=== PATIENT | male | born 1960 | race African-American/Black ===

== ENCOUNTER 2020-06-20 18:05 | Emergency (ER) | payer BC, SELFPAY ==
--- NOTE | ~2020-06-20 | XR_ITS ---
XR chest 1V portable DATE: 06/20/2020 19:05 INDICATION: Syncopal episode for 5 minutes TECHNIQUE: Portable AP chest on 06/20/2020 at 1845 hours COMPARISON: None FINDINGS: Status post sternotomy. Heart size is within normal range. No pulmonary infiltrate or conso lidation, pleural effusion or pulmonary vascular congestion or pneumothorax. IMPRESSION: Status post sternotomy; no active cardiopulmonary disease Reviewed, dictated and finalized at location A.
[2020-06-20 18:07] VITALS: BP 140/64; PULSE 69; RESP 18; TEMP 36.9; O2SAT 97
--- NOTE | 2020-06-20 18:35 | ECG_ITS ---
Measurements Intervals [place] Rate: 73 P: 67 WI: 163 QRS: 53 QRSD: 85 T: -66 QT: 418 QTc: 461 Interpretive Statements SINUS RHYTHM ST-T WAVE ABNORMALITY IN INF/LAT LEADS- CONSIDER ISCHEMIA ABNORMAL ECG Electronically Signed On 06-21-2020 8:18:20 CDT by Alexis Joshi D.O.
[2020-06-20 18:51] LABS: Basophils Percent Auto 0.3 % (0.2-1.2); Eosinophils Absolute Auto 0.1 K/mm3 (0-0.3); Hematocrit 34.3 % (42.0-52.0); Hemoglobin 11.5 g/dL (14.0-18.0); Immature Granulocyte Absolute 0.01 K/mm3 (0.00-0.031); Immature Granulocyte Percent A 0.2 % (0-0.5); Lymphocytes Percent Auto 39.2 % (18.3-44.2); Mean Corpuscular HGB Conc 33.5 g/dl (32-36); Mean Corpuscular Hemoglobin 30.1 pg (26-34); Mean Corpuscular Volume 89.8 fl (80-100); Mean Platelet Volume 9.4 fl (7.4-10.4); Monocytes Absolute Auto 0.6 K/mm3 (0.1-0.6); Monocytes Percent Auto 9.6 % (2.6-8.5); Neutrophils Absolute Auto 2.9 K/mm3 (1.3-6.7); Neutrophils Percent Auto 48.7 % (45.5-73.1); Platelet Count Result 177 k/mm3 (150-375); Red Blood Count 3.82 M/mm3 (4.6-6.20); Red Cell Distribution Width 14.4 % (11.5-14.5); White Blood Count 5.9 K/mm3 (4.5-10.0)
[2020-06-20 19:02] LABS: INR 0.9; Prothrombin Time 12.3 Seconds (11.1-14.7)
[2020-06-20 19:04] LABS: Alanine Aminotransferase 31 U/L (4-50); Albumin Level 4.1 g/dL (3.5-5.1); Alkaline Phosphatase 56 U/L (38-126); Anion Gap 14 mmol/L (8-16); Aspartate Amino Transferase 45 U/L (17-59); Bilirubin,Total 0.4 mg/dL (0.2-1.3); Blood Urea Nitrogen 12 mg/dL (9-20); Carbon Dioxide 22 mmol/L (22-30); Chloride 102 mmol/L (98-107); Estimated CRCL calculation 110 ml/min; Estimated Glomerular Filt Rate > 60; Glucose 92 mg/dL (75-110); Potassium 3.1 mmol/L (3.4-5.0); Sodium 138 mmol/L (137-145)
[2020-06-20 19:05] LABS: D Dimer 0.48 ug/mL (<0.48)
[2020-06-20 19:18] LABS: Troponin I 0.031 ng/mL (0.000-0.034)
--- NOTE | 2020-06-20 20:04 | ED.SYNCOPE ---
HPI - Syncope General Chief Complaint: Syncope Stated Complaint: SYNCOPAL EPISODE Time Seen by Provider: 06/20/20 18:15 Source: patient and family Mode of arrival: EMS Limitations: no limitations History of Present Illness HPI narrative: 59-year-old with a history of hypertension, diabetes was brought in ambulance with complaints of syncopal episode. Patient was sitting in the on the couch passed out for a few minutes. During this time there was no involuntary movement. No bladder or bowel incontinence. Patient denies any chest pain. Denies any palpitation prior to the event. The time he came to the ER he states he is feeling much better. complaint: almost passed out Onset (ago): minute(s) (2 -3) -: minutes(s) Injuries sustained associated with event: none Current symptoms: none Related Data Allergies Allergy/AdvReac Type Severity Reaction Status Date / Time penicillin G Allergy Swelling Verified 06/20/20 18:11 Review of Systems Review of Systems: All systems reviewed & are unremarkable except as noted in HPI and below Constitutional: Constitutional: Reports no additional constitutional complaints ENT: Reports system reviewed and no additional complaints, except as documented Cardiovascular: Cardiovascular: Reports no additional cardiovascular complaints Respiratory: Respiratory: Reports no additional respiratory complaints Gastrointestinal: Gastrointestinal: Reports no additional gastrointestinal complaints Musculoskeletal: Musculoskeletal: Reports no additional musculoskeletal complaints Integumentary/Breasts: Skin/Breast: Reports system reviewed and no additional complaints, except as docu Exam Narrative: Exam Narrative: GENERAL: Well-appearing, well-nourished, and in no acute distress. HEAD: Normocephalic, atraumatic. EYES: PERRLA and EOMI. ENT: Nares clear, no rhinorrhea or epistaxis. Mucous membranes moist. NECK: Supple. CHEST: Clear to auscultation. No respiratory distress. HEART: Regular rate and rhythm. No murmur heard. Normal peripheral pulses. ABDOMEN: Soft, nontender, nondistended, normal active bowel sounds. EXTREMITIES: Normal range of motion. No edema. SKIN: Warm, dry, no rash. NEURO: No focal deficits. Alert and oriented x3. PSYCH: Normal mood and affect. Course Course Emergency Course: With a history of syncopal episode regular do a CBC chemistry EKG and placed on the satellite project site monitor. Vital Signs Vital signs: Vital Signs Temperature 36.9 C 06/20/20 18:07 Pulse Rate 69 06/20/20 18:07 Respiratory Rate 18 06/20/20 18:07 Blood Pressure 140/64 06/20/20 18:07 Pulse Oximetry 97 06/20/20 18:07 Temperature 36.9 C 06/20/20 18:07 Pulse Rate 69 06/20/20 18:07 Respiratory Rate 18 06/20/20 18:07 Blood Pressure 140/64 06/20/20 18:07 Pulse Oximetry 97 06/20/20 18:07 MDM - Syncope Differential Diagnosis Differential diagnosis: Likely syncope due to orthostatic hypotension, vasovagal syncope and pulmonary embolism Lab Data Result diagrams: 06/20/20 18:44 06/20/20 18:44 Labs: Lab Results 06/20/20 06/20/20 06/20/20 Range/Units 18:44 18:44 18:44 WBC 5.9 (4.5-10.0) K/mm3 RBC 3.82 L (4.6-6.20) M/mm3 Hgb 11.5 L (14.0-18.0) g/dL Hct 34.3 L (42.0-52.0) % MCV 89.8 (80-100) fl MCH 30.1 (26-34) pg MCHC 33.5 (32-36) g/dl RDW 14.4 (11.5-14.5) % Plt Count 177 (150-375) k/mm3 MPV 9.4 (7.4-10.4) fl Immature Gran % (Auto) 0.2 (0-0.5) % Neut % (Auto) 48.7 (45.5-73.1) % Lymph % (Auto) 39.2 (18.3-44.2) % [place] % (Auto) 9.6 H (2.6-8.5) % Eos % (Auto) 2.0 (0-4.4) % Baso % (Auto) 0.3 (0.2-1.2) % Lymph # (Auto) 2.30 (0.9-3.2) K/mm3 [place] # (Auto) 0.6 (0.1-0.6) K/mm3 Eos # (Auto) 0.1 (0-0.3) K/mm3 Baso # (Auto) 0.0 (0.0-0.1) K/mm3 Abs Immat Gran (auto) 0.01 (0.00-0.031) K/mm3 Absolute Neuts (auto) 2.9 (1.3-6.7) K/mm3 Absolute Nucle
[2020-06-20 21:03] VITALS: BP 117/67; PULSE 80; RESP 20; O2SAT 99
== END 2020-06-20 21:04 | disposition home or self-care (01) ==
PROVIDERS: Emergency Provider Family Medicine
DX: R55 Syncope and collapse (principal); I10 Essential (primary) hypertension; E11.9 Type 2 diabetes mellitus without complications; R94.31 Abnormal electrocardiogram [ECG] [EKG]
CPT/HCPCS: 36415; 71045; 80053; 84484; 85025; 85380; 85610; 93005; 99284

== ENCOUNTER 2024-09-22 22:23 | Emergency (ER) | payer MEDICARE, SELFPAY ==
--- NOTE | ~2024-09-22 | XR_ITS ---
EXAMINATION: XR chest 1V portable Exam Date/Time: 09/22/2024 22:37 YARD RIGGER HISTORY: syncopal episode Comparison: 06/20/2020. RESULT: Lines, tubes, and devices: Intact sternotomy wires. Mediastinal surgical clips. Lungs and pleura: Subsegmental airspace disease in the left lung base. Cardiomediastinal silhouette: Stable. Calcified node. Other: No acute osseous or upper abdominal finding. IMPRESSION: Subsegmental left basilar atelectasis/consolidation. Aspiration could also be considered in this loca tion. Reviewed, dictated and finalized at location K. RIGGER IMPRESSION: Subsegmental left basilar atelectasis/consolidation. Aspiration could also be c onsidered in this location.
[2024-09-22 22:27] VITALS: BP 117/73; PULSE 77; RESP 15; TEMP 36.6; O2SAT 100
--- NOTE | 2024-09-22 22:29 | ECG_ITS ---
Test Date: 2024-09-22 22:32:58 Measurements Intervals [employer] Rate: 75 P: 30 OH: 145 QRS: 18 QRSD: 97 T: -88 QT: 386 QTc: 431 Interpretive Statements SINUS RHYTHM LOW QRS VOLTAGE IN PRECORDIAL LEADS [QRS DEFLECTION < 1.0 mV IN CHEST LEADS] NONSPECIFIC ST AND T WAVE ABNORMALITY No previous ECG available for comparison Electronically Signed On 09-23-2024 14:53:00 JACKERMAN by Bienvenido Quinonez M.D.
[2024-09-22 23:27] LABS: Basophils Percent Auto 0.3 % (0.2-1.2); Eosinophils Absolute Auto 0.1 K/mm3 (0-0.3); Eosinophils Percent Auto 1.7 % (0-4.4); Hematocrit 37.3 % (42.0-52.0); Hemoglobin 11.7 g/dL (14.0-18.0); Immature Granulocyte Absolute 0.02 K/mm3 (0.00-0.031); Immature Granulocyte Percent A 0.3 % (0-0.5); Lymphocytes Absolute Auto 1.98 K/mm3 (0.9-3.2); Lymphocytes Percent Auto 28.5 % (18.3-44.2); Mean Corpuscular HGB Conc 31.4 g/dl (32-36); Mean Corpuscular Hemoglobin 26.2 pg (26-34); Mean Corpuscular Volume 83.6 fl (80-100); Mean Platelet Volume 9.5 fl (7.4-10.4); Monocytes Absolute Auto 0.5 K/mm3 (0.1-0.6); Monocytes Percent Auto 7.5 % (2.6-8.5); Neutrophils Absolute Auto 4.3 K/mm3 (1.3-6.7); Neutrophils Percent Auto 61.7 % (45.5-73.1); Platelet Count Result 248 k/mm3 (150-375); Red Blood Count 4.46 M/mm3 (4.6-6.20); Red Cell Distribution Width 15.3 % (11.5-14.5); White Blood Count 6.9 K/mm3 (4.5-10.0)
[2024-09-22 23:44] LABS: Alanine Aminotransferase 12 U/L (6-50); Albumin Level 4.1 g/dL (3.5-5.1); Alkaline Phosphatase 70 U/L (38-126); Anion Gap 6 mmol/L (4-12); Aspartate Amino Transferase 27 U/L (17-59); Bilirubin,Total 0.4 mg/dL (0.2-1.3); Blood Urea Nitrogen 23 mg/dL (9-20); Calcium 9.4 mg/dL (8.4-10.2); Carbon Dioxide 28 mmol/L (22-30); Chloride 104 mmol/L (98-107); Estimated CRCL calculation 62 ml/min; Estimated Glomerular Filt Rate > 60; Glucose 135 mg/dL (65-110); Potassium 4.1 mmol/L (3.4-5.0); Sodium 138 mmol/L (137-145)
--- NOTE | 2024-09-22 23:56 | ED_ITS ---
HPI - Syncope General Chief Complaint: Syncope Stated Complaint: SYNCOPE WHILE USING TOILET Time Seen by Provider: 09/22/24 22:41 Source: patient, family ( Sister and daughter) and RN notes reviewed Mode of arrival: EMS ( [facility] Parn[facility]) Limitations: physical limitation History of Present Illness HPI narrative: patient presents after report of an episode of syncope while on the toilet having a large bowel movement. He lost muscle tone and was briefly unresponsive. Family notes that he came back to baseline but then when he sat up again nearly immediately, this occurred again. They note that this had happened once before previous to his stroke. his CVA has left him with deficits. Patient has no complaints. No history of heart failure Though does have a history of open-heart surgery due to coronary artery blockages. Also history of hypertension and diabetes mellitus. Blood glucose 142 mg/dL. Patient denies dizziness, shortness of breath, or chest pain. 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 HEAD: Normocephalic, atraumatic. EYES: patch over 1 eye ENT: Nares clear, no rhinorrhea or epistaxis. NECK: Supple. CHEST: Speaking in full sentences. No respiratory distress. Lungs clear to auscultation bilaterally without wheezes/crackles. HEART: Regular rate and rhythm. . ABDOMEN: Soft, nondistended. EXTREMITIES: Normal range of motion. 1+ bilateral lower extremity edema. SKIN: Warm, dry, no rash. NEURO: unilateral deficits. Alert and oriented though defers much of medication history to family members. PSYCH: Normal mood and affect. Course Vital Signs Vital signs: Vital Signs Temperature 97.8 F 09/22/24 22:27 Pulse Rate 77 09/22/24 22:27 Respiratory Rate 15 09/22/24 22:27 Blood Pressure 117/73 09/22/24 22:27 Pulse Oximetry 100 09/22/24 22:27 Oxygen Delivery Room Air 09/22/24 22:27 Temperature 97.8 F 09/22/24 22:27 Pulse Rate 77 09/23/24 03:30 Respiratory Rate 15 09/23/24 03:30 Blood Pressure 124/70 09/23/24 03:30 Pulse Oximetry 100 09/23/24 03:30 Oxygen Delivery Room Air 09/22/24 22:27 MDM - Syncope MDM Narrative Medical decision making narrative: Patient presents after a syncopal episode while having a large bowel on the toilet. It was noted that he became diaphoretic and briefly lost muscle tone and was unresponsive but then came back to his baseline. He did try a sit-up nearly immediately afterwards and it happened again but has not since recurred. In the emergency department they are afebrile with vital signs within normal limits. discussed with patient and family various causes of syncope and that this likely represents vasovagal syncope of the workup be performed to assess for possible other etiologies. Chest x-ray shows atelectasis. Also consideration of possible aspiration although patient does not currently have white count and has normal vital signs without complaint of chest pain shortness of breath. Theodore Syncope Rule: Congestive heart failure history: 0 Hematocrit <30%: 0 EKG abnormal (changed or any non-sinus rhythm): 0 SOB symptoms: 0 SBP <90mmHg at triage: 0 Considered low risk. ProBNP not elevated enough to suggest acute heart failure. Orthostatics are performed the nurse reports them to me. It is reported that he was a bit unsteady on his feet but not dizzy and at baseline he is unsteady of his on his feet secondary to his known deficits from his stroke. Thus, not newly symptomatic due to orthostatic reasons. Patient stable for discharge at this time. Initial plan was for EMS transportation to be arranged however due to the significant time delay, family did opt to transfer him by private vehicle as they state that if given assistance to get him into the vehicle at the hospital, there are multiple people ready at the home to help with transfer from vehicle into the house. Differential Diagnosis Differential diagnosis: Likely syncope due to orthostatic hypotension, vasovagal syncope, complete atrioventricular block and dehydration Lab Data Attestation: I reviewed the patient's lab results. Lab results narrative: Normocytic anemia, stable from previous 09/22/24 23:22 09/22/24 23:22 Labs: Lab Results 09/22/24 Range/Units 23:22 WBC 6.9 (4.5-10.0) K/mm3 RBC 4.46 L (4.6-6.20) M/mm3 Hgb 11.7 L (14.0-18.0) g/dL Hct 37.3 L (42.0-52.0) % MCV 83.6 (80-100) fl MCH 26.2 (26-34) pg MCHC 31.4 L (32-36) g/dl RDW 15.3 H (11.5-14.5) % Plt Count 248 (150-375) k/mm3 MPV 9.5 (7.4-10.4) fl Immature Gran % (Auto) 0.3 (0-0.5) % Neut % (Auto) 61.7 (45.5-73.1) % Lymph % (Auto) 28.5 (18.3-44.2) % [place] % (Auto) 7.5 (2.6-8.5) % Eos % (Auto) 1.7 (0-4.4) % Baso % (Auto) 0.3 (0.2-1.2) % Lymph # (Auto) 1.98 (0.9-3.2) K/mm3 [place] # (Auto) 0.5 (0.1-0.6) K/mm3 Eos # (Auto) 0.1 (0-0.3) K/mm3 Baso # (Auto) 0.0 (0.0-0.1) K/mm3 Abs Immat Gran (auto) 0.02 (0.00-0.031) K/mm3 Absolute Neuts (auto) 4.3 (1.3-6.7) K/mm3 Absolute Nucleated RBC 0.000 (0.0-0.012) K/mm3 Nucleated RBC % 0.0 (0.0-0.2) % Sodium 138 (137-145) mmol/L Potassium 4.1 (3.4-5.0) mmol/L Chloride 104 (98-107) mmol/L Carbon Dioxide 28 (22-30) mmol/L Anion Gap 6 (4-12) mmol/L BUN 23 H (9-20) mg/dL Creatinine 1.30 (0.7-1.3) mg/dL Estim Creat Clear Calc 62 ml/min Estimated GFR > 60 (59 - ) Glucose 135 H (65-110) mg/dL Calcium 9.4 (8.4-10.2) mg/dL Total Bilirubin 0.4 (0.2-1.3) mg/dL AST 27 (17-59) U/L ALT 12 (6-50) U/L Alkaline Phosphatase 70 (38-126) U/L Troponin I < 0.012 (0.000-0.034) ng/mL NT-Pro-B Natriuret Pep 183 H (19.9-100) pg/mL Total Protein 8.0 (6.3-8.2) g/dL Albumin 4.1 (3.5-5.1) g/dL Imaging Data Radiologist's impression: Subsegmental left basilar atelectasis/consolidation. Aspiration could also be considered in this location. ECG Data EKG #1: Attestation: I personally reviewed and interpreted this ECG as follows: ECG completion date: 09/22/24 ECG completion time: 22:32 Prior ECG tracings: not available for review (No prior for comparison) Interpretation: Normal sinus rhythm at a rate of 75 beats per minute. CA interval 145. QRS 97. QT/QTC 386/414. Good R-wave progression across the precordial leads. T-wave inversions in inferior leads 2, 3, and AVF. Also a T-wave inversion in V6 but not in contiguous lateral precordial leads V5 and none of the other precordial leads V2 -V4. Discharge Plan Discharge Clinical Impression: Syncope, vasovagal, Normocytic anemia Patient Disposition: Home, Self-Care Condition: Stable Instructions: Antibiotic Form, Syncope (DC), Anemia (ED) Additional Instructions: As we discussed, this likely represented vasovagal syncope which can happen when someone bears down to have a bowel movement for example. Follow-up with your primary care physician. If you do not have 1 name of a doctor is listed below. Return to the emergency department any new or worsening symptoms. Continue taking your other medications as prescribed. Patient Language: Danish Prescriptions: No Action albuterol sulfate 2.5 mg /3 mL (0.083 %) Solution For Nebulization 2.5 mg INHALATION Q4H PRN (Reason: Shortness Of Breath Or Wheezing) guaifenesin [Mucus Relief ER] 600 mg Tablet Extended Release 12hr 600 mg PO BID Qty: 60 0RF quetiapine 25 mg Tablet 25 mg PO BID PRN (Reason: unknown) Qty: 30 0RF atorvastatin 40 mg Tablet 40 mg PO HS Qty: 30 0RF buspirone 5 mg Tablet 5 mg PO TID Qty: 30 0RF hydralazine 10 mg Tablet 10 mg PO TID Qty: 90 0RF acetaminophen 325 mg Tablet 650 mg PO Q6H PRN (Reason: unknown) Qty: 90 0RF ipratropium-albuterol 0.5 mg-3 mg(2.5 mg base)/3 mL Solution For Nebulization 3 ml INHALATION Q6H Qty: 100 0RF thiamine HCl (vitamin B1) 100 mg Tablet 100 mg feeding tube DAILY Qty: 30 0RF clopidogrel 75 mg Tablet 75 mg PO DAILY Qty: 30 0RF famotidine 20 mg Tablet 20 mg PO BID Qty: 60 0RF amlodipine 10 mg Tablet 10 mg PO DAILY Qty: 30 0RF insulin regular human 100 unit/mL Solution 15 unit SUBCUT DAILY Qty: 100 0RF aspirin 81 mg Tablet,Chewable 81 mg PO DAILY Qty: 30 0RF folic acid 1 mg Tablet 1 mg PO DAILY Qty: 30 0RF Multiple Vitamin-Minerals Tablet 1 tablet PO DAILY Qty: 30 0RF loratadine 10 mg Tablet 10 mg PO DAILY Qty: 30 0RF sennosides-docusate sodium 8.6-50 mg Capsule 2 tablet PO BID Qty: 60 0RF Follow-up/Referrals: Ramon Mas MD [Physician] - (Family practice) UNKNOWN,DOCTOR [Primary Care Provider] - Time of Disposition: 00:51
[2024-09-23 00:01] VITALS: BP 118/78; PULSE 73; RESP 15; O2SAT 100
[2024-09-23 00:28] LABS: NT Pro B Type Natriuretic Pept 183 pg/mL (19.9-100)
[2024-09-23 00:31] LABS: Troponin I < 0.012 ng/mL (0.000-0.034)
--- NOTE | 2024-09-23 00:35 | PC.NURSE ---
Orthostatic BP readings Supine: HR 72, BP 118/79 Sitting up: HR 77. BP 134/77
[2024-09-23 03:30] VITALS: BP 124/70; PULSE 77; RESP 15; O2SAT 100
== END 2024-09-23 03:30 | disposition home or self-care (01) ==
PROVIDERS: Emergency Provider Student in an Organized Health Care Education/Training Program
DX: R55 Syncope and collapse (principal); D64.9 Anemia, unspecified; I25.10 Atherosclerotic heart disease of native coronary artery without angina pectoris; I10 Essential (primary) hypertension; I65.1 Occlusion and stenosis of basilar artery; I69.391 Dysphagia following cerebral infarction; R13.10 Dysphagia, unspecified; E11.9 Type 2 diabetes mellitus without complications; Z87.891 Personal history of nicotine dependence; Z79.899 Other long term (current) drug therapy; Z79.4 Long term (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; Z79.82 Long term (current) use of aspirin; R94.31 Abnormal electrocardiogram [ECG] [EKG]
CPT/HCPCS: 36415; 71045; 80053; 83880; 84484; 85025; 93005; 99284

== ENCOUNTER 2024-10-04 12:48 | Emergency (ER) | payer MEDICARE, SELFPAY ==
[2024-10-04 12:50] VITALS: BP 129/71; PULSE 72; RESP 16; TEMP 36.9; O2SAT 100
[2024-10-04 13:01] VITALS: O2SAT 100
[2024-10-04 13:53] VITALS: BP 110/77; PULSE 67; RESP 17; O2SAT 100
[2024-10-04] MEDS: MAGNESIUM CITRATE 300 ML BTL PO (13:54)
--- NOTE | 2024-10-04 14:33 | PC.NURSE ---
Pt had a large BM
--- NOTE | 2024-10-04 14:44 | ED_ITS ---
HPI - Recheck/Abnormal Lab/Rx General Chief Complaint: Recheck/Abnormal Lab/Rx Stated Complaint: CONSTIPATION. NO BM SINCE 09/22 Time Seen by Provider: 10/04/24 13:04 History of Present Illness HPI narrative: 63-year-old male presenting from urgent care for concerns of constipation. Marilyn hitchcock has not had a solid bowel movement for approximately 11 days. Patient was otherwise in his normal state of health, lives at home and cared for by his family was present at bedside for collateral formation. Patient is not any a pain states that he is not having any abdominal discomfort or cramping. No nausea or vomiting. He is tolerating p.o. intake and states that he has a good appetite. Family states that he has been eating appropriately but only having occasional smears with a change in without any solid or loose stools. They have tried some senna and MiraLax caps half twice a day without any significant improvement. They went to urgent care today with a underwent an x-ray that showed moderate colonic stool burden but no obstruction or dilated bowel loops. They were sent to the ER for evaluation. Related Data Home Medications ?Medication ?Instructions ?Recorded ?Confirmed ?Last Taken ?Type albuterol sulfate 2.5 mg/3 mL 2.5 mg inhalation Q4H PRN 06/04/24 06/04/24 Unknown History (0.083 %) solution for nebulization Shortness Of Breath Or Wheezing Allergies Allergy/AdvReac Type Severity Reaction Status Date / Time lisinopril Allergy Unknown Verified 10/04/24 12:50 penicillin G Allergy Swelling Verified 10/04/24 12:50 Review of Systems Review of Systems: As reviewed above in HPI [facility] Past Medical History Medical History History of coronary artery disease Diabetes mellitus Hypertension Basilar artery stenosis Balance disorder 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 Impaired communication with impaired cognition Vision disturbance Brainstem stroke Surgical History Surgical History History of open heart surgery Family History Family History Other Controlled diabetes mellitus with hyperglycemia Social History Social History Smoking status: Former smoker Tobacco type: cigars Additional smoking assessment comments: 2 cigars a month Spiritual care concerns: No Exam Narrative: GENERAL: [Well-appearing, well-nourished, and in no acute distress.] HEAD: [Normocephalic, atraumatic.] EYES: Eye patch noted over the left eye ENT: Nares clear, no rhinorrhea or epistaxis. Mucous membranes moist. NECK: Supple. CHEST: [Clear to auscultation. No respiratory distress.] HEART: [Regular rate and rhythm]. No murmur heard. [Normal peripheral pulses.] ABDOMEN: [Soft, nondistended], [nontender], [No rigidity or guarding] EXTREMITIES: Normal range of motion. [No edema.] SKIN: Warm, dry, no rash. NEURO: [No focal deficits]. Alert and oriented [x3.] PSYCH: [Normal mood and affect.] Course Vital Signs Vital signs: Vital Signs Temperature 36.9 C 10/04/24 12:50 Pulse Rate 72 10/04/24 12:50 Respiratory Rate 16 10/04/24 12:50 Blood Pressure 129/71 10/04/24 12:50 Pulse Oximetry 100 10/04/24 12:50 Oxygen Delivery Room Air 10/04/24 12:50 Temperature 36.9 C 10/04/24 12:50 Pulse Rate 67 10/04/24 13:53 Respiratory Rate 17 10/04/24 13:53 Blood Pressure 110/77 10/04/24 13:53 Pulse Oximetry 100 10/04/24 13:53 Oxygen Delivery Room Air 10/04/24 12:50 MDM - Recheck/Abnormal Lab/Rx MDM Narrative Medical decision making narrative: 63-year-old male presenting for any acute constipation. He has no history of significant abdominal surgeries or any injuries. No bowel obstruction history. He has a soft nondistended nontender abdomen. No nausea or vomiting. No diarrhea. No fever chills. No recent injuries or illnesses. Family at bedside states that he has not had a soft bowel movement since 09/22. Patient had some loose smears after trying MiraLax at home. No other medication changes knees not any opiate medications based on his medication list present at bedside. Otherwise is well appearing not any acute distress and has normal vital signs. We have given him a dose of magnesium citrate as well as a enema. Patient had significant relief and had a large bowel movement here after treatments. Patient and family felt comfortable with discharge home with high- fiber diet supplements, magnesium citrate as needed and instructions for follow- up with his PCP as well as return precautions. They verbalized appreciation and understanding and were safe for discharge at this time. Medical Records Attestation: I reviewed the patient's medical records. Discharge Plan Discharge Clinical Impression: Acute constipation Patient Disposition: Home, Self-Care Condition: Stable Instructions: Antibiotic Form, Constipation (DC), High Fiber Diet (ED) Additional Instructions: We will send you home with magnesium citrate as well as instructions on a high- fiber diet. There are lots of fiber supplements in your local pharmacy or grocery store that he can take. There are also high fiber and probiotic food and beverages and supplements that can also help for keeping him regular. Return with any new or worsening concerns at any time otherwise follow-up with your regular doctor. Patient Language: Maori Prescriptions: New magnesium citrate Solution 150 ml PO BID PRN (Reason: constipation) Qty: 296 0RF No Action albuterol sulfate 2.5 mg /3 mL (0.083 %) Solution For Nebulization 2.5 mg INHALATION Q4H PRN (Reason: Shortness Of Breath Or Wheezing) guaifenesin [Mucus Relief ER] 600 mg Tablet Extended Release 12hr 600 mg PO BID Qty: 60 0RF quetiapine 25 mg Tablet 25 mg PO BID PRN (Reason: unknown) Qty: 30 0RF atorvastatin 40 mg Tablet 40 mg PO HS Qty: 30 0RF buspirone 5 mg Tablet 5 mg PO TID Qty: 30 0RF hydralazine 10 mg Tablet 10 mg PO TID Qty: 90 0RF acetaminophen 325 mg Tablet 650 mg PO Q6H PRN (Reason: unknown) Qty: 90 0RF ipratropium-albuterol 0.5 mg-3 mg(2.5 mg base)/3 mL Solution For Nebulization 3 ml INHALATION Q6H Qty: 100 0RF thiamine HCl (vitamin B1) 100 mg Tablet 100 mg feeding tube DAILY Qty: 30 0RF clopidogrel 75 mg Tablet 75 mg PO DAILY Qty: 30 0RF famotidine 20 mg Tablet 20 mg PO BID Qty: 60 0RF amlodipine 10 mg Tablet 10 mg PO DAILY Qty: 30 0RF insulin regular human 100 unit/mL Solution 15 unit SUBCUT DAILY Qty: 100 0RF aspirin 81 mg Tablet,Chewable 81 mg PO DAILY Qty: 30 0RF folic acid 1 mg Tablet 1 mg PO DAILY Qty: 30 0RF Multiple Vitamin-Minerals Tablet 1 tablet PO DAILY Qty: 30 0RF loratadine 10 mg Tablet 10 mg PO DAILY Qty: 30 0RF sennosides-docusate sodium 8.6-50 mg Capsule 2 tablet PO BID Qty: 60 0RF Follow-up/Referrals: PHYSICIAN NOT ON STAFF,NONSTAFF [Primary Care Provider] - Time of Disposition: 14:43
[2024-10-04 14:52] VITALS: BP 140/83; PULSE 70; RESP 20; O2SAT 100
--- OUTSIDE RECORDS SUMMARY | 2024-10-11 19:33 | XMS_ITS | Data Portability ---
Author Organization [employer], Main Office Address [address] [place] [address] Assessment Encounter Date Assessment Date Assessment LastModified by Organization Details LastModified Time 08/26/2024 08/26/2024 Removal of PEG tube today in the office. Instructed to remove occlusive dressing in 72 hours, f/u PRN. [email or web address] Not available 08/27/2024 12:12:08 Plan of Treatment Reminders Order Date Submit Date Provider Last Modified By Organization Details Last Modified Time Details Appointments None record ed. Lab None record ed. Referral None record ed. Procedures None record ed. Surgeries None record ed. Imaging None record ed. Medication Orders None record ed. Patient TargetsNo targets recorded. Patient InstructionsNo instructions recorded. Reason for Referral None Reported. Problems Name Problem SNOMED Code Status Onset Date Resolution Date Notes Provider Name and Address Organization Details Recorded Time Difficulty eating 788911021 Active 024 Isaac varghese MD [address], [place], [address], [employer] 12:12:51 Problem Notes None recorded. Procedures Surgical History Date Name Laterality Status Provider Name and Address Organization Details Recorded Time Blank Procedure Note completed Isaac Ruiz MD [address], [place], [address], [employer] 08/26/2024 17:27:52 other completed Andreia Dobson MA [employer] 08/26/2024 11:53:51 other completed Andreia Dobson MA [employer] 08/25/2024 10:57:07 Imaging Results None recorded. Procedure Notes None recorded. Medical Equipment None Reported. Allergies Allergen ID Allergen Name Allergen Category Reaction Reaction Severity Criticality Documentation Date Start Date Code Code System Note Provider Name and Address Organization Details Recorded Time 30404 lisinopri l medicatio n Not available Not available Not available 08/25/2024 75244 [facility] 10:57:24 29514 Medicinal product containin g penicilli n and acting as antibacte rial agent (product) medicatio n Not available Not available Not available 08/25/2024 83137 05 [facility]ED [facility] 10:57:59 Medications Name Sig Start Date Stop Date Status Note LastModified by Organization Details LastModified Time senna s 8.6-50mg tablets TAKE 2 TABLETS BY MOUTH TWICE DAILY active Not Available Not Available No t Available multivitamin tablet TAKE 1 TABLET BY MOUTH EVERY DAY active Not Available Not Available No t Available quetiapine 25 mg tablet TAKE 1 TABLET BY MOUTH TWICE DAILY NEEDED active Not Available Not Available No t Available atorvastatin 40 mg tablet TAKE ONE TABLET PER TUBE/PEG EVERY NIGHT AT BEDTIME active Not Available Not Available N ot Available buspirone 5 mg tablet TAKE 1 TABLET BY MOUTH TWICE DAILY active Not Available Not Available No t Available hydralazine 10 mg tablet TAKE 1 TABLET BY MOUTH THREE TIMES DAILY active Not Available Not Available Not Available ipratropium 0.5 mg-albuterol 3 mg (2.5 mg base)/3 mL nebulization soln INHALE 3ML VIA NEBULIZER EVERY 6 HOURS active Not Available Not Available No t Available clopidogrel 75 mg tablet TAKE ONE TABLET PER TUBE/PEG ONCE DAILY active Not Available Not Available N ot Available famotidine 20 mg tablet TAKE ONE TABLET PER TUBE/PEG TWICE DAILY active Not Available Not Available Not Available amlodipine 10 mg tablet TAKE ONE TABLET PER TUBE/PEG ONCE DAILY active Not Available Not Available N ot Available folic acid 1 mg tablet TAKE ONE TABLET BY MOUTH PER TUBE/PEG ONCE DAILY active Not Available Not Available N ot Available polyethylene glycol 3350 17 gram/dose oral powder MIX 17 GRAMS WITH 8 OUNCES OF LIQUID AND DRINK ONCE EVERY DAY. HOLD FOR LOOSE STOOLS. active Not Available Not Available No t Available albuterol sulfate HFA 90 mcg/actuatio n aerosol inhaler INHALE 2 PUFFS BY MOUTH EVERY 4 TO 6 HOURS active Not Available Not Available No t Available loratadine 10 mg tablet TAKE ONE TABLET PER TUBE/PEG ONCE DAILY active Not Available Not Available N ot Available Lantus Solostar U-100 Insulin 100 unit/mL (3 mL) subcutaneous pen ADMINISTER 15 UNITS UNDER THE SKIN EVERY NIGHT AT BEDTIME active Not Available Not Available No t Available Vitals Date Recorded Body height Body mass index (BMI) Body weight Provider Name and Address Organization Details Last Updated DateTime 08/26/2024 193.04 cm 32.3 kg/m2 147440.98 g Andreia Dobson MA [employer] 08/26/2024 11:52:41 Social History Question Answer Notes LastModified by Organizat ion Details LastModified Time Tobacco Smoking Status Former Smoker Andreia Dobson MA [facility] [employer] 08/25/2024 10:55:58 What Is Your Level Of Alcohol Consumption? None [place] [address] Information not available 08/25/2024 What Is Your Level Of Caffeine Consumption? None [place] [address] Information not available 08/26/2024 Are You Currently Employed? [place] [address] Information not available 08/26/2024 Do You Use Any Illicit Or Recreational Drugs? No [place] [address] Information not available 08/26/2024 Sex: Unknown Functional Status None recorded. Mental Status None recorded. Family History Relationship Description Onset Age of this Age Resolved Age Notes LastModified by Organization Details LastModified Time Father Diabetes mellitus [facility]37 Not available 2023 10:51:31 Father Myocardial infarction ess37 Not available 08/25 10:52:10 Mother Hypertensive disorder [email or web address] Not available 2023 10:52:28 Mother Family history of malignant neoplasm of ovary ess37 Not available 2023 10:53:11 Sister Diabetes mellitus ess37 Not available 2023 10:53:27 Sister Hypertensive disorder ess37 Not available 2023 10:53:48 Medical History Condition Response DIABETES, TYPE Y CORONARY ARTERY DISEASE (CAD) Y GERD/NAUSEA Y HYPERTENSION Y SLEEP APNEA Y Past Encounters Encounter ID Performer Location Encounter Start Date Encounter Closed Date Diagnosis/Indication Diagnosis SNOMED-CT Code Diagnosis ICD10 Code [id number] Isaac cordova MD [facility] General Surgery [address] [place] [address] 08/26/2024 11:10:15 09/10/2024 11:42:25 Difficulty eating 280173159 R63.30 Health Concerns Section Related Observation LastModified by Organization Detai ls LastModified Time None Recorded Concern Status LastModified by Organization Details LastModified Time None Recorded Advance Directives Directive None Recorded Payers Encounter Date Sequence Insurance Name Policy Number Policy Joe Covered Member ID Joe Member ID Guarantor Name 08/26/2024 1 [place] Yaya Vazquez [id number] Yaya Vazquez Notes Date Note Type Note Provider Name and Address Organization Details Recorded Time 08/26/2024 text/html Patient presents to the office for PEG tube removal. Family states the PEG tube was placed in January with endoscopy at an outside facility. They have brought records from the placement for review. The patient has not needed to use the feeding tube for the past two weeks. He has been recovering fom a stroke and doing well, tolerating oral intake and gaining weight. Care team recommended PEG removal. Family continues to flush twice daily. Isaac Ruiz MD [address] [facility], [place], [address], [facility] [employer] 08/27/2024 12:13:21
--- OUTSIDE RECORDS SUMMARY | 2024-10-11 19:33 | XMS_ITS | Continuity of Care Document ---
Author Organization [employer], [facility] General Surgery Address [address] [place] [address] Assessment Encounter Date Assessment Date Assessment LastModified [...] Address Organization Details Recorded Time Difficulty eating 842681062 Active 024 Isaac varghese MD [address], [address], [place], [address], [employer] 12:12:51 Problem Notes None recorded. Procedures Surgical History Date Name Laterality Status Provider Name and Address Organization Details Recorded Time Blank Procedure Note completed Isaac Ruiz MD [address], [place], [address], [employer] 08/26/2024 17:27:52 4 other completed Andreia Dobson MA [employer] 08/26/2024 11:53:51 other completed Andreia Dobson MA [employer] 08/25/2024 10:57:07 Imaging Results None recorded. Procedure Notes None recorded. Medical Equipment None Reported. Allergies Allergen ID Allergen Name Allergen Category Reaction Reaction Severity Criticality Documentation Date Start Date Code Code System Note Provider Name and Address Organization Details Recorded Time 51126 lisinopri l medicatio n Not available Not available Not available 08/25/2024 83622 [facility]Norm [facility] 10:57:24 98109 Medicinal product containin g penicilli n and acting as antibacte rial agent (product) medicatio n Not available Not available Not available 08/25/2024 36214 05 [facility]ED [facility] 10:57:59 Medications Name Sig Start Date Stop [...] Updated DateTime 08/26/2024 193.04 cm 32.3 kg/m2 595250.98 g Andreia Dobson MA [employer] [facility] [employer] 08/26/2024 11:52:41 Social History Question Answer Notes LastModified by Organizat ion Details LastModified Time Tobacco Smoking Status Former Smoker Andreia Dobson MA [facility] [employer] 08/25/2024 10:55:58 What Is Your Level Of Alcohol Consumption? None [place] [address] Information not available 08/25/2024 What Is Your Level Of Caffeine Consumption? None [place] [address] Information not available 08/26/2024 Are You Currently Employed? No [place] [address] Information not available 08/26/2024 Do You Use Any Illicit Or Recreational Drugs? No [place] [address] Information not available 08/26/2024 Sex: Unknown Functional Status None recorded. Mental Status None recorded. Family History Relationship Description Onset Age of this Age Resolved Age Notes LastModified by Organization Details LastModified Time Father Diabetes mellitus [facility]37 Not available 2023 10:51:31 Father Myocardial infarction [facility]37 Not available 08/25 10:52:10 Mother Hypertensive disorder [email or web address] Not available 2023 10:52:28 Mother Family history of malignant neoplasm of ovary ess37 Not available 2023 10:53:11 Sister Diabetes mellitus ess37 Not available 2023 10:53:27 Sister Hypertensive disorder ess37 Not available 2023 10:53:48 Medical History Condition Response SLEEP APNEA Y GERD/NAUSEA Y CORONARY ARTERY DISEASE (CAD) Y DIABETES, TYPE Y HYPERTENSION Y Past Encounters Encounter ID Performer Location Encounter Start Date Encounter Closed Date Diagnosis/Indication Diagnosis SNOMED-CT Code Diagnosis ICD10 Code [id number] Isaac cordova MD [facility] General Surgery [address] [place] [address] 08/26/2024 11:10:15 09/10/2024 11:42:25 Difficulty eating 170553825 R63.30 Health Concerns Section Related Observation LastModified by Organization Detai ls LastModified Time None Recorded Concern Status LastModified by Organization Details LastModified Time None Recorded Payers Encounter Date Sequence Insurance Name Policy Number Policy Joe Covered Member ID Joe Member ID Guarantor Name 08/26/2024 1 [place] Yaya Vazquez [id number] Yaya Vazquez Notes Date Note Type [...] flush twice daily. Isaac Ruiz MD [address], [place], [address], [place] [employer] 08/27/2024 12:13:21
--- OUTSIDE RECORDS SUMMARY | 2024-10-11 19:40 | XMS_ITS | Patient Health Summary ---
Author Organization [facility] Address [address] [place] [address] Care Team Providers Care Blaster Helper Name Role Phone Sylvain Daniels MD Unavailable [phone] Kiana Cole MD Primary Care Provider Note from [facility],non-owned Affiliates and Associated Physician Practices is amultiple site organization consisting of ambulatory clinics and hospital sitesin [place], [place], [place] and [place]. This disclosure is being madepursuant to the Care Everywhere program and may not contain all information available regarding this patient. Last updated 18.[facility] Allergies * Lisinopril(Angioedema) -High Criticality * Lisinopril(Other,Urticaria) -Medium Criticality * Penicillins(Swelling) * Penicillin V(Rash) -Medium Criticality * Penicillins(Other,Urticaria) -Medium Criticality Medications * Be aware that medications may not be up to date on this document. Alwaysverify current medications with the patient. * albuterol (Proventil;Ventolin) (2.5 MG/3ML) 0.083% nebulizer solution(Started 02/15/2024) Inhale 2.5 (two and one-half) mg by mouth every 4 hours as needed for Shortness of Breath or Wheezing * senna-docusate (Senokot-S) 8.6-50 MG tablet(Started 02/15/2024) 2 (two) tablets by Enteral Tube route 2 times daily * multiple vitamins with minerals tablet(Started 02/16/2024) 1 (one) tablet by Enteral Tube route once daily * acetaminophen (Tylenol) 325 MG tablet(Started 03/12/2024) 2 (two) tablets by Per G Tube route every 6 hours as needed * QUEtiapine (SEROquel) 25 MG tablet(Started 04/11/2024) Insert 1 (one) tablet into appropriate tube 2 times daily as needed * albuterol-ipratropium (Duo-Neb) 0.5-2.5 (3) MG/3ML nebulizer solution(Started 09/17/2024) Inhale 3 mL by mouth every 6 hours Reasons: Asthma 5 refills by 09/17/2025 * amLODIPine (Norvasc) 10 MG tablet(Started 09/17/2024) 1 (one) tablet by Enteral Tube route once daily 3 refills by 09/17/2025 * aspirin (Aspirin) 81 MG chew tablet(Started 09/17/2024) 1 (one) tablet by Enteral Tube route once daily 3 refills by 09/17/2025 * atorvastatin (Lipitor) 40 MG tablet(Started 09/17/2024) 1 (one) tablet by Enteral Tube route at bedtime 3 refills by 09/17/2025 * clopidogrel (plaVIX) 75 MG tablet(Started 09/17/2024) 1 (one) tablet by Enteral Tube route once daily 3 refills by 09/17/2025 * famotidine (Pepcid) 20 MG tablet(Started 09/17/2024) 1 (one) tablet by Enteral Tube route 2 times daily 3 refills by 09/17/2025 * folic acid (Folvite) 1 MG tablet(Started 09/17/2024) 1 (one) tablet by Enteral Tube route once daily 3 refills by 09/17/2025 * busPIRone (Buspar) 5 MG tablet(Started 09/17/2024) 1 (one) tablet by Per G Tube route 3 times daily Taking bid 3 refills by 09/17/2025 * insulin glargine (Lantus/Semglee) 100 units/mL pen(Started 09/17/2024) Inject 11 (eleven) Units subcutaneously at bedtime 3 refills by 09/17/2025 * loratadine (Claritin) 10 MG tablet(Started 09/17/2024) 1 (one) tablet by Per G Tube route once daily 3 refills by 09/17/2025 Ended Medications* aspirin (Aspirin) 81 MG chew tablet(Started 02/16/2024) (Discontinued) 1 (one) tablet by Enteral Tube route once daily * atorvastatin (Lipitor) 40 MG tablet(Started 02/15/2024)(Discontinued) 1 (one) tablet by Enteral Tube route at bedtime * amLODIPine (Norvasc) 10 MG tablet(Started 02/16/2024)(Discontinued) 1 (one) tablet by Enteral Tube route once daily * folic acid (Folvite) 1 MG tablet(Started 02/16/2024)(Discontinued) 1 (one) tablet by Enteral Tube route once daily * clopidogrel (plaVIX) 75 MG tablet(Started 02/16/2024)(Discontinued) 1 (one) tablet by Enteral Tube route once daily * famotidine (Pepcid) 20 MG tablet(Started 02/15/2024)(Discontinued) 1 (one) tablet by Enteral Tube route 2 times daily * albuterol-ipratropium (Duo-Neb) 0.5-2.5 (3) MG/3ML nebulizer solution(Started 02/15/2024)(Discontinued) Inhale 3 mL by mouth every 6 hours Reasons: Asthma * busPIRone (Buspar) 5 MG tablet(Started 03/12/2024)(Discontinued) 1 (one) tablet by Per G Tube route 3 times daily Taking bid * loratadine (Claritin) 10 MG tablet(Started 04/11/2024)(Discontinued) 1 (one) tablet by Per G Tube route once daily * insulin glargine (Lantus/Semglee) 100 units/mL pen(Discontinued) Inject 11 (eleven) Units subcutaneously at bedtime Active Problems Problem Noted Date Diagnosed Date PVC (premature ventricular contraction) 08/12/20 24 H/O: CVA (cerebrovascular accident) 05/26/2024 Seizure-like activity 05/26/2024 Basilar artery stenosis 05/26/2024 Cerebrovascular accident (CVA), unspecified mech anism 05/25/2024 Dysphagia following cerebral infarction 03/19/20 24 Impaired cognition 03/19/2024 Cerebrovascular accident 03/12/2024 Problem with highly complex treatment regime 12/2023 Staphylococcus aureus infection 02/08/2024 Altered mental status, unspe cified altered mental status type 01/23/2024 Hypoxia 01/23/2024 Acute hypoxemic respiratory failure 07/26/2022 Hyperlipidemia 08/05/2020 Nocturia 08/05/2020 Weight gain 08/05/2020 Other chest pain 09/04/2018 S/P CABG x 3 01/24/2018 CAD (coronary artery disease) 01/23/2018 Essential hypertension 01/23/2018 Controlled type 2 diabetes m ellitus without complication, without long-term current use of insulin 09/28/2011 Asthma Resolved Problems Problem Noted Date Diagnosed Date Resolved Date Morbid obesity with BMI of 40.0-44.9, adult 08/05/2020 09/17/2024 Wound of sternal region 02/23/201807/16 Superficial postoperative wound infection 02/23/2018 08/05/2020 Abnormal stress test 11/12/2017 020 Obesity (BMI 30-39.9) 04/24/20122019 Immunizations * COVID PFIZER 12+YR 30MCG/0.3mL(Given 09/17/2023) * Covid Pfizer primary monovalent 12+ yr 0.3mL Purple cap(Given 09/17/2023) * FLU VACCINE TRI IIV3 SPLIT IM (FLUVIRIN)(Given 10/11/2017) * INFLUENZA(Given 06/29/2019, 09/03/2018) * INFLUENZA VACCINE, QUADR. (FLUZONE; FLULAVAL; FLUARIX; AFLURIA QUADRIVALENT; 6MO+), 0.5 ML (IIV4)(Given 09/17/2023, 10/05/2017) * PNEUMOCOCCAL PPSV23(Given 11/05/2018, 02/29/2012) * TD (ADULT), 5 LF TETANUS TOXOID, ADSORBED, PF(Given 10/15/2007) Social History Tobacco Use Types Packs/Day Years Used Date Smoking Tobacco: Former Cigars S tarted: 1997 Smokeless Tobacco: Never Tobacco Cessation:Counseling Given: No Comments:3-4 times / month-2020 says 1x/month Alcohol Use Standard Drinks/Week Comments Not Currently 10 (1 standard drink = 0.6 oz [...] Date Recorded Patient Health Questionnaire-2 Score 0 09/17/2024 [facility] - Occupational Stress [...] place to sleep or slept in a assisted (including now)? No 05/26/2024 Education Answer Date Recorded What is the highest level of school you have completed or the highest degree you have received? Bachelor's degree (e.g., BA, AB, BS) 08/05/2020 Sex and Gender Information Value Date Recorded Sex Assigned at Not on file Gender Identity Not on file Sexual Orientation Not on file Last Filed Vital Signs Vital Sign Reading Time Taken Comments Blood Pressure 124/83 09/17/2024 8:17 AM RESEARCH PROGRAM ASSISTANT Pulse 101 09/17/2024 8:17 AM RESEARCH PROGRAM ASSISTANT Temperature 35.8 ??C (96.5 ??F) 09/17/2024 8:17 AM CS T Respiratory Rate 10 08/29/2024 8:44 AM RESEARCH PROGRAM ASSISTANT Oxygen Saturation 96% 09/17/2024 8:17 AM RESEARCH PROGRAM ASSISTANT Inhaled Oxygen Concentration 21% 02/15/2024 3 :17 PM CDT Weight 120.2 kg (265 lb) 09/17/2024 8:17 AM RESEARCH PROGRAM ASSISTANT Height 193 cm (6' 4 ) 09/17/2024 8:17 AM RESEARCH PROGRAM ASSISTANT Body Mass Index 32.26 09/17/2024 8:17 AM RESEARCH PROGRAM ASSISTANT Procedures * HEMOGLOBIN A1C - POINT OF CARE (AMB) SMGS(Performed 09/17/2024) Performed for Type 2 diabetes mellitus without complication, with long-term current use of insulin (HCC) * EYE EXAM(Performed 08/11/2024) * CARDIAC PROCEDURE ORDER(Performed 07/18/2024) * CARDIAC PROCEDURE ORDER(Performed 07/15/2024) * GLUCOSE - POINT OF CARE(Performed 06/04/2024) * GLUCOSE - POINT OF CARE(Performed 06/04/2024) * PHOSPHORUS BLOOD(Performed 06/04/2024) * MAGNESIUM BLOOD(Performed 06/04/2024) * CBC W/O DIFFERENTIAL(Performed 06/04/2024) * BASIC METABOLIC PANEL (CALCIUM TOTAL)(Performed 06/04/2024) * GLUCOSE - POINT OF CARE(Performed 06/04/2024) * GLUCOSE - POINT OF CARE(Performed 06/03/2024) * GLUCOSE - POINT OF CARE(Performed 06/03/2024) * ECHO COMPLETE W CONTRAST W BUBBLE STUDY(Performed 06/03/2024) Performed for Syncope, unspecified syncope type * FL SWALLOWING FUNCTION STUDY(Performed 06/03/2024) Performed for Cerebrovascular accident (CVA), unspecified mechanism (HCC), Dysphagia, unspecified type * GLUCOSE - POINT OF CARE(Performed 06/03/2024) * GLUCOSE - POINT OF CARE(Performed 06/03/2024) * PHOSPHORUS BLOOD(Performed 06/03/2024) * MAGNESIUM BLOOD(Performed 06/03/2024) * CBC W/O DIFFERENTIAL(Performed 06/03/2024) * BASIC METABOLIC PANEL (CALCIUM TOTAL)(Performed 06/03/2024) * GLUCOSE - POINT OF CARE(Performed 06/02/2024) * GLUCOSE - POINT OF CARE(Performed 06/02/2024) * GLUCOSE - POINT OF CARE(Performed 06/02/2024) * GLUCOSE - POINT OF CARE(Performed 06/02/2024) * PHOSPHORUS BLOOD(Performed 06/02/2024) * MAGNESIUM BLOOD(Performed 06/02/2024) * CBC W/O DIFFERENTIAL(Performed 06/02/2024) * BASIC METABOLIC PANEL (CALCIUM TOTAL)(Performed 06/02/2024) * GLUCOSE - POINT OF CARE(Performed 06/01/2024) * PHOSPHORUS BLOOD(Performed 06/01/2024) * MAGNESIUM BLOOD(Performed 06/01/2024) * CBC W/O DIFFERENTIAL(Performed 06/01/2024) * BASIC METABOLIC PANEL (CALCIUM TOTAL)(Performed 06/01/2024) * GLUCOSE - POINT OF CARE(Performed 05/31/2024) * GLUCOSE - POINT OF CARE(Performed 05/31/2024) * GLUCOSE - POINT OF CARE(Performed 05/31/2024) * GLUCOSE - POINT OF CARE(Performed 05/31/2024) * PHOSPHORUS BLOOD(Performed 05/31/2024) * MAGNESIUM BLOOD(Performed 05/31/2024) * CBC W/O DIFFERENTIAL(Performed 05/31/2024) * BASIC METABOLIC PANEL (CALCIUM TOTAL)(Performed 05/31/2024) * GLUCOSE - POINT OF CARE(Performed 05/30/2024) * GLUCOSE - POINT OF CARE(Performed 05/30/2024) * GLUCOSE - POINT OF CARE(Performed 05/30/2024) * GLUCOSE - POINT OF CARE(Performed 05/30/2024) * TSH REFLEX FREE T4(Performed 05/30/2024) * PHOSPHORUS BLOOD(Performed 05/30/2024) * MAGNESIUM BLOOD(Performed 05/30/2024) * CBC W/O DIFFERENTIAL(Performed 05/30/2024) * BASIC METABOLIC PANEL (CALCIUM TOTAL)(Performed 05/30/2024) * GLUCOSE - POINT OF CARE(Performed 05/30/2024) * GLUCOSE - POINT OF CARE(Performed 05/29/2024) * GLUCOSE - POINT OF CARE(Performed 05/29/2024) * GLUCOSE - POINT OF CARE(Performed 05/29/2024) * EKG 12-LEAD(Performed 05/29/2024) Performed for Syncope, unspecified syncope type * GLUCOSE - POINT OF CARE(Performed 05/29/2024) * CT ANGIO BRAIN NECK STROKE(Performed 05/29/2024) Performed for Cerebrovascular accident (CVA), unspecified mechanism (HCC) * CREATININE - POCT INTERFACED(Performed 05/29/2024) * INR WHOLE BLOOD - POINT OF CARE (IP) STROKE(Performed 05/29/2024) * CT BRAIN STROKE(Performed 05/29/2024) Performed for Cerebrovascular accident (CVA), unspecified mechanism (HCC) * GLUCOSE - POINT OF CARE(Performed 05/29/2024) * PHOSPHORUS BLOOD(Performed 05/29/2024) * MAGNESIUM BLOOD(Performed 05/29/2024) * CBC W/O DIFFERENTIAL(Performed 05/29/2024) * BASIC METABOLIC PANEL (CALCIUM TOTAL)(Performed 05/29/2024) * GLUCOSE - POINT OF CARE(Performed 05/28/2024) * GLUCOSE - POINT OF CARE(Performed 05/28/2024) * GLUCOSE - POINT OF CARE(Performed 05/28/2024) * GLUCOSE - POINT OF CARE(Performed 05/28/2024) * PHOSPHORUS BLOOD(Performed 05/28/2024) * MAGNESIUM BLOOD(Performed 05/28/2024) * CBC W/O DIFFERENTIAL(Performed 05/28/2024) * BASIC METABOLIC PANEL (CALCIUM TOTAL)(Performed 05/28/2024) * GLUCOSE - POINT OF CARE(Performed 05/27/2024) * GLUCOSE - POINT OF CARE(Performed 05/27/2024) * GLUCOSE - POINT OF CARE(Performed 05/27/2024) * GLUCOSE - POINT OF CARE(Performed 05/27/2024) * PHOSPHORUS BLOOD(Performed 05/27/2024) * MAGNESIUM BLOOD(Performed 05/27/2024) * CBC W/O DIFFERENTIAL(Performed 05/27/2024) * BASIC METABOLIC PANEL (CALCIUM TOTAL)(Performed 05/27/2024) * GLUCOSE - POINT OF CARE(Performed 05/26/2024) * CT ANGIO BRAIN AND NECK(Performed 05/26/2024) Performed for Cerebrovascular accident (CVA), unspecified mechanism (HCC) * MRI BRAIN WO CONTRAST(Performed 05/26/2024) Performed for Cerebrovascular accident (CVA), unspecified mechanism (HCC) * GLUCOSE - POINT OF CARE(Performed 05/26/2024) * CBC W AUTO DIFFERENTIAL(Performed 05/26/2024) * PHOSPHORUS BLOOD(Performed 05/26/2024) * MAGNESIUM BLOOD(Performed 05/26/2024) * BASIC METABOLIC PANEL (CALCIUM TOTAL)(Performed 05/26/2024) * HEMOGLOBIN A1C - POINT OF CARE (AMB)(Performed 05/22/2024) Performed for Other specified diabetes mellitus with other specified complication, without long-term current use of insulin (HCC) * GLUCOSE - POINT OF CARE(Performed 05/19/2024) * CT LUMBAR SPINE WO CONTRAST(Performed 05/17/2024) Performed for Fall, initial encounter * CT THORACIC SPINE WO CONTRAST(Performed 05/17/2024) Performed for Fall, initial encounter * CT CERVICAL SPINE WO CONTRAST(Performed 05/17/2024) Performed for Fall, initial encounter * CT HEAD WO CONTRAST(Performed 05/17/2024) Performed for Fall, initial encounter * XR SHOULDER RIGHT 2VW OR MORE(Performed 05/17/2024) Performed for Fall, initial encounter * XR PELVIS 1 OR 2VW(Performed 05/17/2024) Performed for Fall, initial encounter * XR CHEST 1VW PORTABLE(Performed 05/17/2024) Performed for Fall, initial encounter * CK BLOOD(Performed 05/17/2024) * COMPREHENSIVE METABOLIC PANEL(Performed 05/17/2024) * CBC W AUTO DIFFERENTIAL(Performed 05/17/2024) * XR ABDOMEN KUB PORTABLE(Performed 04/28/2024) Performed for Complaint associated with gastric tube (HCC) * XR ABDOMEN KUB(Performed 04/21/2024) Performed for Gastrostomy tube dysfunction (HCC) * SARS-COV-2 (COVID-19) RAPID(Performed 04/10/2024) * BASIC METABOLIC PANEL (CALCIUM TOTAL)(Performed 04/10/2024) * CBC W/O DIFFERENTIAL(Performed 04/10/2024) * XR CHEST 1VW PORTABLE(Performed 04/08/2024) * BASIC METABOLIC PANEL (CALCIUM TOTAL)(Performed 04/07/2024) * CBC W/O DIFFERENTIAL(Performed 04/07/2024) * FL SWALLOWING FUNCTION STUDY(Performed 04/04/2024) * BASIC METABOLIC PANEL (CALCIUM TOTAL)(Performed 04/03/2024) * CBC W/O DIFFERENTIAL(Performed 04/03/2024) * BASIC METABOLIC PANEL (CALCIUM TOTAL)(Performed 03/31/2024) * CBC W/O DIFFERENTIAL(Performed 03/31/2024) * BASIC METABOLIC PANEL (CALCIUM TOTAL)(Performed 03/27/2024) * CBC W/O DIFFERENTIAL(Performed 03/27/2024) * BASIC METABOLIC PANEL (CALCIUM TOTAL)(Performed 03/24/2024) * CBC W/O DIFFERENTIAL(Performed 03/24/2024) * BASIC METABOLIC PANEL (CALCIUM TOTAL)(Performed 03/20/2024) * CBC W/O DIFFERENTIAL(Performed 03/20/2024) * CT HEAD WO CONTRAST(Performed 03/19/2024) * MN EGD FLEX TRANSORAL W PLCMT GTUBE PERC(Performed 03/17/2024) * EGD WITH PEG PLACEMENT(Performed 03/17/2024) * BASIC METABOLIC PANEL (CALCIUM TOTAL)(Performed 03/17/2024) * CBC W/O DIFFERENTIAL(Performed 03/17/2024) * BASIC METABOLIC PANEL (CALCIUM TOTAL)(Performed 03/13/2024) * CBC W/O DIFFERENTIAL(Performed 03/13/2024) * BLOOD GASES ART + COOX PANEL(Performed 03/11/2024) * COMPREHENSIVE METABOLIC PANEL(Performed 03/11/2024) * CBC W/O DIFFERENTIAL(Performed 03/11/2024) * COMPREHENSIVE METABOLIC PANEL(Performed 03/10/2024) * MAGNESIUM BLOOD(Performed 03/09/2024) * COMPREHENSIVE METABOLIC PANEL(Performed 03/09/2024) * CBC W AUTO DIFFERENTIAL(Performed 03/09/2024) * BASIC METABOLIC PANEL (CALCIUM TOTAL)(Performed 03/08/2024) * B-TYPE NATRIURETIC PEPTIDE(Performed 03/08/2024) * CBC W AUTO DIFFERENTIAL(Performed 03/04/2024) * XR ABDOMEN KUB(Performed 03/03/2024) * COMPREHENSIVE METABOLIC PANEL(Performed 03/03/2024) * BLOOD GASES ART + COOX PANEL(Performed 02/27/2024) * XR CHEST 1VW PORTABLE(Performed 02/27/2024) * COMPREHENSIVE METABOLIC PANEL(Performed 02/27/2024) * CBC W/O DIFFERENTIAL(Performed 02/27/2024) * URINE MICROSCOPIC ONLY REFLEX TO CULTURE(Performed 02/26/2024) * URINALYSIS REFLEX MICROSCOPIC REFLEX CULTURE(Performed 02/26/2024) * CULTURE URINE(Performed 02/26/2024) * COMPREHENSIVE METABOLIC PANEL(Performed 02/25/2024) * CBC W AUTO DIFFERENTIAL(Performed 02/25/2024) * XR CHEST 1VW PORTABLE(Performed 02/25/2024) * BLOOD GASES ART + COOX PANEL(Performed 02/24/2024) * CARDIAC RHYTHM STRIP ORDER(Performed 02/18/2024) * XR CHEST 1VW PORTABLE(Performed 02/16/2024) * PREALBUMIN(Performed 02/16/2024) * TSH(Performed 02/16/2024) * COMPREHENSIVE METABOLIC PANEL(Performed 02/16/2024) * CBC W AUTO DIFFERENTIAL(Performed 02/16/2024) * GLUCOSE - POINT OF CARE(Performed 02/15/2024) * GLUCOSE - POINT OF CARE(Performed 02/15/2024) * GLUCOSE - POINT OF CARE(Performed 02/15/2024) * CBC W AUTO DIFFERENTIAL(Performed 02/15/2024) * BASIC METABOLIC PANEL (CALCIUM TOTAL)(Performed 02/15/2024) * PHOSPHORUS BLOOD(Performed 02/15/2024) * MAGNESIUM BLOOD(Performed 02/15/2024) * GLUCOSE - POINT OF CARE(Performed 02/14/2024) * GLUCOSE - POINT OF CARE(Performed 02/14/2024) * RENAL FUNCTION PANEL(Performed 02/14/2024) * GLUCOSE - POINT OF CARE(Performed 02/14/2024) * GLUCOSE - POINT OF CARE(Performed 02/14/2024) * CBC W AUTO DIFFERENTIAL(Performed 02/14/2024) * BASIC METABOLIC PANEL (CALCIUM TOTAL)(Performed 02/14/2024) * PHOSPHORUS BLOOD(Performed 02/14/2024) * MAGNESIUM BLOOD(Performed 02/14/2024) * GLUCOSE - POINT OF CARE(Performed 02/13/2024) * GLUCOSE - POINT OF CARE(Performed 02/13/2024) * GLUCOSE - POINT OF CARE(Performed 02/13/2024) * GLUCOSE - POINT OF CARE(Performed 02/13/2024) * SLIDE SCAN HEMATOLOGY(Performed 02/13/2024) * CBC W AUTO DIFFERENTIAL(Performed 02/13/2024) * BASIC METABOLIC PANEL (CALCIUM TOTAL)(Performed 02/13/2024) * PHOSPHORUS BLOOD(Performed 02/13/2024) * MAGNESIUM BLOOD(Performed 02/13/2024) * GLUCOSE - POINT OF CARE(Performed 02/12/2024) * GLUCOSE - POINT OF CARE(Performed 02/12/2024) * GLUCOSE - POINT OF CARE(Performed 02/12/2024) * CBC W AUTO DIFFERENTIAL(Performed 02/12/2024) * BASIC METABOLIC PANEL (CALCIUM TOTAL)(Performed 02/12/2024) * PHOSPHORUS BLOOD(Performed 02/12/2024) * MAGNESIUM BLOOD(Performed 02/12/2024) * GLUCOSE - POINT OF CARE(Performed 02/12/2024) * GLUCOSE - POINT OF CARE(Performed 02/11/2024) * GLUCOSE - POINT OF CARE(Performed 02/11/2024) * GLUCOSE - POINT OF CARE(Performed 02/11/2024) * CBC W AUTO DIFFERENTIAL(Performed 02/11/2024) * BASIC METABOLIC PANEL (CALCIUM TOTAL)(Performed 02/11/2024) * PHOSPHORUS BLOOD(Performed 02/11/2024) * MAGNESIUM BLOOD(Performed 02/11/2024) * GLUCOSE - POINT OF CARE(Performed 02/11/2024) * GLUCOSE - POINT OF CARE(Performed 02/10/2024) * GLUCOSE - POINT OF CARE(Performed 02/10/2024) * XR CHEST 1VW PORTABLE(Performed 02/10/2024) Performed for Tracheostomy in place (HCC) * XR CHEST 1VW PORTABLE(Performed 02/10/2024) Performed for Hypoxia, Staphylococcus aureus infection * GLUCOSE - POINT OF CARE(Performed 02/10/2024) * CBC W AUTO DIFFERENTIAL(Performed 02/10/2024) * BASIC METABOLIC PANEL (CALCIUM TOTAL)(Performed 02/10/2024) * PHOSPHORUS BLOOD(Performed 02/10/2024) * MAGNESIUM BLOOD(Performed 02/10/2024) * GLUCOSE - POINT OF CARE(Performed 02/10/2024) * GLUCOSE - POINT OF CARE(Performed 02/09/2024) * GLUCOSE - POINT OF CARE(Performed 02/09/2024) * CBC W AUTO DIFFERENTIAL(Performed 02/09/2024) * GLUCOSE - POINT OF CARE(Performed 02/09/2024) * MAGNESIUM BLOOD(Performed 02/09/2024) * BASIC METABOLIC PANEL (CALCIUM TOTAL)(Performed 02/09/2024) * MAGNESIUM BLOOD(Performed 02/09/2024) * PHOSPHORUS BLOOD(Performed 02/09/2024) * GLUCOSE - POINT OF CARE(Performed 02/09/2024) * GLUCOSE - POINT OF CARE(Performed 02/08/2024) * AMMONIA(Performed 02/08/2024) * BASIC METABOLIC PANEL (CALCIUM TOTAL)(Performed 02/08/2024) * MAGNESIUM BLOOD(Performed 02/08/2024) * PHOSPHORUS BLOOD(Performed 02/08/2024) * GLUCOSE - POINT OF CARE(Performed 02/08/2024) * GLUCOSE - POINT OF CARE(Performed 02/08/2024) * HEPATIC FUNCTION PANEL(Performed 02/08/2024) * TSH REFLEX FREE T4(Performed 02/08/2024) * SLIDE SCAN HEMATOLOGY(Performed 02/08/2024) * CBC W AUTO DIFFERENTIAL(Performed 02/08/2024) * BASIC METABOLIC PANEL (CALCIUM TOTAL)(Performed 02/08/2024) * BASIC METABOLIC PANEL (CALCIUM TOTAL)(Performed 02/08/2024) * MAGNESIUM BLOOD(Performed 02/08/2024) * PHOSPHORUS BLOOD(Performed 02/08/2024) * GLUCOSE - POINT OF CARE(Performed 02/08/2024) * GLUCOSE - POINT OF CARE(Performed 02/07/2024) * BASIC METABOLIC PANEL (CALCIUM TOTAL)(Performed 02/07/2024) * MRI BRAIN WO CONTRAST(Performed 02/07/2024) Performed for Altered mental status, unspecified altered mental status type * PHOSPHORUS BLOOD(Performed 02/07/2024) * GLUCOSE - POINT OF CARE(Performed 02/07/2024) * GLUCOSE - POINT OF CARE(Performed 02/07/2024) * SLIDE SCAN HEMATOLOGY(Performed 02/07/2024) * CBC W AUTO DIFFERENTIAL(Performed 02/07/2024) * MAGNESIUM BLOOD(Performed 02/07/2024) * BASIC METABOLIC PANEL (CALCIUM TOTAL)(Performed 02/07/2024) * GLUCOSE - POINT OF CARE(Performed 02/07/2024) * MAGNESIUM BLOOD(Performed 02/07/2024) * PHOSPHORUS BLOOD(Performed 02/07/2024) * GLUCOSE - POINT OF CARE(Performed 02/06/2024) * BASIC METABOLIC PANEL (CALCIUM TOTAL)(Performed 02/06/2024) * URINE MICROSCOPIC ONLY(Performed 02/06/2024) * URINALYSIS REFLEX TO MICROSCOPIC NO CULTURE(Performed 02/06/2024) * GLUCOSE - POINT OF CARE(Performed 02/06/2024) * MRSA DNA PCR(Performed 02/06/2024) * CULTURE SPUTUM+GRAM STAIN(Performed 02/06/2024) * CULTURE BLOOD(Performed 02/06/2024) * MAGNESIUM BLOOD(Performed 02/06/2024) * PHOSPHORUS BLOOD(Performed 02/06/2024) * CULTURE BLOOD(Performed 02/06/2024) * GLUCOSE - POINT OF CARE(Performed 02/06/2024) * SLIDE SCAN HEMATOLOGY(Performed 02/06/2024) * CBC W AUTO DIFFERENTIAL(Performed 02/06/2024) * BASIC METABOLIC PANEL (CALCIUM TOTAL)(Performed 02/06/2024) * MAGNESIUM BLOOD(Performed 02/06/2024) * PHOSPHORUS BLOOD(Performed 02/06/2024) * GLUCOSE - POINT OF CARE(Performed 02/05/2024) * GLUCOSE - POINT OF CARE(Performed 02/05/2024) * GLUCOSE - POINT OF CARE(Performed 02/05/2024) * BASIC METABOLIC PANEL (CALCIUM TOTAL)(Performed 02/05/2024) * GLUCOSE - POINT OF CARE(Performed 02/05/2024) * MAGNESIUM BLOOD(Performed 02/05/2024) * PHOSPHORUS BLOOD(Performed 02/05/2024) * GLUCOSE - POINT OF CARE(Performed 02/05/2024) * XR CHEST 1VW PORTABLE(Performed 02/05/2024) Performed for Tracheostomy in place (HCC) * GLUCOSE - POINT OF CARE(Performed 02/05/2024) * BASIC METABOLIC PANEL (CALCIUM TOTAL)(Performed 02/05/2024) * CBC W AUTO DIFFERENTIAL(Performed 02/05/2024) * MAGNESIUM BLOOD(Performed 02/04/2024) * PHOSPHORUS BLOOD(Performed 02/04/2024) * GLUCOSE - POINT OF CARE(Performed 02/04/2024) * BASIC METABOLIC PANEL (CALCIUM TOTAL)(Performed 02/04/2024) * GLUCOSE - POINT OF CARE(Performed 02/04/2024) * MAGNESIUM BLOOD(Performed 02/04/2024) * PHOSPHORUS BLOOD(Performed 02/04/2024) * GLUCOSE - POINT OF CARE(Performed 02/04/2024) * GLUCOSE - POINT OF CARE(Performed 02/04/2024) * CBC W AUTO DIFFERENTIAL(Performed 02/04/2024) * TRIGLYCERIDES BLOOD(Performed 02/04/2024) * MAGNESIUM BLOOD(Performed 02/03/2024) * PHOSPHORUS BLOOD(Performed 02/03/2024) * BASIC METABOLIC PANEL (CALCIUM TOTAL)(Performed 02/03/2024) * GLUCOSE - POINT OF CARE(Performed 02/03/2024) * GLUCOSE - POINT OF CARE(Performed 02/03/2024) * GLUCOSE - POINT OF CARE(Performed 02/03/2024) * DIFFERENTIAL MANUAL(Performed 02/03/2024) * CBC W AUTO DIFFERENTIAL(Performed 02/03/2024) * MAGNESIUM BLOOD(Performed 02/03/2024) * PHOSPHORUS BLOOD(Performed 02/03/2024) * BASIC METABOLIC PANEL (CALCIUM TOTAL)(Performed 02/03/2024) * GLUCOSE - POINT OF CARE(Performed 02/03/2024) * MAGNESIUM BLOOD(Performed 02/02/2024) * PHOSPHORUS BLOOD(Performed 02/02/2024) * BASIC METABOLIC PANEL (CALCIUM TOTAL)(Performed 02/02/2024) * GLUCOSE - POINT OF CARE(Performed 02/02/2024) * XR CHEST POST PROCEDURE(Performed 02/02/2024) Performed for Altered mental status, unspecified altered mental status type * GLUCOSE - POINT OF CARE(Performed 02/02/2024) * BLOOD GASES ARTERIAL(Performed 02/02/2024) Performed for Hypoxia * XR ABDOMEN KUB(Performed 02/02/2024) Performed for Hypoxia * XR CHEST 1VW PORTABLE(Performed 02/02/2024) Performed for Hypoxia * GLUCOSE - POINT OF CARE(Performed 02/02/2024) * MAGNESIUM BLOOD(Performed 02/02/2024) * PHOSPHORUS BLOOD(Performed 02/02/2024) * BASIC METABOLIC PANEL (CALCIUM TOTAL)(Performed 02/02/2024) * GLUCOSE - POINT OF CARE(Performed 02/02/2024) * GLUCOSE - POINT OF CARE(Performed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 AM [facility] Blood BLOOD SPECIMEN / Unknown Lab Venipuncture / Unknown 06/04/2024 11:30 AM CDT 06/04/2024 11:51 AM CDT Jason Coppola MD LAB - HEMATOLOGY ORD ERABLES [facility] [address] [place] [id number], [facility] [phone] * (ABNORMAL) BASIC METABOLIC PANEL (CALCIUM TOTAL) (06/04/2024 11:30 AM CDT) Only the most recent of54 resultswithin the time period is included. Pathologist [facility] BUN 18 7 - 26 mg/dL 06/04/2024 12:27 PM [facility] Creatinine 0.78 0.71 - 1.16 mg/dL 06/04/2024 12:27 PM [facility] Sodium 135(L) 136 - 145 mmol/L 06/04/2024 12:27 PM [facility] Potassium 4.1 3.5 - 4.5 mmol/L 06/04/2024 12:27 PM [facility] Chloride 102 98 - 107 mmol/L 06/04/2024 12:27 PM [facility] CO2 25 22 - 29 mmol/L 06/04/2024 12:27 PM [facility] Glucose 138(H) 70 - 115 mg/dL 06/04/2024 12:27 PM [facility] Calcium 9.6 8.4 - 10.2 mg/dL 06/04/2024 12:27 PM [facility] Anion Gap 8 6 - 16 06/04/2024 12:27 PM [facility] BUN/Creatinine Ratio 23 7 - 23 06/04/2024 12:27 PM [facility] Osmolality Calculated 284 275 - 295 mOsm/kg 06/04/2024 12:27 PM [facility] eGFR by CKD-EPI >90 >=90 mL/min/1.7 3 m2 06/04/2024 12:27 PM [facility] Blood BLOOD SPECIMEN / Unknown Lab Venipuncture / Unknown 06/04/2024 11:30 AM CDT 06/04/2024 11:51 AM T Jason Coppola MD LAB - CHEMISTRY ORDE DUNG [facility] Organization Address City/State/ZIP Co de Phone Number [facility] [address] [place] [address], [facility] [phone] * PHOSPHORUS BLOOD (06/04/2024 11:30 AM T) Only the most recent of48 resultswithin the time period is included. Phosphorus 4.3 2.8 - 5.1 mg/dL 06/04/2024 12:27 PM [facility] Blood BLOOD SPECIMEN / Unknown Lab Venipuncture / Unknown 06/04/2024 11:30 AM CDT 06/04/2024 11:51 AM CDT Jason Coppola MD LAB - CHEMISTRY CHRISTIAN RAZO [address] [address], [facility] [phone] * MAGNESIUM BLOOD (06/04/2024 11:30 AM CDT) Only the most recent of54 resultswithin the time period is included. Magnesium 1.6 1.6 - 2.6 mg/dL 06/04/2024 12:27 PM CDT [facility] Blood BLOOD SPECIMEN / Unknown Lab Venipuncture / Unknown 06/04/2024 11:30 AM CDT 06/04/2024 11:51 AM CDT Jason Coppola MD LAB - CHEMISTRY CHRISTIAN RAZO Performing Organization Address City/[facility]/ZIP Co de Phone Number [address] [address], [facility] [phone] * ECHO COMPLETE W CONTRAST W BUBBLE STUDY (06/03/2024 3:15 PM CDT) Only the most recent of2 resultswithin the time period is included. LA vol index 0.013 l/m? ? ? [facility] CV FUJI PACS LA vol BP 31.411 ml SSM CV FUJ I PACS Sinus of Valsalva 4.192 cm [facility] CV FUJI PACS Myocardial strain charge 2 unitless [facility] CV FUJI PACS IVSd 2D 1.086 cm SSM CV FUJ I PACS LVIDd 4.721 cm SSM CV FUJ I PACS LVIDs 2.741 cm [facility] CV FUJ I PACS LVOT diam 2.122 cm SSM CV FUJ I PACS LVPWd 1.352 cm SSM CV FUJ I PACS LV biplane EF 66.142 % [facility] CV FUJI PACS LV A2C EF 73.827 % SSM CV FUJ I PACS LV A4C EF 55.987 % SSM CV FUJ I PACS LV EDV A2C 138.48 ml SSM CV FU JI PACS LV EDV A4C 145.005 ml SSM CV FU JI PACS LV ESV A2C 36.244 ml SSM CV FU JI PACS LV ESV A4C 63.821 ml SSM CV FU JI PACS LVOT pk richard 94.742 cm/s SSM CV F UJI PACS LVOT VTI 12.263 cm SSM CV [facility] I PACS RVIDd 3.519 cm SSM CV [facility] I PACS RVOT diam Doppler 1.833 cm [facility] RVOT pk richard 84.812 cm/s SSM CV F UJI PACS RVOT VTI 12.156 cm SSM CV [facility] I PACS LA size 3.649 cm SSM CV [facility] I PACS AV mn grad 4.064 mmHg SSM CV FU JI PACS AV pk richard 148.818 cm/s SSM CV [facility] I PACS AV VTI 19.035 cm SSM CV [facility] I PACS MV A pk richard 68.508 cm/s SSM CV F UJI PACS MV E pk richard 44.33 cm/s SSM CV F UJI PACS MV E' lateral richard 9.638 cm/s [facility] MV mn grad 1.466 mmHg SSM CV FU JI PACS MV VTI 21.081 cm SSM CV [facility] I PACS PV pk richard 96.329 cm/s SSM CV [facility] I PACS PV VTI 12.497 cm SSM CV [facility] I PACS TAPSE 1.413 cm SSM CV [facility] I PACS Ascending aorta 3.385 cm [facility] IVC Diam Expiration 0.57 cm [facility] Anatomical Region Laterality Modality Ultrasound 06/03/2024 1:14 PM CDT Narrative 06/03/2024 4:03 PM CDT Summary ??* Left ventricle is normal in size, with normal systolic function, EF 66%, wall motion is abnormal (see diagram), and diastolic function is consistent with grade I diastolic dysfunction and normal left atrial ??filling pressure. ??* There is mild concentric remodeling of the left ventricle. ??* Right ventricle is normal in size with reduced systolic function. ??* Agitated saline contrast study at rest and with Valsalva is negative for a shunt. ??* No hemodynamically significant valve disease. Patient Info Name: ? Raza ?? George Age: ? 63 years : ? 1960 Gender: ? Male Accession #: ? [id number] Ht: ? 64 in Wt: ? 284 lb BSA: ? 2.49 m2 HR: ? 82 bpm BP: ? 125 / ? 80 mmHg Exam Date: ? 06/03/2024 1:14 PM Patient Status: ? I/P Study Site: ? [facility] Primary Location: ? [facility] Info Technical Quality: ? Adequate Exam Type: ? ECHO COMPLETE W CONTRAST W BUBBLE STUDY Indications ?R55 - Syncope, ??unspecified syncope type Procedure(s) ??* A complete 2D, color Doppler, spectral Doppler and M-Mode transthoracic echocardiogram was performed. Contrast/Agitated Saline Contrast / Saline: ? Definity Amount: ? 0.50 ml Administered By: ? Isabella Pouncil Reaction to Contrast: ? no Contrast / Saline: ? Agitated Saline Amount: ? 20.00 ml Administered By: ? Isabella Pouncil Reaction to Contrast: ? no Staff Referring Physician: ? Perfecto Hatch Ordering Provider: ? Perfecto Hatch Attending Physician: ? Perfecto Hatch Cell Pourer: ? Isabella Pouncil Left Ventricle ??Left ventricular systolic function is normal with an estimated ejection fraction of 66% by biplane method of disks. The left ventricle is normal in size. There is mild concentric remodeling of the left ventricle. Left ventricular segmental wall motion is abnormal. ??See diagram. ??The inferolateral wall is hypokinetic. The left ventricular diastolic function is consistent with grade I diastolic dysfunction and normal left atrial ??filling pressure. Right Ventricle ??The right ventricle is normal in size. Right ventricular systolic function is reduced. Left Atrium ??The left atrium is normal in size with a left atrial volume index of 13 ml/m2 by BP MOD. Right Atrium ??The right atrium is normal in size. Atrial Septum ??Intact interatrial septum visualized by 2D and color Doppler imaging. Agitated saline contrast study at rest and with Valsalva is negative for a shunt. Aortic Valve ??The aortic valve is trileaflet. There is no aortic valve regurgitation. There is no aortic valve stenosis with a peak velocity of 1.5 m/s, mean gradient of 4 mmHg, and aortic valve area of 2.3 cm2. Pulmonic Valve ??The pulmonic valve is not well visualized. There is no pulmonic valve stenosis. There is no pulmonic regurgitation. Mitral Valve ??The mitral valve is normal. There is no mitral valve stenosis. There is no significant mitral valve regurgitation. Tricuspid Valve ??The tricuspid valve is normal. There is no significant tricuspid valve regurgitation. No stenosis. Unable to assess pulmonary pressures due to a lack of tricuspid and pulmonic regurgitation. Inferior Vena Cava ??The inferior vena cava is normal in size (< 2.1 cm). There is > 50% collapse of the IVC upon inspiration with an estimated right atrial pressure of 3 mmHg. Pericardium/Pleural ??There is no pericardial effusion. Aorta ??The aortic root at the sinus of Valsalva is mildly dilated measuring 4.2 cm with an index of 1.7 cm/m2. The ascending aorta is normal in size measuring 3.4 cm with an index of 1.4 cm/m2. Wall Motion Scoring Index: ? 1.12 Measurements Left Ventricular Outflow Tract Name ? Value ?Normal LVOT 2D LVOT Diameter ? 2.1 cm ? LVOT Area ?3.5 cm2 ? LVOT Doppler LVOT Peak Velocity ? 0.9 m/s ? LVOT Peak Gradient ?4 mmHg ? LVOT Mean Velocity ?51.97 cm/s ? LVOT Mean Gradient ?1 mmHg ? LVOT VTI ? 12.3 cm ? LVOT VTI/AV VTI Ratio ?0.6 ? LVOT Stroke Volume ? 43 ml ? LVOT Stroke Volume Index ?17 ml/m2 ? 35-58 LVOT CO ?3.5 l/min ? LVOT CI ? 1.4 l/min/m2 Pulmonic Valve Name ? Value ?Normal PV 2D RVOT Diameter (2D) ?1.8 cm ? 1.7-2.7 RVOT Doppler RVOT Peak Velocity ? 0.8 m/s ? RVOT Peak Gradient ?3 mmHg ? RVOT Mean Gradient ?1 mmHg ? PV Doppler PV Peak Velocity ? 1.0 m/s ? PV Peak Gradient ?4 mmHg ? PV Mean Gradient ?2 mmHg ? PV Area (Cont Eq VTI) ? 2.56 cm2 ? PV Area Index (Cont Eq VTI) ? 1.03 cm2/m2 ? PV Area (Cont Eq Richard) ?2.3 cm2 ? PV Area Index (Cont Eq Richard) ? 0.93 cm2/m2 Mitral Valve Name ? Value ?Normal MV Doppler MV Peak Gradient ?3 mmHg ? MV Mean Gradient ?1 mmHg ? MV DI (VTI) ? 1.72 ? MV PHT ?142 ms ? MV Area (PHT) ? 1.55 cm2 ? 4.00-5.00 MV Area (Cont Eq VTI) ? 2.06 cm2 ? MV Diastolic Function MV E Peak Velocity ? 0.4 m/sec ? MV A Peak Velocity ? 0.7 m/sec ? MV E/A ? 0.6 ? MV Decel Time (PW) ?253 ms ? MV A Wave Duration ?118 ms ? MV Annular TDI MV Septal e' Velocity ? 4 cm/s ? >=8 MV E/e' (Septal) ?10 ? <=8 MV Lateral e' Velocity ? 10 cm/s ?>=10 MV E/e' (Lateral) ?5 ? <=8 MV e' Average ? 7 cm/s ? MV E/e' (Average) ?7 Tricuspid Valve Name ? Value ?Normal Estimated PAP/RSVP RA Pressure ? 3 mmHg ? <=5 TV Annular TDI TV Lateral Keysha s' Velocity ?7 cm/s ? 10-19 Aorta Name ? Value ?Normal Ascending Aorta Sinus of Valsalva Diameter ?4.2 cm ? 2.8-4.0 Sinus of Valsalva Index ?1.7 cm/m2 ? 1.3-2.1 Asc Ao Diameter ? 3.4 cm ? 2.2-3.8 Asc Ao Diameter Index ?1.4 cm/m2 ? 1.1-1.9 Septae/Shunt/Generic Name ? Value ?Normal Qp/Qs Qp/Qs ?0.7 Venous Name ? Value ?Normal IVC/SVC IVC Diameter ?0.6 cm ? <=2.1 Aortic Valve Name ? Value ?Normal AV 2D/MM AV Cusp Sep (MM) ?2.5 cm ? AV Doppler AV Peak Velocity ?1.49 m/s ? AV Peak Gradient ?9 mmHg ? AV Mean Gradient ?4 mmHg ? AV VTI ? 19 cm ? AV Area (Cont Eq VTI) ? 2.28 cm2 ?>=2.00 AV Area (Cont Eq Richard) ? 2.25 cm2 ? AV DI (Richard) ? 0.64 ? AV Regurgitation 2D LVOT Area ? 3.53 cm2 Ventricles Name ? Value ?Normal LV Dimensions 2D/MM IVS Diastolic Thickness (2D) ?1.1 cm ? 0.6-1.0 LVID Diastole (2D) ?4.7 cm ? 4.2-5.8 LVPW Diastolic Thickness (2D) ?1.4 cm ? 0.6-1.0 IVS Systolic Thickness (2D) ? 1.3 cm ? LVID Systole (2D) ? 2.7 cm ? 2.5-4.0 LVPW Systolic Thickness (2D) ?1.7 cm ? LV Mass (2D Cubed) ? 157 g ?88-224 LV Mass Index (2D Cubed) ? 63 g/m2 ?49-115 Relative Wall Thickness (2D) ?0.57 ?<=0.42 LV Fractional Shortening/Ejection Fraction 2D/MM LV Fractional Shortening (2D) ?42 % ? 25-43 LV EF (2D Teicholz) ? 73 % ? 52-72 LV Diastolic Volume (4C MOD) ?145 ml ? LV EF (4C MOD) ?56 % ? LV Diastolic Volume (2C MOD) ?138 ml ? LV EF (2C MOD) ?74 % ? LV Diastolic Volume (BP MOD) ?144 ml ?62-150 LV Diastolic Volume Index (BP MOD) ?58 ml/m2 ? 34-74 LV Systolic Volume (BP MOD) ?49 ml ? 21-61 LV Systolic Volume Index (BP MOD) ?20 ml/m2 ? 11-31 LV EF (BP MOD) ?66 % ? 52-72 LV Diastolic Length (4C) ?8.9 cm ? LV Systolic Length (4C) ? 6.7 cm ? LV Stroke Volume (4C MOD) ?81 ml ? RV Dimensions 2D/MM RVID Diastole (2D) ?3.5 cm ? 2.5-3.5 RVID Systole (2D) ? 2.0 cm ? TAPSE ? 1.4 cm ? >=1.7 Atria Name ? Value ?Normal LA Dimensions LA Dimension (2D) ? 3.6 cm ? 3.0-4.1 LA Dimen Index (2D) ?1.5 cm/m2 ? LA Volume (BP MOD) ? 31 ml ? LA Volume Index (BP MOD) ?13 ml/m2 ? 16-34 Report Signatures Finalized by Lulu ??Timo on 06/03/2024 04:03 PM Procedure Note Lulu Greenwood MD - 06/03/2024 Summary * Left ventricle is normal in size, with normal systolic function, EF66%, wall motion is abnormal (see diagram), and diastolic function isconsistent with grade I diastolic dysfunction and normal left atrial fillingpressure. * There is mild concentric remodeling of the left ventricle. * Right ventricle is normal in size with reduced systolic function. * Agitated saline contrast study at rest and with Valsalva is negativefor a shunt. * No hemodynamically significant valve disease. Patient Info Name: Raza Vazquez Age: 63 years : 1960 Gender: Male Ht: 64 in Wt: 284 lb BSA: 2.49 m2 HR: 82 bpm BP: 125 / 80 mmHg Exam Date: 06/03/2024 1:14 PM Patient Status: I/P Study Site: [facility] Primary Location: [facility] Info Technical Quality: Adequate Exam Type: ECHO COMPLETE W CONTRAST W BUBBLE STUDY Indications R55 - Syncope, unspecified syncope type Procedure(s) * A complete 2D, color Doppler, spectral Doppler and M-Modetransthoracic echocardiogram was performed. Contrast/Agitated Saline Contrast / Saline: Definity Amount: 0.50 ml Administered By: Isabellatete Cisneros Reaction to Contrast: no Contrast / Saline: Agitated Saline Amount: 20.00 ml Administered By: Isabella Pouncil Reaction to Contrast: no Staff Referring Physician: Perfecto Hatch Ordering Provider: Perfecto Hatch Attending Physician: Perfecto Hatch Cell Pourer: Isabella Cisneros Left Ventricle Left ventricular systolic function is normal with an estimatedejection fraction of 66% by biplane method of disks. The left ventricle is normalin size. There is mild concentric remodeling of the left ventricle. Left ventricular segmental wall motion is abnormal. See diagram. The inferolateral wall is hypokinetic. The left ventricular diastolic functionis consistent with grade I diastolic dysfunction and normal left atrialfilling pressure. Right Ventricle The right ventricle is normal in size. Right ventricular systolicfunction is reduced. Left Atrium The left atrium is normal in size with a left atrial volume index of13 ml/m2 by BP MOD. Right Atrium The right atrium is normal in size. Atrial Septum Intact interatrial septum visualized by 2D and color Doppler imaging. Agitated saline contrast study at rest and with Valsalva is negative fora shunt. Aortic Valve The aortic valve is trileaflet. There is no aortic valveregurgitation. There is no aortic valve stenosis with a peak velocity of 1.5 m/s, mean gradient of 4 mmHg, and aortic valve area of 2.3 cm2. Pulmonic Valve The pulmonic valve is not well visualized. There is no pulmonic valve stenosis. There is no pulmonic regurgitation. Mitral Valve The mitral valve is normal. There is no mitral valve stenosis. There isno significant mitral valve regurgitation. Tricuspid Valve The tricuspid valve is normal. There is no significant tricuspid valve regurgitation. No stenosis. Unable to assess pulmonary pressures due to alack of tricuspid and pulmonic regurgitation. Inferior Vena Cava The inferior vena cava is normal in size (< 2.1 cm). There is > 50%collapse of the IVC upon inspiration with an estimated right atrial pressure of 3mmHg. Pericardium/Pleural There is no pericardial effusion. Aorta The aortic root at the sinus of Valsalva is mildly dilated measuring 4.2cm with an index of 1.7 cm/m2. The ascending aorta is normal in sizemeasuring 3.4 cm with an index of 1.4 cm/m2. Wall Motion Scoring Index: 1.12 Measurements Left Ventricular Outflow Tract Name Value Normal LVOT 2D LVOT Diameter 2.1 cm LVOT Area 3.5 cm2 LVOT Doppler LVOT Peak Velocity 0.9 m/s LVOT Peak Gradient 4 mmHg LVOT Mean Velocity 51.97 cm/s LVOT Mean Gradient 1 mmHg LVOT VTI 12.3 cm LVOT VTI/AV VTI Ratio 0.6 LVOT Stroke Volume 43 ml LVOT Stroke Volume Index 17 ml/m2 35-58 LVOT CO 3.5 l/min LVOT CI 1.4 l/min/m2 Pulmonic Valve Name Value Normal PV 2D RVOT Diameter (2D) 1.8 cm 1.7-2.7 RVOT Doppler RVOT Peak Velocity 0.8 m/s RVOT Peak Gradient 3 mmHg RVOT Mean Gradient 1 mmHg PV Doppler PV Peak Velocity 1.0 m/s PV Peak Gradient 4 mmHg PV Mean Gradient 2 mmHg PV Area (Cont Eq VTI) 2.56 cm2 PV Area Index (Cont Eq VTI) 1.03 cm2/m2 PV Area (Cont Eq Richard) 2.3 cm2 PV Area Index (Cont Eq Richard) 0.93 cm2/m2 Mitral Valve Name Value Normal MV Doppler MV Peak Gradient 3 mmHg MV Mean Gradient 1 mmHg MV DI (VTI) 1.72 MV PHT 142 ms MV Area (PHT) 1.55 cm2 4.00-5.00 MV Area (Cont Eq VTI) 2.06 cm2 MV Diastolic Function MV E Peak Velocity 0.4 m/sec MV A Peak Velocity 0.7 m/sec MV E/A 0.6 MV Decel Time (PW) 253 ms MV A Wave Duration 118 ms MV Annular TDI MV Septal e' Velocity 4 cm/s >=8 MV E/e' (Septal) 10 <=8 MV Lateral e' Velocity 10 cm/s >=10 MV E/e' (Lateral) 5 <=8 MV e' Average 7 cm/s MV E/e' (Average) 7 Tricuspid Valve Name Value Normal Estimated PAP/RSVP RA Pressure 3 mmHg <=5 TV Annular TDI TV Lateral Keysha s' Velocity 7 cm/s 10-19 Aorta Name Value Normal Ascending Aorta Sinus of Valsalva Diameter 4.2 cm 2.8-4.0 Sinus of Valsalva Index 1.7 cm/m2 1.3-2.1 Asc Ao Diameter 3.4 cm 2.2-3.8 Asc Ao Diameter Index 1.4 cm/m2 1.1-1.9 Septae/Shunt/Generic Name Value Normal Qp/Qs Qp/Qs 0.7 Venous Name Value Normal IVC/SVC IVC Diameter 0.6 cm <=2.1 Aortic Valve Name Value Normal AV 2D/MM AV Cusp Sep (MM) 2.5 cm AV Doppler AV Peak Velocity 1.49 m/s AV Peak Gradient 9 mmHg AV Mean Gradient 4 mmHg AV VTI 19 cm AV Area (Cont Eq VTI) 2.28 cm2 >=2.00 AV Area (Cont Eq Richard) 2.25 cm2 AV DI (Richard) 0.64 AV Regurgitation 2D LVOT Area 3.53 cm2 Ventricles Name Value Normal LV Dimensions 2D/MM IVS Diastolic Thickness (2D) 1.1 cm 0.6-1.0 LVID Diastole (2D) 4.7 cm 4.2-5.8 LVPW Diastolic Thickness (2D) 1.4 cm 0.6-1.0 IVS Systolic Thickness (2D) 1.3 cm LVID Systole (2D) 2.7 cm 2.5-4.0 LVPW Systolic Thickness (2D) 1.7 cm LV Mass (2D Cubed) 157 g 88-224 LV Mass Index (2D Cubed) 63 g/m2 49-115 Relative Wall Thickness (2D) 0.57 <=0.42 LV Fractional Shortening/Ejection Fraction 2D/MM LV Fractional Shortening (2D) 42 % 25-43 LV EF (2D Teicholz) 73 % 52-72 LV Diastolic Volume (4C MOD) 145 ml LV EF (4C MOD) 56 % LV Diastolic Volume (2C MOD) 138 ml LV EF (2C MOD) 74 % LV Diastolic Volume (BP MOD) 144 ml 62-150 LV Diastolic Volume Index (BP MOD) 58 ml/m2 34-74 LV Systolic Volume (BP MOD) 49 ml 21-61 LV Systolic Volume Index (BP MOD) 20 ml/m2 11-31 LV EF (BP MOD) 66 % 52-72 LV Diastolic Length (4C) 8.9 cm LV Systolic Length (4C) 6.7 cm LV Stroke Volume (4C MOD) 81 ml RV Dimensions 2D/MM RVID Diastole (2D) 3.5 cm 2.5-3.5 RVID Systole (2D) 2.0 cm TAPSE 1.4 cm >=1.7 Atria Name Value Normal LA Dimensions LA Dimension (2D) 3.6 cm 3.0-4.1 LA Dimen Index (2D) 1.5 cm/m2 LA Volume (BP MOD) 31 ml LA Volume Index (BP MOD) 13 ml/m2 16-34 Report Signatures Finalized by Lulu Greenwood on 06/03/2024 04:03 PM Perfecto Hatch [employer] INSPECTOR-[employer]PENTER ASSEMBLER ECHO CUPID * FL SWALLOWING FUNCTION STUDY (06/03/2024 2:00 PM CDT) Only the most recent of2 resultswithin the time period is included. Anatomical Region Laterality Modality Chest Radiographic Love ging 06/03/2024 4:34 PM CDT Impressions 06/03/2024 4:35 PM CDT IMPRESSION: Modified barium swallow fluoroscopy as described. Please see detailed report from speech pathology staff. > Interpreting Provider: Natalie Edmond MD on 06/03/2024 4:35 PM Narrative 06/03/2024 4:35 PM CDT PROCEDURE: ??FL SWALLOWING FUNCTION STUDY DATE/TIME OF EXAM: ??06/03/2024 3:41 PM CLINICAL INFORMATION: None relevant/not provided if blank. Indication: I63.9: Cerebrovascular accident (CVA), unspecified mechanism (HCC) R13.10: Dysphagia, unspecified type Additional History: TECHNIQUE: Modified barium swallow fluoroscopy performed in conjunction with speech pathology staff. The speech pathologist administered varying thickness barium liquids and solids under direct Cine fluoroscopy. FLUOROSCOPY DOSE: ??3.09 mGy Reference air kerma (ka,r). Procedure Note Natalie Edmond MD - 06/03/2024 PROCEDURE: FL SWALLOWING FUNCTION STUDY DATE/TIME OF EXAM: 06/03/2024 3:41 PM CLINICAL INFORMATION: None relevant/not provided if blank. Indication: I63.9: Cerebrovascular accident (CVA), unspecified mechanism (HCC) R13.10: Dysphagia, unspecified type Additional History: TECHNIQUE: Modified barium swallow fluoroscopy performed in conjunction with speech pathology staff. The speech pathologist administered varying thickness barium liquids and solids under direct Cine fluoroscopy. FLUOROSCOPY DOSE: 3.09 mGy Reference air kerma (ka,r). IMPRESSION: Modified barium swallow fluoroscopy as described. Please see detailed report from speech pathology staff. > Interpreting Provider: Natalie Edmond MD on 06/03/2024 4:35 PM Farhat Enamorado MD FLUOROSCOPY ORDERAB LES * TSH REFLEX FREE T4 (05/30/2024 4:32 AM CDT) Only the most recent of3 resultswithin the time period is included. Pathologist [facility] TSH 2.381 0.350 - 4.940 uIU/mL 05/30/2024 11:01 AM CDT [facility] Blood BLOOD SPECIMEN / Unknown Lab Venipuncture / Unknown 05/30/2024 4:32 AM CDT 05/30/2024 5:01 AM CDT Jason Coppola MD LAB - CHEMISTRY CHRISTIAN RAZO [facility] Organization Address City/State/ZIP Co de Phone Number [address] [address], [facility] [phone] * EKG 12-LEAD (05/29/2024 8:41 AM CDT) Only the most recent of8 resultswithin the time period is included. Ventricular Rate 75 BPM [facility] MUSE Atrial Rate 75 BPM [facility] MUSE P-R Interval 132 ms [facility] MUSE QRS Duration ms 92 ms [facility] MUSE Q-T Interval ms 416 ms [facility] MUSE QTC Calculation (Bezet) 464 ms [facility] MUSE Calculated P [place] 45 degrees [facility] MUSE Calculated R [place] 37 degrees [facility] MUSE Calculated T [place] -90 degrees [facility] MUSE Interpretation EKG SINUS RHYTHM WITH PREMATURE VENTRICULAR COMPLEXES ST & T WAVE ABNORMALITY, CONSIDER INFERIOR ISCHEMIA ABNORMAL ECG NO PREVIOUS ECGS AVAILABLE Confirmed by PATI DAVIS, SHELLEY ([id number]) on 06/18/2024 10:09:45 PM [facility] MUSE 05/29/2024 8:41 AM CDT 06/18/2024 10:09 PM CDT Ruslan Garza MD ECG ORDERABLES [facility] MUSE * CT Angio Brain Neck Stroke (05/29/2024 1:28 AM CDT) Only the most recent of2 resultswithin the time period is included. Anatomical Region Laterality Modality Head Computed Tomogra phy 05/29/2024 1:33 AM CDT Impressions 05/29/2024 10:01 AM CDT IMPRESSION: 1.No acute intracranial hemorrhage. 2.No large arterial occlusions or significant stenoses identified in the head or neck. 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 4.Atherosclerotic disease of the extracranial and intracranial arteries as described above. 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 The report is dictated by Nasreen Gomez MD (radiology ct technologist) I, Christy Iverson MD have personally reviewed and interpreted this examination/study. > Interpreting Provider: Christy Iverson MD on 05/29/2024 10:01 AM Narrative 05/29/2024 10:01 AM CDT PROCEDURE: ??CT ANGIO BRAIN NECK STROKE, DATE/TIME OF EXAM: ??05/29/2024 1:30 AM, LOCATION ??[facility] INDICATION: I63.9: Cerebrovascular accident (CVA), unspecified mechanism (HCC) EXAMINATION: 1. Computed tomographic (CT) angiography of the head with contrast 2. CT angiography of the neck with contrast TECHNIQUE: CT of the head was performed without contrast according to standard protocol. Then CT angiography of the head and neck was obtained after the uneventful administration of 75 mL Isovue-370 intravenous contrast. Three dimensional postprocessing was performed by the technologist and sent to the workstation for review. Stenosis measurements are based on NASCET criteria. ??CT dose reduction technique was used, including Automated Exposure Control. COMPARISON: CT brain stroke dated 05/29/2024 FINDINGS: Advanced multilevel degenerative disc and joint disease in the cervical spine. Angiographic findings: Neck: There is atherosclerotic disease of the aortic arch. There is a common origin of the innominate and left common carotid arteries from the aortic arch. There is scattered atherosclerotic calcification of the innominate and subclavian arteries. There is atherosclerotic disease in the right carotid bifurcation and origin of the right internal carotid artery with less than 50 percent focal stenosis. The right common and internal carotid arteries otherwise appear patent. There is atherosclerotic disease in the left carotid bifurcation and origin of the left internal carotid artery with less than 50 percent focal stenosis. The left common and internal carotid arteries otherwise appear patent. The right vertebral artery is slightly dominant compared to the left. Other than mild focal stenosis at their origins due to atherosclerotic disease, the cervical vertebral arteries are patent. Head: There is atherosclerotic disease involving the distal internal carotid arteries with moderate focal stenosis. 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 Previously seen subtle fusiform dilatation of the right supraclinoid internal artery is less prominent on this exam.Other than a hypoplastic right A1 segment, the anterior communicating arteries are patent. The middle cerebral arteries ??are patent. The posterior cerebral arteries are patent. There is atherosclerotic disease involving the distal vertebral arteries with mild focal stenosis of the left side. Redemonstration of severe focal stenosis of the proximal basilar artery without evidence of complete occlusion. Otherwise the basilar artery and posterior cerebral arteries appear patent. There is origin of the left posterior cerebral artery. No additional aneurysms, vascular occlusions, or intracranial stenoses are identified. Procedure Note Christy Iverson MD - 05/29/2024 PROCEDURE: CT ANGIO BRAIN NECK STROKE, DATE/TIME OF EXAM: :30 AM, LOCATION [facility] INDICATION: I63.9: Cerebrovascular accident (CVA), unspecified mechanism (HCC) EXAMINATION: 1. Computed tomographic (CT) angiography of the head with contrast 2. CT angiography of the neck with contrast TECHNIQUE: CT of the head was performed without contrast according to standard protocol. Then CT angiography of the head and neck was obtained after the uneventful administration of 75 mL Isovue-370 intravenous contrast. Three dimensional postprocessing was performed by the technologist and sent to the workstation for review. Stenosismeasurements are based on NASCET criteria. CT dose reduction technique was used, including Automated Exposure Control. COMPARISON: CT brain stroke dated 05/29/2024 FINDINGS: Advanced multilevel degenerative disc and joint disease in the cervical spine. Angiographic findings: Neck: There is atherosclerotic disease of the aortic arch. There is a common origin of the innominate and left common carotid arteries from theaortic arch. There is scattered atherosclerotic calcification of the innominate and subclavian arteries. There is atherosclerotic disease in the right carotid bifurcation and origin of the right internal carotid artery with less than 50 percent focal stenosis. The right common and internalcarotid arteries otherwise appear patent. There is atherosclerotic disease inthe left carotid bifurcation and origin of the left internal carotid artery with less than 50 percent focal stenosis. The left common and internal carotid arteries otherwise appear patent. The right vertebral artery is slightly dominant compared to the left. Other than mild focal stenosisat their origins due to atherosclerotic disease, the cervical vertebral arteries are patent. Head: There is atherosclerotic disease involving the distal internal carotid arteries with moderate focal stenosis. 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 Previously seen subtle fusiform dilatation of the right supraclinoid internal artery is less prominent on this exam.Other than a hypoplastic right A1 segment, the anterior communicating arteries are patent. The middle cerebral arteries are patent. The posterior cerebral arteries are patent. There is atherosclerotic disease involving thedistal vertebral arteries with mild focal stenosis of the left side. Redemonstration of severe focal stenosis of the proximal basilar artery without evidence of complete occlusion. Otherwise the basilar artery and posterior cerebral arteries appear patent. There is origin of the left posterior cerebral artery. No additional aneurysms, vascular occlusions, or intracranial stenoses are identified. IMPRESSION: 1.No acute intracranial hemorrhage. 2.No large arterial occlusions or significant stenoses identified in the head or neck. 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 4.Atherosclerotic disease of the extracranial and intracranial arteriesas described above. 5.Redemonstration of severe stenosis of the proximal basilar arterywithout evidence of complete occlusion. The report is dictated by Nasreen Gomez MD (radiology ct technologist) I, Christy Iverson MD have personally reviewed and interpreted this examination/study. > Interpreting Provider: Christy Iverson MD on 05/29/2024 10:01 AM Madhu Rose MD CT ORDERABLES * CREATININE - POCT INTERFACED (05/29/2024 12:42 AM CDT) Only the most recent of2 resultswithin the time period is included. Creatinine POCT 0.76 0.30 - 1.30 mg/dL 05/29/2024 12:43 AM CDT [facility] Comment:CT range acceptable eGFR >90 >=90 mL/min/1.7 3 m2 05/29/2024 12:43 AM CDT [facility] Blood BLOOD SPECIMEN / Unknown 05/29/2024 12:42 AM CDT 05/29/2024 12:43 AM CDT Jason Coppola MD LAB - POINT OF CARE ORDERABLES [address] [address], [facility] [phone] * INR WHOLE BLOOD - POINT OF CARE (IP) STROKE (05/29/2024 12:41 AM CDT) INR 1.1 0.9 - 1.2 05/29/2024 12:43 AM CDT [facility] Device [id number] 05/29/2024 12:43 AM CDT [facility] Applications Trainer ID [id number] 05/29/2024 12:43 AM CDT [facility] Blood BLOOD SPECIMEN / Unknown 05/29/2024 12:41 AM CDT 05/29/2024 12:43 AM CDT Jason Coppola MD LAB - POINT OF CARE ORDERABLES [address] [address], [place] [phone] * CT Brain Stroke (05/29/2024 12:34 AM CDT) Only the most recent of2 resultswithin the time period is included. Anatomical Region Laterality Modality Head Computed Tomogra phy 05/29/2024 9:39 AM CDT Impressions 05/29/2024 9:43 AM CDT IMPRESSION: 1. No acute intracranial process. A preliminary report was provided to the clinical team by Nehemias Lino M.D of [facility] at 12:36 AM on 05/29/2024. > Interpreting Provider: Christy Iverson MD on 05/29/2024 9:43 AM Narrative 05/29/2024 9:43 AM CDT PROCEDURE: ??CT BRAIN STROKE, DATE/TIME OF EXAM: ??05/29/2024 12:40 AM, LOCATION ??[facility] INDICATION: I63.9: Cerebrovascular accident (CVA), unspecified mechanism (HCC) ADDITIONAL CLINICAL INFORMATION: Ordering Provider Reason For Exam: ??new neurological deficits. Technologist Note: Additional: TECHNIQUE: CT of the head was performed without contrast according to standard protocol. CONTRAST: COMPARISON: 05/26/2024. FINDINGS: No acute intracranial hemorrhage or intra- or extra-axial fluid collections are identified. There is mild cerebral volume loss with associated ex vacuo ventricular dilatation. Redemonstration of chronic lacunar infarcts in the right basal ganglia and left thalamus. The basal cisterns are patent. No mass effect or midline shift is seen. The mcgraw-white matter differentiation is normal. Periventricular white matter hypoattenuation is a nonspecific finding that may be indicative of chronic small vessel ischemic disease. There is atherosclerotic calcification of the carotid siphons. Other than mild paranasal sinus disease, the visualized portions of the orbits, paranasal sinuses, and mastoids appear normal. No acute calvarial fracture is identified. Procedure Note Christy Iverson MD - 05/29/2024 PROCEDURE: CT BRAIN STROKE, DATE/TIME OF EXAM: 05/29/2024 12:40 AM, LOCATION [facility] INDICATION: I63.9: Cerebrovascular accident (CVA), unspecified mechanism (HCC) ADDITIONAL CLINICAL INFORMATION: Ordering Provider Reason For Exam: new neurological deficits. Technologist Note: Additional: TECHNIQUE: CT of the head was performed without contrast according to standard protocol. CONTRAST: COMPARISON: 05/26/2024. FINDINGS: No acute intracranial hemorrhage or intra- or extra-axial fluidcollections are identified. There is mild cerebral volume loss with associated exvacuo ventricular dilatation. Redemonstration of chronic lacunar infarcts inthe right basal ganglia and left thalamus. The basal cisterns are patent. No mass effect or midline shift is seen. The mcgraw-white matterdifferentiation is normal. Periventricular white matter hypoattenuation is a nonspecific finding that may be indicative of chronic small vessel ischemic disease. There is atherosclerotic calcification of the carotid siphons. Other than mild paranasal sinus disease, the visualized portions of the orbits, paranasal sinuses, and mastoids appear normal. No acute calvarial fracture is identified. IMPRESSION: 1. No acute intracranial process. A preliminary report was provided to the clinical team by Nehemias Doll of [facility] at 12:36 AM on 05/29/2024. > Interpreting Provider: Christy Iverson MD on 05/29/2024 9:43 AM Madhu Rose MD CT ORDERABLES * CT Angio Brain And Neck (05/26/2024 5:26 PM CDT) Anatomical Region Laterality Modality Head Computed Tomogra phy 05/26/2024 7:07 PM CDT Impressions 05/27/2024 11:16 AM CDT IMPRESSION: 1.No acute intracranial hemorrhage, midline shift, or significant mass effect. 2.Atherosclerotic disease of the extracranial and intracranial arterial vessels as outlined. 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 Viz.AI was used for large vessel occlusion detection. Report dictated by Bernie Batista MD I, Shanell Morales MD have personally reviewed and interpreted this examination/study. > Interpreting Provider: Shanell Morales MD on 05/27/2024 11:16 AM Narrative 05/27/2024 11:16 AM CDT PROCEDURE: ??CT ANGIO BRAIN AND NECK, DATE/TIME OF EXAM: ??05/26/2024 5:27 PM, LOCATION ??[facility] INDICATION: I63.9: Cerebrovascular accident (CVA), unspecified mechanism (HCC) ADDITIONAL CLINICAL INFORMATION: Ordering Provider Reason For Exam: ??Vert stenosis Technologist Note: ??None Additional: ??None. EXAMINATION: 1. Computed tomographic (CT) angiography of the head without and with contrast 2. CT angiography of the neck with contrast CONTRAST: ??IOPAMIDOL 76 % IV SOLN:100 mL TECHNIQUE: CT of the head was performed without contrast according to standard protocol. Then CT angiography of the head and neck was obtained after the uneventful administration of 75 mL Isovue-370 intravenous contrast. Three dimensional postprocessing was performed by the technologist and sent to the workstation for review. Stenosis measurements are based on NASCET criteria. ??CT dose reduction technique was used, including Automated Exposure Control. COMPARISON: MRI of the brain from 05/26/2024 of the head from 05/17/2024. FINDINGS: Non-angiographic findings: No acute intra- or extra-axial fluid collections are identified. There is mild cerebral volume loss with associated ex vacuo ventricular dilatation. The basilar cisterns are patent. No mass effect or midline shift is seen. There are chronic infarcts in the right basal ganglia and adjacent right merchant radiata. There is a small chronic infarction in the left thalamus. There is a prominent focus of hypoattenuation adjacent to the left internal carotid artery, likely a large perivascular space. Additional patchy foci of hypoattenuation in the bilateral periventricular white matter, perhaps more conspicuous in the subcortical white matter of the right frontal lobe, (series 3, image 23). The mcgraw-white matter differentiation otherwise appears normal. Periventricular white matter hypoattenuation is indicative of chronic small vessel ischemic disease. There is vascular calcification of the carotid siphons. The visualized portions of the orbits appear grossly unremarkable.. There is opacification of a posterior right ethmoid air cell. Frothy secretions in the right sphenoid sinus. There is diffuse opacification of the mastoid air cells bilaterally, perhaps worse on the right side, with increased sclerosis. No acute fracture is identified. The patient is status post median sternotomy for CABG. Straightening of cervical lordosis. Degenerative changes in the cervical spine. Multilevel moderate central canal stenosis due to posterior disc osteophyte complexes most prominent at C5-C6. Angiographic findings: There is atherosclerotic disease of the aortic arch. There is a common origin of the innominate and left common carotid arteries from the aortic arch. There is atherosclerotic calcification of the innominate and subclavian arteries. There is atherosclerotic disease of the right carotid bifurcation and origin of the right internal carotid artery with less than 50 percent focal stenosis by NASCET criteria. The right common and internal carotid arteries otherwise appear normal. There is atherosclerotic disease of the left carotid bifurcation and origin of the left internal carotid artery with less than 50 percent focal stenosis by NASCET criteria. The left common and internal carotid arteries otherwise appear normal. The right vertebral artery is slightly dominant compared to the left. Other than mild focal stenosis at their origins due to atherosclerotic disease, the cervical vertebral arteries appear normal. There is atherosclerotic disease involving the distal internal carotid arteries with moderate multifocal stenoses. 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 Subtle fusiform dilation of the right supraclinoid internal to arteries also noted. 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 Otherwise the anterior and middle cerebral arteries are patent. There is atherosclerotic disease involving the distal vertebral arteries with moderate stenosis on the left side. Moderate to severe stenosis of the proximal basilar artery without evidence of complete occlusion. Otherwise the basilar artery and posterior cerebral arteries appear are patent with origin of the left posterior cerebral are. Otherwise, no additional aneurysms, vascular occlusions, or hemodynamically significant intracranial stenoses are identified. Procedure Note Shanell Morales MD - 05/27/2024 PROCEDURE: CT ANGIO BRAIN AND NECK, DATE/TIME OF EXAM: 05/26/2024 5:27PM, LOCATION [facility] INDICATION: I63.9: Cerebrovascular accident (CVA), unspecified mechanism (HCC) ADDITIONAL CLINICAL INFORMATION: Ordering Provider Reason For Exam: Vert stenosis Technologist Note: None Additional: None. EXAMINATION: 1. Computed tomographic (CT) angiography of the head without and with contrast 2. CT angiography of the neck with contrast CONTRAST: IOPAMIDOL 76 % IV SOLN:100 mL TECHNIQUE: CT of the head was performed without contrast according to standard protocol. Then CT angiography of the head and neck was obtained after the uneventful administration of 75 mL Isovue-370 intravenous contrast. Three dimensional postprocessing was performed by the technologist and sent to the workstation for review. Stenosismeasurements are based on NASCET criteria. CT dose reduction technique was used, including Automated Exposure Control. COMPARISON: MRI of the brain from 05/26/2024 of the head from 05/17/2024. FINDINGS: Non-angiographic findings: No acute intra- or extra-axial fluid collections are identified. Thereis mild cerebral volume loss with associated ex vacuo ventriculardilatation. The basilar cisterns are patent. No mass effect or midline shift isseen. There are chronic infarcts in the right basal ganglia and adjacent right merchant radiata. There is a small chronic infarction in the leftthalamus. There is a prominent focus of hypoattenuation adjacent to the leftinternal carotid artery, likely a large perivascular space. Additional patchyfoci of hypoattenuation in the bilateral periventricular white matter,perhaps more conspicuous in the subcortical white matter of the right frontallobe, (series 3, image 23). The mcgraw-white matter differentiation otherwise appears normal. Periventricular white matter hypoattenuation isindicative of chronic small vessel ischemic disease. There is vascularcalcification of the carotid siphons. The visualized portions of the orbits appear grossly unremarkable.. There is opacification of a posterior rightethmoid air cell. Frothy secretions in the right sphenoid sinus. There isdiffuse opacification of the mastoid air cells bilaterally, perhaps worse on the right side, with increased sclerosis. No acute fracture is identified. The patient is status post median sternotomy for CABG. Straightening of cervical lordosis. Degenerative changes in the cervical spine.Multilevel moderate central canal stenosis due to posterior disc osteophytecomplexes most prominent at C5-C6. Angiographic findings: There is atherosclerotic disease of the aortic arch. There is a common origin of the innominate and left common carotid arteries from theaortic arch. There is atherosclerotic calcification of the innominate and subclavian arteries. There is atherosclerotic disease of the rightcarotid bifurcation and origin of the right internal carotid artery with lessthan 50 percent focal stenosis by NASCET criteria. The right common andinternal carotid arteries otherwise appear normal. There is atheroscleroticdisease of the left carotid bifurcation and origin of the left internal carotid artery with less than 50 percent focal stenosis by NASCET criteria. The left common and internal carotid arteries otherwise appear normal. The right vertebral artery is slightly dominant compared to the left. Other than mild focal stenosis at their origins due to atheroscleroticdisease, the cervical vertebral arteries appear normal. There is atherosclerotic disease involving the distal internal carotid arteries with moderate multifocal stenoses. 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 Subtle fusiform dilation of the right supraclinoid internal to arteries also noted. 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 Otherwise the anterior and middle cerebral arteries are patent. There is atherosclerotic disease involving the distal vertebral arteries with moderate stenosis on the left side. Moderate to severe stenosis of the proximal basilar artery without evidence of complete occlusion.Otherwise the basilar artery and posterior cerebral arteries appear are patentwith origin of the left posterior cerebral are. Otherwise, noadditional aneurysms, vascular occlusions, or hemodynamically significantintracranial stenoses are identified. IMPRESSION: 1.No acute intracranial hemorrhage, midline shift, or significant mass effect. 2.Atherosclerotic disease of the extracranial and intracranial arterial vessels as outlined. 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 Viz.AI was used for large vessel occlusion detection. Report dictated by Bernie Batista MD I, Shamseldeen Y Mahmoud, MD have personally reviewed and interpretedthis examination/study. > Interpreting Provider: Shanell Morales MD on 05/27/2024 11:16 AM Jason Coppola MD CT ORDERABLES * MRI Brain Wo Contrast (05/26/2024 4:40 PM CDT) Only the most recent of3 resultswithin the time period is included. Anatomical Region Laterality Modality Head Magnetic Resonan ce 05/26/2024 4:50 PM CDT Impressions 05/27/2024 9:20 AM CDT IMPRESSION: 1.No acute intracranial abnormality including acute infarct, hemorrhage, or midline shift. Report dictated by Kem Diaz MD, PhD (radiology ct technologist). I, Monika Her MD have personally reviewed and interpreted this examination/study. > Interpreting Provider: Monika Her MD on 05/27/2024 9:20 AM Narrative 05/27/2024 9:20 AM CDT PROCEDURE: ??MRI BRAIN WO CONTRAST, DATE/TIME OF EXAM: ??05/26/2024 4:41 PM, LOCATION ??[facility] INDICATION: I63.9: Cerebrovascular accident (CVA), unspecified mechanism (HCC) ADDITIONAL CLINICAL INFORMATION: Ordering Provider Reason For Exam: ??rule out stroke Technologist Note: Additional: ??None. COMPARISON: No prior study is available for comparison at the time of this dictation. OSH reports from CT head dated 06/03/2024 was reviewed. EXAMINATION: Magnetic resonance imaging (MRI) of the brain without and with contrast TECHNIQUE: MRI of the brain was performed without contrast according to standard protocol. FINDINGS: Evaluation degraded by motion artifact. No evidence of acute or chronic hemorrhage is identified. No evidence of acute cerebral infarction is seen. Moderate cerebral volume loss with associated ex vacuo ventricular dilatation. No mass effect or midline shift is seen. Moderate periventricular and subcortical white matter FLAIR hyperintensities likely represent sequelae of chronic small vessel ischemic disease. Small chronic infarcts are present in the right gangliocapsular region, merchant radiata, left thalamus and left basal ganglia. The corpus callosum appears normal. The sella is partially empty. Possible small chronic infarct also noted in the right cerebellar hemisphere The posterior fossa, brainstem, and craniocervical junction otherwise appear normal. Minimal mucosal thickening of the bilateral maxillary sinuses, opacification of small posterior right ethmoidal air cell. Moderate bilateral mastoid effusions. Otherwise, the visualized portions of the orbits, remaining paranasal sinuses, and mastoids appear normal. Normal flow voids are demonstrated in the carotid arteries and basilar artery. The calvarium appears normal. Mild degenerative changes without significant central canal stenosis in the partially visualized cervical spine.. Procedure Note Monika Her MD - 05/27/2024 PROCEDURE: MRI BRAIN WO CONTRAST, DATE/TIME OF EXAM: 05/26/2024 4:41PM, LOCATION [facility] INDICATION: I63.9: Cerebrovascular accident (CVA), unspecified mechanism (HCC) ADDITIONAL CLINICAL INFORMATION: Ordering Provider Reason For Exam: rule out stroke Technologist Note: Additional: None. COMPARISON: No prior study is available for comparison at the time ofthis dictation. OSH reports from CT head dated 06/03/2024 was reviewed. EXAMINATION: Magnetic resonance imaging (MRI) of the brain without andwith contrast TECHNIQUE: MRI of the brain was performed without contrast according to standard protocol. FINDINGS: Evaluation degraded by motion artifact. No evidence of acute or chronic hemorrhage is identified. No evidence of acute cerebral infarction is seen. Moderate cerebral volume loss with associated ex vacuo ventricular dilatation. No mass effect or midlineshift is seen. Moderate periventricular and subcortical white matter FLAIR hyperintensities likely represent sequelae of chronic small vesselischemic disease. Small chronic infarcts are present in the right gangliocapsular region, merchant radiata, left thalamus and left basal ganglia. The corpus callosum appears normal. The sella is partially empty. Possible small chronic infarct also noted in the right cerebellar hemisphere Theposterior fossa, brainstem, and craniocervical junction otherwise appear normal. Minimal mucosal thickening of the bilateral maxillary sinuses, opacification of small posterior right ethmoidal air cell. Moderate bilateral mastoid effusions. Otherwise, the visualized portions of the orbits, remaining paranasal sinuses, and mastoids appear normal. Normal flow voids are demonstrated in the carotid arteries and basilar artery.The calvarium appears normal. Mild degenerative changes without significant central canal stenosis in the partially visualized cervical spine.. IMPRESSION: 1.No acute intracranial abnormality including acute infarct, hemorrhage,or midline shift. Report dictated by Kem Diaz MD, PhD (radiology ct technologist). I, Monika Her MD have personally reviewed and interpreted this examination/study. > Interpreting Provider: Monika Her MD on 05/27/2024 9:20 AM Jason Coppola MD MR ORDERABLES * (ABNORMAL) CBC W AUTO DIFFERENTIAL (05/26/2024 8:27 AM [facility]) Only the most recent of36 resultswithin the time period is included. WBC 7.7 4.0 - 10.7 x10E9/L 05/26/2024 8:39 AM [facility] RBC Count 3.94(L) 4.30 - 5.80 x10E12/L 05/26/2024 8:39 AM [facility] Hemoglobin 10.6(L) 13.3 - 17.5 g/dL 05/26/2024 8:39 AM [facility] Hematocrit 33.0(L) 38.7 - 51.1 % 05/26/2024 8:39 AM [facility] MCV 83.8 80.0 - 98.0 fL 05/26/2024 8:39 AM [facility] MCH 26.9 26.7 - 33.6 pg 05/26/2024 8:39 AM [facility] MCHC 32.1 31.7 - 36.3 g/dL 05/26/2024 8:39 AM [facility] RDW-CV 14.6 11.3 - 14.8 % 05/26/2024 8:39 AM [facility] Platelet Count 220 150 - 420 x10E9/L 05/26/2024 8:39 AM [facility] MPV 9.8 7.8 - 11.4 fL 05/26/2024 8:39 AM [facility] Neutrophil % 60.9 41.0 - 74.0 % 05/26/2024 8:39 AM [facility] Lymphocyte % 29.5 17.0 - 47.0 % 05/26/2024 8:39 AM [facility] Monocyte % 8.0 3.0 - 11.0 % 05/26/2024 8:39 AM [facility] Eosinophil % 1.2 0.0 - 7.0 % 05/26/2024 8:39 AM [facility] Basophil % 0.3 0.0 - 1.6 % 05/26/2024 8:39 AM [facility] Immature Granulocytes % 0.1 0.0 - 1.0 % 05/26/2024 8:39 AM [facility] Neutrophil Absolute 4.68 1.60 - 7.50 x10E9/L 05/26/2024 8:39 AM [facility] Lymphocyte Absolute 2.26 1.00 - 4.40 x10E9/L 05/26/2024 8:39 AM [facility] Monocyte Absolute 0.61 0.15 - 1.00 x10E9/L 05/26/2024 8:39 AM [facility] Eosinophil Absolute 0.09 0.00 - 0.60 x10E9/L 05/26/2024 8:39 AM [facility] Basophil Absolute 0.02 0.00 - 0.13 x10E9/L 05/26/2024 8:39 AM [facility] Blood BLOOD SPECIMEN / Unknown Venipuncture / Unknown 05/26/2024 8:27 AM CDT 05/26/2024 8:32 AM CDT Jason Coppola MD LAB - HEMATOLOGY ORD ERABLES [facility] [address] [place] [address], [facility] [phone] * HEMOGLOBIN A1C - POINT OF CARE (AMB) (05/22/2024 2:19 PM CDT) Only the most recent of5 resultswithin the time period is included. Hemoglobin A1c POCT 7.1 % Expiration Date 01/23/2026 Lot # [id number] QC Verified Yes Yes Blood BLOOD SPECIMEN / Unknown 05/22/2024 2:19 PM CDT Kiana Cole MD LAB - POINT OF CARE ORDERABLES * CT LUMBAR SPINE NON CONTRAST (05/17/2024 12:57 PM CDT) Anatomical Region Laterality Modality Spine Computed Tomogra phy 05/17/2024 1:15 PM CDT Impressions 05/17/2024 1:23 PM CDT IMPRESSION: No evidence for lumbar spine fracture. Degenerative changes as above > Interpreting Provider: Rony Soliman JR, MD on 05/17/2024 1:23 PM Narrative 05/17/2024 1:23 PM CDT PROCEDURE: ??CT LUMBAR SPINE WO CONTRAST DATE/TIME OF EXAM: ??05/17/2024 12:57 PM CLINICAL INFORMATION: Back pain Indication: W19.XXXA: Unspecified fall, initial encounter COMPARISON: None. TECHNIQUE: CT of the lumbar spine was preformed utilizing standard protocol. ??Sagittal and coronal reformatted images were rendered. ?? CT dose reduction technique was used, including Automated Exposure Control. FINDINGS: There is no lumbar compression fracture or subluxation. There is no osseous destruction. There is degenerative endplate change, mild hypertrophic spurring and mild facet arthropathy present throughout the lumbar region. There is vacuum disc phenomenon at L5-S1. There is no obvious central canal stenosis seen on this noncontrast study. There is no paraspinal mass or fluid collection. Procedure Note Rony Soliman MD - 05/17/2024 PROCEDURE: CT LUMBAR SPINE WO CONTRAST DATE/TIME OF EXAM: 05/17/2024 12:57 PM CLINICAL INFORMATION: Back pain Indication: W19.XXXA: Unspecified fall, initial encounter COMPARISON: None. TECHNIQUE: CT of the lumbar spine was preformed utilizing standard protocol.Sagittal and coronal reformatted images were rendered. CT dose reduction technique was used, including Automated ExposureControl. FINDINGS: There is no lumbar compression fracture or subluxation. There is noosseous destruction. There is degenerative endplate change, mild hypertrophic spurring and mild facet arthropathy present throughout the lumbarregion. There is vacuum disc phenomenon at L5-S1. There is no obvious centralcanal stenosis seen on this noncontrast study. There is no paraspinal mass or fluid collection. IMPRESSION: No evidence for lumbar spine fracture. Degenerative changes as above > Interpreting Provider: Rony Soliman JR, MD on 05/17/2024 1:23 PM Sarah Betancur MD CT ORDERABLES * CT THORACIC SPINE WO CONTRAST (05/17/2024 12:54 PM CDT) Anatomical Region Laterality Modality Spine Computed Tomogra phy 05/17/2024 1:23 PM CDT Impressions 05/17/2024 1:24 PM CDT IMPRESSION: No fracture, subluxation or osseous destruction > Interpreting Provider: Rony Soliman JR, MD on 05/17/2024 1:24 PM Narrative 05/17/2024 1:24 PM CDT EXAM: CT THORACIC SPINE WO CONTRAST INDICATION: W19.XXXA: Unspecified fall, initial encounter, back pain TECHNIQUE: Helically acquired contiguous axial sections through the thoracic spine performed without contrast COMPARISON: none available FINDINGS: There is no compression fracture or subluxation. There is no osseous destruction. There is no central canal or foraminal stenosis seen on this noncontrast study. There is no paraspinal mass. Mild anterior spurring is noted throughout the lower thoracic region. Procedure Note Rony Soliman MD - 05/17/2024 EXAM: CT THORACIC SPINE WO CONTRAST INDICATION: W19.XXXA: Unspecified fall, initial encounter, back pain TECHNIQUE: Helically acquired contiguous axial sections through the thoracic spine performed without contrast COMPARISON: none available FINDINGS: There is no compression fracture or subluxation. There is no osseous destruction. There is no central canal or foraminal stenosis seen onthis noncontrast study. There is no paraspinal mass. Mild anterior spurringis noted throughout the lower thoracic region. IMPRESSION: No fracture, subluxation or osseous destruction > Interpreting Provider: Rony Soliman JR, MD on 05/17/2024 1:24 PM Sarah Betancur MD CT ORDERABLES * CT CERVICAL SPINE WO CONTRAST (05/17/2024 12:54 PM CDT) Anatomical Region Laterality Modality Spine Computed Tomogra phy 05/17/2024 1:13 PM CDT Impressions 05/17/2024 1:14 PM CDT IMPRESSION: No fracture, subluxation or osseous destruction in the cervical spine > Interpreting Provider: Rony Soliman JR, MD on 05/17/2024 1:14 PM Narrative 05/17/2024 1:14 PM CDT EXAM: CT Cervical Spine Without Contrast INDICATION: W19.XXXA: Unspecified fall, initial encounter, neck injury/neck pain COMPARISON: none available TECHNIQUE: Helically acquired contiguous axial sections through the C-spine performed without IV contrast. Thin collimation was used. Sagittal and coronal reconstructions were performed from the original helical data. FINDINGS: There is no compression fracture or subluxation. There is no osseous destruction. There is no prevertebral soft tissue swelling. A posterior neural arch fracture is not identified. There is decreased intervertebral disc space height, degenerative endplate change, hypertrophic spurring and facet arthropathy present throughout the cervical region. Procedure Note Rony Soliman MD - 05/17/2024 EXAM: CT Cervical Spine Without Contrast INDICATION: W19.XXXA: Unspecified fall, initial encounter, neckinjury/neck pain COMPARISON: none available TECHNIQUE: Helically acquired contiguous axial sections through theC-spine performed without IV contrast. Thin collimation was used. Sagittal and coronal reconstructions were performed from the original helical data. FINDINGS: There is no compression fracture or subluxation. There is no osseous destruction. There is no prevertebral soft tissue swelling. A posterior neural arch fracture is not identified. There is decreased intervertebral disc space height, degenerativeendplate change, hypertrophic spurring and facet arthropathy present throughoutthe cervical region. IMPRESSION: No fracture, subluxation or osseous destruction in the cervical spine > Interpreting Provider: Rony Soliman JR, MD on 05/17/2024 1:14 PM Sarah Betancur MD CT ORDERABLES * CT HEAD WO CONTRAST (05/17/2024 12:52 PM CDT) Only the most recent of4 resultswithin the time period is included. Anatomical Region Laterality Modality Head Computed Tomogra phy 05/17/2024 1:13 PM CDT Impressions 05/17/2024 1:14 PM CDT IMPRESSION: No acute intracranial abnormalities Chronic periventricular white matter microvascular ischemic change > Interpreting Provider: Rony Soliman JR, MD on 05/17/2024 1:14 PM Narrative 05/17/2024 1:14 PM CDT EXAM: ??CT scan of the brain without contrast TECHNIQUE: Axial images through the brain without contrast. [employer] software was utilized to analyze for intracranial hemorrhage. One or more of the following CT dose reduction techniques were utilized: - Automated exposure control (AEC) - Adjustment of mA and/or kV according to patient size - Use of iterative reconstruction technique - CT scan done according to ALARA or ALARA/IMAGE GENTLY INDICATION: W19.XXXA: Unspecified fall, initial encounter COMPARISON: None Available FINDINGS: There is no evidence of acute intracranial hemorrhage. There is no mass or midline shift. There is volume loss with prominence of the cortical sulci and ventricles. There are nonspecific areas of low-attenuation in the periventricular/subcortical white matter consistent with chronic microvascular ischemic change. Chronic bilateral basal ganglia lacunar infarcts are redemonstrated and are unchanged. There are no extra-axial fluid collections. The bony calvarium is intact. The paranasal sinuses are well aerated. Procedure Note Rony Soliman MD - 05/17/2024 EXAM: CT scan of the brain without contrast TECHNIQUE: Axial images through the brain without contrast. [employer] AIsoftware was utilized to analyze for intracranial hemorrhage. One or more of the following CT dose reduction techniques were utilized: - Automated exposure control (AEC) - Adjustment of mA and/or kV according to patient size - Use of iterative reconstruction technique - CT scan done according to ALARA or ALARA/IMAGE GENTLY INDICATION: W19.XXXA: Unspecified fall, initial encounter COMPARISON: None Available FINDINGS: There is no evidence of acute intracranial hemorrhage. There is no massor midline shift. There is volume loss with prominence of the corticalsulci and ventricles. There are nonspecific areas of low-attenuation in the periventricular/subcortical white matter consistent with chronic microvascular ischemic change. Chronic bilateral basal ganglia lacunar infarcts are redemonstrated and are unchanged. There are no extra-axial fluid collections. The bony calvarium is intact. The paranasal sinusesare well aerated. IMPRESSION: No acute intracranial abnormalities Chronic periventricular white matter microvascular ischemic change > Interpreting Provider: Rony Soliman JR, MD on 05/17/2024 1:14 PM Sarah Betancur MD CT ORDERABLES * XR Shoulder Right 2Vw or More (05/17/2024 10:47 AM CDT) Only the most recent of2 resultswithin the time period is included. Anatomical Region Laterality Modality Upper Extremity Radiographic Love ging 05/17/2024 10:5 0 AM CDT Impressions 05/17/2024 10:51 AM CDT IMPRESSION: No acute bony abnormality seen involving the right shoulder > Interpreting Provider: Antonella Avila MD on 05/17/2024 10:51 AM Narrative 05/17/2024 10:51 AM CDT PROCEDURE: ??XR SHOULDER RIGHT 2VW OR MORE DATE/TIME OF EXAM: ??05/17/2024 10:48 AM CLINICAL INFORMATION: None relevant/not provided if blank. Indication: W19.XXXA: Unspecified fall, initial encounter Additional History: COMPARISON: None. FINDINGS: 3 views of the right shoulder are submitted. No fracture or dislocation is seen. There is no radiopaque foreign body within the soft tissues. Mild arthropathy is present at the acromioclavicular joint. Procedure Note Antonella Avila MD - 05/17/2024 PROCEDURE: XR SHOULDER RIGHT 2VW OR MORE DATE/TIME OF EXAM: 05/17/2024 10:48 AM CLINICAL INFORMATION: None relevant/not provided if blank. Indication: W19.XXXA: Unspecified fall, initial encounter Additional History: COMPARISON: None. FINDINGS: 3 views of the right shoulder are submitted. No fracture or dislocationis seen. There is no radiopaque foreign body within the soft tissues. Mild arthropathy is present at the acromioclavicular joint. IMPRESSION: No acute bony abnormality seen involving the right shoulder > Interpreting Provider: Antonella Avila MD on 05/17/2024 10:51 AM Sarah Betancur MD DIAGNOSTIC IMAGING O RDERABLES * XR Pelvis 1 or 2Vw (05/17/2024 10:47 AM CDT) Anatomical Region Laterality Modality Pelvis Radiographic Love ging 05/17/2024 10:5 0 AM CDT Narrative 05/17/2024 10:51 AM CDT AP pelvis Indication: Pelvic pain Findings: There is no displaced fracture or dislocation. There is no osseous destruction. There is joint space narrowing and acetabular subchondral sclerosis at bilateral hips. > Interpreting Provider: Rony Soliman JR, MD on 05/17/2024 10:51 AM Procedure Note Rony Soliman MD - 05/17/2024 AP pelvis Indication: Pelvic pain Findings: There is no displaced fracture or dislocation. There is no osseous destruction. There is joint space narrowing and acetabular subchondral sclerosis at bilateral hips. > Interpreting Provider: Rony Soliman JR, MD on 05/17/2024 10:51 AM Sarah Betancur MD DIAGNOSTIC IMAGING O RDERABLES * XR CHEST 1VW PORTABLE (05/17/2024 10:47 AM CDT) Only the most recent of17 resultswithin the time period is included. Anatomical Region Laterality Modality Chest Radiographic Love ging 05/17/2024 10:5 0 AM CDT Impressions 05/17/2024 10:50 AM CDT IMPRESSION: There is no acute-appearing cardiac or pulmonary abnormality > Interpreting Provider: Antonella Avila MD on 05/17/2024 10:50 AM Narrative 05/17/2024 10:50 AM CDT PROCEDURE: ??XR CHEST 1VW PORTABLE, DATE/TIME OF EXAM: ??05/17/2024 10:47 AM, LOCATION ??[facility] INDICATION: W19.XXXA: Unspecified fall, initial encounter ADDITIONAL CLINICAL INFORMATION: Ordering Provider Reason For Exam: Technologist Note: Additional: COMPARISON: April 08, 2024 FINDINGS: Single AP view of the chest shows the lungs to be expanded and clear. Cardiac size is stable. Sternotomy wires are present. No pneumothorax is seen. Pulmonary vasculature does not appear congested. Procedure Note Antonella Avila MD - 05/17/2024 PROCEDURE: XR CHEST 1VW PORTABLE, DATE/TIME OF EXAM: 05/17/2024 10:47AM, LOCATION [facility] INDICATION: W19.XXXA: Unspecified fall, initial encounter ADDITIONAL CLINICAL INFORMATION: Ordering Provider Reason For Exam: Technologist Note: Additional: COMPARISON: April 08, 2024 FINDINGS: Single AP view of the chest shows the lungs to be expanded and clear. Cardiac size is stable. Sternotomy wires are present. No pneumothorax is seen. Pulmonary vasculature does not appear congested. IMPRESSION: There is no acute-appearing cardiac or pulmonary abnormality > Interpreting Provider: Antonella Avila MD on 05/17/2024 10:50 AM Sarah Betancur MD DIAGNOSTIC IMAGING O RDERABLES * (ABNORMAL) COMPREHENSIVE METABOLIC PANEL (05/17/2024 10:24 AM CDT) Only the most recent of21 resultswithin the time period is included. Glucose 127(H) 70 - 105 mg/dL 05/17/2024 10:53 AM CDT [facility] Sodium 141 136 - 145 mmol/L 05/17/2024 10:53 AM CDT [facility] Potassium 4.8 3.5 - 5.1 mmol/L 05/17/2024 10:53 AM CDT [facility] Chloride 106 98 - 107 mmol/L 05/17/2024 10:53 AM CDT [facility] CO2 26 22 - 29 mmol/L 05/17/2024 10:53 AM CDT [facility] Calcium 9.7 8.4 - 10.4 mg/dL 05/17/2024 10:53 AM CDT [facility] Anion Gap 9 6 - 16 mmol/L 05/17/2024 10:53 AM CDT [facility] BUN 18 7 - 26 mg/dL 05/17/2024 10:53 AM CDT [facility] Creatinine 0.88 0.72 - 1.25 mg/dL 05/17/2024 10:53 AM CDT [facility] Alkaline Phosphatase 59 40 - 150 U/L 05/17/2024 10:53 AM CDT [facility] ALT 22 0 - 55 U/L 05/17/2024 10:53 AM CDT [facility] AST 15 5 - 34 U/L 05/17/2024 10:53 AM CDT [facility] Protein Total 8.0 6.4 - 8.3 gm/dL 05/17/2024 10:53 AM CDT [facility] Albumin 3.1(L) 3.4 - 5.0 gm/dL 05/17/2024 10:53 AM CDT [facility] Bilirubin Total 0.3 0.2 - 1.2 mg/dL 05/17/2024 10:53 AM T [facility] eGFR by CKD-EPI >90 >=90 mL/min/1.7 3 m2 05/17/2024 10:53 AM CDT [facility] Blood BLOOD SPECIMEN / Unknown Venipuncture / Unknown 05/17/2024 10:24 AM CDT 05/17/2024 10:28 AM CDT Sarah Betancur MD LAB - CHEMISTRY ORDE [facility] Organization Address City/State/ZIP Co de Phone Number [facility] [address] [place] [address] * CK BLOOD (05/17/2024 10:24 AM CDT) Only the most recent of3 resultswithin the time period is included. CK 125 30 - 200 U/L 05/17/2024 10:53 AM CDT [facility] Blood BLOOD SPECIMEN / Unknown Venipuncture / Unknown 05/17/2024 10:24 AM CDT 05/17/2024 10:28 AM CDT Sarah Betancur MD LAB - CHEMISTRY [facility] Organization Address City/State/ZIP Co de Phone Number [facility] [address] [place] [address] * XR ABDOMEN KUB PORTABLE (04/28/2024 10:56 AM CDT) Anatomical Region Laterality Modality Abdomen Radiographic Love ging 04/28/2024 10:5 2 AM CDT Impressions 04/28/2024 11:10 AM CDT IMPRESSION: Left upper quadrant gastrostomy tube with contrast opacification of the gastric lumen. No evidence of extraluminal contrast. Report dictated by Ted Weber M.D. (radiology ct technologist) 04/28/2024 10:57 AM IAv MD have personally reviewed and interpreted this examination/study. > Interpreting Provider: Av Ariza MD on 04/28/2024 11:10 AM Narrative 04/28/2024 11:10 AM CDT PROCEDURE: ??XR ABDOMEN KUB PORTABLE, DATE/TIME OF EXAM: ??04/28/2024 10:56 AM, LOCATION ??[facility] INDICATION: R68.89: Complaint associated with gastric tube (HCC) Z93.1: Complaint associated with gastric tube (HCC) ADDITIONAL CLINICAL INFORMATION: Ordering Provider Reason For Exam: ??G-tube placement COMPARISON: Abdominal radiograph 04/21/2024 TECHNIQUE: Supine portable frontal radiograph of the abdomen with partial visualization of the pelvis. FINDINGS: Gastrostomy tube overlies the left upper quadrant with tip superimposes the level of the body the stomach. Contrast opacification noted within the gastric lumen. No evidence of definite extraluminal contrast. There are no findings to suggest bowel obstruction or definite pneumatosis on this supine study. Scattered nondistended multiple gas-filled small bowel loops noted in association with gas and fecal debris scattered within the visualized colon. No abnormal calcifications are seen. No bone abnormality is seen. Partially visualized median sternotomy wires. Procedure Note Av Ariza MD - 04/28/2024 PROCEDURE: XR ABDOMEN KUB PORTABLE, DATE/TIME OF EXAM: 04/28/2024 10:56 AM, LOCATION [facility] INDICATION: R68.89: Complaint associated with gastric tube (HCC) Z93.1: Complaint associated with gastric tube (HCC) ADDITIONAL CLINICAL INFORMATION: Ordering Provider Reason For Exam: G-tube placement COMPARISON: Abdominal radiograph 04/21/2024 TECHNIQUE: Supine portable frontal radiograph of the abdomen withpartial visualization of the pelvis. FINDINGS: Gastrostomy tube overlies the left upper quadrant with tip superimposesthe level of the body the stomach. Contrast opacification noted within the gastric lumen. No evidence of definite extraluminal contrast. There are no findings to suggest bowel obstruction or definitepneumatosis on this supine study. Scattered nondistended multiple gas-filled small bowel loops noted in association with gas and fecal debris scatteredwithin the visualized colon. No abnormal calcifications are seen. No bone abnormality is seen. Partially visualized median sternotomywires. IMPRESSION: Left upper quadrant gastrostomy tube with contrast opacification of the gastric lumen. No evidence of extraluminal contrast. Report dictated by Ted Weber M.D. (radiology ct technologist) 04/28/2024 10:57 AM I, Av Ariza MD have personally reviewed and interpreted this examination/study. > Interpreting Provider: Av Ariza MD on 04/28/2024 11:10 AM Jeffrey Rivera MD DIAGNOSTIC IMAGING O RDERABLES * XR ABDOMEN KUB (04/21/2024 9:22 PM CDT) Only the most recent of5 resultswithin the time period is included. 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 FINDINGS/IMPRESSION: The images demonstrate a gastrostomy tube projecting over the left side of the abdomen. Contrast injected through the gastrostomy tube enters the gastric fundus. No extraluminal contrast extravasation is observed. Report dictated by Marc Mei MD (radiology ct technologist). Rafy Jules MD have personally reviewed and interpreted this examination/study. > Interpreting Provider: Rafy Arciniega MD on 04/22/2024 8:33 AM Procedure Note Rafy Arciniega MD - 04/22/2024 PROCEDURE: XR ABDOMEN KUB DATE/TIME OF EXAM: 04/21/2024 9:23 PM Indication: K94.23: Gastrostomy tube dysfunction (HCC) Additional History: COMPARISON: None. FINDINGS/IMPRESSION: The images demonstrate a gastrostomy tube projecting over the left sideof the abdomen. Contrast injected through the gastrostomy tube enters the gastric fundus. No extraluminal contrast extravasation is observed. Report dictated by Marc Mei MD (radiology ct technologist). Rafy Jules MD have personally reviewed and interpreted this examination/study. > Interpreting Provider: Rafy Arciniega MD on 04/22/2024 8:33 AM Frederic Palmer MD DIAGNOSTIC IMAGING O RDERABLES * SARS-COV-2 (COVID-19) RAPID (04/10/2024 1:24 PM CDT) COVID-19 PCR Not detected Not detected 04/10/20 2:48 PM CDT [facility] Other ENTIRE NASOPHARYNX / Unknown Collection / Unknown 04/10/2024 1:24 PM CDT 04/10/2024 2:16 PM CDT Narrative [facility] - 04/10/2024 2:48 PM CDT The Cepheid Xpert Xpress SARS-COV-2 has been authorized by the Food and Drug Administration (FDA) under an Emergency Use Authorization (EUA). This test has been validated in accordance with the FDA's guidance document Policy for Diagnostic Testing in Laboratories Certified to perform High Complexity Testing under CLIA prior to Emergency Use Authorization for Coronavirus Disease-2019 during the Public Health Emergency issued on December 13, 2019. FDA independent review of this validation is pending. This test is only authorized for the duration of the time the declaration that circumstances exist justifying the authorization of emergency use of in vitro diagnostic tests for detection of SARS-COV-2 virus and/or diagnosis of COVID-19 infection under 564(b) (1) of the Act. 21 U.S.C. 360bbb-3 (b) (1), unless the authorization is terminated or revoked sooner. Fact Sheets for this EUA assay are available upon request. Aishwarya Barrera MD LAB - MICROBIOLOGY O АННА [facility] [address] [id number] * EGD WITH PEG PLACEMENT (03/17/2024 1:08 PM CDT) Report Endoscopy POC _ Patient Name: Raza Vazquez ? Procedure Date: 03/17/2024 1:08 PM ? Date of : 1960 ? Admit Type: Inpatient Age: 63 ? Gender: Male Ethnicity: Not or ? Race: Black or Attending MD: Alex Lopez MD, [id number] _ Procedure: ? Upper GI endoscopy Indications: ? Place PEG because patient is unable to eat, Place PEG ? due to dysphagia, Place PEG because patient is unable ? to eat due to stroke (CVA) Providers: ? Alex Lopez MD (Doctor), Leilani Zhao, ZACHARY, ? Beckie Angel RN Medicines: ? Monitored Anesthesia Care Complications: ? No immediate complications. Estimated blood loss: ? Minimal. _ Estimated Blood Loss: ? Estimated blood loss was minimal. Procedure: ? Pre-Anesthesia Assessment: ? - Prior to the procedure, a History and Physical was ? performed, and patient medications and allergies were ? reviewed. The patient's tolerance of previous ? anesthesia was also reviewed. The risks and benefits ? of the procedure and the sedation options and risks ? were discussed with the patient. All questions were ? answered, and informed consent was obtained. Prior ? Anticoagulants: The patient has taken no anticoagulant ? or antiplatelet agents. ASA Grade Assessment: III - A ? patient with severe systemic disease. After reviewing ? the risks and benefits, the patient was deemed in ? satisfactory condition to undergo the procedure. ? After obtaining informed consent, the endoscope was ? passed under direct vision. Throughout the procedure, ? the patient's blood pressure, pulse, and oxygen ? saturations were monitored continuously. The Endoscope ? was introduced through the mouth, and advanced to the ? second part of duodenum. Moderate sedation was ? administered for 15 minutes The upper GI endoscopy was ? accomplished without difficulty. The patient tolerated ? the procedure well. ? Impression: ?- Normal esophagus. ? - Normal stomach. ? - Normal examined duodenum. ? - An externally removable PEG placement was ? successfully completed. ? - No specimens collected. Moderate Sedation: ? Moderate (conscious) sedation was administered by the nurse and ? supervised by the endoscopist. The patient's oxygen saturation, heart ? rate, blood pressure and response to care were monitored. Findings: ? The esophagus was normal. ? The entire examined stomach was normal. The patient was placed in the ? supine position for PEG placement. The stomach was insufflated to appose ? gastric and abdominal tracy. A site was located in the body of the ? stomach with good transillumination and manual external pressure for ? placement. The abdominal wall was marked and prepped in a sterile ? manner. The area was anesthetized with 2 mL of 1% lidocaine. The trocar ? needle was introduced through the abdominal wall and into the stomach ? under direct endoscopic view. A snare was introduced through the ? endoscope and opened in the gastric lumen. The guide wire was passed ? through the trocar and into the open snare. The snare was closed around ? the guide wire. The endoscope and snare were removed, pulling the wire ? out through the mouth. A skin incision was made at the site of needle ? insertion. The externally removable 20 Fr EndoVive Safety gastrostomy ? tube was lubricated. The G-tube was tied to the guide wire and pulled ? through the mouth and into the stomach. The trocar needle was removed, ? and the gastrostomy tube was pulled out from the stomach through the ? skin. The external bumper was attached to the gastrostomy tube, and the ? tube was cut to remove the guide wire. The final position of the ? gastrostomy tube was confirmed by relook endoscopy, and skin marking ? noted to be 4.5 cm at the external bumper. The final tension and ? compression of the abdominal wall by the PEG tube and external bumper ? were checked and revealed that the bumper was moderately tight and ? mildly deforming the skin. The feeding tube was capped, and the tube ? site cleaned and dressed. ? The examined duodenum was normal. _ Recommendation: ?- Patient has a contact number available for ? emergencies. The signs and symptoms of potential ? delayed complications were discussed with the patient. ? Return to normal activities tomorrow. Written ? discharge instructions were provided to the patient. ? - Continue present medications. Can use for meds ? immedieatly ? - NPO. ? - Please follow the post-PEG recommendations ? including: Nutrition consult for formula and volume. ? Procedure Code(s): ? --- Professional --- ? 66476, Esophagogastroduoden oscopy, flexible, transoral; with directed ? placement of percutaneous gastrostomy tube ? --- Technical --- ? 36216, Esophagogastroduoden oscopy, flexible, transoral; with directed ? placement of percutaneous gastrostomy tube Diagnosis Code(s): ? --- Professional --- ? R63.39, Other feeding difficulties ? R13.10, Dysphagia, unspecified ? Z43.1, Encounter for attention to gastrostomy ? --- Technical --- ? R63.39, Other feeding difficulties ? R13.10, Dysphagia, unspecified ? Z43.1, Encounter for attention to gastrostomy CPT copyright 2020 [employer]. All rights reserved. The codes documented in this report are preliminary and upon marketing project specialist review may be revised to meet current compliance requirements. Alex Lopez MD 03/17/2024 1:41:29 PM This report has been signed electronically. Number of Addenda: 0 Note Initiated On: 03/17/2024 1:08 PM [facility] 03/17/2024 1:08 PM CDT Alex Lopez MD GI PROCEDURE ORDERAB LES [facility] * (ABNORMAL) BLOOD GASES ART + COOX PANEL (03/11/2024 4:54 PM CDT) Only the most recent of4 resultswithin the time period is included. pH Arterial 7.43 7.35 - 7.45 pH 03/11/2024 4:57 PM CDT [facility] pCO2 Arterial 45 35 - 45 mmHg 4:57 PM CDT [facility] pO2 Arterial 69(L) 80 - 100 mmHg 03/11/2024 4:57 PM CDT [facility] HCO3 Arterial 29.9(H) 22.0 - 26.0 mmol/L 03/11/2024 4:57 PM CDT [facility] BE Arterial 4.9(H) -2.0 - 2.0 mmol/L 03/11/2024 4:57 PM CDT [facility] Oxyhemoglobin Arterial 92.3 % 03/11/2024 4:57 PM CDT [facility] Dexoyhemoglobin (HHB) % 4.9 % 03/11/2024 4:57 PM CDT [facility] O2 Content Arterial 14.1 Interpret within clinical context ml/dL 03/11/2024 4:57 PM CDT [facility] O2 Saturation Arterial 95 90 - 100 % 03/11/2024 4:57 PM CDT [facility] Methemoglobin <0.8 0.0 - 2.0 % 03/11/2024 4:57 PM CDT [facility] Carboxyhemoglobin 2.3(H) 0.0 - 2.0 % 2023 4:57 PM CDT [facility] Hemoglobin by COOX 10.8(L) 12.0 - 17.6 g/dL 03/11/2024 4:57 PM CDT [facility] Kevin's Test Positive 03/11/2024 4:57 PM CDT [facility] Sample Site Left RA 03/11/2024 4:57 PM CDT [facility] O2 Device Room Air 03/11/2024 4:57 PM CDT [facility] FI O2 21.0 % 03/11/2024 4:57 PM CDT [facility] P/F Ratio 329 03/11/2024 4:57 PM CDT [facility] Blood, arterial ARTERIAL BLOOD SPECIMEN / Unknown 03/11/2024 4:54 PM CDT 03/11/2024 4:54 PM CDT Thea Castaneda MD LAB - BLOOD GASES OR DERABLES Performing Organization Address [facility]/ZIP Co de Phone Number [facility] [address] [phone] * B-TYPE NATRIURETIC PEPTIDE (03/08/2024 1:01 PM CDT) Only the most recent of2 resultswithin the time period is included. BNP 18 <=100 pg/mL 03/08/2024 1:40 PM CDT [facility] Blood BLOOD SPECIMEN / Unknown Venipuncture / Unknown 03/08/2024 1:01 PM CDT 03/08/2024 1:17 PM CDT Thea Castaneda MD LAB - CHEMISTRY ORDE RABLES Performing Organization Address [facility] Co de Phone Number [facility] [address] [place] [address] * (ABNORMAL) URINE MICROSCOPIC ONLY REFLEX TO CULTURE (02/26/2024 10:10 PM CDT) Reflex Status Culture to follow 02/26/2024 10:29 PM CDT [facility] RBC UA 51-100(A) 0 - 5 # /hpf 02/26/2024 10:29 PM CDT [facility] WBC UA >100(A) 0 - 5 # /hpf 02/26/2024 10:29 PM CDT [facility] Bacteria UA 3+(A) None Seen 02/26/2024 10:29 PM CDT [facility] Squamous Epithelial Cells 3-5 0 - 5 /hpf 02/26/2024 10:29 PM CDT [facility] Mucus UA 3+ /LPF 02/26/2024 10:29 PM CDT [facility] Urine URINE SPECIMEN OBTAINED BY CLEAN CATCH PROCEDURE / Unknown 02/26/2024 10:10 PM CDT 02/26/2024 10:18 PM CDT Narrative [facility] - 02/26/2024 10:29 PM CDT Provider Unknown LAB - URINALYSIS ORD ERABLES [facility] [address] [place] [address] * (ABNORMAL) URINALYSIS REFLEX MICROSCOPIC REFLEX CULTURE (02/26/2024 10:10 PM CDT) Color UA Beckie(A) Straw, Yellow 02/26/2024 10:23 PM [facility] Clarity UA Cloudy(A) Clear 02/26/2024 10:23 PM [facility] Glucose UA Negative Negative 02/26/2024 10:23 PM [facility] Bilirubin UA Negative Negative 02/26/2024 10:23 PM [facility] Ketone UA Negative Negative 02/26/2024 10:23 PM [facility] Specific [place] UA 1.019 1.005 - 1.030 02/26/2024 10:23 PM [facility] Blood UA 1+(A) Negative 02/26/2024 10:23 PM [facility] pH UA 6.0 5.0 - 8.0 pH 02/26/2024 10:23 PM [facility] Protein UA 1+(A) Negative 02/26/2024 10:23 PM [facility] Urobilinogen UA 2.0(A) Negative mg/dL 02/26/2024 10:23 PM [facility] Nitrite UA Positive(A) Negative 02/26/2024 10:23 PM [facility] Leukocyte UA 3+(A) Negative 02/26/2024 10:23 PM [facility] Urine Microscopy Urine microscopy to follow 02/26/2024 10:23 PM [facility] Reflex Status Culture to follow 02/26/2024 10:23 PM [facility] Urine URINE SPECIMEN OBTAINED BY CLEAN CATCH PROCEDURE / Unknown 02/26/2024 10:10 PM CDT 02/26/2024 10:18 PM CDT Narrative [facility] - 02/26/2024 10:23 PM CDT Ascorbic Acid can cause false negative urine strip tests for blood, glucose, nitrite, and bilirubin. Provider Unknown LAB - URINALYSIS ORD ERABLES [facility] [address] [place] [address] * (ABNORMAL) CULTURE URINE (02/26/2024 10:10 PM CDT) Only the most recent of3 resultswithin the time period is included. Culture Urine >100,000 CFU/mL Escherichia coli(A) VALERIA 02/28/2024 11:34 AM CDT [facility] Urine URINE SPECIMEN OBTAINED BY CLEAN CATCH PROCEDURE / Unknown 02/26/2024 10:10 PM CDT 02/26/2024 10:18 PM CDT Narrative [facility] - 02/28/2024 11:34 AM CDT Organism Antibiotic Method Susceptibility Escherichia coli Amikacin VALERIA <=2 ug/mL: Susceptible Escherichia coli Ampicillin VALERIA >=32 ug/mL: Resistant Escherichia coli Ampicillin-sulbactam VALERIA 16 ug/mL: Intermediate Escherichia coli Cefazolin VALERIA <=4 ug/mL: See Comment* Escherichia coli Cefazolin-Urine (uncomplicated infections ONLY) VALERIA <=4 ug/mL: Susceptible Escherichia coli Cefepime VALERIA <=1 ug/mL: Susceptible Escherichia coli Ceftriaxone VALERIA <=1 ug/mL: Susceptible Escherichia coli Ciprofloxacin VALERIA <=0.25 ug/mL: Susceptible Escherichia coli Extended-Spectrum Beta-Lactamase VALERIA NEG ug/mL: Neg Escherichia coli Gentamicin VALERIA >=16 ug/mL: Resistant Escherichia coli Meropenem VALERIA <=0.25 ug/mL: Susceptible Escherichia coli Piperacillin-tazobactam VALERIA <=4 ug/mL: Susceptible Escherichia coli Tobramycin VALERIA 8 ug/mL: Resistant Escherichia coli Trimethoprim-sulfame thoxa zole VALERIA >=320 ug/mL: Resistant Comment: *Cefazolin VALERIA of </=4 cannot distinguish between susceptible or intermediate for systemic breakpoints. If further defined interpretation is needed, call Microbiology and a disk diffusion test will be performed. Urine breakpoints for cefazolin should only be used when treating uncomplicated UTIs including men and women without urologic abnormality, kidney stones, stents, nephrostomy tubes, signs/symptoms of systemic illness, or pelvic/perineal pain in men. Cefazolin results can be used to predict susceptibility to oral cephalosporins - cephalexin, cefprozil, cefaclor, cefuroxime, cefdinir, and cefpodoxime. For complicated UTIs, use alternative cefazolin susceptibility result above. Provider Unknown LAB - MICROBIOLOGY O RDERABLES Performing Organization Address City/[facility]/ZIP Co de Phone Number [facility] [address] [place] [address], [facility] [phone] * CARDIAC RHYTHM STRIP ORDER (02/18/2024 7:29 PM CDT) Only the most recent of2 resultswithin the time period is included. Narrative 02/18/2024 7:29 PM CDT Ordered by an unspecified provider. Scanned Document CARDIAC SERVICES ORD ERABLES * PREALBUMIN (02/16/2024 4:50 AM CDT) Prealbumin 21.0 16.0 - 42.0 mg/dL 02/16/2024 5:46 AM CDT [facility] Blood BLOOD SPECIMEN / Unknown 02/16/2024 4:50 AM CDT 02/16/2024 5:21 AM CDT Thea Castaneda MD LAB - CHEMISTRY CHRISTIAN RAZO [facility] [address] [place] [address] * TSH (02/16/2024 4:50 AM CDT) TSH 1.6844 0.35 - 4.94 uIU/mL 02/16/2024 6:09 AM CDT [facility] Blood BLOOD SPECIMEN / Unknown Venipuncture / Unknown 02/16/2024 4:50 AM CDT 02/16/2024 5:21 AM CDT Thea Castaneda MD LAB - CHEMISTRY CHRISTIAN Montes [place] Organization Address City/State/ZIP Co de Phone Number [facility] [address] [place] [address] * (ABNORMAL) RENAL FUNCTION PANEL (02/14/2024 4:10 PM CDT) Only the most recent of4 resultswithin the time period is included. Glucose 253(H) 70 - 105 mg/dL 02/14/2024 4:32 PM CDT [facility] Sodium 135(L) 136 - 145 mmol/L 02/14/2024 4:32 PM CDT [facility] Potassium 4.2 3.5 - 5.1 mmol/L 02/14/2024 4:32 PM CDT [facility] Chloride 104 98 - 107 mmol/L 02/14/2024 4:32 PM CDT [facility] CO2 22 22 - 29 mmol/L 02/14/2024 4:32 PM CDT [facility] Calcium 10.0 8.4 - 10.4 mg/dL 02/14/2024 4:32 PM CDT [facility] Anion Gap 9 6 - 16 mmol/L 02/14/2024 4:32 PM CDT [facility] BUN 38(H) 7 - 26 mg/dL 02/14/2024 4:32 PM CDT [facility] Creatinine 0.95 0.72 - 1.25 mg/dL 02/14/2024 4:32 PM CDT [facility] Albumin 2.6(L) 3.4 - 5.0 gm/dL 02/14/2024 4:32 PM CDT [facility] Phosphorus 5.2(H) 2.3 - 4.7 mg/dL 02/14/2024 4:32 PM CDT [facility] eGFR by CKD-EPI 89(L) >=90 mL/min/1.7 3 m2 02/14/2024 4:32 PM CDT [facility] Blood BLOOD SPECIMEN / Unknown Venipuncture / Unknown 02/14/2024 4:10 PM CDT 02/14/2024 4:15 PM CDT Andrea Zamorano MD LAB - CHEMISTRY ORDAnirudh RAZO Performing Organization Address [facility] Co de Phone Number [facility] [id number] [place] [phone] * SLIDE SCAN HEMATOLOGY (02/13/2024 4:29 AM CDT) Only the most recent of5 resultswithin the time period is included. RBC Morphology NORMAL 02/13/2024 5:32 AM CDT [facility] Platelet Morphology NORMAL 02/13/2024 5:32 AM CDT [facility] Blood BLOOD SPECIMEN / Unknown Venipuncture / Unknown 02/13/2024 4:29 AM CDT 02/13/2024 4:44 AM CDT Chuy Siegel DO LAB - HEMATOLOGY ORD CELIA Performing Organization Address [facility] Co de Phone Number [facility] [address] [place] [phone] * AMMONIA (02/08/2024 11:53 AM CDT) Ammonia 33 18 - 72 umol/L 02/08/2024 12:16 PM CDT [facility] Blood BLOOD SPECIMEN / Unknown Venipuncture / Unknown 02/08/2024 11:53 AM CDT 02/08/2024 12:02 PM CDT Chuy Siegel DO LAB - CHEMISTRY CHRISTIAN RAZO Performing Organization Address [facility] Co de Phone Number [facility] [address] [place] [address] * (ABNORMAL) HEPATIC FUNCTION PANEL (02/08/2024 5:26 AM CDT) Alkaline Phosphatase 193(H) 40 - 150 U/L 02/08/2024 9:54 AM CDT [facility] ALT 73(H) 0 - 55 U/L 02/08/2024 9:54 AM CDT [facility] AST 62(H) 5 - 34 U/L 02/08/2024 9:54 AM CDT [facility] Protein Total 8.0 6.4 - 8.3 gm/dL 02/08/2024 9:54 AM CDT [facility] Albumin 2.1(L) 3.4 - 5.0 gm/dL 02/08/2024 9:54 AM CDT [facility] Bilirubin Total 0.3 0.2 - 1.2 mg/dL 02/08/2024 9:54 AM CDT [facility] Bilirubin Direct 0.163 0.10 - 0.50 mg/dL 02/08/2024 9:54 AM CDT [facility] Blood BLOOD SPECIMEN / Unknown Line Draw / Unknown 02/08/2024 5:26 AM CDT 02/08/2024 5:37 AM CDT Chuy Siegel DO LAB - CHEMISTRY SARAHE DUNG [facility] [address] [place] [address] * (ABNORMAL) URINALYSIS REFLEX TO MICROSCOPIC NO CULTURE (02/06/2024 11:40 AM CDT) Color UA Beckie(A) Straw, Yellow 02/06/2024 1:03 PM CDT [facility] Clarity UA Cloudy(A) Clear 02/06/2024 1:03 PM CDT [facility] Glucose UA Negative Negative 02/06/2024 1:03 PM CDT [facility] Bilirubin UA Negative Negative 02/06/2024 1:03 PM CDT [facility] Ketone UA Negative Negative 02/06/2024 1:03 PM CDT [facility] Specific [place] UA 1.025 1.005 - 1.030 02/06/2024 1:03 PM CDT [facility] Blood UA 3+(A) Negative 02/06/2024 1:03 PM CDT [facility] pH UA 5.0 5.0 - 8.0 pH 02/06/2024 1:03 PM CDT [facility] Protein UA 2+(A) Negative 02/06/2024 1:03 PM CDT [facility] Urobilinogen UA 2.0(A) Negative mg/dL 02/06/2024 1:03 PM CDT [facility] Nitrite UA Negative Negative 02/06/2024 1:03 PM CDT [facility] Leukocyte UA Trace(A) Negative 02/06/2024 1:03 PM CDT [facility] Urine Microscopy Urine microscopy to follow 02/06/2024 1:03 PM CDT [facility] Urine URINE SPECIMEN OBTAINED VIA [employer] URINARY CATHETER / Unknown Collection / Unknown 02/06/2024 11:40 AM CDT 02/06/2024 12:56 PM CDT Narrative [facility] - 02/06/2024 1:03 PM CDT Kel Jacome MD LAB - URINALYSIS ORD ERABLES Performing Organization Address City/[facility]/ZIP Co de Phone Number [facility] [id number] [place] [phone] * (ABNORMAL) URINE MICROSCOPIC ONLY (02/06/2024 11:40 AM CDT) Pathologist [facility] RBC UA >100(A) 0 - 5 # /hpf 02/06/2024 1:30 PM CDT [facility] WBC UA 11-20(A) 0 - 5 # /hpf 02/06/2024 1:30 PM CDT [facility] Hyaline Casts None Seen 0 - 2 /LPF 02/06/2024 1:30 PM CDT [facility] Bacteria UA 2+(A) None Seen 02/06/2024 1:30 PM CDT [facility] Squamous Epithelial Cells 6-10(A) 0 - 5 /hpf 02/06/2024 1:30 PM CDT [facility] Urine URINE SPECIMEN OBTAINED VIA [employer] URINARY CATHETER / Unknown Collection / Unknown 02/06/2024 11:40 AM CDT 02/06/2024 12:56 PM CDT Kel Jacome MD LAB - URINALYSIS ORD ERABLES Performing Organization Address [facility] Co de Phone Number [facility] [address] [place] [phone] * MRSA DNA PCR (02/06/2024 11:33 AM CDT) Only the most recent of2 resultswithin the time period is included. Pathologist [facility] MRSA DNA by PCR Not detected Not detected 02/07/2024 12:39 AM CDT [facility] Microbiology SPECIMEN FROM NASAL FOSSAE / Unknown Collection / Unknown 02/06/2024 11:33 AM CDT 02/06/2024 12:56 PM CDT Narrative [facility] - 02/07/2024 12:39 AM CDT Methicillin-resistant Staphylococcus aureus (MRSA) DNA is not detected (presumed not colonized with MRSA). Kel Jacome MD LAB - MICROBIOLOGY O RDERABLES [facility] [address] [place] [address], [facility] [phone] * (ABNORMAL) CULTURE SPUTUM+GRAM STAIN (02/06/2024 11:33 AM CDT) Only the most recent of2 resultswithin the time period is included. Pathologist [facility] Culture Moderate Staphylococcus aureus(A) VALERIA 02/08/2024 10:43 PM T [facility] Comment:Staphylococcus aureu s methicillin-susceptible (MSSA) detected by penicillin binding protein immunoassay. Culture Rare normal oropharyngeal tae VALERIA 02/08/2024 10:43 PM CDT [facility] Gram Stain <10 per low power field Squamous epithelial cells 02/08/2024 10:43 PM T [facility] Gram Stain >= 25 per low power field Polymorphonuclear cells 02/08/2024 10:43 PM T [facility] Gram Stain Moderate Gram-positive cocci 02/08/2024 10:43 PM T [facility] Microbiology LOWER RESPIRATORY FLUID SPECIMEN / Unknown Collection / Unknown 02/06/2024 11:33 AM CDT 02/06/2024 12:56 PM CDT Narrative Organism Antibiotic Method Susceptibility Staphylococcus aureus Cefazolin VALERIA Susceptible Staphylococcus aureus Clindamycin VALERIA 0.25 ug/mL: Susceptible Staphylococcus aureus Doxycycline VALERIA <=0.5 ug/mL: Susceptible Staphylococcus aureus Inducible Clindamy adriana Resistance VALERIA NEG ug/mL: Neg Staphylococcus aureus Oxacillin VALERIA <=0.25 ug/mL: Susceptible Staphylococcus aureus Trimethoprim-sulfa methox azole VALERIA <=10 ug/mL: Susceptible Staphylococcus aureus Vancomycin VALERIA <=0.5 ug/mL: Susceptible Comment: Staphylococcus sensitivity to oxacillin predicts susceptibility for nafcillin, ampicillin/sulbactam, amoxicillin/clavulanate, piperacillin/tazobactam, all cephalosporins (except ceftazidime, ceftazidime/avibactam, ceftolozane/tazobactam), and all carbapenems. Kel Jacome MD LAB - MICROBIOLOGY O АННА Performing Organization Address [facility] Co de Phone Number [facility] MICROBIOLOGY [address] [place] [address], [facility] [phone] * CULTURE BLOOD (02/06/2024 11:31 AM CDT) Only the most recent of6 resultswithin the time period is included. Pathologist [facility] Culture No growth day 5 VALERIA 02/11/2024 1:01 PM CDT [facility] MICROBIOLOGY Blood PERIPHERAL BLOOD / Unknown Venipuncture / Unknown 02/06/2024 11:31 AM CDT 02/06/2024 11:39 AM CDT Kel Jacome MD LAB - MICROBIOLOGY O АННА Performing Organization Address [facility] de Phone Number [facility] [address] [place] [address], [facility] [phone] * (ABNORMAL) TRIGLYCERIDES BLOOD (02/04/2024 3:28 AM CDT) Pathologist [facility] Triglycerides 190(H) <150 mg/dL 02/04/2024 4:07 AM CDT [facility] Blood BLOOD SPECIMEN / Unknown Line Draw / Unknown 02/04/2024 3:28 AM CDT 02/04/2024 3:48 AM CDT Kel Jacome MD LAB - CHEMISTRY CHRISTIAN RAZO Performing Organization Address [facility] Co de Phone Number [facility] [address] [place] [address] * (ABNORMAL) DIFFERENTIAL MANUAL (02/03/2024 10:01 AM CDT) Only the most recent of2 resultswithin the time period is included. Neutrophil % 56 41 - 74 % 02/03/2024 10:56 AM CDT [facility] Lymphocyte % 28 17 - 47 % 02/03/2024 10:56 AM CDT [facility] Monocyte % 13(H) 3 - 11 % 02/03/2024 10:56 AM CDT [facility] Eosinophil % 3 0 - 7 % 02/03/2024 10:56 AM CDT [facility] Neutrophil Absolute 8.51(H) 1.60 - 7.50 x10E9/L 02/03/2024 10:56 AM CDT [facility] Lymphocyte Absolute 4.26 1.00 - 4.40 x10E9/L 02/03/2024 10:56 AM CDT [facility] Monocyte Absolute 1.98(H) 0.15 - 1.00 x10E9/L 02/03/2024 10:56 AM CDT [facility] Eosinophil Absolute 0.46 0.00 - 0.60 x10E9/L 02/03/2024 10:56 AM CDT [facility] RBC Morphology RED CELL INDICIES CONFIRMED 02/03/2024 10:56 AM CDT [facility] Blood BLOOD SPECIMEN / Unknown Venipuncture / Unknown 02/03/2024 10:01 AM CDT 02/03/2024 10:19 AM CDT Chuy Siegel DO LAB - HEMATOLOGY ORD ERABLES [facility] [address] [place] [address] * XR CHEST POST ETT (02/02/2024 5:23 PM CDT) Only the most recent of2 resultswithin the time period is included. Anatomical Region Laterality Modality Chest Radiographic Love ging 02/02/2024 5:25 PM CDT Narrative 02/02/2024 5:27 PM CDT Portable Chest AP History: Altered mental status.. COMPARISON: Today. FINDINGS: ET tube well-positioned terminating mid upper trachea. Left IJ central venous catheter in place terminating superior cavoatrial junction. Cardiomegaly and median sternotomy. Lungs are clear. No pleural effusion or pneumothorax seen. > Interpreting Provider: Av Blackwood MD on 02/02/2024 5:27 PM Procedure Note Av Blackwood MD - 02/04/2024 Portable Chest AP History: Altered mental status.. COMPARISON: Today. FINDINGS: ET tube well-positioned terminating mid upper trachea. Left IJ central venous catheter in place terminating superior cavoatrialjunction. Cardiomegaly and median sternotomy. Lungs are clear. No pleural effusionor pneumothorax seen. > Interpreting Provider: Av Blackwood MD on 02/02/2024 5:27 PM Kel Jacome MD DIAGNOSTIC IMAGING O RDERABLES * (ABNORMAL) BLOOD GASES ARTERIAL (02/02/2024 4:09 PM CDT) Only the most recent of9 resultswithin the time period is included. pH Arterial 7.55(H) 7.35 - 7.45 pH 02/02/2024 4:37 PM CDT [facility] pO2 Arterial 394(H) 80 - 100 mmHg 02/02/2024 4:37 PM CDT [facility] pCO2 Arterial 32(L) 35 - 45 mmHg 02/02/2024 4:37 PM CDT [facility] HCO3 Arterial 28.0(H) 22.0 - 26.0 mmol/L 02/02/2024 4:37 PM CDT [facility] BE Arterial 5.9(H) -2.0 - 2.0 mmol/L 02/02/2024 4:37 PM CDT [facility] O2 Saturation Arterial 100 90 - 100 % 02/02/2024 4:37 PM CDT [facility] Kevin's Test Yes 02/02/2024 4:37 PM CDT [facility] Sample Site Left RA 02/02/2024 4:37 PM CDT [facility] Mode APVcmv 02/02/2024 4:37 PM CDT [facility] FI O2 100.0 % 02/02/2024 4:37 PM CDT [facility] Mechanical Tidal Volume (mL) 520 02/02/2024 4:37 PM CDT [facility] Mechanical Respiratory Rate (bpm) 18 02/02/2024 4:37 PM CDT [facility] PEEP (cmH2O) 5 02/02/2024 4:37 PM CDT [facility] Blood, arterial ARTERIAL BLOOD SPECIMEN / Unknown 02/02/2024 4:09 PM CDT 02/02/2024 4:09 PM CDT Kel Jacome MD LAB - BLOOD GASES OR DERABLES [facility] [id number] [place] [id number] [phone] * EGD WITH PEG PLACEMENT (01/30/2024 6:35 AM CDT) Report Endoscopy POC _ Patient Name: Raza Vazquez ??Procedure Date: 01/30/2024 6:35 AM ? Date of : 1960 ? Admit Type: Inpatient Age: 63 ? Gender: Male Attending MD: Jeff Ruffin MD, ? _ Procedure: ? Upper GI endoscopy Indications: ? Place PEG because patient is unable to eat Providers: ? Jeff Ruffin MD (Doctor) Referring MD: ?Sylvain Daniels MD (Referring MD) Medicines: ? Monitored Anesthesia Care Complications: ? No immediate complications. _ Estimated Blood Loss: ? Estimated blood loss: none. Procedure: ? After obtaining informed consent, the endoscope was ? passed under direct vision. Throughout the procedure, ? the patient's blood pressure, pulse, and oxygen ? saturations were monitored continuously. The Endoscope ? was introduced through the mouth, and advanced to the ? second part of duodenum. The upper GI endoscopy was ? accomplished without difficulty. The patient tolerated ? the procedure well. ? Findings: ? The esophagus was normal. ? The entire examined stomach was normal. Placement of an externally ? removable PEG with no T-fasteners was successfully completed. The ? external bumper was at the 4.0 cm marking on the tube. Estimated blood ? loss was minimal. ? The examined duodenum was normal. _ ? Impression: ?- Normal esophagus. ? - Normal stomach. ? - Normal examined duodenum. ? - An externally removable PEG placement was ? successfully completed. ? - No specimens collected. Recommendation: ?- Can use PEG for medication right away. ? Can start tube feeds in 2 hours. Aspiration ? precautions. Keep head of bed elevated 30 degrees. ? Check residuals every 6-8 hours and hold tube feed if ? residuals more then 100 ml. ? Watch G tube site for bleeding of drainage. ? Binder over PEG if patient is likely to pull at the g ? tube ? Procedure Code(s): ? --- Professional --- ? 61317, Esophagogastrodu odenoscopy, flexible, transoral; with directed ? placement of percutaneous gastrostomy tube ? --- Technical --- ? 59967, Esophagogastrodu odenoscopy, flexible, transoral; with directed ? placement of percutaneous gastrostomy tube Diagnosis Code(s): ? --- Professional --- ? Z43.1, Encounter for attention to gastrostomy ? R63.39, Other feeding difficulties ? --- Technical --- ? Z43.1, Encounter for attention to gastrostomy ? R63.39, Other feeding difficulties CPT copyright 2020 [employer]. All rights reserved. The codes documented in this report are preliminary and upon marketing project specialist review may be revised to meet current compliance requirements. Dr. Jeff Ruffin MD Jeff Ruffin MD 01/30/2024 3:19:32 PM This report has been signed electronically. Number of Addenda: 0 Note Initiated On: 01/30/2024 6:35 AM [facility] 01/30/2024 6:35 AM CDT Jeff Ruffin MD GI PROCEDURE ORDERAB [place] [address] * (ABNORMAL) BLOOD GASES+LYTES ARTERIAL (01/27/2024 12:33 PM CDT) pH Arterial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 Number [facility] * HEPATITIS C AB W/RFLX TO HCV RNA QN PCR (07/23/2020 6:49 AM CDT) Hepatitis C Antibody NON-REACTI VE NON-REACT ELIDA [facility] Signal to Cut-Off 0.09 <1.00 [facility] Comment: HCV antibody was non-reactive. There is no laboratory evidence of HCV infection. In most cases, no further action is required. However, if recent HCV exposure is suspected, a test for HCV RNA (test code 86565) is suggested. For additional information please refer to http://education.Berrybenka/faq/IDW21h9 (This link is being provided for informational/ educational purposes only.) Test Performed at: [facility] [place], [place] ??[id number] EH PURVIS DO,MPH 07/23/2020 6:49 AM CDT 07/23/2020 6:51 AM CDT Lisy Olmedo MD LAB - TILE HELPER RY ORDERABLES Performing Organization Address [facility] Co de Phone Number [facility] [address] [place] [address] * RPR W REFLEX TO TITER+CONFIRM (07/23/2020 6:49 AM CDT) Pathologist [facility] RPR NON-REACTI VE NON-REACT ELIDA [facility] Comment: REPORT COMMENT: FASTING:YES Test Performed at: [facility] [place], [place] ??[address] EH PURVIS DO,MPH 07/23/2020 6:49 AM CDT 07/23/2020 6:51 AM CDT Lisy Olmedo MD LAB - TILE HELPER RY ORDERABLES Performing Organization Address [facility] Co de Phone Number [facility] [address] [place] [address] * HIV-1 HIV-2 ANTIBODY + HIV P24 AG PANEL (07/23/2020 6:49 AM CDT) Pathologist [facility] HIV Screen 4th Generation w Reflex NON-REACT ELIDA NON-REACT ELIDA [facility] Comment: HIV-1 antigen and HIV-1/HIV-2 antibodies were not detected. There is no laboratory evidence of HIV infection. PLEASE NOTE: This information has been disclosed to you from records whose confidentiality may be protected by state law. ??If your state requires such protection, then the state law prohibits you from making any further disclosure of the information without the specific written consent of the person to whom it pertains, or as otherwise permitted by law. A general authorization for the release of medical or other information is NOT sufficient for this purpose. ?? For additional information please refer to http://education.Berrybenka/faq/SGC279 (This link is being provided for informational/ educational purposes only.) The performance of this assay has not been clinically validated in patients less than 2 years old. Test Performed at: [facility] [id number] [place], [place] ??[address] EH PURVIS DO,MPH 07/23/2020 6:49 AM CDT 07/23/2020 6:51 AM CDT Lisy Olmedo MD LAB - TILE HELPER RY ORDERABLES Performing Organization Address City/State/[facility] Co de Phone Number [facility] [address] [place] [address] * MICROALB/CREAT RATIO URINE RANDOM PANEL (07/23/2020 6:49 AM CDT) Only the most recent of3 resultswithin the time period is included. [facility] Creatinine Urine 270 20 - 320 mg/dL [facility] Microalbumin Urine 6.0 mg/dL [facility] Comment: Reference Range Not established Microalbumin/Creat inine Ratio 22 <30 mcg/mg creat [facility] Comment: The ADA defines abnormalities in albumin excretion as follows: Category ? Result (mcg/mg creatinine) Normal ?<30 Microalbuminuria ? 30-299 Clinical albuminuria ?? > OR = 300 The ADA recommends that at least two of three specimens collected within a 3-6 month period be abnormal before considering a patient to be within a diagnostic category. Test Performed at: [facility] [address] [place], [place] ??[phone] EH PURVIS DO,MPH 07/23/2020 6:49 AM CDT 07/23/2020 6:51 AM CDT Lisy Olmedo MD LAB - URINE C HEMISTRY ORDERABLES Performing Organization Address [facility] de Phone Number [facility] [address] [place] [address] * CHLAMYDIA + GC AMPLIFIED PROBE (07/23/2020 6:49 AM CDT) Chlamydia trachomatis RNA NOT DETECTED NOT DETECTED [facility] RNA NOT DETECTED NOT DETECTED [facility] Please Note [facility] Comment: The analytical performance characteristics of this assay, when used to test SurePath(TM) specimens have been determined by [employer] [facility]. The modifications have not been cleared or approved by the FDA. This assay has been validated pursuant to the CLIA regulations and is used for clinical purposes. For additional information, please refer to https://education.Berrybenka/faq/TMB754 (This link is being provided for information/ educational purposes only.) Test Performed at: [facility] [id number] [place], [place] ??[phone] EH PURVIS DO,MPH 07/23/2020 6:49 AM CDT 07/23/2020 6:51 AM CDT Lisy Olmedo MD LAB - MICROBI OLOGY ORDERABLES Performing Organization Address [facility] de Phone Number [facility] [address] [place] [address] * CARDIAC REHAB (06/14/2020 11:50 AM CDT) Only the most recent of5 resultswithin the time period is included. Narrative 06/14/2020 11:50 AM CDT Ordered by an unspecified provider. Scanned Document SCANNING ONLY * IMAGING RADIOLOGY XRAY RESULTS ORDER (12/24/2019 6:49 AM CDT) Anatomical Region Laterality Modality Other Narrative 12/24/2019 6:49 AM CDT Ordered by an unspecified provider. Scanned Document IMAGING * CT ANGIO AORTIC ROOT (02/11/2019 5:56 PM CDT) Anatomical Region Laterality Modality Chest Computed Tomogra phy 02/11/2019 7:06 PM CDT Impressions 02/12/2019 4:18 PM CDT IMPRESSION: 1. Ectatic ascending aorta with vascular measurements as above. 2. Postoperative appearance from median sternotomy. Dictated by Yeyo Birmingham MD (radiology ct technologist). I, Dr. Lobito VAZQUEZ M.D. have personally reviewed and interpreted this examination/study. This report was electronically signed by Lobito VAZQUEZ M.D. ??on 02/12/2019 4:18 PM . Narrative 02/12/2019 4:18 PM CDT EXAMINATION: Computed tomography (CT) of the chest, abdomen, and pelvis with contrast DATE: 02/11/2019 HISTORY: 58-year-old male with concern for aortic root dilatation TECHNIQUE: CT angiography of the chest, abdomen, and pelvis was performed following the uneventful administration of 100 mL of Isoview 370 intravenous contrast according to an aortic root protocol. COMPARISON: CT chest without contrast dated 12/21/2017 FINDINGS: Vascular: The ascending aorta measures 30.2 cm at the annulus, 4.2 cm at the sinus of Valsalva, 3.7 cm at the sinotubular junction, and 4.1 cm TV x 4.3 cm AP at the level of the main pulmonary artery. The main pulmonary artery measures 3.2 cm TV. These measurements have increased from approximate measurements on prior CT chest noncontrast dated 12/21/2017 with an ascending aortic measurement of 3.8 cm AP by 3.3 cm TV at the level of the main pulmonary artery. The descending thoracic aorta and abdominal aorta are normal in course and caliber. A 2 vessel bovine aortic arch is present. Mild atherosclerotic calcifications are seen in the aorta. The main pulmonary artery is normal in course and caliber. The coronary arteries are atherosclerotic. Chest: The imaged portion of the lungs are clear of focal consolidation, pleural effusion, or pneumothorax. No pleural thickening is seen. No suspicious pulmonary nodules are identified. The trachea is patent. Cardiac size is within normal limits. No pericardial effusion is present. No mediastinal, hilar, or axillary lymphadenopathy is seen. Few calcified subcarinal and left hilar lymph nodes are present. Minimal retrosternal soft tissue stranding represents postoperative changes from sternotomy. The imaged portions of the liver, stomach, spleen, and large bowel are normal without acute abnormality. Bone windows demonstrate no suspicious lytic or blastic lesions. Postoperative changes from a median sternotomy are partially imaged. The imaged sternal wires are well aligned and intact. Procedure Note Niyah Vazquez MD - 02/12/2019 EXAMINATION: Computed tomography (CT) of the chest, abdomen, and pelvis with contrast DATE: 02/11/2019 HISTORY: 58-year-old male with concern for aortic root dilatation TECHNIQUE: CT angiography of the chest, abdomen, and pelvis wasperformed following the uneventful administration of 100 mL of Isoview 370 intravenous contrast according to an aortic root protocol. COMPARISON: CT chest without contrast dated 12/21/2017 FINDINGS: Vascular: The ascending aorta measures 30.2 cm at the annulus, 4.2 cm at the sinus of Valsalva, 3.7 cm at the sinotubular junction, and 4.1 cm TV x 4.3 cmAP at the level of the main pulmonary artery. The main pulmonary artery measures 3.2 cm TV. These measurements have increased from approximate measurements on prior CT chest noncontrast dated 12/21/2017 with an ascending aortic measurement of 3.8 cm AP by 3.3 cm TV at the level ofthe main pulmonary artery. The descending thoracic aorta and abdominal aorta are normal in courseand caliber. A 2 vessel bovine aortic arch is present. Mild atherosclerotic calcifications are seen in the aorta. The main pulmonary artery isnormal in course and caliber. The coronary arteries are atherosclerotic. Chest: The imaged portion of the lungs are clear of focal consolidation,pleural effusion, or pneumothorax. No pleural thickening is seen. No suspicious pulmonary nodules are identified. The trachea is patent. Cardiac size is within normal limits. No pericardial effusion ispresent. No mediastinal, hilar, or axillary lymphadenopathy is seen. Fewcalcified subcarinal and left hilar lymph nodes are present. Minimal retrosternal soft tissue stranding represents postoperative changes from sternotomy. The imaged portions of the liver, stomach, spleen, and large bowel are normal without acute abnormality. Bone windows demonstrate no suspicious lytic or blastic lesions. Postoperative changes from a median sternotomy are partially imaged. The imaged sternal wires are well aligned and intact. IMPRESSION: 1. Ectatic ascending aorta with vascular measurements as above. 2. Postoperative appearance from median sternotomy. Dictated by Yeyo Birmingham MD (radiology ct technologist). I, Dr. Lobito VAZQUEZ M.D. have personally reviewed and interpretedthis examination/study. This report was electronically signed by Lobito VAZQUEZ M.D. on 02/12/2019 4:18 PM . Nehemias Dennis MD CT ORDERABLES * CREATININE BLOOD - POCT (IP) [facility] (02/11/2019 4:58 PM CDT) Creatinine POCT 1.20 0.3 - 1.3 mg/dL [facility] eGFR POCT 60 60 ml/min [facility] Blood BLOOD SPECIMEN / Unknown 02/11/2019 4:58 PM CDT Nehemias Dennis MD LAB - POINT OF CAR E ORDERABLES [facility] [address] [phone] * NM MYOCARD PERFUSION SPECT STRESS AND REST (09/06/2018 12:52 PM RESEARCH PROGRAM ASSISTANT) Anatomical Region Laterality Modality Chest Nuclear Medicine 09/06/2018 1:20 PM RESEARCH PROGRAM ASSISTANT Narrative 09/06/2018 1:22 PM RESEARCH PROGRAM ASSISTANT NM MYOCARDIAL SPECT SCAN Indications for examination: Substernal chest pain. Coronary artery disease, previous bypass. Hypertension. A resting study is carried out with ??10 ??mCi Tc Myoview. Patient is then injected with 0.4 mg lexiscan followed by 30 mCi Tc Myoview. A preliminary stress test report indicates no report currently available. No fixed or reversible perfusion defects are demonstrated. Left ventricular ejection fraction is 49%. There is mild global hypokinesis. Left ventricular chamber is mildly dilated at stress and at rest. CONCLUSION: No focal fixed or reversible perfusion defect. Left ventricular ejection fraction 49% with mild global hypokinesis. Reading Radiologist: Av Hernadez MD on 09/06/2018 at 1:22 PM Procedure Note Av Hernadez MD - 09/06/2018 NM MYOCARDIAL SPECT SCAN Indications for examination: Substernal chest pain. Coronary artery disease, previous bypass. Hypertension. A resting study is carried out with 10 mCi Tc Myoview. Patient is then injected with 0.4 mg lexiscan followed by 30 mCi Tc Myoview. A preliminary stress test report indicates no report currently available. No fixed or reversible perfusion defects are demonstrated. Left ventricular ejection fraction is 49%. There is mild global hypokinesis. Left ventricular chamber is mildly dilated at stress and at rest. CONCLUSION: No focal fixed or reversible perfusion defect. Left ventricular ejection fraction 49% with mild global hypokinesis. Reading Radiologist: Av Hernadez MD on 09/06/2018 at 1:22 PM Silvia Kidd APRN-[facility] ORDERABLES * STRESS TEST LEXISCAN (NUCLEAR) (09/06/2018 11:47 AM RESEARCH PROGRAM ASSISTANT) Stress Test Summary For full formatted report, please see the report link in the order. Acquisition Time: 2018-09-06 ??11:47:08 Total Exercise Time: 00:01:09 Test Indications: CHEST PAIN Medications: Protocol: LEXISCAN ? Max HR: 091 BPM ??56% of ??Pred: 161 BPM Max BP: 175/109 mmHG Max Work Load: 1.0 METS Reason for Termination: Resting ECG: Sinus Rhythm T wave inversion Functional Capacity: HR Response to Exercise: BP Resoonse to Exercise: Chest Pain: No Chest Pain Arrhythmias: No Arrhythmias ST Changes: No Changes From Baseline Overall Impression: Findings to be correlated w/imaging report Diagnosis: Confirmed by PRESTON HEBERT MD ([id number]) on 09/06/2018 12:02:51 PM Attending Physician: Referred By: ? Overread By: PRESTON HEBERT MD [facility] STRESS 09/06/2018 11:4 7 AM RESEARCH PROGRAM ASSISTANT 09/06/2018 12:02 PM RESEARCH PROGRAM ASSISTANT Silvia Kidd APRN-CARPENTER ASSEMBLER CARDIAC SERVICES O RDERABLES DP STRESS * ECHOCARDIOGRAM 2D WITH DOPPLER (09/06/2018 10:15 AM RESEARCH PROGRAM ASSISTANT) 09/06/2018 10:1 5 AM RESEARCH PROGRAM ASSISTANT Narrative [facility] CARDIAC SERVICES - 09/07/2018 9:13 AM RESEARCH PROGRAM ASSISTANT [address] [address] Transthoracic Echocardiogram 2D, M-mode, Doppler, and Color Doppler Patient: RAZA VAZQUEZ MR number: [id number] Height: 75 in Weight: 330 lb BSA: 2.72 m?? Study date: 06-Sep-2018 : 1960 Age: 57 years Gender: Male Race: Black Allergies: LISINOPRIL, PENICILLINS, PENICILLIN V Diagnoses: R07.89 - Other chest pain Reading Physician: ??Jose Jonas MD Referring Physician: ??Jose Jonas MD BORDER MEASURER: ??Mirna Llanos [facility] Cardiology Group: ??[facility] Summary: - ??History: - ??CAD - ??Left ventricle: - ??Systolic function was at the lower limits of normal. Ejection fraction was estimated to be 50 %. - ??There were no regional wall motion abnormalities. - ??Wall thickness was normal. Indications: Evaluate chest pain. History: Prior history: CAD Risk factors: hypertension. Diabetes. Procedure: The study was performed in the [facility]. This was a routine study. The transthoracic approach was used. The study included complete 2D imaging, M-mode, complete spectral Doppler, and color Doppler. Systolic blood pressure was 145 mmHg. Diastolic blood pressure was 106 mmHg. Intravenous contrast (Definity) was administered. Left ventricle: Size was normal. Systolic function was at the lower limits of normal. Ejection fraction was estimated to be 50 %. There were no regional wall motion abnormalities. Wall thickness was normal. Aortic valve: The valve was trileaflet. Leaflets exhibited normal thickness and normal cuspal separation. Doppler: There was no stenosis. There was no regurgitation. Aorta: The root exhibited normal size. Mitral valve: Valve structure was normal. There was normal leaflet separation. Doppler: There was no evidence for stenosis. There was no regurgitation. Left atrium: Size was normal. Right ventricle: The size was normal. Systolic function was normal. Wall thickness was normal. Pulmonic valve: Leaflets exhibited normal thickness, no calcification, and normal cuspal separation. Doppler: There was no regurgitation. Pulmonary artery: The size was normal. Doppler: Systolic pressure was within the normal range. Tricuspid valve: The valve structure was normal. There was normal leaflet separation. Doppler: There was no evidence for tricuspid stenosis. There was no regurgitation. Right atrium: Size was normal. Pericardium: The pericardium was normal in appearance. System measurement tables 2D LVOT Diam: 2.4 cm IVSd: 1.7 cm LVEDV MOD A4C: 170.7 ml LVESV MOD A4C: 79.9 ml LVIDd: 5.1 cm LVIDs: 3.9 cm LVPWd: 1.7 cm CW PV Vmax: 1 m/s AV VTI: 23.5 cm AV Vmax: 1.2 m/s AV maxP.5 mmHg AV meanP.9 mmHg PV maxP mmHg MM LA Diam: 3.8 cm Ao Diam: 4.4 cm PW LVOT Vmax: 1 m/s Lateral E/e': 10.5 Septal E/e': 18.9 ELISSA (VTI): 4.1 cm2 ELISSA Vmax: 4.1 cm2 LVOT VTI: 21.2 cm Lateral e': 0.1 m/s MV A Richard: 0.7 m/s MV Dec [place]: 4.6 m/s2 MV E Richard: 0.9 m/s MV E/A Ratio: 1.4 Septal e': 0 m/s Prepared and signed by Jose Jonas MD Signed 07-Sep-2018 09:12:59 Procedure Note Unknown, Provider, - 09/07/[address] [address] Transthoracic Echocardiogram 2D, M-mode, Doppler, and Color Doppler Patient: RAZA VAZQUEZ MR number: [id number] Height: 75 in Weight: 330 lb BSA: 2.72 m?? Study date: 06-Sep-2018 : 1960 Age: 57 years Gender: Male Race: Black Allergies: LISINOPRIL, PENICILLINS, PENICILLIN V Diagnoses: R07.89 - Other chest pain Reading Physician: Jose Jonas MD Referring Physician: Jose Jonas MD BORDER MEASURER: Mirna Llanos [facility] Cardiology Group: [facility] Summary: - History: - CAD - Left ventricle: - Systolic function was at the lower limits of normal. Ejection fraction was estimated to be 50 %. - There were no regional wall motion abnormalities. - Wall thickness was normal. Indications: Evaluate chest pain. History: Prior history: CAD Risk factors: hypertension. Diabetes. Procedure: The study was performed in the [facility]. This was a routine study. The transthoracic approach was used. The study included complete 2D imaging, M-mode, complete spectral Doppler, and color Doppler. Systolic blood pressure was 145 mmHg. Diastolic blood pressure was 106 mmHg. Intravenous contrast (Definity) was administered. Left ventricle: Size was normal. Systolic function was at the lower limits of normal. Ejection fraction was estimated to be 50 %. There were no regional wall motion abnormalities. Wall thickness was normal. Aortic valve: The valve was trileaflet. Leaflets exhibited normal thickness and normal cuspal separation. Doppler: There was no stenosis. There was no regurgitation. Aorta: The root exhibited normal size. Mitral valve: Valve structure was normal. There was normal leaflet separation. Doppler: There was no evidence for stenosis. There was no regurgitation. Left atrium: Size was normal. Right ventricle: The size was normal. Systolic function was normal. Wall thickness was normal. Pulmonic valve: Leaflets exhibited normal thickness, no calcification, and normal cuspal separation. Doppler: There was no regurgitation. Pulmonary artery: The size was normal. Doppler: Systolic pressure was within the normal range. Tricuspid valve: The valve structure was normal. There was normal leaflet separation. Doppler: There was no evidence for tricuspid stenosis. There was no regurgitation. Right atrium: Size was normal. Pericardium: The pericardium was normal in appearance. System measurement tables 2D LVOT Diam: 2.4 cm IVSd: 1.7 cm LVEDV MOD A4C: 170.7 ml LVESV MOD A4C: 79.9 ml LVIDd: 5.1 cm LVIDs: 3.9 cm LVPWd: 1.7 cm CW PV Vmax: 1 m/s AV VTI: 23.5 cm AV Vmax: 1.2 m/s AV maxP.5 mmHg AV meanP.9 mmHg PV maxP mmHg MM LA Diam: 3.8 cm Ao Diam: 4.4 cm PW LVOT Vmax: 1 m/s Lateral E/e': 10.5 Septal E/e': 18.9 ELISSA (VTI): 4.1 cm2 ELISSA Vmax: 4.1 cm2 LVOT VTI: 21.2 cm Lateral e': 0.1 m/s MV A Richard: 0.7 m/s MV Dec [place]: 4.6 m/s2 MV E Richard: 0.9 m/s MV E/A Ratio: 1.4 Septal e': 0 m/s Prepared and signed by Jose Jonas MD Signed 07-Sep-2018 09:12:59 Sumi Garcia MD ECHO ORDERABLES [facility] CARDIAC SERVICES * CARDIAC STRESS TEST ORDER (04/22/2018 11:50 AM CDT) Narrative 04/22/2018 11:50 AM CDT Ordered by an unspecified provider. Scanned Document CARDIAC SERVICES ORD ERABLES * CARDIAC ECHOCARDIOGRAM COMPLETE ORDER (03/28/2018 3:29 PM CDT) Narrative 03/28/2018 3:29 PM CDT Ordered by an unspecified provider. Scanned Document ECHO ORDERABLES * XR CHEST 1VW (01/29/2018 6:04 AM CDT) Only the most recent of5 resultswithin the time period is included. Anatomical Region Laterality Modality Chest Radiographic Love ging 01/29/2018 11:2 6 AM CDT Impressions 01/29/2018 1:35 PM CDT FINDINGS/IMPRESSION: Median sternotomy wires and mediastinal surgical clips are unchanged. Mild bibasilar opacities representing airspace disease and/or atelectasis have mildly increased, left greater than right. No pleural effusion or pneumothorax is identified. The cardiomediastinal silhouette is borderline large for this AP view. The visible bony thorax is intact. Dictated by Yeyo Birmingham MD (radiology ct technologist). Dr. SAL Jules have personally reviewed and interpreted this examination/study. This report was electronically signed by SAL DOHERTY ??on 01/29/2018 1:35 PM . 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 Mild bibasilar opacities representing airspace disease and/oratelectasis have mildly increased, left greater than right. No pleural effusion or pneumothorax is identified. The cardiomediastinal silhouette isborderline large for this AP view. The visible bony thorax is intact. Dictated by Yeyo Birmingham MD (radiology ct technologist). Dr. SAL Jules have personally reviewed and interpreted this examination/study. This report was electronically signed by SLA DOHERTY on 01/29/2018 1:35 PM . Rosendo Fernandez FRETTED INSTRUMENTS INSPECTOR-CARPENTER ASSEMBLER DIAGNOSTIC I MAGING ORDERABLES * URINALYSIS DIPSTICK AUTO (01/28/2018 9:35 PM CDT) Color UA Yellow Straw, Yellow, Colorless, Light Yellow 01/28/2018 9:50 PM CDT [facility] Clarity UA Clear Clear 01/28/2018 9:50 PM CDT [facility] Specific [place] UA 1.015 1.001 - 1.030 01/28/2018 9:50 PM CDT [facility] pH UA 5.0 5.0 - 8.0 01/28/2018 9:50 PM CDT [facility] Protein UA Negative <=20 mg/dL 01/28/2018 9:50 PM CDT [facility] Glucose UA Negative Negative mg/dL 01/28/2018 9:50 PM CDT [facility] Ketone UA Negative Negative mg/dL 01/28/2018 9:50 PM CDT [facility] Bilirubin UA Negative Negative mg/dL 01/28/2018 9:50 PM CDT [facility] Blood UA Negative Negative 01/28/2018 9:50 PM CDT [facility] Nitrite UA Negative Negative 01/28/2018 9:50 PM CDT [facility] Leukocyte Esterase Negative Negative 01/28/2018 9:50 PM CDT [facility] Urobilinogen UA <2.0 <2.0 mg/dL 8 9:50 PM CDT [facility] Urine URINE SPECIMEN OBTAINED BY CLEAN CATCH PROCEDURE / Unknown Collection / Unknown 01/28/2018 9:35 PM CDT 01/28/2018 9:35 PM CDT Rosendo Fernandez APRN-CARPENTER ASSEMBLER LAB - URINAL YSIS ORDERABLES Performing Organization Address [facility]/ZIP Co de Phone Number [address] [phone] * HEPARIN PLATELET INDUCED ANTIBODY (01/26/2018 9:18 AM CDT) Interpretation Heparin Platelet Antibody Negative Negative 01/26/2018 2:49 PM CDT [facility] Comment: Heparin induced thrombocytopenia (HIT) is unlikely in the presence of a negative HIT antibody test result by CAROLE and low pretest probability for type II HIT (scoring system of [place]). It is suggested to verify positive HIT CAROLE antibody test results by HIT Antibody Serotonin Release Assay. HIT CAROLE Patient OD 0.132 <0.400 OD 01/26/2018 2:49 PM CDT [facility] Blood BLOOD SPECIMEN / Unknown 01/26/2018 9:18 AM CDT 01/26/2018 9:47 AM CDT Ethan Hancock MD LAB - CHEMISTRY [place] [address] [phone] * ECHO FU OR LIMITED (01/25/2018 12:19 PM CDT) Anatomical Region Laterality Modality Color Flow Doppl er 01/25/2018 10:1 9 AM CDT Narrative Procedure Note Lulu Greenwood MD - 01/31/2018 Ethan Hancock MD ECHOCARDIOGRAPHY RAD IANT * (ABNORMAL) CALCIUM IONIZED WHOLE BLOOD (01/25/2018 9:05 AM CDT) Only the most recent of4 resultswithin the time period is included. Ionized Calcium Whole Blood 1.02 mmol/L 01/25/2018 9:09 AM T [facility] Adjusted Ionized Calcium 1.03(L) 1.19 - 1.34 mmol/L 01/25/2018 9:09 AM [facility] pH Whole Blood 7.42 7.35 - 7.45 01/25/2018 9:09 AM T [facility] Blood BLOOD SPECIMEN / Unknown Venipuncture / Unknown 01/25/2018 9:05 AM CDT 01/25/2018 9:07 AM CDT Fabienne Cardona MD LAB - CHEMISTRY [facility] Organization Address City/State/ZIP Co de Phone Number [address] [phone] * PT-INR [facility] (01/25/2018 12:26 AM CDT) Only the most recent of5 resultswithin the time period is included. PT 14.2 12.1 - 14.8 Seconds 01/25/2018 12:56 AM [facility] INR 1.1 See Comment 01/25/2018 12:56 AM [facility] Comment: Suggested therapeutic range for low-intensity coumadin therapy for venous thromboembolism prophylaxis is an INR of 2.0-3.0. ??For high risk patients (Mitral Valve Prosthesis, Atrial Fibrillation, history of TIA/stroke), suggested prophylactic therapeutic range is an INR of 2.5-3.5. Blood BLOOD SPECIMEN / Unknown Venipuncture / Unknown 01/25/2018 12:26 AM CDT 01/25/2018 12:39 AM CDT Fabienne Cadrona MD LAB - COAGULATION OR DERABLES Performing Organization Address [facility]/ZIP Co de Phone Number [address] [phone] * (ABNORMAL) SVO2 FOR RECALIBRATION (01/25/2018 12:26 AM CDT) Only the most recent of2 resultswithin the time period is included. SVO2 for Recalibration 80.6(H) 66.0 - 77.0 % 01/25/2018 12:46 AM CDT [facility] Blood BLOOD SPECIMEN / Unknown Venipuncture / Unknown 01/25/2018 12:26 AM CDT 01/25/2018 12:39 AM CDT Fabienne Cradona MD LAB - CHEMISTRY ORDE RABLES Performing Organization Address [facility] Co de Phone Number [address] [phone] * ECHO AMANDO TRANSESOPHAGEAL (01/24/2018 4:49 PM CDT) Anatomical Region Laterality Modality Color Flow Doppl er 01/24/2018 6:25 AM CDT Narrative Procedure Note Rosalee Ivory MD - 04/24/2018 Ethan Hancock MD ECHOCARDIOGRAPHY RAD IANT * PTT [facility] (01/24/2018 3:40 PM CDT) Only the most recent of3 resultswithin the time period is included. APTT 35.7 23.0 - 38.4 Seconds 01/24/2018 4:17 PM CDT [facility] Comment: Suggested therapeutic range for full dose I.V. heparin therapy for venous thromboembolism is 66.0-91.0 seconds. Blood BLOOD SPECIMEN / Unknown Venipuncture / Unknown 01/24/2018 3:40 PM CDT 01/24/2018 3:53 PM CDT Caryn Zhao PA-C LAB - COAGULATION O АННА [address] [phone] * FIBRINOGEN ACTIVITY (01/24/2018 3:40 PM CDT) Only the most recent of2 resultswithin the time period is included. Fibrinogen [place] 302 200 - 400 mg/dL 01/24/2018 4:16 PM CDT [facility] Blood BLOOD SPECIMEN / Unknown Venipuncture / Unknown 01/24/2018 3:40 PM CDT 01/24/2018 3:53 PM CDT Caryn Zhao PA-C LAB - COAGULATION O АННА Performing Organization Address [facility] Co de Phone Number [address] [phone] * (ABNORMAL) BLOOD GASES ART COMPLETE [facility] (01/24/2018 1:45 PM CDT) Only the most recent of3 resultswithin the time period is included. pH Arterial 7.26(L) 7.35 - 7.45 01/24/2018 1:55 PM CDT [facility] pCO2 Arterial 55(H) 35 - 45 mmHg 01/24/2018 1:55 PM T [facility] pO2 Arterial 315(H) 71 - 95 mmHg 01/24/2018 1:55 PM CDT [facility] HCO3 Arterial 24.2 22.0 - 26.0 mmol/L 01/24/2018 1:55 PM T [facility] TCO2 Arterial 25.9 25.0 - 29.0 mmol/L 01/24/2018 1:55 PM T [facility] Base Excess Arterial -3.1(L) -2.0 - 2.0 mmol/L 01/24/2018 1:55 PM CDT [facility] Hemoglobin Arterial 9.5(L) 13.5 - 17.5 g/dL 01/24/2018 1:55 PM [facility] Oxyhemoglobin Arterial 98.1 95.0 - 100.0 % 01/24/2018 1:55 PM [facility] Carboxyhemoglobin 0.3 0.0 - 3.0 % 01/24/2018 1:55 PM [facility] Methemoglobin 0.2 0.0 - 2.0 % 01/24/2018 1:55 PM [facility] FI O2 Arterial 100.0 % 01/24/2018 1:55 PM [facility] Ionized Calcium Whole Blood 1.06 mmol/L 01/24/2018 1:55 PM [facility] Adjusted Ionized Calcium 0.99(L) 1.19 - 1.34 mmol/L 01/24/2018 1:55 PM [facility] Sodium Whole Blood 135 135 - 145 mmol/L 01/24/2018 1:55 PM [facility] Potassium Whole Blood 5.2 3.5 - 5.5 mmol/L 01/24/2018 1:55 PM [facility] Chloride Whole Blood 102 101 - 111 mmol/L 01/24/2018 1:55 PM [facility] Glucose Whole Blood 138(H) 70 - 110 mg/dL 01/24/2018 1:55 PM [facility] Lactic Acid Whole Blood 1.1 0.5 - 3.4 mmol/L 01/24/2018 1:55 PM [facility] Blood ARTERIAL BLOOD SPECIMEN / Unknown Venipuncture / Unknown 01/24/2018 1:45 PM CDT 01/24/2018 1:53 PM T Fabienne Cardona MD LAB - BLOOD GASES OR DERABLES [address] [phone] * (ABNORMAL) BLOOD GASES JOSEPH (01/24/2018 11:50 AM CDT) pH Mixed Venous 7.31 7.30 - 7.40 01/24/2018 11:58 AM [facility] pCO2 Mixed Venous 50(H) 40 - 46 mmHg 01/24/2018 11:58 AM [facility] pO2 Mixed Venous 45(H) 35 - 42 mmHg 01/24/2018 11:58 AM [facility] HCO3 Mixed Venous 24.7 22.0 - 26.0 mmol/L 01/24/2018 11:58 AM [facility] TCO2 Mixed Venous 26.3 25.0 - 29.0 mmol/L 01/24/2018 11:58 AM [facility] Base Excess Venous -1.7 -2.0 - 2.0 mmol/L 01/24/2018 11:58 AM [facility] Hemoglobin Mixed Venous 9.3(L) 13.5 - 17.5 g/dL 01/24/2018 11:58 AM [facility] Oxyhemoglobin Mixed Venous 75.1 66.0 - 77.0 % 01/24/2018 11:58 AM [facility] Carboxyhemoglobin Venous 0.6 0.0 - 3.0 % 01/24/2018 11:58 AM [facility] Methemoglobin 0.5 0.0 - 2.0 % 01/24/2018 11:58 AM [facility] FI O2 Mixed Venous 75.0 % 2017 11:58 AM [facility] Blood BLOOD SPECIMEN / Unknown Venipuncture / Unknown 01/24/2018 11:50 AM CDT 01/24/2018 11:55 AM CDT Fabienne Cardona MD LAB - BLOOD GASES OR DERABLES Performing Organization Address City/State/[facility] Co de Phone Number [facility] [address] [place] [address] * PREPARE (CROSSMATCH) RBC UNIT(S), 4 Units (01/24/2018 7:31 AM CDT) Only the most recent of2 resultswithin the time period is included. Unit Description LR Red Cells [facility] Unit ABO O [facility] Unit Rh NEG [facility] Product Code RL1 [facility] Unit Number [id number] 4 [facility] Unit Status Selected [facility] Product Number [id number] [facility] Blood Type Barcode 9680 [facility] Unit Description LR Red Cells [facility] Unit ABO O [facility] Unit Rh NEG [facility] Product Code RL1 [facility] Unit Number [id number] 5 [facility] Unit Status Selected [facility] Product Number [id number] [facility] Blood Type Barcode 9500 [facility] Product Code RL1 [facility] Unit Donor # [id number] 4 [facility] Unit Status released [facility] Product Code RL1 [facility] Unit Donor # [id number] 5 [facility] Unit Status released [facility] Blood Bank BLOOD SPECIMEN / Unknown 01/24/2018 7:31 AM CDT 01/24/2018 7:31 AM CDT Fabienne Cardona MD LAB - BLOOD BANK ORD ERABLES Performing Organization Address City/State/[facility] Co de Phone Number [facility] [address] * (ABNORMAL) URINALYSIS W/MICROSCOPIC NO CULTURE (01/11/2018 3:48 PM CDT) Color UA Yellow Straw, Yellow, Colorless, Light Yellow [facility] Clarity UA Clear Clear [facility] Specific [place] UA 1.019 1.001 - 1.030 [facility] pH UA 5.5 5.0 - 8.0 [facility] Protein UA Negative <=20 mg/dL [facility] Glucose UA Negative Negative mg/dL [facility] Ketone UA Negative Negative mg/dL [facility] Bilirubin UA Negative Negative mg/dL [facility] Blood UA Trace(A) Negative [facility] Nitrite UA Negative Negative [facility] Leukocyte Esterase Negative Negative [facility] Urobilinogen UA <2.0 <2.0 mg/dL [facility] RBC UA 2 0 - 8 /HPF [facility] WBC UA <1 0 - 2 /HPF [facility] Bacteria UA Rare Rare, Occasional, None /HPF [facility] Squamous Epithelial Cells UA <1 0 - 1 /HPF [facility] Mucus UA Rare(A) None /LPF [facility] Urine specimen (specimen) URINE SPECIMEN OBTAINED BY CLEAN CATCH PROCEDURE / Unknown 01/11/2018 3:48 PM CDT 01/11/2018 4:12 PM CDT Fabienne Cardona MD LAB - URINALYSIS ORD ERABLES [facility] [address] [phone] * VAS CAROTID DUPLEX BILATERAL (12/21/2017 2:23 PM RESEARCH PROGRAM ASSISTANT) Anatomical Region Laterality Modality Other Fabienne Cardona MD VASCULAR LAB ORDERAB LES * CT CHEST WO CONTRAST (12/21/2017 1:46 PM RESEARCH PROGRAM ASSISTANT) Anatomical Region Laterality Modality Chest Other Impressions 12/21/2017 5:14 PM RESEARCH PROGRAM ASSISTANT IMPRESSION: 1. Mildly dilated/ectatic aortic root measuring 4.1 cm in diameter. No significant atherosclerotic calcifications at the aortic root. 2. Multiple right upper lobe subpleural nodules measuring up to 3 mm. If the patient is high risk, follow-up CT is optional at 12 months. If the patient is low risk, no follow-up is required. Dictated by Yeyo Birmingham M.D. (radiology ct technologist) without I, Dr. Lobito VAZQUEZ M.D. have personally reviewed and interpreted this examination/study. This report was electronically signed by Lobito VAZQUEZ M.D. ??on 12/21/2017 5:14 PM . Narrative 12/21/2017 5:14 PM RESEARCH PROGRAM ASSISTANT EXAMINATION: Computed tomography (CT) of the chest without contrast HISTORY: evaluate plaque in aorta preop for cardiac surgery TECHNIQUE: CT of the chest was performed without contrast according to standard protocol. COMPARISON: No prior study is available for comparison. FINDINGS: Evaluation of visceral and vascular structures is degraded due to lack of intravenous contrast administration. There is a left-sided two-vessel aortic arch. The aortic root is mildly dilated measuring 4.1 cm in diameter. The main pulmonary artery is normal. No significant atherosclerotic calcifications are noted at the aortic root and ascending aorta. Minimal atherosclerotic calcification is seen at the aortic arch. Atherosclerotic calcifications are seen in the coronary arteries. The lungs are clear of focal consolidation. No pleural effusion or focal pleural thickening is identified. There is no evidence of pneumothorax. Calcified hilar lymph nodes and bilateral granulomas are identified. Multiple, approximately 3 mm subpleural pulmonary nodules are noted in the right upper lobe (image 32, 33, 37, series 4). The trachea is patent and midline. The heart size is normal. No pericardial effusion is present. Mildly enlarged, however normal appearing, axillary lymph nodes are identified (series 3 image 33). Multiple subcentimeter mediastinal lymph nodes are identified. No supraclavicular lymphadenopathy is identified. The visible portions of the liver, gallbladder, spleen, pancreas, adrenal glands, kidneys, stomach, and bowel are normal. Bone windows demonstrate no suspicious lytic or blastic lesions. The visible osseous structures are intact. Advanced multilevel degenerative changes are noted in the spine. Procedure Note Niyah Vazquez MD - 01/16/2018 EXAMINATION: Computed tomography (CT) of the chest without contrast HISTORY: evaluate plaque in aorta preop for cardiac surgery TECHNIQUE: CT of the chest was performed without contrast according tostandard protocol. COMPARISON: No prior study is available for comparison. FINDINGS: Evaluation of visceral and vascular structures is degraded due to lack ofintravenous contrast administration. There is a left-sided two-vessel aortic arch. The aortic root is mildlydilated measuring 4.1 cm in diameter. The main pulmonary artery is normal.No significant atherosclerotic calcifications are noted at the aortic rootand ascending aorta. Minimal atherosclerotic calcification is seen at the aortic arch. Atheroscleroticcalcifications are seen in the coronary arteries. The lungs are clear of focal consolidation. No pleural effusion or focalpleural thickening is identified. There is no evidence of pneumothorax.Calcified hilar lymph nodes and bilateral granulomas are identified.Multiple, approximately 3 mm subpleural pulmonary nodules are noted in the right upper lobe (image 32, 33, 37,series 4). The trachea is patent and midline. The heart size is normal. No pericardial effusion is present. Mildlyenlarged, however normal appearing, axillary lymph nodes are identified(series 3 image 33). Multiple subcentimeter mediastinal lymph nodes areidentified. No supraclavicular lymphadenopathy is identified. The visible portions of the liver, gallbladder, spleen, pancreas, adrenalglands, kidneys, stomach, and bowel are normal. Bone windows demonstrate no suspicious lytic or blastic lesions. Thevisible osseous structures are intact. Advanced multilevel degenerativechanges are noted in the spine. IMPRESSION IMPRESSION: 1. Mildly dilated/ectatic aortic root measuring 4.1 cm in diameter. Nosignificant atherosclerotic calcifications at the aortic root. 2. Multiple right upper lobe subpleural nodules measuring up to 3 mm. Ifthe patient is high risk, follow-up CT is optional at 12 months. If thepatient is low risk, no follow-up is required. Dictated by Yeyo Birmingham M.D. (radiology ct technologist) without I, Dr. Lobito VAZQUEZ M.D. have personally reviewed and interpreted thisexamination/study. This report was electronically signed by Lobito VAZQUEZ M.D. on12/21/2017 5:14 PM . Fabienne Cardona MD CT ORDERABLES * XR CHEST 2VW (12/21/2017 1:33 PM RESEARCH PROGRAM ASSISTANT) Anatomical Region Laterality Modality Chest Other Impressions 12/21/2017 3:42 PM RESEARCH PROGRAM ASSISTANT IMPRESSION: No acute pulmonary process. Dictated by Airam Gibson MD (radiology ct technologist). This report was approved ??by Airam Gibson ?? on 12/21/2017 2:46 PM . I, Dr. ARGENTINA MARTIN M.D. have personally reviewed and interpreted this examination/study. This report was electronically signed by ARGENTINA MARTIN M.D. ??on 12/21/2017 3:42 PM . Narrative 12/21/2017 3:42 PM RESEARCH PROGRAM ASSISTANT EXAMINATION: XR CHEST PA AND LATERAL HISTORY: preop evaluation for cardiac surgery COMPARISON: No prior study is available for comparison. FINDINGS: The lungs are clear. There is no focal consolidation, pleural effusion, or pneumothorax. The cardiomediastinal silhouette is normal. No acute osseous injury is identified. Procedure Note Argentina Martin MD - 01/16/2018 EXAMINATION: XR CHEST PA AND LATERAL HISTORY: preop evaluation for cardiac surgery COMPARISON: No prior study is available for comparison. FINDINGS: The lungs are clear. There is no focal consolidation, pleural effusion, orpneumothorax. The cardiomediastinal silhouette is normal. No acute osseousinjury is identified. IMPRESSION IMPRESSION: No acute pulmonary process. Dictated by Airam Gibson MD (radiology ct technologist). This report was approved by Airam Gibson on 12/21/2017 2:46 PM . I, Dr. ARGENTINA MARTIN M.D. have personally reviewed and interpreted thisexamination/study. This report was electronically signed by ARGENTINA MARTIN M.D. on 12/21/20173:42 PM . Fabienne Cardona MD DIAGNOSTIC IMAGING O RDERABLES * CCL CATH LEFT HEART ARTERY VENTRICLE (11/16/2017 11:23 AM RESEARCH PROGRAM ASSISTANT) Anatomical Region Laterality Modality X-Ray Angiograph y Narrative 12/06/2017 9:57 AM RESEARCH PROGRAM ASSISTANT [facility] Cardiac Catheterization Procedure Note Patient: Raza Vazquez Age: 57 y.o. Date of : 1960 Date of Admission: 11/16/17 Procedure Date: 11/16/17 FELLOW / SAXOPHONE ASSEMBLER: Kavon Daley MD ATTENDING PHYSICIAN: Ofelia Johnson MD PREVIOUS STRESS STUDIES WITHIN 6 MONTHS: 11/02/2017 I. ? Type:exercise nuclear II. ?Findings: 1. ??Abnormal exercise test because of ??ST segment depression 2. Blood pressure response was normal. Heart rate response was normal. Exercise tolerance was fair. Myocardial perfusion imaging is abnormal. ??Overall left??ventricular systolic function was abnormal with??regional wall motion abnormalities as described above. The type and distribution of the scintigraphic finding is consistent with ??moderately severe inferior and inferolateral ischemia. No previous study was available for comparison. DIAGNOSTIC APPROPRIATENESS CRITERIA: 17 HISTORY: Mr. Raza Vazquez is a 57 year old male with relevant PMHx type 2 diabetes mellitus (not insulin dependent), hypertension, dyslipidemia, and some- day tobacco user who recently was referred to cardiology clinic for new-onset of chest discomfort. ??The patient underwent exercise nuclear stress test summary above), which was abnormal. ??Pain persisted (although somewhat improved) on 2 antianginal medications. ??Thus, the patient was referred for diagnostic cardiac catheterization and coronary angiography. ACCESS SITE(S): ?? left radial artery PROCEDURAL OVERVIEW: After obtaining informed consent and positioning the patient on the catheterization table, a timeout was performed to confirm the patient? s name, date of , and procedure. ??Sedation was initiated and the patient was prepped and draped using standard sterile technique. ??Lidocaine was used for local anesthesia over the access site, after which the vessel was accessed and a sheath was placed using the modified Seldinger technique. ??Access was uncomplicated. Intra-arterial verapamil and intravenous heparin were administered to minimize risk of radial artery spasm or occlusion. Coronary angiography was performed using FL4 6F and FR4 6F catheters. ??Left heart catheterization was performed using a FR4 6F catheter. At the conclusion of the procedure, hemostasis was achieved using a radial compression device after removal of all catheters, wires, and sheaths. ?? SEDATION: moderate sedation with 50 mcg fentanyl and 1 mg Versed Moderate sedation on this adult patient was ordered by me, administered intravenously in my presence, and monitored by the procedure nurse as an independent trained observer who was present throughout the procedure. The following parameters were monitored: oxygen saturation, heart rate, blood pressure, and response to care. Intra-service sedation start time was 1027 and end time was 1059 during which I was present. Total physician intra-service sedation time was 32 minutes. For details on pre-moderate sedation and post-moderate sedation patient evaluation, please review the evaluation forms in [facility]. For details on monitored clinical parameters during the intra-service sedation time, please review the procedure nurse documentation in [facility]. COMPLICATIONS: none HEMODYNAMIC FINDINGS: ?? AO: 117/70 mmHg LV: 117/5 mmHg ANGIOGRAPHY: ?i. ?Left main: large caliber vessel that is without angiographic evidence of atherosclerotic disease ??ii. ?? LAD: There is a severe 90% stenosis of the proximal segment. ??D1 is without angiographic evidence of atherosclerotic disease. ??The middle segment of the LAD has a mild 20% stenosis. The remainder of the LAD system is without angiographic evidence of atherosclerotic disease. ?iii. ?? LCx: nondominant vessel that gives rise to a high OM1 branch. ??The proximal LCx and OM1 are without angiographic evidence of atherosclerotic disease. The middle segment of the LCx has a moderate 50% stenosis, followed by a severe 80% stenosis, followed by a moderate 40% stenosis. ??There are 3 other OM branches, and the system terminates with a PL branch. ?iv. ?? RCA: dominant vessel. ??The proximal and middle segments have serial mild and moderate stenoses around the first bend ranging in severity of 30-50%. ??Just prior to the second bend, the middle segment has a severe 70% stenosis. The distal segment of the RCA has luminal irregularities of up to 10- 20% prior to terminating as a PDA branch. The PDA branch is without angiographic evidence of atherosclerotic disease. ?? DOMINANCE: Right DIAGNOSTIC INTERPRETATIONS: 1. Severe multivessel coronary artery disease ??-- proximal segment LAD ??-- middle segment LCx ??-- middle segment RCA RECOMMENDATIONS AFTER DIAGNOSTIC CATHETERIZATION: ?? Medical management of chronic CAD. Aspirin 81 mg QDAY indefinitely. Aggressive modification of atherosclerotic risk factors. Cardiac surgery evaluation for CABG. Kavon Daley MD 11/16/2017 I was present for the critical portion of the procedure, and either performed or directly supervised all critical parts of the procedure. Ofelia Johnson MD Procedure Note Ofelia Johnson MD - 03/22/2018 [facility] Cardiac Catheterization Procedure Note Patient: Raza Vazquez Age: 57 y.o. Date of : 1960 Date of Admission: 11/16/17 Procedure Date: 11/16/17 FELLOW / SAXOPHONE ASSEMBLER: Kavon Daley MD ATTENDING PHYSICIAN: Ofelia Johnson MD PREVIOUS STRESS STUDIES WITHIN 6 MONTHS: 11/02/2017 I. Type:exercise nuclear II. Findings: 1. ??Abnormal exercise test because of ??ST segment depression 2. Blood pressure response was normal. Heart rate response was normal.Exercise tolerance was fair. Myocardial perfusion imaging is abnormal. ??Overall left??ventricularsystolic function was abnormal with??regional wall motion abnormalities asdescribed above. The type and distribution of the scintigraphic finding isconsistent with ??moderately severe inferior and inferolateral ischemia. No previous study was available for comparison. DIAGNOSTIC APPROPRIATENESS CRITERIA: 17 HISTORY: Mr. Raza Vazquez is a 57 year old male with relevant PMHxtype 2 diabetes mellitus (not insulin dependent), hypertension,dyslipidemia, and some- day tobacco user who recently was referred tocardiology clinic for new-onset of chest discomfort. The patient underwent exercise nuclear stress test summaryabove), which was abnormal. Pain persisted (although somewhat improved)on 2 antianginal medications. Thus, the patient was referred fordiagnostic cardiac catheterization and coronary angiography. ACCESS SITE(S): left radial artery PROCEDURAL OVERVIEW: After obtaining informed consent and positioning the patient on thecatheterization table, a timeout was performed to confirm the patient? sname, date of , and procedure. Sedation was initiated and thepatient was prepped and draped using standard sterile technique. Lidocaine was used for local anesthesia over theaccess site, after which the vessel was accessed and a sheath was placedusing the modified Seldinger technique. Access was uncomplicated.Intra-arterial verapamil and intravenous heparin were administered to minimize risk of radial artery spasm orocclusion. Coronary angiography was performed using FL4 6F and FR4 6Fcatheters. Left heart catheterization was performed using a FR4 6Fcatheter. At the conclusion of the procedure, hemostasis was achieved using a radial compression device after removal ofall catheters, wires, and sheaths. SEDATION: moderate sedation with 50 mcg fentanyl and 1 mg Versed Moderate sedation on this adult patient was ordered by me, administeredintravenously in my presence, and monitored by the procedure nurse as anindependent trained observer who was present throughout the procedure. Thefollowing parameters were monitored: oxygen saturation, heart rate, blood pressure, and response tocare. Intra-service sedation start time was 1027 and end time was 1059during which I was present. Total physician intra-service sedation timewas 32 minutes. For details on pre-moderate sedation and post-moderate sedation patient evaluation,please review the evaluation forms in [facility]. For details on monitoredclinical parameters during the intra-service sedation time, please reviewthe procedure nurse documentation in [facility]. COMPLICATIONS: none HEMODYNAMIC FINDINGS: AO: 117/70 mmHg LV: 117/5 mmHg ANGIOGRAPHY: i. Left main: large caliber vessel that is without angiographicevidence of atherosclerotic disease ii. LAD: There is a severe 90% stenosis of the proximal segment. D1is without angiographic evidence of atherosclerotic disease. The middlesegment of the LAD has a mild 20% stenosis. The remainder of the LADsystem is without angiographic evidence of atherosclerotic disease. iii. LCx: nondominant vessel that gives rise toa high OM1 branch. The proximal LCx and OM1 are without angiographicevidence of atherosclerotic disease. The middle segment of the LCx has amoderate 50% stenosis, followed by a severe 80% stenosis, followed by a moderate 40% stenosis. There are 3other OM branches, and the system terminates with a PL branch. iv. RCA: dominant vessel. The proximal andmiddle segments have serial mild and moderate stenoses around the firstbend ranging in severity of 30-50%. Just prior to the second bend, themiddle segment has a severe 70% stenosis. The distal segment of the RCA has luminal irregularities of upto 10- 20% prior to terminating as a PDA branch. The PDA branch is withoutangiographic evidence of atherosclerotic disease. DOMINANCE: Right DIAGNOSTIC INTERPRETATIONS: 1. Severe multivessel coronary artery disease -- proximal segment LAD -- middle segment LCx -- middle segment RCA RECOMMENDATIONS AFTER DIAGNOSTIC CATHETERIZATION: Medical management of chronic CAD. Aspirin 81 mg QDAY indefinitely. Aggressive modification of atherosclerotic risk factors. Cardiac surgery evaluation for CABG. Kavon Daley MD 11/16/2017 I was present for the critical portion of the procedure, and eitherperformed or directly supervised all critical parts of the procedure. Ofelia Johnson MD Jeffrey Jo MD CARDIAC DAUB COLOR MIXER RAD IANT * ECHO W DOPPLER AND COLOR FLOW (11/16/2017 12:00 AM RESEARCH PROGRAM ASSISTANT) Anatomical Region Laterality Modality Other 11/16/2017 Jeffrey Jo MD ECHOCARDIOGRAPHY RAD IANT * PROC CARDIOLYTE STRESS TEST (11/06/2017 12:51 PM RESEARCH PROGRAM ASSISTANT) Narrative [facility] RAD[facility]OLOG[facility] - 11/06/2017 12:51 PM RESEARCH PROGRAM ASSISTANT Patient Name: Raza Vazquez ?: 1960 ?CPT Codes: 88575 Study: Exercise Myocardial Perfusion - One Day Protocol Date of Service: 11/02/17 Referring Physician: Shara This report reflects our interpretive findings of the results of the myocardial perfusion imaging and the stress electrocardiogram combined with the patient's age, sex, symptoms, and coronary risk factors. ??The study was performed in order to evaluate chest pain ??in this 57 y.o. male with diabetes mellitus and abnormal EKG. Exercise Stress: The patient performed treadmill exercise for 6 minutes 45 seconds using the Domenic protocol, completing an estimated workload of 8.2 METs and achieving a peak heart rate of 151 BPM or 93% age-predicted maximum heart rate. ??Exercise was terminated due to dyspnea. ??The resting blood pressure was 138/88 and was 162/92 at peak exercise. ??The blood pressure response to exercise was hypertensive. ??The resting ECG revealed normal sinus rhythm. ??The stress ECG revealed [address] depression in leads II,III,AVF and V6 consistent with ischemia. There were no significant arrhythmias. ??The patient experienced dyspnea symptoms during the procedure. Myocardial Perfusion Imaging: SPECT myocardial perfusion imaging was performed at rest 35 minutes following the I.V. injection of 16.1 mCi of Tc99m sestamibi. ??At peak exercise, the patient was injected with 42.4 mCi Tc99m Sestamibi. ??Gated SPECT imaging was performed 30 minutes after stress. The overall quality of the study is good . ??There was no significant signs of attenuation. ?? TID was 1.02 and the lung-heart ratio was 0.30 which is normal. ??SPECT imaging revealed a moderate sized reversible perfusion defect in the inferior and inferolateral segments consistent with ischemia. The global ejection fraction was 47%. ??Regional wall motion analysis showed inferior wall hypokinesis. ?? Conclusion: Myocardial perfusion imaging is abnormal. ??Overall left ventricular systolic function was abnormal with regional wall motion abnormalities as described above. The type and distribution of the scintigraphic finding is consistent with ??moderately severe inferior and inferolateral ischemia. No previous study was available for comparison. Electronically signed by: Rosalee Ivory MD Date of Interpretation: 11/06/17 ? Date of Final Report: 11/06/17 Procedure Note Provider, MD Navarro - 03/22/2018 Patient Name: Raza Vazquez : 1960 CPT Codes: 25001 Study: Exercise Myocardial Perfusion - One Day Protocol Date of Service: 11/02/17 Referring Physician: Shara This report reflects our interpretive findings of the results of themyocardial perfusion imaging and the stress electrocardiogram combinedwith the patient's age, sex, symptoms, and coronary risk factors. Thestudy was performed in order to evaluate chest pain in this 57 y.o. male with diabetes mellitus and abnormalEKG. Exercise Stress: The patient performed treadmill exercise for 6 minutes 45 seconds usingthe Domenic protocol, completing an estimated workload of 8.2 METs andachieving a peak heart rate of 151 BPM or 93% age-predicted maximum heartrate. Exercise was terminated due to dyspnea. The resting blood pressure was 138/88 and was 162/92 at peakexercise. The blood pressure response to exercise was hypertensive. Theresting ECG revealed normal sinus rhythm. The stress ECG revealed 1 [address]depression in leads II,III,AVF and V6 consistent with ischemia. There were no significant arrhythmias. Thepatient experienced dyspnea symptoms during the procedure. Myocardial Perfusion Imaging: SPECT myocardial perfusion imaging was performed at rest 35 minutesfollowing the I.V. injection of 16.1 mCi of Tc99m sestamibi. At peakexercise, the patient was injected with 42.4 mCi Tc99m Sestamibi. GatedSPECT imaging was performed 30 minutes after stress. The overall quality of the study is good . There was no significant signsof attenuation. TID was 1.02 and the lung-heart ratio was 0.30 which isnormal. SPECT imaging revealed a moderate sized reversible perfusiondefect in the inferior and inferolateral segments consistent with ischemia. The global ejectionfraction was 47%. Regional wall motion analysis showed inferior wallhypokinesis. Conclusion: Myocardial perfusion imaging is abnormal. Overall left ventricularsystolic function was abnormal with regional wall motion abnormalities asdescribed above. The type and distribution of the scintigraphic finding isconsistent with moderately severe inferior and inferolateral ischemia. No previous study was available for comparison. Electronically signed by: Rosalee Ivory MD Date of Interpretation: 11/06/17 Date of Final Report: 11/06/17 Lisy Olmedo MD ECG ORDERABLE S [facility] RADIOLOG[facility] * PROC STRESS TEST EXERCISE (11/02/2017 5:23 PM RESEARCH PROGRAM ASSISTANT) Narrative [facility] RADIOLOG[facility] - 11/02/2017 5:23 PM RESEARCH PROGRAM ASSISTANT Patient Name: Raza Vazquez ?Patient : 1960 ?CPT Codes: 68305 ? Study: Exercise Treadmill Electrocardiogram Date of Procedure: 11/02/17 Referring Physician: Shara This report reflects our interpretive findings of the exercise treadmill electrocardiogram combined with the patient's age, sex, symptoms, and coronary risk factors. The study was performed in order to evaluate chest pain in this 57 y.o. male with history of abnormal EKG HTN and DM. Procedure: Exercise Nuclear 1. ??The patient exercised 6 minutes and 45 seconds, reaching stage 3 of the Domenic protocol. ??Peak Heart rate was 151 bpm or 93% of age predicted maximum and peak blood pressure was 162/92 mmHg. ??The estimated workload was 8.2 METs. 2. ??The test was stopped because of dyspnea. Standing rest heart rate was 78bpm and rest blood pressure was 138/88mmHg. 3. ??Chest pain: none ? Interpretation: 1. ??Rest ECG: Sinus with inferior T wave abnormality. 2. ??Exercise ST segment depression: ? Abnormal. ??Exercised induced a maximum of ?? [address] depression in leads 2,3,avF,V6 which started 5 minutes into exercise and resolved 2 minutes into recovery.} 3. ??Exercise ST segment elevation: ? none 4. T wave changes were absent ? Arrhythmias: ?A. ??PVC's and ventricular couplets during recovery. ? Impression: 1. ??Abnormal exercise test because of ??ST segment depression 2. Blood pressure response was normal. Heart rate response was normal. Exercise tolerance was fair. 3. ??This is a high risk study:No Please see nuclear imaging under separate report. Electronically signed by: Abdon Dean MD Date of interpretation and final report: 11/02/2017 Procedure Note Provider, MD Navarro - 03/22/2018 Patient Name: Raza Vazquez Patient :1960 CPT Codes: 32046 Study: Exercise Treadmill Electrocardiogram Date of Procedure: 11/02/17 Referring Physician: Shara This report reflects our interpretive findings of the exercise treadmillelectrocardiogram combined with the patient's age, sex, symptoms, andcoronary risk factors. The study was performed in order to evaluate chestpain in this 57 y.o. male with history of abnormal EKG HTN and DM. Procedure: Exercise Nuclear 1. The patient exercised 6 minutes and 45 seconds, reaching stage 3 ofthe Domenic protocol. Peak Heart rate was 151 bpm or 93% of age predictedmaximum and peak blood pressure was 162/92 mmHg. The estimated workloadwas 8.2 METs. 2. The test was stopped because of dyspnea. Standing rest heart rate [id number] and rest blood pressure was 138/88mmHg. 3. Chest pain: none Interpretation: 1. Rest ECG: Sinus with inferior T wave abnormality. 2. Exercise ST segment depression: Abnormal. Exercised induced a maximum of [address] depression inleads 2,3,avF,V6 which started 5 minutes into exercise and resolved 2minutes into recovery.} 3. Exercise ST segment elevation: none 4. T wave changes were absent Arrhythmias: A. PVC's and ventricular couplets during recovery. Impression: 1. Abnormal exercise test because of ST segment depression 2. Blood pressure response was normal. Heart rate response was normal.Exercise tolerance was fair. 3. This is a high risk study:No Please see nuclear imaging under separate report. Electronically signed by: Abdon Dean MD Date of interpretation and final report: 11/02/2017 Lisy Olmedo MD ECG ORDERABLE S [facility] RAD[facility] * PROSTATE SPECIFIC ANTIGEN SCREEN (09/18/2014 9:18 AM RESEARCH PROGRAM ASSISTANT) PSA Total 1.4 < OR = 4.0 ng/mL [facility] Comment: This test was performed using the Siemens chemiluminescent method. Values obtained from different assay methods cannot be used interchangeably. PSA levels, regardless of value, should not be interpreted as absolute evidence of the presence or absence of disease. Test Performed at: [employer] [place] [address] [facility] [place] ??[phone] EH PURVIS DO,MPH Venous blood specimen (specimen) 09/18/2014 9:18 AM RESEARCH PROGRAM ASSISTANT 09/18/2014 9:19 AM RESEARCH PROGRAM ASSISTANT Lisy Olmedo MD LAB - TILE HELPER RY ORDERABLES [facility]) Care Teams Blaster Helper Relationship Specialty Start Date End Date Kiana Cole MD [address] [place] [address] PCP - General Internal Medicine 09/16/24 Sylvain Daniels MD Family Medicine 02/15/24
--- OUTSIDE RECORDS SUMMARY | 2024-10-11 19:40 | XMS_ITS | Referral Summary ---
Author Organization [facility] Address [address] [address] Care Team Providers Care Bench Machine Operator Name Role Phone Sylvain Daniels MD Unavailable [phone] Kiana Cole MD Primary Care Provider Source Comments [facility],non-owned Affiliates and Associated Physician Practices is amultiple site organization consisting of ambulatory clinics and hospital sitesin [place], [place], [place] and [place]. This disclosure is being madepursuant to the Care Everywhere program and may not contain all information available regarding this patient. Last updated 18.[facility] Encounters Date Type Department Care Team Description 10/02/2024 Nurse Triage [facility] [address], [facility] [place] [address] [place] [address] Kiana Cole MD Forms 10/02/2024 Nurse Triage [facility] [address], [facility] [place] [address] [place] [address] Kiana Cole MD Constipation (/) 09/25/2024 Nurse Triage [facility] [address], [facility] [place] [address] [place] [address] Kiana Cole MD Update; Home Health 09/17/2024 Travel 09/17/2024 8:00 AM BELT GLASS SANDER Office Visit [facility] - Family Medicine [address] [facility] [facility] [address] [place] [phone] Kiana Cole MD Cerebrovascular accident (CVA), unspecified mechanism (HCC) (Primary Dx); Coronary artery disease involving teller heart without angina pectoris, unspecified vessel or lesion type; S/P CABG x 3; Essential hypertension; Type 2 diabetes mellitus without complication, with long-term current use of insulin (HCC); Mild persistent asthma without complication (HCC) 08/29/2024 Travel 08/29/2024 9:00 AM BELT GLASS SANDER Office Visit [facility] - Neurology [address] [facility] [place] [address] Farhat Enamorado MD Cerebrovascular accident (CVA), unspecified mechanism (HCC) (Primary Dx) 08/12/2024 9:40 AM CDT Office Visit [facility] - Cardiology [address] [facility], [facility] [address] [place] [address] Curly Lay MD Coronary artery disease involving teller heart without angina pectoris, unspecified vessel or lesion type (Primary Dx); Hyperlipidemia, unspecified hyperlipidemia type; Cerebrovascular accident (CVA), unspecified mechanism (HCC); PVC (premature ventricular contraction); Essential hypertension 08/11/2024 Travel from Last 3 Months Allergies Active Allergy Reactions Criticality Noted Date Comments Lisinopril Angioedema High 02/22/2018 Lisinopril Other,Urticaria Medium 02/15/2024 Hives Penicillins Swelling 01/24/2018 eyes swelled shut 50 years ago Penicillin V Rash Medium 09/28/2011 Penicillins Other,Urticaria Medium 02/15/2024 Hives Medications * Be aware that medications may not be up to date on this document. Alwaysverify current medications with the patient. Medication Sig Dispensed Refills Start Date End Date Status albuterol (Proventil;Vent elysia) (2.5 MG/3ML) 0.083% nebulizer solution Inhale 2.5 (two and one-half) mg by mouth every 4 hours as needed for Shortness of Breath or Wheezing 02/15/2024 Active senna-docusate (Senokot-S) 8.6-50 MG tablet 2 (two) tablets by Enteral Tube route 2 times daily 02/15/2024 Active Additional Information Patient taking differently:2 tablet Enteral Tube 2 TIMES DAILY,Using PRN, Reported on 08/29/2024 multiple vitamins with minerals tablet 1 (one) tablet by Enteral Tube route once daily 02/16/2024 Active acetaminophen (Tylenol) 325 MG tablet 2 (two) tablets by Per G Tube route every 6 hours as needed 03/12/2024 Active QUEtiapine (SEROquel) 25 MG tablet Insert 1 (one) tablet into appropriate tube 2 times daily as needed 04/11/2024 Active albuterol-iprat ropium (Duo-Neb) 0.5-2.5 (3) MG/3ML nebulizer solutionIndicat ions:Asthma Inhale 3 mL by mouth every 6 hours Reasons: Asthma 200 mL 5 09/17/2024 Active amLODIPine (Norvasc) 10 MG tablet 1 (one) tablet by Enteral Tube route once daily 90 tablet 3 09/17/2024 Active aspirin (Aspirin) 81 MG chew tablet 1 (one) tablet by Enteral Tube route once daily 90 tablet 3 09/17/2024 Active atorvastatin (Lipitor) 40 MG tablet 1 (one) tablet by Enteral Tube route at bedtime 90 tablet 3 09/17/2024 Active clopidogrel (plaVIX) 75 MG tablet 1 (one) tablet by Enteral Tube route once daily 90 tablet 3 09/17/2024 Active famotidine (Pepcid) 20 MG tablet 1 (one) tablet by Enteral Tube route 2 times daily 180 tablet 3 09/17/2024 Active folic acid (Folvite) 1 MG tablet 1 (one) tablet by Enteral Tube route once daily 90 tablet 3 09/17/2024 Active busPIRone (Buspar) 5 MG tablet 1 (one) tablet by Per G Tube route 3 times daily Taking bid 180 tablet 3 09/17/2024 Active insulin glargine (Lantus/Semglee ) 100 units/mL pen Inject 11 (eleven) Units subcutaneously at bedtime 15 mL 3 09/17/2024 Active loratadine (Claritin) 10 MG tablet 1 (one) tablet by Per G Tube route once daily 90 tablet 3 09/17/2024 Active aspirin (Aspirin) 81 MG chew tablet 1 (one) tablet by Enteral Tube route once daily 02/16/2024 4 Discontinue d(Reorder) atorvastatin (Lipitor) 40 MG tablet 1 (one) tablet by Enteral Tube route at bedtime 02/15/2024 4 Discontinue d(Reorder) amLODIPine (Norvasc) 10 MG tablet 1 (one) tablet by Enteral Tube route once daily 02/16/2024 4 Discontinue d(Reorder) folic acid (Folvite) 1 MG tablet 1 (one) tablet by Enteral Tube route once daily 02/16/2024 4 Discontinue d(Reorder) clopidogrel (plaVIX) 75 MG tablet 1 (one) tablet by Enteral Tube route once daily 02/16/2024 4 Discontinue d(Reorder) famotidine (Pepcid) 20 MG tablet 1 (one) tablet by Enteral Tube route 2 times daily 02/15/2024 4 Discontinue d(Reorder) albuterol-iprat ropium (Duo-Neb) 0.5-2.5 (3) MG/3ML nebulizer solutionIndicat ions:Asthma Inhale 3 mL by mouth every 6 hours Reasons: Asthma 02/15/2024 4 Discontinue d(Reorder) busPIRone (Buspar) 5 MG tablet 1 (one) tablet by Per G Tube route 3 times daily Taking bid 03/12/2024 4 Discontinue d(Reorder) loratadine (Claritin) 10 MG tablet 1 (one) tablet by Per G Tube route once daily 04/11/2024 4 Discontinue d(Reorder) insulin glargine (Lantus/Semglee ) 100 units/mL pen Inject 11 (eleven) Units subcutaneously at bedtime 4 Discontinue d(Reorder) Active Problems Problem Noted Date Diagnosed Date PVC (premature ventricular contraction) 08/12/20 Assessment & Plan (08/12/2024 11:02 AM CDT): Nonsustained VT, asx. I offered bB for suppression. Sister concerned about polypharmacy which I echo. Observe. H/O: CVA (cerebrovascular accident) 05/26/2024 Assessment & Plan (08/12/2024 11:01 AM CDT): Secondary prevention with DAPT, statin. Seizure-like activity 05/26/2024 Basilar artery stenosis 05/26/2024 Cerebrovascular accident (CVA), unspecified mech anism 05/25/2024 Dysphagia following cerebral infarction 03/19/20 24 Impaired cognition 03/19/2024 Cerebrovascular accident 03/12/2024 Problem with highly complex treatment regime 12/2023 Staphylococcus aureus infection 02/08/2024 Altered mental status, unspe cified altered mental status type 01/23/2024 Hypoxia 01/23/2024 Acute hypoxemic respiratory failure 07/26/2022 Hyperlipidemia 08/05/2020 Assessment & Plan (08/12/2024 11:00 AM CDT): LDL-C > 100 in 01/2024 when he was not on meds. Now that he's on atorva 40, will continue and recheck lipid profile. Assessment & Plan (03/17/2021 8:56 AM CDT): Component Ref Range & Units 7 mo ago Cholesterol <200 mg/dL 254High HDL Cholesterol > OR = 40 mg/dL 48 Triglycerides <150 mg/dL 179High LDL Calculated mg/dL (calc) 173High Comment: Reference range: <100 ?? Desirable range <100 mg/dL for primary prevention; ?? <70 mg/dL for patients with CHD or diabetic patients with > or = 2 CHD risk factors. ?? LDL-C is now calculated using the Mika-Dania calculation, which is a validated novel method providing better accuracy than the Friedewald equation in the estimation of LDL-C. Mika EATON et al. RAFFI. 2013;310(19): 1392-4288 (http://education.InSupply.DealitLive.com/faq/CTV528) CHOL/HDLC RATIO <5.0 (calc) 5.3High Non HDL Cholesterol <130 mg/dL (calc) 206High Hard to believe patient is taking 80 atorva but we will recheck lipids and add zetia and likely will need PCSK9i if really taking check lp(a) Nocturia 08/05/2020 Weight gain 08/05/2020 Overview (08/05/2020): 40# past 6-8 months-covid Other chest pain 09/04/2018 S/P CABG x 3 01/24/2018 CAD (coronary artery disease) 01/23/2018 Assessment & Plan (08/12/2024 11:01 AM CDT): S/p CABG Minimal exertion, no anginal symptoms in this setting. Continue aspirin, statin, plavix, amlodipine Assessment & Plan (03/17/2021 8:52 AM CDT): without angina needs more aggressive RFM continue aspirin Essential hypertension 01/23/2018 Assessment & Plan (08/12/2024 11:01 AM CDT): Controlled. Continue regimen. Assessment & Plan (03/17/2021 9:03 AM CDT): encouraged him to follow directions of PCP for switch to spironolactone. He is also likely to need additional BP med adjustment with addition of HCTZ encouraged malu bp monitoring as recommended by PCP needs weight loss desperately and referred to hat forming machine operator asked him to stop naproxen Controlled type 2 diabetes m ellitus without complication, without long-term current use of insulin 09/28/2011 Asthma Resolved Problems Problem Noted Date Diagnosed Date Resolved Date Morbid obesity with BMI of 40.0-44.9, adult 08/05/2020 09/17/2024 Wound of sternal region 02/23/201807/16 Superficial postoperative wound infection 02/23/2018 08/05/2020 Overview (02/23/2018): sternum Abnormal stress test 11/12/2017 020 Obesity (BMI 30-39.9) 04/24/20122019 Immunizations Name Administration Dates Next Due COVID PFIZER 12+YR 30MCG/0.3mL 09/17/2023 Covid Pfizer primary monoval ent 12+ yr 0.3mL Purple cap 09/17/2023 FLU VACCINE TRI IIV3 SPLIT IM (FLUVIRIN) 017 INFLUENZA 06/29/2019,09/03/2018 INFLUENZA VACCINE, QUADR. (F LUZONE; FLULAVAL; FLUARIX; AFLURIA QUADRIVALENT; 6MO+), 0.5 ML (IIV4) 09/17/2023,10/05/2017 PNEUMOCOCCAL PPSV23 11/05/2018,02/29/2012 TD (ADULT), 5 LF TETANUS TOXOID, ADSORBED, PF Social History Tobacco Use Types Packs/Day Years Used Date Smoking Tobacco: Former Cigars S tarted: 1997 Smokeless Tobacco: Never Tobacco Cessation:Counseling Given: No Comments:3-4 times / month-2019 says 1x/month Alcohol Use Standard Drinks/Week Comments [...] Recorded Patient Health Questionnaire-2 Score 0 09/17/2024 [facility] - Occupational Stress [...] place to sleep or slept in a chcf (including now)? No 05/26/2024 Education Answer Date [...] Comments Blood Pressure 124/83 09/17/2024 8:17 AM BELT GLASS SANDER Pulse 101 09/17/2024 8:17 AM BELT GLASS SANDER Temperature 35.8 ??C (96.5 ??F) 09/17/2024 8:17 AM CS T Respiratory Rate 10 08/29/2024 8:44 AM BELT GLASS SANDER Oxygen Saturation 96% 09/17/2024 8:17 AM BELT GLASS SANDER Inhaled Oxygen Concentration 21% 02/15/2024 3 :17 PM CDT Weight 120.2 kg (265 lb) 09/17/2024 8:17 AM BELT GLASS SANDER Height 193 cm (6' 4 ) 09/17/2024 8:17 AM BELT GLASS SANDER Body Mass Index 32.26 09/17/2024 8:17 AM BELT GLASS SANDER Functional Status Functional Status Response Date of Assess ment Is person deaf or have serious hearing difficult y? No 05/26/2024 Is person blind or have serious difficulty seein g? No 05/26/2024 Does person have serious dif ficulty walking/climbing stairs? Yes 05/26/2024 Does person have difficulty dressing/bathing? Ye s 05/26/2024 Does person have difficulty doing errands alone? Yes 05/26/2024 Cognitive Status Response Date of Assessm ent Does person have difficulty concentrating/remembering/making decisions? No 05/26/2024 Plan of Treatment Upcoming Encounters Date Type Department Care Team (Late st Contact Info) Description 10/20/2024 8:00 AM BELT GLASS SANDER Office Visit [facility] - Family Medicine [address] [facility] [facility] [address] [place] [phone] Kiana Cole MD [address] [place], [place] [phone] 11/28/2024 9:00 AM BELT GLASS SANDER Office Visit [facility] - Neurology [address] [facility] [place] [address] Aline Finch MD [address] [facility] [place] [address] 02/10/2025 10:00 AM CDT Office Visit [facility] - Cardiology [address] [phone] [place] [phone] Curly Lay MD [phone] [place] [address] Procedures Procedure Name Priority Date/Time Associated Diagnosis Comments HEMOGLOBIN A1C - POINT OF CARE (AMB) [facility] Routine 09/17/2024 9:38 AM BELT GLASS SANDER Type 2 diabetes mellitus without complication, with long-term current use of insulin (HCC) EYE EXAM 08/11/2024 CARDIAC PROCEDURE ORDER 07/18/2024 CARDIAC PROCEDURE ORDER 07/15/2024 BASIC METABOLIC PANEL (CALCIUM TOTAL) Routine 06/04/2024 11:30 AM CDT ENDOSCOPY, COLON, SCREENING Routine 11/12/2020 12:12 PM BELT GLASS SANDER MICROALB/CREAT RATIO URINE RANDOM PANEL 07/23/2020 6:49 AM CDT HEPATITIS C AB W/RFLX TO HCV RNA QN PCR 07/23/2020 6:49 AM CDT HIV-1 HIV-2 ANTIBODY + HIV P24 AG PANEL 07/23/2020 6:49 AM CDT from Last 3 Months or Most Recently Relevant to Health Maintenance Results * (ABNORMAL) HEMOGLOBIN A1C - POINT OF CARE (AMB) [facility] (09/17/2024 9:38 AM BELT GLASS SANDER) Hemoglobin A1c POCT 6.2(A) 4.2 - 5.8 % QC Verified Yes Yes Blood BLOOD SPECIMEN / Unknown 09/17/2024 9:38 AM BELT GLASS SANDER Kiana Cole MD LAB - POINT OF CARE ORDERABLES * EYE EXAM (08/11/2024) Anatomical Region Laterality Modality Other Narrative 08/11/2024 Ordered by an unspecified provider. Scanned Document SCANNING ONLY * CARDIAC PROCEDURE ORDER (07/18/2024) Only the most recent of2 resultswithin the time period is included. 07/18/2024 Narrative 07/18/2024 Ordered by an unspecified provider. Scanned Document CARDIAC SERVICES ORD ERABLES * (ABNORMAL) BASIC METABOLIC PANEL (CALCIUM TOTAL) (06/04/2024 11:30 AM CDT) BUN 18 7 - 26 mg/dL 06/04/2024 12:27 PM CDT [facility] Creatinine 0.78 0.71 - 1.16 mg/dL 06/04/2024 12:27 PM CDT [facility] Sodium 135(L) 136 - 145 mmol/L 06/04/2024 12:27 PM [facility] Potassium 4.1 3.5 - 4.5 mmol/L 06/04/2024 12:27 PM [facility] Chloride 102 98 - 107 mmol/L 06/04/2024 12:27 PM [facility] CO2 25 22 - 29 mmol/L 06/04/2024 12:27 PM [facility] Glucose 138(H) 70 - 115 mg/dL 06/04/2024 12:27 PM [facility] Calcium 9.6 8.4 - 10.2 mg/dL 06/04/2024 12:27 PM [facility] Anion Gap 8 6 - 16 06/04/2024 12:27 PM [facility] BUN/Creatinine Ratio 23 7 - 23 06/04/2024 12:27 PM [facility] Osmolality Calculated 284 275 - 295 mOsm/kg 06/04/2024 12:27 PM [facility] eGFR by CKD-EPI >90 >=90 mL/min/1.7 3 m2 06/04/2024 12:27 PM [facility] Blood BLOOD SPECIMEN / Unknown Lab Venipuncture / Unknown 06/04/2024 11:30 AM CDT 06/04/2024 11:51 AM [facility] Jason Coppola MD LAB - CHEMISTRY [facility] Organization Address City/State/ZIP Co de Phone Number [facility] [address] [place] [address], [facility] [phone] * ENDOSCOPY, COLON, SCREENING (11/12/2020 12:12 PM BELT GLASS SANDER) Report Endoscopy POC Endoscopy Department Report _ Patient Name: Yaya Prietoson ??Procedure Date: 11/12/2020 12:12 PM ? Date [...] colon ?K64.8, Other hemorrhoids CPT copyright 2019 [employer]. All rights reserved. The codes documented in this report are preliminary and upon recreational vehicle repairer review may be revised to meet current compliance requirements. Jodi Vernon MD 11/12/2020 12:57:40 PM Note Initiated On: 11/12/2020 12:12 PM Number of Addenda: 0 ? [facility] ? [address] [place] [address] [facility] 11/12/2020 12:1 2 PM BELT GLASS SANDER Jodi Vernon MD GI PROCEDURE ORDER GISSEL [facility] * HEPATITIS C AB W/RFLX TO HCV RNA QN PCR (07/23/2020 6:49 AM CDT) Hepatitis C Antibody NON-REACTI VE NON-REACT [facility] Signal to Cut-Off 0.09 <1.00 [facility] Comment: HCV antibody was non-reactive. There is no laboratory evidence of HCV infection. In most cases, no further action is required. However, if recent HCV exposure is suspected, a test for HCV RNA (test code 19593) is suggested. For additional information please refer to http://Aspire.CloudTalk/faq/TPG63h2 (This link is being provided for informational/ educational purposes only.) Test Performed at: [facility] [place], [place] ??[phone] EH PURVIS DO,MPH 07/23/2020 6:49 AM CDT 07/23/2020 6:51 AM CDT Lisy Olmedo MD LAB - PRESTO LOG OPERATOR RY ORDERABLES Performing Organization Address City/State/[facility] Co de Phone Number [facility] [address] [place] [address] * HIV-1 HIV-2 ANTIBODY + HIV P24 AG PANEL (07/23/2020 6:49 AM CDT) Pathologist [facility] HIV Screen 4th Generation w Reflex NON-REACT [...] ?? For additional information please refer to http://Aspire.CloudTalk/faq/OAY126 (This link is being provided for informational/ educational purposes only.) The performance of this assay has not been clinically validated in patients less than 2 years old. Test Performed at: [facility] [place], [place] ??[phone] EH PURVIS DO,MPH 07/23/2020 6:49 AM CDT 07/23/2020 6:51 AM CDT Lisy Olmedo MD LAB - PRESTO LOG OPERATOR RY ORDERABLES Performing Organization Address [facility] de Phone Number [facility] [address] [place] [address] * MICROALB/CREAT RATIO URINE RANDOM PANEL (07/23/2020 6:49 AM CDT) Creatinine Urine 270 20 - 320 mg/dL [...] within a diagnostic category. Test Performed at: [facility] [address] ??[phone] EH PURVIS DO,MPH 07/23/2020 6:49 AM CDT 07/23/2020 6:51 AM CDT Lisy Olmedo MD LAB - URINE C HEMISTRY ORDERABLES Performing Organization Address [facility] de Phone Number [facility] [address] [place] [address] from Last 3 Months or Most Recently Relevant to Health Maintenance Advance Directives Documents on File Type Date Recorded Patient Campaign Assistant Expl anation Durable HCPOA 09/17/2024 4:08 PM Durable H CPOA Adv Directive/Living Will/POA 05/17/2024 POA PAPERWORK Adv Directive/Living Will/POA 02/07/2018 9:32 AM * Full Code (Latest Code Status on File) Date Activated Date Inactivated Comments 05/25/2024 9:46 PM 06/04/2024 8:17 PM * Full Code Date Activated Date Inactivated Comments 03/17/2024 3:31 PM 04/11/2024 2:00 PM * Full Code Date Activated Date Inactivated Comments 03/12/2024 11:16 PM 03/17/2024 12:57 PM * Full Code Date Activated Date Inactivated Comments 01/23/2024 5:51 PM 02/15/2024 6:49 PM * Full Code Date Activated Date Inactivated Comments 07/26/2022 6:41 PM 07/28/2022 7:02 PM Healthcare Agents on File Name Relationship Healthcare Agent Relationshi p Communication Jenn (POA) Rafi Sister Power of Swimmer (P OA) Care Teams Bench Machine Operator Relationship Specialty Start Date End Date Kiana Cole MD [address] [place] [address] PCP - General Internal Medicine 09/16/24 Sylvain Daniels MD Family Medicine 02/15/24
--- OUTSIDE RECORDS SUMMARY | 2024-10-11 19:40 | XMS_ITS | Encounter Summary ---
Author Organization [facility] Address [address] [place] [address] Care Team Providers Care Site Safety Coordinator Name Role Phone Sylvain Daniels MD Unavailable [phone] Kiana Cole MD Primary Care Provider Reason for Visit * Reason Onset Date Comments Constipation 10/02/2024 Encounter Details Date Type Department Care Team (Late st Contact Info) Description 10/02/2024 Nurse Triage [facility] - Family Medicine [address] [place] [address], [address] [place] [address] Kiana Cole MD [address] [place] [address] Constipation (/) Social History Tobacco Use Types Packs/Day Years Used Date Smoking Tobacco: Former Cigars S tarted: 1997 Smokeless Tobacco: Never Comments:3-4 times / [...] Recorded Patient Health Questionnaire-2 Score 0 09/17/2024 [facility] Occupat ional Health - Occupational Stress [...] place to sleep or slept in a fci (including now)? No 05/26/2024 Education Answer Date Recorded What is the highest level of school you have completed or the highest degree you have received? Bachelor's degree (e.g., BA, AB, BS) 08/05/2020 Sex and Gender Information Value Date Recorded Sex Assigned at Not on file Gender Identity Not on file Sexual Orientation Not on file documented as of this encounter Functional Status Functional Status Response Date of [...] person have difficulty concentrating/remembering/making decisions? No 05/26/2024 documented as of this encounter Miscellaneous Notes * Telephone Encounter - Austin Adasm RN - 10/02/2024 11:23 AM CST Left detailed message, HIPAA reviewed. LAPPER HAND * Telephone Encounter - Sheryl Marroquin APRN-CNP - 10/02/2024 11:12 AM TOOL LAPPER HAND Miralax typically takes 1-3 days to work. Increase administration to twice a day. It looks like patient has Senokot laxative on medication list. Please restart this as well twice a day. If no bowel movement in the next 2 days with the above treatment patient may need to be seen in UC for imaging of stool burden and further recommendations If patient develops severe onset abdominal pain, nausea, vomiting or inability to tolerate oral intake patient should go to the emergency room Thank you WILLIE Coy 10/02/2024 11:18 AM LAPPER HAND * Telephone Encounter - Austin Adams RN - 10/02/2024 9:40 AM CST Patient's brother in law called stating patient has not had a BM since 09/22, requesting providers recommendations. States he has been giving him a capful of polyethylene glycol 3350 for two days. States this morning he is passing gas big time . Denies nausea, vomiting, and abdominal pain. Herman wants to know if he should continue the current treatment or if provider has any other recommendations. [id number] - [address] [place] [id number] [address] [place] LAPPER HAND documented in this encounter Plan of Treatment Upcoming Encounters Date Type Department Care Team (Late st Contact Info) Description 10/20/2024 8:00 AM TOOL LAPPER HAND Office Visit [facility] - Family Medicine [address] [facility], [facility] [address] [place] [phone] Kiana Cole MD [address] [place] [address] 11/28/2024 9:00 AM TOOL LAPPER HAND Office Visit [facility] - Neurology [address] [facility], [place] [phone] Aline Finch MD [address] [facility] [place] [address] 02/10/2025 10:00 AM CDT Office Visit [facility] - Cardiology [address] [address] Curly Lay MD [address] [address] documented as of this encounter Visit Diagnoses Not on filedocumented in this encounter Care Teams Site Safety Coordinator Relationship Specialty Start Date End Date Kiana Cole MD [address] [place] [address] PCP - General Internal Medicine 09/16/24 Sylvain Daniels MD Family Medicine 02/15/24 documented as of this encounter
--- OUTSIDE RECORDS SUMMARY | 2024-10-11 19:40 | XMS_ITS | Encounter Summary ---
Author Organization [facility] Address [address] [place] [address] Care Team Providers Care Rod Buster Helper Name Role Phone Sylvain Daniels MD Unavailable [phone] Kiana Cole MD Primary Care Provider Reason for Visit * Reason Onset Date Comments Forms 10/02/2024 Encounter Details Date Type Department Care Team (Late st Contact Info) Description 10/02/2024 Nurse Triage [facility] - Family Medicine [address] [place] [address], [address] [place] [address] Kiana Cole MD [address] [place] [address] Forms Social History Tobacco Use Types Packs/Day Years [...] Recorded Patient Health Questionnaire-2 Score 0 09/17/2024 [facility] of Occupat ional Health - Occupational [...] place to sleep or slept in a group home (including now)? No 05/26/2024 Education Answer Date [...] encounter Miscellaneous Notes * Telephone Encounter - Xin Tabares RN - 10/02/2024 2:25 PM CST Herman notified. Appointment scheduled. OSITE BOND WORKER * Telephone Encounter - hSeryl Marroquin APRN-CNP - 10/02/2024 2:16 PM COMPOSITE BOND WORKER Patient would need appointment for paperwork completion and there are no available appointment - not appropriate for same day- Patient will need to wait for Dr Chapman return Thank you WILLIE Coy 10/02/2024 2:17 PM OSITE BOND WORKER * Telephone Encounter - Xin Tabares RN - 10/02/2024 2:08 PM CST Patient's [id number] Herman calling office to inquire if OR SCRUB TECHSavita Saucedo would be able to complete FMLA extension paperwork for his , patient's sister, Jenn Mckee, as Dr. Nicole is out of the office. He states Dr. Nicole has completed paperwork in the past for patient's other sister, Carol Vazquez. FMLA paperwork in chart under Media for Carol. He states both sisters are patient's caretakers. Informed Herman that I would forward a message to Sheryl to inquire if possible, but that an appointment may be needed to complete. He states he believes that Carol did have to present for an appointment for her FMLA paperwork completion as well. He states Jenn is currently out of town, thereforehe is calling on behalf of her. He states she did forward the [place] paperwork to him, therefore he can fax to the office if needed. OSITE BOND WORKER documented in this encounter Plan of Treatment Upcoming Encounters Date Type Department Care Team (Late st Contact Info) Description 10/20/2024 8:00 AM COMPOSITE BOND WORKER Office Visit [facility] - Family Medicine [address] [facility], [facility] 150 [place] [phone] Kiana Cole MD [address] [place], [place] [phone] 11/28/2024 9:00 AM COMPOSITE BOND WORKER Office Visit [facility] - Neurology [address] [facility], [place] [address] Aline Finch MD [address] [facility] [place] [address] 02/10/2025 10:00 AM CDT Office Visit [facility] - Cardiology [address] [facility] [place] [address] Curly Lay MD [address] [place] [address] documented as of this encounter Visit Diagnoses Not on filedocumented in this encounter Care Teams Rod Buster Helper Relationship Specialty Start Date End Date Kiana Cole MD [address] [place], [place] [phone] PCP - General Internal Medicine 09/16/24 Sylvain Daniels MD Family Medicine 02/15/24 documented as of this encounter
--- OUTSIDE RECORDS SUMMARY | 2024-10-11 19:40 | XMS_ITS | Encounter Summary ---
Author Organization [facility] Address [address] [place] [address] Care Team Providers Care Rubber Press Tender Name Role Phone Sylvain Daniels MD Unavailable [phone] Kiana Cole MD Primary Care Provider Reason for Visit * Reason Onset Date Comments Update 09/25/2024 Home Health 09/25/2024 Encounter Details Date Type Department Care Team (Late st Contact Info) Description 09/25/2024 Nurse Triage [facility] - Family Medicine [address] [place] [address], [address] [place] [address] Kiana Cole MD [address] [place] [address] Update; Home Health Social History Tobacco Use Types Packs/Day Years [...] you are drinking? Patient does not drink 4 Q3: How often do you have si x or more drinks on one occasion? Never 05/25/2024 Overall Financial Resource Strain (CARDIA) Answe r Date Recorded How hard is it for you to pa y for the very basics like food, housing, medical care, and heating? Not hard at all 05/26/2024 PHQ-2 Answer Date Recorded Patient Health Questionnaire-2 Score 0 09/17/2024 [facility] Occupat ional Health - [...] place to sleep or slept in a [place] health care facility (including now)? No 05/26/2024 Education Answer Date [...] Miscellaneous Notes * Telephone Encounter - Xin Tabares, RN - 09/25/2024 3:53 PM CST Anya Archer, PT with [facility], calling office to provide update. She states she is wanting to ensure PCP is aware patient presented to [facility] ER on 09/22. Anya states she went out to visit patient for PT today. She states EMS was called by patient's family on 09/22 after patient had a large BM and felt faint afterwards. Anya states patient is now back at home. No concerns reported. FYI only. Attempted to update Care Everywhere. NSED FINAL EXPENSE AGENTS documented in this encounter Plan of Treatment Upcoming Encounters Date Type Department Care Team (Late st Contact Info) Description 10/20/2024 8:00 AM LICENSED FINAL EXPENSE AGENTS Office Visit [facility] - Family Medicine [address] [facility], [place] [address] [place] [address] Kiana Cole MD [address] [place] [address] 11/28/2024 9:00 AM LICENSED FINAL EXPENSE AGENTS Office Visit [facility] - Neurology [address] [facility], [place] [address] Aline Finch MD [address] [facility] [place] [address] 02/10/2025 10:00 AM CDT Office Visit [facility] - Cardiology [address] [facility] [address] [place] [address] Curly Lay MD [address] [facility] [address] [place] [address] documented as of this encounter Visit Diagnoses Not on filedocumented in this encounter Care Teams Rubber Press Tender Relationship Specialty Start Date End Date Kiana Cole MD [address] [place] [address] PCP - General Internal Medicine 09/16/24 Sylvain Daniels MD Family Medicine 02/15/24 documented as of this encounter
--- OUTSIDE RECORDS SUMMARY | 2024-10-11 19:40 | XMS_ITS | Clinical Summary ---
Author Organization [facility] Address [address] [facility] [place] [address] Care Team Providers Care Barometers Calibrator Name Role Phone Sylvain Daniels MD Unavailable [phone] Kiana Cole MD Primary Care Provider Source Comments [facility],non-owned Affiliates and Associated Physician Practices is amultiple site organization consisting of ambulatory clinics and hospital sitesin [place], [place], [place] and [place]. This disclosure is being madepursuant to the Care Everywhere program and may not contain all information available regarding this patient. Last updated 18.[facility] Allergies Active Allergy Reactions Criticality Noted Date [...] LDL-C. Mika EATON et al. RAFFI. 2013;310(19): 7010-9632 (http://education.LockerDome.ensembli/faq/RUW966) CHOL/HDLC RATIO <5.0 (calc) 5.3High Non HDL [...] needs weight loss desperately and referred to science instructor asked him to stop naproxen Controlled type 2 diabetes m ellitus without complication, without long-term current use of insulin 09/28/2011 Asthma Resolved Problems Problem Noted Date Diagnosed Date Resolved Date Morbid obesity with BMI of 40.0-44.9, adult 08/05/2020 09/17/2024 Wound of sternal region 02/23/201807/16 Superficial postoperative wound infection 02/23/2018 08/05/2020 Overview (02/23/2018): sternum Abnormal stress test 11/12/2017 020 Obesity (BMI 30-39.9) 04/24/20122019 Encounters Date Type Department Care Team Description 10/02/2024 Nurse Triage [facility] [address] [facility], [address] [place] [address] Kiana Cole MD Forms 10/02/2024 Nurse Triage [facility] [address] [facility], [address] [place] [phone] Kiana Cole MD Constipation (/) 09/25/2024 Nurse Triage [facility] [address], [address] [place] [address] Kiana oCle MD Update; Home Health 09/17/2024 8:00 AM TEST CONSULTANT Office Visit [facility] Medicine [address] [facility], [facility] [address] [place] [address] Kiana Cole MD Cerebrovascular accident (CVA), unspecified mechanism (HCC) (Primary Dx); Coronary artery disease involving [place] heart without angina pectoris, unspecified vessel or lesion type; S/P CABG x 3; Essential hypertension; Type 2 diabetes mellitus without complication, with long-term current use of insulin (HCC); Mild persistent asthma without complication (HCC) 09/17/2024 Travel 08/29/2024 9:00 AM TEST CONSULTANT Office Visit [facility] - Neurology [address] [facility], [place] [address] Farhat Enamorado MD Cerebrovascular accident (CVA), unspecified mechanism (HCC) (Primary Dx) 08/29/2024 Travel 08/12/2024 9:40 AM CDT Office Visit [facility] - Cardiology [address] [facility], [facility] [address] [place] [address] Curly Lay MD Coronary artery disease involving [place] heart without angina pectoris, unspecified vessel or lesion type (Primary Dx); Hyperlipidemia, unspecified hyperlipidemia type; Cerebrovascular accident (CVA), unspecified mechanism (HCC); PVC (premature ventricular contraction); Essential hypertension 08/11/2024 Travel from Last 3 Months Immunizations Name Administration Dates Next Due COVID PFIZER 12+YR 30MCG/0.3mL 09/17/2023 Covid Pfizer primary monoval ent 12+ yr 0.3mL Purple cap 09/17/2023 FLU VACCINE TRI IIV3 SPLIT IM (FLUVIRIN) 017 INFLUENZA 06/29/2019,09/03/2018 INFLUENZA VACCINE, QUADR. (F LUZONE; FLULAVAL; FLUARIX; AFLURIA QUADRIVALENT; 6MO+), 0.5 ML (IIV4) 09/17/2023,10/05/2017 PNEUMOCOCCAL PPSV23 11/05/2018,02/29/2012 TD (ADULT), 5 LF TETANUS TOXOID, ADSORBED, PF Family History Medical History Relation Name Comments CAD (Coronary Artery Disease) Father <65 Hypertension Father <65 Cancer - Ovarian Mother 60s None Known Sister 1 Diabetes - Type 2 Sister 2 Relation Name Status Comments Father <65 Mother 60s Sister 1 Alive Sister 2 Alive Social History Tobacco Use Types Packs/Day Years [...] Recorded Patient Health Questionnaire-2 Score 0 09/17/2024 [facility] of Occupat ional Health - Occupational Stress [...] place to sleep or slept in a usp (including now)? No 05/26/2024 Education Answer Date [...] Comments Blood Pressure 124/83 09/17/2024 8:17 AM TEST CONSULTANT Pulse 101 09/17/2024 8:17 AM TEST CONSULTANT Temperature 35.8 ??C (96.5 ??F) 09/17/2024 8:17 AM CS T Respiratory Rate 10 08/29/2024 8:44 AM TEST CONSULTANT Oxygen Saturation 96% 09/17/2024 8:17 AM TEST CONSULTANT Inhaled Oxygen Concentration 21% 02/15/2024 3 :17 PM CDT Weight 120.2 kg (265 lb) 09/17/2024 8:17 AM TEST CONSULTANT Height 193 cm (6' 4 ) 09/17/2024 8:17 AM TEST CONSULTANT Body Mass Index 32.26 09/17/2024 8:17 AM TEST CONSULTANT Plan of Treatment Upcoming Encounters Date Type Department Care Team (Late st Contact Info) Description 10/20/2024 8:00 AM TEST CONSULTANT Office Visit [facility] - Family Medicine [address] [facility], [place] [address] [place] [phone] Kiana Cole MD [address] [place], [place] [phone] 11/28/2024 9:00 AM TEST CONSULTANT Office Visit [facility] - Neurology [address] [facility], [place] [address] Aline Finch MD [address] [facility] [place] [address] 02/10/2025 10:00 AM CDT Office Visit [facility] - Cardiology [address] [facility], [facility] [address] [place] [address] Curly Lay MD [address] [facility] [address] [place] [phone] Health Maintenance Due Date Last Done Comments COLOGUARD (AGES 45-75) - COLON CA SCREENING 1960 CT COLONOGRAPHY - COLON CA SCREENING 1960 FIT - COLON CA SCREENING 1960 FLEX SIG - COLON CA SCREENING 1960 MEDICARE AWV ? 12 MONTHS 1960 ZOSTER VACCINE (1 of 2) 2008 DTAP/TDAP/TD VACCINES (2 - Td or Tdap) 10/15/2017 10/15/2007 Respiratory Syncytial Virus (RSV) Vaccine Pt: or over 60 yrs (1 - Risk 60-74 years 1-dose series) 2018 PNEUMOCOCCAL VACCINE 65+ (2 of 2 - PCV) 11/05/2019 11/05/2018, 02/29/2012 DIABETES - URINE PROTEIN SCREENING 07/23/2021 07/23/2020, 01/20/2019, 11/19/2015 AAA SCREENING 2023 COVID-19 VACCINE ( season) 2024 09/17/2023, 09/17/2023, 03/31/2022, Additional history exists INFLUENZA VACCINE (#1) 2024 , 06/29/2019, 09/03/2018, Additional history exists DIABETES-HGB A1C 03/18/2025 09/17/2024, 05/2024, 01/23/2024, Additional history exists DIABETES-SERUM CREATININE 06/04/20252023, 06/03/2024, 06/02/2024, Additional history exists DIABETES-FOOT EXAM WITH MONOFILAMENT 09/17/2025 09/17/2024, 09/17/2023, 05/10/2022, Additional history exists DIABETES RETINOPATHY SCREENING 08/11/2026 08/11/2024 COLON MONITORING 11/12/2030 11/12/2020, 11/12/2020 COLONOSCOPY - COLON CA SCREENING 11/12/2030 11/12/2020, 11/12/2020 Colorectal Cancer Screening 11/12/2030 HEPATITIS C SCREENING Completed 07/23/2020 HIV SCREENING Completed 07/23/2020 DEPRESSION SCREENING Completed 05/22/2024, 10/18/2022, 05/10/2022 HEPATITIS B VACCINE Aged Out No longe r eligible based on patient's age to complete this topic HIB VACCINE Aged Out No longer eligi ble based on patient's age to complete this topic HPV VACCINE Aged Out No longer eligi ble based on patient's age to complete this topic MENINGOCOCCAL VACCINE Aged Out No omar lloyd eligible based on patient's age to complete this topic Procedures Procedure Name Priority Date/Time Associated Diagnosis Comments HEMOGLOBIN A1C - POINT OF CARE (AMB) [facility] Routine 09/17/2024 9:38 AM TEST CONSULTANT Type 2 diabetes mellitus without complication, with long-term current use of insulin (HCC) EYE EXAM 08/11/2024 CARDIAC PROCEDURE ORDER 07/18/2024 CARDIAC PROCEDURE ORDER 07/15/2024 BASIC METABOLIC PANEL (CALCIUM TOTAL) Routine 06/04/2024 11:30 AM CDT ENDOSCOPY, COLON, SCREENING Routine 11/12/2020 12:12 PM TEST CONSULTANT MICROALB/CREAT RATIO URINE RANDOM PANEL 07/23/2020 6:49 AM CDT HEPATITIS C AB W/RFLX TO HCV RNA QN PCR 07/23/2020 6:49 AM CDT HIV-1 HIV-2 ANTIBODY + HIV P24 AG PANEL 07/23/2020 6:49 AM CDT from Last 3 Months or Most Recently Relevant to Health Maintenance Results * (ABNORMAL) HEMOGLOBIN A1C - POINT OF CARE (AMB) [facility] (09/17/2024 9:38 AM TEST CONSULTANT) Pathologist [facility] Hemoglobin A1c POCT 6.2(A) 4.2 - 5.8 % QC Verified Yes Yes Blood BLOOD SPECIMEN / Unknown 09/17/2024 9:38 AM TEST CONSULTANT Kiana Cole MD LAB - POINT OF [...] - 26 mg/dL 06/04/2024 12:27 PM CDT [facility] Creatinine 0.78 0.71 - 1.16 mg/dL 06/04/2024 12:27 PM CDT [facility] Sodium 135(L) 136 - 145 mmol/L 06/04/2024 12:27 PM [facility] Potassium 4.1 3.5 - 4.5 mmol/L 06/04/2024 12:27 PM [facility] Chloride 102 98 - 107 mmol/L 06/04/2024 12:27 PM [facility] CO2 25 22 - 29 mmol/L 06/04/2024 12:27 PM [facility] Glucose 138(H) 70 - 115 mg/dL 06/04/2024 12:27 PM [facility] Calcium 9.6 8.4 - 10.2 mg/dL 06/04/2024 12:27 PM [facility] Anion Gap 8 6 - 16 06/04/2024 12:27 PM [facility] BUN/Creatinine Ratio 23 7 - 23 06/04/2024 12:27 PM [facility] Osmolality Calculated 284 275 - 295 mOsm/kg 06/04/2024 12:27 PM [facility] eGFR by CKD-EPI >90 >=90 mL/min/1.7 3 m2 06/04/2024 12:27 PM [facility] Blood BLOOD SPECIMEN / Unknown Lab Venipuncture / Unknown 06/04/2024 11:30 AM CDT 06/04/2024 11:51 AM [facility] Jason Coppola MD LAB - CHEMISTRY CHRISTIAN RAZO [facility] Organization Address [facility]/State/ZIP Co de Phone Number [facility] [address] [place] [address], [facility] [phone] * ENDOSCOPY, COLON, SCREENING (11/12/2020 12:12 PM TEST CONSULTANT) Report Endoscopy POC Endoscopy Department Report _ [...] in this report are preliminary and upon order caller review may be revised to meet current compliance requirements. Jodi Vernon MD 11/12/2020 12:57:40 PM Note Initiated On: 11/12/2020 12:12 PM Number of Addenda: 0 ? [facility] ? [address] [place], [place] [id number] [place] [address] [employer]OVATION 11/12/2020 12:1 2 PM TEST CONSULTANT Jodi Vernon MD GI PROCEDURE ORDER GISSEL [facility] [employer] * HEPATITIS C AB W/RFLX TO HCV RNA QN PCR (07/23/2020 6:49 AM CDT) Pathologist [facility] Hepatitis C Antibody NON-REACTI VE NON-REACT ELIDA [facility] Signal to Cut-Off 0.09 <1.00 [facility] Comment: HCV antibody was non-reactive. There is no laboratory evidence of HCV infection. In most cases, no further action is required. However, if recent HCV exposure is suspected, a test for HCV RNA (test code 60170) is suggested. For additional information please refer to http://Careerminds Group.Totsy/faq/IRY82h8 (This link is being provided for informational/ educational purposes only.) Test Performed at: [facility] [phone] EH PURVIS DO,MPH 07/23/2020 6:49 AM CDT 07/23/2020 6:51 AM CDT Lisy Olmedo MD LAB - VOCATIONAL GUIDANCE COUNSELOR RY ORDERABLES Performing Organization Address City/State/RUST Co de Phone Number [facility] [address] [place] [address] * HIV-1 HIV-2 ANTIBODY + HIV P24 AG PANEL (07/23/2020 6:49 AM CDT) Pathologist [facility] HIV Screen 4th Generation w Reflex NON-REACT [...] ?? For additional information please refer to http://Careerminds Group.Totsy/faq/IRK019 (This link is being provided for informational/ educational purposes only.) The performance of this assay has not been clinically validated in patients less than 2 years old. Test Performed at: [place] ??[phone] EH PURVIS DO,MPH 07/23/2020 6:49 AM CDT 07/23/2020 6:51 AM CDT Lisy Olmedo MD LAB - VOCATIONAL GUIDANCE COUNSELOR RY ORDERABLES Performing Organization Address [facility] de Phone Number [facility] [address] [place] [address] * MICROALB/CREAT RATIO URINE RANDOM PANEL (07/23/2020 [...] within a diagnostic category. Test Performed at: [facility] [address] [place], [place] ??[phone] EH PURVIS DO,MPH 07/23/2020 6:49 AM CDT 07/23/2020 6:51 AM CDT Lisy Olmedo MD LAB - URINE C HEMISTRY ORDERABLES Performing Organization Address [facility]/[place] Co de Phone Number [facility] [address] [place] [address] from Last 3 Months or Most Recently Relevant to Health Maintenance Advance Directives Documents on File Type Date Recorded Patient Logging Rafter Laborer Expl anation Durable HCPOA 09/17/2024 4:08 PM [...] Communication Jenn (POA) Rafi Sister Power of Audio Technician (P OA) Care Teams Barometers Calibrator Relationship Specialty Start Date End Date Kiana Cole MD [address] [place] [address] PCP - General Internal Medicine 09/16/24 Sylvain Daniels MD Family Medicine 02/15/24
--- OUTSIDE RECORDS SUMMARY | 2024-10-11 19:41 | XMS_ITS | Encounter Summary ---
Author Organization [facility] Address [address] [place] [address] Care Team Providers Care Industrial Robotics Mechanic Name Role Phone None, Physician Primary Care Provider Sylvain Hopper MD Unavailable [phone] Reason for Visit * Reason Onset Date Comments Opened In Error 04/30/2024 Encounter Details Date Type Department Care Team (Late st Contact Info) Description 04/30/2024 Telephone [facility] Medical [facility] - Internal Medicine [address] [place] [address] [place] [address] None, Physician [address] [place] [address] Opened In Error Social History Tobacco Use Types Packs/Day Years Used Date Smoking Tobacco: Former Cigars S tarted: 1997 Smokeless Tobacco: Never Comments:3-4 times / month-2 020 says 1x/month Alcohol Use Standard Drinks/Week Comments Not Currently 10 (1 standard drink = 0.6 oz pu re alcohol) 0-50+ a week AUDIT-C Answer Date Recorded Q1: How often do you have a drink containing alcohol? Patient unable to answer 01/23/2024 Q2: How many drinks containi ng alcohol do you have on a typical day when you are drinking? Patient unable to answer Q3: How often do you have si x or more drinks on one occasion? Patient unable to answer 01/23/2024 Overall Financial Resource Strain (CARDIA) Answe r Date Recorded How hard is it for you to pa y for the very basics like food, housing, medical care, and heating? Not hard at all 01/24/2024 PHQ-2 Answer Date Recorded Patient Health Questionnaire-2 Score 0 09/17/2023 Hunger Vital Sign Answer Date Recorded Within the past 12 months, y ou worried that your food would run out before you got the money to buy more. Never true 01/24/20 24 Within the past 12 months, t he food you bought just didn't last and you didn't have money to get more. Never true 01/24/2024 PRAPARE - Transportation Answer Date Re corded In the past 12 months, has l ack of transportation kept you from medical appointments or from getting medications? No 01/13 In the past 12 months, has l ack of transportation kept you from meetings, work, or from getting things needed for daily living? No 01/24/2024 Housing Stability Vital Sign Answer Eric e Recorded In the last 12 months, was t here a time when you were not able to pay the mortgage or rent on time? No 01/24/2024 Number of Places Lived in the Last Year Not on f ile 01/24/2024 In the last 12 months, was t here a time when you did not have a steady place to sleep or slept in a prison (including now)? No 01/24/2024 Education Answer Date Recorded What is the [...] or have serious hearing difficult y? No 01/24/2024 Is person blind or have serious difficulty seein g? No 01/24/2024 Does person have serious dif ficulty walking/climbing stairs? No 01/24/2024 Does person have difficulty dressing/bathing? No 01/24/2024 Does person have difficulty doing errands alone? Yes 01/24/2024 Cognitive Status Response Date of Assessm ent Does person have difficulty concentrating/remembering/making decisions? No 01/24/2024 documented as of this encounter Plan of Treatment Upcoming Encounters Date Type Department Care Team (Late st Contact Info) Description 10/20/2024 8:00 AM KNIT GOODS PRESS HAND Office Visit [facility] - Family Medicine [address] [place] [phone] Kiana Cole MD [address] [place], [place] [phone] 11/28/2024 9:00 AM KNIT GOODS PRESS HAND Office Visit [facility] - Neurology [address] [place] [phone] Aline Finch MD [address] [facility] [place] [address] 02/10/2025 10:00 AM CDT Office Visit [facility] - Cardiology [address] [facility], [facility] [address] [place] [phone] Curly Lay MD [id number] [place] [address] documented as of this encounter Visit Diagnoses Not on filedocumented in this encounter Care Teams Industrial Robotics Mechanic Relationship Specialty Start Date End Date None, Physician [facility] [place] [address] PCP - General 02/15/24 05/16/24 Sylvain Daniels MD [facility] [place] [address] Family Medicine 02/15/24 documented as of this encounter
--- OUTSIDE RECORDS SUMMARY | 2024-10-11 19:41 | XMS_ITS | Encounter Summary ---
Author Organization [facility] Address [address] [place] [address] Care Team Providers Care Business Account Specialist Name Role Phone Sylvain Daniels MD Unavailable [phone] Sheree Cole MD Primary Care Provider Reason for Visit * Reason Comments Establish Care Encounter Details Date Type Department Care Team (Late st Contact Info) Description 05/22/2024 1:00 PM CDT Office Visit [facility] Medical [facility] - Family Medicine [address] [address] Sheree Cole MD [address] [place], [place] [phone] Encounter to establish care (Primary Dx); Essential hypertension; Coronary artery disease involving [place] heart without angina pectoris, unspecified vessel or lesion type; S/P CABG x 3; Cerebrovascular accident (CVA), unspecified mechanism (HCC); Impaired cognition; Dysphagia following cerebral infarction; Problem with highly complex treatment regime; Other specified diabetes mellitus with other specified complication, without long-term current use of insulin (HCC) Social History Tobacco Use Types Packs/Day Years [...] Date Recorded Patient Health Questionnaire-2 Score 0 05/22/2024 Hunger Vital Sign Answer Date Recorded Within [...] slept in a fpc (including now)? No 01/24/2024 Education Answer Date Recorded What is the highest level of school you have completed or the highest degree you have received? Bachelor's degree (e.g., BA, AB, BS) 08/05/2020 Sex and Gender Information Value Date Recorded Sex Assigned at Not on file Gender Identity Not on file Sexual Orientation Not on file documented as of this encounter Last Filed Vital Signs Vital Sign Reading Time Taken Comments Blood Pressure 125/86 05/22/2024 1:32 PM CDT Pulse 84 05/22/2024 1:32 PM CDT Temperature 36.6 ??C (97.8 ??F) 05/22/2024 1:32 PM CD T Respiratory Rate - - Oxygen Saturation 97% 05/22/2024 1:32 PM CDT Inhaled Oxygen Concentration - - Weight 129.3 kg (285 lb) 05/22/2024 1:32 PM CDT Height 193 cm (6' 4 ) 05/22/2024 1:32 PM CDT Body Mass Index 34.69 05/22/2024 1:32 PM CDT documented in this encounter Functional Status Functional Status Response [...] No 01/24/2024 documented as of this encounter Patient Instructions * Patient Instructions* Jaci Buckner MA - 05/22/2024 7:55 AM CDT It is important for you to feel that you have received the best care possible today. If for any reason you feel your care was not exceptional please let us know. You may do this by calling and requesting to leave a message for me to return your call or you may also receive a satisfaction survey viae-mail or U.S. Mail. I encourage you to respond to this confidential survey as your feedback helps us provide that exceptional care you deserve. It is very important that you compare your medication list from your visit with actual medications you have at home. If there are any discrepancies or you are uncertain what a certain medication is and why you are taking it please let us know as soon as possible. Thank you for choosing us to provide your healthcare needs! JENNIFER Morrison documented in this encounter Progress Notes * Sheree Cole MD - 05/22/2024 3:41 PM CDT Date: 05/22/2024 Pt Name: Yaya Vazquez Jr. : 1960 AGE: [age] year old SEX: male CC: Establish Care History of Present Illness:63 year oldyear old,male presents to the office In a wheelchair brought by his sister who has POA. History obtained from sister as patient is not able to give history due to impaired cognition. Patient was seen in [facility] in [place] by Radha Donovan NP-office visit note from 09/17/2023 reviewed. In January patient had stroke and was admitted to [facility] 01/23/24-02/15/2024, then transferred to [facility] 02/15/2024- 03/12/2024, then patient wasin [facility] and then [facility]11[facility]05[facility]17/20[facility]. On 05/17/2024 patient fell and was in emergency room at [facility](note reviewed). Family did not agree for magaly won to return to [facility], patient was not formally admitted to hospital, family took patientto their home to [place], [place]. For 3 days while at home patient did not receive his medications, via PEG tube patient is receiving Glucerna 75 mL continues feeding with feedings stopped between 11:00 p.m. and 5:00 a.m. Sister states that medication was not ordered by ER physician and when she contacted former PCP they were not helpful . Yesterday patient was visited by Esther Kyle MD at home-primary care physician from [facility] telephone [phone] who established care with patient. Sister states that physician [facility] in [place]-but medication was not picked up yet. Yesterday blood pressure at home 120/84 without amlodipine 10 mg daily and hydralazine 10 mg 3 times a day for last 3 days, in the office today blood pressure 125/86 with heart rate 84, last 3 days glucose at home checked in the morning 145, 156, 145, patient is supposed to be on Humulin N 13 units twice a day and Humalog quick pen based on sliding scale. Hemoglobin A1c 7.1 point of care obtained in the office today. Patient leaning to the right side in the wheelchair, does not answer questions, patient is coughing. Sister states that soft puree foodwas stopped as ER physician was concerned regarding aspiration. Sister states that residential homehealth services from [place] were ordered by physician yesterday and are planning to come to the house tomorrow also occupational therapy physical therapy and speech therapy was ordered by physician for evaluation. I discussed with that current state of health of patient requires prison versus hospitalization to adjust treatment and patient's care coordination. plans to call Dr. Esther Kyle today to coordinate care as well as pharmacy to picker operator medication as well as glucometer(sisterwas using her own glucometer to monitor glucose at home). While living waiting room sister cold EMS. Office personal witnessed patient being taking in the ambulance. Allergies Allergen Reactions Lisinopril Angioedema Lisinopril Other and Urticaria Hives Penicillins Other and Urticaria Hives Pcn [Penicillins] Swelling eyes swelled shut 50 years ago Penicillin V Rash Patient Active Problem List: CAD (coronary artery disease) Essential hypertension S/P CABG x 3 Other chest pain Controlled type 2 diabetes mellitus without complication, without long-term current use of insulin (HCC) Asthma (HCC) Hyperlipidemia Morbid obesity with BMI of 40.0-44.9, adult (HCC) Nocturia Weight gain Acute hypoxemic respiratory failure (HCC) Altered mental status, unspecified altered mental status type Hypoxia Staphylococcus aureus infection Cerebrovascular accident (HCC) Dysphagia following cerebral infarction Impaired cognition Problem with highly complex treatment regime Outpatient Medications Prior to Visit Medication Sig Dispense Refill acetaminophen (Tylenol) 325 MG tablet 2 (two) tablets by Per G Tube route every 6 hours as needed albuterol (Proventil;Ventolin) (2.5 MG/3ML) 0.083% nebulizer solution Inhale 2.5 (two and one-half)mg by mouth every 4 hours as needed for Shortness of Breath or Wheezing albuterol-ipratropium (Duo-Neb) 0.5-2.5 (3) MG/3ML nebulizer solution Inhale 3 mL by mouth every 6 hours Reasons: Asthma amLODIPine (Norvasc) 10 MG tablet 1 (one) tablet by Enteral Tube route once daily aspirin (Aspirin) 81 MG chew tablet 1 (one) tablet by Enteral Tube route once daily atorvastatin (Lipitor) 40 MG tablet 1 (one) tablet by Enteral Tube route at bedtime atropine 1 % ophthalmic solution Dissolve 1 (one) drop under the tongue every 8 hours busPIRone (Buspar) 5 MG tablet 1 (one) tablet by Per G Tube route 3 times daily clopidogrel (plaVIX) 75 MG tablet 1 (one) tablet by Enteral Tube route once daily famotidine (Pepcid) 20 MG tablet 1 (one) tablet by Enteral Tube route 2 times daily folic acid (Folvite) 1 MG tablet 1 (one) tablet by Enteral Tube route once daily heparin 5000 UNIT/ML injection Inject 1 mL subcutaneously 2 times daily hydrALAZINE (Apresoline) 10 MG tablet 1 (one) tablet by Per G Tube route every 8 hours insulin aspart (NovoLOG) pen Inject 0 (zero) Units to 18 (eighteen) Units subcutaneously every 6 hours (Patient not taking: Reported on 05/22/2024) insulin lispro (HumaLOG) 100 UNIT/ML vial Inject 0 (zero) Units to 12 (twelve) Units subcutaneouslyevery 6 hours insulin lispro (HumaLOG;ADMelog) 100 UNIT/ML pen Sliding scale insulin NPH pen Inject 15 (fifteen) Units subcutaneously every 12 hours insulin regular human (HumuLIN R; NovoLIN R) 100 UNIT/ML injection 13 (thirteen) Units once daily loratadine (Claritin) 10 MG tablet 1 (one) tablet by Per G Tube route once daily modafinil (Provigil) 200 MG tablet 1 (one) tablet by Enteral Tube route every morning Multiple Vitamin (Thera) tablet 1 (one) tablet by Per G Tube route once daily multiple vitamins with minerals tablet 1 (one) tablet by Enteral Tube route once daily QUEtiapine (SEROquel) 25 MG tablet Insert 1 (one) tablet into appropriate tube 2 times daily as needed senna-docusate (Senokot-S) 8.6-50 MG tablet 2 (two) tablets by Enteral Tube route 2 times daily sodium chloride 3 % nebulizer solution Inhale 3 mL by mouth every 6 hours (Patient not taking: Reported on 05/22/2024) thiamine (Vitamin B-1) 100 MG tablet 1 (one) tablet by Enteral Tube route once daily No facility-administered medications prior to visit. Past Medical History: Diagnosis Date Anemia 01/2018 Asthma ([facility]) Chest congestion 08/05/2020 Confusional arousals 08/05/2020 Controlled type 2 diabetes mellitus without complication, without long-term current use of insulin ([facility]) 09/28/2011 Coronary artery disease involving [place] heart with angina pectoris ([facility]) 09/04/2018 Cough syncope 2017 Daytime sleepiness 08/05/2020 Essential hypertension 01/23/2018 HTN (hypertension) Hyperlipidemia 08/05/2020 Inadequate sleep hygiene 08/05/2020 Morbid obesity with BMI of 40.0-44.9, adult ([facility]) 08/05/2020 Nocturia 08/05/2020 Obesity (BMI 30-39.9) 04/24/2012 Other chest pain 09/04/2018 S/P CABG x 3 01/24/2018 Snoring 08/05/2020 Stroke ([facility]) Superficial postoperative wound infection 02/23/2018 sternum Type 2 diabetes mellitus with retinopathy without macular edema ([facility]) Wears glasses 08/05/2020 Weight gain 08/05/2020 40# past 6-8 months-covid Wound of sternal region 02/23/2018 Past Surgical History: Procedure Laterality Date ANGIOPLASTY COLONOSCOPY N/A 11/12/2020 N/A; COLONOSCOPY SCREEN Coronary Artery Bypass Graft N/A 01/24/2018 N/A; Coronary artery bypass graft x 3 ENDOSCOPY, UPPER N/A 01/30/2024 N/A; ESOPHAGOGASTRODUODENOSCOPY (EGD) WITH PEG PLACEMENT ENDOSCOPY, UPPER N/A 03/17/2024 N/A; ESOPHAGOGASTRODUODENOSCOPY (EGD) WITH PEG PLACEMENT Tonsillectomy Social History Socioeconomic History Marital status: Legally Spouse name: Not on file Number of children: 1 Years of education: 16 Highest education level: Bachelor's degree (e.g., BA, AB, BS) Occupational History 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 [employer] 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 Comic Reply Tobacco Use Smoking status: Former Types: Cigars Start date: 1997 Smokeless tobacco: Never Tobacco comments: 3-4 times / month-2020 says 1x/month Vaping Use Vaping Use: Never used Substance and Sexual Activity Alcohol use: Not Currently Alcohol/week: 10.0 standard drinks of alcohol Types: 10 Standard drinks or equivalent per week Comment: 0-50+ a week Drug use: Not Currently Types: Marijuana Sexual activity: Not Currently Other Topics Concern Not on file Social History Narrative Merged History Encounter Lives in apartment alone Pets none Hobby watch tv, golf Social Determinants of Health Financial Resource Strain: Low Risk (01/24/2024) Overall Financial Resource Strain (CARDIA) Difficulty of Paying Living Expenses: Not hard at all Food Insecurity: No Food Insecurity (01/24/2024) Hunger Vital Sign Worried About Running Out of Food in the Last Year: Never true Ran Out of Food in the Last Year: Never true Transportation Needs: No Transportation Needs (01/24/2024) PRAPARE - Transportation Lack of Transportation (Medical): No Lack of Transportation (Non-Medical): No Stress: Not on file Housing Stability: Unknown (01/24/2024) Housing Stability Vital Sign Unable to Pay for Housing in the Last Year: No Number of Places Lived in the Last Year: Not on file Unstable Housing in the Last Year: No Family History Problem Relation Name Age of Onset Hypertension Father <65 CAD (Coronary Artery Disease) Father <65 Cancer - Ovarian Mother 60s None Known Sister Diabetes - Type 2 Sister The patient's past medical history, family history, social history, current medications, and allergies were reviewed with the patient. ROS: Pertinent items are noted in HPI. PHYSICAL EXAM: BP 125/86 (BP Location: Left arm, Patient Position: Sitting, BP Cuff Size: Large adult) Pulse 84 Temp 97.8 ??F (36.6 ??C) (Temporal) Ht 1.93 m (6' 4 ) Wt 129.3 kg (285 lb) SpO2 97% BP 125/86 (BP Location: Left arm, Patient Position: Sitting, BP Cuff Size: Large adult) Pulse 84 Temp 97.8 ??F (36.6 ??C) (Temporal) Ht 1.93 m (6' 4 ) Wt 129.3 kg (285 lb) SpO2 97% BMI 34.69 kg/m?? General appearance: Patient alert, leaning to the right side in the wheelchair, transfer belt on his abdomen Heart: regular rhythm, distant S1 and S2, without murmurs Lungs: breath sounds diffusely distant and symmetric; no rales or wheezes Abdomen: Left side PEG tube placed covered with fresh dressing Extremities: no pretibial edema Results : Office Visit on 05/22/24 HEMOGLOBIN A1C - POINT OF CARE (AMB) Result Value Ref Range Hemoglobin A1c POCT 7.1 % Expiration Date 01/23/2026 Lot # [id number] QC Verified Yes Yes ASSESSMENT: ICD-10-CM 1. Encounter to establish care Z00.00 2. Essential hypertension I10 3. Coronary artery disease involving [place] heart without angina pectoris, unspecified vessel or lesion type I25.10 4. S/P CABG x 3 Z95.1 5. Cerebrovascular accident (CVA), unspecified mechanism (HCC) I63.9 6. Impaired cognition R41.89 7. Dysphagia following cerebral infarction I69.391 8. Problem with highly complex treatment regime Z91.199 9. Other specified diabetes mellitus with other specified complication, without long-term current use of insulin (HCC) E13.69 HEMOGLOBIN A1C - POINT OF CARE (AMB) PLAN: Orders Placed This Encounter HEMOGLOBIN A1C - POINT OF CARE (AMB) No follow-ups on file. Patient Instructions It is important for you to feel that you have received the best care possible today. If for any reason you feel your care was not exceptional please let us know. You may do this by calling and requesting to leave a message for me to return your call or you may also receive a satisfaction survey viae-mail or U.S. Mail. I encourage you to respond to this confidential survey as your feedback helps us provide that exceptional care you deserve. It is very important that you compare your medication list from your visit with actual medications you have at home. If there are any discrepancies or you are uncertain what a certain medication is and why you are taking it please let us know as soon as possible. Thank you for choosing us to provide your healthcare needs! JENNIFER Morrison MD Disclaimer: This dictation was created using voice recognition software. I have made every reasonable attempt to avoid errors. Please note that there may be variance in spelling, grammar and syntax because of the voice recognition system and hardware. If there any concerns please contact Sheree Cole M.D.directly * Jaci Buckner MA - 05/22/2024 1:28 PM CDT Images from the original note were not included. BENJI-7 {Vanishing tip- Click here to Update BENJI-7 then refresh note (Ctrl+F11) 05/22/2024 1:27 PM 08/03/2022 3:17 PM BENJI-7 Nervous? 0 Control worrying? 0 Worry too much? 0 Trouble relaxing? 0 Restless? 0 Irritable? 0 Afraid? 0 Total Score (0-5 none; 6-10 mild; 11-15 moderate; 16-21 severe) 0 Difficulty Level Not difficult at all Nervous? 0 Control worrying? 0 Worry too much? 0 Trouble relaxing? 0 Restless? 0 Irritable? 0 Afraid? 0 Total Score (0-4: Minimal; 5-9: Mild; 10-14: Moderate; 15 or greater: Severe) 0 Depression: PHQ-2:Patient Health Questionnaire-2 Score: 0 PHQ-9: documented in this encounter Miscellaneous Notes * Addendum Note - Sheree Cole MD - 05/22/2024 4:19 PM CDTAddended by: SHEREE COLE on: 05/22/2024 04:19 PM Modules accepted: Level of Service documented in this encounter Plan of Treatment Upcoming Encounters Date Type Department Care Team (Late st Contact Info) Description 10/20/2024 8:00 AM MENTAL HEALTH TECHNICIAN Office Visit [facility] - Family Medicine [address] [address] Sheree Cole MD [address] [place], [place] [phone] 11/28/2024 9:00 AM MENTAL HEALTH TECHNICIAN Office Visit [facility] - Neurology [facility] [facility] [place] [address] Aline Finch MD [address] [facility] [place] [address] 02/10/2025 10:00 AM CDT Office Visit [facility] - Cardiology [address] [facility] [place] [phone] Curly Lay MD [address] [facility] [address] [place] [phone] documented as of this encounter Procedures Procedure Name Priority Date/Time Associated Diagnosis Comments HEMOGLOBIN A1C - POINT OF CARE (AMB) Routine 05/22/2024 2:19 PM CDT Other specified diabetes mellitus with other specified complication, without long-term current use of insulin (HCC) documented in this encounter Results * HEMOGLOBIN A1C - POINT OF CARE (AMB) (05/22/2024 2:19 PM CDT) Hemoglobin A1c POCT 7.1 % Expiration Date 01/23/2026 Lot # [id number] QC Verified Yes Yes Blood BLOOD SPECIMEN / Unknown 05/22/2024 2:19 PM CDT Sheree Cole MD LAB - POINT OF CARE ORDERABLES documented in this encounter Visit Diagnoses Diagnosis Encounter to establish care- Primary Reserved for inherently not codable concepts WITHOUT codable children Essential hypertension Coronary artery disease involving [place] heart without angina pectoris, unspecified vessel or lesion type S/P CABG x 3 Postsurgical aortocoronary bypass status Cerebrovascular accident (CVA), unspecified mechanism (HCC) Impaired cognition Unspecified persistent mental disorders due to conditions classified elsewhere Dysphagia following cerebral infarction Dysphagia, late effect of cerebrovascular disease Problem with highly complex treatment regime Other specified diabetes mellitus with other specified complication, without long-term current use of insulin (HCC) documented in this encounter Care Teams Business Account Specialist Relationship Specialty Start Date End Date Sheree Cole MD [address] [place] [address] PCP - General Internal Medicine 05/22/24 08/04/24 Sylvain Daniels MD Family Medicine 02/15/24 documented as of this encounter
--- OUTSIDE RECORDS SUMMARY | 2024-10-11 19:41 | XMS_ITS | Encounter Summary ---
Author Organization [facility] Health Address [address] [place] [address] Care Team Providers Care Car Driver Name Role Phone Sylvain Daniels MD Unavailable [phone] Sylvain Daniels MD Primary Care Provider [phone] Reason for Referral * Home Health Care (Routine) - Authorized Specialty Diagnoses / Procedures Referred By Contmegan t Referred To Contact Home Health Services Diagnoses Fall, initial encounter Cerebrovascular accident (CVA), unspecified mechanism (HCC) Rosario Gibbons MD [address] [place] [address] [facility] [address] [place] [address] Referral ID Status Reason Start Date Expiration Date Visits Requested Visits Authorized [id number] Authorized Specialty Services Required 05/18/2024 05/18/2025 999 999 Reason for Visit * Reason Comments Fall Pt bibems c/o snf wi th unwitnessed fall yesterday,when he ws trying to gett something,has back pain.now.A&O x 3-4.The patient has a history of of stroke,(+) thinners Encounter Details Date Type Department Care Team (Late st Contact Info) Description 05/17/2024 10:17 AM CDT - 05/19/2024 9:11 PM CDT Emergency ER at [address] [id number] Sarah Betancur MD [address] [place] [address] Jean Carlos Pineda MD [address] [facility] [address] Rosario Gibbons MD [address] [place] [address] Aiyana David MD [address] [place], [place] [id number] Tarah Mejia MD [address] [place] [address] [facility] [place] [address] Chanell Bray MD [address] [place] [address] Cony Petit MD [address] [place] [address] Fall, initial encounter; Cerebrovascular accident (CVA), unspecified mechanism (HCC); Impaired ambulation Discharge Disposition: Home or Self Care Social History Tobacco Use Types Packs/Day Years [...] slept in a usp (including now)? No 01/24/2024 Education Answer Date [...] Sign Reading Time Taken Comments Blood Pressure 147/114 05/19/2024 8:01 PM CDT Pulse 70 05/19/2024 1:01 PM CDT Temperature 36.9 ??C (98.4 ??F) 05/18/2024 6 :12 AM CDT Respiratory Rate 21 05/19/2024 1:01 PM CDT Oxygen Saturation 90% 05/19/2024 8:0 1 PM CDT Inhaled Oxygen Concentration - - Weight 102.1 kg (225 lb) 05/19/2024 10: 07 AM CDT Height 182.9 cm (6' 0.01 ) 05/19/2024 1 0:00 AM CDT obtained from chart Body Mass Index 30.51 05/19/2024 10:00 AM CDT documented in this encounter Functional Status [...] No 01/24/2024 documented as of this encounter Discharge Instructions * Discharge Instructions* Cony Petit MD - 05/19/2024 4:37 PM CDT Please take all medications as prescribed and call your primary care doctor tomorrow morning to follow-up and schedule a follow-up appointment as soon as possible. It is very important that you do not take any food or drink by mouth until you have a formal swallow study performed. Unfortunately, we were unable to get this done from the emergency department, so you should discuss this with your primary care doctor tomorrow to have it scheduled as an outpatient. If you develop any new concerning symptoms or severe worsening symptoms, please return to the ER. documented in this encounter Medications at Time of Discharge Medication Sig Dispensed Refills Start Date End Date acetaminophen (Tylenol) 325 MG tablet 2 (two) tablets by Per G Tube route every 6 hours as needed 03/12/2024 albuterol (Proventil;Ventolin) (2.5 MG/3ML) 0.083% nebulizer solution Inhale 2.5 (two and one-half) mg by mouth every 4 hours as needed for Shortness of Breath or Wheezing 02/15/2024 multiple vitamins with minerals tablet 1 (one) tablet by Enteral Tube route once daily 02/16/2024 QUEtiapine (SEROquel) 25 MG tablet Insert 1 (one) tablet into appropriate tube 2 times daily as needed 04/11/2024 senna-docusate (Senokot-S) 8.6-50 MG tablet 2 (two) tablets by Enteral Tube route 2 times daily 02/15/2024 albuterol-ipratropium (Duo-Neb) 0.5-2.5 (3) MG/3ML nebulizer solutionIndications:A sthma Inhale 3 mL by mouth every 6 hours Reasons: Asthma 02/15/2024 09/17/2024 amLODIPine (Norvasc) 10 MG tablet 1 (one) tablet by Enteral Tube route once daily 02/16/2024 09/17/2024 aspirin (Aspirin) 81 MG chew tablet 1 (one) tablet by Enteral Tube route once daily 02/16/2024 09/17/2024 atorvastatin (Lipitor) 40 MG tablet 1 (one) tablet by Enteral Tube route at bedtime 02/15/2024 09/17/2024 atropine 1 % ophthalmic solution Dissolve 1 (one) drop under the tongue every 8 hours 03/12/2024 06/04/2024 busPIRone (Buspar) 5 MG tablet 1 (one) tablet by Per G Tube route 3 times daily Taking bid 03/12/2024 09/17/2024 clopidogrel (plaVIX) 75 MG tablet 1 (one) tablet by Enteral Tube route once daily 02/16/2024 09/17/2024 famotidine (Pepcid) 20 MG tablet 1 (one) tablet by Enteral Tube route 2 times daily 02/15/2024 09/17/2024 folic acid (Folvite) 1 MG tablet 1 (one) tablet by Enteral Tube route once daily 02/16/2024 09/17/2024 heparin 5000 UNIT/ML injection Inject 1 mL subcutaneously 2 times daily 02/15/2024 06/04/2024 hydrALAZINE (Apresoline) 10 MG tablet 1 (one) tablet by Per G Tube route every 8 hours 03/12/2024 024 insulin aspart (NovoLOG) pen Inject 0 (zero) Units to 18 (eighteen) Units subcutaneously every 6 hours 02/15/2024 06/04/2024 insulin lispro (HumaLOG) 100 UNIT/ML vial Inject 0 (zero) Units to 12 (twelve) Units subcutaneously every 6 hours 03/12/2024 08/29/2024 insulin NPH pen Inject 15 (fifteen) Units subcutaneously every 12 hours 02/15/2024 08/29/2024 loratadine (Claritin) 10 MG tablet 1 (one) tablet by Per G Tube route once daily 04/11/2024 09/17/2024 modafinil (Provigil) 200 MG tablet 1 (one) tablet by Enteral Tube route every morning 02/16/2024 06/04/2024 Multiple Vitamin (Thera) tablet 1 (one) tablet by Per G Tube route once daily 03/13/2024 06/04/2024 sodium chloride 3 % nebulizer solution Inhale 3 mL by mouth every 6 hours 02/15/2024 06/04/2024 thiamine (Vitamin B-1) 100 MG tablet 1 (one) tablet by Enteral Tube route once daily 02/16/2024 08/29/2024 documented as of this encounter Progress Notes * Lyric Pond, [place] - 05/19/2024 10:05 AM CDT Initial Nutrition Assessment Brief Synopsis: Patient at Nutrition Risk and evaluation in progress Weight Change: no wt obtained - scale wt ordered. Nutrition Plan: - alter TF to Glucerna 1.2 @ 75ml/hr, FWF 50ml q6hrs (provides 2160kcals, 108g pro, 1352ml free water + 200ml FWF) Recommendations to Physician: - BG management Discharge Needs: None at this time Patient Summary: Consult received for TF formula and rate per RD and TF protocol. Acute medical issues noted. Pt came in from SNF d/t fall. Remains in the ED now pending placement. Pt is NPO with PEG. TF ordered by ED physician - will alter to better meet pt's needs. Otherwise has been tolerating TF per chart review. No N/V issues noted. No wt obtained -- scale wt ordered. Possible 14.8% wt loss from 01/23 to 03/08. Most recent wt from 04/11 indicates some wt regained. [facility] Nutrition Assessment Weight Weight Method 10/18/2022 9:55 AM 142.883 kg (H) MD Office 05/07/2023 1:07 PM 145.151 kg (H) MD Office 09/17/2023 1:24 PM 148.598 kg (H) MD Office 01/23/2024 10:55 AM 136.079 kg Stated 01/23/2024 5:00 PM 136 kg Bed scale 01/24/2024 4:00 AM 142.5 kg (H) Bed scale 03/07/2024 121.3 kg [facility] 04/11/2024 128.6 kg Pulmonary Rehab Assessment: Med/Surg History and Clinical Diagnoses: Pending placement; PMH of anemia, asthma, T2DM, CAD s/p CABG, HTN, HLD, stroke, s/p PEG Height: 182.9 cm (6' 0.01 ) (obtained from chart) BMI: Body mass index is 29.83 kg/m??. Diet order accuracy Current diet order: (none) Current tube feeding order: Vital 1.2 @ 60ml/hr + 1 protein additive, FWF 50ml q6hrs (provides 1728kcals, 108g pro, 1167ml free water + additional 180kcals, 15g pro from additive w/ 200ml FWF) Nutrition recommendation: alter/change nutrition order Food Allergies: No known food allergies P.O.Intake for the past 48 hrs: No data recorded GI Concerns: Other (Comment) (PEG) Chewing/Swallowing: Dysphagia Pain affecting intake: No Estimated Needs: KCAL: (25-30kcal/kg IBW) Protein (g): 97 (1.2g/kg IBW) Fluid (ml): 1 ml/kcal Needs based on: Kcal/kg- (Comment) (IBW 80.9kg) Recommended Access Route: TF Pertinent Nutrition Labs: Recent Labs Component Name 05/17/24 1024 SODIUM 141 NA - POTASSIUM 4.8 CHLORIDE 106 CO2 26 BUN 18 CREATININE 0.88 GLUCOSE 127* CALCIUM 9.7 ALT 22 ALKPHOS 59 AST 15 TBIL 0.3 TPROT 8.0 EGFR >90 EGFRAFR - ALBUMIN 3.1* - = values in this interval not displayed. Pertinent Nutrition Medications: MEDICATIONS FOR CURRENT ENCOUNTER: SCHEDULED MEDICATIONS: lidocaine (Lidoderm) 5 % patch 2 patch, Transdermal, q24h CONTINUOUS MEDICATIONS: PRN MEDICATIONS: Skin/Wound: no concerns noted per chart review Education needed: None Nutrition Care Process (1) Nutrition Diagnostic Statement: Swallowing difficulty related to:: neurological or muscular disorders as evidenced by:: --- (PEG) Nutrition Intervention: Enteral nutrition: Monitoring: TF, weight, labs, medications, I/Os Evaluation: Diagnostic Statement #1 Goals: Nutrition Goal: Enteral/Parenteral Nutrition prescription will be consistent with estimated nutrient needs Nutrition Goal Timeframe: Throughout stay Nutrition Goal Progress: New goal established * Evelyn Gunter RN - 05/19/2024 8:36 AM CDT Home health care referral received. [facility] is not able to complete the referral due to patient living outside of the service area. Message sent to social and human services assistant and bottle caser. Thank you for the referral. Nancy Gunter, MSN, RN building certifier- [facility] [phone]- office [phone] * Bean Dominguez MSW - 05/19/2024 8:36 AM CDT Images from the original note were not included. New Facility Referral Follow-up Level of Care (SNF/Medicaid NH/Rehab/Burlap Worker Care/LTACH): HOME w [facility] Referrals initiated: Continued Care and Services - Admitted Since 05/17/2024 Durable Medical Equipment Service Provider Request Status Selected Services Address Phone Fax Patient Preferred [facility] Selected Durable Medical Equipment [address] [address] [phone] -- [facility] Pending - Request Sent N/A [address] [facility] [address] [phone] -- Home Medical Care Service Provider Request Status Selected Services Address Phone Fax Patient Preferred [facility] Selected Home Health Services [address], [place] [address] [phone] -- [facility] Accepted N/A [address] [facility] [address] [facility] [phone] -- [facility] Pending - Request Sent N/A [address] [facility] [phone] -- [facility] Declined Out of service area N/A [address] [facility] [address] [place], [facility] [address] -- Payer/Plan Subscriber Name Rel Member # Group # MEDICARE - MEDICARE P* BITA SOLORIO* Self [id number] [address] Extended Emergency Contact Information Primary Emergency Contact: Jenn Mckee [facility] Mobile Relation: Sister Secondary Emergency Contact: Christi Solorio Mobile Relation: Daughter If Medicare-3 day qualifying stay verified: No monitoring facility responses Comments/changes: GRABIEL spoke with POA sister Jenn @[phone] who informed GRABIEL that family would like patient to use [facility] . GRABIEL confirmed with ZACHARY Wright @[phone] from [facility] that patient is accepted for [facility]. Per ZACHARY Wright @[phone] they can start the services within 24-48H once patient is discharged from ER. GRABIEL spoke with Lori @[phone] from [facility] regarding DME being delivered today. Lori @[phone] states she will check with her team and will let GRABIEL know if it will happen today. POA sister Jenn @[phone] also asked about private pay rate for SNF rehab. GRABIEL called [facility] ([phone]/ admissions [phone]) to inquire about the private payrate. Unable to reach, left VM asking for call back. GRABIEL called [facility] ([facility] [address] [place] [address], to inquire about the private pay rate. Per admission, $285 for a semi private bed, $50~ $55 for 15 mins. Currently no private pay bed. GRABIEL called [facility], [address] [place] [address], , to inquire about the private pay rate, unable to reach, left VM to admission Qing asking for call back. 12:05 PM GRABIEL spoke with Lori @[phone] from [facility] regarding DME being delivered today. Lori @[phone] is working to coordinate delivery for today. [facility] will start the [facility] services once patient is discharge from ER. 1:06 PM Lori @[phone] from [facility] called to inform SW that all DME will be delivered to patient's home around 1500 today. 4:29 PM ZACHARY Wright @[phone] from [facility] called to inform SW that they need PCP face to face note, and PCP needs to sign off the [facility] order in order for them to start. GRABIEL spoke with ZACHARY Avalos from PCP Sylvain Daniels MD office @[phone] regarding the Face to Face note. Per ZACHARY Avalos, they can do a video visit with the patient and ANAYELIKirill sister Jenn @[phone] on 05/20/24 at 1540. GRABIEL provided [facility], , , and point of contact (ZACHARY Wright @[phone], ZACHARY Bruno @[phone], ZACHARY Romero @[phone]) to ZACHARY Avalos for them to fax all required documents. GRABIEL spoke with JUDY valle Jenn @[phone] who is agreeable to do the video visit with Sylvain Daniels MD office on 05/20/24 at 1540. JUDY Barajas @[phone] states she does not have access to patient's Mychart. GRABIEL provided [facility] Mychart IT support @ , ED [employer] Bean Fitzpatrick [employer] [phone] documented in this encounter Consult Notes * Bean Dominguez MSW - 05/18/2024 9:11 AM CDTAssociated Order(s): IP CONSULT TO CARD TABLE ATTENDANT Images from the original note were not included. New Facility Referrals Date of referral:05/18/24 Admitted from: [facility] Special Needs: Tube feed Patient Goal (short term and care home): increase mobility Level of Care (SNF/Medicaid NH/Rehab/Burlap Worker Care/LTACH): [facility] Spoke with (Phone number, if not patient. Family participation encouraged): JUDY Barajas @[phone] List of facilities provided (patient preference and geographic preference): Yes Referrals initiated: Continued Care and Services - Admitted Since 05/17/2024 Durable Medical Equipment Service Provider Request Status Selected Services Address Phone Fax Patient Preferred [facility] Pending - Request Sent N/A [address] [facility] [address] [phone] -- [facility] Pending - Request Sent N/A [address] [address] [phone] -- Home Medical Care Service Provider Request Status Selected Services Address Phone Fax Patient Preferred [facility] Selected Home Health Services [facility], [facility] [address] -- [facility] Pending - Request Sent N/A [id number] [address] [facility] [address] -- [facility] Pending - Request Sent N/A [address] [facility] [phone] -- [facility] Pending - Request Sent N/A [address] [facility] [address] -- Prior Auth required? Yes/no: no monitoring facility responses Discharge Plan Disposition: Home w [facility] Transportation: Transportation plan will be determined at time of discharge based on needs of the patient ie: mental status, mobility, oxygen needs. Anticipated Discharge Date: 06/07/24 Contacts: Extended Emergency Contact Information Primary Emergency Contact: RafiJenn [facility] Mobile Relation: Sister Secondary Emergency Contact: Christi Solorio Mobile Relation: Daughter Payer/Plan Subscriber Name Rel Member # Group # MEDICARE - MEDICARE P* BITA SOLORIO* Self [id number] [address] Comments: medical staff services coordinator consult received and acknowledged from Dr. Pineda for [facility]. HHC referralssent to requested facilities. DME referrals sent to [facility] and [facility]. 10:28 AM GRABIEL spoke with [facility] @[phone] regarding the C referral. Per the switchboard receptionist Taylor, no one is working admission/referral today. Taylor states the staff will be back on Sunday at 8 AM. GRABIEL called [facility] @[phone], unable to speak to a human, left VM asking for call back. GRABIEL called [facility] @[phone], spoke with switchboard receptionist Sharon, no admission working today, left number for call back. GRABIEL called [facility] @[phone], spoke with switchboard receptionist Madelaine who stated that an intake nurse will call SW back. GRABIEL called [facility] Leonardo@[phone], unable to reach, left VM asking for call back. GRABIEL called [facility]#[phone], unable to reach, left VM asking for call back. 11:43 AM RN Adriana @[phone] from [facility] called to inform GRABIEL that they have accepted this patient for C. They can start the services once DME is delivered. 1:28 PM GRABIEL spoke with JUDY Barajas@[phone] regarding dc plan. JUDY Barajas is aware DME is currentlypending, and patient is accepted to [facility] for HHC. JUDY Barajas wanted to know the private pay for patient to get additional rehab in a SNF. GRABIEL called [facility] ([phone]/ admissions [phone]) to inquire about the private payrate, Admission Kishor is not in office today, left VM asking for call back. GRABIEL called [facility] ([facility] [address] [place] [address], to inquire about the private pay rate, unable to reach, no one is answering phone calls SW called [facility], [address] [place] [address], , to inquire about the private pay rate, unable to reach, left VM to admission Qing asking for call back. GRABIEL called [facility], ex [phone], , Admission Ophelia@[phone] to inquire about the private pay rate. Per Admission Ophelia@[phone], private pay at [facility] is$335 for room &board (Semi private room ), $2/minute for PT/OT SW called [facility], phone# [phone], fax#[phone]. Admission phone [phone] to inquire about the private pay rate, unable to reach, left VM asking for call back. $255 semi, private $355, there will be a co pay, at least week. GRABIEL called [facility], phone [phone], fax:[phone]. Admission [facility] [phone] to inquire about the private pay rate, unable to reach, left VM asking for call back. ED [employer] Bean ZAMORA [phone] * Bean Dominguez MSW - 05/17/2024 3:43 PM CDTAssociated Order(s): IP CONSULT TO CARD TABLE ATTENDANT Social Work Progress Note medical staff services coordinator consult received and acknowledged from Dr. Betancur for discharge needs. Chart reviewed, Patient came from [facility] ([phone]/[id number]) Admission Catrachita @[phone] after a Fall at the [place]. Per chart review, patient was admitted to [facility] from 01/23/2024 - 02/15/2024 (23 days) due to stroke. Patient went to LTAC at [facility] from 02/14 ~03/12. Patient then went to [facility] for AR from 03/12 ~04/11. Per JUDY Barajas @[phone], patient was discharged to [facility] ([phone])Admission Catrachita @[phone] from [facility] as a SNF patient. Per record, GRABIEL [place] at [facility] ED indicated that patient is a LTC resident at the facility. SW called the [place] 3+ times today to verify if patient is a rehab or LTC patient. Unable to get a hold of anyone at the facility other than the switchboard receptionist. JUDY Barajas @[phone] informed SW that family does NOT want patient to return due to poor care at the facility and requested a new SNF. GRABIEL had a lengthy discussion with JUDY Barajas @[phone] regarding the request. GRABIEL informed JUDY Barajas that he will need to determine if patient is a rehab or LTC first. If patientis a SNF rehab, he will need 3 IP stay in order for Medicare to cover the rehab cost. If patient reed LTC, family will need to work with the [place] to find a new facility, and SW can assist sending referrals. JUDY Barajas @[phone] states patient is absolutely NOT going back to the [place]. JUDY Barajas @[phone] is agreeable for SW to send SNF referrals to see if any other facility can accept,if no accepting facilities family is agreeable to take patient home with [facility]. 7:37 PM GRABIEL confirmed with ANAYELIKirill sister Jenn @[phone] that family is agree able for patient to go home with [facility] at [address], [place] [address] Family is open to HHC options. SW to send referrals to [facility] once order is in. [employer] Bean Fitzpatrick [employer] [phone] documented in this encounter ED Notes * Andreia Cook RN - 05/19/2024 8:47 PM CDT Education provided to family on tube feeding and PEG tube. DC paperwork given. [facility] contacted for transportation to home. * Triny Gallagher RN - 05/19/2024 2:51 PM CDT Received call from [facility] states he would require a barium swallow eval which they cannot do today and only maybe tomorrow if he were still here. They recommend outpatient barium swallow eval. Attending notified. * Cony Petit MD - 05/19/2024 2:26 PM CDT Emergency Department Assumed Care Note Patient signed out to me by Dr Bray. Please see their note for details. Briefly, Yaya Solorio Jr. is a 63 year old male is being evaluated for fall, social work concerns. At the time of sign-out, patient has been medically cleared for discharge home with home health. Social work has been working on getting the patient equipment at his home so his family can care for him at home. Equipment should be delivered today and patient should be able to be discharged home today. Patient discharged home in stable condition. ED Course as of 05/19/24 1426 Sat May 17, 2024 1117 CK: 125 [ML] 1117 Glucose(!): 127 [ML] 1117 Sodium: 141 [ML] 1117 Potassium: 4.8 [ML] 1117 Chloride: 106 [ML] 1117 CO2: 26 [ML] 1117 Anion Gap: 9 [ML] 1117 BUN: 18 [ML] 1117 Creatinine: 0.88 [ML] 1117 Alkaline Phosphatase: 59 [ML] 1117 ALT: 22 [ML] 1117 AST: 15 [ML] 1117 XR CHEST 1VW PORTABLE IMPRESSION: There is no acute-appearing cardiac or pulmonary abnormality [ML] 1117 XR Pelvis 1 or 2Vw Findings: There is no displaced fracture or dislocation. There is no osseous destruction. There is joint space narrowing and acetabular subchondral sclerosis at bilateral hips. [ML] 1117 XR Shoulder Right 2Vw or More IMPRESSION: No acute bony abnormality seen involving the right shoulder [ML] 1321 CT HEAD WO CONTRAST IMPRESSION: No acute intracranial abnormalities Chronic periventricular white matter microvascular ischemic change [ML] 1321 CT CERVICAL SPINE WO CONTRAST IMPRESSION: No fracture, subluxation or osseous destruction in the cervical spine [ML] 1326 CT LUMBAR SPINE NON CONTRAST IMPRESSION: No evidence for lumbar spine fracture. Degenerative changes as above [ML] 1327 CT THORACIC SPINE WO CONTRAST IMPRESSION: No fracture, subluxation or osseous destruction [ML] 1553 Patient reassessed and family is at bedside. I reviewed reassuring workup and plan for discharge. They stated that the patient cannot be discharged back to his facility as they fear for his safety there. They state he has not been getting the therapies they were told he would receive. Social work spoke with them and is going to speak with them again about options. I explained to the family that we cannot admit for placement alone and I do not have a medical reason for admission at this time. [ML] 1612 I spoke again with family regarding my inability to medically admit and explained I completelyunderstand their concerns. Social work is working with them at this time. [ML] 1627 Social work remains at bedside speaking with family [ML] 1655 I spoke with social work (Paul) and patient's family will not consent for him to go back to facility. Patient to remain in ED while social work tries to arrange for placement or home health. [ML] 1711 clock maker ordered tube feeds as patient will be boarding in ED through the weekend. [ML] 1911 Patient again reassessed at family's request. He has numerous family members at bedside. They are upset that he cannot be admitted and concerned they will have to pay out of pocket. I explained that I cannot admit for social reasons and that the patient is at his baseline so there is no medical reason to admit him. They asked me about my concern I had mentioned for aspiration. I do think thepatient aspirates, but he has no PNA on CXR and no O2 requirement. I do not feel an admission wouldbenefit him from that standpoint as he had extensive stroke workup and this is likely residual fromhis stroke. [ML] [address] Baugh and confirmed with him that patient cannot be admitted for placement given he has a bed at the facility. [ML] 1934 I spoke with Paul and patient to likely go home tomorrow. He will walk me through orders neededto get home health stuff set up for patient. [ML] 1942 Care transitioned at 2000 to oncoming physician. [ML] ED Course User Index [ML] Sarah Betancur MD Clinical Impressions as of 05/19/24 1426 Fall, initial encounter Cerebrovascular accident (CVA), unspecified mechanism (HCC) Impaired ambulation Patient Vitals for the past 6 hrs: Pulse Resp BP 05/19/24 1402 -- -- 128/75 05/19/24 1301 70 21 122/74 05/19/24 1201 105 20 121/77 05/19/24 1128 82 -- -- 05/19/24 1126 77 23 121/81 05/19/24 1038 82 18 115/79 Labs Reviewed CBC W AUTO DIFFERENTIAL - Abnormal; Notable for the following components: Result Value RBC Count 3.87 (*) Hemoglobin 10.3 (*) Hematocrit 33.3 (*) MCH 26.6 (*) MCHC 30.9 (*) All other components within normal limits COMPREHENSIVE METABOLIC PANEL - Abnormal; Notable for the following components: Glucose 127 (*) Albumin 3.1 (*) All other components within normal limits GLUCOSE - POINT OF CARE - Abnormal; Notable for the following components: Glucose WB/POC 177 (*) All other components within normal limits CK BLOOD - Normal CT LUMBAR SPINE NON CONTRAST Final Result PROCEDURE: CT LUMBAR SPINE WO CONTRAST DATE/TIME OF EXAM: 05/17/2024 12:57 PM CLINICAL INFORMATION: Back pain Indication: W19.XXXA: Unspecified fall, initial encounter COMPARISON: None. TECHNIQUE: CT of the lumbar spine was preformed utilizing standard protocol. Sagittal and coronal reformatted images were rendered. CT [...] Soliman JR, MD on 05/17/2024 1:[address] THORACIC SPINE WO CONTRAST Final Result EXAM: CT THORACIC SPINE WO CONTRAST INDICATION: [...] is noted throughout the lower thoracic region. IMPRESSION: No fracture, subluxation or osseous destruction > Interpreting Provider: Rony Soliman JR, MD on 05/17/2024 1:[address] CERVICAL SPINE WO CONTRAST Final Result EXAM: CT Cervical Spine Without Contrast INDICATION: [...] facet arthropathy present throughout the cervical region. IMPRESSION: No fracture, subluxation or osseous destruction in the cervical spine > Interpreting Provider: Rony Soliman JR, MD on 05/17/2024 1:[address] HEAD WO CONTRAST Final Result EXAM: CT scan of the brain without contrast TECHNIQUE: Axial images through the brain without contrast. Bancha software was utilized to analyze for intracranial [...] intact. The paranasal sinuses are well aerated. IMPRESSION: No acute intracranial abnormalities Chronic periventricular white matter microvascular ischemic change > Interpreting Provider: Rony Soliman JR, MD on 05/17/2024 1:14 PM XR Shoulder Right 2Vw or More Final Result PROCEDURE: XR SHOULDER RIGHT 2VW OR MORE [...] Antonella Avila MD on 05/17/2024 10:51 AM XR Pelvis 1 or 2Vw Final Result AP pelvis Indication: Pelvic pain Findings: There is no displaced fracture or dislocation. There is no osseous destruction. There is joint space narrowing and acetabular subchondral sclerosis at bilateral hips. > Interpreting Provider: Rony Soliman JR, MD on 05/17/2024 10:51 AM XR CHEST 1VW PORTABLE Final Result PROCEDURE: XR CHEST 1VW PORTABLE, DATE/TIME OF EXAM: 05/17/2024 10:47 AM, LOCATION [facility] INDICATION: W19.XXXA: Unspecified fall, initial encounter ADDITIONAL [...] Antonella Avila MD on 05/17/2024 10:50 AM Medications lidocaine (Lidoderm) 5 % patch 2 patch (2 patches Transdermal $ Applied 05/19/24 7881) ketorolac (Toradol) injection 15 mg (15 mg Intravenous $ Given 05/17/24 0948) ICD-10-CM 1. Fall, initial encounter W19.XXXA XR CHEST 1VW PORTABLE XR Pelvis [address] HEAD WO CONTRAST CT CERVICAL SPINE WO CONTRAST CT THORACIC SPINE WO CONTRAST CT LUMBAR SPINE NON CONTRAST XR Shoulder Right 2Vw or More Referral to Home Health Care 2. Cerebrovascular accident (CVA), unspecified mechanism (HCC) I63.9 Referral for Durable Medical Equipment (DME) Referral to Home Health Care 3. Impaired ambulation R26.2 Disposition: ED Disposition ED Disposition Discharge Comment -- Cony Petit MD 05/19/2024 2:26 PM * Triny Gallagher RN - 05/19/2024 2:19 PM CDT Update received from psychosocial rehabilitation counselor. Pt equipment expected to be delivered to home at 1500. Pt family member will be coming in to get education/instruction on tube feeding. Family had also asked about pureed diet, informed them that doctor would need to put in a consult to Speech therapy to have aswallow evaluation performed. * Chanell Bray MD - 05/19/2024 9:03 AM CDT 6:00 a.m. Patient signed out to me by Dr. Mejia pending social work evaluation and disposition. Patient has been waiting for home health set up at home. 11:15 a.m. Patient requires a semi electric hospital bed. The patient has a medical condition which requires frequent changes in body position not feasible with an ordinary bed and/or requires positioning of the body in ways not feasible with an ordinary bed due to decreased mobility, decreased transfers, LE and UE strength. Pillows and wedges have been considered and ruled out. Michelle lift Patient requires Michelle lift for transfers from wheelchair to bed and / or bed to wheelchair and without it the patient would be confined to the bed / wheelchair. Standard Manual Wheelchairs The patient's mobility is limited to unsteady gait. The patient cannot use a cane or walker due to physical deconditioning, frequent falls. The patient requires a manual wheelchair to complete their home activities of daily living including feeding, bathing, dressing and moving from room to room inthe home. Patient also has sufficient upper body strength to self-propel and or has a caregiver to assist. Transport Wheelchairs The patient's mobility is limited to unsteady gait. The patient cannot use a cane or walker due to physical deconditioning, frequent falls. The patient requires a transport wheelchair to complete their home activities of daily living including feeding, bathing, dressing and moving from room to roomin the home. Patient has a caregiver that is available and willing to push them in the wheelchair. 2:00 p.m. Patient is still being evaluated by bottle caser to get all the equipment he needs at home. Sign out to Dr. Marsh. ICD-10-CM 1. Fall, initial encounter W19.XXXA XR CHEST 1VW PORTABLE XR Pelvis [address] HEAD WO CONTRAST CT CERVICAL SPINE WO CONTRAST CT THORACIC SPINE WO CONTRAST CT LUMBAR SPINE NON CONTRAST XR Shoulder Right 2Vw or More Referral to Home Health Care 2. Cerebrovascular accident (CVA), unspecified mechanism (HCC) I63.9 Referral for Durable Medical Equipment (DME) Referral to Home Health Care 3. Impaired ambulation R26.2 * Jean-Claude Reynaga RN - 05/19/2024 7:23 AM CDT Introductions made. Pt resting comfortably on stretcher. No s/s of pain or distress noted. Respirations even and unlabored, chest rise and fall observed. Pt denies all complaints at this time. TF at 60ml. Will continue to monitor. * Andreia Cook RN - 05/19/2024 4:39 AM CDT Pt with incontinent episode, pt had pulled condom catheter off. Skin cleansed, pad changed, new condom catheter applied. Pt resting in bed. * Tarah Mejia MD - 05/19/2024 1:15 AM CDT Care assumed from Dr. David and case discussed. Chart, pertinent results, and recent vitals reviewed. Pending discharge later today when home health set up is complete. 6:00 AM Care endorsed to the oncoming physician. Encounter Diagnoses Name Primary? Fall, initial encounter Cerebrovascular accident (CVA), unspecified mechanism (HCC) ED Disposition ED Disposition Discharge Comment -- * Ashley Langley RN - 05/18/2024 3:55 PM CDT Pt resting queitly in bed..nil complains at this time * Aiyana David MD - 05/18/2024 3:04 PM CDT ASSUMED CARE NOTE: Assumed care of patient. Received sign out from Dr Hernandez. Please see their note for more details. Briefly, Pt here for Fall Pt awaiting bed placement. Plan for dc to new facility 05/19 AM ED Course as of 05/18/24 1504 Sat May 17, 2024 1117 CK: 125 [ML] 1117 Glucose(!): 127 [ML] 1117 Sodium: 141 [ML] 1117 Potassium: 4.8 [ML] 1117 Chloride: 106 [ML] 1117 CO2: 26 [ML] 1117 Anion Gap: 9 [ML] 1117 BUN: 18 [ML] 1117 Creatinine: 0.88 [ML] 1117 Alkaline Phosphatase: 59 [ML] 1117 ALT: 22 [ML] 1117 AST: 15 [ML] 1117 XR CHEST 1VW PORTABLE IMPRESSION: There is no acute-appearing cardiac or pulmonary abnormality [ML] 1117 XR Pelvis 1 or 2Vw Findings: There is no displaced fracture or dislocation. There is no osseous destruction. There is joint space narrowing and acetabular subchondral sclerosis at bilateral hips. [ML] 1117 XR Shoulder Right 2Vw or More IMPRESSION: No acute bony abnormality seen involving the right shoulder [ML] 1321 CT HEAD WO CONTRAST IMPRESSION: No acute intracranial abnormalities Chronic periventricular white matter microvascular ischemic change [ML] 1321 CT CERVICAL SPINE WO CONTRAST IMPRESSION: No fracture, subluxation or osseous destruction in the cervical spine [ML] 1326 CT LUMBAR SPINE NON CONTRAST IMPRESSION: No evidence for lumbar spine fracture. Degenerative changes as above [ML] 1327 CT THORACIC SPINE WO CONTRAST IMPRESSION: No fracture, subluxation or osseous destruction [ML] 1553 Patient reassessed and family is at bedside. I reviewed reassuring workup and plan for discharge. They stated that the patient cannot be discharged back to his facility as they fear for his safety there. They state he has not been getting the therapies they were told he would receive. Social work spoke with them and is going to speak with them again about options. I explained to the family that we cannot admit for placement alone and I do not have a medical reason for admission at this time. [ML] 1612 I spoke again with family regarding my inability to medically admit and explained I completelyunderstand their concerns. Social work is working with them at this time. [ML] 1627 Social work remains at bedside speaking with family [ML] 1655 I spoke with social work (Paul) and patient's family will not consent for him to go back to facility. Patient to remain in ED while social work tries to arrange for placement or home health. [ML] 1711 clock maker ordered tube feeds as patient will be boarding in ED through the weekend. [ML] 1911 Patient again reassessed at family's request. He has numerous family members at bedside. They are upset that he cannot be admitted and concerned they will have to pay out of pocket. I explained that I cannot admit for social reasons and that the patient is at his baseline so there is no medical reason to admit him. They asked me about my concern I had mentioned for aspiration. I do think thepatient aspirates, but he has no PNA on CXR and no O2 requirement. I do not feel an admission wouldbenefit him from that standpoint as he had extensive stroke workup and this is likely residual fromhis stroke. [ML] [address] Baugh and confirmed with him that patient cannot be admitted for placement given he has a bed at the facility. [ML] 1934 I spoke with Paul and patient to likely go home tomorrow. He will walk me through orders neededto get home health stuff set up for patient. [ML] 1942 Care transitioned at 2000 to oncoming physician. [ML] ED Course User Index [ML] Sarah Betancur MD Clinical Impressions as of 05/18/24 1504 Fall, initial encounter Cerebrovascular accident (CVA), unspecified mechanism (HCC) Signout given to Dr Mejia pending placement * Ashley Langley RN - 05/18/2024 7:20 AM CDT Received pt from night rn calm in bed,pt on tube feeding,pt alert and oriented to place and person..nil complains at this time. * Jean Carlos Pineda MD - 05/17/2024 8:02 PM CDT Emergency Department Assumed Care Note Patient signed out to me by Dr Betacnur. Please see their note for details. Briefly, Yaya Solorio Jr. is a 63 year old male is being evaluated for placement - awaiting social work to arrange home health in the morning. I am told this will occur on SundayMay 18. No major events. Patient care signed out to morning physician. Patient Vitals for the past 6 hrs: Pulse Resp BP 05/17/24 1832 -- -- 152/85 05/17/24 1801 76 18 132/90 Labs Reviewed CBC W AUTO DIFFERENTIAL - Abnormal; Notable for the following components: Result Value RBC Count 3.87 (*) Hemoglobin 10.3 (*) Hematocrit 33.3 (*) MCH 26.6 (*) MCHC 30.9 (*) All other components within normal limits COMPREHENSIVE METABOLIC PANEL - Abnormal; Notable for the following components: Glucose 127 (*) Albumin 3.1 (*) All other components within normal limits CK BLOOD - Normal CT LUMBAR SPINE NON CONTRAST Final Result PROCEDURE: CT LUMBAR SPINE WO CONTRAST DATE/TIME OF EXAM: 05/17/2024 12:57 PM CLINICAL INFORMATION: Back pain Indication: W19.XXXA: Unspecified fall, initial encounter COMPARISON: None. TECHNIQUE: CT of the lumbar spine was preformed utilizing standard protocol. Sagittal and coronal reformatted images were rendered. CT [...] Soliman JR, MD on 05/17/2024 1:[address] THORACIC SPINE WO CONTRAST Final Result EXAM: CT THORACIC SPINE WO CONTRAST INDICATION: [...] is noted throughout the lower thoracic region. IMPRESSION: No fracture, subluxation or osseous destruction > Interpreting Provider: Rony Soliman JR, MD on 05/17/2024 1:[address] CERVICAL SPINE WO CONTRAST Final Result EXAM: CT Cervical Spine Without Contrast INDICATION: [...] facet arthropathy present throughout the cervical region. IMPRESSION: No fracture, subluxation or osseous destruction in the cervical spine > Interpreting Provider: Rony Soliman JR, MD on 05/17/2024 1:[address] HEAD WO CONTRAST Final Result EXAM: CT scan of the brain without contrast TECHNIQUE: Axial images through the brain without contrast. Bancha software was utilized to analyze for intracranial [...] intact. The paranasal sinuses are well aerated. IMPRESSION: No acute intracranial abnormalities Chronic periventricular white matter microvascular ischemic change > Interpreting Provider: Rony Soliman JR, MD on 05/17/2024 1:14 PM XR Shoulder Right 2Vw or More Final Result PROCEDURE: XR SHOULDER RIGHT 2VW OR MORE [...] Antonella Avila MD on 05/17/2024 10:51 AM XR Pelvis 1 or 2Vw Final Result AP pelvis Indication: Pelvic pain Findings: There is no displaced fracture or dislocation. There is no osseous destruction. There is joint space narrowing and acetabular subchondral sclerosis at bilateral hips. > Interpreting Provider: Rony Soliman JR, MD on 05/17/2024 10:51 AM XR CHEST 1VW PORTABLE Final Result PROCEDURE: XR CHEST 1VW PORTABLE, DATE/TIME OF EXAM: 05/17/2024 10:47 AM, LOCATION [facility] INDICATION: W19.XXXA: Unspecified fall, initial encounter ADDITIONAL [...] Antonella Avila MD on 05/17/2024 10:50 AM Medications lidocaine (Lidoderm) 5 % patch 2 patch (2 patches Transdermal $ Applied 05/17/24 1456) ketorolac (Toradol) injection 15 mg (15 mg Intravenous $ Given 05/17/24 1441) ICD-10-CM 1. Fall, initial encounter W19.XXXA XR CHEST 1VW PORTABLE XR Pelvis [address] HEAD WO CONTRAST CT CERVICAL SPINE WO CONTRAST CT THORACIC SPINE WO CONTRAST CT LUMBAR SPINE NON CONTRAST XR Shoulder Right 2Vw or More 2. Cerebrovascular accident (CVA), unspecified mechanism (HCC) I63.9 Referral to Home Health Care Referral for Durable Medical Equipment (DME) Disposition: ED Disposition ED Disposition Discharge Comment -- Jean Carlos Pineda MD 05/17/2024 8:05 PM * Domonique Edmonds Graduate Nurse - 05/17/2024 7:40 PM CDT Report received from Rafy SHARMA. All questions answered and care taken over at this time. Family atbedside. Patient resting in bed with even and unlabored respirations. No distress noted on exam. Patient updated on care and express no concerns at this time. Call light is within reach. Plan of careis ongoing. Patient does have a lingering cough, baseline from day shift * Sarah Betancur MD - 05/17/2024 10:22 AM CDT Yaya Solorio . [id number] ER AT [facility] History Chief Complaint Patient presents with Fall Pt bibems c/o snf with unwitnessed fall yesterday,when he ws trying to gett something,has back pain.now.A&O x 3-4.The patient has a history of of stroke,(+) thinners 63 y/o M w asthma, anemia, T2DM, HTN, HLD, CAD s/p 3v CABG, CVA p/w fall from bed while reaching for something yesterday. +Head trauma. No LOC. On plavix. Patient denies neck pain. Reports back pain.Denies new weakness, numbness, or tingling. Denies any NVV, diarrhea. Patient BIBEMS and has had cough since January. He denies any changes. Denies fevers, CP, SOB, edema.Per EMS, patient also mentioned R shoulder pain. Per chart review, 01/23/24-02/15/24 patient was admitted for brainstem strokes. Patient required intubation and ICU admission initially. Patient had multiple brainstem infarcts. He was taken to IVR and found to have basilar artery stenosis and stenting attempted but complicated by dissection of R distal vertebral artery. Past Medical History: Diagnosis Date Anemia 01/2018 Asthma (HCC) Chest congestion 08/05/2020 Confusional arousals 08/05/2020 Controlled type 2 diabetes mellitus without complication, without long-term current use of insulin ([facility]) 09/28/2011 Coronary artery disease involving [place] heart with angina pectoris ([facility]) 09/04/2018 Cough syncope 2018 Daytime sleepiness 08/05/2020 Essential hypertension 01/23/2018 HTN (hypertension) Hyperlipidemia 08/05/2020 Inadequate sleep hygiene 08/05/2020 Morbid obesity with BMI of 40.0-44.9, adult (HCC) 08/05/2020 Nocturia 08/05/2020 Obesity (BMI 30-39.9) 04/24/2012 Other chest pain 09/04/2018 S/P CABG x 3 01/24/2018 Snoring 08/05/2020 Stroke (HCC) Superficial postoperative wound infection 02/23/2018 sternum Type 2 diabetes mellitus with retinopathy without macular edema ([facility]) Wears glasses 08/05/2020 Weight gain 08/05/2020 40# past 6-8 months-covid Wound of sternal region 02/23/2018 Past Surgical History: Procedure Laterality Date ANGIOPLASTY COLONOSCOPY N/A 11/12/2020 N/A; COLONOSCOPY SCREEN Coronary Artery Bypass Graft N/A 01/24/2018 N/A; Coronary artery bypass graft x 3 ENDOSCOPY, UPPER N/A 01/30/2024 N/A; ESOPHAGOGASTRODUODENOSCOPY (EGD) WITH PEG PLACEMENT ENDOSCOPY, UPPER N/A 03/17/2024 N/A; ESOPHAGOGASTRODUODENOSCOPY (EGD) WITH PEG PLACEMENT Tonsillectomy Family History Problem Relation Name Age of Onset Hypertension Father <65 CAD (Coronary Artery Disease) Father <65 Cancer - Ovarian Mother 60s None Known Sister Diabetes - Type 2 Sister Social History Socioeconomic History Marital status: Legally Spouse name: Not on file Number of children: 1 Years of education: 16 Highest education level: Bachelor's degree (e.g., BA, AB, BS) Occupational History 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 HENT: Head: Normocephalic and atraumatic. Right Ear: External ear normal. Left Ear: External ear normal. Nose: Nose normal. Mouth/Throat: Mouth: Mucous membranes are moist. Pharynx: Oropharynx is clear. Eyes: Conjunctiva/sclera: Conjunctivae normal. Cardiovascular: Rate and Rhythm: Normal rate and regular rhythm. Pulses: Normal pulses. Heart sounds: Normal heart sounds. Pulmonary: Effort: Pulmonary effort is normal. No respiratory distress. Breath sounds: Normal breath sounds. Abdominal: General: There is no distension. Palpations: Abdomen is soft. Tenderness: There is no abdominal tenderness. Comments: G tube noted Musculoskeletal: Cervical back: No tenderness. No muscular tenderness. Comments: Tenderness in T and L spine area Skin: General: Skin is warm and dry. Neurological: Mental Status: He is alert. Mental status is at baseline. Comments: Patient awake, alert, oriented to person and place. Able to move all extremities, but diffusely weak. Psychiatric: Mood and Affect: Mood normal. Behavior: Behavior normal. Medications Current Outpatient Medications Medication Sig Dispense Refill albuterol (Proventil;Ventolin) (2.5 MG/3ML) 0.083% nebulizer solution [...] tablet by Enteral Tube route at bedtime clopidogrel (plaVIX) 75 MG tablet 1 (one) tablet by Enteral Tube route once daily famotidine (Pepcid) 20 MG tablet 1 (one) tablet by Enteral Tube route 2 times daily folic acid (Folvite) 1 MG tablet 1 (one) tablet by Enteral Tube route once daily heparin 5000 UNIT/ML injection Inject 1 mL subcutaneously 2 times daily insulin aspart (NovoLOG) pen Inject 0 (zero) Units to 18 (eighteen) Units subcutaneously every 6 hours insulin NPH pen Inject 15 (fifteen) Units subcutaneously every 12 hours modafinil (Provigil) 200 MG tablet 1 (one) tablet by Enteral Tube route every morning multiple vitamins with minerals tablet 1 (one) tablet by Enteral Tube route once daily senna-docusate (Senokot-S) 8.6-50 MG tablet 2 (two) tablets by Enteral Tube route 2 times daily sodium chloride 3 % nebulizer solution Inhale 3 mL by mouth every 6 hours thiamine (Vitamin B-1) 100 MG tablet 1 (one) tablet by Enteral Tube route once daily Procedures Procedures Lab Interpretation Oxygen Saturation Interpretation Hospital Encounter on 05/17/24 CBC W AUTO DIFFERENTIAL Result Value Ref Range WBC 7.4 4.0 - 10.7 x10E9/L RBC Count 3.87 (L) 4.30 - 5.80 x10E12/L Hemoglobin 10.3 (L) 13.3 - 17.5 g/dL Hematocrit 33.3 (L) 38.7 - 51.1 % MCV 86.0 80.0 - 98.0 fL MCH 26.6 (L) 26.7 - 33.6 pg MCHC 30.9 (L) 31.7 - 36.3 g/dL RDW-CV 14.6 11.3 - 14.8 % Platelet Count 268 150 - 420 x10E9/L MPV 9.1 7.8 - 11.4 fL Neutrophil % 53.0 41.0 - 74.0 % Lymphocyte % 38.6 17.0 - 47.0 % Monocyte % 6.5 3.0 - 11.0 % Eosinophil % 1.5 0.0 - 7.0 % Basophil % 0.3 0.0 - 1.6 % Immature Granulocytes % 0.1 0.0 - 1.0 % Neutrophil Absolute 3.91 1.60 - 7.50 x10E9/L Lymphocyte Absolute 2.85 1.00 - 4.40 x10E9/L Monocyte Absolute 0.48 0.15 - 1.00 x10E9/L Eosinophil Absolute 0.11 0.00 - 0.60 x10E9/L Basophil Absolute 0.02 0.00 - 0.13 x10E9/L COMPREHENSIVE METABOLIC PANEL Result Value Ref Range Glucose 127 (H) 70 - 105 mg/dL Sodium 141 136 - 145 mmol/L Potassium 4.8 3.5 - 5.1 mmol/L Chloride 106 98 - 107 mmol/L CO2 26 22 - 29 mmol/L Calcium 9.7 8.4 - 10.4 mg/dL Anion Gap 9 6 - 16 mmol/L BUN 18 7 - 26 mg/dL Creatinine 0.88 0.72 - 1.25 mg/dL Alkaline Phosphatase 59 40 - 150 U/L ALT 22 0 - 55 U/L AST 15 5 - 34 U/L Protein Total 8.0 6.4 - 8.3 gm/dL Albumin 3.1 (L) 3.4 - 5.0 gm/dL Bilirubin Total 0.3 0.2 - 1.2 mg/dL eGFR by CKD-EPI >90 >=90 mL/min/1.73 m2 CK BLOOD Result Value Ref Range CK 125 30 - 200 U/L CT LUMBAR SPINE NON CONTRAST Final Result PROCEDURE: CT LUMBAR SPINE WO CONTRAST DATE/TIME OF EXAM: 05/17/2024 12:57 PM CLINICAL INFORMATION: Back pain Indication: W19.XXXA: Unspecified fall, initial encounter COMPARISON: None. TECHNIQUE: CT of the lumbar spine was preformed utilizing standard protocol. Sagittal and coronal reformatted images were rendered. CT [...] Soliman JR, MD on 05/17/2024 1:[address] THORACIC SPINE WO CONTRAST Final Result EXAM: CT THORACIC SPINE WO CONTRAST INDICATION: [...] is noted throughout the lower thoracic region. IMPRESSION: No fracture, subluxation or osseous destruction > Interpreting Provider: Rony Soliman JR, MD on 05/17/2024 1:[address] CERVICAL SPINE WO CONTRAST Final Result EXAM: CT Cervical Spine Without Contrast INDICATION: [...] facet arthropathy present throughout the cervical region. IMPRESSION: No fracture, subluxation or osseous destruction in the cervical spine > Interpreting Provider: Rony Soliman JR, MD on 05/17/2024 1:[address] HEAD WO CONTRAST Final Result EXAM: CT scan of the brain without contrast TECHNIQUE: Axial images through the brain without contrast. Bancha software was utilized to analyze for intracranial [...] intact. The paranasal sinuses are well aerated. IMPRESSION: No acute intracranial abnormalities Chronic periventricular white matter microvascular ischemic change > Interpreting Provider: Rony Soliman JR, MD on 05/17/2024 1:14 PM XR Shoulder Right 2Vw or More Final Result PROCEDURE: XR SHOULDER RIGHT 2VW OR MORE [...] Antonella Avila MD on 05/17/2024 10:51 AM XR Pelvis 1 or 2Vw Final Result AP pelvis Indication: Pelvic pain Findings: There is no displaced fracture or dislocation. There is no osseous destruction. There is joint space narrowing and acetabular subchondral sclerosis at bilateral hips. > Interpreting Provider: Rony Soliman JR, MD on 05/17/2024 10:51 AM XR CHEST 1VW PORTABLE Final Result PROCEDURE: XR CHEST 1VW PORTABLE, DATE/TIME OF EXAM: 05/17/2024 10:47 AM, LOCATION [facility] INDICATION: W19.XXXA: Unspecified fall, initial encounter ADDITIONAL [...] Antonella Avila MD on 05/17/2024 10:50 AM Progress Notes ED Course ED Course as of 05/17/24 1943 Sat May 17, 2024 1117 CK: 125 [ML] 1117 Glucose(!): 127 [ML] 1117 Sodium: 141 [ML] 1117 Potassium: 4.8 [ML] 1117 Chloride: 106 [ML] 1117 CO2: 26 [ML] 1117 Anion Gap: 9 [ML] 1117 BUN: 18 [ML] 1117 Creatinine: 0.88 [ML] 1117 Alkaline Phosphatase: 59 [ML] 1117 ALT: 22 [ML] 1117 AST: 15 [ML] 1117 XR CHEST 1VW PORTABLE IMPRESSION: There is no acute-appearing cardiac or pulmonary abnormality [ML] 1117 XR Pelvis 1 or 2Vw Findings: There is no displaced fracture or dislocation. There is no osseous destruction. There is joint space narrowing and acetabular subchondral sclerosis at bilateral hips. [ML] 1117 XR Shoulder Right 2Vw or More IMPRESSION: No acute bony abnormality seen involving the right shoulder [ML] 1321 CT HEAD WO CONTRAST IMPRESSION: No acute intracranial abnormalities Chronic periventricular white matter microvascular ischemic change [ML] 1321 CT CERVICAL SPINE WO CONTRAST IMPRESSION: No fracture, subluxation or osseous destruction in the cervical spine [ML] 1326 CT LUMBAR SPINE NON CONTRAST IMPRESSION: No evidence for lumbar spine fracture. Degenerative changes as above [ML] 1327 CT THORACIC SPINE WO CONTRAST IMPRESSION: No fracture, subluxation or osseous destruction [ML] 1553 Patient reassessed and family is at bedside. I reviewed reassuring workup and plan for discharge. They stated that the patient cannot be discharged back to his facility as they fear for his safety there. They state he has not been getting the therapies they were told he would receive. Social work spoke with them and is going to speak with them again about options. I explained to the family that we cannot admit for placement alone and I do not have a medical reason for admission at this time. [ML] 1612 I spoke again with family regarding my inability to medically admit and explained I completelyunderstand their concerns. Social work is working with them at this time. [ML] 1627 Social work remains at bedside speaking with family [ML] 1655 I spoke with social work (Paul) and patient's family will not consent for him to go back to facility. Patient to remain in ED while social work tries to arrange for placement or home health. [ML] 1711 clock maker ordered tube feeds as patient will be boarding in ED through the weekend. [ML] 1911 Patient again reassessed at family's request. He has numerous family members at bedside. They are upset that he cannot be admitted and concerned they will have to pay out of pocket. I explained that I cannot admit for social reasons and that the patient is at his baseline so there is no medical reason to admit him. They asked me about my concern I had mentioned for aspiration. I do think thepatient aspirates, but he has no PNA on CXR and no O2 requirement. I do not feel an admission wouldbenefit him from that standpoint as he had extensive stroke workup and this is likely residual fromhis stroke. [ML] [address] Baugh and confirmed with him that patient cannot be admitted for placement given he has a bed at the facility. [ML] 1934 I spoke with Paul and patient to likely go home tomorrow. He will walk me through orders neededto get home health stuff set up for patient. [ML] 1942 Care transitioned at 2000 to oncoming physician. [ML] ED Course User Index [ML] Sarah Betancur MD Clinical Impressions as of 05/17/241942 Fall, initial encounter Cerebrovascular accident (CVA), unspecified mechanism (HCC) Medical Decision Making 63 y/o M w asthma, anemia, T2DM, HTN, HLD, CAD s/p 3v CABG, CVA p/w fall from bed while reaching for something yesterday. +Head trauma. No LOC. On plavix. Complaining of T & L spine pain with tenderness on exam. Also told EMS he had R shoulder pain. Differential includes fracture, contusion, muscle strain, less likely head bleed, c-spine injury, no evidence of infectious or metabolic process. Plan: Labs, imaging, reassessment, dispo pending workup. Amount and/or Complexity of Data Reviewed Labs: ordered. Decision-making details documented in ED Course. Radiology: ordered. Decision-making details documented in ED Course. Risk Prescription drug management. Orders Placed This Encounter XR CHEST 1VW PORTABLE XR Pelvis [address] HEAD WO CONTRAST CT CERVICAL SPINE WO CONTRAST CT THORACIC SPINE WO CONTRAST CT LUMBAR SPINE NON CONTRAST XR Shoulder Right 2Vw or More CBC W AUTO DIFFERENTIAL COMPREHENSIVE METABOLIC PANEL CK BLOOD Referral to Home Health Care IP CONSULT TO CARD TABLE ATTENDANT IP CONSULT TO NUTRITIONAL SERV IP CONSULT TO NUTRITIONAL SERV ketorolac (Toradol) injection 15 mg lidocaine (Lidoderm) 5 % patch 2 patch DISCONTD: lactated ringers infusion * Shan Boyer RN - 05/17/2024 10:17 AM CDT Bed: 14 Expected date: Expected time: Means of arrival: Comments: 104 documented in this encounter Plan of Treatment Upcoming Encounters Date Type Department Care Team (Late st Contact Info) Description 10/20/2024 8:00 AM HAND SURGEON Office Visit [facility] - Family Medicine [address], [facility] [address] [place] [phone] Kiana Cole MD [address] [place] [address] 11/28/2024 9:00 AM HAND SURGEON Office Visit [facility] - Neurology [address] [address] [place] [address] Aline Finch MD [address] [facility] [place] [address] 02/10/2025 10:00 AM CDT Office Visit [facility] - Cardiology [address] [facility] [place] [address] Curly Lay MD [address] [place] [address] Scheduled Referrals Name Type Priority Associated Diagnoses Orde r Schedule Referral to Home Health Care Outpatient Referral Routine Fall, initial encounter Cerebrovascular accident (CVA), unspecified mechanism (HCC) Ordered: 05/18/2024 documented as of this encounter Procedures Procedure Name Priority Date/Time Associated Diagnosis Comments GLUCOSE - POINT OF CARE Routine 05/19/2024 8:[address] LUMBAR SPINE WO CONTRAST STAT 05/17/2024 12:57 PM CDT Fall, initial encounter CT THORACIC SPINE WO CONTRAST STAT 05/17/2024 12:54 PM CDT Fall, initial encounter CT CERVICAL SPINE WO CONTRAST STAT 05/17/2024 12:54 PM CDT Fall, initial encounter CT HEAD WO CONTRAST STAT 05/17/2024 1 2:52 PM CDT Fall, initial encounter XR SHOULDER RIGHT 2VW OR MORE STAT 05/17/2024 10:47 AM CDT Fall, initial encounter XR PELVIS 1 OR 2VW STAT 05/17/2024 10 :47 AM CDT Fall, initial encounter XR CHEST 1VW PORTABLE STAT 05/17/2024 10:47 AM CDT Fall, initial encounter CBC W AUTO DIFFERENTIAL STAT 05/17/2024 10:24 AM CDT COMPREHENSIVE METABOLIC PANEL STAT 05/17/2024 10:24 AM CDT CK BLOOD STAT 05/17/2024 10:24 AM CDT documented in this encounter Results * (ABNORMAL) GLUCOSE - POINT OF CARE (05/19/2024 8:42 AM CDT) [facility] Glucose WB/POC 177(H) 70 - 106 mg/dL 05/19/2024 8:42 AM CDT [facility] Specimen Type Cap Fingerstick 2023 8:42 AM CDT [facility] Blood BLOOD SPECIMEN / Unknown 05/19/2024 8:42 AM CDT 05/19/2024 8:42 AM CDT Chanell Bray MD LAB - POINT OF CARE ORDERABLES [facility] [address] [place] [address] * CT LUMBAR SPINE NON CONTRAST (05/17/2024 [...] HEAD WO CONTRAST (05/17/2024 12:52 PM CDT) Anatomical Region Laterality Modality Head Computed Tomogra phy 05/17/2024 1:13 PM CDT Impressions 05/17/2024 1:14 PM CDT IMPRESSION: No acute intracranial abnormalities Chronic periventricular white matter microvascular ischemic change > Interpreting Provider: Rony Soliman JR, MD on 05/17/2024 1:14 PM Narrative 05/17/2024 1:14 PM CDT EXAM: ??CT scan of the brain without contrast TECHNIQUE: Axial images through the brain without contrast. Bancha software was utilized to analyze for intracranial [...] Axial images through the brain without contrast. Viz AIsoftware was utilized to analyze for intracranial [...] 2Vw or More (05/17/2024 10:47 AM CDT) Anatomical Region Laterality Modality Upper Extremity Radiographic [...] CHEST 1VW PORTABLE (05/17/2024 10:47 AM CDT) Anatomical Region Laterality Modality Chest Radiographic Love ging 05/17/2024 10:5 0 AM CDT Impressions 05/17/2024 10:50 AM CDT IMPRESSION: There is no acute-appearing cardiac or pulmonary abnormality > Interpreting Provider: Antonella Avila MD on 05/17/2024 10:50 AM Narrative 05/17/2024 10:50 AM CDT PROCEDURE: ??XR CHEST 1VW PORTABLE, DATE/TIME OF EXAM: ??05/17/2024 10:47 AM, LOCATION ??[facility] INDICATION: W19.XXXA: Unspecified fall, initial encounter ADDITIONAL [...] PORTABLE, DATE/TIME OF EXAM: 05/17/2024 10:47AM, LOCATION [facility] INDICATION: W19.XXXA: Unspecified fall, initial encounter ADDITIONAL [...] Betancur MD DIAGNOSTIC IMAGING O RDERABLES * CK BLOOD (05/17/2024 10:24 AM CDT) CK 125 30 - 200 U/L 05/17/2024 10:53 AM CDT [facility] Blood BLOOD SPECIMEN / Unknown Venipuncture / Unknown 05/17/2024 10:24 AM CDT 05/17/2024 10:28 AM CDT Sarah Betancur MD LAB - CHEMISTRY [facility]RISTIAN RAZO [facility] Organization Address City/State/ZIP Co de Phone Number [facility] [address] [place] [address] * (ABNORMAL) COMPREHENSIVE METABOLIC PANEL (05/17/2024 10:24 AM CDT) Glucose 127(H) 70 - 105 mg/dL 05/17/2024 10:53 AM CDT [facility] Sodium 141 136 - 145 mmol/L 05/17[facility]2024 [facility] Potassium 4.8 3.5 - 5.1 mmol/L 05/17/2024 10:53 AM CDT [facility] Chloride 106 98 - 107 mmol/L 05/17/2024 10:53 AM CDT [facility] CO2 26 22 - 29 mmol/L 05/17/2024 10:53 AM CDT [facility] Calcium 9.7 8.4 - 10.4 mg/dL 05/17/2024 10:53 [facility] Anion Gap 9 6 - 16 mmol/L 05/17/2024 10:53 AM CDT [facility] BUN 18 7 - 26 mg/dL 05/17/2024 10:53 AM CDT [facility] Creatinine 0.88 0.72 - 1.25 mg/dL 05/17/2024 10:53 AM CDT [facility] Alkaline Phosphatase 59 40 - 150 U/L 05/17/2024 10:53 AM CDT [facility] ALT 22 0 - 55 U/L 05/17/2024 10:53 AM CDT [facility] AST 15 5 - 34 U/L 05/17/2024 10:53 AM [facility] Protein Total 8.0 6.4 - 8.3 gm/dL 05/17/2024 10:53 AM T [facility] Albumin 3.1(L) 3.4 - 5.0 gm/dL 05/17/2024 10:53 AM CDT [facility] Bilirubin Total 0.3 0.2 - 1.2 mg/dL 05/17/2024 10:53 AM CDT [facility] eGFR by CKD-EPI >90 >=90 mL/min/1.7 3 m2 05/17/2024 10:53 AM CDT [facility] Blood BLOOD SPECIMEN / Unknown Venipuncture / Unknown 05/17/2024 10:24 AM CDT 05/17/2024 10:28 AM CDT Sarah Betancur MD LAB - CHEMISTRY CHRISTIAN RAZO [facility] Organization Address City/State/ZIP Co de Phone Number [facility] [address] [place] [address] * (ABNORMAL) CBC W AUTO DIFFERENTIAL (05/17/2024 10:24 AM CDT) WBC 7.4 4.0 - 10.7 x10E9/L 05/17/2024 10:34 AM CDT [facility] RBC Count 3.87(L) 4.30 - 5.80 x10E12/L 05/17/2024 10:34 AM CDT [facility] Hemoglobin 10.3(L) 13.3 - 17.5 g/dL 05/17/2024 10:34 AM CDT [facility] Hematocrit 33.3(L) 38.7 - 51.1 % 05/17/2024 10:34 AM CDT [facility] MCV 86.0 80.0 - 98.0 fL 05/17/2024 10:34 AM CDT [facility] MCH 26.6(L) 26.7 - 33.6 pg 05/17/2024 10:34 AM CDT [facility] MCHC 30.9(L) 31.7 - 36.3 g/dL 05/17/2024 10:34 AM CDT [facility] RDW-CV 14.6 11.3 - 14.8 % 05/17/2024 10:34 AM CDT [facility] Platelet Count 268 150 - 420 x10E9/L 05/17/2024 10:34 AM CDT [facility] MPV 9.1 7.8 - 11.4 fL 05/17/2024 10:34 AM CDT [facility] Neutrophil % 53.0 41.0 - 74.0 % 05/17/2024 10:34 AM CDT [facility] Lymphocyte % 38.6 17.0 - 47.0 % 05/17/2024 10:34 AM CDT [facility] Monocyte % 6.5 3.0 - 11.0 % 05/17/2024 10:34 AM CDT [facility] Eosinophil % 1.5 0.0 - 7.0 % 05/17/2024 10:34 AM CDT [facility] Basophil % 0.3 0.0 - 1.6 % 05/17/2024 10:34 AM CDT [facility] Immature Granulocytes % 0.1 0.0 - 1.0 % 05/17/2024 10:34 AM CDT [facility] Neutrophil Absolute 3.91 1.60 - 7.50 x10E9/L 05/17/2024 10:34 AM CDT [facility] Lymphocyte Absolute 2.85 1.00 - 4.40 x10E9/L 05/17/2024 10:34 AM CDT [facility] Monocyte Absolute 0.48 0.15 - 1.00 x10E9/L 05/17/2024 10:34 AM CDT [facility] Eosinophil Absolute 0.11 0.00 - 0.60 x10E9/L 05/17/2024 10:34 AM CDT [facility] Basophil Absolute 0.02 0.00 - 0.13 x10E9/L 05/17/2024 10:34 AM CDT [facility] Blood BLOOD SPECIMEN / Unknown Venipuncture / Unknown 05/17/2024 10:24 AM CDT 05/17/2024 10:28 AM CDT Sarah Betancur MD LAB - HEMATOLOGY ORD ERABLES [facility] [address] [place] [address] documented in this encounter Visit Diagnoses Diagnosis Fall, initial encounter Cerebrovascular accident (CVA), unspecified mechanism (HCC) Impaired ambulation documented in this encounter Administered Medications Inactive Administered Medications - up to 3 most recent administrations Medication Order MAR Action Action Date Dose Rate Site ketorolac (Toradol) injection 15 mg 15 mg, Intravenous, NOW, 1 dose, On 05/17/24 at 1330, Patient preference for lesser PRN pain meds may be honored when the patient requests a less strong medication, a lower dose, or a less intrusive route of administration when the lesser drug, dose and route have been ordered for the patient. This patient request must be documented in the MAR. If both oral and IV options are ordered for the same pain severity, give oral first unless patient cannot tolerate oral intake $ Given 05/17/2024 2:49 PM CDT 15 mg lidocaine (Lidoderm) 5 % patch 2 patch 2 patch, Administer over 12 Hours, EVERY 24 HOURS, First dose on 05/17/24 at 1330, Until Discontinued, Apply to back and remove patch after a max of 12 hours of application within a 24 hour period. $ Applied 05/19/2024 11:36 AM CDT 2 patches Back $ Applied 05/17/2024 2:51 PM CDT 2 patches Ba ck documented in this encounter Active and Recently Administered Medications Times are shown in CDT. Scheduled Medication Order 05/17/2024 05/18/2024 05/19/2024 ketorolac (Toradol) injection 15 mg (COMPLETED) 15 mg, Intravenous, NOW, 1 dose, On 05/17/24 at 1330, Patient preference for lesser PRN pain meds may be honored when the patient requests a less strong medication, a lower dose, or a less intrusive route of administration when the lesser drug, dose and route have been ordered for the patient. This patient request must be documented in the MAR. If both oral and IV options are ordered for the same pain severity, give oral first unless patient cannot tolerate oral intake 1449 ($ Given - Provider: Rafy Choudhury RN) lidocaine (Lidoderm) 5 % patch 2 patch 2 patch, Administer over 12 Hours, EVERY 24 HOURS, First dose on 05/17/24 at 1330, Until Discontinued, Apply to back and remove patch after a max of 12 hours of application within a 24 hour period. 1451 ($ Applied - Provider: Rafy Choudhury RN) 0251 (Due: Removed - Provider: Rafy Choudhury RN) 1136 ($ Applied - Provider: Triny Elliott, RN)1523 (Not Administered - Provider: Trniy Gallagher RN - Reason: Other - Comment: unknown, previous shift.)2336 (Due: Removed - Provider: Triny Gallaghre RN) documented in this encounter Care Teams Car Driver Relationship Specialty Start Date End Date Sylvain Daniels MD [address] [place] [address] PCP - General Family Medicine 05/17/24 05/19/24 Sylvain Daniels MD Family Medicine 02/15/24 documented as of this encounter
--- OUTSIDE RECORDS SUMMARY | 2024-10-11 19:41 | XMS_ITS | Encounter Summary ---
Author Organization [facility] Health Address [address] [place] [address] Care Team Providers Care Contact Worker Name Role Phone Sylvain Daniels MD Unavailable [phone] Sylvain Daniels MD Primary Care Provider [phone] Encounter Details Date Type Department Care Team (Latest Contact Info) Description 05/17/2024 Travel Social History Tobacco Use Types Packs/Day Years [...] place to sleep or slept in a [facility] (including now)? No 01/24/2024 Education Answer Date [...] st Contact Info) Description 10/20/2024 8:00 AM ADVERTISING INTERNSHIP Office Visit [facility] - Family Medicine [address] [place] [phone] Kiana Cole MD [address] [place] [address] 11/28/2024 9:00 AM ADVERTISING INTERNSHIP Office Visit [facility] - Neurology [address] [facility] [place] [address] Aline Finch MD [address] [facility] [place] [address] 02/10/2025 10:00 AM CDT Office Visit [facility] - Cardiology [address] [facility] [facility] [address] [place] [address] Curly Lay MD [address] [place] [phone] documented as of this encounter Visit Diagnoses Not on filedocumented in this encounter Care Teams Contact Worker Relationship Specialty Start Date End Date Sylvain Daniels MD [address] [place] [phone] PCP - General Family Medicine 05/17/24 05/19/24 Sylvain Daniels MD Family Medicine 02/15/24 documented as of this encounter
--- OUTSIDE RECORDS SUMMARY | 2024-10-11 19:41 | XMS_ITS | Encounter Summary ---
Author Organization [facility] Address [address] [place] [address] Care Team Providers Care Emergency Response Coordinator Name Role Phone None, Physician Primary Care Provider Sylvain Hopper MD Unavailable [phone] Encounter Details Date Type Department Care Team (Latest Contact Info) Description 03/12/2024 7:10 PM CDT - 04/11/2024 12:49 PM CDT Hospital Encounter [address] [id number] Aishwarya Barrera MD [address] [place] [address] [place] [phone] [facility] Discharge Disposition: Jail Facility Social History Tobacco Use Types Packs/Day Years Used Date Smoking Tobacco: Never Assessed Cigars Started: 1997 Smokeless Tobacco: Never Comments:3-4 [...] place to sleep or slept in a custodial (including now)? No 01/24/2024 Education Answer Date [...] No 01/24/2024 documented as of this encounter Medications at Time of Discharge [...] G Tube route every 8 hours 03/12/2024 insulin aspart (NovoLOG) pen Inject 0 (zero) [...] 02/16/2024 08/29/2024 documented as of this encounter Plan of Treatment Upcoming Encounters Date Type Department Care Team (Late st Contact Info) Description 10/20/2024 8:00 AM GRINDER CHIPPER Office Visit [facility] - Family Medicine [address] [place] [phone] Kiana Cole MD [address] [place] [address] 11/28/2024 9:00 AM GRINDER CHIPPER Office Visit [facility] - Neurology [address] [facility], [place] [phone] Aline Finch MD [address] [facility] [place] [address] 02/10/2025 10:00 AM CDT Office Visit [facility] - Cardiology [address] [facility] [place] [phone] Curly Lay MD [address] [facility] [address] [place] [phone] documented as of this encounter Procedures Procedure Name Priority Date/Time Associated Diagnosis Comments SARS-COV-2 (COVID-19) RAPID Routine 04/10/2024 1:24 PM CDT CBC W/O DIFFERENTIAL Routine 04/10/2024 7:55 AM CDT BASIC METABOLIC PANEL (CALCIUM TOTAL) Routine 04/10/2024 7:55 AM CDT XR CHEST 1VW PORTABLE Routine 04/08/2024 6:20 PM CDT CBC W/O DIFFERENTIAL Routine 04/07/2024 4:22 AM CDT BASIC METABOLIC PANEL (CALCIUM TOTAL) Routine 04/07/2024 4:22 AM CDT FL SWALLOWING FUNCTION STUDY Routine 04/04/2024 1:55 PM CDT CBC W/O DIFFERENTIAL Routine 04/03/2024 6:47 AM CDT BASIC METABOLIC PANEL (CALCIUM TOTAL) Routine 04/03/2024 6:47 AM CDT CBC W/O DIFFERENTIAL Routine 03/31/2024 4:34 AM CDT BASIC METABOLIC PANEL (CALCIUM TOTAL) Routine 03/31/2024 4:34 AM CDT CBC W/O DIFFERENTIAL Routine 03/27/2024 2:43 AM CDT BASIC METABOLIC PANEL (CALCIUM TOTAL) Routine 03/27/2024 2:43 AM CDT CBC W/O DIFFERENTIAL Routine 03/24/2024 3:39 AM CDT BASIC METABOLIC PANEL (CALCIUM TOTAL) Routine 03/24/2024 3:39 AM CDT CBC W/O DIFFERENTIAL Routine 03/20/2024 3:55 AM CDT BASIC METABOLIC PANEL (CALCIUM TOTAL) Routine 03/20/2024 3:[address] HEAD WO CONTRAST STAT 03/19/2024 1 :25 PM CDT CBC W/O DIFFERENTIAL Routine 03/17/2024 3:53 AM CDT BASIC METABOLIC PANEL (CALCIUM TOTAL) Routine 03/17/2024 3:53 AM CDT CBC W/O DIFFERENTIAL Routine 03/13/2024 3:09 AM CDT BASIC METABOLIC PANEL (CALCIUM TOTAL) Routine 03/13/2024 3:09 AM CDT documented in this encounter Results * SARS-COV-2 (COVID-19) RAPID (04/10/2024 1:24 PM CDT) COVID-19 PCR Not detected Not detected 04/10/20 2:48 PM CDT [facility] Other ENTIRE NASOPHARYNX / Unknown Collection / Unknown 04/10/2024 1:24 PM CDT 04/10/2024 2:[address] [facility] - 04/10/2024 2:48 PM CDT The [...] Aishwarya Barrera MD LAB - MICROBIOLOGY O RDERABLES [facility] [address] [place] [address] * (ABNORMAL) BASIC METABOLIC PANEL (CALCIUM TOTAL) (04/10/2024 7:55 AM CDT) Glucose 143(H) 70 - 105 mg/dL 04/10/2024 8:42 AM CDT [facility] Sodium 135(L) 136 - 145 mmol/L 04/10/2024 8:42 AM CDT [facility] Potassium 4.5 3.5 - 5.1 mmol/L 04/10/2024 8:42 AM CDT [facility] Chloride 99 98 - 107 mmol/L 04/10/2024 8:42 AM CDT [facility] CO2 28 22 - 29 mmol/L 04/10/2024 8:42 AM CDT [facility] Calcium 10.2 8.4 - 10.4 mg/dL 04/10/2024 8:42 AM CDT [facility] Anion Gap 8 6 - 16 mmol/L 04/10/2024 8:42 AM CDT [facility] BUN 23 7 - 26 mg/dL 04/10/2024 8:42 AM CDT [facility] Creatinine 1.05 0.72 - 1.25 mg/dL 04/10/2024 8:42 AM CDT [facility] eGFR by CKD-EPI 79(L) >=90 mL/min/1.7 3 m2 04/10/2024 8:42 AM CDT [facility] Blood BLOOD SPECIMEN / Unknown Venipuncture / Unknown 04/10/2024 7:55 AM CDT 04/10/2024 8:16 AM CDT Fly Kearney MD LAB - CHEMISTRY ORD ERABLES Performing Organization Address City/State/[facility] Co de Phone Number [facility] [address] [place], [place] [phone] * (ABNORMAL) CBC W/O DIFFERENTIAL (04/10/2024 7:55 AM CDT) WBC 8.3 4.0 - 10.7 x10E9/L 04/10/2024 8:24 AM CDT [facility] RBC Count 4.17(L) 4.30 - 5.80 x10E12/L 04/10/2024 8:24 AM CDT [facility] Hemoglobin 11.3(L) 13.3 - 17.5 g/dL 04/10/2024 8:[facility] Hematocrit 36.8(L) 38.7 - 51.1 % 04/10/2024 8:24 AM [facility] MCV 88.2 80.0 - 98.0 fL 04/10/2024 8:24 AM CDT [facility] MCH 27.1 26.7 - 33.6 pg 04/10/2024 8:24 AM CDT [facility] MCHC 30.7(L) 31.7 - 36.3 g/dL 04/10/2024 8:24 AM CDT [facility] RDW-CV 14.2 11.3 - 14.8 % 04/10/2024 8:24 AM CDT [facility] Platelet Count 316 150 - 420 x10E9/L 04/10/2024 8:24 AM CDT [facility] MPV 9.3 7.8 - 11.4 fL 04/10/2024 8:24 AM CDT [facility] Blood BLOOD SPECIMEN / Unknown Venipuncture / Unknown 04/10/2024 7:55 AM CDT 04/10/2024 8:16 AM CDT Fly Kearney MD LAB - HEMATOLOGY OR DERABLES Performing Organization Address City/State/[facility] Co de Phone Number [facility] [address] [place] [address] * XR CHEST 1VW PORTABLE (04/08/2024 6:20 PM CDT) Anatomical Region Laterality Modality Chest Radiographic Love ging 04/08/2024 6:38 PM CDT Impressions 04/08/2024 6:39 PM CDT IMPRESSION: No evidence of acute pulmonary disease. > Interpreting Provider: Kel Shah MD on 04/08/2024 6:39 PM Narrative 04/08/2024 6:39 PM CDT PROCEDURE: ??XR CHEST 1VW PORTABLE DATE/TIME OF EXAM: ??04/08/2024 6:34 PM CLINICAL INFORMATION: None relevant/not provided if blank. Indication: coughing Additional History: COMPARISON: 02/27/2024 FINDINGS: ??Median sternotomy wires are well aligned. No confluent consolidation or definite effusion/pneumothorax is seen. The cardiomediastinal silhouette is stable. Procedure Note Kel Shah MD - 04/08/2024 PROCEDURE: XR CHEST 1VW PORTABLE DATE/TIME OF EXAM: 04/08/2024 6:34 PM CLINICAL INFORMATION: None relevant/not provided if blank. Indication: coughing Additional History: COMPARISON: 02/27/2024 FINDINGS: Median sternotomy wires are well aligned. No confluent consolidation or definite effusion/pneumothorax is seen.The cardiomediastinal silhouette is stable. IMPRESSION: No evidence of acute pulmonary disease. > Interpreting Provider: Kel Shah MD on 04/08/2024 6:39 PM Fly Kearney MD DIAGNOSTIC IMAGING ORDERABLES * (ABNORMAL) BASIC METABOLIC PANEL (CALCIUM TOTAL) (04/07/2024 4:22 AM CDT) Pathologist [facility] Glucose 112(H) 70 - 105 mg/dL 04/07/2024 5:32 AM CDT [facility] Sodium 135(L) 136 - 145 mmol/L 04/07/2024 5:32 AM CDT [facility] Potassium 4.0 3.5 - 5.1 mmol/L 04/07/2024 5:32 AM CDT [facility] Chloride 100 98 - 107 mmol/L 04/07/2024 5:32 AM CDT [facility] CO2 26 22 - 29 mmol/L 04/07/2024 5:32 AM CDT [facility] Calcium 9.7 8.4 - 10.4 mg/dL 04/07/2024 5:32 AM CDT [facility] Anion Gap 9 6 - 16 mmol/L 04/07/2024 5:32 AM CDT [facility] BUN 22 7 - 26 mg/dL 04/07/2024 5:32 AM CDT [facility] Creatinine 0.87 0.72 - 1.25 mg/dL 04/07/2024 5:32 AM [facility] eGFR by CKD-EPI >90 >=90 mL/min/1.7 3 m2 04/07/2024 5:32 AM T [facility] Blood BLOOD SPECIMEN / Unknown Venipuncture / Unknown 04/07/2024 4:22 AM CDT 04/07/2024 5:06 AM CDT Fly Kearney MD LAB - CHEMISTRY ORD ERABLES [facility] [address] [place], [place] [phone] * (ABNORMAL) CBC W/O DIFFERENTIAL (04/07/2024 4:22 AM CDT) Pathologist [facility] WBC 7.8 4.0 - 10.7 x10E9/L 04/07/2024 5:19 AM CDT [facility] RBC Count 3.81(L) 4.30 - 5.80 x10E12/L 04/07/2024 5:19 AM CDT [facility] Hemoglobin 10.4(L) 13.3 - 17.5 g/dL 04/07/2024 5:19 AM CDT [facility] Hematocrit 33.9(L) 38.7 - 51.1 % 04/07/2024 5:19 AM CDT [facility] MCV 89.0 80.0 - 98.0 fL 04/07/2024 5:19 AM CDT [facility] MCH 27.3 26.7 - 33.6 pg 04/07/2024 5:19 AM CDT [facility] MCHC 30.7(L) 31.7 - 36.3 g/dL 04/07/2024 5:19 AM CDT [facility] RDW-CV 14.2 11.3 - 14.8 % 04/07/2024 5:19 AM CDT [facility] Platelet Count 297 150 - 420 x10E9/L 04/07/2024 5:19 AM CDT [facility] MPV 9.4 7.8 - 11.4 fL 04/07/2024 5:19 AM CDT [facility] Blood BLOOD SPECIMEN / Unknown Venipuncture / Unknown 04/07/2024 4:22 AM CDT 04/07/2024 5:00 AM CDT Fly Kearney MD LAB - HEMATOLOGY OR DERABLES Performing Organization Address [facility] Co de Phone Number [facility] [address] [place] [address] * [place] SWALLOWING FUNCTION STUDY (04/04/2024 1:55 PM CDT) Anatomical Region Laterality Modality Chest Radiographic Love ging 04/11/2024 12:4 6 PM CDT Impressions 04/11/2024 12:49 PM CDT IMPRESSION: Laryngeal penetration. Please see the dedicated speech pathology report for further details. > Interpreting Provider: Kel Shah MD on 04/11/2024 12:49 PM Narrative 04/11/2024 12:49 PM CDT PROCEDURE: ??FL SWALLOWING FUNCTION STUDY DATE/TIME OF EXAM: ??04/04/2024 2:01 PM CLINICAL INFORMATION: None relevant/not provided if blank. Indication: dysphagia Additional History: COMPARISON: None. FINDINGS: Multiple fluoroscopic images are obtained during modified swallow examination performed by speech pathology. There is recurrent laryngeal penetration. FLUOROSCOPY DOSE: ??12.25 mGy Reference air kerma (ka,r). Procedure Note Kel Shah MD - 04/11/2024 PROCEDURE: FL SWALLOWING FUNCTION STUDY DATE/TIME OF EXAM: 04/04/2024 2:01 PM CLINICAL INFORMATION: None relevant/not provided if blank. Indication: dysphagia Additional History: COMPARISON: None. FINDINGS: Multiple fluoroscopic images are obtained during modified swallow examination performed by speech pathology. There is recurrent laryngeal penetration. FLUOROSCOPY DOSE: 12.25 mGy Reference air kerma (ka,r). IMPRESSION: Laryngeal penetration. Please see the dedicated speech pathology reportfor further details. > Interpreting Provider: Kel Shah MD on 04/11/2024 12:49 PM Aishwarya Barrera MD FLUOROSCOPY ORDERABL ES * (ABNORMAL) BASIC METABOLIC PANEL (CALCIUM TOTAL) (04/03/2024 6:47 AM CDT) Glucose 140(H) 70 - 105 mg/dL 04/03/2024 7:29 AM CDT [facility] Sodium 136 136 - 145 mmol/L 04/03/2024 7:29 AM CDT [facility] Potassium 3.9 3.5 - 5.1 mmol/L 04/03/2024 7:29 AM CDT [facility] Chloride 101 98 - 107 mmol/L 04/03/2024 7:29 AM CDT [facility] CO2 26 22 - 29 mmol/L 04/03/2024 7:29 AM CDT [facility] Calcium 9.5 8.4 - 10.4 mg/dL 04/03/2024 7:29 AM CDT [facility] Anion Gap 9 6 - 16 mmol/L 04/03/2024 7:29 AM CDT [facility] BUN 21 7 - 26 mg/dL 04/03/2024 7:29 AM CDT [facility] Creatinine 0.85 0.72 - 1.25 mg/dL 04/03/2024 7:29 AM CDT [facility] eGFR by CKD-EPI >90 >=90 mL/min/1.7 3 m2 04/03/2024 7:29 AM CDT [facility] Blood BLOOD SPECIMEN / Unknown Lab Venipuncture / Unknown 04/03/2024 6:47 AM CDT 04/03/2024 7:11 AM CDT Fly Kearney MD LAB - CHEMISTRY ORD ERABLES [facility] [address] [place], [place] [id number] * (ABNORMAL) CBC W/O DIFFERENTIAL (04/03/2024 6:47 AM CDT) WBC 6.9 4.0 - 10.7 x10E9/L 04/03/2024 7:23 AM CDT [facility] RBC Count 3.64(L) 4.30 - 5.80 x10E12/L 04/03/2024 7:23 AM CDT [facility] Hemoglobin 9.9(L) 13.3 - 17.5 g/dL 04/03/2024 7:23 AM CDT [facility] Hematocrit 32.3(L) 38.7 - 51.1 % 04/03/2024 7:23 AM CDT [facility] MCV 88.7 80.0 - 98.0 fL 04/03/2024 7:23 AM CDT [facility] MCH 27.2 26.7 - 33.6 pg 04/03/2024 7:23 AM CDT [facility] MCHC 30.7(L) 31.7 - 36.3 g/dL 04/03/2024 7:23 AM CDT [facility] RDW-CV 14.1 11.3 - 14.8 % 04/03/2024 7:23 AM CDT [facility] Platelet Count 271 150 - 420 x10E9/L 04/03/2024 7:23 AM CDT [facility] MPV 9.5 7.8 - 11.4 fL 04/03/2024 7:23 AM CDT [facility] Blood BLOOD SPECIMEN / Unknown Lab Venipuncture / Unknown 04/03/2024 6:47 AM CDT 04/03/2024 7:11 AM CDT Fly Kearney MD LAB - HEMATOLOGY OR DERABLES [facility] [address] [place] [address] * (ABNORMAL) BASIC METABOLIC PANEL (CALCIUM TOTAL) (03/31/2024 4:34 AM CDT) Glucose 124(H) 70 - 105 mg/dL 03/31/2024 6:05 AM CDT [facility] Sodium 137 136 - 145 mmol/L 03/31/2024 6:05 AM CDT [facility] Potassium 4.2 3.5 - 5.1 mmol/L 03/31/2024 6:05 AM T [facility] Chloride 101 98 - 107 mmol/L 03/31/2024 6:05 AM CDT [facility] CO2 27 22 - 29 mmol/L 03/31/2024 6:05 AM T [facility] Calcium 9.8 8.4 - 10.4 mg/dL 03/31/2024 6:05 AM [facility] Anion Gap 9 6 - 16 mmol/L 03/31/2024 6:05 AM T [facility] BUN 23 7 - 26 mg/dL 03/31/2024 6:05 AM T [facility] Creatinine 0.96 0.72 - 1.25 mg/dL 03/31/2024 6:05 AM [facility] eGFR by CKD-EPI 88(L) >=90 mL/min/1.7 3 m2 03/31/2024 6:05 AM T [facility] Blood BLOOD SPECIMEN / Unknown Lab Venipuncture / Unknown 03/31/2024 4:34 AM CDT 03/31/2024 5:37 AM CDT Fly Kearney MD LAB - CHEMISTRY ORD ERABLES [facility] [address] [place] [address] * (ABNORMAL) CBC W/O DIFFERENTIAL (03/31/2024 4:34 AM CDT) WBC 8.9 4.0 - 10.7 x10E9/L 03/31/2024 5:52 AM CDT [facility] RBC Count 3.60(L) 4.30 - 5.80 x10E12/L 03/31/2024 5:52 AM CDT [facility] Hemoglobin 9.9(L) 13.3 - 17.5 g/dL 03/31/2024 5:52 AM CDT [facility] Hematocrit 32.0(L) 38.7 - 51.1 % 03/31/2024 5:52 AM CDT [facility] MCV 88.9 80.0 - 98.0 fL 03/31/2024 5:52 AM CDT [facility] MCH 27.5 26.7 - 33.6 pg 03/31/2024 5:52 AM CDT [facility] MCHC 30.9(L) 31.7 - 36.3 g/dL 03/31/2024 5:52 AM CDT [facility] RDW-CV 14.2 11.3 - 14.8 % 03/31/2024 5:52 AM CDT [facility] Platelet Count 283 150 - 420 x10E9/L 03/31/2024 5:52 AM CDT [facility] MPV 9.8 7.8 - 11.4 fL 03/31/2024 5:52 AM CDT [facility] Blood BLOOD SPECIMEN / Unknown Lab Venipuncture / Unknown 03/31/2024 4:34 AM CDT 03/31/2024 5:37 AM CDT Fly Kearney MD LAB - HEMATOLOGY OR DERABLES [facility] [address] [place], [place] [id number] * (ABNORMAL) BASIC METABOLIC PANEL (CALCIUM TOTAL) (03/27/2024 2:43 AM CDT) [facility] Glucose 115(H) 70 - 105 mg/dL 03/27/2024 4:29 AM CDT [facility] Sodium 136 136 - 145 mmol/L 03/27/2024 4:29 AM CDT [facility] Potassium 4.2 3.5 - 5.1 mmol/L 03/27/2024 4:29 AM CDT [facility] Chloride 99 98 - 107 mmol/L 03/27/2024 4:29 AM CDT [facility] CO2 27 22 - 29 mmol/L 03/27/2024 4:29 AM CDT [facility] Calcium 9.7 8.4 - 10.4 mg/dL 03/27/2024 4:29 AM CDT [facility] Anion Gap 10 6 - 16 mmol/L 03/27/2024 4:29 AM CDT [facility] BUN 21 7 - 26 mg/dL 03/27/2024 4:29 AM CDT [facility] Creatinine 0.86 0.72 - 1.25 mg/dL 03/27/2024 4:29 AM CDT [facility] eGFR by CKD-EPI >90 >=90 mL/min/1.7 3 m2 03/27/2024 4:29 AM CDT [facility] Blood BLOOD SPECIMEN / Unknown Lab Venipuncture / Unknown 03/27/2024 2:43 AM CDT 03/27/2024 3:49 AM CDT Fly Kearney MD LAB - CHEMISTRY ORD ERABLES [facility] [address] [place] [address] * (ABNORMAL) CBC W/O DIFFERENTIAL (03/27/2024 2:43 AM CDT) WBC 8.5 4.0 - 10.7 x10E9/L 03/27/2024 4:04 AM CDT [facility] RBC Count 3.53(L) 4.30 - 5.80 x10E12/L 03/27/2024 4:04 AM CDT [facility] Hemoglobin 9.8(L) 13.3 - 17.5 g/dL 03/27/2024 4:04 AM CDT [facility] Hematocrit 31.5(L) 38.7 - 51.1 % 03/27/2024 4:04 AM CDT [facility] MCV 89.2 80.0 - 98.0 fL 03/27/2024 4:04 AM CDT [facility] MCH 27.8 26.7 - 33.6 pg 03/27/2024 4:04 AM CDT [facility] MCHC 31.1(L) 31.7 - 36.3 g/dL 03/27/2024 4:04 AM CDT [facility] RDW-CV 14.2 11.3 - 14.8 % 03/27/2024 4:04 AM CDT [facility] Platelet Count 252 150 - 420 x10E9/L 03/27/2024 4:04 AM CDT [facility] MPV 10.0 7.8 - 11.4 fL 03/27/2024 4:04 AM CDT [facility] Blood BLOOD SPECIMEN / Unknown Lab Venipuncture / Unknown 03/27/2024 2:43 AM CDT 03/27/2024 3:49 AM CDT Fly Kearney MD LAB - HEMATOLOGY OR DERABLES Performing Organization Address City/State/[facility] Co de Phone Number [facility] [address] [place] [address] * (ABNORMAL) BASIC METABOLIC PANEL (CALCIUM TOTAL) (03/24/2024 3:39 AM CDT) Glucose 137(H) 70 - 105 mg/dL 03/24/2024 5:18 AM CDT [facility] Sodium 136 136 - 145 mmol/L 03/24/2024 5:18 AM CDT [facility] Potassium 4.3 3.5 - 5.1 mmol/L 03/24/2024 5:18 AM CDT [facility] Chloride 99 98 - 107 mmol/L 03/24/2024 5:18 AM CDT [facility] CO2 28 22 - 29 mmol/L 03/24/2024 5:18 AM CDT [facility] Calcium 9.9 8.4 - 10.4 mg/dL 03/24/2024 5:18 AM CDT [facility] Anion Gap 9 6 - 16 mmol/L 03/24/2024 5:18 AM CDT [facility] BUN 20 7 - 26 mg/dL 03/24/2024 5:18 AM CDT [facility] Creatinine 1.00 0.72 - 1.25 mg/dL 03/24/2024 5:[facility] eGFR by CKD-EPI 84(L) >=90 mL/min/1.7 3 m2 03/24/2024 5:18 AM [facility] Blood BLOOD SPECIMEN / Unknown Lab Venipuncture / Unknown 03/24/2024 3:39 AM CDT 03/24/2024 4:44 AM CDT Fly Kearney MD LAB - CHEMISTRY ORD ERABLES [facility] [address] [place] [address] * (ABNORMAL) CBC W/O DIFFERENTIAL (03/24/2024 3:39 AM CDT) WBC 9.3 4.0 - 10.7 x10E9/L 03/24/2024 5:05 AM [facility] RBC Count 3.69(L) 4.30 - 5.80 x10E12/L 03/24/2024 5:05 AM [facility] Hemoglobin 10.2(L) 13.3 - 17.5 g/dL 03/24/2024 5:05 AM [facility] Hematocrit 33.3(L) 38.7 - 51.1 % 03/24/2024 5:05 AM [facility] MCV 90.2 80.0 - 98.0 fL 03/24/2024 5:05 AM [facility] MCH 27.6 26.7 - 33.6 pg 03/24/2024 5:05 AM [facility] MCHC 30.6(L) 31.7 - 36.3 g/dL 03/24/2024 5:05 AM [facility] RDW-CV 14.0 11.3 - 14.8 % 03/24/2024 5:05 AM [facility] Platelet Count 270 150 - 420 x10E9/L 03/24/2024 5:05 AM [facility] MPV 9.5 7.8 - 11.4 fL 03/24/2024 5:05 AM [facility] Blood BLOOD SPECIMEN / Unknown Lab Venipuncture / Unknown 03/24/2024 3:39 AM CDT 03/24/2024 4:46 AM CDT Fly Kearney MD LAB - HEMATOLOGY OR DERABLES Performing Organization Address City/[facility]/ZIP Co de Phone Number [facility] [address] [place], [place] [phone] * (ABNORMAL) BASIC METABOLIC PANEL (CALCIUM TOTAL) (03/20/2024 3:55 AM CDT) [facility] Glucose 152(H) 70 - 105 mg/dL 03/20/2024 5:20 AM CDT [facility] Sodium 138 136 - 145 mmol/L 03/20/2024 5:20 AM CDT [facility] Potassium 3.8 3.5 - 5.1 mmol/L 03/20/2024 5:20 AM CDT [facility] Chloride 101 98 - 107 mmol/L 03/20/2024 5:20 AM CDT [facility] CO2 27 22 - 29 mmol/L 03/20/2024 5:20 AM CDT [facility] Calcium 9.4 8.4 - 10.4 mg/dL 03/20/2024 5:20 AM CDT [facility] Anion Gap 10 6 - 16 mmol/L 03/20/2024 5:20 AM CDT [facility] BUN 26 7 - 26 mg/dL 03/20/2024 5:20 AM CDT [facility] Creatinine 0.95 0.72 - 1.25 mg/dL 03/20/2024 5:20 AM T [facility] eGFR by CKD-EPI 89(L) >=90 mL/min/1.7 3 m2 03/20/2024 5:20 AM CDT [facility] Blood BLOOD SPECIMEN / Unknown Lab Venipuncture / Unknown 03/20/2024 3:55 AM CDT 03/20/2024 4:43 AM CDT Fly Kearney MD LAB - CHEMISTRY ORD ERABLES Performing Organization Address City/[facility]/ZIP Co de Phone Number [facility] [address] [place] [address] * (ABNORMAL) CBC W/O DIFFERENTIAL (03/20/2024 3:55 AM CDT) [facility] WBC 7.4 4.0 - 10.7 x10E9/L 03/20/2024 5:04 AM CDT [facility] RBC Count 3.42(L) 4.30 - 5.80 x10E12/L 03/20/2024 5:04 AM CDT [facility] Hemoglobin 9.4(L) 13.3 - 17.5 g/dL 03/20/2024 5:04 AM CDT [facility] Hematocrit 31.1(L) 38.7 - 51.1 % 03/20/2024 5:04 AM CDT [facility] MCV 90.9 80.0 - 98.0 fL 03/20/2024 5:04 AM CDT [facility] MCH 27.5 26.7 - 33.6 pg 03/20/2024 5:04 AM CDT [facility] MCHC 30.2(L) 31.7 - 36.3 g/dL 03/20/2024 5:04 AM CDT [facility] RDW-CV 14.2 11.3 - 14.8 % 03/20/2024 5:04 AM CDT [facility] Platelet Count 234 150 - 420 x10E9/L 03/20/2024 5:04 AM CDT [facility] MPV 10.0 7.8 - 11.4 fL 03/20/2024 5:04 AM CDT [facility] Blood BLOOD SPECIMEN / Unknown Lab Venipuncture / Unknown 03/20/2024 3:55 AM CDT 03/20/2024 4:43 AM CDT Fly Kearney MD LAB - HEMATOLOGY OR DERABLES Performing Organization Address City/State/[facility] Co de Phone Number [facility] [address] [phone] * CT HEAD WO CONTRAST (03/19/2024 1:25 PM CDT) Anatomical Region Laterality Modality Head Computed Tomogra phy 03/19/2024 1:26 PM CDT Impressions 03/19/2024 1:29 PM CDT IMPRESSION: 1. No acute intracranial hemorrhage, midline shift, or significant mass effect. > Interpreting Provider: Kel Shah MD on 03/19/2024 1:29 PM Narrative 03/19/2024 1:29 PM CDT PROCEDURE: ??CT HEAD WO CONTRAST DATE/TIME OF EXAM: ??03/19/2024 1:25 PM CLINICAL INFORMATION: None relevant/not provided if blank. Indication: altered mental status, known cva Additional History: COMPARISON: None. TECHNIQUE: Noncontrast CT brain was performed utilizing standard protocol. CT dose reduction technique was used, including Automated Exposure Control. FINDINGS: No acute intra- or extra-axial fluid collections are identified. There is mild cerebral volume loss with associated ex vacuo ventricular dilatation. The basilar cisterns are patent. No mass effect or midline shift is seen. The mcgraw-white matter differentiation is normal. Periventricular white matter hypoattenuation as well as multiple lacunar infarcts in the right periventricular white matter and basal ganglia are indicative of chronic small vessel ischemic disease. Other than bilateral mastoid effusions and mild ethmoid sinus disease, the visualized portions of the orbits, paranasal sinuses, and mastoids appear normal. No acute fracture is identified. Procedure Note Kel Shah MD - 03/19/2024 PROCEDURE: CT HEAD WO CONTRAST DATE/TIME OF EXAM: 03/19/2024 1:25 PM CLINICAL INFORMATION: None relevant/not provided if blank. Indication: altered mental status, known cva Additional History: COMPARISON: None. TECHNIQUE: Noncontrast CT brain was performed utilizing standard protocol. CT dose reduction technique was used, including Automated ExposureControl. FINDINGS: No acute intra- or extra-axial fluid collections are identified. Thereis mild cerebral volume loss with associated ex vacuo ventriculardilatation. The basilar cisterns are patent. No mass effect or midline shift isseen. The mcgraw-white matter differentiation is normal. Periventricular white matter hypoattenuation as well as multiple lacunar infarcts in the right periventricular white matter and basal ganglia are indicative of chronic small vessel ischemic disease. Other than bilateral mastoid effusionsand mild ethmoid sinus disease, the visualized portions of the orbits, paranasal sinuses, and mastoids appear normal. No acute fracture is identified. IMPRESSION: 1. No acute intracranial hemorrhage, midline shift, or significant mass effect. > Interpreting Provider: Kel Shah MD on 03/19/2024 1:29 PM Fly Kearney MD CT ORDERABLES * (ABNORMAL) BASIC METABOLIC PANEL (CALCIUM TOTAL) (03/17/2024 3:53 AM CDT) Glucose 127(H) 70 - 105 mg/dL 03/17/2024 5:44 AM CDT [facility] Sodium 138 136 - 145 mmol/L 03/17/2024 5:44 AM CDT [facility] Potassium 3.6 3.5 - 5.1 mmol/L 03/17/2024 5:44 AM CDT [facility] Chloride 103 98 - 107 mmol/L 03/17/2024 5:44 AM CDT [facility] CO2 24 22 - 29 mmol/L 03/17/2024 5:44 AM CDT [facility] Calcium 9.9 8.4 - 10.4 mg/dL 03/17/2024 5:44 AM CDT [facility] Anion Gap 11 6 - 16 mmol/L 03/17/2024 5:44 AM CDT [facility] BUN 19 7 - 26 mg/dL 03/17/2024 5:44 AM CDT [facility] Creatinine 0.90 0.72 - 1.25 mg/dL 03/17/2024 5:44 AM CDT [facility] eGFR by CKD-EPI >90 >=90 mL/min/1.7 3 m2 03/17/2024 5:44 AM CDT [facility] Blood BLOOD SPECIMEN / Unknown Lab Venipuncture / Unknown 03/17/2024 3:53 AM CDT 03/17/2024 5:13 AM CDT Fly Kearney MD LAB - CHEMISTRY ORD ERABLES [facility] [address] [place] [address] * (ABNORMAL) CBC W/O DIFFERENTIAL (03/17/2024 3:53 AM CDT) WBC 8.3 4.0 - 10.7 x10E9/L 03/17/2024 5:47 AM CDT [facility] RBC Count 4.00(L) 4.30 - 5.80 x10E12/L 03/17/2024 5:47 AM CDT [facility] Hemoglobin 11.0(L) 13.3 - 17.5 g/dL 03/17/2024 5:47 AM CDT [facility] Hematocrit 36.1(L) 38.7 - 51.1 % 03/17/2024 5:47 AM CDT [facility] MCV 90.3 80.0 - 98.0 fL 03/17/2024 5:47 AM CDT [facility] MCH 27.5 26.7 - 33.6 pg 03/17/2024 5:47 AM CDT [facility] MCHC 30.5(L) 31.7 - 36.3 g/dL 03/17/2024 5:47 AM CDT [facility] RDW-CV 13.9 11.3 - 14.8 % 03/17/2024 5:47 AM CDT [facility] Platelet Count 263 150 - 420 x10E9/L 03/17/2024 5:47 AM CDT [facility] MPV 9.5 7.8 - 11.4 fL 03/17/2024 5:47 AM CDT [facility] Blood BLOOD SPECIMEN / Unknown Lab Venipuncture / Unknown 03/17/2024 3:53 AM CDT 03/17/2024 5:13 AM CDT Fly Kearney MD LAB - HEMATOLOGY OR DERABLES Performing Organization Address City/State/[facility] Co de Phone Number [facility] [address] [place], [place] [phone] * (ABNORMAL) BASIC METABOLIC PANEL (CALCIUM TOTAL) (03/13/2024 3:09 AM CDT) [facility] Glucose 196(H) 70 - 105 mg/dL 03/13/2024 5:01 AM CDT [facility] Sodium 134(L) 136 - 145 mmol/L 03/13/2024 5:01 AM CDT [facility] Potassium 3.8 3.5 - 5.1 mmol/L 03/13/2024 5:01 AM CDT [facility] Chloride 96(L) 98 - 107 mmol/L 03/13/2024 5:01 AM CDT [facility] CO2 28 22 - 29 mmol/L 03/13/2024 5:01 AM CDT [facility] Calcium 9.8 8.4 - 10.4 mg/dL 03/13/2024 5:01 AM CDT [facility] Anion Gap 10 6 - 16 mmol/L 03/13/2024 5:01 AM CDT [facility] BUN 29(H) 7 - 26 mg/dL 03/13/2024 5:01 AM CDT [facility] Creatinine 1.00 0.72 - 1.25 mg/dL 03/13/2024 5:01 AM [facility] eGFR by CKD-EPI 84(L) >=90 mL/min/1.7 3 m2 03/13/2024 5:01 AM [facility] Blood BLOOD SPECIMEN / Unknown Lab Venipuncture / Unknown 03/13/2024 3:09 AM CDT 03/13/2024 4:29 AM CDT Fly Kearney MD LAB - CHEMISTRY ORD ERABLES [facility] [address] [place] [address] * (ABNORMAL) CBC W/O DIFFERENTIAL (03/13/2024 3:09 AM CDT) [facility] WBC 8.9 4.0 - 10.7 x10E9/L 03/13/2024 4:[facility] RBC Count 3.79(L) 4.30 - 5.80 x10E12/L 03/13/2024 4:40 AM CDT [facility] Hemoglobin 10.6(L) 13.3 - 17.5 g/dL 03/13/2024 4:40 AM CDT [facility] Hematocrit 34.3(L) 38.7 - 51.1 % 03/13/2024 4:40 AM CDT [facility] MCV 90.5 80.0 - 98.0 fL 03/13/2024 4:40 AM CDT [facility] MCH 28.0 26.7 - 33.6 pg 03/13/2024 4:40 AM CDT [facility] MCHC 30.9(L) 31.7 - 36.3 g/dL 03/13/2024 4:40 AM CDT [facility] RDW-CV 14.3 11.3 - 14.8 % 03/13/2024 4:40 AM CDT [facility] Platelet Count 232 150 - 420 x10E9/L 03/13/2024 4:40 AM CDT [facility] MPV 10.0 7.8 - 11.4 fL 03/13/2024 4:40 AM CDT [facility] Blood BLOOD SPECIMEN / Unknown Lab Venipuncture / Unknown 03/13/2024 3:09 AM CDT 03/13/2024 4:29 AM CDT Fly Kearney MD LAB - HEMATOLOGY OR DERABLES Performing Organization Address [facility] de Phone Number [facility] [address] [place] [address] documented in this encounter Visit Diagnoses Not on filedocumented in this encounter Additional Health Concerns Infection Onset Date Last Indicated Resolved Time COVID-19 Under Investigation 04/10/2024 04/10/2024 04/10/2024 2:48 PM CDT documented as of this encounter Care Teams Emergency Response Coordinator Relationship Specialty Start Date End Date None, Physician [address] [place] [address] PCP - General 02/15/24 05/16/24 Sylvain Daniels MD [address] [place] [address] Family Medicine 02/15/24 documented as of this encounter
--- OUTSIDE RECORDS SUMMARY | 2024-10-11 19:41 | XMS_ITS | Encounter Summary ---
Author Organization [facility] Health Address [address] [facility] [place] [address] Care Team Providers Care Bond Broker Name Role Phone None, Physician Primary Care Provider Sylvain Hopper MD Unavailable [phone] Reason for Visit * Reason Comments FEEDING TUBE PROBLEM [facility]IBEMS from [facility] s/p unintentional G-tube removal. Patient denies pain, aox2-3.PMHx dysphagia. Encounter Details Date Type Department Care Team (Late st Contact Info) Description 04/28/2024 8:36 AM CDT - 04/28/2024 12:13 PM T Emergency [facility] EMERGENCY DEPARTMENT [address] [place] [phone] Jeffrey Rivera MD [address] [place] [address] Complaint associated with gastric tube (HCC) (Primary Dx); Left upper quadrant abdominal pain; Encounter for feeding tube placement Discharge Disposition: Nursing Facility:Medicaid Social History Tobacco Use Types Packs/Day Years [...] place to sleep or slept in a alf (including now)? No 01/24/2024 Education Answer Date [...] Sign Reading Time Taken Comments Blood Pressure 135/90 04/28/2024 10:58 AM CDT Pulse 76 04/28/2024 8:43 AM CDT Temperature 36.6 ??C (97.8 ??F) 04/28/2024 8:43 AM CD T Respiratory Rate 16 04/28/2024 8:43 AM CDT Oxygen Saturation 95% 04/28/2024 10:58 AM CDT Inhaled Oxygen Concentration - - Weight 99.8 kg (220 lb) 04/28/2024 8:43 AM CDT Height 182.9 cm (6') 04/28/2024 8:43 AM CDT Body Mass Index 29.84 04/28/2024 8:43 AM CDT documented in this encounter Functional [...] this encounter Discharge Instructions * Discharge Instructions* Leigh Moses DO - 04/28/2024 11:00 AM CDT You presented to [facility] ER following your g-tube dislodgement. We replaced the tube and confirmed placement with x-ray. In the future if your tube comes out, it is important to re-insert it to maintain the tract. If your tube falls out again and you are unable to replace it, please present to the ER as soon as possible for replacement. Please follow up with your primary care provider for further management. documented in this encounter Medications at Time [...] as of this encounter Progress Notes * Rajni Ragsdale LCSW - 04/28/2024 11:19 AM CDT Facility Transfer Note Level of Care: senior living care Facility Name: [facility] RN Call Report to [phone] Transportation [facility] [phone] Certificate of Medical Necessity rationale:completed Date/time of transfer: 04/28/2024 11:21 AM Comments: ems eta is noon Name/Phone number: Rajni Ragsdale LCSW documented in this encounter ED Notes * Kelvin Rincon RN - 04/28/2024 12:06 PM CDT Report given to MMT staff. Patient placed on stretcher. Patient left with respiratory rate regular and nonlabored, NAD. * Kim Childers RN - 04/28/2024 12:02 PM CDT Family (Carol Vazquez) updated by this RN. All questions answered at this time. * Jeffrey Rivera MD - 04/28/2024 9:49 AM CDT ED Attending Note Patient seen in conjunction with Dr. Moses. History: Yaya Vazquez Jr. is a 63 year old male with pmhx including dysphagia, is presenting to the ED BIBEMS c/o dislodged G-tube. The patient is coming from [facility] for unintentional removal of G-tube. Per the chart on 04/21/24 the patient was seen at [facility] for similar presentation. Patient is nonverbal at baseline, unable to get further hx. Past Medical History: Diagnosis Date Anemia 01/2018 Asthma ([facility]) Chest congestion 08/05/2020 Confusional arousals 08/05/2020 Controlled type 2 diabetes mellitus without complication, without long-term current use of insulin ([facility]) 09/28/2011 Coronary artery disease involving [place] heart with angina pectoris ([facility]) 09/04/2018 Cough syncope 2018 Daytime sleepiness 08/05/2020 Essential hypertension 01/23/2018 HTN (hypertension) Hyperlipidemia 08/05/2020 Inadequate sleep hygiene 08/05/2020 Morbid obesity with BMI of 40.0-44.9, adult ([facility]) 08/05/2020 Nocturia 08/05/2020 Obesity (BMI 30-39.9) 04/24/2012 Other chest pain 09/04/2018 S/P CABG x 3 01/24/2018 Snoring 08/05/2020 Stroke ([facility]) Superficial postoperative wound infection 02/23/2018 sternum Type 2 diabetes mellitus with retinopathy without macular edema ([facility]) Wears glasses 08/05/2020 Weight gain 08/05/2020 [...] (e.g., BA, AB, BS) Occupational History 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 Appearance: He is well-developed. HENT: Head: Normocephalic and atraumatic. Eyes: Extraocular Movements: Extraocular movements intact. Conjunctiva/sclera: Conjunctivae normal. Cardiovascular: Rate and Rhythm: Normal rate and regular rhythm. Comments: Pluses are symmetric and intact. Pulmonary: Effort: Pulmonary effort is normal. Breath sounds: Normal breath sounds. Abdominal: General: Bowel sounds are normal. There is no distension. Palpations: Abdomen is soft. Comments: Site of G-tube is LUQ. There is no erythema or ttp around site. Musculoskeletal: General: No deformity. Skin: General: Skin is warm and dry. Neurological: Comments: Patient non verbal at baseline. Medical Decision Makin. The patient is a 63 y.o male presenting for dislodged G-tube. DDX: Dislodge G-tube. Plan: Imaging, and g-tube replacement Results: Labs Reviewed - No data to display XR ABDOMEN KUB PORTABLE Final Result PROCEDURE: XR ABDOMEN KUB PORTABLE, DATE/TIME OF EXAM: 04/28/2024 10:56 AM, LOCATION [facility] INDICATION: R68.89: Complaint associated with gastric tube [...] is seen. Partially visualized median sternotomy wires. IMPRESSION: Left upper quadrant gastrostomy tube with contrast opacification of the gastric lumen. No evidence of extraluminal contrast. Report dictated by Ted Weber M.D. (vice president quality) 04/28/2024 10:57 AM IAv MD have personally reviewed and interpreted this examination/study. > Interpreting Provider: Av Ariza MD on 04/28/2024 11:10 AM ED course: The patient's Oxygen Saturation Monitor was interpreted by me. The reading was 97%. The patient wason RA at the time of the reading. This is interpreted as normal. 9:38 AM: G-tube has been replaced by team. Radiology has be contacted to confirm contrast used for g-tube placement imaging. 10:58 AM: I have reviewed his diagnostic findings and he has had an opportunity to ask me any questions he has about care, diagnosis and discharge plan. Patient is comfortable with the discharge plan. He will follow up as directed and will return to the ER if his condition worsens or he develops other urgent concerns. Consult No Procedure done at this time Yes Ultrasound done at this time Yes Orders Placed This Encounter XR ABDOMEN KUB PORTABLE iopamidol (Isovue 300) 61 % contrast 30 mL Medications iopamidol (Isovue 300) 61 % contrast 30 mL (30 mL Oral $ Given - Contrast 04/28/24 1044) Clinical Impression: 1. Complaint associated with gastric tube (HCC) 2. Left upper quadrant abdominal pain 3. Encounter for feeding tube placement Disposition: Discharge- Facility By signing my name below, I, Pricila Gunter, attest that this documentation has been prepared under the direction and in the presence of Dr. Rivera. Signed: Sunny Lancaster. I, Dr. Rivera, personally performed the services described in this documentation. All medical record entries made by the scribe were at my direction and in my presence. I have reviewed the chart and agree that the record reflects my personal performance and is accurate and complete. * Saima Nielsen Graduate Nurse - 04/28/2024 8:45 AM CDT [facility]. Patient denies pain, aox2-3.PMHx dysphagia. * Moisés Florian RN - 04/28/2024 8:37 AM CDT Bed: C03 Expected date: Expected time: Means of arrival: Comments: Denise 111- 63 M G-tube removal documented in this encounter Plan of Treatment Upcoming Encounters Date Type Department Care Team (Late st Contact Info) Description 10/20/2024 8:00 AM INTERNET SOURCER Office Visit [facility] - Family Medicine [address] [facility] [address] [place] [phone] Kiana Cole MD [address] [place], [place] [phone] 11/28/2024 9:00 AM INTERNET SOURCER Office Visit [facility] - Neurology [address] [facility] [place] [address] Aline Finch MD [address] [facility] [place] [address] 02/10/2025 10:00 AM CDT Office Visit [facility] - Cardiology [address] [address] Curly Lay MD [address] [phone] documented as of this encounter Procedures Procedure Name Priority Date/Time Associated Diagnosis Comments XR ABDOMEN KUB PORTABLE STAT 04/28/2024 10:56 AM CDT Complaint associated with gastric tube (HCC) documented in this encounter Results * XR ABDOMEN KUB PORTABLE (04/28/2024 10:56 AM CDT) Anatomical Region Laterality Modality Abdomen Radiographic Love ging 04/28/2024 10:5 2 AM CDT Impressions 04/28/2024 11:10 AM CDT IMPRESSION: Left upper quadrant gastrostomy tube with contrast opacification of the gastric lumen. No evidence of extraluminal contrast. Report dictated by Ted Weber M.D. (vice president quality) 04/28/2024 10:57 AM IAv MD have personally reviewed and interpreted this examination/study. > Interpreting Provider: Av Ariza MD on 04/28/2024 11:10 AM Narrative 04/28/2024 11:10 AM CDT PROCEDURE: ??XR ABDOMEN KUB PORTABLE, DATE/TIME OF EXAM: ??04/28/2024 10:56 AM, LOCATION ??[facility] INDICATION: R68.89: Complaint associated with gastric tube [...] DATE/TIME OF EXAM: 04/28/2024 10:56 AM, LOCATION [facility] INDICATION: R68.89: Complaint associated with gastric tube [...] contrast. Report dictated by Ted Weber M.D. (vice president quality) 04/28/2024 10:57 AM I, Av Ariza MD have personally reviewed and interpreted this examination/study. > Interpreting Provider: Av Ariza MD on 04/28/2024 11:10 AM Jeffrey Rivera MD DIAGNOSTIC IMAGING O RDERABLES documented in this encounter Visit Diagnoses Diagnosis Complaint associated with gastric tube (HCC)- Primary Left upper quadrant abdominal pain Encounter for feeding tube placement Unspecified conditions influencing health status documented in this encounter Administered Medications Inactive Administered Medications - up to 3 most recent administrations Medication Order MAR Action Action Date Dose Rate Site iopamidol (Isovue 300) 61 % contrast 30 mL 30 mL, Oral, CONTRAST ONCE, Starting on Sun04/28/24 at 0945, Until Sun04/28/24 at 1313, 30 mL of iopamidol 61% (Isovue 300) $ Given - Contrast 04/28/2024 10:44 AM CDT 30 mL G Tube documented in this encounter Active and Recently Administered Medications Times are shown in CDT. Scheduled Medication Order 04/26/2024 04/27/2024 04/28/2024 iopamidol (Isovue 300) 61 % contrast 30 mL 30 mL, Oral, CONTRAST ONCE, Starting on Sun04/28/24 at 0945, Until Sun04/28/24 at 1313, 30 mL of iopamidol 61% (Isovue 300) 1044 ($ Given - Cont rast - Provider: Saima Nielsen, Graduate Nurse) documented in this encounter Care Teams Bond Broker Relationship Specialty Start Date End Date None, Physician [address] [place] [address] PCP - General 02/15/24 05/16/24 Sylvain Daniels MD [address] [place] [address] Family Medicine 02/15/24 documented as of this encounter
--- OUTSIDE RECORDS SUMMARY | 2024-10-11 19:41 | XMS_ITS | Encounter Summary ---
Author Organization [facility] Health Address [address] [facility] [place] [address] Care Team Providers Care Senior Vice President Name Role Phone Sylvain Daniels MD Unavailable [phone] Kiana Cole MD Primary Care Provider Encounter Details Date Type Department Care Team (Latest Contact Info) Description 09/17/2024 Travel Social History Tobacco Use Types Packs/Day [...] Recorded Patient Health Questionnaire-2 Score 0 09/17/2024 [facility] - Occupational [...] No 05/26/2024 documented as of this encounter Plan of Treatment Upcoming Encounters Date Type Department Care Team (Late st Contact Info) Description 10/20/2024 8:00 AM NP Office Visit [facility] Medical Group - Family Medicine [address] [facility] [address] [place] [phone] Kiana Cole MD [address] [place] [address] 11/28/2024 9:00 AM NP Office Visit [facility] - Neurology [address] [facility] [place] [phone] Aline Finch MD [address] [facility] [place] [address] 02/10/2025 10:00 AM CDT Office Visit [facility] - Cardiology [address] [place] [address] [place] [phone] [place] [phone] Curly Lay MD [address] [address] [place] [address] documented as of this encounter Visit Diagnoses Not on filedocumented in this encounter Care Teams Senior Vice President Relationship Specialty Start Date End Date Kiana Cole MD [address] [place], [place] [phone] PCP - General Internal Medicine 09/16/24 Sylvain Daniels MD Family Medicine 02/15/24 documented as of this encounter
--- OUTSIDE RECORDS SUMMARY | 2024-10-11 19:41 | XMS_ITS | Encounter Summary ---
Author Organization [facility] Address [address] [facility] [place] [address] Care Team Providers Care Thread Dresser Name Role Phone None, Physician Primary Care Provider Sylvain Hopper MD Unavailable [phone] Reason for Visit * Auth/Cert (Routine) Specialty Diagnoses / Procedures Referred By Jenna t Referred To Contact Procedures NV EGD FLEX TRANSORAL W PLCMT GTUBE PERC ESOPHAGOGASTRODUODENOSCOPY (EGD) WITH PEG PLACEMENT Referral ID Status Reason Start Date Expiration Date Visits Re quested Visits Authorized [id number] 1 1 Encounter Details Date Type Department Care Team (Latest Contact Info) Description 03/17/2024 12:57 PM CDT - 03/17/2024 2:35 PM CDT Hospital Encounter [facility] - Endoscopy Services [address] [place] [address] Alex Lopez MD [address] [place] [id number] Surgery General Discharge Disposition: Rehab:Inpatient Social History Tobacco Use Types Packs/Day Years Used Date Smoking Tobacco: Never Assessed AUDIT-C Answer Date Recorded Q1: How often [...] place to sleep or slept in a longterm (including now)? No 01/24/2024 Education Answer Date [...] by Enteral Tube route once daily 02/16/2024 senna-docusate (Senokot-S) 8.6-50 MG tablet 2 (two) [...] Units subcutaneously every 12 hours 02/15/2024 08/29/2024 modafinil (Provigil) 200 MG tablet 1 (one) [...] 02/16/2024 08/29/2024 documented as of this encounter H&P Notes * Alex Lopez MD - 03/17/2024 1:10 PM CDT ENDOSCOPY PRE-PROCEDURE MEDICAL HISTORY & PHYSICAL NOTE 03/17/2024 Yayaana laura Prietorhina Cummins. 63 year old male There were no vitals taken for this visit. History: Past Medical History: Diagnosis Date HTN (hypertension) Stroke (HCC) 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) Past Surgical History: Procedure Laterality Date ANGIOPLASTY Allergies Allergen Reactions Lisinopril Other Hives Pcn [Penicillins] Other Hives No medications prior to admission. No current facility-administered medications for this encounter. Physcial Exam: General appearance: alert, cooperative, no distress Heart: regular rhythm, normal S1 and S2, without murmurs, rubs or gallops Lungs: breath sounds normal and symmetric; no rales or wheezes Abdomen: soft without mass, non-tender, with normal bowel sounds Extremities: no clubbing, cyanosis or edema Sedation Plan: Anesthesia administered per Anesthesia Department Indication(s) for Procedure: Dysphagia Procedure Planned: PEG Alex Lopez MD [phone] (office) [phone] (cell) documented in this encounter Plan of Treatment Upcoming Encounters Date Type Department Care Team (Late st Contact Info) Description 10/20/2024 8:00 AM DEAN FOR STUDENT AFFAIRS Office Visit [facility] Group - Family Medicine [address] [facility] [address] [place] [phone] Kiana Cole MD [address] [place], [place] [id number] 11/28/2024 9:00 AM DEAN FOR STUDENT AFFAIRS Office Visit [facility] - Neurology [address] [facility], [place] [phone] Aline Finch MD [address] [facility] [place] [address] 02/10/2025 10:00 AM CDT Office Visit [facility] - Cardiology [address] [place] [phone] Curly Lay MD [address] [place] [address] documented as of this encounter Procedures Procedure Name Priority Date/Time Associated Diagnosis Comments EGD WITH PEG PLACEMENT Routine 03/17/2024 1:08 PM CDT NV EGD FLEX TRANSORAL W PLCMT GTUBE PERC documented in this encounter Results * EGD WITH PEG PLACEMENT (03/17/2024 1:08 PM CDT) Report Endoscopy POC _ Patient Name: Yaya Vazquez ? Procedure Date: 03/17/2024 1:08 PM ? Date of : 1960 ? Admit Type: Inpatient Age: 63 ? Gender: Male Ethnicity: Not or ? Race: Black or Attending MD: Alex Lopez MD, [id number] _ Procedure: ? Upper GI endoscopy Indications: ? Place PEG because patient is unable to eat, Place PEG ? due to dysphagia, Place PEG because patient is unable ? to eat due to stroke (CVA) Providers: ? Alex Lopez MD (Doctor), Leilani Zhao RN, ? Beckie Angel RN Medicines: ? Monitored [...] Procedure Code(s): ? --- Professional --- ? 01657, Esophagogastroduoden oscopy, flexible, transoral; with directed ? placement of percutaneous gastrostomy tube ? --- Technical --- ? 72309, Esophagogastroduoden oscopy, flexible, transoral; with directed ? placement of percutaneous gastrostomy tube Diagnosis Code(s): ? --- Professional --- ? R63.39, Other feeding difficulties ? R13.10, Dysphagia, unspecified ? Z43.1, Encounter for attention to gastrostomy ? --- Technical --- ? R63.39, Other feeding difficulties ? R13.10, Dysphagia, unspecified ? Z43.1, Encounter for attention to gastrostomy CPT copyright 2020 [employer]. All rights reserved. The codes documented in this report are preliminary and upon land classifier review may be revised to meet current compliance requirements. Alex Lopez MD 03/17/2024 1:41:29 PM This report has been signed electronically. Number of Addenda: 0 Note Initiated On: 03/17/2024 1:08 PM [facility] ENDOSCOPY 03/17/2024 1:0 8 PM CDT Alex Lopez MD GI PROCEDURE ORDERAB [facility] ENDOSCOPY documented in this encounter Visit Diagnoses Not on filedocumented in this encounter Care Teams Thread Dresser Relationship Specialty Start Date End Date None, Physician [address] [place] [address] PCP - General 02/15/24 05/16/24 Sylvain Daniels MD [address] [place] [id number] Family Medicine 02/15/24 documented as of this encounter
--- OUTSIDE RECORDS SUMMARY | 2024-10-11 19:41 | XMS_ITS | Encounter Summary ---
Author Organization [facility] Address [address] [facility] [place] [address] Care Team Providers Care Manager Etl Name Role Phone Sylvain Daniels MD Unavailable [phone] Sean Kyle MD Primary Care Provider [phone] Encounter Details Date Type Department Care Team (Latest Contact Info) Description 08/29/2024 Travel Social History Tobacco Use Types Packs/Day [...] Date Recorded Patient Health Questionnaire-2 Score 0 06/04/2024 [facility] [place] of Occupat ional Health - Occupational Stress [...] place to sleep or slept in a nursing home (including now)? No 05/26/2024 Education Answer [...] st Contact Info) Description 10/20/2024 8:00 AM MANAGER Office Visit [facility] Medical Group - Family Medicine [address] [facility], [facility] [address] [place] [phone] Kiana Cole MD [address] [place] [address] 11/28/2024 9:00 AM MANAGER Office Visit [facility]ician Group - Neurology [address] [facility] [place] [phone] Aline Finch MD [address] [facility] [place] [address] 02/10/2025 10:00 AM CDT Office Visit [facility] Group - Cardiology [address] [facility], [facility] [address] [place] [phone] Curly Lay MD [address] [facility] [address] [place] [address] documented as of this encounter Visit Diagnoses Not on filedocumented in this encounter Care Teams Manager Etl Relationship Specialty Start Date End Date Sean Kyle MD [address] [place] [address] PCP - General Internal Medicine 08/05/24 09/15/24 Sylvain Daniels MD Family Medicine 02/15/24 documented as of this encounter
--- OUTSIDE RECORDS SUMMARY | 2024-10-11 19:41 | XMS_ITS | Encounter Summary ---
Author Organization [facility] Address [address] [place] [address] Care Team Providers Care Printing Press Operator Apprentice Name Role Phone Sylvain Daniels MD Unavailable [phone] Kiana Cole MD Primary Care Provider Encounter Details Date Type Department Care Team (Latest Contact Info) Description 06/23/2024 Travel Social History Tobacco Use Types Packs/Day [...] Recorded Patient Health Questionnaire-2 Score 0 06/04/2024 [facility] of Occupat ional Health - Occupational [...] slept in a longterm (including now)? No 05/26/2024 Education Answer Date [...] st Contact Info) Description 10/20/2024 8:00 AM CAR OILER Office Visit [facility] Medical Group - Family Medicine [address] [facility], [facility] [address] [place] [phone] Kiana Cole MD [address] [place] [address] 11/28/2024 9:00 AM CAR OILER Office Visit [facility]ician Group - Neurology [address] [facility], [place] [phone] Aline Finch MD [address] [facility] [place] [address] 02/10/2025 10:00 AM CDT Office Visit [facility]ician Group - Cardiology [address] [facility] [place] [phone] Curly Lay MD [address] [place] [address] documented as of this encounter Visit Diagnoses Not on filedocumented in this encounter Care Teams Printing Press Operator Apprentice Relationship Specialty Start Date End Date Kiana Cole MD [address] [place], [place] [address] PCP - General Internal Medicine 05/22/24 08/04/24 Sylvain Daniels MD Family Medicine 02/15/24 documented as of this encounter
--- OUTSIDE RECORDS SUMMARY | 2024-10-11 19:41 | XMS_ITS | Encounter Summary ---
Author Organization [facility] Address [address] [facility] [place] [address] Care Team Providers Care Senior International Tax Manager Name Role Phone None, Physician Primary Care Provider Sylvain Hopper MD Unavailable [phone] Reason for Visit * Auth/Cert (Routine) Specialty Diagnoses / Procedures Referred By Jenna t Referred To Contact Procedures [place] EGD FLEX TRANSORAL W PLCMT GTUBE PERC ESOPHAGOGASTRODUODENOSCOPY (EGD) WITH PEG PLACEMENT Referral ID Status Reason Start Date Expiration Date Visits Re quested Visits Authorized [id number] 1 1 Encounter Details Date Type Department Care Team (Latest Contact Info) Description 03/17/2024 Surgery [facility] - Endoscopy Services [address] [place] [address] Alex Lopez MD [address] [place] [id number] ESOPHAGOGASTRODUODENOSCOPY (EGD) WITH PEG PLACEMENT Surgery Details Date/Time Status Location OR Service Patient Class Case Class Case Type Trauma Case? 03/17/2024 Posted [facility] ENDO Gastroenterology Subramanian rgery Day Care Elective > 5 days Panel 1 Procedure LRB Anes Op Region Wound Class Comments ESOPHAGOGASTRODUODENOSCOPY ( EGD) WITH PEG PLACEMENT N/A MAC Clean Contaminated Surgeon Surgeon Role Service Panel Alex Lopez MD Primary Gastroenterology 1 documented in this encounter Social History Tobacco Use Types Packs/Day Years [...] place to sleep or slept in a long-term (including now)? No 01/24/2024 Education Answer Date [...] PRE-PROCEDURE MEDICAL HISTORY & PHYSICAL NOTE 03/17/2024 Yaya Vazquez Jr. 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 [place] [address] 02/10/2025 10:00 AM CDT Office Visit [facility] Physician Group - Cardiology [address] [facility] [place] [address] Curly Lay MD [address] [address] documented as of this encounter Procedures Procedure Name Priority Date/Time Associated Diagnosis Comments EGD WITH PEG PLACEMENT Routine 03/17/2024 1:08 PM CDT [place] EGD FLEX TRANSORAL W PLCMT GTUBE PERC documented in this encounter Results * EGD WITH PEG PLACEMENT (03/17/2024 1:08 PM CDT) Report Endoscopy POC _ Patient Name: Yaya Vazquez ? Procedure Date: 03/17/2024 1:08 PM ? Date of : 1960 ? Admit Type: Inpatient Age: 63 ? Gender: Male Ethnicity: Not or ? Race: Black or Attending MD: Alex Lopez MD, [id number] _ Procedure: ? Upper GI endoscopy Indications: [...] Procedure Code(s): ? --- Professional --- ? 34873, Esophagogastroduoden oscopy, flexible, transoral; with directed ? placement of percutaneous gastrostomy tube ? --- Technical --- ? 63390, Esophagogastroduoden oscopy, flexible, transoral; with directed ? placement of percutaneous gastrostomy tube Diagnosis Code(s): ? --- Professional --- ? R63.39, Other feeding difficulties ? R13.10, Dysphagia, unspecified ? Z43.1, Encounter for attention to gastrostomy ? --- Technical --- ? R63.39, Other feeding difficulties ? R13.10, Dysphagia, unspecified ? Z43.1, Encounter for attention to gastrostomy CPT copyright 2020 [employer]. All rights reserved. The codes documented in this report are preliminary and upon director data architecture review may be revised to meet current compliance requirements. Alex Lopez MD 03/17/2024 1:41:29 PM This report has been signed electronically. Number of Addenda: 0 Note Initiated On: 03/17/2024 1:08 PM [facility] ENDOSCOPY 03/17/2024 1:08 PM CDT Alex Lopez MD GI PROCEDURE ORDERAB LES [facility] ENDOSCOPY documented in this encounter Visit Diagnoses Not on filedocumented in this encounter Care Teams Senior International Tax Manager Relationship Specialty Start Date End Date None, Physician [address] [place] [address] PCP - General 02/15/24 05/16/24 Sylvain Daniels MD [address] [place], [place] [address] Family Medicine 02/15/24 documented as of this encounter
--- OUTSIDE RECORDS SUMMARY | 2024-10-11 19:41 | XMS_ITS | Encounter Summary ---
Author Organization [facility] Address [address] [facility] [place] [address] Care Team Providers Care Asset Manager Name Role Phone Sylvain Daniels MD Unavailable [phone] Kiana Cole MD Primary Care Provider Encounter Details Date Type Department Care Team (Latest Contact Info) Description 07/10/2024 Travel Social History Tobacco Use Types Packs/Day [...] Recorded Patient Health Questionnaire-2 Score 0 06/04/2024 [facility] of Occupat ional Health - Occupational Stress [...] st Contact Info) Description 10/20/2024 8:00 AM CORONER/MEDICAL EXAMINER Office Visit [facility] Medical Group - Family Medicine [address] [facility], [facility] [address] [place] [phone] Kiana Cole MD [address] [place] [address] 11/28/2024 9:00 AM CORONER/MEDICAL EXAMINER Office Visit [facility]ician Group - Neurology [address] [facility] [place] [phone] Aline Finch MD [address] [facility] [place] [address] 02/10/2025 10:00 AM CDT Office Visit [facility]ician Group - Cardiology [address] [facility], [address] [place] [address] Curly Lay MD [address] [place] [address] documented as of this encounter Visit Diagnoses Not on filedocumented in this encounter Care Teams Asset Manager Relationship Specialty Start Date End Date Kiana Cole MD [address] [place], [place] [address] PCP - General Internal Medicine 05/22/24 08/04/24 Sylvain Daniels MD Family Medicine 02/15/24 documented as of this encounter
--- OUTSIDE RECORDS SUMMARY | 2024-10-11 19:41 | XMS_ITS | Encounter Summary ---
Author Organization [facility] Health Address [address] [place] [address] Care Team Providers Care Certified [employer] Administrator Name Role Phone Sylvain Daniels MD Unavailable [phone] Kiana Cole MD Primary Care Provider Reason for Referral * Transfer of Care (Routine) - Pending Review Specialty Diagnoses / Procedures Referred By Contmegan t Referred To Contact Procedures Follow up with Primary Care Provider (PCP) Follow up with Primary Care Provider (PCP) Perfecto Hatch APRN-CNP [address] [facility] [place] [address] Referral ID Status Reason Start Date Expiration Date V isits Requested Visits Authorized [id number] Pending Review 05/27/2024 05/27/2025 1 1 * Consultation (Routine) - Pending Review Specialty Diagnoses / Procedures Referred By Jenna saleem Referred To Contact Diagnoses Syncope, unspecified syncope type Perfecto Hatch APRN-CNP [address] [place] [address] Referral ID Status Reason Start Date Expiration Date Visits Requested Visits Authorized [id number] Pending Review Specialty Services Required 06/04/2024 06/04/2025 1 1 Reason for Visit * Auth/Cert (Routine) Specialty Diagnoses / Procedures Referred By Jenna saleem Referred To Contact Diagnoses Stroke Referral ID Status Reason Start Date Expiration Date Visits Re quested Visits Authorized [id number] 1 1 Encounter Details Date Type Department Care Team (Latest Contact Info) Description 05/25/2024 7:28 PM CDT - 06/04/2024 7:17 PM CDT Hospital Encounter [facility] 5N ACUTE [address] [place] [address] Jason Coppola MD [address] [facility] [place] [address] Ruslan Garza MD [address] [facility] INTERNAL MEDICINE [place], [place] [id number] Farhat Enamorado MD [address] [place], [place] [id number] Neurology Discharge Disposition: Rehab:Inpatient Social History Tobacco Use [...] Recorded Patient Health Questionnaire-2 Score 0 06/04/2024 [facility] - Occupational Stress [...] place to sleep or slept in a long term (including now)? No 05/26/2024 Education Answer Date [...] Sign Reading Time Taken Comments Blood Pressure 121/85 06/04/2024 4:44 PM CDT Pulse 81 06/04/2024 4:44 PM CDT Temperature 36.8 ??C (98.3 ??F) 06/04/2024 4:44 PM CD T Respiratory Rate 14 06/04/2024 8:16 AM CDT Oxygen Saturation 99% 06/04/2024 4:44 PM CDT Inhaled Oxygen Concentration - - Weight 128.8 kg (284 lb) 06/03/2024 12:17 PM CDT Height 193 cm (6' 4 ) 06/03/2024 12:17 PM CDT Body Mass Index 34.57 06/03/2024 12:17 PM CDT documented in this encounter Functional [...] No 05/26/2024 documented as of this encounter Discharge Summaries * Iban Martin RN - 06/04/2024 7:16 PM CDT Patient discharged at this time. Discharge packet given toEMS; education provided; all questions answered. IV and tele have been removed. Patient left with all belongings.Patiently safely escorted out of hospital on stretcher by EMS * Perfecto Hatch APRN-CABLE FERRYBOAT OPERATOR - 06/04/2024 3:23 PM CDT Images from the original note were not included. Physician Discharge Summary Patient ID: Yaya Vazquez Jr. [id number] 63 year old 1960 Admit date: 05/25/2024 Discharge date and time: 06/04/2024 Admitting Physician: Jason Coppola MD Discharge Physician: Farhat Enamorado MD Present on Admission: Controlled type 2 diabetes mellitus without complication, without long-term current use of insulin (HCC) Essential hypertension Altered mental status, unspecified altered mental status type Cerebrovascular accident (HCC) Cerebrovascular accident (CVA), unspecified mechanism (HCC) H/O: CVA (cerebrovascular accident) Seizure-like activity (HCC) Basilar artery stenosis Discharge Diagnoses: Syncope Admission Condition: fair Discharged Condition: fair Indication for Admission: syncopal episodes Hospital Course: 63 yom with repeated episodes of syncope lasting around 30 seconds. Was admitted to vascular neurology service where cEEG was negative for electrographic seizure activity/discharges,MRI brain wo contrast negative for acute infarct. Was placed on bordley list pending rehab placement with Cardiology, endovascular/interventional neurology, and general neurology outpatient follow up. On 05/28 in the evening, patient had another syncopal event similar to prior events. Code stroke called, CTH/CTA negative. Patient was transferred back to neuro floor. Cardiac work up completed. TTE repeated and no findings to explain episodes. Patient will DC today to rehab with a 30 day shelter monitor. He is to follow up with cardiology, and neurology. Consults: Cardiology, PT/OT/ST, CM/SW, Dietitian Significant Diagnostic Studies: MRI: No acute intracranial abnormality including acute infarct, hemorrhage, or midline shift. TTE: * Left ventricle is normal in size, with normal systolic function, EF 66%, wall motion is abnormal (see diagram), and diastolic function is consistent with grade I diastolic dysfunction and normal left atrial filling pressure. * There is mild concentric remodeling of the left ventricle. * Right ventricle is normal in size with reduced systolic function. * Agitated saline contrast study at rest and with Valsalva is negative for a shunt. * No hemodynamically significant valve disease. 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 Medications at discharge for secondary stroke prophylaxis: Medication List CHANGE how you take these medications heparin 5000 UNIT/ML injection Inject 1 mL subcutaneously every 8 hours What changed: when to take this CONTINUE taking these medications acetaminophen 325 MG tablet Commonly known as: Tylenol albuterol (2.5 MG/3ML) 0.083% nebulizer solution Commonly known as: Proventil;Ventolin Inhale 2.5 (two and one-half) mg by mouth every 4 hours as needed for Shortness of Breath or Wheezing albuterol-ipratropium 0.5-2.5 (3) MG/3ML nebulizer solution Commonly known as: Duo-Neb Inhale 3 mL by mouth every 6 hours Reasons: Asthma amLODIPine 10 MG tablet Commonly known as: Norvasc 1 (one) tablet by Enteral Tube route once daily aspirin 81 MG chew tablet Commonly known as: Aspirin 1 (one) tablet by Enteral Tube route once daily atorvastatin 40 MG tablet Commonly known as: Lipitor 1 (one) tablet by Enteral Tube route at bedtime busPIRone 5 MG tablet Commonly known as: Buspar clopidogrel 75 MG tablet Commonly known as: plaVIX 1 (one) tablet by Enteral Tube route once daily famotidine 20 MG tablet Commonly known as: Pepcid 1 (one) tablet by Enteral Tube route 2 times daily folic acid 1 MG tablet Commonly known as: Folvite 1 (one) tablet by Enteral Tube route once daily hydrALAZINE 10 MG tablet Commonly known as: Apresoline * insulin lispro 100 UNIT/ML pen Commonly known as: HumaLOG;ADMelog * insulin lispro 100 UNIT/ML vial Commonly known as: HumaLOG insulin NPH pen Inject 15 (fifteen) Units subcutaneously every 12 hours insulin regular human 100 UNIT/ML injection Commonly known as: HumuLIN R; NovoLIN R loratadine 10 MG tablet Commonly known as: Claritin multiple vitamins with minerals tablet 1 (one) tablet by Enteral Tube route once daily QUEtiapine 25 MG tablet Commonly known as: SEROquel senna-docusate 8.6-50 MG tablet Commonly known as: Senokot-S 2 (two) tablets by Enteral Tube route 2 times daily thiamine 100 MG tablet Commonly known as: Vitamin B-1 1 (one) tablet by Enteral Tube route once daily * This list has 2 medication(s) that are the same as other medications prescribed for you. Read thedirections carefully, and ask your doctor or other care provider to review them with you. STOP taking these medications atropine 1 % ophthalmic solution insulin aspart pen Commonly known as: NovoLOG modafinil 200 MG tablet Commonly known as: Provigil sodium chloride 3 % nebulizer solution Thera tablet Where to Get Your Medications Information about where to get these medications is not yet available Ask your nurse or doctor about these medications heparin 5000 UNIT/ML injection Follow-up Information Kiana Cole MD . Specialty: Internal Medicine [facility] [address] Discharge Instructions No neurologic cause was found that would explain patients episodes of loss of consciousness. It is recommended that you follow up with your field marketing manager to have a cardiac workup for syncope. You have been scheduled with Dr. Enamorado for follow up in regards to your hospital stay and your aneurysm. If the time and/or day of this appointment doesn't work for you, or you would like to do a virtual visit (by phone or video), please call [phone] to make changes. Signed: WILLIE Michel 06/04/2024 documented in this encounter Discharge Instructions * Discharge Instructions* Perfecto Hatch APRN-CNP - 05/27/2024 12:32 PM CDT No neurologic cause was found that would explain patients episodes of loss of consciousness. It is recommended that you follow up with your field marketing manager to have a cardiac workup for syncope. You have been scheduled with Dr. Enamorado for follow up in regards to your hospital stay and your aneurysm. If the time and/or day of this appointment doesn't work for you, or you would like to do a virtual visit (by phone or video), please call [phone] to make changes. Patient to wear a shelter monitor for 30 days. Will be sent to home/rehab to be applied documented in this encounter Medications at Time [...] Enteral Tube route at bedtime 02/15/2024 09/17/2024 busPIRone (Buspar) 5 MG tablet 1 (one) [...] 5000 UNIT/ML injection Inject 1 mL subcutaneously every 8 hours 06/04/2024 08/12/2024 hydrALAZINE (Apresoline) 10 MG tablet 1 (one) tablet by Per G Tube route every 8 hours 03/12/2024 024 insulin lispro (HumaLOG) 100 UNIT/ML vial Inject 0 (zero) Units to 12 (twelve) Units subcutaneously every 6 hours 03/12/2024 08/29/2024 insulin lispro (HumaLOG;ADMelog) 100 UNIT/ML pen Sliding scale 08/29/2024 insulin NPH pen Inject 15 (fifteen) Units subcutaneously every 12 hours 02/15/2024 08/29/2024 insulin regular human (HumuLIN R; NovoLIN R) 100 UNIT/ML injection 13 (thirteen) Units once daily 08/29/2024 loratadine (Claritin) 10 MG tablet 1 (one) tablet by Per G Tube route once daily 04/11/2024 09/17/2024 thiamine (Vitamin B-1) 100 MG tablet 1 (one) tablet by Enteral Tube route once daily 02/16/2024 08/29/2024 documented as of this encounter Progress Notes * Iban Martin RN - 06/04/2024 4:03 PM CDT [facility] given to Chayo SHARMA at 1555. * Iban Martin RN - 06/04/2024 2:39 PM CDT Problem: General Goal: LTG - Patient will 06/04/2024 1439 by Iban Martin RN Outcome: Adequate for Discharge 06/04/2024 1439 by Iban Martin RN Outcome: Adequate for Discharge Goal: STG - Patient will 06/04/2024 1439 by Iban Martin RN Outcome: Adequate for Discharge 06/04/2024 1439 by Iban Martin RN Outcome: Adequate for Discharge Goal: STG - Patient will 06/04/2024 1439 by Iban Martin RN Outcome: Adequate for Discharge 06/04/2024 1439 by Iban Martin RN Outcome: Adequate for Discharge Goal: STG - Patient will 06/04/2024 1439 by Iban Martin RN Outcome: Adequate for Discharge 06/04/2024 1439 by Iban Martin RN Outcome: Adequate for Discharge Problem: Balance Goal: LTG - Patient will demonstrate Intervention to enhance balance for safe completion of daily activities 06/04/2024 143 by Iban Martin RN Outcome: Adequate for Discharge 06/04/2024 143 by Iban Maritn RN Outcome: Adequate for Discharge Goal: LTG - Patient will maintain balance 06/04/2024 143 by Iban Martin RN Outcome: Adequate for Discharge 06/04/2024 143 by Iban Martin RN Outcome: Adequate for Discharge Goal: LTG - Patient will maintain balance to allow for safe mobility 06/04/2024 143 by Iban Martin RN Outcome: Adequate for Discharge 06/04/20241438 by Iban Martin RN Outcome: Adequate for Discharge Goal: LTG - Patient will maintain standing and sitting balance to allow for completion of daily activities 06/04/2024 143 by Iban Martin RN Outcome: Adequate for Discharge 06/04/20241438 by Iban Martin RN Outcome: Adequate for Discharge Goal: LTG - Patient will tolerate standing 06/04/2024 143 by Iban Martin RN Outcome: Adequate for Discharge 06/04/20241438 by Iban Martin RN Outcome: Adequate for Discharge Goal: STG - Maintains dynamic standing balance with upper extremity support. 06/04/2024 143 by Iban Martin RN Outcome: Adequate for Discharge 06/04/2024 143 by Iban Martin RN Outcome: Adequate for Discharge Goal: STG - Maintains dynamic standing balance without upper extremity support. 06/04/2024 143 by Iban Martin RN Outcome: Adequate for Discharge 06/04/2024 143 by Iban Martin RN Outcome: Adequate for Discharge Goal: STG - Maintains static standing balance with upper extremity support. 06/04/2024 143 by Iban Martin RN Outcome: Adequate for Discharge 06/04/2024 143 by Iban Martin RN Outcome: Adequate for Discharge Goal: STG - Maintains static standing balance without upper extremity support. 06/04/2024 143 by Iban Martin RN Outcome: Adequate for Discharge 06/04/2024 143 by Iban Martin RN Outcome: Adequate for Discharge Goal: STG - Maintains static sitting balance with upper extremity support. 06/04/2024 143 by Iban Martin RN Outcome: Adequate for Discharge 06/04/20241438 by Iban Martin RN Outcome: Adequate for Discharge Goal: STG - Maintains static sitting balance without upper extremity support. 06/04/2024 143 by Iban Martin RN Outcome: Adequate for Discharge 06/04/20241438 by Iban Martin RN Outcome: Adequate for Discharge Goal: STG - Maintains dynamic sitting balance with upper extremity support. 06/04/2024 143 by Iban Martin RN Outcome: Adequate for Discharge 06/04/20241438 by Iban Martin RN Outcome: Adequate for Discharge Goal: STG - Maintains dynamic sitting balance without upper extremity support. 06/04/2024 143 by Iban Martin RN Outcome: Adequate for Discharge 06/04/20241438 by Iban Martin RN Outcome: Adequate for Discharge Problem: Mobility Goal: LTG - Patient will be able to go up and down a curb/step with the appropriate device 06/04/20241438 by Iban Martin RN Outcome: Adequate for Discharge 06/04/20241438 by Iban Martin RN Outcome: Adequate for Discharge Goal: LTG - Patient will propel wheelchair household/community distances 06/04/20241438 by Iban Martin RN Outcome: Adequate for Discharge 06/04/20241438 by Iban Martin RN Outcome: Adequate for Discharge Goal: LTG - Patient will demonstrate kitchen mobility 06/04/20241438 by Iban Martin RN Outcome: Adequate for Discharge 06/04/20241438 by Iban Martin RN Outcome: Adequate for Discharge Goal: LTG - Patient will recall and demonstrate 3 out of 3 total hip precautions during mobility 06/04/20241438 by Iban Martin RN Outcome: Adequate for Discharge 06/04/20241438 by Iban Martin RN Outcome: Adequate for Discharge Goal: LTG - Patient will ambulate community distance 06/04/2024 143 by Iban Martin RN Outcome: Adequate for Discharge 06/04/2024 143 by Iban Martin RN Outcome: Adequate for Discharge Goal: LTG - Patient will propel wheelchair household distances 06/04/2024 143 by Iban Martin RN Outcome: Adequate for Discharge 06/04/2024 143 by Iban Martin RN Outcome: Adequate for Discharge Goal: LTG - Patient will ambulate household distance 06/04/2024 143 by Iban Martin RN Outcome: Adequate for Discharge 06/04/2024 143 by Iban Martin RN Outcome: Adequate for Discharge Goal: Ped LTG - Child will crawl 50 feet independently. 06/04/2024 143 by Iban Martin RN Outcome: Adequate for Discharge 06/04/20241438 by Iban Martin RN Outcome: Adequate for Discharge Goal: Ped LTG - Patient will ambulate 150 feet independently. 06/04/2024 143 by Iban Martin RN Outcome: Adequate for Discharge 06/04/2024 143 by Iban Martin RN Outcome: Adequate for Discharge Goal: LTG - Patient will navigate 4-6 steps with rails/device 06/04/2024 143 by Iban Martin RN Outcome: Adequate for Discharge 06/04/2024 143 by Iban Martin RN Outcome: Adequate for Discharge Goal: LTG - Patient will demonstrate safe mobility requirements. 06/04/2024 143 by Iban Martin RN Outcome: Adequate for Discharge 06/04/2024 143 by Iban Martin RN Outcome: Adequate for Discharge Goal: LTG - Patient will ascend and descend a flight of stairs 06/04/2024 143 by Iban Martin RN Outcome: Adequate for Discharge 06/04/2024 143 by Iban Martin RN Outcome: Adequate for Discharge Goal: STG - Patient will propel the wheelchair 06/04/2024 143 by Iban Martin RN Outcome: Adequate for Discharge 06/04/2024 143 by Iban Martin, ZACHARY Outcome: Adequate for Discharge Goal: STG - Patient will ambulate 06/04/2024 143 by Iban Martin RN Outcome: Adequate for Discharge 06/04/20241438 by Iban Martin RN Outcome: Adequate for Discharge Goal: STG - Patient will ambulate up and down a curb/step 06/04/20241438 by Iban Martin RN Outcome: Adequate for Discharge 06/04/20241438 by Iban Martin RN Outcome: Adequate for Discharge Goal: STG - Patient will ascend and descend four to six stairs 06/04/20241438 by Iban Martin RN Outcome: Adequate for Discharge 06/04/20241438 by Iban Martin RN Outcome: Adequate for Discharge Goal: STG - Patient will ascend and descend a flight of stairs 06/04/20241438 by Iban Martin RN Outcome: Adequate for Discharge 06/04/20241438 by Iban Martin RN Outcome: Adequate for Discharge Goal: STG - Patient is independent with home exercise program. 06/04/20241438 by Iban Martin RN Outcome: Adequate for Discharge 06/04/20241438 by Iban Martin RN Outcome: Adequate for Discharge Goal: STG - Patient will tolerate ____ repetitions of exercises. 06/04/20241438 by Iban Martin RN Outcome: Adequate for Discharge 06/04/20241438 by Iban Martin RN Outcome: Adequate for Discharge Problem: Safety Goal: LTG - Patient will adhere to hip precautions during ADL's and transfers 06/04/20241438 by Iban Martin RN Outcome: Adequate for Discharge 06/04/20241438 by Iban Martin RN Outcome: Adequate for Discharge Goal: LTG - Patient will demonstrate safety requirements appropriate to situation/environment 06/04/20241438 by Iban Martin RN Outcome: Adequate for Discharge 06/04/20241438 by Iban Martin RN Outcome: Adequate for Discharge Goal: LTG - Patient will utilize safety techniques 06/04/20241438 by Iban Martin RN Outcome: Adequate for Discharge 06/04/20241438 by Iban Martin RN Outcome: Adequate for Discharge Goal: STG - Patient locks brakes on wheelchair 06/04/20241438 by Iban Martin RN Outcome: Adequate for Discharge 06/04/2024 143 by Iban Martin RN Outcome: Adequate for Discharge Goal: STG - Patient uses call light consistently to request assistance with transfers 06/04/20241438 by Iban Martin RN Outcome: Adequate for Discharge 06/04/20241438 by Iban Martin RN Outcome: Adequate for Discharge Goal: STG - Patient uses gait belt during all transfers. 06/04/2024 143 by Iban Martin RN Outcome: Adequate for Discharge 06/04/2024 143 by Iban Martin RN Outcome: Adequate for Discharge Problem: Transfers Goal: LTG - Patient will transfer to car 06/04/20241438 by Iban Martin RN Outcome: Adequate for Discharge 06/04/20241438 by Iban Martin RN Outcome: Adequate for Discharge Goal: LTG - Patient will transfer from one surface to another 06/04/2024 143 by Iban Martin RN Outcome: Adequate for Discharge 06/04/20241438 by Iban Martin RN Outcome: Adequate for Discharge Goal: LTG - Patient will demonstrate safe transfer techniques 06/04/2024 143 by Iban Martin RN Outcome: Adequate for Discharge 06/04/20241438 by Iban Martin RN Outcome: Adequate for Discharge Goal: LTG - Patient will transfer to commode. 06/04/2024 143 by Iban Martin RN Outcome: Adequate for Discharge 06/04/2024 143 by Iban Martin RN Outcome: Adequate for Discharge Goal: LTG - Patient will transfer to tub/shower 06/04/2024 143 by Iban Martin RN Outcome: Adequate for Discharge 06/04/2024 143 by Iban Martin RN Outcome: Adequate for Discharge Goal: LTG - Patient will transfer from wheelchair to toilet 06/04/2024 143 by Iban Martin RN Outcome: Adequate for Discharge 06/04/20241438 by Iban Martin RN Outcome: Adequate for Discharge Goal: STG - Transfer from bed to chair 06/04/2024 143 by Martin, Iban, RN Outcome: Adequate for Discharge 06/04/2024 1439 by Iban Martin RN Outcome: Adequate for Discharge Goal: STG - Patient to transfer to and from sit to supine 06/04/2024 143 by Iban Martin RN Outcome: Adequate for Discharge 06/04/2024 143 by Iban Martin RN Outcome: Adequate for Discharge Goal: STG - Patient will perform bed mobility 06/04/2024 143 by Iban Matrin, ZACHARY Outcome: Adequate for Discharge 06/04/2024 143 by Iban Martin RN Outcome: Adequate for Discharge Goal: STG - Patient will roll 06/04/2024 143 by Iban Martin, ZACHARY Outcome: Adequate for Discharge 06/04/2024 143 by Iban Martin RN Outcome: Adequate for Discharge Goal: STG - Patient will transfer sit to and from stand 06/04/2024 143 by Iban Martin RN Outcome: Adequate for Discharge 06/04/2024 143 by Iban Martin, ZACHARY Outcome: Adequate for Discharge Goal: STG - Patient will perform car transfer 06/04/2024 143 by Iban Martin RN Outcome: Adequate for Discharge 06/04/2024 143 by Iban Martin, ZACHARY Outcome: Adequate for Discharge Goal: STG - Patient will perform toilet transfer 06/04/2024 143 by Iban Martin RN Outcome: Adequate for Discharge 06/04/2024 143 by Iban Martin RN Outcome: Adequate for Discharge Goal: STG - Patient will perform tub/shower transfer 06/04/2024 143 by Iban Martin, ZACHARY Outcome: Adequate for Discharge 06/04/2024 143 by Iban Martin RN Outcome: Adequate for Discharge Goal: STG - Patient will follow hip precautions during transfers 06/04/2024 143 by Iban Martin, ZACHARY Outcome: Adequate for Discharge 06/04/2024 143 by Iban Martin RN Outcome: Adequate for Discharge Goal: Ped STG - Patient will follow precautions during transfers. 06/04/2024 143 by Iban Martin, ZACHARY Outcome: Adequate for Discharge 06/04/2024 143 by Iban Martin, ZACHARY Outcome: Adequate for Discharge Goal: STG - Patient maintains weight bearing status during transfers 06/04/2024 1439 by Iban Martin RN Outcome: Adequate for Discharge 06/04/2024 1439 by Iban Martin RN Outcome: Adequate for Discharge Problem: Communication/Dysarthria Goal: LTG - Patient will 06/04/2024 1439 by Iban Martin RN Outcome: Adequate for Discharge 06/04/2024 1439 by Iban Martin RN Outcome: Adequate for Discharge * Autumn Lafleur MSW - 06/04/2024 1:57 PM CDT Facility Transfer Note Level of Care: Acute Rehab Facility Payor Source: Medicare Facility Name: (include name of person confirming admission): Actual discharge provider: [facility] Made Aware of Special Needs (if applicable): N/A RN Call Report to: [phone] or alternate [phone] Fax D/C Orders to: [phone] Transportation (company and number): [employer] [phone] Certificate of Medical Necessity rationale: Complete Date/time of transfer: 06/04/2024 at 3:30pm Accepting MD and contact #: Ramin Matt Completed and Signed [id number] (if applicable): N/A Physician signed: N/A Family/Other Notified of Transfer (name/phone): /JUDY Barajas [phone] Authorization Skilled Care: N/A Authorization for Transportation: N/A Verified Qualifying Stay(Skilled Only, 3 consecutive days): NOT APPLICABLE Present hospitalization: N/A Past 30 days: N/A Patient discharged to SNF under Medicare SNF 3-day waiver? No Comments: [facility] [facility] #[id number] Name/Phone number: NOAH Jorge [phone] * Maria Fernanda Hay SLP - 06/04/2024 9:15 AM CDT [facility] Physical Medicine and Rehabilitation Swallow Treatment Patient: Yaya Vazquez Jr. Med Record Number: [id number] Date of : 1960 Age: [age] year old PPE: PPE worn by staff: gloves Impressions: Patient's swallow re-assessed this date following reports that pt was coughing with dinner last night. Pt denied dysphagia and consumed trials of rika cracker and water w/o overt s/s aspiration for this assessment. Pt's current RN also states pt has been tolerating intake w/o difficulty today. Pt noted to cough while at rest but did not exhibit any coughing immediately following intake. Would recommend pt continue his current diet. ST will continue to monitor pt's diet tolerance. Recommendations: Diet Liquids Recommendation: Thin/ Thin (0) Diet Solids Recommendation: Regular/Regular (7) Recommended Form of Meds: Feeding Tube (or as tolerated by mouth) Compensatory Swallowing Strategies: 90 Degrees elevation for all oral intake;Periodic supervision with meals;Small bites/sips;Eat/Feed slowly Recommended Tests/Consults: None Discharge Recommendations: Patient will benefit from intense 3 hour per day multidisciplinary inpatient therapies Speech therapy is recommended to improve swallow function. SUBJECTIVE: Patient Goals: None stated Pain Assessment: Pain Location #1 Pain Scale/Observation: Numeric (0-10) Pain Rating Score #1: 0 Sedation Level #1: 1-Awake and alert OBJECTIVE: Level of Consciousness: alert Orientation Level: oriented to person, oriented to place, oriented to time Positioning: Upright in bed Respiratory Status: Room air Swallow Trials: Thin Liquid: Presentation: Straw-Assisted Oral: Within Functional Limits Pharyngeal: (No signs/symptoms of aspiration;) Solid: Presentation: Self-Fed Oral: Within Normal Limits Pharyngeal: Within Functional Limits Assessment: Risk For Aspiration: Mild Primary Diagnostic Impression - Oral: No dysphagia Primary Diagnostic Impression - Pharyngeal: Mild (per recent MBS results) Treatment/Education/Interventions: While performing 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 PRESS PLATE SETTER, Patient instructed in: diet/liquid recommendations and swallowing strategies/aspiration precautions. Pt instructed in the use of small bites and sips and slow rate. Patient demonstrated Good understanding of instructions given. Nurse contacted regarding results of treatment session. INFORMED CONSENT TO TREATMENT: Plan of care including recommended therapy, goals and frequency, discussed with patient who understands and agrees to proceed. Short Term Goals Patient will tolerate recommended food and liquid consistencies without clinical signs of aspiration. Patient will follow recommended swallowing strategies. Care Home Goal (s): Patient to discharge to appropriate next level of inpatient care. Plan: Dysphagia tx for ongoing assessment * Judd Mcnair MSW - 06/04/2024 8:37 AM CDT Social Work Progress Note Discharge Plan Disposition: Rehab Transportation: Ambulance Anticipated Discharge Date: TBD Contacts: Comments: Welfare Administrator contacted Christi with [facility]. Christi requested to be made aware once patient is ready for discharge. SW will continue to follow. Name/Phone number: NOAH Dumont * Radha Batista RN - 06/03/2024 8:14 PM CDT Spoke with Evelyn Carlos MD and informed him that patient is coughing excessively with every bite offood he consumes. Evelyn ordered to not give patient anymore food tonight until Speech can see him tomorrow Patient stable at this time * Radha Batista RN - 06/03/2024 8:10 PM CDT Family member in room feeding patient, patient continuously coughing. This nurse enters room and informs family member to stop feeding patient. Patient coughing lasting over 20 minutes and Is still having episodes of coughing. * Perfecto Hatch APRN-CNP - 06/03/2024 3:16 PM CDT Family Notification Documentation Contact made: 06/03/2024 3:16 PM Person(s) contacted: Sister - [place] Method of communication: Phone Summary of discussion Called sister to update her on swallow evaluation today. He passed for a regular consistency diet and thin liquids. She was very excited that patient is moving in the right direction. Updated her that patient was currently getting his echo and after that his work up would be completed. He has a bedat [facility] for tomorrow per SW. Sister had no further questions at this time. STEW Michel * Judd Mcnair MSW - 06/03/2024 2:54 PM CDT Social Work Progress Note Discharge Plan Disposition: Acute Rehab Transportation: Ambulance Anticipated Discharge Date: 06/04/2024 Contacts: Comments: Welfare Administrator contacted Liaison Christi [phone] with [facility] to obtain an update. Christi made SW aware that patient has been accepted. A bed will be available tomorrow afternoon. Ambulance Transportation will be set for tomorrow. SW will continue to follow. Name/Phone number: NOAH Dumont * Perfecto Hatch APRN-CNP - 06/03/2024 2:22 PM CDT NEUROLOGY PROGRESS NOTE 06/03/2024 at 2:23 PM Admission Date: 05/25/2024 HISTORY: History of Present Illness: 63 yom with repeated episodes of syncope lasting around 30 seconds. Was admitted to vascular neurology service where cEEG was negative for electrographic seizure activity/discharges, MRI brain wo contrast negative for acute infarct. Was placed on bordley list pending rehab placement with Cardiology, endovascular/interventional neurology, and general neurology outpatient follow up. On 05/28 in the evening, patient had another syncopal event similar to prior events. Code stroke called, CTH/CTA negative. Patient was transferred back to neuro floor. 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 CTA (05/29): 1.No acute intracranial hemorrhage. 2.No large arterial occlusions or significant stenoses identified in the head or neck. 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 4.Atherosclerotic disease of the extracranial and intracranial arteries as described above. 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 ASSESSMENT AND PLAN: Patient is a 63 yo male that has repeat episodes of syncope. Each lasting around 30 seconds. Most recent one occurred 05/29. He was transferred to neuro floor from [facility]. - New CTH and CTA show no acute findings - MRI confirm no new stroke (05/26) - EEG negative for seizure - Consulted Cardiology - Cardiology recommended repeat TTE - will be completed today - Continue DAPT and Atorvastatin for secondary stroke prevention - Stat CTP for any change in neurological examination or new episodes of syncope - Head of bed > 30?? - Avoid hypoglycemia, hyponatremia, and hyperthermia - Sodium goals: normal range - BP Goal: less than 160 - Continue diet per ST; PT/OT - 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 PRESS PLATE SETTER passed patient for regular diet with thin liquids. - Will see intake before discontinuing TFs. - Will need follow up in Vascular neurology for moderate to severe stenosis of the proximal basilarartery without evidence of complete occlusion and LICA aneurysm. Case findings discussed with Dr. Enamorado, Stroke attending. Perfecto Hatch APRN-CABLE FERRYBOAT OPERATOR 06/03/2024 2:23 PM * Maria Fernanda Hay, SCARLETT - 06/03/2024 1:40 PM CDT [facility] Modified Barium Swallow Study Patient: Yaya Vazquez Jr. Med Record Number [id number] Date of : 1960 Age: [age] year old PPE: gloves Diagnosis: Patient Active Problem List: CAD (coronary artery disease) Essential hypertension S/P CABG x 3 Other chest pain Controlled type 2 diabetes mellitus without complication, without long-term current use of insulin (HCC) Asthma ([facility]) Hyperlipidemia Morbid obesity with BMI of 40.0-44.9, adult (HCC) Nocturia Weight gain Acute hypoxemic respiratory failure (HCC) Altered mental status, unspecified altered mental status type Hypoxia Staphylococcus aureus infection Cerebrovascular accident (HCC) Dysphagia following cerebral infarction Impaired cognition Problem with highly complex treatment regime Cerebrovascular accident (CVA), unspecified mechanism ([facility]) H/O: CVA (cerebrovascular accident) Seizure-like activity ([facility]) Basilar artery stenosis Past Medical History: Diagnosis Date Anemia 01/2018 Asthma ([facility]) Chest congestion 08/05/2020 Confusional arousals 08/05/2020 Controlled type 2 diabetes mellitus without complication, without long-term current use of insulin ([facility]) 09/28/2011 Coronary artery disease involving teller heart with angina pectoris ([facility]) 09/04/2018 Cough syncope 2018 Daytime sleepiness [...] 6-8 months-covid Wound of sternal region 02/23/2018 Impression: Pt presents with mild oropharyngeal dysphagia characterized by slightly delayed swallowinitiation and flash penetration of thin liquids. Swallow Recommendations: Liquids: Thin (1) Diet: Regular (7) Swallowing guidelines: Sit at 90 degrees Small, controlled amounts at slow rate Meds as tolerated or via PEG Recommended tests/consults: None Discharge Recommendation: TBD pending medical status No further ST needs anticipated at discharge. Objective: MBS completed. Utilized portions of MBSImP protocol. Vocal Quality: WFLs Cognitive/Mental Status: Patient appeared alert and oriented with no cognitive impairments that would interfere with this evaluation. Assessment: Procedure: This procedure was performed in conjunction with radiology using lateral views. The patient was given thin liquids, rika cracker, and pudding. Oral Stage: Lip Closure: interlabial escape Tongue Control During Bolus Hold: cohesive bolus between tongue to palatal seal Bolus Preparation/Mastication: timely and efficient chewing and mashing Bolus Transport/Lingual Motion: brisk tongue motion Oral Residue: trace residue lining oral structures; Location: tongue Initiation of Pharyngeal Swallow: bolus head in pyriforms for thin liquids. Bolus reaches the vallecula for solids and purees. Swallow is delayed approximately 4-5 seconds overall. Pharyngeal Stage: Soft Palate Elevation: no bolus between soft palate/pharygneal wall Laryngeal Elevation: partial superior movement of thyroid cartilage/partial approximation of arytenoids to epiglottic petiole Anterior Hyoid Excursion: partial anterior movement Epiglottic Movement: complete inversion Laryngeal Vestibule Closure: complete Pharyngeal Stripping Wave: present complete Pharyngeal Contraction: patient in bed, unable to complete in A-P Pharyngoesophageal Segment Opening: complete distension and complete duration with no obstruction of flow Tongue Base Retraction: trace column of contrast or air between TB and PW Pharyngeal Residue: trace residue within or on pharyngeal structures; Location: tongue base Esophageal Stage: Esophageal Clearance Upright Position: patient in bed, unable to complete in A-P or able to do esophogeal scan Thin Fluids: Penetration-Aspiration: Flash penetration with straw sips only Amount: Trace Timing: During swallow PAS Score: 2. Material enters the airway, remains above the vocal folds, and is ejected from the airway. Puree: Penetration-Aspiration: None Solid: Penetration-Aspiration: None Swallowing Function: Mild dysphagia Treatment Recommendations: ST to monitor pt's tolerance for recommended diet. Education: Patient and Physician instructed in recommedations and indicated understanding. Informed Consent to Treatment: Plan of care including recommended therapy, goals and frequency, as well as potential risks and benefits of treatment/assessment explained to the patient who understands and agrees to proceed. Goals: Short Term Goal(s): Patient will tolerate recommended food and liquid consistencies without clinical signs of aspiration. Patient will follow recommended swallowing strategies. Care Home Goal(s): Patient to be independent/baseline with functional swallow and be able to safely discharge to priorlevel of care. Speech-Language Pathologist 06/03/2024 * Tarah Tabares RN - 06/03/2024 1:22 PM CDT Stroke Psychosocial Assessment Case Management Screen completed, welcome letter given Met with patient and spouse Lives with: Sister Diagnosis: The primary encounter diagnosis was Cerebrovascular accident (CVA), unspecified mechanism (HCC). Diagnoses of Syncope, unspecified syncope type and Dysphagia, unspecified type were also pertinent to this visit. Contacts/Support: Extended Emergency Contact Information Primary Emergency Contact: Jenn Mckee (POA) [facility] Mobile Relation: Sister Secondary Emergency Contact: Christi Vazquez Mobile Relation: Daughter Insurance: Payer/Plan Subscriber Name Rel Member # Group # MEDICARE - MEDICARE P* BITA VAZQUEZ* Self [id number] [address] Prior level of functioning: Cognition: A&O Mental Health History: None Employment/income status: Retired Retired Alcohol/Drug/Tobacco: None Prior Stroke: 01/2024 Co-morbidities: CAD s/p CABG, obesity, HTN, HLD, DM II, Ischemic stroke Medication Needs: Non Established Resources: Community Resource Contact Information: SW Referral: Yes If patient requires HHC at discharge, he/she requests: Anticipated level of care provider: None Equipment at Home: Michelle Lift;Hospital Bed;Chair lift for stairs;Wheelchair-Standard Current DME Provider: Recommended/Needed DME: PCP: Kiana Cole MD If no PCP, action taken: None Transportation: Coping Strengths: Good Short Term Goals: [place] Care Home Goals: Home Family/Support included in planning:Yes Patient and Family Questions/Concerns: None Discharge Plan: Anticipated level of care at discharge: Unknown Anticipated Discharge Date: Tarah Tabares RN 06/03/2024 * Iban Martin RN - 06/03/2024 11:12 AM CDT Problem: General Goal: LTG - Patient will Outcome: Progressing Goal: STG - Patient will Outcome: Progressing Goal: STG - Patient will Outcome: Progressing Goal: STG - Patient will Outcome: Progressing Problem: Balance Goal: LTG - Patient will demonstrate Intervention to enhance balance for safe completion of daily activities Outcome: Progressing Goal: LTG - Patient will maintain balance Outcome: Progressing Goal: LTG - Patient will maintain balance to allow for safe mobility Outcome: Progressing Goal: LTG - Patient will maintain standing and sitting balance to allow for completion of daily activities Outcome: Progressing Goal: LTG - Patient will tolerate standing Outcome: Progressing Goal: STG - Maintains dynamic standing balance with upper extremity support. Outcome: Progressing Goal: STG - Maintains dynamic standing balance without upper extremity support. Outcome: Progressing Goal: STG - Maintains static standing balance with upper extremity support. Outcome: Progressing Goal: STG - Maintains static standing balance without upper extremity support. Outcome: Progressing Goal: STG - Maintains static sitting balance with upper extremity support. Outcome: Progressing Goal: STG - Maintains static sitting balance without upper extremity support. Outcome: Progressing Goal: STG - Maintains dynamic sitting balance with upper extremity support. Outcome: Progressing Goal: STG - Maintains dynamic sitting balance without upper extremity support. Outcome: Progressing Problem: Mobility Goal: LTG - Patient will be able to go up and down a curb/step with the appropriate device Outcome: Progressing Goal: LTG - Patient will propel wheelchair household/community distances Outcome: Progressing Goal: LTG - Patient will demonstrate kitchen mobility Outcome: Progressing Goal: LTG - Patient will recall and demonstrate 3 out of 3 total hip precautions during mobility Outcome: Progressing Goal: LTG - Patient will ambulate community distance Outcome: Progressing Goal: LTG - Patient will propel wheelchair household distances Outcome: Progressing Goal: LTG - Patient will ambulate household distance Outcome: Progressing Goal: Ped LTG - Child will crawl 50 feet independently. Outcome: Progressing Goal: Ped LTG - Patient will ambulate 150 feet independently. Outcome: Progressing Goal: LTG - Patient will navigate 4-6 steps with rails/device Outcome: Progressing Goal: LTG - Patient will demonstrate safe mobility requirements. Outcome: Progressing Goal: LTG - Patient will ascend and descend a flight of stairs Outcome: Progressing Goal: STG - Patient will propel the wheelchair Outcome: Progressing Goal: STG - Patient will ambulate Outcome: Progressing Goal: STG - Patient will ambulate up and down a curb/step Outcome: Progressing Goal: STG - Patient will ascend and descend four to six stairs Outcome: Progressing Goal: STG - Patient will ascend and descend a flight of stairs Outcome: Progressing Goal: STG - Patient is independent with home exercise program. Outcome: Progressing Goal: STG - Patient will tolerate ____ repetitions of exercises. Outcome: Progressing Problem: Safety Goal: LTG - Patient will adhere to hip precautions during ADL's and transfers Outcome: Progressing Goal: LTG - Patient will demonstrate safety requirements appropriate to situation/environment Outcome: Progressing Goal: LTG - Patient will utilize safety techniques Outcome: Progressing Goal: STG - Patient locks brakes on wheelchair Outcome: Progressing Goal: STG - Patient uses call light consistently to request assistance with transfers Outcome: Progressing Goal: STG - Patient uses gait belt during all transfers. Outcome: Progressing Problem: Transfers Goal: LTG - Patient will transfer to car Outcome: Progressing Goal: LTG - Patient will transfer from one surface to another Outcome: Progressing Goal: LTG - Patient will demonstrate safe transfer techniques Outcome: Progressing Goal: LTG - Patient will transfer to commode. Outcome: Progressing Goal: LTG - Patient will transfer to tub/shower Outcome: Progressing Goal: LTG - Patient will transfer from wheelchair to toilet Outcome: Progressing Goal: STG - Transfer from bed to chair Outcome: Progressing Goal: STG - Patient to transfer to and from sit to supine Outcome: Progressing Goal: STG - Patient will perform bed mobility Outcome: Progressing Goal: STG - Patient will roll Outcome: Progressing Goal: STG - Patient will transfer sit to and from stand Outcome: Progressing Goal: STG - Patient will perform car transfer Outcome: Progressing Goal: STG - Patient will perform toilet transfer Outcome: Progressing Goal: STG - Patient will perform tub/shower transfer Outcome: Progressing Goal: STG - Patient will follow hip precautions during transfers Outcome: Progressing Goal: Ped STG - Patient will follow precautions during transfers. Outcome: Progressing Goal: STG - Patient maintains weight bearing status during transfers Outcome: Progressing Problem: Pain/Discomfort Goal: LTG - Patient will manage pain with the appropriate technique/Intervention Outcome: Progressing Goal: LTG - Patient will demonstrate Intervention for managing pain. Outcome: Progressing Goal: STG - Patient will reduce or eliminate use of analgesics. Outcome: Progressing Goal: STG - Pain is manageable through therapies. Outcome: Progressing Goal: STG - Patient will verbalize an acceptable level of pain Outcome: Progressing Goal: STG - Patient's pain is managed to allow active participation in daily activities Outcome: Progressing Goal: STG - Patient will increase activity level. Outcome: Progressing Goal: STG - Patient verbalizes a reduction in pain level. Outcome: Progressing Goal: Ped - Patient verbalizes/demonstrates a reduction in pain level. Outcome: Progressing Problem: Communication/Dysarthria Goal: LTG - Patient will Outcome: Progressing * Perfecto Hatch APRN-CABLE FERRYBOAT OPERATOR - 06/02/2024 2:39 PM CDT NEUROLOGY PROGRESS NOTE 06/02/2024 at 2:39 PM Admission Date: 05/25/2024 HISTORY: History of Present Illness: 63 yom with repeated episodes of syncope lasting around 30 seconds. Was admitted to vascular neurology service where cEEG was negative for electrographic seizure activity/discharges, MRI brain wo contrast negative for acute infarct. Was placed on bordley list pending rehab placement with Cardiology, endovascular/interventional neurology, and general neurology outpatient follow up. On 05/28 in the evening, patient had another syncopal event similar to prior events. Code stroke called, CTH/CTA negative. Patient was transferred back to neuro floor. 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 CTA (05/29): 1.No acute intracranial hemorrhage. 2.No large arterial occlusions or significant stenoses identified in the head or neck. 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 4.Atherosclerotic disease of the extracranial and intracranial arteries as described above. 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 ASSESSMENT AND PLAN: Patient is a 63 yo male that has repeat episodes of syncope. Each lasting around 30 seconds. Most recent one occurred 05/29. He was transferred to neuro floor from [facility]. - New CTH and CTA show no acute findings - MRI confirm no new stroke (05/26) - EEG negative for seizure - Consulted Cardiology - Cardiology recommended repeat TTE - Continue DAPT and Atorvastatin for secondary stroke prevention - Stat CTP for any change in neurological examination or new episodes of syncope - Head of bed > 30?? - Avoid hypoglycemia, hyponatremia, and hyperthermia - Sodium goals: normal range - BP Goal: less than 160 - Continue puree diet per ST; PT/OT - Will need follow up in Vascular neurology for moderate to severe stenosis of the proximal basilarartery without evidence of complete occlusion and LICA aneurysm. Case findings discussed with Dr. Enamorado, Stroke attending. WILLIE Michel 06/02/2024 2:39 PM * Maria Fernanda Hay SLP - 06/02/2024 2:35 PM CDT [facility] Physical Medicine and Rehabilitation Swallow Treatment Patient: Yaya Vazquez Jr. Med Record Number: [id number] Date of : 1960 Age: [age] year old PPE: PPE worn by staff: gloves Impressions: Patient accepted trials of ice chips, purees and thin liquids w/o overt s/s aspirationfor this assessment. Would recommend pt participate in further instrumental swallow evaluation to determine candidacy for diet advance. Recommendations: Diet Liquids Recommendation: Mildly Thick (2)/ Ivins Thick Diet Solids Recommendation: Pureed (4)/Pureed Dys 1 Recommended Form of Meds: Feeding Tube (or as tolerated by mouth) Compensatory Swallowing Strategies: 90 Degrees elevation for all oral intake;One to one assist withmeals;Small bites/sips;Eat/Feed slowly;Feed patient only when alert Recommended Tests/Consults: Modified Barium Swallow Discharge Recommendations: TBD pending medical status Speech therapy is recommended to improve swallow function. SUBJECTIVE: Patient Goals: None stated Pain Assessment: Pain Location #1 Pain Scale/Observation: Numeric (0-10) Pain Rating Score #1: 0 Sedation Level #1: 1-Awake and alert OBJECTIVE: Level of Consciousness: alert Orientation Level: oriented to person, oriented to place, oriented to time Positioning: Upright in bed Respiratory Status: Room air Swallow Trials: Ice chips: Presentation: Spoon-Assisted Oral: Within Functional Limits Pharyngeal: No signs/symptoms of aspiration; Apparently strong and timely laryngeal elevation Thin Liquid: Presentation: Straw-Assisted Oral: Within Functional Limits Pharyngeal: (No signs/symptoms of aspiration;); Apparently strong and timely laryngeal elevation Puree: Presentation: Spoon-Assisted Oral: Within Functional Limits Pharyngeal: (No signs/symptoms of aspiration;); Apparently strong and timely laryngeal elevation Assessment: Risk For Aspiration: Mild Primary Diagnostic Impression - Oral: Mild Primary Diagnostic Impression - Pharyngeal: Mild (suspected) Treatment/Education/Interventions: While performing 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 PRESS PLATE SETTER, Patient instructed in: goals of treatment and diet/liquid recommendations. Patient demonstrated Good understanding of instructions given. Physician contacted regarding results of treatment session. INFORMED CONSENT TO TREATMENT: Plan of care including recommended therapy, goals and frequency, discussed with patient who understands and agrees to proceed. Short Term Goals Patient will tolerate recommended food and liquid consistencies without clinical signs of aspiration. Patient will follow recommended swallowing strategies. Financial Solutions Advisor Goal (s): Patient to be independent/baseline with functional mobility and self care and be able to safely discharge to prior level of care. Plan: Modified Barium Swallow Study * Tarah Tabares RN - 06/02/2024 2:18 PM CDT CM aware of consult * hTea Negrete RN - 06/02/2024 8:51 AM CDT Problem: General Goal: LTG - Patient will Outcome: Progressing Goal: STG - Patient will Outcome: Progressing Goal: STG - Patient will Outcome: Progressing Goal: STG - Patient will Outcome: Progressing Problem: Balance Goal: LTG - Patient will demonstrate Intervention to enhance balance for safe completion of daily activities Outcome: Progressing Goal: LTG - Patient will maintain balance Outcome: Progressing Goal: LTG - Patient will maintain balance to allow for safe mobility Outcome: Progressing Goal: LTG - Patient will maintain standing and sitting balance to allow for completion of daily activities Outcome: Progressing Goal: LTG - Patient will tolerate standing Outcome: Progressing Goal: STG - Maintains dynamic standing balance with upper extremity support. Outcome: Progressing Goal: STG - Maintains dynamic standing balance without upper extremity support. Outcome: Progressing Goal: STG - Maintains static standing balance with upper extremity support. Outcome: Progressing Goal: STG - Maintains static standing balance without upper extremity support. Outcome: Progressing Goal: STG - Maintains static sitting balance with upper extremity support. Outcome: Progressing Goal: STG - Maintains static sitting balance without upper extremity support. Outcome: Progressing Goal: STG - Maintains dynamic sitting balance with upper extremity support. Outcome: Progressing Goal: STG - Maintains dynamic sitting balance without upper extremity support. Outcome: Progressing Problem: Mobility Goal: LTG - Patient will be able to go up and down a curb/step with the appropriate device Outcome: Progressing Goal: LTG - Patient will propel wheelchair household/community distances Outcome: Progressing Goal: LTG - Patient will demonstrate kitchen mobility Outcome: Progressing Goal: LTG - Patient will recall and demonstrate 3 out of 3 total hip precautions during mobility Outcome: Progressing Goal: LTG - Patient will ambulate community distance Outcome: Progressing Goal: LTG - Patient will propel wheelchair household distances Outcome: Progressing Goal: LTG - Patient will ambulate household distance Outcome: Progressing Goal: Ped LTG - Child will crawl 50 feet independently. Outcome: Progressing Goal: Ped LTG - Patient will ambulate 150 feet independently. Outcome: Progressing Goal: LTG - Patient will navigate 4-6 steps with rails/device Outcome: Progressing Goal: LTG - Patient will demonstrate safe mobility requirements. Outcome: Progressing Goal: LTG - Patient will ascend and descend a flight of stairs Outcome: Progressing Goal: STG - Patient will propel the wheelchair Outcome: Progressing Goal: STG - Patient will ambulate Outcome: Progressing Goal: STG - Patient will ambulate up and down a curb/step Outcome: Progressing Goal: STG - Patient will ascend and descend four to six stairs Outcome: Progressing Goal: STG - Patient will ascend and descend a flight of stairs Outcome: Progressing Goal: STG - Patient is independent with home exercise program. Outcome: Progressing Goal: STG - Patient will tolerate ____ repetitions of exercises. Outcome: Progressing Problem: Safety Goal: LTG - Patient will adhere to hip precautions during ADL's and transfers Outcome: Progressing Goal: LTG - Patient will demonstrate safety requirements appropriate to situation/environment Outcome: Progressing Goal: LTG - Patient will utilize safety techniques Outcome: Progressing Goal: STG - Patient locks brakes on wheelchair Outcome: Progressing Goal: STG - Patient uses call light consistently to request assistance with transfers Outcome: Progressing Goal: STG - Patient uses gait belt during all transfers. Outcome: Progressing Problem: Transfers Goal: LTG - Patient will transfer to car Outcome: Progressing Goal: LTG - Patient will transfer from one surface to another Outcome: Progressing Goal: LTG - Patient will demonstrate safe transfer techniques Outcome: Progressing Goal: LTG - Patient will transfer to commode. Outcome: Progressing Goal: LTG - Patient will transfer to tub/shower Outcome: Progressing Goal: LTG - Patient will transfer from wheelchair to toilet Outcome: Progressing Goal: STG - Transfer from bed to chair Outcome: Progressing Goal: STG - Patient to transfer to and from sit to supine Outcome: Progressing Goal: STG - Patient will perform bed mobility Outcome: Progressing Goal: STG - Patient will roll Outcome: Progressing Goal: STG - Patient will transfer sit to and from stand Outcome: Progressing Goal: STG - Patient will perform car transfer Outcome: Progressing Goal: STG - Patient will perform toilet transfer Outcome: Progressing Goal: STG - Patient will perform tub/shower transfer Outcome: Progressing Goal: STG - Patient will follow hip precautions during transfers Outcome: Progressing Goal: Ped STG - Patient will follow precautions during transfers. Outcome: Progressing Goal: STG - Patient maintains weight bearing status during transfers Outcome: Progressing Problem: Pain/Discomfort Goal: LTG - Patient will manage pain with the appropriate technique/Intervention Outcome: Progressing Goal: LTG - Patient will demonstrate Intervention for managing pain. Outcome: Progressing Goal: STG - Patient will reduce or eliminate use of analgesics. Outcome: Progressing Goal: STG - Pain is manageable through therapies. Outcome: Progressing Goal: STG - Patient will verbalize an acceptable level of pain Outcome: Progressing Goal: STG - Patient's pain is managed to allow active participation in daily activities Outcome: Progressing Goal: STG - Patient will increase activity level. Outcome: Progressing Goal: STG - Patient verbalizes a reduction in pain level. Outcome: Progressing Goal: Ped - Patient verbalizes/demonstrates a reduction in pain level. Outcome: Progressing Problem: Communication/Dysarthria Goal: LTG - Patient will Outcome: Progressing * Tarah Tabares RN - 06/02/2024 8:33 AM CDT CM acknowledges consult. * Aki Espinoza MD - 06/01/2024 11:36 AM CDT NEUROLOGY PROGRESS NOTE 05/31/2024 at 3:10 PM HISTORY: History of Present Illness per chart: 63 yom with repeated episodes of syncope lasting around 30 seconds. Was admitted to vascular neurology service where cEEG was negative for electrographic seizure activity/discharges, MRI brain wo contrast negative for acute infarct. Was placed on [facility] list pending rehab placement with Cardiology, endovascular/interventional neurology, and general neurology outpatient follow up. On 05/28 in the evening, patient had another syncopal event similar to prior events. Code stroke called, CTH/CTA negative. Patient was transferred back to neuro floor. Interval History: No acute events overnight. EEG negative for seizures. 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 CTA (05/29): 1.No acute intracranial hemorrhage. 2.No large arterial occlusions or significant stenoses identified in the head or neck. 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 4.Atherosclerotic disease of the extracranial and intracranial arteries as described above. 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 ASSESSMENT AND PLAN: Patient is a 63 yo male that has repeat episodes of syncope. Each lasting around 30 seconds. Most recent one occurred 05/29. He was transferred to neuro floor from [facility]. - New CTH and CTA show no acute findings - MRI confirm no new stroke (05/26) - EEG negative for seizures. Discontinued - Consulted cardiology - will speak with cardiology about holter monitor - TTE completed on 05/23 - Continue DAPT and Atorvastatin for secondary stroke prevention - Stat CTP for any change in neurological examination or new episodes of syncope - Head of bed > 30?? - Avoid hypoglycemia, hyponatremia, and hyperthermia - Sodium goals: normal range - BP Goal: less than 160 - Continue puree diet per ST; PT/OT - started tube feeds tonight and consult nutrition in the morning - Will need follow up in Vascular neurology for moderate to severe stenosis of the proximal basilarartery without evidence of complete occlusion and LICA aneurysm - scheduled follow up Case findings discussed with Dr. Enamorado, Stroke attending. Aki Espinoza MD 06/01/2024 11:36 AM * Ernie Albert RN - 05/31/2024 10:59 PM CDT Problem: General Goal: LTG - Patient will Outcome: Progressing Goal: STG - Patient will Outcome: Progressing Goal: STG - Patient will Outcome: Progressing Goal: STG - Patient will Outcome: Progressing Problem: Balance Goal: LTG - Patient will demonstrate Intervention to enhance balance for safe completion of daily activities Outcome: Progressing Goal: LTG - Patient will maintain balance Outcome: Progressing Goal: LTG - Patient will maintain balance to allow for safe mobility Outcome: Progressing Goal: LTG - Patient will maintain standing and sitting balance to allow for completion of daily activities Outcome: Progressing Goal: LTG - Patient will tolerate standing Outcome: Progressing Goal: STG - Maintains dynamic standing balance with upper extremity support. Outcome: Progressing Goal: STG - Maintains dynamic standing balance without upper extremity support. Outcome: Progressing Goal: STG - Maintains static standing balance with upper extremity support. Outcome: Progressing Goal: STG - Maintains static standing balance without upper extremity support. Outcome: Progressing Goal: STG - Maintains static sitting balance with upper extremity support. Outcome: Progressing Goal: STG - Maintains static sitting balance without upper extremity support. Outcome: Progressing Goal: STG - Maintains dynamic sitting balance with upper extremity support. Outcome: Progressing Goal: STG - Maintains dynamic sitting balance without upper extremity support. Outcome: Progressing Problem: Mobility Goal: LTG - Patient will be able to go up and down a curb/step with the appropriate device Outcome: Progressing Goal: LTG - Patient will propel wheelchair household/community distances Outcome: Progressing Goal: LTG - Patient will demonstrate kitchen mobility Outcome: Progressing Goal: LTG - Patient will recall and demonstrate 3 out of 3 total hip precautions during mobility Outcome: Progressing Goal: LTG - Patient will ambulate community distance Outcome: Progressing Goal: LTG - Patient will propel wheelchair household distances Outcome: Progressing Goal: LTG - Patient will ambulate household distance Outcome: Progressing Goal: Ped LTG - Child will crawl 50 feet independently. Outcome: Progressing Goal: Ped LTG - Patient will ambulate 150 feet independently. Outcome: Progressing Goal: LTG - Patient will navigate 4-6 steps with rails/device Outcome: Progressing Goal: LTG - Patient will demonstrate safe mobility requirements. Outcome: Progressing Goal: LTG - Patient will ascend and descend a flight of stairs Outcome: Progressing Goal: STG - Patient will propel the wheelchair Outcome: Progressing Goal: STG - Patient will ambulate Outcome: Progressing Goal: STG - Patient will ambulate up and down a curb/step Outcome: Progressing Goal: STG - Patient will ascend and descend four to six stairs Outcome: Progressing Goal: STG - Patient will ascend and descend a flight of stairs Outcome: Progressing Goal: STG - Patient is independent with home exercise program. Outcome: Progressing Goal: STG - Patient will tolerate ____ repetitions of exercises. Outcome: Progressing Problem: Safety Goal: LTG - Patient will adhere to hip precautions during ADL's and transfers Outcome: Progressing Goal: LTG - Patient will demonstrate safety requirements appropriate to situation/environment Outcome: Progressing Goal: LTG - Patient will utilize safety techniques Outcome: Progressing Goal: STG - Patient locks brakes on wheelchair Outcome: Progressing Goal: STG - Patient uses call light consistently to request assistance with transfers Outcome: Progressing Goal: STG - Patient uses gait belt during all transfers. Outcome: Progressing Problem: Transfers Goal: LTG - Patient will transfer to car Outcome: Progressing Goal: LTG - Patient will transfer from one surface to another Outcome: Progressing Goal: LTG - Patient will demonstrate safe transfer techniques Outcome: Progressing Goal: LTG - Patient will transfer to commode. Outcome: Progressing Goal: LTG - Patient will transfer to tub/shower Outcome: Progressing Goal: LTG - Patient will transfer from wheelchair to toilet Outcome: Progressing Goal: STG - Transfer from bed to chair Outcome: Progressing Goal: STG - Patient to transfer to and from sit to supine Outcome: Progressing Goal: STG - Patient will perform bed mobility Outcome: Progressing Goal: STG - Patient will roll Outcome: Progressing Goal: STG - Patient will transfer sit to and from stand Outcome: Progressing Goal: STG - Patient will perform car transfer Outcome: Progressing Goal: STG - Patient will perform toilet transfer Outcome: Progressing Goal: STG - Patient will perform tub/shower transfer Outcome: Progressing Goal: STG - Patient will follow hip precautions during transfers Outcome: Progressing Goal: Ped STG - Patient will follow precautions during transfers. Outcome: Progressing Goal: STG - Patient maintains weight bearing status during transfers Outcome: Progressing Problem: Pain/Discomfort Goal: LTG - Patient will manage pain with the appropriate technique/Intervention Outcome: Progressing Goal: LTG - Patient will demonstrate Intervention for managing pain. Outcome: Progressing Goal: STG - Patient will reduce or eliminate use of analgesics. Outcome: Progressing Goal: STG - Pain is manageable through therapies. Outcome: Progressing Goal: STG - Patient will verbalize an acceptable level of pain Outcome: Progressing Goal: STG - Patient's pain is managed to allow active participation in daily activities Outcome: Progressing Goal: STG - Patient will increase activity level. Outcome: Progressing Goal: STG - Patient verbalizes a reduction in pain level. Outcome: Progressing Goal: Ped - Patient verbalizes/demonstrates a reduction in pain level. Outcome: Progressing Problem: Communication/Dysarthria Goal: LTG - Patient will Outcome: Progressing * Aline Finch MD - 05/31/2024 7:00 AM CDT NEUROLOGY PROGRESS NOTE 05/31/2024 at 3:10 PM HISTORY: History of Present Illness: 63 yom with repeated episodes of syncope lasting around 30 seconds. Was admitted to vascular neurology service where cEEG was negative for electrographic seizure activity/discharges, MRI brain wo contrast negative for acute infarct. Was placed on b[facility]ley list pending rehab placement with Cardiology, endovascular/interventional neurology, and general neurology outpatient follow up. On 05/28 in the evening, patient had another syncopal event similar to prior events. Code stroke called, CTH/CTA negative. Patient was transferred back to neuro floor. Interval History: Spoke to family today, they feel like he is more lethargic since being in the hospital but may be contributed to decreased eating. Patient would like to go back home. 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 CTA (05/29): 1.No acute intracranial hemorrhage. 2.No large arterial occlusions or significant stenoses identified in the head or neck. 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 4.Atherosclerotic disease of the extracranial and intracranial arteries as described above. 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 ASSESSMENT AND PLAN: Patient is a 63 yo male that has repeat episodes of syncope. Each lasting around 30 seconds. Most recent one occurred 05/29. He was transferred to neuro floor from [facility]. - New CTH and CTA show no acute findings - MRI confirm no new stroke (05/26) - EEG negative for seizure - Consulted cardiology - will speak with cardiology about holter monitor - TTE completed on 05/23 - Continue DAPT and Atorvastatin for secondary stroke prevention - Stat CTP for any change in neurological examination or new episodes of syncope - Head of bed > 30?? - Avoid hypoglycemia, hyponatremia, and hyperthermia - Sodium goals: normal range - BP Goal: less than 160 - Continue puree diet per ST; PT/OT - started tube feeds tonight and consult nutrition in the morning - Will need follow up in Vascular neurology for moderate to severe stenosis of the proximal basilarartery without evidence of complete occlusion and LICA aneurysm - scheduled follow up Case findings discussed with Dr. Enamorado, Stroke attending. Aline Finch MD 06/01/2024 3:10 AM Associated attestation - Farhat Enamorado MD - 06/19/2024 7:30 AM CDT NEUROVASCULAR SERVICE ATTESTATION I saw and examined the patient with the Resident. I have verified all details of the Resident's note and agree with the Resident's documentation. Date of Service: 05/31/2024 Farhat Enamorado MD * Mellisa Palmer RN - 05/31/2024 12:06 AM CDT Problem: Neurological Deficit Goal: Neurological status is stable or improving 05/31/2024 0005 by Mellisa Palmer RN Outcome: Progressing 05/31/2024 0005 by Mellisa Palmer RN Outcome: Progressing Problem: Hemodynamic Status/Cardiac Output Goal: Patient has stable vital signs and fluid balance 05/31/2024 0005 by Mellisa Palmer RN Outcome: Progressing 05/31/2024 0005 by Mellisa Palmer RN Outcome: Progressing Problem: Oxygenation/Respiratory Function Goal: Respiratory rate/effort will be within specified limits Outcome: Progressing Problem: Aspiration Precautions Goal: Patient's risk of aspiration is minimized Outcome: Progressing Problem: Fall Risk Goal: Fall risk and fall related injury risk are minimized (interventions related to the fall risk can be found in the flowsheet documentation) Outcome: Progressing * Ana Hu RD/TG - 05/30/2024 3:11 PM CDT Clinical Nutrition Assessment Brief Synopsis: Patient is at Nutrition Risk; Specific criteria can be found in assessment below Nutrition Plan: Current diet order: Cardiac Standard -- RD to modify diet order per stroke protocol (see below) Diet recs per stroke protocol If A1C is <= 5.6%, advance diet to Cardiac If A1C is >= 5.7%, advance diet to Consistent Carb Cardiac Recommendations to Physician: None Comments: Pt scheduled for reassessment. A/Ox3. RN documenting avg PO intake at 92% of meals x 48 hrs -- adequate. No significant GI issues noted in chart recently. Last BM today -- on bowel regimen,per DEC. Labs reviewed; devin ADAMSL. RD to modify diet order to Consistent Carb Cardiac per stroke protocol due to A1C >= 5.7%. Last A1C 6.1% (01/23/24). Will attach Mediterranean diet handout to [facility] as d/c education resource. RD to follow per clinical nutrition guidelines. Assessment: Med/Surg History and Clinical Diagnoses: 63 year old male who has a PMH of CAD s/p CABG, obesity, HTN, HLD, T2DM, ischemic stroke of the left midbrain and left thalamus 01/2024, basilar artery stenosis s/p angioplasty. Height: 193 cm (6' 4 ) Weight: 129 kg (284 lb 6.3 oz) BMI: Body mass index is 34.62 kg/m??. BMI Range: Obese Class 1 IBW/lb (Calculated) Male: 202 , Recent Weights/Methods 03/17/2024 1238 04/28/2024 0843 05/19/2024 1007 05/22/2024 1332 05/26/2024 0939 Weight: 99.8 kg (220 lb) 99.8 kg (220 lb) 102.1 kg (225 lb) 129.3 kg (285 lb) 129 kg (284 lb 6.3 oz) Weight Method : -- -- Stated -- Bed scale Wt Comments: monitoring Diet order accuracy Current diet order: Cardiac Standard Nutrition recommendation: alter/change nutrition order P.O.Intake for the past 48 hrs: % Meal Taken Av.7 % Min: 75 % Max: 100 % Supplement(s) Consumed- Last 48 hours None Food Allergies: No known food allergies GI Concerns: None Chewing/Swallowing: None Pain affecting intake: No Estimated Needs: KCAL: [id number] (25-30 kcal/kg IBW) Protein (g): 92-110g (1.0-1.2 g/kg IBW) Fluid (ml): 1 ml/kcal Needs based on: Kcal/kg- (Comment) (IBW of 91.8kg) Recommended Access Route: TF Laboratory values: Recent Labs Component Name 05/30/24 0432 05/29/24 0042 05/29/24 0004 05/28/24 0446 05/26/24 0827 05/17/24 1024 03/13/24 0309 03/11/24 0400 03/10/24 1309 07/26/22 1653 12/24/19 0923 09/06/18 0318 09/04/18 0956 01/24/18 1542 01/24/18 1345 01/24/18 1247 01/24/18 0953 01/11/18 1548 11/09/17 1521 11/19/15 0923 BUN - 22 19 - 18 - 28* 23 - 11 14 9 - - - - 15 18 14 CREATININE 0.75 - 0.80 0.88 - 0.88 - 0.95 0.92 - 0.97 0.97 0.88 - - - - 0.9 0.95 0.93 NA 137 - 137 136 - - - - - - - - - - - - - 140 138 140 POTASSIUM 3.9 - 3.7 3.8 - 4.8 - 4.3 4.6 - 4.0 3.5 4.1 - - - - 4.1 - - K - - - - - - - - - - - - - - 5.2 6.1* 4.6 - 4.0 4.4 CL 104 - 102 103 - - - - - - - - - - - - - 102 100 106 CO2 - - 24 - 29 28 28 - - - - 27 30 26 GLU - - - - - - - - - - - - - - - - - - 86 105* GLUCOSE 127* - 107 112 - 127* - 167* 160* - 187* 141* 126* - - - - 81 - - CALCIUM 9.6 - 9.3 9.5 - 9.7 - 9.6 10.0 - 8.6 8.5 8.4* - - - - 9.6 9.7 9.2 PROT - - - - - - - - - - - - - - - - - 8.2 - 7.4 ALB - - - - - - - - - - - - - - - - - 3.8 - 4.1 TBILI - - - - - - - - - - - - - - - - - 0.7 - 0.3 ALKPHOS - - - - - 59 - 69 65 - 71 - 76 - - - - 56 - 49 ALT - - - - - 22 - 18 20 - 14 - 18 - - - - 13 - 14 AST - - - - - 15 - 15 16 - 14 - 17 - - - - 14 - 14 ANIONGAP 7 - 12 10 - 9 - 12 13 - - 7* 5* - - - - 15 - - BCR 28* - 28* 22 - - - - - - - - - - - - - 17 NOT APPLICABLE NOT APPLICABLE OSMOLALITY 289 - 288 285 - - - - - - - - - - - - - 290 - - AGRATIO - - - - - - - - - - - - - - - - - 0.9* - 1.2 EGFR >90 >90 >90 >90 - >90 - 89* >90 - 84 >60 >60 - - - - >60 - - EGFRAFR - - - - - - - - - - 97 >60 >60 - - - - - - - - = values in this interval not displayed. Medications: Current Facility-Administered Medications Medication 0.9% NaCl injection 3 mL And 0.9% NaCl injection 1-10 mL acetaminophen (Tylenol) tablet 650 mg albuterol (Proventil;Ventolin) (5 MG/ML) 0.5% nebulizer solution 2.5 mg albuterol-ipratropium (Duo-Neb) nebulizer solution 3 mL amLODIPine (Norvasc) tablet 10 mg aspirin chew tablet 81 mg atorvastatin (Lipitor) tablet 40 mg bisacodyl (Dulcolax) suppository 10 mg busPIRone (Buspar) tablet 5 mg clopidogrel (plaVIX) tablet 75 mg famotidine (Pepcid) tablet 20 mg folic acid (Folvite) tablet 1 mg heparin injection 5,000 Units iopamidol (Isovue 370) 76 % contrast polyethylene glycol 3350 (Miralax) packet 17 g senna-docusate (Senokot-S) tablet 1 tablet sodium phosphate rectal (Fleet Saline) enema 133 mL thiamine (Vitamin B-1) tablet 100 mg Skin/Wound: WDL Education needed: Stroke Nutrition Therapy Education Provided: Handout Provided (attached to MyChart) Nutrition Care Process (1) Nutrition Diagnostic Statement: Inadequate protein-energy intake related to:: decreased ability to consume or tolerate adequate food and/or fluids due to illness;swallowing difficulty as evidenced by:: oral intake less than .. (NPO) Nutrition Diagnostic Statement Progress: Nutrition problem continues Nutrition Intervention: Enteral nutrition: Monitoring: PO intake, BM, labs, meds, weight Evaluation: Nutrition Goal: Total intake will meet estimated nutrient needs Nutrition Goal Timeframe: Throughout stay Nutrition Goal Progress: Progressing toward goal Ana Hu MS, RD/RDN, LD Ascom: [id number] * Carmina Long, OT - 05/30/2024 2:30 PM CDT [facility] Physical Medicine and Rehabilitation Occupational Therapy Initial Re-Evaluation Note Patient: Yaya Vazquez Jr. Med Record Number: [id number] Date of : 1960 Age: [age] year old PPE worn by staff: gloves;mask - procedural PPE worn by patient: gown - patient, clean Re-eval with PT to progress pt towards functional goals Recommendations: Discharge OT Discharge Recommendations: Patient would benefit from therapy in OP Day program In addition to the 1:1 evaluation of the patient, additional eval time was spent completing the chart review prior to the assessment, completing the multidisciplinary plan of care and education plan post evaluation and communicating results of the eval to other treatment team members. Nurse contacted regarding patient status and/or discharge plan. Physician Orders: Evaluation and Treat Activity Level: as tolerated PRECAUTIONS: FALLS SAFETY DIAGNOSIS: Patient Active Problem List: CAD (coronary artery [...] cognition Problem with highly complex treatment regime Cerebrovascular accident (CVA), unspecified mechanism (HCC) H/O: CVA (cerebrovascular accident) Seizure-like activity (HCC) Basilar artery stenosis Past Medical History: Diagnosis Date Anemia 01/2018 Asthma (HCC) Chest congestion 08/05/2020 Confusional arousals 08/05/2020 Controlled type 2 diabetes mellitus without complication, without long-term current use of insulin ([facility]) 09/28/2011 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 Rest BP: 124/84 (96) HR: 78 Sp02 Sp02 99% RA Ex/Gait/Activity Without 02 BP: 124/85 (97) HR: 84 Sp02 Room Air Mental Status/Cognition: Level of Consciousness-Adult: Alert Orientation Level: Oriented to Person;Disoriented to Time;Oriented to Situation;Disoriented to Place Cognition: Follows Commands-Consistent;Processing-delayed;Attention/concentration-decreased Following Commands: Follows one step commands with increased time Problem Solving: Assistance required to identify errors made;Assistance required to implement solutions UE ROM: RUE: Pt noted to have hand shake/tremor like signs with movement of hand, unable to formally test LUE: AROM WFL Strength: RUE: WFL LUE: WFL UE Tone RUE: no abnormal tone noted LUE: no abnormal tone noted Coordination: unable to formally test due to hand tremors UE Proprioception RUE: WFL LUE: WFL UE Sensation RUE: intact LUE: intact Perception: Inattention/Neglect: Cues to attend left visual field Visual Motor Tracking: Able to track stimulus in all quads w/o difficulty Mobility: A gait belt and non-slip socks were used for all out of bed activity this date. Bed Mobility: Supine to Sit: Minimal Assistance;X 2 with HOB in high fowlers position Sit to Supine: Moderate Assistance;X 2 Transfers: Sit to Stand: Moderate Assistance;X 2 Stand to Sit: Moderate Assistance;X 2 Functional Ambulation: Pt attempts to take steps with therapy, max X 2 assist however foot does not clear floor, pt pivotslaterally with attempts. Balance: Balance Scales/Tests Used: Sitting: Static/Dynamic;Standing: Static/Dynamic Sitting - Static: Fair + Sitting - Dynamic: Fair Standing - Static: Poor +;With Both Upper Extremity's Support Standing - Dynamic: Poor;With Both Upper Extremity's Support Activities of Daily Living Feeding: Set-up;Requires Verbal Cues for Safety (to think thicken lemonade from cup) Oral Facial Hygiene: Set-up (for warm wash cloth in bed) Bathing: Activity Does Not Occur Upper Body Dressing: Minimal Assistance (for gown management throughout transfer) Lower Body Dressing: Maximal Assistance (for socks at the bed level) Toileting: Other (Comment) (purewick in place) Splint Issued/Checked: none ACTIVITY TOLERANCE: Activity Tolerance: Tolerates ADLs without rest breaks Modified [place]: Current Modified [place] Score: 5 AM-PAC 6 Clicks Daily Activity Raw Score:: 10 TREATMENT / EDUCATION / INTERVENTIONS: While performing OT, Patient and sister was instructed in:functional mobility training, self-care training, safety awareness/fall precautions , discharge planning Presented to patient who demonstrates Fair understanding of instructions given. INFORMED CONSENT TO TREATMENT: Plan of care including recommended therapy, goals and frequency, discussed with patient who understands and agrees to proceed. ASSESSMENT: Functional performance limited due to: limited activities of daily living, decreased functional mobility, decreased functional balance, decreased cognition , upper extremity functional impairments, decreased endurance and activity tolerance, and decreased coordination. Short Term Goals: Goal Formation With patient Patient will perform upper extremity dressing with minimal assist Patient will perform toileting with minimal assist Patient will perform supine to/from sit with minimal assist Patient will transfer sit to stand with minimal assist and X 2 Patient will perform bed to chair with minimal assist and X 2 Care Home Goal(s): Patient to discharge to appropriate next level of care. Plan: Patient continues to benefit from skilled therapy services. If patient is discharged from the facility, this note serves as a discharge summary if further occupational therapy visits did not occur. Refer to filed flowsheet for further details. Following therapy session, patient left in bed, with bed alarm on , with call light within reach, with family in room, with RNKeira aware, with fall mats in place. * Mary Ellis, PT - 05/30/2024 2:30 PM CDT [facility] Physical Medicine and Rehabilitation Physical Therapy Initial Evaluation Note Patient: Yaya Vazquze Jr. Med Record Number: [id number] Date of : 1960 Age: [age] year old PPE worn by staff: gloves;mask - procedural PPE worn by patient: gown - patient, clean Co Eval with OT due to medical complexity and unknown level of assist required. Re-evaluation indicated due to change in DC recommendation, improved mobility since last session Recommendations: Discharge PT Discharge Recommendations: Patient would benefit from therapy in OP Day program In addition to the 1:1 evaluation of the patient, additional eval time was spent completing the chart review prior to the assessment, completing the multidisciplinary plan of care and education plan post evaluation and communicating results of the eval to other treatment team members. Patient currently using michelle lift, wheelchair, hospital bed and has equipment at home. No equipment needs if d/c home. Nurse, Occupational Therapist , and Welfare Administrator contacted regarding patient status and/or discharge plan. Physician Orders: Evaluation and Treat PRECAUTIONS: Weight Bearing Status: (no WB restrictions) Activity Level: Activity as Tolerated DIAGNOSIS: Patient Active Problem List: CAD (coronary artery [...] type Hypoxia Staphylococcus aureus infection Cerebrovascular accident ([facility]) Dysphagia following cerebral infarction Impaired cognition Problem with highly complex treatment regime Cerebrovascular accident (CVA), unspecified mechanism ([facility]) H/O: CVA (cerebrovascular accident) Seizure-like activity ([facility]) Basilar artery stenosis Past Medical History: Diagnosis Date Anemia 01/2018 Asthma ([facility]) Chest congestion 08/05/2020 Confusional arousals 08/05/2020 Controlled type 2 diabetes mellitus without complication, without long-term current use of insulin ([facility]) 09/28/2011 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 Pt is agreeable to therapy session. demonstrates slowed and soft speech at times. PATIENT GOALS: Patient's Primary Concern: to improve strength, mobility Home Situation: Type of Residence: Private Residence Lives with:: Sister Steps to Enter: 1 Home Structure: Basement;One Story (chair lift to basement) Primary Bedroom: Basement Primary Bathroom: Basement Equipment at Home: Michelle Lift;Hospital Bed;Chair lift for stairs;Wheelchair-Standard Additional Information (PT): Pts sister present and reports PLOF information; she reports after ptsCVA in january 2024, pt DCd to SNF where he recieved PT 1 time over a few week period from what she knows. Pt/family did not believe this was enough therapy so pt DCd to his sisters house with michelle lift, WC, hospital bed, chair lift. She reports family transfers pt to wheelchair daily with use of michelle lift; was supposed to start HHPT but ended up hospitalized. Family concerned that pt did not getthe therapy he needed after insurance days were up at [facility]--was supposed to get more at SNF but doesnot believe he got the therapy he was supposed to there. Was using equipment to ambulate at rehab facility. Prior Level of Functioning: Prior Level of Function Mobility: (michelle lift to wheelchair with family assist) Fallen Within 6 Mos: 1 (at SNF) Have Help at Home?: Yes, there is help at home now Who assists you at home?: Friends/Family How often is assistance provided?: daily assist from family following CVA in january 2024; Activity at Home: (was ambulating with equipment at rehab per sisters report, however has been functionally using WC with michelle lift since DC) Pain Assessment: OBJECTIVE: At start of therapy session, patient found in bed and with bed alarm on. General Appearance: in bed in NAD; sister at bedside LDAs: IV's: Peripheral line, Purewick , and PEG Tube Edema: no edema noted in bilateral lower extremities Vitals: (*Assess the 3 levels of oxygen saturations both for room air and 02 unless rest on room air is 88% or less). Rest BP: 124/84 (96) HR: 78 Sp02 Sp02 99% RA Ex/Gait/Activity Without 02 BP: 124/85 (97) HR: 84 Sp02 Room Air Ex/Gait/Activity With 02 BP: HR: Sp02 L O2 Post Activity BP: 136/87 (101) HR: Sp02 Sp02 Room Air L O2 Observations: Vitals monitored throughout session. Pt without any SOB, dizziness, or signs/symptomsof distress. No episodes of unresponsiveness noted during session. Mental Status/Cognition: Orientation Level: Oriented to Person;Oriented to Place;Disoriented to Time (hospital with choices;not oriented to month or year.) Attention Span: Appears intact Safety Judgement: Decreased awareness of need for safety Awareness of Errors: Decreased awareness of deficits ROM: RLE: AROM WFL LLE: AROM WFL Strength: RLE: hip flexion 3/5, knee extension 3 to 3+/5, DF 3+/5 LLE: hip flexion 3+/5, knee extension 3+/5, DF 3+/5 Tone: Tremors noted to RUE. RLE: no abnormal tone noted LLE: no abnormal tone noted Coordination: RLE: impaired with heel to jacobs and toe taps LLE: delayed with toe taps and impaired with heel to jacobs Sensation: RLE: withdraws to pain LLE: withdraws to pain Perception: Visual Motor Mobility: A gait belt and non-slip socks were used for all out of bed activity this date. Bed Mobility: Rolling: Activity Does Not Occur Supine to Sit: Minimal assist;X2 (with HOB elevated) Sit to Supine: Moderate Assistance;X 2 (with HOB flat) Transfers: Stand to Sit: Moderate Assistance;X 2 Bed to Chair: Activity Does Not Occur (no chair present in room) Type of Transfer: (Is able to laterally scoot to HOB with min A x2 and increased time/multiple scoots) Transfer Device: Gait belt Gait: Weight Bearing Status: (no WB restrictions) Distance Ambulated (ft): (attempt weight shift and taking steps at side of bed; demos difficulty taking steps to L, able to take one step to R with R LE.) Ambulation: Assistive Device: Gait Belt Ambulation: Level of Assistance: Maximum Assistance;X 2 Comments: Pt comes to sitting EOB with increased time; able to initiate B LEs to side of bed and use UEs to assist with scooting hips. Assist needed for steadying at trunk and for centering hips oncesitting. Pt maintains sitting balance EOB x10 mins with close supervision for safety. He stands twice with assist x2 and cues for upright trunk position, hip extension, and knee extension. Pt given cues and assist to shift weight from side to side; demos difficulty advancing LEs and requires assistfrom therapists to take one step to foot of bed with R LE; unable to take step to HOB to L. Pt laterally scoots to HOB with cues for technique and assist before returning to bed (no chair in room, unable to locate recliner chair--RN aware and will look for chair/call for chair). Assist needed for BLEs into bed, trunk. ACTIVITY TOLERANCE: Patient's activity tolerance: fair to fair plus TREATMENT/INTERVENTIONS: evaluation, ROM, strengthening exercises, coordination exercises, bed mobility training, transfer training, gait training, balance activities, monitoring of vitals, and cognitive stimulation Modified [place]: Current Modified [place] Score: 5 AM-PAC 6 Clicks Mobility Raw Score:: 11 EDUCATION: While performing PT, Patient and sister were instructed in:functional mobility training,cognitive retraining, energy conservation, safety awareness/fall precautions , home exercise program, discharge planning, use of call light Presented to patient who demonstrates Fair understanding of instructions given. INFORMED CONSENT TO TREATMENT: Plan of care including recommended therapy, goals and frequency, discussed with patient who understands and agrees to proceed. ASSESSMENT: Patient would benefit from additional Physical Therapy sessions to achieve the following functionalgoals to enhance independence. Short Term Goals: Goal Formation With patient/family Patient will perform bed mobility with moderate assist Patient will transfer sit to/from stand with moderate assist Patient will transfer bed to/from chair with moderate assist Patient will ambulate 5 feet with moderate assist and X 2 Patient will propel wheelchair 50ft with minimal assist. Financial Solutions Advisor Goal(s): Patient to discharge to next level of outpatient care. Equipment Issued: gait belt Plan: Gait training Transfer training Assistive device training Endurance training Bed mobility training Balance training Energy conservation techniques Safety awareness Home exercise program training wheelchair mobility If patient is discharged from the facility, this note serves as a discharge summary if further physical therapy visits did not occur. Refer to filed flowsheet for further details. Following therapy session, patient left in bed, with bed alarm on , with call light within reach, with family in room, with Goldie SHARMA aware, with therapy cues visible on white board, with fall matsin place, all items within reach; RN aware of need for chair/michelle to chair . * Autumn Lafleur MSW - 05/30/2024 2:10 PM CDT Care Coordination Progress Note Anticipated level of care at discharge: Unknown: Anticipated level of care provider: None: : Discharge Plan: [facility] is following patient. Referral also sent to [facility]. Orientation Level: Oriented to Person;Oriented to Place;Oriented to Situation;Disoriented to Time: Family Support (Name and Phone): Extended Emergency Contact Information Primary Emergency Contact: Jenn Mckee (POA) [place] Mobile Relation: Sister Secondary Emergency Contact: Christi Vazquez Mobile Relation: Daughter Transportation at Discharge: : READMISSION RISK SCORE is 27 at 2:10 PM 05/30/2024.: Name: Autumn Lafleur, NOAH [phone] * Perfecto HatchROSE-CABLE FERRYBOAT OPERATOR - 05/30/2024 12:55 PM CDT NEUROLOGY PROGRESS NOTE 05/30/2024 at 12:55 PM HISTORY: History of Present Illness: 63 yom with repeated episodes of syncope lasting around 30 seconds. Was admitted to vascular neurology service where cEEG was negative for electrographic seizure activity/discharges, MRI brain wo contrast negative for acute infarct. Was placed on bordley list pending rehab placement with Cardiology, endovascular/interventional neurology, and general neurology outpatient follow up. On 05/28 in the evening, patient had another syncopal event similar to prior events. Code stroke called, CTH/CTA negative. Patient was transferred back to neuro floor. Interval History: No acute events overnight. Patient states he feels like he is back to his baseline. No further events. 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 CTA (05/29): 1.No acute intracranial hemorrhage. 2.No large arterial occlusions or significant stenoses identified in the head or neck. 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 4.Atherosclerotic disease of the extracranial and intracranial arteries as described above. 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 ASSESSMENT AND PLAN: Patient is a 63 yo male that has repeat episodes of syncope. Each lasting around 30 seconds. Most recent one occurred 05/29. He was transferred to neuro floor from [facility]. - New CTH and CTA show no acute findings - MRI confirm no new stroke (05/26) - EEG negative for seizure - Consulted Cardiology - TTE completed on 05/23 - Continue DAPT and Atorvastatin for secondary stroke prevention - Stat CTP for any change in neurological examination or new episodes of syncope - Head of bed > 30?? - Avoid hypoglycemia, hyponatremia, and hyperthermia - Sodium goals: normal range - BP Goal: less than 160 - Continue puree diet per ST; PT/OT - Will need follow up in Vascular neurology for moderate to severe stenosis of the proximal basilarartery without evidence of complete occlusion and LICA aneurysm. Case findings discussed with Dr. Coppola, Stroke attending. Perfecto Hatch APRN-CABLE FERRYBOAT OPERATOR 05/30/2024 12:55 PM Associated attestation - Jason Coppola MD - 05/30/2024 7:36 PM CDT NEUROVASCULAR SERVICE ATTESTATION The above note was reviewed. The patient was seen and examined. I saw and examined the patient with the resident and/or medical student and/or nurse practitioner. I have verified all details of the note and agree with his/her documentation with additions and modifications if listed below. Please refer to the resident's, medical student's, or nurse practitioner's note for plans of active problems not discussed below. 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 L sided weakness with subsequent return to baseline. He has a Hx of similar episodes unresponsiveness. 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 MRI with no acute infarct. EEG negative. - Continue ASA/Plavix and statin - Cardiology evaluation - Thyroid function testing - Stat CTP for any change in neurological examination or new episodes of syncope - OP Vascular neurology follow-up with Dr. Beltre regarding aneurysm/stenosis - Will need Epilepsy follow-up for further EMU monitoring to capture event if indicated - Dispo pending Date of Service: 05/30/24 Jason Coppola MD Problem List Essential hypertension (POA: Yes) Controlled type 2 diabetes mellitus without complication, without long-term current use of insulin (HCC) (POA: Yes) Altered mental status, unspecified altered mental status type (POA: Yes) Cerebrovascular accident (HCC) (POA: Yes) Cerebrovascular accident (CVA), unspecified mechanism (HCC) (POA: Yes) H/O: CVA (cerebrovascular accident) (POA: Yes) Seizure-like activity (HCC) (POA: Yes) Basilar artery stenosis (POA: Yes) See Resident note for the remaining problem specific plan. * Slim Guerra MD - 05/29/2024 4:07 PM CDT 63 yom with repeated episodes of syncope lasting around 30 seconds. Was admitted to vascular neurology service where cEEG was negative for electrographic seizure activity/discharges, MRI brain wo contrast negative for acute infarct. Was placed on bordley list pending placement with Cardiology, and e ndovascular/interventional neurology, and general neurology outpatient follow up. Overnight, patient had another syncopal event similar to prior events. Code stroke called, CTH/CTA negative. Examined on return to 5N floor. Exam back to baseline. 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 - STAT CTP for any further episodes Discussed with vascular neurology attending Dr. Abdon Guerra MD PGY-4 Neurology resident * Lamar Menendez, RN - 05/29/2024 2:56 PM CDT 1430 pt arrived to floor. Alert to self, stated he was at [facility]. NIH completed. Noother needs anticipated. 1924 end of shift report. Pt in bed sister JUDY Mixon at bedside. She was updated to plan of care today. Pt cooperative and compliant with medication, however refused at times to be repositioned and wedge support use. Explained to pt the benefits of having the wedges pt stated I don't want it, I don't like it . Otherwise uneventful day. * Lisa Hernandez, SCARLETT - 05/29/2024 2:43 PM CDT [facility] Physical Medicine and Rehabilitation Swallow Treatment Patient: Yaya Vazquez Jr. Med Record Number: [id number] Date of : 1960 Age: [age] year old PPE: PPE worn by staff: gloves PPE worn by patient: gown - patient, clean Impressions: Pt was assisted with eating late lunch. Pt tolerated puree consistency with Mildly Thick (2)/Ivins liquids with no overt s/s of aspiration. Increased A-P transit time observed for puree, with occasional lingual residue that cleared with liquid wash. Recommend continued Puree (4)/DYS1 diet with Mildly Thick (2)/Ivins liquids. Recommendations: Diet Liquids Recommendation: Mildly Thick (2)/ Ivins Thick Diet Solids Recommendation: Pureed (4)/Pureed Dys 1 Recommended Form of Meds: Crushed;With puree (or via PEG) Compensatory Swallowing Strategies: 90 Degrees elevation for all oral intake;One to one assist withmeals;Small bites/sips;Eat/Feed slowly;Feed patient only when alert Recommended Tests/Consults: Recommendations: Dysphagia Treatment Discharge Recommendations: Speech therapy is recommended to improve swallow function. SUBJECTIVE: Patient Goals: Pt wanted to eat lunch. Pain Assessment: Pain Location #1 Pain Rating Score #1: (Pt did not report pain) Sedation Level #1: 1-Awake and alert OBJECTIVE: Level of Consciousness: alert Pt answered basic questions and followed directives. Positioning: Upright in bed Respiratory Status: room air Swallow Trials: Ivins Thick Liquid: Presentation: Cup-Self Fed;Cup-Assisted (lidded cup with opening and cup edge) Oral: (mild spillage on right side) Pharyngeal: Decreased Laryngeal Elevation Puree: Presentation: Spoon-Assisted Oral: Increased Anterior to Posterior Transit;Delayed Initiation (mild oral residue cleared with liquid wash) Pharyngeal: Decreased Laryngeal Elevation;Delayed Swallow (no overt s/s of aspiration) Assessment: Risk For Aspiration: Mild Primary Diagnostic Impression - Oral: Mild Primary Diagnostic Impression - Pharyngeal: Mild;Moderate Treatment/Education/Interventions: While performing 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 PRESS PLATE SETTER, Patient was instructed in: diet/liquid recommendations and swallowing strategies/aspiration precautions. Patient demonstrated Good understanding of instructions given. Nurse contacted regarding results of treatment session. Guidelines were posted on Pt's whiteboard and head of bed: yes INFORMED CONSENT TO TREATMENT: Plan of care including recommended therapy, goals and frequency, discussed with patient who understands and agrees to proceed. Short Term Goals Patient will tolerate recommended food and liquid consistencies without clinical signs of aspiration., Patient will follow recommended swallowing strategies. Care Home Goal (s): Patient to be independent/baseline with swallow function and be able to safely discharge to prior level of care. Plan: Speech therapy for dysphagia treatment. * Rachell Luque OT - 05/29/2024 11:20 AM CDT [facility] Department of Physical Medicine & Rehabilitation Progress Note Patient: Yaya Vazquez JrAriel Med Record Number: [id number] Date of : 1960 Age: [age] year old 05/29/24 1119 Missed Visit Missed Visit MD Cancel (Pt being transferred back to main hospital for closer medical monitoring. Hold therapy today per MD.) * Abigail Lagunas, RN - 05/29/2024 8:45 AM CDT SITUATIONAL AWARENESS NOTE PATIENT'S NAME: Yaya Vazquez Jr. BIRTHDATE: 1960 CODE STATUS: Full Code PRIMARY CONCERN FOR SITUATIONAL AWARENESS: Rapid Response within the past 48 hours OBSERVATIONS: Pt resting quietly in bed. Visitors, primary RN, and MD at bedside. EKG being done. Pt was a code stroke overnight for decreased responsiveness. CT head negative. Neurology to provide recommendations and will be worked up by vascular and cardiology as well. VSS. No acute concerns brought forth by pharmacist in charge owner or physician. CALENDER MACHINE OPERATOR HELPER will continue to round and be available for questions or concerns. PLAN: Continue current plan as detailed in daily progress note. OUTCOME: Remains in current room ESCALATION PLAN: If patient begins to clinically deteriorate or there are any significant changes please call a rapid response. Plan discussed with - nursing, hand tube bender, hospitalist, and patient. Everyone is in agreement withthe plan. 7 minutes spent on patient assessment, review of relevant data, and documentation. * Devendra Overton RN - 05/29/2024 2:44 AM CDT Problem: General Goal: LTG - Patient will Outcome: Progressing Goal: STG - Patient will Outcome: Progressing Goal: STG - Patient will Outcome: Progressing Goal: STG - Patient will Outcome: Progressing Problem: Balance Goal: LTG - Patient will demonstrate Intervention to enhance balance for safe completion of daily activities Outcome: Progressing Goal: LTG - Patient will maintain balance Outcome: Progressing Goal: LTG - Patient will maintain balance to allow for safe mobility Outcome: Progressing Goal: LTG - Patient will maintain standing and sitting balance to allow for completion of daily activities Outcome: Progressing Goal: LTG - Patient will tolerate standing Outcome: Progressing Goal: STG - Maintains dynamic standing balance with upper extremity support. Outcome: Progressing Goal: STG - Maintains dynamic standing balance without upper extremity support. Outcome: Progressing Goal: STG - Maintains static standing balance with upper extremity support. Outcome: Progressing Goal: STG - Maintains static standing balance without upper extremity support. Outcome: Progressing Goal: STG - Maintains static sitting balance with upper extremity support. Outcome: Progressing Goal: STG - Maintains static sitting balance without upper extremity support. Outcome: Progressing Goal: STG - Maintains dynamic sitting balance with upper extremity support. Outcome: Progressing Goal: STG - Maintains dynamic sitting balance without upper extremity support. Outcome: Progressing Problem: Mobility Goal: LTG - Patient will be able to go up and down a curb/step with the appropriate device Outcome: Progressing Goal: LTG - Patient will propel wheelchair household/community distances Outcome: Progressing Goal: LTG - Patient will demonstrate kitchen mobility Outcome: Progressing Goal: LTG - Patient will recall and demonstrate 3 out of 3 total hip precautions during mobility Outcome: Progressing Goal: LTG - Patient will ambulate community distance Outcome: Progressing Goal: LTG - Patient will propel wheelchair household distances Outcome: Progressing Goal: LTG - Patient will ambulate household distance Outcome: Progressing Goal: Ped LTG - Child will crawl 50 feet independently. Outcome: Progressing Goal: Ped LTG - Patient will ambulate 150 feet independently. Outcome: Progressing Goal: LTG - Patient will navigate 4-6 steps with rails/device Outcome: Progressing Goal: LTG - Patient will demonstrate safe mobility requirements. Outcome: Progressing Goal: LTG - Patient will ascend and descend a flight of stairs Outcome: Progressing Goal: STG - Patient will propel the wheelchair Outcome: Progressing Goal: STG - Patient will ambulate Outcome: Progressing Goal: STG - Patient will ambulate up and down a curb/step Outcome: Progressing Goal: STG - Patient will ascend and descend four to six stairs Outcome: Progressing Goal: STG - Patient will ascend and descend a flight of stairs Outcome: Progressing Goal: STG - Patient is independent with home exercise program. Outcome: Progressing Goal: STG - Patient will tolerate ____ repetitions of exercises. Outcome: Progressing Problem: Safety Goal: LTG - Patient will adhere to hip precautions during ADL's and transfers Outcome: Progressing Goal: LTG - Patient will demonstrate safety requirements appropriate to situation/environment Outcome: Progressing Goal: LTG - Patient will utilize safety techniques Outcome: Progressing Goal: STG - Patient locks brakes on wheelchair Outcome: Progressing Goal: STG - Patient uses call light consistently to request assistance with transfers Outcome: Progressing Goal: STG - Patient uses gait belt during all transfers. Outcome: Progressing Problem: Transfers Goal: LTG - Patient will transfer to car Outcome: Progressing Goal: LTG - Patient will transfer from one surface to another Outcome: Progressing Goal: LTG - Patient will demonstrate safe transfer techniques Outcome: Progressing Goal: LTG - Patient will transfer to commode. Outcome: Progressing Goal: LTG - Patient will transfer to tub/shower Outcome: Progressing Goal: LTG - Patient will transfer from wheelchair to toilet Outcome: Progressing Goal: STG - Transfer from bed to chair Outcome: Progressing Goal: STG - Patient to transfer to and from sit to supine Outcome: Progressing Goal: STG - Patient will perform bed mobility Outcome: Progressing Goal: STG - Patient will roll Outcome: Progressing Goal: STG - Patient will transfer sit to and from stand Outcome: Progressing Goal: STG - Patient will perform car transfer Outcome: Progressing Goal: STG - Patient will perform toilet transfer Outcome: Progressing Goal: STG - Patient will perform tub/shower transfer Outcome: Progressing Goal: STG - Patient will follow hip precautions during transfers Outcome: Progressing Goal: Ped STG - Patient will follow precautions during transfers. Outcome: Progressing Goal: STG - Patient maintains weight bearing status during transfers Outcome: Progressing Problem: Pain/Discomfort Goal: LTG - Patient will manage pain with the appropriate technique/Intervention Outcome: Progressing Goal: LTG - Patient will demonstrate Intervention for managing pain. Outcome: Progressing Goal: STG - Patient will reduce or eliminate use of analgesics. Outcome: Progressing Goal: STG - Pain is manageable through therapies. Outcome: Progressing Goal: STG - Patient will verbalize an acceptable level of pain Outcome: Progressing Goal: STG - Patient's pain is managed to allow active participation in daily activities Outcome: Progressing Goal: STG - Patient will increase activity level. Outcome: Progressing Goal: STG - Patient verbalizes a reduction in pain level. Outcome: Progressing Goal: Ped - Patient verbalizes/demonstrates a reduction in pain level. Outcome: Progressing Problem: Communication/Dysarthria Goal: LTG - Patient will Outcome: Progressing * Devendra Overton RN - 05/29/2024 2:40 AM CDT Upon arrival to unit patient was transferred into room's hospital bed and was found to be unresponsive. His eyes were open but he would not answer questions or move. Code stroke was called and patient was repeatedly tested and sternal rub generated very faint response. MD's ordered CT scan and patient was brought down with neuro MD and code team. Patient returned to baseline, speaking and answering questions with mildly slurred speech. Once again scored 7 on NIHS and was returned to [facility] to sleep. * Madhu Rose MD - 05/29/2024 1:38 AM CDT Plan Of Care Subj: Transferred to [facility] On arrival to unit, patient unresponsive, 0/5 muscle strength in all extremities, HDS, breathing intact. Not responding to aggressive sternal rub. Code stroke called. On way to imaging patient began to move and returned to baseline. In no distress. Able to answer questions, appears to be Aox3 L eye nonreactive BL facial strength LUE decreased strength Poor coordination Slurs when speaking but is easily understandable Plan: 63 M transferred for episodes of unresponsiveness now s/p MRI, EEG, CTA. No further workup by Neurology inpatient needs op followup with Vascular, epilepsy, cardiology. -continue plan per prior team -Spoke with Stroke resident, would like recommendations from Neurology on if he has another episodeof unresponsiveness when should we assume it is part of his usual disease process and when should we call a code stroke Madhu Rose MD * Elina Lorenzana RN - 05/29/2024 12:33 AM CDT RAPID RESPONSE DOCUMENTATION NOTE PATIENT'S NAME: Yaya Vazquez Jr. BIRTHDATE: 1960 CODE STATUS: Full Code RAPID DATE: 05/29/24 RAPID TIME: 00:08 RAPID LOCATION: [facility] ADMITTING SERVICE: Jason Coppola MD PERSON(S) NOTIFIED: Person(s) Notified: The care team at bedside and Provider - MD Luisito Hayden PRIMARY REASON FOR CALL: Signs of stroke Staff concern OUTCOME: Remains in current room SUMMARY OF RAPID EVENTS: CALENDER MACHINE OPERATOR HELPER called for CODE STROKE. Upon arrival, patient is only responsive to painful stimuli. Per Primary RN, patient was A&Ox4 with some confusion prior to moving to [facility]. BP132/86 HR 81 SPO2 99% RA. Patient transferred to CT with CALENDER MACHINE OPERATOR HELPER and stoke team. Paged - 00:08 LKW - 23:35 1st slice -00:33 Glucose - 121 Loss of IV access prior to CT angio - sonosite required PIV placement delayed Cts 01:15 - CANCEL CODE STROKE PER MD LUISITO HAYDEN CALENDER MACHINE OPERATOR HELPER and primary RN transferred patient back to [facility] 75 minutes spent on patient assessment, review of relevant data, and documentation. * Krystal Padgett RN - 05/28/2024 11:45 PM CDT Problem: General Goal: LTG - Patient will Outcome: Progressing Goal: STG - Patient will Outcome: Progressing Goal: STG - Patient will Outcome: Progressing Goal: STG - Patient will Outcome: Progressing Problem: Balance Goal: LTG - Patient will demonstrate Intervention to enhance balance for safe completion of daily activities Outcome: Progressing Goal: LTG - Patient will maintain balance Outcome: Progressing Goal: LTG - Patient will maintain balance to allow for safe mobility Outcome: Progressing Goal: LTG - Patient will maintain standing and sitting balance to allow for completion of daily activities Outcome: Progressing Goal: LTG - Patient will tolerate standing Outcome: Progressing Goal: STG - Maintains dynamic standing balance with upper extremity support. Outcome: Progressing Goal: STG - Maintains dynamic standing balance without upper extremity support. Outcome: Progressing Goal: STG - Maintains static standing balance with upper extremity support. Outcome: Progressing Goal: STG - Maintains static standing balance without upper extremity support. Outcome: Progressing Goal: STG - Maintains static sitting balance with upper extremity support. Outcome: Progressing Goal: STG - Maintains static sitting balance without upper extremity support. Outcome: Progressing Goal: STG - Maintains dynamic sitting balance with upper extremity support. Outcome: Progressing Goal: STG - Maintains dynamic sitting balance without upper extremity support. Outcome: Progressing Report called to Clark for broadly patient packed up and transferred to [facility] via stretcher. Received called from daughter christi and room 7733 given to daughter who stated she will contact family. Heart station and told of patient moving. * Devendra Overton RN - 05/28/2024 11:29 PM CDT Attempted to receive report at 10PM but there was a dispute so it was delayed until 11:20PM The dispute was regarding the patient's poa requests that he not be transferred to [facility]. Sabrina MATUTE was informed of the conflicting preferences and she authorized the transfer anyway, citing that we do not honor refusals in internal lateral transfers. I received report and was informed that transport has been put in. Awaiting patient arrival. * Benjamin Martell RN - 05/28/2024 10:50 PM CDT Was told in report that family doesn't want pt moved to [facility], spoke with bed workforce planner and house sup, asked nurse to call family, no answer, pt will move to [facility], theres not a note or anything from dayshift with this information, unable to make contact with family. Ingrid SHARMA * Krystal Padgett RN - 05/28/2024 10:44 PM CDT Sister Jenn KIM called to notify of transfer to room 7705 message left with no return call. Daughter Christi also called and message left. * Autumn Lafleur MSW - 05/28/2024 1:46 PM CDT Care Coordination Progress Note Anticipated level of care at discharge: Unknown: Anticipated level of care provider: None: : Discharge Plan: SW spoke to patient's sister at bedside regarding patient's discharge plan. She would like to see if patient can receive some rehab before returning home. [facility]. Referrals sent. Orientation Level: Oriented to Person;Oriented to Place: Family Support (Name and Phone): Extended Emergency Contact Information Primary Emergency Contact: Jenn Mckee (POA) [place] Relation: Sister Secondary Emergency Contact: Christi Vazquez [place] Relation: Daughter Transportation at Discharge: : READMISSION RISK SCORE is 27 at 1:46 PM 05/28/2024.: Name: NOAH Jorge [phone] * Perfecto Hatch APRN-CABLE FERRYBOAT OPERATOR - 05/28/2024 1:17 PM CDT NEUROLOGY PROGRESS NOTE 05/28/2024 at 1:17 PM Admission Date: 05/25/2024 HISTORY: History of Present Illness: After a doctors appointment patient suddenly slumped over and was unresponsive for about 30 seconds. When he came around he was conversant and not confused, SBP was in the 80s. He was taken to [facility] for further workup. There on the morning of he was 05/25 he was not responding, not moving left side, eyes were open. Code stroke was called, CT with no acute changes. Ultimately decided notto proceed with TNK and was transferred to slu for further care *Per family he has been having these syncopal episode for many years. All last around 30 seconds and he returns back to baseline. Not associated with abnormal movements, or post-ictal state. 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 Of note, patient has a history of stroke (admitted 01/22 - 02/14) involving the left midbrain, left thalamus. Interval History: No acute events overnight. Stroke work up completed. 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 CTA: 1.No acute intracranial hemorrhage, midline shift, or significant mass effect. 2.Atherosclerotic disease of the extracranial and intracranial arterial vessels as outlined. 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 EEG: This is an abnormal cEEG due to mild generalized slowing. ASSESSMENT AND PLAN: Patient is a 63 yo male that has repeat episodes of syncope. Each lasting around 30 seconds. Most recent one occurred 05/25 while patient was at a doctors appointment. He was transferred her for further work up from [facility]. - MRI confirm no new stroke - EEG negative for seizure - Will need follow up in Vascular neurology for moderate to severe stenosis of the proximal basilarartery without evidence of complete occlusion and LICA aneurysm. - Follow up with Cardiology outpatient for possible cardiac reasons for syncope. - No further stroke work up - Continue DAPT and Atorvastatin for secondary stroke prevention - Stat CT head for any change in neurological examination - Head of bed > 30?? - Avoid hypoglycemia, hyponatremia, and hyperthermia - Sodium goals: normal range - BP Goal: less than 160 - Continue puree diet per ST; PT/OT Case findings discussed with Dr. Coppola, Stroke attending. Perfecto Hatch APRN-CABLE FERRYBOAT OPERATOR 05/28/2024 1:17 PM Associated attestation - Jason Coppola MD - 05/28/2024 10:09 PM CDT NEUROVASCULAR SERVICE ATTESTATION The above note was reviewed. The patient was seen and examined. I saw and examined the patient with the resident and/or medical student and/or nurse practitioner. I have verified all details of the note and agree with his/her documentation with additions and modifications if listed below. Please refer to the resident's, medical student's, or nurse practitioner's note for plans of active problems not discussed below. 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 L sided weakness with subsequent return to baseline. He has a Hx of similar episodes unresponsiveness. 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 MRI with no acute infarct. EEG negative. - Continue ASA/Plavix and statin - Dispo - PT/OT home health - OP Vascular neurology follow-up regarding aneurysm/stenosis - OP Epilepsy follow-up for further EMU monitoring to capture event if indicated - OP cardiology follow-up Date of Service: 05/28/24 Jason Coppola MD Problem List Essential hypertension (POA: Yes) Controlled type 2 diabetes mellitus without complication, without long-term current use of insulin (HCC) (POA: Yes) Altered mental status, unspecified altered mental status type (POA: Yes) Cerebrovascular accident (HCC) (POA: Yes) Cerebrovascular accident (CVA), unspecified mechanism (HCC) (POA: Yes) H/O: CVA (cerebrovascular accident) (POA: Yes) Seizure-like activity (HCC) (POA: Yes) Basilar artery stenosis (POA: Yes) See Resident note for the remaining problem specific plan. * Mary Novak, Graduate Nurse - 05/28/2024 11:17 AM CDT Problem: Pain/Discomfort Goal: LTG - Patient will manage pain with the appropriate technique/Intervention Outcome: Progressing Goal: LTG - Patient will demonstrate Intervention for managing pain. Outcome: Progressing Goal: STG - Patient will reduce or eliminate use of analgesics. Outcome: Progressing Goal: STG - Pain is manageable through therapies. Outcome: Progressing Goal: STG - Patient will verbalize an acceptable level of pain Outcome: Progressing Goal: STG - Patient's pain is managed to allow active participation in daily activities Outcome: Progressing Goal: STG - Patient will increase activity level. Outcome: Progressing Goal: STG - Patient verbalizes a reduction in pain level. Outcome: Progressing * Richa Das SLP - 05/28/2024 9:26 AM CDT [facility] Department of Physical Medicine & Rehabilitation Progress Note Patient: Yaya Vazquez Jr. Med Record Number: [id number] Date of : 1960 Age: [age] year old 05/28/24 0926 Missed Visit Missed Visit Case management at the bedside speaking with family at time of visit, will attempt to follow up later today if schedule allows. Richa Bourgeois M.S., [facility]-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 PRESS PLATE SETTER Speech Language Pathologist [phone] * Anai Love RN - 05/27/2024 10:34 PM CDT Problem: General Goal: LTG - Patient will Outcome: Progressing Goal: STG - Patient will Outcome: Progressing Goal: STG - Patient will Outcome: Progressing Goal: STG - Patient will Outcome: Progressing Problem: Balance Goal: LTG - Patient will demonstrate Intervention to enhance balance for safe completion of daily activities Outcome: Progressing Goal: LTG - Patient will maintain balance Outcome: Progressing Goal: LTG - Patient will maintain balance to allow for safe mobility Outcome: Progressing Goal: LTG - Patient will maintain standing and sitting balance to allow for completion of daily activities Outcome: Progressing Goal: LTG - Patient will tolerate standing Outcome: Progressing Goal: STG - Maintains dynamic standing balance with upper extremity support. Outcome: Progressing Goal: STG - Maintains dynamic standing balance without upper extremity support. Outcome: Progressing Goal: STG - Maintains static standing balance with upper extremity support. Outcome: Progressing Goal: STG - Maintains static standing balance without upper extremity support. Outcome: Progressing Goal: STG - Maintains static sitting balance with upper extremity support. Outcome: Progressing Goal: STG - Maintains static sitting balance without upper extremity support. Outcome: Progressing Goal: STG - Maintains dynamic sitting balance with upper extremity support. Outcome: Progressing Goal: STG - Maintains dynamic sitting balance without upper extremity support. Outcome: Progressing Problem: Mobility Goal: LTG - Patient will be able to go up and down a curb/step with the appropriate device Outcome: Progressing Goal: LTG - Patient will propel wheelchair household/community distances Outcome: Progressing Goal: LTG - Patient will demonstrate kitchen mobility Outcome: Progressing Goal: LTG - Patient will recall and demonstrate 3 out of 3 total hip precautions during mobility Outcome: Progressing Goal: LTG - Patient will ambulate community distance Outcome: Progressing Goal: LTG - Patient will propel wheelchair household distances Outcome: Progressing Goal: LTG - Patient will ambulate household distance Outcome: Progressing Goal: Ped LTG - Child will crawl 50 feet independently. Outcome: Progressing Goal: Ped LTG - Patient will ambulate 150 feet independently. Outcome: Progressing Goal: LTG - Patient will navigate 4-6 steps with rails/device Outcome: Progressing Goal: LTG - Patient will demonstrate safe mobility requirements. Outcome: Progressing Goal: LTG - Patient will ascend and descend a flight of stairs Outcome: Progressing Goal: STG - Patient will propel the wheelchair Outcome: Progressing Goal: STG - Patient will ambulate Outcome: Progressing Goal: STG - Patient will ambulate up and down a curb/step Outcome: Progressing Goal: STG - Patient will ascend and descend four to six stairs Outcome: Progressing Goal: STG - Patient will ascend and descend a flight of stairs Outcome: Progressing Goal: STG - Patient is independent with home exercise program. Outcome: Progressing Goal: STG - Patient will tolerate ____ repetitions of exercises. Outcome: Progressing Problem: Safety Goal: LTG - Patient will adhere to hip precautions during ADL's and transfers Outcome: Progressing Goal: LTG - Patient will demonstrate safety requirements appropriate to situation/environment Outcome: Progressing Goal: LTG - Patient will utilize safety techniques Outcome: Progressing Goal: STG - Patient locks brakes on wheelchair Outcome: Progressing Goal: STG - Patient uses call light consistently to request assistance with transfers Outcome: Progressing Goal: STG - Patient uses gait belt during all transfers. Outcome: Progressing Problem: Transfers Goal: LTG - Patient will transfer to car Outcome: Progressing Goal: LTG - Patient will transfer from one surface to another Outcome: Progressing Goal: LTG - Patient will demonstrate safe transfer techniques Outcome: Progressing Goal: LTG - Patient will transfer to commode. Outcome: Progressing Goal: LTG - Patient will transfer to tub/shower Outcome: Progressing Goal: LTG - Patient will transfer from wheelchair to toilet Outcome: Progressing Goal: STG - Transfer from bed to chair Outcome: Progressing Goal: STG - Patient to transfer to and from sit to supine Outcome: Progressing Goal: STG - Patient will perform bed mobility Outcome: Progressing Goal: STG - Patient will roll Outcome: Progressing Goal: STG - Patient will transfer sit to and from stand Outcome: Progressing Goal: STG - Patient will perform car transfer Outcome: Progressing Goal: STG - Patient will perform toilet transfer Outcome: Progressing Goal: STG - Patient will perform tub/shower transfer Outcome: Progressing Goal: STG - Patient will follow hip precautions during transfers Outcome: Progressing Goal: Ped STG - Patient will follow precautions during transfers. Outcome: Progressing Goal: STG - Patient maintains weight bearing status during transfers Outcome: Progressing Problem: Pain/Discomfort Goal: LTG - Patient will manage pain with the appropriate technique/Intervention Outcome: Progressing Goal: LTG - Patient will demonstrate Intervention for managing pain. Outcome: Progressing Goal: STG - Patient will reduce or eliminate use of analgesics. Outcome: Progressing Goal: STG - Pain is manageable through therapies. Outcome: Progressing Goal: STG - Patient will verbalize an acceptable level of pain Outcome: Progressing Goal: STG - Patient's pain is managed to allow active participation in daily activities Outcome: Progressing Goal: STG - Patient will increase activity level. Outcome: Progressing Goal: STG - Patient verbalizes a reduction in pain level. Outcome: Progressing Goal: Ped - Patient verbalizes/demonstrates a reduction in pain level. Outcome: Progressing Problem: Communication/Dysarthria Goal: LTG - Patient will Outcome: Progressing * Perfecto Hatch APRN-AZEB - 05/27/2024 12:17 PM CDT NEUROLOGY PROGRESS NOTE 05/27/2024 at 12:17 PM Admission Date: 05/25/2024 HISTORY: History of Present Illness: After a doctors appointment patient suddenly slumped over and was unresponsive for about 30 seconds. When he came around he was conversant and not confused, SBP was in the 80s. He was taken to [facility] for further workup. There on the morning of he was 05/25 he was not responding, not moving left side, eyes were open. Code stroke was called, CT with no acute changes. Ultimately decided notto proceed with TNK and was transferred to slu for further care *Per family he has been having these syncopal episode for many years. All last around 30 seconds and he returns back to baseline. Not associated with abnormal movements, or post-ictal state. 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 Of note, patient has a history of stroke (admitted 01/22 - 02/14) involving the left midbrain, left thalamus. Interval History: No acute events overnight. MRI and EEG completed. 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 CTA: 1.No acute intracranial hemorrhage, midline shift, or significant mass effect. 2.Atherosclerotic disease of the extracranial and intracranial arterial vessels as outlined. 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 EEG: This is an abnormal cEEG due to mild generalized slowing. ASSESSMENT AND PLAN: Patient is a 63 yo male that has repeat episodes of syncope. Each lasting around 30 seconds. Most recent one occurred 05/25 while patient was at a doctors appointment. He was transferred her for further work up from [facility]. - MRI confirm no new stroke - EEG negative for seizure - Will need follow up in Vascular neurology for moderate to severe stenosis of the proximal basilarartery without evidence of complete occlusion. - Follow up with Cardiology outpatient for possible cardiac reasons for syncope. - No further stroke work up - Continue DAPT and Atorvastatin for secondary stroke prevention - Stat CT head for any change in neurological examination - Head of bed > 30?? - Avoid hypoglycemia, hyponatremia, and hyperthermia - Sodium goals: normal range - BP Goal: less than 160 - Continue puree diet per ST; PT/OT Case findings discussed with Dr. Coppola, Stroke attending. Perfecto Hatch APRN-CABLE FERRYBOAT OPERATOR 05/27/2024 12:17 PM Associated attestation - Jason Coppola MD - 05/27/2024 8:20 PM CDT NEUROVASCULAR SERVICE ATTESTATION The above note was reviewed. The patient was seen and examined. I saw and examined the patient with the resident and/or medical student and/or nurse practitioner. I have verified all details of the note and agree with his/her documentation with additions and modifications if listed below. Please refer to the resident's, medical student's, or nurse practitioner's note for plans of active problems not discussed below. 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 L sided weakness with subsequent return to baseline. He has a Hx of similar episodes unresponsiveness. 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 MRI with no acute infarct. EEG negative. - Continue ASA/Plavix and statin - Dispo - PT/OT home health - OP Vascular neurology follow-up regarding aneurysm/stenosis - OP Epilepsy follow-up for further EMU monitoring to capture event if indicated - OP cardiology follow-up Date of Service: 05/27/24 Jason Coppola MD Problem List Essential hypertension (POA: Yes) Controlled type 2 diabetes mellitus without complication, without long-term current use of insulin (HCC) (POA: Yes) Altered mental status, unspecified altered mental status type (POA: Yes) Cerebrovascular accident (HCC) (POA: Yes) Cerebrovascular accident (CVA), unspecified mechanism (HCC) (POA: Yes) H/O: CVA (cerebrovascular accident) (POA: Yes) Seizure-like activity (HCC) (POA: Yes) Basilar artery stenosis (POA: Yes) See Resident note for the remaining problem specific plan. * Richa Das, SCARLETT - 05/27/2024 11:53 AM CDT [facility] Physical Medicine and Rehabilitation Swallow Treatment Patient: Yaya Vazquez Jr. Med Record Number: [id number] Date of : 1960 Age: [age] year old PPE: PPE worn by staff: gloves;mask - procedural PPE worn by patient: gown - patient, clean Impressions: 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 PRESS PLATE SETTER returned to the bedside for repeat assessment given MD request as Pt was more awake/alert. Pt able to report baseline diet of puree with nectar thickened liquids prior to admission and appeared to tolerate trials given no clinical signs of aspiration. Will recommend advancing Pt back to a Pureed (4)/Dys 1 diet with Mildly Thick (2)/Ivins while following aspiration precautions listed below. 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 PRESS PLATE SETTER will continue to follow during inpatient stay for diet tolerance. Recommendations: Diet Liquids Recommendation: Mildly Thick (2)/ Ivins Thick Diet Solids Recommendation: Pureed (4)/Pureed Dys 1 Recommended Form of Meds: Crushed;With puree (or via PEG) Compensatory Swallowing Strategies: 90 Degrees elevation for all oral intake;One to one assist withmeals;Small bites/sips;Eat/Feed slowly Recommended Tests/Consults: Recommendations: Dysphagia Treatment Discharge Recommendations: Home health 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 PRESS PLATE SETTER Speech therapy is recommended to monitor Pt's swallow function. SUBJECTIVE: Patient Goals:None stated Pt denied pain OBJECTIVE: Level of Consciousness: alert Positioning: Upright in bed Respiratory Status: room air Swallow Trials: Ivins Thick Liquid: Presentation: Cup-Self Fed Oral: Within Functional Limits Pharyngeal: Decreased Laryngeal Elevation Puree: Presentation: Spoon-Assisted Oral: Increased Anterior to Posterior Transit Pharyngeal: Decreased Laryngeal Elevation;Delayed Swallow Assessment: Risk For Aspiration: Mild Primary Diagnostic Impression - Oral: Mild Primary Diagnostic Impression - Pharyngeal: Mild Treatment/Education/Interventions: While performing 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 PRESS PLATE SETTER, Patient was instructed in: results of swallow evaluation and diet/liquid recommendations. Patient demonstrated Fair understanding of instructions given. WELT POCKET MACHINE OPERATOR-CAREER INFORMATION SPECIALIST contacted regarding results of treatment session. INFORMED CONSENT TO TREATMENT: Plan of care including recommended therapy, goals and frequency, discussed with patient who understands and agrees to proceed. Short Term Goals Patient will tolerate recommended food and liquid consistencies without clinical signs of aspiration. Care Home Goal (s): Patient to be independent/baseline with functional mobility and self care and be able to safely discharge to prior level of care. Plan: Advance to a Pureed (4)/Dys 1 diet with Mildly Thick (2)/Ivins , 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 PRESS PLATE SETTER will follow during inpatient stay for diet tolerance. Richa Bourgeois M.S., [facility]-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 PRESS PLATE SETTER Speech Language Pathologist [phone] * Richa Das SLP - 05/27/2024 9:20 AM CDT [facility] Physical Medicine and Rehabilitation Bedside Swallow Assessment Patient: Yaya Vazquez JrAriel Med Record Number: [id number] Date of : 1960 Age: [age] year old Patient Active Problem List: CAD (coronary artery [...] cognition Problem with highly complex treatment regime Cerebrovascular accident (CVA), unspecified mechanism ([facility]) H/O: CVA (cerebrovascular accident) Seizure-like activity ([facility]) Basilar artery stenosis Past Medical History: Diagnosis Date Anemia 01/2018 Asthma ([facility]) Chest congestion 08/05/2020 Confusional arousals 08/05/2020 Controlled type 2 diabetes mellitus without complication, without long-term current use of insulin ([facility]) 09/28/2011 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 PPE: PPE worn by staff: gloves;mask - procedural PPE worn by patient: gown - patient, clean Impressions: Pt presents with suspected degree of pharyngeal dysphagia with delayed cough followingtrials of ice chips and puree during today's assessment. Pt also considerably drowsy during visit with need for frequent verbal and tactile cues to stay awake/alert during PO trials. Will recommend Pt remain NPO with TF's via his existing PEG with plan for ongoing assessment. Recommendations: Diet Liquids Recommendation: NPO Diet Solids Recommendation: NPO Recommended Form of Meds: NPO;Feeding Tube Recommended Tests/Consults: Recommendations: NPO;With Alternative Nutrition;Dysphagia Treatment Discharge Recommendations: ongoing home health services Speech therapy is recommended to improve swallow function. SUBJECTIVE: Patient Goals: I've got to go Pain Assessment: Pt observed shaking his head no when asked about pain OBJECTIVE: Level of Consciousness: drowsy Orientation Level: oriented to person and place Positioning: Upright in bed Respiratory Status: room air Oral/Motor: Dentition: Normal Oral Hygiene : Within Functional Limits Labial/Facial: Within Functional Limits Tongue: Within Functional Limits Vocal Quality: Impaired Velopharyngeal Status: Impaired Oral Motor Coordination: Impaired Controls Secretions: Yes Swallow Trials: Ice chips: Presentation: Spoon-Assisted Oral: Impaired Mastication;Increased Anterior to Posterior Transit Pharyngeal: Delayed Swallow;Cough - Delayed Ivins Thick Liquid: Presentation: Cup-Self Fed Oral: Within Functional Limits Pharyngeal: Delayed Swallow;Decreased Laryngeal Elevation Puree: Presentation: Spoon-Assisted Oral: Increased Anterior to Posterior Transit;Delayed Initiation Pharyngeal: Delayed Swallow;Decreased Laryngeal Elevation;Cough - Delayed Assessment: Risk For Aspiration: Moderate Primary Diagnostic Impression - Oral: Mild Primary Diagnostic Impression - Pharyngeal: Mild;Moderate Education/Interventions: While performing 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 PRESS PLATE SETTER, Patient was instructed in: results of swallow evaluation and goals of treatment . Patient demonstrated Poor understanding of instructions given. INFORMED CONSENT TO TREATMENT: Plan of care including recommended therapy, goals and frequency, discussed with patient who understands and agrees to proceed. Short Term Goals Patient will demonstrate an improvement in oropharyngeal swallow function to warrant diet upgrade. Financial Solutions Advisor Goal (s): Patient to be independent/baseline with functional mobility and self care and be able to safely discharge to prior level of care. Plan: Continue NPO status with plan for ongoing 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 PRESS PLATE SETTER assessment Richa Bourgeois M.S., CCC-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 PRESS PLATE SETTER Speech Language Pathologist [phone] * Mervin Markham - 05/27/2024 8:27 AM CDT Stroke Service Daily Progress Note Yaya Vazquez JrAriel Age: [age] year old Date of : 1960 Date of Admission: 05/25/2024 Hospital Day: 2 Subjective Patient is a 63 year old male who presented for an episode of unresponsiveness with L sided weakness, admitted for concern for stroke/TIA at [place] on 05/22 and transferred to [facility] on 05/25. Date last known well: 05/22/24 The NIHSS score was 35 (baseline 8) . 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 Patient was briefly febrile yesterday evening between [id number] however the fever had resolved w/o intervention by later in the evening (Tm - 101.1F) withblood pressures ranging from 100s-140s/70s. The pt states he rested well last night, and he feels as if he is back to his baseline. Pt has no concerns or complaints at this time. Objective Patient Vitals for the past 24 hrs: BP Temp Temp src Pulse Resp SpO2 Height Weight 05/27/24 0405 108/70 99.7 ??F (37.6 ??C) Oral 87 -- 97 % -- -- 05/26/24 2349 109/74 99.8 ??F (37.7 ??C) Oral 49 -- 100 % -- -- 05/26/24 195 121/74 (!) 101.1 ??F (38.4 ??C) Oral 102 -- 91 % -- -- 05/26/24 1722 145/78 (!) 100.7 ??F (38.2 ??C) Oral 83 -- 96 % -- -- 05/26/24 1400 122/71 -- -- 84 19 97 % -- -- 05/26/24 1300 122/75 -- -- 80 12 97 % -- -- 05/26/24 1200 109/72 99.4 ??F (37.4 ??C) Oral 80 26 96 % -- -- 05/26/24 1100 138/86 -- -- 88 25 (!) 89 % -- -- 05/26/24 1000 122/78 -- -- 74 26 99 % -- -- 05/26/24 0939 138/86 98.7 ??F (37.1 ??C) Axillary 77 26 -- 1.93 m (6' 4 ) 129 kg (284 lb 6.3 oz) 05/26/24 0900 138/86 -- -- 77 26 98 % -- -- Intake/Output Summary (Last 24 hours) at 05/27/2024 08 Last data filed at 05/27/2024 0507 Gross per 24 hour Intake 0 ml Output 700 ml Net -700 ml Exam: Cortical Function Mental Status Awake, alert, follows commands Orientation Person, place, time, and situation Language Fluency intact, comprehension intact, repetition intact Visual [place] Intact bilaterally to confrontation Neglect No visual neglect noted, no tactile neglect noted Cranial Nerves II Pupils 4mm on the L and 3mm on the R, the R eye is reactive to light, but not the L eye. Fundoscopic exam not performed. VIII Hearing is intact bilaterally to finger rub. III/IV/ R eye is down and out with weakness of adduction and superior gaze. No diplopia, ptosis, or nystagmus noted. IX/X Palate elevated symmetrically without phonation abnormalities noted. V Facial sensation symmetric to light touch and intact bilaterally. Corneal reflex not examined. XIHead turning and shoulder shrug are intact. VII R UMN facial droop XII Tongue is midline with normal movements and no atrophy noted. Motor Function Movement Intention tremor of the L>R hand Bulk No abnormalities noted Tone No abnormalities noted Proximal Upper Distal Upper Proximal Lower Distal Lower Right 4/5 4/5 4/5 4/5 Left 5/5 5/5 5/5 5/5 Muscle Stretch Reflexes BI TRI BR PAT ACH TOES Right 2 2 2 2 0 Down Left 2 2 2 2 0 Down Sensory Light Touch Intact bilaterally, heavier on the R Noxious Stimuli Symmetric and intact bilaterally Temperature Not tested Pallesthesia Not tested Cerebellar FNF JEANNE HKS Right Moderate intention tremor & dysmetria Deferred Intact Left Mild intention tremor & dysmetria Deferred Intact Gait Deferred Imaging: CTA BRAIN AND NECK Result Date: 05/27/2024 IMPRESSION: 1.No acute intracranial hemorrhage, midline shift, or significant mass effect. 2.Atherosclerotic disease of the extracranial and intracranial arterial vessels as outlined. 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 4.Moderate to severe stenosis of the proximal basilar artery without evidence of complete occlusion MRI BRAIN W/O CONTRAST Result Date: 05/27/2024 IMPRESSION: No acute intracranial abnormality including acute infarct, hemorrhage, or midline shift EEG Result Date: 05/27/2024 IMPRESSION: This is an abnormal cEEG due to mild generalized slowing. CT ANGIO HEAD AND NECK Result Date: 05/25/2024 IMPRESSION: 1. No central large vessel arterial occlusion in the brain. Multifocal arterial stenosis as described below, consider MRI follow-up if clinically indicated. 2. No hemodynamically significant carotid stenosis. Nascet criteria utilized for interpretation. There is evidence of bilateral common and internal carotid atherosclerosis, but no significant stenosis. 3. Atherosclerosis of the internal carotid arteries bilaterally with severe stenosis of the right intracranial internal carotid and moderate stenosis of the left. Supraclinoid portion of the left internal carotid artery demonstrates fusiform dilatation measuring up to 5.2 mm. 4. Moderate stenosis of the inferior aspect of the basilar artery, without evidence of occlusion. 5. A1 segment of the right anterior cerebral artery is absent, the A2 segment is fed through a widely patent anterior communicating artery. 6. Moderate stenosis of the left vertebral artery origin and severe stenosis of the right vertebral artery origin. Referred By: Interpreted By: Aaron Edwards MD, 05/25/2024 11:[address] Head Wo Contrast Result Date: 05/25/2024 IMPRESSION: No acute findings Ordered By: BROOKE HANSON Interpreted By: Jayden Addison MD, 05/25/2024 10:[address] Head Wo Contrast Result Date: 05/23/2024 IMPRESSION: Image quality is degraded by motion artifact, limiting the sensitivity of this exam. Within this limitation, no definite acute intracranial abnormalities identified. Senescent changes of global volume loss noted. Ordered By: DOMINGO REYES Interpreted By: Mark Combs MD, 05/23/2024 7:35 PM ECHO done 05/23 The left ventricular size is normal. Estimated left ventricular ejection fraction is 70%. Mild concentric left ventricular hypertrophy. There is mild hypokinesis of the mid to basal inferolateral wall and the basal inferior wall.. The agitated saline injection showed no clear evidenceof shunting into the left atrium, consistent with no patent foramen ovale. Aortic root is moderately dilated, 4.4cm. Ascending aorta is moderately dilated, 4.4cm. Mild aortic regurgitation. HbA1c Done 05/22 at outside facility was 7.1 WBC New leukocytosis at 13.8 Labs: Reviewed. Assessment Yaya Vazquez Jr. is a 63 year old male presenting for an episode of unresponsiveness likely syncope given lack of evidence for new stroke and sz on CTA, MRI, and EEG . Plan TIA/Stroke Workup; active - Pt is cleared for d/c - F/u with neurology and cardiology outpatient Blood Pressure Goals: Stroke/TIA without tPA < 220/120 Ischemic Pre-tPA <185/110 Ischemic Post-tPA < 180/105 Hemorrhagic/MT < 140/90 (If MT, clarify with vascular fellow) LDAs: PEG and PIV Core Measures tPA administration: no Anti-platlet: Continue ASA 81mg and Plavix 75mg DVT prophylaxis: SCD's Statin: Continue atorvastatin 40mg PT/OT Evaluation: recommended d/c with home health Individual Modifiable Risk Factors Hypertension: yes Hyperlipidemia: yes Diabetes: yes Atrial Fibrillation: no Tobacco: yes Case findings discussed with Dr. Coppola, Stroke Attending/Endovascular Fellow Mervin Markham, MS3 * Anai Love RN - 05/26/2024 11:15 PM CDT Problem: Balance Goal: LTG - Patient will maintain balance to allow for safe mobility Outcome: Progressing Problem: Pain/Discomfort Goal: LTG - Patient will manage pain with the appropriate technique/Intervention Outcome: Progressing * Diana Murphy - 05/26/2024 1:26 PM CDT Images from the original note were not included. [facility] Consult Note Yaya Vazquez Jr. Age: [age] year old Date of : 1960 Date of Admission: 05/25/2024 Hospital Day: 1 Subjective History of Present Illness Yaya Vazquez Jr. 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 Also has hx of CAD s/p CABG, obesity, HTN, HLD, DM II. On 05/22 presented to OSH after an episode of slumping over in his wheelchair and was unresponsive for about 30 seconds. When he came to, he was conversant and not confused and SPB was in the 80s. At OSH on 05/25, he was not responding, not moving left side and code stroke was called. CTHshowed no acute changes. Decided not to proceed with TNK and transferred to [facility] d/t artery stenosishx. He had no acute overnight events. Today (05/26) he is at baseline, spontaneously moving left and right sides. Past Medical history: Past Medical History: Diagnosis Date Anemia 01/2018 Asthma ([facility]) Chest congestion 08/05/2020 Confusional arousals 08/05/2020 Controlled type 2 diabetes mellitus without complication, without long-term current use of insulin ([facility]) 09/28/2011 Coronary artery disease involving teller heart with angina pectoris ([facility]) 09/04/2018 Cough syncope 2018 Daytime sleepiness [...] Wound of sternal region 02/23/2018 Past Surgical history: Past Surgical History: Procedure Laterality Date ANGIOPLASTY COLONOSCOPY N/A 11/12/2020 N/A; COLONOSCOPY SCREEN Coronary Artery Bypass Graft N/A 01/24/2018 N/A; Coronary artery bypass graft x 3 ENDOSCOPY, UPPER N/A 01/30/2024 N/A; ESOPHAGOGASTRODUODENOSCOPY (EGD) WITH PEG PLACEMENT ENDOSCOPY, UPPER N/A 03/17/2024 N/A; ESOPHAGOGASTRODUODENOSCOPY (EGD) WITH PEG PLACEMENT Tonsillectomy Current medications: No current facility-administered medications on file prior to encounter. Current Outpatient Medications on File Prior to Encounter Medication Sig Dispense Refill acetaminophen (Tylenol) 325 [...] tablet by Enteral Tube route once daily Allergy Allergies Allergen Reactions Lisinopril Angioedema Lisinopril Other and Urticaria Hives Penicillins Other and Urticaria Hives Pcn [Penicillins] Swelling eyes swelled shut 50 years ago Penicillin V Rash Family History Family History Problem Relation Name Age of Onset Hypertension Father <65 CAD (Coronary Artery Disease) Father <65 Cancer - Ovarian Mother 60s None Known Sister Diabetes - Type 2 Sister Social History Social History Socioeconomic History Marital status: Legally Number of children: 1 Years of education: 16 Highest education level: Bachelor's degree (e.g., BA, AB, BS) Occupational History 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 [employer] 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 [employer] Tobacco Use Smoking status: Former Types: Cigars Start date: 1997 Smokeless tobacco: Never Tobacco comments: 3-4 times / month-2019 says 1x/month Vaping Use Vaping Use: Never used Substance and Sexual Activity Alcohol use: Not Currently Alcohol/week: 10.0 standard drinks of alcohol Types: 10 Standard drinks or equivalent per week Comment: 0-50+ a week Drug use: Not Currently Types: Marijuana Sexual activity: Not Currently Social History Narrative Merged History Encounter Lives in apartment alone Pets none Hobby watch tv, golf Review of Systems See HPI Objective Temp Min: 98.7 ??F (37.1 ??C) Max: 99.4 ??F (37.4 ??C), Pulse Min: 70 Max: 88, Resp Min: 9 Max: 26,BP Min: 109/72 Max: 150/87 Patient Vitals for the past 24 hrs: Temp Pulse Resp BP 05/26/24 1300 -- 80 12 122/75 05/26/24 1200 99.4 ??F (37.4 ??C) 80 26 109/72 05/26/24 1100 -- 88 25 138/86 05/26/24 1000 -- 74 26 122/78 05/26/24 0939 98.7 ??F (37.1 ??C) 77 26 138/86 05/26/24 0900 -- 77 26 138/86 05/26/24 0800 98.7 ??F (37.1 ??C) 82 10 113/90 05/26/24 0700 -- 73 10 136/83 05/26/24 0600 -- 74 22 138/83 05/26/24 0500 -- 72 12 140/90 05/26/24 0400 98.7 ??F (37.1 ??C) 75 15 138/84 05/26/24 0300 -- 75 18 139/86 05/26/24 0200 -- 79 21 130/95 05/26/24 0100 -- 78 14 144/89 05/26/24 0000 98.7 ??F (37.1 ??C) 70 9 139/90 05/25/24 2300 -- 75 11 138/89 05/25/24 2200 -- 74 20 150/87 05/25/24 2100 -- 70 18 135/90 05/25/24 2000 98.8 ??F (37.1 ??C) 74 24 125/85 05/25/24 1928 98.8 ??F (37.1 ??C) 74 24 125/85 Exam: Mental status: Awake, alert, Follows commands. Oriented x 4 Language: Fluency intact, comprehension intact, repetition intact. Visual norman: Intact bilaterally to confrontation. Neglect: No appreciable visual or tactile neglect noted. CN 3 - 12: right UMN facial palsy Motor: Tone/bulk/Abnormal movements: None. Objective strength: Proximal Upper Distal Upper Proximal Lower Distal Lower Right -4/5 -4/5 -4/5 -4/5 Left 4/5 4/5 4/5 4/5 Sensory LT: intact Cerebellar FNF Right Dysmetria - severe Left Dysmetria - moderate Gait Deferred NIH Total: 10 (05/26/2024 8:00 AM) Assessment Interval: Shift (05/26/2024 8:00 AM) Level of Consciousness: 0 (05/26/2024 8:00 AM) LOC: Questions (Month and Age): 0 (05/26/2024 8:00 AM) LOC: Commands (opens/closes, eyes/fists): 0 (05/26/2024 8:00 AM) Best Gaze: 1 (05/26/2024 8:00 AM) Visual: 0 (05/26/2024 8:00 AM) Facial Palsy: 1 (05/26/2024 8:00 AM) Motor Arm Function - Right: 2 (05/26/2024 8:00 AM) Motor Arm Function - Left: 0 (05/26/2024 8:00 AM) Motor Leg - Right: 2 (05/26/2024 8:00 AM) Motor Leg - Left: 2 (05/26/2024 8:00 AM) Limb Ataxia: 1 (05/26/2024 8:00 AM) Sensory: 0 (05/26/2024 8:00 AM) Best Language: 1 (05/26/2024 8:00 AM) Dysarthria: 0 (05/26/2024 8:00 AM) Extinction and Inattention: 0 (05/26/2024 8:00 AM) CBC: Recent Labs Component Name 05/26/24 0827 05/17/24 1024 04/10/24 0755 WBC 7.7 7.4 8.3 HGB 10.6* 10.3* 11.3* HCT 33.0* 33.3* 36.8* PLTCOUNT 220 268 316 BMP: Recent Labs Component Name 05/26/24 0827 05/17/24 1024 04/10/24 0755 03/22/18 1147 01/29/18 0620 01/28/18 0655 NA 139 - - - 136 136 POTASSIUM 3.8 4.8 4.5 - 3.9 3.3* CL 110* - - - 97* 97* CO2 21* 26 28 - 26 30* BUN 14 18 23 - 12 9 CREATININE 0.67* 0.88 1.05 - 1.0 0.9 EGFR >90 >90 79* - >60 >60 GLUCOSE 101 127* 143* - 170* 144* CALCIUM 8.1* 9.7 10.2 - 9.1 8.7 ANIONGAP 8 9 8 - 17 12 - = values in this interval not displayed. Recent Labs Component Name 05/26/24 0827 03/09/24 0954 02/15/24 0423 02/14/24 1610 PHOS 3.7 - 5.4* 5.2* MAGNESIUM 1.3* 1.6 1.8 - LFTs: Recent Labs Component Name 05/17/24 1024 03/11/24 0400 03/10/24 1309 02/14/24 1610 02/08/24 0526 TPROT 8.0 8.0 8.7* - 8.0 ALBUMIN 3.1* 3.0* 3.2* - 2.1* AST 15 15 16 - 62* ALT 22 18 20 - 73* ALKPHOS 59 69 65 - 193* TBIL 0.3 0.3 0.3 - 0.3 DBIL - - - - 0.163 - = values in this interval not displayed. Coags: Recent Labs Component Name 01/23/24 1045 01/23/24 1039 07/26/22 1653 01/25/18 0026 01/24/18 1540 01/24/18 1345 PT - 13.3 14.1 14.2 14.7 17.4* INR 1.1 1.0 1.1 1.1 1.2 1.4 PTT - 28.3 - - 35.7 >212.0* ENDO: Recent Labs Component Name 02/16/24 0450 TSH 1.6844 Recent Labs Component Name 05/22/24 1419 01/23/24 1039 09/17/23 1330 HGBA1C 7.1 6.1* 6.5 Cardiac: Recent Labs Component Name 05/17/24 1024 01/27/24 0537 01/23/24 1039 07/27/22 0244 07/26/22 1933 07/26/22 1653 CK 125 228* 1,415* - - - TROPONINI - - - <0.010 <0.010 <0.010 ABGs: Recent Labs Component Name 03/11/24 1654 02/27/24 1031 02/24/24 0851 07/26/22 1756 01/25/18 0026 01/24/18 1917 01/24/18 1706 PH 7.43 7.47* 7.51* - 7.42 7.40 7.35 PCO2 45 45 44 - 38 40 44 PO2 69* 82 102* - 82 102* 91 HCO3 - - - - 24.3 24.6 23.5 FIO2 21.0 30.0 28.0 - 36.0 40.0 40.0 - = values in this interval not displayed. UA: Recent Labs Component Name 01/28/18 2135 01/11/18 1548 COLORU Yellow Yellow CLARITYU Clear Clear LABSPEC 1.015 1.019 KETONES Negative Negative BILIRUBINUR Negative Negative BLOODU Negative Trace* NITRITE Negative Negative LEUKOCYTE Negative Negative WBCU - <1 URINEBACT - Rare Microbiology: Culture Date/Time Value Ref Range Status 02/06/2024 11:33 AM Moderate Staphylococcus aureus (Abnormal) Final Comment: Staphylococcus aureus methicillin-susceptible (MSSA) detected by penicillin binding protein immunoassay. 02/06/2024 11:33 AM Rare normal oropharyngeal tae Final XR Chest 1Vw Portable Result Date: 05/25/2024 IMPRESSION: Rotated patient = summation artifact in right apical chest from overlapping structures.No acute cardiopulmonary process. Referred By: Interpreted By: Bon Quinonez MD, 05/25/2024 12:[address] ANGIO HEAD AND NECK Result Date: 05/25/2024 IMPRESSION: 1. No central large vessel arterial occlusion in the brain. Multifocal arterial stenosis as described below, consider MRI follow-up if clinically indicated. 2. No hemodynamically significant carotid stenosis. Nascet criteria utilized for interpretation. There is evidence of bilateral common and internal carotid atherosclerosis, but no significant stenosis. 3. Atherosclerosis of the internal carotid arteries bilaterally with severe stenosis of the right intracranial internal carotid and moderate stenosis of the left. Supraclinoid portion of the left internal carotid artery demonstrates fusiform dilatation measuring up to 5.2 mm. 4. Moderate stenosis of the inferior aspect of the basilar artery, without evidence of occlusion. 5. A1 segment of the right anterior cerebral artery is absent, the A2 segment is fed through a widely patent anterior communicating artery. 6. Moderate stenosis of the left vertebral artery origin and severe stenosis of the right vertebral artery origin. Referred By: Interpreted By: Aaron Edwards MD, 05/25/2024 11:[address] Head Wo Contrast Result Date: 05/25/2024 IMPRESSION: No acute findings Ordered By: BROOKE HANSON Interpreted By: Jayden Addison MD, 05/25/2024 10:[address] Head Wo Contrast Result Date: 05/23/2024 IMPRESSION: Image quality is degraded by motion artifact, limiting the sensitivity of this exam. Within this limitation, no definite acute intracranial abnormalities identified. Senescent changes of global volume loss noted. Ordered By: DOMINGO REYES Interpreted By: Mark Combs MD, 05/23/2024 7:[address] Angio Chest Result Date: 05/22/2024 IMPRESSION: 1. Slightly limited evaluation for pulmonary embolism, but no pulmonary embolism is identified. 2. No acute process. 2. Prominent coronary arterial calcification. Referred By: Interpreted By: Zay Tompkins MD, 05/22/2024 11:14 PM XR Chest 1Vw Portable Result Date: 05/22/2024 =====IMPRESSION:===== No acute or focal infiltrates. Prominent heart size. Postoperative findings. Ordered By: MICHELL FIGUEROA Electronically Signed By: Kodak Govea MD on 45:42 PM Interpreted By: Kodak Govea MD, 05/22/2024 5:41 PM Hospital Problems on Admission: Essential hypertension (POA: Yes) Controlled type 2 diabetes mellitus without complication, without long-term current use of insulin (HCC) (POA: Yes) Cerebrovascular accident (CVA), unspecified mechanism (HCC) (POA: Yes) Assessment Yaya Vazquez Jr. is a 63 year old male presenting for episode of non responsiveness and not moving left side, now back to baseline. CTH with no acute changes. With similar previous episodes described by family and accompanying autonomic dysfunction (low SBP, diaphoresis) at time of unresponsiveness, this episode likely due to vasovagal syncope, brain MRI ordered to evaluate for underlying structural causes not seen on CT vs routine EEG ordered to evaluate for seizure. Plan Neurological Transient left side weakness Plan: - f/u MRI - f/u EEG - Neurological check q4h. - Pupillometer checks q4h. (Make sure appropriate order is in place and NPI is documented by RN). - Aspirin 81 - Statin lipitor 40mg qD - Head of bed > 30?? - Avoid hypoglycemia, hyponatremia, and hyperthermia Analgosedation: tylenol Cardiovascular Pulse Min: 70 Max: 88, BP Min: 109/72 Max: 150/87 HTN - amlodipine CAD - asa + plavix Respiratory No active issues - Aspiration precautions - Elevate head of bed - Maintain oxygen saturation > 92% - Monitor for respiratory distress Renal/Electrolytes Intake/Output Summary (Last 24 hours) at 05/26/2024 1326 Last data filed at 05/26/2024 0400 Gross per 24 hour Intake -- Output 225 ml Net -225 ml No active issues - Monitor intake and output - Replete electrolytes as needed BMP: Recent Labs Component Name 05/26/24 0827 05/17/24 1024 04/10/24 0755 03/22/18 1147 01/29/18 0620 01/28/18 0655 NA 139 - - - 136 136 POTASSIUM 3.8 4.8 4.5 - 3.9 3.3* CL 110* - - - 97* 97* CO2 21* 26 28 - 26 30* BUN 14 18 23 - 12 9 CREATININE 0.67* 0.88 1.05 - 1.0 0.9 EGFR >90 >90 79* - >60 >60 GLUCOSE 101 127* 143* - 170* 144* CALCIUM 8.1* 9.7 10.2 - 9.1 8.7 ANIONGAP 8 9 8 - 17 12 - = values in this interval not displayed. Recent Labs Component Name 05/26/24 0827 03/09/24 0954 02/15/24 0423 02/14/24 1610 PHOS 3.7 - 5.4* 5.2* MAGNESIUM 1.3* 1.6 1.8 - Infectious Disease Temp (24hrs), Av.8 ??F (37.1 ??C), Min:98.7 ??F (37.1 ??C), Max:99.4 ??F (37.4 ??C) No active issues - Monitor for fevers - [place] culture if febrile Recent Labs Component Name 05/26/24 0827 05/17/24 1024 04/10/24 0755 WBC 7.7 7.4 8.3 HGB 10.6* 10.3* 11.3* HCT 33.0* 33.3* 36.8* PLTCOUNT 220 268 316 Gastrointestinal GERD - Famotidine - 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: Pending - Diet: Pending - GI ppx: not indicated - Last BM: GROWTH MEDIA MIXER MUSHROOM - BM regimen: Pending Endocrine Recent Labs Component Name 05/22/24 1419 01/23/24 1039 09/17/23 1330 01/23/19 0000 09/05/18 0342 01/11/18 1548 HGBA1C 7.1 6.1* 6.5 - 6.6* 6.4* EAG - 128 - - 143 137 - = values in this interval not displayed. No active issues - f/u A1C - Accuchecks + SSI Hematology Recent Labs Component Name 05/26/24 0827 WBC 7.7 HGB 10.6* HCT 33.0* PLTCOUNT 220 No active issues DVT ppx: scd Musculoskeletal No active issues Disposition - PT/OT pending Feeds/Fluids: npo, PEG tube Analgesia: tylenol Sedation: none Thromboprophylaxis: scd HOB: 30 Ulcer Ppx: on famotidine Glucose: Accuchecks SBT: n/a BR: senna and miralax Indwelling lines: PIV De-escalation: daily evaluation Diana Murphy Medical Student [facility]. Associated attestation - Natalia Murphy MD - 05/26/2024 8:16 PM CDT For Medical Student Practice Only * Perfecto Hatch APRN-CABLE FERRYBOAT OPERATOR - 05/26/2024 1:12 PM CDT NEUROLOGY PLAN OF CARE 05/26/2024 at 1:12 PM HISTORY: History of Present Illness: After a doctors appointment patient suddenly slumped over and was unresponsive for about 30 seconds. When he came around he was conversant and not confused, SBP was in the 80s. He was taken to [facility] for further workup. There on the morning of he was 05/25 he was not responding, not moving left side, eyes were open. Code stroke was called, [facility] with no acute changes. Ultimately decided notto proceed with TNK and was transferred to u for further care Interval History: Patient states he feels back to his baseline. OBJECTIVE: PHYSICAL EXAM Temp: [98.7 ??F (37.1 ??C)-99.4 ??F (37.4 ??C)] 99.4 ??F (37.4 ??C) Pulse: [70-88] 80 Resp: [9-] 26 BP: (109-150)/(72-95) 109/72 PLAN: - CTA brain and neck pending - MRI pending - cEEG ordered - OK to Transfer to floor - Continue DAPT and Atorvastatin for secondary stroke prevention - Continue Q 4 neurochecks; NIHSS Q daily - Stat CT head for any change in neurological examination - Head of bed > 30?? - Avoid hypoglycemia, hyponatremia, and hyperthermia - Sodium goals: normal range - BP Goal: less than 180 - Continue diet per ST; PT/OT Case findings discussed with Dr. Coppola, Stroke attending. Perfecto Hatch APRN-AZEB 05/26/2024 1:12 PM * Latha Plummer, OT - 05/26/2024 10:51 AM CDT [facility] Physical Medicine and Rehabilitation Occupational Therapy Initial Evaluation Note Patient: Yaya Vazquez Jr. Med Record Number: [id number] Date of : 1960 Age: [age] year old PPE worn by staff: gloves PPE worn by patient: gown - patient, clean;socks - clean co-eval w/ PT Recommendations: Discharge OT Discharge Recommendations: Patient would benefit from ongoing therapy with home health (and ongoing daily assist from family) Recommended Transportation Method: Stretcher/Ambulance In addition to the 1:1 evaluation of the patient, additional eval time was spent completing the chart review prior to the assessment, completing the multidisciplinary plan of care and education plan post evaluation and communicating results of the eval to other treatment team members. Nurse and Physical Therapist contacted regarding patient status and/or discharge plan. Physician Orders: Evaluation and Treat Activity Level: as tolerated PRECAUTIONS: Weight Bearing Status: (no restrictions) Medical/Surgical Precaution: (fall risk) DIAGNOSIS: Patient Active Problem List: CAD (coronary artery disease) Essential hypertension S/P CABG x 3 Other chest pain Controlled type 2 diabetes mellitus without complication, without long-term current use of insulin ([facility]) Asthma ([facility]) Hyperlipidemia Morbid obesity with BMI of 40.0-44.9, adult ([facility]) Nocturia Weight gain Acute hypoxemic respiratory failure ([facility]) Altered mental status, unspecified altered mental status type Hypoxia Staphylococcus aureus infection Cerebrovascular accident ([facility]) Dysphagia following cerebral infarction Impaired cognition Problem with highly complex treatment regime Cerebrovascular accident (CVA), unspecified mechanism ([facility]) Past Medical History: Diagnosis Date Anemia 01/2018 Asthma ([facility]) Chest congestion 08/05/2020 Confusional arousals 08/05/2020 Controlled type 2 diabetes mellitus without complication, without long-term current use of insulin ([facility]) 09/28/2011 Coronary artery disease involving teller heart with angina pectoris ([facility]) 09/04/2018 Cough syncope 2018 Daytime sleepiness [...] 6-8 months-covid Wound of sternal region 02/23/2018 SUBJECTIVE: Subjective: pt agreeable to therapy (family at bedside throughout) PATIENT GOALS: Patient's Primary Concern: return home with family Home Situation: Type of Residence: Private Residence (- moved in w/ family from SNF in early May, family reportsnot receiving therapy following AR) Lives with:: (sister and brother in law) Steps to Enter: 1 Home Structure: Basement;One Story (pt lives in basement w/ chair lift) Primary Bedroom: Basement Primary Bathroom: Basement Equipment at Home: Michelle Lift;Hospital Bed;Chair lift for stairs;Wheelchair-Standard Prior Level of Functioning: Mobility: Wheelchair Bound (michelle lift since AR) Fallen Within 6 Mos: 1 (at SNF) Have Help at Home?: Yes, there is help at home now Who assists you at home?: Friends/Family How often is assistance provided?: daily (s/p CVA 02/05) Activity at Home: W/C Bound Who manages medications?: family Pain Assessment: Pain Location #1 Pain Scale/Observation: Numeric (0-10) Pain Rating Score #1: 0 Sedation Level #1: 1-Awake and alert OBJECTIVE: At start of therapy session, patient found in bed General Appearance: 63 y/o male received in NAD LDA: IV's: Peripheral line, External catheter, Telemetry, and PEG Tube Edema: No edema noted Vitals: (*Assess the 3 levels of oxygen saturations both for room air and 02 unless rest on room air is 88% or less). Rest BP: 135/85 (104) 138/86 (102)- EOB HR: 78 Sp02 Sp02 100% Room Air 1L O2 Ex/Gait/Activity Without 02 BP: 128/116 (119) -Standing HR: Sp02 Room Air Ex/Gait/Activity With 02 BP: HR: Sp02 L O2 Post Activity BP: 111/76 (86) HR: 81 Sp02 Sp02 96% Room Air RA Observations: no s/s dyspnea or dizziness Mental Status/Cognition: Orientation Level: Oriented to Person (place with choices, August 2084 ) Cognition: Follows Commands-Consistent Attention Span: Appears intact Following Commands: Follows one step commands with repetition/cues Safety Judgement: Decreased awareness of need for safety Awareness of Errors: Decreased awareness of deficits Problem Solving: Assistance required to identify errors made;Assistance required to generate solutions;Assistance required to implement solutions UE ROM: RUE: PROM WFL LUE: PROM WFL Strength: RUE: deficits noted LUE: deficits noted UE Tone RUE: intermittent jerky movements at rest LUE: no abnormal tone noted Coordination: deficits noted in rapid alternating movement UE Sensation RUE: not tested LUE: not tested Perception: Inattention/Neglect: Cues to attend to right side of body;Cues to maintain midline in sitting;Cues to maintain midline in standing Initiation: Cues to initiate tasks Mobility: A gait belt and non-slip socks were used for all out of bed activity this date. Bed Mobility: Supine to Sit: Moderate Assistance;X 2;Requires Verbal Cues for Technique with HOB in high fowlers position Transfers: Sit to Stand: Maximum Assistance;X 2 Stand to Sit: Maximum Assistance;X 2 Bed to Chair: Maximum Assistance to Right;X 2;Requires Verbal Cues for Technique;Requires Physical Cues for Technique Type of Transfer: Stand Pivot Transfer Transfer Device: Gait belt (close physical assist of 2) Balance: Balance Scales/Tests Used: Sitting: Static/Dynamic;Standing: Static/Dynamic Sitting - Static: Fair (fluctuating level of assist (SBA-modA) w/ R lean, requiring physica/verbal cuing to achieve/maintain midline sitting) Sitting - Dynamic: Fair -;With Both Upper Extremity's Support Standing - Static: Poor +;With Both Upper Extremity's Support Standing - Dynamic: Poor;With Both Upper Extremity's Support Activities of Daily Living Bathing: Maximal Assistance Upper Body Dressing: Maximal Assistance Lower Body Dressing: Total Assistance Toileting: Total Assistance Splint Issued/Checked: none ACTIVITY TOLERANCE: Activity Tolerance: Tolerates sitting more than 5 minutes (tolerates static standing for duration of BP reading) Modified [place]: Current Modified [place] Score: 5 AM-PAC 6 Clicks Daily Activity Raw Score:: 10 TREATMENT / EDUCATION / INTERVENTIONS: While performing OT, Patient and sister and other:brother in-law was instructed in:functional mobility training, self- care training, cognitive retraining, discharge planning, use of call light Presented to patient who demonstrates Fair understanding of instructions given. INFORMED CONSENT TO TREATMENT: Plan of care including recommended therapy, goals and frequency, discussed with patient who understands and agrees to proceed. ASSESSMENT: Functional performance limited due to: limited activities of daily living, decreased functional mobility, decreased functional balance, decreased cognition , decreased safety awareness, upper extremity functional impairments, decreased endurance and activity tolerance, and decreased coordination. Short Term Goals: Goal Formation With patient/family Patient will increase orientation to person, place, and time Patient will perform grooming in chair and with moderate assist Patient will perform upper extremity dressing with moderate assist Patient will transfer to bedside commode with moderate assist and X 2 Patient will perform supine to/from sit with moderate assist Care Home Goal(s): Patient to be baseline with functional mobility and self-care and should discharge to prior level of care. Plan: Patient continues to benefit from skilled therapy services. If patient is discharged from the facility, this note serves as a discharge summary if further occupational therapy visits did not occur. Refer to filed flowsheet for further details. Following therapy session, patient left in patient bedside chair , with waffle seat cushion in place, with chair alarm on and positioned under patient's buttocks , with call light within reach, with family in room, with RN, Amena aware. * Rachell Parra, PT - 05/26/2024 10:42 AM CDT [facility] Physical Medicine and Rehabilitation Physical Therapy Initial Evaluation Note Patient: Yaya Vazquez Jr. Med Record Number: [id number] Date of : 1960 Age: [age] year old PPE worn by staff: gloves;mask - procedural PPE worn by patient: gown - patient, clean;socks - clean CoEval with OT due to pt unknown tolerance and assist level. Recommendations: Discharge Discharge Equipment Recommendations: None PT Discharge Recommendations: Patient would benefit from ongoing therapy with home health Recommended Transportation Method: Stretcher/Ambulance In addition to the 1:1 evaluation of the patient, additional eval time was spent completing the chart review prior to the assessment, completing the multidisciplinary plan of care and education plan post evaluation and communicating results of the eval to other treatment team members. Patient is not ambulatory at this time. Pt's family reported pt has all required DME at home at this time. Nurse and Occupational Therapist contacted regarding patient status and/or discharge plan. Physician Orders: Evaluation and Treat PRECAUTIONS: Weight Bearing Status: (No WB restrictions noted) Activity Level: Activity as Tolerated DIAGNOSIS: Patient Active Problem List: CAD (coronary artery disease) Essential hypertension S/P CABG x 3 Other chest pain Controlled type 2 diabetes mellitus without complication, without long-term current use of insulin ([facility]) Asthma ([facility]) Hyperlipidemia Morbid obesity with BMI of 40.0-44.9, adult ([facility]) Nocturia Weight gain Acute hypoxemic respiratory failure ([facility]) Altered mental status, unspecified altered mental status type Hypoxia Staphylococcus aureus infection Cerebrovascular accident ([facility]) Dysphagia following cerebral infarction Impaired cognition Problem with highly complex treatment regime Cerebrovascular accident (CVA), unspecified mechanism ([facility]) Past Medical History: Diagnosis Date Anemia 01/2018 Asthma ([facility]) Chest congestion 08/05/2020 Confusional arousals 08/05/2020 Controlled type 2 diabetes mellitus without complication, without long-term current use of insulin ([facility]) 09/28/2011 Coronary artery disease involving teller heart with angina pectoris ([facility]) 09/04/2018 Cough syncope 2018 Daytime sleepiness [...] 6-8 months-covid Wound of sternal region 02/23/2018 SUBJECTIVE: Subjective: Pt agreeable to therapy evaluation. PATIENT GOALS: Patient's Primary Concern: Getting stronger and being able to get around at home Home Situation: Type of Residence: Private Residence (- moved in w/ family from SNF in early May, family reportsnot receiving therapy following AR) Lives with:: (sister and brother in law) Home Structure: Basement;One Story (pt lives in basement w/ chair lift) Primary Bedroom: Basement Primary Bathroom: Basement Equipment at Home: Michelle Lift;Hospital Bed;Chair lift for stairs;Wheelchair-Standard Prior Level of Functioning: Prior Level of Function Mobility: Wheelchair Bound (michelle lift since AR) Fallen Within 6 Mos: 1 (at SNF) Have Help at Home?: Yes, there is help at home now Who assists you at home?: Friends/Family How often is assistance provided?: daily (s/p CVA 02/05) Activity at Home: W/C Bound (has been w/c bound since his stroke in January) Pain Assessment: Pain Location #1 Pain Scale/Observation: Numeric (0-10) Pain Rating Score #1: 0 Sedation Level #1: 1-Awake and alert OBJECTIVE: At start of therapy session, patient found in bed and family bedside . General Appearance: adult male in NAD LDAs: IV's: Peripheral line, External catheter, Telemetry, and PEG Tube Edema: minimal edema noted in right lower extremity and minimal edema noted in left lower extremity Vitals: (*Assess the 3 levels of oxygen saturations both for room air and 02 unless rest on room air is 88% or less). Rest BP: 135/85 (104) 138/86 (102)- EOB HR: 78 Sp02 Sp02 100% Room Air 1L O2 Ex/Gait/Activity Without 02 BP: 128/116 (119) -Standing HR: Sp02 Room Air Ex/Gait/Activity With 02 BP: HR: Sp02 L O2 Post Activity BP: 111/76 (86) HR: 81 Sp02 Sp02 96% Room Air RA Observations: Pt denied dizziness, chest pain, SOB, and nausea during activity or position changes.In NAD throughout evaluation. Mental Status/Cognition: Orientation Level: Oriented to Person (place with choices, August 2084 ) Cognition: Follows Commands-Consistent ROM: RLE: PROM WFL LLE: PROM WFL Strength: RLE:deficits noted LLE: deficits noted Pt able to complete AROM in sitting EOB BLE- pt's functional strength impaired with pt requiring significant assist x 2 to safely complete standing from surface of bed Tone: RLE: no abnormal tone noted LLE: no abnormal tone noted Coordination: RLE: impaired LLE: impaired Grossly intact in sitting position alternating feet taps; pt unable to coordinate alternating stepping in standing Sensation: RLE: not tested LLE: not tested Pt with some difficulty answering abstract questioning & abstract thinking Perception: Inattention/Neglect: Cues to attend to left side of body;Cues to maintain midline in sitting;Cues to maintain midline in standing Visual Motor Tracking: Other (Comment) (Pt maintains his eyes towards Right side of visual field. Leroy not turn head or eyes towards therapist, but acknowledges questions/instructions with therapist on L side of pt.) Mobility: A gait belt and non-slip socks were used for all out of bed activity this date. Bed Mobility: Rolling: Moderate Assistance to Left Supine to Sit: Moderate Assistance;X 2;Requires Verbal Cues for Technique with HOB in semi-fowlers position Sit to Supine: Activity Does Not Occur (Pt in recliner at end of evaluation) Transfers: Sit to Stand: Maximum Assistance;X 2 Stand to Sit: Maximum Assistance;X 2 Bed to Chair: Maximum Assistance to Right;X 2;Requires Verbal Cues for Technique;Requires Physical Cues for Technique (close physical assist of 2) Type of Transfer: Stand Pivot Transfer Transfer Device: Gait belt Gait: Weight Bearing Status: (No WB restrictions noted) Distance Ambulated (ft): (Pt unable to stand with midline orientation and is unable to complete weight shift to advance opposite LE) Balance: Balance Scales/Tests Used: Sitting: Static/Dynamic;Standing: Static/Dynamic Sitting - Static: Fair -;Poor + (fluctuating level of assist (SBA - Mod A) w/ R lean, requiring physica/verbal cuing to achieve/maintain midline sitting) Sitting - Dynamic: Poor +;Fair - Standing - Static: Poor +;With Both Upper Extremity's Support (UE support on therapists' arms) Standing - Dynamic: Poor;With Both Upper Extremity's Support (UE support on therapists' arms) ACTIVITY TOLERANCE: Patient's activity tolerance: fair plus TREATMENT/INTERVENTIONS: evaluation, bed mobility training, transfer training, balance activities, and monitoring of vitals Modified [place]: Current Modified [place] Score: 5 AM-PAC 6 Clicks Mobility Raw Score:: 11 EDUCATION: While performing PT, Patient was instructed in:functional mobility training, safety awareness/fall precautions , home exercise program, stroke education and precautions, use of adaptive equipment, discharge planning, use of call light Presented to patient who demonstrates Fair understanding of instructions given. INFORMED CONSENT TO TREATMENT: Plan of care including recommended therapy, goals and frequency, discussed with patient who understands and agrees to proceed. ASSESSMENT: Patient would benefit from additional Physical Therapy sessions to achieve the following functionalgoals to enhance independence. Short Term Goals: Goal Formation With patient/family Patient will perform bed mobility with minimal assist Patient will transfer sit to/from stand with moderate assist Patient will transfer bed to/from chair with moderate assist Patient will perform home exercise program with minimal assistance from caregiver(s). Financial Solutions Advisor Goal(s): Patient to be baseline with functional mobility and self-care and should discharge to prior level of care. Equipment Issued: gait belt Plan: Transfer training Assistive device training Endurance training Bed mobility training Balance training Energy conservation techniques Safety awareness Home exercise program training wheelchair mobility If patient is discharged from the facility, this note serves as a discharge summary if further physical therapy visits did not occur. Refer to filed flowsheet for further details. Following therapy session, patient left in patient bedside chair , with waffle seat cushion in place, with chair alarm on and positioned under patient's buttocks , with call light within reach, with RNAmena, aware, with therapy cues visible on white board. All lines, monitors, IV's, equipment in place and intact pre and post visit. Patient was in no discomfort and had no additional needs at conclusion of PT eval. * Perfecto Hatch APRN-CNP - 05/26/2024 9:16 AM CDT NIH Stroke Scale Time: 9:16 AM Person Administering Scale: WILLIE Michel Administer stroke scale items in the order listed. Record performance in each category after each subscale exam. Do not go back and change scores. Follow directions provided for each exam technique. Scores should reflect what the patient does, not what the clinician thinks the patient can do. The clinician should record answers while administering the exam and work quickly. Except where indicated, the patient should not be coached (i.e., repeated requests to patient to make a special effort). 1a Level of consciousness: 0=alert; keenly responsive 1b. LOC questions: 0=Performs both tasks correctly 1c. LOC commands: 0=Performs both tasks correctly 2. Best Gaze: 2=forced deviation, or total gaze paresis not overcome by oculocephalic maneuver 3. Visual: 1=Partial hemianopia 4. Facial Palsy: 0=Normal symmetric movement 5a. Motor left arm: 0=No drift, limb holds 90 (or 45) degrees for full 10 seconds 5b. Motor right arm: 1=Drift, limb holds 90 (or 45) degrees but drifts down before full 10 seconds:does not hit bed 6a. motor left le=No drift, limb holds 90 (or 45) degrees for full 10 seconds 6b Motor right le=No drift, limb holds 90 (or 45) degrees for full 10 seconds 7. Limb Ataxia: 0=Absent 8. Sensory: 0=Normal; no sensory loss 9. Best Language: 0=No aphasia, normal 10. Dysarthria: 0=Normal 11. Extinction and Inattention: 0=No abnormality 12. Distal motor function: 0=Normal Total: 4 * Mervin Markham - 05/26/2024 8:29 AM CDT Stroke Service Daily Progress Note Yaya Vazquez Jr. Age: [age] year old Date of : 1960 Date of Admission: 05/25/2024 Hospital Day: 1 Subjective Patient is a 63 year old male who presented for an episode of unresponsiveness with L sided weakness, admitted for concern for stroke/TIA at [place] on 05/22 and transferred to [facility] on 05/25. Date last known well: 05/22/24 The NIHSS score was 35 (baseline 8) . 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 Patient remained afebrile (Tm - 98.8) with blood pressures ranging from 120s-140s/80s-90s. Objective Patient Vitals for the past 24 hrs: BP Temp Temp src Pulse Resp SpO2 05/26/24 0600 138/83 -- -- 74 22 98 % 05/26/24 0500 140/90 -- -- 72 12 97 % 05/26/24 0400 138/84 98.7 ??F (37.1 ??C) Axillary 75 15 96 % 05/26/24 0300 139/86 -- -- 75 18 96 % 05/26/24 0200 130/95 -- -- 79 21 95 % 05/26/24 0100 144/89 -- -- 78 14 100 % 05/26/24 0000 139/90 98.7 ??F (37.1 ??C) Axillary 70 9 98 % 05/25/24 2300 138/89 -- -- 75 11 97 % 05/25/24 2200 150/87 -- -- 74 20 98 % 05/25/24 2100 135/90 -- -- 70 18 99 % 05/25/241999 125/85 98.8 ??F (37.1 ??C) Axillary 74 24 97 % 05/25/24 1928 125/85 98.8 ??F (37.1 ??C) Axillary 74 24 97 % Intake/Output Summary (Last 24 hours) at 05/26/2024 0832 Last data filed at 05/26/2024 0400 Gross per 24 hour Intake -- Output 225 ml Net -225 ml Exam: Cortical Function Mental Status Awake, alert, follows commands Orientation Person, place, time, and situation Language Fluency intact, comprehension intact, repetition intact Visual [place] Intact bilaterally to confrontation Neglect No visual neglect noted, no tactile neglect noted Cranial Nerves II Pupils 4mm on the L and 3mm on the R, the R is more reactive to light than the L. Fundoscopic exam not performed. VIII Hearing is intact bilaterally to finger rub. III/IV/ R eye is down and out with weakness of adduction. No diplopia, ptosis, or nystagmus noted. IX/X Palate elevated symmetrically without phonation abnormalities noted. V Facial sensation symmetric to light touch and intact bilaterally. Corneal reflex not examined. XIHead turning and shoulder shrug are intact. VII R UMN facial droop XII Tongue is midline with normal movements and no atrophy noted. Motor Function Movement Intention tremor of the L>R hand, and head tremor Bulk No abnormalities noted Tone No abnormalities noted Proximal Upper Distal Upper Proximal Lower Distal Lower Right 4/5 4/5 4/5 4/5 Left 5/5 5/5 5/5 5/5 Muscle Stretch Reflexes BI TRI BR PAT ACH TOES Right 2 2 2 2 0 Down Left 2 2 2 2 0 Down Sensory Light Touch Intact bilaterally, heavier on the R Noxious Stimuli Symmetric and intact bilaterally Temperature Not tested Pallesthesia Not tested Cerebellar FNF JEANNE HKS Right Moderate intention tremor Deferred Deferred Left Mild intention tremor Deferred Deferred Gait Deferred Imaging: CT ANGIO HEAD AND NECK Result Date: 05/25/2024 IMPRESSION: 1. No central large vessel arterial occlusion in the brain. Multifocal arterial stenosis as described below, consider MRI follow-up if clinically indicated. 2. No hemodynamically significant carotid stenosis. Nascet criteria utilized for interpretation. There is evidence of bilateral common and internal carotid atherosclerosis, but no significant stenosis. 3. Atherosclerosis of the internal carotid arteries bilaterally with severe stenosis of the right intracranial internal carotid and moderate stenosis of the left. Supraclinoid portion of the left internal carotid artery demonstrates fusiform dilatation measuring up to 5.2 mm. 4. Moderate stenosis of the inferior aspect of the basilar artery, without evidence of occlusion. 5. A1 segment of the right anterior cerebral artery is absent, the A2 segment is fed through a widely patent anterior communicating artery. 6. Moderate stenosis of the left vertebral artery origin and severe stenosis of the right vertebral artery origin. Referred By: Interpreted By: Aaron Edwards MD, 05/25/2024 11:[address] Head Wo Contrast Result Date: 05/25/2024 IMPRESSION: No acute findings Ordered By: BROOKE HANSON Interpreted By: Jayden Addison MD, 05/25/2024 10:[address] Head Wo Contrast Result Date: 05/23/2024 IMPRESSION: Image quality is degraded by motion artifact, limiting the sensitivity of this exam. Within this limitation, no definite acute intracranial abnormalities identified. Senescent changes of global volume loss noted. Ordered By: DOMINGO REYES Interpreted By: Mark Combs MD, 05/23/2024 7:35 PM ECHO done 05/23 The left ventricular size is normal. Estimated left ventricular ejection fraction is 70%. Mild concentric left ventricular hypertrophy. There is mild hypokinesis of the mid to basal inferolateral wall and the basal inferior wall.. The agitated saline injection showed no clear evidenceof shunting into the left atrium, consistent with no patent foramen ovale. Aortic root is moderately dilated, 4.4cm. Ascending aorta is moderately dilated, 4.4cm. Mild aortic regurgitation. HbA1c Done 05/22 at outside facility was 7.1 WBC WNL at 7.7 Labs: Reviewed. Assessment Yaya Vazquez Jr. is a 63 year old male presenting for unresponsiveness with L sided weakness, concerning for TIA/stroke. Plan TIA/Stroke Workup; active - Patient will be admitted to the stroke service - CTH, CTA H/N, MRI Brain w/o, MRI H/N -Will consider cEEG pending MRI and CTA results - HbA1C, Lipid Panel, Cardiac Enzymes - UA and UDS - Tele + neuro checks q4h - NPO until passes swallow Blood Pressure Goals: Stroke/TIA without tPA < 220/120 Ischemic Pre-tPA <185/110 Ischemic Post-tPA < 180/105 Hemorrhagic/MT < 140/90 (If MT, clarify with vascular fellow) LDAs: PEG and PIV in place Core Measures tPA administration: no Anti-platlet: Continue ASA 81mg and Plavix 75mg DVT prophylaxis: SCD's Statin: Continue atorvastatin 40mg PT/OT Evaluation: pending evaluation Individual Modifiable Risk Factors Hypertension: yes Hyperlipidemia: yes Diabetes: yes Atrial Fibrillation: no Tobacco: yes Case findings discussed with Dr. Coppola, Stroke Attending/Endovascular Fellow Mervin Markham, MS3 * Blessing Osullivan MD - 05/26/2024 7:50 AM CDT Images from the original note were not included. [facility] Progress Note Yaya Vazquez Jr. Age: [age] year old Date of : 1960 Date of Admission: 05/25/2024 Hospital Day: 1 Subjective History of Present Illness Yaya Vazquez Jr. 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 Also has hx of CAD s/p CABG, obesity, HTN, HLD, DM II. Today he was in his wheelchair after a doctors appointment when we suddenly slumped over and was unresponsive for about 30 seconds. When he came around he was conversant and not confused, SBP was in the 80s. He was taken to [facility] for further workup. There on the morning of he was 05/25 he was not responding, not moving left side, eyes were open. Code stroke was called, [facility] with no acute changes. Ultimately decided not to proceed with TNK and was transferred to slu for further care. ICU events: 05/26: overnight remained stable. Back to baseline per conversation with his sister. Past Medical history: CAD s/p CABG, obesity, HTN, HLD, DM II, ischemic stroke EXAM: Objective Patient Vitals for the past 8 hrs: BP Temp Temp src Pulse Resp SpO2 05/26/24 0600 138/83 -- -- 74 22 98 % 05/26/24 0500 140/90 -- -- 72 12 97 % 05/26/24 0400 138/84 98.7 ??F (37.1 ??C) Axillary 75 15 96 % 05/26/24 0300 139/86 -- -- 75 18 96 % 05/26/24 0200 130/95 -- -- 79 21 95 % 05/26/24 0100 144/89 -- -- 78 14 100 % 05/26/24 0000 139/90 98.7 ??F (37.1 ??C) Axillary 70 9 98 % Exam: Mental status: Awake, alert, Follows commands. Oriented x 2 Language: dyasarthric, comprehension intact, repetition intact. Visual norman: Intact bilaterally to confrontation. Neglect: No appreciable visual or tactile neglect noted. CN 3 - 12: left eye down and out. Unable to adduct, elevate. Has double vision on all gaze except left gaze. Motor: Tone/bulk/Abnormal movements: coarse tremor of right hand. Objective strength: Proximal Upper Distal Upper Proximal Lower Distal Lower Right 4-/5 4-/5 4-/5 4-/5 Left 4/5 4/5 4/5 4/5 Sensory LT: intact Cerebellar FNF Right Dysmetria-severe, likely due to weakness Left Dysmetria-mod Gait Deferred Imagin/11: at outside hospital : CT Angio brain - IMPRESSION 1. No central large vessel arterial occlusion in the brain. Multifocal arterial stenosis as described below, consider MRI follow-up if clinically indicated. 2. No hemodynamically significant carotid stenosis. Nascet criteria utilized for interpretation. There is evidence of bilateral common and internal carotid atherosclerosis, but no significant stenosis. 3. Atherosclerosis of the internal carotid arteries bilaterally with severe stenosis of the right intracranial internal carotid and moderate stenosis of the left. Supraclinoid portion of the left internal carotid artery demonstrates fusiform dilatation measuring up to 5.2 mm. 4. Moderate stenosis of the inferior aspect of the basilar artery, without evidence of occlusion. 5. A1 segment of the right anterior cerebral artery is absent, the A2 segment is fed through a widely patent anterior communicating artery. 6. Moderate stenosis of the left vertebral artery origin and severe stenosis of the right vertebralartery origin. CT Head- FINDINGS: Images of the head demonstrate no evidence of acute or chronic intracranial hemorrhage. No masses or mass effects are seen. The ventricles and sulci are symmetric and appear normal. There is normal mcgraw-white differentiation throughout. There is no evidence of midline shift. Hospital Problems on Admission: Essential hypertension (POA: Yes) Controlled type 2 diabetes mellitus without complication, without long-term current use of insulin (HCC) (POA: Yes) Cerebrovascular accident (CVA), unspecified mechanism (HCC) (POA: Yes) Assessment Yaya Vazquez Jr. is a 63 year old male presenting for episode of non responsiveness and not moving left side, now back to baseline. CTH with no acute changes. Plan Neurological Questionable transient left side weakness at OSH - Neurological check q4h. - Pupillometer checks q4h. (Make sure appropriate order is in place and NPI is documented by RN). - Aspirin 81 - Statin lipitor 40mg daily - Head of bed > 30?? - Avoid hypoglycemia, hyponatremia, and hyperthermia - Follow stroke recs - CTA and MRI brain MRI negative for acute stroke Recurrent episodes of unresponsiveness: Multiple episodes of unresponsiveness over the last few years, passes out for 30-40 seconds and then regains consciousness. Confirmed with sister the nature of the recent episode on 22 May was similar to all previous episodes. Per sister he is back to baseline now. Plan- continuous EEG Analgosedation: Tylenol Cardiovascular Pulse Min: 70 Max: 79, BP Min: 125/85 Max: 150/87 HTN - continue amlodipine at 10 mg daily CAD - Asa + Plavix Respiratory No active issues - Aspiration precautions - Elevate head of bed - Maintain oxygen saturation > 92% - Monitor for respiratory distress Renal/Electrolytes Intake/Output Summary (Last 24 hours) at 05/26/2024 0750 Last data filed at 05/26/2024 0400 Gross per 24 hour Intake -- Output 225 ml Net -225 ml No active issues - Monitor intake and output - Replete electrolytes as needed Infectious Disease Temp (24hrs), Av.8 ??F (37.1 ??C), Min:98.7 ??F (37.1 ??C), Max:98.8 ??F (37.1 ??C) No active issues - Monitor for fevers - [place] culture if febrile Gastrointestinal GERD - Famotidine 20 mg twice daily - 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: pending - Diet: npo - GI ppx: not indicated - Last BM: GROWTH MEDIA MIXER MUSHROOM - BM regimen: senna + miralax Endocrine No active issues - f/u A1C - Accuchecks + SSI Hematology Recent Labs Component Name 05/17/24 1024 WBC 7.4 HGB 10.3* HCT 33.3* PLTCOUNT 268 No active issues DVT ppx: scd Musculoskeletal No active issues Disposition - PT/OT - recommend home with home health (patient has home equipment set up since his discharge from rehab after he suffered a stroke on 01/2024 Feeds/Fluids: npo Analgesia: tylenol Sedation: none Thromboprophylaxis: heparin HOB: 30 Ulcer Ppx: on famotidine Glucose: Accuchecks SBT: n/a BR: senna and miralax Indwelling lines: PIV De-escalation: daily evaluation Blessing Osullivan MD Neurology resident PGY2 Associated attestation - Natalia Murphy MD - 05/26/2024 8:15 PM CDT I have seen and examined the patient with the resident and I agree with the findings and plan of care as documented by the resident Date of Service: 05/26/2024 Natalia Murphy MD Neurologic Critical Care Attending documented in this encounter H&P Notes * Aline Finch MD - 05/25/2024 9:27 PM CDT STROKE/VASCULAR NEUROLOGY HISTORY AND PHYSICAL Patient: Yaya Vazquez Jr. Date of Admission: 05/25/2024 LOS: 0 Neurological CC: LOC episodes Brief HPI: History obtained from family and chart review. Yaya Vazquez Jr. is a 63 year old man who was transferred from [facility] for a syncopal episode. Patient was in his wheelchair after finishing a doctor's appointment when he slumped overand was unresponsive for about 30 seconds. His eyes were closed and he was not speaking. Per familyhe was immediately sweaty. When he came to he was conversant and not confused. EMS arrived and patient's blood pressure was in the 80s systolic (per family). Patient was admitted to [facility] for further workup on 05/22. Per family, patient has been having these episodes since before his CABG in 2018. Family states that his episodes are always about 30 seconds, not associated with abnormal movements, gaze deviation, or post-ictal state. Episodes are not positional. He has never been diagnosed with abnormal heart rh ythm . Sometimes the episodes are associated with coughing. At [facility] patient had an event which he was lethergic, unresponsive and not moving the left hand. A code stroke was activated, CTH negative for bleed or subacute infarct. CTA no LVO. Tele neurologist recommended TNK, which was discussed with the family however they declined at the time given the risks outlined by the pharmacist and ICU attending. Patient also improved rapidly over the period of assessment. Plan was to start on Keppra 500 mg BID IV, unclear if patient received dose. 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 Patient was found to have severe stenosis of the basilar artery and was taken for balloon angioplasty of the proximal basilar artery 01/22 c/b dissection of right distal VA. Patient was dischargedwith PEG (01/29) and trach (02/04) to [facility] 02/14-03[facility] [facility] from 03/12 - 04/11. Patient was then living in [facility], however family was not happy with the care there andpatient was brought home with hopes of trying home health. 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 ([facility]) 09/04/2018 Cough syncope 2018 Daytime sleepiness [...] Wound of sternal region 02/23/2018 Past Surgical history Past Surgical History: Procedure Laterality Date ANGIOPLASTY COLONOSCOPY N/A 11/12/2020 N/A; COLONOSCOPY SCREEN Coronary Artery Bypass Graft N/A 01/24/2018 N/A; Coronary artery bypass graft x 3 ENDOSCOPY, UPPER N/A 01/30/2024 N/A; ESOPHAGOGASTRODUODENOSCOPY (EGD) WITH PEG PLACEMENT ENDOSCOPY, UPPER N/A 03/17/2024 N/A; ESOPHAGOGASTRODUODENOSCOPY (EGD) WITH PEG PLACEMENT Tonsillectomy Current Medications No current facility-administered medications on file prior to encounter. Current Outpatient Medications on File Prior to Encounter Medication Sig Dispense Refill acetaminophen (Tylenol) 325 [...] tablet by Enteral Tube route once daily Allergy Allergies Allergen Reactions Lisinopril Angioedema Lisinopril Other and Urticaria Hives Penicillins Other and Urticaria Hives Pcn [Penicillins] Swelling eyes swelled shut 50 years ago Penicillin V Rash Family History Family History Problem Relation Name Age of Onset Hypertension Father <65 CAD (Coronary Artery Disease) Father <65 Cancer - Ovarian Mother 60s None Known Sister Diabetes - Type 2 Sister Social History Social History Socioeconomic History Marital status: Legally Number of children: 1 Years of education: 16 Highest education level: Bachelor's degree (e.g., BA, AB, BS) Occupational History 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 Systolic (24hrs), Av , Min:125 , Max:135 Vitals Vitals: 05/25/24199905/25/242099 BP: 125/85 135/90 Pulse: 74 70 Resp: 24 18 SpO2: 97% 99% Intake & Output No intake or output data in the 24 hours ending 05/25/242126 Exam: General: Gen: NAD Head: NCAT Heart: Regular rate and rhythm Lungs: Breathing unlabored on RA Skin: no rashes, ecchymosis, hematoma Extremities: No edema, peripheral pulses intact 1.Mental status: Awake, alert, follows commands, oriented to person, place, time Language fluency, comprehension and repetition intact Attention and visual spatial skills intact without neglect Affect and mood congruent, thought content/process appropriate 2.Cranial nerves: Pupils 4mm L and 3mm R, reactive to light R > L Visual norman intact in all quadrants b/l Inability to adduct L eye on rightward gaze, R eye resting down and out smooth pursuit intact, no nystagmus noted Mild R UMN facial droop Facial sensation intact No apparent hearing loss Palate elevates symmetrically, moderate dysarthria noted Shoulder shrug intact b/l Tongue protrudes midline 3.Motor: Normal range of motion, bulk and tone, no spasticity noted Patient is able to move all limbs antigravity, holds right arm to chest and favors left Makes rhythmic movements with right arm (chronic, since stroke) 6.Sensory: Pinprick intact throughout 5.Reflexes: Muscle stretch reflexes 2+ symmetric throughout, no clonus noted Plantar response mute b/l 6.Coordination: Impaired FNF with intention tremor on R > L Severe dysmetria on FNF with right 7.Gait: Not tested Imaging: XR Chest 1Vw Portable Result Date: 05/25/2024 IMPRESSION: Rotated patient = summation artifact in right apical chest from overlapping structures.No acute cardiopulmonary process. Referred By: Interpreted By: Bon Quinonez MD, 05/25/2024 12:[address] ANGIO HEAD AND NECK Result Date: 05/25/2024 IMPRESSION: 1. No central large vessel arterial occlusion in the brain. Multifocal arterial stenosis as described below, consider MRI follow-up if clinically indicated. 2. No hemodynamically significant carotid stenosis. Nascet criteria utilized for interpretation. There is evidence of bilateral common and internal carotid atherosclerosis, but no significant stenosis. 3. Atherosclerosis of the internal carotid arteries bilaterally with severe stenosis of the right intracranial internal carotid and moderate stenosis of the left. Supraclinoid portion of the left internal carotid artery demonstrates fusiform dilatation measuring up to 5.2 mm. 4. Moderate stenosis of the inferior aspect of the basilar artery, without evidence of occlusion. 5. A1 segment of the right anterior cerebral artery is absent, the A2 segment is fed through a widely patent anterior communicating artery. 6. Moderate stenosis of the left vertebral artery origin and severe stenosis of the right vertebral artery origin. Referred By: Interpreted By: Aaron Edwards MD, 05/25/2024 11:[address] Head Wo Contrast Result Date: 05/25/2024 IMPRESSION: No acute findings Ordered By: BROOKE HANSON Interpreted By: Jayden Addison MD, 05/25/2024 10:[address] Head Wo Contrast Result Date: 05/23/2024 IMPRESSION: Image quality is degraded by motion artifact, limiting the sensitivity of this exam. Within this limitation, no definite acute intracranial abnormalities identified. Senescent changes of global volume loss noted. Ordered By: DOMINGO REYES Interpreted By: Mark Combs MD, 05/23/2024 7:[address] Angio Chest Result Date: 05/22/2024 IMPRESSION: 1. Slightly limited evaluation for pulmonary embolism, but no pulmonary embolism is identified. 2. No acute process. 2. Prominent coronary arterial calcification. Referred By: Interpreted By: Zay Tompkins MD, 05/22/2024 11:14 PM Cardiac: Hospital Encounter encounter on 09/04/18: ECHOCARDIOGRAM 2D WITH DOPPLER ECHOCARDIOGRAM 2D WITH DOPPLER Labs: CBC Recent Labs Component Name 05/17/24 1024 04/10/24 0755 04/07/24 0422 01/11/18 1548 11/09/17 1521 WBC 7.4 8.3 7.8 - 8.0 RBC 3.87* 4.17* 3.81* - 5.14 HGB 10.3* 11.3* 10.4* - 14.1 HCT 33.3* 36.8* 33.9* - 42.9 PLT - - - - 319 - = values in this interval not displayed. CMP Recent Labs Component Name 05/17/24 1024 04/10/24 0755 04/07/24 0422 03/22/18 1147 01/29/18 0620 01/28/18 0655 01/27/18 0654 NA - - - - 136 136 138 POTASSIUM 4.8 4.5 4.0 - 3.9 3.3* 3.4* CL - - - - 97* 97* 100 CO2 26 28 26 - 26 30* 26 BUN 18 23 22 - 12 9 8 CREATININE 0.88 1.05 0.87 - 1.0 0.9 0.9 CALCIUM 9.7 10.2 9.7 - 9.1 8.7 9.1 - = values in this interval not displayed. MAG Recent Labs Component Name 03/09/24 0954 02/15/24 0423 02/14/24 0429 MAGNESIUM 1.6 1.8 1.4* PHOS Recent Labs Component Name 02/15/24 0423 02/14/24 1610 02/14/24 0429 PHOS 5.4* 5.2* 4.7 COAG Recent Labs Component Name 01/23/24 1045 01/23/24 1039 07/26/22 1653 01/25/18 0026 01/24/18 1540 01/24/18 1345 PT - 13.3 14.1 14.2 14.7 17.4* INR 1.1 1.0 1.1 1.1 1.2 1.4 PTT - 28.3 - - 35.7 >212.0* Cardiac Recent Labs Component Name 03/08/24 1301 07/27/22 0244 07/26/22 1933 07/26/22 1653 TROPONINI - <0.010 <0.010 <0.010 BNP 18 - - 90 Recent Labs Component Name 02/04/24 0328 01/24/24 0443 CHOL - 229* HDL - 32* LDLCALC - 161* TRIG 190* 179* Endocrine/DM No results found for: [id number] Recent Labs Component Name 05/22/24 1419 01/23/24 1039 09/17/23 1330 HGBA1C 7.1 6.1* 6.5 Recent Labs Component Name 02/16/24 0450 TSH 1.6844 Hospital Problem List Essential hypertension Controlled type 2 diabetes mellitus without complication, without long-term current use of insulin Cerebrovascular accident (CVA), unspecified mechanism Non-Hospital Problem List CAD (coronary artery disease) S/P CABG x 3 Other chest pain Asthma Hyperlipidemia Morbid obesity with BMI of 40.0-44.9, adult Nocturia Weight gain Acute hypoxemic respiratory failure Altered mental status, unspecified altered mental status type Hypoxia Staphylococcus aureus infection Cerebrovascular accident Dysphagia following cerebral infarction Impaired cognition Problem with highly complex treatment regime Assessment and Plan: 63 yo man with hx of prior CVA from critical basilar artery stenosis s/p angioplasty 01/23/24 who presents with an out of hospital syncopal like episode followed by an in hospital stroke code for 'unresponsiveness'. 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 Patient seems to be back to baseline cognitively. Differentials include possible stroke recrudescence (patient hypotensive after event and has stenosis of posterior circulation), vs cardiac syncope vs vasovagal syncope vs seizure vs less likely orthostatic (sitting during event). Imaging also notable for severe stenosis of the right intracranial ICA and moderate stenosis of the L ICA, moderate stenosis of L VA origin and severe stenosis of the R VA origin. Plan: - continuous cardiac monitoring - recent EKG reviewed from 01/23/2024 which was normal - had ECHO 05/23/2024 LV EF 70% - has never had event monitor per family - can consider cEEG monitoring to capture events to rule out seizures - consider consult to general neurology - start Keppra 500 mg BID if there is a concern for seizures - can consider repeat vessel imaging with CT angio before possible DSA - CTA 05/25/2024 reviewed: Moderate stenosis of the inferior aspect of the basilar artery, without evidence of occlusion. - can consider MRI wo con based on clinical evaluation - CTH 05/25/2024 reviewed without new subacute ischemic events - continue home aspirin and plavix daily - continue atorvastatin 40 mg - continue home amlodipine 10 mg - will need PT/OT/ST and case management involved for placement as family have tried home health but are considering other options, have strong opinions about not wanting patient to return to [facility] Modifiable risk factors: Hypertension: YES Hyperlipidemia: YES Atrial fibrillation: NO Tobacco: YES Diabetes mellitus: YES Access: PIV DVT prophylaxis: SCD's Code: Code Status: Prior Case findings will be discussed with Dr. Coppola, Stroke Attending. Aline Finch MD Neurology Resident Associated attestation - Jason Coppola MD - 05/26/2024 6:20 PM CDT .NEUROVASCULAR SERVICE ATTESTATION The above note was reviewed. The patient was seen and examined. I saw and examined the patient with the resident and/or medical student and/or nurse practitioner. I have verified all details of the note and agree with his/her documentation with additions and modifications if listed below. Please refer to the resident's, medical student's, or nurse practitioner's note for plans of active problems not discussed below. 63 year old man with a Hx of prior stroke 01/2024 S/P balloon angioplasty of the severe stenosis of the proximal basilar artery 01/22 c/b dissection of right distal VA who presented as transfer from [facility] for a brief episode of unresponsiveness followed by post-event confusion, ? Left sidedweakness with subsequent return to baseline. He has a Hx of similar episodes unresponsiveness. - Continue ASA/Plavix and statin - MRI, CTA - EEG pending - Dispo - PT/OT home health Date of Service: 05/26/24 Jason Coppola MD Problem List Essential hypertension (POA: Yes) Controlled type 2 diabetes mellitus without complication, without long-term current use of insulin (HCC) (POA: Yes) Altered mental status, unspecified altered mental status type (POA: Yes) Cerebrovascular accident (HCC) (POA: Yes) Cerebrovascular accident (CVA), unspecified mechanism (HCC) (POA: Yes) H/O: CVA (cerebrovascular accident) (POA: Yes) Seizure-like activity (HCC) (POA: Yes) Basilar artery stenosis (POA: Yes) See Resident note for the remaining problem specific plan. documented in this encounter Procedure Notes * Luis A Vasquez DO - 05/27/2024 8:43 AM CDT [facility] EEG REPORT Patient Name: Yaya Vazquez Jr. EEG#: [id number] Recording Start Time: 22:02 PM 05/26/2024 Epoch Start Time: 22:02 PM 05/26/2024 Epoch Stop Time: 10:07 AM 05/27/2024 Clinical History: Yaya Vazquez Jr. is a 63 year old male with episode of unresponsiveness. This continuous video EEG monitoring is ordered to evaluate for seizures. Current medications Current Facility-Administered Medications Medication 0.9% NaCl injection 3 mL And 0.9% NaCl injection 1-10 mL acetaminophen (Tylenol) tablet 650 mg albuterol (Proventil;Ventolin) (5 MG/ML) 0.5% nebulizer solution 2.5 mg albuterol-ipratropium (Duo-Neb) nebulizer solution 3 mL amLODIPine (Norvasc) tablet 10 mg aspirin chew tablet 81 mg atorvastatin (Lipitor) tablet 40 mg bisacodyl (Dulcolax) suppository 10 mg busPIRone (Buspar) tablet 5 mg clopidogrel (plaVIX) tablet 75 mg famotidine (Pepcid) tablet 20 mg folic acid (Folvite) tablet 1 mg heparin injection 5,000 Units iopamidol (Isovue 370) 76 % contrast polyethylene glycol 3350 (Miralax) packet 17 g senna-docusate (Senokot-S) tablet 1 tablet sodium phosphate rectal (Fleet Saline) enema 133 mL thiamine (Vitamin B-1) tablet 100 mg Description This is a continuous video EEG monitoring is 21-channels; consisting of 20 channels of EEG obtainedfrom electrodes placed on the scalp according to the international 10-20 system, T1 and T2 electrodes, and one channel of EKG monitoring. Background: Epoch Start Time: 22:02 PM 05/26/2024 Epoch Stop Time: 10:07 AM 05/27/2024 The awake background consisted of a posterior dominant rhythm up to 9 Hz and predominantly normal amplitude. Additional admixed low amplitude diffuse delta and theta activities were seen. Stage 1 sleep was identified in the forms of background attenuation, roving eye movements, and vertex waves. Stage 2 sleep was identified in the forms poorly formed spindles. Activation procedures were not performed. EKG was observed throughout the recording. IMPRESSION This is an abnormal cEEG due to mild generalized slowing. CLINICAL CORRELATION: From 05/26-05/27/2024 this finding is consistent with a mild encephalopathy, but is not specific to etiology. No epileptiform abnormalities or electrographic seizures were seen during this epoch. Luis A Vasquez DO * Tee Downey - 05/26/2024 10:30 PM CDTProcedure(s): EEG VIDEO MONITORING Patient is hooked up to MRI wires. documented in this encounter Consult Notes * Rosalba Mccartney - 06/04/2024 11:39 AM CDT [facility] INPATIENT CARDIOLOGY CONSULTATION Patient: Yaya Vazquez Jr. Age: [age] year old Date of : 1960 Date of Admission: 05/25/2024 Date: 06/04/2024 Reason for consult: syncope HISTORY: I saw Mr. Yaya Vazquez Jr. in consultation at [facility] on 06/04/2024 for evaluation of his repeated episodes of syncope lasting around 30 seconds. He is a 63 year old male with a history of HTN, CAD, CABG x3, DM2, smoking (former), dyslipidemia, CVA involving L thalamus, and severe stenosis of the basilar artery that was treated with balloon angioplasty. The patient had a syncopal episode in [facility] for which code stroke was activated on 05/29/24 that had negative CTH/CTA . The patient returned to baseline during workup. Neuro work up for epileptic seizures was also negative. Majority of history obtained from sister Jenn: The patient has had these episodes even before his stroke in January, and while she cannot accurately state the frequency due to him living alone, she would guess about once a month. After his stroke he was moved to a facility and is unsure whether or not he had these episodes there and if they were witnessed. His episode at [facility] was the first one witnessed by medical staff. There is a prodrome of sweating and feeling cold and clammy before he loses consciousness, which the patient endorsed as well. Sister says he is a little cloudy after these episodes. She denies any mention of chest pain and SOB. She also noted that before his stroke she would occasionally note confusion regarding time when she would call her brother on the phone and wonders if he had frequently been having episodes while living alone, or if those were signs leading up to his stroke. He does have sleep apnea, but sister reports that he does not use his CPAP machine. Since his stroke, she says he has days where he is more clear, and bad days where he is not. Per chart review, family history is significant for HTN and CAD in his father, who before he was 65. 06/04: Patient had his echo done yesterday. No acute events overnight other than difficulty swallowing his food last night with coughing following. No complaints this morning. Family member in room said patient will be discharged to [place] rehab. 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 ([facility]) 09/04/2018 Cough syncope 2018 Daytime sleepiness [...] 6-8 months-covid Wound of sternal region 02/23/2018 PAST SURGICAL HISTORY: Past Surgical History: Procedure Laterality Date ANGIOPLASTY COLONOSCOPY N/A 11/12/2020 N/A; COLONOSCOPY SCREEN Coronary Artery Bypass Graft N/A 01/24/2018 N/A; Coronary artery bypass graft x 3 ENDOSCOPY, UPPER N/A 01/30/2024 N/A; ESOPHAGOGASTRODUODENOSCOPY (EGD) WITH PEG PLACEMENT ENDOSCOPY, UPPER N/A 03/17/2024 N/A; ESOPHAGOGASTRODUODENOSCOPY (EGD) WITH PEG PLACEMENT Tonsillectomy FAMILY HISTORY: Family History Problem Relation Name Age of Onset Hypertension Father <65 CAD (Coronary Artery Disease) Father <65 Cancer - Ovarian Mother 60s None Known Sister Diabetes - Type 2 Sister SOCIAL HISTORY: Social History Tobacco Use Smoking status: Former Types: Cigars Start date: 1997 Smokeless tobacco: Never Tobacco comments: 3-4 times / month-2020 says 1x/month Vaping Use Vaping Use: Never used Substance Use Topics Alcohol use: Not Currently Alcohol/week: 10.0 standard drinks of alcohol Types: 10 Standard drinks or equivalent per week Comment: 0-50+ a week Drug use: Not Currently Types: Marijuana ALLERGIES: Allergies Allergen Reactions Lisinopril Angioedema Lisinopril Other and Urticaria Hives Penicillins Other and Urticaria Hives Pcn [Penicillins] Swelling eyes swelled shut 50 years ago Penicillin V Rash HOME MEDICATIONS: Medications Prior to Admission Medication Sig Dispense Refill acetaminophen (Tylenol) 325 [...] tablet by Enteral Tube route once daily CURRENT MEDICATIONS: 0.9% NaCl 3 mL Intracatheter q8h amLODIPine 10 mg Enteral Tube QDAY aspirin 81 mg Enteral Tube QDAY atorvastatin 40 mg Enteral Tube AT BEDTIME busPIRone 5 mg Per G Tube TID clopidogrel 75 mg Enteral Tube QDAY famotidine 20 mg Enteral Tube BID folic acid 1 mg Enteral Tube QDAY heparin 5,000 Units Subcutaneous q8h polyethylene glycol 3350 17 g Oral QDAY senna-docusate 1 tablet Oral QDAY thiamine 100 mg Enteral Tube QDAY VITAL SIGNS: Temp: [97.4 ??F (36.3 ??C)-98.5 ??F (36.9 ??C)] 98.5 ??F (36.9 ??C) Pulse: [77-84] 84 Resp: [14-16] 14 BP: (113-133)/(80-94) 124/84 PHYSICAL EXAM: Gen: Alert, cooperative, no distress Head: Normocephalic, without obvious abnormality, atraumatic Eyes: Conjunctivae/corneas clear, L eye palsy CV: RRR, S1S2, No M/R/G Ext: No clubbing, cyanosis, edema; no skin changes consistent with venous stasis or arterial disease. R arm scar likely from graft vessel acquisition. Pulses: 2+ DP B Skin: Skin color, texture, turgor normal. No rashes or lesions Neuro: fluency decreased, R arm tremor DATA REVIEWED: LABS: CBC: Recent Labs Component Name 06/03/24 0556 06/02/24 0513 06/01/24 0528 01/11/18 1548 11/09/17 1521 WBC 7.8 7.5 7.1 - 8.0 HGB 10.9* 11.4* 10.4* - 14.1 HCT 34.2* 36.4* 33.2* - 42.9 MCV 82.0 84.1 82.8 - 83.5 PLT - - - - 319 - = values in this interval not displayed. Coagulation Panel: Recent Labs Component Name 05/29/24 0041 01/23/24 1045 01/23/24 1039 07/26/22 1653 07/26/22 1653 01/25/18 0026 01/24/18 1540 01/24/18 1345 PT - - 13.3 - 14.1 14.2 14.7 17.4* INR 1.1 1.1 1.0 - 1.1 1.1 1.2 1.4 PTT - - 28.3 - - - 35.7 >212.0* - = values in this interval not displayed. BMP: Recent Labs Component Name 06/03/24 0556 06/02/24 0513 06/01/24 0528 01/11/18 1548 11/09/17 1521 11/19/15 0923 NA 136 138 139 - 138 140 POTASSIUM 4.2 3.8 3.8 - - - CL 103 104 103 - 100 106 CO2 26 27 26 - 30 26 BUN 16 19 18 - 18 14 CREATININE 0.75 0.78 0.78 - 0.95 0.93 GLU - - - - 86 105* CALCIUM 9.6 9.5 9.7 - 9.7 9.2 - = values in this interval not displayed. Recent Labs Component Name 06/03/24 0556 06/02/24 0513 06/01/24 0528 MAGNESIUM 1.5* 1.9 1.5* Recent Labs Component Name 06/03/24 0556 06/02/24 0513 06/01/24 0528 PHOS 4.1 4.3 3.9 Hepatic Panel: Recent Labs Component Name 05/17/24 1024 03/11/24 0400 03/10/24 1309 09/04/18 0956 01/11/18 1548 11/19/15 0923 AST 15 15 16 - 14 14 ALT 22 18 20 - 13 14 ALKPHOS 59 69 65 - 56 49 TBILI - - - - 0.7 0.3 ALB - - - - 3.8 4.1 - = values in this interval not displayed. ABG: Recent Labs Component Name 03/11/24 1654 02/27/24 1031 02/24/24 0851 PH 7.43 7.47* 7.51* PCO2 45 45 44 PO2 69* 82 102* Amylase/Lipase: Invalid input(s): AMYL , LIPA Thyroid Studies: Recent Labs Component Name 05/30/24 0432 TSH 2.381 Cardiac Enzymes: Recent Labs Component Name 07/27/22 0244 07/26/22 1933 07/26/22 1653 TROPONINI <0.010 <0.010 <0.010 Lipid Panel: Recent Labs Component Name 01/24/24 0443 LDLCALC 161* HDL 32* ECG: - ECHO COMPLETE W CONTRAST W BUBBLE STUDY (06/03/24) Summary * Left ventricle is normal in size, with normal systolic function, EF 66%, wall motion is abnormal (see diagram), and diastolic function is consistent with grade I diastolic dysfunction and normal left atrial filling pressure. * There is mild concentric remodeling of the left ventricle. * Right ventricle is normal in size with reduced systolic function. * Agitated saline contrast study at rest and with Valsalva is negative for a shunt. * No hemodynamically significant valve disease. COMPLETE ECHO (05/23/24) The left ventricular size is normal. Estimated left ventricular ejection fraction is 70%. Mild concentric left ventricular hypertrophy. There is mild hypokinesis of the mid to basal inferolateral wall and the basal inferior wall. The agitated saline injection showed no clear evidence of shunting into the left atrium, consistentwith no patent foramen ovale. Aortic root is moderately dilated, 4.4cm. Ascending aorta is moderately dilated, 4.4cm. Mild aortic regurgitation. ECHO COMPLETE W CONTRAST W BUBBLE STUDY (01/2024) Left Ventricle: Left ventricle size is normal. Mildly to moderately increased wall thickness. Normal systolic function. EF 50-55%. Normal wall motion. Diastolic function is indeterminate. Right Ventricle: Right ventricle is not well visualized. Aortic Valve: Mild regurgitation. CARDIAC STRESS TEST: 08/2018 No focal fixed or reversible perfusion defect. Left ventricular ejection fraction 49% with mild global hypokinesis. HEART CATHETERIZATION: 11/16/2017 i. Left main: large caliber vessel that is without angiographic evidence of atherosclerotic disease ii. LAD: There is a severe 90% stenosis of the proximal segment. D1 is without angiographic evidence of atherosclerotic disease. The middle segment of the LAD has a mild 20% stenosis. The remainder of the LAD system is without angiographic evidence of atherosclerotic disease. iii. LCx: nondominant vessel that gives rise to a high OM1 branch. The proximal LCx and OM1 are without angiographic evidence of atherosclerotic disease. The middle segment of the LCx has a moderate 50% stenosis, followed by a severe 80% stenosis, followed by a moderate 40% stenosis. There are 3 other OM branches, and the system terminates with a PL branch. iv. RCA: dominant vessel. The proximal and middle segments have serial mild and moderate stenoses around the first bend ranging in severity of 30-50%. Just prior to the second bend, the middle segment has a severe 70% stenosis. The distal segment of the RCA has luminal irregularities of up to 10-20% prior to terminating as a PDA branch. The PDA branch is without angiographic evidence of atherosclerotic disease. ASSESSMENT & PLAN: Yaya Vazquez is a 63 year old male presenting with repeat syncopal episodes. Neurology work up with negative cEEG makes epileptic seizures unlikely and brain imaging was negative for stroke. Typical findings on echo suggestive of syncope etiology include left atrial myxoma, severe aortic valvular stenosis, hypertrophic cardiomyopathy with significant left ventricular outflow tract obstruction, marked pulmonary arterial hypertension, and certain forms of congenital heart disease such as abnormal aortic origin of a coronary artery and pericardial tamponade (UpToDate). The patient's echo on 05/23 is fairly normal and does not show the kind of findings that would suggest cardiac etiology. Telemetry review shows no evidence of arrhythmia as of now. Review of head CTA shows only <50% stenosis of the carotids, making it unlikely that they are contributing to his syncopal episodes. Repeat echo done yesterday showed normal EF at 66% with an inferolateral wall being hypokinetic. Findings consistent with grade I diastolic dysfunction, but otherwise there is nothing to suggest cardiac cause of his syncope. However, will monitor outpatient with event monitor and f/u outpatient. The nature of his episodes on history are suggestive of vasovagal syncope. Patient is ready for discharge from cardiac standpoint. #Syncope - continue DAPT for secondary stroke prevention - increase atorvastatin to 80mg - continue telemetry while inpatient - discharge with Holter monitor for 4 weeks - f/u with cardiology outpatient - orthostatic vitals Please note, recommendations are not final until attested/co-signed by the attending physician. Cardiology will be signing off. Thank you for your consultation, please do not hesitate to contact us with any questions or concerns. Cardiology High Risk Variables Obesity - Morbid (severe) obesity due to excess calories and Tobacco Use - Nicotine dependence, unspecified, in remission Were these present on admission? Yes Rosalba Mccartney MS3 06/04/2024 11:56 AM Associated attestation - Rosalee Ivory MD - 06/04/2024 12:23 PM CDT Patient seen and examined with Resident and Fellow. Please see note for further details. I confirm history, exam, assessment and plan. In addition I note: Interval history: No acute events overnight Exam: Alert NAD CV: RRR nml S1 S2 no m/r/g Assessment/Plan: Syncope: Agree that his syncope is less likely cardiac in nature. However should have 30 day event monitor and cardiology follow up. His atorvastatin should be increased to 80 mg QD given his LDL 161 06/04/2024 12:19 PM Rosalee Ivory MD * Rosalba Mccartney - 05/30/2024 1:13 PM CDTAssociated Order(s): IP CONSULT TO CARDIOLOGY [facility] INPATIENT CARDIOLOGY CONSULTATION Patient: Yaya Vazquez Jr. Age: [age] year old Date of : 1960 Date of Admission: 05/25/2024 Date: 05/30/2024 Reason for consult: syncope HISTORY: I saw Mr. Yaya Vazquez Jr. in consultation at [facility] on 05/30/2024 for evaluation of his repeated episodes of syncope lasting around 30 seconds. He is a 63 year old male with a history of HTN, CAD, CABG x3, DM2, smoking (former), dyslipidemia, CVA involving L thalamus, and severe stenosis of the basilar artery that was treated with balloon angioplasty. The patient had a syncopal episode in [facility] for which code stroke was activated on 05/29/24 that had negative CTH/CTA . The patient returned to baseline during workup. Neuro work up for epileptic seizures was also negative. Majority of history obtained from sister Jenn: The patient has had these episodes even before his stroke in January, and while she cannot accurately state the frequency due to him living alone, she would guess about once a month. After his stroke he was moved to a facility and is unsure whether or not he had these episodes there and if they were witnessed. His episode at [facility] was the first one witnessed by medical staff. There is a prodrome of sweating and feeling cold and clammy before he loses consciousness, which the patient endorsed as well. Sister says he is a little cloudy after these episodes. She denies any mention of chest pain and SOB. She also noted that before his stroke she would occasionally note confusion regarding time when she would call her brother on the phone and wonders if he had frequently been having episodes while living alone, or if those were signs leading up to his stroke. He does have sleep apnea, but sister reports that he does not use his CPAP machine. Since his stroke, she says he has days where he is more clear, and bad days where he is not. Per chart review, family history is significant for HTN and CAD in his father, who before he was 65. 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 ([facility] [...] 6-8 months-covid Wound of sternal region 02/23/2018 PAST SURGICAL HISTORY: Past Surgical History: Procedure Laterality Date ANGIOPLASTY COLONOSCOPY N/A 11/12/2020 N/A; COLONOSCOPY SCREEN Coronary Artery Bypass Graft N/A 01/24/2018 N/A; Coronary artery bypass graft x 3 ENDOSCOPY, UPPER N/A 01/30/2024 N/A; ESOPHAGOGASTRODUODENOSCOPY (EGD) WITH PEG PLACEMENT ENDOSCOPY, UPPER N/A 03/17/2024 N/A; ESOPHAGOGASTRODUODENOSCOPY (EGD) WITH PEG PLACEMENT Tonsillectomy FAMILY HISTORY: Family History Problem Relation Name Age of Onset Hypertension Father <65 CAD (Coronary Artery Disease) Father <65 Cancer - Ovarian Mother 60s None Known Sister Diabetes - Type 2 Sister SOCIAL HISTORY: Social History Tobacco Use Smoking status: Former Types: Cigars Start date: 1997 Smokeless tobacco: Never Tobacco comments: 3-4 times / month-2020 says 1x/month Vaping Use Vaping Use: Never used Substance Use Topics Alcohol use: Not Currently Alcohol/week: 10.0 standard drinks of alcohol Types: 10 Standard drinks or equivalent per week Comment: 0-50+ a week Drug use: Not Currently Types: Marijuana ALLERGIES: Allergies Allergen Reactions Lisinopril Angioedema Lisinopril Other and Urticaria Hives Penicillins Other and Urticaria Hives Pcn [Penicillins] Swelling eyes swelled shut 50 years ago Penicillin V Rash HOME MEDICATIONS: Medications Prior to Admission Medication Sig Dispense Refill acetaminophen (Tylenol) 325 [...] tablet by Enteral Tube route once daily CURRENT MEDICATIONS: 0.9% NaCl 3 mL Intracatheter q8h amLODIPine 10 mg Enteral Tube QDAY aspirin 81 mg Enteral Tube QDAY atorvastatin 40 mg Enteral Tube AT BEDTIME busPIRone 5 mg Per G Tube TID clopidogrel 75 mg Enteral Tube QDAY famotidine 20 mg Enteral Tube BID folic acid 1 mg Enteral Tube QDAY heparin 5,000 Units Subcutaneous q8h iopamidol Intravenous Contrast - Once polyethylene glycol 3350 17 g Oral QDAY senna-docusate 1 tablet Oral QDAY thiamine 100 mg Enteral Tube QDAY VITAL SIGNS: Temp: [97.7 ??F (36.5 ??C)-98.5 ??F (36.9 ??C)] 97.7 ??F (36.5 ??C) Pulse: [76-78] 76 Resp: [16-17] 16 BP: (112-132)/(69-91) 112/69 PHYSICAL EXAM: Gen: Alert, cooperative, no distress Head: Normocephalic, without obvious abnormality, atraumatic Eyes: Conjunctivae/corneas clear, L eye palsy CV: RRR, S1S2, No M/R/G Ext: No clubbing, cyanosis, edema; no skin changes consistent with venous stasis or arterial disease. R arm scar likely from graft vessel acquisition. Pulses: 2+ DP B Skin: Skin color, texture, turgor normal. No rashes or lesions Neuro: fluency decreased, R arm tremor DATA REVIEWED: LABS: CBC: Recent Labs Component Name 05/30/24 0432 05/29/24 0004 05/28/24 0446 01/11/18 1548 11/09/17 1521 WBC 6.4 6.3 9.5 - 8.0 HGB 10.3* 10.6* 10.3* - 14.1 HCT 33.0* 34.0* 32.3* - 42.9 MCV 84.4 85.0 83.2 - 83.5 PLT - - - - 319 - = values in this interval not displayed. Coagulation Panel: Recent Labs Component Name 05/29/24 0041 01/23/24 1045 01/23/24 1039 07/26/22 1653 07/26/22 1653 01/25/18 0026 01/24/18 1540 01/24/18 1345 PT - - 13.3 - 14.1 14.2 14.7 17.4* INR 1.1 1.1 1.0 - 1.1 1.1 1.2 1.4 PTT - - 28.3 - - - 35.7 >212.0* - = values in this interval not displayed. BMP: Recent Labs Component Name 05/30/24 04305/29/24 0004 05/28/24 0446 01/11/18 1548 11/09/17 1521 11/19/15 0923 NA 137 137 136 - 138 140 POTASSIUM 3.9 3.7 3.8 - - - CL 104 102 103 - 100 106 CO2 26 23 23 - 30 26 BUN 21 22 - 18 14 CREATININE 0.75 0.80 0.88 - 0.95 0.93 GLU - - - - 86 105* CALCIUM 9.6 9.3 9.5 - 9.7 9.2 - = values in this interval not displayed. Recent Labs Component Name 05/30/24 04305/29/24 0004 05/28/24 0446 MAGNESIUM 1.8 1.5* 1.5* Recent Labs Component Name 05/30/2443105/29/24 0004 05/28/24 0446 PHOS 3.6 3.4 3.6 Hepatic Panel: Recent Labs Component Name 05/17/24 1024 03/11/24 0400 03/10/24 1309 09/04/18 0956 01/11/18 1548 11/19/15 0923 AST 15 15 16 - 14 14 ALT 22 18 20 - 13 14 ALKPHOS 59 69 65 - 56 49 TBILI - - - - 0.7 0.3 ALB - - - - 3.8 4.1 - = values in this interval not displayed. ABG: Recent Labs Component Name 03/11/24 1654 02/27/24 1031 02/24/24 0851 PH 7.43 7.47* 7.51* PCO2 45 45 44 PO2 69* 82 102* Amylase/Lipase: Invalid input(s): AMYL , LIPA Thyroid Studies: Recent Labs Component Name 05/30/24 0432 TSH 2.381 Cardiac Enzymes: Recent Labs Component Name 07/27/22 0244 07/26/22 1933 07/26/22 1653 TROPONINI <0.010 <0.010 <0.010 Lipid Panel: Recent Labs Component Name 01/24/24 0443 LDLCALC 161* HDL 32* ECG: COMPLETE ECHO 05/23/24 The left ventricular size is normal. Estimated left ventricular ejection fraction is 70%. Mild concentric left ventricular hypertrophy. There is mild hypokinesis of the mid to basal inferolateral wall and the basal inferior wall. The agitated saline injection showed no clear evidence of shunting into the left atrium, consistentwith no patent foramen ovale. Aortic root is moderately dilated, 4.4cm. Ascending aorta is moderately dilated, 4.4cm. Mild aortic regurgitation. ECHO COMPLETE W CONTRAST W BUBBLE STUDY (01/2024) Left Ventricle: Left ventricle size is normal. Mildly to moderately increased wall thickness. Normal systolic function. EF 50-55%. Normal wall motion. Diastolic function is indeterminate. Right Ventricle: Right ventricle is not well visualized. Aortic Valve: Mild regurgitation. CARDIAC STRESS TEST: 08/2018 No focal fixed or reversible perfusion defect. Left ventricular ejection fraction 49% with mild global hypokinesis. HEART CATHETERIZATION: 11/16/2017 i. Left main: large caliber vessel that is without angiographic evidence of atherosclerotic disease ii. LAD: There is a severe 90% stenosis of the proximal segment. D1 is without angiographic evidence of atherosclerotic disease. The middle segment of the LAD has a mild 20% stenosis. The remainder of the LAD system is without angiographic evidence of atherosclerotic disease. iii. LCx: nondominant vessel that gives rise to a high OM1 branch. The proximal LCx and OM1 are without angiographic evidence of atherosclerotic disease. The middle segment of the LCx has a moderate 50% stenosis, followed by a severe 80% stenosis, followed by a moderate 40% stenosis. There are 3 other OM branches, and the system terminates with a PL branch. iv. RCA: dominant vessel. The proximal and middle segments have serial mild and moderate stenoses around the first bend ranging in severity of 30-50%. Just prior to the second bend, the middle segment has a severe 70% stenosis. The distal segment of the RCA has luminal irregularities of up to 10-20% prior to terminating as a PDA branch. The PDA branch is without angiographic evidence of atherosclerotic disease. ASSESSMENT & PLAN: Yaya Vazquez is a 63 year old male presenting with repeat syncopal episodes. Neurology work up with negative cEEG makes epileptic seizures unlikely and brain imaging was negative for stroke. Typical findings on echo suggestive of syncope etiology include left atrial myxoma, severe aortic valvular stenosis, hypertrophic cardiomyopathy with significant left ventricular outflow tract obstruction, marked pulmonary arterial hypertension, and certain forms of congenital heart disease such as abnormal aortic origin of a coronary artery and pericardial tamponade (UpToDate). The patient's echo on 05/23 is fairly normal and does not show the kind of findings that would suggest cardiac etiology. Telemetry review shows no evidence of arrhythmia as of now. Review of head CTA shows only <50% stenosis of the carotids, making it unlikely that they are contributing to his syncopal episodes. The nature of his episodes on history almost seem suggestive of vasovagal syncope. 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 Thank you for your consultation, please do not hesitate to contact us with any questions or concerns. Cardiology High Risk Variables Obesity - Morbid (severe) obesity due to excess calories and Tobacco Use - Nicotine dependence, unspecified, in remission Were these present on admission? Yes Rosalba Mccartney MS3 05/30/2024 3:36 PM Associated attestation - Curly Krueger MD - 05/31/2024 11:17 AM CDT I have verified the documentation of the medical student including all history, exam, and medical decision-making details. I have personally performed a physical exam and have personally reviewed thedata to support my medical decision-making as outlined in the medical student's note, and I arrive i ndependently at the same conclusion. Consulted for suspicion of cardiac syncope. Patient is unable to give history, hence interview with sister. Multiple episodes of transient LOC . Cannot corroborate with symptoms of palpitations or chest pain. Tele up to this point not indicative. TTE from [facility] with preserved LVEF, inferior hypokinesis. Dilated ascending aorta 4.4 cm. Syncope Suspect this might not be cardiac syncope? History sounds like seizures Would continue telemetry while here, followed by event monitor upon discharge Repeat echo given discrepancy regarding inferior wall motion abnormality DOS 05/30/24. Curly Krueger MD, PhD, [facility] Consumer Safety Officerfood server Interventional Cardiology Division of Cardiology [facility] Pager: [phone] * Luisito Hayden MD - 05/29/2024 12:32 AM CDTAssociated Order(s): IP CONSULT TO VASCULAR NEUROLOGY Images from the original note were not included. [facility] Stroke Consult Note This is NOT a code stroke Yaya Vazquez Jr. Age: [age] year old Date of : 1960 Date of Admission: 05/25/2024 Hospital Day: 4 Subjective Timeline Date LKW 05/28/24 Time LKW 2330 Code Stroke Paged [phone] Arrival at [facility] ED N/A NIHSS Completed 0015 First Imaging Slice 0033 tnk orders placed N/A tnk begun N/A Presenting Blood pressure: 132/95 POC Glucose 121 POC INR N/A History of Present Illness Yaya Vazquez is a 63 year old man with a PMHx of repeat episodes of syncope. Each of these episodes have lasted 30 seconds in the past (most recent on 05/25). Code stroke was called on 05/29/24 at 0008 for an episode of unresponsiveness while his eyes were wide open, not moving extremities, not following commands, non-verbal, w/o urinary/fecal incontinence, w/o tongue biting, w/o . Patientwas in [place] when the code stroke was called. Reported that the patient was sent there, with documented exam of Aox3, R sided deficits (4/5) and R facial droop appreciated. According to day shift nurse, facial droop had subsided earlier in the day. However, still has slurred speech from stroke in01/2024. Patient's current episode of unresponsiveness, post-event confusion, w/ subseq return to baseline have been documented in the past (onset after CABG in 2018). EEG have been negative and Neuroimaging have been negative (most recent MRI on 05/26/24 was negative for acute infarction). CTH: NAICP CTA H/N: No LVO Per Chart Review: Yaya Vazquez Jr. is a 63 year old man who was initially transferred from [facility] fora syncopal episode. Patient was in his wheelchair after finishing a doctor's appointment when he slumped over and was unresponsive for about 30 seconds. His eyes were closed and he was not speaking. Per family he was immediately sweaty. When he came to he was conversant and not confused. EMS arrived and patient's blood pressure was in the 80s systolic (per family). Patient was admitted to [facility] for further workup on 05/22. Per family, patient has been having these episodes since before his CABG in 2018. Family states that his episodes are always about 30 seconds, not associated with abnormal movements, gaze deviation, or post-ictal state. Episodes are not positional. He has never been diagnosed with abnormal heart rh ythm . Sometimes the episodes are associated with coughing. At [facility] patient had an event which he was lethergic, unresponsive and not moving the left hand. A code stroke was activated, CTH negative for bleed or subacute infarct. CTA no LVO. Tele neurologist recommended TNK, which was discussed with the family however they declined at the time given the risks outlined by the pharmacist and ICU attending. Patient also improved rapidly over the period of assessment. Plan was to start on Keppra 500 mg BID IV, unclear if patient received dose. 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 Patient was found to have severe stenosis of the basilar artery and was taken for balloon angioplasty of the proximal basilar artery 01/22 c/b dissection of right distal VA. Patient was dischargedwith PEG (01/29) and trach (02/04) to [facility] 02/14-03/12 and was at [facility] rehab from 03/12 - 04/11. Patient was then living in [facility], however family was not happy with the care there andpatient was brought home with hopes of trying home health. Past Medical history: asthma, anemia chest congestion, confusional arousals, T2DM w/o complication,CAD w/ Angina, Cough syncope, daytime sleepiness, essential HTN, HLD, Inadequate sleep hygiene, Morbid Obesity, Nocturia, CABG x3, snoring, stroke Past Surgical history: Angioplasty, CABG, Colonoscopy/endoscopy Current medications: Allergy Allergies Allergen Reactions Lisinopril Angioedema Lisinopril Other and Urticaria Hives Penicillins Other and Urticaria Hives Pcn [Penicillins] Swelling eyes swelled shut 50 years ago Penicillin V Rash Family History Family History Problem Relation Name Age of Onset Hypertension Father <65 CAD (Coronary Artery Disease) Father <65 Cancer - Ovarian Mother 60s None Known Sister Diabetes - Type 2 Sister Social History Social History Socioeconomic History Marital status: Legally Number of children: 1 Years of education: 16 Highest education level: Bachelor's degree (e.g., BA, AB, BS) Occupational History 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 [employer] 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 [employer] Tobacco Use Smoking status: Former Types: Cigars Start date: 1997 Smokeless tobacco: Never Tobacco comments: 3-4 times / month-2019 says 1x/month Vaping Use Vaping Use: Never used Substance and Sexual Activity Alcohol use: Not Currently Alcohol/week: 10.0 standard drinks of alcohol Types: 10 Standard drinks or equivalent per week Comment: 0-50+ a week Drug use: Not Currently Types: Marijuana Sexual activity: Not Currently Social History Narrative Merged History Encounter Lives in apartment alone Pets none Hobby watch tv, golf Review of Systems 12 point ROS is negative unless otherwise noted in the HPI Objective Patient Vitals for the past 8 hrs: BP Temp Temp src Pulse SpO2 05/29/24 0009 132/95 98.8 ??F (37.1 ??C) -- 81 98 % 05/28/242014 133/81 100 ??F (37.8 ??C) Oral 81 100 % 05/28/24 1701 -- -- -- 76 -- Exam: Mental status: Awake. Not oriented x 0 Language: Non verbal Visual norman: Intact bilaterally Neglect: No appreciable visual or tactile neglect noted. CN 3 - 12: PERRL, Corneals intact b/l , R facial weakness, oculocephalic intact, dysconjugate gaze,cough intact, gag intact, Motor: Tone/bulk/Abnormal movements: None. Objective strength: Patient localizes to pain (in all extremities). Localizes to pain when pressing on nail bed b/l Sensory: PP: Intact throughout Vibration: Deferred Proprioception: Deferred. Cerebellar: Deferred Gait: Deferred Ischemic Stroke Documentation NIHSS Stroke Scale: Interval: Baseline Time: 0020 Person Administering Scale: Luisito Hayden MD 1a Level of consciousness 0 = Alert; keenly responsive. 1b LOC questions 2 = Answers neither question correctly. 1c LOC commands 1 = Performs one task correctly.squeezes fingers 2 Best gaze 0 = Normal. 3 Visual 0 = No visual loss. 4 Facial Palsy 1 = Minor paralysis (flattened nasolabial fold, asymmetry on smiling). 5a Motor Left Arm 3 = No effort against gravity; limb falls. 5b Motor Right Arm 3 = No effort against gravity; limb falls. 6a Motor Left Leg 3 = No effort against gravity; leg falls to bed immediately. 6b Motor Right Leg 3 = No effort against gravity; leg falls to bed immediately. 7 Limb Ataxia 0 = Absent. 8 Sensory 0 = Normal; no sensory loss. 9 Best Language 3 = Mute, global aphasia; no usable speech or auditory comprehension. 10 Dysarthria 2 = Severe dysarthria; patient's speech is so slurred as to be unintelligible in the absence of or out of proportion to any dysphasia, or is mute/anarthric. 11 Extinction/Inattention 0 = No abnormality. Total - 21 TNK - INCLUSION criteria for treatment 0-3 hours from last known well: 1. Age greater than or equal to 18 years old? y 2. Clinical presentation consistent with acute ischemic stroke? n 3. Head CT excludes ICH as primary cause of stroke symptoms? y TNK - EXCLUSION criteria for treatment 0-3 hours from last known well: 1. Current intracranial hemorrhage or subarachnoid hemorrhage? n 2. Active internal bleeding? n 3. Recent (<3 months) intracranial/intra-spinal surgery or serious head trauma? n 4. Presence of intracranial conditions that may increase the risk of bleeding (some neoplasms, AVMs, or aneurysms)? y 5. Bleeding diathesis? n 6. Current severe uncontrolled hypertension? n TNK - Additional EXCLUSION criteria for treatment 3-4.5 hours from last known well: 1. Age greater than 80 years old? n 2. NIHSS greater than 25? n 3. History of stroke and diabetes mellitus? n 4. Oral anticoagulant use regardless of INR? n Tenecteplase Administered? No, Tenecteplase exclusion: Increased Intracranial Risk of Bleeding (Neoplasm/Unsecured Aneurysm/AVM) Large Vessel Occlusion Suspected? No Hospital Problems on Admission: Essential hypertension (POA: Yes) Controlled type 2 diabetes mellitus without complication, without long-term current use of insulin (HCC) (POA: Yes) Altered mental status, unspecified altered mental status type (POA: Yes) Cerebrovascular accident (HCC) (POA: Yes) Cerebrovascular accident (CVA), unspecified mechanism (HCC) (POA: Yes) H/O: CVA (cerebrovascular accident) (POA: Yes) Seizure-like activity (HCC) (POA: Yes) Basilar artery stenosis (POA: Yes) Assessment Patient is a 63 yo male that has repeat episodes of syncope. Each lasting around 30 seconds. Most recent one occurred 05/25 while patient was at a doctors appointment. He was transferred her for further work up from [facility]. A code stroke was called on 05/29/24 for an episode of unresponsive that was documented in the past as well. This episode was first seen by shelbie nurse who received the patient after he was transferred there from [facility]. Patient does not follow full commands, but is able to squeeze fingers. He is also non-verbal during this episode. Patient's transientneurologic process anderson been worked up while he was inpatient with EEG and MRI, which were both negative for seizures and acute ischemic event. Patient is slowly returning to baseline with spontaneous movement of extremities, both with and without noxious stimuli. Plan - MRI on 05/26 confirmed no new stroke - EEG (during this admission) negative for seizure - No further stroke work up Per previous stroke note on 05/28/24: - Will need follow up in Vascular neurology for moderate to severe stenosis of the proximal basilarartery without evidence of complete occlusion and LICA aneurysm. - Follow up with Cardiology outpatient for possible cardiac reasons for syncope. - Continue DAPT and Atorvastatin for secondary stroke prevention - Stat CT head for any change in neurological examination - Head of bed > 30?? - Avoid hypoglycemia, hyponatremia, and hyperthermia - Sodium goals: normal range - BP Goal: less than 160 - Continue puree diet per ST; PT/OT Case findings discussed with Jason Coppola MD Stroke attending/Neurointerventional Fellow. Luisito Hayden MD Neurology Resident. [facility]. Associated attestation - Jason Coppola MD - 06/04/2024 2:33 PM CDT NEUROVASCULAR SERVICE ATTESTATION The above note was reviewed. The patient was seen and examined. I saw and examined the patient with the resident and/or medical student and/or nurse practitioner. I have verified all details of the note and agree with his/her documentation with additions and modifications if listed below. Please refer to the resident's, medical student's, or nurse practitioner's note for plans of active problems not discussed below. Date of Service: 05/29/24 Jason Coppola MD Problem List Essential hypertension (POA: Yes) Controlled type 2 diabetes mellitus without complication, without long-term current use of insulin (HCC) (POA: Yes) Altered mental status, unspecified altered mental status type (POA: Yes) Cerebrovascular accident (HCC) (POA: Yes) Cerebrovascular accident (CVA), unspecified mechanism (HCC) (POA: Yes) H/O: CVA (cerebrovascular accident) (POA: Yes) Seizure-like activity (HCC) (POA: Yes) Basilar artery stenosis (POA: Yes) See Resident note for the remaining problem specific plan. * Tarah Tabares RN - 05/28/2024 1:27 PM CDT CM acknowledges consult. * Brooke Ma RN - 05/28/2024 7:20 AM CDTAssociated Order(s): IP CONSULT TO PHYSICAL MED AND REHAB [facility] Rehab has received a referral from stroke protocol. Patient is currently admitted to . Therapy recommendations are home with . Should patient wish to pursue rehab prior to returning home, please reach out. [facility] Rehab to Sign off at this time. Will continue to monitor for medical stability and participation in therapies. Thank you for the referral! Brooke Ma RN, BSN Clinical Liaison [facility] Secure Epic Chat [phone] * Elma Jean - 05/26/2024 3:56 PM CDTAssociated Order(s): IP CONSULT TO PASTORAL CARE responded to Pastoral Care consult for Mr. Vazquez who was sitting up in a chair with his sister/POKirill Barajas at bedside. His voice was weak but he was able to speak softly; he shared he was doing OK and that this wasn't the first time he had sat up. Mr. Vazquez said, You should havebeen here earlier but wasn't able to clarify what he meant by that. Prevocational/Rehabilitation Counselor offered to pray with him and Jenn for his continued healing and recovery, and did so when he said yes. Prevocational/Rehabilitation Counselor assured him and Jenn of continued prayers. chaplain Jaskaran Ascom [phone] technical services consultant [phone] * Ana Hu RD/TG - 05/26/2024 12:56 PM CDTAssociated Order(s): IP CONSULT TO NUTRITIONAL SERV; IP CONSULT TO NUTRITIONAL SERV Clinical Nutrition Assessment Brief Synopsis: Patient is at Nutrition Risk; Specific criteria can be found in assessment below Nutrition Plan: Current diet order: NPO Tube Feeding Recommendations -- or equivalent: Bolus (only with NGT/OGT/PEG-tube): Jevity 1.5 at 70 ml/hr. Provides 2520 kcal, 107 g protein, 362 g carbohydrate, 1277 ml free water. +200 ml free water flush q 4 hrs, or per MD, if not on additional IV fluids Recommend starting at 20 ml/hr and increase by 10 ml q 4 hrs until tolerating at goal. TF considerations: - If patient cannot swallow/tolerate oral intake, NPO diet order must be placed (even if tube feeding already ordered). - Do not hold unless residuals >500 as recommended by ASPEN. - Signs of intolerance include: diarrhea, abdominal pain or distention. - Head of bed > 30??. Recommendations to Physician: Establish nutrition source -- see recs above Obtain lipid profile and A1C per protocol Comments: RD consulted per stroke protocol and for MST of 2 with unsure weight loss and at-home TF/TPN, per nurse nutrition screen. Per neurology note, pt being worked up for TIA stroke. A/Ox3. Notedpt failed RN bedside swallow eval. Remains on NPO orders. Weight hx reveals weight trending down slowly -- not considered significant per ASPEN. No significant GI issues noted in chart recently. LastBM 05/25. Labs reviewed -- Mg (1.3). Noted pt received bolus IV Mg sulfate this AM, per DEC. No lipid profile appears collected this admission. No A1C appears collected this admission; hx of T2DM noted in chart. Recent A1C = 7.1% (05/22/24). Pt not appropriate for in-person diet education at this time. Recommend establishing source for nutrition; refer to recs above as indicated. RD to follow per clinical nutrition guidelines. Assessment: Med/Surg History and Clinical Diagnoses: 63 year old male who has a PMH of CAD s/p CABG, obesity, HTN, HLD, T2DM, ischemic stroke of the left midbrain and left thalamus 01/2024, basilar artery stenosis s/p angioplasty. Height: 193 cm (6' 4 ) Weight: 129 kg (284 lb 6.3 oz) BMI: Body mass index is 34.62 kg/m??. 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 Diet order accuracy Current diet order: NPO Nutrition recommendation: alter/change nutrition order P.O.Intake for the past 48 hrs: No data recorded Supplement(s) Consumed- Last 48 hours None Food Allergies: No known food allergies GI Concerns: None Chewing/Swallowing: (NPO - failed RN bedside swallow) Pain affecting intake: No Estimated Needs: KCAL: 9646-3222 (25-30 kcal/kg IBW) Protein (g): 92-110g (1.0-1.2 g/kg IBW) Fluid (ml): 1 ml/kcal Needs based on: Kcal/kg- (Comment) (IBW of 91.8kg) Recommended Access Route: TF Laboratory values: Recent Labs Component Name 05/26/24 0827 05/17/24 1024 04/10/24 0755 03/13/24 0309 03/11/24 0400 03/10/24 1309 07/26/22 1653 12/24/19 0923 09/06/18 0318 09/04/18 0956 03/22/18 1147 01/29/18 0620 01/28/18 0655 01/24/18 1542 01/24/18 1345 01/24/18 1247 01/24/18 0953 01/11/18 1548 11/09/17 1521 11/19/15 0923 BUN 14 18 23 - 28* 23 - 11 14 9 - 12 9 - - - - 15 18 14 CREATININE 0.67* 0.88 1.05 - 0.95 0.92 - 0.97 0.97 0.88 - 1.0 0.9 - - - - 0.9 0.95 0.93 NA 139 - - - - - - - - - - 136 136 - - - - 140 138 140 POTASSIUM 3.8 4.8 4.5 - 4.3 4.6 - 4.0 3.5 4.1 - 3.9 3.3* - - - - 4.1 - - K - - - - - - - - - - - - - - 5.2 6.1* 4.6 - 4.0 4.4 CL 110* - - - - - - - - - - 97* 97* - - - - 102 100 106 CO2 21* 26 28 - 24 22 - 29 28 28 - 26 30* - - - - 27 30 26 GLU - - - - - - - - - - - - - - - - - - 86 105* GLUCOSE 101 127* 143* - 167* 160* - 187* 141* 126* - 170* 144* - - - - 81 - - CALCIUM 8.1* 9.7 10.2 - 9.6 10.0 - 8.6 8.5 8.4* - 9.1 8.7 - - - - 9.6 9.7 9.2 PROT - - - - - - - - - - - - - - - - - 8.2 - 7.4 ALB - - - - - - - - - - - - - - - - - 3.8 - 4.1 TBILI - - - - - - - - - - - - - - - - - 0.7 - 0.3 ALKPHOS - 59 - - 69 65 - 71 - 76 - - - - - - - 56 - 49 ALT - 22 - - 18 20 - 14 - 18 - - - - - - - 13 - 14 AST - 15 - - 15 16 - 14 - 17 - - - - - - - 14 - 14 ANIONGAP 8 9 8 - 12 13 - - 7* 5* - 17 12 - - - - 15 - - BCR 21 - - - - - - - - - - 12 10 - - - - 17 NOT APPLICABLE NOT APPLICABLE OSMOLALITY 289 - - - - - - - - - - 286 283 - - - - 290 - - AGRATIO - - - - - - - - - - - - - - - - - 0.9* - 1.2 EGFR >90 >90 79* - 89* >90 - 84 >60 >60 - >60 >60 - - - - >60 - - EGFRAFR - - - - - - - 97 >60 >60 - - - - - - - - - - - = values in this interval not displayed. Medications: Current Facility-Administered Medications Medication 0.9% NaCl injection 3 mL And 0.9% NaCl injection 1-10 mL acetaminophen (Tylenol) tablet 650 mg albuterol (Proventil;Ventolin) (5 MG/ML) 0.5% nebulizer solution 2.5 mg albuterol-ipratropium (Duo-Neb) nebulizer solution 3 mL amLODIPine (Norvasc) tablet 10 mg aspirin chew tablet 81 mg atorvastatin (Lipitor) tablet 40 mg bisacodyl (Dulcolax) suppository 10 mg busPIRone (Buspar) tablet 5 mg clopidogrel (plaVIX) tablet 75 mg famotidine (Pepcid) tablet 20 mg folic acid (Folvite) tablet 1 mg heparin injection 5,000 Units magnesium sulfate 2 g in 50 mL bolus polyethylene glycol 3350 (Miralax) packet 17 g senna-docusate (Senokot-S) tablet 1 tablet sodium phosphate rectal (Fleet Saline) enema 133 mL thiamine (Vitamin B-1) tablet 100 mg Skin/Wound: WDL Education needed: Stroke Nutrition Therapy Education Provided: Not appropriate Nutrition Care Process (1) Nutrition Diagnostic Statement: Inadequate protein-energy intake related to:: decreased ability to consume or tolerate adequate food and/or fluids due to illness;swallowing difficulty as evidenced by:: oral intake less than .. (NPO) Nutrition Diagnostic Statement Progress: New diagnostic statement established Nutrition Intervention: Enteral nutrition: Monitoring: Diet advancement (PO intake vs TF), BM, labs, meds, weight Evaluation: Nutrition Goal: Total intake will meet estimated nutrient needs Nutrition Goal Timeframe: Throughout stay Nutrition Goal Progress: New goal established Ana Hu MS, RD/RDN, LD Ascom: [phone] * Brooke Ma RN - 05/26/2024 8:34 AM CDTAssociated Order(s): IP CONSULT TO PHYSICAL MED AND REHAB [facility] Rehab has received a referral from stroke protocol. Patient is currently admitted on 3N and is pending medical work up. Per chart review, patient has traditional MCR and will not require insurance authorization for postacute care. if appropriate. Will continue to monitor for medical stability and participation in therapies. Thank you for the referral! Brooke Ma RN, BSN Clinical Liaison [facility] Secure Epic Chat [phone] * Crystal Asher MD - 05/25/2024 10:58 PM CDT Images from the original note were not included. [facility] NCC Consult Note Yaya Vazquez Jr. Age: [age] year old Date of : 1960 Date of Admission: 05/25/2024 Hospital Day: 0 Subjective History of Present Illness Yaya Vazquez Jr. 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 Also has hx of CAD s/p CABG, obesity, HTN, HLD, DM II. Today he was in his wheelchair after a doctors appointment when we suddenly slumped over and was unresponsive for about 30 seconds. When he came around he was conversant and not confused, SBP was in the 80s. He was taken to [facility] for further workup. There on the morning of he was 05/25 he was not responding, not moving left side, eyes were open. Code stroke was called, CT with no acute changes. Ultimately decided not to proceed with TNK and was transferred to u for further care Past Medical history: CAD s/p CABG, obesity, HTN, HLD, DM II, ischemic stroke Past Surgical history: Past Surgical History: Procedure Laterality Date ANGIOPLASTY COLONOSCOPY N/A 11/12/2020 N/A; COLONOSCOPY SCREEN Coronary Artery Bypass Graft N/A 01/24/2018 N/A; Coronary artery bypass graft x 3 ENDOSCOPY, UPPER N/A 01/30/2024 N/A; ESOPHAGOGASTRODUODENOSCOPY (EGD) WITH PEG PLACEMENT ENDOSCOPY, UPPER N/A 03/17/2024 N/A; ESOPHAGOGASTRODUODENOSCOPY (EGD) WITH PEG PLACEMENT Tonsillectomy Current Medications acetaminophen (Tylenol) 325 MG tablet 2 (two) [...] (eighteen) Units subcutaneously every 6 hours insulin lispro (HumaLOG) 100 UNIT/ML vial Inject [...] tablet by Enteral Tube route once daily Allergy Allergies Allergen Reactions Lisinopril Angioedema Lisinopril Other and Urticaria Hives Penicillins Other and Urticaria Hives Pcn [Penicillins] Swelling eyes swelled shut 50 years ago Penicillin V Rash Family History Family History Problem Relation Name Age of Onset Hypertension Father <65 CAD (Coronary Artery Disease) Father <65 Cancer - Ovarian Mother 60s None Known Sister Diabetes - Type 2 Sister Social History Social History Socioeconomic History Marital status: Legally Number of children: 1 Years of education: 16 Highest education level: Bachelor's degree (e.g., BA, AB, BS) Occupational History 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 [employer] Occupation: [employer] Tobacco Use Smoking status: Former Types: Cigars Start date: 1997 Smokeless tobacco: Never Tobacco comments: 3-4 times / month-2020 says 1x/month Vaping Use Vaping Use: Never used Substance and Sexual Activity Alcohol use: Not Currently Alcohol/week: 10.0 standard drinks of alcohol Types: 10 Standard drinks or equivalent per week Comment: 0-50+ a week Drug use: Not Currently Types: Marijuana Sexual activity: Not Currently Social History Narrative Merged History Encounter Lives in apartment alone Pets none Hobby watch tv, golf Review of Systems As per HPI Objective Patient Vitals for the past 8 hrs: BP Temp Temp src Pulse Resp SpO2 05/25/24 2100 135/90 -- -- 70 18 99 % 05/25/241999 125/85 98.8 ??F (37.1 ??C) Axillary 74 24 97 % 05/25/24 192 125/85 98.8 ??F (37.1 ??C) Axillary 74 24 97 % Exam: Mental status: Awake, alert, Follows commands. Oriented x 2 Language: dyasarthric, comprehension intact, repetition intact. Visual norman: Intact bilaterally to confrontation. Neglect: No appreciable visual or tactile neglect noted. CN 3 - 12: right UMN facial palsy Motor: Tone/bulk/Abnormal movements: None. Objective strength: Proximal Upper Distal Upper Proximal Lower Distal Lower Right -4/5 -4/5 -4/5 -4/5 Left 4/5 4/5 4/5 4/5 Sensory LT: intact Cerebellar FNF Right Dysmetria-severe Left Dysmetria-mod Gait Deferred Imaging: Hospital Problems on Admission: Cerebrovascular accident (CVA), unspecified mechanism (HCC) (POA: Unknown) Assessment Yaya Vazquez Jr. is a 63 year old male presenting for episode of non responsiveness and not moving left side, now back to baseline. CTH with no acute changes. Plan Neurological Transient left side weakness - Neurological check q1h. - Pupillometer checks q1h. (Make sure appropriate order is in place and NPI is documented by RN). - Aspirin 81 - Statin lipitor 40mg daily - Head of bed > 30?? - Avoid hypoglycemia, hyponatremia, and hyperthermia Analgosedation: tylenol Cardiovascular Pulse Min: 70 Max: 74, BP Min: 125/85 Max: 135/90 HTN - amlodipine CAD - asa + plavix Respiratory No active issues - Aspiration precautions - Elevate head of bed - Maintain oxygen saturation > 92% - Monitor for respiratory distress Renal/Electrolytes No intake or output data in the 24 hours ending 05/25/24 7289 No active issues - Monitor intake and output - Replete electrolytes as needed Infectious Disease Temp (24hrs), Av.8 ??F (37.1 ??C), Min:98.8 ??F (37.1 ??C), Max:98.8 ??F (37.1 ??C) No active issues - Monitor for fevers - [place] culture if febrile Gastrointestinal GERD - Famotidine - 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: pending - Diet: npo - GI ppx: not indicated - Last BM: GROWTH MEDIA MIXER MUSHROOM - BM regimen: senna + miralax Endocrine No active issues - f/u A1C - Accuchecks + SSI Hematology Recent Labs Component Name 05/17/24 1024 WBC 7.4 HGB 10.3* HCT 33.3* PLTCOUNT 268 No active issues DVT ppx: scd Musculoskeletal No active issues Disposition - PT/OT pending Feeds/Fluids: npo Analgesia: tylenol Sedation: none Thromboprophylaxis: scd HOB: 30 Ulcer Ppx: on famotidine Glucose: Accuchecks SBT: n/a BR: senna and miralax Indwelling lines: PIV De-escalation: daily evaluation Crystal Asher MD Neurology Resident. PGY-4 [facility]. documented in this encounter Miscellaneous Notes * Significant Event - Ruslan Garza MD - 05/29/2024 12:27 PM CDT Overnight patient had a presyncopal episode, seen this morning is alert and oriented, family is very concerned, had a discussion with the neuro intervention, requesting to transfer back [facility]. Patient will be transferred. 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 [place] [address] 02/10/2025 10:00 AM CDT Office Visit [facility] - Cardiology [address] [facility], [facility] [address] [place] [address] Curly Krueger MD [address] [phone] Scheduled Referrals Name Type Priority Associated Diagnoses Orde r Schedule Referral to [facility] Outpatient Referral Routine Syncope, unspecified syncope type 1 Occurrences starting 06/04/2024 until 06/02/2025 documented as of this encounter Procedures Procedure Name Priority Date/Time Associated Diagnosis Comments GLUCOSE - POINT OF CARE Routine 06/04/2024 4:42 PM CDT GLUCOSE - POINT OF CARE Routine 06/04/2024 11:55 AM CDT CBC W/O DIFFERENTIAL Routine 06/04/2024 11:30 AM CDT BASIC METABOLIC PANEL (CALCIUM TOTAL) Routine 06/04/2024 11:30 AM CDT PHOSPHORUS BLOOD Routine 06/04/2024 11:3 0 AM CDT MAGNESIUM BLOOD Routine 06/04/2024 11:30 AM CDT GLUCOSE - POINT OF CARE Routine 06/04/2024 8:15 AM CDT GLUCOSE - POINT OF CARE Routine 06/03/2024 8:38 PM CDT GLUCOSE - POINT OF CARE Routine 06/03/2024 4:19 PM CDT ECHO COMPLETE W CONTRAST W BUBBLE STUDY Routine 06/03/2024 3:15 PM CDT Syncope, unspecified syncope type FL SWALLOWING FUNCTION STUDY STAT 06/03/2024 2:00 PM CDT Cerebrovascular accident (CVA), unspecified mechanism (HCC) Dysphagia, unspecified type GLUCOSE - POINT OF CARE Routine 06/03/2024 12:14 PM CDT GLUCOSE - POINT OF CARE Routine 06/03/2024 7:58 AM CDT CBC W/O DIFFERENTIAL Routine 06/03/2024 5:56 AM CDT BASIC METABOLIC PANEL (CALCIUM TOTAL) Routine 06/03/2024 5:56 AM CDT PHOSPHORUS BLOOD Routine 06/03/2024 5:56 AM CDT MAGNESIUM BLOOD Routine 06/03/2024 5:56 AM CDT GLUCOSE - POINT OF CARE Routine 06/02/2024 7:51 PM CDT GLUCOSE - POINT OF CARE Routine 06/02/2024 6:06 PM CDT GLUCOSE - POINT OF CARE Routine 06/02/2024 11:24 AM CDT GLUCOSE - POINT OF CARE Routine 06/02/2024 8:14 AM CDT CBC W/O DIFFERENTIAL Routine 06/02/2024 5:13 AM CDT BASIC METABOLIC PANEL (CALCIUM TOTAL) Routine 06/02/2024 5:13 AM CDT PHOSPHORUS BLOOD Routine 06/02/2024 5:13 AM CDT MAGNESIUM BLOOD Routine 06/02/2024 5:13 AM CDT GLUCOSE - POINT OF CARE Routine 06/01/2024 7:51 PM CDT CBC W/O DIFFERENTIAL Routine 06/01/2024 5:28 AM CDT BASIC METABOLIC PANEL (CALCIUM TOTAL) Routine 06/01/2024 5:28 AM CDT PHOSPHORUS BLOOD Routine 06/01/2024 5:28 AM CDT MAGNESIUM BLOOD Routine 06/01/2024 5:28 AM CDT GLUCOSE - POINT OF CARE Routine 05/31/2024 8:24 PM CDT GLUCOSE - POINT OF CARE Routine 05/31/2024 4:49 PM CDT GLUCOSE - POINT OF CARE Routine 05/31/2024 11:53 AM CDT GLUCOSE - POINT OF CARE Routine 05/31/2024 8:10 AM CDT CBC W/O DIFFERENTIAL Routine 05/31/2024 5:47 AM CDT BASIC METABOLIC PANEL (CALCIUM TOTAL) Routine 05/31/2024 5:47 AM CDT PHOSPHORUS BLOOD Routine 05/31/2024 5:47 AM CDT MAGNESIUM BLOOD Routine 05/31/2024 5:47 AM CDT GLUCOSE - POINT OF CARE Routine 05/30/2024 9:33 PM CDT GLUCOSE - POINT OF CARE Routine 05/30/2024 5:33 PM CDT GLUCOSE - POINT OF CARE Routine 05/30/2024 11:56 AM CDT GLUCOSE - POINT OF CARE Routine 05/30/2024 8:10 AM CDT TSH REFLEX FREE T4 Routine 05/30/2024 4: 32 AM CDT CBC W/O DIFFERENTIAL Routine 05/30/2024 4:32 AM CDT BASIC METABOLIC PANEL (CALCIUM TOTAL) Routine 05/30/2024 4:32 AM CDT PHOSPHORUS BLOOD Routine 05/30/2024 4:32 AM CDT MAGNESIUM BLOOD Routine 05/30/2024 4:32 AM CDT GLUCOSE - POINT OF CARE Routine 05/30/2024 4:24 AM CDT GLUCOSE - POINT OF CARE Routine 05/29/2024 10:57 PM CDT GLUCOSE - POINT OF CARE Routine 05/29/2024 3:05 PM CDT GLUCOSE - POINT OF CARE Routine 05/29/2024 11:19 AM CDT EKG 12-LEAD STAT 05/29/2024 8:41 AM CDT Syncope, unspecified syncope type GLUCOSE - POINT OF CARE Routine 05/29/2024 8:[address] ANGIO BRAIN NECK STROKE STAT 05/29/2024 1:28 AM CDT Cerebrovascular accident (CVA), unspecified mechanism (HCC) CREATININE - POCT INTERFACED Routine 05/29/2024 12:42 AM CDT INR WHOLE BLOOD - POINT OF CARE (IP) STROKE Routine 05/29/2024 12:[address] BRAIN STROKE STAT 05/29/2024 12:34 AM CDT Cerebrovascular accident (CVA), unspecified mechanism (HCC) GLUCOSE - POINT OF CARE Routine 05/29/2024 12:22 AM CDT CBC W/O DIFFERENTIAL Routine 05/29/2024 12:04 AM CDT BASIC METABOLIC PANEL (CALCIUM TOTAL) Routine 05/29/2024 12:04 AM CDT PHOSPHORUS BLOOD Routine 05/29/2024 12:0 4 AM CDT MAGNESIUM BLOOD Routine 05/29/2024 12:04 AM CDT GLUCOSE - POINT OF CARE Routine 05/28/2024 10:09 PM CDT GLUCOSE - POINT OF CARE Routine 05/28/2024 4:42 PM CDT GLUCOSE - POINT OF CARE Routine 05/28/2024 12:02 PM CDT GLUCOSE - POINT OF CARE Routine 05/28/2024 8:05 AM CDT CBC W/O DIFFERENTIAL Routine 05/28/2024 4:46 AM CDT BASIC METABOLIC PANEL (CALCIUM TOTAL) Routine 05/28/2024 4:46 AM CDT PHOSPHORUS BLOOD Routine 05/28/2024 4:46 AM CDT MAGNESIUM BLOOD Routine 05/28/2024 4:46 AM CDT GLUCOSE - POINT OF CARE Routine 05/27/2024 10:41 PM CDT GLUCOSE - POINT OF CARE Routine 05/27/2024 5:18 PM CDT GLUCOSE - POINT OF CARE Routine 05/27/2024 12:21 PM CDT GLUCOSE - POINT OF CARE Routine 05/27/2024 8:31 AM CDT CBC W/O DIFFERENTIAL Routine 05/27/2024 3:23 AM CDT BASIC METABOLIC PANEL (CALCIUM TOTAL) Routine 05/27/2024 3:23 AM CDT PHOSPHORUS BLOOD Routine 05/27/2024 3:23 AM CDT MAGNESIUM BLOOD Routine 05/27/2024 3:23 AM CDT GLUCOSE - POINT OF CARE Routine 05/26/2024 9:[address] ANGIO BRAIN AND NECK STAT 05/26/2024 5:26 PM CDT Cerebrovascular accident (CVA), unspecified mechanism (HCC) MRI BRAIN WO CONTRAST STAT 05/26/2024 4:40 PM CDT Cerebrovascular accident (CVA), unspecified mechanism (HCC) GLUCOSE - POINT OF CARE Routine 05/26/2024 8:27 AM CDT CBC W AUTO DIFFERENTIAL Routine 05/26/2024 8:27 AM CDT BASIC METABOLIC PANEL (CALCIUM TOTAL) Routine 05/26/2024 8:27 AM CDT PHOSPHORUS BLOOD Routine 05/26/2024 8:27 AM CDT MAGNESIUM BLOOD Routine 05/26/2024 8:27 AM CDT documented in this encounter Results * (ABNORMAL) GLUCOSE - POINT OF CARE (06/04/2024 4:42 PM CDT) Glucose WB/POC 120(H) 70 - 115 mg/dL 06/04/2024 7:23 PM CDT [facility] Specimen Type Cap Fingerstick 2023 7:23 PM CDT [facility] Blood BLOOD SPECIMEN / Unknown 06/04/2024 4:42 PM CDT 06/04/2024 7:23 PM CDT Farhat Enamorado MD LAB - POINT OF CARE ORDERABLES Performing Organization Address City/State/[facility] Co de Phone Number [facility] [address] [place] [phone], [facility] [phone] * (ABNORMAL) GLUCOSE - POINT OF CARE (06/04/2024 11:55 AM CDT) Glucose WB/POC 193(H) 70 - 115 mg/dL 06/04/2024 4:36 PM CDT [facility] Specimen Type Cap Fingerstick 2023 4:36 PM CDT [facility] Blood BLOOD SPECIMEN / Unknown 06/04/2024 11:55 AM CDT 06/04/2024 4:36 PM CDT Farhat Enamorado MD LAB - POINT OF CARE ORDERABLES Performing Organization Address City/[facility]/ZIP Co de Phone Number [address] [address], [place] [phone] * PHOSPHORUS BLOOD (06/04/2024 11:30 AM CDT) Phosphorus 4.3 2.8 - 5.1 mg/dL 06/04/2024 12:27 PM CDT [facility] Blood BLOOD SPECIMEN / Unknown Lab Venipuncture / Unknown 06/04/2024 11:30 AM CDT 06/04/2024 11:51 AM CDT Jason Coppola MD LAB - CHEMISTRY CHRISTIAN RAZO Performing Organization Address [facility]/ZIP Co de Phone Number [address] [address], [place] [phone] * MAGNESIUM BLOOD (06/04/2024 11:30 AM CDT) Magnesium 1.6 1.6 - 2.6 mg/dL 06/04/2024 12:27 PM CDT [facility] Blood BLOOD SPECIMEN / Unknown Lab Venipuncture / Unknown 06/04/2024 11:30 AM CDT 06/04/2024 11:51 AM CDT Jason Coppola MD LAB - CHEMISTRY CHRISTIAN RAZO Performing Organization Address City/[facility]/ZIP Co de Phone Number [address] [address], [place] [phone] * (ABNORMAL) CBC W/O DIFFERENTIAL (06/04/2024 11:30 AM CDT) WBC 7.7 4.0 - 10.7 x10E9/L 06/04/2024 11:57 AM CDT [facility] RBC Count 4.14(L) 4.30 - 5.80 x10E12/L 06/04/2024 11:57 AM [facility] Hemoglobin 10.9(L) 13.3 - 17.5 g/dL 06/04/2024 11:57 AM [facility] Hematocrit 34.3(L) 38.7 - 51.1 % 06/04/2024 11:57 AM [facility] MCV 82.9 80.0 - 98.0 fL 06/04/2024 11:57 AM [facility] MCH 26.3(L) 26.7 - 33.6 pg 06/04/2024 11:57 AM [facility] MCHC 31.8 31.7 - 36.3 g/dL 06/04/2024 11:57 AM [facility] RDW-CV 14.8 11.3 - 14.8 % 06/04/2024 11:57 AM [facility] Platelet Count 292 150 - 420 x10E9/L 06/04/2024 11:57 AM [facility] MPV 9.4 7.8 - 11.4 fL 06/04/2024 11:57 AM [facility] Blood BLOOD SPECIMEN / Unknown Lab Venipuncture / Unknown 06/04/2024 11:30 AM CDT 06/04/2024 11:51 AM CDT Jason Coppola MD LAB - HEMATOLOGY ORD ERABLES [address] [address], [facility] [phone] * (ABNORMAL) BASIC METABOLIC PANEL (CALCIUM TOTAL) (06/04/2024 11:30 AM CDT) BUN 18 7 - 26 mg/dL 06/04/2024 12:27 PM [facility] Creatinine 0.78 0.71 - 1.16 mg/dL 06/04/2024 12:27 PM [facility] Sodium 135(L) 136 - 145 mmol/L 06/04/2024 12:27 PM [facility] Potassium 4.1 3.5 - 4.5 mmol/L 06/04/2024 12:27 PM [facility] Chloride 102 98 - 107 mmol/L 06/04/2024 12:27 PM [facility] CO2 25 22 - 29 mmol/L 06/04/2024 12:27 PM [facility] Glucose 138(H) 70 - 115 mg/dL 06/04/2024 12:27 PM [facility] Calcium 9.6 8.4 - 10.2 mg/dL 06/04/2024 12:27 PM [facility] Anion Gap 8 6 - 16 06/04/2024 12:27 PM [facility] BUN/Creatinine Ratio 23 7 - 23 06/04/2024 12:27 PM [facility] Osmolality Calculated 284 275 - 295 mOsm/kg 06/04/2024 12:27 PM [facility] eGFR by CKD-EPI >90 >=90 mL/min/1.7 3 m2 06/04/2024 12:27 PM [facility] Blood BLOOD SPECIMEN / Unknown Lab Venipuncture / Unknown 06/04/2024 11:30 AM CDT 06/04/2024 11:51 AM CDT Jason Coppola MD LAB - CHEMISTRY CHRISTIAN RAZO [address] [address], [facility] [phone] * (ABNORMAL) GLUCOSE - POINT OF CARE (06/04/2024 8:15 AM CDT) Glucose WB/POC 130(H) 70 - 115 mg/dL 06/04/2024 9:31 AM T [facility] Specimen Type Cap Fingerstick 2023 9:31 AM T [facility] Blood BLOOD SPECIMEN / Unknown 06/04/2024 8:15 AM CDT 06/04/2024 9:31 AM CDT Farhat Enamorado MD LAB - POINT OF CARE ORDERABLES [address] [place] [address], [place] [phone] * (ABNORMAL) GLUCOSE - POINT OF CARE (06/03/2024 8:38 PM CDT) Glucose WB/POC 201(H) 70 - 115 mg/dL 06/03/2024 8:46 PM CDT [facility] Specimen Type Cap Fingerstick 2023 8:46 PM CDT [facility] Blood BLOOD SPECIMEN / Unknown 06/03/2024 8:38 PM CDT 06/03/2024 8:46 PM CDT Farhat Enamorado MD LAB - POINT OF CARE ORDERABLES [address] [address], [place] [phone] * (ABNORMAL) GLUCOSE - POINT OF CARE (06/03/2024 4:19 PM CDT) Pathologist [facility] Glucose WB/POC 130(H) 70 - 115 mg/dL 06/03/2024 4:26 PM CDT [facility] Specimen Type Arterial 06/03/2024 4:26 PM CDT [facility] Blood BLOOD SPECIMEN / Unknown 06/03/2024 4:19 PM CDT 06/03/2024 4:26 PM CDT Farhat Enamorado MD LAB - POINT OF CARE ORDERABLES [facility] [address] [place] [address], [place] [phone] * ECHO COMPLETE W CONTRAST W BUBBLE STUDY (06/03/2024 3:15 PM CDT) LA vol index 0.013 l/m? ? ? [facility] CV FUJI PACS LA vol BP 31.411 ml [facility] CV FUJ I PACS Sinus of Valsalva 4.192 cm [facility] CV FUJI PACS Myocardial strain charge 2 unitless [facility] CV FUJI PACS IVSd 2D 1.086 cm [facility] CV [facility]J I PACS LVIDd 4.721 cm [facility] CV [facility] I PACS LVIDs 2.741 cm [facility] CV [facility] I PACS LVOT diam 2.122 cm [facility] CV [facility] I PACS LVPWd 1.352 cm [facility] CV [facility] I PACS LV biplane EF 66.142 % [facility] LV A2C EF 73.827 % [facility] I PACS LV A4C EF 55.987 % [facility] CV [facility] I PACS LV EDV A2C 138.48 ml [facility] CV FU JI PACS LV EDV A4C 145.005 ml [facility] CV FU JI PACS LV ESV A2C 36.244 ml [facility] CV FU JI PACS LV ESV A4C 63.821 ml [facility] CV FU JI PACS LVOT pk richard 94.742 cm/s SSM CV F UJI PACS LVOT VTI 12.263 cm [facility] CV [facility] I PACS RVIDd 3.519 cm [facility] CV [facility] I PACS RVOT diam Doppler 1.833 cm [facility] RVOT pk richard 84.812 cm/s S[facility] CV F U PACS RVOT VTI 12.156 cm [facility] CV [facility] I PACS LA size 3.649 cm S[facility] CV [facility] I PACS AV mn grad 4.064 mmHg SSM CV FU JI PACS AV pk richard 148.818 cm/s S[facility] CV [facility] I PACS AV VTI 19.035 cm [facility] CV [facility] I PACS MV A pk richard 68.508 cm/s SSM CV F UJI PACS MV E pk richard 44.33 cm/s SSM CV F UJI PACS MV E' lateral richard 9.638 cm/s [facility] MV mn grad 1.466 mmHg S[facility] CV FU JI PACS MV VTI 21.081 cm S[facility] CV [facility] I PACS PV pk richard 96.329 cm/s S[facility] CV [facility] I PACS PV VTI 12.497 cm SSM CV [facility] I PACS TAPSE 1.413 cm SSM CV [facility] I PACS Ascending aorta 3.385 cm [facility] Diam Expiration 0.57 cm [facility] Anatomical Region Laterality Modality Ultrasound [...] significant valve disease. Patient Info Name: ? Yaya ?? George Age: ? 63 years : ? 1960 Gender: ? Male Accession #: ? [id number] Ht: ? 64 in Wt: ? 284 lb BSA: ? 2.49 m2 HR: ? 82 bpm BP: ? 125 / ? 80 mmHg Exam Date: ? 06/03/2024 1:14 PM Patient Status: ? I/P Study Site: ? [facility] Primary Location: ? [facility] Info Technical Quality: ? Adequate Exam Type: ? ECHO COMPLETE W CONTRAST W BUBBLE STUDY Indications ?R55 - Syncope, ??unspecified syncope type Procedure(s) ??* A complete 2D, color Doppler, spectral Doppler and M-Mode transthoracic echocardiogram was performed. Contrast/Agitated Saline Contrast / Saline: ? Definity Amount: ? 0.50 ml Administered By: ? Isabella Hendricksncil Reaction to Contrast: ? no Contrast / Saline: ? Agitated Saline Amount: ? 20.00 ml Administered By: ? Isabella Cisneros Reaction to Contrast: ? no Staff Referring Physician: ? Perfecto Hatch Ordering Provider: ? Perfecto Hatch Attending Physician: ? Perfecto Hatch [facility] Technical Officer: ? Isabella Cisneros Left Ventricle ??Left ventricular systolic function is [...] Volume Index (BP MOD) ?13 ml/m2 ? 1634 Report Signatures Finalized by Lulu ??Timo on [...] hemodynamically significant valve disease. Patient Info Name: Yaya Vazquez Age: 63 years : 1960 Gender: Male Ht: 64 in Wt: 284 lb BSA: 2.49 m2 HR: 82 bpm BP: 125 / 80 mmHg Exam Date: 06/03/2024 1:14 PM Patient Status: I/P Study Site: [facility] Primary Location: [facility] Info Technical Quality: Adequate Exam Type: ECHO COMPLETE W CONTRAST W BUBBLE STUDY Indications R55 - Syncope, unspecified syncope type Procedure(s) * A complete 2D, color Doppler, spectral Doppler and M-Modetransthoracic echocardiogram was performed. 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 * FL SWALLOWING FUNCTION STUDY (06/03/2024 2:00 PM CDT) Anatomical Region Laterality Modality Chest [...] Farhat Enamorado MD FLUOROSCOPY ORDERAB LES * (ABNORMAL) GLUCOSE - POINT OF CARE (06/03/2024 12:14 PM CDT) Glucose WB/POC 150(H) 70 - 115 mg/dL 06/03/2024 4:26 PM CDT [facility] Specimen Type Arterial 06/03/2024 4:26 PM CDT [facility] Blood BLOOD SPECIMEN / Unknown 06/03/2024 12:14 PM CDT 06/03/2024 4:26 PM CDT Farhat Enamorado MD LAB - POINT OF CARE ORDERABLES [address] [address], [facility] [phone] * (ABNORMAL) GLUCOSE - POINT OF CARE (06/03/2024 7:58 AM CDT) Glucose WB/POC 140(H) 70 - 115 mg/dL 06/03/2024 8:03 AM CDT [facility] Specimen Type Arterial 06/03/2024 8:03 AM CDT [facility] Blood BLOOD SPECIMEN / Unknown 06/03/2024 7:58 AM CDT 06/03/2024 8:03 AM CDT Farhat Enamorado MD LAB - POINT OF CARE ORDERABLES [facility] [address] [place] [address], [place] [phone] * PHOSPHORUS BLOOD (06/03/2024 5:56 AM CDT) Pathologist [facility] Phosphorus 4.1 2.8 - 5.1 mg/dL 06/03/2024 6:39 AM CDT [facility] Blood BLOOD SPECIMEN / Unknown Lab Venipuncture / Unknown 06/03/2024 5:56 AM CDT 06/03/2024 6:11 AM CDT Jason Coppola MD LAB - CHEMISTRY CHRISTIAN RAZO [address] [address], [place] [phone] * (ABNORMAL) MAGNESIUM BLOOD (06/03/2024 5:56 AM CDT) Pathologist [facility] Magnesium 1.5(L) 1.6 - 2.6 mg/dL 06/03/2024 6:39 AM CDT [facility] Blood BLOOD SPECIMEN / Unknown Lab Venipuncture / Unknown 06/03/2024 5:56 AM CDT 06/03/2024 6:11 AM CDT Jason Coppola MD LAB - CHEMISTRY CHRISTIAN RAZO [address] [address], [place] [phone] * (ABNORMAL) CBC W/O DIFFERENTIAL (06/03/2024 5:56 AM CDT) Pathologist [facility] WBC 7.8 4.0 - 10.7 x10E9/L 06/03/2024 6:19 AM CDT [facility] RBC Count 4.17(L) 4.30 - 5.80 x10E12/L 06/03/2024 6:19 AM CDT [facility] Hemoglobin 10.9(L) 13.3 - 17.5 g/dL 06/03/2024 6:19 AM [facility] Hematocrit 34.2(L) 38.7 - 51.1 % 06/03/2024 6:19 AM [facility] MCV 82.0 80.0 - 98.0 fL 06/03/2024 6:19 AM [facility] MCH 26.1(L) 26.7 - 33.6 pg 06/03/2024 6:19 AM [facility] MCHC 31.9 31.7 - 36.3 g/dL 06/03/2024 6:19 AM [facility] RDW-CV 14.6 11.3 - 14.8 % 06/03/2024 6:19 AM [facility] Platelet Count 286 150 - 420 x10E9/L 06/03/2024 6:19 AM [facility] MPV 9.2 7.8 - 11.4 fL 06/03/2024 6:19 AM [facility] Blood BLOOD SPECIMEN / Unknown Lab Venipuncture / Unknown 06/03/2024 5:56 AM CDT 06/03/2024 6:11 AM CDT Jason Coppola MD LAB - HEMATOLOGY ORD ERABLES [facility] [address] [place] [phone], [facility] [phone] * (ABNORMAL) BASIC METABOLIC PANEL (CALCIUM TOTAL) (06/03/2024 5:56 AM CDT) BUN 16 7 - 26 mg/dL 06/03/2024 6:39 AM [facility] Creatinine 0.75 0.71 - 1.16 mg/dL 06/03/2024 6:39 AM [facility] Sodium 136 136 - 145 mmol/L 06/03/2024 6:39 AM [facility] Potassium 4.2 3.5 - 4.5 mmol/L 06/03/2024 6:39 AM [facility] Chloride 103 98 - 107 mmol/L 06/03/2024 6:39 AM [facility] CO2 26 22 - 29 mmol/L 06/03/2024 6:39 AM [facility] Glucose 132(H) 70 - 115 mg/dL 06/03/2024 6:39 AM [facility] Calcium 9.6 8.4 - 10.2 mg/dL 06/03/2024 6:39 AM [facility] Anion Gap 7 6 - 16 06/03/2024 6:39 AM [facility] BUN/Creatinine Ratio 21 7 - 23 06/03/2024 6:39 AM [facility] Osmolality Calculated 285 275 - 295 mOsm/kg 06/03/2024 6:39 AM [facility] eGFR by CKD-EPI >90 >=90 mL/min/1.7 3 m2 06/03/2024 6:39 AM [facility] Blood BLOOD SPECIMEN / Unknown Lab Venipuncture / Unknown 06/03/2024 5:56 AM CDT 06/03/2024 6:11 AM CDT Jason Coppola MD LAB - CHEMISTRY CHRISTIAN RAZO [address] [address], [place] [phone] * (ABNORMAL) GLUCOSE - POINT OF CARE (06/02/2024 7:51 PM CDT) Glucose WB/POC 210(H) 70 - 115 mg/dL 06/03/2024 7:29 AM T [facility] Specimen Type Cap Fingerstick 2023 7:29 AM T [facility] Blood BLOOD SPECIMEN / Unknown 06/02/2024 7:51 PM CDT 06/03/2024 7:29 AM CDT Farhat Enamorado MD LAB - POINT OF CARE ORDERABLES [address] [address], [place] [phone] * (ABNORMAL) GLUCOSE - POINT OF CARE (06/02/2024 6:06 PM CDT) Glucose WB/POC 150(H) 70 - 115 mg/dL 06/02/2024 6:24 PM CDT [facility] Specimen Type Cap Fingerstick 2023 6:24 PM CDT [facility] Blood BLOOD SPECIMEN / Unknown 06/02/2024 6:06 PM CDT 06/02/2024 6:24 PM CDT Farhat Enamorado MD LAB - POINT OF CARE ORDERABLES Performing Organization Address City/[facility]/ZIP Co de Phone Number [address] [address], [place] [phone] * (ABNORMAL) GLUCOSE - POINT OF CARE (06/02/2024 11:24 AM CDT) Glucose WB/POC 157(H) 70 - 115 mg/dL 06/02/2024 5:27 PM CDT [facility] Specimen Type Cap Fingerstick 2023 5:27 PM CDT [facility] Blood BLOOD SPECIMEN / Unknown 06/02/2024 11:24 AM CDT 06/02/2024 5:27 PM CDT Farhat Enamorado MD LAB - POINT OF CARE ORDERABLES Performing Organization Address [facility]/ZIP Co de Phone Number [address] [address], [place] [phone] * (ABNORMAL) GLUCOSE - POINT OF CARE (06/02/2024 8:14 AM CDT) Glucose WB/POC 135(H) 70 - 115 mg/dL 06/02/2024 8:19 AM CDT [facility] Specimen Type Cap Fingerstick 2023 8:19 AM CDT [facility] Blood BLOOD SPECIMEN / Unknown 06/02/2024 8:14 AM CDT 06/02/2024 8:19 AM CDT Farhat Enamorado MD LAB - POINT OF CARE ORDERABLES [facility] [address] [place] [address], [facility] [phone] * PHOSPHORUS BLOOD (06/02/2024 5:13 AM CDT) Pathologist [facility] Phosphorus 4.3 2.8 - 5.1 mg/dL 06/02/2024 6:03 AM CDT [facility] Blood BLOOD SPECIMEN / Unknown Lab Venipuncture / Unknown 06/02/2024 5:13 AM CDT 06/02/2024 5:35 AM CDT Jason Coppola MD LAB - CHEMISTRY ORDE DUNG Performing Organization Address City/[facility]/ZIP Co de Phone Number [address] [address], [facility] [phone] * MAGNESIUM BLOOD (06/02/2024 5:13 AM CDT) Pathologist [facility] Magnesium 1.9 1.6 - 2.6 mg/dL 06/02/2024 6:03 AM CDT [facility] Blood BLOOD SPECIMEN / Unknown Lab Venipuncture / Unknown 06/02/2024 5:13 AM CDT 06/02/2024 5:35 AM CDT Jason Coppola MD LAB - CHEMISTRY ORDAnirudh RAZO Performing Organization Address City/[facility]/ZIP Co de Phone Number [address] [address], [facility] [phone] * (ABNORMAL) CBC W/O DIFFERENTIAL (06/02/2024 5:13 AM CDT) Pathologist [facility] WBC 7.5 4.0 - 10.7 x10E9/L 06/02/2024 5:43 AM CDT [facility] RBC Count 4.33 4.30 - 5.80 x10E12/L 06/02/2024 5:43 AM CDT [facility] Hemoglobin 11.4(L) 13.3 - 17.5 g/dL 06/02/2024 5:43 AM CDT [facility] Hematocrit 36.4(L) 38.7 - 51.1 % 06/02/2024 5:43 AM [facility] MCV 84.1 80.0 - 98.0 fL 06/02/2024 5:43 AM [facility] MCH 26.3(L) 26.7 - 33.6 pg 06/02/2024 5:43 AM [facility] MCHC 31.3(L) 31.7 - 36.3 g/dL 06/02/2024 5:43 AM [facility] RDW-CV 14.7 11.3 - 14.8 % 06/02/2024 5:43 AM [facility] Platelet Count 286 150 - 420 x10E9/L 06/02/2024 5:43 AM [facility] MPV 9.1 7.8 - 11.4 fL 06/02/2024 5:43 AM [facility] Blood BLOOD SPECIMEN / Unknown Lab Venipuncture / Unknown 06/02/2024 5:13 AM CDT 06/02/2024 5:35 AM CDT Jason Coppola MD LAB - HEMATOLOGY ORD ERABLES [facility] [address] [place] [address], [facility] [phone] * (ABNORMAL) BASIC METABOLIC PANEL (CALCIUM TOTAL) (06/02/2024 5:13 AM CDT) BUN 19 7 - 26 mg/dL 06/02/2024 6:03 AM [facility] Creatinine 0.78 0.71 - 1.16 mg/dL 06/02/2024 6:03 AM [facility] Sodium 138 136 - 145 mmol/L 06/02/2024 6:03 AM [facility] Potassium 3.8 3.5 - 4.5 mmol/L 06/02/2024 6:03 AM [facility] Chloride 104 98 - 107 mmol/L 06/02/2024 6:03 AM [facility] CO2 27 22 - 29 mmol/L 06/02/2024 6:03 AM [facility] Glucose 141(H) 70 - 115 mg/dL 06/02/2024 6:03 AM [facility] Calcium 9.5 8.4 - 10.2 mg/dL 06/02/2024 6:03 AM [facility] Anion Gap 7 6 - 16 06/02/2024 6:03 AM [facility] BUN/Creatinine Ratio 24(H) 7 - 23 06/02/2024 6:03 AM [facility] Osmolality Calculated 291 275 - 295 mOsm/kg 06/02/2024 6:03 AM [facility] eGFR by CKD-EPI >90 >=90 mL/min/1.7 3 m2 06/02/2024 6:03 AM [facility] Blood BLOOD SPECIMEN / Unknown Lab Venipuncture / Unknown 06/02/2024 5:13 AM CDT 06/02/2024 5:35 AM CDT Jason Coppola MD LAB - CHEMISTRY CHRISTIAN RAZO [address] [address], [place] [phone] * (ABNORMAL) GLUCOSE - POINT OF CARE (06/01/2024 7:51 PM CDT) Glucose WB/POC 137(H) 70 - 115 mg/dL 06/01/2024 9:16 PM T [facility] Specimen Type Cap Fingerstick 2023 9:16 PM T [facility] Blood BLOOD SPECIMEN / Unknown 06/01/2024 7:51 PM CDT 06/01/2024 9:16 PM CDT Farhat Enamorado MD LAB - POINT OF CARE ORDERABLES [address] [address], [place] [phone] * PHOSPHORUS BLOOD (06/01/2024 5:28 AM CDT) Phosphorus 3.9 2.8 - 5.1 mg/dL 06/01/2024 7:27 AM CDT [facility] Blood BLOOD SPECIMEN / Unknown Lab Venipuncture / Unknown 06/01/2024 5:28 AM CDT 06/01/2024 6:57 AM CDT Jason Coppola MD LAB - CHEMISTRY CHRISTIAN RAZO Performing Organization Address City/[facility]/ZIP Co de Phone Number [address] [address], [facility] [phone] * (ABNORMAL) MAGNESIUM BLOOD (06/01/2024 5:28 AM CDT) Magnesium 1.5(L) 1.6 - 2.6 mg/dL 06/01/2024 7:27 AM T [facility] Blood BLOOD SPECIMEN / Unknown Lab Venipuncture / Unknown 06/01/2024 5:28 AM CDT 06/01/2024 6:57 AM CDT Jason Coppola MD LAB - CHEMISTRY CHRISTIAN RAZO Performing Organization Address [facility]/ZIP Co de Phone Number [address] [address], [facility] [phone] * (ABNORMAL) CBC W/O DIFFERENTIAL (06/01/2024 5:28 AM CDT) WBC 7.1 4.0 - 10.7 x10E9/L 06/01/2024 7:19 AM [facility] RBC Count 4.01(L) 4.30 - 5.80 x10E12/L 06/01/2024 7:19 AM [facility] Hemoglobin 10.4(L) 13.3 - 17.5 g/dL 06/01/2024 7:19 AM [facility] Hematocrit 33.2(L) 38.7 - 51.1 % 06/01/2024 7:19 AM [facility] MCV 82.8 80.0 - 98.0 fL 06/01/2024 7:19 AM [facility] MCH 25.9(L) 26.7 - 33.6 pg 06/01/2024 7:19 AM [facility] MCHC 31.3(L) 31.7 - 36.3 g/dL 06/01/2024 7:19 AM [facility] RDW-CV 14.5 11.3 - 14.8 % 06/01/2024 7:19 AM [facility] Platelet Count 285 150 - 420 x10E9/L 06/01/2024 7:19 AM [facility] MPV 9.7 7.8 - 11.4 fL 06/01/2024 7:19 AM [facility] Blood BLOOD SPECIMEN / Unknown Lab Venipuncture / Unknown 06/01/2024 5:28 AM CDT 06/01/2024 6:57 AM CDT Jason Coppola MD LAB - HEMATOLOGY ORD ERABLES Performing Organization Address City/State/[facility] Co de Phone Number [facility] [address] [place] [phone] [phone] * BASIC METABOLIC PANEL (CALCIUM TOTAL) (06/01/2024 5:28 AM CDT) BUN 18 7 - 26 mg/dL 06/01/2024 7:27 AM [facility] Creatinine 0.78 0.71 - 1.16 mg/dL 06/01/2024 7:27 AM [facility] Sodium 139 136 - 145 mmol/L 06/01/2024 7:27 AM [facility] Potassium 3.8 3.5 - 4.5 mmol/L 06/01/2024 7:27 AM [facility] Chloride 103 98 - 107 mmol/L 06/01/2024 7:27 AM [facility] CO2 26 22 - 29 mmol/L 06/01/2024 7:27 AM [facility] Glucose 108 70 - 115 mg/dL 06/01/2024 7:27 AM [facility] Calcium 9.7 8.4 - 10.2 mg/dL 06/01/2024 7:27 AM [facility] Anion Gap 10 6 - 16 06/01/2024 7:27 AM CDT [facility] BUN/Creatinine Ratio 23 7 - 23 06/01/2024 7:27 AM CDT [facility] Osmolality Calculated 290 275 - 295 mOsm/kg 06/01/2024 7:27 AM CDT [facility] eGFR by CKD-EPI >90 >=90 mL/min/1.7 3 m2 06/01/2024 7:27 AM CDT [facility] Blood BLOOD SPECIMEN / Unknown Lab Venipuncture / Unknown 06/01/2024 5:28 AM CDT 06/01/2024 6:57 AM CDT Jason Coppola MD LAB - CHEMISTRY ORDE RABLES [facility] [address] [place] [address], [place] [phone] * (ABNORMAL) GLUCOSE - POINT OF CARE (05/31/2024 8:24 PM CDT) Glucose WB/POC 165(H) 70 - 115 mg/dL 06/01/2024 7:18 AM CDT [facility] Specimen Type Cap Fingerstick 2023 7:18 AM CDT [facility] Blood BLOOD SPECIMEN / Unknown 05/31/2024 8:24 PM CDT 06/01/2024 7:18 AM CDT Jason Coppola MD LAB - POINT OF CARE ORDERABLES [facility] [address] [place] [address], [place] [phone] * (ABNORMAL) GLUCOSE - POINT OF CARE (05/31/2024 4:49 PM CDT) Glucose WB/POC 131(H) 70 - 115 mg/dL 05/31/2024 5:34 PM CDT [facility] Specimen Type Cap Fingerstick 2023 5:34 PM CDT [facility] Blood BLOOD SPECIMEN / Unknown 05/31/2024 4:49 PM CDT 05/31/2024 5:34 PM CDT Jason Coppola MD LAB - POINT OF CARE ORDERABLES [address] [address], [place] [phone] * (ABNORMAL) GLUCOSE - POINT OF CARE (05/31/2024 11:53 AM CDT) Glucose WB/POC 144(H) 70 - 115 mg/dL 05/31/2024 12:04 PM CDT [facility] Specimen Type Cap Fingerstick 2023 12:04 PM CDT [facility] Blood BLOOD SPECIMEN / Unknown 05/31/2024 11:53 AM CDT 05/31/2024 12:04 PM CDT Jason Coppola MD LAB - POINT OF CARE ORDERABLES Performing Organization Address City/[facility]/ZIP Co de Phone Number [address] [address], [place] [phone] * GLUCOSE - POINT OF CARE (05/31/2024 8:10 AM CDT) Glucose WB/POC 110 70 - 115 mg/dL 05/31/2024 8:30 AM CDT [facility] Specimen Type Cap Fingerstick 2023 8:30 AM CDT [facility] Blood BLOOD SPECIMEN / Unknown 05/31/2024 8:10 AM CDT 05/31/2024 8:30 AM CDT Jaosn Coppola MD LAB - POINT OF CARE ORDERABLES [address] [address], [place] [phone] * PHOSPHORUS BLOOD (05/31/2024 5:47 AM CDT) Phosphorus 3.7 2.8 - 5.1 mg/dL 05/31/2024 6:46 AM CDT [facility] Blood BLOOD SPECIMEN / Unknown Lab Venipuncture / Unknown 05/31/2024 5:47 AM CDT 05/31/2024 6:17 AM CDT Jason Coppola MD LAB - CHEMISTRY CHRISTIAN RAZO Performing Organization Address City/[facility]/ZIP Co de Phone Number [facility] [address] [place] [phone], [facility] [phone] * MAGNESIUM BLOOD (05/31/2024 5:47 AM CDT) Magnesium 1.6 1.6 - 2.6 mg/dL 05/31/2024 6:46 AM T [facility] Blood BLOOD SPECIMEN / Unknown Lab Venipuncture / Unknown 05/31/2024 5:47 AM CDT 05/31/2024 6:17 AM CDT Jason Coppola MD LAB - CHEMISTRY CHRISTIAN RAZO Performing Organization Address City/[facility]/ZIP Co de Phone Number [address] [address], [facility] [phone] * (ABNORMAL) CBC W/O DIFFERENTIAL (05/31/2024 5:47 AM CDT) WBC 6.5 4.0 - 10.7 x10E9/L 05/31/2024 6:36 AM [facility] RBC Count 3.96(L) 4.30 - 5.80 x10E12/L 05/31/2024 6:36 AM [facility] Hemoglobin 10.4(L) 13.3 - 17.5 g/dL 05/31/2024 6:36 AM [facility] Hematocrit 32.6(L) 38.7 - 51.1 % 05/31/2024 6:36 AM [facility] MCV 82.3 80.0 - 98.0 fL 05/31/2024 6:36 AM [facility] MCH 26.3(L) 26.7 - 33.6 pg 05/31/2024 6:36 AM [facility] MCHC 31.9 31.7 - 36.3 g/dL 05/31/2024 6:36 AM [facility] RDW-CV 14.5 11.3 - 14.8 % 05/31/2024 6:36 AM [facility] Platelet Count 307 150 - 420 x10E9/L 05/31/2024 6:36 AM [facility] MPV 9.4 7.8 - 11.4 fL 05/31/2024 6:36 AM [facility] Blood BLOOD SPECIMEN / Unknown Lab Venipuncture / Unknown 05/31/2024 5:47 AM CDT 05/31/2024 6:17 AM T Jason Coppola MD LAB - HEMATOLOGY ORD ERABLES [facility] [address] [place] [address], [facility] [phone] * (ABNORMAL) BASIC METABOLIC PANEL (CALCIUM TOTAL) (05/31/2024 5:47 AM CDT) BUN 21 7 - 26 mg/dL 05/31/2024 6:46 AM [facility] Creatinine 0.75 0.71 - 1.16 mg/dL 05/31/2024 6:46 AM [facility] Sodium 135(L) 136 - 145 mmol/L 05/31/2024 6:46 AM [facility] Potassium 3.8 3.5 - 4.5 mmol/L 05/31/2024 6:46 AM [facility] Chloride 102 98 - 107 mmol/L 05/31/2024 6:46 AM [facility] CO2 25 22 - 29 mmol/L 05/31/2024 6:46 AM [facility] Glucose 114 70 - 115 mg/dL 05/31/2024 6:46 AM [facility] Calcium 9.8 8.4 - 10.2 mg/dL 05/31/2024 6:46 AM [facility] Anion Gap 8 6 - 16 05/31/2024 6:46 AM [facility] BUN/Creatinine Ratio 28(H) 7 - 23 05/31/2024 6:46 AM CDT [facility] Osmolality Calculated 284 275 - 295 mOsm/kg 05/31/2024 6:46 AM CDT [facility] eGFR by CKD-EPI >90 >=90 mL/min/1.7 3 m2 05/31/2024 6:46 AM CDT [facility] Blood BLOOD SPECIMEN / Unknown Lab Venipuncture / Unknown 05/31/2024 5:47 AM CDT 05/31/2024 6:17 AM CDT Jason Coppola MD LAB - CHEMISTRY ORDE RABMILADY [facility] [address] [place] [address], [place] [phone] * (ABNORMAL) GLUCOSE - POINT OF CARE (05/30/2024 9:33 PM CDT) Glucose WB/POC 121(H) 70 - 115 mg/dL 05/31/2024 6:27 AM CDT [facility] Specimen Type Cap Fingerstick 2023 6:27 AM CDT [facility] Blood BLOOD SPECIMEN / Unknown 05/30/2024 9:33 PM CDT 05/31/2024 6:27 AM CDT Jason Coppola MD LAB - POINT OF CARE ORDERABLES [facility] [address] [place] [address], [place] [phone] * (ABNORMAL) GLUCOSE - POINT OF CARE (05/30/2024 5:33 PM CDT) Glucose WB/POC 127(H) 70 - 115 mg/dL 05/31/2024 6:27 AM CDT [facility] Specimen Type Cap Fingerstick 2023 6:27 AM CDT [facility] Blood BLOOD SPECIMEN / Unknown 05/30/2024 5:33 PM CDT 05/31/2024 6:27 AM CDT Jason Coppola MD LAB - POINT OF CARE ORDERABLES [facility] [address] [place] [address], [place] [phone] * (ABNORMAL) GLUCOSE - POINT OF CARE (05/30/2024 11:56 AM CDT) Glucose WB/POC 163(H) 70 - 115 mg/dL 05/30/2024 12:49 PM CDT [facility] Specimen Type Cap Fingerstick 2023 12:49 PM CDT [facility] Blood BLOOD SPECIMEN / Unknown 05/30/2024 11:56 AM CDT 05/30/2024 12:49 PM CDT Jason Coppola MD LAB - POINT OF CARE ORDERABLES [facility] [address] [place] [address], [place] [phone] * (ABNORMAL) GLUCOSE - POINT OF CARE (05/30/2024 8:10 AM CDT) Glucose WB/POC 123(H) 70 - 115 mg/dL 05/30/2024 8:26 AM CDT [facility] Specimen Type Cap Fingerstick 2023 8:26 AM CDT [facility] Blood BLOOD SPECIMEN / Unknown 05/30/2024 8:10 AM CDT 05/30/2024 8:26 AM CDT Jason Coppola MD LAB - POINT OF CARE ORDERABLES [facility] [address] [place] [address], [place] [phone] * TSH REFLEX FREE T4 (05/30/2024 4:32 AM CDT) TSH 2.381 0.350 - 4.940 uIU/mL 05/30/2024 11:01 AM CDT [facility] Blood BLOOD SPECIMEN / Unknown Lab Venipuncture / Unknown 05/30/2024 4:32 AM CDT 05/30/2024 5:01 AM CDT Jason Coppola MD LAB - CHEMISTRY CHRISTIAN RAZO [address] [address], [place] [phone] * PHOSPHORUS BLOOD (05/30/2024 4:32 AM CDT) Phosphorus 3.6 2.8 - 5.1 mg/dL 05/30/2024 5:32 AM CDT [facility] Blood BLOOD SPECIMEN / Unknown Lab Venipuncture / Unknown 05/30/2024 4:32 AM CDT 05/30/2024 5:01 AM CDT Jason Coppola MD LAB - CHEMISTRY CHRISTIAN RAZO Performing Organization Address City/[facility]/ZIP Co de Phone Number [address] [address], [place] [phone] * MAGNESIUM BLOOD (05/30/2024 4:32 AM CDT) Magnesium 1.8 1.6 - 2.6 mg/dL 05/30/2024 5:32 AM CDT [facility] Blood BLOOD SPECIMEN / Unknown Lab Venipuncture / Unknown 05/30/2024 4:32 AM CDT 05/30/2024 5:01 AM CDT Jason Coppola MD LAB - CHEMISTRY CHRISTIAN RAOZ Performing Organization Address City/[facility]/ZIP Co de Phone Number [address] [address], [facility] [phone] * (ABNORMAL) CBC W/O DIFFERENTIAL (05/30/2024 4:32 AM CDT) WBC 6.4 4.0 - 10.7 x10E9/L 05/30/2024 5:08 AM CDT [facility] RBC Count 3.91(L) 4.30 - 5.80 x10E12/L 05/30/2024 5:08 AM [facility] Hemoglobin 10.3(L) 13.3 - 17.5 g/dL 05/30/2024 5:08 AM [facility] Hematocrit 33.0(L) 38.7 - 51.1 % 05/30/2024 5:08 AM [facility] MCV 84.4 80.0 - 98.0 fL 05/30/2024 5:08 AM [facility] MCH 26.3(L) 26.7 - 33.6 pg 05/30/2024 5:08 AM [facility] MCHC 31.2(L) 31.7 - 36.3 g/dL 05/30/2024 5:08 AM [facility] RDW-CV 14.6 11.3 - 14.8 % 05/30/2024 5:08 AM [facility] Platelet Count 271 150 - 420 x10E9/L 05/30/2024 5:08 AM [facility] MPV 9.6 7.8 - 11.4 fL 05/30/2024 5:08 AM [facility] Blood BLOOD SPECIMEN / Unknown Lab Venipuncture / Unknown 05/30/2024 4:32 AM CDT 05/30/2024 5:01 AM CDT Jason Coppola MD LAB - HEMATOLOGY ORD ERABLES Performing Organization Address [facility]/State/[facility] Co de Phone Number [facility] [address] [place] [phone] [phone] * (ABNORMAL) BASIC METABOLIC PANEL (CALCIUM TOTAL) (05/30/2024 4:32 AM CDT) BUN 21 7 - 26 mg/dL 05/30/2024 5:32 AM [facility] Creatinine 0.75 0.71 - 1.16 mg/dL 05/30/2024 5:32 AM [facility] Sodium 137 136 - 145 mmol/L 05/30/2024 5:32 AM [facility] Potassium 3.9 3.5 - 4.5 mmol/L 05/30/2024 5:32 AM [facility] Chloride 104 98 - 107 mmol/L 05/30/2024 5:32 AM [facility] CO2 26 22 - 29 mmol/L 05/30/2024 5:32 AM [facility] Glucose 127(H) 70 - 115 mg/dL 05/30/2024 5:32 AM [facility] Calcium 9.6 8.4 - 10.2 mg/dL 05/30/2024 5:32 AM [facility] Anion Gap 7 6 - 16 05/30/2024 5:32 AM [facility] BUN/Creatinine Ratio 28(H) 7 - 23 05/30/2024 5:32 AM [facility] Osmolality Calculated 289 275 - 295 mOsm/kg 05/30/2024 5:32 AM [facility] eGFR by CKD-EPI >90 >=90 mL/min/1.7 3 m2 05/30/2024 5:32 AM [facility] Blood BLOOD SPECIMEN / Unknown Lab Venipuncture / Unknown 05/30/2024 4:32 AM CDT 05/30/2024 5:01 AM CDT Jason Coppola MD LAB - CHEMISTRY ORDE DUNG [facility] [address] [place] [address], [facility] [phone] * (ABNORMAL) GLUCOSE - POINT OF CARE (05/30/2024 4:24 AM CDT) Glucose WB/POC 144(H) 70 - 115 mg/dL 05/30/2024 8:17 AM T [facility] Specimen Type Cap Fingerstick 2023 8:17 AM [facility] Blood BLOOD SPECIMEN / Unknown 05/30/2024 4:24 AM CDT 05/30/2024 8:17 AM CDT Jason Coppola MD LAB - POINT OF CARE ORDERABLES [facility] [address] [place] [address], [place] [phone] * (ABNORMAL) GLUCOSE - POINT OF CARE (05/29/2024 10:57 PM CDT) Glucose WB/POC 135(H) 70 - 115 mg/dL 05/30/2024 4:07 AM CDT [facility] Specimen Type Cap Fingerstick 2023 4:07 AM CDT [facility] Blood BLOOD SPECIMEN / Unknown 05/29/2024 10:57 PM CDT 05/30/2024 4:07 AM CDT Jason Coppola MD LAB - POINT OF CARE ORDERABLES [facility] [address] [place] [address], [place] [phone] * (ABNORMAL) GLUCOSE - POINT OF CARE (05/29/2024 3:05 PM CDT) Glucose WB/POC 141(H) 70 - 115 mg/dL 05/29/2024 4:12 PM CDT [facility] Specimen Type Cap Fingerstick 2023 4:12 PM CDT [facility] Blood BLOOD SPECIMEN / Unknown 05/29/2024 3:05 PM CDT 05/29/2024 4:11 PM CDT Ruslan Garza MD LAB - POINT OF CARE ORDERABLES [facility] [address] [place] [address], [place] [phone] * (ABNORMAL) GLUCOSE - POINT OF CARE (05/29/2024 11:19 AM CDT) Glucose WB/POC 178(H) 70 - 115 mg/dL 05/29/2024 11:20 AM CDT [facility] Specimen Type Cap Fingerstick 2023 11:20 AM CDT [facility] Blood BLOOD SPECIMEN / Unknown 05/29/2024 11:19 AM CDT 05/29/2024 11:20 AM CDT Ruslan Garza MD LAB - POINT OF CARE ORDERABLES Performing Organization Address City/[facility]/ZIP Co de Phone Number [facility] [address] [place] [phone], [facility] [phone] * EKG 12-LEAD (05/29/2024 8:41 AM CDT) Ventricular Rate 75 BPM SL MUSE Atrial Rate 75 BPM [facility] MUSE P-R Interval 132 ms [facility] MUSE QRS Duration ms 92 ms [facility] MUSE Q-T Interval ms 416 ms [facility] MUSE QTC Calculation (Bezet) 464 ms [facility] MUSE Calculated P [place] 45 degrees SL MUSE Calculated R [place] 37 degrees SL MUSE Calculated T [place] -90 degrees [facility] MUSE Interpretation EKG SINUS RHYTHM WITH PREMATURE VENTRICULAR COMPLEXES ST & T WAVE ABNORMALITY, CONSIDER INFERIOR ISCHEMIA ABNORMAL ECG NO PREVIOUS ECGS AVAILABLE Confirmed by CURLY KRUEGER MD ([id number]) on 06/18/2024 10:09:45 PM [facility] MUSE 05/29/2024 8:41 AM CDT 06/18/2024 10:09 PM CDT Ruslan Garza MD ECG ORDERABLES Performing Organization Address [facility] de Phone Number [facility] MUSE * GLUCOSE - POINT OF CARE (05/29/2024 8:25 AM CDT) [facility] Glucose WB/POC 111 70 - 115 mg/dL 05/29/2024 8:29 AM CDT [facility] Specimen Type Cap Fingerstick 2023 8:29 AM CDT [facility] Blood BLOOD SPECIMEN / Unknown 05/29/2024 8:25 AM CDT 05/29/2024 8:29 AM CDT Ruslan Garza MD LAB - POINT OF CARE ORDERABLES Performing Organization Address City/[facility]/ZIP Co de Phone Number [address] [address], [facility] [phone] * CT Angio Brain Neck Stroke (05/29/2024 1:28 AM CDT) Anatomical Region Laterality Modality Head Computed [...] report is dictated by Nasreen Gomez MD (resident care aide) I, Christy Iverson MD have personally reviewed and interpreted this examination/study. > Interpreting Provider: Christy Iverson MD on 05/29/2024 10:01 AM Narrative 05/29/2024 10:01 AM CDT PROCEDURE: ??CT ANGIO BRAIN NECK STROKE, DATE/TIME OF EXAM: ??05/29/2024 1:30 AM, LOCATION ??[facility] INDICATION: I63.9: Cerebrovascular accident (CVA), unspecified mechanism [...] DATE/TIME OF EXAM: :30 AM, LOCATION [facility] INDICATION: I63.9: Cerebrovascular accident (CVA), unspecified mechanism [...] report is dictated by Nasreen Gomez MD (resident care aide) I, Christy Iverson MD have personally reviewed and interpreted this examination/study. > Interpreting Provider: Christy Iverson MD on 05/29/2024 10:01 AM Madhu Rose MD CT ORDERABLES * CREATININE - POCT INTERFACED (05/29/2024 12:42 AM CDT) Creatinine POCT 0.76 0.30 - 1.30 mg/dL 05/29/2024 12:43 AM CDT [facility] Comment:CT range acceptable eGFR >90 >=90 mL/min/1.7 3 m2 05/29/2024 12:43 AM CDT [facility] Blood BLOOD SPECIMEN / Unknown 05/29/2024 12:42 AM CDT 05/29/2024 12:43 AM CDT Jason Coppola MD LAB - POINT OF CARE ORDERABLES [facility] [address] [place] [address], [facility] [phone] * INR WHOLE BLOOD - POINT OF CARE (IP) STROKE (05/29/2024 12:41 AM CDT) INR 1.1 0.9 - 1.2 05/29/2024 12:43 AM CDT [facility] Device [id number] 05/29/2024 12:43 AM CDT [facility] [employer] [place] [id number] 05/29/2024 12:43 AM CDT [facility] Blood BLOOD SPECIMEN / Unknown 05/29/2024 12:41 AM CDT 05/29/2024 12:43 AM CDT Jason Coppola MD LAB - POINT OF CARE ORDERABLES [facility] [address] [place] [address], [facility] [phone] * CT Brain Stroke (05/29/2024 12:34 AM CDT) Anatomical Region Laterality Modality Head Computed Tomogra phy 05/29/2024 9:39 AM CDT Impressions 05/29/2024 9:43 AM CDT IMPRESSION: 1. No acute intracranial process. A preliminary report was provided to the clinical team by Nehemias Lino M.D of [facility] at 12:36 AM on 05/29/2024. > Interpreting Provider: Christy Iverson MD on 05/29/2024 9:43 AM Narrative 05/29/2024 9:43 AM CDT PROCEDURE: ??CT BRAIN STROKE, DATE/TIME OF EXAM: ??05/29/2024 12:40 AM, LOCATION ??[facility] INDICATION: I63.9: Cerebrovascular accident (CVA), unspecified mechanism [...] OF EXAM: 05/29/2024 12:40 AM, LOCATION [facility] INDICATION: I63.9: Cerebrovascular accident (CVA), unspecified mechanism [...] the clinical team by Nehemias Doll of [facility] at 12:36 AM on 05/29/2024. > Interpreting Provider: Christy Iverson MD on 05/29/2024 9:43 AM Madhu Rose MD CT ORDERABLES * (ABNORMAL) GLUCOSE - POINT OF CARE (05/29/2024 12:22 AM CDT) Glucose WB/POC 121(H) 70 - 115 mg/dL 05/29/2024 12:24 AM CDT [facility] Specimen Type Cap Fingerstick 2023 12:24 AM CDT [facility] Blood BLOOD SPECIMEN / Unknown 05/29/2024 12:22 AM CDT 05/29/2024 12:23 AM CDT Jason Coppola MD LAB - POINT OF CARE ORDERABLES [address] [address], [facility] [phone] * PHOSPHORUS BLOOD (05/29/2024 12:04 AM CDT) Pathologist [facility] Phosphorus 3.4 2.8 - 5.1 mg/dL 05/29/2024 3:16 AM CDT [facility] Blood BLOOD SPECIMEN / Unknown Lab Venipuncture / Unknown 05/29/2024 12:04 AM CDT 05/29/2024 2:42 AM CDT Jason Coppola MD LAB - CHEMISTRY CHRISTIAN RAZO [address] [address], [facility] [phone] * (ABNORMAL) MAGNESIUM BLOOD (05/29/2024 12:04 AM CDT) Magnesium 1.5(L) 1.6 - 2.6 mg/dL 05/29/2024 3:16 AM [facility] Blood BLOOD SPECIMEN / Unknown Lab Venipuncture / Unknown 05/29/2024 12:04 AM CDT 05/29/2024 2:42 AM CDT Jason Coppola MD LAB - CHEMISTRY CHRISTIAN RAZO [facility] Organization Address City/State/ZIP Co de Phone Number [facility] [address] [place] [address] [phone] * (ABNORMAL) CBC W/O DIFFERENTIAL (05/29/2024 12:04 AM CDT) WBC 6.3 4.0 - 10.7 x10E9/L 05/29/2024 2:47 AM [facility] RBC Count 4.00(L) 4.30 - 5.80 x10E12/L 05/29/2024 2:47 AM [facility] Hemoglobin 10.6(L) 13.3 - 17.5 g/dL 05/29/2024 2:47 AM [facility] Hematocrit 34.0(L) 38.7 - 51.1 % 05/29/2024 2:47 AM [facility] MCV 85.0 80.0 - 98.0 fL 05/29/2024 2:47 AM [facility] MCH 26.5(L) 26.7 - 33.6 pg 05/29/2024 2:47 AM [facility] MCHC 31.2(L) 31.7 - 36.3 g/dL 05/29/2024 2:47 AM [facility] RDW-CV 14.6 11.3 - 14.8 % 05/29/2024 2:47 AM [facility] Platelet Count 264 150 - 420 x10E9/L 05/29/2024 2:47 AM [facility] MPV 10.1 7.8 - 11.4 fL 05/29/2024 2:47 AM [facility] Blood BLOOD SPECIMEN / Unknown Lab Venipuncture / Unknown 05/29/2024 12:04 AM CDT 05/29/2024 2:38 AM CDT Jason Coppola MD LAB - HEMATOLOGY ORD ERABLES [facility] [address] [place] [address], [facility] [phone] * (ABNORMAL) BASIC METABOLIC PANEL (CALCIUM TOTAL) (05/29/2024 12:04 AM CDT) BUN 22 7 - 26 mg/dL 05/29/2024 3:16 AM [facility] Creatinine 0.80 0.71 - 1.16 mg/dL 05/29/2024 3:16 AM [facility] Sodium 137 136 - 145 mmol/L 05/29/2024 3:16 AM [facility] Potassium 3.7 3.5 - 4.5 mmol/L 05/29/2024 3:16 AM [facility] Chloride 102 98 - 107 mmol/L 05/29/2024 3:16 AM [facility] CO2 23 22 - 29 mmol/L 05/29/2024 3:16 AM [facility] Glucose 107 70 - 115 mg/dL 05/29/2024 3:16 AM [facility] Calcium 9.3 8.4 - 10.2 mg/dL 05/29/2024 3:16 AM [facility] Anion Gap 12 6 - 16 05/29/2024 3:16 AM [facility] BUN/Creatinine Ratio 28(H) 7 - 23 05/29/2024 3:16 AM [facility] Osmolality Calculated 288 275 - 295 mOsm/kg 05/29/2024 3:16 AM [facility] eGFR by CKD-EPI >90 >=90 mL/min/1.7 3 m2 05/29/2024 3:16 AM [facility] Blood BLOOD SPECIMEN / Unknown Lab Venipuncture / Unknown 05/29/2024 12:04 AM CDT 05/29/2024 2:42 AM CDT Jason Coppola MD LAB - CHEMISTRY ORDE DUNG [facility] [address] [place] [address], [place] [phone] * (ABNORMAL) GLUCOSE - POINT OF CARE (05/28/2024 10:09 PM CDT) Glucose WB/POC 120(H) 70 - 115 mg/dL 05/28/2024 10:12 PM CDT [facility] Specimen Type Cap Fingerstick 2023 10:12 PM CDT [facility] Blood BLOOD SPECIMEN / Unknown 05/28/2024 10:09 PM CDT 05/28/2024 10:12 PM CDT Jason Coppola MD LAB - POINT OF CARE ORDERABLES [facility] [address] [place] [address], [place] [phone] * (ABNORMAL) GLUCOSE - POINT OF CARE (05/28/2024 4:42 PM CDT) Glucose WB/POC 125(H) 70 - 115 mg/dL 05/28/2024 10:12 PM CDT [facility] Specimen Type Arterial 05/28/2024 10:12 PM CDT [facility] Blood BLOOD SPECIMEN / Unknown 05/28/2024 4:42 PM CDT 05/28/2024 10:12 PM CDT Jason Coppola MD LAB - POINT OF CARE ORDERABLES [facility] [address] [place] [address], [place] [phone] * (ABNORMAL) GLUCOSE - POINT OF CARE (05/28/2024 12:02 PM CDT) Glucose WB/POC 145(H) 70 - 115 mg/dL 05/28/2024 4:35 PM CDT [facility] Specimen Type Arterial 05/28/2024 4:35 PM CDT [facility] Blood BLOOD SPECIMEN / Unknown 05/28/2024 12:02 PM CDT 05/28/2024 4:35 PM CDT Jason Coppola MD LAB - POINT OF CARE ORDERABLES [address] [address], [place] [phone] * GLUCOSE - POINT OF CARE (05/28/2024 8:05 AM CDT) Glucose WB/POC 103 70 - 115 mg/dL 05/28/2024 4:35 PM CDT [facility] Specimen Type Arterial 05/28/2024 4:35 PM CDT [facility] Blood BLOOD SPECIMEN / Unknown 05/28/2024 8:05 AM CDT 05/28/2024 4:35 PM CDT Jason Coppola MD LAB - POINT OF CARE ORDERABLES Performing Organization Address City/[facility]/ZIP Co de Phone Number [address] [address], [place] [phone] * PHOSPHORUS BLOOD (05/28/2024 4:46 AM CDT) Phosphorus 3.6 2.8 - 5.1 mg/dL 05/28/2024 5:34 AM CDT [facility] Blood BLOOD SPECIMEN / Unknown Lab Venipuncture / Unknown 05/28/2024 4:46 AM CDT 05/28/2024 5:07 AM CDT Jason Coppola MD LAB - CHEMISTRY CHRISTIAN RAZO Performing Organization Address City/[facility]/ZIP Co de Phone Number [address] [address], [place] [phone] * (ABNORMAL) MAGNESIUM BLOOD (05/28/2024 4:46 AM CDT) Magnesium 1.5(L) 1.6 - 2.6 mg/dL 05/28/2024 5:34 AM [facility] Blood BLOOD SPECIMEN / Unknown Lab Venipuncture / Unknown 05/28/2024 4:46 AM CDT 05/28/2024 5:07 AM CDT Jason Coppola MD LAB - CHEMISTRY CHRISTIAN RAZO [facility] Organization Address City/State/ZIP Co de Phone Number [facility] [address] [place] [address], [facility] [phone] * (ABNORMAL) CBC W/O DIFFERENTIAL (05/28/2024 4:46 AM CDT) WBC 9.5 4.0 - 10.7 x10E9/L 05/28/2024 5:22 AM [facility] RBC Count 3.88(L) 4.30 - 5.80 x10E12/L 05/28/2024 5:22 AM [facility] Hemoglobin 10.3(L) 13.3 - 17.5 g/dL 05/28/2024 5:22 AM [facility] Hematocrit 32.3(L) 38.7 - 51.1 % 05/28/2024 5:22 AM [facility] MCV 83.2 80.0 - 98.0 fL 05/28/2024 5:22 AM [facility] MCH 26.5(L) 26.7 - 33.6 pg 05/28/2024 5:22 AM [facility] MCHC 31.9 31.7 - 36.3 g/dL 05/28/2024 5:22 AM [facility] RDW-CV 14.7 11.3 - 14.8 % 05/28/2024 5:22 AM [facility] Platelet Count 254 150 - 420 x10E9/L 05/28/2024 5:22 AM [facility] MPV 9.9 7.8 - 11.4 fL 05/28/2024 5:22 AM [facility] Blood BLOOD SPECIMEN / Unknown Lab Venipuncture / Unknown 05/28/2024 4:46 AM CDT 05/28/2024 5:07 AM CDT Jason Coppola MD LAB - HEMATOLOGY ORD ERABLES Performing Organization Address City/[facility]/ZIP Co de Phone Number [address] [address], [facility] [phone] * BASIC METABOLIC PANEL (CALCIUM TOTAL) (05/28/2024 4:46 AM CDT) BUN 19 7 - 26 mg/dL 05/28/2024 5:34 AM [facility] Creatinine 0.88 0.71 - 1.16 mg/dL 05/28/2024 5:34 AM [facility] Sodium 136 136 - 145 mmol/L 05/28/2024 5:34 AM [facility] Potassium 3.8 3.5 - 4.5 mmol/L 05/28/2024 5:34 AM [facility] Chloride 103 98 - 107 mmol/L 05/28/2024 5:34 AM [facility] CO2 23 22 - 29 mmol/L 05/28/2024 5:34 AM [facility] Glucose 112 70 - 115 mg/dL 05/28/2024 5:34 AM [facility] Calcium 9.5 8.4 - 10.2 mg/dL 05/28/2024 5:34 AM [facility] Anion Gap 10 6 - 16 05/28/2024 5:34 AM [facility] BUN/Creatinine Ratio 22 7 - 23 05/28/2024 5:34 AM [facility] Osmolality Calculated 285 275 - 295 mOsm/kg 05/28/2024 5:34 AM [facility] eGFR by CKD-EPI >90 >=90 mL/min/1.7 3 m2 05/28/2024 5:34 AM [facility] Blood BLOOD SPECIMEN / Unknown Lab Venipuncture / Unknown 05/28/2024 4:46 AM CDT 05/28/2024 5:07 AM CDT Jason Coppola MD LAB - CHEMISTRY ORDAnirudh RAZO [facility] [address] [place] [address], [place] [phone] * GLUCOSE - POINT OF CARE (05/27/2024 10:41 PM CDT) Glucose WB/POC 113 70 - 115 mg/dL 05/28/2024 6:17 AM CDT [facility] Specimen Type Cap Fingerstick 2023 6:17 AM CDT [facility] Blood BLOOD SPECIMEN / Unknown 05/27/2024 10:41 PM CDT 05/28/2024 6:17 AM CDT Jason Coppola MD LAB - POINT OF CARE ORDERABLES [address] [address], [place] [phone] * GLUCOSE - POINT OF CARE (05/27/2024 5:18 PM CDT) Glucose WB/POC 92 70 - 115 mg/dL 05/27/2024 9:49 PM CDT [facility] Specimen Type Cap Fingerstick 2023 9:49 PM CDT [facility] Blood BLOOD SPECIMEN / Unknown 05/27/2024 5:18 PM CDT 05/27/2024 9:49 PM CDT Jason Coppola MD LAB - POINT OF CARE ORDERABLES [address] [address], [place] [phone] * (ABNORMAL) GLUCOSE - POINT OF CARE (05/27/2024 12:21 PM CDT) Glucose WB/POC 144(H) 70 - 115 mg/dL 05/27/2024 12:26 PM CDT [facility] Specimen Type Cap Fingerstick 2023 12:26 PM CDT [facility] Blood BLOOD SPECIMEN / Unknown 05/27/2024 12:21 PM CDT 05/27/2024 12:26 PM CDT Jason Coppola MD LAB - POINT OF CARE ORDERABLES [address] [address], [place] [phone] * GLUCOSE - POINT OF CARE (05/27/2024 8:31 AM CDT) Glucose WB/POC 104 70 - 115 mg/dL 05/27/2024 11:26 AM CDT [facility] Specimen Type Cap Fingerstick 2023 11:26 AM CDT [facility] Blood BLOOD SPECIMEN / Unknown 05/27/2024 8:31 AM CDT 05/27/2024 11:26 AM CDT Jason Coppola MD LAB - POINT OF CARE ORDERABLES Performing Organization Address City/[facility]/ZIP Co de Phone Number [address] [address], [place] [phone] * PHOSPHORUS BLOOD (05/27/2024 3:23 AM CDT) Phosphorus 4.2 2.8 - 5.1 mg/dL 05/27/2024 5:14 AM CDT [facility] Blood BLOOD SPECIMEN / Unknown Lab Venipuncture / Unknown 05/27/2024 3:23 AM CDT 05/27/2024 4:21 AM CDT Jason Coppola MD LAB - CHEMISTRY CHRISTIAN RAZO [address] [address], [place] [phone] * MAGNESIUM BLOOD (05/27/2024 3:23 AM CDT) Magnesium 1.7 1.6 - 2.6 mg/dL 05/27/2024 5:14 AM CDT [facility] Blood BLOOD SPECIMEN / Unknown Lab Venipuncture / Unknown 05/27/2024 3:23 AM CDT 05/27/2024 4:21 AM CDT Jason Coppola MD LAB - CHEMISTRY ORDE DUNG [facility] [address] [id number] [phone] * (ABNORMAL) CBC W/O DIFFERENTIAL (05/27/2024 3:23 AM CDT) WBC 13.8(H) 4.0 - 10.7 x10E9/L 05/27/2024 4:29 AM [facility] RBC Count 3.88(L) 4.30 - 5.80 x10E12/L 05/27/2024 4:29 AM [facility] Hemoglobin 10.3(L) 13.3 - 17.5 g/dL 05/27/2024 4:29 AM [facility] Hematocrit 32.3(L) 38.7 - 51.1 % 05/27/2024 4:29 AM [facility] MCV 83.2 80.0 - 98.0 fL 05/27/2024 4:29 AM [facility] MCH 26.5(L) 26.7 - 33.6 pg 05/27/2024 4:29 AM [facility] MCHC 31.9 31.7 - 36.3 g/dL 05/27/2024 4:29 AM [facility] RDW-CV 14.6 11.3 - 14.8 % 05/27/2024 4:29 AM [facility] Platelet Count 251 150 - 420 x10E9/L 05/27/2024 4:29 AM [facility] MPV 9.9 7.8 - 11.4 fL 05/27/2024 4:29 AM [facility] Blood BLOOD SPECIMEN / Unknown Lab Venipuncture / Unknown 05/27/2024 3:23 AM CDT 05/27/2024 4:21 AM CDT Jason Coppola MD LAB - HEMATOLOGY ORD CELIA [facility] [address] [place] [address], [facility] [phone] * (ABNORMAL) BASIC METABOLIC PANEL (CALCIUM TOTAL) (05/27/2024 3:23 AM CDT) BUN 18 7 - 26 mg/dL 05/27/2024 5:15 AM [facility] Creatinine 0.89 0.71 - 1.16 mg/dL 05/27/2024 5:15 AM [facility] Sodium 137 136 - 145 mmol/L 05/27/2024 5:15 AM [facility] Potassium 3.8 3.5 - 4.5 mmol/L 05/27/2024 5:15 AM [facility] Chloride 104 98 - 107 mmol/L 05/27/2024 5:15 AM [facility] CO2 21(L) 22 - 29 mmol/L 05/27/2024 5:15 AM [facility] Glucose 92 70 - 115 mg/dL 05/27/2024 5:15 AM [facility] Calcium 9.8 8.4 - 10.2 mg/dL 05/27/2024 5:15 AM [facility] Anion Gap 12 6 - 16 05/27/2024 5:15 AM [facility] BUN/Creatinine Ratio 20 7 - 23 05/27/2024 5:15 AM [facility] Osmolality Calculated 286 275 - 295 mOsm/kg 05/27/2024 5:15 AM [facility] eGFR by CKD-EPI >90 >=90 mL/min/1.7 3 m2 05/27/2024 5:15 AM [facility] Blood BLOOD SPECIMEN / Unknown Lab Venipuncture / Unknown 05/27/2024 3:23 AM CDT 05/27/2024 4:21 AM T Jason Coppola MD LAB - CHEMISTRY ORDE DUNG [facility] Organization Address City/State/ZIP Co de Phone Number [facility] [address] [place] [address], [facility] [phone] * GLUCOSE - POINT OF CARE (05/26/2024 9:12 PM CDT) Glucose WB/POC 115 70 - 115 mg/dL 05/26/2024 9:52 PM CDT [facility] Specimen Type Cap Fingerstick 2023 9:52 PM CDT [facility] Blood BLOOD SPECIMEN / Unknown 05/26/2024 9:12 PM CDT 05/26/2024 9:52 PM CDT Jason Coppola MD LAB - POINT OF CARE ORDERABLES [facility] [address] [place] [address], [facility] [phone] * CT Angio Brain And Neck (05/26/2024 [...] OF EXAM: ??05/26/2024 5:27 PM, LOCATION ??[facility] INDICATION: I63.9: Cerebrovascular accident (CVA), unspecified mechanism [...] DATE/TIME OF EXAM: 05/26/2024 5:27PM, LOCATION [facility] INDICATION: I63.9: Cerebrovascular accident (CVA), unspecified mechanism [...] Brain Wo Contrast (05/26/2024 4:40 PM CDT) Anatomical Region Laterality Modality Head Magnetic Resonan ce 05/26/2024 4:50 PM CDT Impressions 05/27/2024 9:20 AM CDT IMPRESSION: 1.No acute intracranial abnormality including acute infarct, hemorrhage, or midline shift. Report dictated by Kem Diaz MD, PhD (resident care aide). I, Monika Her MD have personally reviewed and interpreted this examination/study. > Interpreting Provider: Monika Her MD on 05/27/2024 9:20 AM Narrative 05/27/2024 9:20 AM CDT PROCEDURE: ??MRI BRAIN WO CONTRAST, DATE/TIME OF EXAM: ??05/26/2024 4:41 PM, LOCATION ??[facility] INDICATION: I63.9: Cerebrovascular accident (CVA), unspecified mechanism [...] DATE/TIME OF EXAM: 05/26/2024 4:41PM, LOCATION [facility] INDICATION: I63.9: Cerebrovascular accident (CVA), unspecified mechanism [...] Report dictated by Kem Diaz MD, PhD (resident care aide). I, Monika Her MD have personally reviewed and interpreted this examination/study. > Interpreting Provider: Monika Her MD on 05/27/2024 9:20 AM Jason Coppola MD MR ORDERABLES * GLUCOSE - POINT OF CARE (05/26/2024 8:27 AM CDT) [facility] Glucose WB/POC 100 70 - 115 mg/dL 05/26/2024 8:59 AM CDT [facility] Specimen Type Venous 05/26/2024 8:59 AM CDT [facility] Blood BLOOD SPECIMEN / Unknown 05/26/2024 8:27 AM CDT 05/26/2024 8:59 AM CDT Jason Coppola MD LAB - POINT OF CARE ORDERABLES [address] [address], [facility] [phone] * (ABNORMAL) CBC W AUTO DIFFERENTIAL (05/26/2024 8:27 AM CDT) [facility] WBC 7.7 4.0 - 10.7 x10E9/L 05/26/2024 8:39 AM [facility] RBC Count 3.94(L) 4.30 - 5.80 x10E12/L 05/26/2024 8:39 AM [facility] Hemoglobin 10.6(L) 13.3 - 17.5 g/dL 05/26/2024 8:39 AM [facility] Hematocrit 33.0(L) 38.7 - 51.1 % 05/26/2024 8:39 AM [facility] MCV 83.8 80.0 - 98.0 fL 05/26/2024 8:39 AM [facility] MCH 26.9 26.7 - 33.6 pg 05/26/2024 8:39 AM [facility] MCHC 32.1 31.7 - 36.3 g/dL 05/26/2024 8:39 AM [facility] RDW-CV 14.6 11.3 - 14.8 % 05/26/2024 8:39 AM [facility] Platelet Count 220 150 - 420 x10E9/L 05/26/2024 8:39 AM [facility] MPV 9.8 7.8 - 11.4 fL 05/26/2024 8:39 AM [facility] Neutrophil % 60.9 41.0 - 74.0 % 05/26/2024 8:39 AM [facility] Lymphocyte % 29.5 17.0 - 47.0 % 05/26/2024 8:39 AM [facility] Monocyte % 8.0 3.0 - 11.0 % 05/26/2024 8:39 AM [facility] Eosinophil % 1.2 0.0 - 7.0 % 05/26/2024 8:39 AM [facility] Basophil % 0.3 0.0 - 1.6 % 05/26/2024 8:39 AM [facility] Immature Granulocytes % 0.1 0.0 - 1.0 % 05/26/2024 8:39 AM [facility] Neutrophil Absolute 4.68 1.60 - 7.50 x10E9/L 05/26/2024 8:39 AM CDT [facility] Lymphocyte Absolute 2.26 1.00 - 4.40 x10E9/L 05/26/2024 8:39 AM CDT [facility] Monocyte Absolute 0.61 0.15 - 1.00 x10E9/L 05/26/2024 8:39 AM CDT [facility] Eosinophil Absolute 0.09 0.00 - 0.60 x10E9/L 05/26/2024 8:39 AM CDT [facility] Basophil Absolute 0.02 0.00 - 0.13 x10E9/L 05/26/2024 8:39 AM CDT [facility] Blood BLOOD SPECIMEN / Unknown Venipuncture / Unknown 05/26/2024 8:27 AM CDT 05/26/2024 8:32 AM CDT Jason Coppola MD LAB - HEMATOLOGY ORD ERABLES [address] [address], [facility] [phone] * PHOSPHORUS BLOOD (05/26/2024 8:27 AM CDT) Phosphorus 3.7 2.8 - 5.1 mg/dL 05/26/2024 9:02 AM CDT [facility] Blood BLOOD SPECIMEN / Unknown Venipuncture / Unknown 05/26/2024 8:27 AM CDT 05/26/2024 8:32 AM CDT Jason Coppola MD LAB - CHEMISTRY ORDE DUNG [address] [address], [facility] [phone] * (ABNORMAL) MAGNESIUM BLOOD (05/26/2024 8:27 AM CDT) Magnesium 1.3(L) 1.6 - 2.6 mg/dL 05/26/2024 9:02 AM CDT [facility] Blood BLOOD SPECIMEN / Unknown Venipuncture / Unknown 05/26/2024 8:27 AM CDT 05/26/2024 8:32 AM CDT Jason Coppola MD LAB - CHEMISTRY CHRISTIAN RAZO [facility] Organization Address City/State/ZIP Co de Phone Number [facility] [address] [place] [address], [facility] [phone] * (ABNORMAL) BASIC METABOLIC PANEL (CALCIUM TOTAL) (05/26/2024 8:27 AM CDT) BUN 14 7 - 26 mg/dL 05/26/2024 9:02 AM [facility] Creatinine 0.67(L) 0.71 - 1.16 mg/dL 05/26/2024 9:02 AM [facility] Sodium 139 136 - 145 mmol/L 05/26/2024 9:02 AM [facility] Potassium 3.8 3.5 - 4.5 mmol/L 05/26/2024 9:02 AM [facility] Chloride 110(H) 98 - 107 mmol/L 05/26/2024 9:02 AM [facility] CO2 21(L) 22 - 29 mmol/L 05/26/2024 9:02 AM [facility] Glucose 101 70 - 115 mg/dL 05/26/2024 9:02 AM [facility] Calcium 8.1(L) 8.4 - 10.2 mg/dL 05/26/2024 9:02 AM [facility] Anion Gap 8 6 - 16 05/26/2024 9:02 AM [facility] BUN/Creatinine Ratio 21 7 - 23 05/26/2024 9:02 AM [facility] Osmolality Calculated 289 275 - 295 mOsm/kg 05/26/2024 9:02 AM [facility] eGFR by CKD-EPI >90 >=90 mL/min/1.7 3 m2 05/26/2024 9:02 AM [facility] Blood BLOOD SPECIMEN / Unknown Venipuncture / Unknown 05/26/2024 8:27 AM CDT 05/26/2024 8:32 AM CDT Jason Coppola MD LAB - CHEMISTRY CHRISTIAN RAZO [facility] [address] [place] [address], [facility] [phone] documented in this encounter Visit Diagnoses Diagnosis Cerebrovascular accident (CVA), unspecified mechanism (HCC)- Primary Cerebrovascular accident (CVA), unspecified mechanism (HCC) Syncope, unspecified syncope type Dysphagia, unspecified type Controlled type 2 diabetes mellitus without complication, without long-term current use of insulin (HCC) Essential hypertension Altered mental status, unspecified altered mental status type H/O: CVA (cerebrovascular accident) Seizure-like activity (HCC) Other convulsions Basilar artery stenosis Occlusion and stenosis of basilar artery without mention of cerebral infarction documented in this encounter Administered Medications Inactive Administered Medications - up to 3 most recent administrations Medication Order MAR Action Action Date Dose Rate Site 0.9% NaCl injection 1-10 mL 1-10 mL, Intracatheter, PRN, Other, peripheral line flush, Starting on Sun05/25/24 at 214, Until Sun06/04/24 at 2017, Flush peripheral IV catheter with 1-10 mL of normal saline before and after medications and prn to clear blood from the line or to verify patency. 0.9% NaCl injection 10 mL 10 mL, Intracatheter, INTRA-PROCEDURE MULTIPLE, Starting on Sun06/03/24 at 1435, Until Sun06/03/24 at 1834, For Echo Procedure - Per Protocol Agitate saline before administration. $ Given 06/03/2024 3:16 PM CDT 10 mL 0.9% NaCl injection 3 mL 3 mL, Intracatheter, EVERY 8 HOURS, First dose on Sun05/25/24 at 2215, Until Discontinued, Flush peripheral IV catheter with 3 mL of normal saline every 8 hours. $ Given 06/03/2024 8:50 PM CDT 3 mL $ Given 06/03/2024 3:47 PM CDT 3 mL $ Given 06/02/2024 9:07 PM CDT 3 mL acetaminophen (Tylenol) tablet 650 mg 650 mg, Per G Tube, EVERY 6 HOURS PRN, Mild Pain, Starting on Sun05/25/24 at 2147, Until Sun06/04/24 at 2017, Patient preference for lesser PRN pain meds [...] patient cannot tolerate oral intake $ Given 06/03/2024 6:10 PM CDT 650 mg albuterol-ipratropium (Duo-Neb) nebulizer solution 3 mL 3 mL, Inhalation, EVERY 6 HOURS PRN, Shortness of Breath, Wheezing, Starting on Sun05/26/24 at 1130, Until Sun06/04/24 at 2017 amLODIPine (Norvasc) tablet 10 mg 10 mg, Enteral Tube, DAILY, First dose on Sun05/26/24 at 0900, Until Discontinued $ Given 06/04/2024 8:27 AM CDT 10 mg G Tub e $ Given 06/03/2024 9:17 AM CDT 10 mg G Tube $ Given 06/02/2024 8:51 AM CDT 10 mg G Tube aspirin chew tablet 81 mg 81 mg, Enteral Tube, DAILY, First dose on Sun05/26/24 at 0900, Until Discontinued $ Given 06/04/2024 8:27 AM CDT 81 mg G Tub e $ Given 06/03/2024 9:17 AM CDT 81 mg G Tube $ Given 06/02/2024 8:51 AM CDT 81 mg G Tube atorvastatin (Lipitor) tablet 40 mg 40 mg, Enteral Tube, AT BEDTIME, First dose on Sun05/25/24 at 2230, Until Discontinued $ Given 06/03/2024 8:50 PM CDT 40 mg G Tub e $ Given 06/02/2024 9:05 PM CDT 40 mg G Tube $ Given 06/01/2024 8:36 PM CDT 40 mg G Tube barium (Varibar Thin) 40 % liquid SUSR 120 mL 120 mL, Oral, ONCE, 1 dose, On Sun06/03/24 at 1600 $ Given - Contrast 06/03/2024 3:37 PM CDT 120 mL barium (Varibar) 40 % paste PSTE Oral, ONCE, 1 dose, On Sun06/03/24 at 1600 $ Given - Contrast 06/03/2024 3:39 PM CDT 30 mL bisacodyl (Dulcolax) suppository 10 mg 10 mg, Rectal, ONCE PRN, Constipation, if no BM 24 hours after oral bisacodyl, 1 dose, Starting on Sun05/25/24 at 2146, Until Sun06/04/24 at 2017 busPIRone (Buspar) tablet 5 mg 5 mg, Per G Tube, 3 TIMES DAILY, First dose on Sun05/25/24 at 2230, Until Discontinued $ Given 06/04/2024 3:22 PM CDT 5 mg $ Given 06/04/2024 8:27 AM CDT 5 mg $ Given 06/03/2024 8:50 PM CDT 5 mg calcium gluconate 1 g in 50 mL NaCl 0.675% 1 g, at 100 mL/hr, Intravenous, ONCE, 1 dose, On Sun05/26/24 at 1045 $ New Bag/Syringe 05/26/2024 11:29 AM CDT 1 g 100 mL/hr clopidogrel (plaVIX) tablet 75 mg 75 mg, Enteral Tube, DAILY, First dose on Sun05/26/24 at 0900, Until Discontinued $ Given 06/04/2024 8:27 AM CDT 75 mg G Tube $ Given 06/03/2024 9:17 AM CDT 75 mg G Tube $ Given 06/02/2024 8:51 AM CDT 75 mg G Tube famotidine (Pepcid) tablet 20 mg 20 mg, Enteral Tube, 2 TIMES DAILY, First dose on Sun05/25/24 at 2230, Until Discontinued $ Given 06/04/2024 8:27 AM CDT 20 mg G Tube $ Given 06/03/2024 8:51 PM CDT 20 mg G Tube $ Given 06/03/2024 9:17 AM CDT 20 mg G Tube folic acid (Folvite) tablet 1 mg 1 mg, Enteral Tube, DAILY, First dose on Sun05/26/24 at 0900, Until Discontinued $ Given 06/04/2024 8:27 AM CDT 1 mg G Tube $ Given 06/03/2024 9:17 AM CDT 1 mg G Tube $ Given 06/02/2024 8:51 AM CDT 1 mg G Tube heparin injection 5,000 Units 5,000 Units, Subcutaneous, EVERY 8 HOURS, First dose on Sun05/26/24 at 0815, Until Discontinued $ Given 06/04/2024 3:22 PM CDT 5,000 Units Abd Left Lower Quadrant $ Given 06/04/2024 4:43 AM CDT 5,000 Units A bd Left Lower Quadrant $ Given 06/03/2024 8:51 PM CDT 5,000 Units A bd Right Upper Quadrant iopamidol (Isovue 370) 76 % contrast Intravenous, CONTRAST ONCE, Starting on Sun05/26/24 at 1659, Until Sun05/28/24 at 1658 $ Given - Contrast 05/26/2024 4:59 PM CDT 100 mL iopamidol (Isovue 370) 76 % contrast Intravenous, CONTRAST ONCE, Starting on Sun05/29/24 at 0027, Until Sun05/31/24 at 0026 $ Given - Contrast 05/29/2024 12:41 AM CDT 75 mL magnesium sulfate 2 g in 50 mL bolus 2 g, at 25 mL/hr, Administer over 120 Minutes, Intravenous, ONCE, 1 dose, On Sun05/26/24 at 1045, Infuse at 1 gm/hr $ New Bag/Syringe 05/26/2024 12:03 PM CDT 2 g 25 mL/hr magnesium sulfate 4 g in 100 mL bolus 4 g, at 25 mL/hr, Administer over 240 Minutes, Intravenous, ONCE, 1 dose, On Sun05/29/24 at 0830, Infuse at 1 gm/hr $ New Bag/Syringe 05/29/2024 9:57 AM CDT 4 g 25 mL/hr magnesium sulfate 4 g in 100 mL bolus 4 g, at 25 mL/hr, Administer over 240 Minutes, Intravenous, ONCE, 1 dose, On Sun06/01/24 at 0800, Infuse at 1 gm/hr $ New Bag/Syringe 06/01/2024 9:25 AM CDT 4 g 25 mL/hr magnesium sulfate 4 g in 100 mL bolus 4 g, at 25 mL/hr, Administer over 240 Minutes, Intravenous, ONCE, 1 dose, On Sun06/03/24 at 1515, Infuse at 1 gm/hr $ New Bag/Syringe 06/03/2024 4:00 PM CDT 4 g 15 mL/hr perflutren lipid microsphere (Definity) injection 0.5 mL 0.5 mL, Intravenous, INTRA-PROCEDURE MULTIPLE, Starting on Sun06/03/24 at 1435, Until Sun06/03/24 at 1834, For Echo Procedure - Per Protocol Give slowly Shake well before using. $ Given 06/03/2024 3:16 PM CDT 0.5 mL polyethylene glycol 3350 (Miralax) packet 17 g 17 g, Oral, DAILY, First dose (after last modification) on Sun05/26/24 at 0900, Until Discontinued, Administer daily when escalating to bisacodyl or fleet $ Given 06/04/2024 8:27 AM CDT 17 g $ Given 06/03/2024 9:17 AM CDT 17 g $ Given 06/02/2024 8:52 AM CDT 17 g potassium chloride ER (Klor-Con M) tablet 20 mEq 20 mEq, Oral, ONCE, 1 dose, On Sun06/01/24 at 0800, Do not crush or chew. $ Given 06/01/2024 8:59 AM CDT 20 mE q senna-docusate (Senokot-S) tablet 1 tablet 1 tablet, Oral, DAILY, First dose on Sun05/26/24 at 0900, Until Discontinued $ Given 06/04/2024 8:27 AM CDT 1 tablet $ Given 06/03/2024 9:17 AM CDT 1 tablet $ Given 06/02/2024 8:51 AM CDT 1 tablet sodium phosphate rectal (Fleet Saline) enema 133 mL 133 mL (1 enema), Rectal, ONCE PRN, Constipation, if no BM 4 hours after bisacodyl suppository, 1 dose, Starting on Sun05/25/24 at 2146, Until Sun06/04/24 at 2017, Gently insert enema tip pointed towards the navel into the rectum using a slight side to side movement; do not force tip into the rectum. Insertion may be easier if patient bears down as if having a bowel movement. Squeeze bottle until nearly all liquid is gone; bottle does not need to be empty. Have patient remain on left-side position or knee-chest position until urge for bowel movement occurs (~1 to 5 minutes). thiamine (Vitamin B-1) tablet 100 mg 100 mg, Enteral Tube, DAILY, First dose on Sun05/26/24 at 0900, Until Discontinued $ Given 06/04/2024 8:27 AM CDT 100 mg G Tub e $ Given 06/03/2024 9:17 AM CDT 100 mg G Tube $ Given 06/02/2024 8:51 AM CDT 100 mg G Tube documented in this encounter Active and Recently Administered Medications Times are shown in CDT. Scheduled Medication Order 06/02/2024 06/03/2024 06/04/2024 0.9% NaCl injection 10 mL () 10 mL, Intracatheter, INTRA-PROCEDURE MULTIPLE, Starting on Sun06/03/24 at 1435, Until Sun06/03/24 at 1834, For Echo Procedure - Per Protocol Agitate saline before administration. 1516 ($ Given - Provider: Isabella Cisneros [facility]) 0.9% NaCl injection 3 mL(Linked Group 1) 3 mL, Intracatheter, EVERY 8 HOURS, First dose on Sun05/25/24 at 2215, Until Discontinued, Flush peripheral IV catheter with 3 mL of normal saline every 8 hours. 0452 ($ Given - Provider: Radha Batista RN)1342 ($ Given - Provider: Thea Negrete RN)2107 ($ Given - Provider: Rebecca Garcia RN) 0634 (Not Administered - Provider: Radha Batista RN - Reason: Other)1547 ($ Given - Provider: Iban Martin RN)2050 ($ Given - Provider: Radha Batista RN) 0449 (Not Administered - Provider: Radha Batista RN - Reason: Other)1456 (Canceled Entry - Provider: Iban Martin, RN) amLODIPine (Norvasc) tablet 10 mg 10 mg, Enteral Tube, DAILY, First dose on Sun05/26/24 at 0900, Until Discontinued 0851 ($ Given - Provider: Thea Negrete RN) 0917 ($ Given - Provider: Iban Martin, RN) 0827 ($ Given - Provider: Iban Martin, RN) aspirin chew tablet 81 mg 81 mg, Enteral Tube, DAILY, First dose on Sun05/26/24 at 0900, Until Discontinued 0851 ($ Given - Provider: Thea Negrete RN) 0917 ($ Given - Provider: Iban Martin, RN) 0827 ($ Given - Provider: Iban Martin, RN) atorvastatin (Lipitor) tablet 40 mg 40 mg, Enteral Tube, AT BEDTIME, First dose on Sun05/25/24 at 2230, Until Discontinued 210 ($ Given - Provider: Rebecca Garcia RN) 2049 ($ Given - Provider: Radha Batista RN) barium (Varibar Thin) 40 % liquid SUSR 120 mL (COMPLETED) 120 mL, Oral, ONCE, 1 dose, On Sun06/03/24 at 1600 1537 ($ Given - Contrast - Provider: Maureen Worrell RT) barium (Varibar) 40 % paste PSTE (COMPLETED) Oral, ONCE, 1 dose, On Sun06/03/24 at 1600 1539 ($ Given - Contrast - Provider: RT Alex) busPIRone (Buspar) tablet 5 mg 5 mg, Per G Tube, 3 TIMES DAILY, First dose on Sun05/25/24 at 2230, Until Discontinued 0851 ($ Given - Provider: Thea Negrete RN)1342 ($ Given - Provider: Thea Negrete RN)2108 ($ Given - Provider: Rebecca Garcia RN) 0916 ($ Given - Provider: Iban Martin, RN)1546 ($ Given - Provider: Iban Martin, RN)2049 ($ Given - Provider: Radha Batista RN) 0827 ($ Given - Provider: Iban Martin, RN)1522 ($ Given - Provider: Iban Martin, RN) clopidogrel (plaVIX) tablet 75 mg 75 mg, Enteral Tube, DAILY, First dose on Sun05/26/24 at 0900, Until Discontinued 0851 ($ Given - Provider: Thea Negrete RN) 0917 ($ Given - Provider: Iban Martin, RN) 0827 ($ Given - Provider: Iban Martin, RN) famotidine (Pepcid) tablet 20 mg 20 mg, Enteral Tube, 2 TIMES DAILY, First dose on Sun05/25/24 at 2230, Until Discontinued 0851 ($ Given - Provider: Thea Negrete RN)2106 ($ Given - Provider: Rebecca Garcia RN) 0917 ($ Given - Provider: Iban Martin, RN)205 ($ Given - Provider: Radha Batista RN) 0827 ($ Given - Provider: Iban Martin RN) folic acid (Folvite) tablet 1 mg 1 mg, Enteral Tube, DAILY, First dose on Sun05/26/24 at 0900, Until Discontinued 0851 ($ Given - Provider: Thea Negrete RN) 0917 ($ Given - Provider: Iban Martin RN) 0827 ($ Given - Provider: Iban Martin RN) heparin injection 5,000 Units 5,000 Units, Subcutaneous, EVERY 8 HOURS, First dose on Sun05/26/24 at 0815, Until Discontinued 0452 ($ Given - Provider: Radha Batista RN)1342 ($ Given - Provider: Thea Negrete RN)2106 ($ Given - Provider: Rebecca Garcia RN) 0633 ($ Given - Provider: Radha Batista, RN)1546 ($ Given - Provider: Iban Martin, RN)2051 ($ Given - Provider: Radha Batista, RN) 0443 ($ Given - Provider: Radha Batista, RN)1522 ($ Given - Provider: Iban Martin, RN) magnesium sulfate 4 g in 100 mL bolus (COMPLETED) 4 g, at 25 mL/hr, Administer over 240 Minutes, Intravenous, ONCE, 1 dose, On Sun06/03/24 at 1515, Infuse at 1 gm/hr 1600 ($ New Bag/Syringe - Provider: Iban Martin RN)205 (Stopped - Provider: Radha Batista RN) perflutren lipid microsphere (Definity) injection 0.5 mL () 0.5 mL, Intravenous, INTRA-PROCEDURE MULTIPLE, Starting on Sun06/03/24 at 1435, Until Sun06/03/24 at 1834, For Echo Procedure - Per Protocol Give slowly Shake well before using. 1516 ($ Given - Provider: Isabella Cisneros RDCS) polyethylene glycol 3350 (Miralax) packet 17 g 17 g, Oral, DAILY, First dose (after last modification) on Sun05/26/24 at 0900, Until Discontinued, Administer daily when escalating to bisacodyl or fleet 0852 ($ Given - Provider: Thea Negrete RN) 0917 ($ Given - Provider: Iban Martin RN) 0827 ($ Given - Provider: Iban Martin RN) senna-docusate (Senokot-S) tablet 1 tablet 1 tablet, Oral, DAILY, First dose on Sun05/26/24 at 0900, Until Discontinued 0851 ($ Given - Provider: Thea Negrete RN) 09 ($ Given - Provider: Iban Martin, RN) 08 ($ Given - Provider: Iban Martin, RN) thiamine (Vitamin B-1) tablet 100 mg 100 mg, Enteral Tube, DAILY, First dose on Sun05/26/24 at 0900, Until Discontinued 0851 ($ Given - Provider: Thea Negrete RN) 09 ($ Given - Provider: Iban Martin, RN) 08 ($ Given - Provider: Iban Martin RN) PRN Medication Order 06/02/2024 06/03/2024 06/04/2024 0.9% NaCl injection 1-10 mL(Linked Group 1) 1-10 mL, Intracatheter, PRN, Other, peripheral line flush, Starting on Sun05/25/24 at 2143, Until Sun06/04/24 at 2016, Flush peripheral IV catheter with 1-10 mL of normal saline before and after medications and prn to clear blood from the line or to verify patency. acetaminophen (Tylenol) tablet 650 mg 650 mg, Per G Tube, EVERY 6 HOURS PRN, Mild Pain, Starting on Sun05/25/24 at 2147, Until Sun06/04/24 at 2016, Patient preference for lesser PRN pain meds [...] first unless patient cannot tolerate oral intake 1810 ($ Given - Provider: Iban Martin RN) albuterol (Proventil;Ventolin) (5 MG/ML) 0.5% nebulizer solution 2.5 mg 2.5 mg, Inhalation, EVERY 4 HOURS PRN, Shortness of Breath, Wheezing, Starting on Sun05/25/24 at 2148, Until Sun06/04/24 at 2016 albuterol-ipratropium (Duo-Neb) nebulizer solution 3 mL 3 mL, Inhalation, EVERY 6 HOURS PRN, Shortness of Breath, Wheezing, Starting on 05/26/24 at 1130, Until Sun06/04/24 at 2016 bisacodyl (Dulcolax) suppository 10 mg 10 mg, Rectal, ONCE PRN, Constipation, if no BM 24 hours after oral bisacodyl, 1 dose, Starting on Sun05/25/24 at 2146, Until Sun06/04/24 at 2016 sodium phosphate rectal (Fleet Saline) enema 133 mL 133 mL (1 enema), Rectal, ONCE PRN, Constipation, if no BM 4 hours after bisacodyl suppository, 1 dose, Starting on Sun05/25/24 at 2146, Until Sun06/04/24 at 2016, Gently insert enema tip pointed towards the navel into the rectum using a slight side to side movement; do not force tip into the rectum. Insertion may be easier if patient bears down as if having a bowel movement. Squeeze bottle until nearly all liquid is gone; bottle does not need to be empty. Have patient remain on left-side position or knee-chest position until urge for bowel movement occurs (~1 to 5 minutes). Linked Groups Order Group 1: SALINE LOCK, INSERT AND MAINTAIN (CANCELED) Routine, CONTINUOUS, Starting on Sun05/25/24 at 2145, Until Specified, New collection And 0.9% NaCl injection 3 mLJump to med 3 mL, Intracatheter, EVERY 8 HOURS, First dose on Sun05/25/24 at 2215, Until Discontinued, Flush peripheral IV catheter with 3 mL of normal saline every 8 hours. And 0.9% NaCl injection 1-10 mLJump to med 1-10 mL, Intracatheter, PRN, Other, peripheral line flush, Starting on Sun05/25/24 at 2143, Until Sun06/04/24 at 2016, Flush peripheral IV catheter with 1-10 mL of normal saline before and after medications and prn to clear blood from the line or to verify patency. documented in this encounter Care Teams Certified Novell Administrator Relationship Specialty Start Date End Date Kiana Cole MD [address] [place] [id number] PCP - General Internal Medicine 05/22/24 08/04/24 Sylvain Daniels MD Family Medicine 02/15/24 documented as of this encounter
--- OUTSIDE RECORDS SUMMARY | 2024-10-11 19:41 | XMS_ITS | Encounter Summary ---
Author Organization [facility] Health Address [address] [place] [address] Care Team Providers Care Pot Sander Name Role Phone None, Physician Primary Care Provider Sylvain Hopper MD Unavailable [phone] Reason for Visit * Auth/Cert (Routine) Specialty Diagnoses / Procedures Referred By Jenna saleem Referred To Contact Procedures [place] EGD FLEX TRANSORAL W PLCMT GTUBE PERC ESOPHAGOGASTRODUODENOSCOPY (EGD) WITH PEG PLACEMENT Referral ID Status Reason Start Date Expiration Date Visits Re quested Visits Authorized [id number] 1 1 Encounter Details Date Type Department Care Team (Late st Contact Info) Description 03/17/2024 1:11 PM CDT Anesthesia Event [facility] - Endoscopy [facility] [address] [place] [address] Sage Mathur MD [address] [facility] [place] [address] Jada Marie, ELECTRONIC HEALTH RECORDS SPECIALIST-FILM VAULT SUPERVISOR [address] [place] [phone] Anesthesia Record Procedure Summary Procedure Name Responsible Anesthesiologist Anesthesia Start Time Anesthesia Stop Time ESOPHAGOGASTRODUODENOSCOPY ( EGD) WITH PEG PLACEMENT Sage Mathur MD 03/17/24 1311 03/17/24 1336 Events Date Time Event Comment 03/17/2024 1311 An Start 1311 An Start Data 1315 PT Reassessment 1315 Timeout Anesthesia part icipated in timeout at the time documented in the record by nursing. 1334 [employer] Sig This record is electronically signed by the providers listed under staff. 1334 an stop data 1336 An Stop Meds Name Total lidocaine 2% injection (20 mg/ml) 100 mg ceFAZolin 2 g IVPB 2 g propofol (DIPRIVAN) injection 10mg/ml (E NDO USE) 19 mL * Agents Name Exp. N2O O2 * Blood No blood administrations on file. Lines, Drains, and Airways Type Details Placement Removal Enteral - 01/30/24; 1514; Dr. Ruffin; PEG; Abdomen, Midline, Upper; 20; [id number]; Sedated 01/30/24 1514 by Tarah Rodriguez RN Enteral - 03/17/24; 1342; Alex Lopez MD; PEG; Abdomen, Left, Upper; 4.5 cm; 20; [employer]; [id number]; [id number]; Well 03/17/24 1342 by Beckie Angel RN Trach 02/05/24; 0800; grad y; [place]; Cuffed; Water ([place]); 8 MM; 05/25/24; Not present on admission, removal date unknown 02/05/24 0800 by Sejal Bautista [facility] 05/25/24 0000 by Triny Fernández, RN documented in this encounter Social History Tobacco [...] No 01/24/2024 documented as of this encounter Progress Notes * Reading, Jada R, ELECTRONIC HEALTH RECORDS SPECIALIST-FILM VAULT SUPERVISOR - 03/17/2024 1:36 PM CDT ANESTHESIA POSTOP EVALUATION NOTE Procedure: ESOPHAGOGASTRODUODENOSCOPY (EGD) WITH PEG PLACEMENT Yaya Vazquez Jr. is a 63 year old male Patient Vitals for the past 6 hrs: BP Temp Pulse Resp SpO2 03/17/24 1238 (!) 138/100 97.4 ??F (36.3 ??C) 99 18 99 % 03/17/24 1249 148/94 -- -- -- -- Anesthesia Type: MAC * No Diagnosis Codes entered * Mental Status: alert, arousable and sufficiently recovered from acute administration of anesthesia to participate in the evaluation Neuro Status: No numbness, tingling or visual disturbances Respiratory Function: natural Cardiac Function: stable Postop Pain: adequate Postop Hydration: adequate Postop Nausea: none Assessment: no apparent anesthetic complications, patient tolerated procedure well and no evidence of recall Patient Disposition: Release from Anesthesia Care NOTABLE EVENTS: No notable events documented. * Jada Marie APRN-CRNA - 03/17/2024 1:01 PM CDT ANESTHESIA PREOPERATIVE EVALUATION NOTE Procedure: ESOPHAGOGASTRODUODENOSCOPY (EGD) WITH PEG PLACEMENT NPO status: Since Midnight (03/17/2024 12:47 PM) Vitals: Patient Vitals for the past 6 hrs: BP Temp Pulse Resp SpO2 03/17/24 1249 148/94 -- -- -- -- 03/17/24 1238 (!) 138/100 97.4 ??F (36.3 ??C) 99 18 99 % LMP: No LMP for male patient. OB Status: unknown ANESTHESIA PRE-EVALUATION NOTE The patient is a current non-smoker. Physical Exam: No Orientation X3 Mallampati score: LEXI. Teeth: normal Heart: normal - S1 S2 Lungs: clear to ausculation bilaterally Abdomen Exam: obese Review of Systems: History of anesthetic complications: No Sleep Apnea Risk: No Malignant Hyperthermia: No GERD: Yes Poor Exercise Tolerance: Yes Recent Chest Pain: No Shortness of Breath: No AICD/Pacemaker: No Renal Disease: No Diagnostic Tests: Lab(s) reviewed: Yes. ANESTHESIA PLAN ASA Score: 3 NPO Status: No solids since midnight Anesthesia Plan: MAC Planned Induction: intravenous Planned Postop Destination: endo Anesthetic plan was discussed with: patient Anesthetic Plan discussion was: Consented The patient's procedural Anesthetic Plan was discussed with the anesthesiologist. BMI, Height, Weight Tobacco History Estimated body mass index is 29.84 kg/m?? as calculated from the following: Height as of this encounter: 1.829 m (6'). Weight as of this encounter: 99.8 kg (220 lb). Social History Tobacco Use Smoking Status Not on file Smokeless Tobacco Not on file Alcohol History Drug History Social History Substance and Sexual Activity Alcohol Use Not on file Social History Substance and Sexual Activity Drug Use Not on file Outpatient Medications: Inpatient Medications: No outpatient medications have been marked as taking for the 03/12/24 encounter (Hospital Encounter). No current facility-administered medications for this encounter. Allergies: Allergies Allergen Reactions Lisinopril Other Hives Pcn [Penicillins] Other Hives Relevant Problems Problem List: There are no problems to display for this patient. 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 unknown OB History No obstetric history on file. Covid Vaccine: Lab Results: Recent Labs Component Name 03/17/24 0353 WBC 8.3 RBC 4.00* HCT 36.1* HGB 11.0* PLTCOUNT 263 MCV 90.3 MCH 27.5 MCHC 30.5* MPV 9.5 Recent Labs Component Name 02/26/24 2210 BLOODUA 1+* WBCUA >100* NITRITEUA Positive* PROTEINUA 1+* Recent Labs Component Name 03/17/24 0353 SODIUM 138 POTASSIUM 3.6 CALCIUM 9.9 CHLORIDE 103 CO2 24 GLUCOSE 127* BUN 19 CREATININE 0.90 Recent Labs Component Name 03/09/24 0954 MAGNESIUM 1.6 Recent Labs Component Name 03/11/24 1654 PH 7.43 PO2 69* PCO2 45 BE 4.9* Recent Labs Component Name 02/16/24 0450 TSH 1.6844 Recent Labs Component Name 03/08/24 1301 BNP 18 No results found for requested labs within last 120 days. Recent Labs Result Component Current Result Albumin 3.0 (L) (03/11/2024) Alkaline Phosphatase 69 (03/11/2024) ALT 18 (03/11/2024) Anion Gap 11 (03/17/2024) AST 15 (03/11/2024) Bilirubin Total 0.3 (03/11/2024) eGFR by CKD-EPI >90 (03/17/2024) documented in this encounter Miscellaneous Notes * Anesthesia Transfer of Care - Jada Marie APRN-FILM VAULT SUPERVISOR - 03/17/2024 1:34 PM CDT ANESTHESIA TRANSFER OF CARE NOTE Today's Date: 03/17/2024 Date of : 1960 Patient: Yaya Vazquez Jr. Procedure(s): ESOPHAGOGASTRODUODENOSCOPY (EGD) WITH PEG PLACEMENT Surgeon(s): Primary: Alex Lopez MD Preop Diagnosis: * No Diagnosis Codes entered * Pre-op Meds (From admission, onward) Start Stop Status Route Frequency Ordered 03/17/24 1319 ceFAZolin (Ancef) injection -- Sent IV PRN 03/17/24 1333 03/17/24 1315 lidocaine HCl (PF) (Xylocaine MPF) 2 % injection -- Sent IV PRN 03/17/24 1333 03/17/24 1315 propofol (Diprivan) injection -- Sent IV CONTINUOUS PRN 03/17/24 1333 * No Diagnosis Codes entered * . Allergies Allergen Reactions Lisinopril Other Hives Pcn [Penicillins] Other Hives Vitals: Patient Vitals for the past 3 hrs: BP Temp Pulse Resp SpO2 03/17/24 1249 148/94 -- -- -- -- 03/17/24 1238 (!) 138/100 97.4 ??F (36.3 ??C) 99 18 99 % Lines, Drains, and Airways No lines, drains, or airways are recorded for this episode. Intraprocedure I/O Totals Intake propofol (DIPRIVAN) injection 10mg/ml (ENDO USE) 19.00 mL Total Intake 19 mL Patient Transfer Location: Endo Recovery Transport Airway: spontaneous respirations and supplemental O2 Complications: None Handoff Given? Yes Checklist or Protocol - The paula handoff elements that must be included in the transfer of care checklist include: 1. Identification of patient. 2. Identification of responsible practitioner (PACU nurse or advanced practitioner). 3. Discussion of pertinent medical history. 4. Discussion of the surgical/procedure course (procedure, reason for surgery, procedure performed). 5. Intraoperative anesthetic management and issue/concerns. 6. Expectations/Plans for the early post-procedure period. 7. Opportunity for questions and acknowledgement of understanding of report from the receiving PACUteam. MELYSSA Kohler documented in this encounter Plan of Treatment Upcoming Encounters Date Type Department Care Team (Late st Contact Info) Description 10/20/2024 8:00 AM SUPPRESSION CREW LEADER Office Visit [facility] - Family Medicine [address] [facility] [address] [place] [phone] Kiana Cole MD [address] [place] [address] 11/28/2024 9:00 AM SUPPRESSION CREW LEADER Office Visit [facility] - Neurology [address] [facility] [place] [address] Aline Finch MD [address] [facility] [place] [address] 02/10/2025 10:00 AM CDT Office Visit [facility] - Cardiology [address] [place] [address] Curly Lay MD [id number] [place] [address] documented as of this encounter Visit Diagnoses Not on filedocumented in this encounter Administered Medications Inactive Administered Medications - up to 3 most recent administrations Medication Order MAR Action Action Date Dose Rate Site ceFAZolin (Ancef) injection Intravenous, PRN, Starting on Sun03/17/24 at 1319, Until Sun03/17/24 at 1336, Anesthesia Intra-op $ Given 03/17/2024 1:19 PM CDT 2 g lidocaine HCl (PF) (Xylocaine MPF) 2 % injection Intravenous, PRN, Starting on Sun03/17/24 at 1315, Until Sun03/17/24 at 1336, Anesthesia Intra-op $ Given 03/17/2024 1:15 PM CDT 100 mg propofol (Diprivan) injection Intravenous, CONTINUOUS PRN, Starting on Sun03/17/24 at 1315, Until Sun03/17/24 at 1336, Anesthesia Intra-op $ New Bag/Syringe 03/17/2024 1:15 PM CDT documented in this encounter Care Teams Pot Sander Relationship Specialty Start Date End Date None, Physician [address] [place] [address] PCP - General 02/15/24 05/16/24 Sylvain Daniels MD [address] [place] [address] Family Medicine 02/15/24 documented as of this encounter
--- OUTSIDE RECORDS SUMMARY | 2024-10-11 19:41 | XMS_ITS | Encounter Summary ---
Author Organization [facility] Address [address] [place] [address] Care Team Providers Care Cooker Helper Name Role Phone None, Physician Primary Care Provider Sylvain Hopper MD Unavailable [phone] Reason for Visit * Auth/Cert (Routine) Specialty Diagnoses / Procedures Referred By Jenna t Referred To Contact Procedures [place] EGD FLEX TRANSORAL W PLCMT GTUBE PERC ESOPHAGOGASTRODUODENOSCOPY (EGD) WITH PEG PLACEMENT Referral ID Status Reason Start Date Expiration Date Visits Re quested Visits Authorized [id number] 1 1 Encounter Details Date Type Department Care Team (Latest Contact Info) Description 03/17/2024 2:38 PM CDT - 04/11/2024 12:55 PM CDT Hospital Encounter [address] [address] Aishwarya Barrera MD [address] [place] [address] [place] [phone] General Rehabilitation Discharge Disposition: [facility] Facility Social History Tobacco Use Types Packs/Day [...] place to sleep or slept in a senior living (including now)? No 01/24/2024 Education Answer Date [...] st Contact Info) Description 10/20/2024 8:00 AM AIRPORT UTILITY WORKER Office Visit [facility] - Family Medicine [address] [facility], [facility] [address] [place] [phone] Kiana Cole MD [address] [place] [address] 11/28/2024 9:00 AM AIRPORT UTILITY WORKER Office Visit [facility] - Neurology [address] [facility] [place] [address] Aline Finch MD [address] [facility] [place] [address] 02/10/2025 10:00 AM CDT Office Visit [facility] - Cardiology [address] [facility] [place] [phone] Curly Lay MD [address] [address] documented as of this encounter Visit Diagnoses Not on filedocumented in this encounter Additional Health Concerns Infection Onset Date Last Indicated Resolved Time COVID-19 Under Investigation 04/10/2024 04/10/2024 04/10/2024 2:48 PM CDT documented as of this encounter Care Teams Cooker Helper Relationship Specialty Start Date End Date None, Physician [facility] [place] [address] PCP - General 02/15/24 05/16/24 Sylvain Daniels MD [address] [place] [address] Family Medicine 02/15/24 documented as of this encounter
--- OUTSIDE RECORDS SUMMARY | 2024-10-11 19:41 | XMS_ITS | Encounter Summary ---
Author Organization [facility] Health Address [address] [facility] [address] [place] [address] Care Team Providers Care Embosser Apprentice Name Role Phone Sylvain Daniels MD Unavailable [phone] Sean Kyle MD Primary Care Provider [phone] Encounter Details Date Type Department Care Team (Latest Contact Info) Description 08/11/2024 Travel Social History Tobacco Use Types Packs/Day [...] Recorded Patient Health Questionnaire-2 Score 0 06/04/2024 [facility] - Occupational Stress [...] slept in a custodial (including now)? No 05/26/2024 Education Answer Date [...] st Contact Info) Description 10/20/2024 8:00 AM STAVE HEWER Office Visit [facility] - Family Medicine [address] [facility], [facility] [address] [place] [phone] Kiana Cole MD [address] [place] [address] 11/28/2024 9:00 AM STAVE HEWER Office Visit [facility] - Neurology [address] [facility] [place] [phone] Aline Finch MD [address] [facility] [place] [address] 02/10/2025 10:00 AM CDT Office Visit [facility] - Cardiology [address] [facility], [facility] [address] [place] [phone] Curly Lay MD [address] [facility] [address] [place] [address] documented as of this encounter Visit Diagnoses Not on filedocumented in this encounter Care Teams Embosser Apprentice Relationship Specialty Start Date End Date Sean Kyle MD [address] [place] [address] PCP - General Internal Medicine 08/05/24 09/15/24 Sylvain Daniels MD Family Medicine 02/15/24 documented as of this encounter
--- OUTSIDE RECORDS SUMMARY | 2024-10-11 19:41 | XMS_ITS | Encounter Summary ---
Author Organization [facility] Health Address [address] [facility] [place] [address] Care Team Providers Care Histology Teacher Name Role Phone Sylvain Daniels MD Unavailable [phone] Kiana Cole MD Primary Care Provider Sean Kyle MD Primary Care Provider [phone] Kiana Cole MD Primary Care Provider Reason for Visit * Reason Onset Date Comments Future Appointment 06/10/2024 Encounter Details Date Type Department Care Team (Late st Contact Info) Description 06/10/2024 Telephone [facility] - Cardiology [address] [facility], [place] [address] [place] [address] Andrae Norton MD [address] [facility] [place] [address] Future Appointment Social History Tobacco Use Types Packs/Day Years [...] Recorded Patient Health Questionnaire-2 Score 0 06/04/2024 [facility] - Occupational [...] encounter Miscellaneous Notes * Telephone Encounter - Christi Betancur - 06/10/2024 3:10 PM CDT Call out to patient to have him scheduled to come into clinic as a hospital f/u There was no answer at his home phone and a vcmail left I then called his mobile number and spoke with Jenn ROSADO) She stated pt is in a facility and due to be released next week She stated pt has issues with mobility and is wondering if his appt could be done over video I told her I would forward the question to the team and in the mean time she wanted to check her schedule and call me back with her availability She stated she is at work and unable to write a date at this time Nam/number given for follow up Monique * Telephone Encounter - Christi Betancur - 06/10/2024 3:09 PM CDT ----- Message from Andrae Norton MD sent at 06/04/2024 11:24 AM CDT ----- Regarding: Outpatient follow up Good morning, Can we please arrange for outpatient follow up for Mr. Vazquez in 2-3 weeks He will also need an event monitor sent with him. Can someone order the event monitor under my nameand I can sign the cosigned order. Thanks, KIM documented in this encounter Plan of Treatment Upcoming Encounters Date Type Department Care Team (Late st Contact Info) Description 10/20/2024 8:00 AM CHOCOLATE DIPPER Office Visit [facility] - Family Medicine [address] [facility], [facility] [address] [place] [phone] Kiana Cole MD [address] [place] [address] 11/28/2024 9:00 AM CHOCOLATE DIPPER Office Visit [facility] - Neurology [address] [facility] [place] [phone] Aline Finch MD [address] [facility] [place] [address] 02/10/2025 10:00 AM CDT Office Visit [facility] - Cardiology [address] [facility], [address] [phone] Curly Lay MD [address] [address] documented as of this encounter Visit Diagnoses Not on filedocumented in this encounter Care Teams Histology Teacher Relationship Specialty Start Date End Date Kiana Cole MD [address] [place] [address] PCP - General Internal Medicine 05/22/24 08/04/24 Sean Kyle MD [address] [place] [phone] PCP - General Internal Medicine 08/05/24 09/15/24 Kiana Cole MD [address] [place] [address] PCP - General Internal Medicine 09/16/24 Sylvain Daniels MD Family Medicine 02/15/24 documented as of this encounter
--- OUTSIDE RECORDS SUMMARY | 2024-10-11 19:41 | XMS_ITS | Encounter Summary ---
Author Organization [facility] Health Address [address] [facility] [place] [address] Care Team Providers Care Automobile Damage Field Appraiser Name Role Phone Sylvain Daniels MD Unavailable [phone] Sean Kyle MD Primary Care Provider [phone] Kiana Cole MD Primary Care Provider Reason for Referral * Evaluate & Treat (Routine) - Open Specialty Diagnoses / Procedures Referred By Jenna saleem Referred To Contact Occupational Therapy Diagnoses Cerebrovascular accident (CVA), unspecified mechanism (HCC) Farhat Enamorado MD [address] [place] [address] [facility] [address] [place] [address] Referral ID Status Reason Start Date Expiration Date V isits Requested Visits Authorized [id number] Open Specialty Services Required 08/29/2024 08/29/2025 1 1 CENTER TRAINER * Evaluate & Treat (Routine) - Open Specialty Diagnoses / Procedures Referred By Contmegan t Referred To Contact Physical Therapy Diagnoses Cerebrovascular accident (CVA), unspecified mechanism (HCC) Farhat Enamorado MD [address] [place] [address] [facility] [address] [place] [address] Referral ID Status Reason Start Date Expiration Date V isits Requested Visits Authorized [id number] Open Specialty Services Required 08/29/2024 08/29/2025 1 1 CENTER TRAINER * Consultation (Routine) - Open Specialty Diagnoses / Procedures Referred By Contac t Referred To Contact Diagnoses Cerebrovascular accident (CVA), unspecified mechanism (HCC) Farhat Enamorado MD [facility] [place] [address] [place] [address] [address] Referral ID Status Reason Start Date Expiration Date V isits Requested Visits Authorized [id number] Open Specialty Services Required 08/29/2024 08/29/2025 1 1 CENTER TRAINER Encounter Details Date Type Department Care Team (Latest Contact Info) Description 08/29/2024 9:00 AM CALL CENTER TRAINER Office Visit [facility] - Neurology [address] [facility], [place] [address] Farhat Enamorado MD [address] [place] [address] Cerebrovascular accident (CVA), unspecified mechanism (HCC) (Primary Dx) Social History Tobacco Use Types Packs/Day Years Used Date Smoking Tobacco: Former Cigars S tarted: 1998 Smokeless Tobacco: Never Tobacco Cessation:Counseling Given: Not Answered Comments:3-4 times / month-2020 says 1x/month Alcohol [...] Recorded Patient Health Questionnaire-2 Score 0 09/17/2024 [facility]at [facility] - Occupational Stress Questionnaire Answer Date Recorded [...] in a senior living (including now)? No 05/26/2024 Education Answer Date [...] Sign Reading Time Taken Comments Blood Pressure 117/79 08/29/2024 8:44 AM CALL CENTER TRAINER Pulse 71 08/29/2024 8:44 AM CALL CENTER TRAINER Temperature - - Respiratory Rate 10 08/29/2024 8:44 AM CALL CENTER TRAINER Oxygen Saturation - - Inhaled Oxygen Concentration - - Weight - - Height 193 cm (6' 4 ) 08/29/2024 8:44 AM CALL CENTER TRAINER Body Mass Index - - documented in this encounter Functional Status Functional [...] No 05/26/2024 documented as of this encounter Patient Instructions * Patient Instructions* Brian Mathews MD - 08/29/2024 8:47 AM CALL CENTER TRAINER Dear Yaya Vazquez Jr., Today you saw Dr. Enamorado at the [facility]. During today's visit we discussed that you have a severe narrowing in one of the vessels in your brain and also an aneurysm. The plan going forward is: -Please we encourage a healthy life style. -Continue physical therapy. -Continue taking Aspirin and clopidogrel. -We will sent a referral to Dr. Beltre at [facility]. We would highly recommend using My Chart to communicate with us and to have access to your medical records. Instructions on how to sign up for My Chart can be found at: [email or web address]. Select the [facility] and then select [facility]. If you have any questions regarding the plan discussed in clinic today please call Heather Diez [facility] office phone . Sincerely, Brian Mathews MD, Vascular & Interventional Neurology [facility] CENTER TRAINER documented in this encounter Progress Notes * Brian Mathews MD - 08/29/2024 9:57 AM CST Images from the original note were not included. Vascular Neurology Clinic Visit Note Date of Encounter: 08/29/2024 Chief Complaint: Follow up for basilar artery stenosis HPI: 63 yo right handed man stated that has made a significant improvement since he had an infarct on 01/2024. He lives with his sister and is bale to walk with a walker, his PEG tube was removed last month. His double vision has not improved and wears a eye patch all the time. He receives physical and occupation therapy at home. He complains of episodes of urinary incontinence and is frustrated that he can't control his bladder. He is taking aspirin and plavix and has not developed any side effect. Patient and family denies further episodes of unresponsiveness, his last episode was back on 05/2024 while he was admitted at [facility]. Review of Systems: A 10-pt ROS was performed. Pertinent negatives include no speech difficulty, no visual disturbances, no vertigo, no weakness, no sensory disturbance, and no difficulty with gait. All other systems were reviewed and negative. Vascular Neurology History. 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 He underwent angioplasty of basilar artery with improvement to 50% stenosis. - On 05/2024 He was admitted at [facility] for transit of episodes of decrease level of consciousness andunresponsiveness that were considered to be related to hypoperfusion from severe basilar stenosis. Allergies: Allergies Allergen Reactions Lisinopril Angioedema Lisinopril Other and Urticaria Hives Penicillins Other and Urticaria Hives Pcn [Penicillins] Swelling eyes swelled shut 50 years ago Penicillin V Rash Home Medications: Current Outpatient Medications Medication Sig acetaminophen (Tylenol) 325 MG tablet 2 (two) [...] by Enteral Tube route at bedtime busPIRone (Buspar) 5 MG tablet 1 (one) tablet by Per G Tube route 3 times daily Taking bid clopidogrel (plaVIX) 75 MG tablet 1 (one) tablet by Enteral Tube route once daily famotidine (Pepcid) 20 MG tablet 1 (one) tablet by Enteral Tube route 2 times daily folic acid (Folvite) 1 MG tablet 1 (one) tablet by Enteral Tube route once daily insulin glargine (Lantus/Semglee) 100 units/mL pen Inject 11 (eleven) Units subcutaneously at bedtime loratadine (Claritin) 10 MG tablet 1 (one) tablet by Per G Tube route once daily multiple vitamins with minerals tablet 1 (one) tablet by Enteral Tube route once daily QUEtiapine (SEROquel) 25 MG tablet Insert 1 (one) tablet into appropriate tube 2 times daily as needed (Patient not taking: Reported on 08/29/2024) senna-docusate (Senokot-S) 8.6-50 MG tablet 2 (two) tablets by Enteral Tube route 2 times daily (Patient taking differently: 2 (two) tablets by Enteral Tube route 2 times daily Using PRN) No current facility-administered medications for this visit. 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) 09/04/2018 Cough syncope 2018 Daytime sleepiness 08/05/2020 Essential hypertension 01/23/2018 HTN (hypertension) Hyperlipidemia 08/05/2020 Inadequate sleep hygiene 08/05/2020 Morbid obesity with BMI of 40.0-44.9, adult (HCC) 08/05/2020 Nocturia 08/05/2020 Obesity (BMI 30-39.9) 04/24/2012 Other chest pain 09/04/2018 S/P CABG x 3 01/24/2018 Snoring 08/05/2020 Stroke (HCC) Superficial postoperative wound infection 02/23/2018 sternum 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) Wears glasses 08/05/2020 Weight gain 08/05/2020 40# past 6-8 months-covid Wound of sternal region 02/23/2018 Family History: Family History Problem Relation Name Age of Onset Hypertension Father <65 CAD (Coronary Artery Disease) Father <65 Cancer - Ovarian Mother 60s None Known Sister Diabetes - Type 2 Sister Social History: Social History Socioeconomic History Marital status: Legally Spouse name: Not on file Number of children: 1 Years of education: 16 Highest education level: Bachelor's degree (e.g., BA, AB, BS) Occupational History 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 Tobacco Use Smoking status: Former Types: Cigars Start date: 1997 Smokeless tobacco: Never Tobacco comments: 3-4 times / month-2019 says 1x/month Vaping Use Vaping status: Never Used Substance and Sexual Activity Alcohol use: Not [...] of Health Financial Resource Strain: Low Risk (05/26/2024) Overall Financial Resource Strain (CARDIA) Difficulty of Paying Living Expenses: Not hard at all Food Insecurity: No Food Insecurity (05/26/2024) Hunger Vital Sign Worried About Running Out of Food in the Last Year: Never true Ran Out of Food in the Last Year: Never true Transportation Needs: No Transportation Needs (05/26/2024) PRAPARE - Transportation Lack of Transportation (Medical): No Lack of Transportation (Non-Medical): No Stress: No Stress Concern Present (05/26/2024) [place] [facility]ational Health - Occupational Stress Questionnaire Feeling of Stress : Not at all Housing Stability: Low Risk (05/26/2024) Housing Stability Vital Sign Unable to Pay for Housing in the Last Year: No Number of Places Lived in the Last Year: 2 Unstable Housing in the Last Year: No Objective: Vitals: 08/29/24 0844 BP: 117/79 Pulse: 71 Resp: 10 Height: 1.93 m (6' 4 ) Neurological Examination: - Mental status: Patient is alert and oriented to time, place, person - Speech: Moderate dysarthria. - Language:Fluent, with normal comprehension. 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 Horizontal diplopia. - Motor: Arms 4/5. Right thigh 3/5, leg 3/5, foot 2/5. Left thigh 4/5, eg 3/5, foot 2/5. - Coordination: Severe rubral tremor in right arm. - Gait: No evaluated. Vascular neurology objective data. CTA Brain showed sever stenosis of proximal basilar artery. -Coronal CTA brain showing an aneurysm in left supraclinoid left internal carotid artery. Brain MR: Flair sequence showing chronic infarct in midbrain Assessment: Patient has not had further episodes of decrease level of consciousness and responsiveness. I stillhave a high suspicion that his MATILDE could been affected due to transit hypoperfusion in setting of his basilar artery stenosis. We will continue maximal medical therapy for now. They would like to reestablish care with Dr. Beltre who was the neurointernationalist who performed basilar artery angioplasty back on 01/2024. 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 PHASES 2. This can also be addressed during his visit with Dr. Beltre. Plan: - Continue ASA and Plavix. - Continue lipitor. - Continue PT/OT. - We'll send a referral to neurology (Dr. Beltre) Brian Mathews MD, Vascular and Interventional Neurology Fellow CENTER TRAINER Associated attestation - Farhat Enamorado MD - 09/18/2024 8:24 AM CALL CENTER TRAINER I saw and examined the patient with the Fellow. I have verified all details of the Fellow's note and agree with the Fellow's documentation with additions and modifications as listed below. I personally participated in reviewing the chart, review of tests, obtaining and/or reviewing the separately obtained history, performing a medically necessary and appropriate examination and evaluation, counseling and educating the patient/family/caregiver, ordering medications, tests, or procedures, documenting in the patient record, and communicating results to the patient/family/caregiver. I carried out a separate interpretation of all neurovascular studies and discussed them with the patient in front of a screen with the relevant images displayed. The findings are suggestive of a higher than normal risk of cerebrovascular complications and disability. This was outlined in detail to the patient. Farhat Enamorado MD documented in this encounter Plan of Treatment Upcoming Encounters Date Type Department Care Team (Late st Contact Info) Description 10/20/2024 8:00 AM CALL CENTER TRAINER Office Visit [facility] - Family Medicine [address] [facility], [address] [address] Kiana Cole MD [address] [place], [place] [phone] 11/28/2024 9:00 AM CALL CENTER TRAINER Office Visit [facility] - Neurology [address] [facility], [place] [address] Aline Finch MD [address] [facility] [place] [address] 02/10/2025 10:00 AM CDT Office Visit [facility] - Cardiology [address] [facility], [address] [address] Curly Lay MD [address] [phone] Scheduled Referrals Name Type Priority Associated Diagnoses Order Schedule Ref to Neurology - [facility] Outpatient Referral Routine Cerebrovascular accident (CVA), unspecified mechanism (HCC) 1 Occurrences starting 08/29/2024 until 08/29/2025 Ref to Physical Therapy - [facility] PT Outpatient Referral Routine Cerebrovascular accident (CVA), unspecified mechanism (HCC) 1 Occurrences starting 08/29/2024 until 08/29/2025 Ref to Occupational Therapy - [facility] OT Outpatient Referral Routine Cerebrovascular accident (CVA), unspecified mechanism (HCC) 1 Occurrences starting 08/29/2024 until 08/29/2025 documented as of this encounter Visit Diagnoses Diagnosis Cerebrovascular accident (CVA), unspecified mechanism (HCC)- Primary documented in this encounter Care Teams Automobile Damage Field Appraiser Relationship Specialty Start Date End Date Sean Kyle MD [address] [place] [address] PCP - General Internal Medicine 08/05/24 09/15/24 Kiana Cole MD [address] [place] [address] PCP - General Internal Medicine 09/16/24 Sylvain Daniels MD Family Medicine 02/15/24 documented as of this encounter
--- OUTSIDE RECORDS SUMMARY | 2024-10-11 19:41 | XMS_ITS | Encounter Summary ---
Author Organization [facility] Health Address [address] [facility] [place] [address] Care Team Providers Care Gas Torch Brazier Name Role Phone Sylvain Daniels MD Unavailable [phone] Kiana Cole MD Primary Care Provider Reason for Visit * Reason Onset Date Comments Forms 07/10/2024 Order 07/10/2024 Encounter Details Date Type Department Care Team (Late st Contact Info) Description 07/10/2024 Nurse Triage [facility] - Family Medicine [address] [place] [address], [address] [place] [address] Kiana Cole MD [address] [place] [phone] Forms; Order Social History Tobacco Use Types Packs/Day Years [...] Recorded Patient Health Questionnaire-2 Score 0 06/04/2024 [facility] of Occupat ional Health - Occupational [...] slept in a long-term (including now)? No 05/26/2024 Education Answer Date [...] Telephone Encounter - Xin Tabares RN - 07/10/2024 11:28 AM CDT Attempted to call Anitra ramirez/ [employer] back, no answer. Line kept ringing and was attempting totransfer. Per Anitra below, she will be faxing physician order form to PCP office. * Telephone Encounter - Kiana Cole MD - 07/10/2024 11:19 AM CDT Tube feeding: Jevity 1.5 at 70 mL/hour provides 2520 james( 107 g protein, 362 g carbohydrate, 1277 mL free water +200 mL free water flush q.4 hours * Telephone Encounter - Xin Tabares RN - 07/10/2024 10:37 AM CDT Anitra ramirez/ [employer], a [employer], calling office to state that since patient's last ER visit at [facility] on 05/22, case liner within ER reached out to [facility] to supply patient with tube feeding and tube feeding supplies. Care Everywhere updated. Anitra states that the current issue they are having is that the order that was sent to them does not have the total calories patient needs for enteral nutrition on the order. In order to continue billing Medicare, they are needing PCP signature on physician order form. Anitra will be faxing thisphysician order form for PCP to review if able to sign. Fax # verified. -FYI. documented in this encounter Plan of Treatment Upcoming Encounters Date Type Department Care Team (Late st Contact Info) Description 10/20/2024 8:00 AM CHAIR INSPECTOR AND LEVELER Office Visit [facility] - Family Medicine [address] [facility], [facility] [address] [place] [phone] Kiana Cole MD [address] [place], [place] [phone] 11/28/2024 9:00 AM CHAIR INSPECTOR AND LEVELER Office Visit [facility] - Neurology [address] [facility], [place] [address] Aline Finch MD [address] [facility] [place] [address] 02/10/2025 10:00 AM CDT Office Visit [facility] - Cardiology [address] [facility], [address] [phone] Curly Lay MD [address] [address] documented as of this encounter Visit Diagnoses Not on filedocumented in this encounter Care Teams Gas Torch Brazier Relationship Specialty Start Date End Date Kiana Cole MD [address] [place] [address] PCP - General Internal Medicine 05/22/24 08/04/24 Sylvain Daniels MD Family Medicine 02/15/24 documented as of this encounter
--- OUTSIDE RECORDS SUMMARY | 2024-10-11 19:41 | XMS_ITS | Encounter Summary ---
Author Organization [facility] Health Address [address] [place] [address] Care Team Providers Care Properties Supervisor Name Role Phone None, Physician Primary Care Provider Sylvain Hopper MD Unavailable [phone] Reason for Visit * Reason Comments FEEDING TUBE PROBLEM BIBEMS from care fa cility. Pt non-verbal at baseline, granddaughter at bedside. Per family, pt accidentally pulled out his g-tube today. Encounter Details Date Type Department Care Team (Late st Contact Info) Description 04/21/2024 5:50 PM CDT - 04/22/2024 12:03 AM T Emergency [facility] EMERGENCY DEPARTMENT [address] [place] [phone] Frederic Palmer MD [address] [place] [address] [place] [phone] Gastrostomy tube dysfunction (HCC) (Primary Dx) Discharge Disposition: Home or Self Care Social History Tobacco Use Types Packs/Day Years Used Date Smoking Tobacco: Former Cigars S tarted: 1997 Smokeless Tobacco: Never Tobacco Cessation:Counseling Given: Not [...] in a long term (including now)? No 01/24/2024 Education Answer Date [...] Sign Reading Time Taken Comments Blood Pressure 155/98 04/22/2024 12:02 AM CDT Pulse 84 04/22/2024 12:02 AM CDT Temperature 36.6 ??C (97.9 ??F) 04/21/2024 4:49 PM CD T Respiratory Rate 18 04/22/2024 12:02 AM CDT Oxygen Saturation 98% 04/22/2024 12:02 AM CDT Inhaled Oxygen Concentration - - Weight - - Height - - Body Mass Index - - documented in [...] this encounter Discharge Instructions * Discharge Instructions* Luis Angel Osborn DO - 04/21/2024 9:41 PM CDT You were evaluated for a complaint of dislodged G tube. Our surgery team was able to replace the G tube at bedside and confirmed it with imaging. Please return to the ER for any new or worsening concerns. documented in this encounter Medications at Time [...] 02/16/2024 08/29/2024 documented as of this encounter Consult Notes * Karen Fajardo MD - 04/21/2024 8:44 PM CDTAssociated Order(s): IP CONSULT TO GENERAL SURGERY Acute Care Surgery Consult History and Physical Patient Name: Yaya Vazquez Jr. Age/Gender: 63 year old male : 1960 Date: 04/21/2024 Reason for Consult: G- tube dislodgement HPI: Yaya Vazquez Jr. is a 63 year old male with h/o CVA, now G-tube dependent who presentedtoday after G-tube got dislodged. Per report, pt had 20 Mongolian G tube placed 4 weeks ago. It got dislodged today around 5 pm. Patient is unable to answer many questions due to his prior stroke however when family arrived, they clarified that the G tube was placed in January after his stroke. Per records, patient had [facility] and replaced in March at [place]. PMH: See below PSH: See below Medications: see below for complete list. Allergies: Lisinopril, Penicillin SocHx: No current EtOH, tobacco or recreational drug use FMH: Noncontributory Past Medical History: Diagnosis Date Anemia 01/2018 Asthma (HCC) Chest congestion 08/05/2020 Confusional arousals 08/05/2020 Controlled type 2 diabetes mellitus without complication, without long-term current use of insulin ([facility]) 09/28/2011 Coronary artery disease involving [place] heart with angina pectoris ([facility]) 09/04/2018 Cough syncope 2018 Daytime sleepiness 08/05/2020 Essential hypertension 01/23/2018 HTN (hypertension) Hyperlipidemia 08/05/2020 Inadequate sleep hygiene 08/05/2020 Morbid obesity with BMI of 40.0-44.9, adult ([facility]) 08/05/2020 Nocturia 08/05/2020 Obesity (BMI 30-39.9) 04/24/2012 Other chest pain 09/04/2018 S/P CABG x 3 01/24/2018 Snoring 08/05/2020 Stroke ([facility]) Superficial postoperative wound infection 02/23/2018 sternum Type 2 diabetes mellitus with retinopathy without macular edema ([facility]) Wears glasses 08/05/2020 Weight gain 08/05/2020 40# past 6-8 months-covid Wound of sternal region 02/23/2018 Past Surgical History: Procedure Laterality Date ANGIOPLASTY COLONOSCOPY N/A 11/12/2020 N/A; COLONOSCOPY SCREEN Coronary Artery Bypass Graft N/A 01/24/2018 N/A; Coronary artery bypass graft x 3 ENDOSCOPY, UPPER N/A 01/30/2024 N/A; ESOPHAGOGASTRODUODENOSCOPY (EGD) WITH PEG PLACEMENT ENDOSCOPY, UPPER N/A 03/17/2024 N/A; ESOPHAGOGASTRODUODENOSCOPY (EGD) WITH PEG PLACEMENT Tonsillectomy Allergies Allergen Reactions Lisinopril Angioedema Lisinopril Other Hives Pcn [Penicillins] Swelling eyes swelled shut 50 years ago Pcn [Penicillins] Other Hives Penicillin V Rash Outpatient Medications: albuterol (Proventil;Ventolin) (2.5 MG/3ML) 0.083% nebulizer solution albuterol-ipratropium (Duo-Neb) 0.5-2.5 (3) MG/3ML nebulizer solution amLODIPine (Norvasc) 10 MG tablet aspirin (Aspirin) 81 MG chew tablet atorvastatin (Lipitor) 40 MG tablet clopidogrel (plaVIX) 75 MG tablet famotidine (Pepcid) 20 MG tablet folic acid (Folvite) 1 MG tablet heparin 5000 UNIT/ML injection insulin aspart (NovoLOG) pen insulin NPH pen modafinil (Provigil) 200 MG tablet multiple vitamins with minerals tablet senna-docusate (Senokot-S) 8.6-50 MG tablet sodium chloride 3 % nebulizer solution thiamine (Vitamin B-1) 100 MG tablet Inpatient Medications: Current Facility-Administered Medications Medication iopamidol (Isovue 300) 61 % contrast 30 mL sterile water (PF) injection sterile water for injection (preservative free) injection ADS Med Current Outpatient Medications Medication albuterol (Proventil;Ventolin) (2.5 MG/3ML) 0.083% nebulizer solution albuterol-ipratropium (Duo-Neb) 0.5-2.5 (3) MG/3ML nebulizer solution amLODIPine (Norvasc) 10 MG tablet aspirin (Aspirin) 81 MG chew tablet atorvastatin (Lipitor) 40 MG tablet clopidogrel (plaVIX) 75 MG tablet famotidine (Pepcid) 20 MG tablet folic acid (Folvite) 1 MG tablet heparin 5000 UNIT/ML injection insulin aspart (NovoLOG) pen insulin NPH pen modafinil (Provigil) 200 MG tablet multiple vitamins with minerals tablet senna-docusate (Senokot-S) 8.6-50 MG tablet sodium chloride 3 % nebulizer solution thiamine (Vitamin B-1) 100 MG tablet Social History Tobacco Use Smoking status: Former Types: Cigars Start date: 1997 Smokeless tobacco: Never Tobacco comments: 3-4 times / month-2019 says 1x/month Vaping Use Vaping Use: Never used Substance Use Topics Alcohol use: Not Currently Alcohol/week: 10.0 standard drinks of alcohol Types: 10 Standard drinks or equivalent per week Comment: 0-50+ a week Drug use: Not Currently Types: Marijuana Family History Problem Relation Name Age of Onset Hypertension Father <65 CAD (Coronary Artery Disease) Father <65 Cancer - Ovarian Mother 60s None Known Sister Diabetes - Type 2 Sister Problem List/Present on Admission: * No active hospital problems. * REVIEW OF SYSTEMS Patient with altered mental status secondary to prior CVA, unable to assess. PHYSICAL EXAM Vitals: 04/21/24 1649 BP: 145/77 Pulse: 87 Resp: 18 Temp: 97.9 ??F (36.6 ??C) SpO2: 98% Estimated body mass index is 29.84 kg/m?? as calculated from the following: Height as of 03/17/24: 1.829 m (6'). Weight as of 03/17/24: 99.8 kg (220 lb). Gen: NAD HEENT: AT/NC, EOMI, oropharynx clear CV: RRR Pulm: Nonlabored respirations Abd: Soft, NT/ND, abdomen with small wound to left upper quadrant consistent with prior G-tube placement site MSK: WWP, no c/c/e Neuro: Moving all extremities, no focal deficits Psych: Appropriate mood and affect Recent Labs: No new labs today Imaging: KUB A gastrostomy projects over the left upper quadrant. Small volume of contrast has been injected through the gastrostomy, the impression of gastric rugae are seen. No evidence of contrast leak on thislimited single AP view. Assessment and Plan: Yaya Vazquez Jr. is a 63 year old male presenting today after PEG tube was dislodged severalhours ago. He initially had a 20 Mong[place]ian tube, unable to replace with 20 or 18 Fr. - G-tube replaced with 14 Mongolian PEG tube, is at 6 mm at the skin, 7 at the flange. - Site confirmed with C-ray using IvoView. Patient seen with Chief Resident Dr. Shandra Birch. Karol Alfaro MD General Surgery Resident, PGY-1 Acute Care Surgery 04/21/2024 11:28 PM PEG placed 03/17 by GI team at [facility] Discussed with team Post replacement imaging reviewed Agree with assessment at plan as outlined This is a documentation only encounter. documented in this encounter ED Notes * Alyx Alexandra RN - 04/22/2024 12:00 AM CDT [facility] here to [facility]. Report given to ems crew. All questions answered at this time. Discharge instructions reviewed with pt's family members, all concerns addressed at this time. * Alyx Alexandra RN - 04/21/2024 10:52 PM CDT Transportation back to [facility] set up through walker ems. ETA 2300 * Frederic Palmer MD - 04/21/2024 6:19 PM CDT Resident Attestation I have performed an independent history and physical examination and discussed the patient's management with the resident. I confirm the residents findings, assessment and plan of care except where revised on this note. Interval History: Yaya Vazquez Jr. 63 year old male with a past medical history that includes a stroke is presenting to the ED c/o G-tube displacement. Per the patient's family, while a [facility] this morning the staff noticed patient's G-tube got displaced and called EMS. Family statesthe patient recently got the G-tubed place about a month ago after a stroke that was treated at [facility]. Per the family the patient's last feed through the tube was yesterday. The family states the patient has no further complaints or modifying factors. History is obtained from patient's family and is located in my HPI section. I also externally reviewed previous records that I had access to within [facility] and noted relevant statements in my HPI. ROS: Pertinent ROS as per HPI Past Medical History: Diagnosis Date Anemia 01/2018 Asthma ([facility]) Chest congestion 08/05/2020 Confusional arousals 08/05/2020 Controlled type 2 diabetes mellitus without complication, without long-term current use of insulin ([facility]) 09/28/2011 Coronary artery disease involving [place] heart with angina pectoris ([facility]) 09/04/2018 Cough syncope 2018 Daytime sleepiness 08/05/2020 Essential hypertension 01/23/2018 HTN (hypertension) Hyperlipidemia 08/05/2020 Inadequate sleep hygiene 08/05/2020 Morbid obesity with BMI of 40.0-44.9, adult ([facility]) 08/05/2020 Nocturia 08/05/2020 Obesity (BMI 30-39.9) 04/24/2012 Other chest pain 09/04/2018 S/P CABG x 3 01/24/2018 Snoring 08/05/2020 Stroke ([facility]) Superficial postoperative wound infection 02/23/2018 sternum Type 2 diabetes mellitus with retinopathy without macular edema ([facility]) Wears glasses 08/05/2020 Weight gain 08/05/2020 40# [...] (EGD) WITH PEG PLACEMENT Tonsillectomy Social History Tobacco Use Smoking status: Former Types: Cigars Start date: 1997 Smokeless tobacco: Never Tobacco comments: 3-4 times / month-2019 says 1x/month Vaping Use Vaping Use: Never used Substance Use Topics Alcohol use: Not Currently Alcohol/week: 10.0 standard drinks of alcohol Types: 10 Standard drinks or equivalent per week Comment: 0-50+ a week Drug use: Not Currently Types: Marijuana Allergies Allergen Reactions Lisinopril Angioedema Lisinopril Other Hives Pcn [Penicillins] Swelling eyes swelled shut 50 years ago Pcn [Penicillins] Other Hives Penicillin V Rash Current Facility-Administered Medications Medication iopamidol (Isovue 300) 61 % contrast 30 mL sterile water (PF) injection sterile water for injection (preservative free) injection ADS Med Current Outpatient Medications Medication Sig albuterol (Proventil;Ventolin) (2.5 MG/3ML) 0.083% nebulizer solution [...] tablet by Enteral Tube route once daily Exam: Vitals: 04/21/24 1649 BP: 145/77 Pulse: 87 Resp: 18 Temp: 97.9 ??F (36.6 ??C) SpO2: 98% Gen- no acute distress, awake, alert. Cv- Regular rate and rhythm, heart without murmur, normal pulses bilateral radial Resp- lung clear to auscultation bilaterally. Abd- Open G-tube site in LUQ, soft, nontender, normal bowel sounds MDM: DDx: G-tube displacement Plan: Replace G-tube, contact surgery if problems. Labs Reviewed - No data to display Lab interpret: XR ABDOMEN KUB (Results Pending) Rad interpret: By my review Gastrografin in the stomach ED COURSE: 7:40 PM: G-tube replacement attempted by resident. Replacement unsuccessful. 7:58 PM: Surgery consulted 8:21 PM: Surgery at beside 9:21 PM: Surgery has replaced tube with 14 mm tube. Will contact team again with final recommendations. pt counseled on findings and plan Consult: Yes Surgery Clinical Impression: 1. Gastrostomy tube dysfunction (HCC) Conclusion and Disposition: Acute problems: Refer to HPI Exacerbations of chronic problems: Refer to HPI Systemic issues: Refer to HPI Consultations in the ED: Refer to ED course Medication changes: Refer to ED course and disposition tab Follow up: Refer to ED course and disposition tab Disposition: Discharge Please see resident note for further details By signing my name below, I, Pricila Gunter, attest that this documentation has been prepared under the direction and in the presence of Dr. Palmer. Signed: Sunny Lancaster. I, Dr. Palmer, personally performed the services described in this documentation. All medical record entries made by the scribe were at my direction and in my presence. I have reviewed the chart andagree that the record reflects my personal performance and is accurate and complete. Electronically signed: Dr. Palmer Date: 04/21/24 Time: 6:19 PM * Luis Angel Osborn, - 04/21/2024 6:14 PM CDT [facility] EMERGENCY DEPARTMENT Yaya Vazquez Jr. is a 63 year old male being evaluated for a complaint of G tube displacement. Plan for replacement of G tube Pt presentation, course, and plan discussed with attending emergency medicine physician Dr. Palmer G tube unable to be passed at bedside. Given recent placement of the G tube will call surgery consultation who replaced the G tube at bedside with a 14 fr and confirmed by XR imaging. Impression: 1. Gastrostomy tube dysfunction (HCC) Disposition: Discharge * Aline Hairston, CEO & BOARD DIRECTOR-QUALITY CONTROL LAB TECH - 04/21/2024 4:54 PM CDT Medical Screening Exam 04/21/2024 4:54 PM Provider contact with the patient Yaya Vazquez Jr. CC: No chief complaint on file. Chief complaint narrative was entered by triage nurse, not by provider Provider in Triage HPI: Yaya Vazquez Jr. is a 63 year old male H as noted below who presents with accidental pulling out of gtube one hour ago. Pt has 15 cm 20 fr tube with him. Pt is nonverbal, here with granddaughter. Pt lives in care facility Limited Chart History: Past Medical History: Diagnosis Date Anemia 01/2018 Asthma (HCC) Chest congestion 08/05/2020 Confusional arousals 08/05/2020 Controlled type 2 diabetes mellitus without complication, without long-term current use of insulin ([facility]) 09/28/2011 Coronary artery disease involving [place] heart with angina pectoris ([facility]) 09/04/2018 Cough syncope 2017 Daytime sleepiness 08/05/2020 Essential hypertension 01/23/2018 HTN (hypertension) Hyperlipidemia 08/05/2020 Inadequate sleep hygiene 08/05/2020 Morbid obesity with BMI of 40.0-44.9, adult ([facility]) 08/05/2020 Nocturia 08/05/2020 Obesity (BMI 30-39.9) 04/24/2012 Other chest pain 09/04/2018 S/P CABG x 3 01/24/2018 Snoring 08/05/2020 Stroke ([facility]) Superficial postoperative wound infection 02/23/2018 sternum Type 2 diabetes mellitus with retinopathy without macular edema ([facility]) Wears glasses 08/05/2020 Weight gain 08/05/2020 40# past 6-8 months-covid Wound of sternal region 02/23/2018 Past Surgical History: Procedure Laterality Date ANGIOPLASTY COLONOSCOPY N/A 11/12/2020 N/A; COLONOSCOPY SCREEN Coronary Artery Bypass Graft N/A 01/24/2018 N/A; Coronary artery bypass graft x 3 ENDOSCOPY, UPPER N/A 01/30/2024 N/A; ESOPHAGOGASTRODUODENOSCOPY (EGD) WITH PEG PLACEMENT ENDOSCOPY, UPPER N/A 03/17/2024 N/A; ESOPHAGOGASTRODUODENOSCOPY (EGD) WITH PEG PLACEMENT Tonsillectomy No current facility-administered medications for this encounter. Current Outpatient Medications Medication Sig Dispense Refill [...] tablet by Enteral Tube route once daily Allergies Allergen Reactions Lisinopril Angioedema Lisinopril Other Hives Pcn [Penicillins] Swelling eyes swelled shut 50 years ago Pcn [Penicillins] Other Hives Penicillin V Rash PCP: Physician None (Above may be pending completion) Review of Systems: Primary System Noted in HPI. All other systems reviewed and are negative. Vital Signs reviewed in Triage BP 145/77 Pulse 87 Temp 97.9 ??F (36.6 ??C) Resp 18 SpO2 98% Pertinent Physical Findings: Constitutional: vitals as above, WDWN, groomed, nad, nontoxic Head: Head normocephalic, atraumatic Eyes: conjunctiva clear, deviation to left ENT: no rhinorrhea Neck: neck supple, Resp: respirations even and unlabored,masked Abd: obese, Gtube site unremarkable. Soft, nontender. Skin: warm, dry,color normal for ethnicity MSK: in recliner, Neuro: alert, left neglect, nonverbal Complete physical exam is limited due to patient sitting in up right position in chair MDM: I have reviewed all lab and imaging resulted ordered during this visit and available at the time ofthis note. Triage notes and available nursing notes reviewed. Previous medical record reviewed whenavailable. Management options include but not limited to: physical exam, laboratory testing, discussion with other providers. PLAN Diagnostic tests ordered: No orders of the defined types were placed in this encounter. MEDICATIONS FOR CURRENT ENCOUNTER: SCHEDULED MEDICATIONS: No current facility-administered medications for this encounter. CONTINUOUS MEDICATIONS: No current facility-administered medications for this encounter. PRN MEDICATIONS: No current facility-administered medications for this encounter. Clinical Impression: 1.g tube came out. Based on the Medical Screening Exam performed and diagnostic tests at this time, further evaluationis indicated and will be performed. Patient will be transferred to a main ED room when one is available and care will be transferred to ER provider. WILLIE Tobias documented in this encounter Plan of Treatment Upcoming Encounters Date Type Department Care Team (Late st Contact Info) Description 10/20/2024 8:00 AM CAREER DEVELOPMENT DIRECTOR Office Visit [facility] - Family Medicine [address] [facility] [address] [place] [phone] Kiana Cole MD [address] [place] [address] 11/28/2024 9:00 AM CAREER DEVELOPMENT DIRECTOR Office Visit [facility] - Neurology [address] [facility] [place] [phone] Aline Finch MD [address] [facility] [place] [address] 02/10/2025 10:00 AM CDT Office Visit [facility] - Cardiology [address] [facility] [facility] [address] [place] [address] Curly Lay MD [address] [facility] [address] [place] [address] documented as of this encounter Procedures Procedure Name Priority Date/Time Associated Diagnosis Comments XR ABDOMEN KUB STAT 04/21/2024 9:22 PM CDT Gastrostomy tube dysfunction (HCC) documented in this encounter Results * XR ABDOMEN KUB (04/21/2024 9:22 PM CDT) Anatomical Region Laterality Modality Abdomen Radiographic [...] observed. Report dictated by Marc Mei MD (global consumer sector vice president). Rafy Jules MD have personally reviewed and [...] observed. Report dictated by Marc Mei MD (global consumer sector vice president). Rafy Jules MD have personally reviewed and interpreted this examination/study. > Interpreting Provider: Rafy Arciniega MD on 04/22/2024 8:33 AM Frederic Palmer MD DIAGNOSTIC IMAGING O RDERABLES documented in this encounter Visit Diagnoses Diagnosis Gastrostomy tube dysfunction (HCC)- Primary Mechanical complication of gastrostomy documented in this encounter Administered Medications Inactive Administered Medications - up to 3 most recent administrations Medication Order MAR Action Action Date Dose Rate Site iopamidol (Isovue 300) 61 % contrast 30 mL 30 mL, Tube, CONTRAST ONCE, Starting on Sun04/21/24 at 2042, Until Sun04/22/24 at 0103, Call [phone] when at bedside. documented in this encounter Active and Recently Administered Medications Times are shown in CDT. Scheduled Medication Order 04/20/2024 04/21/2024 04/22/2024 iopamidol (Isovue 300) 61 % contrast 30 mL 30 mL, Tube, CONTRAST ONCE, Starting on Sun04/21/24 at 2042, Until Sun04/22/24 at 0103, Call [phone] when at bedside. sterile water (PF) injection Other, NOW, 1 dose, On Sun04/21/24 at 1845, Leave at bedside 1845 (Due) documented in this encounter Care Teams Properties Supervisor Relationship Specialty Start Date End Date None, Physician [address] [place] [address] PCP - General 02/15/24 05/16/24 Sylvain Daniels MD [facility] [place] [address] Family Medicine 02/15/24 documented as of this encounter
--- OUTSIDE RECORDS SUMMARY | 2024-10-11 19:41 | XMS_ITS | Encounter Summary ---
Author Organization [facility] Address [address] [place] [address] Care Team Providers Care Carpentry Specialist Name Role Phone Sylvain Daniels MD Unavailable [phone] Sean Kyle MD Primary Care Provider [phone] Encounter Details Date Type Department Care Team (Late st Contact Info) Description 08/12/2024 9:40 AM CDT Office Visit [facility] - Cardiology [address] [address] Curly Lay MD [id number] [place] [address] Coronary artery disease involving kaguyuk heart without angina pectoris, unspecified vessel or lesion type (Primary Dx); Hyperlipidemia, unspecified hyperlipidemia type; Cerebrovascular accident (CVA), unspecified mechanism (HCC); PVC (premature ventricular contraction); Essential hypertension Social History Tobacco Use Types Packs/Day Years [...] Recorded Patient Health Questionnaire-2 Score 0 06/04/2024 [facility] [place] of Occupat ional Health - Occupational Stress [...] place to sleep or slept in a care home (including now)? No 05/26/2024 Education Answer [...] Sign Reading Time Taken Comments Blood Pressure 120/70 08/12/2024 10:11 AM CDT Pulse 73 08/12/2024 10:11 AM CDT Temperature - - Respiratory Rate - - Oxygen Saturation 98% 08/12/2024 10:11 AM CDT Inhaled Oxygen Concentration - - Weight 120.2 kg (265 lb) 08/12/2024 10:11 AM CDT Height 193 cm (6' 4 ) 08/12/2024 10:11 AM CDT Body Mass Index 32.26 08/12/2024 10:11 AM CDT documented in this encounter Functional [...] this encounter Patient Instructions * Patient Instructions* Curly Lay MD - 08/12/2024 10:45 AM CDT Please obtain blood work at [facility]. I look forward to seeing you back in clinic in 3 months. documented in this encounter Progress Notes * Curly Lay MD - 08/12/2024 10:53 AM CDT [facility] CONSULTATION NOTE Yaya Vazquez Jr. Age: [age] year old Date of : 1960 Date: 08/12/2024 REASON FOR CONSULT: Post hospital follow up REFERRING PROVIDER: Sean Kyle MD CHIEF COMPLAINT: Doing ok DIAGNOSES: -Left thalamus CVA -Basilar artery stenosis, s/p PTCA -HTN -HLD -CAD s/p CABG x 2 2018 -DM -former smoker HISTORY: It was my pleasure to see Mr. Yaya Vazquez . in consultation at [facility]. He is a 63 year old years-old male with a history of above mentioned issues. Accompanied by sister Jenn and brother in law. Presents today for post hospitalization follow up. I saw him in [facility] 05/30/24. Had a syncopal episode for about 30 sec, prompting code stroke. Had returned to baseline during w/u. Thought was it might have been seizures. He lived by himself around that time, hence history difficult to elicit. Was discharged with Holter monitor, which I reviewed. Of 19 days of monitoring, there were 1% VE, 18 nonsustained VT, longest 13 sec. Symptomatically, patient denies chest pain, chest pressure, shortness of breath, dyspnea of exertion, orthopnea, paroxysmal nocturnal dyspnea, lower extremity swelling, palpitations, syncope, presyncopal symptoms. Lives with sister now. Has traveling PCP. Has home therapy. Sits in wheelchair. Can sit up in bed by himself. Walks a few steps with assist. ADL partially require assistance. Has not had the LOC events since discharge. PAST MEDICAL HISTORY: He has a past medical history of Anemia (01/2018), Asthma ([facility]), Chest congestion (08/05/2020), Confusional arousals (08/05/2020), Controlled type 2 diabetes mellitus without complication, without long-term current use of insulin ([facility]) (09/28/2011), Coronary artery disease involving kaguy[place] heart with angina pectoris ([facility]) (09/04/2018), Cough syncope (2017), Daytime sleepiness (08/05/2020), Essential hypertension (01/23/2018), HTN (hypertension), Hyperlipidemia (08/05/2020),Inadequate sleep hygiene (08/05/2020), Morbid obesity with BMI of 40.0-44.9, adult ([facility]) (08/05/2020), Nocturia (08/05/2020), Obesity (BMI 30-39.9) (04/24/2012), Other chest pain (09/04/2018), S/P CABG x 3 (01/24/2018), Snoring (08/05/2020), Stroke ([facility]), Superficial postoperative wound infection (02/23/2018), Type 2 diabetes mellitus with retinopathy without macular edema ([facility]), Wears glasses (08/05/2020), Weight gain (08/05/2020), and Wound of sternal region (02/23/2018). PAST SURGICAL HISTORY: His has a past surgical history that includes tonsillectomy; coronary arterybypass graft (N/A, 01/24/2018); colonoscopy (N/A, 11/12/2020); endoscopy, upper (N/A, 01/30/2024); angioplasty; and endoscopy, upper (N/A, 03/17/2024). FAMILY HISTORY: His family history includes CAD (Coronary Artery Disease) in his father; Cancer - Ovarian in his mother; Diabetes - Type 2 in his sister; Hypertension in his father; None Known in hissister. He He indicated that his mother is . He indicated that his father is . He indicated that both of his sisters are alive. SOCIAL HISTORY: He reports that he has quit smoking. His smoking use included cigars. He started smoking about 26 years ago. He has never used smokeless tobacco. He reports that he does not currentlyuse alcohol after a past usage of about 10.0 standard drinks of alcohol per week. He reports that he does not currently use drugs after having used the following drugs: Marijuana. ALLERGIES: Allergies Allergen Reactions Lisinopril Angioedema Lisinopril Other and Urticaria Hives Penicillins Other and Urticaria Hives Pcn [Penicillins] Swelling eyes swelled shut 50 years ago Penicillin V Rash HOME MEDICATIONS: Current Outpatient Medications Medication Sig Dispense Refill acetaminophen (Tylenol) 325 [...] by Enteral Tube route once daily insulin lispro (HumaLOG) 100 UNIT/ML vial Inject [...] Enteral Tube route 2 times daily thiamine (Vitamin B-1) 100 MG tablet 1 (one) tablet by Enteral Tube route once daily No current facility-administered medications for this visit. REVIEW OF SYSTEMS: All other systems negative except noted in HPI. PHYSICAL EXAM: BP 120/70 Pulse 73 Ht 1.93 m (6' 4 ) Wt 120.2 kg (265 lb) SpO2 98% Estimated body mass index is 32.26 kg/m?? as calculated from the following: Height as of this encounter: 1.93 m (6' 4 ). Weight as of this encounter: 120.2 kg (265 lb). General appearance: Well developed, well nourished. No pain, distress. Chronic ill appearing. HEENT: Normocephalic. Neck: The thyroid is not enlarged and is symmetric, without tenderness, masses or nodules. Chest: Clear to auscultation bilaterally. Heart: regular rate and rhythm. S1, S2. No murmur, clicks, rubs or gallops. There is no jugular venous distension noted. Normal carotid upstrokes without bruits. Abdomen: Soft, non-tender. Normal appearance. Bowel sounds normal. Extremities: No cyanosis, ulcers. No edema. Musculoskeletal: Normal range of motion. Pulses: All pulses 2+ and symmetric. Skin: Skin color, texture, turgor normal. No rashes or lesions. Neuro: Awake, alert, oriented. R hand tremor. DATA REVIEWED: LABS: CBC: Recent Labs Component Name 06/04/24 1130 06/03/24 0556 06/02/24 0513 01/11/18 1548 11/09/17 1521 WBC 7.7 7.8 7.5 - 8.0 HGB 10.9* 10.9* 11.4* - 14.1 HCT 34.3* 34.2* 36.4* - 42.9 MCV 82.9 82.0 84.1 - 83.5 PLT - - - - 319 - = values in this interval not displayed. BMP: Recent Labs Component Name 06/04/24 1130 06/03/24 0556 06/02/24 0513 01/24/18 1542 01/24/18 1345 01/24/18 1247 01/24/18 0953 01/11/18 1548 11/09/17 1521 11/19/15 0923 NA 135* 136 138 - - - - - 138 140 K - - - - 5.2 6.1* 4.6 - 4.0 4.4 CL 102 103 104 - - - - - 100 106 CO2 25 26 27 - - - - - 30 26 BUN 18 16 19 - - - - - 18 14 CREATININE 0.78 0.75 0.78 - - - - - 0.95 0.93 GLU - - - - - - - - 86 105* CALCIUM 9.6 9.6 9.5 - - - - - 9.7 9.2 - = values in this interval not displayed. Lipid Panel: Recent Labs Component Name 01/24/24 0443 LDLCALC 161* HDL 32* ECG: I independently interpreted. 05/29/24. NSR. PVC. NSST. 2-D ECHO: 06/03/24 Summary * Left ventricle is normal in [...] shunt. * No hemodynamically significant valve disease. I personally reviewed EKG, echo from our archives. Impression: Coronary artery disease involving kaguy[place] heart without angina pectoris, unspecified vessel or lesion type (primary encounter diagnosis) Hyperlipidemia, unspecified hyperlipidemia type Cerebrovascular accident (CVA), unspecified mechanism (HCC) PVC (premature ventricular contraction) Essential hypertension Plan: Hyperlipidemia LDL-C > 100 in 01/2024 when he was not on meds. Now that he's on atorva 40, will continue and recheck lipid profile. CAD (coronary artery disease) S/p CABG Minimal exertion, no anginal symptoms in this setting. Continue aspirin, statin, plavix, amlodipine Essential hypertension Controlled. Continue regimen. H/O: CVA (cerebrovascular accident) Secondary prevention with DAPT, statin. PVC (premature ventricular contraction) Nonsustained VT, asx. I offered bB for suppression. Sister concerned about polypharmacy which I echo. Observe. Patient Instructions Please obtain blood work at [facility]. I look forward to seeing you back in clinic in 3 months. DISPOSITION: We plan to see the patient back in clinic in 6 months' time, or sooner if issues arise. Thank you for your consultation and please do not hesitate to contact us with any question or concern. I appreciate the opportunity to participate in the care of your patients and look forward to being of service in the future as well. Curly Lay MD, PhD Tapemansupervisor lens generating Interventional Cardiology Division of Cardiology [facility] Pager: [phone] documented in this encounter Plan of Treatment Upcoming Encounters Date Type Department Care Team (Late st Contact Info) Description 10/20/2024 8:00 AM COOK SUPERVISOR Office Visit [facility] Family Medicine [address], [address] [address] [place] [address] Kiana Cole MD [address] [place] [address] 11/28/2024 9:00 AM COOK SUPERVISOR Office Visit [facility] - Neurology [address] [facility] [place] [address] Aline Finch MD [address] [facility] [place] [address] 02/10/2025 10:00 AM CDT Office Visit [facility] - Cardiology [address] [facility] [facility] [address] [place] [id number] Curly Lay MD [address] [place] [address] Scheduled Orders Name Type Priority Associated Diagnoses Orde r Schedule LIPID PROFILE Lab Routine Hyperlipidemia, unspecified hyperlipidemia type Ordered: 08/12/2024 documented as of this encounter Visit Diagnoses Diagnosis Coronary artery disease involving kaguy[place] heart without angina pectoris, unspecified vessel or lesion type- Primary Hyperlipidemia, unspecified hyperlipidemia type Cerebrovascular accident (CVA), unspecified mechanism (HCC) PVC (premature ventricular contraction) Other premature beats Essential hypertension * Assessment & Plan Note - Curly Lay MD - 08/12/2024 11:02 AM CDT Associated Problem(s): PVC (premature ventricular contraction) Nonsustained VT, asx. I offered bB for suppression. Sister concerned about polypharmacy which I echo. Observe. * Assessment & Plan Note - Curly Lay MD - 08/12/2024 11:01 AM CDT Associated Problem(s): H/O: CVA (cerebrovascular accident) Secondary prevention with DAPT, statin. * Assessment & Plan Note - Curly Lay MD - 08/12/2024 11:01 AM CDT Associated Problem(s): Essential hypertension Controlled. Continue regimen. * Assessment & Plan Note - Curly Lya MD - 08/12/2024 11:01 AM CDT Associated Problem(s): CAD (coronary artery disease) S/p CABG Minimal exertion, no anginal symptoms in this setting. Continue aspirin, statin, plavix, amlodipine * Assessment & Plan Note - Curly Lay MD - 08/12/2024 11:00 AM CDT Associated Problem(s): Hyperlipidemia LDL-C > 100 in 01/2024 when he was not on meds. Now that he's on atorva 40, will continue and recheck lipid profile. documented in this encounter Care Teams Carpentry Specialist Relationship Specialty Start Date End Date Sean Kyle MD [address] [place] [id number] PCP - General Internal Medicine 08/05/24 09/15/24 Sylvain Daniels MD Family Medicine 02/15/24 documented as of this encounter
--- OUTSIDE RECORDS SUMMARY | 2024-10-11 19:41 | XMS_ITS | Encounter Summary ---
Author Organization [facility] Address [address] [facility] [place] [address] Care Team Providers Care Quartz Cutter Name Role Phone Sylvain Daniels MD Unavailable [phone] Kiana Cole MD Primary Care Provider Reason for Referral * Consultation (Routine) - Authorized Specialty Diagnoses / Procedures Referred By Jenna saleem Referred To Contact Diagnoses Type 2 diabetes mellitus without complication, with long-term current use of insulin (HCC) Kiana Cole MD [address] [place] [address] Referral ID Status Reason Start Date Expiration Date Visits Requested Visits Authorized [id number] Authorized Specialty Services Required 09/17/2024 09/17/2025 1 1 HT CONTROL LECTURER Reason for Visit * Reason Comments Follow-up FMLA Encounter Details Date Type Department Care Team (Latest Contact Info) Description 09/17/2024 8:00 AM WEIGHT CONTROL LECTURER Office Visit [facility] - Family Medicine [address] [phone] Kiana Cole MD [address] [place] [address] Cerebrovascular accident (CVA), unspecified mechanism (HCC) (Primary Dx); Coronary artery disease involving [place]uk heart without angina pectoris, unspecified vessel or lesion type; S/P CABG x 3; Essential hypertension; Type 2 diabetes mellitus without complication, with long-term current use of insulin (HCC); Mild persistent asthma without complication (HCC) Social History Tobacco Use Types Packs/Day [...] Recorded Patient Health Questionnaire-2 Score 0 09/17/2024 Kittitian Maxton of Occupat ional Health - Occupational Stress [...] place to sleep or slept in a mcc (including now)? No 05/26/2024 Education Answer Date [...] Comments Blood Pressure 124/83 09/17/2024 8:17 AM WEIGHT CONTROL LECTURER Pulse 101 09/17/2024 8:17 AM WEIGHT CONTROL LECTURER Temperature 35.8 ??C (96.5 ??F) 09/17/2024 8:17 AM CS T Respiratory Rate - - Oxygen Saturation 96% 09/17/2024 8:17 AM WEIGHT CONTROL LECTURER Inhaled Oxygen Concentration - - Weight 120.2 kg (265 lb) 09/17/2024 8:17 AM WEIGHT CONTROL LECTURER Height 193 cm (6' 4 ) 09/17/2024 8:17 AM WEIGHT CONTROL LECTURER Body Mass Index 32.26 09/17/2024 8:17 AM WEIGHT CONTROL LECTURER documented in this encounter Functional Status Functional [...] this encounter Patient Instructions * Patient Instructions* Kiana Cole MD - 09/17/2024 1:26 PM WEIGHT CONTROL LECTURER Continue current medication Schedule an appointment with child care leader Daughter who has power of medical decision declined influenza vaccination and Prevnar 20 today-but plans to reconsider to have it done at the pharmacy Patient will keep appointments with his specialists FMLA papers scanned in media HT CONTROL LECTURER documented in this encounter Progress Notes * Kiana Cole MD - 09/17/2024 1:13 PM CST Date: 09/17/2024 Pt Name: Yaya Vazquez JrAriel : 1960 AGE: [age] year old SEX: male CC: Follow-up (FMLA) History of Present Illness:63 year oldyear old,male presents to the office with 2 sisters(durable power of bankruptcy attorney for sister scanned in media) in a wheelchair transferring care from [facility] physician service to our office. Cerebrovascular accident-01/23/2024-neurology note -[facility] care from 08/29/2024 reviewed, in3 months patient plans to see at [facility] , peg tube was removed and patient tolerates diet, patient needs assistance with transferrin from bed to sitting or standing, patient uses whe elchair and occasionally walker with assistance of 1 person, patient needs help with hygiene, patient uses depends for urinary incontinence, daughter requests FMLA papers for herself to help in patient's care(form filled out and scanned in media), patient on aspirin 81 mg daily and clopidogrel 75 mg daily, no overt bleeding complications. Coronary artery disease status post CABG-patient on aspirin and clopidogrel, atorvastatin 40 mg daily, no chest pains, cardiology note from 08/12/2024 reviewed. Diabetes mellitus type 2-since stroke patient lost large amount of weight and requirements for insulin decreased currently patient on Lantus 11 units q.h.s., hemoglobin A1c 6.2 point of care from today. BMI 32.2 Hypertension-controlled in the office and at home as per daughter, patient compliant with amlodipine 10 mg daily, no dizziness, no pretibial edema, no chest pain, no palpitations Allergies Allergen Reactions Lisinopril Angioedema Lisinopril Other and Urticaria Hives Penicillins Other and Urticaria Hives Pcn [Penicillins] Swelling eyes swelled shut 50 years ago Penicillin V Rash Patient Active Problem List: CAD (coronary artery disease) Essential hypertension S/P CABG x 3 Other chest pain Controlled type 2 diabetes mellitus without complication, without long-term current use of insulin ([facility]) Asthma (HCC) Hyperlipidemia Nocturia Weight gain Acute hypoxemic respiratory failure (HCC) Altered mental status, unspecified altered mental status type Hypoxia Staphylococcus aureus infection Cerebrovascular accident (HCC) Dysphagia following cerebral infarction Impaired cognition Problem with highly complex treatment regime Cerebrovascular accident (CVA), unspecified mechanism ([facility]) H/O: CVA (cerebrovascular accident) Seizure-like activity ([facility]) Basilar artery stenosis PVC (premature ventricular contraction) Outpatient Medications Prior to Visit Medication Sig [...] route 2 times daily Using PRN) No facility-administered medications prior to visit. Past Medical History: Diagnosis Date Anemia 01/2018 Asthma ([facility]) Chest congestion 08/05/2020 Confusional arousals 08/05/2020 Controlled type 2 diabetes mellitus without complication, without long-term current use of insulin ([facility]) 09/28/2011 Coronary artery disease involving [place]uk heart with angina pectoris ([facility]) 09/04/2018 Cough syncope 2018 Daytime sleepiness 08/05/2020 Essential hypertension 01/23/2018 HTN (hypertension) Hyperlipidemia 08/05/2020 Inadequate sleep hygiene 08/05/2020 Morbid obesity with BMI of 40.0-44.9, adult ([facility]) 08/05/2020 Nocturia 08/05/2020 Obesity (BMI 30-39.9) 04/24/2012 Other chest pain 09/04/2018 S/P CABG x 3 01/24/2018 Snoring 08/05/2020 Stroke ([facility]) Superficial postoperative wound infection 02/23/2018 sternum Type 2 diabetes mellitus with retinopathy without macular edema ([facility]) Wears glasses 08/05/2020 Weight gain 08/05/2020 [...] (e.g., BA, AB, BS) Occupational History 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 PHYSICAL EXAM: BP 124/83 (BP Location: Left arm, Patient Position: Sitting, BP Cuff Size: Large adult) Pulse 101 Temp 96.5 ??F (35.8 ??C) (Temporal) Ht 1.93 m (6' 4 ) Wt 120.2 kg (265 lb) SpO2 96% BP 124/83 (BP Location: Left arm, Patient Position: Sitting, BP Cuff Size: Large adult) Pulse 101 Temp 96.5 ??F (35.8 ??C) (Temporal) Ht 1.93 m (6' 4 ) Wt 120.2 kg (265 lb) SpO2 96% BMI 32.26 kg/m?? General appearance: alert, cooperative, no distress, patient in wheelchair Neck: No carotid bruits Heart: regular rhythm, normal S1 and S2, without murmurs, rubs or gallops Lungs: breath sounds normal and symmetric; no rales or wheezes Extremities: no pretibial edema, feet : Dystrophic , elongated nails, no skin ulceration, decreasedmonofilament, +2 pulses on dorsalis pedis Results : Office Visit on 09/17/24 HEMOGLOBIN A1C - POINT OF CARE (AMB) [facility] Result Value Ref Range Hemoglobin A1c POCT 6.2 (Abnormal) 4.2 - 5.8 % QC Verified Yes Yes ASSESSMENT: ICD-10-CM 1. Cerebrovascular accident (CVA), unspecified mechanism ([facility]) I63.9 2. Coronary artery disease involving [place]uk heart without angina pectoris, unspecified vessel or lesion type I25.10 3. S/P CABG x 3 Z95.1 4. Essential hypertension I10 5. Type 2 diabetes mellitus without complication, with long-term current use of insulin ([facility]) E11.9HEMOGLOBIN A1C - POINT OF CARE (AMB) [facility] Z79.4 AMB REFERRAL TO PODIATRY 6. Mild persistent asthma without complication ([facility]) J45.30 PLAN: Orders Placed This Encounter AMB REFERRAL TO PODIATRY HEMOGLOBIN A1C - POINT OF CARE (AMB) [facility] albuterol-ipratropium (Duo-Neb) 0.5-2.5 (3) MG/3ML nebulizer solution amLODIPine (Norvasc) 10 MG tablet aspirin (Aspirin) 81 MG chew tablet atorvastatin (Lipitor) 40 MG tablet clopidogrel (plaVIX) 75 MG tablet famotidine (Pepcid) 20 MG tablet folic acid (Folvite) 1 MG tablet busPIRone (Buspar) 5 MG tablet insulin glargine (Lantus/Semglee) 100 units/mL pen loratadine (Claritin) 10 MG tablet Return in about 3 months (around 12/16/2024), or if symptoms worsen or fail to improve, for Hypertension, diabetes. Patient Instructions Continue current medication Schedule an appointment with child care leader Daughter who has power of medical decision declined influenza vaccination and Prevnar 20 today-but plans to reconsider to have it done at the pharmacy Patient will keep appointments with his specialists FMLA papers scanned in media Kiana Cole MD Disclaimer: This dictation was created using voice recognition software. I have made every reasonable attempt to avoid errors. Please note that there may be variance in spelling, grammar and syntax because of the voice recognition system and hardware. If there any concerns please contact Kiana Cole M.D.directly HT CONTROL LECTURER * Bienvenido Brooks MA - 09/17/2024 8:20 AM CST Images from the original note were not included. BENJI-7 {Vanishing tip- Click here to Update BENJI-7 then refresh note (Ctrl+F11) 09/17/2024 8:20 AM 05/22/2024 1:27 PM BENJI-7 Nervous? 0 0 Control worrying? 0 0 Worry too much? 0 0 Trouble relaxing? 0 0 Restless? 0 0 Irritable? 0 0 Afraid? 0 0 Total Score (0-4: Minimal; 5-9: Mild; 10-14: Moderate; 15 or greater: Severe) 0 0 PHQ 09/17/2024 8:20 AM 06/04/2024 7:15 AM Patient Health Questionnaire Little Interest? Not at all Not at all Feeling Down? Not at all Not at all Score PHQ-2 0 0 HT CONTROL LECTURER documented in this encounter Plan of Treatment Upcoming Encounters Date Type Department Care Team (Late st Contact Info) Description 10/20/2024 8:00 AM WEIGHT CONTROL LECTURER Office Visit [facility] - Family Medicine [address] [place] [address], [place] [address] Kiana Cole MD [address] [place] [id number] 11/28/2024 9:00 AM WEIGHT CONTROL LECTURER Office Visit [facility] - Neurology [address] [facility] [place] [phone] Aline Finch MD [address] [facility] [place] [address] 02/10/2025 10:00 AM CDT Office Visit [facility] - Cardiology [address] [facility] [place] [phone] Curly Lay MD [address] [facility] [address] [place] [address] Scheduled Referrals Name Type Priority Associated Diagnoses Order Schedule AMB REFERRAL TO PODIATRY Outpatient Referral Routine Type 2 diabetes mellitus without complication, with long-term current use of insulin (HCC) 1 Occurrences starting 09/17/2024 until 09/17/2025 documented as of this encounter Procedures Procedure Name Priority Date/Time Associated Diagnosis Comments HEMOGLOBIN A1C - POINT OF CARE (AMB) [facility] Routine 09/17/2024 9:38 AM WEIGHT CONTROL LECTURER Type 2 diabetes mellitus without complication, with long-term current use of insulin ([facility]) documented in this encounter Results * (ABNORMAL) HEMOGLOBIN A1C - POINT OF CARE (AMB) [facility] (09/17/2024 9:38 AM WEIGHT CONTROL LECTURER) Hemoglobin A1c POCT 6.2(A) 4.2 - 5.8 % QC Verified Yes Yes Blood BLOOD SPECIMEN / Unknown 09/17/2024 9:38 AM WEIGHT CONTROL LECTURER Kiana Cole MD LAB - POINT OF CARE ORDERABLES documented in this encounter Visit Diagnoses Diagnosis Cerebrovascular accident (CVA), unspecified mechanism (HCC)- Primary Coronary artery disease involving [place] heart without angina pectoris, unspecified vessel or lesion type S/P CABG x 3 Postsurgical aortocoronary bypass status Essential hypertension Type 2 diabetes mellitus without complication, with long-term current use of insulin (HCC) Mild persistent asthma without complication (HCC) Unspecified asthma documented in this encounter Care Teams Quartz Cutter Relationship Specialty Start Date End Date Kiana Cole MD [address] [place] [address] PCP - General Internal Medicine 09/16/24 Sylvain Daniels MD Family Medicine 02/15/24 documented as of this encounter
--- OUTSIDE RECORDS SUMMARY | 2024-10-11 19:42 | XMS_ITS | Encounter Summary ---
Author Organization [facility] Address [address] [place] [address] Care Team Providers Care Nutrition Coordinator Name Role Phone None, Physician Primary Care Provider Sylvain Hopper MD Unavailable [phone] Encounter Details Date Type Department Care Team (Late st Contact Info) Description 02/15/2024 6:19 PM CDT - 03/12/2024 6:35 PM CDT [facility] [address] [place] [address] Thea Castaneda MD [facility] [place] [address] Internal Medicine Discharge Disposition: Rehab:Inpatient Social History Tobacco Use [...] in a alf (including now)? No 01/24/2024 Sex and Gender Information Value Date Recorded [...] Enteral Tube route every morning 02/16/2024 06/04/2024 sodium chloride 3 % nebulizer solution Inhale 3 mL by mouth every 6 hours 02/15/2024 06/04/2024 thiamine (Vitamin B-1) 100 MG tablet 1 (one) tablet by Enteral Tube route once daily 02/16/2024 08/29/2024 documented as of this encounter Plan of Treatment Upcoming Encounters Date Type Department Care Team (Late st Contact Info) Description 10/20/2024 8:00 AM LOADING DOCK HELPER Office Visit [facility] - Family Medicine [address] [phone] Kiana Cole MD [address] [place], [place] [phone] 11/28/2024 9:00 AM LOADING DOCK HELPER Office Visit [facility] - Neurology [address] [facility], [place] [phone] Aline Finch MD [address] [facility] [place] [address] 02/10/2025 10:00 AM CDT Office Visit [facility] - Cardiology [id number] [place] [address] Curly Lay MD [id number] [place] [address] documented as of this encounter Procedures Procedure Name Priority Date/Time Associated Diagnosis Comments BLOOD GASES ART + COOX PANEL Routine 03/11/2024 4:54 PM CDT BLOOD GASES ART + COOX PANEL Routine 02/27/2024 10:31 AM CDT BLOOD GASES ART + COOX PANEL Routine 02/24/2024 8:51 AM CDT documented in this encounter Results * (ABNORMAL) BLOOD GASES ART + COOX PANEL (03/11/2024 4:54 PM CDT) pH Arterial 7.43 7.35 - 7.45 pH [...] Kevin's Test Positive 03/11/2024 4:57 PM CDT [facility] Sample Site Left RA 03/11/2024 4:57 PM CDT [facility] O2 Device Room Air 03/11/2024 4:57 PM CDT [facility] FI O2 21.0 % 03/11/2024 4:57 PM CDT [facility] P/F Ratio 329 03/11/2024 4:57 PM CDT [facility] Blood, arterial ARTERIAL BLOOD SPECIMEN / Unknown 03/11/2024 4:54 PM CDT 03/11/2024 4:54 PM CDT Thea Castaneda MD LAB - BLOOD GASES OR DERABLES [facility] [address] [employer] [address] [phone] * (ABNORMAL) BLOOD GASES ART + COOX PANEL (02/27/2024 10:31 AM CDT) pH Arterial 7.47(H) 7.35 - 7.45 pH 02/27/2024 10:34 AM CDT [facility]P [facility]ER[facility] pCO2 Arterial 45 35 - 45 mmHg 10:34 AM CDT [facility] RESP THERAPY pO2 Arterial 82 80 - 100 mmHg 02/27/2024 10:34 AM CDT [facility] RESP THERAPY HCO3 Arterial 32.8(H) 22.0 - 26.0 mmol/L 02/27/2024 10:34 AM CDT [facility] BE Arterial 8.2(H) -2.0 - 2.0 mmol/L 02/27/2024 10:34 AM CDT [facility] Oxyhemoglobin Arterial 97.0 % 02/27/2024 10:34 AM CDT [facility] RESP THERAPY Dexoyhemoglobin (HHB) % <1.0 % 02/27/2024 10:34 AM CDT [facility] RESP THERAPY O2 Content Arterial 14.3 Interpret within clinical context ml/dL 02/27/2024 10:34 AM CDT [facility] RESP THERAPY O2 Saturation Arterial 100 90 - 100 % 02/27/2024 10:34 AM CDT [facility] Methemoglobin <0.8 0.0 - 2.0 % 02/27/2024 10:34 AM CDT [facility] Carboxyhemoglobin 2.9(H) 0.0 - 2.0 % 2023 10:34 AM CDT [facility] Hemoglobin by COOX 10.4(L) 12.0 - 17.6 g/dL 02/27/2024 10:34 AM CDT [facility] Kevin's Test Positive 02/27/2024 10:34 AM CDT [facility] Sample Site Left RA 02/27/2024 10:34 AM CDT [facility] O2 Device Tracheal Collar 02/27/2024 10:34 AM CDT [facility] FI O2 30.0 % 02/27/2024 10:34 AM CDT [facility] P/F Ratio 273 02/27/2024 10:34 AM CDT [facility] Blood, arterial ARTERIAL BLOOD SPECIMEN / Unknown 02/27/2024 10:31 AM CDT 02/27/2024 10:31 AM CDT Alex Smalls MD LAB - BLOOD GAS ES ORDERABLES [facility] [address] [facility] [address] [phone] * (ABNORMAL) BLOOD GASES ART + COOX PANEL (02/24/2024 8:51 AM CDT) pH Arterial 7.51(H) 7.35 - 7.45 pH 02/24/2024 8:54 AM CDT [facility] pCO2 Arterial 44 35 - 45 mmHg 8:54 AM CDT [facility] pO2 Arterial 102(H) 80 - 100 mmHg 02/24/2024 8:54 AM CDT [facility] HCO3 Arterial 35.1(H) 22.0 - 26.0 mmol/L 02/24/2024 8:54 AM CDT [facility] BE Arterial 10.9(H) -2.0 - 2.0 mmol/L 02/24/2024 8:54 AM CDT [facility] Oxyhemoglobin Arterial 96.8 % 02/24/2024 8:54 AM CDT [facility] Dexoyhemoglobin (HHB) % <1.0 % 02/24/2024 8:54 AM CDT [facility] O2 Content Arterial 14.3 Interpret within clinical context ml/dL 02/24/2024 8:54 AM CDT [facility] O2 Saturation Arterial 99 90 - 100 % 02/24/2024 8:54 AM CDT [facility] Methemoglobin <0.8 0.0 - 2.0 % 02/24/2024 8:54 AM CDT [facility] Carboxyhemoglobin 1.6 0.0 - 2.0 % 2023 8:54 AM CDT [facility] Hemoglobin by COOX 10.4(L) 12.0 - 17.6 g/dL 02/24/2024 8:54 AM CDT [facility] Kevin's Test Positive 02/24/2024 8:54 AM CDT [facility] Sample Site Left RA 02/24/2024 8:54 AM CDT [facility] O2 Device Tracheal Collar 02/24/2024 8:54 AM CDT [facility] FI O2 28.0 % 02/24/2024 8:54 AM CDT [facility] P/F Ratio 364 02/24/2024 8:54 AM CDT [facility] Blood, arterial ARTERIAL BLOOD SPECIMEN / Unknown 02/24/2024 8:51 AM CDT 02/24/2024 8:51 AM CDT Alex Smalls MD LAB - BLOOD GAS ES ORDERABLES [facility] [address] [facility] [address] [phone] documented in this encounter Visit Diagnoses Not on filedocumented in this encounter Care Teams Nutrition Coordinator Relationship Specialty Start Date End Date None, Physician [address] [place] [address] PCP - General 02/15/24 05/16/24 Sylvain Daniels MD [address] [place] [address] Family Medicine 02/15/24 documented as of this encounter
--- OUTSIDE RECORDS SUMMARY | 2024-10-11 19:42 | XMS_ITS | Encounter Summary ---
Author Organization [facility] Address [address] [place] [address] Care Team Providers Care Medical Records Tech Name Role Phone None, Physician Primary Care Provider Sylvain Hopper MD Unavailable [phone] Encounter Details Date Type Department Care Team (Late st Contact Info) Description 02/15/2024 6:19 PM CDT - 03/12/2024 6:35 PM CDT Hospital Encounter [facility] [address] [place] [address] Thea Castaneda MD [facility] [place] [address] Manager Front Office Care Discharge Disposition: Rehab:Inpatient Social History Tobacco Use [...] place to sleep or slept in a fdc (including now)? 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 [place] [address] 02/10/2025 10:00 AM CDT Office Visit [facility] - Cardiology [id number] [place] [address] Curly Lay MD [id number] [place] [address] documented as of this encounter Procedures Procedure Name Priority Date/Time Associated Diagnosis Comments CBC W/O DIFFERENTIAL Routine 03/11/2024 4:00 AM CDT COMPREHENSIVE METABOLIC PANEL Routine 03/11/2024 4:00 AM CDT COMPREHENSIVE METABOLIC PANEL Routine 03/10/2024 1:09 PM CDT CBC W AUTO DIFFERENTIAL STAT 03/09/2024 9:54 AM CDT COMPREHENSIVE METABOLIC PANEL STAT 03/09/2024 9:54 AM CDT MAGNESIUM BLOOD STAT 03/09/2024 9:54 AM CDT BASIC METABOLIC PANEL (CALCIUM TOTAL) STAT 03/08/2024 1:01 PM CDT B-TYPE NATRIURETIC PEPTIDE STAT 03/08/2024 1:01 PM CDT CBC W AUTO DIFFERENTIAL Routine 03/04/2024 2:35 AM CDT XR ABDOMEN KUB STAT 03/03/2024 5:29 PM CDT COMPREHENSIVE METABOLIC PANEL Routine 03/03/2024 7:21 AM CDT XR CHEST 1VW PORTABLE Routine 02/27/2024 4:55 AM CDT CBC W/O DIFFERENTIAL Routine 02/27/2024 4:35 AM CDT COMPREHENSIVE METABOLIC PANEL Routine 02/27/2024 4:35 AM CDT URINE MICROSCOPIC ONLY REFLEX TO CULTURE Routine 02/26/2024 10:10 PM CDT URINALYSIS REFLEX MICROSCOPIC REFLEX CULTURE Routine 02/26/2024 10:10 PM CDT CULTURE URINE Routine 02/26/2024 10:10 PM CDT COMPREHENSIVE METABOLIC PANEL Routine 02/25/2024 6:36 AM CDT CBC W AUTO DIFFERENTIAL Routine 02/25/2024 3:47 AM CDT XR CHEST 1VW PORTABLE Routine 02/25/2024 1:02 AM CDT XR CHEST 1VW PORTABLE Routine 02/16/2024 2:47 PM CDT CBC W AUTO DIFFERENTIAL Routine 02/16/2024 4:50 AM CDT COMPREHENSIVE METABOLIC PANEL Routine 02/16/2024 4:50 AM CDT PREALBUMIN Routine 02/16/2024 4:50 AM CDT TSH Routine 02/16/2024 4:50 AM CDT documented in this encounter Results * (ABNORMAL) COMPREHENSIVE METABOLIC PANEL (03/11/2024 4:00 AM CDT) Glucose 167(H) 70 - 105 mg/dL 03/11/2024 4:24 AM CDT [facility] Sodium 135(L) 136 - 145 mmol/L 03/11/2024 4:24 AM CDT [facility] Potassium 4.3 3.5 - 5.1 mmol/L 03/11/2024 4:24 AM CDT [facility] Chloride 99 98 - 107 mmol/L 03/11/2024 4:24 AM CDT [facility] CO2 24 22 - 29 mmol/L 03/11/2024 4:24 AM CDT [facility] Calcium 9.6 8.4 - 10.4 mg/dL 03/11/2024 4:24 AM CDT [facility] Anion Gap 12 6 - 16 mmol/L 03/11/2024 4:24 AM CDT [facility] BUN 28(H) 7 - 26 mg/dL 03/11/2024 4:24 AM CDT [facility] Creatinine 0.95 0.72 - 1.25 mg/dL 03/11/2024 4:24 AM CDT [facility] Alkaline Phosphatase 69 40 - 150 U/L 03/11/2024 4:24 AM CDT [facility] ALT 18 0 - 55 U/L 03/11/2024 4:24 AM CDT [facility] AST 15 5 - 34 U/L 03/11/2024 4:24 AM CDT [facility] Protein Total 8.0 6.4 - 8.3 gm/dL 03/11/2024 4:24 AM CDT [facility] Albumin 3.0(L) 3.4 - 5.0 gm/dL 03/11/2024 4:24 AM CDT [facility] Bilirubin Total 0.3 0.2 - 1.2 mg/dL 03/11/2024 4:24 AM CDT [facility] eGFR by CKD-EPI 89(L) >=90 mL/min/1.7 3 m2 03/11/2024 4:24 AM CDT [facility] Blood BLOOD SPECIMEN / Unknown Venipuncture / Unknown 03/11/2024 4:00 AM CDT 03/11/2024 4:08 AM CDT Provider Unknown LAB - CHEMISTRY CHRISTIAN RAZO [facility] Organization Address City/State/ZIP Co de Phone Number [facility] [address] [place], [place] [phone] * (ABNORMAL) CBC W/O DIFFERENTIAL (03/11/2024 4:00 AM CDT) WBC 9.0 4.0 - 10.7 x10E9/L 03/11/2024 4:10 AM CDT [facility] RBC Count 3.64(L) 4.30 - 5.80 x10E12/L 03/11/2024 4:10 AM CDT [facility] Hemoglobin 10.6(L) 13.3 - 17.5 g/dL 03/11/2024 4:10 AM CDT [facility] Hematocrit 32.3(L) 38.7 - 51.1 % 03/11/2024 4:10 AM CDT [facility] MCV 88.7 80.0 - 98.0 fL 03/11/2024 4:10 AM CDT [facility] MCH 29.1 26.7 - 33.6 pg 03/11/2024 4:10 AM [facility] MCHC 32.8 31.7 - 36.3 g/dL 03/11/2024 4:10 AM [facility] RDW-CV 14.3 11.3 - 14.8 % 03/11/2024 4:10 AM [facility] Platelet Count 221 150 - 420 x10E9/L 03/11/2024 4:10 AM [facility] MPV 9.4 7.8 - 11.4 fL 03/11/2024 4:10 AM [facility] Blood BLOOD SPECIMEN / Unknown Venipuncture / Unknown 03/11/2024 4:00 AM CDT 03/11/2024 4:08 AM CDT Provider Unknown LAB - HEMATOLOGY ORD ERABLES [facility] [address] [place] [address] * (ABNORMAL) COMPREHENSIVE METABOLIC PANEL (03/10/2024 1:09 PM CDT) Glucose 160(H) 70 - 105 mg/dL 03/10/2024 1:37 PM [facility] Sodium 135(L) 136 - 145 mmol/L 03/10/2024 1:37 PM [facility] Potassium 4.6 3.5 - 5.1 mmol/L 03/10/2024 1:37 PM [facility] Chloride 100 98 - 107 mmol/L 03/10/2024 1:37 PM [facility] CO2 22 22 - 29 mmol/L 03/10/2024 1:37 PM [facility] Calcium 10.0 8.4 - 10.4 mg/dL 03/10/2024 1:37 PM [facility] Anion Gap 13 6 - 16 mmol/L 03/10/2024 1:37 PM CDT [facility] BUN 23 7 - 26 mg/dL 03/10/2024 1:37 PM CDT [facility] Creatinine 0.92 0.72 - 1.25 mg/dL 03/10/2024 1:37 PM CDT [facility] Alkaline Phosphatase 65 40 - 150 U/L 03/10/2024 1:37 PM CDT [facility] ALT 20 0 - 55 U/L 03/10/2024 1:37 PM CDT [facility] AST 16 5 - 34 U/L 03/10/2024 1:37 PM CDT [facility] Protein Total 8.7(H) 6.4 - 8.3 gm/dL 03/10/2024 1:37 PM CDT [facility] Albumin 3.2(L) 3.4 - 5.0 gm/dL 03/10/2024 1:37 PM CDT [facility] Bilirubin Total 0.3 0.2 - 1.2 mg/dL 03/10/2024 1:37 PM T [facility] eGFR by CKD-EPI >90 >=90 mL/min/1.7 3 m2 03/10/2024 1:37 PM CDT [facility] Blood BLOOD SPECIMEN / Unknown Venipuncture / Unknown 03/10/2024 1:09 PM CDT 03/10/2024 1:18 PM CDT Provider Unknown LAB - CHEMISTRY CHRISTIAN RAZO [facility] [address] [id number] * MAGNESIUM BLOOD (03/09/2024 9:54 AM CDT) Magnesium 1.6 1.6 - 2.6 mg/dL 03/09/2024 1:39 PM CDT [facility] Blood BLOOD SPECIMEN / Unknown Venipuncture / Unknown 03/09/2024 9:54 AM CDT 03/09/2024 1:15 PM CDT Thea Castaneda MD LAB - CHEMISTRY CHRISTIAN RAZO [facility] [address] [place] [address] * (ABNORMAL) COMPREHENSIVE METABOLIC PANEL (03/09/2024 9:54 AM CDT) Glucose 148(H) 70 - 105 mg/dL 03/09/2024 1:34 PM [facility] Sodium 136 136 - 145 mmol/L 03/09/2024 1:34 PM [facility] Potassium 4.0 3.5 - 5.1 mmol/L 03/09/2024 1:34 PM [facility] Chloride 102 98 - 107 mmol/L 03/09/2024 1:34 PM [facility] CO2 26 22 - 29 mmol/L 03/09/2024 1:34 PM [facility] Calcium 9.0 8.4 - 10.4 mg/dL 03/09/2024 1:34 PM [facility] Anion Gap 8 6 - 16 mmol/L 03/09/2024 1:34 PM [facility] BUN 21 7 - 26 mg/dL 03/09/2024 1:34 PM [facility] Creatinine 0.82 0.72 - 1.25 mg/dL 03/09/2024 1:34 PM [facility] Alkaline Phosphatase 65 40 - 150 U/L 03/09/2024 1:34 PM [facility] ALT 17 0 - 55 U/L 03/09/2024 1:34 PM [facility] AST 15 5 - 34 U/L 03/09/2024 1:34 PM [facility] Protein Total 7.7 6.4 - 8.3 gm/dL 03/09/2024 1:34 PM [facility] Albumin 2.9(L) 3.4 - 5.0 gm/dL 03/09/2024 1:34 PM [facility] Bilirubin Total 0.2 0.2 - 1.2 mg/dL 03/09/2024 1:34 PM [facility] eGFR by CKD-EPI >90 >=90 mL/min/1.7 3 m2 03/09/2024 1:34 PM [facility] Blood BLOOD SPECIMEN / Unknown 03/09/2024 9:54 AM CDT 03/09/2024 1:15 PM T Thea Castaneda MD LAB - CHEMISTRY CHRISTIAN RAZO [facility] Organization Address City/State/ZIP Co de Phone Number [facility] [address] [place] [address] * (ABNORMAL) CBC W AUTO DIFFERENTIAL (03/09/2024 9:54 AM CDT) WBC 7.9 4.0 - 10.7 x10E9/L 03/09/2024 1:18 PM CDT [facility] RBC Count 3.52(L) 4.30 - 5.80 x10E12/L 03/09/2024 1:18 PM CDT [facility] Hemoglobin 10.1(L) 13.3 - 17.5 g/dL 03/09/2024 1:18 PM CDT [facility] Hematocrit 30.8(L) 38.7 - 51.1 % 03/09/2024 1:18 PM CDT [facility] MCV 87.5 80.0 - 98.0 fL 03/09/2024 1:18 PM CDT [facility] MCH 28.7 26.7 - 33.6 pg 03/09/2024 1:18 PM CDT [facility] MCHC 32.8 31.7 - 36.3 g/dL 03/09/2024 1:18 PM CDT [facility] RDW-CV 14.3 11.3 - 14.8 % 03/09/2024 1:18 PM CDT [facility] Platelet Count 216 150 - 420 x10E9/L 03/09/2024 1:18 PM CDT [facility] MPV 9.6 7.8 - 11.4 fL 03/09/2024 1:18 PM CDT [facility] Neutrophil % 49.0 41.0 - 74.0 % 03/09/2024 1:18 PM CDT [facility] Lymphocyte % 38.9 17.0 - 47.0 % 03/09/2024 1:18 PM CDT [facility] Monocyte % 9.4 3.0 - 11.0 % 03/09/2024 1:18 PM CDT [facility] Eosinophil % 1.9 0.0 - 7.0 % 03/09/2024 1:18 PM CDT [facility] Basophil % 0.4 0.0 - 1.6 % 03/09/2024 1:18 PM CDT [facility] Immature Granulocytes % 0.4 0.0 - 1.0 % 03/09/2024 1:18 PM CDT [facility] Neutrophil Absolute 3.85 1.60 - 7.50 x10E9/L 03/09/2024 1:18 PM CDT [facility] Lymphocyte Absolute 3.06 1.00 - 4.40 x10E9/L 03/09/2024 1:18 PM CDT [facility] Monocyte Absolute 0.74 0.15 - 1.00 x10E9/L 03/09/2024 1:18 PM CDT [facility] Eosinophil Absolute 0.15 0.00 - 0.60 x10E9/L 03/09/2024 1:18 PM CDT [facility] Basophil Absolute 0.03 0.00 - 0.13 x10E9/L 03/09/2024 1:18 PM T [facility] Blood BLOOD SPECIMEN / Unknown 03/09/2024 9:54 AM CDT 03/09/2024 1:15 PM CDT Thea Castaneda MD LAB - HEMATOLOGY ORD ERABLES [facility] [address] [place] [address] * (ABNORMAL) BASIC METABOLIC PANEL (CALCIUM TOTAL) (03/08/2024 1:01 PM CDT) Glucose 138(H) 70 - 105 mg/dL 03/08/2024 1:35 PM CDT [facility] Sodium 136 136 - 145 mmol/L 03/08/2024 1:35 PM CDT [facility] Potassium 4.3 3.5 - 5.1 mmol/L 03/08/2024 1:35 PM CDT [facility] Chloride 99 98 - 107 mmol/L 03/08/2024 1:35 PM CDT [facility] CO2 28 22 - 29 mmol/L 03/08/2024 1:35 PM CDT [facility] Calcium 9.5 8.4 - 10.4 mg/dL 03/08/2024 1:35 PM CDT [facility] Anion Gap 9 6 - 16 mmol/L 03/08/2024 1:35 PM CDT [facility] BUN 24 7 - 26 mg/dL 03/08/2024 1:35 PM CDT [facility] Creatinine 0.92 0.72 - 1.25 mg/dL 03/08/2024 1:35 PM CDT [facility] eGFR by CKD-EPI >90 >=90 mL/min/1.7 3 m2 03/08/2024 1:35 PM CDT [facility] Blood BLOOD SPECIMEN / Unknown Venipuncture / Unknown 03/08/2024 1:01 PM CDT 03/08/2024 1:17 PM CDT Thea Castaneda MD LAB - CHEMISTRY ORDAnirudh RAZO Performing Organization Address [facility]/ZIP Co de Phone Number [facility] [address] [place] [address] * B-TYPE NATRIURETIC PEPTIDE (03/08/2024 1:01 PM CDT) BNP 18 <=100 pg/mL 03/08/2024 1:40 PM CDT [facility] Blood BLOOD SPECIMEN / Unknown Venipuncture / Unknown 03/08/2024 1:01 PM CDT 03/08/2024 1:17 PM CDT Thea Castaneda MD LAB - CHEMISTRY ORDAnirudh RAZO Performing Organization Address [facility]/ZIP Co de Phone Number [facility] [address] [place] [address] * (ABNORMAL) CBC W AUTO DIFFERENTIAL (03/04/2024 2:35 AM CDT) WBC 8.5 4.0 - 10.7 x10E9/L 03/04/2024 8:47 AM CDT [facility] RBC Count 3.71(L) 4.30 - 5.80 x10E12/L 03/04/2024 8:47 AM CDT [facility] Hemoglobin 10.7(L) 13.3 - 17.5 g/dL 03/04/2024 8:47 AM CDT [facility] Hematocrit 33.6(L) 38.7 - 51.1 % 03/04/2024 8:47 AM CDT [facility] MCV 90.6 80.0 - 98.0 fL 03/04/2024 8:47 AM CDT [facility] MCH 28.8 26.7 - 33.6 pg 03/04/2024 8:47 AM CDT [facility] MCHC 31.8 31.7 - 36.3 g/dL 03/04/2024 8:47 AM [facility] RDW-CV 14.4 11.3 - 14.8 % 03/04/2024 8:47 AM [facility] Platelet Count 214 150 - 420 x10E9/L 03/04/2024 8:47 AM [facility] MPV 10.3 7.8 - 11.4 fL 03/04/2024 8:47 AM [facility] Neutrophil % 47.8 41.0 - 74.0 % 03/04/2024 8:47 AM [facility] Lymphocyte % 37.5 17.0 - 47.0 % 03/04/2024 8:47 AM [facility] Monocyte % 11.4(H) 3.0 - 11.0 % 03/04/2024 8:47 AM [facility] Eosinophil % 2.8 0.0 - 7.0 % 03/04/2024 8:47 AM [facility] Basophil % 0.1 0.0 - 1.6 % 03/04/2024 8:47 AM [facility] Immature Granulocytes % 0.4 0.0 - 1.0 % 03/04/2024 8:47 AM [facility] Neutrophil Absolute 4.08 1.60 - 7.50 x10E9/L 03/04/2024 8:47 AM [facility] Lymphocyte Absolute 3.20 1.00 - 4.40 x10E9/L 03/04/2024 8:47 AM CDT [facility] Monocyte Absolute 0.97 0.15 - 1.00 x10E9/L 03/04/2024 8:47 AM [facility] Eosinophil Absolute 0.24 0.00 - 0.60 x10E9/L 03/04/2024 8:47 AM CDT [facility] Basophil Absolute 0.01 0.00 - 0.13 x10E9/L 03/04/2024 8:47 AM CDT [facility] Blood BLOOD SPECIMEN / Unknown Venipuncture / Unknown 03/04/2024 2:35 AM CDT 03/04/2024 8:35 AM CDT Provider Unknown LAB - HEMATOLOGY ORD ERABLES [facility] [address] [place] [address] * XR ABDOMEN KUB (03/03/2024 5:29 PM CDT) Anatomical Region Laterality Modality Abdomen Radiographic Love ging 03/03/2024 5:31 PM CDT Impressions 03/03/2024 5:32 PM CDT IMPRESSION: No radiographic evidence of acute intra-abdominal process. Intraluminal contrast in the stomach and proximal small bowel confirming appropriate gastrostomy tube placement and without extraluminal extravasation of contrast identified. > Interpreting Provider: Tim Drummond MD on 03/03/2024 5:32 PM Narrative 03/03/2024 5:32 PM CDT PROCEDURE: ??XR ABDOMEN KUB DATE/TIME OF EXAM: ??03/03/2024 5:30 PM CLINICAL INFORMATION: None relevant/not provided if blank. Indication: with gastrografin for G-tube placement verification Additional History: Gastrostomy tube placement COMPARISON: None. FINDINGS: Contrast injected through a gastrostomy tube with intraluminal contrast noted within the stomach and proximal small bowel. No extraluminal contrast identified. Nonspecific bowel gas pattern with no evidence of obstruction. No mass effect or pathologic calcifications. No acute osseous abnormalities. Procedure Note Tim Drummond MD - 03/03/2024 PROCEDURE: XR ABDOMEN KUB DATE/TIME OF EXAM: 03/03/2024 5:30 PM CLINICAL INFORMATION: None relevant/not provided if blank. Indication: with gastrografin for G-tube placement verification Additional History: Gastrostomy tube placement COMPARISON: None. FINDINGS: Contrast injected through a gastrostomy tube with intraluminal contrast noted within the stomach and proximal small bowel. No extraluminalcontrast identified. Nonspecific bowel gas pattern with no evidence of obstruction. No mass effect or pathologic calcifications. No acute osseous abnormalities. IMPRESSION: No radiographic evidence of acute intra-abdominal process. Intraluminal contrast in the stomach and proximal small bowel confirming appropriate gastrostomy tube placement and without extraluminal extravasation of contrast identified. > Interpreting Provider: Tim Drummond MD on 03/03/2024 5:32 PM Provider Unknown DIAGNOSTIC IMAGING O RDERABLES * (ABNORMAL) COMPREHENSIVE METABOLIC PANEL (03/03/2024 7:21 AM T) [facility] Glucose 170(H) 70 - 105 mg/dL 03/03/2024 10:12 AM [facility] Sodium 136 136 - 145 mmol/L 03/03/2024 10:12 AM [facility] Potassium 4.1 3.5 - 5.1 mmol/L 03/03/2024 10:12 AM [facility] Chloride 98 98 - 107 mmol/L 03/03/2024 10:12 AM [facility] CO2 26 22 - 29 mmol/L 03/03/2024 10:12 AM [facility] Calcium 9.7 8.4 - 10.4 mg/dL 03/03/2024 10:12 AM [facility] Anion Gap 12 6 - 16 mmol/L 03/03/2024 10:12 AM [facility] BUN 32(H) 7 - 26 mg/dL 03/03/2024 10:12 AM [facility] Creatinine 0.96 0.72 - 1.25 mg/dL 03/03/2024 10:12 AM [facility] Alkaline Phosphatase 76 40 - 150 U/L 03/03/2024 10:12 AM [facility] ALT 23 0 - 55 U/L 03/03/2024 10:12 AM [facility] AST 16 5 - 34 U/L 03/03/2024 10:12 AM [facility] Protein Total 8.4(H) 6.4 - 8.3 gm/dL 03/03/2024 10:12 AM [facility] Albumin 2.9(L) 3.4 - 5.0 gm/dL 03/03/2024 10:12 AM [facility] Bilirubin Total 0.2 0.2 - 1.2 mg/dL 03/03/2024 10:12 AM CDT [facility] eGFR by CKD-EPI 88(L) >=90 mL/min/1.7 3 m2 03/03/2024 10:12 AM CDT [facility] Blood BLOOD SPECIMEN / Unknown Venipuncture / Unknown 03/03/2024 7:21 AM CDT 03/03/2024 9:48 AM CDT Provider Unknown LAB - CHEMISTRY CHRISTIAN RAZO [facility] [address] [place] [address] * XR CHEST 1VW PORTABLE (02/27/2024 4:55 AM CDT) Anatomical Region Laterality Modality Chest Radiographic Love ging 02/27/2024 8:37 AM CDT Impressions 02/27/2024 8:38 AM CDT IMPRESSION: Nonstandard patient positioning. No definite interval change ?? No active disease. > Interpreting Provider: Hieu Sagastume MD on 02/27/2024 8:38 AM Narrative 02/27/2024 8:38 AM CDT PROCEDURE: ??XR CHEST 1VW PORTABLE DATE/TIME OF EXAM: ??02/27/2024 4:55 AM INDICATION: pcxr in am- resp failure, eval for decannulation COMPARISON: February 24 ADDITIONAL CLINICAL INFORMATION (if provided): Ordering Provider Reason For Exam: Findings: There is a tracheostomy tube in place. The patient is status post median sternotomy. The patient remains rotated to the right limiting detail. The heart is borderline enlarged. The aorta is normal in caliber. The lungs are clear. ??There is no confluent infiltrate or effusion. There is no pneumothorax. There is no mass or adenopathy.. Procedure Note Hieu Sagastume MD - 02/27/2024 PROCEDURE: XR CHEST 1VW PORTABLE DATE/TIME OF EXAM: 02/27/2024 4:55 AM INDICATION: pcxr in am- resp failure, eval for decannulation COMPARISON: May 13 ADDITIONAL CLINICAL INFORMATION (if provided): Ordering Provider Reason For Exam: Findings: There is a tracheostomy tube in place. The patient is status post median sternotomy. The patient remains rotated to the right limiting detail.The heart is borderline enlarged. The aorta is normal in caliber. The lungsare clear. There is no confluent infiltrate or effusion. There is no pneumothorax. There is no mass or adenopathy.. IMPRESSION: Nonstandard patient positioning. No definite interval change No active disease. > Interpreting Provider: Hieu Sagastume MD on 02/27/2024 8:38 AM Tessy Gonzalez Benjamín MANUFACTURING TEST ENGINEER-DRAGLINE ENGINEER DIAGNOSTIC IM AGING ORDERABLES * (ABNORMAL) COMPREHENSIVE METABOLIC PANEL (02/27/2024 4:35 AM CDT) Glucose 156(H) 70 - 105 mg/dL 02/27/2024 5:03 AM CDT [facility] Sodium 140 136 - 145 mmol/L 02/27/2024 5:03 AM CDT [facility] Potassium 4.3 3.5 - 5.1 mmol/L 02/27/2024 5:03 AM CDT [facility] Chloride 100 98 - 107 mmol/L 02/27/2024 5:03 AM [facility] CO2 31(H) 22 - 29 mmol/L 02/27/2024 5:03 AM CDT [facility] Calcium 10.1 8.4 - 10.4 mg/dL 02/27/2024 5:03 AM CDT [facility] Anion Gap 9 6 - 16 mmol/L 02/27/2024 5:03 AM T [facility] BUN 44(H) 7 - 26 mg/dL 02/27/2024 5:03 AM T [facility] Creatinine 1.06 0.72 - 1.25 mg/dL 02/27/2024 5:03 AM [facility] Alkaline Phosphatase 82 40 - 150 U/L 02/27/2024 5:03 AM T [facility] ALT 34 0 - 55 U/L 02/27/2024 5:03 AM CDT [facility] AST 20 5 - 34 U/L 02/27/2024 5:03 AM [facility] Protein Total 8.7(H) 6.4 - 8.3 gm/dL 02/27/2024 5:03 AM CDT [facility] Albumin 2.9(L) 3.4 - 5.0 gm/dL 02/27/2024 5:03 AM CDT [facility] Bilirubin Total 0.3 0.2 - 1.2 mg/dL 02/27/2024 5:03 AM CDT [facility] eGFR by CKD-EPI 78(L) >=90 mL/min/1.7 3 m2 02/27/2024 5:03 AM CDT [facility] Blood BLOOD SPECIMEN / Unknown Venipuncture / Unknown 02/27/2024 4:35 AM CDT 02/27/2024 4:42 AM CDT Provider Unknown LAB - CHEMISTRY CHRISTIAN RAZO [facility] [address] [place] [address] * (ABNORMAL) CBC W/O DIFFERENTIAL (02/27/2024 4:35 AM CDT) WBC 8.7 4.0 - 10.7 x10E9/L 02/27/2024 4:47 [facility] RBC Count 3.45(L) 4.30 - 5.80 x10E12/L 02/27/2024 4:47 [facility] Hemoglobin 9.9(L) 13.3 - 17.5 g/dL 02/27/2024 4:47 AM [facility] Hematocrit 31.8(L) 38.7 - 51.1 % 02/27/2024 4:47 [facility] MCV 92.2 80.0 - 98.0 fL 02/27/2024 4:47 AM CDT [facility] MCH 28.7 26.7 - 33.6 pg 02/27/2024 4:47 AM CDT [facility] MCHC 31.1(L) 31.7 - 36.3 g/dL 02/27/2024 4:47 AM [facility] RDW-CV 14.4 11.3 - 14.8 % 02/27/2024 4:47 AM [facility] Platelet Count 242 150 - 420 x10E9/L 02/27/2024 4:47 AM CDT [facility] MPV 9.4 7.8 - 11.4 fL 02/27/2024 4:47 AM CDT [facility] Blood BLOOD SPECIMEN / Unknown Venipuncture / Unknown 02/27/2024 4:35 AM CDT 02/27/2024 4:42 AM CDT Provider Unknown LAB - HEMATOLOGY ORD ERABLES [facility] [address] [facility] [place] [address] * (ABNORMAL) CULTURE URINE (02/26/2024 10:10 PM CDT) [facility] Culture Urine >100,000 CFU/mL Escherichia coli(A) VALERIA 02/28/2024 11:34 AM CDT [facility] Urine URINE SPECIMEN OBTAINED BY CLEAN CATCH PROCEDURE / Unknown 02/26/2024 10:10 PM CDT 02/26/2024 10:18 PM CDT Narrative [facility] - 02/28/2024 11:34 AM CDT [...] - MICROBIOLOGY O RDERABLES Performing Organization Address City/[facility]/ZIP Co de Phone Number [facility] [address] [place], [place] [id number] [place] [address] * (ABNORMAL) URINE MICROSCOPIC ONLY REFLEX TO CULTURE (02/26/2024 10:10 PM CDT) Reflex Status Culture to follow 02/26/2024 10:29 PM CDT [facility] RBC UA 51-100(A) 0 - 5 # /hpf 02/26/2024 10:29 PM CDT [facility] WBC UA >100(A) 0 - 5 # /hpf 02/26/2024 10:29 PM CDT [facility] Bacteria UA 3+(A) None Seen 02/26/2024 10:29 PM CDT [facility] Squamous Epithelial Cells 3-5 0 - 5 /hpf 02/26/2024 10:29 PM CDT [facility] Mucus UA 3+ /LPF 02/26/2024 10:29 PM CDT [facility] Urine URINE SPECIMEN OBTAINED BY CLEAN CATCH PROCEDURE / Unknown 02/26/2024 10:10 PM CDT 02/26/2024 10:18 PM CDT Narrative [facility] - 02/26/2024 10:29 PM CDT Provider Unknown LAB - URINALYSIS ORD ERABLES Performing Organization Address [facility]/ZIP Co de Phone Number [facility] [address] [place] [address] * (ABNORMAL) URINALYSIS REFLEX MICROSCOPIC REFLEX CULTURE (02/26/2024 10:10 PM CDT) Color UA Beckie(A) Straw, Yellow 02/26/2024 10:23 PM [facility] Clarity UA Cloudy(A) Clear 02/26/2024 10:23 PM [facility] Glucose UA Negative Negative 02/26/2024 10:23 PM [facility] Bilirubin UA Negative Negative 02/26/2024 10:23 PM [facility] Ketone UA Negative Negative 02/26/2024 10:23 PM [facility] Specific [place] UA 1.019 1.005 - 1.030 02/26/2024 10:23 PM [facility] Blood UA 1+(A) Negative 02/26/2024 10:23 PM [facility] pH UA 6.0 5.0 - 8.0 pH 02/26/2024 10:23 PM [facility] Protein UA 1+(A) Negative 02/26/2024 10:23 PM [facility] Urobilinogen UA 2.0(A) Negative mg/dL 02/26/2024 10:23 PM [facility] Nitrite UA Positive(A) Negative 02/26/2024 10:23 PM [facility] Leukocyte UA 3+(A) Negative 02/26/2024 10:23 PM [facility] Urine Microscopy Urine microscopy to follow 02/26/2024 10:23 PM [facility] Reflex Status Culture to follow 02/26/2024 10:23 PM [facility] Urine URINE SPECIMEN OBTAINED BY CLEAN CATCH PROCEDURE / Unknown 02/26/2024 10:10 PM CDT 02/26/2024 10:18 PM CDT Narrative [facility] - 02/26/2024 10:23 PM T Ascorbic Acid can cause false negative urine strip tests for blood, glucose, nitrite, and bilirubin. Provider Unknown LAB - URINALYSIS ORD ERABLES [facility] [address] [place] [id number] * (ABNORMAL) COMPREHENSIVE METABOLIC PANEL (02/25/2024 6:36 AM [facility]) [facility] Glucose 161(H) 70 - 105 mg/dL 02/25/2024 7:26 AM [facility] Sodium 139 136 - 145 mmol/L 02/25/2024 7:26 AM [facility] Potassium 4.2 3.5 - 5.1 mmol/L 02/25/2024 7:26 AM [facility] Chloride 99 98 - 107 mmol/L 02/25/2024 7:26 AM [facility] CO2 30(H) 22 - 29 mmol/L 02/25/2024 7:26 AM [facility] Calcium 10.1 8.4 - 10.4 mg/dL 02/25/2024 7:26 AM [facility] Anion Gap 10 6 - 16 mmol/L 02/25/2024 7:26 AM [facility] BUN 45(H) 7 - 26 mg/dL 02/25/2024 7:26 AM [facility] Creatinine 1.06 0.72 - 1.25 mg/dL 02/25/2024 7:26 AM [facility] Alkaline Phosphatase 89 40 - 150 U/L 02/25/2024 7:26 AM [facility] ALT 48 0 - 55 U/L 02/25/2024 7:26 AM [facility] AST 33 5 - 34 U/L 02/25/2024 7:26 AM [facility] Protein Total 9.0(H) 6.4 - 8.3 gm/dL 02/25/2024 7:26 AM [facility] Albumin 2.9(L) 3.4 - 5.0 gm/dL 02/25/2024 7:26 AM [facility] Bilirubin Total 0.3 0.2 - 1.2 mg/dL 02/25/2024 7:26 AM [facility] eGFR by CKD-EPI 78(L) >=90 mL/min/1.7 3 m2 02/25/2024 7:26 AM [facility] Blood BLOOD SPECIMEN / Unknown Venipuncture / Unknown 02/25/2024 6:36 AM T 02/25/2024 7:08 AM CDT Thea Castaneda MD LAB - CHEMISTRY CHRISTIAN RAZO [facility] Organization Address City/State/ZIP Co de Phone Number [facility] [address] [place] [address] * (ABNORMAL) CBC W AUTO DIFFERENTIAL (02/25/2024 3:47 AM CDT) WBC 8.6 4.0 - 10.7 x10E9/L 02/25/2024 4:36 AM CDT [facility] RBC Count 3.68(L) 4.30 - 5.80 x10E12/L 02/25/2024 4:36 AM CDT [facility] Hemoglobin 10.6(L) 13.3 - 17.5 g/dL 02/25/2024 4:36 AM CDT [facility] Hematocrit 33.0(L) 38.7 - 51.1 % 02/25/2024 4:36 AM CDT [facility] MCV 89.7 80.0 - 98.0 fL 02/25/2024 4:36 AM CDT [facility] MCH 28.8 26.7 - 33.6 pg 02/25/2024 4:36 AM CDT [facility] MCHC 32.1 31.7 - 36.3 g/dL 02/25/2024 4:36 AM CDT [facility] RDW-CV 14.2 11.3 - 14.8 % 02/25/2024 4:36 AM CDT [facility] Platelet Count 270 150 - 420 x10E9/L 02/25/2024 4:36 AM CDT [facility] MPV 9.8 7.8 - 11.4 fL 02/25/2024 4:36 AM CDT [facility] Neutrophil % 48.8 41.0 - 74.0 % 02/25/2024 4:36 AM CDT [facility] Lymphocyte % 37.5 17.0 - 47.0 % 02/25/2024 4:36 AM CDT [facility] Monocyte % 10.3 3.0 - 11.0 % 02/25/2024 4:36 AM CDT [facility] Eosinophil % 2.9 0.0 - 7.0 % 02/25/2024 4:36 AM CDT [facility] Basophil % 0.2 0.0 - 1.6 % 02/25/2024 4:36 AM CDT [facility] Immature Granulocytes % 0.3 0.0 - 1.0 % 02/25/2024 4:36 AM CDT [facility] Neutrophil Absolute 4.20 1.60 - 7.50 x10E9/L 02/25/2024 4:36 AM CDT [facility] Lymphocyte Absolute 3.23 1.00 - 4.40 x10E9/L 02/25/2024 4:36 AM CDT [facility] Monocyte Absolute 0.89 0.15 - 1.00 x10E9/L 02/25/2024 4:36 AM CDT [facility] Eosinophil Absolute 0.25 0.00 - 0.60 x10E9/L 02/25/2024 4:36 AM CDT [facility] Basophil Absolute 0.02 0.00 - 0.13 x10E9/L 02/25/2024 4:36 AM CDT [facility] Blood BLOOD SPECIMEN / Unknown Venipuncture / Unknown 02/25/2024 3:47 AM CDT 02/25/2024 4:24 AM CDT Raymond Aranda MD LAB - HEMATOLOGY ORD ERABLES Performing Organization Address City/State/[facility] Co de Phone Number [facility] [address] [place] [address] * XR CHEST 1VW PORTABLE (02/25/2024 1:02 AM CDT) Anatomical Region Laterality Modality Chest Radiographic Love ging 02/25/2024 10:0 1 AM CDT Impressions 02/25/2024 10:17 AM CDT IMPRESSION: Given the reduced sensitivity of the examination, no active disease. Tracheostomy projects in an appropriate position. > Interpreting Provider: Luis A Fine MD on 02/25/2024 10:17 AM Narrative 02/25/2024 10:17 AM CDT PROCEDURE: ??XR CHEST 1VW PORTABLE CLINICAL INFORMATION (none relevant/not provided if blank): Indication: resp failure Additional History ??Respiratory failure. RELEVANT COMPARISON: 02/16/24 FINDINGS: Monitoring leads obscure part of the patient. Frontal ??technique may decrease exam sensitivity. Patient is rotated resulting in nonstandard imaging views which may reduce exam sensitivity. Tracheostomy projects in an appropriate position. Mild Background pattern of generalized coarse reticular opacities likely reflects chronic lung changes ??. Otherwise, no pneumothorax, pleural effusion or consolidation in the visualized lung(s). Surgical changes of sternotomy and CABG noted. Enlargement of the cardiac silhouette is consistent with cardiomegaly and less likely pericardial effusion. Cardiomediastinal silhouette is stable from prior exam. Osseous degenerative changes noted. PA and lateral chest radiographs offer increased sensitivity if clinically able & indicated. Procedure Note Luis A Fine MD - 02/25/2024 PROCEDURE: XR CHEST 1VW PORTABLE CLINICAL INFORMATION (none relevant/not provided if blank): Indication: resp failure Additional History Respiratory failure. RELEVANT COMPARISON: 02/16/24 FINDINGS: Monitoring leads obscure part of the patient. Frontal technique may decrease exam sensitivity. Patient is rotated resulting in nonstandard imaging views which mayreduce exam sensitivity. Tracheostomy projects in an appropriate position. Mild Background pattern of generalized coarse reticular opacities likely reflects chronic lung changes . Otherwise, no pneumothorax, pleural effusion or consolidation in the visualized lung(s). Surgical changes of sternotomy and CABG noted. Enlargement of the cardiac silhouette is consistent with cardiomegalyand less likely pericardial effusion. Cardiomediastinal silhouette is stable from prior exam. Osseous degenerative changes noted. PA and lateral chest radiographs offer increased sensitivity ifclinically able & indicated. IMPRESSION: Given the reduced sensitivity of the examination, no active disease. Tracheostomy projects in an appropriate position. > Interpreting Provider: Luis A Fine MD on 02/25/2024 10:17 AM Raymond Aranda MD DIAGNOSTIC IMAGING O RDERABLES * XR CHEST 1VW PORTABLE (02/16/2024 2:47 PM CDT) Anatomical Region Laterality Modality Chest Radiographic Love ging 02/16/2024 3:30 PM CDT Impressions 02/16/2024 3:31 PM CDT IMPRESSION: No radiographic evidence of an acute cardiopulmonary process. > Interpreting Provider: Grupo Turner MD on 02/16/2024 3:31 PM Narrative 02/16/2024 3:31 PM CDT PROCEDURE: ??XR CHEST 1VW PORTABLE DATE/TIME OF EXAM: ??02/16/2024 2:47 PM CLINICAL INFORMATION: None relevant/not provided if blank. Indication: respiratory failure Additional History: COMPARISON: None. FINDINGS: Tracheostomy tube is present, around 4.5 cm above the johan. Cardiac silhouette is within normal limits. Lungs appear normally expanded. No consolidation, pneumothorax, or large pleural effusion. Procedure Note Grupo Turner MD - 02/16/2024 PROCEDURE: XR CHEST 1VW PORTABLE DATE/TIME OF EXAM: 02/16/2024 2:47 PM CLINICAL INFORMATION: None relevant/not provided if blank. Indication: respiratory failure Additional History: COMPARISON: None. FINDINGS: Tracheostomy tube is present, around 4.5 cm above the johan. Cardiac silhouette is within normal limits. Lungs appear normally expanded. No consolidation, pneumothorax, or large pleural effusion. IMPRESSION: No radiographic evidence of an acute cardiopulmonary process. > Interpreting Provider: Grupo Turner MD on 02/16/2024 3:31 PM Axel Dunham MD DIAGNOSTIC LOVE GING ORDERABLES * PREALBUMIN (02/16/2024 4:50 AM CDT) Prealbumin 21.0 16.0 - 42.0 mg/dL 02/16/2024 5:46 AM CDT [facility] Blood BLOOD SPECIMEN / Unknown 02/16/2024 4:50 AM CDT 02/16/2024 5:21 AM CDT Thea Castaneda MD LAB - CHEMISTRY CHRISTIAN RAZO [facility] [address] [place] [address] * TSH (02/16/2024 4:50 AM CDT) TSH 1.6844 0.35 - 4.94 uIU/mL 02/16/2024 6:09 AM CDT [facility] Blood BLOOD SPECIMEN / Unknown Venipuncture / Unknown 02/16/2024 4:50 AM CDT 02/16/2024 5:21 AM CDT Thea Castaneda MD LAB - CHEMISTRY CHRISTIAN RAZO [facility] [address] [place] [address] * (ABNORMAL) COMPREHENSIVE METABOLIC PANEL (02/16/2024 4:50 AM CDT) [facility] Glucose 171(H) 70 - 105 mg/dL 02/16/2024 5:47 AM CDT [facility] Sodium 135(L) 136 - 145 mmol/L 02/16/2024 5:47 AM CDT [facility] Potassium 3.8 3.5 - 5.1 mmol/L 02/16/2024 5:47 AM [facility] Chloride 97(L) 98 - 107 mmol/L 02/16/2024 5:47 AM [facility] CO2 26 22 - 29 mmol/L 02/16/2024 5:47 AM CDT [facility] Calcium 9.3 8.4 - 10.4 mg/dL 02/16/2024 5:47 AM [facility] Anion Gap 12 6 - 16 mmol/L 02/16/2024 5:47 AM CDT [facility] BUN 41(H) 7 - 26 mg/dL 02/16/2024 5:47 AM [facility] Creatinine 0.87 0.72 - 1.25 mg/dL 02/16/2024 5:47 AM [facility] Alkaline Phosphatase 105 40 - 150 U/L 02/16/2024 5:47 AM [facility] ALT 43 0 - 55 U/L 02/16/2024 5:47 AM [facility] AST 35(H) 5 - 34 U/L 02/16/2024 5:47 AM [facility] Protein Total 8.2 6.4 - 8.3 gm/dL 02/16/2024 5:47 AM CDT [facility] Albumin 2.5(L) 3.4 - 5.0 gm/dL 02/16/2024 5:47 AM [facility] Bilirubin Total 0.3 0.2 - 1.2 mg/dL 02/16/2024 5:47 AM CDT [facility] eGFR by CKD-EPI >90 >=90 mL/min/1.7 3 m2 02/16/2024 5:47 AM CDT [facility] Blood BLOOD SPECIMEN / Unknown Venipuncture / Unknown 02/16/2024 4:50 AM CDT 02/16/2024 5:21 AM CDT Thea Castaneda MD LAB - CHEMISTRY CHRISTIAN RAZO [facility] [address] [place] [address] * (ABNORMAL) CBC W AUTO DIFFERENTIAL (02/16/2024 4:50 AM CDT) WBC 8.4 4.0 - 10.7 x10E9/L 02/16/2024 5:25 AM [facility] RBC Count 3.39(L) 4.30 - 5.80 x10E12/L 02/16/2024 5:25 AM CDT [facility] Hemoglobin 9.9(L) 13.3 - 17.5 g/dL 02/16/2024 5:25 AM CDT [facility] Hematocrit 29.8(L) 38.7 - 51.1 % 02/16/2024 5:25 AM [facility] MCV 87.9 80.0 - 98.0 fL 02/16/2024 5:25 AM CDT [facility] MCH 29.2 26.7 - 33.6 pg 02/16/2024 5:25 AM CDT [facility] MCHC 33.2 31.7 - 36.3 g/dL 02/16/2024 5:25 AM CDT [facility] RDW-CV 14.5 11.3 - 14.8 % 02/16/2024 5:25 AM CDT [facility] Platelet Count 277 150 - 420 x10E9/L 02/16/2024 5:25 AM CDT [facility] MPV 9.9 7.8 - 11.4 fL 02/16/2024 5:25 AM CDT [facility] Neutrophil % 61.6 41.0 - 74.0 % 02/16/2024 5:25 AM CDT [facility] Lymphocyte % 24.9 17.0 - 47.0 % 02/16/2024 5:25 AM CDT [facility] Monocyte % 9.2 3.0 - 11.0 % 02/16/2024 5:25 AM CDT [facility] Eosinophil % 3.1 0.0 - 7.0 % 02/16/2024 5:25 AM CDT [facility] Basophil % 0.4 0.0 - 1.6 % 02/16/2024 5:25 AM CDT [facility] Immature Granulocytes % 0.8 0.0 - 1.0 % 02/16/2024 5:25 AM CDT [facility] Neutrophil Absolute 5.16 1.60 - 7.50 x10E9/L 02/16/2024 5:25 AM CDT [facility] Lymphocyte Absolute 2.08 1.00 - 4.40 x10E9/L 02/16/2024 5:25 AM CDT [facility] Monocyte Absolute 0.77 0.15 - 1.00 x10E9/L 02/16/2024 5:25 AM CDT [facility] Eosinophil Absolute 0.26 0.00 - 0.60 x10E9/L 02/16/2024 5:25 AM CDT [facility] Basophil Absolute 0.03 0.00 - 0.13 x10E9/L 02/16/2024 5:25 AM CDT [facility] Blood BLOOD SPECIMEN / Unknown Venipuncture / Unknown 02/16/2024 4:50 AM CDT 02/16/2024 5:21 AM CDT Thea Castaneda MD LAB - HEMATOLOGY ORD ERABLES [facility] [address] [place] [address] documented in this encounter Visit Diagnoses Not on filedocumented in this encounter Care Teams Medical Records Tech Relationship Specialty Start Date End Date None, Physician [address] [place] [address] PCP - General 02/15/24 05/16/24 Sylvain Daniels MD [address] [place] [address] Family Medicine 02/15/24 documented as of this encounter
--- OUTSIDE RECORDS SUMMARY | 2024-10-11 19:42 | XMS_ITS | Encounter Summary ---
Author Organization [facility] Address [address] [place] [address] Care Team Providers Care Utility Bill Complaints Investigator Name Role Phone None, Physician Primary Care Provider Sylvain Hopper MD Unavailable [phone] Encounter Details Date Type Department Care Team (Latest Contact Info) Description 03/12/2024 8:14 PM CDT - 03/17/2024 12:25 PM CDT Hospital Encounter [address] [address] Aishwarya Barrera MD [address] [place] [address] [place] [phone] General Rehabilitation Discharge Disposition: Inpatient Hospital Social History Tobacco Use Types Packs/Day Years [...] to sleep or slept in a senior care (including now)? No 01/24/2024 Education Answer Date [...] as of this encounter Consult Notes * Evelyn Newton RD/TG - 03/13/2024 1:18 PM CDTAssociated Order(s): IP CONSULT TO NUTRITIONAL SERV Consult received per tube feeding protocol. Pt at [facility]; tube feeding adjusted to run over 20 hours per day to allow for therapy. For more information, please see my note dated 03/13/2024 Thanks again, Evelyn Newton, ,RD,LD documented in this encounter Plan of Treatment Upcoming Encounters Date Type Department Care Team (Late st Contact Info) Description 10/20/2024 8:00 AM SPINDLE PLUMBER Office Visit [facility] - Family Medicine [address], [address] [phone] Kiana Cole MD [address] [place] [address] 11/28/2024 9:00 AM SPINDLE PLUMBER Office Visit [facility] - Neurology [address] [facility] [place] [address] Aline Finch MD [address] [facility] [place] [address] 02/10/2025 10:00 AM CDT Office Visit [facility] - Cardiology [address] [facility] [address] [place] [phone] Curly Lay MD [address] [facility] [address] [place] [address] documented as of this encounter Procedures Procedure Name Priority Date/Time Associated Diagnosis Comments [place] EGD FLEX TRANSORAL W PLCMT GTUBE PERC 03/17/2024 3:00 PM CDT documented in this encounter Visit Diagnoses Not on filedocumented in this encounter Care Teams Utility Bill Complaints Investigator Relationship Specialty Start Date End Date None, Physician [address] [place] [address] PCP - General 02/15/24 05/16/24 Sylvain Daniels MD [address] [place] [address] Family Medicine 02/15/24 documented as of this encounter
--- OUTSIDE RECORDS SUMMARY | 2024-10-11 19:43 | XMS_ITS | Encounter Summary ---
Author Organization [facility] Address [address] [place] [address] Care Team Providers Care Sand Hauler Name Role Phone Sylvain Daniels MD Primary Care Provider [phone] Encounter Details Date Type Department Care Team (Latest Contact Info) Description 02/06/2024 Travel Social History Tobacco Use Types Packs/Day [...] slept in a [facility] (including now)? No 01/24/2024 Education Answer Date [...] st Contact Info) Description 10/20/2024 8:00 AM PHY THERAPIST Office Visit [facility] - Family Medicine [address] [place] [phone] Kiana Cole MD [address] [place] [address] 11/28/2024 9:00 AM PHY THERAPIST Office Visit [facility] - Neurology [address] [facility], [place] [address] Aline Finch MD [address] [facility] [place] [address] 02/10/2025 10:00 AM CDT Office Visit [facility] - Cardiology [id number] [place] [phone] Curly Lay MD [id number] [place] [address] documented as of this encounter Visit Diagnoses Not on filedocumented in this encounter Care Teams Sand Hauler Relationship Specialty Start Date End Date Sylvain Daniels MD PCP - General Family Medicine 05/10/22 02/14/24 documented as of this encounter
--- OUTSIDE RECORDS SUMMARY | 2024-10-11 19:43 | XMS_ITS | Encounter Summary ---
Author Organization [facility] Address [address] [place] [address] Care Team Providers Care Industrial Training Specialist Name Role Phone Sylvain Daniels MD Primary Care Provider [phone] None, Physician Primary Care Provider Unavailabl e Sylvain Daniels MD Unavailable [phone] Reason for Visit * Reason Comments Altered mental status * Auth/Cert (Routine) Specialty Diagnoses / Procedures Referred By Jenna t Referred To Contact Referral ID Status Reason Start Date Expiration Date Visits Re quested Visits Authorized [id number] 1 1 Encounter Details Date Type Department Care Team (Latest Contact Info) Description 01/23/2024 10:27 AM CDT - 02/15/2024 5:49 PM CDT Hospital Encounter [facility] [address] [address] [place] [address] [place] [address] [place] [address] [place] [address] [place] [address] [place], [place] [address], [place] [address] [place] [address] [place] [address] [place] [id number] Neurology Discharge Disposition: Intermediate Acute Care Social History Tobacco Use Types Packs/Day [...] in a care home (including now)? No 01/24/2024 Education Answer Date [...] Sign Reading Time Taken Comments Blood Pressure 116/75 02/15/2024 2:00 PM CDT Pulse 92 02/15/2024 3:17 PM CDT Temperature 37.3 ??C (99.1 ??F) 02/15/2024 12:00 PM C DT Respiratory Rate 19 02/15/2024 3:17 PM CDT Oxygen Saturation 97% 02/15/2024 3:17 PM CDT Inhaled Oxygen Concentration 21% 02/15/2024 3 :17 PM CDT Weight 128 kg (282 lb 3 oz) 02/15/2024 12:01 AM CDT Height 193 cm (6' 4 ) 01/24/2024 9:28 AM CDT Body Mass Index 34.35 01/24/2024 9:28 AM CDT documented in this encounter Functional [...] 01/24/2024 documented as of this encounter Discharge Summaries * Andrea Zamorano MD - 02/15/2024 10:58 AM CDT Physician Discharge Summary Patient ID: Raza Vazquez [id number] 63 year old 1960 Admit date: 01/23/2024 Discharge date: 02/15/2024 Admitting Physician: Sherie Beltre MD Discharge Physician: Andrea Zamorano MD Admission Diagnoses: No admission diagnoses are documented for this encounter. Discharge Diagnoses: Brainstem strokes, basilar artery stenosis, acute hypoxemic respiratory failure Admission Condition: serious Discharged Condition: fair Hospital Course: Raaz Vazquez is a 63 yom with histdory of CAD s/p CABG, obesity, HTN, HLD, DM II who presented to the ICU after an acute ischemic stroke. 01/22: Presented to ED after being found down. MRI with brainstem infarcts. 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 Transferred to ICU. 01/23: Sedation weaned. Following simple commands?? 01/24: Extubated 01/26: Worsening encephalopathy. cEEG initiated. Started on keppra. 01/27: EEG read normal 01/28: Transferred from ICU level of care to stroke service 01/29: PEG placed by GI 01/30: OOB to chair 02/01: Worsening mental status, not clearing secretions. ICU re-consulted. Intubated. 02/02: cont on vent support 02/03: consent obtained for trach. Cont TF and sedation. 02/04: tracheostomy 02/06: MRI for consistently poor mental status 02/07: started to wake and follow commands this AM. 02/08: cont vent weaning attempts. 02/09: trach exchanged for XLT bivona air 02/10: cont breathing trials. Tolerated ASV 02/11: tolerated SBT at 16/5 while up in combilizer. 02/13: con't PSV trials. Mr. Vazquez initially presented on 01/22 after being found down at home. He was found to have multiple brainstem infarcts. Pt was taken to IVR where he was found to have basilar artery stenosis s/pangioplasty. Stenting was attempted, but aborted after dissection of the right distal vertebral artery. Pt was admitted to the ICU intubated. He was extubated on 01/24, but ultimately required reintubation on 02/01 due to inability to clear secretions. Trach was placed on 02/04; 1st exchange was done on 02/10 for biovona air XLT hyperflex. Pt's hospital course has been complicated by fluctuating mental status. He has CT's and MRI's which have shown evolution of his stroke and EEG's have been negative for seizures. He also was found to have a MSSA pneumonia and completed 7 days of abx for this. Currently pt is able to follow commands and answer yes/no questions. He is doing daily PSV trials. Consults: GI, Neurology Significant Diagnostic Studies: See hospital course Treatments: See hospital course Discharge Exam: GENERAL APPEARANCE: Acutely ill appearing EYE: extraocular eye movements intact HEENT: NCAT, MMM secretions improved. NECK: Supple Trach site CDI RESP: coarse to auscultation bilaterally. Referred vent sounds. CARDIO: Regular rate, rhythm without murmur. GI/AB: soft, nttp, normoactive bowel sounds SKIN: Normal to inspection. Warm, dry, supple, with no changes in moles or sores that will not heal. NEUROMUSC: withdraws to painful stimuli, moving left side purposefully, waking to verbal stimuli, smiling, answering yes/no questions. Moving right arm and more spontaneously. Disposition: LTACH Medications Current Discharge Medication List START taking these medications Instructions Authorizing Provider albuterol (2.5 MG/3ML) 0.083% nebulizer solution Commonly known as: Proventil;Ventolin Inhale 2.5 (two and one-half) mg by mouth every 4 hours as needed for Shortness of Breath or Wheezing Andrea Zamorano MD amLODIPine 10 MG tablet Commonly known as: Norvasc Start taking on: February 16, 2024 1 (one) tablet by Enteral Tube route once daily Andrea Zamorano MD aspirin 81 MG chew tablet Commonly known as: Aspirin Start taking on: February 16, 2024 1 (one) tablet by Enteral Tube route once daily Andrea Zamorano MD clopidogrel 75 MG tablet Commonly known as: plaVIX Start taking on: February 16, 2024 1 (one) tablet by Enteral Tube route once daily Andrea Zamorano MD famotidine 20 MG tablet Commonly known as: Pepcid 1 (one) tablet by Enteral Tube route 2 times daily Andrea Zamorano MD folic acid 1 MG tablet Commonly known as: Folvite Start taking on: February 16, 2024 1 (one) tablet by Enteral Tube route once daily Andrea Zamorano MD heparin 5000 UNIT/ML injection Inject 1 mL subcutaneously 2 times daily Andrea Zamorano MD insulin aspart pen Commonly known as: NovoLOG Inject 0 (zero) Units to 18 (eighteen) Units subcutaneously every 6 hours Andrea Zamorano MD insulin NPH pen Inject 15 (fifteen) Units subcutaneously every 12 hours Andrea Zamorano MD modafinil 200 MG tablet Commonly known as: Provigil Start taking on: February 16, 2024 1 (one) tablet by Enteral Tube route every morning Andrea Zamorano MD multiple vitamins with minerals tablet Start taking on: February 16, 2024 1 (one) tablet by Enteral Tube route once daily Andrea Zamorano MD senna-docusate 8.6-50 MG tablet Commonly known as: Senokot-S 2 (two) tablets by Enteral Tube route 2 times daily Andrea Zamorano MD sodium chloride 3 % nebulizer solution Inhale 3 mL by mouth every 6 hours Andrea Zamorano MD thiamine 100 MG tablet Commonly known as: Vitamin B-1 Start taking on: February 16, 2024 1 (one) tablet by Enteral Tube route once daily Andrea Zamorano MD CONTINUE taking these medications which have CHANGED Instructions Authorizing Provider atorvastatin 40 MG tablet What changed: ?? medication strength ?? how much to take ?? how to take this Commonly known as: Lipitor 1 (one) tablet by Enteral Tube route at bedtime Andrea Zamorano MD STOP taking these medications blood glucose test strip CPAP losartan 50 MG tablet Commonly known as: Cozaar metFORMIN 500 MG tablet Commonly known as: Glucophage One Touch Delica Lancets ONE TOUCH ULTRA MINI w/Device Kit sildenafil 20 MG tablet Commonly known as: Revatio Signed: Andrea Zamorano MD 02/15/2024, 10:58 AM documented in this encounter Medications at Time of Discharge Medication Sig Dispensed Refills Start Date End Date albuterol (Proventil;Ventolin) (2.5 MG/3ML) 0.083% nebulizer solution [...] Enteral Tube route at bedtime 02/15/2024 09/17/2024 clopidogrel (plaVIX) 75 MG tablet 1 [...] mL subcutaneously 2 times daily 02/15/2024 06/04/2024 insulin aspart (NovoLOG) pen Inject 0 (zero) Units to 18 (eighteen) Units subcutaneously every 6 hours 02/15/2024 06/04/2024 insulin NPH pen Inject 15 (fifteen) Units [...] as of this encounter Progress Notes * Christi Torres RCP - 02/15/2024 3:22 PM CDT 02/15/24 1517 Patient Verification Patient Identified: By Identification Arm Band;Verified Name;Verified Birthdate Trach Bivona Placement Date/Time: 02/05/24 0800 Person who placed: robbin Brand: Bivona Airway Device: Cuffed Cuff Type: Water (Bivona) Trach size: 8 MM Trach Status Secured;Open/Patent Current Trach size 8 Trach Site Assessment (S) Cleansed and Dried Trach Dressing Type Gauze Trach Dressing Status (S) Changed;Clean;Dry;Intact Trach Dressing Intervention (S) Changed Trach Inner Cannula Care No inner cannula Cuff pressure 8 cm H2O Document any leak(s) none Airway Emergency Supplies Available Extra Trach (same size);Extra Trach (size smaller);Obturator;Resuscitation Bag w/PEEP valve;Suction Device Verified Trach Handoff Report at bedside Yes- Report at bedside Airway Care/VAE Inline Suction Catheter? Inplace HOB between 30-45 degrees Yes Suctioned? Yes Suction Mode Trach Secretion Consistency Thick;Thin Secretion Color Clear;White Secretions Amount Small Hyperoxygenated prior to suctioning? Yes Mechanical Ventilation Mode VENT MODE APV/CMV $ O2 DEVICE Ventilator $ Medical Gases O2 % (FiO2) 21 % Vitals Pulse 92 SpO2 97 % ETCO2 (mmHg) 33 mmHg $ Continuous ETCO2 Continuous Ventilation Rate SET VENTILATION RATE (bpm) 15 bpm OBSERVED VENTILATION RATE (bpm) 15 bpm Insp Time 1.32 Insp Flow (L/Min) 37.7 l/Min Actual I:E Ratio 1:2 Volumes SET TIDAL VOLUME (mL) 520 ML EXHALED TIDAL VOLUME (ml) 491 ml Observed Minute Ventilation (L/m) 7.9 Liters/Minute Tubing Compensation (ATC) On Ventilator Pressures OBSERVED PEAK INSPIRATORY PRESSURE (cm H2O) 24 cm H2O Mean Airway Pressure (cm H2O) 13 cm H2O PEEP/CPAP 5 cm H20 Sensitivity Flow Trigger 3 Safety & Alarms Airway Emergency Supplies Available Bulb syringe/suction;Resuscitation Bag;Resuscitation Bag with PEEP Valve Humidity Source Active Humidity Humidity Temp (C) 37 Celsius H2O Bag 1/2 Humidifier alarm on and functional Yes Expiratory Filter In place Backup Mode Checked Yes Alarm Volume 10 High Pressure Alarm (cm H2O) 50 cm H2O Low Pressure alarm (cmH2O) 5 High Minute Ventilation 25 Low Minute Ventilation 3 High Tidal Volume 1000 Low Tidal Volume 200 ml High Resp Rate 40 Low Resp Rate 8 Apnea (secs) 20 secs High ETCO2 60 mmHg Low ETCO2 20 mmHg * Elina Chen OT - 02/15/2024 3:17 PM CDT Occupational Therapy Treatment Summary Chart reviewed for diagnosis and medical systems review. Nursing consented for OT. Explained purpose of OT and patient consented to participate in therapy. RECOMMENDATIONS/PLAN: Continue OT OT Discharge Recommendations: (LTACH) Recommended Transportation Method: Stretcher/Ambulance PPE worn by staff: gloves;mask - surgical AM-PAC Daily Activity score for this patient is Daily Activity Raw Score:: 10 Precautions: Falls, ventilator (RT present throughout OT/PT session for vent line mgmt), BUE soft wrist restraints, PEG SUBJECTIVE: Pt awake, able to give thumbs up. Psychosocial: Patient Behaviors: Calm;Cooperative Pt's goal for therapy: Not stated OBJECTIVE: Pain Assessment: Pain Location #1 Pain Scale/Observation: Numeric (0-10) Pain Rating Score #1: 0 Cognition: Orientation Level: Unable to Obtain Cognition: Follows one step commands Functional Mobility: Bed Mobility: Supine to Sit: Maximum Assistance;X 2 Sit to Supine: Total Assistance;X 2 Transfers: Sit to Stand: Maximum Assistance;X 2;Moderate Assistance Stand to Sit: Maximum Assistance;Moderate Assistance;X 2 ADL Tasks: Feeding: Total Assistance Oral Facial Hygiene: Stand By Assist Bathing: Maximal Assistance Upper Body Dressing: Maximal Assistance Lower Body Dressing: Total Assistance Toileting: Total Assistance Activity Tolerance: Activity Tolerance: Requires seated rest breaks Oxygen Therapy: $ O2 DEVICE: Ventilator $ Vital signs: BP supine 139/89 BP supine 135/86 ASSESSMENT: Pt tolerated OT well. 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 Max A x 2 supine>sit EOB. Initiates trying to scratch nose w/ R hand but needs assist under R elbow to achieve. Performed 5 sit>stands w/ travis steady (could stand for ~10 second durations w/ mod A x 2) before sitting back down on travis steady paddles. Needs cues to lift head up. Tends to lean towards R side needing cues for upright posture. Pt returned to supine total A x 2, repositioned at [facility], turned towards L side w/ heel protector boots on. Call light and phone in reach. All lines, monitors, IV's, equipment in place and intact pre and post visit. RN notified of patient's performance/location end of session. Educated patient/family in Role of OT, POC, ADLs/functional mobility, safety/fall precautions Please refer to the Filed Flowsheet OT Treatment for further details. Refer to care plan for goals. If this is the last Occupational Therapy visit, this serves as the discharge summary. SHELLY Antoine/Boris [phone] * Macho Solis - 02/15/2024 3:05 PM CDT Physical Therapy ICU Treatment Chart reviewed for diagnosis and medical systems review. RN consented for PT. Explained purpose of PT and patient consented to participate in therapy. ?? A??63 year old??male??was admitted with PMH of DM, HTN, alcohol abuse??who presented on 01/23/2024 10:27 AM??with chief complaint of unresponsiveness.??He was found down at his home by the recharger person he had scheduled to visit his home today. His last known well was not clear. I spoke with his sister who said they had not seen or spoken to him in the last 24 hrs. ??He??was able to follow some command upon arrival to the hospital but had a hard time moving his lower limbs. MRI brain stat was quickly obtained showing multiple infarcts in the brainstem includingthe left midbrain and left thalamus and right periventricular region. 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 Decision to take to IVR for exploration and potential management. He was intubated in the ER for airway protection.??CTH stable. Family reports L pupil has been larger for 2+months. Extubated 01/24. ?? Reported seizure activity on 01/26, started on Keppra. ??No further seizure since. 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 MRI 02/06 showed new infarcts/progression of old - indicated due to persistent poor mental status?? RECOMMENDATIONS/PLAN: continue acute PT services with progression of EOB/OOB activity as tolerated Progress standing in travis steady as tolerated?? Utilize tape to keep L eye open PT Discharge Recommendations: Patient would benefit from intensive 3-hour multidisciplinary therapy This recommendation is made due to ongoing intensive PT functional needs: patient has the need for more than one skilled therapy service;motivated to participate in therapy;patient demonstrates a significant functional decline and would benefit from skilled therapy intervention to restore function;patient has the ability to progress and demonstrate measurable gains as a result of skilled therapy Recommended Transportation Method: Stretcher/Ambulance PPE worn by staff: gloves AM-PAC Basic mobility score for this patient is Mobility Raw Score:: 8 mRS prior: 0 mRS current: 5 Precautions: Full code,??Fall, SBP 120-180,??Trach, PEG, PIV,??Central line, Beltran, safety, soft wrist restraints, left eye Ptosis SUBJECTIVE:Subjective: Pt consented to therapy services Pain Assessment: Pain Location #1 Pain Scale/Observation: Behaviors Pain Rating Score #1: 0 Sedation Level #1: 1-Awake and alert OBJECTIVE: Cognition: Orientation Level: Unable to Obtain Cognition: Follows one step commands;Processing-delayed;Judgement-decreased Level of Consciousness-Adult: Alert;Eyes Open Spontaneously Participation: Active Participation ROM/Strength: L UE/LE WFL with cueing R UE limited with mod A and significant cueing to reach face R LE weak but able to move hip/knee/ankle against gravity at least 3/5 for mobility tasks this session Balance: Sitting - Static: With Both Upper Extremity's Support;Fair;Fair + Sitting - Dynamic: Fair -;With Both Upper Extremity's Support Bed Mobility: Rolling: Total Assistance Supine to Sit: Maximum Assistance;X 2 Sit to Supine: Total Assistance;X 2 Transfers: Sit to Stand: Maximum Assistance;X 3 (in travis steady) Stand to Sit: Maximum Assistance;X 3 (in travis steady) Chair to Bed: Activity Does Not Occur Bed to Chair: Activity Does Not Occur Transfer Device: Gait belt;Mechanical Stand Mobility: Distance Ambulated (ft): 0 FEET Ambulation: Level of Assistance: Activity Does Not Occur Activity Tolerance: Activity Tolerance: Requires rest breaks Vital signs: BP taken on R UE Vitals monitored throughout session and stable. BP parameters acknowledged and upheld. ASSESSMENT: Pt tolerated session well with stable vitals and denying dizziness, SOB, and other adverse s/s. RT present throughout session to manage vent.?? Pt's mentation stable from previous session. Pt remains with L eye ptosis and limited R side tracking, R side accurate with testing.This sessionutilized tap to hold L eye open, following removal of tape L eye to be partially open. Pt remained accurate with visual testing with both eyes open. Pt tolerated EOB ~10 minutes with ROM/strength/balance activities. Pt able to hold sitting balance for prolonged periods with Mod I using bed rail and UE support. Performed sit <> stand x5 in travis steady with PT behind to keep hips cleared, min Ax2 from other PT/OT.??With hips higher in travis steady seat, pt was able to initiate standing with MOD I using sarasteady with no physical A, required max A to complete stand. Overall, pt remains??pleasant and motivated with therapy despite??significant decline in functionalmobility with impairments of strength, ROM, endurance, safety awareness and activity tolerance. Pt continues to initiate with mobilization. Pt attentive and agreeable with therapy and all tasks asked of him making pt appropriate for rehab. Pt remains with decreased respiratory endurance with vent through a trach. RT ongoing SBT trials, tolerated one hour of airvo this date per RT. ?? Pt responds best to functional verbal cueing. ?? Call light and phone in reach with alarm activated. All lines, monitors, IV's, equipment in place and intact pre and post visit. RN notified of patient's performance/location end of session. Pt educated in PT plan of care, fall precautions, and benefits of OOB activity. Refer to Plan of Care for PT goals. See Filed Flowsheet under Summary for further details. RECOMMENDATIONS/PLAN: Progress as tolerated. If this is the last Physical Therapy visit, this serves as the discharge summary. Davon SPT Ascom [phone] * Chun Alexander PharmD - 02/15/2024 1:17 PM CDT Images from the original note were not included. Clinical Pharmacist Discharge Medication Reconciliation Review Patient's home medication list and inpatient orders were reviewed and compared to the discharge order summary and the AVS placed by the provider. Patients MAR, progress notes, recent labs, micro, vitals, procedural results, etc. reviewed as necessary. READMISSION RISK SCORE is 16 at 1:17 PM 02/15/2024. Readmission risk score > 18 are considered high risk for readmission. ASSESSMENT Medication discrepancies identified or potential areas for Intervention: None PLAN No medication adjustments were made after physician's discharge medication reconciliation. MEDICATION RECONCILIATION REVIEW AVS was updated as necessary. Updated discharge medication list is below in objective section. 02/15/2024 at 1:17 PM @OBJECTIVEBEGIN1@ Current Discharge Medication List START taking these medications Details albuterol (Proventil;Ventolin) (2.5 MG/3ML) 0.083% nebulizer solution Inhale 2.5 (two and one-half)mg by mouth every 4 hours as needed for Shortness of Breath or Wheezing amLODIPine (Norvasc) 10 MG tablet 1 (one) tablet by Enteral Tube route once daily aspirin (Aspirin) 81 MG chew tablet 1 (one) tablet by Enteral Tube route once daily clopidogrel (plaVIX) 75 MG tablet 1 [...] tablet by Enteral Tube route once daily CONTINUE these medications which have CHANGED Details atorvastatin (Lipitor) 40 MG tablet 1 (one) tablet by Enteral Tube route at bedtime STOP taking these medications Blood Glucose Monitoring Suppl (ONE TOUCH ULTRA MINI) W/DEVICE KIT Comments: Reason for Stopping: blood glucose test strip Comments: Reason for Stopping: CPAP Comments: Reason for Stopping: losartan (Cozaar) 50 MG tablet Comments: Reason for Stopping: metFORMIN (Glucophage) 500 MG tablet Comments: Reason for Stopping: metFORMIN (Glucophage) 500 MG tablet Comments: Reason for Stopping: One Touch Delica Lancets Comments: Reason for Stopping: sildenafil (Revatio) 20 MG tablet Comments: Reason for Stopping: * Christi Torres RCP - 02/15/2024 12:53 PM CDT Placed pt on AIRVO trial at 1241. 50L and 40% FIO2. Will continue to monitor. * Christi Torres RCP - 02/15/2024 12:47 PM CDT Patient has advanced airway of size and type 8.0 Bivonna Hyperflex Air cuff. Patient is on oxygen device AIRVO. Patient is receiving 40% FiO2. Patient is receiving 50 LPM. If Patient is receiving heat and humidity via Airvo and is capable of receiving greater than or equal support via trach collar and air entrainment device these settings would be: Airvo Settings 50L 60% 50L 50% 50L 40% 50L 30% 50L 21% 40L 60% 40L 50% 40L 40% 40L 30% 40L 21% Flowmeter setting for air entrainment device with same FiO2 N/A N/A 10L or greater 7L or greater 2Lor greater N/A N/A 10L or greater 5L or greater 2L or greater Airvo Settings 30L 60% 30L 50% 30L 40% 30L 30% 30L 21% 20L 60% 20L 50% 20L 40% 20L 30% 20L 21% Flowmeter setting for air entrainment device with same FiO2 N/A 12L or greater 8L or greater 4L or greater 1L or greater 10L or greater 8L or greater 5L or greater 3L or greater 1L or greater For questions or concerns please contact RT at [phone]. * Christi Torres RCP - 02/15/2024 12:47 PM CDT Spontaneous Breathing Trial Times Ventilator Liberation Times Ventilator Liberation Time ON: 1016 Ventilator Liberation Time OFF: 1241 Initial Settings PSV settin CPAP Settings cm H2O (Initial): 5 Subsequent Settings PSV settin CPAP Settings cm H2O (Subsequent): 5 Results Comments Passed Ventilator Liberation?: Yes Cuff leak test completed?: Not performed Ventilator Liberation Comments: Pt passed SBT and placed on AIRVO at this time for 1 hr per MD. * Sherie Beltre MD - 02/15/2024 11:26 AM CDT INTERVENTIONAL STROKE NEUROLOGY PROGRESS NOTE Hospital Day: 23 A 63 year old male was admitted with PMH of DM, HTN, alcohol abuse who presented on 01/23/2024 10:27AM with chief complaint of unresponsiveness. He was found down at his home by the recharger person he had scheduled to visit his home today. His last known well was not clear. I spoke with his sister who said they had not seen or spoken to him in the last 24 hrs. He was able to follow some command upon arrival to the hospital but had a hard time moving his lower limbs. Suspicion of posterior circulation stroke was entertained. MRI brain stat was quickly obtained showing multiple infarcts in the brainstem including the left midbrain and left thalamus and right periventricular region. 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 Decision to take to IVRfor exploration and potential management. He was intubated in the ER for airway protection. CTH stable. Family reports L pupil has been larger for 2+months. Extubated 01/24. Reported seizure activity on 01/26, started on Keppra. No further seizure since. PEG placed for neurogenic dysphagia, TF restarted. Re- intubated and sedated on 02/01 due to respiratory failure. Trach placed. 02/15/2024: Patient inbed sleeping, will briefly awaken. Currently on SBT and tolerating. Expected toDC to LTAC today. MEDICATIONS FOR CURRENT ENCOUNTER: SCHEDULED MEDICATIONS: 0.9% NaCl injection 3 mL, Intracatheter, q8h albuterol-ipratropium (Duo-Neb) nebulizer solution 3 mL, Inhalation, q6h amLODIPine (Norvasc) tablet 10 mg, Enteral Tube, QDAY aspirin chew tablet 81 mg, Enteral Tube, QDAY atorvastatin (Lipitor) tablet 40 mg, Enteral Tube, AT BEDTIME clopidogrel (plaVIX) tablet 75 mg, Enteral Tube, QDAY famotidine (Pepcid) tablet 20 mg, Enteral Tube, BID folic acid (Folvite) tablet 1 mg, Enteral Tube, QDAY furosemide (Lasix) injection 40 mg, Intravenous, BID heparin injection 5,000 Units, Subcutaneous, BID insulin aspart (NovoLOG) pen 0-18 Units, Subcutaneous, q6h insulin NPH pen 15 Units, Subcutaneous, q12h modafinil (Provigil) tablet 200 mg, Enteral Tube, QAM multiple vitamins with minerals tablet 1 tablet, Enteral Tube, QDAY senna-docusate (Senokot-S) tablet 2 tablet, Enteral Tube, BID sodium chloride 3 % nebulizer solution 3 mL, Inhalation, q6h thiamine (Vitamin B-1) tablet 100 mg, Enteral Tube, QDAY [COMPLETED] furosemide (Lasix) injection 40 mg, Intravenous, BID [COMPLETED] magnesium sulfate 2 g in 50 mL bolus, Intravenous, Once [COMPLETED] metOLazone (Zaroxolyn) tablet 5 mg, Enteral Tube, Once ??? [COMPLETED] metOLazone (Zaroxolyn) tablet 5 mg, Enteral Tube, Once ??? CONTINUOUS MEDICATIONS: PRN MEDICATIONS: Or Or 0.9% NaCl injection 1-10 mL, Intracatheter, PRN acetaminophen (Tylenol) tablet 650 mg, Enteral Tube, q4h PRN albuterol (Proventil;Ventolin) (2.5 MG/3ML) 0.083% nebulizer solution 2.5 mg, Inhalation, q4h PRN dextrose 10 % IV bolus, Intravenous, PRN dextrose 10 % IV bolus, Intravenous, PRN glucagon (Glucagen) injection 1 mg, Subcutaneous, PRN hydrALAZINE (Apresoline) injection 10 mg, Intravenous, q1h PRN ondansetron (Zofran) injection 4 mg, Intravenous, q4h PRN ??? prochlorperazine (Compazine) injection 10 mg, Intravenous, q4h PRN Peripheral IV Anterior;Right Forearm (Active) Placement Date/Time: 02/10/24 0700 Size (Gauge): 18 G Orientation: Anterior;Right Location: ForearmSite Prep: Chlorhexidine Technique: Ultrasound Guidance Insertion attempts (FOR ED ONLY): 1 Number of days: 5 Peripheral IV Anterior;Left;Upper Arm (Active) Placement Date/Time: 02/14/24 1830 Orientation: Anterior;Left;Upper Location: Arm Insertion attempts (FOR ED ONLY): 1 Number of days: 0 Enteral - Percutaneous Endoscopic Gastrostomy Abdomen;Midline;Upper (Active) Placement Date/Time: 01/30/24 1514 Placed by: Dr. Ruffin Type: Percutaneous Endoscopic Gastrostomy Tube Location: Abdomen;Midline;Upper Size (FR): 20 Lot Number: [id number] Procedure Tolerance: Sedated Number of days: 15 Trach Bivona (Active) Placement Date/Time: 02/05/24 0800 Person who placed: robbin Brand: Bivona Airway Device: Cuffed Cuff Type: Water (Bivona) Trach size: 8 MM Number of days: 10 Indwelling Transurethral Urinary Catheter (Active) Placement Date/Time: 02/06/24 2330 Placed by: Melony Peterson Size (FR): 16 Catheter Balloon Size: 10 mL Closed System Maintained This Shift: Yes, Seal Intact Number of attempts: 1 Procedure Tolerance: Well Number of days: 8 BP 125/84 (BP Location: Right arm, Patient Position: Lying) Pulse 80 Temp 99.1 ??F (37.3 ??C) (Oral) Resp 28 Ht 1.93 m (6' 4 ) Wt 128 kg (282 lb 3 oz) SpO2 95% Wt Readings from Last 3 Encounters: 02/15/24 128 kg (282 lb 3 oz) 09/17/23 (!) 148.6 kg (327 lb 9.6 oz) 05/07/23 (!) 145.2 kg (320 lb) Multisystem Examination: Neck: Limited due to Trach Respiratory: No respiratory distress. Cardiovascular: Normal heart rate, Normal rhythm. GI: Soft, No tenderness Integument: Warm, Dry Neurological Examination: The patient is trached, eyes closed. Opens to verbal stimuli. Speech is mouths words. L Pupils 4 non-reactive not responding to threat. Right pupil 3 mm reactive. Motor/Sensory: No involuntary movements were observed. Moving all limbs spontaneously. Coordination: Unable to perform finger to nose. Gait: Not tested due to patient condition. Labs Recent Labs Component Name 02/04/24 0328 01/24/24 0443 07/23/20 0649 01/20/19 1134 CHOL - 229* 254* 258* TRIG 190* 179* 179* 63 HDL - 32* 48 63 LDLCALC - 161* 173* 179* Recent Labs Component Name 02/15/24 0423 02/14/24 1610 02/14/24 0429 02/08/24 1153 02/08/24 0526 01/31/24 1116 01/30/24 0429 01/29/24 0259 SODIUM 140 135* 137 - 141 - 139 140 POTASSIUM 4.2 4.2 4.2 - 3.9 - 4.1 4.1 CHLORIDE 101 104 106 - 104 - 101 100 CO2 24 22 - 24 - 27 BUN 42* 38* 36* - 38* - 17 15 CREATININE 0.90 0.95 0.85 - 0.95 - 0.80 0.74 GLUCOSE 141* 253* 182* - 178* - 146* 135* CALCIUM 9.8 10.0 9.2 - 9.7 - 9.6 9.3 ALBUMIN - 2.6* - - 2.1* - 2.7* 2.7* ALKPHOS - - - - 193* - 81 90 ALT - - - - 73* - 9 10 AST - - - - 62* - 14 14 TBIL - - - - 0.3 - 0.2 0.2 TPROT - - - - 8.0 - 7.8 8.2 EGFR >90 89* >90 - 89* - >90 >90 - = values in this interval not displayed. Evaluation: CT head 01/22: 1. No acute intracranial hemorrhage. 2. Involutional changes with chronic lacunar infarctions and ischemic microangiopathy. 3. Age indeterminate infarction left thalamus and less likely a sequela of trans-synaptic degeneration. MRI brain if there is concern for acute ischemia. CT head 01/23: No acute intracranial hemorrhage. Stable chronic findings. CT angio: Short segment severe, string-like stenosis of the lower basilar artery just above the vertebral confluence. Cerebral Angiogram Impression 01/23/2024: A severe stenosis in the proximal basilar artery, s/p successful balloon angioplasty. Residual stenosis about 50% in lateral view MRI Brain: 1. New 11 x 6 mm acute infarction within the right periatrial white matter/major forceps. 2. There is expected evolution of previously demonstrated acute infarctions within the left thalamus and extending into the midbrain as well as the right frontal merchant radiata as compared with 01/23/2024. 3. Persistent global involutional changes, chronic right basal ganglia lacunar infarction and underlying ischemic microangiopathy. Echo: ??? Left??Ventricle: Left ventricle size is normal. Mildly to moderately increased wall thickness. Normal systolic function. EF 50-55%. Normal wall motion. Diastolic function is indeterminate. ??? Right??Ventricle: Right ventricle is not well visualized. ??? Aortic??Valve: Mild regurgitation. EKG: Results for orders placed or performed during the hospital encounter of 01/23/24 EKG 12-LEAD Result Value Ref Range Ventricular Rate 96 BPM Atrial Rate 96 BPM P-R Interval 146 ms QRS Duration ms 78 ms Q-T Interval ms 360 ms QTC Calculation (Bezet) 454 ms Calculated P [place] 79 degrees Calculated R [place] 76 degrees Calculated T [place] -77 degrees Interpretation EKG Normal sinus rhythm ST & T wave abnormality, consider inferolateral ischemia Abnormal ECG When compared with ECG of 26-JUL-2022 16:28, Premature ventricular complexes are no longer Present Non-specific change in ST segment in Anterior leads Inverted T waves have replaced nonspecific T wave abnormality in Inferior leads T wave amplitude has increased in Anterior leads Confirmed by JUSTICE PURVIS MD ([id number]) on 01/23/2024 2:35:44 PM Tele: Cardiac Rhythm: Sinus Rhythm (02/15/24 1000) LDL: Recent Labs Component Name 01/24/24 0443 07/23/20 0649 01/20/19 1134 LDLCALC 161* 173* 179* HgBA1C: Recent Labs Component Name 01/23/24 1039 09/17/23 1330 10/18/22 1045 HGBA1C 6.1* 6.5 5.9 Initial documented NIHSS Score: NIH Total: 13 (01/23/24 1048) Last Documented NIHSS Score: NIH Total: 15 (02/15/24 0800) Depression Screen Score = Does not meet criteria for screening: Intubation PHQ-2 PHQ-9 Therapy Recommendations: Discharge Discharge Equipment Recommendations: To Be Determined (02/14/24932) OT Discharge Recommendations: Patient would benefit from intensive 3-hour multidisciplinary therapy(02/14/24932) This recommendation is made due to ongoing intensive OT functional needs: ability to actively participate in intensive therapy 3 hours/day, 5 days a week;patient has the need for more than one skilled therapy service;motivated to participate in therapy;not at baseline due to impaired ability to complete ADL's;functional mobility is significantly below baseline;likely to return to the community atdischarge with support system;patient and/or caregiver require specialized training;patient has theability to progress and demonstrate measurable gains as a result of skilled therapy;patient demonstrates a significant functional decline and would benefit from skilled therapy intervention to restore function (02/14/24932) PT Discharge Recommendations: Patient would benefit from intensive 3-hour multidisciplinary therapy(02/14/24925) This recommendation is made due to ongoing intensive PT functional needs: patient has the need for more than one skilled therapy service;motivated to participate in therapy;patient demonstrates a significant functional decline and would benefit from skilled therapy intervention to restore function;patient has the ability to progress and demonstrate measurable gains as a result of skilled therapy (02/14/24925) Recommended Transportation Method: Stretcher/Ambulance (02/14/24932) Modified Mervin Score: Preadmission Modified [place] Score: 0 (01/26/24935) Current Modified [place] Score: 5 (02/14/24925) Procedures: Basilar artery??angioplasty 01/23/2024 PEG 01/30/24 Trach 02/05/2024 IMPRESSION - Acute ischemic stroke: Posterior circulation syndrome - 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 - Statin: Lipitor - VTE prevention with SCDs and Heparin - Allow permissive HTN - Maintain euglycemia, SSI - Off keppra now. Monitor for seizure activity. - PEG for nutrition and medication - PT/OT and speech therapy ongoing. - ICU for medical management. - LTACH today, follow up arranged. - Wean vent as tolerated Travis Bhat, MSN, CORPORATE FINANCIAL ANALYST, MERCHANDISE FLOW MANAGER-C, SCRN, CNRN Interventional Vascular Neurology [facility] [place] ASCOM #[id number] ATTESTATION I have seen and examined the patient with the nurse practitioner. I have re- confirmed the paula elements of the history and performed an examination. I have discussed the patient's care with the nurse practitioner. Pt has been accepted to [facility] and will be transferred today. He remains stable and neurologically improving. We will follow up with him in clinic. 02/15/2024 Sherie Beltre MD Interventional Vascular Neurology [facility] [place] . * Annamarie Bonilla RN - 02/15/2024 10:49 AM CDT Care Coordination Progress Note Contacted the pt's Sister Jenn Mckee Report info.... Dr to MERCHANDISE FLOW MANAGER Ceci Wei: [phone] RN to RN: [phone] Fax d/c orders to: [phone] Anticipated Discharge Date: 02/15/24 Anticipated level of care at discharge: Intermediate Acute Care (LTAC) Anticipated level of care provider: [address], ROOM 104 (room will be available @ 1800 hrs) [place] [address] Transportation at Discharge: Ambulance MMT [phone] reserved. Juke Box Mechanic from [facility] @ 1700 hrs TRIP #[id number] Payer/Plan Subscriber Name Rel Member # Group # [employer] - [facility] [id number] VAZQUEZ* Self [id number] [address] [id number] READMISSION RISK SCORE is 17 at 10:50 AM 02/15/2024. Portions of this note have been copied from the medical record, but edited appropriately to accurately reflect the patient's current clinical state. Annamarie Bonilla RN Case Management - ICU 3N & 3S [facility] Ascom: [phone] O: [id number] * Andrea Zamorano MD - 02/15/2024 10:33 AM CDT ICU Progress Note Subjective: No acute events overnight. PSV on 09/18 this AM. Subjective: Filed Vitals: 02/15/24 0830 02/15/24 0842 02/15/24 0845 02/15/24 0900 BP: 118/88 Pulse: 78 84 84 82 Resp: 20 Temp: TempSrc: SpO2: 97% 100% 99% 95% Weight: Height: Artificial airway None Physical Exam: GENERAL APPEARANCE: Acutely ill appearing EYE: extraocular eye movements intact HEENT: NCAT, MMM secretions improved. NECK: Supple Trach site CDI RESP: coarse to auscultation bilaterally. Referred vent sounds. CARDIO: Regular rate, rhythm without murmur. GI/AB: soft, nttp, normoactive bowel sounds SKIN: Normal to inspection. Warm, dry, supple, with no changes in moles or sores that will not heal. NEUROMUSC: withdraws to painful stimuli, moving left side purposefully, waking to verbal stimuli, smiling, answering yes/no questions. Moving right arm and more spontaneously. Output by Drain (mL) 02/13/24 07 - 02/13/24 1900 02/13/24 190 - 02/14/24 0702/14/24 0701 - 02/14/24 1900 02/14/24 190 - 02/15/24 0700 02/15/24 0701 - 02/15/24 1033 Requested LDAs do not have output data documented. Peripheral IV Anterior;Right Forearm (Active) Placement Date/Time: 02/10/24 07 Size (Gauge): 18 G Orientation: Anterior;Right Location: ForearmSite Prep: Chlorhexidine Technique: Ultrasound Guidance Insertion attempts (FOR ED ONLY): 1 Number of days: 5 Peripheral IV Anterior;Left;Upper Arm (Active) Placement Date/Time: 02/14/24 1830 Orientation: Anterior;Left;Upper Location: Arm Insertion attempts (FOR ED ONLY): 1 Number of days: 0 Enteral - Percutaneous Endoscopic Gastrostomy Abdomen;Midline;Upper (Active) Placement Date/Time: 01/30/24 1514 Placed by: Dr. Ruffin Type: Percutaneous Endoscopic Gastrostomy Tube Location: Abdomen;Midline;Upper Size (FR): 20 Lot Number: [id number] Procedure Tolerance: Sedated Number of days: 15 Trach Bivona (Active) Placement Date/Time: 02/05/24 0800 Person who placed: robbin Brand: Bivona Airway Device: Cuffed Cuff Type: Water (Bivona) Trach size: 8 MM Number of days: 10 Indwelling Transurethral Urinary Catheter (Active) Placement Date/Time: 02/06/240 Placed by: Melony Peterson Size (FR): 16 Catheter Balloon Size: 10 mL Closed System Maintained This Shift: Yes, Seal Intact Number of attempts: 1 Procedure Tolerance: Well Number of days: 8 Laboratory Results Reviewed Radiology Reviewed Assessment: Hospital Day: Raza Vazquez is a 63 yom with histdory of CAD s/p CABG, obesity, HTN, HLD, DM II who presented to the ICU after an acute ischemic stroke. Timeline 01/22: Presented to ED after being found down. MRI with brainstem infarcts. 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 Transferred to ICU. 01/23: Sedation weaned. Following simple commands 01/24: Extubated 01/26: Worsening encephalopathy. cEEG initiated. Started on keppra. 01/27: EEG read normal 01/28: Transferred from ICU level of care to stroke service 01/29: PEG placed by GI 01/30: OOB to chair 02/01: Worsening mental status, not clearing secretions. ICU re-consulted. Intubated. 02/02: cont on vent support 02/03: consent obtained for trach. Cont TF and sedation. 02/04: tracheostomy 02/06: MRI for consistently poor mental status 02/07: started to wake and follow commands this AM. 02/08: cont vent weaning attempts. 02/09: trach exchanged for XLT bivona air 02/10: cont breathing trials. Tolerated ASV 02/11: tolerated SBT at 16/5 while up in combilizer. 02/13: con't PSV trials. Plan: Respiratory: Acute hypoxic respiratory failure due to aspirations and acute ischemic stroke with poor secretion clearance - Lung protective ventilation with goal 6-8 cc/kg IBW - Maintain Drive pressure < 15, SaO2 > 90, HOB > 30 degrees, Plateau pressure < 30 cm H20 - Continue duonebs and hypertonic nebs -- Tracheostomy placed 02/04 - changed to hyperflex -- rest on vent qhs -- daily SAT and SBT trials. Aspiration PNA now with staph aureus on sputum - Completed 5 days of empiric ceftriaxone 01/27 - Sputum gram stain with MSSA; plan for 7 days of abx. 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 - Avoid sedating medications like benzos and antipsychotics, as much as possible. - PT/OT with early mobility as appropriate - No clinical signs of seizure activity. ID: Sepsis with pulmonary source - improving - sputum cx with MSSA - cont ancef - Continue to monitor WBC and fever curve. Renal: BOLA - improving Hyponatremia, hyperphosphatemia, NS as above. - cont trending labs - Strict Is and Os GI/Diet: Malnutrition Diagnosis Severe Protein Calorie malnutrition in context of acute disease or injury was present on admission.Diagnosis is made in consultation with clinical nutrition who have implemented a care plan. - cont TFs - Continue supplements Endo: DM II - Continue SSI Q 6 - NPH 15 u q12hr Heme: DVT ppx - SQ heparin Prognosis: fair Family updates: niece and nephew updated at bedside. Code Status: Full Code Disposition: Case management planning LTAC transfer. Auth pending Critical Care Time: I personally spent 35 minutes providing Critical Care services, time was exclusive to this patient and does not include time spent teaching or in procedures. Andrea Zamorano MD 02/15/24 10:33 AM Critical Care Medicine * Travis Dubose, RD/LDN - 02/15/2024 8:44 AM CDT CLINICAL NUTRITION Pt discussed in rounds today. Pt remains on the vent via trach. TF is at goal and tolerating. +BMs after bowel regimen increased. Labs reviewed. BUN and phos trending up. Will monitor. Current diet order: NPO Current tube feeding order: Vital 1.2 at 75 ml/hr, water flush per MD / 1 protein additive daily (2160 kcal, 135 g pro, 1460 ml free water / 60 kcal, 15 g pro from additive) MEDICATIONS FOR CURRENT ENCOUNTER: ?? SCHEDULED MEDICATIONS: ?? 0.9% NaCl injection 3 mL, Intracatheter, q8h ?? albuterol-ipratropium (Duo-Neb) nebulizer solution 3 mL, Inhalation, q6h ?? amLODIPine (Norvasc) tablet 10 mg, Enteral Tube, QDAY ?? aspirin chew tablet 81 mg, Enteral Tube, QDAY ?? atorvastatin (Lipitor) tablet 40 mg, Enteral Tube, AT BEDTIME ?? clopidogrel (plaVIX) tablet 75 mg, Enteral Tube, QDAY ?? famotidine (Pepcid) tablet 20 mg, Enteral Tube, BID ?? folic acid (Folvite) tablet 1 mg, Enteral Tube, QDAY ?? furosemide (Lasix) injection 40 mg, Intravenous, BID ?? heparin injection 5,000 Units, Subcutaneous, BID ?? insulin aspart (NovoLOG) pen 0-18 Units, Subcutaneous, q6h ?? insulin NPH pen 15 Units, Subcutaneous, q12h ?? magnesium sulfate 2 g in 50 mL bolus, Intravenous, Once ?? metOLazone (Zaroxolyn) tablet 5 mg, Enteral Tube, Once ?? modafinil (Provigil) tablet 200 mg, Enteral Tube, QAM ?? multiple vitamins with minerals tablet 1 tablet, Enteral Tube, QDAY ?? senna-docusate (Senokot-S) tablet 2 tablet, Enteral Tube, BID ?? sodium chloride 3 % nebulizer solution 3 mL, Inhalation, q6h ?? thiamine (Vitamin B-1) tablet 100 mg, Enteral Tube, QDAY ?? [COMPLETED] furosemide (Lasix) injection 40 mg, Intravenous, BID ?? [COMPLETED] metOLazone (Zaroxolyn) tablet 5 mg, Enteral Tube, Once Component Name 02/15/24 0423 02/14/24 1610 02/14/24 0429 02/08/24 0526 01/30/24 042 SODIUM 140 135* 137 141 139 POTASSIUM 4.2 4.2 4.2 3.9 4.1 CHLORIDE 101 104 106 104 101 CO2 24 22 23 24 26 BUN 42* 38* 36* 38* 17 CREATININE 0.90 0.95 0.85 0.95 0.80 GLUCOSE 141* 253* 182* 178* 146* CALCIUM 9.8 10.0 9.2 9.7 9.6 ALBUMIN - 2.6* - 2.1* 2.7* PHOS 5.4* 5.2* 4.7 - 3.7 ANIONGAP 15 9 8 13 12 Blood Sugar Range Past 24 hours: Glucose Bedside (mg/dL) Av.3 mg/dL Min: 152 mg/dL Max: 245 mg/dL Last BM (Date): 02/15/24 Bowel Sounds (All Quadrants): Active (per nursing documentation) Nutrition Issues/Plan: ?? Continue Vital 1.2 at 75 ml/hr, water flush per MD / 1 protein additive daily. ?? Monitor renal labs. Monitor per nutrition guidelines. ASCOM [id number] * Christos Sheikh RCP - 02/15/2024 3:49 AM CDT Patient is mechanically ventilated mode APVCMV RR 15 VT 520 PEEP 5 FIO2 21. 8.0 Bivona hyperflex 9mL. Patient will continue to be ventilated. Will continue to SBT and assess as able. No SBT at this time per MD, letting pt rest after full day of ASV, will attempt airvo trial again after letting pt rest * Sylvia Cronin RN - 02/14/2024 10:20 PM CDT Problem: Fall Risk Goal: Patient will remain free of falls Outcome: Progressing Problem: Skin Integrity Goal: Skin integrity is maintained or improved Outcome: Progressing Problem: Neurological Deficit Goal: Neurological status is stable or improving Outcome: Progressing * Hamlet Patel RN - 02/14/2024 7:21 PM CDT Shift Summary Nursing [facility] 3S ICU Room: 0343/02/14/24 Patient: Raza Vazquez Sex: male Age: [age] year old : 1960 [facility]#: [id number] Height: 193 cm (6' 4 ) Weight: 128.5 kg (283 lb 4.7 oz) Body mass index is 34.48 kg/m??. Code Status: Full Code Admit: 01/23/2024 Hospital Day: Attending: Sherie Beltre MD Unit: [facility] 3S ICU Allergies Allergen Reactions ??? Lisinopril Angioedema ??? Pcn [Penicillins] Swelling eyes swelled shut 50 years ago ??? Penicillin V Rash Safety concerns: Choose Restraint type: Non-Violent Non-Violent Restraint Type Soft Wrist - Left (NV): CONTINUED Soft Wrist - Bilateral (NV): CONTINUED Past Medical/surgical History Past Medical History: Diagnosis Date ??? Anemia 01/2018 ??? Asthma ([facility]) ??? Chest congestion 08/05/2020 ??? Confusional arousals 08/05/2020 ??? Controlled type 2 diabetes mellitus without complication, without long-term current use of insulin ([facility]) 09/28/2011 ??? 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 Cough syncope 2017 ??? Daytime sleepiness 08/05/2020 ??? Essential hypertension 01/23/2018 ??? Hyperlipidemia 08/05/2020 ??? Inadequate sleep hygiene 08/05/2020 ??? Morbid obesity with BMI of 40.0-44.9, adult ([facility]) 08/05/2020 ??? Nocturia 08/05/2020 ??? Obesity (BMI 30-39.9) 04/24/2012 ??? Other chest pain 09/04/2018 ??? S/P CABG x 3 01/24/2018 ??? Snoring 08/05/2020 ??? Superficial postoperative wound infection 02/23/2018 sternum ??? Wears glasses 08/05/2020 ??? Weight gain 08/05/2020 40# past 6-8 months-covid ??? Wound of sternal region 02/23/2018 Past Surgical History: Procedure Laterality Date ??? COLONOSCOPY N/A 11/12/2020 N/A; COLONOSCOPY SCREEN ??? Coronary Artery Bypass Graft N/A 01/24/2018 N/A; Coronary artery bypass graft x 3 ??? ENDOSCOPY, UPPER N/A 01/30/2024 N/A; ESOPHAGOGASTRODUODENOSCOPY (EGD) WITH PEG PLACEMENT ??? Tonsillectomy Vitals Temp: 97.9 ??F (36.6 ??C) Temp Source: Axillary Pulse: 85 Heart Rate Source: Monitor Resp: 17 BP: 166/98 MAP: 120 Arterial Line BP #1: 195/99 Art Line MAP #1: 133 mmHg Patient Vitals for the past 6 hrs: Temp Pulse Resp BP 02/14/24 1915 -- 85 17 -- 02/14/24 1900 -- 90 26 166/98 02/14/24 1815 -- 85 28 -- 02/14/24 1800 -- 83 21 145/97 02/14/24 1745 -- 86 17 -- 02/14/24 1730 -- 88 16 -- 02/14/24 1715 -- 82 17 -- 02/14/24 1700 -- 82 11 115/75 02/14/24 1645 -- 83 25 -- 02/14/24 1630 -- 91 19 -- 02/14/24 1615 -- 86 17 -- 02/14/24 1600 97.9 ??F (36.6 ??C) 83 18 139/89 02/14/24 1545 -- 84 18 -- 02/14/24 1530 -- 79 18 -- 02/14/24 1515 -- 82 17 -- 02/14/24 1507 -- 97 -- -- 02/14/24 1500 -- 82 -- 114/85 02/14/24 1445 -- 85 -- -- 02/14/24 1430 -- 90 17 -- 02/14/24 1400 -- 90 -- (!) 155/106 02/14/24 1345 -- 89 -- -- 02/14/24 1330 -- 84 -- -- Neurological Neurological Level of Consciousness-Adult: Alert;Eyes Open Spontaneously Orientation Level: Unable to Obtain Cognition: Follows one step commands;Judgement-decreased;Safety awareness-decreased Speech: Intubated/trached Vision: Partial hemianopia Pupil Size Right (MM): 2 Pupil Assessment Right: Sluggish;Round Pupil Size Left (MM): 4 Pupil Assessment Left: Nonreactive (fixed) Facial symmetry: Symmetrical RASS: RASS : Drowsy - Not fully alert, but has sustained awakening (eye- opening/eye contact) to voice (10 seconds or greater) to verbal stimulation Last Known Well: Initial documented NIHSS Score: NIH Total: 13 (01/23/24 1048) Last Documented NIHSS Score: NIH Total: 16 (02/14/24 0800) Neuromuscular Neuromuscular Motor Response RUE: Responds to commands;Spontaneous and Purposeful 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 Motor Function RUE: Can Overcome Resistance (Weak) Sensation RUE: Normal;No numbness;No tingling Motor Response LUE: Responds to commands;Spontaneous and Purposeful Left hand machine pack assembler: Weak Motor Function LUE: Moderate Strength Sensation LUE: Normal;No numbness;No tingling Right foot dorsiflexion: Weak Right foot plantar flexion: Weak Motor Response RLE: Responds to commands;Spontaneous and Purposeful Motor Function RLE: Can Overcome Resistance (Weak) Sensation RLE: Normal;No numbness;No tingling Left foot dorsiflexion: Weak Left foot plantar flexion: Weak Motor Response LLE: Responds to commands;Spontaneous and Purposeful Motor Function LLE: Can Overcome Resistance (Weak) Sensation LLE: Normal;No numbness;No tingling Ataxia: Absent Cardiac Cardiac Monitoring Cardiac Rhythm: Sinus Rhythm Ectopy: None Ectopy Frequency: Rare Respiratory SPO2: SpO2: 95 % Monitor: Liters Per Minute: O2 L/M: 2 FIO2: O2 % (FiO2): 21 % Device: $ O2 DEVICE: Ventilator $ O2 % (FiO2): 21 % $ O2 DEVICE: Ventilator $ Incentive Spirometry Volume: # Attempts: Performance: Vent Settings Mechanical Ventilation VENT MODE: APV/CMV SET VENTILATION RATE (bpm): 15 bpm OBSERVED VENTILATION RATE (bpm): 20 bpm SET TIDAL VOLUME (mL): 520 ML EXHALED TIDAL VOLUME (ml): 506 ml Spontaneous Tidal Volume (mL): 499 ML Pressure Support: 12 cm H2O PEEP/CPAP: 5 cm H20 ETCO2 (mmHg): 35 mmHg OBSERVED PEAK INSPIRATORY PRESSURE (cm H2O): 24 cm H2O % MV: 80 % S RR: 15 bpm S VT: 520 ML PEEP/CPAP: 5 cm H20 Mean Airway Pressure (cm H2O): 14 cm H2O O2 %: 21 % ABG: Recent Labs Component Name 02/02/24 1609 07/26/22 1756 01/25/18 0026 PH 7.55* - 7.42 PCO2 32* - 38 PO2 394* - 82 HCO3 - - 24.3 - = values in this interval not displayed. ABG: Recent Labs Component Name 02/02/24 1609 01/27/24 1233 01/23/24 1714 [id number] 28.0* 28.5* 26.6* Gastric Intestinal Orders Placed This Encounter Procedures ??? DIET NPO Except: NO EXCEPTIONS Standing Status: Standing Number of Occurrences: 1 Order Specific Question: Except Answer: NO EXCEPTIONS ??? DIET TUBE FEEDING CONTINUOUS Standing Status: Standing Number of Occurrences: 1 Order Specific Question: Formula Type? Answer: VITAL AF 1.2 (ELEMENTAL) Order Specific Question: Route? Answer: PEG/G TUBE Order Specific Question: Goal Feeding (ml/hr): Answer: 75ML Order Specific Question: Flush Frequency: Answer: Every 6 hours Order Specific Question: Free Water Flush Amount in ml: Answer: 50 Order Specific Question: Protein Additives: Answer: 1 PROTEIN FLUSH/FEEDING TUBE DAILY DIET NPO Except: NO EXCEPTIONS DIET TUBE FEEDING CONTINUOUS Last BM (Date): 02/12/24 Feeding: Feeding: Completely dependent LBM: Last BM (Date): 02/12/24 Bowel Patern: Bowel Sounds: Bowel Sounds (All Quadrants): Active Stool Assessment Bowel Incontinence: No Stool Appearance : Loose Stool Color : Brown Stools (# of stools): 1 Stool Amount: Smear Urinary Urinary Urine Color: Yellow Urine Appearance: Clear Urine Odor: No Odor Urinary Symptoms: Catheter $ Bladder Scan Pre Void Volume: 246 ML [REMOVED] Condom Urinary Catheter 01/26/24 1441-Urine Output (catheter): 300 [REMOVED] External Urinary Device 01/27/24 1000-Urine Output (catheter): 150 [REMOVED] Condom Urinary Catheter 02/01/24 1410-Urine Output (catheter): 175 [REMOVED] Indwelling Transurethral Urinary Catheter-Urine Output (catheter): 100 [REMOVED] Indwelling Transurethral Urinary Catheter-Urine Output (catheter): 150 [REMOVED] Indwelling Transurethral Urinary Catheter-Urine Output (catheter): 85 Indwelling Transurethral Urinary Catheter-Urine Output (catheter): 375 Intake/Output Date 02/13/24 1500 - 02/14/24 0659 02/14/24 0700 - 02/15/24 0659 Shift 1833-5878 6990-2958 24 Hour Total 6809-9242 3189-0222 6374-0929 24 Hour Total INTAKE Tube 192 966 7224 250 250 Enteral 238 822 3313 600 300 900 Shift Total(mL/kg) 700(5.6) 1247(9.7) 2973(23.1) 850(6.6) 300(2.3) 1150(8.9) OUTPUT Urine(mL/kg/hr) 285(0.3) 300(0.3) 1110(0.4) 675(0.7) 450 1125 Shift Total(mL/kg) 285(2.3) 300(2.3) 1110(8.6) 675(5.3) 450(3.5) 1125(8.8) NET 068 253 5471 175 -150 25 Weight (kg) 125 128.5 128.5 128.5 128.5 128.5 128.5 Cumulative Intake/Output Cumulative Intake: 2197 ML Cumulative Output: 1365 ML Net Cumulative I/O: 832 ML Skin Evan Score, Total Score: 15 Skin Condition: Dry Hygiene Hygiene Hygiene: Bathed;Shower Hygiene Level of Assistance: Completely dependent Skin Care / Prevention: Float Heels;Protective Dressing;Specialty Mattress Oral Care: Performed Antimicrobial Skin Treatment: Yes Activity: Mobility Activity: In bed Repositioned: Supine;Semi Villegas's HOB Elevated (in degrees): HOB 45 Level of Assistance: Completely dependent Activity Assistive Device: Repositioning Device Distance Ambulated (ft): 0 FEET Ambulation Response: Tolerated - Well Range of Motion: All Extremities;Active Anti-Embolism Interventions: Off Anti-embolism Mechanical Devices: Sequential compression devices Knee High Lines and Drains Peripheral IV Anterior;Right Forearm (Active) Placement Date/Time: 02/10/24 0700 Size (Gauge): 18 G Orientation: Anterior;Right Location: ForearmSite Prep: Chlorhexidine Technique: Ultrasound Guidance Insertion attempts (FOR ED ONLY): 1 Number of days: 4 Enteral - Percutaneous Endoscopic Gastrostomy Abdomen;Midline;Upper (Active) Placement Date/Time: 01/30/24 1514 Placed by: Dr. Ruffin Type: Percutaneous Endoscopic Gastrostomy Tube Location: Abdomen;Midline;Upper Size (FR): 20 Lot Number: [id number] Procedure Tolerance: Sedated Number of days: 15 Trach Bivona (Active) Placement Date/Time: 02/05/24 0800 Person who placed: robbin Brand: Bivona Airway Device: Cuffed Cuff Type: Water (Bivona) Trach size: 8 MM Number of days: 9 Indwelling Transurethral Urinary Catheter (Active) Placement Date/Time: 02/06/24 2330 Placed by: Melony Peterson Size (FR): 16 Catheter Balloon Size: 10 mL Closed System Maintained This Shift: Yes, Seal Intact Number of attempts: 1 Procedure Tolerance: Well Number of days: 7 Continuous Medications Labs Recent Labs Component Name 02/14/24 1610 02/14/24 0429 02/13/24 0429 02/08/24 1153 02/08/24 0526 01/31/24 1116 01/30/24 0429 01/29/24 0259 SODIUM 135* 137 142 - 141 - 139 140 POTASSIUM 4.2 4.2 4.6 - 3.9 - 4.1 4.1 CHLORIDE 104 106 105 - 104 - 101 100 CO2 - - 27 BUN 38* 36* 32* - 38* - 17 15 CREATININE 0.95 0.85 0.79 - 0.95 - 0.80 0.74 GLUCOSE 253* 182* 156* - 178* - 146* 135* CALCIUM 10.0 9.2 8.7 - 9.7 - 9.6 9.3 ALBUMIN 2.6* - - - 2.1* - 2.7* 2.7* ALKPHOS - - - - 193* - 81 90 ALT - - - - 73* - 9 10 AST - - - - 62* - 14 14 TBIL - - - - 0.3 - 0.2 0.2 TPROT - - - - 8.0 - 7.8 8.2 EGFR 89* >90 >90 - 89* - >90 >90 - = values in this interval not displayed. Narrative Pt alert NIH 16 Follows commands Moves all extremities Up in combo chair x 6 hours Beltran remains for retention No BM Family updated Hamlet Patel RN 02/14/2024 7:22 PM This note is only as accurate as the information entered into [facility]. Be sure to review Orders and MAR for additional information * Christi Torres, PLASTER WHITTLER - 02/14/2024 5:48 PM CDT 02/14/24 1623 Patient Verification Patient Identified: Verified Name;By Identification Arm Band;Verified Birthdate Trach Bivona Placement Date/Time: 02/05/24 0800 Person who placed: robbin Brand: Bivona Airway Device: Cuffed Cuff Type: Water (Bivona) Trach size: 8 MM Trach Status Secured;Open/Patent Current Trach size 8 Trach Site Assessment Cleansed and Dried Trach Dressing Type Gauze Trach Dressing Status Changed;Clean;Dry;Intact Trach Dressing Intervention Changed Trach Inner Cannula Care No inner cannula Trach Ties Assessment Clean, Dry, Intact Cuff inflation volume 9 mL Airway Emergency Supplies Available Extra Trach (same size);Extra Trach (size smaller);Obturator;Resuscitation Bag w/PEEP valve;Suction Device Verified Trach Handoff Report at bedside Yes- Report at bedside Airway Care/VAE Inline Suction Catheter? Inplace HOB between 30-45 degrees Yes Suctioned? No Mechanical Ventilation Mode VENT MODE APV/CMV Medical Gases O2 % (FiO2) 21 % Vitals ETCO2 (mmHg) 35 mmHg Ventilation Rate SET VENTILATION RATE (bpm) 15 bpm OBSERVED VENTILATION RATE (bpm) 20 bpm Insp Time 1.32 Insp Flow (L/Min) 54.2 l/Min Actual I:E Ratio 1:32 Volumes SET TIDAL VOLUME (mL) 520 ML EXHALED TIDAL VOLUME (ml) 506 ml Observed Minute Ventilation (L/m) 10.6 Liters/Minute Tubing Compensation (ATC) On Ventilator Pressures OBSERVED PEAK INSPIRATORY PRESSURE (cm H2O) 24 cm H2O Mean Airway Pressure (cm H2O) 14 cm H2O PEEP/CPAP 5 cm H20 Sensitivity Flow Trigger 3 Safety & Alarms Airway Emergency Supplies Available Bulb syringe/suction;Obturator;Resuscitation Bag;Resuscitation Bag with PEEP Valve Humidity Source Active Humidity Humidity Temp (C) 37 Celsius H2O Bag 3/4 Humidifier alarm on and functional Yes Expiratory Filter In place Backup Mode Checked Yes Alarm Volume 10 High Pressure Alarm (cm H2O) 50 cm H2O Low Pressure alarm (cmH2O) 5 High Minute Ventilation 25 Low Minute Ventilation 3 High Tidal Volume 1000 Low Tidal Volume 200 ml High Resp Rate 40 Low Resp Rate 8 Apnea (secs) 20 secs High ETCO2 60 mmHg Low ETCO2 20 mmHg * Christi Torres RCP - 02/14/2024 3:09 PM CDT Spontaneous Breathing Trial Times Ventilator Liberation Times Ventilator Liberation Time ON: 1413 Ventilator Liberation Time OFF: 1427 Initial Settings PSV settin CPAP Settings cm H2O (Initial): 5 Subsequent Settings PSV settin CPAP Settings cm H2O (Subsequent): 5 Results Comments Passed Ventilator Liberation?: Yes Cuff leak test completed?: Not performed Ventilator Liberation Comments: Pt didnt pass. He was only getting 4ml/kg ibw. Put back in full support. aware. * Annamarie Bonilla RN - 02/14/2024 3:06 PM CDT Care Coordination Progress Note CM notified by Zeina with [facility], the clinical documentation was submitted on Sunday to the incorrect division and they will need to resubmit today 02/13 to [facility]. Escalated to Dr Siegel. Anticipated level of care at discharge: [facility] ([facility]) Anticipated level of care provider: [facility] Anticipated Discharge Date: 02/18/24 Transportation at Discharge: other (TBD) Portions of this note have been copied from the medical record, but edited appropriately to accurately reflect the patient's current clinical state. Annamarie Bonilla RN Case Management - ICU 3[address] & 3[address] [facility] Ascom: [phone] O: [phone] * Macho Solis - 02/14/2024 1:48 PM CDT Physical Therapy ICU Treatment Chart reviewed for diagnosis and medical systems review. RN consented for PT. Explained purpose of PT and patient consented to participate in therapy. A??63 year old??male??was admitted with PMH of DM, HTN, alcohol abuse??who presented on 01/23/2024 10:27 AM??with chief complaint of unresponsiveness.??He was found down at his home by the recharger person he had scheduled to visit his home today. His last known well was not clear. I spoke with his sister who said they had not seen or spoken to him in the last 24 hrs. ??He??was able to follow some command upon arrival to the hospital but had a hard time moving his lower limbs. MRI brain stat was quickly obtained showing multiple infarcts in the brainstem includingthe left midbrain and left thalamus and right periventricular region. 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 Decision to take to IVR for exploration and potential management. He was intubated in the ER for airway protection.??CTH stable. Family reports L pupil has been larger for 2+months. Extubated 01/24. ?? Reported seizure activity on 01/26, started on Keppra. ??No further seizure since. 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 MRI 02/06 showed new infarcts/progression of old - indicated due to persistent poor mental status?? RECOMMENDATIONS/PLAN: continue acute PT services with progression of EOB/OOB activity as tolerated Progress standing in travis steady as tolerated?? PT Discharge Recommendations: Patient would benefit from intensive 3-hour multidisciplinary therapy This recommendation is made due to ongoing intensive PT functional needs: patient has the need for more than one skilled therapy service;motivated to participate in therapy;patient demonstrates a significant functional decline and would benefit from skilled therapy intervention to restore function;patient has the ability to progress and demonstrate measurable gains as a result of skilled therapy Recommended Transportation Method: Stretcher/Ambulance PPE worn by staff: gloves AM-PAC Basic mobility score for this patient is Mobility Raw Score:: 8 mRS prior: 0 mRS current: 5 Precautions: Full code,??Fall, SBP 120-180,??Trach, PEG, PIV,??Central line, Beltran, safety, soft wrist restraints, left eye Ptosis SUBJECTIVE:Subjective: Pt consented to therapy services Pain Assessment: Pain Location #1 Pain Scale/Observation: Behaviors Pain Rating Score #1: 0 Sedation Level #1: 1-Awake and alert OBJECTIVE: Cognition: Orientation Level: Unable to Obtain Cognition: Follows one step commands;Processing-delayed;Judgement-decreased Level of Consciousness-Adult: Alert;Eyes Open Spontaneously Participation: Active Participation ROM/Strength: L UE/LE WFL with cueing R UE limited with mod A and significant cueing to reach face R LE weak but able to move hip/knee/ankle against gravity at least 3/5 for mobility tasks this session Balance: Sitting - Static: Fair;Fair -;With Both Upper Extremity's Support Sitting - Dynamic: Fair -;With Both Upper Extremity's Support Bed Mobility: Rolling: Total Assistance Supine to Sit: Maximum Assistance;X 2 Sit to Supine: Total Assistance;X 2 Transfers: Sit to Stand: X 3;Maximum Assistance (with sarasteady) Stand to Sit: X 3;Maximum Assistance (with sarasteady) Bed to Chair: Total Assistance;X 3;Other (Comment) (x 1 RT managing vent) Type of Transfer: Lateral Transfer Transfer Device: Gait belt;Mechanical Stand;Other (see comment) (turn system) Mobility: Distance Ambulated (ft): 0 FEET Ambulation: Level of Assistance: Activity Does Not Occur Activity Tolerance: Activity Tolerance: Requires rest breaks Vital signs: BP taken on UE Vitals monitored and stable throughout session. SBP parameters 120-180 acknowledged and maintained. ASSESSMENT: Pt tolerated session well with stable vitals and denying dizziness, SOB, and other adverse s/s. RT present throughout session to manage vent. Pt's mentation stable from previous session. Pt remains with L eye ptosis and limited R side tracking, R side accurate with testing. Pt tolerated EOB ~10 minutes with ROM/strenght/balance activities. Pt able to hold sitting balance for prolonged periods with Mod I Using bed rail and UE support. Benefit from physical assist and cueing to lean forward, then was able to maintain balance. Performed sit <> stand x3 in travis steady for with PT behind to keep hips cleared, min Ax2 from other PT/OT. Final sit <> stand was held for 1 minute. Overall, pt remains pleasant and motivated with therapy despite significant decline in functional mobility with impairments of strength, ROM, endurance, safety awareness and activity tolerance. Pt continues to initiate with mobilization. Pt attentive and agreeable with therapy and all tasks asked of him making pt appropriate for rehab. Pt remains with decreased respiratory endurance with vent through a trach. RT ongoing SBT trials. Overall pt responds best to functional verbal cueing. Call light and phone in reach with alarm activated. All lines, monitors, IV's, equipment in place and intact pre and post visit. RN notified of patient's performance/location end of session. Pt educated in PT plan of care, fall precautions, and benefits of OOB activity. Refer to Plan of Care for PT goals. See Filed Flowsheet under Summary for further details. RECOMMENDATIONS/PLAN: Progress as tolerated. If this is the last Physical Therapy visit, this serves as the discharge summary. Davon THOMSA Ascom [phone] * Sherie Beltre MD - 02/14/2024 11:35 AM CDT INTERVENTIONAL STROKE NEUROLOGY PROGRESS NOTE Hospital Day: 22 A 63 year old male was admitted with PMH of DM, HTN, alcohol abuse who presented on 01/23/2024 10:27AM with chief complaint of unresponsiveness. He was found down at his home by the recharger person he had scheduled to visit his home today. His last known well was not clear. I spoke with his sister who said they had not seen or spoken to him in the last 24 hrs. He was able to follow some command upon arrival to the hospital but had a hard time moving his lower limbs. Suspicion of posterior circulation stroke was entertained. MRI brain stat was quickly obtained showing multiple infarcts in the brainstem including the left midbrain and left thalamus and right periventricular region. 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 Decision to take to IVRfor exploration and potential management. He was intubated in the ER for airway protection. CTH stable. Family reports L pupil has been larger for 2+months. Extubated 01/24. Reported seizure activity on 01/26, started on Keppra. No further seizure since. PEG placed for neurogenic dysphagia, TF restarted. Re- intubated and sedated on 02/01 due to respiratory failure. Trach placed. 02/14/2024: Patient in chair, alert and interactive. No reported pain. MEDICATIONS FOR CURRENT ENCOUNTER: SCHEDULED MEDICATIONS: 0.9% NaCl injection 3 mL, Intracatheter, q8h albuterol-ipratropium (Duo-Neb) nebulizer solution 3 mL, Inhalation, q6h amLODIPine (Norvasc) tablet 10 mg, Enteral Tube, QDAY aspirin chew tablet 81 mg, Enteral Tube, QDAY atorvastatin (Lipitor) tablet 40 mg, Enteral Tube, AT BEDTIME clopidogrel (plaVIX) tablet 75 mg, Enteral Tube, QDAY famotidine (Pepcid) tablet 20 mg, Enteral Tube, BID folic acid (Folvite) tablet 1 mg, Enteral Tube, QDAY furosemide (Lasix) injection 40 mg, Intravenous, BID heparin injection 5,000 Units, Subcutaneous, BID insulin aspart (NovoLOG) pen 0-18 Units, Subcutaneous, q6h insulin NPH pen 15 Units, Subcutaneous, q12h modafinil (Provigil) tablet 200 mg, Enteral Tube, QAM multiple vitamins with minerals tablet 1 tablet, Enteral Tube, QDAY senna-docusate (Senokot-S) tablet 2 tablet, Enteral Tube, BID sodium chloride 3 % nebulizer solution 3 mL, Inhalation, q6h thiamine (Vitamin B-1) tablet 100 mg, Enteral Tube, QDAY [COMPLETED] magnesium sulfate 2 g in 50 mL bolus, Intravenous, Once ??? [COMPLETED] metOLazone (Zaroxolyn) tablet 5 mg, Enteral Tube, Once ??? CONTINUOUS MEDICATIONS: PRN MEDICATIONS: Or Or 0.9% NaCl injection 1-10 mL, Intracatheter, PRN acetaminophen (Tylenol) tablet 650 mg, Enteral Tube, q4h PRN albuterol (Proventil;Ventolin) (2.5 MG/3ML) 0.083% nebulizer solution 2.5 mg, Inhalation, q4h PRN dextrose 10 % IV bolus, Intravenous, PRN dextrose 10 % IV bolus, Intravenous, PRN glucagon (Glucagen) injection 1 mg, Subcutaneous, PRN hydrALAZINE (Apresoline) injection 10 mg, Intravenous, q1h PRN ondansetron (Zofran) injection 4 mg, Intravenous, q4h PRN ??? prochlorperazine (Compazine) injection 10 mg, Intravenous, q4h PRN Peripheral IV Anterior;Right Forearm (Active) Placement Date/Time: 02/10/24 0700 Size (Gauge): 18 G Orientation: Anterior;Right Location: ForearmSite Prep: Chlorhexidine Technique: Ultrasound Guidance Insertion attempts (FOR ED ONLY): 1 Number of days: 4 Enteral - Percutaneous Endoscopic Gastrostomy Abdomen;Midline;Upper (Active) Placement Date/Time: 01/30/24 1514 Placed by: Dr. Ruffin Type: Percutaneous Endoscopic Gastrostomy Tube Location: Abdomen;Midline;Upper Size (FR): 20 Lot Number: [id number] Procedure Tolerance: Sedated Number of days: 14 Trach Bivona (Active) Placement Date/Time: 02/05/24 0800 Person who placed: robbin Brand: Bivona Airway Device: Cuffed Cuff Type: Water (Bivona) Trach size: 8 MM Number of days: 9 Indwelling Transurethral Urinary Catheter (Active) Placement Date/Time: 02/06/24 2330 Placed by: Melony Peterson Size (FR): 16 Catheter Balloon Size: 10 mL Closed System Maintained This Shift: Yes, Seal Intact Number of attempts: 1 Procedure Tolerance: Well Number of days: 7 BP 94/66 Pulse 78 Temp 98.2 ??F (36.8 ??C) (Axillary) Resp 17 Ht 1.93 m (6' 4 ) Wt 128.5 kg (283 lb 4.7 oz) SpO2 93% Wt Readings from Last 3 Encounters: 02/14/24 128.5 kg (283 lb 4.7 oz) 09/17/23 (!) 148.6 kg (327 lb 9.6 oz) 05/07/23 (!) 145.2 kg (320 lb) Multisystem Examination: Neck: Limited due to Trach Respiratory: No respiratory distress. Cardiovascular: Normal heart rate, Normal rhythm. GI: Soft, No tenderness Integument: Warm, Dry Neurological Examination: The patient is trached, eyes closed. Opens to verbal stimuli, and following commands. Speech is mouths words. L Pupils 4 non-reactive not responding to threat. Right pupil 3 mm reactive. Motor/Sensory: No involuntary movements were observed. Moving all limbs against gravity. Coordination: Unable to perform finger to nose. Gait: Not tested due to patient condition. Labs Recent Labs Component Name 02/04/24 0328 01/24/24 0443 07/23/20 0649 01/20/19 1134 CHOL - 229* 254* 258* TRIG 190* 179* 179* 63 HDL - 32* 48 63 LDLCALC - 161* 173* 179* Recent Labs Component Name 02/14/24 0429 02/13/24 0429 02/12/24 0458 02/08/24 1153 02/08/24 0526 01/31/24 1116 01/30/24 0429 01/29/24 0259 SODIUM 137 142 140 - 141 - 139 140 POTASSIUM 4.2 4.6 3.9 - 3.9 - 4.1 4.1 CHLORIDE 106 105 112* - 104 - 101 100 CO2 - - 27 BUN 36* 32* 27* - 38* - 17 15 CREATININE 0.85 0.79 0.82 - 0.95 - 0.80 0.74 GLUCOSE 182* 156* 166* - 178* - 146* 135* CALCIUM 9.2 8.7 9.3 - 9.7 - 9.6 9.3 ALBUMIN - - - - 2.1* - 2.7* 2.7* ALKPHOS - - - - 193* - 81 90 ALT - - - - 73* - 9 10 AST - - - - 62* - 14 14 TBIL - - - - 0.3 - 0.2 0.2 TPROT - - - - 8.0 - 7.8 8.2 EGFR >90 >90 >90 - 89* - >90 >90 - = values in this interval not displayed. Evaluation: CT head 01/22: 1. No acute intracranial hemorrhage. 2. Involutional changes with chronic lacunar infarctions and ischemic microangiopathy. 3. Age indeterminate infarction left thalamus and less likely a sequela of trans-synaptic degeneration. MRI brain if there is concern for acute ischemia. CT head 01/23: No acute intracranial hemorrhage. Stable chronic findings. CT angio: Short segment severe, string-like stenosis of the lower basilar artery just above the vertebral confluence. Cerebral Angiogram Impression 01/23/2024: A severe stenosis in the proximal basilar artery, s/p successful balloon angioplasty. Residual stenosis about 50% in lateral view MRI Brain: 1. New 11 x 6 mm acute infarction within the right periatrial white matter/major forceps. 2. There is expected evolution of previously demonstrated acute infarctions within the left thalamus and extending into the midbrain as well as the right frontal merchant radiata as compared with 01/23/2024. 3. Persistent global involutional changes, chronic right basal ganglia lacunar infarction and underlying ischemic microangiopathy. Echo: ??? Left??Ventricle: Left ventricle size is normal. Mildly to moderately increased wall thickness. Normal systolic function. EF 50-55%. Normal wall motion. Diastolic function is indeterminate. ??? Right??Ventricle: Right ventricle is not well visualized. ??? Aortic??Valve: Mild regurgitation. EKG: Results for orders placed or performed during the hospital encounter of 01/23/24 EKG 12-LEAD Result Value Ref Range Ventricular Rate 96 BPM Atrial Rate 96 BPM P-R Interval 146 ms QRS Duration ms 78 ms Q-T Interval ms 360 ms QTC Calculation (Bezet) 454 ms Calculated P [place] 79 degrees Calculated R [place] 76 degrees Calculated T [place] -77 degrees Interpretation EKG Normal sinus rhythm ST & T wave abnormality, consider inferolateral ischemia Abnormal ECG When compared with ECG of 26-JUL-2022 16:28, Premature ventricular complexes are no longer Present Non-specific change in ST segment in Anterior leads Inverted T waves have replaced nonspecific T wave abnormality in Inferior leads T wave amplitude has increased in Anterior leads Confirmed by JUSTICE PURVIS MD ([id number]) on 01/23/2024 2:35:44 PM Tele: Cardiac Rhythm: Sinus Rhythm (02/14/24 1200) LDL: Recent Labs Component Name 01/24/24 0443 07/23/20 0649 01/20/19 1134 LDLCALC 161* 173* 179* HgBA1C: Recent Labs Component Name 01/23/24 1039 09/17/23 1330 10/18/22 1045 HGBA1C 6.1* 6.5 5.9 Initial documented NIHSS Score: NIH Total: 13 (01/23/24 1048) Last Documented NIHSS Score: NIH Total: 16 (02/14/24 0800) Depression Screen Score = Does not meet criteria for screening: Intubation PHQ-2 PHQ-9 Therapy Recommendations: Discharge Discharge Equipment Recommendations: To Be Determined (02/14/24932) OT Discharge Recommendations: Patient would benefit from intensive 3-hour multidisciplinary therapy(02/14/24932) This recommendation is made due to ongoing intensive OT functional needs: ability to actively participate in intensive therapy 3 hours/day, 5 days a week;patient has the need for more than one skilled therapy service;motivated to participate in therapy;not at baseline due to impaired ability to complete ADL's;functional mobility is significantly below baseline;likely to return to the community atdischarge with support system;patient and/or caregiver require specialized training;patient has theability to progress and demonstrate measurable gains as a result of skilled therapy;patient demonstrates a significant functional decline and would benefit from skilled therapy intervention to restore function (02/14/24932) PT Discharge Recommendations: Patient would benefit from intensive 3-hour multidisciplinary therapy(02/14/24925) This recommendation is made due to ongoing intensive PT functional needs: patient has the need for more than one skilled therapy service;motivated to participate in therapy;patient demonstrates a significant functional decline and would benefit from skilled therapy intervention to restore function;patient has the ability to progress and demonstrate measurable gains as a result of skilled therapy (02/14/24925) Recommended Transportation Method: Stretcher/Ambulance (02/14/24932) Modified Mervin Score: Preadmission Modified [place] Score: 0 (01/26/24935) Current Modified [place] Score: 5 (02/14/24925) Procedures: Basilar artery??angioplasty 01/23/2024 PEG 01/30/24 Trach 02/05/2024 IMPRESSION - Acute ischemic stroke: Posterior circulation syndrome - 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 - Statin: Lipitor - VTE prevention with SCDs and Heparin - Allow permissive HTN - Maintain euglycemia, SSI - Off keppra now. Monitor for seizure activity. - PEG for nutrition and medication - PT/OT and speech therapy ongoing. - ICU for medical management. - LTACH placement pending - Wean vent as tolerated Travis Bhat, MSN, CORPORATE FINANCIAL ANALYST, MERCHANDISE FLOW MANAGER-C, SCRN, CNRN Interventional Vascular Neurology [facility] [place] [facility] #[id number] ATTESTATION I have seen and examined the patient with the nurse practitioner. I have re- confirmed the paula elements of the history and performed an examination. I have discussed the patient's care with the nurse practitioner. No new changes. Continues to make progress. Working with PT/OT/SP. Waiting on LTACH 02/14/2024 Sherie Beltre MD Interventional Vascular Neurology [facility] . * Federico Sloane, OT - 02/14/2024 10:31 AM CDT Occupational Therapy Treatment Summary: Chart reviewed for diagnosis and medical systems review. Nursing consented for OT. Explained purpose of OT and patient consented to participate in therapy. RECOMMENDATIONS/PLAN: Continue intensive skilled OT. Discharge Equipment Recommendations: To Be Determined OT Discharge Recommendations: Patient would benefit from intensive 3-hour multidisciplinary therapy This recommendation is made due to ongoing intensive OT functional needs: ability to actively participate in intensive therapy 3 hours/day, 5 days a week;patient has the need for more than one skilled therapy service;motivated to participate in therapy;not at baseline due to impaired ability to complete ADL's;functional mobility is significantly below baseline;likely to return to the community atdischarge with support system;patient and/or caregiver require specialized training;patient has theability to progress and demonstrate measurable gains as a result of skilled therapy;patient demonstrates a significant functional decline and would benefit from skilled therapy intervention to restore function Recommended Transportation Method: Stretcher/Ambulance PPE worn by staff: gloves PPE worn by patient: socks - clean;gown - patient, clean AM-PAC Daily Activity Raw Score:: 10 Precautions: Fall, Tele, Trach on vent, PEG, BUE soft wrist restraint, Beltran SUBJECTIVE: Pt supine in bed upon OT arrival, agreeable to OT tx session. Pt continues to be able to communicate via appropriate head nods yes / no, pt able to repeat words OT said this date. Hospital Day: Raza Vazquez is a 63 yom with histdory of CAD s/p CABG, obesity, HTN, HLD, DM II who presented to the ICU after an acute ischemic stroke. Timeline 01/22: Presented to ED after being found down. MRI with brainstem infarcts. 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 Transferred to ICU. 01/23: Sedation weaned. Following simple commands?? 01/24: Extubated 01/26: Worsening encephalopathy. cEEG initiated. Started on keppra. 01/27: EEG read normal 01/28: Transferred from ICU level of care to stroke service 01/29: PEG placed by GI 01/30: OOB to chair 02/01: Worsening mental status, not clearing secretions. ICU re-consulted. Intubated. 02/02: cont on vent support 02/03: consent obtained for trach. Cont TF and sedation. 02/04: tracheostomy 02/06: MRI for consistently poor mental status 02/07: started to wake and follow commands this AM. 02/08: cont vent weaning attempts. 02/09: trach exchanged for XLT bivona air 02/10: cont breathing trials. Tolerated ASV 02/11: tolerated SBT at 16/5 while up in combilizer. 02/13: con't PSV trials. Psychosocial: Patient Behaviors: Calm;Cooperative Family Behaviors: Calm;Cooperative Pain Assessment: Pain Location #1 Pain Scale/Observation: Behaviors Pain Rating Score #1: 0 OBJECTIVE: Cognition: Orientation Level: Unable to Obtain Cognition: Attention/concentration-decreased;Follows one step commands;Processing-delayed;Judgement-decreased;Safety awareness- decreased;Memory impairment-short term Attention Span: Attends with cues to redirect;Difficulty attending to directions Memory: Decreased recall of recent events;Decreased short term memory Following Commands: Follows one step commands with repetition/cues Safety Judgement: Decreased awareness of need for assistance Awareness of Errors: Assistance required to identify errors made;Assistance required to correct errors made Problem Solving: Assistance required to identify errors made;Assistance required to implement solutions ADLs/Functional Mobility: Bed Mobility: Rolling: Total Assistance Supine to Sit: Maximum Assistance;X 2 Sit to Supine: Total Assistance;X 2 Transfers: Sit to Stand: Maximum Assistance;X 3 Stand to Sit: Maximum Assistance;X 3 Bed to Chair: Total Assistance;X 3 Type of Transfer: Lateral Transfer Mobility; Distance Ambulated (ft): 0 FEET Ambulation: Level of Assistance: Activity Does Not Occur Balance: Sitting - Static: Fair;With Both Upper Extremity's Support Standing - Static: Poor Basic ADL: observation/clinical judgement Feeding: Total Assistance (PEG) Oral Facial Hygiene: Stand By Assist (LUE, MAX A RUE) Bathing: Maximal Assistance Upper Body Dressing: Maximal Assistance Lower Body Dressing: Total Assistance Toileting: Total Assistance ([place]) RUE Assessment: RUE Assessment AROM - Right Upper Extremity: Exceptions PROM - Right Upper Extremity: Within Functional Limits Strength - Right Upper Extremity: Exceptions Tone - Right Upper Extremity: Exceptions General RUE Tone: Hypotonic-Severe Sensation - Right Upper Extremity: Within Normal Limits Military Equipment Specialist Strength - Right Upper Extremity: 10/19 LUE Assessment: LUE Assessment AROM - Left Upper Extremity: Within Functional Limits PROM - Left Upper Extremity: Within Functional Limits Strength - Left Upper Extremity: Within Functional Limits Tone - Left Upper Extremity: Within Functional Limits Sensation - Left Upper Extremity: Within Normal Limits Military Equipment Specialist Strength - Left Upper Extremity: WFL Functional Level of Impairment: Functional Level of Comprehension: Moderate assistance (moderate prompting) pt expends 50-74% effort Functional Level of Expression: Moderate assistance (moderate prompting) pt expends 50-74% effort Functional Level of Social Interaction: Maximal assistance (maximum prompting) pt expends 25-49% effort Functional Level of Memory: Maximal assistance (maximum prompting) pt expends 25-49% effort Functional Level of Problem Solving: Maximal assistance (maximum prompting) pt expends 25-49% effort Activity tolerance/Oxygen Therapy: O2 L/M: 2 O2 % (FiO2): 21 % $ O2 DEVICE: Ventilator $ Modified [place] Score Current Modified [place] Score: 5 ASSESSMENT: Pt tolerates session fairly well this date. Pt does not appear to be in distress throughout, no signs pain, dizziness, SOB, or lightheadedness. RT present throughout to manage ventilator lines. Pt assisted from supine<>sit with MAX A x2, pt able to sit EOB approx. 15 minutes with MIN to SBA for balance. Pt cervical spine favors flexion, requires cues from OT to erect posture. Pt completes BUE / BLE therex from EOB, improvement in pt RUE AROM and strength. Pt able to complete AAROM [id number], serial opp, and high-fives. No signs of subluxation noted this date. Stiffness noted to start in elbow, educated RN and pt on necessity of PROM in RUE / RLE to prevent contractures. Travis steady placed in front of pt, pt able to reach and hold onto bar with appropriate machine pack assembler. Pt completes sit<>stand with MAX A x3, pt completes x3 trials and able to maintain standing approx. 10 seconds each time before requiring sit. Pt required tactile cues at hips, knees, and chest in order to promote midline, erect posture. Pt returned to supine nad straitened from bed>comblizer via lateral transfer assist x3. Pt sat up in chair, promoted WB on R elbow and LUE elevated. Pt able to complete oral facial hygiene with RUE and MAX A, pt able to cross midline from R>L and hand OT wash cloth. Pt noted to track through all quads this date, still poor attention to task howeverimprovement in alertness and participation since previous dates. Overall, pt making good progress towards goals, pt continues to be limited by decreased strength, AROM, motor planning, attention, vision, perception, balance, endurance, and pt would benefit from intensive therapies to maximize independence with ADLs and functional mobility. Please refer to the Filed Flowsheet for further details. Call light and phone in reach with chair alarm activated. All lines, monitors, IV's, equipment in place and intact pre and post visit. RN, Hamlet Patel, notified of patient's performance/location end of session. Educated patient/family in role of OT, goals of OT, benefits of OOB activity, transfers, ADLs, UE exercises, safety If this is the last OT visit, this note serves as the discharge summary. SHELLY Anton/Boris [phone] * Missy Vazquez, NETWORK RELATIONS CONSULTANT - 02/14/2024 9:34 AM CDT Speech Language Pathology: Chart reviewed. Pt requiring full vent support. Will continue to follow from a distance for appropriateness of PMSV and PO trials if/when he is able to wean from vent and tolerate cuff deflation and trach collar. Missy Carranza MS, CCC - NETWORK RELATIONS CONSULTANT 02/14/2024 9:35 AM [phone] * Andrea Zamorano MD - 02/14/2024 8:28 AM CDT ICU Progress Note Subjective: No acute events. Awake in convalizer. Answering questions and following commands. Subjective: Filed Vitals: 02/14/24 0745 02/14/24 0800 02/14/24 0815 02/14/24 0822 BP: (!) 178/102 127/89 Pulse: 78 81 82 Resp: 15 (!) 40 16 Temp: TempSrc: SpO2: 99% 98% 91% Weight: Height: Artificial airway None Physical Exam: GENERAL APPEARANCE: Acutely ill appearing EYE: extraocular eye movements intact HEENT: NCAT, MMM secretions improved. NECK: Supple Trach site CDI RESP: coarse to auscultation bilaterally. Referred vent sounds. CARDIO: Regular rate, rhythm without murmur. GI/AB: soft, nttp, normoactive bowel sounds SKIN: Normal to inspection. Warm, dry, supple, with no changes in moles or sores that will not heal. NEUROMUSC: withdraws to painful stimuli, moving left side purposefully, waking to verbal stimuli, smiling, answering yes/no questions. Moving right arm and more spontaneously. Output by Drain (mL) 02/12/24 0701 - 02/12/24 1900 02/12/24 190 - 02/13/24 0700 02/13/24 0701 - 02/13/24 1900 02/13/24 190 - 02/14/24 0700 02/14/24 0701 - 02/14/24 0828 Requested LDAs do not have output data documented. Peripheral IV Anterior;Right Forearm (Active) Placement Date/Time: 02/10/24 0700 Size (Gauge): 18 G Orientation: Anterior;Right Location: ForearmSite Prep: Chlorhexidine Technique: Ultrasound Guidance Insertion attempts (FOR ED ONLY): 1 Number of days: 4 Peripheral IV Posterior;Right Hand (Active) Placement Date/Time: 02/12/24 0500 Size (Gauge): 20 G Orientation: Posterior;Right Location: Hand Technique: Anatomical Landmarks Number of days: 2 Enteral - Percutaneous Endoscopic Gastrostomy Abdomen;Midline;Upper (Active) Placement Date/Time: 01/30/24 1514 Placed by: Dr. Ruffin Type: Percutaneous Endoscopic Gastrostomy Tube Location: Abdomen;Midline;Upper Size (FR): 20 Lot Number: [id number] Procedure Tolerance: Sedated Number of days: 14 Trach Bivona (Active) Placement Date/Time: 02/05/24 0800 Person who placed: robbin Brand: Bivona Airway Device: Cuffed Cuff Type: Water (Bivona) Trach size: 8 MM Number of days: 9 Indwelling Transurethral Urinary Catheter (Active) Placement Date/Time: 02/06/24 2330 Placed by: Melony Peterson Size (FR): 16 Catheter Balloon Size: 10 mL Closed System Maintained This Shift: Yes, Seal Intact Number of attempts: 1 Procedure Tolerance: Well Number of days: 7 Laboratory Results Reviewed Radiology Reviewed Assessment: Hospital Day: Raza Vazquez is a 63 yom with histdory of CAD s/p CABG, obesity, HTN, HLD, DM II who presented to the ICU after an acute ischemic stroke. Timeline 01/22: Presented to ED after being found down. MRI with brainstem infarcts. 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 Transferred to ICU. 01/23: Sedation weaned. Following simple commands 01/24: Extubated 01/26: Worsening encephalopathy. cEEG initiated. Started on keppra. 01/27: EEG read normal 01/28: Transferred from ICU level of care to stroke service 01/29: PEG placed by GI 01/30: OOB to chair 02/01: Worsening mental status, not clearing secretions. ICU re-consulted. Intubated. 02/02: cont on vent support 02/03: consent obtained for trach. Cont TF and sedation. 02/04: tracheostomy 02/06: MRI for consistently poor mental status 02/07: started to wake and follow commands this AM. 02/08: cont vent weaning attempts. 02/09: trach exchanged for XLT bivona air 02/10: cont breathing trials. Tolerated ASV 02/11: tolerated SBT at 16/5 while up in combilizer. 02/13: con't PSV trials. Plan: Respiratory: Acute hypoxic respiratory failure due to aspirations and acute ischemic stroke with poor secretion clearance - Lung protective ventilation with goal 6-8 cc/kg IBW - Maintain Drive pressure < 15, SaO2 > 90, HOB > 30 degrees, Plateau pressure < 30 cm H20 - Continue duonebs and hypertonic nebs -- Tracheostomy placed 02/04 - changed to hyperflex -- rest on vent qhs -- daily SAT and SBT trials. Aspiration PNA now with staph aureus on sputum - Completed 5 days of empiric ceftriaxone 01/27 - Sputum gram stain with MSSA; plan for 7 days of abx. 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 - Avoid sedating medications like benzos and antipsychotics, as much as possible. - PT/OT with early mobility as appropriate - No clinical signs of seizure activity. ID: Sepsis with pulmonary source - improving - sputum cx with MSSA - cont ancef - Continue to monitor WBC and fever curve. Renal: BOLA - improving Hyponatremia, hyperphosphatemia, NS as above. - cont trending labs - Strict Is and Os GI/Diet: Malnutrition Diagnosis Severe Protein Calorie malnutrition in context of acute disease or injury was present on admission.Diagnosis is made in consultation with clinical nutrition who have implemented a care plan. - cont TFs - Continue supplements Endo: DM II - Continue SSI Q 6 - NPH 15 u q12hr Heme: DVT ppx - SQ heparin Prognosis: fair Family updates: niece and nephew updated at bedside. Code Status: Full Code Disposition: Case management planning LTAC transfer. Auth pending Critical Care Time: I personally spent 40 minutes providing Critical Care services, time was exclusive to this patient and does not include time spent teaching or in procedures. Andrea Zamorano MD 02/14/24 8:28 AM Critical Care Medicine * Hamlet Patel RN - 02/14/2024 7:24 AM CDT Problem: Tobacco Use Goal: Inpatient tobacco-use cessation counseling participation Outcome: Progressing Problem: Fall Risk Goal: Patient will remain free of falls Outcome: Progressing Problem: Neurological Deficit Goal: Neurological status is stable or improving Outcome: Progressing Problem: Pain/Discomfort Goal: Patient exhibits reduced pain/discomfort as evidenced by pain scores Outcome: Progressing Goal: Patient uses pharmacological and non-pharmacological pain management strategies. Outcome: Progressing Goal: Patient verbalizes acceptable level of pain relief and ability to engage in desired activity. Outcome: Progressing Problem: Potential for Urinary Catheter-Associated Infection Goal: Signs and Symptoms of urinary catheter-associated infection are avoided Outcome: Progressing * Andrea Lance RCP - 02/14/2024 4:46 AM CDT Patient is mechanically ventilated mode APV/CMV RR 15 VT 520 PEEP 5 FIO2 28% Trach tube is 8.0 Bivona TTS Patient will continue to be ventilated. Will continue to SBT and assess as able. No SBT at this time per MD, due to patient being placed back on full support because of RR and low tidal volumes on ASV mode. * Rach London RN - 02/13/2024 8:29 PM CDT Problem: Fall Risk Goal: Patient will remain free of falls Outcome: Progressing Note: RAZA VAZQUEZ will have no falls this shift effective by frequent rounding and bed alarm when clinically relevant. Problem: Skin Integrity Goal: Skin integrity is maintained or improved Outcome: Progressing Note: RAZA VAZQUEZ will have no worsening or new skin breakdown this shift effective by turning. Turing necessity will be assessed due to patients functional status and Evan score. * Hamlet Patel RN - 02/13/2024 7:33 PM CDT Shift Summary Nursing [facility] 3S ICU Room: 24 Patient: Raza Vazquez Sex: male Age: [age] year old : 1960 [facility]#: [id number] Height: 193 cm (6' 4 ) Weight: 125 kg (275 lb 9.2 oz) Body mass index is 33.54 kg/m??. Code Status: Full Code Admit: 01/23/2024 Hospital Day: 21 Attending: Sherie Beltre MD Unit: [facility] 3S ICU Allergies Allergen Reactions ??? Lisinopril Angioedema ??? Pcn [Penicillins] Swelling eyes swelled shut 50 years ago ??? Penicillin V Rash Safety concerns: Choose Restraint type: Non-Violent Non-Violent Restraint Type Soft Wrist - Left (NV): CONTINUED Soft Wrist - Bilateral (NV): DISCONTINUED Past Medical/surgical History Past Medical History: Diagnosis Date ??? Anemia 01/2018 ??? Asthma (HCC) ??? Chest congestion 08/05/2020 ??? Confusional arousals 08/05/2020 ??? Controlled type 2 diabetes mellitus without complication, without long-term current use of insulin ([facility]) 09/28/2011 ??? 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 Cough syncope 2017 ??? Daytime sleepiness 08/05/2020 ??? Essential hypertension 01/23/2018 ??? Hyperlipidemia 08/05/2020 ??? Inadequate sleep hygiene 08/05/2020 ??? Morbid obesity with BMI of 40.0-44.9, adult ([facility]) 08/05/2020 ??? Nocturia 08/05/2020 ??? Obesity (BMI 30-39.9) 04/24/2012 ??? Other chest pain 09/04/2018 ??? S/P CABG x 3 01/24/2018 ??? Snoring 08/05/2020 ??? Superficial postoperative wound infection 02/23/2018 sternum ??? Wears glasses 08/05/2020 ??? Weight gain 08/05/2020 40# past 6-8 months-covid ??? Wound of sternal region 02/23/2018 Past Surgical History: Procedure Laterality Date ??? COLONOSCOPY N/A 11/12/2020 N/A; COLONOSCOPY SCREEN ??? Coronary Artery Bypass Graft N/A 01/24/2018 N/A; Coronary artery bypass graft x 3 ??? ENDOSCOPY, UPPER N/A 01/30/2024 N/A; ESOPHAGOGASTRODUODENOSCOPY (EGD) WITH PEG PLACEMENT ??? Tonsillectomy Vitals Temp: 97.8 ??F (36.6 ??C) Temp Source: Axillary Pulse: 86 Heart Rate Source: Monitor Resp: 20 BP: 130/89 MAP: 102 Arterial Line BP #1: 195/99 Art Line MAP #1: 133 mmHg Patient Vitals for the past 6 hrs: Pulse Resp BP 02/13/24 1900 86 20 130/89 02/13/24 1709 96 -- -- 02/13/24 1656 -- 26 -- 02/13/24 1359 83 14 -- Neurological Neurological Level of Consciousness-Adult: Eyes Open Spontaneously;Drowsy Orientation Level: Unable to Obtain Cognition: Follows one step commands;Judgement-decreased;Safety awareness-decreased;Attention/concentration-decreased Speech: Intubated/trached Vision: Partial hemianopia Pupil Size Right (MM): 2 Pupil Assessment Right: Sluggish;Round Pupil Size Left (MM): 4 Pupil Assessment Left: Nonreactive (fixed) Facial symmetry: Symmetrical RASS: RASS : Drowsy - Not fully alert, but has sustained awakening (eye- opening/eye contact) to voice (10 seconds or greater) to verbal stimulation Last Known Well: Initial documented NIHSS Score: NIH Total: 13 (01/23/24 1048) Last Documented NIHSS Score: NIH Total: 16 (02/13/24 0800) Neuromuscular Neuromuscular Motor Response RUE: Responds to commands;Spontaneous and Purposeful 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 Motor Function RUE: Cannot Overcome Resistance Sensation RUE: Unable to Obtain Motor Response LUE: Responds to commands;Spontaneous and Purposeful Left hand machine pack assembler: Weak Motor Function LUE: Can Overcome Resistance (Weak) Sensation LUE: Unable to Obtain Right foot dorsiflexion: Weak Right foot plantar flexion: Weak Motor Response RLE: Responds to commands;Spontaneous and Purposeful Motor Function RLE: Can Overcome Resistance (Weak) Sensation RLE: Unable to Obtain Left foot dorsiflexion: Weak Left foot plantar flexion: Weak Motor Response LLE: Responds to commands;Spontaneous and Purposeful Motor Function LLE: Can Overcome Resistance (Weak) Sensation LLE: Unable To Obtain Ataxia: Absent Cardiac Cardiac Monitoring Cardiac Rhythm: Sinus Rhythm Ectopy: None Ectopy Frequency: Rare Respiratory SPO2: SpO2: 95 % Monitor: Liters Per Minute: O2 L/M: 2 FIO2: O2 % (FiO2): 21 % Device: $ O2 DEVICE: Ventilator $ O2 % (FiO2): 21 % $ O2 DEVICE: Ventilator $ Incentive Spirometry Volume: # Attempts: Performance: Vent Settings Mechanical Ventilation VENT MODE: (S) ASV SET VENTILATION RATE (bpm): 15 bpm OBSERVED VENTILATION RATE (bpm): 18 bpm SET TIDAL VOLUME (mL): 520 ML EXHALED TIDAL VOLUME (ml): 341 ml Spontaneous Tidal Volume (mL): 499 ML Pressure Support: 12 cm H2O PEEP/CPAP: 5 cm H20 ETCO2 (mmHg): 34 mmHg OBSERVED PEAK INSPIRATORY PRESSURE (cm H2O): 24 cm H2O % MV: 100 % PEEP/CPAP: 5 cm H20 Pressure Support: 12 cm H2O Mean Airway Pressure (cm H2O): 11 cm H2O O2 %: 21 % ABG: Recent Labs Component Name 02/02/24 1609 07/26/22 1756 01/25/18 0026 PH 7.55* - 7.42 PCO2 32* - 38 PO2 394* - 82 HCO3 - - 24.3 - = values in this interval not displayed. ABG: Recent Labs Component Name 02/02/24 1609 01/27/24 1233 01/23/24 1714 [id number] 28.0* 28.5* 26.6* Gastric Intestinal Orders Placed This Encounter Procedures ??? DIET NPO Except: NO EXCEPTIONS Standing Status: Standing Number of Occurrences: 1 Order Specific Question: Except Answer: NO EXCEPTIONS ??? DIET TUBE FEEDING CONTINUOUS Standing Status: Standing Number of Occurrences: 1 Order Specific Question: Formula Type? Answer: VITAL AF 1.2 (ELEMENTAL) Order Specific Question: Route? Answer: PEG/G TUBE Order Specific Question: Goal Feeding (ml/hr): Answer: 75ML Order Specific Question: Flush Frequency: Answer: Every 4 hours Order Specific Question: Free Water Flush Amount in ml: Answer: 200 Order Specific Question: Protein Additives: Answer: 1 PROTEIN FLUSH/FEEDING TUBE DAILY DIET NPO Except: NO EXCEPTIONS DIET TUBE FEEDING CONTINUOUS Last BM (Date): 02/12/24 Feeding: Feeding: Completely dependent LBM: Last BM (Date): 02/12/24 Bowel Patern: Bowel Sounds: Bowel Sounds (All Quadrants): Active Stool Assessment Bowel Incontinence: No Stool Appearance : Loose Stool Color : Brown Stools (# of stools): 1 Stool Amount: Smear Urinary Urinary Urine Color: Yellow Urine Appearance: Clear Urine Odor: No Odor Urinary Symptoms: Catheter $ Bladder Scan Pre Void Volume: 246 ML [REMOVED] Condom Urinary Catheter 01/26/24 1441-Urine Output (catheter): 300 [REMOVED] External Urinary Device 01/27/24 1000-Urine Output (catheter): 150 [REMOVED] Condom Urinary Catheter 02/01/24 1410-Urine Output (catheter): 175 [REMOVED] Indwelling Transurethral Urinary Catheter-Urine Output (catheter): 100 [REMOVED] Indwelling Transurethral Urinary Catheter-Urine Output (catheter): 150 [REMOVED] Indwelling Transurethral Urinary Catheter-Urine Output (catheter): 85 Indwelling Transurethral Urinary Catheter-Urine Output (catheter): 50 Intake/Output Date 02/12/24 1500 - 02/13/24 0659 02/13/24 0700 - 02/14/24 0659 Shift 4345-3449 9484-7298 24 Hour Total 9679-0878 1504-2199 4618-3378 24 Hour Total INTAKE I.V.(mL/kg/hr) 241.3(0.2) 241.3(0.1) Tube 200 400 700 400 200 600 Enteral 300 1431 2331 626 300 926 Shift Total(mL/kg) 741.3(5.9) 1831(14.6) 3272.3(26.2) 1026(8.2) 500(4) 1526(12.2) OUTPUT Urine(mL/kg/hr) 385(0.4) 350(0.4) 1760(0.6) 525(0.5) 125 650 Shift Total(mL/kg) 385(3.1) 350(2.8) 1760(14.1) 525(4.2) 125(1) 650(5.2) NET 356.3 1481 1512.3 501 375 876 Weight (kg) 125.5 125 125 125 125 125 125 Cumulative Intake/Output Cumulative Intake: 3157 ML Cumulative Output: 905 ML Net Cumulative I/O: 2252 ML Skin Evan Score, Total Score: 16 Skin Condition: Swollen Hygiene Hygiene Hygiene: Bathed;Araceli care Hygiene Level of Assistance: Completely dependent Skin Care / Prevention: Float Heels;Positioning Device;Protective Dressing Oral Care: Performed Antimicrobial Skin Treatment: Yes Activity: Mobility Activity: In bed Repositioned: Supine;Semi Villegas's HOB Elevated (in degrees): HOB 30 Level of Assistance: Completely dependent Activity Assistive Device: Repositioning Device Distance Ambulated (ft): 0 FEET Ambulation Response: Tolerated - Fair Range of Motion: All Extremities;Active Anti-Embolism Interventions: Off Anti-embolism Mechanical Devices: Sequential compression devices Knee High Lines and Drains Peripheral IV Anterior;Right Forearm (Active) Placement Date/Time: 02/10/24 0700 Size (Gauge): 18 G Orientation: Anterior;Right Location: ForearmSite Prep: Chlorhexidine Technique: Ultrasound Guidance Insertion attempts (FOR ED ONLY): 1 Number of days: 3 Peripheral IV Posterior;Right Hand (Active) Placement Date/Time: 02/12/24 0500 Size (Gauge): 20 G Orientation: Posterior;Right Location: Hand Technique: Anatomical Landmarks Number of days: 1 Enteral - Percutaneous Endoscopic Gastrostomy Abdomen;Midline;Upper (Active) Placement Date/Time: 01/30/24 1514 Placed by: Dr. Ruffin Type: Percutaneous Endoscopic Gastrostomy Tube Location: Abdomen;Midline;Upper Size (FR): 20 Lot Number: [id number] Procedure Tolerance: Sedated Number of days: 14 Trach Bivona (Active) Placement Date/Time: 02/05/24 0800 Person who placed: robbin Brand: Bivona Airway Device: Cuffed Cuff Type: Water (Bivona) Trach size: 8 MM Number of days: 8 Indwelling Transurethral Urinary Catheter (Active) Placement Date/Time: 02/06/24 2330 Placed by: Melony Peterson Size (FR): 16 Catheter Balloon Size: 10 mL Closed System Maintained This Shift: Yes, Seal Intact Number of attempts: 1 Procedure Tolerance: Well Number of days: 6 Continuous Medications Labs Recent Labs Component Name 02/13/24 0429 02/12/24 0458 02/11/24 0402 02/08/24 1153 02/08/24 0526 01/31/24 1116 01/30/24 0429 01/29/24 0259 SODIUM 142 140 141 - 141 - 139 140 POTASSIUM 4.6 3.9 4.4 - 3.9 - 4.1 4.1 CHLORIDE 105 112* 113* - 104 - 101 100 CO2 24 24 23 - 24 - 26 27 BUN 32* 27* 31* - 38* - 17 15 CREATININE 0.79 0.82 0.75 - 0.95 - 0.80 0.74 GLUCOSE 156* 166* 178* - 178* - 146* 135* CALCIUM 8.7 9.3 9.5 - 9.7 - 9.6 9.3 ALBUMIN - - - - 2.1* - 2.7* 2.7* ALKPHOS - - - - 193* - 81 90 ALT - - - - 73* - 9 10 AST - - - - 62* - 14 14 TBIL - - - - 0.3 - 0.2 0.2 TPROT - - - - 8.0 - 7.8 8.2 EGFR >90 >90 >90 - 89* - >90 >90 - = values in this interval not displayed. Narrative Pt alert follows commands NIH 16 Up in combo chair x 6 hours Decreased urine output MD michael Beltran remains restraints remain Family updated Hamlet Patel RN 02/13/2024 7:33 PM This note is only as accurate as the information entered into [employer]!. Be sure to review Orders and MAR for additional information * Sejal Bautista RCP - 02/13/2024 6:29 PM CDT Mr Vazquez continues on mechanical ventilation with settings of Mode ASV 80%, PEEP 5, FiO2 21%. * Macho Solis - 02/13/2024 1:11 PM CDT Physical Therapy ICU Treatment Chart reviewed for diagnosis and medical systems review. RN consented for PT. Explained purpose of PT and patient consented to participate in therapy. A??63 year old??male??was admitted with PMH of DM, HTN, alcohol abuse??who presented on 01/23/2024 10:27 AM??with chief complaint of unresponsiveness.??He was found down at his home by the recharger person he had scheduled to visit his home today. His last known well was not clear. I spoke with his sister who said they had not seen or spoken to him in the last 24 hrs. ??He??was able to follow some command upon arrival to the hospital but had a hard time moving his lower limbs. MRI brain stat was quickly obtained showing multiple infarcts in the brainstem includingthe left midbrain and left thalamus and right periventricular region. 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 Decision to take to IVR for exploration and potential management. He was intubated in the ER for airway protection.??CTH stable. Family reports L pupil has been larger for 2+months. Extubated 01/24. ?? Reported seizure activity on 01/26, started on Keppra. ??No further seizure since. 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 MRI 02/06 showed new infarcts/progression of old - indicated due to persistent poor mental status?? RECOMMENDATIONS/PLAN: continue acute PT services with progression of EOB/OOB activity as tolerated Progress standing in travis steady as tolerated PT Discharge Recommendations: Patient would benefit from intensive 3-hour multidisciplinary therapy This recommendation is made due to ongoing intensive PT functional needs: patient has the need for more than one skilled therapy service;motivated to participate in therapy;patient demonstrates a significant functional decline and would benefit from skilled therapy intervention to restore function;patient has the ability to progress and demonstrate measurable gains as a result of skilled therapy Recommended Transportation Method: Stretcher/Ambulance PPE worn by staff: gloves AM-PAC Basic mobility score for this patient is Mobility Raw Score:: 8 Precautions: Full code,??Fall, SBP 120-180,??Trach, PEG, PIV,??Central line, Beltran, safety, left soft wrist restraint, left eye Ptosis SUBJECTIVE:Subjective: Pt consented to therapy services Pain Assessment: Pain Location #1 Pain Scale/Observation: Behaviors Pain Rating Score #1: 0 Sedation Level #1: 1-Awake and alert OBJECTIVE: Cognition: Orientation Level: Unable to Obtain Cognition: Follows one step commands;Processing-delayed;Judgement-decreased Level of Consciousness-Adult: Alert;Eyes Open Spontaneously Participation: Active Participation ROM/Strength: L UE/LE WFL with cueing R UE limited with mod A and significant cueing to reach face R LE weak but able to move hip/knee/ankle against gravity at least 3/5 for mobility tasks this session Balance: Sitting - Static: Fair +;With Both Upper Extremity's Support Sitting - Dynamic: Fair;With Both Upper Extremity's Support Bed Mobility: Rolling: Total Assistance Supine to Sit: Maximum Assistance;X 2 Sit to Supine: Total Assistance;X 2 Transfers: Sit to Stand: Maximum Assistance;X 3 (in sarasteady) Stand to Sit: Maximum Assistance;X 3 (in sarasteady) Bed to Chair: Total Assistance;X 3;Other (Comment) (x1 RT managing vent) Type of Transfer: Lateral Transfer Transfer Device: Other (see comment) (turn system) Mobility: Distance Ambulated (ft): 0 FEET Ambulation: Level of Assistance: Activity Does Not Occur Activity Tolerance: Activity Tolerance: Requires rest breaks Vital signs: BP taken on UE Notes from Vital Signs: Vitals monitored throughout stable and asymptomatic. BP within parameters. BP taken immediately after standing, negative orthostatic. ASSESSMENT: Pt tolerated session well with stable vitals and denying dizziness, SOB, and other adverse s/s. RT present throughout session to manage vent. Pt's mentation stable from previous session. Pt remains with L eye ptosis and limited R side tracking, R side accurate with testing. Pt tolerated initial sit <> stand x1 in sarasteady with ability to initiate but then requiring physical assist of 3 with RT managing vent. One PT behind to assist bottom, one PT assisting trunk/weight through gait belt, OT assisting LEs. Performed sit <> stand x2 in travis steady for one minute with PT behind to keep hips cleared, min Ax2 from other PT/OT. Pt left up in combolizer in care of RN at end of session for sitting tolerance, L wrist restraint replaced. Overall, pt remains pleasant and motivated with therapy despite significant decline in functional mobility with impairments of strength, ROM, endurance, safety awareness and activity tolerance. Pt continues to initiate with mobilization. Pt attentive and agreeable with therapy and all tasks asked of him. Pt remains with decreased respiratory endurance with vent through a trach. Call light and phone in reach with alarm activated. All lines, monitors, IV's, equipment in place and intact pre and post visit. RN notified of patient's performance/location end of session. Pt educated in PT plan of care, fall precautions, and benefits of OOB activity. Refer to Plan of Care for PT goals. See Filed Flowsheet under Summary for further details. RECOMMENDATIONS/PLAN: Progress as tolerated. If this is the last Physical Therapy visit, this serves as the discharge summary. Davon SPT Ascom [phone] * Leigh Gonzalez, OT - 02/13/2024 12:18 PM CDT Occupational Therapy Treatment Summary: Chart reviewed for diagnosis and medical systems review. Nursing consented for OT. Explained purpose of OT and patient consented to participate in therapy. RECOMMENDATIONS/PLAN: Address pt's hand-eye coordination via functional EOB tasks. Continue to WB through B UE EOB, and complete self care tasks. OT Discharge Recommendations: Patient would benefit from intensive 3-hour multidisciplinary therapy This recommendation is made due to ongoing intensive OT functional needs: ability to actively participate in intensive therapy 3 hours/day, 5 days a week;patient has the need for more than one skilled therapy service;motivated to participate in therapy;not at baseline due to impaired ability to complete ADL's;functional mobility is significantly below baseline;likely to return to the community atdischarge with support system;patient and/or caregiver require specialized training;patient has theability to progress and demonstrate measurable gains as a result of skilled therapy;patient demonstrates a significant functional decline and would benefit from skilled therapy intervention to restore function Recommended Transportation Method: Stretcher/Ambulance PPE worn by staff: gloves PPE worn by patient: gown - patient, clean;socks - clean AM-PAC is Daily Activity Raw Score:: 9 Precautions: Fall Skin PIV x 2 PEG Beltran Vent-trach Aspiration SUBJECTIVE: Pt presented semi-villegas's in bed, agreeable to this date's session. Psychosocial: Patient Behaviors: Calm;Cooperative Patient's Goal for the Day: Not reported, nursing requested pt end therapy in combilizer Pain Assessment: Pain Location #1 Pain Scale/Observation: Behaviors Pain Rating Score #1: 0 Sedation Level #1: 1-Awake and alert OBJECTIVE: Cognition: Orientation Level: Unable to Obtain Cognition: Follows Commands-inconsistent;Processing-delayed;Judgement-decreased;Attention/concentra tion-decreased ADLs/Functional Mobility: Bed Mobility: Supine to Sit: Maximum Assistance;X 2 Sit to Supine: Total Assistance;X 2 Transfers: Sit to Stand: X 3;Maximum Assistance (utilizing Travis Stejaycee) Stand to Sit: X 3;Maximum Assistance Type of Transfer: Lateral Transfer Basic ADL: observation/clinical judgement Feeding: Total Assistance (PEG) Oral Facial Hygiene: Maximal Assistance Bathing: Maximal Assistance Upper Body Dressing: Maximal Assistance Lower Body Dressing: Total Assistance Toileting: Total Assistance RUE Assessment: RUE Assessment AROM - Right Upper Extremity: Exceptions PROM - Right Upper Extremity: Within Functional Limits Strength - Right Upper Extremity: Exceptions Tone - Right Upper Extremity: Exceptions General RUE Tone: Hypotonic-Moderate Sensation - Right Upper Extremity: Within Normal Limits Military Equipment Specialist Strength - Right Upper Extremity: 10/19 LUE Assessment: LUE Assessment AROM - Left Upper Extremity: Exceptions PROM - Left Upper Extremity: Within Functional Limits Strength - Left Upper Extremity: Exceptions Tone - Left Upper Extremity: Within Functional Limits Sensation - Left Upper Extremity: Within Normal Limits Military Equipment Specialist Strength - Left Upper Extremity: 12/17 Functional Level of Impairment: Functional Level of Comprehension: Moderate assistance (moderate prompting) pt expends 50-74% effort Functional Level of Expression: Moderate assistance (moderate prompting) pt expends 50-74% effort Functional Level of Social Interaction: Maximal assistance (maximum prompting) pt expends 25-49% effort Functional Level of Memory: Maximal assistance (maximum prompting) pt expends 25-49% effort Functional Level of Problem Solving: Maximal assistance (maximum prompting) pt expends 25-49% effort Vital signs: BP taken on R UE Before mobility During mobility After mobility BP 141/90 (107) 142/93 (109) 123/84 (97) HR (bpm) 85 90 90 RR (breaths/min) 23 23 18 SpO2 (%) 92 97 93 LPM 2 2 2 O2 source Vent/trach Vent/trach Vent/trach Position Semi-villegas's EOB Seated in combilizer Notes from Vital Signs: Pt remained hemodynamically stable when transferring semi-villegas's to EOB. Activity tolerance/Oxygen Therapy: Activity Tolerance: Requires rest breaks O2 L/M: 2 $ O2 DEVICE: Ventilator $ Modified [place] Score Current Modified [place] Score: 5 ASSESSMENT: Pt consented to complete this date's OT treatment session. OT observed and assessed pt's vitals, ROM and strength of B UE, functional transfers and mobility, LB dressing, bed mobility. Pttolerated this 's session well this date. Pt continues to require MAX to total A x 2-3 people to complete bed mobility and sit <> stand transfers within Travis Stedy. Pt tolerated sitting EOBfor approx 6 minutes, while participating in AROM exercises of B UE and LE as preparatory activity.Pt continues to demonstrate limited ROM, strength, and tone within R UE. Pt able to perform composite flexion within B hands. Pt unable to actively raise R UE to touch mouth/nose, receiving MAX proximal and distal support. Pt demo ability to itch nose with L UE, but presented with difficulty when prompted to touch index finger to therapist's finger (approx 1.5 feet from pt). Pt received MAX A to wash face this date. Pt presented with diaphoresis with mobilization and transfer completion this date. Pt stood 3x within Travis Stedy (approx 1 minute each stand), with MAX A x3 to maintain upright standing posture. Pt demo ability to WB through B UE and LE this date without knee buckling. Pt transferred to supine > combilizer at end of session with total A x3. Pt's vitals remained stable during positional changes this date. Pt presents functional deficits in ADL tasks, mobility, transfers, ac tivity tolerance, endurance, strength, cognition, which prevent them from returning to PLOF. Pt agreeable to continued OT services, and would benefit from continued skilled OT services to increase functional performance and independence to increase quality of life. Please refer to the Filed Flowsheet for further details. Call light and phone in reach with pt seated upright in combilizer. All lines, monitors, IV's, equipment in place and intact pre and post visit. RNHamlet, notified of patient's performance/location end of session. RT present to assist and manage pt's vent/trach. Educated patient/family in OT plan of care, role, functional re-training for tasks, and need for ongoing OT services. If this is the last OT visit, this note serves as the discharge summary. Kerry BRAVO/Boris X [phone] * Sherie Beltre MD - 02/13/2024 11:56 AM CDT INTERVENTIONAL STROKE NEUROLOGY PROGRESS NOTE Hospital Day: 21 A 63 year old male was admitted with PMH of DM, HTN, alcohol abuse who presented on 01/23/2024 10:27AM with chief complaint of unresponsiveness. He was found down at his home by the recharger person he had scheduled to visit his home today. His last known well was not clear. I spoke with his sister who said they had not seen or spoken to him in the last 24 hrs. He was able to follow some command upon arrival to the hospital but had a hard time moving his lower limbs. Suspicion of posterior circulation stroke was entertained. MRI brain stat was quickly obtained showing multiple infarcts in the brainstem including the left midbrain and left thalamus and right periventricular region. 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 Decision to take to IVRfor exploration and potential management. He was intubated in the ER for airway protection. CTH stable. Family reports L pupil has been larger for 2+months. Extubated 01/24. Reported seizure activity on 01/26, started on Keppra. No further seizure since. PEG placed for neurogenic dysphagia, TF restarted. Re- intubated and sedated on 02/01 due to respiratory failure. Trach placed. 02/13/2024: Patient in chair, eyes closed. No reported concerns per nursing. Reported did good on SBTlast night. MEDICATIONS FOR CURRENT ENCOUNTER: SCHEDULED MEDICATIONS: 0.9% NaCl injection 3 mL, Intracatheter, q8h albuterol-ipratropium (Duo-Neb) nebulizer solution 3 mL, Inhalation, q6h amLODIPine (Norvasc) tablet 10 mg, Enteral Tube, QDAY aspirin chew tablet 81 mg, Enteral Tube, QDAY atorvastatin (Lipitor) tablet 40 mg, Enteral Tube, AT BEDTIME atropine 1 % ophthalmic solution 1 drop, Sublingual, q8h clopidogrel (plaVIX) tablet 75 mg, Enteral Tube, QDAY famotidine (Pepcid) tablet 20 mg, Enteral Tube, BID folic acid (Folvite) tablet 1 mg, Enteral Tube, QDAY guaiFENesin (Robitussin) solution 10 mL, Enteral Tube, q6h heparin injection 5,000 Units, Subcutaneous, BID Hydrocod Nikhil-Chlorphe Nikhil ER (Tussionex) suspension 5 mL, Enteral Tube, q12h insulin aspart (NovoLOG) pen 0-18 Units, Subcutaneous, q6h insulin NPH pen 15 Units, Subcutaneous, q12h modafinil (Provigil) tablet 200 mg, Enteral Tube, QAM multiple vitamins with minerals tablet 1 tablet, Enteral Tube, QDAY sodium chloride 3 % nebulizer solution 3 mL, Inhalation, q6h thiamine (Vitamin B-1) tablet 100 mg, Enteral Tube, QDAY [COMPLETED] 0.9% NaCl IV bolus, Intravenous, Once [COMPLETED] ceFAZolin (Ancef) 2 g in 0.9% NaCl IV 50 mL IVPB, Intravenous, q8h [COMPLETED] furosemide (Lasix) injection 20 mg, Intravenous, Once ??? [COMPLETED] magnesium sulfate 2 g in 50 mL bolus, Intravenous, Once ??? CONTINUOUS MEDICATIONS: PRN MEDICATIONS: Or Or 0.9% NaCl injection 1-10 mL, Intracatheter, PRN acetaminophen (Tylenol) tablet 650 mg, Enteral Tube, q4h PRN albuterol (Proventil;Ventolin) (2.5 MG/3ML) 0.083% nebulizer solution 2.5 mg, Inhalation, q4h PRN dextrose 10 % IV bolus, Intravenous, PRN dextrose 10 % IV bolus, Intravenous, PRN glucagon (Glucagen) injection 1 mg, Subcutaneous, PRN hydrALAZINE (Apresoline) injection 10 mg, Intravenous, q1h PRN ondansetron (Zofran) injection 4 mg, Intravenous, q4h PRN ??? prochlorperazine (Compazine) injection 10 mg, Intravenous, q4h PRN Peripheral IV Anterior;Right Forearm (Active) Placement Date/Time: 02/10/24 0700 Size (Gauge): 18 G Orientation: Anterior;Right Location: ForearmSite Prep: Chlorhexidine Technique: Ultrasound Guidance Insertion attempts (FOR ED ONLY): 1 Number of days: 3 Peripheral IV Posterior;Right Hand (Active) Placement Date/Time: 02/12/24 0500 Size (Gauge): 20 G Orientation: Posterior;Right Location: Hand Technique: Anatomical Landmarks Number of days: 1 Enteral - Percutaneous Endoscopic Gastrostomy Abdomen;Midline;Upper (Active) Placement Date/Time: 01/30/24 1514 Placed by: Dr. Ruffin Type: Percutaneous Endoscopic Gastrostomy Tube Location: Abdomen;Midline;Upper Size (FR): 20 Lot Number: [id number] Procedure Tolerance: Sedated Number of days: 13 Trach Bivona (Active) Placement Date/Time: 02/05/24 0800 Person who placed: robbin Brand: Bivona Airway Device: Cuffed Cuff Type: Water (Bivona) Trach size: 8 MM Number of days: 8 Indwelling Transurethral Urinary Catheter (Active) Placement Date/Time: 02/06/24 2330 Placed by: Melony Peterson Size (FR): 16 Catheter Balloon Size: 10 mL Closed System Maintained This Shift: Yes, Seal Intact Number of attempts: 1 Procedure Tolerance: Well Number of days: 6 BP 114/76 Pulse 77 Temp 98.1 ??F (36.7 ??C) (Axillary) Resp 17 Ht 1.93 m (6' 4 ) Wt 125 kg (275 lb 9.2 oz) SpO2 97% Wt Readings from Last 3 Encounters: 02/13/24 125 kg (275 lb 9.2 oz) 09/17/23 (!) 148.6 kg (327 lb 9.6 oz) 05/07/23 (!) 145.2 kg (320 lb) Multisystem Examination: Neck: Limited due to Trach Respiratory: No respiratory distress. Cardiovascular: Normal heart rate, Normal rhythm. GI: Soft, No tenderness Integument: Warm, Dry Neurological Examination: The patient is trached, eyes closed. Opens to verbal stimuli, and following commands. Speech is mouths words. L Pupils 4 non-reactive not responding to threat. Right pupil 3 mm reactive. Motor/Sensory: No involuntary movements were observed. Moving all limbs against gravity. Coordination: Unable to perform finger to nose. Gait: Not tested due to patient condition. Labs Recent Labs Component Name 02/04/24 0328 01/24/24 0443 07/23/20 0649 01/20/19 1134 CHOL - 229* 254* 258* TRIG 190* 179* 179* 63 HDL - 32* 48 63 LDLCALC - 161* 173* 179* Recent Labs Component Name 02/13/24 0429 02/12/24 0458 02/11/24 0402 02/08/24 1153 02/08/24 0526 01/31/24 1116 01/30/24 0429 01/29/24 0259 SODIUM 142 140 141 - 141 - 139 140 POTASSIUM 4.6 3.9 4.4 - 3.9 - 4.1 4.1 CHLORIDE 105 112* 113* - 104 - 101 100 CO2 24 24 23 - 24 - 26 27 BUN 32* 27* 31* - 38* - 17 15 CREATININE 0.79 0.82 0.75 - 0.95 - 0.80 0.74 GLUCOSE 156* 166* 178* - 178* - 146* 135* CALCIUM 8.7 9.3 9.5 - 9.7 - 9.6 9.3 ALBUMIN - - - - 2.1* - 2.7* 2.7* ALKPHOS - - - - 193* - 81 90 ALT - - - - 73* - 9 10 AST - - - - 62* - 14 14 TBIL - - - - 0.3 - 0.2 0.2 TPROT - - - - 8.0 - 7.8 8.2 EGFR >90 >90 >90 - 89* - >90 >90 - = values in this interval not displayed. Evaluation: CT head 01/22: 1. No acute intracranial hemorrhage. 2. Involutional changes with chronic lacunar infarctions and ischemic microangiopathy. 3. Age indeterminate infarction left thalamus and less likely a sequela of trans-synaptic degeneration. MRI brain if there is concern for acute ischemia. CT head 01/23: No acute intracranial hemorrhage. Stable chronic findings. CT angio: Short segment severe, string-like stenosis of the lower basilar artery just above the vertebral confluence. Cerebral Angiogram Impression 01/23/2024: A severe stenosis in the proximal basilar artery, s/p successful balloon angioplasty. Residual stenosis about 50% in lateral view MRI Brain: 1. New 11 x 6 mm acute infarction within the right periatrial white matter/major forceps. 2. There is expected evolution of previously demonstrated acute infarctions within the left thalamus and extending into the midbrain as well as the right frontal merchatn radiata as compared with 01/23/2024. 3. Persistent global involutional changes, chronic right basal ganglia lacunar infarction and underlying ischemic microangiopathy. Echo: ??? Left??Ventricle: Left ventricle size is normal. Mildly to moderately increased wall thickness. Normal systolic function. EF 50-55%. Normal wall motion. Diastolic function is indeterminate. ??? Right??Ventricle: Right ventricle is not well visualized. ??? Aortic??Valve: Mild regurgitation. EKG: Results for orders placed or performed during the hospital encounter of 01/23/24 EKG 12-LEAD Result Value Ref Range Ventricular Rate 96 BPM Atrial Rate 96 BPM P-R Interval 146 ms QRS Duration ms 78 ms Q-T Interval ms 360 ms QTC Calculation (Bezet) 454 ms Calculated P [place] 79 degrees Calculated R [place] 76 degrees Calculated T [place] -77 degrees Interpretation EKG Normal sinus rhythm ST & T wave abnormality, consider inferolateral ischemia Abnormal ECG When compared with ECG of 26-JUL-2022 16:28, Premature ventricular complexes are no longer Present Non-specific change in ST segment in Anterior leads Inverted T waves have replaced nonspecific T wave abnormality in Inferior leads T wave amplitude has increased in Anterior leads Confirmed by JUSTICE PURVIS MD ([id number]) on 01/23/2024 2:35:44 PM Tele: Cardiac Rhythm: Sinus Rhythm (02/13/24 0800) LDL: Recent Labs Component Name 01/24/24 0443 07/23/20 0649 01/20/19 1134 LDLCALC 161* 173* 179* HgBA1C: Recent Labs Component Name 01/23/24 1039 09/17/23 1330 10/18/22 1045 HGBA1C 6.1* 6.5 5.9 Initial documented NIHSS Score: NIH Total: 13 (01/23/24 1048) Last Documented NIHSS Score: NIH Total: 16 (02/13/24 0800) Depression Screen Score = Does not meet criteria for screening: Intubation PHQ-2 PHQ-9 Therapy Recommendations: Discharge Discharge Equipment Recommendations: To Be Determined (02/12/24 1200) OT Discharge Recommendations: Patient would benefit from intensive 3-hour multidisciplinary therapy(02/12/24 1200) This recommendation is made due to ongoing intensive OT functional needs: ability to actively participate in intensive therapy 3 hours/day, 5 days a week;patient has the need for more than one skilled therapy service;motivated to participate in therapy;not at baseline due to impaired ability to complete ADL's;functional mobility is significantly below baseline;likely to return to the community atdischarge with support system;patient and/or caregiver require specialized training;patient has theability to progress and demonstrate measurable gains as a result of skilled therapy;patient demonstrates a significant functional decline and would benefit from skilled therapy intervention to restore function (02/12/24 1200) PT Discharge Recommendations: Patient would benefit from intensive 3-hour multidisciplinary therapy(02/12/24 1152) This recommendation is made due to ongoing intensive PT functional needs: patient has the need for more than one skilled therapy service;motivated to participate in therapy;patient demonstrates a significant functional decline and would benefit from skilled therapy intervention to restore function;patient has the ability to progress and demonstrate measurable gains as a result of skilled therapy (02/12/24 1152) Recommended Transportation Method: Stretcher/Ambulance (02/12/24 1200) Modified [place] Score: Preadmission Modified [place] Score: 0 (01/26/24 0936) Current Modified [place] Score: 5 (02/12/24 115) Procedures: Basilar artery??angioplasty 01/23/2024 PEG 01/30/24 Trach 02/05/2024 IMPRESSION - Acute ischemic stroke: Posterior circulation syndrome - 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 - Statin: Lipitor - VTE prevention with SCDs and Heparin - Allow permissive HTN - Maintain euglycemia, SSI - Off keppra now. Monitor for seizure activity. - PEG for nutrition and medication - PT/OT and speech therapy ongoing. - ICU for medical management. - LTACH placement pending - Wean vent as tolerated Travis Bhat, MSN, CORPORATE FINANCIAL ANALYST, MERCHANDISE FLOW MANAGER-C, SCRN, CNRN Interventional Vascular Neurology [facility] #[id number] ATTESTATION I have seen and examined the patient with the nurse practitioner. I have re- confirmed the paula elements of the history and performed an examination. I have discussed the patient's care with the nurse practitioner. Pt is doing well, he is tolerating sitting up in the chair. He is working with PT/OT. He will need LTACH. Pending authorization 02/13/2024 Sherie Beltre MD Interventional Vascular Neurology [facility] . * Travis Dubose RD/HAFSA - 02/13/2024 10:30 AM CDT CLINICAL NUTRITION Pt discussed in rounds today. Pt remains on the vent via trach. Tolerating TF via PEG per nurse. Free water flushes were increased to 200 ml q4hr yesterday and given fluid bolus d/t decreased UOP. Only smear BM since FMS was removed. Labs reviewed. Current diet order: NPO Current tube feeding order: Vital 1.2 at 75 ml/hr, water flush per MD / 1 protein additive daily (2160 kcal, 135 g pro, 1460 ml free water / 60 kcal, 15 g pro from additive) MEDICATIONS FOR CURRENT ENCOUNTER: ?? SCHEDULED MEDICATIONS: ?? 0.9% NaCl injection 3 mL, Intracatheter, q8h ?? albuterol-ipratropium (Duo-Neb) nebulizer solution 3 mL, Inhalation, q6h ?? amLODIPine (Norvasc) tablet 10 mg, Enteral Tube, QDAY ?? aspirin chew tablet 81 mg, Enteral Tube, QDAY ?? atorvastatin (Lipitor) tablet 40 mg, Enteral Tube, AT BEDTIME ?? atropine 1 % ophthalmic solution 1 drop, Sublingual, q8h ?? clopidogrel (plaVIX) tablet 75 mg, Enteral Tube, QDAY ?? famotidine (Pepcid) tablet 20 mg, Enteral Tube, BID ?? folic acid (Folvite) tablet 1 mg, Enteral Tube, QDAY ?? guaiFENesin (Robitussin) solution 10 mL, Enteral Tube, q6h ?? heparin injection 5,000 Units, Subcutaneous, BID ?? Hydrocod Nikhil-Chlorphe Nikhil ER (Tussionex) suspension 5 mL, Enteral Tube, q12h ?? insulin aspart (NovoLOG) pen 0-18 Units, Subcutaneous, q6h ?? insulin NPH pen 15 Units, Subcutaneous, q12h ?? modafinil (Provigil) tablet 200 mg, Enteral Tube, QAM ?? multiple vitamins with minerals tablet 1 tablet, Enteral Tube, QDAY ?? sodium chloride 3 % nebulizer solution 3 mL, Inhalation, q6h ?? thiamine (Vitamin B-1) tablet 100 mg, Enteral Tube, QDAY ?? [COMPLETED] 0.9% NaCl IV bolus, Intravenous, Once ?? [COMPLETED] ceFAZolin (Ancef) 2 g in 0.9% NaCl IV 50 mL IVPB, Intravenous, q8h ?? [COMPLETED] magnesium sulfate 2 g in 50 mL bolus, Intravenous, Once Component Name 02/13/24 0429 02/12/24 0458 02/11/24 0402 02/08/24 0526 01/30/24 04201/29/24 0259 SODIUM 142 140 141 141 139 140 POTASSIUM 4.6 3.9 4.4 3.9 4.1 4.1 CHLORIDE 105 112* 113* 104 101 100 CO2 24 24 23 24 26 27 BUN 32* 27* 31* 38* 17 15 CREATININE 0.79 0.82 0.75 0.95 0.80 0.74 GLUCOSE 156* 166* 178* 178* 146* 135* CALCIUM 8.7 9.3 9.5 9.7 9.6 9.3 ALBUMIN - - - 2.1* 2.7* 2.7* PHOS 4.4 4.6 4.5 - 3.7 4.1 ANIONGAP 13 4* 5* 13 12 13 Blood Sugar Range Past 24 hours: Glucose Bedside (mg/dL) Av.5 mg/dL Min: 163 mg/dL Max: 239 mg/dL Last BM (Date): 02/12/24 Bowel Sounds (All Quadrants): Active (per nursing documentation) Nutrition Issues/Plan: Continue Vital 1.2 at 75 ml/hr, water flush per MD / 1 protein additive daily. Monitor per nutrition guidelines. ASCOM [id number] * Hamlet Patel RN - 02/13/2024 7:51 AM CDT Problem: Tobacco Use Goal: Inpatient tobacco-use cessation counseling participation 02/13/2024749 by Hamlet Patel, RN Outcome: Progressing 02/12/2024 1906 by Hamlet Patel, RN Outcome: Progressing Problem: Fall Risk Goal: Patient will remain free of falls 02/13/2024749 by Hamlet Patel RN Outcome: Progressing 02/12/20241905 by Hamlet Patel RN Outcome: Progressing Problem: Skin Integrity Goal: Skin integrity is maintained or improved 02/13/2024749 by Hamlet Patel RN Outcome: Progressing 02/12/20241905 by Hamlet Patel RN Outcome: Progressing Problem: Neurological Deficit Goal: Neurological status is stable or improving Outcome: Progressing Problem: Pain/Discomfort Goal: Patient exhibits reduced pain/discomfort as evidenced by pain scores 02/13/2024749 by Hamlet Patel RN Outcome: Progressing 02/12/20241905 by Hamlet Patel RN Outcome: Progressing Goal: Patient uses pharmacological and non-pharmacological pain management strategies. 02/13/2024749 by Hamlet Patel RN Outcome: Progressing 02/12/20241905 by Hamlet Patel RN Outcome: Progressing Goal: Patient verbalizes acceptable level of pain relief and ability to engage in desired activity. 02/13/2024749 by Hamlet Patel RN Outcome: Progressing 02/12/20241905 by Hamlet Patel RN Outcome: Progressing * Chuy Siegel DO - 02/13/2024 7:21 AM CDT ICU Progress Note Subjective: Events: Waking up, moving right side more. Still has persisting cough. Tolerated SBT 15/5 this AM. Symptoms: Patient denies pain and is now able to communicate symptoms with yes/no questions, but does not appear to be in any distress. Subjective: Filed Vitals: 02/13/24 0500 02/13/24 0600 02/13/24 0700 02/13/24 0715 BP: 116/76 (!) 155/103 139/90 Pulse: 81 73 76 80 Resp: 30 20 28 14 Temp: TempSrc: SpO2: 92% 100% 97% 95% Weight: Height: Artificial airway None Physical Exam: GENERAL APPEARANCE: Acutely ill appearing EYE: extraocular eye movements intact HEENT: NCAT, MMM secretions improved. NECK: Supple Trach site CDI RESP: coarse to auscultation bilaterally. Referred vent sounds. CARDIO: Regular rate, rhythm without murmur. GI/AB: soft, nttp, normoactive bowel sounds SKIN: Normal to inspection. Warm, dry, supple, with no changes in moles or sores that will not heal. NEUROMUSC: withdraws to painful stimuli, moving left side purposefully, waking to verbal stimuli, smiling, answering yes/no questions. Moving right arm and more spontaneously. Output by Drain (mL) 02/11/24 0701 - 02/11/24 1900 02/11/24 190 - 02/12/24 0702/12/24 07 - 02/12/24 1900 02/12/24 190 - 02/13/24 0702/13/24 07 - 02/13/24 0721 Requested LDAs do not have output data documented. Peripheral IV Anterior;Right Forearm (Active) Placement Date/Time: 02/10/24 07 Size (Gauge): 18 G Orientation: Anterior;Right Location: ForearmSite Prep: Chlorhexidine Technique: Ultrasound Guidance Insertion attempts (FOR ED ONLY): 1 Number of days: 3 Peripheral IV Posterior;Right Hand (Active) Placement Date/Time: 02/12/24 0500 Size (Gauge): 20 G Orientation: Posterior;Right Location: Hand Technique: Anatomical Landmarks Number of days: 1 Enteral - Percutaneous Endoscopic Gastrostomy Abdomen;Midline;Upper (Active) Placement Date/Time: 01/30/24 1514 Placed by: Dr. Ruffin Type: Percutaneous Endoscopic Gastrostomy Tube Location: Abdomen;Midline;Upper Size (FR): 20 Lot Number: [id number] Procedure Tolerance: Sedated Number of days: 13 Trach Bivona (Active) Placement Date/Time: 02/05/24 0800 Person who placed: robbin Brand: Bivona Airway Device: Cuffed Cuff Type: Water (Bivona) Trach size: 8 MM Number of days: 7 Indwelling Transurethral Urinary Catheter (Active) Placement Date/Time: 02/06/24 2330 Placed by: Melony Peterson Size (FR): 16 Catheter Balloon Size: 10 mL Closed System Maintained This Shift: Yes, Seal Intact Number of attempts: 1 Procedure Tolerance: Well Number of days: 6 Laboratory Results Reviewed Radiology Reviewed Assessment: Hospital Day: 21 Raza Cummins Vazquez is a 63 yom with histdory of CAD s/p CABG, obesity, HTN, HLD, DM II who presented to the ICU after an acute ischemic stroke. Timeline 01/22: Presented to ED after being found down. MRI with brainstem infarcts. 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 Transferred to ICU. 01/23: Sedation weaned. Following simple commands 01/24: Extubated 01/26: Worsening encephalopathy. cEEG initiated. Started on keppra. 01/27: EEG read normal 01/28: Transferred from ICU level of care to stroke service 01/29: PEG placed by GI 01/30: OOB to chair 02/01: Worsening mental status, not clearing secretions. ICU re-consulted. Intubated. 02/02: cont on vent support 02/03: consent obtained for trach. Cont TF and sedation. 02/04: tracheostomy 02/06: MRI for consistently poor mental status 02/07: started to wake and follow commands this AM. 02/08: cont vent weaning attempts. 02/09: trach exchanged for XLT bivona air 02/10: cont breathing trials. Tolerated ASV 02/11: tolerated SBT at / while up in combilizer. Plan: Respiratory: Acute hypoxic respiratory failure due to aspirations and acute ischemic stroke with poor secretion clearance - Lung protective ventilation with goal 6-8 cc/kg IBW - Maintain Drive pressure < 15, SaO2 > 90, HOB > 30 degrees, Plateau pressure < 30 cm H20 - Continue duonebs and hypertonic nebs - atropine drops for oral secretions -- Tracheostomy placed 02/04 - changed to hyperflex -- rest on vent qhs -- cont ASV when not on SBT. - attempt 09/18 this afternoon and continue to trial as tolerated with goal trach collar Aspiration PNA now with staph aureus on sputum - Completed 5 days of empiric ceftriaxone 01/27 - Sputum gram stain with MSSA -- ancef - stopped after full course of treatment Cough - less productive. - tussin and HTS with IPV Cardiovascular: Permissive Hypertension - SBP goal 120-180 - amlodipine 5 mg - can escalate as needed CAD - S/p CABG - On aspirin, atorvastatin and clopidogrel Neuro: Acute Ischemic Stroke - 2/2 proximal basilar artery stenosis - s/p angioplasty, unable to stent, c/b dissection of right distal vertebral artery - Completed aggrastat - Continue aspirin, atorvastatin and clopidogrel - Continue modafinil for alertness Encephalopathy - fevers in the setting of above vs sepsis vs toxic from meds vs hypoactive ICU delirium - improved Delirium prophylaxis: - Encourage normal sleep-wake cycle: lights on during the day, frequent re- orientation, sleep hygiene, minimize sleep interruptions. - Avoid sedating medications like benzos and antipsychotics, as much as possible. - PT/OT with early mobility as appropriate - No clinical signs of seizure activity. ID: Sepsis with pulmonary source - improving - sputum cx with MSSA - cont ancef - Continue to monitor WBC and fever curve. Renal: BOLA - improving Hyponatremia, hyperphosphatemia, NS as above. - cont trending labs - Strict Is and Os GI/Diet: Malnutrition Diagnosis Severe Protein Calorie malnutrition in context of acute disease or injury was present on admission.Diagnosis is made in consultation with clinical nutrition who have implemented a care plan. - cont TFs - Continue supplements Endo: DM II - Continue SSI Q 6 - NPH 15 u q12hr Heme: DVT ppx - SQ heparin Prognosis: fair Family updates: will update Code Status: Full Code Disposition: Case management planning LTAC transfer. Auth pending Critical Care Time: I personally spent 50 minutes providing Critical Care services, time was exclusive to this patient and does not include time spent teaching or in procedures. Chuy Siegel DO 02/13/24 7:21 AM Critical Care Medicine * Lily Osorio, [facility] - 02/13/2024 5:08 AM CDT Patient is mechanically ventilated mode ASV MV 100% PEEP +5 FIO2 21%. Patient will continue to be ventilated. Will continue to SBT and assess as able. Spontaneous Breathing Trial Times Ventilator Liberation Times Ventilator Liberation Time ON: 0347 Ventilator Liberation Time OFF: 0500 Initial Settings PSV settin CPAP Settings cm H2O (Initial): 5 Subsequent Settings PSV settin CPAP Settings cm H2O (Subsequent): 5 Results Comments Passed Ventilator Liberation?: No Cuff leak test completed?: Not performed Ventilator Liberation Comments: (Patient failed SBT, increased RR. Placed back on ASV 100%, +5, 21%) * Ashish Dai RN - 02/12/2024 8:45 PM CDT Problem: Fall Risk Goal: Patient will remain free of falls Outcome: Progressing Note: Patient has been educated on the use of the call light. Bed is in the lowest position and is locked. Call light is within reach. Frequent rounds are made by staff to ensure needs are met. Personal items are within patient reach. Problem: Skin Integrity Goal: Skin integrity is maintained or improved Outcome: Progressing Note: Patient has been turned and repositioned every two hours and as needed. Heels are elevated bilaterally. Skin has been kept dry. Patient is on a pressure redistribution mattress. * Hamlet Patel RN - 02/12/2024 7:07 PM CDT Problem: Tobacco Use Goal: Inpatient tobacco-use cessation counseling participation Outcome: Progressing Problem: Fall Risk Goal: Patient will remain free of falls Outcome: Progressing Problem: Skin Integrity Goal: Skin integrity is maintained or improved Outcome: Progressing Problem: Pain/Discomfort Goal: Patient exhibits reduced pain/discomfort as evidenced by pain scores Outcome: Progressing Goal: Patient uses pharmacological and non-pharmacological pain management strategies. Outcome: Progressing Goal: Patient verbalizes acceptable level of pain relief and ability to engage in desired activity. Outcome: Progressing Problem: General Goal: STG-Patient will Description: Tolerate sitting EOB for approx. 5 minutes w/ SBA to prepare for ADLs Outcome: Progressing Goal: STG-Patient will Description: Complete 1-2 seated ADL tasks w/ min assist Outcome: Progressing Goal: STG-Patient will Description: Perform oral hygiene routine with min assist Outcome: Progressing Problem: Hemodynamic Status/Cardiac Output Goal: Patient has stable vital signs and fluid balance Outcome: Progressing * Hamlet Patel RN - 02/12/2024 7:02 PM CDT Shift Summary Nursing [facility] 3S ICU Room: 02/12/24 Patient: Raza Vazquez Sex: male Age: [age] year old : 1960 [facility]#: [id number] Height: 193 cm (6' 4 ) Weight: 125.5 kg (276 lb 10.8 oz) Body mass index is 33.68 kg/m??. Code Status: Full Code Admit: 01/23/2024 Hospital Day: 20 Attending: Sherie Beltre MD Unit: [facility] 3S ICU Allergies Allergen Reactions ??? Lisinopril Angioedema ??? Pcn [Penicillins] Swelling eyes swelled shut 50 years ago ??? Penicillin V Rash Safety concerns: Choose Restraint type: Non-Violent Non-Violent Restraint Type Soft Wrist - Left (NV): CONTINUED Soft Wrist - Bilateral (NV): DISCONTINUED Past Medical/surgical History Past Medical History: Diagnosis Date ??? Anemia 01/2018 ??? Asthma ([facility]) ??? Chest congestion 08/05/2020 ??? Confusional arousals 08/05/2020 ??? Controlled type 2 diabetes mellitus without complication, without long-term current use of insulin ([facility]) 09/28/2011 ??? 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 Cough syncope 2017 ??? Daytime sleepiness 08/05/2020 ??? Essential hypertension 01/23/2018 ??? Hyperlipidemia 08/05/2020 ??? Inadequate sleep hygiene 08/05/2020 ??? Morbid obesity with BMI of 40.0-44.9, adult ([facility]) 08/05/2020 ??? Nocturia 08/05/2020 ??? Obesity (BMI 30-39.9) 04/24/2012 ??? Other chest pain 09/04/2018 ??? S/P CABG x 3 01/24/2018 ??? Snoring 08/05/2020 ??? Superficial postoperative wound infection 02/23/2018 sternum ??? Wears glasses 08/05/2020 ??? Weight gain 08/05/2020 40# past 6-8 months-covid ??? Wound of sternal region 02/23/2018 Past Surgical History: Procedure Laterality Date ??? COLONOSCOPY N/A 11/12/2020 N/A; COLONOSCOPY SCREEN ??? Coronary Artery Bypass Graft N/A 01/24/2018 N/A; Coronary artery bypass graft x 3 ??? ENDOSCOPY, UPPER N/A 01/30/2024 N/A; ESOPHAGOGASTRODUODENOSCOPY (EGD) WITH PEG PLACEMENT ??? Tonsillectomy Vitals Temp: 98.4 ??F (36.9 ??C) Temp Source: Axillary Pulse: 78 Heart Rate Source: Monitor Resp: 17 BP: 158/99 MAP: 118 Arterial Line BP #1: 195/99 Art Line MAP #1: 133 mmHg Patient Vitals for the past 6 hrs: Temp Pulse Resp BP 02/12/24 1900 -- 78 17 -- 02/12/24 1815 -- 81 18 -- 02/12/24 1800 -- 85 25 158/99 02/12/24 1745 -- 82 18 -- 02/12/24 1730 -- 80 15 -- 02/12/24 1715 -- 77 18 -- 02/12/24 1700 -- 83 13 133/66 02/12/24 1645 -- 88 19 -- 02/12/24 1630 -- 95 19 -- 02/12/24 1615 -- 96 (!) 43 -- 02/12/24 1605 -- 94 24 -- 02/12/24 1600 98.4 ??F (36.9 ??C) 91 (!) 38 -- 02/12/24 1545 -- 93 20 -- 02/12/24 1530 -- 89 18 -- 02/12/24 1515 -- 90 19 -- 02/12/24 1500 -- 85 15 122/95 02/12/24 1445 -- 85 15 -- 02/12/24 1430 -- 83 19 -- 02/12/24 1415 -- 82 24 -- 02/12/24 1400 -- 77 12 124/80 02/12/24 1345 -- 76 16 -- 02/12/24 1330 -- 76 15 -- 02/12/24 1315 -- 81 16 -- Neurological Neurological Level of Consciousness-Adult: Alert;Eyes Open Spontaneously Orientation Level: Unable to Obtain Cognition: Follows one step commands;Judgement-decreased;Safety awareness-decreased;Attention/concentration-decreased Speech: Intubated/trached Vision: Partial hemianopia Pupil Size Right (MM): 2 Pupil Assessment Right: Sluggish;Round Pupil Size Left (MM): 4 Pupil Assessment Left: Nonreactive (fixed) Facial symmetry: Symmetrical RASS: RASS : Alert and Calm Last Known Well: Initial documented NIHSS Score: NIH Total: 13 (01/23/24 1048) Last Documented NIHSS Score: NIH Total: 15 (02/12/24 0745) Neuromuscular Neuromuscular Motor Response RUE: Responds to commands;Spontaneous and Purposeful 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 Motor Function RUE: Cannot Overcome Resistance Sensation RUE: Unable to Obtain Motor Response LUE: Responds to commands;Spontaneous and Purposeful Left hand machine pack assembler: Weak Motor Function LUE: Can Overcome Resistance (Weak) Sensation LUE: Unable to Obtain Right foot dorsiflexion: Weak Right foot plantar flexion: Weak Motor Response RLE: Responds to commands;Spontaneous and Purposeful Motor Function RLE: Can Overcome Resistance (Weak) Sensation RLE: Unable to Obtain Left foot dorsiflexion: Weak Left foot plantar flexion: Weak Motor Response LLE: Responds to commands;Spontaneous and Purposeful Motor Function LLE: Can Overcome Resistance (Weak) Sensation LLE: Unable To Obtain Ataxia: Absent Cardiac Cardiac Monitoring Cardiac Rhythm: Sinus Rhythm Ectopy: None Ectopy Frequency: Rare Respiratory SPO2: SpO2: 94 % Monitor: Liters Per Minute: O2 L/M: 2 FIO2: O2 % (FiO2): 21 % Device: $ O2 DEVICE: Ventilator $ O2 % (FiO2): 21 % $ O2 DEVICE: Ventilator $ Incentive Spirometry Volume: # Attempts: Performance: Vent Settings Mechanical Ventilation VENT MODE: ASV SET VENTILATION RATE (bpm): 15 bpm OBSERVED VENTILATION RATE (bpm): 19 bpm SET TIDAL VOLUME (mL): 520 ML EXHALED TIDAL VOLUME (ml): 579 ml Spontaneous Tidal Volume (mL): 301 ML Pressure Support: 16 cm H2O PEEP/CPAP: 5 cm H20 ETCO2 (mmHg): 35 mmHg OBSERVED PEAK INSPIRATORY PRESSURE (cm H2O): 25 cm H2O % MV: 100 % PEEP/CPAP: 5 cm H20 Pressure Support: 16 cm H2O Mean Airway Pressure (cm H2O): 13 cm H2O O2 %: 21 % ABG: Recent Labs Component Name 02/02/24 1609 07/26/22 1756 01/25/18 0026 PH 7.55* - 7.42 PCO2 32* - 38 PO2 394* - 82 HCO3 - - 24.3 - = values in this interval not displayed. ABG: Recent Labs Component Name 02/02/24 1609 01/27/24 1233 01/23/24 1714 [id number] 28.0* 28.5* 26.6* Gastric Intestinal Orders Placed This Encounter Procedures ??? DIET NPO Except: NO EXCEPTIONS Standing Status: Standing Number of Occurrences: 1 Order Specific Question: Except Answer: NO EXCEPTIONS ??? DIET TUBE FEEDING CONTINUOUS Standing Status: Standing Number of Occurrences: 1 Order Specific Question: Formula Type? Answer: VITAL AF 1.2 (ELEMENTAL) Order Specific Question: Route? Answer: PEG/G TUBE Order Specific Question: Goal Feeding (ml/hr): Answer: 75ML Order Specific Question: Flush Frequency: Answer: Every 4 hours Order Specific Question: Free Water Flush Amount in ml: Answer: 200 Order Specific Question: Protein Additives: Answer: 1 PROTEIN FLUSH/FEEDING TUBE DAILY DIET NPO Except: NO EXCEPTIONS DIET TUBE FEEDING CONTINUOUS Last BM (Date): 02/10/24 (FMS in place) Feeding: Feeding: Completely dependent LBM: Last BM (Date): 02/10/24 (FMS in place) Bowel Patern: Bowel Sounds: Bowel Sounds (All Quadrants): Active Stool Assessment Bowel Incontinence: No Stool Appearance : Loose Stool Color : Brown Stools (# of stools): 1 Stool Amount: Large Urinary Urinary Urine Color: Yellow Urine Appearance: Clear Urine Odor: No Odor Urinary Symptoms: Catheter $ Bladder Scan Pre Void Volume: 246 ML [REMOVED] Condom Urinary Catheter 01/26/24 1441-Urine Output (catheter): 300 [REMOVED] External Urinary Device 01/27/24 1000-Urine Output (catheter): 150 [REMOVED] Condom Urinary Catheter 02/01/24 1410-Urine Output (catheter): 175 [REMOVED] Indwelling Transurethral Urinary Catheter-Urine Output (catheter): 100 [REMOVED] Indwelling Transurethral Urinary Catheter-Urine Output (catheter): 150 [REMOVED] Indwelling Transurethral Urinary Catheter-Urine Output (catheter): 85 Indwelling Transurethral Urinary Catheter-Urine Output (catheter): 175 Intake/Output Date 02/11/24 1500 - 02/12/24 0659 02/12/24 0700 - 02/13/24 0659 Shift 6783-4744 4565-5508 24 Hour Total 6826-3582 2983-5398 5523-5592 24 Hour Total INTAKE I.V.(mL/kg/hr) 49.9(0.1) 149.2(0) Other 50 50 Tube 50 100 250 100 100 Enteral 698 024 0583 600 300 900 Shift Total(mL/kg) 425.9(3.4) 1046(8.3) 2082.2(16.6) 700(5.6) 300(2.4) 1000(8) OUTPUT Urine(mL/kg/hr) 360(0.4) 450(0.4) 1240(0.4) 1025(1) 225 1250 Other 0 0 0 Shift Total(mL/kg) 360(2.9) 450(3.6) 1240(9.9) 1025(8.2) 225(1.8) 1250(10) NET 65.9 596 842.2 -325 75 -250 Weight (kg) 123.8 125.5 125.5 125.5 125.5 125.5 125.5 Cumulative Intake/Output Cumulative Intake: 1996 ML Cumulative Output: 1600 ML Net Cumulative I/O: 396 ML Skin Evan Score, Total Score: 16 Skin Condition: Swollen Hygiene Hygiene Hygiene: Bathed;Araceli care Hygiene Level of Assistance: Completely dependent Skin Care / Prevention: Float Heels Oral Care: Performed Antimicrobial Skin Treatment: Yes Activity: Mobility Activity: In bed Repositioned: Lying Left Side HOB Elevated (in degrees): HOB 30 Level of Assistance: Completely dependent Activity Assistive Device: Repositioning Device Distance Ambulated (ft): 0 FEET Ambulation Response: Tolerated - Fair Range of Motion: All Extremities;Active Anti-Embolism Interventions: On Anti-embolism Mechanical Devices: Sequential compression devices Knee High Lines and Drains Peripheral IV Anterior;Right Forearm (Active) Placement Date/Time: 02/10/24 0700 Size (Gauge): 18 G Orientation: Anterior;Right Location: ForearmSite Prep: Chlorhexidine Technique: Ultrasound Guidance Insertion attempts (FOR ED ONLY): 1 Number of days: 2 Peripheral IV Posterior;Right Hand (Active) Placement Date/Time: 02/12/24 0500 Size (Gauge): 20 G Orientation: Posterior;Right Location: Hand Technique: Anatomical Landmarks Number of days: 0 Enteral - Percutaneous Endoscopic Gastrostomy Abdomen;Midline;Upper (Active) Placement Date/Time: 01/30/24 1514 Placed by: Dr. Ruffin Type: Percutaneous Endoscopic Gastrostomy Tube Location: Abdomen;Midline;Upper Size (FR): 20 Lot Number: [id number] Procedure Tolerance: Sedated Number of days: 13 Trach Bivona (Active) Placement Date/Time: 02/05/24 0800 Person who placed: robbin Brand: Bivona Airway Device: Cuffed Cuff Type: Water (Bivona) Trach size: 8 MM Number of days: 7 Indwelling Transurethral Urinary Catheter (Active) Placement Date/Time: 02/06/24 2330 Placed by: Melony Peterson Size (FR): 16 Catheter Balloon Size: 10 mL Closed System Maintained This Shift: Yes, Seal Intact Number of attempts: 1 Procedure Tolerance: Well Number of days: 5 Continuous Medications Labs Recent Labs Component Name 02/12/24 0458 02/11/24 0402 02/10/24 0324 02/08/24 1153 02/08/24 0526 01/31/24 1116 01/30/24 0429 01/29/24 0259 SODIUM 140 141 143 - 141 - 139 140 POTASSIUM 3.9 4.4 3.6 - 3.9 - 4.1 4.1 CHLORIDE 112* 113* 112* - 104 - 101 100 CO2 - 27 BUN 27* 31* 29* - 38* - 17 15 CREATININE 0.82 0.75 0.83 - 0.95 - 0.80 0.74 GLUCOSE 166* 178* 126* - 178* - 146* 135* CALCIUM 9.3 9.5 9.8 - 9.7 - 9.6 9.3 ALBUMIN - - - - 2.1* - 2.7* 2.7* ALKPHOS - - - - 193* - 81 90 ALT - - - - 73* - 9 10 AST - - - - 62* - 14 14 TBIL - - - - 0.3 - 0.2 0.2 TPROT - - - - 8.0 - 7.8 8.2 EGFR >90 >90 >90 - 89* - >90 >90 - = values in this interval not displayed. Narrative Pt alert follows one step commands Moves all NIH 15 Decreased urine output MD aware 500ml NS bolus given Increased water flush to 200mls q 4 hour Up in combo chair x 6 hours LBM today smear Family updated beltran remains Hamlet Patel RN 02/12/2024 7:02 PM This note is only as accurate as the information entered into [facility]. Be sure to review Orders and MAR for additional information * Bianca Corado RCP - 02/12/2024 4:58 PM CDT Patient is mechanically ventilated mode ASV 100% PEEP +5 FIO2 21%. Pt was able to wean on PSV for roughly 2 hours (18/5+) and then weaned down to 16/5+/21%. Wean stopped due to increased RR. MD notified. Will continue to SBT and assess as able. Pt started on IPV today with Q6 Hypertonic Saline 3%. Continue DuoNeb Q6. * Macho Solis - 02/12/2024 1:36 PM CDT Physical Therapy ICU Treatment Chart reviewed for diagnosis and medical systems review. RN consented for PT. Explained purpose of PT and patient consented to participate in therapy. A??63 year old??male??was admitted with PMH of DM, HTN, alcohol abuse??who presented on 01/23/2024 10:27 AM??with chief complaint of unresponsiveness.??He was found down at his home by the recharger person he had scheduled to visit his home today. His last known well was not clear. I spoke with his sister who said they had not seen or spoken to him in the last 24 hrs. He??was able to follow some command upon arrival to the hospital but had a hard time moving his lower limbs. MRI brain stat was quickly obtained showing multiple infarcts in the brainstem including the left midbrain and left thalamus and right periventricular region. 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 Decision to take to IVR for exploration and potential management. He was intubated in the ER for airway protection.??CTH stable. Family reports L pupil has been larger for 2+months. Extubated 01/24. ?? Reported seizure activity on 01/26, started on Keppra. ??No further seizure since. 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 MRI 02/06 showed new infarcts/progression of old - indicated due to persistent poor mental status ?? RECOMMENDATIONS/PLAN: continue acute PT services with progression of EOB/OOB activity as tolerated Progress standing in travis steady as tolerated PT Discharge Recommendations: Patient would benefit from intensive 3-hour multidisciplinary therapy This recommendation is made due to ongoing intensive PT functional needs: patient has the need for more than one skilled therapy service;motivated to participate in therapy;patient demonstrates a significant functional decline and would benefit from skilled therapy intervention to restore function;patient has the ability to progress and demonstrate measurable gains as a result of skilled therapy Recommended Transportation Method: Stretcher/Ambulance PPE worn by staff: gloves AM-PAC Basic mobility score for this patient is Mobility Raw Score:: 8 mRS prior: 0 mRS current: 0 Precautions: Full code, Fall, SBP 120-180, Trach, PEG, PIV,??Central line, Beltran, safety, left softwrist restraint, left eye Ptosis SUBJECTIVE:Subjective: Pt consented to therapy services Pain Assessment: Pain Location #1 Pain Scale/Observation: Behaviors Pain Rating Score #1: 0 Sedation Level #1: 1-Awake and alert OBJECTIVE: Cognition: Orientation Level: Unable to Obtain Cognition: Follows one step commands;Processing-delayed;Judgement-decreased Level of Consciousness-Adult: Alert;Eyes Open Spontaneously Participation: Active Participation ROM/Strength: RUE WFL for mobility tasks, some assist/cueing necessary to bring to face initially LUE WFL for mobility tasks during session ANTELMO LE WFL for mobility tasks this session Balance: Sitting - Static: Fair +;With One Upper Extremity Support Sitting - Dynamic: Fair +;With One Upper Extremity Support Bed Mobility: Rolling: Total Assistance Supine to Sit: Maximum Assistance;X 2 Sit to Supine: Total Assistance;X 2 Transfers: Sit to Stand: Maximum Assistance;X 3 (in sarasteady) Stand to Sit: Maximum Assistance;X 3 (in sarasteady) Bed to Chair: Total Assistance;X 3;Other (Comment) (to wally with RT managing vent) Type of Transfer: Lateral Transfer Transfer Device: Other (see comment) (turn system) Mobility: Distance Ambulated (ft): 0 FEET Ambulation: Level of Assistance: Activity Does Not Occur Activity Tolerance: Activity Tolerance: Requires rest breaks Vital signs: BP taken on UE Monitored and stable while asymptomatic. BP stable with sitting. ASSESSMENT: Pt tolerated session well with stable vitals and denying dizziness, SOB, and other adverse s/s. RT present throughout session to manage vent/trach. Pt L eye remains with ptosis. R eye tracking, appears in central position compared to yesterday. Pt remains with stable mentation compared to previous session. Pt tolerated ~10 minutes EOB sitting for room prep and activities with PT including ROM, RROM, weightbearing, and balance. Pt able to maintain balance intermittently without assist and with UE support/bedrail. Pt tolerated sit <> stand times to in sarasteady with ability to initiate but then requiring physical assist of 3 with RT managing vent. One PT behind to assist bottom, one PT assisting trunk/weight through gait belt, OT assisting LEs. Pt left up in combolizer in care of OT and RN at end of session for sitting tolerance. Overall, pt remains with significant decline in functional mobility with impairments of strength, ROM, endurance, safety awareness and activity tolerance. Pt remains with decreased respiratory endurance with vent through a trach. Call light and phone in reach with alarm activated. All lines, monitors, IV's, equipment in place and intact pre and post visit. RN notified of patient's performance/location end of session. Pt educated in PT plan of care, fall precautions, and benefits of OOB activity. Refer to Plan of Care for PT goals. See Filed Flowsheet under Summary for further details. RECOMMENDATIONS/PLAN: Progress as tolerated. If this is the last Physical Therapy visit, this serves as the discharge summary. Davon SPT Ascom [phone] * Sloane Caballero, OT - 02/12/2024 12:13 PM CDT Occupational Therapy Treatment Summary: Chart reviewed for diagnosis and medical systems review. Nursing consented for OT. Explained purpose of OT and patient consented to participate in therapy. RECOMMENDATIONS/PLAN: Continue skilled OT. Discharge Equipment Recommendations: To Be Determined OT Discharge Recommendations: Patient would benefit from intensive 3-hour multidisciplinary therapy This recommendation is made due to ongoing intensive OT functional needs: ability to actively participate in intensive therapy 3 hours/day, 5 days a week;patient has the need for more than one skilled therapy service;motivated to participate in therapy;not at baseline due to impaired ability to complete ADL's;functional mobility is significantly below baseline;likely to return to the community atdischarge with support system;patient and/or caregiver require specialized training;patient has theability to progress and demonstrate measurable gains as a result of skilled therapy;patient demonstrates a significant functional decline and would benefit from skilled therapy intervention to restore function Recommended Transportation Method: Stretcher/Ambulance PPE worn by staff: gloves PPE worn by patient: socks - clean;gown - patient, clean AM-PAC Daily Activity Raw Score:: 9 Precautions: Fall, Tele, Trach on vent, PEG, L soft wrist restraint, Beltran SUBJECTIVE: Pt seated EOB with PT upon OT arrival, agreeable to co tx. Pt able to give thumbs up, shake heda yes / o appropriately. Psychosocial: Patient Behaviors: Calm;Cooperative Family Behaviors: Calm;Cooperative Pain Assessment: Pain Location #1 Pain Scale/Observation: Critical Care Pain Observation Tool Pain Rating Score #1: 0 OBJECTIVE: Cognition: Orientation Level: Unable to Obtain Cognition: Attention/concentration-decreased;Follows one step commands;Processing-delayed;Judgement-decreased;Safety awareness- decreased;Memory impairment-chcf;Memory impairment-short term Attention Span: Attends with cues to redirect;Difficulty attending to directions Memory: Decreased recall of recent events;Decreased short term memory Following Commands: Follows one step commands with repetition/cues Safety Judgement: Decreased awareness of need for assistance Awareness of Errors: Assistance required to correct errors made;Assistance required to identify errors made Problem Solving: Assistance required to implement solutions;Assistance required to identify errors made ADLs/Functional Mobility: Bed Mobility: Rolling: Total Assistance Supine to Sit: Activity Does Not Occur (sitting EOB upon OT arrival) Sit to Supine: Total Assistance;X 2 Transfers: Sit to Stand: Maximum Assistance;X 3 Stand to Sit: Maximum Assistance;X 3 Bed to Chair: Total Assistance;X 3 Type of Transfer: Lateral Transfer Mobility; Distance Ambulated (ft): 0 FEET Ambulation: Level of Assistance: Activity Does Not Occur Balance: Sitting - Static: Fair -;Poor + Standing - Static: Poor Basic ADL: observation/clinical judgement Feeding: Total Assistance (PEG) Oral Facial Hygiene: Minimal Assistance (with RUE) Bathing: Maximal Assistance Upper Body Dressing: Maximal Assistance Lower Body Dressing: Total Assistance Toileting: Total Assistance (Beltran) RUE Assessment: RUE Assessment AROM - Right Upper Extremity: Exceptions PROM - Right Upper Extremity: Within Functional Limits Strength - Right Upper Extremity: Exceptions Tone - Right Upper Extremity: Exceptions General RUE Tone: Hypotonic-Severe Sensation - Right Upper Extremity: Within Normal Limits Military Equipment Specialist Strength - Right Upper Extremity: 10/19 LUE Assessment: LUE Assessment AROM - Left Upper Extremity: Within Functional Limits PROM - Left Upper Extremity: Within Functional Limits Strength - Left Upper Extremity: Within Functional Limits Tone - Left Upper Extremity: Within Functional Limits Sensation - Left Upper Extremity: Within Normal Limits Military Equipment Specialist Strength - Left Upper Extremity: WFL Functional Level of Impairment: Functional Level of Comprehension: Moderate assistance (moderate prompting) pt expends 50-74% effort Functional Level of Expression: Moderate assistance (moderate prompting) pt expends 50-74% effort Functional Level of Social Interaction: Moderate assistance (moderate prompting) pt expends 50-74% effort Functional Level of Memory: Maximal assistance (maximum prompting) pt expends 25-49% effort Functional Level of Problem Solving: Maximal assistance (maximum prompting) pt expends 25-49% effort Activity tolerance/Oxygen Therapy: O2 L/M: 2 O2 % (FiO2): 21 % $ O2 DEVICE: Ventilator $ Modified Mervin Score Current Modified Mervin Score: 5 ASSESSMENT: Pt tolerates session well. Pt does not appear to be in any distress throughout. Pt R side remains weak however pt able to lift arm to face AAROM. Pt completes sit<>superintendent generating plant travis steady with MAX A x3, pt able to maintain standing approx. 10 seconds before returning to sit. Pt completes x3 trials of stands with MAX A x3. RT present throughout manage vent. Pt then returned to supine, rolled in bed L<>R with MAX A to adjust pads underneath. Pt transitioned from bed>combolizer via lateral transfer. Pt able to complete facial hygiene with MIN and RUE, pt able to complete hand to face with minimal assist, independently identify forehead, eyes, nose, mouth as well as L/R side of face. Pt left seated in combolizer. Pt would continue to benefit from intensive therapy to maximize independence with ADLs and functional mobility. Please refer to the Filed Flowsheet for further details. Call light and phone in reach with bed alarm activated. All lines, monitors, IV's, equipment in place and intact pre and post visit. RNHamlet, notified of patient's performance/location end of session. Educated patient/family in role of OT, goals of OT, benefits of OOB activity, transfers, ADLs, UE exercises, safety If this is the last OT visit, this note serves as the discharge summary. JOSE E AntonR/Boris [phone] * Sherie Beltre MD - 02/12/2024 12:00 PM CDT INTERVENTIONAL STROKE NEUROLOGY PROGRESS NOTE Hospital Day: 20 A 63 year old male was admitted with PMH of DM, HTN, alcohol abuse who presented on 01/23/2024 10:27AM with chief complaint of unresponsiveness. He was found down at his home by the recharger person he had scheduled to visit his home today. His last known well was not clear. I spoke with his sister who said they had not seen or spoken to him in the last 24 hrs. He was able to follow some command upon arrival to the hospital but had a hard time moving his lower limbs. Suspicion of posterior circulation stroke was entertained. MRI brain stat was quickly obtained showing multiple infarcts in the brainstem including the left midbrain and left thalamus and right periventricular region. 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 Decision to take to IVRfor exploration and potential management. He was intubated in the ER for airway protection. CTH stable. Family reports L pupil has been larger for 2+months. Extubated 01/24. Reported seizure activity on 01/26, started on Keppra. No further seizure since. PEG placed for neurogenic dysphagia, TF restarted. Re- intubated and sedated on 02/01 due to respiratory failure. Trach placed. 02/12/2024: Patient seen laying in bed, awake and interactive. Insurance denied need for LTAC, awaiting appeal. Remains on vent. Sister at bedside, updated on plan of care. MEDICATIONS FOR CURRENT ENCOUNTER: SCHEDULED MEDICATIONS: 0.9% NaCl injection 3 mL, Intracatheter, q8h albuterol-ipratropium (Duo-Neb) nebulizer solution 3 mL, Inhalation, q6h amLODIPine (Norvasc) tablet 10 mg, Enteral Tube, QDAY aspirin chew tablet 81 mg, Enteral Tube, QDAY atorvastatin (Lipitor) tablet 40 mg, Enteral Tube, AT BEDTIME atropine 1 % ophthalmic solution 1 drop, Sublingual, q8h ceFAZolin (Ancef) 2 g in 0.9% NaCl IV 50 mL IVPB, Intravenous, q8h clopidogrel (plaVIX) tablet 75 mg, Enteral Tube, QDAY famotidine (Pepcid) tablet 20 mg, Enteral Tube, BID folic acid (Folvite) tablet 1 mg, Enteral Tube, QDAY guaiFENesin (Robitussin) solution 10 mL, Enteral Tube, q6h heparin injection 5,000 Units, Subcutaneous, BID Hydrocod Nikhil-Chlorphe Nikhil ER (Tussionex) suspension 5 mL, Enteral Tube, q12h insulin aspart (NovoLOG) pen 0-18 Units, Subcutaneous, q6h insulin NPH pen 15 Units, Subcutaneous, q12h magnesium sulfate 2 g in 50 mL bolus, Intravenous, Once modafinil (Provigil) tablet 200 mg, Enteral Tube, QAM multiple vitamins with minerals tablet 1 tablet, Enteral Tube, QDAY sodium chloride 3 % nebulizer solution 3 mL, Inhalation, q6h thiamine (Vitamin B-1) tablet 100 mg, Enteral Tube, QDAY [COMPLETED] amLODIPine (Norvasc) tablet 5 mg, Enteral Tube, Once [COMPLETED] furosemide (Lasix) injection 40 mg, Intravenous, Once [COMPLETED] glycopyrrolate (Robinul) injection 0.1 mg, Intravenous, Once [COMPLETED] magnesium sulfate 2 g in 50 mL bolus, Intravenous, Once ??? [COMPLETED] potassium chloride (Klor-Con) packet 40 mEq, Enteral Tube, Once ??? CONTINUOUS MEDICATIONS: PRN MEDICATIONS: Or Or 0.9% NaCl injection 1-10 mL, Intracatheter, PRN acetaminophen (Tylenol) tablet 650 mg, Enteral Tube, q4h PRN dextrose 10 % IV bolus, Intravenous, PRN dextrose 10 % IV bolus, Intravenous, PRN glucagon (Glucagen) injection 1 mg, Subcutaneous, PRN hydrALAZINE (Apresoline) injection 10 mg, Intravenous, q1h PRN ondansetron (Zofran) injection 4 mg, Intravenous, q4h PRN ??? prochlorperazine (Compazine) injection 10 mg, Intravenous, q4h PRN Peripheral IV Anterior;Right Forearm (Active) Placement Date/Time: 02/10/24 0700 Size (Gauge): 18 G Orientation: Anterior;Right Location: ForearmSite Prep: Chlorhexidine Technique: Ultrasound Guidance Insertion attempts (FOR ED ONLY): 1 Number of days: 2 Peripheral IV Posterior;Right Hand (Active) Placement Date/Time: 02/12/24 0500 Size (Gauge): 20 G Orientation: Posterior;Right Location: Hand Technique: Anatomical Landmarks Number of days: 0 Enteral - Percutaneous Endoscopic Gastrostomy Abdomen;Midline;Upper (Active) Placement Date/Time: 01/30/24 1514 Placed by: Dr. Ruffin Type: Percutaneous Endoscopic Gastrostomy Tube Location: Abdomen;Midline;Upper Size (FR): 20 Lot Number: [id number] Procedure Tolerance: Sedated Number of days: 12 Trach Bivona (Active) Placement Date/Time: 02/05/24 0800 Person who placed: robbin Brand: Bivona Airway Device: Cuffed Cuff Type: Water (Bivona) Trach size: 8 MM Number of days: 7 Indwelling Transurethral Urinary Catheter (Active) Placement Date/Time: 02/06/24 2330 Placed by: Melony Peterson Size (FR): 16 Catheter Balloon Size: 10 mL Closed System Maintained This Shift: Yes, Seal Intact Number of attempts: 1 Procedure Tolerance: Well Number of days: 5 BP 135/83 Pulse 84 Temp 98.4 ??F (36.9 ??C) (Axillary) Resp 31 Ht 1.93 m (6' 4 ) Wt 125.5kg (276 lb 10.8 oz) SpO2 96% Wt Readings from Last 3 Encounters: 02/12/24 125.5 kg (276 lb 10.8 oz) 09/17/23 (!) 148.6 kg (327 lb 9.6 oz) 05/07/23 (!) 145.2 kg (320 lb) Multisystem Examination: Neck: Limited due to Trach Respiratory: No respiratory distress. Cardiovascular: Normal heart rate, Normal rhythm. GI: Soft, No tenderness Integument: Warm, Dry Neurological Examination: The patient is trached, awake, and following commands. Speech is mouths words. L Pupils 4 non-reactive not responding to threat. Right pupil 3 mm reactive. Motor/Sensory: No involuntary movements were observed. Moving all limbs against gravity. Coordination: Unable to perform finger to nose. Gait: Not tested due to patient condition. Labs Recent Labs Component Name 02/04/24 0328 01/24/24 0443 07/23/20 0649 01/20/19 1134 CHOL - 229* 254* 258* TRIG 190* 179* 179* 63 HDL - 32* 48 63 LDLCALC - 161* 173* 179* Recent Labs Component Name 02/12/24 0458 02/11/24 0402 02/10/24 0324 02/08/24 1153 02/08/24 0526 01/31/24 1116 01/30/24 0429 01/29/24 0259 SODIUM 140 141 143 - 141 - 139 140 POTASSIUM 3.9 4.4 3.6 - 3.9 - 4.1 4.1 CHLORIDE 112* 113* 112* - 104 - 101 100 CO2 24 23 - 24 - 26 27 BUN 27* 31* 29* - 38* - 17 15 CREATININE 0.82 0.75 0.83 - 0.95 - 0.80 0.74 GLUCOSE 166* 178* 126* - 178* - 146* 135* CALCIUM 9.3 9.5 9.8 - 9.7 - 9.6 9.3 ALBUMIN - - - - 2.1* - 2.7* 2.7* ALKPHOS - - - - 193* - 81 90 ALT - - - - 73* - 9 10 AST - - - - 62* - 14 14 TBIL - - - - 0.3 - 0.2 0.2 TPROT - - - - 8.0 - 7.8 8.2 EGFR >90 >90 >90 - 89* - >90 >90 - = values in this interval not displayed. Evaluation: CT head 01/22: 1. No acute intracranial hemorrhage. 2. Involutional changes with chronic lacunar infarctions and ischemic microangiopathy. 3. Age indeterminate infarction left thalamus and less likely a sequela of trans-synaptic degeneration. MRI brain if there is concern for acute ischemia. CT head 4/11: No acute intracranial hemorrhage. Stable chronic findings. CT angio: Short segment severe, string-like stenosis of the lower basilar artery just above the vertebral confluence. Cerebral Angiogram Impression 01/23/2024: A severe stenosis in the proximal basilar artery, s/p successful balloon angioplasty. Residual stenosis about 50% in lateral view MRI Brain: 1. New 11 x 6 mm acute infarction within the right periatrial white matter/major forceps. 2. There is expected evolution of previously demonstrated acute infarctions within the left thalamus and extending into the midbrain as well as the right frontal merchant radiata as compared with 01/23/2024. 3. Persistent global involutional changes, chronic right basal ganglia lacunar infarction and underlying ischemic microangiopathy. Echo: ??? Left??Ventricle: Left ventricle size is normal. Mildly to moderately increased wall thickness. Normal systolic function. EF 50-55%. Normal wall motion. Diastolic function is indeterminate. ??? Right??Ventricle: Right ventricle is not well visualized. ??? Aortic??Valve: Mild regurgitation. EKG: Results for orders placed or performed during the hospital encounter of 01/23/24 EKG 12-LEAD Result Value Ref Range Ventricular Rate 96 BPM Atrial Rate 96 BPM P-R Interval 146 ms QRS Duration ms 78 ms Q-T Interval ms 360 ms QTC Calculation (Bezet) 454 ms Calculated P [place] 79 degrees Calculated R [place] 76 degrees Calculated T [place] -77 degrees Interpretation EKG Normal sinus rhythm ST & T wave abnormality, consider inferolateral ischemia Abnormal ECG When compared with ECG of 26-JUL-2022 16:28, Premature ventricular complexes are no longer Present Non-specific change in ST segment in Anterior leads Inverted T waves have replaced nonspecific T wave abnormality in Inferior leads T wave amplitude has increased in Anterior leads Confirmed by JUSTICE PURVIS MD ([id number]) on 01/23/2024 2:35:44 PM Tele: Cardiac Rhythm: Sinus Rhythm (02/12/24 0400) LDL: Recent Labs Component Name 01/24/24 0443 07/23/20 0649 01/20/19 1134 LDLCALC 161* 173* 179* HgBA1C: Recent Labs Component Name 01/23/24 1039 09/17/23 1330 10/18/22 1045 HGBA1C 6.1* 6.5 5.9 Initial documented NIHSS Score: NIH Total: 13 (01/23/24 1048) Last Documented NIHSS Score: NIH Total: 15 (02/12/24 0745) Depression Screen Score = Does not meet criteria for screening: Intubation PHQ-2 PHQ-9 Therapy Recommendations: Discharge Discharge Equipment Recommendations: To Be Determined (01/29/24 1429) OT Discharge Recommendations: Patient would benefit from intensive 3-hour multidisciplinary therapy(02/11/24 1417) This recommendation is made due to ongoing intensive OT functional needs: ability to actively participate in intensive therapy 3 hours/day, 5 days a week;patient has the need for more than one skilled therapy service;motivated to participate in therapy;not at baseline due to impaired ability to complete ADL's;functional mobility is significantly below baseline;likely to return to the community atdischarge with support system;patient and/or caregiver require specialized training;patient has theability to progress and demonstrate measurable gains as a result of skilled therapy;patient demonstrates a significant functional decline and would benefit from skilled therapy intervention to restore function (02/11/24 141) PT Discharge Recommendations: Patient would benefit from intensive 3-hour multidisciplinary therapy(02/11/24 1306) This recommendation is made due to ongoing intensive PT functional needs: patient has the need for more than one skilled therapy service;motivated to participate in therapy;patient demonstrates a significant functional decline and would benefit from skilled therapy intervention to restore function;patient has the ability to progress and demonstrate measurable gains as a result of skilled therapy (02/11/24 1308) Recommended Transportation Method: Stretcher/Ambulance (02/11/24 141) Modified Mervin Score: Preadmission Modified Mervin Score: 0 (01/26/24 0936) Current Modified [place] Score: 5 (02/11/24 1417) Procedures: Basilar artery??angioplasty 01/23/2024 PEG 01/30/24 Trach 02/05/2024 IMPRESSION - Acute ischemic stroke: Posterior circulation syndrome - 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 - Statin: Lipitor - VTE prevention with SCDs and Heparin - Allow permissive HTN - Maintain euglycemia, SSI - Off keppra now. Monitor for seizure activity. - PEG for nutrition and medication - PT/OT and speech therapy ongoing. - ICU for medical management. - LTACH placement pending - Wean vent as tolerated Travis Bhat, MSN, [employer]PORATE FIN[employer]CIAL ANALYST, MERCHANDISE FLOW MANAGER-C, SCRN, CNRN Interventional Vascular Neurology [facility] #[id number] ATTESTATION I have seen and examined the patient with the nurse practitioner. I have re- confirmed the paula elements of the history and performed an examination. I have discussed the patient's care with the nurse practitioner. Sustained improvement. Denied placement to LTAC by insurance. Appeal pending. COntinue to monitor for improvement in ventilation. 02/12/2024 Sherie Beltre MD Interventional Vascular Neurology [facility] . * Annamarie Bonilla RN - 02/12/2024 10:58 AM CDT Care Coordination Progress Note met with Dr Siegel and discussed DC plans, [facility] has submitted for auth. Anticipated level of care at discharge: [facility] ([facility]) Anticipated level of care provider: [facility] Anticipated Discharge Date: 02/15/24 Transportation at Discharge: other (TBD) Portions of this note have been copied from the medical record, but edited appropriately to accurately reflect the patient's current clinical state. Annamarie Bonilla RN Case Management - ICU 3N & 3S [facility] Ascom: [phone] O: [phone] * Chuy Siegel DO - 02/12/2024 9:03 AM CDT ICU Progress Note Subjective: Events: Waking up, moving right side more. More coughing noted overnight Symptoms: Patient denies pain and is now able to communicate symptoms with yes/no questions, but does not appear to be in any distress. Subjective: Filed Vitals: 02/12/24 0745 02/12/24 0800 02/12/24 0815 02/12/24 0830 BP: 122/69 Pulse: 78 83 85 82 Resp: 12 17 13 13 Temp: TempSrc: SpO2: 96% 95% 95% 95% Weight: Height: Artificial airway None Physical Exam: GENERAL APPEARANCE: Acutely ill appearing EYE: extraocular eye movements intact HEENT: NCAT, MMM copious secretions NECK: Supple Trach site CDI RESP: coarse to auscultation bilaterally. Referred vent sounds. CARDIO: Regular rate, rhythm without murmur. GI/AB: soft, nttp, normoactive bowel sounds SKIN: Normal to inspection. Warm, dry, supple, with no changes in moles or sores that will not heal. NEUROMUSC: withdraws to painful stimuli, moving left side purposefully, waking to verbal stimuli, smiling, answering yes/no questions. Moving right arm and more spontaneously. Output by Drain (mL) 02/10/24 0701 - 02/10/24 1900 02/10/24 1901 - 02/11/24 0700 02/11/24 0701 - 02/11/24 1900 02/11/24 1901 - 02/12/24 0700 02/12/24 0701 - 02/12/24 0903 Requested LDAs do not have output data documented. Peripheral IV Anterior;Right Forearm (Active) Placement Date/Time: 02/10/24 07 Size (Gauge): 18 G Orientation: Anterior;Right Location: ForearmSite Prep: Chlorhexidine Technique: Ultrasound Guidance Insertion attempts (FOR ED ONLY): 1 Number of days: 2 Peripheral IV Posterior;Right Hand (Active) Placement Date/Time: 02/12/24 0500 Size (Gauge): 20 G Orientation: Posterior;Right Location: Hand Technique: Anatomical Landmarks Number of days: 0 Enteral - Percutaneous Endoscopic Gastrostomy Abdomen;Midline;Upper (Active) Placement Date/Time: 01/30/24 1514 Placed by: Dr. Ruffin Type: Percutaneous Endoscopic Gastrostomy Tube Location: Abdomen;Midline;Upper Size (FR): 20 Lot Number: [id number] Procedure Tolerance: Sedated Number of days: 12 Trach Bivona (Active) Placement Date/Time: 02/05/24 0800 Person who placed: robbin Brand: Bivona Airway Device: Cuffed Cuff Type: Water (Bivona) Trach size: 8 MM Number of days: 7 Indwelling Transurethral Urinary Catheter (Active) Placement Date/Time: 02/06/24 2330 Placed by: Melony Peterson Size (FR): 16 Catheter Balloon Size: 10 mL Closed System Maintained This Shift: Yes, Seal Intact Number of attempts: 1 Procedure Tolerance: Well Number of days: 5 Laboratory Results Reviewed Radiology Reviewed Assessment: Hospital Day: Raza Vazquez is a 63 yom with histdory of CAD s/p CABG, obesity, HTN, HLD, DM II who presented to the ICU after an acute ischemic stroke. Timeline 01/22: Presented to ED after being found down. MRI with brainstem infarcts. 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 Transferred to ICU. 01/23: Sedation weaned. Following simple commands 01/24: Extubated 01/26: Worsening encephalopathy. cEEG initiated. Started on keppra. 01/27: EEG read normal 01/28: Transferred from ICU level of care to stroke service 01/29: PEG placed by GI 01/30: OOB to chair 02/01: Worsening mental status, not clearing secretions. ICU re-consulted. Intubated. 02/02: cont on vent support 02/03: consent obtained for trach. Cont TF and sedation. 02/04: tracheostomy 02/06: MRI for consistently poor mental status 02/07: started to wake and follow commands this AM. 02/08: cont vent weaning attempts. 02/09: trach exchanged for XLT bivona air 02/10: cont breathing trials. Tolerated ASV Plan: Respiratory: Acute hypoxic respiratory failure due to aspirations and acute ischemic stroke with poor secretion clearance - Lung protective ventilation with goal 6-8 cc/kg IBW - Maintain Drive pressure < 15, SaO2 > 90, HOB > 30 degrees, Plateau pressure < 30 cm H20 - Continue duonebs and hypertonic nebs - atropine drops for oral secretions -- Tracheostomy placed 02/04 - changed to hyperflex -- will wean vent resume SBT with goal trach collar as tolerated. -- rest on vent qhs -- wean ASV to 80% and cont SBT at trial higher drive pressures Aspiration PNA now with staph aureus on sputum - Completed 5 days of empiric ceftriaxone 01/27 - Sputum gram stain with MSSA -- ancef - stop date in place Cough - less productive. 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 - Avoid sedating medications like benzos and antipsychotics, as much as possible. - PT/OT with early mobility as appropriate - No clinical signs of seizure activity. ID: Sepsis with pulmonary source - improving - sputum cx with MSSA - cont ancef - Continue to monitor WBC and fever curve. Renal: BOLA - improving Hyponatremia, hyperphosphatemia, NS as above. - cont trending labs - Strict Is and Os GI/Diet: Malnutrition Diagnosis Severe Protein Calorie malnutrition in context of acute disease or injury was present on admission.Diagnosis is made in consultation with clinical nutrition who have implemented a care plan. - cont TFs - Continue supplements Endo: DM II - Continue SSI Q 6 - NPH 15 u q12hr Heme: DVT ppx - SQ heparin Prognosis: fair Family updates: family present and participated in MDR. All questions answered Code Status: Full Code Disposition: Case management planning LTAC transfer. Auth pending Critical Care Time: I personally spent 50 minutes providing Critical Care services, time was exclusive to this patient and does not include time spent teaching or in procedures. Chuy Siegel DO 02/12/24 9:03 AM Critical Care Medicine * Travis Dubose, RD/LDN - 02/12/2024 8:05 AM CDT Nutrition Re-Assessment Brief Synopsis: Patient at Nutrition Risk and meets criteria for Severe Protein Calorie malnutrition. Criteria from 01/30. Weight Change: Weight Loss: > or equal to 2% x 1 week Energy Intake: < 50% of estimated energy requirement for > 5 days Fat Loss Identified: none Muscle Loss Identified: mild Nutrition Plan: Continue Vital 1.2 at 75 ml/hr, water flush per MD / 1 protein additive daily. Discharge Needs: Nutritional Supplement at Discharge: N/A (tube feeding) Patient Summary: Pt continues to be followed for nutrition support. Pt remains on the vent via trach. TF is at goal and tolerating per nurse. FMS was removed 02/10. Labs reviewed. Nutrition care plan discussed today during multidisciplinary rounds. Assessment: Med/Surg History and Clinical Diagnoses: Multiple brainstem infarcts, acute respiratory failure, hypotension, poorly controlled DM, alcohol use disorder, PEG placed 01/29, trach placed 02/04; Hx: DM2, CAD, CABG 2018, anemia, HLD, obesity Diet order accuracy Current diet order: NPO Nutritional Supplement at Discharge: N/A (tube feeding) Current tube feeding order: Vital 1.2 at 75 ml/hr, water flush per MD / 1 protein additive daily (2160 kcal, 135 g pro, 1460 ml free water / 60 kcal, 15 g pro from additive) Nutrition recommendation: agree with current nutrition order Food Allergies: No known food allergies GI Concerns: None (FMS removed 02/10) Chewing/Swallowing: Other (Comment) (trach) Pain affecting intake: No Admission weight: Weight: 136.1 kg (300 lb) (01/23/24 1055) Weight Method : Stated (01/23/24 1055) Patient Vitals for the past 336 hrs: Weight Weight Method 02/12/24 0000 125.5 kg (276 lb 10.8 oz) Bed scale 02/11/24 0000 123.8 kg (273 lb) Bed scale 02/10/24 0000 123.8 kg (273 lb) Bed scale 02/09/24 0400 -- Bed scale 02/09/24 0000 122.5 kg (270 lb) Bed scale 02/08/24 0400 123 kg (271 lb 2.7 oz) Bed scale 02/07/24 0400 123 kg (271 lb 2.7 oz) Bed scale 02/06/24 0347 125 kg (275 lb 9.2 oz) Bed scale 02/05/24 0400 129.1 kg (284 lb 9.6 oz) Bed scale 02/04/24 0212 128.9 kg (284 lb 3.2 oz) Bed scale 02/03/24 0351 129 kg (284 lb 6.3 oz) Bed scale 02/02/24 0400 129 kg (284 lb 6.3 oz) Bed scale 02/01/24 0400 129 kg (284 lb 6.3 oz) Bed scale 01/31/24 0400 130.5 kg (287 lb 11.2 oz) Bed scale 01/30/24 0300 121.5 kg (267 lb 13.7 oz) Bed scale BMI: Body mass index is 33.68 kg/m??. BMI Range: Obese Class 1 WT Comments: Reviewed Component Name 02/12/24 0458 02/11/24 0402 02/10/24 0324 02/08/24 0526 01/30/24 0429 SODIUM 140 141 143 141 139 NA - - - - - POTASSIUM 3.9 4.4 3.6 3.9 4.1 CHLORIDE 112* 113* 112* 104 101 CL - - - - - CO2 24 26 BUN 27* 31* 29* 38* 17 CREATININE 0.82 0.75 0.83 0.95 0.80 GLUCOSE 166* 178* 126* 178* 146* CALCIUM 9.3 9.5 9.8 9.7 9.6 ALBUMIN - - - 2.1* 2.7* ALB - - - - - PHOS 4.6 4.5 3.7 - 3.7 ANIONGAP 4* 5* 8 13 12 MEDICATIONS FOR CURRENT ENCOUNTER: ?? SCHEDULED MEDICATIONS: ?? 0.9% NaCl injection 3 mL, Intracatheter, q8h ?? albuterol-ipratropium (Duo-Neb) nebulizer solution 3 mL, Inhalation, q6h ?? amLODIPine (Norvasc) tablet 10 mg, Enteral Tube, QDAY ?? aspirin chew tablet 81 mg, Enteral Tube, QDAY ?? atorvastatin (Lipitor) tablet 40 mg, Enteral Tube, AT BEDTIME ?? atropine 1 % ophthalmic solution 1 drop, Sublingual, q8h ?? ceFAZolin (Ancef) 2 g in 0.9% NaCl IV 50 mL IVPB, Intravenous, q8h ?? clopidogrel (plaVIX) tablet 75 mg, Enteral Tube, QDAY ?? famotidine (Pepcid) tablet 20 mg, Enteral Tube, BID ?? folic acid (Folvite) tablet 1 mg, Enteral Tube, QDAY ?? guaiFENesin (Robitussin) solution 10 mL, Enteral Tube, q6h ?? heparin injection 5,000 Units, Subcutaneous, BID ?? Hydrocod Nikhil-Chlorphe Nikhil ER (Tussionex) suspension 5 mL, Enteral Tube, q12h ?? insulin aspart (NovoLOG) pen 0-18 Units, Subcutaneous, q6h ?? insulin NPH pen 15 Units, Subcutaneous, q12h ?? magnesium sulfate 2 g in 50 mL bolus, Intravenous, Once ?? modafinil (Provigil) tablet 200 mg, Enteral Tube, QAM ?? multiple vitamins with minerals tablet 1 tablet, Enteral Tube, QDAY ?? thiamine (Vitamin B-1) tablet 100 mg, Enteral Tube, QDAY ?? [COMPLETED] amLODIPine (Norvasc) tablet 5 mg, Enteral Tube, Once ?? [COMPLETED] furosemide (Lasix) injection 40 mg, Intravenous, Once ?? [COMPLETED] glycopyrrolate (Robinul) injection 0.1 mg, Intravenous, Once ?? [COMPLETED] magnesium sulfate 2 g in 50 mL bolus, Intravenous, Once ?? [COMPLETED] potassium chloride (Klor-Con) packet 40 mEq, Enteral Tube, Once Skin/Wound: Exceptions per nursing assessment (swollen) Estimated Energy Needs: KCAL: 7503-5734 kcal/day (15-18 kcal/kg BW) / 2057 kcal/day ([place]) Protein (g): 138-184 g pro/day (1.5-2.0 g/kg IBW) (vent/obesity) Fluid (ml): Other (comments) (per MD) Needs based on: Kcal/kg- (Comment) (kcal - 125.5 kg 4/30, pro - 91.8 kg IBW) Recommended Access Route: TF Education needed: None Education Provided: Not appropriate Nutrition Care Process (1) Nutrition Diagnostic Statement: Inadequate oral intake related to:: decreased ability to consume or tolerate food and/or fluids due to illness as evidenced by:: --- (NPO) Nutrition Intervention: Enteral nutrition: Monitoring: - Nutrition support. - Weight, labs. Evaluation: Diagnostic Statement #1 Goals: Nutrition Goal: Enteral/Parenteral Nutrition prescription will be consistent with estimated nutrient needs Nutrition Goal Timeframe: Throughout stay Nutrition Goal Progress: Progressing toward goal;Continue with current goal * Travis Dubose RD/HAFSA - 02/12/2024 8:05 AM CDT Problem: Oral Intake: Inadequate oral intake Description: related to:: decreased ability to consume or tolerate food and/or fluids due to illness Goal: Enteral/parenteral nutrition prescription will be consistent with estimated needs Description: Raza Cummins's Nutrition Goal: Enteral/Parenteral Nutrition prescription will be consistent with estimated nutrient needs Nutrition Goal Timeframe: Throughout stay Outcome: Progressing Note: Pt remains on the vent. TF is at goal via PEG. Continue care plan. * Lily Osorio RCP - 02/12/2024 2:22 AM CDT Patient is mechanically ventilated mode ASV MV 80% PEEP +5 FIO2 21%. Patient will continue to be ventilated. Will continue to SBT and assess as able. Spontaneous Breathing Trial Times Ventilator Liberation Times Ventilator Liberation Time ON: 0345 Ventilator Liberation Time OFF: 0424 Initial Settings PSV settin CPAP Settings cm H2O (Initial): 5 Subsequent Settings PSV settin CPAP Settings cm H2O (Subsequent): 5 Results Comments Passed Ventilator Liberation?: No Cuff leak test completed?: Not performed Ventilator Liberation Comments: Patient's RR increased in 40s and low tidal volume in 200s, Patientwas placed back on ASV 80%, +5, 21% * Emelia Yoo RN - 02/11/2024 9:24 PM CDT Problem: Tobacco Use Goal: Inpatient tobacco-use cessation counseling participation Outcome: Progressing Problem: Fall Risk Goal: Patient will remain free of falls Outcome: Progressing Problem: Skin Integrity Goal: Skin integrity is maintained or improved Outcome: Progressing Problem: Neurological Deficit Goal: Neurological status is stable or improving Outcome: Progressing Problem: Oral Intake: Inadequate oral intake Description: related to:: decreased ability to consume or tolerate food and/or fluids due to illness Goal: Enteral/parenteral nutrition prescription will be consistent with estimated needs Description: Raza Francis Nutrition Goal: Enteral/Parenteral Nutrition prescription will be consistent with estimated nutrient needs Nutrition Goal Timeframe: Throughout stay Outcome: Progressing Problem: Ineffective breathing pattern related to obstructive sleep apnea Goal: Maintains optimal sleep pattern, as evidenced by relaxed breathing at normal rate and depth. Outcome: Progressing Goal: Adheres to CPAP (Continuous Positive Airway Pressure) device regimen as prescribed. Outcome: Progressing Problem: Sleep deprivation related to sleep apnea. Goal: Achieves restful, refreshing sleep pattern. Outcome: Progressing Problem: Pain/Discomfort Goal: Patient exhibits reduced pain/discomfort as evidenced by pain scores Outcome: Progressing Goal: Patient uses pharmacological and non-pharmacological pain management strategies. Outcome: Progressing Goal: Patient verbalizes acceptable level of pain relief and ability to engage in desired activity. Outcome: Progressing Problem: Potential for Urinary Catheter-Associated Infection Goal: Signs and Symptoms of urinary catheter-associated infection are avoided Outcome: Progressing Problem: Hemodynamic Status/Cardiac Output Goal: Patient has stable vital signs and fluid balance Outcome: Progressing * Yenni Geronimo, OT - 02/11/2024 2:33 PM CDT OT ICU TREATMENT SUMMARY Chart reviewed for diagnosis and medical systems review. RN consented for OT. Explained purpose of OT and patient consented to participate in therapy. RECOMMENDATIONS/PLAN: OT Discharge Recommendations: Patient would benefit from intensive 3-hour multidisciplinary therapy This recommendation is made due to ongoing intensive OT functional needs: ability to actively participate in intensive therapy 3 hours/day, 5 days a week;patient has the need for more than one skilled therapy service;motivated to participate in therapy;not at baseline due to impaired ability to complete ADL's;functional mobility is significantly below baseline;likely to return to the community atdischarge with support system;patient and/or caregiver require specialized training;patient has theability to progress and demonstrate measurable gains as a result of skilled therapy;patient demonstrates a significant functional decline and would benefit from skilled therapy intervention to restore function Recommended Transportation Method: Stretcher/Ambulance PPE worn by staff: gloves AM-PAC Daily Activity score for this patient is Daily Activity Raw Score:: 7 Precautions: vent via trach; PEG; FMS; NPO; PIV; beltran; fall; skin; L soft wrist trestraint; L eye ptosis SUBJECTIVE Pt able to give thumbs up when asked how he was. He was able to shake his head yes/no appropriately too. He then was able to mouth the word Christi to name the daughter that was present during therapy. Pain Assessment: Pain Location #1 Pain Scale/Observation: Numeric (0-10) Pain Rating Score #1: 0 (shook head no every time OT asked about pain) Sedation Level #1: 1-Awake and alert OBJECTIVE: Cognition: Orientation Level: Oriented to Person;Oriented to Place (shook head yes when asked if his name was Raza and if he was in the hospital) Level of Consciousness-Adult: Alert Cognition: Follows one step commands;Attention/concentration-decreased;Processing-delayed ADLs (Based on observation and clinical judgement): Feeding: Total Assistance (PEG) Oral Facial Hygiene: Stand By Assist (wash face with L hand) Lower Body Dressing: Total Assistance (don socks) Toileting: Total Assistance (beltran and FMS) Transfers: Supine to Sit: Total Assistance;X 2 (+ RT to manage trach) Sit to Supine: Total Assistance;X 2 (+ RT to manage trach) Balance: sitting balance fluctuated from SBA to max assist with L posterior lean Activity Tolerance and Oxygen Requirements: $ O2 DEVICE: Ventilator $ O2 % (FiO2): 21 % Vital signs: BP taken on R UE BP 150/92 (111) 156/97 (116) 157/97 (117) HR (bpm) 85 82 86 RR (breaths/min) SpO2 (%) 97 100 96 LPM Trach via vent Trach via vent Trach via vent O2 source 21% 21% 21% Position HOB 30* HOB 0* HOB 90* Sitting: BP 144/102 (116), O2 96; HR 91 Sitting for 10 min: 153/106 (121); O2 95%; HR 88 Ventilator Settings: Mode P-Support PEEP 5 %FiO2 21 ASSESSMENT: The pt did really well in therapy. He was able to shake head yes/no and give thumbs up to OT to answer questions and his answers were 100% accurate. He was able to wash his face with his L hand with SBA. He also performed LUE AROM shoulder ex's to 90* - 5x and RUE AAROM shoulder ex's to 90* - 5x.PT then came in and a co-treat was performed to assist with getting the pt sitting at the EOB. Respiratory therapy was in the room the entire time also to manage the trach. The pt requiredtotal assist x 2 and (assist form RT managing trach) to sit at the EOB. He was able to sit up for 14 min with balance fluctuating between SBA to max assist when he had L posterior lean. PT worked on LE activities with the pt, while OT worked on hand placement and support with balance. He tolerated sitting up so well, that PT decided to put him in the Combolizer chair. She was laid back down in bed with total assist x 2 and then transferred via lateral move to the Combolizer with total assist x 3 with RT managing trache. He was positioned comfortably in the chair and was left sitting up with his daughter present in room. The pt will require 24/ supervision/assist and continued OT services at discharge. All lines, monitors, IV's, equipment in place and intact pre and post visit. RN, January, notified of patient's performance/location end of session. Pt and family/caregiver educated on bed mobility, transfers, hand placement, grooming, toileting, sitting balance, overall safety, UE exercises. Education Provided: Pt educated in OT plan of care, fall precautions, and benefits of participatingin ADL tasks. See Filed Flowsheet under Summary for details. If this is the last Occupational Therapy visit, this serves as the discharge summary. Yenni BRAVO/Boris ext. [phone] * Macho Solis - 02/11/2024 2:27 PM CDT Physical Therapy ICU Re-Evaluation Orders received. Chart reviewed for diagnosis and medical systems review. RN consented for PT. Explained purpose of PT and patient consented to participate in therapy. A??63 year old??male??was admitted with PMH of DM, HTN, alcohol abuse??who presented on 01/23/2024 10:27 AM??with chief complaint of unresponsiveness.??He was found down at his home by the recharger person he had scheduled to visit his home today. His last known well was not clear. I spoke with his sister who said they had not seen or spoken to him in the last 24 hrs. He??was able to follow some command upon arrival to the hospital but had a hard time moving his lower limbs. MRI brain stat was quickly obtained showing multiple infarcts in the brainstem including the left midbrain and left thalamus and right periventricular region. 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 Decision to take to IVR for exploration and potential management. He was intubated in the ER for airway protection.??CTH stable. Family reports L pupil has been larger for 2+months. Extubated 01/24. Reported seizure activity on 01/26, started on Keppra. ??No further seizure since. -??Acute ischemic stroke: Posterior circulation syndrome -Critical Basilar stenosis/thrombosis s/p successful angioplasty MRI 02/06 showed new infarcts/progression of old - indicated due to persistent poor mental status RECOMMENDATIONS/PLAN: continue acute PT services with progression of EOB/OOB activities as tolerated Combolizer to progress sitting tolerance Plan to trial travis steady for sit <> stand when appropriate Coordinate with RT due to trach on a vent PT Discharge Recommendations: Patient would benefit from intensive 3-hour multidisciplinary therapy This recommendation is made due to ongoing intensive PT functional needs: patient has the need for more than one skilled therapy service;motivated to participate in therapy;patient demonstrates a significant functional decline and would benefit from skilled therapy intervention to restore function;patient has the ability to progress and demonstrate measurable gains as a result of skilled therapy Recommended Transportation Method: Stretcher/Ambulance PPE worn by staff: gloves AM-PAC Basic mobility score for this patient is Mobility Raw Score:: 7 Precautions: Full code, Fall, SBP 120-180, Trach, PEG, PIV, Central line, FMS, Beltran, safety, left soft wrist restraint, left eye Ptosis SUBJECTIVE:Subjective: Pt consented to therapy services PLOF: Type of Residence: Private Residence Lives with:: Alone Home Structure: One Story;Basement Steps to Enter: ( Yes I don't know ) Bathroom : Tub/Shower Combo Equipment at Home: None Mobility: Ambulate-In Community;Ambulate-In Home ;Driving Fallen Within 6 Mos: No Prior Level of Function Mobility: Ambulate-In Community;Ambulate-In Home ;Driving Fallen Within 6 Mos: No Have Help at Home?: No help at home now Who assists you at home?: Friends/Family Oxygen at Home: No Activity at Home: Active;Driving Vision: No impairment Hearing Exceptions: No impairment Who manages medications?: self Have Help at Home?: No help at home now Activity at Home: Active;Driving Who manages medications?: self Pain Assessment: Pain Location #1 Pain Scale/Observation: Behaviors Pain Rating Score #1: 0 Sedation Level #1: 1-Awake and alert OBJECTIVE: Cognition: Orientation Level: Oriented to Person Cognition: Follows one step commands;Processing-delayed Level of Consciousness-Adult: Alert;Eyes Open Spontaneously Participation: Active Participation ROM and Strength: ANTELMO L UE/LE WFL for mobility tasks during session. Antelmo R UE/LE WFL for mobility tasks during session. All extremities able to move and hold against gravity, antelmo machine pack assembler equal WFL. Sensation: Sensation - Right Lower Extremity: Within Normal Limits Sensation - Left Lower Extremity: Within Normal Limits Balance: Sitting - Static: Fair;With Both Upper Extremity's Support Sitting - Dynamic: Fair -;Fair;With One Upper Extremity Support Bed Mobility: Rolling: Total Assistance Supine to Sit: Total Assistance;X 2 Sit to Supine: Total Assistance;X 2 Transfers: Sit to Stand: Activity Does Not Occur Stand to Sit: Activity Does Not Occur Bed to Chair: Total Assistance;X 3;Other (Comment) (to RT wally for vent management) Type of Transfer: Lateral Transfer Mobility: Distance Ambulated (ft): 0 FEET Ambulation: Level of Assistance: Activity Does Not Occur Activity Tolerance: Activity Tolerance: Requires rest breaks Vital signs: BP taken on L UE Vitals monitored throughout and stable. Orthostatics taken and negative, ranging from 157-144 systolic while asymptomatic. Improved from my last session where pt was orthostatic ASSESSMENT: Pt tolerated session well with stable vitals and denying dizziness, SOB, and other adverse s/s. Pt supine in bed with OT at start of session, RT present throughout session to manage vent through trach. Pt with improved mentation and R UE/LE usage compared to my last visit with him on the 31 of January. Pt remains with ptosis of L eye lid, R eye presenting in downward adducted position. Pt seems to prefer downward gaze with antelmo eyes despite stimulation and cues to track, pt appearing to attempt to track. Pt inconsistent/delayed with tracking. Pt able to give correct answers with vision testing given adequate time and head tilt to compensate for tracking, including with L eye with PT assisting eyelid open. Pt attended to all commands with repetition, tactile and verbal cueing. and was able to initiate and hold against gravity with both R extremities. Pt able to tolerate ~10-15 minutes EOB sitting for activity with PT/OT including balance, ROM, strength, trunk flex/ext, face hygiene and weightbearing. Overall, pt remains with functional mobility decline with impairments listed below and increased [id number] with new trach on a vent. Pt billed as re-eval as since the initial evaluation he has had new trach with both new and progressive acute infarcts noted on CT's. Pt remains a good candidate for acute rehab, see recommendations. Pt lateral transferred to [employer] at end of session to work on sitting tolerance, RN notified ofposition and plan to sit up ~3 hours. Call light and phone in reach with alarm activated. All lines, monitors, IV's, equipment in place and intact pre and post visit. RN notified of patient's performance/location end of session. Education Provided: Pt educated in PT plan of care, fall precautions, and benefits of participatingin out of bed activity. Problem list: Decreased strength, decreased AROM, decreased endurance, decreased balance, impaired functional mobility, impaired safety awareness, impaired cardiopulmonary function Functional limitation: Decreased independence with ambulation/transfers; decreased safety with functional mobility. Rationale for therapy: Patient will benefit from PT to address the above issues. Patient will be seen for:strengthening, functional transfers, balance, endurance, exercise. Refer to Plan of Care for PT goals. See Filed Flowsheet PT eval for further details. RECOMMENDATIONS/PLAN: Pt has experienced a significant decline from PLOF and would benefit from PT to maximize functional mobility/transfer independence and safety. PT will continue to follow during the acute stay. Progress as tolerated. If this is the last Physical Therapy visit, this serves as the discharge summary. Davon SPT Ascom [phone] * Annamarie Bonilla, ZACHARY - 02/11/2024 12:40 PM CDT Care Coordination Progress Note CM met with Dr Siegel and discussed POC, ICU LOS and DC plans: asked about readiness for LTAC, per Dr Siegel the pt is ready. CM notified Zeina with [employer] to submit for auth. PC from Diane Mckee (Sister) updated her on the status. Anticipated level of care at discharge: Intermediate Acute Care (LTAC) Anticipated level of care provider: [facility] ODELL SCHULTE Anticipated Discharge Date: 02/12/24 Transportation at Discharge: other (TBD) Portions of this note have been copied from the medical record, but edited appropriately to accurately reflect the patient's current clinical state. Annamarie Bonilla RN Case Management - ICU 3N & 3S [facility] Ascom: [phone] O: [phone] * Sherie Beltre MD - 02/11/2024 11:35 AM CDT INTERVENTIONAL STROKE NEUROLOGY PROGRESS NOTE Hospital Day: 19 A 63 year old male was admitted with PMH of DM, HTN, alcohol abuse who presented on 01/23/2024 10:27AM with chief complaint of unresponsiveness. He was found down at his home by the recharger person he had scheduled to visit his home today. His last known well was not clear. I spoke with his sister who said they had not seen or spoken to him in the last 24 hrs. He was able to follow some command upon arrival to the hospital but had a hard time moving his lower limbs. Suspicion of posterior circulation stroke was entertained. MRI brain stat was quickly obtained showing multiple infarcts in the brainstem including the left midbrain and left thalamus and right periventricular region. 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 Decision to take to IVRfor exploration and potential management. He was intubated in the ER for airway protection. CTH stable. Family reports L pupil has been larger for 2+months. Extubated 01/24. Reported seizure activity on 01/26, started on Keppra. No further seizure since. PEG placed for neurogenic dysphagia, TF restarted. Re- intubated and sedated on 02/01 due to respiratory failure. Trach placed. 02/11/2024: Patient seen laying in bed, he is doing much better. Mouthing words. Still on the vent, failed SBT. Will likely need LTAC placement. Called daughter, updated on plan of care. MEDICATIONS FOR CURRENT ENCOUNTER: SCHEDULED MEDICATIONS: 0.9% NaCl injection 3 mL, Intracatheter, q8h albuterol-ipratropium (Duo-Neb) nebulizer solution 3 mL, Inhalation, q6h amLODIPine (Norvasc) tablet 5 mg, Enteral Tube, Once aspirin chew tablet 81 mg, Enteral Tube, QDAY atorvastatin (Lipitor) tablet 40 mg, Enteral Tube, AT BEDTIME ceFAZolin (Ancef) 2 g in 0.9% NaCl IV 50 mL IVPB, Intravenous, q8h chlorhexidine (Peridex) 0.12 % oral solution 15 mL, Mouth/Throat, BID clopidogrel (plaVIX) tablet 75 mg, Enteral Tube, QDAY famotidine (Pepcid) tablet 20 mg, Enteral Tube, BID folic acid (Folvite) tablet 1 mg, Enteral Tube, QDAY guaiFENesin (Robitussin) solution 10 mL, Enteral Tube, q6h heparin injection 5,000 Units, Subcutaneous, BID insulin aspart (NovoLOG) pen 0-18 Units, Subcutaneous, q6h insulin NPH pen 15 Units, Subcutaneous, q12h magnesium sulfate 2 g in 50 mL bolus, Intravenous, Once modafinil (Provigil) tablet 200 mg, Enteral Tube, QAM multiple vitamins with minerals tablet 1 tablet, Enteral Tube, QDAY thiamine (Vitamin B-1) tablet 100 mg, Enteral Tube, QDAY [COMPLETED] magnesium sulfate 2 g in 50 mL bolus, Intravenous, Once [COMPLETED] potassium chloride (Klor-Con) packet 40 mEq, Enteral Tube, q4h [] fentaNYL (PF) (Sublimaze) injection 25 mcg, Intravenous, Once ??? [START ON 02/12/2024] amLODIPine (Norvasc) tablet 10 mg, Enteral Tube, QDAY ??? CONTINUOUS MEDICATIONS: PRN MEDICATIONS: Or Or 0.9% NaCl injection 1-10 mL, Intracatheter, PRN acetaminophen (Tylenol) tablet 650 mg, Enteral Tube, q4h PRN atropine 1 % ophthalmic solution 2 drop, Sublingual, q6h PRN dextrose 10 % IV bolus, Intravenous, PRN dextrose 10 % IV bolus, Intravenous, PRN glucagon (Glucagen) injection 1 mg, Subcutaneous, PRN hydrALAZINE (Apresoline) injection 10 mg, Intravenous, q1h PRN ondansetron (Zofran) injection 4 mg, Intravenous, q4h PRN ??? prochlorperazine (Compazine) injection 10 mg, Intravenous, q4h PRN Peripheral IV Anterior;Right Forearm (Active) Placement Date/Time: 02/10/24 0700 Size (Gauge): 18 G Orientation: Anterior;Right Location: ForearmSite Prep: Chlorhexidine Technique: Ultrasound Guidance Insertion attempts (FOR ED ONLY): 1 Number of days: 1 Fecal Drainage Device With balloon (Active) Placement Date/Time: 02/06/24 1316 Person who placed: ZACHARY Christine Fecal Incontinence Device: With balloon Number of days: 4 Enteral - Percutaneous Endoscopic Gastrostomy Abdomen;Midline;Upper (Active) Placement Date/Time: 01/30/24 1514 Placed by: Dr. Ruffin Type: Percutaneous Endoscopic Gastrostomy Tube Location: Abdomen;Midline;Upper Size (FR): 20 Lot Number: [id number] Procedure Tolerance: Sedated Number of days: 11 Trach Bivona (Active) Placement Date/Time: 02/05/24 0800 Person who placed: robbin Brand: Bivona Airway Device: Cuffed Cuff Type: Water (Bivona) Trach size: 8 MM Number of days: 6 Indwelling Transurethral Urinary Catheter (Active) Placement Date/Time: 02/06/24 2330 Placed by: Melony Peterson Size (FR): 16 Catheter Balloon Size: 10 mL Closed System Maintained This Shift: Yes, Seal Intact Number of attempts: 1 Procedure Tolerance: Well Number of days: 4 BP (!) 160/101 (BP Location: Right arm, Patient Position: Lying) Pulse 82 Temp 98.7 ??F (37.1 ??C) (Axillary) Resp 30 Ht 1.93 m (6' 4 ) Wt 123.8 kg (273 lb) SpO2 100% Wt Readings from Last 3 Encounters: 02/11/24 123.8 kg (273 lb) 09/17/23 (!) 148.6 kg (327 lb 9.6 oz) 05/07/23 (!) 145.2 kg (320 lb) Multisystem Examination: Neck: Limited due to Trach Respiratory: No respiratory distress. Cardiovascular: Normal heart rate, Normal rhythm. GI: Soft, No tenderness Integument: Warm, Dry Neurological Examination: The patient is trached, awake, and following commands. Speech is mouths words. L Pupils 4 non-reactive not responding to threat. Right pupil 3 mm reactive. Motor/Sensory: No involuntary movements were observed. Moving all limbs against gravity. Coordination: Unable to perform finger to nose. Gait: Not tested due to patient condition. Labs Recent Labs Component Name 02/04/24 0328 01/24/24 0443 07/23/20 0649 01/20/19 1134 CHOL - 229* 254* 258* TRIG 190* 179* 179* 63 HDL - 32* 48 63 LDLCALC - 161* 173* 179* Recent Labs Component Name 02/11/24 0402 02/10/24 0324 02/09/24 0441 02/08/24 1153 02/08/24 0526 01/31/24 1116 01/30/24 0429 01/29/24 0259 SODIUM 141 143 142 - 141 - 139 140 POTASSIUM 4.4 3.6 3.8 - 3.9 - 4.1 4.1 CHLORIDE 113* 112* 110* - 104 - 101 100 CO2 - - 27 BUN 31* 29* 33* - 38* - 17 15 CREATININE 0.75 0.83 0.89 - 0.95 - 0.80 0.74 GLUCOSE 178* 126* 112* - 178* - 146* 135* CALCIUM 9.5 9.8 9.4 - 9.7 - 9.6 9.3 ALBUMIN - - - - 2.1* - 2.7* 2.7* ALKPHOS - - - - 193* - 81 90 ALT - - - - 73* - 9 10 AST - - - - 62* - 14 14 TBIL - - - - 0.3 - 0.2 0.2 TPROT - - - - 8.0 - 7.8 8.2 EGFR >90 >90 >90 - 89* - >90 >90 - = values in this interval not displayed. Evaluation: CT head 01/22: 1. No acute intracranial hemorrhage. 2. Involutional changes with chronic lacunar infarctions and ischemic microangiopathy. 3. Age indeterminate infarction left thalamus and less likely a sequela of trans-synaptic degeneration. MRI brain if there is concern for acute ischemia. CT head 01/23: No acute intracranial hemorrhage. Stable chronic findings. CT angio: Short segment severe, string-like stenosis of the lower basilar artery just above the vertebral confluence. Cerebral Angiogram Impression 01/23/2024: A severe stenosis in the proximal basilar artery, s/p successful balloon angioplasty. Residual stenosis about 50% in lateral view MRI Brain: 1. New 11 x 6 mm acute infarction within the right periatrial white matter/major forceps. 2. There is expected evolution of previously demonstrated acute infarctions within the left thalamus and extending into the midbrain as well as the right frontal merchant radiata as compared with 01/23/2024. 3. Persistent global involutional changes, chronic right basal ganglia lacunar infarction and underlying ischemic microangiopathy. Echo: ??? Left??Ventricle: Left ventricle size is normal. Mildly to moderately increased wall thickness. Normal systolic function. EF 50-55%. Normal wall motion. Diastolic function is indeterminate. ??? Right??Ventricle: Right ventricle is not well visualized. ??? Aortic??Valve: Mild regurgitation. EKG: Results for orders placed or performed during the hospital encounter of 01/23/24 EKG 12-LEAD Result Value Ref Range Ventricular Rate 96 BPM Atrial Rate 96 BPM P-R Interval 146 ms QRS Duration ms 78 ms Q-T Interval ms 360 ms QTC Calculation (Bezet) 454 ms Calculated P [place] 79 degrees Calculated R [place] 76 degrees Calculated T [place] -77 degrees Interpretation EKG Normal sinus rhythm ST & T wave abnormality, consider inferolateral ischemia Abnormal ECG When compared with ECG of 26-JUL-2022 16:28, Premature ventricular complexes are no longer Present Non-specific change in ST segment in Anterior leads Inverted T waves have replaced nonspecific T wave abnormality in Inferior leads T wave amplitude has increased in Anterior leads Confirmed by JUSTICE PURVIS MD ([id number]) on 01/23/2024 2:35:44 PM Tele: Cardiac Rhythm: Sinus Rhythm (02/11/24 1000) LDL: Recent Labs Component Name 01/24/24 0443 07/23/20 0649 01/20/19 1134 LDLCALC 161* 173* 179* HgBA1C: Recent Labs Component Name 01/23/24 1039 09/17/23 1330 10/18/22 1045 HGBA1C 6.1* 6.5 5.9 This patient will benefit from a SGLT-2 or GLP-1, this requires close follow up with PCP or endocrine and lab monitoring. Due to this reason deferred treatment until outpatient follow up. Initial documented NIHSS Score: NIH Total: 13 (01/23/24 1048) Last Documented NIHSS Score: NIH Total: 14 (02/11/24 0800) Depression Screen Score = Does not meet criteria for screening: Intubation PHQ-2 PHQ-9 Therapy Recommendations: Discharge Discharge Equipment Recommendations: To Be Determined (01/29/24 1429) OT Discharge Recommendations: Patient would benefit from intensive 3-hour multidisciplinary therapy(02/10/24 1240) This recommendation is made due to ongoing intensive OT functional needs: ability to actively participate in intensive therapy 3 hours/day, 5 days a week;patient has the need for more than one skilled therapy service;motivated to participate in therapy;not at baseline due to impaired ability to complete ADL's;functional mobility is significantly below baseline;likely to return to the community atdischarge with support system;patient and/or caregiver require specialized training;patient demonstrates a significant functional decline and would benefit from skilled therapy intervention to restore function;patient has the ability to progress and demonstrate measurable gains as a result of skilled therapy (02/10/24 1240) PT Discharge Recommendations: Patient would benefit from intensive 3-hour multidisciplinary therapy(02/10/24 1300) This recommendation is made due to ongoing intensive PT functional needs: motivated to participate in therapy;patient has the need for more than one skilled therapy service;functional mobility is significantly below baseline (02/10/24 1300) Recommended Transportation Method: Stretcher/Ambulance (02/10/24 1300) Modified Mervin Score: Preadmission Modified Mervin Score: 0 (01/26/24 0936) Current Modified [place] Score: 5 (02/01/24 1405) Procedures: Basilar artery??angioplasty 01/23/2024 PEG 01/30/24 Trach 02/05/2024 IMPRESSION - Acute ischemic stroke: Posterior circulation syndrome - 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 - Statin: Lipitor - VTE prevention with SCDs and Heparin - Allow permissive HTN - Maintain euglycemia, SSI - Off keppra now. Monitor for seizure activity. - PEG for nutrition and medication - PT/OT and speech therapy ongoing. - ICU for medical management. - LTACH placement pending if unable to wean vent - Wean vent as tolerated Travis Bhat, MSN, CORPORATE FINANCIAL ANALYST, MERCHANDISE FLOW MANAGER-C, SCRN, CNRN Interventional Vascular Neurology [facility] #[id number] ATTESTATION I have seen and examined the patient with the nurse practitioner. I have re- confirmed the paula elements of the history and performed an examination. I have discussed the patient's care with the nurse practitioner. More awake today and interactive. Still reliant on the ventilator. We will continue to wean vent and possibly discharge to Ltach as appropriate 02/11/2024 Sherie Beltre MD Interventional Vascular Neurology [facility] * Cony Tapia, NETWORK RELATIONS CONSULTANT - 02/11/2024 10:34 AM CDT Speech Pathology: ST following per trach order set Pt remains on vent support and not appropriate for ST/PMSV trials at this time. Will continue to follow as appropriate. CHARI JasmineS, CCC-NETWORK RELATIONS CONSULTANT Ext. [phone] 02/11/2024 * Travis Dubose, GEORGES/LDN - 02/11/2024 10:30 AM CDT CLINICAL NUTRITION Pt discussed in rounds today. Pt remains on the vent via trach. TF is at goal via PEG and tolerating per nurse. FMS output has decreased with nothing out overnight. Plan to remove today per MD. Labs reviewed. Current diet order: NPO Current tube feeding order: Vital 1.2 at 75 ml/hr, water flush per MD / 1 protein additive daily (2160 kcal, 135 g pro, 1460 ml free water / 60 kcal, 15 g pro from additive) MEDICATIONS FOR CURRENT ENCOUNTER: ?? SCHEDULED MEDICATIONS: ?? 0.9% NaCl injection 3 mL, Intracatheter, q8h ?? albuterol-ipratropium (Duo-Neb) nebulizer solution 3 mL, Inhalation, q6h ?? amLODIPine (Norvasc) tablet 5 mg, Enteral Tube, Once ?? aspirin chew tablet 81 mg, Enteral Tube, QDAY ?? atorvastatin (Lipitor) tablet 40 mg, Enteral Tube, AT BEDTIME ?? ceFAZolin (Ancef) 2 g in 0.9% NaCl IV 50 mL IVPB, Intravenous, q8h ?? chlorhexidine (Peridex) 0.12 % oral solution 15 mL, Mouth/Throat, BID ?? clopidogrel (plaVIX) tablet 75 mg, Enteral Tube, QDAY ?? famotidine (Pepcid) tablet 20 mg, Enteral Tube, BID ?? folic acid (Folvite) tablet 1 mg, Enteral Tube, QDAY ?? guaiFENesin (Robitussin) solution 10 mL, Enteral Tube, q6h ?? heparin injection 5,000 Units, Subcutaneous, BID ?? insulin aspart (NovoLOG) pen 0-18 Units, Subcutaneous, q6h ?? insulin NPH pen 15 Units, Subcutaneous, q12h ?? magnesium sulfate 2 g in 50 mL bolus, Intravenous, Once ?? modafinil (Provigil) tablet 200 mg, Enteral Tube, QAM ?? multiple vitamins with minerals tablet 1 tablet, Enteral Tube, QDAY ?? thiamine (Vitamin B-1) tablet 100 mg, Enteral Tube, QDAY ?? [COMPLETED] fentaNYL (PF) (Sublimaze) injection 25 mcg, Intravenous, Once ?? [COMPLETED] magnesium sulfate 2 g in 50 mL bolus, Intravenous, Once ?? [COMPLETED] midazolam (Versed) injection 1 mg, Intravenous, Once ?? [COMPLETED] potassium chloride (Klor-Con) packet 40 mEq, Enteral Tube, q4h ?? [] fentaNYL (PF) (Sublimaze) injection 25 mcg, Intravenous, Once ?? [START ON 02/12/2024] amLODIPine (Norvasc) tablet 10 mg, Enteral Tube, QDAY Component Name 02/11/24 0402 02/10/24 0324 02/09/24 0441 SODIUM 141 143 142 POTASSIUM 4.4 3.6 3.8 CHLORIDE 113* 112* 110* CO2 23 24 BUN 31* 29* 33* CREATININE 0.75 0.83 0.89 GLUCOSE 178* 126* 112* CALCIUM 9.5 9.8 9.4 EGFR >90 >90 >90 EGFRAFR - - - Blood Sugar Range Past 24 hours: Glucose Bedside (mg/dL) Av.3 mg/dL Min: 168 mg/dL Max: 207 mg/dL Last BM (Date): 02/10/24 (FMS in place) Bowel Sounds (All Quadrants): Active (per nursing documentation) Nutrition Issues/Plan: Continue Vital 1.2 at 75 ml/hr, water flush per MD / 1 protein additive daily. Monitor per nutrition guidelines. ASCOM [phone] * Chuy Siegel, - 02/11/2024 8:22 AM CDT ICU Progress Note Subjective: Events: Waking up, moving right side more Symptoms: Patient denies pain and is now able to communicate symptoms with yes/no questions, but does not appear to be in any distress. Subjective: Filed Vitals: 02/11/24 0530 02/11/24 0543 02/11/24 0545 02/11/24 0700 BP: 110/73 108/74 Pulse: 73 74 75 72 Resp: 15 14 12 Temp: TempSrc: SpO2: 97% 97% 97% 97% Weight: Height: Artificial airway None Physical Exam: GENERAL APPEARANCE: Acutely ill appearing EYE: pupils equal and reactive, extraocular eye movements intact HEENT: NCAT, MMM copious secretions NECK: Supple Trach site CDI RESP: coarse to auscultation bilaterally. Referred vent sounds. CARDIO: Regular rate, rhythm without murmur. GI/AB: soft, nttp, normoactive bowel sounds SKIN: Normal to inspection. Warm, dry, supple, with no changes in moles or sores that will not heal. NEUROMUSC: withdraws to painful stimuli, moving left side purposefully, waking to verbal stimuli, smiling, answering yes/no questions appropriately. Moving right arm and leg more spontaneously. Output by Drain (mL) 02/09/24 0701 - 02/09/24 1900 02/09/24 190 - 02/10/24 0702/10/24 0701 - 02/10/24 1900 02/10/24 190 - 02/11/24 0702/11/24 07 - 02/11/24 0822 Requested LDAs do not have output data documented. Peripheral IV Anterior;Right Forearm (Active) Placement Date/Time: 02/10/24 07 Size (Gauge): 18 G Orientation: Anterior;Right Location: ForearmSite Prep: Chlorhexidine Technique: Ultrasound Guidance Insertion attempts (FOR ED ONLY): 1 Number of days: 1 Fecal Drainage Device With balloon (Active) Placement Date/Time: 02/06/24 1316 Person who placed: ZACHARY Christine Fecal Incontinence Device: With balloon Number of days: 4 Enteral - Percutaneous Endoscopic Gastrostomy Abdomen;Midline;Upper (Active) Placement Date/Time: 01/30/24 1514 Placed by: Dr. Ruffin Type: Percutaneous Endoscopic Gastrostomy Tube Location: Abdomen;Midline;Upper Size (FR): 20 Lot Number: [id number] Procedure Tolerance: Sedated Number of days: 11 Trach Bivona (Active) Placement Date/Time: 02/05/24 0800 Person who placed: robbin Brand: Bivona Airway Device: Cuffed Cuff Type: Water (Bivona) Trach size: 8 MM Number of days: 6 Indwelling Transurethral Urinary Catheter (Active) Placement Date/Time: 02/06/24 2330 Placed by: Melony Peterson Size (FR): 16 Catheter Balloon Size: 10 mL Closed System Maintained This Shift: Yes, Seal Intact Number of attempts: 1 Procedure Tolerance: Well Number of days: 4 Laboratory Results Reviewed Radiology Reviewed Assessment: Hospital Day: Raza Vazquez is a 63 yom with histdory of CAD s/p CABG, obesity, HTN, HLD, DM II who presented to the ICU after an acute ischemic stroke. Timeline 01/22: Presented to ED after being found down. MRI with brainstem infarcts. 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 Transferred to ICU. 01/23: Sedation weaned. Following simple commands 01/24: Extubated 01/26: Worsening encephalopathy. cEEG initiated. Started on keppra. 01/27: EEG read normal 01/28: Transferred from ICU level of care to stroke service 01/29: PEG placed by GI 01/30: OOB to chair 02/01: Worsening mental status, not clearing secretions. ICU re-consulted. Intubated. 02/02: cont on vent support 02/03: consent obtained for trach. Cont TF and sedation. 02/04: tracheostomy 02/06: MRI for consistently poor mental status 02/07: started to wake and follow commands this AM. 02/08: cont vent weaning attempts. 02/09: trach exchanged for XLT bivona air Plan: Respiratory: Acute hypoxic respiratory failure due to aspirations and acute ischemic stroke with poor secretion clearance - Lung protective ventilation with goal 6-8 cc/kg IBW - Maintain Drive pressure < 15, SaO2 > 90, HOB > 30 degrees, Plateau pressure < 30 cm H20 - Continue duonebs and hypertonic nebs - atropine drops for oral secretions -- Tracheostomy placed 02/04 -- will wean vent resume SBT with goal trach collar as tolerated. -- trial higher drive pressures -- rest on vent qhs -- wean ASV to 80% and cont SBT Aspiration PNA now with staph aureus on sputum - Completed 5 days of empiric ceftriaxone 01/27 - Sputum gram stain with MSSA -- ancef - stop date in place Cardiovascular: Permissive Hypertension - SBP goal 120-180 - amlodipine 5 mg - can escalate as needed CAD - S/p CABG - On aspirin, atorvastatin and clopidogrel Neuro: Acute Ischemic Stroke - 2/2 proximal basilar artery stenosis - s/p angioplasty, unable to stent, c/b dissection of right distal vertebral artery - Completed aggrastat - Continue aspirin, atorvastatin and clopidogrel - Continue modafinil for alertness Encephalopathy - fevers in the setting of above vs sepsis vs toxic from meds vs hypoactive ICU delirium - improved Delirium prophylaxis: - Encourage normal sleep-wake cycle: lights on during the day, frequent re- orientation, sleep hygiene, minimize sleep interruptions. - Avoid sedating medications like benzos and antipsychotics, as much as possible. - PT/OT with early mobility as appropriate - No clinical signs of seizure activity. ID: Sepsis with pulmonary source - improving - sputum cx with MSSA - cont ancef - Continue to monitor WBC and fever curve. Renal: BOLA - improving Hyponatremia, hyperphosphatemia, NS as above. - cont trending labs - Strict Is and Os GI/Diet: Malnutrition Diagnosis Severe Protein Calorie malnutrition in context of acute disease or injury was present on admission.Diagnosis is made in consultation with clinical nutrition who have implemented a care plan. - cont TFs - Continue supplements Endo: DM II - Continue SSI Q 6 - NPH 15 u q12hr Heme: DVT ppx - SQ heparin Prognosis: fair Family updates: family updated 02/09 Code Status: Full Code Disposition: Case management planning LTAC transfer. Critical Care Time: I personally spent 50 minutes providing Critical Care services, time was exclusive to this patient and does not include time spent teaching or in procedures. Chuy Siegel DO 02/11/24 8:22 AM Critical Care Medicine * Christi Colbert RCP - 02/11/2024 3:51 AM CDT Patient is mechanically ventilated mode ASV MV 100% PEEP 5 FIO2 21%. Patient will continue to be ventilated. Will continue to SBT and assess as able. Spontaneous Breathing Trial Times Ventilator Liberation Times Ventilator Liberation Time ON: 0443 Ventilator Liberation Time OFF: 0435 Initial Settings PSV settin CPAP Settings cm H2O (Initial): 5 Subsequent Settings PSV settin CPAP Settings cm H2O (Subsequent): 5 Results Comments Passed Ventilator Liberation?: No Cuff leak test completed?: Not performed Ventilator Liberation Comments: Pt had high RR notified MD and placed on ASV * Sejal Bautista RCP - 02/10/2024 4:42 PM CDT Mr. Rdz continues on mechanical ventilation with settings of Mode APV/CMV, VT520 , RR 15, PEEP 5 , FiO2 40%. Spontaneous Breathing Trial Times Ventilator Liberation Times Ventilator Liberation Time ON: 1555 Ventilator Liberation Time OFF: 0435 Initial Settings PSV settin CPAP Settings cm H2O (Initial): 5 Subsequent Settings PSV settin CPAP Settings cm H2O (Subsequent): 5 Results Comments Passed Ventilator Liberation?: No Cuff leak test completed?: Not performed Ventilator Liberation Comments: pt failed due to apnea * Janet Crenshaw, PT - 02/10/2024 2:17 PM CDT Physical Therapy ICU Treatment Chart reviewed for diagnosis and medical systems review. RN consented for PT. (January) Explained purpose of PT and patient consented to participate in therapy. RECOMMENDATIONS/PLAN: Continue acute PT and progress as tolerated. PT Discharge Recommendations: Patient would benefit from intensive 3-hour multidisciplinary therapy This recommendation is made due to ongoing intensive PT functional needs: motivated to participate in therapy;patient has the need for more than one skilled therapy service;functional mobility is significantly below baseline Recommended Transportation Method: Stretcher/Ambulance PPE worn by staff: gloves PPE worn by patient: gown - patient, clean AM-PAC Basic mobility score for this patient is Mobility Raw Score:: 8 Precautions: Trach, PEG, PIV, Central line, FMS, Beltran, fall, skin, safety, left soft wrist restraint, left eye Ptosis SUBJECTIVE:* Patient with delayed processing, but consistently using thumbs up or yes nod. Following one step commands left and right. Pain Assessment: Pain Location #1 Pain Rating Score #1: (No pain indicators durings session) OBJECTIVE: Cognition: Cognition: Follows one step commands Level of Consciousness-Adult: Alert Strength: R LE 2 L LE 2+/3- Sensation: B LE SILT Balance: Sitting - Static: Fair;Fair -;With Both Upper Extremity's Support Bed Mobility: Supine to Sit: Total Assistance;X 2 Sit to Supine: Total Assistance;X 2 Transfers: Sit to Stand: Activity Does Not Occur Activity Tolerance: Requires rest breaks Vital signs: Before mobility During mobility After mobility BP 139/94 164/107 HR (bpm) 93 91 RR (breaths/min) 21 26 SpO2 (%) 100 100 LPM O2 source Position Supine Seated EOB Ventilator Settings: Mode APV/CMV P-Support PEEP 5 %FiO2 40 ASSESSMENT: Patient following one step commands 75% or greater today. Patient able to assist with BUE and LE ROM (>on R) x 10 reps. Requires total assist x2 to transfer to EOB. Practiced wt shiftleft, right on UE's Able to self correct to midline3/4 times. Performs assisted knee extension bilat approx 5-7 reps. Seated EOB approx 6 mins with fluctuation SBA to mod assist to assure balance. Patient requiring increased assistance to assure balance after 6 mins. Safely assisted supine with total assist x2. Total assist rolling left, right for placement of fresh pads. Positioned for pressure relief end of session left semi side lying,heel protectors in place. A co-treat/co-eval was performed with Physical/Occupational Therapy to optimize patient performanceand outcomes as patient has limited participation, activity tolerance, and requires assist of a second skilled clinician due to complex mobility needs. The co-treatment benefits the patient by providing quality treatments through interdisciplinary methods. PT provided bed mobility, sitting balance activity tofacilitate improved posture through handling techniques. All lines, monitors, IV's, equipment in place and intact pre and post visit. RN January notified of patient's performance/location end of session. Pt educated in PT plan of care, fall precautions, and benefits of OOB activity. Refer to Plan of Care for PT goals. See Filed Flowsheet under Summary for further details. RECOMMENDATIONS/PLAN: Progress as tolerated. If this is the last Physical Therapy visit, this serves as the discharge summary. ANDREY Gonzales [phone] * Denise Layne, OT - 02/10/2024 2:11 PM CDT Occupational Therapy Treatment Summary: Chart reviewed for diagnosis and medical systems review. Nursing consented for OT. Explained purpose of OT and patient consented to participate in therapy. RECOMMENDATIONS/PLAN: Ongoing OT to increase independence and safety with daily tasks. OT Discharge Recommendations: Patient would benefit from intensive 3-hour multidisciplinary therapy This recommendation is made due to ongoing intensive OT functional needs: ability to actively participate in intensive therapy 3 hours/day, 5 days a week;patient has the need for more than one skilled therapy service;motivated to participate in therapy;not at baseline due to impaired ability to complete ADL's;functional mobility is significantly below baseline;likely to return to the community atdischarge with support system;patient and/or caregiver require specialized training;patient demonstrates a significant functional decline and would benefit from skilled therapy intervention to restore function;patient has the ability to progress and demonstrate measurable gains as a result of skilled therapy Recommended Transportation Method: Stretcher/Ambulance PPE worn by staff: gloves AM-PAC Daily Activity score for this patient is Daily Activity Raw Score:: 7 Precautions: trach, PEG, PIV, FMS, Beltran, fall, skin, safety SUBJECTIVE: Pt able to consistently give thumbs up when asked. He presents with delayed processing but followed commands for therapy. Psychosocial: Patient Behaviors: Calm;Cooperative Family Behaviors: Not Present Patient's Goal for the Day: Get stronger Pain Assessment: Pain Location #1 Pain Rating Score #1: (no indication of pain during session) OBJECTIVE: Cognition: Orientation Level: Oriented to Person;Disoriented to Place;Disoriented to Situation;Disoriented to Time Cognition: Follows one step commands;Processing-delayed;Judgement-appropriate ADLs/Functional Mobility: Bed Mobility: Supine to Sit: Total Assistance;X 2 Sit to Supine: Total Assistance;X 2 Transfers: Sit to Stand: Activity Does Not Occur Balance: Sitting - Static: Fair -;Poor + (SBA at times - Mod A at times as he fatigued.) Sitting - Dynamic: Poor Basic ADL: observation/clinical judgement Feeding: Total Assistance (PEG) Oral Facial Hygiene: Maximal Assistance (pt washed face/hands with assist) Upper Body Dressing: Maximal Assistance;Total Assistance Lower Body Dressing: Total Assistance Toileting: Total Assistance Activity tolerance/Oxygen Therapy: Activity Tolerance: Requires rest breaks $ O2 DEVICE: Ventilator $ Modified [place] Score Current Modified Merv[place] Score: 5 ASSESSMENT: Pt is agreeable to therapy. In bed, he participated in AAROM B UEs and B LEs in preparation for seated tasks. He worked on visually scanning therapy on right and left side of bed. ..A co-treat was performed with Physical Therapy to optimize patient performance and outcomes as patient requires assist of a second skilled clinician due to complex mobility needs. The co-treatment benefitsthe patient by providing quality treatments through interdisciplinary methods. He was assisted to edge of bed sitting - initially needing Mod A for seated balance - but able to progress to 5 minutes SBA seated balance - working on trunk control and self righting to midline. As he fatigued, he needed more posterior support of Mod A for sitting. When asked if he would like to return to bed, he shakes his head no. He is motivated to increase strength and independence. Ultimately, he was assisted back to bed. He was rolled side to side to replace pads and positioned on his left side to offload buttocks. Please refer to the Filed Flowsheet for further details. Call light and phone in reach with left soft wrist restraint reapplied. All lines, monitors, IV's, equipment in place and intact pre and post visit. RN, January, notified of patient's performance/location end of session Educated patient in role/goal of OT. If this is the last OT visit, this note serves as the discharge summary. FUENTES TomasR/Boris Ascom: [phone] * Sejal Bautista RCP - 02/10/2024 11:26 AM CDT Patients trach was change to a 8 XLT hyperflex fixed flange (air). * Sherie Beltre MD - 02/10/2024 9:54 AM CDT INTERVENTIONAL STROKE NEUROLOGY PROGRESS NOTE Hospital Day: 18 A 63 year old male was admitted with PMH of DM, HTN, alcohol abuse who presented on 01/23/2024 10:27AM with chief complaint of unresponsiveness. He was found down at his home by the recharger person he had scheduled to visit his home today. His last known well was not clear. I spoke with his sister who said they had not seen or spoken to him in the last 24 hrs. He was able to follow some command upon arrival to the hospital but had a hard time moving his lower limbs. Suspicion of posterior circulation stroke was entertained. MRI brain stat was quickly obtained showing multiple infarcts in the brainstem including the left midbrain and left thalamus and right periventricular region. 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 Decision to take to IVRfor exploration and potential management. He was intubated in the ER for airway protection. CTH stable. Family reports L pupil has been larger for 2+months. Extubated 01/24. Reported seizure activity on 01/26, started on Keppra. No further seizure since. PEG placed for neurogenic dysphagia, TF restarted. intubated and sedated on 02/01 due to respiratory failure. 02/10/2024: Patient seen laying in bed, he is doing much better. Mouthing words. Still on the vent. Need to wean to airvo. MEDICATIONS FOR CURRENT ENCOUNTER: SCHEDULED MEDICATIONS: 0.9% NaCl injection 3 mL, Intracatheter, q8h albuterol-ipratropium (Duo-Neb) nebulizer solution 3 mL, Inhalation, q6h amLODIPine (Norvasc) tablet 5 mg, Enteral Tube, QDAY aspirin chew tablet 81 mg, Enteral Tube, QDAY atorvastatin (Lipitor) tablet 40 mg, Enteral Tube, AT BEDTIME ceFAZolin (Ancef) 2 g in 0.9% NaCl IV 50 mL IVPB, Intravenous, q8h chlorhexidine (Peridex) 0.12 % oral solution 15 mL, Mouth/Throat, BID clopidogrel (plaVIX) tablet 75 mg, Enteral Tube, QDAY famotidine (Pepcid) tablet 20 mg, Enteral Tube, BID folic acid (Folvite) tablet 1 mg, Enteral Tube, QDAY glycopyrrolate (Robinul) injection 0.1 mg, Intravenous, Once heparin injection 5,000 Units, Subcutaneous, BID insulin aspart (NovoLOG) pen 0-18 Units, Subcutaneous, q6h insulin NPH pen 15 Units, Subcutaneous, q12h magnesium sulfate 2 g in 50 mL bolus, Intravenous, Once modafinil (Provigil) tablet 200 mg, Enteral Tube, QAM multiple vitamins with minerals tablet 1 tablet, Enteral Tube, QDAY potassium chloride (Klor-Con) packet 40 mEq, Enteral Tube, q4h sodium chloride 3 % nebulizer solution 3 mL, Inhalation, q6h ??? thiamine (Vitamin B-1) tablet 100 mg, Enteral Tube, QDAY ??? CONTINUOUS MEDICATIONS: PRN MEDICATIONS: Or Or 0.9% NaCl injection 1-10 mL, Intracatheter, PRN acetaminophen (Tylenol) tablet 650 mg, Enteral Tube, q4h PRN atropine 1 % ophthalmic solution 2 drop, Sublingual, q6h PRN dextrose 10 % IV bolus, Intravenous, PRN dextrose 10 % IV bolus, Intravenous, PRN glucagon (Glucagen) injection 1 mg, Subcutaneous, PRN hydrALAZINE (Apresoline) injection 10 mg, Intravenous, q1h PRN ondansetron (Zofran) injection 4 mg, Intravenous, q4h PRN ??? prochlorperazine (Compazine) injection 10 mg, Intravenous, q4h PRN Peripheral IV Anterior;Right Forearm (Active) Placement Date/Time: 02/10/24 0700 Size (Gauge): 18 G Orientation: Anterior;Right Location: ForearmSite Prep: Chlorhexidine Technique: Ultrasound Guidance Insertion attempts (FOR ED ONLY): 1 Number of days: 0 Fecal Drainage Device With balloon (Active) Placement Date/Time: 02/06/24 1316 Person who placed: ZACHARY Christine Fecal Incontinence Device: With balloon Number of days: 3 Enteral - Percutaneous Endoscopic Gastrostomy Abdomen;Midline;Upper (Active) Placement Date/Time: 01/30/24 1514 Placed by: Dr. Ruffin Type: Percutaneous Endoscopic Gastrostomy Tube Location: Abdomen;Midline;Upper Size (FR): 20 Lot Number: [id number] Procedure Tolerance: Sedated Number of days: 10 Trach Bivona (Active) Placement Date/Time: 02/05/24 0800 Person who placed: robbin Brand: Bivona Airway Device: Cuffed Cuff Type: Water (Bivona) Trach size: 8 MM Number of days: 5 Central Line (Non-Tunneled) Internal Jugular Triple (Active) Placement Date/Time: 02/02/24 1645 Placed by: Dr. Jacome Central Line Checklist utilized: Yes Orientation: Left Location: Internal Jugular Lumens: Triple Number of days: 7 Indwelling Transurethral Urinary Catheter (Active) Placement Date/Time: 02/06/24 2330 Placed by: Melony Peterson Size (FR): 16 Catheter Balloon Size: 10 mL Closed System Maintained This Shift: Yes, Seal Intact Number of attempts: 1 Procedure Tolerance: Well Number of days: 3 BP 128/77 Pulse 72 Temp 98.7 ??F (37.1 ??C) Resp 14 Ht 1.93 m (6' 4 ) Wt 123.8 kg (273 lb) SpO2 97% Wt Readings from Last 3 Encounters: 02/10/24 123.8 kg (273 lb) 09/17/23 (!) 148.6 kg (327 lb 9.6 oz) 05/07/23 (!) 145.2 kg (320 lb) Multisystem Examination: Neck: Limited due to Trach Respiratory: No respiratory distress. Cardiovascular: Normal heart rate, Normal rhythm. GI: Soft, No tenderness Integument: Warm, Dry Pupillometry Initial: NPI Left: 0 (01/23/241699) NPI Right: 4.1 (01/23/241699) Pupil Size Left (MM): 4.9 (01/23/241699) Pupil Size Right (MM): 2.38 (01/23/241699) Current: NPI Left: 0.9 (02/02/24399) NPI Right: 4.5 (02/02/24399) Pupil Size Left (MM): 4.97 (02/02/24399) Pupil Size Right (MM): 2.87 (02/02/24399) Neurological Examination: The patient is trached, awake, Speech is mouths words. L Pupils as above, not responding to threat.Following commands and moves all limbs, more vigorous on the R side. Motor/Sensory: No involuntary movements were observed. Limited due to recent sedation. Coordination: Unable to perform finger to nose. Gait: Not tested due to patient condition. Labs Recent Labs Component Name 02/04/24 0328 01/24/24 0443 07/23/20 0649 01/20/19 1134 CHOL - 229* 254* 258* TRIG 190* 179* 179* 63 HDL - 32* 48 63 LDLCALC - 161* 173* 179* Recent Labs Component Name 02/10/24 0324 02/09/24 0441 02/08/24 1153 02/08/24 0526 01/31/24 1116 01/30/24 0429 01/29/24 0259 SODIUM 143 142 139 141 - 139 140 POTASSIUM 3.6 3.8 3.9 3.9 - 4.1 4.1 CHLORIDE 112* 110* 107 104 - 101 100 CO2 BUN 29* 33* 37* 38* - 17 15 CREATININE 0.83 0.89 0.87 0.95 - 0.80 0.74 GLUCOSE 126* 112* 199* 178* - 146* 135* CALCIUM 9.8 9.4 9.6 9.7 - 9.6 9.3 ALBUMIN - - - 2.1* - 2.7* 2.7* ALKPHOS - - - 193* - 81 90 ALT - - - 73* - 9 10 AST - - - 62* - 14 14 TBIL - - - 0.3 - 0.2 0.2 TPROT - - - 8.0 - 7.8 8.2 EGFR >90 >90 >90 89* - >90 >90 - = values in this interval not displayed. Evaluation: CT head 01/22: 1. No acute intracranial hemorrhage. 2. Involutional changes with chronic lacunar infarctions and ischemic microangiopathy. 3. Age indeterminate infarction left thalamus and less likely a sequela of trans-synaptic degeneration. MRI brain if there is concern for acute ischemia. CT head 01/23: No acute intracranial hemorrhage. Stable chronic findings. CT angio: Short segment severe, string-like stenosis of the lower basilar artery just above the vertebral confluence. Cerebral Angiogram Impression 01/23/2024: A severe stenosis in the proximal basilar artery, s/p successful balloon angioplasty. Residual stenosis about 50% in lateral view MRI Brain: 1. New 11 x 6 mm acute infarction within the right periatrial white matter/major forceps. 2. There is expected evolution of previously demonstrated acute infarctions within the left thalamus and extending into the midbrain as well as the right frontal merchant radiata as compared with 01/23/2024. 3. Persistent global involutional changes, chronic right basal ganglia lacunar infarction and underlying ischemic microangiopathy. Echo: ??? Left??Ventricle: Left ventricle size is normal. Mildly to moderately increased wall thickness. Normal systolic function. EF 50-55%. Normal wall motion. Diastolic function is indeterminate. ??? Right??Ventricle: Right ventricle is not well visualized. ??? Aortic??Valve: Mild regurgitation. EKG: Results for orders placed or performed during the hospital encounter of 01/23/24 EKG 12-LEAD Result Value Ref Range Ventricular Rate 96 BPM Atrial Rate 96 BPM P-R Interval 146 ms QRS Duration ms 78 ms Q-T Interval ms 360 ms QTC Calculation (Bezet) 454 ms Calculated P [place] 79 degrees Calculated R [place] 76 degrees Calculated T [place] -77 degrees Interpretation EKG Normal sinus rhythm ST & T wave abnormality, consider inferolateral ischemia Abnormal ECG When compared with ECG of 12-OCT-2022 16:28, Premature ventricular complexes are no longer Present Non-specific change in ST segment in Anterior leads Inverted T waves have replaced nonspecific T wave abnormality in Inferior leads T wave amplitude has increased in Anterior leads Confirmed by JUSTICE PURVIS MD ([id number]) on 01/23/2024 2:35:44 PM Tele: Cardiac Rhythm: Sinus Rhythm (02/10/24 0600) LDL: Recent Labs Component Name 01/24/24 0443 07/23/20 0649 01/20/19 1134 LDLCALC 161* 173* 179* HgBA1C: Recent Labs Component Name 01/23/24 1039 09/17/23 1330 10/18/22 1045 HGBA1C 6.1* 6.5 5.9 This patient will benefit from a SGLT-2 or GLP-1, this requires close follow up with PCP or endocrine and lab monitoring. Due to this reason deferred treatment until outpatient follow up. Initial documented NIHSS Score: NIH Total: 13 (01/23/24 1048) Last Documented NIHSS Score: NIH Total: 23 (02/09/24 0800) Depression Screen Score = Does not meet criteria for screening: Intubation PHQ-2 PHQ-9 Therapy Recommendations: Discharge Discharge Equipment Recommendations: To Be Determined (01/29/24 1935) OT Discharge Recommendations: Patient would benefit from intensive 3-hour multidisciplinary therapy(02/01/24 1402) This recommendation is made due to ongoing intensive OT functional needs: ability to actively participate in intensive therapy 3 hours/day, 5 days a week;patient has the need for more than one skilled therapy service;motivated to participate in therapy;not at baseline due to impaired ability to complete ADL's;functional mobility is significantly below baseline;likely to return to the community atdischarge with support system;patient and/or caregiver require specialized training;patient demonstrates a significant functional decline and would benefit from skilled therapy intervention to restore function;patient has the ability to progress and demonstrate measurable gains as a result of skilled therapy (02/01/24 1402) PT Discharge Recommendations: Patient would benefit from intensive 3-hour multidisciplinary therapy(02/01/24 1405) This recommendation is made due to ongoing intensive PT functional needs: patient has the ability to progress and demonstrate measurable gains as a result of skilled therapy (02/01/24 1405) Recommended Transportation Method: Stretcher/Ambulance (02/01/24 1405) Modified [place] Score: Preadmission Modified [place] Score: 0 (01/26/24 0936) Current Modified Mervin Score: 5 (02/01/24 1405) Procedures: Basilar artery??angioplasty 01/23/2024 PEG 01/30/24 Trach 02/05/2024 IMPRESSION - Acute ischemic stroke: Posterior circulation syndrome - 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 - Statin: Lipitor - VTE prevention with SCDs and Heparin - Allow permissive HTN - Maintain euglycemia, SSI - Off keppra now. Monitor for seizure activity. - PEG for nutrition and medication - PT/OT and speech therapy ongoing. - ICU for medical management. - LTACH placement pending if unable to wean vent - Wean vent as tolerated. 02/10/2024 Sherie Beltre MD Interventional Vascular Neurology [facility] [place] * Chuy Siegel, - 02/10/2024 8:41 AM CDT ICU Progress Note Subjective: Events: Waking up more. Cont secretions. Symptoms: Patient denies pain and is now able to communicate symptoms with yes/no questions, but does not appear to be in any distress. Subjective: Filed Vitals: 02/10/24 0600 02/10/24 0700 02/10/24 0711 02/10/24 0715 BP: 156/93 117/77 Pulse: 88 78 82 82 Resp: 20 13 10 Temp: TempSrc: SpO2: 98% (!) 86% 97% 96% Weight: Height: Artificial airway None Physical Exam: GENERAL APPEARANCE: Acutely ill appearing EYE: pupils equal and reactive, extraocular eye movements intact HEENT: NCAT, MMM copious secretions NECK: Supple Trach site CDI RESP: coarse to auscultation bilaterally. Referred vent sounds. CARDIO: Regular rate, rhythm without murmur. GI/AB: soft, nttp, normoactive bowel sounds SKIN: Normal to inspection. Warm, dry, supple, with no changes in moles or sores that will not heal. NEUROMUSC: withdraws to painful stimuli, moving left side purposefully, waking to verbal stimuli, answering yes/no questions appropriately. Moving right arm more spontaneously. Output by Drain (mL) 02/08/24 07 - 02/08/24 1900 02/08/24 190 - 02/09/24 0702/09/24 0701 - 02/09/24 1900 02/09/24 190 - 02/10/24 0702/10/24 07 - 02/10/24 0841 Requested LDAs do not have output data documented. Peripheral IV Anterior;Right Forearm (Active) Placement Date/Time: 02/10/24 07 Size (Gauge): 18 G Orientation: Anterior;Right Location: ForearmSite Prep: Chlorhexidine Technique: Ultrasound Guidance Insertion attempts (FOR ED ONLY): 1 Number of days: 0 Fecal Drainage Device With balloon (Active) Placement Date/Time: 02/06/24 1316 Person who placed: ZACHARY Christine Fecal Incontinence Device: With balloon Number of days: 3 Enteral - Percutaneous Endoscopic Gastrostomy Abdomen;Midline;Upper (Active) Placement Date/Time: 01/30/24 1514 Placed by: Dr. Ruffin Type: Percutaneous Endoscopic Gastrostomy Tube Location: Abdomen;Midline;Upper Size (FR): 20 Lot Number: [id number] Procedure Tolerance: Sedated Number of days: 10 Trach Bivona (Active) Placement Date/Time: 02/05/24 0800 Person who placed: robbin Brand: Bivona Airway Device: Cuffed Cuff Type: Water (Bivona) Trach size: 8 MM Number of days: 5 Central Line (Non-Tunneled) Internal Jugular Triple (Active) Placement Date/Time: 02/02/24 1645 Placed by: Dr. Jacome Central Line Checklist utilized: Yes Orientation: Left Location: Internal Jugular Lumens: Triple Number of days: 7 Indwelling Transurethral Urinary Catheter (Active) Placement Date/Time: 02/06/24 2330 Placed by: Melony Peterson Size (FR): 16 Catheter Balloon Size: 10 mL Closed System Maintained This Shift: Yes, Seal Intact Number of attempts: 1 Procedure Tolerance: Well Number of days: 3 Laboratory Results Reviewed Radiology Reviewed Assessment: Hospital Day: Raza Vazquez is a 63 yom with histdory of CAD s/p CABG, obesity, HTN, HLD, DM II who presented to the ICU after an acute ischemic stroke. Timeline 01/22: Presented to ED after being found down. MRI with brainstem infarcts. 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 Transferred to ICU. 01/23: Sedation weaned. Following simple commands 01/24: Extubated 01/26: Worsening encephalopathy. cEEG initiated. Started on keppra. 01/27: EEG read normal 01/28: Transferred from ICU level of care to stroke service 01/29: PEG placed by GI 01/30: OOB to chair 02/01: Worsening mental status, not clearing secretions. ICU re-consulted. Intubated. 02/02: cont on vent support 02/03: consent obtained for trach. Cont TF and sedation. 02/04: tracheostomy 02/06: MRI for consistently poor mental status 02/07: started to wake and follow commands this AM. 02/08: cont vent weaning attempts. Plan: Respiratory: Acute hypoxic respiratory failure due to aspirations and acute ischemic stroke with poor secretion clearance - Lung protective ventilation with goal 6-8 cc/kg IBW - Maintain Drive pressure < 15, SaO2 > 90, HOB > 30 degrees, Plateau pressure < 30 cm H20 - Continue duonebs and hypertonic nebs - atropine drops for oral secretions -- Tracheostomy placed 02/04 -- will wean vent resume SBT with goal trach collar as tolerated. -- trial higher drive pressures -- rest on vent qhs -- plan to exchange trach for bivona hyperflex. Aspiration PNA now with staph aureus on sputum - Completed 5 days of empiric ceftriaxone 01/27 - Sputum gram stain with MSSA -patient's mental status improved -- ancef - stop date in place Cardiovascular: Permissive Hypertension - SBP goal 120-180 - amlodipine 5 mg - can escalate as needed CAD - S/p CABG - On aspirin, atorvastatin and clopidogrel Neuro: Acute Ischemic Stroke - 2/2 proximal basilar artery stenosis - s/p angioplasty, unable to stent, c/b dissection of right distal vertebral artery - Repeat MRI done - Completed aggrastat - Continue aspirin, atorvastatin and clopidogrel - Continue modafinil for alertness Encephalopathy - fevers in the setting of above vs sepsis vs toxic from meds vs hypoactive ICU delirium - improved Delirium prophylaxis: - Encourage normal sleep-wake cycle: lights on during the day, frequent re- orientation, sleep hygiene, minimize sleep interruptions. - Avoid sedating medications like benzos and antipsychotics, as much as possible. - PT/OT with early mobility as appropriate - No clinical signs of seizure activity. ID: Sepsis with pulmonary source - improving - sputum cx with MSSA - cont ancef - Continue to monitor WBC and fever curve. Renal: BOLA - improving Hyponatremia, hyperphosphatemia, NS as above. - cont trending labs - Strict Is and Os GI/Diet: Malnutrition Diagnosis Severe Protein Calorie malnutrition in context of acute disease or injury was present on admission.Diagnosis is made in consultation with clinical nutrition who have implemented a care plan. - cont TFs - Continue supplements Endo: DM II - Continue SSI Q 6 - NPH 15 u q12hr Heme: DVT ppx - SQ heparin Prognosis: fair Family updates: family updated 02/08 Code Status: Full Code Disposition: Case management planning LTAC transfer. Critical Care Time: I personally spent 50 minutes providing Critical Care services, time was exclusive to this patient and does not include time spent teaching or in procedures. Chuy Siegel DO 02/10/24 8:41 AM Critical Care Medicine * Christi Colbert [facility] - 02/10/2024 3:53 AM CDT Patient is mechanically ventilated mode ASV MV 100% PEEP 5 FIO2 21%. Patient will continue to be ventilated. Will continue to SBT and assess as able. Spontaneous Breathing Trial Times Ventilator Liberation Times Ventilator Liberation Time ON: 0355 Ventilator Liberation Time OFF: 0435 Initial Settings PSV settin CPAP Settings cm H2O (Initial): 5 Subsequent Settings PSV settin CPAP Settings cm H2O (Subsequent): 5 Results Comments Passed Ventilator Liberation?: No Cuff leak test completed?: Not performed Ventilator Liberation Comments: pt failed due to high RR and low volumes. aware, * Jodi Mayer RCP - 02/09/2024 5:56 PM CDT Spontaneous Breathing Trial Times Ventilator Liberation Times Ventilator Liberation Time ON: 1425 Ventilator Liberation Time OFF: 1430 Initial Settings PSV settin CPAP Settings cm H2O (Initial): 5 Subsequent Settings PSV settin CPAP Settings cm H2O (Subsequent): 5 Results Comments Passed Ventilator Liberation?: No Cuff leak test completed?: Not performed Ventilator Liberation Comments: Pt failed SBT due to high RR and low Vt. MD notified. Vent Settings are as follows: VENT MODE: ASV % MV: 100 % PEEP/CPAP: 5 cm H20 O2 % (FiO2): 21 % Will continue to monitor. * Sherie Beltre MD - 02/09/2024 11:52 AM CDT INTERVENTIONAL STROKE NEUROLOGY PROGRESS NOTE Hospital Day: 17 A 63 year old male was admitted with PMH of DM, HTN, alcohol abuse who presented on 01/23/2024 10:27AM with chief complaint of unresponsiveness. He was found down at his home by the recharger person he had scheduled to visit his home today. His last known well was not clear. I spoke with his sister who said they had not seen or spoken to him in the last 24 hrs. He was able to follow some command upon arrival to the hospital but had a hard time moving his lower limbs. Suspicion of posterior circulation stroke was entertained. MRI brain stat was quickly obtained showing multiple infarcts in the brainstem including the left midbrain and left thalamus and right periventricular region. 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 Decision to take to IVRfor exploration and potential management. He was intubated in the ER for airway protection. CTH stable. Family reports L pupil has been larger for 2+months. Extubated 01/24. Reported seizure activity on 01/26, started on Keppra. No further seizure since. PEG placed for neurogenic dysphagia, TF restarted. intubated and sedated on 02/01 due to respiratory failure. 02/09/2024: Patient seen laying in bed, he is doing much better. Waking up now and following commands on the R side. He is LTACH ready. MEDICATIONS FOR CURRENT ENCOUNTER: SCHEDULED MEDICATIONS: 0.9% NaCl injection 3 mL, Intracatheter, q8h albuterol-ipratropium (Duo-Neb) nebulizer solution 3 mL, Inhalation, q6h amLODIPine (Norvasc) tablet 5 mg, Enteral Tube, QDAY aspirin chew tablet 81 mg, Enteral Tube, QDAY atorvastatin (Lipitor) tablet 40 mg, Enteral Tube, AT BEDTIME ceFAZolin (Ancef) 2 g in 0.9% NaCl IV 50 mL IVPB, Intravenous, q8h chlorhexidine (Peridex) 0.12 % oral solution 15 mL, Mouth/Throat, BID clopidogrel (plaVIX) tablet 75 mg, Enteral Tube, QDAY famotidine (Pepcid) tablet 20 mg, Enteral Tube, BID folic acid (Folvite) tablet 1 mg, Enteral Tube, QDAY heparin injection 5,000 Units, Subcutaneous, BID insulin aspart (NovoLOG) pen 0-18 Units, Subcutaneous, q6h insulin NPH pen 15 Units, Subcutaneous, q12h modafinil (Provigil) tablet 200 mg, Enteral Tube, QAM multiple vitamins with minerals tablet 1 tablet, Enteral Tube, QDAY sodium chloride 3 % nebulizer solution 3 mL, Inhalation, q6h thiamine (Vitamin B-1) tablet 100 mg, Enteral Tube, QDAY [COMPLETED] magnesium sulfate 2 g in 50 mL bolus, Intravenous, Once ??? [COMPLETED] potassium chloride (Klor-Con) packet 40 mEq, Enteral Tube, Once ??? CONTINUOUS MEDICATIONS: PRN MEDICATIONS: Or Or 0.9% NaCl injection 1-10 mL, Intracatheter, PRN acetaminophen (Tylenol) tablet 650 mg, Enteral Tube, q4h PRN atropine 1 % ophthalmic solution 2 drop, Sublingual, q6h PRN dextrose 10 % IV bolus, Intravenous, PRN dextrose 10 % IV bolus, Intravenous, PRN glucagon (Glucagen) injection 1 mg, Subcutaneous, PRN hydrALAZINE (Apresoline) injection 10 mg, Intravenous, q1h PRN ondansetron (Zofran) injection 4 mg, Intravenous, q4h PRN ??? prochlorperazine (Compazine) injection 10 mg, Intravenous, q4h PRN Fecal Drainage Device With balloon (Active) Placement Date/Time: 02/06/24 1316 Person who placed: ZACHARY Christine Fecal Incontinence Device: With balloon Number of days: 2 Enteral - Percutaneous Endoscopic Gastrostomy Abdomen;Midline;Upper (Active) Placement Date/Time: 01/30/24 1514 Placed by: Dr. Ruffin Type: Percutaneous Endoscopic Gastrostomy Tube Location: Abdomen;Midline;Upper Size (FR): 20 Lot Number: [id number] Procedure Tolerance: Sedated Number of days: 9 Trach Bivona (Active) Placement Date/Time: 02/05/24 0800 Person who placed: robbin Brand: Bivona Airway Device: Cuffed Cuff Type: Water (Bivona) Trach size: 8 MM Number of days: 4 Central Line (Non-Tunneled) Internal Jugular Triple (Active) Placement Date/Time: 02/02/24 1645 Placed by: Dr. Jacome Central Line Checklist utilized: Yes Orientation: Left Location: Internal Jugular Lumens: Triple Number of days: 6 Indwelling Transurethral Urinary Catheter (Active) Placement Date/Time: 02/06/24 2330 Placed by: Melony Peterson Size (FR): 16 Catheter Balloon Size: 10 mL Closed System Maintained This Shift: Yes, Seal Intact Number of attempts: 1 Procedure Tolerance: Well Number of days: 2 BP 141/84 Pulse 93 Temp 98.3 ??F (36.8 ??C) (Axillary) Resp 15 Ht 1.93 m (6' 4 ) Wt 122.5kg (270 lb) SpO2 99% Wt Readings from Last 3 Encounters: 02/09/24 122.5 kg (270 lb) 09/17/23 (!) 148.6 kg (327 lb 9.6 oz) 05/07/23 (!) 145.2 kg (320 lb) Multisystem Examination: Neck: Limited due to Trach Respiratory: No respiratory distress. Cardiovascular: Normal heart rate, Normal rhythm. GI: Soft, No tenderness Integument: Warm, Dry Pupillometry Initial: NPI Left: 0 (01/23/24 1700) NPI Right: 4.1 (01/23/24 1700) Pupil Size Left (MM): 4.9 (01/23/241699) Pupil Size Right (MM): 2.38 (01/23/241699) Current: NPI Left: 0.9 (02/02/24399) NPI Right: 4.5 (02/02/24399) Pupil Size Left (MM): 4.97 (02/02/24399) Pupil Size Right (MM): 2.87 (02/02/24399) Neurological Examination: The patient is trached, off sedation, Drowsy, opens mostly the R eye to sound. Speech is mouths words. L Pupils as above, not responding to threat. Following simple commands and moves all limbs, morevigorous on the R side. Motor/Sensory: No involuntary movements were observed. Limited due to recent sedation. Coordination: Unable to perform finger to nose. Gait: Not tested due to patient condition. Labs Recent Labs Component Name 02/04/24 0328 01/24/24 0443 07/23/20 0649 01/20/19 1134 CHOL - 229* 254* 258* TRIG 190* 179* 179* 63 HDL - 32* 48 63 LDLCALC - 161* 173* 179* Recent Labs Component Name 02/09/24 0441 02/08/24 1153 02/08/24 0526 01/31/24 1116 01/30/24 0429 01/29/24 0259 SODIUM 142 139 141 - 139 140 POTASSIUM 3.8 3.9 3.9 - 4.1 4.1 CHLORIDE 110* 107 104 - 101 100 CO2 24 - 27 BUN 33* 37* 38* - 17 15 CREATININE 0.89 0.87 0.95 - 0.80 0.74 GLUCOSE 112* 199* 178* - 146* 135* CALCIUM 9.4 9.6 9.7 - 9.6 9.3 ALBUMIN - - 2.1* - 2.7* 2.7* ALKPHOS - - 193* - 81 90 ALT - - 73* - 9 10 AST - - 62* - 14 14 TBIL - - 0.3 - 0.2 0.2 TPROT - - 8.0 - 7.8 8.2 EGFR >90 >90 89* - >90 >90 - = values in this interval not displayed. Evaluation: CT head 01/22: 1. No acute intracranial hemorrhage. 2. Involutional changes with chronic lacunar infarctions and ischemic microangiopathy. 3. Age indeterminate infarction left thalamus and less likely a sequela of trans-synaptic degeneration. MRI brain if there is concern for acute ischemia. CT head 01/23: No acute intracranial hemorrhage. Stable chronic findings. CT angio: Short segment severe, string-like stenosis of the lower basilar artery just above the vertebral confluence. Cerebral Angiogram Impression 01/23/2024: A severe stenosis in the proximal basilar artery, s/p successful balloon angioplasty. Residual stenosis about 50% in lateral view MRI Brain: 1. New 11 x 6 mm acute infarction within the right periatrial white matter/major forceps. 2. There is expected evolution of previously demonstrated acute infarctions within the left thalamus and extending into the midbrain as well as the right frontal merchant radiata as compared with 01/23/2024. 3. Persistent global involutional changes, chronic right basal ganglia lacunar infarction and underlying ischemic microangiopathy. Echo: ??? Left??Ventricle: Left ventricle size is normal. Mildly to moderately increased wall thickness. Normal systolic function. EF 50-55%. Normal wall motion. Diastolic function is indeterminate. ??? Right??Ventricle: Right ventricle is not well visualized. ??? Aortic??Valve: Mild regurgitation. EKG: Results for orders placed or performed during the hospital encounter of 01/23/24 EKG 12-LEAD Result Value Ref Range Ventricular Rate 96 BPM Atrial Rate 96 BPM P-R Interval 146 ms QRS Duration ms 78 ms Q-T Interval ms 360 ms QTC Calculation (Bezet) 454 ms Calculated P [place] 79 degrees Calculated R [place] 76 degrees Calculated T [place] -77 degrees Interpretation EKG Normal sinus rhythm ST & T wave abnormality, consider inferolateral ischemia Abnormal ECG When compared with ECG of 26-JUL-2022 16:28, Premature ventricular complexes are no longer Present Non-specific change in ST segment in Anterior leads Inverted T waves have replaced nonspecific T wave abnormality in Inferior leads T wave amplitude has increased in Anterior leads Confirmed by JUSTICE PURVIS MD ([id number]) on 01/23/2024 2:35:44 PM Tele: Cardiac Rhythm: Sinus Rhythm (02/09/24 1000) LDL: Recent Labs Component Name 01/24/24 0443 07/23/20 0649 01/20/19 1134 LDLCALC 161* 173* 179* HgBA1C: Recent Labs Component Name 01/23/24 1039 09/17/23 1330 10/18/22 1045 HGBA1C 6.1* 6.5 5.9 This patient will benefit from a SGLT-2 or GLP-1, this requires close follow up with PCP or endocrine and lab monitoring. Due to this reason deferred treatment until outpatient follow up. Initial documented NIHSS Score: NIH Total: 13 (01/23/24 1048) Last Documented NIHSS Score: NIH Total: 23 (02/09/24 0800) Depression Screen Score = Does not meet criteria for screening: Intubation PHQ-2 PHQ-9 Therapy Recommendations: Discharge Discharge Equipment Recommendations: To Be Determined (01/29/24 1429) OT Discharge Recommendations: Patient would benefit from intensive 3-hour multidisciplinary therapy(02/01/24 140) This recommendation is made due to ongoing intensive OT functional needs: ability to actively participate in intensive therapy 3 hours/day, 5 days a week;patient has the need for more than one skilled therapy service;motivated to participate in therapy;not at baseline due to impaired ability to complete ADL's;functional mobility is significantly below baseline;likely to return to the community atdischarge with support system;patient and/or caregiver require specialized training;patient demonstrates a significant functional decline and would benefit from skilled therapy intervention to restore function;patient has the ability to progress and demonstrate measurable gains as a result of skilled therapy (02/01/24 140) PT Discharge Recommendations: Patient would benefit from intensive 3-hour multidisciplinary therapy(02/01/241404) This recommendation is made due to ongoing intensive PT functional needs: patient has the ability to progress and demonstrate measurable gains as a result of skilled therapy (02/01/24 140) Recommended Transportation Method: Stretcher/Ambulance (02/01/241404) Modified [place] Score: Preadmission Modified [place] Score: 0 (01/26/24 0936) Current Modified [place] Score: 5 (02/01/241404) Procedures: Basilar artery??angioplasty 01/23/2024 PEG 01/30/24 Trach 02/05/2024 IMPRESSION - Acute ischemic stroke: Posterior circulation syndrome - 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 - Statin: Lipitor - VTE prevention with SCDs and Heparin - Allow permissive HTN - Maintain euglycemia, SSI - Off keppra now. Monitor for seizure activity. - Nutrition: NPO, PEG for nutrition and medication - PT/OT and speech therapy ongoing. - MVI, w/ thiamine and folic acid. - ICU for medical management. - LTACH placement pending 02/09/2024 Sherie Beltre MD Interventional Vascular Neurology [facility] [place] * Brennan Minor, RN - 02/09/2024 10:00 AM CDT Problem: Fall Risk Goal: Patient will remain free of falls Outcome: Progressing Problem: Skin Integrity Goal: Skin integrity is maintained or improved Outcome: Progressing Problem: Neurological Deficit Goal: Neurological status is stable or improving Outcome: Progressing Problem: Potential for Urinary Catheter-Associated Infection Goal: Signs and Symptoms of urinary catheter-associated infection are avoided Outcome: Progressing * Chuy Siegel DO - 02/09/2024 7:46 AM CDT ICU Progress Note Subjective: Events: Waking up more. Cont secretions. Symptoms: Patient denies pain and is now able to communicate symptoms with yes/no questions, but does not appear to be in any distress. Subjective: Filed Vitals: 02/09/24 0530 02/09/24 0600 02/09/24 0701 02/09/24 0728 BP: 140/89 123/78 Pulse: 89 90 86 86 Resp: 15 17 15 15 Temp: TempSrc: SpO2: 94% 96% 93% 97% Weight: Height: Artificial airway None Physical Exam: GENERAL APPEARANCE: Acutely ill appearing EYE: pupils equal and reactive, extraocular eye movements intact HEENT: NCAT, MMM copious secretions NECK: Supple Trach site CDI RESP: coarse to auscultation bilaterally. Referred vent sounds. CARDIO: Regular rate, rhythm without murmur. GI/AB: soft, nttp, normoactive bowel sounds SKIN: Normal to inspection. Warm, dry, supple, with no changes in moles or sores that will not heal. NEUROMUSC: withdraws to painful stimuli, moving left side purposefully, waking to verbal stimuli, answering yes/no questions appropriately Output by Drain (mL) 02/07/24 0701 - 02/07/24 1900 02/07/24 190 - 02/08/24 0700 02/08/24 0701 - 02/08/24 1900 02/08/24 190 - 02/09/24 0700 02/09/24 0701 - 02/09/24 0746 Requested LDAs do not have output data documented. Fecal Drainage Device With balloon (Active) Placement Date/Time: 02/06/24 1316 Person who placed: ZACHARY Christine Fecal Incontinence Device: With balloon Number of days: 2 Enteral - Percutaneous Endoscopic Gastrostomy Abdomen;Midline;Upper (Active) Placement Date/Time: 01/30/24 1514 Placed by: Dr. Ruffin Type: Percutaneous Endoscopic Gastrostomy Tube Location: Abdomen;Midline;Upper Size (FR): 20 Lot Number: [id number] Procedure Tolerance: Sedated Number of days: 9 Trach Bivona (Active) Placement Date/Time: 02/05/24 0800 Person who placed: robbin Brand: Bivona Airway Device: Cuffed Cuff Type: Water (Bivona) Trach size: 8 MM Number of days: 3 Central Line (Non-Tunneled) Internal Jugular Triple (Active) Placement Date/Time: 02/02/24 1645 Placed by: Dr. Jacome Central Line Checklist utilized: Yes Orientation: Left Location: Internal Jugular Lumens: Triple Number of days: 6 Indwelling Transurethral Urinary Catheter (Active) Placement Date/Time: 02/06/24 2330 Placed by: Melony Peterson Size (FR): 16 Catheter Balloon Size: 10 mL Closed System Maintained This Shift: Yes, Seal Intact Number of attempts: 1 Procedure Tolerance: Well Number of days: 2 Laboratory Results Reviewed Radiology Reviewed Assessment: Hospital Day: 17 Raza Vazquez is a 63 yom with histdory of CAD s/p CABG, obesity, HTN, HLD, DM II who presented to the ICU after an acute ischemic stroke. Timeline 01/22: Presented to ED after being found down. MRI with brainstem infarcts. 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 Transferred to ICU. 01/23: Sedation weaned. Following simple commands 01/24: Extubated 01/26: Worsening encephalopathy. cEEG initiated. Started on keppra. 01/27: EEG read normal 01/28: Transferred from ICU level of care to stroke service 01/29: PEG placed by GI 01/30: OOB to chair 02/01: Worsening mental status, not clearing secretions. ICU re-consulted. Intubated. 02/02: cont on vent support 02/03: consent obtained for trach. Cont TF and sedation. 02/04: tracheostomy 02/06: MRI for consistently poor mental status 02/07: started to wake and follow commands this AM. Plan: Respiratory: Acute hypoxic respiratory failure due to aspirations and acute ischemic stroke with poor secretion clearance - Lung protective ventilation with goal 6-8 cc/kg IBW - Maintain Drive pressure < 15, SaO2 > 90, HOB > 30 degrees, Plateau pressure < 30 cm H20 - Continue duonebs and hypertonic nebs - atropine drops for oral secretions -- Tracheostomy placed 02/04 -- will wean vent resume SBT with goal trach collar as tolerated. -- trial higher drive pressures -- rest on vent qhs Aspiration PNA now with staph aureus on sputum - Completed 5 days of empiric ceftriaxone 01/27 - Sputum gram stain with MSSA -patient's mental status improved -- ancef - stop date in place Cardiovascular: Permissive Hypertension - SBP goal 120-180 - amlodipine 5 mg - cont to wean and resume BP meds as able CAD - S/p CABG - On aspirin, atorvastatin and clopidogrel Neuro: Acute Ischemic Stroke - 2/2 proximal basilar artery stenosis - s/p angioplasty, unable to stent, c/b dissection of right distal vertebral artery - Repeat MRI done - Completed aggrastat - Continue aspirin, atorvastatin and clopidogrel - Continue modafinil for alertness Encephalopathy - fevers in the setting of above vs sepsis vs toxic from meds vs hypoactive ICU delirium - improved Delirium prophylaxis: - Encourage normal sleep-wake cycle: lights on during the day, frequent re- orientation, sleep hygiene, minimize sleep interruptions. - Avoid sedating medications like benzos and antipsychotics, as much as possible. - PT/OT with early mobility as appropriate Seizures? - d/c levetiracetam - consider EEG if remains encephalopathic - d/w Dr. Beltre - No clinical signs of seizure activity. ID: Sepsis with pulmonary source - improving - sputum cx with MSSA - cont ancef - Continue to monitor WBC and fever curve. Renal: BOLA - improving Hyponatremia, hyperphosphatemia, NS as above. - cont trending labs - Strict Is and Os GI/Diet: Malnutrition Diagnosis Severe Protein Calorie malnutrition in context of acute disease or injury was present on admission.Diagnosis is made in consultation with clinical nutrition who have implemented a care plan. - cont TFs - Continue supplements Endo: DM II - Continue SSI Q 6 - NPH 15 u q12hr Heme: DVT ppx - SQ heparin Prognosis: Guarded Family updates: family updated 02/07 Code Status: Full Code Disposition: Case management planning LTAC transfer. Critical Care Time: I personally spent 50 minutes providing Critical Care services, time was exclusive to this patient and does not include time spent teaching or in procedures. Chuy Siegel DO 02/09/24 7:46 AM Critical Care Medicine * Lily Osorio RCP - 02/09/2024 12:30 AM CDT Patient continues on mechanical ventilation with settings of Mode ASV, MV 100%, PEEP +5, FiO2 21%. Will continue to monitor and wean as able. Spontaneous Breathing Trial Times Ventilator Liberation Times Ventilator Liberation Time ON: 0358 Ventilator Liberation Time OFF: 0430 Initial Settings PSV settin CPAP Settings cm H2O (Initial): 5 Subsequent Settings PSV settin CPAP Settings cm H2O (Subsequent): 5 Results Comments Passed Ventilator Liberation?: No Cuff leak test completed?: Not performed Ventilator Liberation Comments: (Patient failed SBT 02/16 and 05/19 due to increased RR 35-45 and low tidal volume 200-260. Patient was placed back on ASV. MD was informed.) ?? * Emelia Bui RCP - 02/08/2024 4:51 PM CDT Mr Vazquez continues on mechanical ventilation with settings of Mode ASV, MV 100%, PEEP 5, FiO2 21%. Will continue to monitor and wean as able. Spontaneous Breathing Trial Times Ventilator Liberation Times Ventilator Liberation Time ON: 1148 Ventilator Liberation Time OFF: 1227 Initial Settings PSV settin CPAP Settings cm H2O (Initial): 5 Subsequent Settings PSV settin CPAP Settings cm H2O (Subsequent): 5 Results Comments Passed Ventilator Liberation?: No Cuff leak test completed?: Not performed Ventilator Liberation Comments: exercise only * Annamarie Bonilla RN - 02/08/2024 11:30 AM CDT Care Coordination Progress Note CM met with Dr Jacome and discussed POC, ICU LOS and DC plans: HOLD on LTAC, pending MRI brain PC from Diane Mckee (Sister) updated her on the status, waiting for MRI. Anticipated level of care at discharge: Intermediate Acute Care (LTAC) Anticipated level of care provider: [facility] Anticipated Discharge Date: 02/12/24 Transportation at Discharge: other (TBD) Portions of this note have been copied from the medical record, but edited appropriately to accurately reflect the patient's current clinical state. Annamarie Bonilla RN Case Management - ICU [address] [facility] Ascom: [phone] O: [phone] * Sherie Beltre MD - 02/08/2024 9:29 AM CDT INTERVENTIONAL STROKE NEUROLOGY PROGRESS NOTE Hospital Day: 16 A 63 year old male was admitted with PMH of DM, HTN, alcohol abuse who presented on 01/23/2024 10:27AM with chief complaint of unresponsiveness. He was found down at his home by the recharger person he had scheduled to visit his home today. His last known well was not clear. I spoke with his sister who said they had not seen or spoken to him in the last 24 hrs. He was able to follow some command upon arrival to the hospital but had a hard time moving his lower limbs. Suspicion of posterior circulation stroke was entertained. MRI brain stat was quickly obtained showing multiple infarcts in the brainstem including the left midbrain and left thalamus and right periventricular region. 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 Decision to take to IVRfor exploration and potential management. He was intubated in the ER for airway protection. CTH stable. Family reports L pupil has been larger for 2+months. Extubated 01/24. Reported seizure activity on 01/26, started on Keppra. No further seizure since. PEG placed for neurogenic dysphagia, TF restarted. intubated and sedated on 02/01 due to respiratory failure. 02/08/2024: Patient seen laying in bed, trach in place. He remains about the same as yesterday. He is following commands intermittently on the L side. Since extubation, mentation has remained repressed. MRI reviewed. MEDICATIONS FOR CURRENT ENCOUNTER: SCHEDULED MEDICATIONS: 0.9% NaCl injection 3 mL, Intracatheter, q8h albuterol-ipratropium (Duo-Neb) nebulizer solution 3 mL, Inhalation, q6h artificial tears ophthalmic ointment, Each Eye, q8h aspirin chew tablet 81 mg, Enteral Tube, QDAY atorvastatin (Lipitor) tablet 40 mg, Enteral Tube, AT BEDTIME cefepime (Maxipime) 2,000 mg in 0.9% NaCl IV 50 mL IVPB, Intravenous, q8h chlorhexidine (Peridex) 0.12 % oral solution 15 mL, Mouth/Throat, BID clopidogrel (plaVIX) tablet 75 mg, Enteral Tube, QDAY famotidine (Pepcid) tablet 20 mg, Enteral Tube, BID folic acid (Folvite) tablet 1 mg, Enteral Tube, QDAY heparin injection 5,000 Units, Subcutaneous, BID insulin aspart (NovoLOG) pen 0-18 Units, Subcutaneous, q6h insulin NPH pen 15 Units, Subcutaneous, q12h levETIRAcetam (Keppra) tablet 250 mg, Enteral Tube, BID metroNIDAZOLE (Flagyl) tablet 500 mg, Enteral Tube, q8h modafinil (Provigil) tablet 200 mg, Enteral Tube, QAM multiple vitamins with minerals tablet 1 tablet, Enteral Tube, QDAY senna-docusate (Senokot-S) tablet 2 tablet, Enteral Tube, BID sodium chloride 3 % nebulizer solution 3 mL, Inhalation, q6h thiamine (Vitamin B-1) tablet 100 mg, Enteral Tube, QDAY ??? [COMPLETED] alteplase (Cathflo Activase) injection 2 mg, Intravenous, Once CONTINUOUS MEDICATIONS: ??? 0.9% NaCl infusion, Intravenous, Continuous PRN MEDICATIONS: Or Or 0.9% NaCl injection 1-10 mL, Intracatheter, PRN acetaminophen (Tylenol) tablet 650 mg, Enteral Tube, q4h PRN atropine 1 % ophthalmic solution 2 drop, Sublingual, q6h PRN dextrose 10 % IV bolus, Intravenous, PRN dextrose 10 % IV bolus, Intravenous, PRN glucagon (Glucagen) injection 1 mg, Subcutaneous, PRN hydrALAZINE (Apresoline) injection 10 mg, Intravenous, q1h PRN ondansetron (Zofran) injection 4 mg, Intravenous, q4h PRN ??? prochlorperazine (Compazine) injection 10 mg, Intravenous, q4h PRN Peripheral IV Distal;Left;Posterior Forearm (Active) Placement Date/Time: 02/02/24 1132 Size (Gauge): 20 G Orientation: Distal;Left;Posterior Location: Forearm Insertion attempts (FOR ED ONLY): 1 Number of days: 5 Fecal Drainage Device With balloon (Active) Placement Date/Time: 02/06/24 1316 Person who placed: ZACHARY Christine Fecal Incontinence Device: With balloon Number of days: 1 Enteral - Percutaneous Endoscopic Gastrostomy Abdomen;Midline;Upper (Active) Placement Date/Time: 01/30/24 1514 Placed by: Dr. Ruffin Type: Percutaneous Endoscopic Gastrostomy Tube Location: Abdomen;Midline;Upper Size (FR): 20 Lot Number: [id number] Procedure Tolerance: Sedated Number of days: 8 Trach Bivona (Active) Placement Date/Time: 02/05/24 0800 Person who placed: robbin Brand: Bivona Airway Device: Cuffed Cuff Type: Water (Bivona) Trach size: 8 MM Number of days: 3 Central Line (Non-Tunneled) Internal Jugular Triple (Active) Placement Date/Time: 02/02/24 1645 Placed by: Dr. Jacome Central Line Checklist utilized: Yes Orientation: Left Location: Internal Jugular Lumens: Triple Number of days: 5 Indwelling Transurethral Urinary Catheter (Active) Placement Date/Time: 02/06/24 2330 Placed by: Melony Peterson Size (FR): 16 Catheter Balloon Size: 10 mL Closed System Maintained This Shift: Yes, Seal Intact Number of attempts: 1 Procedure Tolerance: Well Number of days: 1 BP 136/90 Pulse 83 Temp 99.1 ??F (37.3 ??C) (Axillary) Resp 16 Ht 1.93 m (6' 4 ) Wt 123 kg (271 lb 2.7 oz) SpO2 95% Wt Readings from Last 3 Encounters: 02/08/24 123 kg (271 lb 2.7 oz) 09/17/23 (!) 148.6 kg (327 lb 9.6 oz) 05/07/23 (!) 145.2 kg (320 lb) Multisystem Examination: Neck: Limited due to Trach Respiratory: No respiratory distress. Cardiovascular: Normal heart rate, Normal rhythm. GI: Soft, No tenderness Integument: Warm, Dry Pupillometry Initial: NPI Left: 0 (01/23/24 1700) NPI Right: 4.1 (01/23/24 1700) Pupil Size Left (MM): 4.9 (01/23/24 1700) Pupil Size Right (MM): 2.38 (01/23/24 1700) Current: NPI Left: 0.9 (02/02/24 0400) NPI Right: 4.5 (02/02/24 0400) Pupil Size Left (MM): 4.97 (02/02/24 0400) Pupil Size Right (MM): 2.87 (02/02/24 0400) Neurological Examination: The patient is trached, off sedation, Drowsy, opens mostly the R eye to sound. Speech is absent. L Pupils as above, not responding to threat. Following intermittent simple commands on the LLE intermittently. Motor/Sensory: No involuntary movements were observed. Limited due to recent sedation. Coordination: Unable to perform finger to nose. Gait: Not tested due to patient condition. Labs Recent Labs Component Name 02/04/24 0328 01/24/24 0443 07/23/20 0649 01/20/19 1134 CHOL - 229* 254* 258* TRIG 190* 179* 179* 63 HDL - 32* 48 63 LDLCALC - 161* 173* 179* Recent Labs Component Name 02/08/24 0526 02/08/24 0011 02/07/24 1534 01/31/24 1116 01/30/24 0429 01/29/24 0259 01/28/24 0341 SODIUM 141 140 137 - 139 140 139 POTASSIUM 3.9 4.1 4.3 - 4.1 4.1 4.0 CHLORIDE 104 103 103 - 101 100 102 CO2 24 - BUN 38* 40* 38* - 17 15 15 CREATININE 0.95 1.12 1.11 - 0.80 0.74 0.75 GLUCOSE 178* 204* 202* - 146* 135* 126* CALCIUM 9.7 8.8 9.5 - 9.6 9.3 9.3 ALBUMIN - - - - 2.7* 2.7* 2.6* ALKPHOS - - - - 81 90 90 ALT - - - - 9 10 12 AST - - - - 14 14 17 TBIL - - - - 0.2 0.2 0.3 TPROT - - - - 7.8 8.2 7.8 EGFR 89* 73* 74* - >90 >90 >90 - = values in this interval not displayed. Evaluation: CT head 01/22: 1. No acute intracranial hemorrhage. 2. Involutional changes with chronic lacunar infarctions and ischemic microangiopathy. 3. Age indeterminate infarction left thalamus and less likely a sequela of trans-synaptic degeneration. MRI brain if there is concern for acute ischemia. CT head 01/23: No acute intracranial hemorrhage. Stable chronic findings. CT angio: Short segment severe, string-like stenosis of the lower basilar artery just above the vertebral confluence. Cerebral Angiogram Impression 01/23/2024: A severe stenosis in the proximal basilar artery, s/p successful balloon angioplasty. Residual stenosis about 50% in lateral view MRI Brain: 1. New 11 x 6 mm acute infarction within the right periatrial white matter/major forceps. 2. There is expected evolution of previously demonstrated acute infarctions within the left thalamus and extending into the midbrain as well as the right frontal merchant radiata as compared with 01/23/2024. 3. Persistent global involutional changes, chronic right basal ganglia lacunar infarction and underlying ischemic microangiopathy. Echo: ??? Left??Ventricle: Left ventricle size is normal. Mildly to moderately increased wall thickness. Normal systolic function. EF 50-55%. Normal wall motion. Diastolic function is indeterminate. ??? Right??Ventricle: Right ventricle is not well visualized. ??? Aortic??Valve: Mild regurgitation. EKG: Results for orders placed or performed during the hospital encounter of 01/23/24 EKG 12-LEAD Result Value Ref Range Ventricular Rate 96 BPM Atrial Rate 96 BPM P-R Interval 146 ms QRS Duration ms 78 ms Q-T Interval ms 360 ms QTC Calculation (Bezet) 454 ms Calculated P [place] 79 degrees Calculated R [place] 76 degrees Calculated T [place] -77 degrees Interpretation EKG Normal sinus rhythm ST & T wave abnormality, consider inferolateral ischemia Abnormal ECG When compared with ECG of 26-JUL-2022 16:28, Premature ventricular complexes are no longer Present Non-specific change in ST segment in Anterior leads Inverted T waves have replaced nonspecific T wave abnormality in Inferior leads T wave amplitude has increased in Anterior leads Confirmed by JUSTICE PURVIS MD ([id number]) on 01/23/2024 2:35:44 PM Tele: Cardiac Rhythm: Sinus Rhythm;Sinus Tachycardia (02/08/24 0400) LDL: Recent Labs Component Name 01/24/24 0443 07/23/20 0649 01/20/19 1134 LDLCALC 161* 173* 179* HgBA1C: Recent Labs Component Name 01/23/24 1039 09/17/23 1330 10/18/22 1045 HGBA1C 6.1* 6.5 5.9 This patient will benefit from a SGLT-2 or GLP-1, this requires close follow up with PCP or endocrine and lab monitoring. Due to this reason deferred treatment until outpatient follow up. Initial documented NIHSS Score: NIH Total: 13 (01/23/24 1048) Last Documented NIHSS Score: NIH Total: 20 (02/07/24 1203) Depression Screen Score = Does not meet criteria for screening: Aphasia PHQ-2 PHQ-9 Therapy Recommendations: Discharge Discharge Equipment Recommendations: To Be Determined (01/29/24 3453) OT Discharge Recommendations: Patient would benefit from intensive 3-hour multidisciplinary therapy(02/01/24 140) This recommendation is made due to ongoing intensive OT functional needs: ability to actively participate in intensive therapy 3 hours/day, 5 days a week;patient has the need for more than one skilled therapy service;motivated to participate in therapy;not at baseline due to impaired ability to complete ADL's;functional mobility is significantly below baseline;likely to return to the community atdischarge with support system;patient and/or caregiver require specialized training;patient demonstrates a significant functional decline and would benefit from skilled therapy intervention to restore function;patient has the ability to progress and demonstrate measurable gains as a result of skilled therapy (02/01/24 140) PT Discharge Recommendations: Patient would benefit from intensive 3-hour multidisciplinary therapy(02/01/241404) This recommendation is made due to ongoing intensive PT functional needs: patient has the ability to progress and demonstrate measurable gains as a result of skilled therapy (02/01/241404) Recommended Transportation Method: Stretcher/Ambulance (02/01/241404) Modified Mervin Score: Preadmission Modified Mervin Score: 0 (01/26/24 0936) Current Modified Mervin Score: 5 (02/01/241404) Procedures: Basilar artery??angioplasty 01/23/2024 PEG 01/30/24 Trach 02/05/2024 IMPRESSION - Acute ischemic stroke: Posterior circulation syndrome - 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 - Statin: Lipitor - VTE prevention with SCDs and Heparin - Allow permissive HTN - Maintain euglycemia, SSI - Keppra stopped, cEEG to start for 24 hours - Nutrition: NPO, PEG for nutrition and medication - PT/OT and speech therapy ongoing. - MVI, w/ thiamine and folic acid. - ICU for medical management. - Imaging reviewed Pricila Harrison, MSN, [employer]PORATE FIN[employer]CIAL ANALYST, AGNP-BC Interventional Vascular Neurology [facility] [place] Office: [phone] [facility] 5411 ATTESTATION I have seen and examined the patient with the nurse practitioner. I have re- confirmed the paula elements of the history and performed an examination. I have discussed the patient's care with the nurse practitioner. Pt has shown intermittent improvement in mentation. He opens eyes to voice and follows simple commands intermittently. MRI brain completed last evening and did not reveal extensive brainstem pathology. Pt is expected to improve with time. We will wean off keppra completely and have patient involve in more vigorous therapy. 02/08/2024 Sherie Beltre MD Interventional Vascular Neurology [facility] [place] * Chuy Siegel DO - 02/08/2024 8:59 AM CDT ICU Progress Note Subjective: Events: Patient continues to have copious secretions, mental status slightly improved this AM Symptoms: Patient unable to communicate symptoms, but does not appear to be in any distress. Continues to respond to painful stimuli. Subjective: Filed Vitals: 02/08/24 0500 02/08/24 0600 02/08/24 0735 02/08/24 0759 BP: 156/90 136/90 Pulse: 97 88 88 83 Resp: 24 17 16 Temp: 99.1 ??F (37.3 ??C) TempSrc: Axillary SpO2: 94% 95% 100% 95% Weight: Height: Artificial airway None Physical Exam: GENERAL APPEARANCE: Acutely ill appearing EYE: pupils equal and reactive, extraocular eye movements intact HEENT: NCAT, MMM copious secretions NECK: Supple Trach site slightly irritated with some secretions RESP: coarse to auscultation bilaterally. Referred vent sounds. CARDIO: Regular rate, rhythm without murmur. GI/AB: soft, nttp, normoactive bowel sounds SKIN: Normal to inspection. Warm, dry, supple, with no changes in moles or sores that will not heal. NEUROMUSC: withdraws to painful stimuli, waking to verbal stimuli, answering yes/no questions appropriately Output by Drain (mL) 02/06/24 0701 - 02/06/24 1900 02/06/24 1901 - 02/07/24 0700 02/07/24 0701 - 02/07/24 1900 02/07/24 1901 - 02/08/24 0700 02/08/24 0701 - 02/08/24 0859 Requested LDAs do not have output data documented. Peripheral IV Distal;Left;Posterior Forearm (Active) Placement Date/Time: 02/02/24 1132 Size (Gauge): 20 G Orientation: Distal;Left;Posterior Location: Forearm Insertion attempts (FOR ED ONLY): 1 Number of days: 5 Fecal Drainage Device With balloon (Active) Placement Date/Time: 02/06/24 1316 Person who placed: ZACHARY Christine Fecal Incontinence Device: With balloon Number of days: 1 Enteral - Percutaneous Endoscopic Gastrostomy Abdomen;Midline;Upper (Active) Placement Date/Time: 01/30/24 1514 Placed by: Dr. Ruffin Type: Percutaneous Endoscopic Gastrostomy Tube Location: Abdomen;Midline;Upper Size (FR): 20 Lot Number: [id number] Procedure Tolerance: Sedated Number of days: 8 Trach Bivona (Active) Placement Date/Time: 02/05/24 0800 Person who placed: robbin Brand: Bivona Airway Device: Cuffed Cuff Type: Water (Bivona) Trach size: 8 MM Number of days: 3 Central Line (Non-Tunneled) Internal Jugular Triple (Active) Placement Date/Time: 02/02/24 1645 Placed by: Dr. Jacome Central Line Checklist utilized: Yes Orientation: Left Location: Internal Jugular Lumens: Triple Number of days: 5 Indwelling Transurethral Urinary Catheter (Active) Placement Date/Time: 02/06/24 2330 Placed by: Melony Peterson Size (FR): 16 Catheter Balloon Size: 10 mL Closed System Maintained This Shift: Yes, Seal Intact Number of attempts: 1 Procedure Tolerance: Well Number of days: 1 Laboratory Results Reviewed Radiology Reviewed Assessment: Hospital Day: 16 Raza Vazquez is a 63 yom with histdory of CAD s/p CABG, obesity, HTN, HLD, DM II who presented to the ICU after an acute ischemic stroke. Timeline 01/22: Presented to ED after being found down. MRI with brainstem infarcts. 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 Transferred to ICU. 01/23: Sedation weaned. Following simple commands 01/24: Extubated 01/26: Worsening encephalopathy. cEEG initiated. Started on keppra. 01/27: EEG read normal 01/28: Transferred from ICU level of care to stroke service 01/29: PEG placed by GI 01/30: OOB to chair 02/01: Worsening mental status, not clearing secretions. ICU re-consulted. Intubated. 02/02: cont on vent support 02/03: consent obtained for trach. Cont TF and sedation. 02/04: tracheostomy 02/06: MRI for consistently poor mental status 02/07: started to wake and follow commands this AM. Plan: Respiratory: Acute hypoxic respiratory failure due to aspirations and acute ischemic stroke with poor secretion clearance - Continue ventilator support - Lung protective ventilation with goal 6-8 cc/kg IBW - Maintain Drive pressure < 15, SaO2 > 90, HOB > 30 degrees, Plateau pressure < 30 cm H20 - Wean PEEP and FiO2 as tolerated - Continue duonebs and hypertonic nebs - atropine drops for oral secretions -- Tracheostomy placed 02/04 -- will wean vent resume SBT with goal trach collar as tolerated. Aspiration PNA now with staph aureus on sputum - Completed 5 days of empiric ceftriaxone 01/27 - Sputum gram stain with MSSA -patient's mental status remains poor, febrile overnight to 102. -- change cefepime to ancef - stop date in place Cardiovascular: Permissive Hypertension - SBP goal 120-180 - resume amlodipine 5 mg - cont to wean and resume BP meds as able CAD - S/p CABG - On aspirin, atorvastatin and clopidogrel Neuro: Acute Ischemic Stroke - 2/2 proximal basilar artery stenosis - s/p angioplasty, unable to stent, c/b dissection of right distal vertebral artery - Repeat MRI done - Completed aggrastat - Continue aspirin, atorvastatin and clopidogrel - Continue modafinil for alertness Encephalopathy - fevers in the setting of above vs sepsis vs toxic from meds vs hypoactive ICU delirium - d/c levetiracetam and cefepime as possible contributor Seizures? - d/c levetiracetam - consider EEG if remains encephalopathic - d/w Dr. Beltre - No clinical signs of seizure activity. Delirium prophylaxis: - Encourage normal sleep-wake cycle: lights on during the day, frequent re- orientation, sleep hygiene, minimize sleep interruptions. - Avoid sedating medications like benzos and antipsychotics, as much as possible. - PT/OT with early mobility as appropriate ID: Sepsis with pulmonary source - Worsening leukocytosis and fevers - sputum cx with MSSA - start ancef and d/c cefepime - Continue to monitor WBC and fever curve. Renal: BOLA - improving Hyponatremia, hyperphosphatemia, NS as above. - cont trending labs - Strict Is and Os GI/Diet: Malnutrition Diagnosis Severe Protein Calorie malnutrition in context of acute disease or injury was present on admission.Diagnosis is made in consultation with clinical nutrition who have implemented a care plan. - resumed TFs - Continue to supplement with thiamine, folic acid and MVI. Endo: DM II - Continue SSI Q 6 - resume NPH 15 u q12hr Heme: DVT ppx - SQ heparin Prognosis: Guarded Family updates: family updated 02/05. Code Status: Full Code Disposition: Case management planning LTAC transfer. Critical Care Time: I personally spent 50 minutes providing Critical Care services, time was exclusive to this patient and does not include time spent teaching or in procedures. Chuy Sieegl DO 02/08/24 8:59 AM Critical Care Medicine * Travis Dubose, RD/LDN - 02/08/2024 8:37 AM CDT Nutrition Re-Assessment Brief Synopsis: Patient at Nutrition Risk and meets criteria for Severe Protein Calorie malnutrition. Criteria from 01/30. Weight Change: Weight Loss: > or equal to 2% x 1 week Energy Intake: < 50% of estimated energy requirement for > 5 days Fat Loss Identified: none Muscle Loss Identified: mild Nutrition Plan: ?? Increase Vital 1.2 to 75 ml/hr, water flush per MD. ?? Reduce protein additives to 1 pkt/day. Provides: 2160 kcal, 135 g pro, 1460 ml free water / 60 kcal, 15 g pro from additive. Recommendations to Physician: If stooling does not improve, suggest adding 1 fiber additive BID (10 kcal, 6 g soluble fiber). Discharge Needs: Nutritional Supplement at Discharge: N/A (tube feeding) Patient Summary: Pt remains on the vent via trach. More alert and following more commands today per nurse. Started on NS IVF. Labs reviewed. TF continues and is tolerating. FMS output 770 ml yesterday, 450 ml since MN. Bowel regimen was reduced yesterday and discontinued today. Will monitor. Suggest start fiber additives if does not improve with discontinuation of bowel regimen. Nutrition care plan discussed today during multidisciplinary rounds. Assessment: Med/Surg History and Clinical Diagnoses: Multiple brainstem infarcts, acute respiratory failure, hypotension, poorly controlled DM, alcohol use disorder, PEG placed 01/29, trach placed 02/04; Hx: DM2, CAD, CABG 2018, anemia, HLD, obesity Diet order accuracy Current diet order: NPO Nutritional Supplement at Discharge: N/A (tube feeding) Current tube feeding order: Vital 1.2 at 60 ml/hr, water flush per MD / 2 protein additives BID (1728 kcal, 108 g pro, 1168 ml free water / 240 kcal, 60 g pro from additives) Nutrition recommendation: alter/change nutrition order Food Allergies: No known food allergies GI Concerns: Diarrhea (FMS placed 02/05) Chewing/Swallowing: Other (Comment) (trach) Pain affecting intake: No Admission weight: Weight: 136.1 kg (300 lb) (01/23/24 1055) Weight Method : Stated (01/23/24 1055) Patient Vitals for the past 336 hrs: Weight Weight Method 02/08/24 0400 123 kg (271 lb 2.7 oz) Bed scale 02/07/24 0400 123 kg (271 lb 2.7 oz) Bed scale 02/06/24 0347 125 kg (275 lb 9.2 oz) Bed scale 02/05/24 0400 129.1 kg (284 lb 9.6 oz) Bed scale 02/04/24 0212 128.9 kg (284 lb 3.2 oz) Bed scale 02/03/24 0351 129 kg (284 lb 6.3 oz) Bed scale 02/02/24 0400 129 kg (284 lb 6.3 oz) Bed scale 02/01/24 0400 129 kg (284 lb 6.3 oz) Bed scale 01/31/24 0400 130.5 kg (287 lb 11.2 oz) Bed scale 01/30/24 0300 121.5 kg (267 lb 13.7 oz) Bed scale 01/29/24 0400 133 kg (293 lb 3.4 oz) Bed scale 01/28/24 0400 135 kg (297 lb 9.9 oz) Bed scale 01/26/24 0430 133 kg (293 lb 3.4 oz) Bed scale BMI: Body mass index is 33.01 kg/m??. BMI Range: Obese Class 1 WT Comments: Reviewed Component Name 02/08/24 0526 02/08/24 0011 02/07/24 1534 SODIUM 141 140 137 POTASSIUM 3.9 4.1 4.3 CHLORIDE 104 103 103 CO2 24 BUN 38* 40* 38* CREATININE 0.95 1.12 1.11 GLUCOSE 178* 204* 202* CALCIUM 9.7 8.8 9.5 EGFR 89* 73* 74* EGFRAFR - - - Patient Vitals for the past 30 hrs: Glucose Bedside (mg/dL) 02/08/24 0636 200 mg/dL 02/08/24 0012 195 mg/dL 02/07/24 0618 248 mg/dL MEDICATIONS FOR CURRENT ENCOUNTER: ?? SCHEDULED MEDICATIONS: ?? 0.9% NaCl injection 3 mL, Intracatheter, q8h ?? albuterol-ipratropium (Duo-Neb) nebulizer solution 3 mL, Inhalation, q6h ?? artificial tears ophthalmic ointment, Each Eye, q8h ?? aspirin chew tablet 81 mg, Enteral Tube, QDAY ?? atorvastatin (Lipitor) tablet 40 mg, Enteral Tube, AT BEDTIME ?? cefepime (Maxipime) 2,000 mg in 0.9% NaCl IV 50 mL IVPB, Intravenous, q8h ?? chlorhexidine (Peridex) 0.12 % oral solution 15 mL, Mouth/Throat, BID ?? clopidogrel (plaVIX) tablet 75 mg, Enteral Tube, QDAY ?? famotidine (Pepcid) tablet 20 mg, Enteral Tube, BID ?? folic acid (Folvite) tablet 1 mg, Enteral Tube, QDAY ?? heparin injection 5,000 Units, Subcutaneous, BID ?? insulin aspart (NovoLOG) pen 0-18 Units, Subcutaneous, q6h ?? insulin NPH pen 15 Units, Subcutaneous, q12h ?? levETIRAcetam (Keppra) tablet 250 mg, Enteral Tube, BID ?? metroNIDAZOLE (Flagyl) tablet 500 mg, Enteral Tube, q8h ?? modafinil (Provigil) tablet 200 mg, Enteral Tube, QAM ?? multiple vitamins with minerals tablet 1 tablet, Enteral Tube, QDAY ?? senna-docusate (Senokot-S) tablet 2 tablet, Enteral Tube, BID ?? sodium chloride 3 % nebulizer solution 3 mL, Inhalation, q6h ?? thiamine (Vitamin B-1) tablet 100 mg, Enteral Tube, QDAY ?? [COMPLETED] alteplase (Cathflo Activase) injection 2 mg, Intravenous, Once Skin/Wound: Exceptions per nursing assessment (swollen) Estimated Energy Needs: KCAL: 8748-6635 kcal/day (15-18 kcal/kg BW) / 2406 kcal/day ([place]) Protein (g): 138-184 g pro/day (1.5-2.0 g/kg IBW) (vent/obesity) Fluid (ml): Other (comments) (per MD) Needs based on: Kcal/kg- (Comment) (kcal - 123 kg BW 02/07, pro - 91.8 kg IBW) Recommended Access Route: TF Education needed: None Education Provided: Not appropriate Nutrition Care Process (1) Nutrition Diagnostic Statement: Inadequate oral intake related to:: decreased ability to consume or tolerate food and/or fluids due to illness as evidenced by:: --- (NPO) Nutrition Intervention: Enteral nutrition: Monitoring: - Nutrition support. - Weight, labs. Evaluation: Diagnostic Statement #1 Goals: Nutrition Goal: Enteral/Parenteral Nutrition prescription will be consistent with estimated nutrient needs Nutrition Goal Timeframe: Throughout stay Nutrition Goal Progress: Progressing toward goal;Continue with current goal * Travis Dubose RD/HAFSA - 02/08/2024 8:37 AM CDT Problem: Oral Intake: Inadequate oral intake Description: related to:: decreased ability to consume or tolerate food and/or fluids due to illness Goal: Enteral/parenteral nutrition prescription will be consistent with estimated needs Description: Raza Francis Nutrition Goal: Enteral/Parenteral Nutrition prescription will be consistent with estimated nutrient needs Nutrition Goal Timeframe: Throughout stay Outcome: Progressing Note: Pt remains on the vent via trach. Tolerating TF. Continue care plan. * Macho Solis - 02/08/2024 8:04 AM CDT PT orders acknowledged. Per OT discussion with MDs this AM during turbo rounds, pt not appropriate to mobilize with therapy this date. Will continue to monitor and see when able. Davon Hernandez [phone] * Sloane Caballero OT - 02/08/2024 7:43 AM CDT Therapy orders acknowledged. Per discussion with MDs this AM during turbo rounds, pt not appropriate to mobilize with therapy this date. Will continue to follow and see when able. SHELLY Anton/Boris [phone] * Christos Sheikh RCP - 02/08/2024 4:39 AM CDT Spontaneous Breathing Trial Times Ventilator Liberation Times Ventilator Liberation Time ON: 0425 Ventilator Liberation Time OFF: 0433 Initial Settings PSV settin CPAP Settings cm H2O (Initial): 5 Subsequent Settings PSV settin CPAP Settings cm H2O (Subsequent): 5 Results Comments Passed Ventilator Liberation?: No Cuff leak test completed?: Not performed Ventilator Liberation Comments: Attempted 5/5 pt did okay at first but then became tachypneic, attempted 8/5 with no change pt was breathing in the 50s. MD made aware, pt placed back in full support * Christos Sheikh RCP - 02/08/2024 3:37 AM CDT Patient is mechanically ventilated mode APVCMV RR 14 VT 520 PEEP 5 FIO2 21. 8.0 Bivona TTS 9mL. Patient will continue to be ventilated. Will continue to SBT and assess as able. * Emelia Bui RCP - 02/07/2024 6:18 PM CDT Mr Vazquez continues on mechanical ventilation with settings of Mode APV/CMV, VT 520, RR 14, PEEP 5, FiO2 21%. Will continue to monitor and wean as able. No sbt per MD * Luz Moser, PT - 02/07/2024 5:01 PM CDT Per MRI result, evolving strokes. PT to continue to hold d/t pt's worsening mental status to participate with Therapy. Will continue to follow. Luz PT, CCI [phone] * Kel Jacome MD - 02/07/2024 4:35 PM CDT ICU Progress Note Subjective: Events: Patient continues to have secretions, mental status remains poor. Patient had MRI 02/06. Symptoms: Patient unable to communicate symptoms, but does not appear to be in any distress. Continues to respond to painful stimuli. Subjective: Filed Vitals: 02/07/24 1400 02/07/24 1415 02/07/24 1541 02/07/24 1547 BP: 115/80 Pulse: 97 99 107 105 Resp: 19 17 17 Temp: 98.9 ??F (37.2 ??C) TempSrc: Axillary SpO2: 94% 94% 94% 93% Weight: Height: Artificial airway None Physical Exam: GENERAL APPEARANCE: Acutely ill appearing intubated EYE: pupils equal and reactive, extraocular eye movements intact HEENT: NCAT, MMM copious oral secretions NECK: Supple RESP: coarse to auscultation bilaterally. Referred vent sounds. CARDIO: Regular rate, rhythm without murmur. GI/AB: soft, nttp, normoactive bowel sounds SKIN: Normal to inspection. Warm, dry, supple, with no changes in moles or sores that will not heal. NEUROMUSC: withdraws to painful stimuli, does not follow commands, limited exam Output by Drain (mL) 02/05/24 0701 - 02/05/24 1900 02/05/24 190 - 02/06/24 0702/06/24 0701 - 02/06/24 1900 02/06/24 190 - 02/07/24 0702/07/24 0701 - 02/07/24 1635 Requested LDAs do not have output data documented. Peripheral IV Distal;Left;Posterior Forearm (Active) Placement Date/Time: 02/02/24 1132 Size (Gauge): 20 G Orientation: Distal;Left;Posterior Location: Forearm Insertion attempts (FOR ED ONLY): 1 Number of days: 5 Fecal Drainage Device With balloon (Active) Placement Date/Time: 02/06/24 1316 Person who placed: ZACHARY Christine Fecal Incontinence Device: With balloon Number of days: 1 Enteral - Percutaneous Endoscopic Gastrostomy Abdomen;Midline;Upper (Active) Placement Date/Time: 01/30/24 1514 Placed by: Dr. Ruffin Type: Percutaneous Endoscopic Gastrostomy Tube Location: Abdomen;Midline;Upper Size (FR): 20 Lot Number: [id number] Procedure Tolerance: Sedated Number of days: 8 Trach Bivona (Active) Placement Date/Time: 02/05/24 0800 Person who placed: robbin Brand: Bivona Airway Device: Cuffed Cuff Type: Water (Bivona) Trach size: 8 MM Number of days: 2 Central Line (Non-Tunneled) Internal Jugular Triple (Active) Placement Date/Time: 02/02/24 1645 Placed by: Dr. Jacome Central Line Checklist utilized: Yes Orientation: Left Location: Internal Jugular Lumens: Triple Number of days: 4 Indwelling Transurethral Urinary Catheter (Active) Placement Date/Time: 02/06/24 2330 Placed by: Melony Peterson Size (FR): 16 Catheter Balloon Size: 10 mL Closed System Maintained This Shift: Yes, Seal Intact Number of attempts: 1 Procedure Tolerance: Well Number of days: 0 Laboratory Results Reviewed Radiology Reviewed Assessment: Hospital Day: 15 Raza Vazquez is a 63 yom with histdory of CAD s/p CABG, obesity, HTN, HLD, DM II who presented to the ICU after an acute ischemic stroke. Timeline 01/22: Presented to ED after being found down. MRI with brainstem infarcts. 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 Transferred to ICU. 01/23: Sedation weaned. Following simple commands 01/24: Extubated 01/26: Worsening encephalopathy. cEEG initiated. Started on keppra. 01/27: EEG read normal 01/28: Transferred from ICU level of care to stroke service 01/29: PEG placed by GI 01/30: OOB to chair 02/01: Worsening mental status, not clearing secretions. ICU re-consulted. Intubated. 02/02: cont on vent support 02/03: consent obtained for trach. Cont TF and sedation. 02/04: tracheostomy 02/06: MRI for consistently poor mental status Plan: Respiratory: Acute hypoxic respiratory failure due to aspirations and acute ischemic stroke with poor secretion clearance - Continue ventilator support - Lung protective ventilation with goal 6-8 cc/kg IBW - Maintain Drive pressure < 15, SaO2 > 90, HOB > 30 degrees, Plateau pressure < 30 cm H20 - Wean PEEP and FiO2 as tolerated - Continue duonebs and hypertonic nebs - atropine drops for oral secretions -- Tracheostomy placed this AM (02/04) -- will wean vent resume SBT with goal trach collar as tolerated. Aspiration PNA - Completed 5 days of empiric ceftriaxone 01/27 - Sputum gram stain with GPCs, MRSA swab negative. -patient's mental status remains poor, febrile overnight to 102. Started cefepime, vancomycin and metronidazole. Cultures requested. MRSA PCR negative, stopped vancomycin. Cardiovascular: Permissive Hypertension - SBP goal 120-180 - d/c losartan and amlodipine given pressor support - start on NE post intubation for hypotension - suspect sedation related vaso plegia. - cont to wean and resume BP meds as able CAD - S/p CABG - On aspirin, atorvastatin and clopidogrel Neuro: Pain/Sedation - started fentanyl gtt in preparation for trach -- weaned off sedation , mental status remains poor. MRI completed without clear etiology for patient's mental status. 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 Starting NS for mild hyponatremia. Delirium prophylaxis: - Encourage normal sleep-wake cycle: lights on during the day, frequent re- orientation, sleep hygiene, minimize sleep interruptions. - Avoid sedating medications like benzos and antipsychotics, as much as possible. - PT/OT with early mobility as appropriate ID: Worsening leukocytosis - Continue to monitor WBC and fever curve. Renal: BOLA - improving Hyponatremia, hyperphosphatemia, NS as above. - cont trending labs - Strict Is and Os GI/Diet: Malnutrition Diagnosis Severe Protein Calorie malnutrition in context of acute disease or injury was present on admission.Diagnosis is made in consultation with clinical nutrition who have implemented a care plan. - resumed TFs - Continue to supplement with thiamine, folic acid and MVI. Endo: DM II - Continue SSI Q 6 - resume NPH 10 u q12hr Heme: DVT ppx - SQ heparin Prognosis: Guarded Family updates: family updated 02/05. Code Status: Full Code Disposition: Case management planning LTAC transfer. Critical Care Time: I personally spent 45 minutes providing Critical Care services, time was exclusive to this patient and does not include time spent teaching or in procedures. Kel Jacome MD 02/07/24 4:35 PM Critical Care Medicine * Sloane Caballero OT - 02/07/2024 3:00 PM CDT Therapy orders acknowledged. Care coordinated with RN who reports pt KASEY in MRI. Will continue to follow and see when able. SHELLY Anton/Boris [phone] * Kecia Orantes RN - 02/07/2024 2:54 PM CDT Problem: Fall Risk Goal: Patient will remain free of falls Outcome: Progressing Note: RAZA VAZQUEZ will have no falls this shift effective by frequent rounding and bed alarm when clinically relevant. Problem: Skin Integrity Goal: Skin integrity is maintained or improved Outcome: Progressing Note: RAZA VAZQUEZ will have no worsening or new skin breakdown this shift effective by turning. Turing necessity will be assessed due to patients functional status and Evan score. Problem: Pain/Discomfort Goal: Patient exhibits reduced pain/discomfort as evidenced by pain scores Outcome: Progressing Note: Raza Vazquez will remain at functional level of pain during this shift by frequently assessing for pain and implementing pharmacological and non-pharmacological interventions. * Annamarie Bonilla RN - 02/07/2024 2:45 PM CDT Care Coordination Progress Note CM met with Dr Jacome, pt is not ready for LTAC at this time. Anticipated level of care at discharge: Intermediate Acute Care (LTAC) Anticipated level of care provider: [facility] Anticipated Discharge Date: 02/12/24 Transportation at Discharge: other (TBD) Portions of this note have been copied from the medical record, but edited appropriately to accurately reflect the patient's current clinical state. Annamarie Bonilla RN Case Management - ICU [address] [facility] Ascom: [phone] O: [id number] * Sherie Beltre MD - 02/07/2024 11:00 AM CDT INTERVENTIONAL STROKE NEUROLOGY PROGRESS NOTE Hospital Day: 15 A 63 year old male was admitted with PMH of DM, HTN, alcohol abuse who presented on 01/23/2024 10:27AM with chief complaint of unresponsiveness. He was found down at his home by the recharger person he had scheduled to visit his home today. His last known well was not clear. I spoke with his sister who said they had not seen or spoken to him in the last 24 hrs. He was able to follow some command upon arrival to the hospital but had a hard time moving his lower limbs. Suspicion of posterior circulation stroke was entertained. MRI brain stat was quickly obtained showing multiple infarcts in the brainstem including the left midbrain and left thalamus and right periventricular region. 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 Decision to take to IVRfor exploration and potential management. He was intubated in the ER for airway protection. CTH stable. Family reports L pupil has been larger for 2+months. Extubated 01/24. Reported seizure activity on 01/26, started on Keppra. No further seizure since. PEG placed for neurogenic dysphagia, TF restarted. intubated and sedated on 02/01 due to respiratory failure. 02/07/2024: pt is remaining obtunded. He remains about the same as yesterday. He is following commands intermittently on the L side. Since extubation, mentation has remained repressed. MEDICATIONS FOR CURRENT ENCOUNTER: SCHEDULED MEDICATIONS: 0.9% NaCl injection 3 mL, Intracatheter, q8h albuterol-ipratropium (Duo-Neb) nebulizer solution 3 mL, Inhalation, q6h artificial tears ophthalmic ointment, Each Eye, q8h aspirin chew tablet 81 mg, Enteral Tube, QDAY atorvastatin (Lipitor) tablet 80 mg, Enteral Tube, AT BEDTIME cefepime (Maxipime) 2,000 mg in 0.9% NaCl IV 50 mL IVPB, Intravenous, q8h chlorhexidine (Peridex) 0.12 % oral solution 15 mL, Mouth/Throat, BID clopidogrel (plaVIX) tablet 75 mg, Enteral Tube, QDAY famotidine (Pepcid) tablet 20 mg, Enteral Tube, BID folic acid (Folvite) tablet 1 mg, Enteral Tube, QDAY heparin injection 5,000 Units, Subcutaneous, BID insulin aspart (NovoLOG) pen 0-18 Units, Subcutaneous, q6h insulin NPH pen 15 Units, Subcutaneous, q12h levETIRAcetam (Keppra) tablet 500 mg, Enteral Tube, BID metroNIDAZOLE (Flagyl) tablet 500 mg, Enteral Tube, q8h modafinil (Provigil) tablet 200 mg, Enteral Tube, QAM multiple vitamins with minerals tablet 1 tablet, Enteral Tube, QDAY senna-docusate (Senokot-S) tablet 2 tablet, Enteral Tube, BID sodium chloride 3 % nebulizer solution 3 mL, Inhalation, q6h thiamine (Vitamin B-1) tablet 100 mg, Enteral Tube, QDAY [COMPLETED] insulin NPH pen 5 Units, Subcutaneous, Once ??? [COMPLETED] vancomycin (Vancocin) 2,500 mg in 550 mL IVPB, Intravenous, Once ??? CONTINUOUS MEDICATIONS: PRN MEDICATIONS: Or Or 0.9% NaCl injection 1-10 mL, Intracatheter, PRN acetaminophen (Tylenol) tablet 650 mg, Enteral Tube, q4h PRN atropine 1 % ophthalmic solution 2 drop, Sublingual, q6h PRN dextrose 10 % IV bolus, Intravenous, PRN dextrose 10 % IV bolus, Intravenous, PRN glucagon (Glucagen) injection 1 mg, Subcutaneous, PRN hydrALAZINE (Apresoline) injection 10 mg, Intravenous, q1h PRN ondansetron (Zofran) injection 4 mg, Intravenous, q4h PRN ??? prochlorperazine (Compazine) injection 10 mg, Intravenous, q4h PRN Peripheral IV Distal;Left;Posterior Forearm (Active) Placement Date/Time: 02/02/24 1132 Size (Gauge): 20 G Orientation: Distal;Left;Posterior Location: Forearm Insertion attempts (FOR ED ONLY): 1 Number of days: 4 Fecal Drainage Device With balloon (Active) Placement Date/Time: 02/06/24 1316 Person who placed: ZACHARY Christine Fecal Incontinence Device: With balloon Number of days: 0 Enteral - Percutaneous Endoscopic Gastrostomy Abdomen;Midline;Upper (Active) Placement Date/Time: 01/30/24 1514 Placed by: Dr. Ruffin Type: Percutaneous Endoscopic Gastrostomy Tube Location: Abdomen;Midline;Upper Size (FR): 20 Lot Number: [id number] Procedure Tolerance: Sedated Number of days: 7 Trach Bivona (Active) Placement Date/Time: 02/05/24 0800 Person who placed: robbin Brand: Bivona Airway Device: Cuffed Cuff Type: Water (Bivona) Trach size: 8 MM Number of days: 2 Central Line (Non-Tunneled) Internal Jugular Triple (Active) Placement Date/Time: 02/02/24 1645 Placed by: Dr. Jacome Central Line Checklist utilized: Yes Orientation: Left Location: Internal Jugular Lumens: Triple Number of days: 4 Indwelling Transurethral Urinary Catheter (Active) Placement Date/Time: 02/06/24 2330 Placed by: Melony Peterson Size (FR): 16 Catheter Balloon Size: 10 mL Closed System Maintained This Shift: Yes, Seal Intact Number of attempts: 1 Procedure Tolerance: Well Number of days: 0 BP 147/94 Pulse 90 Temp 99.3 ??F (37.4 ??C) (Axillary) Resp 17 Ht 1.93 m (6' 4 ) Wt 123 kg (271 lb 2.7 oz) SpO2 100% Wt Readings from Last 3 Encounters: 02/07/24 123 kg (271 lb 2.7 oz) 09/17/23 (!) 148.6 kg (327 lb 9.6 oz) 05/07/23 (!) 145.2 kg (320 lb) Multisystem Examination: Neck: Limited due to Trach Respiratory: No respiratory distress. Cardiovascular: Normal heart rate, Normal rhythm. GI: Soft, No tenderness Integument: Warm, Dry Pupillometry Initial: NPI Left: 0 (01/23/24 1700) NPI Right: 4.1 (01/23/241699) Pupil Size Left (MM): 4.9 (01/23/241699) Pupil Size Right (MM): 2.38 (01/23/241699) Current: NPI Left: 0.9 (02/02/24 0400) NPI Right: 4.5 (02/02/24399) Pupil Size Left (MM): 4.97 (02/02/240) Pupil Size Right (MM): 2.87 (02/02/24 0400) Neurological Examination: The patient is trached, off sedation, Drowsy, opens mostly the R eye to sound. Speech is absent. L Pupils as above, not responding to threat. Following intermittent simple commands on the LLE intermittently. Motor/Sensory: No involuntary movements were observed. Limited due to recent sedation. Coordination: Unable to perform finger to nose. Gait: Not tested due to patient condition. Labs Recent Labs Component Name 02/04/24 0328 01/24/24 0443 07/23/20 0649 01/20/19 1134 CHOL - 229* 254* 258* TRIG 190* 179* 179* 63 HDL - 32* 48 63 LDLCALC - 161* 173* 179* Recent Labs Component Name 02/07/24 0422 02/06/24 1745 02/06/24 0420 01/31/24 1116 01/30/24 0429 01/29/24 0259 01/28/24 0341 SODIUM 135* 136 137 - 139 140 139 POTASSIUM 4.1 4.4 4.8 - 4.1 4.1 4.0 CHLORIDE 105 102 102 - 101 100 102 CO2 23 23 26 - 26 27 26 BUN 37* 36* 34* - 17 15 15 CREATININE 0.96 1.10 1.21 - 0.80 0.74 0.75 GLUCOSE 241* 232* 194* - 146* 135* 126* CALCIUM 9.1 9.7 9.5 - 9.6 9.3 9.3 ALBUMIN - - - - 2.7* 2.7* 2.6* ALKPHOS - - - - 81 90 90 ALT - - - - 9 10 12 AST - - - - 14 14 17 TBIL - - - - 0.2 0.2 0.3 TPROT - - - - 7.8 8.2 7.8 EGFR 88* 74* 66* - >90 >90 >90 - = values in this interval not displayed. Evaluation: CT head 01/22: 1. No acute intracranial hemorrhage. 2. Involutional changes with chronic lacunar infarctions and ischemic microangiopathy. 3. Age indeterminate infarction left thalamus and less likely a sequela of trans-synaptic degeneration. MRI brain if there is concern for acute ischemia. CT head 01/23: No acute intracranial hemorrhage. Stable chronic findings. CT angio: Short segment severe, string-like stenosis of the lower basilar artery just above the vertebral confluence. Cerebral Angiogram Impression 01/23/2024: A severe stenosis in the proximal basilar artery, s/p successful balloon angioplasty. Residual stenosis about 50% in lateral view Echo: ??? Left??Ventricle: Left ventricle size is normal. Mildly to moderately increased wall thickness. Normal systolic function. EF 50-55%. Normal wall motion. Diastolic function is indeterminate. ??? Right??Ventricle: Right ventricle is not well visualized. ??? Aortic??Valve: Mild regurgitation. EKG: Results for orders placed or performed during the hospital encounter of 01/23/24 EKG 12-LEAD Result Value Ref Range Ventricular Rate 96 BPM Atrial Rate 96 BPM P-R Interval 146 ms QRS Duration ms 78 ms Q-T Interval ms 360 ms QTC Calculation (Bezet) 454 ms Calculated P [place] 79 degrees Calculated R [place] 76 degrees Calculated T [place] -77 degrees Interpretation EKG Normal sinus rhythm ST & T wave abnormality, consider inferolateral ischemia Abnormal ECG When compared with ECG of 26-JUL-2022 16:28, Premature ventricular complexes are no longer Present Non-specific change in ST segment in Anterior leads Inverted T waves have replaced nonspecific T wave abnormality in Inferior leads T wave amplitude has increased in Anterior leads Confirmed by JUSTICE PURVIS MD ([id number]) on 01/23/2024 2:35:44 PM Tele: Cardiac Rhythm: Sinus Rhythm;Sinus Tachycardia (02/07/24 0400) LDL: Recent Labs Component Name 01/24/24 0443 07/23/20 0649 01/20/19 1134 LDLCALC 161* 173* 179* HgBA1C: Recent Labs Component Name 01/23/24 1039 09/17/23 1330 10/18/22 1045 HGBA1C 6.1* 6.5 5.9 This patient will benefit from a SGLT-2 or GLP-1, this requires close follow up with PCP or endocrine and lab monitoring. Due to this reason deferred treatment until outpatient follow up. Initial documented NIHSS Score: NIH Total: 13 (01/23/24 1048) Last Documented NIHSS Score: NIH Total: 17 (02/06/241999) Depression Screen Score = Does not meet criteria for screening: Aphasia PHQ-2 PHQ-9 Therapy Recommendations: Discharge Discharge Equipment Recommendations: To Be Determined (01/29/24 6496) OT Discharge Recommendations: Patient would benefit from intensive 3-hour multidisciplinary therapy(02/01/24 140) This recommendation is made due to ongoing intensive OT functional needs: ability to actively participate in intensive therapy 3 hours/day, 5 days a week;patient has the need for more than one skilled therapy service;motivated to participate in therapy;not at baseline due to impaired ability to complete ADL's;functional mobility is significantly below baseline;likely to return to the community atdischarge with support system;patient and/or caregiver require specialized training;patient demonstrates a significant functional decline and would benefit from skilled therapy intervention to restore function;patient has the ability to progress and demonstrate measurable gains as a result of skilled therapy (02/01/24 140) PT Discharge Recommendations: Patient would benefit from intensive 3-hour multidisciplinary therapy(02/01/24 140) This recommendation is made due to ongoing intensive PT functional needs: patient has the ability to progress and demonstrate measurable gains as a result of skilled therapy (02/01/24 140) Recommended Transportation Method: Stretcher/Ambulance (02/01/24 140) Modified [place] Score: Preadmission Modified Mervin Score: 0 (01/26/24 0936) Current Modified [place] Score: 5 (02/01/24 1405) Procedures: Basilar artery??angioplasty 01/23/2024 PEG 01/30/24 Trach 02/05/2024 IMPRESSION - Acute ischemic stroke: Posterior circulation syndrome - 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 - Statin: Lipitor - VTE prevention with SCDs and Heparin - Allow permissive HTN - Maintain euglycemia, SSI - Keppra 500 mg BID - Nutrition: NPO, PEG for nutrition and medication - PT/OT and speech therapy ongoing. - MVI, w/ thiamine and folic acid. - ICU for medical management. Pt has trach in place. He is continuing to remain obtunded and waxing and waning in mentation. We will continue to monitor for improvement. Continue to avoid sedating medications. Decrease the dose of keppra, with caution to seizure threshold. Will obtain repeat neuro imaging: CT head or MRI brain. 02/07/2024 Sherie Beltre MD Interventional Vascular Neurology [facility] [place] * Pricila Harrison, CORPORATE FINANCIAL ANALYST-HAND CLERICAL VERIFIER - 02/07/2024 9:51 AM CDT INTERVENTIONAL STROKE NEUROLOGY PROGRESS NOTE Hospital Day: 15 A 63 year old male was admitted with PMH of DM, HTN, alcohol abuse who presented on 01/23/2024 10:27AM with chief complaint of unresponsiveness. He was found down at his home by the recharger person he had scheduled to visit his home today. His last known well was not clear. I spoke with his sister who said they had not seen or spoken to him in the last 24 hrs. He was able to follow some command upon arrival to the hospital but had a hard time moving his lower limbs. Suspicion of posterior circulation stroke was entertained. MRI brain stat was quickly obtained showing multiple infarcts in the brainstem including the left midbrain and left thalamus and right periventricular region. 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 Decision to take to IVRfor exploration and potential management. He was intubated in the ER for airway protection. CTH stable. Family reports L pupil has been larger for 2+months. Extubated 01/24. Reported seizure activity on 01/26, started on Keppra. No further seizure since. PEG placed for neurogenic dysphagia, TF restarted. intubated and sedated on 02/01 due to respiratory failure. 02/07/2024: Patient seen laying in bed, trach in place, intermittently following commands with repeated stimulation and delay in response. Weaned off all sedation around midnight 02/05, repeat CTH today. MEDICATIONS FOR CURRENT ENCOUNTER: SCHEDULED MEDICATIONS: 0.9% NaCl injection 3 mL, Intracatheter, q8h albuterol-ipratropium (Duo-Neb) nebulizer solution 3 mL, Inhalation, q6h artificial tears ophthalmic ointment, Each Eye, q8h aspirin chew tablet 81 mg, Enteral Tube, QDAY atorvastatin (Lipitor) tablet 40 mg, Enteral Tube, AT BEDTIME cefepime (Maxipime) 2,000 mg in 0.9% NaCl IV 50 mL IVPB, Intravenous, q8h chlorhexidine (Peridex) 0.12 % oral solution 15 mL, Mouth/Throat, BID clopidogrel (plaVIX) tablet 75 mg, Enteral Tube, QDAY famotidine (Pepcid) tablet 20 mg, Enteral Tube, BID folic acid (Folvite) tablet 1 mg, Enteral Tube, QDAY heparin injection 5,000 Units, Subcutaneous, BID insulin aspart (NovoLOG) pen 0-18 Units, Subcutaneous, q6h insulin NPH pen 15 Units, Subcutaneous, q12h levETIRAcetam (Keppra) tablet 250 mg, Enteral Tube, BID metroNIDAZOLE (Flagyl) tablet 500 mg, Enteral Tube, q8h modafinil (Provigil) tablet 200 mg, Enteral Tube, QAM multiple vitamins with minerals tablet 1 tablet, Enteral Tube, QDAY senna-docusate (Senokot-S) tablet 2 tablet, Enteral Tube, BID sodium chloride 3 % nebulizer solution 3 mL, Inhalation, q6h thiamine (Vitamin B-1) tablet 100 mg, Enteral Tube, QDAY [COMPLETED] insulin NPH pen 5 Units, Subcutaneous, Once ??? [COMPLETED] vancomycin (Vancocin) 2,500 mg in 550 mL IVPB, Intravenous, Once ??? CONTINUOUS MEDICATIONS: PRN MEDICATIONS: Or Or 0.9% NaCl injection 1-10 mL, Intracatheter, PRN acetaminophen (Tylenol) tablet 650 mg, Enteral Tube, q4h PRN atropine 1 % ophthalmic solution 2 drop, Sublingual, q6h PRN dextrose 10 % IV bolus, Intravenous, PRN dextrose 10 % IV bolus, Intravenous, PRN glucagon (Glucagen) injection 1 mg, Subcutaneous, PRN hydrALAZINE (Apresoline) injection 10 mg, Intravenous, q1h PRN ondansetron (Zofran) injection 4 mg, Intravenous, q4h PRN ??? prochlorperazine (Compazine) injection 10 mg, Intravenous, q4h PRN Peripheral IV Distal;Left;Posterior Forearm (Active) Placement Date/Time: 02/02/24 1132 Size (Gauge): 20 G Orientation: Distal;Left;Posterior Location: Forearm Insertion attempts (FOR ED ONLY): 1 Number of days: 4 Fecal Drainage Device With balloon (Active) Placement Date/Time: 02/06/24 1316 Person who placed: ZACHARY Christine Fecal Incontinence Device: With balloon Number of days: 0 Enteral - Percutaneous Endoscopic Gastrostomy Abdomen;Midline;Upper (Active) Placement Date/Time: 01/30/24 1514 Placed by: Dr. Ruffin Type: Percutaneous Endoscopic Gastrostomy Tube Location: Abdomen;Midline;Upper Size (FR): 20 Lot Number: [id number] Procedure Tolerance: Sedated Number of days: 7 Trach Bivona (Active) Placement Date/Time: 02/05/24 0800 Person who placed: robbin Brand: Bivona Airway Device: Cuffed Cuff Type: Water (Bivona) Trach size: 8 MM Number of days: 2 Central Line (Non-Tunneled) Internal Jugular Triple (Active) Placement Date/Time: 02/02/24 1645 Placed by: Dr. Jacome Central Line Checklist utilized: Yes Orientation: Left Location: Internal Jugular Lumens: Triple Number of days: 4 Indwelling Transurethral Urinary Catheter (Active) Placement Date/Time: 02/06/24 2330 Placed by: Melony Peterson Size (FR): 16 Catheter Balloon Size: 10 mL Closed System Maintained This Shift: Yes, Seal Intact Number of attempts: 1 Procedure Tolerance: Well Number of days: 0 BP 147/94 Pulse 90 Temp 99.3 ??F (37.4 ??C) (Axillary) Resp 17 Ht 1.93 m (6' 4 ) Wt 123 kg (271 lb 2.7 oz) SpO2 100% Wt Readings from Last 3 Encounters: 02/07/24 123 kg (271 lb 2.7 oz) 09/17/23 (!) 148.6 kg (327 lb 9.6 oz) 05/07/23 (!) 145.2 kg (320 lb) Multisystem Examination: Neck: Limited due to Trach Respiratory: No respiratory distress. Cardiovascular: Normal heart rate, Normal rhythm. GI: Soft, No tenderness Integument: Warm, Dry Pupillometry Initial: NPI Left: 0 (01/23/24 1700) NPI Right: 4.1 (01/23/24 1700) Pupil Size Left (MM): 4.9 (01/23/24 1700) Pupil Size Right (MM): 2.38 (01/23/24 1700) Current: NPI Left: 0.9 (02/02/24 0400) NPI Right: 4.5 (02/02/24 0400) Pupil Size Left (MM): 4.97 (02/02/24 0400) Pupil Size Right (MM): 2.87 (02/02/24 0400) Neurological Examination: The patient is trached, off sedation, drowsy appearing. Speech is absent due to trach. L Pupils as above, R responding to threat. Following simple commands to LUE intermittently. Motor/Sensory: No involuntary movements were observed. Limited due to recent sedation. Coordination: Unable to perform finger to nose. Gait: Not tested due to patient condition. Labs Recent Labs Component Name 02/04/24 0328 01/24/24 0443 07/23/20 0649 01/20/19 1134 CHOL - 229* 254* 258* TRIG 190* 179* 179* 63 HDL - 32* 48 63 LDLCALC - 161* 173* 179* Recent Labs Component Name 02/07/24 0422 02/06/24 1745 02/06/24 0420 01/31/24 1116 01/30/24 0429 01/29/24 0259 01/28/24 0341 SODIUM 135* 136 137 - 139 140 139 POTASSIUM 4.1 4.4 4.8 - 4.1 4.1 4.0 CHLORIDE 105 102 102 - 101 100 102 CO2 23 23 26 - 26 27 26 BUN 37* 36* 34* - 17 15 15 CREATININE 0.96 1.10 1.21 - 0.80 0.74 0.75 GLUCOSE 241* 232* 194* - 146* 135* 126* CALCIUM 9.1 9.7 9.5 - 9.6 9.3 9.3 ALBUMIN - - - - 2.7* 2.7* 2.6* ALKPHOS - - - - 81 90 90 ALT - - - - 9 10 12 AST - - - - 14 14 17 TBIL - - - - 0.2 0.2 0.3 TPROT - - - - 7.8 8.2 7.8 EGFR 88* 74* 66* - >90 >90 >90 - = values in this interval not displayed. Evaluation: CT head 01/22: 1. No acute intracranial hemorrhage. 2. Involutional changes with chronic lacunar infarctions and ischemic microangiopathy. 3. Age indeterminate infarction left thalamus and less likely a sequela of trans-synaptic degeneration. MRI brain if there is concern for acute ischemia. CT head 01/23: No acute intracranial hemorrhage. Stable chronic findings. CT angio: Short segment severe, string-like stenosis of the lower basilar artery just above the vertebral confluence. Cerebral Angiogram Impression 01/23/2024: A severe stenosis in the proximal basilar artery, s/p successful balloon angioplasty. Residual stenosis about 50% in lateral view Echo: ??? Left??Ventricle: Left ventricle size is normal. Mildly to moderately increased wall thickness. Normal systolic function. EF 50-55%. Normal wall motion. Diastolic function is indeterminate. ??? Right??Ventricle: Right ventricle is not well visualized. ??? Aortic??Valve: Mild regurgitation. EKG: Results for orders placed or performed during the hospital encounter of 01/23/24 EKG 12-LEAD Result Value Ref Range Ventricular Rate 96 BPM Atrial Rate 96 BPM P-R Interval 146 ms QRS Duration ms 78 ms Q-T Interval ms 360 ms QTC Calculation (Bezet) 454 ms Calculated P [place] 79 degrees Calculated R [place] 76 degrees Calculated T [place] -77 degrees Interpretation EKG Normal sinus rhythm ST & T wave abnormality, consider inferolateral ischemia Abnormal ECG When compared with ECG of 26-JUL-2022 16:28, Premature ventricular complexes are no longer Present Non-specific change in ST segment in Anterior leads Inverted T waves have replaced nonspecific T wave abnormality in Inferior leads T wave amplitude has increased in Anterior leads Confirmed by JUSTICE PURVIS MD ([id number]) on 01/23/2024 2:35:44 PM Tele: Cardiac Rhythm: Sinus Rhythm;Sinus Tachycardia (02/07/24 0400) LDL: Recent Labs Component Name 01/24/24 0443 07/23/20 0649 01/20/19 1134 LDLCALC 161* 173* 179* HgBA1C: Recent Labs Component Name 01/23/24 1039 09/17/23 1330 10/18/22 1045 HGBA1C 6.1* 6.5 5.9 This patient will benefit from a SGLT-2 or GLP-1, this requires close follow up with PCP or endocrine and lab monitoring. Due to this reason deferred treatment until outpatient follow up. Initial documented NIHSS Score: NIH Total: 13 (01/23/24 1048) Last Documented NIHSS Score: NIH Total: 17 (02/06/241999) Depression Screen Score = Does not meet criteria for screening: Aphasia PHQ-2 PHQ-9 Therapy Recommendations: Discharge Discharge Equipment Recommendations: To Be Determined (01/29/24 1429) OT Discharge Recommendations: Patient would benefit from intensive 3-hour multidisciplinary therapy(02/01/24 1402) This recommendation is made due to ongoing intensive OT functional needs: ability to actively participate in intensive therapy 3 hours/day, 5 days a week;patient has the need for more than one skilled therapy service;motivated to participate in therapy;not at baseline due to impaired ability to complete ADL's;functional mobility is significantly below baseline;likely to return to the community atdischarge with support system;patient and/or caregiver require specialized training;patient demonstrates a significant functional decline and would benefit from skilled therapy intervention to restore function;patient has the ability to progress and demonstrate measurable gains as a result of skilled therapy (02/01/24 1402) PT Discharge Recommendations: Patient would benefit from intensive 3-hour multidisciplinary therapy(02/01/24 1405) This recommendation is made due to ongoing intensive PT functional needs: patient has the ability to progress and demonstrate measurable gains as a result of skilled therapy (02/01/24 1405) Recommended Transportation Method: Stretcher/Ambulance (02/01/24 1408) Modified Merv[place] Score: Preadmission Modified [place] Score: 0 (01/26/24 0936) Current Modified [place] Score: 5 (02/01/24 1405) Procedures: Basilar artery??angioplasty 01/23/2024 PEG 01/30/24 Trach 02/05/2024 IMPRESSION - Acute ischemic stroke: Posterior circulation syndrome - 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 - Statin: Lipitor - VTE prevention with SCDs and Heparin - Allow permissive HTN - Maintain euglycemia, SSI - Keppra 500 mg BID - Nutrition: NPO, PEG for nutrition and medication - PT/OT and speech therapy ongoing. - MVI, w/ thiamine and folic acid. - ICU for medical management. - Repeat CTH today Pricila Harrison, MSN, CORPORATE FINANCIAL ANALYST, AGNP- Interventional Vascular Neurology [facility] [place] Office: [phone] [facility] [id number] * Missy Vazquez NETWORK RELATIONS CONSULTANT - 02/07/2024 9:08 AM CDT Speech Language Pathology: Chart reviewed. Pt continues on mechanical ventilation at this time and is not appropriate for ST/PO. ST will continue to follow and will initiate evaluation as appropriate. Missy Carranza MS, CCC - NETWORK RELATIONS CONSULTANT 02/07/2024 9:09 AM [phone] * Jason Shelby, PharmD - 02/07/2024 8:46 AM CDT [facility] Pharmacy Clinical Services IV-PO Conversion Policy Raza Vazquez is a 63 year old male These criteria have all been met: Patient tolerates other oral or enteral medication's. OR Patient tolerates oral diet or enteral feedings (defined as intake of full liquid diet or better for at least 2 meals without emesis or symptoms of malabsorption) Metronidazole (Flagyl) currently ordered IV will be changed to the oral/enteral formulation. Jason Shelby, Jered 02/07/2024 8:46 AM. * Travis Dubose, RD/LDN - 02/07/2024 8:04 AM CDT CLINICAL NUTRITION Pt discussed in rounds today. Remains on the vent via trach. Levophed is at 0.02 mcg/kg/min. TF is at goal via PEG and tolerating. Increased stooling and FMS was placed yesterday. Output 150 ml 02/05,350 ml since MN. Bowel regimen discussed in rounds. Labs reviewed. Hyponatremic, only has minimal free water flush. Current diet order: NPO Current tube feeding order: Vital 1.2 at 60 ml/hr, water flush per MD / 2 protein additives BID (1728 kcal, 108 g pro, 1168 ml free water / 240 kcal, 60 g pro from additives) MEDICATIONS FOR CURRENT ENCOUNTER: SCHEDULED MEDICATIONS: 0.9% NaCl injection 3 mL, Intracatheter, q8h albuterol-ipratropium (Duo-Neb) nebulizer solution 3 mL, Inhalation, q6h artificial tears ophthalmic ointment, Each Eye, q8h aspirin chew tablet 81 mg, Enteral Tube, QDAY atorvastatin (Lipitor) tablet 80 mg, Enteral Tube, AT BEDTIME cefepime (Maxipime) 2,000 mg in 0.9% NaCl IV 50 mL IVPB, Intravenous, q8h chlorhexidine (Peridex) 0.12 % oral solution 15 mL, Mouth/Throat, BID clopidogrel (plaVIX) tablet 75 mg, Enteral Tube, QDAY famotidine (Pepcid) tablet 20 mg, Enteral Tube, BID folic acid (Folvite) tablet 1 mg, Enteral Tube, QDAY heparin injection 5,000 Units, Subcutaneous, BID insulin aspart (NovoLOG) pen 0-18 Units, Subcutaneous, q6h insulin NPH pen 10 Units, Subcutaneous, q12h levETIRAcetam (Keppra) tablet 500 mg, Enteral Tube, BID metroNIDAZOLE (Flagyl) tablet 500 mg, Enteral Tube, q8h modafinil (Provigil) tablet 200 mg, Enteral Tube, QAM multiple vitamins with minerals tablet 1 tablet, Enteral Tube, QDAY polyethylene glycol 3350 (Miralax) packet 17 g, Enteral Tube, QDAY senna-docusate (Senokot-S) tablet 2 tablet, Enteral Tube, BID sodium chloride 3 % nebulizer solution 3 mL, Inhalation, q6h thiamine (Vitamin B-1) tablet 100 mg, Enteral Tube, QDAY vancomycin (Vancocin) 1,750 mg in 535 mL IVPB, Intravenous, q24h vancomycin (Vancocin) IV dose per pharmacy, Does not apply, DIRECTED [COMPLETED] insulin NPH pen 5 Units, Subcutaneous, Once ?? [COMPLETED] vancomycin (Vancocin) 2,500 mg in 550 mL IVPB, Intravenous, Once Component Name 02/07/24 0422 02/07/24 0036 02/06/24 1745 02/06/24 1113 02/06/24 0420 02/06/24 0000 SODIUM 135* - 136 - 137 - POTASSIUM 4.1 - 4.4 - 4.8 - CHLORIDE 105 - 102 - 102 - CO2 23 - 23 - 26 - BUN 37* - 36* - 34* - CREATININE 0.96 - 1.10 - 1.21 - GLUCOSE 241* - 232* - 194* - CALCIUM 9.1 - 9.7 - 9.5 - PHOS - 3.5 - 3.7 - 3.7 ANIONGAP 7 - 11 - 9 - Blood Sugar Range Past 24 hours: Glucose Bedside (mg/dL) Av.2 mg/dL Min: 173 mg/dL Max: 248 mg/dL Last BM (Date): 02/07/24 Bowel Sounds (All Quadrants): Active (per nursing documentation) Nutrition Issues/Plan: Continue current TF and protein additives. Monitor per nutrition guidelines. [facility] [phone] * Juliet Huertas RCP - 02/07/2024 4:54 AM CDT Mr. Javier continues on mechanical ventilation with settings of Mode APV/CMV: VT 520, RR 14, PEEP5, FiO2 21%. Was unable to wean this shift. Will continue to monitor and wean as tolerable. No SBT this shift per physician. * Melony Ayala RN - 02/07/2024 1:59 AM CDT Problem: Tobacco Use Goal: Inpatient tobacco-use cessation counseling participation Outcome: Progressing Problem: Fall Risk Goal: Patient will remain free of falls Outcome: Progressing Problem: Skin Integrity Goal: Skin integrity is maintained or improved Outcome: Progressing Problem: Neurological Deficit Goal: Neurological status is stable or improving Outcome: Progressing Problem: Oral Intake: Inadequate oral intake Description: related to:: decreased ability to consume or tolerate food and/or fluids due to illness Goal: Enteral/parenteral nutrition prescription will be consistent with estimated needs Description: Raza Cummins's Nutrition Goal: Enteral/Parenteral Nutrition prescription will be consistent with estimated nutrient needs Nutrition Goal Timeframe: Throughout stay Outcome: Progressing Problem: Ineffective breathing pattern related to obstructive sleep apnea Goal: Maintains optimal sleep pattern, as evidenced by relaxed breathing at normal rate and depth. Outcome: Progressing Goal: Adheres to CPAP (Continuous Positive Airway Pressure) device regimen as prescribed. Outcome: Progressing Problem: Sleep deprivation related to sleep apnea. Goal: Achieves restful, refreshing sleep pattern. Outcome: Progressing Problem: Pain/Discomfort Goal: Patient exhibits reduced pain/discomfort as evidenced by pain scores Outcome: Progressing Goal: Patient uses pharmacological and non-pharmacological pain management strategies. Outcome: Progressing Goal: Patient verbalizes acceptable level of pain relief and ability to engage in desired activity. Outcome: Progressing Problem: Potential for Urinary Catheter-Associated Infection Goal: Signs and Symptoms of urinary catheter-associated infection are avoided Outcome: Progressing Problem: General Goal: STG-Patient will Description: Tolerate sitting EOB for approx. 5 minutes w/ SBA to prepare for ADLs Outcome: Progressing Goal: STG-Patient will Description: Complete 1-2 seated ADL tasks w/ min assist Outcome: Progressing Problem: Communication/Dysarthria Goal: STG - Patient will utilize gestures to indicate basic wants/needs Outcome: Progressing Goal: STG - Patient will respond to yes/no questions Outcome: Progressing Problem: Swallowing Goal: LTG - Patient will tolerate the least restrictive diet consistency to allow for safe consumption of daily meals Outcome: Progressing Goal: STG - Patient will participate in instrumental assessment of swallowing as appropriate Outcome: Progressing Problem: Balance Goal: LTG - Patient will maintain balance to allow for safe mobility Description: With stand by assist for transfers, independence with bed mobility Outcome: Progressing Problem: Mobility Goal: LTG - Patient will ambulate household distance Outcome: Progressing Problem: Transfers Goal: LTG - Patient will transfer from one surface to another Description: With standby assist to min A for bed to chair Outcome: Progressing Problem: Hemodynamic Status/Cardiac Output Goal: Patient has stable vital signs and fluid balance Outcome: Progressing * Sejal Bautista RCP - 02/06/2024 5:34 PM CDT Mr Vazquez continues on mechanical ventilation with settings of Mode APV/CMV, PC/VT 520 RR 14, PEEP 5, FiO2 21%. * Kel Jacome MD - 02/06/2024 3:38 PM CDT ICU Progress Note Subjective: Events: Patient continues to have secretions, mental status remains inconsistent Symptoms: Patient unable to communicate symptoms, but does not appear to be in any distress. Subjective: Filed Vitals: 02/06/24 1400 02/06/24 1415 02/06/24 1430 02/06/24 1445 BP: 154/77 150/86 Pulse: 95 94 96 92 Resp: 17 18 17 25 Temp: TempSrc: SpO2: 94% 95% 96% 95% Weight: Height: Artificial airway None Physical Exam: GENERAL APPEARANCE: Acutely ill appearing intubated EYE: pupils equal and reactive, extraocular eye movements intact HEENT: NCAT, MMM copious oral secretions NECK: Supple RESP: coarse to auscultation bilaterally. Referred vent sounds. CARDIO: Regular rate, rhythm without murmur. GI/AB: soft, nttp, normoactive bowel sounds SKIN: Normal to inspection. Warm, dry, supple, with no changes in moles or sores that will not heal. NEUROMUSC: withdraws to painful stimuli, does not follow commands, limited exam Output by Drain (mL) 02/04/24 0701 - 02/04/24 1900 02/04/24 1901 - 02/05/24 0700 02/05/24 0701 - 02/05/24 1900 02/05/24 190 - 02/06/24 0700 02/06/24 0701 - 02/06/24 1542 Requested LDAs do not have output data documented. Peripheral IV Distal;Left;Posterior Forearm (Active) Placement Date/Time: 02/02/24 1132 Size (Gauge): 20 G Orientation: Distal;Left;Posterior Location: Forearm Insertion attempts (FOR ED ONLY): 1 Number of days: 4 Fecal Drainage Device With balloon (Active) Placement Date/Time: 02/06/24 1316 Person who placed: ZACHARY Christine Fecal Incontinence Device: With balloon Number of days: 0 Enteral - Percutaneous Endoscopic Gastrostomy Abdomen;Midline;Upper (Active) Placement Date/Time: 01/30/24 1514 Placed by: Dr. Ruffin Type: Percutaneous Endoscopic Gastrostomy Tube Location: Abdomen;Midline;Upper Size (FR): 20 Lot Number: [id number] Procedure Tolerance: Sedated Number of days: 7 Trach Bivona (Active) Placement Date/Time: 02/05/24 0800 Person who placed: robbin Brand: Bivona Airway Device: Cuffed Cuff Type: Water (Bivona) Trach size: 8 MM Number of days: 1 Central Line (Non-Tunneled) Internal Jugular Triple (Active) Placement Date/Time: 02/02/24 1645 Placed by: Dr. Jacome Central Line Checklist utilized: Yes Orientation: Left Location: Internal Jugular Lumens: Triple Number of days: 3 Indwelling Transurethral Urinary Catheter (Active) Placement Date/Time: 02/03/24 1504 Inserted by ?: No Size (FR): 16 Urinary Catheter Type: Latex Catheter Balloon Size: 10 mL Closed System Maintained This Shift: Yes, Seal Intact Number of attempts: 1 Number of days: 3 Laboratory Results Reviewed Radiology Reviewed Assessment: Hospital Day: 14 Raza Vazquez is a 63 yom with histdory of CAD s/p CABG, obesity, HTN, HLD, DM II who presented to the ICU after an acute ischemic stroke. Timeline 01/22: Presented to ED after being found down. MRI with brainstem infarcts. 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 Transferred to ICU. 01/23: Sedation weaned. Following simple commands 01/24: Extubated 01/26: Worsening encephalopathy. cEEG initiated. Started on keppra. 01/27: EEG read normal 01/28: Transferred from ICU level of care to stroke service 01/29: PEG placed by GI 01/30: OOB to chair 02/01: Worsening mental status, not clearing secretions. ICU re-consulted. Intubated. 02/02: cont on vent support 02/03: consent obtained for trach. Cont TF and sedation. 02/04: tracheostomy Plan: Respiratory: Acute hypoxic respiratory failure due to aspirations and acute ischemic stroke with poor secretion clearance - Continue ventilator support - Lung protective ventilation with goal 6-8 cc/kg IBW - Maintain Drive pressure < 15, SaO2 > 90, HOB > 30 degrees, Plateau pressure < 30 cm H20 - Wean PEEP and FiO2 as tolerated - Continue duonebs and hypertonic nebs - atropine drops for oral secretions -- Tracheostomy placed this AM (02/04) -- will wean vent resume SBT with goal trach collar once sedation off Aspiration PNA - Completed 5 days of empiric ceftriaxone 01/27 - Sputum gram stain with GPCs, MRSA swab negative. -patient's mental status remains poor, febrile overnight to 102. Starting cefepime, vancomycin and metronidazole. Cultures requested. Cardiovascular: Permissive Hypertension - SBP goal 120-180 - d/c losartan and amlodipine given pressor support - start on NE post intubation for hypotension - suspect sedation related vaso plegia. - cont to wean and resume BP meds as able CAD - S/p CABG - On aspirin, atorvastatin and clopidogrel Neuro: Pain/Sedation - started fentanyl gtt in preparation for trach - propofol continued - RASS goal adjust to -5 x 6hr -- wean off sedation 6 hours after trach and start SAT Acute Ischemic Stroke - 2/2 proximal basilar artery stenosis - s/p angioplasty, unable to stent, c/b dissection of right distal vertebral artery - Completed aggrastat - Continue aspirin, atorvastatin and plavix. - Continue provigil for alertness Seizures - Continue levetiracetam Delirium prophylaxis: - Encourage normal sleep-wake cycle: lights on during the day, frequent re- orientation, sleep hygiene, minimize sleep interruptions. - Avoid sedating medications like benzos and antipsychotics, as much as possible. - PT/OT with early mobility as appropriate ID: Worsening leukocytosis - Continue to monitor WBC and fever curve. Renal: BOLA - improving Hyponatremia, hyperphosphatemia - cont trending labs - Strict Is and Os GI/Diet: Malnutrition Diagnosis Severe Protein Calorie malnutrition in context of acute disease or injury was present on admission.Diagnosis is made in consultation with clinical nutrition who have implemented a care plan. - resumed TFs - Continue to supplement with thiamine, folic acid and MVI. Endo: DM II - Continue SSI Q 6 - resume NPH 10 u q12hr Heme: DVT ppx - SQ heparin Prognosis: Guarded Family updates: family updated 02/03. No family present to update at this time. Will update as able. Code Status: Full Code Disposition: Case management planning LTAC transfer. I personally spent 45 minutes providing critical care services, time was exclusive to this patient and dose not include time spent on teaching or in procedures. Kel Jacome MD 02/06/24 3:42 PM Critical Care Medicine * Sloane Caballero OT - 02/06/2024 1:22 PM CDT Therapy orders acknowledged. Care coordinated with RN who reports not appropriate for therapy this date due to poor arousal / inconsistent command following / ability to participate with therapies. Will continue to follow and see when able. SHELLY Anton/L [phone] * Annamarie Bonilla RN - 02/06/2024 11:47 AM CDT Care Coordination Progress Note This [employer] Salesperson received a PC from Diane Mckee (Sister), regarding the next LOC, I discussed LTAC and explained this is a stepping stone, it was not a facility he would live at. CM met with Dr Jacome and discussed the patient's the POC, ICU LOS and anticipated DC needs. Anticipated level of care at discharge: Intermediate Acute Care (LTAC) Anticipated level of care provider: [facility] JOSSY LTRAYMOND-[facility] ODELL SCHULTE Anticipated Discharge Date: 02/12/24 Transportation at Discharge: other (TBD) Portions of this note have been copied from the medical record, but edited appropriately to accurately reflect the patient's current clinical state. Annamarie Bonilla RN Case Management - ICU [address] [facility] Ascom: [phone] O: [id number] * Christos Montgomery, Tip Bander - 02/06/2024 11:03 AM CDT VANCOMYCIN MONITORING Indication: Empiric with Goal Level: 15-20 mcg/ml Vancomycin Administrations from DEC (last 72 hours) None Recent Labs Component Name 02/06/24 0420 02/05/24 1732 02/05/24 0331 02/04/24 1632 02/04/24 0328 CREATININE 1.21 1.27* 1.32* - - BUN 34* 35* 36* - - WBC 14.4* - 14.4* - 16.4* - = values in this interval not displayed. Vancomycin Dosing/Modification History: Date Current Dose / Frequency Level result (mcg/mL) Level Type Level Drawn (date/time) Time from last dose (hrs) # of doses given since last dosing change 02/05 2500 mg LD -- -- -- -- -- 02/05 1750 mg q24h -- -- -- -- -- Previous vanc dosing history?: No Allergies: Lisinopril and Penicillin Vancomycin target level: 15-20 mcg/ml and physician requested a loading dose. CrCl:Estimated Creatinine Clearance: 87.9 mL/min (by C-G formula based on SCr of 1.21 mg/dL). (using Cockcroft-Gault formula) Plan Loading dose: 2500mg (25mg/kg ABW) x 1 Maintenance dose: 1750mg (15mg/kg ABW) interval: every 24 hours (per age/est. GFR). Scheduled every24 hours due to recent BOLA. Plan to obtain an initial vancomycin trough level in 2 days (before the 3rd dose). Plan for next level: Date/time: 02/07 @ 1130 Type: [x]Trough ; [] Random ; [] Peak Ordered?: [x] Yes ; [] No Christos Montgomery, Student Sequencing Machine Operator * Sherie Beltre MD - 02/06/2024 9:49 AM CDT INTERVENTIONAL STROKE NEUROLOGY PROGRESS NOTE Hospital Day: 14 A 63 year old male was admitted with PMH of DM, HTN, alcohol abuse who presented on 01/23/2024 10:27AM with chief complaint of unresponsiveness. He was found down at his home by the recharger person he had scheduled to visit his home today. His last known well was not clear. I spoke with his sister who said they had not seen or spoken to him in the last 24 hrs. He was able to follow some command upon arrival to the hospital but had a hard time moving his lower limbs. Suspicion of posterior circulation stroke was entertained. MRI brain stat was quickly obtained showing multiple infarcts in the brainstem including the left midbrain and left thalamus and right periventricular region. 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 Decision to take to IVRfor exploration and potential management. He was intubated in the ER for airway protection. CTH stable. Family reports L pupil has been larger for 2+months. Extubated 01/24. Reported seizure activity on 01/26, started on Keppra. No further seizure since. PEG placed for neurogenic dysphagia, TF restarted. intubated and sedated on 02/01 due to respiratory failure. 02/06/2024: Patient seen laying in bed, trach in place, intermittently following commands with repeated stimulation and delay in response. Weaned off all sedation around midnight, continue to monitor. MEDICATIONS FOR CURRENT ENCOUNTER: SCHEDULED MEDICATIONS: 0.9% NaCl injection 3 mL, Intracatheter, q8h albuterol-ipratropium (Duo-Neb) nebulizer solution 3 mL, Inhalation, q6h artificial tears ophthalmic ointment, Each Eye, q8h aspirin chew tablet 81 mg, Enteral Tube, QDAY atorvastatin (Lipitor) tablet 80 mg, Enteral Tube, AT BEDTIME cefepime (Maxipime) 2,000 mg in 0.9% NaCl IV 50 mL IVPB, Intravenous, q8h chlorhexidine (Peridex) 0.12 % oral solution 15 mL, Mouth/Throat, BID clopidogrel (plaVIX) tablet 75 mg, Enteral Tube, QDAY famotidine (Pepcid) tablet 20 mg, Enteral Tube, BID folic acid (Folvite) tablet 1 mg, Enteral Tube, QDAY heparin injection 5,000 Units, Subcutaneous, BID insulin aspart (NovoLOG) pen 0-18 Units, Subcutaneous, q6h insulin NPH pen 10 Units, Subcutaneous, q12h insulin NPH pen 5 Units, Subcutaneous, Once levETIRAcetam (Keppra) tablet 500 mg, Enteral Tube, BID metroNIDAZOLE (Flagyl) 500 mg in 100 mL IVPB, Intravenous, q8h modafinil (Provigil) tablet 200 mg, Enteral Tube, QAM multiple vitamins with minerals tablet 1 tablet, Enteral Tube, QDAY polyethylene glycol 3350 (Miralax) packet 17 g, Enteral Tube, QDAY senna-docusate (Senokot-S) tablet 2 tablet, Enteral Tube, BID sodium chloride 3 % nebulizer solution 3 mL, Inhalation, q6h thiamine (Vitamin B-1) tablet 100 mg, Enteral Tube, QDAY vancomycin (Vancocin) 2,500 mg in 550 mL IVPB, Intravenous, Once vancomycin (Vancocin) IV dose per pharmacy, Does not apply, DIRECTED ??? [START ON 02/07/2024] vancomycin (Vancocin) 1,750 mg in 535 mL IVPB, Intravenous, q24h ??? CONTINUOUS MEDICATIONS: PRN MEDICATIONS: Or Or 0.9% NaCl injection 1-10 mL, Intracatheter, PRN acetaminophen (Tylenol) tablet 650 mg, Enteral Tube, q4h PRN atropine 1 % ophthalmic solution 2 drop, Sublingual, q6h PRN dextrose 10 % IV bolus, Intravenous, PRN dextrose 10 % IV bolus, Intravenous, PRN glucagon (Glucagen) injection 1 mg, Subcutaneous, PRN hydrALAZINE (Apresoline) injection 10 mg, Intravenous, q1h PRN ondansetron (Zofran) injection 4 mg, Intravenous, q4h PRN ??? prochlorperazine (Compazine) injection 10 mg, Intravenous, q4h PRN Peripheral IV Distal;Left;Posterior Forearm (Active) Placement Date/Time: 02/02/24 1132 Size (Gauge): 20 G Orientation: Distal;Left;Posterior Location: Forearm Insertion attempts (FOR ED ONLY): 1 Number of days: 3 Enteral - Percutaneous Endoscopic Gastrostomy Abdomen;Midline;Upper (Active) Placement Date/Time: 01/30/24 1514 Placed by: Dr. Ruffin Type: Percutaneous Endoscopic Gastrostomy Tube Location: Abdomen;Midline;Upper Size (FR): 20 Lot Number: [id number] Procedure Tolerance: Sedated Number of days: 6 Trach Bivona (Active) Placement Date/Time: 02/05/24 0800 Person who placed: robbin Brand: Bivona Airway Device: Cuffed Cuff Type: Water (Bivona) Trach size: 8 MM Number of days: 1 Central Line (Non-Tunneled) Internal Jugular Triple (Active) Placement Date/Time: 02/02/24 1645 Placed by: Dr. Jacome Central Line Checklist utilized: Yes Orientation: Left Location: Internal Jugular Lumens: Triple Number of days: 3 Indwelling Transurethral Urinary Catheter (Active) Placement Date/Time: 02/03/24 1504 Inserted by ?: No Size (FR): 16 Urinary Catheter Type: Latex Catheter Balloon Size: 10 mL Closed System Maintained This Shift: Yes, Seal Intact Number of attempts: 1 Number of days: 2 BP 160/95 Pulse 96 Temp 99.9 ??F (37.7 ??C) (Axillary) Resp 19 Ht 1.93 m (6' 4 ) Wt 125 kg (275 lb 9.2 oz) SpO2 95% Wt Readings from Last 3 Encounters: 02/06/24 125 kg (275 lb 9.2 oz) 09/17/23 (!) 148.6 kg (327 lb 9.6 oz) 05/07/23 (!) 145.2 kg (320 lb) Multisystem Examination: Neck: Limited due to Trach Respiratory: No respiratory distress. Cardiovascular: Normal heart rate, Normal rhythm. GI: Soft, No tenderness Integument: Warm, Dry Pupillometry Initial: NPI Left: 0 (01/23/24 1700) NPI Right: 4.1 (01/23/24 170) Pupil Size Left (MM): 4.9 (01/23/24 170) Pupil Size Right (MM): 2.38 (01/23/241699) Current: NPI Left: 0.9 (02/02/24399) NPI Right: 4.5 (02/02/24399) Pupil Size Left (MM): 4.97 (02/02/24399) Pupil Size Right (MM): 2.87 (02/02/24399) Neurological Examination: The patient is trached, off sedation, drowsy appearing. Speech is absent due to trach. L Pupils as above, not responding to threat. Following simple commands to LLE intermittently. Motor/Sensory: No involuntary movements were observed. Limited due to recent sedation. Coordination: Unable to perform finger to nose. Gait: Not tested due to patient condition. Labs Recent Labs Component Name 02/04/24 0328 01/24/24 0443 07/23/20 0649 01/20/19 1134 CHOL - 229* 254* 258* TRIG 190* 179* 179* 63 HDL - 32* 48 63 LDLCALC - 161* 173* 179* Recent Labs Component Name 02/06/24 0420 02/05/24 1732 02/05/24 0331 01/31/24 1116 01/30/24 0429 01/29/24 0259 01/28/24 0341 SODIUM 137 137 136 - 139 140 139 POTASSIUM 4.8 5.0 4.5 - 4.1 4.1 4.0 CHLORIDE 102 101 102 - 101 100 102 CO2 26 22 26 - 26 27 26 BUN 34* 35* 36* - 17 15 15 CREATININE 1.21 1.27* 1.32* - 0.80 0.74 0.75 GLUCOSE 194* 197* 171* - 146* 135* 126* CALCIUM 9.5 9.4 9.4 - 9.6 9.3 9.3 ALBUMIN - - - - 2.7* 2.7* 2.6* ALKPHOS - - - - 81 90 90 ALT - - - - 9 10 12 AST - - - - 14 14 17 TBIL - - - - 0.2 0.2 0.3 TPROT - - - - 7.8 8.2 7.8 EGFR 66* 63* 60* - >90 >90 >90 - = values in this interval not displayed. Evaluation: CT head 01/22: 1. No acute intracranial hemorrhage. 2. Involutional changes with chronic lacunar infarctions and ischemic microangiopathy. 3. Age indeterminate infarction left thalamus and less likely a sequela of trans-synaptic degeneration. MRI brain if there is concern for acute ischemia. CT head 01/23: No acute intracranial hemorrhage. Stable chronic findings. CT angio: Short segment severe, string-like stenosis of the lower basilar artery just above the vertebral confluence. Cerebral Angiogram Impression 01/23/2024: A severe stenosis in the proximal basilar artery, s/p successful balloon angioplasty. Residual stenosis about 50% in lateral view Echo: ??? Left??Ventricle: Left ventricle size is normal. Mildly to moderately increased wall thickness. Normal systolic function. EF 50-55%. Normal wall motion. Diastolic function is indeterminate. ??? Right??Ventricle: Right ventricle is not well visualized. ??? Aortic??Valve: Mild regurgitation. EKG: Results for orders placed or performed during the hospital encounter of 01/23/24 EKG 12-LEAD Result Value Ref Range Ventricular Rate 96 BPM Atrial Rate 96 BPM P-R Interval 146 ms QRS Duration ms 78 ms Q-T Interval ms 360 ms QTC Calculation (Bezet) 454 ms Calculated P [place] 79 degrees Calculated R [place] 76 degrees Calculated T [place] -77 degrees Interpretation EKG Normal sinus rhythm ST & T wave abnormality, consider inferolateral ischemia Abnormal ECG When compared with ECG of 26-JUL-2022 16:28, Premature ventricular complexes are no longer Present Non-specific change in ST segment in Anterior leads Inverted T waves have replaced nonspecific T wave abnormality in Inferior leads T wave amplitude has increased in Anterior leads Confirmed by JUSTICE PURVIS MD ([id number]) on 01/23/2024 2:35:44 PM Tele: Cardiac Rhythm: Sinus Rhythm (02/06/24 0807) LDL: Recent Labs Component Name 01/24/24 0443 07/23/20 0649 01/20/19 1134 LDLCALC 161* 173* 179* HgBA1C: Recent Labs Component Name 01/23/24 1039 09/17/23 1330 10/18/22 1045 HGBA1C 6.1* 6.5 5.9 This patient will benefit from a SGLT-2 or GLP-1, this requires close follow up with PCP or endocrine and lab monitoring. Due to this reason deferred treatment until outpatient follow up. Initial documented NIHSS Score: NIH Total: 13 (01/23/24 1048) Last Documented NIHSS Score: NIH Total: 19 (02/06/24 0807) Depression Screen Score = Does not meet criteria for screening: Aphasia PHQ-2 PHQ-9 Therapy Recommendations: Discharge Discharge Equipment Recommendations: To Be Determined (01/29/24 1421) OT Discharge Recommendations: Patient would benefit from intensive 3-hour multidisciplinary therapy(02/01/24 1402) This recommendation is made due to ongoing intensive OT functional needs: ability to actively participate in intensive therapy 3 hours/day, 5 days a week;patient has the need for more than one skilled therapy service;motivated to participate in therapy;not at baseline due to impaired ability to complete ADL's;functional mobility is significantly below baseline;likely to return to the community atdischarge with support system;patient and/or caregiver require specialized training;patient demonstrates a significant functional decline and would benefit from skilled therapy intervention to restore function;patient has the ability to progress and demonstrate measurable gains as a result of skilled therapy (02/01/24 1402) PT Discharge Recommendations: Patient would benefit from intensive 3-hour multidisciplinary therapy(02/01/24 140) This recommendation is made due to ongoing intensive PT functional needs: patient has the ability to progress and demonstrate measurable gains as a result of skilled therapy (02/01/24 140) Recommended Transportation Method: Stretcher/Ambulance (02/01/24 140) Modified Mervin Score: Preadmission Modified [place] Score: 0 (01/26/24 0936) Current Modified [place] Score: 5 (02/01/24 140) Procedures: Basilar artery??angioplasty 01/23/2024 PEG 01/30/24 Trach 02/05/2024 IMPRESSION - Acute ischemic stroke: Posterior circulation syndrome - 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 - Statin: Lipitor - VTE prevention with SCDs and Heparin - Allow permissive HTN - Maintain euglycemia, SSI - Keppra 500 mg BID - Nutrition: NPO, PEG for nutrition and medication - PT/OT and speech therapy ongoing. - MVI, w/ thiamine and folic acid. - ICU for medical management. Pricila Harrison, MSN, CORPORATE FINANCIAL ANALYST, AGNP- Interventional Vascular Neurology [facility] Office: [phone] ASCOM 5411 ATTESTATION I have seen and examined the patient with the nurse practitioner. I have re- confirmed the paula elements of the history and performed an examination. I have discussed the patient's care with the nurse practitioner. Pt has Trach in place. He is continuing to remain obtunded and waxing and waning in mentation. We will continue to monitor for improvement. Continue to avoid sedating medications. Repeat neuro exam in the AM, if remains obtunded despite more than 72hrs of sedation, will obtain a repeat CT head for follow up 02/06/2024 Sherie Beltre MD Interventional Vascular Neurology [facility] * Travis Dubose, RD/LDN - 02/06/2024 9:18 AM CDT CLINICAL NUTRITION Pt discussed in rounds today. Pt remains on the vent via trach. Propofol is off. Tolerating TF via PEG. Labs reviewed. Phos is now normal, BUN/Cr continue to come down. Will increase TF rate to 60 ml/hr as he is off propofol. Current diet order: NPO Current tube feeding order: Vital 1.2 at 40 ml/hr, water flush per MD / 2 protein additives BID (1152 kcal, 72 g pro, 106 g CHO, 778 ml free water / 240 kcal, 60 g pro from additives) MEDICATIONS FOR CURRENT ENCOUNTER: ?? SCHEDULED MEDICATIONS: ?? 0.9% NaCl injection 3 mL, Intracatheter, q8h ?? albuterol-ipratropium (Duo-Neb) nebulizer solution 3 mL, Inhalation, q6h ?? artificial tears ophthalmic ointment, Each Eye, q8h ?? aspirin chew tablet 81 mg, Enteral Tube, QDAY ?? atorvastatin (Lipitor) tablet 80 mg, Enteral Tube, AT BEDTIME ?? chlorhexidine (Peridex) 0.12 % oral solution 15 mL, Mouth/Throat, BID ?? clopidogrel (plaVIX) tablet 75 mg, Enteral Tube, QDAY ?? famotidine (Pepcid) tablet 20 mg, Enteral Tube, BID ?? folic acid (Folvite) tablet 1 mg, Enteral Tube, QDAY ?? heparin injection 5,000 Units, Subcutaneous, BID ?? insulin aspart (NovoLOG) pen 0-18 Units, Subcutaneous, q6h ?? insulin NPH pen 5 Units, Subcutaneous, q12h ?? levETIRAcetam (Keppra) tablet 500 mg, Enteral Tube, BID ?? modafinil (Provigil) tablet 200 mg, Enteral Tube, QAM ?? multiple vitamins with minerals tablet 1 tablet, Enteral Tube, QDAY ?? polyethylene glycol 3350 (Miralax) packet 17 g, Enteral Tube, QDAY ?? senna-docusate (Senokot-S) tablet 2 tablet, Enteral Tube, BID ?? sodium chloride 3 % nebulizer solution 3 mL, Inhalation, q6h ?? thiamine (Vitamin B-1) tablet 100 mg, Enteral Tube, QDAY Component Name 02/06/24 0420 02/06/24 0000 02/05/24 1732 02/05/24 1105 02/05/24 0331 02/04/24 2336 SODIUM 137 - 137 - 136 - NA - - - - - - POTASSIUM 4.8 - 5.0 - 4.5 - CHLORIDE 102 - 101 - 102 - CL - - - - - - CO2 26 - 22 - 26 - BUN 34* - 35* - 36* - CREATININE 1.21 - 1.27* - 1.32* - GLUCOSE 194* - 197* - 171* - CALCIUM 9.5 - 9.4 - 9.4 - ALBUMIN - - - - - - ALB - - - - - - PHOS - 3.7 - 5.9* - 4.8* ANIONGAP 9 - 14 - 8 - Blood Sugar Range Past 24 hours: Glucose Bedside (mg/dL) Av.3 mg/dL Min: 184 mg/dL Max: 227 mg/dL Last BM (Date): 02/05/24 Bowel Sounds (All Quadrants): Active (per nursing documentation) Nutrition Issues/Plan: ?? Increase Vital 1.2 to 60 ml/hr, water flush per MD. ?? Continue protein additives. Provides: 1728 kcal, 108 g pro, 1168 ml free water / 240 kcal, 60 g pro from additives. Monitor per nutrition guidelines. ASCOM [id number] * Juliet Huertas RCP - 02/06/2024 5:41 AM CDT Mr. Vazquez continues on mechanical ventilation with settings of Mode APV/CMV: VT 520, RR 14, PEEP 5, FiO2 21%. Was unable to wean this shift. Will continue to monitor and wean as tolerable. * Melony Ayala RN - 02/06/2024 1:44 AM CDT Problem: Tobacco Use Goal: Inpatient tobacco-use cessation counseling participation Outcome: Progressing Problem: Fall Risk Goal: Patient will remain free of falls Outcome: Progressing Problem: Skin Integrity Goal: Skin integrity is maintained or improved Outcome: Progressing Problem: Neurological Deficit Goal: Neurological status is stable or improving Outcome: Progressing Problem: Oral Intake: Inadequate oral intake Description: related to:: decreased ability to consume or tolerate food and/or fluids due to illness Goal: Enteral/parenteral nutrition prescription will be consistent with estimated needs Description: Raza Francis Nutrition Goal: Enteral/Parenteral Nutrition prescription will be consistent with estimated nutrient needs Nutrition Goal Timeframe: Throughout stay Outcome: Progressing Problem: Ineffective breathing pattern related to obstructive sleep apnea Goal: Maintains optimal sleep pattern, as evidenced by relaxed breathing at normal rate and depth. Outcome: Progressing Goal: Adheres to CPAP (Continuous Positive Airway Pressure) device regimen as prescribed. Outcome: Progressing Problem: Sleep deprivation related to sleep apnea. Goal: Achieves restful, refreshing sleep pattern. Outcome: Progressing Problem: Pain/Discomfort Goal: Patient exhibits reduced pain/discomfort as evidenced by pain scores Outcome: Progressing Goal: Patient uses pharmacological and non-pharmacological pain management strategies. Outcome: Progressing Goal: Patient verbalizes acceptable level of pain relief and ability to engage in desired activity. Outcome: Progressing Problem: Potential for Urinary Catheter-Associated Infection Goal: Signs and Symptoms of urinary catheter-associated infection are avoided Outcome: Progressing Problem: General Goal: STG-Patient will Description: Tolerate sitting EOB for approx. 5 minutes w/ SBA to prepare for ADLs Outcome: Progressing Goal: STG-Patient will Description: Complete 1-2 seated ADL tasks w/ min assist Outcome: Progressing Problem: Communication/Dysarthria Goal: STG - Patient will utilize gestures to indicate basic wants/needs Outcome: Progressing Goal: STG - Patient will respond to yes/no questions Outcome: Progressing Problem: Swallowing Goal: LTG - Patient will tolerate the least restrictive diet consistency to allow for safe consumption of daily meals Outcome: Progressing Goal: STG - Patient will participate in instrumental assessment of swallowing as appropriate Outcome: Progressing Problem: Balance Goal: LTG - Patient will maintain balance to allow for safe mobility Description: With stand by assist for transfers, independence with bed mobility Outcome: Progressing Problem: Mobility Goal: LTG - Patient will ambulate household distance Outcome: Progressing Problem: Transfers Goal: LTG - Patient will transfer from one surface to another Description: With standby assist to min A for bed to chair Outcome: Progressing Problem: Hemodynamic Status/Cardiac Output Goal: Patient has stable vital signs and fluid balance Outcome: Progressing * Sejal Bautista RCP - 02/05/2024 7:09 PM CDT Bedside bronchoscopy procedure initiated with Respiratory therapist assist. Procedure indicated fortrach. Proper consents signed and accounted for or procedure is emergent. All questions and concerns resolved. No complications during procedure. [place] protocol tracer completed. Will continue toassess. * Paulie Delvalle RN - 02/05/2024 3:32 PM CDT . * Paulie Delvalle RN - 02/05/2024 3:29 PM CDT Problem: Fall Risk Goal: Patient will remain free of falls Outcome: Progressing Note: RAZA VAZQUEZ will have no falls this shift effective by frequent rounding and bed alarm when clinically relevant. Problem: Skin Integrity Goal: Skin integrity is maintained or improved Outcome: Progressing Note: RAZA VAZQUEZ will have no worsening or new skin breakdown this shift effective by turning. Turing necessity will be assessed due to patients functional status and Evan score. Problem: Potential for Urinary Catheter-Associated Infection Goal: Signs and Symptoms of urinary catheter-associated infection are avoided Outcome: Progressing Note: RAZA VAZQUEZ will have no signs of CAUTI this shift effective by beltran care, Stat lock usage, and discontinuation when no longer clinically relevant. Problem: Hemodynamic Status/Cardiac Output Goal: Patient has stable vital signs and fluid balance Outcome: Progressing Note: RAZA VAZQUEZ will have vital signs within ordered parameters this shift * Annamarie Bonilla RN - 02/05/2024 11:47 AM CDT Care Coordination Progress Note ?? 02/04: TRACHE PLACED. Portions of this note have been copied from the medical record, but edited appropriately to accurately reflect the patient's current clinical state. Annamarie Bonilla RN Case Management - ICU 3N & 3S [facility] Ascom: [phone] O: [phone] * Sherie Beltre MD - 02/05/2024 10:48 AM CDT INTERVENTIONAL STROKE NEUROLOGY PROGRESS NOTE Hospital Day: 13 A 63 year old male was admitted with H of DM, HTN, alcohol abuse who presented on 01/23/2024 10:27AM with chief complaint of unresponsiveness. He was found down at his home by the recharger person he had scheduled to visit his home today. His last known well was not clear. I spoke with his sister who said they had not seen or spoken to him in the last 24 hrs. He was able to follow some command upon arrival to the hospital but had a hard time moving his lower limbs. Suspicion of posterior circulation stroke was entertained. MRI brain stat was quickly obtained showing multiple infarcts in the brainstem including the left midbrain and left thalamus and right periventricular region. 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 Decision to take to IVRfor exploration and potential management. He was intubated in the ER for airway protection. CTH stable. Family reports L pupil has been larger for 2+months. Extubated 01/24. Reported seizure activity on 01/26, started on Keppra. No further seizure since. PEG placed for neurogenic dysphagia, TF restarted. intubated and sedated on 02/01 due to respiratory failure. 02/05/2024: Patient seen laying in bed, trach placed this AM and sedated still. Wean Propofol as tolerated. Unable to get exam at this time. MEDICATIONS FOR CURRENT ENCOUNTER: SCHEDULED MEDICATIONS: 0.9% NaCl injection 3 mL, Intracatheter, q8h albuterol-ipratropium (Duo-Neb) nebulizer solution 3 mL, Inhalation, q6h artificial tears ophthalmic ointment, Each Eye, q8h aspirin chew tablet 81 mg, Enteral Tube, QDAY atorvastatin (Lipitor) tablet 80 mg, Enteral Tube, AT BEDTIME chlorhexidine (Peridex) 0.12 % oral solution 15 mL, Mouth/Throat, BID clopidogrel (plaVIX) tablet 75 mg, Enteral Tube, QDAY famotidine (Pepcid) tablet 20 mg, Enteral Tube, BID folic acid (Folvite) tablet 1 mg, Enteral Tube, QDAY heparin injection 5,000 Units, Subcutaneous, BID insulin aspart (NovoLOG) pen 0-18 Units, Subcutaneous, q6h insulin NPH pen 5 Units, Subcutaneous, q12h levETIRAcetam (Keppra) tablet 500 mg, Enteral Tube, BID modafinil (Provigil) tablet 200 mg, Enteral Tube, QAM multiple vitamins with minerals tablet 1 tablet, Enteral Tube, QDAY polyethylene glycol 3350 (Miralax) packet 17 g, Enteral Tube, QDAY senna-docusate (Senokot-S) tablet 2 tablet, Enteral Tube, BID sodium chloride 3 % nebulizer solution 3 mL, Inhalation, q6h thiamine (Vitamin B-1) tablet 100 mg, Enteral Tube, QDAY ??? [COMPLETED] rocuronium (Zemuron) injection 100 mg, Intravenous, Once CONTINUOUS MEDICATIONS: ??? propofol (Diprivan) infusion, Intravenous, Continuous PRN MEDICATIONS: Or Or 0.9% NaCl injection 1-10 mL, Intracatheter, PRN acetaminophen (Tylenol) tablet 650 mg, Enteral Tube, q4h PRN atropine 1 % ophthalmic solution 2 drop, Sublingual, q6h PRN dextrose 10 % IV bolus, Intravenous, PRN dextrose 10 % IV bolus, Intravenous, PRN fentaNYL (Sublimaze) bolus from infusion bag 50 mcg, Intravenous, BOLUS FROM BAG PRN glucagon (Glucagen) injection 1 mg, Subcutaneous, PRN hydrALAZINE (Apresoline) injection 10 mg, Intravenous, q1h PRN ondansetron (Zofran) injection 4 mg, Intravenous, q4h PRN ??? prochlorperazine (Compazine) injection 10 mg, Intravenous, q4h PRN Peripheral IV Distal;Left;Posterior Forearm (Active) Placement Date/Time: 02/02/24 1132 Size (Gauge): 20 G Orientation: Distal;Left;Posterior Location:Forearm Insertion attempts (FOR ED ONLY): 1 Number of days: 3 Peripheral IV Distal;Posterior;Right Forearm (Active) Placement Date/Time: 02/02/24 1525 Size (Gauge): 18 G Orientation: Distal;Posterior;Right Location:Forearm Insertion attempts (FOR ED ONLY): 1 Number of days: 2 Enteral - Percutaneous Endoscopic Gastrostomy Abdomen;Midline;Upper (Active) Placement Date/Time: 01/30/24 1514 Placed by: Dr. Ruffin Type: Percutaneous Endoscopic Gastrostomy Tube Location: Abdomen;Midline;Upper Size (FR): 20 Lot Number: [id number] Procedure Tolerance: Sedated Number of days: 5 Trach Bivona (Active) Placement Date/Time: 02/05/24 0800 Person who placed: robbin Brand: Bivona Airway Device: Cuffed Cuff Type: Water (Bivona) Trach size: 8 MM Number of days: 0 Central Line (Non-Tunneled) Internal Jugular Triple (Active) Placement Date/Time: 02/02/24 1645 Placed by: Dr. Jacome Central Line Checklist utilized: Yes Orientation: Left Location: Internal Jugular Lumens: Triple Number of days: 2 Indwelling Transurethral Urinary Catheter (Active) Placement Date/Time: 02/03/24 1504 Inserted by ?: No Size (FR): 16 Urinary Catheter Type: Latex Catheter Balloon Size: 10 mL Closed System Maintained This Shift: Yes, Seal Intact Number of attempts: 1 Number of days: 1 BP 158/92 Pulse 88 Temp 98.6 ??F (37 ??C) (Oral) Resp 22 Ht 1.93 m (6' 4 ) Wt 129.1 kg (284 lb 9.6 oz) SpO2 94% Wt Readings from Last 3 Encounters: 02/05/24 129.1 kg (284 lb 9.6 oz) 09/17/23 (!) 148.6 kg (327 lb 9.6 oz) 05/07/23 (!) 145.2 kg (320 lb) Multisystem Examination: Neck: Limited due to ET tube. Respiratory: No respiratory distress. Cardiovascular: Normal heart rate, Normal rhythm. GI: Soft, No tenderness Integument: Warm, Dry Pupillometry Initial: NPI Left: 0 (01/23/24 1700) NPI Right: 4.1 (01/23/24 1700) Pupil Size Left (MM): 4.9 (01/23/24 1700) Pupil Size Right (MM): 2.38 (01/23/24 1700) Current: NPI Left: 0.9 (02/02/24 0400) NPI Right: 4.5 (02/02/24 0400) Pupil Size Left (MM): 4.97 (02/02/24 0400) Pupil Size Right (MM): 2.87 (02/02/24 0400) Neurological Examination: (unable to get exam 02/04 d/t recent trach) The patient is intubated and sedated. Speech is absent due to ET tube. L Pupils as above, not responding to threat. Following simple commands to LUE intermittently. Motor/Sensory: No involuntary movements were observed. Limited due to sedation. Coordination: Unable to perform finger to nose. Gait: Not tested due to patient condition. Labs Recent Labs Component Name 02/04/24 0328 01/24/24 0443 07/23/20 0649 01/20/19 1134 CHOL - 229* 254* 258* TRIG 190* 179* 179* 63 HDL - 32* 48 63 LDLCALC - 161* 173* 179* Recent Labs Component Name 02/05/24 0331 02/04/24 1632 02/03/24 2334 01/31/24 1116 01/30/24 0429 01/29/24 0259 01/28/24 0341 SODIUM 136 134* 135* - 139 140 139 POTASSIUM 4.5 4.7 4.4 - 4.1 4.1 4.0 CHLORIDE 102 101 100 - 101 100 102 CO2 26 25 27 - 26 27 26 BUN 36* 33* 40* - 17 15 15 CREATININE 1.32* 1.32* 1.43* - 0.80 0.74 0.75 GLUCOSE 171* 178* 220* - 146* 135* 126* CALCIUM 9.4 9.3 9.3 - 9.6 9.3 9.3 ALBUMIN - - - - 2.7* 2.7* 2.6* ALKPHOS - - - - 81 90 90 ALT - - - - 9 10 12 AST - - - - 14 14 17 TBIL - - - - 0.2 0.2 0.3 TPROT - - - - 7.8 8.2 7.8 EGFR 60* 60* 54* - >90 >90 >90 - = values in this interval not displayed. Evaluation: CT head 01/22: 1. No acute intracranial hemorrhage. 2. Involutional changes with chronic lacunar infarctions and ischemic microangiopathy. 3. Age indeterminate infarction left thalamus and less likely a sequela of trans-synaptic degeneration. MRI brain if there is concern for acute ischemia. CT head 01/23: No acute intracranial hemorrhage. Stable chronic findings. CT angio: Short segment severe, string-like stenosis of the lower basilar artery just above the vertebral confluence. Cerebral Angiogram Impression 01/23/2024: A severe stenosis in the proximal basilar artery, s/p successful balloon angioplasty. Residual stenosis about 50% in lateral view Echo: ??? Left??Ventricle: Left ventricle size is normal. Mildly to moderately increased wall thickness. Normal systolic function. EF 50-55%. Normal wall motion. Diastolic function is indeterminate. ??? Right??Ventricle: Right ventricle is not well visualized. ??? Aortic??Valve: Mild regurgitation. EKG: Results for orders placed or performed during the hospital encounter of 01/23/24 EKG 12-LEAD Result Value Ref Range Ventricular Rate 96 BPM Atrial Rate 96 BPM P-R Interval 146 ms QRS Duration ms 78 ms Q-T Interval ms 360 ms QTC Calculation (Bezet) 454 ms Calculated P [place] 79 degrees Calculated R [place] 76 degrees Calculated T [place] -77 degrees Interpretation EKG Normal sinus rhythm ST & T wave abnormality, consider inferolateral ischemia Abnormal ECG When compared with ECG of 26-JUL-2022 16:28, Premature ventricular complexes are no longer Present Non-specific change in ST segment in Anterior leads Inverted T waves have replaced nonspecific T wave abnormality in Inferior leads T wave amplitude has increased in Anterior leads Confirmed by JUSTICE PURVIS MD ([id number]) on 01/23/2024 2:35:44 PM Tele: Cardiac Rhythm: Sinus Rhythm (02/05/24 1200) LDL: Recent Labs Component Name 01/24/24 0443 07/23/20 0649 01/20/19 1134 LDLCALC 161* 173* 179* HgBA1C: Recent Labs Component Name 01/23/24 1039 09/17/23 1330 10/18/22 1045 HGBA1C 6.1* 6.5 5.9 This patient will benefit from a SGLT-2 or GLP-1, this requires close follow up with PCP or endocrine and lab monitoring. Due to this reason deferred treatment until outpatient follow up. Initial documented NIHSS Score: NIH Total: 13 (01/23/24 1048) Last Documented NIHSS Score: NIH Total: 29 (02/04/241999) Depression Screen Score = Does not meet criteria for screening: Aphasia PHQ-2 PHQ-9 Therapy Recommendations: Discharge Discharge Equipment Recommendations: To Be Determined (01/29/24 1427) OT Discharge Recommendations: Patient would benefit from intensive 3-hour multidisciplinary therapy(02/01/24 1402) This recommendation is made due to ongoing intensive OT functional needs: ability to actively participate in intensive therapy 3 hours/day, 5 days a week;patient has the need for more than one skilled therapy service;motivated to participate in therapy;not at baseline due to impaired ability to complete ADL's;functional mobility is significantly below baseline;likely to return to the community atdischarge with support system;patient and/or caregiver require specialized training;patient demonstrates a significant functional decline and would benefit from skilled therapy intervention to restore function;patient has the ability to progress and demonstrate measurable gains as a result of skilled therapy (02/01/24 1402) PT Discharge Recommendations: Patient would benefit from intensive 3-hour multidisciplinary therapy(02/01/241404) This recommendation is made due to ongoing intensive PT functional needs: patient has the ability to progress and demonstrate measurable gains as a result of skilled therapy (02/01/241404) Recommended Transportation Method: Stretcher/Ambulance (02/01/241404) Modified [place] Score: Preadmission Modified [place] Score: 0 (01/26/24 0936) Current Modified [place] Score: 5 (02/01/241404) Procedures: Basilar artery??angioplasty 01/23/2024 PEG 01/30/24 Trach 02/05/2024 IMPRESSION - Acute ischemic stroke: Posterior circulation syndrome - 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 - Statin: Lipitor - VTE prevention with SCDs and Heparin - Allow permissive HTN - Maintain euglycemia, SSI - Keppra 500 mg BID - Nutrition: NPO, PEG for nutrition and medication - PT/OT and speech therapy ongoing. - MVI, w/ thiamine and folic acid. - ICU for medical management. Trach placed this AM. Pricila Harrison, MSN, CORPORATE FIN[employer]CIAL ANALYST, AGNP- Interventional Vascular Neurology [facility] Office: [phone] ASCOM 9299 ATTESTATION I have seen and examined the patient with the nurse practitioner. I have re- confirmed the paula elements of the history and performed an examination. I have discussed the patient's care with the nurse practitioner. Trached placed. PEG in place. Pt was seen tihis AM just after trach placement so was still sedated and appropriate neurologic exam was not done. He will be weaned off sedation and prepared for placement to LTAC. In the meantime, no changes to current management. 02/05/2024 Sherie Beltre MD Interventional Vascular Neurology [facility] * Sejal Bautista RCP - 02/05/2024 9:06 AM CDT Patient trached at 0800 with 8 Bivona. * Travis Dubose RD/TGN - 02/05/2024 8:09 AM CDT Nutrition Re-Assessment Brief Synopsis: Patient at Nutrition Risk and meets criteria for Severe Protein Calorie malnutrition. Criteria from 01/30. Weight Change: Weight Loss: > or equal to 2% x 1 week Energy Intake: < 50% of estimated energy requirement for > 5 days Fat Loss Identified: none Muscle Loss Identified: mild Nutrition Plan: Resume Vital 1.2 at 40 ml/hr, water flush per MD / 2 protein additives BID. Discharge Needs: Nutritional Supplement at Discharge: N/A (tube feeding) Patient Summary: Pt continues to be followed for nutrition support. Pt had a trach placed this morning. Propofol is at 11.61 ml/hr providing 306 lipid kcal/day. Levophed is off. TF held for trach placement, to resumethis morning per rounds. Labs reviewed. Phos remains elevated but is coming down. Nutrition care plan discussed today during multidisciplinary rounds. Assessment: Med/Surg History and Clinical Diagnoses: Multiple brainstem infarcts, acute respiratory failure, hypotension, poorly controlled DM, alcohol use disorder; Hx: DM2, CAD, CABG 2018, anemia, HLD, obesity Diet order accuracy Current diet order: NPO Nutritional Supplement at Discharge: N/A (tube feeding) Current tube feeding order: Vital 1.2 at 40 ml/hr, water flush per MD / 2 protein additives BID (1152 kcal, 72 g pro, 106 g CHO, 778 ml free water / 240 kcal, 60 g pro from additives) Nutrition recommendation: agree with current nutrition order Food Allergies: No known food allergies P.O.Intake for the past 48 hrs:No data recorded GI Concerns: None ( 02/04) Chewing/Swallowing: Other (Comment) (intubated) Pain affecting intake: No Admission weight: Weight: 136.1 kg (300 lb) (01/23/24 1055) Weight Method : Stated (01/23/24 1055) Patient Vitals for the past 336 hrs: Weight Weight Method 02/05/24 0400 129.1 kg (284 lb 9.6 oz) Bed scale 02/04/24 0212 128.9 kg (284 lb 3.2 oz) Bed scale 02/03/24 0351 129 kg (284 lb 6.3 oz) Bed scale 02/02/24 0400 129 kg (284 lb 6.3 oz) Bed scale 02/01/24 0400 129 kg (284 lb 6.3 oz) Bed scale 01/31/24 0400 130.5 kg (287 lb 11.2 oz) Bed scale 01/30/24 0300 121.5 kg (267 lb 13.7 oz) Bed scale 01/29/24 0400 133 kg (293 lb 3.4 oz) Bed scale 01/28/24 0400 135 kg (297 lb 9.9 oz) Bed scale 01/26/24 0430 133 kg (293 lb 3.4 oz) Bed scale 01/25/24 0243 131 kg (288 lb 12.8 oz) Bed scale 01/24/24 0928 (!) 142.4 kg (314 lb) -- 01/24/24 0400 (!) 142.5 kg (314 lb 2.5 oz) Bed scale 01/23/24 1700 136 kg (299 lb 13.2 oz) Bed scale 01/23/24 1055 136.1 kg (300 lb) Stated BMI: Body mass index is 34.64 kg/m??. BMI Range: Obese Class 1 WT Comments: Reviewed Component Name 02/05/24 0331 02/04/24 2336 02/04/24 1632 02/04/24 1140 02/03/24 2334 01/30/24 0429 01/29/24 0259 01/28/24 0341 SODIUM 136 - 134* - 135* 139 140 139 NA - - - - - - - - POTASSIUM 4.5 - 4.7 - 4.4 4.1 4.1 4.0 CHLORIDE 102 - 101 - 100 101 100 102 CL - - - - - - - - CO2 26 - 25 - 27 26 27 26 BUN 36* - 33* - 40* 17 15 15 CREATININE 1.32* - 1.32* - 1.43* 0.80 0.74 0.75 GLUCOSE 171* - 178* - 220* 146* 135* 126* CALCIUM 9.4 - 9.3 - 9.3 9.6 9.3 9.3 ALBUMIN - - - - - 2.7* 2.7* 2.6* ALB - - - - - - - - PHOS - 4.8* - 5.1* 5.4* 3.7 4.1 4.4 ANIONGAP 8 - 8 - 8 12 13 11 MEDICATIONS FOR CURRENT ENCOUNTER: ?? SCHEDULED MEDICATIONS: ?? 0.9% NaCl injection 3 mL, Intracatheter, q8h ?? albuterol-ipratropium (Duo-Neb) nebulizer solution 3 mL, Inhalation, q6h ?? artificial tears ophthalmic ointment, Each Eye, q8h ?? aspirin chew tablet 81 mg, Enteral Tube, QDAY ?? atorvastatin (Lipitor) tablet 80 mg, Enteral Tube, AT BEDTIME ?? chlorhexidine (Peridex) 0.12 % oral solution 15 mL, Mouth/Throat, BID ?? clopidogrel (plaVIX) tablet 75 mg, Enteral Tube, QDAY ?? famotidine (Pepcid) tablet 20 mg, Enteral Tube, BID ?? folic acid (Folvite) tablet 1 mg, Enteral Tube, QDAY ?? heparin injection 5,000 Units, Subcutaneous, BID ?? insulin aspart (NovoLOG) pen 0-18 Units, Subcutaneous, q6h ?? levETIRAcetam (Keppra) tablet 500 mg, Enteral Tube, BID ?? modafinil (Provigil) tablet 200 mg, Enteral Tube, QAM ?? multiple vitamins with minerals tablet 1 tablet, Enteral Tube, QDAY ?? polyethylene glycol 3350 (Miralax) packet 17 g, Enteral Tube, QDAY ?? senna-docusate (Senokot-S) tablet 2 tablet, Enteral Tube, BID ?? sodium chloride 3 % nebulizer solution 3 mL, Inhalation, q6h ?? thiamine (Vitamin B-1) tablet 100 mg, Enteral Tube, QDAY ?? [COMPLETED] 0.9% NaCl IV bolus, Intravenous, Once ?? [COMPLETED] rocuronium (Zemuron) injection 100 mg, Intravenous, Once ?? CONTINUOUS MEDICATIONS: ?? fentaNYL 2500 mcg/50mL infusion, Intravenous, Continuous ?? propofol (Diprivan) infusion, Intravenous, Continuous Skin/Wound: Exceptions per nursing assessment (swollen) Estimated Energy Needs: KCAL: 5221-2415 kcal/day (11-14 kcal/kg BW) (vent/obesity) Protein (g): 138-184 g pro/day (1.5-2.0 g/kg IBW) (vent/obesity) Fluid (ml): Other (comments) (per MD) Needs based on: Kcal/kg- (Comment) (kcal - 128.9 kg BW 02/03, pro - 91.8 kg IBW) Recommended Access Route: TF Education needed: None Education Provided: Not appropriate Nutrition Care Process (1) Nutrition Diagnostic Statement: Inadequate oral intake related to:: decreased ability to consume or tolerate food and/or fluids due to illness as evidenced by:: --- (NPO) Nutrition Intervention: Enteral nutrition: Monitoring: - Nutrition support. - Weight, labs. Evaluation: Diagnostic Statement #1 Goals: Nutrition Goal: Enteral/Parenteral Nutrition prescription will be consistent with estimated nutrient needs Nutrition Goal Timeframe: Throughout stay Nutrition Goal Progress: Progressing toward goal;Continue with current goal * Travis Dubose RD/HAFSA - 02/05/2024 8:09 AM CDT Problem: Oral Intake: Inadequate oral intake Description: related to:: decreased ability to consume or tolerate food and/or fluids due to illness Goal: Enteral/parenteral nutrition prescription will be consistent with estimated needs Description: Raza Has Nutrition Goal: Enteral/Parenteral Nutrition prescription will be consistent with estimated nutrient needs Nutrition Goal Timeframe: Throughout stay Outcome: Progressing Note: Trach placed this morning. TF resuming via PEG. Continue care plan. * Chuy Siegel DO - 02/05/2024 7:33 AM CDT ICU Progress Note Subjective: Events: Cont copious oral secretions. NPO for trach today Symptoms: Patient unable to communicate symptoms, but does not appear to be in any distress. Subjective: Filed Vitals: 02/05/24 0515 02/05/24 0530 02/05/24 0545 02/05/24 0600 BP: 121/76 123/77 130/79 142/87 Pulse: 88 88 87 82 Resp: 15 16 15 16 Temp: TempSrc: SpO2: 94% 95% 95% 100% Weight: Height: Artificial airway None Physical Exam: GENERAL APPEARANCE: Acutely ill appearing intubated EYE: pupils equal and reactive, extraocular eye movements intact HEENT: NCAT, MMM copious oral secretions NECK: Supple RESP: coarse to auscultation bilaterally. Referred vent sounds. CARDIO: Regular rate, rhythm without murmur. GI/AB: soft, nttp, normoactive bowel sounds SKIN: Normal to inspection. Warm, dry, supple, with no changes in moles or sores that will not heal. NEUROMUSC: follows simple commands, but now sedated Output by Drain (mL) 02/03/24 0701 - 02/03/24 1900 02/03/24 1901 - 02/04/24 0700 02/04/24 0701 - 02/04/24 1900 02/04/24 1901 - 02/05/24 0700 02/05/24 0701 - 02/05/24 0733 Requested LDAs do not have output data documented. Peripheral IV Distal;Left;Posterior Forearm (Active) Placement Date/Time: 02/02/24 1132 Size (Gauge): 20 G Orientation: Distal;Left;Posterior Location: Forearm Insertion attempts (FOR ED ONLY): 1 Number of days: 2 Peripheral IV Distal;Posterior;Right Forearm (Active) Placement Date/Time: 02/02/24 1525 Size (Gauge): 18 G Orientation: Distal;Posterior;Right Location:Forearm Insertion attempts (FOR ED ONLY): 1 Number of days: 2 Enteral - Percutaneous Endoscopic Gastrostomy Abdomen;Midline;Upper (Active) Placement Date/Time: 01/30/24 1514 Placed by: Dr. Ruffin Type: Percutaneous Endoscopic Gastrostomy Tube Location: Abdomen;Midline;Upper Size (FR): 20 Lot Number: [id number] Procedure Tolerance: Sedated Number of days: 5 ETT Endotracheal Tube Cuffed-inflated (Active) Placement Date/Time: 02/02/24 1505 Person who placed: Dr. Jacome Device: Endotracheal Tube Location: Oral Tube Type: Cuffed-inflated Tube size (FR): 8 FR Depth of insertion: 25 CM Measured from: gum Number of insertion attempts: 1 Cuff inflate... Number of days: 2 Central Line (Non-Tunneled) Internal Jugular Triple (Active) Placement Date/Time: 02/02/24 1645 Placed by: Dr. Jacome Central Line Checklist utilized: Yes Orientation: Left Location: Internal Jugular Lumens: Triple Number of days: 2 Indwelling Transurethral Urinary Catheter (Active) Placement Date/Time: 02/03/24 1504 Inserted by ?: No Size (FR): 16 Urinary Catheter Type: Latex Catheter Balloon Size: 10 mL Closed System Maintained This Shift: Yes, Seal Intact Number of attempts: 1 Number of days: 1 Laboratory Results Reviewed Radiology Reviewed Assessment: Hospital Day: 13 Raza Vazquez is a 63 yom with histdory of CAD s/p CABG, obesity, HTN, HLD, DM II who presented to the ICU after an acute ischemic stroke. Timeline 01/22: Presented to ED after being found down. MRI with brainstem infarcts. 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 Transferred to ICU. 01/23: Sedation weaned. Following simple commands 01/24: Extubated 01/26: Worsening encephalopathy. cEEG initiated. Started on keppra. 01/27: EEG read normal 01/28: Transferred from ICU level of care to stroke service 01/29: PEG placed by GI 01/30: OOB to chair 02/01: Worsening mental status, not clearing secretions. ICU re-consulted. Intubated. 02/02: cont on vent support 02/03: consent obtained for trach. Cont TF and sedation. Plan: Respiratory: Acute hypoxic respiratory failure due to aspirations and acute ischemic stroke with poor secretion clearance - Continue ventilator support - Lung protective ventilation with goal 6-8 cc/kg IBW - Maintain Drive pressure < 15, SaO2 > 90, HOB > 30 degrees, Plateau pressure < 30 cm H20 - Wean PEEP and FiO2 as tolerated - Continue duonebs and hypertonic nebs - atropine drops for oral secretions -- Tracheostomy placed this AM (02/04) -- will wean vent resume SBT with goal trach collar once sedation off Aspiration PNA - Completed days of empiric ceftriaxone 01/27 - Sputum gram stain with GPCs, MRSA swab negative. Cardiovascular: Permissive Hypertension - SBP goal 120-180 - d/c losartan and amlodipine given pressor support - start on NE post intubation for hypotension - suspect sedation related vaso plegia. - cont to wean and resume BP meds as able CAD - S/p CABG - On aspirin, atorvastatin and plavix. Neuro: Pain/Sedation - started fentanyl gtt in preparation for trach - propofol continued - RASS goal adjust to -5 x 6hr - PRN versed for trach -- wean off sedation 6 hours after trach and start SAT Acute Ischemic Stroke - 2/2 proximal basilar artery stenosis - s/p angioplasty, unable to stent, c/b dissection of right distal vertebral artery - Completed aggrastat - Continue aspirin, atorvastatin and plavix. - Continue provigil for alertness Seizures - Continue keppra Delirium prophylaxis: - Encourage normal sleep-wake cycle: lights on during the day, frequent re- orientation, sleep hygiene, minimize sleep interruptions. - Avoid sedating medications like benzos and antipsychotics, as much as possible. - PT/OT with early mobility as appropriate ID: Worsening leukocytosis - Continue to monitor WBC and fever curve. Renal: BOLA - improving Hyponatremia, hyperphosphatemia - cont trending labs - Strict Is and Os GI/Diet: Malnutrition Diagnosis Severe Protein Calorie malnutrition in context of acute disease or injury was present on admission.Diagnosis is made in consultation with clinical nutrition who have implemented a care plan. NPO since MN for trach - resume TFs - Continue to supplement with thiamine, folic acid and MVI. Endo: DM II - Continue SSI Q 6 - resume NPH 5 u q12hr Heme: DVT ppx - SQ heparin Prognosis: Guarded Family updates: updated family bedside the evening of 02/03 and his sister was present for MDR. Attempted to call pt daughter, Christi, after trach but no answer. Code Status: Full Code I personally spent 50 minutes providing critical care services, time was exclusive to this patient and dose not include time spent on teaching or in procedures. Chuy Siegel DO 02/05/24 7:33 AM Critical Care Medicine * Sloane Caballero, OT - 02/05/2024 7:20 AM CDT Therapy orders acknowledged. Per discussion with MDs this AM during turbo rounds, pt not appropriate to mobilize with therapy this date as pt will undergo tracheostomy. Will continue to follow and see when able. SHELLY Anton/Boris [phone] * Juliet Huertas RCP - 02/05/2024 5:22 AM CDT Mr. Vazquez continues on mechanical ventilation with settings of Mode APV/CMV: VT 520, RR 14, PEEP 5, FiO2 21%. Was unable to wean this shift. Will continue to monitor and wean as tolerable. No SBT this shift * Jaden Huerta RN - 02/04/2024 10:52 PM CDT Problem: Tobacco Use Goal: Inpatient tobacco-use cessation counseling participation Outcome: Progressing Problem: Fall Risk Goal: Patient will remain free of falls Outcome: Progressing Problem: Skin Integrity Goal: Skin integrity is maintained or improved Outcome: Progressing Problem: Neurological Deficit Goal: Neurological status is stable or improving Outcome: Progressing Problem: Oral Intake: Inadequate oral intake Description: related to:: decreased ability to consume or tolerate food and/or fluids due to illness Goal: Enteral/parenteral nutrition prescription will be consistent with estimated needs Description: Raza Francis Nutrition Goal: Enteral/Parenteral Nutrition prescription will be consistent with estimated nutrient needs Nutrition Goal Timeframe: Throughout stay Outcome: Progressing Problem: Ineffective breathing pattern related to obstructive sleep apnea Goal: Maintains optimal sleep pattern, as evidenced by relaxed breathing at normal rate and depth. Outcome: Progressing Goal: Adheres to CPAP (Continuous Positive Airway Pressure) device regimen as prescribed. Outcome: Progressing Problem: Sleep deprivation related to sleep apnea. Goal: Achieves restful, refreshing sleep pattern. Outcome: Progressing Problem: Pain/Discomfort Goal: Patient exhibits reduced pain/discomfort as evidenced by pain scores Outcome: Progressing Goal: Patient uses pharmacological and non-pharmacological pain management strategies. Outcome: Progressing Goal: Patient verbalizes acceptable level of pain relief and ability to engage in desired activity. Outcome: Progressing Problem: Potential for Urinary Catheter-Associated Infection Goal: Signs and Symptoms of urinary catheter-associated infection are avoided Outcome: Progressing Problem: Hemodynamic Status/Cardiac Output Goal: Patient has stable vital signs and fluid balance Outcome: Progressing * Bianca Emery RN - 02/04/2024 5:04 PM CDT Problem: Fall Risk Goal: Patient will remain free of falls Outcome: Progressing Problem: Skin Integrity Goal: Skin integrity is maintained or improved Outcome: Progressing Problem: Oral Intake: Inadequate oral intake Description: related to:: decreased ability to consume or tolerate food and/or fluids due to illness Goal: Enteral/parenteral nutrition prescription will be consistent with estimated needs Description: Raza Francis Nutrition Goal: Enteral/Parenteral Nutrition prescription will be consistent with estimated nutrient needs Nutrition Goal Timeframe: Throughout stay Outcome: Progressing Problem: Pain/Discomfort Goal: Patient exhibits reduced pain/discomfort as evidenced by pain scores Outcome: Progressing Goal: Patient uses pharmacological and non-pharmacological pain management strategies. Outcome: Progressing Goal: Patient verbalizes acceptable level of pain relief and ability to engage in desired activity. Outcome: Progressing Problem: Potential for Urinary Catheter-Associated Infection Goal: Signs and Symptoms of urinary catheter-associated infection are avoided Outcome: Progressing * Travis Dubose RD/TGN - 02/04/2024 1:47 PM CDT CLINICAL NUTRITION Pt discussed in rounds today. Pt remains intubated. Propofol is at 19.35 ml/hr providing 510 lipid kcal/day. Levophed is off. Tolerating TF. Labs reviewed. Hyperglycemia noted. NPH started per rounds. Renal labs noted, phos trending up but Cr coming down. Adequate UOP per nurse. No signs of refeeding noted. See TF plan below. Current diet order: NPO Current tube feeding order: Osmolite 1.2 at 30 ml/hr, water flush per MD / 1 protein additive daily(864 kcal, 40 g pro, 590 ml free water / 60 kcal, 15 g pro from additive) MEDICATIONS FOR CURRENT ENCOUNTER: SCHEDULED MEDICATIONS: 0.9% NaCl injection 3 mL, Intracatheter, q8h albuterol-ipratropium (Duo-Neb) nebulizer solution 3 mL, Inhalation, q6h artificial tears ophthalmic ointment, Each Eye, q8h aspirin chew tablet 81 mg, Enteral Tube, QDAY atorvastatin (Lipitor) tablet 80 mg, Enteral Tube, AT BEDTIME chlorhexidine (Peridex) 0.12 % oral solution 15 mL, Mouth/Throat, BID clopidogrel (plaVIX) tablet 75 mg, Enteral Tube, QDAY famotidine (Pepcid) tablet 20 mg, Enteral Tube, BID folic acid (Folvite) tablet 1 mg, Enteral Tube, QDAY heparin injection 5,000 Units, Subcutaneous, BID insulin aspart (NovoLOG) pen 0-18 Units, Subcutaneous, q6h insulin NPH pen 5 Units, Subcutaneous, BID levETIRAcetam (Keppra) tablet 500 mg, Enteral Tube, BID modafinil (Provigil) tablet 200 mg, Enteral Tube, QAM multiple vitamins with minerals tablet 1 tablet, Enteral Tube, QDAY polyethylene glycol 3350 (Miralax) packet 17 g, Enteral Tube, QDAY senna-docusate (Senokot-S) tablet 2 tablet, Enteral Tube, BID sodium chloride 3 % nebulizer solution 3 mL, Inhalation, q6h thiamine (Vitamin B-1) tablet 100 mg, Enteral Tube, QDAY ?? [COMPLETED] 0.9% NaCl IV bolus, Intravenous, Once CONTINUOUS MEDICATIONS: ?? propofol (Diprivan) infusion, Intravenous, Continuous PRN MEDICATIONS: Or Or 0.9% NaCl injection 1-10 mL, Intracatheter, PRN acetaminophen (Tylenol) tablet 650 mg, Enteral Tube, q4h PRN atropine 1 % ophthalmic solution 2 drop, Sublingual, q6h PRN dextrose 10 % IV bolus, Intravenous, PRN dextrose 10 % IV bolus, Intravenous, PRN fentaNYL (PF) (Sublimaze) injection 50 mcg, Intravenous, q15 min PRN glucagon (Glucagen) injection 1 mg, Subcutaneous, PRN hydrALAZINE (Apresoline) injection 10 mg, Intravenous, q1h PRN ondansetron (Zofran) injection 4 mg, Intravenous, q4h PRN ?? prochlorperazine (Compazine) injection 10 mg, Intravenous, q4h PRN Component Name 02/04/24 1140 02/03/24 2334 02/03/24 1001 02/02/24 2330 01/30/24 0429 01/29/24 0259 01/28/24 0341 SODIUM - 135* 136 136 139 140 139 NA - - - - - - - POTASSIUM - 4.4 4.4 4.3 4.1 4.1 4.0 CHLORIDE - 100 100 99 101 100 102 CL - - - - - - - CO2 - 27 25 24 26 27 26 BUN - 40* 35* 28* 17 15 15 CREATININE - 1.43* 1.71* 1.75* 0.80 0.74 0.75 GLUCOSE - 220* 228* 195* 146* 135* 126* CALCIUM - 9.3 9.6 9.3 9.6 9.3 9.3 ALBUMIN - - - - 2.7* 2.7* 2.6* ALB - - - - - - - PHOS 5.1* 5.4* 4.6 4.6 3.7 4.1 4.4 ANIONGAP - 8 11 13 12 13 11 Blood Sugar Range Past 24 hours: Glucose Bedside (mg/dL) Av.8 mg/dL Min: 181 mg/dL Max: 215 mg/dL Last BM (Date): 01/28/24 Bowel Sounds (All Quadrants): Active (per nursing documentation) Estimated Needs: KCAL: 2030-5562 kcal/day (11-14 kcal/kg BW) (vent/obesity) Protein (g): 138-184 g pro/day (1.5-2.0 g/kg IBW) (vent/obesity) Fluid (ml): Other (comments) (per MD) Needs based on: Kcal/kg- (Comment) (kcal - 128.9 kg BW 02/03, pro - 91.8 kg IBW) Nutrition Issues/Plan: ?? Change TF to Vital 1.2 at 40 ml/hr, water flush per MD. ?? Increase protein additive to 2 pkts BID. Provides: 1152 kcal, 72 g pro, 106 g CHO, 778 ml free water / 240 kcal, 60 g pro from additives. ?? Total with current propofol: 1902 kcal/day Monitor per nutrition guidelines. ASCOM [phone] * Sherie Beltre MD - 02/04/2024 1:06 PM CDT INTERVENTIONAL STROKE NEUROLOGY PROGRESS NOTE Hospital Day: 12 A 63 year old male was admitted with PMH of DM, HTN, alcohol abuse who presented on 01/23/2024 10:27AM with chief complaint of unresponsiveness. He was found down at his home by the recharger person he had scheduled to visit his home today. His last known well was not clear. I spoke with his sister who said they had not seen or spoken to him in the last 24 hrs. He was able to follow some command upon arrival to the hospital but had a hard time moving his lower limbs. Suspicion of posterior circulation stroke was entertained. MRI brain stat was quickly obtained showing multiple infarcts in the brainstem including the left midbrain and left thalamus and right periventricular region. 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 Decision to take to IVRfor exploration and potential management. He was intubated in the ER for airway protection. CTH stable. Family reports L pupil has been larger for 2+months. Extubated 01/24. Reported seizure activity on 01/26, started on Keppra. No further seizure since. PEG placed for neurogenic dysphagia, TF restarted. intubated and sedated on 02/01 due to respiratory failure. 02/04/2024: Patient seen laying in bed, intubated and sedated. Failed SBT this AM, will have to discuss GOC w/ family. MEDICATIONS FOR CURRENT ENCOUNTER: SCHEDULED MEDICATIONS: 0.9% NaCl injection 3 mL, Intracatheter, q8h albuterol-ipratropium (Duo-Neb) nebulizer solution 3 mL, Inhalation, q6h artificial tears ophthalmic ointment, Each Eye, q8h aspirin chew tablet 81 mg, Enteral Tube, QDAY atorvastatin (Lipitor) tablet 80 mg, Enteral Tube, AT BEDTIME chlorhexidine (Peridex) 0.12 % oral solution 15 mL, Mouth/Throat, BID clopidogrel (plaVIX) tablet 75 mg, Enteral Tube, QDAY famotidine (Pepcid) tablet 20 mg, Enteral Tube, BID folic acid (Folvite) tablet 1 mg, Enteral Tube, QDAY heparin injection 5,000 Units, Subcutaneous, BID insulin aspart (NovoLOG) pen 0-18 Units, Subcutaneous, q6h insulin NPH pen 5 Units, Subcutaneous, BID levETIRAcetam (Keppra) tablet 500 mg, Enteral Tube, BID modafinil (Provigil) tablet 200 mg, Enteral Tube, QAM multiple vitamins with minerals tablet 1 tablet, Enteral Tube, QDAY polyethylene glycol 3350 (Miralax) packet 17 g, Enteral Tube, QDAY senna-docusate (Senokot-S) tablet 2 tablet, Enteral Tube, BID sodium chloride 3 % nebulizer solution 3 mL, Inhalation, q6h thiamine (Vitamin B-1) tablet 100 mg, Enteral Tube, QDAY ??? [COMPLETED] 0.9% NaCl IV bolus, Intravenous, Once CONTINUOUS MEDICATIONS: ??? propofol (Diprivan) infusion, Intravenous, Continuous PRN MEDICATIONS: Or Or 0.9% NaCl injection 1-10 mL, Intracatheter, PRN acetaminophen (Tylenol) tablet 650 mg, Enteral Tube, q4h PRN atropine 1 % ophthalmic solution 2 drop, Sublingual, q6h PRN dextrose 10 % IV bolus, Intravenous, PRN dextrose 10 % IV bolus, Intravenous, PRN fentaNYL (PF) (Sublimaze) injection 50 mcg, Intravenous, q15 min PRN glucagon (Glucagen) injection 1 mg, Subcutaneous, PRN hydrALAZINE (Apresoline) injection 10 mg, Intravenous, q1h PRN ondansetron (Zofran) injection 4 mg, Intravenous, q4h PRN ??? prochlorperazine (Compazine) injection 10 mg, Intravenous, q4h PRN Peripheral IV Distal;Left;Posterior Forearm (Active) Placement Date/Time: 02/02/24 1132 Size (Gauge): 20 G Orientation: Distal;Left;Posterior Location: Forearm Insertion attempts (FOR ED ONLY): 1 Number of days: 2 Peripheral IV Distal;Posterior;Right Forearm (Active) Placement Date/Time: 02/02/24 1525 Size (Gauge): 18 G Orientation: Distal;Posterior;Right Location:Forearm Insertion attempts (FOR ED ONLY): 1 Number of days: 1 Enteral - Percutaneous Endoscopic Gastrostomy Abdomen;Midline;Upper (Active) Placement Date/Time: 01/30/24 1514 Placed by: Dr. Ruffin Type: Percutaneous Endoscopic Gastrostomy Tube Location: Abdomen;Midline;Upper Size (FR): 20 Lot Number: [id number] Procedure Tolerance: Sedated Number of days: 4 ETT Endotracheal Tube Cuffed-inflated (Active) Placement Date/Time: 02/02/24 1505 Person who placed: Dr. Jacome Device: Endotracheal Tube Location: Oral Tube Type: Cuffed-inflated Tube size (FR): 8 FR Depth of insertion: 25 CM Measured from: gum Number of insertion attempts: 1 Cuff inflate... Number of days: 1 Central Line (Non-Tunneled) Internal Jugular Triple (Active) Placement Date/Time: 02/02/24 1645 Placed by: Dr. Jacome Central Line Checklist utilized: Yes Orientation: Left Location: Internal Jugular Lumens: Triple Number of days: 1 Indwelling Transurethral Urinary Catheter (Active) Placement Date/Time: 02/03/24 1504 Inserted by ?: No Size (FR): 16 Urinary Catheter Type: Latex Catheter Balloon Size: 10 mL Closed System Maintained This Shift: Yes, Seal Intact Number of attempts: 1 Number of days: 0 BP 100/54 (BP Location: Right arm, Patient Position: Lying) Pulse 93 Temp 99.2 ??F (37.3 ??C) (Axillary) Resp 19 Ht 1.93 m (6' 4 ) Wt 128.9 kg (284 lb 3.2 oz) SpO2 95% Wt Readings from Last 3 Encounters: 02/04/24 128.9 kg (284 lb 3.2 oz) 09/17/23 (!) 148.6 kg (327 lb 9.6 oz) 05/07/23 (!) 145.2 kg (320 lb) Multisystem Examination: Neck: Limited due to ET tube. Respiratory: No respiratory distress. Cardiovascular: Normal heart rate, Normal rhythm. GI: Soft, No tenderness Integument: Warm, Dry Pupillometry Initial: NPI Left: 0 (01/23/24 1700) NPI Right: 4.1 (01/23/24 1700) Pupil Size Left (MM): 4.9 (01/23/24 1700) Pupil Size Right (MM): 2.38 (01/23/24 1700) Current: NPI Left: 0.9 (02/02/24399) NPI Right: 4.5 (02/02/24399) Pupil Size Left (MM): 4.97 (02/02/24399) Pupil Size Right (MM): 2.87 (02/02/24399) Neurological Examination: The patient is intubated and sedated. Speech is absent due to ET tube. L Pupils as above, not responding to threat. Following simple commands to LUE intermittently. Motor/Sensory: No involuntary movements were observed. Limited due to sedation. Coordination: Unable to perform finger to nose. Gait: Not tested due to patient condition. Labs Recent Labs Component Name 02/04/24 0328 01/24/24 0443 07/23/20 0649 01/20/19 1134 CHOL - 229* 254* 258* TRIG 190* 179* 179* 63 HDL - 32* 48 63 LDLCALC - 161* 173* 179* Recent Labs Component Name 02/03/24 2334 02/03/24 1001 02/02/24 2330 01/31/24 1116 01/30/24 0429 01/29/24 0259 01/28/24 0341 SODIUM 135* 136 136 - 139 140 139 POTASSIUM 4.4 4.4 4.3 - 4.1 4.1 4.0 CHLORIDE 100 100 99 - 101 100 102 CO2 27 25 24 - 26 27 26 BUN 40* 35* 28* - 17 15 15 CREATININE 1.43* 1.71* 1.75* - 0.80 0.74 0.75 GLUCOSE 220* 228* 195* - 146* 135* 126* CALCIUM 9.3 9.6 9.3 - 9.6 9.3 9.3 ALBUMIN - - - - 2.7* 2.7* 2.6* ALKPHOS - - - - 81 90 90 ALT - - - - 9 10 12 AST - - - - 14 14 17 TBIL - - - - 0.2 0.2 0.3 TPROT - - - - 7.8 8.2 7.8 EGFR 54* 44* 43* - >90 >90 >90 - = values in this interval not displayed. Evaluation: CT head 01/22: 1. No acute intracranial hemorrhage. 2. Involutional changes with chronic lacunar infarctions and ischemic microangiopathy. 3. Age indeterminate infarction left thalamus and less likely a sequela of trans-synaptic degeneration. MRI brain if there is concern for acute ischemia. CT head 01/23: No acute intracranial hemorrhage. Stable chronic findings. CT angio: Short segment severe, string-like stenosis of the lower basilar artery just above the vertebral confluence. Cerebral Angiogram Impression 01/23/2024: A severe stenosis in the proximal basilar artery, s/p successful balloon angioplasty. Residual stenosis about 50% in lateral view Echo: ??? Left??Ventricle: Left ventricle size is normal. Mildly to moderately increased wall thickness. Normal systolic function. EF 50-55%. Normal wall motion. Diastolic function is indeterminate. ??? Right??Ventricle: Right ventricle is not well visualized. ??? Aortic??Valve: Mild regurgitation. EKG: Results for orders placed or performed during the hospital encounter of 01/23/24 EKG 12-LEAD Result Value Ref Range Ventricular Rate 96 BPM Atrial Rate 96 BPM P-R Interval 146 ms QRS Duration ms 78 ms Q-T Interval ms 360 ms QTC Calculation (Bezet) 454 ms Calculated P [place] 79 degrees Calculated R [place] 76 degrees Calculated T [place] -77 degrees Interpretation EKG Normal sinus rhythm ST & T wave abnormality, consider inferolateral ischemia Abnormal ECG When compared with ECG of 26-JUL-2022 16:28, Premature ventricular complexes are no longer Present Non-specific change in ST segment in Anterior leads Inverted T waves have replaced nonspecific T wave abnormality in Inferior leads T wave amplitude has increased in Anterior leads Confirmed by UJSTICE PURVIS MD ([id number]) on 01/23/2024 2:35:44 PM Tele: Cardiac Rhythm: Sinus Rhythm (02/04/24 1200) LDL: Recent Labs Component Name 01/24/24 0443 07/23/20 0649 01/20/19 1134 LDLCALC 161* 173* 179* HgBA1C: Recent Labs Component Name 01/23/24 1039 09/17/23 1330 10/18/22 1045 HGBA1C 6.1* 6.5 5.9 This patient will benefit from a SGLT-2 or GLP-1, this requires close follow up with PCP or endocrine and lab monitoring. Due to this reason deferred treatment until outpatient follow up. Initial documented NIHSS Score: NIH Total: 13 (01/23/24 1048) Last Documented NIHSS Score: NIH Total: 26 (02/04/24 0744) Depression Screen Score = Does not meet criteria for screening: Aphasia PHQ-2 PHQ-9 Therapy Recommendations: Discharge Discharge Equipment Recommendations: To Be Determined (01/29/24 1429) OT Discharge Recommendations: Patient would benefit from intensive 3-hour multidisciplinary therapy(02/01/24 1402) This recommendation is made due to ongoing intensive OT functional needs: ability to actively participate in intensive therapy 3 hours/day, 5 days a week;patient has the need for more than one skilled therapy service;motivated to participate in therapy;not at baseline due to impaired ability to complete ADL's;functional mobility is significantly below baseline;likely to return to the community atdischarge with support system;patient and/or caregiver require specialized training;patient demonstrates a significant functional decline and would benefit from skilled therapy intervention to restore function;patient has the ability to progress and demonstrate measurable gains as a result of skilled therapy (02/01/24 1402) PT Discharge Recommendations: Patient would benefit from intensive 3-hour multidisciplinary therapy(02/01/24 1405) This recommendation is made due to ongoing intensive PT functional needs: patient has the ability to progress and demonstrate measurable gains as a result of skilled therapy (02/01/24 1405) Recommended Transportation Method: Stretcher/Ambulance (02/01/24 140) Modified [place] Score: Preadmission Modified [place] Score: 0 (01/26/24 0936) Current Modified [place] Score: 5 (02/01/24 1405) Procedures: Basilar artery??angioplasty 01/23/2024 PEG 01/30/24 IMPRESSION - Acute ischemic stroke: Posterior circulation syndrome - 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 - Statin: Lipitor - VTE prevention with SCDs and Heparin - Allow permissive HTN - Maintain euglycemia, SSI - Keppra 500 mg BID - Nutrition: NPO, PEG for nutrition and medication - PT/OT and speech therapy ongoing. - MVI, w/ thiamine and folic acid. - ICU for medical management. Awaiting trach. Pricila Harrison, MSN, CORPORATE FINANCIAL ANALYST, AGNP- Interventional Vascular Neurology [facility] Office: [phone] [facility] [id number] ATTESTATION I have seen and examined the patient with the nurse practitioner. I have re- confirmed the paula elements of the history and performed an examination. I have discussed the patient's care with the nurse practitioner. Pt has failed SBT unfortunately and will need PEG tube placement if Ok with family. He will then require vigorous rehabilitation/ ICu team to continue to manage medical needs/ 02/04/2024 Sherie Beltre MD Interventional Vascular Neurology [facility] * Elina Chen OT - 02/04/2024 12:24 PM CDT OT attempted this AM, however RN reports pt is intubated, not appropriate for therapy at this time.Will continue to follow. SHELLY Antoine/L [phone] * Chuy Siegel DO - 02/04/2024 11:28 AM CDT ICU Progress Note Subjective: Events: Intubated for poor secretion clearance. Symptoms: Patient unable to communicate symptoms, but does not appear to be in any distress. Subjective: Filed Vitals: 02/04/24 0915 02/04/24 0930 02/04/24 0947 02/04/24 0956 BP: 104/63 114/67 Pulse: 91 94 92 92 Resp: 18 20 18 17 Temp: TempSrc: SpO2: 94% 94% 95% 95% Weight: Height: Artificial airway None Physical Exam: GENERAL APPEARANCE: Acutely ill appearing intubated EYE: pupils equal and reactive, extraocular eye movements intact HEENT: NCAT, MMM copious oral secretions NECK: Supple RESP: coarse to auscultation bilaterally. Referred vent sounds. CARDIO: Regular rate, rhythm without murmur. GI/AB: soft, nttp, normoactive bowel sounds SKIN: Normal to inspection. Warm, dry, supple, with no changes in moles or sores that will not heal. NEUROMUSC: follows simple commands Output by Drain (mL) 02/02/24 0701 - 02/02/24 1900 02/02/24 190 - 02/03/24 0700 02/03/24 0701 - 02/03/24 1900 02/03/24 190 - 02/04/24 0700 02/04/24 0701 - 02/04/24 1128 Requested LDAs do not have output data documented. Peripheral IV Distal;Left;Posterior Forearm (Active) Placement Date/Time: 02/02/24 1132 Size (Gauge): 20 G Orientation: Distal;Left;Posterior Location: Forearm Insertion attempts (FOR ED ONLY): 1 Number of days: 1 Peripheral IV Distal;Posterior;Right Forearm (Active) Placement Date/Time: 02/02/24 1525 Size (Gauge): 18 G Orientation: Distal;Posterior;Right Location:Forearm Insertion attempts (FOR ED ONLY): 1 Number of days: 1 Enteral - Percutaneous Endoscopic Gastrostomy Abdomen;Midline;Upper (Active) Placement Date/Time: 01/30/24 1514 Placed by: Dr. Ruffin Type: Percutaneous Endoscopic Gastrostomy Tube Location: Abdomen;Midline;Upper Size (FR): 20 Lot Number: [id number] Procedure Tolerance: Sedated Number of days: 4 ETT Endotracheal Tube Cuffed-inflated (Active) Placement Date/Time: 02/02/24 1505 Person who placed: Dr. Jacome Device: Endotracheal Tube Location: Oral Tube Type: Cuffed-inflated Tube size (FR): 8 FR Depth of insertion: 25 CM Measured from: gum Number of insertion attempts: 1 Cuff inflate... Number of days: 1 Central Line (Non-Tunneled) Internal Jugular Triple (Active) Placement Date/Time: 02/02/24 1645 Placed by: Dr. Jacome Central Line Checklist utilized: Yes Orientation: Left Location: Internal Jugular Lumens: Triple Number of days: 1 Indwelling Transurethral Urinary Catheter (Active) Placement Date/Time: 02/03/24 1504 Inserted by ?: No Size (FR): 16 Urinary Catheter Type: Latex Catheter Balloon Size: 10 mL Closed System Maintained This Shift: Yes, Seal Intact Number of attempts: 1 Number of days: 0 Laboratory Results Reviewed Radiology Reviewed Assessment: Hospital Day: 12 Raza Vazquez is a 63 yom with histdory of CAD s/p CABG, obesity, HTN, HLD, DM II who presented to the ICU after an acute ischemic stroke. Timeline 01/22: Presented to ED after being found down. MRI with brainstem infarcts. 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 Transferred to ICU. 01/23: Sedation weaned. Following simple commands 01/24: Extubated 01/26: Worsening encephalopathy. cEEG initiated. Started on keppra. 01/27: EEG read normal 01/28: Transferred from ICU level of care to stroke service 01/29: PEG placed by GI 01/30: OOB to chair 02/01: Worsening mental status, not clearing secretions. ICU re-consulted. Intubated. 02/02: cont on vent support Plan: Respiratory: Acute hypoxic respiratory failure due to aspirations and acute ischemic stroke with poor secretion clearance - Continue ventilator support - Lung protective ventilation with goal 6-8 cc/kg IBW - Maintain Drive pressure < 15, SaO2 > 90, HOB > 30 degrees, Plateau pressure < 30 cm H20 - Wean PEEP and FiO2 as tolerated - Continue duonebs and hypertonic nebs - atropine drops for oral secretions - SBT as tolerated will likely need tracheostomy - Dr. Kerr agrees. Will discuss trach with pt daughter. Aspiration PNA - Completed 5 days of empiric ceftriaxone 01/27 - Sputum gram stain with GPCs, MRSA swab negative. Cardiovascular: Permissive Hypertension - SBP goal 120-180 - d/c losartan and amlodipine given pressor support - start on NE post intubation for hypotension - suspect sedation related vaso plegia. - cont to wean and resume BP meds as able CAD - S/p CABG - On aspirin, atorvastatin and plavix. Neuro: Acute Ischemic Stroke - 2/2 proximal basilar artery stenosis - s/p angioplasty, unable to stent, c/b dissection of right distal vertebral artery - Completed aggrastat - Continue aspirin, atorvastatin and plavix. - Continue provigil for alertness Seizures - Continue keppra Delirium prophylaxis: - Encourage normal sleep-wake cycle: lights on during the day, frequent re- orientation, sleep hygiene, minimize sleep interruptions. - Avoid sedating medications like benzos and antipsychotics, as much as possible. - PT/OT with early mobility as appropriate ID: Worsening leukocytosis - Continue to monitor WBC and fever curve. Renal: BOLA - improving Hyponatremia, hyperphosphatemia - cont trending labs - Strict Is and Os GI/Diet: Malnutrition Diagnosis Severe Protein Calorie malnutrition in context of acute disease or injury was present on admission.Diagnosis is made in consultation with clinical nutrition who have implemented a care plan. - Continue TFs - Continue to supplement with thiamine, folic acid and MVI. Endo: DM II - Continue SSI Q 6 - add NPH 5 u q12hr Heme: DVT ppx - SQ heparin Prognosis: Guarded Code Status: Full Code I personally spent 50 minutes providing critical care services, time was exclusive to this patient and dose not include time spent on teaching or in procedures. Chuy Siegel DO 02/04/24 11:28 AM Critical Care Medicine * Joanna Causey SLP - 02/04/2024 8:15 AM CDT Speech Language Pathology Chart reviewed. Noted that pt was intubated on 02/01 d/t worsening mental status and poor secretion management. Pt remains on mechanical ventilation at this time and therefore not appropriate for ST/PO. ST to follow. Joanna Berg MS, CCC-NETWORK RELATIONS CONSULTANT 02/04/2024 8:17 AM [phone] * Chrsitos Sheikh RCP - 02/04/2024 4:24 AM CDT Spontaneous Breathing Trial Times Ventilator Liberation Times Ventilator Liberation Time ON: 412 Ventilator Liberation Time OFF: 0415 Initial Settings PSV settin CPAP Settings cm H2O (Initial): 5 Subsequent Settings PSV settin CPAP Settings cm H2O (Subsequent): 5 Results Comments Passed Ventilator Liberation?: No Cuff leak test completed?: Not performed Ventilator Liberation Comments: Pt immediately began breathing at a rate of 50 he was put back intofull support * Christos Sheikh RCP - 02/04/2024 3:52 AM CDT Patient is mechanically ventilated mode APVCMV RR 14 VT 520 PEEP 5 FIO2 21. ETT tube is 7.5 25 @Teeth. Patient will continue to be ventilated. Will continue to SBT and assess as able. * Jaden Huerta RN - 02/03/2024 8:55 PM CDT Problem: Tobacco Use Goal: Inpatient tobacco-use cessation counseling participation Outcome: Progressing Problem: Fall Risk Goal: Patient will remain free of falls Outcome: Progressing Problem: Skin Integrity Goal: Skin integrity is maintained or improved Outcome: Progressing Problem: Neurological Deficit Goal: Neurological status is stable or improving Outcome: Progressing Problem: Oral Intake: Inadequate oral intake Description: related to:: decreased ability to consume or tolerate food and/or fluids due to illness Goal: Enteral/parenteral nutrition prescription will be consistent with estimated needs Description: Raza Francis Nutrition Goal: Enteral/Parenteral Nutrition prescription will be consistent with estimated nutrient needs Nutrition Goal Timeframe: Throughout stay Outcome: Progressing Problem: Ineffective breathing pattern related to obstructive sleep apnea Goal: Maintains optimal sleep pattern, as evidenced by relaxed breathing at normal rate and depth. Outcome: Progressing Goal: Adheres to CPAP (Continuous Positive Airway Pressure) device regimen as prescribed. Outcome: Progressing Problem: Sleep deprivation related to sleep apnea. Goal: Achieves restful, refreshing sleep pattern. Outcome: Progressing Problem: Pain/Discomfort Goal: Patient exhibits reduced pain/discomfort as evidenced by pain scores Outcome: Progressing Goal: Patient uses pharmacological and non-pharmacological pain management strategies. Outcome: Progressing Goal: Patient verbalizes acceptable level of pain relief and ability to engage in desired activity. Outcome: Progressing Problem: Potential for Urinary Catheter-Associated Infection Goal: Signs and Symptoms of urinary catheter-associated infection are avoided Outcome: Progressing Problem: Hemodynamic Status/Cardiac Output Goal: Patient has stable vital signs and fluid balance Outcome: Progressing * Bianca Emery RN - 02/03/2024 6:50 PM CDT Problem: Fall Risk Goal: Patient will remain free of falls Outcome: Progressing Problem: Skin Integrity Goal: Skin integrity is maintained or improved Outcome: Progressing Problem: Pain/Discomfort Goal: Patient exhibits reduced pain/discomfort as evidenced by pain scores Outcome: Progressing Goal: Patient uses pharmacological and non-pharmacological pain management strategies. Outcome: Progressing Goal: Patient verbalizes acceptable level of pain relief and ability to engage in desired activity. Outcome: Progressing * Donald Chappell RCP - 02/03/2024 5:34 PM CDT Pt was admitted on 01/23/2024 for altered mental status/found down at home near an empty bottle of vodka. Patient was intubated on 02/02/2024 with a 7.5 ETT, secured 25 at the teeth, and is being mechanically ventilated in APV/cmv, with a Vt of 520, rate of 14, PEEP of +5 and 25% FiO2. Secretions are thick, white/yellow, and small in amount. Will continue to monitor and wean as able. * Yessenia Kerr MD - 02/03/2024 11:22 AM CDT INTERVENTIONAL STROKE NEUROLOGY PROGRESS NOTE Hospital Day: 11 A 63 year old male was admitted with PMH of DM, HTN, alcohol abuse who presented on 01/23/2024 10:27AM with chief complaint of unresponsiveness. He was found down at his home by the recharger person he had scheduled to visit his home today. His last known well was not clear. I spoke with his sister who said they had not seen or spoken to him in the last 24 hrs. He was able to follow some command upon arrival to the hospital but had a hard time moving his lower limbs. Suspicion of posterior circulation stroke was entertained. MRI brain stat was quickly obtained showing multiple infarcts in the brainstem including the left midbrain and left thalamus and right periventricular region. 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 Decision to take to IVRfor exploration and potential management. He was intubated in the ER for airway protection. CTH stable. Family reports L pupil has been larger for 2+months. Extubated 01/24. Reported seizure activity on 01/26, started on Keppra. No further seizure since. PEG placed for neurogenic dysphagia, TF restarted. 02/03/2024: Patient intubated and sedated on 02/01 due to respiratory failure. Will need a trach. Called daughter, updated on plan of care. Good to move forward with trach. MEDICATIONS FOR CURRENT ENCOUNTER: SCHEDULED MEDICATIONS: 0.9% NaCl injection 3 mL, Intracatheter, q8h albuterol-ipratropium (Duo-Neb) nebulizer solution 3 mL, Inhalation, q6h amLODIPine (Norvasc) tablet 10 mg, Enteral Tube, QDAY aspirin chew tablet 81 mg, Enteral Tube, QDAY atorvastatin (Lipitor) tablet 80 mg, Enteral Tube, AT BEDTIME clopidogrel (plaVIX) tablet 75 mg, Enteral Tube, QDAY folic acid (Folvite) tablet 1 mg, Enteral Tube, QDAY heparin injection 5,000 Units, Subcutaneous, BID insulin aspart (NovoLOG) pen 0-18 Units, Subcutaneous, q6h levETIRAcetam (Keppra) tablet 500 mg, Enteral Tube, BID losartan (Cozaar) tablet 50 mg, Enteral Tube, AT BEDTIME modafinil (Provigil) tablet 200 mg, Enteral Tube, QAM multiple vitamins with minerals tablet 1 tablet, Enteral Tube, QDAY senna-docusate (Senokot-S) tablet 2 tablet, Enteral Tube, BID sodium chloride 3 % nebulizer solution 3 mL, Inhalation, q6h thiamine (Vitamin B-1) tablet 100 mg, Enteral Tube, QDAY [COMPLETED] bisacodyl (Dulcolax) suppository 10 mg, Rectal, Once [COMPLETED] etomidate (Amidate) injection 20 mg, Intravenous, Once [COMPLETED] magnesium sulfate 4 g in 100 mL bolus, Intravenous, Once ??? [COMPLETED] rocuronium (Zemuron) injection 50 mg, Intravenous, Once CONTINUOUS MEDICATIONS: norepinephrine (Levophed) 8 mg/250 ml D5 infusion premix, Intravenous, Continuous ??? propofol (Diprivan) infusion, Intravenous, Continuous PRN MEDICATIONS: Or Or 0.9% NaCl injection 1-10 mL, Intracatheter, PRN acetaminophen (Tylenol) tablet 650 mg, Enteral Tube, q4h PRN atropine 1 % ophthalmic solution 2 drop, Sublingual, q6h PRN dextrose 10 % IV bolus, Intravenous, PRN dextrose 10 % IV bolus, Intravenous, PRN fentaNYL (PF) (Sublimaze) injection 50 mcg, Intravenous, q15 min PRN glucagon (Glucagen) injection 1 mg, Subcutaneous, PRN hydrALAZINE (Apresoline) injection 10 mg, Intravenous, q1h PRN ondansetron (Zofran) injection 4 mg, Intravenous, q4h PRN ??? prochlorperazine (Compazine) injection 10 mg, Intravenous, q4h PRN Peripheral IV Distal;Left;Posterior Forearm (Active) Placement Date/Time: 02/02/24 1132 Size (Gauge): 20 G Orientation: Distal;Left;Posterior Location: Forearm Insertion attempts (FOR ED ONLY): 1 Number of days: 0 Peripheral IV Distal;Posterior;Right Forearm (Active) Placement Date/Time: 02/02/24 1525 Size (Gauge): 18 G Orientation: Distal;Posterior;Right Location:Forearm Insertion attempts (FOR ED ONLY): 1 Number of days: 0 Enteral - Percutaneous Endoscopic Gastrostomy Abdomen;Midline;Upper (Active) Placement Date/Time: 01/30/24 1514 Placed by: Dr. Ruffin Type: Percutaneous Endoscopic Gastrostomy Tube Location: Abdomen;Midline;Upper Size (FR): 20 Lot Number: [id number] Procedure Tolerance: Sedated Number of days: 3 ETT Endotracheal Tube Cuffed-inflated (Active) Placement Date/Time: 02/02/24 1505 Person who placed: Dr. Jacome Device: Endotracheal Tube Location: Oral Tube Type: Cuffed-inflated Tube size (FR): 7.5 FR Depth of insertion: 25 CM Measured from: gum Number of insertion attempts: 1 Cuff infla... Number of days: 0 Central Line (Non-Tunneled) Internal Jugular Triple (Active) Placement Date/Time: 02/02/24 1645 Placed by: Dr. Jacome Central Line Checklist utilized: Yes Orientation: Left Location: Internal Jugular Lumens: Triple Number of days: 0 Indwelling Transurethral Urinary Catheter (Active) Placement Date/Time: 02/02/24 1552 Inserted by ?: No Size (FR): 16 Catheter Balloon Size: 10 mL Closed System Maintained This Shift: Yes, Seal Intact Number of attempts: 1 Procedure Tolerance: Well Number of days: 0 BP 108/63 Pulse 83 Temp 98.3 ??F (36.8 ??C) (Axillary) Resp 23 Ht 1.93 m (6' 4 ) Wt 129 kg (284 lb 6.3 oz) SpO2 100% Wt Readings from Last 3 Encounters: 02/03/24 129 kg (284 lb 6.3 oz) 09/17/23 (!) 148.6 kg (327 lb 9.6 oz) 05/07/23 (!) 145.2 kg (320 lb) Multisystem Examination: Neck: Limited due to ET tube. Respiratory: No respiratory distress. Cardiovascular: Normal heart rate, Normal rhythm. GI: Soft, No tenderness Integument: Warm, Dry Pupillometry Initial: NPI Left: 0 (01/23/24 1700) NPI Right: 4.1 (01/23/24 1700) Pupil Size Left (MM): 4.9 (01/23/24 1700) Pupil Size Right (MM): 2.38 (01/23/24 1700) Current: NPI Left: 0.9 (02/02/24 0400) NPI Right: 4.5 (02/02/24 0400) Pupil Size Left (MM): 4.97 (02/02/24 0400) Pupil Size Right (MM): 2.87 (02/02/24 0400) Neurological Examination: The patient is intubated and sedated. Speech is absent due to ET tube. L Pupils as above, not responding to threat. Motor/Sensory: No involuntary movements were observed. Limited due to sedation. Coordination: Unable to perform finger to nose. Gait: Not tested due to patient condition. Labs Recent Labs Component Name 01/24/24 0443 07/23/20 0649 01/20/19 1134 CHOL 229* 254* 258* TRIG 179* 179* 63 HDL 32* 48 63 LDLCALC 161* 173* 179* Recent Labs Component Name 02/03/24 1001 02/02/24 2330 02/02/24 1054 01/31/24 1116 01/30/24 0429 01/29/24 0259 01/28/24 0341 SODIUM 136 136 136 - 139 140 139 POTASSIUM 4.4 4.3 4.5 - 4.1 4.1 4.0 CHLORIDE 100 99 101 - 101 100 102 CO2 25 24 27 - 26 27 26 BUN 35* 28* 21 - 17 15 15 CREATININE 1.71* 1.75* 0.82 - 0.80 0.74 0.75 GLUCOSE 228* 195* 218* - 146* 135* 126* CALCIUM 9.6 9.3 9.3 - 9.6 9.3 9.3 ALBUMIN - - - - 2.7* 2.7* 2.6* ALKPHOS - - - - 81 90 90 ALT - - - - 9 10 12 AST - - - - 14 14 17 TBIL - - - - 0.2 0.2 0.3 TPROT - - - - 7.8 8.2 7.8 EGFR 44* 43* >90 - >90 >90 >90 - = values in this interval not displayed. Evaluation: CT head 01/22: 1. No acute intracranial hemorrhage. 2. Involutional changes with chronic lacunar infarctions and ischemic microangiopathy. 3. Age indeterminate infarction left thalamus and less likely a sequela of trans-synaptic degeneration. MRI brain if there is concern for acute ischemia. CT head 01/23: No acute intracranial hemorrhage. Stable chronic findings. CT angio: Short segment severe, string-like stenosis of the lower basilar artery just above the vertebral confluence. Cerebral Angiogram Impression 01/23/2024: A severe stenosis in the proximal basilar artery, s/p successful balloon angioplasty. Residual stenosis about 50% in lateral view Echo: ??? Left??Ventricle: Left ventricle size is normal. Mildly to moderately increased wall thickness. Normal systolic function. EF 50-55%. Normal wall motion. Diastolic function is indeterminate. ??? Right??Ventricle: Right ventricle is not well visualized. ??? Aortic??Valve: Mild regurgitation. EKG: Results for orders placed or performed during the hospital encounter of 01/23/24 EKG 12-LEAD Result Value Ref Range Ventricular Rate 96 BPM Atrial Rate 96 BPM P-R Interval 146 ms QRS Duration ms 78 ms Q-T Interval ms 360 ms QTC Calculation (Bezet) 454 ms Calculated P [place] 79 degrees Calculated R [place] 76 degrees Calculated T [place] -77 degrees Interpretation EKG Normal sinus rhythm ST & T wave abnormality, consider inferolateral ischemia Abnormal ECG When compared with ECG of 26-JUL-2022 16:28, Premature ventricular complexes are no longer Present Non-specific change in ST segment in Anterior leads Inverted T waves have replaced nonspecific T wave abnormality in Inferior leads T wave amplitude has increased in Anterior leads Confirmed by JUSTICE PURVIS MD ([id number]) on 01/23/2024 2:35:44 PM Tele: Cardiac Rhythm: Sinus Arrhythmia (02/03/24 0800) LDL: Recent Labs Component Name 01/24/24 0443 07/23/20 0649 01/20/19 1134 LDLCALC 161* 173* 179* HgBA1C: Recent Labs Component Name 01/23/24 1039 09/17/23 1330 10/18/22 1045 HGBA1C 6.1* 6.5 5.9 This patient will benefit from a SGLT-2 or GLP-1, this requires close follow up with PCP or endocrine and lab monitoring. Due to this reason deferred treatment until outpatient follow up. Initial documented NIHSS Score: NIH Total: 13 (01/23/24 1048) Last Documented NIHSS Score: NIH Total: 29 (02/03/24 0800) Depression Screen Score = Does not meet criteria for screening: Aphasia PHQ-2 PHQ-9 Therapy Recommendations: Discharge Discharge Equipment Recommendations: To Be Determined (01/29/24 1421) OT Discharge Recommendations: Patient would benefit from intensive 3-hour multidisciplinary therapy(02/01/24 140) This recommendation is made due to ongoing intensive OT functional needs: ability to actively participate in intensive therapy 3 hours/day, 5 days a week;patient has the need for more than one skilled therapy service;motivated to participate in therapy;not at baseline due to impaired ability to complete ADL's;functional mobility is significantly below baseline;likely to return to the community atdischarge with support system;patient and/or caregiver require specialized training;patient demonstrates a significant functional decline and would benefit from skilled therapy intervention to restore function;patient has the ability to progress and demonstrate measurable gains as a result of skilled therapy (02/01/24 140) PT Discharge Recommendations: Patient would benefit from intensive 3-hour multidisciplinary therapy(02/01/24 1405) This recommendation is made due to ongoing intensive PT functional needs: patient has the ability to progress and demonstrate measurable gains as a result of skilled therapy (02/01/24 140) Recommended Transportation Method: Stretcher/Ambulance (02/01/24 1407) Modified [place] Score: Preadmission Modified [place] Score: 0 (01/26/24 0936) Current Modified [place] Score: 5 (02/01/24 1405) Procedures: Basilar artery??angioplasty 01/23/2024 PEG 01/30/24 IMPRESSION - Acute ischemic stroke: Posterior circulation syndrome - 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 - Statin: Lipitor - VTE prevention with SCDs and Heparin - Allow permissive HTN - Maintain euglycemia, SSI - Keppra 500 mg BID - Nutrition: NPO, PEG for nutrition and medication - PT/OT and speech therapy ongoing. - MVI, w/ thiamine and folic acid. - ICU for medical management. Awaiting trach. Travis Bhat, MSN, CORPORATE FINANCIAL ANALYST, MERCHANDISE FLOW MANAGER-C, SCRN, CNRN Interventional Vascular Neurology [facility] ASCOM #[id number] ATTESTATION I have seen and examined the patient with the nurse practitioner. I have re- confirmed the paula elements of the history and performed an examination. I have discussed the patient's care with the nurse practitioner. ?? Patient had respiratory failure yesterday and had to be intubated. He is sedated and could not follow commands. He responded to pain in the limbs. He will need tracheotomy. ? Yessenia Kerr MD Interventional Vascular Neurology [facility] Pager- [phone] Nurse Practitioner ([id number]) ?? * Chuy Siegel DO - 02/03/2024 8:19 AM CDT ICU Progress Note Subjective: Events: Intubated for poor secretion clearance. Symptoms: Patient unable to communicate symptoms, but does not appear to be in any distress. Subjective: Filed Vitals: 02/03/24 0615 02/03/24 0621 02/03/24 0630 02/03/24 0645 BP: 120/80 120/80 126/73 130/61 Pulse: 69 76 77 Resp: Temp: TempSrc: SpO2: 100% 100% 100% Weight: Height: Artificial airway None Physical Exam: GENERAL APPEARANCE: Acutely ill appearing intubated EYE: pupils equal and reactive, extraocular eye movements intact HEENT: NCAT, MMM copious oral secretions NECK: Supple RESP: coarse to auscultation bilaterally. Referred vent sounds. CARDIO: Regular rate, rhythm without murmur. GI/AB: soft, nttp, normoactive bowel sounds SKIN: Normal to inspection. Warm, dry, supple, with no changes in moles or sores that will not heal. NEUROMUSC: follows simple commands Output by Drain (mL) 02/01/24 0701 - 02/01/24 1900 02/01/24 190 - 02/02/24 0700 02/02/24 0701 - 02/02/24 1900 02/02/24 190 - 02/03/24 0700 02/03/24 0701 - 02/03/24 0819 Requested LDAs do not have output data documented. Peripheral IV Distal;Left;Posterior Forearm (Active) Placement Date/Time: 02/02/24 1132 Size (Gauge): 20 G Orientation: Distal;Left;Posterior Location: Forearm Insertion attempts (FOR ED ONLY): 1 Number of days: 0 Peripheral IV Distal;Posterior;Right Forearm (Active) Placement Date/Time: 02/02/24 1525 Size (Gauge): 18 G Orientation: Distal;Posterior;Right Location:Forearm Insertion attempts (FOR ED ONLY): 1 Number of days: 0 Enteral - Percutaneous Endoscopic Gastrostomy Abdomen;Midline;Upper (Active) Placement Date/Time: 01/30/24 1514 Placed by: Dr. Ruffin Type: Percutaneous Endoscopic Gastrostomy Tube Location: Abdomen;Midline;Upper Size (FR): 20 Lot Number: [id number] Procedure Tolerance: Sedated Number of days: 3 ETT Endotracheal Tube Cuffed-inflated (Active) Placement Date/Time: 02/02/24 1505 Person who placed: Dr. Jacome Device: Endotracheal Tube Location: Oral Tube Type: Cuffed-inflated Tube size (FR): 7.5 FR Depth of insertion: 25 CM Measured from: gum Number of insertion attempts: 1 Cuff infla... Number of days: 0 Central Line (Non-Tunneled) Internal Jugular Triple (Active) Placement Date/Time: 02/02/24 1645 Placed by: Dr. Jacome Central Line Checklist utilized: Yes Orientation: Left Location: Internal Jugular Lumens: Triple Number of days: 0 Indwelling Transurethral Urinary Catheter (Active) Placement Date/Time: 02/02/24 1552 Inserted by ?: No Size (FR): 16 Catheter Balloon Size: 10 mL Closed System Maintained This Shift: Yes, Seal Intact Number of attempts: 1 Procedure Tolerance: Well Number of days: 0 Laboratory Results Reviewed Radiology Reviewed Assessment: Hospital Day: Raza Vazquez is a 63 yom with histdory of CAD s/p CABG, obesity, HTN, HLD, DM II who presented to the ICU after an acute ischemic stroke. Timeline 01/22: Presented to ED after being found down. MRI with brainstem infarcts. 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 Transferred to ICU. 01/23: Sedation weaned. Following simple commands 01/24: Extubated 01/26: Worsening encephalopathy. cEEG initiated. Started on keppra. 01/27: EEG read normal 01/28: Transferred from ICU level of care to stroke service 01/29: PEG placed by GI 01/30: OOB to chair 02/01: Worsening mental status, not clearing secretions. ICU re-consulted. Intubated. Plan: Respiratory: Acute hypoxic respiratory failure due to aspirations and acute ischemic stroke with poor secretion clearance - Continue ventilator support - Lung protective ventilation with goal 6-8 cc/kg IBW - Maintain Drive pressure < 15, SaO2 > 90, HOB > 30 degrees, Plateau pressure < 30 cm H20 - Wean PEEP and FiO2 as tolerated - SBT as tolerated will likely need tracheostomy - Dr. Kerr agrees. - Continue duonebs and hypertonic nebs - atropine drops for oral secretions Aspiration PNA - Completed 5 days of empiric ceftriaxone 01/27 - Sputum gram stain with GPCs, MRSA swab negative. Cardiovascular: Permissive Hypertension - SBP goal 120-180 - d/c losartan and amlodipine given pressor support - start on NE post intubation for hypotension - suspect sedation related vaso plegia. - cont to wean and resume BP meds as able CAD - S/p CABG - On aspirin, atorvastatin and plavix. Neuro: Acute Ischemic Stroke - 2/2 proximal basilar artery stenosis - s/p angioplasty, unable to stent, c/b dissection of right distal vertebral artery - Completed aggrastat - Continue aspirin, atorvastatin and plavix. - Continue provigil for alertness Seizures - Continue keppra Delirium prophylaxis: - Encourage normal sleep-wake cycle: lights on during the day, frequent re- orientation, sleep hygiene, minimize sleep interruptions. - Avoid sedating medications like benzos and antipsychotics, as much as possible. - PT/OT with early mobility as appropriate ID: Worsening leukocytosis - Continue to monitor WBC and fever curve. Renal: - Strict Is and Os GI/Diet: Malnutrition Diagnosis Severe Protein Calorie malnutrition in context of acute disease or injury was present on admission.Diagnosis is made in consultation with clinical nutrition who have implemented a care plan. - Continue TFs - Continue to supplement with thiamine, folic acid and MVI. Endo: DM II - Continue SSI Q 6 Heme: DVT ppx - SQ heparin Prognosis: Guarded Code Status: Full Code D/W Dr Usha Jules personally spent 50 minutes providing critical care services, time was exclusive to this patient and dose not include time spent on teaching or in procedures. Chuy Siegel DO 02/03/24 8:19 AM Critical Care Medicine * Janet Solano RCP - 02/03/2024 6:06 AM CDT Patient is mechanically ventilated mode RR 14 VT 520 PEEP 5 FIO2 40%. ETT tube is 7.5 25th. Patientwill continue to be ventilated. Will continue to SBT and assess as able. No SBT per MD * Jaden Huerta RN - 02/02/2024 9:05 PM CDT Problem: Tobacco Use Goal: Inpatient tobacco-use cessation counseling participation Outcome: Progressing Problem: Fall Risk Goal: Patient will remain free of falls Outcome: Progressing Problem: Skin Integrity Goal: Skin integrity is maintained or improved Outcome: Progressing Problem: Neurological Deficit Goal: Neurological status is stable or improving Outcome: Progressing Problem: Oral Intake: Inadequate oral intake Description: related to:: decreased ability to consume or tolerate food and/or fluids due to illness Goal: Enteral/parenteral nutrition prescription will be consistent with estimated needs Description: R[facility] Francis Nutrition Goal: Enteral/Parenteral Nutrition prescription will be consistent with estimated nutrient needs Nutrition Goal Timeframe: Throughout stay Outcome: Progressing Problem: Ineffective breathing pattern related to obstructive sleep apnea Goal: Maintains optimal sleep pattern, as evidenced by relaxed breathing at normal rate and depth. Outcome: Progressing Goal: Adheres to CPAP (Continuous Positive Airway Pressure) device regimen as prescribed. Outcome: Progressing Problem: Sleep deprivation related to sleep apnea. Goal: Achieves restful, refreshing sleep pattern. Outcome: Progressing Problem: Pain/Discomfort Goal: Patient exhibits reduced pain/discomfort as evidenced by pain scores Outcome: Progressing Goal: Patient uses pharmacological and non-pharmacological pain management strategies. Outcome: Progressing Goal: Patient verbalizes acceptable level of pain relief and ability to engage in desired activity. Outcome: Progressing Problem: Potential for Urinary Catheter-Associated Infection Goal: Signs and Symptoms of urinary catheter-associated infection are avoided Outcome: Progressing Problem: Hemodynamic Status/Cardiac Output Goal: Patient has stable vital signs and fluid balance Outcome: Progressing * Christi Torres RCP - 02/02/2024 5:11 PM CDT 02/02/24 1505 Patient Verification Patient Identified: By Identification Arm Band;Verified Name;Verified Birthdate ETT Endotracheal Tube Cuffed-inflated Placement Date/Time: 02/02/24 1505 Person who placed: Dr. Jacome Device: Endotracheal Tube Location: Oral Tube Type: Cuffed-inflated Tube size (FR): 7.5 FR Depth of insertion: 25 CM Measured from: gum Number of insertion attempts: 1 Cuff infla... Status Intact;Secured;Patent Current ETT size 7.5 Tube secured at: 25 Insertion Line Measured at: Teeth Device Site Position Center Secured with Securing device Document any leak(s) none Airway Emergency Supplies Available Appropriate Size Mask;Resuscitation Bag w/PEEP Valve;Suction Device Airway Care/VAE Inline Suction Catheter? Inplace HOB between 30-45 degrees Yes Suctioned? No Mechanical Ventilation Vent Time ON 1505 $ Intubation Assist Charge intubation assist charge Mechanical Ventilation Mode $ Vent Charge $ Initial $ O2 DEVICE Ventilator $ Medical Gases O2 % (FiO2) 100 % Vitals Pulse (!) 111 SpO2 98 % ETCO2 (mmHg) 36 mmHg $ Continuous ETCO2 Continuous Ventilation Rate SET VENTILATION RATE (bpm) 18 bpm OBSERVED VENTILATION RATE (bpm) 18 bpm Insp Time 0.83 Insp Flow (L/Min) 60.7 l/Min Actual I:E Ratio 1:3 Volumes SET TIDAL VOLUME (mL) 520 ML EXHALED TIDAL VOLUME (ml) 517 ml Observed Minute Ventilation (L/m) 9.6 Liters/Minute Tubing Compensation (ATC) On Ventilator Pressures OBSERVED PEAK INSPIRATORY PRESSURE (cm H2O) 22 cm H2O PLATEAU PRESSURE (cm H2O) 16 cm H2O Mean Airway Pressure (cm H2O) 8.8 cm H2O PEEP/CPAP 5 cm H20 DRIVING PRESSURE 11 Sensitivity Flow Trigger 5 Safety & Alarms Airway Emergency Supplies Available Bulb syringe/suction;Resuscitation Bag with PEEP Valve;Resuscitation Bag Humidity Source HME HME Filter In place Expiratory Filter In place Backup Mode Checked Yes Alarm Volume 10 High Pressure Alarm (cm H2O) 40 cm H2O Low Pressure alarm (cmH2O) 5 High Minute Ventilation 25 Low Minute Ventilation 4 High Tidal Volume 1000 Low Tidal Volume 200 ml High Resp Rate 40 Low Resp Rate 8 Apnea (secs) 20 secs High ETCO2 60 mmHg Low ETCO2 20 mmHg * Christi Torres RCP - 02/02/2024 3:38 PM CDT ETT placement and verification completed with color change noted. Bilateral breath sounds noted epigastrium auscultation-negative. Visual exam of thoracic movement of respirations noted. 18/520/5/100 at this time. Will continue to monitor and wean. * Elina Chen OT - 02/02/2024 2:08 PM CDT OT attempted this PM, however RN reports pt may need to be re-intubated today. Will hold OT at thistime, will follow. JOSE E AntoineR/L [phone] * Manisha Terry MD - 02/02/2024 12:11 PM CDT ICU Progress Note Subjective: Events: Poor secretions clearance. Transferred back to ICU level of care. Symptoms: Patient unable to communicate symptoms, but does not appear to be in any distress. Subjective: Filed Vitals: 02/02/24 1100 02/02/24 1200 02/02/24 1215 02/02/24 1300 BP: 153/92 146/89 144/89 Pulse: 97 96 96 98 Resp: 29 29 (!) 34 (!) 33 Temp: 97.1 ??F (36.2 ??C) TempSrc: Axillary SpO2: 98% 96% 96% 95% Weight: Height: Artificial airway None Physical Exam: GENERAL APPEARANCE: Acutely ill appearing EYE: pupils equal and reactive, extraocular eye movements intact HEENT: NCAT, MMM NECK: Supple RESP: Clear to auscultation bilaterally. No abnormal respiratory effort or retraction noted. Breathsounds are positive bilaterally. CARDIO: Regular rate, rhythm without murmur. GI/AB: soft, nttp, normoactive bowel sounds SKIN: Normal to inspection. Warm, dry, supple, with no changes in moles or sores that will not heal. NEUROMUSC: follows simple commands Output by Drain (mL) 01/31/24 0701 - 01/31/24 1900 01/31/24 190 - 02/01/24 0700 02/01/24 0701 - 02/01/24 1900 02/01/24 1901 - 02/02/24 0700 02/02/24 0701 - 02/02/24 1313 Requested LDAs do not have output data documented. Peripheral IV Distal;Left;Posterior Forearm (Active) Placement Date/Time: 02/02/24 1132 Size (Gauge): 20 G Orientation: Distal;Left;Posterior Location: Forearm Insertion attempts (FOR ED ONLY): 1 Number of days: 0 Enteral - Percutaneous Endoscopic Gastrostomy Abdomen;Midline;Upper (Active) Placement Date/Time: 01/30/24 1514 Placed by: Dr. Ruffin Type: Percutaneous Endoscopic Gastrostomy Tube Location: Abdomen;Midline;Upper Size (FR): 20 Lot Number: [id number] Procedure Tolerance: Sedated Number of days: 2 Condom Urinary Catheter 02/01/24 141 (Active) Placement Date/Time: 02/01/241409 Size: Medium Procedure Tolerance: Well Number of days: 0 Laboratory Results Reviewed Radiology Reviewed Assessment: Hospital Day: Raza Vazquez is a 63 yom with histdory of CAD s/p CABG, obesity, HTN, HLD, DM II who presented to the ICU after an acute ischemic stroke. Timeline 01/22: Presented to ED after being found down. MRI with brainstem infarcts. 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 Transferred to ICU. 01/23: Sedation weaned. Following simple commands 01/24: Extubated 01/26: Worsening encephalopathy. cEEG initiated. Started on keppra. 01/27: EEG read normal 01/28: Transferred from ICU level of care to stroke service 01/29: PEG placed by GI 01/30: OOB to chair 02/01: Worsening mental status, not clearing secretions. ICU re-consulted. Plan: Respiratory: Hypoxia - 2/2 acute ischemic stroke with poor secretion clearance - Currently on 2 L face mask - Continue NT suctioning - Started on hypertonic nebs - Continue duonebs - Obtain CXR - High risk for re-intubation Aspiration PNA - Completed 5 days of empiric ceftriaxone 01/27 - Sputum gram stain with GPCs, MRSA swab negative. Cardiovascular: Permissive Hypertension - SBP goal 120-180 - Continue losartan and amlodipine CAD - S/p CABG - On aspirin, atorvastatin and plavix. Neuro: Acute Ischemic Stroke - 2/2 proximal basilar artery stenosis - s/p angioplasty, unable to stent, c/b dissection of right distal vertebral artery - Completed aggrastat - Continue aspirin, atorvastatin and plavix. - Continue provigil for alertness Seizures - Continue keppra Delirium prophylaxis: - Encourage normal sleep-wake cycle: lights on during the day, frequent re- orientation, sleep hygiene, minimize sleep interruptions. - Avoid sedating medications like benzos and antipsychotics, as much as possible. - PT/OT with early mobility as appropriate ID: - No S/S of infection at this time - Continue to monitor Renal: - Strict Is and Os GI/Diet: Malnutrition Diagnosis Severe Protein Calorie malnutrition in context of acute disease or injury was present on admission.Diagnosis is made in consultation with clinical nutrition who have implemented a care plan. - Continue TFs - Continue to supplement with thiamine, folic acid and MVI. Endo: DM II - Continue high dose SSI Q 6 Heme: DVT ppx - SQ heparin Prognosis: Guarded Code Status: Full Code D/W Dr Kerr I personally spent 45 minutes providing critical care services, time was exclusive to this patient and dose not include time spent on teaching or in procedures. Manisha Terry MD 02/02/24 1:13 PM Critical Care Medicine * Yessenia Kerr MD - 02/02/2024 11:15 AM CDT INTERVENTIONAL STROKE NEUROLOGY PROGRESS NOTE Hospital Day: 10 A 63 year old male was admitted with PMH of DM, HTN, alcohol abuse who presented on 01/23/2024 10:27AM with chief complaint of unresponsiveness. He was found down at his home by the recharger person he had scheduled to visit his home today. His last known well was not clear. I spoke with his sister who said they had not seen or spoken to him in the last 24 hrs. He was able to follow some command upon arrival to the hospital but had a hard time moving his lower limbs. Suspicion of posterior circulation stroke was entertained. MRI brain stat was quickly obtained showing multiple infarcts in the brainstem including the left midbrain and left thalamus and right periventricular region. 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 Decision to take to IVRfor exploration and potential management. He was intubated in the ER for airway protection. CTH stable. Family reports L pupil has been larger for 2+months. Extubated 01/24. Reported seizure activity on 01/26, started on Keppra. No further seizure since. PEG placed for neurogenic dysphagia, TF restarted. 02/02/2024: Patient in bed awake and following simple commands. Slow to respond. Magnesium low today, replaced. MEDICATIONS FOR CURRENT ENCOUNTER: SCHEDULED MEDICATIONS: 0.9% NaCl injection 3 mL, Intracatheter, q8h albuterol-ipratropium (Duo-Neb) nebulizer solution 3 mL, Inhalation, q6h amLODIPine (Norvasc) tablet 10 mg, Enteral Tube, QDAY aspirin chew tablet 81 mg, Enteral Tube, QDAY atorvastatin (Lipitor) tablet 80 mg, Enteral Tube, AT BEDTIME bisacodyl (Dulcolax) suppository 10 mg, Rectal, Once clopidogrel (plaVIX) tablet 75 mg, Enteral Tube, QDAY folic acid (Folvite) tablet 1 mg, Enteral Tube, QDAY heparin injection 5,000 Units, Subcutaneous, BID insulin aspart (NovoLOG) pen 0-18 Units, Subcutaneous, q6h levETIRAcetam (Keppra) tablet 500 mg, Enteral Tube, BID losartan (Cozaar) tablet 50 mg, Enteral Tube, AT BEDTIME magnesium sulfate 4 g in 100 mL bolus, Intravenous, Once modafinil (Provigil) tablet 200 mg, Enteral Tube, QAM multiple vitamins with minerals tablet 1 tablet, Enteral Tube, QDAY senna-docusate (Senokot-S) tablet 2 tablet, Enteral Tube, BID sodium chloride 3 % nebulizer solution 3 mL, Inhalation, q6h ??? thiamine (Vitamin B-1) tablet 100 mg, Enteral Tube, QDAY CONTINUOUS MEDICATIONS: ??? niCARdipine (Cardene) 50 mg in 0.9% NaCl IV 100 mL infusion, Intravenous, Continuous PRN MEDICATIONS: Or Or 0.9% NaCl injection 1-10 mL, Intracatheter, PRN acetaminophen (Tylenol) tablet 650 mg, Enteral Tube, q4h PRN dextrose 10 % IV bolus, Intravenous, PRN dextrose 10 % IV bolus, Intravenous, PRN glucagon (Glucagen) injection 1 mg, Subcutaneous, PRN hydrALAZINE (Apresoline) injection 10 mg, Intravenous, q1h PRN ondansetron (Zofran) injection 4 mg, Intravenous, q4h PRN ??? prochlorperazine (Compazine) injection 10 mg, Intravenous, q4h PRN Peripheral IV Distal;Left;Posterior Forearm (Active) Placement Date/Time: 02/02/24 1132 Size (Gauge): 20 G Orientation: Distal;Left;Posterior Location: Forearm Insertion attempts (FOR ED ONLY): 1 Number of days: 0 Enteral - Percutaneous Endoscopic Gastrostomy Abdomen;Midline;Upper (Active) Placement Date/Time: 01/30/241513 Placed by: Dr. Ruffin Type: Percutaneous Endoscopic Gastrostomy Tube Location: Abdomen;Midline;Upper Size (FR): 20 Lot Number: [id number] Procedure Tolerance: Sedated Number of days: 2 Condom Urinary Catheter 02/01/241409 (Active) Placement Date/Time: 02/01/241409 Size: Medium Procedure Tolerance: Well Number of days: 0 BP 153/92 (BP Location: Right arm, Patient Position: Lying) Pulse 97 Temp 98.1 ??F (36.7 ??C) (Axillary) Resp 29 Ht 1.93 m (6' 4 ) Wt 129 kg (284 lb 6.3 oz) SpO2 98% Wt Readings from Last 3 Encounters: 02/02/24 129 kg (284 lb 6.3 oz) 09/17/23 (!) 148.6 kg (327 lb 9.6 oz) 05/07/23 (!) 145.2 kg (320 lb) Multisystem Examination: Neck: ROM intact Respiratory: No respiratory distress. Cardiovascular: Normal heart rate, Normal rhythm. GI: Soft, No tenderness Integument: Warm, Dry Pupillometry Initial: NPI Left: 0 (01/23/24 1700) NPI Right: 4.1 (01/23/24 1700) Pupil Size Left (MM): 4.9 (01/23/24 1700) Pupil Size Right (MM): 2.38 (01/23/24 1700) Current: NPI Left: 0.9 (02/02/24 0400) NPI Right: 4.5 (02/02/24 0400) Pupil Size Left (MM): 4.97 (02/02/24 0400) Pupil Size Right (MM): 2.87 (02/02/24 0400) Neurological Examination: The patient is Awake, alert, and cooperative. He follows simple commands. Speech is expressive aphasia, dysarthric and soft. L Pupil is 3 mm R pupil is 3 mm, inconsistent to threat on the right. Oculocephalic movements are present. Hearing intact. Motor: No involuntary movements were observed. Facial movements are asymmetric on the right. Strength is 3/5 in LUE, 0/5 RUE and 1/5 in the L LE and 1/5 in the R LE. Sensory: Facial and peripheral sensation are intact. Coordination: Unable to perform finger to nose. Gait: Not tested due to patient condition. Labs Recent Labs Component Name 01/24/24 0443 07/23/20 0649 01/20/19 1134 CHOL 229* 254* 258* TRIG 179* 179* 63 HDL 32* 48 63 LDLCALC 161* 173* 179* Recent Labs Component Name 02/02/24 1054 02/01/24 2220 02/01/24 1125 01/31/24 1116 01/30/24 0429 01/29/24 0259 01/28/24 0341 SODIUM 136 138 137 - 139 140 139 POTASSIUM 4.5 4.2 4.4 - 4.1 4.1 4.0 CHLORIDE 101 102 100 - 101 100 102 CO2 27 25 25 - 26 27 26 BUN 21 20 21 - 17 15 15 CREATININE 0.82 0.80 0.89 - 0.80 0.74 0.75 GLUCOSE 218* 166* 191* - 146* 135* 126* CALCIUM 9.3 9.8 9.4 - 9.6 9.3 9.3 ALBUMIN - - - - 2.7* 2.7* 2.6* ALKPHOS - - - - 81 90 90 ALT - - - - 9 10 12 AST - - - - 14 14 17 TBIL - - - - 0.2 0.2 0.3 TPROT - - - - 7.8 8.2 7.8 EGFR >90 >90 >90 - >90 >90 >90 - = values in this interval not displayed. Evaluation: CT head 01/22: 1. No acute intracranial hemorrhage. 2. Involutional changes with chronic lacunar infarctions and ischemic microangiopathy. 3. Age indeterminate infarction left thalamus and less likely a sequela of trans-synaptic degeneration. MRI brain if there is concern for acute ischemia. CT head 01/23: No acute intracranial hemorrhage. Stable chronic findings. CT angio: Short segment severe, string-like stenosis of the lower basilar artery just above the vertebral confluence. Cerebral Angiogram Impression 01/23/2024: A severe stenosis in the proximal basilar artery, s/p successful balloon angioplasty. Residual stenosis about 50% in lateral view Echo: ??? Left??Ventricle: Left ventricle size is normal. Mildly to moderately increased wall thickness. Normal systolic function. EF 50-55%. Normal wall motion. Diastolic function is indeterminate. ??? Right??Ventricle: Right ventricle is not well visualized. ??? Aortic??Valve: Mild regurgitation. EKG: Results for orders placed or performed during the hospital encounter of 01/23/24 EKG 12-LEAD Result Value Ref Range Ventricular Rate 96 BPM Atrial Rate 96 BPM P-R Interval 146 ms QRS Duration ms 78 ms Q-T Interval ms 360 ms QTC Calculation (Bezet) 454 ms Calculated P [place] 79 degrees Calculated R [place] 76 degrees Calculated T [place] -77 degrees Interpretation EKG Normal sinus rhythm ST & T wave abnormality, consider inferolateral ischemia Abnormal ECG When compared with ECG of 26-JUL-2022 16:28, Premature ventricular complexes are no longer Present Non-specific change in ST segment in Anterior leads Inverted T waves have replaced nonspecific T wave abnormality in Inferior leads T wave amplitude has increased in Anterior leads Confirmed by JUSTICE PURVIS MD ([id number]) on 01/23/2024 2:35:44 PM Tele: Cardiac Rhythm: Sinus Rhythm (02/02/24 1215) LDL: Recent Labs Component Name 01/24/24 0443 07/23/20 0649 01/20/19 1134 LDLCALC 161* 173* 179* HgBA1C: Recent Labs Component Name 01/23/24 1039 09/17/23 1330 10/18/22 1045 HGBA1C 6.1* 6.5 5.9 This patient will benefit from a SGLT-2 or GLP-1, this requires close follow up with PCP or endocrine and lab monitoring. Due to this reason deferred treatment until outpatient follow up. Initial documented NIHSS Score: NIH Total: 13 (01/23/24 1048) Last Documented NIHSS Score: NIH Total: 15 (02/02/24 0800) Depression Screen Score = Does not meet criteria for screening: Aphasia PHQ-2 PHQ-9 Therapy Recommendations: Discharge Discharge Equipment Recommendations: To Be Determined (01/29/24 9222) OT Discharge Recommendations: Patient would benefit from intensive 3-hour multidisciplinary therapy(02/01/24 3422) This recommendation is made due to ongoing intensive OT functional needs: ability to actively participate in intensive therapy 3 hours/day, 5 days a week;patient has the need for more than one skilled therapy service;motivated to participate in therapy;not at baseline due to impaired ability to complete ADL's;functional mobility is significantly below baseline;likely to return to the community atdischarge with support system;patient and/or caregiver require specialized training;patient demonstrates a significant functional decline and would benefit from skilled therapy intervention to restore function;patient has the ability to progress and demonstrate measurable gains as a result of skilled therapy (02/01/24 1402) PT Discharge Recommendations: Patient would benefit from intensive 3-hour multidisciplinary therapy(02/01/241404) This recommendation is made due to ongoing intensive PT functional needs: patient has the ability to progress and demonstrate measurable gains as a result of skilled therapy (02/01/241404) Recommended Transportation Method: Stretcher/Ambulance (02/01/241404) Modified Mervin Score: Preadmission Modified [place] Score: 0 (01/26/24 0936) Current Modified [place] Score: 5 (02/01/241404) Procedures: Basilar artery??angioplasty 01/23/2024 PEG 01/30/24 IMPRESSION - Acute ischemic stroke: Posterior circulation syndrome - 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 - Statin: Lipitor - VTE prevention with SCDs and Heparin - Allow permissive HTN - Maintain euglycemia, SSI - Keppra 500 mg BID - Nutrition: NPO, PEG for nutrition and medication - PT/OT and speech therapy ongoing. - Replace magnesium - MVI, w/ thiamine and folic acid. Labs every 12 hours. Travis Bhat, MSN, CORPORATE FINANCIAL ANALYST, MERCHANDISE FLOW MANAGER-C, SCRN, CNRN Interventional Vascular Neurology [facility] [place] [facility] #[id number] ?? ATTESTATION I have seen and examined the patient with the nurse practitioner. I have re- confirmed the paula elements of the history and performed an examination. I have discussed the patient's care with the nurse practitioner. Patient seems to be getting less alert. He is requiring more suctions and O2 mask applied overnight. Exam shows lethargic patient, able to wake up and follow commands. He is weak in all limbs, weakeron the right side. I discussed the situation with the ICU team and he might need to be re intubatedand trached. Yessenia Kerr MD Interventional Vascular Neurology [facility] [place] Pager- [phone] Nurse Practitioner (ASCOM [id number]) ? * Christi Torres RCP - 02/02/2024 9:33 AM CDT Noninvasive ventilation order has been verified will continue to assess. Orders as follow CPAP +5 * Rosalee Reynaga RN - 02/02/2024 12:59 AM CDT Problem: Skin Integrity Goal: Skin integrity is maintained or improved Outcome: Progressing Note: RAZA VAZQUEZ will have no worsening or new skin breakdown this shift effective by turning. Turing necessity will be assessed due to patients functional status and Evan score. Problem: Neurological Deficit Goal: Neurological status is stable or improving Outcome: Progressing Problem: Hemodynamic Status/Cardiac Output Goal: Patient has stable vital signs and fluid balance Outcome: Progressing Note: RAZA VAZQUEZ will have vital signs within ordered parameters this shift * Lily Osorio RCP - 02/01/2024 11:54 PM CDT Noninvasive ventilation order has been verified will continue to assess. Orders as follow CPAP +5 Patient was placed on CPAP +5 but patient could not tolerate the mask on his face due to increased coughing. Patient was taken off CPAP. Patient is resting on room air comfortably, SPO2 92-95% at this time. RT will continue to monitor this pt. . * Yessenia Kerr MD - 02/01/2024 9:31 PM CDT INTERVENTIONAL STROKE NEUROLOGY PROGRESS NOTE Hospital Day: 9 A 63 year old male was admitted with PMH of DM, HTN, alcohol abuse who presented on 01/23/2024 10:27AM with chief complaint of unresponsiveness. He was found down at his home by the recharger person he had scheduled to visit his home today. His last known well was not clear. I spoke with his sister who said they had not seen or spoken to him in the last 24 hrs. He was able to follow some command upon arrival to the hospital but had a hard time moving his lower limbs. Suspicion of posterior circulation stroke was entertained. MRI brain stat was quickly obtained showing multiple infarcts in the brainstem including the left midbrain and left thalamus and right periventricular region. 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 Decision to take to IVRfor exploration and potential management. He was intubated in the ER for airway protection. CTH stable. Family reports L pupil has been larger for 2+months. Extubated 01/24. Reported seizure activity on 01/26, started on Keppra. No further seizure since. 02/01/2024: Patient up to chair, awake and interactive. PEG placed, TF restarted. Sister at bedside, updated on plan of care MEDICATIONS FOR CURRENT ENCOUNTER: SCHEDULED MEDICATIONS: 0.9% NaCl injection 3 mL, Intracatheter, q8h albuterol-ipratropium (Duo-Neb) nebulizer solution 3 mL, Inhalation, q6h amLODIPine (Norvasc) tablet 10 mg, Enteral Tube, QDAY aspirin chew tablet 81 mg, Enteral Tube, QDAY atorvastatin (Lipitor) tablet 80 mg, Enteral Tube, AT BEDTIME clopidogrel (plaVIX) tablet 75 mg, Enteral Tube, QDAY folic acid (Folvite) tablet 1 mg, Enteral Tube, QDAY heparin injection 5,000 Units, Subcutaneous, BID insulin aspart (NovoLOG) pen 0-18 Units, Subcutaneous, q6h levETIRAcetam (Keppra) tablet 500 mg, Enteral Tube, BID losartan (Cozaar) tablet 50 mg, Enteral Tube, AT BEDTIME modafinil (Provigil) tablet 200 mg, Enteral Tube, QAM multiple vitamins with minerals tablet 1 tablet, Enteral Tube, QDAY senna-docusate (Senokot-S) tablet 2 tablet, Enteral Tube, BID ??? thiamine (Vitamin B-1) tablet 100 mg, Enteral Tube, QDAY CONTINUOUS MEDICATIONS: ??? niCARdipine (Cardene) 50 mg in 0.9% NaCl IV 100 mL infusion, Intravenous, Continuous PRN MEDICATIONS: Or Or 0.9% NaCl injection 1-10 mL, Intracatheter, PRN acetaminophen (Tylenol) tablet 650 mg, Enteral Tube, q4h PRN dextrose 10 % IV bolus, Intravenous, PRN dextrose 10 % IV bolus, Intravenous, PRN glucagon (Glucagen) injection 1 mg, Subcutaneous, PRN hydrALAZINE (Apresoline) injection 10 mg, Intravenous, q1h PRN ondansetron (Zofran) injection 4 mg, Intravenous, q4h PRN ??? prochlorperazine (Compazine) injection 10 mg, Intravenous, q4h PRN Peripheral IV Left Antecubital (Active) Placement Date/Time: 01/23/24 1055 Size (Gauge): 18 G Orientation: Left Location: Antecubital Site Prep: Chlorhexidine Technique: Anatomical Landmarks Insertion attempts (FOR ED ONLY): 1 Number of days: 9 Peripheral IV Left Antecubital (Active) Placement Date/Time: 01/23/24 1136 Orientation: Left Location: Antecubital Site Prep: ChlorhexidineTechnique: Anatomical Landmarks Insertion attempts (FOR ED ONLY): 1 Number of days: 9 Enteral - Percutaneous Endoscopic Gastrostomy Abdomen;Midline;Upper (Active) Placement Date/Time: 01/30/24 1514 Placed by: Dr. Ruffin Type: Percutaneous Endoscopic Gastrostomy Tube Location: Abdomen;Midline;Upper Size (FR): 20 Lot Number: [id number] Procedure Tolerance: Sedated Number of days: 2 Condom Urinary Catheter 02/01/24 141 (Active) Placement Date/Time: 02/01/24 141 Size: Medium Procedure Tolerance: Well Number of days: 0 BP 136/95 (BP Location: Right arm, Patient Position: Lying) Pulse 99 Temp 99.6 ??F (37.6 ??C) (Axillary) Resp 21 Ht 1.93 m (6' 4 ) Wt 129 kg (284 lb 6.3 oz) SpO2 95% Wt Readings from Last 3 Encounters: 02/01/24 129 kg (284 lb 6.3 oz) 09/17/23 (!) 148.6 kg (327 lb 9.6 oz) 05/07/23 (!) 145.2 kg (320 lb) Multisystem Examination: Neck: ROM intact Respiratory: No respiratory distress. Cardiovascular: Normal heart rate, Normal rhythm. GI: Soft, No tenderness Integument: Warm, Dry Pupillometry Initial: NPI Left: 0 (01/23/241699) NPI Right: 4.1 (01/23/241699) Pupil Size Left (MM): 4.9 (01/23/241699) Pupil Size Right (MM): 2.38 (01/23/241699) Current: NPI Left: 0.7 (02/01/241999) NPI Right: 4.5 (02/01/241999) Pupil Size Left (MM): 4.47 (02/01/241999) Pupil Size Right (MM): 2.51 (02/01/241999) Neurological Examination: The patient is Awake, alert, and cooperative. He follows simple commands. Speech is expressive aphasia, dysarthric and soft. L Pupil is 3 mm R pupil is 3 mm Oculocephalic movements are present. Hearing intact. Motor: No involuntary movements were observed. Facial movements are asymmetric on the right. Strength is 3/5 in LUE, 3/5 RUE and 1/5 in the L LE and 1 in the R LE. Sensory: Facial and peripheral sensation are intact. Coordination: Unable to perform finger to nose. Gait: Not tested due to patient condition. Labs Recent Labs Component Name 01/24/24 0443 07/23/20 0649 01/20/19 1134 CHOL 229* 254* 258* TRIG 179* 179* 63 HDL 32* 48 63 LDLCALC 161* 173* 179* Recent Labs Component Name 02/01/24 1125 01/31/24 2257 01/31/24 1116 01/30/24 0429 01/29/24 0259 01/28/24 0341 SODIUM 137 136 137 139 140 139 POTASSIUM 4.4 4.1 4.4 4.1 4.1 4.0 CHLORIDE 100 101 101 101 100 102 CO2 25 26 23 26 27 26 BUN 21 19 17 17 15 15 CREATININE 0.89 0.87 0.80 0.80 0.74 0.75 GLUCOSE 191* 164* 119* 146* 135* 126* CALCIUM 9.4 9.4 9.6 9.6 9.3 9.3 ALBUMIN - - - 2.7* 2.7* 2.6* ALKPHOS - - - 81 90 90 ALT - - - 9 10 12 AST - - - 14 14 17 TBIL - - - 0.2 0.2 0.3 TPROT - - - 7.8 8.2 7.8 EGFR >90 >90 >90 >90 >90 >90 Evaluation: CT head 01/22: 1. No acute intracranial hemorrhage. 2. Involutional changes with chronic lacunar infarctions and ischemic microangiopathy. 3. Age indeterminate infarction left thalamus and less likely a sequela of trans-synaptic degeneration. MRI brain if there is concern for acute ischemia. CT head 01/23: No acute intracranial hemorrhage. Stable chronic findings. CT angio: Short segment severe, string-like stenosis of the lower basilar artery just above the vertebral confluence. Cerebral Angiogram Impression 01/23/2024: A severe stenosis in the proximal basilar artery, s/p successful balloon angioplasty. Residual stenosis about 50% in lateral view Echo: ??? Left??Ventricle: Left ventricle size is normal. Mildly to moderately increased wall thickness. Normal systolic function. EF 50-55%. Normal wall motion. Diastolic function is indeterminate. ??? Right??Ventricle: Right ventricle is not well visualized. ??? Aortic??Valve: Mild regurgitation. EKG: Results for orders placed or performed during the hospital encounter of 01/23/24 EKG 12-LEAD Result Value Ref Range Ventricular Rate 96 BPM Atrial Rate 96 BPM P-R Interval 146 ms QRS Duration ms 78 ms Q-T Interval ms 360 ms QTC Calculation (Bezet) 454 ms Calculated P [place] 79 degrees Calculated R [place] 76 degrees Calculated T [place] -77 degrees Interpretation EKG Normal sinus rhythm ST & T wave abnormality, consider inferolateral ischemia Abnormal ECG When compared with ECG of 26-JUL-2022 16:28, Premature ventricular complexes are no longer Present Non-specific change in ST segment in Anterior leads Inverted T waves have replaced nonspecific T wave abnormality in Inferior leads T wave amplitude has increased in Anterior leads Confirmed by JUSTICE PURVIS MD ([id number]) on 01/23/2024 2:35:44 PM Tele: Cardiac Rhythm: Sinus Rhythm (02/01/24 1615) LDL: Recent Labs Component Name 01/24/24 0443 07/23/20 0649 01/20/19 1134 LDLCALC 161* 173* 179* HgBA1C: Recent Labs Component Name 01/23/24 1039 09/17/23 1330 10/18/22 1045 HGBA1C 6.1* 6.5 5.9 This patient will benefit from a SGLT-2 or GLP-1, this requires close follow up with PCP or endocrine and lab monitoring. Due to this reason deferred treatment until outpatient follow up. Initial documented NIHSS Score: NIH Total: 13 (01/23/24 1048) Last Documented NIHSS Score: NIH Total: 17 (02/01/24 0800) Depression Screen Score = Does not meet criteria for screening: Cognitive Impairment PHQ-2 PHQ-9 Therapy Recommendations: Discharge Discharge Equipment Recommendations: To Be Determined (01/29/24 4270) OT Discharge Recommendations: Patient would benefit from intensive 3-hour multidisciplinary therapy(02/01/24 140) This recommendation is made due to ongoing intensive OT functional needs: ability to actively participate in intensive therapy 3 hours/day, 5 days a week;patient has the need for more than one skilled therapy service;motivated to participate in therapy;not at baseline due to impaired ability to complete ADL's;functional mobility is significantly below baseline;likely to return to the community atdischarge with support system;patient and/or caregiver require specialized training;patient demonstrates a significant functional decline and would benefit from skilled therapy intervention to restore function;patient has the ability to progress and demonstrate measurable gains as a result of skilled therapy (02/01/24 140) PT Discharge Recommendations: Patient would benefit from intensive 3-hour multidisciplinary therapy(02/01/241404) This recommendation is made due to ongoing intensive PT functional needs: patient has the ability to progress and demonstrate measurable gains as a result of skilled therapy (02/01/241404) Recommended Transportation Method: Stretcher/Ambulance (02/01/241404) Modified [place] Score: Preadmission Modified [place] Score: 0 (01/26/24 0936) Current Modified [place] Score: 5 (04/19/24 1405) Procedures: Basilar artery??angioplasty 01/23/2024 PEG 01/30/24 IMPRESSION - Acute ischemic stroke: Posterior circulation syndrome - 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 - Statin: Lipitor - VTE prevention with SCDs and Heparin - Allow permissive HTN - Maintain euglycemia, SSI - Keppra 500 mg BID - Nutrition: NPO, PEG for nutrition and medication - PT/OT and speech therapy ongoing. - Replace magnesium - MVI, w/ thiamine and folic acid. Labs every 12 hours. Yessenia Kerr MD Interventional Vascular Neurology?? [facility] [place] Pager- [phone] Nurse Practitioner (ASCOM [id number]) ? * Bianca Emery RN - 02/01/2024 5:17 PM CDT Problem: Pain/Discomfort Goal: Patient exhibits reduced pain/discomfort as evidenced by pain scores Outcome: Progressing Goal: Patient uses pharmacological and non-pharmacological pain management strategies. Outcome: Progressing Goal: Patient verbalizes acceptable level of pain relief and ability to engage in desired activity. Outcome: Progressing Problem: Mechanical Ventilation Goal: Patent airway Outcome: Completed Goal: Oral health is maintained or improved Outcome: Completed Goal: ET tube will be managed safely Outcome: Completed Goal: Ability to express needs and understand communication Outcome: Completed Goal: Mobility/activity is maintained at optimum level for patient Outcome: Completed * Luz Moser PT - 02/01/2024 4:10 PM CDT Physical Therapy Treatment PT orders received. Chart reviewed for diagnosis and medical systems review. Nursing consented for PT. Explained purpose of PT and patient consented to participate in therapy. A??63 year old??male??was admitted with PMH of DM, HTN, alcohol abuse??who presented on 01/23/2024 10:27 AM??with chief complaint of unresponsiveness.??He was found down at his home by the recharger person he had scheduled to visit his home today. His last known well was not clear. I spoke with his sister who said they had not seen or spoken to him in the last 24 hrs. He??was able to follow some command upon arrival to the hospital but had a hard time moving his lower limbs. Suspicion of posterior circulation stroke was entertained. MRI brain stat was quickly obtained showing multiple infarcts in the brainstem including the left midbrain and left thalamus and right periventricular region. 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 Decision to taketo IVR for exploration and potential management. He was intubated in the ER for airway protection.??CTH stable. Family reports L pupil has been larger for 2+months. Extubated 01/24. ??Reported seizureactivity on 01/26, started on Keppra. ??No further seizure since. -??Acute ischemic stroke: Posterior circulation syndrome -Critical Basilar stenosis/thrombosis s/p successful angioplasty Precautions: Fall, SBP 120-180, PEG, condom cath RECOMMENDATIONS/PLAN: continue EOB sitting balance, combilizer standing or Travis Flex? Discharge PT Discharge Recommendations: Patient would benefit from intensive 3-hour multidisciplinary therapy This recommendation is made due to ongoing intensive PT functional needs: patient has the ability to progress and demonstrate measurable gains as a result of skilled therapy Recommended Transportation Method: Stretcher/Ambulance PPE worn by staff: gloves AM-PAC Basic mobility score for this patient is Mobility Raw Score:: 6 SUBJECTIVE: drowsy, responds with repeated cues Pt educated in PT plan of care, fall precautions, and benefits of OOB activity. Pain Assessment: Pain Scale/Observation: Faces Pain Rating Score #1: 0 OBJECTIVE: Cognition: Orientation Level: Oriented to Person;Disoriented to Time;Disoriented to Situation;Disoriented to Place Level of Consciousness-Adult: Drowsy;Eyes Open Spontaneously Cognition: Follows Commands-inconsistent;Follows one step commands;Processing-delayed Participation: Active Participation Bed Mobility: Supine to Sit: Total Assistance;X 2 Sit to Supine: Total Assistance;X 2 Transfers: deferred OOB d/t low BP Balance: Poor+ -Fair- static sitting EOB Vision: R pupil not tracking, Ptosis L ROM and Strength: All extremities except weak R UE/LE 1/5 (processing?) Coordination: Unable d/t AMS Exercises: bilat UE/LE WB activities, visual stimulation, ROM, sitting balance Activity Tolerance and O2 Requirements: Room air Vital Signs: Semi villegas SBP 120 After 15 mins sitting EOB SBP 80 (MAP 64) Modified [place] Score: Current Modified Mervin Score: 5 ASSESSMENT: Pt presents more drowsiness today vs yesterday. Still requires increased assistance formobility, but noted some initiation today transferring towards the L side of the bed vs R from lastsession. Pt appears to be attempting to correct posture and balance sitting intermittently able to hold balance when challenged. Tolerated WB activities and noted pt fatigue towards the end of his sitting time for 15 mins and noted drop of SBP 80s with MAP 64 therefore returning pt back to bed with BP recovering. Overall, no change in vision (R pupil still not tracking), R codie UE/LE, impaired processing, limited wakefulness, unstable BP (orthostatic) but responds to therapy and may need rehab placement to address these impairments. Refer to Plan of Care for PT goals. Call light and phone in reach . All lines, monitors, IV's, equipment in place and intact pre and post visit. RN, notified of patient's performance/location end of session. If this is the last PT visit, this note serves as the discharge summary. Luz PT, CCI [phone] * Marlyn Garza, RT(R) - 02/01/2024 3:36 PM CDT Patient c/o on schedule neb tx as ordered . Tolerated well. * Leigh Gonzalez, OT - 02/01/2024 3:30 PM CDT Occupational Therapy Treatment Summary: Chart reviewed for diagnosis and medical systems review. Nursing consented for OT. Explained purpose of OT and patient consented to participate in therapy. RECOMMENDATIONS/PLAN: Continue to progress with EOB and use of combilizer for standing activity. Address pt's inattention to left side. Continue visual assessments. OT Discharge Recommendations: Patient would benefit from intensive 3-hour multidisciplinary therapy This recommendation is made due to ongoing intensive OT functional needs: ability to actively participate in intensive therapy 3 hours/day, 5 days a week;patient has the need for more than one skilled therapy service;motivated to participate in therapy;not at baseline due to impaired ability to complete ADL's;functional mobility is significantly below baseline;likely to return to the community atdischarge with support system;patient and/or caregiver require specialized training;patient demonstrates a significant functional decline and would benefit from skilled therapy intervention to restore function;patient has the ability to progress and demonstrate measurable gains as a result of skilled therapy Recommended Transportation Method: Stretcher/Ambulance PPE worn by staff: gloves PPE worn by patient: gown - patient, clean;socks - clean AM-PAC Daily is Daily Activity Raw Score:: 7 Precautions: Fall Skin PIV x 2 NG Condom catheter SBP 120-180 O2 92%< SUBJECTIVE: Pt presented semi-villegas's in bed this date. Pt demo increased fatigue and drowsiness compared to yesterday's session. Pt unable to verbalize answers to prompts, but was observed to nieves mhm . Psychosocial: Patient Behaviors: Calm;Cooperative Patient's Goal for the Day: Not reported Pain Assessment: Pain Location #1 Pain Scale/Observation: Behaviors Pain Rating Score #1: 0 Sedation Level #1: 1-Awake and alert OBJECTIVE: Cognition: Orientation Level: Oriented to Person;Disoriented to Time;Disoriented to Situation;Disoriented to Place Cognition: Follows Commands-inconsistent;Processing-delayed;Judgement-decreased;Attention/concentra tion-decreased ADLs/Functional Mobility: Bed Mobility: Supine to Sit: Total Assistance;X 2 Sit to Supine: Total Assistance;X 2 Transfers: Sit to Stand: Activity Does Not Occur Stand to Sit: Activity Does Not Occur Type of Transfer: Lateral Transfer Basic ADL: observation/clinical judgement Feeding: Total Assistance (NG) Oral Facial Hygiene: Maximal Assistance Bathing: Total Assistance Upper Body Dressing: Total Assistance Lower Body Dressing: Total Assistance Toileting: Total Assistance RUE Assessment: RUE Assessment AROM - Right Upper Extremity: Exceptions PROM - Right Upper Extremity: Within Functional Limits Strength - Right Upper Extremity: Exceptions Tone - Right Upper Extremity: Exceptions General RUE Tone: Hypotonic-Moderate Sensation - Right Upper Extremity: Within Normal Limits Military Equipment Specialist Strength - Right Upper Extremity: 10/19 LUE Assessment: LUE Assessment AROM - Left Upper Extremity: Exceptions PROM - Left Upper Extremity: Within Functional Limits Strength - Left Upper Extremity: Exceptions Tone - Left Upper Extremity: Within Functional Limits Sensation - Left Upper Extremity: Within Normal Limits Military Equipment Specialist Strength - Left Upper Extremity: 12/17 Functional Level of Impairment: Functional Level of Comprehension: Moderate assistance (moderate prompting) pt expends 50-74% effort Functional Level of Expression: Moderate assistance (moderate prompting) pt expends 50-74% effort Functional Level of Social Interaction: Moderate assistance (moderate prompting) pt expends 50-74% effort Functional Level of Memory: Maximal assistance (maximum prompting) pt expends 25-49% effort Functional Level of Problem Solving: Maximal assistance (maximum prompting) pt expends 25-49% effort Vital signs: BP taken on R UE Before mobility During mobility BP 120/82 (94) 82/55 (64) HR (bpm) 96 102 RR (breaths/min) 22 32 SpO2 (%) 95 92 LPM 0 0 O2 source Room Room Position Semi-villegas's EOB Notes from Vital Signs: Pt unable to report SOB, lightheadedness, or dizziness during this 's session. Activity tolerance/Oxygen Therapy: Activity Tolerance: Requires rest breaks $ O2 DEVICE: Room Air Modified [place] Score Current Modified [place] Score: 5 ASSESSMENT: Pt consented to complete this 's OT treatment session. OT observed and assessed pt's vitals, ROM and strength of B UE, functional transfers and mobility, LB dressing, bed mobility. Ptcontinues to receive total A for bed mobility (2-3 person assist). Pt demo minimal posture control while EOB, noting left vertical deviation. Pt tolerated sitting EOB 10< minutes this date, while participating in B UE and LE weight bearing activities. Via painful stimuli, pt's sensation is intact within B UE and LE this date. Pt demo inability to track visual stimuli, noting some inattention to pt's left side. Pt continues to present with ptosis of L eye. Session ended with pt returning to bed with total A x3. Pt's B SCD's and heel boots donned, ensuring pt's R LE is not resting against FOB. Pt presents functional deficits in ADL tasks, mobility, transfers, activity tolerance, endurance,strength, cognition, which prevent them from returning to PLOF. Pt agreeable to continued OT services, and would benefit from continued skilled OT services to increase functional performance and independence to increase quality of life. Please refer to the Filed Flowsheet for further details. Call light and phone in reach with pt high villegas's (seated) position in bed. All lines, monitors, IV's, equipment in place and intact pre and post visit. RN, MIGDALIA, notified of patient's performance/location end of session. Educated patient/family in OT plan of care, role, functional re-training for tasks, and need for ongoing OT services. If this is the last OT visit, this note serves as the discharge summary. Kerry OTR/L X [phone] * Linda Carson SLP - 02/01/2024 2:50 PM CDT Speech Pathology: Attempted to see pt for follow-up. Pt unable to maintain adequate alertness to participate in therapy session. Will reattempt at a later time/date. Linda Tamez MS [facility] CONSULTANT [phone] * Jeff Ruffin MD - 02/01/2024 1:10 PM CDT GI Progress Note Patient's Name : Raza Vazquez Follow-up PEG placed on January 30, 2024, vertebral CVA Subjective Sitting up in a chair. Remains altered mental status. Tolerating tube feeds via PEG. No residuals or diarrhea reported. Hemoglobin 12 Constitutional: No fatigue, weight loss, malaise and anorexia, Respiratory: NO shortness of breath, dyspnea on exertion and acute cough, Cardiovascular: No palpitations, chest pain, Gastrointestinal: Per HPI Genitourinary: No dysuria, frequency Skin: No rash Objective General appearance: alert, cooperative, no distress Head and neck. No JVD, No enlarged lymph nodes or thyromegaly Lungs: breath sounds normal and symmetric; no rales or wheezes Heart: regular rhythm, normal S1 and S2, without murmurs, gallops or rubs Abdomen: soft without mass, non-tender, with normal bowel sounds G-tube site looks okay Extremities: no clubbing, cyanosis or edema Data BP 140/90 (BP Location: Right arm, Patient Position: Lying) Pulse 97 Temp 98.1 ??F (36.7 ??C) (Axillary) Resp (!) 32 Ht 1.93 m (6' 4 ) Wt 129 kg (284 lb 6.3 oz) SpO2 95% Intake/Output Summary (Last 24 hours) at 02/01/2024 1310 Last data filed at 02/01/2024 1215 Gross per 24 hour Intake 939 ml Output 715 ml Net 224 ml Recent Labs Component Name 01/30/24 0429 01/29/24 0259 01/28/24 0341 WBC 10.0 10.5 8.5 HGB 12.4* 12.6* 11.8* HCT 38.7 40.0 37.2* PLTCOUNT 289 319 293 Recent Labs Component Name 02/01/24 11201/31/247 01/31/24 1116 01/30/24 0429 SODIUM 137 136 137 139 POTASSIUM 4.4 4.1 4.4 4.1 CHLORIDE 100 101 101 101 CO2 25 26 23 26 BUN 21 19 17 17 CREATININE 0.89 0.87 0.80 0.80 GLUCOSE 191* 164* 119* 146* CALCIUM 9.4 9.4 9.6 9.6 ALBUMIN - - - 2.7* ALKPHOS - - - 81 ALT - - - 9 AST - - - 14 TBIL - - - 0.2 TPROT - - - 7.8 EGFR >90 >90 >90 >90 No results for input(s): MAGMGDL in the last 18504 hours. Recent Labs Component Name 02/01/24 1125 01/31/24225601/31/24 1319 PHOS 4.0 4.2 3.8 No results for input(s): AMYLASE in the last 83981 hours. No results for input(s): LIPASE in the last 55341 hours. Recent Labs Component Name 01/23/24 1039 07/26/22 1653 01/25/18 0026 PT 13.3 14.1 14.2 Recent Labs Component Name 01/23/24 1045 01/23/24 1039 07/26/22 1653 INR 1.1 1.0 1.1 Recent Labs Component Name 01/23/24 1039 01/24/18 1540 01/24/18 1345 PTT 28.3 35.7 >212.0* MEDICATIONS FOR CURRENT ENCOUNTER: SCHEDULED MEDICATIONS: 0.9% NaCl injection 3 mL, Intracatheter, q8h albuterol-ipratropium (Duo-Neb) nebulizer solution 3 mL, Inhalation, q6h amLODIPine (Norvasc) tablet 10 mg, Enteral Tube, QDAY aspirin chew tablet 81 mg, Enteral Tube, QDAY atorvastatin (Lipitor) tablet 80 mg, Enteral Tube, AT BEDTIME clopidogrel (plaVIX) tablet 75 mg, Enteral Tube, QDAY folic acid (Folvite) tablet 1 mg, Enteral Tube, QDAY heparin injection 5,000 Units, Subcutaneous, BID insulin aspart (NovoLOG) pen 0-18 Units, Subcutaneous, q6h levETIRAcetam (Keppra) tablet 500 mg, Enteral Tube, BID losartan (Cozaar) tablet 50 mg, Enteral Tube, AT BEDTIME modafinil (Provigil) tablet 200 mg, Enteral Tube, QAM multiple vitamins with minerals tablet 1 tablet, Enteral Tube, QDAY senna-docusate (Senokot-S) tablet 2 tablet, Enteral Tube, BID thiamine (Vitamin B-1) tablet 100 mg, Enteral Tube, QDAY ?? [COMPLETED] magnesium sulfate 2 g in 50 mL bolus, Intravenous, Once CONTINUOUS MEDICATIONS: ?? niCARdipine (Cardene) 50 mg in 0.9% NaCl IV 100 mL infusion, Intravenous, Continuous PRN MEDICATIONS: Or Or 0.9% NaCl injection 1-10 mL, Intracatheter, PRN acetaminophen (Tylenol) tablet 650 mg, Enteral Tube, q4h PRN dextrose 10 % IV bolus, Intravenous, PRN dextrose 10 % IV bolus, Intravenous, PRN glucagon (Glucagen) injection 1 mg, Subcutaneous, PRN hydrALAZINE (Apresoline) injection 10 mg, Intravenous, q1h PRN ondansetron (Zofran) injection 4 mg, Intravenous, q4h PRN ?? 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 Watch for bleeding Keep binder over PEG suppression does not pull it out Probably will need rehab after discharge from the hospital GI will see as needed ?? History of alcohol abuse. Continue thiamine ?? Diabetes, dyslipidemia hypertension Continue Norvasc, Cozaar, atorvastatin ?? Seizures Continue Keppra ?? Hypertension continue amlodipine Over 35 minutes of face to face time and non face to face time was spent in the management and careof this patient. Jeff Ruffin MD [facility] Health Care Office [phone] * Annamarie Bonilla RN - 02/01/2024 9:39 AM CDT Care Coordination Progress Note ?? 01/23/2024 Pt BIBEMS from home, he was found unresponsive by an recharger. Unknown LKW. Pt was found covered in urine with a nearby handle of vodka that was empty.??Pt was hypoxic for ems so was placed on 2L and a nasal airway was placed and the pt's mental status has improved en route. Code stroke was called in the ED, pt intubated and taken to MRi brain stat showing multiple infarcts in the brainstem including the left midbrain and left thalamus and right periventricular region. 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 Decision to take to IVR for exploration and potential management. (Ezepue). IVR procedure showed proximal basilar artery stenosis, angioplasty to 50%. Dissection to right distal vertebral artery.?? 01/22: Admitted to ICU 01/23: following simple commands. 01/24: Extubated 01/27: okay to transfer to [address] [place] [address] 01/29: s/p EGD with PEG placement. Pt remains in ICU room 343 01/31- Received a PC from christi Vazquez, the pt's dgtr requesting Medicaid. I explained the process, I would submit a referral to [employer] [facility] for a screening. This CM sent an email to the [facility] team with this request. Anticipated level of care at discharge: Acute Rehab Facility Anticipated level of care provider: [facility] Anticipated Discharge Date: 02/07/24 Transportation at Discharge: other (TBD) Orientation Level: Disoriented to Situation;Disoriented to Time;Oriented to Person;Oriented to Place Family Support (Name and Phone): Extended Emergency Contact Information Primary Emergency Contact: Christi Vazqeuz Mobile Relation: Daughter Secondary Emergency Contact: Carol Vazquez [facility] Relation: Sister READMISSION RISK SCORE is 17 at 10:44 AM 02/01/2024. Portions of this note have been copied from the medical record, but edited appropriately to accurately reflect the patient's current clinical state. Annamarie Bonilla RN Case Management - ICU 3N & 3S [facility] Ascom: [phone] O: [phone] * Marlyn Garza, RT(R) - 02/01/2024 8:47 AM CDT Noninvasive ventilation order has been verified will continue to assess. Orders as follow ?? CPAP 5 cmH2O * Linda Junior, GEORGES/LDN - 02/01/2024 8:12 AM CDT Nutrition Re-Assessment Brief Synopsis: Patient at Nutrition Risk and meets criteria for Severe Protein Calorie malnutrition. Patient identified at risk for Refeeding Syndrome. Weight Change: Weight Loss: > or equal to 2% x 1 week Energy Intake: < 50% of estimated energy requirement for > 5 days Fat Loss Identified: none Muscle Loss Identified: none-mild Nutrition Plan: ??? Increase Osmolite from 30 ml/hr q6hr till a goal of 60 ml/hr. This will provide 1728 kcals, 80 g PRO, 1180 ml free water at goal. ??? RD to monitor tolerance and advance if stable (increase by 33% of goal every 1-2 days). ??? Scale weights daily. Recommendations to Physician: ?? Monitor Potassium, Magnesium and Phosphorus levels Q12hr for at least 3 days. ?? Vitamin supplementation: - 100 mg thiamine daily for 5-7 days - 1 mg folic acid daily for 5-7 days - MVI daily for 10 days Discharge Needs: none at this time Patient Summary: Pt seen for reassessment. TF restarted of osmolite 30 ml/hr. Vitamin supplements ordered and given yesterday. Mg replaced yesterday. 1.7. Phos 4.2. K 4.1. Messaged MD and MERCHANDISE FLOW MANAGER about increasing TF slowly to 60 ml/hr. No BM since 01/27. NETWORK RELATIONS CONSULTANT recommendations NPO. Assessment: Med/Surg History and Clinical Diagnoses: Multiple brainstem infarcts, acute respiratory failure, hypotension, poorly controlled DM, alcohol use disorder; Hx: DM2, CAD, CABG 2018, anemia, HLD, obesity Diet order accuracy Current diet order: NPO Current tube feeding order: Osmolite @ 30 ml/hr. This provides 864, 40 g pro, 590 ml free water Nutrition recommendation: alter/change nutrition order Food Allergies: No known food allergies P.O.Intake for the past 48 hrs:No data recorded GI Concerns: Constipation (no BM since admission; episodes of vomiting on 01/23) Chewing/Swallowing:Other (Comment) (NPO post extubation) Pain affecting intake: No Admission weight: Weight: 136.1 kg (300 lb) (01/23/24 1055) Weight Method : Stated (01/23/24 1055) Patient Vitals for the past 336 hrs: Weight Weight Method 02/01/24 0400 129 kg (284 lb 6.3 oz) Bed scale 01/31/24 0400 130.5 kg (287 lb 11.2 oz) Bed scale 01/30/24 0300 121.5 kg (267 lb 13.7 oz) Bed scale 01/29/24 0400 133 kg (293 lb 3.4 oz) Bed scale 01/28/24 0400 135 kg (297 lb 9.9 oz) Bed scale 01/26/24 0430 133 kg (293 lb 3.4 oz) Bed scale 01/25/24 0243 131 kg (288 lb 12.8 oz) Bed scale 01/24/24 0928 (!) 142.4 kg (314 lb) -- 01/24/24 0400 (!) 142.5 kg (314 lb 2.5 oz) Bed scale 01/23/24 1700 136 kg (299 lb 13.2 oz) Bed scale 01/23/24 1055 136.1 kg (300 lb) Stated BMI: Body mass index is 34.62 kg/m??. BMI Range: Severely Obese Class 2 WT Comments: reviewed Laboratory values reviewed. Recent Labs Component Name 01/31/24225601/31/24 1116 01/30/24 0429 07/26/22 1653 12/24/19 0923 09/06/18 0318 09/04/18 0956 SODIUM 136 137 139 - 136 135* 135* POTASSIUM 4.1 4.4 4.1 - 4.0 3.5 4.1 CHLORIDE 101 101 101 - 101 100 102 CO2 26 23 26 - 29 28 28 BUN 19 17 17 - 11 14 9 CREATININE 0.87 0.80 0.80 - 0.97 0.97 0.88 GLUCOSE 164* 119* 146* - 187* 141* 126* CALCIUM 9.4 9.6 9.6 - 8.6 8.5 8.4* EGFR >90 >90 >90 - 84 >60 >60 EGFRAFR - - - - 97 >60 >60 - = values in this interval not displayed. Recent Labs Component Name 01/31/24225601/31/24 1319 01/31/24 1116 MAGNESIUM 1.7 1.3* 1.4* Recent Labs Component Name 01/31/24225601/31/24 1319 01/30/24 0429 PHOS 4.2 3.8 3.7 Medications noted. Skin/Wound: Exceptions per nursing assessment (swollen) Estimated Energy Needs: KCAL: 3007-9789 kcal/day (25-30 kcal/kg IBW) Protein (g): 137-165 g pro/day (1.5-1.8 g/kg IBW) Fluid (ml): Other (comments) (per MD) Needs based on: Kcal/kg- (Comment) (91.8 kg IBW) Recommended Access Route: TF Education needed: Stroke Nutrition Therapy Education Provided: Prior to Discharge (if appropriate) Nutrition Care Process (1) Nutrition Diagnostic Statement: Inadequate oral intake related to:: decreased ability to consume or tolerate food and/or fluids due to illness as evidenced by:: --- (NPO) Nutrition Intervention: Enteral nutrition: Monitoring: - Nutrition support - Weight, labs. - Nursing to monitor/document edema and I/O. Evaluation: Diagnostic Statement #1 Goals: Nutrition Goal: Enteral/Parenteral Nutrition prescription will be consistent with estimated nutrient needs Nutrition Goal Timeframe: Throughout stay Nutrition Goal Progress: Progressing toward goal * Irma Kearns RCP - 02/01/2024 12:41 AM CDT Noninvasive ventilation order has been verified will continue to assess. Orders as follow ?? CPAP 5 cmH2O * Rosalee Reynaga RN - 01/31/2024 10:34 PM CDT Problem: Fall Risk Goal: Patient will remain free of falls Outcome: Progressing Flowsheets (Taken 01/31/20242232) Safe Room Set Up Verified: Yes - I attest safe room set up is verified Note: RAZA VAZQUEZ will have no falls this shift effective by frequent rounding and bed alarm when clinically relevant. Problem: Skin Integrity Goal: Skin integrity is maintained or improved Outcome: Progressing Note: RAZA VAZQUEZ will have no worsening or new skin breakdown this shift effective by turning. Turing necessity will be assessed due to patients functional status and Evan score. Problem: Neurological Deficit Goal: Neurological status is stable or improving Outcome: Progressing Problem: Hemodynamic Status/Cardiac Output Goal: Patient has stable vital signs and fluid balance Outcome: Progressing Note: RAZA VAZQUEZ will have vital signs within ordered parameters this shift * Hamlet Patel RN - 01/31/2024 6:54 PM CDT Shift Summary Nursing [facility] 3S ICU Room: 01/31/24 Patient: Raza Vazquez Sex: male Age: [age] year old : 1960 [facility]#: [id number] Height: 193 cm (6' 4 ) Weight: 130.5 kg (287 lb 11.2 oz) Body mass index is 35.02 kg/m??. Code Status: Full Code Admit: 01/23/2024 Hospital Day: 8 Attending: Yessenia Kerr MD Unit: [address] ICU Allergies Allergen Reactions ??? Lisinopril Angioedema ??? Pcn [Penicillins] Swelling eyes swelled shut 50 years ago ??? Penicillin V Rash Safety concerns: Choose Restraint type: Non-Violent Non-Violent Restraint Type Soft Wrist - Bilateral (NV): DISCONTINUED Past Medical/surgical History Past Medical History: Diagnosis Date ??? Anemia 01/2018 ??? Asthma ([facility]) ??? Chest congestion 08/05/2020 ??? Confusional arousals 08/05/2020 ??? Controlled type 2 diabetes mellitus without complication, without long-term current use of insulin ([facility]) 09/28/2011 ??? 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 Cough syncope 2017 ??? Daytime sleepiness 08/05/2020 ??? Essential hypertension 01/23/2018 ??? Hyperlipidemia 08/05/2020 ??? Inadequate sleep hygiene 08/05/2020 ??? Morbid obesity with BMI of 40.0-44.9, adult ([facility]) 08/05/2020 ??? Nocturia 08/05/2020 ??? Obesity (BMI 30-39.9) 04/24/2012 ??? Other chest pain 09/04/2018 ??? S/P CABG x 3 01/24/2018 ??? Snoring 08/05/2020 ??? Superficial postoperative wound infection 02/23/2018 sternum ??? Wears glasses 08/05/2020 ??? Weight gain 08/05/2020 40# past 6-8 months-covid ??? Wound of sternal region 02/23/2018 Past Surgical History: Procedure Laterality Date ??? COLONOSCOPY N/A 11/12/2020 N/A; COLONOSCOPY SCREEN ??? Coronary Artery Bypass Graft N/A 01/24/2018 N/A; Coronary artery bypass graft x 3 ??? ENDOSCOPY, UPPER N/A 01/30/2024 N/A; ESOPHAGOGASTRODUODENOSCOPY (EGD) WITH PEG PLACEMENT ??? Tonsillectomy Vitals Temp: 98.8 ??F (37.1 ??C) Temp Source: Oral Pulse: 97 Heart Rate Source: Monitor Resp: 29 BP: 150/93 MAP: 112 Arterial Line BP #1: 195/99 Art Line MAP #1: 133 mmHg Patient Vitals for the past 6 hrs: Temp Pulse Resp BP 01/31/24 1845 -- 97 29 -- 01/31/24 1830 -- 96 (!) 34 -- 01/31/24 1815 -- 93 27 -- 01/31/24 1800 -- 95 31 150/93 01/31/24 1745 -- 97 28 -- 01/31/24 1730 -- 90 (!) 33 -- 01/31/24 1715 -- 91 (!) 33 -- 01/31/24 1700 -- 92 (!) 37 136/83 01/31/24 1645 -- 94 (!) 37 -- 01/31/24 1630 -- 91 (!) 35 -- 01/31/24 1615 -- 92 (!) 36 -- 01/31/24 1600 98.8 ??F (37.1 ??C) 96 (!) 34 123/80 01/31/24 1545 -- 98 (!) 33 -- 01/31/24 1530 -- 98 (!) 33 -- 01/31/24 1515 -- 100 (!) 33 140/87 01/31/24 1500 -- 100 (!) 38 -- 01/31/24 1450 -- 99 26 -- 01/31/24 1445 -- 99 26 -- 01/31/24 1430 -- 100 24 -- 01/31/24 1415 -- 98 (!) 34 -- 01/31/24 1400 -- 99 (!) 36 144/89 01/31/24 1345 -- 100 30 -- 01/31/24 1330 -- 101 28 -- 01/31/24 1315 -- 96 31 -- 01/31/24 1300 -- 97 (!) 34 132/94 Neurological Neurological Level of Consciousness-Adult: Drowsy;Eyes Open Spontaneously (Simultaneous filing. User may not have seen previous data.) Orientation Level: Oriented to Person;Disoriented to Time;Disoriented to Situation;Disoriented to Place (Simultaneous filing. User may not have seen previous data.) Cognition: Follows Commands-Consistent;Attention/concentration-decreased;Processing-delayed;Judgeme nt-decreased;Safety awareness-decreased (Simultaneous filing. User may not have seen previous data.) Speech: Slurred;Aphasic-expressive Vision: Partial hemianopia Pupil Size Right (MM): 2 Pupil Assessment Right: Brisk;Round Pupil Size Left (MM): 4 Pupil Assessment Left: Brisk;Round Facial symmetry: Right facial drooping RASS: RASS : Drowsy - Not fully alert, but has sustained awakening (eye- opening/eye contact) to voice (10 seconds or greater) to verbal stimulation Last Known Well: Initial documented NIHSS Score: NIH Total: 13 (01/23/24 1048) Last Documented NIHSS Score: NIH Total: 19 (01/31/24 0800) Neuromuscular Neuromuscular Motor Response RUE: Responds to commands Motor Function RUE: Cannot Overcome Resistance Sensation RUE: Normal;No numbness;No tingling Motor Response LUE: Responds to commands Motor Function LUE: Cannot Overcome Resistance Sensation LUE: Normal;No numbness;No tingling Motor Response RLE: Responds to commands Motor Function RLE: Cannot Overcome Resistance Sensation RLE: Normal;No numbness;No tingling Motor Response LLE: Responds to commands Motor Function LLE: Cannot Overcome Resistance Sensation LLE: Normal;No numbness;No tingling Ataxia: Absent Cardiac Cardiac Monitoring Cardiac Rhythm: Sinus Rhythm Ectopy: None Ectopy Frequency: Occasional Respiratory SPO2: SpO2: 95 % Monitor: Liters Per Minute: O2 L/M: 0 FIO2: O2 % (FiO2): 21 % Device: $ O2 DEVICE: Room Air O2 % (FiO2): 21 % $ O2 DEVICE: Room Air Incentive Spirometry Volume: # Attempts: Performance: Gastric Intestinal Orders Placed This Encounter Procedures ??? DIET NPO Except: NO EXCEPTIONS Hold tube feeding after midnight Standing Status: Standing Number of Occurrences: 1 Order Specific Question: Except Answer: NO EXCEPTIONS ??? DIET TUBE FEEDING CONTINUOUS Standing Status: Standing Number of Occurrences: 1 Order Specific Question: Formula Type? Answer: OSMOLITE 1.2 KESHA (STANDARD LOW RESIDUE) Order Specific Question: Route? Answer: PEG/G TUBE Order Specific Question: Goal Feeding (ml/hr): Answer: 30ML Order Specific Question: Flush Frequency: Answer: Every 6 hours Order Specific Question: Free Water Flush Amount in ml: Answer: 50 Order Specific Question: Protein Additives: Answer: 1 PROTEIN FLUSH/FEEDING TUBE DAILY Order Specific Question: Initial Rate (ml/hr): Answer: 30 DIET NPO Except: NO EXCEPTIONS DIET TUBE FEEDING CONTINUOUS Last BM (Date): 01/28/24 Feeding: LBM: Last BM (Date): 01/28/24 Bowel Patern: Bowel Sounds: Bowel Sounds (All Quadrants): Active Stool Assessment Bowel Incontinence: No Stool Appearance : Loose;Mucous Stool Color : Yellow Stools (# of stools): 0 Stool Amount: Medium Urinary Urinary Urine Color: Yellow Urine Appearance: Clear Urine Odor: No Odor Urinary Symptoms: Catheter $ Bladder Scan Pre Void Volume: 246 ML [REMOVED] Condom Urinary Catheter 01/26/24 1441-Urine Output (catheter): 300 [REMOVED] External Urinary Device 01/27/24 1000-Urine Output (catheter): 150 [REMOVED] Indwelling Transurethral Urinary Catheter-Urine Output (catheter): 150 Intake/Output Date 01/30/24 1500 - 01/31/24 0659 01/31/24 0700 - 02/01/24 0659 Shift 3438-1093 6263-1333 24 Hour Total 2802-8591 9959-6932 5088-1586 24 Hour Total INTAKE I.V.(mL/kg/hr) 212(0.2) 212(0.1) Tube 50 50 50 Enteral 90 120 210 Shift Total(mL/kg) 212(1.7) 262(2) 140(1.1) 120(0.9) 260(2) OUTPUT Urine(mL/kg/hr) 200(0.2) 275(0.3) 600(0.2) 155(0.1) 150 305 Shift Total(mL/kg) 200(1.6) 275(2.1) 600(4.6) 155(1.2) 150(1.1) 305(2.3) NET 12 -275 -338 -15 -30 -45 Weight (kg) 121.5 130.5 130.5 130.5 130.5 130.5 130.5 Cumulative Intake/Output Cumulative Intake: 260 ML Cumulative Output: 480 ML Net Cumulative I/O: -220 ML Skin Evan Score, Total Score: 13 Skin Condition: Swollen Hygiene Hygiene Hygiene: Araceli care;Bathed Hygiene Level of Assistance: Completely dependent Skin Care / Prevention: Float Heels Oral Care: Performed Antimicrobial Skin Treatment: Yes Activity: Mobility Activity: In bed Repositioned: Lying Left Side HOB Elevated (in degrees): HOB 30 Level of Assistance: Completely dependent Activity Assistive Device: Repositioning Device Distance Ambulated (ft): 0 FEET Range of Motion: All Extremities;Active;Passive Anti-Embolism Interventions: On Anti-embolism Mechanical Devices: Sequential compression devices Knee High Lines and Drains Peripheral IV Left Antecubital (Active) Placement Date/Time: 01/23/24 1055 Size (Gauge): 18 G Orientation: Left Location: Antecubital SitePrep: Chlorhexidine Technique: Anatomical Landmarks Insertion attempts (FOR ED ONLY): 1 Number of days: 8 Peripheral IV Left Antecubital (Active) Placement Date/Time: 01/23/24 1136 Orientation: Left Location: Antecubital Site Prep: ChlorhexidineTechnique: Anatomical Landmarks Insertion attempts (FOR ED ONLY): 1 Number of days: 8 Enteral - Nasal/Oral Naso-gastric Nostril/Nare;Right (Active) Placement Date/Time: 01/26/24 1430 Type: Naso-gastric Tube Location: Nostril/Nare;Right Name of person who removed: Nel Minor RN Number of days: 5 Enteral - Percutaneous Endoscopic Gastrostomy Abdomen;Midline;Upper (Active) Placement Date/Time: 01/30/24 1514 Placed by: Dr. Ruffin Type: Percutaneous Endoscopic Gastrostomy Tube Location: Abdomen;Midline;Upper Size (FR): 20 Lot Number: [id number] Procedure Tolerance: Sedated Number of days: 1 Condom Urinary Catheter 01/31/24 1410 (Active) Placement Date/Time: 01/31/24 1410 Size: Medium Procedure Tolerance: Well Number of days: 0 Continuous Medications niCARdipine, Last Rate: Stopped (01/27/24 1206) Labs Recent Labs Component Name 01/31/24 1116 01/30/24 0429 01/29/24 0259 01/28/24 0341 SODIUM 137 139 140 139 POTASSIUM 4.4 4.1 4.1 4.0 CHLORIDE 101 101 100 102 CO2 23 26 27 26 BUN 17 17 15 15 CREATININE 0.80 0.80 0.74 0.75 GLUCOSE 119* 146* 135* 126* CALCIUM 9.6 9.6 9.3 9.3 ALBUMIN - 2.7* 2.7* 2.6* ALKPHOS - 81 90 90 ALT - 9 10 12 AST - 14 14 17 TBIL - 0.2 0.2 0.3 TPROT - 7.8 8.2 7.8 EGFR >90 >90 >90 >90 Narrative Pt drowsy RASS -1 Follows one step commands Moves all extrermities NIH 19 Expressive aphasia No BM Condom cath on Up in combo chair x4 hours Family updated Hamlet Patel RN 01/31/2024 6:55 PM This note is only as accurate as the information entered into [employer]ango!. Be sure to review Orders and MAR for additional information * Hamlet Patel RN - 01/31/2024 5:40 PM CDT Problem: Tobacco Use Goal: Inpatient tobacco-use cessation counseling participation Outcome: Progressing Problem: Fall Risk Goal: Patient will remain free of falls Outcome: Progressing Problem: Skin Integrity Goal: Skin integrity is maintained or improved Outcome: Progressing Problem: Neurological Deficit Goal: Neurological status is stable or improving Outcome: Progressing Problem: Pain/Discomfort Goal: Patient exhibits reduced pain/discomfort as evidenced by pain scores Outcome: Progressing Goal: Patient uses pharmacological and non-pharmacological pain management strategies. Outcome: Progressing Goal: Patient verbalizes acceptable level of pain relief and ability to engage in desired activity. Outcome: Progressing Problem: Potential for Urinary Catheter-Associated Infection Goal: Signs and Symptoms of urinary catheter-associated infection are avoided Outcome: Progressing * Jeff Ruffin MD - 01/31/2024 3:42 PM CDT GI Progress Note Patient's Name : Raza Vazquez Follow-up PEG placed on January 30, 2024, vertebral CVA Subjective Sitting up in a chair. Remains altered mental status. Tolerating tube feeds via PEG. No residuals or diarrhea reported. Constitutional: No fatigue, weight loss, malaise and anorexia, Respiratory: NO shortness of breath, dyspnea on exertion and acute cough, Cardiovascular: No palpitations, chest pain, Gastrointestinal: Per HPI Genitourinary: No dysuria, frequency Skin: No rash Objective General appearance: alert, cooperative, no distress Head and neck. No JVD, No enlarged lymph nodes or thyromegaly Lungs: breath sounds normal and symmetric; no rales or wheezes Heart: regular rhythm, normal S1 and S2, without murmurs, gallops or rubs Abdomen: soft without mass, non-tender, with normal bowel sounds G-tube site looks okay Extremities: no clubbing, cyanosis or edema Data BP 144/89 Pulse 99 Temp 98.4 ??F (36.9 ??C) (Oral) Resp 26 Ht 1.93 m (6' 4 ) Wt 130.5 kg (287 lb 11.2 oz) SpO2 95% Intake/Output Summary (Last 24 hours) at 01/31/2024 1542 Last data filed at 01/31/2024 1400 Gross per 24 hour Intake 140 ml Output 600 ml Net -460 ml Recent Labs Component Name 01/30/24 0429 01/29/24 0259 01/28/24 0341 WBC 10.0 10.5 8.5 HGB 12.4* 12.6* 11.8* HCT 38.7 40.0 37.2* PLTCOUNT 289 319 293 Recent Labs Component Name 01/31/24 1116 01/30/24 0429 01/29/24 0259 SODIUM 137 139 140 POTASSIUM 4.4 4.1 4.1 CHLORIDE 101 101 100 CO2 23 26 27 BUN 17 17 15 CREATININE 0.80 0.80 0.74 GLUCOSE 119* 146* 135* CALCIUM 9.6 9.6 9.3 ALBUMIN - 2.7* 2.7* ALKPHOS - 81 90 ALT - 9 10 AST - 14 14 TBIL - 0.2 0.2 TPROT - 7.8 8.2 EGFR >90 >90 >90 No results for input(s): MAGMGDL in the last 96046 hours. Recent Labs Component Name 01/31/24 1319 01/30/24 0429 01/29/24 0259 PHOS 3.8 3.7 4.1 No results for input(s): AMYLASE in the last 64236 hours. No results for input(s): LIPASE in the last 31028 hours. Recent Labs Component Name 01/23/24 1039 07/26/22 1653 01/25/18 0026 PT 13.3 14.1 14.2 Recent Labs Component Name 01/23/24 1045 01/23/24 1039 07/26/22 1653 INR 1.1 1.0 1.1 Recent Labs Component Name 01/23/24 1039 01/24/18 1540 01/24/18 1345 PTT 28.3 35.7 >212.0* MEDICATIONS FOR CURRENT ENCOUNTER: ?? SCHEDULED MEDICATIONS: ?? 0.9% NaCl injection 3 mL, Intracatheter, q8h ?? albuterol-ipratropium (Duo-Neb) nebulizer solution 3 mL, Inhalation, q6h ?? amLODIPine (Norvasc) tablet 10 mg, Enteral Tube, QDAY ?? aspirin chew tablet 81 mg, Enteral Tube, QDAY ?? atorvastatin (Lipitor) tablet 80 mg, Enteral Tube, AT BEDTIME ?? clopidogrel (plaVIX) tablet 75 mg, Enteral Tube, QDAY ?? folic acid (Folvite) tablet 1 mg, Enteral Tube, QDAY ?? heparin injection 5,000 Units, Subcutaneous, BID ?? insulin aspart (NovoLOG) pen 0-18 Units, Subcutaneous, q6h ?? levETIRAcetam (Keppra) tablet 500 mg, Enteral Tube, BID ?? losartan (Cozaar) tablet 50 mg, Enteral Tube, AT BEDTIME ?? magnesium sulfate 2 g in 50 mL bolus, Intravenous, Once ?? modafinil (Provigil) tablet 200 mg, Enteral Tube, QAM ?? multiple vitamins with minerals tablet 1 tablet, Enteral Tube, QDAY ?? senna-docusate (Senokot-S) tablet 2 tablet, Enteral Tube, BID ?? thiamine (Vitamin B-1) tablet 100 mg, Enteral Tube, QDAY ?? [] *Hold/Avoid Medication, Other, 0800 and 1999 ?? [] bisacodyl (Dulcolax) suppository 10 mg, Rectal, QDAY ?? CONTINUOUS MEDICATIONS: ?? niCARdipine (Cardene) 50 mg in 0.9% NaCl IV 100 mL infusion, Intravenous, Continuous ?? PRN MEDICATIONS: ?? Or ?? Or ?? 0.9% NaCl injection 1-10 mL, Intracatheter, PRN ?? acetaminophen (Tylenol) tablet 650 mg, Enteral Tube, q4h PRN ?? dextrose 10 % IV bolus, Intravenous, PRN ?? dextrose 10 % IV bolus, Intravenous, PRN ?? glucagon (Glucagen) injection 1 mg, Subcutaneous, PRN ?? hydrALAZINE (Apresoline) injection 10 mg, Intravenous, q1h PRN ?? ondansetron (Zofran) injection 4 mg, Intravenous, q4h PRN ?? 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 Watch for bleeding Keep binder over PEG suppression does not pull it out Probably will need rehab after discharge from the hospital ?? History of alcohol abuse. Continue thiamine ?? Diabetes, dyslipidemia hypertension Continue Norvasc, Cozaar, atorvastatin ?? Seizures Continue Keppra ?? Over 35 minutes of face to face time and non face to face time was spent in the management and careof this patient. Jeff Ruffin MD [facility] [phone] * Jacqueline Vasquez - 01/31/2024 3:29 PM CDT Speech Pathology: Pt seen this date for dysphagia f/u. Raza Vazquez is a 63 year old male with a PMH of the following: Past Medical History: Diagnosis Date ??? Anemia 01/2018 ??? Asthma (HCC) ??? Chest congestion 08/05/2020 ??? Confusional arousals 08/05/2020 ??? Controlled type 2 diabetes mellitus without complication, without long-term current use of insulin (HCC) 09/28/2011 ??? 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 Cough syncope 2017 ??? Daytime sleepiness 08/05/2020 ??? Essential hypertension 01/23/2018 ??? Hyperlipidemia 08/05/2020 ??? Inadequate sleep hygiene 08/05/2020 ??? Morbid obesity with BMI of 40.0-44.9, adult (HCC) 08/05/2020 ??? Nocturia 08/05/2020 ??? Obesity (BMI 30-39.9) 04/24/2012 ??? Other chest pain 09/04/2018 ??? S/P CABG x 3 01/24/2018 ??? Snoring 08/05/2020 ??? Superficial postoperative wound infection 02/23/2018 sternum ??? Wears glasses 08/05/2020 ??? Weight gain 08/05/2020 40# past 6-8 months-covid ??? Wound of sternal region 02/23/2018 Patient was admitted for unresponsiveness. MRI brain showing multiple infarcts in the brainstem including the left midbrain and left thalamus and right periventricular region. CTA was significant forthrombosis of the basilar artery V short segment stenosis, pt taken to IVR. Intubated 01/22-01/24. Nohx of ST per chart review. NIH: Date: 01/31/2024 NIH Total: 19 S: Pt laying in bed. Very drowsy and having difficulty following commands. Pt did not open eyes during duration of visit, despite max cueing. Pt A&Ox1 with binary choice. Pt s/p PEG placement yesterday. [facility] for minimal to absent oral-motor movement. Oral care completed via LANDON suction kit. Pt with significant secretions, unable to clear with max cues, required deep suctioning. Pt observed with trials of ice chips x1. Oral phase significant for significantly poor lip closureand absent bolus manipulation. Laryngeal elevation restricted to palpation with immediate/prolongedcough response. Cough is congested, suspect that pt is having difficulty managing secretions. Overall, pt appears to present with suspected severe pharyngeal dysphagia and is at high risk for aspiration 2/2 acute brainstem CVA and recent intubation/extubation. Recommend STRICT NPO, it is appropriate for pursue long- term alternative nutrition/hydration. ST to follow. Speech/Language Pt significantly drowsy which limited cognitive linguistic treatment. Pt nodded his head in response to yes/no questions. Did not verbalize this date. Patient/Caregiver goals: Did not state Assessments: Dysphagia ?? Primary Diagnostic Impression - Oral: Moderate Primary Diagnostic Impression - Pharyngeal: Dysphagia;Severe (suspected) Risk For Aspiration: Severe ORELLANA Assessment: MASA Score: 125/200 ?? Dysphagia Severity Level: Severe (less than or equal to 138) / Risk for Aspiration: Severe (lessthan or equal to 140) Risk of aspiration is reduced with the use of diet modification/compensatory strategies. Speech & Integrative Language Orientation: Oriented x 2 Auditory Comprehension: Severe impairments Verbal Expression: Severe impairment Problem Solving/Reasoning: (DNT) Memory: Severe impairment Recommendations for Dysphagia: Diet Solids Recommendation: NPO Diet Liquids Recommendation: NPO 1. Recommended Form of Meds: NPO;Feeding Tube 2. Long-term alternative nutrition/hydration Risk For Aspiration: Severe Strategies Include: Oral Care Guidelines: Adequate oral hygiene is extremely important in preventing respiratory infection/pneumonia 1. Provide THOROUGH oral care AT LEAST EVERY 2 HOURS 2. Items to use: swabs, toothbrushes, tweezers, oral debridement solution, mouth wash, Yankauer suction, LANDON oral suction kit 3. All secretions (dried or moist) should be removed from all oral cavity surfaces including: ? Hard palate and velum ? Teeth/gums ? Tongue ? Lips ? Cheeks/buccal cavities ? Pharynx (using suction) 4. Once secretions have been adequately removed, oral care should be provided every two hours to ensure the pt's oral cavity is clean and that any secretions that may be aspirated are not high in bacteria content Recommendations for Integrative Language Deficits: 1. Continue acute ST 2. INTENSIVE ST at the next level of care. Results discussed with: Results discussed with:: Patient;Nursing Follow Up: Recommendations: NPO;With Alternative Nutrition;Dysphagia Treatment;Cognitive- linguistic Assessment Follow Up: Speech therapy to follow. Please refer to Care Plan. Education provided re: results and recommendations. If this is the last Speech Therapy visit, this serves as the discharge summary. Thank you for this referral. Jacqueline Suh NETWORK RELATIONS CONSULTANT Graduate Clinician [phone] * Leigh Gonzalez OT - 01/31/2024 1:41 PM CDT Occupational Therapy Treatment Summary: Chart reviewed for diagnosis and medical systems review. Nursing consented for OT. Explained purpose of OT and patient consented to participate in therapy. RECOMMENDATIONS/PLAN: Continue to progress with out of bed activity, with use of combilizer for functional participation in tasks and activities. Further assess pt's visual perception. OT Discharge Recommendations: Patient would benefit from intensive 3-hour multidisciplinary therapy This recommendation is made due to ongoing intensive OT functional needs: ability to actively participate in intensive therapy 3 hours/day, 5 days a week;patient has the need for more than one skilled therapy service;motivated to participate in therapy;not at baseline due to impaired ability to complete ADL's;functional mobility is significantly below baseline;likely to return to the community atdischarge with support system;patient and/or caregiver require specialized training;patient demonstrates a significant functional decline and would benefit from skilled therapy intervention to restore function;patient has the ability to progress and demonstrate measurable gains as a result of skilled therapy Recommended Transportation Method: Stretcher/Ambulance PPE worn by staff: gloves PPE worn by patient: gown - patient, clean;socks - clean AM-PAC is Daily Activity Raw Score:: 9 Precautions: Fall Skin PIV x 2 PEG Purewick SBP 120-180 O2 >92% Aspiration SUBJECTIVE: Pt presented semi-villegas's in bed, with sister present. Pt's sister left during session, and pt was agreeable to transfer to combilizer this date. Psychosocial: Patient Behaviors: Calm;Cooperative;Flat Affect Patient's Goal for the Day: Transfer to combilizer Pain Assessment: Pain Location #1 Pain Scale/Observation: Behaviors Pain Rating Score #1: 0 Sedation Level #1: 1-Awake and alert OBJECTIVE: Cognition: Orientation Level: Oriented to Person;Disoriented to Time;Disoriented to Situation;Disoriented to Place Cognition: Follows Commands-inconsistent;Processing-delayed;Judgement-decreased;Attention/concentra tion-decreased Transfers: Sit to Stand: Total Assistance Stand to Sit: Total Assistance Type of Transfer: Lateral Transfer Basic ADL: observation/clinical judgement Feeding: Total Assistance (PEG) Oral Facial Hygiene: Maximal Assistance (semi-villegas's) Bathing: Maximal Assistance Upper Body Dressing: Maximal Assistance Lower Body Dressing: Total Assistance Toileting: Total Assistance (purewick) RUE Assessment: RUE Assessment AROM - Right Upper Extremity: Exceptions PROM - Right Upper Extremity: Within Functional Limits Strength - Right Upper Extremity: Exceptions General RUE Tone: Hypotonic-Moderate Sensation - Right Upper Extremity: Within Normal Limits Military Equipment Specialist Strength - Right Upper Extremity: /5 LUE Assessment: LUE Assessment AROM - Left Upper Extremity: Within Functional Limits PROM - Left Upper Extremity: Within Functional Limits Strength - Left Upper Extremity: Exceptions Tone - Left Upper Extremity: Within Functional Limits Sensation - Left Upper Extremity: Within Normal Limits Military Equipment Specialist Strength - Left Upper Extremity: 5 Functional Level of Impairment: Functional Level of Comprehension: Minimal assistance (minimal prompting) pt expends 75% or more effort Functional Level of Expression: Moderate assistance (moderate prompting) pt expends 50-74% effort Functional Level of Social Interaction: Maximal assistance (maximum prompting) pt expends 25-49% effort Functional Level of Memory: Maximal assistance (maximum prompting) pt expends 25-49% effort Functional Level of Problem Solving: Maximal assistance (maximum prompting) pt expends 25-49% effort Vital signs: BP taken on R UE Before mobility During mobility After mobility BP 186/119 160/113 (128) - standing 45 degrees 135/92 - standing upright at 70 degrees 109/78 - standing upright for 1 minute 157/93 (114) - upright sitting position at end of session HR (bpm) 98 100 99 SpO2 (%) 98 96 91 LPM 0 0 0 O2 source Room Room Room Position Semi-villegas's Standing with combilizer Seated upright in combilizer Notes from Vital Signs: Pt denied SOB, lightheadedness, and dizziness during this date's session. Activity tolerance/Oxygen Therapy: Activity Tolerance: Requires rest breaks $ O2 DEVICE: Room Air Modified Mervin Score Current Modified [place] Score: 5 ASSESSMENT: Pt consented to complete this date's OT treatment session. OT observed and assessed pt's vitals, ROM and strength of B UE, functional transfers, hygiene/grooming, bed mobility. While semi-villegas's, pt participated in AAROM of B UE and LE as preparatory activity [facility] Pt demo decreased strength and tone within R UE > L UE. Pt demo increased ability to follow one-step commands, compared to previous OT session. Pt washed face with proximal and distal support of R UE, noting ataxic movements. Once environmental set up completed, pt received total A x3 forlateral transfer from bed to combilizer. Pt noted to be orthostatic + during positional changes, kenneth erating upright standing for approx 1 minute. Session ended with pt seated upright in combilizer. Pt continues to demonstrate difficulty tracking visual stimuli. Pt presents functional deficits in ADL tasks, mobility, transfers, activity tolerance, endurance, strength, cognition, which prevent themfrom returning to PLOF. Pt agreeable to continued OT services, and would benefit from continued skilled OT services to increase functional performance and independence to increase quality of life. Please refer to the Filed Flowsheet for further details. Call light and phone in reach with pt seated upright in combilizer with sister present. All lines, monitors, IV's, equipment in place and intact pre and post visit. [place], notified of patient's performance/location end of session. Educated patient/family in OT plan of care, role, functional re-training for tasks, and need for ongoing OT services. If this is the last OT visit, this note serves as the discharge summary. Kerry DORANTESR/L X [phone] * Yessenia Kerr MD - 01/31/2024 1:20 PM CDT INTERVENTIONAL STROKE NEUROLOGY PROGRESS NOTE Hospital Day: 8 A 63 year old male was admitted with PMH of DM, HTN, alcohol abuse who presented on 01/23/2024 10:27AM with chief complaint of unresponsiveness. He was found down at his home by the recharger person he had scheduled to visit his home today. His last known well was not clear. I spoke with his sister who said they had not seen or spoken to him in the last 24 hrs. He was able to follow some command upon arrival to the hospital but had a hard time moving his lower limbs. Suspicion of posterior circulation stroke was entertained. MRI brain stat was quickly obtained showing multiple infarcts in the brainstem including the left midbrain and left thalamus and right periventricular region. 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 Decision to take to IVRfor exploration and potential management. He was intubated in the ER for airway protection. CTH stable. Family reports L pupil has been larger for 2+months. Extubated 01/24. Reported seizure activity on 01/26, started on Keppra. No further seizure since. 01/31/2024: Patient up to chair, awake and interactive. PEG placed, TF restarted. At risk for refeeding syndrome so labs will be checked every 12 hours. Sister at bedside, updated on plan of care MEDICATIONS FOR CURRENT ENCOUNTER: SCHEDULED MEDICATIONS: 0.9% NaCl injection 3 mL, Intracatheter, q8h albuterol-ipratropium (Duo-Neb) nebulizer solution 3 mL, Inhalation, q6h amLODIPine (Norvasc) tablet 10 mg, Enteral Tube, QDAY aspirin chew tablet 81 mg, Enteral Tube, QDAY atorvastatin (Lipitor) tablet 80 mg, Enteral Tube, AT BEDTIME clopidogrel (plaVIX) tablet 75 mg, Enteral Tube, QDAY folic acid (Folvite) tablet 1 mg, Enteral Tube, QDAY heparin injection 5,000 Units, Subcutaneous, BID insulin aspart (NovoLOG) pen 0-18 Units, Subcutaneous, q6h levETIRAcetam (Keppra) tablet 500 mg, Enteral Tube, BID losartan (Cozaar) tablet 50 mg, Enteral Tube, AT BEDTIME modafinil (Provigil) tablet 200 mg, Enteral Tube, QAM multiple vitamins with minerals tablet 1 tablet, Enteral Tube, QDAY senna-docusate (Senokot-S) tablet 2 tablet, Enteral Tube, BID thiamine (Vitamin B-1) tablet 100 mg, Enteral Tube, QDAY [] *Hold/Avoid Medication, Other, 0800 and 1999 ??? [] bisacodyl (Dulcolax) suppository 10 mg, Rectal, QDAY CONTINUOUS MEDICATIONS: ??? niCARdipine (Cardene) 50 mg in 0.9% NaCl IV 100 mL infusion, Intravenous, Continuous PRN MEDICATIONS: Or Or 0.9% NaCl injection 1-10 mL, Intracatheter, PRN acetaminophen (Tylenol) tablet 650 mg, Enteral Tube, q4h PRN dextrose 10 % IV bolus, Intravenous, PRN dextrose 10 % IV bolus, Intravenous, PRN glucagon (Glucagen) injection 1 mg, Subcutaneous, PRN hydrALAZINE (Apresoline) injection 10 mg, Intravenous, q1h PRN ondansetron (Zofran) injection 4 mg, Intravenous, q4h PRN ??? prochlorperazine (Compazine) injection 10 mg, Intravenous, q4h PRN Peripheral IV Left Antecubital (Active) Placement Date/Time: 01/23/24 1055 Size (Gauge): 18 G Orientation: Left Location: Antecubital Site Prep: Chlorhexidine Technique: Anatomical Landmarks Insertion attempts (FOR ED ONLY): 1 Number of days: 8 Peripheral IV Left Antecubital (Active) Placement Date/Time: 01/23/24 1136 Orientation: Left Location: Antecubital Site Prep: ChlorhexidineTechnique: Anatomical Landmarks Insertion attempts (FOR ED ONLY): 1 Number of days: 8 Enteral - Nasal/Oral Naso-gastric Nostril/Nare;Right (Active) Placement Date/Time: 01/26/24 1430 Type: Naso-gastric Tube Location: Nostril/Nare;Right Name of person who removed: Nel Minor RN Number of days: 4 Enteral - Percutaneous Endoscopic Gastrostomy Abdomen;Midline;Upper (Active) Placement Date/Time: 01/30/24 1514 Placed by: Dr. Ruffin Type: Percutaneous Endoscopic Gastrostomy Tube Location: Abdomen;Midline;Upper Size (FR): 20 Lot Number: [id number] Procedure Tolerance: Sedated Number of days: 0 External Urinary Device 01/27/24 1000 (Active) Placement Date/Time: 01/27/24 1000 Number of days: 4 BP 168/99 Pulse 86 Temp 98.4 ??F (36.9 ??C) (Oral) Resp 28 Ht 1.93 m (6' 4 ) Wt 130.5 kg (287 lb 11.2 oz) SpO2 94% Wt Readings from Last 3 Encounters: 01/31/24 130.5 kg (287 lb 11.2 oz) 09/17/23 (!) 148.6 kg (327 lb 9.6 oz) 05/07/23 (!) 145.2 kg (320 lb) Multisystem Examination: Neck: ROM intact Respiratory: No respiratory distress. Cardiovascular: Normal heart rate, Normal rhythm. GI: Soft, No tenderness Integument: Warm, Dry Pupillometry Initial: NPI Left: 0 (01/23/24 1700) NPI Right: 4.1 (01/23/24 1700) Pupil Size Left (MM): 4.9 (01/23/24 1700) Pupil Size Right (MM): 2.38 (01/23/24 1700) Current: NPI Left: 3.8 (01/31/24 1200) NPI Right: 4.5 (01/31/24 1200) Pupil Size Left (MM): 2.62 (01/31/24 1200) Pupil Size Right (MM): 2.34 (01/31/24 1200) Neurological Examination: The patient is Awake, alert, and cooperative. He follows simple commands. Speech is expressive aphasia, dysarthric and soft. L Pupil is 3 mm R pupil is 3 mm Oculocephalic movements are present. Hearing intact. Motor: No involuntary movements were observed. Facial movements are asymmetric on the right. Strength is 3/5 in LUE, 3/5 RUE and 1/5 in the L LE and 1 in the R LE. Sensory: Facial and peripheral sensation are intact. Coordination: Unable to perform finger to nose. Gait: Not tested due to patient condition. Labs Recent Labs Component Name 01/24/24 0443 07/23/20 0649 01/20/19 1134 CHOL 229* 254* 258* TRIG 179* 179* 63 HDL 32* 48 63 LDLCALC 161* 173* 179* Recent Labs Component Name 01/31/24 1116 01/30/24 0429 01/29/24 0259 01/28/24 0341 SODIUM 137 139 140 139 POTASSIUM 4.4 4.1 4.1 4.0 CHLORIDE 101 101 100 102 CO2 23 26 27 26 BUN 17 17 15 15 CREATININE 0.80 0.80 0.74 0.75 GLUCOSE 119* 146* 135* 126* CALCIUM 9.6 9.6 9.3 9.3 ALBUMIN - 2.7* 2.7* 2.6* ALKPHOS - 81 90 90 ALT - 9 10 12 AST - 14 14 17 TBIL - 0.2 0.2 0.3 TPROT - 7.8 8.2 7.8 EGFR >90 >90 >90 >90 Evaluation: CT head 01/22: 1. No acute intracranial hemorrhage. 2. Involutional changes with chronic lacunar infarctions and ischemic microangiopathy. 3. Age indeterminate infarction left thalamus and less likely a sequela of trans-synaptic degeneration. MRI brain if there is concern for acute ischemia. CT head 01/23: No acute intracranial hemorrhage. Stable chronic findings. CT angio: Short segment severe, string-like stenosis of the lower basilar artery just above the vertebral confluence. Cerebral Angiogram Impression 01/23/2024: A severe stenosis in the proximal basilar artery, s/p successful balloon angioplasty. Residual stenosis about 50% in lateral view Echo: ??? Left??Ventricle: Left ventricle size is normal. Mildly to moderately increased wall thickness. Normal systolic function. EF 50-55%. Normal wall motion. Diastolic function is indeterminate. ??? Right??Ventricle: Right ventricle is not well visualized. ??? Aortic??Valve: Mild regurgitation. EKG: Results for orders placed or performed during the hospital encounter of 01/23/24 EKG 12-LEAD Result Value Ref Range Ventricular Rate 96 BPM Atrial Rate 96 BPM P-R Interval 146 ms QRS Duration ms 78 ms Q-T Interval ms 360 ms QTC Calculation (Bezet) 454 ms Calculated P [place] 79 degrees Calculated R [place] 76 degrees Calculated T [place] -77 degrees Interpretation EKG Normal sinus rhythm ST & T wave abnormality, consider inferolateral ischemia Abnormal ECG When compared with ECG of 26-JUL-2022 16:28, Premature ventricular complexes are no longer Present Non-specific change in ST segment in Anterior leads Inverted T waves have replaced nonspecific T wave abnormality in Inferior leads T wave amplitude has increased in Anterior leads Confirmed by JUSTICE PURVIS MD ([id number]) on 01/23/2024 2:35:44 PM Tele: Cardiac Rhythm: Sinus Rhythm (01/31/24 1200) LDL: Recent Labs Component Name 01/24/24 0443 07/23/20 0649 01/20/19 1134 LDLCALC 161* 173* 179* HgBA1C: Recent Labs Component Name 01/23/24 1039 09/17/23 1330 10/18/22 1045 HGBA1C 6.1* 6.5 5.9 This patient will benefit from a SGLT-2 or GLP-1, this requires close follow up with PCP or endocrine and lab monitoring. Due to this reason deferred treatment until outpatient follow up. Initial documented NIHSS Score: NIH Total: 13 (01/23/24 1048) Last Documented NIHSS Score: NIH Total: 19 (01/31/24 0800) Depression Screen Score = Does not meet criteria for screening: Cognitive Impairment PHQ-2 PHQ-9 Therapy Recommendations: Discharge Discharge Equipment Recommendations: To Be Determined (01/29/24 1424) OT Discharge Recommendations: Patient would benefit from intensive 3-hour multidisciplinary therapy(01/30/24 1206) This recommendation is made due to ongoing intensive OT functional needs: ability to actively participate in intensive therapy 3 hours/day, 5 days a week;patient has the need for more than one skilled therapy service;motivated to participate in therapy;not at baseline due to impaired ability to complete ADL's;functional mobility is significantly below baseline;likely to return to the community atdischar with support system;patient and/or caregiver require specialized training;patient demonstrates a significant functional decline and would benefit from skilled therapy intervention to restore function;patient has the ability to progress and demonstrate measurable gains as a result of skilled therapy (01/30/24 1206) PT Discharge Recommendations: Patient would benefit from intensive 3-hour multidisciplinary therapy(01/29/24 7555) This recommendation is made due to ongoing intensive PT functional needs: patient has the need for more than one skilled therapy service;patient demonstrates a significant functional decline and would benefit from skilled therapy intervention to restore function;patient has the ability to progress and demonstrate measurable gains as a result of skilled therapy (01/29/24 1424) Recommended Transportation Method: Stretcher/Ambulance (01/30/24 1206) Modified [place] Score: Preadmission Modified [place] Score: 0 (01/26/24 0936) Current Modified [place] Score: 5 (01/31/24 1200) Procedures: Basilar artery??angioplasty 01/23/2024 PEG 01/30/24 IMPRESSION - Acute ischemic stroke: Posterior circulation syndrome - 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 - Statin: Lipitor - VTE prevention with SCDs and Heparin - Allow permissive HTN - Maintain euglycemia, SSI - Keppra 500 mg BID - Nutrition: NPO, PEG for nutrition and medication - PT/OT and speech therapy ongoing. - Replace magnesium - MVI, w/ thiamine and folic acid. Labs every 12 hours. Multidisciplinary rounds have been completed today with the following disciplines: Stroke neurology, Stroke MERCHANDISE FLOW MANAGER, and nursing. Travis Bhat, MSN, CORPORATE FINANCIAL ANALYST, MERCHANDISE FLOW MANAGER-C, SCRN, CNRN Interventional Vascular Neurology [facility] ASCOM #[id number] ATTESTATION I have seen and examined the patient with the nurse practitioner. I have re- confirmed the paula elements of the history and performed an examination. I have discussed the patient's care with the nurse practitioner.? 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 He is lethargic yet able to wake up and follow commands.??He??remained able to move all limbs with weakness on the left limbs. He shows ptosis in the left eyelid and limited eye movements consistent with third nerve palsy. He also demonstrates severe neurogenic dysphagia and dysarthria. Tube nutrition ongoing. A spell??suggestive of seizure??activity; thus, AED started though EEG was normal. ?? PEG placed and he doing much better today. He was sitting in chair and interactive. Placement in rehab should be considered for early next week. ? Yessenia Kerr MD Interventional Vascular Neurology?? [facility] Pager- [phone] Nurse Practitioner (ASCOM [id number]) ? * Annamarie Bonilla RN - 01/31/2024 1:06 PM CDT Care Coordination Progress Note This [employer] Salesperson met with patient and discussed the patient's PLOF, the POC and anticipated DC plan. ?? 01/23/2024 Pt BIBEMS from home, he was found unresponsive by an recharger. Unknown LKW. Pt was found covered in urine with a nearby handle of vodka that was empty.??Pt was hypoxic for ems so was placed on 2L and a nasal airway was placed and the pt's mental status has improved en route. Code stroke was called in the ED, pt intubated and taken to MRi brain stat showing multiple infarcts in the brainstem including the left midbrain and left thalamus and right periventricular region. 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 Decision to take to IVR for exploration and potential management. (Ezepue). IVR procedure showed proximal basilar artery stenosis, angioplasty to 50%. Dissection to right distal vertebral artery.?? 01/22: Admitted to ICU 01/23: following simple commands. 01/24: Extubated 01/26: encephalopathic, concern for seizure -- cEEG, [facility], 01/27: okay to transfer to [address] [place] [address] 01/29: s/p EGD with PEG placement. Pt remains in ICU room 343 Anticipated level of care at discharge: Acute Rehab Facility Anticipated level of care provider: [facility] Anticipated Discharge Date: 01/31/24 Transportation at Discharge: other (TBD) Orientation Level: Oriented to Person;Disoriented to Time;Disoriented to Situation;Disoriented to Place (Simultaneous filing. User may not have seen previous data.) Family Support (Name and Phone): Extended Emergency Contact Information Primary Emergency Contact: Christi Vazquez Mobile Relation: Daughter Secondary Emergency Contact: Carol Vazquez [employer] [facility] Relation: Sister READMISSION RISK SCORE is 16 at 1:06 PM 01/31/2024. Portions of this note have been copied from the medical record, but edited appropriately to accurately reflect the patient's current clinical state. Annamarie Bonilla RN Case Management - ICU 3N & 3S [facility] Ascom: [phone] O: [phone] Stroke Psychosocial Assessment Diagnosis: The primary encounter diagnosis was Encounter for central line placement. Diagnoses of Altered mental status, unspecified altered mental status type, Hypoxia, Basilar artery thrombosis, Acute hypoxemic respiratory failure (HCC), and Nausea and vomiting, unspecified vomiting type were also pertinent to this visit. Contacts/Support: Extended Emergency Contact Information Primary Emergency Contact: Christi Vazquez Mobile Relation: Daughter Secondary Emergency Contact: Vazquez,Carol [facility] Relation: Sister Insurance: Payer/Plan Subscriber Name Rel Member # Group # [employer] - [employer]* Self [id number] [address] [id number] Prior level of functioning: Cognition: Orientation Level: Oriented to Person;Disoriented to Time;Disoriented to Situation;Disoriented to Place Mental Health History: Employment/income status: works at [employer] Alcohol/Drug/Tobacco: Social History Socioeconomic History ??? Marital status: Legally Spouse name: Not on file ??? Number of children: 1 ??? Years of education: 16 ??? Highest education level: Bachelor's degree (e.g., BA, AB, BS) Occupational History ??? 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 Smoking status: Some Days Types: Cigars Start date: 1997 ??? Smokeless tobacco: Never ??? Tobacco comments: 3-4 times / month-2020 says 1x/month Vaping Use ??? Vaping Use: Never used Substance and Sexual Activity ??? Alcohol use: Yes Alcohol/week: 10.0 standard drinks of alcohol Types: 10 Standard drinks or equivalent per week Comment: 0-50+ a week ??? Drug use: Yes Types: Marijuana ??? Sexual activity: Not Currently Other Topics Concern ??? Not on file Social History Narrative Lives in apartment alone Pets none Hobby watch tv, golf Social Determinants of Health Financial Resource Strain: Low Risk (01/24/2024) Overall Financial Resource Strain (CARDIA) ??? Difficulty of Paying Living Expenses: Not hard at all Food Insecurity: No Food Insecurity (01/24/2024) Hunger Vital Sign ??? Worried About Running Out of Food in the Last Year: Never true ??? Ran Out of Food in the Last Year: Never true Transportation Needs: No Transportation Needs (01/24/2024) PRAPARE - Transportation ??? Lack of Transportation (Medical): No ??? Lack of Transportation (Non-Medical): No Stress: Not on file Housing Stability: Unknown (01/24/2024) Housing Stability Vital Sign ??? Unable to Pay for Housing in the Last Year: No ??? Number of Places Lived in the Last Year: Not on file ??? Unstable Housing in the Last Year: No Prior Stroke Co-morbidities Past Medical History: Diagnosis Date ??? Anemia 01/2018 ??? Asthma (HCC) ??? Chest congestion 08/05/2020 ??? Confusional arousals 08/05/2020 ??? Controlled type 2 diabetes mellitus without complication, without long-term current use of insulin ([facility]) 09/28/2011 ??? 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 Cough syncope 2017 ??? Daytime sleepiness 08/05/2020 ??? Essential hypertension 01/23/2018 ??? Hyperlipidemia 08/05/2020 ??? Inadequate sleep hygiene 08/05/2020 ??? Morbid obesity with BMI of 40.0-44.9, adult ([facility]) 08/05/2020 ??? Nocturia 08/05/2020 ??? Obesity (BMI 30-39.9) 04/24/2012 ??? Other chest pain 09/04/2018 ??? S/P CABG x 3 01/24/2018 ??? Snoring 08/05/2020 ??? Superficial postoperative wound infection 02/23/2018 sternum ??? Wears glasses 08/05/2020 ??? Weight gain 08/05/2020 40# past 6-8 months-covid ??? Wound of sternal region 02/23/2018 Medication Needs: TBD Established Resources: SW Referral: No If patient requires HHC at discharge, he/she requests: Anticipated level of care provider: [facility] at [place] IP Equipment at Home: List DME pt. requires but does not have.: None PCP: If no PCP, action taken: Transportation: Transportation at discharge: other (TBD) Coping Strengths: Short Term Goals: Intermediate Goals: Patient and Family Questions/Concerns: * Luz Moser, PT - 01/31/2024 1:01 PM CDT Physical Therapy Treatment PT orders received. Chart reviewed for diagnosis and medical systems review. Nursing consented for PT. Explained purpose of PT and patient consented to participate in therapy. A 63 year old male was admitted with PMH of DM, HTN, alcohol abuse??who presented on 01/23/2024 10:27 AM??with chief complaint of unresponsiveness.??He was found down at his home by the recharger person he had scheduled to visit his home today. His last known well was not clear. I spoke with his sister who said they had not seen or spoken to him in the last 24 hrs. He??was able to follow some command upon arrival to the hospital but had a hard time moving his lower limbs. Suspicion of posterior circulation stroke was entertained. MRI brain stat was quickly obtained showing multiple infarctsin the brainstem including the left midbrain and left thalamus and right periventricular region. 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 Decision to take toIVR for exploration and potential management. He was intubated in the ER for airway protection.??CTH stable. Family reports L pupil has been larger for 2+months. Extubated 01/24. Reported seizure activity on 01/26, started on Keppra. No further seizure since. 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 Continue visual and cognitive exercises on combilizer. Acute Rehab PPE worn by staff: gloves AM-PAC Basic mobility score for this patient is SUBJECTIVE: more awake, attentive to verbal commands Pt educated in PT plan of care, fall precautions, and benefits of OOB activity. Pain Assessment: Pain Scale/Observation: Numeric (0-10) Pain Rating Score #1: 0 OBJECTIVE: Cognition: Orientation Level: Oriented to Person;Disoriented to Time;Disoriented to Situation;Disoriented to Place Bed Mobility: Supine to Sit: Total Assistance Sit to Supine: Total Assistance Transfers: Sit to Stand: Total Assistance Stand to Sit: Total Assistance Bed to Chair: Total Assistance;X 3 Vision: L eye drooping Decreased R eye tracking (very minimal Lateral>Medial) Neglect/Perception: Able to distinguish L and R side thru verbal cues ROM and Strength: Moves all extremities with noted weakness R LE Coordination: Unable d/t AMS Activity Tolerance and O2 Requirements: Room Air Vital Signs: HR and Oximetry stable. BP unstable, was orthostatic with standing from SBP 186 in supine to as lowas SBP 109/78 in standing. Pt tolerated 2 mins standing, asymptomatic. Modified [place] Score: Current Modified [place] Score: 5 ASSESSMENT: Pt appears more alert today eyes open with still ongoing L ptosis. Pt able to follow verbal commands, able to distinguish his R and L sides. Moves all extremities except notably weaker R LE. Pt worked with OT performed ROM activities with PT arrival. Pt was transitioned to Combilizer for standing WB and still presents limitation d/t Orthostatics. Was able to perform visual exercises and reaching, noted slowed processing and very limited R eye tracking (pupil stays at the center) Pt was repositioned to sitting with BP stable. Overall, pt demonstrated improved wakefulness, was able to actively participate with activities, despite still presenting impairment from above observation. He appears to response well with therapy and may benefit with ongoing therapy for endurance, tolerance, strengthening and cognitive activities. Pt still not at baseline and may consider rehab placement. Refer to Plan of Care for PT goals. Call light and phone in reach . All lines, monitors, IV's, equipment in place and intact pre and post visit. RN, notified of patient's performance/location end of session. If this is the last PT visit, this note serves as the discharge summary. Luz PT, CCI [phone] * Linda Junior, RD/TGN - 01/31/2024 11:26 AM CDT Nutrition Follow-Up Brief Synopsis: Patient at Nutrition Risk and meets criteria for Severe Protein Calorie malnutrition. Patient identified at risk for Refeeding Syndrome. Weight Change: Weight Loss: > or equal to 2% x 1 week Energy Intake: < 50% of estimated energy requirement for > 5 days Fat Loss Identified: none Muscle Loss Identified: none-mild Nutrition Plan: ??? Restart osmolite 1.2 @ 30 ml/hr. This provides 864 kcals, 40 g PRO, 590 ml free water ??? Continue Protein additive (60 kcals, 15 g PRO) ??? RD to monitor tolerance and advance if stable (increase by 33% of goal every 1-2 days). ??? Scale weights daily. Recommendations to Physician: ?? Monitor Potassium, Magnesium and Phosphorus levels Q12hr for at least 3 days while nutrition advances. ?? Vitamin supplementation: - 100 mg thiamine daily for 5-7 days - 1 mg folic acid daily for 5-7 days - MVI daily for 10 days Discharge Needs: none at this time Patient Summary: Pt s/p PEG placement yesterday. Per MERCHANDISE FLOW MANAGER ok to restart TF. Due to 1 week of insignificant nutrition since admission Pt is at high risk of refeeding, messaged MD and MERCHANDISE FLOW MANAGER about order vitamin supplements and labs q12hr. Weight lost of -2% weight change in 1 week. NFPE completed showing no fat wasting andno-mild muscle wasting. No new labs today. Current diet order: NPO Current tube feeding order: Osmolite @ 30 ml/hr. This provides 864, 40 g pro, 590 ml free water Recent Labs Component Name 01/30/2442801/29/24 0259 01/28/24 0341 07/26/22 1653 12/24/19 0923 09/06/18 0318 09/04/18 0956 SODIUM 139 140 139 - 136 135* 135* POTASSIUM 4.1 4.1 4.0 - 4.0 3.5 4.1 CHLORIDE 101 100 102 - 101 100 102 CO2 26 27 26 - 29 28 28 BUN 17 15 15 - 11 14 9 CREATININE 0.80 0.74 0.75 - 0.97 0.97 0.88 GLUCOSE 146* 135* 126* - 187* 141* 126* CALCIUM 9.6 9.3 9.3 - 8.6 8.5 8.4* EGFR >90 >90 >90 - 84 >60 >60 EGFRAFR - - - - 97 >60 >60 - = values in this interval not displayed. Recent Labs Component Name 01/30/2442801/29/24 0259 01/28/24 034 MAGNESIUM 1.5* 1.6 1.7 Recent Labs Component Name 01/30/2442801/29/24 0259 01/28/24 034 PHOS 3.7 4.1 4.4 MEDICATIONS FOR CURRENT ENCOUNTER: SCHEDULED MEDICATIONS: 0.9% NaCl injection 3 mL, Intracatheter, q8h albuterol-ipratropium (Duo-Neb) nebulizer solution 3 mL, Inhalation, q6h amLODIPine (Norvasc) tablet 10 mg, Enteral Tube, QDAY aspirin chew tablet 81 mg, Enteral Tube, QDAY atorvastatin (Lipitor) tablet 80 mg, Enteral Tube, AT BEDTIME clopidogrel (plaVIX) tablet 75 mg, Enteral Tube, QDAY heparin injection 5,000 Units, Subcutaneous, BID insulin aspart (NovoLOG) pen 0-18 Units, Subcutaneous, q6h levETIRAcetam (Keppra) tablet 500 mg, Enteral Tube, BID losartan (Cozaar) tablet 50 mg, Enteral Tube, AT BEDTIME modafinil (Provigil) tablet 200 mg, Enteral Tube, QAM senna-docusate (Senokot-S) tablet 2 tablet, Enteral Tube, BID [] *Hold/Avoid Medication, Other, 799 and 1999 ?? [] bisacodyl (Dulcolax) suppository 10 mg, Rectal, QDAY CONTINUOUS MEDICATIONS: ?? niCARdipine (Cardene) 50 mg in 0.9% NaCl IV 100 mL infusion, Intravenous, Continuous Patient Vitals for the past 336 hrs: Weight Weight Method 01/31/24 0400 130.5 kg (287 lb 11.2 oz) Bed scale 01/30/24 0300 121.5 kg (267 lb 13.7 oz) Bed scale 01/29/24 0400 133 kg (293 lb 3.4 oz) Bed scale 01/28/24 0400 135 kg (297 lb 9.9 oz) Bed scale 01/26/24 0430 133 kg (293 lb 3.4 oz) Bed scale 01/25/24 0243 131 kg (288 lb 12.8 oz) Bed scale 01/24/24 0928 (!) 142.4 kg (314 lb) -- 01/24/24 0400 (!) 142.5 kg (314 lb 2.5 oz) Bed scale 01/23/24 1700 136 kg (299 lb 13.2 oz) Bed scale 01/23/24 1055 136.1 kg (300 lb) Stated Monitor per nutrition guidelines. * Gustavo Taveras RCP - 01/31/2024 8:27 AM CDT Noninvasive ventilation order has been verified will continue to assess. ?? Orders as follow ?? CPAP??5 cmH2O * Rosalee Reynaga RN - 01/30/2024 9:59 PM CDT Problem: Hemodynamic Status/Cardiac Output Goal: Patient has stable vital signs and fluid balance 01/30/20242199 by Rosalee Reynaga RN Outcome: Progressing Note: RAZA VAZQUEZ will have vital signs within ordered parameters this shift 01/30/20242158 by Rosalee Reynaga RN Outcome: Progressing Problem: Neurological Deficit Goal: Neurological status is stable or improving Outcome: Progressing Problem: Skin Integrity Goal: Skin integrity is maintained or improved 01/30/20242199 by Rosalee Reynaga RN Outcome: Progressing Note: RAZA VAZQUEZ will have no worsening or new skin breakdown this shift effective by turning. Turing necessity will be assessed due to patients functional status and Evan score. 01/30/20242157 by Rosalee Reynaga RN Outcome: Progressing Problem: Fall Risk Goal: Patient will remain free of falls Outcome: Progressing * Hamlet Patel RN - 01/30/2024 6:57 PM CDT Shift Summary Nursing [facility] 3S ICU Room: 01/30/24 Patient: Raza Vazquez Sex: male Age: [age] year old : 1960 [facility]#: [id number] Height: 193 cm (6' 4 ) Weight: 121.5 kg (267 lb 13.7 oz) Body mass index is 32.6 kg/m??. Code Status: Full Code Admit: 01/23/2024 Hospital Day: 7 Attending: Yessenia Kerr MD Unit: [address] ICU Allergies Allergen Reactions ??? Lisinopril Angioedema ??? Pcn [Penicillins] Swelling eyes swelled shut 50 years ago ??? Penicillin V Rash Safety concerns: Choose Restraint type: Non-Violent Non-Violent Restraint Type Soft Wrist - Bilateral (NV): DISCONTINUED Past Medical/surgical History Past Medical History: Diagnosis Date ??? Anemia 01/2018 ??? Asthma ([facility]) ??? Chest congestion 08/05/2020 ??? Confusional arousals 08/05/2020 ??? Controlled type 2 diabetes mellitus without complication, without long-term current use of insulin ([facility]) 09/28/2011 ??? 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 Cough syncope 2017 ??? Daytime sleepiness 08/05/2020 ??? Essential hypertension 01/23/2018 ??? Hyperlipidemia 08/05/2020 ??? Inadequate sleep hygiene 08/05/2020 ??? Morbid obesity with BMI of 40.0-44.9, adult ([facility]) 08/05/2020 ??? Nocturia 08/05/2020 ??? Obesity (BMI 30-39.9) 04/24/2012 ??? Other chest pain 09/04/2018 ??? S/P CABG x 3 01/24/2018 ??? Snoring 08/05/2020 ??? Superficial postoperative wound infection 02/23/2018 sternum ??? Wears glasses 08/05/2020 ??? Weight gain 08/05/2020 40# past 6-8 months-covid ??? Wound of sternal region 02/23/2018 Past Surgical History: Procedure Laterality Date ??? COLONOSCOPY N/A 11/12/2020 N/A; COLONOSCOPY SCREEN ??? Coronary Artery Bypass Graft N/A 01/24/2018 N/A; Coronary artery bypass graft x 3 ??? ENDOSCOPY, UPPER N/A 01/30/2024 N/A; ESOPHAGOGASTRODUODENOSCOPY (EGD) WITH PEG PLACEMENT ??? Tonsillectomy Vitals Temp: 98.4 ??F (36.9 ??C) Temp Source: Axillary Pulse: 96 Heart Rate Source: Monitor Resp: (!) 32 BP: 147/92 MAP: 110 Arterial Line BP #1: 195/99 Art Line MAP #1: 133 mmHg Patient Vitals for the past 6 hrs: Temp Pulse Resp BP 01/30/24 1845 -- 96 (!) 32 -- 01/30/24 1830 -- 91 31 -- 01/30/24 1815 -- 99 (!) 32 -- 01/30/24 1800 -- 96 30 147/92 01/30/24 1745 -- 93 (!) 33 -- 01/30/24 1730 -- 95 (!) 32 -- 01/30/24 1715 -- 92 27 -- 01/30/24 1700 -- 95 (!) 32 167/98 01/30/24 1645 -- 93 (!) 33 -- 01/30/24 1630 -- 99 (!) 32 -- 01/30/24 1615 -- 96 (!) 32 -- 01/30/24 1603 -- 101 (!) 33 (!) 176/100 01/30/24 1600 98.4 ??F (36.9 ??C) 95 23 (!) 182/102 01/30/24 1558 -- 98 30 -- 01/30/24 1545 -- 100 (!) 33 (!) 175/103 01/30/24 1530 -- 101 31 -- 01/30/24 1517 -- -- -- (!) 230/141 01/30/24 1512 -- -- -- (!) 187/110 01/30/24 1506 -- -- -- 157/97 01/30/24 1501 -- -- -- (!) 142/101 01/30/24 1315 -- 98 30 -- 01/30/24 1300 -- 97 (!) 36 129/77 Neurological Neurological Level of Consciousness-Adult: Drowsy;Eyes Open Spontaneously Orientation Level: Oriented to Person;Disoriented to Time;Disoriented to Situation;Disoriented to Place Cognition: Attention/concentration-decreased;Follows Commands- inconsistent;Follows one step commands ;Processing-delayed;Judgement-decreased;Safety awareness-decreased Speech: Aphasic-expressive;Delayed responses;Whisper Vision: Partial hemianopia Pupil Size Right (MM): 3 Pupil Assessment Right: Brisk;Round Pupil Size Left (MM): 4 Pupil Assessment Left: Nonreactive (fixed) Facial symmetry: Right facial drooping RASS: RASS : Drowsy - Not fully alert, but has sustained awakening (eye- opening/eye contact) to voice (10 seconds or greater) to verbal stimulation Last Known Well: Initial documented NIHSS Score: NIH Total: 13 (01/23/24 1048) Last Documented NIHSS Score: NIH Total: 19 (01/30/24 0800) Neuromuscular Neuromuscular Motor Response RUE: Responds to commands Motor Function RUE: Cannot Overcome Resistance Sensation RUE: Normal;No numbness;No tingling Motor Response LUE: Responds to commands Motor Function LUE: Cannot Overcome Resistance Sensation LUE: Normal;No numbness;No tingling Motor Response RLE: Responds to commands Motor Function RLE: Cannot Overcome [place] Sensation RLE: Normal;No numbness;No tingling Motor Response LLE: Responds to commands Motor Function LLE: Cannot Overcome [place] Sensation LLE: Normal;No numbness;No tingling Ataxia: Absent Cardiac Cardiac Monitoring Cardiac Rhythm: Sinus Rhythm Ectopy: None Ectopy Frequency: Occasional Respiratory SPO2: SpO2: 93 % Monitor: Liters Per Minute: O2 L/M: 0 FIO2: O2 % (FiO2): 30 % Device: $ O2 DEVICE: Room Air O2 % (FiO2): 30 % $ O2 DEVICE: Room Air Incentive Spirometry Volume: # Attempts: Performance: Vent Settings Mechanical Ventilation VENT MODE: CPAP/PSV SET VENTILATION RATE (bpm): 18 bpm OBSERVED VENTILATION RATE (bpm): 23 bpm SET TIDAL VOLUME (mL): 550 ML EXHALED TIDAL VOLUME (ml): 611 ml Spontaneous Tidal Volume (mL): 340 ML Pressure Support: 8 cm H2O PEEP/CPAP: 5 cm H20 ETCO2 (mmHg): 49 mmHg OBSERVED PEAK [employer]SPIRATORY PRESSURE (cm H2O): 14 cm H2O % MV: 100 % O2 %: 30 % ABG: Recent Labs Component Name 01/27/24 1233 07/26/22 1756 01/25/18 0026 PH 7.42 - 7.42 PCO2 44 - 38 PO2 64* - 82 HCO3 - - 24.3 - = values in this interval not displayed. ABG: Recent Labs Component Name 01/27/24 1233 01/23/24 1714 01/23/24 1053 [id number] 28.5* 26.6* 25.9 Gastric Intestinal Orders Placed This Encounter Procedures ??? DIET NPO Except: NO EXCEPTIONS Hold tube feeding after midnight Standing Status: Standing Number of Occurrences: 1 Order Specific Question: Except Answer: NO EXCEPTIONS ??? DIET TUBE FEEDING CONTINUOUS Standing Status: Standing Number of Occurrences: 1 Order Specific Question: Formula Type? Answer: OSMOLITE 1.2 KESHA (STANDARD LOW RESIDUE) Order Specific Question: Route? Answer: INTESTINAL DOBHOFF TUBE Order Specific Question: Goal Feeding (ml/hr): Answer: 90ML Order Specific Question: Flush Frequency: Answer: Every 6 hours Order Specific Question: Free Water Flush Amount in ml: Answer: 50 Order Specific Question: Protein Additives: Answer: 1 PROTEIN FLUSH/FEEDING TUBE DAILY Order Specific Question: Initial Rate (ml/hr): Answer: 20 Order Specific Question: Rate Adjust Amount (ml/hr): Answer: 10 Order Specific Question: Rate Adjust Frequency: Answer: 8qhr DIET TUBE FEEDING CONTINUOUS DIET NPO Except: NO EXCEPTIONS Last BM (Date): 01/28/24 Feeding: LBM: Last BM (Date): 01/28/24 Bowel Patern: Bowel Sounds: Bowel Sounds (All Quadrants): Active Stool Assessment Bowel Incontinence: No Stool Appearance : Loose;Mucous Stool Color : Yellow Stools (# of stools): 0 Stool Amount: Medium Urinary Urinary Urine Color: Beckie Urine Appearance: Concentrated Urine Odor: No Odor Urinary Symptoms: Catheter (male external) [REMOVED] Condom Urinary Catheter 01/26/24 1441-Urine Output (catheter): 300 External Urinary Device 01/27/24 1000-Urine Output (catheter): 100 [REMOVED] Indwelling Transurethral Urinary Catheter-Urine Output (catheter): 150 Intake/Output Date 01/29/24 1500 - 01/30/24 0659 01/30/24 0700 - 01/31/24 0659 Shift 0084-2516 9291-5825 24 Hour Total 7344-6222 0256-9883 6236-3964 24 Hour Total INTAKE I.V.(mL/kg/hr) 212 212 Tube 110 210 50 50 Enteral 246 157 403 Shift Total(mL/kg) 356(2.7) 157(1.3) 613(5) 50(0.4) 212(1.7) 262(2.2) OUTPUT Urine(mL/kg/hr) 400(0.4) 100(0.1) 500(0.2) 125(0.1) 100 225 Shift Total(mL/kg) 400(3) 100(0.8) 500(4.1) 125(1) 100(0.8) 225(1.9) NET -44 57 113 -75 112 37 Weight (kg) 133 121.5 121.5 121.5 121.5 121.5 121.5 Cumulative Intake/Output Cumulative Intake: 262 ML Cumulative Output: 325 ML Net Cumulative I/O: -63 ML Skin Evan Score, Total Score: 13 Skin Condition: Swollen Hygiene Hygiene Hygiene: Bathed;Araceli care Hygiene Level of Assistance: Completely dependent Skin Care / Prevention: Float Heels Oral Care: Performed Antimicrobial Skin Treatment: Yes Activity: Mobility Activity: In bed Repositioned: Supine;Semi Villegas's HOB Elevated (in degrees): HOB 30 Level of Assistance: Completely dependent Activity Assistive Device: Repositioning Device Distance Ambulated (ft): 0 FEET Range of Motion: All Extremities;Active;Passive Anti-Embolism Interventions: On Anti-embolism Mechanical Devices: Sequential compression devices Knee High Lines and Drains Peripheral IV Left Antecubital (Active) Placement Date/Time: 01/23/24 1055 Size (Gauge): 18 G Orientation: Left Location: Antecubital Site Prep: Chlorhexidine Technique: Anatomical Landmarks Insertion attempts (FOR ED ONLY): 1 Number of days: 7 Peripheral IV Left Antecubital (Active) Placement Date/Time: 01/23/24 1136 Orientation: Left Location: Antecubital Site Prep: ChlorhexidineTechnique: Anatomical Landmarks Insertion attempts (FOR ED ONLY): 1 Number of days: 7 Enteral - Nasal/Oral Naso-gastric Nostril/Nare;Right (Active) Placement Date/Time: 01/26/24 1430 Type: Naso-gastric Tube Location: Nostril/Nare;Right Name of person who removed: Nel Minor RN Number of days: 4 Enteral - Percutaneous Endoscopic Gastrostomy Abdomen;Midline;Upper (Active) Placement Date/Time: 01/30/24 1514 Placed by: Dr. Ruffin Type: Percutaneous Endoscopic Gastrostomy Tube Location: Abdomen;Midline;Upper Size (FR): 20 Lot Number: [id number] Procedure Tolerance: Sedated Number of days: 0 External Urinary Device 01/27/24 1000 (Active) Placement Date/Time: 01/27/24 1000 Number of days: 3 Continuous Medications niCARdipine, Last Rate: Stopped (01/27/24 1206) Labs Recent Labs Component Name 01/30/24 0429 01/29/24 0259 01/28/24 0341 SODIUM 139 140 139 POTASSIUM 4.1 4.1 4.0 CHLORIDE 101 100 102 CO2 26 27 26 BUN 17 15 15 CREATININE 0.80 0.74 0.75 GLUCOSE 146* 135* 126* CALCIUM 9.6 9.3 9.3 ALBUMIN 2.7* 2.7* 2.6* ALKPHOS 81 90 90 ALT 9 10 12 AST 14 14 17 TBIL 0.2 0.2 0.3 TPROT 7.8 8.2 7.8 EGFR >90 >90 >90 Narrative Pt RASS -1 NIH 19 Follows commands Expressive aphasia PEG placed today Ok to use for meds 1630 Ok for TF @ 1800 Family updated Hamlet Patel, RN 01/30/2024 6:57 PM This note is only as accurate as the information entered into [facility]. Be sure to review Orders and MAR for additional information * Luz Moser, PT - 01/30/2024 4:41 PM CDT PT was KASEY for PEG placement this afternoon when PT checked with RN. PT to continue to follow. Luz PT, CCI [phone] * Tarah Rodriguez, RN - 01/30/2024 3:17 PM CDT dobbhoff removed. PEG place abdomen. Bumper at 4.5cm. 2x2 and 4x4 dsg secured w/ paper tape. Abdominal binder placed. * Linda Carson SLP - 01/30/2024 2:48 PM CDT Speech Pathology: Attempted to see pt for follow-up. Pt currently KASEY for PEG placement. Will reattempt at a later time/date. Linda Tamez, MS [facility] [phone] * Linda Junior RD/HAFSA - 01/30/2024 1:45 PM CDT CLINICAL NUTRITION Pt follow-up for tube feeding. TF stopped plan for PEG placement today. Pt tolerating osmolite @ 30 ml/hr before NPO. Last BM 01/27. Labs reviewed. Current diet order: NPO Current tube feeding order: Osmolite 1.2 at 20 ml/hr, water flush per MD (576 kcal, 27 g pro, 394 ml free water) Medications: MEDICATIONS FOR CURRENT ENCOUNTER: ?? SCHEDULED MEDICATIONS: ?? *Hold/Avoid Medication, Other, 08 and 1999 ?? 0.9% NaCl injection 3 mL, Intracatheter, q8h ?? albuterol-ipratropium (Duo-Neb) nebulizer solution 3 mL, Inhalation, q6h ?? amLODIPine (Norvasc) tablet 10 mg, Enteral Tube, QDAY ?? aspirin chew tablet 81 mg, Enteral Tube, QDAY ?? atorvastatin (Lipitor) tablet 80 mg, Enteral Tube, AT BEDTIME ?? bisacodyl (Dulcolax) suppository 10 mg, Rectal, QDAY ?? clopidogrel (plaVIX) tablet 75 mg, Oral, QDAY ?? insulin aspart (NovoLOG) pen 0-18 Units, Subcutaneous, q6h ?? levETIRAcetam (Keppra) tablet 500 mg, Enteral Tube, BID ?? losartan (Cozaar) tablet 50 mg, Enteral Tube, AT BEDTIME ?? modafinil (Provigil) tablet 200 mg, Enteral Tube, QAM ?? senna-docusate (Senokot-S) tablet 2 tablet, Enteral Tube, BID ?? [MAR Hold] heparin injection 5,000 Units, Subcutaneous, BID ?? CONTINUOUS MEDICATIONS: ?? niCARdipine (Cardene) 50 mg in 0.9% NaCl IV 100 mL infusion, Intravenous, Continuous Recent Labs Component Name 01/30/24 0429 01/29/24 0259 01/28/24 0341 03/22/18 1147 01/29/18 0620 01/28/18 0655 01/27/18 0654 01/24/18 1542 01/11/18 1548 11/09/17 1521 11/19/15 0923 SODIUM 139 140 139 - - - - - - - - NA - - - - 136 136 138 - 140 - 140 POTASSIUM 4.1 4.1 4.0 - 3.9 3.3* 3.4* - 4.1 - - CHLORIDE 101 100 102 - - - - - - - - CL - - - - 97* 97* 100 - 102 - 106 CO2 26 27 26 - 26 30* 26 - 27 - 26 BUN 17 15 15 - 12 9 8 - 15 - 14 CREATININE 0.80 0.74 0.75 - 1.0 0.9 0.9 - 0.9 - 0.93 GLUCOSE 146* 135* 126* - 170* 144* 129* - 81 - - CALCIUM 9.6 9.3 9.3 - 9.1 8.7 9.1 - 9.6 - 9.2 ALBUMIN 2.7* 2.7* 2.6* - - - - - - - - ALB - - - - - - - - 3.8 - 4.1 PHOS 3.7 4.1 4.4 - 3.0 3.6 3.7 - 3.4 - - ANIONGAP 12 13 11 - 17 12 15 - 15 - - - = values in this interval not displayed. Blood Sugar Range Past 24 hours: Glucose Bedside (mg/dL) Av.3 mg/dL Min: 140 mg/dL Max: 181 mg/dL Last BM (Date): 01/28/24 Bowel Sounds (All Quadrants): Active (per nursing documentation) Plan/Recommendations: Restart TF as able. Monitor per nutrition guidelines. * Denise Layne, OT - 01/30/2024 12:59 PM CDT Occupational Therapy Treatment Summary: Chart reviewed for diagnosis and medical systems review. Nursing consented for OT. Explained purpose of OT and patient consented to participate in therapy. RECOMMENDATIONS/PLAN: Ongoing OT to increase independence and safety with daily tasks. OT Discharge Recommendations: Patient would benefit from intensive 3-hour multidisciplinary therapy This recommendation is made due to ongoing intensive OT functional needs: ability to actively participate in intensive therapy 3 hours/day, 5 days a week;patient has the need for more than one skilled therapy service;motivated to participate in therapy;not at baseline due to impaired ability to complete ADL's;functional mobility is significantly below baseline;likely to return to the community atdischarge with support system;patient and/or caregiver require specialized training;patient demonstrates a significant functional decline and would benefit from skilled therapy intervention to restore function;patient has the ability to progress and demonstrate measurable gains as a result of skilled therapy Recommended Transportation Method: Stretcher/Ambulance PPE worn by staff: gloves AM-PAC Daily Activity score for this patient is Daily Activity Raw Score:: 8 Precautions: NPO, SBP 120-180, O2>92%, fall, skin SUBJECTIVE: What's the weather today? Psychosocial: Patient Behaviors: Calm;Cooperative Family Behaviors: Not Present Patient's Goal for the Day: Unable to state but agrees to adls and B UE ROM/strengthening Pain Assessment: Pain Location #1 Pain Rating Score #1: 0 OBJECTIVE: Cognition: Orientation Level: Oriented to Person;Disoriented to Place;Disoriented to Situation;Disoriented to Time Cognition: Attention/concentration-decreased;Follows Commands- inconsistent;Follows one step commands ;Processing-delayed;Judgement-decreased;Safety awareness-decreased ADLs/Functional Mobility: Balance: Sitting - Static: Poor + (drifts/leans to R with time) Sitting - Dynamic: Poor Basic ADL: observation/clinical judgement Feeding: Total Assistance Oral Facial Hygiene: Maximal Assistance (pt worked with OT while seated upright in bed - using B hands to wash hands, using L UE to wash face, R hand with hand over hand assist to brush teeth with suction toothbrush) Upper Body Dressing: Maximal Assistance;Total Assistance Lower Body Dressing: Total Assistance Toileting: Total Assistance supine Sitting upright Further sitting upright BP 145/94 132/90 141/94 SpO2 (%) 90% 94% 94% O2 source Room air Room air Room air Activity tolerance/Oxygen Therapy: Activity Tolerance: Requires rest breaks $ O2 DEVICE: Room Air Modified [place] Score Current Modified Mervin Score: 5 ASSESSMENT: Pt in bed - appears drowsy but answers OT questions with increased time. BP taken in supine and sitting (see above). Pt assisted to upright sitting in bed. He is able to flex forward and pull trunk away from mattress. As he fatigues, he drifts to the right and needs assist to come back upright to middle. He worked with OT on grooming tasks - incorporating B UE. Noted increased movement today compared to previous session with R UE. Pt is able to grasp OT B hands and push and pull to command with resistance. He completed AAROM B UE shoulder flexion, elbow flexion and extension, and wrist flexion and extension. Pt worked on washing both hands with soapy cloth. He used B UEs for brushing teeth with suction toothbrush - hand over hand assist needed for strength at times. At one point, he asked OT what's the weather like today? He was oriented to self only - denies being in the hospital initially - but agrees later in the session. He worked on visually scanning OT in room right and left side trying to ID numbers with approx 50% accuracy and increased time. Please refer to the Filed Flowsheet for further details. Call light and phone in reach. All lines, monitors, IV's, equipment in place and intact pre and post visit. Educated patient in role/goal of OT. If this is the last OT visit, this note serves as the discharge summary. DANII Tomas/Boris Ascom: [phone] * Annamarie Bonilla RN - 01/30/2024 11:13 AM CDT Care Coordination Progress Note This [employer] Salesperson met with patient and discussed the patient's PLOF, the POC and anticipated DC plan. ?? 01/23/2024 Pt BIBEMS from home, he was found unresponsive by an recharger. Unknown LKW. Pt was found covered in urine with a nearby handle of vodka that was empty.??Pt was hypoxic for ems so was placed on 2L and a nasal airway was placed and the pt's mental status has improved en route. Code stroke was called in the ED, pt intubated and taken to MRi brain stat showing multiple infarcts in the brainstem including the left midbrain and left thalamus and right periventricular region. 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 Decision to take to IVR for exploration and potential management. (Ezepue). IVR procedure showed proximal basilar artery stenosis, angioplasty to 50%. Dissection to right distal vertebral artery.?? 01/22: Admitted to ICU 01/23: following simple commands. 01/24: Extubated 01/26: encephalopathic, concern for seizure -- cEEG, DHT, 01/27: okay to transfer to [address] [place] [address] Anticipated level of care at discharge: Acute Rehab Facility Anticipated level of care provider: [facility] Anticipated Discharge Date: 01/31/24 Transportation at Discharge: other (TBD) Orientation Level: Oriented to Person;Disoriented to Time;Disoriented to Situation;Disoriented to Place Family Support (Name and Phone): Extended Emergency Contact Information Primary Emergency Contact: Christi Vazquez Mobile Relation: Daughter Secondary Emergency Contact: Carol Vazquez [facility] Relation: Sister READMISSION RISK SCORE is 17 at 11:13 AM 01/30/2024. Portions of this note have been copied from the medical record, but edited appropriately to accurately reflect the patient's current clinical state. Annamarie Bonilla RN Case Management - ICU 3[facility] & 3[facility] Ascom: [phone] O: [id number] Stroke Psychosocial Assessment Diagnosis: The primary encounter diagnosis was Encounter for central line placement. Diagnoses of Altered mental status, unspecified altered mental status type, Hypoxia, Basilar artery thrombosis, Acute hypoxemic respiratory failure (HCC), and Nausea and vomiting, unspecified vomiting type were also pertinent to this visit. Contacts/Support: Extended Emergency Contact Information Primary Emergency Contact: Christi Vazquez Mobile Relation: Daughter Secondary Emergency Contact: Carol Vazquez [facility] Relation: Sister Insurance: Payer/Plan Subscriber Name Rel Member # Group # [employer]* BITA VAZQUEZ* Self [id number] [address] [id number] Prior level of functioning: Cognition: Orientation Level: Oriented to Person;Disoriented to Time;Disoriented to Situation;Disoriented to Place Mental Health History: Employment/income status: works at [employer] Alcohol/Drug/Tobacco: Social History Socioeconomic History ??? Marital status: Legally Spouse name: Not on file ??? Number of children: 1 ??? Years of education: 16 ??? Highest education level: Bachelor's degree (e.g., BA, AB, BS) Occupational History ??? 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 Smoking status: Some Days Types: Cigars Start date: 1997 ??? Smokeless tobacco: Never ??? Tobacco comments: 3-4 times / month-2019 says 1x/month Vaping Use ??? Vaping Use: Never used Substance and Sexual Activity ??? Alcohol use: Yes Alcohol/week: 10.0 standard drinks of alcohol Types: 10 Standard drinks or equivalent per week Comment: 0-50+ a week ??? Drug use: Yes Types: Marijuana ??? Sexual activity: Not Currently Other Topics Concern ??? Not on file Social History Narrative Lives in apartment alone Pets none Hobby watch tv, golf Social Determinants of Health Financial Resource Strain: Low Risk (01/24/2024) Overall Financial Resource Strain (CARDIA) ??? Difficulty of Paying Living Expenses: Not hard at all Food Insecurity: No Food Insecurity (01/24/2024) Hunger Vital Sign ??? Worried About Running Out of Food in the Last Year: Never true ??? Ran Out of Food in the Last Year: Never true Transportation Needs: No Transportation Needs (01/24/2024) PRAPARE - Transportation ??? Lack of Transportation (Medical): No ??? Lack of Transportation (Non-Medical): No Stress: Not on file Housing Stability: Unknown (01/24/2024) Housing Stability Vital Sign ??? Unable to Pay for Housing in the Last Year: No ??? Number of Places Lived in the Last Year: Not on file ??? Unstable Housing in the Last Year: No Prior Stroke Co-morbidities Past Medical History: Diagnosis Date ??? Anemia 01/2018 ??? Asthma (HCC) ??? Chest congestion 08/05/2020 ??? Confusional arousals 08/05/2020 ??? Controlled type 2 diabetes mellitus without complication, without long-term current use of insulin (HCC) 09/28/2011 ??? 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 Cough syncope 2017 ??? Daytime sleepiness 08/05/2020 ??? Essential hypertension 01/23/2018 ??? Hyperlipidemia 08/05/2020 ??? Inadequate sleep hygiene 08/05/2020 ??? Morbid obesity with BMI of 40.0-44.9, adult (HCC) 08/05/2020 ??? Nocturia 08/05/2020 ??? Obesity (BMI 30-39.9) 04/24/2012 ??? Other chest pain 09/04/2018 ??? S/P CABG x 3 01/24/2018 ??? Snoring 08/05/2020 ??? Superficial postoperative wound infection 02/23/2018 sternum ??? Wears glasses 08/05/2020 ??? Weight gain 08/05/2020 40# past 6-8 months-covid ??? Wound of sternal region 02/23/2018 Medication Needs: TBD Established Resources: SW Referral: No If patient requires HHC at discharge, he/she requests: Anticipated level of care provider: [facility] IP Equipment at Home: List DME pt. requires but does not have.: None PCP: If no PCP, action taken: Transportation: Transportation at discharge: other (TBD) Coping Strengths: Short Term Goals: Anchor Tacker Goals: Patient and Family Questions/Concerns: * Yessenia Kerr MD - 01/30/2024 10:51 AM CDT INTERVENTIONAL STROKE NEUROLOGY PROGRESS NOTE Hospital Day: 7 A 63 year old male was admitted with PMH of DM, HTN, alcohol abuse who presented on 01/23/2024 10:27AM with chief complaint of unresponsiveness. He was found down at his home by the recharger person he had scheduled to visit his home today. His last known well was not clear. I spoke with his sister who said they had not seen or spoken to him in the last 24 hrs. He was able to follow some command upon arrival to the hospital but had a hard time moving his lower limbs. Suspicion of posterior circulation stroke was entertained. MRI brain stat was quickly obtained showing multiple infarcts in the brainstem including the left midbrain and left thalamus and right periventricular region. 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 Decision to take to IVRfor exploration and potential management. He was intubated in the ER for airway protection. CTH stable. Family reports L pupil has been larger for 2+months. Extubated 01/24. Reported seizure activity on 01/26, started on Keppra. No further seizure since. 01/30/2024: Patient in bed, drowsy. He awaken easily and follow simple commands. PEG today. Plavix needs to be given right after PEG. MEDICATIONS FOR CURRENT ENCOUNTER: SCHEDULED MEDICATIONS: *Hold/Avoid Medication, Other, 0800 and 2000 0.9% NaCl injection 3 mL, Intracatheter, q8h albuterol-ipratropium (Duo-Neb) nebulizer solution 3 mL, Inhalation, q6h amLODIPine (Norvasc) tablet 10 mg, Enteral Tube, QDAY aspirin chew tablet 81 mg, Enteral Tube, QDAY atorvastatin (Lipitor) tablet 80 mg, Enteral Tube, AT BEDTIME bisacodyl (Dulcolax) suppository 10 mg, Rectal, QDAY insulin aspart (NovoLOG) pen 0-18 Units, Subcutaneous, q6h levETIRAcetam (Keppra) tablet 500 mg, Enteral Tube, BID losartan (Cozaar) tablet 50 mg, Enteral Tube, AT BEDTIME modafinil (Provigil) tablet 200 mg, Enteral Tube, QAM senna-docusate (Senokot-S) tablet 2 tablet, Enteral Tube, BID ??? [MAR Hold] heparin injection 5,000 Units, Subcutaneous, BID CONTINUOUS MEDICATIONS: ??? niCARdipine (Cardene) 50 mg in 0.9% NaCl IV 100 mL infusion, Intravenous, Continuous PRN MEDICATIONS: Or Or 0.9% NaCl injection 1-10 mL, Intracatheter, PRN acetaminophen (Tylenol) tablet 650 mg, Enteral Tube, q4h PRN dextrose 10 % IV bolus, Intravenous, PRN dextrose 10 % IV bolus, Intravenous, PRN glucagon (Glucagen) injection 1 mg, Subcutaneous, PRN hydrALAZINE (Apresoline) injection 10 mg, Intravenous, q1h PRN ondansetron (Zofran) injection 4 mg, Intravenous, q4h PRN ??? prochlorperazine (Compazine) injection 10 mg, Intravenous, q4h PRN Peripheral IV Left Antecubital (Active) Placement Date/Time: 01/23/24 1055 Size (Gauge): 18 G Orientation: Left Location: Antecubital Site Prep: Chlorhexidine Technique: Anatomical Landmarks Insertion attempts (FOR ED ONLY): 1 Number of days: 6 Peripheral IV Left Antecubital (Active) Placement Date/Time: 01/23/24 1136 Orientation: Left Location: Antecubital Site Prep: ChlorhexidineTechnique: Anatomical Landmarks Insertion attempts (FOR ED ONLY): 1 Number of days: 6 Enteral - Nasal/Oral Naso-gastric Nostril/Nare;Right (Active) Placement Date/Time: 01/26/24 1430 Type: Naso-gastric Tube Location: Nostril/Nare;Right Name of person who removed: Nel Minor RN Number of days: 3 Puncture Site Femoral (Active) Date/Time: 01/23/24 1344 Placed by: Alexsander Orientation: Right Puncture Site Location: Femoral Puncture Type: Arterial Number of days: 6 External Urinary Device 01/27/24 1000 (Active) Placement Date/Time: 01/27/24 1000 Number of days: 3 BP 165/91 Pulse 97 Temp 98.7 ??F (37.1 ??C) (Axillary) Resp (!) 34 Ht 1.93 m (6' 4 ) Wt 121.5 kg (267 lb 13.7 oz) SpO2 93% Wt Readings from Last 3 Encounters: 01/30/24 121.5 kg (267 lb 13.7 oz) 09/17/23 (!) 148.6 kg (327 lb 9.6 oz) 05/07/23 (!) 145.2 kg (320 lb) Multisystem Examination: Neck: ROM intact Respiratory: No respiratory distress. Cardiovascular: Normal heart rate, Normal rhythm. GI: Soft, No tenderness Integument: Warm, Dry Neurological Examination: The patient is Drowsy, but awakens easily. He follows simple commands. Speech is expressive aphasia, dysarthric and soft. L Pupil is 5 mm R pupil is 3mm Oculocephalic movements are present. Hearing intact. Motor: No involuntary movements were observed. Facial movements are asymmetric on the right. Strength is 3/5 in LUE, 3/5 RUE and 1/5 in the L LE and 1 in the R LE. Sensory: Facial and peripheral sensation are intact. Coordination: Unable to perform finger to nose. Gait: Not tested due to patient condition. Labs Recent Labs Component Name 01/24/24 0443 07/23/20 0649 01/20/19 1134 CHOL 229* 254* 258* TRIG 179* 179* 63 HDL 32* 48 63 LDLCALC 161* 173* 179* Recent Labs Component Name 01/30/24 0429 01/29/24 0259 01/28/24 0341 SODIUM 139 140 139 POTASSIUM 4.1 4.1 4.0 CHLORIDE 101 100 102 CO2 26 27 26 BUN 17 15 15 CREATININE 0.80 0.74 0.75 GLUCOSE 146* 135* 126* CALCIUM 9.6 9.3 9.3 ALBUMIN 2.7* 2.7* 2.6* ALKPHOS 81 90 90 ALT 9 10 12 AST 14 14 17 TBIL 0.2 0.2 0.3 TPROT 7.8 8.2 7.8 EGFR >90 >90 >90 Evaluation: CT head 01/22: 1. No acute intracranial hemorrhage. 2. Involutional changes with chronic lacunar infarctions and ischemic microangiopathy. 3. Age indeterminate infarction left thalamus and less likely a sequela of trans-synaptic degeneration. MRI brain if there is concern for acute ischemia. CT head 01/23: No acute intracranial hemorrhage. Stable chronic findings. CT angio: Short segment severe, string-like stenosis of the lower basilar artery just above the vertebral confluence. Cerebral Angiogram Impression 01/23/2024: A severe stenosis in the proximal basilar artery, s/p successful balloon angioplasty. Residual stenosis about 50% in lateral view Echo: ??? Left??Ventricle: Left ventricle size is normal. Mildly to moderately increased wall thickness. Normal systolic function. EF 50-55%. Normal wall motion. Diastolic function is indeterminate. ??? Right??Ventricle: Right ventricle is not well visualized. ??? Aortic??Valve: Mild regurgitation. EKG: Results for orders placed or performed during the hospital encounter of 01/23/24 EKG 12-LEAD Result Value Ref Range Ventricular Rate 96 BPM Atrial Rate 96 BPM P-R Interval 146 ms QRS Duration ms 78 ms Q-T Interval ms 360 ms QTC Calculation (Bezet) 454 ms Calculated P [place] 79 degrees Calculated R [place] 76 degrees Calculated T [place] -77 degrees Interpretation EKG Normal sinus rhythm ST & T wave abnormality, consider inferolateral ischemia Abnormal ECG When compared with ECG of 26-JUL-2022 16:28, Premature ventricular complexes are no longer Present Non-specific change in ST segment in Anterior leads Inverted T waves have replaced nonspecific T wave abnormality in Inferior leads T wave amplitude has increased in Anterior leads Confirmed by JUSTICE PURVIS MD ([id number]) on 01/23/2024 2:35:44 PM Tele: Cardiac Rhythm: Sinus Rhythm (01/30/24 0800) LDL: Recent Labs Component Name 01/24/24 0443 07/23/20 0649 01/20/19 1134 LDLCALC 161* 173* 179* HgBA1C: Recent Labs Component Name 01/23/24 1039 09/17/23 1330 10/18/22 1045 HGBA1C 6.1* 6.5 5.9 This patient will benefit from a SGLT-2 or GLP-1, this requires close follow up with PCP or endocrine and lab monitoring. Due to this reason deferred treatment until outpatient follow up. Initial documented NIHSS Score: NIH Total: 13 (01/23/24 1048) Last Documented NIHSS Score: NIH Total: 19 (01/30/24 0800) Depression Screen Score = Does not meet criteria for screening: Aphasia PHQ-2 PHQ-9 Therapy Recommendations: Discharge Discharge Equipment Recommendations: To Be Determined (01/29/241428) OT Discharge Recommendations: Patient would benefit from intensive 3-hour multidisciplinary therapy(01/29/241428) This recommendation is made due to ongoing intensive OT functional needs: ability to actively participate in intensive therapy 3 hours/day, 5 days a week;patient has the need for more than one skilled therapy service;motivated to participate in therapy;not at baseline due to impaired ability to complete ADL's;functional mobility is significantly below baseline;likely to return to the community atdischarge with support system;patient and/or caregiver require specialized training;patient demonstrates a significant functional decline and would benefit from skilled therapy intervention to restore function;patient has the ability to progress and demonstrate measurable gains as a result of skilled therapy (01/29/241428) PT Discharge Recommendations: Patient would benefit from intensive 3-hour multidisciplinary therapy(01/29/241427) This recommendation is made due to ongoing intensive PT functional needs: patient has the need for more than one skilled therapy service;patient demonstrates a significant functional decline and would benefit from skilled therapy intervention to restore function;patient has the ability to progress and demonstrate measurable gains as a result of skilled therapy (01/29/241427) Recommended Transportation Method: To be Determined (01/29/241428) Modified [place] Score: Preadmission Modified [place] Score: 0 (01/26/24 0936) Current Modified [place] Score: 5 (01/29/241428) Procedures: Basilar artery??angioplasty 01/23/2024 IMPRESSION - Acute ischemic stroke: Posterior circulation syndrome - Critical Basilar stenosis/thrombosis s/p successful angioplasty - Acute resp failure s/p intubation and mechanical ventilation - Poorly controlled DM - HTN - Alcohol use disorder - Leucocytosis: r/o infectious/stress induced/r/o Asp PNA - 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 - Statin: Lipitor - VTE prevention with SCDs. Hold Heparin for PEG. - Allow permissive HTN - Maintain euglycemia, SSI - Keppra 500 mg BID - Nutrition: NPO - PT/OT and speech therapy ongoing. - PEG today Multidisciplinary rounds have been completed today with the following disciplines: Stroke neurology, Stroke MERCHANDISE FLOW MANAGER, and nursing. Travis Bhat, MSN, CORPORATE FINANCIAL ANALYST, MERCHANDISE FLOW MANAGER-C, SCRN, CNRN Interventional Vascular Neurology [facility] ASCOM #[id number] ATTESTATION I have seen and examined the patient with the nurse practitioner. I have re- confirmed the paula elements of the history and performed an examination. I have discussed the patient's care with the nurse practitioner.? 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 He is lethargic yet able to wake up and follow commands.??He??remained able to move all limbs with weakness on the left limbs. He shows ptosis in the left eyelid and limited eye movements consistent with third nerve palsy. He also demonstrates severe neurogenic dysphagia and dysarthria. Tube nutrition ongoing. A spell suggestive of seizure activity; thus, AED started though EEGwas normal. ?? PEG will be placed today, and we will start the plavix right after procedure is complete. Continue to monitor. ? Yessenia Kerr MD Interventional Vascular Neurology?? [facility] Pager- [phone] Nurse Practitioner (ASCOM [id number]) ? * Gustavo Taveras RCP - 01/30/2024 8:22 AM CDT Noninvasive ventilation order has been verified will continue to assess. Orders as follow ?? CPAP 5 cmH2O * Ny Altamirano RN - 01/29/2024 6:43 PM CDT Problem: Fall Risk Goal: Patient will remain free of falls Outcome: Progressing RAZA VAZQUEZ will have no falls this shift effective by frequent rounding and bed alarm when clinically relevant. Problem: Skin Integrity Goal: Skin integrity is maintained or improved Outcome: Progressing RAZA VAZQUEZ will have no worsening or new skin breakdown this shift effective by turning. Turing necessity will be assessed due to patients functional status and Evan score. * Macho Solis - 01/29/2024 4:22 PM CDT Physical Therapy ICU Treatment Chart reviewed for diagnosis and medical systems review. RN consented for PT. Explained purpose of PT and patient consented to participate in therapy. 63 y/o M pmh DM, HTN, ethoh abuse, CAD s/p CABG (2018) ?? ICU admit 01/22 found down at home, unknown last time known well ?? Imaging showing acute ischemic stroke - areas of infarct in basal artery - L midbrain/thalamus ?? RECOMMENDATIONS/PLAN: continue acute PT services with progression of EOB/OOB activity Advance standing activities in combolizer as tolerated continue cognitive exercise/stimulation Continue visual assessment and monitoring PT Discharge Recommendations: Patient would benefit from intensive 3-hour multidisciplinary therapy This recommendation is made due to ongoing intensive PT functional needs: patient has the need for more than one skilled therapy service;patient demonstrates a significant functional decline and would benefit from skilled therapy intervention to restore function;patient has the ability to progress and demonstrate measurable gains as a result of skilled therapy Recommended Transportation Method: To be Determined PPE worn by staff: gloves AM-PAC Basic mobility score for this patient is Mobility Raw Score:: 6 Precautions: Full code, fall, PIV, Central line, NG, External cath, SBP maintain 120 to 180, SPO2 >92 SUBJECTIVE:Subjective: Pt consented to therapy services Pain Assessment: Pain Location #1 Pain Scale/Observation: Behaviors Pain Rating Score #1: 0 Sedation Level #1: 2-Slightly drowsy, easy to arouse OBJECTIVE: Cognition: Orientation Level: Oriented to Person;Disoriented to Time;Disoriented to Situation;Disoriented to Place Cognition: Follows one step commands;Processing-delayed;Judgement-decreased Level of Consciousness-Adult: Alert;Eyes Open Spontaneously Participation: Active Participation ROM/Strength: Remains grossly limited R > L R UE able to reach to face L UE able to machine pack assembler with diminished strength, close fist Antelmo LE grossly week R > L, moved toes with cueing, some gross LE movement with extensive cueing PROM all extremities WFL Bed Mobility: Rolling: Total Assistance Supine to Sit: Total Assistance;X 2 Sit to Supine: Total Assistance;X 2 Transfers: Sit to Stand: Total Assistance (in combolizer) Stand to Sit: Total Assistance Bed to Chair: Total Assistance;X 3 Type of Transfer: Lateral Transfer Mobility: Distance Ambulated (ft): 0 FEET Ambulation: Level of Assistance: Activity Does Not Occur Activity Tolerance: Activity Tolerance: Requires rest breaks Vital signs: BP taken on L UE Before mobility After mobility BP 148/109 156/100 HR (bpm) 89 104 RR (breaths/min) 28 32 SpO2 (%) 95 95 Notes from Vital Signs: Pt tachycardic in low 100s-110s throughout session but remained stable and asymptomatic. Pt's SBP read in stable 110s in standing, returned to seated position after brief period and SBP returned to within 120- 180 parameter. RR appears improved in standing rating low 20s compared to the 30s in seated/supine in bed. Pt positive orthostatic with systolic drop from 150 to 110, denied dizziness or symptoms. ASSESSMENT: Pt tolerated session well with stable vitals signs and no reported/observed dizziness, SOB, or other adverse s/s. Pt continues to present drowsy but increases alertness throughout session with mobility, appeared most alert in standing in combolizer. Pt has continued difficulty speaking with some yes/no verbalizations, grunting mhm, responsive withshaking yes/no as well. Pt tolerated AROM, PROM, and stretching antelmo LEs in supine with PT assist. Pt tolerated ~ 1 minute of standing in combolizer before pt was placed in a seated position due to BP stable in the 110s (SBP goal per MD is 120-180). Pt performed cognitive exercise in standing including orientation questions and visual exercise with OT. Pt appeared to tolerate standing/weightbearing well. Overall, pt remains drowsy with increased alertness with stimulation and with gross weakness R >L resulting in need for significant assist for all ADLs and the use of specialized equipment for sitting/standing activity. Pt would benefit from IPR following discharge to address ongoing impairments with a likely ability to progress with skilled therapy services. Call light and phone in reach with alarm activated. All lines, monitors, IV's, equipment in place and intact pre and post visit. RN notified of patient's performance/location end of session. Pt educated in PT plan of care, fall precautions, and benefits of OOB activity. Refer to Plan of Care for PT goals. See Filed Flowsheet under Summary for further details. RECOMMENDATIONS/PLAN: Progress as tolerated. If this is the last Physical Therapy visit, this serves as the discharge summary. Davon SPT Ascom [phone] * Linda Carson, NETWORK RELATIONS CONSULTANT - 01/29/2024 4:16 PM CDT Speech Pathology: Pt seen this date for dysphagia f/u. Raza Vazquez is a 63 year old male with a PMH of the following: Past Medical History: Diagnosis Date ??? Anemia 01/2018 ??? Asthma ([facility]) ??? Chest congestion 08/05/2020 ??? Confusional arousals 08/05/2020 ??? Controlled type 2 diabetes mellitus without complication, without long-term current use of insulin ([facility]) 09/28/2011 ??? 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 Cough syncope 2017 ??? Daytime sleepiness 08/05/2020 ??? Essential hypertension 01/23/2018 ??? Hyperlipidemia 08/05/2020 ??? Inadequate sleep hygiene 08/05/2020 ??? Morbid obesity with BMI of 40.0-44.9, adult ([facility]) 08/05/2020 ??? Nocturia 08/05/2020 ??? Obesity (BMI 30-39.9) 04/24/2012 ??? Other chest pain 09/04/2018 ??? S/P CABG x 3 01/24/2018 ??? Snoring 08/05/2020 ??? Superficial postoperative wound infection 02/23/2018 sternum ??? Wears glasses 08/05/2020 ??? Weight gain 08/05/2020 40# past 6-8 months-covid ??? Wound of sternal region 02/23/2018 Patient was admitted for unresponsiveness. MRI brain showing multiple infarcts in the brainstem including the left midbrain and left thalamus and right periventricular region. CTA was significant forthrombosis of the basilar artery V short segment stenosis, pt taken to IVR. Intubated 01/22-01/24. Nohx of ST per chart review. NIH: Date: 01/27/2024 NIH Total: 14 S: Pt upright in combolizer chair. Very drowsy and having difficulty following commands. Dysphagia Oral [facility] exam significant for minimal to absent oral-motor movement this date. Oral care completedvia LANDON suction kit, pt frequently keeping mouth clenched shut when attempting oral care. Pt observed with trials of ice chips x1. Oral phase significant for absent bolus manipulation. Laryngeal elevation restricted to palpation with immediate/prolonged cough response. Cough is congested, suspect that pt is having difficulty managing secretions. Overall, pt appears to present with suspected severe pharyngeal dysphagia and is at high risk for aspiration 2/2 acute brainstem CVA and recent intubation/extubation. Recommend STRICT NPO, it is appropriate for pursue long- term alternative nutrition/hydration. ST to follow. Speech/Language Pt significantly drowsy which limited cognitive linguistic treatment. Pt nodded his head in response to yes/no questions. Did not verbalize this date. Patient/Caregiver goals: Did not state Assessments: Dysphagia ?? Primary Diagnostic Impression - Oral: Moderate Primary Diagnostic Impression - Pharyngeal: Dysphagia;Severe (suspected) Risk For Aspiration: Severe ORELLANA Assessment: MASA Score: 125/200 ?? Dysphagia Severity Level: Severe (less than or equal to 138) / Risk for Aspiration: Severe (lessthan or equal to 140) Risk of aspiration is reduced with the use of diet modification/compensatory strategies. Speech & Integrative Language Orientation: Oriented x 2 Auditory Comprehension: Severe impairments Verbal Expression: Severe impairment Problem Solving/Reasoning: (DNT) Memory: Severe impairment Recommendations for Dysphagia: 1. Diet Solids Recommendation: NPO 2. Diet Liquids Recommendation: NPO 3. Recommended Form of Meds: NPO;Feeding Tube 4. Consider long-term alternative nutrition/hydration Risk For Aspiration: Severe Strategies Include: Oral Care Guidelines: Adequate oral hygiene is extremely important in preventing respiratory infection/pneumonia 1. Provide THOROUGH oral care AT LEAST EVERY 2 HOURS 2. Items to use: swabs, toothbrushes, tweezers, oral debridement solution, mouth wash, Yankauer suction, LANDON oral suction kit 3. All secretions (dried or moist) should be removed from all oral cavity surfaces including: ? Hard palate and velum ? Teeth/gums ? Tongue ? Lips ? Cheeks/buccal cavities ? Pharynx (using suction) 4. Once secretions have been adequately removed, oral care should be provided every two hours to ensure the pt's oral cavity is clean and that any secretions that may be aspirated are not high in bacteria content Recommendations for Integrative Language Deficits: 1. Continue acute ST 2. INTENSIVE ST at the next level of care Results discussed with: Results discussed with:: Patient;Nursing;Caregiver Follow Up: Recommendations: NPO;With Alternative Nutrition;Dysphagia Treatment;Cognitive- linguistic Assessment Follow Up: Speech therapy to follow. Please refer to Care Plan. Education provided re: results and recommendations. If this is the last Speech Therapy visit, this serves as the discharge summary. Thank you for this referral. Linda Tamez MS [facility]-NETWORK RELATIONS CONSULTANT [phone] * Sloane Caballero OT - 01/29/2024 3:50 PM CDT Occupational Therapy Treatment Summary: Chart reviewed for diagnosis and medical systems review. Nursing consented for OT. Explained purpose of OT and patient consented to participate in therapy. RECOMMENDATIONS/PLAN: Continue skilled OT. Discharge Equipment Recommendations: To Be Determined OT Discharge Recommendations: Patient would benefit from intensive 3-hour multidisciplinary therapy This recommendation is made due to ongoing intensive OT functional needs: ability to actively participate in intensive therapy 3 hours/day, 5 days a week;patient has the need for more than one skilled therapy service;motivated to participate in therapy;not at baseline due to impaired ability to complete ADL's;functional mobility is significantly below baseline;likely to return to the community atdischarge with support system;patient and/or caregiver require specialized training;patient demonstrates a significant functional decline and would benefit from skilled therapy intervention to restore function;patient has the ability to progress and demonstrate measurable gains as a result of skilled therapy Recommended Transportation Method: To be Determined PPE worn by staff: gloves PPE worn by patient: socks - clean;gown - patient, clean AM-PAC Daily Activity Raw Score:: 8 Precautions: Fall, Tele, O2, NG, Central Line, PIV x2, Male external purewick, SBP 120-180 SUBJECTIVE: Pt supine in bed upon OT arrival, agreeable to OT tx session. Pt continues to be very drowsy however is still able to actively participate in all activities. Psychosocial: Patient Behaviors: Calm;Cooperative Family Behaviors: Not Present Pain Assessment: Pain Location #1 Pain Scale/Observation: Behaviors;Faces;Numeric (0-10) Pain Rating Score #1: 0 OBJECTIVE: Cognition: Orientation Level: Oriented to Person;Disoriented to Time;Disoriented to Situation;Disoriented to Place Cognition: Attention/concentration-decreased;Follows one step commands;Processing-delayed;Judgement-decreased;Safety awareness- decreased;Memory impairment-short term Attention Span: Attends with cues to redirect;Difficulty attending to directions Memory: Decreased recall of recent events;Decreased short term memory Following Commands: Follows one step commands with repetition/cues Safety Judgement: Decreased awareness of need for safety Awareness of Errors: Assistance required to identify errors made;Assistance required to correct errors made Problem Solving: Assistance required to identify errors made;Assistance required to implement solutions ADLs/Functional Mobility: Bed Mobility: Rolling: Total Assistance Supine to Sit: Total Assistance;X 2 Sit to Supine: Total Assistance;X 2 Transfers: Sit to Stand: Total Assistance (in combolizer) Stand to Sit: Total Assistance Bed to Chair: Total Assistance;X 3 Type of Transfer: Lateral Transfer Mobility; Distance Ambulated (ft): 0 FEET Ambulation: Level of Assistance: Activity Does Not Occur Basic ADL: observation/clinical judgement Feeding: Total Assistance (NPO / NG) Oral Facial Hygiene: Maximal Assistance (with RUE) Bathing: Total Assistance Upper Body Dressing: Total Assistance Lower Body Dressing: Total Assistance Toileting: Total Assistance (Beltran) RUE Assessment: RUE Assessment AROM - Right Upper Extremity: Exceptions PROM - Right Upper Extremity: Within Functional Limits Strength - Right Upper Extremity: Exceptions Tone - Right Upper Extremity: Exceptions General RUE Tone: Hypotonic-Severe Sensation - Right Upper Extremity: Within Normal Limits Military Equipment Specialist Strength - Right Upper Extremity: 10/19 LUE Assessment: LUE Assessment AROM - Left Upper Extremity: Within Functional Limits PROM - Left Upper Extremity: Within Functional Limits Strength - Left Upper Extremity: Within Functional Limits Tone - Left Upper Extremity: Within Functional Limits Sensation - Left Upper Extremity: Within Normal Limits Military Equipment Specialist Strength - Left Upper Extremity: WFL Functional Level of Impairment: Functional Level of Comprehension: Minimal assistance (minimal prompting) pt expends 75% or more effort Functional Level of Expression: Moderate assistance (moderate prompting) pt expends 50-74% effort Functional Level of Social Interaction: Maximal assistance (maximum prompting) pt expends 25-49% effort Functional Level of Memory: Maximal assistance (maximum prompting) pt expends 25-49% effort Functional Level of Problem Solving: Maximal assistance (maximum prompting) pt expends 25-49% effort Activity tolerance/Oxygen Therapy: O2 L/M: 0 $ O2 DEVICE: Room Air Modified Mervin Score Current Modified Mervin Score: 5 ASSESSMENT: Pt tolerates session fairly well. Pt denies any pain, dizziness, SOB, or lightheadedness when asked. Pt completes lateral transfer from bed>chair with total A x3. Pt strapped into chair with finger width in between. Pt transitioned to standing mode stopping every 10d to assess lines and BP. BP remained stable in 150s-160s SBP. Pt placed into full stand to WB through legs while OT standing in front of pt. Pt provided word RAZA Pt able to track with R medially and then to midline however R eye remain shut due to ptosis from CN III palsy. Pt was unable to read the word and tell therapist what it said, but was able to repeat letter. Pt observed to move LUE, LLE WFL and wiggle R toes. Minimal R shoulder elevation seen against gravity. Pt able to tolerate approx. 1 minute standing in combolizer before a drop in SBP from 150s to 110s. Pt returned to seated position with improvement in BP to 140s. Pt left seated in combolizer, pt signals OT for remote at end of session and mouth volume. Overall, pt demos significant decline from baseline level of function where pt wasindep and now pt requires physical assist for all ADLs and functional mobility. Pt limited by decreased AROM, strength, insight, safety awareness, endurance, balance, vision, and pt would benefit from continued skilled OT to maximize independence with ADLs and functional mobility. ?? Please refer to the Filed Flowsheet for further details. Call light and phone in reach. All lines, monitors, IV's, equipment in place and intact pre and post visit. RNNy, notified of patient's performance/location end of session. Educated patient/family in role of OT, goals of OT, benefits of OOB activity, transfers, ADLs, UE exercises, safety If this is the last OT visit, this note serves as the discharge summary. SHELLY Anton/Boris [phone] * Sloane Caballero OT - 01/29/2024 3:50 PM CDT Problem: General Goal: STG(1)-Patient will Description: OTR to assess OOB Outcome: Progressing Goal: STG-Patient will Description: Tolerate sitting EOB for approx. 5 minutes w/ SBA to prepare for ADLs Outcome: Progressing Goal: STG-Patient will Description: Complete 1-2 seated ADL tasks w/ min assist Outcome: Progressing * Yessenia Kerr MD - 01/29/2024 3:09 PM CDT INTERVENTIONAL STROKE NEUROLOGY PROGRESS NOTE Hospital Day: 6 A 63 year old male was admitted with PMH of DM, HTN, alcohol abuse who presented on 01/23/2024 10:27AM with chief complaint of unresponsiveness. He was found down at his home by the recharger person he had scheduled to visit his home today. His last known well was not clear. I spoke with his sister who said they had not seen or spoken to him in the last 24 hrs. He was able to follow some command upon arrival to the hospital but had a hard time moving his lower limbs. Suspicion of posterior circulation stroke was entertained. MRI brain stat was quickly obtained showing multiple infarcts in the brainstem including the left midbrain and left thalamus and right periventricular region. 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 Decision to take to IVRfor exploration and potential management. He was intubated in the ER for airway protection. CTH stable. Family reports L pupil has been larger for 2+months. Extubated 01/24. Reported seizure activity on 01/26, started on Keppra. No further seizure since. 01/29/2024: Patient in bed, drowsy. He awaken easily and follow simple commands. Plan for PEG tomorrow. MEDICATIONS FOR CURRENT ENCOUNTER: SCHEDULED MEDICATIONS: 0.9% NaCl injection 3 mL, Intracatheter, q8h albuterol-ipratropium (Duo-Neb) nebulizer solution 3 mL, Inhalation, q6h amLODIPine (Norvasc) tablet 10 mg, Enteral Tube, QDAY aspirin chew tablet 81 mg, Enteral Tube, QDAY atorvastatin (Lipitor) tablet 80 mg, Enteral Tube, AT BEDTIME bisacodyl (Dulcolax) suppository 10 mg, Rectal, QDAY clopidogrel (plaVIX) tablet 75 mg, Enteral Tube, QDAY heparin injection 5,000 Units, Subcutaneous, BID insulin aspart (NovoLOG) pen 0-18 Units, Subcutaneous, q6h levETIRAcetam (Keppra) tablet 500 mg, Enteral Tube, BID losartan (Cozaar) tablet 50 mg, Enteral Tube, AT BEDTIME modafinil (Provigil) tablet 200 mg, Enteral Tube, QAM ??? senna-docusate (Senokot-S) tablet 2 tablet, Enteral Tube, BID CONTINUOUS MEDICATIONS: ??? niCARdipine (Cardene) 50 mg in 0.9% NaCl IV 100 mL infusion, Intravenous, Continuous PRN MEDICATIONS: Or Or 0.9% NaCl injection 1-10 mL, Intracatheter, PRN acetaminophen (Tylenol) tablet 650 mg, Enteral Tube, q4h PRN dextrose 10 % IV bolus, Intravenous, PRN dextrose 10 % IV bolus, Intravenous, PRN glucagon (Glucagen) injection 1 mg, Subcutaneous, PRN hydrALAZINE (Apresoline) injection 10 mg, Intravenous, q1h PRN ondansetron (Zofran) injection 4 mg, Intravenous, q4h PRN ??? prochlorperazine (Compazine) injection 10 mg, Intravenous, q4h PRN Peripheral IV Left Antecubital (Active) Placement Date/Time: 01/23/24 1055 Size (Gauge): 18 G Orientation: Left Location: Antecubital Site Prep: Chlorhexidine Technique: Anatomical Landmarks Insertion attempts (FOR ED ONLY): 1 Number of days: 6 Peripheral IV Left Antecubital (Active) Placement Date/Time: 01/23/24 1136 Orientation: Left Location: Antecubital Site Prep: ChlorhexidineTechnique: Anatomical Landmarks Insertion attempts (FOR ED ONLY): 1 Number of days: 6 Enteral - Nasal/Oral Naso-gastric Nostril/Nare;Right (Active) Placement Date/Time: 01/26/24 1430 Type: Naso-gastric Tube Location: Nostril/Nare;Right Name of person who removed: Nel Minor RN Number of days: 3 Puncture Site Femoral (Active) Date/Time: 01/23/24 1344 Placed by: Ezepue Orientation: Right Puncture Site Location: Femoral Puncture Type: Arterial Number of days: 6 External Urinary Device 01/27/24 1000 (Active) Placement Date/Time: 01/27/24 1000 Number of days: 2 BP 128/77 Pulse 93 Temp 99.9 ??F (37.7 ??C) Resp 25 Ht 1.93 m (6' 4 ) Wt 133 kg (293 lb 3.4 oz) SpO2 96% Wt Readings from Last 3 Encounters: 01/29/24 133 kg (293 lb 3.4 oz) 09/17/23 (!) 148.6 kg (327 lb 9.6 oz) 05/07/23 (!) 145.2 kg (320 lb) Multisystem Examination: Neck: ROM intact Respiratory: No respiratory distress. Cardiovascular: Normal heart rate, Normal rhythm. GI: Soft, No tenderness Integument: Warm, Dry Neurological Examination: The patient is Drowsy, but awakens easily. He follows simple commands. Speech is dysarthric. L Pupil is 5 mm/fixed, R pupil is 2mm/fixed. Oculocephalic movements are present. Hearing intact. Motor: No involuntary movements were observed. Facial movements are asymmetric on the left . Strength is 4/5 in LUE, 3/5 RUE and 2/5 in the L LE and 2 in the R LE. Sensory: Facial and peripheral sensation are intact. Coordination: Unable to perform finger to nose. Gait: Not tested due to patient condition. Labs Recent Labs Component Name 01/24/24 0443 07/23/20 0649 01/20/19 1134 CHOL 229* 254* 258* TRIG 179* 179* 63 HDL 32* 48 63 LDLCALC 161* 173* 179* Recent Labs Component Name 01/29/24 0259 01/28/24 0341 01/27/24 0537 SODIUM 140 139 138 POTASSIUM 4.1 4.0 3.6 CHLORIDE 100 102 102 CO2 27 26 25 BUN 15 15 12 CREATININE 0.74 0.75 0.76 GLUCOSE 135* 126* 97 CALCIUM 9.3 9.3 9.4 ALBUMIN 2.7* 2.6* 2.5* ALKPHOS 90 90 90 ALT 10 12 16 AST 14 17 23 TBIL 0.2 0.3 0.4 TPROT 8.2 7.8 7.5 EGFR >90 >90 >90 Evaluation: CT head 01/22: 1. No acute intracranial hemorrhage. 2. Involutional changes with chronic lacunar infarctions and ischemic microangiopathy. 3. Age indeterminate infarction left thalamus and less likely a sequela of trans-synaptic degeneration. MRI brain if there is concern for acute ischemia. CT head 01/23: No acute intracranial hemorrhage. Stable chronic findings. CT angio: Short segment severe, string-like stenosis of the lower basilar artery just above the vertebral confluence. Cerebral Angiogram Impression 01/23/2024: A severe stenosis in the proximal basilar artery, s/p successful balloon angioplasty. Residual stenosis about 50% in lateral view Echo: ??? Left??Ventricle: Left ventricle size is normal. Mildly to moderately increased wall thickness. Normal systolic function. EF 50-55%. Normal wall motion. Diastolic function is indeterminate. ??? Right??Ventricle: Right ventricle is not well visualized. ??? Aortic??Valve: Mild regurgitation. EKG: Results for orders placed or performed during the hospital encounter of 01/23/24 EKG 12-LEAD Result Value Ref Range Ventricular Rate 96 BPM Atrial Rate 96 BPM P-R Interval 146 ms QRS Duration ms 78 ms Q-T Interval ms 360 ms QTC Calculation (Bezet) 454 ms Calculated P [place] 79 degrees Calculated R [place] 76 degrees Calculated T [place] -77 degrees Interpretation EKG Normal sinus rhythm ST & T wave abnormality, consider inferolateral ischemia Abnormal ECG When compared with ECG of 12-OCT-2022 16:28, Premature ventricular complexes are no longer Present Non-specific change in ST segment in Anterior leads Inverted T waves have replaced nonspecific T wave abnormality in Inferior leads T wave amplitude has increased in Anterior leads Confirmed by JUSTICE PURVIS MD ([id number]) on 01/23/2024 2:35:44 PM Tele: Cardiac Rhythm: Sinus Rhythm (01/29/24 0800) LDL: Recent Labs Component Name 01/24/24 0443 07/23/20 0649 01/20/19 1134 LDLCALC 161* 173* 179* HgBA1C: Recent Labs Component Name 01/23/24 1039 09/17/23 1330 10/18/22 1045 HGBA1C 6.1* 6.5 5.9 This patient will benefit from a SGLT-2 or GLP-1, this requires close follow up with PCP or endocrine and lab monitoring. Due to this reason deferred treatment until outpatient follow up. Initial documented NIHSS Score: NIH Total: 13 (01/23/24 1048) Last Documented NIHSS Score: NIH Total: 14 (01/29/24 08) Depression Screen Score = Does not meet criteria for screening: Aphasia PHQ-2 PHQ-9 Therapy Recommendations: Discharge Discharge Equipment Recommendations: To Be Determined (01/28/24 104) OT Discharge Recommendations: Patient would benefit from intensive 3-hour multidisciplinary therapy(01/28/24 104) This recommendation is made due to ongoing intensive OT functional needs: ability to actively participate in intensive therapy 3 hours/day, 5 days a week;patient has the need for more than one skilled therapy service;motivated to participate in therapy;not at baseline due to impaired ability to complete ADL's;functional mobility is significantly below baseline;likely to return to the community atdischarge with support system;patient and/or caregiver require specialized training;patient demonstrates a significant functional decline and would benefit from skilled therapy intervention to restore function;patient has the ability to progress and demonstrate measurable gains as a result of skilled therapy (01/28/24 104) PT Discharge Recommendations: Patient would benefit from intensive 3-hour multidisciplinary therapy(01/28/24 1050) This recommendation is made due to ongoing intensive PT functional needs: patient has the need for more than one skilled therapy service;patient demonstrates a significant functional decline and would benefit from skilled therapy intervention to restore function;patient has the ability to progress and demonstrate measurable gains as a result of skilled therapy (01/28/24 1050) Recommended Transportation Method: To be Determined (01/28/24 1050) Modified [place] Score: Preadmission Modified [place] Score: 0 (01/26/24 0936) Current Modified Mervin Score: 5 (01/28/24 1045) Procedures: Basilar artery??angioplasty 01/23/2024 IMPRESSION - Acute ischemic stroke: Posterior circulation syndrome - Critical Basilar stenosis/thrombosis s/p successful angioplasty - Acute resp failure s/p intubation and mechanical ventilation - Poorly controlled DM - HTN - Alcohol use disorder - Leucocytosis: r/o infectious/stress induced/r/o Asp PNA - 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 - Statin: CK elevated, will start statin when CK lower - VTE prevention with SCDs. Hold Heparin for PEG. - Allow permissive HTN - Maintain euglycemia, SSI - Keppra 500 mg BID - Nutrition: NPO, Dobbhoff for nutrition and medication. - PT/OT and speech therapy ongoing. - PEG tomorrow, consult to GI Multidisciplinary rounds have been completed today with the following disciplines: Stroke neurology, Stroke MERCHANDISE FLOW MANAGER, and nursing. Travis Bhat, MSN, CORPORATE FINANCIAL ANALYST, MERCHANDISE FLOW MANAGER-C, SCRN, CNRN Interventional Vascular Neurology [facility] [place] ASCOM #[id number] ATTESTATION I have seen and examined the patient with the nurse practitioner. I have re- confirmed the paula elements of the history and performed an examination. I have discussed the patient's care with the nurse practitioner. ?? 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 He is lethargic yet able to wake up and follow commands. He remained able to move all limbs with weakness on the left limbs. He shows ptosis in the left eyelid and limited eye movements consistent with third nerve palsy. He also demonstrates severe neurogenic dysphagia and dysarthria. Tube nutrition ongoing. A spell suggestive of seizure activity; thus, AED started though EEG was normal. PEG is needed in this setting. He should get it while on Plavix. Given the severe pathology in the basilar artery, we can not afford stopping the plavix at this time. We may hold heparin but not the plavix. ?? Yessenia Kerr MD Interventional Vascular Neurology [facility] [place] Pager- [phone] Nurse Practitioner (ASCOM [id number]) ?? * Vernon Linda M, RD/LDN - 01/29/2024 1:14 PM CDT CLINICAL NUTRITION Pt follow-up for tube feeding. Pt on room air. Post extubation on 01/24. Downgraded this morning. Per MD ok to slowly increase TF. Osmolite infusing at 20 ml/hr. Of note on 01/23 vomited TF at 35 ml/hr. NETWORK RELATIONS CONSULTANT recommends NPO at this time. Labs reviewed. Last BM 01/27 on senna. Current diet order: NPO Current tube feeding order: Osmolite 1.2 at 20 ml/hr, water flush per MD (576 kcal, 27 g pro, 394 ml free water) Medications: MEDICATIONS FOR CURRENT ENCOUNTER: ?? SCHEDULED MEDICATIONS: ?? 0.9% NaCl injection 3 mL, Intracatheter, q8h ?? acetaminophen (Tylenol) tablet 650 mg, Enteral Tube, q4h ?? albuterol-ipratropium (Duo-Neb) nebulizer solution 3 mL, Inhalation, q6h ?? amLODIPine (Norvasc) tablet 10 mg, Enteral Tube, QDAY ?? aspirin chew tablet 81 mg, Enteral Tube, QDAY ?? atorvastatin (Lipitor) tablet 80 mg, Enteral Tube, AT BEDTIME ?? bisacodyl (Dulcolax) suppository 10 mg, Rectal, QDAY ?? clopidogrel (plaVIX) tablet 75 mg, Enteral Tube, QDAY ?? heparin injection 5,000 Units, Subcutaneous, BID ?? insulin aspart (NovoLOG) pen 0-18 Units, Subcutaneous, q6h ?? levETIRAcetam (Keppra) tablet 500 mg, Enteral Tube, BID ?? losartan (Cozaar) tablet 50 mg, Enteral Tube, AT BEDTIME ?? modafinil (Provigil) tablet 200 mg, Enteral Tube, QAM ?? senna-docusate (Senokot-S) tablet 2 tablet, Enteral Tube, BID ?? CONTINUOUS MEDICATIONS: ?? niCARdipine (Cardene) 50 mg in 0.9% NaCl IV 100 mL infusion, Intravenous, Continuous Recent Labs Component Name 01/29/24 0259 01/28/24 0341 01/27/24 0537 03/22/18 1147 01/29/18 0620 01/28/18 0655 01/27/18 0654 01/24/18 1542 01/11/18 1548 11/09/17 1521 11/19/15 0923 SODIUM 140 139 138 - - - - - - - - NA - - - - 136 136 138 - 140 - 140 POTASSIUM 4.1 4.0 3.6 - 3.9 3.3* 3.4* - 4.1 - - CHLORIDE 100 102 102 - - - - - - - - CL - - - - 97* 97* 100 - 102 - 106 CO2 27 26 25 - 26 30* 26 - 27 - 26 BUN 15 15 12 - 12 9 8 - 15 - 14 CREATININE 0.74 0.75 0.76 - 1.0 0.9 0.9 - 0.9 - 0.93 GLUCOSE 135* 126* 97 - 170* 144* 129* - 81 - - CALCIUM 9.3 9.3 9.4 - 9.1 8.7 9.1 - 9.6 - 9.2 ALBUMIN 2.7* 2.6* 2.5* - - - - - - - - ALB - - - - - - - - 3.8 - 4.1 PHOS 4.1 4.4 4.0 - 3.0 3.6 3.7 - 3.4 - - ANIONGAP 13 11 11 - 17 12 15 - 15 - - - = values in this interval not displayed. Blood Sugar Range Past 24 hours: Glucose Bedside (mg/dL) Av.2 mg/dL Min: 124 mg/dL Max: 160 mg/dL Last BM (Date): 01/28/24 Bowel Sounds (All Quadrants): Active (per nursing documentation) Plan/Recommendations: Increase Osmolite 1.2 q8hr till goal rate of 90 ml/hr with 1 protein additive. This will provide 2592 kcals, 119 g PRO, 1771 ml free water. 60 kcals and 15 g PRO from protein additive. Total : 2652 kcals, 134 g PRO Monitor per nutrition guidelines. * Gustavo Taveras RCP - 01/29/2024 8:43 AM CDT Noninvasive ventilation order has been verified will continue to assess. Orders as follow CPAP 5 cmH2O * Kel Jacome MD - 01/29/2024 8:30 AM CDT Outpatient Clerk day rounding note: Patient remains responsive and awake, moves all extremities. D/w Dr. Kerr who agrees to transfer to 7N stepdown status. At this time, the patient is appropriate for transfer from ICU. Please call with questions. Kel Jacome MD 01/29/2024 8:30 AM * Yessenia Kerr MD - 01/28/2024 3:40 PM CDT INTERVENTIONAL STROKE NEUROLOGY PROGRESS NOTE Hospital Day: 5 A 63 year old male was admitted with PMH of DM, HTN, alcohol abuse who presented on 01/23/2024 10:27AM with chief complaint of unresponsiveness. He was found down at his home by the recharger person he had scheduled to visit his home today. His last known well was not clear. I spoke with his sister who said they had not seen or spoken to him in the last 24 hrs. He was able to follow some command upon arrival to the hospital but had a hard time moving his lower limbs. Suspicion of posterior circulation stroke was entertained. MRI brain stat was quickly obtained showing multiple infarcts in the brainstem including the left midbrain and left thalamus and right periventricular region. 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 Decision to take to IVRfor exploration and potential management. He was intubated in the ER for airway protection. CTH stable. Family reports L pupil has been larger for 2+months. Extubated 01/24. 01/28/2024: Patient in bed, awake and interactive. Reported seizure activity on 01/26, started on Keppra. No further seizure since. Indy remains, working with [facility] daughter, updated on plan of care. MEDICATIONS FOR CURRENT ENCOUNTER: SCHEDULED MEDICATIONS: 0.9% NaCl injection 3 mL, Intracatheter, q8h acetaminophen (Tylenol) tablet 650 mg, Enteral Tube, q4h albuterol-ipratropium (Duo-Neb) nebulizer solution 3 mL, Inhalation, q6h amLODIPine (Norvasc) tablet 10 mg, Enteral Tube, QDAY aspirin chew tablet 81 mg, Enteral Tube, QDAY atorvastatin (Lipitor) tablet 80 mg, Enteral Tube, AT BEDTIME bisacodyl (Dulcolax) suppository 10 mg, Rectal, QDAY clopidogrel (plaVIX) tablet 75 mg, Enteral Tube, QDAY heparin injection 5,000 Units, Subcutaneous, BID insulin aspart (NovoLOG) pen 0-18 Units, Subcutaneous, q6h levETIRAcetam (Keppra) tablet 1,000 mg, Enteral Tube, BID losartan (Cozaar) tablet 50 mg, Enteral Tube, AT BEDTIME modafinil (Provigil) tablet 200 mg, Enteral Tube, QAM ??? senna-docusate (Senokot-S) tablet 2 tablet, Enteral Tube, BID CONTINUOUS MEDICATIONS: ??? niCARdipine (Cardene) 50 mg in 0.9% NaCl IV 100 mL infusion, Intravenous, Continuous PRN MEDICATIONS: Or Or 0.9% NaCl injection 1-10 mL, Intracatheter, PRN dextrose 10 % IV bolus, Intravenous, PRN dextrose 10 % IV bolus, Intravenous, PRN glucagon (Glucagen) injection 1 mg, Subcutaneous, PRN hydrALAZINE (Apresoline) injection 10 mg, Intravenous, q1h PRN ondansetron (Zofran) injection 4 mg, Intravenous, q4h PRN ??? prochlorperazine (Compazine) injection 10 mg, Intravenous, q4h PRN Peripheral IV Left Antecubital (Active) Placement Date/Time: 01/23/24 1055 Size (Gauge): 18 G Orientation: Left Location: Antecubital Site Prep: Chlorhexidine Technique: Anatomical Landmarks Insertion attempts (FOR ED ONLY): 1 Number of days: 5 Peripheral IV Left Antecubital (Active) Placement Date/Time: 01/23/24 1136 Orientation: Left Location: Antecubital Site Prep: ChlorhexidineTechnique: Anatomical Landmarks Insertion attempts (FOR ED ONLY): 1 Number of days: 5 Enteral - Nasal/Oral Naso-gastric Nostril/Nare;Right (Active) Placement Date/Time: 01/26/24 1430 Type: Naso-gastric Tube Location: Nostril/Nare;Right Name of person who removed: Nel Minor RN Number of days: 2 Puncture Site Femoral (Active) Date/Time: 01/23/24 1344 Placed by: Alexsander Orientation: Right Puncture Site Location: Femoral Puncture Type: Arterial Number of days: 5 Central Line (Non-Tunneled) Subclavian Triple (Active) Placement Date/Time: 01/23/24 2230 Placed by: Dr Montoya Central Line Checklist utilized: Yes Local Anesthetic Used?: Injectable Orientation: Left Location: Subclavian Lumens: Triple Femoral line indication: Emergency Number of days: 4 External Urinary Device 01/27/24 1000 (Active) Placement Date/Time: 01/27/24 1000 Number of days: 1 BP (!) 189/118 Pulse 95 Temp 98.3 ??F (36.8 ??C) (Oral) Resp (!) 33 Ht 1.93 m (6' 4 ) Wt 135 kg (297 lb 9.9 oz) SpO2 99% Wt Readings from Last 3 Encounters: 01/28/24 135 kg (297 lb 9.9 oz) 09/17/23 (!) 148.6 kg (327 lb 9.6 oz) 05/07/23 (!) 145.2 kg (320 lb) Multisystem Examination: Neck: ROM intact Respiratory: No respiratory distress. Cardiovascular: Normal heart rate, Normal rhythm. GI: Soft, No tenderness Integument: Warm, Dry Neurological Examination: The patient is Awake, alert, and cooperative. He follows simple commands. Speech is dysarthric. L Pupil is 5 mm/fixed, R pupil is 2mm/fixed. Oculocephalic movements are present. Hearing intact. Motor: No involuntary movements were observed. Facial movements are asymmetric on the left . Strength is 4/5 in LUE, 3/5 RUE and 3/5 in the L LE and 2-3/5 in the R LE. Sensory: Facial and peripheral sensation are intact. Coordination: Unable to perform finger to nose. Gait: Not tested due to patient condition. Labs Recent Labs Component Name 01/24/24 0443 07/23/20 0649 01/20/19 1134 CHOL 229* 254* 258* TRIG 179* 179* 63 HDL 32* 48 63 LDLCALC 161* 173* 179* Recent Labs Component Name 01/28/24 0341 01/27/24 0537 01/26/24 0413 SODIUM 139 138 140 POTASSIUM 4.0 3.6 3.6 CHLORIDE 102 102 105 CO2 26 25 27 BUN 15 12 10 CREATININE 0.75 0.76 0.74 GLUCOSE 126* 97 115* CALCIUM 9.3 9.4 8.8 ALBUMIN 2.6* 2.5* 2.4* ALKPHOS 90 90 75 ALT 12 16 10 AST 17 23 21 TBIL 0.3 0.4 0.4 TPROT 7.8 7.5 7.2 EGFR >90 >90 >90 Evaluation: CT head 01/22: 1. No acute intracranial hemorrhage. 2. Involutional changes with chronic lacunar infarctions and ischemic microangiopathy. 3. Age indeterminate infarction left thalamus and less likely a sequela of trans-synaptic degeneration. MRI brain if there is concern for acute ischemia. CT head 01/23: No acute intracranial hemorrhage. Stable chronic findings. CT angio: Short segment severe, string-like stenosis of the lower basilar artery just above the vertebral confluence. Cerebral Angiogram Impression 01/23/2024: A severe stenosis in the proximal basilar artery, s/p successful balloon angioplasty. Residual stenosis about 50% in lateral view Echo: ??? Left??Ventricle: Left ventricle size is normal. Mildly to moderately increased wall thickness. Normal systolic function. EF 50-55%. Normal wall motion. Diastolic function is indeterminate. ??? Right??Ventricle: Right ventricle is not well visualized. ??? Aortic??Valve: Mild regurgitation. EKG: Results for orders placed or performed during the hospital encounter of 01/23/24 EKG 12-LEAD Result Value Ref Range Ventricular Rate 96 BPM Atrial Rate 96 BPM P-R Interval 146 ms QRS Duration ms 78 ms Q-T Interval ms 360 ms QTC Calculation (Bezet) 454 ms Calculated P [place] 79 degrees Calculated R [place] 76 degrees Calculated T [place] -77 degrees Interpretation EKG Normal sinus rhythm ST & T wave abnormality, consider inferolateral ischemia Abnormal ECG When compared with ECG of 26-JUL-2022 16:28, Premature ventricular complexes are no longer Present Non-specific change in ST segment in Anterior leads Inverted T waves have replaced nonspecific T wave abnormality in Inferior leads T wave amplitude has increased in Anterior leads Confirmed by JUSTICE PURVIS MD ([id number]) on 01/23/2024 2:35:44 PM Tele: Cardiac Rhythm: Sinus Rhythm (01/28/24 1200) LDL: Recent Labs Component Name 01/24/24 0443 07/23/20 0649 01/20/19 1134 LDLCALC 161* 173* 179* HgBA1C: Recent Labs Component Name 01/23/24 1039 09/17/23 1330 10/18/22 1045 HGBA1C 6.1* 6.5 5.9 This patient will benefit from a SGLT-2 or GLP-1, this requires close follow up with PCP or endocrine and lab monitoring. Due to this reason deferred treatment until outpatient follow up. Initial documented NIHSS Score: NIH Total: 13 (01/23/24 1048) Last Documented NIHSS Score: NIH Total: 13 (01/28/24 0800) Depression Screen Score = Does not meet criteria for screening: Cognitive Impairment PHQ-2 PHQ-9 Therapy Recommendations: Discharge Discharge Equipment Recommendations: To Be Determined (01/28/24 104) OT Discharge Recommendations: Patient would benefit from intensive 3-hour multidisciplinary therapy(01/28/24 1045) This recommendation is made due to ongoing intensive OT functional needs: ability to actively participate in intensive therapy 3 hours/day, 5 days a week;patient has the need for more than one skilled therapy service;motivated to participate in therapy;not at baseline due to impaired ability to complete ADL's;functional mobility is significantly below baseline;likely to return to the community atdischarge with support system;patient and/or caregiver require specialized training;patient demonstrates a significant functional decline and would benefit from skilled therapy intervention to restore function;patient has the ability to progress and demonstrate measurable gains as a result of skilled therapy (01/28/24 1045) PT Discharge Recommendations: Patient would benefit from intensive 3-hour multidisciplinary therapy(01/28/24 1050) This recommendation is made due to ongoing intensive PT functional needs: patient has the need for more than one skilled therapy service;patient demonstrates a significant functional decline and would benefit from skilled therapy intervention to restore function;patient has the ability to progress and demonstrate measurable gains as a result of skilled therapy (01/28/24 1050) Recommended Transportation Method: To be Determined (01/28/24 1050) Modified [place] Score: Preadmission Modified Mervin Score: 0 (01/26/24 0936) Current Modified [place] Score: 5 (01/26/24935) Procedures: Basilar artery??angioplasty 01/23/2024 IMPRESSION - Acute ischemic stroke: Posterior circulation syndrome - Critical Basilar stenosis/thrombosis s/p successful angioplasty - Acute resp failure s/p intubation and mechanical ventilation - Poorly controlled DM - HTN - Alcohol use disorder - Leucocytosis: r/o infectious/stress induced/r/o Asp PNA - 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 - PT/OT and speech therapy ongoing. - ICU to sign off, okay to transfer to [address] [place] [address]. Multidisciplinary rounds have been completed today with the following disciplines: Stroke neurology, Stroke MERCHANDISE FLOW MANAGER, and nursing. Travis Bhat, MSN, CORPORATE FINANCIAL ANALYST, MERCHANDISE FLOW MANAGER-C, SCRN, CNRN Interventional Vascular Neurology [facility] [place] [facility] #[id number] ATTESTATION I have seen and examined the patient with the nurse practitioner. I have re- confirmed the paula elements of the history and performed an examination. I have discussed the patient's care with the nurse practitioner. 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 He is lethargic yet able to wake up and follow commands. He remained able to move all limbs with weakness on the left limbs. He shows ptosis in the left eyelid and limited eye movements consistent with third nerve palsy. He also demonstrates severe neurogenic dysphagia and dysarthria. Tube nutrition ongoing. A spell occurred yesterday suggested a seizure activity; thus, AED started though EEG was normal. I spoke with the sister at the bedside and indicated the possible need for PEG, she agreed in case he will need it. We will determine by tomorrow. Yessenia Kerr MD Interventional Vascular Neurology [facility] [place] Pager- [phone] Nurse Practitioner ([id number]) * Sloane Caballero OT - 01/28/2024 2:39 PM CDT Problem: General Goal: STG(1)-Patient will Description: OTR to assess OOB Outcome: Progressing Goal: STG-Patient will Description: Tolerate sitting EOB for approx. 5 minutes w/ SBA to prepare for ADLs Outcome: Progressing Goal: STG-Patient will Description: Complete 1-2 seated ADL tasks w/ min assist Outcome: Progressing * Macho Solis - 01/28/2024 2:15 PM CDT Physical Therapy ICU Evaluation Orders received. Chart reviewed for diagnosis and medical systems review. RN consented for PT. Explained purpose of PT and patient consented to participate in therapy. 63 y/o M pmh DM, HTN, ethoh abuse, CAD s/p CABG (2018) ICU admit 01/22 found down at home, unknown last time known well Imaging showing acute ischemic stroke - areas of infarct in basal artery - L midbrain/thalamus RECOMMENDATIONS/PLAN: continue acute PT services with progression of EOB activity and weightbearingto OOB activity as able PT Discharge Recommendations: Patient would benefit from intensive 3-hour multidisciplinary therapy This recommendation is made due to ongoing intensive PT functional needs: patient has the need for more than one skilled therapy service;patient demonstrates a significant functional decline and would benefit from skilled therapy intervention to restore function;patient has the ability to progress and demonstrate measurable gains as a result of skilled therapy Recommended Transportation Method: To be Determined AM-PAC Basic mobility score for this patient is Mobility Raw Score:: 6 Precautions: Full code, fall, PIV, Central line, NG, External cath, SBP maintain 120 to 180, SPO2 >92 SUBJECTIVE: Pt consented to therapy services. PLOF: Type of Residence: Private Residence Lives with:: Alone Home Structure: One Story;Basement Steps to Enter: ( Yes I don't know ) Bathroom : Tub/Shower Combo Equipment at Home: None Mobility: Ambulate-In Community;Ambulate-In Home ;Driving Fallen Within 6 Mos: No Prior Level of Function Mobility: Ambulate-In Community;Ambulate-In Home ;Driving Fallen Within 6 Mos: No Have Help at Home?: No help at home now Who assists you at home?: Friends/Family Oxygen at Home: No Activity at Home: Active;Driving Vision: No impairment Hearing Exceptions: No impairment Who manages medications?: self Have Help at Home?: No help at home now Activity at Home: Active;Driving Who manages medications?: self Pain Assessment: Pain Location #1 Pain Scale/Observation: Numeric (0-10) Pain Rating Score #1: 0 Sedation Level #1: 2-Slightly drowsy, easy to arouse OBJECTIVE: Cognition: Orientation Level: Oriented to Person;Disoriented to Place;Disoriented to Situation;Disoriented to Time Cognition: Follows Commands-Consistent;Processing-delayed Level of Consciousness-Adult: Drowsy;Eyes Open Spontaneously (L eye ptosis) Participation: Active Participation ROM and Strength: AROM - Right Upper Extremity: Exceptions Strength - Right Upper Extremity: Exceptions Military Equipment Specialist Strength - Right Upper Extremity: diminished machine pack assembler strength AROM - Left Upper Extremity: Within Functional Limits Strength - Left Upper Extremity: Within Functional Limits Military Equipment Specialist Strength - Left Upper Extremity: WFL AROM - Right Lower Extremity: Exceptions Strength - Right Lower Extremity: Exceptions AROM - Left Lower Extremity: Within Functional Limits Strength - Left Lower Extremity: Within Functional Limits Sensation: Antelmo LE WFL. R LE grossly weak/limited AROM with L LE WFL. Balance: Sitting - Static: Poor + Sitting - Dynamic: Poor Bed Mobility: Rolling: Total Assistance Supine to Sit: Total Assistance;X 2 Sit to Supine: Total Assistance;X 2 Transfers: Sit to Stand: Activity Does Not Occur Mobility: Distance Ambulated (ft): 0 FEET Ambulation: Level of Assistance: Activity Does Not Occur Activity Tolerance: Activity Tolerance: Requires rest breaks Vital signs: BP taken on L UE Before mobility After mobility BP 153/97 140/88 HR (bpm) 86 92 RR (breaths/min) 23 28 SpO2 (%) 98 98 ASSESSMENT: Pt tolerated session well with stable vital signs and denying dizziness, SOB, and other s/s of adverse events. Pt was soft spoken and hard to understand at times due to drowsiness but attentive with cueing. Pt required frequent stimulation and cueing to remain alert/attentive and L eye presented with severe ptosis, exlcusively used R eye. Pt appeared to have visual neglect of L side, but further assessment needed due to drowsiness and ptosis of L eye. Pt tolerant of ~15 minutes EOB sitting with PT/OT included activities of ROM, RROM/Strength testing, iniating R side weightbearing, vision/coordination assessment, and balance exercise. Pt's R side grossly affected more than L, pt showed some awareness of deficits and problem solving when asked to bring R arm to face, he used the L UE to start to assist without cueing. Even with assist of other arm he still needed OT assist to reach face, could reach face with L UE. Overall, pt presented impairments signficantly below functional mobility baseline impacting abilityto complete ADLs and was unable to tolerate OOB activity per PT assessment and R sided grossly limited. Pt put in combalizer with lateral transfer and left in sitting for ~ 2 hours before nursing andOT placed pt back in bed. Time allowed for set up room and combalizer for transfer. Pt would likely benefit from IPR due to significant functional decline with need for continued medical management and multiple therapy services to address impairments impacting function. Pt motivatedfor therapy with potential to improve further need to assess activity tolerance as pt stabilizes and progresses. Call light and phone in reach with alarm activated. All lines, monitors, IV's, equipment in place and intact pre and post visit. RN notified of patient's performance/location end of session. Education Provided: Pt educated in PT plan of care, fall precautions, and benefits of participatingin out of bed activity. Problem list: Decreased strength, decreased ROM, decreased endurance, decreased balance, impaired functional mobility, decreased coordination, impaired safety awareness, impaired cardiopulmonary function Functional limitation: Decreased independence with ambulation/transfers; decreased safety with functional mobility. Rationale for therapy: Patient will benefit from PT to address the above issues. Patient will be seen for:strengthening, functional transfers, balance, endurance, exercise. Refer to Plan of Care for PT goals. See Filed Flowsheet PT eval for further details. RECOMMENDATIONS/PLAN: Pt has experienced a significant decline from PLOF and would benefit from PT to maximize functional mobility/transfer independence and safety. PT will continue to follow during the acute stay. Progress as tolerated. If this is the last Physical Therapy visit, this serves as the discharge summary. Davon SPT Ascom [phone] * Sloane Caballero, OT - 01/28/2024 1:20 PM CDT Occupational Therapy Initial Re-Evaluation OT orders received per Stroke Protocol. Chart reviewed for diagnosis and medical systems review. Nursing consented for OT. Explained purpose of OT and patient consented to participate in therapy. RECOMMENDATIONS/PLAN: Continue skilled OT. Discharge Equipment Recommendations: To Be Determined OT Discharge Recommendations: Patient would benefit from intensive 3-hour multidisciplinary therapy This recommendation is made due to ongoing intensive OT functional needs: ability to actively participate in intensive therapy 3 hours/day, 5 days a week;patient has the need for more than one skilled therapy service;motivated to participate in therapy;not at baseline due to impaired ability to complete ADL's;functional mobility is significantly below baseline;likely to return to the community atdischarge with support system;patient and/or caregiver require specialized training;patient demonstrates a significant functional decline and would benefit from skilled therapy intervention to restore function;patient has the ability to progress and demonstrate measurable gains as a result of skilled therapy Recommended Transportation Method: Stretcher/Ambulance PPE worn by staff: gloves PPE worn by patient: socks - clean;gown - patient, clean AM-PACDaily Activity Raw Score:: 8 Precautions: Fall, Tele, O2, NG, Central Line, PIV x2, Male external purewick, SBP 120-180 SUBJECTIVE: Pt supine in bed upon OT arrival, agreeable to OT re-eval. 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 Timeline 01/22: Presented to ED after being found down. MRI with brainstem infarcts. 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 Transferred to ICU. 01/23: Sedation weaned. Following simple commands 01/24: Failing PSV 2/2 apnea, extubated 4pm 01/26: encephalopathic, concerning for seizure. Starting on levetiracetam and continuous EEG Psychosocial: Patient Behaviors: Calm;Cooperative (drowsy) Family Behaviors: Not Present Occupational Profile/PLOF: Type of Residence: Private Residence Lives with:: Alone Home Structure: One Story;Basement Steps to Enter: ( yes but i don't know ) Handrails: Indoor Ramp: No Primary Bedroom: First Floor Primary Bathroom: First Floor Bathroom : Tub/Shower Combo Equipment at Home: None Mobility: Ambulate-In Home ;Ambulate-In Community;Independent;Without Assistive Device;Driving Fallen Within 6 Mos: No Have Help at Home?: Yes, there is help at home now How often is assistance provided?: part-time Level of Help Sufficient?: No Oxygen at Home: No Activity at Home: Active;Driving Who manages medications?: Patient Vision: No impairment Hearing Exceptions: No impairment PLOF ADL: Prior to Admission Feeding: Complete [place] Prior to Admission Oral Facial Hygiene: Complete [place] Prior to Admission Bathing: Complete [place] Prior to Admission Upper Body Dressing: Complete [place] Prior to Admission Lower Body Dressing: Complete [place] Prior to Admission Toileting: Complete [place] Prior to Admission Bladder: Independent Prior to Admission Bowel: Independent Prior to Admission Shopping: Independent Prior to Admission Finances: Independent Prior to Admission Driving: Complete [place] Oxygen Therapy: O2 L/M: 3 $ O2 DEVICE: Nasal Cannula $ Pain Assessment: Pain Location #1 Pain Scale/Observation: Numeric (0-10) Pain Rating Score #1: 0 OBJECTIVE: Cognition: Orientation Level: Oriented to Person;Disoriented to Place;Disoriented to Situation;Disoriented to Time Cognition: Attention/concentration-decreased;Processing-delayed;Judgement-decreased;Safety awareness-decreased;Memory impairment-short term;Follows one step commands Attention Span: Difficulty attending to directions;Attends with cues to redirect Memory: Decreased recall of recent events;Decreased short term memory Following Commands: Follows one step commands with repetition/cues Safety Judgement: Decreased awareness of need for assistance Awareness of Errors: Assistance required to identify errors made;Assistance required to correct errors made Problem Solving: Assistance required to identify errors made;Assistance required to implement solutions Functional Level of Impairment: Functional Level of Comprehension: Minimal assistance (minimal prompting) pt expends 75% or more effort Functional Level of Expression: Moderate assistance (moderate prompting) pt expends 50-74% effort Functional Level of Social Interaction: Maximal assistance (maximum prompting) pt expends 25-49% effort Functional Level of Memory: Maximal assistance (maximum prompting) pt expends 25-49% effort Functional Level of Problem Solving: Maximal assistance (maximum prompting) pt expends 25-49% effort Vision: Tracking: Other (Comment);R eye does not track medially;R eye does not track laterally (cannot assss L eye due to ptosis) Saccades: Other (Comment) (unable to test due to ptosis) Convergence: Unable to test secondary due to decreased visual attention (unable to test due to ptosis) Visual Norman: (unable to test due to ptosis) Acuity: (unable to test due to ptosis) Perception: Inattention/Neglect: Cues to attend left visual field;Cues to attend to left side of body;Cues to maintain midline in sitting Initiation: Hand over hand to initiate tasks (R side) Motor Planning: Hand over hand to sequence tasks (R side) Perseveration: Not Present RUE Assessment: RUE Assessment AROM - Right Upper Extremity: Exceptions PROM - Right Upper Extremity: Within Functional Limits Strength - Right Upper Extremity: Exceptions Tone - Right Upper Extremity: Exceptions General RUE Tone: Hypotonic-Severe Sensation - Right Upper Extremity: Within Normal Limits Military Equipment Specialist Strength - Right Upper Extremity: 1/5 LUE Assessment: LUE Assessment AROM - Left Upper Extremity: Within Functional Limits PROM - Left Upper Extremity: Within Functional Limits Strength - Left Upper Extremity: Within Functional Limits Tone - Left Upper Extremity: Within Functional Limits Sensation - Left Upper Extremity: Within Normal Limits Military Equipment Specialist Strength - Left Upper Extremity: Fair Military Equipment Specialist Strength: RUE: Military Equipment Specialist Strength - Right Upper Extremity: 1 LUEGrip Strength - Left Upper Extremity: Fair: Tone: RUETone - Right Upper Extremity: Exceptions: LUE:Tone - Left Upper Extremity: Within Functional Limits Coordination: Rapid Alternating Movements: impaired bilaterally Loktwo-Veme-Obyydp: impaired bilaterally, dysmetria L side Serial Opposition: impaired bilaterally Functional Mobility/Transfers: Balance: Sitting - Static: Poor + Sitting - Dynamic: Poor Transfers: Rolling: Total Assistance Supine to Sit: Total Assistance;X 2 Sit to Supine: Total Assistance;X 2 Bed to Chair: Total Assistance;X 3 Type of Transfer: Lateral Transfer Mobility: Ambulation: Level of Assistance: Activity Does Not Occur Basic ADLs (Based on observation and clinical judgement): Feeding: Total Assistance (NG) Oral Facial Hygiene: Maximal Assistance (R side) Bathing: Total Assistance Upper Body Dressing: Maximal Assistance Lower Body Dressing: Total Assistance Toileting: Total Assistance (Beltran) Activity Tolerance/Oxygen Therapy: O2 L/M: 3 $ O2 DEVICE: Nasal Cannula $ Modified [place] Score Preadmission Modified [place] Score: 0 Current Modified [place] Score: 5 ASSESSMENT: Initial OT evaluation completed including ADL assessment and functional mobility/transfers in addition to strength, sensory & cognitive testing in order to establish goals for D/C. Pt tolerates session fairly well. Pt able to talk with soft voice to PT/OT, hard to understand at times due to drowsiness. Pt denies pain, dizziness, SOB, or lightheadedness when asked. VSS throughout. Pt assisted from supine<>sit with total A x2, pt able to sit EOB approx. 10 minutes with MAX A for balance. Pt able to move both LEs and LUE, minimal machine pack assembler noted in RUE however no AROM seen in shoulder, elbow, or wrist. Pt completes BLE and BUE therex from EOB, pt tolerates well. Pt assistedin WB onto R side with assist from OT/PT, pt able to maintain side sitting on R elbow / forearm forapprox. 15 seconds x3 trials, pt required max a to return to midline sitting however pt able to assist with pulling up to sit. Pt completes facial hygiene with MAX A and RUE with hand over hand assist from OT. Pt required oral suctioning x2 due to gurgly cough, RN and RT aware. Difficult to assess pt vision this date due to poor visual attention, drowsiness, and ptosis of L eye. Pt reports this is not his baseline. Pt noted to have some L visual neglect, required cues to attend to that side of body / stimuli entering room on L side. Pt returned to supine with total A x2, pt assisted from bed?combolizer with assist x3. Pt placed into seated positon with 2in between pt and straps. Pt placed in seated position, VSS. Overall, pt demos significant decline from baseline level of function where pt was indep and now pt requires physical assist for all ADLs and functional mobility. Pt limited by decreased AROM, strength, insight, safety awareness, endurance, balance, vision, and pt would benefit from continued skilled OT to maximize independence with ADLs and functional mobility. Call light and phone in reach with chair alarm activated. All lines, monitors, IV's, equipment in place and intact pre and post visit. Ny SHARMA and Ryley, notified of patient's performance/location end of session. Educated patient/family in role of OT, goals of OT, benefits of OOB activity, transfers, ADLs, UE exercises, safety Functional limitation: ADL function and transfers/mobility Problem list and comorbidities: decreased strength, decreased ROM, sensory changes/deficits, decreased endurance/activity tolerance, decreased balance, decreased coordination, apraxia, aphasia, cognitive impairment Rationale for therapy: Patient will benefit from OT to address the above issues. Patient will be seen for: ADL training, transfers, balance, exercise and endurance. Refer to Plan of Care for OT goals. Please refer to the Filed Flowsheets OT Evaluation for further details. If this is the last Occupational Therapy visit, this serves as the discharge summary. Thank you for this referral SHELLY Anton/Boris [phone] * Jacqueline Vasquez - 01/28/2024 1:03 PM CDT Speech Pathology: Pt seen this date for dysphagia f/u. Raza Vazquez is a 63 year old male with a PMH of the following: Past Medical History: Diagnosis Date ??? Anemia 01/2018 ??? Asthma ([facility]) ??? Chest congestion 08/05/2020 ??? Confusional arousals 08/05/2020 ??? Controlled type 2 diabetes mellitus without complication, without long-term current use of insulin ([facility]) 09/28/2011 ??? 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 Cough syncope 2017 ??? Daytime sleepiness 08/05/2020 ??? Essential hypertension 01/23/2018 ??? Hyperlipidemia 08/05/2020 ??? Inadequate sleep hygiene 08/05/2020 ??? Morbid obesity with BMI of 40.0-44.9, adult ([facility]) 08/05/2020 ??? Nocturia 08/05/2020 ??? Obesity (BMI 30-39.9) 04/24/2012 ??? Other chest pain 09/04/2018 ??? S/P CABG x 3 01/24/2018 ??? Snoring 08/05/2020 ??? Superficial postoperative wound infection 02/23/2018 sternum ??? Wears glasses 08/05/2020 ??? Weight gain 08/05/2020 40# past 6-8 months-covid ??? Wound of sternal region 02/23/2018 Patient was admitted for unresponsiveness. MRI brain showing multiple infarcts in the brainstem including the left midbrain and left thalamus and right periventricular region. CTA was significant forthrombosis of the basilar artery V short segment stenosis, pt taken to IVR. Intubated 01/22-01/24. Nohx of ST per chart review. NIH: Date: 01/27/2024 NIH Total: 13 S: Pt upright in bed upon arrival. Pt drowsy throughout visit but would verbalize when prompted although kept eyes closed. Pt A&Ox2. Dysphagia Oral mech exam significant for mod. oral motor incoordination. Oral care completed via LANDON suctionkit. Pt observed with trials of ice chips x2. Oral phase remarkable for disorganized bolus manipulation, anterior spillage, prolonged A-P transit, and delayed swallow. Laryngeal elevation restricted to palpation with multiple, audible swallows per bolus indicative of incoordination and pharyngeal weakness. Pt demonstrated audible upper airway congestion, wet vocal quality and immediate coughing and throat clearing with all trials. Overall, pt appears to present with suspected severe pharyngeal dysphagia and is at high risk for aspiration 2/2 acute brainstem CVA and recent intubation/extubation. Recommend STRICT NPO with consideration of short term alternative nutrition/hydration. ST to follow. Speech/Language Pt significantly drowsy which limited cognitive linguistic treatment. Pt with reduced breath support for speech so most attempts at speech were unintelligible. Pt would verbalized intermittently whenprompted but mostly single words such as yeah and no. Otherwise, no further communicative attemp ts noted. Pt kept eyes closed and follow commands adequately. ST to follow. Patient/Caregiver goals: Did not state Assessments: Dysphagia ?? Primary Diagnostic Impression - Oral: Moderate Primary Diagnostic Impression - Pharyngeal: Dysphagia;Severe (suspected) Risk For Aspiration: Severe ORELLAAN Assessment: MASA Score: 125/200 ?? Dysphagia Severity Level: Severe (less than or equal to 138) / Risk for Aspiration: Severe (lessthan or equal to 140) Risk of aspiration is reduced with the use of diet modification/compensatory strategies. Speech & Integrative Language Orientation: Oriented x 2 Auditory Comprehension: Severe impairments Verbal Expression: Severe impairment Problem Solving/Reasoning: (DNT) Memory: Severe impairment Recommendations for Dysphagia: Diet Solids Recommendation: NPO Diet Liquids Recommendation: NPO Recommended Form of Meds: NPO;Feeding Tube Risk For Aspiration: Severe Strategies Include: Oral Care Guidelines: Adequate oral hygiene is extremely important in preventing respiratory infection/pneumonia 1. Provide THOROUGH oral care AT LEAST EVERY 2 HOURS 2. Items to use: swabs, toothbrushes, tweezers, oral debridement solution, mouth wash, Yankauer suction, LANDON oral suction kit 3. All secretions (dried or moist) should be removed from all oral cavity surfaces including: ? Hard palate and velum ? Teeth/gums ? Tongue ? Lips ? Cheeks/buccal cavities ? Pharynx (using suction) 4. Once secretions have been adequately removed, oral care should be provided every two hours to ensure the pt's oral cavity is clean and that any secretions that may be aspirated are not high in bacteria content Recommendations for Integrative Language Deficits: 1. Continue acute ST 2. INTENSIVE ST at the next level of care Results discussed with: Results discussed with:: Patient;Nursing;Caregiver Follow Up: Recommendations: NPO;With Alternative Nutrition;Dysphagia Treatment;Cognitive- linguistic Assessment Follow Up: Speech therapy to follow. Please refer to Care Plan. Education provided re: results and recommendations. If this is the last Speech Therapy visit, this serves as the discharge summary. Thank you for this referral. Jacqueline Suh NETWORK RELATIONS CONSULTANT Graduate Clinician 01/28/2024 1:03 PM [phone] * Ryley Lamb RN - 01/28/2024 12:49 PM CDT Problem: Fall Risk Goal: Patient will remain free of falls Outcome: Progressing Mr. Vazquez will remain free of falls, fall precautions in place. Problem: Skin Integrity Goal: Skin integrity is maintained or improved Outcome: Progressing Patient will be turned every 2 hours to prevent skin breakdown. * Travis Dubose RD/HAFSA - 01/28/2024 10:26 AM CDT Nutrition Re-Assessment Brief Synopsis: Patient at Nutrition Risk and evaluation in progress Nutrition Plan: ?? Change TF to Osmolite 1.2 at 20 ml/hr x 16 hrs ([id number]), water flush per MD. Provides: 384 kcal, 18 g pro, 262 ml free water. ?? Follow-up CPAP plan and ability to increase TF. Patient Summary: Consult received per TF protocol. Pt continues to be followed for nutrition support. Pt extubated on 01/24. TF resumed yesterday at 20 ml/hr. Previously received limited TF amount d/t vomiting episodes on 01/23 and TF was held. Plan for pt to go on CPAP today and TF will be held again. Changing to intermittent daytime feedings for potential CPAP at night. Still no BM since admission. Bowel regimen discussed in rounds. Will keep TF at 20 ml/hr today. Monitor respiratory plan. Will need to adjust formula/rate to better meet estimated needs. Pt is at risk for acute malnutrition. Assessment: Med/Surg History and Clinical Diagnoses: Multiple brainstem infarcts, acute respiratory failure, hypotension, poorly controlled DM, alcohol use disorder; Hx: DM2, CAD, CABG 2018, anemia, HLD, obesity Diet order accuracy Current diet order: NPO Current tube feeding order: Osmolite 1.2 at 20 ml/hr, water flush per MD (576 kcal, 27 g pro, 394 ml free water) Nutrition recommendation: alter/change nutrition order Food Allergies: No known food allergies P.O.Intake for the past 48 hrs:No data recorded GI Concerns: Constipation (no BM since admission; episodes of vomiting on 01/23) Chewing/Swallowing:Other (Comment) (NPO post extubation) Pain affecting intake: No Admission weight: Weight: 136.1 kg (300 lb) (01/23/24 1055) Weight Method : Stated (01/23/24 1055) Patient Vitals for the past 336 hrs: Weight Weight Method 01/28/24 0400 135 kg (297 lb 9.9 oz) Bed scale 01/26/24 0430 133 kg (293 lb 3.4 oz) Bed scale 01/25/24 0243 131 kg (288 lb 12.8 oz) Bed scale 01/24/24 0928 (!) 142.4 kg (314 lb) -- 01/24/24 0400 (!) 142.5 kg (314 lb 2.5 oz) Bed scale 01/23/24 1700 136 kg (299 lb 13.2 oz) Bed scale 01/23/24 1055 136.1 kg (300 lb) Stated BMI: Body mass index is 36.23 kg/m??. BMI Range: Severely Obese Class 2 WT Comments: Reviewed. Net IO Since Admission: -1,355.3 mL [01/28/24 1535] Component Name 01/28/24 0341 01/27/24 0537 01/26/24 0413 SODIUM 139 138 140 NA - - - POTASSIUM 4.0 3.6 3.6 CHLORIDE 102 102 105 CL - - - CO2 26 25 27 BUN 15 12 10 CREATININE 0.75 0.76 0.74 GLUCOSE 126* 97 115* CALCIUM 9.3 9.4 8.8 ALBUMIN 2.6* 2.5* 2.4* ALB - - - PHOS 4.4 4.0 4.2 ANIONGAP 11 11 8 MEDICATIONS FOR CURRENT ENCOUNTER: ?? SCHEDULED MEDICATIONS: ?? 0.9% NaCl injection 3 mL, Intracatheter, q8h ?? acetaminophen (Tylenol) tablet 650 mg, Enteral Tube, q4h ?? albuterol-ipratropium (Duo-Neb) nebulizer solution 3 mL, Inhalation, q6h ?? amLODIPine (Norvasc) tablet 10 mg, Enteral Tube, QDAY ?? aspirin chew tablet 81 mg, Enteral Tube, QDAY ?? atorvastatin (Lipitor) tablet 80 mg, Enteral Tube, AT BEDTIME ?? bisacodyl (Dulcolax) suppository 10 mg, Rectal, QDAY ?? clopidogrel (plaVIX) tablet 75 mg, Enteral Tube, QDAY ?? heparin injection 5,000 Units, Subcutaneous, BID ?? insulin aspart (NovoLOG) pen 0-18 Units, Subcutaneous, q6h ?? levETIRAcetam (Keppra) tablet 1,000 mg, Enteral Tube, BID ?? losartan (Cozaar) tablet 50 mg, Enteral Tube, AT BEDTIME ?? modafinil (Provigil) tablet 200 mg, Enteral Tube, QAM ?? senna-docusate (Senokot-S) tablet 2 tablet, Enteral Tube, BID ?? CONTINUOUS MEDICATIONS: ?? niCARdipine (Cardene) 50 mg in 0.9% NaCl IV 100 mL infusion, Intravenous, Continuous Skin/Wound: Exceptions per nursing assessment (swollen) Estimated Energy Needs: KCAL: 8620-8607 kcal/day (25-30 kcal/kg IBW) Protein (g): 137-165 g pro/day (1.5-1.8 g/kg IBW) Fluid (ml): Other (comments) (per MD) Needs based on: Kcal/kg- (Comment) (91.8 kg IBW) Recommended Access Route: TF Education needed: Stroke Nutrition Therapy Education Provided: Prior to Discharge (if appropriate) Nutrition Care Process (1) Nutrition Diagnostic Statement: Inadequate oral intake related to:: decreased ability to consume or tolerate food and/or fluids due to illness as evidenced by:: --- (NPO) Nutrition Intervention: Enteral nutrition: Monitoring: - Nutrition support. - Weight, labs. Evaluation: Diagnostic Statement #1 Goals: Nutrition Goal: Enteral/Parenteral Nutrition prescription will be consistent with estimated nutrient needs Nutrition Goal Timeframe: Throughout stay Nutrition Goal Progress: Unable to meet goal at this time;Continue with current goal * Travis Dubose RD/LDN - 01/28/2024 10:25 AM CDT Problem: Oral Intake: Inadequate oral intake Description: related to:: decreased ability to consume or tolerate food and/or fluids due to illness Goal: Enteral/parenteral nutrition prescription will be consistent with estimated needs Description: Raza Francis Nutrition Goal: Enteral/Parenteral Nutrition prescription will be consistent with estimated nutrient needs Nutrition Goal Timeframe: Throughout stay Outcome: Not Progressing Note: Pt extubated on 01/24. TF resumed 01/26. Continue care plan. * Kel Jacome MD - 01/28/2024 7:41 AM CDT ICU Progress Note Subjective: Overnight events: Tmax 38.4 Symptoms: Patient awake, following commands, interacting with the patient for NIHSS. Subjective: Filed Vitals: 01/28/24 0630 01/28/24 0800 01/28/24 0815 01/28/24 0831 BP: 145/88 154/88 179/97 (!) 182/103 Pulse: 86 86 96 Resp: Temp: 98.3 ??F (36.8 ??C) TempSrc: Oral SpO2: 98% 97% 100% Weight: Height: Artificial airway endotracheal tube Physical Exam: GENERAL APPEARANCE: Acutely ill appearing EYE: sclera anicteric, R pupil 4mm, L pupil 6mm HEENT: NCAT, intubated NECK: Supple RESP: Clear to auscultation bilaterally. No abnormal respiratory effort or retraction noted. Breathsounds are positive bilaterally. CARDIO: Regular rate, rhythm without murmur. : beltran in place GI/AB: soft, nttp, normoactive bowel sounds SKIN: Normal to inspection. Warm, dry, supple, with no changes in moles or sores that will not heal. NEUROMUSC: following commands as before, awake, some R upper ext weakness unchanged from prior exams Output by Drain (mL) 01/26/24 0701 - 01/26/24 1900 01/26/24 1901 - 01/27/24 0700 01/27/24 0701 - 01/27/24 1900 01/27/24 190 - 01/28/24 0700 01/28/24 0701 - 01/28/24 0918 Enteral - Nasal/Oral Naso-gastric Nostril/Nare;Right 0 Peripheral IV Left Antecubital (Active) Placement Date/Time: 01/23/24 1055 Size (Gauge): 18 G Orientation: Left Location: Antecubital Site Prep: Chlorhexidine Technique: Anatomical Landmarks Insertion attempts (FOR ED ONLY): 1 Number of days: 4 Peripheral IV Left Antecubital (Active) Placement Date/Time: 01/23/24 1136 Orientation: Left Location: Antecubital Site Prep: Chlorhexidine Technique: Anatomical Landmarks Insertion attempts (FOR ED ONLY): 1 Number of days: 4 Enteral - Nasal/Oral Naso-gastric Nostril/Nare;Right (Active) Placement Date/Time: 01/26/24 1430 Type: Naso-gastric Tube Location: Nostril/Nare;Right Name of person who removed: Nel Minor RN Number of days: 1 Puncture Site Femoral (Active) Date/Time: 01/23/24 1344 Placed by: Finnepdarryl Orientation: Right Puncture Site Location: Femoral Puncture Type: Arterial Number of days: 4 Central Line (Non-Tunneled) Subclavian Triple (Active) Placement Date/Time: 01/23/24 2230 Placed by: Dr Montoya Central Line Checklist utilized: Yes Local Anesthetic Used?: Injectable Orientation: Left Location: Subclavian Lumens: Triple Femoral line indication: Emergency Number of days: 4 External Urinary Device 01/27/24 1000 (Active) Placement Date/Time: 01/27/24 1000 Number of days: 0 Laboratory Results Reviewed Radiology Reviewed Assessment: Hospital Day: 5 Raza Vazquez is a 63 yom with histdory of CAD s/p CABG, obesity, HTN, HLD, DM II who presented to the ICU after an acute ischemic stroke. Timeline 01/22: Presented to ED after being found down. MRI with brainstem infarcts. 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 Transferred to ICU. 01/23: Sedation weaned. Following simple commands 01/24: Failing PSV 2/2 apnea, extubated 4pm 01/26: encephalopathic, concerning for seizure. Starting on levetiracetam and continuous EEG Plan: Respiratory: Acute Respiratory Failure Resolved, supplemental oxygen as needed, bronchodilators per protocol, and incentive spirometry. Encouraging pulmonary toilet. Aspiration PNA - Continue empiric ceftriaxone - Sputum gram stain with GPCs, MRSA swab negative. - Await sputum and blood culture results. Cardiovascular: Permissive Hypertension - SBP goal 120-180 - off vasopressors. CAD - S/p CABG - On aspirin and clopidogrel - Holding statin 2/2 elevated CK. 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 Holding statin as above Delirium prophylaxis: - Encourage normal sleep-wake cycle: lights on during the day, frequent re- orientation, sleep hygiene, minimize sleep interruptions. - Avoid sedating medications like benzos and antipsychotics, as much as possible. - PT/OT with early mobility as appropriate ?seizure activity EEG unremarkable and levetiracetam ordered. CT head at the time of the encephalopathy unremarkable. ID: Aspiration PNA - As above Fevers, improved - Central vs infectious related - Continue scheduled acetaminophen - antibiotics and infectious treatment as above Renal: - Strict Is and Os GI/Diet: Nutrition - TFs GI ppx - Lansoprazole Endo: DM II - High dose SSI Q 4 Heme: DVT ppx - SQ heparin Prognosis: Guarded Code Status: Full Code I personally spent 45 minutes providing critical care services, time was exclusive to this patient and dose not include time spent on teaching or in procedures. Kel Jacome MD 01/28/24 9:18 AM Critical Care Medicine * Rachell Ortega RN - 01/28/2024 5:37 AM CDT Problem: Fall Risk Goal: Patient will remain free of falls Outcome: Progressing Problem: Skin Integrity Goal: Skin integrity is maintained or improved Outcome: Progressing Problem: Neurological Deficit Goal: Neurological status is stable or improving Outcome: Progressing * Juliet Huertas RCP - 01/28/2024 4:46 AM CDT Raza continues to receive scheduled [id number] treatments and bronchial hygiene using the Volara device. Lungs sound are diminished this shift. Will continue to monitor and wean as tolerable. Patient required NT suctioning x1 this shift. * Sloane Caballero OT - 01/27/2024 3:42 PM CDT Therapy orders acknowledged. Chart reviewed. Attempted to see pt however pt working with [facility] [employer]. Will continue to follow and see when able. SHELLY Anton/Boris [phone] * Joanna Causey SLP - 01/27/2024 3:35 PM CDT Speech Pathology: Pt seen for follow up 2/2 to stroke protocol Raza Vazquez is a 63 year old male with a PMH of the following: Past Medical History: Diagnosis Date ??? Anemia 01/2018 ??? Asthma ([facility]) ??? Chest congestion 08/05/2020 ??? Confusional arousals 08/05/2020 ??? Controlled type 2 diabetes mellitus without complication, without long-term current use of insulin ([facility]) 09/28/2011 ??? 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 Cough syncope 2017 ??? Daytime sleepiness 08/05/2020 ??? Essential hypertension 01/23/2018 ??? Hyperlipidemia 08/05/2020 ??? Inadequate sleep hygiene 08/05/2020 ??? Morbid obesity with BMI of 40.0-44.9, adult ([facility]) 08/05/2020 ??? Nocturia 08/05/2020 ??? Obesity (BMI 30-39.9) 04/24/2012 ??? Other chest pain 09/04/2018 ??? S/P CABG x 3 01/24/2018 ??? Snoring 08/05/2020 ??? Superficial postoperative wound infection 02/23/2018 sternum ??? Wears glasses 08/05/2020 ??? Weight gain 08/05/2020 40# past 6-8 months-covid ??? Wound of sternal region 02/23/2018 Patient was admitted for unresponsiveness. MRI brain showing multiple infarcts in the brainstem including the left midbrain and left thalamus and right periventricular region. CTA was significant forthrombosis of the basilar artery V short segment stenosis, pt taken to IVR. Intubated 01/22-01/24. Nohx of ST per chart review. NIH: Date: 01/27/2024 NIH Total: 16 Subjective: Pt upright in bed upon arrival with family at bedside. Agreeable to ST. RN reports increased drowsiness this date with repeat head CT completed and EEG. Pt very drowsy upon arrival but would verbalize when prompted although kept eyes closed. Dysphagia Oral care completed via SiTune suction kit. Pt observed with trials of ice chips x2. Oral phase remarkable for disorganized bolus manipulation. Laryngeal elevation restricted to palpation with multiple, audible swallows per bolus indicative of incoordination and pharyngeal weakness. Pt demonstrated audible upper airway congestion, wet vocal quality and immediate coughing with all trials. Attempted suction although pt kept lips pursed tightly together refusing suctioning. Overall, pt appears to present with suspected severe pharyngeal dysphagia and is at high risk for aspiration 2/2 acute brainstem CVA and recent intubation/extubation. Recommend STRICT NPO with consideration of short term alternative nutrition/hydration. ST to follow. Speech/Language Pt significantly drowsy which limited cognitive linguistic treatment. Pt would verbalized intermittently when prompted but mostly single words such as yeah and no. Otherwise, no further communicative attempts noted. Pt kept eyes closed and did not follow commands. ST to follow. Patient/Caregiver goals: Did not state Assessments: Dysphagia ?? Primary Diagnostic Impression - Oral: Moderate Primary Diagnostic Impression - Pharyngeal: Dysphagia;Severe (suspected) Risk For Aspiration: Severe ORELLANA Assessment: MASA Score: 125 ?? Dysphagia Severity Level: Severe (less than or equal to 138) / Risk for Aspiration: Severe (lessthan or equal to 140) Risk of aspiration is reduced with the use of diet modification/compensatory strategies. Speech & Integrative Language Orientation: Oriented x 2 Auditory Comprehension: Severe impairments Verbal Expression: Severe impairment Problem Solving/Reasoning: (DNT) Memory: Severe impairment Recommendations for Dysphagia: Diet Solids Recommendation: NPO Diet Liquids Recommendation: NPO Recommended Form of Meds: NPO;Feeding Tube Risk For Aspiration: Severe Strategies Include: Oral Care Guidelines: Adequate oral hygiene is extremely important in preventing respiratory infection/pneumonia 1. Provide THOROUGH oral care AT LEAST EVERY 2 HOURS 2. Items to use: swabs, toothbrushes, tweezers, oral debridement solution, mouth wash, Yankauer suction, LANDON oral suction kit 3. All secretions (dried or moist) should be removed from all oral cavity surfaces including: ? Hard palate and velum ? Teeth/gums ? Tongue ? Lips ? Cheeks/buccal cavities ? Pharynx (using suction) 4. Once secretions have been adequately removed, oral care should be provided every two hours to ensure the pt's oral cavity is clean and that any secretions that may be aspirated are not high in bacteria content Recommendations for Integrative Language Deficits: 1. Continue acute ST INTENSIVE ST at the next level of care Results discussed with: Results discussed with:: Patient;Nursing;Caregiver Follow Up: Recommendations: NPO;With Alternative Nutrition;Dysphagia Treatment;Cognitive- linguistic Assessment Follow Up: Speech therapy to follow. Please refer to Care Plan. PPE: PPE worn by staff: gloves PPE worn by patient: gown - patient, clean If this is the last Speech Therapy visit, this serves as the discharge summary. Thank you for this referral. Joanna Berg MS [facility] 01/27/2024 4:02 PM [phone] * Ny Altamirano RN - 01/27/2024 3:33 PM CDT Problem: Tobacco Use Goal: Inpatient tobacco-use cessation counseling participation Outcome: Progressing Problem: Fall Risk Goal: Patient will remain free of falls Outcome: Progressing RAZA VAZQUEZ will have no falls this shift effective by frequent rounding and bed alarm when clinically relevant. Problem: Skin Integrity Goal: Skin integrity is maintained or improved Outcome: Progressing RAZA VAZQUEZ will have no worsening or new skin breakdown this shift effective by turning. Turing necessity will be assessed due to patients functional status and Evan score. * Sejal Bautista RCP - 01/27/2024 3:00 PM CDT ABG done at 12:33 was a mixed sample * Kel Jacome MD - 01/27/2024 12:40 PM CDT ICU Progress Note Subjective: Overnight events: Tmax 38.4 Symptoms: Patient more encephalopathic 01/26, stat CT head unremarkable. ABG does not show hypercapnia or acidosis. Patient now awake and alert. Subjective: Filed Vitals: 01/27/24 1200 01/27/24 1230 01/27/24 1231 01/27/24 1245 BP: 153/94 (!) 180/98 (!) 180/98 (!) 178/100 Pulse: 79 83 84 79 Resp: 26 15 16 22 Temp: 97.9 ??F (36.6 ??C) TempSrc: SpO2: 98% 99% 96% 98% Weight: Height: Artificial airway endotracheal tube Physical Exam: GENERAL APPEARANCE: Acutely ill appearing EYE: sclera anicteric, R pupil 4mm, L pupil 6mm HEENT: NCAT, intubated NECK: Supple RESP: Clear to auscultation bilaterally. No abnormal respiratory effort or retraction noted. Breathsounds are positive bilaterally. CARDIO: Regular rate, rhythm without murmur. : beltran in place GI/AB: soft, nttp, normoactive bowel sounds SKIN: Normal to inspection. Warm, dry, supple, with no changes in moles or sores that will not heal. NEUROMUSC: briefly minimally responsive, now following commands as before, awake Output by Drain (mL) 01/25/24 0701 - 01/25/24 1900 01/25/24 190 - 01/26/24 0700 01/26/24 0701 - 01/26/24 1900 01/26/24 190 - 01/27/24 0700 01/27/24 0701 - 01/27/24 1259 Requested LDAs do not have output data documented. Peripheral IV Left Antecubital (Active) Placement Date/Time: 01/23/24 1055 Size (Gauge): 18 G Orientation: Left Location: Antecubital Site Prep: Chlorhexidine Technique: Anatomical Landmarks Insertion attempts (FOR ED ONLY): 1 Number of days: 4 Peripheral IV Left Antecubital (Active) Placement Date/Time: 01/23/24 1136 Orientation: Left Location: Antecubital Site Prep: ChlorhexidineTechnique: Anatomical Landmarks Insertion attempts (FOR ED ONLY): 1 Number of days: 4 Enteral - Nasal/Oral Naso-gastric Nostril/Nare;Right (Active) Placement Date/Time: 01/26/24 1430 Type: Naso-gastric Tube Location: Nostril/Nare;Right Name of person who removed: Nel Minor RN Number of days: 0 Puncture Site Femoral (Active) Date/Time: 01/23/24 1344 Placed by: Alexsander Orientation: Right Puncture Site Location: Femoral Puncture Type: Arterial Number of days: 3 Central Line (Non-Tunneled) Subclavian Triple (Active) Placement Date/Time: 01/23/24 2230 Placed by: Dr Montoya Central Line Checklist utilized: Yes Local Anesthetic Used?: Injectable Orientation: Left Location: Subclavian Lumens: Triple Femoral line indication: Emergency Number of days: 3 Laboratory Results Reviewed Radiology Reviewed Assessment: Hospital Day: 4 Raza Vazquez is a 63 yom with histdory of CAD s/p CABG, obesity, HTN, HLD, DM II who presented to the ICU after an acute ischemic stroke. Timeline 01/22: Presented to ED after being found down. MRI with brainstem infarcts. 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 Transferred to ICU. 01/23: Sedation weaned. Following simple commands 01/24: Failing PSV 2/2 apnea, extubated 4pm 01/26: encephalopathic, concerning for seizure. Starting on levetiracetam and continuous EEG Plan: Respiratory: Acute Respiratory Failure Resolved, supplemental oxygen as needed, bronchodilators per protocol, and incentive spirometry. Encouraging pulmonary toilet. Aspiration PNA - Continue empiric ceftriaxone - Sputum gram stain with GPCs, MRSA swab negative. - Await sputum and blood culture results. Cardiovascular: Permissive Hypertension - SBP goal 120-180 - off vasopressors. CAD - S/p CABG - On aspirin and plavix. - Holding statin 2/2 elevated CK. 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 Holding statin as above Delirium prophylaxis: - Encourage normal sleep-wake cycle: lights on during the day, frequent re- orientation, sleep hygiene, minimize sleep interruptions. - Avoid sedating medications like benzos and antipsychotics, as much as possible. - PT/OT with early mobility as appropriate ?seizure activity EEG and levetiracetam ordered. CT head at the time of the encephalopathy unremarkable. ID: Aspiration PNA - As above Fevers, improved - Central vs infectious related - Continue scheduled acetaminophen - antibiotics and infectious treatment as above Renal: - Strict Is and Os GI/Diet: Nutrition - TFs GI ppx - Lansoprazole Endo: DM II - High dose SSI Q 4 Heme: DVT ppx - SQ heparin Prognosis: Guarded Code Status: Full Code I personally spent 45 minutes providing critical care services, time was exclusive to this patient and dose not include time spent on teaching or in procedures. Kel Jacome MD 01/27/24 12:59 PM Critical Care Medicine * Sherie Beltre MD - 01/27/2024 11:53 AM CDT INTERVENTIONAL STROKE NEUROLOGY PROGRESS NOTE Hospital Day: 4 A 63 year old male was admitted with PMH of DM, HTN, alcohol abuse who presented on 01/23/2024 10:27AM with chief complaint of unresponsiveness. He was found down at his home by the recharger person he had scheduled to visit his home today. His last known well was not clear. I spoke with his sister who said they had not seen or spoken to him in the last 24 hrs. He was able to follow some command upon arrival to the hospital but had a hard time moving his lower limbs. Suspicion of posterior circulation stroke was entertained. MRi brain stat was quickly obtained showing multiple infarcts in the brainstem including the left midbrain and left thalamus and right periventricular region. 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 Decision to take to IVRfor exploration and potential management. He was intubated in the ER for airway protection. CTH stable. Family reports L pupil has been larger for 2+months. Extubated 01/24. 01/27/2024: Patient seen laying in bed, extubated and on NC, tolerating at this time. Drowsy, able to follow commands with repeated stimulation. Starting modafinil and CTH to be done. Dobbhoff in place. at the bedside, updated and appreciative. All questions answered. MEDICATIONS FOR CURRENT ENCOUNTER: SCHEDULED MEDICATIONS: 0.9% NaCl injection 3 mL, Intracatheter, q8h acetaminophen (Tylenol) tablet 650 mg, Enteral Tube, q4h albuterol-ipratropium (Duo-Neb) nebulizer solution 3 mL, Inhalation, q6h amLODIPine (Norvasc) tablet 10 mg, Enteral Tube, QDAY aspirin chew tablet 81 mg, Enteral Tube, QDAY cefTRIAXone (Rocephin) 2,000 mg in 0.9% NaCl IV 50 mL IVPB, Intravenous, q24h clopidogrel (plaVIX) tablet 75 mg, Enteral Tube, QDAY heparin injection 5,000 Units, Subcutaneous, BID insulin aspart (NovoLOG) pen 0-18 Units, Subcutaneous, q4h losartan (Cozaar) tablet 50 mg, Enteral Tube, AT BEDTIME magnesium sulfate 4 g in 100 mL bolus, Intravenous, Once modafinil (Provigil) tablet 200 mg, Enteral Tube, QAM senna-docusate (Senokot-S) tablet 2 tablet, Enteral Tube, BID ??? [COMPLETED] potassium chloride (Klor-Con) packet 40 mEq, Enteral Tube, Once CONTINUOUS MEDICATIONS: ??? niCARdipine (Cardene) 50 mg in 0.9% NaCl IV 100 mL infusion, Intravenous, Continuous PRN MEDICATIONS: Or Or 0.9% NaCl injection 1-10 mL, Intracatheter, PRN dextrose 10 % IV bolus, Intravenous, PRN dextrose 10 % IV bolus, Intravenous, PRN glucagon (Glucagen) injection 1 mg, Subcutaneous, PRN hydrALAZINE (Apresoline) injection 10 mg, Intravenous, q1h PRN ondansetron (Zofran) injection 4 mg, Intravenous, q4h PRN ??? prochlorperazine (Compazine) injection 10 mg, Intravenous, q4h PRN Peripheral IV Left Antecubital (Active) Placement Date/Time: 01/23/24 1055 Size (Gauge): 18 G Orientation: Left Location: Antecubital Site Prep: Chlorhexidine Technique: Anatomical Landmarks Insertion attempts (FOR ED ONLY): 1 Number of days: 4 Peripheral IV Left Antecubital (Active) Placement Date/Time: 01/23/24 1136 Orientation: Left Location: Antecubital Site Prep: ChlorhexidineTechnique: Anatomical Landmarks Insertion attempts (FOR ED ONLY): 1 Number of days: 4 Enteral - Nasal/Oral Naso-gastric Nostril/Nare;Right (Active) Placement Date/Time: 01/26/24 1430 Type: Naso-gastric Tube Location: Nostril/Nare;Right Name of person who removed: Nel Minor RN Number of days: 0 Puncture Site Femoral (Active) Date/Time: 01/23/24 1344 Placed by: Alexsander Orientation: Right Puncture Site Location: Femoral Puncture Type: Arterial Number of days: 3 Central Line (Non-Tunneled) Subclavian Triple (Active) Placement Date/Time: 01/23/24 2230 Placed by: Dr Montoya Central Line Checklist utilized: Yes Local Anesthetic Used?: Injectable Orientation: Left Location: Subclavian Lumens: Triple Femoral line indication: Emergency Number of days: 3 BP 140/87 Pulse 75 Temp 97.9 ??F (36.6 ??C) (Axillary) Resp 16 Ht 1.93 m (6' 4 ) Wt 133 kg (293 lb 3.4 oz) SpO2 97% Wt Readings from Last 3 Encounters: 01/26/24 133 kg (293 lb 3.4 oz) 09/17/23 (!) 148.6 kg (327 lb 9.6 oz) 05/07/23 (!) 145.2 kg (320 lb) Multisystem Examination: Neck: ROM intact Respiratory: No respiratory distress. Cardiovascular: Normal heart rate, Normal rhythm. GI: Soft, No tenderness Integument: Warm, Dry Neurological Examination: The patient is Lethargic and responds to verbal stimuli. He follows simple commands. Speech is mumbles. L Pupil is 5 mm/fixed, R pupil is 2mm/fixed. Oculocephalic movements are present. Hearing intact. Positive gag with oral suctioning and positive cough with suction. Motor: No involuntary movements were observed. Facial movements are asymmetric on the left . Strength is 4/5 in both UE, and 3/5 in the L LE and 2-3/5 in the R LE. Sensory: Facial and peripheral sensation are intact. Coordination: Unable to perform finger to nose. Gait: Not tested due to patient condition. Labs Recent Labs Component Name 01/24/24 0443 07/23/20 0649 01/20/19 1134 CHOL 229* 254* 258* TRIG 179* 179* 63 HDL 32* 48 63 LDLCALC 161* 173* 179* Recent Labs Component Name 01/27/24 0537 01/26/24 0413 01/25/24 0304 SODIUM 138 140 141 POTASSIUM 3.6 3.6 3.2* CHLORIDE 102 105 102 CO2 25 27 26 BUN 12 10 12 CREATININE 0.76 0.74 0.78 GLUCOSE 97 115* 181* CALCIUM 9.4 8.8 8.6 ALBUMIN 2.5* 2.4* 2.5* ALKPHOS 90 75 63 ALT 16 10 <6 AST 23 21 13 TBIL 0.4 0.4 0.4 TPROT 7.5 7.2 7.3 EGFR >90 >90 >90 Evaluation: CT head 01/22: 1. No acute intracranial hemorrhage. 2. Involutional changes with chronic lacunar infarctions and ischemic microangiopathy. 3. Age indeterminate infarction left thalamus and less likely a sequela of trans-synaptic degeneration. MRI brain if there is concern for acute ischemia. CT head 01/23: No acute intracranial hemorrhage. Stable chronic findings. CT angio: Short segment severe, string-like stenosis of the lower basilar artery just above the vertebral confluence. Cerebral Angiogram Impression 01/23/2024: A severe stenosis in the proximal basilar artery, s/p successful balloon angioplasty. Residual stenosis about 50% in lateral view Echo: ??? Left??Ventricle: Left ventricle size is normal. Mildly to moderately increased wall thickness. Normal systolic function. EF 50-55%. Normal wall motion. Diastolic function is indeterminate. ??? Right??Ventricle: Right ventricle is not well visualized. ??? Aortic??Valve: Mild regurgitation. EKG: Results for orders placed or performed during the hospital encounter of 01/23/24 EKG 12-LEAD Result Value Ref Range Ventricular Rate 96 BPM Atrial Rate 96 BPM P-R Interval 146 ms QRS Duration ms 78 ms Q-T Interval ms 360 ms QTC Calculation (Bezet) 454 ms Calculated P [place] 79 degrees Calculated R [place] 76 degrees Calculated T [place] -77 degrees Interpretation EKG Normal sinus rhythm ST & T wave abnormality, consider inferolateral ischemia Abnormal ECG When compared with ECG of 26-JUL-2022 16:28, Premature ventricular complexes are no longer Present Non-specific change in ST segment in Anterior leads Inverted T waves have replaced nonspecific T wave abnormality in Inferior leads T wave amplitude has increased in Anterior leads Confirmed by JUSTICE PURVIS MD ([id number]) on 01/23/2024 2:35:44 PM Tele: Cardiac Rhythm: Sinus Rhythm (01/27/24 0800) LDL: Recent Labs Component Name 01/24/24 0443 07/23/20 0649 01/20/19 1134 LDLCALC 161* 173* 179* HgBA1C: Recent Labs Component Name 01/23/24 1039 09/17/23 1330 10/18/22 1045 HGBA1C 6.1* 6.5 5.9 This patient will benefit from a SGLT-2 or GLP-1, this requires close follow up with PCP or endocrine and lab monitoring. Due to this reason deferred treatment until outpatient follow up. Initial documented NIHSS Score: NIH Total: 13 (01/23/24 1048) Last Documented NIHSS Score: NIH Total: 16 (01/27/24 0800) Depression Screen Score = Does not meet criteria for screening: Cognitive Impairment PHQ-2 PHQ-9 Therapy Recommendations: Discharge OT Discharge Recommendations: Patient would benefit from intensive 3-hour multidisciplinary therapy(01/26/24935) This recommendation is made due to ongoing intensive OT functional needs: ability to actively participate in intensive therapy 3 hours/day, 5 days a week;patient has the need for more than one skilled therapy service;motivated to participate in therapy;not at baseline due to impaired ability to complete ADL's;functional mobility is significantly below baseline;likely to return to the community atdischarge with support system;patient and/or caregiver require specialized training;patient demonstrates a significant functional decline and would benefit from skilled therapy intervention to restore function;patient has the ability to progress and demonstrate measurable gains as a result of skilled therapy (01/26/24935) Modified [place] Score: Preadmission Modified [place] Score: 0 (01/26/24935) Current Modified [place] Score: 5 (01/26/24935) Procedures: Basilar artery??angioplasty 01/23/2024 IMPRESSION - Acute ischemic stroke: Posterior circulation syndrome - Critical Basilar stenosis/thrombosis s/p successful angioplasty - Acute resp failure s/p intubation and mechanical ventilation - Poorly controlled DM - HTN - Alcohol use disorder - Leucocytosis: r/o infectious/stress induced/r/o Asp PNA - 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 - ICU for medical management - Continue for Q2 neuro checks - CTH today and start Modafinil Multidisciplinary rounds have been completed today with the following disciplines: Stroke neurology, Stroke MERCHANDISE FLOW MANAGER, Pharmacist, referral management liaison, and nursing. Pricila Harrison, MSN, [employer]ATE [employer]CIAL ANALYST, AGNP-BC Interventional Vascular Neurology [facility] [place] [facility] #[id number] ATTESTATION I have seen and examined the patient with the nurse practitioner. I have re- confirmed the paula elements of the history and performed an examination. I have discussed the patient's care with the nurse practitioner. Pt was sleepier today and difficult to arouse. He was still moving the same limbs and only manages to open eyes after so much stimulation. Stat CT head was obtained but did not show any new concerning findings. After a while he perked up and was back to usual neuorological status. Suspicion for possible seizure led to starting of keppra and EEG ordered. Will continue to monitor in the ICU. 01/27/2024 Sherie Beltre MD Interventional Vascular Neurology [facility] [place] * Miguel Angel Cowart RN - 01/27/2024 7:30 AM CDT Pt bp elevated overnight. Dr Zamorano notified. Started on Cardene gtt. NIH 14. * Saundra Berger SLP - 01/26/2024 2:31 PM CDT Speech Language Pathologist Stroke Protocol Evaluation Speech Pathology: Order received and chart reviewed. NETWORK RELATIONS CONSULTANT Evaluation completed including clinical swallow evaluation, speech/language/cognition evaluations. Please refer to doc flowsheet for full results. Raza Vazquez is a 63 year old male, admitted for unresponsiveness. MRI brain showing multiple infarcts in the brainstem including the left midbrain and left thalamus and right periventricular region. CTA was significant for thrombosis of the basilar artery V short segment stenosis, pt taken to IVR. Intubated 01/22-01/24. No hx of ST per chart review. Past medical history includes: Past Medical History: Diagnosis Date ??? Anemia 01/2018 ??? Asthma (HCC) ??? Chest congestion 08/05/2020 ??? Confusional arousals 08/05/2020 ??? Controlled type 2 diabetes mellitus without complication, without long-term current use of insulin ([facility]) 09/28/2011 ??? 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 Cough syncope 2017 ??? Daytime sleepiness 08/05/2020 ??? Essential hypertension 01/23/2018 ??? Hyperlipidemia 08/05/2020 ??? Inadequate sleep hygiene 08/05/2020 ??? Morbid obesity with BMI of 40.0-44.9, adult (HCC) 08/05/2020 ??? Nocturia 08/05/2020 ??? Obesity (BMI 30-39.9) 04/24/2012 ??? Other chest pain 09/04/2018 ??? S/P CABG x 3 01/24/2018 ??? Snoring 08/05/2020 ??? Superficial postoperative wound infection 02/23/2018 sternum ??? Wears glasses 08/05/2020 ??? Weight gain 08/05/2020 40# past 6-8 months-covid ??? Wound of sternal region 02/23/2018 NIH: Date: 01/26/2024 [facility] Total: 12 Patient/Caregiver goals: Did not state S: Pt resting in bed, drowsy. Pt on 3L O2 via NC. Sister and daughter at the bedside. HOB elevated for PO. Dysphagia Oral [facility] exam revealed L facial asymmetry, lingual weakness and restricted ROM, hoarse vocal quality and weak cough. Noted L eye remained shut. Oral care provided. Pt presented ice chips and thin liquids via tsp. Oral phase significant for disorganized bolus manipulation. Laryngeal elevation restricted to palpation with multiple, audible swallows per bolus indicative of incoordination and pharyngeal weakness. Pt demonstrated audible upper airway congestion following all trials and intermittentcoughing. Overall, pt appears to present with suspected severe pharyngeal dysphagia and is at high risk for aspiration 2/2 acute brainstem CVA and recent intubation/exubation. Recommend STRICT NPO with consideration of short term alternative nutrition/hydration. ST to follow. Speech/Language Orientation: A&Ox2 Receptive Language One-step Commands: 04/20 Yes/No Reliability: 1/4 simple;2 /3 complex Expressive Language: Automatic Speech: 1/2 Repetition: DNT/5 Single Word Naming: DNT/4 Divergent Naming: DNT (~15 typical) Conversation: Severely impaired Integrative Language Skills Problem Solving and Reasoning: DNT Functional Memory: Impaired Assessments: Dysphagia ?? Primary Diagnostic Impression - Oral: Moderate ?? Primary Diagnostic Impression - Pharyngeal: Dysphagia;Severe (suspected) ?? Risk For Aspiration: Severe ORELLANA Assessment: ?? MASA Score: 125 ?? Dysphagia Severity Level: Severe (less than or equal to 138) / Risk for Aspiration: Severe (lessthan or equal to 140) Risk of aspiration is reduced with the use of diet modification/compensatory strategies. Speech & Integrative Language Orientation: Oriented x 2 Auditory Comprehension: Severe impairments Verbal Expression: Severe impairment Problem Solving/Reasoning: (DNT) Memory: Severe impairment Recommendations for Dysphagia: 1. Diet Solids Recommendation: NPO 2. Diet Liquids Recommendation: NPO 3. Recommended Form of Meds: NPO;Feeding Tube Risk For Aspiration: Severe Strategies Include: ??? Frequent oral care ??? STRICT NPO Recommendations for Integrative Language Deficits: 1. Continue acute ST 2. INTENSIVE ST at the next level of care Results discussed with: Results discussed with:: Patient;Nursing;Caregiver Follow Up: Recommendations: NPO;With Alternative Nutrition;Dysphagia Treatment;Cognitive- linguistic Assessment Follow Up: Speech therapy to follow. Please refer to Care Plan. PPE: PPE worn by staff: gloves PPE worn by patient: gown - patient, clean If this is the last Speech Therapy visit, this serves as the discharge summary. Thank you for this referral. Saundra BOWLES, [facility]-NETWORK RELATIONS CONSULTANT [phone] 01/26/2024 2:31 PM * Kel Jacome MD - 01/26/2024 1:33 PM CDT ICU Progress Note Subjective: Overnight events: Tmax 38.4 Symptoms: Patient unable to communicate symptoms, able to follow commands. Subjective: Filed Vitals: 01/26/24 0900 01/26/24 1000 01/26/24 1100 01/26/24 1200 BP: 152/96 (!) 176/112 (!) 172/106 (!) 197/111 Pulse: 96 94 82 76 Resp: Temp: 98.5 ??F (36.9 ??C) TempSrc: Axillary SpO2: 98% 99% 96% 96% Weight: Height: Artificial airway endotracheal tube Physical Exam: GENERAL APPEARANCE: Acutely ill appearing EYE: sclera anicteric HEENT: NCAT, intubated NECK: Supple RESP: Clear to auscultation bilaterally. No abnormal respiratory effort or retraction noted. Breathsounds are positive bilaterally. CARDIO: Regular rate, rhythm without murmur. : beltran in place GI/AB: soft, nttp, normoactive bowel sounds SKIN: Normal to inspection. Warm, dry, supple, with no changes in moles or sores that will not heal. NEUROMUSC: follows simple commands, L>R upper extremities strength and coordination Output by Drain (mL) 01/24/24 0701 - 01/24/24 1900 01/24/24 190 - 01/25/24 0700 01/25/24 0701 - 01/25/24 1900 01/25/24 190 - 01/26/24 0700 01/26/24 0701 - 01/26/24 1339 Patient has no LDAs of requested type attached. Peripheral IV Left Antecubital (Active) Placement Date/Time: 01/23/24 1055 Size (Gauge): 18 G Orientation: Left Location: Antecubital Site Prep: Chlorhexidine Technique: Anatomical Landmarks Insertion attempts (FOR ED ONLY): 1 Number of days: 3 Peripheral IV Left Antecubital (Active) Placement Date/Time: 01/23/24 1136 Orientation: Left Location: Antecubital Site Prep: ChlorhexidineTechnique: Anatomical Landmarks Insertion attempts (FOR ED ONLY): 1 Number of days: 3 Puncture Site Femoral (Active) Date/Time: 01/23/24 1344 Placed by: Alexsander Orientation: Right Puncture Site Location: Femoral Puncture Type: Arterial Number of days: 2 Central Line (Non-Tunneled) Subclavian Triple (Active) Placement Date/Time: 01/23/24 2230 Placed by: Dr Montoya Central Line Checklist utilized: Yes Local Anesthetic Used?: Injectable Orientation: Left Location: Subclavian Lumens: Triple Femoral line indication: Emergency Number of days: 2 Indwelling Transurethral Urinary Catheter (Active) Placement Date/Time: 01/23/24 1137 Placed by: ZACHARY Gunter Size (FR): 18 Urinary Catheter Type: Double-lumen / 2-Way;Temperature probe Catheter Balloon Size: 10 mL Number of attempts: 1 Number of days: 3 Laboratory Results Reviewed Radiology Reviewed Assessment: Hospital Day: 3 Raza Vazquez is a 63 yom with histdory of CAD s/p CABG, obesity, HTN, HLD, DM II who presented to the ICU after an acute ischemic stroke. Timeline 01/22: Presented to ED after being found down. MRI with brainstem infarcts. 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 Transferred to ICU. 01/23: Sedation weaned. Following simple commands 01/24: Failing PSV 2/2 apnea, extubated 4pm Plan: Respiratory: Acute Respiratory Failure Resolved, supplemental oxygen as needed, bronchodilators per protocol, and incentive spirometry. Encouraging pulmonary toilet. Aspiration PNA - Continue empiric ceftriaxone - Sputum gram stain with GPCs, MRSA swab negative. - Await sputum and blood culture results. Cardiovascular: Permissive Hypertension - SBP goal 120-180 - off vasopressors. CAD - S/p CABG - On aspirin and plavix. - Holding statin 2/2 elevated CK. 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 Holding statin as above Delirium prophylaxis: - Encourage normal sleep-wake cycle: lights on during the day, frequent re- orientation, sleep hygiene, minimize sleep interruptions. - Avoid sedating medications like benzos and antipsychotics, as much as possible. - PT/OT with early mobility as appropriate ID: Aspiration PNA - As above Fevers, improved - Central vs infectious related - Continue scheduled acetaminophen - antibiotics and infectious treatment as above Renal: - Strict Is and Os GI/Diet: Nutrition - TFs GI ppx - Lansoprazole Endo: DM II - High dose SSI Q 4 Heme: DVT ppx - SQ heparin Prognosis: Guarded Code Status: Full Code I personally spent 45 minutes providing critical care services, time was exclusive to this patient and dose not include time spent on teaching or in procedures. Kel Jacome MD 01/26/24 1:39 PM Critical Care Medicine * Sherie Beltre MD - 01/26/2024 11:29 AM CDT INTERVENTIONAL STROKE NEUROLOGY PROGRESS NOTE Hospital Day: 3 A 63 year old male was admitted with PMH of DM, HTN, alcohol abuse who presented on 01/23/2024 10:27AM with chief complaint of unresponsiveness. He was found down at his home by the recharger person he had scheduled to visit his home today. His last known well was not clear. I spoke with his sister who said they had not seen or spoken to him in the last 24 hrs. He was able to follow some command upon arrival to the hospital but had a hard time moving his lower limbs. Suspicion of posterior circulation stroke was entertained. MRi brain stat was quickly obtained showing multiple infarcts in the brainstem including the left midbrain and left thalamus and right periventricular region. 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 Decision to take to IVRfor exploration and potential management. He was intubated in the ER for airway protection. CTH stable. Family reports L pupil has been larger for 2+months. Extubated 01/24. 01/26/2024: Patient seen laying in bed, extubated and on NC, tolerating at this time. Airvo at nightdiscussed w/ ICU. Opens eyes to command and following commands at this time. Off Levophed. Family at the bedside, updated and appreciative. All questions answered. MEDICATIONS FOR CURRENT ENCOUNTER: SCHEDULED MEDICATIONS: 0.9% NaCl injection 3 mL, Intracatheter, q8h acetaminophen (Tylenol) tablet 650 mg, Enteral Tube, q4h albuterol-ipratropium (Duo-Neb) nebulizer solution 3 mL, Inhalation, q6h aspirin chew tablet 81 mg, Enteral Tube, QDAY cefTRIAXone (Rocephin) 2,000 mg in 0.9% NaCl IV 50 mL IVPB, Intravenous, q24h clopidogrel (plaVIX) tablet 75 mg, Enteral Tube, QDAY heparin injection 5,000 Units, Subcutaneous, BID insulin aspart (NovoLOG) pen 0-18 Units, Subcutaneous, q4h midodrine (Proamatine) tablet 10 mg, Enteral Tube, q8h senna-docusate (Senokot-S) tablet 2 tablet, Enteral Tube, BID [COMPLETED] magnesium sulfate 2 g in 50 mL bolus, Intravenous, Once [COMPLETED] potassium chloride 40 mEq in 270 mL bolus, Intravenous, Once [COMPLETED] potassium chloride 40 mEq in 270 mL bolus, Intravenous, q4h ??? [] *Hold/Avoid Medication, Other, 0800 and 1999 ??? CONTINUOUS MEDICATIONS: PRN MEDICATIONS: Or Or 0.9% NaCl injection 1-10 mL, Intracatheter, PRN dextrose 10 % IV bolus, Intravenous, PRN dextrose 10 % IV bolus, Intravenous, PRN glucagon (Glucagen) injection 1 mg, Subcutaneous, PRN ondansetron (Zofran) injection 4 mg, Intravenous, q4h PRN ??? prochlorperazine (Compazine) injection 10 mg, Intravenous, q4h PRN Peripheral IV Left Antecubital (Active) Placement Date/Time: 01/23/24 1055 Size (Gauge): 18 G Orientation: Left Location: Antecubital Site Prep: Chlorhexidine Technique: Anatomical Landmarks Insertion attempts (FOR ED ONLY): 1 Number of days: 3 Peripheral IV Left Antecubital (Active) Placement Date/Time: 01/23/24 1136 Orientation: Left Location: Antecubital Site Prep: ChlorhexidineTechnique: Anatomical Landmarks Insertion attempts (FOR ED ONLY): 1 Number of days: 2 Puncture Site Femoral (Active) Date/Time: 01/23/24 1344 Placed by: Alexsander Orientation: Right Puncture Site Location: Femoral Puncture Type: Arterial Number of days: 2 Central Line (Non-Tunneled) Subclavian Triple (Active) Placement Date/Time: 01/23/24 2230 Placed by: Dr Montoya Central Line Checklist utilized: Yes Local Anesthetic Used?: Injectable Orientation: Left Location: Subclavian Lumens: Triple Femoral line indication: Emergency Number of days: 2 Indwelling Transurethral Urinary Catheter (Active) Placement Date/Time: 01/23/24 1137 Placed by: ZACHARY Gunter Size (FR): 18 Urinary Catheter Type: Double-lumen / 2-Way;Temperature probe Catheter Balloon Size: 10 mL Number of attempts: 1 Number of days: 2 BP (!) 176/112 (BP Location: Right arm, Patient Position: Sitting) Pulse 94 Temp 98.8 ??F (37.1??C) (Axillary) Resp 26 Ht 1.93 m (6' 4 ) Wt 133 kg (293 lb 3.4 oz) SpO2 99% Wt Readings from Last 3 Encounters: 01/26/24 133 kg (293 lb 3.4 oz) 09/17/23 (!) 148.6 kg (327 lb 9.6 oz) 05/07/23 (!) 145.2 kg (320 lb) Multisystem Examination: Neck: ROM intact Respiratory: No respiratory distress. Cardiovascular: Normal heart rate, Normal rhythm. GI: Soft, No tenderness Integument: Warm, Dry Neurological Examination: The patient is Drowsy, but awakens easily. He follows simple commands. Speech is speech is absent due to intubation, ET tube in place. L Pupil is 5 mm/fixed, R pupil is 2mm/fixed. Oculocephalic movements are present. Hearing intact. Positive gag with oral suctioning and positive cough with suction. Motor: No involuntary movements were observed. Facial movements are asymmetric on the left . Strength is 4/5 in both UE, and 3/5 in the L LE and 2-3/5 in the R LE. Sensory: Facial and peripheral sensation are intact. Coordination: Unable to perform finger to nose. Gait: Not tested due to patient condition. Labs Recent Labs Component Name 01/24/24 0443 07/23/20 0649 01/20/19 1134 CHOL 229* 254* 258* TRIG 179* 179* 63 HDL 32* 48 63 LDLCALC 161* 173* 179* Recent Labs Component Name 01/26/24 0413 01/25/24 0304 01/24/24 1430 01/24/24 0443 SODIUM 140 141 140 141 POTASSIUM 3.6 3.2* 3.2* 3.1* CHLORIDE 105 102 102 105 CO2 27 26 25 26 BUN 10 12 11 9 CREATININE 0.74 0.78 0.88 0.78 GLUCOSE 115* 181* 195* 178* CALCIUM 8.8 8.6 8.5 7.9* ALBUMIN 2.4* 2.5* 2.5* 2.5* ALKPHOS 75 63 - 62 ALT 10 <6 - 8 AST 21 13 - 17 TBIL 0.4 0.4 - 0.7 TPROT 7.2 7.3 - 7.1 EGFR >90 >90 >90 >90 Evaluation: CT head 01/22: 1. No acute intracranial hemorrhage. 2. Involutional changes with chronic lacunar infarctions and ischemic microangiopathy. 3. Age indeterminate infarction left thalamus and less likely a sequela of trans-synaptic degeneration. MRI brain if there is concern for acute ischemia. CT head 01/23: No acute intracranial hemorrhage. Stable chronic findings. CT angio: Short segment severe, string-like stenosis of the lower basilar artery just above the vertebral confluence. Cerebral Angiogram Impression 01/23/2024: A severe stenosis in the proximal basilar artery, s/p successful balloon angioplasty. Residual stenosis about 50% in lateral view Echo: ??? Left??Ventricle: Left ventricle size is normal. Mildly to moderately increased wall thickness. Normal systolic function. EF 50-55%. Normal wall motion. Diastolic function is indeterminate. ??? Right??Ventricle: Right ventricle is not well visualized. ??? Aortic??Valve: Mild regurgitation. EKG: Results for orders placed or performed during the hospital encounter of 01/23/24 EKG 12-LEAD Result Value Ref Range Ventricular Rate 96 BPM Atrial Rate 96 BPM P-R Interval 146 ms QRS Duration ms 78 ms Q-T Interval ms 360 ms QTC Calculation (Bezet) 454 ms Calculated P [place] 79 degrees Calculated R [place] 76 degrees Calculated T [place] -77 degrees Interpretation EKG Normal sinus rhythm ST & T wave abnormality, consider inferolateral ischemia Abnormal ECG When compared with ECG of 26-JUL-2022 16:28, Premature ventricular complexes are no longer Present Non-specific change in ST segment in Anterior leads Inverted T waves have replaced nonspecific T wave abnormality in Inferior leads T wave amplitude has increased in Anterior leads Confirmed by JUSTICE PURVIS MD ([id number]) on 01/23/2024 2:35:44 PM Tele: Cardiac Rhythm: Sinus Rhythm (01/26/24 1000) LDL: Recent Labs Component Name 01/24/24 0443 07/23/20 0649 01/20/19 1134 LDLCALC 161* 173* 179* HgBA1C: Recent Labs Component Name 01/23/24 1039 09/17/23 1330 10/18/22 1045 HGBA1C 6.1* 6.5 5.9 This patient will benefit from a SGLT-2 or GLP-1, this requires close follow up with PCP or endocrine and lab monitoring. Due to this reason deferred treatment until outpatient follow up. Initial documented NIHSS Score: NIH Total: 13 (01/23/24 1048) Last Documented NIHSS Score: NIH Total: 12 (01/26/24 0755) Depression Screen Score = PHQ-2 PHQ-9 Therapy Recommendations: Discharge OT Discharge Recommendations: Patient would benefit from intensive 3-hour multidisciplinary therapy(01/26/24 0976) This recommendation is made due to ongoing intensive OT functional needs: ability to actively participate in intensive therapy 3 hours/day, 5 days a week;patient has the need for more than one skilled therapy service;motivated to participate in therapy;not at baseline due to impaired ability to complete ADL's;functional mobility is significantly below baseline;likely to return to the community atdischarge with support system;patient and/or caregiver require specialized training;patient demonstrates a significant functional decline and would benefit from skilled therapy intervention to restore function;patient has the ability to progress and demonstrate measurable gains as a result of skilled therapy (01/26/24935) Modified [place] Score: Preadmission Modified [place] Score: 0 (01/26/24935) Current Modified Mervin Score: 5 (01/26/24935) Procedures: Basilar artery??angioplasty 01/23/2024 IMPRESSION - Acute ischemic stroke: Posterior circulation syndrome - Critical Basilar stenosis/thrombosis s/p successful angioplasty - Acute resp failure s/p intubation and mechanical ventilation - Poorly controlled DM - HTN - Alcohol use disorder - Leucocytosis: r/o infectious/stress induced/r/o Asp PNA - 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 - ICU for medical management - Continue for Q2 neuro checks Multidisciplinary rounds have been completed today with the following disciplines: Stroke neurology, Stroke MERCHANDISE FLOW MANAGER, Pharmacist, referral management liaison, and nursing. Pricila Harrison, MSN, CORPORATE FINANCIAL ANALYST, AGNP- Interventional Vascular Neurology [facility] [place] [facility] #[id number] ATTESTATION I have seen and examined the patient with the nurse practitioner. I have re- confirmed the paula elements of the history and performed an examination. I have discussed the patient's care with the nurse practitioner. Extubated safely overnight he is doing well appears to be maintaining his airways though with several apneic episodes. Discussion with the ICU with the plan for airvo during the night. He has been weaned off of Levophed. Exam shows some improvement with movement of both lower extremities noted. Patient would need to be observed 1 more day in the ICU prior to transfer to neuro intermediate care pending stability. 01/26/2024 Sherie Beltre MD Interventional Vascular Neurology [facility] [place] * Brennan Minor RN - 01/26/2024 10:31 AM CDT Problem: Fall Risk Goal: Patient will remain free of falls Outcome: Progressing Problem: Skin Integrity Goal: Skin integrity is maintained or improved Outcome: Progressing Problem: Neurological Deficit Goal: Neurological status is stable or improving Outcome: Progressing Problem: Pain/Discomfort Goal: Patient exhibits reduced pain/discomfort as evidenced by pain scores Outcome: Progressing Problem: Potential for Urinary Catheter-Associated Infection Goal: Signs and Symptoms of urinary catheter-associated infection are avoided Outcome: Progressing * Sloane Serrato OT - 01/26/2024 9:36 AM CDT Occupational Therapy Initial Evaluation OT orders received per Stroke Protocol. Chart reviewed for diagnosis and medical systems review. Nursing consented for OT. Explained purpose of OT and patient consented to participate in therapy. RECOMMENDATIONS/PLAN: Patient would benefit from continued OT services during acute care stay to maximize overall safety and independence in ADLs and functional mobility. OT Discharge Recommendations: Patient would benefit from intensive 3-hour multidisciplinary therapy This recommendation is made due to ongoing intensive OT functional needs: ability to actively participate in intensive therapy 3 hours/day, 5 days a week;patient has the need for more than one skilled therapy service;motivated to participate in therapy;not at baseline due to impaired ability to complete ADL's;functional mobility is significantly below baseline;likely to return to the community atdischarge with support system;patient and/or caregiver require specialized training;patient demonstrates a significant functional decline and would benefit from skilled therapy intervention to restore function;patient has the ability to progress and demonstrate measurable gains as a result of skilled therapy PPE worn by staff: gloves 1. Encounter for central line placement 2. Altered mental status, unspecified altered mental status type 3. Hypoxia 4. Basilar artery thrombosis 5. Acute hypoxemic respiratory failure (HCC) 6. Nausea and vomiting, unspecified vomiting type AM-PAC Daily Activity score for this patient is Daily Activity Raw Score:: 9 Precautions: fall risk, skin, central line, PIV, beltran, SBP 120-180 SUBJECTIVE: Per H&P on 01/22, pt was found down at his home by the recharger person he had scheduled to visit his home today. His last known well was not clear. I spoke with his sister who said they had not seen or spoken to him in the last 24 hrs. He was able to follow some command upon arrival to the hospital but had a hard time moving his lower limbs. Suspicion of posterior circulation stroke was entertained. MRi brain stat was quickly obtained showing multiple infarcts in the brainstem including the left midbrain and left thalamus and right periventricular region. 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 Pt is soft-spoken and difficult to understand at times d/t mumbling but agreeable to work w/ therapy; pt following simple one step commands during session. States he was independent w/ functional mobility w/o AD and able to complete ADLs on his own. Pt states that he lives at home w/ his ; per chart review, states pt lives alone. As communication w/ pt improves, may get further clarity and confirmation of PLOF. Psychosocial: Patient Behaviors: Calm;Cooperative Pt's goal for therapy: not stated Occupational Profile/PLOF: Type of Residence: Private Residence Home Structure: Two Story Primary Bathroom: Second Floor Bathroom : Tub/Shower Combo Equipment at Home: None Mobility: Ambulate-In Community;Ambulate-In Home ;Independent;Without Assistive Device Fallen Within 6 Mos: No Have Help at Home?: Yes, there is help at home now Who manages medications?: staff Vision: No impairment Hearing Exceptions: No impairment Oxygen Therapy: O2 L/M: 3 $ O2 DEVICE: Nasal Cannula $ Pain Assessment: Pain Location #1 Pain Scale/Observation: Numeric (0-10) Pain Rating Score #1: 0 OBJECTIVE: Cognition: Orientation Level: Oriented to Person;Oriented to Place;Disoriented to Situation;Disoriented to Time Cognition: Follows one step commands;Attention/concentration-decreased;Processing-delayed Vision: Pt's left eye closed majority of time but able to open w/ vc's but does not stay open for long. Pt not tracking w/ R eye; may be more of an issue of command following rather than inability tocomplete task. Will need further assessment of vision. RUE Assessment: RUE Assessment AROM - Right Upper Extremity: Exceptions PROM - Right Upper Extremity: (shoulder flexion/abduction approx. 100 degrees) Military Equipment Specialist Strength - Right Upper Extremity: diminished machine pack assembler strength LUE Assessment: LUE Assessment AROM - Left Upper Extremity: Within Functional Limits Strength - Left Upper Extremity: Within Functional Limits Military Equipment Specialist Strength - Left Upper Extremity: WFL Coordination: Rapid Alternating Movements: RUE unable to complete; LUE w/ bradykinesia and dysmetria Pllukz-Udrp-Ljazfl: RUE unable to complete; LUE w/ bradykinesia and dysmetria Serial Opposition: RUE unable to complete; LUE w/ bradykinesia and dysmetria Functional Mobility/Transfers: Rolling: Maximal Assistance to Right;Maximal Assistance to Left (x2) Supine to Sit: Maximum Assistance;X 2;Requires Verbal Cues for Safety;Requires Verbal Cues for Technique Sit to Supine: Maximum Assistance;X 2;Requires Verbal Cues for Safety;Requires Verbal Cues for Technique Sit to Stand: Activity Does Not Occur Stand to Sit: Activity Does Not Occur Basic ADLs (Based on observation and clinical judgement): Feeding: Total Assistance (NPO) Oral Facial Hygiene: Moderate Assistance Bathing: Maximal Assistance Upper Body Dressing: Maximal Assistance Lower Body Dressing: Total Assistance Toileting: Total Assistance (beltran) Activity Tolerance/Oxygen Therapy: Activity Tolerance: Requires rest breaks O2 L/M: 3 $ O2 DEVICE: Nasal Cannula $ Vital signs: BP taken on R UE Before mobility During mobility BP 181/91 (121) 176/112 (133) HR (bpm) 82 94 RR (breaths/min) 23 26 SpO2 (%) 95% 99% LPM 3 3 O2 source NC NC Position Supine in bed Seated EOB Modified [place] Score Preadmission Modified [place] Score: 0 Current Modified [place] Score: 5 ASSESSMENT: Patient presents to OT initial evaluation supine in bed; agreeable to treatment this date. Completed vision, coordination, MMT, and ROM screenings w/ results as noted above. Pt reports nochanges in sensation. Requires max assist x2 to sit EOB for UB elevation and leg advancement. Tolerates sitting EOB for approx. 10 minutes w/ max assist to maintain static sitting balance; able to sit EOB w/ SBA for approx. 15 seconds. Pt w/ R sided weakness but able to move RUE w/ max vc's. LUE stronger and better ROM than RUE but still demonstrating uncoordinated movements. Able to grasp wash cloth in R hand but unable to maintain machine pack assembler strength to bring wash cloth to face. Completes facial hygiene w/ mod assist for thoroughness. Requires max assist x2 to lay supine in bed. Requires max assist x2 to roll to the L and to the R for linens to be changed and for wedge placed under L side for pressure relief. Upon OT departure, patient supine in bed; denies any further requests/needs at this t cristiana. Call light and phone in reach. All lines, monitors, IV's, equipment in place and intact pre and post visit. RN, Yesh, notified of patient's performance/location end of session. Shooter'S Helper, Sona, present to assist throughout the session. Educated patient/family in OT role/purpose and bed mobility. Functional limitation: ADL function and transfers/mobility Problem list and comorbidities: decreased strength, decreased ROM, sensory changes/deficits, decreased endurance/activity tolerance, decreased balance, decreased coordination, apraxia, aphasia, cognitive impairment Rationale for therapy: Patient will benefit from OT to address the above issues. Patient will be seen for: ADL training, transfers, balance, exercise and endurance. Refer to Plan of Care for OT goals. Please refer to the Filed Flowsheets OT Evaluation for further details. If this is the last Occupational Therapy visit, this serves as the discharge summary. Thank you for this referral JOSE E AntonR/Boris [phone] * Miguel Angel Cowart RN - 01/26/2024 5:45 AM CDT Pt oriented x2. Fidgety overnight. Bp within goal range. Midodrine held. Good UOP. NIH 15, completed @ shift change w/ off going RN. Problem: Tobacco Use Goal: Inpatient tobacco-use cessation counseling participation Outcome: Progressing Problem: Fall Risk Goal: Patient will remain free of falls Outcome: Progressing Problem: Skin Integrity Goal: Skin integrity is maintained or improved Outcome: Progressing Problem: Neurological Deficit Goal: Neurological status is stable or improving Outcome: Progressing Problem: Mechanical Ventilation Goal: Patent airway Outcome: Progressing Goal: Oral health is maintained or improved Outcome: Progressing Goal: ET tube will be managed safely Outcome: Progressing Goal: Ability to express needs and understand communication Outcome: Progressing Goal: Mobility/activity is maintained at optimum level for patient Outcome: Progressing Problem: Oral Intake: Inadequate oral intake Description: related to:: decreased ability to consume or tolerate food and/or fluids due to illness Goal: Enteral/parenteral nutrition prescription will be consistent with estimated needs Description: Raza Francis Nutrition Goal: Enteral/Parenteral Nutrition prescription will be consistent with estimated nutrient needs Nutrition Goal Timeframe: Throughout stay Outcome: Progressing Problem: Ineffective breathing pattern related to obstructive sleep apnea Goal: Maintains optimal sleep pattern, as evidenced by relaxed breathing at normal rate and depth. Outcome: Progressing Goal: Adheres to CPAP (Continuous Positive Airway Pressure) device regimen as prescribed. Outcome: Progressing Problem: Sleep deprivation related to sleep apnea. Goal: Achieves restful, refreshing sleep pattern. Outcome: Progressing Problem: Pain/Discomfort Goal: Patient exhibits reduced pain/discomfort as evidenced by pain scores Outcome: Progressing Goal: Patient uses pharmacological and non-pharmacological pain management strategies. Outcome: Progressing Goal: Patient verbalizes acceptable level of pain relief and ability to engage in desired activity. Outcome: Progressing Problem: Potential for Urinary Catheter-Associated Infection Goal: Signs and Symptoms of urinary catheter-associated infection are avoided Outcome: Progressing Problem: Potential for Central Venous Catheter Infection Goal: Signs and Symptoms of Central Venous Catheter Infection are Avoided Outcome: Progressing Problem: Potential for Central Venous Catheter Occlusion Goal: Central Venous Catheter Occlusion is Avoided Outcome: Progressing * Christi Bland RN - 01/25/2024 6:47 PM CDT Mr Vazquez successfully extubated to 4L nasal canula; A&Ox1; NIH 17; Levo weaned off and Midodrine started; now q2h neuro checks per neuro; diuresed with increase in urine output; family updated at bedside with all questions answered; Christi Blnad RN 01/25/2024 6:52 PM * Christi Bland RN - 01/25/2024 6:44 PM CDT Problem: Potential for Urinary Catheter-Associated Infection Goal: Signs and Symptoms of urinary catheter-associated infection are avoided Outcome: Progressing Mr Vazquez will be free of beltran cath related infection this shift; no signs of beltran cath related infection noted; beltran care complete per protocol; care is ongoing Problem: Potential for Central Venous Catheter Infection Goal: Signs and Symptoms of Central Venous Catheter Infection are Avoided Outcome: Progressing Mr Vazquez will be free of CVC related infection this shift; no signs of CVC related infection noted; dressing to CVC remains clean, dry and intact; care is ongoing * Christi Torres RCP - 01/25/2024 4:40 PM CDT Pt extubated to 5L NC with nurse at bedside. No complications. Will continue to monitor and wean as tolerated. * Sherie Beltre MD - 01/25/2024 12:37 PM CDT INTERVENTIONAL STROKE NEUROLOGY PROGRESS NOTE Hospital Day: 2 A 63 year old male was admitted with PMH of DM, HTN, alcohol abuse who presented on 01/23/2024 10:27AM with chief complaint of unresponsiveness. He was found down at his home by the recharger person he had scheduled to visit his home today. His last known well was not clear. I spoke with his sister who said they had not seen or spoken to him in the last 24 hrs. He was able to follow some command upon arrival to the hospital but had a hard time moving his lower limbs. Suspicion of posterior circulation stroke was entertained. MRi brain stat was quickly obtained showing multiple infarcts in the brainstem including the left midbrain and left thalamus and right periventricular region. 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 Decision to take to IVRfor exploration and potential management. He was intubated in the ER for airway protection. CTH stable. Family reports L pupil has been larger for 2+months. 01/25/2024: Patient seen laying in bed intubated. Weaned off all sedation. Opens eyes to command andfollowing commands at this time. SBT today with possible extubation. Wean off levo as tolerated. MEDICATIONS FOR CURRENT ENCOUNTER: SCHEDULED MEDICATIONS: Or *Hold/Avoid Medication, Other, 0800 and 2000 0.9% NaCl injection 3 mL, Intracatheter, q8h acetaminophen (Tylenol) tablet 650 mg, Enteral Tube, q4h albuterol-ipratropium (Duo-Neb) nebulizer solution 3 mL, Inhalation, q6h artificial tears ophthalmic ointment, Each Eye, TID aspirin chew tablet 81 mg, Enteral Tube, QDAY cefTRIAXone (Rocephin) 2,000 mg in 0.9% NaCl IV 50 mL IVPB, Intravenous, q24h chlorhexidine (Peridex) 0.12 % oral solution 15 mL, Swish and Spit, BID clopidogrel (plaVIX) tablet 75 mg, Enteral Tube, QDAY heparin injection 5,000 Units, Subcutaneous, BID insulin aspart (NovoLOG) pen 0-18 Units, Subcutaneous, q4h lansoprazole (Prevacid) suspension 30 mg, Enteral Tube, QDAY potassium chloride 40 mEq in 270 mL bolus, Intravenous, q4h senna-docusate (Senokot-S) tablet 2 tablet, Enteral Tube, BID [COMPLETED] acetaminophen (Tylenol) suppository 650 mg, Rectal, q4h [COMPLETED] acetaminophen (Tylenol) tablet 650 mg, Enteral Tube, q4h [COMPLETED] chlorothiazide (Diuril) 500 mg in 0.9% NaCl IV 50 mL IVPB, Intravenous, Once [COMPLETED] magnesium sulfate 4 g in 100 mL bolus, Intravenous, Once ??? [COMPLETED] potassium chloride (Klor-Con) packet 40 mEq, Enteral Tube, Once CONTINUOUS MEDICATIONS: ??? norepinephrine (Levophed) 8 mg/250 ml D5 infusion premix, Intravenous, Continuous PRN MEDICATIONS: Or Or 0.9% NaCl injection 1-10 mL, Intracatheter, PRN dextrose 10 % IV bolus, Intravenous, PRN dextrose 10 % IV bolus, Intravenous, PRN glucagon (Glucagen) injection 1 mg, Subcutaneous, PRN ondansetron (Zofran) injection 4 mg, Intravenous, q4h PRN ??? prochlorperazine (Compazine) injection 10 mg, Intravenous, q4h PRN Peripheral IV Left Antecubital (Active) Placement Date/Time: 01/23/24 1055 Size (Gauge): 18 G Orientation: Left Location: Antecubital Site Prep: Chlorhexidine Technique: Anatomical Landmarks Insertion attempts (FOR ED ONLY): 1 Number of days: 2 Peripheral IV Left Antecubital (Active) Placement Date/Time: 01/23/24 1136 Orientation: Left Location: Antecubital Site Prep: ChlorhexidineTechnique: Anatomical Landmarks Insertion attempts (FOR ED ONLY): 1 Number of days: 2 Peripheral IV Anterior;Left Hand (Active) Placement Date/Time: 01/23/24 1136 Size (Gauge): 20 G Orientation: Anterior;Left Location: Hand Technique: Anatomical Landmarks Insertion attempts (FOR ED ONLY): 1 Number of days: 2 Enteral - Nasal/Oral Mouth (Oral) (Active) Placement Date/Time: 01/23/24 1145 Placed by: ZACHARY Kapoor Tube Location: Mouth (Oral) Internal Length (cm): 70 Size (FR): 18 Procedure Tolerance: Well Number of days: 2 ETT Endotracheal Tube Cuffed-inflated 8 MM (Active) Placement Date/Time: 01/23/24 1145 Person who placed: Dr. Mcgee Device: Endotracheal Tube Location: Oral Tube Type: Cuffed-inflated Tube size (MM): 8 MM Depth of insertion: 27 CM Measured from: lipsNumber of insertion attempts: 1 Cuff infl... Number of days: 2 Arterial Line (Active) Placement Date/Time: 01/23/24 2249 Placed by: Dr Montoya Orientation: Left Site: radial SitePrep: Chlorhexidine Local Anesthetic Used?: Yes Securement Method: Sutured Number of days: 1 Puncture Site Femoral (Active) Date/Time: 01/23/24 1344 Placed by: Alexsander Orientation: Right Puncture Site Location: Femoral Puncture Type: Arterial Number of days: 1 Central Line (Non-Tunneled) Subclavian Triple (Active) Placement Date/Time: 01/23/24 2230 Placed by: Dr Montoya Central Line Checklist utilized: Yes Local Anesthetic Used?: Injectable Orientation: Left Location: Subclavian Lumens: Triple Femoral line indication: Emergency Number of days: 1 Indwelling Transurethral Urinary Catheter (Active) Placement Date/Time: 01/23/24 1137 Placed by: ZACHARY Gunter Size (FR): 18 Urinary Catheter Type: Double-lumen / 2-Way;Temperature probe Catheter Balloon Size: 10 mL Number of attempts: 1 Number of days: 2 BP 154/74 Pulse 64 Temp 99.7 ??F (37.6 ??C) Resp 16 Ht 1.93 m (6' 4 ) Wt 131 kg (288 lb 12.8 oz) SpO2 100% Wt Readings from Last 3 Encounters: 01/25/24 131 kg (288 lb 12.8 oz) 09/17/23 (!) 148.6 kg (327 lb 9.6 oz) 05/07/23 (!) 145.2 kg (320 lb) Multisystem Examination: Neck: Limited d/t ET tube Respiratory: No respiratory distress. Cardiovascular: Normal heart rate, Normal rhythm. GI: Soft, No tenderness Integument: Warm, Dry Neurological Examination: The patient is responds to verbal stimuli and eyes open spontaneously. He follows simple commands. Speech is speech is absent due to intubation, ET tube in place. L Pupil is 5 mm/fixed, R pupil is 2mm/fixed. Oculocephalic movements are present. Hearing intact. Positive gag with oral suctioning and positive cough with suction. Motor: No involuntary movements were observed. Facial movements are asymmetric on the left . Strength is 4/5 on left UE and LE and 4/5 on right UE and LE , following commands. Sensory: Facial and peripheral sensation are intact. Coordination: Unable to perform finger to nose. Gait: Not tested due to patient condition. Labs Recent Labs Component Name 01/24/24 0443 07/23/20 0649 01/20/19 1134 CHOL 229* 254* 258* TRIG 179* 179* 63 HDL 32* 48 63 LDLCALC 161* 173* 179* Recent Labs Component Name 01/25/24 0304 01/24/24 1430 01/24/24 0443 01/23/24 1045 01/23/24 1039 SODIUM 141 140 141 - 142 POTASSIUM 3.2* 3.2* 3.1* - 3.6 CHLORIDE 102 102 105 - 101 CO2 26 25 26 - 24 BUN 12 11 9 - 10 CREATININE 0.78 0.88 0.78 - 0.97 GLUCOSE 181* 195* 178* - 168* CALCIUM 8.6 8.5 7.9* - 9.0 ALBUMIN 2.5* 2.5* 2.5* - 3.3* ALKPHOS 63 - 62 - 74 ALT <6 - 8 - 10 AST 13 - 17 - 27 TBIL 0.4 - 0.7 - 0.6 TPROT 7.3 - 7.1 - 9.0* EGFR >90 >90 >90 - 87* - = values in this interval not displayed. Evaluation: CT head 01/22: 1. No acute intracranial hemorrhage. 2. Involutional changes with chronic lacunar infarctions and ischemic microangiopathy. 3. Age indeterminate infarction left thalamus and less likely a sequela of trans-synaptic degeneration. MRI brain if there is concern for acute ischemia. CT head 01/23: No acute intracranial hemorrhage. Stable chronic findings. CT angio: Short segment severe, string-like stenosis of the lower basilar artery just above the vertebral confluence. Cerebral Angiogram Impression 01/23/2024: A severe stenosis in the proximal basilar artery, s/p successful balloon angioplasty. Residual stenosis about 50% in lateral view Echo: ??? Left??Ventricle: Left ventricle size is normal. Mildly to moderately increased wall thickness. Normal systolic function. EF 50-55%. Normal wall motion. Diastolic function is indeterminate. ??? Right??Ventricle: Right ventricle is not well visualized. ??? Aortic??Valve: Mild regurgitation. EKG: Results for orders placed or performed during the hospital encounter of 01/23/24 EKG 12-LEAD Result Value Ref Range Ventricular Rate 96 BPM Atrial Rate 96 BPM P-R Interval 146 ms QRS Duration ms 78 ms Q-T Interval ms 360 ms QTC Calculation (Bezet) 454 ms Calculated P [place] 79 degrees Calculated R [place] 76 degrees Calculated T [place] -77 degrees Interpretation EKG Normal sinus rhythm ST & T wave abnormality, consider inferolateral ischemia Abnormal ECG When compared with ECG of 26-JUL-2022 16:28, Premature ventricular complexes are no longer Present Non-specific change in ST segment in Anterior leads Inverted T waves have replaced nonspecific T wave abnormality in Inferior leads T wave amplitude has increased in Anterior leads Confirmed by JUSTICE PURVIS MD ([id number]) on 01/23/2024 2:35:44 PM Tele: Cardiac Rhythm: Sinus Bradycardia (40s-50s) (01/25/24 0800) LDL: Recent Labs Component Name 01/24/24 0443 07/23/20 0649 01/20/19 1134 LDLCALC 161* 173* 179* HgBA1C: Recent Labs Component Name 01/23/24 1039 09/17/23 1330 10/18/22 1045 HGBA1C 6.1* 6.5 5.9 This patient will benefit from a SGLT-2 or GLP-1, this requires close follow up with PCP or endocrine and lab monitoring. Due to this reason deferred treatment until outpatient follow up. Initial documented NIHSS Score: NIH Total: 13 (01/23/24 1048) Last Documented NIHSS Score: NIH Total: 17 (01/25/24 0800) Depression Screen Score = PHQ-2 PHQ-9 Therapy Recommendations: Modified [place] Score: Procedures: Basilar artery??angioplasty 01/23/2024 IMPRESSION - Acute ischemic stroke: Posterior circulation syndrome - Critical Basilar stenosis/thrombosis s/p successful angioplasty - Acute resp failure s/p intubation and mechanical ventilation - Poorly controlled DM - HTN - Alcohol use disorder - Leucocytosis: r/o infectious/stress induced/r/o Asp PNA PLAN - Antiplatelet: ASA 81 - Statin: CK elevated, will start statin when CK lower - VTE prevention with SCDs and Heparin sq - Keep systolic 120-180, wean off Levophed as tolerated. - Maintain euglycemia, SSI - Nutrition: NPO - PT/OT and speech therapy ongoing. - ICU for medical management - SBT and possible extubation if able - Okay for Q2 neuro checks Multidisciplinary rounds have been completed today with the following disciplines: Stroke neurology, Stroke MERCHANDISE FLOW MANAGER, Pharmacist, referral management liaison, and nursing. Pricila Harrison, MSN, CORPORATE FINANCIAL ANALYST, AGNP- Interventional Vascular Neurology [facility] ASCOM #[id number] ATTESTATION I have seen and examined the patient with the nurse practitioner. I have re- confirmed the paula elements of the history and performed an examination. I have discussed the patient's care with the nurse practitioner. Raza is doing well. He is more awake and moving all extremities with more vigorous movement on the L side than the R. he is still small dose of Levophed for blood pressure augmentation, blood pressure appears within goal. Weaning parameters onboard for possible extubation, hopefully if he gets extubated he will be able to maintain his airway and not require re-intubation because given the location of his stroke and involvement of the posterior circulation and his poor baseline, his respiratory status is expected to be compromised by the stroke. We will continue DAPT. 01/25/2024 Sherie Beltre MD Interventional Vascular Neurology [facility] [place] * Travis Dubose, RD/LDN - 01/25/2024 9:35 AM CDT CLINICAL NUTRITION Pt discussed in rounds today. Pt remains intubated, no propofol. Levophed is at 0.05 mcg/kg/min. TFwas increased to 35 ml/hr yesterday. Pt had several episodes of vomiting and TF was discontinued. Unknown date of last BM. Suggesting checking KUB in rounds. Labs reviewed. Current diet order: NPO Current tube feeding order: discontiued MEDICATIONS FOR CURRENT ENCOUNTER: ?? SCHEDULED MEDICATIONS: ?? Or ?? *Hold/Avoid Medication, Other, 0800 and 1999 ?? 0.9% NaCl injection 3 mL, Intracatheter, q8h ?? acetaminophen (Tylenol) tablet 650 mg, Enteral Tube, q4h ?? albuterol-ipratropium (Duo-Neb) nebulizer solution 3 mL, Inhalation, q6h ?? artificial tears ophthalmic ointment, Each Eye, TID ?? aspirin chew tablet 81 mg, Enteral Tube, QDAY ?? cefTRIAXone (Rocephin) 2,000 mg in 0.9% NaCl IV 50 mL IVPB, Intravenous, q24h ?? chlorhexidine (Peridex) 0.12 % oral solution 15 mL, Swish and Spit, BID ?? chlorothiazide (Diuril) 500 mg in 0.9% NaCl IV 50 mL IVPB, Intravenous, Once ?? clopidogrel (plaVIX) tablet 75 mg, Enteral Tube, QDAY ?? heparin injection 5,000 Units, Subcutaneous, BID ?? insulin aspart (NovoLOG) pen 0-18 Units, Subcutaneous, q4h ?? lansoprazole (Prevacid) suspension 30 mg, Enteral Tube, QDAY ?? potassium chloride 40 mEq in 270 mL bolus, Intravenous, q4h ?? senna-docusate (Senokot-S) tablet 2 tablet, Enteral Tube, BID ?? [COMPLETED] acetaminophen (Tylenol) suppository 650 mg, Rectal, q4h ?? [COMPLETED] acetaminophen (Tylenol) tablet 650 mg, Enteral Tube, q4h ?? [COMPLETED] furosemide (Lasix) injection 40 mg, Intravenous, Once ?? [COMPLETED] magnesium sulfate 4 g in 100 mL bolus, Intravenous, Once ?? [COMPLETED] potassium chloride (Klor-Con) packet 40 mEq, Enteral Tube, Once ?? [COMPLETED] potassium chloride 40 mEq in 270 mL bolus, Intravenous, Once ?? CONTINUOUS MEDICATIONS: ?? norepinephrine (Levophed) 8 mg/250 ml D5 infusion premix, Intravenous, Continuous ?? PRN MEDICATIONS: ?? Or ?? Or ?? 0.9% NaCl injection 1-10 mL, Intracatheter, PRN ?? dextrose 10 % IV bolus, Intravenous, PRN ?? dextrose 10 % IV bolus, Intravenous, PRN ?? glucagon (Glucagen) injection 1 mg, Subcutaneous, PRN ?? ondansetron (Zofran) injection 4 mg, Intravenous, q4h PRN ?? 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 If able to resume TF, resume Vital 1.2 at 20 ml/hr. ?? If tolerates advance 10 ml Q12hr to goal 55 ml/hr, water flush per MD. Provides: 1584 kcal, 99 g pro, 1070 ml free water. Monitor per nutrition guidelines. ASCOM [phone] * Macho Solis - 01/25/2024 8:27 AM CDT PT orders acknowledged. Per OT discussion with MDs this AM during turbo rounds, pt not appropriate to mobilize with therapy this date. PT plan to continue to monitor and see when able. Davon SPT Ascom [phone] ?? * Manisha Terry MD - 01/25/2024 8:14 AM CDT ICU Progress Note Subjective: Overnight events: Tmax 38.4 Symptoms: Patient unable to communicate symptoms, but does not appear to be in any distress. Subjective: Filed Vitals: 01/25/24 0615 01/25/24 0626 01/25/24 0756 01/25/24 0759 BP: (!) 220/105 (!) 201/82 Pulse: 64 Resp: 14 Temp: 99.9 ??F (37.7 ??C) 99.9 ??F (37.7 ??C) TempSrc: SpO2: 100% Weight: Height: Artificial airway endotracheal tube Physical Exam: GENERAL APPEARANCE: Acutely ill appearing EYE: sclera anicteric HEENT: NCAT, intubated NECK: Supple RESP: Clear to auscultation bilaterally. No abnormal respiratory effort or retraction noted. Breathsounds are positive bilaterally. CARDIO: Regular rate, rhythm without murmur. : beltran in place GI/AB: soft, nttp, normoactive bowel sounds SKIN: Normal to inspection. Warm, dry, supple, with no changes in moles or sores that will not heal. NEUROMUSC: follows simple commands Output by Drain (mL) 01/23/24 0701 - 01/23/24 1900 01/23/24 190 - 01/24/24 0700 01/24/24 07 - 01/24/24 1900 01/24/24 190 - 01/25/24 0700 01/25/24 0701 - 01/25/24 0814 Enteral - Nasal/Oral Mouth (Oral) 0 200 Peripheral IV Left Antecubital (Active) Placement Date/Time: 01/23/24 1055 Size (Gauge): 18 G Orientation: Left Location: Antecubital Site Prep: Chlorhexidine Technique: Anatomical Landmarks Insertion attempts (FOR ED ONLY): 1 Number of days: 1 Peripheral IV Left Antecubital (Active) Placement Date/Time: 01/23/24 1136 Orientation: Left Location: Antecubital Site Prep: ChlorhexidineTechnique: Anatomical Landmarks Insertion attempts (FOR ED ONLY): 1 Number of days: 1 Peripheral IV Anterior;Left Hand (Active) Placement Date/Time: 01/23/24 1136 Size (Gauge): 20 G Orientation: Anterior;Left Location: Hand Technique: Anatomical Landmarks Insertion attempts (FOR ED ONLY): 1 Number of days: 1 Enteral - Nasal/Oral Mouth (Oral) (Active) Placement Date/Time: 01/23/24 1145 Placed by: ZACHARY Kapoor Tube Location: Mouth (Oral) Internal Length (cm): 70 Size (FR): 18 Procedure Tolerance: Well Number of days: 1 ETT Endotracheal Tube Cuffed-inflated 8 MM (Active) Placement Date/Time: 01/23/24 1145 Person who placed: Dr. Mcgee Device: Endotracheal Tube Location: Oral Tube Type: Cuffed-inflated Tube size (MM): 8 MM Depth of insertion: 27 CM Measured from: lipsNumber of insertion attempts: 1 Cuff infl... Number of days: 1 Arterial Line (Active) Placement Date/Time: 01/23/24 2249 Placed by: Dr Montoya Orientation: Left Site: radial SitePrep: Chlorhexidine Local Anesthetic Used?: Yes Securement Method: Sutured Number of days: 1 Puncture Site Femoral (Active) Date/Time: 01/23/24 1344 Placed by: Alexsander Orientation: Right Puncture Site Location: Femoral Puncture Type: Arterial Number of days: 1 Central Line (Non-Tunneled) Subclavian Triple (Active) Placement Date/Time: 01/23/24 2230 Placed by: Dr Montoya Central Line Checklist utilized: Yes Local Anesthetic Used?: Injectable Orientation: Left Location: Subclavian Lumens: Triple Femoral line indication: Emergency Number of days: 1 Indwelling Transurethral Urinary Catheter (Active) Placement Date/Time: 01/23/24 1137 Placed by: ZACHARY Gunter Size (FR): 18 Urinary Catheter Type: Double-lumen / 2-Way;Temperature probe Catheter Balloon Size: 10 mL Number of attempts: 1 Number of days: 1 Laboratory Results Reviewed Radiology Reviewed Assessment: Hospital Day: 2 Raza Vazquez is a 63 yom with histdory of CAD s/p CABG, obesity, HTN, HLD, DM II who presented to the ICU after an acute ischemic stroke. Timeline 01/22: Presented to ED after being found down. MRI with brainstem infarcts. 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 Transferred to ICU. 01/23: Sedation weaned. Following simple commands 01/24: Failing PSV 2/2 apnea Plan: Respiratory: Acute Respiratory Failure - 2/2 acute ischemic stroke - Continue low tidal volume lung protective ventilation - Wean settings as able - PSV/extubation when clinically appropriate Aspiration PNA - Continue empiric ceftriaxone - Sputum gram stain with GPCs, MRSA swab negative. - Await sputum and blood culture results. Cardiovascular: Permissive Hypertension - SBP goal 120-180 - Continues to require levophed - Add midodrine today CAD - S/p CABG - On aspirin and plavix. - Holding statin 2/2 elevated CK. 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 Holding statin as above Delirium prophylaxis: - Encourage normal sleep-wake cycle: lights on during the day, frequent re- orientation, sleep hygiene, minimize sleep interruptions. - Avoid sedating medications like benzos and antipsychotics, as much as possible. - PT/OT with early mobility as appropriate ID: Aspiration PNA - As above Fevers - Central vs infectious related - Continue scheduled tylenol - Abx and infectious treatment as above Renal: - Strict Is and Os GI/Diet: Nutrition - TFs GI ppx - Lansoprazole Endo: DM II - High dose SSI Q 4 Heme: DVT ppx - SQ heparin Prognosis: Guarded Code Status: Full Code I personally spent 35 minutes providing critical care services, time was exclusive to this patient and dose not include time spent on teaching or in procedures. Manisha Terry MD 01/25/24 8:14 AM Critical Care Medicine * Sloane Caballero, OT - 01/25/2024 7:32 AM CDT Therapy orders acknowledged. Per discussion with MDs this AM during turbo rounds, pt not appropriate to mobilize with therapy this date. Will continue to follow and see when able. JOSE E AntonR/L [phone] * Christi Colbert RCP - 01/25/2024 5:11 AM CDT Patient is mechanically ventilated mode APV/CMV RR 18 VT 550 PEEP 5 FIO2 30%. Patient will continueto be ventilated. Will continue to SBT and assess as able. Attempted 5/5, 8/5, 10/5 pt went apneic all three attempts. MD aware and placed pt in ASV. Patient is mechanically ventilated mode ASV MV 100% PEEP 5 FIO2 30%. ETT tube is 8.0. Patient will continue to be ventilated. Will continue to SBT and assess as able. * Lorna Elizabeth RN - 01/25/2024 2:41 AM CDT Problem: Safety related to restraint use Goal: Absence of injury while restrained Outcome: Progressing Problem: Fall Risk Goal: Patient will remain free of falls Outcome: Progressing Problem: Skin Integrity Goal: Skin integrity is maintained or improved Outcome: Progressing Problem: Neurological Deficit Goal: Neurological status is stable or improving Outcome: Progressing Problem: Mechanical Ventilation Goal: Patent airway Outcome: Progressing * Christi Torres RCP - 01/24/2024 6:17 PM CDT 01/24/24 1649 Patient Verification Patient Identified: By Identification Arm Band;Verified Name;Verified Birthdate ETT Endotracheal Tube Cuffed-inflated 8 MM Placement Date/Time: 01/23/24 1145 Person who placed: Dr. Mcgee Device: Endotracheal Tube Location: Oral Tube Type: Cuffed-inflated Tube size (MM): 8 MM Depth of insertion: 27 CM Measured from: lips Number of insertion attempts: 1 Cuff infl... Status Intact;Secured Current ETT size 8 Tube secured at: 27 Insertion Line Measured at: Teeth Device Site Position Center Secured with Securing device Site Condition Dry Airway Emergency Supplies Available Appropriate Size Mask;Resuscitation Bag with Mask;ResuscitationBag w/PEEP Valve;Suction Device Airway Care/VAE Inline Suction Catheter? Inplace HOB between 30-45 degrees Yes Suctioned? No Mechanical Ventilation Mode VENT MODE APV/CMV Medical Gases O2 % (FiO2) 40 % Vitals ETCO2 (mmHg) 36 mmHg Ventilation Rate SET VENTILATION RATE (bpm) 18 bpm OBSERVED VENTILATION RATE (bpm) 18 bpm Insp Time 1.1 Insp Flow (L/Min) 51.9 l/Min Actual I:E Ratio 1:2 Volumes SET TIDAL VOLUME (mL) 550 ML EXHALED TIDAL VOLUME (ml) 573 ml Observed Minute Ventilation (L/m) 10.1 Liters/Minute Tubing Compensation (ATC) On Ventilator Pressures OBSERVED PEAK INSPIRATORY PRESSURE (cm H2O) 25 cm H2O Mean Airway Pressure (cm H2O) 11 cm H2O PEEP/CPAP 5 cm H20 Sensitivity Flow Trigger 5 Safety & Alarms Airway Emergency Supplies Available Bulb syringe/suction;Resuscitation Bag;Resuscitation Bag with PEEP Valve Humidity Source HME HME Filter In place Expiratory Filter In place Backup Mode Checked Yes Alarm Volume 10 High Pressure Alarm (cm H2O) 50 cm H2O Low Pressure alarm (cmH2O) 5 High Minute Ventilation 20 Low Minute Ventilation 4 High Tidal Volume 1000 Low Tidal Volume 200 ml High Resp Rate 40 Low Resp Rate 8 Apnea (secs) 20 secs High ETCO2 60 mmHg Low ETCO2 20 mmHg * Annamarie Bonilla RN - 01/24/2024 5:17 PM CDT Care Coordination Initial Assessment Case Management screen completed. Anticipated Discharge Date: Transportation at Discharge: Anticipated level of care at discharge: Anticipated level of care provider: None Prior to admission level of care: Home Prior to admit provider: None Discharge Goals and Plans: Patient Goals: HOME Plans: Discharge needs identified. See progress notes for details. Case Management to follow for discharge planning. Upon discharge or transfer to a post acute facility should rehospitalization, home health, rehabilitation, or any other follow up care be required, patient's preference is to stay within the [facility] Network and its affiliates.: Unsure Comments: Lives with: Alone Physical Limitations: Requires Assistance With: None Patient has the following Progressive disease with impairment. Preferred Pharmacy: [id number] [phone] [id number] [facility] [phone] [id number] [facility] [id number] Advance Directive: Yes, has Advance Directive Type of Directive: Durable Power of Merchant Mill Utility Worker for Healthcare Copy Available: Yes, electronic copy available Is copy reviewed and most current: Yes, Reviewed & most current Insurance: Payer/Plan Subscriber Name Rel Member # Group # [employer] - BHAVIN JACKMAN* BITA VAZQUEZ* Self [id number] [address] [id number] Readmission: No Readmission Risk: READMISSION RISK SCORE is 16 at 5:17 PM 01/24/2024. 01/23/2024 Pt BIBEMS from home, he was found unresponsive by an recharger. Unknown LKW. Pt was found covered in urine with a nearby handle of vodka that was empty. Pt was hypoxic for ems so was placed on 2L and a nasal airway was placed and the pt's mental status has improved en route. Code stroke was called in the ED, pt intubated and taken to MRi brain stat showing multiple infarcts in the brainstem including the left midbrain and left thalamus and right periventricular region. 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 Decision to take to IVR for exploration and potential management. (Ezepue). IVR procedure showed proximal basilar artery stenosis, angioplasty to 50%. Dissection to right distal vertebral artery. 01/22: Admitted to ICU 01/23: following simple commands. Family Support (name and phone): Extended Emergency Contact Information Primary Emergency Contact: Fish Vazquezssica Mobile Relation: Daughter Secondary Emergency Contact: Carol Vazquez [facility] Relation: Sister Patient or sales support representative requests care coordination reach out to the family or caregiver listed above regarding discharge planning and at the time of discharge? Yes Patient/Family provided with list of resources? Unknown Preferred Provider / High Quality Network List given?: Yes Reason for provider choice: Insurance, Pt. choice - Physician driven Transportation to MD appointments: Equipment at Home: Equipment at Home: Blood Glucose Monitor Additional equipment needed at home but does not have: PCP: Sylvain Daniels MD Follow-up Appointment: Physician Follow Up Appointment(s) Made: No Reason why no appointment was made with physician: Appointment being made by MD Office Staff Ancillary / Other Services Followup Appointment(s) Made: No Reason why no ancillary service appointment was made: Not Indicated Pharmacy benefit: Yes Medication affordability concerns: No Medication needs: pending clinical course. Hunger Screening: Within the past 12 months, you worried that your food would run out before you got the money to buy more.: Never true Within the past 12 months, the food you bought just didn't last and you didn't have money to get more.: Never true Consult Automotive Parts Salesperson:No Consult Acute Rehab:Yes [facility]HN referral - No Portions of this note have been copied from the medical record, but edited appropriately to accurately reflect the patient's current clinical state. Annamarie Bonilla RN Case Management - ICU 3[address] & 3S [facility] Ascom: [phone] * Lucretia Vega RN - 01/24/2024 3:42 PM CDT Problem: Safety related to restraint use Goal: Absence of injury while restrained Outcome: Progressing Problem: Fall Risk Goal: Patient will remain free of falls Outcome: Progressing Problem: Skin Integrity Goal: Skin integrity is maintained or improved Outcome: Progressing Problem: Neurological Deficit Goal: Neurological status is stable or improving Outcome: Progressing * Sherie Beltre MD - 01/24/2024 12:02 PM CDT INTERVENTIONAL STROKE NEUROLOGY PROGRESS NOTE Hospital Day: 1 A 63 year old male was admitted with PMH of DM, HTN, alcohol abuse who presented on 01/23/2024 10:27AM with chief complaint of unresponsiveness. He was found down at his home by the recharger person he had scheduled to visit his home today. His last known well was not clear. I spoke with his sister who said they had not seen or spoken to him in the last 24 hrs. He was able to follow some command upon arrival to the hospital but had a hard time moving his lower limbs. Suspicion of posterior circulation stroke was entertained. MRi brain stat was quickly obtained showing multiple infarcts in the brainstem including the left midbrain and left thalamus and right periventricular region. 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 Decision to take to IVRfor exploration and potential management. He was intubated in the ER for airway protection. 01/24/2024: Patient seen laying sedated and intubated. Wean off Fentayl and start precedex to obtainmore accurate neuro exam. CTH stable. Family reports L pupil has been larger for 2+months. Family at the beside updated and appreciative. All questions answered. MEDICATIONS FOR CURRENT ENCOUNTER: ??? SCHEDULED MEDICATIONS: ??? Or ??? *Hold/Avoid Medication, Other, 0800 and 1999 ??? 0.9% NaCl injection 3 mL, Intracatheter, q8h ??? acetaminophen (Tylenol) suppository 650 mg, Rectal, q4h ??? acetaminophen (Tylenol) tablet 650 mg, Enteral Tube, q4h ??? artificial tears ophthalmic ointment, Each Eye, TID ??? cefTRIAXone (Rocephin) 2,000 mg in 0.9% NaCl IV 50 mL IVPB, Intravenous, q24h ??? chlorhexidine (Peridex) 0.12 % oral solution 15 mL, Swish and Spit, BID ??? insulin aspart (NovoLOG) pen 0-12 Units, Subcutaneous, q4h ??? lansoprazole (Prevacid) suspension 30 mg, Enteral Tube, QDAY ??? senna-docusate (Senokot-S) tablet 2 tablet, Enteral Tube, BID ??? [COMPLETED] calcium gluconate 2 g in 100 mL NaCl 0.675%, Intravenous, Once ??? [COMPLETED] furosemide (Lasix) injection 40 mg, Intravenous, Once ??? [COMPLETED] magnesium sulfate 2 g in 50 mL bolus, Intravenous, Once ??? [COMPLETED] potassium chloride 20 mEq in 100 mL SW bolus, Intravenous, Once ??? [COMPLETED] potassium chloride 40 mEq in 270 mL bolus, Intravenous, Once ??? [COMPLETED] tirofiban (Aggrastat) 0.05 mg/mL bolus from infusion bag, Intravenous, BOLUS FROM BAG ONCE ??? [START ON 01/25/2024] aspirin chew tablet 81 mg, Enteral Tube, QDAY ??? [START ON 01/25/2024] heparin injection 5,000 Units, Subcutaneous, BID ??? CONTINUOUS MEDICATIONS: ??? fentaNYL 2500 mcg/50mL infusion, Intravenous, Continuous ??? norepinephrine (Levophed) 8 mg/250 ml D5 infusion premix, Intravenous, Continuous ??? tirofiban (Aggrastat) 0.05 mg/mL infusion, Intravenous, Continuous ??? PRN MEDICATIONS: ??? Or ??? Or ??? 0.9% NaCl injection 1-10 mL, Intracatheter, PRN ??? dextrose 10 % IV bolus, Intravenous, PRN ??? dextrose 10 % IV bolus, Intravenous, PRN ??? fentaNYL (Sublimaze) bolus from infusion bag 50 mcg, Intravenous, BOLUS FROM BAG PRN ??? glucagon (Glucagen) injection 1 mg, Subcutaneous, PRN ??? glucose (Diabetic Use) oral gel, Oral, PRN Peripheral IV Left Antecubital (Active) Placement Date/Time: 01/23/24 1055 Size (Gauge): 18 G Orientation: Left Location: Antecubital Site Prep: Chlorhexidine Technique: Anatomical Landmarks Insertion attempts (FOR ED ONLY): 1 Number of days: 1 Peripheral IV Left Antecubital (Active) Placement Date/Time: 01/23/24 1136 Orientation: Left Location: Antecubital Site Prep: ChlorhexidineTechnique: Anatomical Landmarks Insertion attempts (FOR ED ONLY): 1 Number of days: 1 Peripheral IV Anterior;Left Hand (Active) Placement Date/Time: 01/23/24 1136 Size (Gauge): 20 G Orientation: Anterior;Left Location: Hand Technique: Anatomical Landmarks Insertion attempts (FOR ED ONLY): 1 Number of days: 1 Enteral - Nasal/Oral Mouth (Oral) (Active) Placement Date/Time: 01/23/24 1145 Placed by: ZACHARY Kapoor Tube Location: Mouth (Oral) Internal Length (cm): 70 Size (FR): 18 Procedure Tolerance: Well Number of days: 1 ETT Endotracheal Tube Cuffed-inflated 8 MM (Active) Placement Date/Time: 01/23/24 1145 Person who placed: Dr. Mcgee Device: Endotracheal Tube Location: Oral Tube Type: Cuffed-inflated Tube size (MM): 8 MM Depth of insertion: 27 CM Measured from: lipsNumber of insertion attempts: 1 Cuff infl... Number of days: 1 Arterial Line (Active) Placement Date/Time: 01/23/24 2249 Placed by: Dr Montoya Orientation: Left Site: radial SitePrep: Chlorhexidine Local Anesthetic Used?: Yes Securement Method: Sutured Number of days: 0 Puncture Site Femoral (Active) Date/Time: 01/23/24 1344 Placed by: Alexsander Orientation: Right Puncture Site Location: Femoral Puncture Type: Arterial Number of days: 1 Central Line (Non-Tunneled) Subclavian Triple (Active) Placement Date/Time: 01/23/24 2230 Placed by: Dr Montoya Central Line Checklist utilized: Yes Local Anesthetic Used?: Injectable Orientation: Left Location: Subclavian Lumens: Triple Femoral line indication: Emergency Number of days: 0 Indwelling Transurethral Urinary Catheter (Active) Placement Date/Time: 01/23/24 1137 Placed by: ZACHARY Gunter Size (FR): 18 Urinary Catheter Type: Double-lumen / 2-Way;Temperature probe Catheter Balloon Size: 10 mL Number of attempts: 1 Number of days: 1 BP 162/94 Pulse 68 Temp (!) 101.5 ??F (38.6 ??C) Resp 18 Ht 1.93 m (6' 4 ) Wt (!) 142.4 kg (314 lb) SpO2 99% Wt Readings from Last 3 Encounters: 01/24/24 (!) 142.4 kg (314 lb) 09/17/23 (!) 148.6 kg (327 lb 9.6 oz) 05/07/23 (!) 145.2 kg (320 lb) Multisystem Examination: Neck: Limited d/t ET tube Respiratory: No respiratory distress. Cardiovascular: Normal heart rate, Normal rhythm. GI: Soft, No tenderness Integument: Warm, Dry Neurological Examination: The patient is responds to pain and responds to verbal stimuli. He follows simple commands on the Rside. Speech is speech is absent due to intubation, ET tube in place. L Pupil is 5 mm/fixed, R pupil is 2mm/fixed. Oculocephalic movements are present. Hearing intact. weak gag with oral suctioning and positive cough with suction. Motor: No involuntary movements were observed. Facial movements are asymmetric on the left . Strength is Withdraws to pain on the R side, following commands when off sedation. Sensory: Facial and peripheral sensation are responds to painful stimuli in all extremities. Coordination: Unable to perform finger to nose. Gait: Not tested due to patient condition. Labs Recent Labs Component Name 01/24/24 0443 07/23/20 0649 01/20/19 1134 CHOL 229* 254* 258* TRIG 179* 179* 63 HDL 32* 48 63 LDLCALC 161* 173* 179* Recent Labs Component Name 01/24/24 0443 01/23/24 2004 01/23/24 1045 01/23/24 1039 07/27/22 0244 07/26/22 1653 SODIUM 141 141 - 142 - 138 POTASSIUM 3.1* 3.2* - 3.6 - 4.0 CHLORIDE 105 103 - 101 - 96* CO2 26 24 - 24 - 29 BUN 9 9 - 10 - 13 CREATININE 0.78 0.88 - 0.97 - 0.94 GLUCOSE 178* 235* - 168* - 151* CALCIUM 7.9* 8.5 - 9.0 - 9.2 ALBUMIN 2.5* 2.9* - 3.3* - 4.0 ALKPHOS 62 - - 74 - 90 ALT 8 - - 10 - 10 AST 17 - - 27 - 14 TBIL 0.7 - - 0.6 - 0.6 TPROT 7.1 - - 9.0* - 8.4* EGFR >90 >90 84* 87* - >90 - = values in this interval not displayed. Evaluation: CT head 01/22: 1. No acute intracranial hemorrhage. 2. Involutional changes with chronic lacunar infarctions and ischemic microangiopathy. 3. Age indeterminate infarction left thalamus and less likely a sequela of trans-synaptic degeneration. MRI brain if there is concern for acute ischemia. CT head 01/23: No acute intracranial hemorrhage. Stable chronic findings. CT angio: Short segment severe, string-like stenosis of the lower basilar artery just above the vertebral confluence. Cerebral Angiogram Impression 01/23/2024: A severe stenosis in the proximal basilar artery, s/p successful balloon angioplasty. Residual stenosis about 50% in lateral view Echo: Completed, awaiting read. EKG: Results for orders placed or performed during the hospital encounter of 01/23/24 EKG 12-LEAD Result Value Ref Range Ventricular Rate 96 BPM Atrial Rate 96 BPM P-R Interval 146 ms QRS Duration ms 78 ms Q-T Interval ms 360 ms QTC Calculation (Bezet) 454 ms Calculated P [place] 79 degrees Calculated R [place] 76 degrees Calculated T [place] -77 degrees Interpretation EKG Normal sinus rhythm ST & T wave abnormality, consider inferolateral ischemia Abnormal ECG When compared with ECG of 26-JUL-2022 16:28, Premature ventricular complexes are no longer Present Non-specific change in ST segment in Anterior leads Inverted T waves have replaced nonspecific T wave abnormality in Inferior leads T wave amplitude has increased in Anterior leads Confirmed by JUSTICE PURVIS MD ([id number]) on 01/23/2024 2:35:44 PM Tele: Cardiac Rhythm: Sinus Rhythm (01/24/24 0600) LDL: Recent Labs Component Name 01/24/24 0443 07/23/20 0649 01/20/19 1134 LDLCALC 161* 173* 179* HgBA1C: Recent Labs Component Name 01/23/24 1039 09/17/23 1330 10/18/22 1045 HGBA1C 6.1* 6.5 5.9 This patient will benefit from a SGLT-2 or GLP-1, this requires close follow up with PCP or endocrine and lab monitoring. Due to this reason deferred treatment until outpatient follow up. 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 Multidisciplinary rounds have been completed today with the following disciplines: Stroke neurology, Stroke MERCHANDISE FLOW MANAGER, Pharmacist, referral management liaison, and nursing. Pricila Harrison, MSN, [employer]PORATE FIN[employer]CIAL ANALYST, AGNP- Interventional Vascular Neurology [facility] #[id number] ATTESTATION I have seen and examined the patient with the nurse practitioner. I have re- confirmed the paula elements of the history and performed an examination. I have discussed the patient's care with the nurse practitioner. Patient with brainstem stroke and severe basilar disease. Intubated for airway protection. Still having a hard time with the airway. Off sedation he followed simple commands and moved the R side morepertinently. Plan is to wean sedation, perhaps transition to precedex and sedate as least as possible to evaluate if he can maintain airway on his own. Discussed with family at bedside. Prognosis remain guarded. Continue DAPT> 01/24/2024 Sherie Beltre MD Interventional Vascular Neurology [facility] * Sis Mendoza - 01/24/2024 9:32 AM CDT Echocardiogram completed today. * Saundra Berger SLP - 01/24/2024 8:34 AM CDT Speech Pathology Orders received per stroke protocol and chart reviewed. Noted pt is currently intubated and not appropriate for ST. ST to follow for extubation, pt to remain NPO upon extubation pending ST eval. Thank you for this referral, CHARI BoykinS, [facility] CONSULTANT [phone] * Travis Dubose RD/HAFSA - 01/24/2024 7:55 AM CDT Initial Nutrition Assessment Brief Synopsis: Patient at Nutrition Risk but does not meet malnutrition criteria. Nutrition Plan: ?? Increase Vital 1.2 to 35 ml/hr, water flush per MD. Provides: 1008 kcal, 63 g pro, 681 ml free water. ?? Monitor protein needs to meet goal by vent day 4. Patient Summary: Consult received for TF formula/rate per dietitian. Pt was admitted after being found down at home,dx with multiple brainstem infarcts. Pt is intubated. Propofol is now off. Levophed is at 0.03 mc/kg/min. TF was started with Vital 1.2 at 20 ml/hr via OG, tolerating so far. Labs reviewed. Wt hx show insignificant wt change since September. Will increase TF as noted above, continue to follow for advancement. Nutrition care plan discussed today during multidisciplinary rounds. Assessment: Med/Surg History and Clinical Diagnoses: Multiple brainstem infarcts, acute respiratory failure, hypotension, poorly controlled DM, alcohol use disorder; Hx: DM2, CAD, CABG 2018, anemia, HLD, obesity Height: 193 cm (6' 4 ) Weight: (!) 142.5 kg (314 lb 2.5 oz) Weight Method : Bed scale BMI: Body mass index is 38.24 kg/m??. BMI Range: Severely Obese Class 2 [facility] Nutrition Assessment Weight Weight Method 10/18/2022 9:55 AM 142.883 kg (H) MD Office 05/07/2023 1:07 PM 145.151 kg (H) MD Office 09/17/2023 1:24 PM 148.598 kg (H) MD Office 01/23/2024 10:55 AM 136.079 kg Stated 01/23/2024 5:00 PM 136 kg Bed scale 01/24/2024 4:00 AM 142.5 kg (H) Bed scale Legend: (H) High Diet order accuracy Current diet order: NPO Current tube feeding order: Vital 1.2 at 20 ml/hr, water flush per MD (576 kcal, 36 g pro, 389 ml free water) Nutrition recommendation: alter/change nutrition order Food Allergies: No known food allergies GI Concerns: None Chewing/Swallowing: Other (Comment) (intubated) Pain affecting intake: No Estimated Needs: KCAL: 1331-8172 kcal/day (11-14 kcal/kg BW) (vent/obesity) Protein (g): 137-184 g pro/day (1.5-2.0 g/kg IBW) Fluid (ml): Other (comments) (per MD) Needs based on: Kcal/kg- (Comment) (kcal - 142.5 kg BW 01/23; pro - 91.8 kg IBW) Recommended Access Route: TF Component Name 01/24/2444201/23/24200301/23/24 1039 SODIUM 141 141 142 POTASSIUM 3.1* 3.2* 3.6 CHLORIDE 105 103 101 CO2 BUN 9 9 10 CREATININE 0.78 0.88 0.97 GLUCOSE 178* 235* 168* CALCIUM 7.9* 8.5 9.0 ALT 8 - 10 ALKPHOS 62 - 74 AST 17 - 27 TBIL 0.7 - 0.6 TPROT 7.1 - 9.0* EGFR >90 >90 87* EGFRAFR - - - ALBUMIN 2.5* 2.9* 3.3* Component Name 01/23/24 1039 09/17/23 1330 10/18/22 1045 HGBA1C 6.1* 6.5 5.9 EAG 128 - - Component Name 01/24/2444207/23/20 0649 CHOL 229* 254* TRIG 179* 179* HDL 32* 48 VLDL 36* - LDLCALC 161* 173* CHOLHDL - - MEDICATIONS FOR CURRENT ENCOUNTER: ?? SCHEDULED MEDICATIONS: ?? Or ?? Or ?? *Hold/Avoid Medication, Other, 799 and 1999 ?? 0.9% NaCl injection 3 mL, Intracatheter, q8h ?? acetaminophen (Tylenol) suppository 650 mg, Rectal, q4h ?? acetaminophen (Tylenol) tablet 650 mg, Enteral Tube, q4h ?? aspirin suppository 300 mg, Rectal, QDAY ?? aspirin tablet 325 mg, Enteral Tube, QDAY ?? atorvastatin (Lipitor) tablet 80 mg, Enteral Tube, AT BEDTIME ?? cefTRIAXone (Rocephin) 2,000 mg in 0.9% NaCl IV 50 mL IVPB, Intravenous, q24h ?? chlorhexidine (Peridex) 0.12 % oral solution 15 mL, Swish and Spit, BID ?? insulin aspart (NovoLOG) pen 0-12 Units, Subcutaneous, q4h ?? lansoprazole (Prevacid) suspension 30 mg, Enteral Tube, QDAY ?? potassium chloride 40 mEq in 270 mL bolus, Intravenous, Once ?? senna-docusate (Senokot-S) tablet 2 tablet, Enteral Tube, BID ?? [COMPLETED] calcium gluconate 2 g in 100 mL NaCl 0.675%, Intravenous, Once ?? [COMPLETED] etomidate (Amidate) injection 20 mg, Intravenous, Now ?? [COMPLETED] fentaNYL (PF) (Sublimaze) injection 100 mcg, Intravenous, Once ?? [COMPLETED] magnesium sulfate 2 g in 50 mL bolus, Intravenous, Once ?? [COMPLETED] midazolam (Versed) injection 5 mg, Intravenous, Once ?? [COMPLETED] potassium chloride 20 mEq in 100 mL SW bolus, Intravenous, Once ?? [COMPLETED] rocuronium (Zemuron) injection 100 mg, Intravenous, Once ?? [COMPLETED] tirofiban (Aggrastat) 0.05 mg/mL bolus from infusion bag, Intravenous, BOLUS FROM BAG ONCE ?? CONTINUOUS MEDICATIONS: ?? fentaNYL 2500 mcg/50mL infusion, Intravenous, Continuous ?? norepinephrine (Levophed) 8 mg/250 ml D5 infusion premix, Intravenous, Continuous ?? tirofiban (Aggrastat) 0.05 mg/mL infusion, Intravenous, Continuous Skin/Wound: Exceptions per nursing assessment (dry) Education needed: Stroke Nutrition Therapy Education Provided: Prior to Discharge (if appropriate) Nutrition Care Process (1) Nutrition Diagnostic Statement: Inadequate oral intake related to:: decreased ability to consume or tolerate food and/or fluids due to illness as evidenced by:: --- (NPO / intubated) Nutrition Intervention: Enteral nutrition: Monitoring: - Nutrition support. - Weight, labs. Evaluation: Diagnostic Statement #1 Goals: Nutrition Goal: Enteral/Parenteral Nutrition prescription will be consistent with estimated nutrient needs Nutrition Goal Timeframe: Throughout stay Nutrition Goal Progress: New goal established * Manisha Terry MD - 01/24/2024 7:38 AM CDT ICU Progress Note Subjective: Overnight events: Admitted to ICU Symptoms: Patient unable to communicate symptoms, but does not appear to be in any distress. Subjective: Filed Vitals: 01/24/24 0515 01/24/24 0530 01/24/24 0611 01/24/24 0630 BP: Pulse: 78 76 Resp: 18 18 Temp: (!) 100.9 ??F (38.3 ??C) 98.4 ??F (36.9 ??C) TempSrc: Oral SpO2: 100% 100% Weight: Height: Artificial airway endotracheal tube Physical Exam: GENERAL APPEARANCE: Acutely ill appearing EYE: sclera anicteric HEENT: NCAT, intubated NECK: Supple RESP: Clear to auscultation bilaterally. No abnormal respiratory effort or retraction noted. Breathsounds are positive bilaterally. CARDIO: Regular rate, rhythm without murmur. : beltran in place GI/AB: soft, nttp, normoactive bowel sounds SKIN: Normal to inspection. Warm, dry, supple, with no changes in moles or sores that will not heal. NEUROMUSC: follows simple commands Output by Drain (mL) 01/22/24 0701 - 01/22/24 1900 01/22/24 190 - 01/23/24 0700 01/23/24 0701 - 01/23/24 1900 01/23/24 190 - 01/24/24 0700 01/24/24 0701 - 01/24/24 0738 Enteral - Nasal/Oral Mouth (Oral) 0 Peripheral IV Left Antecubital (Active) Placement Date/Time: 01/23/24 1055 Size (Gauge): 18 G Orientation: Left Location: Antecubital Site Prep: Chlorhexidine Technique: Anatomical Landmarks Insertion attempts (FOR ED ONLY): 1 Number of days: 0 Peripheral IV Left Antecubital (Active) Placement Date/Time: 01/23/24 1136 Orientation: Left Location: Antecubital Site Prep: ChlorhexidineTechnique: Anatomical Landmarks Insertion attempts (FOR ED ONLY): 1 Number of days: 0 Peripheral IV Anterior;Left Hand (Active) Placement Date/Time: 01/23/24 1136 Size (Gauge): 20 G Orientation: Anterior;Left Location: Hand Technique: Anatomical Landmarks Insertion attempts (FOR ED ONLY): 1 Number of days: 0 Enteral - Nasal/Oral Mouth (Oral) (Active) Placement Date/Time: 01/23/24 1145 Placed by: ZACHARY Kapoor Tube Location: Mouth (Oral) Internal Length (cm): 70 Size (FR): 18 Procedure Tolerance: Well Number of days: 0 ETT Endotracheal Tube Cuffed-inflated 8 MM (Active) Placement Date/Time: 01/23/24 1145 Person who placed: Dr. Mcgee Device: Endotracheal Tube Location: Oral Tube Type: Cuffed-inflated Tube size (MM): 8 MM Depth of insertion: 27 CM Measured from: lipsNumber of insertion attempts: 1 Cuff infl... Number of days: 0 Arterial Line (Active) Placement Date/Time: 01/23/24 2249 Placed by: Dr Montoya Orientation: Left Site: radial SitePrep: Chlorhexidine Local Anesthetic Used?: Yes Securement Method: Sutured Number of days: 0 Puncture Site Femoral (Active) Date/Time: 01/23/24 1344 Placed by: Alexsander Orientation: Right Puncture Site Location: Femoral Puncture Type: Arterial Number of days: 0 Central Line (Non-Tunneled) Subclavian Triple (Active) Placement Date/Time: 01/23/24 2230 Placed by: Dr Montoya Central Line Checklist utilized: Yes Local Anesthetic Used?: Injectable Orientation: Left Location: Subclavian Lumens: Triple Femoral line indication: Emergency Number of days: 0 Indwelling Transurethral Urinary Catheter (Active) Placement Date/Time: 01/23/24 1137 Placed by: ZACHARY Gunter Size (FR): 18 Urinary Catheter Type: Double-lumen / 2-Way;Temperature probe Catheter Balloon Size: 10 mL Number of attempts: 1 Number of days: 0 Laboratory Results Reviewed Radiology Reviewed Assessment: Hospital Day: 1 Raza Vazquez is a 63 yom with histdory of CAD s/p CABG, obesity, HTN, HLD, DM II who presented to the ICU after an acute ischemic stroke. Timeline 01/22: Presented to ED after being found down. MRI with brainstem infarcts. 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 Transferred to ICU. 01/23: Sedation weaned. Following simple commands Plan: Respiratory: Acute Respiratory Failure - 2/2 acute ischemic stroke - Continue low tidal volume lung protective ventilation - Wean settings as able - PSV/extubation when clinically appropriate Aspiration PNA - Continue empiric ceftriaxone - Sputum gram stain with GPCs, MRSA swab negative. - Await sputum and blood culture results. Cardiovascular: Permissive Hypertension - SBP goal 160-200 - Continues to require levophed CAD - S/p CABG - On aspirin and plavix. - Holding statin 2/2 elevated CK. 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 Holding statin as above Pain management - Continue fentanyl infusion for analgesia Delirium prophylaxis: - Encourage normal sleep-wake cycle: lights on during the day, frequent re- orientation, sleep hygiene, minimize sleep interruptions. - Avoid sedating medications like benzos and antipsychotics, as much as possible. - PT/OT with early mobility as appropriate ID: Aspiration PNA - As above Fevers - Central vs infectious related - Continue scheduled tylenol - Abx and infectious treatment as above Renal: - Strict Is and Os - Diuresed with lasix today GI/Diet: Nutrition - TFs GI ppx - Lansoprazole Endo: DM II - Medium dose SSI Q 4 Heme: DVT ppx - Initiate SQ heparin tomorrow Prognosis: Guarded Code Status: Full Code D/W Dr Beltre I personally spent 40 minutes providing critical care services, time was exclusive to this patient and dose not include time spent on teaching or in procedures. Manisha Terry MD 01/24/24 7:38 AM Critical Care Medicine * Sloane Caballero OT - 01/24/2024 7:21 AM CDT Therapy orders acknowledged. Chart review complete. Pt continues to be intubated and sedated with aRASS of -4. Will continue to follow and see when appropriate for mobilization. JOSE E AntonR/L [phone] * Jocy Guy RCP - 01/24/2024 4:22 AM CDT Mr. Vazquez continues on mechanical ventilation with settings of: Mode APV/CMV, VT 550, RR 18, PEEP 5, FiO2 40%. No SBT this shift. * Lorna Elizabeth RN - 01/23/2024 11:47 PM CDT Problem: Safety related to restraint use Goal: Absence of injury while restrained Outcome: Progressing Problem: Fall Risk Goal: Patient will remain free of falls Outcome: Progressing Problem: Skin Integrity Goal: Skin integrity is maintained or improved Outcome: Progressing Problem: Neurological Deficit Goal: Neurological status is stable or improving Outcome: Progressing Problem: Mechanical Ventilation Goal: Patent airway Outcome: Progressing Goal: ET tube will be managed safely Outcome: Progressing * Tommie Kemp RCP - 01/23/2024 11:50 AM CDT ETT placement and verification completed with color change noted. Bilateral breath sounds noted. Epigastrium auscultation-negative. Visual exam of thoracic movement with respirations noted. * Lyrci Adams RN - 01/23/2024 10:52 AM CDT 01/23/24 1048 Vital Signs Pulse 98 Resp 24 BP (!) 203/132 SpO2 98 % NIH Stroke Scale Assessment Interval Baseline Level of Consciousness 1 LOC: Questions (Month and Age) 1 LOC: Commands (opens/closes, eyes/fists) 0 Best Gaze 2 Visual 2 Facial Palsy 0 Motor Arm Function - Right 0 Motor Arm Function - Left 0 Motor Leg - Right 3 Motor Leg - Left 3 Limb Ataxia 0 Sensory 0 Best Language 0 Dysarthria 1 Extinction and Inattention 0 NIH Total 13 Admit Date and Time- ED Arrival:01/23/24 1027 Code Stroke Page: 1018 Code Team Arrival: 1025 Dr. Mcgee met the patient at the Stroke Stop on their arrival. Code Stroke Nurses in attendance: Rex Gunter ED RN Name: Jaun FELICIA- unknown Stroke Risk Factors- Age, Sex, Carotid stenosis, Diabetes mellitus, Excessive alcohol use, Heart Disease, Hyperlipidemia, Hypertension, Obesity/Inactivity, Sleep Apnea, and Tobacco use INR- Recent Labs Component Name 07/26/22 1653 01/25/18 0026 01/24/18 1540 INR 1.1 1.1 1.2 Cr- Recent Labs Component Name 07/27/22 0244 07/26/22 1653 12/24/19 0923 CREATININE 0.98 0.94 0.97 Vital Signs- Vitals: 01/23/24 1029 01/23/24 1031 01/23/24 1041 01/23/24 1048 BP: (!) 209/123 (!) 203/132 Pulse: 99 100 98 Resp: Temp: 99.3 ??F (37.4 ??C) SpO2: 90% 94% 98% Blood Sugar- 140 POC INR Time Obtained: 1045 Code Stroke Summary- Patient is a 63 year old Black/ male who presents via EMS unresponsive, found down by recharger who showed up to his house for an appointment. Unknown LKW, sister Carol called and unable to recall last time she spoke to him. CTH obtained and stroke MD called.Order obtained for UDS, carbon monoxide level, and ABG and return to ED. CTA obtained and patient returned to ED. After reviewing imaging with radiology, orders obtained for STAT MRI. Patient intubated prior to MRI. MRI obtained and patient transported to IVR. Report given to IVR nurseHarman. Plansfor admission to ICU with stroke order set. ED MD aware. Time Neuro MD paged/called: 1045 Neuro MD answered/returned call: 1045 Code end time: 1340 Total time: 3 hr 22 min * Jason Shelby, PharmD - 01/23/2024 10:36 AM CDT [facility] Pharmacy Services Admission Medication Review Raza Vazquez is a 63 year old male I have reviewed patient's home medication list with the patient's medication bottles. The medication list review was after the physician has seen and acted upon, and is now ready for re-review/order by physician. Medication List Revisions Medications removed: - albuterol HFA - amlodipine - ASA - Carvedilol - glipizide - nitro SL tabs - spironolactone Note: could not confirm w/ patient d/t AMS. Confirmed with prescription bottles brought with patient upon arrival. Thank you for the opportunity to take part of Raza Vazquez's care. Zain PayanD documented in this encounter H&P Notes * Sherie Beltre MD - 01/23/2024 12:27 PM CDT ADMIT NOTE INTERVENTIONAL VASCULAR NEUROLOGY [facility] Reason for admission: Chief Complaint Patient presents with ??? Altered mental status HISTORY OF PRESENTING ILLNESS History was obtained from a review of the electronic record and discussion with the patient . Raza Vazquez is a 63 year old male with PMH of DM, HTN, alcohol abuse who presented on 01/23/2024 10:27 AM with chief complaint of unresponsiveness. He was found down at his home by the recharger person he had scheduled to visit his home today. His last known well was not clear. I spokewith his sister who said they had not seen or spoken to him in the last 24 hrs. He was able to follo w some command upon arrival to the hospital but had a hard time moving his lower limbs. Suspicion of posterior circulation stroke was entertained. MRi brain stat was quickly obtained showing multipleinfarcts in the brainstem including the left midbrain and left thalamus and right periventricular region. 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 Decision to take to IVR for exploration and potential management. He was intubated in the ER for airway protection. PMH Past Medical History: Diagnosis Date ??? Anemia 01/2018 ??? Asthma (HCC) ??? Chest congestion 08/05/2020 ??? Confusional arousals 08/05/2020 ??? Controlled type 2 diabetes mellitus without complication, without long-term current use of insulin ([facility]) 09/28/2011 ??? 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 Cough syncope 2017 ??? Daytime sleepiness 08/05/2020 ??? Essential hypertension 01/23/2018 ??? Hyperlipidemia 08/05/2020 ??? Inadequate sleep hygiene 08/05/2020 ??? Morbid obesity with BMI of 40.0-44.9, adult (HCC) 08/05/2020 ??? Nocturia 08/05/2020 ??? Obesity (BMI 30-39.9) 04/24/2012 ??? Other chest pain 09/04/2018 ??? S/P CABG x 3 01/24/2018 ??? Snoring 08/05/2020 ??? Superficial postoperative wound infection 02/23/2018 sternum ??? Wears glasses 08/05/2020 ??? Weight gain 08/05/2020 40# past 6-8 months-covid ??? Wound of sternal region 02/23/2018 [facility] Past Surgical History: Procedure Laterality Date ??? COLONOSCOPY N/A 11/12/2020 N/A; COLONOSCOPY SCREEN ??? Coronary Artery Bypass Graft N/A 01/24/2018 N/A; Coronary artery bypass graft x 3 ??? Tonsillectomy Meds (Not in a hospital admission) Current Facility-Administered Medications Medication Dose Route Frequency Provider Last Rate Last Admin ??? *Hold/Avoid Medication Other 0800 and 1999 Gladys Mcgee MD ??? 0.9% NaCl injection 3 mL 3 mL Intracatheter q8h Gladys Mcgee MD And ??? 0.9% NaCl injection 1-10 mL 1-10 mL Intracatheter PRN Gladys Mcgee MD ??? DOPamine 1600 mcg/mL infusion ADS Med ??? fentaNYL (PF) (Sublimaze) injection 100 mcg 100 mcg Intravenous Once Gladys Mcgee MD ??? fentaNYL (Sublimaze) bolus from infusion bag 50 mcg 50 mcg Intravenous BOLUS FROM BAG PRN Gladsy Mcgee MD ??? fentaNYL 2500 mcg/50mL infusion 0-200 mcg/hr Intravenous Continuous Gladys Mcgee MD 2 mL/hrat 01/23/24 1213 100 mcg/hr at 01/23/24 1213 ??? iopamidol (Isovue 370) 76 % contrast Intravenous Contrast - Once Gladys Mcgee MD 80 mL at 01/23/24 1058 ??? midazolam (Versed) 100 mg in 100 mL infusion premix 0-10 mg/hr Intravenous Continuous Gladys Mcgee MD 4 mL/hr at 01/23/24 1218 4 mg/hr at 01/23/24 1218 ??? midazolam (Versed) bolus from infusion bag 2 mg 2 mg Intravenous BOLUS FROM BAG PRN Gladys Mcgee MD ??? midazolam (Versed) injection 5 mg 5 mg Intravenous Once PRN Gladys Mcgee MD Current Outpatient Medications Medication Sig Dispense Refill ??? atorvastatin (LIPITOR) 80 MG tablet Take 1 (one) tablet by mouth at bedtime 90 tablet 1 ??? Blood Glucose Monitoring Suppl (ONE TOUCH ULTRA MINI) W/DEVICE KIT Check blood sugars twice daily 1 kit 0 ??? blood glucose test strip Use 1 strip 2 times daily 100 strip 11 ??? CPAP Use as directed ??? losartan (Cozaar) 50 MG tablet Take 1 (one) tablet by mouth once daily 60 tablet 0 ??? metFORMIN (Glucophage) 500 MG tablet Take 2 (two) tablets by mouth 2 times daily with morning and evening meal ??? metFORMIN (Glucophage) 500 MG tablet Take 1 (one) tablet by mouth once daily for 14 days, THEN 1 (one) tablet 2 times daily with morning and evening meal for 45 days. 104 tablet 0 ??? One Touch Delica Lancets Use 2 times daily Check blood sugars twice daily. 100 Each 11 ??? sildenafil (Revatio) 20 MG tablet Take 2 (two) tablets to 5 (five) tablets by mouth once daily as needed This medicine cannot be combined with nitroglycerin. 30 tablet 0 Allergies Allergen Reactions ??? Lisinopril Angioedema ??? Pcn [Penicillins] Swelling eyes swelled shut 50 years ago ??? Penicillin V Rash FMH Family History Problem Relation Name Age of Onset ? ? Hypertension Father <65 ? ? CAD (Coronary Artery Disease) Father <65 ??? Cancer - Ovarian Mother 60s ??? None Known Sister ??? Diabetes - Type 2 Sister SOCIAL Social History Tobacco Use ??? Smoking status: Some Days Types: Cigars Start date: 1997 ??? Smokeless tobacco: Never ??? Tobacco comments: 3-4 times / month-2020 says 1x/month Substance Use Topics ??? Alcohol use: Yes Alcohol/week: 10.0 standard drinks of alcohol Types: 10 Standard drinks or equivalent per week Comment: 0-50+ a week Review of Systems (positives in bold) Unable to obtain due to patient's condition EXAMINATION Vitals: 01/23/24 1156 01/23/24 1159 01/23/24 1239 01/23/24 1244 BP: (!) 170/112 (!) 203/108 (!) 188/108 Pulse: (!) 114 (!) 113 96 96 Resp: 18 19 Temp: SpO2: 97% 98% 98% 100% Weight: Height: General appearance: Eyes: Left pupil is 5 mm and R pupil is 3mm both reactive, EOMI HENT: neck supple, atraumatic Heart: regular rhythm, no murmurs. Lungs: cta b/l Abdomen: soft without mass, non-tender, with normal bowel sounds Extremities: no clubbing, cyanosis or edema Neurological examination Cortical Function: Mental Status: Drowsy and difficulty with wakefulness. Followed simple commands Unable to test orientation Language: Speech unintelligible severe dysarthria VF No clear visualization Neglect No visual neglect, No tactile neglect Cranial Nerves: Pupils 3 mm on the R and 5 mm and sluggish on the L, Full EOM, No ptosis or nystagmus Facial sensation intact bilaterally to LT; No facial asymmetry noted Hearing intact to finger rub bilaterally Palate elevation is symmetric; Normal tongue protrusion Motor: able to lift against gravity in b/l UE. 2/5 in b/l LE. Tone normal throughout. Coordination: b/l UE dysmetria Sensory: withdraws from noxious stimuli in both UE, no withdrawal in b/l LE. No extinction to double simultaneous stimulation. Gait/Station: Deferred due to patient condition NIH Total: 13 (01/23/2024 10:48 AM) Assessment Interval: Baseline (01/23/2024 10:48 AM) Level of Consciousness: 1 (01/23/2024 10:48 AM) LOC: Questions (Month and Age): 1 (01/23/2024 10:48 AM) LOC: Commands (opens/closes, eyes/fists): 0 (01/23/2024 10:48 AM) Best Gaze: 2 (01/23/2024 10:48 AM) Visual: 2 (01/23/2024 10:48 AM) Facial Palsy: 0 (01/23/2024 10:48 AM) Motor Arm Function - Right: 0 (01/23/2024 10:48 AM) Motor Arm Function - Left: 0 (01/23/2024 10:48 AM) Motor Leg - Right: 3 (01/23/2024 10:48 AM) Motor Leg - Left: 3 (01/23/2024 10:48 AM) Limb Ataxia: 0 (01/23/2024 10:48 AM) Sensory: 0 (01/23/2024 10:48 AM) Best Language: 0 (01/23/2024 10:48 AM) Dysarthria: 1 (01/23/2024 10:48 AM) Extinction and Inattention: 0 (01/23/2024 10:48 AM) LABS Recent Labs Component Name 01/23/24 1045 01/23/24 1039 SODIUM - 142 POTASSIUM - 3.6 CHLORIDE - 101 CO2 - 24 BUN - 10 CREATININE - 0.97 GLUCOSE - 168* CALCIUM - 9.0 ALBUMIN - 3.3* ALKPHOS - 74 ALT - 10 AST - 27 TBIL - 0.6 TPROT - 9.0* EGFR 84* 87* Recent Labs Component Name 01/23/24 1039 07/27/22 0244 07/26/22 1653 WBC 22.5* 10.2 9.7 HGB 14.5 12.2 12.2 HCT 43.3 38.4 36.7 PLTCOUNT 351 254 254 Recent Labs Component Name 01/23/24 1039 07/26/22 1653 01/25/18 0026 PT 13.3 14.1 14.2 Recent Labs Component Name 01/23/24 1039 01/24/18 1540 01/24/18 1345 PTT 28.3 35.7 >212.0* Recent Labs Component Name 07/23/20 0649 01/20/19 1134 03/13/18 1337 CHOL 254* 258* 247* TRIG 179* 63 79 HDL 48 63 80 LDLCALC 173* 179* 149* Recent Labs Component Name 09/17/23 1330 10/18/22 1045 08/03/22 1545 HGBA1C 6.5 5.9 7.2 Initial documented NIHSS Score: NIH Total: 13 (01/23/24 1048) Last Documented NIHSS Score: NIH Total: 13 (01/23/24 104) Nursing Swallow Screener: Total Score of questionnaire (6 or greater did not advance to the water test): XR CHEST 1VW PORTABLE Result Date: 01/23/2024 Impression: 1. ET tube terminates 4.2 cm above the johan. 2. Stable mild cardiomegaly. No terrance congestive failure. > Interpreting Provider: Alexei Cruz DO on 01/23/2024 12:00 PM XR CHEST 1VW PORTABLE Result Date: 01/23/2024 IMPRESSION: No acute disease. > Interpreting Provider: Av Blackwood MD on 01/23/2024 11:[address] ANGIO BRAIN NECK STROKE Result Date: 01/23/2024 IMPRESSION: Short segment severe, string-like stenosis of the lower basilar artery just above the vertebral confluence. > Interpreting Provider: Av Blackwood MD on 01/23/2024 11:[address] BRAIN - Stroke Result Date: 01/23/2024 IMPRESSION: 1. No acute intracranial hemorrhage. 2. Involutional changes with chronic lacunar infarctions and ischemic microangiopathy. 3. Age indeterminate infarction left thalamus and less likely asequela of trans-synaptic degeneration. MRI brain if there is concern for acute ischemia. > Interpreting Provider: Alexei Cruz DO on 01/23/2024 10:57 AM Peripheral IV Left Antecubital (Active) Placement Date/Time: 01/23/24 1055 Size (Gauge): 18 G Orientation: Left Location: Antecubital Site Prep: Chlorhexidine Technique: Anatomical Landmarks Insertion attempts (FOR ED ONLY): 1 Number of days: 0 Peripheral IV Left Antecubital (Active) Placement Date/Time: 01/23/24 1136 Orientation: Left Location: Antecubital Site Prep: ChlorhexidineTechnique: Anatomical Landmarks Insertion attempts (FOR ED ONLY): 1 Number of days: 0 Peripheral IV Anterior;Left Hand (Active) Placement Date/Time: 01/23/24 1136 Size (Gauge): 20 G Orientation: Anterior;Left Location: Hand Technique: Anatomical Landmarks Insertion attempts (FOR ED ONLY): 1 Number of days: 0 Enteral - Nasal/Oral Mouth (Oral) (Active) Placement Date/Time: 01/23/24 1145 Placed by: ZACHARY Kapoor Tube Location: Mouth (Oral) Internal Length (cm): 70 Size (FR): 18 Procedure Tolerance: Well Number of days: 0 ETT Endotracheal Tube Cuffed-inflated 8 MM (Active) Placement Date/Time: 01/23/24 1145 Person who placed: Dr. Mcgee Device: Endotracheal Tube Location: Oral Tube Type: Cuffed-inflated Tube size (MM): 8 MM Depth of insertion: 27 CM Measured from: lipsNumber of insertion attempts: 1 Cuff infl... Number of days: 0 Indwelling Transurethral Urinary Catheter (Active) Placement Date/Time: 01/23/24 1137 Placed by: ZACHARY Gunter Size (FR): 18 Urinary Catheter Type: Double-lumen / 2-Way;Temperature probe Catheter Balloon Size: 10 mL Number of attempts: 1 Number of days: 0 IMPRESSION Acute ischemic stroke: Posterior circulation syndrome Critical Basilar stenosis/thrombosis Acute resp failure s/p intubation and mechanical ventilation Poorly controlled DM HTN Alcohol use disorder Leucocytosis: r/o infectious/stress induced/r/o Asp PNA PLAN ?? The patient did not receive iv thrombolytics because Last Known Well > 4.5 Hours or Unknown. ?? ICU admission ?? MRI done to visualized ischemia ?? To IVR for exploration and potential intervention ?? Check 2D echo to look for possible cardiac source of embolism. ?? Check LDL. Goal <70 ?? CBC, CMP, Mg, K, Phos, Kesha. UA, UDS, CK ?? Swallow assessment before any oral intake, otherwise, remain NPO until passed swallow ?? Telemetry monitoring ?? Insulin sliding scale for Diabetic patient ?? DVT prophylaxis with SCD's ?? PT/OT/ST evaluations. Depending on the recommendations, the patient may be a candidate for inpatient rehabilitation. ?? ASA for secondary stroke prevention. ?? Medical management per ICU ?? Allow permissive hypertension: Due to medical issues in the assessment and plan, continued hospitalization will be required. Prognosis is guarded Patient Diagnoses Present at the Time of Admission Sepsis Other condition: Stroke Basilar artery stenosis/thrombosis Unresponsiveness Sepsis Labs and Vital Signs Lowest HCO3 in past 24 hours: 25.9 Lowest CO2 in past 24 hours: 24 Maximum temperature in past 24 hours: 99.3 Maximum heart rate in past 24 hours: 127 Maximum respiratory rate in past 24 hours: 30 Lowest systolic blood pressure in past 24 hours: 170 Most recent systolic blood pressure: 188 Sherie Beltre MD Interventional Vascular Neurology [facility] [place] documented in this encounter Procedure Notes * Chuy Siegel DO - 02/10/2024 11:21 AM CDT [facility] Procedure Note: Tracheostomy exchange with tracheal bronchoscopy Trach exchange. CXR reviewed, would benefit from longer trach based on positioning. Patient placed in appropriate position on 100 percent FiO2. He was given 1 mg of Versed and 25 mcg of fentanyl IV With RT assistance, then disconnected from tracheostomy and exchange bougie advanced with no resistance. Cuff deflated and trach removed. New bivona XLT air cuff advanced over bougie and bougie removed. Vent reconnected with good tidal volumes and end tidal CO2 of 39. Tracheobronchoscopy confirmed trach well positioned 2.5 cm above johan. CXR ordered. 02/10/24 11:21 AM Chuy Siegel DO * Chuy Siegel DO - 02/05/2024 8:51 AM CDTProcedure(s): HC TRACHEOSTOMY PLANNED Percutaneous Tracheostomy Physician: Chuy Siegel D.O. Preoperative Diagnosis: Pneumonia and CVA Postoperative Diagnosis: Same Sedation: midazolam, fentanyl and propofol, and neuromuscular relaxation with rocuronium 100 mg Procedure: PROCEDURE IN DETAIL: Informed consent was obtained for the procedure, including sedation and neuromuscular relaxation. Risk of lung injury/collapse, tracheal injury, tracheal stenosis, hemorrhage, infection, cardiac arrhythmia, , and adverse drug reaction were discussed. Time out process performed, verified patient identification, verified procedure, verified site and side, verified correct patient position, specialized equipment/implants available. The patient was prepped in the usual fashion under sterile conditions including hand hygiene prior to donning gloves, gown, mask, and sterile drape. The skin above the planned insertion site was prepped with chlorhexidine. Mechanical ventilatory support with volume control ventilation, supplied at adequate fixed minute ventilation with 100% FiO2. The patient maintained arterial saturations greater than 90% during the procedure. Following the administration of sedation and neuromuscular relaxation, a towel roll was placed posteriorly between the patient's scapulae to afford adequate neck extension. The anterior aspect of the neck was palpated, and the cricoid cartilage was identified. Subsequently, the anterior aspect of the neck was cleansed with chlorhexidine and allowed to dry, and sterile drape was placed. Under sterile conditions, the patient's skin inferior to the cricoid cartilageand above the suprasternal notch was infiltrated with 1% lidocaine. A guiding needle with catheter was used to enter the anterior aspect of the trachea, distal to the cricoid cartilage. Bronchoscopy confirmed that the needle was in the trachea midline. Needle removed, and under bronchoscopic guidance, a guidewire was passed through the catheter without resistance and the catheter was then removed. Initial blue obturator was passed over the guidewire without difficulty. Guiding catheter and tapered blue catheter were advanced over the guidewire into the airway with minimal resistance with appropriate skin marking. A 8.0 Bivona TTS tracheostomy tube with an intact cuff was advanced over the guidewire and guiding catheter with a 8.5 mm obturator into the airway. The guidewire, the guiding catheter, and obturatorwere removed. The bronchoscope was then inserted through the newly placed tracheostomy tube to confirm the airway placement. Subsequently the balloon was inflated and the mechanical ventilation was switched from endotracheal tube to the tracheostomy tube. Upon attempted inspection through the endotracheal tube, it was noted the ETT had slipped out abovethe cords into the pharynx. ETT removed and bronchosopy was attempted. Upon visualization, the vocal cords were edematous with notable arytenoid swelling. Blood and copious oral secretions were suctioned. The tracheostomy tube was then secured in position with tracheal ties. The approximate position of the tracheostomy tube from the johan was 4 cm. Complications: As above.patient tolerated the procedure well otherwise Condition: stable. Recommendations: CXR ordered to verify placement. Chuy Siegel D.O. 02/05/2024 * Andrea Zamorano MD - 02/05/2024 8:49 AM CDTProcedure(s): PROC BRONCHOSCOPY Bronchoscopy for Percutaneous Tracheostomy Procedure Note Pre-op Diagnosis: Hypoxemic Respiratory Failure. Physician: Andrea Zamorano MD Assistants: ICU Staff Sedation/Analgesia: midazolam, fentanyl and propofol, neuromuscular relaxation rocuronium Procedure Details Informed consent was obtained for the procedure, including possible sedation. Risks of hypoxemia, lung injury/perforation, hemorrhage, infection, arrhythmia, and adverse drug reaction were discussed. Time-Out Process performed, verified patient identification, verified procedure, verified correct patient position, special equipment available. Prior to the administration of sedation and and neuromuscular relaxation, adequate oxygenation and ventilation was assured by adjusting mechanical ventilator to 1.0 merritt of oxygen and matchingthe patients minute ventilation. The bronchoscope was advanced through the bronch adapter and the ET tube into the trachea. Distance measured from the johan is 5cm. Endotracheal Tube: patent, clear of secretions Trachea: appeared normal Right and Left Mainstem: appeared normal Airway inspection performed to the level of the subsegments bilaterally. There was moderate amount of clear secretions primarily in the RLL subsegments. These were suctioned. ETT withdrawn to above the level of the 1st tracheal ring.. Monitored advancement of introducer needle. Guidewire advanced and verified within the airway belowthe 1st tracheal ring. Blue obturator inserted and site dilated. Large dilator advanced to skin marking and removed. Trach inserted and cuff inflated. Verified position and ends 5 cm above the johan. Assessed posterior tracheal wall and trach cuff. Complications: None; patient tolerated the procedure well. Condition: stable. Andrea Zamorano MD 02/05/24 * Kel Jacome MD - 02/02/2024 3:07 PM CDTProcedure(s): UT INSERT EMERGENCY ENDOTRACH AIRWAY Pre-Procedure Diagnose(s): Acute hypoxemic respiratory failure (HCC) Post-Procedure Diagnose(s): Acute hypoxemic respiratory failure (HCC) Endotracheal Intubation Procedure Note Indications: respiratory failure Anesthesia IV: etomidate 20 mg Lidocaine: no Paralytic: rocuronium 50 mg Equipment: glidescope 4 Consent Consent was not obtained due to the patient's condition and urgency of the situation. Technique Under direct visualization the endotracheal tube was successfully placed through the vocal cords onthe first attempt and secured at 24 cm. ETT location confirmed by auscultation and CO2 detector. Comments CXR ordered Kel Jacome MD 02/02/2024 3:08 PM * Luis A Marie MD - 01/28/2024 4:09 PM CDT LONG-TERM VIDEO EEG [facility] Long-term video EEG monitoring was performed on a patient with seizure. ?? Utilizing the [email or web address] recording system, EEG was recorded in standard multichannel format, and synchronized with currently recorded EKG and video by cable telemetry. Electrode placement was as per the 10/20 system of electrode placement. The record was reviewed in its entirety, utilizing both bipolar and referential montages, as appropriate. Appropriate provocations were made. The quality of the recording is good. ?? A total of over 20 hours was reviewed beginning at 1359 on January 27, 2024. The background consists of up to 10 hertz activity with a posterior dominant rhythm. The record is continuous and symmetric with good variability and reactivity. No epileptiform discharges are seen interictally. No other focal or lateralizing abnormalities are noted. Up to stage 3 sleep is noted. Sleep architecture is within normal limits. No events are noted during this period of monitoring. Automatic spike and seizure detection are unremarkable. Impression: Normal video EEG monitoring record. ?? * Luis A Montoya MD - 01/23/2024 11:44 PM CDT Arterial line insertion procedure note Procedure: Insertion of arterial line Line History: No previous line Indications: tight blood pressure monitoring Catheter: single lumen Anesthesia IV: patient already on IV sedation protocol which was continued during the procedure Local: lidocaine 1% 2ml Site: left Radial artery Consent Informed consent was not obtained for the procedure due to emergent nature. Time out was performed for patient safety. Prep Under sterile conditions the site was prepped with chlorhexidine and full barrier precautions were employed. Technique The vessel was identified by anatomic landmarks and ultrasound. The artery was accessed with a needle and guidewire was advanced. US used to verify location within the artery. The catheter was placedpercutaneously using the modified Seldinger technique. The catheter was sutured into place and a dressing was applied. Waveform was confirmed on the monitor. Comments: placement successful on the first attempt Complications: None 11:44 PM 01/23/24 Luis A Montoya MD * Luis A Montoya MD - 01/23/2024 11:43 PM CDT Images from the original note were not included. Central line Insertion Procedure Note Procedure: Insertion of central venous catheter Line History: No previous line Indications: vasoactive medications Catheter: triple lumen Anesthesia IV: patient already on IV sedation protocol which was continued during the procedure Local: lidocaine 1% 4ml Site: left Subclavian vein Consent Informed consent was not obtained for the procedure due to emergent nature. Time out was performed for patient safety. Prep Under sterile conditions the site was prepped with chlorhexidine and full barrier precautions were employed. Technique The vessel was identified by anatomic landmarks and ultrasound. The vein was accessed with a needleand angiocath. Angiogcath advanced over wire and manometry used to ensure venous placement. The guidewire was advanced through the angiocath. US used to verify wire location within the vein. Angiocath removed and dilator passed over guidewire; insertion site dilated. Dilator removed and the catheter was placed percutaneously using the modified Seldinger technique. The catheter was sutured into place at 20 cm and a dressing was applied. All ports of the catheter were flushed with normal saline. Comments: placement successful on the first attempt, CXR reviewed, catheter position: CXR reviewed and catheter tip in position at SVC. Complications: bleeding from insertion site due to aggrestat infusion 11:44 PM 01/23/24 Luis A Montoya MD * Sherie Beltre MD - 01/23/2024 4:37 PM CDTAssociated Order(s): IR CAROTID CEREBRAL ANGIOGRAM NEUROINTERVENTIONAL PROCEDURE REPORT Procedure: Basilar artery angioplasty Comparison Study: CTA head/neck High-Risk Criteria and Pre-op Imaging: The patient is a 63year old year old male who presents with recurrent ischemic strokes in the posterior circulation due to severe stenosis in the proximal basilar artery. Operators: Sherie Beltre MD PROCEDURES: 1. Angiogram of cervical and cerebral right vertebral artery 2. Angioplasty with [place] 2.5 mm X 15 mm balloon 4. [...] subclavian artery followed by the left vertebral arteryand a cerebral angiogram was obtained. The catheter was then used to select the right common carotid artery and a cerebral angiogram was obtained. Neurointerventional operative details: The diagnostic catheter was exchanged for a [employer] shuttle which was positioned at the right subclavian artery and a murtaza wire was used to hold it in place, Through this a 6F Angie catheter was inserted and positioned in the distal cervical vertebral artery using exchange length glide wire. A cervical and cerebral angiogram were obtained. Runs performed demonstrated the previously described critical stenosis of the proximal basilar artery . Working projections were straight AP and Lateral. An exchange length Synchro microwire was advanced and used to cross the lesion. A 2.5 x15 mm [place] angioplasty balloon was advanced over the exchange wire and positioned bridging the stenosis. The balloon was inflated to nominal pressure (6atm over 1.5 minutes) and angioplasty was performed. The balloon was pulled back and follow up control runs demonstrated a residual 40% stenosis. The balloon was removed. Attempt to cross the lesion with a wingspan was not possible. Once the right vertebral artery dissection was noted, the procedure was discontinued. Left vertebral angiogram revealed filling of the basilar artery from the left side as well. No distal emboli or filling defects were noted. The guiding catheter was removed. A run performed from the ADMISSIONS DEAN demostrated a normal femoral artery bifurcation. The sheath was exchanged for the angioseal 8F device. The device was deployed and hemostasis was achieved. The right dorsalis pedis pulse was palpable at the end of the closure procedure. The patient tolerated the procedure without immediate complications. he was returned to the recovery area in hemodynamically stable condition and neurologically unchanged. Estimated blood loss: negligible; Fluoroscopic Time: 52.4 minutes; Contrast Utilized: 100cc Findings: There was good arterial, capillary, and venous opacification on all angiographic runs. The right common carotid artery angiogram demonstrated a normal course and caliber of the intracranial ICA with normal course and caliber of the MCA and VAISHNAVI with large PCOM filling the BEACH ATTENDANT. The left vertebral artery angiogram shows a smaller caliber vessel with filling of the basilar artery and cerebellar vessels with severe stenosis of the proximal basilar artery of about 80%. The right artery angiogram reveals normal V1,2 and 3 segments. There is evidence of severe stenosisin the proximal basilar artery measuring 80%. After angioplasty is complete, the stenosis dropped to about 50 % but there was dissection noted in the R distal vertebral artery from manipulation of the vessel. The femoral artery angiogram shows a puncture site above the femoral bifurcation. Impression: A severe stenosis in the proximal basilar artery, s/p successful balloon angioplasty. Residual stenosis about 50% in lateral view. Plan: - Close monitoring in ICU. - Continue tirofiban gtt x 24hrs. Then will obtain CT head prior to starting DAPT - Keep SBP 160-200. Sherie Beltre MD Interventional Vascular Neurology 01/23/2024 documented in this encounter Consult Notes * Luis A Jean - 02/11/2024 6:17 PM CDTAssociated Order(s): IP CONSULT TO PASTORAL CARE In consultation with ICU medical staff, it was determined pt unable to complete Advanced Dir at this time. Pastoral care, including prayer, was provided as well. * Annamarie Bonilla RN - 01/31/2024 12:56 PM CDTAssociated Order(s): IP CONSULT TO CASE MANAGEMENT Consult received. SDOH completed on 01/23 stroke assessment completed 01/29 * Annamarie Bonilla RN - 01/30/2024 11:24 AM CDTAssociated Order(s): IP CONSULT TO CASE MANAGEMENT Noted * Jeff Ruffin MD - 01/29/2024 5:27 PM CDTAssociated Order(s): IP CONSULT TO GASTROENTEROLOGY GI Consultation Patient's Primary Care Physician: Sylvain Daniels MD Name: Raza Vazquez Age: [age] year old Sex: male Reason for Consult: Peg placement HPI: A 63 year old male was admitted with PMH of DM, HTN, alcohol abuse??who presented on 01/23/2024 10:27 AM??with chief complaint of unresponsiveness.??He was found down at his home by the recharger person he had scheduled to visit his home today. . Suspicion of posterior circulation stroke was entertained. MRI brain stat was quickly obtained showing multiple infarcts in the brainstem including the left midbrain and left thalamus and right periventricular region. 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 Decision to take to IVR for exploration and potential management. Extubated 01/24. Reported seizure activity on 01/26, started on Keppra. No further seizure since. I am asked to see him for PEG placement no history of gastric surgery. No recent imaging of the abdomen. Past Medical History: Diagnosis Date ??? Anemia 01/2018 ??? Asthma (HCC) ??? Chest congestion 08/05/2020 ??? Confusional arousals 08/05/2020 ??? Controlled type 2 diabetes mellitus without complication, without long-term current use of insulin (HCC) 09/28/2011 ??? 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 Cough syncope 2017 ??? Daytime sleepiness 08/05/2020 ??? Essential hypertension 01/23/2018 ??? Hyperlipidemia 08/05/2020 ??? Inadequate sleep hygiene 08/05/2020 ??? Morbid obesity with BMI of 40.0-44.9, adult (HCC) 08/05/2020 ??? Nocturia 08/05/2020 ??? Obesity (BMI 30-39.9) 04/24/2012 ??? Other chest pain 09/04/2018 ??? S/P CABG x 3 01/24/2018 ??? Snoring 08/05/2020 ??? Superficial postoperative wound infection 02/23/2018 sternum ??? Wears glasses 08/05/2020 ??? Weight gain 08/05/2020 40# past 6-8 months-covid ??? Wound of sternal region 02/23/2018 Past Surgical History: Procedure Laterality Date ??? COLONOSCOPY N/A 11/12/2020 N/A; COLONOSCOPY SCREEN ??? Coronary Artery Bypass Graft N/A 01/24/2018 N/A; Coronary artery bypass graft x 3 ??? Tonsillectomy Data Recent Labs Component Name 01/29/24 02501/28/24 03401/27/24 0537 WBC 10.5 8.5 8.2 HGB 12.6* 11.8* 11.4* HCT 40.0 37.2* 35.5* PLTCOUNT 319 293 284 Recent Labs Component Name 01/29/24 02501/28/24 0341 01/27/24 0537 SODIUM 140 139 138 POTASSIUM 4.1 4.0 3.6 CHLORIDE 100 102 102 CO2 27 26 25 BUN 15 15 12 CREATININE 0.74 0.75 0.76 GLUCOSE 135* 126* 97 CALCIUM 9.3 9.3 9.4 Recent Labs Component Name 01/29/24 025 SODIUM 140 POTASSIUM 4.1 CHLORIDE 100 CO2 27 BUN 15 CREATININE 0.74 GLUCOSE 135* CALCIUM 9.3 ALBUMIN 2.7* ALKPHOS 90 ALT 10 AST 14 TBIL 0.2 TPROT 8.2 EGFR >90 Recent Labs Component Name 01/29/24 0259 01/28/24 03401/27/24 0537 ALBUMIN 2.7* 2.6* 2.5* ALKPHOS 90 90 90 ALT 10 12 16 AST 14 17 23 TBIL 0.2 0.3 0.4 TPROT 8.2 7.8 7.5 No results for input(s): AMYLASE in the last 80858 hours. No results for input(s): LIPASE in the last 22428 hours. Recent Labs Component Name 01/23/24 1045 01/23/24 1039 07/26/22 1653 INR 1.1 1.0 1.1 Recent Labs Component Name 01/23/24 1039 01/24/18 1540 01/24/18 1345 PTT 28.3 35.7 >212.0* Medications Prior to Admission Medication Sig Dispense Refill ??? atorvastatin (LIPITOR) 80 MG tablet Take 1 (one) tablet by mouth at bedtime 90 tablet 1 ??? Blood Glucose Monitoring Suppl (ONE TOUCH ULTRA MINI) W/DEVICE KIT Check blood sugars twice daily 1 kit 0 ??? blood glucose test strip Use 1 strip 2 times daily 100 strip 11 ??? CPAP Use as directed ??? losartan (Cozaar) 50 MG tablet Take 1 (one) tablet by mouth once daily 60 tablet 0 ??? metFORMIN (Glucophage) 500 MG tablet Take 2 (two) tablets by mouth 2 times daily with morning and evening meal ??? metFORMIN (Glucophage) 500 MG tablet Take 1 (one) tablet by mouth once daily for 14 days, THEN 1 (one) tablet 2 times daily with morning and evening meal for 45 days. 104 tablet 0 ??? One Touch Delica Lancets Use 2 times daily Check blood sugars twice daily. 100 Each 11 ??? sildenafil (Revatio) 20 MG tablet Take 2 (two) tablets to 5 (five) tablets by mouth once daily as needed This medicine cannot be combined with nitroglycerin. 30 tablet 0 MEDICATIONS FOR CURRENT ENCOUNTER: ?? SCHEDULED MEDICATIONS: ?? 0.9% NaCl injection 3 mL, Intracatheter, q8h ?? albuterol-ipratropium (Duo-Neb) nebulizer solution 3 mL, Inhalation, q6h ?? amLODIPine (Norvasc) tablet 10 mg, Enteral Tube, QDAY ?? aspirin chew tablet 81 mg, Enteral Tube, QDAY ?? atorvastatin (Lipitor) tablet 80 mg, Enteral Tube, AT BEDTIME ?? bisacodyl (Dulcolax) suppository 10 mg, Rectal, QDAY ?? heparin injection 5,000 Units, Subcutaneous, BID ?? insulin aspart (NovoLOG) pen 0-18 Units, Subcutaneous, q6h ?? levETIRAcetam (Keppra) tablet 500 mg, Enteral Tube, BID ?? losartan (Cozaar) tablet 50 mg, Enteral Tube, AT BEDTIME ?? modafinil (Provigil) tablet 200 mg, Enteral Tube, QAM ?? senna-docusate (Senokot-S) tablet 2 tablet, Enteral Tube, BID ?? [START ON 01/30/2024] *Hold/Avoid Medication, Other, 0800 and 2000 ?? CONTINUOUS MEDICATIONS: ?? niCARdipine (Cardene) 50 mg in 0.9% NaCl IV 100 mL infusion, Intravenous, Continuous Family History Problem Relation Name Age of Onset ? ? Hypertension Father <65 ? ? CAD (Coronary Artery Disease) Father <65 ??? Cancer - Ovarian Mother 60s ??? None Known Sister ??? Diabetes - Type 2 Sister Social History Socioeconomic History ??? Marital status: Legally Spouse name: Not on file ??? Number of children: 1 ??? Years of education: 16 ??? Highest education level: Bachelor's degree (e.g., BA, AB, BS) Occupational History ??? 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 Smoking status: Some Days Types: Cigars Start date: 1997 ??? Smokeless tobacco: Never ??? Tobacco comments: 3-4 times / month-2020 says 1x/month Vaping Use ??? Vaping Use: Never used Substance and Sexual Activity ??? Alcohol use: Yes Alcohol/week: 10.0 standard drinks of alcohol Types: 10 Standard drinks or equivalent per week Comment: 0-50+ a week ??? Drug use: Yes Types: Marijuana ??? Sexual activity: Not Currently Other Topics Concern ??? Not on file Social History Narrative Lives in apartment alone Pets none Hobby watch tv, golf Social Determinants of Health Financial Resource Strain: Low Risk (01/24/2024) Overall Financial Resource Strain (CARDIA) ??? Difficulty of Paying Living Expenses: Not hard at all Food Insecurity: No Food Insecurity (01/24/2024) Hunger Vital Sign ??? Worried About Running Out of Food in the Last Year: Never true ??? Ran Out of Food in the Last Year: Never true Transportation Needs: No Transportation Needs (01/24/2024) PRAPARE - Transportation ??? Lack of Transportation (Medical): No ??? Lack of Transportation (Non-Medical): No Stress: Not on file Housing Stability: Unknown (01/24/2024) Housing Stability Vital Sign ??? Unable to Pay for Housing in the Last Year: No ??? Number of Places Lived in the Last Year: Not on file ??? Unstable Housing in the Last Year: No Allergies Allergen Reactions ??? Lisinopril Angioedema ??? Pcn [Penicillins] Swelling eyes swelled shut 50 years ago ??? Penicillin V Rash Review of Systems Not able to provide Exam Vitals: 01/29/24 0900 01/29/24 1000 01/29/24 1200 01/29/24 1517 BP: 161/81 128/77 Pulse: 97 93 91 Resp: 23 25 (!) 35 Temp: 97.9 ??F (36.6 ??C) 99.9 ??F (37.7 ??C) SpO2: 95% 96% 93% Weight: Height: Objective General appearance: alert, cooperative, no distress Eyes: PEERLA, no icterus HEENT: oral mucosa is moist. 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 Discussed with Dr. Kerr He does not want to wait till Sunday or hold Plavix So will attempt PEG in a.m. Family aware of risk of bleeding while on Plavix History of alcohol abuse. Continue thiamine Diabetes, dyslipidemia hypertension Continue Norvasc, Cozaar atorvastatin Seizures Continue Keppra Over 55 minutes of face to face time and non face to face time were spent in the management and evaluation of this patient Thank you for the consult. Will follow. Jeff Ruffin MD [facility] [phone] * Sabiha Cole PTA - 01/24/2024 7:33 AM CDTAssociated Order(s): IP CONSULT TO PHYSICAL MED AND REHAB [facility] Acute Rehab has received consult via stroke protocol and medical workup in progress. [facility] Rehab will follow for medical stability and therapy evaluations to determine DC needs. Thank you for the referral. Sabiha Cole PTA, MS Clinical Liaison [facility] [phone] * Luis A Montoya MD - 01/23/2024 7:23 PM CDT ICU H&P Patients Name:Raza Vazquez Today's date: 01/23/2024 Date of Service: 01/23/2024 Subjective: Raza Vazquez is a 63 year old M, presenting to the ICU after neurointerventional procedure on basilar artery. Per reports, he was found down around 1030 AM unresponsive with an unknown lastknown well time. STAT MRI showed multiple brainstem infarcts, left midbrain, left thalamus, right pe riventricular region. He was intubated in the ED for airway protection. IVR procedure showed proximal basilar artery stenosis, angioplasty to 50%. Dissection to right distal vertebral artery. Past Medical History: Diagnosis Date ??? Anemia 01/2018 ??? Asthma ([facility]) ??? Chest congestion 08/05/2020 ??? Confusional arousals 08/05/2020 ??? Controlled type 2 diabetes mellitus without complication, without long-term current use of insulin ([facility]) 09/28/2011 ??? 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 Cough syncope 2017 ??? Daytime sleepiness 08/05/2020 ??? Essential hypertension 01/23/2018 ??? Hyperlipidemia 08/05/2020 ??? Inadequate sleep hygiene 08/05/2020 ??? Morbid obesity with BMI of 40.0-44.9, adult ([facility]) 08/05/2020 ??? Nocturia 08/05/2020 ??? Obesity (BMI 30-39.9) 04/24/2012 ??? Other chest pain 09/04/2018 ??? S/P CABG x 3 01/24/2018 ??? Snoring 08/05/2020 ??? Superficial postoperative wound infection 02/23/2018 sternum ??? Wears glasses 08/05/2020 ??? Weight gain 08/05/2020 40# past 6-8 months-covid ??? Wound of sternal region 02/23/2018 Past Surgical History: Procedure Laterality Date ??? COLONOSCOPY N/A 11/12/2020 N/A; COLONOSCOPY SCREEN ??? Coronary Artery Bypass Graft N/A 01/24/2018 N/A; Coronary artery bypass graft x 3 ??? Tonsillectomy Medications Prior to Admission Medication Sig Dispense Refill ??? atorvastatin (LIPITOR) 80 MG tablet Take 1 (one) tablet by mouth at bedtime 90 tablet 1 ??? Blood Glucose Monitoring Suppl (ONE TOUCH ULTRA MINI) W/DEVICE KIT Check blood sugars twice daily 1 kit 0 ??? blood glucose test strip Use 1 strip 2 times daily 100 strip 11 ??? CPAP Use as directed ??? losartan (Cozaar) 50 MG tablet Take 1 (one) tablet by mouth once daily 60 tablet 0 ??? metFORMIN (Glucophage) 500 MG tablet Take 2 (two) tablets by mouth 2 times daily with morning and evening meal ??? metFORMIN (Glucophage) 500 MG tablet Take 1 (one) tablet by mouth once daily for 14 days, THEN 1 (one) tablet 2 times daily with morning and evening meal for 45 days. 104 tablet 0 ??? One Touch Delica Lancets Use 2 times daily Check blood sugars twice daily. 100 Each 11 ??? sildenafil (Revatio) 20 MG tablet Take 2 (two) tablets to 5 (five) tablets by mouth once daily as needed This medicine cannot be combined with nitroglycerin. 30 tablet 0 Allergies Allergen Reactions ??? Lisinopril Angioedema ??? Pcn [Penicillins] Swelling eyes swelled shut 50 years ago ??? Penicillin V Rash Social History Tobacco Use ??? Smoking status: Some Days Types: Cigars Start date: 1997 ??? Smokeless tobacco: Never ??? Tobacco comments: 3-4 times / month-2020 says 1x/month Substance Use Topics ??? Alcohol use: Yes Alcohol/week: 10.0 standard drinks of alcohol Types: 10 Standard drinks or equivalent per week Comment: 0-50+ a week Family History Problem Relation Name Age of Onset ? ? Hypertension Father <65 ? ? CAD (Coronary Artery Disease) Father <65 ??? Cancer - Ovarian Mother 60s ??? None Known Sister ??? Diabetes - Type 2 Sister Review of Systems Unable to assess 2/2 patient condition Objective: Patient Vitals for the past 8 hrs: BP Temp Temp src Pulse Resp SpO2 Height Weight 01/23/24 1710 -- -- -- 84 -- 93 % -- -- 01/23/24 1700 -- 96.9 ??F (36.1 ??C) Axillary -- -- -- 1.93 m (6' 4 ) 136 kg (299 lb 13.2 oz) 01/23/24 1645 162/94 -- -- 89 9 96 % -- -- 01/23/24 1640 157/92 -- -- 91 18 100 % -- -- 01/23/24 1635 (!) 170/106 -- -- 75 13 100 % -- -- 01/23/24 1630 (!) 177/112 -- -- 96 26 99 % -- -- 01/23/24 1625 (!) 152/112 -- -- 83 18 99 % -- -- 01/23/24 1620 169/95 -- -- 73 18 100 % -- -- 01/23/24 1615 (!) 173/100 -- -- 83 16 100 % -- -- 01/23/24 1610 173/99 -- -- 82 18 100 % -- -- 01/23/24 1605 175/96 -- -- 93 18 100 % -- -- 01/23/24 1600 (!) 178/105 -- -- 109 18 100 % -- -- 01/23/24 1555 (!) 176/108 -- -- (!) 111 16 100 % -- -- 01/23/24 1550 167/97 -- -- 91 18 100 % -- -- 01/23/24 1545 154/99 -- -- 93 18 100 % -- -- 01/23/24 1540 167/95 -- -- 94 18 100 % -- -- 01/23/24 1535 162/95 -- -- 95 18 100 % -- -- 01/23/24 1530 160/94 -- -- 100 14 100 % -- -- 01/23/24 1525 159/99 -- -- 104 18 100 % -- -- 01/23/24 1520 (!) 174/102 -- -- (!) 113 18 100 % -- -- 01/23/24 1515 159/95 -- -- 103 16 99 % -- -- 01/23/24 1510 153/94 -- -- 98 18 100 % -- -- 01/23/24 1505 152/94 -- -- 100 18 100 % -- -- 01/23/24 1500 153/91 -- -- 103 18 100 % -- -- 01/23/24 1455 151/96 -- -- 108 18 100 % -- -- 01/23/24 1450 152/90 -- -- 108 18 100 % -- -- 01/23/24 1445 160/92 -- -- 105 16 100 % -- -- 01/23/24 1440 156/96 -- -- 106 18 100 % -- -- 01/23/24 1435 (!) 157/101 -- -- (!) 119 18 100 % -- -- 01/23/24 1430 163/97 -- -- (!) 111 18 100 % -- -- 01/23/24 1425 162/99 -- -- (!) 124 13 100 % -- -- 01/23/24 1420 (!) 171/114 -- -- (!) 121 20 99 % -- -- 01/23/24 1415 (!) 180/115 -- -- (!) 132 16 100 % -- -- 01/23/24 1410 (!) 151/119 -- -- (!) 122 22 100 % -- -- 01/23/24 1405 (!) 164/119 -- -- (!) 128 26 100 % -- -- 01/23/24 1400 (!) 173/108 -- -- (!) 122 24 100 % -- -- 01/23/24 1355 (!) 187/109 -- -- (!) 127 21 100 % -- -- 01/23/24 1350 (!) 178/103 -- -- (!) 128 18 100 % -- -- 01/23/24 1345 (!) 173/101 -- -- (!) 136 18 98 % -- -- 01/23/24 1340 (!) 173/107 -- -- (!) 139 19 92 % -- -- 01/23/24 1335 (!) 190/112 -- -- (!) 138 27 94 % -- -- 01/23/24 1330 (!) 187/111 -- -- (!) 120 19 95 % -- -- 01/23/24 1325 -- -- -- (!) 111 27 98 % -- -- 01/23/24 1244 (!) 188/108 -- -- 96 -- 100 % -- -- 01/23/24 1239 (!) 203/108 -- -- 96 -- 98 % -- -- 01/23/24 1159 -- -- -- (!) 113 19 98 % -- -- 01/23/24 1156 (!) 170/112 -- -- (!) 114 18 97 % -- -- 01/23/24 1154 -- -- -- 105 18 99 % -- -- 01/23/24 1151 (!) 193/123 -- -- 105 18 98 % -- -- 01/23/24 1146 (!) 209/122 -- -- 99 18 100 % -- -- 01/23/24 1143 -- -- -- 104 16 100 % -- -- 01/23/24 1142 -- -- -- (!) 121 29 99 % -- -- 01/23/24 1141 (!) 222/144 -- -- 109 11 98 % -- -- 01/23/24 1140 -- -- -- (!) 119 20 99 % -- -- 01/23/24 1139 -- -- -- (!) 127 12 100 % -- -- 01/23/24 1138 -- -- -- 97 13 99 % -- -- 01/23/24 1137 (!) 222/124 -- -- 82 25 100 % -- -- 01/23/24 1136 -- -- -- 98 30 99 % -- -- 01/23/24 1135 -- -- -- 93 26 100 % -- -- 01/23/24 1131 (!) 204/117 -- -- 89 25 100 % -- -- 01/23/24 1126 (!) 193/129 -- -- 101 23 96 % -- -- Intake/Output Summary (Last 24 hours) at 01/23/2024 1923 Last data filed at 01/23/2024 1700 Gross per 24 hour Intake 424.18 ml Output -- Net 424.18 ml Peripheral IV Left Antecubital (Active) Placement Date/Time: 01/23/24 1055 Size (Gauge): 18 G Orientation: Left Location: Antecubital Site Prep: Chlorhexidine Technique: Anatomical Landmarks Insertion attempts (FOR ED ONLY): 1 Number of days: 0 Peripheral IV Left Antecubital (Active) Placement Date/Time: 01/23/24 1136 Orientation: Left Location: Antecubital Site Prep: ChlorhexidineTechnique: Anatomical Landmarks Insertion attempts (FOR ED ONLY): 1 Number of days: 0 Peripheral IV Anterior;Left Hand (Active) Placement Date/Time: 01/23/24 1136 Size (Gauge): 20 G Orientation: Anterior;Left Location: Hand Technique: Anatomical Landmarks Insertion attempts (FOR ED ONLY): 1 Number of days: 0 Enteral - Nasal/Oral Mouth (Oral) (Active) Placement Date/Time: 01/23/24 1145 Placed by: ZACHARY Kapoor Tube Location: Mouth (Oral) Internal Length (cm): 70 Size (FR): 18 Procedure Tolerance: Well Number of days: 0 ETT Endotracheal Tube Cuffed-inflated 8 MM (Active) Placement Date/Time: 01/23/24 1145 Person who placed: Dr. Mcgee Device: Endotracheal Tube Location: Oral Tube Type: Cuffed-inflated Tube size (MM): 8 MM Depth of insertion: 27 CM Measured from: lipsNumber of insertion attempts: 1 Cuff infl... Number of days: 0 Puncture Site Femoral (Active) Date/Time: 01/23/24 1344 Placed by: Alexsander Orientation: Right Puncture Site Location: Femoral Puncture Type: Arterial Number of days: 0 Indwelling Transurethral Urinary Catheter (Active) Placement Date/Time: 01/23/24 1137 Placed by: ZACHARY Gunter Size (FR): 18 Urinary Catheter Type: Double-lumen / 2-Way;Temperature probe Catheter Balloon Size: 10 mL Number of attempts: 1 Number of days: 0 Physical Exam: General: Well-developed, in NAD. Neuro: On sedation, does not respond to verbal stim, grimaces to peripheral pain, WD bilateral UE, no movement to LE pain, + cough, Left pupil 5mm unreactive, right 3mm reactive HEENT: NC/AT. MMM. Neck: Supple. No tenderness, enlargement, JVD or LAD noted. Lungs: CTAB. No wheezing or crackles heard. No respiratory distress. No spontaneous respiratory efforts Heart: Sinus tachycardia, no edema noted Abdomen: Soft. NT/ND. Ext/MS: No cyanosis, or erythema. No injuries noted Skin: No obvious rashes or lesions noted on exposed skin. Assessment: Tip (No need to delete this box - it will not appear in your note) Review Diagnoses Present on Admission . REFRESH NOTE BEFORE SIGNING! 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 Beltre requests continuing tirofiban - DAPT starting tomorrow 01/23 - SBP goal 160-200 - secondary neuro prevention: avoid fevers, euglycemia, euvolemia, HOB elevation Sedation- propofol, fent RASS goal 0 to -1 Pain management - prn Delirium prophylaxis: Encourage normal sleep-wake cycle: lights on during the day, requent re-orientation, During night time: sleep hygiene, minimize sleep interruptions. Avoid sedating medications like sandra's and antipsychotics, as much as possible. PT/OT with early mobility. Pulmonary: Acute hypoxemic hypercapnic respiratory failure - Wean O2 for sats >92%, goal Vt 6-8cckgIBW, goal plateau pressure < 30, HOB > 30*, oral care, daily sedation holiday, SBT daily as tolerated Cardiovascular: Hypotension - dopamine started in IVR - will transition to NE - CVL and arterial line to be placed Renal: - Monitor I/O, replace electrolytes prn GI/Diet: Early TF protocol - SUP with PPI - BR Endo: Glycemic control DM - POA - SSI Heme: DVT ppx heparin subq ID: No acute infectious process Tubes, lines, drains Peripheral IV Left Antecubital (Active) Placement Date/Time: 01/23/24 1055 Size (Gauge): 18 G Orientation: Left Location: Antecubital Site Prep: Chlorhexidine Technique: Anatomical Landmarks Insertion attempts (FOR ED ONLY): 1 Number of days: 0 Peripheral IV Left Antecubital (Active) Placement Date/Time: 01/23/24 1136 Orientation: Left Location: Antecubital Site Prep: ChlorhexidineTechnique: Anatomical Landmarks Insertion attempts (FOR ED ONLY): 1 Number of days: 0 Peripheral IV Anterior;Left Hand (Active) Placement Date/Time: 01/23/24 1136 Size (Gauge): 20 G Orientation: Anterior;Left Location: Hand Technique: Anatomical Landmarks Insertion attempts (FOR ED ONLY): 1 Number of days: 0 Enteral - Nasal/Oral Mouth (Oral) (Active) Placement Date/Time: 01/23/24 1145 Placed by: ZACHARY Kapoor Tube Location: Mouth (Oral) Internal Length (cm): 70 Size (FR): 18 Procedure Tolerance: Well Number of days: 0 ETT Endotracheal Tube Cuffed-inflated 8 MM (Active) Placement Date/Time: 01/23/24 1145 Person who placed: Dr. Mcgee Device: Endotracheal Tube Location: Oral Tube Type: Cuffed-inflated Tube size (MM): 8 MM Depth of insertion: 27 CM Measured from: lipsNumber of insertion attempts: 1 Cuff infl... Number of days: 0 Puncture Site Femoral (Active) Date/Time: 01/23/24 1344 Placed by: Alexsander Orientation: Right Puncture Site Location: Femoral Puncture Type: Arterial Number of days: 0 Indwelling Transurethral Urinary Catheter (Active) Placement Date/Time: 01/23/24 1137 Placed by: ZACHARY Gunter Size (FR): 18 Urinary Catheter Type: Double-lumen / 2-Way;Temperature probe Catheter Balloon Size: 10 mL Number of attempts: 1 Number of days: 0 Code Status: Full Code Family Updated: Updated by day CCM team and Neuro, will update family for changes I personally spent 60 minutes providing critical care services, time was exclusive to this patient and dose not include time spent on teaching or in procedures. Luis A Montoya MD 01/23/2024 7:23 PM Critical Care Medicine documented in this encounter ED Notes * Juan Pickard RN - 01/23/2024 12:00 PM CDT Pt to MRI with RT and stroke nurse. * Juan Pickard RN - 01/23/2024 11:41 AM CDT Pt intubated by Dr. Mcgee. 8.0 ETT 27 at the lip. * Juan Pickard RN - 01/23/2024 11:[address] Beltre at bedside. * Juan Pickard RN - 01/23/2024 10:49 AM CDT Pt to ED via ems for evaluation of altered mental status. Pt was found unresponsive at home by an recharger. Unknown LKW. Pt has a hx of COPD. Pt was found covered in urine with a nearby handle ofvodka that was empty. Pt was hypoxic for ems so was placed on 2L and a nasal airway was placed. * Gladys Mcgee MD - 01/23/2024 10:32 AM CDTAssociated Order(s): Intubation Post-Procedure Diagnose(s): Hypoxia; Basilar artery thrombosis; Acute hypoxemic respiratory failure(HCC) EMERGENCY DEPARTMENT NOTE 01/23/2024 CC: Altered mental status HPI: Raza Vazquez is a 63 year old male with PMHx of DM, HTN, etoh use and other comorbidities presenting for evaluation of unconsciousness. Unknown LKN. He was found down by exterminators in his house, where he lives alone, earlier today. They called 9--1. According EMS, the patient was unconscious on their arrival. They placed NPA. Patient's mental status has improved en route, buthe remains confused. According to the patient's sister, the patient has not been seen or heard fromin the last 24 hours. Additional history is limited 2/2 patient condition. Chart History: Past Medical History: Diagnosis Date ??? Anemia 01/2018 ??? Asthma ([facility]) ??? Chest congestion 08/05/2020 ??? Confusional arousals 08/05/2020 ??? Controlled type 2 diabetes mellitus without complication, without long-term current use of insulin ([facility]) 09/28/2011 ??? 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 Cough syncope 2017 ??? Daytime sleepiness 08/05/2020 ??? Essential hypertension 01/23/2018 ??? Hyperlipidemia 08/05/2020 ??? Inadequate sleep hygiene 08/05/2020 ??? Morbid obesity with BMI of 40.0-44.9, adult ([facility]) 08/05/2020 ??? Nocturia 08/05/2020 ??? Obesity (BMI 30-39.9) 04/24/2012 ??? Other chest pain 09/04/2018 ??? S/P CABG x 3 01/24/2018 ??? Snoring 08/05/2020 ??? Superficial postoperative wound infection 02/23/2018 sternum ??? Wears glasses 08/05/2020 ??? Weight gain 08/05/2020 40# past 6-8 months-covid ??? Wound of sternal region 02/23/2018 Past Surgical History: Procedure Laterality Date ??? COLONOSCOPY N/A 11/12/2020 N/A; COLONOSCOPY SCREEN ??? Coronary Artery Bypass Graft N/A 01/24/2018 N/A; Coronary artery bypass graft x 3 ??? Tonsillectomy Current Facility-Administered Medications Medication Dose Route Frequency Provider Last Rate Last Admin ??? *Hold/Avoid Medication Other 0800 and 1999 Gladys Mcgee MD ??? 0.9% NaCl injection 3 mL 3 mL Intracatheter q8h Gladys Mcgee MD 3 mL at 01/24/242005 And ??? 0.9% NaCl injection 1-10 mL 1-10 mL Intracatheter PRN Gladys Mcgee MD ??? acetaminophen (Tylenol) tablet 650 mg 650 mg Enteral Tube q4h Luis A Montoya MD 650 mg at 01/24/24 1826 Or ??? acetaminophen (Tylenol) suppository 650 mg 650 mg Rectal q4h Luis A Montoya MD ??? albuterol-ipratropium (Duo-Neb) nebulizer solution 3 mL 3 mL Inhalation q6h Sherie Beltre MD ??? artificial tears ophthalmic ointment Each Eye TID Manisha Terry MD Given at 01/24/242005 ??? [START ON 01/25/2024] aspirin chew tablet 81 mg 81 mg Enteral Tube QDAY Manisha Terry MD ??? atropine 0.1 mg/ml syringe [facility]S Med ??? cefTRIAXone (Rocephin) 2,000 mg in 0.9% NaCl IV 50 mL IVPB 2 g Intravenous q24h Manisha Terry MD Stopped at 01/24/24 1106 ??? chlorhexidine (Peridex) 0.12 % oral solution 15 mL 15 mL Swish and Spit BID Andrea Zamorano MD 15 mL at 01/24/242004 ??? clopidogrel (plaVIX) tablet 75 mg 75 mg Enteral Tube QDAY Sherie Beltre MD 75 mg at 01/24/24 1610 ??? dextrose 10 % IV bolus 12.5 g Intravenous PRN Andrea Zamorano MD Or ??? dextrose 10 % IV bolus 25 g Intravenous PRN Andrea Zamorano MD Or ??? glucagon (Glucagen) injection 1 mg 1 mg Subcutaneous PRN Andrea Zamorano MD ??? DOPamine 1600 mcg/mL infusion [facility] ??? fentaNYL (Sublimaze) bolus from infusion bag 50 mcg 50 mcg Intravenous BOLUS FROM BAG PRN Luis A Montoya MD 50 mcg at 01/24/24 1830 ??? fentaNYL 2500 mcg/50mL infusion 75 mcg/hr Intravenous Continuous Manisha Terry MD 1.5 mL/hr at 01/24/24 1830 75 mcg/hr at 01/24/24 1830 ??? glucose (Diabetic Use) oral gel Oral PRN Andrea Zamorano MD ??? glycopyrrolate (Robinul) injection [facility]S Med ??? [START ON 01/25/2024] heparin injection 5,000 Units 5,000 Units Subcutaneous BID Manisha Terry MD ??? insulin aspart (NovoLOG) pen 0-12 Units 0-12 Units Subcutaneous q4h Andrea Zamorano MD 4 Units at 01/24/242007 ??? lansoprazole (Prevacid) suspension 30 mg 30 mg Enteral Tube QDAY Andrea Zamorano MD 30 mg at 01/24/24 08 ??? nitroGLYCERIN (Nitro-Bid) 2% ointment [facility]S Med ??? nitroGLYCERIN 200 mcg/ml in dextrose 5 % infusion [facility]S [facility] ??? norepinephrine (Levophed) 8 mg/250 ml D5 infusion premix 0-0.4 mcg/kg/min Intravenous Continuous Luis A Montoya MD 12.75 mL/hr at 01/24/24 1830 0.05 mcg/kg/min at 01/24/24 1830 ??? ondansetron (Zofran) injection 4 mg 4 mg Intravenous q4h PRN Manisha Terry MD 4 mg at 01/24/24 1644 ??? prochlorperazine (Compazine) injection 10 mg 10 mg Intravenous q4h PRN Manisha Terry MD 10 mg at 01/24/24 1836 ??? senna-docusate (Senokot-S) tablet 2 tablet 2 tablet Enteral Tube BID Andrea Zamorano MD 2 tabletat 01/24/242004 ??? verapamil (Isoptin) injection [facility]S Med Allergies Allergen Reactions ??? Lisinopril Angioedema ??? Pcn [Penicillins] Swelling eyes swelled shut 50 years ago ??? Penicillin V Rash PCP: Sylvain Daniels MD Vital Signs: BP 162/94 Pulse 49 Temp 100 ??F (37.8 ??C) Resp 18 Ht 1.93 m (6' 4 ) Wt (!) 142.4 kg (314 lb) SpO2 98% Pertinent Physical Exam Findings: Constitutional: Severe distress Eyes: R pupil is small and reactive, L pupil is large and non-reactive with overlying cataract, conjunctiva injected bilaterally HENT: MMM, neck supple without meningismus CV: RRR, 2+ peripheral pulses, no peripheral edema Resp: No respiratory distress on NC, CTAB GI: Abd is soft, non-distended, non-tender MSK: No deformities Skin: Warm, dry Neuro: Alert, dysarthric speech, follows commands in all 4 extremities but has 3/5 strength in bilateral lower extremities, 4/5 strength in bilateral upper extremities Psych: Unable to assess Labs Reviewed CBC W AUTO DIFFERENTIAL - Abnormal; Notable for the following components: Result Value WBC 22.5 (*) Neutrophil % 89.9 (*) Lymphocyte % 3.9 (*) Neutrophil Absolute 20.21 (*) Lymphocyte Absolute 0.88 (*) Monocyte Absolute 1.24 (*) All other components within normal limits COMPREHENSIVE METABOLIC PANEL - Abnormal; Notable for the following components: Glucose 168 (*) Anion Gap 17 (*) Protein Total 9.0 (*) Albumin 3.3 (*) eGFR by CKD-EPI 87 (*) All other components within normal limits CK BLOOD - Abnormal; Notable for the following components: CK 1,415 (*) All other components within normal limits BLOOD GASES ARTERIAL - Abnormal; Notable for the following components: pO2 Arterial 68 (*) HCO3 Arterial 26.6 (*) All other components within normal limits HEMOGLOBIN A1C - Abnormal; Notable for the following components: Hemoglobin A1c 6.1 (*) All other components within normal limits Narrative: HbA1c Interpretation: Normal: < 5.7% Pre-diabetes: 5.7-6.4% Diabetes: Equal to or greater than 6.5% Test results diagnostic of diabetes should be repeated for confirmation. Treatment target values recommended by ADA and other clinical organizations should be used to evaluate metabolic control in patients. This test should not replace glucose testing for patients with Type 1 diabetes, pediatric patients,or women. Falsely low HbA1c results may be observed in patients with clinical conditions that shorten erythrocyte life span or decrease mean erythrocyte age such as the presence of unstable hemoglobin variants, elevated hemoglobin F level or other causes of hemolytic anemia. HbA1c may not accurately reflect glycemic control when clinical conditions that affect erythrocyte survival are present. Severe Iron deficiency anemia may yield falsely high results. Hemoglobin A1c assay should notbe used to diagnose or monitor diabetes in patients with malignancy, recent blood transfusion, chronic kidney or liver disease. This method may yield falsely low results when hemoglobin (HbF) exceeds 5% in the specimen. The [employer] assay for the measurement of HbA1c is a National Glycohemoglobin StandardizationProgram (NGSP) certified method. RENAL FUNCTION PANEL - Abnormal; Notable for the following components: Glucose 235 (*) Potassium 3.2 (*) Albumin 2.9 (*) All other components within normal limits CBC W AUTO DIFFERENTIAL - Abnormal; Notable for the following components: WBC 23.3 (*) All other components within normal limits MAGNESIUM BLOOD - Abnormal; Notable for the following components: Magnesium 1.4 (*) All other components within normal limits DIFFERENTIAL MANUAL - Abnormal; Notable for the following components: Neutrophil % 78 (*) Monocyte % 2 (*) Neutrophil Absolute 18.17 (*) Lymphocyte Absolute 4.66 (*) All other components within normal limits LIPID PROFILE - Abnormal; Notable for the following components: Cholesterol 229 (*) Triglycerides 179 (*) HDL Cholesterol 32 (*) LDL Calculated 161 (*) VLDL Calculated 36 (*) Chol HDL Ratio 7.2 (*) LDL/HDL Ratio 5.0 (*) All other components within normal limits COMPREHENSIVE METABOLIC PANEL - Abnormal; Notable for the following components: Glucose 178 (*) Potassium 3.1 (*) Calcium 7.9 (*) Albumin 2.5 (*) All other components within normal limits CBC W AUTO DIFFERENTIAL - Abnormal; Notable for the following components: WBC 14.6 (*) RBC Count 4.01 (*) Hemoglobin 11.9 (*) Hematocrit 34.9 (*) Neutrophil % 83.2 (*) Lymphocyte % 8.5 (*) Neutrophil Absolute 12.11 (*) Monocyte Absolute 1.08 (*) All other components within normal limits MAGNESIUM BLOOD - Abnormal; Notable for the following components: Magnesium 1.3 (*) All other components within normal limits RENAL FUNCTION PANEL - Abnormal; Notable for the following components: Glucose 195 (*) Potassium 3.2 (*) Albumin 2.5 (*) All other components within normal limits CREATININE - POCT INTERFACED - Abnormal; Notable for the following components: eGFR 84 (*) All other components within normal limits GLUCOSE - POINT OF CARE - Abnormal; Notable for the following components: Glucose WB/POC 276 (*) All other components within normal limits GLUCOSE - POINT OF CARE - Abnormal; Notable for the following components: Glucose WB/POC 228 (*) All other components within normal limits GLUCOSE - POINT OF CARE - Abnormal; Notable for the following components: Glucose WB/POC 187 (*) All other components within normal limits GLUCOSE - POINT OF CARE - Abnormal; Notable for the following components: Glucose WB/POC 177 (*) All other components within normal limits GLUCOSE - POINT OF CARE - Abnormal; Notable for the following components: Glucose WB/POC 159 (*) All other components within normal limits GLUCOSE - POINT OF CARE - Abnormal; Notable for the following components: Glucose WB/POC 182 (*) All other components within normal limits GLUCOSE - POINT OF CARE - Abnormal; Notable for the following components: Glucose WB/POC 200 (*) All other components within normal limits GLUCOSE - POINT OF CARE - Abnormal; Notable for the following components: Glucose WB/POC 190 (*) All other components within normal limits MRSA DNA PCR - Normal Narrative: Methicillin-resistant Staphylococcus aureus (MRSA) DNA is not detected (presumed not colonized withMRSA). PT-INR - Normal Narrative: Conventional Warfarin Anticoagulant Therapy: INR Reference Range: 2.0-3.0 Intensive Warfarin Anticoagulant Therapy: INR Reference Range: 2.5-3.5 PTT - Normal Narrative: Heparin Therapeutic Range for PTT: ??69.0 - 110.0 seconds. TROPONIN-I HIGH SENSITIVE BASELINE + 1HR - Normal ALCOHOL ETHYL BLOOD - Normal Narrative: Ethanol Interp <10: None Detected Depression of CSN: >100 mg/dL Potentially Critical: >250 mg/dL Potentially Fatal >400 mg/dL Ethanol in the patient's blood will contribute to the osmolar gap. Ethanol's contribution to the osmolar gap can be estimated by dividing the concentration of ethanol in mg/dL by 4.6. This test is for clinical use only and does not equal a CIRILO for legal purposes. TROPONIN-I HIGH SENSITIVE REFLEX 1HOUR - Normal URINE DRUG SCREEN IMMUNOASSAY - Normal Narrative: This drug screen is designed for MEDICAL purposes only. It is not to be used for legal purposes, including but not limited to worker's comp, police investigations, occupational issues, child custody,etc. Any positive result is only presumptive and must be confirmed with a separate confirmatory test ordered by the physician. Drug Screening Test Cutoff Values: AMPHETAMINES 1000 ng/mL BARBITURATES 200 ng/mL BENZODIAZEPINES 200 ng/mL CANNABINOIDS(THC) 50 ng/mL COCAINE 300 ng/mL FENTANYL 1 ng/mL METHADONE 300 ng/mL OPIATES 300 ng/mL PHENCYCLIDINE(PCP) 25 ng/mL TROPONIN-I HIGH SENSITIVE BASELINE + 1HR - Normal PHOSPHORUS BLOOD - Normal MAGNESIUM BLOOD - Normal INR - POCT - Normal CULTURE SPUTUM+GRAM STAIN CULTURE BLOOD CULTURE BLOOD BLOOD GASES ART + COOX PANEL SLIDE SCAN HEMATOLOGY TYPE + SCREEN PANEL XR CHEST 1VW PORTABLE Final Result Portable Chest AP History: Basilar artery occlusion.. FINDINGS: Lungs are clear. No pleural effusion or pneumothorax seen. Cardiomegaly median sternotomy. ET tube and NG tube well-positioned.. > Interpreting Provider: Av Blackwood MD on 01/24/2024 5:[address] HEAD NON CONTRAST Final Result PROCEDURE: CT HEAD WO CONTRAST DATE/TIME OF EXAM: 01/24/2024 3:57 AM CLINICAL INFORMATION: None relevant/not provided if blank. 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 CT dose reduction technique was used, including Automated Exposure Control. FINDINGS: No acute parenchymal, intraventricular or extra-axial hemorrhage is identified. Stable chronic lacunar infarcts in the right basal ganglia and left thalamus again noted. Minimal bilateral periventricular white matter hyperdensity seen. No midline shift. Normal ventricular size. Patent basal cisterns. No definite hyperdensity seen within the basilar artery. Intact posterior fossa. Bilateral ethmoid sinus disease. Clear mastoid air cells. IMPRESSION: No acute intracranial hemorrhage. Stable chronic findings. Edited by Keysha Carrasco on 01/24/2024 8:16 AM > Interpreting Provider: Maida Gonzalez MD on 01/24/2024 12:39 PM XR CHEST 1VW PORTABLE Final Result Portable AP Chest x-ray INDICATION: Z45.2: Encounter for adjustment and management of vascular access device COMPARISON: 01/23/2024 FINDINGS: Heart is enlarged but the heart size is stable. Endotracheal tube is unchanged and unremarkable. Left subclavian central venous catheter is in place with its tip in the superior vena cava. There is no focal infiltrate or consolidation. There is no pleural effusion or pneumothorax. > Interpreting Provider: Rony Soliman JR, MD on 01/24/2024 8:15 AM XR CHEST 1VW PORTABLE Final Result PROCEDURE(s): XR CHEST 1VW PORTABLE DATE AND TIME OF EXAM(s): 01/23/2024 7:15 PM INDICATION(s): J96.01: Acute respiratory failure with hypoxia (HCC). COMPARISON(s): Chest radiograph dated 01/23/2024. FINDINGS: Median sternotomy wires are seen. An endotracheal tube terminates between the clavicles and johan. A gastric tube terminates in the [id number], well below the diaphragm. The cardia mediastinal silhouette is grossly unremarkable. The lungs are grossly clear. No pneumothorax or pleural effusion is seen. No acute osseous abnormalities are seen. 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 Operators: Sherie Beltre MD PROCEDURES: 1. Angiogram of cervical and cerebral right vertebral artery 2. Angioplasty with [place] 2.5 mm X 15 mm balloon 4. [...] The diagnostic catheter was exchanged for a cook shuttle which was positioned at the right subclavian artery and a murtaza wire was used to hold it in place, Through this a 6F Angie catheter was inserted and positioned in the distal cervical vertebral artery using exchange length glide wire. A cervical and cerebral angiogram were obtained. Runs performed demonstrated the previously described critical stenosis of the proximal basilar artery . Working projections were straight AP and Lateral. An exchange length Synchro microwire was advanced and used to cross the lesion. A 2.5 x15 mm [place] angioplasty balloon was advanced over the exchange wire and positioned bridging the stenosis. The balloon was inflated to nominal pressure (6atm over 1.5 minutes) and angioplasty was performed. The balloon was pulled back and follow up control runs demonstrated a residual 40% stenosis. The balloon was removed. Attempt to cross the lesion with a wingspan was not possible. Once the right vertebral artery dissection was noted, the procedure was discontinued. Left vertebral angiogram revealed filling of the basilar artery from the left side as well. No distal emboli or filling defects were noted. The guiding catheter was removed. A run performed from the ADMISSIONS DEAN demostrated a normal femoral artery bifurcation. The sheath was exchanged for the angioseal 8F device. The device was deployed and hemostasis was achieved. The right dorsalis pedis pulse was palpable at the end of the closure procedure. The patient tolerated the procedure without immediate complications. he was returned to the recovery area in hemodynamically stable condition and neurologically unchanged. Estimated blood loss: negligible; Fluoroscopic Time: 52.4 minutes; Contrast Utilized: 100cc Findings: There was good arterial, capillary, and venous opacification on all angiographic runs. The right common carotid artery angiogram demonstrated a normal course and caliber of the intracranial ICA with normal course and caliber of the MCA and VAISHNAVI with large PCOM filling the BEACH ATTENDANT. The left vertebral artery angiogram shows a smaller caliber vessel with filling of the basilar artery and cerebellar vessels with severe stenosis of the proximal basilar artery of about 80%. The right artery angiogram reveals normal V1,2 and 3 segments. There is evidence of severe stenosis in the proximal basilar artery measuring 80%. After angioplasty is complete, the stenosis dropped to about 50 % but there was dissection noted in the R distal vertebral artery from manipulation of the vessel. The femoral artery angiogram shows a puncture site above the femoral bifurcation. Impression: A severe stenosis in the proximal basilar artery, s/p successful balloon angioplasty. Residual stenosis about 50% in lateral view. Plan: - Close monitoring in ICU. - Continue tirofiban gtt x 24hrs. Then will obtain CT head prior to starting DAPT - Keep SBP 160-200. Sherie Beltre MD Interventional Vascular Neurology 01/23/2024 MRI BRAIN WO CONTRAST Final Result PROCEDURE: MRI BRAIN WO CONTRAST DATE/TIME OF EXAM: 01/23/2024 12:50 PM CLINICAL INFORMATION: Altered mental status. Unresponsive. COMPARISON: CT head 01/23/2024. CT angiogram head and neck 01/23/2024. TECHNIQUE: MRI of the brain was performed without contrast. FINDINGS: Acute infarction within the medial left thalamus extending into the hypothalamic region and caudally into the medial aspect of the cerebral peduncle and midbrain. This extends caudally as far as the pontomesencephalic junction and occupies expected portions of the left medial longitudinal fasciculus (MLF) and 3rd cranial nerve nucleus. This is consistent with an acute infarction. This is probably associated with a thalamic perforating artery distribution. More subtle area of cytotoxic edema within the right frontal merchant radiata and extending into the lentiform nucleus, also compatible with an acute lacunar type infarction. There is a chronic lacunar infarction within the right frontal merchant radiata and also extending into the lentiform nucleus more posteriorly. This contains a peripheral rim of hemosiderin deposition from hemorrhage. Partially confluent FLAIR hyperintensities affecting the supratentorial white matter is nonspecific but likely indicative of chronic ischemic microangiopathy. Volume loss is commensurate with age. There is no hydrocephalus. No mass, mass effect or midline shift. Flow voids at the skull base are present. Midline structures are unremarkable. Empty sella configuration is commonly an incidental finding. Orbital contents are unremarkable. Mucosal thickening paranasal sinuses with fluid filling the nasal cavity and nasopharynx. There is fluid within both mastoid air cells. IMPRESSION: 1. Acute infarction within the left thalamus, hypothalamus and ipsilateral midbrain extending to the pontomesencephalic junction. 2. Global involutional changes, chronic hemorrhagic lacunar infarction right basal ganglia with superimposed moderate ischemic microangiopathy. > Interpreting Provider: Alexei CruzDO on 01/23/2024 1:06 PM XR CHEST POST ETT Final Result Portable AP Chest x-ray INDICATION: ET tube placement. COMPARISON: None FINDINGS: Mild cardiomegaly. Pulmonary vascularity remains within normal limits. Midline sternotomy. The lungs are clear other than some mild scattered granulomatous change. No pneumothorax. ET tube terminates about 4.2 cm above the johan. Gastric tube extends to the left diaphragm. Distal tube and tip is not included within the [id number]. Impression: 1. ET tube terminates 4.2 cm above the johan. 2. Stable mild cardiomegaly. No terrance congestive failure. > Interpreting Provider: Alexeinorma Cruz DO on 01/23/2024 12:00 PM XR CHEST 1VW PORTABLE Final Result Portable Chest AP History: Altered mental status.. FINDINGS: Lungs are clear. No pleural effusion or pneumothorax seen. Cardiomegaly and median sternotomy. IMPRESSION: No acute disease. > Interpreting Provider: Av Blackwood MD on 01/23/2024 11:[address] ANGIO BRAIN NECK STROKE Final Result PROCEDURE: CT ANGIO BRAIN NECK STROKE DATE/TIME OF EXAM: 01/23/2024 11:00 AM CLINICAL INFORMATION: None relevant/not provided if blank. Indication: R41.82: Altered mental status, unspecified R09.02: Hypoxemia Additional History: COMPARISON: None. TECHNIQUE: CT angiography of the brain and neck was performed without IV contrast followed by IV contrast, including 3D MIPS post processing CTA image reconstruction provided from an independent workstation. Stenosis measurements are based on NASCET criteria. CT dose reduction technique was used, including Automated Exposure Control. CONTRAST: IOPAMIDOL 76 % IV SOLN:80 mL FINDINGS: Both common and internal carotid arteries are patent. The middle and anterior cerebral arteries are widely patent. The cavernous carotid arteries are heavily calcified. Right vertebral artery is dominant. Left vertebral artery is of small caliber. The basilar artery comes severely stenotic, and string-like over a short segment just distal to the confluence of the basilar arteries. The upper/top of the basilar artery is opacified as are both posterior cerebral arteries. Flow identified in both superior cerebellar arteries. The left MACHINE [employer] ELECTRICIAN has supply essentially. IMPRESSION: Short segment severe, string-like stenosis of the lower basilar artery just above the vertebral confluence. > Interpreting Provider: Av Blackwood MD on 01/23/2024 11:[address] BRAIN - Stroke Final Result PROCEDURE: CT BRAIN STROKE DATE/TIME OF EXAM: 01/23/2024 10:39 AM CLINICAL INFORMATION: Found unresponsive with vodka in hand. Unequal pupils. COMPARISON: None. TECHNIQUE: Noncontrast CT brain was performed utilizing standard protocol. CT dose reduction technique was used, including Automated Exposure Control. Viz AI used for intracranial hemorrhage detection FINDINGS: There is no mass effect, midline shift or acute intracranial hemorrhage. Chronic lacunar infarction right frontal merchant radiata and ipsilateral lentiform nucleus. There is an additional lacunar infarction within the left medulla and extending into the dorsal gabriela. Hypoattenuation extends cranially into the cerebral peduncle and ipsilateral thalamus. This may also represent a lacunar infarction but technically indeterminant. MRI of the brain may be obtained if there is concern for acute ischemia. Less likely this is from trans-synaptic degeneration. Additionally there are scattered areas of hypoattenuation affecting the supratentorial white matter, probably underlying ischemic microangiopathy. There is no depressed calvarial fracture. The sinuses are clear. Partially opacified mastoid air cells bilaterally. No aggressive bone destruction or coalescence. Orbital contents are unremarkable. Nasal airway. IMPRESSION: 1. No acute intracranial hemorrhage. 2. Involutional changes with chronic lacunar infarctions and ischemic microangiopathy. 3. Age indeterminate infarction left thalamus and less likely a sequela of trans-synaptic degeneration. MRI brain if there is concern for acute ischemia. > Interpreting Provider: Alexei Cruz DO on 01/23/2024 10:57 AM Medications 0.9% NaCl injection 3 mL (3 mL Intracatheter $ Given 01/24/242005) And 0.9% NaCl injection 1-10 mL (has no administration in time range) *Hold/Avoid Medication ( Other *Reviewed 01/24/242003) verapamil (Isoptin) injection ADS Med (has no administration in time range) nitroGLYCERIN 200 mcg/ml in dextrose 5 % infusion ADS Med (has no administration in time range) tirofiban (Aggrastat) 0.05 mg/mL bolus from infusion bag (1,633.2 mcg Intravenous Bolus From Bag 01/23/24 2828) Followed by tirofiban (Aggrastat) 0.05 mg/mL infusion (0 mcg/kg/min ?? 136.1 kg Intravenous Stopped 01/24/24 1609) nitroGLYCERIN (Nitro-Bid) 2% ointment ADS Med (has no administration in time range) DOPamine 1600 mcg/mL infusion ADS Med (has no administration in time range) atropine 0.1 mg/ml syringe ADS Med (has no administration in time range) glycopyrrolate (Robinul) injection ADS Med (has no administration in time range) chlorhexidine (Peridex) 0.12 % oral solution 15 mL (15 mL Swish and Spit $ Given 01/24/242004) glucose (Diabetic Use) oral gel (has no administration in time range) dextrose 10 % IV bolus (has no administration in time range) Or dextrose 10 % IV bolus (has no administration in time range) Or glucagon (Glucagen) injection 1 mg (has no administration in time range) insulin aspart (NovoLOG) pen 0-12 Units (4 Units Subcutaneous $ Given 01/24/242007) senna-docusate (Senokot-S) tablet 2 tablet (2 tablets Enteral Tube $ Given 01/24/242004) lansoprazole (Prevacid) suspension 30 mg (30 mg Enteral Tube $ Given 01/24/24 0802) fentaNYL (Sublimaze) bolus from infusion bag 50 mcg (50 mcg Intravenous Bolus From Bag 01/24/24 183) norepinephrine (Levophed) 8 mg/250 ml D5 infusion premix (0.05 mcg/kg/min ?? 136 kg Intravenous Current Rate 01/24/24 1830) fentaNYL 2500 mcg/50mL infusion (75 mcg/hr Intravenous Current Rate 01/24/24 1830) acetaminophen (Tylenol) tablet 650 mg (650 mg Enteral Tube $ Given 01/24/24 182) Or acetaminophen (Tylenol) suppository 650 mg ( Rectal See Alternative 01/24/24 182) cefTRIAXone (Rocephin) 2,000 mg in 0.9% NaCl IV 50 mL IVPB (0 mg Intravenous Stopped 01/24/24 1106) aspirin chew tablet 81 mg (has no administration in time range) artificial tears ophthalmic ointment ( Each Eye $ Given 01/24/242005) heparin injection 5,000 Units (has no administration in time range) clopidogrel (plaVIX) tablet 75 mg (75 mg Enteral Tube $ Given 01/24/24 1610) ondansetron (Zofran) injection 4 mg (4 mg Intravenous $ Given 01/24/24 1644) prochlorperazine (Compazine) injection 10 mg (10 mg Intravenous $ Given 01/24/24 1836) albuterol-ipratropium (Duo-Neb) nebulizer solution 3 mL (has no administration in time range) etomidate (Amidate) injection 20 mg (20 mg Intravenous $ Given 01/23/24 1139) rocuronium (Zemuron) injection 100 mg (100 mg Intravenous $ Given 01/23/24 1139) midazolam (Versed) injection 5 mg (5 mg Intravenous $ Given 01/23/24 1156) midazolam (Versed) injection 5 mg (5 mg Intravenous $ Given 01/23/24 1305) fentaNYL (PF) (Sublimaze) injection 100 mcg (100 mcg Intravenous $ Given 01/23/24 1300) potassium chloride 20 mEq in 100 mL SW bolus (0 mEq Intravenous Stopped 01/24/24 0236) potassium chloride 40 mEq in 270 mL bolus (0 mEq Intravenous Stopped 01/24/24 1106) magnesium sulfate 2 g in 50 mL bolus (0 g Intravenous Stopped 01/24/24 0809) calcium gluconate 2 g in 100 mL NaCl 0.675% (0 g Intravenous Stopped 01/24/24 0707) perflutren (Definity) injection ADS Med (0.39 mL $ Given 01/24/24 0931) furosemide (Lasix) injection 40 mg (40 mg Intravenous $ Given 01/24/24 1153) potassium chloride (Klor-Con) packet 40 mEq (40 mEq Enteral Tube $ Given 01/24/24 1614) magnesium sulfate 4 g in 100 mL bolus ( Intravenous Current Rate 01/24/24 1830) Procedures: Critical Care Addendum Note: Indication: Acute ischemic stroke I provided a total of 45 minutes of critical care excluding separately billable procedures. The time was intermittent distributed over the ED course. This includes time with EMS, initial bedside evaluation, reviewing old records, review of testing done while under my care, discussion with the family (sister), nurses and guiding the patient???s care while in the emergency department. Approximate time distribution: 15 minutes - Initial evaluation, d/w involved parties, attempting to gather old records 10 minutes - Documenting medical record 5 minutes - Review of results (EKGs, labs, imaging) 10 minutes - Serial repeat bedside evaluation 5 minutes - Discussing case with multiple providers Intubation Date/Time: 01/23/2024 11:39 AM Performed by: Gladys Mcgee MD Authorized by: Gladys Mcgee MD Consent: Consent obtained: Emergent situation [place] protocol: Relevant documents present and verified: yes Immediately prior to procedure, a time out was called: yes Patient identity confirmed: Provided demographic data Pre-procedure details: Indications: airway protection Patient status: Altered mental status Pharmacologic strategy: RSI Induction agents: Etomidate Paralytics: Rocuronium Procedure details: Preoxygenation: Nonrebreather mask CPR in progress: no Number of attempts: 1 Successful intubation attempt details: Intubation method: Oral Intubation technique: video assisted Laryngoscope blade: Mac 4 Bougie used: no Grade view: I Tube size (mm): 8.0 Tube type: Cuffed Tube visualized through cords: yes Placement assessment: ETT at teeth/gumline (cm): 26 Tube secured with: ETT padilla Breath sounds: Equal Placement verification: chest rise, colorimetric ETCO2, CXR verification, direct visualization, equal breath sounds and tube exhalation CXR findings: Appropriate position Post-procedure details: Procedure completion: Tolerated well, no immediate complications MDM: This is a 63 yo male presenting with altered mental status, high suspicion for acute ischemic stroke. Code stroke activated in the field. I evaluated the patient in the trauma bay, given concern for airway protection prior to obtaining CT/CTA for further evaluation of stroke. His GCS was 14. Decision made to proceed emergently to CT. CT head reviewed by me and negative for acute intracranial hemorrhage. CTA head/neck reviewed by me and discussed with stroke neurologist, Dr. Beltre. Concern for basilar artery thrombosis vs stenosis. Dr. Beltre requests STAT MRI. Given concern for airway protection during MRI, decision was made to intubate the patient. Dr. Beltre recommends SBP goal of 160 throughout intubation. The patient was intubated, as above, without complication. SBP > 160 throughout. Started on IV fentanyl and IV Versed. Patient sent to MRI. Immediately after MRI, I received a call from the patient's nurse. Who states that the patient maintained SBP > 160 throughout MRI but required additional sedation towards the end of the procedure and SBP dropped to 120. I gave ordres to give 300 mcg IV phenylephrine (3mL). Patient's BP responded. Labs reviewed by me and remarkable for leukocytosis, elevated CK. I discussed the above w/ Dr. Wisdom w/ ICU, who accepts the patient for admission for further evaluation and management. Assessment/Diagnosis and Plan: ICD-10-CM 1. Encounter for central line placement Z45.2 XR CHEST 1VW PORTABLE 2. Altered mental status, unspecified altered mental status type R41.82 EKG 12-LEAD CT BRAIN - Stroke CT ANGIO BRAIN NECK STROKE MRI BRAIN WO CONTRAST ADMIT TO ECHO TRANSTHORACIC W BUBBLE STUDY BLOOD GASES ARTERIAL IR CAROTID CEREBRAL ANGIOGRAM 3. 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 Acute hypoxemic respiratory failure (HCC) J96.01 XR CHEST 1VW PORTABLE XR CHEST 1VW PORTABLE * Laure Celeste, ZACHARY - 01/23/2024 10:27 AM CDT Bed: [facility] Expected date: 01/23/24 Expected time: 10:17 AM Means of arrival: Comments: 4037 unresponsive code stroke documented in this encounter Miscellaneous Notes * Significant Event - Manisha Terry MD - 02/02/2024 11:42 AM CDT Called to bedside to evaluate patient. Poor secretion clearance and frequent NT suctioning. Assessed patient at bedside and suctioned copious thick oropharyngeal secretions. Patient tachypneic and high risk for re-intubation. ICU will sign back on. Discussed with Dr Biswas. Manisha Terry MD * Coding Query - Yessenia Kerr MD - 01/31/2024 12:41 PM CDT DOCUMENTATION CLARIFICATION REQUEST Use the F2 function paula to complete the query. Click on ???Sign?? to file the note. TO: Dr. Kerr FROM: Sue Montalvo, MSN, RN, CDS Patient Name: Raza Vazquez Please review the clinical information below and clarify if the patient is being treated for: Choices may include but are not limited to: ??? Severe protein calorie malnutrition, POA ??? Moderate protein calorie malnutrition, POA ??? Mild protein calorie malnutrition, POA ??? Unable to determine ??? Other, please specify The medical record reflects the following: o Risk Factors: Acute ischemic stroke, alcohol use disorder, DM, dysphagia. o Clinical Findings: Per nutrition note 01/30: Meets criteria for severe protein calorie malnutrition with weight loss > or equal to 2% x 1 week, energy intake < 50% of estimated energy requirement for > 5 days and mild muscle loss identified (Meets ASPEN criteria for severe protein caloriemalnutrition in acute illness) BMI 35.02. o Treatment: Registered Land Surveyor consult, tube feeding with Osmolite 1.2 @ 30ml/hr, GI consult, PEG tube insertion. PROVIDER RESPONSE (Use F2 to respond) ??? Severe protein calorie malnutrition, POA Please provide your clinical opinion and findings to support the diagnosis in the progress notes & carry it through into your discharge summary. THIS DOCUMENT IS MAINTAINED A PERMANENT PART OF THE MEDICAL RECORD. documented in this encounter Plan of Treatment Upcoming Encounters Date Type Department Care Team (Late st Contact Info) Description 10/20/2024 8:00 AM CAFETERIA MANAGER Office Visit [facility] - Family Medicine [address] [facility] [place] [phone] Kiana Cole MD [address] [place] [address] 11/28/2024 9:00 AM CAFETERIA MANAGER Office Visit [facility] - Neurology [address] [facility] [place] [phone] Aline Finch MD [address] [facility] [place] [address] 02/10/2025 10:00 AM CDT Office Visit [facility] - Cardiology [address] [facility] [place] [address] Curly Lay MD [address] [facility] [address] [place] [address] Scheduled Orders Name Type Priority Associated Diagnoses Order Schedule INITIATE RT BRONCHODILATOR PROTOCOL Respiratory Care Routine ONCE for 1 Occurrences starting 01/23/2024 until 01/23/2024 REASSESSMENT PARAMETERS Respiratory Care Routine ONCE for 1 Occurrences starting 01/28/2024 until 01/28/2024 INITIATE SBT (VENTILATOR LIBERATION TRIAL) PROTOCOL Respiratory Care Routine ONCE for 1 Occurrences starting 02/02/2024 until 02/02/2024 High Flow Nasal Cannula Therapy Respiratory Care Routine ONCE for 1 Occurrences starting 02/14/2024 until 02/14/2024 documented as of this encounter Procedures Procedure Name Priority Date/Time Associated Diagnosis Comments CARDIAC RHYTHM STRIP ORDER 02/18/2024 7:29 PM CDT GLUCOSE - POINT OF CARE Routine 02/15/2024 5:13 PM CDT GLUCOSE - POINT OF CARE Routine 02/15/2024 12:09 PM CDT GLUCOSE - POINT OF CARE Routine 02/15/2024 5:32 AM CDT CBC W AUTO DIFFERENTIAL AM Draw 02/15/2024 4:23 AM CDT BASIC METABOLIC PANEL (CALCIUM TOTAL) AM Draw 02/15/2024 4:23 AM CDT PHOSPHORUS BLOOD AM Draw 02/15/2024 4:23 AM CDT MAGNESIUM BLOOD AM Draw 02/15/2024 4:23 AM CDT GLUCOSE - POINT OF CARE Routine 02/14/2024 11:55 PM CDT GLUCOSE - POINT OF CARE Routine 02/14/2024 6:23 PM CDT RENAL FUNCTION PANEL Routine 02/14/2024 4:10 PM CDT GLUCOSE - POINT OF CARE Routine 02/14/2024 12:24 PM CDT GLUCOSE - POINT OF CARE Routine 02/14/2024 5:31 AM CDT CBC W AUTO DIFFERENTIAL AM Draw 02/14/2024 4:29 AM CDT BASIC METABOLIC PANEL (CALCIUM TOTAL) AM Draw 02/14/2024 4:29 AM CDT PHOSPHORUS BLOOD AM Draw 02/14/2024 4:29 AM CDT MAGNESIUM BLOOD AM Draw 02/14/2024 4:29 AM CDT GLUCOSE - POINT OF CARE Routine 02/13/2024 11:52 PM CDT GLUCOSE - POINT OF CARE Routine 02/13/2024 6:37 PM CDT GLUCOSE - POINT OF CARE Routine 02/13/2024 12:24 PM CDT GLUCOSE - POINT OF CARE Routine 02/13/2024 5:52 AM CDT SLIDE SCAN HEMATOLOGY AM Draw 02/13/2024 4:29 AM CDT CBC W AUTO DIFFERENTIAL AM Draw 02/13/2024 4:29 AM CDT BASIC METABOLIC PANEL (CALCIUM TOTAL) AM Draw 02/13/2024 4:29 AM CDT PHOSPHORUS BLOOD AM Draw 02/13/2024 4:29 AM CDT MAGNESIUM BLOOD AM Draw 02/13/2024 4:29 AM CDT GLUCOSE - POINT OF CARE Routine 02/12/2024 11:39 PM CDT GLUCOSE - POINT OF CARE Routine 02/12/2024 6:06 PM CDT GLUCOSE - POINT OF CARE Routine 02/12/2024 12:30 PM CDT CBC W AUTO DIFFERENTIAL AM Draw 02/12/2024 4:58 AM CDT BASIC METABOLIC PANEL (CALCIUM TOTAL) AM Draw 02/12/2024 4:58 AM CDT PHOSPHORUS BLOOD AM Draw 02/12/2024 4:58 AM CDT MAGNESIUM BLOOD AM Draw 02/12/2024 4:58 AM CDT GLUCOSE - POINT OF CARE Routine 02/12/2024 12:03 AM CDT GLUCOSE - POINT OF CARE Routine 02/11/2024 5:07 PM CDT GLUCOSE - POINT OF CARE Routine 02/11/2024 12:30 PM CDT GLUCOSE - POINT OF CARE Routine 02/11/2024 6:08 AM CDT CBC W AUTO DIFFERENTIAL AM Draw 02/11/2024 4:02 AM CDT BASIC METABOLIC PANEL (CALCIUM TOTAL) AM Draw 02/11/2024 4:02 AM CDT PHOSPHORUS BLOOD AM Draw 02/11/2024 4:02 AM CDT MAGNESIUM BLOOD AM Draw 02/11/2024 4:02 AM CDT GLUCOSE - POINT OF CARE Routine 02/11/2024 12:33 AM CDT GLUCOSE - POINT OF CARE Routine 02/10/2024 5:07 PM CDT GLUCOSE - POINT OF CARE Routine 02/10/2024 12:42 PM CDT XR CHEST 1VW PORTABLE STAT 02/10/2024 11:26 AM CDT Tracheostomy in place (HCC) XR CHEST 1VW PORTABLE Routine 02/10/2024 9:40 AM CDT Hypoxia Staphylococcus aureus infection GLUCOSE - POINT OF CARE Routine 02/10/2024 6:14 AM CDT CBC W AUTO DIFFERENTIAL AM Draw 02/10/2024 3:24 AM CDT BASIC METABOLIC PANEL (CALCIUM TOTAL) AM Draw 02/10/2024 3:24 AM CDT PHOSPHORUS BLOOD AM Draw 02/10/2024 3:24 AM CDT MAGNESIUM BLOOD AM Draw 02/10/2024 3:24 AM CDT GLUCOSE - POINT OF CARE Routine 02/10/2024 12:07 AM CDT GLUCOSE - POINT OF CARE Routine 02/09/2024 5:28 PM CDT GLUCOSE - POINT OF CARE Routine 02/09/2024 12:22 PM CDT CBC W AUTO DIFFERENTIAL AM Draw 02/09/2024 8:36 AM CDT GLUCOSE - POINT OF CARE Routine 02/09/2024 6:05 AM CDT BASIC METABOLIC PANEL (CALCIUM TOTAL) Timed 02/09/2024 4:41 AM CDT MAGNESIUM BLOOD Routine 02/09/2024 4:41 AM CDT PHOSPHORUS BLOOD Timed 02/09/2024 12:3 0 AM CDT MAGNESIUM BLOOD Routine 02/09/2024 12:30 AM CDT GLUCOSE - POINT OF CARE Routine 02/09/2024 12:09 AM CDT GLUCOSE - POINT OF CARE Routine 02/08/2024 6:13 PM CDT BASIC METABOLIC PANEL (CALCIUM TOTAL) Timed 02/08/2024 11:53 AM CDT PHOSPHORUS BLOOD Timed 02/08/2024 11:5 3 AM CDT MAGNESIUM BLOOD Routine 02/08/2024 11:53 AM CDT AMMONIA Routine 02/08/2024 11:53 AM CDT GLUCOSE - POINT OF CARE Routine 02/08/2024 11:05 AM CDT GLUCOSE - POINT OF CARE Routine 02/08/2024 6:36 AM CDT TSH REFLEX FREE T4 Routine 02/08/2024 5: 26 AM CDT SLIDE SCAN HEMATOLOGY Routine 02/08/2024 5:26 AM CDT CBC W AUTO DIFFERENTIAL Routine 02/08/2024 5:26 AM CDT BASIC METABOLIC PANEL (CALCIUM TOTAL) Timed 02/08/2024 5:26 AM CDT HEPATIC FUNCTION PANEL Routine 5:26 AM CDT BASIC METABOLIC PANEL (CALCIUM TOTAL) HIMANSHU 02/08/2024 12:11 AM CDT PHOSPHORUS BLOOD Timed 02/08/2024 12:1 1 AM CDT MAGNESIUM BLOOD Routine 02/08/2024 12:11 AM CDT GLUCOSE - POINT OF CARE Routine 02/08/2024 12:08 AM CDT GLUCOSE - POINT OF CARE Routine 02/07/2024 5:55 PM CDT BASIC METABOLIC PANEL (CALCIUM TOTAL) Timed 02/07/2024 3:34 PM CDT MRI BRAIN WO CONTRAST STAT 02/07/2024 3:06 PM CDT Altered mental status, unspecified altered mental status type PHOSPHORUS BLOOD Timed 02/07/2024 12:0 9 PM CDT GLUCOSE - POINT OF CARE Routine 02/07/2024 11:52 AM CDT GLUCOSE - POINT OF CARE Routine 02/07/2024 6:18 AM CDT SLIDE SCAN HEMATOLOGY HIMANSHU 02/07/2024 4:22 AM CDT CBC W AUTO DIFFERENTIAL HIMANSHU 02/07/2024 4:22 AM CDT BASIC METABOLIC PANEL (CALCIUM TOTAL) Timed 02/07/2024 4:22 AM CDT MAGNESIUM BLOOD Routine 02/07/2024 4:22 AM CDT GLUCOSE - POINT OF CARE Routine 02/07/2024 12:36 AM CDT PHOSPHORUS BLOOD Timed 02/07/2024 12:3 6 AM CDT MAGNESIUM BLOOD Routine 02/07/2024 12:36 AM CDT GLUCOSE - POINT OF CARE Routine 02/06/2024 9:42 PM CDT BASIC METABOLIC PANEL (CALCIUM TOTAL) Timed 02/06/2024 5:45 PM CDT URINALYSIS REFLEX TO MICROSCOPIC NO CULTURE Routine 02/06/2024 11:40 AM CDT URINE MICROSCOPIC ONLY Routine 11:40 AM CDT GLUCOSE - POINT OF CARE Routine 02/06/2024 11:37 AM CDT MRSA DNA PCR STAT 02/06/2024 11:33 AM CDT CULTURE SPUTUM+GRAM STAIN HIMANSHU 02/06/2024 11:33 AM CDT CULTURE BLOOD Timed 02/06/2024 11:31 AM CDT CULTURE BLOOD Timed 02/06/2024 11:13 AM CDT PHOSPHORUS BLOOD Timed 02/06/2024 11:1 3 AM CDT MAGNESIUM BLOOD Routine 02/06/2024 11:13 AM CDT GLUCOSE - POINT OF CARE Routine 02/06/2024 6:31 AM CDT SLIDE SCAN HEMATOLOGY Routine 02/06/2024 4:20 AM CDT CBC W AUTO DIFFERENTIAL Routine 02/06/2024 4:20 AM CDT BASIC METABOLIC PANEL (CALCIUM TOTAL) Timed 02/06/2024 4:20 AM CDT PHOSPHORUS BLOOD Timed 02/06/2024 12:0 0 AM CDT MAGNESIUM BLOOD Routine 02/06/2024 12:00 AM CDT GLUCOSE - POINT OF CARE Routine 02/05/2024 11:59 PM CDT GLUCOSE - POINT OF CARE Routine 02/05/2024 10:23 PM CDT GLUCOSE - POINT OF CARE Routine 02/05/2024 5:58 PM CDT BASIC METABOLIC PANEL (CALCIUM TOTAL) Timed 02/05/2024 5:32 PM CDT GLUCOSE - POINT OF CARE Routine 02/05/2024 2:37 PM CDT PHOSPHORUS BLOOD Timed 02/05/2024 11:0 5 AM CDT MAGNESIUM BLOOD Routine 02/05/2024 11:05 AM CDT GLUCOSE - POINT OF CARE Routine 02/05/2024 10:54 AM CDT XR CHEST 1VW PORTABLE STAT 02/05/2024 9:00 AM CDT Tracheostomy in place (HCC) GLUCOSE - POINT OF CARE Routine 02/05/2024 5:56 AM CDT CBC W AUTO DIFFERENTIAL AM Draw 02/05/2024 3:31 AM CDT BASIC METABOLIC PANEL (CALCIUM TOTAL) Timed 02/05/2024 3:31 AM CDT PHOSPHORUS BLOOD Timed 02/04/2024 11:3 6 PM CDT MAGNESIUM BLOOD Routine 02/04/2024 11:36 PM CDT GLUCOSE - POINT OF CARE Routine 02/04/2024 11:34 PM CDT BASIC METABOLIC PANEL (CALCIUM TOTAL) Timed 02/04/2024 4:32 PM CDT GLUCOSE - POINT OF CARE Routine 02/04/2024 4:31 PM CDT PHOSPHORUS BLOOD Timed 02/04/2024 11:4 0 AM CDT MAGNESIUM BLOOD Routine 02/04/2024 11:40 AM CDT GLUCOSE - POINT OF CARE Routine 02/04/2024 11:32 AM CDT GLUCOSE - POINT OF CARE Routine 02/04/2024 6:04 AM CDT CBC W AUTO DIFFERENTIAL AM Draw 02/04/2024 3:28 AM CDT TRIGLYCERIDES BLOOD AM Draw 02/04/2024 3 :28 AM CDT BASIC METABOLIC PANEL (CALCIUM TOTAL) Timed 02/03/2024 11:34 PM CDT PHOSPHORUS BLOOD Timed 02/03/2024 11:3 4 PM CDT MAGNESIUM BLOOD Routine 02/03/2024 11:34 PM CDT GLUCOSE - POINT OF CARE Routine 02/03/2024 11:32 PM CDT GLUCOSE - POINT OF CARE Routine 02/03/2024 5:28 PM CDT GLUCOSE - POINT OF CARE Routine 02/03/2024 11:53 AM CDT DIFFERENTIAL MANUAL AM Draw 02/03/2024 1 0:01 AM CDT CBC W AUTO DIFFERENTIAL AM Draw 02/03/2024 10:01 AM CDT BASIC METABOLIC PANEL (CALCIUM TOTAL) Timed 02/03/2024 10:01 AM CDT PHOSPHORUS BLOOD Timed 02/03/2024 10:0 1 AM CDT MAGNESIUM BLOOD Routine 02/03/2024 10:01 AM CDT GLUCOSE - POINT OF CARE Routine 02/03/2024 6:06 AM CDT BASIC METABOLIC PANEL (CALCIUM TOTAL) Timed 02/02/2024 11:30 PM CDT PHOSPHORUS BLOOD Timed 02/02/2024 11:3 0 PM CDT MAGNESIUM BLOOD Routine 02/02/2024 11:30 PM CDT GLUCOSE - POINT OF CARE Routine 02/02/2024 11:29 PM CDT XR CHEST POST PROCEDURE Routine 02/02/2024 5:23 PM CDT Altered mental status, unspecified altered mental status type GLUCOSE - POINT OF CARE Routine 02/02/2024 5:01 PM CDT BLOOD GASES ARTERIAL STAT 02/02/2024 4:09 PM CDT Hypoxia XR ABDOMEN KUB STAT 02/02/2024 1:20 PM CDT Hypoxia XR CHEST 1VW PORTABLE STAT 02/02/2024 1:10 PM CDT Hypoxia GLUCOSE - POINT OF CARE Routine 02/02/2024 11:56 AM CDT BASIC METABOLIC PANEL (CALCIUM TOTAL) Timed 02/02/2024 10:54 AM CDT PHOSPHORUS BLOOD Timed 02/02/2024 10:5 4 AM CDT MAGNESIUM BLOOD Routine 02/02/2024 10:54 AM CDT GLUCOSE - POINT OF CARE Routine 02/02/2024 4:25 AM CDT GLUCOSE - POINT OF CARE Routine 02/01/2024 11:50 PM CDT BASIC METABOLIC PANEL (CALCIUM TOTAL) Timed 02/01/2024 10:20 PM CDT PHOSPHORUS BLOOD Timed 02/01/2024 10:2 0 PM CDT MAGNESIUM BLOOD Routine 02/01/2024 10:20 PM CDT GLUCOSE - POINT OF CARE Routine 02/01/2024 5:37 PM CDT GLUCOSE - POINT OF CARE Routine 02/01/2024 11:25 AM CDT BASIC METABOLIC PANEL (CALCIUM TOTAL) Timed 02/01/2024 11:25 AM CDT PHOSPHORUS BLOOD Timed 02/01/2024 11:2 5 AM CDT MAGNESIUM BLOOD Routine 02/01/2024 11:25 AM CDT GLUCOSE - POINT OF CARE Routine 02/01/2024 4:26 AM CDT BASIC METABOLIC PANEL (CALCIUM TOTAL) Timed 01/31/2024 10:57 PM CDT PHOSPHORUS BLOOD Timed 01/31/2024 10:5 7 PM CDT MAGNESIUM BLOOD Routine 01/31/2024 10:57 PM CDT GLUCOSE - POINT OF CARE Routine 01/31/2024 8:43 PM CDT GLUCOSE - POINT OF CARE Routine 01/31/2024 6:31 PM CDT PHOSPHORUS BLOOD Timed 01/31/2024 1:19 PM CDT MAGNESIUM BLOOD Routine 01/31/2024 1:19 PM CDT GLUCOSE - POINT OF CARE Routine 01/31/2024 1:07 PM CDT BASIC METABOLIC PANEL (CALCIUM TOTAL) AM Draw 01/31/2024 11:16 AM CDT MAGNESIUM BLOOD Timed 01/31/2024 11:16 AM CDT GLUCOSE - POINT OF CARE Routine 01/31/2024 5:46 AM CDT GLUCOSE - POINT OF CARE Routine 01/31/2024 12:18 AM CDT GLUCOSE - POINT OF CARE Routine 01/30/2024 4:09 PM CDT UT EGD FLEX TRANSORAL W PLCMT GTUBE PERC 01/30/2024 2:00 PM CDT GLUCOSE - POINT OF CARE Routine 01/30/2024 12:59 PM CDT GLUCOSE - POINT OF CARE Routine 01/30/2024 8:24 AM CDT EGD WITH PEG PLACEMENT Routine 6:35 AM CDT GLUCOSE - POINT OF CARE Routine 01/30/2024 6:26 AM CDT CBC W AUTO DIFFERENTIAL AM Draw 01/30/2024 4:29 AM CDT COMPREHENSIVE METABOLIC PANEL Routine 01/30/2024 4:29 AM CDT PHOSPHORUS BLOOD Routine 01/30/2024 4:29 AM CDT MAGNESIUM BLOOD Routine 01/30/2024 4:29 AM CDT GLUCOSE - POINT OF CARE Routine 01/30/2024 12:24 AM CDT GLUCOSE - POINT OF CARE Routine 01/29/2024 6:38 PM CDT GLUCOSE - POINT OF CARE Routine 01/29/2024 12:32 PM CDT GLUCOSE - POINT OF CARE Routine 01/29/2024 7:59 AM CDT GLUCOSE - POINT OF CARE Routine 01/29/2024 6:56 AM CDT CBC W AUTO DIFFERENTIAL AM Draw 01/29/2024 2:59 AM CDT COMPREHENSIVE METABOLIC PANEL Routine 01/29/2024 2:59 AM CDT PHOSPHORUS BLOOD Routine 01/29/2024 2:59 AM CDT MAGNESIUM BLOOD Routine 01/29/2024 2:59 AM CDT GLUCOSE - POINT OF CARE Routine 01/29/2024 12:09 AM CDT GLUCOSE - POINT OF CARE Routine 01/28/2024 8:16 PM CDT GLUCOSE - POINT OF CARE Routine 01/28/2024 6:58 PM CDT GLUCOSE - POINT OF CARE Routine 01/28/2024 12:09 PM CDT GLUCOSE - POINT OF CARE Routine 01/28/2024 8:28 AM CDT CBC W AUTO DIFFERENTIAL AM Draw 01/28/2024 3:41 AM CDT COMPREHENSIVE METABOLIC PANEL Routine 01/28/2024 3:41 AM CDT PHOSPHORUS BLOOD Routine 01/28/2024 3:41 AM CDT MAGNESIUM BLOOD Routine 01/28/2024 3:41 AM CDT GLUCOSE - POINT OF CARE Routine 01/28/2024 3:40 AM CDT GLUCOSE - POINT OF CARE Routine 01/28/2024 12:58 AM CDT GLUCOSE - POINT OF CARE Routine 01/27/2024 8:14 PM CDT GLUCOSE - POINT OF CARE Routine 01/27/2024 4:20 PM CDT EEG EXTENDED MONITORING > 1 HOUR STAT 01/27/2024 12:56 PM CDT BLOOD GASES+LYTES ARTERIAL Routine 01/27/2024 12:33 PM CDT GLUCOSE - POINT OF CARE Routine 01/27/2024 12:[address] HEAD WO CONTRAST STAT 01/27/2024 1 2:23 PM CDT Altered mental status, unspecified altered mental status type Basilar artery thrombosis GLUCOSE - POINT OF CARE Routine 01/27/2024 8:45 AM CDT CBC W AUTO DIFFERENTIAL AM Draw 01/27/2024 5:37 AM CDT COMPREHENSIVE METABOLIC PANEL Routine 01/27/2024 5:37 AM CDT PHOSPHORUS BLOOD Routine 01/27/2024 5:37 AM CDT MAGNESIUM BLOOD Routine 01/27/2024 5:37 AM CDT CK BLOOD Add on 01/27/2024 5:37 AM CDT GLUCOSE - POINT OF CARE Routine 01/27/2024 5:32 AM CDT GLUCOSE - POINT OF CARE Routine 01/27/2024 12:54 AM CDT GLUCOSE - POINT OF CARE Routine 01/26/2024 8:46 PM CDT GLUCOSE - POINT OF CARE Routine 01/26/2024 4:03 PM CDT XR ABDOMEN KUB STAT 01/26/2024 3:06 PM CDT Basilar artery thrombosis GLUCOSE - POINT OF CARE Routine 01/26/2024 11:47 AM CDT GLUCOSE - POINT OF CARE Routine 01/26/2024 7:41 AM CDT GLUCOSE - POINT OF CARE Routine 01/26/2024 4:21 AM CDT CBC W AUTO DIFFERENTIAL AM Draw 01/26/2024 4:13 AM CDT COMPREHENSIVE METABOLIC PANEL Routine 01/26/2024 4:13 AM CDT PHOSPHORUS BLOOD Routine 01/26/2024 4:13 AM CDT MAGNESIUM BLOOD Routine 01/26/2024 4:13 AM CDT GLUCOSE - POINT OF CARE Routine 01/26/2024 1:36 AM CDT GLUCOSE - POINT OF CARE Routine 01/25/2024 8:41 PM CDT GLUCOSE - POINT OF CARE Routine 01/25/2024 4:09 PM CDT GLUCOSE - POINT OF CARE Routine 01/25/2024 11:48 AM CDT XR ABDOMEN KUB STAT 01/25/2024 11:19 AM CDT Nausea and vomiting, unspecified vomiting type GLUCOSE - POINT OF CARE Routine 01/25/2024 8:21 AM CDT CBC W AUTO DIFFERENTIAL AM Draw 01/25/2024 3:04 AM CDT COMPREHENSIVE METABOLIC PANEL Routine 01/25/2024 3:04 AM CDT PHOSPHORUS BLOOD Routine 01/25/2024 3:04 AM CDT MAGNESIUM BLOOD Routine 01/25/2024 3:04 AM CDT GLUCOSE - POINT OF CARE Routine 01/24/2024 11:22 PM CDT GLUCOSE - POINT OF CARE Routine 01/24/2024 8:08 PM CDT XR CHEST 1VW PORTABLE STAT 01/24/2024 5:41 PM CDT Basilar artery thrombosis Acute hypoxemic respiratory failure (HCC) GLUCOSE - POINT OF CARE Routine 01/24/2024 4:22 PM CDT RENAL FUNCTION PANEL Routine 01/24/2024 2:30 PM CDT MAGNESIUM BLOOD Routine 01/24/2024 2:30 PM CDT ECHO COMPLETE W CONTRAST W BUBBLE STUDY Routine 01/24/2024 1:16 PM CDT Altered mental status, unspecified altered mental status type Hypoxia GLUCOSE - POINT OF CARE Routine 01/24/2024 12:14 PM CDT CULTURE BLOOD Timed 01/24/2024 10:23 AM CDT CULTURE BLOOD Timed 01/24/2024 10:08 AM CDT GLUCOSE - POINT OF CARE Routine 01/24/2024 8:25 AM CDT CULTURE SPUTUM+GRAM STAIN Routine 01/24/2024 4:43 AM CDT GLUCOSE - POINT OF CARE Routine 01/24/2024 4:43 AM CDT CBC W AUTO DIFFERENTIAL AM Draw 01/24/2024 4:43 AM CDT COMPREHENSIVE METABOLIC PANEL Routine 01/24/2024 4:43 AM CDT PHOSPHORUS BLOOD Routine 01/24/2024 4:43 AM CDT MAGNESIUM BLOOD Routine 01/24/2024 4:43 AM CDT LIPID PROFILE AM Draw 01/24/2024 4:[address] HEAD WO CONTRAST Routine 01/24/2024 3 :57 AM CDT Basilar artery thrombosis GLUCOSE - POINT OF CARE Routine 01/23/2024 11:52 PM CDT XR CHEST 1VW PORTABLE STAT 01/23/2024 11:20 PM CDT Encounter for central line placement GLUCOSE - POINT OF CARE Routine 01/23/2024 8:23 PM CDT TROPONIN-I HIGH SENSITIVE BASELINE + 1HR STAT 01/23/2024 8:04 PM CDT DIFFERENTIAL MANUAL Routine 01/23/2024 8 :04 PM CDT CBC W AUTO DIFFERENTIAL Routine 01/23/2024 8:04 PM CDT RENAL FUNCTION PANEL Routine 01/23/2024 8:04 PM CDT MAGNESIUM BLOOD Routine 01/23/2024 8:04 PM CDT MRSA DNA PCR STAT 01/23/2024 8:03 PM CDT XR CHEST 1VW PORTABLE STAT 01/23/2024 7:14 PM CDT Acute hypoxemic respiratory failure (HCC) GLUCOSE - POINT OF CARE Routine 01/23/2024 5:24 PM CDT BLOOD GASES ARTERIAL STAT 01/23/2024 5:14 PM CDT Altered mental status, unspecified altered mental status type IR CAROTID CEREBRAL ANGIOGRAM STAT 01/23/2024 4:55 PM CDT Altered mental status, unspecified altered mental status type Hypoxia Basilar artery thrombosis MRI BRAIN WO CONTRAST STAT 01/23/2024 12:49 PM CDT Altered mental status, unspecified altered mental status type XR CHEST POST PROCEDURE STAT 01/23/2024 11:53 AM CDT Hypoxia TROPONIN-I HIGH SENSITIVE REFLEX 1HOUR Timed 01/23/2024 11:52 AM CDT URINE DRUG SCREEN IMMUNOASSAY STAT 01/23/2024 11:46 AM CDT ED INTUBATION Routine 01/23/2024 11:39 AM CDT Hypoxia Basilar artery thrombosis Acute hypoxemic respiratory failure (HCC) XR CHEST 1VW PORTABLE STAT 01/23/2024 11:[address] ANGIO BRAIN NECK STROKE STAT 01/23/2024 10:57 AM CDT Altered mental status, unspecified altered mental status type Hypoxia BLOOD GASES ART + COOX PANEL STAT 01/23/2024 10:53 AM CDT EKG 12-LEAD STAT 01/23/2024 10:46 AM CDT Altered mental status, unspecified altered mental status type INR - POCT Routine 01/23/2024 10:45 AM CDT CREATININE - POCT INTERFACED Routine 01/23/2024 10:[address] BRAIN STROKE STAT 01/23/2024 10:39 AM CDT Altered mental status, unspecified altered mental status type TROPONIN-I HIGH SENSITIVE BASELINE + 1HR STAT 01/23/2024 10:39 AM CDT HEMOGLOBIN A1C Add on 01/23/2024 10:39 AM CDT TYPE + SCREEN PANEL STAT 01/23/2024 1 0:39 AM CDT PTT STAT 01/23/2024 10:39 AM CDT PT-INR STAT 01/23/2024 10:39 AM CDT SLIDE SCAN HEMATOLOGY STAT 01/23/2024 10:39 AM CDT CBC W AUTO DIFFERENTIAL STAT 01/23/2024 10:39 AM CDT COMPREHENSIVE METABOLIC PANEL STAT 01/23/2024 10:39 AM CDT CK BLOOD Add on 01/23/2024 10:39 AM CDT ALCOHOL ETHYL BLOOD STAT 01/23/2024 1 0:39 AM CDT documented in this encounter Results * CARDIAC RHYTHM STRIP ORDER (02/18/2024 7:29 PM CDT) Narrative 02/18/2024 7:29 PM CDT Ordered by an unspecified provider. Scanned Document CARDIAC SERVICES ORD ERABLES * (ABNORMAL) GLUCOSE - POINT OF CARE (02/15/2024 5:13 PM CDT) Glucose WB/POC 205(H) 70 - 106 mg/dL 02/15/2024 5:13 PM CDT [facility] Specimen Type Cap Fingerstick 2023 5:13 PM CDT [facility] Blood BLOOD SPECIMEN / Unknown 02/15/2024 5:13 PM CDT 02/15/2024 5:13 PM CDT Sherie Beltre MD LAB - POINT OF CARE ORDERABLES Performing Organization Address City/State/[facility] Co de Phone Number [facility] [address] [place] [address] * (ABNORMAL) GLUCOSE - POINT OF CARE (02/15/2024 12:09 PM CDT) Glucose WB/POC 186(H) 70 - 106 mg/dL 02/16/2024 2:16 AM CDT [facility] Specimen Type Cap Fingerstick 2023 2:16 AM CDT [facility] Blood BLOOD SPECIMEN / Unknown 02/15/2024 12:09 PM CDT 02/16/2024 2:16 AM CDT Sherie Beltre MD LAB - POINT OF CARE ORDERABLES Performing Organization Address City/[facility]/ZIP Co de Phone Number [facility] [address] [place] [address] [phone] * (ABNORMAL) GLUCOSE - POINT OF CARE (02/15/2024 5:32 AM CDT) Glucose WB/POC 175(H) 70 - 106 mg/dL 02/16/2024 2:16 AM CDT [facility] Specimen Type Venous 02/16/2024 2:16 AM CDT [facility] Blood BLOOD SPECIMEN / Unknown 02/15/2024 5:32 AM CDT 02/16/2024 2:16 AM CDT Sherie Beltre MD LAB - POINT OF CARE ORDERABLES Performing Organization Address [facility] Co de Phone Number [facility] [address] [place] [phone] * (ABNORMAL) CBC W AUTO DIFFERENTIAL (02/15/2024 4:23 AM CDT) WBC 11.1(H) 4.0 - 10.7 x10E9/L 02/15/2024 4:43 AM CDT [facility] RBC Count 3.53(L) 4.30 - 5.80 x10E12/L 02/15/2024 4:43 AM CDT [facility] Hemoglobin 10.3(L) 13.3 - 17.5 g/dL 02/15/2024 4:43 AM CDT [facility] Hematocrit 32.3(L) 38.7 - 51.1 % 02/15/2024 4:43 AM CDT [facility] MCV 91.5 80.0 - 98.0 fL 02/15/2024 4:43 AM CDT [facility] MCH 29.2 26.7 - 33.6 pg 02/15/2024 4:43 AM CDT [facility] MCHC 31.9 31.7 - 36.3 g/dL 02/15/2024 4:43 AM CDT [facility] RDW-CV 14.6 11.3 - 14.8 % 02/15/2024 4:43 AM CDT [facility] Platelet Count 319 150 - 420 x10E9/L 02/15/2024 4:43 AM CDT [facility] MPV 9.4 7.8 - 11.4 fL 02/15/2024 4:43 AM CDT [facility] Neutrophil % 62.3 41.0 - 74.0 % 02/15/2024 4:43 AM CDT [facility] Lymphocyte % 25.0 17.0 - 47.0 % 02/15/2024 4:43 AM CDT [facility] Monocyte % 9.1 3.0 - 11.0 % 02/15/2024 4:43 AM CDT [facility] Eosinophil % 2.2 0.0 - 7.0 % 02/15/2024 4:43 AM CDT [facility] Basophil % 0.3 0.0 - 1.6 % 02/15/2024 4:43 AM CDT [facility] Immature Granulocytes % 1.1(H) 0.0 - 1.0 % 02/15/2024 4:43 AM CDT [facility] Neutrophil Absolute 6.94 1.60 - 7.50 x10E9/L 02/15/2024 4:43 AM CDT [facility] Lymphocyte Absolute 2.79 1.00 - 4.40 x10E9/L 02/15/2024 4:43 AM CDT [facility] Monocyte Absolute 1.01(H) 0.15 - 1.00 x10E9/L 02/15/2024 4:43 AM CDT [facility] Eosinophil Absolute 0.25 0.00 - 0.60 x10E9/L 02/15/2024 4:43 AM CDT [facility] Basophil Absolute 0.03 0.00 - 0.13 x10E9/L 02/15/2024 4:43 AM CDT [facility] Blood BLOOD SPECIMEN / Unknown Venipuncture / Unknown 02/15/2024 4:23 AM CDT 02/15/2024 4:36 AM CDT Chuy Siegel DO LAB - HEMATOLOGY ORD ERABLES [facility] [address] [place] [address] * (ABNORMAL) BASIC METABOLIC PANEL (CALCIUM TOTAL) (02/15/2024 4:23 AM CDT) Glucose 141(H) 70 - 105 mg/dL 02/15/2024 5:11 AM CDT [facility] Sodium 140 136 - 145 mmol/L 02/15/2024 5:11 AM CDT [facility] Potassium 4.2 3.5 - 5.1 mmol/L 02/15/2024 5:11 AM CDT [facility] Chloride 101 98 - 107 mmol/L 02/15/2024 5:11 AM CDT [facility] CO2 24 22 - 29 mmol/L 02/15/2024 5:11 AM CDT [facility] Calcium 9.8 8.4 - 10.4 mg/dL 02/15/2024 5:11 AM CDT [facility] Anion Gap 15 6 - 16 mmol/L 02/15/2024 5:11 AM CDT [facility] BUN 42(H) 7 - 26 mg/dL 02/15/2024 5:11 AM CDT [facility] Creatinine 0.90 0.72 - 1.25 mg/dL 02/15/2024 5:11 AM T [facility] eGFR by CKD-EPI >90 >=90 mL/min/1.7 3 m2 02/15/2024 5:11 AM CDT [facility] Blood BLOOD SPECIMEN / Unknown Venipuncture / Unknown 02/15/2024 4:23 AM CDT 02/15/2024 4:36 AM CDT Chuy Siegel DO LAB - CHEMISTRY SARAHE DUNG [facility] [address] [place], [place] [id number] * (ABNORMAL) PHOSPHORUS BLOOD (02/15/2024 4:23 AM CDT) Phosphorus 5.4(H) 2.3 - 4.7 mg/dL 02/15/2024 5:11 AM CDT [facility] Blood BLOOD SPECIMEN / Unknown Venipuncture / Unknown 02/15/2024 4:23 AM CDT 02/15/2024 4:36 AM CDT Chuy Siegel DO LAB - CHEMISTRY CHRISTIAN RAZO Performing Organization Address [facility] Co de Phone Number [facility] [address] [place] [phone] * MAGNESIUM BLOOD (02/15/2024 4:23 AM CDT) Magnesium 1.8 1.6 - 2.6 mg/dL 02/15/2024 5:11 AM CDT [facility] Blood BLOOD SPECIMEN / Unknown Venipuncture / Unknown 02/15/2024 4:23 AM CDT 02/15/2024 4:36 AM CDT Chuyjessy Siegel LAB - CHEMISTRY CHRISTIAN RAZO Performing Organization Address [facility] de Phone Number [facility] [address] [place] [phone] * (ABNORMAL) GLUCOSE - POINT OF CARE (02/14/2024 11:55 PM CDT) Glucose WB/POC 152(H) 70 - 106 mg/dL 02/15/2024 12:00 AM CDT [facility] Specimen Type Venous 02/15/2024 12:00 AM CDT [facility] Blood BLOOD SPECIMEN / Unknown 02/14/2024 11:55 PM CDT 02/15/2024 12:00 AM CDT Sherie Beltre MD LAB - POINT OF CARE ORDERABLES Performing Organization Address [facility] Co de Phone Number [facility] [phone] [place] [phone] * (ABNORMAL) GLUCOSE - POINT OF CARE (02/14/2024 6:23 PM CDT) Glucose WB/POC 245(H) 70 - 106 mg/dL 02/14/2024 6:28 PM CDT [facility] Specimen Type Cap Fingerstick 2023 6:28 PM CDT [facility] Blood BLOOD SPECIMEN / Unknown 02/14/2024 6:23 PM CDT 02/14/2024 6:28 PM CDT Sherie Beltre MD LAB - POINT OF CARE ORDERABLES [facility] [address] [place] [address] * (ABNORMAL) RENAL FUNCTION PANEL (02/14/2024 4:10 PM CDT) Pathologist [facility] Glucose 253(H) 70 - 105 mg/dL 02/14/2024 4:32 PM CDT [facility] Sodium 135(L) 136 - 145 mmol/L 02/14/2024 4:32 PM CDT [facility] Potassium 4.2 3.5 - 5.1 mmol/L 02/14/2024 4:32 PM CDT [facility] Chloride 104 98 - 107 mmol/L 02/14/2024 4:32 PM CDT [facility] CO2 22 22 - 29 mmol/L 02/14/2024 4:32 PM CDT [facility] Calcium 10.0 8.4 - 10.4 mg/dL 02/14/2024 4:32 PM CDT [facility] Anion Gap 9 6 - 16 mmol/L 02/14/2024 4:32 PM CDT [facility] BUN 38(H) 7 - 26 mg/dL 02/14/2024 4:32 PM CDT [facility] Creatinine 0.95 0.72 - 1.25 mg/dL 02/14/2024 4:32 PM CDT [facility] Albumin 2.6(L) 3.4 - 5.0 gm/dL 02/14/2024 4:32 PM CDT [facility] Phosphorus 5.2(H) 2.3 - 4.7 mg/dL 02/14/2024 4:32 PM CDT [facility] eGFR by CKD-EPI 89(L) >=90 mL/min/1.7 3 m2 02/14/2024 4:32 PM CDT [facility] Blood BLOOD SPECIMEN / Unknown Venipuncture / Unknown 02/14/2024 4:10 PM CDT 02/14/2024 4:15 PM CDT Andrea Zamorano MD LAB - CHEMISTRY CHRISTIAN RAZO Performing Organization Address [facility] Co de Phone Number [facility] [address] [place] [address] [phone] * (ABNORMAL) GLUCOSE - POINT OF CARE (02/14/2024 12:24 PM CDT) Glucose WB/POC 209(H) 70 - 106 mg/dL 02/14/2024 12:29 PM CDT [facility] Specimen Type Cap Fingerstick 2023 12:29 PM CDT [facility] Blood BLOOD SPECIMEN / Unknown 02/14/2024 12:24 PM CDT 02/14/2024 12:29 PM CDT Sherie Beltre MD LAB - POINT OF CARE ORDERABLES Performing Organization Address [facility] de Phone Number [facility] [address] [place] [phone] * (ABNORMAL) GLUCOSE - POINT OF CARE (02/14/2024 5:31 AM CDT) Glucose WB/POC 185(H) 70 - 106 mg/dL 02/14/2024 5:40 AM CDT [facility] Specimen Type Cap Fingerstick 2023 5:40 AM CDT [facility] Blood BLOOD SPECIMEN / Unknown 02/14/2024 5:31 AM CDT 02/14/2024 5:40 AM CDT Sherie Beltre MD LAB - POINT OF CARE ORDERABLES Performing Organization Address [facility] Co de Phone Number [facility] [address] [place] [address] [phone] * (ABNORMAL) CBC W AUTO DIFFERENTIAL (02/14/2024 4:29 AM CDT) WBC 9.7 4.0 - 10.7 x10E9/L 02/14/2024 4:42 AM CDT [facility] RBC Count 3.18(L) 4.30 - 5.80 x10E12/L 02/14/2024 4:42 AM CDT [facility] Hemoglobin 9.1(L) 13.3 - 17.5 g/dL 02/14/2024 4:42 AM CDT [facility] Hematocrit 29.4(L) 38.7 - 51.1 % 02/14/2024 4:42 AM CDT [facility] MCV 92.5 80.0 - 98.0 fL 02/14/2024 4:42 AM CDT [facility] MCH 28.6 26.7 - 33.6 pg 02/14/2024 4:42 AM CDT [facility] MCHC 31.0(L) 31.7 - 36.3 g/dL 02/14/2024 4:42 AM CDT [facility] RDW-CV 14.4 11.3 - 14.8 % 02/14/2024 4:42 AM CDT [facility] Platelet Count 326 150 - 420 x10E9/L 02/14/2024 4:42 AM CDT [facility] MPV 9.1 7.8 - 11.4 fL 02/14/2024 4:42 AM CDT [facility] Neutrophil % 64.2 41.0 - 74.0 % 02/14/2024 4:42 AM CDT [facility] Lymphocyte % 22.2 17.0 - 47.0 % 02/14/2024 4:42 AM CDT [facility] Monocyte % 9.0 3.0 - 11.0 % 02/14/2024 4:42 AM CDT [facility] Eosinophil % 3.2 0.0 - 7.0 % 02/14/2024 4:42 AM CDT [facility] Basophil % 0.3 0.0 - 1.6 % 02/14/2024 4:42 AM CDT [facility] Immature Granulocytes % 1.1(H) 0.0 - 1.0 % 02/14/2024 4:42 AM CDT [facility] Neutrophil Absolute 6.25 1.60 - 7.50 x10E9/L 02/14/2024 4:42 AM CDT [facility] Lymphocyte Absolute 2.16 1.00 - 4.40 x10E9/L 02/14/2024 4:42 AM CDT [facility] Monocyte Absolute 0.88 0.15 - 1.00 x10E9/L 02/14/2024 4:42 AM CDT [facility] Eosinophil Absolute 0.31 0.00 - 0.60 x10E9/L 02/14/2024 4:42 AM CDT [facility] Basophil Absolute 0.03 0.00 - 0.13 x10E9/L 02/14/2024 4:42 AM CDT [facility] Blood BLOOD SPECIMEN / Unknown Line Draw / Unknown 02/14/2024 4:29 AM CDT 02/14/2024 4:34 AM CDT Chuy Siegel DO LAB - HEMATOLOGY ORD ERABLES [facility] [address] [place] [address] * (ABNORMAL) BASIC METABOLIC PANEL (CALCIUM TOTAL) (02/14/2024 4:29 AM CDT) Pathologist [facility] Glucose 182(H) 70 - 105 mg/dL 02/14/2024 5:00 AM CDT [facility] Sodium 137 136 - 145 mmol/L 02/14/2024 5:00 AM T [facility] Potassium 4.2 3.5 - 5.1 mmol/L 02/14/2024 5:00 AM T [facility] Chloride 106 98 - 107 mmol/L 02/14/2024 5:00 AM T [facility] CO2 23 22 - 29 mmol/L 02/14/2024 5:00 AM CDT [facility] Calcium 9.2 8.4 - 10.4 mg/dL 02/14/2024 5:00 AM T [facility] Anion Gap 8 6 - 16 mmol/L 02/14/2024 5:00 AM T [facility] BUN 36(H) 7 - 26 mg/dL 02/14/2024 5:00 AM T [facility] Creatinine 0.85 0.72 - 1.25 mg/dL 02/14/2024 5:00 AM T [facility] eGFR by CKD-EPI >90 >=90 mL/min/1.7 3 m2 02/14/2024 5:00 AM CDT [facility] Blood BLOOD SPECIMEN / Unknown Line Draw / Unknown 02/14/2024 4:29 AM CDT 02/14/2024 4:34 AM CDT Chuy Siegel DO LAB - CHEMISTRY CHRISTIAN RAZO Performing Organization Address [facility] Co de Phone Number [facility] [id number] [place] [phone] * PHOSPHORUS BLOOD (02/14/2024 4:29 AM CDT) Phosphorus 4.7 2.3 - 4.7 mg/dL 02/14/2024 5:00 AM CDT [facility] Blood BLOOD SPECIMEN / Unknown Line Draw / Unknown 02/14/2024 4:29 AM CDT 02/14/2024 4:34 AM CDT Chuy Siegel LAB - CHEMISTRY CHRISTIAN RAZO Performing Organization Address [facility] de Phone Number [facility] [address] [place] [phone] * (ABNORMAL) MAGNESIUM BLOOD (02/14/2024 4:29 AM CDT) Magnesium 1.4(L) 1.6 - 2.6 mg/dL 02/14/2024 5:00 AM CDT [facility] Blood BLOOD SPECIMEN / Unknown Line Draw / Unknown 02/14/2024 4:29 AM CDT 02/14/2024 4:34 AM CDT Chuy Siegel DO LAB - CHEMISTRY CHRISTIAN RAZO Performing Organization Address [facility] de Phone Number [facility] [id number] [place] [phone] * (ABNORMAL) GLUCOSE - POINT OF CARE (02/13/2024 11:52 PM CDT) Glucose WB/POC 171(H) 70 - 106 mg/dL 02/13/2024 11:55 PM CDT [facility] Specimen Type Cap Fingerstick 2023 11:55 PM CDT [facility] Blood BLOOD SPECIMEN / Unknown 02/13/2024 11:52 PM CDT 02/13/2024 11:55 PM CDT Sherie Beltre MD LAB - POINT OF CARE ORDERABLES Performing Organization Address [facility] Co de Phone Number [facility] [phone] [place] [phone] * (ABNORMAL) GLUCOSE - POINT OF CARE (02/13/2024 6:37 PM CDT) Glucose WB/POC 186(H) 70 - 106 mg/dL 02/13/2024 7:39 PM CDT [facility] Specimen Type Cap Fingerstick 2023 7:39 PM CDT [facility] Blood BLOOD SPECIMEN / Unknown 02/13/2024 6:37 PM CDT 02/13/2024 7:39 PM CDT Sherie Beltre MD LAB - POINT OF CARE ORDERABLES Performing Organization Address [facility] de Phone Number [facility] [address] [place] [phone] * (ABNORMAL) GLUCOSE - POINT OF CARE (02/13/2024 12:24 PM CDT) Glucose WB/POC 179(H) 70 - 106 mg/dL 02/13/2024 12:29 PM CDT [facility] Specimen Type Cap Fingerstick 2023 12:29 PM CDT [facility] Blood BLOOD SPECIMEN / Unknown 02/13/2024 12:24 PM CDT 02/13/2024 12:29 PM CDT Sherie Beltre MD LAB - POINT OF CARE ORDERABLES Performing Organization Address [facility]/ZIP Co de Phone Number [facility] [phone] [place] [phone] * (ABNORMAL) GLUCOSE - POINT OF CARE (02/13/2024 5:52 AM CDT) Pathologist [facility] Glucose WB/POC 185(H) 70 - 106 mg/dL 02/13/2024 5:53 AM CDT [facility] Specimen Type Cap Fingerstick 2023 5:53 AM CDT [facility] Blood BLOOD SPECIMEN / Unknown 02/13/2024 5:52 AM CDT 02/13/2024 5:53 AM CDT Sherie Beltre MD LAB - POINT OF CARE ORDERABLES Performing Organization Address City/[facility]/ZIP Co de Phone Number [facility] [id number] [place] [phone] * SLIDE SCAN HEMATOLOGY (02/13/2024 4:29 AM CDT) Pathologist [facility] RBC Morphology NORMAL 02/13/2024 5:32 AM CDT [facility] Platelet Morphology NORMAL 02/13/2024 5:32 AM CDT [facility] Blood BLOOD SPECIMEN / Unknown Venipuncture / Unknown 02/13/2024 4:29 AM CDT 02/13/2024 4:44 AM CDT Chuy Siegel DO LAB - HEMATOLOGY ORD ERABLES Performing Organization Address [facility] Co de Phone Number [facility] [address] [place] [address] * (ABNORMAL) CBC W AUTO DIFFERENTIAL (02/13/2024 4:29 AM CDT) Pathologist [facility] WBC 11.6(H) 4.0 - 10.7 x10E9/L 02/13/2024 5:32 AM CDT [facility] RBC Count 3.28(L) 4.30 - 5.80 x10E12/L 02/13/2024 5:32 AM CDT [facility] Hemoglobin 9.7(L) 13.3 - 17.5 g/dL 02/13/2024 5:32 AM CDT [facility] Hematocrit 30.3(L) 38.7 - 51.1 % 02/13/2024 5:32 AM CDT [facility] MCV 92.4 80.0 - 98.0 fL 02/13/2024 5:32 AM CDT [facility] MCH 29.6 26.7 - 33.6 pg 02/13/2024 5:32 AM CDT [facility] MCHC 32.0 31.7 - 36.3 g/dL 02/13/2024 5:32 AM CDT [facility] RDW-CV 14.5 11.3 - 14.8 % 02/13/2024 5:32 AM CDT [facility] Platelet Count 362 150 - 420 x10E9/L 02/13/2024 5:32 AM CDT [facility] MPV 10.4 7.8 - 11.4 fL 02/13/2024 5:32 AM CDT [facility] Neutrophil % 63.4 41.0 - 74.0 % 02/13/2024 5:32 AM CDT [facility] Lymphocyte % 22.3 17.0 - 47.0 % 02/13/2024 5:32 AM CDT [facility] Monocyte % 9.2 3.0 - 11.0 % 02/13/2024 5:32 AM CDT [facility] Eosinophil % 3.6 0.0 - 7.0 % 02/13/2024 5:32 AM CDT [facility] Basophil % 0.3 0.0 - 1.6 % 02/13/2024 5:32 AM CDT [facility] Immature Granulocytes % 1.2(H) 0.0 - 1.0 % 02/13/2024 5:32 AM CDT [facility] Neutrophil Absolute 7.34 1.60 - 7.50 x10E9/L 02/13/2024 5:32 AM CDT [facility] Lymphocyte Absolute 2.58 1.00 - 4.40 x10E9/L 02/13/2024 5:32 AM CDT [facility] Monocyte Absolute 1.06(H) 0.15 - 1.00 x10E9/L 02/13/2024 5:32 AM CDT [facility] Eosinophil Absolute 0.42 0.00 - 0.60 x10E9/L 02/13/2024 5:32 AM CDT [facility] Basophil Absolute 0.03 0.00 - 0.13 x10E9/L 02/13/2024 5:32 AM CDT [facility] Blood BLOOD SPECIMEN / Unknown Venipuncture / Unknown 02/13/2024 4:29 AM CDT 02/13/2024 4:44 AM CDT Chuy Siegel DO LAB - HEMATOLOGY ORD ERABLES Performing Organization Address [facility] Co de Phone Number [facility] [address] [place] [address] * (ABNORMAL) BASIC METABOLIC PANEL (CALCIUM TOTAL) (02/13/2024 4:29 AM CDT) [facility] Glucose 156(H) 70 - 105 mg/dL 02/13/2024 5:15 AM CDT [facility] Sodium 142 136 - 145 mmol/L 02/13/2024 5:15 AM CDT [facility] Potassium 4.6 3.5 - 5.1 mmol/L 02/13/2024 5:15 AM CDT [facility] Chloride 105 98 - 107 mmol/L 02/13/2024 5:15 AM CDT [facility] CO2 24 22 - 29 mmol/L 02/13/2024 5:15 AM CDT [facility] Calcium 8.7 8.4 - 10.4 mg/dL 02/13/2024 5:15 AM CDT [facility] Anion Gap 13 6 - 16 mmol/L 02/13/2024 5:15 AM CDT [facility] BUN 32(H) 7 - 26 mg/dL 02/13/2024 5:15 AM CDT [facility] Creatinine 0.79 0.72 - 1.25 mg/dL 02/13/2024 5:15 AM CDT [facility] eGFR by CKD-EPI >90 >=90 mL/min/1.7 3 m2 02/13/2024 5:15 AM CDT [facility] Blood BLOOD SPECIMEN / Unknown Venipuncture / Unknown 02/13/2024 4:29 AM CDT 02/13/2024 4:44 AM CDT Chuy Siegel DO LAB - CHEMISTRY ORDE RABLES Performing Organization Address [facility] Co de Phone Number [facility] [id number] [place] [address] [phone] * PHOSPHORUS BLOOD (02/13/2024 4:29 AM CDT) Pathologist [facility] Phosphorus 4.4 2.3 - 4.7 mg/dL 02/13/2024 5:15 AM CDT [facility] Blood BLOOD SPECIMEN / Unknown Venipuncture / Unknown 02/13/2024 4:29 AM CDT 02/13/2024 4:44 AM CDT Chuy Siegel DO LAB - CHEMISTRY ARTESIAAnirudh RAZO Performing Organization Address [facility] Co de Phone Number [facility] [address] [place] [phone] * MAGNESIUM BLOOD (02/13/2024 4:29 AM CDT) Pathologist [facility] Magnesium 1.8 1.6 - 2.6 mg/dL 02/13/2024 5:15 AM CDT [facility] Blood BLOOD SPECIMEN / Unknown Venipuncture / Unknown 02/13/2024 4:29 AM CDT 02/13/2024 4:44 AM CDT Chuy Siegel DO LAB - CHEMISTRY ARTESIAAnirudh RAZO Performing Organization Address [facility] de Phone Number [facility] [address] [place] [address] [phone] * (ABNORMAL) GLUCOSE - POINT OF CARE (02/12/2024 11:39 PM CDT) Pathologist [facility] Glucose WB/POC 163(H) 70 - 106 mg/dL 02/12/2024 11:40 PM CDT [facility] Specimen Type Cap Fingerstick 2023 11:40 PM CDT [facility] Blood BLOOD SPECIMEN / Unknown 02/12/2024 11:39 PM CDT 02/12/2024 11:40 PM CDT Sherie Beltre MD LAB - POINT OF CARE ORDERABLES Performing Organization Address [facility] de Phone Number [facility] [id number] [place] [address] [phone] * (ABNORMAL) GLUCOSE - POINT OF CARE (02/12/2024 6:06 PM CDT) Pathologist [facility] Glucose WB/POC 239(H) 70 - 106 mg/dL 02/12/2024 8:10 PM CDT [facility] Specimen Type Cap Fingerstick 2023 8:10 PM CDT [facility] Blood BLOOD SPECIMEN / Unknown 02/12/2024 6:06 PM CDT 02/12/2024 8:10 PM CDT Sherie Beltre MD LAB - POINT OF CARE ORDERABLES Performing Organization Address [facility] Co de Phone Number [facility] [address] [place] [address] [phone] * (ABNORMAL) GLUCOSE - POINT OF CARE (02/12/2024 12:30 PM CDT) Pathologist [facility] Glucose WB/POC 167(H) 70 - 106 mg/dL 02/12/2024 12:34 PM CDT [facility] Specimen Type Cap Fingerstick 2023 12:34 PM CDT [facility] Blood BLOOD SPECIMEN / Unknown 02/12/2024 12:30 PM CDT 02/12/2024 12:34 PM CDT Sherie Beltre MD LAB - POINT OF CARE ORDERABLES Performing Organization Address [facility] Co de Phone Number [facility] [id number] [place] [phone] * (ABNORMAL) CBC W AUTO DIFFERENTIAL (02/12/2024 4:58 AM CDT) Pathologist [facility] WBC 10.0 4.0 - 10.7 x10E9/L 02/12/2024 5:16 AM CDT [facility] RBC Count 3.17(L) 4.30 - 5.80 x10E12/L 02/12/2024 5:16 AM CDT [facility] Hemoglobin 9.3(L) 13.3 - 17.5 g/dL 02/12/2024 5:16 AM CDT [facility] Hematocrit 29.0(L) 38.7 - 51.1 % 02/12/2024 5:16 AM CDT [facility] MCV 91.5 80.0 - 98.0 fL 02/12/2024 5:16 AM CDT [facility] MCH 29.3 26.7 - 33.6 pg 02/12/2024 5:16 AM CDT [facility] MCHC 32.1 31.7 - 36.3 g/dL 02/12/2024 5:16 AM CDT [facility] RDW-CV 14.4 11.3 - 14.8 % 02/12/2024 5:16 AM CDT [facility] Platelet Count 363 150 - 420 x10E9/L 02/12/2024 5:16 AM CDT [facility] MPV 9.6 7.8 - 11.4 fL 02/12/2024 5:16 AM CDT [facility] Neutrophil % 62.1 41.0 - 74.0 % 02/12/2024 5:16 AM CDT [facility] Lymphocyte % 24.6 17.0 - 47.0 % 02/12/2024 5:16 AM CDT [facility] Monocyte % 8.2 3.0 - 11.0 % 02/12/2024 5:16 AM CDT [facility] Eosinophil % 4.1 0.0 - 7.0 % 02/12/2024 5:16 AM CDT [facility] Basophil % 0.1 0.0 - 1.6 % 02/12/2024 5:16 AM CDT [facility] Immature Granulocytes % 0.9 0.0 - 1.0 % 02/12/2024 5:16 AM CDT [facility] Neutrophil Absolute 6.19 1.60 - 7.50 x10E9/L 02/12/2024 5:16 AM CDT [facility] Lymphocyte Absolute 2.45 1.00 - 4.40 x10E9/L 02/12/2024 5:16 AM CDT [facility] Monocyte Absolute 0.82 0.15 - 1.00 x10E9/L 02/12/2024 5:16 AM CDT [facility] Eosinophil Absolute 0.41 0.00 - 0.60 x10E9/L 02/12/2024 5:16 AM CDT [facility] Basophil Absolute 0.01 0.00 - 0.13 x10E9/L 02/12/2024 5:16 AM CDT [facility] Blood BLOOD SPECIMEN / Unknown Venipuncture / Unknown 02/12/2024 4:58 AM CDT 02/12/2024 5:03 AM CDT Chuy Siegel DO LAB - HEMATOLOGY ORD ERABLES [facility] [address] [place] [address] * (ABNORMAL) BASIC METABOLIC PANEL (CALCIUM TOTAL) (02/12/2024 4:58 AM CDT) Glucose 166(H) 70 - 105 mg/dL 02/12/2024 5:32 AM CDT [facility] Sodium 140 136 - 145 mmol/L 02/12/2024 5:32 AM CDT [facility] Potassium 3.9 3.5 - 5.1 mmol/L 02/12/2024 5:32 AM CDT [facility] Chloride 112(H) 98 - 107 mmol/L 02/12/2024 5:32 AM CDT [facility] CO2 24 22 - 29 mmol/L 02/12/2024 5:32 AM CDT [facility] Calcium 9.3 8.4 - 10.4 mg/dL 02/12/2024 5:32 AM CDT [facility] Anion Gap 4(L) 6 - 16 mmol/L 02/12/2024 5:32 AM CDT [facility] BUN 27(H) 7 - 26 mg/dL 02/12/2024 5:32 AM CDT [facility] Creatinine 0.82 0.72 - 1.25 mg/dL 02/12/2024 5:32 AM CDT [facility] eGFR by CKD-EPI >90 >=90 mL/min/1.7 3 m2 02/12/2024 5:32 AM CDT [facility] Blood BLOOD SPECIMEN / Unknown Venipuncture / Unknown 02/12/2024 4:58 AM CDT 02/12/2024 5:03 AM CDT Chuy Siegel DO LAB - CHEMISTRY CHRISTIAN RAZO Performing Organization Address [facility] Co de Phone Number [facility] [phone] [place] [address] [phone] * PHOSPHORUS BLOOD (02/12/2024 4:58 AM CDT) Phosphorus 4.6 2.3 - 4.7 mg/dL 02/12/2024 5:32 AM CDT [facility] Blood BLOOD SPECIMEN / Unknown Venipuncture / Unknown 02/12/2024 4:58 AM CDT 02/12/2024 5:03 AM CDT Chuy Siegel DO LAB - CHEMISTRY CHRISTIAN RAZO Performing Organization Address [facility] de Phone Number [facility] [address] [place] [phone] * MAGNESIUM BLOOD (02/12/2024 4:58 AM CDT) Magnesium 1.6 1.6 - 2.6 mg/dL 02/12/2024 5:32 AM CDT [facility] Blood BLOOD SPECIMEN / Unknown Venipuncture / Unknown 02/12/2024 4:58 AM CDT 02/12/2024 5:03 AM CDT Chuy Siegel DO LAB - CHEMISTRY CHRISTIAN RAZO Performing Organization Address [facility] de Phone Number [facility] [id number] [place] [phone] * (ABNORMAL) GLUCOSE - POINT OF CARE (02/12/2024 12:03 AM CDT) Glucose WB/POC 166(H) 70 - 106 mg/dL 02/12/2024 12:04 AM CDT [facility] Specimen Type Cap Fingerstick 2023 12:04 AM CDT [facility] Blood BLOOD SPECIMEN / Unknown 02/12/2024 12:03 AM CDT 02/12/2024 12:04 AM CDT Sherie Beltre MD LAB - POINT OF CARE ORDERABLES Performing Organization Address [facility] Co de Phone Number [facility] [address] [place] [phone] * (ABNORMAL) GLUCOSE - POINT OF CARE (02/11/2024 5:07 PM CDT) Glucose WB/POC 213(H) 70 - 106 mg/dL 02/11/2024 5:13 PM CDT [facility] Specimen Type Cap Fingerstick 2023 5:13 PM CDT [facility] Blood BLOOD SPECIMEN / Unknown 02/11/2024 5:07 PM CDT 02/11/2024 5:13 PM CDT Shreie Beltre MD LAB - POINT OF CARE ORDERABLES Performing Organization Address [facility] de Phone Number [facility] [address] [place] [phone] * (ABNORMAL) GLUCOSE - POINT OF CARE (02/11/2024 12:30 PM CDT) Glucose WB/POC 163(H) 70 - 106 mg/dL 02/11/2024 12:32 PM CDT [facility] Specimen Type Cap Fingerstick 2023 12:32 PM CDT [facility] Blood BLOOD SPECIMEN / Unknown 02/11/2024 12:30 PM CDT 02/11/2024 12:32 PM CDT Sherie Beltre MD LAB - POINT OF CARE ORDERABLES Performing Organization Address [facility] Co de Phone Number [facility] [address] [place] [phone] * (ABNORMAL) GLUCOSE - POINT OF CARE (02/11/2024 6:08 AM CDT) Glucose WB/POC 207(H) 70 - 106 mg/dL 02/11/2024 6:12 AM CDT [facility] Specimen Type Cap Fingerstick 2023 6:12 AM CDT [facility] Blood BLOOD SPECIMEN / Unknown 02/11/2024 6:08 AM CDT 02/11/2024 6:12 AM CDT Sherie Beltre MD LAB - POINT OF CARE ORDERABLES [facility] [address] [place] [address] * (ABNORMAL) CBC W AUTO DIFFERENTIAL (02/11/2024 4:02 AM CDT) WBC 10.3 4.0 - 10.7 x10E9/L 02/11/2024 4:26 AM CDT [facility] RBC Count 3.07(L) 4.30 - 5.80 x10E12/L 02/11/2024 4:26 AM CDT [facility] Hemoglobin 8.9(L) 13.3 - 17.5 g/dL 02/11/2024 4:26 AM CDT [facility] Hematocrit 28.4(L) 38.7 - 51.1 % 02/11/2024 4:26 AM CDT [facility] MCV 92.5 80.0 - 98.0 fL 02/11/2024 4:26 AM CDT [facility] MCH 29.0 26.7 - 33.6 pg 02/11/2024 4:26 AM CDT [facility] MCHC 31.3(L) 31.7 - 36.3 g/dL 02/11/2024 4:26 AM CDT [facility] RDW-CV 14.4 11.3 - 14.8 % 02/11/2024 4:26 AM CDT [facility] Platelet Count 391 150 - 420 x10E9/L 02/11/2024 4:26 AM CDT [facility] MPV 9.6 7.8 - 11.4 fL 02/11/2024 4:26 AM CDT [facility] Neutrophil % 55.6 41.0 - 74.0 % 02/11/2024 4:26 AM CDT [facility] Lymphocyte % 30.0 17.0 - 47.0 % 02/11/2024 4:26 AM CDT [facility] Monocyte % 9.6 3.0 - 11.0 % 02/11/2024 4:26 AM CDT [facility] Eosinophil % 3.4 0.0 - 7.0 % 02/11/2024 4:26 AM CDT [facility] Basophil % 0.3 0.0 - 1.6 % 02/11/2024 4:26 AM CDT [facility] Immature Granulocytes % 1.1(H) 0.0 - 1.0 % 02/11/2024 4:26 AM CDT [facility] Neutrophil Absolute 5.72 1.60 - 7.50 x10E9/L 02/11/2024 4:26 AM CDT [facility] Lymphocyte Absolute 3.09 1.00 - 4.40 x10E9/L 02/11/2024 4:26 AM CDT [facility] Monocyte Absolute 0.99 0.15 - 1.00 x10E9/L 02/11/2024 4:26 AM CDT [facility] Eosinophil Absolute 0.35 0.00 - 0.60 x10E9/L 02/11/2024 4:26 AM CDT [facility] Basophil Absolute 0.03 0.00 - 0.13 x10E9/L 02/11/2024 4:26 AM CDT [facility] Blood BLOOD SPECIMEN / Unknown Venipuncture / Unknown 02/11/2024 4:02 AM CDT 02/11/2024 4:18 AM CDT Chuy Siegel DO LAB - HEMATOLOGY ORD ERABLES [facility] [address] [place] [address] * (ABNORMAL) BASIC METABOLIC PANEL (CALCIUM TOTAL) (02/11/2024 4:02 AM CDT) Pathologist [facility] Glucose 178(H) 70 - 105 mg/dL 02/11/2024 4:47 AM CDT [facility] Sodium 141 136 - 145 mmol/L 02/11/2024 4:47 AM CDT [facility] Potassium 4.4 3.5 - 5.1 mmol/L 02/11/2024 4:47 AM CDT [facility] Chloride 113(H) 98 - 107 mmol/L 02/11/2024 4:47 AM CDT [facility] CO2 23 22 - 29 mmol/L 02/11/2024 4:47 AM CDT [facility] Calcium 9.5 8.4 - 10.4 mg/dL 02/11/2024 4:47 AM CDT [facility] Anion Gap 5(L) 6 - 16 mmol/L 02/11/2024 4:47 AM CDT [facility] BUN 31(H) 7 - 26 mg/dL 02/11/2024 4:47 AM CDT [facility] Creatinine 0.75 0.72 - 1.25 mg/dL 02/11/2024 4:47 AM CDT [facility] eGFR by CKD-EPI >90 >=90 mL/min/1.7 3 m2 02/11/2024 4:47 AM CDT [facility] Blood BLOOD SPECIMEN / Unknown Venipuncture / Unknown 02/11/2024 4:02 AM CDT 02/11/2024 4:18 AM CDT Chuy Siegel DO [facility] - [facility] Performing Organization Address City/[facility] Co de Phone Number [facility] [address] [place] [address] * PHOSPHORUS BLOOD (02/11/2024 4:02 AM CDT) [facility] Phosphorus 4.5 2.3 - 4.7 mg/dL 02/11/2024 4:47 AM CDT [facility] Blood BLOOD SPECIMEN / Unknown Venipuncture / Unknown 02/11/2024 4:02 AM CDT 02/11/2024 4:18 AM CDT Chuy Siegel LAB - CHEMISTRY ORDE [facility] Performing Organization Address [facility] Co de Phone Number [facility] [address] [place] [address] * MAGNESIUM BLOOD (02/11/2024 4:02 AM CDT) Magnesium 1.8 1.6 - 2.6 mg/dL 02/11/2024 4:47 AM CDT [facility] Blood BLOOD SPECIMEN / Unknown Venipuncture / Unknown 02/11/2024 4:02 AM CDT 02/11/2024 4:18 AM CDT Chuy Siegel DO LAB - CHEMISTRY CHRISTIAN RAZO Performing Organization Address [facility] Co de Phone Number [facility] [phone] [place] [phone] * (ABNORMAL) GLUCOSE - POINT OF CARE (02/11/2024 12:33 AM CDT) Pathologist [facility] Glucose WB/POC 179(H) 70 - 106 mg/dL 02/11/2024 12:38 AM CDT [facility] Specimen Type Cap Fingerstick 2023 12:38 AM CDT [facility] Blood BLOOD SPECIMEN / Unknown 02/11/2024 12:33 AM CDT 02/11/2024 12:38 AM CDT Sherie Beltre MD LAB - POINT OF CARE ORDERABLES Performing Organization Address [facility] Co de Phone Number [facility] [phone] [place] [phone] * (ABNORMAL) GLUCOSE - POINT OF CARE (02/10/2024 5:07 PM CDT) [facility] Glucose WB/POC 168(H) 70 - 106 mg/dL 02/10/2024 5:11 PM CDT [facility] Specimen Type Cap Fingerstick 2023 5:11 PM CDT [facility] Blood BLOOD SPECIMEN / Unknown 02/10/2024 5:07 PM CDT 02/10/2024 5:11 PM CDT Sherie Beltre MD LAB - POINT OF CARE ORDERABLES Performing Organization Address [facility]/ZIP Co de Phone Number [facility] [address] [place] [address] * (ABNORMAL) GLUCOSE - POINT OF CARE (02/10/2024 12:42 PM CDT) Glucose WB/POC 171(H) 70 - 106 mg/dL 02/10/2024 12:47 PM CDT [facility] Specimen Type Cap Fingerstick 2023 12:47 PM CDT [facility] Blood BLOOD SPECIMEN / Unknown 02/10/2024 12:42 PM CDT 02/10/2024 12:47 PM CDT Sherie Beltre MD LAB - POINT OF CARE ORDERABLES [facility] [address] [place] [phone] * XR CHEST 1VW PORTABLE (02/10/2024 11:26 AM CDT) Anatomical Region Laterality Modality Chest Radiographic Love ging 02/10/2024 11:3 3 AM CDT Impressions 02/10/2024 11:37 AM CDT IMPRESSION: 1. Tracheostomy appliance seen at the superior chest. 2. Left central venous catheter which is unchanged in position. > Interpreting Provider: Jean Carlos Sultana MD on 02/10/2024 11:37 AM Narrative 02/10/2024 11:37 AM CDT PROCEDURE: ??XR CHEST 1VW PORTABLE, DATE/TIME OF EXAM: ??02/10/2024 11:26 AM, LOCATION ??[facility] INDICATION: Z93.0: Tracheostomy status ([facility]) HISTORY: Tracheostomy. COMPARISON: Chest radiograph from earlier the same date PROCEDURE: ??XR CHEST 1VW PORTABLE FINDINGS: A portable view of the chest was done. The heart size is borderline enlarged. There is findings of previous median sternotomy. There is a left central venous catheter again seen. There is a tracheostomy appliance projecting over the superior central chest. Procedure Note Jean Carlos Sultana MD - 02/10/2024 PROCEDURE: XR CHEST 1VW PORTABLE, DATE/TIME OF EXAM: 02/10/2024 11:26AM, LOCATION [facility] INDICATION: 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) HISTORY: Tracheostomy. COMPARISON: Chest radiograph from earlier the same date PROCEDURE: XR CHEST 1VW PORTABLE FINDINGS: A portable view of the chest was done. The heart size is borderline enlarged. There is findings of previous median sternotomy. There is aleft central venous catheter again seen. There is a tracheostomy appliance projecting over the superior central chest. IMPRESSION: 1. Tracheostomy appliance seen at the superior chest. 2. Left central venous catheter which is unchanged in position. > Interpreting Provider: Jean Carlos Sultana MD on 02/10/2024 11:37 AM Chuy Siegel DO DIAGNOSTIC IMAGING O RDERABLES * XR CHEST 1VW PORTABLE (02/10/2024 9:40 AM CDT) Anatomical Region Laterality Modality Chest Radiographic Love ging 02/14/2024 7:38 PM CDT Narrative 02/14/2024 7:38 PM CDT PROCEDURE(s): XR CHEST 1VW PORTABLE DATE AND TIME OF EXAM(s): 02/10/2024 9:56 AM INDICATION(s): R09.02: Hypoxemia A49.01: Methicillin susceptible Staphylococcus aureus infection, unspecified site COMPARISON(s): Chest radiograph dated 02/05/2024. FINDINGS: A tracheostomy tube is seen. Median sternotomy wires are seen. A left IJ approach and venous catheter suggestive terminating at the cavoatrial junction. The cardiomediastinal silhouette is unremarkable. The lungs demonstrate mild diffuse prominence of interstitial markings which could represent minimal infiltrate or edema but may represent chronic interstitial changes. No pneumothorax or pleural effusion is seen. No acute osseous abnormalities are seen. > Interpreting Provider: Katie Rodriguez MD on 02/14/2024 7:38 PM Procedure Note Katie Rodriguez MD - 02/14/2024 PROCEDURE(s): XR CHEST 1VW PORTABLE DATE AND TIME OF EXAM(s): 02/10/2024 9:56 AM INDICATION(s): R09.02: Hypoxemia A49.01: Methicillin susceptible Staphylococcus aureus infection, unspecified site COMPARISON(s): Chest radiograph dated 02/05/2024. FINDINGS: A tracheostomy tube is seen. Median sternotomy wires are seen.A left IJ approach and venous catheter suggestive terminating at the cavoatrial junction. The cardiomediastinal silhouette is unremarkable.The lungs demonstrate mild diffuse prominence of interstitial markings which could represent minimal infiltrate or edema but may represent chronic interstitial changes. No pneumothorax or pleural effusion is seen. Noacute osseous abnormalities are seen. > Interpreting Provider: Katie Rodriguez MD on 02/14/2024 7:38 PM Chuy Siegel DO DIAGNOSTIC IMAGING O RDERABLES * (ABNORMAL) GLUCOSE - POINT OF CARE (02/10/2024 6:14 AM CDT) [facility] Glucose WB/POC 214(H) 70 - 106 mg/dL 02/10/2024 6:25 AM CDT [facility] Specimen Type Cap Fingerstick 2023 6:25 AM CDT [facility] Blood BLOOD SPECIMEN / Unknown 02/10/2024 6:14 AM CDT 02/10/2024 6:25 AM CDT Sherie Beltre MD LAB - POINT OF CARE ORDERABLES Performing Organization Address City/State/[facility] Co de Phone Number [facility] [address] [place] [address] * (ABNORMAL) CBC W AUTO DIFFERENTIAL (02/10/2024 3:24 AM CDT) [facility] WBC 9.9 4.0 - 10.7 x10E9/L 02/10/2024 3:52 AM CDT [facility] RBC Count 2.98(L) 4.30 - 5.80 x10E12/L 02/10/2024 3:52 AM CDT [facility] Hemoglobin 8.6(L) 13.3 - 17.5 g/dL 02/10/2024 3:52 AM CDT [facility] Hematocrit 27.6(L) 38.7 - 51.1 % 02/10/2024 3:52 AM CDT [facility] MCV 92.6 80.0 - 98.0 fL 02/10/2024 3:52 AM CDT [facility] MCH 28.9 26.7 - 33.6 pg 02/10/2024 3:52 AM CDT [facility] MCHC 31.2(L) 31.7 - 36.3 g/dL 02/10/2024 3:52 AM CDT [facility] RDW-CV 14.2 11.3 - 14.8 % 02/10/2024 3:52 AM CDT [facility] Platelet Count 409 150 - 420 x10E9/L 02/10/2024 3:52 AM CDT [facility] MPV 9.7 7.8 - 11.4 fL 02/10/2024 3:52 AM CDT [facility] Neutrophil % 66.4 41.0 - 74.0 % 02/10/2024 3:52 AM CDT [facility] Lymphocyte % 17.8 17.0 - 47.0 % 02/10/2024 3:52 AM CDT [facility] Monocyte % 10.4 3.0 - 11.0 % 02/10/2024 3:52 AM CDT [facility] Eosinophil % 4.2 0.0 - 7.0 % 02/10/2024 3:52 AM CDT [facility] Basophil % 0.2 0.0 - 1.6 % 02/10/2024 3:52 AM CDT [facility] Immature Granulocytes % 1.0 0.0 - 1.0 % 02/10/2024 3:52 AM CDT [facility] Neutrophil Absolute 6.55 1.60 - 7.50 x10E9/L 02/10/2024 3:52 AM CDT [facility] Lymphocyte Absolute 1.75 1.00 - 4.40 x10E9/L 02/10/2024 3:52 AM CDT [facility] Monocyte Absolute 1.02(H) 0.15 - 1.00 x10E9/L 02/10/2024 3:52 AM CDT [facility] Eosinophil Absolute 0.41 0.00 - 0.60 x10E9/L 02/10/2024 3:52 AM CDT [facility] Basophil Absolute 0.02 0.00 - 0.13 x10E9/L 02/10/2024 3:52 AM CDT [facility] Blood BLOOD SPECIMEN / Unknown Venipuncture / Unknown 02/10/2024 3:24 AM CDT 02/10/2024 3:45 AM CDT Chuy Siegel DO LAB - HEMATOLOGY ORD ERABLES Performing Organization Address [facility]/ZIP Co de Phone Number [facility] [address] [place] [address] * (ABNORMAL) BASIC METABOLIC PANEL (CALCIUM TOTAL) (02/10/2024 3:24 AM CDT) [facility] Glucose 126(H) 70 - 105 mg/dL 02/10/2024 4:13 AM CDT [facility] Sodium 143 136 - 145 mmol/L 02/10/2024 4:13 AM CDT [facility] Potassium 3.6 3.5 - 5.1 mmol/L 02/10/2024 4:13 AM CDT [facility] Chloride 112(H) 98 - 107 mmol/L 02/10/2024 4:13 AM CDT [facility] CO2 23 22 - 29 mmol/L 02/10/2024 4:13 AM CDT [facility] Calcium 9.8 8.4 - 10.4 mg/dL 02/10/2024 4:13 AM CDT [facility] Anion Gap 8 6 - 16 mmol/L 02/10/2024 4:13 AM CDT [facility] BUN 29(H) 7 - 26 mg/dL 02/10/2024 4:13 AM CDT [facility] Creatinine 0.83 0.72 - 1.25 mg/dL 02/10/2024 4:13 AM CDT [facility] eGFR by CKD-EPI >90 >=90 mL/min/1.7 3 m2 02/10/2024 4:13 AM CDT [facility] Blood BLOOD SPECIMEN / Unknown Venipuncture / Unknown 02/10/2024 3:24 AM CDT 02/10/2024 3:45 AM CDT Chuy Siegel DO LAB - CHEMISTRY ORDE RABLES Performing Organization Address City/[facility]/ZIP Co de Phone Number [facility] [address] [place] [id number] * PHOSPHORUS BLOOD (02/10/2024 3:24 AM CDT) Pathologist [facility] Phosphorus 3.7 2.3 - 4.7 mg/dL 02/10/2024 4:13 AM CDT [facility] Blood BLOOD SPECIMEN / Unknown Venipuncture / Unknown 02/10/2024 3:24 AM CDT 02/10/2024 3:45 AM CDT Chuy Siegel DO LAB - CHEMISTRY ORDAnirudh RAZO Performing Organization Address [facility]/ZIP Co de Phone Number [facility] [address] [place] [phone] * MAGNESIUM BLOOD (02/10/2024 3:24 AM CDT) Pathologist [facility] Magnesium 1.8 1.6 - 2.6 mg/dL 02/10/2024 4:13 AM CDT [facility] Blood BLOOD SPECIMEN / Unknown Venipuncture / Unknown 02/10/2024 3:24 AM CDT 02/10/2024 3:45 AM CDT Chuy Siegel DO LAB - CHEMISTRY ORDAnirudh RAZO Performing Organization Address [facility] de Phone Number [facility] [address] [place] [phone] * (ABNORMAL) GLUCOSE - POINT OF CARE (02/10/2024 12:07 AM CDT) [facility] Glucose WB/POC 140(H) 70 - 106 mg/dL 02/10/2024 3:45 AM CDT [facility] Specimen Type Cap Fingerstick 2023 3:45 AM CDT [facility] Blood BLOOD SPECIMEN / Unknown 02/10/2024 12:07 AM CDT 02/10/2024 3:45 AM CDT Sherie Beltre MD LAB - POINT OF CARE ORDERABLES [facility] [address] [place], [place] [phone] * (ABNORMAL) GLUCOSE - POINT OF CARE (02/09/2024 5:28 PM CDT) [facility] Glucose WB/POC 147(H) 70 - 106 mg/dL 02/09/2024 5:32 PM CDT [facility] Specimen Type Cap Fingerstick 2023 5:32 PM CDT [facility] Blood BLOOD SPECIMEN / Unknown 02/09/2024 5:28 PM CDT 02/09/2024 5:32 PM CDT Sherie Beltre MD LAB - POINT OF CARE ORDERABLES Performing Organization Address City/[facility] Co de Phone Number [facility] [address] [place] [phone] * (ABNORMAL) GLUCOSE - POINT OF CARE (02/09/2024 12:22 PM CDT) [facility] Glucose WB/POC 193(H) 70 - 106 mg/dL 02/09/2024 12:48 PM CDT [facility] Specimen Type Cap Fingerstick 2023 12:48 PM CDT [facility] Blood BLOOD SPECIMEN / Unknown 02/09/2024 12:22 PM CDT 02/09/2024 12:48 PM CDT Sherie Beltre MD LAB - POINT OF CARE ORDERABLES Performing Organization Address City/[facility]/ZIP Co de Phone Number [facility] [address] [place] [address] [phone] * (ABNORMAL) CBC W AUTO DIFFERENTIAL (02/09/2024 8:36 AM CDT) [facility] WBC 11.0(H) 4.0 - 10.7 x10E9/L 02/09/2024 8:43 AM CDT [facility] RBC Count 3.01(L) 4.30 - 5.80 x10E12/L 02/09/2024 8:43 AM CDT [facility] Hemoglobin 8.7(L) 13.3 - 17.5 g/dL 02/09/2024 8:43 AM CDT [facility] Hematocrit 27.9(L) 38.7 - 51.1 % 02/09/2024 8:43 AM CDT [facility] MCV 92.7 80.0 - 98.0 fL 02/09/2024 8:43 AM CDT [facility] MCH 28.9 26.7 - 33.6 pg 02/09/2024 8:43 AM CDT [facility] MCHC 31.2(L) 31.7 - 36.3 g/dL 02/09/2024 8:43 AM CDT [facility] RDW-CV 14.2 11.3 - 14.8 % 02/09/2024 8:43 AM CDT [facility] Platelet Count 382 150 - 420 x10E9/L 02/09/2024 8:43 AM CDT [facility] MPV 9.8 7.8 - 11.4 fL 02/09/2024 8:43 AM CDT [facility] Neutrophil % 64.6 41.0 - 74.0 % 02/09/2024 8:43 AM CDT [facility] Lymphocyte % 20.3 17.0 - 47.0 % 02/09/2024 8:43 AM CDT [facility] Monocyte % 10.7 3.0 - 11.0 % 02/09/2024 8:43 AM CDT [facility] Eosinophil % 3.4 0.0 - 7.0 % 02/09/2024 8:43 AM CDT [facility] Basophil % 0.3 0.0 - 1.6 % 02/09/2024 8:43 AM CDT [facility] Immature Granulocytes % 0.7 0.0 - 1.0 % 02/09/2024 8:43 AM CDT [facility] Neutrophil Absolute 7.12 1.60 - 7.50 x10E9/L 02/09/2024 8:43 AM CDT [facility] Lymphocyte Absolute 2.24 1.00 - 4.40 x10E9/L 02/09/2024 8:43 AM CDT [facility] Monocyte Absolute 1.18(H) 0.15 - 1.00 x10E9/L 02/09/2024 8:43 AM CDT [facility] Eosinophil Absolute 0.38 0.00 - 0.60 x10E9/L 02/09/2024 8:43 AM CDT [facility] Basophil Absolute 0.03 0.00 - 0.13 x10E9/L 02/09/2024 8:43 AM CDT [facility] Blood BLOOD SPECIMEN / Unknown Line Draw / Unknown 02/09/2024 8:36 AM CDT 02/09/2024 8:40 AM CDT Chuy Siegel DO LAB - HEMATOLOGY ORD ERABLES Performing Organization Address [facility] Co de Phone Number [facility] [address] [place] [address] * (ABNORMAL) GLUCOSE - POINT OF CARE (02/09/2024 6:05 AM CDT) Pathologist [facility] Glucose WB/POC 162(H) 70 - 106 mg/dL 02/09/2024 6:07 AM CDT [facility] Specimen Type Cap Fingerstick 2023 6:07 AM CDT [facility] Blood BLOOD SPECIMEN / Unknown 02/09/2024 6:05 AM CDT 02/09/2024 6:07 AM CDT Sherie Beltre MD LAB - POINT OF CARE ORDERABLES Performing Organization Address [facility] de Phone Number [facility] [address] [place] [address] * MAGNESIUM BLOOD (02/09/2024 4:41 AM CDT) Pathologist [facility] Magnesium 1.7 1.6 - 2.6 mg/dL 02/09/2024 5:19 AM CDT [facility] Blood BLOOD SPECIMEN / Unknown Venipuncture / Unknown 02/09/2024 4:41 AM CDT 02/09/2024 4:58 AM CDT Travis Bhat CORPORATE FINANCIAL ANALYST-HAND CLERICAL VERIFIER LAB - CHEMISTRY ORDERABLES Performing Organization Address [facility] Co de Phone Number [facility] [address] [place] [address] * (ABNORMAL) BASIC METABOLIC PANEL (CALCIUM TOTAL) (02/09/2024 4:41 AM CDT) Glucose 112(H) 70 - 105 mg/dL 02/09/2024 5:19 AM CDT [facility] Sodium 142 136 - 145 mmol/L 02/09/2024 5:19 AM CDT [facility] Potassium 3.8 3.5 - 5.1 mmol/L 02/09/2024 5:19 AM CDT [facility] Chloride 110(H) 98 - 107 mmol/L 02/09/2024 5:19 AM CDT [facility] CO2 24 22 - 29 mmol/L 02/09/2024 5:19 AM CDT [facility] Calcium 9.4 8.4 - 10.4 mg/dL 02/09/2024 5:19 AM CDT [facility] Anion Gap 8 6 - 16 mmol/L 02/09/2024 5:19 AM CDT [facility] BUN 33(H) 7 - 26 mg/dL 02/09/2024 5:19 AM CDT [facility] Creatinine 0.89 0.72 - 1.25 mg/dL 02/09/2024 5:19 AM CDT [facility] eGFR by CKD-EPI >90 >=90 mL/min/1.7 3 m2 02/09/2024 5:19 AM CDT [facility] Blood BLOOD SPECIMEN / Unknown Venipuncture / Unknown 02/09/2024 4:41 AM CDT 02/09/2024 4:58 AM CDT Chuy Siegel DO LAB - CHEMISTRY ORDE DUNG [facility] [address] [place] [address] * MAGNESIUM BLOOD (02/09/2024 12:30 AM CDT) Magnesium 1.7 1.6 - 2.6 mg/dL 02/09/2024 12:56 AM CDT [facility] Blood BLOOD SPECIMEN / Unknown Venipuncture / Unknown 02/09/2024 12:30 AM CDT 02/09/2024 12:35 AM CDT Travis Bhat CORPORATE FINANCIAL ANALYST-HAND CLERICAL VERIFIER LAB - CHEMISTRY ORDERABLES Performing Organization Address [facility] Co de Phone Number [facility] [address] [place] [phone] * PHOSPHORUS BLOOD (02/09/2024 12:30 AM CDT) Phosphorus 3.2 2.3 - 4.7 mg/dL 02/09/2024 12:56 AM CDT [facility] Blood BLOOD SPECIMEN / Unknown Venipuncture / Unknown 02/09/2024 12:30 AM CDT 02/09/2024 12:35 AM CDT Travis Bhat APRN-[facility] LAB - CHEMISTRY ORDERABLES Performing Organization Address [facility] Co de Phone Number [facility] [address] [place] [phone] * (ABNORMAL) GLUCOSE - POINT OF CARE (02/09/2024 12:09 AM CDT) Glucose WB/POC 188(H) 70 - 106 mg/dL 02/09/2024 6:07 AM CDT [facility] Specimen Type Cap Fingerstick 2023 6:07 AM CDT [facility] Blood BLOOD SPECIMEN / Unknown 02/09/2024 12:09 AM CDT 02/09/2024 6:07 AM CDT Sherie Beltre MD LAB - POINT OF CARE ORDERABLES Performing Organization Address [facility] Co de Phone Number [facility] [address] [place] [phone] * (ABNORMAL) GLUCOSE - POINT OF CARE (02/08/2024 6:13 PM CDT) Glucose WB/POC 212(H) 70 - 106 mg/dL 02/08/2024 11:53 PM CDT [facility] Specimen Type Cap Fingerstick 2023 11:53 PM CDT [facility] Blood BLOOD SPECIMEN / Unknown 02/08/2024 6:13 PM CDT 02/08/2024 11:53 PM CDT Sherie Beltre MD LAB - POINT OF CARE ORDERABLES Performing Organization Address [facility] Co de Phone Number [facility] [address] [place], [place] [phone] * AMMONIA (02/08/2024 11:53 AM CDT) Ammonia 33 18 - 72 umol/L 02/08/2024 12:16 PM CDT [facility] Blood BLOOD SPECIMEN / Unknown Venipuncture / Unknown 02/08/2024 11:53 AM CDT 02/08/2024 12:02 PM CDT Chuy Siegel DO LAB - CHEMISTRY CHRISTIAN RAZO Performing Organization Address [facility] Co de Phone Number [facility] [address] [place] [address] * (ABNORMAL) BASIC METABOLIC PANEL (CALCIUM TOTAL) (02/08/2024 11:53 AM CDT) Glucose 199(H) 70 - 105 mg/dL 02/08/2024 12:25 PM CDT [facility] Sodium 139 136 - 145 mmol/L 02/08/2024 12:25 PM CDT [facility] Potassium 3.9 3.5 - 5.1 mmol/L 02/08/2024 12:25 PM CDT [facility] Chloride 107 98 - 107 mmol/L 02/08/2024 12:25 PM CDT [facility] CO2 24 22 - 29 mmol/L 02/08/2024 12:25 PM CDT [facility] Calcium 9.6 8.4 - 10.4 mg/dL 02/08/2024 12:25 PM CDT [facility] Anion Gap 8 6 - 16 mmol/L 02/08/2024 12:25 PM CDT [facility] BUN 37(H) 7 - 26 mg/dL 02/08/2024 12:25 PM CDT [facility] Creatinine 0.87 0.72 - 1.25 mg/dL 02/08/2024 12:25 PM CDT [facility] eGFR by CKD-EPI >90 >=90 mL/min/1.7 3 m2 02/08/2024 12:25 PM CDT [facility] Blood BLOOD SPECIMEN / Unknown Venipuncture / Unknown 02/08/2024 11:53 AM CDT 02/08/2024 12:02 PM CDT Chuy Siegel DO LAB - CHEMISTRY ORDE DUNG Performing Organization Address City/[facility]/ZIP Co de Phone Number [facility] [id number] [place] [phone] * MAGNESIUM BLOOD (02/08/2024 11:53 AM CDT) Magnesium 1.8 1.6 - 2.6 mg/dL 02/08/2024 12:25 PM CDT [facility] Blood BLOOD SPECIMEN / Unknown Venipuncture / Unknown 02/08/2024 11:53 AM CDT 02/08/2024 12:02 PM CDT Travis Bhat CORPORATE FINANCIAL ANALYST-HAND CLERICAL VERIFIER LAB - CHEMISTRY ORDERABLES Performing Organization Address [facility] Co de Phone Number [facility] [phone] [place] [phone] * PHOSPHORUS BLOOD (02/08/2024 11:53 AM CDT) Phosphorus 3.6 2.3 - 4.7 mg/dL 02/08/2024 12:25 PM CDT [facility] Blood BLOOD SPECIMEN / Unknown Venipuncture / Unknown 02/08/2024 11:53 AM CDT 02/08/2024 12:02 PM CDT Travis Bhat CORPORATE FINANCIAL ANALYST-HAND CLERICAL VERIFIER LAB - CHEMISTRY ORDERABLES Performing Organization Address [facility] Co de Phone Number [facility] [id number] [place] [address] * (ABNORMAL) GLUCOSE - POINT OF CARE (02/08/2024 11:05 AM CDT) Glucose WB/POC 178(H) 70 - 106 mg/dL 02/08/2024 11:09 AM CDT [facility] Specimen Type Cap Fingerstick 2023 11:09 AM CDT [facility] Blood BLOOD SPECIMEN / Unknown 02/08/2024 11:05 AM CDT 02/08/2024 11:09 AM CDT Sherie Beltre MD LAB - POINT OF CARE ORDERABLES [facility] [address] [place] [address] * (ABNORMAL) GLUCOSE - POINT OF CARE (02/08/2024 6:36 AM CDT) Pathologist [facility] Glucose WB/POC 200(H) 70 - 106 mg/dL 02/08/2024 6:41 AM CDT [facility] Specimen Type Cap Fingerstick 2023 6:41 AM CDT [facility] Blood BLOOD SPECIMEN / Unknown 02/08/2024 6:36 AM CDT 02/08/2024 6:41 AM CDT Sherie Beltre MD LAB - POINT OF CARE ORDERABLES [facility] [id number] [place] [phone] * (ABNORMAL) HEPATIC FUNCTION PANEL (02/08/2024 5:26 AM CDT) Alkaline Phosphatase 193(H) 40 - 150 U/L 02/08/2024 9:54 AM CDT [facility] ALT 73(H) 0 - 55 U/L 02/08/2024 9:54 AM CDT [facility] AST 62(H) 5 - 34 U/L 02/08/2024 9:54 AM CDT [facility] Protein Total 8.0 6.4 - 8.3 gm/dL 02/08/2024 9:54 AM CDT [facility] Albumin 2.1(L) 3.4 - 5.0 gm/dL 02/08/2024 9:54 AM CDT [facility] Bilirubin Total 0.3 0.2 - 1.2 mg/dL 02/08/2024 9:54 AM CDT [facility] Bilirubin Direct 0.163 0.10 - 0.50 mg/dL 02/08/2024 9:54 AM CDT [facility] Blood BLOOD SPECIMEN / Unknown Line Draw / Unknown 02/08/2024 5:26 AM CDT 02/08/2024 5:37 AM CDT Chuy Salma Robbin [facility] LAB - CHEMISTRY ORDAnirudh RAZO Performing Organization Address [facility] de Phone Number [facility] [id number] [place] [address] [phone] * TSH REFLEX FREE T4 (02/08/2024 5:26 AM CDT) Pathologist [facility] TSH 1.794 0.350 - 4.940 uIU/mL 02/08/2024 10:12 AM CDT [facility] Blood BLOOD SPECIMEN / Unknown Line Draw / Unknown 02/08/2024 5:26 AM CDT 02/08/2024 5:37 AM CDT Chuy Salma Robbin [facility] LAB - CHEMISTRY ORDAnirudh DUNG Performing Organization Address [facility] de Phone Number [facility] [address] [place] [address] * SLIDE SCAN HEMATOLOGY (02/08/2024 5:26 AM CDT) RBC Morphology NORMAL 02/08/2024 6:14 AM CDT [facility] Platelet Morphology NORMAL 02/08/2024 6:14 AM CDT [facility] Blood BLOOD SPECIMEN / Unknown Line Draw / Unknown 02/08/2024 5:26 AM CDT 02/08/2024 5:37 AM CDT Iggy Cabrera MD LAB - HEMATOLOGY ORDERABLES Performing Organization Address City/State/[facility] Co de Phone Number [facility] [address] [place] [address] * (ABNORMAL) CBC W AUTO DIFFERENTIAL (02/08/2024 5:26 AM CDT) [facility] Signature WBC 14.1(H) 4.0 - 10.7 x10E9/L 02/08/2024 6:14 AM CDT [facility] RBC Count 3.35(L) 4.30 - 5.80 x10E12/L 02/08/2024 6:14 AM CDT [facility] Hemoglobin 9.9(L) 13.3 - 17.5 g/dL 02/08/2024 6:14 AM CDT [facility] Hematocrit 30.6(L) 38.7 - 51.1 % 02/08/2024 6:14 AM CDT [facility] MCV 91.3 80.0 - 98.0 fL 02/08/2024 6:14 AM CDT [facility] MCH 29.6 26.7 - 33.6 pg 02/08/2024 6:14 AM CDT [facility] MCHC 32.4 31.7 - 36.3 g/dL 02/08/2024 6:14 AM CDT [facility] RDW-CV 14.3 11.3 - 14.8 % 02/08/2024 6:14 AM CDT [facility] Platelet Count 368 150 - 420 x10E9/L 02/08/2024 6:14 AM CDT [facility] MPV 9.8 7.8 - 11.4 fL 02/08/2024 6:14 AM CDT [facility] Neutrophil % 72.4 41.0 - 74.0 % 02/08/2024 6:14 AM CDT [facility] Lymphocyte % 12.8(L) 17.0 - 47.0 % 02/08/2024 6:14 AM CDT [facility] Monocyte % 11.3(H) 3.0 - 11.0 % 02/08/2024 6:14 AM CDT [facility] Eosinophil % 2.6 0.0 - 7.0 % 02/08/2024 6:14 AM CDT [facility] Basophil % 0.2 0.0 - 1.6 % 02/08/2024 6:14 AM CDT [facility] Immature Granulocytes % 0.7 0.0 - 1.0 % 02/08/2024 6:14 AM CDT [facility] Neutrophil Absolute 10.20(H) 1.60 - 7.50 x10E9/L 02/08/2024 6:14 AM CDT [facility] Lymphocyte Absolute 1.81 1.00 - 4.40 x10E9/L 02/08/2024 6:14 AM CDT [facility] Monocyte Absolute 1.60(H) 0.15 - 1.00 x10E9/L 02/08/2024 6:14 AM CDT [facility] Eosinophil Absolute 0.36 0.00 - 0.60 x10E9/L 02/08/2024 6:14 AM CDT [facility] Basophil Absolute 0.03 0.00 - 0.13 x10E9/L 02/08/2024 6:14 AM CDT [facility] Blood BLOOD SPECIMEN / Unknown Line Draw / Unknown 02/08/2024 5:26 AM CDT 02/08/2024 5:37 AM CDT Iggy Cabrera MD LAB - HEMATOLOGY ORDERABLES [facility] [address] [place] [address] * (ABNORMAL) BASIC METABOLIC PANEL (CALCIUM TOTAL) (02/08/2024 5:26 AM CDT) Glucose 178(H) 70 - 105 mg/dL 02/08/2024 6:05 AM CDT [facility] Sodium 141 136 - 145 mmol/L 02/08/2024 6:05 AM CDT [facility] Potassium 3.9 3.5 - 5.1 mmol/L 02/08/2024 6:05 AM CDT [facility] Chloride 104 98 - 107 mmol/L 02/08/2024 6:05 AM CDT [facility] CO2 24 22 - 29 mmol/L 02/08/2024 6:05 AM CDT [facility] Calcium 9.7 8.4 - 10.4 mg/dL 02/08/2024 6:05 AM CDT [facility] Anion Gap 13 6 - 16 mmol/L 02/08/2024 6:05 AM CDT [facility] BUN 38(H) 7 - 26 mg/dL 02/08/2024 6:05 AM CDT [facility] Creatinine 0.95 0.72 - 1.25 mg/dL 02/08/2024 6:05 AM CDT [facility] eGFR by CKD-EPI 89(L) >=90 mL/min/1.7 3 m2 02/08/2024 6:05 AM CDT [facility] Blood BLOOD SPECIMEN / Unknown Line Draw / Unknown 02/08/2024 5:26 AM CDT 02/08/2024 5:37 AM CDT Chuy Siegel DO LAB - CHEMISTRY CHRISTIAN RAZO [facility] [address] [place] [address] * (ABNORMAL) BASIC METABOLIC PANEL (CALCIUM TOTAL) (02/08/2024 12:11 AM CDT) Glucose 204(H) 70 - 105 mg/dL 02/08/2024 12:38 AM CDT [facility] Sodium 140 136 - 145 mmol/L 02/08/2024 12:38 AM CDT [facility] Potassium 4.1 3.5 - 5.1 mmol/L 02/08/2024 12:38 AM CDT [facility] Chloride 103 98 - 107 mmol/L 02/08/2024 12:38 AM CDT [facility] CO2 23 22 - 29 mmol/L 02/08/2024 12:38 AM CDT [facility] Calcium 8.8 8.4 - 10.4 mg/dL 02/08/2024 12:38 AM CDT [facility] Anion Gap 14 6 - 16 mmol/L 02/08/2024 12:38 AM CDT [facility] BUN 40(H) 7 - 26 mg/dL 02/08/2024 12:38 AM CDT [facility] Creatinine 1.12 0.72 - 1.25 mg/dL 02/08/2024 12:38 AM CDT [facility] eGFR by CKD-EPI 73(L) >=90 mL/min/1.7 3 m2 02/08/2024 12:38 AM CDT [facility] Blood BLOOD SPECIMEN / Unknown Line Draw / Unknown 02/08/2024 12:11 AM CDT 02/08/2024 12:17 AM CDT Iggy Cabrera MD LAB - CHEMISTRY ORDERABLES Performing Organization Address [facility] Co de Phone Number [facility] [id number] [place] [address] * MAGNESIUM BLOOD (02/08/2024 12:11 AM CDT) Magnesium 1.9 1.6 - 2.6 mg/dL 02/08/2024 12:38 AM CDT [facility] Blood BLOOD SPECIMEN / Unknown Line Draw / Unknown 02/08/2024 12:11 AM CDT 02/08/2024 12:17 AM CDT Travis Bhat CORPORATE FINANCIAL ANALYST-HAND [employer]ERICAL [employer]IFIER LAB - CHEMISTRY ORDERABLES Performing Organization Address [facility] de Phone Number [facility] [address] [place] [phone] * PHOSPHORUS BLOOD (02/08/2024 12:11 AM CDT) Phosphorus 3.8 2.3 - 4.7 mg/dL 02/08/2024 12:38 AM CDT [facility] Blood BLOOD SPECIMEN / Unknown Line Draw / Unknown 02/08/2024 12:11 AM CDT 02/08/2024 12:17 AM CDT Travis Bhat CORPORATE FINANCIAL ANALYST-HAND [employer]ERICAL [employer]IFIER LAB - CHEMISTRY ORDERABLES Performing Organization Address [facility] de Phone Number [facility] [address] [place] [address] * (ABNORMAL) GLUCOSE - POINT OF CARE (02/08/2024 12:08 AM CDT) Glucose WB/POC 195(H) 70 - 106 mg/dL 02/08/2024 12:14 AM CDT [facility] Specimen Type Cap Fingerstick 2023 12:14 AM CDT [facility] Blood BLOOD SPECIMEN / Unknown 02/08/2024 12:08 AM CDT 02/08/2024 12:14 AM CDT Sherie Beltre MD LAB - POINT OF CARE ORDERABLES Performing Organization Address [facility]/ZIP Co de Phone Number [facility] [address] [place] [phone] * (ABNORMAL) GLUCOSE - POINT OF CARE (02/07/2024 5:55 PM CDT) Glucose WB/POC 218(H) 70 - 106 mg/dL 02/07/2024 6:00 PM CDT [facility] Specimen Type Arterial 02/07/2024 6:00 PM CDT [facility] Blood BLOOD SPECIMEN / Unknown 02/07/2024 5:55 PM CDT 02/07/2024 6:00 PM CDT Sherie Beltre MD LAB - POINT OF CARE ORDERABLES Performing Organization Address City/[facility] Co de Phone Number [facility] [address] [place] [phone] * (ABNORMAL) BASIC METABOLIC PANEL (CALCIUM TOTAL) (02/07/2024 3:34 PM CDT) Glucose 202(H) 70 - 105 mg/dL 02/07/2024 4:00 PM CDT [facility] Sodium 137 136 - 145 mmol/L 02/07/2024 4:00 PM CDT [facility] Potassium 4.3 3.5 - 5.1 mmol/L 02/07/2024 4:00 PM CDT [facility] Chloride 103 98 - 107 mmol/L 02/07/2024 4:00 PM CDT [facility] CO2 24 22 - 29 mmol/L 02/07/2024 4:00 PM CDT [facility] Calcium 9.5 8.4 - 10.4 mg/dL 02/07/2024 4:00 PM CDT [facility] Anion Gap 10 6 - 16 mmol/L 02/07/2024 4:00 PM CDT [facility] BUN 38(H) 7 - 26 mg/dL 02/07/2024 4:00 PM CDT [facility] Creatinine 1.11 0.72 - 1.25 mg/dL 02/07/2024 4:00 PM CDT [facility] eGFR by CKD-EPI 74(L) >=90 mL/min/1.7 3 m2 02/07/2024 4:00 PM CDT [facility] Blood BLOOD SPECIMEN / Unknown Venipuncture / Unknown 02/07/2024 3:34 PM CDT 02/07/2024 3:40 PM CDT Chuy Siegel DO LAB - CHEMISTRY [facility] [id number] [id number] * MRI BRAIN WO CONTRAST (02/07/2024 3:06 PM CDT) Anatomical Region Laterality Modality Head Magnetic Resonan ce 02/07/2024 3:18 PM CDT Impressions 02/07/2024 3:36 PM CDT IMPRESSION: 1. New 11 x 6 mm acute infarction within the right periatrial white matter/major forceps. 2. There is expected evolution of previously demonstrated acute infarctions within the left thalamus and extending into the midbrain as well as the right frontal merchant radiata as compared with 01/23/2024. 3. Persistent global involutional changes, chronic right basal ganglia lacunar infarction and underlying ischemic microangiopathy. > Interpreting Provider: Alexei Cruz DO on 02/07/2024 3:36 PM Narrative 02/07/2024 3:36 PM CDT PROCEDURE: ??MRI BRAIN WO CONTRAST DATE/TIME OF EXAM: ??02/07/2024 3:07 PM CLINICAL INFORMATION: Altered mental status. COMPARISON: Head CT 01/27/2024. MRI of the brain 01/23/2024. TECHNIQUE: ?? MRI of the brain was performed without contrast. FINDINGS: Expected evolution of previously demonstrated acute infarctions within the left thalamus and extending into the medial aspect of the left midbrain as well as within the right frontal merchant radiata. There is a new small focus of cytotoxic edema within the right periatrial white matter/major forceps measuring 11 x 6 mm in keeping with a small new acute infarction. Additional small chronic infarction with minor amount of hemosiderin deposition in the right lentiform nucleus is again noted. Superimposed moderate chronic ischemic microangiopathy. Flow voids at the skull base are present. No developing mass, mass effect or midline shift. Midline structures are unremarkable. No cerebellar tonsillar ectopia. Orbital contents are unremarkable. Mucosal thickening throughout the ethmoid, sphenoid and maxillary sinuses. There is fluid within the bilateral mastoid air cells. Procedure Note Alexei Cruz DO - 02/07/2024 PROCEDURE: MRI BRAIN WO CONTRAST DATE/TIME OF EXAM: 02/07/2024 3:07 PM CLINICAL INFORMATION: Altered mental status. COMPARISON: Head CT 01/27/2024. MRI of the brain 01/23/2024. TECHNIQUE: MRI of the brain was performed without contrast. FINDINGS: Expected evolution of previously demonstrated acute infarctions withinthe left thalamus and extending into the medial aspect of the left midbrainas well as within the right frontal merchant radiata. There is a new smallfocus of cytotoxic edema within the right periatrial white matter/majorforceps measuring 11 x 6 mm in keeping with a small new acute infarction. Additional small chronic infarction with minor amount of hemosiderin deposition in the right lentiform nucleus is again noted. Superimposed moderate chronic ischemic microangiopathy. Flow voids at the skull baseare present. No developing mass, mass effect or midline shift. Midline structures are unremarkable. No cerebellar tonsillar ectopia. Orbital contents are unremarkable. Mucosal thickening throughout the ethmoid, sphenoid and maxillary sinuses. There is fluid within the bilateral mastoid aircells. IMPRESSION: 1. New 11 x 6 mm acute infarction within the right periatrial white matter/major forceps. 2. There is expected evolution of previously demonstrated acuteinfarctions within the left thalamus and extending into the midbrain as well as the right frontal merchant radiata as compared with 01/23/2024. 3. Persistent global involutional changes, chronic right basal ganglia lacunar infarction and underlying ischemic microangiopathy. > Interpreting Provider: Alexei Cruz DO on 02/07/2024 3:36 PM Kel Jacome MD MR ORDERABLES * PHOSPHORUS BLOOD (02/07/2024 12:09 PM CDT) Phosphorus 3.4 2.3 - 4.7 mg/dL 02/07/2024 12:41 PM CDT [facility] Blood BLOOD SPECIMEN / Unknown Venipuncture / Unknown 02/07/2024 12:09 PM CDT 02/07/2024 12:17 PM CDT Travis Bhat CORPORATE FINANCIAL ANALYST-HAND CLERICAL VERIFIER LAB - CHEMISTRY ORDERABLES Performing Organization Address [facility] Co de Phone Number [facility] [address] [place] [address] * (ABNORMAL) GLUCOSE - POINT OF CARE (02/07/2024 11:52 AM CDT) Glucose WB/POC 201(H) 70 - 106 mg/dL 02/07/2024 11:57 AM CDT [facility] Specimen Type Arterial 02/07/2024 11:57 AM CDT [facility] Blood BLOOD SPECIMEN / Unknown 02/07/2024 11:52 AM CDT 02/07/2024 11:57 AM CDT Sherie Beltre MD LAB - POINT OF CARE ORDERABLES Performing Organization Address [facility] Co de Phone Number [facility] [address] [place] [address] * (ABNORMAL) GLUCOSE - POINT OF CARE (02/07/2024 6:18 AM CDT) Glucose WB/POC 248(H) 70 - 106 mg/dL 02/07/2024 7:23 AM CDT [facility] Specimen Type Cap Fingerstick 2023 7:23 AM CDT [facility] Blood BLOOD SPECIMEN / Unknown 02/07/2024 6:18 AM CDT 02/07/2024 7:23 AM CDT Sherie Beltre MD LAB - POINT OF CARE ORDERABLES [facility] [address] [place], [place] [id number] * SLIDE SCAN HEMATOLOGY (02/07/2024 4:22 AM CDT) Pathologist [facility] RBC Morphology RED CELL INDICIES CONFIRMED 02/07/2024 5:25 AM CDT [facility] Blood BLOOD SPECIMEN / Unknown Line Draw / Unknown 02/07/2024 4:22 AM CDT 02/07/2024 4:27 AM CDT Iggy Cabrera MD LAB - HEMATOLOGY ORDERABLES Performing Organization Address [facility] Co de Phone Number [facility] [address] [place] [address] * (ABNORMAL) CBC W AUTO DIFFERENTIAL (02/07/2024 4:22 AM CDT) Pathologist [facility] WBC 17.4(H) 4.0 - 10.7 x10E9/L 02/07/2024 5:25 AM CDT [facility] RBC Count 3.63(L) 4.30 - 5.80 x10E12/L 02/07/2024 5:25 AM CDT [facility] Hemoglobin 10.5(L) 13.3 - 17.5 g/dL 02/07/2024 5:25 AM CDT [facility] Hematocrit 32.8(L) 38.7 - 51.1 % 02/07/2024 5:25 AM CDT [facility] MCV 90.4 80.0 - 98.0 fL 02/07/2024 5:25 AM CDT [facility] MCH 28.9 26.7 - 33.6 pg 02/07/2024 5:25 AM CDT [facility] MCHC 32.0 31.7 - 36.3 g/dL 02/07/2024 5:25 AM CDT [facility] RDW-CV 14.1 11.3 - 14.8 % 02/07/2024 5:25 AM CDT [facility] Platelet Count 363 150 - 420 x10E9/L 02/07/2024 5:25 AM CDT [facility] MPV 9.8 7.8 - 11.4 fL 02/07/2024 5:25 AM CDT [facility] Neutrophil % 72.7 41.0 - 74.0 % 02/07/2024 5:25 AM CDT [facility] Lymphocyte % 13.8(L) 17.0 - 47.0 % 02/07/2024 5:25 AM CDT [facility] Monocyte % 11.4(H) 3.0 - 11.0 % 02/07/2024 5:25 AM CDT [facility] Eosinophil % 1.2 0.0 - 7.0 % 02/07/2024 5:25 AM CDT [facility] Basophil % 0.2 0.0 - 1.6 % 02/07/2024 5:25 AM CDT [facility] Immature Granulocytes % 0.7 0.0 - 1.0 % 02/07/2024 5:25 AM CDT [facility] Neutrophil Absolute 12.61(H) 1.60 - 7.50 x10E9/L 02/07/2024 5:25 AM CDT [facility] Lymphocyte Absolute 2.40 1.00 - 4.40 x10E9/L 02/07/2024 5:25 AM CDT [facility] Monocyte Absolute 1.98(H) 0.15 - 1.00 x10E9/L 02/07/2024 5:25 AM CDT [facility] Eosinophil Absolute 0.20 0.00 - 0.60 x10E9/L 02/07/2024 5:25 AM CDT [facility] Basophil Absolute 0.04 0.00 - 0.13 x10E9/L 02/07/2024 5:25 AM CDT [facility] Blood BLOOD SPECIMEN / Unknown Line Draw / Unknown 02/07/2024 4:22 AM CDT 02/07/2024 4:27 AM CDT Iggy Cabrera MD LAB - HEMATOLOGY ORDERABLES [facility] [address] [place] [address] * MAGNESIUM BLOOD (02/07/2024 4:22 AM CDT) Magnesium 1.9 1.6 - 2.6 mg/dL 02/07/2024 4:59 AM CDT [facility] Blood BLOOD SPECIMEN / Unknown Line Draw / Unknown 02/07/2024 4:22 AM CDT 02/07/2024 4:27 AM CDT Travis Malick Bhat CORPORATE FINANCIAL ANALYST-HAND CLERICAL VERIFIER LAB - CHEMISTRY ORDERABLES [facility] [address] [place] [address] * (ABNORMAL) BASIC METABOLIC PANEL (CALCIUM TOTAL) (02/07/2024 4:22 AM CDT) [facility] Glucose 241(H) 70 - 105 mg/dL 02/07/2024 4:59 AM CDT [facility] Sodium 135(L) 136 - 145 mmol/L 02/07/2024 4:59 AM CDT [facility] Potassium 4.1 3.5 - 5.1 mmol/L 02/07/2024 4:59 AM CDT [facility] Chloride 105 98 - 107 mmol/L 02/07/2024 4:59 AM CDT [facility] CO2 23 22 - 29 mmol/L 02/07/2024 4:59 AM CDT [facility] Calcium 9.1 8.4 - 10.4 mg/dL 02/07/2024 4:59 AM CDT [facility] Anion Gap 7 6 - 16 mmol/L 02/07/2024 4:59 AM CDT [facility] BUN 37(H) 7 - 26 mg/dL 02/07/2024 4:59 AM CDT [facility] Creatinine 0.96 0.72 - 1.25 mg/dL 02/07/2024 4:59 AM CDT [facility] eGFR by CKD-EPI 88(L) >=90 mL/min/1.7 3 m2 02/07/2024 4:59 AM CDT [facility] Blood BLOOD SPECIMEN / Unknown Line Draw / Unknown 02/07/2024 4:22 AM CDT 02/07/2024 4:27 AM CDT Chuy Siegel DO LAB - CHEMISTRY CHRISTIAN RAZO Performing Organization Address [facility] de Phone Number [facility] [id number] [place] [address] * (ABNORMAL) GLUCOSE - POINT OF CARE (02/07/2024 12:36 AM CDT) Glucose WB/POC 239(H) 70 - 106 mg/dL 02/07/2024 12:41 AM CDT [facility] Specimen Type Cap Fingerstick 2023 12:41 AM CDT [facility] Blood BLOOD SPECIMEN / Unknown 02/07/2024 12:36 AM CDT 02/07/2024 12:41 AM CDT Sherie Beltre MD LAB - POINT OF CARE ORDERABLES Performing Organization Address [facility] de Phone Number [facility] [address] [place] [address] * MAGNESIUM BLOOD (02/07/2024 12:36 AM CDT) Magnesium 1.9 1.6 - 2.6 mg/dL 02/07/2024 1:01 AM CDT [facility] Blood BLOOD SPECIMEN / Unknown Line Draw / Unknown 02/07/2024 12:36 AM CDT 02/07/2024 12:42 AM CDT Travis Bhat APRN-HAND CLERICAL VERIFIER LAB - CHEMISTRY ORDERABLES Performing Organization Address [facility] Co de Phone Number [facility] [address] [place] [phone] * PHOSPHORUS BLOOD (02/07/2024 12:36 AM CDT) Phosphorus 3.5 2.3 - 4.7 mg/dL 02/07/2024 1:01 AM CDT [facility] Blood BLOOD SPECIMEN / Unknown Line Draw / Unknown 02/07/2024 12:36 AM CDT 02/07/2024 12:42 AM CDT Traviskirill Bhat APRN-HAND CLERICAL VERIFIER LAB - CHEMISTRY ORDERABLES Performing Organization Address [facility] Co de Phone Number [facility] [address] [place], [place] [phone] * (ABNORMAL) GLUCOSE - POINT OF CARE (02/06/2024 9:42 PM CDT) Glucose WB/POC 234(H) 70 - 106 mg/dL 02/06/2024 9:47 PM CDT [facility] Specimen Type Cap Fingerstick 2023 9:47 PM CDT [facility] Blood BLOOD SPECIMEN / Unknown 02/06/2024 9:42 PM CDT 02/06/2024 9:47 PM CDT Sherie Beltre MD LAB - POINT OF CARE ORDERABLES Performing Organization Address [facility] de Phone Number [facility] [address] [place], [place] [phone] * (ABNORMAL) BASIC METABOLIC PANEL (CALCIUM TOTAL) (02/06/2024 5:45 PM CDT) Glucose 232(H) 70 - 105 mg/dL 02/06/2024 6:20 PM CDT [facility] Sodium 136 136 - 145 mmol/L 02/06/2024 6:20 PM CDT [facility] Potassium 4.4 3.5 - 5.1 mmol/L 02/06/2024 6:20 PM CDT [facility] Chloride 102 98 - 107 mmol/L 02/06/2024 6:20 PM CDT [facility] CO2 23 22 - 29 mmol/L 02/06/2024 6:20 PM CDT [facility] Calcium 9.7 8.4 - 10.4 mg/dL 02/06/2024 6:20 PM CDT [facility] Anion Gap 11 6 - 16 mmol/L 02/06/2024 6:20 PM CDT [facility] BUN 36(H) 7 - 26 mg/dL 02/06/2024 6:20 PM CDT [facility] Creatinine 1.10 0.72 - 1.25 mg/dL 02/06/2024 6:20 PM CDT [facility] eGFR by CKD-EPI 74(L) >=90 mL/min/1.7 3 m2 02/06/2024 6:20 PM CDT [facility] Blood BLOOD SPECIMEN / Unknown Clinic Draw / Unknown 02/06/2024 5:45 PM CDT 02/06/2024 5:58 PM CDT Chuy Siegel DO LAB - CHEMISTRY ORDAnirudh RAZO Performing Organization Address [facility] Co de Phone Number [facility] [address] [place], [place] [phone] * (ABNORMAL) URINE MICROSCOPIC ONLY (02/06/2024 11:40 AM CDT) RBC UA >100(A) 0 - 5 # /hpf 02/06/2024 1:30 PM CDT [facility] WBC UA 11-20(A) 0 - 5 # /hpf 02/06/2024 1:30 PM CDT [facility] Hyaline Casts None Seen 0 - 2 /LPF 02/06/2024 1:30 PM CDT [facility] Bacteria UA 2+(A) None Seen 02/06/2024 1:30 PM CDT [facility] Squamous Epithelial Cells 6-10(A) 0 - 5 /hpf 02/06/2024 1:30 PM CDT [facility] Urine URINE SPECIMEN OBTAINED VIA [employer]WELLING URINARY CATHETER / Unknown Collection / Unknown 02/06/2024 11:40 AM CDT 02/06/2024 12:56 PM CDT Kel Jacome MD LAB - URINALYSIS ORD CELIA Performing Organization Address [facility] Co de Phone Number [facility] [address] [place] [address] * (ABNORMAL) URINALYSIS REFLEX TO MICROSCOPIC NO CULTURE (02/06/2024 11:40 AM CDT) Color UA Beckie(A) Straw, Yellow 02/06/2024 1:03 PM CDT [facility] Clarity UA Cloudy(A) Clear 02/06/2024 1:03 PM CDT [facility] Glucose UA Negative Negative 02/06/2024 1:03 PM CDT [facility] Bilirubin UA Negative Negative 02/06/2024 1:03 PM CDT [facility] Ketone UA Negative Negative 02/06/2024 1:03 PM CDT [facility] Specific [place] UA 1.025 1.005 - 1.030 02/06/2024 1:03 PM CDT [facility] Blood UA 3+(A) Negative 02/06/2024 1:03 PM CDT [facility] pH UA 5.0 5.0 - 8.0 pH 02/06/2024 1:03 PM CDT [facility] Protein UA 2+(A) Negative 02/06/2024 1:03 PM CDT [facility] Urobilinogen UA 2.0(A) Negative mg/dL 02/06/2024 1:03 PM CDT [facility] Nitrite UA Negative Negative 02/06/2024 1:03 PM CDT [facility] Leukocyte UA Trace(A) Negative 02/06/2024 1:03 PM CDT [facility] Urine Microscopy Urine microscopy to follow 02/06/2024 1:03 PM CDT [facility] Urine URINE SPECIMEN OBTAINED VIA [employer]WE[employer] URINARY CATHETER / Unknown Collection / Unknown 02/06/2024 11:40 AM CDT 02/06/2024 12:56 PM CDT Narrative [facility] - 02/06/2024 1:03 PM CDT Kel Jacome MD LAB - URINALYSIS ORD ERABLES Performing Organization Address City/State/[facility] Co de Phone Number [facility] [address] [place] [address] * (ABNORMAL) GLUCOSE - POINT OF CARE (02/06/2024 11:37 AM CDT) Glucose WB/POC 173(H) 70 - 106 mg/dL 02/06/2024 9:01 PM CDT [facility] Specimen Type Cap Fingerstick 2023 9:01 PM CDT [facility] Blood BLOOD SPECIMEN / Unknown 02/06/2024 11:37 AM CDT 02/06/2024 9:01 PM CDT Sherie Beltre MD LAB - POINT OF CARE ORDERABLES [facility] [address] [place] [address] * MRSA DNA PCR (02/06/2024 11:33 AM CDT) MRSA DNA by PCR Not detected Not detected 02/07/2024 12:[address] [facility] Microbiology SPECIMEN FROM NASAL FOSSAE / Unknown Collection / Unknown 02/06/2024 11:33 AM CDT 02/06/2024 12:[address] [facility] - 02/07/2024 12:39 AM CDT Methicillin-resistant Staphylococcus aureus (MRSA) DNA is not detected (presumed not colonized with MRSA). Kel Jacome MD LAB - MICROBIOLOGY O RDERABLES Performing Organization Address City/[facility]/ZIP Co de Phone Number [facility] [address] [phone] * (ABNORMAL) CULTURE SPUTUM+GRAM STAIN (02/06/2024 11:33 AM CDT) Culture Moderate Staphylococcus aureus(A) VALERIA 02/08/2024 10:[address] [facility] Comment:Staphylococcus aureu s methicillin-susceptible (MSSA) detected by penicillin binding protein immunoassay. Culture Rare normal oropharyngeal tae VALERIA 02/08/2024 10:[address] [facility]CRO[facility] Gram Stain <10 per low power field Squamous epithelial cells 02/08/2024 10:43 PM CDT [facility]CRO[facility] Gram Stain >= 25 per low power field Polymorphonuclear cells 02/08/2024 10:43 PM CDT [facility] Gram Stain Moderate Gram-positive cocci 02/08/2024 10:43 PM CDT [facility]CRO[facility]OLOG[facility] Microbiology LOWER RESPIRATORY FLUID SPECIMEN / [...] ug/mL: Susceptible Staphylococcus aureus Trimethoprim-sulfa methox azole AVLERIA <=10 ug/mL: Susceptible Staphylococcus aureus Vancomycin VALERIA <=0.5 ug/mL: Susceptible Comment: Staphylococcus sensitivity to oxacillin predicts susceptibility for nafcillin, ampicillin/sulbactam, amoxicillin/clavulanate, piperacillin/tazobactam, all cephalosporins (except ceftazidime, ceftazidime/avibactam, ceftolozane/tazobactam), and all carbapenems. Kel Jacome MD LAB - MICROBIOLOGY O АННА Performing Organization Address [facility] Co de Phone Number [facility] [address] [place] [address], [facility] [phone] * CULTURE BLOOD (02/06/2024 11:31 AM CDT) Culture No growth day 5 VALERIA 02/11/2024 1:[address] [facility] Blood PERIPHERAL BLOOD / Unknown Venipuncture / Unknown 02/06/2024 11:31 AM CDT 02/06/2024 11:39 AM CDT Kel Jacome MD LAB - MICROBIOLOGY O АННА Performing Organization Address [facility] Co de Phone Number [facility] [address] [place] [address], [facility] [phone] * CULTURE BLOOD (02/06/2024 11:13 AM CDT) Culture No growth day 5 VALERIA 02/11/2024 1:[address] [facility] Blood PERIPHERAL BLOOD / Unknown Venipuncture / Unknown 02/06/2024 11:13 AM CDT 02/06/2024 11:21 AM CDT Kel Jacome MD LAB - MICROBIOLOGY O АННА Performing Organization Address [facility] Co de Phone Number [facility] [address] [place] [address] [phone] * MAGNESIUM BLOOD (02/06/2024 11:13 AM CDT) Pathologist [facility] Magnesium 1.9 1.6 - 2.6 mg/dL 02/06/2024 11:41 AM CDT [facility] Blood BLOOD SPECIMEN / Unknown Venipuncture / Unknown 02/06/2024 11:13 AM CDT 02/06/2024 11:21 AM CDT Travis Bhat CORPORATE FINANCIAL ANALYST-[facility] LAB - CHEMISTRY ORDERABLES Performing Organization Address [facility] Co de Phone Number [facility] [address] [place] [phone] * PHOSPHORUS BLOOD (02/06/2024 11:13 AM CDT) Pathologist [facility] Phosphorus 3.7 2.3 - 4.7 mg/dL 02/06/2024 11:41 AM CDT [facility] Blood BLOOD SPECIMEN / Unknown Venipuncture / Unknown 02/06/2024 11:13 AM CDT 02/06/2024 11:21 AM CDT Travis Bhat CORPORATE FINANCIAL ANALYST-[facility] LAB - CHEMISTRY ORDERABLES Performing Organization Address [facility] de Phone Number [facility] [address] [place] [phone] * (ABNORMAL) GLUCOSE - POINT OF CARE (02/06/2024 6:31 AM CDT) Pathologist [facility] Glucose WB/POC 208(H) 70 - 106 mg/dL 02/06/2024 6:36 AM CDT [facility] Specimen Type Cap Fingerstick 2023 6:36 AM CDT [facility] Blood BLOOD SPECIMEN / Unknown 02/06/2024 6:31 AM CDT 02/06/2024 6:36 AM CDT Sherie Beltre MD LAB - POINT OF CARE ORDERABLES Performing Organization Address City/[facility]/ZIP Co de Phone Number [facility] [address] [place] [address] * SLIDE SCAN HEMATOLOGY (02/06/2024 4:20 AM CDT) Pathologist [facility] RBC Morphology NORMAL 02/06/2024 5:17 AM CDT [facility] Platelet Morphology NORMAL 02/06/2024 5:17 AM CDT [facility] Blood BLOOD SPECIMEN / Unknown Line Draw / Unknown 02/06/2024 4:20 AM CDT 02/06/2024 4:31 AM CDT Iggy Cabrera MD LAB - HEMATOLOGY ORDERABLES Performing Organization Address City/[facility] Co de Phone Number [facility] [address] [place] [address] * (ABNORMAL) CBC W AUTO DIFFERENTIAL (02/06/2024 4:20 AM CDT) Pathologist [facility] WBC 14.4(H) 4.0 - 10.7 x10E9/L 02/06/2024 5:17 AM CDT [facility] RBC Count 3.72(L) 4.30 - 5.80 x10E12/L 02/06/2024 5:17 AM CDT [facility] Hemoglobin 11.1(L) 13.3 - 17.5 g/dL 02/06/2024 5:17 AM CDT [facility] Hematocrit 33.7(L) 38.7 - 51.1 % 02/06/2024 5:17 AM CDT [facility] MCV 90.6 80.0 - 98.0 fL 02/06/2024 5:17 AM CDT [facility] MCH 29.8 26.7 - 33.6 pg 02/06/2024 5:17 AM CDT [facility] MCHC 32.9 31.7 - 36.3 g/dL 02/06/2024 5:17 AM CDT [facility] RDW-CV 14.2 11.3 - 14.8 % 02/06/2024 5:17 AM CDT [facility] Platelet Count 355 150 - 420 x10E9/L 02/06/2024 5:17 AM CDT [facility] MPV 9.8 7.8 - 11.4 fL 02/06/2024 5:17 AM CDT [facility] Neutrophil % 69.1 41.0 - 74.0 % 02/06/2024 5:17 AM CDT [facility] Lymphocyte % 17.9 17.0 - 47.0 % 02/06/2024 5:17 AM CDT [facility] Monocyte % 10.9 3.0 - 11.0 % 02/06/2024 5:17 AM CDT [facility] Eosinophil % 1.1 0.0 - 7.0 % 02/06/2024 5:17 AM CDT [facility] Basophil % 0.3 0.0 - 1.6 % 02/06/2024 5:17 AM CDT [facility] Immature Granulocytes % 0.7 0.0 - 1.0 % 02/06/2024 5:17 AM CDT [facility] Neutrophil Absolute 9.99(H) 1.60 - 7.50 x10E9/L 02/06/2024 5:17 AM CDT [facility] Lymphocyte Absolute 2.58 1.00 - 4.40 x10E9/L 02/06/2024 5:17 AM CDT [facility] Monocyte Absolute 1.57(H) 0.15 - 1.00 x10E9/L 02/06/2024 5:17 AM CDT [facility] Eosinophil Absolute 0.16 0.00 - 0.60 x10E9/L 02/06/2024 5:17 AM CDT [facility] Basophil Absolute 0.04 0.00 - 0.13 x10E9/L 02/06/2024 5:17 AM CDT [facility] Blood BLOOD SPECIMEN / Unknown Line Draw / Unknown 02/06/2024 4:20 AM CDT 02/06/2024 4:31 AM CDT Iggy Cabrera MD LAB - HEMATOLOGY ORDERABLES [facility] [address] [place] [address] * (ABNORMAL) BASIC METABOLIC PANEL (CALCIUM TOTAL) (02/06/2024 4:20 AM CDT) Glucose 194(H) 70 - 105 mg/dL 02/06/2024 4:52 AM CDT [facility] Sodium 137 136 - 145 mmol/L 02/06/2024 4:52 AM CDT [facility] Potassium 4.8 3.5 - 5.1 mmol/L 02/06/2024 4:52 AM CDT [facility] Chloride 102 98 - 107 mmol/L 02/06/2024 4:52 AM CDT [facility] CO2 26 22 - 29 mmol/L 02/06/2024 4:52 AM CDT [facility] Calcium 9.5 8.4 - 10.4 mg/dL 02/06/2024 4:52 AM CDT [facility] Anion Gap 9 6 - 16 mmol/L 02/06/2024 4:52 AM CDT [facility] BUN 34(H) 7 - 26 mg/dL 02/06/2024 4:52 AM CDT [facility] Creatinine 1.21 0.72 - 1.25 mg/dL 02/06/2024 4:52 AM T [facility] eGFR by CKD-EPI 66(L) >=90 mL/min/1.7 3 m2 02/06/2024 4:52 AM CDT [facility] Blood BLOOD SPECIMEN / Unknown Line Draw / Unknown 02/06/2024 4:20 AM CDT 02/06/2024 4:31 AM CDT Chuy Siegel DO LAB - CHEMISTRY ORDE DUNG Performing Organization Address [facility] Co de Phone Number [facility] [address] [place] [phone] * MAGNESIUM BLOOD (02/06/2024 12:00 AM CDT) Magnesium 2.0 1.6 - 2.6 mg/dL 02/06/2024 12:25 AM CDT [facility] Blood BLOOD SPECIMEN / Unknown Line Draw / Unknown 02/06/2024 12:00 AM CDT 02/06/2024 12:09 AM CDT Travis Bhat CORPORATE FINANCIAL ANALYST-HAND CLERICAL VERIFIER LAB - CHEMISTRY ORDERABLES Performing Organization Address City/State/[facility] Co de Phone Number [facility] [id number] [place] [phone] * PHOSPHORUS BLOOD (02/06/2024 12:00 AM CDT) Phosphorus 3.7 2.3 - 4.7 mg/dL 02/06/2024 12:25 AM CDT [facility] Blood BLOOD SPECIMEN / Unknown Line Draw / Unknown 02/06/2024 12:00 AM CDT 02/06/2024 12:09 AM CDT Travis Bhat APRN-HAND CLERICAL VERIFIER LAB - CHEMISTRY ORDERABLES Performing Organization Address [facility] de Phone Number [facility] [address] [place] [address] [phone] * (ABNORMAL) GLUCOSE - POINT OF CARE (02/05/2024 11:59 PM CDT) Glucose WB/POC 227(H) 70 - 106 mg/dL 02/06/2024 12:04 AM CDT [facility] Specimen Type Venous 02/06/2024 12:04 AM CDT [facility] Blood BLOOD SPECIMEN / Unknown 02/05/2024 11:59 PM CDT 02/06/2024 12:04 AM CDT Sherie Beltre MD LAB - POINT OF CARE ORDERABLES Performing Organization Address [facility] Co de Phone Number [facility] [address] [place] [phone] * (ABNORMAL) GLUCOSE - POINT OF CARE (02/05/2024 10:23 PM CDT) Glucose WB/POC 226(H) 70 - 106 mg/dL 02/05/2024 10:28 PM CDT [facility] Specimen Type Cap Fingerstick 2023 10:28 PM CDT [facility] Blood BLOOD SPECIMEN / Unknown 02/05/2024 10:23 PM CDT 02/05/2024 10:27 PM CDT Sherie Beltre MD LAB - POINT OF CARE ORDERABLES Performing Organization Address City/[facility]/ZIP Co de Phone Number [facility] [address] [place] [address] [phone] * (ABNORMAL) GLUCOSE - POINT OF CARE (02/05/2024 5:58 PM CDT) Glucose WB/POC 204(H) 70 - 106 mg/dL 02/05/2024 6:02 PM CDT [facility] Specimen Type Cap Fingerstick 2023 6:02 PM CDT [facility] Blood BLOOD SPECIMEN / Unknown 02/05/2024 5:58 PM CDT 02/05/2024 6:02 PM CDT Sherie Beltre MD LAB - POINT OF CARE ORDERABLES Performing Organization Address [facility] Co de Phone Number [facility] [address] [place] [address] [phone] * (ABNORMAL) BASIC METABOLIC PANEL (CALCIUM TOTAL) (02/05/2024 5:32 PM CDT) Glucose 197(H) 70 - 105 mg/dL 02/05/2024 6:05 PM CDT [facility] Sodium 137 136 - 145 mmol/L 02/05/2024 6:05 PM CDT [facility] Potassium 5.0 3.5 - 5.1 mmol/L 02/05/2024 6:05 PM CDT [facility] Chloride 101 98 - 107 mmol/L 02/05/2024 6:05 PM CDT [facility] CO2 22 22 - 29 mmol/L 02/05/2024 6:05 PM CDT [facility] Calcium 9.4 8.4 - 10.4 mg/dL 02/05/2024 6:05 PM CDT [facility] Anion Gap 14 6 - 16 mmol/L 02/05/2024 6:05 PM CDT [facility] BUN 35(H) 7 - 26 mg/dL 02/05/2024 6:05 PM CDT [facility] Creatinine 1.27(H) 0.72 - 1.25 mg/dL 02/05/2024 6:05 PM CDT [facility] eGFR by CKD-EPI 63(L) >=90 mL/min/1.7 3 m2 02/05/2024 6:05 PM CDT [facility] Blood BLOOD SPECIMEN / Unknown Venipuncture / Unknown 02/05/2024 5:32 PM CDT 02/05/2024 5:46 PM CDT Chuy Siegel DO LAB - CHEMISTRY CHRISTIAN RAZO Performing Organization Address City/[facility]/ZIP Co de Phone Number [facility] [id number] [place] [phone] * (ABNORMAL) GLUCOSE - POINT OF CARE (02/05/2024 2:37 PM CDT) [facility] Glucose WB/POC 195(H) 70 - 106 mg/dL 02/06/2024 12:10 AM CDT [facility] Specimen Type Cap Fingerstick 2023 12:10 AM CDT [facility] Blood BLOOD SPECIMEN / Unknown 02/05/2024 2:37 PM CDT 02/06/2024 12:10 AM CDT Sherie Beltre MD LAB - POINT OF CARE ORDERABLES Performing Organization Address [facility] Co de Phone Number [facility] [id number] [place] [phone] * MAGNESIUM BLOOD (02/05/2024 11:05 AM CDT) [facility] Magnesium 2.2 1.6 - 2.6 mg/dL 02/05/2024 11:23 AM CDT [facility] Blood BLOOD SPECIMEN / Unknown Venipuncture / Unknown 02/05/2024 11:05 AM CDT 02/05/2024 11:08 AM CDT Travis Bhat CORPORATE FINANCIAL ANALYST-HAND CLERICAL VERIFIER LAB - CHEMISTRY ORDERABLES Performing Organization Address [facility]/ZIP Co de Phone Number [facility] [address] [place] [address] * (ABNORMAL) PHOSPHORUS BLOOD (02/05/2024 11:05 AM CDT) Phosphorus 5.9(H) 2.3 - 4.7 mg/dL 02/05/2024 11:23 AM CDT [facility] Blood BLOOD SPECIMEN / Unknown Venipuncture / Unknown 02/05/2024 11:05 AM CDT 02/05/2024 11:08 AM CDT Travis Bhat CORPORATE FINANCIAL ANALYST-HAND CLERICAL VERIFIER LAB - CHEMISTRY ORDERABLES Performing Organization Address City/[facility] Co de Phone Number [facility] [address] [place] [address] * (ABNORMAL) GLUCOSE - POINT OF CARE (02/05/2024 10:54 AM CDT) Glucose WB/POC 184(H) 70 - 106 mg/dL 02/05/2024 12:09 PM CDT [facility] Specimen Type Cap Fingerstick 2023 12:09 PM CDT [facility] Blood BLOOD SPECIMEN / Unknown 02/05/2024 10:54 AM CDT 02/05/2024 12:09 PM CDT Sherie Beltre MD LAB - POINT OF CARE ORDERABLES Performing Organization Address City/[facility] Co de Phone Number [facility] [address] [place] [address] * XR CHEST 1VW PORTABLE (02/05/2024 9:00 AM CDT) Anatomical Region Laterality Modality Chest Radiographic Love ging 02/05/2024 9:10 AM CDT Impressions 02/05/2024 9:15 AM CDT IMPRESSION: Interval tracheostomy without pneumomediastinum or pneumothorax. Edited by Laure Myrick on 02/05/2024 9:14 AM > Interpreting Provider: Hamlet Ybarra MD on 02/05/2024 9:15 AM Narrative 02/05/2024 9:15 AM CDT PROCEDURE: ??XR CHEST 1VW PORTABLE, DATE/TIME OF EXAM: ??02/05/2024 9:04 AM, LOCATION ??[facility] INDICATION: 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) ADDITIONAL CLINICAL INFORMATION: Ordering Provider Reason For Exam: Technologist Note: Additional: ??Tracheostomy tube placement. COMPARISON: None. FINDINGS: Nonstandard portable exam. Comparison February 02, 2024. Tracheostomy has been placed. Tip is at the clavicle level. Left neck central venous catheter tip superimposes the SVC. No pneumothorax. Basilar interstitial infiltrates slightly increased bilateral likely related to lesser inspiratory lung volumes. Post median sternotomy with the heart size upper normal. Procedure Note Hamlet Ybarra MD - 02/05/2024 PROCEDURE: XR CHEST 1VW PORTABLE, DATE/TIME OF EXAM: 02/05/2024 9:04AM, LOCATION [facility] INDICATION: 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) ADDITIONAL CLINICAL INFORMATION: Ordering Provider Reason For Exam: Technologist Note: Additional: Tracheostomy tube placement. COMPARISON: None. FINDINGS: Nonstandard portable exam. Comparison February 02, 2024. Tracheostomy has been placed. Tip is at the clavicle level. Left neck central venous catheter tip superimposes the SVC. No pneumothorax.Basilar interstitial infiltrates slightly increased bilateral likely related to lesser inspiratory lung volumes. Post median sternotomy with the heartsize upper normal. IMPRESSION: Interval tracheostomy without pneumomediastinum or pneumothorax. Edited by Laure Myrick on 02/05/2024 9:14 AM > Interpreting Provider: Hamlet Ybarra MD on 02/05/2024 9:15 AM Chuy Siegel DO DIAGNOSTIC IMAGING O RDERABLES * (ABNORMAL) GLUCOSE - POINT OF CARE (02/05/2024 5:56 AM CDT) Glucose WB/POC 172(H) 70 - 106 mg/dL 02/05/2024 6:14 AM CDT [facility] Specimen Type Cap Fingerstick 2023 6:14 AM CDT [facility] Blood BLOOD SPECIMEN / Unknown 02/05/2024 5:56 AM CDT 02/05/2024 6:14 AM CDT Sherie Beltre MD LAB - POINT OF CARE ORDERABLES Performing Organization Address City/[facility]/ZIP Co de Phone Number [facility] [address] [place], [place] [phone] * (ABNORMAL) BASIC METABOLIC PANEL (CALCIUM TOTAL) (02/05/2024 3:31 AM CDT) [facility] Glucose 171(H) 70 - 105 mg/dL 02/05/2024 4:24 AM CDT [facility] Sodium 136 136 - 145 mmol/L 02/05/2024 4:24 AM CDT [facility] Potassium 4.5 3.5 - 5.1 mmol/L 02/05/2024 4:24 AM CDT [facility] Chloride 102 98 - 107 mmol/L 02/05/2024 4:24 AM CDT [facility] CO2 26 22 - 29 mmol/L 02/05/2024 4:24 AM CDT [facility] Calcium 9.4 8.4 - 10.4 mg/dL 02/05/2024 4:24 AM CDT [facility] Anion Gap 8 6 - 16 mmol/L 02/05/2024 4:24 AM CDT [facility] BUN 36(H) 7 - 26 mg/dL 02/05/2024 4:24 AM CDT [facility] Creatinine 1.32(H) 0.72 - 1.25 mg/dL 02/05/2024 4:24 AM CDT [facility] eGFR by CKD-EPI 60(L) >=90 mL/min/1.7 3 m2 02/05/2024 4:24 AM CDT [facility] Blood BLOOD SPECIMEN / Unknown Line Draw / Unknown 02/05/2024 3:31 AM CDT 02/05/2024 3:49 AM CDT Chuy Siegel DO LAB - CHEMISTRY ORDE DUNG Performing Organization Address City/[facility]/ZIP Co de Phone Number [facility] [address] [place] [address] * (ABNORMAL) CBC W AUTO DIFFERENTIAL (02/05/2024 3:31 AM CDT) [facility] WBC 14.4(H) 4.0 - 10.7 x10E9/L 02/05/2024 3:57 AM CDT [facility] RBC Count 3.72(L) 4.30 - 5.80 x10E12/L 02/05/2024 3:57 AM CDT [facility] Hemoglobin 11.0(L) 13.3 - 17.5 g/dL 02/05/2024 3:57 AM CDT [facility] Hematocrit 33.9(L) 38.7 - 51.1 % 02/05/2024 3:57 AM CDT [facility] MCV 91.1 80.0 - 98.0 fL 02/05/2024 3:57 AM CDT [facility] MCH 29.6 26.7 - 33.6 pg 02/05/2024 3:57 AM CDT [facility] MCHC 32.4 31.7 - 36.3 g/dL 02/05/2024 3:57 AM CDT [facility] RDW-CV 14.1 11.3 - 14.8 % 02/05/2024 3:57 AM CDT [facility] Platelet Count 325 150 - 420 x10E9/L 02/05/2024 3:57 AM CDT [facility] MPV 9.8 7.8 - 11.4 fL 02/05/2024 3:57 AM CDT [facility] Neutrophil % 70.6 41.0 - 74.0 % 02/05/2024 3:57 AM CDT [facility] Lymphocyte % 17.4 17.0 - 47.0 % 02/05/2024 3:57 AM CDT [facility] Monocyte % 9.2 3.0 - 11.0 % 02/05/2024 3:57 AM CDT [facility] Eosinophil % 1.9 0.0 - 7.0 % 02/05/2024 3:57 AM CDT [facility] Basophil % 0.2 0.0 - 1.6 % 02/05/2024 3:57 AM CDT [facility] Immature Granulocytes % 0.7 0.0 - 1.0 % 02/05/2024 3:57 AM CDT [facility] Neutrophil Absolute 10.13(H) 1.60 - 7.50 x10E9/L 02/05/2024 3:57 AM CDT [facility] Lymphocyte Absolute 2.50 1.00 - 4.40 x10E9/L 02/05/2024 3:57 AM CDT [facility] Monocyte Absolute 1.32(H) 0.15 - 1.00 x10E9/L 02/05/2024 3:57 AM CDT [facility] Eosinophil Absolute 0.27 0.00 - 0.60 x10E9/L 02/05/2024 3:57 AM CDT [facility] Basophil Absolute 0.03 0.00 - 0.13 x10E9/L 02/05/2024 3:57 AM CDT [facility] Blood BLOOD SPECIMEN / Unknown Line Draw / Unknown 02/05/2024 3:31 AM CDT 02/05/2024 3:49 AM CDT Chuy Siegel DO LAB - HEMATOLOGY ORD ERABLES Performing Organization Address City/[facility] Co de Phone Number [facility] [address] [place], [place] [phone] * MAGNESIUM BLOOD (02/04/2024 11:36 PM CDT) Magnesium 2.1 1.6 - 2.6 mg/dL 02/05/2024 12:02 AM CDT [facility] Blood BLOOD SPECIMEN / Unknown Line Draw / Unknown 02/04/2024 11:36 PM CDT 02/04/2024 11:38 PM CDT Travis Bhat CORPORATE FINANCIAL ANALYST-HAND CLERICAL VERIFIER LAB - CHEMISTRY ORDERABLES Performing Organization Address [facility]/ZIP Co de Phone Number [facility] [address] [place] [address] * (ABNORMAL) PHOSPHORUS BLOOD (02/04/2024 11:36 PM CDT) Phosphorus 4.8(H) 2.3 - 4.7 mg/dL 02/05/2024 12:02 AM CDT [facility] Blood BLOOD SPECIMEN / Unknown Line Draw / Unknown 02/04/2024 11:36 PM CDT 02/04/2024 11:38 PM CDT Travis TAPIA LAB - CHEMISTRY ORDERABLES Performing Organization Address [facility] Co de Phone Number [facility] [address] [place] [address] * (ABNORMAL) GLUCOSE - POINT OF CARE (02/04/2024 11:34 PM CDT) Pathologist [facility] Glucose WB/POC 182(H) 70 - 106 mg/dL 02/05/2024 12:04 AM CDT [facility] Specimen Type Venous 02/05/2024 12:04 AM CDT [facility] Blood BLOOD SPECIMEN / Unknown 02/04/2024 11:34 PM CDT 02/05/2024 12:04 AM CDT Sherie Beltre MD LAB - POINT OF CARE ORDERABLES Performing Organization Address [facility] Co de Phone Number [facility] [address] [place] [address] * (ABNORMAL) BASIC METABOLIC PANEL (CALCIUM TOTAL) (02/04/2024 4:32 PM CDT) [facility] Glucose 178(H) 70 - 105 mg/dL 02/04/2024 5:22 PM CDT [facility] Sodium 134(L) 136 - 145 mmol/L 02/04/2024 5:22 PM CDT [facility] Potassium 4.7 3.5 - 5.1 mmol/L 02/04/2024 5:22 PM CDT [facility] Chloride 101 98 - 107 mmol/L 02/04/2024 5:22 PM CDT [facility] CO2 25 22 - 29 mmol/L 02/04/2024 5:22 PM CDT [facility] Calcium 9.3 8.4 - 10.4 mg/dL 02/04/2024 5:22 PM CDT [facility] Anion Gap 8 6 - 16 mmol/L 02/04/2024 5:22 PM CDT [facility] BUN 33(H) 7 - 26 mg/dL 02/04/2024 5:22 PM CDT [facility] Creatinine 1.32(H) 0.72 - 1.25 mg/dL 02/04/2024 5:22 PM CDT [facility] eGFR by CKD-EPI 60(L) >=90 mL/min/1.7 3 m2 02/04/2024 5:22 PM CDT [facility] Blood BLOOD SPECIMEN / Unknown Venipuncture / Unknown 02/04/2024 4:32 PM CDT 02/04/2024 5:00 PM CDT Chyu Siegel DO LAB - CHEMISTRY ORDE DUNG Performing Organization Address [facility] Co de Phone Number [facility] [address] [place] [address] * (ABNORMAL) GLUCOSE - POINT OF CARE (02/04/2024 4:31 PM CDT) Glucose WB/POC 189(H) 70 - 106 mg/dL 02/04/2024 4:36 PM CDT [facility] Specimen Type Cap Fingerstick 2023 4:36 PM CDT [facility] Blood BLOOD SPECIMEN / Unknown 02/04/2024 4:31 PM CDT 02/04/2024 4:36 PM CDT Sherie Beltre MD LAB - POINT OF CARE ORDERABLES Performing Organization Address [facility] Co de Phone Number [facility] [address] [place] [address] * MAGNESIUM BLOOD (02/04/2024 11:40 AM CDT) Magnesium 2.1 1.6 - 2.6 mg/dL 02/04/2024 12:05 PM CDT [facility] Blood BLOOD SPECIMEN / Unknown Venipuncture / Unknown 02/04/2024 11:40 AM CDT 02/04/2024 11:48 AM CDT Travis Bhat APRN-HAND CLERICAL VERIFIER LAB - CHEMISTRY ORDERABLES Performing Organization Address City/[facility]/ZIP Co de Phone Number [facility] [address] [place] [address] * (ABNORMAL) PHOSPHORUS BLOOD (02/04/2024 11:40 AM CDT) Phosphorus 5.1(H) 2.3 - 4.7 mg/dL 02/04/2024 12:05 PM CDT [facility] Blood BLOOD SPECIMEN / Unknown Venipuncture / Unknown 02/04/2024 11:40 AM CDT 02/04/2024 11:48 AM CDT Travis Bhat CORPORATE FINANCIAL ANALYST-HAND CLERICAL VERIFIER LAB - CHEMISTRY ORDERABLES Performing Organization Address City/[facility] Co de Phone Number [facility] [address] [place] [address] [phone] * (ABNORMAL) GLUCOSE - POINT OF CARE (02/04/2024 11:32 AM CDT) Glucose WB/POC 197(H) 70 - 106 mg/dL 02/04/2024 2:09 PM CDT [facility] Specimen Type Cap Fingerstick 2023 2:09 PM CDT [facility] Blood BLOOD SPECIMEN / Unknown 02/04/2024 11:32 AM CDT 02/04/2024 2:09 PM CDT Sherie Beltre MD LAB - POINT OF CARE ORDERABLES Performing Organization Address City/[facility]/ZIP Co de Phone Number [facility] [address] [place] [phone] * (ABNORMAL) GLUCOSE - POINT OF CARE (02/04/2024 6:04 AM CDT) Glucose WB/POC 215(H) 70 - 106 mg/dL 02/04/2024 6:09 AM CDT [facility] Specimen Type Cap Fingerstick 2023 6:09 AM CDT [facility] Blood BLOOD SPECIMEN / Unknown 02/04/2024 6:04 AM CDT 02/04/2024 6:09 AM CDT Yessenia Kerr MD LAB - POINT OF CARE ORDERABLES [facility] [address] [place] [address] * (ABNORMAL) CBC W AUTO DIFFERENTIAL (02/04/2024 3:28 AM CDT) WBC 16.4(H) 4.0 - 10.7 x10E9/L 02/04/2024 3:53 AM CDT [facility] RBC Count 3.94(L) 4.30 - 5.80 x10E12/L 02/04/2024 3:53 AM CDT [facility] Hemoglobin 11.5(L) 13.3 - 17.5 g/dL 02/04/2024 3:53 AM CDT [facility] Hematocrit 35.6(L) 38.7 - 51.1 % 02/04/2024 3:53 AM CDT [facility] MCV 90.4 80.0 - 98.0 fL 02/04/2024 3:53 AM CDT [facility] MCH 29.2 26.7 - 33.6 pg 02/04/2024 3:53 AM CDT [facility] MCHC 32.3 31.7 - 36.3 g/dL 02/04/2024 3:53 AM CDT [facility] RDW-CV 13.8 11.3 - 14.8 % 02/04/2024 3:53 AM CDT [facility] Platelet Count 326 150 - 420 x10E9/L 02/04/2024 3:53 AM CDT [facility] MPV 9.5 7.8 - 11.4 fL 02/04/2024 3:53 AM CDT [facility] Neutrophil % 66.7 41.0 - 74.0 % 02/04/2024 3:53 AM CDT [facility] Lymphocyte % 21.6 17.0 - 47.0 % 02/04/2024 3:53 AM CDT [facility] Monocyte % 8.6 3.0 - 11.0 % 02/04/2024 3:53 AM CDT [facility] Eosinophil % 2.1 0.0 - 7.0 % 02/04/2024 3:53 AM CDT [facility] Basophil % 0.2 0.0 - 1.6 % 02/04/2024 3:53 AM CDT [facility] Immature Granulocytes % 0.8 0.0 - 1.0 % 02/04/2024 3:53 AM CDT [facility] Neutrophil Absolute 10.95(H) 1.60 - 7.50 x10E9/L 02/04/2024 3:53 AM CDT [facility] Lymphocyte Absolute 3.54 1.00 - 4.40 x10E9/L 02/04/2024 3:53 AM CDT [facility] Monocyte Absolute 1.42(H) 0.15 - 1.00 x10E9/L 02/04/2024 3:53 AM CDT [facility] Eosinophil Absolute 0.34 0.00 - 0.60 x10E9/L 02/04/2024 3:53 AM CDT [facility] Basophil Absolute 0.04 0.00 - 0.13 x10E9/L 02/04/2024 3:53 AM CDT [facility] Blood BLOOD SPECIMEN / Unknown Line Draw / Unknown 02/04/2024 3:28 AM CDT 02/04/2024 3:48 AM CDT Chuy Siegel DO LAB - HEMATOLOGY ORD ERABLES Performing Organization Address City/[facility]/ZIP Co de Phone Number [facility] [address] [place] [address] * (ABNORMAL) TRIGLYCERIDES BLOOD (02/04/2024 3:28 AM CDT) [facility] Triglycerides 190(H) <150 mg/dL 02/04/2024 4:07 AM CDT [facility] Blood BLOOD SPECIMEN / Unknown Line Draw / Unknown 02/04/2024 3:28 AM CDT 02/04/2024 3:48 AM CDT Kel Jacome MD LAB - CHEMISTRY ORDE DUNG Performing Organization Address City/[facility]/ZIP Co de Phone Number [facility] [address] [place] [address] * MAGNESIUM BLOOD (02/03/2024 11:34 PM CDT) Magnesium 2.1 1.6 - 2.6 mg/dL 02/04/2024 12:12 AM CDT [facility] Blood BLOOD SPECIMEN / Unknown Venipuncture / Unknown 02/03/2024 11:34 PM CDT 02/03/2024 11:54 PM CDT Travis Bhat APRNPETER [facility] LAB - CHEMISTRY ORDERABLES Performing Organization Address [facility] de Phone Number [facility] [address] [place] [phone] * (ABNORMAL) PHOSPHORUS BLOOD (02/03/2024 11:34 PM CDT) Phosphorus 5.4(H) 2.3 - 4.7 mg/dL 02/04/2024 12:10 AM CDT [facility] Blood BLOOD SPECIMEN / Unknown Venipuncture / Unknown 02/03/2024 11:34 PM CDT 02/03/2024 11:54 PM CDT Travis Bhat APRNPETER [facility] LAB - CHEMISTRY ORDERABLES Performing Organization Address [facility] de Phone Number [facility] [address] [place] [phone] * (ABNORMAL) BASIC METABOLIC PANEL (CALCIUM TOTAL) (02/03/2024 11:34 PM CDT) Glucose 220(H) 70 - 105 mg/dL 02/04/2024 12:12 AM CDT [facility] Sodium 135(L) 136 - 145 mmol/L 02/04/2024 12:12 AM CDT [facility] Potassium 4.4 3.5 - 5.1 mmol/L 02/04/2024 12:12 AM CDT [facility] Chloride 100 98 - 107 mmol/L 02/04/2024 12:12 AM CDT [facility] CO2 27 22 - 29 mmol/L 02/04/2024 12:12 AM CDT [facility] Calcium 9.3 8.4 - 10.4 mg/dL 02/04/2024 12:12 AM CDT [facility] Anion Gap 8 6 - 16 mmol/L 02/04/2024 12:12 AM CDT [facility] BUN 40(H) 7 - 26 mg/dL 02/04/2024 12:12 AM CDT [facility] Creatinine 1.43(H) 0.72 - 1.25 mg/dL 02/04/2024 12:12 AM CDT [facility] eGFR by CKD-EPI 54(L) >=90 mL/min/1.7 3 m2 02/04/2024 12:12 AM CDT [facility] Blood BLOOD SPECIMEN / Unknown Venipuncture / Unknown 02/03/2024 11:34 PM CDT 02/03/2024 11:54 PM CDT [facility] - CHEMISTRY ORDERABLES Performing Organization Address [facility] Co de Phone Number [facility] [id number] [place] [address] * (ABNORMAL) GLUCOSE - POINT OF CARE (02/03/2024 11:32 PM CDT) Glucose WB/POC 181(H) 70 - 106 mg/dL 02/04/2024 12:37 AM CDT [facility] Specimen Type Cap Fingerstick 2023 12:37 AM CDT [facility] Blood BLOOD SPECIMEN / Unknown 02/03/2024 11:32 PM CDT 02/04/2024 12:37 AM CDT Yessenia Kerr MD LAB - POINT OF CARE ORDERABLES Performing Organization Address City/[facility] Co de Phone Number [facility] [address] [place] [address] * (ABNORMAL) GLUCOSE - POINT OF CARE (02/03/2024 5:28 PM CDT) Glucose WB/POC 202(H) 70 - 106 mg/dL 02/03/2024 6:23 PM CDT [facility] Specimen Type Cap Fingerstick 2023 6:23 PM CDT [facility] Blood BLOOD SPECIMEN / Unknown 02/03/2024 5:28 PM CDT 02/03/2024 6:23 PM CDT Yessenia Kerr MD LAB - POINT OF CARE ORDERABLES Performing Organization Address [facility] Co de Phone Number [facility] [address] [place] [address] * (ABNORMAL) GLUCOSE - POINT OF CARE (02/03/2024 11:53 AM CDT) Pathologist [facility] Glucose WB/POC 233(H) 70 - 106 mg/dL 02/03/2024 1:18 PM CDT [facility] Specimen Type Cap Fingerstick 2023 1:18 PM CDT [facility] Blood BLOOD SPECIMEN / Unknown 02/03/2024 11:53 AM CDT 02/03/2024 1:18 PM CDT Yessenia Kerr MD LAB - POINT OF CARE ORDERABLES Performing Organization Address [facility] Center de Phone Number [facility] [id number] [place] [address] * (ABNORMAL) DIFFERENTIAL MANUAL (02/03/2024 10:01 AM CDT) Pathologist [facility] Neutrophil % 56 41 - 74 % 02/03/2024 10:56 AM CDT [facility] Lymphocyte % 28 17 - 47 % 02/03/2024 10:56 AM CDT [facility] Monocyte % 13(H) 3 - 11 % 02/03/2024 10:56 AM CDT [facility] Eosinophil % 3 0 - 7 % 02/03/2024 10:56 AM CDT [facility] Neutrophil Absolute 8.51(H) 1.60 - 7.50 x10E9/L 02/03/2024 10:56 AM CDT [facility] Lymphocyte Absolute 4.26 1.00 - 4.40 x10E9/L 02/03/2024 10:56 AM CDT [facility] Monocyte Absolute 1.98(H) 0.15 - 1.00 x10E9/L 02/03/2024 10:56 AM CDT [facility] Eosinophil Absolute 0.46 0.00 - 0.60 x10E9/L 02/03/2024 10:56 AM CDT [facility] RBC Morphology RED CELL INDICIES CONFIRMED 02/03/2024 10:56 AM CDT [facility] Blood BLOOD SPECIMEN / Unknown Venipuncture / Unknown 02/03/2024 10:01 AM CDT 02/03/2024 10:19 AM CDT Chuy Siegel DO LAB - HEMATOLOGY ORD ERABLES [facility] [address] [place] [address] * (ABNORMAL) CBC W AUTO DIFFERENTIAL (02/03/2024 10:01 AM CDT) WBC 15.2(H) 4.0 - 10.7 x10E9/L 02/03/2024 10:56 AM CDT [facility] RBC Count 3.98(L) 4.30 - 5.80 x10E12/L 02/03/2024 10:56 AM CDT [facility] Hemoglobin 11.7(L) 13.3 - 17.5 g/dL 02/03/2024 10:56 AM CDT [facility] Hematocrit 36.1(L) 38.7 - 51.1 % 02/03/2024 10:56 AM CDT [facility] MCV 90.7 80.0 - 98.0 fL 02/03/2024 10:56 AM CDT [facility] MCH 29.4 26.7 - 33.6 pg 02/03/2024 10:56 AM CDT [facility] MCHC 32.4 31.7 - 36.3 g/dL 02/03/2024 10:56 AM CDT [facility] RDW-CV 13.8 11.3 - 14.8 % 02/03/2024 10:56 AM CDT [facility] Platelet Count 325 150 - 420 x10E9/L 02/03/2024 10:56 AM CDT [facility] MPV 10.0 7.8 - 11.4 fL 02/03/2024 10:56 AM CDT [facility] Blood BLOOD SPECIMEN / Unknown Venipuncture / Unknown 02/03/2024 10:01 AM CDT 02/03/2024 10:19 AM CDT Chuy Siegel DO LAB - HEMATOLOGY ORD ERABLES Performing Organization Address [facility] Co de Phone Number [facility] [id number] [place] [address] * MAGNESIUM BLOOD (02/03/2024 10:01 AM CDT) Magnesium 2.3 1.6 - 2.6 mg/dL 02/03/2024 10:49 AM CDT [facility] Blood BLOOD SPECIMEN / Unknown Venipuncture / Unknown 02/03/2024 10:01 AM CDT 02/03/2024 10:19 AM CDT Travis Bhat APRN-HAND CLERICAL VERIFIER LAB - CHEMISTRY ORDERABLES Performing Organization Address [facility] de Phone Number [facility] [address] [place] [address] * PHOSPHORUS BLOOD (02/03/2024 10:01 AM CDT) Phosphorus 4.6 2.3 - 4.7 mg/dL 02/03/2024 10:49 AM CDT [facility] Blood BLOOD SPECIMEN / Unknown Venipuncture / Unknown 02/03/2024 10:01 AM CDT 02/03/2024 10:19 AM CDT Travis Bhat CORPORATE FINANCIAL ANALYST-HAND CLERICAL VERIFIER LAB - CHEMISTRY ORDERABLES Performing Organization Address [facility] de Phone Number [facility] [address] [place] [address] * (ABNORMAL) BASIC METABOLIC PANEL (CALCIUM TOTAL) (02/03/2024 10:01 AM CDT) Glucose 228(H) 70 - 105 mg/dL 02/03/2024 10:49 AM CDT [facility] Sodium 136 136 - 145 mmol/L 02/03/2024 10:49 AM CDT [facility] Potassium 4.4 3.5 - 5.1 mmol/L 02/03/2024 10:49 AM CDT [facility] Chloride 100 98 - 107 mmol/L 02/03/2024 10:49 AM CDT [facility] CO2 25 22 - 29 mmol/L 02/03/2024 10:49 AM CDT [facility] Calcium 9.6 8.4 - 10.4 mg/dL 02/03/2024 10:49 AM CDT [facility] Anion Gap 11 6 - 16 mmol/L 02/03/2024 10:49 AM CDT [facility] BUN 35(H) 7 - 26 mg/dL 02/03/2024 10:49 AM CDT [facility] Creatinine 1.71(H) 0.72 - 1.25 mg/dL 02/03/2024 10:49 AM T [facility] eGFR by CKD-EPI 44(L) >=90 mL/min/1.7 3 m2 02/03/2024 10:49 AM CDT [facility] Blood BLOOD SPECIMEN / Unknown Venipuncture / Unknown 02/03/2024 10:01 AM CDT 02/03/2024 10:19 AM CDT Travis Bhat APRN-HAND CLERICAL VERIFIER LAB - CHEMISTRY ORDERABLES [facility] [address] [place] [phone] * (ABNORMAL) GLUCOSE - POINT OF CARE (02/03/2024 6:06 AM CDT) [facility] Glucose WB/POC 249(H) 70 - 106 mg/dL 02/03/2024 6:09 AM CDT [facility] Specimen Type Cap Fingerstick 2023 6:09 AM CDT [facility] Blood BLOOD SPECIMEN / Unknown 02/03/2024 6:06 AM CDT 02/03/2024 6:09 AM CDT Yessenia Kerr MD LAB - POINT OF CARE ORDERABLES [facility] [address] [place] [address] * MAGNESIUM BLOOD (02/02/2024 11:30 PM CDT) Pathologist [facility] Magnesium 2.5 1.6 - 2.6 mg/dL 02/02/2024 11:52 PM CDT [facility] Blood BLOOD SPECIMEN / Unknown Venipuncture / Unknown 02/02/2024 11:30 PM CDT 02/02/2024 11:35 PM CDT Travis Bhat CORPORATE FINANCIAL ANALYST-HAND CLERICAL VERIFIER LAB - CHEMISTRY ORDERABLES Performing Organization Address [facility] de Phone Number [facility] [address] [place] [address] * PHOSPHORUS BLOOD (02/02/2024 11:30 PM CDT) [facility] Phosphorus 4.6 2.3 - 4.7 mg/dL 02/02/2024 11:51 PM CDT [facility] Blood BLOOD SPECIMEN / Unknown Venipuncture / Unknown 02/02/2024 11:30 PM CDT 02/02/2024 11:35 PM CDT Travis Bhat CORPORATE FINANCIAL ANALYST-[facility] LAB - CHEMISTRY ORDERABLES Performing Organization Address [facility] de Phone Number [facility] [address] [place] [address] * (ABNORMAL) BASIC METABOLIC PANEL (CALCIUM TOTAL) (02/02/2024 11:30 PM CDT) Pathologist [facility] Glucose 195(H) 70 - 105 mg/dL 02/02/2024 11:52 PM CDT [facility] Sodium 136 136 - 145 mmol/L 02/02/2024 11:52 PM CDT [facility] Potassium 4.3 3.5 - 5.1 mmol/L 02/02/2024 11:52 PM CDT [facility] Chloride 99 98 - 107 mmol/L 02/02/2024 11:52 PM CDT [facility] CO2 24 22 - 29 mmol/L 02/02/2024 11:52 PM CDT [facility] Calcium 9.3 8.4 - 10.4 mg/dL 02/02/2024 11:52 PM CDT [facility] Anion Gap 13 6 - 16 mmol/L 02/02/2024 11:52 PM CDT [facility] BUN 28(H) 7 - 26 mg/dL 02/02/2024 11:52 PM CDT [facility] Creatinine 1.75(H) 0.72 - 1.25 mg/dL 02/02/2024 11:52 PM CDT [facility] eGFR by CKD-EPI 43(L) >=90 mL/min/1.7 3 m2 02/02/2024 11:52 PM CDT [facility] Blood BLOOD SPECIMEN / Unknown Venipuncture / Unknown 02/02/2024 11:30 PM CDT 02/02/2024 11:35 PM CDT Travis Bhat APRN-HAND CLERICAL VERIFIER LAB - CHEMISTRY ORDERABLES Performing Organization Address [facility] Co de Phone Number [facility] [address] [place] [address] * (ABNORMAL) GLUCOSE - POINT OF CARE (02/02/2024 11:29 PM CDT) [facility] Glucose WB/POC 209(H) 70 - 106 mg/dL 02/02/2024 11:36 PM CDT [facility] Specimen Type Venous 02/02/2024 11:36 PM CDT [facility] Blood BLOOD SPECIMEN / Unknown 02/02/2024 11:29 PM CDT 02/02/2024 11:36 PM CDT Yessenia Kerr MD LAB - POINT OF CARE ORDERABLES Performing Organization Address [facility] Co de Phone Number [facility] [address] [place] [address] * XR CHEST POST ETT (02/02/2024 5:23 PM CDT) Anatomical Region Laterality Modality Chest [...] MD DIAGNOSTIC IMAGING O RDERABLES * (ABNORMAL) GLUCOSE - POINT OF CARE (02/02/2024 5:01 PM CDT) [facility] Glucose WB/POC 130(H) 70 - 106 mg/dL 02/03/2024 5:50 AM CDT [facility] Specimen Type Cap Fingerstick 2023 5:50 AM CDT [facility] Blood BLOOD SPECIMEN / Unknown 02/02/2024 5:01 PM CDT 02/03/2024 5:50 AM CDT Yessenia Kerr MD LAB - POINT OF CARE ORDERABLES [facility] [address] [place] [address] * (ABNORMAL) BLOOD GASES ARTERIAL (02/02/2024 4:09 PM CDT) Pathologist [facility] pH Arterial 7.55(H) 7.35 - 7.45 pH [...] City/State/[facility] Co de Phone Number [facility] [address] [phone] * XR ABDOMEN KUB (02/02/2024 1:20 PM CDT) Anatomical Region Laterality Modality Abdomen Radiographic Love ging 02/02/2024 1:27 PM CDT Narrative 02/02/2024 1:27 PM CDT PROCEDURE: ??XR ABDOMEN KUB DATE/TIME OF EXAM: ??02/02/2024 1:24 PM CLINICAL INFORMATION: None relevant/not provided if blank. Indication: R09.02: Hypoxemia Constipation COMPARISON: 01/26/2024 FINDINGS: Percutaneous gastrostomy tube overlies the gastric antrum. Bowel gas pattern within normal limits. > Interpreting Provider: Alexys Koo MD on 02/02/2024 1:27 PM Procedure Note Alexys Koo MD - 02/02/2024 PROCEDURE: XR ABDOMEN KUB DATE/TIME OF EXAM: 02/02/2024 1:24 PM CLINICAL INFORMATION: None relevant/not provided if blank. Indication: R09.02: Hypoxemia Constipation COMPARISON: 01/26/2024 FINDINGS: Percutaneous gastrostomy tube overlies the gastric antrum. Bowel gas pattern within normal limits. > Interpreting Provider: Alexys Koo MD on 02/02/2024 1:27 PM Manisha Terry MD DIAGNOSTIC IM AGING ORDERABLES * XR CHEST 1VW PORTABLE (02/02/2024 1:10 PM CDT) Anatomical Region Laterality Modality Chest Radiographic Love ging 02/02/2024 1:26 PM CDT Narrative 02/02/2024 1:27 PM CDT PROCEDURE: ??XR CHEST 1VW PORTABLE DATE/TIME OF EXAM: ??02/02/2024 1:24 PM CLINICAL INFORMATION: None relevant/not provided if blank. Indication: R09.02: Hypoxemia COMPARISON: 01/24/2024 FINDINGS: The lateral lung norman clear. Stable heart size. Intact median sternotomy. No pneumothorax or pleural effusion. Endotracheal and esophagogastric tubes have been removed. Central line has been removed. > Interpreting Provider: Alexys Koo MD on 02/02/2024 1:27 PM Procedure Note Alexys Koo MD - 02/02/2024 PROCEDURE: XR CHEST 1VW PORTABLE DATE/TIME OF EXAM: 02/02/2024 1:24 PM CLINICAL INFORMATION: None relevant/not provided if blank. Indication: R09.02: Hypoxemia COMPARISON: 01/24/2024 FINDINGS: The lateral lung norman clear. Stable heart size. Intact mediansternotomy. No pneumothorax or pleural effusion. Endotracheal and esophagogastrictubes have been removed. Central line has been removed. > Interpreting Provider: Alexys Koo MD on 02/02/2024 1:27 PM Manisha Terry MD DIAGNOSTIC IM AGING ORDERABLES * (ABNORMAL) GLUCOSE - POINT OF CARE (02/02/2024 11:56 AM CDT) Glucose WB/POC 202(H) 70 - 106 mg/dL 02/02/2024 12:02 PM CDT [facility] Specimen Type Cap Fingerstick 2023 12:02 PM CDT [facility] Blood BLOOD SPECIMEN / Unknown 02/02/2024 11:56 AM CDT 02/02/2024 12:02 PM CDT Yessenia Kerr MD LAB - POINT OF CARE ORDERABLES Performing Organization Address [facility] Co de Phone Number [facility] [address] [place] [address] [phone] * (ABNORMAL) MAGNESIUM BLOOD (02/02/2024 10:54 AM CDT) Pathologist [facility] Magnesium 1.5(L) 1.6 - 2.6 mg/dL 02/02/2024 11:18 AM CDT [facility] Blood BLOOD SPECIMEN / Unknown Venipuncture / Unknown 02/02/2024 10:54 AM CDT 02/02/2024 11:02 AM CDT Travis Bhat APRN-HAND CLERICAL VERIFIER LAB - CHEMISTRY ORDERABLES Performing Organization Address [facility] Co de Phone Number [facility] [id number] [place] [address] * PHOSPHORUS BLOOD (02/02/2024 10:54 AM CDT) Phosphorus 4.4 2.3 - 4.7 mg/dL 02/02/2024 11:17 AM CDT [facility] Blood BLOOD SPECIMEN / Unknown Venipuncture / Unknown 02/02/2024 10:54 AM CDT 02/02/2024 11:02 AM CDT Travis Bhat CORPORATE FINANCIAL ANALYST-HAND CLERICAL VERIFIER LAB - CHEMISTRY ORDERABLES Performing Organization Address City/[facility]/ZIP Co de Phone Number [facility] [address] [place] [address] * (ABNORMAL) BASIC METABOLIC PANEL (CALCIUM TOTAL) (02/02/2024 10:54 AM CDT) Glucose 218(H) 70 - 105 mg/dL 02/02/2024 11:18 AM CDT [facility] Sodium 136 136 - 145 mmol/L 02/02/2024 11:18 AM CDT [facility] Potassium 4.5 3.5 - 5.1 mmol/L 02/02/2024 11:18 AM CDT [facility] Chloride 101 98 - 107 mmol/L 02/02/2024 11:18 AM CDT [facility] CO2 27 22 - 29 mmol/L 02/02/2024 11:18 AM CDT [facility] Calcium 9.3 8.4 - 10.4 mg/dL 02/02/2024 11:18 AM CDT [facility] Anion Gap 8 6 - 16 mmol/L 02/02/2024 11:18 AM CDT [facility] BUN 21 7 - 26 mg/dL 02/02/2024 11:18 AM CDT [facility] Creatinine 0.82 0.72 - 1.25 mg/dL 02/02/2024 11:18 AM CDT [facility] eGFR by CKD-EPI >90 >=90 mL/min/1.7 3 m2 02/02/2024 11:18 AM CDT [facility] Blood BLOOD SPECIMEN / Unknown Venipuncture / Unknown 02/02/2024 10:54 AM CDT 02/02/2024 11:02 AM CDT Travis Bhat CORPORATE FINANCIAL ANALYST-[facility] LAB - CHEMISTRY ORDERABLES Performing Organization Address [facility]/ZIP Co de Phone Number [facility] [address] [place] [address] * (ABNORMAL) GLUCOSE - POINT OF CARE (02/02/2024 4:25 AM CDT) Glucose WB/POC 196(H) 70 - 106 mg/dL 02/02/2024 4:30 AM CDT [facility] Specimen Type Cap Fingerstick 2023 4:30 AM CDT [facility] Blood BLOOD SPECIMEN / Unknown 02/02/2024 4:25 AM CDT 02/02/2024 4:30 AM CDT Yessenia Kerr MD LAB - POINT OF CARE ORDERABLES Performing Organization Address City/[facility]/ZIP Co de Phone Number [facility] [address] [place] [address] * (ABNORMAL) GLUCOSE - POINT OF CARE (02/01/2024 11:50 PM CDT) Glucose WB/POC 173(H) 70 - 106 mg/dL 02/02/2024 12:15 AM CDT [facility] Specimen Type Cap Fingerstick 2023 12:15 AM CDT [facility] Blood BLOOD SPECIMEN / Unknown 02/01/2024 11:50 PM CDT 02/02/2024 12:15 AM CDT Yessenia Kerr MD LAB - POINT OF CARE ORDERABLES Performing Organization Address City/[facility]/ZIP Co de Phone Number [facility] [id number] [place] [address] * (ABNORMAL) MAGNESIUM BLOOD (02/01/2024 10:20 PM CDT) Magnesium 1.5(L) 1.6 - 2.6 mg/dL 02/01/2024 10:46 PM CDT [facility] Blood BLOOD SPECIMEN / Unknown Venipuncture / Unknown 02/01/2024 10:20 PM CDT 02/01/2024 10:28 PM CDT Travis hBat APRN-HAND CLERICAL VERIFIER LAB - CHEMISTRY ORDERABLES Performing Organization Address [facility]/ZIP Co de Phone Number [facility] [address] [place] [address] * PHOSPHORUS BLOOD (02/01/2024 10:20 PM CDT) Phosphorus 4.3 2.3 - 4.7 mg/dL 02/01/2024 10:44 PM CDT [facility] Blood BLOOD SPECIMEN / Unknown Venipuncture / Unknown 02/01/2024 10:20 PM CDT 02/01/2024 10:28 PM CDT Travis Bhat APRN-HAND CLERICAL VERIFIER LAB - CHEMISTRY ORDERABLES [facility] [address] [place] [address] * (ABNORMAL) BASIC METABOLIC PANEL (CALCIUM TOTAL) (02/01/2024 10:20 PM CDT) Pathologist [facility] Glucose 166(H) 70 - 105 mg/dL 02/01/2024 10:46 PM CDT [facility] Sodium 138 136 - 145 mmol/L 02/01/2024 10:46 PM CDT [facility] Potassium 4.2 3.5 - 5.1 mmol/L 02/01/2024 10:46 PM CDT [facility] Chloride 102 98 - 107 mmol/L 02/01/2024 10:46 PM CDT [facility] CO2 25 22 - 29 mmol/L 02/01/2024 10:46 PM CDT [facility] Calcium 9.8 8.4 - 10.4 mg/dL 02/01/2024 10:46 PM CDT [facility] Anion Gap 11 6 - 16 mmol/L 02/01/2024 10:46 PM CDT [facility] BUN 20 7 - 26 mg/dL 02/01/2024 10:46 PM CDT [facility] Creatinine 0.80 0.72 - 1.25 mg/dL 02/01/2024 10:46 PM CDT [facility] eGFR by CKD-EPI >90 >=90 mL/min/1.7 3 m2 02/01/2024 10:46 PM CDT [facility] Blood BLOOD SPECIMEN / Unknown Venipuncture / Unknown 02/01/2024 10:20 PM CDT 02/01/2024 10:28 PM CDT Travis Bhat CORPORATE FINANCIAL ANALYST-HAND CLERICAL VERIFIER LAB - CHEMISTRY ORDERABLES Performing Organization Address [facility] de Phone Number [facility] [id number] [place] [address] [phone] * (ABNORMAL) GLUCOSE - POINT OF CARE (02/01/2024 5:37 PM CDT) Glucose WB/POC 177(H) 70 - 106 mg/dL 02/01/2024 5:41 PM CDT [facility] Specimen Type Cap Fingerstick 2023 5:41 PM CDT [facility] Blood BLOOD SPECIMEN / Unknown 02/01/2024 5:37 PM CDT 02/01/2024 5:41 PM CDT Yessenia Kerr MD LAB - POINT OF CARE ORDERABLES Performing Organization Address [facility] de Phone Number [facility] [address] [place] [phone] * (ABNORMAL) GLUCOSE - POINT OF CARE (02/01/2024 11:25 AM CDT) Glucose WB/POC 164(H) 70 - 106 mg/dL 02/01/2024 12:01 PM CDT [facility] Specimen Type Cap Fingerstick 2023 12:01 PM CDT [facility] Blood BLOOD SPECIMEN / Unknown 02/01/2024 11:25 AM CDT 02/01/2024 12:00 PM CDT Yessenia Kerr MD LAB - POINT OF CARE ORDERABLES Performing Organization Address [facility] Co de Phone Number [facility] [address] [place] [address] * MAGNESIUM BLOOD (02/01/2024 11:25 AM CDT) Magnesium 1.8 1.6 - 2.6 mg/dL 02/01/2024 11:56 AM CDT [facility] Blood BLOOD SPECIMEN / Unknown Venipuncture / Unknown 02/01/2024 11:25 AM CDT 02/01/2024 11:38 AM CDT Travis Teresa Bhat CORPORATE FINANCIAL ANALYST-HAND CLERICAL VERIFIER LAB - CHEMISTRY ORDERABLES Performing Organization Address [facility] Co de Phone Number [facility] [phone] [place] [phone] * PHOSPHORUS BLOOD (02/01/2024 11:25 AM CDT) Phosphorus 4.0 2.3 - 4.7 mg/dL 02/01/2024 11:55 AM CDT [facility] Blood BLOOD SPECIMEN / Unknown Venipuncture / Unknown 02/01/2024 11:25 AM CDT 02/01/2024 11:38 AM CDT Travis Teresa Home [employer]-HAND CLERICAL VERIFIER LAB - CHEMISTRY ORDERABLES Performing Organization Address [facility] de Phone Number [facility] [address] [place] [phone] * (ABNORMAL) BASIC METABOLIC PANEL (CALCIUM TOTAL) (02/01/2024 11:25 AM CDT) Glucose 191(H) 70 - 105 mg/dL 02/01/2024 11:56 AM CDT [facility] Sodium 137 136 - 145 mmol/L 02/01/2024 11:56 AM CDT [facility] Potassium 4.4 3.5 - 5.1 mmol/L 02/01/2024 11:56 AM CDT [facility] Chloride 100 98 - 107 mmol/L 02/01/2024 11:56 AM CDT [facility] CO2 25 22 - 29 mmol/L 02/01/2024 11:56 AM CDT [facility] Calcium 9.4 8.4 - 10.4 mg/dL 02/01/2024 11:56 AM CDT [facility] Anion Gap 12 6 - 16 mmol/L 02/01/2024 11:56 AM CDT [facility] BUN 21 7 - 26 mg/dL 02/01/2024 11:56 AM CDT [facility] Creatinine 0.89 0.72 - 1.25 mg/dL 02/01/2024 11:56 AM CDT [facility] eGFR by CKD-EPI >90 >=90 mL/min/1.7 3 m2 02/01/2024 11:56 AM CDT [facility] Blood BLOOD SPECIMEN / Unknown Venipuncture / Unknown 02/01/2024 11:25 AM CDT 02/01/2024 11:38 AM CDT Travis Bhat CORPORATE FINANCIAL ANALYST-HAND CLERICAL VERIFIER LAB - CHEMISTRY ORDERABLES Performing Organization Address [facility] Co de Phone Number [facility] [id number] [place] [phone] * (ABNORMAL) GLUCOSE - POINT OF CARE (02/01/2024 4:26 AM CDT) Pathologist [facility] Glucose WB/POC 209(H) 70 - 106 mg/dL 02/01/2024 4:31 AM CDT [facility] Specimen Type Cap Fingerstick 2023 4:31 AM CDT [facility] Blood BLOOD SPECIMEN / Unknown 02/01/2024 4:26 AM CDT 02/01/2024 4:31 AM CDT Yessenia Kerr MD LAB - POINT OF CARE ORDERABLES Performing Organization Address [facility] Co de Phone Number [facility] [address] [place], [place] [phone] * MAGNESIUM BLOOD (01/31/2024 10:57 PM CDT) Pathologist [facility] Magnesium 1.7 1.6 - 2.6 mg/dL 01/31/2024 11:23 PM CDT [facility] Blood BLOOD SPECIMEN / Unknown Venipuncture / Unknown 01/31/2024 10:57 PM CDT 01/31/2024 11:03 PM CDT Travis Bhat [employer]POR[employer]CIAL [employer]-HAND [employer]ERICAL [employer]IFIER LAB - CHEMISTRY ORDERABLES Performing Organization Address [facility] Co de Phone Number [facility] [address] [place] [address] * PHOSPHORUS BLOOD (01/31/2024 10:57 PM CDT) Phosphorus 4.2 2.3 - 4.7 mg/dL 01/31/2024 11:21 PM CDT [facility] Blood BLOOD SPECIMEN / Unknown Venipuncture / Unknown 01/31/2024 10:57 PM CDT 01/31/2024 11:03 PM CDT Travis Bhat CORPORATE FINANCIAL ANALYST-HAND CLERICAL VERIFIER LAB - CHEMISTRY ORDERABLES [facility] [address] [place] [address] * (ABNORMAL) BASIC METABOLIC PANEL (CALCIUM TOTAL) (01/31/2024 10:57 PM CDT) Pathologist [facility] Glucose 164(H) 70 - 105 mg/dL 01/31/2024 11:23 PM CDT [facility] Sodium 136 136 - 145 mmol/L 01/31/2024 11:23 PM CDT [facility] Potassium 4.1 3.5 - 5.1 mmol/L 01/31/2024 11:23 PM CDT [facility] Chloride 101 98 - 107 mmol/L 01/31/2024 11:23 PM CDT [facility] CO2 26 22 - 29 mmol/L 01/31/2024 11:23 PM CDT [facility] Calcium 9.4 8.4 - 10.4 mg/dL 01/31/2024 11:23 PM CDT [facility] Anion Gap 9 6 - 16 mmol/L 01/31/2024 11:23 PM CDT [facility] BUN 19 7 - 26 mg/dL 01/31/2024 11:23 PM CDT [facility] Creatinine 0.87 0.72 - 1.25 mg/dL 01/31/2024 11:23 PM CDT [facility] eGFR by CKD-EPI >90 >=90 mL/min/1.7 3 m2 01/31/2024 11:23 PM CDT [facility] Blood BLOOD SPECIMEN / Unknown Venipuncture / Unknown 01/31/2024 10:57 PM CDT 01/31/2024 11:03 PM CDT Travis Bhat CORPORATE FINANCIAL ANALYST-[employer] LAB - CHEMISTRY ORDERABLES Performing Organization Address [facility] Co de Phone Number [facility] [id number] [place] [address] [phone] * (ABNORMAL) GLUCOSE - POINT OF CARE (01/31/2024 8:43 PM CDT) Glucose WB/POC 154(H) 70 - 106 mg/dL 01/31/2024 8:47 PM CDT [facility] Specimen Type Cap Fingerstick 2023 8:47 PM CDT [facility] Blood BLOOD SPECIMEN / Unknown 01/31/2024 8:43 PM CDT 01/31/2024 8:47 PM CDT Yessenia Kerr MD LAB - POINT OF CARE ORDERABLES Performing Organization Address [facility] Co de Phone Number [facility] [address] [place] [phone] * (ABNORMAL) GLUCOSE - POINT OF CARE (01/31/2024 6:31 PM CDT) Glucose WB/POC 175(H) 70 - 106 mg/dL 01/31/2024 6:36 PM CDT [facility] Specimen Type Cap Fingerstick 2023 6:36 PM CDT [facility] Blood BLOOD SPECIMEN / Unknown 01/31/2024 6:31 PM CDT 01/31/2024 6:36 PM CDT Yessenia Kerr MD LAB - POINT OF CARE ORDERABLES Performing Organization Address City/[facility] Co de Phone Number [facility] [address] [place] [address] [phone] * (ABNORMAL) MAGNESIUM BLOOD (01/31/2024 1:19 PM CDT) Magnesium 1.3(L) 1.6 - 2.6 mg/dL 01/31/2024 1:56 PM CDT [facility] Blood BLOOD SPECIMEN / Unknown Venipuncture / Unknown 01/31/2024 1:19 PM CDT 01/31/2024 1:32 PM CDT Travis Bhat [facility] - CHEMISTRY ORDERABLES Performing Organization Address [facility] Co de Phone Number [facility] [address] [place] [address] [phone] * PHOSPHORUS BLOOD (01/31/2024 1:19 PM CDT) Phosphorus 3.8 2.3 - 4.7 mg/dL 01/31/2024 1:56 PM CDT [facility] Blood BLOOD SPECIMEN / Unknown Venipuncture / Unknown 01/31/2024 1:19 PM CDT 01/31/2024 1:32 PM CDT Travis Bhat [facility]ATE [facility]CIAL [facility] - CHEMISTRY ORDERABLES Performing Organization Address [facility] de Phone Number [facility] [address] [place] [address] [phone] * (ABNORMAL) GLUCOSE - POINT OF CARE (01/31/2024 1:07 PM CDT) Glucose WB/POC 136(H) 70 - 106 mg/dL 01/31/2024 3:39 PM CDT [facility] Specimen Type Cap Fingerstick 2023 3:39 PM CDT [facility] Blood BLOOD SPECIMEN / Unknown 01/31/2024 1:07 PM CDT 01/31/2024 3:39 PM CDT Yessenia Kerr MD LAB - POINT OF CARE ORDERABLES Performing Organization Address [facility] Co de Phone Number [facility] [address] [place] [address] [phone] * (ABNORMAL) BASIC METABOLIC PANEL (CALCIUM TOTAL) (01/31/2024 11:16 AM CDT) Glucose 119(H) 70 - 105 mg/dL 01/31/2024 11:39 AM CDT [facility] Sodium 137 136 - 145 mmol/L 01/31/2024 11:39 AM CDT [facility] Potassium 4.4 3.5 - 5.1 mmol/L 01/31/2024 11:39 AM CDT [facility] Chloride 101 98 - 107 mmol/L 01/31/2024 11:39 AM CDT [facility] CO2 23 22 - 29 mmol/L 01/31/2024 11:39 AM CDT [facility] Calcium 9.6 8.4 - 10.4 mg/dL 01/31/2024 11:39 AM CDT [facility] Anion Gap 13 6 - 16 mmol/L 01/31/2024 11:39 AM CDT [facility] BUN 17 7 - 26 mg/dL 01/31/2024 11:39 AM CDT [facility] Creatinine 0.80 0.72 - 1.25 mg/dL 01/31/2024 11:39 AM CDT [facility] eGFR by CKD-EPI >90 >=90 mL/min/1.7 3 m2 01/31/2024 11:39 AM CDT [facility] Blood BLOOD SPECIMEN / Unknown Venipuncture / Unknown 01/31/2024 11:16 AM CDT 01/31/2024 11:22 AM CDT Travis Bhat CORPORATE FINANCIAL ANALYST-[facility] LAB - CHEMISTRY ORDERABLES Performing Organization Address [facility] Co de Phone Number [facility] [address] [place] [phone] * (ABNORMAL) MAGNESIUM BLOOD (01/31/2024 11:16 AM CDT) Magnesium 1.4(L) 1.6 - 2.6 mg/dL 01/31/2024 11:39 AM CDT [facility] Blood BLOOD SPECIMEN / Unknown Venipuncture / Unknown 01/31/2024 11:16 AM CDT 01/31/2024 11:22 AM CDT Travis Bhat CORPORATE FINANCIAL ANALYST-[facility] LAB - CHEMISTRY ORDERABLES Performing Organization Address City/[facility] Co de Phone Number [facility] [id number] [place] [phone] * (ABNORMAL) GLUCOSE - POINT OF CARE (01/31/2024 5:46 AM CDT) Glucose WB/POC 122(H) 70 - 106 mg/dL 01/31/2024 3:39 PM CDT [facility] Specimen Type Cap Fingerstick 2023 3:39 PM CDT [facility] Blood BLOOD SPECIMEN / Unknown 01/31/2024 5:46 AM CDT 01/31/2024 3:39 PM CDT Yessenia Kerr MD LAB - POINT OF CARE ORDERABLES [facility] [id number] [place] [phone] * (ABNORMAL) GLUCOSE - POINT OF CARE (01/31/2024 12:18 AM CDT) Glucose WB/POC 115(H) 70 - 106 mg/dL 01/31/2024 12:22 AM CDT [facility] Specimen Type Cap Fingerstick 2023 12:22 AM CDT [facility] Blood BLOOD SPECIMEN / Unknown 01/31/2024 12:18 AM CDT 01/31/2024 12:22 AM CDT Yessenia Kerr MD LAB - POINT OF CARE ORDERABLES [facility] [id number] [place] [address] [phone] * (ABNORMAL) GLUCOSE - POINT OF CARE (01/30/2024 4:09 PM CDT) Glucose WB/POC 135(H) 70 - 106 mg/dL 01/30/2024 4:55 PM CDT [facility] Specimen Type Cap Fingerstick 2023 4:55 PM CDT [facility] Blood BLOOD SPECIMEN / Unknown 01/30/2024 4:09 PM CDT 01/30/2024 4:55 PM CDT Yessenia Kerr MD LAB - POINT OF CARE ORDERABLES Performing Organization Address [facility] Co de Phone Number [facility] [address] [place] [phone] * (ABNORMAL) GLUCOSE - POINT OF CARE (01/30/2024 12:59 PM CDT) Glucose WB/POC 140(H) 70 - 106 mg/dL 01/30/2024 4:55 PM CDT [facility] Specimen Type Cap Fingerstick 2023 4:55 PM CDT [facility] Blood BLOOD SPECIMEN / Unknown 01/30/2024 12:59 PM CDT 01/30/2024 4:55 PM CDT Yessenia Kerr MD LAB - POINT OF CARE ORDERABLES Performing Organization Address [facility] de Phone Number [facility] [address] [place] [phone] * (ABNORMAL) GLUCOSE - POINT OF CARE (01/30/2024 8:24 AM CDT) Glucose WB/POC 132(H) 70 - 106 mg/dL 01/30/2024 8:28 AM CDT [facility] Specimen Type Cap Fingerstick 2023 8:28 AM CDT [facility] Blood BLOOD SPECIMEN / Unknown 01/30/2024 8:24 AM CDT 01/30/2024 8:28 AM CDT Yessenia Kerr MD LAB - POINT OF CARE ORDERABLES Performing Organization Address [facility] Co de Phone Number [facility] [address] [place] [phone] * EGD WITH PEG PLACEMENT (01/30/2024 6:35 [...] Procedure Code(s): ? --- Professional --- ? 33336, Esophagogastrodu odenoscopy, flexible, transoral; with directed ? placement of percutaneous gastrostomy tube ? --- Technical --- ? 22345, Esophagogastrodu odenoscopy, flexible, transoral; with directed ? placement of percutaneous gastrostomy tube Diagnosis Code(s): ? --- Professional --- ? Z43.1, Encounter for attention to gastrostomy ? R63.39, Other feeding difficulties ? --- Technical --- ? Z43.1, Encounter for attention to gastrostomy ? R63.39, Other feeding difficulties CPT copyright 2020 [employer]. All rights reserved. The codes documented in this report are preliminary and upon medical insurance coder review may be revised to meet current compliance requirements. Dr. Jeff Ruffin MD Jeff Ruffin MD 01/30/2024 3:19:32 PM This report has been signed electronically. Number of Addenda: 0 Note Initiated On: 01/30/2024 6:35 AM [facility] 01/30/2024 6:35 AM CDT Jeff Ruffin MD GI PROCEDURE ORDERAB LES Performing Organization Address City/State/[facility] Co de Phone Number [facility] [place] [address] * (ABNORMAL) GLUCOSE - POINT OF CARE (01/30/2024 6:26 AM CDT) Glucose WB/POC 152(H) 70 - 106 mg/dL 01/30/2024 6:31 AM CDT [facility] Specimen Type Cap Fingerstick 2023 6:31 AM CDT [facility] Blood BLOOD SPECIMEN / Unknown 01/30/2024 6:26 AM CDT 01/30/2024 6:31 AM CDT Yessenia Kerr MD LAB - POINT OF CARE ORDERABLES Performing Organization Address City/[facility] de Phone Number [facility] [address] [place] [address] [phone] * PHOSPHORUS BLOOD (01/30/2024 4:29 AM CDT) [facility] Phosphorus 3.7 2.3 - 4.7 mg/dL 01/30/2024 5:06 AM CDT [facility] Blood BLOOD SPECIMEN / Unknown Venipuncture / Unknown 01/30/2024 4:29 AM CDT 01/30/2024 4:37 AM CDT Andrea Zamorano MD LAB - CHEMISTRY ORDAnirudh RAZO Performing Organization Address [facility] de Phone Number [facility] [address] [place] [phone] * (ABNORMAL) MAGNESIUM BLOOD (01/30/2024 4:29 AM CDT) [facility] Magnesium 1.5(L) 1.6 - 2.6 mg/dL 01/30/2024 5:06 AM CDT [facility] Blood BLOOD SPECIMEN / Unknown Venipuncture / Unknown 01/30/2024 4:29 AM CDT 01/30/2024 4:37 AM CDT Andrea Zamorano MD LAB - CHEMISTRY ORDAnirudh RAZO Performing Organization Address [facility] de Phone Number [facility] [address] [place] [address] [phone] * (ABNORMAL) CBC W AUTO DIFFERENTIAL (01/30/2024 4:29 AM CDT) [facility] WBC 10.0 4.0 - 10.7 x10E9/L 01/30/2024 4:48 AM CDT [facility] RBC Count 4.27(L) 4.30 - 5.80 x10E12/L 01/30/2024 4:48 AM CDT [facility] Hemoglobin 12.4(L) 13.3 - 17.5 g/dL 01/30/2024 4:48 AM CDT [facility] Hematocrit 38.7 38.7 - 51.1 % 01/30/2024 4:48 AM CDT [facility] MCV 90.6 80.0 - 98.0 fL 01/30/2024 4:48 AM CDT [facility] MCH 29.0 26.7 - 33.6 pg 01/30/2024 4:48 AM CDT [facility] MCHC 32.0 31.7 - 36.3 g/dL 01/30/2024 4:48 AM CDT [facility] RDW-CV 13.9 11.3 - 14.8 % 01/30/2024 4:48 AM CDT [facility] Platelet Count 289 150 - 420 x10E9/L 01/30/2024 4:48 AM CDT [facility] MPV 9.3 7.8 - 11.4 fL 01/30/2024 4:48 AM CDT [facility] Neutrophil % 62.7 41.0 - 74.0 % 01/30/2024 4:48 AM CDT [facility] Lymphocyte % 21.6 17.0 - 47.0 % 01/30/2024 4:48 AM CDT [facility] Monocyte % 12.4(H) 3.0 - 11.0 % 01/30/2024 4:48 AM CDT [facility] Eosinophil % 1.7 0.0 - 7.0 % 01/30/2024 4:48 AM CDT [facility] Basophil % 0.3 0.0 - 1.6 % 01/30/2024 4:48 AM CDT [facility] Immature Granulocytes % 1.3(H) 0.0 - 1.0 % 01/30/2024 4:48 AM CDT [facility] Neutrophil Absolute 6.24 1.60 - 7.50 x10E9/L 01/30/2024 4:48 AM CDT [facility] Lymphocyte Absolute 2.15 1.00 - 4.40 x10E9/L 01/30/2024 4:48 AM CDT [facility] Monocyte Absolute 1.24(H) 0.15 - 1.00 x10E9/L 01/30/2024 4:48 AM CDT [facility] Eosinophil Absolute 0.17 0.00 - 0.60 x10E9/L 01/30/2024 4:48 AM CDT [facility] Basophil Absolute 0.03 0.00 - 0.13 x10E9/L 01/30/2024 4:48 AM CDT [facility] Blood BLOOD SPECIMEN / Unknown Venipuncture / Unknown 01/30/2024 4:29 AM CDT 01/30/2024 4:37 AM CDT Andrea Zamorano MD LAB - HEMATOLOGY ORD ERABLES [facility] [address] [place] [address] * (ABNORMAL) COMPREHENSIVE METABOLIC PANEL (01/30/2024 4:29 AM CDT) Glucose 146(H) 70 - 105 mg/dL 01/30/2024 5:06 AM CDT [facility] Sodium 139 136 - 145 mmol/L 01/30/2024 5:06 AM CDT [facility] Potassium 4.1 3.5 - 5.1 mmol/L 01/30/2024 5:06 AM CDT [facility] Chloride 101 98 - 107 mmol/L 01/30/2024 5:06 AM CDT [facility] CO2 26 22 - 29 mmol/L 01/30/2024 5:06 AM CDT [facility] Calcium 9.6 8.4 - 10.4 mg/dL 01/30/2024 5:06 AM T [facility] Anion Gap 12 6 - 16 mmol/L 01/30/2024 5:06 AM CDT [facility] BUN 17 7 - 26 mg/dL 01/30/2024 5:06 AM CDT [facility] Creatinine 0.80 0.72 - 1.25 mg/dL 01/30/2024 5:06 AM CDT [facility] Alkaline Phosphatase 81 40 - 150 U/L 01/30/2024 5:06 AM CDT [facility] ALT 9 0 - 55 U/L 01/30/2024 5:06 AM CDT [facility] AST 14 5 - 34 U/L 01/30/2024 5:06 AM T [facility] Protein Total 7.8 6.4 - 8.3 gm/dL 01/30/2024 5:06 AM T [facility] Albumin 2.7(L) 3.4 - 5.0 gm/dL 01/30/2024 5:06 AM CDT [facility] Bilirubin Total 0.2 0.2 - 1.2 mg/dL 01/30/2024 5:06 AM CDT [facility] eGFR by CKD-EPI >90 >=90 mL/min/1.7 3 m2 01/30/2024 5:06 AM CDT [facility] Blood BLOOD SPECIMEN / Unknown Venipuncture / Unknown 01/30/2024 4:29 AM CDT 01/30/2024 4:37 AM CDT Andrea Zamorano MD LAB - CHEMISTRY ORDE DUNG Performing Organization Address City/[facility] Co de Phone Number [facility] [address] [place] [address] [phone] * (ABNORMAL) GLUCOSE - POINT OF CARE (01/30/2024 12:24 AM CDT) Glucose WB/POC 152(H) 70 - 106 mg/dL 01/30/2024 12:28 AM CDT [facility] Specimen Type Cap Fingerstick 2023 12:28 AM CDT [facility] Blood BLOOD SPECIMEN / Unknown 01/30/2024 12:24 AM CDT 01/30/2024 12:28 AM CDT Yessenia Kerr MD LAB - POINT OF CARE ORDERABLES Performing Organization Address City/[facility] Co de Phone Number [facility] [address] [place] [address] * (ABNORMAL) GLUCOSE - POINT OF CARE (01/29/2024 6:38 PM CDT) Glucose WB/POC 181(H) 70 - 106 mg/dL 01/29/2024 6:43 PM CDT [facility] Specimen Type Cap Fingerstick 2023 6:43 PM CDT [facility] Blood BLOOD SPECIMEN / Unknown 01/29/2024 6:38 PM CDT 01/29/2024 6:43 PM CDT Yessenia Kerr MD LAB - POINT OF CARE ORDERABLES Performing Organization Address [facility]/ZIP Co de Phone Number [facility] [address] [place] [address] [phone] * (ABNORMAL) GLUCOSE - POINT OF CARE (01/29/2024 12:32 PM CDT) Glucose WB/POC 160(H) 70 - 106 mg/dL 01/29/2024 12:37 PM CDT [facility] Specimen Type Cap Fingerstick 2023 12:37 PM CDT [facility] Blood BLOOD SPECIMEN / Unknown 01/29/2024 12:32 PM CDT 01/29/2024 12:37 PM CDT Yessenia Kerr MD LAB - POINT OF CARE ORDERABLES Performing Organization Address [facility] Co de Phone Number [facility] [address] [place] [phone] * (ABNORMAL) GLUCOSE - POINT OF CARE (01/29/2024 7:59 AM CDT) Glucose WB/POC 146(H) 70 - 106 mg/dL 01/29/2024 8:04 AM CDT [facility] Specimen Type Cap Fingerstick 2023 8:04 AM CDT [facility] Blood BLOOD SPECIMEN / Unknown 01/29/2024 7:59 AM CDT 01/29/2024 8:04 AM CDT Yessenia Kerr MD LAB - POINT OF CARE ORDERABLES Performing Organization Address [facility] Co de Phone Number [facility] [address] [place] [phone] * (ABNORMAL) GLUCOSE - POINT OF CARE (01/29/2024 6:56 AM CDT) Glucose WB/POC 124(H) 70 - 106 mg/dL 01/29/2024 6:57 AM CDT [facility] Specimen Type Cap Fingerstick 2023 6:57 AM CDT [facility] Blood BLOOD SPECIMEN / Unknown 01/29/2024 6:56 AM CDT 01/29/2024 6:57 AM CDT Yessenia Kerr MD LAB - POINT OF CARE ORDERABLES Performing Organization Address [facility] de Phone Number [facility] [id number] [place] [phone] * PHOSPHORUS BLOOD (01/29/2024 2:59 AM CDT) Phosphorus 4.1 2.3 - 4.7 mg/dL 01/29/2024 3:29 AM CDT [facility] Blood BLOOD SPECIMEN / Unknown Venipuncture / Unknown 01/29/2024 2:59 AM CDT 01/29/2024 3:02 AM CDT Andrea Zamorano MD LAB - CHEMISTRY ORDAnirudh RAZO Performing Organization Address [facility] de Phone Number [facility] [address] [place] [phone] * MAGNESIUM BLOOD (01/29/2024 2:59 AM CDT) Magnesium 1.6 1.6 - 2.6 mg/dL 01/29/2024 3:29 AM CDT [facility] Blood BLOOD SPECIMEN / Unknown Venipuncture / Unknown 01/29/2024 2:59 AM CDT 01/29/2024 3:02 AM CDT Andrea Zamorano MD LAB - CHEMISTRY ORDAnirudh RAZO Performing Organization Address [facility] de Phone Number [facility] [id number] [place] [phone] * (ABNORMAL) CBC W AUTO DIFFERENTIAL (01/29/2024 2:59 AM CDT) WBC 10.5 4.0 - 10.7 x10E9/L 01/29/2024 3:10 AM CDT [facility] RBC Count 4.40 4.30 - 5.80 x10E12/L 01/29/2024 3:10 AM CDT [facility] Hemoglobin 12.6(L) 13.3 - 17.5 g/dL 01/29/2024 3:10 AM CDT [facility] Hematocrit 40.0 38.7 - 51.1 % 01/29/2024 3:10 AM CDT [facility] MCV 90.9 80.0 - 98.0 fL 01/29/2024 3:10 AM CDT [facility] MCH 28.6 26.7 - 33.6 pg 01/29/2024 3:10 AM CDT [facility] MCHC 31.5(L) 31.7 - 36.3 g/dL 01/29/2024 3:10 AM CDT [facility] RDW-CV 13.3 11.3 - 14.8 % 01/29/2024 3:10 AM CDT [facility] Platelet Count 319 150 - 420 x10E9/L 01/29/2024 3:10 AM CDT [facility] MPV 9.2 7.8 - 11.4 fL 01/29/2024 3:10 AM CDT [facility] Neutrophil % 61.5 41.0 - 74.0 % 01/29/2024 3:10 AM CDT [facility] Lymphocyte % 23.6 17.0 - 47.0 % 01/29/2024 3:10 AM CDT [facility] Monocyte % 11.5(H) 3.0 - 11.0 % 01/29/2024 3:10 AM CDT [facility] Eosinophil % 2.0 0.0 - 7.0 % 01/29/2024 3:10 AM CDT [facility] Basophil % 0.4 0.0 - 1.6 % 01/29/2024 3:10 AM CDT [facility] Immature Granulocytes % 1.0 0.0 - 1.0 % 01/29/2024 3:10 AM CDT [facility] Neutrophil Absolute 6.46 1.60 - 7.50 x10E9/L 01/29/2024 3:10 AM CDT [facility] Lymphocyte Absolute 2.48 1.00 - 4.40 x10E9/L 01/29/2024 3:10 AM CDT [facility] Monocyte Absolute 1.21(H) 0.15 - 1.00 x10E9/L 01/29/2024 3:10 AM CDT [facility] Eosinophil Absolute 0.21 0.00 - 0.60 x10E9/L 01/29/2024 3:10 AM CDT [facility] Basophil Absolute 0.04 0.00 - 0.13 x10E9/L 01/29/2024 3:10 AM CDT [facility] Blood BLOOD SPECIMEN / Unknown Venipuncture / Unknown 01/29/2024 2:59 AM CDT 01/29/2024 3:02 AM CDT Andrea Zamorano MD LAB - HEMATOLOGY ORD ERABLES [facility] [address] [place] [address] * (ABNORMAL) COMPREHENSIVE METABOLIC PANEL (01/29/2024 2:59 AM CDT) Glucose 135(H) 70 - 105 mg/dL 01/29/2024 3:29 AM CDT [facility] Sodium 140 136 - 145 mmol/L 01/29/2024 3:29 AM CDT [facility] Potassium 4.1 3.5 - 5.1 mmol/L 01/29/2024 3:29 AM CDT [facility] Chloride 100 98 - 107 mmol/L 01/29/2024 3:29 AM CDT [facility] CO2 27 22 - 29 mmol/L 01/29/2024 3:29 AM CDT [facility] Calcium 9.3 8.4 - 10.4 mg/dL 01/29/2024 3:29 AM CDT [facility] Anion Gap 13 6 - 16 mmol/L 01/29/2024 3:29 AM CDT [facility] BUN 15 7 - 26 mg/dL 01/29/2024 3:29 AM CDT [facility] Creatinine 0.74 0.72 - 1.25 mg/dL 01/29/2024 3:29 AM CDT [facility] Alkaline Phosphatase 90 40 - 150 U/L 01/29/2024 3:29 AM CDT [facility] ALT 10 0 - 55 U/L 01/29/2024 3:29 AM CDT [facility] AST 14 5 - 34 U/L 01/29/2024 3:29 AM CDT [facility] Protein Total 8.2 6.4 - 8.3 gm/dL 01/29/2024 3:29 AM CDT [facility] Albumin 2.7(L) 3.4 - 5.0 gm/dL 01/29/2024 3:29 AM CDT [facility] Bilirubin Total 0.2 0.2 - 1.2 mg/dL 01/29/2024 3:29 AM CDT [facility] eGFR by CKD-EPI >90 >=90 mL/min/1.7 3 m2 01/29/2024 3:29 AM CDT [facility] Blood BLOOD SPECIMEN / Unknown Venipuncture / Unknown 01/29/2024 2:59 AM CDT 01/29/2024 3:02 AM CDT Andrea Zamorano MD LAB - CHEMISTRY [facility]RI[facility] RAZO Performing Organization Address City/[facility] Co de Phone Number [facility] [phone] [place] [phone] * (ABNORMAL) GLUCOSE - POINT OF CARE (01/29/2024 12:09 AM CDT) Glucose WB/POC 128(H) 70 - 106 mg/dL 01/29/2024 4:35 PM CDT [facility] Specimen Type Cap Fingerstick 2023 4:35 PM CDT [facility] Blood BLOOD SPECIMEN / Unknown 01/29/2024 12:09 AM CDT 01/29/2024 4:35 PM CDT Yessenia Kerr MD LAB - POINT OF CARE ORDERABLES Performing Organization Address [facility] Co de Phone Number [facility] [phone] [place] [phone] * (ABNORMAL) GLUCOSE - POINT OF CARE (01/28/2024 8:16 PM CDT) Glucose WB/POC 136(H) 70 - 106 mg/dL 01/28/2024 8:18 PM CDT [facility] Specimen Type Cap Fingerstick 2023 8:18 PM CDT [facility] Blood BLOOD SPECIMEN / Unknown 01/28/2024 8:16 PM CDT 01/28/2024 8:18 PM CDT Yessenia Kerr MD LAB - POINT OF CARE ORDERABLES Performing Organization Address [facility]/ZIP Co de Phone Number [facility] [phone] [place] [phone] * (ABNORMAL) GLUCOSE - POINT OF CARE (01/28/2024 6:58 PM CDT) Glucose WB/POC 128(H) 70 - 106 mg/dL 01/28/2024 6:59 PM CDT [facility] Specimen Type Cap Fingerstick 2023 6:59 PM CDT [facility] Blood BLOOD SPECIMEN / Unknown 01/28/2024 6:58 PM CDT 01/28/2024 6:59 PM CDT Yessenia Kerr MD LAB - POINT OF CARE ORDERABLES Performing Organization Address [facility] de Phone Number [facility] [address] [place] [phone] * (ABNORMAL) GLUCOSE - POINT OF CARE (01/28/2024 12:09 PM CDT) Glucose WB/POC 133(H) 70 - 106 mg/dL 01/28/2024 12:12 PM CDT [facility] Specimen Type Cap Fingerstick 2023 12:12 PM CDT [facility] Blood BLOOD SPECIMEN / Unknown 01/28/2024 12:09 PM CDT 01/28/2024 12:12 PM CDT Yessenia Kerr MD LAB - POINT OF CARE ORDERABLES Performing Organization Address [facility] Co de Phone Number [facility] [id number] [place] [phone] * (ABNORMAL) GLUCOSE - POINT OF CARE (01/28/2024 8:28 AM CDT) Glucose WB/POC 150(H) 70 - 106 mg/dL 01/28/2024 8:33 AM CDT [facility] Specimen Type Cap Fingerstick 2023 8:33 AM CDT [facility] Blood BLOOD SPECIMEN / Unknown 01/28/2024 8:28 AM CDT 01/28/2024 8:33 AM CDT Yessenia Kerr MD LAB - POINT OF CARE ORDERABLES Performing Organization Address City/[facility]/ZIP Co de Phone Number [facility] [address] [place] [address] * PHOSPHORUS BLOOD (01/28/2024 3:41 AM CDT) Phosphorus 4.4 2.3 - 4.7 mg/dL 01/28/2024 5:06 AM CDT [facility] Blood BLOOD SPECIMEN / Unknown Venipuncture / Unknown 01/28/2024 3:41 AM CDT 01/28/2024 4:28 AM CDT Andrea Zamorano MD LAB - CHEMISTRY CHRISTIAN RAZO Performing Organization Address [facility] Co de Phone Number [facility] [address] [place] [address] * MAGNESIUM BLOOD (01/28/2024 3:41 AM CDT) Magnesium 1.7 1.6 - 2.6 mg/dL 01/28/2024 5:06 AM CDT [facility] Blood BLOOD SPECIMEN / Unknown Venipuncture / Unknown 01/28/2024 3:41 AM CDT 01/28/2024 4:28 AM CDT Andrea Zamorano MD LAB - CHEMISTRY CHRISTIAN RAZO Performing Organization Address [facility]/ZIP Co de Phone Number [facility] [address] [place] [address] * (ABNORMAL) CBC W AUTO DIFFERENTIAL (01/28/2024 3:41 AM CDT) WBC 8.5 4.0 - 10.7 x10E9/L 01/28/2024 4:47 AM CDT [facility] RBC Count 4.06(L) 4.30 - 5.80 x10E12/L 01/28/2024 4:47 AM CDT [facility] Hemoglobin 11.8(L) 13.3 - 17.5 g/dL 01/28/2024 4:47 AM CDT [facility] Hematocrit 37.2(L) 38.7 - 51.1 % 01/28/2024 4:47 AM CDT [facility] MCV 91.6 80.0 - 98.0 fL 01/28/2024 4:47 AM CDT [facility] MCH 29.1 26.7 - 33.6 pg 01/28/2024 4:47 AM CDT [facility] MCHC 31.7 31.7 - 36.3 g/dL 01/28/2024 4:47 AM CDT [facility] RDW-CV 13.3 11.3 - 14.8 % 01/28/2024 4:47 AM CDT [facility] Platelet Count 293 150 - 420 x10E9/L 01/28/2024 4:47 AM CDT [facility] MPV 9.8 7.8 - 11.4 fL 01/28/2024 4:47 AM CDT [facility] Neutrophil % 59.7 41.0 - 74.0 % 01/28/2024 4:47 AM CDT [facility] Lymphocyte % 25.8 17.0 - 47.0 % 01/28/2024 4:47 AM CDT [facility] Monocyte % 9.9 3.0 - 11.0 % 01/28/2024 4:47 AM CDT [facility] Eosinophil % 3.2 0.0 - 7.0 % 01/28/2024 4:47 AM CDT [facility] Basophil % 0.5 0.0 - 1.6 % 01/28/2024 4:47 AM CDT [facility] Immature Granulocytes % 0.9 0.0 - 1.0 % 01/28/2024 4:47 AM CDT [facility] Neutrophil Absolute 5.06 1.60 - 7.50 x10E9/L 01/28/2024 4:47 AM CDT [facility] Lymphocyte Absolute 2.19 1.00 - 4.40 x10E9/L 01/28/2024 4:47 AM CDT [facility] Monocyte Absolute 0.84 0.15 - 1.00 x10E9/L 01/28/2024 4:47 AM CDT [facility] Eosinophil Absolute 0.27 0.00 - 0.60 x10E9/L 01/28/2024 4:47 AM CDT [facility] Basophil Absolute 0.04 0.00 - 0.13 x10E9/L 01/28/2024 4:47 AM CDT [facility] Blood BLOOD SPECIMEN / Unknown Venipuncture / Unknown 01/28/2024 3:41 AM CDT 01/28/2024 4:28 AM CDT Andrea Zamorano MD LAB - HEMATOLOGY ORD ERABLES [facility] [address] [place] [address] * (ABNORMAL) COMPREHENSIVE METABOLIC PANEL (01/28/2024 3:41 AM CDT) [facility] Glucose 126(H) 70 - 105 mg/dL 01/28/2024 5:06 AM CDT [facility] Sodium 139 136 - 145 mmol/L 01/28/2024 5:06 AM CDT [facility] Potassium 4.0 3.5 - 5.1 mmol/L 01/28/2024 5:06 AM CDT [facility] Chloride 102 98 - 107 mmol/L 01/28/2024 5:06 AM CDT [facility] CO2 26 22 - 29 mmol/L 01/28/2024 5:06 AM CDT [facility] Calcium 9.3 8.4 - 10.4 mg/dL 01/28/2024 5:06 AM CDT [facility] Anion Gap 11 6 - 16 mmol/L 01/28/2024 5:06 AM CDT [facility] BUN 15 7 - 26 mg/dL 01/28/2024 5:06 AM CDT [facility] Creatinine 0.75 0.72 - 1.25 mg/dL 01/28/2024 5:06 AM CDT [facility] Alkaline Phosphatase 90 40 - 150 U/L 01/28/2024 5:06 AM CDT [facility] ALT 12 0 - 55 U/L 01/28/2024 5:06 AM CDT [facility] AST 17 5 - 34 U/L 01/28/2024 5:06 AM CDT [facility] Protein Total 7.8 6.4 - 8.3 gm/dL 01/28/2024 5:06 AM CDT [facility] Albumin 2.6(L) 3.4 - 5.0 gm/dL 01/28/2024 5:06 AM CDT [facility] Bilirubin Total 0.3 0.2 - 1.2 mg/dL 01/28/2024 5:06 AM T [facility] eGFR by CKD-EPI >90 >=90 mL/min/1.7 3 m2 01/28/2024 5:06 AM CDT [facility] Blood BLOOD SPECIMEN / Unknown Venipuncture / Unknown 01/28/2024 3:41 AM CDT 01/28/2024 4:28 AM CDT Andrea Zamorano MD LAB - CHEMISTRY CHRISTIAN RAZO Performing Organization Address City/[facility]/ZIP Co de Phone Number [facility] [address] [place] [address] * (ABNORMAL) GLUCOSE - POINT OF CARE (01/28/2024 3:40 AM CDT) [facility] Glucose WB/POC 127(H) 70 - 106 mg/dL 01/28/2024 4:47 AM CDT [facility] Specimen Type Venous 01/28/2024 4:47 AM CDT [facility] Blood BLOOD SPECIMEN / Unknown 01/28/2024 3:40 AM CDT 01/28/2024 4:47 AM CDT Sherie Beltre MD LAB - POINT OF CARE ORDERABLES Performing Organization Address City/[facility]/ZIP Co de Phone Number [facility] [address] [place] [address] * (ABNORMAL) GLUCOSE - POINT OF CARE (01/28/2024 12:58 AM CDT) Glucose WB/POC 119(H) 70 - 106 mg/dL 01/28/2024 12:59 AM CDT [facility] Specimen Type Cap Fingerstick 2023 12:59 AM CDT [facility] Blood BLOOD SPECIMEN / Unknown 01/28/2024 12:58 AM CDT 01/28/2024 12:59 AM CDT Sherie Beltre MD LAB - POINT OF CARE ORDERABLES Performing Organization Address City/[facility]/ZIP Co de Phone Number [facility] [address] [place] [address] * GLUCOSE - POINT OF CARE (01/27/2024 8:14 PM CDT) Glucose WB/POC 92 70 - 106 mg/dL 01/27/2024 8:18 PM CDT [facility] Specimen Type Cap Fingerstick 2023 8:18 PM CDT [facility] Blood BLOOD SPECIMEN / Unknown 01/27/2024 8:14 PM CDT 01/27/2024 8:18 PM CDT Sherie Beltre MD LAB - POINT OF CARE ORDERABLES Performing Organization Address City/[facility]/ZIP Co de Phone Number [facility] [id number] [place] [address] * GLUCOSE - POINT OF CARE (01/27/2024 4:20 PM CDT) Glucose WB/POC 96 70 - 106 mg/dL 01/27/2024 4:25 PM CDT [facility] Specimen Type Cap Fingerstick 2023 4:25 PM CDT [facility] Blood BLOOD SPECIMEN / Unknown 01/27/2024 4:20 PM CDT 01/27/2024 4:25 PM CDT Sherie Beltre MD LAB - POINT OF CARE ORDERABLES [facility] [address] [place] [address] * (ABNORMAL) BLOOD GASES+LYTES ARTERIAL (01/27/2024 12:33 [...] - 18 mmol/L 01/27/2024 12:36 PM CDT [facility] Blood, arterial ARTERIAL BLOOD SPECIMEN / Unknown 01/27/2024 12:33 PM CDT 01/27/2024 12:33 PM CDT Kel Jacome MD LAB - BLOOD GASES OR DERABLES Performing Organization Address [facility] Co de Phone Number [facility] [address] [phone] * GLUCOSE - POINT OF CARE (01/27/2024 12:31 PM CDT) [facility] Glucose WB/POC 95 70 - 106 mg/dL 01/27/2024 12:36 PM CDT [facility] Specimen Type Arterial 01/27/2024 12:36 PM CDT [facility] Blood BLOOD SPECIMEN / Unknown 01/27/2024 12:31 PM CDT 01/27/2024 12:36 PM CDT Sherie Beltre MD LAB - POINT OF CARE ORDERABLES Performing Organization Address [facility] Co de Phone Number [facility] [address] [place] [address] * CT HEAD NON CONTRAST (01/27/2024 12:23 PM CDT) Anatomical Region Laterality Modality Head Computed Tomogra phy 01/27/2024 12:2 4 PM CDT Impressions 01/27/2024 12:26 PM CDT IMPRESSION: 1.No acute intracranial abnormalities. 2.Revisualization of an area of subacute infarct at the left thalamus and gabriela. This is better visualized on prior MRI of the brain. 3.Chronic bilateral basal ganglial lacunar infarcts. MRI may provide more detailed evaluation. 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 MRI the brain dated 01/23/2024. TECHNIQUE: CT of the head was performed from the skull base to the vertex without contrast administration. Multiplanar reconstructions were reviewed. One or more of the following CT dose reduction techniques were utilized: - Automated Exposure Control (AEC) - Adjustment of mA and/or kV according to patient size - Iterative Reconstruction - ALARA or ALARA/IMAGE GENTLY FINDINGS: There is no visible soft tissue trauma or skull fracture. There is no acute intracranial hemorrhage, midline shift, mass effect, or intra-axial or extra-axial fluid collection. Wood-white matter differentiation is preserved. There is no evidence of acute cortical infarct. There is revisualization of an area of subacute infarct at the left thalamus and gabriela. This is better visualized on prior MRI of the brain. There are chronic bilateral basal ganglial lacunar infarcts. The ventricles and sulci are unremarkable. ??The basal cisterns are patent. The orbital contents are unremarkable bilaterally. The visualized paranasal sinuses and mastoid air cells are clear. 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 MRI the brain dated 01/23/2024. TECHNIQUE: CT of the head was performed from the skull base to thevertex without contrast administration. Multiplanar reconstructions werereviewed. One or more of the following CT dose reduction techniques were utilized: - Automated Exposure Control (AEC) - Adjustment of mA and/or kV according to patient size - Iterative Reconstruction - ALARA or ALARA/IMAGE GENTLY FINDINGS: There is no visible soft tissue trauma or skull fracture. There is noacute intracranial hemorrhage, midline shift, mass effect, or intra-axial or extra-axial fluid collection. Wood-white matter differentiation is preserved. There is no evidence of acute cortical infarct. There is revisualization of an area of subacute infarct at the left thalamus and gabriela. This is better visualized on prior MRI of the brain. There are chronic bilateral basal ganglial lacunar infarcts. The ventricles andsulci are unremarkable. The basal cisterns are patent. The orbital contents are unremarkable bilaterally. The visualizedparanasal sinuses and mastoid air cells are clear. IMPRESSION: 1.No acute intracranial abnormalities. 2.Revisualization of an area of subacute infarct at the left thalamusand gabriela. This is better visualized on prior MRI of the brain. 3.Chronic bilateral basal ganglial lacunar infarcts. MRI may provide more detailed evaluation. > Interpreting Provider: Katie Rodriguez MD on 01/27/2024 12:26 PM Sherie Beltre MD CT ORDERABLES * (ABNORMAL) GLUCOSE - POINT OF CARE (01/27/2024 8:45 AM CDT) Pathologist [facility] Glucose WB/POC 109(H) 70 - 106 mg/dL 01/27/2024 8:50 AM CDT [facility] Specimen Type Cap Fingerstick 2023 8:50 AM CDT [facility] Blood BLOOD SPECIMEN / Unknown 01/27/2024 8:45 AM CDT 01/27/2024 8:49 AM CDT Sherie Beltre MD LAB - POINT OF CARE ORDERABLES Performing Organization Address City/[facility] Co de Phone Number [facility] [address] [place], [place] [phone] * (ABNORMAL) CK BLOOD (01/27/2024 5:37 AM CDT) Pathologist [facility] CK 228(H) 30 - 200 U/L 01/27/2024 12:52 PM CDT [facility] Blood BLOOD SPECIMEN / Unknown Venipuncture / Unknown 01/27/2024 5:37 AM CDT 01/27/2024 12:37 PM CDT Pricila Harrison [employer] LAB - CHEMISTRY ORDERABLES Performing Organization Address City/[facility]/ZIP Co de Phone Number [facility] [address] [place], [place] [id number] * PHOSPHORUS BLOOD (01/27/2024 5:37 AM CDT) [facility] Phosphorus 4.0 2.3 - 4.7 mg/dL 01/27/2024 6:03 AM CDT [facility] Blood BLOOD SPECIMEN / Unknown Venipuncture / Unknown 01/27/2024 5:37 AM CDT 01/27/2024 5:43 AM CDT Andrea Zamorano MD LAB - CHEMISTRY ORDAnirudh RAZO Performing Organization Address [facility] de Phone Number [facility] [id number] [place] [address] * MAGNESIUM BLOOD (01/27/2024 5:37 AM CDT) [facility] Magnesium 1.6 1.6 - 2.6 mg/dL 01/27/2024 6:03 AM CDT [facility] Blood BLOOD SPECIMEN / Unknown Venipuncture / Unknown 01/27/2024 5:37 AM CDT 01/27/2024 5:43 AM CDT Andrea Zamorano MD LAB - CHEMISTRY CHRISTIAN RAZO Performing Organization Address [facility] de Phone Number [facility] [address] [place] [address] * (ABNORMAL) CBC W AUTO DIFFERENTIAL (01/27/2024 5:37 AM CDT) [facility] WBC 8.2 4.0 - 10.7 x10E9/L 01/27/2024 5:55 AM CDT [facility] RBC Count 3.91(L) 4.30 - 5.80 x10E12/L 01/27/2024 5:55 AM CDT [facility] Hemoglobin 11.4(L) 13.3 - 17.5 g/dL 01/27/2024 5:55 AM CDT [facility] Hematocrit 35.5(L) 38.7 - 51.1 % 01/27/2024 5:55 AM CDT [facility] MCV 90.8 80.0 - 98.0 fL 01/27/2024 5:55 AM CDT [facility] MCH 29.2 26.7 - 33.6 pg 01/27/2024 5:55 AM CDT [facility] MCHC 32.1 31.7 - 36.3 g/dL 01/27/2024 5:55 AM CDT [facility] RDW-CV 13.5 11.3 - 14.8 % 01/27/2024 5:55 AM CDT [facility] Platelet Count 284 150 - 420 x10E9/L 01/27/2024 5:55 AM CDT [facility] MPV 9.4 7.8 - 11.4 fL 01/27/2024 5:55 AM CDT [facility] Neutrophil % 61.0 41.0 - 74.0 % 01/27/2024 5:55 AM CDT [facility] Lymphocyte % 26.0 17.0 - 47.0 % 01/27/2024 5:55 AM CDT [facility] Monocyte % 8.4 3.0 - 11.0 % 01/27/2024 5:55 AM CDT [facility] Eosinophil % 3.4 0.0 - 7.0 % 01/27/2024 5:55 AM CDT [facility] Basophil % 0.6 0.0 - 1.6 % 01/27/2024 5:55 AM CDT [facility] Immature Granulocytes % 0.6 0.0 - 1.0 % 01/27/2024 5:55 AM CDT [facility] Neutrophil Absolute 5.02 1.60 - 7.50 x10E9/L 01/27/2024 5:55 AM CDT [facility] Lymphocyte Absolute 2.14 1.00 - 4.40 x10E9/L 01/27/2024 5:55 AM CDT [facility] Monocyte Absolute 0.69 0.15 - 1.00 x10E9/L 01/27/2024 5:55 AM CDT [facility] Eosinophil Absolute 0.28 0.00 - 0.60 x10E9/L 01/27/2024 5:55 AM CDT [facility] Basophil Absolute 0.05 0.00 - 0.13 x10E9/L 01/27/2024 5:55 AM CDT [facility] Blood BLOOD SPECIMEN / Unknown Venipuncture / Unknown 01/27/2024 5:37 AM CDT 01/27/2024 5:43 AM CDT Andrea Zamorano MD LAB - HEMATOLOGY ORD ERABLES [facility] [address] [place] [address] * (ABNORMAL) COMPREHENSIVE METABOLIC PANEL (01/27/2024 5:37 AM CDT) Glucose 97 70 - 105 mg/dL 01/27/2024 6:03 AM CDT [facility] Sodium 138 136 - 145 mmol/L 01/27/2024 6:03 AM CDT [facility] Potassium 3.6 3.5 - 5.1 mmol/L 01/27/2024 6:03 AM T [facility] Chloride 102 98 - 107 mmol/L 01/27/2024 6:03 AM T [facility] CO2 25 22 - 29 mmol/L 01/27/2024 6:03 AM T [facility] Calcium 9.4 8.4 - 10.4 mg/dL 01/27/2024 6:03 AM T [facility] Anion Gap 11 6 - 16 mmol/L 01/27/2024 6:03 AM CDT [facility] BUN 12 7 - 26 mg/dL 01/27/2024 6:03 AM T [facility] Creatinine 0.76 0.72 - 1.25 mg/dL 01/27/2024 6:03 AM T [facility] Alkaline Phosphatase 90 40 - 150 U/L 01/27/2024 6:03 AM CDT [facility] ALT 16 0 - 55 U/L 01/27/2024 6:03 AM T [facility] AST 23 5 - 34 U/L 01/27/2024 6:03 AM T [facility] Protein Total 7.5 6.4 - 8.3 gm/dL 01/27/2024 6:03 AM T [facility] Albumin 2.5(L) 3.4 - 5.0 gm/dL 01/27/2024 6:03 AM T [facility] Bilirubin Total 0.4 0.2 - 1.2 mg/dL 01/27/2024 6:03 AM [facility] eGFR by CKD-EPI >90 >=90 mL/min/1.7 3 m2 01/27/2024 6:03 AM CDT [facility] Blood BLOOD SPECIMEN / Unknown Venipuncture / Unknown 01/27/2024 5:37 AM CDT 01/27/2024 5:43 AM CDT Andrea Zamorano MD LAB - CHEMISTRY CHRISTIAN RAZO Performing Organization Address [facility] Co de Phone Number [facility] [id number] [place] [address] * GLUCOSE - POINT OF CARE (01/27/2024 5:32 AM CDT) Glucose WB/POC 102 70 - 106 mg/dL 01/27/2024 5:37 AM CDT [facility] Specimen Type Cap Fingerstick 2023 5:37 AM CDT [facility] Blood BLOOD SPECIMEN / Unknown 01/27/2024 5:32 AM CDT 01/27/2024 5:37 AM CDT Sherie Beltre MD LAB - POINT OF CARE ORDERABLES Performing Organization Address [facility] de Phone Number [facility] [address] [place] [address] * GLUCOSE - POINT OF CARE (01/27/2024 12:54 AM CDT) Glucose WB/POC 95 70 - 106 mg/dL 01/27/2024 1:17 AM CDT [facility] Specimen Type Cap Fingerstick 2023 1:17 AM CDT [facility] Blood BLOOD SPECIMEN / Unknown 01/27/2024 12:54 AM CDT 01/27/2024 1:17 AM CDT Sherie Beltre MD LAB - POINT OF CARE ORDERABLES Performing Organization Address [facility] Co de Phone Number [facility] [address] [place] [phone] * GLUCOSE - POINT OF CARE (01/26/2024 8:46 PM CDT) Glucose WB/POC 90 70 - 106 mg/dL 01/26/2024 8:48 PM CDT [facility] Specimen Type Cap Fingerstick 2023 8:48 PM CDT [facility] Blood BLOOD SPECIMEN / Unknown 01/26/2024 8:46 PM CDT 01/26/2024 8:48 PM CDT Sherie Beltre MD LAB - POINT OF CARE ORDERABLES Performing Organization Address [facility] de Phone Number [facility] [address] [place] [address] * GLUCOSE - POINT OF CARE (01/26/2024 4:03 PM CDT) Glucose WB/POC 101 70 - 106 mg/dL 01/26/2024 4:07 PM CDT [facility] Specimen Type Cap Fingerstick 2023 4:07 PM CDT [facility] Blood BLOOD SPECIMEN / Unknown 01/26/2024 4:03 PM CDT 01/26/2024 4:07 PM CDT Sherie Beltre MD LAB - POINT OF CARE ORDERABLES Performing Organization Address [facility] de Phone Number [facility] [address] [place] [address] * XR ABDOMEN KUB (01/26/2024 3:06 PM CDT) Anatomical Region Laterality Modality Abdomen Radiographic Love ging 01/26/2024 3:21 PM CDT Impressions 01/26/2024 3:23 PM CDT IMPRESSION: A gastric tube terminates within the stomach. 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 NG tube placement. COMPARISON(s): Abdominal radiographs dated 01/25/2024. FINDINGS: A gastric tube terminates within the stomach. The visualized lung bases are grossly clear. The hemidiaphragms are unremarkable. No abnormally dilated bowel loops are seen to suggest obstruction. The osseous structures are unremarkable. 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 NG tube placement. COMPARISON(s): Abdominal radiographs dated 01/25/2024. FINDINGS: A gastric tube terminates within the stomach. The visualized lung bases are grossly clear. The hemidiaphragms are unremarkable. No abnormally dilated bowel loops are seen to suggest obstruction. The osseous structures are unremarkable. IMPRESSION: A gastric tube terminates within the stomach. > Interpreting Provider: Katie Rodriguez MD on 01/26/2024 3:23 PM Kel Jacome MD DIAGNOSTIC IMAGING O RDERABLES * (ABNORMAL) GLUCOSE - POINT OF CARE (01/26/2024 11:47 AM CDT) Glucose WB/POC 108(H) 70 - 106 mg/dL 01/26/2024 11:49 AM CDT [facility] Specimen Type Cap Fingerstick 2023 11:49 AM CDT [facility] Blood BLOOD SPECIMEN / Unknown 01/26/2024 11:47 AM CDT 01/26/2024 11:49 AM CDT Sherie Beltre MD LAB - POINT OF CARE ORDERABLES [facility] [address] [place] [address] * GLUCOSE - POINT OF CARE (01/26/2024 7:41 AM CDT) Glucose WB/POC 103 70 - 106 mg/dL 01/26/2024 7:45 AM CDT [facility] Specimen Type Cap Fingerstick 2023 7:45 AM CDT [facility] Blood BLOOD SPECIMEN / Unknown 01/26/2024 7:41 AM CDT 01/26/2024 7:45 AM CDT Sherie Beltre MD LAB - POINT OF CARE ORDERABLES Performing Organization Address [facility] Co de Phone Number [facility] [address] [place] [phone] * GLUCOSE - POINT OF CARE (01/26/2024 4:21 AM CDT) Glucose WB/POC 106 70 - 106 mg/dL 01/26/2024 4:28 AM CDT [facility] Specimen Type Cap Fingerstick 2023 4:28 AM CDT [facility] Blood BLOOD SPECIMEN / Unknown 01/26/2024 4:21 AM CDT 01/26/2024 4:28 AM CDT Sherie Beltre MD LAB - POINT OF CARE ORDERABLES Performing Organization Address [facility] de Phone Number [facility] [address] [place] [id number] * PHOSPHORUS BLOOD (01/26/2024 4:13 AM CDT) Phosphorus 4.2 2.3 - 4.7 mg/dL 01/26/2024 4:40 AM CDT [facility] Blood BLOOD SPECIMEN / Unknown Venipuncture / Unknown 01/26/2024 4:13 AM CDT 01/26/2024 4:20 AM CDT Andrea Zamorano MD LAB - CHEMISTRY [facility] RAZO Performing Organization Address City/[facility] Co de Phone Number [facility] [address] [place] [id number] * MAGNESIUM BLOOD (01/26/2024 4:13 AM CDT) Magnesium 1.7 1.6 - 2.6 mg/dL 01/26/2024 4:40 AM CDT [facility] Blood BLOOD SPECIMEN / Unknown Venipuncture / Unknown 01/26/2024 4:13 AM CDT 01/26/2024 4:20 AM CDT Andrea Zamorano MD LAB - CHEMISTRY CHRISTIAN RAZO [facility] Organization Address City/State/ZIP Co de Phone Number [facility] [address] [place] [address] * (ABNORMAL) CBC W AUTO DIFFERENTIAL (01/26/2024 4:13 AM CDT) WBC 11.7(H) 4.0 - 10.7 x10E9/L 01/26/2024 4:27 AM CDT [facility] RBC Count 3.77(L) 4.30 - 5.80 x10E12/L 01/26/2024 4:27 AM CDT [facility] Hemoglobin 11.1(L) 13.3 - 17.5 g/dL 01/26/2024 4:27 AM CDT [facility] Hematocrit 34.1(L) 38.7 - 51.1 % 01/26/2024 4:27 AM CDT [facility] MCV 90.5 80.0 - 98.0 fL 01/26/2024 4:27 AM CDT [facility] MCH 29.4 26.7 - 33.6 pg 01/26/2024 4:27 AM CDT [facility] MCHC 32.6 31.7 - 36.3 g/dL 01/26/2024 4:27 AM CDT [facility] RDW-CV 13.7 11.3 - 14.8 % 01/26/2024 4:27 AM CDT [facility] Platelet Count 262 150 - 420 x10E9/L 01/26/2024 4:27 AM CDT [facility] MPV 9.6 7.8 - 11.4 fL 01/26/2024 4:27 AM CDT [facility] Neutrophil % 70.3 41.0 - 74.0 % 01/26/2024 4:27 AM CDT [facility] Lymphocyte % 17.4 17.0 - 47.0 % 01/26/2024 4:27 AM CDT [facility] Monocyte % 8.1 3.0 - 11.0 % 01/26/2024 4:27 AM CDT [facility] Eosinophil % 3.5 0.0 - 7.0 % 01/26/2024 4:27 AM CDT [facility] Basophil % 0.3 0.0 - 1.6 % 01/26/2024 4:27 AM CDT [facility] Immature Granulocytes % 0.4 0.0 - 1.0 % 01/26/2024 4:27 AM CDT [facility] Neutrophil Absolute 8.21(H) 1.60 - 7.50 x10E9/L 01/26/2024 4:27 AM CDT [facility] Lymphocyte Absolute 2.03 1.00 - 4.40 x10E9/L 01/26/2024 4:27 AM CDT [facility] Monocyte Absolute 0.94 0.15 - 1.00 x10E9/L 01/26/2024 4:27 AM CDT [facility] Eosinophil Absolute 0.41 0.00 - 0.60 x10E9/L 01/26/2024 4:27 AM CDT [facility] Basophil Absolute 0.03 0.00 - 0.13 x10E9/L 01/26/2024 4:27 AM CDT [facility] Blood BLOOD SPECIMEN / Unknown Venipuncture / Unknown 01/26/2024 4:13 AM CDT 01/26/2024 4:20 AM CDT Andrea Zamorano MD LAB - HEMATOLOGY ORD ERABLES [facility] [address] [place] [address] * (ABNORMAL) COMPREHENSIVE METABOLIC PANEL (01/26/2024 4:13 AM CDT) [facility] Glucose 115(H) 70 - 105 mg/dL 01/26/2024 4:40 AM CDT [facility] Sodium 140 136 - 145 mmol/L 01/26/2024 4:40 AM CDT [facility] Potassium 3.6 3.5 - 5.1 mmol/L 01/26/2024 4:40 AM CDT [facility] Chloride 105 98 - 107 mmol/L 01/26/2024 4:40 AM CDT [facility] CO2 27 22 - 29 mmol/L 01/26/2024 4:40 AM CDT [facility] Calcium 8.8 8.4 - 10.4 mg/dL 01/26/2024 4:40 AM CDT [facility] Anion Gap 8 6 - 16 mmol/L 01/26/2024 4:40 AM CDT [facility] BUN 10 7 - 26 mg/dL 01/26/2024 4:40 AM CDT [facility] Creatinine 0.74 0.72 - 1.25 mg/dL 01/26/2024 4:40 AM T [facility] Alkaline Phosphatase 75 40 - 150 U/L 01/26/2024 4:40 AM CDT [facility] ALT 10 0 - 55 U/L 01/26/2024 4:40 AM CDT [facility] AST 21 5 - 34 U/L 01/26/2024 4:40 AM CDT [facility] Protein Total 7.2 6.4 - 8.3 gm/dL 01/26/2024 4:40 AM CDT [facility] Albumin 2.4(L) 3.4 - 5.0 gm/dL 01/26/2024 4:40 AM T [facility] Bilirubin Total 0.4 0.2 - 1.2 mg/dL 01/26/2024 4:40 AM T [facility] eGFR by CKD-EPI >90 >=90 mL/min/1.7 3 m2 01/26/2024 4:40 AM CDT [facility] Blood BLOOD SPECIMEN / Unknown Venipuncture / Unknown 01/26/2024 4:13 AM CDT 01/26/2024 4:20 AM CDT Andrea Zamorano MD LAB - CHEMISTRY CHRISTIAN RAZO [facility] Organization Address City/State/ZIP Co de Phone Number [facility] [address] [place] [address] * (ABNORMAL) GLUCOSE - POINT OF CARE (01/26/2024 1:36 AM CDT) Glucose WB/POC 110(H) 70 - 106 mg/dL 01/26/2024 1:40 AM CDT [facility] Specimen Type Cap Fingerstick 2023 1:40 AM CDT [facility] Blood BLOOD SPECIMEN / Unknown 01/26/2024 1:36 AM CDT 01/26/2024 1:40 AM CDT Sherie Beltre MD LAB - POINT OF CARE ORDERABLES Performing Organization Address [facility] Co de Phone Number [facility] [address] [place] [phone] * GLUCOSE - POINT OF CARE (01/25/2024 8:41 PM CDT) Glucose WB/POC 91 70 - 106 mg/dL 01/25/2024 8:49 PM CDT [facility] Specimen Type Cap Fingerstick 2023 8:49 PM CDT [facility] Blood BLOOD SPECIMEN / Unknown 01/25/2024 8:41 PM CDT 01/25/2024 8:49 PM CDT Sherie Beltre MD LAB - POINT OF CARE ORDERABLES Performing Organization Address [facility] de Phone Number [facility] [address] [place] [phone] * (ABNORMAL) GLUCOSE - POINT OF CARE (01/25/2024 4:09 PM CDT) Glucose WB/POC 160(H) 70 - 106 mg/dL 01/25/2024 4:13 PM CDT [facility] Specimen Type Cap Fingerstick 2023 4:13 PM CDT [facility] Blood BLOOD SPECIMEN / Unknown 01/25/2024 4:09 PM CDT 01/25/2024 4:13 PM CDT Sherie Beltre MD LAB - POINT OF CARE ORDERABLES Performing Organization Address [facility] Co de Phone Number [facility] [address] [place] [phone] * (ABNORMAL) GLUCOSE - POINT OF CARE (01/25/2024 11:48 AM CDT) Glucose WB/POC 167(H) 70 - 106 mg/dL 01/25/2024 11:53 AM CDT [facility] Specimen Type Cap Fingerstick 2023 11:53 AM CDT [facility] Blood BLOOD SPECIMEN / Unknown 01/25/2024 11:48 AM CDT 01/25/2024 11:53 AM CDT Sherie Beltre MD LAB - POINT OF CARE ORDERABLES [facility] [address] [place] [address] * XR ABDOMEN KUB (01/25/2024 11:19 AM CDT) Anatomical Region Laterality Modality Abdomen Radiographic Love ging 01/25/2024 11:4 3 AM CDT Narrative 01/25/2024 11:44 AM CDT PROCEDURE(s): XR ABDOMEN KUB DATE AND TIME OF EXAM(s): 01/25/2024 11:19 AM INDICATION(s): R11.2: Nausea with vomiting, unspecified COMPARISON(s): None available. FINDINGS/IMPRESSION: An enteric tube terminates in the stomach with the side port in the stomach. A nonspecific bowel gas pattern is seen. Left basilar interstitial opacities are noted in the visible lung norman. The heart is enlarged. No suspicious calcification is seen. Multilevel degenerative changes of the spine are noted. > Interpreting Provider: Chuy Patricio MD on 01/25/2024 11:44 AM Procedure Note Chuy Patricio MD - 01/25/2024 PROCEDURE(s): XR ABDOMEN KUB DATE AND TIME OF EXAM(s): 01/25/2024 11:19 AM INDICATION(s): R11.2: Nausea with vomiting, unspecified COMPARISON(s): None available. FINDINGS/IMPRESSION: An enteric tube terminates in the stomach with the side port in the stomach. A nonspecific bowel gas pattern is seen. Left basilar interstitial opacities are noted in the visible lung norman. The heart is enlarged.No suspicious calcification is seen. Multilevel degenerative changes of the spine are noted. > Interpreting Provider: Chuy Patricio MD on 01/25/2024 11:44 AM Manisha Terry MD DIAGNOSTIC IM AGING ORDERABLES * (ABNORMAL) GLUCOSE - POINT OF CARE (01/25/2024 8:21 AM CDT) Glucose WB/POC 185(H) 70 - 106 mg/dL 01/25/2024 8:26 AM CDT [facility] Specimen Type Cap Fingerstick 2023 8:26 AM CDT [facility] Blood BLOOD SPECIMEN / Unknown 01/25/2024 8:21 AM CDT 01/25/2024 8:26 AM CDT Sherie Beltre MD LAB - POINT OF CARE ORDERABLES Performing Organization Address [facility] Co de Phone Number [facility] [address] [place] [address] * PHOSPHORUS BLOOD (01/25/2024 3:04 AM CDT) Phosphorus 3.1 2.3 - 4.7 mg/dL 01/25/2024 3:39 AM CDT [facility] Blood BLOOD SPECIMEN / Unknown Venipuncture / Unknown 01/25/2024 3:04 AM CDT 01/25/2024 3:06 AM CDT Andrea Zamorano MD LAB - CHEMISTRY CHRISTIAN RAZO Performing Organization Address City/[facility]/ZIP Co de Phone Number [facility] [address] [place], [place] [id number] * MAGNESIUM BLOOD (01/25/2024 3:04 AM CDT) Magnesium 2.2 1.6 - 2.6 mg/dL 01/25/2024 3:39 AM CDT [facility] Blood BLOOD SPECIMEN / Unknown Venipuncture / Unknown 01/25/2024 3:04 AM CDT 01/25/2024 3:06 AM CDT Andrea Zamorano MD LAB - CHEMISTRY CHRISTIAN RAZO [facility] Organization Address City/State/ZIP Co de Phone Number [facility] [address] [place] [address] * (ABNORMAL) CBC W AUTO DIFFERENTIAL (01/25/2024 3:04 AM CDT) WBC 16.3(H) 4.0 - 10.7 x10E9/L 01/25/2024 3:17 AM CDT [facility] RBC Count 3.73(L) 4.30 - 5.80 x10E12/L 01/25/2024 3:17 AM CDT [facility] Hemoglobin 11.1(L) 13.3 - 17.5 g/dL 01/25/2024 3:17 AM CDT [facility] Hematocrit 32.8(L) 38.7 - 51.1 % 01/25/2024 3:17 AM CDT [facility] MCV 87.9 80.0 - 98.0 fL 01/25/2024 3:17 AM CDT [facility] MCH 29.8 26.7 - 33.6 pg 01/25/2024 3:17 AM CDT [facility] MCHC 33.8 31.7 - 36.3 g/dL 01/25/2024 3:17 AM CDT [facility] RDW-CV 13.4 11.3 - 14.8 % 01/25/2024 3:17 AM CDT [facility] Platelet Count 348 150 - 420 x10E9/L 01/25/2024 3:17 AM CDT [facility] MPV 9.7 7.8 - 11.4 fL 01/25/2024 3:17 AM CDT [facility] Neutrophil % 71.5 41.0 - 74.0 % 01/25/2024 3:17 AM CDT [facility] Lymphocyte % 19.1 17.0 - 47.0 % 01/25/2024 3:17 AM CDT [facility] Monocyte % 8.2 3.0 - 11.0 % 01/25/2024 3:17 AM CDT [facility] Eosinophil % 0.6 0.0 - 7.0 % 01/25/2024 3:17 AM CDT [facility] Basophil % 0.2 0.0 - 1.6 % 01/25/2024 3:17 AM CDT [facility] Immature Granulocytes % 0.4 0.0 - 1.0 % 01/25/2024 3:17 AM CDT [facility] Neutrophil Absolute 11.65(H) 1.60 - 7.50 x10E9/L 01/25/2024 3:17 AM CDT [facility] Lymphocyte Absolute 3.12 1.00 - 4.40 x10E9/L 01/25/2024 3:17 AM CDT [facility] Monocyte Absolute 1.33(H) 0.15 - 1.00 x10E9/L 01/25/2024 3:17 AM CDT [facility] Eosinophil Absolute 0.10 0.00 - 0.60 x10E9/L 01/25/2024 3:17 AM CDT [facility] Basophil Absolute 0.03 0.00 - 0.13 x10E9/L 01/25/2024 3:17 AM CDT [facility] Blood BLOOD SPECIMEN / Unknown Venipuncture / Unknown 01/25/2024 3:04 AM CDT 01/25/2024 3:06 AM CDT Andrea Zamorano MD LAB - HEMATOLOGY ORD ERABLES [facility] [address] [place] [address] * (ABNORMAL) COMPREHENSIVE METABOLIC PANEL (01/25/2024 3:04 AM CDT) [facility] Glucose 181(H) 70 - 105 mg/dL 01/25/2024 3:41 AM CDT [facility] Sodium 141 136 - 145 mmol/L 01/25/2024 3:41 AM CDT [facility] Potassium 3.2(L) 3.5 - 5.1 mmol/L 01/25/2024 3:41 AM CDT [facility] Chloride 102 98 - 107 mmol/L 01/25/2024 3:41 AM CDT [facility] CO2 26 22 - 29 mmol/L 01/25/2024 3:41 AM CDT [facility] Calcium 8.6 8.4 - 10.4 mg/dL 01/25/2024 3:41 AM CDT [facility] Anion Gap 13 6 - 16 mmol/L 01/25/2024 3:41 AM CDT [facility] BUN 12 7 - 26 mg/dL 01/25/2024 3:41 AM CDT [facility] Creatinine 0.78 0.72 - 1.25 mg/dL 01/25/2024 3:41 AM CDT [facility] Alkaline Phosphatase 63 40 - 150 U/L 01/25/2024 3:41 AM CDT [facility] ALT <6 0 - 55 U/L 01/25/2024 3:41 AM CDT [facility] AST 13 5 - 34 U/L 01/25/2024 3:41 AM CDT [facility] Protein Total 7.3 6.4 - 8.3 gm/dL 01/25/2024 3:41 AM CDT [facility] Albumin 2.5(L) 3.4 - 5.0 gm/dL 01/25/2024 3:41 AM CDT [facility] Bilirubin Total 0.4 0.2 - 1.2 mg/dL 01/25/2024 3:41 AM T [facility] eGFR by CKD-EPI >90 >=90 mL/min/1.7 3 m2 01/25/2024 3:41 AM CDT [facility] Blood BLOOD SPECIMEN / Unknown Venipuncture / Unknown 01/25/2024 3:04 AM CDT 01/25/2024 3:06 AM CDT Andrea Zamorano MD LAB - CHEMISTRY CHRISTIAN [facility] Organization Address City/State/ZIP Co de Phone Number [facility] [address] [place] [address] * (ABNORMAL) GLUCOSE - POINT OF CARE (01/24/2024 11:22 PM CDT) Glucose WB/POC 167(H) 70 - 106 mg/dL 01/24/2024 11:35 PM CDT [facility] Specimen Type Arterial 01/24/2024 11:35 PM CDT [facility] Blood BLOOD SPECIMEN / Unknown 01/24/2024 11:22 PM CDT 01/24/2024 11:35 PM CDT Sherie Beltre MD LAB - POINT OF CARE ORDERABLES Performing Organization Address [facility] Co de Phone Number [facility] [address] [place] [address] * (ABNORMAL) GLUCOSE - POINT OF CARE (01/24/2024 8:08 PM CDT) Pathologist [facility] Glucose WB/POC 190(H) 70 - 106 mg/dL 01/24/2024 8:13 PM CDT [facility] Specimen Type Arterial 01/24/2024 8:13 PM CDT [facility] Blood BLOOD SPECIMEN / Unknown 01/24/2024 8:08 PM CDT 01/24/2024 8:13 PM CDT Sherie Beltre MD LAB - POINT OF CARE ORDERABLES Performing Organization Address [facility] Co de Phone Number [facility] [address] [place] [address] * XR CHEST 1VW PORTABLE (01/24/2024 5:41 PM CDT) Anatomical Region Laterality Modality Chest Radiographic Love ging 01/24/2024 5:48 PM CDT Narrative 01/24/2024 5:49 PM CDT Portable Chest AP History: Basilar artery occlusion.. FINDINGS: Lungs are clear. No pleural effusion or pneumothorax seen. Cardiomegaly median sternotomy. ET tube and NG tube well-positioned.. > Interpreting Provider: Av Blackwood MD on 01/24/2024 5:49 PM Procedure Note Av Blackwood MD - 01/24/2024 Portable Chest AP History: Basilar artery occlusion.. FINDINGS: Lungs are clear. No pleural effusion or pneumothorax seen. Cardiomegaly median sternotomy. ET tube and NG tube well-positioned.. > Interpreting Provider: Av Blackwood MD on 01/24/2024 5:49 PM Manisha Terry MD DIAGNOSTIC IM AGING ORDERABLES * (ABNORMAL) GLUCOSE - POINT OF CARE (01/24/2024 4:22 PM CDT) Glucose WB/POC 200(H) 70 - 106 mg/dL 01/24/2024 8:03 PM CDT [facility] Specimen Type Arterial 01/24/2024 8:03 PM CDT [facility] Blood BLOOD SPECIMEN / Unknown 01/24/2024 4:22 PM CDT 01/24/2024 8:03 PM CDT Sherie Beltre MD LAB - POINT OF CARE ORDERABLES Performing Organization Address City/[facility]/ZIP Co de Phone Number [facility] [id number] [place] [address] * MAGNESIUM BLOOD (01/24/2024 2:30 PM CDT) Pathologist [facility] Magnesium 1.6 1.6 - 2.6 mg/dL 01/24/2024 3:05 PM CDT [facility] Blood BLOOD SPECIMEN / Unknown 01/24/2024 2:30 PM CDT 01/24/2024 2:45 PM CDT Manisha Terry MD LAB - CORPORATE INVESTIGATOR RY ORDERABLES Performing Organization Address [facility]/ZIP Co de Phone Number [facility] [address] [place] [address] * (ABNORMAL) RENAL FUNCTION PANEL (01/24/2024 2:30 PM CDT) Glucose 195(H) 70 - 105 mg/dL 01/24/2024 3:05 PM CDT [facility] Sodium 140 136 - 145 mmol/L 01/24/2024 3:05 PM CDT [facility] Potassium 3.2(L) 3.5 - 5.1 mmol/L 01/24/2024 3:05 PM CDT [facility] Chloride 102 98 - 107 mmol/L 01/24/2024 3:05 PM CDT [facility] CO2 25 22 - 29 mmol/L 01/24/2024 3:05 PM CDT [facility] Calcium 8.5 8.4 - 10.4 mg/dL 01/24/2024 3:05 PM CDT [facility] Anion Gap 13 6 - 16 mmol/L 01/24/2024 3:05 PM CDT [facility] BUN 11 7 - 26 mg/dL 01/24/2024 3:05 PM CDT [facility] Creatinine 0.88 0.72 - 1.25 mg/dL 01/24/2024 3:05 PM CDT [facility] Albumin 2.5(L) 3.4 - 5.0 gm/dL 01/24/2024 3:05 PM CDT [facility] Phosphorus 3.4 2.3 - 4.7 mg/dL 01/24/2024 3:05 PM CDT [facility] eGFR by CKD-EPI >90 >=90 mL/min/1.7 3 m2 01/24/2024 3:05 PM CDT [facility] Blood BLOOD SPECIMEN / Unknown 01/24/2024 2:30 PM CDT 01/24/2024 2:45 PM CDT Manisha Terry MD LAB - CORPORATE INVESTIGATOR RY ORDERABLES [facility] [address] [place] [address] * ECHO COMPLETE W CONTRAST W BUBBLE STUDY (01/24/2024 1:16 PM CDT) [facility] BSA 2.76 m2 [facility] PACS Anatomical Region Laterality Modality Ultrasound Narrative 01/24/2024 3:32 PM CDT ?Left??Ventricle: Left ventricle size is normal. Mildly to moderately increased wall thickness. Normal systolic function. EF 50-55%. Normal wall motion. Diastolic function is indeterminate. ?Right??Ventricle: Right ventricle is not well visualized. ?Aortic??Valve: Mild regurgitation. Left Ventricle Left ventricle size is normal. Mildly to moderately increased wall thickness. Normal systolic function. EF 50-55%. Normal wall motion. Diastolic function is indeterminate. Right Ventricle Right ventricle is not well visualized. Left Atrium Left atrium size is normal. Suboptimal bubbles study, unable to accurately assess for intra cardiac shunt. Right Atrium Right atrium size is normal. IVC/SVC IVC diameter is less than or equal to 21 mm and decreases greater than 50% during inspiration; therefore the estimated right atrial pressure is normal (~3 mmHg). Mitral Valve Valve structure is normal. No restricted motion. Trace regurgitation. No stenosis. Tricuspid Valve Valve structure is normal. No restricted motion. Trace regurgitation. No stenosis. Aortic Valve Valve structure is trileaflet. No restricted motion. Mild regurgitation. No stenosis. Pulmonic Valve Valve structure is normal. No restricted motion. No regurgitation. No stenosis. Ascending Aorta Normal sized sinus of Valsalva (aortic root) and ascending aorta. Pericardium No pericardial effusion. Study Details A complete 2D, color Doppler, spectral Doppler and M-mode echocardiogram was performed. The apical, parasternal, subcostal and suprasternal views were obtained. Definity and saline ultrasound enhancing agent used. Technical difficulties due to patient's body habitus and poor acoustic windows. Gladys Mcgee MD ECHO CUPID * (ABNORMAL) GLUCOSE - POINT OF CARE (01/24/2024 12:14 PM CDT) [facility] Glucose WB/POC 182(H) 70 - 106 mg/dL 01/24/2024 12:18 PM CDT [facility] Specimen Type Arterial 01/24/2024 12:18 PM CDT [facility] Blood BLOOD SPECIMEN / Unknown 01/24/2024 12:14 PM CDT 01/24/2024 12:18 PM CDT Sherie Beltre MD LAB - POINT OF CARE ORDERABLES [facility] [address] [place] [address] * CULTURE BLOOD (01/24/2024 10:23 AM CDT) [facility] Culture No growth day 5 VALERIA 01/29/2024 1:30 PM CDT [facility] MICROBIOLOGY Blood PERIPHERAL BLOOD / Unknown Venipuncture / Unknown 01/24/2024 10:23 AM CDT 01/24/2024 10:30 AM CDT Manisha Terry MD LAB - MICROBI OLOGY ORDERABLES [facility] MICROBIOLOGY [address] [place] [address], [facility] [phone] * CULTURE BLOOD (01/24/2024 10:08 AM CDT) Culture No growth day 5 VALERIA 01/29/2024 1:[address] [facility] MICROBIOLOGY Blood PERIPHERAL BLOOD / Unknown Venipuncture / Unknown 01/24/2024 10:08 AM CDT 01/24/2024 10:29 AM CDT Manisha Terry MD LAB - [facility] OLOGY ORDERABLES Performing Organization Address City/[facility]/ZIP Co de Phone Number [facility] MICROBIOLOGY [address] [place] [address], [facility] [phone] * (ABNORMAL) GLUCOSE - POINT OF CARE (01/24/2024 8:25 AM CDT) Glucose WB/POC 159(H) 70 - 106 mg/dL 01/24/2024 12:18 PM CDT [facility] Specimen Type Arterial 01/24/2024 12:18 PM CDT [facility] Blood BLOOD SPECIMEN / Unknown 01/24/2024 8:25 AM CDT 01/24/2024 12:18 PM CDT Sherie Beltre MD LAB - POINT OF CARE ORDERABLES [facility] [address] [place] [address] * (ABNORMAL) GLUCOSE - POINT OF CARE (01/24/2024 4:43 AM CDT) Glucose WB/POC 177(H) 70 - 106 mg/dL 01/24/2024 4:47 AM CDT [facility] Specimen Type Arterial 01/24/2024 4:47 AM CDT [facility] Blood BLOOD SPECIMEN / Unknown 01/24/2024 4:43 AM CDT 01/24/2024 4:47 AM CDT Sherie Beltre MD LAB - POINT OF CARE ORDERABLES Performing Organization Address [facility] Co de Phone Number [facility] [id number] [place] [phone] * PHOSPHORUS BLOOD (01/24/2024 4:43 AM CDT) Pathologist [facility] Phosphorus 2.9 2.3 - 4.7 mg/dL 01/24/2024 5:21 AM CDT [facility] Blood BLOOD SPECIMEN / Unknown Venipuncture / Unknown 01/24/2024 4:43 AM CDT 01/24/2024 4:54 AM CDT Andrea Zamorano MD LAB - CHEMISTRY CHRISTIAN RAZO Performing Organization Address [facility] de Phone Number [facility] [address] [place] [phone] * (ABNORMAL) MAGNESIUM BLOOD (01/24/2024 4:43 AM CDT) Pathologist [facility] Magnesium 1.3(L) 1.6 - 2.6 mg/dL 01/24/2024 5:21 AM CDT [facility] Blood BLOOD SPECIMEN / Unknown Venipuncture / Unknown 01/24/2024 4:43 AM CDT 01/24/2024 4:54 AM CDT Andrea Zamorano MD LAB - CHEMISTRY ORDAnirudh RAZO Performing Organization Address [facility] de Phone Number [facility] [address] [place] [phone] * (ABNORMAL) CBC W AUTO DIFFERENTIAL (01/24/2024 4:43 AM CDT) WBC 14.6(H) 4.0 - 10.7 x10E9/L 01/24/2024 5:03 AM CDT [facility] RBC Count 4.01(L) 4.30 - 5.80 x10E12/L 01/24/2024 5:03 AM CDT [facility] Hemoglobin 11.9(L) 13.3 - 17.5 g/dL 01/24/2024 5:03 AM CDT [facility] Hematocrit 34.9(L) 38.7 - 51.1 % 01/24/2024 5:03 AM CDT [facility] MCV 87.0 80.0 - 98.0 fL 01/24/2024 5:03 AM CDT [facility] MCH 29.7 26.7 - 33.6 pg 01/24/2024 5:03 AM CDT [facility] MCHC 34.1 31.7 - 36.3 g/dL 01/24/2024 5:03 AM CDT [facility] RDW-CV 13.4 11.3 - 14.8 % 01/24/2024 5:03 AM CDT [facility] Platelet Count 353 150 - 420 x10E9/L 01/24/2024 5:03 AM CDT [facility] MPV 9.5 7.8 - 11.4 fL 01/24/2024 5:03 AM CDT [facility] Neutrophil % 83.2(H) 41.0 - 74.0 % 01/24/2024 5:03 AM CDT [facility] Lymphocyte % 8.5(L) 17.0 - 47.0 % 01/24/2024 5:03 AM CDT [facility] Monocyte % 7.4 3.0 - 11.0 % 01/24/2024 5:03 AM CDT [facility] Eosinophil % 0.3 0.0 - 7.0 % 01/24/2024 5:03 AM CDT [facility] Basophil % 0.1 0.0 - 1.6 % 01/24/2024 5:03 AM CDT [facility] Immature Granulocytes % 0.5 0.0 - 1.0 % 01/24/2024 5:03 AM CDT [facility] Neutrophil Absolute 12.11(H) 1.60 - 7.50 x10E9/L 01/24/2024 5:03 AM CDT [facility] Lymphocyte Absolute 1.24 1.00 - 4.40 x10E9/L 01/24/2024 5:03 AM CDT [facility] Monocyte Absolute 1.08(H) 0.15 - 1.00 x10E9/L 01/24/2024 5:03 AM CDT [facility] Eosinophil Absolute 0.05 0.00 - 0.60 x10E9/L 01/24/2024 5:03 AM CDT [facility] Basophil Absolute 0.02 0.00 - 0.13 x10E9/L 01/24/2024 5:03 AM CDT [facility] Blood BLOOD SPECIMEN / Unknown Venipuncture / Unknown 01/24/2024 4:43 AM CDT 01/24/2024 4:54 AM CDT Andrea Zamorano MD LAB - HEMATOLOGY ORD ERABLES [facility] [address] [place] [address] * (ABNORMAL) COMPREHENSIVE METABOLIC PANEL (01/24/2024 4:43 AM CDT) Glucose 178(H) 70 - 105 mg/dL 01/24/2024 5:21 AM CDT [facility] Sodium 141 136 - 145 mmol/L 01/24/2024 5:21 AM CDT [facility] Potassium 3.1(L) 3.5 - 5.1 mmol/L 01/24/2024 5:21 AM CDT [facility] Chloride 105 98 - 107 mmol/L 01/24/2024 5:21 AM CDT [facility] CO2 26 22 - 29 mmol/L 01/24/2024 5:21 AM CDT [facility] Calcium 7.9(L) 8.4 - 10.4 mg/dL 01/24/2024 5:21 AM CDT [facility] Anion Gap 10 6 - 16 mmol/L 01/24/2024 5:21 AM CDT [facility] BUN 9 7 - 26 mg/dL 01/24/2024 5:21 AM CDT [facility] Creatinine 0.78 0.72 - 1.25 mg/dL 01/24/2024 5:21 AM CDT [facility] Alkaline Phosphatase 62 40 - 150 U/L 01/24/2024 5:21 AM CDT [facility] ALT 8 0 - 55 U/L 01/24/2024 5:21 AM CDT [facility] AST 17 5 - 34 U/L 01/24/2024 5:21 AM CDT [facility] Protein Total 7.1 6.4 - 8.3 gm/dL 01/24/2024 5:21 AM CDT [facility] Albumin 2.5(L) 3.4 - 5.0 gm/dL 01/24/2024 5:21 AM CDT [facility] Bilirubin Total 0.7 0.2 - 1.2 mg/dL 01/24/2024 5:21 AM CDT [facility] eGFR by CKD-EPI >90 >=90 mL/min/1.7 3 m2 01/24/2024 5:21 AM CDT [facility] Blood BLOOD SPECIMEN / Unknown Venipuncture / Unknown 01/24/2024 4:43 AM CDT 01/24/2024 4:54 AM CDT Andrea Zamorano MD LAB - CHEMISTRY ORDE DUNG Performing Organization Address City/[facility]/ZIP Co de Phone Number [facility] [address] [place] [address] * CULTURE SPUTUM+GRAM STAIN (01/24/2024 4:43 AM CDT) Culture Moderate normal oropharyngeal tae VALERIA 01/25/2024 11:[address] [facility]CRO[facility]OLOG[facility] Gram Stain >= 25 per low power field Polymorphonuclear cells 01/25/2024 11:[address] [facility]CRO[facility] Gram Stain <10 per low power field Squamous epithelial cells 01/25/2024 11:[address] [facility]CRO[facility]OLOG[facility] Gram Stain Moderate Gram-positive cocci 01/25/2024 11:[address] [facility] MICROBIOLOGY Microbiology SPUTUM / Unknown Collection / Unknown 01/24/2024 4:43 AM CDT 01/24/2024 4:52 AM CDT Andrea Zamorano MD LAB - MICROBIOLOGY O RDERABLES [facility]CRO[facility] [address] JOSLYN Smith [id number] [place] [address] * (ABNORMAL) LIPID PROFILE (01/24/2024 4:43 AM CDT) Cholesterol 229(H) <200 mg/dL 01/24/2024 5:21 AM CDT [facility] Triglycerides 179(H) <150 mg/dL 01/24/2024 5:21 AM CDT [facility] HDL Cholesterol 32(L) >40 mg/dL 5:21 AM CDT [facility] LDL Calculated 161(H) <130 mg/dL 01/24/2024 5:21 AM CDT [facility] VLDL Calculated 36(H) <=30 mg/dL 5:21 AM CDT [facility] Chol HDL Ratio 7.2(H) <4.5 01/24/2024 5:21 AM CDT [facility] LDL/HDL Ratio 5.0(H) <5.0 01/24/2024 5:21 AM CDT [facility] Blood BLOOD SPECIMEN / Unknown Venipuncture / Unknown 01/24/2024 4:43 AM CDT 01/24/2024 4:54 AM CDT Gladys Mcgee MD LAB - CHEMISTRY CHRISTIAN [facility] Organization Address City/State/ZIP Co de Phone Number [facility] [address] [place] [address] * CT HEAD NON CONTRAST (01/24/2024 3:57 AM CDT) Anatomical Region Laterality Modality Head Computed Tomogra phy 01/24/2024 8:08 AM CDT Impressions 01/24/2024 12:39 PM CDT IMPRESSION: No acute intracranial hemorrhage. Stable chronic findings. Edited by Keysha Carrasco on 01/24/2024 8:16 AM > Interpreting Provider: Maida Gonzalez MD on 01/24/2024 12:39 PM Narrative 01/24/2024 12:39 PM CDT PROCEDURE: ??CT HEAD WO CONTRAST DATE/TIME OF EXAM: ??01/24/2024 3:57 AM CLINICAL INFORMATION: None relevant/not provided if blank. 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 CT dose reduction technique was used, including Automated Exposure Control. FINDINGS: No acute parenchymal, intraventricular or extra-axial hemorrhage is identified. Stable chronic lacunar infarcts in the right basal ganglia and left thalamus again noted. Minimal bilateral periventricular white matter hyperdensity seen. No midline shift. Normal ventricular size. Patent basal cisterns. No definite hyperdensity seen within the basilar artery. Intact posterior fossa. Bilateral ethmoid sinus disease. Clear mastoid air cells. Procedure Note Maida Gonzalez MD - 01/24/2024 PROCEDURE: CT HEAD WO CONTRAST DATE/TIME OF EXAM: 01/24/2024 3:57 AM CLINICAL INFORMATION: None relevant/not provided if blank. 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 CT dose reduction technique was used, including Automated ExposureControl. FINDINGS: No acute parenchymal, intraventricular or extra-axial hemorrhage is identified. Stable chronic lacunar infarcts in the right basal gangliaand left thalamus again noted. Minimal bilateral periventricular whitematter hyperdensity seen. No midline shift. Normal ventricular size. Patentbasal cisterns. No definite hyperdensity seen within the basilar artery.Intact posterior fossa. Bilateral ethmoid sinus disease. Clear mastoid aircells. IMPRESSION: No acute intracranial hemorrhage. Stable chronic findings. Edited by Keysha Carrasco on 01/24/2024 8:16 AM > Interpreting Provider: Maida Gonzalez MD on 01/24/2024 12:39 PM Andrea Zamorano MD CT ORDERABLES * (ABNORMAL) GLUCOSE - POINT OF CARE (01/23/2024 11:52 PM CDT) Glucose WB/POC 187(H) 70 - 106 mg/dL 01/24/2024 4:35 AM CDT [facility] Specimen Type Arterial 01/24/2024 4:35 AM CDT [facility] Blood BLOOD SPECIMEN / Unknown 01/23/2024 11:52 PM CDT 01/24/2024 4:35 AM CDT Sherie Beltre MD LAB - POINT OF CARE ORDERABLES [facility] [address] [place] [address] * XR CHEST 1VW PORTABLE (01/23/2024 11:20 PM CDT) Anatomical Region Laterality Modality Chest Radiographic Love ging 01/24/2024 8:12 AM CDT Narrative 01/24/2024 8:15 AM CDT Portable AP Chest x-ray INDICATION: Z45.2: Encounter for adjustment and management of vascular access device COMPARISON: 01/23/2024 FINDINGS: Heart is enlarged but the heart size is stable. Endotracheal tube is unchanged and unremarkable. Left subclavian central venous catheter is in place with its tip in the superior vena cava. There is no focal infiltrate or consolidation. There is no pleural effusion or pneumothorax. > Interpreting Provider: Rony Soliman JR, MD on 01/24/2024 8:15 AM Procedure Note Rony Soliman MD - 01/24/2024 Portable AP Chest x-ray INDICATION: Z45.2: Encounter for adjustment and management of vascular access device COMPARISON: 01/23/2024 FINDINGS: Heart is enlarged but the heart size is stable. Endotracheal tube is unchanged and unremarkable. Left subclavian central venous catheter isin place with its tip in the superior vena cava. There is no focalinfiltrate or consolidation. There is no pleural effusion or pneumothorax. > Interpreting Provider: Rony Soliman JR, MD on 01/24/2024 8:15 AM Luis A Montoya MD DIAGNOSTI C IMAGING ORDERABLES * (ABNORMAL) GLUCOSE - POINT OF CARE (01/23/2024 8:23 PM CDT) Glucose WB/POC 228(H) 70 - 106 mg/dL 01/23/2024 8:28 PM CDT [facility] Specimen Type Cap Fingerstick 2023 8:28 PM CDT [facility] Blood BLOOD SPECIMEN / Unknown 01/23/2024 8:23 PM CDT 01/23/2024 8:28 PM CDT Sherie Beltre MD LAB - POINT OF CARE ORDERABLES Performing Organization Address [facility] Co de Phone Number [facility] [id number] [place] [address] * (ABNORMAL) DIFFERENTIAL MANUAL (01/23/2024 8:04 PM CDT) Neutrophil % 78(H) 41 - 74 % 01/23/2024 9:14 PM CDT [facility] Lymphocyte % 20 17 - 47 % 01/23/2024 9:14 PM CDT [facility] Monocyte % 2(L) 3 - 11 % 01/23/2024 9:14 PM CDT [facility] Neutrophil Absolute 18.17(H) 1.60 - 7.50 x10E9/L 01/23/2024 9:14 PM CDT [facility] Lymphocyte Absolute 4.66(H) 1.00 - 4.40 x10E9/L 01/23/2024 9:14 PM CDT [facility] Monocyte Absolute 0.47 0.15 - 1.00 x10E9/L 01/23/2024 9:14 PM CDT [facility] RBC Morphology NORMAL 01/23/2024 9:14 PM CDT [facility] Platelet Morphology NORMAL 01/23/2024 9:14 PM CDT [facility] Blood BLOOD SPECIMEN / Unknown Venipuncture / Unknown 01/23/2024 8:04 PM CDT 01/23/2024 8:23 PM CDT Andrea Zamorano MD LAB - HEMATOLOGY ORD ERABLES Performing Organization Address [facility] Co de Phone Number [facility] [address] [place] [address] * (ABNORMAL) MAGNESIUM BLOOD (01/23/2024 8:04 PM CDT) Magnesium 1.4(L) 1.6 - 2.6 mg/dL 01/23/2024 8:43 PM CDT [facility] Blood BLOOD SPECIMEN / Unknown Venipuncture / Unknown 01/23/2024 8:04 PM CDT 01/23/2024 8:23 PM CDT Andrea Zamorano MD LAB - CHEMISTRY CHRISTIAN RAZO Performing Organization Address City/[facility]/ZIP Co de Phone Number [facility] [address] [place] [phone] * (ABNORMAL) CBC W AUTO DIFFERENTIAL (01/23/2024 8:04 PM CDT) WBC 23.3(H) 4.0 - 10.7 x10E9/L 01/23/2024 9:14 PM CDT [facility] RBC Count 4.55 4.30 - 5.80 x10E12/L 01/23/2024 9:14 PM CDT [facility] Hemoglobin 13.8 13.3 - 17.5 g/dL 01/23/2024 9:14 PM CDT [facility] Hematocrit 41.0 38.7 - 51.1 % 01/23/2024 9:14 PM CDT [facility] MCV 90.1 80.0 - 98.0 fL 01/23/2024 9:14 PM CDT [facility] MCH 30.3 26.7 - 33.6 pg 01/23/2024 9:14 PM CDT [facility] MCHC 33.7 31.7 - 36.3 g/dL 01/23/2024 9:14 PM CDT [facility] RDW-CV 13.6 11.3 - 14.8 % 01/23/2024 9:14 PM CDT [facility] Platelet Count 320 150 - 420 x10E9/L 01/23/2024 9:14 PM CDT [facility] MPV 9.6 7.8 - 11.4 fL 01/23/2024 9:14 PM CDT [facility] Blood BLOOD SPECIMEN / Unknown Venipuncture / Unknown 01/23/2024 8:04 PM CDT 01/23/2024 8:23 PM CDT Andrea Zamorano MD LAB - HEMATOLOGY ORD ERAHATTIE [facility] [address] [place] [address] * (ABNORMAL) RENAL FUNCTION PANEL (01/23/2024 8:04 PM CDT) [facility] Signature Glucose 235(H) 70 - 105 mg/dL 01/23/2024 8:43 PM CDT [facility] Sodium 141 136 - 145 mmol/L 01/23/2024 8:43 PM CDT [facility] Potassium 3.2(L) 3.5 - 5.1 mmol/L 01/23/2024 8:43 PM CDT [facility] Chloride 103 98 - 107 mmol/L 01/23/2024 8:43 PM CDT [facility] CO2 24 22 - 29 mmol/L 01/23/2024 8:43 PM CDT [facility] Calcium 8.5 8.4 - 10.4 mg/dL 01/23/2024 8:43 PM CDT [facility] Anion Gap 14 6 - 16 mmol/L 01/23/2024 8:43 PM CDT [facility] BUN 9 7 - 26 mg/dL 01/23/2024 8:43 PM CDT [facility] Creatinine 0.88 0.72 - 1.25 mg/dL 01/23/2024 8:43 PM CDT [facility] Albumin 2.9(L) 3.4 - 5.0 gm/dL 01/23/2024 8:43 PM CDT [facility] Phosphorus 4.0 2.3 - 4.7 mg/dL 01/23/2024 8:43 PM CDT [facility] eGFR by CKD-EPI >90 >=90 mL/min/1.7 3 m2 01/23/2024 8:43 PM CDT [facility] Blood BLOOD SPECIMEN / Unknown Venipuncture / Unknown 01/23/2024 8:04 PM CDT 01/23/2024 8:23 PM CDT Andrea Zamorano MD LAB - CHEMISTRY ORDE DUNG [facility] Organization Address City/State/ZIP Co de Phone Number [facility] [address] [place] [address] * TROPONIN-I HIGH SENSITIVE BASELINE + 1HR (01/23/2024 8:04 PM CDT) Pathologist [facility] Troponin I High Sensitive 19 <=35 ng/L 01/23/2024 8:48 PM CDT [facility] Blood BLOOD SPECIMEN / Unknown Venipuncture / Unknown 01/23/2024 8:04 PM CDT 01/23/2024 8:23 PM CDT Gladys Mcgee MD LAB - CHEMISTRY CHRISTIAN RAZO Performing Organization Address City/[facility]/ZIP Co de Phone Number [facility] [address] [place] [address] * MRSA DNA PCR (01/23/2024 8:03 PM CDT) [facility] MRSA DNA by PCR Not detected Not detected 01/24/2024 4:[address] [facility] MICROBIOLOGY Microbiology SPECIMEN FROM NASAL FOSSAE / Unknown Collection / Unknown 01/23/2024 8:03 PM CDT 01/23/2024 8:[address] [facility] MICROBIOLOGY - 01/24/2024 4:53 AM CDT Methicillin-resistant Staphylococcus aureus (MRSA) DNA is not detected (presumed not colonized with MRSA). Andrea Zamorano MD LAB - MICROBIOLOGY O RDERABLES Performing Organization Address [facility] Co de Phone Number [facility] MICROBIOLOGY [address] [place] [address], [facility] [phone] * XR CHEST 1VW PORTABLE (01/23/2024 7:14 PM CDT) Anatomical Region Laterality Modality Chest Radiographic Love ging 01/23/2024 7:37 PM CDT Narrative 01/23/2024 7:38 PM CDT PROCEDURE(s): XR CHEST 1VW PORTABLE DATE AND TIME OF EXAM(s): 01/23/2024 7:15 PM INDICATION(s): J96.01: Acute respiratory failure with hypoxia (HCC). COMPARISON(s): Chest radiograph dated 01/23/2024. FINDINGS: Median sternotomy wires are seen. An endotracheal tube terminates between the clavicles and johan. A gastric tube terminates in the [id number], well below the diaphragm. The cardia mediastinal silhouette is grossly unremarkable. The lungs are grossly clear. No pneumothorax or pleural effusion is seen. No acute osseous abnormalities are seen. > Interpreting Provider: Katie Rodriguez MD on 01/23/2024 7:38 PM Procedure Note Katie Rodriguez MD - 01/23/2024 PROCEDURE(s): XR CHEST 1VW PORTABLE DATE AND TIME OF EXAM(s): 01/23/2024 7:15 PM INDICATION(s): J96.01: Acute respiratory failure with hypoxia (HCC). COMPARISON(s): Chest radiograph dated 01/23/2024. FINDINGS: Median sternotomy wires are seen. An endotracheal tubeterminates between the clavicles and johan. A gastric tube terminates in the [id number], well below the diaphragm. The cardia mediastinalsilhouette is grossly unremarkable. The lungs are grossly clear. No pneumothorax or pleural effusion is seen. No acute osseous abnormalities are seen. > Interpreting Provider: Katie Rodriguez MD on 01/23/2024 7:38 PM Andrea Zamorano MD DIAGNOSTIC IMAGING O RDERABLES * (ABNORMAL) GLUCOSE - POINT OF CARE (01/23/2024 5:24 PM CDT) [facility] Glucose WB/POC 276(H) 70 - 106 mg/dL 01/23/2024 5:51 PM CDT [facility] Specimen Type Cap Fingerstick 2023 5:51 PM CDT [facility] Blood BLOOD SPECIMEN / Unknown 01/23/2024 5:24 PM CDT 01/23/2024 5:51 PM CDT Sherie Beltre MD LAB - POINT OF CARE ORDERABLES [facility] [address] [place] [address] * (ABNORMAL) BLOOD GASES ARTERIAL (01/23/2024 5:14 PM CDT) [facility] pH Arterial 7.39 7.35 - 7.45 pH 01/23/2024 5:31 PM CDT [facility] pO2 Arterial 68(L) 80 - 100 mmHg 01/23/2024 5:31 PM CDT [facility] pCO2 Arterial 44 35 - 45 mmHg 01/23/2024 5:31 PM CDT [facility] HCO3 Arterial 26.6(H) 22.0 - 26.0 mmol/L 01/23/2024 5:31 PM CDT [facility] BE Arterial 1.2 -2.0 - 2.0 mmol/L 01/23/2024 5:31 PM CDT [facility] O2 Saturation Arterial 94 90 - 100 % 01/23/2024 5:31 PM CDT [facility] Sample Site Left RA 01/23/2024 5:31 PM CDT [facility] Mode APVcmv 01/23/2024 5:31 PM CDT [facility] O2 Device VENT 01/23/2024 5:31 PM CDT [facility] FI O2 30.0 % 01/23/2024 5:31 PM CDT [facility] Mechanical Tidal Volume (mL) 550 01/23/2024 5:31 PM CDT [facility] Mechanical Respiratory Rate (bpm) 18 01/23/2024 5:31 PM CDT [facility] PEEP (cmH2O) 5 01/23/2024 5:31 PM CDT [facility] Blood, arterial ARTERIAL BLOOD SPECIMEN / Unknown 01/23/2024 5:14 PM CDT 01/23/2024 5:14 PM CDT Gladys Mcgee MD LAB - BLOOD GASES OR DERABLES [facility] [address] [phone] * IR CAROTID CEREBRAL ANGIOGRAM (01/23/2024 4:55 [...] cerebral right vertebral artery 2. Angioplasty with [place] 2.5 mm X 15 mm balloon 4. [...] The diagnostic catheter was exchanged for a cook shuttle which was positioned at the right [...] the lesion. ?? A 2.5 x15 mm [place] angioplasty balloon was advanced over the exchange [...] removed. ??A run performed from the ?? ADMISSIONS DEAN demostrated a normal femoral artery bifurcation. ??The [...] and VAISHNAVI with large PCOM filling the BEACH ATTENDANT. The left vertebral artery angiogram shows a [...] 01/23/2024 Sherie Beltre MD IR ORDERABLES * MRI BRAIN WO CONTRAST (01/23/2024 12:49 PM CDT) Anatomical Region Laterality Modality Head Magnetic Resonan ce 01/23/2024 12:5 4 PM CDT Impressions 01/23/2024 1:06 PM CDT IMPRESSION: 1. Acute infarction within the left thalamus, hypothalamus and ipsilateral midbrain extending to the pontomesencephalic junction. 2. Global involutional changes, chronic hemorrhagic lacunar infarction right basal ganglia with superimposed moderate ischemic microangiopathy. > Interpreting Provider: Alexei Cruz DO on 01/23/2024 1:06 PM Narrative 01/23/2024 1:06 PM CDT PROCEDURE: ??MRI BRAIN WO CONTRAST DATE/TIME OF EXAM: ??01/23/2024 12:50 PM CLINICAL INFORMATION: Altered mental status. Unresponsive. COMPARISON: CT head 01/23/2024. CT angiogram head and neck 01/23/2024. TECHNIQUE: ?? MRI of the brain was performed without contrast. FINDINGS: Acute infarction within the medial left thalamus extending into the hypothalamic region and caudally into the medial aspect of the cerebral peduncle and midbrain. This extends caudally as far as the pontomesencephalic junction and occupies expected portions of the left medial longitudinal fasciculus (MLF) and 3rd cranial nerve nucleus. This is consistent with an acute infarction. This is probably associated with a thalamic perforating artery distribution. More subtle area of cytotoxic edema within the right frontal merchant radiata and extending into the lentiform nucleus, also compatible with an acute lacunar type infarction. There is a chronic lacunar infarction within the right frontal merchant radiata and also extending into the lentiform nucleus more posteriorly. This contains a peripheral rim of hemosiderin deposition from hemorrhage. Partially confluent FLAIR hyperintensities affecting the supratentorial white matter is nonspecific but likely indicative of chronic ischemic microangiopathy. Volume loss is commensurate with age. There is no hydrocephalus. No mass, mass effect or midline shift. Flow voids at the skull base are present. Midline structures are unremarkable. Empty sella configuration is commonly an incidental finding. Orbital contents are unremarkable. Mucosal thickening paranasal sinuses with fluid filling the nasal cavity and nasopharynx. There is fluid within both mastoid air cells. Procedure Note Alexei Cruz DO - 01/23/2024 PROCEDURE: MRI BRAIN WO CONTRAST DATE/TIME OF EXAM: 01/23/2024 12:50 PM CLINICAL INFORMATION: Altered mental status. Unresponsive. COMPARISON: CT head 01/23/2024. CT angiogram head and neck 01/23/2024. TECHNIQUE: MRI of the brain was performed without contrast. FINDINGS: Acute infarction within the medial left thalamus extending into the hypothalamic region and caudally into the medial aspect of the cerebral peduncle and midbrain. This extends caudally as far as the pontomesencephalic junction and occupies expected portions of the left medial longitudinal fasciculus (MLF) and 3rd cranial nerve nucleus. Thisis consistent with an acute infarction. This is probably associated with a thalamic perforating artery distribution. More subtle area of cytotoxic edema within the right frontal coronaradiata and extending into the lentiform nucleus, also compatible with an acute lacunar type infarction. There is a chronic lacunar infarction within the right frontal merchant radiata and also extending into the lentiform nucleus more posteriorly. This contains a peripheral rim of hemosiderin deposition fromhemorrhage. Partially confluent FLAIR hyperintensities affecting the supratentorial white matter is nonspecific but likely indicative of chronic ischemic microangiopathy. Volume loss is commensurate with age. There is no hydrocephalus. Nomass, mass effect or midline shift. Flow voids at the skull base are present. Midline structures are unremarkable. Empty sella configuration iscommonly an incidental finding. Orbital contents are unremarkable. Mucosal thickening paranasal sinuses with fluid filling the nasal cavity and nasopharynx. There is fluid within both mastoid air cells. IMPRESSION: 1. Acute infarction within the left thalamus, hypothalamus andipsilateral midbrain extending to the pontomesencephalic junction. 2. Global involutional changes, chronic hemorrhagic lacunar infarction right basal ganglia with superimposed moderate ischemic microangiopathy. > Interpreting Provider: Alexei Cruz DO on 01/23/2024 1:06 PM Sherie Beltre MD MR ORDERABLES * XR CHEST POST ETT (01/23/2024 11:53 AM CDT) Anatomical Region Laterality Modality Chest Radiographic Love ging 01/23/2024 11:5 9 AM CDT Impressions 01/23/2024 12:00 PM CDT Impression: 1. ET tube terminates 4.2 cm above the johan. 2. Stable mild cardiomegaly. No terrance congestive failure. > Interpreting Provider: Alexei Cruz DO on 01/23/2024 12:00 PM Narrative 01/23/2024 12:00 PM CDT Portable AP Chest x-ray INDICATION: ET tube placement. COMPARISON: None FINDINGS: Mild cardiomegaly. Pulmonary vascularity remains within normal limits. Midline sternotomy. The lungs are clear other than some mild scattered granulomatous change. No pneumothorax. ET tube terminates about 4.2 cm above the johan. Gastric tube extends to the left diaphragm. Distal tube and tip is not included within the [id number]. Procedure Note Alexei Cruz DO - 01/24/2024 Portable AP Chest x-ray INDICATION: ET tube placement. COMPARISON: None FINDINGS: Mild cardiomegaly. Pulmonary vascularity remains within normal limits. Midline sternotomy. The lungs are clear other than some mild scattered granulomatous change. No pneumothorax. ET tube terminates about 4.2 cm above the johan. Gastric tube extendsto the left diaphragm. Distal tube and tip is not included within the [id number]. Impression: 1. ET tube terminates 4.2 cm above the johan. 2. Stable mild cardiomegaly. No terrance congestive failure. > Interpreting Provider: Alexei Cruz DO on 01/23/2024 12:00 PM Gladys Mcgee MD DIAGNOSTIC IMAGING O RDERABLES * TROPONIN-I HIGH SENSITIVE REFLEX 1HOUR (01/23/2024 11:52 AM CDT) [facility] Troponin I High Sensitive 26 <=35 ng/L 01/23/2024 12:26 PM CDT [facility] Delta Troponin I HS 2 <6 ng/L 01/23/2024 12:26 PM CDT [facility] Blood BLOOD SPECIMEN / Unknown Venipuncture / Unknown 01/23/2024 11:52 AM CDT 01/23/2024 11:59 AM CDT Gladys Mcgee MD LAB - CHEMISTRY CHRISTIAN RAZO [facility] Organization Address City/State/ZIP Co de Phone Number [facility] [address] [place] [address] * URINE DRUG SCREEN IMMUNOASSAY (01/23/2024 11:46 AM CDT) [facility] Amphetamines Screen Urine Not detected Not detected 01/23/2024 12:12 PM CDT [facility] Barbiturates Screen Urine Not detected Not detected 01/23/2024 12:12 PM CDT [facility] Benzodiazepines Screen Urine Not detected Not detected 01/23/2024 12:12 PM CDT [facility] Cannabinoids Screen Urine Not detected Not detected 01/23/2024 12:12 PM CDT [facility] Cocaine Screen Urine Not detected Not detected 01/23/2024 12:12 PM CDT [facility] Fentanyl Urine Not detected Not detected 01/23/2024 12:12 PM CDT [facility] Methadone Screen Urine Not detected Not detected 01/23/2024 12:12 PM CDT [facility] Opiate Screen Urine Not detected Not detected 01/23/2024 12:12 PM CDT [facility] Phencyclidine Screen Urine Not detected Not detected 01/23/2024 12:12 PM CDT [facility] Urine URINE / Unknown Collection / Unknown 01/23/2024 11:46 AM CDT 01/23/2024 11:48 AM CDT Narrative [facility] - 01/23/2024 12:12 PM CDT This [...] MD LAB - URINE CHEMISTR Y ORDERABLES [facility] [address] [place] [address] * Intubation (01/23/2024 11:39 AM CDT) Narrative Gladys Mcgee MD - 01/23/2024 11:39 AM CDT Gladys Mcgee MD ? 01/24/2024 ??8:45 PM Intubation Date/Time: 01/23/2024 11:39 AM Performed by: Gladys Mcgee MD Authorized by: Gladys Mcgee MD ?? Consent: ??Consent obtained: ??Emergent situation [place] protocol: ??Relevant documents present and verified: yes [...] Mcgee MD PROCEDURE/MINOR SURG ICAL ORDERABLES * XR CHEST 1VW PORTABLE (01/23/2024 11:26 AM CDT) Anatomical Region Laterality Modality Chest Radiographic Love ging 01/23/2024 11:2 6 AM CDT Impressions 01/23/2024 11:27 AM CDT IMPRESSION: No acute disease. > Interpreting Provider: Av Blackwood MD on 01/23/2024 11:27 AM Narrative 01/23/2024 11:27 AM CDT Portable Chest AP History: Altered mental status.. FINDINGS: Lungs are clear. No pleural effusion or pneumothorax seen. Cardiomegaly and median sternotomy. Procedure Note Av Blackwood MD - 01/23/2024 Portable Chest AP History: Altered mental status.. FINDINGS: Lungs are clear. No pleural effusion or pneumothorax seen. Cardiomegaly and median sternotomy. IMPRESSION: No acute disease. > Interpreting Provider: Av Blackwood MD on 01/23/2024 11:27 AM Gladys cMgee MD DIAGNOSTIC IMAGING O RDERABLES * CT ANGIO BRAIN NECK STROKE (01/23/2024 10:57 AM CDT) Anatomical Region Laterality Modality Head Computed Tomogra phy 01/23/2024 11:1 0 AM CDT Impressions 01/23/2024 11:21 AM CDT IMPRESSION: Short segment severe, string-like stenosis of the lower basilar artery just above the vertebral confluence. > Interpreting Provider: Av Blackwood MD on 01/23/2024 11:21 AM Narrative 01/23/2024 11:21 AM CDT PROCEDURE: ??CT ANGIO BRAIN NECK STROKE DATE/TIME OF EXAM: ??01/23/2024 11:00 AM CLINICAL INFORMATION: None relevant/not provided if blank. Indication: R41.82: Altered mental status, unspecified R09.02: Hypoxemia Additional History: COMPARISON: None. TECHNIQUE: CT angiography of the brain and neck was performed without IV contrast followed by IV contrast, including 3D MIPS post processing CTA image reconstruction provided from an independent workstation. ??Stenosis measurements are based on NASCET criteria. CT dose reduction technique was used, including Automated Exposure Control. CONTRAST: ?? IOPAMIDOL 76 % IV SOLN:80 mL FINDINGS: Both common and internal carotid arteries are patent. The middle and anterior cerebral arteries are widely patent. The cavernous carotid arteries are heavily calcified. Right vertebral artery is dominant. Left vertebral artery is of small caliber. The basilar artery comes severely stenotic, and string-like over a short segment just distal to the confluence of the basilar arteries. The upper/top of the basilar artery is opacified as are both posterior cerebral arteries. Flow identified in both superior cerebellar arteries. The left MACHINE TOOL ELECTRICIAN has supply essentially. Procedure Note Av Blackwood MD - 01/23/2024 PROCEDURE: CT ANGIO BRAIN NECK STROKE DATE/TIME OF EXAM: 01/23/2024 11:00 AM CLINICAL INFORMATION: None relevant/not provided if blank. Indication: R41.82: Altered mental status, unspecified R09.02: Hypoxemia Additional History: COMPARISON: None. TECHNIQUE: CT angiography of the brain and neck was performed without IV contrast followed by IV contrast, including 3D MIPS post processing CTA image reconstruction provided from an independent workstation. Stenosis measurements are based on NASCET criteria. CT dose reduction technique was used, including Automated ExposureControl. CONTRAST: IOPAMIDOL 76 % IV SOLN:80 mL FINDINGS: Both common and internal carotid arteries are patent. The middle and anterior cerebral arteries are widely patent. The cavernous carotid arteries are heavily calcified. Right vertebral artery is dominant. Left vertebral artery is of small caliber. The basilar artery comes severely stenotic, and string-like overa short segment just distal to the confluence of the basilar arteries. The upper/top of the basilar artery is opacified as are both posteriorcerebral arteries. Flow identified in both superior cerebellar arteries. The left MACHINE TOOL ELECTRICIAN has supply essentially. IMPRESSION: Short segment severe, string-like stenosis of the lower basilar arteryjust above the vertebral confluence. > Interpreting Provider: Av Blackwood MD on 01/23/2024 11:21 AM Gladys Mcgee MD CT ORDERABLES * BLOOD GASES ART + COOX PANEL (01/23/2024 10:53 AM CDT) pH Arterial 7.43 7.35 - 7.45 pH 01/23/2024 11:13 AM CDT [facility] pO2 Arterial 92 80 - 100 mmHg 01/23/2024 11:13 AM CDT [facility] pCO2 Arterial 39 35 - 45 mmHg 11:13 AM CDT [facility] HCO3 Arterial 25.9 22.0 - 26.0 mmol/L 01/23/2024 11:13 AM CDT [facility] BE Arterial 1.6 -2.0 - 2.0 mmol/L 01/23/2024 11:13 AM CDT [facility] Oxyhemoglobin Arterial 96.0 % 01/23/2024 11:13 AM CDT [facility] Dexoyhemoglobin (HHB) % 1.6 % 01/23/2024 11:13 AM CDT [facility] O2 Content Arterial 18.6 Interpret within clinical context ml/dL 01/23/2024 11:13 AM CDT [facility] TCO2 Arterial 27 18 - 27 mmol/L 01/23/2024 11:13 AM CDT [facility] O2 Saturation Arterial 98 90 - 100 % 01/23/2024 11:13 AM CDT [facility] Methemoglobin 1.1 0.0 - 2.0 % 01/23/2024 11:13 AM CDT [facility] Carboxyhemoglobin 1.3 0.0 - 2.0 % 2023 11:13 AM CDT [facility] Hemoglobin by COOX 13.7 12.0 - 17.6 g/dL 01/23/2024 11:13 AM CDT [facility] Hematocrit COOX 41.0 35.2 - 51.7 % 01/23/2024 11:13 AM CDT [facility] Kevin's Test Yes 01/23/2024 11:13 AM CDT [facility] Sample Site Left RA 01/23/2024 11:13 AM CDT [facility] O2 Device Cannula 01/23/2024 11:13 AM CDT [facility] Liter Flow (LPM) 6 01/23/20 24 11:13 AM CDT [facility] Business Database Analyst ID JustoKirill 01/23/2024 11:13 AM CDT [facility] Blood, arterial ARTERIAL BLOOD SPECIMEN / Unknown 01/23/2024 10:53 AM CDT 01/23/2024 10:53 AM CDT Gladys Mcgee MD LAB - BLOOD GASES OR DERABLES [facility] [address] [phone] * EKG 12-LEAD (01/23/2024 10:46 AM CDT) [facility] Ventricular Rate 96 BPM [facility] Atrial Rate 96 BPM [facility] P-R Interval 146 ms [facility] QRS Duration ms 78 ms [facility] Q-T Interval ms 360 ms [facility] QTC Calculation (Bezet) 454 ms [facility] Calculated P [place] 79 degrees [facility] Calculated R [place] 76 degrees [facility] Calculated T [place] -77 degrees [facility] Interpretation EKG Normal sinus rhythm ST & T wave abnormality, consider inferolateral ischemia Abnormal ECG When compared with ECG of 26-JUL-2022 16:28, Premature ventricular complexes are no longer Present Non-specific change in ST segment in Anterior leads Inverted T waves have replaced nonspecific T wave abnormality in Inferior leads T wave amplitude has increased in Anterior leads Confirmed by JUSTICE PURVIS MD ([id number]) on 01/23/2024 2:35:44 PM [facility] 01/23/2024 10:4 6 AM CDT 01/23/2024 2:35 PM CDT Gladys Mcgee MD ECG ORDERABLES Performing Organization Address [facility]/State/ZIP Co de Phone Number [facility] * INR - POCT (01/23/2024 10:45 AM CDT) [facility] INR 1.1 0.9 - 1.2 01/23/2024 10:56 AM CDT [facility] Blood BLOOD SPECIMEN / Unknown 01/23/2024 10:45 AM CDT 01/23/2024 10:56 AM CDT Gladys Mcgee MD LAB - POINT OF CARE ORDERABLES [facility] [address] [place] [address] * (ABNORMAL) CREATININE - POCT INTERFACED (01/23/2024 10:45 AM CDT) [facility] Creatinine POCT 1.00 0.70 - 1.20 mg/dL 01/23/2024 10:56 AM CDT [facility] eGFR 84(L) >=90 mL/min/1.7 3 m2 01/23/2024 10:56 AM CDT [facility] Blood BLOOD SPECIMEN / Unknown 01/23/2024 10:45 AM CDT 01/23/2024 10:56 AM CDT Gladys Mcgee MD LAB - POINT OF CARE ORDERABLES [facility] [address] [place] [address] * CT BRAIN - Stroke (01/23/2024 10:39 AM CDT) Anatomical Region Laterality Modality Head Computed Tomogra phy 01/23/2024 10:4 7 AM CDT Impressions 01/23/2024 10:57 AM CDT IMPRESSION: 1. No acute intracranial hemorrhage. 2. Involutional changes with chronic lacunar infarctions and ischemic microangiopathy. 3. Age indeterminate infarction left thalamus and less likely a sequela of trans-synaptic degeneration. MRI brain if there is concern for acute ischemia. > Interpreting Provider: Alexei Cruz DO on 01/23/2024 10:57 AM Narrative 01/23/2024 10:57 AM CDT PROCEDURE: ??CT BRAIN STROKE DATE/TIME OF EXAM: ??01/23/2024 10:39 AM CLINICAL INFORMATION: Found unresponsive with vodka in hand. Unequal pupils. COMPARISON: None. TECHNIQUE: Noncontrast CT brain was performed utilizing standard protocol. CT dose reduction technique was used, including Automated Exposure Control. Viz AI used for intracranial hemorrhage detection FINDINGS: There is no mass effect, midline shift or acute intracranial hemorrhage. Chronic lacunar infarction right frontal merchant radiata and ipsilateral lentiform nucleus. There is an additional lacunar infarction within the left medulla and extending into the dorsal gabriela. Hypoattenuation extends cranially into the cerebral peduncle and ipsilateral thalamus. This may also represent a lacunar infarction but technically indeterminant. MRI of the brain may be obtained if there is concern for acute ischemia. Less likely this is from trans-synaptic degeneration. Additionally there are scattered areas of hypoattenuation affecting the supratentorial white matter, probably underlying ischemic microangiopathy. There is no depressed calvarial fracture. The sinuses are clear. Partially opacified mastoid air cells bilaterally. No aggressive bone destruction or coalescence. Orbital contents are unremarkable. Nasal airway. Procedure Note Nancy AlexeiDO - 01/23/2024 PROCEDURE: CT BRAIN STROKE DATE/TIME OF EXAM: 01/23/2024 10:39 AM CLINICAL INFORMATION: Found unresponsive with vodka in hand. Unequal pupils. COMPARISON: None. TECHNIQUE: Noncontrast CT brain was performed utilizing standard protocol. CT dose reduction technique was used, including Automated ExposureControl. Viz AI used for intracranial hemorrhage detection FINDINGS: There is no mass effect, midline shift or acute intracranial hemorrhage. Chronic lacunar infarction right frontal merchant radiata and ipsilateral lentiform nucleus. There is an additional lacunar infarction within the left medulla and extending into the dorsal gabriela. Hypoattenuation extends cranially into the cerebral peduncle and ipsilateral thalamus. This may also represent a lacunar infarction but technically indeterminant. MRIof the brain may be obtained if there is concern for acute ischemia. Less likely this is from trans-synaptic degeneration. Additionally there are scattered areas of hypoattenuation affecting the supratentorial white matter, probably underlying ischemicmicroangiopathy. There is no depressed calvarial fracture. The sinuses are clear.Partially opacified mastoid air cells bilaterally. No aggressive bone destructionor coalescence. Orbital contents are unremarkable. Nasal airway. IMPRESSION: 1. No acute intracranial hemorrhage. 2. Involutional changes with chronic lacunar infarctions and ischemic microangiopathy. 3. Age indeterminate infarction left thalamus and less likely a sequelaof trans-synaptic degeneration. MRI brain if there is concern for acute ischemia. > Interpreting Provider: Alexei Cruz DO on 01/23/2024 10:57 AM Gladys Mcgee MD CT ORDERABLES * (ABNORMAL) HEMOGLOBIN A1C (01/23/2024 10:39 AM CDT) Hemoglobin A1c 6.1(H) <5.7 % 01/23/2024 7:28 PM CDT [facility] Estimated Average Glucose 128 mg/dL 01/23/2024 7:28 PM CDT [facility] Blood BLOOD SPECIMEN / Unknown Venipuncture / Unknown 01/23/2024 10:39 AM CDT 01/23/2024 10:42 AM CDT Narrative [facility] - 01/23/2024 7:28 PM CDT HbA1c [...] method. Gladys Mcgee MD LAB - CHEMISTRY ORDE DUNG Performing Organization Address City/[facility]/ZIP Co de Phone Number [facility] [id number] [place] [address] * SLIDE SCAN HEMATOLOGY (01/23/2024 10:39 AM CDT) Pathologist [facility] RBC Morphology RED CELL INDICIES CONFIRMED 01/23/2024 11:33 AM CDT [facility] Blood BLOOD SPECIMEN / Unknown Venipuncture / Unknown 01/23/2024 10:39 AM CDT 01/23/2024 10:42 AM CDT Gladys Mcgee MD LAB - HEMATOLOGY ORD ERABLES Performing Organization Address [facility] Co de Phone Number [facility] [address] [place] [address] * (ABNORMAL) CK BLOOD (01/23/2024 10:39 AM CDT) [facility] CK 1,415(H) 30 - 200 U/L 01/23/2024 11:35 AM CDT [facility] Blood BLOOD SPECIMEN / Unknown Venipuncture / Unknown 01/23/2024 10:39 AM CDT 01/23/2024 10:42 AM CDT Gladys Mcgee MD LAB - CHEMISTRY CHRISTIAN RAZO Performing Organization Address [facility] Co de Phone Number [facility] [address] [place] [address] * ALCOHOL ETHYL BLOOD (01/23/2024 10:39 AM CDT) [facility] Ethanol <10.0 <10 mg/dL 01/23/2024 11:09 AM CDT [facility] Ethanol Calculated <0.010 <=0.100 gm/dL 01/23/2024 11:09 AM CDT [facility] Blood BLOOD SPECIMEN / Unknown Venipuncture / Unknown 01/23/2024 10:39 AM CDT 01/23/2024 10:42 AM CDT Narrative [facility] - 01/23/2024 11:09 AM CDT Ethanol [...] - CHEMISTRY CHRISTIAN RAZO Performing Organization Address City/[facility]/ZIP Co de Phone Number [facility] [address] [place] [address] * TYPE + SCREEN PANEL (01/23/2024 10:39 AM CDT) Pathologist [facility] ABO Rh O NEG 01/23/2024 11:33 AM CDT [facility] Comment:History checked. Antibody Screen NEG 11:33 AM CDT [facility] Blood Bank BLOOD SPECIMEN / Unknown Venipuncture / Unknown 01/23/2024 10:39 AM CDT 01/23/2024 10:42 AM CDT Gladys Mcgee MD LAB - BLOOD BANK ORD ERABLES Performing Organization Address [facility] Co de Phone Number [facility] [address] [place] [id number] [phone] * TROPONIN-I HIGH SENSITIVE BASELINE + 1HR (01/23/2024 10:39 AM CDT) Troponin I High Sensitive 24 <=35 ng/L 01/23/2024 11:13 AM CDT [facility] Blood BLOOD SPECIMEN / Unknown Venipuncture / Unknown 01/23/2024 10:39 AM CDT 01/23/2024 10:42 AM CDT Gladys Mcgee MD LAB - CHEMISTRY ORDE RABLES Performing Organization Address [facility] Co de Phone Number [facility] [address] [place] [address] * PTT (01/23/2024 10:39 AM CDT) PTT 28.3 23.0 - 38.4 sec 01/23/2024 10:55 AM CDT [facility] Blood BLOOD SPECIMEN / Unknown Venipuncture / Unknown 01/23/2024 10:39 AM CDT 01/23/2024 10:42 AM CDT Narrative [facility] - 01/23/2024 10:55 AM CDT Heparin Therapeutic Range for PTT: ??69.0 - 110.0 seconds. Gladys Mcgee MD LAB - COAGULATION OR DERABLES Performing Organization Address [facility] Co de Phone Number [facility] [address] [place], [place] [address] * PT-INR (01/23/2024 10:39 AM CDT) PT 13.3 12.1 - 14.8 sec 01/23/2024 10:55 AM CDT [facility] INR 1.0 0.9 - 1.1 01/23/2024 10:55 AM T [facility] Blood BLOOD SPECIMEN / Unknown Venipuncture / Unknown 01/23/2024 10:39 AM CDT 01/23/2024 10:42 AM CDT Narrative [facility] - 01/23/2024 10:55 AM CDT Conventional Warfarin Anticoagulant Therapy: INR Reference Range: ??2.0-3.0 Intensive Warfarin Anticoagulant Therapy: INR Reference Range: ? 2.5-3.5 Gladys Mcgee MD LAB - COAGULATION OR DERABLES [facility] [address] [place] [address] * (ABNORMAL) COMPREHENSIVE METABOLIC PANEL (01/23/2024 10:39 AM CDT) Glucose 168(H) 70 - 105 mg/dL 01/23/2024 11:09 AM CDT [facility] Sodium 142 136 - 145 mmol/L 01/23/2024 11:09 AM CDT [facility] Potassium 3.6 3.5 - 5.1 mmol/L 01/23/2024 11:09 AM T [facility] Chloride 101 98 - 107 mmol/L 01/23/2024 11:09 AM [facility] CO2 24 22 - 29 mmol/L 01/23/2024 11:09 AM T [facility] Calcium 9.0 8.4 - 10.4 mg/dL 01/23/2024 11:09 AM T [facility] Anion Gap 17(H) 6 - 16 mmol/L 01/23/2024 11:09 AM CDT [facility] BUN 10 7 - 26 mg/dL 01/23/2024 11:09 AM CDT [facility] Creatinine 0.97 0.72 - 1.25 mg/dL 01/23/2024 11:09 AM [facility] Alkaline Phosphatase 74 40 - 150 U/L 01/23/2024 11:09 AM [facility] ALT 10 0 - 55 U/L 01/23/2024 11:09 AM CDT [facility] AST 27 5 - 34 U/L 01/23/2024 11:09 AM CDT [facility] Protein Total 9.0(H) 6.4 - 8.3 gm/dL 01/23/2024 11:09 AM CDT [facility] Albumin 3.3(L) 3.4 - 5.0 gm/dL 01/23/2024 11:09 AM CDT [facility] Bilirubin Total 0.6 0.2 - 1.2 mg/dL 01/23/2024 11:09 AM CDT [facility] eGFR by CKD-EPI 87(L) >=90 mL/min/1.7 3 m2 01/23/2024 11:09 AM CDT [facility] Blood BLOOD SPECIMEN / Unknown Venipuncture / Unknown 01/23/2024 10:39 AM CDT 01/23/2024 10:42 AM CDT Gladys Mcgee MD LAB - CHEMISTRY CHRISTIAN [facility] Organization Address City/State/[facility] Co de Phone Number [facility] [address] [place] [address] * (ABNORMAL) CBC W AUTO DIFFERENTIAL (01/23/2024 10:39 AM CDT) WBC 22.5(H) 4.0 - 10.7 x10E9/L 01/23/2024 11:33 AM CDT [facility] RBC Count 4.85 4.30 - 5.80 x10E12/L 01/23/2024 11:33 AM CDT [facility] Hemoglobin 14.5 13.3 - 17.5 g/dL 01/23/2024 11:33 AM CDT [facility] Hematocrit 43.3 38.7 - 51.1 % 01/23/2024 11:33 AM CDT [facility] MCV 89.3 80.0 - 98.0 fL 01/23/2024 11:33 AM CDT [facility] MCH 29.9 26.7 - 33.6 pg 01/23/2024 11:33 AM CDT [facility] MCHC 33.5 31.7 - 36.3 g/dL 01/23/2024 11:33 AM CDT [facility] RDW-CV 13.3 11.3 - 14.8 % 01/23/2024 11:33 AM CDT [facility] Platelet Count 351 150 - 420 x10E9/L 01/23/2024 11:33 AM CDT [facility] MPV 9.4 7.8 - 11.4 fL 01/23/2024 11:33 AM CDT [facility] Neutrophil % 89.9(H) 41.0 - 74.0 % 01/23/2024 11:33 AM CDT [facility] Lymphocyte % 3.9(L) 17.0 - 47.0 % 01/23/2024 11:33 AM CDT [facility] Monocyte % 5.5 3.0 - 11.0 % 01/23/2024 11:33 AM CDT [facility] Eosinophil % 0.0 0.0 - 7.0 % 01/23/2024 11:33 AM CDT [facility] Basophil % 0.1 0.0 - 1.6 % 01/23/2024 11:33 AM CDT [facility] Immature Granulocytes % 0.6 0.0 - 1.0 % 01/23/2024 11:33 AM CDT [facility] Neutrophil Absolute 20.21(H) 1.60 - 7.50 x10E9/L 01/23/2024 11:33 AM CDT [facility] Lymphocyte Absolute 0.88(L) 1.00 - 4.40 x10E9/L 01/23/2024 11:33 AM CDT [facility] Monocyte Absolute 1.24(H) 0.15 - 1.00 x10E9/L 01/23/2024 11:33 AM CDT [facility] Eosinophil Absolute 0.00 0.00 - 0.60 x10E9/L 01/23/2024 11:33 AM CDT [facility] Basophil Absolute 0.03 0.00 - 0.13 x10E9/L 01/23/2024 11:33 AM CDT [facility] Blood BLOOD SPECIMEN / Unknown Venipuncture / Unknown 01/23/2024 10:39 AM CDT 01/23/2024 10:42 AM CDT Gladys Mcgee MD LAB - HEMATOLOGY ORD ERABLES [facility] [address] [place] [phone] documented in this encounter Visit Diagnoses Diagnosis Altered mental status, unspecified altered mental status type- Primary Altered mental status, unspecified altered mental status type Hypoxia Hypoxemia 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 without mention of cerebral infarction Acute hypoxemic respiratory failure (HCC) Encounter for central line placement Fitting and adjustment of vascular catheter Nausea and vomiting, unspecified vomiting type Tracheostomy in place (HCC) Tracheostomy status Staphylococcus aureus infection Methicillin susceptible Staphylococcus aureus in conditions classified elsewhere and of unspecified site Hypoxia Hypoxemia Staphylococcus aureus infection Methicillin susceptible Staphylococcus aureus in conditions classified elsewhere and of unspecified site CAD (coronary artery disease) Coronary atherosclerosis of unspecified type of vessel, havasupai or graft Essential hypertension documented in this encounter Administered Medications Inactive Administered Medications - up to 3 most recent administrations Medication Order MAR Action Action Date Dose Rate Site 0.9% NaCl infusion at 75 mL/hr, Intravenous, CONTINUOUS, Starting on Sun02/07/24 at 1715, Until Sun02/08/24 at 1112 $ New Bag/Syringe 02/08/2024 5:54 AM CDT 75 mL/ hr Current Rate 02/08/2024 12:19 AM CDT 75 mL/hr Restarted 02/08/2024 12:10 AM CDT 75 mL/hr 0.9% NaCl injection 1-10 mL 1-10 mL, Intracatheter, PRN, Other, peripheral line flush, Starting on Sun01/23/24 at 1032, Until Sun02/15/24 at 1849, Flush peripheral IV catheter with 1-10 mL of normal saline before and after medications and prn to clear blood from the line or to verify patency. 0.9% NaCl injection 3 mL 3 mL, Intracatheter, EVERY 8 HOURS, First dose on Sun01/23/24 at 1400, Until Discontinued, Flush peripheral IV catheter with 3 mL of normal saline every 8 hours. $ Given 02/15/2024 1:50 PM CDT 3 mL $ Given 02/15/2024 5:33 AM CDT 3 mL $ Given 02/14/2024 8:56 PM CDT 3 mL 0.9% NaCl IV bolus 500 mL, at 967.74 mL/hr, Administer over 31 Minutes, ONCE, 1 dose, On Sun02/04/24 at 1230 Current Rate 02/04/2024 12:23 PM CDT 967.74 mL/hr $ New Bag/Syringe 02/04/2024 12:20 PM CDT 500 mL 967.7 4 mL/hr 0.9% NaCl IV bolus 500 mL, at 491.8 mL/hr, Administer over 61 Minutes, ONCE, 1 dose, On Tu02/12/24 at 1530 $ New Bag/Syringe 02/12/2024 3:04 PM CDT 500 mL 491.8 mL/hr acetaminophen (Tylenol) tablet 650 mg 650 mg, Enteral Tube, EVERY 4 HOURS, 6 doses, First dose on [place] 01/24/24 at 0545, Last dose on Sun01/25/24 at 0145, Patient preference for lesser PRN pain meds [...] patient cannot tolerate oral intake $ Given 01/25/2024 2:15 AM CDT 650 mg OG Tube $ Given 01/24/2024 10:00 PM CDT 650 mg O G Tube $ Given 01/24/2024 6:26 PM CDT 650 mg OG Tube acetaminophen (Tylenol) tablet 650 mg 650 mg, Enteral Tube, EVERY 4 HOURS, First dose on Sun01/25/24 at 1200, Until Discontinued, Patient preference for lesser PRN pain meds [...] patient cannot tolerate oral intake $ Given 01/29/2024 12:33 PM CDT 650 mg NG T ube $ Given 01/29/2024 8:00 AM CDT 650 mg NG Tube $ Given 01/29/2024 4:28 AM CDT 650 mg NG Tube acetaminophen (Tylenol) tablet 650 mg 650 mg, Enteral Tube, EVERY 4 HOURS PRN, Fever, Mild Pain, Starting on Sun01/29/24 at 1500, Until Sun02/15/24 at 1849, Patient preference for lesser PRN pain meds [...] patient cannot tolerate oral intake $ Given 02/12/2024 6:00 AM CDT 650 mg G Tube $ Given 02/12/2024 12:00 AM CDT 650 mg G Tube $ Given 02/07/2024 10:31 PM CDT 650 mg G Tube albuterol (Proventil;Ventolin) (2.5 MG/3ML) 0.083% nebulizer solution 2.5 mg 2.5 mg, Inhalation, EVERY 4 HOURS PRN, Shortness of Breath, Wheezing, Starting on Sun02/12/24 at 1203, Until Sun02/15/24 at 1849 $ Given 02/12/2024 12:13 PM CDT 2.5 mg albuterol-ipratropium (Duo-Neb) nebulizer solution 3 mL 3 mL, Inhalation, EVERY 6 HOURS, First dose on Sun01/24/24 at 1900, Until Discontinued $ Given 02/15/2024 3:17 PM CDT 3 mL $ Given 02/15/2024 8:07 AM CDT 3 mL $ Given 02/15/2024 3:27 AM CDT 3 mL alteplase (Cathflo Activase) injection 2 mg 2 mg, Intravenous, ONCE, 1 dose, On Sun02/07/24 at 1245, Dilute 2 mg vial with 2.2 mL sterile water for final concentration of 1 mg/mL. 1. Instill the dose into the occluded catheter. 2. After 30 minutes of dwell time, assess catheter function by attempting to aspirate blood. 3. If catheter function has been restored, aspirate 4-5 mL of blood in patients weighing over 10 kg, or 3 mL in patients weighing under 10 kg, to remove Cathflo Activase and residual clot, and gently irrigate the catheter with 0.9% Sodium Chloride, SENIOR CARE. Refrigerate $ Given 02/07/2024 1:50 PM CDT 2 mg amLODIPine (Norvasc) tablet 10 mg 10 mg, Enteral Tube, DAILY, First dose on Sun01/27/24 at 1100, Until Discontinued $ Given 02/03/2024 9:08 AM CDT 10 mg G Tub e $ Given 02/02/2024 8:34 AM CDT 10 mg G Tube $ Given 02/01/2024 9:04 AM CDT 10 mg G Tube amLODIPine (Norvasc) tablet 10 mg 10 mg, Enteral Tube, DAILY, First dose (after last modification) on Sun02/12/24 at 0900, Until Discontinued $ Given 02/15/2024 9:25 AM CDT 10 mg G Tube $ Given 02/14/2024 8:22 AM CDT 10 mg G Tube $ Given 02/13/2024 9:09 AM CDT 10 mg G Tube amLODIPine (Norvasc) tablet 5 mg 5 mg, Enteral Tube, DAILY, First dose on Sun02/08/24 at 1145, Until Discontinued $ Given 02/11/2024 8:29 AM CDT 5 mg G Tube $ Given 02/10/2024 9:22 AM CDT 5 mg G Tube $ Given 02/09/2024 8:13 AM CDT 5 mg G Tube amLODIPine (Norvasc) tablet 5 mg 5 mg, Enteral Tube, Once, 1 dose, On Sun02/11/24 at 1045 $ Given 02/11/2024 12:31 PM CDT 5 mg G Tube artificial tears ophthalmic ointment Each Eye, 3 TIMES DAILY, First dose (after last modification) on Sun01/24/24 at 1015, Until Discontinued $ Given 01/25/2024 3:07 PM CDT $ Given 01/25/2024 8:22 AM CDT $ Given 01/24/2024 8:06 PM CDT artificial tears ophthalmic ointment Each Eye, EVERY 8 HOURS, First dose on Sun02/04/24 at 1400, Until Discontinued $ Given 02/08/2024 6:28 AM CDT $ Given 02/07/2024 9:06 PM CDT $ Given 02/07/2024 6:02 AM CDT aspirin chew tablet 81 mg 81 mg, Enteral Tube, DAILY, First dose on Sun01/25/24 at 0900, Until Discontinued $ Given 02/15/2024 9:25 AM CDT 81 mg G Tub e $ Given 02/14/2024 8:25 AM CDT 81 mg G Tube $ Given 02/13/2024 9:10 AM CDT 81 mg G Tube aspirin tablet 325 mg 325 mg, Enteral Tube, DAILY, First dose (after last modification) on Sun01/24/24 at 0900, Until Discontinued, May give aspirin PO or UT $ Given 01/24/2024 8:01 AM CDT 325 mg OG Tube atorvastatin (Lipitor) tablet 40 mg 40 mg, Enteral Tube, AT BEDTIME, First dose (after last modification) on Sun02/07/24 at 2100, Until Discontinued $ Given 02/14/2024 8:54 PM CDT 40 mg NG Tu be $ Given 02/13/2024 8:43 PM CDT 40 mg G Tube $ Given 02/12/2024 8:15 PM CDT 40 mg G Tube atorvastatin (Lipitor) tablet 80 mg 80 mg, Enteral Tube, AT BEDTIME, First dose on Sun01/23/24 at 2100, Until Discontinued $ Given 01/23/2024 8:41 PM CDT 80 mg OG Tu be atorvastatin (Lipitor) tablet 80 mg 80 mg, Enteral Tube, AT BEDTIME, First dose on Sun01/28/24 at 2100, Until Discontinued $ Given 02/06/2024 8:46 PM CDT 80 mg G Tub e $ Given 02/05/2024 10:24 PM CDT 80 mg G Tube $ Given 02/04/2024 8:27 PM CDT 80 mg G Tube atropine 1 % ophthalmic solution 1 drop 1 drop, Sublingual, EVERY 8 HOURS, First dose (after last modification) on Sun02/12/24 at 1400, Until Discontinued $ Given 02/14/2024 5:33 AM CDT 1 drop $ Given 02/13/2024 10:13 PM CDT 1 drop $ Given 02/13/2024 2:09 PM CDT 1 drop atropine 1 % ophthalmic solution 2 drop 2 drop, Sublingual, EVERY 6 HOURS PRN, oral secretions, Starting on Sun02/03/24 at 0947, Until Sun02/12/24 at 0905 $ Given 02/06/2024 4:20 PM CDT 2 drops $ Given 02/05/2024 10:56 AM CDT 2 drops $ Given 02/03/2024 5:29 PM CDT 2 drops bisacodyl (Dulcolax) suppository 10 mg 10 mg, Rectal, DAILY, 3 doses, First dose on Sun01/28/24 at 1100, Last dose on Sun01/30/24 at 0900 $ Given 01/30/2024 9:00 AM CDT 10 mg $ Given 01/28/2024 12:05 PM CDT 10 mg bisacodyl (Dulcolax) suppository 10 mg 10 mg, Rectal, ONCE, 1 dose, On 02/02/24 at 1300 $ Given 02/02/2024 1:40 PM CDT 10 mg calcium gluconate 2 g in 100 mL NaCl 0.675% 2 g, at 100 mL/hr, Intravenous, ONCE, 1 dose, On [place] 01/24/24 at 0600 Current Rate 01/24/2024 7:00 AM CDT 100 mL/hr $ New Bag/Syringe 01/24/2024 6:11 AM CDT 2 g 100 mL /hr ceFAZolin (Ancef) 2 g in 0.9% NaCl IV 50 mL IVPB 2 g, at 100 mL/hr, Intravenous, EVERY 8 HOURS, 14 doses, First dose on Sun02/08/24 at 1015, Last dose on Sun02/12/24 at 1815, Indication for anti-infective therapy: Documented infection, Site of anti-infective therapy: Lower Respiratory $ New Bag/Syringe 02/12/2024 6:04 PM CDT 2 g 100 mL/hr $ New Bag/Syringe 02/12/2024 10:17 AM CDT 2 g 100 m L/hr $ New Bag/Syringe 02/12/2024 2:12 AM CDT 2 g 100 mL /hr cefepime (Maxipime) 2,000 mg in 0.9% NaCl IV 50 mL IVPB 2,000 mg (2 g), at 100 mL/hr, Intravenous, EVERY 8 HOURS, First dose on Sun02/06/24 at 1115, Until Discontinued, Indication for anti-infective therapy: Suspected infection, Site of anti-infective therapy: Lower Respiratory $ New Bag/Syringe 02/08/2024 3:35 AM CDT 2,000 mg 100 mL/hr $ New Bag/Syringe 02/07/2024 5:57 PM CDT 2,000 mg 100 mL /hr $ New Bag/Syringe 02/07/2024 12:22 PM CDT 2,000 mg 100 m L/hr cefTRIAXone (Rocephin) 2,000 mg in 0.9% NaCl IV 50 mL IVPB 2,000 mg (2 g), at 100 mL/hr, Intravenous, EVERY 24 HOURS, First dose on Sun01/24/24 at 0945, Until Discontinued, Ceftriaxone can cause precipitation when administered with calcium-containing fluids, including LR. Flush lines with a compatible fluid, such as D5W or NS before and after ceftriaxone dose. Admin through separate lumens is acceptable., Indication for anti-infective therapy: Suspected infection, Site of anti-infective therapy: Lower Respiratory $ New Bag/Syringe 01/28/2024 10:02 AM CDT 2,000 mg 100 mL/hr $ New Bag/Syringe 01/27/2024 8:59 AM CDT 2,000 mg 100 mL /hr $ New Bag/Syringe 01/26/2024 9:06 AM CDT 2,000 mg 100 mL /hr chlorhexidine (Peridex) 0.12 % oral solution 15 mL 15 mL, Swish and Spit, 2 TIMES DAILY, First dose on Sun01/23/24 at 2100, Until Discontinued, 15 mL oral rinse. Swish for 30 seconds and spit. Do not rinse, brush, or eat immediately after use. . WASTE DISPOSAL INSTRUCTIONS: Black Bin Disposal required. $ Given 01/25/2024 8:24 AM CD T 15 mL $ Given 01/24/2024 8:05 PM CDT 15 mL $ Given 01/24/2024 8:02 AM CDT 15 mL chlorhexidine (Peridex) 0.12 % oral solution 15 mL 15 mL, Mouth/Throat, 2 TIMES DAILY, First dose on Sun02/04/24 at 1115, Until Discontinued, 15 mL oral rinse. Swish for 30 seconds and spit. Do not rinse, brush, or eat immediately after use. . WASTE DISPOSAL INSTRUCTIONS: Black Bin Disposal required. $ Given 02/11/2024 8:36 PM CDT 15 mL $ Given 02/11/2024 8:28 AM CDT 15 mL $ Given 02/10/2024 10:01 PM CDT 15 mL chlorothiazide (Diuril) 500 mg in 0.9% NaCl IV 50 mL IVPB 500 mg, at 100 mL/hr, Intravenous, ONCE, 1 dose, On Sun01/25/24 at 1030 $ New Bag/Syringe 01/25/2024 10:38 AM CDT 500 mg 100 mL/hr clopidogrel (plaVIX) tablet 75 mg 75 mg, Enteral Tube, DAILY, First dose on [place] 01/24/24 at 1600, Until Discontinued $ Given 01/29/2024 8:00 AM CDT 75 mg NG Tube $ Given 01/28/2024 8:32 AM CDT 75 mg NG Tube $ Given 01/27/2024 8:47 AM CDT 75 mg NG Tube clopidogrel (plaVIX) tablet 75 mg 75 mg, Enteral Tube, DAILY, First dose (after last modification) on Sun01/31/24 at 0900, Until Discontinued $ Given 02/15/2024 9:25 AM CDT 75 mg G Tube $ Given 02/14/2024 8:22 AM CDT 75 mg G Tube $ Given 02/13/2024 9:10 AM CDT 75 mg G Tube dextrose 10 % IV bolus 12.5 g, at 468.75 mL/hr, Intravenous, PRN, Other, Bedside Glucose less than 70 mg/dL -If NOT able to eat and/or NPO and with IV Access, Starting on Sun01/23/24 at 1852, Until Sun02/15/24 at 1849, If NOT able to eat and/or NPO and with IV Access: For Bedside Glucose 54-69 mg/dL give 12.5 g Dextrose IV STAT For Bedside Glucose LESS than 54 mg/dl verify with a second Bedside Glucose (from a different site) and give 25 g Dextrose IV STAT Re-check and Re-treat blood glucose EVERY , 10-25 minutes until blood glucose GREATER than or equal to 80 mg/dl. NOTIFY PROVIDER OF HYPOGLYCEMIC EVENT. dextrose 10 % IV bolus 25 g, at 937.5 mL/hr, Intravenous, PRN, Other, Bedside Glucose less than 70 mg/dL -If NOT able to eat and/or NPO and with IV Access, Starting on Sun01/23/24 at 1852, Until Sun02/15/24 at 1849, If NOT able to eat and/or NPO and with IV Access: For Bedside Glucose 54-69 mg/dL - give 12.5 g Dextrose IV STAT For Bedside Glucose LESS than 54 mg/dl - verify with a second Bedside Glucose (from a different site) and give 25 g Dextrose IV STAT Re-check and Re-treat blood glucose EVERY - 10-25 minutes until blood glucose GREATER than or equal to 80 mg/dl. - If repeat bedside glucose 54-79 give 12.5 g Dextrose IV STAT NOTIFY PROVIDER OF HYPOGLYCEMIC EVENT. DOPamine 1600 mcg/mL infusion ADS Med 1 dose, Starting on Sun01/23/24 at 1312, Until Sun01/23/24 at 1320, Created by cabinet override DOPamine 1600 mcg/mL infusion 0-20 mcg/kg/min ? 136.1 kg (0-102.075 mL/hr, rounded to 0-102.08 mL/hr), Intravenous, CONTINUOUS, Starting on Sun01/23/24 at 1345, Until [place] 01/24/24 at 0011, Central line required if infused longer than 48 hours or infusing multiple vasopressors, Titration Parameters: Standard Parameters, Indication: Hypotension, Titrate every: 1 minute, To maintain a: MAP greater than or equal to 65 mmHg, Notify physician if: MAP less than 65 mmHg despite max dose, Initiate infusion at: 5 mcg/kg/min, Titrate infusion by: 1 mcg/kg/min Rate Change 01/23/2024 10:15 PM CDT 4 mcg/kg/min 20.42 mL/hr Rate Change 01/23/2024 9:50 PM CDT 5 mcg/kg/min 25.52 mL/h r Rate Change 01/23/2024 9:45 PM CDT 11 mcg/kg/min 56.14 mL/ hr etomidate (Amidate) injection 20 mg 20 mg, Intravenous, NOW, 1 dose, On 01/23/24 at 1145 $ Given 01/23/2024 11:39 AM CDT 20 mg etomidate (Amidate) injection 20 mg 20 mg, Intravenous, ONCE, 1 dose, On 02/02/24 at 1530 $ Given 02/02/2024 3:04 PM CDT 20 mg famotidine (Pepcid) tablet 20 mg 20 mg, Enteral Tube, 2 TIMES DAILY, First dose on Sun02/04/24 at 1115, Until Discontinued $ Given 02/15/2024 9:25 AM CDT 20 mg G Tube $ Given 02/14/2024 8:55 PM CDT 20 mg NG Tube $ Given 02/14/2024 8:25 AM CDT 20 mg G Tube fentaNYL (PF) (Sublimaze) injection 100 mcg 100 mcg, Intravenous, ONCE, 1 dose, On Sun01/23/24 at 1215, Patient preference for lesser PRN pain meds [...] patient cannot tolerate oral intake $ Given 01/23/2024 1:00 PM CDT 100 mcg fentaNYL (PF) (Sublimaze) injection 25 mcg 25 mcg, Intravenous, ONCE, 1 dose, On Sun02/10/24 at 1115, Patient preference for lesser PRN pain meds [...] patient cannot tolerate oral intake $ Given 02/10/2024 11:00 AM CDT 25 mcg fentaNYL (Sublimaze) bolus from infusion bag 50 mcg 50 mcg, Intravenous, BOLUS FROM BAG PRN, CPOT goal, Starting on Sun01/23/24 at 1132, Until Sun01/23/24 at 1852, Bolus from bag every 5 minutes to reach CPOT goal. Can give bolus before anticipated painful stimuli. Contact physician if unable to achieve CPOT goal after administering 4 boluses. If a sedative is ordered, titrate/administer opioid first to achieve CPOT goal, followed by titration/administration of sedative to achieve RASS goal. Bolus From Bag 01/23/2024 4:30 PM CDT 50 mcg Bolus From Bag 01/23/2024 3:22 PM CDT 50 mcg Bolus From Bag 01/23/2024 2:11 PM CDT 50 mcg fentaNYL (Sublimaze) bolus from infusion bag 50 mcg 50 mcg, Intravenous, BOLUS FROM BAG PRN, CPOT goal, Starting on Sun01/23/24 at 1957, Until Sun01/25/24 at 0623, Bolus from bag every 5 minutes to reach CPOT goal. Can give bolus before anticipated painful stimuli. Contact physician if unable to achieve CPOT goal after administering 4 boluses. If a sedative is ordered, titrate/administer opioid first to achieve CPOT goal, followed by titration/administration of sedative to achieve RASS goal. Bolus From Bag 01/24/2024 6:30 PM CDT 50 mcg Bolus From Bag 01/24/2024 4:48 PM CDT 50 mcg fentaNYL 2500 mcg/50mL infusion 0-200 mcg/hr (0-4 mL/hr), Intravenous, CONTINUOUS, Starting on Sun01/23/24 at 1215, Until Sun01/23/24 at 1852, Above CPOT goal: bolus every 5 minutes until goal CPOT then increase rate per order. Can give bolus before anticipated painful stimuli. Contact physician if unable to achieve CPOT goal after administering 4 boluses. At CPOT goal and no change in 4 hours: Decrease rate per order If significant hemodynamic changes, notify physician for instructions. Notify physician for inability to reach goals despite maximal dosage. If a sedative is ordered, titrate/administer opioid first to achieve CPOT goal, followed by titration/administration of sedative to achieve RASS goal., Titration Parameters: Analgesia, Indication: Analgesia, Initiate infusion at: 25 mcg/hr, Titrate infusion by: 25 mcg/hr, Titrate every: 5 minutes, Notify physician if: Unachievable CPOT goal despite max dose Current Rate 01/23/2024 5:00 PM CDT 50 mcg/hr 1 mL/hr Restarted 01/23/2024 2:15 PM CDT 50 mcg/hr 1 mL/hr $ New Bag/Syringe 01/23/2024 12:13 PM CDT 100 mcg/hr 2 mL/ hr fentaNYL 2500 mcg/50mL infusion 0-200 mcg/hr (0-4 mL/hr), Intravenous, CONTINUOUS, Starting on Sun01/23/24 at 2030, Until Sun01/23/24 at 203, Above CPOT goal: bolus every 5 minutes until goal CPOT then increase rate per order. Can give bolus before anticipated painful stimuli. Contact physician if unable to achieve CPOT goal after administering 4 boluses. At CPOT goal and no change in 4 hours: Decrease rate per order If significant hemodynamic changes, notify physician for instructions. Notify physician for inability to reach goals despite maximal dosage. If a sedative is ordered, titrate/administer opioid first to achieve CPOT goal, followed by titration/administration of sedative to achieve RASS goal., Titration Parameters: Analgesia, Indication: Analgesia, Initiate infusion at: 25 mcg/hr, Titrate infusion by: 25 mcg/hr, Titrate every: 5 minutes, Notify physician if: Unachievable CPOT goal despite max dose *Current Bag - New Order 01/23/2024 8:11 PM CDT 50 mcg/hr 1 mL/hr fentaNYL 2500 mcg/50mL infusion 50 mcg/hr (1 mL/hr), Intravenous, CONTINUOUS, Starting on Sun01/23/24 at 2045, Until Sun01/25/24 at 0623, Above CPOT goal: bolus every 5 minutes until goal CPOT then increase rate per order. Can give bolus before anticipated painful stimuli. Contact physician if unable to achieve CPOT goal after administering 4 boluses. At CPOT goal and no change in 4 hours: Decrease rate per order If significant hemodynamic changes, notify physician for instructions. Notify physician for inability to reach goals despite maximal dosage. If a sedative is ordered, titrate/administer opioid first to achieve CPOT goal, followed by titration/administration of sedative to achieve RASS goal., Titration Parameters: Fixed, Indication: Sedation, Analgesia, Initiate infusion at: 50 mcg/hr, Titrate to: Do not titrate. Physician order required for rate change., Notify physician if: Unachievable CPOT goal despite max dose Current Rate 01/25/2024 6:15 AM CDT 50 mcg/hr 1 mL/hr Current Rate 01/25/2024 2:51 AM CDT 50 mcg/hr 1 mL/hr Rate Change 01/24/2024 11:53 PM CDT 50 mcg/hr 1 mL/hr fentaNYL 2500 mcg/50mL infusion 100 mcg/hr (2 mL/hr), Intravenous, CONTINUOUS, Starting on Sun02/05/24 at 0800, Until Sun02/05/24 at 1159, Above CPOT goal: bolus every 5 minutes until goal CPOT then increase rate per order. Can give bolus before anticipated painful stimuli. Contact physician if unable to achieve CPOT goal after administering 4 boluses. At CPOT goal and no change in 4 hours: Decrease rate per order If significant hemodynamic changes, notify physician for instructions. Notify physician for inability to reach goals despite maximal dosage. If a sedative is ordered, titrate/administer opioid first to achieve CPOT goal, followed by titration/administration of sedative to achieve RASS goal., Titration Parameters: Fixed, Indication: Analgesia, Initiate infusion at: 100 mcg/hr, Titrate to: Do not titrate. Physician order required for rate change., Notify physician if: Unachievable CPOT goal despite max dose Current Rate 02/05/2024 8:36 AM CDT 100 mcg/hr 2 mL/hr Current Rate 02/05/2024 8:21 AM CDT 100 mcg/hr 2 mL/hr Current Rate 02/05/2024 8:19 AM CDT 100 mcg/hr 2 mL/hr folic acid (Folvite) tablet 1 mg 1 mg, Enteral Tube, DAILY, First dose on Sun01/31/24 at 1200, Until Discontinued $ Given 02/15/2024 9:25 AM CDT 1 mg G Tube $ Given 02/14/2024 8:26 AM CDT 1 mg G Tube $ Given 02/13/2024 9:09 AM CDT 1 mg G Tube furosemide (Lasix) injection 20 mg 20 mg, Intravenous, ONCE, 1 dose, On Sun02/13/24 at 1100 $ Given 02/13/2024 11:08 AM CDT 20 mg furosemide (Lasix) injection 40 mg 40 mg, Intravenous, ONCE, 1 dose, On Sun01/24/24 at 1200 $ Given 01/24/2024 11:53 AM CDT 40 mg furosemide (Lasix) injection 40 mg 40 mg, Intravenous, ONCE, 1 dose, On Sun02/12/24 at 0930 $ Given 02/12/2024 10:18 AM CDT 40 mg furosemide (Lasix) injection 40 mg 40 mg, Intravenous, 2 TIMES DAILY, 2 doses, First dose (after last modification) on Sun02/14/24 at 1115, Last dose on Sun02/14/24 at 1700 $ Given 02/14/2024 6:18 PM CDT 40 mg $ Given 02/14/2024 12:10 PM CDT 40 mg furosemide (Lasix) injection 40 mg 40 mg, Intravenous, 2 TIMES DAILY, 2 doses, First dose on Sun02/15/24 at 0900, Last dose on Sun02/15/24 at 1700 $ Given 02/15/2024 5:14 PM CDT 40 mg $ Given 02/15/2024 9:25 AM CDT 40 mg glucagon (Glucagen) injection 1 mg 1 mg, Subcutaneous, PRN, Bedside Glucose less than 70 mg/dL - If NOT able to eat and/or NPO and withOUT IV Access, Starting on Sun01/23/24 at 1852, Until Sun02/15/24 at 1849, If NOT able to eat and/or NPO and NO IV Access: For Bedside glucose 54-69 mg/dL ? - Give 1 mg subcutaneous For Bedside Glucose LESS than 54 mg/dl ? -?verify with a second bedside glucose (from a different site) ? -?Give 1 mg subcutaneous Re-check and Re-treat blood glucose EVERY 10-25 minutes until blood glucose GREATER than or equal to 80 mg/dl.? NOTIFY PROVIDER OF HYPOGLYCEMIC EVENT. Reconstitute vial with 1 mL of sterile water for injection for a final concentration of 1 mg/mL; shake vial gently; use immediately and discard unused portion glycopyrrolate (Robinul) injection 0.1 mg 0.1 mg, Intravenous, ONCE, 1 dose, On Sun02/10/24 at 0930 $ Given 02/10/2024 9:21 AM CDT 0.1 mg glycopyrrolate (Robinul) injection 0.1 mg 0.1 mg, Intravenous, ONCE, 1 dose, On Sun02/12/24 at 0730 $ Given 02/12/2024 7:31 AM CDT 0.1 mg guaiFENesin (Robitussin) solution 10 mL 10 mL, Enteral Tube, EVERY 6 HOURS, First dose on Sun02/10/24 at 1200, Until Discontinued $ Given 02/14/2024 5:32 AM CDT 10 mL NG Tube $ Given 02/13/2024 11:53 PM CDT 10 mL G Tube $ Given 02/13/2024 6:41 PM CDT 10 mL G Tube heparin 1000 units/ml injection ADS Med 1 dose, Starting on Sun01/23/24 at 1330, Until Sun01/23/24 at 1438, Created by cabinet override heparin injection 3,000 Units 3,000 Units, Intravenous, INTRA-PROCEDURE MULTIPLE, Starting on Sun01/23/24 at 1511, Until Sun01/23/24 at 1849 $ Given 01/23/2024 2:38 PM CDT 3,000 Units heparin injection 5,000 Units 5,000 Units, Subcutaneous, 2 TIMES DAILY, First dose on Sun01/25/24 at 0900, Until Discontinued $ Given 02/04/2024 8:27 PM CDT 5,000 Units Abdominal Tissue $ Given 02/04/2024 8:21 AM CDT 5,000 Units A bd Left Lower Quadrant $ Given 02/03/2024 8:27 PM CDT 5,000 Units A bdominal Tissue heparin injection 5,000 Units 5,000 Units, Subcutaneous, 2 TIMES DAILY, First dose (after last modification) on Sun02/05/24 at 2100, Until Discontinued $ Given 02/15/2024 9:25 AM CDT 5,000 Units Abd Left Lower Quadrant $ Given 02/14/2024 8:54 PM CDT 5,000 Units A bdominal Tissue $ Given 02/14/2024 8:29 AM CDT 5,000 Units A bd Left Upper Quadrant heparinized saline 2 units/mL infusion ADS Med 1 dose, Starting on Sun01/23/24 at 1639, Until Sun01/23/24 at 1650, Created by cabinet override heparinized saline 2 units/mL infusion 1,000 mL, Intra-arterial, INTRA-PROCEDURE MULTIPLE, Starting on Sun01/23/24 at 1516, Until Sun01/23/24 at 1849, Intra-procedure (IR) $ Admin. by Other Provider 01/23/2024 4:50 PM CDT 3,000 mL hydrALAZINE (Apresoline) injection 10 mg 10 mg, Intravenous, EVERY 1 HOUR PRN, Hypertension, SBP<180, Starting on Sun01/26/24 at 2112, Until Sun02/15/24 at 1849 $ Given 01/28/2024 2:35 PM CDT 10 mg $ Given 01/28/2024 3:35 AM CDT 10 mg $ Given 01/26/2024 9:24 PM CDT 10 mg Hydrocod Nikhil-Chlorphe Nikhil ER (Tussionex) suspension 5 mL 5 mL, Enteral Tube, EVERY 12 HOURS, First dose on Sun02/12/24 at 0945, Until Discontinued, Shake well before using. $ Given 02/14/2024 8:22 AM CDT 5 mL G Tube $ Given 02/13/2024 8:43 PM CDT 5 mL G Tube $ Given 02/13/2024 9:10 AM CDT 5 mL G Tube insulin aspart (NovoLOG) pen 0-12 Units 0-12 Units, Subcutaneous, EVERY 4 HOURS, First dose on Sun01/23/24 at 2000, Until Discontinued, Standard Dose: Correction Insulin BG (mg/dL) Corrective Action LESS than 70 follow Hypoglycemic guidelines, 70 -140 NO Correction insulin, 141-180 GIVE 2 units of insulin, 181-220 GIVE 4 units of insulin, 221-260 GIVE 6 units of insulin, 261-300 GIVE 8 units of insulin, 301-350 GIVE 10 units of insulin, Greater than 350 GIVE 12 units of insulin and notify physician. DO NOT HOLD if Patient is NPO. If patient has orders for Mealtime insulin combine and give at same time. $ Given 01/25/2024 8:21 AM CDT 4 Units Abdominal Tissue $ Given 01/25/2024 4:12 AM CDT 4 Units Ab d Left Upper Quadrant $ Given 01/24/2024 11:22 PM CDT 2 Units A bd Right Lower Quadrant insulin aspart (NovoLOG) pen 0-18 Units 0-18 Units, Subcutaneous, EVERY 4 HOURS, First dose on Sun01/25/24 at 1200, Until Discontinued, High Dose: Correction Insulin BG (mg/dL) Corrective Action LESS than 70 follow Hypoglycemic guidelines 70-140 NO Correction insulin, 141-180 GIVE 3 units of insulin, 181-220 GIVE 6 units of insulin, 221-260 GIVE 9 units of insulin, 261-300 GIVE 12 units of insulin, 301-350 GIVE 15 units of insulin, Greater than 350 GIVE 18 units of insulin and notify physician DO NOT HOLD if Patient is NPO If patient has orders for Mealtime insulin combine and give at same time. $ Given 01/28/2024 8:29 AM CDT 3 Units Abd Left Upper Quadrant $ Given 01/25/2024 4:09 PM CDT 3 Units Ab dominal Tissue $ Given 01/25/2024 11:49 AM CDT 3 Units A bdominal Tissue insulin aspart (NovoLOG) pen 0-18 Units 0-18 Units, Subcutaneous, EVERY 6 HOURS, First dose (after last modification) on Sun01/28/24 at 1200, Until Discontinued, High Dose: Correction Insulin BG (mg/dL) Corrective Action LESS than 70 follow Hypoglycemic guidelines 70-140 NO Correction insulin, 141-180 GIVE 3 units of insulin, 181-220 GIVE 6 units of insulin, 221-260 GIVE 9 units of insulin, 261-300 GIVE 12 units of insulin, 301-350 GIVE 15 units of insulin, Greater than 350 GIVE 18 units of insulin and notify physician DO NOT HOLD if Patient is NPO If patient has orders for Mealtime insulin combine and give at same time. $ Given 02/15/2024 5:15 PM CDT 6 Units Abd Left Lower Quadrant $ Given 02/15/2024 12:14 PM CDT 6 Units A bd Left Lower Quadrant $ Given 02/15/2024 5:33 AM CDT 3 Units Ab d Right Upper Quadrant insulin NPH pen 10 Units 10 Units, Subcutaneous, EVERY 12 HOURS, First dose (after last modification) on Sun02/06/24 at 2100, Until Discontinued, Obtain current Blood Glucose if necessary . WASTE DISPOSAL INSTRUCTIONS: Black Bin Disposal required. $ Given 02/07/2024 8:15 AM CDT 10 Units Abdominal Tissue $ Given 02/06/2024 9:51 PM CDT 10 Units Ab dominal Tissue insulin NPH pen 15 Units 15 Units, Subcutaneous, EVERY 12 HOURS, First dose (after last modification) on Sun02/07/24 at 2100, Until Discontinued, Obtain current Blood Glucose if necessary . WASTE DISPOSAL INSTRUCTIONS: Black Bin Disposal required. $ Given 02/15/2024 5:14 PM CDT 15 Units Abd Left Lower Quadr ant $ Given 02/15/2024 5:34 AM CDT 15 Units Ab dominal Tissue $ Given 02/14/2024 6:18 PM CDT 15 Units Le ft Arm insulin NPH pen 5 Units 5 Units, Subcutaneous, 2 TIMES DAILY, First dose on Sun02/04/24 at 1115, Until Discontinued, Obtain current Blood Glucose if necessary . WASTE DISPOSAL INSTRUCTIONS: Black Bin Disposal required. $ Given 02/04/2024 8:28 PM CDT 5 Units Abdominal Tissue $ Given 02/04/2024 11:43 AM CDT 5 Units A bd Left Lower Quadrant insulin NPH pen 5 Units 5 Units, Subcutaneous, EVERY 12 HOURS, First dose on Sun02/05/24 at 1015, Until Discontinued, Obtain current Blood Glucose if necessary . WASTE DISPOSAL INSTRUCTIONS: Black Bin Disposal required. $ Given 02/06/2024 9:38 AM CDT 5 Units Right Arm $ Given 02/05/2024 10:25 PM CDT 5 Units A bdominal Tissue $ Given 02/05/2024 10:55 AM CDT 5 Units A bdominal Tissue insulin NPH pen 5 Units 5 Units, Subcutaneous, ONCE, 1 dose, On Sun02/06/24 at 1100, Obtain current Blood Glucose if necessary . WASTE DISPOSAL INSTRUCTIONS: Black Bin Disposal required. $ Given 02/06/2024 11:30 AM CDT 5 Units Left Arm iopamidol (Isovue 370) 76 % contrast Intravenous, CONTRAST ONCE, Starting on Sun01/23/24 at 1058, Until Sun01/24/24 at 0738 $ Given - Contrast 01/23/2024 10:58 AM CDT 80 mL Left Arm iopamidol (Isovue 370) 76 % contrast Intra-arterial, INTRA-PROCEDURE MULTIPLE, Starting on Sun01/23/24 at 1516, Until Sun01/23/24 at 1849, Intra/Post-procedure $ Given - Contrast 01/23/2024 4:50 PM CDT 100 mL lansoprazole (Prevacid) suspension 30 mg 30 mg, Enteral Tube, DAILY, First dose on Sun01/23/24 at 1930, Until Discontinued, Refrigerate. Shake well before using. $ Given 01/25/2024 8:23 AM CDT 30 mg OG Tube $ Given 01/24/2024 8:02 AM CDT 30 mg OG Tube $ Given 01/23/2024 8:41 PM CDT 30 mg OG Tube levETIRAcetam (Keppra) injection 1,000 mg 1,000 mg, Intravenous, EVERY 12 HOURS, First dose on Sun01/27/24 at 1330, Until Discontinued, Administer straight drug (undiluted) over two minutes $ Given 01/28/2024 8:35 AM CDT 1,000 mg $ Given 01/27/2024 8:09 PM CDT 1,000 mg $ Given 01/27/2024 2:40 PM CDT 1,000 mg levETIRAcetam (Keppra) tablet 250 mg 250 mg, Enteral Tube, 2 TIMES DAILY, First dose (after last modification) on Lore[place] 02/07/24 at 2100, Until Discontinued, Do not crush or chew because of TASTE only. $ Given 02/08/2024 9:34 AM CDT 250 mg G Tube $ Given 02/07/2024 9:05 PM CDT 250 mg G Tube levETIRAcetam (Keppra) tablet 500 mg 500 mg, Enteral Tube, 2 TIMES DAILY, First dose (after last modification) on 01/28/24 at 2100, Until Discontinued, Do not crush or chew because of TASTE only. $ Given 02/07/2024 8:14 AM CDT 500 mg G Tube $ Given 02/06/2024 8:46 PM CDT 500 mg G Tube $ Given 02/06/2024 9:36 AM CDT 500 mg G Tube lidocaine (Xylocaine PF) 1% injection ADS Med 1 dose, Starting on Sun01/23/24 at 1330, Until Sun01/23/24 at 1344, Created by cabinet override lidocaine PF (Xylocaine MPF) 1 % injection Infiltration, INTRA-PROCEDURE MULTIPLE, Starting on Sun01/23/24 at 1516, Until Sun01/23/24 at 1849, Intra-procedure (IR) $ Admin. by Other Provider 01/23/2024 1:44 PM CDT 100 mg losartan (Cozaar) tablet 50 mg 50 mg, Enteral Tube, AT BEDTIME, First dose on Sun01/27/24 at 0030, Until Discontinued $ Given 02/02/2024 8:09 PM CDT 50 mg G Tube $ Given 02/01/2024 8:36 PM CDT 50 mg G Tube $ Given 01/31/2024 8:43 PM CDT 50 mg G Tube magnesium sulfate 2 g in 50 mL bolus 2 g, at 25 mL/hr, Administer over 120 Minutes, Intravenous, ONCE, 1 dose, On [place] 01/24/24 at 0600, Infuse at 1 gm/hr Current Rate 01/24/2024 8:00 AM CDT 25 mL/hr Current Rate 01/24/2024 7:00 AM CDT 25 mL/hr $ New Bag/Syringe 01/24/2024 6:09 AM CDT 2 g 25 mL/ hr magnesium sulfate 2 g in 50 mL bolus 2 g, at 25 mL/hr, Administer over 120 Minutes, Intravenous, ONCE, 1 dose, On 01/26/24 at 0600, Infuse at 1 gm/hr $ New Bag/Syringe 01/26/2024 6:36 AM CDT 2 g 25 mL/hr magnesium sulfate 2 g in 50 mL bolus 2 g, at 25 mL/hr, Administer over 120 Minutes, Intravenous, ONCE, 1 dose, On [place] 01/31/24 at 1500, Infuse at 1 gm/hr $ New Bag/Syringe 01/31/2024 4:38 PM CDT 2 g 25 mL/hr magnesium sulfate 2 g in 50 mL bolus 2 g, at 25 mL/hr, Administer over 120 Minutes, Intravenous, ONCE, 1 dose, On Sun02/09/24 at 0815, Infuse at 1 gm/hr $ New Bag/Syringe 02/09/2024 7:58 AM CDT 2 g 25 mL/hr magnesium sulfate 2 g in 50 mL bolus 2 g, at 25 mL/hr, Administer over 120 Minutes, Intravenous, ONCE, 1 dose, On Sun02/10/24 at 0900, Infuse at 1 gm/hr $ New Bag/Syringe 02/10/2024 10:35 AM CDT 2 g 25 mL/hr magnesium sulfate 2 g in 50 mL bolus 2 g, at 25 mL/hr, Administer over 120 Minutes, Intravenous, ONCE, 1 dose, On Sun02/11/24 at 1045, Infuse at 1 gm/hr $ New Bag/Syringe 02/11/2024 12:26 PM CDT 2 g 25 mL/hr magnesium sulfate 2 g in 50 mL bolus 2 g, at 25 mL/hr, Administer over 120 Minutes, Intravenous, ONCE, 1 dose, On Sun02/12/24 at 0930, Infuse at 1 gm/hr $ New Bag/Syringe 02/12/2024 10:30 AM CDT 2 g 25 mL/hr magnesium sulfate 2 g in 50 mL bolus 2 g, at 25 mL/hr, Administer over 120 Minutes, Intravenous, ONCE, 1 dose, On [place] 02/14/24 at 0600, Infuse at 1 gm/hr $ New Bag/Syringe 02/14/2024 5:52 AM CDT 2 g 25 mL/hr magnesium sulfate 2 g in 50 mL bolus 2 g, at 25 mL/hr, Administer over 120 Minutes, Intravenous, ONCE, 1 dose, On Sun02/15/24 at 0845, Infuse at 1 gm/hr $ New Bag/Syringe 02/15/2024 9:23 AM CDT 2 g 25 mL/hr magnesium sulfate 4 g in 100 mL bolus 4 g, at 25 mL/hr, Administer over 240 Minutes, Intravenous, ONCE, 1 dose, On Sun01/24/24 at 1615, Infuse at 1 gm/hr Current Rate 01/24/2024 6:30 PM CDT 25 m L/hr $ New Bag/Syringe 01/24/2024 4:14 PM CDT 4 g 25 mL/ hr magnesium sulfate 4 g in 100 mL bolus 4 g, at 25 mL/hr, Administer over 240 Minutes, Intravenous, ONCE, 1 dose, On Sun01/27/24 at 0715, Infuse at 1 gm/hr $ New Bag/Syringe 01/27/2024 8:56 AM CDT 4 g 25 mL/hr magnesium sulfate 4 g in 100 mL bolus 4 g, at 25 mL/hr, Administer over 240 Minutes, Intravenous, ONCE, 1 dose, On Sun02/02/24 at 1300, Infuse at 1 gm/hr $ New Bag/Syringe 02/02/2024 12:57 PM CDT 4 g 25 mL/hr metOLazone (Zaroxolyn) tablet 5 mg 5 mg, Enteral Tube, ONCE, 1 dose, On Sun02/14/24 at 1045 $ Given 02/14/2024 11:35 AM CDT 5 mg G Tube metOLazone (Zaroxolyn) tablet 5 mg 5 mg, Enteral Tube, ONCE, 1 dose, On Sun02/15/24 at 0845 $ Given 02/15/2024 9:25 AM CDT 5 mg G Tube metroNIDAZOLE (Flagyl) 500 mg in 100 mL IVPB 500 mg, at 200 mL/hr, Intravenous, EVERY 8 HOURS, 21 doses, First dose on Sun02/06/24 at 1400, Last dose on Sun02/13/24 at 0600, Controlled Room Temperature, Indication for anti-infective therapy: Suspected infection, Site of anti-infective therapy: Lower Respiratory $ New Bag/Syringe 02/07/2024 6:01 AM CDT 500 mg 200 mL/hr $ New Bag/Syringe 02/06/2024 10:06 PM CDT 500 mg 200 m L/hr $ New Bag/Syringe 02/06/2024 4:20 PM CDT 500 mg 200 mL /hr metroNIDAZOLE (Flagyl) tablet 500 mg 500 mg, Enteral Tube, EVERY 8 HOURS, 18 doses, First dose on Sun02/07/24 at 1400, Last dose on Sun02/13/24 at 0600, May take with food or milk., Indication for anti-infective therapy: Suspected infection, Site of anti-infective therapy: Lower Respiratory $ Given 02/08/2024 6:28 AM CDT 500 mg G Tub e $ Given 02/07/2024 10:31 PM CDT 500 mg G Tube $ Given 02/07/2024 3:23 PM CDT 500 mg G Tube midazolam (Versed) 100 mg in 100 mL infusion premix 0-10 mg/hr (0-10 mL/hr), Intravenous, CONTINUOUS, Starting on Sun01/23/24 at 1215, Until Sun01/23/24 at 1849, Above RASS goal: Assess and treat pain first if CPOT greater than 2. Bolus per order until goal RASS and increase rate per order. Contact physician if unable to reach RASS goal after administering 4 boluses. At RASS goal and no change in 4 hrs: Decrease rate per order. Below RASS goal (unarousable): Hold infusion until at goal RASS then restart at 50% previous rate. If significant hemodynamic changes notify physician for instructions. Notify physician for inability to reach goals despite maximal dosage Note: The CPOT goal should be achieved first with the use of the ordered analgesic medication prior to targeting RASS goal with the sedative., Titration Parameters: Standard Parameters, Indication: Sedation, Initiate infusion at: 2 mg/hr, Titrate infusion by: 1 mg/hr, Titrate every: 5 minutes, Notify physician if: Unachievable RASS goal despite max dose, Titration Priority: 1st Current Rate 01/23/2024 5:00 PM CDT 3 mg/hr 3 mL/hr Rate Change 01/23/2024 4:33 PM CDT 3 mg/hr 3 mL/hr Restarted 01/23/2024 2:15 PM CDT 2 mg/hr 2 mL/hr midazolam (Versed) injection 1 mg 1 mg, Intravenous, ONCE, 1 dose, On Sun02/10/24 at 1115 $ Given 02/10/2024 10:59 AM CDT 1 mg midazolam (Versed) injection 4 mg 4 mg, Intravenous, EVERY 2 MINUTES PRN, until goal RASS during tracheostomy, Starting on Sun02/05/24 at 0718, Until Sun02/05/24 at 1117, Indication: Sedation, Contact physician for: requiring IVP more frequently than every hour for 3 consecutive hours $ Given 02/05/2024 8:09 AM CDT 4 mg midazolam (Versed) injection 5 mg 5 mg, Intravenous, ONCE, 1 dose, On Sun01/23/24 at 1200 $ Given 01/23/2024 11:56 AM CDT 5 mg midazolam (Versed) injection 5 mg 5 mg, Intravenous, ONCE PRN, see comment, 1 dose, Starting on Sun01/23/24 at 1157, Until Sun01/23/24 at 1305, Give if needed after giving 5 mg $ Given 01/23/2024 1:05 PM CDT 5 mg midodrine (Proamatine) tablet 10 mg 10 mg, Enteral Tube, EVERY 8 HOURS, First dose on Sun01/25/24 at 1615, Until Discontinued, Do not administer after evening meal or less than 4 hours before bedtime $ Given 01/25/2024 3:59 PM CDT 10 mg OG Tube modafinil (Provigil) tablet 200 mg 200 mg, Enteral Tube, EVERY MORNING, First dose on Sun01/27/24 at 1200, Until Discontinued, Take in morning $ Given 02/15/2024 9:25 AM CDT 200 mg G Tube $ Given 02/14/2024 8:25 AM CDT 200 mg G Tube $ Given 02/13/2024 9:09 AM CDT 200 mg G Tube multiple vitamins with minerals tablet 1 tablet 1 tablet, Enteral Tube, DAILY, First dose on Sun01/31/24 at 1200, Until Discontinued, . WASTE DISPOSAL INSTRUCTIONS: Black Bin Disposal required. $ Given 02/15/2024 9:25 AM CDT 1 tablet G Tub e $ Given 02/14/2024 8:22 AM CDT 1 tablet G Tube $ Given 02/13/2024 9:09 AM CDT 1 tablet G Tube niCARdipine (Cardene) 50 mg in 0.9% NaCl IV 100 mL infusion 0-15 mg/hr (0-30 mL/hr), Intravenous, CONTINUOUS, Starting on 01/27/24 at 0100, Until 02/02/24 at 1311, Nicardipine 0.5 mg/ml via CENTRAL LINE ONLY, Titration Parameters: Standard Parameters, Indication: Hypertension, Initiate infusion at: 2.5 mg/hr, Titrate infusion by: 2.5 mg/hr, Titrate every: 15 minutes, To maintain a: Other - see comments, Notify physician if: SBP greater than - Other - see comments, despite max dose Current Rate 01/27/2024 9:32 AM CDT 2.5 mg/hr 5 mL/hr $ New Bag/Syringe 01/27/2024 1:39 AM CDT 2.5 mg/hr 5 mL/h r nitroGLYCERIN (Nitro-Bid) 2 % ointment 2 inch 2 inch, Topical, 2 times daily (0900 and 1500), First dose on Sun01/23/24 at 1630, Until Discontinued, Wipe off ointment after 6 hours. $ Applied 01/23/2024 4:17 PM CDT 2 inches norepinephrine (Levophed) 8 mg/250 ml D5 infusion premix ADS Med 1 dose, Starting on 02/02/24 at 1456, Until 02/02/24 at 1631, Created by cabinet override Central line required if infused longer than 48 hours or infusing multiple vasopressors norepinephrine (Levophed) 8 mg/250 ml D5 infusion premix 0-0.4 mcg/kg/min ? 136 kg (0-102 mL/hr), Intravenous, CONTINUOUS, Starting on 01/23/24 at 2115, Until 01/26/24 at 1050, Central line required if infused longer than 48 hours or infusing multiple vasopressors, Titration Parameters: Standard Parameters, Indication: Hypotension, Initiate infusion at: 0.05 mcg/kg/min, Titrate infusion by: If current rate 0.01 to 0.1 mcg/kg/min, titrate by 0.01 mcg/kg/min. If current rate 0.11 to 0.3 mcg/kg/min, titrate by 0.02 mcg/kg/min. If current rate 0.31 mcg/kg/min to the max ordered dose, titrate by 0.05 mcg/kg/min., Titrate every: 1 minute, To maintain a: MAP greater than or equal to 65 mmHg, Notify physician if: MAP less than 65 mmHg despite max dose Rate Change 01/25/2024 4:14 PM CDT 0.01 mcg/kg/min 2.55 mL/hr Rate Change 01/25/2024 4:06 PM CDT 0.02 mcg/kg/min 5.1 mL/ hr Rate Change 01/25/2024 4:01 PM CDT 0.03 mcg/kg/min 7.65 mL /hr norepinephrine (Levophed) 8 mg/250 ml D5 infusion premix 0-0.4 mcg/kg/min ? 129 kg (0-96.75 mL/hr), Intravenous, CONTINUOUS, Starting on 02/02/24 at 1715, Until 02/04/24 at 1029, Central line required if infused longer than 48 hours or infusing multiple vasopressors, Titration Parameters: Standard Parameters, Indication: Hypotension, Initiate infusion at: 0.05 mcg/kg/min, Titrate infusion by: If current rate 0.01 to 0.1 mcg/kg/min, titrate by 0.01 mcg/kg/min. If current rate 0.11 to 0.3 mcg/kg/min, titrate by 0.02 mcg/kg/min. If current rate 0.31 mcg/kg/min to the max ordered dose, titrate by 0.05 mcg/kg/min., Titrate every: 1 minute, To maintain a: MAP greater than or equal to 65 mmHg, Notify physician if: MAP less than 65 mmHg despite max dose $ New Bag/Syringe 02/04/2024 6:07 AM CDT 0.01 mcg/kg/min 2.42 mL/hr Rate Change 02/04/2024 6:03 AM CDT 0.01 mcg/kg/min 2.42 mL /hr Rate Change 02/04/2024 4:19 AM CDT 0.02 mcg/kg/min 4.84 mL /hr norepinephrine (Levophed) 8 mg/250 ml D5 infusion premix 0-0.4 mcg/kg/min ? 129.1 kg (0-96.825 mL/hr, rounded to 0-96.83 mL/hr), Intravenous, CONTINUOUS, Starting on Sun02/05/24 at 0800, Until Sun02/05/24 at 0942, Central line required if infused longer than 48 hours or infusing multiple vasopressors, Titration Parameters: Standard Parameters, Indication: Hypotension, Initiate infusion at: 0.05 mcg/kg/min, Titrate infusion by: If current rate 0.01 to 0.1 mcg/kg/min, titrate by 0.01 mcg/kg/min. If current rate 0.11 to 0.3 mcg/kg/min, titrate by 0.02 mcg/kg/min. If current rate 0.31 mcg/kg/min to the max ordered dose, titrate by 0.05 mcg/kg/min., Titrate every: 1 minute, To maintain a: MAP greater than or equal to 65 mmHg, Notify physician if: MAP less than 65 mmHg despite max dose $ New Bag/Syringe 02/05/2024 7:55 AM CDT 0.05 mcg/kg/min 12.1 mL/hr ondansetron (Zofran) injection 4 mg 4 mg, Intravenous, EVERY 4 HOURS PRN, Nausea/Vomiting, Starting on Sun01/24/24 at 1636, Until Sun02/15/24 at 1849, Administer over 2 to 5 minutes. $ Given 01/24/2024 4:44 PM CDT 4 mg perflutren (Definity) injection ADS Med 1 dose, Starting on Sun01/24/24 at 0827, Until Sun01/24/24 at 0931, Created by cabinet override Shake well before using. $ Given 01/24/2024 9:31 AM CDT 0.39 mL polyethylene glycol 3350 (Miralax) packet 17 g 17 g, Enteral Tube, DAILY, First dose on Sun02/04/24 at 1115, Until Discontinued, Mix in 8 ounces of water, juice, soda, coffee or tea prior to administration $ Given 02/07/2024 8:13 AM CDT 17 g G Tube $ Given 02/06/2024 9:36 AM CDT 17 g G Tube $ Given 02/05/2024 10:31 AM CDT 17 g G Tube potassium chloride (Klor-Con) packet 40 mEq 40 mEq, Enteral Tube, ONCE, 1 dose, On [place] 01/24/24 at 1615, DISSOLVE IN 120 ML OF COLD WATER OR JUICE AND DRINK SLOWLY $ Given 01/24/2024 4:14 PM CDT 40 mEq OG Tu be potassium chloride (Klor-Con) packet 40 mEq 40 mEq, Enteral Tube, ONCE, 1 dose, On 01/27/24 at 0715, DISSOLVE IN 120 ML OF COLD WATER OR JUICE AND DRINK SLOWLY $ Given 01/27/2024 8:47 AM CDT 40 mEq NG Tu be potassium chloride (Klor-Con) packet 40 mEq 40 mEq, Enteral Tube, ONCE, 1 dose, On 02/09/24 at 0815, DISSOLVE IN 120 ML OF COLD WATER OR JUICE AND DRINK SLOWLY Mix one packet in at least 4 oz of cold water of beverage of choice. $ Given 02/09/2024 7:58 AM CDT 40 mEq G Tub e potassium chloride (Klor-Con) packet 40 mEq 40 mEq, Enteral Tube, EVERY 4 HOURS, 2 doses, First dose on 02/10/24 at 0915, Last dose on 02/10/24 at 1315, DISSOLVE IN 120 ML OF COLD WATER OR JUICE AND DRINK SLOWLY Mix one packet in at least 4 oz of cold water of beverage of choice. $ Given 02/10/2024 12:45 PM CDT 40 mEq G Tube $ Given 02/10/2024 9:22 AM CDT 40 mEq G Tube potassium chloride (Klor-Con) packet 40 mEq 40 mEq, Enteral Tube, ONCE, 1 dose, On 02/12/24 at 0930, DISSOLVE IN 120 ML OF COLD WATER OR JUICE AND DRINK SLOWLY Mix one packet in at least 4 oz of cold water of beverage of choice. $ Given 02/12/2024 10:21 AM CDT 40 mEq G Tube potassium chloride 20 mEq in 100 mL SW bolus 20 mEq, at 50 mL/hr, Administer over 2 Hours, Intravenous, ONCE, 1 dose, On [place] 01/24/24 at 0030 $ New Bag/Syringe 01/24/2024 12:36 AM CDT 20 mEq 50 mL/hr potassium chloride 40 mEq in 270 mL bolus 40 mEq, at 67.5 mL/hr, Administer over 4 Hours, Intravenous, ONCE, 1 dose, On [place] 01/24/24 at 0600 Current Rate 01/24/2024 8:00 AM CDT 67.5 mL/hr $ New Bag/Syringe 01/24/2024 7:05 AM CDT 40 mEq 67.5 m L/hr potassium chloride 40 mEq in 270 mL bolus 40 mEq, at 67.5 mL/hr, Administer over 4 Hours, Intravenous, EVERY 4 HOURS, 2 doses, First dose on Sun01/25/24 at 0600, Last dose on Sun01/25/24 at 1000 $ New Bag/Syringe 01/25/2024 10:18 AM CDT 40 mEq 67.5 mL/hr Current Rate 01/25/2024 6:46 AM CDT 67.5 mL/hr Current Rate 01/25/2024 6:15 AM CDT 67.5 mL/hr potassium chloride 40 mEq in 270 mL bolus 40 mEq, at 67.5 mL/hr, Administer over 4 Hours, Intravenous, ONCE, 1 dose, On 01/26/24 at 0630 $ New Bag/Syringe 01/26/2024 6:30 AM CDT 40 mEq 67.5 mL/hr prochlorperazine (Compazine) injection 10 mg 10 mg, Intravenous, EVERY 4 HOURS PRN, Nausea/Vomiting, Starting on [place] 01/24/24 at 1636, Until Sun02/15/24 at 1849, If Zofran unavailable/ineffective Max intravenous rate = 5 mg/min $ Given 01/24/2024 6:36 PM CDT 10 mg propofol (Diprivan) 1000 mg in 100 mL infusion ADS Med 1 dose, Starting on Sun01/23/24 at 1757, Until Sun01/23/24 at 1814, Created by cabinet override Vial and Tubing should be changed and/or discarded every 12 hours. propofol (Diprivan) infusion 0-50 mcg/kg/min ? 136 kg (0-40.8 mL/hr), Intravenous, CONTINUOUS, Starting on Sun01/23/24 at 2115, Until Sun01/24/24 at 0935, Above RASS goal: Assess and treat pain first if CPOT greater than 2. If agitation persists increase rate per order. At RASS goal and no change in 4 hours: Decrease rate per order. Below RASS goal (unarousable): Hold infusion until at goal RASS then restart at 50% previous rate. If significant hemodynamic changes notify physician for instructions. Notify physician for inability to reach goals despite maximal dosage. Note: The CPOT goal should be achieved first with the use of the ordered analgesic medication prior to targeting RASS goal with the sedative. Vial and Tubing should be changed and/or discarded every 12 hours., Titration Parameters: Standard Parameters, Indication: Sedation, Initiate infusion at: 5 mcg/kg/min, Titrate infusion by: 5 mcg/kg/min, Titrate every: 2 minutes, Notify physician if: Unachievable RASS goal despite max dose, Titration Priority: 1st Current Rate 01/24/2024 8:00 AM CDT 15 mcg/kg/min 12.24 mL/hr Rate Change 01/24/2024 7:06 AM CDT 15 mcg/kg/min 12.24 mL/ hr Current Rate 01/24/2024 7:00 AM CDT 20 mcg/kg/min 16.32 mL /hr propofol (Diprivan) infusion 0-50 mcg/kg/min ? 129 kg (0-38.7 mL/hr), Intravenous, CONTINUOUS, Starting on 02/02/24 at 1600, Until 02/06/24 at 1043, Above RASS goal: Assess and treat pain first if CPOT greater than 2. If agitation persists increase rate per order. At RASS goal and no change in 4 hours: Decrease rate per order. Below RASS goal (unarousable): Hold infusion until at goal RASS then restart at 50% previous rate. If significant hemodynamic changes notify physician for instructions. Notify physician for inability to reach goals despite maximal dosage. Note: The CPOT goal should be achieved first with the use of the ordered analgesic medication prior to targeting RASS goal with the sedative. Vial and Tubing should be changed and/or discarded every 12 hours., Titration Parameters: Custom Parameters, Indication: Sedation, Initiate infusion at: 50 mcg/kg/min, Titrate infusion by: 5 mcg/kg/min, Titrate every: 2 minutes, Notify physician if: Unachievable RASS goal despite max dose, Titration Priority: 1st $ New Bag/Syringe 02/05/2024 3:27 PM CDT 5 mcg/kg/min 3.87 mL/hr Rate Change 02/05/2024 11:49 AM CDT 15 mcg/kg/min 5 mL/hr Rate Change 02/05/2024 11:00 AM CDT 15 mcg/kg/min 11.61 mL /hr propofol (Diprivan) injection 10 mcg/kg/min ? 136.1 kg (8.166 mL/hr, rounded to 8.17 mL/hr), Intravenous, CONTINUOUS, Starting on Sun01/23/24 at 1415, Until Sun01/23/24 at 2041 Current Rate 01/23/2024 7:00 PM CDT 50 mcg/kg/min 40.83 mL/hr $ New Bag/Syringe 01/23/2024 6:14 PM CDT 50 mcg/kg/min 40. 83 mL/hr Current Rate 01/23/2024 5:00 PM CDT 50 mcg/kg/min 40.83 mL /hr propofol (Diprivan) injection 50 mcg/kg/min ? 129 kg (38.7 mL/hr), Intravenous, CONTINUOUS, Starting on 02/02/24 at 1545, Until 02/02/24 at 1525 $ New Bag/Syringe 02/02/2024 3:09 PM CDT 50 mcg/kg/min rocuronium (Zemuron) injection 100 mg 100 mg, Intravenous, ONCE, 1 dose, On Sun01/23/24 at 1200 $ Given 01/23/2024 11:39 AM CDT 100 mg rocuronium (Zemuron) injection 100 mg 100 mg, Intravenous, ONCE, 1 dose, On Tu02/05/24 at 0745 $ Given 02/05/2024 8:09 AM CDT 100 mg rocuronium (Zemuron) injection 50 mg 50 mg, Intravenous, ONCE, 1 dose, On 02/02/24 at 1530 $ Given 02/02/2024 3:04 PM CDT 50 mg scopolamine (Transderm-Scop) 1 patch 1 patch, Administer over 72 Hours, EVERY 72 HOURS, First dose on [place] 02/14/24 at 0345, Until Discontinued, Apply patch behind the ear, do not cut patch, only 1 patch should be worn at a time and remove old patch before applying new patch.This patch may contain metal and is not compatible with MRI. Notify radiology of patch location upon arrival to MRI. Each patch contains 1.5 mg scopolamine base and is formulated to deliver 1 mg of scopolamine over 72 hours. $ Applied 02/14/2024 4:24 AM CDT 1 patch Behind Right Ear senna-docusate (Senokot-S) tablet 2 tablet 2 tablet, Enteral Tube, 2 TIMES DAILY, First dose on Sun01/23/24 at 2100, Until Discontinued $ Given 02/08/2024 9:34 AM CDT 2 tablets G Tube $ Given 02/07/2024 9:05 PM CDT 2 tablets G Tube $ Given 02/07/2024 8:13 AM CDT 2 tablets G Tube senna-docusate (Senokot-S) tablet 2 tablet 2 tablet, Enteral Tube, 2 TIMES DAILY, First dose on Sun02/14/24 at 1100, Until Discontinued $ Given 02/15/2024 9:25 AM CDT 2 tablets G Tube $ Given 02/14/2024 8:54 PM CDT 2 tablets NG Tube $ Given 02/14/2024 11:35 AM CDT 2 tablets G Tube sodium chloride 3 % nebulizer solution 3 mL 3 mL, Inhalation, EVERY 6 HOURS, First dose on Sun02/02/24 at 1215, Until Discontinued $ Given 02/10/2024 7:11 AM CDT 3 mL $ Given 02/10/2024 3:48 AM CDT 3 mL $ Given 02/09/2024 9:08 PM CDT 3 mL sodium chloride 3 % nebulizer solution 3 mL 3 mL, Inhalation, EVERY 6 HOURS, First dose on Sun02/12/24 at 1200, Until Discontinued $ Given 02/15/2024 3:17 PM CDT 3 mL $ Given 02/15/2024 8:09 AM CDT 3 mL $ Given 02/15/2024 3:27 AM CDT 3 mL thiamine (Vitamin B-1) tablet 100 mg 100 mg, Enteral Tube, DAILY, First dose on Sun01/31/24 at 1200, Until Discontinued $ Given 02/15/2024 9:25 AM CDT 100 mg G Tub e $ Given 02/14/2024 8:22 AM CDT 100 mg G Tube $ Given 02/13/2024 9:09 AM CDT 100 mg G Tube tirofiban (Aggrastat) 0.05 mg/mL bolus from infusion bag 1,633.2 mcg (12 mcg/kg ? 136.1 kg), Intravenous, BOLUS FROM BAG ONCE, 1 dose, On Sun01/23/24 at 1515, To be administered via infusion pump Prior to administration insert a vented IV set and open the vent. Hang bottle by plastic record changer and adjust flow for appropriate dosing Bolus From Bag 01/23/2024 2:58 PM CDT 1,633.2 mcg tirofiban (Aggrastat) 0.05 mg/mL infusion ADS Med 1 dose, Starting on Sun01/23/24 at 1414, Until Sun01/23/24 at 1528, Created by cabinet override tirofiban (Aggrastat) 0.05 mg/mL infusion 0.1 mcg/kg/min ? 136.1 kg (16.332 mL/hr, rounded to 16.33 mL/hr), Intravenous, CONTINUOUS, Starting on Sun01/23/24 at 1515, Until Loreta 01/24/24 at 1514, To be administered via infusion pump Prior to administration insert a vented IV set and open the vent. Hang bottle by plastic record changer and adjust flow for appropriate dosing. Current Rate 01/24/2024 4:00 PM CDT 0.1 mcg/kg/min 16.33 mL/hr $ New Bag/Syringe 01/24/2024 12:31 PM CDT 0.1 mcg/kg/min 1 6.33 mL/hr Current Rate 01/24/2024 12:00 PM CDT 0.1 mcg/kg/min 16.32 mL/hr vancomycin (Vancocin) 2,500 mg in 550 mL IVPB 2,500 mg, at 220 mL/hr, Intravenous, ONCE, 1 dose, On Sun02/06/24 at 1200, Indication for anti-infective therapy: Suspected infection, Site of anti-infective therapy: Lower Respiratory $ New Bag/Syringe 02/06/2024 12:45 PM CDT 2,500 mg 220 mL/hr documented in this encounter Active and Recently Administered Medications Times are shown in CDT. Scheduled Medication Order 02/13/2024 02/14/2024 02/15/2024 0.9% NaCl injection 3 mL(Linked Group 1) 3 mL, Intracatheter, EVERY 8 HOURS, First dose on Sun01/23/24 at 1400, Until Discontinued, Flush peripheral IV catheter with 3 mL of normal saline every 8 hours. 0555 ($ Given - Provider: Ashish Dai RN)1409 ($ Given - Provider: Vee Botello, ZACHARY)2043 ($ Given - Provider: Rach London RN) 0532 ($ Given - Provider: Rach London RN)1400 ($ Given - Provider: Hamlet Patel RN)2056 ($ Given - Provider: Sylvia Cronin, RN) 0533 ($ Given - Provider: Sylvia Cronin RN)1350 ($ Given - Provider: Rach Alfaro, Gerson Nurse) albuterol-ipratropium (Duo-Neb) nebulizer solution 3 mL 3 mL, Inhalation, EVERY 6 HOURS, First dose on Sun01/24/24 at 1900, Until Discontinued 0330 ($ Given - Provider: Lily Osorio PLASTER WHITTLER)0758 ($ Given - Provider: Sejal Bautista PLASTER WHITTLER)1359 ($ Given - Provider: Sejal Bautista PLASTER WHITTLER)2005 ($ Given - Provider: Andrea Lance PLASTER WHITTLER) 0331 ($ Given - Provider: Andrea Lance PLASTER WHITTLER)0744 ($ Given - Provider: Christi Torres PLASTER WHITTLER)1504 ($ Given - Provider: Christi Torres PLASTER WHITTLER)2017 ($ Given - Provider: Christos Sheikh PLASTER WHITTLER) 0327 ($ Given - Provider: Christos Sheikh PLASTER WHITTLER)0807 ($ Given - Provider: Christi Torres [facility])1517 ($ Given - Provider: Christi Torres PLASTER WHITTLER) amLODIPine (Norvasc) tablet 10 mg 10 mg, Enteral Tube, DAILY, First dose (after last modification) on Sun02/12/24 at 0900, Until Discontinued 09 ($ Given - Provider: Hamlet Patel RN) 0822 ($ Given - Provider: Hamlet Patel RN) 0925 ($ Given - Provider: Rach Alfaro, Gerson Nurse) aspirin chew tablet 81 mg 81 mg, Enteral Tube, DAILY, First dose on Sun01/25/24 at 0900, Until Discontinued 0910 ($ Given - Provider: Hamlet Patel RN) 0825 ($ Given - Provider: Hamlet Patel RN) 0925 ($ Given - Provider: Rach Alfaro, Gerson Nurse) atorvastatin (Lipitor) tablet 40 mg 40 mg, Enteral Tube, AT BEDTIME, First dose (after last modification) on Sun02/07/24 at 2100, Until Discontinued 2042 ($ Given - Provider: Rach London RN) 2053 ($ Given - Provider: Sylvia Cronin RN) atropine 1 % ophthalmic solution 1 drop (CANCELED) 1 drop, Sublingual, EVERY 8 HOURS, First dose (after last modification) on Sun02/12/24 at 1400, Until Discontinued 0554 ($ Given - Provider: Ashish Dai, ZACHARY)1409 ($ Given - Provider: Vee Botello, ZACHARY)2213 ($ Given - Provider: Rach London, ZACHARY) 0533 ($ Given - Provider: Rach London RN) clopidogrel (plaVIX) tablet 75 mg 75 mg, Enteral Tube, DAILY, First dose (after last modification) on Sun01/31/24 at 0900, Until Discontinued 09 ($ Given - Provider: Hamlet Patel RN) 08 ($ Given - Provider: Hamlet Patel RN) 09 ($ Given - Provider: Rach Alfaro, Gerson Nurse) famotidine (Pepcid) tablet 20 mg 20 mg, Enteral Tube, 2 TIMES DAILY, First dose on Sun02/04/24 at 1115, Until Discontinued 09 ($ Given - Provider: Hamlet Patel RN)2042 ($ Given - Provider: Rach London RN) 08 ($ Given - Provider: Hamlet Patel RN)2054 ($ Given - Provider: Sylvia Cronin, ZACHAYR) 09 ($ Given - Provider: Rach Alfaro, Gerson Nurse) folic acid (Folvite) tablet 1 mg 1 mg, Enteral Tube, DAILY, First dose on Sun01/31/24 at 1200, Until Discontinued 09 ($ Given - Provider: Hamlet Patel RN) 08 ($ Given - Provider: Hamlet Patel RN) 09 ($ Given - Provider: Rach Alfaro, Gerson Nurse) furosemide (Lasix) injection 20 mg (COMPLETED) 20 mg, Intravenous, ONCE, 1 dose, On Sun02/13/24 at 1100 1108 ($ Given - Provider: Hamlet Patel RN) furosemide (Lasix) injection 40 mg (COMPLETED) 40 mg, Intravenous, 2 TIMES DAILY, 2 doses, First dose (after last modification) on Sun02/14/24 at 1115, Last dose on Sun02/14/24 at 1700 1210 ($ Given - Provider: Hamlet Patel RN)1818 ($ Given - Provider: Hamlet Patel RN) furosemide (Lasix) injection 40 mg (COMPLETED) 40 mg, Intravenous, 2 TIMES DAILY, 2 doses, First dose on Sun02/15/24 at 0900, Last dose on Sun02/15/24 at 1700 0925 ($ Given - Provider: Rach Alfaro, Graduate Nurse)1714 ($ Given - Provider: Harrison Cuenca RN) guaiFENesin (Robitussin) solution 10 mL (CANCELED) 10 mL, Enteral Tube, EVERY 6 HOURS, First dose on Sun02/10/24 at 1200, Until Discontinued 0557 ($ Given - Provider: Ashish Dai RN)1226 ($ Given - Provider: Hamlet Patel RN)1841 ($ Given - Provider: Hamlet Patel RN)2353 ($ Given - Provider: Rach London, ZACHARY) 0532 ($ Given - Provider: Rach London RN) heparin injection 5,000 Units 5,000 Units, Subcutaneous, 2 TIMES DAILY, First dose (after last modification) on Sun02/05/24 at 2100, Until Discontinued 0920 ($ Given - Provider: Hamlet Patel RN)2042 ($ Given - Provider: Rach London, ZACHARY) 0829 ($ Given - Provider: Hamlet Patel RN)205 ($ Given - Provider: Sylvia Cronin RN) 0925 ($ Given - Provider: Rach Alfaro, Graduate Nurse) Hydrocod Nikhil-Chlorphe Nikhil ER (Tussionex) suspension 5 mL (CANCELED) 5 mL, Enteral Tube, EVERY 12 HOURS, First dose on Sun02/12/24 at 0945, Until Discontinued, Shake well before using. 0910 ($ Given - Provider: Hamlet Patel RN)204 ($ Given - Provider: Rach London RN) 0822 ($ Given - Provider: Hamlet Patel RN) insulin aspart (NovoLOG) pen 0-18 Units 0-18 Units, Subcutaneous, EVERY 6 HOURS, First dose (after last modification) on Sun01/28/24 at 1200, Until Discontinued, High Dose: Correction Insulin BG (mg/dL) Corrective Action LESS than 70 follow Hypoglycemic guidelines 70-140 NO Correction insulin, 141-180 GIVE 3 units of insulin, 181-220 GIVE 6 units of insulin, 221-260 GIVE 9 units of insulin, 261-300 GIVE 12 units of insulin, 301-350 GIVE 15 units of insulin, Greater than 350 GIVE 18 units of insulin and notify physician DO NOT HOLD if Patient is NPO If patient has orders for Mealtime insulin combine and give at same time. 0553 ($ Given - Provider: Ashish Dai RN)1225 ($ Given - Provider: Hamlet Patel RN)1838 ($ Given - Provider: Hamlet Patel RN)2353 ($ Given - Provider: Rach London RN) 0533 ($ Given - Provider: Rach London RN)1224 ($ Given - Provider: Hamlet Patel RN)1823 ($ Given - Provider: Hamlet Patel RN)2357 ($ Given - Provider: Sylvia Cronin, ZACHARY) 0533 ($ Given - Provider: Sylvia Cronin RN)1214 ($ Given - Provider: Rach Alfaro, Graduate Nurse)1715 ($ Given - Provider: Harrison Cuenca, ZACHARY) insulin NPH pen 15 Units 15 Units, Subcutaneous, EVERY 12 HOURS, First dose (after last modification) on Sun02/07/24 at 2100, Until Discontinued, Obtain current Blood Glucose if necessary . WASTE DISPOSAL INSTRUCTIONS: Black Bin Disposal required. 0553 ($ Given - Provider: Ashish Dai RN)1839 ($ Given - Provider: Hamlet Patel RN) 0533 ($ Given - Provider: Rach London RN)1818 ($ Given - Provider: Hamlet Patel RN) 0534 ($ Given - Provider: Sylvia Cronin, ZACHARY)1714 ($ Given - Provider: Harrison Cuenca, ZACHARY) magnesium sulfate 2 g in 50 mL bolus (COMPLETED) 2 g, at 25 mL/hr, Administer over 120 Minutes, Intravenous, ONCE, 1 dose, On Sun02/14/24 at 0600, Infuse at 1 gm/hr 0552 ($ New Bag/Syringe - Provider: Rach London RN)0800 (Stopped - Provider: Hamlet Patel RN) magnesium sulfate 2 g in 50 mL bolus (COMPLETED) 2 g, at 25 mL/hr, Administer over 120 Minutes, Intravenous, ONCE, 1 dose, On Sun02/15/24 at 0845, Infuse at 1 gm/hr 0923 ($ New Bag/Syringe - Provider: Rach Alfaro, Gerson Nurse)1123 (Stopped - Provider: Gerson Freeman Nurse) metOLazone (Zaroxolyn) tablet 5 mg (COMPLETED) 5 mg, Enteral Tube, ONCE, 1 dose, On Sun02/14/24 at 1045 1135 ($ Given - Provider: Hamlet Patel RN) metOLazone (Zaroxolyn) tablet 5 mg (COMPLETED) 5 mg, Enteral Tube, ONCE, 1 dose, On Sun02/15/24 at 0845 0925 ($ Given - Provider: Gerson Freeman Nurse) modafinil (Provigil) tablet 200 mg 200 mg, Enteral Tube, EVERY MORNING, First dose on Sun01/27/24 at 1200, Until Discontinued, Take in morning 0909 ($ Given - Provider: Hamlet Patel RN) 0825 ($ Given - Provider: Hamlet Patel RN) 0925 ($ Given - Provider: Gerson Freeman Nurse) multiple vitamins with minerals tablet 1 tablet 1 tablet, Enteral Tube, DAILY, First dose on Sun01/31/24 at 1200, Until Discontinued, . WASTE DISPOSAL INSTRUCTIONS: Black Bin Disposal required. 0909 ($ Given - Provider: Hamlet Patel RN) 0822 ($ Given - Provider: Hamlet Patel, RN) 0925 ($ Given - Provider: Gerson Freeman Nurse) scopolamine (Transderm-Scop) 1 patch (CANCELED)(Linked Group 2) 1 patch, Administer over 72 Hours, EVERY 72 HOURS, First dose on Sun02/14/24 at 0345, Until Discontinued, Apply patch behind the ear, do not cut patch, only 1 patch should be worn at a time and remove old patch before applying new patch.This patch may contain metal and is not compatible with MRI. Notify radiology of patch location upon arrival to MRI. Each patch contains 1.5 mg scopolamine base and is formulated to deliver 1 mg of scopolamine over 72 hours. 0424 ($ Applied - Provider: Rach London RN)0836 (Removed - Provider: Hamlet Patel RN - Comment: Time automatically adjusted from order being discontinued) senna-docusate (Senokot-S) tablet 2 tablet 2 tablet, Enteral Tube, 2 TIMES DAILY, First dose on Sun02/14/24 at 1100, Until Discontinued 1135 ($ Given - Provider: Hamlet Patel RN)2053 ($ Given - Provider: Sylvia Cronin RN) 09 ($ Given - Provider: Rach Alfaro, Graduate Nurse) sodium chloride 3 % nebulizer solution 3 mL 3 mL, Inhalation, EVERY 6 HOURS, First dose on Sun02/12/24 at 1200, Until Discontinued 0342 ($ Given - Provider: Lily Osorio RCP)0758 ($ Given - Provider: Sejal Bautista PLASTER WHITTLER)1359 ($ Given - Provider: Sejal Bautista PLASTER WHITTLER)2006 ($ Given - Provider: Andrea Lance RCP) 0331 ($ Given - Provider: Andrea Lance RCP)0744 ($ Given - Provider: Christi Torres PLASTER WHITTLER)1504 ($ Given - Provider: Christi Torres PLASTER WHITTLER)2017 ($ Given - Provider: Christos Sheikh RCP) 0327 ($ Given - Provider: Christos Sheikh RCP)0809 ($ Given - Provider: Christi Torres RCP)1517 ($ Given - Provider: Christi Torres RCP) thiamine (Vitamin B-1) tablet 100 mg 100 mg, Enteral Tube, DAILY, First dose on Sun01/31/24 at 1200, Until Discontinued 09 ($ Given - Provider: Hamlet Patel RN) 08 ($ Given - Provider: Hamlet Patel RN) 0925 ($ Given - Provider: Rach Alfaro, Graduate Nurse) PRN Medication Order 02/13/2024 02/14/2024 02/15/2024 0.9% NaCl injection 1-10 mL(Linked Group 1) 1-10 mL, Intracatheter, PRN, Other, peripheral line flush, Starting on Sun01/23/24 at 1032, Until Sun02/15/24 at 184, Flush peripheral IV catheter with 1-10 mL of normal saline before and after medications and prn to clear blood from the line or to verify patency. acetaminophen (Tylenol) tablet 650 mg 650 mg, Enteral Tube, EVERY 4 HOURS PRN, Fever, Mild Pain, Starting on Sun01/29/24 at 1500, Until Sun02/15/24 at 184, Patient preference for lesser PRN pain meds [...] first unless patient cannot tolerate oral intake albuterol (Proventil;Ventolin) (2.5 MG/3ML) 0.083% nebulizer solution 2.5 mg 2.5 mg, Inhalation, EVERY 4 HOURS PRN, Shortness of Breath, Wheezing, Starting on Sun02/12/24 at 1203, Until Sun02/15/24 at 184 dextrose 10 % IV bolus(Linked Group 3) 12.5 g, at 468.75 mL/hr, Intravenous, PRN, Other, Bedside Glucose less than 70 mg/dL -If NOT able to eat and/or NPO and with IV Access, Starting on Sun01/23/24 at 1852, Until Sun02/15/24 at 184, If NOT able to eat and/or NPO and with IV Access: For Bedside Glucose 54-69 mg/dL give 12.5 g Dextrose IV STAT For Bedside Glucose LESS than 54 mg/dl verify with a second Bedside Glucose (from a different site) and give 25 g Dextrose IV STAT Re-check and Re-treat blood glucose EVERY , 10-25 minutes until blood glucose GREATER than or equal to 80 mg/dl. NOTIFY PROVIDER OF HYPOGLYCEMIC EVENT. dextrose 10 % IV bolus(Linked Group 3) 25 g, at 937.5 mL/hr, Intravenous, PRN, Other, Bedside Glucose less than 70 mg/dL -If NOT able to eat and/or NPO and with IV Access, Starting on 01/23/24 at 1852, Until Sun02/15/24 at 1849, If NOT able to eat and/or NPO and with IV Access: For Bedside Glucose 54-69 mg/dL - give 12.5 g Dextrose IV STAT For Bedside Glucose LESS than 54 mg/dl - verify with a second Bedside Glucose (from a different site) and give 25 g Dextrose IV STAT Re-check and Re-treat blood glucose EVERY - 10-25 minutes until blood glucose GREATER than or equal to 80 mg/dl. - If repeat bedside glucose 54-79 give 12.5 g Dextrose IV STAT NOTIFY PROVIDER OF HYPOGLYCEMIC EVENT. glucagon (Glucagen) injection 1 mg(Linked Group 3) 1 mg, Subcutaneous, PRN, Bedside Glucose less than 70 mg/dL - If NOT able to eat and/or NPO and withOUT IV Access, Starting on 01/23/24 at 1852, Until Sun02/15/24 at 184, If NOT able to eat and/or NPO and NO IV Access: For Bedside glucose 54-69 mg/dL ? - Give 1 mg subcutaneous For Bedside Glucose LESS than 54 mg/dl ? -?verify with a second bedside glucose (from a different site) ? -?Give 1 mg subcutaneous Re-check and Re-treat blood glucose EVERY 10-25 minutes until blood glucose GREATER than or equal to 80 mg/dl.? NOTIFY PROVIDER OF HYPOGLYCEMIC EVENT. Reconstitute vial with 1 mL of sterile water for injection for a final concentration of 1 mg/mL; shake vial gently; use immediately and discard unused portion hydrALAZINE (Apresoline) injection 10 mg 10 mg, Intravenous, EVERY 1 HOUR PRN, Hypertension, SBP<180, Starting on 01/26/24 at 2112, Until Sun02/15/24 at 1849 ondansetron (Zofran) injection 4 mg 4 mg, Intravenous, EVERY 4 HOURS PRN, Nausea/Vomiting, Starting on Loreta 01/24/24 at 1636, Until Sun02/15/24 at 1849, Administer over 2 to 5 minutes. prochlorperazine (Compazine) injection 10 mg 10 mg, Intravenous, EVERY 4 HOURS PRN, Nausea/Vomiting, Starting on Sun01/24/24 at 1636, Until Sun02/15/24 at 1849, If Zofran unavailable/ineffective Max intravenous rate = 5 mg/min Linked Groups Order Group 1: SALINE LOCK, INSERT AND MAINTAIN (CANCELED) Routine, CONTINUOUS, Starting on Sun01/23/24 at 1045, Until Specified, New collection, Task Completed: Yes And 0.9% NaCl injection 3 mLJump to med 3 mL, Intracatheter, EVERY 8 HOURS, First dose on Sun01/23/24 at 1400, Until Discontinued, Flush peripheral IV catheter with 3 mL of normal saline every 8 hours. And 0.9% NaCl injection 1-10 mLJump to med 1-10 mL, Intracatheter, PRN, Other, peripheral line flush, Starting on Sun01/23/24 at 1032, Until Sun02/15/24 at 1849, Flush peripheral IV catheter with 1-10 mL of normal saline before and after medications and prn to clear blood from the line or to verify patency. Group 2: scopolamine (Transderm-Scop) 1 patch (CANCELED)Jump to med 1 patch, Administer over 72 Hours, EVERY 72 HOURS, First dose on Sun02/14/24 at 0345, Until Discontinued, Apply patch behind the ear, do not cut patch, only 1 patch should be worn at a time and remove old patch before applying new patch.This patch may contain metal and is not compatible with MRI. Notify radiology of patch location upon arrival to MRI. Each patch contains 1.5 mg scopolamine base and is formulated to deliver 1 mg of scopolamine over 72 hours. And scopolamine patch placement confirmation (CANCELED) Transdermal, 2 TIMES DAILY, First dose on Sun02/14/24 at 0900, Until Discontinued, Patient has a patch to be confirmed on transition to inpatient and 2 times daily. Group 3: dextrose 10 % IV bolusJump to med 12.5 g, at 468.75 mL/hr, Intravenous, PRN, Other, Bedside Glucose less than 70 mg/dL -If NOT able to eat and/or NPO and with IV Access, Starting on Sun01/23/24 at 1852, Until Sun02/15/24 at 1849, If NOT able to eat and/or NPO and with IV Access: For Bedside Glucose 54-69 mg/dL give 12.5 g Dextrose IV STAT For Bedside Glucose LESS than 54 mg/dl verify with a second Bedside Glucose (from a different site) and give 25 g Dextrose IV STAT Re-check and Re-treat blood glucose EVERY , 10-25 minutes until blood glucose GREATER than or equal to 80 mg/dl. NOTIFY PROVIDER OF HYPOGLYCEMIC EVENT. Or dextrose 10 % IV bolusJump to med 25 g, at 937.5 mL/hr, Intravenous, PRN, Other, Bedside Glucose less than 70 mg/dL -If NOT able to eat and/or NPO and with IV Access, Starting on Sun01/23/24 at 1852, Until Sun02/15/24 at 184, If NOT able to eat and/or NPO and with IV Access: For Bedside Glucose 54-69 mg/dL - give 12.5 g Dextrose IV STAT For Bedside Glucose LESS than 54 mg/dl - verify with a second Bedside Glucose (from a different site) and give 25 g Dextrose IV STAT Re-check and Re-treat blood glucose EVERY - 10-25 minutes until blood glucose GREATER than or equal to 80 mg/dl. - If repeat bedside glucose 54- 79 give 12.5 g Dextrose IV STAT NOTIFY PROVIDER OF HYPOGLYCEMIC EVENT. Or glucagon (Glucagen) injection 1 mgJump to med 1 mg, Subcutaneous, PRN, Bedside Glucose less than 70 mg/dL - If NOT able to eat and/or NPO and withOUT IV Access, Starting on Sun01/23/24 at 1852, Until Sun02/15/24 at 184, If NOT able to eat and/or NPO and NO IV Access: For Bedside glucose 54- 69 mg/dL ? - Give 1 mg subcutaneous For Bedside Glucose LESS than 54 mg/dl ? -?verify with a second bedside glucose (from a different site) ? -?Give 1 mg subcutaneous Re-check and Re-treat blood glucose EVERY 10-25 minutes until blood glucose GREATER than or equal to 80 mg/dl.? NOTIFY PROVIDER OF HYPOGLYCEMIC EVENT. Reconstitute vial with 1 mL of sterile water for injection for a final concentration of 1 mg/mL; shake vial gently; use immediately and discard unused portion documented in this encounter Care Teams Industrial Training Specialist Relationship Specialty Start Date End Date Sylvain Daniels MD PCP - General Family Medicine 05/10/22 02/14/24 None, Physician [id number] [place] [address] PCP - General 02/15/24 05/16/24 Sylvain Daniels MD Family Medicine 02/15/24 documented as of this encounter
--- OUTSIDE RECORDS SUMMARY | 2024-10-11 19:43 | XMS_ITS | Encounter Summary ---
Author Organization [facility] Address [address] [place] [address] Care Team Providers Care Eyeglass Inspector Name Role Phone Sylvain Daniels MD Primary Care Provider [phone] Reason for Visit * Auth/Cert (Routine) Specialty Diagnoses / Procedures Referred By Contac t Referred To Contact Referral ID Status Reason Start Date Expiration Date Visits Re quested Visits Authorized [id number] 1 1 Encounter Details Date Type Department Care Team (Late st Contact Info) Description 01/30/2024 2:59 PM CDT Anesthesia Event [facility] [address] [place] [id number] Guy Barraza MD [address] [place] [address] Oscar Lenz APRN-GILBERTO [address] [facility] [address] [place] [address] Anesthesia Record Procedure Summary Procedure Name Responsible Anesthesiologist Anesthesia Start Time Anesthesia Stop Time ESOPHAGOGASTRODUODENOSCOPY ( EGD) WITH PEG PLACEMENT (Abdomen) Guy Barraza MD 01/30/24 1459 01/30/24 15 20 Events Date Time Event Comment 01/30/2024 1338 1459 An Start 1459 Out OR Start Data 1501 PT Reassessment 1503 Stop ABX 1505 Timeout Anesthesia part icipated in timeout at the time documented in the record by nursing. 1520 Electnc Sig This record is electronically signed by the providers listed under staff. 1520 Out OR Stop Data 1520 An Stop Meds Name Total lidocaine 1% (PF) injection (50 mg/5mL) 100 mg ceFAZolin 2 g injection 2 g propofol (DIPRIVAN) injection 10mg/ml (E NDO USE) 12 mL 0.9% NaCl infusion 200 mL * Agents Name Exp. N2O O2 * Blood No blood administrations on file. Lines, Drains, and Airways Type Details Placement Removal Enteral - 01/30/24; 1514; Dr. Ruffin; PEG; Abdomen, Midline, Upper; 20; [id number]; Sedated 01/30/24 1514 by Tarah Rodriguez RN Peripheral IV Date: 01/23/24; Time : 1055; Orientation: Left; Location: Antecubital; Gauge: 18 G 01/23/24 1055 by Juan Pickard RN 02/02/24 1100 by Bianca Emery RN Peripheral IV Date: 01/23/24; Time : 1136; Orientation: Left; Location: Antecubital 01/23/24 1136 by Juan Pickard RN 02/02/24 1059 by Bianca Emery RN External Urinary Catheter 01/27/24; 1000; 01/31/24; 1409 01/27/24 1000 by Ny Altamirano RN 01/31/24 1409 by Hamlet Patel RN documented in this encounter Social History [...] slept in a [facility] (including now)? No 01/24/2024 Education Answer Date [...] as of this encounter Progress Notes * Rachell Torres, GREEN [employer]OMOTIONS SPECIALIST-CIVIL ENGINEERING TEACHER - 01/30/2024 3:25 PM CDT ANESTHESIA POSTOP EVALUATION NOTE Procedure: ESOPHAGOGASTRODUODENOSCOPY (EGD) WITH PEG PLACEMENT (Abdomen) Yaya Vazquez is a 63 year old male Patient Vitals for the past 6 hrs: BP Temp Pulse Resp SpO2 Pain Rating Score #1 Pain Scale/Observation Pulse - (SPO2/Cuff) 01/30/24 0930 -- -- 93 (!) 32 91 % -- -- 93 bpm 01/30/24 0945 -- -- 97 28 (!) 89 % -- -- 97 bpm 01/30/24 1000 154/96 -- 98 22 92 % -- -- 98 bpm 01/30/24 1015 -- -- 92 26 94 % -- -- 91 bpm 01/30/24 1030 -- -- 97 26 90 % -- -- 96 bpm 01/30/24 1045 -- -- 98 27 92 % -- -- 94 bpm 01/30/24 1100 140/93 -- 93 27 92 % -- -- 93 bpm 01/30/24 1115 -- -- 99 20 93 % -- -- 97 bpm 01/30/24 1130 -- -- 92 31 92 % -- -- 92 bpm 01/30/24 1145 -- -- 95 20 92 % -- -- 95 bpm 01/30/24 1200 161/97 98.5 ??F (36.9 ??C) 97 14 90 % 0 N 96 bpm 01/30/24 1206 145/94 -- -- -- -- 0 -- -- 01/30/24 1215 145/94 -- 93 (!) 32 93 % -- -- 91 bpm 01/30/24 1230 141/94 -- 99 16 93 % -- -- 99 bpm 01/30/24 1245 -- -- 99 24 100 % -- -- 99 bpm 01/30/24 1300 129/77 -- 97 (!) 36 100 % -- -- 97 bpm 01/30/24 1328 -- -- -- -- -- 0 F;B -- 01/30/24 1501 (!) 142/101 -- -- -- -- -- -- -- 01/30/24 1505 -- -- -- -- 94 % -- -- -- 01/30/24 1506 157/97 -- -- -- -- -- -- -- 01/30/24 1510 -- -- -- -- 99 % -- -- -- 01/30/24 1512 (!) 187/110 -- -- -- -- -- -- -- 01/30/24 1515 -- -- -- -- 100 % -- -- -- 01/30/24 1517 (!) 230/141 -- -- -- -- -- -- -- 01/30/24 1519 -- -- -- -- 90 % -- -- -- Anesthesia Type: MAC * No Diagnosis Codes entered * Mental Status: awake, alert, oriented and sufficiently recovered from acute administration of anesthesia to participate in the evaluation Neuro Status: No numbness, tingling or visual disturbances Respiratory Function: natural Cardiac Function: stable Postop Pain: acceptable to the patient Postop Hydration: adequate Postop Nausea: none Assessment: no apparent anesthetic complications, patient tolerated procedure well and no evidence of recall Patient Disposition: Release from Anesthesia Care NOTABLE EVENTS: No notable events documented. * Raymond Gillette MD - 01/30/2024 1:35 PM CDT ANESTHESIA PREOPERATIVE EVALUATION NOTE Procedure: ESOPHAGOGASTRODUODENOSCOPY (EGD) WITH PEG PLACEMENT (Abdomen) NPO status: Since Midnight (per RN) (01/30/2024 1:25 PM) Vitals: Patient Vitals for the past 6 hrs: BP Temp Pulse Resp SpO2 Pain Rating Score #1 01/30/24 1328 -- -- -- -- -- 0 01/30/24 1300 129/77 -- 97 (!) 36 100 % -- 01/30/24 1245 -- -- 99 24 100 % -- 01/30/24 1230 141/94 -- 99 16 93 % -- 01/30/24 1215 145/94 -- 93 (!) 32 93 % -- 01/30/24 1206 145/94 -- -- -- -- 0 01/30/24 1200 161/97 98.5 ??F (36.9 ??C) 97 14 90 % 0 01/30/24 1145 -- -- 95 20 92 % -- 01/30/24 1130 -- -- 92 31 92 % -- 01/30/24 1115 -- -- 99 20 93 % -- 01/30/24 1100 140/93 -- 93 27 92 % -- 01/30/24 1045 -- -- 98 27 92 % -- 01/30/24 1030 -- -- 97 26 90 % -- 01/30/24 1015 -- -- 92 26 94 % -- 01/30/24 1000 154/96 -- 98 22 92 % -- 01/30/24 0945 -- -- 97 28 (!) 89 % -- 01/30/24 0930 -- -- 93 (!) 32 91 % -- 01/30/24 0915 -- -- 90 29 93 % -- 01/30/24 0900 160/90 -- 92 (!) 32 92 % -- 01/30/24 0845 -- -- 92 28 94 % -- 01/30/24 0838 165/91 -- -- -- -- -- 01/30/24 0830 -- -- 88 27 93 % -- 01/30/24 0819 -- -- 97 (!) 34 93 % -- 01/30/24 0815 -- -- 96 24 92 % -- 01/30/24 0800 (!) 181/105 98.7 ??F (37.1 ??C) 91 (!) 36 94 % 0 01/30/24 0745 -- -- 102 29 92 % -- LMP: No LMP for male patient. OB Status: unknown ANESTHESIA PRE-EVALUATION NOTE History of Present Illness: Pt Found down at home and admitted with stroke like symptoms, MRI multiple infarcts, basilar arterystenosis, managed by Dr. Garza. Pt with hx of CABG, good cardiac fxn Pt does follow some Commands Physical Exam: No Orientation X3 Mouth Opening Distance: 3 fingerwidths Teeth: normal Heart: regular rate rhythm Abdomen Exam: obese Review of Systems: Sleep Apnea Risk: Yes, Large neck circumference Diagnostic Tests: ECG(s) reviewed: Yes Echo(s) reviewed: Yes. Lab(s) reviewed: Yes. ANESTHESIA PLAN ASA Score: 3 NPO Status: No solids since midnight Anesthesia Plan: MAC Planned Induction: intravenous Planned Postop Destination: endo Anesthetic Plan discussion was: Consented BMI, Height, Weight Tobacco History Estimated body mass index is 32.6 kg/m?? as calculated from the following: Height as of this encounter: 1.93 m (6' 4 ). Weight as of this encounter: 121.5 kg (267 lb 13.7 oz). Social History Tobacco Use Smoking Status Some Days ??? Types: Cigars ??? Start date: 1997 Smokeless Tobacco Never Tobacco Comments 3-4 times / month-2019 says 1x/month Alcohol History Drug History Social History Substance and Sexual Activity Alcohol Use Yes ??? Alcohol/week: 10.0 standard drinks of alcohol ??? Types: 10 Standard drinks or equivalent per week Comment: 0-50+ a week Social History Substance and Sexual Activity Drug Use Yes ??? Types: Marijuana Outpatient Medications: Inpatient Medications: Outpatient Medications Marked as Taking for the 01/23/24 encounter (Hospital Encounter) Medication Sig Last Dose ??? losartan Take 1 (one) tablet by mouth once daily ??? metFORMIN Take 2 (two) tablets by mouth 2 times daily with morning and evening meal ??? metFORMIN Take 1 (one) tablet by mouth once daily for 14 days, THEN 1 (one) tablet 2 times daily with morning and evening meal for 45 days. ??? sildenafil Take 2 (two) tablets to 5 (five) tablets by mouth once daily as needed This medicinecannot be combined with nitroglycerin. Current Facility-Administered Medications Medication Dose Last Admin ??? *Hold/Avoid Medication ??? 0.9% NaCl 3 mL 3 mL at 01/30/24 0628 And ??? 0.9% NaCl 1-10 mL ??? acetaminophen 650 mg ??? albuterol-ipratropium 3 mL 3 mL at 01/30/24 0819 ??? amLODIPine 10 mg 10 mg at 01/30/24 0838 ??? aspirin 81 mg 81 mg at 01/30/24 0902 ??? atorvastatin 80 mg 80 mg at 01/29/242111 ??? atropine ??? bisacodyl 10 mg 10 mg at 01/28/24 1205 ??? clopidogrel 75 mg ??? dextrose IV for hypoglycemia 12.5 g Or ??? dextrose IV for hypoglycemia 25 g Or ??? glucagon 1 mg ??? DOPamine 1.6 mg/mL in dextrose 5 % ??? glycopyrrolate ??? [MAR Hold] heparin 5,000 Units 5,000 Units at 01/29/24 211 ??? hydrALAZINE 10 mg 10 mg at 01/28/24 1435 ??? insulin aspart 0-18 Units 3 Units at 01/30/24 0626 ??? levETIRAcetam 500 mg 500 mg at 01/30/24 0837 ??? losartan 50 mg 50 mg at 01/29/242111 ??? modafinil 200 mg 200 mg at 01/30/24 0838 ??? niCARdipine 0-15 mg/hr Stopped at 01/27/24 1206 ??? nitroGLYCERIN ??? nitroGLYCERIN 50 mg in 250 mL ??? ondansetron 4 mg 4 mg at 01/24/24 1644 ??? prochlorperazine 10 mg 10 mg at 01/24/24 1836 ??? senna-docusate 2 tablet 2 tablet at 01/30/24 0837 ??? verapamil Allergies: Allergies Allergen Reactions ??? Lisinopril Angioedema ??? Pcn [Penicillins] Swelling eyes swelled shut 50 years ago ??? Penicillin V Rash Relevant Problems Problem List: Patient Active Problem List Diagnosis Date Noted ??? Altered mental status, unspecified altered mental status type 01/23/2024 Priority: Not Prioritized ??? Hypoxia 01/23/2024 Priority: Not Prioritized ??? Acute hypoxemic respiratory failure (HCC) 07/26/2022 Priority: Not Prioritized ??? Hyperlipidemia 08/05/2020 Priority: Not Prioritized ??? Morbid obesity with BMI of 40.0-44.9, adult (HCC) 08/05/2020 Priority: Not Prioritized ??? Nocturia 08/05/2020 Priority: Not Prioritized ??? Weight gain 08/05/2020 Priority: Not Prioritized 40# past 6-8 months-covid ??? Asthma ([facility]) Priority: Not Prioritized ??? Other chest pain 09/04/2018 Priority: Not Prioritized ??? S/P CABG x 3 01/24/2018 Priority: Not Prioritized ??? CAD (coronary artery disease) 01/23/2018 Priority: Not Prioritized ??? Essential hypertension 01/23/2018 Priority: Not Prioritized ??? Controlled type 2 diabetes mellitus without complication, without long-term current use of insulin ([facility]) 09/28/2011 Priority: Not Prioritized Medical History: Past Medical History: Diagnosis Date ??? Anemia 01/2018 ??? Asthma ([facility]) ??? Chest congestion 08/05/2020 ??? Confusional arousals 08/05/2020 ??? Controlled type 2 diabetes mellitus without complication, without long-term current use of insulin ([facility]) 09/28/2011 ??? 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 Cough syncope 2017 ??? Daytime sleepiness 08/05/2020 ??? Essential hypertension 01/23/2018 ??? Hyperlipidemia 08/05/2020 ??? Inadequate sleep hygiene 08/05/2020 ??? Morbid obesity with BMI of 40.0-44.9, adult ([facility]) 08/05/2020 ??? Nocturia 08/05/2020 ??? Obesity (BMI 30-39.9) 04/24/2012 ??? Other chest pain 09/04/2018 ??? S/P CABG x 3 01/24/2018 ??? Snoring 08/05/2020 ??? Superficial postoperative wound infection 02/23/2018 sternum ??? Wears glasses 08/05/2020 ??? Weight gain 08/05/2020 40# past 6-8 months-covid ??? Wound of sternal region 02/23/2018 Surgical History: Past Surgical History: Procedure Laterality Date ??? COLONOSCOPY N/A 11/12/2020 N/A; COLONOSCOPY SCREEN ??? Coronary Artery Bypass Graft N/A 01/24/2018 N/A; Coronary artery bypass graft x 3 ??? Tonsillectomy WOOD DIE MAKER Status: No LMP for male patient. unknown OB History No obstetric history on file. Covid Vaccine: Lab Results: Recent Labs Base Name 01/30/24 0824 [id number] 132* SPECIMENTYPE Cap Fingerstick Recent Labs Component Name 01/30/24 0429 WBC 10.0 RBC 4.27* HCT 38.7 HGB 12.4* PLTCOUNT 289 MCV 90.6 MCH 29.0 MCHC 32.0 MPV 9.3 Recent Labs Component Name 01/23/24 1039 ABORH O NEG ABSCG NEG Recent Labs Component Name 01/30/24 0429 SODIUM 139 POTASSIUM 4.1 CALCIUM 9.6 CHLORIDE 101 CO2 26 GLUCOSE 146* BUN 17 CREATININE 0.80 Recent Labs Component Name 01/30/24 0429 MAGNESIUM 1.5* Recent Labs Component Name 01/30/24 0429 PHOS 3.7 Recent Labs Component Name 01/27/24 1233 PH 7.42 PO2 64* PCO2 44 BE 3.4* Recent Labs Component Name 01/23/24 1045 01/23/24 1039 PTT - 28.3 PT - 13.3 INR 1.1 1.0 Recent Labs Result Component Current Result CK 228 (H) (01/27/2024) Recent Labs Result Component Current Result Albumin 2.7 (L) (01/30/2024) Alkaline Phosphatase 81 (01/30/2024) ALT 9 (01/30/2024) Anion Gap (AG) Arterial 10 (01/27/2024) Anion Gap 12 (01/30/2024) AST 14 (01/30/2024) Bilirubin Total 0.2 (01/30/2024) eGFR by CKD-EPI >90 (01/30/2024) documented in this encounter Miscellaneous Notes * Anesthesia Transfer of Care - Rachell Torres APRN-CIVIL ENGINEERING TEACHER - 01/30/2024 3:25 PM CDT ANESTHESIA TRANSFER OF CARE NOTE Today's Date: 01/30/2024 Date of : 1960 Patient: Yaya Vazquez Procedure(s): ESOPHAGOGASTRODUODENOSCOPY (EGD) WITH PEG PLACEMENT Surgeon(s): Primary: Jeff Ruffin MD Preop Diagnosis: * No Diagnosis Codes entered * Pre-op Meds (From admission, onward) Start Stop Status Route Frequency Ordered 01/30/24 0800 *Hold/Avoid Medication 01/30/24 1659 Verified OTHER EVERY 12 HOURS (08 and 20) 01/29/24 1509 01/23/24 1032 0.9% NaCl injection 1-10 mL See Hyperspace for full Linked Orders Report. -- Dispensed IK PRN 01/23/24 1033 01/23/24 1400 0.9% NaCl injection 3 mL See Hyperspace for full Linked Orders Report. -- Dispensed IK EVERY 8 HOURS 01/23/24 1033 01/29/24 1500 acetaminophen (Tylenol) tablet 650 mg -- Verified Enteral Tube EVERY 4 HOURS PRN 01/29/24 1501 01/24/24 2100 albuterol-ipratropium (Duo-Neb) nebulizer solution 3 mL -- Dispensed IN EVERY 6 HOURS 01/24/24 1816 01/27/24 1100 amLODIPine (Norvasc) tablet 10 mg -- Dispensed Enteral Tube DAILY 01/27/24 1011 01/25/24 0900 aspirin chew tablet 81 mg -- Dispensed Enteral Tube DAILY 01/24/24 0937 01/28/24 2100 atorvastatin (Lipitor) tablet 80 mg -- Dispensed Enteral Tube AT BEDTIME 01/28/24 1059 01/23/24 1636 atropine 0.1 mg/ml syringe ADS Med Note to Pharmacy: Created by cabinet override -- Dispensed 01/23/24 1636 01/28/24 1100 bisacodyl (Dulcolax) suppository 10 mg 01/31/24 0859 Dispensed RE DAILY 01/28/24 1052 01/30/24 1700 clopidogrel (plaVIX) tablet 75 mg -- Verified PO DAILY 01/30/24 1053 01/23/24 1852 dextrose 10 % IV bolus See Hyperspace for full Linked Orders Report. -- Dispensed IV PRN 01/23/24 1854 01/23/24 1852 dextrose 10 % IV bolus See Hyperspace for full Linked Orders Report. -- Dispensed IV PRN 01/23/24 1854 01/23/24 1633 DOPamine 1600 mcg/mL infusion ADS Med Note to Pharmacy: Created by cabinet override -- Dispensed 01/23/24 1633 01/23/24 1852 glucagon (Glucagen) injection 1 mg See Hyperspace for full Linked Orders Report. -- Verified SC PRN 01/23/24 1854 01/23/24 1636 glycopyrrolate (Robinul) injection ADS Med Note to Pharmacy: Created by cabinet override -- Dispensed 01/23/24 1636 01/25/24 0900 [MAR Hold] heparin injection 5,000 Units (MAR Hold since Sun01/30/2024 at 0800 by Denise Figueroa, PharmD.) -- Dispensed SC 2 TIMES DAILY 01/24/24 0938 01/26/24 211 hydrALAZINE (Apresoline) injection 10 mg -- Dispensed IV EVERY 1 HOUR PRN 01/26/24 2113 01/28/24 1200 insulin aspart (NovoLOG) pen 0-18 Units -- Verified SC EVERY 6 HOURS 01/28/24 1059 01/28/24 2100 levETIRAcetam (Keppra) tablet 500 mg -- Dispensed Enteral Tube 2 TIMES DAILY 01/28/24 1557 01/27/24 0030 losartan (Cozaar) tablet 50 mg -- Dispensed Enteral Tube AT BEDTIME 01/27/24 0014 01/27/24 1200 modafinil (Provigil) tablet 200 mg -- Dispensed Enteral Tube EVERY MORNING 01/27/24 1157 01/27/24 0100 niCARdipine (Cardene) 50 mg in 0.9% NaCl IV 100 mL infusion -- Dispensed IV CONTINUOUS 01/27/24 0015 01/23/24 1613 nitroGLYCERIN (Nitro-Bid) 2% ointment ADS Med Note to Pharmacy: Created by cabinet override -- Dispensed 01/23/24 1613 01/23/24 1331 nitroGLYCERIN 200 mcg/ml in dextrose 5 % infusion ADS Med Note to Pharmacy: Created by cabinet override -- Dispensed 01/23/24 1331 01/24/24 1636 ondansetron (Zofran) injection 4 mg -- Dispensed IV EVERY 4 HOURS PRN 01/24/24 1636 01/24/24 1636 prochlorperazine (Compazine) injection 10 mg -- Dispensed IV EVERY 4 HOURS PRN 01/24/24 1636 01/23/24 2100 senna-docusate (Senokot-S) tablet 2 tablet -- Dispensed Enteral Tube 2 TIMES DAILY 01/23/24 1855 01/23/24 1330 verapamil (Isoptin) injection ADS Med Note to Pharmacy: Created by cabinet override -- Dispensed 01/23/24 1330 * No Diagnosis Codes entered * . Allergies Allergen Reactions ??? Lisinopril Angioedema ??? Pcn [Penicillins] Swelling eyes swelled shut 50 years ago ??? Penicillin V Rash Vitals: Patient Vitals for the past 3 hrs: BP Pulse Resp SpO2 Pain Rating Score #1 01/30/24 1519 -- -- -- 90 % -- 01/30/24 1517 (!) 230/141 -- -- -- -- 01/30/24 1515 -- -- -- 100 % -- 01/30/24 1512 (!) 187/110 -- -- -- -- 01/30/24 1510 -- -- -- 99 % -- 01/30/24 1506 157/97 -- -- -- -- 01/30/24 1505 -- -- -- 94 % -- 01/30/24 1501 (!) 142/101 -- -- -- -- 01/30/24 1328 -- -- -- -- 0 01/30/24 1300 129/77 97 (!) 36 100 % -- 01/30/24 1245 -- 99 24 100 % -- 01/30/24 1230 141/94 99 16 93 % -- Lines, Drains, and Airways Type Details Placement Removal Peripheral IV Date: 01/23/24; Time: 1055; Orientation: Left; Location: Antecubital; Gauge: 18 G 01/23/24 1055 by Juan Pickard RN Peripheral IV Date: 01/23/24; Time: 1136; Orientation: Left; Location: Antecubital 01/23/24 1136 byJuan Pickard RN Gastric Tube 01/26/24; 1430; NGT; Nostril/Nare, Right; Nel Minor RN 01/26/24 1430 by Brennan Minor RN Enteral - 01/30/24; 1514; Dr. Ruffin; PEG; Abdomen, Midline, Upper; 20; [id number]; Sedated 01/30/24 1514 by Tarah Rodriguez RN Intraprocedure I/O Totals Intake propofol (DIPRIVAN) injection 10mg/ml (ENDO USE) 12.00 mL Total Intake 12 mL Patient Transfer Location: ICU Transport Airway: supplemental O2 and spontaneous respirations Transport Monitoring: heart rate, continuous pulse oximetry, frequent blood pressure checks and satellite project site monitor Complications: None Comments: Report given to FRUIT PACKER Handoff Given? Yes MELYSSA Ballesteros documented in this encounter Plan of Treatment Upcoming Encounters Date Type Department Care Team (Late st Contact Info) Description 10/20/2024 8:00 AM FABRIC NORMALIZER Office Visit [facility] Medical [facility] - Family Medicine [address] [phone] Kiana Cole MD [address] [place] [address] 11/28/2024 9:00 AM FABRIC NORMALIZER Office Visit [facility] - Neurology [address] [facility] [place] [phone] Aline Finch MD [address] [facility] [place] [place] [address] 02/10/2025 10:00 AM CDT Office Visit [facility] - Cardiology [address] [phone] Curly Lay MD [address] [phone] documented as of this encounter Visit Diagnoses Not on filedocumented in this encounter Administered Medications Inactive Administered Medications - up to 3 most recent administrations Medication Order MAR Action Action Date Dose Rate Site 0.9% NaCl infusion Intravenous, CONTINUOUS PRN, Starting on Sun01/30/24 at 1459, Until Sun01/30/24 at 1520, Anesthesia Intra-op Restarted 01/30/2024 3:17 PM CDT $ New Bag/Syringe 01/30/2024 2:59 PM CDT 50 mL/ hr ceFAZolin (Ancef) injection Intravenous, PRN, Starting on Sun01/30/24 at 1503, Until Sun01/30/24 at 1520, Anesthesia Intra-op $ Given 01/30/2024 3:03 PM CDT 2 g lidocaine PF (Xylocaine MPF) 1 % injection Intravenous, PRN, Starting on Sun01/30/24 at 1505, Until Sun01/30/24 at 1520, Anesthesia Intra-op $ Given 01/30/2024 3:05 PM CDT 100 mg propofol (Diprivan) injection Intravenous, CONTINUOUS PRN, Starting on Sun01/30/24 at 1506, Until Sun01/30/24 at 1520, Anesthesia Intra-op $ New Bag/Syringe 01/30/2024 3:06 PM CDT documented in this encounter Care Teams Eyeglass Inspector Relationship Specialty Start Date End Date Sylvain Daniels MD PCP - General Family Medicine 05/10/22 02/14/24 documented as of this encounter
--- OUTSIDE RECORDS SUMMARY | 2024-10-11 19:44 | XMS_ITS | Encounter Summary ---
Author Organization [facility] Health Address [address] [place] [address] Care Team Providers Care Hardwood Floor Layer Name Role Phone Sylvain Daniels MD Primary Care Provider [phone]- [phone] Encounter Details Date Type Department Care Team (Latest Contact Info) Description 10/18/2022 Travel Social History Tobacco Use Types Packs/Day Years Used Date Smoking Tobacco: Some Days Cigars Started: 1997 Smokeless Tobacco: Never Comments:3-4 times / month-2 020 says 1x/month Alcohol Use Standard Drinks/Week Comments Yes 10 (1 standard drink = 0.6 oz pu re alcohol) 0-50+ a week AUDIT-C Answer Date Recorded Q1: How often do you have a drink containing alc ohol? Monthly or less 07/26/2022 Average Number of Drinks Not on file 022 Frequency of Binge Drinking Not on file 07/15 Overall Financial Resource Strain (CARDIA) Answe r Date Recorded How hard is it for you to pa y for the very basics like food, housing, medical care, and heating? Not hard at all 08/05/2020 PHQ-2 Answer Date Recorded PHQ2 TOTAL SCORE 0 10/18/2022 Hunger Vital Sign Answer Date Recorded Within the past 12 months, y ou worried that your food would run out before you got the money to buy more. Never true 07/27/20 22 Within the past 12 months, t he food you bought just didn't last and you didn't have money to get more. Never true 07/27/2022 PRAPARE - Transportation Answer Date Re corded In the past 12 months, has l ack of transportation kept you from medical appointments or from getting medications? No 07/16 In the past 12 months, has l ack of transportation kept you from meetings, work, or from getting things needed for daily living? No 08/05/2020 Education Answer Date Recorded What is the highest level of school you have completed or the highest degree you have received? Bachelor's degree (e.g., BA, AB, BS) 08/05/2020 Sex and Gender Information Value Date Recorded Sex Assigned at Not on file Gender Identity Not on file Sexual Orientation Not on file COVID-19 Exposure Response Date Recorded In the last 10 days, have yo u been in contact with someone who was confirmed or suspected to have Coronavirus/COVID-19? No / Unsure 10/18/2022 9:47 AM CREATIVE ARTS MUSIC THERAPIST documented as of this encounter Functional Status Functional Status Response Date of Assess ment Is person deaf or have diya us hearing difficulty? No 01/30/2018 Is person blind or have seri ous difficulty seeing? No 01/30/2018 Does person have serious difficulty walking/climbing stairs? Yes-post CABC; needs rehab to build activity level. 01/30/2018 Does person have difficulty dressing/bathing? Yes-post CABG; needs some assist 01/30/2018 Does person have difficulty doing errands alone? Yes 01/30/2018 Cognitive Status Response Date of Assessm ent Does person have difficulty concentrating/remembering/making decisions? No 01/30/2018 documented as of this encounter Plan of Treatment Upcoming Encounters Date Type Department Care Team (Late st Contact Info) Description 10/20/2024 8:00 AM CREATIVE ARTS MUSIC THERAPIST Office Visit [facility] - Family Medicine [address] [place] [address] Kiana Cole MD [address] [place] [address] 11/28/2024 9:00 AM CREATIVE ARTS MUSIC THERAPIST Office Visit [facility] - Neurology [address] [facility] [place] [address] Aline Finch MD [address] [facility] [place] [address] 02/10/2025 10:00 AM CDT Office Visit [facility] - Cardiology [address] [facility] [address] [place] [address] Curly Lay MD [address] [facility] [address] [place] [address] documented as of this encounter Visit Diagnoses Not on filedocumented in this encounter Care Teams Hardwood Floor Layer Relationship Specialty Start Date End Date Sylvain Daniels MD PCP - General Family Medicine 05/10/22 02/14/24 documented as of this encounter
--- OUTSIDE RECORDS SUMMARY | 2024-10-11 19:44 | XMS_ITS | Encounter Summary ---
Author Organization [facility] Address [address] [facility] [place] [address] Care Team Providers Care Dye Blender Name Role Phone Sylvain Daniels MD Primary Care Provider +1- [phone] Reason for Referral * OP/Amb RFL Auth (Routine) - Closed Specialty Diagnoses / Procedures Referred By Contac t Referred To Contact Diagnoses Coronary artery disease involving coronary bypass graft of [place] heart with unstable angina pectoris (HCC) S/P CABG x 3 Procedures EKG 12-LEAD Sylvain Daniels MD [address] [place] [address] Referral ID Status Reason Start Date Expiration Date Visits Re quested Visits Authorized [id number] Closed 10/18/2022 10/18/2023 1 1 CILOR Reason for Visit * Reason Comments Fall Encounter Details Date Type Department Care Team (Late st Contact Info) Description 10/18/2022 9:40 AM COUNCILOR Office Visit [facility] Medical [facility] - Internal Medicine [address] [facility] [place] [address] Sylvain Daniels MD [address] [place] [address] Chronic obstructive pulmonary disease, unspecified COPD type (HCC) (Primary Dx); Coronary artery disease involving coronary bypass graft of [place] heart with unstable angina pectoris (HCC); S/P CABG x 3; Essential hypertension; Controlled type 2 diabetes mellitus without complication, without long-term current use of insulin (HCC); Class 2 severe obesity with serious comorbidity and body mass index (BMI) of 38.0 to 38.9 in adult, unspecified obesity type (HCC); Need for COVID-19 vaccine Social History Tobacco Use Types Packs/Day Years Used Date Smoking Tobacco: Some Days Cigars Started: 1997 Smokeless Tobacco: Never Tobacco Cessation:Ready to Q uit: Not Asked; Counseling Given: Not Answered Comments:3-4 times / month-2019 says 1x/month Alcohol [...] money to buy more. Never true 07/27/20 Within the past 12 months, t he [...] Coronavirus/COVID-19? No / Unsure 10/18/2022 9:47 AM COUNCILOR documented as of this encounter Last Filed Vital Signs Vital Sign Reading Time Taken Comments Blood Pressure 188/106 10/18/2022 9:55 AM COUNCILOR Pulse 102 10/18/2022 9:55 AM COUNCILOR Temperature 36.3 ??C (97.3 ??F) 10/18/2022 9:55 AM CS T Respiratory Rate - - Oxygen Saturation 98% 10/18/2022 9:55 AM COUNCILOR Inhaled Oxygen Concentration - - Weight 142.9 kg (315 lb) 10/18/2022 9:55 AM COUNCILOR Height 193 cm (6' 4 ) 10/18/2022 9:55 AM COUNCILOR Body Mass Index 38.34 10/18/2022 9:55 AM COUNCILOR documented in this encounter Functional Status Functional [...] No 01/30/2018 documented as of this encounter Progress Notes * Sylvain Daniels MD - 10/18/2022 10:10 AM CST Office Visit, Established Patient, [id number] HISTORY: (4+ elements or 3+ chronic) CC & HPI: Yaya Vazquez is a 62 year old male established patient, here for: Chief Complaint Patient presents with ??? Fall HPI Pt presents to clinic with his spouse for f/u of chronic health conditions. Pt last seen by APURVA Saul on 08/03/22 for hospital f/u of COPD exacerbation. Pt recently presented to [facility] ER yesterday with alcohol intoxication and friend picked him up from ER. Pt with COPD currently tx with trelegy 1 puff daily and albuterol prn. Pt notes plan for f/u with pulmonology, Dr. Spann. Pt currently working in [employer] and having difficulty performing job due to fatigue and SOB with prolonged standing and use of stairs. Pt requesting work accomodation to work only in lower level work site, no use of stairs at work and allowing pt to take frequent breaks every 2 hours. 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 Pt with HTN currently taking amlodipine 10mg. Carvedilol 25mg bid, losartan 100mg and spironolactone 25mg daily. Pt with DMII with POC HbA1c improved today to 5.9 (down from 7.2). Pt currently tx with Patient with history of diabetes, last hemoglobin A1c 7.3. Pt currently taking metformin XR 1000mg BID and glipizide 5 mg. I have reviewed the medications listed in the patient's chart. Review of Systems (2 - 9) Review of Systems Constitutional: Positive for malaise/fatigue. Negative for chills and fever. Respiratory: Positive for shortness of breath. Negative for cough, hemoptysis, sputum production and wheezing. Cardiovascular: Negative for chest pain, palpitations and leg swelling. Gastrointestinal: Negative for abdominal pain, nausea and vomiting. Neurological: Negative for dizziness and headaches. PFSH, other pertinent history: (1 required) Past Medical History: Diagnosis Date ??? Anemia 01/2018 ??? Asthma ??? Chest congestion 08/05/2020 ??? Confusional arousals 08/05/2020 ??? Controlled type 2 diabetes mellitus without complication, without long-term current use of insulin ([facility]) 09/28/2011 ??? Coronary artery disease involving [place]ville heart with angina pectoris ([facility]) 09/04/2018 ??? Cough syncope 2017 ??? Daytime sleepiness 08/05/2020 ??? Essential hypertension 01/23/2018 ??? Hyperlipidemia 08/05/2020 ??? Inadequate sleep hygiene 08/05/2020 ??? Morbid obesity with BMI of 40.0-44.9, adult ([facility]) 08/05/2020 ??? Nocturia 08/05/2020 ??? Obesity (BMI 30-39.9) 04/24/2012 ??? Other chest pain 09/04/2018 ??? S/P CABG x 3 01/24/2018 ??? Snoring 08/05/2020 ??? Superficial postoperative wound infection 02/23/2018 sternum ??? Wears glasses 08/05/2020 ??? Weight gain 08/05/2020 40# past 6-8 months-covid ??? Wound of sternal region 02/23/2018 I have reviewed the allergies listed in the patient's chart. EXAM (a) single system: 12 elements from any single system exam OR b) multisystem: 12 elements from 2 ormore organ systems or at least 2 elements from each of 6 organ systems) BP (!) 188/106 Pulse 102 Temp 97.3 ??F (36.3 ??C) (Temporal) Ht 1.93 m (6' 4 ) Wt (!) 142.9kg (315 lb) SpO2 98% BMI 38.34 kg/m?? Physical Exam Vitals and nursing note reviewed. Constitutional: General: He is not in acute distress. Appearance: Normal appearance. He is obese. He is not ill-appearing, toxic- appearing or diaphoretic. HENT: Head: Normocephalic and atraumatic. Cardiovascular: Rate and Rhythm: Normal rate and regular rhythm. Heart sounds: Normal heart sounds. No murmur heard. No friction rub. No gallop. Pulmonary: Effort: Pulmonary effort is normal. No respiratory distress. Breath sounds: Normal breath sounds. No stridor. No wheezing, rhonchi or rales. Musculoskeletal: Right lower leg: No edema. Left lower leg: No edema. Skin: General: Skin is warm and dry. Coloration: Skin is not jaundiced. Findings: No bruising, erythema or rash. Neurological: Mental Status: He is alert. Psychiatric: Mood and Affect: Mood normal. Behavior: Behavior normal. Office Visit on 10/18/2022 Component Date Value Ref Range Status ??? Hemoglobin A1c POCT 10/18/2022 5.9 % Final ??? Expiration Date 10/18/2022 06/01/24 Final ??? Lot # 10/18/2022 [id number] Final ??? QC Verified 10/18/2022 Yes Yes Final Office Visit on 08/03/2022 Component Date Value Ref Range Status ??? Hemoglobin A1c POCT 08/03/2022 7.2 % Final ??? Expiration Date 08/03/2022 04/09/2024 Final ??? Lot # 08/03/2022 [id number] Final ??? QC Verified 08/03/2022 Yes Yes Final Admission on 07/26/2022, Discharged on 07/28/2022 Component Date Value Ref Range Status ??? WBC 07/26/2022 9.7 4.4 - 10.7 x10E9/L Final ??? RBC 07/26/2022 3.94 3.80 - 5.40 x10E12/L Final ??? Hemoglobin 07/26/2022 12.2 12.0 - 17.6 gm/dL Final ??? Hematocrit 07/26/2022 36.7 35.2 - 51.7 % Final ??? MCV 07/26/2022 93.1 80.7 - 98.3 fl Final ??? MCH 07/26/2022 31.0 26.7 - 34.0 pg Final ??? MCHC 07/26/2022 33.2 30.8 - 35.9 gm/dL Final ??? Platelet Count 07/26/2022 254 153 - 416 x10E9/L Final ??? RDW-CV 07/26/2022 14.0 12.1 - 14.9 % Final ??? MPV 07/26/2022 9.4 9.4 - 12.9 fl Final ??? Neutrophils % 07/26/2022 67.6 44.0 - 73.0 % Final ??? Lymphocytes % 07/26/2022 21.8 20.0 - 43.0 % Final ??? Monocytes % 07/26/2022 9.1 5.0 - 13.0 % Final ??? Eosinophils % 07/26/2022 0.7 0.0 - 6.0 % Final ??? Basophils % 07/26/2022 0.2 0.0 - 2.0 % Final ??? Immature Granulocytes 07/26/2022 0.6 0 - 1 % Final ??? Neutrophil Absolute 07/26/2022 6.57 2.01 - 7.14 x10E9/L Final ??? Lymphocytes Absolute 07/26/2022 2.12 1.07 - 3.94 x10E9/L Final ??? Monocytes Absolute 07/26/2022 0.89 0.26 - 1.07 x10E9/L Final ??? Eosinophils Absolute 07/26/2022 0.07 0 - 0.47 x10E9/L Final ??? Basophils Absolute 07/26/2022 0.02 0 - 0.08 x10E9/L Final ??? Immature Granulocytes Absolute 07/26/2022 0.06 0.00 - 0.06 x10E9/L Final ??? nRBC Auto 07/26/2022 0 /100 WBC Final ??? Glucose 07/26/2022 151 (H) 70 - 105 mg/dL Final ??? Sodium 07/26/2022 138 136 - 145 mmol/L Final ??? Potassium 07/26/2022 4.0 3.5 - 5.1 mmol/L Final ??? Chloride 07/26/2022 96 (L) 98 - 107 mmol/L Final ??? CO2 07/26/2022 29 23 - 31 mmol/L Final ??? Calcium 07/26/2022 9.2 8.4 - 10.4 mg/dL Final ??? Anion Gap 07/26/2022 13 8 - 18 mmol/L Final ??? BUN 07/26/2022 13 8.4 - 25.7 mg/dL Final ??? Creatinine 07/26/2022 0.94 0.72 - 1.25 mg/dL Final ??? Alkaline Phosphatase 07/26/2022 90 40 - 150 U/L Final ??? ALT 07/26/2022 10 0 - 61 U/L Final ??? AST 07/26/2022 14 5 - 34 U/L Final ??? Protein Total 07/26/2022 8.4 (H) 6.4 - 8.3 gm/dL Final ??? Albumin 07/26/2022 4.0 3.2 - 4.6 gm/dL Final ??? Bilirubin Total 07/26/2022 0.6 0.2 - 1.2 mg/dL Final ? ? eGFR by CKD-EPI 07/26/2022 >90 >=90 mL/min/1.73 m2 Final ??? COVID-19 PCR 07/26/2022 Not detected Not detected Final ??? Influenza A PCR 07/26/2022 Not detected Not detected Final ??? Influenza B PCR 07/26/2022 Not detected Not detected Final ??? Magnesium 07/26/2022 1.4 (L) 1.6 - 2.6 mg/dL Final ??? PT 07/26/2022 14.1 12.1 - 14.8 sec Final ??? INR 07/26/2022 1.1 0.9 - 1.1 Final ? ? Troponin I 07/26/2022 <0.010 <0.038 ng/mL Final ??? Ventricular Rate 07/26/2022 69 BPM Final ??? Atrial Rate 07/26/2022 69 BPM Final ??? P-R Interval 07/26/2022 156 ms Final ??? QRS Duration ms 07/26/2022 80 ms Final ??? Q-T Interval ms 07/26/2022 452 ms Final ??? QTC Calculation (Bezet) 07/26/2022 484 ms Final ??? Calculated P [place] 07/26/2022 55 degrees Final ??? Calculated R [place] 07/26/2022 40 degrees Final ??? Calculated T [place] 07/26/2022 102 degrees Final ??? Interpretation EKG 07/26/2022 Final Value:Sinus rhythm with occasional Premature ventricular complexes ST & T wave abnormality, consider lateral ischemia Abnormal ECG When compared with ECG of 04-SEP-2018 09:01, Premature ventricular complexes are now Present Confirmed by CADEN DAVIS, BARON CAMARA ([id number]) on 07/27/2022 7:04:49 AM ? ? Troponin I 07/26/2022 <0.010 <0.038 ng/mL Final ? ? Lactic Acid 07/26/2022 0.77 <=2 mmol/L Final ? ? BNP 07/26/2022 90 <=100 pg/mL Final ??? D-Dimer 07/26/2022 0.30 0.27 - 0.50 ug/mL FEU Final ? ? Troponin I 07/27/2022 <0.010 <0.038 ng/mL Final ??? pH Arterial 07/26/2022 7.43 7.35 - 7.45 pH Final ??? pO2 Arterial 07/26/2022 74 (L) 80 - 100 mmHg Final ??? pCO2 Arterial 07/26/2022 50 (H) 35 - 45 mmHg Final ??? HCO3 Arterial 07/26/2022 33 (H) 22 - 26 mmol/l Final ??? BE Arterial 07/26/2022 7.5 (H) -2.0 - 2.0 mmol/L Final ??? O2 Saturation Arterial 07/26/2022 96 90 - 100 % Final ??? Kevin's Test 07/26/2022 Yes Final ??? Sample Site 07/26/2022 Left RA Final ??? O2 Device 07/26/2022 Cannula Final ??? Liter Flow (LPM) 07/26/2022 3 Final ??? WBC 07/27/2022 10.2 4.4 - 10.7 x10E9/L Final ??? RBC 07/27/2022 4.07 3.80 - 5.40 x10E12/L Final ??? Hemoglobin 07/27/2022 12.2 12.0 - 17.6 gm/dL Final ??? Hematocrit 07/27/2022 38.4 35.2 - 51.7 % Final ??? MCV 07/27/2022 94.3 80.7 - 98.3 fl Final ??? MCH 07/27/2022 30.0 26.7 - 34.0 pg Final ??? MCHC 07/27/2022 31.8 30.8 - 35.9 gm/dL Final ??? Platelet Count 07/27/2022 254 153 - 416 x10E9/L Final ??? RDW-CV 07/27/2022 14.1 12.1 - 14.9 % Final ??? MPV 07/27/2022 9.3 (L) 9.4 - 12.9 fl Final ??? Neutrophils % 07/27/2022 86.6 (H) 44.0 - 73.0 % Final ??? Lymphocytes % 07/27/2022 11.9 (L) 20.0 - 43.0 % Final ??? Monocytes % 07/27/2022 0.7 (L) 5.0 - 13.0 % Final ??? Eosinophils % 07/27/2022 0.0 0.0 - 6.0 % Final ??? Basophils % 07/27/2022 0.2 0.0 - 2.0 % Final ??? Immature Granulocytes 07/27/2022 0.6 0 - 1 % Final ??? Neutrophil Absolute 07/27/2022 8.85 (H) 2.01 - 7.14 x10E9/L Final ??? Lymphocytes Absolute 07/27/2022 1.21 1.07 - 3.94 x10E9/L Final ??? Monocytes Absolute 07/27/2022 0.07 (L) 0.26 - 1.07 x10E9/L Final ??? Eosinophils Absolute 07/27/2022 0.00 0 - 0.47 x10E9/L Final ??? Basophils Absolute 07/27/2022 0.02 0 - 0.08 x10E9/L Final ??? Immature Granulocytes Absolute 07/27/2022 0.06 0.00 - 0.06 x10E9/L Final ??? nRBC Auto 07/27/2022 0 /100 WBC Final ??? Glucose 07/27/2022 285 (H) 70 - 105 mg/dL Final ??? Sodium 07/27/2022 134 (L) 136 - 145 mmol/L Final ??? Potassium 07/27/2022 4.2 3.5 - 5.1 mmol/L Final ??? Chloride 07/27/2022 95 (L) 98 - 107 mmol/L Final ??? CO2 07/27/2022 25 23 - 31 mmol/L Final ??? Calcium 07/27/2022 8.9 8.4 - 10.4 mg/dL Final ??? Anion Gap 07/27/2022 14 8 - 18 mmol/L Final ??? BUN 07/27/2022 17 8.4 - 25.7 mg/dL Final ??? Creatinine 07/27/2022 0.98 0.72 - 1.25 mg/dL Final ??? Albumin 07/27/2022 3.9 3.2 - 4.6 gm/dL Final ??? Phosphorus 07/27/2022 3.2 2.3 - 4.7 mg/dL Final ? ? eGFR by CKD-EPI 07/27/2022 87 (L) >=90 mL/min/1.73 m2 Final ??? Glucose WB/POC 07/27/2022 314 (H) 70 - 106 mg/dL Final ??? Specimen Type 07/27/2022 Cap Fingerstick Final ??? Glucose WB/POC 07/27/2022 362 (H) 70 - 106 mg/dL Final ??? Specimen Type 07/27/2022 Cap Fingerstick Final ??? Glucose WB/POC 07/27/2022 276 (H) 70 - 106 mg/dL Final ??? Specimen Type 07/27/2022 Cap Fingerstick Final ??? Glucose WB/POC 07/27/2022 318 (H) 70 - 106 mg/dL Final ??? Specimen Type 07/27/2022 Cap Fingerstick Final ??? Glucose WB/POC 07/28/2022 256 (H) 70 - 106 mg/dL Final ??? Specimen Type 07/28/2022 Cap Fingerstick Final ??? Glucose WB/POC 07/27/2022 201 (H) 70 - 106 mg/dL Final ??? Specimen Type 07/27/2022 Cap Fingerstick Final ??? Glucose WB/POC 07/28/2022 347 (H) 70 - 106 mg/dL Final ??? Specimen Type 07/28/2022 Cap Fingerstick Final ??? Glucose WB/POC 07/28/2022 156 (H) 70 - 106 mg/dL Final ??? Specimen Type 07/28/2022 Cap Fingerstick Final ??? Glucose WB/POC 07/28/2022 201 (H) 70 - 106 mg/dL Final ??? Specimen Type 07/28/2022 Cap Fingerstick Final ASSESSMENT: 1. Chronic obstructive pulmonary disease, unspecified COPD type (CMS/HCC) 2. Coronary artery disease involving coronary bypass graft of [place] heart with unstable angina pectoris (CMS/HCC) 3. S/P CABG x 3 4. Essential hypertension 5. Controlled type 2 diabetes mellitus without complication, without long-term current use of insulin (CMS/HCC) 6. Class 2 severe obesity with serious comorbidity and body mass index (BMI) of 38.0 to 38.9 in adult, unspecified obesity type (CMS/[facility]) 7. Need for COVID-19 vaccine COPD: stable. Cont current Inh tx and advised increased low impact PE. Consider formal pulmonary rehab. Provided work accomodation letter- work on lower level, avoid use of stairs and limit standing to 2 hours then allow 10min break. Pt to f/u as scheduled with pulmonology. CAD: s/p CABG. Increased fatigue/exercise intolerance. In office EKG unchanged from prior EKG- rate78, NSR with t wave abnormalities (inversions in V5 and V6). Cont current tx and provided referral to re est care with Cardiology. DMII: improved POC HbA1c today at 5.9. Cont current tx. HTN: cont current tx and encouraged home BP monitoring with log. Goal BP < 1320/80. Obesity: BMI of 38.3. The patient is advised to begin progressive daily aerobic exercise program, follow a low fat, low cholesterol diet, attempt to lose weight, decrease or avoid alcohol intake, reduce salt in diet and cooking and reduce exposure to stress. PLAN: Orders Placed This Encounter ??? AMB REFERRAL TO CARDIOLOGY Standing Status: Future Standing Expiration Date: 10/18/2023 Referral Type: Evaluate & Treat Referral Reason: Specialty Services Required Number of Visits Requested: 12 ??? HEMOGLOBIN A1C - POINT OF CARE (AMB) Order Specific Question: Release to patient Answer: Immediate ??? EKG 12-LEAD Standing Status: Future Standing Expiration Date: 10/18/2023 Order Specific Question: Release to patient Answer: Immediate ??? DE ELECTROCARDIOGRAM, COMPLETE Return to office in 3-6 months. Patient instructed to call with any concerns or problems. CILOR documented in this encounter Plan of Treatment Upcoming Encounters Date Type Department Care Team (Late st Contact Info) Description 10/20/2024 8:00 AM COUNCILOR Office Visit [facility] - Family Medicine [address] [facility] [address] [place] [phone] Kiana Cole MD [address] [place] [address] 11/28/2024 9:00 AM COUNCILOR Office Visit [facility] - Neurology [address] [facility], [place] [phone] Aline Finch MD [address] [facility] [place] [address] 02/10/2025 10:00 AM CDT Office Visit [facility] - Cardiology [address] [facility] [place] [phone] Curly Lay MD [address] [facility] [address] [place] [address] documented as of this encounter Procedures Procedure Name Priority Date/Time Associated Diagnosis Comments HEMOGLOBIN A1C - POINT OF CARE (AMB) Routine 10/18/2022 10:45 AM COUNCILOR Controlled type 2 diabetes mellitus without complication, without long-term current use of insulin ([facility]) documented in this encounter Results * HEMOGLOBIN A1C - POINT OF CARE (AMB) (10/18/2022 10:45 AM COUNCILOR) Hemoglobin A1c POCT 5.9 % [facility] Expiration Date 06/01/24 [facility] Lot # [id number] [facility] QC Verified Yes Yes [facility] Blood BLOOD SPECIMEN / Unknown 10/18/2022 10:45 AM COUNCILOR Sylvain Daniels MD LAB - POINT OF CAR E ORDERABLES [facility] [address] [place] [address], [facility] [phone] * EKG 12-LEAD (10/18/2022) Sylvain Daniels MD ECG ORDERABLES documented in this encounter Visit Diagnoses Diagnosis Chronic obstructive pulmonary disease, unspecified COPD type (HCC)- Primary Coronary artery disease involving coronary bypass graft of [place] heart with unstable angina pectoris (HCC) S/P CABG x 3 Postsurgical aortocoronary bypass status Essential hypertension Controlled type 2 diabetes mellitus without complication, without long-term current use of insulin (HCC) Class 2 severe obesity with serious comorbidity and body mass index (BMI) of 38.0 to 38.9 in adult, unspecified obesity type (HCC) Need for COVID-19 vaccine documented in this encounter Care Teams Dye Blender Relationship Specialty Start Date End Date Sylvain Daniels MD PCP - General Family Medicine 05/10/22 02/14/24 documented as of this encounter
--- OUTSIDE RECORDS SUMMARY | 2024-10-11 19:44 | XMS_ITS | Encounter Summary ---
Author Organization [facility] Address [address] [place] [address] Care Team Providers Care Educational Therapy Teacher Name Role Phone Sylvain Daniels MD Primary Care Provider +1- [phone] Sylvain Daniels MD Unavailable Reason for Visit * Reason Onset Date Comments Insurance Issue/question 09/25/2022 Patient Requested Call 09/25/2022 Encounter Details Date Type Department Care Team (Late st Contact Info) Description 09/25/2022 Telephone [facility] - Family Medicine [address] [place] [address] Sylvain Daniels MD [address] [place] [address] Insurance Issue/question; Patient Requested Call Social History Tobacco Use Types Packs/Day Years Used Date Smoking Tobacco: Never Cigars St arted: 1997 Smokeless Tobacco: Never Comments:3-4 times / month-2 020 says 1x/month Alcohol Use Standard Drinks/Week Comments Yes 10 (1 standard drink = 0.6 oz pu re alcohol) AUDIT-C Answer Date Recorded Q1: How often do you have a drink containing alc ohol? Monthly or less 07/26/2022 Average Number of Drinks Not on file 10/12/2 022 Frequency of Binge Drinking Not on file 07/15 Overall Financial Resource Strain (CARDIA) Answe r Date Recorded How hard is it for you to pa y for the very basics like food, housing, medical care, and heating? Not hard at all 08/05/2020 PHQ-2 Answer Date Recorded PHQ2 TOTAL SCORE 2 08/03/2022 Hunger Vital Sign Answer Date Recorded Within [...] suspected to have Coronavirus/COVID-19? No / Unsure 09/25/2022 9:59 AM BEAD STRINGER documented as of this encounter Functional Status [...] No 01/30/2018 documented as of this encounter Miscellaneous Notes * Telephone Encounter - Richa Quintanilla MA - 09/25/2022 11:36 AM CST Called patient. He rescheduled appt to 09/28/22 with Kelly. His insurance should be active by then. STRINGER * Telephone Encounter - Zelalem Fuentes - 09/25/2022 10:58 AM CST Who is calling? self What is the reason for call?patient is having issues with his insurance with work and does not wantto miss his appt because of it. Insurance is starting up later than expected. Please call back. Expected Response from the Clinic? ( ex. Call back, etc..) [phone] STRINGER documented in this encounter Plan of Treatment Upcoming Encounters Date Type Department Care Team (Late st Contact Info) Description 10/20/2024 8:00 AM BEAD STRINGER Office Visit [facility] - Family Medicine [address] [facility] [address] [place] [phone] Kiana Cole MD [address] [place], [place] [phone] 11/28/2024 9:00 AM BEAD STRINGER Office Visit [facility] - Neurology [address] [facility], [place] [address] Aline Finch MD [address] [facility] [place] [place] [address] 02/10/2025 10:00 AM CDT Office Visit [facility] - Cardiology [address] [facility], [facility] [address] [place] [address] Curly Lay MD [address] [facility] [address] [place] [address] documented as of this encounter Visit Diagnoses Not on filedocumented in this encounter Care Teams Educational Therapy Teacher Relationship Specialty Start Date End Date Sylvain Daniels MD PCP - General Family Medicine 05/10/22 02/14/24 Sylvain Daniels MD [address] [place] [address] PCP - Attributed-[facility] Commercial 05/15/22 10/01/22 documented as of this encounter
--- OUTSIDE RECORDS SUMMARY | 2024-10-11 19:44 | XMS_ITS | Encounter Summary ---
Author Organization [facility] Address [address] [place] [address] Care Team Providers Care Beer Runner Name Role Phone Sylvain Daniels MD Primary Care Provider +1- [phone] Encounter Details Date Type Department Care Team (Latest Contact Info) Description 10/17/2022 Travel Social History Tobacco Use Types Packs/Day Years Used Date Smoking Tobacco: Never Cigars St d: 1997 Smokeless Tobacco: Never Comments:3-4 times / [...] Coronavirus/COVID-19? No / Unsure 09/25/2022 9:59 AM INSULATION MACHINE OPERATOR documented as of this encounter Functional Status [...] st Contact Info) Description 10/20/2024 8:00 AM INSULATION MACHINE OPERATOR Office Visit [facility] Medical Group - Family Medicine [address] [facility] [place] [address] Kiana Cole MD [address] [place] [address] 11/28/2024 9:00 AM INSULATION MACHINE OPERATOR Office Visit [facility] Group - Neurology [address] [facility], [place] [address] Aline Finch MD [address] [facility] [place] [address] 02/10/2025 10:00 AM CDT Office Visit [facility] - Cardiology [address] [facility], [facility] [address] [place] [address] Curly Lay MD [address] [facility] [address] [place] [address] documented as of this encounter Visit Diagnoses Not on filedocumented in this encounter Care Teams Beer Runner Relationship Specialty Start Date End Date Sylvain Daniels MD PCP - General Family Medicine 05/10/22 02/14/24 documented as of this encounter
--- OUTSIDE RECORDS SUMMARY | 2024-10-11 19:44 | XMS_ITS | Encounter Summary ---
Author Organization [facility] Address [address] [place] [address] Care Team Providers Care Payroll Representative Name Role Phone Sylvain Daniels MD Primary Care Provider [phone]- [phone] Reason for Visit * Reason Onset Date Comments No Show 05/08/2023 Encounter Details Date Type Department Care Team (Late st Contact Info) Description 05/08/2023 Telephone [facility] Medical Group - Internal Medicine [address] [facility] [address] Melony Song, HIGHWAY ENGINEERING TECHNICIAN-MALE MODEL [address] [facility] [place] [address] No Show Social History Tobacco Use Types Packs/Day Years [...] encounter Miscellaneous Notes * Telephone Encounter - Melony Song APRN-CNP - 05/08/2023 9:31 AM CDT Noted, thanks. * Telephone Encounter - Christi Zurita - 05/08/2023 9:06 AM CDT Pt showed up late for his appt yesterday, 05/07/23. Spoke with pt he said that he went to an express clinic. No show #2 mailed. documented in this encounter Plan of Treatment Upcoming Encounters Date Type Department Care Team (Late st Contact Info) Description 10/20/2024 8:00 AM BOARD MEMBER Office Visit [facility] Medical Group - Family Medicine [address] [facility], [facility] 150 [place] [phone] Kiana Cole MD [address] [place], [place] [phone] 11/28/2024 9:00 AM BOARD MEMBER Office Visit [facility] - Neurology [address] [facility], [place] [address] Aline Finch MD [address] [facility] [place] [address] 02/10/2025 10:00 AM CDT Office Visit [facility] - Cardiology [address] [facility], [place] [address] [place] [address] Curly Lay MD [address] [address] documented as of this encounter Visit Diagnoses Not on filedocumented in this encounter Care Teams Payroll Representative Relationship Specialty Start Date End Date Sylvain Daniels MD PCP - General Family Medicine 05/10/22 02/14/24 documented as of this encounter
--- OUTSIDE RECORDS SUMMARY | 2024-10-11 19:44 | XMS_ITS | Encounter Summary ---
Author Organization [facility] Address [address] [place] [address] Care Team Providers Care Transistor Tester Name Role Phone Sylvain Daniels MD Primary Care Provider +- [phone] Sylvain Daniels MD Unavailable [phone] Encounter Details Date Type Department Care Team (Latest Contact Info) Description 09/25/2022 Travel Social History Tobacco Use Types Packs/Day [...] Coronavirus/COVID-19? No / Unsure 09/25/2022 9:59 AM LIVESTOCK JUDGING COACH documented as of this encounter Functional Status [...] st Contact Info) Description 10/20/2024 8:00 AM LIVESTOCK JUDGING COACH Office Visit [facility] Medical [facility] - Family Medicine [address] [place] [phone] Kiana Cole MD [address] [place] [address] 11/28/2024 9:00 AM LIVESTOCK JUDGING COACH Office Visit [facility] - Neurology [address] [facility], [place] [phone] Aline Finch MD [address] [facility] [place] [address] 02/10/2025 10:00 AM CDT Office Visit [facility] - Cardiology [address] [facility], [facility] [address] [place] [address] Curly Lay MD [address] [facility] [address] [place] [address] documented as of this encounter Visit Diagnoses Not on filedocumented in this encounter Care Teams Transistor Tester Relationship Specialty Start Date End Date Sylvain Daniels MD PCP - General Family Medicine 05/10/22 02/14/24 Sylvain Daniels MD [address] [place] [address] PCP - Attributed-[facility] Commercial 05/15/22 10/01/22 documented as of this encounter
--- OUTSIDE RECORDS SUMMARY | 2024-10-11 19:44 | XMS_ITS | Encounter Summary ---
Author Organization [facility] Address [address] [place] [address] Care Team Providers Care Associate Software Engineer Name Role Phone Sylvain Daniels MD Primary Care Provider [phone]- [phone] Reason for Visit * Reason Onset Date Comments Late Cancel 10/25/2023 Encounter Details Date Type Department Care Team (Late st Contact Info) Description 10/25/2023 Telephone [facility] - Internal Medicine [address] [place] [address] Sylvain Daniels MD [address] [place] [address] Late Cancel Social History Tobacco Use Types Packs/Day Years [...] at all 08/05/2020 PHQ-2 Answer Date Recorded Patient Health Questionnaire-2 [...] encounter Miscellaneous Notes * Telephone Encounter - Yoko Donovan APRN-CNP - 10/26/2023 1:46 PM PROJECT CONTROLLER Noted, thanks. ECT CONTROLLER * Telephone Encounter - Christi Zurita - 10/26/2023 12:47 PM CST Same day cx letter mailed. 11/20/22-- no show letter-1 05/07/23 no show letter-2 10/24/23- same day cx ECT CONTROLLER * Telephone Encounter - Mony Lund LPN - 10/25/2023 8:36 AM CST Noted ECT CONTROLLER * Telephone Encounter - Fina Curry - 10/25/2023 8:05 AM CST Yaya Vazquez called and canceled their same day appointment Appointment Date: 10/25 Appointment Time: 9:20 If rescheduled: Visit date not found Provider: yoko Made aware of the 48 hour notice ECT CONTROLLER documented in this encounter Plan of Treatment Upcoming Encounters Date Type Department Care Team (Late st Contact Info) Description 10/20/2024 8:00 AM PROJECT CONTROLLER Office Visit [facility] - Family Medicine [address] [facility], [facility] [address] [place] [phone] Kiana Cole MD [address] [place] [address] 11/28/2024 9:00 AM PROJECT CONTROLLER Office Visit [facility] - Neurology [address] [facility], [place] [phone] Aline Finch MD [address] [facility] [place] [address] 02/10/2025 10:00 AM CDT Office Visit [facility] - Cardiology [address] [facility], [facility] [address] [place] [address] Curly Lay MD [address] [place] [phone] documented as of this encounter Visit Diagnoses Not on filedocumented in this encounter Care Teams Associate Software Engineer Relationship Specialty Start Date End Date Sylvain Daniels MD PCP - General Family Medicine 05/10/22 02/14/24 documented as of this encounter
--- OUTSIDE RECORDS SUMMARY | 2024-10-11 19:44 | XMS_ITS | Encounter Summary ---
Author Organization [facility] Address [address] [facility] [place] [address] Care Team Providers Care Rib Cloth Knitter Name Role Phone Sylvain Daniels MD Primary Care Provider +1- [phone] Encounter Details Date Type Department Care Team (Latest Contact Info) Description 05/07/2023 Travel Social History Tobacco Use Types Packs/Day [...] st Contact Info) Description 10/20/2024 8:00 AM LABORER VINEYARD Office Visit [facility] Medical Group - Family Medicine [address] [facility], [facility] [address] [place] [address] Kiana Cole MD [address] [place] [address] 11/28/2024 9:00 AM LABORER VINEYARD Office Visit [facility] Group - Neurology [address] [facility], [place] [phone] Aline Finch MD [address] [facility] [place] [address] 02/10/2025 10:00 AM CDT Office Visit [facility] - Cardiology [address] [facility], [facility] [address] [place] [phone] Curly Lay MD [address] [place] [place] [address] documented as of this encounter Visit Diagnoses Not on filedocumented in this encounter Care Teams Rib Cloth Knitter Relationship Specialty Start Date End Date Sylvain Daniels MD PCP - General Family Medicine 05/10/22 02/14/24 documented as of this encounter
--- OUTSIDE RECORDS SUMMARY | 2024-10-11 19:44 | XMS_ITS | Encounter Summary ---
Author Organization [facility] Address [address] [address] Care Team Providers Care Certified Nursing Attendant Name Role Phone Sylvain Daniels MD Primary Care Provider [phone] Reason for Visit * Reason Comments Altered mental status * Auth/Cert (Routine) Specialty Diagnoses / Procedures Referred By Contac t Referred To Contact Referral ID Status Reason Start Date Expiration Date Visits Re quested Visits Authorized [id number] 1 1 Encounter Details Date Type Department Care Team (Latest Contact Info) Description 01/30/2024 2:00 PM CDT - 01/30/2024 2:30 PM CDT Surgery [facility] - Endoscopy Services [address] [place] [id number] Jeff Ruffin MD [address] [place] [address] [place] [address] ESOPHAGOGASTRODUODENOSCOPY (EGD) WITH PEG PLACEMENT Surgery Details Date/Time Status Location OR Service Patient Class Case Class Case Type Trauma Case? 01/30/2024 2:00 PM Posted [facility] ENDO ENDO 01 Gastroenterology Inpatient Work Ins >24 Hrs to 5 Days Panel 1 Procedure LRB Anes Op Region Wound Class Comments ESOPHAGOGASTRODUODENOSCOPY ( EGD) WITH PEG PLACEMENT N/A MAC Abdomen Clean Contaminated Surgeon Surgeon Role Service Panel Jeff Ruffin MD Primary Gastroenterology 1 documented in this [...] [place] [facility] No 01/24/2024 Education Answer Date [...] Sign Reading Time Taken Comments Blood Pressure 129/77 01/30/2024 1:00 PM CDT Pulse 98 01/30/2024 1:15 PM CDT Temperature 36.9 ??C (98.5 ??F) 01/30/2024 1 2:00 PM CDT Respiratory Rate 30 01/30/2024 1:15 PM CDT Oxygen Saturation 90% 01/30/2024 1:15 PM CDT Inhaled Oxygen Concentration 30% 12:00 AM CDT Weight 121.5 kg (267 lb 13.7 oz) 01/30/2024 3:00 AM CDT Height 193 cm (6' 4 [...] Physician Discharge Summary Patient ID: Raza Vazquez [id number] 63 year old 1960 Admit date: 01/23/2024 Discharge date: 02/15/2024 Admitting Physician: Sherie Beltre MD Discharge Physician: Andrea Zamorano MD Admission Diagnoses: No admission diagnoses are documented for this encounter. Discharge Diagnoses: Brainstem strokes, basilar artery stenosis, acute hypoxemic respiratory failure Admission Condition: serious Discharged Condition: fair Hospital Course: Raza Vazquez is a 63 yom with [...] supine total A x 2, repositioned at [facility], turned towards L side w/ [...] found down at his home by the parts sales manager person he had scheduled to visit his [...] summary. Davon SPT Ascom [phone] * Chun Alexander, Jered - 02/15/2024 1:17 PM CDT Images from [...] or concerns please contact RT at [facility] [id number]. * Christi Torres RCP - 02/15/2024 12:47 [...] found down at his home by the parts sales manager person he had scheduled to visit his [...] Location: Abdomen;Midline;Upper Size (FR): 20 Lot Number: [id number] Procedure Tolerance: Sedated Number of days: 15 [...] QTC Calculation (Bezet) 454 ms Calculated P Alverda 79 degrees Calculated R Alverda 76 degrees Calculated T Alverda -77 degrees Interpretation EKG Normal sinus rhythm [...] Stretcher/Ambulance (02/14/24932) Modified Mervin Score: Preadmission Modified Midway Score: 0 (01/26/24935) Current Modified Midway Score: 5 (02/14/24925) Procedures: Basilar artery??angioplasty 01/23/2024 [...] Wean vent as tolerated Travis Bhat, MSN, CARBON PAPER INTERLEAFER, TIE CUTTER-C, SCRN, CNRN Interventional Vascular Neurology [facility] #[id number] ATTESTATION I have seen and examined the patient with the nurse practitioner. I have re- confirmed the paula elements of the history and performed an examination. I have discussed the patient's care with the nurse practitioner. Pt has been accepted to [facility] and will be transferred today. He remains stable and neurologically improving. We will follow up with him in clinic. 02/15/2024 Sherie Beltre MD Interventional Vascular Neurology [facility] . * Annamarie Bonilla RN - 02/15/2024 10:49 AM CDT Care Coordination Progress Note Contacted the pt's Sister Jenn Mckee Report info.... Dr to TIE CUTTER Ceci Wei: [phone] RN to RN: [phone] Fax d/c orders to: [phone] Anticipated Discharge Date: 02/15/24 Anticipated level of care at discharge: [facility] ([facility]) Anticipated level of care provider: [address], ROOM 104 (room will be available @ 1800 hrs) [place] [address] Transportation at Discharge: Ambulance [facility] [phone] reserved. Construction Technology Instructor from [employer] @ 1700 hrs TRIP #[id number] Payer/Plan Subscriber Name Rel Member # Group # [employer] - [facility] BITA VAZQUEZ* Self [id number] [address] [address] READMISSION RISK SCORE is 17 at 10:50 AM 02/15/2024. Portions of this note have been copied from the medical record, but edited appropriately to accurately reflect the patient's current clinical state. Annamarie Bonilla RN Case Management - ICU 3N & 3S [facility] Ascom: [phone] O: [phone] * Andrea Zamorano MD - 02/15/2024 10:33 AM CDT ICU Progress Note Subjective: No acute events overnight. PSV on 09/18 this AM. Subjective: Filed Vitals: 02/15/24 0830 02/15/24 0842 02/15/24 0845 02/15/24 0900 BP: 118/88 Pulse: 78 84 84 82 Resp: Temp: TempSrc: SpO2: 97% 100% 99% 95% [...] Location: Abdomen;Midline;Upper Size (FR): 20 Lot Number: [id number] Procedure Tolerance: Sedated Number of days: 15 [...] male Age: [age] year old : 1960 [facility]#: [id number] Height: 193 cm (6' 4 ) Weight: 128.5 kg (283 lb 4.7 oz) Body mass index is 34.48 kg/m??. Code Status: Full Code Admit: 01/23/2024 Hospital Day: Attending: Sherie Beltre MD Unit: [facility] 3S ICU Allergies Allergen Reactions ??? Lisinopril Angioedema ??? Pcn [Penicillins] Swelling eyes swelled shut 50 years ago ??? Penicillin V Rash Safety concerns: Choose Restraint type: Non-Violent Non-Violent Restraint Type Soft Wrist - Left (NV): CONTINUED Soft Wrist - Bilateral (NV): CONTINUED Past Medical/surgical History Past Medical History: Diagnosis Date ??? Anemia 01/2018 ??? Asthma ([facility]) ??? Chest congestion 08/05/2020 ??? Confusional arousals 08/05/2020 ??? Controlled type 2 diabetes mellitus without complication, without long-term current use of insulin ([facility]) 09/28/2011 ??? 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 Cough syncope 2017 ??? Daytime sleepiness 08/05/2020 ??? Essential hypertension 01/23/2018 ??? Hyperlipidemia 08/05/2020 ??? Inadequate sleep hygiene 08/05/2020 ??? Morbid obesity with BMI of 40.0-44.9, adult ([facility]) 08/05/2020 ??? Nocturia 08/05/2020 ??? [...] Responds to commands;Spontaneous and Purposeful Right hand team truck driver: Weak Motor Function RUE: Can Overcome Resistance (Weak) Sensation RUE: Normal;No numbness;No tingling Motor Response LUE: Responds to commands;Spontaneous and Purposeful Left hand team truck driver: Weak Motor Function LUE: Moderate Strength Sensation [...] Name 02/02/24 1609 01/27/24 1233 01/23/24 1714 [id number] 28.0* 28.5* 26.6* Gastric Intestinal Orders Placed [...] 0659 02/14/24 0700 - 02/15/24 0659 Shift 5801-2558 8994-1914 24 Hour Total 0288-7360 3249-9096 6744-4301 24 Hour Total INTAKE Tube 864 164 5875 250 250 Enteral 183 940 9837 600 300 900 Shift Total(mL/kg) 700(5.6) 1247(9.7) 2973(23.1) 850(6.6) 300(2.3) 1150(8.9) OUTPUT Urine(mL/kg/hr) 285(0.3) 300(0.3) 1110(0.4) 675(0.7) 450 1125 Shift Total(mL/kg) 285(2.3) 300(2.3) 1110(8.6) 675(5.3) 450(3.5) 1125(8.8) NET 044 559 5913 175 -150 25 Weight (kg) 125 128.5 [...] Location: Abdomen;Midline;Upper Size (FR): 20 Lot Number: [id number] Procedure Tolerance: Sedated Number of days: 15 [...] - 101 100 CO2 - 27 BUN 38* 36* 32* - [...] as accurate as the information entered into [facility]. Be sure to review Orders and MAR for additional information * Christi Torres, PRESSURE CONTROLLER - 02/14/2024 5:48 PM CDT 02/14/24 1623 [...] 4ml/kg ibw. Put back in full support. MD aware. * Annamarie Bonilla RN - 02/14/2024 3:06 PM CDT Care Coordination Progress Note CM notified by Zeina FENTON, the clinical documentation was submitted on Sunday to the incorrect division and they will need to resubmit today 02/13 to LTAC. Escalated to Dr Siegel. Anticipated level of care at discharge: [facility] ([facility]) Anticipated level of care provider: [facility] JOSSY LTRAYMOND-1ST ODELL SCHULTE Anticipated Discharge Date: 02/18/24 Transportation at Discharge: other (TBD) Portions of this note have been copied from the medical record, but edited appropriately to accurately reflect the patient's current clinical state. Annamarie Bonilla RN Case Management - ICU 3N & 3S [facility] Ascom: [phone] O: [id number] * Macho Solis - 02/14/2024 1:48 PM CDT Physical Therapy ICU Treatment Chart reviewed for diagnosis and medical systems review. RN consented for PT. Explained purpose of PT and patient consented to participate in therapy. A??63 year old??male??was admitted with PMH of DM, HTN, alcohol abuse??who presented on 01/23/2024 10:27 AM??with chief complaint of unresponsiveness.??He was found down at his home by the parts sales manager person he had scheduled to visit his [...] this serves as the discharge summary. Davon THOMAS Ascom [phone] * Sherie Beltre MD - 02/14/2024 11:35 AM CDT INTERVENTIONAL STROKE NEUROLOGY PROGRESS NOTE Hospital Day: 22 A 63 year old male was admitted with PMH of DM, HTN, alcohol abuse who presented on 01/23/2024 10:27AM with chief complaint of unresponsiveness. He was found down at his home by the parts sales manager person he had scheduled to visit his [...] Location: Abdomen;Midline;Upper Size (FR): 20 Lot Number: [id number] Procedure Tolerance: Sedated Number of days: 14 [...] QTC Calculation (Bezet) 454 ms Calculated P Alverda 79 degrees Calculated R Alverda 76 degrees Calculated T Alverda -77 degrees Interpretation EKG Normal sinus rhythm [...] Anterior leads Confirmed by JUSTICE PURVIS MD ([id number]) on 01/23/2024 2:35:44 PM Tele: Cardiac Rhythm: [...] Patient would benefit from intensive 3-hour multidisciplinary therapy(05/02/24 0933) This recommendation is made due to ongoing [...] Stretcher/Ambulance (02/14/24932) Modified Mervin Score: Preadmission Modified Midway Score: 0 (01/26/24935) Current Modified Midway Score: 5 (02/14/24925) Procedures: Basilar artery??angioplasty 01/23/2024 [...] Wean vent as tolerated Travis Bhat, MSN, CARBON PAPER INTERLEAFER, TIE CUTTER-C, SCRN, CNRN Interventional Vascular Neurology [facility] #[id number] ATTESTATION I have seen and examined the patient with the nurse practitioner. I have re- confirmed the paula elements of the history and performed an examination. I have discussed the patient's care with the nurse practitioner. No new changes. Continues to make progress. Working with PT/OT/SP. Waiting on LTACH 02/14/2024 Sherie Beltre MD Interventional Vascular Neurology [facility] . * Sloane Caballero, OT - 02/14/2024 10:31 AM CDT Occupational [...] - Right Upper Extremity: Within Normal Limits Retail Office Associate Strength - Right Upper Extremity: 10/19 LUE Assessment: LUE Assessment AROM - Left Upper Extremity: Within Functional Limits PROM - Left Upper Extremity: Within Functional Limits Strength - Left Upper Extremity: Within Functional Limits Tone - Left Upper Extremity: Within Functional Limits Sensation - Left Upper Extremity: Within Normal Limits Retail Office Associate Strength - Left Upper Extremity: WFL Functional [...] % $ O2 DEVICE: Ventilator $ Modified Midway Score Current Modified Midway Score: 5 ASSESSMENT: Pt tolerates session fairly [...] and strength. Pt able to complete AAROM [id number], serial opp, and high-fives. No signs of subluxation noted this date. Stiffness noted to start in elbow, educated RN and pt on necessity of PROM in RUE / RLE to prevent contractures. Travis steady placed in front of pt, pt able to reach and hold onto bar with appropriate team truck driver. Pt completes sit<>stand with MAX A x3, [...] discharge summary. JOSE E AntonR/Boris [phone] * Missy Vazquez, SCARLETT - 02/14/2024 9:34 AM CDT Speech Language Pathology: Chart reviewed. Pt requiring full vent support. Will continue to follow from a distance for appropriateness of PMSV and PO trials if/when he is able to wean from vent and tolerate cuff deflation and trach collar. Missy Carranza MS, CCC - PIGMENT AND LACQUER MIXER 02/14/2024 9:35 AM [phone] * Andrea Zamorano [...] Location: Abdomen;Midline;Upper Size (FR): 20 Lot Number: [id number] Procedure Tolerance: Sedated Number of days: 14 [...] Shift Summary Nursing [facility] 3S ICU Room: 02/13/24 Patient: Raza Vazquez Sex: male Age: [age] year old : 1960 [facility]#: [id number] Height: 193 cm (6' 4 ) Weight: 125 kg (275 lb 9.2 oz) Body mass index is 33.54 kg/m??. Code Status: Full Code Admit: 01/23/2024 Hospital Day: 21 Attending: Sherie Beltre MD Unit: [address] ICU Allergies Allergen Reactions ??? Lisinopril Angioedema ??? Pcn [Penicillins] Swelling eyes swelled shut 50 years ago ??? Penicillin V Rash Safety concerns: Choose Restraint type: Non-Violent Non-Violent Restraint Type Soft Wrist - Left (NV): CONTINUED Soft Wrist - Bilateral (NV): DISCONTINUED Past Medical/surgical History Past Medical History: Diagnosis Date ??? Anemia 01/2018 ??? Asthma ([facility]) ??? Chest congestion 08/05/2020 ??? Confusional arousals 08/05/2020 ??? Controlled type 2 diabetes mellitus without complication, without long-term current use of insulin ([facility]) 09/28/2011 ??? 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 Cough syncope 2017 ??? Daytime sleepiness 08/05/2020 ??? Essential hypertension 01/23/2018 ??? Hyperlipidemia 08/05/2020 ??? Inadequate sleep hygiene 08/05/2020 ??? Morbid obesity with BMI of 40.0-44.9, adult ([facility]) 08/05/2020 ??? Nocturia 08/05/2020 ??? [...] Responds to commands;Spontaneous and Purposeful Right hand team truck driver: Weak Motor Function RUE: Cannot Overcome Resistance Sensation RUE: Unable to Obtain Motor Response LUE: Responds to commands;Spontaneous and Purposeful Left hand team truck driver: Weak Motor Function LUE: Can Overcome Resistance [...] Name 02/02/24 1609 01/27/24 1233 01/23/24 1714 [id number] 28.0* 28.5* 26.6* Gastric Intestinal Orders Placed [...] 0659 02/13/24 0700 - 02/14/24 0659 Shift 0394-9520 4364-6836 24 Hour Total 5714-7372 5938-1448 2977-2300 24 Hour Total INTAKE I.V.(mL/kg/hr) 241.3(0.2) 241.3(0.1) [...] Location: Abdomen;Midline;Upper Size (FR): 20 Lot Number: [id number] Procedure Tolerance: Sedated Number of days: 14 [...] as accurate as the information entered into [employer]. Be sure to review Orders and MAR [...] found down at his home by the parts sales manager person he had scheduled to visit his [...] monitored throughout stable and asymptomatic. BP within parameters.BP taken immediately after standing, negative orthostatic. ASSESSMENT: [...] to Stand: X 3;Maximum Assistance (utilizing Travis Isatu) Stand to Sit: X 3;Maximum Assistance Type [...] - Right Upper Extremity: Within Normal Limits Retail Office Associate Strength - Right Upper Extremity: 10/19 LUE Assessment: LUE Assessment AROM - Left Upper Extremity: Exceptions PROM - Left Upper Extremity: Within Functional Limits Strength - Left Upper Extremity: Exceptions Tone - Left Upper Extremity: Within Functional Limits Sensation - Left Upper Extremity: Within Normal Limits Retail Office Associate Strength - Left Upper Extremity: 12/17 Functional [...] 2 $ O2 DEVICE: Ventilator $ Modified Midway Score Current Modified Midway Score: 5 ASSESSMENT: Pt consented to complete this date's OT treatment session. OT observed and assessed pt's vitals, ROM and strength of B UE, functional transfers and mobility, LB dressing, bed mobility. Pttolerated this date's session well this date. Pt continues to [...] discharge summary. Kerry DORANTESR/L X [phone] * Sherie Beltre MD - 02/13/2024 11:56 AM CDT INTERVENTIONAL STROKE NEUROLOGY PROGRESS NOTE Hospital Day: 21 A 63 year old male was admitted with PMH of DM, HTN, alcohol abuse who presented on 01/23/2024 10:27AM with chief complaint of unresponsiveness. He was found down at his home by the parts sales manager person he had scheduled to visit his [...] Location: Abdomen;Midline;Upper Size (FR): 20 Lot Number: [id number] Procedure Tolerance: Sedated Number of days: 13 [...] QTC Calculation (Bezet) 454 ms Calculated P Alverda 79 degrees Calculated R Alverda 76 degrees Calculated T Alverda -77 degrees Interpretation EKG Normal sinus rhythm [...] Recommended Transportation Method: Stretcher/Ambulance (02/12/24 1200) Modified Midway Score: Preadmission Modified Mervin Score: 0 (01/26/24 0936) Current Modified Midway Score: 5 (02/12/24 115) Procedures: Basilar artery??angioplasty [...] Wean vent as tolerated Travis Bhat, MSN, CARBON PAPER INTERLEAFER, TIE CUTTER-C, SCRN, CNRN Interventional Vascular Neurology [facility] ASCOM #[id number] ATTESTATION I have seen and examined the [...] Beltre MD Interventional Vascular Neurology [facility] . * Travis Dubose RD/HAFSA - 02/13/2024 [...] Location: Abdomen;Midline;Upper Size (FR): 20 Lot Number: [id number] Procedure Tolerance: Sedated Number of days: 13 [...] Radiology Reviewed Assessment: Hospital Day: 21 Raza Vazquez is a 63 yom with [...] AM Critical Care Medicine * Lily Osorio, [facility] - 02/13/2024 5:08 AM CDT Patient is [...] on ASV 100%, +5, 21%) * Ashish aDi RN - 02/12/2024 8:45 PM CDT Problem: [...] male Age: [age] year old : 1960 [facility]#: [id number] Height: 193 cm (6' 4 ) Weight: 125.5 kg (276 lb 10.8 oz) Body mass index is 33.68 kg/m??. Code Status: Full Code Admit: 01/23/2024 Hospital Day: 20 Attending: Sherie Beltre MD Unit: [facility] 3S ICU Allergies Allergen Reactions ??? Lisinopril Angioedema ??? Pcn [Penicillins] Swelling eyes swelled shut 50 years ago ??? Penicillin V Rash Safety concerns: Choose Restraint type: Non-Violent Non-Violent Restraint Type Soft Wrist - Left (NV): CONTINUED Soft Wrist - Bilateral (NV): DISCONTINUED Past Medical/surgical History Past Medical History: Diagnosis Date ??? Anemia 01/2018 ??? Asthma ([facility]) ??? Chest congestion 08/05/2020 ??? Confusional arousals 08/05/2020 ??? Controlled type 2 diabetes mellitus without complication, without long-term current use of insulin ([facility]) 09/28/2011 ??? 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 Cough syncope 2017 ??? Daytime sleepiness 08/05/2020 ??? Essential hypertension 01/23/2018 ??? Hyperlipidemia 08/05/2020 ??? Inadequate sleep hygiene 08/05/2020 ??? Morbid obesity with BMI of 40.0-44.9, adult ([facility]) 08/05/2020 ??? Nocturia 08/05/2020 ??? [...] Responds to commands;Spontaneous and Purposeful Right hand team truck driver: Weak Motor Function RUE: Cannot Overcome Resistance Sensation RUE: Unable to Obtain Motor Response LUE: Responds to commands;Spontaneous and Purposeful Left hand team truck driver: Weak Motor Function LUE: Can Overcome Resistance [...] Name 02/02/24 1609 01/27/24 1233 01/23/24 1714 [id number] 28.0* 28.5* 26.6* Gastric Intestinal Orders Placed [...] 0659 02/12/24 0700 - 02/13/24 0659 Shift 6211-9439 2414-3516 24 Hour Total 4373-0816 3957-6205 2807-9594 24 Hour Total INTAKE I.V.(mL/kg/hr) 49.9(0.1) 149.2(0) Other 50 50 Tube 50 100 250 100 100 Enteral 492 173 7330 600 300 900 Shift Total(mL/kg) 425.9(3.4) 1046(8.3) [...] Location: Abdomen;Midline;Upper Size (FR): 20 Lot Number: [id number] Procedure Tolerance: Sedated Number of days: 13 [...] as accurate as the information entered into [facility]. Be sure to review Orders and MAR [...] found down at his home by the parts sales manager person he had scheduled to visit his [...] to Chair: Total Assistance;X 3;Other (Comment) (to combemelia with RT managing vent) Type of Transfer: [...] Cognition: Attention/concentration-decreased;Follows one step commands;Processing-delayed;Judgement-decreased;Safety awareness- decreased;Memory impairment-intermediate;Memory impairment-short term Attention Span: Attends with cues [...] - Right Upper Extremity: Within Normal Limits Retail Office Associate Strength - Right Upper Extremity: 10/19 LUE Assessment: LUE Assessment AROM - Left Upper Extremity: Within Functional Limits PROM - Left Upper Extremity: Within Functional Limits Strength - Left Upper Extremity: Within Functional Limits Tone - Left Upper Extremity: Within Functional Limits Sensation - Left Upper Extremity: Within Normal Limits Retail Office Associate Strength - Left Upper Extremity: WFL Functional [...] % $ O2 DEVICE: Ventilator $ Modified Midway Score Current Modified Mervin Score: 5 ASSESSMENT: Pt tolerates session well. Pt does not appear to be in any distress throughout. Pt R side remains weak however pt able to lift arm to face AAROM. Pt completes sit<>sprinkling system irrigator travis steady with MAX A x3, pt [...] found down at his home by the parts sales manager person he had scheduled to visit his [...] Location: Abdomen;Midline;Upper Size (FR): 20 Lot Number: [id number] Procedure Tolerance: Sedated Number of days: 12 [...] QTC Calculation (Bezet) 454 ms Calculated P Alverda 79 degrees Calculated R Alverda 76 degrees Calculated T Alverda -77 degrees Interpretation EKG Normal sinus rhythm [...] Discharge Equipment Recommendations: To Be Determined (01/29/24 142) OT Discharge Recommendations: Patient would benefit from [...] would benefit from intensive 3-hour multidisciplinary therapy(02/11/24 1308) This recommendation is made due to ongoing intensive PT functional needs: patient has the need for more than one skilled therapy service;motivated to participate in therapy;patient demonstrates a significant functional decline and would benefit from skilled therapy intervention to restore function;patient has the ability to progress and demonstrate measurable gains as a result of skilled therapy (02/11/24 1305) Recommended Transportation Method: Stretcher/Ambulance (02/11/241416) Modified Mervin Score: Preadmission Modified Mervin Score: 0 (01/26/24 0936) Current Modified Midway Score: 5 (02/11/241416) Procedures: Basilar artery??angioplasty 01/23/2024 PEG 01/30/24 Trach [...] Wean vent as tolerated Travis Bhat, MSN, CARBON PAPER INTERLEAFER, TIE CUTTER-C, SCRN, CNRN Interventional Vascular Neurology [facility] ASCOM #[id number] ATTESTATION I have seen and examined the patient with the nurse practitioner. I have re- confirmed the paula elements of the history and performed an examination. I have discussed the patient's care with the nurse practitioner. Sustained improvement. Denied placement to LTAC by insurance. Appeal pending. COntinue to monitor for improvement in ventilation. 02/12/2024 Sherie Beltre MD Interventional Vascular Neurology [facility] . * Annamarie Bonilla RN - 02/12/2024 10:58 AM CDT Care Coordination Progress Note met with Dr Siegel and discussed DC plans, [facility] has submitted for auth. Anticipated level of care at discharge: [facility] ([facility]) Anticipated level of care provider: [facility] JOSSY LTACH-1ST ODELL SCHULTE Anticipated Discharge Date: 02/15/24 Transportation at Discharge: other (TBD) Portions of this note have been copied from the medical record, but edited appropriately to accurately reflect the patient's current clinical state. Annamarie Bonilla RN Case Management - ICU 3N & 3S [facility] Ascom: [phone] O: [phone] * Chuy Siegel DO - 02/12/2024 9:03 [...] Location: Abdomen;Midline;Upper Size (FR): 20 Lot Number: [id number] Procedure Tolerance: Sedated Number of days: 12 [...] CL - - - - - CO2 23 24 26 BUN 27* 31* 29* 38* [...] nursing assessment (swollen) Estimated Energy Needs: KCAL: 8231-4650 kcal/day (15-18 kcal/kg BW) / 2057 kcal/day [...] will be consistent with estimated needs Description: aRza Hamauri Nutrition Goal: Enteral/Parenteral Nutrition prescription will be [...] found down at his home by the parts sales manager person he had scheduled to visit his [...] to move and hold against gravity, antelmo team truck driver equal WFL. Sensation: Sensation - Right Lower [...] decline with impairments listed below and increased [id number] with new trach on a vent. Pt billed as re-eval as since the initial evaluation he has had new trach with both new and progressive acute infarcts noted on CT's. Pt remains a good candidate for acute rehab, see recommendations. Pt lateral transferred to [facility] at end of session to work on [...] Davon SPT Ascom [phone] * Annamarie Bonilla, RN - 02/11/2024 12:40 PM CDT Care Coordination Progress Note CM met with Dr Siegel and discussed POC, ICU LOS and DC plans: asked about readiness for LTAC, per Dr Siegel the pt is ready. CM notified Zeina with [employer] to submit for auth. PC from Diane Mckee (Sister) updated her on the status. Anticipated level of care at discharge: [facility] (LTAC) Anticipated level of care provider: [facility]TE Anticipated Discharge Date: 02/12/24 Transportation at Discharge: other (TBD) Portions of this note have been copied from the medical record, but edited appropriately to accurately reflect the patient's current clinical state. Annamarie Bonilla RN Case Management - ICU 3N & 3S [facility] Ascom: [phone] O: [phone] * Sherie Beltre MD - 02/11/2024 11:35 AM CDT INTERVENTIONAL STROKE NEUROLOGY PROGRESS NOTE Hospital Day: 19 A 63 year old male was admitted with PMH of DM, HTN, alcohol abuse who presented on 01/23/2024 10:27AM with chief complaint of unresponsiveness. He was found down at his home by the parts sales manager person he had scheduled to visit his [...] Location: Abdomen;Midline;Upper Size (FR): 20 Lot Number: [id number] Procedure Tolerance: Sedated Number of days: 11 [...] QTC Calculation (Bezet) 454 ms Calculated P Alverda 79 degrees Calculated R Alverda 76 degrees Calculated T Alverda -77 degrees Interpretation EKG Normal sinus rhythm [...] Recommended Transportation Method: Stretcher/Ambulance (02/10/24 1300) Modified Midway Score: Preadmission Modified Mervin Score: 0 (01/26/24 0936) Current Modified Midway Score: 5 (02/01/24 1405) Procedures: Basilar artery??angioplasty [...] Wean vent as tolerated Travis Bhat, MSN, CARBON PAPER INTERLEAFER, TIE CUTTER-C, SCRN, CNRN Interventional Vascular Neurology [facility] ASCOM #[id number] ATTESTATION I have seen and [...] 02/11/2024 Sherie Beltre MD Interventional Vascular Neurology [facility] * Cony Tapia, PIGMENT AND LACQUER MIXER - 02/11/2024 10:34 AM CDT Speech Pathology: ST following per trach order set Pt remains on vent support and not appropriate for ST/PMSV trials at this time. Will continue to follow as appropriate. CHARI JasmineS, CCC-PIGMENT AND LACQUER MIXER Ext. [phone] 02/11/2024 * Travis Dubose, GE[place]/LDN [...] 3.8 CHLORIDE 113* 112* 110* CO2 23 23 24 BUN 31* 29* 33* CREATININE [...] 190 - 02/10/24 0702/10/24 07 - 02/10/24 1900 02/10/24 190 - 02/11/24 [...] Location: Abdomen;Midline;Upper Size (FR): 20 Lot Number: [id number] Procedure Tolerance: Sedated Number of days: 11 [...] breaks $ O2 DEVICE: Ventilator $ Modified Midway Score Current Modified Midway Score: 5 ASSESSMENT: Pt is agreeable to [...] found down at his home by the parts sales manager person he had scheduled to visit his [...] Location: Abdomen;Midline;Upper Size (FR): 20 Lot Number: [id number] Procedure Tolerance: Sedated Number of days: 10 [...] 110* 107 104 - 101 100 CO2 - BUN 29* 33* 37* 38* - 17 [...] QTC Calculation (Bezet) 454 ms Calculated P Alverda 79 degrees Calculated R Alverda 76 degrees Calculated T Alverda -77 degrees Interpretation EKG Normal sinus rhythm ST & T wave abnormality, consider inferolateral ischemia Abnormal ECG When compared with ECG of 12-OCT-2022 16:28, Premature ventricular complexes are no longer Present Non-specific change in ST segment in Anterior leads Inverted T waves have replaced nonspecific T wave abnormality in Inferior leads T wave amplitude has increased in Anterior leads Confirmed by JUSTICE PUVRIS MD ([id number]) on 01/23/2024 2:35:44 PM Tele: [...] Recommended Transportation Method: Stretcher/Ambulance (02/01/24 1405) Modified Midway Score: Preadmission Modified Midway Score: 0 (01/26/24 0936) Current Modified Midway Score: 5 (02/01/24 1405) Procedures: Basilar artery??angioplasty [...] 02/10/2024 Sherie Beltre MD Interventional Vascular Neurology [facility] * Chuy Siegel DO - 02/10/2024 8:41 AM CDT ICU Progress [...] Placement Date/Time: 02/06/24 1316 Person who placed: ZAHCARY Christine Fecal Incontinence Device: With balloon Number of days: 3 Enteral - Percutaneous Endoscopic Gastrostomy Abdomen;Midline;Upper (Active) Placement Date/Time: 01/30/24 1514 Placed by: Dr. Ruffin Type: Percutaneous Endoscopic Gastrostomy Tube Location: Abdomen;Midline;Upper Size (FR): 20 Lot Number: [id number] Procedure Tolerance: Sedated Number of days: 10 [...] AM Critical Care Medicine * Christi Colbert [facility] - 02/10/2024 3:53 AM CDT Patient is [...] found down at his home by the parts sales manager person he had scheduled to visit his [...] Location: Abdomen;Midline;Upper Size (FR): 20 Lot Number: [id number] Procedure Tolerance: Sedated Number of days: 9 [...] Ht 1.93 m (6' 4 ) Wt 122.5 kg (270 lb) SpO2 99% Wt Readings from [...] QTC Calculation (Bezet) 454 ms Calculated P Alverda 79 degrees Calculated R Alverda 76 degrees Calculated T Alverda -77 degrees Interpretation EKG Normal sinus rhythm [...] 140) Recommended Transportation Method: Stretcher/Ambulance (02/01/241404) Modified Mervin Score: Preadmission Modified Midway Score: 0 (01/26/24 0936) Current Modified Midway Score: 5 (02/01/241404) Procedures: Basilar artery??angioplasty 01/23/2024 [...] 02/09/2024 Sherie Beltre MD Interventional Vascular Neurology [facility] * Brennan Minor, RN - 02/09/2024 10:00 [...] Location: Abdomen;Midline;Upper Size (FR): 20 Lot Number: [id number] Procedure Tolerance: Sedated Number of days: 9 [...] MRI. Anticipated level of care at discharge: [facility] (LTAC) Anticipated [facility] care provider[facility] Anticipated Discharge Date: 02/12/24 Transportation at Discharge: other (TBD) Portions of this note have been copied from the medical record, but edited appropriately to accurately reflect the patient's current clinical state. Annamarie Bonilla RN Case Management - ICU 3N & 3S [facility] Ascom: [phone] O: [phone] * Sherie Beltre MD - 02/08/2024 9:29 AM CDT INTERVENTIONAL STROKE NEUROLOGY PROGRESS NOTE Hospital Day: 16 A 63 year old male was admitted with PMH of DM, HTN, alcohol abuse who presented on 01/23/2024 10:27AM with chief complaint of unresponsiveness. He was found down at his home by the parts sales manager person he had scheduled to visit his [...] Location: Abdomen;Midline;Upper Size (FR): 20 Lot Number: [id number] Procedure Tolerance: Sedated Number of days: 8 [...] 103 103 - 101 100 102 CO2 - BUN 38* 40* 38* - 17 [...] QTC Calculation (Bezet) 454 ms Calculated P Alverda 79 degrees Calculated R Alverda 76 degrees Calculated T Alverda -77 degrees Interpretation EKG Normal sinus rhythm [...] Discharge Equipment Recommendations: To Be Determined (01/29/24 9563) OT Discharge Recommendations: Patient would benefit from [...] Stretcher/Ambulance (02/01/241404) Modified Mervin Score: Preadmission Modified Midway Score: 0 (01/26/24 0936) Current Modified Midway Score: 5 (02/01/241404) Procedures: Basilar artery??angioplasty 01/23/2024 [...] management. - Imaging reviewed Pricila Harrison, MSN, CARBON PAPER INTERLEAFER, AGNP-BC Interventional Vascular Neurology [facility] Office: [phone] ASCOM [id number] ATTESTATION I have seen and [...] 02/08/2024 Sherie Beltre MD Interventional Vascular Neurology [facility] * Chuy Siegel DO - 02/08/2024 8:59 [...] Location: Abdomen;Midline;Upper Size (FR): 20 Lot Number: [id number] Procedure Tolerance: Sedated Number of days: 8 [...] Sedation weaned. Following simple commands 01/24: Extubated 4/14: Worsening encephalopathy. cEEG initiated. Started on keppra. [...] teaching or in procedures. Chuy Siegel DO 02/08/24 8:59 AM Critical Care Medicine [...] 4.1 4.3 CHLORIDE 104 103 103 CO2 23 24 BUN 38* 40* 38* CREATININE 0.95 [...] nursing assessment (swollen) Estimated Energy Needs: KCAL: 0945-2230 kcal/day (15-18 kcal/kg BW) / 2406 kcal/day ([place]) Protein (g): 138-184 g [...] 02/06/24 1900 02/06/24 190 - 02/07/24 0702/07/24 07 - 02/07/24 1635 Requested LDAs do not [...] Location: Abdomen;Midline;Upper Size (FR): 20 Lot Number: [id number] Procedure Tolerance: Sedated Number of days: 8 [...] time. Anticipated level of care at discharge: [facility] (LTAC) Anticipated level of care provider: [facility] Anticipated Discharge Date: 02/12/24 Transportation at Discharge: other (TBD) Portions of this note have been copied from the medical record, but edited appropriately to accurately reflect the patient's current clinical state. Annamarie Bonilla RN Case Management - ICU 3N & 3S [facility] Ascom: [phone] O: [phone] * Sherie Beltre MD - 02/07/2024 11:00 AM CDT INTERVENTIONAL STROKE NEUROLOGY PROGRESS NOTE Hospital Day: 15 A 63 year old male was admitted with PMH of DM, HTN, alcohol abuse who presented on 01/23/2024 10:27AM with chief complaint of unresponsiveness. He was found down at his home by the parts sales manager person he had scheduled to visit his [...] Location: Abdomen;Midline;Upper Size (FR): 20 Lot Number: [id number] Procedure Tolerance: Sedated Number of days: 7 [...] QTC Calculation (Bezet) 454 ms Calculated P Alverda 79 degrees Calculated R Alverda 76 degrees Calculated T Alverda -77 degrees Interpretation EKG Normal sinus rhythm [...] Anterior leads Confirmed by JUSTICE PURVIS MD ([id number]) on 01/23/2024 2:35:44 PM Tele: Cardiac Rhythm: [...] Discharge Equipment Recommendations: To Be Determined (01/29/24 1901) OT Discharge Recommendations: Patient would benefit from [...] (02/01/24 140) Modified Mervin Score: Preadmission Modified Midway Score: 0 (01/26/24 0936) Current Modified Midway Score: 5 (02/01/24 1405) Procedures: Basilar artery??angioplasty [...] 02/07/2024 Sherie Beltre MD Interventional Vascular Neurology [facility] * Pricila Harrison, ROSE-BUNDLE TIER - 02/07/2024 9:51 AM CDT INTERVENTIONAL STROKE NEUROLOGY PROGRESS NOTE Hospital Day: 15 A 63 year old male was admitted with PMH of DM, HTN, alcohol abuse who presented on 01/23/2024 10:27AM with chief complaint of unresponsiveness. He was found down at his home by the parts sales manager person he had scheduled to visit his [...] Location: Abdomen;Midline;Upper Size (FR): 20 Lot Number: [id number] Procedure Tolerance: Sedated Number of days: 7 [...] QTC Calculation (Bezet) 454 ms Calculated P Alverda 79 degrees Calculated R Alverda 76 degrees Calculated T Alverda -77 degrees Interpretation EKG Normal sinus rhythm [...] (02/01/24 1405) Recommended Transportation Method: Stretcher/Ambulance (02/01/24 1400) Modified Midway Score: Preadmission Modified Mervin Score: 0 (01/26/24 0936) Current Modified Midway Score: 5 (02/01/24 1405) Procedures: Basilar artery??angioplasty [...] - Repeat CTH today Pricila Harrison, MSN, CARBON PAPER INTERLEAFER, AGNP- Interventional Vascular Neurology [facility] Office: [phone] ASCOM [id number] * Missy Vazquez PIGMENT AND LACQUER MIXER - 02/07/2024 9:08 AM CDT Speech Language Pathology: Chart reviewed. Pt continues on mechanical ventilation at this time and is not appropriate for ST/PO. ST will continue to follow and will initiate evaluation as appropriate. Missy Carranza MS, CCC - PIGMENT AND LACQUER MIXER 02/07/2024 9:09 AM [phone] * Jason Shelby, PharmD - 02/07/2024 8:46 AM CDT [facility] Pharmacy Clinical Services IV-PO [...] be changed to the oral/enteral formulation. Jason Shelby PharmD 02/07/2024 8:46 AM. * Travis Dubose, RD/LDN [...] per nutrition guidelines. ASCOM [phone] * Juliet Huertas, PRESSURE CONTROLLER - 02/07/2024 4:54 AM CDT Mr. Javier [...] Location: Abdomen;Midline;Upper Size (FR): 20 Lot Number: [id number] Procedure Tolerance: Sedated Number of days: 7 [...] AM CDT Care Coordination Progress Note This Credentialing Manager received a PC from Diane Mckee (Sister), regarding the next LOC, I discussed LTAC and explained this is a stepping stone, it was not a facility he would live at. CM met with Dr Jacome and discussed the patient's the POC, ICU LOS and anticipated DC needs. Anticipated level of care at discharge: [facility] Acute [facility] (LTAC) Anticipated level of care provider: [facility] Anticipated Discharge Date: 02/12/24 Transportation at Discharge: other (TBD) Portions of this note have been copied from the medical record, but edited appropriately to accurately reflect the patient's current clinical state. Annamarie Bonilla RN Case Management - ICU 3N & 3S [facility] Ascom: [phone] O: [phone] * Christos Montgomery, Social Worker Health Services - 02/06/2024 11:03 AM CDT VANCOMYCIN MONITORING [...] Yes ; [] No Christos Montgomery, Student Physicist [employer] * Sherie Beltre MD - 02/06/2024 9:49 AM CDT INTERVENTIONAL STROKE NEUROLOGY PROGRESS NOTE Hospital Day: 14 A 63 year old male was admitted with PMH of DM, HTN, alcohol abuse who presented on 01/23/2024 10:27AM with chief complaint of unresponsiveness. He was found down at his home by the parts sales manager person he had scheduled to visit his [...] Location: Abdomen;Midline;Upper Size (FR): 20 Lot Number: [id number] Procedure Tolerance: Sedated Number of days: 6 [...] 170) Pupil Size Left (MM): 4.9 (01/23/24 1700) Pupil Size Right (MM): 2.38 (01/23/241699) Current: NPI Left: 0.9 (02/02/240) NPI Right: 4.5 (02/02/24399) Pupil Size Left [...] QTC Calculation (Bezet) 454 ms Calculated P Alverda 79 degrees Calculated R Alverda 76 degrees Calculated T Alverda -77 degrees Interpretation EKG Normal sinus rhythm [...] Recommended Transportation Method: Stretcher/Ambulance (02/01/24 140) Modified Midway Score: Preadmission Modified Midway Score: 0 (01/26/24 0936) Current Modified Midway Score: 5 (02/01/24 140) Procedures: Basilar artery??angioplasty [...] ICU for medical management. Pricila Harrison, MSN, CARBON PAPER INTERLEAFER, AGNP- Interventional Vascular Neurology [facility] Office: [phone] ASCOM 5411 ATTESTATION I have seen and [...] 02/06/2024 Sherie Beltre MD Interventional Vascular Neurology [facility] * Travis Dubose, RD/LDN - 02/06/2024 9:18 [...] and concerns resolved. No complications during procedure. Cushman protocol tracer completed. Will continue toassess. * [...] Case Management - ICU 3N & 3S [facility] Ascom: [phone] O: [phone] * Sherie Beltre MD - 02/05/2024 10:48 AM CDT INTERVENTIONAL STROKE NEUROLOGY PROGRESS NOTE Hospital Day: 13 A 63 year old male was admitted with H of DM, HTN, alcohol abuse who presented on 01/23/2024 10:27AM with chief complaint of unresponsiveness. He was found down at his home by the parts sales manager person he had scheduled to visit his [...] Location: Abdomen;Midline;Upper Size (FR): 20 Lot Number: [id number] Procedure Tolerance: Sedated Number of days: 5 [...] QTC Calculation (Bezet) 454 ms Calculated P Alverda 79 degrees Calculated R Alverda 76 degrees Calculated T Alverda -77 degrees Interpretation EKG Normal sinus rhythm [...] Discharge Equipment Recommendations: To Be Determined (01/29/24 6347) OT Discharge Recommendations: Patient would benefit from [...] (02/01/241404) Recommended Transportation Method: Stretcher/Ambulance (02/01/241404) Modified Midway Score: Preadmission Modified Midway Score: 0 (01/26/24 0936) Current Modified Mervin [...] Trach placed this AM. Pricila Harrison, MSN, CARBON PAPER INTERLEAFER, AGNP- Interventional Vascular Neurology [facility] Office: [phone] ASCOM [id number] ATTESTATION I have seen and examined the [...] 02/05/2024 Sherie Beltre MD Interventional Vascular Neurology [facility] * Sejal Bautista RCP - 02/05/2024 9:06 AM CDT Patient trached at 0800 with [address] [place]. * Travis Dubose RD/LDN - 02/05/2024 8:09 AM CDT Nutrition Re-Assessment [...] nursing assessment (swollen) Estimated Energy Needs: KCAL: 7988-3673 kcal/day (11-14 kcal/kg BW) (vent/obesity) Protein (g): [...] Location: Abdomen;Midline;Upper Size (FR): 20 Lot Number: [id number] Procedure Tolerance: Sedated Number of days: 5 [...] are avoided Outcome: Progressing * Travis Dubose RD/HAFSA - 02/04/2024 1:47 PM CDT CLINICAL NUTRITION [...] Active (per nursing documentation) Estimated Needs: KCAL: 2087-1636 kcal/day (11-14 kcal/kg BW) (vent/obesity) Protein (g): [...] found down at his home by the parts sales manager person he had scheduled to visit his [...] Location: Abdomen;Midline;Upper Size (FR): 20 Lot Number: [id number] Procedure Tolerance: Sedated Number of days: 4 [...] QTC Calculation (Bezet) 454 ms Calculated P Alverda 79 degrees Calculated R Alverda 76 degrees Calculated T Alverda -77 degrees Interpretation EKG Normal sinus rhythm [...] Recommended Transportation Method: Stretcher/Ambulance (02/01/24 140) Modified Midway Score: Preadmission Modified Mervin Score: 0 (01/26/24 0936) Current Modified Midway Score: 5 (02/01/24 1405) Procedures: Basilar artery??angioplasty [...] medical management. Awaiting trach. Pricila Harrison, MSN, CARBON PAPER INTERLEAFER, AGNP- Interventional Vascular Neurology [facility] Office: [phone] ASCOM 5411 ATTESTATION I have seen and [...] 02/04/2024 Sherie Beltre MD Interventional Vascular Neurology [facility] * Elina Chen OT - 02/04/2024 12:24 [...] Location: Abdomen;Midline;Upper Size (FR): 20 Lot Number: [id number] Procedure Tolerance: Sedated Number of days: 4 [...] ST/PO. ST to follow. Joanna Berg MS, CCC-PIGMENT AND LACQUER MIXER 02/04/2024 8:17 AM [phone] * Christos Sheikh RCP - 02/04/2024 4:24 AM CDT [...] found down at his home by the parts sales manager person he had scheduled to visit his [...] Location: Abdomen;Midline;Upper Size (FR): 20 Lot Number: [id number] Procedure Tolerance: Sedated Number of days: 3 [...] QTC Calculation (Bezet) 454 ms Calculated P Alverda 79 degrees Calculated R Alverda 76 degrees Calculated T Alverda -77 degrees Interpretation EKG Normal sinus rhythm [...] Anterior leads Confirmed by JUSTICE PURVIS MD ([id number]) on 01/23/2024 2:35:44 PM Tele: Cardiac Rhythm: [...] Discharge Equipment Recommendations: To Be Determined (01/29/24 5685) OT Discharge Recommendations: Patient would benefit from [...] (02/01/24 1405) Recommended Transportation Method: Stretcher/Ambulance (02/01/24 1409) Modified Mervin Score: Preadmission Modified Mervin Score: [...] medical management. Awaiting trach. Travis Bhat, MSN, CARBON PAPER INTERLEAFER, TIE CUTTER-C, SCRN, CNRN Interventional Vascular Neurology [facility] ASCOM #[id number] ATTESTATION I have seen and examined the [...] ? Yessenia Kerr MD Interventional Vascular Neurology [facility] Pager- [phone] Nurse Practitioner (ASCOM 5411) ?? * Chuy [...] Location: Abdomen;Midline;Upper Size (FR): 20 Lot Number: [id number] Procedure Tolerance: Sedated Number of days: 3 [...] Placed by: Dr. Ruffin Type: Percutaneous Endoscopic GastrostomyTube Location: Abdomen;Midline;Upper Size (FR): 20 Lot Number: [id number] Procedure Tolerance: Sedated Number of days: 2 [...] found down at his home by the parts sales manager person he had scheduled to visit his [...] Location: Abdomen;Midline;Upper Size (FR): 20 Lot Number: [id number] Procedure Tolerance: Sedated Number of days: 2 [...] QTC Calculation (Bezet) 454 ms Calculated P Alverda 79 degrees Calculated R Alverda 76 degrees Calculated T Alverda -77 degrees Interpretation EKG Normal sinus rhythm [...] Discharge Equipment Recommendations: To Be Determined (01/29/24 5904) OT Discharge Recommendations: Patient would benefit from intensive 3-hour multidisciplinary therapy(02/01/24 0812) This recommendation is made due to ongoing [...] Stretcher/Ambulance (02/01/241404) Modified Mervin Score: Preadmission Modified Midway Score: 0 (01/26/24 0936) Current Modified Midway Score: 5 (02/01/241404) Procedures: Basilar artery??angioplasty 01/23/2024 [...] Labs every 12 hours. Travis Bhat, MSN, CARBON PAPER INTERLEAFER, TIE CUTTER-C, SCRN, CNRN Interventional Vascular Neurology [facility] ASCOM #[id number] ?? ATTESTATION I have seen and examined [...] trached. Yessenia Kerr MD Interventional Vascular Neurology [facility] Pager- [phone] Nurse Practitioner (ASCOM 5411) ? * Christi Torres RCP - 02/02/2024 9:33 AM CDT Noninvasive ventilation order has been verified will continue to assess. Orders as follow CPAP +5 * Rosalee Reynaga RN - 02/02/2024 12:59 AM CDT Problem: Skin Integrity Goal: Skin integrity is maintained or improved Outcome: Progressing Note: RZAA VAZQUEZ will have no worsening or new [...] found down at his home by the parts sales manager person he had scheduled to visit his [...] Location: Abdomen;Midline;Upper Size (FR): 20 Lot Number: [id number] Procedure Tolerance: Sedated Number of days: 2 [...] QTC Calculation (Bezet) 454 ms Calculated P Alverda 79 degrees Calculated R Alverda 76 degrees Calculated T Alverda -77 degrees Interpretation EKG Normal sinus rhythm [...] Discharge Equipment Recommendations: To Be Determined (01/29/24 142) OT Discharge Recommendations: Patient would benefit from [...] (02/01/241404) Recommended Transportation Method: Stretcher/Ambulance (02/01/241404) Modified Midway Score: Preadmission Modified Midway Score: 0 (01/26/24 0936) Current Modified Midway Score: 5 (04/19/24 1405) Procedures: Basilar artery??angioplasty [...] hours. Yessenia Kerr MD Interventional Vascular Neurology?? [facility] Pager- [phone] Nurse Practitioner (ASCOM 6826) ? * Bianca Emery RN - 02/01/2024 [...] level for patient Outcome: Completed * Luz Moser, PT - 02/01/2024 4:10 PM CDT Physical Therapy Treatment PT orders received. Chart reviewed for diagnosis and medical systems review. Nursing consented for PT. Explained purpose of PT and patient consented to participate in therapy. A??63 year old??male??was admitted with PMH of DM, HTN, alcohol abuse??who presented on 01/23/2024 10:27 AM??with chief complaint of unresponsiveness.??He was found down at his home by the parts sales manager person he had scheduled to visit his [...] sitting EOB SBP 80 (MAP 64) Modified Mervin Score: Current Modified Midway Score: 5 ASSESSMENT: Pt presents more drowsiness [...] as ordered . Tolerated well. * Leigh Gonzalez OT - 02/01/2024 3:30 PM CDT Occupational [...] - Right Upper Extremity: Within Normal Limits Retail Office Associate Strength - Right Upper Extremity: 10/19 LUE Assessment: LUE Assessment AROM - Left Upper Extremity: Exceptions PROM - Left Upper Extremity: Within Functional Limits Strength - Left Upper Extremity: Exceptions Tone - Left Upper Extremity: Within Functional Limits Sensation - Left Upper Extremity: Within Normal Limits Retail Office Associate Strength - Left Upper Extremity: 5 Functional [...] breaks $ O2 DEVICE: Room Air Modified Midway Score Current Modified Midway Score: 5 ASSESSMENT: Pt consented to complete [...] and intact pre and post visit. RN, HD, notified of patient's performance/location end of session. [...] at a later time/date. Linda Tamez MS [facility]-PIGMENT AND LACQUER MIXER [phone] * Jeff Ruffin MD - 02/01/2024 [...] [phone] Recent Labs Component Name 02/01/24 1125 01/31/24225601/31/24 1116 01/30/24 0429 SODIUM 137 136 137 [...] results for input(s): MAGMGDL in the last 04424 hours. Recent Labs Component Name 02/01/24 1125 01/31/24225601/31/24 1319 PHOS 4.0 4.2 3.8 No results for input(s): AMYLASE in the last 11725 hours. No results for input(s): LIPASE in the last 95816 hours. Recent Labs Component Name 01/23/24 1039 [...] [facility] [phone] * Annamarie Bonilla RN - 02/01/2024 9:39 AM CDT Care Coordination Progress Note ?? 01/23/2024 Pt BIBEMS from home, he was found unresponsive by an parts sales manager. Unknown LKW. Pt was found covered in [...] 01/24: Extubated 01/27: okay to transfer to [address] [place] [address] 01/29: s/p EGD with PEG placement. Pt remains in ICU room 343 01/31- Received a PC from christi Vazquez, the pt's dgtr requesting Medicaid. I explained the process, I would submit a referral to [employer] for a screening. This CM sent an email to the [facility] team with this request. Anticipated level of care at discharge: Acute Rehab Facility Anticipated level of care provider: [facility] Anticipated Discharge Date: 02/07/24 Transportation at Discharge: other (TBD) Orientation Level: Disoriented to Situation;Disoriented to Time;Oriented to Person;Oriented to Place Family Support (Name and Phone): Extended Emergency Contact Information Primary Emergency Contact: Christi Vazquez Mobile Relation: Daughter Secondary Emergency Contact: Carol Vazquez [facility] Relation: Sister READMISSION RISK SCORE is 17 at 10:44 AM 02/01/2024. Portions of this note have been copied from the medical record, but edited appropriately to accurately reflect the patient's current clinical state. Annamarie Bonilla RN Case Management - ICU 3N & 3S [facility] Ascom: [phone] O: [phone] * Marlyn Garza, RT(R) - 02/01/2024 8:47 AM CDT Noninvasive ventilation order has been verified will continue to assess. Orders as follow ?? CPAP 5 cmH2O * Linda Junior, RD/LDN - 02/01/2024 8:12 AM CDT Nutrition Re-Assessment [...] Phos 4.2. K 4.1. Messaged MD and TIE CUTTER about increasing TF slowly to 60 ml/hr. No BM since 01/27. PIGMENT AND LACQUER MIXER recommendations NPO. Assessment: Med/Surg History and Clinical [...] not displayed. Recent Labs Component Name 01/31/24225601/31/24 13101/31/24 1116 MAGNESIUM 1.7 1.3* 1.4* Recent Labs Component Name 01/31/24225601/31/24 1319 01/30/24 0429 PHOS 4.2 3.8 3.7 Medications noted. Skin/Wound: Exceptions per nursing assessment (swollen) Estimated Energy Needs: KCAL: 0739-8837 kcal/day (25-30 kcal/kg IBW) Protein (g): 137-165 [...] male Age: [age] year old : 1960 [facility]#: [id number] Height: 193 cm (6' 4 ) Weight: 130.5 kg (287 lb 11.2 oz) Body mass index is 35.02 kg/m??. Code Status: Full Code Admit: 01/23/2024 Hospital Day: 8 Attending: Yessenia Kerr MD Unit: [facility] 3S ICU Allergies Allergen Reactions ??? Lisinopril Angioedema ??? Pcn [Penicillins] Swelling eyes swelled shut 50 years ago ??? Penicillin V Rash Safety concerns: Choose Restraint type: Non-Violent Non-Violent Restraint Type Soft Wrist - Bilateral (NV): DISCONTINUED Past Medical/surgical History Past Medical History: Diagnosis Date ??? Anemia 01/2018 ??? Asthma ([facility]) ??? Chest congestion 08/05/2020 ??? Confusional arousals 08/05/2020 ??? Controlled type 2 diabetes mellitus without complication, without long-term current use of insulin ([facility]) 09/28/2011 ??? 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 Cough syncope 2017 ??? Daytime sleepiness 08/05/2020 ??? Essential hypertension 01/23/2018 ??? Hyperlipidemia 08/05/2020 ??? Inadequate sleep hygiene 08/05/2020 ??? Morbid obesity with BMI of 40.0-44.9, adult ([facility]) 08/05/2020 ??? Nocturia 08/05/2020 ??? [...] -- 01/31/24 1315 -- 96 31 -- 04/18/24 1300 -- 97 (!) 34 132/94 Neurological [...] 0659 01/31/24 0700 - 02/01/24 0659 Shift 9609-9381 6505-7848 24 Hour Total 6232-1375 1507-2021 0610-3642 24 Hour Total INTAKE I.V.(mL/kg/hr) 212(0.2) 212(0.1) [...] Location: Abdomen;Midline;Upper Size (FR): 20 Lot Number: [id number] Procedure Tolerance: Sedated Number of days: 1 [...] as accurate as the information entered into [employer]. Be sure to review Orders and MAR [...] results for input(s): MAGMGDL in the last 84599 hours. Recent Labs Component Name 01/31/24 1319 01/30/24 0429 01/29/24 0259 PHOS 3.8 3.7 4.1 No results for input(s): AMYLASE in the last 88543 hours. No results for input(s): LIPASE in the last 71175 hours. Recent Labs Component Name 01/23/24 1039 [...] Jeff Ruffin MD [facility] [phone] * Jacqueline Vasquez - 01/31/2024 3:29 PM [...] (HCC) 09/28/2011 ??? 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 [...] Pt s/p PEG placement yesterday. [facility] significant for minimal to absent [...] oral debridement solution, mouth wash, Yankauer suction, Fishki oral suction kit 3. All secretions (dried [...] Thank you for this referral. Jacqueline Suh PIGMENT AND LACQUER MIXER Graduate Clinician [phone] * Leigh Gonzalez OT [...] - Right Upper Extremity: Within Normal Limits Retail Office Associate Strength - Right Upper Extremity: 1/5 LUE Assessment: LUE Assessment AROM - Left Upper Extremity: Within Functional Limits PROM - Left Upper Extremity: Within Functional Limits Strength - Left Upper Extremity: Exceptions Tone - Left Upper Extremity: Within Functional Limits Sensation - Left Upper Extremity: Within Normal Limits Retail Office Associate Strength - Left Upper Extremity: 5 Functional [...] breaks $ O2 DEVICE: Room Air Modified Midway Score Current Modified Midway Score: 5 ASSESSMENT: Pt consented to complete this date's OT treatment session. OT observed and assessed pt's vitals, ROM and strength of B UE, functional transfers, hygiene/grooming, bed mobility. While semi-villegas's, pt participated in AAROM of B UE and LE as preparatory [facility] Pt demo decreased strength and tone within [...] found down at his home by the parts sales manager person he had scheduled to visit his [...] Location: Abdomen;Midline;Upper Size (FR): 20 Lot Number: [id number] Procedure Tolerance: Sedated Number of days: 0 [...] QTC Calculation (Bezet) 454 ms Calculated P Alverda 79 degrees Calculated R Alverda 76 degrees Calculated T Alverda -77 degrees Interpretation EKG Normal sinus rhythm [...] would benefit from intensive 3-hour multidisciplinary therapy(01/29/24 0136) This recommendation is made due to ongoing intensive PT functional needs: patient has the need for more than one skilled therapy service;patient demonstrates a significant functional decline and would benefit from skilled therapy intervention to restore function;patient has the ability to progress and demonstrate measurable gains as a result of skilled therapy (01/29/24 1420) Recommended Transportation Method: Stretcher/Ambulance (01/30/24 1201) Modified Midway Score: Preadmission Modified Mervin Score: 0 (01/26/24 0936) Current Modified Midway Score: 5 (01/31/24 1200) Procedures: Basilar artery??angioplasty [...] with the following disciplines: Stroke neurology, Stroke TIE CUTTER, and nursing. Travis Bhat, MSN, CARBON PAPER INTERLEAFER, TIE CUTTER-C, SCRN, CNRN Interventional Vascular Neurology [facility] ASCOM #[id number] ATTESTATION I have seen and examined the [...] ? Yessenia Kerr MD Interventional Vascular Neurology?? [facility] Pager- [phone] Nurse Practitioner (ASCOM [id number]) ? * Annamarie Bonilla RN - 01/31/2024 1:06 PM CDT Care Coordination Progress Note This Credentialing Manager met with patient and discussed the patient's PLOF, the POC and anticipated DC plan. ?? 01/23/2024 Pt BIBEMS from home, he was found unresponsive by an parts sales manager. Unknown LKW. Pt was found covered in [...] 01/26: encephalopathic, concern for seizure -- cEEG, [facility], 01/27: okay to transfer to [address] [place] [address] 01/29: s/p EGD with PEG placement. Pt remains in ICU room 343 Anticipated level of care at discharge: Acute Rehab Facility Anticipated level of care provider: [facility] Anticipated Discharge Date: 01/31/24 Transportation at Discharge: other (TBD) Orientation Level: Oriented to Person;Disoriented to Time;Disoriented to Situation;Disoriented to Place (Simultaneous filing. User may not have seen previous data.) Family Support (Name and Phone): Extended Emergency Contact Information Primary Emergency Contact: Christi Vazquez Mobile Relation: Daughter Secondary Emergency Contact: Carol Vazquez [employer] [facility] Relation: Sister READMISSION RISK SCORE is 16 at 1:06 PM 01/31/2024. Portions of this note have been copied from the medical record, but edited appropriately to accurately reflect the patient's current clinical state. Annamarie Bonilla RN Case Management - ICU 3N & 3S [facility] Ascom: [phone] O: [phone] Stroke Psychosocial Assessment Diagnosis: The primary encounter diagnosis was Encounter for central line placement. Diagnoses of Altered mental status, unspecified altered mental status type, Hypoxia, Basilar artery thrombosis, Acute hypoxemic respiratory failure (HCC), and Nausea and vomiting, unspecified vomiting type were also pertinent to this visit. Contacts/Support: Extended Emergency Contact Information Primary Emergency Contact: Christi Vazquez Mobile Relation: Daughter Secondary Emergency Contact: [facility] Relation: Sister Insurance: Payer/Plan Subscriber Name Rel Member # Group # [employer] - [place] BITA [place]ASIO* Self [id number] [address] [id number] Prior level of functioning: Cognition: Orientation Level: Oriented to Person;Disoriented to Time;Disoriented to Situation;Disoriented to Place Mental Health History: Employment/income status: works at [employer] Alcohol/Drug/Tobacco: Social History Socioeconomic History ??? Marital status: Legally Spouse name: Not on file ??? Number of children: 1 ??? Years of education: 16 ??? Highest education level: Bachelor's degree (e.g., BA, AB, BS) Occupational History ??? 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 Smoking [...] (HCC) 09/28/2011 ??? 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 Cough syncope 2017 ??? Daytime sleepiness 08/05/2020 ??? Essential hypertension 01/23/2018 ??? Hyperlipidemia 08/05/2020 ??? Inadequate sleep hygiene 08/05/2020 ??? Morbid obesity with BMI of 40.0-44.9, adult ([facility]) 08/05/2020 ??? Nocturia 08/05/2020 ??? [...] other (TBD) Coping Strengths: Short Term Goals: Yoke Presser Goals: Patient and Family Questions/Concerns: * Luz [...] found down at his home by the parts sales manager person he had scheduled to visit his [...] Pt tolerated 2 mins standing, asymptomatic. Modified Midway Score: Current Modified Mervin Score: 5 ASSESSMENT: Pt appears more alert [...] summary. Luz PT, CCI [phone] * Linda Junior RD/TGN - 01/31/2024 11:26 AM CDT Nutrition [...] Summary: Pt s/p PEG placement yesterday. Per TIE CUTTER ok to restart TF. Due to 1 week of insignificant nutrition since admission Pt is at high risk of refeeding, messaged MD and TIE CUTTER about order vitamin supplements and labs q12hr. Weight lost of -2% weight change in 1 week. NFPE completed showing no fat wasting andno-mild muscle wasting. No new labs today. Current diet order: NPO Current tube feeding order: Osmolite @ 30 ml/hr. This provides 864, 40 g pro, 590 ml free water Recent Labs Component Name 01/30/24 04201/29/24 0259 01/28/24 0341 07/26/22 1653 12/24/19 0923 [...] interval not displayed. Recent Labs Component Name 01/30/2442801/29/249 01/28/24 034 MAGNESIUM 1.5* 1.6 1.7 Recent [...] 01/30/2024 6:57 PM CDT Shift Summary Nursing [facility] 3S ICU Room: 01/30/24 Patient: Raza Vazquez Sex: male Age: [age] year old : 1960 [facility]#: [id number] Height: 193 cm (6' 4 ) Weight: 121.5 kg (267 lb 13.7 oz) Body mass index is 32.6 kg/m??. Code Status: Full Code Admit: 01/23/2024 Hospital Day: 7 Attending: Yessenia Kerr MD Unit: [address] ICU Allergies Allergen Reactions ??? Lisinopril [...] long-term current use of insulin ([facility]) 09/28/2011 ??? 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 Cough syncope 2017 ??? Daytime sleepiness 08/05/2020 ??? Essential hypertension 01/23/2018 ??? Hyperlipidemia 08/05/2020 ??? Inadequate sleep hygiene 08/05/2020 ??? Morbid obesity with BMI of 40.0-44.9, adult ([facility]) 08/05/2020 ??? Nocturia 08/05/2020 ??? [...] to commands Motor Function RLE: Cannot Overcome Mcfaddin Sensation RLE: Normal;No numbness;No tingling Motor Response LLE: Responds to commands Motor Function LLE: Cannot Overcome Mcfaddin Sensation LLE: Normal;No numbness;No tingling Ataxia: Absent [...] Name 01/27/24 1233 01/23/24 1714 01/23/24 1053 [id number] 28.5* 26.6* 25.9 Gastric Intestinal Orders Placed [...] 0659 01/30/24 0700 - 01/31/24 0659 Shift 9276-8127 7684-3787 24 Hour Total 7433-9936 3380-7593 5219-8115 24 Hour Total INTAKE I.V.(mL/kg/hr) 212 212 [...] Location: Abdomen;Midline;Upper Size (FR): 20 Lot Number: [id number] Procedure Tolerance: Sedated Number of days: 0 [...] as accurate as the information entered into [facility]. Be sure to review Orders and MAR [...] at a later time/date. Linda Tamez, MS [facility]-PIGMENT AND LACQUER MIXER [phone] * Linda Junior RD/HAFSA - 01/30/2024 [...] ?? SCHEDULED MEDICATIONS: ?? *Hold/Avoid Medication, Other, 799 and 1999 [...] breaks $ O2 DEVICE: Room Air Modified Midway Score Current Modified Midway Score: 5 ASSESSMENT: Pt in bed - [...] AM CDT Care Coordination Progress Note This Credentialing Manager met with patient and discussed the patient's PLOF, the POC and anticipated DC plan. ?? 01/23/2024 Pt BIBEMS from home, he was found unresponsive by an parts sales manager. Unknown LKW. Pt was found covered in [...] cEEG, DHT, 01/27: okay to transfer to [address] [place] [address] Anticipated level of care at discharge: Acute Rehab Facility Anticipated level of care provider: [facility] Anticipated Discharge Date: 01/31/24 Transportation at Discharge: other (TBD) Orientation Level: Oriented to Person;Disoriented to Time;Disoriented to Situation;Disoriented to Place Family Support (Name and Phone): Extended Emergency Contact Information Primary Emergency Contact: Christi Vazquez Mobile Relation: Daughter Secondary Emergency Contact: Carol Vazquez [facility] Relation: Sister READMISSION RISK SCORE is 17 at 11:13 AM 01/30/2024. Portions of this note have been copied from the medical record, but edited appropriately to accurately reflect the patient's current clinical state. Annamarie Bonilla RN Case Management - ICU 3N & 3S [facility] Ascom: [phone] O: [phone] Stroke Psychosocial Assessment Diagnosis: The primary encounter [...] Relation: Daughter Secondary Emergency Contact: Carol Vazquez [facility] Relation: Sister Insurance: Payer/Plan Subscriber Name Rel Member # Group # [employer] - [employer]* BITA VAZQUEZ* Self [id number] [address] [address] Prior level of functioning: Cognition: Orientation Level: Oriented to Person;Disoriented to Time;Disoriented to Situation;Disoriented to Place Mental Health History: Employment/income status: works at [employer] Alcohol/Drug/Tobacco: Social History Socioeconomic History ??? Marital status: Legally Spouse name: Not on file ??? Number of children: 1 ??? Years of education: 16 ??? Highest education level: Bachelor's degree (e.g., BA, AB, BS) Occupational History ??? 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 Smoking [...] (HCC) 09/28/2011 ??? 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 [...] other (TBD) Coping Strengths: Short Term Goals: Yoke Presser Goals: Patient and Family Questions/Concerns: * Yessenia Kerr MD - 01/30/2024 10:51 AM CDT INTERVENTIONAL STROKE NEUROLOGY PROGRESS NOTE Hospital Day: 7 A 63 year old male was admitted with PMH of DM, HTN, alcohol abuse who presented on 01/23/2024 10:27AM with chief complaint of unresponsiveness. He was found down at his home by the parts sales manager person he had scheduled to visit his [...] Nostril/Nare;Right Name of person who removed: Nel Sirisharomy RN Number of days: 3 Puncture Site [...] QTC Calculation (Bezet) 454 ms Calculated P Alverda 79 degrees Calculated R Alverda 76 degrees Calculated T Alverda -77 degrees Interpretation EKG Normal sinus rhythm [...] Anterior leads Confirmed by JUSTICE PURVIS MD ([id number]) on 01/23/2024 2:35:44 PM Tele: Cardiac Rhythm: [...] Documented NIHSS Score: NIH Total: 19 (01/30/24 08) Depression Screen Score = Does not [...] gains as a result of skilled therapy (04/16/24 1428) Recommended Transportation Method: To be Determined (01/29/241428) Modified Mervin Score: Preadmission Modified Mervin Score: 0 (01/26/24 0936) Current Modified Midway Score: 5 (01/29/241428) Procedures: Basilar artery??angioplasty 01/23/2024 [...] with the following disciplines: Stroke neurology, Stroke TIE CUTTER, and nursing. Travis Bhat, MSN, CARBON PAPER INTERLEAFER, TIE CUTTER-C, SCRN, CNRN Interventional Vascular Neurology [facility] ASCOM #[id number] ATTESTATION I have seen and examined the [...] ? Yessenia Kerr MD Interventional Vascular Neurology?? [facility] Pager- [phone] Nurse Practitioner (ASCOM [id number]) ? * Gustavo [...] reach to face L UE able to team truck driver with diminished strength, close fist Antelmo LE [...] Davon SPT Ascom [phone] * Linda Carson, PIGMENT AND LACQUER MIXER - 01/29/2024 4:16 PM CDT Speech Pathology: Pt seen this date for dysphagia f/u. Raza Vazquez is a 63 year old male with a PMH of the following: Past Medical History: Diagnosis Date ??? Anemia 01/2018 ??? Asthma ([facility]) ??? Chest congestion 08/05/2020 ??? Confusional arousals 08/05/2020 ??? Controlled type 2 diabetes mellitus without complication, without long-term current use of insulin ([facility]) 09/28/2011 ??? 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 Cough syncope 2017 ??? Daytime sleepiness 08/05/2020 ??? Essential hypertension 01/23/2018 ??? Hyperlipidemia 08/05/2020 ??? Inadequate sleep hygiene 08/05/2020 ??? Morbid obesity with BMI of 40.0-44.9, adult ([facility]) 08/05/2020 ??? Nocturia 08/05/2020 ??? [...] and having difficulty following commands. Dysphagia Oral [facility] exam significant for minimal to absent oral-motor [...] you for this referral. Linda Tamez MS [facility]-PIGMENT AND LACQUER MIXER [phone] * Sloane Caballero OT - 01/29/2024 [...] - Right Upper Extremity: Within Normal Limits Retail Office Associate Strength - Right Upper Extremity: 10/19 LUE Assessment: LUE Assessment AROM - Left Upper Extremity: Within Functional Limits PROM - Left Upper Extremity: Within Functional Limits Strength - Left Upper Extremity: Within Functional Limits Tone - Left Upper Extremity: Within Functional Limits Sensation - Left Upper Extremity: Within Normal Limits Retail Office Associate Strength - Left Upper Extremity: WFL Functional [...] 0 $ O2 DEVICE: Room Air Modified Midway Score Current Modified Midway Score: 5 ASSESSMENT: Pt tolerates session fairly [...] found down at his home by the parts sales manager person he had scheduled to visit his [...] QTC Calculation (Bezet) 454 ms Calculated P Alverda 79 degrees Calculated R Alverda 76 degrees Calculated T Alverda -77 degrees Interpretation EKG Normal sinus rhythm [...] Method: To be Determined (01/28/24 1050) Modified Midway Score: Preadmission Modified Midway Score: 0 (01/26/24 0936) Current Modified Midway Score: 5 (01/28/24 1045) Procedures: Basilar artery??angioplasty [...] with the following disciplines: Stroke neurology, Stroke TIE CUTTER, and nursing. Travis Bhat, MSN, CARBON PAPER INTERLEAFER, TIE CUTTER-C, SCRN, CNRN Interventional Vascular Neurology [facility] ASCOM #[id number] ATTESTATION I have seen and examined the [...] hold heparin but not the plavix. ?? Amer Madanhekhlee, MD Interventional Vascular Neurology [facility] Pager- [phone] Nurse Practitioner (ASCOM [id number]) ?? * Vernon Linda M, RD/LDN - 01/29/2024 1:14 PM CDT CLINICAL NUTRITION Pt follow-up for tube feeding. Pt on room air. Post extubation on 01/24. Downgraded this morning. Per MD ok to slowly increase TF. Osmolite infusing at 20 ml/hr. Of note on 01/23 vomited TF at 35 ml/hr. PIGMENT AND LACQUER MIXER recommends NPO at this time. Labs reviewed. [...] Jacome MD - 01/29/2024 8:30 AM CDT Multi Operation Machine Operator day rounding note: Patient remains responsive and [...] found down at his home by the parts sales manager person he had scheduled to visit his [...] Nostril/Nare;Right Name of person who removed: Nel Sirisharomy RN Number of days: 2 Puncture Site [...] QTC Calculation (Bezet) 454 ms Calculated P Alverda 79 degrees Calculated R Alverda 76 degrees Calculated T Alverda -77 degrees Interpretation EKG Normal sinus rhythm [...] Method: To be Determined (01/28/24 1050) Modified Midway Score: Preadmission Modified Midway Score: 0 (01/26/24935) Current Modified Mervin Score: [...] to sign off, okay to transfer to [address] [place] [address]. Multidisciplinary rounds have been completed today with the following disciplines: Stroke neurology, Stroke TIE CUTTER, and nursing. Travis Bhat, MSN, CARBON PAPER INTERLEAFER, TIE CUTTER-C, SCRN, CNRN Interventional Vascular Neurology [facility] ASCOM #[id number] ATTESTATION I have seen and examined the [...] tomorrow. Yessenia Kerr MD Interventional Vascular Neurology [facility] Pager- [phone] Nurse Practitioner (ASCOM [id number]) * Sloane Caballero [...] Exceptions Strength - Right Upper Extremity: Exceptions Retail Office Associate Strength - Right Upper Extremity: diminished team truck driver strength AROM - Left Upper Extremity: Within Functional Limits Strength - Left Upper Extremity: Within Functional Limits Retail Office Associate Strength - Left Upper Extremity: WFL AROM [...] was indep with ADLs and functional mobility INDUSTRIAL ORGANIZATIONAL PSYCHOLOGIST. Timeline 01/22: Presented to ED after being [...] PLOF ADL: Prior to Admission Feeding: Complete [place] Prior to Admission Oral Facial Hygiene: Complete Payette Prior to Admission Bathing: Complete Payette Prior to Admission Upper Body Dressing: Complete Payette Prior to Admission Lower Body Dressing: Complete Payette Prior to Admission Toileting: Complete Payette Prior to Admission Bladder: Independent Prior to Admission Bowel: Independent Prior to Admission Shopping: Independent Prior to Admission Finances: Independent Prior to Admission Driving: Complete Payette Oxygen Therapy: O2 L/M: 3 $ O2 [...] - Right Upper Extremity: Within Normal Limits Retail Office Associate Strength - Right Upper Extremity: 1/5 LUE Assessment: LUE Assessment AROM - Left Upper Extremity: Within Functional Limits PROM - Left Upper Extremity: Within Functional Limits Strength - Left Upper Extremity: Within Functional Limits Tone - Left Upper Extremity: Within Functional Limits Sensation - Left Upper Extremity: Within Normal Limits Retail Office Associate Strength - Left Upper Extremity: Fair Retail Office Associate Strength: RUE: Retail Office Associate Strength - Right Upper Extremity: 1/ LUEGrip Strength - Left Upper Extremity: Fair: Tone: RUETone - Right Upper Extremity: Exceptions: LUE:Tone - Left Upper Extremity: Within Functional Limits Coordination: Rapid Alternating Movements: impaired bilaterally Gzxpcy-Qmkq-Cxqili: impaired bilaterally, dysmetria L side Serial Opposition: [...] $ O2 DEVICE: Nasal Cannula $ Modified Midway Score Preadmission Modified Midway Score: 0 Current Modified Midway Score: 5 ASSESSMENT: Initial OT evaluation completed [...] to move both LEs and LUE, minimal team truck driver noted in RUE however no AROM seen [...] and intact pre and post visit. RN, Ny and Ryley, notified of patient's performance/location end [...] ??? Anemia 01/2018 ??? Asthma ([facility]) ??? Chest congestion 08/05/2020 ??? Confusional arousals 08/05/2020 ??? Controlled type 2 diabetes mellitus without complication, without long-term current use of insulin ([facility]) 09/28/2011 ??? 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 Cough syncope 2017 ??? Daytime sleepiness 08/05/2020 ??? Essential hypertension 01/23/2018 ??? Hyperlipidemia 08/05/2020 ??? Inadequate sleep hygiene 08/05/2020 ??? Morbid obesity with BMI of 40.0-44.9, adult ([facility]) 08/05/2020 ??? Nocturia 08/05/2020 ??? [...] kept eyes closed. Pt A&Ox2. [facility] mod. oral motor incoordination. [...] Thank you for this referral. Jacqueline Suh PIGMENT AND LACQUER MIXER Graduate Clinician 01/28/2024 1:03 PM [phone] * [...] 1.2 at 20 ml/hr x 16 hrs (7403-3634), water flush per MD. Provides: 384 kcal, [...] nursing assessment (swollen) Estimated Energy Needs: KCAL: 0950-1666 kcal/day (25-30 kcal/kg IBW) Protein (g): 137-165 [...] AM CDT Raza continues to receive scheduled C5ibmydzcfm treatments and bronchial hygiene using the Volara device. Lungs sound are diminished this shift. Will continue to monitor and wean as tolerable. Patient required NT suctioning x1 this shift. * Sloane Caballero OT - 01/27/2024 3:42 PM CDT Therapy orders acknowledged. Chart reviewed. Attempted to see pt however pt working with PIGMENT AND LACQUER MIXER. Will continue to follow and see when able. SHELLY Anton/Boris [phone] * Joanna Causey SLP - 01/27/2024 3:35 PM CDT Speech Pathology: Pt seen for follow up 2/ to stroke protocol Raza Jr Vazquez is a 63 year old male with a PMH of the following: Past Medical History: Diagnosis Date ??? Anemia 01/2018 ??? Asthma ([facility]) ??? Chest congestion 08/05/2020 ??? Confusional arousals 08/05/2020 ??? Controlled type 2 diabetes mellitus without complication, without long-term current use of insulin ([facility]) 09/28/2011 ??? 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 Cough syncope 2017 ??? Daytime sleepiness 08/05/2020 ??? Essential hypertension 01/23/2018 ??? Hyperlipidemia 08/05/2020 ??? Inadequate sleep hygiene 08/05/2020 ??? Morbid obesity with BMI of 40.0-44.9, adult ([facility]) 08/05/2020 ??? Nocturia 08/05/2020 ??? [...] eyes closed. Dysphagia Oral care completed via Fishki suction kit. Pt observed with trials of [...] Thank you for this referral. Joanna Berg [facility]-P[facility]MENT AND LACQUER MIXER 01/27/2024 4:02 PM [phone] * Ny Altamirano [...] 0700 01/26/24 0701 - 01/26/24 1900 01/26/24 1901 [...] found down at his home by the parts sales manager person he had scheduled to visit his [...] QTC Calculation (Bezet) 454 ms Calculated P Alverda 79 degrees Calculated R Alverda 76 degrees Calculated T Alverda -77 degrees Interpretation EKG Normal sinus rhythm [...] a result of skilled therapy (01/26/24935) Modified Midway Score: Preadmission Modified Midway Score: 0 (01/26/24935) Current Modified Midway Score: 5 (01/26/24935) Procedures: Basilar artery??angioplasty 01/23/2024 [...] with the following disciplines: Stroke neurology, Stroke TIE CUTTER, Pharmacist, relations liaison, and nursing. Pricila Harrison, MSN, CARBON PAPER INTERLEAFER, AGNP- Interventional Vascular Neurology [facility] ASCOM #[id number] ATTESTATION I have seen and examined the [...] 01/27/2024 Sherie Beltre MD Interventional Vascular Neurology [facility] * Miguel Angel Cowart RN - 01/27/2024 7:30 AM CDT Pt bp elevated overnight. Dr Zamorano notified. Started on Cardene gtt. NIH 14. * Saundra Berger SLP - 01/26/2024 2:31 PM CDT Speech Language Pathologist Stroke Protocol Evaluation Speech Pathology: Order received and chart reviewed. P[employer]MENT [employer] LACQUER MIXER Evaluation completed including clinical swallow evaluation, speech/language/cognition [...] long-term current use of insulin ([facility]) 09/28/2011 ??? 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 Cough syncope 2017 [...] of sternal region 02/23/2018 [facility]: Date: 01/26/2024 [facility] Total: 12 Patient/Caregiver goals: Did not state S: Pt resting in bed, drowsy. Pt on 3L O2 via NC. Sister and daughter at the bedside. HOB elevated for PO. Dysphagia Oral [facility] exam revealed L facial asymmetry, lingual weakness [...] Speech/Language Orientation: A&Ox2 Receptive Language One-step Commands: 7/ Yes/No Reliability: 1/4 simple;2 /3 complex Expressive [...] Thank you for this referral. Saundra BOWLES, [facility]-PIGMENT AND LACQUER MIXER [phone] 01/26/2024 2:31 PM * Kel Jacome MD - 01/26/2024 1:33 PM CDT ICU Progress Note Subjective: Overnight events: Tmax 38.4 Symptoms: Patient unable to communicate symptoms, able to follow commands. Subjective: Filed Vitals: 01/26/24 0900 01/26/24 1000 01/26/24 1100 01/26/24 1200 BP: 152/96 (!) 176/112 (!) 172/106 (!) 197/111 Pulse: 96 94 82 76 Resp: 24 Temp: 98.5 ??F (36.9 ??C) TempSrc: Axillary [...] (Active) Placement Date/Time: 01/23/24 1137 Placed by: ZAHCARY Gunter Size (FR): 18 Urinary Catheter Type: [...] found down at his home by the parts sales manager person he had scheduled to visit his [...] (!) 148.6 kg (327 lb 9.6 oz) 07/24/23 (!) 145.2 kg (320 lb) Multisystem Examination: [...] QTC Calculation (Bezet) 454 ms Calculated P Alverda 79 degrees Calculated R Alverda 76 degrees Calculated T Alverda -77 degrees Interpretation EKG Normal sinus rhythm [...] would benefit from intensive 3-hour multidisciplinary therapy(01/26/24 0936) This recommendation is made due to ongoing [...] a result of skilled therapy (01/26/24935) Modified Midway Score: Preadmission Modified Midway Score: 0 (01/26/24935) Current Modified Mervin Score: [...] with the following disciplines: Stroke neurology, Stroke TIE CUTTER, Pharmacist, relations liaison, and nursing. Pricila Harrison, MSN, CARBON PAPER INTERLEAFER, AGNP- Interventional Vascular Neurology [facility] ASCOM #[id number] ATTESTATION I have seen and examined the [...] 01/26/2024 Sherie Beltre MD Interventional Vascular Neurology [facility] * Brennan Minor RN - 01/26/2024 10:31 [...] found down at his home by the parts sales manager person he had scheduled to visit his [...] Upper Extremity: (shoulder flexion/abduction approx. 100 degrees) Retail Office Associate Strength - Right Upper Extremity: diminished team truck driver strength LUE Assessment: LUE Assessment AROM - Left Upper Extremity: Within Functional Limits Strength - Left Upper Extremity: Within Functional Limits Retail Office Associate Strength - Left Upper Extremity: WFL Coordination: Rapid Alternating Movements: RUE unable to complete; LUE w/ bradykinesia and dysmetria Tdnrhz-Htdn-Oahkfe: RUE unable to complete; LUE w/ bradykinesia [...] Position Supine in bed Seated EOB Modified Midway Score Preadmission Modified Midway Score: 0 Current Modified Mervin Score: 5 ASSESSMENT: Patient presents to OT [...] in R hand but unable to maintain team truck driver strength to bring wash cloth to face. [...] notified of patient's performance/location end of session. Roofing SupervisorChacha, present to assist throughout the session. Educated [...] Thank you for this referral JOSE E AntonR/L [phone] * Miguel Angel Cowart RN - [...] at bedside with all questions answered; Christi Bland RN 01/25/2024 6:52 PM * Christi Bland [...] found down at his home by the parts sales manager person he had scheduled to visit his [...] QTC Calculation (Bezet) 454 ms Calculated P Alverda 79 degrees Calculated R Alverda 76 degrees Calculated T Alverda -77 degrees Interpretation EKG Normal sinus rhythm [...] Anterior leads Confirmed by JUSTICE PURVIS MD ([id number]) on 01/23/2024 2:35:44 PM Tele: Cardiac Rhythm: [...] Score = PHQ-2 PHQ-9 Therapy Recommendations: Modified Midway Score: Procedures: Basilar artery??angioplasty 01/23/2024 IMPRESSION - [...] with the following disciplines: Stroke neurology, Stroke TIE CUTTER, Pharmacist, relations liaison, and nursing. Pricila Harrison, MSN, CARBON PAPER INTERLEAFER, AGNP- Interventional Vascular Neurology [facility] ASCOM #[id number] ATTESTATION I have seen and examined the [...] 01/25/2024 Sherie Beltre MD Interventional Vascular Neurology [facility] * Travis Dubose, GEORGES/TGN - 01/25/2024 9:35 AM CDT CLINICAL NUTRITION [...] mg/dL Max: 200 mg/dL Last BM (Date): (INDUSTRIAL ORGANIZATIONAL PSYCHOLOGIST) Bowel Sounds (All Quadrants): Active (per nursing [...] simple commands Output by Drain (mL) 01/23/24 07 - 01/23/24 1900 01/23/24 190 - 01/24/24 0701/24/24 07 - 01/24/24 1900 01/24/24 190 - [...] 8:14 AM Critical Care Medicine * Sloane Caballero OT - 01/25/2024 7:32 AM CDT Therapy [...] lipsNumber of insertion attempts: 1 Cuff infl... Status [...] patient's preference is to stay within the [facility] Network and its affiliates.: Unsure Comments: Lives with: Alone Physical Limitations: Requires Assistance With: None Patient has the following Progressive disease with impairment. Preferred Pharmacy: [phone] [facility] [phone] [facility] [id number] Advance Directive: Yes, has Advance Directive Type of Directive: Durable Power of Precision Machining Instructor for Healthcare Copy Available: Yes, electronic copy available Is copy reviewed and most current: Yes, Reviewed & most current Insurance: Payer/Plan Subscriber Name Rel Member # Group # [employer] - [employer] [place]* BITA VAZQUEZ* Self [id number] [address] [address] Readmission: No Readmission Risk: READMISSION RISK SCORE is 16 at 5:17 PM 01/24/2024. 01/23/2024 Pt BIBEMS from home, he was found unresponsive by an parts sales manager. Unknown LKW. Pt was found covered in [...] Extended Emergency Contact Information Primary Emergency Contact: GeorgeChristi Mobile Relation: Daughter Secondary Emergency Contact: Carol Vazquez [facility] Relation: Sister Patient or workforce services representative requests care coordination reach out to [...] money to get more.: Never true Consult Skiver Operator:No Consult Acute Rehab:Yes [facility]HN referral - No Portions of this note have been copied from the medical record, but edited appropriately to accurately reflect the patient's current clinical state. Annamarie Bonilla RN Case Management - ICU 3N & 3S [facility] Ascom: [phone] * Lucretia Vega RN - 01/24/2024 3:42 [...] found down at his home by the parts sales manager person he had scheduled to visit his [...] 161* 173* 179* Recent Labs Component Name 01/24/2444201/23/24 2004 01/23/24 1045 01/23/24 1039 07/27/22 0244 [...] QTC Calculation (Bezet) 454 ms Calculated P Alverda 79 degrees Calculated R Alverda 76 degrees Calculated T Alverda -77 degrees Interpretation EKG Normal sinus rhythm [...] Score = PHQ-2 PHQ-9 Therapy Recommendations: Modified Midway Score: Procedures: Basilar artery??angioplasty 01/23/2024 IMPRESSION - [...] with the following disciplines: Stroke neurology, Stroke TIE CUTTER, Pharmacist, relations liaison, and nursing. Pricila Harrison, MSN, CARBON PAPER INTERLEAFER, AGNP- Interventional Vascular Neurology [facility] ASCOM #[id number] ATTESTATION I have seen and examined the [...] 01/24/2024 Sherie Beltre MD Interventional Vascular Neurology [facility] * Sis Mendoza - 01/24/2024 9:32 AM CDT Echocardiogram completed today. * Saundra Berger SLP - 01/24/2024 8:34 AM CDT Speech Pathology Orders received per stroke protocol and chart reviewed. Noted pt is currently intubated and not appropriate for ST. ST to follow for extubation, pt to remain NPO upon extubation pending ST eval. Thank you for this referral, WILBUR Boykin, [facility]-PIGMENT AND LACQUER MIXER [phone] * Travis Dubose RD/HAFSA - 01/24/2024 [...] Pain affecting intake: No Estimated Needs: KCAL: 8521-3304 kcal/day (11-14 kcal/kg BW) (vent/obesity) Protein (g): 137-184 g pro/day (1.5-2.0 g/kg IBW) Fluid (ml): Other (comments) (per MD) Needs based on: Kcal/kg- (Comment) (kcal - 142.5 kg BW 01/23; pro - 91.8 kg IBW) Recommended Access Route: TF Component Name 01/24/24 0443 01/23/24200301/23/24 1039 SODIUM 141 141 142 POTASSIUM 3.1* [...] Or ?? Or ?? *Hold/Avoid Medication, Other, 08 and 1999 [...] of thoracic movement with respirations noted. * Lyric Adams RN - 01/23/2024 10:52 AM CDT [...] arrival. Code Stroke Nurses in attendance: Rex Gunetr ED RN Name: Juan HEADAmari- unknown Stroke Risk Factors- Age, Sex, Carotid [...] presents via EMS unresponsive, found down by parts sales manager who showed up to his house for [...] Shelby, PharmD - 01/23/2024 10:36 AM CDT [facility] Pharmacy Services Admission Medication Review Raza aVzquez is a 63 year old male I [...] to take part of Raza Vazquez's care. Jason Shelby PharmD documented in this encounter H&P Notes * Sherie Beltre MD - 01/23/2024 12:27 PM CDT ADMIT NOTE INTERVENTIONAL VASCULAR NEUROLOGY [facility] Reason for [...] found down at his home by the parts sales manager person he had scheduled to visit his [...] long-term current use of insulin ([facility]) 09/28/2011 ??? 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 Cough syncope 2017 [...] 50 mcg Intravenous BOLUS FROM BAG PRN Gladys Mcgee MD ??? fentaNYL 2500 mcg/50mL infusion [...] the vertebral confluence. > Interpreting Provider: Av lBackwood MD on 01/23/2024 11:[address] BRAIN [...] 188 Sherie Beltre MD Interventional Vascular Neurology [facility] documented in this encounter Procedure Notes * Chuy Siegel DO - 02/10/2024 11:21 AM CDT [place] Procedure Note: Tracheostomy exchange with tracheal bronchoscopy [...] Jacome MD - 02/02/2024 3:07 PM CDTProcedure(s): MS INSERT EMERGENCY ENDOTRACH AIRWAY Pre-Procedure Diagnose(s): Acute [...] 01/28/2024 4:09 PM CDT LONG-TERM VIDEO EEG [facility] Long-term video EEG monitoring was performed on a patient with seizure. ?? Utilizing the Lemonwise/Talenz recording system, EEG was recorded in standard [...] cerebral right vertebral artery 2. Angioplasty with Bridgewater 2.5 mm X 15 mm balloon 4. [...] The diagnostic catheter was exchanged for a Target Data shuttle which was positioned at the right [...] cross the lesion. A 2.5 x15 mm Bridgewater angioplasty balloon was advanced over the exchange [...] was removed. A run performed from the INSTALLER HELPER demostrated a normal femoral artery bifurcation. The sheath was exchanged for the angioseal 8F device.The device was deployed and hemostasis was achieved. The right dorsalis pedis pulse was palpable atthe end of the closure procedure. The patient [...] and VAISHNAVI with large PCOM filling the PUBLIC AREA SUPERVISOR. The left vertebral artery angiogram shows a [...] found down at his home by the parts sales manager person he had scheduled to visit his [...] (HCC) 09/28/2011 ??? 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 [...] 284 Recent Labs Component Name 01/29/24 02501/28/24 03401/27/24 0537 SODIUM 140 139 138 POTASSIUM 4.1 [...] EGFR >90 Recent Labs Component Name 01/29/24 02501/28/24 03401/27/24 0537 ALBUMIN 2.7* 2.6* 2.5* ALKPHOS 90 90 90 ALT 10 12 16 AST 14 17 23 TBIL 0.2 0.3 0.4 TPROT 8.2 7.8 7.5 No results for input(s): AMYLASE in the last 48015 hours. No results for input(s): LIPASE in the last 34943 hours. Recent Labs Component Name 01/23/24 1045 [...] ON 01/30/2024] *Hold/Avoid Medication, Other, 0800 and 1999 ?? CONTINUOUS MEDICATIONS: ?? niCARdipine (Cardene) 50 [...] BA, AB, BS) Occupational History ??? 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 Smoking status: Some Days [...] Jeff Ruffin MD [facility] [phone] * Sabiha Cole PTA - 01/24/2024 7:33 AM CDTAssociated Order(s): IP CONSULT TO PHYSICAL MED AND REHAB [facility] Acute Rehab has received consult via stroke protocol and medical workup in progress. [facility] Rehab will follow for medical stability and therapy evaluations to determine DC needs. Thank you for the referral. Sabiha Cole PTA, MS Clinical Liaison [facility] [phone] * Luis A Montoya MD - 01/23/2024 [...] ??? Anemia 01/2018 ??? Asthma ([facility]) ??? Chest congestion 08/05/2020 ??? Confusional arousals 08/05/2020 ??? Controlled type 2 diabetes mellitus without complication, without long-term current use of insulin ([facility]) 09/28/2011 ??? 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 Cough syncope 2017 ??? Daytime sleepiness 08/05/2020 ??? Essential hypertension 01/23/2018 ??? Hyperlipidemia 08/05/2020 ??? Inadequate sleep hygiene 08/05/2020 ??? Morbid obesity with BMI of 40.0-44.9, adult ([facility]) 08/05/2020 ??? Nocturia 08/05/2020 ??? [...] comments: 3-4 times / month-2019 says 1x/month Substance Use Topics ??? Alcohol [...] IV Left Antecubital (Active) Placement Date/Time: 01/23/24 113 Orientation: Left Location: Antecubital Site Prep: ChlorhexidineTechnique: [...] on Admission . REFRESH NOTE BEFORE SIGNING! :[id number]} Patient Diagnoses Present at the Time of [...] was found unresponsive at home by an parts sales manager. Unknown LKW. Pt has a hx of [...] ??? Anemia 01/2018 ??? Asthma ([facility]) ??? Chest congestion 08/05/2020 ??? Confusional arousals 08/05/2020 ??? Controlled type 2 diabetes mellitus without complication, without long-term current use of insulin ([facility]) 09/28/2011 ??? 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 Cough syncope 2017 ??? Daytime sleepiness 08/05/2020 ??? Essential hypertension 01/23/2018 ??? Hyperlipidemia 08/05/2020 ??? Inadequate sleep hygiene 08/05/2020 ??? Morbid obesity with BMI of 40.0-44.9, adult ([facility]) 08/05/2020 ??? Nocturia 08/05/2020 ??? [...] Manisha Terry MD 1.5 mL/hr at 01/24/24 183 75 mcg/hr at 01/24/24 1830 ??? glucose [...] mL/hr at 01/24/24 1830 0.05 mcg/kg/min at 01/24/241829 ??? ondansetron (Zofran) injection 4 mg 4 [...] (HbF) exceeds 5% in the specimen. The Bathrooms.comnity assay for the measurement of HbA1c is [...] johan. A gastric tube terminates in the gypfi-yp-hneg, well below the diaphragm. The cardia mediastinal [...] cerebral right vertebral artery 2. Angioplasty with Bridgewater 2.5 mm X 15 mm balloon 4. [...] cross the lesion. A 2.5 x15 mm Bridgewater angioplasty balloon was advanced over the exchange [...] was removed. A run performed from the INSTALLER HELPER demostrated a normal femoral artery bifurcation. The [...] and VAISHNAVI with large PCOM filling the PUBLIC AREA SUPERVISOR. The left vertebral artery angiogram shows a [...] Alexei Cruz DO on 01/23/2024 1:06 PM XR CHEST POST [...] and tip is not included within the wmwwl-fc-paji. Impression: 1. ET tube terminates 4.2 cm [...] in both superior cerebellar arteries. The left DEHAIRING MACHINE TENDER has supply essentially. IMPRESSION: Short segment severe, [...] (1,633.2 mcg Intravenous Bolus From Bag 01/23/24 1458) Followed by tirofiban (Aggrastat) 0.05 mg/mL infusion [...] Mcgee MD Consent: Consent obtained: Emergent situation Cushman protocol: Relevant documents present and verified: yes [...] ZACHARY - 01/23/2024 10:27 AM CDT Bed: PSYCHIATRIC Expected date: 01/23/24 Expected time: 10:17 AM [...] in acute illness) BMI 35.02. o Treatment: Program Evaluation Consultant consult, tube feeding with Osmolite 1.2 @ [...] st Contact Info) Description 10/20/2024 8:00 AM VICTORIAN LITERATURE PROFESSOR Office Visit [facility] - Family Medicine [address] [place] [phone] Kiana Cole MD [address] [place], [place] [phone] 11/28/2024 9:00 AM VICTORIAN LITERATURE PROFESSOR Office Visit [facility] - Neurology [address] [place] [phone] Aline Finch MD [address] [place] [address] 02/10/2025 10:00 AM CDT Office Visit [facility] - Cardiology [address] [place] [address] Curly Lay MD [address] [place] [address] Scheduled Orders Name Type Priority [...] OF CARE Routine 01/30/2024 4:09 PM CDT MS EGD FLEX TRANSORAL W PLCMT GTUBE PERC [...] - 106 mg/dL 02/15/2024 5:13 PM CDT [facility] Specimen Type Cap Fingerstick 2023 5:13 PM CDT [facility] Blood BLOOD SPECIMEN / Unknown 02/15/2024 5:13 PM CDT 02/15/2024 5:13 PM CDT Sherie Beltre MD LAB - POINT OF CARE ORDERABLES [facility] [address] [place] [address] * (ABNORMAL) GLUCOSE - POINT OF CARE (02/15/2024 12:09 PM CDT) Glucose WB/POC 186(H) 70 - 106 mg/dL 02/16/2024 2:16 AM CDT [facility] Specimen Type Cap Fingerstick 2023 2:16 AM CDT [facility] Blood BLOOD SPECIMEN / Unknown 02/15/2024 12:09 PM CDT 02/16/2024 2:16 AM CDT Sherie Beltre MD LAB - POINT OF CARE ORDERABLES Performing Organization Address City/[facility] Co de Phone Number [facility] [address] [place] [address] * (ABNORMAL) GLUCOSE - POINT OF CARE (02/15/2024 5:32 AM CDT) Glucose WB/POC 175(H) 70 - 106 mg/dL 02/16/2024 2:16 AM CDT [facility] Specimen Type Venous 02/16/2024 2:16 AM CDT [facility] Blood BLOOD SPECIMEN / Unknown 02/15/2024 5:32 AM CDT 02/16/2024 2:16 AM CDT Sherie Beltre MD LAB - POINT OF CARE ORDERABLES Performing Organization Address [facility] de Phone Number [facility] [id number] [place] [phone] * (ABNORMAL) CBC W AUTO DIFFERENTIAL (02/15/2024 4:23 AM CDT) WBC 11.1(H) 4.0 - 10.7 x10E9/L 02/15/2024 4:43 AM CDT [facility] RBC Count 3.53(L) 4.30 - 5.80 x10E12/L 02/15/2024 4:43 AM CDT [facility] Hemoglobin 10.3(L) 13.3 - 17.5 g/dL 02/15/2024 4:43 AM CDT [facility] Hematocrit 32.3(L) 38.7 - 51.1 % 02/15/2024 4:43 AM CDT [facility] MCV 91.5 80.0 - 98.0 fL 02/15/2024 4:43 AM CDT [facility] MCH 29.2 26.7 - 33.6 pg 02/15/2024 4:43 AM CDT [facility] MCHC 31.9 31.7 - 36.3 g/dL 02/15/2024 4:43 AM CDT [facility] RDW-CV 14.6 11.3 - 14.8 % 02/15/2024 4:43 AM CDT [facility] Platelet Count 319 150 - 420 x10E9/L 02/15/2024 4:43 AM CDT [facility] MPV 9.4 7.8 - 11.4 fL 02/15/2024 4:43 AM CDT [facility] Neutrophil % 62.3 41.0 - 74.0 % 02/15/2024 4:43 AM CDT [facility] Lymphocyte % 25.0 17.0 - 47.0 % 02/15/2024 4:43 AM CDT [facility] Monocyte % 9.1 3.0 - 11.0 % 02/15/2024 4:43 AM CDT [facility] Eosinophil % 2.2 0.0 - 7.0 % 02/15/2024 4:43 AM CDT [facility] Basophil % 0.3 0.0 - 1.6 % 02/15/2024 4:43 AM CDT [facility] Immature Granulocytes % 1.1(H) 0.0 - 1.0 % 02/15/2024 4:43 AM CDT [facility] Neutrophil Absolute 6.94 1.60 - 7.50 x10E9/L 02/15/2024 4:43 AM CDT [facility] Lymphocyte Absolute 2.79 1.00 - 4.40 x10E9/L 02/15/2024 4:43 AM CDT [facility] Monocyte Absolute 1.01(H) 0.15 - 1.00 x10E9/L 02/15/2024 4:43 AM CDT [facility] Eosinophil Absolute 0.25 0.00 - 0.60 x10E9/L 02/15/2024 4:43 AM CDT [facility] Basophil Absolute 0.03 0.00 - 0.13 x10E9/L 02/15/2024 4:43 AM CDT [facility] Blood BLOOD SPECIMEN / Unknown Venipuncture / Unknown 02/15/2024 4:23 AM CDT 02/15/2024 4:36 AM CDT Chuy Siegel DO LAB - HEMATOLOGY ORD ERABLES [facility] [address] [place] [address] * (ABNORMAL) BASIC METABOLIC PANEL (CALCIUM TOTAL) (02/15/2024 4:23 AM CDT) Glucose 141(H) 70 - 105 mg/dL 02/15/2024 5:11 AM CDT [facility] Sodium 140 136 - 145 mmol/L 02/15/2024 5:11 AM CDT [facility] Potassium 4.2 3.5 - 5.1 mmol/L 02/15/2024 5:11 AM CDT [facility] Chloride 101 98 - 107 mmol/L 02/15/2024 5:11 AM CDT [facility] CO2 24 22 - 29 mmol/L 02/15/2024 5:11 AM CDT [facility] Calcium 9.8 8.4 - 10.4 mg/dL 02/15/2024 5:11 AM CDT [facility] Anion Gap 15 6 - 16 mmol/L 02/15/2024 5:11 AM CDT [facility] BUN 42(H) 7 - 26 mg/dL 02/15/2024 5:11 AM CDT [facility] Creatinine 0.90 0.72 - 1.25 mg/dL 02/15/2024 5:11 AM T [facility] eGFR by CKD-EPI >90 >=90 mL/min/1.7 3 m2 02/15/2024 5:11 AM CDT [facility] Blood BLOOD SPECIMEN / Unknown Venipuncture / Unknown 02/15/2024 4:23 AM CDT 02/15/2024 4:36 AM CDT Chuy Siegel DO LAB - CHEMISTRY CHRISTIAN RAZO [facility] [address] [place] [address] * (ABNORMAL) PHOSPHORUS BLOOD (02/15/2024 4:23 AM CDT) Phosphorus 5.4(H) 2.3 - 4.7 mg/dL 02/15/2024 5:11 AM CDT [facility] Blood BLOOD SPECIMEN / Unknown Venipuncture / Unknown 02/15/2024 4:23 AM CDT 02/15/2024 4:36 AM CDT Chuy Siegel DO LAB - CHEMISTRY CHRISTIAN RAZO Performing Organization Address [facility] Co de Phone Number [facility] [address] [place] [phone] * MAGNESIUM BLOOD (02/15/2024 4:23 AM CDT) Magnesium 1.8 1.6 - 2.6 mg/dL 02/15/2024 5:11 AM CDT [facility] Blood BLOOD SPECIMEN / Unknown Venipuncture / Unknown 02/15/2024 4:23 AM CDT 02/15/2024 4:36 AM CDT Chuy Salma Robbin MOSQUEDA LAB - CHEMISTRY CHRISTIAN AARONMILADY Performing Organization Address [facility] de Phone Number [facility] [address] [place] [phone] * (ABNORMAL) GLUCOSE - POINT OF CARE (02/14/2024 11:55 PM CDT) Glucose WB/POC 152(H) 70 - 106 mg/dL 02/15/2024 12:00 AM CDT [facility] Specimen Type Venous 02/15/2024 12:00 AM CDT [facility] Blood BLOOD SPECIMEN / Unknown 02/14/2024 11:55 PM CDT 02/15/2024 12:00 AM CDT Sherie Beltre MD LAB - POINT OF CARE ORDERABLES Performing Organization Address [facility] Co de Phone Number [facility] [address] [place] [phone] * (ABNORMAL) GLUCOSE - POINT OF CARE (02/14/2024 6:23 PM CDT) Glucose WB/POC 245(H) 70 - 106 mg/dL 02/14/2024 6:28 PM CDT [facility] Specimen Type Cap Fingerstick 2023 6:28 PM CDT [facility] Blood BLOOD SPECIMEN / Unknown 02/14/2024 6:23 PM CDT 02/14/2024 6:28 PM CDT Sherie Beltre MD LAB - POINT OF CARE ORDERABLES [facility] [address] [place] [address] * (ABNORMAL) RENAL FUNCTION PANEL (02/14/2024 4:10 PM CDT) Glucose 253(H) 70 - 105 mg/dL 02/14/2024 4:32 PM CDT [facility] Sodium 135(L) 136 - 145 mmol/L 02/14/2024 4:32 PM CDT [facility] Potassium 4.2 3.5 - 5.1 mmol/L 02/14/2024 4:32 PM CDT [facility] Chloride 104 98 - 107 mmol/L 02/14/2024 4:32 PM CDT [facility] CO2 22 22 - 29 mmol/L 02/14/2024 4:32 PM CDT [facility] Calcium 10.0 8.4 - 10.4 mg/dL 02/14/2024 4:32 PM CDT [facility] Anion Gap 9 6 - 16 mmol/L 02/14/2024 4:32 PM CDT [facility] BUN 38(H) 7 - 26 mg/dL 02/14/2024 4:32 PM CDT [facility] Creatinine 0.95 0.72 - 1.25 mg/dL 02/14/2024 4:32 PM CDT [facility] Albumin 2.6(L) 3.4 - 5.0 gm/dL 02/14/2024 4:32 PM CDT [facility] Phosphorus 5.2(H) 2.3 - 4.7 mg/dL 02/14/2024 4:32 PM CDT [facility] eGFR by CKD-EPI 89(L) >=90 mL/min/1.7 3 m2 02/14/2024 4:32 PM CDT [facility] Blood BLOOD SPECIMEN / Unknown Venipuncture / Unknown 02/14/2024 4:10 PM CDT 02/14/2024 4:15 PM CDT Andrea Zamorano MD LAB - CHEMISTRY CHRISTIAN RAZO Performing Organization Address [facility] de Phone Number [facility] [id number] [place] [phone] * (ABNORMAL) GLUCOSE - POINT OF CARE (02/14/2024 12:24 PM CDT) Glucose WB/POC 209(H) 70 - 106 mg/dL 02/14/2024 12:29 PM CDT [facility] Specimen Type Cap Fingerstick 2023 12:29 PM CDT [facility] Blood BLOOD SPECIMEN / Unknown 02/14/2024 12:24 PM CDT 02/14/2024 12:29 PM CDT Sherie Beltre MD LAB - POINT OF CARE ORDERABLES Performing Organization Address [facility] de Phone Number [facility] [address] [place] [phone] * (ABNORMAL) GLUCOSE - POINT OF CARE (02/14/2024 5:31 AM CDT) Pathologist [facility] [place] Glucose WB/POC 185(H) 70 - 106 mg/dL 02/14/2024 5:40 AM CDT [facility] Specimen Type Cap Fingerstick 2023 5:40 AM CDT [facility] Blood BLOOD SPECIMEN / Unknown 02/14/2024 5:31 AM CDT 02/14/2024 5:40 AM CDT Sherie Beltre MD LAB - POINT OF CARE ORDERABLES Performing Organization Address [facility] de Phone Number [facility] [id number] [place] [phone] * (ABNORMAL) CBC W AUTO DIFFERENTIAL (02/14/2024 4:29 AM CDT) Pathologist [facility] [place] WBC 9.7 4.0 - 10.7 x10E9/L 02/14/2024 [...] - 11.4 fL 02/14/2024 4:42 AM CDT [facility] Neutrophil % 64.2 41.0 - 74.0 [...] - 4.40 x10E9/L 02/14/2024 4:42 AM CDT [facility] Monocyte Absolute 0.88 0.15 - 1.00 x10E9/L 02/14/2024 4:42 AM CDT [facility] Eosinophil Absolute 0.31 0.00 - 0.60 x10E9/L 02/14/2024 4:42 AM CDT [facility] Basophil Absolute 0.03 0.00 - 0.13 x10E9/L 02/14/2024 4:42 AM CDT [facility] Blood BLOOD SPECIMEN / Unknown Line Draw / Unknown 02/14/2024 4:29 AM CDT 02/14/2024 4:34 AM CDT Chuy Siegel DO LAB - HEMATOLOGY ORD ERABLES [facility] [address] [place] [address] * (ABNORMAL) BASIC METABOLIC PANEL (CALCIUM TOTAL) (02/14/2024 4:29 AM CDT) Pathologist [facility] Glucose 182(H) 70 - 105 mg/dL 02/14/2024 5:00 AM CDT [facility] Sodium 137 136 - 145 mmol/L 02/14/2024 5:00 AM CDT [facility] Potassium 4.2 3.5 - 5.1 mmol/L 02/14/2024 5:00 AM T [facility] Chloride 106 98 - 107 mmol/L 02/14/2024 5:00 AM CDT [facility] CO2 23 22 - 29 mmol/L 02/14/2024 5:00 AM CDT [facility] Calcium 9.2 8.4 - 10.4 mg/dL 02/14/2024 5:00 AM T [facility] Anion Gap 8 6 - 16 mmol/L 02/14/2024 5:00 AM T [facility] BUN 36(H) 7 - 26 mg/dL 02/14/2024 5:00 AM CDT [facility] Creatinine 0.85 0.72 - 1.25 mg/dL 02/14/2024 5:00 AM T [facility] eGFR by CKD-EPI >90 >=90 mL/min/1.7 3 m2 02/14/2024 5:00 AM CDT [facility] Blood BLOOD SPECIMEN / Unknown Line Draw / Unknown 02/14/2024 4:29 AM CDT 02/14/2024 4:34 AM CDT Chuy Siegel DO LAB - CHEMISTRY CHRISTIAN RAZO Performing Organization Address [facility] Co de Phone Number [facility] [id number] [place] [address] [phone] * PHOSPHORUS BLOOD (02/14/2024 4:29 AM CDT) Phosphorus 4.7 2.3 - 4.7 mg/dL 02/14/2024 5:00 AM CDT [facility] Blood BLOOD SPECIMEN / Unknown Line Draw / Unknown 02/14/2024 4:29 AM CDT 02/14/2024 4:34 AM CDT Chuy Siegel LAB - CHEMISTRY CHRISTIAN RAZO Performing Organization Address [facility] de Phone Number [facility] [id number] [place] [phone] * (ABNORMAL) MAGNESIUM BLOOD (02/14/2024 4:29 AM CDT) Magnesium 1.4(L) 1.6 - 2.6 mg/dL 02/14/2024 5:00 AM CDT [facility] Blood BLOOD SPECIMEN / Unknown Line Draw / Unknown 02/14/2024 4:29 AM CDT 02/14/2024 4:34 AM CDT Chuy Siegel DO LAB - CHEMISTRY CHRISTIAN RAZO Performing Organization Address [facility] de Phone Number [facility] [id number] [place] [phone] * (ABNORMAL) GLUCOSE - POINT OF CARE (02/13/2024 11:52 PM CDT) Glucose WB/POC 171(H) 70 - 106 mg/dL 02/13/2024 11:55 PM CDT [facility] Specimen Type Cap Fingerstick 2023 11:55 PM CDT [facility] Blood BLOOD SPECIMEN / Unknown 02/13/2024 11:52 PM CDT 02/13/2024 11:55 PM CDT Sherie Beltre MD LAB - POINT OF CARE ORDERABLES Performing Organization Address [facility] Co de Phone Number [facility] [id number] [place] [phone] * (ABNORMAL) GLUCOSE - POINT OF CARE (02/13/2024 6:37 PM CDT) Glucose WB/POC 186(H) 70 - 106 mg/dL 02/13/2024 7:39 PM CDT [facility] Specimen Type Cap Fingerstick 2023 7:39 PM CDT [facility] Blood BLOOD SPECIMEN / Unknown 02/13/2024 6:37 PM CDT 02/13/2024 7:39 PM CDT Sherie Beltre MD LAB - POINT OF CARE ORDERABLES Performing Organization Address [facility] Co de Phone Number [facility] [id number] [place] [phone] * (ABNORMAL) GLUCOSE - POINT OF CARE (02/13/2024 12:24 PM CDT) Glucose WB/POC 179(H) 70 - 106 mg/dL 02/13/2024 12:29 PM CDT [facility] Specimen Type Cap Fingerstick 2023 12:29 PM CDT [facility] Blood BLOOD SPECIMEN / Unknown 02/13/2024 12:24 PM CDT 02/13/2024 12:29 PM CDT Sherie Beltre MD LAB - POINT OF CARE ORDERABLES Performing Organization Address City/[facility]/ZIP Co de Phone Number [facility] [id number] [place] [phone] * (ABNORMAL) GLUCOSE - POINT OF CARE (02/13/2024 5:52 AM CDT) Pathologist [facility] [place] Glucose WB/POC 185(H) 70 - 106 mg/dL 02/13/2024 5:53 AM CDT [facility] Specimen Type Cap Fingerstick 2023 5:53 AM CDT [facility] Blood BLOOD SPECIMEN / Unknown 02/13/2024 5:52 AM CDT 02/13/2024 5:53 AM CDT Sherie Beltre MD LAB - POINT OF CARE ORDERABLES Performing Organization Address City/[facility]/ZIP Co de Phone Number [facility] [address] [place] [address] [phone] * SLIDE SCAN HEMATOLOGY (02/13/2024 4:29 AM CDT) Pathologist [facility] RBC Morphology NORMAL 02/13/2024 5:32 AM CDT [facility] Platelet Morphology NORMAL 02/13/2024 5:32 AM CDT [facility] Blood BLOOD SPECIMEN / Unknown Venipuncture / Unknown 02/13/2024 4:29 AM CDT 02/13/2024 4:44 AM CDT Chuy Siegel DO LAB - HEMATOLOGY ORD ERABLES Performing Organization Address [facility] Co de Phone Number [facility] [address] [place] [phone] * (ABNORMAL) CBC W AUTO DIFFERENTIAL (02/13/2024 4:29 AM CDT) Pathologist [facility] [place] WBC 11.6(H) 4.0 - 10.7 x10E9/L 02/13/2024 5:32 AM CDT [facility] RBC Count 3.28(L) 4.30 - 5.80 x10E12/L 02/13/2024 5:32 AM CDT [facility] Hemoglobin 9.7(L) 13.3 - 17.5 g/dL 02/13/2024 5:32 AM CDT [facility] Hematocrit 30.3(L) 38.7 - 51.1 % [...] - 11.4 fL 02/13/2024 5:32 AM CDT [facility] Neutrophil % 63.4 41.0 - 74.0 % 02/13/2024 5:32 AM CDT [facility] Lymphocyte % 22.3 17.0 - 47.0 % 02/13/2024 5:32 AM CDT [facility] Monocyte % 9.2 3.0 - 11.0 % 02/13/2024 5:32 AM CDT [facility] Eosinophil % 3.6 0.0 - 7.0 [...] - 0.13 x10E9/L 02/13/2024 5:32 AM CDT [facility] Blood BLOOD SPECIMEN / Unknown Venipuncture / Unknown 02/13/2024 4:29 AM CDT 02/13/2024 4:44 AM CDT Chuy Siegel DO LAB - HEMATOLOGY ORD ERABLES [facility] [address] [place] [address] * (ABNORMAL) BASIC METABOLIC PANEL (CALCIUM TOTAL) (02/13/2024 4:29 AM CDT) [facility] Glucose 156(H) 70 - 105 mg/dL 02/13/2024 5:15 AM CDT [facility] Sodium 142 136 - 145 mmol/L 02/13/2024 5:15 AM CDT [facility] Potassium 4.6 3.5 - 5.1 mmol/L 02/13/2024 5:15 AM CDT [facility] Chloride 105 98 - 107 mmol/L 02/13/2024 5:15 AM CDT [facility] CO2 24 22 - 29 mmol/L 02/13/2024 5:15 AM CDT [facility] Calcium 8.7 8.4 - 10.4 mg/dL 02/13/2024 5:15 AM CDT [facility] Anion Gap 13 6 - 16 mmol/L 02/13/2024 5:15 AM CDT [facility] BUN 32(H) 7 - 26 mg/dL 02/13/2024 5:15 AM CDT [facility] Creatinine 0.79 0.72 - 1.25 mg/dL 02/13/2024 5:15 AM CDT [facility] eGFR by CKD-EPI >90 >=90 mL/min/1.7 3 m2 02/13/2024 5:15 AM CDT [facility] Blood BLOOD SPECIMEN / Unknown Venipuncture / Unknown 02/13/2024 4:29 AM CDT 02/13/2024 4:44 AM CDT Chuy Siegel DO LAB - CHEMISTRY ORDE RABMILADY Performing Organization Address [facility] de Phone Number [facility] [id number] [place] [phone] * PHOSPHORUS BLOOD (02/13/2024 4:29 AM CDT) Pathologist [facility] Phosphorus 4.4 2.3 - 4.7 mg/dL 02/13/2024 5:15 AM CDT [facility] Blood BLOOD SPECIMEN / Unknown Venipuncture / Unknown 02/13/2024 4:29 AM CDT 02/13/2024 4:44 AM CDT Chuy Siegel DO LAB - CHEMISTRY PYRITESAnirudh RAZO Performing Organization Address [facility] de Phone Number [facility] [address] [place] [phone] * MAGNESIUM BLOOD (02/13/2024 4:29 AM CDT) Pathologist [facility] Magnesium 1.8 1.6 - 2.6 mg/dL 02/13/2024 5:15 AM CDT [facility] Blood BLOOD SPECIMEN / Unknown Venipuncture / Unknown 02/13/2024 4:29 AM CDT 02/13/2024 4:44 AM CDT Chuy Siegel DO LAB - CHEMISTRY PYRITESAnirudh RAZO Performing Organization Address [facility] de Phone Number [facility] [address] [place] [phone] * (ABNORMAL) GLUCOSE - POINT OF CARE (02/12/2024 11:39 PM CDT) Pathologist [facility] [place] Glucose WB/POC 163(H) 70 - 106 mg/dL 02/12/2024 11:40 PM CDT [facility] Specimen Type Cap Fingerstick 2023 11:40 PM CDT [facility] Blood BLOOD SPECIMEN / Unknown 02/12/2024 11:39 PM CDT 02/12/2024 11:40 PM CDT Sherie Beltre MD LAB - POINT OF CARE ORDERABLES Performing Organization Address [facility] de Phone Number [facility] [address] [place] [address] [phone] * (ABNORMAL) GLUCOSE - POINT OF CARE (02/12/2024 6:06 PM CDT) Glucose WB/POC 239(H) 70 - 106 mg/dL 02/12/2024 8:10 PM CDT [facility] Specimen Type Cap Fingerstick 2023 8:10 PM CDT [facility] Blood BLOOD SPECIMEN / Unknown 02/12/2024 6:06 PM CDT 02/12/2024 8:10 PM CDT Sherie Beltre MD LAB - POINT OF CARE ORDERABLES Performing Organization Address [facility] de Phone Number [facility] [address] [place] [phone] * (ABNORMAL) GLUCOSE - POINT OF CARE (02/12/2024 12:30 PM CDT) Pathologist [facility] Glucose WB/POC 167(H) 70 - 106 mg/dL 02/12/2024 12:34 PM CDT [facility] Specimen Type Cap Fingerstick 2023 12:34 PM CDT [facility] Blood BLOOD SPECIMEN / Unknown 02/12/2024 12:30 PM CDT 02/12/2024 12:34 PM CDT Sherie Beltre MD LAB - POINT OF CARE ORDERABLES Performing Organization Address [facility] Co de Phone Number [facility] [id number] [place] [address] [phone] * (ABNORMAL) CBC W AUTO DIFFERENTIAL (02/12/2024 4:58 AM CDT) WBC 10.0 4.0 - 10.7 x10E9/L 02/12/2024 5:16 AM CDT [facility] RBC Count 3.17(L) 4.30 - 5.80 x10E12/L 02/12/2024 5:16 AM CDT [facility] Hemoglobin 9.3(L) 13.3 - 17.5 g/dL 02/12/2024 5:16 AM CDT [facility] Hematocrit 29.0(L) 38.7 - 51.1 % 02/12/2024 5:16 AM CDT [facility] MCV 91.5 80.0 - 98.0 fL 02/12/2024 5:16 AM CDT [facility] MCH 29.3 26.7 - 33.6 pg [...] - 1.00 x10E9/L 02/12/2024 5:16 AM CDT [facility] Eosinophil Absolute 0.41 0.00 - 0.60 x10E9/L 02/12/2024 5:16 AM CDT [facility] Basophil Absolute 0.01 0.00 - 0.13 x10E9/L 02/12/2024 5:16 AM CDT [facility] Blood BLOOD SPECIMEN / Unknown Venipuncture / Unknown 02/12/2024 4:58 AM CDT 02/12/2024 5:03 AM CDT Chuy Siegel DO LAB - HEMATOLOGY ORD ERABLES [facility] [address] [place] [address] * (ABNORMAL) BASIC METABOLIC PANEL (CALCIUM TOTAL) (02/12/2024 4:58 AM CDT) Glucose 166(H) 70 - 105 mg/dL 02/12/2024 5:32 AM CDT [facility] Sodium 140 136 - 145 mmol/L 02/12/2024 5:32 AM CDT [facility] Potassium 3.9 3.5 - 5.1 mmol/L 02/12/2024 5:32 AM CDT [facility] Chloride 112(H) 98 - 107 mmol/L 02/12/2024 5:32 AM CDT [facility] CO2 24 22 - 29 mmol/L 02/12/2024 5:32 AM CDT [facility] Calcium 9.3 8.4 - 10.4 mg/dL 02/12/2024 5:32 AM T [facility] Anion Gap 4(L) 6 - 16 mmol/L 02/12/2024 5:32 AM CDT [facility] BUN 27(H) 7 - 26 mg/dL 02/12/2024 5:32 AM CDT [facility] Creatinine 0.82 0.72 - 1.25 mg/dL 02/12/2024 5:32 AM CDT [facility] eGFR by CKD-EPI >90 >=90 mL/min/1.7 3 m2 02/12/2024 5:32 AM CDT [facility] Blood BLOOD SPECIMEN / Unknown Venipuncture / Unknown 02/12/2024 4:58 AM CDT 02/12/2024 5:03 AM CDT Chuy Siegel DO LAB - CHEMISTRY [facility]IAN RAZO Performing Organization Address [facility] Co de Phone Number [facility] [id number] [place] [address] [phone] * PHOSPHORUS BLOOD (02/12/2024 4:58 AM CDT) Phosphorus 4.6 2.3 - 4.7 mg/dL 02/12/2024 5:32 AM CDT [facility] Blood BLOOD SPECIMEN / Unknown Venipuncture / Unknown 02/12/2024 4:58 AM CDT 02/12/2024 5:03 AM CDT Chuy Siegel DO LAB - CHEMISTRY CHRISTIAN RAZO Performing Organization Address [facility] de Phone Number [facility] [address] [place] [address] [id number] * MAGNESIUM BLOOD (02/12/2024 4:58 AM CDT) Magnesium 1.6 1.6 - 2.6 mg/dL 02/12/2024 5:32 AM CDT [facility] Blood BLOOD SPECIMEN / Unknown Venipuncture / Unknown 02/12/2024 4:58 AM CDT 02/12/2024 5:03 AM CDT Chuy Siegel DO LAB - CHEMISTRY CHRISTIAN RAZO Performing Organization Address [facility] de Phone Number [facility] [id number] [place] [phone] * (ABNORMAL) GLUCOSE - POINT OF CARE (02/12/2024 12:03 AM CDT) Glucose WB/POC 166(H) 70 - 106 mg/dL 02/12/2024 12:04 AM CDT [facility] Specimen Type Cap Fingerstick 2023 12:04 AM CDT [facility] Blood BLOOD SPECIMEN / Unknown 02/12/2024 12:03 AM CDT 02/12/2024 12:04 AM CDT Sherie Beltre MD LAB - POINT OF CARE ORDERABLES Performing Organization Address [facility] de Phone Number [facility] [id number] [place] [phone] * (ABNORMAL) GLUCOSE - POINT OF CARE (02/11/2024 5:07 PM CDT) Glucose WB/POC 213(H) 70 - 106 mg/dL 02/11/2024 5:13 PM CDT [facility] Specimen Type Cap Fingerstick 2023 5:13 PM CDT [facility] Blood BLOOD SPECIMEN / Unknown 02/11/2024 5:07 PM CDT 02/11/2024 5:13 PM CDT Sherie Beltre MD LAB - POINT OF CARE ORDERABLES Performing Organization Address [facility] de Phone Number [facility] [address] [place] [phone] * (ABNORMAL) GLUCOSE - POINT OF CARE (02/11/2024 12:30 PM CDT) Glucose WB/POC 163(H) 70 - 106 mg/dL 02/11/2024 12:32 PM CDT [facility] Specimen Type Cap Fingerstick 2023 12:32 PM CDT [facility] Blood BLOOD SPECIMEN / Unknown 02/11/2024 12:30 PM CDT 02/11/2024 12:32 PM CDT Sherie Beltre MD LAB - POINT OF CARE ORDERABLES Performing Organization Address [facility] de Phone Number [facility] [address] [place] [phone] * (ABNORMAL) GLUCOSE - POINT OF CARE (02/11/2024 6:08 AM CDT) Glucose WB/POC 207(H) 70 - 106 mg/dL 02/11/2024 6:12 AM CDT [facility] Specimen Type Cap Fingerstick 2023 6:12 AM CDT [facility] Blood BLOOD SPECIMEN / Unknown 02/11/2024 6:08 AM CDT 02/11/2024 6:12 AM CDT Sherie Beltre MD LAB - POINT OF CARE ORDERABLES [facility] [address] [place] [address] * (ABNORMAL) CBC W AUTO DIFFERENTIAL (02/11/2024 4:02 AM CDT) WBC 10.3 4.0 - 10.7 x10E9/L 02/11/2024 4:26 AM CDT [facility] RBC Count 3.07(L) 4.30 - 5.80 x10E12/L 02/11/2024 4:26 AM CDT [facility] Hemoglobin 8.9(L) 13.3 - 17.5 g/dL 02/11/2024 4:26 AM CDT [facility] Hematocrit 28.4(L) 38.7 - 51.1 % 02/11/2024 4:26 AM CDT [facility] MCV 92.5 80.0 - 98.0 fL 02/11/2024 4:26 AM CDT [facility] MCH 29.0 26.7 - 33.6 pg 02/11/2024 4:26 AM CDT [facility] MCHC 31.3(L) 31.7 - 36.3 g/dL 02/11/2024 4:26 AM CDT [facility] RDW-CV 14.4 11.3 - 14.8 % 02/11/2024 4:26 AM CDT [facility] Platelet Count 391 150 - 420 x10E9/L 02/11/2024 4:26 AM CDT [facility] MPV 9.6 7.8 - 11.4 fL 02/11/2024 4:26 AM CDT [facility] Neutrophil % 55.6 41.0 - 74.0 % 02/11/2024 4:26 AM CDT [facility] Lymphocyte % 30.0 17.0 - 47.0 % 02/11/2024 4:26 AM CDT [facility] Monocyte % 9.6 3.0 - 11.0 % 02/11/2024 4:26 AM CDT [facility] Eosinophil % 3.4 0.0 - 7.0 % 02/11/2024 4:26 AM CDT [facility] Basophil % 0.3 0.0 - 1.6 % 02/11/2024 4:26 AM CDT [facility] Immature Granulocytes % 1.1(H) 0.0 - 1.0 % 02/11/2024 4:26 AM CDT [facility] Neutrophil Absolute 5.72 1.60 - 7.50 x10E9/L 02/11/2024 4:26 AM CDT [facility] Lymphocyte Absolute 3.09 1.00 - 4.40 x10E9/L 02/11/2024 4:26 AM CDT [facility] Monocyte Absolute 0.99 0.15 - 1.00 x10E9/L 02/11/2024 4:26 AM CDT [facility] Eosinophil Absolute 0.35 0.00 - 0.60 x10E9/L 02/11/2024 4:26 AM CDT [facility] Basophil Absolute 0.03 0.00 - 0.13 x10E9/L 02/11/2024 4:26 AM CDT [facility] Blood BLOOD SPECIMEN / Unknown Venipuncture / Unknown 02/11/2024 4:02 AM CDT 02/11/2024 4:18 AM CDT Chuy Siegel DO LAB - HEMATOLOGY ORD ERABLES [facility] [address] [place] [address] * (ABNORMAL) BASIC METABOLIC PANEL (CALCIUM TOTAL) (02/11/2024 4:02 AM CDT) [facility] Glucose 178(H) 70 - 105 mg/dL 02/11/2024 4:47 AM CDT [facility] Sodium 141 136 - 145 mmol/L 02/11/2024 4:47 AM CDT [facility] Potassium 4.4 3.5 - 5.1 mmol/L 02/11/2024 4:47 AM CDT [facility] Chloride 113(H) 98 - 107 mmol/L 02/11/2024 4:47 AM CDT [facility] CO2 23 22 - 29 mmol/L 02/11/2024 4:47 AM CDT [facility] Calcium 9.5 8.4 - 10.4 mg/dL 02/11/2024 4:47 AM CDT [facility] Anion Gap 5(L) 6 - 16 mmol/L 02/11/2024 4:47 AM CDT [facility] BUN 31(H) 7 - 26 mg/dL 02/11/2024 4:47 AM CDT [facility] Creatinine 0.75 0.72 - 1.25 mg/dL 02/11/2024 4:47 AM CDT [facility] eGFR by CKD-EPI >90 >=90 mL/min/1.7 3 m2 02/11/2024 4:47 AM CDT [facility] Blood BLOOD SPECIMEN / Unknown Venipuncture / Unknown 02/11/2024 4:02 AM CDT 02/11/2024 4:18 AM CDT Chuy Siegel DO LAB - CHEMISTRY ORDE [facility] Performing Organization Address City/[facility]/ZIP Co de Phone Number [facility] [address] [place] [address] * PHOSPHORUS BLOOD (02/11/2024 4:02 AM CDT) Phosphorus 4.5 2.3 - 4.7 mg/dL 02/11/2024 4:47 AM CDT [facility] Blood BLOOD SPECIMEN / Unknown Venipuncture / Unknown 02/11/2024 4:02 AM CDT 02/11/2024 4:18 AM CDT Chuy Siegel DO LAB - CHEMISTRY ORDE [facility] Performing Organization Address [facility]/ZIP Co de Phone Number [facility] [address] [place] [address] * MAGNESIUM BLOOD (02/11/2024 4:02 AM CDT) Magnesium 1.8 1.6 - 2.6 mg/dL 02/11/2024 4:47 AM CDT [facility] Blood BLOOD SPECIMEN / Unknown Venipuncture / Unknown 02/11/2024 4:02 AM CDT 02/11/2024 4:18 AM CDT Cuhy Siegel DO LAB - CHEMISTRY CHRISTIAN RAZO Performing Organization Address [facility] Co de Phone Number [facility] [address] [place] [address] * (ABNORMAL) GLUCOSE - POINT OF CARE (02/11/2024 12:33 AM CDT) [facility] Glucose WB/POC 179(H) 70 - 106 mg/dL 02/11/2024 12:38 AM CDT [facility] Specimen Type Cap Fingerstick 2023 12:38 AM CDT [facility] Blood BLOOD SPECIMEN / Unknown 02/11/2024 12:33 AM CDT 02/11/2024 12:38 AM CDT Sherie Beltre MD LAB - POINT OF CARE ORDERABLES Performing Organization Address [facility] de Phone Number [facility] [address] [place] [address] * (ABNORMAL) GLUCOSE - POINT OF CARE (02/10/2024 5:07 PM CDT) [facility] Glucose WB/POC 168(H) 70 - 106 mg/dL 02/10/2024 5:11 PM CDT [facility] Specimen Type Cap Fingerstick 2023 5:11 PM CDT [facility] Blood BLOOD SPECIMEN / Unknown 02/10/2024 5:07 PM CDT 02/10/2024 5:11 PM CDT Sherie Beltre MD LAB - POINT OF CARE ORDERABLES [facility] [address] [place] [address] * (ABNORMAL) GLUCOSE - POINT OF CARE (02/10/2024 12:42 PM CDT) Glucose WB/POC 171(H) 70 - 106 mg/dL 02/10/2024 12:47 PM CDT [facility] Specimen Type Cap Fingerstick 2023 12:47 PM CDT [facility] Blood BLOOD SPECIMEN / Unknown 02/10/2024 12:42 PM CDT 02/10/2024 12:47 PM CDT Sherie Beltre MD LAB - POINT OF CARE ORDERABLES [facility] [address] [place] [address] * XR CHEST 1VW PORTABLE (02/10/2024 11:26 [...] DATE/TIME OF EXAM: ??02/10/2024 11:26 AM, LOCATION ??[facility] INDICATION: 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) HISTORY: [...] PORTABLE, DATE/TIME OF EXAM: 02/10/2024 11:26AM, LOCATION [facility] INDICATION: 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) HISTORY: [...] Carlos Sultana MD on 02/10/2024 11:37 AM hCuy Siegel DO DIAGNOSTIC IMAGING O RDERABLES * [...] POINT OF CARE (02/10/2024 6:14 AM CDT) [facility] Glucose WB/POC 214(H) 70 - 106 mg/dL 02/10/2024 6:25 AM CDT [facility] Specimen Type Cap Fingerstick 2023 6:25 AM CDT [facility] Blood BLOOD SPECIMEN / Unknown 02/10/2024 6:14 AM CDT 02/10/2024 6:25 AM CDT Sherie Beltre MD LAB - POINT OF CARE ORDERABLES Performing Organization Address City/State/[facility] Co de Phone Number [facility] [address] [place] [address] * (ABNORMAL) CBC W AUTO DIFFERENTIAL (02/10/2024 3:24 AM CDT) [facility] WBC 9.9 4.0 - 10.7 x10E9/L 02/10/2024 3:52 AM CDT [facility] RBC Count 2.98(L) 4.30 - 5.80 x10E12/L 02/10/2024 3:52 AM CDT [facility] Hemoglobin 8.6(L) 13.3 - 17.5 g/dL 02/10/2024 3:52 AM CDT [facility] Hematocrit 27.6(L) 38.7 - 51.1 % 02/10/2024 3:52 AM CDT [facility] MCV 92.6 80.0 - 98.0 fL 02/10/2024 3:52 AM CDT [facility] MCH 28.9 26.7 [...] - 0.13 x10E9/L 02/10/2024 3:52 AM CDT [facility] Blood BLOOD SPECIMEN / Unknown Venipuncture / Unknown 02/10/2024 3:24 AM CDT 02/10/2024 3:45 AM CDT Chuy Siegel DO LAB - HEMATOLOGY ORD ERABLES Performing Organization Address City/[facility]/ZIP Co de Phone Number [facility] [address] [place] [address] * (ABNORMAL) BASIC METABOLIC PANEL (CALCIUM TOTAL) (02/10/2024 3:24 AM CDT) Pathologist [facility] Glucose 126(H) 70 - 105 mg/dL 02/10/2024 4:13 AM CDT [facility] Sodium 143 136 - 145 mmol/L 02/10/2024 4:13 AM CDT [facility] Potassium 3.6 3.5 - 5.1 mmol/L 02/10/2024 4:13 AM CDT [facility] Chloride 112(H) 98 - 107 mmol/L 02/10/2024 4:13 AM CDT [facility] CO2 23 22 - 29 mmol/L 02/10/2024 4:13 AM CDT [facility] Calcium 9.8 8.4 - 10.4 mg/dL 02/10/2024 4:13 AM CDT [facility] Anion Gap 8 6 - 16 mmol/L 02/10/2024 4:13 AM CDT [facility] BUN 29(H) 7 - 26 mg/dL 02/10/2024 4:13 AM CDT [facility] Creatinine 0.83 0.72 - 1.25 mg/dL 02/10/2024 4:13 AM CDT [facility] eGFR by CKD-EPI >90 >=90 mL/min/1.7 3 m2 02/10/2024 4:13 AM CDT [facility] Blood BLOOD SPECIMEN / Unknown Venipuncture / Unknown 02/10/2024 3:24 AM CDT 02/10/2024 3:45 AM CDT Chuy Siegel DO LAB - CHEMISTRY ORDE RABMILADY [facility] [address] [place] [address] * PHOSPHORUS BLOOD (02/10/2024 3:24 AM CDT) Phosphorus 3.7 2.3 - 4.7 mg/dL 02/10/2024 4:13 AM CDT [facility] Blood BLOOD SPECIMEN / Unknown Venipuncture / Unknown 02/10/2024 3:24 AM CDT 02/10/2024 3:45 AM CDT Chuy Siegel DO LAB - CHEMISTRY ORDAnirudh RAZO Performing Organization Address City/[facility]/ZIP Co de Phone Number [facility] [address] [place], [place] [phone] * MAGNESIUM BLOOD (02/10/2024 3:24 AM CDT) Pathologist [facility] Magnesium 1.8 1.6 - 2.6 mg/dL 02/10/2024 4:13 AM CDT [facility] Blood BLOOD SPECIMEN / Unknown Venipuncture / Unknown 02/10/2024 3:24 AM CDT 02/10/2024 3:45 AM CDT Chuy Salma Robbin [facility] LAB - CHEMISTRY ORDAnirudh RAZO Performing Organization Address [facility] Co de Phone Number [facility] [address] [place] [address] * (ABNORMAL) GLUCOSE - POINT OF CARE (02/10/2024 12:07 AM CDT) Pathologist [facility] Glucose WB/POC 140(H) 70 - 106 mg/dL 02/10/2024 3:45 AM CDT [facility] Specimen Type Cap Fingerstick 2023 3:45 AM CDT [facility] Blood BLOOD SPECIMEN / Unknown 02/10/2024 12:07 AM CDT 02/10/2024 3:45 AM CDT Sherie Beltre MD LAB - POINT OF CARE ORDERABLES [facility] [id number] [place] [phone] * (ABNORMAL) GLUCOSE - POINT OF CARE (02/09/2024 5:28 PM CDT) Pathologist [facility] Glucose WB/POC 147(H) 70 - 106 mg/dL 02/09/2024 5:32 PM CDT [facility] Specimen Type Cap Fingerstick 2023 5:32 PM CDT [facility] Blood BLOOD SPECIMEN / Unknown 02/09/2024 5:28 PM CDT 02/09/2024 5:32 PM CDT Sherie Beltre MD LAB - POINT OF CARE ORDERABLES Performing Organization Address City/[facility] Co de Phone Number [facility] [address] [place] [phone] * (ABNORMAL) GLUCOSE - POINT OF CARE (02/09/2024 12:22 PM CDT) [facility] Glucose WB/POC 193(H) 70 - 106 mg/dL 02/09/2024 12:48 PM CDT [facility] Specimen Type Cap Fingerstick 2023 12:48 PM CDT [facility] Blood BLOOD SPECIMEN / Unknown 02/09/2024 12:22 PM CDT 02/09/2024 12:48 PM CDT Sherie Beltre MD LAB - POINT OF CARE ORDERABLES [facility] [address] [place] [address] * (ABNORMAL) CBC W AUTO DIFFERENTIAL (02/09/2024 8:36 AM CDT) Pathologist [facility] WBC 11.0(H) 4.0 - 10.7 x10E9/L 02/09/2024 8:43 AM CDT [facility] RBC Count 3.01(L) 4.30 - 5.80 x10E12/L 02/09/2024 8:43 AM CDT [facility] Hemoglobin 8.7(L) 13.3 - 17.5 g/dL [...] - 420 x10E9/L 02/09/2024 8:43 AM CDT [facility] MPV 9.8 7.8 [...] - 0.60 x10E9/L 02/09/2024 8:43 AM CDT [facility] Basophil Absolute 0.03 0.00 - 0.13 x10E9/L 02/09/2024 8:43 AM CDT [facility] Blood BLOOD SPECIMEN / Unknown Line Draw / Unknown 02/09/2024 8:36 AM CDT 02/09/2024 8:40 AM CDT Chuy Siegel DO LAB - HEMATOLOGY ORD ERABLES Performing Organization Address [facility] de Phone Number [facility] [address] [place] [address] * (ABNORMAL) GLUCOSE - POINT OF CARE (02/09/2024 6:05 AM CDT) Glucose WB/POC 162(H) 70 - 106 mg/dL 02/09/2024 6:07 AM CDT [facility] Specimen Type Cap Fingerstick 2023 6:07 AM CDT [facility] Blood BLOOD SPECIMEN / Unknown 02/09/2024 6:05 AM CDT 02/09/2024 6:07 AM CDT Sherie Beltre MD LAB - POINT OF CARE ORDERABLES Performing Organization Address [facility] de Phone Number [facility] [address] [place] [address] * MAGNESIUM BLOOD (02/09/2024 4:41 AM CDT) Magnesium 1.7 1.6 - 2.6 mg/dL 02/09/2024 5:19 AM CDT [facility] Blood BLOOD SPECIMEN / Unknown Venipuncture / Unknown 02/09/2024 4:41 AM CDT 02/09/2024 4:58 AM CDT Travis Bhat [employer] LAB - CHEMISTRY ORDERABLES Performing Organization Address [facility] Co de Phone Number [facility] [id number] [place] [address] [phone] * (ABNORMAL) BASIC METABOLIC PANEL (CALCIUM TOTAL) (02/09/2024 4:41 AM CDT) Glucose 112(H) 70 - 105 mg/dL 02/09/2024 5:19 AM CDT [facility] Sodium 142 136 - 145 mmol/L 02/09/2024 5:19 AM CDT [facility] Potassium 3.8 3.5 - 5.1 mmol/L 02/09/2024 5:19 AM CDT [facility] Chloride 110(H) 98 - 107 mmol/L 02/09/2024 5:19 AM CDT [facility] CO2 24 22 - 29 mmol/L 02/09/2024 5:19 AM CDT [facility] Calcium 9.4 8.4 - 10.4 mg/dL 02/09/2024 5:19 AM CDT [facility] Anion Gap 8 6 - 16 mmol/L 02/09/2024 5:19 AM CDT [facility] BUN 33(H) 7 - 26 mg/dL 02/09/2024 5:19 AM CDT [facility] Creatinine 0.89 0.72 - 1.25 mg/dL 02/09/2024 5:19 AM CDT [facility] eGFR by CKD-EPI >90 >=90 mL/min/1.7 3 m2 02/09/2024 5:19 AM CDT [facility] Blood BLOOD SPECIMEN / Unknown Venipuncture / Unknown 02/09/2024 4:41 AM CDT 02/09/2024 4:58 AM CDT Chuy Siegel DO LAB - CHEMISTRY SARAHE DUNG [facility] [address] [place] [address] * MAGNESIUM BLOOD (02/09/2024 12:30 AM CDT) Magnesium 1.7 1.6 - 2.6 mg/dL 02/09/2024 12:56 AM CDT [facility] Blood BLOOD SPECIMEN / Unknown Venipuncture / Unknown 02/09/2024 12:30 AM CDT 02/09/2024 12:35 AM CDT Travis Bhat [employer] LAB - CHEMISTRY ORDERABLES Performing Organization Address [facility] Co de Phone Number [facility] [address] [place] [phone] * PHOSPHORUS BLOOD (02/09/2024 12:30 AM CDT) Phosphorus 3.2 2.3 - 4.7 mg/dL 02/09/2024 12:56 AM CDT [facility] Blood BLOOD SPECIMEN / Unknown Venipuncture / Unknown 02/09/2024 12:30 AM CDT 02/09/2024 12:35 AM CDT Travis Bhat [employer] LAB - CHEMISTRY ORDERABLES Performing Organization Address [facility] Co de Phone Number [facility] [address] [place] [phone] * (ABNORMAL) GLUCOSE - POINT OF CARE (02/09/2024 12:09 AM CDT) Glucose WB/POC 188(H) 70 - 106 mg/dL 02/09/2024 6:07 AM CDT [facility] Specimen Type Cap Fingerstick 2023 6:07 AM CDT [facility] Blood BLOOD SPECIMEN / Unknown 02/09/2024 12:09 AM CDT 02/09/2024 6:07 AM CDT Sherie Beltre MD LAB - POINT OF CARE ORDERABLES Performing Organization Address [facility] Co de Phone Number [facility] [address] [place] [phone] * (ABNORMAL) GLUCOSE - POINT OF CARE (02/08/2024 6:13 PM CDT) Glucose WB/POC 212(H) 70 - 106 mg/dL 02/08/2024 11:53 PM CDT [facility] Specimen Type Cap Fingerstick 2023 11:53 PM CDT [facility] Blood BLOOD SPECIMEN / Unknown 02/08/2024 6:13 PM CDT 02/08/2024 11:53 PM CDT Sherie Beltre MD LAB - POINT OF CARE ORDERABLES Performing Organization Address [facility] Co de Phone Number [facility] [address] [place] [address] * AMMONIA (02/08/2024 11:53 AM CDT) Ammonia 33 18 - 72 umol/L 02/08/2024 12:16 PM CDT [facility] Blood BLOOD SPECIMEN / Unknown Venipuncture / Unknown 02/08/2024 11:53 AM CDT 02/08/2024 12:02 PM CDT Chuy Siegel DO LAB - CHEMISTRY CHRISTIAN RAZO Performing Organization Address [facility] de Phone Number [facility] [id number] [place] [phone] * (ABNORMAL) BASIC METABOLIC PANEL (CALCIUM TOTAL) (02/08/2024 11:53 AM CDT) Glucose 199(H) 70 - 105 mg/dL 02/08/2024 12:25 PM CDT [facility] Sodium 139 136 - 145 mmol/L 02/08/2024 12:25 PM CDT [facility] Potassium 3.9 3.5 - 5.1 mmol/L 02/08/2024 12:25 PM CDT [facility] Chloride 107 98 - 107 mmol/L 02/08/2024 12:25 PM CDT [facility] CO2 24 22 - 29 mmol/L 02/08/2024 12:25 PM CDT [facility] Calcium 9.6 8.4 - 10.4 mg/dL 02/08/2024 12:25 PM CDT [facility] Anion Gap 8 6 - 16 mmol/L 02/08/2024 12:25 PM CDT [facility] BUN 37(H) 7 - 26 mg/dL 02/08/2024 12:25 PM CDT [facility] Creatinine 0.87 0.72 - 1.25 mg/dL 02/08/2024 12:25 PM CDT [facility] eGFR by CKD-EPI >90 >=90 mL/min/1.7 3 m2 02/08/2024 12:25 PM CDT [facility] Blood BLOOD SPECIMEN / Unknown Venipuncture / Unknown 02/08/2024 11:53 AM CDT 02/08/2024 12:02 PM CDT Chuy Siegel DO LAB - CHEMISTRY ORDE DUNG Performing Organization Address City/[facility]/ZIP Co de Phone Number [facility] [id number] [place] [id number] * MAGNESIUM BLOOD (02/08/2024 11:53 AM CDT) Magnesium 1.8 1.6 - 2.6 mg/dL 02/08/2024 12:25 PM CDT [facility] Blood BLOOD SPECIMEN / Unknown Venipuncture / Unknown 02/08/2024 11:53 AM CDT 02/08/2024 12:02 PM CDT Travis Bhat [employer] LAB - CHEMISTRY ORDERABLES Performing Organization Address [facility] Co de Phone Number [facility] [address] [place] [address] [phone] * PHOSPHORUS BLOOD (02/08/2024 11:53 AM CDT) Phosphorus 3.6 2.3 - 4.7 mg/dL 02/08/2024 12:25 PM CDT [facility] Blood BLOOD SPECIMEN / Unknown Venipuncture / Unknown 02/08/2024 11:53 AM CDT 02/08/2024 12:02 PM CDT Travis Bhat [employer] LAB - CHEMISTRY ORDERABLES Performing Organization Address [facility]/ZIP Co de Phone Number [facility] [id number] [place] [phone] * (ABNORMAL) GLUCOSE - POINT OF CARE (02/08/2024 11:05 AM CDT) Glucose WB/POC 178(H) 70 - 106 mg/dL 02/08/2024 11:09 AM CDT [facility] Specimen Type Cap Fingerstick 2023 11:09 AM CDT [facility] LABORATORY Blood BLOOD SPECIMEN / Unknown 02/08/2024 11:05 AM CDT 02/08/2024 11:09 AM CDT Sherie Beltre MD LAB - POINT OF CARE ORDERABLES [facility] [id number] [place] [address] * (ABNORMAL) GLUCOSE - POINT OF CARE (02/08/2024 6:36 AM CDT) Pathologist [facility] [place] Glucose WB/POC 200(H) 70 - 106 mg/dL 02/08/2024 6:41 AM CDT [facility] Specimen Type Cap Fingerstick 2023 6:41 AM CDT [facility] Blood BLOOD SPECIMEN / Unknown 02/08/2024 6:36 AM CDT 02/08/2024 6:41 AM CDT Sherie Beltre MD LAB - POINT OF CARE ORDERABLES [facility] [id number] [place] [phone] * (ABNORMAL) HEPATIC FUNCTION PANEL (02/08/2024 5:26 AM CDT) Alkaline Phosphatase 193(H) 40 - 150 U/L 02/08/2024 9:54 AM CDT [facility] ALT 73(H) 0 - 55 U/L 02/08/2024 9:54 AM CDT [facility] AST 62(H) 5 - 34 U/L 02/08/2024 9:54 AM CDT [facility] Protein Total 8.0 6.4 - 8.3 gm/dL 02/08/2024 9:54 AM CDT [facility] Albumin 2.1(L) 3.4 - 5.0 gm/dL 02/08/2024 9:54 AM CDT [facility] Bilirubin Total 0.3 0.2 - 1.2 mg/dL 02/08/2024 9:54 AM CDT [facility] Bilirubin Direct 0.163 0.10 - 0.50 mg/dL 02/08/2024 9:54 AM CDT [facility] Blood BLOOD SPECIMEN / Unknown Line Draw / Unknown 02/08/2024 5:26 AM CDT 02/08/2024 5:37 AM CDT Chuy Siegel DO LAB - CHEMISTRY CHRISTIAN RAZO Performing Organization Address [facility] Co de Phone Number [facility] [address] [place] [phone] * TSH REFLEX FREE T4 (02/08/2024 5:26 AM CDT) Pathologist [facility] [place] TSH 1.794 0.350 - 4.940 uIU/mL 02/08/2024 10:12 AM CDT [facility] Blood BLOOD SPECIMEN / Unknown Line Draw / Unknown 02/08/2024 5:26 AM CDT 02/08/2024 5:37 AM CDT Chuy Siegel DO LAB - CHEMISTRY CHRISTIAN RZAO Performing Organization Address [facility] de Phone Number [facility] [address] [place] [phone] * SLIDE SCAN HEMATOLOGY (02/08/2024 5:26 AM CDT) RBC Morphology NORMAL 02/08/2024 6:14 AM CDT [facility] Platelet Morphology NORMAL 02/08/2024 6:14 AM CDT [facility] Blood BLOOD SPECIMEN / Unknown Line Draw / Unknown 02/08/2024 5:26 AM CDT 02/08/2024 5:37 AM CDT Iggy Cabrera MD LAB - HEMATOLOGY ORDERABLES Performing Organization Address City/[facility] Co de Phone Number [facility] [address] [place] [address] * (ABNORMAL) CBC W AUTO DIFFERENTIAL (02/08/2024 5:26 AM CDT) [facility] Signature WBC 14.1(H) 4.0 - 10.7 x10E9/L 02/08/2024 6:14 AM CDT [facility] RBC Count 3.35(L) 4.30 - 5.80 x10E12/L 02/08/2024 6:14 AM CDT [facility] Hemoglobin 9.9(L) 13.3 - 17.5 g/dL 02/08/2024 6:14 AM CDT [facility] Hematocrit 30.6(L) 38.7 - 51.1 % 02/08/2024 6:14 AM CDT [facility] MCV 91.3 80.0 - 98.0 fL 02/08/2024 6:14 AM CDT [facility] MCH 29.6 26.7 - 33.6 pg 02/08/2024 6:14 AM CDT [facility] MCHC 32.4 31.7 - 36.3 g/dL 02/08/2024 6:14 AM CDT [facility] RDW-CV 14.3 11.3 - 14.8 % 02/08/2024 6:14 AM CDT [facility] Platelet Count 368 150 - 420 x10E9/L 02/08/2024 6:14 AM CDT [facility] MPV 9.8 7.8 - 11.4 fL 02/08/2024 6:14 AM CDT [facility] Neutrophil % 72.4 41.0 - 74.0 % 02/08/2024 6:14 AM CDT [facility] Lymphocyte % 12.8(L) 17.0 - 47.0 % 02/08/2024 6:14 AM CDT [facility] Monocyte % 11.3(H) 3.0 - 11.0 % 02/08/2024 6:14 AM CDT [facility] Eosinophil % 2.6 0.0 - 7.0 % 02/08/2024 6:14 AM CDT [facility] Basophil % 0.2 0.0 - 1.6 % 02/08/2024 6:14 AM CDT [facility] Immature Granulocytes % 0.7 0.0 - 1.0 % 02/08/2024 6:14 AM CDT [facility] Neutrophil Absolute 10.20(H) 1.60 - 7.50 x10E9/L 02/08/2024 6:14 AM CDT [facility] Lymphocyte Absolute 1.81 1.00 - 4.40 x10E9/L 02/08/2024 6:14 AM CDT [facility] Monocyte Absolute 1.60(H) 0.15 - 1.00 x10E9/L 02/08/2024 6:14 AM CDT [facility] Eosinophil Absolute 0.36 0.00 - 0.60 x10E9/L 02/08/2024 6:14 AM CDT [facility] Basophil Absolute 0.03 0.00 - 0.13 x10E9/L 02/08/2024 6:14 AM CDT [facility] Blood BLOOD SPECIMEN / Unknown Line Draw / Unknown 02/08/2024 5:26 AM CDT 02/08/2024 5:37 AM CDT Iggy Cabrera MD LAB - HEMATOLOGY ORDERABLES [facility] [address] [place] [address] * (ABNORMAL) BASIC METABOLIC PANEL (CALCIUM TOTAL) (02/08/2024 5:26 AM CDT) Glucose 178(H) 70 - 105 mg/dL 02/08/2024 6:05 AM CDT [facility] Sodium 141 136 - 145 mmol/L 02/08/2024 6:05 AM CDT [facility] Potassium 3.9 3.5 - 5.1 mmol/L 02/08/2024 6:05 AM CDT [facility] Chloride 104 98 - 107 mmol/L 02/08/2024 6:05 AM CDT [facility] CO2 24 22 - 29 mmol/L 02/08/2024 6:05 AM CDT [facility] Calcium 9.7 8.4 - 10.4 mg/dL 02/08/2024 6:05 AM CDT [facility] Anion Gap 13 6 - 16 mmol/L 02/08/2024 6:05 AM CDT [facility] BUN 38(H) 7 - 26 mg/dL 02/08/2024 6:05 AM CDT [facility] Creatinine 0.95 0.72 - 1.25 mg/dL 02/08/2024 6:05 AM CDT [facility] eGFR by CKD-EPI 89(L) >=90 mL/min/1.7 3 m2 02/08/2024 6:05 AM CDT [facility] Blood BLOOD SPECIMEN / Unknown Line Draw / Unknown 02/08/2024 5:26 AM CDT 02/08/2024 5:37 AM CDT Chuy Siegel DO LAB - CHEMISTRY CHRISTIAN RAZO [facility] [address] [place] [address] * (ABNORMAL) BASIC METABOLIC PANEL (CALCIUM TOTAL) (02/08/2024 12:11 AM CDT) Glucose 204(H) 70 - 105 mg/dL 02/08/2024 12:38 AM CDT [facility] Sodium 140 136 - 145 mmol/L 02/08/2024 12:38 AM CDT [facility] Potassium 4.1 3.5 - 5.1 mmol/L 02/08/2024 12:38 AM CDT [facility] Chloride 103 98 - 107 mmol/L 02/08/2024 12:38 AM CDT [facility] CO2 23 22 - 29 mmol/L 02/08/2024 12:38 AM CDT [facility] Calcium 8.8 8.4 - 10.4 mg/dL 02/08/2024 12:38 AM CDT [facility] Anion Gap 14 6 - 16 mmol/L 02/08/2024 12:38 AM CDT [facility] BUN 40(H) 7 - 26 mg/dL 02/08/2024 12:38 AM CDT [facility] Creatinine 1.12 0.72 - 1.25 mg/dL 02/08/2024 12:38 AM CDT [facility] eGFR by CKD-EPI 73(L) >=90 mL/min/1.7 3 m2 02/08/2024 12:38 AM CDT [facility] Blood BLOOD SPECIMEN / Unknown Line Draw / Unknown 02/08/2024 12:11 AM CDT 02/08/2024 12:17 AM CDT Iggy Cabrera MD LAB - CHEMISTRY ORDERABLES Performing Organization Address [facility] Co de Phone Number [facility] [address] [place] [phone] * MAGNESIUM BLOOD (02/08/2024 12:11 AM CDT) Magnesium 1.9 1.6 - 2.6 mg/dL 02/08/2024 12:38 AM CDT [facility] Blood BLOOD SPECIMEN / Unknown Line Draw / Unknown 02/08/2024 12:11 AM CDT 02/08/2024 12:17 AM CDT Travis Bhat [employer] INTER[employer]AFER-BUNDLE TIER LAB - CHEMISTRY ORDERABLES Performing Organization Address [facility] de Phone Number [facility] [address] [place] [address] * PHOSPHORUS BLOOD (02/08/2024 12:11 AM CDT) Phosphorus 3.8 2.3 - 4.7 mg/dL 02/08/2024 12:38 AM CDT [facility] Blood BLOOD SPECIMEN / Unknown Line Draw / Unknown 02/08/2024 12:11 AM CDT 02/08/2024 12:17 AM CDT Travis Bhat [employer]ER-BUNDLE TIER LAB - CHEMISTRY ORDERABLES Performing Organization Address [facility] de Phone Number [facility] [address] [place] [address] * (ABNORMAL) GLUCOSE - POINT OF CARE (02/08/2024 12:08 AM CDT) Glucose WB/POC 195(H) 70 - 106 mg/dL 02/08/2024 12:14 AM CDT [facility] Specimen Type Cap Fingerstick 2023 12:14 AM CDT [facility] Blood BLOOD SPECIMEN / Unknown 02/08/2024 12:08 AM CDT 02/08/2024 12:14 AM CDT Sherie Beltre MD LAB - POINT OF CARE ORDERABLES Performing Organization Address [facility] Co de Phone Number [facility] [id number] [place] [address] * (ABNORMAL) GLUCOSE - POINT OF CARE (02/07/2024 5:55 PM CDT) Glucose WB/POC 218(H) 70 - 106 mg/dL 02/07/2024 6:00 PM CDT [facility] Specimen Type Arterial 02/07/2024 6:00 PM CDT [facility] Blood BLOOD SPECIMEN / Unknown 02/07/2024 5:55 PM CDT 02/07/2024 6:00 PM CDT Sherie Beltre MD LAB - POINT OF CARE ORDERABLES Performing Organization Address [facility] Co de Phone Number [facility] [address] [place] [phone] * (ABNORMAL) BASIC METABOLIC PANEL (CALCIUM TOTAL) (02/07/2024 3:34 PM CDT) Glucose 202(H) 70 - 105 mg/dL 02/07/2024 4:00 PM CDT [facility] Sodium 137 136 - 145 mmol/L 02/07/2024 4:00 PM CDT [facility] Potassium 4.3 3.5 - 5.1 mmol/L 02/07/2024 4:00 PM CDT [facility] Chloride 103 98 - 107 mmol/L 02/07/2024 4:00 PM CDT [facility] CO2 24 22 - 29 mmol/L 02/07/2024 4:00 PM CDT [facility] Calcium 9.5 8.4 - 10.4 mg/dL 02/07/2024 4:00 PM CDT [facility] Anion Gap 10 6 - 16 mmol/L 02/07/2024 4:00 PM CDT [facility] BUN 38(H) 7 - 26 mg/dL 02/07/2024 4:00 PM CDT [facility] Creatinine 1.11 0.72 - 1.25 mg/dL 02/07/2024 4:00 PM CDT [facility] eGFR by CKD-EPI 74(L) >=90 mL/min/1.7 3 m2 02/07/2024 4:00 PM CDT [facility] Blood BLOOD SPECIMEN / Unknown Venipuncture / Unknown 02/07/2024 3:34 PM CDT 02/07/2024 3:40 PM CDT Chuy Siegel DO LAB - CHEMISTRY CHRISTIAN RAZO [facility] [address] [place] [address] * MRI BRAIN WO CONTRAST (02/07/2024 3:06 [...] - 4.7 mg/dL 02/07/2024 12:41 PM CDT [facility] Blood BLOOD SPECIMEN / Unknown Venipuncture / Unknown 02/07/2024 12:09 PM CDT 02/07/2024 12:17 PM CDT Travis Bhat [employer]ER-[employer]UNDLE TIER LAB - CHEMISTRY ORDERABLES Performing Organization Address City/[facility]/ZIP Co de Phone Number [facility] [address] [place] [phone] * (ABNORMAL) GLUCOSE - POINT OF CARE (02/07/2024 11:52 AM CDT) Glucose WB/POC 201(H) 70 - 106 mg/dL 02/07/2024 11:57 AM CDT [facility] Specimen Type Arterial 02/07/2024 11:57 AM CDT [facility] Blood BLOOD SPECIMEN / Unknown 02/07/2024 11:52 AM CDT 02/07/2024 11:57 AM CDT Sherie Beltre MD LAB - POINT OF CARE ORDERABLES Performing Organization Address City/[facility] Co de Phone Number [facility] [id number] [place] [phone] * (ABNORMAL) GLUCOSE - POINT OF CARE (02/07/2024 6:18 AM CDT) Glucose WB/POC 248(H) 70 - 106 mg/dL 02/07/2024 7:23 AM CDT [facility] Specimen Type Cap Fingerstick 2023 7:23 AM CDT [facility] Blood BLOOD SPECIMEN / Unknown 02/07/2024 6:18 AM CDT 02/07/2024 7:23 AM CDT Sherie Beltre MD LAB - POINT OF CARE ORDERABLES Performing Organization Address City/[facility]/ZIP Co de Phone Number [facility] [address] [place], [place] [id number] * SLIDE SCAN HEMATOLOGY (02/07/2024 4:22 AM CDT) Pathologist [facility] [place] RBC Morphology RED CELL INDICIES CONFIRMED 02/07/2024 5:25 AM CDT [facility] Blood BLOOD SPECIMEN / Unknown Line Draw / Unknown 02/07/2024 4:22 AM CDT 02/07/2024 4:27 AM CDT Iggy Cabrera MD LAB - HEMATOLOGY ORDERABLES Performing Organization Address [facility] Co de Phone Number [facility] [address] [place], [place] [phone] * (ABNORMAL) CBC W AUTO DIFFERENTIAL (02/07/2024 4:22 AM CDT) Pathologist [facility] [place] WBC 17.4(H) 4.0 - 10.7 x10E9/L 02/07/2024 5:25 AM CDT [facility] RBC Count 3.63(L) 4.30 - 5.80 x10E12/L 02/07/2024 5:25 AM CDT [facility] Hemoglobin 10.5(L) 13.3 - 17.5 g/dL 02/07/2024 5:25 AM CDT [facility] Hematocrit 32.8(L) 38.7 - 51.1 % 02/07/2024 5:25 AM CDT [facility] MCV 90.4 80.0 - 98.0 fL 02/07/2024 5:25 AM CDT [facility] MCH 28.9 26.7 - 33.6 pg 02/07/2024 5:25 AM CDT [facility] MCHC 32.0 31.7 - 36.3 g/dL 02/07/2024 5:25 AM CDT [facility] RDW-CV 14.1 11.3 - 14.8 % 02/07/2024 5:25 AM CDT [facility] Platelet Count 363 150 - 420 x10E9/L 02/07/2024 5:25 AM CDT [facility] MPV 9.8 7.8 - 11.4 fL 02/07/2024 5:25 AM CDT [facility] Neutrophil % 72.7 41.0 - 74.0 % 02/07/2024 5:25 AM CDT [facility] Lymphocyte % 13.8(L) 17.0 - 47.0 % 02/07/2024 5:25 AM CDT [facility] Monocyte % 11.4(H) 3.0 - 11.0 % 02/07/2024 5:25 AM CDT [facility] Eosinophil % 1.2 0.0 - 7.0 % 02/07/2024 5:25 AM CDT [facility] Basophil % 0.2 0.0 - 1.6 % 02/07/2024 5:25 AM CDT [facility] Immature Granulocytes % 0.7 0.0 - 1.0 % 02/07/2024 5:25 AM CDT [facility] Neutrophil Absolute 12.61(H) 1.60 - 7.50 x10E9/L 02/07/2024 5:25 AM CDT [facility] Lymphocyte Absolute 2.40 1.00 - 4.40 x10E9/L 02/07/2024 5:25 AM CDT [facility] Monocyte Absolute 1.98(H) 0.15 - 1.00 x10E9/L 02/07/2024 5:25 AM CDT [facility] Eosinophil Absolute 0.20 0.00 - 0.60 x10E9/L 02/07/2024 5:25 AM CDT [facility] Basophil Absolute 0.04 0.00 - 0.13 x10E9/L 02/07/2024 5:25 AM CDT [facility] Blood BLOOD SPECIMEN / Unknown Line Draw / Unknown 02/07/2024 4:22 AM CDT 02/07/2024 4:27 AM CDT Iggy Cabrera MD LAB - HEMATOLOGY ORDERABLES [facility] [address] [place] [address] * MAGNESIUM BLOOD (02/07/2024 4:22 AM CDT) Magnesium 1.9 1.6 - 2.6 mg/dL 02/07/2024 4:59 AM CDT [facility] Blood BLOOD SPECIMEN / Unknown Line Draw / Unknown 02/07/2024 4:22 AM CDT 02/07/2024 4:27 AM CDT Travis Bhat [employer]UNDLE TIER LAB - CHEMISTRY ORDERABLES [facility] [address] [place] [address] * (ABNORMAL) BASIC METABOLIC PANEL (CALCIUM TOTAL) (02/07/2024 4:22 AM CDT) Glucose 241(H) 70 - 105 mg/dL 02/07/2024 4:59 AM CDT [facility] Sodium 135(L) 136 - 145 mmol/L 02/07/2024 4:59 AM CDT [facility] Potassium 4.1 3.5 - 5.1 mmol/L 02/07/2024 4:59 AM CDT [facility] Chloride 105 98 - 107 mmol/L 02/07/2024 4:59 AM CDT [facility] CO2 23 22 - 29 mmol/L 02/07/2024 4:59 AM CDT [facility] Calcium 9.1 8.4 - 10.4 mg/dL 02/07/2024 4:59 AM CDT [facility] Anion Gap 7 6 - 16 mmol/L 02/07/2024 4:59 AM CDT [facility] BUN 37(H) 7 - 26 mg/dL 02/07/2024 4:59 AM CDT [facility] Creatinine 0.96 0.72 - 1.25 mg/dL 02/07/2024 4:59 AM CDT [facility] eGFR by CKD-EPI 88(L) >=90 mL/min/1.7 3 m2 02/07/2024 4:59 AM CDT [facility] Blood BLOOD SPECIMEN / Unknown Line Draw / Unknown 02/07/2024 4:22 AM CDT 02/07/2024 4:27 AM CDT Chuy Siegel DO LAB - CHEMISTRY ORDE RABLES Performing Organization Address [facility] Co de Phone Number [facility] [id number] [place] [phone] * (ABNORMAL) GLUCOSE - POINT OF CARE (02/07/2024 12:36 AM CDT) Glucose WB/POC 239(H) 70 - 106 mg/dL 02/07/2024 12:41 AM CDT [facility] Specimen Type Cap Fingerstick 2023 12:41 AM CDT [facility] Blood BLOOD SPECIMEN / Unknown 02/07/2024 12:36 AM CDT 02/07/2024 12:41 AM CDT Sherie Beltre MD LAB - POINT OF CARE ORDERABLES Performing Organization Address [facility] Co de Phone Number [facility] [address] [place] [address] * MAGNESIUM BLOOD (02/07/2024 12:36 AM CDT) Magnesium 1.9 1.6 - 2.6 mg/dL 02/07/2024 1:01 AM CDT [facility] Blood BLOOD SPECIMEN / Unknown Line Draw / Unknown 02/07/2024 12:36 AM CDT 02/07/2024 12:42 AM CDT Travis Bhat APRN-BUNDLE TIER LAB - CHEMISTRY ORDERABLES Performing Organization Address [facility] Co de Phone Number [facility] [address] [place] [phone] * PHOSPHORUS BLOOD (02/07/2024 12:36 AM CDT) Phosphorus 3.5 2.3 - 4.7 mg/dL 02/07/2024 1:01 AM CDT [facility] Blood BLOOD SPECIMEN / Unknown Line Draw / Unknown 02/07/2024 12:36 AM CDT 02/07/2024 12:42 AM CDT Travis Bhat APRN-BUNDLE TIER LAB - CHEMISTRY ORDERABLES Performing Organization Address [facility] Co de Phone Number [facility] [address] [place] [address] * (ABNORMAL) GLUCOSE - POINT OF CARE (02/06/2024 9:42 PM CDT) Glucose WB/POC 234(H) 70 - 106 mg/dL 02/06/2024 9:47 PM CDT [facility] Specimen Type Cap Fingerstick 2023 9:47 PM CDT [facility] Blood BLOOD SPECIMEN / Unknown 02/06/2024 9:42 PM CDT 02/06/2024 9:47 PM CDT Sherie Beltre MD LAB - POINT OF CARE ORDERABLES Performing Organization Address [facility] Co de Phone Number [facility] [address] [place] [address] * (ABNORMAL) BASIC METABOLIC PANEL (CALCIUM TOTAL) (02/06/2024 5:45 PM CDT) Glucose 232(H) 70 - 105 mg/dL 02/06/2024 6:20 PM CDT [facility] Sodium 136 136 - 145 mmol/L 02/06/2024 6:20 PM CDT [facility] Potassium 4.4 3.5 - 5.1 mmol/L 02/06/2024 6:20 PM CDT [facility] Chloride 102 98 - 107 mmol/L 02/06/2024 6:20 PM CDT [facility] CO2 23 22 - 29 mmol/L 02/06/2024 6:20 PM CDT [facility] Calcium 9.7 8.4 - 10.4 mg/dL 02/06/2024 6:20 PM CDT [facility] Anion Gap 11 6 - 16 mmol/L 02/06/2024 6:20 PM CDT [facility] BUN 36(H) 7 - 26 mg/dL 02/06/2024 6:20 PM CDT [facility] Creatinine 1.10 0.72 - 1.25 mg/dL 02/06/2024 6:20 PM CDT [facility] eGFR by CKD-EPI 74(L) >=90 mL/min/1.7 3 m2 02/06/2024 6:20 PM CDT [facility] Blood BLOOD SPECIMEN / Unknown Clinic Draw / Unknown 02/06/2024 5:45 PM CDT 02/06/2024 5:58 PM CDT Chuy Siegel DO LAB - CHEMISTRY ORDAnirudh RAZO Performing Organization Address [facility]/ZIP Co de Phone Number [facility] [id number] [place], [place] [id number] * (ABNORMAL) URINE MICROSCOPIC ONLY (02/06/2024 11:40 AM CDT) RBC UA >100(A) 0 - 5 # /hpf 02/06/2024 1:30 PM CDT [facility] WBC UA 11-20(A) 0 - 5 # /hpf 02/06/2024 1:30 PM CDT [facility] Hyaline Casts None Seen 0 - 2 /LPF 02/06/2024 1:30 PM CDT [facility] Bacteria UA 2+(A) None Seen 02/06/2024 1:30 PM CDT [facility] Squamous Epithelial Cells 6-10(A) 0 - 5 /hpf 02/06/2024 1:30 PM CDT [facility] Urine URINE SPECIMEN OBTAINED VIA [facility] / Unknown Collection / Unknown 02/06/2024 11:40 AM CDT 02/06/2024 12:56 PM CDT Kel Jacome MD LAB - URINALYSIS ORD ERABLES Performing Organization Address [facility] Co de Phone Number [facility] [id number] [place] [address] * (ABNORMAL) URINALYSIS REFLEX TO MICROSCOPIC NO CULTURE (02/06/2024 11:40 AM CDT) Color UA Beckie(A) Straw, Yellow 02/06/2024 1:03 PM CDT [facility] Clarity UA Cloudy(A) Clear 02/06/2024 1:03 PM CDT [facility] Glucose UA Negative Negative 02/06/2024 1:03 PM CDT [facility] Bilirubin UA Negative Negative 02/06/2024 1:03 PM CDT [facility] Ketone UA Negative Negative 02/06/2024 1:03 PM CDT [facility] Specific Mcfaddin UA 1.025 1.005 - 1.030 02/06/2024 1:03 PM CDT [facility] Blood UA 3+(A) Negative 02/06/2024 1:03 PM CDT [facility] pH UA 5.0 5.0 - 8.0 pH 02/06/2024 1:03 PM CDT [facility] Protein UA 2+(A) Negative 02/06/2024 1:03 PM CDT [facility] Urobilinogen UA 2.0(A) Negative mg/dL 02/06/2024 1:03 PM CDT [facility] Nitrite UA Negative Negative 02/06/2024 1:03 PM CDT [facility] Leukocyte UA Trace(A) Negative 02/06/2024 1:03 PM CDT [facility] Urine Microscopy Urine microscopy to follow 02/06/2024 1:03 PM CDT [facility] Urine URINE SPECIMEN OBTAINED [facility] / Unknown Collection / Unknown 02/06/2024 11:40 AM CDT 02/06/2024 12:56 PM CDT Narrative [facility] - 02/06/2024 1:03 PM CDT Kel Jacome MD LAB - URINALYSIS ORD ERABLES [facility] [id number] [place] [address] * (ABNORMAL) GLUCOSE - POINT OF CARE (02/06/2024 11:37 AM CDT) Glucose WB/POC 173(H) 70 - 106 mg/dL 02/06/2024 9:01 PM CDT [facility] Specimen Type Cap Fingerstick 2023 9:01 PM CDT [facility] Blood BLOOD SPECIMEN / Unknown 02/06/2024 11:37 AM CDT 02/06/2024 9:01 PM CDT Sherie Beltre MD LAB - POINT OF CARE ORDERABLES [facility] [address] [place] [address] * MRSA DNA PCR (02/06/2024 11:33 AM CDT) MRSA DNA by PCR Not detected Not detected 02/07/2024 12:39 AM CDT [facility] MICROBIOLOGY Microbiology SPECIMEN FROM NASAL FOSSAE / Unknown Collection / Unknown 02/06/2024 11:33 AM CDT 02/06/2024 12:56 PM CDT Narrative [facility] MICROBIOLOGY - 02/07/2024 12:39 AM CDT Methicillin-resistant Staphylococcus aureus (MRSA) DNA is not detected (presumed not colonized with MRSA). Kel Jacome MD LAB - MICROBIOLOGY O RDERABLES Performing Organization Address City/[facility]/ZIP Co de Phone Number [facility] MICROBIOLOGY [address] [place], [place] [address] [phone] * (ABNORMAL) CULTURE SPUTUM+GRAM STAIN (02/06/2024 11:33 AM CDT) Culture Moderate Staphylococcus aureus(A) VALERIA 02/08/2024 10:43 PM CDT [facility] MICROBIOLOGY Comment:Staphylococcus aureu s methicillin-susceptible (MSSA) detected by penicillin binding protein immunoassay. Culture Rare normal oropharyngeal tae VALERIA 02/08/2024 10:43 PM CDT [facility] MICROBIOLOGY Gram Stain <10 per low power field Squamous epithelial cells 02/08/2024 10:43 PM CDT [facility] MICROBIOLOGY Gram Stain >= 25 per low power field Polymorphonuclear cells 02/08/2024 10:43 PM CDT [facility] MICROBIOLOGY Gram Stain Moderate Gram-positive cocci 02/08/2024 10:43 PM CDT [facility] MICROBIOLOGY Microbiology LOWER RESPIRATORY FLUID SPECIMEN / [...] - MICROBIOLOGY O АННА Performing Organization Address [facility] de Phone Number [facility] MICROBIOLOGY [address] [place] [address], [facility] [phone] * CULTURE BLOOD (02/06/2024 11:31 AM CDT) Culture No growth day 5 VALERIA 02/11/2024 1:01 PM CDT [facility] MICROBIOLOGY Blood PERIPHERAL BLOOD / Unknown Venipuncture / Unknown 02/06/2024 11:31 AM CDT 02/06/2024 11:39 AM CDT Kel Jacome MD LAB - MICROBIOLOGY O АННА Performing Organization Address [facility] de Phone Number [facility] MICROBIOLOGY [address] [place] [address], [facility] [phone] * CULTURE BLOOD (02/06/2024 11:13 AM CDT) Culture No growth day 5 VALERIA 02/11/2024 1:01 PM CDT [facility] MICROBIOLOGY Blood PERIPHERAL BLOOD / Unknown Venipuncture / Unknown 02/06/2024 11:13 AM CDT 02/06/2024 11:21 AM CDT Kel Jacome MD LAB - MICROBIOLOGY O АННА Performing Organization Address [facility] Co de Phone Number [facility]CROBIOLOGY [address] [place] [address], [facility] [phone] * MAGNESIUM BLOOD (02/06/2024 11:13 AM CDT) Magnesium 1.9 1.6 - 2.6 mg/dL 02/06/2024 11:41 AM CDT [facility] Blood BLOOD SPECIMEN / Unknown Venipuncture / Unknown 02/06/2024 11:13 AM CDT 02/06/2024 11:21 AM CDT Travis Bhat [employer]-[facility] LAB - CHEMISTRY ORDERABLES Performing Organization Address [facility] Co de Phone Number [facility] [address] [place] [address] * PHOSPHORUS BLOOD (02/06/2024 11:13 AM CDT) Phosphorus 3.7 2.3 - 4.7 mg/dL 02/06/2024 11:41 AM CDT [facility] Blood BLOOD SPECIMEN / Unknown Venipuncture / Unknown 02/06/2024 11:13 AM CDT 02/06/2024 11:21 AM CDT Travis Bhat [employer]-[facility] LAB - CHEMISTRY ORDERABLES Performing Organization Address [facility] Co de Phone Number [facility] [address] [place], [place] [id number] * (ABNORMAL) GLUCOSE - POINT OF CARE (02/06/2024 6:31 AM CDT) Glucose WB/POC 208(H) 70 - 106 mg/dL 02/06/2024 6:36 AM CDT [facility] Specimen Type Cap Fingerstick 2023 6:36 AM CDT [facility] Blood BLOOD SPECIMEN / Unknown 02/06/2024 6:31 AM CDT 02/06/2024 6:36 AM CDT Sherie Beltre MD LAB - POINT OF CARE ORDERABLES [facility] [address] [place] [address] * SLIDE SCAN HEMATOLOGY (02/06/2024 4:20 AM CDT) Pathologist [facility] [place] RBC Morphology NORMAL 02/06/2024 5:17 AM CDT [facility] Platelet Morphology NORMAL 02/06/2024 5:17 AM CDT [facility] Blood BLOOD SPECIMEN / Unknown Line Draw / Unknown 02/06/2024 4:20 AM CDT 02/06/2024 4:31 AM CDT Iggy Cabrera MD LAB - HEMATOLOGY ORDERABLES Performing Organization Address [facility] Co de Phone Number [facility] [address] [place] [address] * (ABNORMAL) CBC W AUTO DIFFERENTIAL (02/06/2024 4:20 AM CDT) Pathologist [facility] WBC 14.4(H) 4.0 - 10.7 x10E9/L 02/06/2024 5:17 AM CDT [facility] RBC Count 3.72(L) 4.30 - 5.80 x10E12/L 02/06/2024 5:17 AM CDT [facility] Hemoglobin 11.1(L) 13.3 - 17.5 g/dL 02/06/2024 5:17 AM CDT [facility] Hematocrit 33.7(L) 38.7 - 51.1 % 02/06/2024 5:17 AM CDT [facility] MCV 90.6 80.0 - 98.0 fL 02/06/2024 5:17 AM CDT [facility] MCH 29.8 26.7 - 33.6 pg 02/06/2024 5:17 AM CDT [facility] MCHC 32.9 31.7 - 36.3 g/dL 02/06/2024 5:17 AM CDT [facility] RDW-CV 14.2 11.3 - 14.8 % 02/06/2024 5:17 AM CDT [facility] Platelet Count 355 150 - 420 x10E9/L 02/06/2024 5:17 AM CDT [facility] MPV 9.8 7.8 - 11.4 fL 02/06/2024 5:17 AM CDT [facility] Neutrophil % 69.1 41.0 - 74.0 % 02/06/2024 5:17 AM CDT [facility] Lymphocyte % 17.9 17.0 - 47.0 % 02/06/2024 5:17 AM CDT [facility] Monocyte % 10.9 3.0 - 11.0 % 02/06/2024 5:17 AM CDT [facility] Eosinophil % 1.1 0.0 - 7.0 % 02/06/2024 5:17 AM CDT [facility] Basophil % 0.3 0.0 - 1.6 % 02/06/2024 5:17 AM CDT [facility] Immature Granulocytes % 0.7 0.0 - 1.0 % 02/06/2024 5:17 AM CDT [facility] Neutrophil Absolute 9.99(H) 1.60 - 7.50 x10E9/L 02/06/2024 5:17 AM CDT [facility] Lymphocyte Absolute 2.58 1.00 - 4.40 x10E9/L 02/06/2024 5:17 AM CDT [facility] Monocyte Absolute 1.57(H) 0.15 - 1.00 x10E9/L 02/06/2024 5:17 AM CDT [facility] Eosinophil Absolute 0.16 0.00 - 0.60 x10E9/L 02/06/2024 5:17 AM CDT [facility] Basophil Absolute 0.04 0.00 - 0.13 x10E9/L 02/06/2024 5:17 AM CDT [facility] Blood BLOOD SPECIMEN / Unknown Line Draw / Unknown 02/06/2024 4:20 AM CDT 02/06/2024 4:31 AM CDT Iggy Cabrera MD LAB - HEMATOLOGY ORDERABLES [facility] [address] [place] [address] * (ABNORMAL) BASIC METABOLIC PANEL (CALCIUM TOTAL) (02/06/2024 4:20 AM CDT) Glucose 194(H) 70 - 105 mg/dL 02/06/2024 4:52 AM CDT [facility] Sodium 137 136 - 145 mmol/L 02/06/2024 4:52 AM CDT [facility] Potassium 4.8 3.5 - 5.1 mmol/L 02/06/2024 4:52 AM CDT [facility] Chloride 102 98 - 107 mmol/L 02/06/2024 4:52 AM CDT [facility] CO2 26 22 - 29 mmol/L 02/06/2024 4:52 AM CDT [facility] Calcium 9.5 8.4 - 10.4 mg/dL 02/06/2024 4:52 AM CDT [facility] Anion Gap 9 6 - 16 mmol/L 02/06/2024 4:52 AM CDT [facility] BUN 34(H) 7 - 26 mg/dL 02/06/2024 4:52 AM CDT [facility] Creatinine 1.21 0.72 - 1.25 mg/dL 02/06/2024 4:52 AM CDT [facility] eGFR by CKD-EPI 66(L) >=90 mL/min/1.7 3 m2 02/06/2024 4:52 AM CDT [facility] Blood BLOOD SPECIMEN / Unknown Line Draw / Unknown 02/06/2024 4:20 AM CDT 02/06/2024 4:31 AM CDT Chuy Siegel DO LAB - CHEMISTRY CHRISTIAN RAZO Performing Organization Address City/State/[facility] Co de Phone Number [facility] [address] [place] [address] * MAGNESIUM BLOOD (02/06/2024 12:00 AM CDT) Magnesium 2.0 1.6 - 2.6 mg/dL 02/06/2024 12:25 AM CDT [facility] Blood BLOOD SPECIMEN / Unknown Line Draw / Unknown 02/06/2024 12:00 AM CDT 02/06/2024 12:09 AM CDT Travis Bhat [employer] LAB - CHEMISTRY ORDERABLES Performing Organization Address [facility] Co de Phone Number [facility] [id number] [place] [phone] * PHOSPHORUS BLOOD (02/06/2024 12:00 AM CDT) Phosphorus 3.7 2.3 - 4.7 mg/dL 02/06/2024 12:25 AM CDT [facility] Blood BLOOD SPECIMEN / Unknown Line Draw / Unknown 02/06/2024 12:00 AM CDT 02/06/2024 12:09 AM CDT Travis Bhat [employer] LAB - CHEMISTRY ORDERABLES Performing Organization Address [facility] Co de Phone Number [facility] [address] [place] [phone] * (ABNORMAL) GLUCOSE - POINT OF CARE (02/05/2024 11:59 PM CDT) Glucose WB/POC 227(H) 70 - 106 mg/dL 02/06/2024 12:04 AM CDT [facility] Specimen Type Venous 02/06/2024 12:04 AM CDT [facility] Blood BLOOD SPECIMEN / Unknown 02/05/2024 11:59 PM CDT 02/06/2024 12:04 AM CDT Sherie Beltre MD LAB - POINT OF CARE ORDERABLES Performing Organization Address [facility] Co de Phone Number [facility] [address] [place] [address] * (ABNORMAL) GLUCOSE - POINT OF CARE (02/05/2024 10:23 PM CDT) Glucose WB/POC 226(H) 70 - 106 mg/dL 02/05/2024 10:28 PM CDT [facility] Specimen Type Cap Fingerstick 2023 10:28 PM CDT [facility] Blood BLOOD SPECIMEN / Unknown 02/05/2024 10:23 PM CDT 02/05/2024 10:27 PM CDT Sherie Beltre MD LAB - POINT OF CARE ORDERABLES Performing Organization Address City/[facility]/ZIP Co de Phone Number [facility] [address] [place], [place] [phone] * (ABNORMAL) GLUCOSE - POINT OF CARE (02/05/2024 5:58 PM CDT) Glucose WB/POC 204(H) 70 - 106 mg/dL 02/05/2024 6:02 PM CDT [facility] Specimen Type Cap Fingerstick 2023 6:02 PM CDT [facility] Blood BLOOD SPECIMEN / Unknown 02/05/2024 5:58 PM CDT 02/05/2024 6:02 PM CDT Sherie Beltre MD LAB - POINT OF CARE ORDERABLES Performing Organization Address [facility] Co de Phone Number [facility] [address] [place] [phone] * (ABNORMAL) BASIC METABOLIC PANEL (CALCIUM TOTAL) (02/05/2024 5:32 PM CDT) Glucose 197(H) 70 - 105 mg/dL 02/05/2024 6:05 PM CDT [facility] Sodium 137 136 - 145 mmol/L 02/05/2024 6:05 PM CDT [facility] Potassium 5.0 3.5 - 5.1 mmol/L 02/05/2024 6:05 PM CDT [facility] Chloride 101 98 - 107 mmol/L 02/05/2024 6:05 PM CDT [facility] CO2 22 22 - 29 mmol/L 02/05/2024 6:05 PM CDT [facility] Calcium 9.4 8.4 - 10.4 mg/dL 02/05/2024 6:05 PM CDT [facility] Anion Gap 14 6 - 16 mmol/L 02/05/2024 6:05 PM CDT [facility] BUN 35(H) 7 - 26 mg/dL 02/05/2024 6:05 PM CDT [facility] Creatinine 1.27(H) 0.72 - 1.25 mg/dL 02/05/2024 6:05 PM CDT [facility] eGFR by CKD-EPI 63(L) >=90 mL/min/1.7 3 m2 02/05/2024 6:05 PM CDT [facility] Blood BLOOD SPECIMEN / Unknown Venipuncture / Unknown 02/05/2024 5:32 PM CDT 02/05/2024 5:46 PM CDT Chuy Siegel DO LAB - CHEMISTRY CHRISTIAN RAZO Performing Organization Address City/[facility] Co de Phone Number [facility] [address] [place] [address] * (ABNORMAL) GLUCOSE - POINT OF CARE (02/05/2024 2:37 PM CDT) [facility] Glucose WB/POC 195(H) 70 - 106 mg/dL 02/06/2024 12:10 AM CDT [facility] Specimen Type Cap Fingerstick 2023 12:10 AM CDT [facility] Blood BLOOD SPECIMEN / Unknown 02/05/2024 2:37 PM CDT 02/06/2024 12:10 AM CDT Sherie Beltre MD LAB - POINT OF CARE ORDERABLES Performing Organization Address [facility] Co de Phone Number [facility] [address] [place] [address] * MAGNESIUM BLOOD (02/05/2024 11:05 AM CDT) [facility] Magnesium 2.2 1.6 - 2.6 mg/dL 02/05/2024 11:23 AM CDT [facility] Blood BLOOD SPECIMEN / Unknown Venipuncture / Unknown 02/05/2024 11:05 AM CDT 02/05/2024 11:08 AM CDT Travis Bhat APRN-BUNDLE TIER LAB - CHEMISTRY ORDERABLES Performing Organization Address City/[facility]/ZIP Co de Phone Number [facility] [address] [place] [address] * (ABNORMAL) PHOSPHORUS BLOOD (02/05/2024 11:05 AM CDT) Phosphorus 5.9(H) 2.3 - 4.7 mg/dL 02/05/2024 11:23 AM CDT [facility] Blood BLOOD SPECIMEN / Unknown Venipuncture / Unknown 02/05/2024 11:05 AM CDT 02/05/2024 11:08 AM CDT Travis Bhat [employer] LAB - CHEMISTRY ORDERABLES [facility] [address] [place] [address] * (ABNORMAL) GLUCOSE - POINT OF CARE (02/05/2024 10:54 AM CDT) Glucose WB/POC 184(H) 70 - 106 mg/dL 02/05/2024 12:09 PM CDT [facility] Specimen Type Cap Fingerstick 2023 12:09 PM CDT [facility] Blood BLOOD SPECIMEN / Unknown 02/05/2024 10:54 AM CDT 02/05/2024 12:09 PM CDT Sherie Beltre MD LAB - POINT OF CARE ORDERABLES Performing Organization Address City/[facility] Co de Phone Number [facility] [address] [place] [address] * XR CHEST 1VW PORTABLE (02/05/2024 9:00 [...] DATE/TIME OF EXAM: ??02/05/2024 9:04 AM, LOCATION ??[facility] INDICATION: 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) ADDITIONAL [...] PORTABLE, DATE/TIME OF EXAM: 02/05/2024 9:04AM, LOCATION [facility] INDICATION: 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) ADDITIONAL [...] Type Cap Fingerstick 2023 6:14 AM CDT [facility] Blood BLOOD SPECIMEN / Unknown 02/05/2024 5:56 AM CDT 02/05/2024 6:14 AM CDT Sherie Beltre MD LAB - POINT OF CARE ORDERABLES Performing Organization Address City/[facility]/ZIP Co de Phone Number [facility] [address] [place] [address] * (ABNORMAL) BASIC METABOLIC PANEL (CALCIUM TOTAL) (02/05/2024 3:31 AM CDT) [facility] Glucose 171(H) 70 - 105 mg/dL 02/05/2024 4:24 AM CDT [facility] Sodium 136 136 - 145 mmol/L 02/05/2024 4:24 AM CDT [facility] Potassium 4.5 3.5 - 5.1 mmol/L 02/05/2024 4:24 AM CDT [facility] Chloride 102 98 - 107 mmol/L 02/05/2024 4:24 AM CDT [facility] CO2 26 22 - 29 mmol/L 02/05/2024 4:24 AM CDT [facility] Calcium 9.4 8.4 - 10.4 mg/dL 02/05/2024 4:24 AM CDT [facility] Anion Gap 8 6 - 16 mmol/L 02/05/2024 4:24 AM CDT [facility] BUN 36(H) 7 - 26 mg/dL 02/05/2024 4:24 AM CDT [facility] Creatinine 1.32(H) 0.72 - 1.25 mg/dL 02/05/2024 4:24 AM CDT [facility] eGFR by CKD-EPI 60(L) >=90 mL/min/1.7 3 m2 02/05/2024 4:24 AM CDT [facility] Blood BLOOD SPECIMEN / Unknown Line Draw / Unknown 02/05/2024 3:31 AM CDT 02/05/2024 3:49 AM CDT Chuy Siegel DO LAB - CHEMISTRY CHRISTIAN RAZO Performing Organization Address [facility]/ZIP Co de Phone Number [facility] [address] [place] [address] * (ABNORMAL) CBC W AUTO DIFFERENTIAL (02/05/2024 3:31 AM CDT) [facility] WBC 14.4(H) 4.0 - 10.7 x10E9/L 02/05/2024 [...] - 36.3 g/dL 02/05/2024 3:57 AM CDT [facility] RDW-CV 14.1 11.3 - 14.8 % [...] - 7.50 x10E9/L 02/05/2024 3:57 AM CDT [facility] Lymphocyte Absolute 2.50 1.00 - 4.40 x10E9/L 02/05/2024 3:57 AM CDT [facility] Monocyte Absolute 1.32(H) 0.15 - 1.00 x10E9/L 02/05/2024 3:57 AM CDT [facility] Eosinophil Absolute 0.27 0.00 - 0.60 x10E9/L 02/05/2024 3:57 AM CDT [facility] Basophil Absolute 0.03 0.00 - 0.13 x10E9/L 02/05/2024 3:57 AM CDT [facility] Blood BLOOD SPECIMEN / Unknown Line Draw / Unknown 02/05/2024 3:31 AM CDT 02/05/2024 3:49 AM CDT Chuy Siegel DO LAB - HEMATOLOGY ORD ERABLES Performing Organization Address City/[facility]/ZIP Co de Phone Number [facility] [address] [place] [address] * MAGNESIUM BLOOD (02/04/2024 11:36 PM CDT) Magnesium 2.1 1.6 - 2.6 mg/dL 02/05/2024 12:02 AM CDT [facility] Blood BLOOD SPECIMEN / Unknown Line Draw / Unknown 02/04/2024 11:36 PM CDT 02/04/2024 11:38 PM CDT Travis Bhat [employer] LAB - CHEMISTRY ORDERABLES Performing Organization Address City/[facility]/ZIP Co de Phone Number [facility] [address] [place] [address] * (ABNORMAL) PHOSPHORUS BLOOD (02/04/2024 11:36 PM CDT) Phosphorus 4.8(H) 2.3 - 4.7 mg/dL 02/05/2024 12:02 AM CDT [facility] Blood BLOOD SPECIMEN / Unknown Line Draw / Unknown 02/04/2024 11:36 PM CDT 02/04/2024 11:38 PM CDT Travis TAPIA LAB - CHEMISTRY ORDERABLES Performing Organization Address [facility] Co de Phone Number [facility] [address] [place] [address] * (ABNORMAL) GLUCOSE - POINT OF CARE (02/04/2024 11:34 PM CDT) [facility] Glucose WB/POC 182(H) 70 - 106 mg/dL 02/05/2024 12:04 AM CDT [facility] Specimen Type Venous 02/05/2024 12:04 AM CDT [facility] Blood BLOOD SPECIMEN / Unknown 02/04/2024 11:34 PM CDT 02/05/2024 12:04 AM CDT Sherie Beltre MD LAB - POINT OF CARE ORDERABLES Performing Organization Address [facility] Co de Phone Number [facility] [address] [place] [address] * (ABNORMAL) BASIC METABOLIC PANEL (CALCIUM TOTAL) (02/04/2024 4:32 PM CDT) [facility] Glucose 178(H) 70 - 105 mg/dL 02/04/2024 5:22 PM CDT [facility] Sodium 134(L) 136 - 145 mmol/L 02/04/2024 5:22 PM CDT [facility] Potassium 4.7 3.5 - 5.1 mmol/L 02/04/2024 5:22 PM CDT [facility] Chloride 101 98 - 107 mmol/L 02/04/2024 5:22 PM CDT [facility] CO2 25 22 - 29 mmol/L 02/04/2024 5:22 PM CDT [facility] Calcium 9.3 8.4 - 10.4 mg/dL 02/04/2024 5:22 PM CDT [facility] Anion Gap 8 6 - 16 mmol/L 02/04/2024 5:22 PM CDT [facility] BUN 33(H) 7 - 26 mg/dL 02/04/2024 5:22 PM CDT [facility] Creatinine 1.32(H) 0.72 - 1.25 mg/dL 02/04/2024 5:22 PM CDT [facility] eGFR by CKD-EPI 60(L) >=90 mL/min/1.7 3 m2 02/04/2024 5:22 PM CDT [facility] Blood BLOOD SPECIMEN / Unknown Venipuncture / Unknown 02/04/2024 4:32 PM CDT 02/04/2024 5:00 PM CDT Chuy Siegel DO LAB - CHEMISTRY ORDE DUNG Performing Organization Address City/[facility]/ZIP Co de Phone Number [facility] [address] [place], [place] [id number] * (ABNORMAL) GLUCOSE - POINT OF CARE (02/04/2024 4:31 PM CDT) Glucose WB/POC 189(H) 70 - 106 mg/dL 02/04/2024 4:36 PM CDT [facility] Specimen Type Cap Fingerstick 2023 4:36 PM CDT [facility] Blood BLOOD SPECIMEN / Unknown 02/04/2024 4:31 PM CDT 02/04/2024 4:36 PM CDT Sherie Beltre MD LAB - POINT OF CARE ORDERABLES Performing Organization Address [facility]/ZIP Co de Phone Number [facility] [address] [place] [address] * MAGNESIUM BLOOD (02/04/2024 11:40 AM CDT) Magnesium 2.1 1.6 - 2.6 mg/dL 02/04/2024 12:05 PM CDT [facility] Blood BLOOD SPECIMEN / Unknown Venipuncture / Unknown 02/04/2024 11:40 AM CDT 02/04/2024 11:48 AM CDT Travis Bhat [employer] LAB - CHEMISTRY ORDERABLES [facility] [address] [place] [id number] * (ABNORMAL) PHOSPHORUS BLOOD (02/04/2024 11:40 AM CDT) Phosphorus 5.1(H) 2.3 - 4.7 mg/dL 02/04/2024 12:05 PM CDT [facility] Blood BLOOD SPECIMEN / Unknown Venipuncture / Unknown 02/04/2024 11:40 AM CDT 02/04/2024 11:48 AM CDT Travis Bhat [employer] LAB - CHEMISTRY ORDERABLES Performing Organization Address City/[facility] Co de Phone Number [facility] [address] [place] [id number] * (ABNORMAL) GLUCOSE - POINT OF CARE (02/04/2024 11:32 AM CDT) Glucose WB/POC 197(H) 70 - 106 mg/dL 02/04/2024 2:09 PM CDT [facility] Specimen Type Cap Fingerstick 2023 2:09 PM CDT [facility] Blood BLOOD SPECIMEN / Unknown 02/04/2024 11:32 AM CDT 02/04/2024 2:09 PM CDT Sherie Beltre MD LAB - POINT OF CARE ORDERABLES Performing Organization Address City/[facility]/ZIP Co de Phone Number [facility] [address] [place] [phone] * (ABNORMAL) GLUCOSE - POINT OF CARE (02/04/2024 6:04 AM CDT) Glucose WB/POC 215(H) 70 - 106 mg/dL 02/04/2024 6:09 AM CDT [facility] Specimen Type Cap Fingerstick 2023 6:09 AM CDT [facility] Blood BLOOD SPECIMEN / Unknown 02/04/2024 6:04 AM CDT 02/04/2024 6:09 AM CDT Yessenia Kerr MD LAB - POINT OF CARE ORDERABLES [facility] [address] [place] [address] * (ABNORMAL) CBC W AUTO DIFFERENTIAL (02/04/2024 3:28 AM CDT) WBC 16.4(H) 4.0 - 10.7 x10E9/L 02/04/2024 3:53 AM CDT [facility] RBC Count 3.94(L) 4.30 - 5.80 x10E12/L 02/04/2024 3:53 AM CDT [facility] Hemoglobin 11.5(L) 13.3 - 17.5 g/dL 02/04/2024 3:53 AM CDT [facility] Hematocrit 35.6(L) 38.7 - 51.1 % 02/04/2024 3:53 AM CDT [facility] MCV 90.4 80.0 - 98.0 fL 02/04/2024 3:53 AM CDT [facility] MCH 29.2 26.7 - 33.6 pg 02/04/2024 3:53 AM CDT [facility] MCHC 32.3 31.7 - 36.3 g/dL 02/04/2024 3:53 AM CDT [facility] RDW-CV 13.8 11.3 - 14.8 % 02/04/2024 3:53 AM CDT [facility] Platelet Count 326 150 - 420 x10E9/L 02/04/2024 3:53 AM CDT [facility] MPV 9.5 7.8 - 11.4 fL 02/04/2024 3:53 AM CDT [facility] Neutrophil % 66.7 41.0 - 74.0 % 02/04/2024 3:53 AM CDT [facility] Lymphocyte % 21.6 17.0 - 47.0 % 02/04/2024 3:53 AM CDT [facility] Monocyte % 8.6 3.0 - 11.0 % 02/04/2024 3:53 AM CDT [facility] Eosinophil % 2.1 0.0 - 7.0 % 02/04/2024 3:53 AM CDT [facility] Basophil % 0.2 0.0 - 1.6 % 02/04/2024 3:53 AM CDT [facility] Immature Granulocytes % 0.8 0.0 - 1.0 % 02/04/2024 3:53 AM CDT [facility] Neutrophil Absolute 10.95(H) 1.60 - 7.50 x10E9/L 02/04/2024 3:53 AM CDT [facility] Lymphocyte Absolute 3.54 1.00 - 4.40 x10E9/L 02/04/2024 3:53 AM CDT [facility] Monocyte Absolute 1.42(H) 0.15 - 1.00 x10E9/L 02/04/2024 3:53 AM CDT [facility] Eosinophil Absolute 0.34 0.00 - 0.60 x10E9/L 02/04/2024 3:53 AM CDT [facility] Basophil Absolute 0.04 0.00 - 0.13 x10E9/L 02/04/2024 3:53 AM CDT [facility] Blood BLOOD SPECIMEN / Unknown Line Draw / Unknown 02/04/2024 3:28 AM CDT 02/04/2024 3:48 AM CDT Chuy Siegel DO LAB - HEMATOLOGY ORD ERABLES Performing Organization Address City/[facility]/ZIP Co de Phone Number [facility] [address] [place] [address] * (ABNORMAL) TRIGLYCERIDES BLOOD (02/04/2024 3:28 AM CDT) Triglycerides 190(H) <150 mg/dL 02/04/2024 4:07 AM CDT [facility] Blood BLOOD SPECIMEN / Unknown Line Draw / Unknown 02/04/2024 3:28 AM CDT 02/04/2024 3:48 AM CDT Kel Jacome MD LAB - CHEMISTRY ORDE DUNG Performing Organization Address City/[facility]/ZIP Co de Phone Number [facility] [address] [place] [address] * MAGNESIUM BLOOD (02/03/2024 11:34 PM CDT) Magnesium 2.1 1.6 - 2.6 mg/dL 02/04/2024 12:12 AM CDT [facility] Blood BLOOD SPECIMEN / Unknown Venipuncture / Unknown 02/03/2024 11:34 PM CDT 02/03/2024 11:54 PM CDT Travis [facility]hat [facility] LAB - CHEMISTRY ORDERABLES Performing Organization Address [facility] Co de Phone Number [facility] [id number] [place] [address] [phone] * (ABNORMAL) PHOSPHORUS BLOOD (02/03/2024 11:34 PM CDT) Phosphorus 5.4(H) 2.3 - 4.7 mg/dL 02/04/2024 12:10 AM CDT [facility] Blood BLOOD SPECIMEN / Unknown Venipuncture / Unknown 02/03/2024 11:34 PM CDT 02/03/2024 11:54 PM CDT Travis Bhat [facility] LAB - CHEMISTRY ORDERABLES Performing Organization Address [facility] de Phone Number [facility] [address] [place] [phone] * (ABNORMAL) BASIC METABOLIC PANEL (CALCIUM TOTAL) (02/03/2024 11:34 PM CDT) Glucose 220(H) 70 - 105 mg/dL 02/04/2024 12:12 AM CDT [facility] Sodium 135(L) 136 - 145 mmol/L 02/04/2024 12:12 AM CDT [facility] Potassium 4.4 3.5 - 5.1 mmol/L 02/04/2024 12:12 AM CDT [facility] Chloride 100 98 - 107 mmol/L 02/04/2024 12:12 AM CDT [facility] CO2 27 22 - 29 mmol/L 02/04/2024 12:12 AM CDT [facility] Calcium 9.3 8.4 - 10.4 mg/dL 02/04/2024 12:12 AM CDT [facility] Anion Gap 8 6 - 16 mmol/L 02/04/2024 12:12 AM CDT [facility] BUN 40(H) 7 - 26 mg/dL 02/04/2024 12:12 AM CDT [facility] Creatinine 1.43(H) 0.72 - 1.25 mg/dL 02/04/2024 12:12 AM CDT [facility] eGFR by CKD-EPI 54(L) >=90 mL/min/1.7 3 m2 02/04/2024 12:12 AM CDT [facility] Blood BLOOD SPECIMEN / Unknown Venipuncture / Unknown 02/03/2024 11:34 PM CDT 02/03/2024 11:54 PM CDT Travis Bhat APRN-BUNDLE TIER LAB - CHEMISTRY ORDERABLES Performing Organization Address City/[facility]/ZIP Co de Phone Number [facility] [address] [place] [address] * (ABNORMAL) GLUCOSE - POINT OF CARE (02/03/2024 11:32 PM CDT) Glucose WB/POC 181(H) 70 - 106 mg/dL 02/04/2024 12:37 AM CDT [facility] Specimen Type Cap Fingerstick 2023 12:37 AM CDT [facility] Blood BLOOD SPECIMEN / Unknown 02/03/2024 11:32 PM CDT 02/04/2024 12:37 AM CDT Yessenia Kerr MD LAB - POINT OF CARE ORDERABLES [facility] [address] [place], [place] [phone] * (ABNORMAL) GLUCOSE - POINT OF CARE (02/03/2024 5:28 PM CDT) Glucose WB/POC 202(H) 70 - 106 mg/dL 02/03/2024 6:23 PM CDT [facility] Specimen Type Cap Fingerstick 2023 6:23 PM CDT [facility] Blood BLOOD SPECIMEN / Unknown 02/03/2024 5:28 PM CDT 02/03/2024 6:23 PM CDT Yessenia Kerr MD LAB - POINT OF CARE ORDERABLES Performing Organization Address [facility] Co de Phone Number [facility] [address] [place] [address] * (ABNORMAL) GLUCOSE - POINT OF CARE (02/03/2024 11:53 AM CDT) Glucose WB/POC 233(H) 70 - 106 mg/dL 02/03/2024 1:18 PM CDT [facility] Specimen Type Cap Fingerstick 2023 1:18 PM CDT [facility] Blood BLOOD SPECIMEN / Unknown 02/03/2024 11:53 AM CDT 02/03/2024 1:18 PM CDT Yessenia Kerr MD LAB - POINT OF CARE ORDERABLES Performing Organization Address [facility] Co de Phone Number [facility] [address] [place] [address] * (ABNORMAL) DIFFERENTIAL MANUAL (02/03/2024 10:01 AM CDT) Neutrophil % 56 41 - 74 % 02/03/2024 10:56 AM CDT [facility] Lymphocyte % 28 17 - 47 % 02/03/2024 10:56 AM CDT [facility] Monocyte % 13(H) 3 - 11 % 02/03/2024 10:56 AM CDT [facility] Eosinophil % 3 0 - 7 % 02/03/2024 10:56 AM CDT [facility] Neutrophil Absolute 8.51(H) 1.60 - 7.50 x10E9/L 02/03/2024 10:56 AM CDT [facility] Lymphocyte Absolute 4.26 1.00 - 4.40 x10E9/L 02/03/2024 10:56 AM CDT [facility] Monocyte Absolute 1.98(H) 0.15 - 1.00 x10E9/L 02/03/2024 10:56 AM CDT [facility] Eosinophil Absolute 0.46 0.00 - 0.60 x10E9/L 02/03/2024 10:56 AM CDT [facility] RBC Morphology RED CELL INDICIES CONFIRMED 02/03/2024 10:56 AM CDT [facility] Blood BLOOD SPECIMEN / Unknown Venipuncture / Unknown 02/03/2024 10:01 AM CDT 02/03/2024 10:19 AM CDT Chuy Siegel DO LAB - HEMATOLOGY ORD ERABLES [facility] [address] [place] [address] * (ABNORMAL) CBC W AUTO DIFFERENTIAL (02/03/2024 10:01 AM CDT) WBC 15.2(H) 4.0 - 10.7 x10E9/L 02/03/2024 10:56 AM CDT [facility] RBC Count 3.98(L) 4.30 - 5.80 x10E12/L 02/03/2024 10:56 AM CDT [facility] Hemoglobin 11.7(L) 13.3 - 17.5 g/dL 02/03/2024 10:56 AM CDT [facility] Hematocrit 36.1(L) 38.7 - 51.1 % 02/03/2024 10:56 AM CDT [facility] MCV 90.7 80.0 - 98.0 fL 02/03/2024 10:56 AM CDT [facility] MCH 29.4 26.7 - 33.6 pg 02/03/2024 10:56 AM CDT [facility] MCHC 32.4 31.7 - 36.3 g/dL 02/03/2024 10:56 AM CDT [facility] RDW-CV 13.8 11.3 - 14.8 % 02/03/2024 10:56 AM CDT [facility] Platelet Count 325 150 - 420 x10E9/L 02/03/2024 10:56 AM CDT [facility] MPV 10.0 7.8 - 11.4 fL 02/03/2024 10:56 AM CDT [facility] Blood BLOOD SPECIMEN / Unknown Venipuncture / Unknown 02/03/2024 10:01 AM CDT 02/03/2024 10:19 AM CDT Chuy Siegel DO LAB - HEMATOLOGY ORD ERABLES Performing Organization Address [facility] Co de Phone Number [facility] [id number] [place] [address] * MAGNESIUM BLOOD (02/03/2024 10:01 AM CDT) Magnesium 2.3 1.6 - 2.6 mg/dL 02/03/2024 10:49 AM CDT [facility] Blood BLOOD SPECIMEN / Unknown Venipuncture / Unknown 02/03/2024 10:01 AM CDT 02/03/2024 10:19 AM CDT Travis Bhat [employer] LAB - CHEMISTRY ORDERABLES Performing Organization Address [facility] de Phone Number [facility] [address] [place] [address] * PHOSPHORUS BLOOD (02/03/2024 10:01 AM CDT) Phosphorus 4.6 2.3 - 4.7 mg/dL 02/03/2024 10:49 AM CDT [facility] Blood BLOOD SPECIMEN / Unknown Venipuncture / Unknown 02/03/2024 10:01 AM CDT 02/03/2024 10:19 AM CDT Travis Bhat [employer] LAB - CHEMISTRY ORDERABLES Performing Organization Address [facility] de Phone Number [facility] [address] [place] [phone] * (ABNORMAL) BASIC METABOLIC PANEL (CALCIUM TOTAL) (02/03/2024 10:01 AM CDT) Glucose 228(H) 70 - 105 mg/dL 02/03/2024 10:49 AM CDT [facility] Sodium 136 136 - 145 mmol/L 02/03/2024 10:49 AM CDT [facility] Potassium 4.4 3.5 - 5.1 mmol/L 02/03/2024 10:49 AM CDT [facility] Chloride 100 98 - 107 mmol/L 02/03/2024 10:49 AM CDT [facility] CO2 25 22 - 29 mmol/L 02/03/2024 10:49 AM CDT [facility] Calcium 9.6 8.4 - 10.4 mg/dL 02/03/2024 10:49 AM CDT [facility] Anion Gap 11 6 - 16 mmol/L 02/03/2024 10:49 AM CDT [facility] BUN 35(H) 7 - 26 mg/dL 02/03/2024 10:49 AM CDT [facility] Creatinine 1.71(H) 0.72 - 1.25 mg/dL 02/03/2024 10:49 AM T [facility] eGFR by CKD-EPI 44(L) >=90 mL/min/1.7 3 m2 02/03/2024 10:49 AM CDT [facility] Blood BLOOD SPECIMEN / Unknown Venipuncture / Unknown 02/03/2024 10:01 AM CDT 02/03/2024 10:19 AM CDT Travis Bhat [employer] LAB - CHEMISTRY ORDERABLES [facility] [address] [place] [address] * (ABNORMAL) GLUCOSE - POINT OF CARE (02/03/2024 6:06 AM CDT) [facility] Glucose WB/POC 249(H) 70 - 106 mg/dL 02/03/2024 6:09 AM CDT [facility] Specimen Type Cap Fingerstick 2023 6:09 AM CDT [facility] Blood BLOOD SPECIMEN / Unknown 02/03/2024 6:06 AM CDT 02/03/2024 6:09 AM CDT Yessenia Kerr MD LAB - POINT OF CARE ORDERABLES [facility] [id number] [place] [phone] * MAGNESIUM BLOOD (02/02/2024 11:30 PM CDT) Magnesium 2.5 1.6 - 2.6 mg/dL 02/02/2024 11:52 PM CDT [facility] Blood BLOOD SPECIMEN / Unknown Venipuncture / Unknown 02/02/2024 11:30 PM CDT 02/02/2024 11:35 PM CDT Travis Bhat [employer] LAB - CHEMISTRY ORDERABLES Performing Organization Address [facility] de Phone Number [facility] [address] [place] [address] [phone] * PHOSPHORUS BLOOD (02/02/2024 11:30 PM CDT) Phosphorus 4.6 2.3 - 4.7 mg/dL 02/02/2024 11:51 PM CDT [facility] Blood BLOOD SPECIMEN / Unknown Venipuncture / Unknown 02/02/2024 11:30 PM CDT 02/02/2024 11:35 PM CDT Travis Bhat [employer] LAB - CHEMISTRY ORDERABLES Performing Organization Address [facility] de Phone Number [facility] [address] [place] [phone] * (ABNORMAL) BASIC METABOLIC PANEL (CALCIUM TOTAL) (02/02/2024 11:30 PM CDT) Glucose 195(H) 70 - 105 mg/dL 02/02/2024 11:52 PM CDT [facility] Sodium 136 136 - 145 mmol/L 02/02/2024 11:52 PM CDT [facility] Potassium 4.3 3.5 - 5.1 mmol/L 02/02/2024 11:52 PM CDT [facility] Chloride 99 98 - 107 mmol/L 02/02/2024 11:52 PM CDT [facility] CO2 24 22 - 29 mmol/L 02/02/2024 11:52 PM CDT [facility] Calcium 9.3 8.4 - 10.4 mg/dL 02/02/2024 11:52 PM CDT [facility] Anion Gap 13 6 - 16 mmol/L 02/02/2024 11:52 PM CDT [facility] BUN 28(H) 7 - 26 mg/dL 02/02/2024 11:52 PM CDT [facility] Creatinine 1.75(H) 0.72 - 1.25 mg/dL 02/02/2024 11:52 PM CDT [facility] eGFR by CKD-EPI 43(L) >=90 mL/min/1.7 3 m2 02/02/2024 11:52 PM CDT [facility] Blood BLOOD SPECIMEN / Unknown Venipuncture / Unknown 02/02/2024 11:30 PM CDT 02/02/2024 11:35 PM CDT Travis Bhat APRN-BUNDLE TIER LAB - CHEMISTRY ORDERABLES Performing Organization Address City/[facility] Co de Phone Number [facility] [address] [place], [place] [phone] * (ABNORMAL) GLUCOSE - POINT OF CARE (02/02/2024 11:29 PM CDT) [facility] Glucose WB/POC 209(H) 70 - 106 mg/dL 02/02/2024 11:36 PM CDT [facility] Specimen Type Venous 02/02/2024 11:36 PM CDT [facility] Blood BLOOD SPECIMEN / Unknown 02/02/2024 11:29 PM CDT 02/02/2024 11:36 PM CDT Yessenia Kerr MD LAB - POINT OF CARE ORDERABLES Performing Organization Address [facility] Co de Phone Number [facility] [address] [place], [place] [phone] * XR CHEST POST ETT (02/02/2024 5:23 [...] POINT OF CARE (02/02/2024 5:01 PM CDT) Pathologist [facility] Glucose WB/POC 130(H) 70 - 106 mg/dL 02/03/2024 5:50 AM CDT [facility] Specimen Type Cap Fingerstick 2023 5:50 AM CDT [facility] Blood BLOOD SPECIMEN / Unknown 02/02/2024 5:01 PM CDT 02/03/2024 5:50 AM CDT Yessenia Kerr MD LAB - POINT OF CARE ORDERABLES [facility] [address] [place] [address] * (ABNORMAL) BLOOD GASES ARTERIAL (02/02/2024 4:09 PM CDT) Pathologist [facility] pH Arterial 7.55(H) 7.35 - 7.45 pH [...] BLOOD GASES OR DERABLES [facility] [address] [phone] * XR ABDOMEN KUB (02/02/2024 1:20 PM [...] - 106 mg/dL 02/02/2024 12:02 PM CDT [facility] Specimen Type Cap Fingerstick 2023 12:02 PM CDT [facility] Blood BLOOD SPECIMEN / Unknown 02/02/2024 11:56 AM CDT 02/02/2024 12:02 PM CDT Yessenia Kerr MD LAB - POINT OF CARE ORDERABLES Performing Organization Address [facility] Co de Phone Number [facility] [address] [place] [phone] * (ABNORMAL) MAGNESIUM BLOOD (02/02/2024 10:54 AM CDT) Magnesium 1.5(L) 1.6 - 2.6 mg/dL 02/02/2024 11:18 AM CDT [facility] Blood BLOOD SPECIMEN / Unknown Venipuncture / Unknown 02/02/2024 10:54 AM CDT 02/02/2024 11:02 AM CDT Travis Bhat APRN-BUNDLE TIER LAB - CHEMISTRY ORDERABLES Performing Organization Address City/[facility]/ZIP Co de Phone Number [facility] [id number] [place] [phone] * PHOSPHORUS BLOOD (02/02/2024 10:54 AM CDT) Phosphorus 4.4 2.3 - 4.7 mg/dL 02/02/2024 11:17 AM CDT [facility] Blood BLOOD SPECIMEN / Unknown Venipuncture / Unknown 02/02/2024 10:54 AM CDT 02/02/2024 11:02 AM CDT Travis Bhat [employer]ER LAB - CHEMISTRY ORDERABLES Performing Organization Address [facility]/ZIP Co de Phone Number [facility] [address] [place] [address] * (ABNORMAL) BASIC METABOLIC PANEL (CALCIUM TOTAL) (02/02/2024 10:54 AM CDT) Glucose 218(H) 70 - 105 mg/dL 02/02/2024 11:18 AM CDT [facility] Sodium 136 136 - 145 mmol/L 02/02/2024 11:18 AM CDT [facility] Potassium 4.5 3.5 - 5.1 mmol/L 02/02/2024 11:18 AM CDT [facility] Chloride 101 98 - 107 mmol/L 02/02/2024 11:18 AM CDT [facility] CO2 27 22 - 29 mmol/L 02/02/2024 11:18 AM CDT [facility] Calcium 9.3 8.4 - 10.4 mg/dL 02/02/2024 11:18 AM T [facility] Anion Gap 8 6 - 16 mmol/L 02/02/2024 11:18 AM CDT [facility] BUN 21 7 - 26 mg/dL 02/02/2024 11:18 AM CDT [facility] Creatinine 0.82 0.72 - 1.25 mg/dL 02/02/2024 11:18 AM T [facility] eGFR by CKD-EPI >90 >=90 mL/min/1.7 3 m2 02/02/2024 11:18 AM T [facility] Blood BLOOD SPECIMEN / Unknown Venipuncture / Unknown 02/02/2024 10:54 AM CDT 02/02/2024 11:02 AM CDT Travis Bhat [facility] LAB - CHEMISTRY ORDERABLES Performing Organization Address [facility] Co de Phone Number [facility] [address] [place] [address] * (ABNORMAL) GLUCOSE - POINT OF CARE (02/02/2024 4:25 AM CDT) Glucose WB/POC 196(H) 70 - 106 mg/dL 02/02/2024 4:30 AM CDT [facility] Specimen Type Cap Fingerstick 2023 4:30 AM CDT [facility] Blood BLOOD SPECIMEN / Unknown 02/02/2024 4:25 AM CDT 02/02/2024 4:30 AM CDT Yessenia Kerr MD LAB - POINT OF CARE ORDERABLES Performing Organization Address City/[facility]/ZIP Co de Phone Number [facility] [address] [place] [phone] * (ABNORMAL) GLUCOSE - POINT OF CARE (02/01/2024 11:50 PM CDT) Glucose WB/POC 173(H) 70 - 106 mg/dL 02/02/2024 12:15 AM CDT [facility] Specimen Type Cap Fingerstick 2023 12:15 AM CDT [facility] Blood BLOOD SPECIMEN / Unknown 02/01/2024 11:50 PM CDT 02/02/2024 12:15 AM CDT Yessenia Kerr MD LAB - POINT OF CARE ORDERABLES Performing Organization Address [facility] Co de Phone Number [facility] [address] [place] [id number] * (ABNORMAL) MAGNESIUM BLOOD (02/01/2024 10:20 PM CDT) Magnesium 1.5(L) 1.6 - 2.6 mg/dL 02/01/2024 10:46 PM CDT [facility] Blood BLOOD SPECIMEN / Unknown Venipuncture / Unknown 02/01/2024 10:20 PM CDT 02/01/2024 10:28 PM CDT Travis Bhat APRN-BUNDLE TIER LAB - CHEMISTRY ORDERABLES Performing Organization Address [facility] Co de Phone Number [facility] [id number] [place] [phone] * PHOSPHORUS BLOOD (02/01/2024 10:20 PM CDT) Pathologist [facility] Phosphorus 4.3 2.3 - 4.7 mg/dL 02/01/2024 10:44 PM CDT [facility] Blood BLOOD SPECIMEN / Unknown Venipuncture / Unknown 02/01/2024 10:20 PM CDT 02/01/2024 10:28 PM CDT Travis Bhat APRN-BUNDLE TIER LAB - CHEMISTRY ORDERABLES [facility] [address] [place] [address] * (ABNORMAL) BASIC METABOLIC PANEL (CALCIUM TOTAL) (02/01/2024 10:20 PM CDT) Pathologist [facility] Glucose 166(H) 70 - 105 mg/dL 02/01/2024 10:46 PM CDT [facility] Sodium 138 136 - 145 mmol/L 02/01/2024 10:46 PM CDT [facility] Potassium 4.2 3.5 - 5.1 mmol/L 02/01/2024 10:46 PM CDT [facility] Chloride 102 98 - 107 mmol/L 02/01/2024 10:46 PM CDT [facility] CO2 25 22 - 29 mmol/L 02/01/2024 10:46 PM CDT [facility] Calcium 9.8 8.4 - 10.4 mg/dL 02/01/2024 10:46 PM CDT [facility] Anion Gap 11 6 - 16 mmol/L 02/01/2024 10:46 PM CDT [facility] BUN 20 7 - 26 mg/dL 02/01/2024 10:46 PM CDT [facility] Creatinine 0.80 0.72 - 1.25 mg/dL 02/01/2024 10:46 PM CDT [facility] eGFR by CKD-EPI >90 >=90 mL/min/1.7 3 m2 02/01/2024 10:46 PM CDT [facility] Blood BLOOD SPECIMEN / Unknown Venipuncture / Unknown 02/01/2024 10:20 PM CDT 02/01/2024 10:28 PM CDT Travis Bhat APRN-BUNDLE TIER LAB - CHEMISTRY ORDERABLES Performing Organization Address [facility] Co de Phone Number [facility] [id number] [place] [phone] * (ABNORMAL) GLUCOSE - POINT OF CARE (02/01/2024 5:37 PM CDT) Glucose WB/POC 177(H) 70 - 106 mg/dL 02/01/2024 5:41 PM CDT [facility] Specimen Type Cap Fingerstick 2023 5:41 PM CDT [facility] Blood BLOOD SPECIMEN / Unknown 02/01/2024 5:37 PM CDT 02/01/2024 5:41 PM CDT Yessenia Kerr MD LAB - POINT OF CARE ORDERABLES Performing Organization Address [facility] Co de Phone Number [facility] [address] [place] [phone] * (ABNORMAL) GLUCOSE - POINT OF CARE (02/01/2024 11:25 AM CDT) Glucose WB/POC 164(H) 70 - 106 mg/dL 02/01/2024 12:01 PM CDT [facility] Specimen Type Cap Fingerstick 2023 12:01 PM CDT [facility] Blood BLOOD SPECIMEN / Unknown 02/01/2024 11:25 AM CDT 02/01/2024 12:00 PM CDT Yessenia Kerr MD LAB - POINT OF CARE ORDERABLES Performing Organization Address City/[facility]/ZIP Co de Phone Number [facility] [id number] [place] [phone] * MAGNESIUM BLOOD (02/01/2024 11:25 AM CDT) Magnesium 1.8 1.6 - 2.6 mg/dL 02/01/2024 11:56 AM CDT [facility] Blood BLOOD SPECIMEN / Unknown Venipuncture / Unknown 02/01/2024 11:25 AM CDT 02/01/2024 11:38 AM CDT Travis Bhat [employer] INTERLEAFER-BUNDLE TIER LAB - CHEMISTRY ORDERABLES Performing Organization Address City/[facility] Co de Phone Number [facility] [id number] [place] [phone] * PHOSPHORUS BLOOD (02/01/2024 11:25 AM CDT) Phosphorus 4.0 2.3 - 4.7 mg/dL 02/01/2024 11:55 AM CDT [facility] Blood BLOOD SPECIMEN / Unknown Venipuncture / Unknown 02/01/2024 11:25 AM CDT 02/01/2024 11:38 AM CDT Travis Bhat APRN-BUNDLE TIER LAB - CHEMISTRY ORDERABLES Performing Organization Address [facility] de Phone Number [facility] [address] [place] [phone] * (ABNORMAL) BASIC METABOLIC PANEL (CALCIUM TOTAL) (02/01/2024 11:25 AM CDT) Glucose 191(H) 70 - 105 mg/dL 02/01/2024 11:56 AM CDT [facility] Sodium 137 136 - 145 mmol/L 02/01/2024 11:56 AM CDT [facility] Potassium 4.4 3.5 - 5.1 mmol/L 02/01/2024 11:56 AM CDT [facility] Chloride 100 98 - 107 mmol/L 02/01/2024 11:56 AM CDT [facility] CO2 25 22 - 29 mmol/L 02/01/2024 11:56 AM CDT [facility] Calcium 9.4 8.4 - 10.4 mg/dL 02/01/2024 11:56 AM CDT [facility] Anion Gap 12 6 - 16 mmol/L 02/01/2024 11:56 AM CDT [facility] BUN 21 7 - 26 mg/dL 02/01/2024 11:56 AM CDT [facility] Creatinine 0.89 0.72 - 1.25 mg/dL 02/01/2024 11:56 AM CDT [facility] eGFR by CKD-EPI >90 >=90 mL/min/1.7 3 m2 02/01/2024 11:56 AM CDT [facility] Blood BLOOD SPECIMEN / Unknown Venipuncture / Unknown 02/01/2024 11:25 AM CDT 02/01/2024 11:38 AM CDT Travis Bhat [employer] INTERLEAFER-BUNDLE TIER LAB - CHEMISTRY ORDERABLES Performing Organization Address [facility] de Phone Number [facility] [id number] [place] [phone] * (ABNORMAL) GLUCOSE - POINT OF CARE (02/01/2024 4:26 AM CDT) Pathologist [facility] [place] Glucose WB/POC 209(H) 70 - 106 mg/dL 02/01/2024 4:31 AM CDT [facility] Specimen Type Cap Fingerstick 2023 4:31 AM CDT [facility] Blood BLOOD SPECIMEN / Unknown 02/01/2024 4:26 AM CDT 02/01/2024 4:31 AM CDT Yessenia Kerr MD LAB - POINT OF CARE ORDERABLES Performing Organization Address [facility] de Phone Number [facility] [id number] [place] [phone] * MAGNESIUM BLOOD (01/31/2024 10:57 PM CDT) Pathologist [facility] [place] Magnesium 1.7 1.6 - 2.6 mg/dL 01/31/2024 11:23 PM CDT [facility] Blood BLOOD SPECIMEN / Unknown Venipuncture / Unknown 01/31/2024 10:57 PM CDT 01/31/2024 11:03 PM CDT Travis Bhat [employer] INTERLEAFER-BUNDLE TIER LAB - CHEMISTRY ORDERABLES Performing Organization Address [facility] de Phone Number [facility] [address] [place], [place] [phone] * PHOSPHORUS BLOOD (01/31/2024 10:57 PM CDT) Phosphorus 4.2 2.3 - 4.7 mg/dL 01/31/2024 11:21 PM CDT [facility] Blood BLOOD SPECIMEN / Unknown Venipuncture / Unknown 01/31/2024 10:57 PM CDT 01/31/2024 11:03 PM CDT Travis Bhat [employer] INTERLEAFER-BUNDLE TIER LAB - CHEMISTRY ORDERABLES [facility] [address] [place] [address] * (ABNORMAL) BASIC METABOLIC PANEL (CALCIUM TOTAL) (01/31/2024 10:57 PM CDT) Glucose 164(H) 70 - 105 mg/dL 01/31/2024 11:23 PM CDT [facility] Sodium 136 136 - 145 mmol/L 01/31/2024 11:23 PM CDT [facility] Potassium 4.1 3.5 - 5.1 mmol/L 01/31/2024 11:23 PM CDT [facility] Chloride 101 98 - 107 mmol/L 01/31/2024 11:23 PM CDT [facility] CO2 26 22 - 29 mmol/L 01/31/2024 11:23 PM CDT [facility] Calcium 9.4 8.4 - 10.4 mg/dL 01/31/2024 11:23 PM CDT [facility] Anion Gap 9 6 - 16 mmol/L 01/31/2024 11:23 PM CDT [facility] BUN 19 7 - 26 mg/dL 01/31/2024 11:23 PM CDT [facility] Creatinine 0.87 0.72 - 1.25 mg/dL 01/31/2024 11:23 PM CDT [facility] eGFR by CKD-EPI >90 >=90 mL/min/1.7 3 m2 01/31/2024 11:23 PM CDT [facility] Blood BLOOD SPECIMEN / Unknown Venipuncture / Unknown 01/31/2024 10:57 PM CDT 01/31/2024 11:03 PM CDT Travis Tejadakinson [employer] INTERLEAFER-BUNDLE TIER LAB - CHEMISTRY ORDERABLES Performing Organization Address [facility] Co de Phone Number [facility] [address] [place] [phone] * (ABNORMAL) GLUCOSE - POINT OF CARE (01/31/2024 8:43 PM CDT) Glucose WB/POC 154(H) 70 - 106 mg/dL 01/31/2024 8:47 PM CDT [facility] Specimen Type Cap Fingerstick 2023 8:47 PM CDT [facility] Blood BLOOD SPECIMEN / Unknown 01/31/2024 8:43 PM CDT 01/31/2024 8:47 PM CDT Yessenia Kerr MD LAB - POINT OF CARE ORDERABLES Performing Organization Address [facility] Co de Phone Number [facility] [address] [place] [phone] * (ABNORMAL) GLUCOSE - POINT OF CARE (01/31/2024 6:31 PM CDT) Glucose WB/POC 175(H) 70 - 106 mg/dL 01/31/2024 6:36 PM CDT [facility] Specimen Type Cap Fingerstick 2023 6:36 PM CDT [facility] Blood BLOOD SPECIMEN / Unknown 01/31/2024 6:31 PM CDT 01/31/2024 6:36 PM CDT Yessenia Kerr MD LAB - POINT OF CARE ORDERABLES Performing Organization Address City/[facility]/ZIP Co de Phone Number [facility] [address] [place] [address] [phone] * (ABNORMAL) MAGNESIUM BLOOD (01/31/2024 1:19 PM CDT) Magnesium 1.3(L) 1.6 - 2.6 mg/dL 01/31/2024 1:56 PM CDT [facility] Blood BLOOD SPECIMEN / Unknown Venipuncture / Unknown 01/31/2024 1:19 PM CDT 01/31/2024 1:32 PM CDT Travis Bhat [employer] P[employer]ER INTERLEAFER-[facility] LAB - CHEMISTRY ORDERABLES Performing Organization Address [facility] Co de Phone Number [facility] [address] [place] [address] [phone] * PHOSPHORUS BLOOD (01/31/2024 1:19 PM CDT) Phosphorus 3.8 2.3 - 4.7 mg/dL 01/31/2024 1:56 PM CDT [facility] Blood BLOOD SPECIMEN / Unknown Venipuncture / Unknown 01/31/2024 1:19 PM CDT 01/31/2024 1:32 PM CDT Travis Bhat [employer] P[employer]ER INTERLEAFER-[facility] LAB - CHEMISTRY ORDERABLES Performing Organization Address [facility] de Phone Number [facility] [address] [place] [address] [phone] * (ABNORMAL) GLUCOSE - POINT OF CARE (01/31/2024 1:07 PM CDT) Glucose WB/POC 136(H) 70 - 106 mg/dL 01/31/2024 3:39 PM CDT [facility] Specimen Type Cap Fingerstick 2023 3:39 PM CDT [facility] Blood BLOOD SPECIMEN / Unknown 01/31/2024 1:07 PM CDT 01/31/2024 3:39 PM CDT Yessenia Kerr MD LAB - POINT OF CARE ORDERABLES Performing Organization Address [facility] Co de Phone Number [facility] [address] [place] [address] [phone] * (ABNORMAL) BASIC METABOLIC PANEL (CALCIUM TOTAL) (01/31/2024 11:16 AM CDT) Glucose 119(H) 70 - 105 mg/dL 01/31/2024 11:39 AM CDT [facility] Sodium 137 136 - 145 mmol/L 01/31/2024 11:39 AM CDT [facility] Potassium 4.4 3.5 - 5.1 mmol/L 01/31/2024 11:39 AM CDT [facility] Chloride 101 98 - 107 mmol/L 01/31/2024 11:39 AM CDT [facility] CO2 23 22 - 29 mmol/L 01/31/2024 11:39 AM CDT [facility] Calcium 9.6 8.4 - 10.4 mg/dL 01/31/2024 11:39 AM CDT [facility] Anion Gap 13 6 - 16 mmol/L 01/31/2024 11:39 AM CDT [facility] BUN 17 7 - 26 mg/dL 01/31/2024 11:39 AM CDT [facility] Creatinine 0.80 0.72 - 1.25 mg/dL 01/31/2024 11:39 AM CDT [facility] eGFR by CKD-EPI >90 >=90 mL/min/1.7 3 m2 01/31/2024 11:39 AM CDT [facility] Blood BLOOD SPECIMEN / Unknown Venipuncture / Unknown 01/31/2024 11:16 AM CDT 01/31/2024 11:22 AM CDT Travis Bhat [employer] INTERLEAFER-BUNDLE [employer]ER LAB - CHEMISTRY ORDERABLES Performing Organization Address [facility] Co de Phone Number [facility] [id number] [place] [phone] * (ABNORMAL) MAGNESIUM BLOOD (01/31/2024 11:16 AM CDT) Magnesium 1.4(L) 1.6 - 2.6 mg/dL 01/31/2024 11:39 AM CDT [facility] Blood BLOOD SPECIMEN / Unknown Venipuncture / Unknown 01/31/2024 11:16 AM CDT 01/31/2024 11:22 AM CDT Travis Bhat [employer] INTERLEAFER-BUNDLE TIER LAB - CHEMISTRY ORDERABLES Performing Organization Address City/[facility] Co de Phone Number [facility] [address] [place] [address] * (ABNORMAL) GLUCOSE - POINT OF CARE (01/31/2024 5:46 AM CDT) Glucose WB/POC 122(H) 70 - 106 mg/dL 01/31/2024 3:39 PM CDT [facility] Specimen Type Cap Fingerstick 2023 3:39 PM CDT [facility] Blood BLOOD SPECIMEN / Unknown 01/31/2024 5:46 AM CDT 01/31/2024 3:39 PM CDT Yessenia Kerr MD LAB - POINT OF CARE ORDERABLES Performing Organization Address City/[facility]/ZIP Co de Phone Number [facility] [address] [place] [address] [phone] * (ABNORMAL) GLUCOSE - POINT OF CARE (01/31/2024 12:18 AM CDT) Glucose WB/POC 115(H) 70 - 106 mg/dL 01/31/2024 12:22 AM CDT [facility] Specimen Type Cap Fingerstick 2023 12:22 AM CDT [facility] Blood BLOOD SPECIMEN / Unknown 01/31/2024 12:18 AM CDT 01/31/2024 12:22 AM CDT Yessenia Kerr MD LAB - POINT OF CARE ORDERABLES [facility] [address] [place] [address] [phone] * (ABNORMAL) GLUCOSE - POINT OF CARE (01/30/2024 4:09 PM CDT) Glucose WB/POC 135(H) 70 - 106 mg/dL 01/30/2024 4:55 PM CDT [facility] Specimen Type Cap Fingerstick 2023 4:55 PM CDT [facility] Blood BLOOD SPECIMEN / Unknown 01/30/2024 4:09 PM CDT 01/30/2024 4:55 PM CDT Yessenia Kerr MD LAB - POINT OF CARE ORDERABLES Performing Organization Address City/[facility] Co de Phone Number [facility] [address] [place] [phone] * (ABNORMAL) GLUCOSE - POINT OF CARE (01/30/2024 12:59 PM CDT) Glucose WB/POC 140(H) 70 - 106 mg/dL 01/30/2024 4:55 PM CDT [facility] Specimen Type Cap Fingerstick 2023 4:55 PM CDT [facility] Blood BLOOD SPECIMEN / Unknown 01/30/2024 12:59 PM CDT 01/30/2024 4:55 PM CDT Yessenia Kerr MD LAB - POINT OF CARE ORDERABLES Performing Organization Address [facility] de Phone Number [facility] [address] [place] [phone] * (ABNORMAL) GLUCOSE - POINT OF CARE (01/30/2024 8:24 AM CDT) Glucose WB/POC 132(H) 70 - 106 mg/dL 01/30/2024 8:28 AM CDT [facility] Specimen Type Cap Fingerstick 2023 8:28 AM CDT [facility] Blood BLOOD SPECIMEN / Unknown 01/30/2024 8:24 AM CDT 01/30/2024 8:28 AM CDT Yessenia Kerr MD LAB - POINT OF CARE ORDERABLES Performing Organization Address City/[facility] Co de Phone Number [facility] [address] [place] [phone] * EGD WITH PEG PLACEMENT (01/30/2024 [...] Procedure Code(s): ? --- Professional --- ? 88124, Esophagogastrodu odenoscopy, flexible, transoral; with directed ? placement of percutaneous gastrostomy tube ? --- Technical --- ? 05866, Esophagogastrodu odenoscopy, flexible, transoral; with directed ? placement of percutaneous gastrostomy tube Diagnosis Code(s): ? --- Professional --- ? Z43.1, Encounter for attention to gastrostomy ? R63.39, Other feeding difficulties ? --- Technical --- ? Z43.1, Encounter for attention to gastrostomy ? R63.39, Other feeding difficulties CPT copyright 2020 [employer]. All rights reserved. The codes documented in this report are preliminary and upon medical record coder review may be revised to meet current compliance requirements. Dr. Jeff Ruffin MD Jeff Ruffin MD 01/30/2024 3:19:32 PM This report has been signed electronically. Number of Addenda: 0 Note Initiated On: 01/30/2024 6:35 AM [facility] 01/30/2024 6:35 AM CDT Jeff Ruffin MD GI PROCEDURE ORDERAB LES Performing Organization Address City/State/[facility] Co de Phone Number [facility] [place] [address] * (ABNORMAL) GLUCOSE - POINT OF CARE (01/30/2024 6:26 AM CDT) Glucose WB/POC 152(H) 70 - 106 mg/dL 01/30/2024 6:31 AM CDT [facility] Specimen Type Cap Fingerstick 2023 6:31 AM CDT [facility] Blood BLOOD SPECIMEN / Unknown 01/30/2024 6:26 AM CDT 01/30/2024 6:31 AM CDT Yessenia Kerr MD LAB - POINT OF CARE ORDERABLES Performing Organization Address [facility] de Phone Number [facility] [id number] [place] [phone] * PHOSPHORUS BLOOD (01/30/2024 4:29 AM CDT) [facility] Phosphorus 3.7 2.3 - 4.7 mg/dL 01/30/2024 5:06 AM CDT [facility] Blood BLOOD SPECIMEN / Unknown Venipuncture / Unknown 01/30/2024 4:29 AM CDT 01/30/2024 4:37 AM CDT Andrea Zamorano MD LAB - CHEMISTRY CHRISTIAN RAZO Performing Organization Address [facility] de Phone Number [facility] [address] [place] [phone] * (ABNORMAL) MAGNESIUM BLOOD (01/30/2024 4:29 AM CDT) [facility] Magnesium 1.5(L) 1.6 - 2.6 mg/dL 01/30/2024 5:06 AM CDT [facility] Blood BLOOD SPECIMEN / Unknown Venipuncture / Unknown 01/30/2024 4:29 AM CDT 01/30/2024 4:37 AM CDT Andrea Zamorano MD LAB - CHEMISTRY CHRISTIAN RAZO Performing Organization Address [facility] de Phone Number [facility] [address] [place] [phone] * (ABNORMAL) CBC W AUTO DIFFERENTIAL (01/30/2024 4:29 AM CDT) [facility] WBC 10.0 4.0 - 10.7 x10E9/L 01/30/2024 4:48 AM CDT [facility] RBC Count 4.27(L) 4.30 - 5.80 x10E12/L 01/30/2024 4:48 AM CDT [facility] Hemoglobin 12.4(L) 13.3 - 17.5 g/dL 01/30/2024 4:48 AM CDT [facility] Hematocrit 38.7 38.7 - 51.1 % [...] - 74.0 % 01/30/2024 4:48 AM CDT [facility] Lymphocyte % 21.6 17.0 - 47.0 [...] - 0.13 x10E9/L 01/30/2024 4:48 AM CDT [facility] Blood BLOOD SPECIMEN / Unknown Venipuncture / Unknown 01/30/2024 4:29 AM CDT 01/30/2024 4:37 AM CDT Andrea Zamorano MD LAB - HEMATOLOGY ORD ERABLES [facility] [address] [place] [address] * (ABNORMAL) COMPREHENSIVE METABOLIC PANEL (01/30/2024 4:29 AM CDT) Glucose 146(H) 70 - 105 mg/dL 01/30/2024 5:06 AM CDT [facility] Sodium 139 136 - 145 mmol/L 01/30/2024 5:06 AM T [facility] Potassium 4.1 3.5 - 5.1 mmol/L 01/30/2024 5:06 AM [facility] Chloride 101 98 - 107 mmol/L 01/30/2024 5:06 AM CDT [facility] CO2 26 22 - 29 mmol/L 01/30/2024 5:06 AM T [facility] Calcium 9.6 8.4 - 10.4 mg/dL 01/30/2024 5:06 AM [facility] Anion Gap 12 6 - 16 mmol/L 01/30/2024 5:06 AM T [facility] BUN 17 7 - 26 mg/dL 01/30/2024 5:06 AM T [facility] Creatinine 0.80 0.72 - 1.25 mg/dL 01/30/2024 5:06 AM [facility] Alkaline Phosphatase 81 40 - 150 U/L 01/30/2024 5:06 AM CDT [facility] ALT 9 0 - 55 U/L 01/30/2024 5:06 AM CDT [facility] AST 14 5 - 34 U/L 01/30/2024 5:06 AM [facility] Protein Total 7.8 6.4 - 8.3 gm/dL 01/30/2024 5:06 AM [facility] Albumin 2.7(L) 3.4 - 5.0 gm/dL 01/30/2024 5:06 AM CDT [facility] Bilirubin Total 0.2 0.2 - 1.2 mg/dL 01/30/2024 5:06 AM CDT [facility] eGFR by CKD-EPI >90 >=90 mL/min/1.7 3 m2 01/30/2024 5:06 AM CDT [facility] Blood BLOOD SPECIMEN / Unknown Venipuncture / Unknown 01/30/2024 4:29 AM CDT 01/30/2024 4:37 AM CDT Andrea Zamorano MD LAB - CHEMISTRY SARAHE DUNG Performing Organization Address City/[facility] Co de Phone Number [facility] [address] [place] [address] [phone] * (ABNORMAL) GLUCOSE - POINT OF CARE (01/30/2024 12:24 AM CDT) Glucose WB/POC 152(H) 70 - 106 mg/dL 01/30/2024 12:28 AM CDT [facility] Specimen Type Cap Fingerstick 2023 12:28 AM CDT [facility] Blood BLOOD SPECIMEN / Unknown 01/30/2024 12:24 AM CDT 01/30/2024 12:28 AM CDT Yessenia Kerr MD LAB - POINT OF CARE ORDERABLES Performing Organization Address City/[facility]/ZIP Co de Phone Number [facility] [id number] [place] [phone] * (ABNORMAL) GLUCOSE - POINT OF CARE (01/29/2024 6:38 PM CDT) Glucose WB/POC 181(H) 70 - 106 mg/dL 01/29/2024 6:43 PM CDT [facility] Specimen Type Cap Fingerstick 2023 6:43 PM CDT [facility] Blood BLOOD SPECIMEN / Unknown 01/29/2024 6:38 PM CDT 01/29/2024 6:43 PM CDT Yessenia Kerr MD LAB - POINT OF CARE ORDERABLES Performing Organization Address City/[facility] Co de Phone Number [facility] [address] [place] [phone] * (ABNORMAL) GLUCOSE - POINT OF CARE (01/29/2024 12:32 PM CDT) Glucose WB/POC 160(H) 70 - 106 mg/dL 01/29/2024 12:37 PM CDT [facility] Specimen Type Cap Fingerstick 2023 12:37 PM CDT [facility] Blood BLOOD SPECIMEN / Unknown 01/29/2024 12:32 PM CDT 01/29/2024 12:37 PM CDT Yessenia Kerr MD LAB - POINT OF CARE ORDERABLES Performing Organization Address [facility] Co de Phone Number [facility] [address] [place] [phone] * (ABNORMAL) GLUCOSE - POINT OF CARE (01/29/2024 7:59 AM CDT) Glucose WB/POC 146(H) 70 - 106 mg/dL 01/29/2024 8:04 AM CDT [facility] Specimen Type Cap Fingerstick 2023 8:04 AM CDT [facility] Blood BLOOD SPECIMEN / Unknown 01/29/2024 7:59 AM CDT 01/29/2024 8:04 AM CDT Yessenia Kerr MD LAB - POINT OF CARE ORDERABLES Performing Organization Address [facility] Co de Phone Number [facility] [address] [place] [phone] * (ABNORMAL) GLUCOSE - POINT OF CARE (01/29/2024 6:56 AM CDT) Glucose WB/POC 124(H) 70 - 106 mg/dL 01/29/2024 6:57 AM CDT [facility] Specimen Type Cap Fingerstick 2023 6:57 AM CDT [facility] Blood BLOOD SPECIMEN / Unknown 01/29/2024 6:56 AM CDT 01/29/2024 6:57 AM CDT Yessenia Kerr MD LAB - POINT OF CARE ORDERABLES Performing Organization Address [facility] Co de Phone Number [facility] [id number] [place] [id number] * PHOSPHORUS BLOOD (01/29/2024 2:59 AM CDT) Phosphorus 4.1 2.3 - 4.7 mg/dL 01/29/2024 3:29 AM CDT [facility] Blood BLOOD SPECIMEN / Unknown Venipuncture / Unknown 01/29/2024 2:59 AM CDT 01/29/2024 3:02 AM CDT Andrea Zamorano MD LAB - CHEMISTRY CHRISTIAN RAZO Performing Organization Address [facility] de Phone Number [facility] [address] [place] [id number] * MAGNESIUM BLOOD (01/29/2024 2:59 AM CDT) Magnesium 1.6 1.6 - 2.6 mg/dL 01/29/2024 3:29 AM CDT [facility] Blood BLOOD SPECIMEN / Unknown Venipuncture / Unknown 01/29/2024 2:59 AM CDT 01/29/2024 3:02 AM CDT Andrea Zamorano MD LAB - CHEMISTRY ORDAnirudh RAZO Performing Organization Address [facility] de Phone Number [facility] [id number] [place] [id number] * (ABNORMAL) CBC W AUTO DIFFERENTIAL (01/29/2024 2:59 AM CDT) WBC 10.5 4.0 - 10.7 x10E9/L 01/29/2024 3:10 AM CDT [facility] RBC Count 4.40 4.30 - 5.80 [...] - 1.00 x10E9/L 01/29/2024 3:10 AM CDT [facility] Eosinophil Absolute 0.21 0.00 - 0.60 x10E9/L 01/29/2024 3:10 AM CDT [facility] Basophil Absolute 0.04 0.00 - 0.13 x10E9/L 01/29/2024 3:10 AM CDT [facility] Blood BLOOD SPECIMEN / Unknown Venipuncture / Unknown 01/29/2024 2:59 AM CDT 01/29/2024 3:02 AM CDT Andrea Zamorano MD LAB - HEMATOLOGY ORD ERABLES [facility] [address] [place] [address] * (ABNORMAL) COMPREHENSIVE METABOLIC PANEL (01/29/2024 2:59 AM CDT) Glucose 135(H) 70 - 105 mg/dL 01/29/2024 3:29 AM CDT [facility] Sodium 140 136 - 145 mmol/L 01/29/2024 3:29 AM CDT [facility] Potassium 4.1 3.5 - 5.1 mmol/L 01/29/2024 3:29 AM CDT [facility] Chloride 100 98 - 107 mmol/L 01/29/2024 3:29 AM CDT [facility] CO2 27 22 - 29 mmol/L 01/29/2024 3:29 AM CDT [facility] Calcium 9.3 8.4 - 10.4 mg/dL 01/29/2024 3:29 AM CDT [facility] Anion Gap 13 6 - 16 mmol/L 01/29/2024 3:29 AM CDT [facility] BUN 15 7 - 26 mg/dL 01/29/2024 3:29 AM CDT [facility] Creatinine 0.74 0.72 - 1.25 mg/dL 01/29/2024 3:29 AM CDT [facility] Alkaline Phosphatase 90 40 - 150 U/L 01/29/2024 3:29 AM CDT [facility] ALT 10 0 - 55 U/L 01/29/2024 3:29 AM CDT [facility] AST 14 5 - 34 U/L 01/29/2024 3:29 AM CDT [facility] Protein Total 8.2 6.4 - 8.3 gm/dL 01/29/2024 3:29 AM CDT [facility] Albumin 2.7(L) 3.4 - 5.0 gm/dL 01/29/2024 3:29 AM CDT [facility] Bilirubin Total 0.2 0.2 - 1.2 mg/dL 01/29/2024 3:29 AM CDT [facility] eGFR by CKD-EPI >90 >=90 mL/min/1.7 3 m2 01/29/2024 3:29 AM CDT [facility] Blood BLOOD SPECIMEN / Unknown Venipuncture / Unknown 01/29/2024 2:59 AM CDT 01/29/2024 3:02 AM CDT Andrea Zamorano MD LAB - CHEMISTRY CHRISTIAN RAZO Performing Organization Address [facility] Co de Phone Number [facility] [id number] [place] [address] * (ABNORMAL) GLUCOSE - POINT OF CARE (01/29/2024 12:09 AM CDT) Glucose WB/POC 128(H) 70 - 106 mg/dL 01/29/2024 4:35 PM CDT [facility] Specimen Type Cap Fingerstick 2023 4:35 PM CDT [facility] Blood BLOOD SPECIMEN / Unknown 01/29/2024 12:09 AM CDT 01/29/2024 4:35 PM CDT Yessenia Kerr MD LAB - POINT OF CARE ORDERABLES Performing Organization Address [facility] de Phone Number [facility] [id number] [place] [address] * (ABNORMAL) GLUCOSE - POINT OF CARE (01/28/2024 8:16 PM CDT) Glucose WB/POC 136(H) 70 - 106 mg/dL 01/28/2024 8:18 PM CDT [facility] Specimen Type Cap Fingerstick 2023 8:18 PM CDT [facility] Blood BLOOD SPECIMEN / Unknown 01/28/2024 8:16 PM CDT 01/28/2024 8:18 PM CDT Yessenia Kerr MD LAB - POINT OF CARE ORDERABLES Performing Organization Address City/[facility]/ZIP Co de Phone Number [facility] [id number] [place] [address] * (ABNORMAL) GLUCOSE - POINT OF CARE (01/28/2024 6:58 PM CDT) Glucose WB/POC 128(H) 70 - 106 mg/dL 01/28/2024 6:59 PM CDT [facility] Specimen Type Cap Fingerstick 2023 6:59 PM CDT [facility] Blood BLOOD SPECIMEN / Unknown 01/28/2024 6:58 PM CDT 01/28/2024 6:59 PM CDT Yessenia Kerr MD LAB - POINT OF CARE ORDERABLES Performing Organization Address [facility] Co de Phone Number [facility] [address] [place] [address] * (ABNORMAL) GLUCOSE - POINT OF CARE (01/28/2024 12:09 PM CDT) Glucose WB/POC 133(H) 70 - 106 mg/dL 01/28/2024 12:12 PM CDT [facility] Specimen Type Cap Fingerstick 2023 12:12 PM CDT [facility] Blood BLOOD SPECIMEN / Unknown 01/28/2024 12:09 PM CDT 01/28/2024 12:12 PM CDT Yessenia Kerr MD LAB - POINT OF CARE ORDERABLES Performing Organization Address [facility]/ZIP Co de Phone Number [facility] [id number] [place] [address] * (ABNORMAL) GLUCOSE - POINT OF CARE (01/28/2024 8:28 AM CDT) Glucose WB/POC 150(H) 70 - 106 mg/dL 01/28/2024 8:33 AM CDT [facility] Specimen Type Cap Fingerstick 2023 8:33 AM CDT [facility] Blood BLOOD SPECIMEN / Unknown 01/28/2024 8:28 AM CDT 01/28/2024 8:33 AM CDT Yessenia Kerr MD LAB - POINT OF CARE ORDERABLES Performing Organization Address City/[facility]/ZIP Co de Phone Number [facility] [address] [place] [address] * PHOSPHORUS BLOOD (01/28/2024 3:41 AM CDT) Pathologist [facility] Phosphorus 4.4 2.3 - 4.7 mg/dL 01/28/2024 5:06 AM CDT [facility] Blood BLOOD SPECIMEN / Unknown Venipuncture / Unknown 01/28/2024 3:41 AM CDT 01/28/2024 4:28 AM CDT Andrea Zamorano MD LAB - CHEMISTRY CHRISTIAN RAZO Performing Organization Address City/[facility]/ZIP Co de Phone Number [facility] [id number] [place] [address] * MAGNESIUM BLOOD (01/28/2024 3:41 AM CDT) Pathologist [facility] Magnesium 1.7 1.6 - 2.6 mg/dL 01/28/2024 5:06 AM CDT [facility] Blood BLOOD SPECIMEN / Unknown Venipuncture / Unknown 01/28/2024 3:41 AM CDT 01/28/2024 4:28 AM CDT Andrea Zamorano MD LAB - CHEMISTRY CHRISTIAN RAZO Performing Organization Address City/[facility]/ZIP Co de Phone Number [facility] [id number] [place] [address] * (ABNORMAL) CBC W AUTO DIFFERENTIAL (01/28/2024 3:41 AM CDT) [facility] WBC 8.5 4.0 - 10.7 x10E9/L 01/28/2024 4:47 AM CDT [facility] RBC Count 4.06(L) 4.30 - 5.80 x10E12/L 01/28/2024 4:47 AM CDT [facility] Hemoglobin 11.8(L) 13.3 - 17.5 g/dL [...] - 47.0 % 01/28/2024 4:47 AM CDT [facility] Monocyte % 9.9 3.0 - 11.0 % 01/28/2024 4:47 AM CDT [facility] Eosinophil % 3.2 0.0 - 7.0 % 01/28/2024 4:47 AM CDT [facility] Basophil % 0.5 0.0 - 1.6 % 01/28/2024 4:47 AM CDT [facility] Immature Granulocytes % 0.9 0.0 - 1.0 % 01/28/2024 4:47 AM CDT [facility] Neutrophil Absolute 5.06 1.60 - 7.50 x10E9/L 01/28/2024 4:47 AM CDT [facility] Lymphocyte Absolute 2.19 1.00 - 4.40 x10E9/L 01/28/2024 4:47 AM CDT [facility] Monocyte Absolute 0.84 0.15 - 1.00 x10E9/L 01/28/2024 4:47 AM CDT [facility] Eosinophil Absolute 0.27 0.00 - 0.60 x10E9/L 01/28/2024 4:47 AM CDT [facility] Basophil Absolute 0.04 0.00 - 0.13 x10E9/L 01/28/2024 4:47 AM CDT [facility] Blood BLOOD SPECIMEN / Unknown Venipuncture / Unknown 01/28/2024 3:41 AM CDT 01/28/2024 4:28 AM CDT Andrea Zamorano MD LAB - HEMATOLOGY ORD ERABLES [facility] [address] [place] [address] * (ABNORMAL) COMPREHENSIVE METABOLIC PANEL (01/28/2024 3:41 AM CDT) [facility] Glucose 126(H) 70 - 105 mg/dL 01/28/2024 5:06 AM CDT [facility] Sodium 139 136 - 145 mmol/L 01/28/2024 5:06 AM CDT [facility] Potassium 4.0 3.5 - 5.1 mmol/L 01/28/2024 5:06 AM CDT [facility] Chloride 102 98 - 107 mmol/L 01/28/2024 5:06 AM CDT [facility] CO2 26 22 - 29 mmol/L 01/28/2024 5:06 AM CDT [facility] Calcium 9.3 8.4 - 10.4 mg/dL 01/28/2024 5:06 AM CDT [facility] Anion Gap 11 6 - 16 mmol/L 01/28/2024 5:06 AM CDT [facility] BUN 15 7 - 26 mg/dL 01/28/2024 5:06 AM CDT [facility] Creatinine 0.75 0.72 - 1.25 mg/dL 01/28/2024 5:06 AM CDT [facility] Alkaline Phosphatase 90 40 - 150 U/L 01/28/2024 5:06 AM CDT [facility] ALT 12 0 - 55 U/L 01/28/2024 5:06 AM CDT [facility] AST 17 5 - 34 U/L 01/28/2024 5:06 AM CDT [facility] Protein Total 7.8 6.4 - 8.3 gm/dL 01/28/2024 5:06 AM T [facility] Albumin 2.6(L) 3.4 - 5.0 gm/dL 01/28/2024 5:06 AM CDT [facility] Bilirubin Total 0.3 0.2 - 1.2 mg/dL 01/28/2024 5:06 AM CDT [facility] eGFR by CKD-EPI >90 >=90 mL/min/1.7 3 m2 01/28/2024 5:06 AM CDT [facility] Blood BLOOD SPECIMEN / Unknown Venipuncture / Unknown 01/28/2024 3:41 AM CDT 01/28/2024 4:28 AM CDT Andrea Zamorano MD LAB - CHEMISTRY ORDE DUNG Performing Organization Address [facility] Co de Phone Number [facility] [address] [place] [address] * (ABNORMAL) GLUCOSE - POINT OF CARE (01/28/2024 3:40 AM CDT) [facility] Glucose WB/POC 127(H) 70 - 106 mg/dL 01/28/2024 4:47 AM CDT [facility] Specimen Type Venous 01/28/2024 4:47 AM CDT [facility] Blood BLOOD SPECIMEN / Unknown 01/28/2024 3:40 AM CDT 01/28/2024 4:47 AM CDT Sherie Beltre MD LAB - POINT OF CARE ORDERABLES Performing Organization Address [facility] Co de Phone Number [facility] [address] [place] [address] * (ABNORMAL) GLUCOSE - POINT OF CARE (01/28/2024 12:58 AM CDT) Glucose WB/POC 119(H) 70 - 106 mg/dL 01/28/2024 12:59 AM CDT [facility] Specimen Type Cap Fingerstick 2023 12:59 AM CDT [facility] Blood BLOOD SPECIMEN / Unknown 01/28/2024 12:58 AM CDT 01/28/2024 12:59 AM CDT Sherie Beltre MD LAB - POINT OF CARE ORDERABLES Performing Organization Address City/[facility]/ZIP Co de Phone Number [facility] [address] [place] [address] * GLUCOSE - POINT OF CARE (01/27/2024 8:14 PM CDT) Glucose WB/POC 92 70 - 106 mg/dL 01/27/2024 8:18 PM CDT [facility] Specimen Type Cap Fingerstick 2023 8:18 PM CDT [facility] Blood BLOOD SPECIMEN / Unknown 01/27/2024 8:14 PM CDT 01/27/2024 8:18 PM CDT Sherie Beltre MD LAB - POINT OF CARE ORDERABLES [facility] [address] [place] [address] * GLUCOSE - POINT OF CARE (01/27/2024 4:20 PM CDT) Glucose WB/POC 96 70 - 106 mg/dL 01/27/2024 4:25 PM CDT [facility] Specimen Type Cap Fingerstick 2023 4:25 PM CDT [facility] Blood BLOOD SPECIMEN / Unknown 01/27/2024 4:20 PM CDT 01/27/2024 4:25 PM CDT Sherie Beltre MD LAB - POINT OF CARE ORDERABLES [facility] [address] [place] [address] * (ABNORMAL) BLOOD GASES+LYTES ARTERIAL [...] BLOOD GASES OR DERABLES Performing Organization Address [facility] Co de Phone Number [facility] [address] [place] [id number] [phone] * GLUCOSE - POINT OF CARE (01/27/2024 12:31 PM CDT) [facility] Glucose WB/POC 95 70 - 106 mg/dL 01/27/2024 12:36 PM CDT [facility] Specimen Type Arterial 01/27/2024 12:36 PM CDT [facility] Blood BLOOD SPECIMEN / Unknown 01/27/2024 12:31 PM CDT 01/27/2024 12:36 PM CDT Sherie Beltre MD LAB - POINT OF CARE ORDERABLES Performing Organization Address [facility] Co de Phone Number [facility] [address] [place] [address] * CT HEAD NON CONTRAST (01/27/2024 12:23 [...] CARE (01/27/2024 8:45 AM CDT) Pathologist [facility] Glucose WB/POC 109(H) 70 - 106 mg/dL 01/27/2024 8:50 AM CDT [facility] Specimen Type Cap Fingerstick 2023 8:50 AM CDT [facility] Blood BLOOD SPECIMEN / Unknown 01/27/2024 8:45 AM CDT 01/27/2024 8:49 AM CDT Sherie Beltre MD LAB - POINT OF CARE ORDERABLES Performing Organization Address City/[facility] Co de Phone Number [facility] [address] [place], [place] [phone] * (ABNORMAL) CK BLOOD (01/27/2024 5:37 AM CDT) Pathologist [facility] CK 228(H) 30 - 200 U/L 01/27/2024 12:52 PM CDT [facility] Blood BLOOD SPECIMEN / Unknown Venipuncture / Unknown 01/27/2024 5:37 AM CDT 01/27/2024 12:37 PM CDT Pricila Harrison [employer] LAB - CHEMISTRY ORDERABLES Performing Organization Address City/[facility] Co de Phone Number [facility] [address] [place] [address] * PHOSPHORUS BLOOD (01/27/2024 5:37 AM CDT) [facility] Phosphorus 4.0 2.3 - 4.7 mg/dL 01/27/2024 6:03 AM CDT [facility] Blood BLOOD SPECIMEN / Unknown Venipuncture / Unknown 01/27/2024 5:37 AM CDT 01/27/2024 5:43 AM CDT Andrea Zamorano MD LAB - CHEMISTRY CHRISTIAN RAZO Performing Organization Address [facility] de Phone Number [facility] [id number] [place] [address] * MAGNESIUM BLOOD (01/27/2024 5:37 AM CDT) [facility] Magnesium 1.6 1.6 - 2.6 mg/dL 01/27/2024 6:03 AM CDT [facility] Blood BLOOD SPECIMEN / Unknown Venipuncture / Unknown 01/27/2024 5:37 AM CDT 01/27/2024 5:43 AM CDT Andrea Zamorano MD LAB - CHEMISTRY CHRISTIAN RAZO Performing Organization Address [facility] de Phone Number [facility] [address] [place] [address] * (ABNORMAL) CBC W AUTO DIFFERENTIAL (01/27/2024 5:37 AM CDT) [facility] WBC 8.2 4.0 - 10.7 x10E9/L 01/27/2024 5:55 AM CDT [facility] RBC Count 3.91(L) 4.30 - 5.80 x10E12/L 01/27/2024 5:55 AM CDT [facility] Hemoglobin 11.4(L) 13.3 - 17.5 g/dL 01/27/2024 5:55 AM CDT [facility] Hematocrit 35.5(L) 38.7 - 51.1 % 01/27/2024 5:55 AM CDT [facility] MCV 90.8 80.0 - 98.0 fL 01/27/2024 5:55 AM CDT [facility] MCH 29.2 26.7 [...] Zamorano MD LAB - HEMATOLOGY ORD ERABLES [facility] [address] [place] [address] * (ABNORMAL) COMPREHENSIVE METABOLIC PANEL (01/27/2024 5:37 AM CDT) [facility] Glucose 97 70 - 105 mg/dL 01/27/2024 6:03 AM CDT [facility] Sodium 138 136 - 145 mmol/L 01/27/2024 6:03 AM CDT [facility] Potassium 3.6 3.5 - 5.1 mmol/L 01/27/2024 6:03 AM CDT [facility] Chloride 102 98 - 107 mmol/L 01/27/2024 6:03 AM T [facility] CO2 25 22 - 29 mmol/L 01/27/2024 6:03 AM T [facility] Calcium 9.4 8.4 - 10.4 mg/dL 01/27/2024 6:03 AM T [facility] Anion Gap 11 6 - 16 mmol/L 01/27/2024 6:03 AM CDT [facility] BUN 12 7 - 26 mg/dL 01/27/2024 6:03 AM CDT [facility] Creatinine 0.76 0.72 - 1.25 mg/dL 01/27/2024 6:03 AM [facility] Alkaline Phosphatase 90 40 - 150 U/L 01/27/2024 6:03 AM CDT [facility] ALT 16 0 - 55 U/L 01/27/2024 6:03 AM CDT [facility] AST 23 5 - 34 U/L 01/27/2024 6:03 AM T [facility] Protein Total 7.5 6.4 - 8.3 gm/dL 01/27/2024 6:03 AM T [facility] Albumin 2.5(L) 3.4 - 5.0 gm/dL 01/27/2024 6:03 AM CDT [facility] Bilirubin Total 0.4 0.2 - 1.2 mg/dL 01/27/2024 6:03 AM T [facility] eGFR by CKD-EPI >90 >=90 mL/min/1.7 3 m2 01/27/2024 6:03 AM CDT [facility] Blood BLOOD SPECIMEN / Unknown Venipuncture / Unknown 01/27/2024 5:37 AM CDT 01/27/2024 5:43 AM CDT Andrea Zamorano MD LAB - CHEMISTRY CHRISTIAN RAZO Performing Organization Address [facility] Co de Phone Number [facility] [address] [place] [phone] * GLUCOSE - POINT OF CARE (01/27/2024 5:32 AM CDT) Glucose WB/POC 102 70 - 106 mg/dL 01/27/2024 5:37 AM CDT [facility] Specimen Type Cap Fingerstick 2023 5:37 AM CDT [facility] Blood BLOOD SPECIMEN / Unknown 01/27/2024 5:32 AM CDT 01/27/2024 5:37 AM CDT Sherie Beltre MD LAB - POINT OF CARE ORDERABLES Performing Organization Address [facility] de Phone Number [facility] [address] [place] [phone] * GLUCOSE - POINT OF CARE (01/27/2024 12:54 AM CDT) Glucose WB/POC 95 70 - 106 mg/dL 01/27/2024 1:17 AM CDT [facility] Specimen Type Cap Fingerstick 2023 1:17 AM CDT [facility] Blood BLOOD SPECIMEN / Unknown 01/27/2024 12:54 AM CDT 01/27/2024 1:17 AM CDT Sherie Beltre MD LAB - POINT OF CARE ORDERABLES Performing Organization Address [facility] Co de Phone Number [facility] [address] [place] [address] * GLUCOSE - POINT OF CARE (01/26/2024 8:46 PM CDT) Glucose WB/POC 90 70 - 106 mg/dL 01/26/2024 8:48 PM CDT [facility] Specimen Type Cap Fingerstick 2023 8:48 PM CDT [facility] Blood BLOOD SPECIMEN / Unknown 01/26/2024 8:46 PM CDT 01/26/2024 8:48 PM CDT Sherie Beltre MD LAB - POINT OF CARE ORDERABLES Performing Organization Address [facility] Co de Phone Number [facility] [address] [place] [address] * GLUCOSE - POINT OF CARE (01/26/2024 4:03 PM CDT) Glucose WB/POC 101 70 - 106 mg/dL 01/26/2024 4:07 PM CDT [facility] Specimen Type Cap Fingerstick 2023 4:07 PM CDT [facility] Blood BLOOD SPECIMEN / Unknown 01/26/2024 4:03 PM CDT 01/26/2024 4:07 PM CDT Sherie Beltre MD LAB - POINT OF CARE ORDERABLES Performing Organization Address [facility] Co de Phone Number [facility] [address] [place] [address] * XR ABDOMEN KUB (01/26/2024 3:06 PM [...] POINT OF CARE (01/26/2024 11:47 AM CDT) Pathologist [facility] Glucose WB/POC 108(H) 70 - 106 mg/dL 01/26/2024 11:49 AM CDT [facility] Specimen Type Cap Fingerstick 2023 11:49 AM CDT [facility] Blood BLOOD SPECIMEN / Unknown 01/26/2024 11:47 AM CDT 01/26/2024 11:49 AM CDT Sherie Beltre MD LAB - POINT OF CARE ORDERABLES [facility] [address] [place] [address] * GLUCOSE - POINT OF CARE (01/26/2024 7:41 AM CDT) Glucose WB/POC 103 70 - 106 mg/dL 01/26/2024 7:45 AM CDT [facility] Specimen Type Cap Fingerstick 2023 7:45 AM CDT [facility] Blood BLOOD SPECIMEN / Unknown 01/26/2024 7:41 AM CDT 01/26/2024 7:45 AM CDT Sherie Beltre MD LAB - POINT OF CARE ORDERABLES Performing Organization Address [facility] Co de Phone Number [facility] [address] [place] [address] * GLUCOSE - POINT OF CARE (01/26/2024 4:21 AM CDT) Glucose WB/POC 106 70 - 106 mg/dL 01/26/2024 4:28 AM CDT [facility] Specimen Type Cap Fingerstick 2023 4:28 AM CDT [facility] Blood BLOOD SPECIMEN / Unknown 01/26/2024 4:21 AM CDT 01/26/2024 4:28 AM CDT Sherie Beltre MD LAB - POINT OF CARE ORDERABLES Performing Organization Address [facility] de Phone Number [facility] [address] [place] [address] * PHOSPHORUS BLOOD (01/26/2024 4:13 AM CDT) Phosphorus 4.2 2.3 - 4.7 mg/dL 01/26/2024 4:40 AM CDT [facility] Blood BLOOD SPECIMEN / Unknown Venipuncture / Unknown 01/26/2024 4:13 AM CDT 01/26/2024 4:20 AM CDT Andrea Zamorano MD LAB - CHEMISTRY [facility]ZO Performing Organization Address [facility] Co de Phone Number [facility] [address] [place] [id number] * MAGNESIUM BLOOD (01/26/2024 4:13 AM CDT) Magnesium 1.7 1.6 - 2.6 mg/dL 01/26/2024 4:40 AM CDT [facility] Blood BLOOD SPECIMEN / Unknown Venipuncture / Unknown 01/26/2024 4:13 AM CDT 01/26/2024 4:20 AM CDT Andrea Zamorano MD LAB - CHEMISTRY [facility] RA[facility] Organization Address City/State/ZIP Co de Phone Number [facility] [address] [place] [address] * (ABNORMAL) CBC W AUTO DIFFERENTIAL (01/26/2024 4:13 AM CDT) WBC 11.7(H) 4.0 - 10.7 x10E9/L 01/26/2024 4:27 AM CDT [facility] RBC Count 3.77(L) 4.30 - 5.80 x10E12/L 01/26/2024 4:27 AM CDT [facility] Hemoglobin 11.1(L) 13.3 - 17.5 g/dL 01/26/2024 4:27 AM CDT [facility] Hematocrit 34.1(L) 38.7 - 51.1 % 01/26/2024 4:27 AM CDT [facility] MCV 90.5 80.0 - 98.0 fL 01/26/2024 4:27 AM CDT [facility] MCH 29.4 26.7 - 33.6 pg 01/26/2024 4:27 AM CDT [facility] MCHC 32.6 31.7 - 36.3 g/dL 01/26/2024 4:27 AM CDT [facility] RDW-CV 13.7 11.3 - 14.8 % 01/26/2024 4:27 AM CDT [facility] Platelet Count 262 150 - 420 x10E9/L 01/26/2024 4:27 AM CDT [facility] MPV 9.6 7.8 - 11.4 fL 01/26/2024 4:27 AM CDT [facility] Neutrophil % 70.3 41.0 - 74.0 % 01/26/2024 4:27 AM CDT [facility] Lymphocyte % 17.4 17.0 - 47.0 % 01/26/2024 4:27 AM CDT [facility] Monocyte % 8.1 3.0 - 11.0 % 01/26/2024 4:27 AM CDT [facility] Eosinophil % 3.5 0.0 - 7.0 % 01/26/2024 4:27 AM CDT [facility] Basophil % 0.3 0.0 - 1.6 % 01/26/2024 4:27 AM CDT [facility] Immature Granulocytes % 0.4 0.0 - 1.0 % 01/26/2024 4:27 AM CDT [facility] Neutrophil Absolute 8.21(H) 1.60 - 7.50 x10E9/L 01/26/2024 4:27 AM CDT [facility] Lymphocyte Absolute 2.03 1.00 - 4.40 x10E9/L 01/26/2024 4:27 AM CDT [facility] Monocyte Absolute 0.94 0.15 - 1.00 x10E9/L 01/26/2024 4:27 AM CDT [facility] Eosinophil Absolute 0.41 0.00 - 0.60 x10E9/L 01/26/2024 4:27 AM CDT [facility] Basophil Absolute 0.03 0.00 - 0.13 x10E9/L 01/26/2024 4:27 AM CDT [facility] Blood BLOOD SPECIMEN / Unknown Venipuncture / Unknown 01/26/2024 4:13 AM CDT 01/26/2024 4:20 AM CDT Andrea Zamorano MD LAB - HEMATOLOGY ORD ERABLES [facility] [address] [place] [address] * (ABNORMAL) COMPREHENSIVE METABOLIC PANEL (01/26/2024 4:13 AM CDT) [facility] Glucose 115(H) 70 - 105 mg/dL 01/26/2024 4:40 AM CDT [facility] Sodium 140 136 - 145 mmol/L 01/26/2024 4:40 AM CDT [facility] Potassium 3.6 3.5 - 5.1 mmol/L 01/26/2024 4:40 AM CDT [facility] Chloride 105 98 - 107 mmol/L 01/26/2024 4:40 AM CDT [facility] CO2 27 22 - 29 mmol/L 01/26/2024 4:40 AM CDT [facility] Calcium 8.8 8.4 - 10.4 mg/dL 01/26/2024 4:40 AM CDT [facility] Anion Gap 8 6 - 16 mmol/L 01/26/2024 4:40 AM CDT [facility] BUN 10 7 - 26 mg/dL 01/26/2024 4:40 AM CDT [facility] Creatinine 0.74 0.72 - 1.25 mg/dL 01/26/2024 4:40 AM CDT [facility] Alkaline Phosphatase 75 40 - 150 U/L 01/26/2024 4:40 AM CDT [facility] ALT 10 0 - 55 U/L 01/26/2024 4:40 AM CDT [facility] AST 21 5 - 34 U/L 01/26/2024 4:40 AM CDT [facility] Protein Total 7.2 6.4 - 8.3 gm/dL 01/26/2024 4:40 AM CDT [facility] Albumin 2.4(L) 3.4 - 5.0 gm/dL 01/26/2024 4:40 AM T [facility] Bilirubin Total 0.4 0.2 - 1.2 mg/dL 01/26/2024 4:40 AM T [facility] eGFR by CKD-EPI >90 >=90 mL/min/1.7 3 m2 01/26/2024 4:40 AM T [facility] Blood BLOOD SPECIMEN / Unknown Venipuncture / Unknown 01/26/2024 4:13 AM CDT 01/26/2024 4:20 AM CDT Andrea Zamorano MD LAB - CHEMISTRY CHRISTIAN RAZO [facility] Organization Address City/State/ZIP Co de Phone Number [facility] [address] [place] [address] * (ABNORMAL) GLUCOSE - POINT OF CARE (01/26/2024 1:36 AM CDT) [facility] Glucose WB/POC 110(H) 70 - 106 mg/dL 01/26/2024 1:40 AM CDT [facility] Specimen Type Cap Fingerstick 2023 1:40 AM CDT [facility] Blood BLOOD SPECIMEN / Unknown 01/26/2024 1:36 AM CDT 01/26/2024 1:40 AM CDT Sherie Beltre MD LAB - POINT OF CARE ORDERABLES Performing Organization Address [facility] Co de Phone Number [facility] [address] [place] [phone] * GLUCOSE - POINT OF CARE (01/25/2024 8:41 PM CDT) Glucose WB/POC 91 70 - 106 mg/dL 01/25/2024 8:49 PM CDT [facility] Specimen Type Cap Fingerstick 2023 8:49 PM CDT [facility] Blood BLOOD SPECIMEN / Unknown 01/25/2024 8:41 PM CDT 01/25/2024 8:49 PM CDT Sherie Beltre MD LAB - POINT OF CARE ORDERABLES Performing Organization Address [facility] de Phone Number [facility] [address] [place] [address] * (ABNORMAL) GLUCOSE - POINT OF CARE (01/25/2024 4:09 PM CDT) Glucose WB/POC 160(H) 70 - 106 mg/dL 01/25/2024 4:13 PM CDT [facility] Specimen Type Cap Fingerstick 2023 4:13 PM CDT [facility] Blood BLOOD SPECIMEN / Unknown 01/25/2024 4:09 PM CDT 01/25/2024 4:13 PM CDT Sherie Beltre MD LAB - POINT OF CARE ORDERABLES Performing Organization Address [facility] Co de Phone Number [facility] [address] [place] [address] * (ABNORMAL) GLUCOSE - POINT OF CARE (01/25/2024 11:48 AM CDT) Glucose WB/POC 167(H) 70 - 106 mg/dL 01/25/2024 11:53 AM CDT [facility] Specimen Type Cap Fingerstick 2023 11:53 AM CDT [facility] Blood BLOOD SPECIMEN / Unknown 01/25/2024 11:48 AM CDT 01/25/2024 11:53 AM CDT Sherie Beltre MD LAB - POINT OF CARE ORDERABLES [facility] [address] [place] [address] * XR ABDOMEN KUB (01/25/2024 [...] - 106 mg/dL 01/25/2024 8:26 AM CDT [facility] Specimen Type Cap Fingerstick 2023 8:26 AM CDT [facility] Blood BLOOD SPECIMEN / Unknown 01/25/2024 8:21 AM CDT 01/25/2024 8:26 AM CDT Sherie Beltre MD LAB - POINT OF CARE ORDERABLES Performing Organization Address [facility] Co de Phone Number [facility] [address] [place] [address] * PHOSPHORUS BLOOD (01/25/2024 3:04 AM CDT) Phosphorus 3.1 2.3 - 4.7 mg/dL 01/25/2024 3:39 AM CDT [facility] Blood BLOOD SPECIMEN / Unknown Venipuncture / Unknown 01/25/2024 3:04 AM CDT 01/25/2024 3:06 AM CDT Andrea Zamorano MD LAB - CHEMISTRY [facility] Performing Organization Address City/[facility]/ZIP Co de Phone Number [facility] [address] [place], [place] [id number] * MAGNESIUM BLOOD (01/25/2024 3:04 AM CDT) Magnesium 2.2 1.6 - 2.6 mg/dL 01/25/2024 3:39 AM CDT [facility] Blood BLOOD SPECIMEN / Unknown Venipuncture / Unknown 01/25/2024 3:04 AM CDT 01/25/2024 3:06 AM CDT Andrea Zamorano MD LAB - CHEMISTRY CHRISTIAN RAZO [facility] Organization Address City/State/ZIP Co de Phone Number [facility] [address] [place] [address] * (ABNORMAL) CBC W AUTO DIFFERENTIAL (01/25/2024 3:04 AM CDT) WBC 16.3(H) 4.0 - 10.7 x10E9/L 01/25/2024 3:17 AM CDT [facility] RBC Count 3.73(L) 4.30 - 5.80 [...] - 36.3 g/dL 01/25/2024 3:17 AM CDT [facility] RDW-CV 13.4 11.3 - 14.8 % 01/25/2024 3:17 AM CDT [facility] Platelet Count 348 150 - 420 x10E9/L 01/25/2024 3:17 AM CDT [facility] MPV 9.7 7.8 - 11.4 fL 01/25/2024 3:17 AM CDT [facility] Neutrophil % 71.5 41.0 - 74.0 % 01/25/2024 3:17 AM CDT [facility] Lymphocyte % 19.1 17.0 - 47.0 % 01/25/2024 3:17 AM CDT [facility] Monocyte % 8.2 3.0 - 11.0 % 01/25/2024 3:17 AM CDT [facility] Eosinophil % 0.6 0.0 - 7.0 % 01/25/2024 3:17 AM CDT [facility] Basophil % 0.2 0.0 - 1.6 % 01/25/2024 3:17 AM CDT [facility] Immature Granulocytes % 0.4 0.0 - 1.0 % 01/25/2024 3:17 AM CDT [facility] Neutrophil Absolute 11.65(H) 1.60 - 7.50 x10E9/L 01/25/2024 3:17 AM CDT [facility] Lymphocyte Absolute 3.12 1.00 - 4.40 x10E9/L 01/25/2024 3:17 AM CDT [facility] Monocyte Absolute 1.33(H) 0.15 - 1.00 x10E9/L 01/25/2024 3:17 AM CDT [facility] Eosinophil Absolute 0.10 0.00 - 0.60 x10E9/L 01/25/2024 3:17 AM CDT [facility] Basophil Absolute 0.03 0.00 - 0.13 x10E9/L 01/25/2024 3:17 AM CDT [facility] Blood BLOOD SPECIMEN / Unknown Venipuncture / Unknown 01/25/2024 3:04 AM CDT 01/25/2024 3:06 AM CDT Andrea Zamorano MD LAB - HEMATOLOGY ORD ERABLES [facility] [address] [place] [address] * (ABNORMAL) COMPREHENSIVE METABOLIC PANEL (01/25/2024 3:04 AM CDT) [facility] Glucose 181(H) 70 - 105 mg/dL 01/25/2024 3:41 AM CDT [facility] Sodium 141 136 - 145 mmol/L 01/25/2024 3:41 AM CDT [facility] Potassium 3.2(L) 3.5 - 5.1 mmol/L 01/25/2024 3:41 AM CDT [facility] Chloride 102 98 - 107 mmol/L 01/25/2024 3:41 AM CDT [facility] CO2 26 22 - 29 mmol/L 01/25/2024 3:41 AM CDT [facility] Calcium 8.6 8.4 - 10.4 mg/dL 01/25/2024 3:41 AM CDT [facility] Anion Gap 13 6 - 16 mmol/L 01/25/2024 3:41 AM CDT [facility] BUN 12 7 - 26 mg/dL 01/25/2024 3:41 AM CDT [facility] Creatinine 0.78 0.72 - 1.25 mg/dL 01/25/2024 3:41 AM CDT [facility] Alkaline Phosphatase 63 40 - 150 U/L 01/25/2024 3:41 AM CDT [facility] ALT <6 0 - 55 U/L 01/25/2024 3:41 AM CDT [facility] AST 13 5 - 34 U/L 01/25/2024 3:41 AM CDT [facility] Protein Total 7.3 6.4 - 8.3 gm/dL 01/25/2024 3:41 AM CDT [facility] Albumin 2.5(L) 3.4 - 5.0 gm/dL 01/25/2024 3:41 AM CDT [facility] Bilirubin Total 0.4 0.2 - 1.2 mg/dL 01/25/2024 3:41 AM T [facility] eGFR by CKD-EPI >90 >=90 mL/min/1.7 3 m2 01/25/2024 3:41 AM T [facility] Blood BLOOD SPECIMEN / Unknown Venipuncture / Unknown 01/25/2024 3:04 AM CDT 01/25/2024 3:06 AM CDT Andrea Zamorano MD LAB - CHEMISTRY CHRISTIAN RAZO [facility] Organization Address City/State/ZIP Co de Phone Number [facility] [address] [place] [address] * (ABNORMAL) GLUCOSE - POINT OF CARE (01/24/2024 11:22 PM CDT) Glucose WB/POC 167(H) 70 - 106 mg/dL 01/24/2024 11:35 PM CDT [facility] Specimen Type Arterial 01/24/2024 11:35 PM CDT [facility] Blood BLOOD SPECIMEN / Unknown 01/24/2024 11:22 PM CDT 01/24/2024 11:35 PM CDT Sherie Beltre MD LAB - POINT OF CARE ORDERABLES Performing Organization Address [facility] Co de Phone Number [facility] [address] [place] [address] * (ABNORMAL) GLUCOSE - POINT OF CARE (01/24/2024 8:08 PM CDT) [facility] Glucose WB/POC 190(H) 70 - 106 mg/dL 01/24/2024 8:13 PM CDT [facility] Specimen Type Arterial 01/24/2024 8:13 PM CDT [facility] Blood BLOOD SPECIMEN / Unknown 01/24/2024 8:08 PM CDT 01/24/2024 8:13 PM CDT Sherie Beltre MD LAB - POINT OF CARE ORDERABLES Performing Organization Address City/[facility] Co de Phone Number [facility] [address] [place] [address] * XR CHEST 1VW PORTABLE (01/24/2024 5:41 [...] - 106 mg/dL 01/24/2024 8:03 PM CDT [facility] Specimen Type Arterial 01/24/2024 8:03 PM CDT [facility] Blood BLOOD SPECIMEN / Unknown 01/24/2024 4:22 PM CDT 01/24/2024 8:03 PM CDT Sherie Beltre MD LAB - POINT OF CARE ORDERABLES Performing Organization Address City/[facility]/ZIP Co de Phone Number [facility] [address] [place] [address] * MAGNESIUM BLOOD (01/24/2024 2:30 PM CDT) Magnesium 1.6 1.6 - 2.6 mg/dL 01/24/2024 3:05 PM CDT [facility] Blood BLOOD SPECIMEN / Unknown 01/24/2024 2:30 PM CDT 01/24/2024 2:45 PM CDT Manisha Terry MD LAB - SOCIAL SERVICES TECHNICIAN RY ORDERABLES Performing Organization Address [facility]/ZIP Co de Phone Number [facility] [id number] [place] [address] * (ABNORMAL) RENAL FUNCTION PANEL (01/24/2024 2:30 PM CDT) Glucose 195(H) 70 - 105 mg/dL 01/24/2024 3:05 PM CDT [facility] Sodium 140 136 - 145 mmol/L 01/24/2024 3:05 PM CDT [facility] Potassium 3.2(L) 3.5 - 5.1 mmol/L 01/24/2024 3:05 PM CDT [facility] Chloride 102 98 - 107 mmol/L 01/24/2024 3:05 PM CDT [facility] CO2 25 22 - 29 mmol/L 01/24/2024 3:05 PM CDT [facility] Calcium 8.5 8.4 - 10.4 mg/dL 01/24/2024 3:05 PM CDT [facility] Anion Gap 13 6 - 16 mmol/L 01/24/2024 3:05 PM CDT [facility] BUN 11 7 - 26 mg/dL 01/24/2024 3:05 PM CDT [facility] Creatinine 0.88 0.72 - 1.25 mg/dL 01/24/2024 3:05 PM CDT [facility] Albumin 2.5(L) 3.4 - 5.0 gm/dL 01/24/2024 3:05 PM CDT [facility] Phosphorus 3.4 2.3 - 4.7 mg/dL 01/24/2024 3:05 PM CDT [facility] eGFR by CKD-EPI >90 >=90 mL/min/1.7 3 m2 01/24/2024 3:05 PM CDT [facility] Blood BLOOD SPECIMEN / Unknown 01/24/2024 2:30 PM CDT 01/24/2024 2:45 PM CDT Manisha Terry MD LAB - SOCIAL SERVICES TECHNICIAN RY ORDERABLES [facility] [address] [place] [address] * ECHO COMPLETE W CONTRAST W BUBBLE STUDY (01/24/2024 1:16 PM CDT) [facility] BSA 2.76 m2 [facility] PACS Anatomical Region Laterality Modality Ultrasound [...] POINT OF CARE (01/24/2024 12:14 PM CDT) [facility] Glucose WB/POC 182(H) 70 - 106 mg/dL 01/24/2024 12:18 PM CDT [facility] Specimen Type Arterial 01/24/2024 12:18 PM CDT [facility] Blood BLOOD SPECIMEN / Unknown 01/24/2024 12:14 PM CDT 01/24/2024 12:18 PM CDT Sherie Beltre MD LAB - POINT OF CARE ORDERABLES [facility] [address] [place] [address] * CULTURE BLOOD (01/24/2024 10:23 AM CDT) [facility] Culture No growth day 5 VALERIA 01/29/2024 1:30 PM CDT [facility] Blood PERIPHERAL BLOOD / Unknown Venipuncture / Unknown 01/24/2024 10:23 AM CDT 01/24/2024 10:30 AM CDT Manisha Terry MD LAB - MICROBI OLOGY ORDERABLES [facility] MICROBIOLOGY [address] [place] [address], [facility] [phone] * CULTURE BLOOD (01/24/2024 10:08 AM CDT) Culture No growth day 5 VALERIA 01/29/2024 1:30 PM CDT [facility] MICROBIOLOGY Blood PERIPHERAL BLOOD / Unknown Venipuncture / Unknown 01/24/2024 10:08 AM CDT 01/24/2024 10:29 AM CDT Manisha Terry MD LAB - [facility] OLOGY ORDERABLES Performing Organization Address City/[facility]/ZIP Co de Phone Number [facility] MICROBIOLOGY [address] [place] [address], [facility] [phone] * (ABNORMAL) GLUCOSE - POINT OF CARE (01/24/2024 8:25 AM CDT) Glucose WB/POC 159(H) 70 - 106 mg/dL 01/24/2024 12:18 PM CDT [facility] Specimen Type Arterial 01/24/2024 12:18 PM CDT [facility] Blood BLOOD SPECIMEN / Unknown 01/24/2024 8:25 AM CDT 01/24/2024 12:18 PM CDT Sherie Beltre MD LAB - POINT OF CARE ORDERABLES [facility] [address] [place] [address] * (ABNORMAL) GLUCOSE - POINT OF CARE (01/24/2024 4:43 AM CDT) Glucose WB/POC 177(H) 70 - 106 mg/dL 01/24/2024 4:47 AM CDT [facility] Specimen Type Arterial 01/24/2024 4:47 AM CDT [facility] Blood BLOOD SPECIMEN / Unknown 01/24/2024 4:43 AM CDT 01/24/2024 4:47 AM CDT Sherie Beltre MD LAB - POINT OF CARE ORDERABLES Performing Organization Address [facility] de Phone Number [facility] [address] [place] [address] * PHOSPHORUS BLOOD (01/24/2024 4:43 AM CDT) Phosphorus 2.9 2.3 - 4.7 mg/dL 01/24/2024 5:21 AM CDT [facility] Blood BLOOD SPECIMEN / Unknown Venipuncture / Unknown 01/24/2024 4:43 AM CDT 01/24/2024 4:54 AM CDT Andrea Zamorano MD LAB - CHEMISTRY CHRISTIAN RAZO Performing Organization Address [facility] de Phone Number [facility] [address] [place] [address] * (ABNORMAL) MAGNESIUM BLOOD (01/24/2024 4:43 AM CDT) Magnesium 1.3(L) 1.6 - 2.6 mg/dL 01/24/2024 5:21 AM CDT [facility] Blood BLOOD SPECIMEN / Unknown Venipuncture / Unknown 01/24/2024 4:43 AM CDT 01/24/2024 4:54 AM CDT Andrea Zamoarno MD LAB - CHEMISTRY CHRISTIAN RAZO Performing Organization Address [facility] de Phone Number [facility] [address] [place] [address] * (ABNORMAL) CBC W AUTO DIFFERENTIAL (01/24/2024 4:43 AM CDT) WBC 14.6(H) 4.0 - 10.7 x10E9/L 01/24/2024 5:03 AM CDT [facility] RBC Count 4.01(L) 4.30 - 5.80 [...] - 1.00 x10E9/L 01/24/2024 5:03 AM CDT [facility] Eosinophil Absolute 0.05 0.00 - 0.60 x10E9/L 01/24/2024 5:03 AM CDT [facility] Basophil Absolute 0.02 0.00 - 0.13 x10E9/L 01/24/2024 5:03 AM CDT [facility] Blood BLOOD SPECIMEN / Unknown Venipuncture / Unknown 01/24/2024 4:43 AM CDT 01/24/2024 4:54 AM CDT Andrea Zamorano MD LAB - HEMATOLOGY ORD ERABLES [facility] [address] [place] [address] * (ABNORMAL) COMPREHENSIVE METABOLIC PANEL (01/24/2024 4:43 AM CDT) Glucose 178(H) 70 - 105 mg/dL 01/24/2024 5:21 AM CDT [facility] Sodium 141 136 - 145 mmol/L 01/24/2024 5:21 AM CDT [facility] Potassium 3.1(L) 3.5 - 5.1 mmol/L 01/24/2024 5:21 AM CDT [facility] Chloride 105 98 - 107 mmol/L 01/24/2024 5:21 AM CDT [facility] CO2 26 22 - 29 mmol/L 01/24/2024 5:21 AM CDT [facility] Calcium 7.9(L) 8.4 - 10.4 mg/dL 01/24/2024 5:21 AM CDT [facility] Anion Gap 10 6 - 16 mmol/L 01/24/2024 5:21 AM CDT [facility] BUN 9 7 - 26 mg/dL 01/24/2024 5:21 AM CDT [facility] Creatinine 0.78 0.72 - 1.25 mg/dL 01/24/2024 5:21 AM CDT [facility] Alkaline Phosphatase 62 40 - 150 U/L 01/24/2024 5:21 AM CDT [facility] ALT 8 0 - 55 U/L 01/24/2024 5:21 AM CDT [facility] AST 17 5 - 34 U/L 01/24/2024 5:21 AM CDT [facility] Protein Total 7.1 6.4 - 8.3 gm/dL 01/24/2024 5:21 AM CDT [facility] Albumin 2.5(L) 3.4 - 5.0 gm/dL 01/24/2024 5:21 AM CDT [facility] Bilirubin Total 0.7 0.2 - 1.2 mg/dL 01/24/2024 5:21 AM CDT [facility] eGFR by CKD-EPI >90 >=90 mL/min/1.7 3 m2 01/24/2024 5:21 AM CDT [facility] Blood BLOOD SPECIMEN / Unknown Venipuncture / Unknown 01/24/2024 4:43 AM CDT 01/24/2024 4:54 AM CDT Andrea Zamorano MD LAB - CHEMISTRY CHRISTIAN RAZO [facility] [address] [place] [phone] * CULTURE SPUTUM+GRAM STAIN (01/24/2024 4:43 AM CDT) Culture Moderate normal oropharyngeal tae VALERIA 01/25/2024 11:58 PM CDT [facility] MICROBIOLOGY Gram Stain >= 25 per low power field Polymorphonuclear cells 01/25/2024 11:58 PM CDT [facility] MICROBIOLOG[facility] Gram Stain <10 per low power field Squamous epithelial cells 01/25/2024 11:58 PM CDT [facility] MICROBIOLOGY Gram Stain Moderate Gram-positive cocci 01/25/2024 11:58 PM CDT [facility] MICROBIOLOGY Microbiology SPUTUM / Unknown Collection / Unknown 01/24/2024 4:43 AM CDT 01/24/2024 4:52 AM CDT Andrea Zamorano MD LAB - MICROBIOLOGY O RDERABLES [facility] MICROBIOLOGY [address] [place] [id number] [place] [address] * (ABNORMAL) LIPID PROFILE (01/24/2024 4:43 AM CDT) Cholesterol 229(H) <200 mg/dL 01/24/2024 5:21 AM CDT [facility] Triglycerides 179(H) <150 mg/dL 01/24/2024 5:21 AM CDT [facility] HDL Cholesterol 32(L) >40 mg/dL 5:21 AM CDT [facility] LDL Calculated 161(H) <130 mg/dL 01/24/2024 5:21 AM CDT [facility] VLDL Calculated 36(H) <=30 mg/dL 5:21 AM CDT [facility] Chol HDL Ratio 7.2(H) <4.5 01/24/2024 5:21 AM CDT [facility] LDL/HDL Ratio 5.0(H) <5.0 01/24/2024 5:21 AM CDT [facility] Blood BLOOD SPECIMEN / Unknown Venipuncture / Unknown 01/24/2024 4:43 AM CDT 01/24/2024 4:54 AM CDT Gladys Mcgee MD LAB - CHEMISTRY [facility] Organization Address City/State/ZIP Co de Phone Number [facility] [address] [place] [address] * CT HEAD NON CONTRAST [...] - 106 mg/dL 01/24/2024 4:35 AM CDT [facility] Specimen Type Arterial 01/24/2024 4:35 AM CDT [facility] Blood BLOOD SPECIMEN / Unknown 01/23/2024 11:52 PM CDT 01/24/2024 4:35 AM CDT Sherie Beltre MD LAB - POINT OF CARE ORDERABLES [facility] [address] [place] [address] * XR CHEST 1VW PORTABLE (01/23/2024 11:20 [...] POINT OF CARE ORDERABLES Performing Organization Address [facility] Co de Phone Number [facility] [address] [place] [address] * (ABNORMAL) DIFFERENTIAL MANUAL (01/23/2024 8:04 PM CDT) Neutrophil % 78(H) 41 - 74 % 01/23/2024 9:14 PM CDT [facility] Lymphocyte % 20 17 - 47 % 01/23/2024 9:14 PM CDT [facility] Monocyte % 2(L) 3 - 11 % 01/23/2024 9:14 PM CDT [facility] Neutrophil Absolute 18.17(H) 1.60 - 7.50 x10E9/L 01/23/2024 9:14 PM CDT [facility] Lymphocyte Absolute 4.66(H) 1.00 - 4.40 x10E9/L 01/23/2024 9:14 PM CDT [facility] Monocyte Absolute 0.47 0.15 - 1.00 x10E9/L 01/23/2024 9:14 PM CDT [facility] RBC Morphology NORMAL 01/23/2024 9:14 PM CDT [facility] Platelet Morphology NORMAL 01/23/2024 9:14 PM CDT [facility] Blood BLOOD SPECIMEN / Unknown Venipuncture / Unknown 01/23/2024 8:04 PM CDT 01/23/2024 8:23 PM CDT Andrea Zamorano MD LAB - HEMATOLOGY ORD ERABLES Performing Organization Address City/[facility]/ZIP Co de Phone Number [facility] [address] [place] [address] * (ABNORMAL) MAGNESIUM BLOOD (01/23/2024 8:04 PM CDT) Magnesium 1.4(L) 1.6 - 2.6 mg/dL 01/23/2024 8:43 PM CDT [facility] Blood BLOOD SPECIMEN / Unknown Venipuncture / Unknown 01/23/2024 8:04 PM CDT 01/23/2024 8:23 PM CDT Andrea Zamoraon MD LAB - CHEMISTRY ORDE RABMILADY Performing Organization Address [facility]/ZIP Co de Phone Number [facility] [address] [place] [phone] * (ABNORMAL) CBC W AUTO DIFFERENTIAL (01/23/2024 8:04 PM CDT) [facility] WBC 23.3(H) 4.0 - 10.7 x10E9/L 01/23/2024 9:14 PM CDT [facility] RBC Count 4.55 4.30 - 5.80 x10E12/L 01/23/2024 9:14 PM CDT [facility] Hemoglobin 13.8 13.3 - 17.5 g/dL 01/23/2024 9:14 PM CDT [facility] Hematocrit 41.0 38.7 - 51.1 % 01/23/2024 9:14 PM CDT [facility] MCV 90.1 80.0 - 98.0 fL 01/23/2024 9:14 PM CDT [facility] MCH 30.3 26.7 - 33.6 pg 01/23/2024 9:14 PM CDT [facility] MCHC 33.7 31.7 - 36.3 g/dL 01/23/2024 9:14 PM CDT [facility] RDW-CV 13.6 11.3 - 14.8 % 01/23/2024 9:14 PM CDT [facility] Platelet Count 320 150 - 420 x10E9/L 01/23/2024 9:14 PM CDT [facility] MPV 9.6 7.8 - 11.4 fL 01/23/2024 9:14 PM CDT [facility] Blood BLOOD SPECIMEN / Unknown Venipuncture / Unknown 01/23/2024 8:04 PM CDT 01/23/2024 8:23 PM CDT Andrea Zamorano MD LAB - HEMATOLOGY ORD ERAHATTIE [facility] [address] [place] [address] * (ABNORMAL) RENAL FUNCTION PANEL (01/23/2024 8:04 PM CDT) Glucose 235(H) 70 - 105 mg/dL 01/23/2024 8:43 PM CDT [facility] Sodium 141 136 - 145 mmol/L 01/23/2024 8:43 PM CDT [facility] Potassium 3.2(L) 3.5 - 5.1 mmol/L 01/23/2024 8:43 PM CDT [facility] Chloride 103 98 - 107 mmol/L 01/23/2024 8:43 PM CDT [facility] CO2 24 22 - 29 mmol/L 01/23/2024 8:43 PM CDT [facility] Calcium 8.5 8.4 - 10.4 mg/dL 01/23/2024 8:43 PM CDT [facility] Anion Gap 14 6 - 16 mmol/L 01/23/2024 8:43 PM CDT [facility] BUN 9 7 - 26 mg/dL 01/23/2024 8:43 PM CDT [facility] Creatinine 0.88 0.72 - 1.25 mg/dL 01/23/2024 8:43 PM CDT [facility] Albumin 2.9(L) 3.4 - 5.0 gm/dL 01/23/2024 8:43 PM CDT [facility] Phosphorus 4.0 2.3 - 4.7 mg/dL 01/23/2024 8:43 PM CDT [facility] eGFR by CKD-EPI >90 >=90 mL/min/1.7 3 m2 01/23/2024 8:43 PM CDT [facility] Blood BLOOD SPECIMEN / Unknown Venipuncture / Unknown 01/23/2024 8:04 PM CDT 01/23/2024 8:23 PM CDT Andrea Zamorano MD LAB - CHEMISTRY CHRISTIAN RAZO Performing Organization Address [facility]/ZIP Co de Phone Number [facility] [address] [place] [address] * TROPONIN-I HIGH SENSITIVE BASELINE + 1HR (01/23/2024 8:04 PM CDT) [facility] Troponin I High Sensitive 19 <=35 ng/L 01/23/2024 8:48 PM CDT [facility] Blood BLOOD SPECIMEN / Unknown Venipuncture / Unknown 01/23/2024 8:04 PM CDT 01/23/2024 8:23 PM CDT Gladys Mcgee MD LAB - CHEMISTRY CHRISTIAN RAZO Performing Organization Address City/[facility]/ZIP Co de Phone Number [facility] [address] [place] [address] * MRSA DNA PCR (01/23/2024 8:03 PM CDT) [facility] MRSA DNA by PCR Not detected Not detected 01/24/2024 4:53 AM CDT [facility] MICROBIOLOGY Microbiology SPECIMEN FROM NASAL FOSSAE / Unknown Collection / Unknown 01/23/2024 8:03 PM CDT 01/23/2024 8:22 PM CDT Narrative [facility] MICROBIOLOGY - 01/24/2024 4:53 AM CDT Methicillin-resistant Staphylococcus aureus (MRSA) DNA is not detected (presumed not colonized with MRSA). Andrea Zamorano MD LAB - MICROBIOLOGY O RDERABLES Performing Organization Address [facility] Co de Phone Number [facility] MICROBIOLOGY [address] [place] [address], [facility] [phone] * XR CHEST 1VW PORTABLE (01/23/2024 7:14 [...] johan. A gastric tube terminates in the [id number], well below the diaphragm. The cardia mediastinal [...] johan. A gastric tube terminates in the [id number], well below the diaphragm. The cardia mediastinalsilhouette is grossly unremarkable. The lungs are grossly clear. No pneumothorax or pleural effusion is seen. No acute osseous abnormalities are seen. > Interpreting Provider: Katie Rodriguez MD on 01/23/2024 7:38 PM Andrea Zamorano MD DIAGNOSTIC IMAGING O RDERABLES * (ABNORMAL) GLUCOSE - POINT OF CARE (01/23/2024 5:24 PM CDT) [facility] Glucose WB/POC 276(H) 70 - 106 mg/dL 01/23/2024 5:51 PM CDT [facility] Specimen Type Cap Fingerstick 2023 5:51 PM CDT [facility] Blood BLOOD SPECIMEN / Unknown 01/23/2024 5:24 PM CDT 01/23/2024 5:51 PM CDT Sherie Beltre MD LAB - POINT OF CARE ORDERABLES [facility] [address] [place] [address] * (ABNORMAL) BLOOD GASES ARTERIAL (01/23/2024 5:14 PM CDT) pH Arterial 7.39 7.35 - 7.45 pH [...] BLOOD GASES OR DERABLES [facility] [address] [phone] * IR CAROTID CEREBRAL ANGIOGRAM (01/23/2024 4:55 [...] cerebral right vertebral artery 2. Angioplasty with [place] 2.5 mm X 15 mm balloon 4. [...] the lesion. ?? A 2.5 x15 mm [place] angioplasty balloon was advanced over the exchange [...] removed. ??A run performed from the ?? INSTALLER HELPER demostrated a normal femoral artery bifurcation. ??The [...] and VAISHNAVI with large PCOM filling the PUBLIC AREA SUPERVISOR. The left vertebral artery angiogram shows a [...] and tip is not included within the [id number]. Procedure Note Alexei Cruz DO - 01/24/2024 [...] and tip is not included within the [id number]. Impression: 1. ET tube terminates 4.2 cm above the johan. 2. Stable mild cardiomegaly. No terrance congestive failure. > Interpreting Provider: Alexei Cruz DO on 01/23/2024 12:00 PM Gladys Mcgee MD DIAGNOSTIC IMAGING O RDERABLES * TROPONIN-I HIGH SENSITIVE REFLEX 1HOUR (01/23/2024 11:52 AM CDT) [facility] Troponin I High Sensitive 26 <=35 ng/L 01/23/2024 12:26 PM CDT [facility] Delta Troponin I HS 2 <6 ng/L 01/23/2024 12:26 PM CDT [facility] Blood BLOOD SPECIMEN / Unknown Venipuncture / Unknown 01/23/2024 11:52 AM CDT 01/23/2024 11:59 AM CDT Gladys Mcgee MD LAB - CHEMISTRY CHRISTIAN RAZO [facility] Organization Address City/State/ZIP Co de Phone Number [facility] [address] [place] [address] * URINE DRUG SCREEN IMMUNOASSAY (01/23/2024 11:46 AM CDT) [facility] Amphetamines Screen Urine Not detected Not detected 01/23/2024 12:12 PM CDT [facility] Barbiturates Screen Urine Not detected Not detected 01/23/2024 12:12 PM CDT [facility] Benzodiazepines Screen Urine Not detected Not detected 01/23/2024 12:12 PM CDT [facility] Cannabinoids Screen Urine Not detected Not detected 01/23/2024 12:12 PM CDT [facility] Cocaine Screen Urine Not detected Not detected 01/23/2024 12:12 PM CDT [facility] Fentanyl Urine Not detected Not detected 01/23/2024 12:12 PM CDT [facility] Methadone Screen Urine Not detected Not detected 01/23/2024 12:12 PM CDT [facility] Opiate Screen Urine Not detected Not detected 01/23/2024 12:12 PM CDT [facility] Phencyclidine Screen Urine Not detected Not detected 01/23/2024 12:12 PM CDT [facility] Urine URINE / Unknown Collection / Unknown 01/23/2024 11:46 AM CDT 01/23/2024 11:48 AM CDT Narrative [facility] - 01/23/2024 12:12 PM CDT This [...] MD LAB - URINE CHEMISTR Y ORDERABLES [facility] [address] [place] [address] * Intubation (01/23/2024 11:39 AM CDT) Narrative Gladys Mcgee MD - 01/23/2024 11:39 AM CDT Gladys Mcgee MD ? 01/24/2024 ??8:45 PM Intubation Date/Time: 01/23/2024 11:39 AM Performed by: Gladys Mcgee MD Authorized by: Gladys Mcgee MD ?? Consent: ??Consent obtained: ??Emergent situation [place] protocol: ??Relevant documents present and verified: yes [...] Blackwood MD on 01/23/2024 11:27 AM Gladys Mcgee MD DIAGNOSTIC IMAGING O RDERABLES * CT [...] in both superior cerebellar arteries. The left DEHAIRING MACHINE TENDER has supply essentially. Procedure Note [address] [...] in both superior cerebellar arteries. The left DEHAIRING MACHINE TENDER has supply essentially. IMPRESSION: Short segment severe, [...] 24 11:13 AM CDT [facility] Briar Wood Sorter ID Kirill Kemp [email or web address] 01/23/2024 11:13 AM CDT [facility] Blood, arterial ARTERIAL BLOOD SPECIMEN / Unknown 01/23/2024 10:53 AM CDT 01/23/2024 10:53 AM CDT Gladys Mcgee MD LAB - BLOOD GASES OR DERABLES [facility] [address] [phone] * EKG 12-LEAD (01/23/2024 10:46 AM CDT) [facility] Ventricular Rate 96 BPM [facility] Atrial Rate 96 BPM [facility] P-R Interval 146 ms [facility] QRS Duration ms 78 ms [facility] Q-T Interval ms 360 ms [facility] QTC Calculation (Bezet) 454 ms [facility] Calculated P Alverda 79 degrees [facility] Calculated R Alverda 76 degrees [facility] Calculated T Alverda -77 degrees [facility] Interpretation EKG Normal [...] Anterior leads Confirmed by JUSTICE PURVIS MD ([id number]) on 01/23/2024 2:35:44 PM [facility] 01/23/2024 10:4 6 AM CDT 01/23/2024 2:35 PM CDT Gladys Mcgee MD ECG ORDERABLES [facility] * INR - POCT (01/23/2024 10:45 AM CDT) [facility] INR 1.1 0.9 - 1.2 01/23/2024 10:56 AM CDT [facility] Blood BLOOD SPECIMEN / Unknown 01/23/2024 10:45 AM CDT 01/23/2024 10:56 AM CDT Gladys Mcgee MD LAB - POINT OF CARE ORDERABLES [facility] [address] [place] [address] * (ABNORMAL) CREATININE - POCT INTERFACED (01/23/2024 10:45 AM CDT) [facility] Creatinine POCT 1.00 0.70 - 1.20 mg/dL 01/23/2024 10:56 AM CDT [facility] eGFR 84(L) >=90 mL/min/1.7 3 m2 01/23/2024 10:56 AM CDT [facility] Blood BLOOD SPECIMEN / Unknown 01/23/2024 10:45 AM CDT 01/23/2024 10:56 AM CDT Gladys Mcgee MD LAB - POINT OF CARE ORDERABLES [facility] [address] [place] [address] * CT BRAIN - Stroke (01/23/2024 10:39 [...] contents are unremarkable. Nasal airway. Procedure Note Alexei Cruz DO - 01/23/2024 PROCEDURE: CT BRAIN STROKE DATE/TIME [...] Glucose 128 mg/dL 01/23/2024 7:28 PM CDT [facility] Blood BLOOD SPECIMEN / Unknown Venipuncture / Unknown 01/23/2024 10:39 AM CDT 01/23/2024 10:42 AM CDT Narrative [facility] - 01/23/2024 7:28 PM CDT HbA1c [...] Gladys Mcgee MD LAB - CHEMISTRY ORDE RABMILADY Performing Organization Address City/[facility]/ZIP Co de Phone Number [facility] [id number] [place] [address] * SLIDE SCAN HEMATOLOGY (01/23/2024 10:39 AM CDT) RBC Morphology RED CELL INDICIES CONFIRMED 01/23/2024 11:33 AM CDT [facility] Blood BLOOD SPECIMEN / Unknown Venipuncture / Unknown 01/23/2024 10:39 AM CDT 01/23/2024 10:42 AM CDT Gladys Mcgee MD LAB - HEMATOLOGY ORD ERABLES Performing Organization Address [facility] Co de Phone Number [facility] [address] [place], [place] [id number] * (ABNORMAL) CK BLOOD (01/23/2024 10:39 AM CDT) Pathologist [facility] CK 1,415(H) 30 - 200 U/L 01/23/2024 11:35 AM CDT [facility] Blood BLOOD SPECIMEN / Unknown Venipuncture / Unknown 01/23/2024 10:39 AM CDT 01/23/2024 10:42 AM CDT Gladys Mcgee MD LAB - CHEMISTRY CHRISTIAN RAZO Performing Organization Address [facility] Co de Phone Number [facility] [address] [place] [address] * ALCOHOL ETHYL BLOOD (01/23/2024 10:39 AM CDT) Pathologist [facility] Ethanol <10.0 <10 mg/dL 01/23/2024 11:09 AM CDT [facility] Ethanol Calculated <0.010 <=0.100 gm/dL 01/23/2024 11:09 AM CDT [facility] Blood BLOOD SPECIMEN / Unknown Venipuncture / Unknown 01/23/2024 10:39 AM CDT 01/23/2024 10:42 AM CDT Narrative [facility] - 01/23/2024 11:09 AM CDT Ethanol [...] - CHEMISTRY CHRISTIAN RAZO Performing Organization Address [facility] Co de Phone Number [facility] [address] [place] [address] * TYPE + SCREEN PANEL (01/23/2024 10:39 AM CDT) Pathologist [facility] ABO Rh O NEG 01/23/2024 11:33 AM CDT [facility] Comment:History checked. Antibody Screen NEG 11:33 AM CDT [facility] Blood Bank BLOOD SPECIMEN / Unknown Venipuncture / Unknown 01/23/2024 10:39 AM CDT 01/23/2024 10:42 AM CDT Gladys Mcgee MD LAB - BLOOD BANK ORD ERABLES Performing Organization Address [facility] Co de Phone Number [facility] [id number] [place] [id number] [phone] * TROPONIN-I HIGH SENSITIVE BASELINE + 1HR (01/23/2024 10:39 AM CDT) Troponin I High Sensitive 24 <=35 ng/L 01/23/2024 11:13 AM CDT [facility] Blood BLOOD SPECIMEN / Unknown Venipuncture / Unknown 01/23/2024 10:39 AM CDT 01/23/2024 10:42 AM CDT Gladys Mcgee MD LAB - CHEMISTRY ORDE RABLES Performing Organization Address [facility] Co de Phone Number [facility] [address] [place] [id number] * PTT (01/23/2024 10:39 AM CDT) Pathologist [facility] PTT 28.3 23.0 - 38.4 sec 01/23/2024 10:55 AM CDT [facility] Blood BLOOD SPECIMEN / Unknown Venipuncture / Unknown 01/23/2024 10:39 AM CDT 01/23/2024 10:42 AM CDT Narrative [facility] - 01/23/2024 10:55 AM CDT Heparin Therapeutic Range for PTT: ??69.0 - 110.0 seconds. Gladys Mcgee MD LAB - COAGULATION OR DERABLES Performing Organization Address [facility] Co de Phone Number [facility] [address] [place] [address] * PT-INR (01/23/2024 10:39 AM CDT) PT 13.3 12.1 - 14.8 sec 01/23/2024 10:55 AM CDT [facility] INR 1.0 0.9 - 1.1 01/23/2024 10:55 AM CDT [facility] Blood BLOOD SPECIMEN / Unknown Venipuncture / Unknown 01/23/2024 10:39 AM CDT 01/23/2024 10:42 AM CDT Narrative [facility] - 01/23/2024 10:55 AM CDT Conventional Warfarin Anticoagulant Therapy: INR Reference Range: ??2.0-3.0 Intensive Warfarin Anticoagulant Therapy: INR Reference Range: ? 2.5-3.5 Gladys Mcgee MD LAB - COAGULATION OR DERABLES [facility] [address] [place] [address] * (ABNORMAL) COMPREHENSIVE METABOLIC PANEL (01/23/2024 10:39 AM CDT) [facility] Glucose 168(H) 70 - 105 mg/dL 01/23/2024 11:09 AM CDT [facility] Sodium 142 136 - 145 mmol/L 01/23/2024 11:09 AM CDT [facility] Potassium 3.6 3.5 - 5.1 mmol/L 01/23/2024 11:09 AM CDT [facility] Chloride 101 98 - 107 mmol/L 01/23/2024 11:09 AM CDT [facility] CO2 24 22 - 29 mmol/L 01/23/2024 11:09 AM CDT [facility] Calcium 9.0 8.4 - 10.4 mg/dL 01/23/2024 11:[address] [facility] Anion Gap 17(H) 6 - 16 mmol/L 01/23/2024 11:09 AM CDT [facility] BUN 10 7 - 26 mg/dL 01/23/2024 11:09 AM CDT [facility] Creatinine 0.97 0.72 - 1.25 mg/dL 01/23/2024 11:09 AM [facility] Alkaline Phosphatase 74 40 - 150 U/L 01/23/2024 11:09 AM CDT [facility] ALT 10 0 - 55 U/L 01/23/2024 11:09 AM CDT [facility] AST 27 5 - 34 U/L 01/23/2024 11:09 AM CDT [facility] Protein Total 9.0(H) 6.4 - 8.3 gm/dL 01/23/2024 11:09 AM CDT [facility] Albumin 3.3(L) 3.4 - 5.0 gm/dL 01/23/2024 11:09 AM CDT [facility] Bilirubin Total 0.6 0.2 - 1.2 mg/dL 01/23/2024 11:09 AM CDT [facility] eGFR by CKD-EPI 87(L) >=90 mL/min/1.7 3 m2 01/23/2024 11:09 AM CDT [facility] Blood BLOOD SPECIMEN / Unknown Venipuncture / Unknown 01/23/2024 10:39 AM CDT 01/23/2024 10:42 AM CDT Gladys Mcgee MD LAB - CHEMISTRY CHRISTIAN [facility] Organization Address City/State/ZIP Co de Phone Number [facility] [address] [place] [address] * (ABNORMAL) CBC W AUTO DIFFERENTIAL (01/23/2024 10:39 AM CDT) WBC 22.5(H) 4.0 - 10.7 x10E9/L 01/23/2024 11:33 AM CDT [facility] RBC Count 4.85 4.30 - 5.80 x10E12/L 01/23/2024 11:33 AM CDT [facility] Hemoglobin 14.5 13.3 - 17.5 g/dL 01/23/2024 11:33 AM CDT [facility] Hematocrit 43.3 38.7 - 51.1 % 01/23/2024 11:33 AM CDT [facility] MCV 89.3 80.0 - 98.0 fL 01/23/2024 11:33 AM CDT [facility] MCH 29.9 26.7 - 33.6 pg 01/23/2024 11:33 AM CDT [facility] MCHC 33.5 31.7 - 36.3 g/dL 01/23/2024 11:33 AM CDT [facility] RDW-CV 13.3 11.3 - 14.8 % 01/23/2024 11:33 AM CDT [facility] Platelet Count 351 150 - 420 x10E9/L 01/23/2024 11:33 AM CDT [facility] MPV 9.4 7.8 - 11.4 fL 01/23/2024 11:33 AM CDT [facility] Neutrophil % 89.9(H) 41.0 - 74.0 % 01/23/2024 11:33 AM CDT [facility] Lymphocyte % 3.9(L) 17.0 - 47.0 % 01/23/2024 11:33 AM CDT [facility] Monocyte % 5.5 3.0 - 11.0 % 01/23/2024 11:33 AM CDT [facility] Eosinophil % 0.0 0.0 - 7.0 % 01/23/2024 11:33 AM CDT [facility] Basophil % 0.1 0.0 - 1.6 % 01/23/2024 11:33 AM CDT [facility] Immature Granulocytes % 0.6 0.0 - 1.0 % 01/23/2024 11:33 AM CDT [facility] Neutrophil Absolute 20.21(H) 1.60 - 7.50 x10E9/L 01/23/2024 11:33 AM CDT [facility] Lymphocyte Absolute 0.88(L) 1.00 - 4.40 x10E9/L 01/23/2024 11:33 AM CDT [facility] Monocyte Absolute 1.24(H) 0.15 - 1.00 x10E9/L 01/23/2024 11:33 AM CDT [facility] Eosinophil Absolute 0.00 0.00 - 0.60 x10E9/L 01/23/2024 11:33 AM CDT [facility] Basophil Absolute 0.03 0.00 - 0.13 x10E9/L 01/23/2024 11:33 AM CDT [facility] Blood BLOOD SPECIMEN / Unknown Venipuncture / Unknown 01/23/2024 10:39 AM CDT 01/23/2024 10:42 AM CDT Gladys Mcgee MD LAB - HEMATOLOGY ORD ERABLES [facility] [address] [place] [phone] documented in this encounter Visit Diagnoses Not [...] Given 02/14/2024 8:56 PM CDT 3 mL acetaminophen (Tylenol) tablet [...] Given 02/15/2024 3:27 AM CDT 3 mL amLODIPine (Norvasc) tablet 10 mg 10 mg, Enteral Tube, DAILY, First dose (after last modification) on Sun02/12/24 at 0900, Until Discontinued $ Given 02/15/2024 9:25 AM CDT 10 mg G Tube $ Given 02/14/2024 8:22 AM CDT 10 mg G Tube $ Given 02/13/2024 9:09 AM CDT 10 mg G Tube aspirin chew tablet 81 mg 81 mg, Enteral Tube, DAILY, First dose on Sun01/25/24 at 0900, Until Discontinued $ Given 02/15/2024 9:25 AM CDT 81 mg G Tub e $ Given 02/14/2024 8:25 AM CDT 81 mg G Tube $ Given 02/13/2024 9:10 AM CDT 81 mg G Tube atorvastatin (Lipitor) tablet 40 mg 40 mg, Enteral Tube, AT BEDTIME, First dose (after last modification) on Sun02/07/24 at 2100, Until Discontinued $ Given 02/14/2024 8:54 PM CDT 40 mg NG Tube $ Given 02/13/2024 8:43 PM CDT 40 mg G Tube $ Given 02/12/2024 8:15 PM CDT 40 mg G Tube clopidogrel (plaVIX) tablet 75 mg 75 [...] IV STAT NOTIFY PROVIDER OF HYPOGLYCEMIC EVENT. famotidine (Pepcid) tablet 20 mg 20 mg, Enteral Tube, 2 TIMES DAILY, First dose on Sun02/04/24 at 1115, Until Discontinued $ Given 02/15/2024 9:25 AM CDT 20 mg G Tube $ Given 02/14/2024 8:55 PM CDT 20 mg NG Tube $ Given 02/14/2024 8:25 AM CDT 20 mg G Tube folic acid (Folvite) tablet 1 mg 1 mg, Enteral Tube, DAILY, First dose on Loreta 01/31/24 at 1200, Until Discontinued $ Given 02/15/2024 9:25 AM CDT 1 mg G Tube $ Given 02/14/2024 8:26 AM CDT 1 mg G Tube $ Given 02/13/2024 9:09 AM CDT 1 mg G Tube glucagon (Glucagen) injection 1 mg 1 mg, [...] gently; use immediately and discard unused portion heparin injection 5,000 Units 5,000 Units, Subcutaneous, 2 TIMES DAILY, First dose (after last modification) on Sun02/05/24 at 2100, Until Discontinued $ Given 02/15/2024 9:25 AM CDT 5,000 Units Abd Left Lower Quadrant $ Given 02/14/2024 8:54 PM CDT 5,000 Units A bdominal Tissue $ Given 02/14/2024 8:29 AM CDT 5,000 Units A bd Left Upper Quadrant hydrALAZINE (Apresoline) injection 10 mg 10 mg, Intravenous, EVERY 1 HOUR PRN, Hypertension, SBP<180, Starting on Sun01/26/24 at 2112, Until Sun02/15/24 at 1849 $ Given 01/28/2024 2:35 PM CDT 10 mg $ Given 01/28/2024 3:35 AM CDT 10 mg $ Given 01/26/2024 9:24 PM CDT 10 mg insulin aspart (NovoLOG) pen 0-18 Units 0-18 [...] d Right Upper Quadrant insulin NPH pen 15 Units 15 Units, [...] PM CDT 15 Units Le ft Arm modafinil (Provigil) tablet 200 mg 200 mg, [...] 9:09 AM CDT 1 tablet G Tube ondansetron (Zofran) injection 4 mg 4 mg, Intravenous, EVERY 4 HOURS PRN, Nausea/Vomiting, Starting on Sun01/24/24 at 1636, Until Sun02/15/24 at 1849, Administer over 2 to 5 minutes. $ Given 01/24/2024 4:44 PM CDT 4 mg prochlorperazine (Compazine) injection 10 mg 10 mg, Intravenous, EVERY 4 HOURS PRN, Nausea/Vomiting, Starting on Sun01/24/24 at 1636, Until Sun02/15/24 at 1849, If Zofran unavailable/ineffective Max intravenous rate = 5 mg/min $ Given 01/24/2024 6:36 PM CDT 10 mg senna-docusate (Senokot-S) tablet 2 tablet 2 tablet, [...] 9:09 AM CDT 100 mg G Tube documented in this encounter Active and Recently Administered Medications Times are shown in CDT. Scheduled Medication Order 02/13/2024 02/14/2024 02/15/2024 0.9% NaCl injection 3 mL(Linked Group 1) 3 mL, Intracatheter, EVERY 8 HOURS, First dose on Sun01/23/24 at 1400, Until Discontinued, Flush peripheral IV catheter with 3 mL of normal saline every 8 hours. 0116 ($ Given - Provider: Ashish Dai RN)1402 ($ Given - Provider: Vee Botello RN)2042 ($ Given - Provider: Rach London RN) 0532 ($ Given - Provider: Rach London RN)1400 ($ Given - Provider: Hamlet Patel RN)2055 ($ Given - Provider: Sylvia Cronin, RN) 0533 ($ Given - Provider: Sylvia Cronin RN)1350 ($ Given - Provider: Rach Alfaro, Graduate Nurse) albuterol-ipratropium (Duo-Neb) nebulizer solution 3 mL 3 mL, Inhalation, EVERY 6 HOURS, First dose on Sun01/24/24 at 1900, Until Discontinued 0330 ($ Given - Provider: Lily Osorio PRESSURE CONTROLLER)0758 ($ Given - Provider: Sejal Bautista PRESSURE CONTROLLER)1359 ($ Given - Provider: Sejal Bautista PRESSURE CONTROLLER)2005 ($ Given - Provider: Andrea Lance [facility]) 0331 ($ Given - Provider: Andrea Lance PRESSURE CONTROLLER)0744 ($ Given - Provider: Christi Torres PRESSURE CONTROLLER)1504 ($ Given - Provider: Christi Torres PRESSURE CONTROLLER)2017 ($ Given - Provider: Christos Sheikh [facility]) 0327 ($ Given - Provider: Christos Sheikh PRESSURE CONTROLLER)0807 ($ Given - Provider: Christi Torres PRESSURE CONTROLLER)1517 ($ Given - Provider: Christi Torres PRESSURE CONTROLLER) amLODIPine (Norvasc) tablet 10 mg 10 mg, [...] dose on Sun01/25/24 at 0900, Until Discontinued 09 ($ Given - Provider: Hamlet Patel RN) 0825 ($ Given - Provider: Hamlet Patel RN) 09 ($ Given - Provider: Rach Alfaro, Graduate Nurse) atorvastatin (Lipitor) tablet 40 mg 40 mg, Enteral Tube, AT BEDTIME, First dose (after last modification) on Sun02/07/24 at 2100, Until Discontinued 2042 ($ Given - Provider: Rach London, ZACHARY) 2053 ($ Given - Provider: Sylvia Cronin, ZACHARY) atropine 1 % ophthalmic solution 1 drop (CANCELED) 1 drop, Sublingual, EVERY 8 HOURS, First dose (after last modification) on Sun02/12/24 at 1400, Until Discontinued 0554 ($ Given - Provider: Ashish Dai RN)1409 ($ Given - Provider: Vee Botello, ZACHARY)2213 ($ Given - Provider: Rach London, ZACHARY) 0533 ($ Given - Provider: Rach London RN) clopidogrel (plaVIX) tablet 75 mg 75 mg, Enteral Tube, DAILY, First dose (after last modification) on Sun01/31/24 at 0900, Until Discontinued 0910 ($ Given - Provider: Hamlet Patel RN) 0822 ($ Given - Provider: Hamlet Patel RN) 0925 ($ Given - Provider: Rach Alfaro, Graduate Nurse) famotidine (Pepcid) tablet 20 mg 20 mg, Enteral Tube, 2 TIMES DAILY, First dose on Sun02/04/24 at 1115, Until Discontinued 09 ($ Given - Provider: Hamlet Patel RN)2042 ($ Given - Provider: Rach London RN) 0825 ($ Given - Provider: Hamlet Patel RN)2054 ($ Given - Provider: Sylvia Cronin, ZACHARY) 0925 ($ Given - Provider: Rach Alfaro, Graduate Nurse) folic acid (Folvite) tablet 1 mg 1 mg, Enteral Tube, DAILY, First dose on Sun01/31/24 at 1200, Until Discontinued 0909 ($ Given - Provider: Hamlet Patel RN) 0826 ($ Given - Provider: Hamlet Patel RN) 0925 ($ Given - Provider: Rach Alfaro, Graduate Nurse) furosemide (Lasix) injection 20 mg (COMPLETED) [...] Graduate Nurse)1714 ($ Given - Provider: Harrison Cuenca, ZACHARY) guaiFENesin (Robitussin) solution 10 mL (CANCELED) 10 mL, Enteral Tube, EVERY 6 HOURS, First dose on Sun02/10/24 at 1200, Until Discontinued 0557 ($ Given - Provider: Ashish Dai RN)1226 ($ Given - Provider: Hamlet Patel RN)1841 ($ Given - Provider: Hamlet Paetl RN)2353 ($ Given - Provider: Rach London RN) 0532 ($ Given - Provider: Rach London, ZACHARY) heparin injection 5,000 Units 5,000 Units, Subcutaneous, [...] Patel RN)204 ($ Given - Provider: Rach London, ZACHARY) 0822 ($ Given - Provider: Hamlet Patel, ZACHARY) insulin aspart (NovoLOG) pen 0-18 Units 0-18 Units, Subcutaneous, EVERY 6 HOURS, First dose (after last modification) on 01/28/24 at 1200, Until Discontinued, High Dose: Correction [...] ZACHARY) 0533 ($ Given - Provider: Sylvia Cronin, ZACHARY)1214 ($ Given - Provider: Rach Alfaro, Graduate Nurse)1715 ($ Given - Provider: Harrison Cuenca, ZACHARY) insulin NPH pen 15 Units 15 Units, Subcutaneous, EVERY 12 HOURS, First dose (after last modification) on Loreta 02/07/24 at 2100, Until Discontinued, Obtain current Blood Glucose if necessary . WASTE DISPOSAL INSTRUCTIONS: Black Bin Disposal required. 0553 ($ Given - Provider: Ashish Dai RN)1839 ($ Given - Provider: Hamlet Patel RN) 0533 ($ Given - Provider: Rach London, ZACHARY)1818 ($ Given - Provider: Hamlet Patel RN) 0534 ($ Given - Provider: Sylvia Cronin, ZACHARY)1714 ($ Given - Provider: Harrison Cuenca, ZACHARY) magnesium sulfate 2 g in 50 mL bolus (COMPLETED) 2 g, at 25 mL/hr, Administer over 120 Minutes, Intravenous, ONCE, 1 dose, On Loreta 02/14/24 at 0600, Infuse at 1 gm/hr 0552 ($ New Bag/Syringe - Provider: Rach London RN)0800 (Stopped - Provider: Hamlet Patel RN) magnesium sulfate 2 g in 50 mL bolus (COMPLETED) 2 g, at 25 mL/hr, Administer over 120 Minutes, Intravenous, ONCE, 1 dose, On Sun02/15/24 at 0845, Infuse at 1 gm/hr 0923 ($ New Bag/Syringe - Provider: Gerson Freeman Nurse)1123 (Stopped - Provider: Gerson Freeman Nurse) [...] 1135 ($ Given - Provider: Hamlet Patel RN)205 ($ Given - Provider: Sylvia Cronin RN) 09 ($ Given - Provider: Rach Alfaro, Graduate Nurse) sodium chloride 3 % nebulizer solution 3 mL 3 mL, Inhalation, EVERY 6 HOURS, First dose on Sun02/12/24 at 1200, Until Discontinued 0342 ($ Given - Provider: Lily Osorio PRESSURE CONTROLLER)0758 ($ Given - Provider: Sejal Bautista PRESSURE CONTROLLER)1359 ($ Given - Provider: Sejal Bautista PRESSURE CONTROLLER)2006 ($ Given - Provider: Andrea Lance PRESSURE CONTROLLER) 0331 ($ Given - Provider: Andrea Lance PRESSURE CONTROLLER)0744 ($ Given - Provider: Christi Torres PRESSURE CONTROLLER)1504 ($ Given - Provider: Christi Torres PRESSURE CONTROLLER)2017 ($ Given - Provider: Christos Sheikh PRESSURE CONTROLLER) 0327 ($ Given - Provider: Christos Sheikh PRESSURE CONTROLLER)0809 ($ Given - Provider: Christi Torres PRESSURE CONTROLLER)1517 ($ Given - Provider: Christi Torres RCP) [...] Sun02/12/24 at 1203, Until Sun02/15/24 at 1849 dextrose 10 % IV bolus(Linked Group 3) [...] portion documented in this encounter Care Teams Certified Nursing Attendant Relationship Specialty Start Date End Date Sylvain Daniels MD PCP - General Family Medicine 05/10/22 02/14/24 documented as of this encounter
--- OUTSIDE RECORDS SUMMARY | 2024-10-11 19:44 | XMS_ITS | Encounter Summary ---
Author Organization [facility] Health Address [address] [place] [address] Care Team Providers Care Finance Intern Name Role Phone Sylvain Daniels MD Primary Care Provider +1- [phone] Encounter Details Date Type Department Care Team (Latest Contact Info) Description 01/24/2024 Travel Social History Tobacco Use Types Packs/Day [...] in a fdc (including now)? No 01/24/2024 Education Answer Date [...] st Contact Info) Description 10/20/2024 8:00 AM PASTEURISER OPERATOR Office Visit [facility] Health Medical Group - Family Medicine [address] [place] [phone] Kiana Cole MD [address] [place] [address] 11/28/2024 9:00 AM PASTEURISER OPERATOR Office Visit [facility] Physician Group - Neurology [address] [facility], [place] [address] Aline Finch MD [address] [facility] [place] [address] 02/10/2025 10:00 AM CDT Office Visit [facility]ician Group - Cardiology [address] [place] [phone] Curly Lay MD [address] [place] [address] documented as of this encounter Visit Diagnoses Not on filedocumented in this encounter Care Teams Finance Intern Relationship Specialty Start Date End Date Sylvain Daniels MD PCP - General Family Medicine 05/10/22 02/14/24 documented as of this encounter
--- OUTSIDE RECORDS SUMMARY | 2024-10-11 19:44 | XMS_ITS | Encounter Summary ---
Author Organization [facility] Address [address] [place] [address] Care Team Providers Care Stogy Roller Name Role Phone Sylvain Daniels MD Primary Care Provider +1- [phone] Reason for Visit * Reason Onset Date Comments Appointment 10/03/2022 Encounter Details Date Type Department Care Team (Late st Contact Info) Description 10/03/2022 Telephone [facility] - Family Medicine [address] [place] [phone] Hazel Saul, PAJosephC [address] [place] [address] Appointment Social History Tobacco Use Types Packs/Day [...] Coronavirus/COVID-19? No / Unsure 09/25/2022 9:59 AM STEAM GIGGER documented as of this encounter Functional Status [...] encounter Miscellaneous Notes * Telephone Encounter - Shaye Smith MA - 10/03/2022 8:56 AM CST Called patient at cell number lmor that we need to move his appointment to today or the week of oct 17 M GIGGER documented in this encounter Plan of Treatment Upcoming Encounters Date Type Department Care Team (Late st Contact Info) Description 10/20/2024 8:00 AM STEAM GIGGER Office Visit [facility] Group - Family Medicine [address] [facility], [facility] [address] [place] [phone] Kiana Cole MD [address] [place], [place] [phone] 11/28/2024 9:00 AM STEAM GIGGER Office Visit [facility] Physician Group - Neurology [address] [facility], [place] [address] Aline Finch MD [address] [facility] [place] [address] 02/10/2025 10:00 AM CDT Office Visit [facility] Physician Group - Cardiology [address] [place] [address] Curly Lay MD [address] [place] [address] documented as of this encounter Visit Diagnoses Not on filedocumented in this encounter Care Teams Stogy Roller Relationship Specialty Start Date End Date Sylvain Daniels MD PCP - General Family Medicine 05/10/22 02/14/24 documented as of this encounter
--- OUTSIDE RECORDS SUMMARY | 2024-10-11 19:44 | XMS_ITS | Encounter Summary ---
Author Organization [facility] Health Address [address] [place] [address] Care Team Providers Care Cabinetmaker Helper Name Role Phone Sylvain Daniels MD Primary Care Provider +1- [phone] Encounter Details Date Type Department Care Team (Latest Contact Info) Description 09/17/2023 Travel Social History Tobacco Use Types Packs/Day [...] the money to buy more. Never true 10/13/20 22 Within the past 12 months, t [...] st Contact Info) Description 10/20/2024 8:00 AM SUSTAINABLE DESIGN COORDINATOR Office Visit [facility] Health Medical Group - Family Medicine [address] [facility], [facility] [address] [place] [address] Kiana Cole MD [address] [place] [address] 11/28/2024 9:00 AM SUSTAINABLE DESIGN COORDINATOR Office Visit [facility] - Neurology [address] [facility] [place] [phone] Aline Finch MD [address] [facility] [place] [address] 02/10/2025 10:00 AM CDT Office Visit [facility] - Cardiology [address] [facility], [facility] [address] [place] [phone] Curly Lay MD [address] [place] [address] documented as of this encounter Visit Diagnoses Not on filedocumented in this encounter Care Teams Cabinetmaker Helper Relationship Specialty Start Date End Date Sylvain Daniels MD PCP - General Family Medicine 05/10/22 02/14/24 documented as of this encounter
--- OUTSIDE RECORDS SUMMARY | 2024-10-11 19:44 | XMS_ITS | Encounter Summary ---
Author Organization [facility] Health Address [address] [place] [address] Care Team Providers Care Knitting Machine Fixer Head Name Role Phone Sylvain Daniels MD Primary Care Provider +1- [phone] Encounter Details Date Type Department Care Team (Late st Contact Info) Description 10/06/2022 Patient Outreach [facility] - Care Coordination [facility] [place] [address] Tarah Hager Social History Tobacco Use Types Packs/Day Years [...] Coronavirus/COVID-19? No / Unsure 09/25/2022 9:59 AM BLEACH MIXER documented as of this encounter Functional Status [...] encounter Miscellaneous Notes * Telephone Encounter - Tarah Hager - 10/06/2022 11:41 AM CST patient was already contacted 08/2022 CH MIXER documented in this encounter Plan of Treatment Upcoming Encounters Date Type Department Care Team (Late st Contact Info) Description 10/20/2024 8:00 AM BLEACH MIXER Office Visit [facility] - Family Medicine [address] [facility], [facility] [address] [place] [phone] Kiana Cole MD [address] [place] [address] 11/28/2024 9:00 AM BLEACH MIXER Office Visit [facility] Physician Group - Neurology [address] [facility], [place] [address] Aline Finch MD [address] [facility] [place] [address] 02/10/2025 10:00 AM CDT Office Visit [facility] Physician Group - Cardiology [address] [facility] [place] [address] Curly Lay MD [address] [place] [address] documented as of this encounter Visit Diagnoses Not on filedocumented in this encounter Care Teams Knitting Machine Fixer Head Relationship Specialty Start Date End Date Sylvain Daniels MD PCP - General Family Medicine 05/10/22 02/14/24 documented as of this encounter
--- OUTSIDE RECORDS SUMMARY | 2024-10-11 19:44 | XMS_ITS | Encounter Summary ---
Author Organization [facility] Address [address] [facility] [place] [address] Care Team Providers Care Painter Hand Name Role Phone Sylvain Daniels MD Primary Care Provider +- [phone] Sylvain Daniels MD Unavailable [phone] Encounter Details Date Type Department Care Team (Late st Contact Info) Description 09/05/2022 Patient Outreach [facility] Medical Group - Care Coordination [address] [place] [phone] Tarah Hager Social History Tobacco Use Types [...] * Telephone Encounter - Tarah Hager - 09/05/2022 10:09 AM CST Project [employer] Gap Outreach Patient contact attempt regarding open care gaps. Outreach Attempt #: 3rd of 3 Outreach Method: Cell phone Outreach Status: left message MyChart: Final call attempt HM items to be addressed: Diabetic Eye Exam and Flu Vaccine HM STATUS: due now or within the next 30 days: Health Maintenance Due Topic Date Due ??? COVID-19 VACCINE (1) Never done ??? ZOSTER VACCINE (1 of 2) Never done ??? DTAP/TDAP/TD VACCINES (2 - Td or Tdap) 10/15/2017 ??? DIABETES-EYE EXAM Never done ??? PNEUMOCOCCAL VACCINE (2 - PCV) 11/05/2019 ??? INFLUENZA VACCINE (1) 06/15/2022 Tarah Hager 09/05/2022 10:10 AM ETRIC ANAESTHETIST documented in this encounter Plan of Treatment Upcoming Encounters Date Type Department Care Team (Late st Contact Info) Description 10/20/2024 8:00 AM OBSTETRIC ANAESTHETIST Office Visit [facility] Group - Family Medicine [address] [facility] [address] [place] [phone] Kiana Cole MD [address] [place], [place] [phone] 11/28/2024 9:00 AM OBSTETRIC ANAESTHETIST Office Visit [facility] Physician Group - Neurology [address] [facility], [place] [phone] Aline Finch MD [address] [facility] [place] [address] 02/10/2025 10:00 AM CDT Office Visit [facility] Physician Group - Cardiology [address] [facility] [address] [place] [phone] Curly Lay MD [address] [place] [address] documented as of this encounter Visit Diagnoses Not on filedocumented in this encounter Care Teams Painter Hand Relationship Specialty Start Date End Date Sylvain Daniels MD PCP - General Family Medicine 05/10/22 02/14/24 Sylvain Daniels MD [address] [place] [address] PCP - Attributed-[facility] Commercial 05/15/22 10/01/22 documented as of this encounter
--- OUTSIDE RECORDS SUMMARY | 2024-10-11 19:44 | XMS_ITS | Encounter Summary ---
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 No / Unsure 10/18/2022 9:47 AM EVP AND CHIEF OPERATING OFFICER documented as of this encounter Functional Status [...] st Contact Info) Description 10/20/2024 8:00 AM EVP AND CHIEF OPERATING OFFICER Office Visit [facility] Medical Group - Family Medicine [address] [facility] [place] [address] [place] [phone] Kiana Cole MD [address] [place] [address] 11/28/2024 9:00 AM EVP AND CHIEF OPERATING OFFICER Office Visit [facility] Physician Group - Neurology [address] [facility], [place] [address] Aline Finch MD [address] [facility] 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
--- OUTSIDE RECORDS SUMMARY | 2024-10-11 19:44 | XMS_ITS | Encounter Summary ---
Author Organization [facility] Address [address] [facility] [place] [address] Care Team Providers Care Acid Cleaner Name Role Phone Sylvain Daniels MD Primary Care Provider [phone] Encounter Details Date Type Department Care Team (Late st Contact Info) Description 05/07/2023 1:00 PM CDT Office Visit [facility] [address] [place] [address]. [place] [address] Eugene, Provider [facility] Exp Encounter for health-related screening (Primary Dx); Mild intermittent asthma with acute exacerbation (HCC); Erectile dysfunction, unspecified erectile dysfunction type Social History Tobacco Use Types Packs/Day Years [...] Sign Reading Time Taken Comments Blood Pressure 140/88 05/07/2023 1:18 PM CDT man ual Pulse 74 05/07/2023 1:07 PM CDT Temperature 36.9 ??C (98.4 ??F) 05/07/2023 1:07 PM CD T Respiratory Rate 16 05/07/2023 1:07 PM CDT Oxygen Saturation 97% 05/07/2023 1:07 PM CDT Inhaled Oxygen Concentration - - Weight 145.2 kg (320 lb) 05/07/2023 1:07 PM CDT Height 193 cm (6' 4 ) 05/07/2023 1:07 PM CDT Body Mass Index 38.95 05/07/2023 1:07 PM CDT documented in this encounter Functional [...] as of this encounter Progress Notes * Dorinda Cha, BODY ENGINEER-[employer]ISHER [employer]AND - 05/07/2023 2:09 PM CDT Yaya Vazquez is a 62 year old male patient, He needs clearance today for pre employment. 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 Was supposed to see his PCP office today (by PATCH WORKER), but states he arrived late to appt and missed it. Had been notified that his BP was too elevated to move to the next step of testing for his occupation. Arrives today for pre-employment evaluation with specific forms. Medications reviewed. Outpatient Medications Marked as Taking for the 05/07/23 encounter (Office Visit) with Eugene Provider Delvisg Exp Medication Sig ??? albuterol HFA (Proventil; Ventolin; Proair) 108 (90 Base) MCG/ACT inhaler Inhale 2 (two) puffs by mouth every 4 hours as needed for Wheezing ??? amLODIPine (NORVASC) 10 MG tablet Take 1 (one) tablet by mouth at bedtime ??? Aspirin 81 MG Take 1 (one) tablet by mouth once daily ??? atorvastatin (LIPITOR) 80 MG tablet Take 1 (one) tablet by mouth at bedtime ??? Blood Glucose Monitoring Suppl (ONE TOUCH ULTRA MINI) W/DEVICE KIT Check blood sugars twice daily ??? blood glucose test strip Use 1 strip 2 times daily ??? carvedilol (COREG) 25 MG tablet Take 1 (one) tablet by mouth 2 times daily with morning and evening meal ??? CPAP Use as directed ??? glipiZIDE CR 24hr (GLIPIZIDE XL) 5 MG tablet Take 1 (one) tablet by mouth once daily ??? losartan (COZAAR) 100 MG tablet Take 1 (one) tablet by mouth once daily ??? metFORMIN ER 24hr (GLUCOPHAGE XR) 500 MG tablet Take 2 (two) tablets by mouth 2 times daily ??? nitroGLYCERIN (NITROSTAT) 0.4 MG tablet Dissolve 1 tablet under the tongue every 5 minutes as needed for Angina ??? One Touch Delica Lancets Use 2 times daily Check blood sugars twice daily. ??? sildenafil (Revatio) 20 MG tablet Take 2 (two) tablets to 5 (five) tablets by mouth once daily as needed This medicine cannot be combined with nitroglycerin. ??? spironolactone (ALDACTONE) 25 MG tablet Take 1 (one) tablet by mouth once daily Allergies Allergen Reactions ??? Lisinopril Angioedema ??? Pcn [Penicillins] Swelling eyes swelled shut 50 years ago ??? Penicillin V Rash Past Medical History: Diagnosis Date ??? Anemia 01/2018 ??? Asthma ??? Chest congestion 08/05/2020 ??? Confusional arousals 08/05/2020 ??? Controlled type 2 diabetes mellitus without complication, without long-term current use of insulin ([facility]) 09/28/2011 ??? Coronary artery disease involving quinault heart with angina pectoris ([facility]) 09/04/2018 ??? Cough syncope 2017 ??? Daytime sleepiness 08/05/2020 ??? Essential hypertension 01/23/2018 ??? Hyperlipidemia 08/05/2020 ??? Inadequate sleep hygiene 08/05/2020 ??? Morbid obesity with BMI of 40.0-44.9, adult ([facility]) 08/05/2020 ??? Nocturia 08/05/2020 ??? Obesity (BMI [...] artery bypass graft x 3 ??? Tonsillectomy Social History Socioeconomic History ??? Marital status: Legally Spouse name: Not on file ??? Number of children: 1 ??? Years of education: 16 ??? Highest education level: Bachelor's degree (e.g., BA, AB, BS) Occupational History ??? 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 [...] of Health Financial Resource Strain: Low Risk (08/05/2020) Overall Financial Resource Strain (CARDIA) ??? Difficulty of Paying Living Expenses: Not hard at all Food Insecurity: No Food Insecurity (07/27/2022) Hunger Vital Sign ??? Worried About Running Out of Food in the Last Year: Never true ??? Ran Out of Food in the Last Year: Never true Transportation Needs: No Transportation Needs (08/05/2020) PRAPARE - Transportation ??? Lack of Transportation (Medical): No ??? Lack of Transportation (Non-Medical): No Stress: Not on file Housing Stability: Not on file Social History Tobacco Use Smoking Status Some Days ??? Types: Cigars ??? Start date: 1997 Smokeless Tobacco Never Tobacco Comments 3-4 times / month-2019 says 1x/month Vaping Use ??? Vaping Use: Never used He denies use of steroids, other performance, or recreational drugs. ROS Constitutional: Negative Eyes: Negative, denies vision changes, blurriness. EMNT: Negative Cardio: Negative, denies any history of chest pain, chest pain with exertion, feeling lightheaded or dizziness with exercise. Resp: Negative, denies difficulty breathing during or after exertion. Gastro: Negative : Negative Musculoskeletal: Negative, denies any known lifting restrictions, denies any known physical limitations. Skin: Negative Lymphatic/Allergy: Negative Neuro: Negative, denies any history of concussion, head injury, or seizures. Psych: Do you feel stressed out or under a lot of pressure? No Do you ever feel sad, hopeless, depressed, or anxious? No Do you feel safe at your home or residence? Yes BP 140/89 Pulse 74 Temp 98.4 ??F (36.9 ??C) (Oral) Resp 16 Ht 1.93 m (6' 4 ) Wt (!) 145.2kg (320 lb) SpO2 97% No results found. Physical Exam Constitutional: Patient is oriented to person, place, and time and well- developed, well-nourished, and in no distress. Vital signs are normal. Head: Normocephalic and atraumatic. Eyes: Visual jordan normal bilaterally.Conjunctivae, EOM and lids are normal. Pupils are equal, round, and reactive to light. Vision is grossly intact. Right Ear: Hearing, tympanic membrane, external ear and ear canal normal. Left Ear: Hearing, tympanic membrane, external ear and ear canal normal. Nose: Nose normal. Mouth/Throat: Uvula is midline,oropharynx is clear & moist & mucous membranes are normal. Neck: Trachea normal, normal range of motion and full passive range of motion without pain. Neck supple. No JVD present. No tracheal deviation present. Cardiovascular: Normal rate, regular rhythm, S1 normal, S2 normal, intact and symmetrical distal pulses; simultaneous radial / femoral pulses. Exam reveals no gallop. No murmur heard. Pulmonary/Chest: Effort normal; breath sounds clear. Abdominal: Soft.No distension, tenderness, or hepatosplenomegaly. : Deferred (screening negative) Musculoskeletal: Normal range of motion of extremities.. Cervical back: Normal. Thoracic back: Normal. Lumbar back: Normal. Lymphadenopathy: No cervical, axillary, or inguinal adenopathy. Neurological: Normal motor skills, normal strength and intact II - XII cranial nerves. Gait normal. Skin: Skin is warm, dry and intact. No rash or skin lesions noted. Psychiatric: Mood, memory, affect and judgment normal. Functional assessment: -Able to reach overhead Yes -Climb stair Yes -Near-visual acuity, including depth perception, color, and field of vision Yes -Ability to squat/bend/kneel without difficulty Yes -Ability to sit/stand, walk, and move about without difficulty Yes Any limitations: No, if yes-they are listed below: Encounter Diagnoses Name Primary? Encounter for health-related screening Yes ??? Mild intermittent asthma with acute exacerbation ??? Erectile dysfunction, unspecified erectile dysfunction type PLAN: Cleared to work without restrictions - form signed and returned to patient and scanned into medicalrecords. Pt is to take documents for next step of physical to be completed by employer. Asking for refills of Albuterol and Cialis today. Sent to pharmacy. Recommend f/u with PCP if any additional health concerns. Taking all Rx meds as directed. Last A1C 5.9 - 6 mos ago. Discussed use of CPAP machine, eating healthy, increasing physical activity level. Reviewed health maintenance and substance abuse as appropriate. Continue to follow-up with Sylvain Daniels MD as directed-if no PCP, referral given. .WILLIE Marshall 05/07/2023 2:09 PM documented in this encounter Plan of Treatment Upcoming Encounters Date Type Department Care Team (Late st Contact Info) Description 10/20/2024 8:00 AM SECURITY SHIFT SUPERVISOR Office Visit [facility] - Family Medicine [address] [facility] [address] [place] [phone] Kiana Cole MD [address] [place] [address] 11/28/2024 9:00 AM SECURITY SHIFT SUPERVISOR Office Visit [facility] - Neurology [address] [facility] [place] [id number] Aline Finch MD [address] [facility] [place] [address] 02/10/2025 10:00 AM CDT Office Visit [facility] - Cardiology [address] [facility] [facility] [address] [place] [phone] Curly Lay MD [address] [facility] [address] [place] [address] documented as of this encounter Visit Diagnoses Diagnosis Encounter for health-related screening- Primary Mild intermittent asthma with acute exacerbation (HCC) Unspecified asthma, with exacerbation Erectile dysfunction, unspecified erectile dysfunction type documented in this encounter Care Teams Acid Cleaner Relationship Specialty Start Date End Date Sylvain Daniels MD PCP - General Family Medicine 05/10/22 02/14/24 documented as of this encounter
--- OUTSIDE RECORDS SUMMARY | 2024-10-11 19:44 | XMS_ITS | Encounter Summary ---
Author Organization [facility] Health Address [address] [address] Care Team Providers Care Wafer Line Worker Name Role Phone Sylvain Daniels MD Primary Care Provider [phone]- [phone] Reason for Referral * Other Medical (Routine) - Closed Specialty Diagnoses / Procedures Referred By Contac t Referred To Contact Diabetes Education Diagnoses Controlled type 2 diabetes mellitus without complication, without long-term current use of insulin (HCC) Radha Donovan APRN-LIBRARY DIRECTOR [address] [place] [address] Referral ID Status Reason Start Date Expiration Date V isits Requested Visits Authorized [id number] Closed Specialty Services Required 09/17/2023 09/16/2024 5 5 READY WORKER * Other Medical (Routine) - Closed Specialty Diagnoses / Procedures Referred By Contac t Referred To Contact Nutrition Services Diagnoses Controlled type 2 diabetes mellitus without complication, without long-term current use of insulin (HCC) BMI 39.0-39.9,adult Radha Donovan, ROLL OPERATOR-LIBRARY DIRECTOR [address] [place] [address] Referral ID Status Reason Start Date Expiration Date V isits Requested Visits Authorized [id number] Closed Specialty Services Required 09/17/2023 09/16/2024 5 5 READY WORKER Reason for Visit * Reason Onset Date Comments COVID-19 IMMUNIZATION/INJECTION 09/17/2023 Imm Inj 09/17/2023 Encounter Details Date Type Department Care Team (Late st Contact Info) Description 09/17/2023 1:20 PM MAKE READY WORKER Office Visit [facility] - Internal Medicine [address] [place] [address] Radha Donovan, ROSE-AZEB [address] [place] [address] Essential hypertension (Primary Dx); Coronary artery disease involving coronary bypass graft of menominee heart without angina pectoris; S/P CABG x 3; Hyperlipidemia; Coronary artery disease without angina pectoris, unspecified vessel or lesion type, unspecified whether menominee or transplanted heart; Chronic obstructive pulmonary disease; MONTY (obstructive sleep apnea); BMI 39.0-39.9,adult; Controlled type 2 diabetes mellitus without complication, without long-term current use of insulin (HCC); Urinary frequency; Screening for thyroid disorder; Prostate cancer screening; Healthcare maintenance; Medication monitoring encounter; Need for COVID-19 vaccine; Need for prophylactic vaccination and inoculation against influenza; Acute hypoxemic respiratory failure (HCC); Type 2 diabetes mellitus with other circulatory complication, without long-term current use of insulin (HCC) Social History Tobacco Use Types Packs/Day Years Used Date Smoking Tobacco: Some Days Cigars Started: 1997 Smokeless Tobacco: Never Tobacco Cessation:Ready to Q uit: Not Asked; Counseling Given: Not Answered Comments:3-4 times / month-2020 [...] Sign Reading Time Taken Comments Blood Pressure 160/100 09/17/2023 1:24 PM MAKE READY WORKER Pulse 91 09/17/2023 1:24 PM MAKE READY WORKER Temperature 36.1 ??C (97 ??F) 09/17/2023 1:24 PM MAKE READY WORKER Respiratory Rate - - Oxygen Saturation 97% 09/17/2023 1:24 PM MAKE READY WORKER Inhaled Oxygen Concentration - - Weight 148.6 kg (327 lb 9.6 oz) 09/17/2023 1:24 PM MAKE READY WORKER Height 193 cm (6' 4 ) 09/17/2023 1:24 PM MAKE READY WORKER Body Mass Index 39.88 09/17/2023 1:24 PM MAKE READY WORKER documented in this encounter Functional Status Functional [...] No 01/30/2018 documented as of this encounter Patient Instructions * Patient Instructions* Radha Donovan, ROLL OPERATOR-LIBRARY DIRECTOR - 09/17/2023 1:50 PM MAKE READY WORKER Images from the original note were not included. Recommend get fasting lab work at earliest convenience (either blood test or urine test). Can be done at our office (Sunday thru Sunday) or at the nearest [facility]. Recommend restarting blood pressure medication with close monitoring of home blood pressures. Keep a log of these readings, notify office of these in next couple weeks (through My Chart message). Work on heart healthy, low fat, low sodium diet. Call [facility]ology for referral previously placed by Dr. Daniels. Call [phone] to make an appointment. Recommend looking at CPAP machine, finding medical equipment company phone number--contact them to see about evaluation of machine/updated. Work on diabetic friendly diet, limit sugary food/beverages/carb intake. Increase regular exercise.Monitor blood sugars closely at home. Follow up with podiatry for diabetic foot/nail care. [facility] Multiple locations [place] - [phone] [facility] [phone] [facility] [phone] [place] - [phone] [facility] [phone] [email or web address] [facility] Multiple locations - [facility], [place], [place], [place] [email or web address]/ [facility] [place] [address] Conner Jeronimo [address], [address] [place] [address] [email or web address] Gavin Latham, DPM [address] [address] Ph. [phone] [email or web address] Av Capo, DPM [address] [place] [address] . [phone] [email or web address] Vaccine recipients are encouraged to enroll in the [facility] V-SAFE program for post vaccination monitoring. Sign up with your smartphone's browser at Cloudsnap.cdc.gov or Aim your smartphone's camera at this code. COVID-19 Preparedness: Post-Vaccination Frequently Asked Questions Q. Do I need to continue to wear a mask and other PPE after both vaccine doses? A. Yes. While researchers and medical records supervisor learn more about the protection that COVID-19 vaccines provides, it will be important than ever for everyone to continue using all the tools available to us to help stop this pandemic, like covering your mouth and nose with a mask, washing your hands, and staying at least six feet away from others. Here are a few paula reasons why it is important to continue with our current mitigation methods: ?? The initial clinical trials of the vaccine were not designed to determine whether vaccinated people could still spread the coronavirus without developing symptoms. Detailed data has not been released yet on whether the vaccines offer what???s known as sterilizing immunity, in which those who arevaccinated can???t contract or pass on the virus ?? The duration of protection from the vaccine against symptomatic disease is not yet known ?? The COVID-19 vaccines are not 100% effective. Effectiveness against symptomatic disease has beendocumented at 94-95% during the clinical trials. That means one out of every 20 people who get thisvaccine could still get a symptomatic infection. ?? Following the COVID-19 vaccination, immunity is not immediate. Q. Will [facility] change its current screening or testing protocols now that we have a vaccine? A. No. We do not anticipate changing any of our screening protocols, COVID testing protocols, or visitor policies in the near term until we have more data about the vaccine. Our infection control andinfectious disease team will continue to re-evaluate our guidelines as more data becomes avaialble. Q. What is the impact of the COVID-19 variants we hear about in the news? A. Viruses constantly change through mutation, and new variants of a virus are expected to occur over time. Multiple variants of the virus that causes COVID-19 have been documented in the [place] and globally during this pandemic. These variants haven't been around long enough to say for certain that the new vaccines are effective against it, but scientists aren't too worried about that -- lab studies suggest the vaccines will be protective against this strain. New variants will continue to appear as the effects of the COVID-19 pandemic continue. As new variants evolve scientists will continue to evaluate vaccine efficacy against the new variants. Given what we know about the coronavirus, it is unlikely that the virus would be able to rapidly change in such a way to escape the immune system. Escape from immunity requires that a virus accumulate a seriesof mutations, each allowing the virus to evade the effectiveness of the body???s defenses. Q. When can we stop wearing masks and social distancing? A.There is not enough information currently available to say if or when CDC or public health will stop recommending that people wear masks and avoid close contact with others to help prevent the spread of the virus. Experts need to understand more about the protection that COVID-19 vaccines providebefore making that decision. Other factors, including how many people get vaccinated and how the virus is spreading in communities, will also affect this decision. READY WORKER documented in this encounter Progress Notes * Alice Balbuena MA - 09/17/2023 2:34 PM CST COVID screening checklist was reviewed with the patient. The Information sheet was given prior to administration. Injection site aseptically cleansed and injection given per Immunization(s) protocol.See Imm/Injections activity for details. READY WORKER * Radha Donovan APRN-AZEB - 09/17/2023 1:20 PM CST SUBJECTIVE Yaya Vazquez is a 62 year old male presenting to office for overdue follow up of chronic health conditions. Last seen in PCP office by Dr. Daniels in October 2022. History of hypertension, CAD, COPD, MONTY, obesity, and type 2 diabetes. Follow up has been poor. He has had multiple cancelled appointments and no shows. Conditions to follow up on today are detailed below. Hypertension: Previously treated with amlodipine 10 mg nightly (ran out several months ago), coreg 25 mg twice daily with meals (ran out several months ago), losartan 100 mg once daily (ran out several months ago), and spironolactone 25 mg once daily (ran out several months ago). Hasn't taken any medications in several months. Denies any known medication side effects previously. Denies recent home blood pressure monitoring. Hypertension ROS: denies chest pain, headache, light headedness, blurred vision, SOB, HAN, TIA symptoms, +edema, or claudication. Patient reports bilateral ankle edema intermittently, been going on for last few months (especiallyafter running out of medication). Denies any alleviating/aggravating factors, denies any particulartime that it's worse. Notes that it leaves an indentation sometimes. Coronary Artery Disease/hyperlipidemia: Patient previously had CABG x 3. Formerly followed with furnace converter in the past, but hasn't been seen in several years. Patient had previous cardiology referral placed after last office visit, but hasn't scheuled yet--willing to schedule now though. Denies any anginal symptoms or HAN. Previously on Atorvastatin 80 mg nightly, but also ran out of that medication several months ago. COPD: Formerly treated with Albuterol inhaler prn. Per chart review was also on Trelegy inhaler daily, but patient denies any previous maintenance inhaler therapy to his knowledge. Patient hasn't followed up with pulmonary, but open to it if needed. Denies any shortness of breath, activity intolerance, chest tightness, wheezing, or cough. Lifelong non smoker, with exception of occasional cigar--none recently. MONTY: Has CPAP nightly at home, but hasn't been wearing. Wakes up rested most times. Obesity: BMI 39.88; reports that he hasn't been complying with healthy dietary choices, regular exercise, orefforts at weight loss recently. Type 2 Diabetes: Formerly treated with Metformin 1000 mg twice daily and Glipizide 5 mg once daily. Reports not being on these meds for several months, as he ran out. Has the ability to check blood sugars at home, but hasn't done so recently. further diabetic ROS: no chest pain, dyspnea or TIA's, no numbness, tingling or pain in extremities, +polyuia, no increased thirst though. Denies pain, burning, blood in urine; notes foul smelling urine diabetic diet compliance: noncompliant much of the time, medication compliance: noncompliant much of the time Denies medication side effects. CVS-no chest pain, tightness or pressure; no palpitations; no PND or orthopnea; no TIA symptoms Recent Labs Component Name 09/17/23 1330 10/18/22 1045 08/03/22 1545 HGBA1C 6.5 5.9 7.2 Recent Labs Component Name 07/27/22 0244 07/26/22 1653 12/24/19 0923 SODIUM 134* 138 136 POTASSIUM 4.2 4.0 4.0 CHLORIDE 95* 96* 101 CO2 25 29 29 BUN 17 13 11 CREATININE 0.98 0.94 0.97 GLUCOSE 285* 151* 187* CALCIUM 8.9 9.2 8.6 Recent Labs Component Name 07/23/20 0649 01/20/19 1134 03/13/18 1337 CHOL 254* 258* 247* TRIG 179* 63 79 HDL 48 63 80 LDLCALC 173* 179* 149* REVIEW OF SYSTEMS: General ROS: denies fever, chills, or sweats Cardiovascular ROS: denies chest pain, palpitations, or ankle edema Respiratory ROS: denies shortness of breath, cough or wheezing Abdominal ROS: denies nausea, vomiting, diarrhea, constipation Skin ROS: denies rashes or lesions Current Outpatient Medications Medication Sig Dispense Refill ??? albuterol HFA (Proventil; Ventolin; Proair) 108 (90 Base) MCG/ACT inhaler Inhale 1 (one) puff to 2 (two) puffs by mouth every 6 hours as needed for Shortness of Breath, Wheezing or Cough 18 g 0 ??? amLODIPine (NORVASC) 10 MG tablet Take 1 (one) tablet by mouth at bedtime 90 tablet 1 ??? Aspirin 81 MG Take 1 (one) tablet by mouth once daily ??? atorvastatin (LIPITOR) 80 MG tablet Take 1 (one) tablet by mouth at bedtime 90 tablet 1 ??? Blood Glucose Monitoring Suppl (ONE TOUCH ULTRA MINI) W/DEVICE KIT Check blood sugars twice daily 1 kit 0 ??? blood glucose test strip Use 1 strip 2 times daily 100 strip 11 ??? carvedilol (COREG) 25 MG tablet Take 1 (one) tablet by mouth 2 times daily with morning and evening meal 90 tablet 1 ??? CPAP Use as directed ??? glipiZIDE CR 24hr (GLIPIZIDE XL) 5 MG tablet Take 1 (one) tablet by mouth once daily 90 tablet 1 ??? losartan (Cozaar) 50 MG tablet Take 1 (one) tablet by mouth once daily 60 tablet 0 ??? metFORMIN (Glucophage) 500 MG tablet Take 1 (one) tablet by mouth once daily for 14 days, THEN 1 (one) tablet 2 times daily with morning and evening meal for 45 days. 104 tablet 0 ??? nitroGLYCERIN (NITROSTAT) 0.4 MG tablet Dissolve 1 tablet under the tongue every 5 minutes as needed for Angina 20 tablet 1 ??? One Touch Delica Lancets Use 2 times daily Check blood sugars twice daily. 100 Each 11 ??? sildenafil (Revatio) 20 MG tablet Take 2 (two) tablets to 5 (five) tablets by mouth once daily as needed This medicine cannot be combined with nitroglycerin. 30 tablet 0 ??? spironolactone (ALDACTONE) 25 MG tablet Take 1 (one) tablet by mouth once daily 30 tablet 5 No current facility-administered medications for this visit. Past medical and social history; allergies; and medications were reviewed and updated. OBJECTIVE: BP (!) 160/100 Pulse 91 Temp 97 ??F (36.1 ??C) Ht 1.93 m (6' 4 ) Wt (!) 148.6 kg (327 lb 9.6 oz) SpO2 97% BMI 39.88 kg/m?? General appearance - alert, pleasant, chronically ill appearing, and in no acute distress Mental Status - alert, oriented to person, place, and time Neck - supple, no significant adenopathy, negative carotid bruits bilaterally Nares - no erythema, edema, bleeding, or visible polyps Pharynx- without erythema or exudate TMs -pearly, canals without erythema or edema Lungs - clear to auscultation, no wheezes, rales or rhonchi, symmetric air entry. Mildly decreased secondary to body habitus. Heart - normal rate, regular rhythm, normal S1, S2, no murmurs, rubs, clicks or gallops Abdomen - round, nontender, nondistended, bowel sounds active in all quadrants Extremities - peripheral pulses normal, non pitting bilateral lower extremity edema, no clubbing orcyanosis Skin - normal coloration and turgor, no rashes/no suspicious skin lesions noted to visible skin Skin on feet intact with no open wounds. Sensation to microfilament intact. Pedal pulses intact. Exam was performed today on bare feet. PHQ-9 score 0/27 ASSESSMENT AND PLAN: Orders Placed This Encounter ??? COVID PFIZER 12+YR 30MCG/0.3ML ??? FLU VACCINE 4VALENT SPLIT *P-FREE 0.5ML IM (FLUARIX/FLULAVAL) ??? MICROALB/CREAT RATIO URINE RANDOM PANEL Order Specific Question: Release to patient Answer: Immediate ??? URINALYSIS REFLEX MICROSCOPIC REFLEX CULTURE Order Specific Question: Release to patient Answer: Immediate ??? COMPREHENSIVE METABOLIC PANEL Order Specific Question: Release to patient Answer: Immediate ??? LIPID PROFILE Order Specific Question: Release to patient Answer: Immediate ??? TSH HI LOW REFLEX FREE T4 Order Specific Question: Release to patient Answer: Immediate ??? PROSTATE SPECIFIC ANTIGEN SCREEN Order Specific Question: Release to patient Answer: Immediate ??? CBC WITH DIFFERENTIAL Order Specific Question: Release to patient Answer: Immediate ??? AMB REFERRAL TO MED NUTRITION THERAPY Standing Status: Standing Number of Occurrences: 5 Standing Expiration Date: 09/17/2024 Referral Priority: Routine Referral Type: Other Medical Referral Reason: Specialty Services Required Number of Visits Requested: 5 ??? AMB REFERRAL TO DIABETES SELF-MGT EDUCATION/TRAINING Standing Status: Standing Number of Occurrences: 5 Standing Expiration Date: 09/17/2024 Referral Priority: Routine Referral Type: Other Medical Referral Reason: Specialty Services Required Number of Visits Requested: 5 ??? HEMOGLOBIN A1C - POINT OF CARE (AMB) Order Specific Question: Release to patient Answer: Immediate ??? albuterol HFA (Proventil; Ventolin; Proair) 108 (90 Base) MCG/ACT inhaler Sig: Inhale 1 (one) puff to 2 (two) puffs by mouth every 6 hours as needed for Shortness of Breath,Wheezing or Cough Dispense: 18 g Refill: 0 May substitute any brand of albuterol inhaler based on insurance/patient preference unless BELINDA selected. ??? metFORMIN (Glucophage) 500 MG tablet Sig: Take 1 (one) tablet by mouth once daily for 14 days, THEN 1 (one) tablet 2 times daily with morning and evening meal for 45 days. Dispense: 104 tablet Refill: 0 ??? losartan (Cozaar) 50 MG tablet Sig: Take 1 (one) tablet by mouth once daily Dispense: 60 tablet Refill: 0 ICD-10-CM 1. Essential hypertension I10 2. Coronary artery disease involving coronary bypass graft of menominee heart without angina pectoris I25.810 LIPID PROFILE 3. S/P CABG x 3 Z95.1 4. Hyperlipidemia E78.5 LIPID PROFILE 5. Coronary artery disease without angina pectoris, unspecified vessel or lesion type, unspecified whether menominee or transplanted heart I25.10 6. Chronic obstructive pulmonary disease J44.9 albuterol HFA (Proventil; Ventolin; Proair) 108 (90 Base) MCG/ACT inhaler 7. MONTY (obstructive sleep apnea) G47.33 8. BMI 39.0-39.9,adult Z68.39 AMB REFERRAL TO MED NUTRITION THERAPY 9. Controlled type 2 diabetes mellitus without complication, without long-term current use of insulin ([facility]) E11.9 HEMOGLOBIN A1C - POINT OF CARE (AMB) MICROALB/CREAT RATIO URINE RANDOM PANEL HM DIABETES FOOT EXAM COMPREHENSIVE METABOLIC PANEL AMB REFERRAL TO MED NUTRITION THERAPY AMB REFERRAL TO DIABETES SELF-MGT EDUCATION/TRAINING 10. Urinary frequency R35.0 URINALYSIS REFLEX MICROSCOPIC REFLEX CULTURE PROSTATE SPECIFIC ANTIGEN SCREEN 11. Screening for thyroid disorder Z13.29 TSH HI LOW REFLEX FREE T4 12. Prostate cancer screening Z12.5 PROSTATE SPECIFIC ANTIGEN SCREEN 13. Healthcare maintenance Z00.00 COMPREHENSIVE METABOLIC PANEL CBC WITH DIFFERENTIAL 14. Medication monitoring encounter Z51.81 COMPREHENSIVE METABOLIC PANEL CBC WITH DIFFERENTIAL 15. Need for COVID-19 vaccine Z23 COVID PFIZER 12+YR 30MCG/0.3ML 16. Need for prophylactic vaccination and inoculation against influenza Z23 FLU VACCINE 4VALENT SPLIT *P-FREE 0.5ML IM (FLUARIX/FLULAVAL) 1. Patient is overdue for follow up. Discussed importance of making it to all follow up appointments, close monitoring of blood sugars/blood pressures at home, and taking all medications as prescribed. 2. As patient has been out of most of his medications for several months, will start patient on only a few medications at a time and increase medication doses as tolerated. 3. Patient blood pressure at today's office visit is elevated--he denies any related symptoms, physical exam negative for any acute/concerning findings. Discussed restarting blood pressure medication(increase as tolerated), keep a log of readings, and notify PCP office accordingly. ER precautions discussed. 4. Reminded patient to follow up with cardiology (referral order previously placed); provided contact info on after visit summary. 5. Referrals placed for department specialist and drivability technician. 6. Obtain overdue/screening lab work and urinalysis (patient report of urinary frequency) as soon as possible--await results. 7. Covid and Flu vaccines administered today. Patient tolerated well. 8. Patient instructed to notify PCP office with any questions/concerns/related side effects. 9. Follow up in 6-8 weeks. Sooner/additional appointment can be made if needed (pending clinical course, above readings). Patient advised to notify office with any additional questions/concerns or persistent/worsening symptoms. ER precautions discussed. WILLIE Pearl 09/17/2023 READY WORKER documented in this encounter Plan of Treatment Upcoming Encounters Date Type Department Care Team (Late st Contact Info) Description 10/20/2024 8:00 AM MAKE READY WORKER Office Visit [facility] - Family Medicine [address] [place] [phone] Kiana Cole MD [address] [place] [address] 11/28/2024 9:00 AM MAKE READY WORKER Office Visit [facility] - Neurology [address] [facility] [facility] [place] [id number] Aline Finch MD [address] [facility] [place] [address] 02/10/2025 10:00 AM CDT Office Visit [facility] - Cardiology [address] [facility] [facility] [place] [phone] Curly Lay MD [address] [place] [address] Scheduled Orders Name Type Priority Associated Diagnoses Orde r Schedule MICROALB/CREAT RATIO URINE RANDOM PANEL Lab Routine Controlled type 2 diabetes mellitus without complication, without long-term current use of insulin (HCC) Ordered: 09/17/2023 URINALYSIS REFLEX MICROSCOPIC REFLEX CULTURE Lab Routine Urinary frequency Ordered: 09/17/2023 COMPREHENSIVE METABOLIC PANEL Lab Routine Controlled type 2 diabetes mellitus without complication, without long-term current use of insulin (HCC) Healthcare maintenance Medication monitoring encounter Ordered: 09/17/2023 LIPID PROFILE Lab Routine Coronary artery disease involving coronary bypass graft of menominee heart without angina pectoris Hyperlipidemia Ordered: 09/17/2023 TSH HI LOW REFLEX FREE T4 Lab Routine Screening for thyroid disorder Ordered: 09/17/2023 PROSTATE SPECIFIC ANTIGEN SCREEN Lab Routine Urinary frequency Prostate cancer screening Ordered: 09/17/2023 CBC WITH DIFFERENTIAL Lab Routine Healthcare maintenance Medication monitoring encounter Ordered: 09/17/2023 Scheduled Referrals Name Type Priority Associated Diagnoses Order Schedule AMB REFERRAL TO MED NUTRITION THERAPY Outpatient Referral Routine Controlled type 2 diabetes mellitus without complication, without long-term current use of insulin (HCC) BMI 39.0-39.9,adult 5 Occurrences starting 09/17/2023 until 09/17/2024 AMB REFERRAL TO DIABETES SELF-MGT EDUCATION/TRAINING Outpatient Referral Routine Controlled type 2 diabetes mellitus without complication, without long-term current use of insulin (HCC) 5 Occurrences starting 09/17/2023 until 09/17/2024 documented as of this encounter Procedures Procedure Name Priority Date/Time Associated Diagnosis Comments HEMOGLOBIN A1C - POINT OF CARE (AMB) Routine 09/17/2023 1:30 PM MAKE READY WORKER Controlled type 2 diabetes mellitus without complication, without long-term current use of insulin (HCC) documented in this encounter Results * HEMOGLOBIN A1C - POINT OF CARE (AMB) (09/17/2023 1:30 PM MAKE READY WORKER) Hemoglobin A1c POCT 6.5 % [facility] Expiration Date 04/03/2025 [facility] Lot # [id number] [facility] WE[facility] TER IM QC Verified Yes Yes [facility] B[facility] Blood BLOOD SPECIMEN / Unknown 09/17/2023 1:30 PM MAKE READY WORKER Radha Gonzalez [place] ROLL OPERATOR-LIBRARY DIRECTOR LAB - POINT OF CARE ORDERABLES YANDYG HAGEN [address] [facility], [place] [address], [facility] [phone] documented in this encounter Visit Diagnoses Diagnosis Essential hypertension- Primary Coronary artery disease involving coronary bypass graft of [place] heart without angina pectoris S/P CABG x 3 Postsurgical aortocoronary bypass status Hyperlipidemia Coronary artery disease without angina pectoris, unspecified vessel or lesion type, unspecified whether [place] or transplanted heart Chronic obstructive pulmonary disease MONTY (obstructive sleep apnea) Obstructive sleep apnea (adult) (pediatric) BMI 39.0-39.9,adult Body Mass Index 39.0-39.9, adult Controlled type 2 diabetes mellitus without complication, without long-term current use of insulin (HCC) Urinary frequency Screening for thyroid disorder Prostate cancer screening Special screening for malignant neoplasm of prostate Healthcare maintenance Routine general medical examination at a health care facility Medication monitoring encounter Encounter for therapeutic drug monitoring Need for COVID-19 vaccine Need for prophylactic vaccination and inoculation against influenza Acute hypoxemic respiratory failure (HCC) Type 2 diabetes mellitus with other circulatory complication, without long-term current use of insulin (HCC) documented in this encounter Care Teams Wafer Line Worker Relationship Specialty Start Date End Date Sylvain Daniels MD PCP - General Family Medicine 05/10/22 02/14/24 documented as of this encounter
--- OUTSIDE RECORDS SUMMARY | 2024-10-11 19:44 | XMS_ITS | Encounter Summary ---
Author Organization [facility] Address [address] [facility] [place] [address] Care Team Providers Care Computational Physicist Name Role Phone Sylvain Daniels MD Primary Care Provider [phone] Reason for Visit * Reason Comments Alcohol intoxication Found skilled nursing out o f car, unable to walk. Vodka a lot . Denies any complaints. Encounter Details Date Type Department Care Team (Late st Contact Info) Description 10/17/2022 2:29 AM LEGAL WRITING PROFESSOR - 10/17/2022 3:38 AM LEGAL WRITING PROFESSOR Emergency ER at [address] [address] Discharge Disposition: Left Against Medical Advice/Discontinued Care Social History Tobacco Use Types Packs/Day [...] Coronavirus/COVID-19? No / Unsure 09/25/2022 9:59 AM LEGAL WRITING PROFESSOR documented as of this encounter Last Filed Vital Signs Vital Sign Reading Time Taken Comments Blood Pressure 152/94 10/17/2022 2:27 AM LEGAL WRITING PROFESSOR Pulse 90 10/17/2022 2:27 AM LEGAL WRITING PROFESSOR Temperature 36.2 ??C (97.2 ??F) 10/17/2022 2:27 AM CS T Respiratory Rate 19 10/17/2022 2:27 AM LEGAL WRITING PROFESSOR Oxygen Saturation 96% 10/17/2022 2:27 AM LEGAL WRITING PROFESSOR Inhaled Oxygen Concentration - - Weight 140.6 kg (310 lb) 10/17/2022 2:27 AM LEGAL WRITING PROFESSOR Height 193 cm (6' 4 ) 10/17/2022 2:27 AM LEGAL WRITING PROFESSOR Body Mass Index 37.73 10/17/2022 2:27 AM LEGAL WRITING PROFESSOR documented in this encounter Functional Status Functional [...] No 01/30/2018 documented as of this encounter Medications at Time of Discharge Medication Sig Dispensed Refills Start Date End Date albuterol HFA (Proventil; Ventolin; Proair) 108 (90 Base) MCG/ACT inhalerIndications:Mild intermittent asthma with acute exacerbation (HCC) Inhale 2 (two) puffs by mouth every 4 hours as needed for Wheezing 18 g 07/28/2022 05/07/2023 amLODIPine (NORVASC) 10 MG tabletIndications:Essen tial hypertension Take 1 (one) tablet by mouth at bedtime 90 tablet 1 05/10/2022 01/23/2024 Aspirin 81 MG Take 1 (one) tablet by mouth once daily 01/23/2024 atorvastatin (LIPITOR) 80 MG tabletIndications:Essen tial hypertension,Type 2 diabetes mellitus with other circulatory complication, without long-term current use of insulin (HCC),S/P CABG x 3 Take 1 (one) tablet by mouth at bedtime 90 tablet 1 05/10/2022 02/15/2024 Blood Glucose Monitoring Suppl (ONE TOUCH ULTRA MINI) W/DEVICE KIT Check blood sugars twice daily 1 kit 03/19/2018 02/15/2024 blood glucose test strip Use 1 strip 2 times daily 100 strip 11 03/19/2018 02/15/2024 carvedilol (COREG) 25 MG tabletIndications:S/P CABG x 3 Take 1 (one) tablet by mouth 2 times daily with morning and evening meal 90 tablet 1 05/10/2022 01/23/2024 CPAP Use as directed 02/15/2024 dextromethorphan-guaiFE Nesin (Robitussin DM) 10-100 MG/5ML syrup Take 5-10 mL by mouth every 4 hours as needed for Cough 354 mL 07/28/2022 05/07/2023 Psyeuiaajab-Iiwizmozw-D ilant (Trelegy Ellipta) 100-62.5-25 MCG/INHIndications:Obst ructive airway disease (HCC) Inhale 1 (one) puff by mouth once daily 1 Each 3 08/03/2022 05/07/2023 glipiZIDE CR 24hr (GLIPIZIDE XL) 5 MG tabletIndications:Type 2 diabetes mellitus with other circulatory complication, without long-term current use of insulin (HCC) Take 1 (one) tablet by mouth once daily 90 tablet 1 05/10/2022 01/23/2024 losartan (COZAAR) 100 MG tabletIndications:Essen tial hypertension Take 1 (one) tablet by mouth once daily 90 tablet 1 05/10/2022 09/18/2023 metFORMIN ER 24hr (GLUCOPHAGE XR) 500 MG tabletIndications:Type 2 diabetes mellitus with other circulatory complication, without long-term current use of insulin (HCC) Take 2 (two) tablets by mouth 2 times daily 180 tablet 1 05/10/2022 09/18/2023 naproxen (NAPROSYN) 250 MG tablet Take 1 (one) tablet by mouth 2 times daily 20 tablet 02/20/2021 05/07/2023 nitroGLYCERIN (NITROSTAT) 0.4 MG tablet Dissolve 1 tablet under the tongue every 5 minutes as needed for Angina 20 tablet 1 09/18/2018 01/23/2024 One Touch Delica Lancets Use 2 times daily Check blood sugars twice daily. 100 Each 11 03/19/2018 02/15/2024 sildenafil (REVATIO) 20 MG tabletIndications:Erect ile dysfunction, unspecified erectile dysfunction type Take 2 (two) tablets to 5 (five) tablets by mouth once daily as needed This medicine cannot be combined with nitroglycerin. 30 tablet 3 11/22/2021 05/07/2023 spironolactone (ALDACTONE) 25 MG tabletIndications:Essen tial hypertension Take 1 (one) tablet by mouth once daily 30 tablet 5 02/24/2021 01/23/2024 documented as of this encounter ED Notes * Iris Matthews RN - 10/17/2022 3:37 AM CST Patient A&OX4, ambulatory with a steady gait, speech clear. Friend here to pick him up. L WRITING PROFESSOR documented in this encounter Plan of Treatment Upcoming Encounters Date Type Department Care Team (Late st Contact Info) Description 10/20/2024 8:00 AM LEGAL WRITING PROFESSOR Office Visit [facility] - Family Medicine [address] [facility] [address] [place] [phone] Kiana Cole MD [address] [place] [address] 11/28/2024 9:00 AM LEGAL WRITING PROFESSOR Office Visit [facility] - Neurology [address] [facility] [place] [address] Aline Finch MD [address] [facility] [place] [address] 02/10/2025 10:00 AM CDT Office Visit [facility] - Cardiology [address] [facility], [address] [address] Curly Lay MD [address] [phone] documented as of this encounter Visit Diagnoses Not on filedocumented in this encounter Care Teams Computational Physicist Relationship Specialty Start Date End Date Sylvain Daniels MD PCP - General Family Medicine 05/10/22 02/14/24 documented as of this encounter
--- OUTSIDE RECORDS SUMMARY | 2024-10-11 19:45 | XMS_ITS | Encounter Summary ---
Author Organization [facility] Address [address] [place] [address] Care Team Providers Care Rotary Derrick Operator Name Role Phone Lisy Olmedo MD Primary Care Provide r Reason for Visit * Reason Comments Hypertension Diabetes Mellitus Encounter Details Date Type Department Care Team (Late st Contact Info) Description 05/17/2020 11:30 AM CDT Office Visit [facility] Medicine [address] [address] Lisy Olmedo MD [address] [place] [address] Type 2 diabetes mellitus with other circulatory complication, without long-term current use of insulin (HCC) (Primary Dx); Essential hypertension; S/P CABG x 3; Colon cancer screening; Screen for STD (sexually transmitted disease); Need for hepatitis C screening test; Need for Tdap vaccination; Decreased appetite Social History Tobacco Use Types Packs/Day Years Used Date Smoking Tobacco: Former Cigars Smokeless Tobacco: Never Comments:3-4 times / month Alcohol Use Standard Drinks/Week Comments Yes 7 (1 standard drink = 0.6 oz pur e alcohol) Sex and Gender Information Value Date Recorded Sex Assigned at Not on file Gender Identity Not on file Sexual Orientation Not on file documented as of this encounter Last Filed Vital Signs Vital Sign Reading Time Taken Comments Blood Pressure 150/88 05/17/2020 11:43 AM CDT Pulse 86 05/17/2020 11:43 AM CDT Temperature 36.2 ??C (97.1 ??F) 05/17/2020 11:43 AM C DT Respiratory Rate - - Oxygen Saturation 98% 05/17/2020 11:43 AM CDT Inhaled Oxygen Concentration - - Weight 143 kg (315 lb 3.2 oz) 05/17/2020 11:43 A M CDT Height 193 cm (6' 4 ) 05/17/2020 11:43 AM CDT Body Mass Index 38.37 05/17/2020 11:43 AM CDT documented in this encounter Functional [...] as of this encounter Progress Notes * Richa Steele - 05/17/2020 3:04 PM CDT PROGRESS NOTE Chief Complaint:Yaya Vazquez is a 59 year old male patient, here for: HTN, DM2 f/u Chief Complaint Patient presents with ??? Hypertension ??? Diabetes Mellitus HPI: Mr. Vazquez presents for f/u for DM2 and HTN. PMHx significant for CAD, essential HTN, DM, Obesity. He reports that he checks his blood glucose few times a week sometimes fasting sometimes postprandial; around 140-144. He wears shoes at home. He takes meds as prescribed. He has recently lacked appetite and gone multiple days without food. He reports that when he does eat it is a struggle but hesays it was a struggle to eat 3 eggs, 2 pieces of toast and 3 slices of prabhakar yesterday. No episodes of dizziness, shakiness, sweating, feeling hungry, irritable or faint. He does not exercise. 3-4 EtOH drinks/wk. He does not sleep well and +snoring. Denies headaches, daytime sleepiness or trouble concentrating. Reports that last eye exam was one year ago and he plans to schedule another one soon. Patient Active Problem List: CAD (coronary artery disease) Essential hypertension DM (diabetes mellitus) S/P CABG x 3 Wound of sternal region Superficial postoperative wound infection Other chest pain Coronary artery disease involving [place] heart with angina pectoris Controlled type 2 diabetes mellitus without complication, without long-term current use of insulin Obesity (BMI 30-39.9) Outpatient Medications Prior to Visit Medication Sig Dispense Refill ??? albuterol HFA (PROVENTIL;VENTOLIN;PROAIR) 108 (90 Base) MCG/ACT inhaler Inhale 2 puffs by mouthevery 4 hours as needed for Wheezing 1 Inhaler 5 ??? amLODIPine (NORVASC) 10 MG tablet Take 1 tablet by mouth at bedtime 30 tablet 5 ??? Aspirin 81 MG Take 81 mg by mouth once daily ??? atorvastatin (LIPITOR) 80 MG tablet Take 1 tablet by mouth at bedtime 30 tablet 5 ??? Blood Glucose Monitoring Suppl (ONE TOUCH ULTRA MINI) W/DEVICE KIT Check blood sugars twice daily 1 kit 0 ??? blood glucose test strip Use 1 strip 2 times daily 100 strip 11 ??? carvedilol (COREG) 25 MG tablet Take 1 tablet by mouth 2 times daily with morning and evening meal 60 tablet 5 ??? Dextromethorphan-guaiFENesin (CORICIDIN HBP CONGESTION/COUGH) 10-200 MG Take 1 tablet by mouth 4 times daily as needed (Patient not taking: Reported on 05/17/2020) 28 capsule 0 ??? furosemide (LASIX) 40 MG tablet Take 1 tablet by mouth once daily 30 tablet 5 ??? glipiZIDE CR 24hr (GLIPIZIDE XL) 5 MG tablet Take 1 tablet by mouth once daily 30 tablet 5 ??? losartan (COZAAR) 100 MG tablet Take 1 tablet by mouth once daily 30 tablet 5 ??? metFORMIN ER 24hr (GLUCOPHAGE XR) 500 MG tablet Take 4 tablets by mouth daily with dinner 120 tablet 5 ??? nitroGLYCERIN (NITROSTAT) 0.4 MG tablet Dissolve 1 tablet under the tongue every 5 minutes as needed for Angina 20 tablet 1 ??? One Touch Delica Lancets Use 2 times daily Check blood sugars twice daily. 100 Each 11 ??? sildenafil (REVATIO) 20 MG tablet Take 2-5 tablets by mouth 5 times daily as needed 30 tablet 5 No facility-administered medications prior to visit. Review of Systems ROS: Review of Systems Constitutional: Negative for chills, diaphoresis, fever, malaise/fatigue and weight loss. HENT: Negative for congestion, ear pain, hearing loss, nosebleeds, sinus pain and sore throat. Eyes: Negative for blurred vision, double vision and pain. Respiratory: Negative for cough, hemoptysis, sputum production, shortness of breath, wheezing and stridor. Cardiovascular: Negative for chest pain, palpitations and leg swelling. Gastrointestinal: Positive for blood in stool. Negative for abdominal pain, constipation, diarrhea,heartburn, nausea and vomiting. Bright red blood in toilet bowl and on tissue Genitourinary: Negative for dysuria, frequency, hematuria and urgency. Musculoskeletal: Negative for back pain, joint pain, myalgias and neck pain. Skin: Negative for itching and rash. Neurological: Positive for sensory change. Negative for dizziness, tremors, seizures, loss of consciousness, weakness and headaches. feels like foot in cement Endo/Heme/Allergies: Negative for polydipsia. Does not bruise/bleed easily. Psychiatric/Behavioral: Negative for depression and substance abuse. The patient is not nervous/anxious. PFSH, other pertinent history: Allergies Allergen Reactions ??? Lisinopril Angioedema ??? Pcn [Penicillins] Swelling eyes swelled shut 50 years ago ??? Penicillin V Rash Social History Smoking status: Former Smoker Packs/day: 0.00 Years: 0.00 Types: Cigars Smokeless tobacco: Never Used Comment: 3-4 times / month Alcohol use: Yes 7.0 - 14.0 standard drinks/week Standard drinks or equivalent: 7 - 14 per week Drug use: No Sexual activity: Yes EXAM BP 150/88 (BP SITE: LEFT ARM, BP POSITION: SITTING, BP CUFF SIZE: 12) Pulse 86 Temp 97.1 ??F (36.2 ??C) Ht 6' 4 (1.93 m) Wt (!) 315 lb 3.2 oz (143 kg) SpO2 98% BMI 38.37 kg/m?? Height: 6' 4 (193 cm) Physical Exam Constitutional: He is oriented to person, place, and time and well-developed, well-nourished, and in no distress. HENT: Head: Normocephalic. Nose: Nose normal. Mouth/Throat: Oropharynx is clear and moist. Left tongue atrophy Eyes: Pupils are equal, round, and reactive to light. Neck: Neck supple. No JVD present. No tracheal deviation present. No thyromegaly present. Cardiovascular: Normal rate, regular rhythm, normal heart sounds and intact distal pulses. No murmur heard. Pulmonary/Chest: Effort normal and breath sounds normal. No stridor. He has no wheezes. Abdominal: Soft. Bowel sounds are normal. There is no abdominal tenderness. Musculoskeletal: General: No edema. Lymphadenopathy: He has no cervical adenopathy. Neurological: He is alert and oriented to person, place, and time. No cranial nerve deficit. Monofilament exam normal Skin: Skin is warm, dry and intact. ASSESSMENT: 1. Type 2 diabetes mellitus Fasting glc may be high at 140-144 but A1c well within target at 5.2% Monofilament exam normal and pt does not report neuropathic pain 2. Essential hypertension BP is above JNC 8 guideline target (140/80). Pt reports he has not been regularly taking furesomide. 3. S/P CABG x3 4. Colon cancer screening Pt overdue for colonoscopy + red flag signs of blood in stool Hemorroids v anal fissue v colorectal malignancy 5. Screen for STD 6. Hep C screen 7. TDAP vaccine 8. Decreased appetite Metformin v. Hypothyroidism v. Colorectal malignancy ICD-10-CM 1. Type 2 diabetes mellitus with other circulatory complication, without long- term current use of insulin E11.59 HEMOGLOBIN A1C - POINT OF CARE (AMB) [facility] LIPID PROFILE MICROALB/CREAT RATIO URINE RANDOM PANEL 2. Essential hypertension I10 3. S/P CABG x 3 Z95.1 4. Colon cancer screening Z12.11 ENDOSCOPY, COLON, SCREENING 5. Screen for STD (sexually transmitted disease) Z11.3 HIV-1 HIV-2 ANTIBODY + HIV P24 AG PANEL RPR W REFLEX TO TITER+CONFIRM CHLAMYDIA + GC AMPLIFIED PROBE 6. Need for hepatitis C screening test Z11.59 HEPATITIS C AB VERIFY RFLXD 7. Need for Tdap vaccination Z23 CANCELED: TDAP VACCINE >7YO IM 8. Decreased appetite R63.0 TSH REFLEX FREE T4 PLAN: 1. Type 2 diabetes mellitus -Check blood glucose more frequently -increase exercise -try to not skip meals -lipid panel -HgA1c 2. Essential hypertension -trial taking Furosemid regulary -lipid panel 3. S/P CABG x3 4. Colon cancer screening -Colonoscopy HIMANSHU -TSH/Free T4 to r/o loss of appetite from thyroid pathology 5. Screen for STD -NAAT to screen for GC, CT -RPR -HIV screen 6. Hep C screen -Hep C AB 7. TDAP vaccine 8. Decreased appetite -TSH/Free T4 -Colonoscopy Orders Placed This Encounter ??? CHLAMYDIA + GC AMPLIFIED PROBE ??? HEPATITIS C AB VERIFY RFLXD ??? HIV-1 HIV-2 ANTIBODY + HIV P24 AG PANEL ??? LIPID PROFILE ??? RPR W REFLEX TO TITER+CONFIRM ??? MICROALB/CREAT RATIO URINE RANDOM PANEL ??? TSH REFLEX FREE T4 ??? HEMOGLOBIN A1C - POINT OF CARE (AMB) [facility] ??? ENDOSCOPY, COLON, SCREENING Standing Status: Future Standing Expiration Date: 05/17/2021 Medications Discontinued During This Encounter Medication Reason ??? Dextromethorphan-guaiFENesin (CORICIDIN HBP CONGESTION/COUGH) 10-200 MG Include AVS Current Outpatient Medications Medication Sig Dispense Refill ??? albuterol HFA (PROVENTIL;VENTOLIN;PROAIR) 108 (90 Base) MCG/ACT inhaler Inhale 2 puffs by mouthevery 4 hours as needed for Wheezing 1 Inhaler 5 ??? amLODIPine (NORVASC) 10 MG tablet Take 1 tablet by mouth at bedtime 30 tablet 5 ??? Aspirin 81 MG Take 81 mg by mouth once daily ??? atorvastatin (LIPITOR) 80 MG tablet Take 1 tablet by mouth at bedtime 30 tablet 5 ??? Blood Glucose Monitoring Suppl (ONE TOUCH ULTRA MINI) W/DEVICE KIT Check blood sugars twice daily 1 kit 0 ??? blood glucose test strip Use 1 strip 2 times daily 100 strip 11 ??? carvedilol (COREG) 25 MG tablet Take 1 tablet by mouth 2 times daily with morning and evening meal 60 tablet 5 ??? furosemide (LASIX) 40 MG tablet Take 1 tablet by mouth once daily 30 tablet 5 ??? glipiZIDE CR 24hr (GLIPIZIDE XL) 5 MG tablet Take 1 tablet by mouth once daily 30 tablet 5 ??? losartan (COZAAR) 100 MG tablet Take 1 tablet by mouth once daily 30 tablet 5 ??? metFORMIN ER 24hr (GLUCOPHAGE XR) 500 MG tablet Take 4 tablets by mouth daily with dinner 120 tablet 5 ??? nitroGLYCERIN (NITROSTAT) 0.4 MG tablet Dissolve 1 tablet under the tongue every 5 minutes as needed for Angina 20 tablet 1 ??? One Touch Delica Lancets Use 2 times daily Check blood sugars twice daily. 100 Each 11 ??? sildenafil (REVATIO) 20 MG tablet Take 2-5 tablets by mouth 5 times daily as needed 30 tablet 5 No current facility-administered medications for this visit. Richa Steele Associated attestation - Lisy Olmedo MD - 05/17/2020 5:17 PM CDT I have verified the documentation of the medical student including all history, exam, and medical decision-making details. I have personally performed a physical exam and have personally reviewed thedata to support my medical decision-making as outlined in the medical student???s note, and I arrive independently at the same conclusion. Date of Service: 05/17/2020 Attending Physician: Lisy Olmedo MD documented in this encounter Plan of Treatment Upcoming Encounters Date Type Department Care Team (Late st Contact Info) Description 10/20/2024 8:00 AM AIRBRUSH PAINTER Office Visit [facility] - Family Medicine [address] [facility], [facility] [address] [place] [phone] Kiana Cole MD [address] [place], [place] [id number] 11/28/2024 9:00 AM AIRBRUSH PAINTER Office Visit [facility] - Neurology [address] [facility], [facility] [place] [phone] Aline Finch MD [address] [facility] [facility] [place] [address] 02/10/2025 10:00 AM CDT Office Visit [facility] - Cardiology [address] [facility] [place] [address] [place] [address] Curly Lay MD [address] [facility] [address] [place] [address] Scheduled Orders Name Type Priority Associated Diagnoses Orde r Schedule HEPATITIS C AB VERIFY RFLXD Lab Routine Need for hepatitis C screening test Ordered: 05/17/2020 HIV-1 HIV-2 ANTIBODY + HIV P24 AG PANEL Lab Routine Screen for STD (sexually transmitted disease) Ordered: 05/17/2020 LIPID PROFILE Lab Routine Type 2 diabetes mellitus with other circulatory complication, without long-term current use of insulin (HCC) Ordered: 05/17/2020 RPR W REFLEX TO TITER+CONFIRM Lab Routine Screen for STD (sexually transmitted disease) Ordered: 05/17/2020 CHLAMYDIA + GC AMPLIFIED PROBE Microbiology Routine Screen for STD (sexually transmitted disease) Ordered: 05/17/2020 MICROALB/CREAT RATIO URINE RANDOM PANEL Lab Routine Type 2 diabetes mellitus with other circulatory complication, without long-term current use of insulin (HCC) Ordered: 05/17/2020 TSH REFLEX FREE T4 Lab Routine Decreased appetite Ordered: 05/17/2020 documented as of this encounter Procedures Procedure Name Priority Date/Time Associated Diagnosis Comments HEMOGLOBIN A1C - POINT OF CARE (AMB) [facility] Routine 05/17/2020 Type 2 diabetes mellitus with other circulatory complication, without long-term current use of insulin (HCC) documented in this encounter Results * HEMOGLOBIN A1C - POINT OF CARE (AMB) [facility] (05/17/2020) Hemoglobin A1c POCT 5.2 BLOOD SPECIMEN / Unknown 05/17/2020 Lisy Olmedo MD LAB - POINT O F CARE ORDERABLES documented in this encounter Visit Diagnoses Diagnosis Type 2 diabetes mellitus with other circulatory complication, without long-term current use of insulin (HCC)- Primary Essential hypertension S/P CABG x 3 Postsurgical aortocoronary bypass status Colon cancer screening Special screening for malignant neoplasms, colon Screen for STD (sexually transmitted disease) Screening examination for venereal disease Need for hepatitis C screening test Special screening examination for other specified viral diseases Need for Tdap vaccination Need for prophylactic vaccination with combined [id number] (DTP) vaccine Decreased appetite Anorexia documented in this encounter Care Teams Rotary Derrick Operator Relationship Specialty Start Date End Date Lisy Olmedo MD PCP - General 04/20/09 05/09/22 documented as of this encounter
--- OUTSIDE RECORDS SUMMARY | 2024-10-11 19:45 | XMS_ITS | Encounter Summary ---
Author Organization [facility] Address [address] [facility] [place] [address] Care Team Providers Care Plant Maintenance Supervisor Name Role Phone Sylvain Daniels MD Primary Care Provider +- [phone] Sylvain Daniels MD Unavailable [phone] Encounter Details Date Type Department Care Team (Late st Contact Info) Description 08/30/2022 Patient Outreach [facility] - Care Coordination [address] [place] [phone] Tarah Hager Social History Tobacco Use Types [...] * Telephone Encounter - Tarah Hager - 08/30/2022 9:21 AM CST 1st attempt, VM full mychart sent IBLE FURNACE TENDER documented in this encounter Plan of Treatment Upcoming Encounters Date Type Department Care Team (Late st Contact Info) Description 10/20/2024 8:00 AM CRUCIBLE FURNACE TENDER Office Visit [facility] - Family Medicine [address] [facility], [facility] [address] [place] [phone] Kiana Cole MD [address] [place] [address] 11/28/2024 9:00 AM CRUCIBLE FURNACE TENDER Office Visit [facility] - Neurology [address] [facility], [place] [address] Aline Finch MD [address] [facility] [place] [place] [address] 02/10/2025 10:00 AM CDT Office Visit [facility] - Cardiology [address] [facility], [address] [place] [address] Curly Lay MD [address] [place] [address] documented as of this encounter Visit Diagnoses Not on filedocumented in this encounter Care Teams Plant Maintenance Supervisor Relationship Specialty Start Date End Date Sylvain Daniels MD PCP - General Family Medicine 05/10/22 02/14/24 Sylvain Daniels MD [address] [facility] [phone] PCP - Attributed-[facility] Commercial 05/15/22 10/01/22 documented as of this encounter
--- OUTSIDE RECORDS SUMMARY | 2024-10-11 19:45 | XMS_ITS | Encounter Summary ---
Author Organization [facility] Health Address [address] [facility] [place] [address] Care Team Providers Care Beamer Operator Name Role Phone Lisy Olmedo MD Primary Care Provide r Encounter Details Date Type Department Care Team (Late st Contact Info) Description 09/18/2018 Orders Only [facility] Family and Community Medicine [address] [address] Lisy Olmedo MD [facility] [place] [address] Social History Tobacco Use Types Packs/Day Years [...] Contact Info) Description 10/20/2024 8:00 AM MANAGER SURGICAL Office Visit [facility] - Family Medicine [address] [facility], [facility] 150 [place] [phone] Kiana Cole MD [address] [place] [address] 11/28/2024 9:00 AM MANAGER SURGICAL Office Visit [facility] - Neurology [address] [facility], [place] [address] Aline Finch MD [address] [facility] [place] [address] 02/10/2025 10:00 AM CDT Office Visit [facility] - Cardiology [address] [facility], [address] [address] Curly Lay MD [address] [address] documented as of this encounter Visit Diagnoses Not on filedocumented in this encounter Care Teams Beamer Operator Relationship Specialty Start Date End Date Lisy Olmedo MD PCP - General 04/20/09 05/09/22 documented as of this encounter
--- OUTSIDE RECORDS SUMMARY | 2024-10-11 19:45 | XMS_ITS | Encounter Summary ---
Author Organization [facility] Health Address [address] [facility] [place] [address] Care Team Providers Care Shadowgraph Operator Name Role Phone Lisy Olmedo MD Primary Care Provide r Reason for Visit * Reason Comments Hypertension Diabetes Encounter Details Date Type Department Care Team (Latest Contact Info) Description 01/23/2019 10:50 AM CDT Office Visit [facility] [address] [address] Lisy Olmedo MD [facility]6 [place] [address] Controlled type 2 diabetes mellitus without complication, without long-term current use of insulin (HCC) (Primary Dx); Essential hypertension; Hyperlipidemia, unspecified hyperlipidemia type; S/P CABG x 3 Social History Tobacco [...] Reading Time Taken Comments Blood Pressure 120/70 01/23/2019 11:02 AM CDT Pulse 64 01/23/2019 11:02 AM CDT Temperature 36.2 ??C (97.1 ??F) 01/23/2019 11:02 AM C DT Respiratory Rate - - Oxygen Saturation 98% 01/23/2019 11:02 AM CDT Inhaled Oxygen Concentration - - Weight 137 kg (302 lb) 01/23/2019 11:02 AM CDT Height 193 cm (6' 4 ) 01/23/2019 11:02 AM CDT Body Mass Index 36.76 01/23/2019 11:02 AM CDT documented in this encounter Functional [...] as of this encounter Progress Notes * Jose Raul Quinonez - 01/23/2019 11:07 AM CDT Subjective: Patient here for follow-up of HTN and DM. HTN Compliant w/ medications. Tolerating well. Recent addition of Carvedilol by bit welder. BP Readings: does not check at home. States that BP was 200/100s at cardiology appointment last week. Denies CP, SOB, lightheadedness, dizziness, headaches, and blurry vision. Notes some peripheral edema in rt leg. States that he has had this since a vein in that leg was harvested for his bypass procedure. Diet: increased fruits/vegetables, fast food 3-4x week, no added salt at home Exercise: not exercising right now DM On Glipizide and Metformin. Tolerating well Podiatry: none BS Readings: does not check often Shoes in home: yes Eye exam: September 2018 HLD Tolerating statin well. No myalgias. Current Outpatient Prescriptions on File Prior to Visit Medication Sig Dispense Refill ??? albuterol HFA (PROVENTIL;VENTOLIN;PROAIR) 108 (90 BASE) MCG/ACT inhaler Inhale 2 puffs by mouthevery 4 hours as needed for Wheezing 1 Inhaler 1 ??? amLODIPine (NORVASC) 10 MG tablet Take 1 tablet by mouth at bedtime 90 tablet 3 ??? Aspirin 81 MG Take 81 mg [...] mouth once daily 30 tablet 5 ??? GLIPIZIDE XL 5 MG tablet TAKE 1 TABLET BY MOUTH ONCE DAILY 90 tablet 0 ??? losartan (COZAAR) 100 MG tablet Take 1 tablet by mouth once daily 30 tablet 5 ??? metFORMIN (GLUCOPHAGE) 1000 MG tablet Take 1 tablet by mouth 2 times daily with morning and evening meal 180 tablet 0 ??? nitroGLYCERIN (NITROSTAT) 0.4 MG tablet Dissolve 1 tablet under the tongue every 5 minutes as needed for Angina 20 tablet 1 ??? One Touch Delica Lancets Use 2 times daily Check blood sugars twice daily. 100 Each 11 ??? sildenafil (REVATIO) 20 MG tablet Take 2-5 tablets by mouth 5 times daily as needed 30 tablet 2 No current facility-administered medications on file prior to visit. Review of Systems Pertinent items are noted in HPI. Objective: Vitals: 01/23/19 1102 BP: 120/70 Pulse: 64 Temp: 97.1 ??F (36.2 ??C) SpO2: 98% Weight: (!) 302 lb (137 kg) Height: 6' 4 (1.93 m) General : alert, cooperative, no distress Eyes: sclera and conjunctiva clear, EOMI Mouth: oropharynx is clear, non-erythematous Neck: nontender, no carotid bruit, no JVD, thyroid nonenlarged Lung: clear to auscultation bilaterally Heart: regular rate and rhythm, S1, S2 normal, no murmur, click, rub or gallop Abdomen: soft, non-tender; bowel sounds normal; no masses, no organomegaly Extremities: extremities normal, atraumatic, no cyanosis. 2+ pitting edema in RLE, no pitting edemain LLE. No calf tenderness bilaterally. DPs palpable bilaterally. Feet: monofilament exam (-) bilaterally Labs: HgbA1C: 5.6% Assessment & Plan: Controlled Type 2 DM w/o complication, without long-term current use of insulin - HgbA1c of 5.6% today. Improved from 6.6% at last visit. No peripheral neuropathy. Following with ophthalmology - no medication changes - recommend low carb diet and 150 minutes of exercise/week Essential Hypertension - well controlled, BP normal in clinic today - no medication changes - recommend low salt diet, fast food avoidance, and 5 servings of fruits/vegetables per day - recommend 150 minutes of exercise/week Hyperlipidemia, unspecified type - pt on atorvastatin 80mg qDaily. Denies myalgias - no medication changes S/p CABG x3 - seen by cardio last week. No CP or SOB today. With peripheral edema in rt leg secondary to vein harvesting - continue following with cardiology Follow up in 6 months or sooner as needed. Jose Raul Quinonez MS3 Associated attestation - Lisy Olmedo MD - 01/23/2019 1:06 PM CDT I have verified the documentation of the medical student including all history, exam, and medical decision-making details. I have personally performed a physical exam and have personally reviewed thedata to support my medical decision-making as outlined in the medical student???s note, and I arrive independently at the same conclusion. Date of Service: 01/23/19 Attending Physician: Lisy Olmedo MD documented in this encounter Plan of Treatment Upcoming Encounters Date Type Department Care Team (Late st Contact Info) Description 10/20/2024 8:00 AM CLAM PICKER Office Visit [facility] - Family Medicine [address] [address] [place] [address] Kiana Cole MD [address] [place] [address] 11/28/2024 9:00 AM CLAM PICKER Office Visit [facility] - Neurology [address] [facility], [place] [address] Aline Finch MD [address] [facility] [place] [address] 02/10/2025 10:00 AM CDT Office Visit [facility] - Cardiology [address] [facility], [facility] [address] [place] [phone] Curly Lay MD [address] [facility] [address] [place] [address] documented as of this encounter Procedures Procedure Name Priority Date/Time Associated Diagnosis Comments HEMOGLOBIN A1C - POINT OF CARE (AMB) [facility] Routine 01/23/2019 Controlled type 2 diabetes mellitus without complication, without long-term current use of insulin (HCC) documented in this encounter Results * HEMOGLOBIN A1C - POINT OF CARE (AMB) [facility] (01/23/2019) Hemoglobin A1c POCT 5.6 BLOOD SPECIMEN / Unknown 01/23/2019 Lisy Olmedo MD LAB - POINT O F CARE ORDERABLES documented in this encounter Visit Diagnoses Diagnosis Controlled type 2 diabetes mellitus without complication, without long-term current use of insulin (HCC)- Primary Essential hypertension Hyperlipidemia, unspecified hyperlipidemia type S/P CABG x 3 Postsurgical aortocoronary bypass status documented in this encounter Care Teams Shadowgraph Operator Relationship Specialty Start Date End Date Lisy Olmedo MD PCP - General 04/20/09 05/09/22 documented as of this encounter
--- OUTSIDE RECORDS SUMMARY | 2024-10-11 19:45 | XMS_ITS | Encounter Summary ---
Author Organization [facility] Health Address [address] [place] [address] Care Team Providers Care Mine Engineering Supervisor Name Role Phone Lisy Olmedo MD Primary Care Provide r Encounter Details Date Type Department Care Team (Late st Contact Info) Description 12/05/2018 Orders Only [facility] [address] [address] Lisy Olmedo MD [facility]6 [place] [address] Social History Tobacco Use Types Packs/Day Years Used Date Smoking Tobacco: Some Days Cigars Smokeless Tobacco: Never Comments:3-4 times / [...] st Contact Info) Description 10/20/2024 8:00 AM SALES CONSULTANT Office Visit [facility] - Family Medicine [address] [facility], [facility] 150 [place] [phone] Kiana Cole MD [address] [place] [address] 11/28/2024 9:00 AM SALES CONSULTANT Office Visit [facility] - Neurology [address] [facility], [place] [address] Aline Finch MD [address] [facility] [place] [address] 02/10/2025 10:00 AM CDT Office Visit [facility] - Cardiology [address] [facility], [address] [place] [address] Curly Lay MD [address] [address] documented as of this encounter Visit Diagnoses Not on filedocumented in this encounter Care Teams Mine Engineering Supervisor Relationship Specialty Start Date End Date Lisy Olmedo MD PCP - General 04/20/09 05/09/22 documented as of this encounter
--- OUTSIDE RECORDS SUMMARY | 2024-10-11 19:45 | XMS_ITS | Encounter Summary ---
Author Organization [facility] Address [address] [facility] [place] [address] Care Team Providers Care Model Technician Name Role Phone Lisy Olmedo MD Primary Care Provide r Sylvain Daniels MD Primary Care Provider + [phone] None, Physician Primary Care Provider Unavailabl e Sylvain Daniels MD Unavailable [phone] Sylvain Daniels MD Unavailable [phone] Sylvain Daniels MD Unavailable [phone] Sylvain Daniels MD Primary Care Provider + [phone] Kiana Cole MD Primary Care Provider Sean Kyle MD Primary Care Provider [phone] Kiana Cole MD Primary Care Provider Reason for Visit * Reason Onset Date Comments MEDICATION REFILL 12/27/2020 Encounter Details Date Type Department Care Team (Late st Contact Info) Description 12/27/2020 Refill [facility] [address] [facility] [address] [place] [address] Lisy Olmedo MD [address] [place] [id number] MEDICATION REFILL Social History Tobacco Use Types Packs/Day Years Used Date Smoking Tobacco: Never Cigars St arted: 1997 Smokeless Tobacco: Never Comments:3-4 times / month-2 020 says 1x/month Alcohol Use Standard Drinks/Week Comments Yes 7 (1 standard drink = 0.6 oz pur e alcohol) mainly shots AUDIT-C Answer Date Recorded Q1: How often do you have a drink containing alcohol? 4 or more times a week 08/05/2020 Q2: How many drinks containi ng alcohol do you have on a typical day when you are drinking? 1 or 2 0 Frequency of Binge Drinking Not on file 07/16 Overall Financial Resource Strain (CARDIA) Answe r Date Recorded How hard is it for you to pa y for the very basics like food, housing, medical care, and heating? Not hard at all 08/05/2020 Hunger Vital Sign Answer Date Recorded Within the past 12 months, y ou worried that your food would run out before you got the money to buy more. Never true 08/05/20 20 Within the past 12 months, t he food you bought just didn't last and you didn't have money to get more. Never true 08/05/2020 PRAPARE - Transportation Answer Date Re corded [...] encounter Miscellaneous Notes * Telephone Encounter - Latha Díaz - 12/29/2020 4:01 PM CDT Refill Request I called this pt and attempted to make an appt, but pt just started a new job and can't make one inthe next 30 days. He can make one in March. Pt wants to know can we make appt in March and send refills until. Yaya Vazquez YULISSA: 05/17/2020Aug due: 09/16/2020Aug scheduled: LRF: 11/17/2019, 11/17/2019, 11/17/2019, 11/17/2019, 11/17/2019 Qty Disp: 30, 30, 30, 1 inhaler, 120 # of refills: 5, 5, 5, 5, 5 Allergies: Allergies Allergen Reactions ??? Lisinopril Angioedema ??? Pcn [Penicillins] Swelling eyes swelled shut 50 years ago ??? Penicillin V Rash Pended Medication Order: Requested Prescriptions Pending Prescriptions Disp Refills ??? amLODIPine (NORVASC) 10 MG tablet 30 tablet 5 Sig: Take 1 (one) tablet by mouth at bedtime ??? furosemide (LASIX) 40 MG tablet 30 tablet 5 Sig: Take 1 (one) tablet by mouth once daily ??? atorvastatin (LIPITOR) 80 MG tablet 30 tablet 5 Sig: Take 1 (one) tablet by mouth at bedtime ??? albuterol HFA (PROVENTIL;VENTOLIN;PROAIR) 108 (90 Base) MCG/ACT inhaler 1 Inhaler 5 Sig: Inhale 2 (two) puffs by mouth every 4 hours as needed for Wheezing ??? metFORMIN ER 24hr (GLUCOPHAGE XR) 500 MG tablet 120 tablet 5 Sig: Take 4 (four) tablets by mouth daily with dinner documented in this encounter Plan of Treatment Upcoming Encounters Date Type Department Care Team (Late st Contact Info) Description 10/20/2024 8:00 AM SPLIT LEATHER DEPARTMENT SUPERVISOR Office Visit [facility] - Family Medicine [address] [facility], [facility] 150 [place] [address] Kiana Cole MD [address] [place] [address] 11/28/2024 9:00 AM SPLIT LEATHER DEPARTMENT SUPERVISOR Office Visit [facility] - Neurology [address] [facility], [place] [phone] Aline Finch MD [address] [facility] [place] [address] 02/10/2025 10:00 AM CDT Office Visit 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) Type 2 diabetes mellitus with other circulatory complication, without long-term current use of insulin (HCC) Mild intermittent asthma with acute exacerbation (HCC) Unspecified asthma, with exacerbation documented in this encounter Additional Health Concerns Infection Onset Date Last Indicated Resolved Time COVID-19 Under Investigation 07/26/2022 07/26/2022 07/26/2022 5:54 PM CDT COVID-19 Under Investigation 04/10/2024 04/10/2024 04/10/2024 2:48 PM CDT documented as of this encounter Care Teams Model Technician Relationship Specialty Start Date End Date Lisy Olmedo MD PCP - General 04/20/09 05/09/22 Sylvain Daniels MD PCP - General Family Medicine 05/10/22 02/14/24 None, Physician [address] [place] [address] PCP - General 02/15/24 05/16/24 Sylvain Daniels MD [address] [place] [address] PCP - Attributed-[employer] Commercial 05/15/22 10/01/22 Sylvain Daniels MD [address] [place] [address] PCP - Attributed-[employer] Commercial [facility] 02/12/23 04/01/23 Sylvain Daniels MD [address] [place] [address] PCP - General Family Medicine 05/17/24 05/19/24 Kiana Cole MD [address] [place] [address] PCP - General Internal Medicine 05/22/24 08/04/24 Sean Kyle MD [address] [place] [address] PCP - General Internal Medicine 08/05/24 09/15/24 Kiana Cole MD [address] [place] [address] PCP - General Internal Medicine 09/16/24 Sylvain Daniels MD Family Medicine 02/15/24 documented as of this encounter
--- OUTSIDE RECORDS SUMMARY | 2024-10-11 19:45 | XMS_ITS | Encounter Summary ---
Author Organization [facility] Health Address [address] [place] [address] Care Team Providers Care Body Former Name Role Phone Lisy Olmedo MD Primary Care Provide r Reason for Visit * Reason Comments Establish Care Encounter Details Date Type Department Care Team (Latest Contact Info) Description 03/17/2021 8:00 AM CDT Office Visit [facility] [phone] [place], [place] [phone] Flaco Colon MD [id number] [place], [place] [id number] Coronary artery disease involving coronary bypass graft of alatna heart with unstable angina pectoris (HCC) (Primary Dx); Essential hypertension; Hyperlipidemia, unspecified hyperlipidemia type Social History Tobacco Use Types Packs/Day Years Used Date Smoking Tobacco: Never Cigars St arted: 1997 Smokeless Tobacco: Never Comments:3-4 times / month-2 020 says 1x/month Alcohol Use Standard Drinks/Week Comments Yes 7 (1 standard drink = 0.6 oz pur e alcohol) mainly shots on occ AUDIT-C Answer Date Recorded Q1: How often [...] Sign Reading Time Taken Comments Blood Pressure 178/90 03/17/2021 8:12 AM CDT Pulse 88 03/17/2021 8:12 AM CDT Temperature - - Respiratory Rate - - Oxygen Saturation 98% 03/17/2021 8:12 AM CDT Inhaled Oxygen Concentration - - Weight 158.3 kg (349 lb) 03/17/2021 8:12 AM CDT Height 193 cm (6' 4 ) 03/17/2021 8:12 AM CDT Body Mass Index 42.48 03/17/2021 8:12 AM CDT documented in this encounter Functional [...] this encounter Patient Instructions * Patient Instructions* Flaco Colon MD - 03/17/2021 8:28 AM CDT follow up wanda muniz 6 months get lipid testing we will refer you for floatman counseling for weight loss documented in this encounter Progress Notes * Flaco Colon MD - 03/17/2021 8:22 AM CDT Assessment and Plan: Problem List Items Addressed This Visit Endocrine Hyperlipidemia (Chronic) Component Ref Range & Units 7 mo [...] equation in the estimation of LDL-C. Mika SS et al. RAFFI. 2013;310(19): 3284-7488 (http://education.[employer].com/faq/CWE097) CHOL/HDLC RATIO <5.0 (calc) 5.3High Non HDL Cholesterol <130 mg/dL (calc) 206High Hard to believe patient is taking 80 atorva but we will recheck lipids and add zetia and likely will need PCSK9i if really taking check lp(a) Relevant Orders EKG - Clinic Performed (Completed) LIPOPROTEIN A LIPID PROFILE AMB Ref Dietitian-med nutrition therapy - ENDO- 204 Cardiovascular CAD (coronary artery disease) - Primary (Chronic) without angina needs more aggressive RFM continue aspirin Relevant Orders EKG - Clinic Performed (Completed) AMB Ref Dietitian-med nutrition therapy - ENDO- 204 Essential hypertension (Chronic) encouraged him to follow directions of PCP for switch to spironolactone. He is also likely to need additional BP med adjustment with addition of HCTZ encouraged malu bp monitoring as recommended by PCP needs weight loss desperately and referred to floatman asked him to stop naproxen Relevant Orders EKG - Clinic Performed (Completed) AMB Ref Dietitian-med nutrition therapy - ENDO- 204 Chief Complaint: cad History of Present Illness: Yaya Vazquez is a 60 year old male with Past Medical History: Diagnosis Date ??? Anemia 01/2018 ??? Asthma ??? Chest congestion 08/05/2020 ??? Confusional arousals 08/05/2020 ??? Controlled type 2 diabetes mellitus without complication, without long-term current use of insulin 09/28/2011 ??? Coronary artery disease involving alatna heart with angina pectoris 09/04/2018 ??? Cough syncope 2017 ??? Daytime sleepiness 08/05/2020 ??? Essential hypertension 01/23/2018 ??? Hyperlipidemia 08/05/2020 ??? Inadequate sleep hygiene 08/05/2020 ??? Morbid obesity with BMI of 40.0-44.9, adult 08/05/2020 ??? Nocturia 08/05/2020 ??? Obesity (BMI 30-39.9) 04/24/2012 ??? Other chest pain 09/04/2018 ??? S/P CABG x 3 01/24/2018 ??? Snoring 08/05/2020 ??? Superficial postoperative wound infection 02/23/2018 sternum ??? Wears glasses 08/05/2020 ??? Weight gain 08/05/2020 40# past 6-8 months-covid ??? Wound of sternal region 02/23/2018 has not picked up spironolactone yet. says he is taking statin regularly has been inactive for last year due to pandemic gained 30 pounds denies chest pain or dyspnea PHYSICAL EXAM: BP 178/90 Pulse 88 Ht 6' 4 (1.93 m) Wt 349 lb (158.3 kg) SpO2 98% BMI 42.48 kg/m2 Body mass index is 42.48 kg/m??. GENERAL: No acute distress, pleasant, appears stated age alert and oriented x 3 SKIN: Warm and dry with good turgor EYES: PERRLA, EOMI LUNGS: Clear to auscultation, no wheezing, crackles, or rales HEAD: Normocephalic atraumatic, Moist mucus membranes NECK: No JVD, no carotid bruits HEART: Regular rate and rhythm, S1, S2. No murmurs gallups or rubs EXTREMITIES: No edema, cyanosis or clubbing. NEURO:, no focal deficit. Current Outpatient Medications Medication Sig Dispense Refill ??? albuterol HFA (PROVENTIL;VENTOLIN;PROAIR) 108 (90 Base) MCG/ACT inhaler Inhale 2 (two) puffs bymouth every 4 hours as needed for Wheezing 1 Inhaler 3 ??? amLODIPine (NORVASC) 10 MG tablet Take 1 (one) tablet by mouth at bedtime 30 tablet 3 ??? Aspirin 81 MG Take 81 mg by mouth once daily ??? atorvastatin (LIPITOR) 80 MG tablet Take 1 (one) tablet by mouth at bedtime 30 tablet 3 ??? Blood Glucose Monitoring Suppl (ONE TOUCH ULTRA MINI) W/DEVICE KIT Check blood sugars twice daily 1 kit 0 ??? blood glucose test strip Use 1 strip 2 times daily 100 strip 11 ??? carvedilol (COREG) 25 MG tablet Take 1 tablet by mouth 2 times daily with morning and evening meal 60 tablet 5 ??? glipiZIDE CR 24hr (GLIPIZIDE XL) 5 MG tablet Take 1 tablet by mouth once daily 30 tablet 5 ??? losartan (COZAAR) 100 MG tablet Take 1 tablet by mouth once daily 30 tablet 5 ??? metFORMIN ER 24hr (GLUCOPHAGE XR) 500 MG tablet Take 4 (four) tablets by mouth daily with dinner 120 tablet 3 ??? naproxen (NAPROSYN) 250 MG tablet Take 1 (one) tablet by mouth 2 times daily 20 tablet 0 ??? nitroGLYCERIN (NITROSTAT) 0.4 MG tablet Dissolve 1 tablet under the tongue every 5 minutes as needed for Angina 20 tablet 1 ??? One Touch Delica Lancets Use 2 times daily Check blood sugars twice daily. 100 Each 11 ??? polyethylene glycol (GOLYTELY) 236 g solution Drink 1/2 of prep at 6pm the night before test. Finish the prep 6 hours before test. 4000 mL 0 ??? sildenafil (REVATIO) 20 MG tablet Take 2 (two) tablets to 5 (five) tablets by mouth once daily as needed 30 tablet 5 ??? spironolactone (ALDACTONE) 25 MG tablet Take 1 (one) tablet by mouth once daily 30 tablet 5 No current facility-administered medications for this visit. Billing Guide documented in this encounter Plan of Treatment Upcoming Encounters Date Type Department Care Team (Late st Contact Info) Description 10/20/2024 8:00 AM MECHANICAL LEAD Office Visit [facility] - Family Medicine [address] [facility], [address] [phone] Kiana Cole MD [address] [place] [address] 11/28/2024 9:00 AM MECHANICAL LEAD Office Visit [facility] - Neurology [address] [facility], [place] [address] Aline Finch MD [address] [facility] [place] [address] 02/10/2025 10:00 AM CDT Office Visit [facility] - Cardiology [address] [phone] Curly Lay MD [address] [phone] documented as of this encounter Procedures Procedure Name Priority Date/Time Associated Diagnosis Comments PROC EKG IN CLINIC Routine 03/17/2021 8:13 AM CDT Coronary artery disease involving coronary bypass graft of alatna heart with unstable angina pectoris (HCC) Essential hypertension Hyperlipidemia, unspecified hyperlipidemia type documented in this encounter Results * EKG - Clinic Performed (03/17/2021 8:13 AM CDT) Flaco Colon MD ECG ORDERABLES documented in this encounter Visit Diagnoses Diagnosis Coronary artery disease involving coronary bypass graft of alatna heart with unstable angina pectoris (HCC)- Primary Essential hypertension Hyperlipidemia, unspecified hyperlipidemia type * Assessment & Plan Note - Flaco Colon MD - 03/17/2021 8:56 AM CDT Associated Problem(s): Essential hypertension encouraged him to follow directions of PCP for switch to spironolactone. He is also likely to need additional BP med adjustment with addition of HCTZ encouraged malu bp monitoring as recommended by PCP needs weight loss desperately and referred to floatman asked him to stop naproxen * Assessment & Plan Note - Flaco Colon MD - 03/17/2021 8:52 AM CDT Associated Problem(s): CAD (coronary artery disease) without angina needs more aggressive RFM continue aspirin * Assessment & Plan Note - Flaco Colon MD - 03/17/2021 7:51 AM CDT Associated Problem(s): Hyperlipidemia Component Ref Range & Units 7 mo [...] ?? LDL-C is now calculated using the Odell calculation, which is a validated novel method providing better accuracy than the Friedewald equation in the estimation of LDL-C. Mika SS et al. RAFFI. 2013;310(19): 7639-8155 (http://education.[employer].zlien/faq/HIE610) CHOL/HDLC RATIO <5.0 (calc) 5.3High Non HDL Cholesterol <130 mg/dL (calc) 206High Hard to believe patient is taking 80 atorva but we will recheck lipids and add zetia and likely will need PCSK9i if really taking check lp(a) documented in this encounter Care Teams Body Former Relationship Specialty Start Date End Date Lisy Olmedo MD PCP - General 04/20/09 05/09/22 documented as of this encounter
--- OUTSIDE RECORDS SUMMARY | 2024-10-11 19:45 | XMS_ITS | Encounter Summary ---
Author Organization [facility] Address [address] [place] [address] Care Team Providers Care Burr Sander Name Role Phone Lisy Olmedo MD Primary Care Provide r Encounter Details Date Type Department Care Team (Late st Contact Info) Description 01/07/2021 Orders Only [facility] - COVID Vaccine [address] [place] [phone] Mark Bray MD [address] [place] [address] Need for vaccination Social History Tobacco Use Types Packs/Day Years [...] st Contact Info) Description 10/20/2024 8:00 AM GRADUATE RN Office Visit [facility] - Family Medicine [address] [place] [phone] Kiana Cole MD [address] [place] [address] 11/28/2024 9:00 AM GRADUATE RN Office Visit [facility] - Neurology [address] [facility], [place] [phone] Aline Finch MD [address] [facility] [place] [address] 02/10/2025 10:00 AM CDT [facility] [address] [phone] [place] [address] Curly Lay MD [phone] [place] [address] documented as of this encounter Visit Diagnoses Diagnosis Need for vaccination Need for prophylactic vaccination and inoculation against unspecified single disease documented in this encounter Care Teams Burr Sander Relationship Specialty Start Date End Date Lisy Olmedo MD PCP - General 04/20/09 05/09/22 documented as of this encounter
--- OUTSIDE RECORDS SUMMARY | 2024-10-11 19:45 | XMS_ITS | Encounter Summary ---
Author Organization [facility] Health Address [address] [facility] [place] [address] Care Team Providers Care Automatic Typewriter Inspector Name Role Phone Lisy Olmedo MD Primary Care Provide r Reason for Visit * Reason Onset Date Comments MEDICATION REFILL 05/13/2021 Encounter Details Date Type Department Care Team (Late st Contact Info) Description 05/13/2021 Refill [facility] Community Medicine [address] [phone] Lisy Olmedo MD [facility] [place] [address] MEDICATION REFILL Social History Tobacco Use Types [...] encounter Miscellaneous Notes * Telephone Encounter - Carlyn Wilson - 05/13/2021 2:18 PM CDT Yaya Vazquez Requested Prescriptions Pending Prescriptions Disp Refills ??? losartan (COZAAR) 100 MG tablet 30 tablet 5 Sig: Take 1 (one) tablet by mouth once daily Allergies Allergen Reactions ??? Lisinopril Angioedema ??? Pcn [Penicillins] Swelling eyes swelled shut 50 years ago ??? Penicillin V Rash Last Refill:09/21/2020 Qty Dispense:30 # of Refills:5 Last OV:02/24/2021 Next OV:none documented in this encounter Plan of Treatment Upcoming Encounters Date Type Department Care Team (Late st Contact Info) Description 10/20/2024 8:00 AM MACHINIST APPRENTICE WOOD Office Visit [facility] - Family Medicine [address] [facility] [address] [place] [phone] Kiana Cole MD [address] [place] [address] 11/28/2024 9:00 AM MACHINIST APPRENTICE WOOD Office Visit [facility] - Neurology [address] [facility] [place] [address] Aline Finch MD [address] [facility] [place] [address] 02/10/2025 10:00 AM CDT Office Visit [facility] - Cardiology [address] [phone] Curly Lay MD [address] [phone] documented as of this encounter Visit Diagnoses Diagnosis Essential hypertension documented in this encounter Care Teams Automatic Typewriter Inspector Relationship Specialty Start Date End Date Lisy Olmedo MD PCP - General 04/20/09 05/09/22 documented as of this encounter
--- OUTSIDE RECORDS SUMMARY | 2024-10-11 19:45 | XMS_ITS | Encounter Summary ---
Author Organization [facility] Health Address [address] [place] [address] Care Team Providers Care Food Service Name Role Phone Sylvain Daniels MD Primary Care Provider + [phone] Sylvain Daniels MD Unavailable [phone] Reason for Visit * Reason Comments Shortness of Breath pt with hx of cad, c elis in sob. sats on ra were in the low 80's. now on oxygen. crackles noted in lower lungs. no fever or prod cough. most likely a chf exacerbation. pt declined ems. * Auth/Cert Specialty Diagnoses / Procedures Referred By Contac t Referred To Contact Referral ID Status Reason Start Date Expiration Date Visits Re quested Visits Authorized [id number] 1 1 Encounter Details Date Type Department Care Team (Latest Contact Info) Description 07/26/2022 3:25 PM CDT - 07/28/2022 5:27 PM CDT Hospital Encounter [facility] 5N Pulmonary Med [address] [facility] [place] [address] [place] [address] [address] [facility] [place] [address] Datar, [place] [address] [place] [address] [place] [address] [place], [place] [address] Emergency Medicine Discharge Disposition: Home or Self Care Social [...] Answer Date Recorded PHQ2 TOTAL SCORE 0 05/10/2022 Hunger Vital Sign Answer Date Recorded Within [...] Sign Reading Time Taken Comments Blood Pressure 142/79 07/28/2022 4:26 PM CDT Pulse 69 07/28/2022 4:26 PM CDT Temperature 36.8 ??C (98.2 ??F) 07/28/2022 4:26 PM CD T Respiratory Rate 18 07/28/2022 4:26 PM CDT Oxygen Saturation 92% 07/28/2022 4:26 PM CDT Inhaled Oxygen Concentration - - Weight 141.1 kg (311 lb) 07/26/2022 3:05 PM CDT Height 193 cm (6' 4 ) 07/26/2022 3:05 PM CDT Body Mass Index 37.86 07/26/2022 3:05 PM CDT documented in this encounter Functional [...] No 01/30/2018 documented as of this encounter Discharge Summaries * Bunny Birch MD - 07/28/2022 1:58 PM CDT Physician Discharge Summary Patient ID: Yaya Solorio [id number] 61 year old 1960 Admit date: 07/26/2022 Discharge date: 07/28/22 Discharge Physician: Bunny Birch MD Discharge Diagnoses: COPD exacerbation Bronchitis Hospital Course: 61 years old male with PMH of HTN, DM and CABG. Patient states about 1 week ago he developed a dry cough and an??itching sensation in his throat. ??He took multiple COVID-19 test that were negative. ??Over the last 2 days he has felt increasingly short of breath worse with exertion he feels increasingly weak.?At urgent care today he was found have an oxygen saturation at 83% on room air he wasthen referred to the ER.?Patient is placed on 3 L nasal cannula with improvement of oxygen saturations in the mid 90s ?? Found to have wheezing and admitted for obstructive airway disease exacerbation # Obstructive airway disease exacerbation # Acute hypoxic resp failure - never smoker; no prior history of copd - BNP and troponin normal; no clinical signs of heart failure - ABG with 7.43/50 suggesting some chronic retention - given wheezing and ABG; suspect underlying COPD - DDx include simple acute bronchitis - treated with IV steroid with improvement in symptoms PLAN - needs 2L oxygen at discharge - outpatient pulm f/u for spirometry - ICS/LABA - albuterol prn - prednisone to finish course - outpatient pulm for spirometry ?? # DM - resume home metformin and glipizide - anticipate hyperglycemia while on steorids ?? # CAD s/p CABG # HTN - resume home meds ?? Consults: None Significant Diagnostic Studies: See hospital course Treatments: See hospital course Discharge Exam: General: Alert, awake, no acute distress Eyes: no icterus or conjunctivitis, no discharge Card: Regular rate and rhythm, S1 S2, no edema, old CABG healed scar present RESP: no crepts, non-labored breathing, wheezing improved GI: soft, nontender, nondistended Skin: no rashes, no icterus on exposed skin Neuro: Alert and oriented, moving all extremities spontaneously, speech intact Psych: Calm, cooperative, speech normal, behavior normal Disposition: Home Patient Instructions: Current Discharge Medication List START taking these medications Instructions Authorizing Provider budesonide-formoterol 160-4.5 MCG/ACT inhaler Commonly known as: Symbicort Quantity Dispensed: 10 g Inhale 1 (one) puff by mouth 2 times daily Bunny Birch MD dextromethorphan-guaiFENesin 10-100 MG/5ML syrup Commonly known as: Robitussin DM Quantity Dispensed: 354 mL Take 5-10 mL by mouth every 4 hours as needed for Cough Bunny Birch MD predniSONE 20 MG tablet Commonly known as: Deltasone Quantity Dispensed: 6 tablet Take 2 (two) tablets by mouth once daily for 3 days Bunny Birch MD CONTINUE taking these medications which have NOT CHANGED Instructions Authorizing Provider albuterol HFA 108 (90 Base) MCG/ACT inhaler Commonly known as: Proventil; Ventolin; Proair Quantity Dispensed: 18 g Inhale 2 (two) puffs by mouth every 4 hours as needed for Wheezing Bunny Birch MD amLODIPine 10 MG tablet Commonly known as: Norvasc Quantity Dispensed: 90 tablet Take 1 (one) tablet by mouth at bedtime Sylvain Daniels MD aspirin EC 81 MG tablet Commonly known as: Ecotrin Take 81 mg by mouth once daily atorvastatin 80 MG tablet Commonly known as: Lipitor Quantity Dispensed: 90 tablet Take 1 (one) tablet by mouth at bedtime Sylvain Daniels MD blood glucose test strip Quantity Dispensed: 100 strip Use 1 strip 2 times daily Lisy Olmedo MD carvedilol 25 MG tablet Commonly known as: Coreg Quantity Dispensed: 90 tablet Take 1 (one) tablet by mouth 2 times daily with morning and evening meal Sylvani Daniels MD CPAP Use as directed glipiZIDE CR 24hr 5 MG tablet Commonly known as: glipiZIDE XL Quantity Dispensed: 90 tablet Take 1 (one) tablet by mouth once daily Sylvain Daniels MD losartan 100 MG tablet Commonly known as: Cozaar Quantity Dispensed: 90 tablet Take 1 (one) tablet by mouth once daily Sylvain Daniels MD metFORMIN ER 24hr 500 MG tablet Commonly known as: Glucophage XR Quantity Dispensed: 180 tablet Take 2 (two) tablets by mouth 2 times daily Sylvain Daniels MD naproxen 250 MG tablet Commonly known as: Naprosyn Quantity Dispensed: 20 tablet Take 1 (one) tablet by mouth 2 times daily Grupo Kevin MD nitroGLYCERIN 0.4 MG tablet Commonly known as: Nitrostat Quantity Dispensed: 20 tablet Dissolve 1 tablet under the tongue every 5 minutes as needed for Angina Lisy Olmedo MD One Touch Delica Lancets Quantity Dispensed: 100 Each Use 2 times daily Check blood sugars twice daily. Lisy Olmedo MD ONE TOUCH ULTRA MINI w/Device Kit Quantity Dispensed: 1 kit Check blood sugars twice daily Lisy Olmedo MD sildenafil 20 MG tablet Commonly known as: Revatio Quantity Dispensed: 30 tablet Take 2 (two) tablets to 5 (five) tablets by mouth once daily as needed This medicine cannot be combined with nitroglycerin. Lisy Olmedo MD spironolactone 25 MG tablet Commonly known as: Aldactone Quantity Dispensed: 30 tablet Take 1 (one) tablet by mouth once daily Lisy Olmedo MD I spent >31 mins in preparation of this discharge. Signed: Bunny Birch MD 07/28/2022 1:58 PM documented in this encounter Medications at Time [...] times daily 100 strip 11 03/19/2018 02/15/2024 budesonide-formoterol (Symbicort) 160-4.5 MCG/ACT inhaler Inhale 1 (one) puff by mouth 2 times daily 10 g 07/28/2022 08/03/2022 carvedilol (COREG) 25 MG tabletIndications:S/P CABG x 3 Take 1 (one) tablet by mouth 2 times daily with morning and evening meal 90 tablet 1 05/10/2022 01/23/2024 CPAP Use as directed 02/15/2024 dextromethorphan-guaiFE Nesin (Robitussin DM) 10-100 MG/5ML syrup Take 5-10 mL by mouth every 4 hours as needed for Cough 354 mL 07/28/2022 05/07/2023 glipiZIDE CR 24hr (GLIPIZIDE XL) 5 [...] twice daily. 100 Each 11 03/19/2018 02/15/2024 predniSONE (Deltasone) 20 MG tablet Take 2 (two) tablets by mouth once daily for 3 days 6 tablet 07/28/2022 07/31/2022 sildenafil (REVATIO) 20 MG tabletIndications:Erect ile dysfunction, unspecified erectile dysfunction type Take 2 (two) tablets to 5 (five) tablets by mouth once daily as needed This medicine cannot be combined with nitroglycerin. 30 tablet 3 11/22/2021 05/07/2023 spironolactone (ALDACTONE) 25 MG tabletIndications:Essgrey tial hypertension Take 1 (one) tablet by mouth once daily 30 tablet 5 02/24/2021 01/23/2024 documented as of this encounter Progress Notes * Vania Simpson RN - 07/28/2022 3:52 PM CDT Problem: Ineffective breathing pattern related to obstructive sleep apnea Goal: Maintains optimal sleep pattern, as evidenced by relaxed breathing at normal rate and depth. Outcome: Adequate for Discharge Goal: Adheres to CPAP (Continuous Positive Airway Pressure) device regimen as prescribed. Outcome: Adequate for Discharge Problem: Sleep deprivation related to sleep apnea. Goal: Achieves restful, refreshing sleep pattern. Outcome: Adequate for Discharge Problem: Fall Risk Goal: Fall risk and fall related injury risk are minimized (interventions related to the fall risk can be found in the flowsheet documentation) Outcome: Adequate for Discharge Patient waiting for apple picker. Discharge teaching and papers given to the patient. Patient has home oxygen at the bedside. * Lucita Saenz, PharmD - 07/28/2022 2:30 PM CDT [facility] Pharmacy Services Pharmacy Discharge Review I have reviewed the discharge medication orders in [facility]. Thank you for involving me in the care of Yaya Solorio Lucita Saenz PharmD 07/28/2022 * Andreia Landrum RN - 07/28/2022 1:09 PM CDT Patient to discharge home today. Patient will need Home O2-2L-NC. Text to Dr. Birch to place orders. Power DME aware. Andreia Landrum RN/Manager Managed Backup ServicesRgqynal-[phone] * Titus Campbell RCP - 07/28/2022 1:04 PM CDT Home O2 evaluation completed. Pt requires 2LPM of oxygen while resting and with activity. If any questions contact respiratory @1228. Thanks * Zeb Donaldson RN - 07/28/2022 5:46 AM CDT Shift Summary: A&Ox4 VSS On 3L O2 NC Needs attended Bed placed in lowest position, call light within reach * Zeb Donaldson RN - 07/27/2022 7:40 PM CDT Problem: Ineffective breathing pattern related to obstructive sleep apnea Goal: Maintains optimal sleep pattern, as evidenced by relaxed breathing at normal rate and depth. Outcome: Progressing Goal: Adheres to CPAP (Continuous Positive Airway Pressure) device regimen as prescribed. Outcome: Progressing Problem: Sleep deprivation related to sleep apnea. Goal: Achieves restful, refreshing sleep pattern. Outcome: Progressing Problem: Fall Risk Goal: Fall risk and fall related injury risk are minimized (interventions related to the fall risk can be found in the flowsheet documentation) Outcome: Progressing * Jodi Hicks RPH - 07/27/2022 3:04 PM CDT [facility] Pharmacy Services Admission Medication Review Yaya Solorio is a 61 year old male I have reviewed patient's home medication list with the electronic medical record. The medication list review was after the physician has seen and acted upon, and is now ready for re-review/order by physician. Medication List Revisions Medications removed: casie Thank you for the opportunity to take part of Yaya Solorio's care. Jodi Hicks RPH * Bunny Birch MD - 07/27/2022 1:47 PM CDT HOSPITALIST PROGRESS NOTE Admit Date: 07/26/2022 3:25 PM Hospital Day: 1 PCP:Sylvain Daniels MD Clinical Course 61 years old male with PMH of HTN, DM and CABG. Patient states about 1 week ago he developed a dry cough and an itching sensation in his throat. He took multiple COVID-19 test that were negative. Over the last 2 days he has felt increasingly short of breath worse with exertion he feels increasinglyweak. At urgent care today he was found have an oxygen saturation at 83% on room air he was then referred to the ER. Patient is placed on 3 L nasal cannula with improvement of oxygen saturations in the mid 90s Found to have wheezing and admitted for obstructive airway disease exacerbation CC obstructive airway disease exacerbation, hypoxia Subjective soa and wheezes have improved but not resolved yet ROS No fever Data Vitals reviewed Recent Labs Component Name 07/27/22 0244 07/26/22165212/24/19 0923 SODIUM 134* 138 136 POTASSIUM 4.2 4.0 4.0 CHLORIDE 95* 96* 101 CO2 25 29 29 BUN 17 13 11 CREATININE 0.98 0.94 0.97 GLUCOSE 285* 151* 187* CALCIUM 8.9 9.2 8.6 Recent Labs Component Name 07/27/22 0244 07/26/223 12/24/19 0923 WBC 10.2 9.7 5.6 HGB 12.2 12.2 13.4 HCT 38.4 36.7 40.1 PLTCOUNT 254 254 253 Exam General: Alert, awake, no acute distress Eyes: no icterus or conjunctivitis, no discharge Card: Regular rate and rhythm, S1 S2, no edema, old CABG healed scar present RESP: no crepts, + wheezes, non-labored breathing GI: soft, nontender, nondistended Skin: no rashes, no icterus on exposed skin Neuro: Alert and oriented, moving all extremities spontaneously, speech intact Psych: Calm, cooperative, speech normal, behavior normal Assessment and Plan # Obstructive airway disease exacerbation # Acute hypoxic resp failure - never smoker; no prior history of copd - BNP and troponin normal; no clinical signs of heart failure - ABG with 7.43/50 suggesting some chronic retention - given wheezing and ABG; suspect underlying COPD PLAN: - continue IV steroids 40 q8h for now - ambulatory oximetry - duonebs scheduled - start symbicort - mucinex - outpatient pulm for spirometry # DM - hold home metformin - resume glipizide - SSI - anticipate hyperglycemia while on steorids # CAD s/p CABG # HTN - resume home meds DVT ppx: enoxaparin Discharge Planning to anticipated Next Site of Care: Home when ready MEDICATIONS FOR CURRENT ENCOUNTER: ?? SCHEDULED MEDICATIONS: ?? 0.9% NaCl injection 3 mL, Intracatheter, q8h ?? albuterol-ipratropium (Duo-Neb) nebulizer solution 3 mL, Inhalation, q6h ?? amLODIPine (Norvasc) tablet 10 mg, Oral, AT BEDTIME ?? aspirin chew tablet 81 mg, Oral, QDAY ?? atorvastatin (Lipitor) tablet 80 mg, Oral, AT BEDTIME ?? carvedilol (Coreg) tablet 25 mg, Oral, BID WC ?? enoxaparin (Lovenox) injection 40 mg, Subcutaneous, QDAY AT 0600 ?? insulin aspart (NovoLOG) pen 0-6 Units, Subcutaneous, TID WC ?? losartan (Cozaar) tablet 100 mg, Oral, QDAY ?? methylPREDNISolone sod succ (SOLU-Medrol) injection 40 mg, Intravenous, q8h ?? spironolactone (Aldactone) tablet 25 mg, Oral, QDAY ?? [COMPLETED] albuterol-ipratropium (Duo-Neb) nebulizer solution 3 mL, Inhalation, Now ?? [COMPLETED] magnesium sulfate 2 g in 50 mL bolus, Intravenous, Now ?? [COMPLETED] methylPREDNISolone sod succ (SOLU-Medrol) injection 80 mg, Intravenous, Now ?? PRN MEDS: ?? Or ?? 0.9% NaCl injection 1-10 mL, Intracatheter, PRN ?? albuterol HFA (Proventil; Ventolin; Proair) 108 (90 Base) MCG/ACT inhaler 2 puff, Inhalation, q4h PRN ?? dextrose 10 % IV bolus, Intravenous, PRN ?? dextrose 10 % IV bolus, Intravenous, PRN ?? glucagon (Glucagen) injection 1 mg, Subcutaneous, PRN ?? glucose (Diabetic Use) (Glucose) oral liquid, Oral, PRN ?? glucose (Diabetic Use) oral gel, Oral, PRN ?? glucose chew tablet 4 tablet, Oral, PRN ?? guaiFENesin (Robitussin) solution 10 mL, Oral, q4h PRN ?? CONTINUOUS MEDS: Peripheral IV Left Antecubital (Active) Placement Date/Time: 07/26/22 1655 Orientation: Left Location: Antecubital IV Catheter Size: 18 Gauge Number of days: 0 * Andreia Landrum RN - 07/27/2022 9:58 AM CDT Case Management Initial Assessment Case Management screen completed & Welcome Letter given. Anticipated Discharge Date: 07/28/22 Transportation at Discharge: Family (Sister) Anticipated level of care at discharge: Home, Home Health Care Anticipated level of care provider: Junior Prior to admission level of care: Home Prior to admit provider: Junior Discharge Goals and Plans: Patient Goals: Return home Plans: Discharge needs identified. See progress notes for details. Case Management to follow for discharge planning. Upon discharge or transfer to a post acute facility should rehospitalization, home health, rehabilitation, or any other follow up care be required, patient's preference is to stay within the [facility] Network and its affiliates.: Unsure Comments: Patient admitted with ARF. Patient on O2-42L-NC and IV Solumedrol. Plan is home with family support upon discharge. Patient may benefit from [facility]. Lives with: Alone Physical Limitations: None Requires Assistance With: None Insurance: Payer/Plan Subscriber Name Rel Member # Group # [facility] - * BITA SOLORIO* Self [id number] [address] [address] Basic Needs Assessment (BNA) Score: 10 Readmission: No Met with patient Family Support (name and phone): Extended Emergency Contact Information Primary Emergency Contact: Jenn Mckee [facility] Relation: Sister Secondary Emergency Contact: Karli Solorioty [facility] Relation: Sister Patient or resources representative requests care coordination reach out to family or caregiver listed above regarding discharge planning and at time of discharge? Yes Patient/Family provided with list of resources? Yes Preferred Provider / High Quality Network List given?: Unknown Reason for provider choice: Pt. choice - Physician driven Transportation to MD appointments: Family Equipment at Home: Equipment at Home: Blood Glucose Monitor Additional equipment needed at home but does not have: None If no PCP, action taken: N/A Follow-up Appointment: patient to make Pharmacy benefit: Yes Medication affordability concerns: No Hunger Screening: Within the past 12 months, you worried that your food would run out before you got the money to buymore.: Never true Within the past 12 months, the food you bought just didn't last and you didn't have money to get more.: Never true Food Bank Resources Provided: Not offered to the patient Product Development Worker Referral: No Will continue to follow. For any questions or needs please contact: Manager Managed Backup Services Name/Phone number: Andreia Landrum RN [phone] * Ashleigh Jones RN - 07/27/2022 6:38 AM CDT A&O X 4 Pt is on O2 @3LPM/ NC. No episode of desaturation within the shift. With wheezing on both lung jordan. On IV steroids and neb treatments. Patient is currently resting on bed with side rails up, wheels locked and call light within reached. * Ashleigh Jones RN - 07/27/2022 3:15 AM CDT Problem: Ineffective breathing pattern related to obstructive sleep apnea Goal: Maintains optimal sleep pattern, as evidenced by relaxed breathing at normal rate and depth. Outcome: Progressing Goal: Adheres to CPAP (Continuous Positive Airway Pressure) device regimen as prescribed. Outcome: Progressing Problem: Sleep deprivation related to sleep apnea. Goal: Achieves restful, refreshing sleep pattern. Outcome: Progressing Problem: Fall Risk Goal: Fall risk and fall related injury risk are minimized (interventions related to the fall risk can be found in the flowsheet documentation) Outcome: Progressing documented in this encounter H&P Notes * Datar, Divya Corado MD - 07/26/2022 5:50 PM CDT Date of Admission : 07/26/2022 PCP: Sylvain Daniels MD Reason for Admission : Respiratory failure HPI: Pt is a 61 year old male who has a past medical history of Anemia (01/2018), Asthma, Chest congestion (08/05/2020), Confusional arousals (08/05/2020), Controlled type 2 diabetes mellitus without complication, without long-term current use of insulin ([facility]) (09/28/2011), Coronary artery disease involving pilot station heart with angina pectoris ([facility]) (09/04/2018), Cough syncope (2017), Daytime sleepiness (08/05/2020), Essential hypertension (01/23/2018), Hyperlipidemia (08/05/2020), Inadequate sleep hygiene (08/05/2020), Morbid obesity with BMI of 40.0-44.9, adult ([facility]) (08/05/2020), Nocturia (08/05/2020), Obesity (BMI 30-39.9) (04/24/2012), Other chest pain (09/04/2018), S/P CABG x 3 (01/24/2018), Snoring (08/05/2020), Superficial postoperative wound infection (02/23/2018), Wears glasses (08/05/2020), Weight gain (08/05/2020), and Wound of sternal region (02/23/2018). presents to the ER with chief complaint of shortness of breath & fatigue, symptoms have been present for the past 2days, does have cough, has been vaccinated and boosted against COVID-19, he also has underlying COPD, has been using his home inhaler 2-3 times a day with some improvement, he is a non smoker, he does drink alcohol socially, he denies any chest pain at this time. He does have underlying MONTY, statesthat he wears his CPAP 2-3 times per week. On ROS, He denies any CP, Admits to SOB, HAN, cough, URI symptoms, Denies nausea, vomiting ,abdominal pain, diarrhea, melena, constipation Has no fever or chills, rash , flank pain , hematuria , frequency of micturition Has no lightheadedness, dizziness, no headache, focal weakness or photophobia or parasthesias , vision abnormalities or balance issues Allergies Allergies Allergen Reactions ??? Lisinopril Angioedema ??? Pcn [Penicillins] Swelling eyes swelled shut 50 years ago ??? Penicillin V Rash Past Medical History: Diagnosis Date ??? Anemia 01/2018 ??? Asthma ??? Chest congestion 08/05/2020 ??? Confusional arousals 08/05/2020 ??? Controlled type 2 diabetes mellitus without complication, without long-term current use of insulin ([facility]) 09/28/2011 ??? 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 Cough syncope 2017 ??? Daytime sleepiness 08/05/2020 ??? Essential hypertension 01/23/2018 ??? Hyperlipidemia 08/05/2020 ??? Inadequate sleep hygiene 08/05/2020 ??? Morbid obesity with BMI of 40.0-44.9, adult ([facility]) 08/05/2020 ??? Nocturia 08/05/2020 ??? Obesity (BMI [...] artery bypass graft x 3 ??? Tonsillectomy No current facility-administered medications on file prior to encounter. Current Outpatient Medications on File Prior to Encounter Medication Sig Dispense Refill ??? albuterol HFA (PROVENTIL;VENTOLIN;PROAIR) 108 (90 Base) MCG/ACT inhaler Inhale 2 (two) puffs bymouth every 4 hours as needed for Wheezing 1 Inhaler 3 ??? amLODIPine (NORVASC) 10 MG tablet Take 1 (one) tablet by mouth at bedtime 90 tablet 1 ??? Aspirin 81 MG Take 81 mg [...] once daily 90 tablet 1 ??? losartan (COZAAR) 100 MG tablet Take 1 (one) tablet by mouth once daily 90 tablet 1 ??? metFORMIN ER 24hr (GLUCOPHAGE XR) 500 MG tablet Take 2 (two) tablets by mouth 2 times daily 180tablet 1 ??? naproxen (NAPROSYN) 250 MG tablet Take [...] Finish the prep 6 hours before test. (Patient not taking: Reported on 05/10/2022) 4000 mL 0 ??? sildenafil (REVATIO) 20 MG tablet Take 2 (two) tablets to 5 (five) tablets by mouth once daily as needed This medicine cannot be combined with nitroglycerin. 30 tablet 3 ??? spironolactone (ALDACTONE) 25 MG tablet Take 1 (one) tablet by mouth once daily 30 tablet 5 Social History Has been reviewed Social History Socioeconomic History ??? Marital status: Legally Spouse name: Not on file ??? Number of children: 1 ??? Years of education: 16 ??? Highest education level: Bachelor's degree (e.g., BA, AB, BS) Occupational History ??? 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 Smoking status: Never Smoker ??? Smokeless tobacco: Never Used ??? Tobacco comment: 3-4 times / month-2019 says 1x/month Vaping Use ??? Vaping Use: Never used Substance and Sexual Activity ??? Alcohol use: Yes Alcohol/week: 10.0 standard drinks Types: 10 Standard drinks or equivalent per week ??? Drug use: Yes Types: Marijuana ??? Sexual activity: Not Currently Other Topics Concern ??? Not on file Social History Narrative Lives in apartment alone Pets none Hobby watch tv, golf Social Determinants of Health Financial Resource Strain: Not on file Food Insecurity: Not on file Transportation Needs: Not on file Physical Activity: Not on file Stress: Not on file Social Connections: Not on file Intimate Partner Violence: Not on file Housing Stability: Not on file Family History family history includes CAD (Coronary Artery Disease) in his father; Cancer - Ovarian in his mother; Diabetes - Type 2 in his sister; Hypertension in his father; None Known in his sister. ROS As per HPI, rest of the 14 point ROS were reviewed and were negative PHYSICAL EXAM: Patient Vitals for the past 24 hrs: Temp Pulse Resp BP 07/26/22 1505 97.7 ??F (36.5 ??C) 67 18 140/94 General appearance: alert, cooperative, no distress, HEENT : No JVD, non icteric conjunctiva Normocephalic , MM moist CVS: regular rhythm, normal S1 and S2, without murmurs, rubs or gallops Pulm: wheezing bilaterally GI: soft without mass, non-tender, with normal bowel sounds MSK/Extremities: no clubbing, cyanosis or edema Neuro: alert and oriented x 3, no gross focal deficits Psych: calm, Skin: no rash Recent Labs Component Name 07/26/22 1653 SODIUM 138 POTASSIUM 4.0 CHLORIDE 96* CO2 29 BUN 13 CREATININE 0.94 GLUCOSE 151* CALCIUM 9.2 ALBUMIN 4.0 ALKPHOS 90 ALT 10 AST 14 TBIL 0.6 TPROT 8.4* EGFR >90 Recent Labs Component Name 07/26/22 16512/24/19 0923 09/04/18 0956 ALBUMIN 4.0 3.9 3.3* ALKPHOS 90 71 76 ALT 10 14 18 AST 14 14 17 TBIL 0.6 0.5 0.4 TPROT 8.4* 7.3 8.1 No results for input(s): TROPONIN in the last 20550 hours. Recent Labs Component Name 07/26/22 16512/24/19 0923 09/06/18 0318 WBC 9.7 5.6 5.3 HGB 12.2 13.4 13.3 HCT 36.7 40.1 40.5 PLTCOUNT 254 253 250 Recent Labs Component Name 07/23/20 0649 TSH 2.62 LABS AND IMAGING DONE SINCE ADMISSION WERE REVIEWED BY ME ASSESSMENT AND PLAN Acute hypoxemic respiratory failure Asthma exacerbation Hypomagnesemia CAD s/p CABG Diabetes Hypertension MONTY PLAN - Continue supplemental oxygen as needed, maintain SpO2 > 92%, dimer negative - Started on solumedrol, albuterol, s/p Mg 2g, CXR unremarkable, COVID & flu negative - Will resume home medications for CAD, hypertension, cover with sliding scale insulin for diabetes - Counseled regarding compliance with CPAP DVT prophylaxis Heparin Diabetic diet Advance Care Plan : Full Code Patients Functional Baseline prior to admit : Independent Discharge Planning to Next Site of Care: Risk Factors for Mortality Present at Time of Admission Acute hypoxemic respiratory failure Asthma exacerbation CAD s/p CABG Diabetes Hypertension MONTY documented in this encounter ED Notes * Nina Arboleda - 07/26/2022 6:07 PM CDT Attempted to give report, however the room changed on the bed board and the new room is dirty. * Chandler Houston DO - 07/26/2022 3:39 PM CDT Images from the original note were not included. Yaya Solorio [id number] [facility] History Chief Complaint Patient presents with ??? Shortness of Breath pt with hx of cad, came in sob. sats on ra were in the low 80's. now on oxygen. crackles noted in lower lungs. no fever or prod cough. most likely a chf exacerbation. pt declined ems. HPI 61M history of CAD status post CABG, diabetes, hypertension presents to the ER from urgent care forevaluation of hypoxia. Patient states about 1 week ago he developed a dry cough and an itching sensation in his throat. He took multiple COVID-19 test that were negative. Over the last 2 days he has felt increasingly short of breath worse with exertion he feels increasingly weak. At urgent care today he was found have an oxygen saturation at 83% on room air he was then referred to the ER. Patientis placed on 3 L nasal cannula with improvement of oxygen saturations in the mid 90s. Patient reports no history of oxygen use in the past. No history of smoking. No known history of congestive heartfailure. No chest pain, lower extremity edema. No sick contacts. No recent travel. Social ETOH use.No marijuana use. No other drug use. Past Medical History: Diagnosis Date ??? Anemia 01/2018 ??? Asthma ??? Chest congestion 08/05/2020 ??? Confusional arousals 08/05/2020 ??? Controlled type 2 diabetes mellitus without complication, without long-term current use of insulin ([facility]) 09/28/2011 ??? 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 Cough syncope 2017 ??? Daytime sleepiness 08/05/2020 ??? Essential hypertension 01/23/2018 ??? Hyperlipidemia 08/05/2020 ??? Inadequate sleep hygiene 08/05/2020 ??? Morbid obesity with BMI of 40.0-44.9, adult ([facility]) 08/05/2020 ??? Nocturia 08/05/2020 ??? Obesity (BMI [...] artery bypass graft x 3 ??? Tonsillectomy Family History Problem Relation Name Age [...] BA, AB, BS) Occupational History ??? 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 Smoking status: Never Smoker ??? Smokeless tobacco: Never Used ??? Tobacco comment: 3-4 times / month-2020 says 1x/month Vaping Use ??? Vaping Use: Never used Substance and Sexual Activity ??? Alcohol use: Yes Alcohol/week: 10.0 standard drinks Types: 10 Standard drinks or equivalent per week ??? Drug use: Yes Types: Marijuana ??? Sexual activity: Not Currently Other Topics Concern ??? Not on file Social History Narrative Lives in apartment alone Pets none Hobby watch tv, golf Social Determinants of Health Financial Resource Strain: Not on file Food Insecurity: Not on file Transportation Needs: Not on file Physical Activity: Not on file Stress: Not on file Social Connections: Not on file Intimate Partner Violence: Not on file Housing Stability: Not on file Review of Systems Review of Systems Constitutional: Negative for chills and fever. Respiratory: Positive for cough and shortness of breath. Negative for hemoptysis, sputum productionand wheezing. Cardiovascular: Negative for chest pain, palpitations and leg swelling. Gastrointestinal: Negative for abdominal pain, diarrhea, nausea and vomiting. Genitourinary: Negative for dysuria and hematuria. Musculoskeletal: Negative for back pain and neck pain. Neurological: Negative for dizziness, loss of consciousness, weakness and headaches. Psychiatric/Behavioral: Negative. All other systems reviewed and are negative. Physical Exam BP 140/94 Pulse 67 Temp 97.7 ??F (36.5 ??C) (Oral) Resp 18 Ht 1.93 m (6' 4 ) Wt (!) 141.1kg (311 lb) SpO2 (!) 84% BMI 37.86 kg/m?? Physical Exam Vitals and nursing note reviewed. Constitutional: General: He is awake. He is not in acute distress. Comments: Pleasant gentleman resting comfortably in stretcher, awake alert and conversant no acute distress HENT: Head: Normocephalic and atraumatic. Mouth/Throat: Mouth: Mucous membranes are moist. Eyes: Extraocular Movements: Extraocular movements intact. Conjunctiva/sclera: Conjunctivae normal. Pupils: Pupils are equal, round, and reactive to light. Neck: Trachea: No tracheal deviation. Cardiovascular: Rate and Rhythm: Normal rate and regular rhythm. Pulses: Normal pulses. Heart sounds: Normal heart sounds, S1 normal and S2 normal. Pulmonary: Effort: Pulmonary effort is normal. No respiratory distress. Breath sounds: Normal breath sounds. No wheezing, rhonchi or rales. Abdominal: General: There is no distension. Palpations: Abdomen is soft. Tenderness: There is no abdominal tenderness. There is no guarding. Musculoskeletal: Cervical back: Normal range of motion. No muscular tenderness. Right lower leg: No edema. Left lower leg: No edema. Skin: General: Skin is warm and dry. Capillary Refill: Capillary refill takes less than 2 seconds. Neurological: General: No focal deficit present. Mental Status: He is alert and oriented to person, place, and time. Mental status is at baseline. Psychiatric: Attention and Perception: Attention normal. Behavior: Behavior is cooperative. Medications Current Outpatient Medications Medication Sig Dispense Refill ??? albuterol HFA (PROVENTIL;VENTOLIN;PROAIR) 108 (90 Base) MCG/ACT inhaler Inhale 2 (two) puffs bymouth every 4 hours as needed for Wheezing 1 Inhaler 3 ??? amLODIPine (NORVASC) 10 MG tablet Take 1 (one) tablet by mouth at bedtime 90 tablet 1 ??? Aspirin 81 MG Take 81 mg [...] once daily 90 tablet 1 ??? losartan (COZAAR) 100 MG tablet Take 1 (one) tablet by mouth once daily 90 tablet 1 ??? metFORMIN ER 24hr (GLUCOPHAGE XR) 500 MG tablet Take 2 (two) tablets by mouth 2 times daily 180tablet 1 ??? naproxen (NAPROSYN) 250 MG tablet Take [...] Finish the prep 6 hours before test. (Patient not taking: Reported on 05/10/2022) 4000 mL 0 ??? sildenafil (REVATIO) 20 MG tablet Take 2 (two) tablets to 5 (five) tablets by mouth once daily as needed This medicine cannot be combined with nitroglycerin. 30 tablet 3 ??? spironolactone (ALDACTONE) 25 MG tablet Take 1 (one) tablet by mouth once daily 30 tablet 5 Procedures Procedures Procedure Note: ED Bedside Limited Cardiac Ultrasound Indication: Evaluation of systolic function, general assessment of volume status, evaluation for pericardial effusion, tamponade , gross abnormalities of cardiac anatomy Notes: Parasternal long, parasternal short, apical 4 chamber, subxiphoid and inferior vena cava views were obtained. Findings: Grossly normal systolic function No evidence of pericardial effusion Inferior vena cava with between 25 - 50% collapsibility with respiratory variation consistent with euvolemia and normal CVP Impression: Normal focused cardiac ultrasound without evidence of acute pathology This study did not evaluate for valvular or diastolic dysfunction. Performed and interpreted at the time of patient care, scan image(s) archived. Certified by Chandler Houston DO Media Information To Print: ??Double Click Image Below Document Information Photographic Image: Photos/Images Poc echo 07/26/2022 17:21 Attached To: Hospital Encounter on 07/26/22 Source Information Chandler Houston DO [facility] Emergency Dept Lab/SPO2 Interpretation No results found for this visit on 07/26/22. XR CHEST 1VW PORTABLE (Results Pending) Progress Notes ED Course ED Course as of 07/26/221753Jul 26, 2022 172 D-Dimer: 0.30 [BS] 1740 Patient care endorsed to [facility] Dr. Baugh at this time. [BS] ED Course User Index [BS] Chandler Houston DO Clinical Impressions as of 07/26/221753 Acute hypoxemic respiratory failure (CMS/HCC) Medical Decision Making Hypoxemic respiratory failure POCUS shows preserved EF, no pericardial effusion. CXR w/o acute dz trop neg Ddimer neg PE unlikely Plan: Admit for further w/o of hypoxia will try duonebs, steroids mg repletion EKG normal sinus rhythm rate 69, normal axis, QTC 44, no ST segment changes. PVC. Critical Care Addendum Note: Indication: hypoxemic respiratory failure I provided a total of 35 minutes of critical care excluding separately billable procedures. The time was intermittent distributed over the ED course. This includes time with EMS, initial bedside evaluation, reviewing old records, review of testing done while under my care, discussion with the family nurses and guiding the patient???s care while in the emergency department. Approximate time distribution: 10 minutes - Initial evaluation, d/w involved parties, attempting to gather old records 5 minutes - Documenting medical record 5 minutes - Review of results (EKGs, labs, imaging) 10 minutes - Serial repeat bedside evaluation 5 minutes - Discussing case with multiple providers Orders Placed This Encounter ??? SARS-COV-2 (COVID-19)+INFLU A+B PCR RAPID ??? XR CHEST 1VW PORTABLE ??? CBC W AUTO DIFFERENTIAL ??? COMPREHENSIVE METABOLIC PANEL ??? MAGNESIUM BLOOD ??? PT-INR ??? TROPONIN I ??? TROPONIN I ??? LACTIC ACID BLOOD REFLEX TO REPEAT ??? B-TYPE NATRIURETIC PEPTIDE ??? D-DIMER ??? EKG 12-LEAD documented in this encounter Plan of Treatment Upcoming Encounters Date Type Department Care Team (Late st Contact Info) Description 10/20/2024 8:00 AM ENVIRONMENTAL EMERGENCIES ASSISTANT Office Visit [facility] - Family Medicine [address] [facility] [address] [place] [phone] Kiana Cole MD [address] [place] [address] 11/28/2024 9:00 AM ENVIRONMENTAL EMERGENCIES ASSISTANT Office Visit [facility] - Neurology [address] [facility] [place] [phone] Aline Finch MD [address] [facility] [place] [address] 02/10/2025 10:00 AM CDT Office Visit [facility] - Cardiology [address] [facility] [place] [address] [place] [address] Curly Lay MD [address] [facility] [address] [place] [address] Scheduled Orders Name Type Priority Associated Diagnoses Order Schedule START ED RT BRONCHODILATOR PROTOCOL Respiratory Care STAT ONCE for 1 Occurrences starting 07/26/2022 until 07/26/2022 INITIATE RT BRONCHODILATOR PROTOCOL Respiratory Care Routine ONCE for 1 Occurrences starting 07/27/2022 until 07/27/2022 documented as of this encounter Procedures Procedure Name Priority Date/Time Associated Diagnosis Comments GLUCOSE - POINT OF CARE Routine 07/28/2022 5:37 PM CDT GLUCOSE - POINT OF CARE Routine 07/28/2022 4:24 PM CDT GLUCOSE - POINT OF CARE Routine 07/28/2022 12:06 PM CDT GLUCOSE - POINT OF CARE Routine 07/28/2022 7:41 AM CDT GLUCOSE - POINT OF CARE Routine 07/27/2022 9:06 PM CDT GLUCOSE - POINT OF CARE Routine 07/27/2022 4:36 PM CDT HOME O2 EVAL (DESATURATION SCREEN) Routine 07/27/2022 1:58 PM CDT GLUCOSE - POINT OF CARE Routine 07/27/2022 12:11 PM CDT GLUCOSE - POINT OF CARE Routine 07/27/2022 10:40 AM CDT GLUCOSE - POINT OF CARE Routine 07/27/2022 9:21 AM CDT TROPONIN I Timed 07/27/2022 2:44 AM CDT CBC W AUTO DIFFERENTIAL STAT 07/27/2022 2:44 AM CDT RENAL FUNCTION PANEL STAT 07/27/2022 2:44 AM CDT TROPONIN I Timed 07/26/2022 7:33 PM CDT BLOOD GASES ARTERIAL STAT 07/26/2022 5:56 PM CDT SARS-COV-2 (COVID-19)+INFLU A+B PCR RAPID STAT 07/26/2022 5:12 PM CDT LACTIC ACID BLOOD REFLEX TO REPEAT STAT 07/26/2022 4:53 PM CDT TROPONIN I STAT 07/26/2022 4:53 PM CDT D-DIMER STAT 07/26/2022 4:53 PM CDT PT-INR STAT 07/26/2022 4:53 PM CDT CBC W AUTO DIFFERENTIAL STAT 07/26/2022 4:53 PM CDT B-TYPE NATRIURETIC PEPTIDE STAT 07/26/2022 4:53 PM CDT COMPREHENSIVE METABOLIC PANEL STAT 07/26/2022 4:53 PM CDT MAGNESIUM BLOOD STAT 07/26/2022 4:53 PM CDT EKG 12-LEAD STAT 07/26/2022 4:28 PM CDT Acute hypoxemic respiratory failure (HCC) XR CHEST 1VW PORTABLE STAT 07/26/2022 3:59 PM CDT Acute hypoxemic respiratory failure (HCC) documented in this encounter Results * (ABNORMAL) GLUCOSE - POINT OF CARE (07/28/2022 5:37 PM CDT) Glucose WB/POC 156(H) 70 - 106 mg/dL 07/28/2022 5:42 PM CDT [facility] Specimen Type Cap Fingerstick 10/14/ 2022 5:42 PM CDT [facility] Blood BLOOD SPECIMEN / Unknown 07/28/2022 5:37 PM CDT 07/28/2022 5:42 PM CDT Bunny Birch MD LAB - POINT OF CARE ORDERABLES Performing Organization Address City/[facility]/ZIP Co de Phone Number [facility] [phone] [place] [phone] * (ABNORMAL) GLUCOSE - POINT OF CARE (07/28/2022 4:24 PM CDT) Glucose WB/POC 201(H) 70 - 106 mg/dL 07/28/2022 7:54 PM CDT [facility] Specimen Type Cap Fingerstick 2021 7:54 PM CDT [facility] Blood BLOOD SPECIMEN / Unknown 07/28/2022 4:24 PM CDT 07/28/2022 7:54 PM CDT Bunny Birch MD LAB - POINT OF CARE ORDERABLES Performing Organization Address [facility] Co de Phone Number [facility] [phone] [place] [phone] * (ABNORMAL) GLUCOSE - POINT OF CARE (07/28/2022 12:06 PM CDT) Glucose WB/POC 347(H) 70 - 106 mg/dL 07/28/2022 12:10 PM CDT [facility] Specimen Type Cap Fingerstick 2021 12:10 PM CDT [facility] Blood BLOOD SPECIMEN / Unknown 07/28/2022 12:06 PM CDT 07/28/2022 12:10 PM CDT Bunny Birch MD LAB - POINT OF CARE ORDERABLES Performing Organization Address City/[facility]/ZIP Co de Phone Number [facility] [phone] [place] [phone] * (ABNORMAL) GLUCOSE - POINT OF CARE (07/28/2022 7:41 AM CDT) Glucose WB/POC 256(H) 70 - 106 mg/dL 07/28/2022 8:14 AM CDT [facility] Specimen Type Cap Fingerstick 2021 8:14 AM CDT [facility] Blood BLOOD SPECIMEN / Unknown 07/28/2022 7:41 AM CDT 07/28/2022 8:14 AM CDT Bunny Birch MD LAB - POINT OF CARE ORDERABLES Performing Organization Address [facility] Co de Phone Number [facility] [phone] [place] [phone] * (ABNORMAL) GLUCOSE - POINT OF CARE (07/27/2022 9:06 PM CDT) Pathologist [facility] Glucose WB/POC 201(H) 70 - 106 mg/dL 07/28/2022 8:37 AM CDT [facility] Specimen Type Cap Fingerstick 2021 8:37 AM CDT [facility] Blood BLOOD SPECIMEN / Unknown 07/27/2022 9:06 PM CDT 07/28/2022 8:37 AM CDT Bunny Birch MD LAB - POINT OF CARE ORDERABLES Performing Organization Address [facility] de Phone Number [facility] [address] [place] [phone] * (ABNORMAL) GLUCOSE - POINT OF CARE (07/27/2022 4:36 PM CDT) Pathologist [facility] Glucose WB/POC 318(H) 70 - 106 mg/dL 07/27/2022 4:41 PM CDT [facility] Specimen Type Cap Fingerstick 2021 4:41 PM CDT [facility] Blood BLOOD SPECIMEN / Unknown 07/27/2022 4:36 PM CDT 07/27/2022 4:41 PM CDT Bunny Birch MD LAB - POINT OF CARE ORDERABLES Performing Organization Address City/[facility] Co de Phone Number [facility] [address] [place] [phone] * (ABNORMAL) GLUCOSE - POINT OF CARE (07/27/2022 12:11 PM CDT) Glucose WB/POC 276(H) 70 - 106 mg/dL 07/27/2022 12:17 PM CDT [facility] Specimen Type Cap Fingerstick 2021 12:17 PM CDT [facility] Blood BLOOD SPECIMEN / Unknown 07/27/2022 12:11 PM CDT 07/27/2022 12:17 PM CDT Bunny Birch MD LAB - POINT OF CARE ORDERABLES Performing Organization Address City/[facility]/ZIP Co de Phone Number [facility] [address] [place] [phone] * (ABNORMAL) GLUCOSE - POINT OF CARE (07/27/2022 10:40 AM CDT) Glucose WB/POC 362(H) 70 - 106 mg/dL 07/27/2022 10:44 AM CDT [facility] Specimen Type Cap Fingerstick 2021 10:44 AM CDT [facility] Blood BLOOD SPECIMEN / Unknown 07/27/2022 10:40 AM CDT 07/27/2022 10:44 AM CDT Bunny Birch MD LAB - POINT OF CARE ORDERABLES [facility] [address] [place] [phone] * (ABNORMAL) GLUCOSE - POINT OF CARE (07/27/2022 9:21 AM CDT) Glucose WB/POC 314(H) 70 - 106 mg/dL 07/27/2022 9:26 AM CDT [facility] Specimen Type Cap Fingerstick 2021 9:26 AM CDT [facility] Blood BLOOD SPECIMEN / Unknown 07/27/2022 9:21 AM CDT 07/27/2022 9:26 AM CDT Bunny Birch MD LAB - POINT OF CARE ORDERABLES [facility] [address] [place] [phone] * (ABNORMAL) RENAL FUNCTION PANEL (07/27/2022 2:44 AM CDT) Glucose 285(H) 70 - 105 mg/dL 07/27/2022 3:08 AM CDT [facility] Sodium 134(L) 136 - 145 mmol/L 07/27/2022 3:08 AM CDT [facility] Potassium 4.2 3.5 - 5.1 mmol/L 07/27/2022 3:08 AM CDT [facility] Chloride 95(L) 98 - 107 mmol/L 07/27/2022 3:08 AM CDT [facility] CO2 25 23 - 31 mmol/L 07/27/2022 3:08 AM CDT [facility] Calcium 8.9 8.4 - 10.4 mg/dL 07/27/2022 3:08 AM CDT [facility] Anion Gap 14 8 - 18 mmol/L 07/27/2022 3:08 AM CDT [facility] BUN 17 8.4 - 25.7 mg/dL 07/27/2022 3:08 AM CDT [facility] Creatinine 0.98 0.72 - 1.25 mg/dL 07/27/2022 3:08 AM CDT [facility] Albumin 3.9 3.2 - 4.6 gm/dL 07/27/2022 3:08 AM CDT [facility] Phosphorus 3.2 2.3 - 4.7 mg/dL 07/27/2022 3:08 AM CDT [facility] eGFR by CKD-EPI 87(L) >=90 mL/min/1.7 3 m2 07/27/2022 3:08 AM CDT [facility] Blood BLOOD SPECIMEN / Unknown Venipuncture / Unknown 07/27/2022 2:44 AM CDT 07/27/2022 2:51 AM CDT Divya Baugh MD LAB - CHEMISTRY [place] RAZO [facility] [address] [place] [address] * (ABNORMAL) CBC W AUTO DIFFERENTIAL (07/27/2022 2:44 AM CDT) [facility] WBC 10.2 4.4 - 10.7 x10E9/L 07/27/2022 2:55 AM CDT [facility] WBC Corrected 07/27/2022 2:55 AM CDT [facility] RBC 4.07 3.80 - 5.40 x10E12/L 07/27/2022 2:55 AM CDT [facility] Hemoglobin 12.2 12.0 - 17.6 gm/dL 07/27/2022 2:55 AM CDT [facility] Hematocrit 38.4 35.2 - 51.7 % 07/27/2022 2:55 AM CDT [facility] MCV 94.3 80.7 - 98.3 fl 07/27/2022 2:55 AM CDT [facility] MCH 30.0 26.7 - 34.0 pg 07/27/2022 2:55 AM CDT [facility] MCHC 31.8 30.8 - 35.9 gm/dL 07/27/2022 2:55 AM CDT [facility] Platelet Count 254 153 - 416 x10E9/L 07/27/2022 2:55 AM CDT [facility] RDW-CV 14.1 12.1 - 14.9 % 07/27/2022 2:55 AM CDT [facility] MPV 9.3(L) 9.4 - 12.9 fl 07/27/2022 2:55 AM CDT [facility] Neutrophils % 86.6(H) 44.0 - 73.0 % 07/27/2022 2:55 AM CDT [facility] Lymphocytes % 11.9(L) 20.0 - 43.0 % 07/27/2022 2:55 AM CDT [facility] Monocytes % 0.7(L) 5.0 - 13.0 % 07/27/2022 2:55 AM CDT [facility] Eosinophils % 0.0 0.0 - 6.0 % 07/27/2022 2:55 AM CDT [facility] Basophils % 0.2 0.0 - 2.0 % 07/27/2022 2:55 AM CDT [facility] Immature Granulocytes 0.6 0 - 1 % 07/27/2022 2:55 AM CDT [facility] Neutrophil Absolute 8.85(H) 2.01 - 7.14 x10E9/L 07/27/2022 2:55 AM CDT [facility] Lymphocytes Absolute 1.21 1.07 - 3.94 x10E9/L 07/27/2022 2:55 AM CDT [facility] Monocytes Absolute 0.07(L) 0.26 - 1.07 x10E9/L 07/27/2022 2:55 AM CDT [facility] Eosinophils Absolute 0.00 0 - 0.47 x10E9/L 07/27/2022 2:55 AM CDT [facility] Basophils Absolute 0.02 0 - 0.08 x10E9/L 07/27/2022 2:55 AM CDT [facility] Immature Granulocytes Absolute 0.06 0.00 - 0.06 x10E9/L 07/27/2022 2:55 AM CDT [facility] nRBC Auto 0 /100 WBC 07/27/2022 2:55 AM CDT [facility] Blood BLOOD SPECIMEN / Unknown Venipuncture / Unknown 07/27/2022 2:44 AM CDT 07/27/2022 2:51 AM CDT Divya Corado Datar LAB - HEMATOLOGY ORD ERABLES [facility] [address] [place] [phone] * TROPONIN I (07/27/2022 2:44 AM CDT) Troponin I <0.010 <0.038 ng/mL 07/27/2022 3:16 AM CDT [facility] Blood BLOOD SPECIMEN / Unknown Venipuncture / Unknown 07/27/2022 2:44 AM CDT 07/27/2022 2:51 AM CDT Chandler Houston DO LAB - CHEMISTRY ORDE DUNG [facility] [address] [place] [address] * TROPONIN I (07/26/2022 7:33 PM CDT) Pathologist [facility] Troponin I <0.010 <0.038 ng/mL 07/26/2022 7:57 PM CDT [facility] Blood BLOOD SPECIMEN / Unknown Venipuncture / Unknown 07/26/2022 7:33 PM CDT 07/26/2022 7:37 PM CDT Chandler Houston DO LAB - CHEMISTRY SARAHE DUNG [facility] [address] [place] [address] * (ABNORMAL) BLOOD GASES ARTERIAL (07/26/2022 5:56 PM CDT) Pathologist [facility] pH Arterial 7.43 7.35 - 7.45 pH 07/26/2022 6:07 PM CDT [facility] pO2 Arterial 74(L) 80 - 100 mmHg 07/26/2022 6:07 PM CDT [facility] pCO2 Arterial 50(H) 35 - 45 mmHg 07/26/2022 6:07 PM CDT [facility] HCO3 Arterial 33(H) 22 - 26 mmol/l 07/26/2022 6:07 PM CDT [facility] BE Arterial 7.5(H) -2.0 - 2.0 mmol/L 07/26/2022 6:07 PM CDT [facility] O2 Saturation Arterial 96 90 - 100 % 07/26/2022 6:07 PM CDT [facility] Kevin's Test Yes 07/26/2022 6:07 PM CDT [facility] Sample Site Left RA 07/26/2022 6:07 PM CDT [facility] O2 Device Cannula 07/26/2022 6:07 PM CDT [facility] Liter Flow (LPM) 3 07/26/2022 6:07 PM CDT [facility] Blood, arterial ARTERIAL BLOOD SPECIMEN / Unknown 07/26/2022 5:56 PM CDT 07/26/2022 5:56 PM CDT Divya Corado Datar LAB - BLOOD GASES OR DERABLES Performing Organization Address [facility] Co de Phone Number [facility] RES[facility] THERAPY [address] [place] [address] * SARS-COV-2 (COVID-19)+INFLU A+B PCR RAPID (07/26/2022 5:12 PM CDT) Pathologist [facility] COVID-19 PCR Not detected Not detected 07/26/20 5:54 PM CDT [facility] Influenza A PCR Not detected Not detected 07/26/2022 5:54 PM CDT [facility] Influenza B PCR Not detected Not detected 07/26/2022 5:54 PM CDT [facility] Microbiology SPECIMEN FROM NASOPHARYNGEAL STRUCTURE / Unknown Collection / Unknown 07/26/2022 5:12 PM CDT 07/26/2022 5:14 PM CDT Narrative [facility] - 07/26/2022 5:54 PM CDT This [...] - MICROBIOLOGY O RDERABLES Performing Organization Address [facility]/ZIP Co de Phone Number [facility] [address] [place] [address] * D-DIMER (07/26/2022 4:53 PM CDT) D-Dimer 0.30 0.27 - 0.50 ug/mL FEU 07/26/2022 5:21 PM CDT [facility] Blood BLOOD SPECIMEN / Unknown Venipuncture / Unknown 07/26/2022 4:53 PM CDT 07/26/2022 5:07 PM CDT Narrative [facility] - 07/26/2022 5:21 PM CDT In the absence of clinical symptoms, a value less than or equal to 0.5 mcg/mL FEU significantly decreases the probability of PE/DVT (negative predictive value >95%). 1 mcg/ml FEU = 1 Fibrinogen Equivalent Unit (approximates 0.5 mcg/mL of D- dimer). Chandler Houston DO LAB - COAGULATION OR DERABLES Performing Organization Address [facility]/ZIP Co de Phone Number [facility] [address] [place] [phone] * B-TYPE NATRIURETIC PEPTIDE (07/26/2022 4:53 PM CDT) BNP 90 <=100 pg/mL 07/26/2022 5:33 PM CDT [facility] Blood BLOOD SPECIMEN / Unknown Venipuncture / Unknown 07/26/2022 4:53 PM CDT 07/26/2022 5:08 PM CDT Chandler Zentyalyovana LAB - CHEMISTRY ORDE RABHibernater Performing Organization Address [facility] Co de Phone Number [facility] [phone] [place] [phone] * LACTIC ACID BLOOD REFLEX TO REPEAT (07/26/2022 4:53 PM CDT) Lactic Acid 0.77 <=2 mmol/L 07/26/2022 5:21 PM CDT [facility] Blood BLOOD SPECIMEN / Unknown Venipuncture / Unknown 07/26/2022 4:53 PM CDT 07/26/2022 5:06 PM CDT Chandler GI Track LAB - CHEMISTRY ORDE RABLES Performing Organization Address [facility] Co de Phone Number [facility] [phone] [place] [phone] * TROPONIN I (07/26/2022 4:53 PM CDT) [facility] Troponin I <0.010 <0.038 ng/mL 07/26/2022 5:31 PM CDT [facility] Blood BLOOD SPECIMEN / Unknown Venipuncture / Unknown 07/26/2022 4:53 PM CDT 07/26/2022 5:08 PM CDT Chandler Houston DO LAB - CHEMISTRY ORDE RABLES Performing Organization Address [facility] Co de Phone Number [facility] [phone] [place] [phone] * PT-INR (07/26/2022 4:53 PM CDT) [facility] PT 14.1 12.1 - 14.8 sec 07/26/2022 5:19 PM CDT [facility] INR 1.1 0.9 - 1.1 07/26/2022 5:19 PM CDT [facility] Blood BLOOD SPECIMEN / Unknown Venipuncture / Unknown 07/26/2022 4:53 PM CDT 07/26/2022 5:07 PM CDT Narrative [facility] - 07/26/2022 5:19 PM CDT Conventional Warfarin Anticoagulant Therapy: INR Reference Range: ??2.0-3.0 Intensive Warfarin Anticoagulant Therapy: INR Reference Range: ? 2.5-3.5 Chandler Houston DO LAB - COAGULATION OR DERABLES Performing Organization Address [facility] Co de Phone Number [facility] [phone] [place] [phone] * (ABNORMAL) MAGNESIUM BLOOD (07/26/2022 4:53 PM CDT) [facility] Magnesium 1.4(L) 1.6 - 2.6 mg/dL 07/26/2022 5:30 PM CDT [facility] Blood BLOOD SPECIMEN / Unknown Venipuncture / Unknown 07/26/2022 4:53 PM CDT 07/26/2022 5:08 PM CDT Chandler Houston DO LAB - CHEMISTRY SARAHE DUNG [facility] [address] [place] [address] * (ABNORMAL) COMPREHENSIVE METABOLIC PANEL (07/26/2022 4:53 PM CDT) Glucose 151(H) 70 - 105 mg/dL 07/26/2022 5:30 PM CDT [facility] Sodium 138 136 - 145 mmol/L 07/26/2022 5:30 PM CDT [facility] Potassium 4.0 3.5 - 5.1 mmol/L 07/26/2022 5:30 PM CDT [facility] Chloride 96(L) 98 - 107 mmol/L 07/26/2022 5:30 PM CDT [facility] CO2 29 23 - 31 mmol/L 07/26/2022 5:30 PM CDT [facility] Calcium 9.2 8.4 - 10.4 mg/dL 07/26/2022 5:30 PM CDT [facility] Anion Gap 13 8 - 18 mmol/L 07/26/2022 5:30 PM CDT [facility] BUN 13 8.4 - 25.7 mg/dL 07/26/2022 5:30 PM CDT [facility] Creatinine 0.94 0.72 - 1.25 mg/dL 07/26/2022 5:30 PM CDT [facility] Alkaline Phosphatase 90 40 - 150 U/L 07/26/2022 5:30 PM CDT [facility] ALT 10 0 - 61 U/L 07/26/2022 5:30 PM CDT [facility] AST 14 5 - 34 U/L 07/26/2022 5:30 PM CDT [facility] Protein Total 8.4(H) 6.4 - 8.3 gm/dL 07/26/2022 5:30 PM CDT [facility] Albumin 4.0 3.2 - 4.6 gm/dL 07/26/2022 5:30 PM CDT [facility] Bilirubin Total 0.6 0.2 - 1.2 mg/dL 07/26/2022 5:30 PM CDT [facility] eGFR by CKD-EPI >90 >=90 mL/min/1.7 3 m2 07/26/2022 5:30 PM CDT [facility] Blood BLOOD SPECIMEN / Unknown Venipuncture / Unknown 07/26/2022 4:53 PM CDT 07/26/2022 5:08 PM CDT Chandler Houston DO LAB - CHEMISTRY CHRISTIAN RAZO [facility] [address] [place] [address] * CBC W AUTO DIFFERENTIAL (07/26/2022 4:53 PM CDT) WBC 9.7 4.4 - 10.7 x10E9/L 07/26/2022 5:11 PM CDT [facility] WBC Corrected 07/26/2022 5:11 PM CDT [facility] RBC 3.94 3.80 - 5.40 x10E12/L 07/26/2022 5:11 PM CDT [facility] Hemoglobin 12.2 12.0 - 17.6 gm/dL 07/26/2022 5:11 PM CDT [facility] Hematocrit 36.7 35.2 - 51.7 % 07/26/2022 5:11 PM CDT [facility] MCV 93.1 80.7 - 98.3 fl 07/26/2022 5:11 PM CDT [facility] MCH 31.0 26.7 - 34.0 pg 07/26/2022 5:11 PM CDT [facility] MCHC 33.2 30.8 - 35.9 gm/dL 07/26/2022 5:11 PM CDT [facility] Platelet Count 254 153 - 416 x10E9/L 07/26/2022 5:11 PM CDT [facility] RDW-CV 14.0 12.1 - 14.9 % 07/26/2022 5:11 PM CDT [facility] MPV 9.4 9.4 - 12.9 fl 07/26/2022 5:11 PM CDT [facility] Neutrophils % 67.6 44.0 - 73.0 % 07/26/2022 5:11 PM CDT [facility] Lymphocytes % 21.8 20.0 - 43.0 % 07/26/2022 5:11 PM CDT [facility] Monocytes % 9.1 5.0 - 13.0 % 07/26/2022 5:11 PM CDT [facility] Eosinophils % 0.7 0.0 - 6.0 % 07/26/2022 5:11 PM CDT [facility] Basophils % 0.2 0.0 - 2.0 % 07/26/2022 5:11 PM CDT [facility] Immature Granulocytes 0.6 0 - 1 % 07/26/2022 5:11 PM CDT [facility] Neutrophil Absolute 6.57 2.01 - 7.14 x10E9/L 07/26/2022 5:11 PM CDT [facility] Lymphocytes Absolute 2.12 1.07 - 3.94 x10E9/L 07/26/2022 5:11 PM CDT [facility] Monocytes Absolute 0.89 0.26 - 1.07 x10E9/L 07/26/2022 5:11 PM CDT [facility] Eosinophils Absolute 0.07 0 - 0.47 x10E9/L 07/26/2022 5:11 PM CDT [facility] Basophils Absolute 0.02 0 - 0.08 x10E9/L 07/26/2022 5:11 PM CDT [facility] Immature Granulocytes Absolute 0.06 0.00 - 0.06 x10E9/L 07/26/2022 5:11 PM CDT [facility] nRBC Auto 0 /100 WBC 07/26/2022 5:11 PM CDT [facility] Blood BLOOD SPECIMEN / Unknown Venipuncture / Unknown 07/26/2022 4:53 PM CDT 07/26/2022 5:08 PM CDT Chandler Houston DO LAB - HEMATOLOGY ORD ERABLES [facility] [address] [place] [address] * EKG 12-LEAD (07/26/2022 4:28 PM CDT) Ventricular Rate 69 BPM [facility] Atrial Rate 69 BPM [facility] P-R Interval 156 ms [facility] QRS Duration ms 80 ms [facility] Q-T Interval ms 452 ms [facility] QTC Calculation (Bezet) 484 ms [facility] Calculated P [place] 55 degrees [facility] Calculated R [place] 40 degrees [facility] Calculated T [place] 102 degrees [facility] Interpretation EKG Sinus rhythm with occasional Premature ventricular complexes ST & T wave abnormality, consider lateral ischemia Abnormal ECG When compared with ECG of 04-SEP-2018 09:01, Premature ventricular complexes are now Present Confirmed by CADEN DAVIS, BARON CAMARA ([id number]) on 07/27/2022 7:04:49 AM [facility] 07/26/2022 4:28 PM CDT 07/27/2022 7:04 AM CDT Chandler Houston DO ECG ORDERABLES [facility] * XR CHEST 1VW PORTABLE (07/26/2022 3:59 PM CDT) Anatomical Region Laterality Modality Chest Radiographic Love ging 07/26/2022 4:08 PM CDT Impressions 07/26/2022 4:09 PM CDT IMPRESSION: 1. Stable cardiomegaly. No acute cardiopulmonary process is identified. > Interpreting Provider: Alexei Cruz DO on 07/26/2022 4:09 PM Narrative 07/26/2022 4:09 PM CDT PROCEDURE: ??XR CHEST 1VW PORTABLE, DATE/TIME OF EXAM: ??07/26/2022 4:00 PM, LOCATION ??[facility] INDICATION: Shortness of breath with weakness. COMPARISON: 09/04/2018. FINDINGS: Lungs are clear. Stable cardiomegaly. No vascular congestion. There is a midline sternotomy. Bony thorax is unremarkable. Procedure Note Alexei Cruz DO - 07/26/2022 PROCEDURE: XR CHEST 1VW PORTABLE, DATE/TIME OF EXAM: 07/26/2022 4:00PM, LOCATION [facility] INDICATION: Shortness of breath with weakness. COMPARISON: 09/04/2018. FINDINGS: Lungs are clear. Stable cardiomegaly. No vascular congestion. There is a midline sternotomy. Bony thorax is unremarkable. IMPRESSION: 1. Stable cardiomegaly. No acute cardiopulmonary process is identified. > Interpreting Provider: Alexei Cruz DO on 07/26/2022 4:09 PM Chandler Arvizuyovana [facility] O RDERABLES documented in this encounter Visit Diagnoses Diagnosis Acute hypoxemic respiratory failure (HCC) Mild intermittent asthma with acute exacerbation (HCC) Unspecified asthma, with exacerbation Acute hypoxemic respiratory failure (HCC) documented in this encounter Administered Medications Inactive Administered Medications - up to 3 most recent administrations Medication Order MAR Action Action Date Dose Rate Site 0.9% NaCl injection 1-10 mL 1-10 mL, Intracatheter, PRN, Other, peripheral line flush, Starting on Sun07/26/22 at 1841, Until Sun07/28/22 at 1857, Flush peripheral IV catheter with 1-10 mL of normal saline before and after medications and prn to clear blood from the line or to verify patency. $ Given 07/27/2022 2:24 AM CDT 3 mL 0.9% NaCl injection 3 mL 3 mL, Intracatheter, EVERY 8 HOURS, First dose on Sun07/26/22 at 2200, Until Discontinued, Flush peripheral IV catheter with 3 mL of normal saline every 8 hours. $ Given 07/28/2022 1:12 PM CDT 3 mL $ Given 07/28/2022 5:58 AM CDT 3 mL $ Given 07/27/2022 9:03 PM CDT 3 mL albuterol HFA (Proventil; Ventolin; Proair) 108 (90 Base) MCG/ACT inhaler 2 puff 2 puff, Inhalation, EVERY 6 HOURS, First dose (after last modification) on Sun07/27/22 at 0600, Until Discontinued, Shake well before using. WASTE DISPOSAL INSTRUCTION: Send to Pharmacy for Disposal. $ Given 07/27/2022 4:22 AM CDT 2 puffs albuterol HFA (Proventil; Ventolin; Proair) 108 (90 Base) MCG/ACT inhaler 2 puff 2 puff, Inhalation, EVERY 4 HOURS PRN, Shortness of Breath, Wheezing, Starting on Sun07/27/22 at 0430, Until Sun07/28/22 at 1857, Shake well before using. WASTE DISPOSAL INSTRUCTION: Send to Pharmacy for Disposal. $ Given 07/27/2022 8:36 PM CDT 2 puffs albuterol-ipratropium (Duo-Neb) nebulizer solution 3 mL 3 mL, Inhalation, NOW, 1 dose, On Sun07/26/22 at 1730 $ Given 07/26/2022 6:33 PM CDT 3 mL albuterol-ipratropium (Duo-Neb) nebulizer solution 3 mL 3 mL, Inhalation, EVERY 6 HOURS, First dose on Sun07/27/22 at 0600, Until Discontinued $ Given 07/28/2022 2:56 PM CDT 3 mL $ Given 07/28/2022 9:20 AM CDT 3 mL $ Given 07/28/2022 3:57 AM CDT 3 mL amLODIPine (Norvasc) tablet 10 mg 10 mg, Oral, AT BEDTIME, First dose on Sun07/26/22 at 2100, Until Discontinued $ Given 07/27/2022 9:01 PM CDT 10 mg $ Given 07/27/2022 2:20 AM CDT 10 mg aspirin chew tablet 81 mg 81 mg, Oral, DAILY, First dose on Sun07/26/22 at 1915, Until Discontinued $ Given 07/28/2022 8:55 AM CDT 81 mg $ Given 07/27/2022 8:06 AM CDT 81 mg atorvastatin (Lipitor) tablet 80 mg 80 mg, Oral, AT BEDTIME, First dose on Sun07/26/22 at 2100, Until Discontinued $ Given 07/27/2022 9:01 PM CDT 80 mg $ Given 07/27/2022 2:20 AM CDT 80 mg budesonide-formoterol (Symbicort) 160-4.5 MCG/ACT inhaler 2 puff 2 puff, Inhalation, 2 TIMES DAILY, First dose on Sun07/27/22 at 2100, Until Discontinued, Rinse mouth after usage . WASTE DISPOSAL INSTRUCTION: Send to Pharmacy for Disposal. . $ Given 07/28/2022 9:20 AM CDT 2 puffs $ Given 07/27/2022 8:38 PM CDT 2 puffs carvedilol (Coreg) tablet 25 mg 25 mg, Oral, 2 TIMES DAILY WITH MEALS, First dose on Sun07/26/22 at 1915, Until Discontinued, Take with food $ Given 07/28/2022 5:38 PM CDT 25 mg $ Given 07/28/2022 8:55 AM CDT 25 mg $ Given 07/27/2022 5:28 PM CDT 25 mg dextromethorphan-guaiFENesin ER 12hr (Mucinex DM) 30-600 MG tablet 1 tablet 1 tablet, Oral, 2 TIMES DAILY, First dose on Loreta 07/27/22 at 1430, Until Discontinued, Do not crush, chew, or cut in half. $ Given 07/28/2022 8:55 AM CDT 1 tablet $ Given 07/27/2022 9:01 PM CDT 1 tablet $ Given 07/27/2022 4:02 PM CDT 1 tablet dextrose 10 % IV bolus 12.5 g, at 468.75 mL/hr, Intravenous, PRN, Other, Bedside Glucose less than 70 mg/dL -If NOT able to eat and/or NPO and with IV Access, Starting on Sun07/26/22 at 1842, Until Sun07/28/22 at 1857, Due to national shortage of D50-- [facility] is substituting D50 with D10 with the same amount of ordered dextrose If NOT able to eat and/or NPO and with IV Access: For Bedside Glucose 54-69 mg/dL give 12.5 g (125 mL) D10W IV STAT over 16 min For Bedside Glucose LESS than 54 mg/dl verify with a second Bedside Glucose (from a different site) and give 25 g (250 mL) D10W IV STAT over 16 min Re-check and Re-treat blood glucose EVERY 10-25 minutes until blood glucose GREATER than or equal to 80 mg/dl. NOTIFY PROVIDER OF HYPOGLYCEMIC EVENT. dextrose 10 % IV bolus 25 g, at 937.5 mL/hr, Intravenous, PRN, Other, Bedside Glucose less than 70 mg/dL -If NOT able to eat and/or NPO and with IV Access, Starting on Sun07/26/22 at 1842, Until Sun07/28/22 at 1857, Due to national shortage of D50-- [facility] Pharmacy is substituting D50 with D10 with the same amount of ordered dextrose If NOT able to eat and/or NPO and with IV Access: For Bedside Glucose 54-69 mg/dL give 12.5 g (125 mL) D10W IV STAT over 16 min For Bedside Glucose LESS than 54 mg/dl verify with a second Bedside Glucose (from a different site) and give 25 g (250 mL) D10W IV STAT over 16 min Re-check and Re-treat blood glucose EVERY 10-25 minutes until blood glucose GREATER than or equal to 80 mg/dl. NOTIFY PROVIDER OF HYPOGLYCEMIC EVENT. enoxaparin (Lovenox) injection 40 mg 40 mg, Subcutaneous, DAILY AT 0600, First dose on Sun07/27/22 at 1045, Until Discontinued, (for prefilled syringes) do not expel air bubble from the syringe prior to the injection Remind Patient to not rub injection site. Could cause hematoma. $ Given 07/28/2022 5:10 AM CDT 40 mg Abd Left Upper Quadr ant $ Given 07/27/2022 1:04 PM CDT 40 mg Ab d Left Lower Quadrant glipiZIDE CR 24hr (Glucotrol XL) tablet 5 mg 5 mg, Oral, DAILY WITH BREAKFAST, First dose on Sun07/28/22 at 0800, Until Discontinued, Do not crush, chew, or cut in half. $ Given 07/28/2022 8:55 AM CDT 5 mg guaiFENesin (Robitussin) solution 10 mL 10 mL, Oral, EVERY 4 HOURS PRN, Cough, Starting on Sun07/27/22 at 1018, Until Sun07/28/22 at 1857 $ Given 07/27/2022 1:04 PM CDT 10 mL insulin aspart (NovoLOG) pen 0-18 Units 0-18 Units, Subcutaneous, 3 TIMES DAILY WITH MEALS, First dose on Sun07/27/22 at 1800, Until Discontinued, High Dose : Correction Insulin. Bedside glucose should be done within 30-60 minutes of correction insulin administration. BG (mg/dL) Corrective Action LESS than 70: follow Hypoglycemic guidelines, 70-140: NO Correction insulin, 141-180: GIVE 3 units of insulin, 181-220: GIVE 6 units of insulin, 221-260: GIVE 9 units of insulin, 261-300: GIVE 12 units of insulin, 301-350: GIVE 15 units of insulin, Greater than 350: GIVE 18 units of insulin and Notify Physician. If the patient is NPO: DO NOT HOLD correction insulin If patient is eating meals and has orders for Mealtime insulin, combine and give at the same time. $ Given 07/28/2022 5:39 PM CDT 3 Units Abd Left Lower Quadrant $ Given 07/28/2022 1:12 PM CDT 15 Units Le ft Arm $ Given 07/28/2022 8:56 AM CDT 9 Units Le ft Arm insulin aspart (NovoLOG) pen 0-6 Units 0-6 Units, Subcutaneous, 3 TIMES DAILY WITH MEALS, First dose on Loreta 07/27/22 at 0800, Until Discontinued, Low Dose: Correction Insulin Bedside glucose should be done within 30-60 minutes of correction insulin administration. BG (mg/dL) Corrective Action LESS than 70: follow Hypoglycemic guidelines, 70-180: NO Correction insulin, 181-220: GIVE 2 units of insulin, 221-260: GIVE 3 units of insulin, 261-300: GIVE 4 units of insulin, 301-350: GIVE 5 units of insulin, Greater than 350: GIVE 6 units of insulin and notify physician. If the patient is NPO: DO NOT HOLD correction insulin If patient is eating meals and has orders for Mealtime insulin, combine and give at the same time. $ Given 07/27/2022 1:04 PM CDT 4 Units Left Arm $ Given 07/27/2022 10:09 AM CDT 5 Units L eft Arm insulin aspart (NovoLOG) pen 0-7 Units 0-7 Units, Subcutaneous, AT BEDTIME, First dose on Loreta 07/27/22 at 2100, Until Discontinued, High Dose: Bedtime Correction Insulin Bedside glucose should be done within 30-60 minutes of correction insulin administration. BG (mg/dL) Corrective Action LESS than 70 follow Hypoglycemic guidelines, 71-180 NO bedtime correction insulin 181-220 GIVE 1 unit of insulin 221-260 GIVE 3 unit of insulin 261-300 GIVE 4 units of insulin 301-350 GIVE 6 units of insulin Greater than 350 GIVE 7 units of insulin and notify physician $ Given 07/27/2022 9:07 PM CDT 1 Units Abd Left Lower Quadrant losartan (Cozaar) tablet 100 mg 100 mg, Oral, DAILY, First dose on Sun07/26/22 at 1915, Until Discontinued $ Given 07/28/2022 8:55 AM CDT 100 mg $ Given 07/27/2022 8:05 AM CDT 100 mg magnesium sulfate 2 g in 50 mL bolus 2 g, at 25 mL/hr, Administer over 120 Minutes, Intravenous, NOW, 1 dose, On Sun07/26/22 at 1745, Infuse at 1 gm/hr $ New Bag/Syringe 07/26/2022 5:48 PM CDT 2 g 25 mL/hr methylPREDNISolone sod succ (SOLU-Medrol) injection 40 mg 40 mg, Intravenous, EVERY 8 HOURS, First dose on Sun07/26/22 at 2200, Until Discontinued $ Given 07/28/2022 1:11 PM CDT 40 mg $ Given 07/28/2022 5:59 AM CDT 40 mg $ Given 07/27/2022 9:01 PM CDT 40 mg methylPREDNISolone sod succ (SOLU-Medrol) injection 80 mg 80 mg, Intravenous, NOW, 1 dose, On Sun07/26/22 at 1730 $ Given 07/26/2022 5:47 PM CDT 80 mg spironolactone (Aldactone) tablet 25 mg 25 mg, Oral, DAILY, First dose on Sun07/26/22 at 1915, Until Discontinued $ Given 07/28/2022 8:55 AM CDT 25 mg $ Given 07/27/2022 8:05 AM CDT 25 mg documented in this encounter Active and Recently Administered Medications Times are shown in CDT. Scheduled Medication Order 07/26/2022 07/27/2022 07/28/2022 0.9% NaCl injection 3 mL(Linked Group 1) 3 mL, Intracatheter, EVERY 8 HOURS, First dose on Sun07/26/22 at 2200, Until Discontinued, Flush peripheral IV catheter with 3 mL of normal saline every 8 hours. 2200 (Due) 0440 (Not Administered - Provider: Ashleigh Jones RN - Reason: Documented on duplicate row)1306 ($ Given - Provider: Vania Simpson, ZACHARY)2103 ($ Given - Provider: Zeb Donaldson, ZACHARY) 0558 ($ Given - Provider: Zeb Donaldson, ZACHARY)1312 ($ Given - Provider: Vania Simpson, ZACHARY) albuterol HFA (Proventil; Ventolin; Proair) 108 (90 Base) MCG/ACT inhaler 2 puff (CANCELED) 2 puff, Inhalation, EVERY 6 HOURS, First dose (after last modification) on Sun07/27/22 at 0600, Until Discontinued, Shake well before using. WASTE DISPOSAL INSTRUCTION: Send to Pharmacy for Disposal. 0422 ($ Given - Provider: Hetal Martinez RCP) albuterol-ipratropium (Duo-Neb) nebulizer solution 3 mL (COMPLETED) 3 mL, Inhalation, NOW, 1 dose, On Sun07/26/22 at 1730 1833 ($ Given - Provider: Mis Reed VEHICLE OPERATOR TECHNICIAN) albuterol-ipratropium (Duo-Neb) nebulizer solution 3 mL 3 mL, Inhalation, EVERY 6 HOURS, First dose on Sun07/27/22 at 0600, Until Discontinued 0818 ($ Given - Provider: Fatmata Vasquez RCP)1332 ($ Given - Provider: Fatmata Vasquez RCP)2043 ($ Given - Provider: Ny Sen RCP) 0357 ($ Given - Provider: Ny Sen RCP)0920 ($ Given - Provider: Titus Campbell RCP)1456 ($ Given - Provider: iTtus Campbell RCP) amLODIPine (Norvasc) tablet 10 mg 10 mg, Oral, AT BEDTIME, First dose on Sun07/26/22 at 2100, Until Discontinued 219 ($ Given - Provider: Ashleigh Jones RN)2100 ($ Given - Provider: Zeb Donaldson, ZACHARY) aspirin chew tablet 81 mg 81 mg, Oral, DAILY, First dose on Sun07/26/22 at 1915, Until Discontinued 1914 (Due) 0806 ($ Given - Provider: Vania Simpson RN) 0855 ($ Given - Provider: Vania Simpson RN) atorvastatin (Lipitor) tablet 80 mg 80 mg, Oral, AT BEDTIME, First dose on Sun07/26/22 at 2100, Until Discontinued 219 ($ Given - Provider: Ashleigh Jones RN)2100 ($ Given - Provider: Zeb Donaldson, ZACHARY) budesonide-formoterol (Symbicort) 160-4.5 MCG/ACT inhaler 2 puff 2 puff, Inhalation, 2 TIMES DAILY, First dose on Sun07/27/22 at 2100, Until Discontinued, Rinse mouth after usage . WASTE DISPOSAL INSTRUCTION: Send to Pharmacy for Disposal. . 2037 ($ Given - Provider: Ny Sen RCP) 0920 ($ Given - Provider: Titus Campbell RCP) carvedilol (Coreg) tablet 25 mg 25 mg, Oral, 2 TIMES DAILY WITH MEALS, First dose on Sun07/26/22 at 1915, Until Discontinued, Take with food 191 (Due) 0805 ($ Given - Provider: Vania Simpson RN)1728 ($ Given - Provider: Vania Simpson RN) 0855 ($ Given - Provider: Vania Simpson RN)1738 ($ Given - Provider: Vania Simpson RN) dextromethorphan-guaiF ENesin ER 12hr (Mucinex DM) 30-600 MG tablet 1 tablet 1 tablet, Oral, 2 TIMES DAILY, First dose on Sun07/27/22 at 1430, Until Discontinued, Do not crush, chew, or cut in half. 1602 ($ Given - Provider: Vania Simpson RN)2101 ($ Given - Provider: Zeb Donaldson, ZACHARY) 0855 ($ Given - Provider: Vania Simpson RN) enoxaparin (Lovenox) injection 40 mg 40 mg, Subcutaneous, DAILY AT 0600, First dose on Sun07/27/22 at 1045, Until Discontinued, (for prefilled syringes) do not expel air bubble from the syringe prior to the injection Remind Patient to not rub injection site. Could cause hematoma. 1304 ($ Given - Provider: Vania Simpson RN) 0510 ($ Given - Provider: Zeb Donaldson, ZACHARY) glipiZIDE CR 24hr (Glucotrol XL) tablet 5 mg 5 mg, Oral, DAILY WITH BREAKFAST, First dose on Sun07/28/22 at 0800, Until Discontinued, Do not crush, chew, or cut in half. 0855 ($ Given - Provider: Vania Simpson RN) insulin aspart (NovoLOG) pen 0-18 Units 0-18 Units, Subcutaneous, 3 TIMES DAILY WITH MEALS, First dose on Sun07/27/22 at 1800, Until Discontinued, High Dose : Correction Insulin. Bedside glucose should be done within 30-60 minutes of correction insulin administration. BG (mg/dL) Corrective Action LESS than 70: follow Hypoglycemic guidelines, 70-140: NO Correction insulin, 141-180: GIVE 3 units of insulin, 181-220: GIVE 6 units of insulin, 221-260: GIVE 9 units of insulin, 261-300: GIVE 12 units of insulin, 301-350: GIVE 15 units of insulin, Greater than 350: GIVE 18 units of insulin and Notify Physician. If the patient is NPO: DO NOT HOLD correction insulin If patient is eating meals and has orders for Mealtime insulin, combine and give at the same time. 1727 ($ Given - Provider: Vania Simpson RN) 0856 ($ Given - Provider: Vania Simpson RN)1312 ($ Given - Provider: Vania Simpson RN)1739 ($ Given - Provider: Vania Simpson, ZACHARY) insulin aspart (NovoLOG) pen 0-6 Units (CANCELED) 0-6 Units, Subcutaneous, 3 TIMES DAILY WITH MEALS, First dose on Loreta 07/27/22 at 0800, Until Discontinued, Low Dose: Correction Insulin Bedside glucose should be done within 30-60 minutes of correction insulin administration. BG (mg/dL) Corrective Action LESS than 70: follow Hypoglycemic guidelines, 70-180: NO Correction insulin, 181-220: GIVE 2 units of insulin, 221-260: GIVE 3 units of insulin, 261-300: GIVE 4 units of insulin, 301-350: GIVE 5 units of insulin, Greater than 350: GIVE 6 units of insulin and notify physician. If the patient is NPO: DO NOT HOLD correction insulin If patient is eating meals and has orders for Mealtime insulin, combine and give at the same time. 1009 ($ Given - Provider: Vania Simpson RN)1304 ($ Given - Provider: Vania Simpson, ZACHARY) insulin aspart (NovoLOG) pen 0-7 Units 0-7 Units, Subcutaneous, AT BEDTIME, First dose on Loreta 07/27/22 at 2100, Until Discontinued, High Dose: Bedtime Correction Insulin Bedside glucose should be done within 30-60 minutes of correction insulin administration. BG (mg/dL) Corrective Action LESS than 70 follow Hypoglycemic guidelines, 71-180 NO bedtime correction insulin 181-220 GIVE 1 unit of insulin 221-260 GIVE 3 unit of insulin 261-300 GIVE 4 units of insulin 301-350 GIVE 6 units of insulin Greater than 350 GIVE 7 units of insulin and notify physician 2106 ($ Given - Provider: Zeb Donaldson, ZACHARY) losartan (Cozaar) tablet 100 mg 100 mg, Oral, DAILY, First dose on Sun07/26/22 at 1915, Until Discontinued 1914 (Due) 08 ($ Given - Provider: Vania Simpson RN) 0855 ($ Given - Provider: Vania Simpson RN) magnesium sulfate 2 g in 50 mL bolus (COMPLETED) 2 g, at 25 mL/hr, Administer over 120 Minutes, Intravenous, NOW, 1 dose, On Sun07/26/22 at 1745, Infuse at 1 gm/hr 1748 ($ New Bag/Syringe - Provider: Nina Arboleda)194 (Due: Stopped - Provider: Nina Arboleda) methylPREDNISolone sod succ (SOLU-Medrol) injection 40 mg 40 mg, Intravenous, EVERY 8 HOURS, First dose on Sun07/26/22 at 2200, Until Discontinued 022 ($ Given - Provider: Ashleigh Jones RN)0929 ($ Given - Provider: Vania Simpson RN)1304 ($ Given - Provider: Vania Simpson RN)210 ($ Given - Provider: Zeb Donaldson RN) 0559 ($ Given - Provider: Zeb Donaldson RN)1311 ($ Given - Provider: Vanai Simpson, ZACHARY) methylPREDNISolone sod succ (SOLU-Medrol) injection 80 mg (COMPLETED) 80 mg, Intravenous, NOW, 1 dose, On Sun07/26/22 at 1730 1747 ($ Given - Provider: Nina Arboleda) spironolactone (Aldactone) tablet 25 mg 25 mg, Oral, DAILY, First dose on Sun07/26/22 at 1915, Until Discontinued 1914 (Due) 08 ($ Given - Provider: Vania Simpson RN) 0855 ($ Given - Provider: Vania Simpson RN) PRN Medication Order 07/26/2022 07/27/2022 07/28/2022 0.9% NaCl injection 1-10 mL(Linked Group 1) 1-10 mL, Intracatheter, PRN, Other, peripheral line flush, Starting on Sun07/26/22 at 1841, Until Sun07/28/22 at 1857, Flush peripheral IV catheter with 1-10 mL of normal saline before and after medications and prn to clear blood from the line or to verify patency. 223 ($ Given - Provider: Britany Jones RN) albuterol HFA (Proventil; Ventolin; Proair) 108 (90 Base) MCG/ACT inhaler 2 puff 2 puff, Inhalation, EVERY 4 HOURS PRN, Shortness of Breath, Wheezing, Starting on Loreta 07/27/22 at 0430, Until Sun07/28/22 at 1857, Shake well before using. WASTE DISPOSAL INSTRUCTION: Send to Pharmacy for Disposal. 2035 ($ Given - Provider: Ny Sen RCP) dextrose 10 % IV bolus(Linked Group 2) 12.5 g, at 468.75 mL/hr, Intravenous, PRN, Other, Bedside Glucose less than 70 mg/dL -If NOT able to eat and/or NPO and with IV Access, Starting on Sun07/26/22 at 1842, Until Sun07/28/22 at 1857, Due to national shortage of D50-- [facility] is substituting D50 with D10 with the same amount of ordered dextrose If NOT able to eat and/or NPO and with IV Access: For Bedside Glucose 54-69 mg/dL give 12.5 g (125 mL) D10W IV STAT over 16 min For Bedside Glucose LESS than 54 mg/dl verify with a second Bedside Glucose (from a different site) and give 25 g (250 mL) D10W IV STAT over 16 min Re-check and Re-treat blood glucose EVERY 10-25 minutes until blood glucose GREATER than or equal to 80 mg/dl. NOTIFY PROVIDER OF HYPOGLYCEMIC EVENT. dextrose 10 % IV bolus(Linked Group 2) 25 g, at 937.5 mL/hr, Intravenous, PRN, Other, Bedside Glucose less than 70 mg/dL -If NOT able to eat and/or NPO and with IV Access, Starting on 07/26/22 at 1842, Until Sun07/28/22 at 1857, Due to national shortage of D50-- [facility] Pharmacy is substituting D50 with D10 with the same amount of ordered dextrose If NOT able to eat and/or NPO and with IV Access: For Bedside Glucose 54-69 mg/dL give 12.5 g (125 mL) D10W IV STAT over 16 min For Bedside Glucose LESS than 54 mg/dl verify with a second Bedside Glucose (from a different site) and give 25 g (250 mL) D10W IV STAT over 16 min Re-check and Re-treat blood glucose EVERY 10-25 minutes until blood glucose GREATER than or equal to 80 mg/dl. NOTIFY PROVIDER OF HYPOGLYCEMIC EVENT. glucagon (Glucagen) injection 1 mg 1 mg, Subcutaneous, PRN, Bedside Glucose less than 70 mg/dL - If NOT able to eat and/or NPO and withOUT IV Access, Starting on Sun07/26/22 at 1842, Until Sun07/28/22 at 185, If NOT able to eat and/or NPO and NO IV Access: For Bedside glucose 54-69 mg/dL - Give 1 mg SQ For Bedside Glucose LESS than 54 mg/dl - verify with a second bedside glucose (from a different site) - Give 1 mg SQ Re-check and Re-treat blood glucose EVERY 10-25 minutes until blood glucose GREATER than or equal to 80 mg/dl. NOTIFY PROVIDER OF HYPOGLYCEMIC EVENT. Reconstitute vial with 1 mL of sterile water for injection for a final concentration of 1 mg/mL; shake vial gently; use immediately and discard unused portion glucose (Diabetic Use) (Glucose) oral liquid Oral, PRN, Other, Bedside Glucose less than 70 mg/dL -If able to eat and does not have swallowing difficulties, Starting on Sun07/26/22 at 1842, Until Sun07/28/22 at 185, If able to eat and can swallow thin liquids: For Bedside Glucose 54 - 69 mg/dL Give 15 grams of oral carbohydrates - 1 glucose liquid (see MAR) If patient refuses glucose liquid, then offer: - 4 ounces of fruit juice OR - 4 ounces non-diet soda OR - 8 ounces of fat-free milk For Bedside Glucose LESS than 54 mg/dL - verify with a second Bedside Glucose (from a different site) - If pt is symptomatic, do not delay treatment - If accuracy of the POC glucose is in question, confirm glucose with a STAT laboratory test. Give 30 grams of oral carbohydrates - 2 glucose liquid (see MAR) If patient refuses glucose liquid, then offer: - 8 ounces of fruit juice OR - 8 ounces non-diet soda OR - 16 ounces of fat-free milk Re-check and Re-treat blood glucose EVERY 10-25 minutes until blood glucose GREATER than or equal to 80 mg/dl. - If on recheck, bedside glucose 54-79 mg/dL - Give 15 grams of oral carbohydrates (see above for choices) NOTIFY PROVIDER OF HYPOGLYCEMIC EVENT. glucose (Diabetic Use) oral gel Oral, PRN, Other, Bedside Glucose less than 70 mg/dL -If able to eat and does not have swallowing difficulties, Starting on Sun07/26/22 at 1842, Until Sun07/28/22 at 1857, If able to eat and is better able to swallow gel: For Bedside Glucose 54 - 69 mg/dL Give 15 grams of oral carbohydrates - 1 glucose gel (see MAR) If patient refuses glucose gel, then offer: - 4 ounces of fruit juice OR - 4 ounces non-diet soda OR - 8 ounces of fat-free milk For Bedside Glucose LESS than 54 mg/dL verify with a second Bedside Glucose (from a different site) - If pt is symptomatic, do not delay treatment - If accuracy of the POC glucose is in question, confirm glucose with a STAT laboratory test Give 30 grams of oral carbohydrates - 2 glucose gels (see MAR) If patient refuses glucose gel, then offer: - 8 ounces of fruit juice OR - 8 ounces non-diet soda OR - 16 ounces of fat-free milk Re-check and Re-treat blood glucose EVERY 10-25 minutes until blood glucose GREATER than or equal to 80 mg/dl. - If on recheck, bedside glucose 54-79 mg/dL - Give 15 grams of oral carbohydrates (see above for choices) NOTIFY PROVIDER OF HYPOGLYCEMIC EVENT. 1 tube delivers 15 grams dextrose/carbohydrates glucose chew tablet 4 tablet 4 tablet (16 g), Oral, PRN, Other, Bedside Glucose less than 70 mg/dL -If able to eat and does not have swallowing difficulties, Starting on Sun07/26/22 at 1842, Until Sun07/28/22 at 1857, If able to eat and does not have swallowing difficulties: For Bedside Glucose 54 - 69 mg/dL Give 16 grams of oral carbohydrates - 4 glucose tabs (see MAR) If patient refuses glucose tabs, then offer: - 4 ounces of fruit juice OR - 4 ounces non-diet soda OR - 8 ounces of fat-free milk For Bedside Glucose LESS than 54 mg/dL - verify with a second Bedside Glucose (from a different site) - If pt is symptomatic, do not delay treatment - If accuracy of the POC glucose is in question, confirm glucose with a STAT laboratory test. Give 32 grams of oral carbohydrates - 8 glucose tabs (see MAR) If patient refuses glucose gel, then offer: - 8 ounces of fruit juice OR - 8 ounces non-diet soda OR - 16 ounces of fat-free milk Re-check and Re-treat blood glucose EVERY 10-25 minutes until blood glucose GREATER than or equal to 80 mg/dl. - If on recheck, bedside glucose 54-79 mg/dL - Give 15 grams of oral carbohydrates (see above for choices). NOTIFY PROVIDER OF HYPOGLYCEMIC EVENT. guaiFENesin (Robitussin) solution 10 mL 10 mL, Oral, EVERY 4 HOURS PRN, Cough, Starting on Sun07/27/22 at 1018, Until Sun07/28/22 at 1857 1304 ($ Given - Provider: Vania Simpson RN) Linked Groups Order Group 1: SALINE LOCK, INSERT AND MAINTAIN (CANCELED) Routine, CONTINUOUS, Starting on Sun07/26/22 at 1845, Until Specified, New collection, Task Completed: Yes And 0.9% NaCl injection 3 mLJump to med 3 mL, Intracatheter, EVERY 8 HOURS, First dose on Sun07/26/22 at 2200, Until Discontinued, Flush peripheral IV catheter with 3 mL of normal saline every 8 hours. And 0.9% NaCl injection 1-10 mLJump to med 1-10 mL, Intracatheter, PRN, Other, peripheral line flush, Starting on Sun07/26/22 at 1841, Until Sun07/28/22 at 1857, Flush peripheral IV catheter with 1-10 mL of normal saline before and after medications and prn to clear blood from the line or to verify patency. Group 2: dextrose 10 % IV bolusJump to med 12.5 g, at 468.75 mL/hr, Intravenous, PRN, Other, Bedside Glucose less than 70 mg/dL -If NOT able to eat and/or NPO and with IV Access, Starting on Sun07/26/22 at 1842, Until Sun07/28/22 at 1857, Due to national shortage of D50-- [facility] Pharmacy is substituting D50 with D10 with the same amount of ordered dextrose If NOT able to eat and/or NPO and with IV Access: For Bedside Glucose 54-69 mg/dL give 12.5 g (125 mL) D10W IV STAT over 16 min For Bedside Glucose LESS than 54 mg/dl verify with a second Bedside Glucose (from a different site) and give 25 g (250 mL) D10W IV STAT over 16 min Re-check and Re-treat blood glucose EVERY 10-25 minutes until blood glucose GREATER than or equal to 80 mg/dl. NOTIFY PROVIDER OF HYPOGLYCEMIC EVENT. Or dextrose 10 % IV bolusJump to med 25 g, at 937.5 mL/hr, Intravenous, PRN, Other, Bedside Glucose less than 70 mg/dL -If NOT able to eat and/or NPO and with IV Access, Starting on Sun07/26/22 at 1842, Until Sun07/28/22 at 1857, Due to national shortage of D50-- [facility] Pharmacy is substituting D50 with D10 with the same amount of ordered dextrose If NOT able to eat and/or NPO and with IV Access: For Bedside Glucose 54-69 mg/dL give 12.5 g (125 mL) D10W IV STAT over 16 min For Bedside Glucose LESS than 54 mg/dl verify with a second Bedside Glucose (from a different site) and give 25 g (250 mL) D10W IV STAT over 16 min Re-check and Re-treat blood glucose EVERY 10-25 minutes until blood glucose GREATER than or equal to 80 mg/dl. NOTIFY PROVIDER OF HYPOGLYCEMIC EVENT. documented in this encounter Additional Health Concerns Infection Onset Date Last Indicated Resolved Time COVID-19 Under Investigation 07/26/2022 07/26/2022 07/26/2022 5:54 PM CDT documented as of this encounter Care Teams Food Service Relationship Specialty Start Date End Date Sylvain aDniels MD PCP - General Family Medicine 05/10/22 02/14/24 Sylvain Daniels MD [address] [place] [address] PCP - Attributed-[facility] Commercial 05/15/22 10/01/22 documented as of this encounter
--- OUTSIDE RECORDS SUMMARY | 2024-10-11 19:45 | XMS_ITS | Encounter Summary ---
Author Organization [facility] Health Address [address] [place] [address] Care Team Providers Care Land Law Examiner Name Role Phone Lisy Olmedo MD Primary Care Provide r Encounter Details Date Type Department Care Team (Late st Contact Info) Description 11/03/2020 Orders Only [facility] [address] [place] [address] Marlyn Monte, RN Social History Tobacco Use Types Packs/Day Years [...] Exposure Response Date Recorded In the last month, have you been in contact with someone who was confirmed or suspected to have Coronavirus / COVID-19? Unable to assess 10/05/2020 10:31 AM CS T documented as of this encounter Functional Status [...] st Contact Info) Description 10/20/2024 8:00 AM MASTER CONTROL ENGINEER Office Visit [facility] Health Medical Group - Family Medicine [address] [place] [phone] Kiana Cole MD [address] [place] [address] 11/28/2024 9:00 AM MASTER CONTROL ENGINEER Office Visit [facility]ician [facility] - Neurology [address] [facility] [place] [address] Aline Finch MD [address] [facility] [place] [address] 02/10/2025 10:00 AM CDT Office Visit [facility] - Cardiology [address] [facility] [phone] [place] [address] Curly Lay MD [id number] [place] [address] documented as of this encounter Visit Diagnoses Not on filedocumented in this encounter Care Teams Land Law Examiner Relationship Specialty Start Date End Date Lisy Olmedo MD PCP - General 04/20/09 05/09/22 documented as of this encounter
--- OUTSIDE RECORDS SUMMARY | 2024-10-11 19:45 | XMS_ITS | Encounter Summary ---
Author Organization [facility] Health Address [address] [place] [address] Care Team Providers Care Dredge Mate Name Role Phone Lisy Olmedo MD Primary Care Provide r Reason for Visit * Reason Onset Date Comments MEDICATION REFILL 12/29/2020 Encounter Details Date Type Department Care Team (Late st Contact Info) Description 12/29/2020 Refill [facility] Family and Community Medicine [address] [address] Lisy Olmedo MD [facility] [place] [address] MEDICATION REFILL Social History Tobacco Use Types [...] st Contact Info) Description 10/20/2024 8:00 AM SLAG EXPANDER Office Visit [facility] Health Medical Group - Family Medicine [address] [place] [address] Kiana Cole MD [address] [place] [address] 11/28/2024 9:00 AM SLAG EXPANDER Office Visit [facility] Physician Group - Neurology [address] [facility], [place] [address] Aline Finch MD [address] [facility] 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
--- OUTSIDE RECORDS SUMMARY | 2024-10-11 19:45 | XMS_ITS | Encounter Summary ---
Author Organization [facility] Health Address [address] [place] [address] Care Team Providers Care Cooling Machine Operator Name Role Phone Lisy Olmedo MD Primary Care Provide r Reason for Visit * Reason Onset Date Comments Transitional Care 09/10/2018 D/C 09/06/18 Wyatt NAVARRETE Encounter Details Date Type Department Care Team (Latest Contact Info) Description 09/10/2018 Transitional Care [address] [address] Daja Amado RN Transitional Care (D/C 09/06/18 DEPAUL) Social History Tobacco Use Types Packs/Day Years [...] encounter Miscellaneous Notes * Telephone Encounter - Lisy Olmedo MD - 10/01/2018 1:31 PM ELECTRICIAN THIRD Let pt know that an ultrasound has been ordered of her leg TRICIAN THIRD * Telephone Encounter - Daja Amado RN - 09/11/2018 1:15 PM CST Rtn'd call to pt per his request. TCM call completed. Pt works split shift & requires very specific f/u appt time of 11:30 am. Scheduled for 08/17/19 after the first of the year when his ins will be re- instated. Reports he has adequate home supply of medications as well as diabetic supplies until f/u appt. Agrees to contact office w/any interim questions or concerns. Physician to address items 1 through 4 below: 1. Med Reconciliation completed. Please see Meds & Order section for specific details and areasof concerns including. No concerns at this time Have you filled all your prescriptions?: Yes 2. Orders/concerns: 3. Please enter dotphrase TCMPROVIDER 4. Please Close Encounter ---------Encounter Note Complex Needs Assessment Score: Level of Care: Depression Screening: PHQ-2: PHQ-9: Discharge Follow Up Phone Call [facility]: [place], [place] Most recent hospital / facility discharge date: 09/06/18 Discharged to: home Diagnosis: Reason for call: IP follow up Health Status Does patient correctly re-state their DX?: Yes Pt is able to correctly state D/C Instructions, including S/S to watch for and who to contact for worsening symptoms?: Yes Overall, how would you say you were feeling since discharge?: Better Any new medical concerns since you were discharged?: No Clarification of Physician Appointments and Lab Tests PCP: Lisy Olmedo MD Have you made a follow up physician appointment within the recommended days of DC?: No Coordination of Appointments / Transportation Do you have transportation to get to your appointment?: Yes Coordination of Home Services / Social History Do you currently have Home Health care?: No Equipment At Home: Blood Glucose Monitor Additional educational topics for the patient and/or caregivers: concerning community resources, self-management of their medical condition, or activities of daily living: Interventions: Referrals: Yaya Cummins was given the opportunity to ask questions. Answers were provided. Daja Amado RN 09/11/2018 1:18 PM TRICIAN THIRD * Telephone Encounter - Daja Amado RN - 09/10/2018 4:08 PM CST Contacted pt for TCM but he is driving & requests cb tomorrow aftn. TRICIAN THIRD documented in this encounter Plan of Treatment Upcoming Encounters Date Type Department Care Team (Late st Contact Info) Description 10/20/2024 8:00 AM ELECTRICIAN THIRD Office Visit [facility] Medical Group - Family Medicine [address] [facility] [address] [place] [phone] Kiana Cole MD [address] [place] [address] 11/28/2024 9:00 AM ELECTRICIAN THIRD Office Visit [facility] Physician Group - Neurology [address] [facility] [place] [phone] Aline Finch MD [address] [facility] [place] [address] 02/10/2025 10:00 AM CDT Office Visit [facility] Physician Group - Cardiology [address] [facility] [address] [place] [phone] Curly Lay MD [address] [place] [address] documented as of this encounter Visit Diagnoses Not on filedocumented in this encounter Care Teams Cooling Machine Operator Relationship Specialty Start Date End Date Lisy Olmedo MD PCP - General 04/20/09 05/09/22 documented as of this encounter
--- OUTSIDE RECORDS SUMMARY | 2024-10-11 19:45 | XMS_ITS | Encounter Summary ---
Author Organization [facility] Health Address [address] [place] [address] Care Team Providers Care Motorboat Mechanic Name Role Phone Lisy Olmedo MD Primary Care Provide r Reason for Visit * Reason Onset Date Comments General 04/20/2020 Encounter Details Date Type Department Care Team (Late st Contact Info) Description 04/20/2020 Telephone [facility] Family and Community Medicine [address] [address] Lisy Olmedo MD [address] [place] [address] General Social History Tobacco Use Types Packs/Day Years [...] Telephone Encounter - Lisy Olmedo MD - 04/20/2020 1:39 PM CDT Received notification from insurance [employer] that Metformin recalled Called pt Advised pt to contact pharmacy and find out if his lot number of metformin is involved in recall. documented in this encounter Plan of Treatment Upcoming Encounters Date Type Department Care Team (Late st Contact Info) Description 10/20/2024 8:00 AM MOLD SETTER Office Visit [facility] Medical Group - Family Medicine [address] [facility] [address] [place] [phone] Kiana Cole MD [address] [place], [place] [phone] 11/28/2024 9:00 AM MOLD SETTER Office Visit [facility] Physician Group - Neurology [address] [facility] [place] [address] Aline Finch MD [address] [facility] [place] [address] 02/10/2025 10:00 AM CDT Office Visit [facility] Physician Group - Cardiology [address] [facility] [address] [place] [address] Curly Lay MD [address] [place] [address] documented as of this encounter Visit Diagnoses Not on filedocumented in this encounter Care Teams Motorboat Mechanic Relationship Specialty Start Date End Date Lisy Olmedo MD PCP - General 04/20/09 05/09/22 documented as of this encounter
--- OUTSIDE RECORDS SUMMARY | 2024-10-11 19:45 | XMS_ITS | Encounter Summary ---
Author Organization [facility] Address [address] [place] [address] Care Team Providers Care Bargain Table Clerk Name Role Phone Sylvain Daniels MD Primary Care Provider [phone] Reason for Visit * Reason Comments Establish Care Encounter Details Date Type Department Care Team (Late st Contact Info) Description 05/10/2022 10:00 AM CDT Office Visit [facility] - Family Medicine [address] [place] [id number] Sylvain Daniels MD [address] [place] [address] Physical exam, routine (Primary Dx); Encounter to establish care with new doctor; Essential hypertension; S/P CABG x 3; Low serum potassium; Type 2 diabetes mellitus with other circulatory complication, without long-term current use of insulin (HCC); Hyperlipidemia, unspecified hyperlipidemia type; Morbid obesity with BMI of 40.0-44.9, adult (HCC); MONTY on CPAP; Tobacco use; Localized edema; Neuropathy; Tinea pedis of both feet; Onychomycosis; Prostate cancer screening; Need for pqvrllstoc-lzmkvvz-nuh tussis (Tdap) vaccine; Need for vaccination for Strep pneumoniae Social History Tobacco Use Types Packs/Day Years [...] Sign Reading Time Taken Comments Blood Pressure 178/144 05/10/2022 10:23 AM CDT Pulse 68 05/10/2022 10:23 AM CDT Temperature 37.5 ??C (99.5 ??F) 05/10/2022 1 0:23 AM CDT Respiratory Rate 24 05/10/2022 10:2 3 AM CDT Oxygen Saturation 98% 05/10/2022 10: 23 AM CDT Inhaled Oxygen Concentration - - Weight 150.2 kg (331 lb 3.2 oz) 022 10:23 AM CDT Height 188 cm (6' 2 ) 05/10/2022 10:23 AM CDT Body Mass Index 42.52 05/10/2022 10:23 AM CDT documented in this encounter Functional [...] Progress Notes * Sylvain Daniels MD - 05/10/2022 10:53 AM CDT Images from the original note were not included. Office Visit, New Patient, Physical HISTORY: (4+ elements or 3+ chronic) CC & HPI: Yaya Solorio is a 61 year old male established patient, here for: Chief Complaint Patient presents with ??? Establish Care HPI Pt presents to clinic to est PCP. Prior PCP, Dr. Olmedo. CAD with 3V CABG in 2018. Pt does not follow with cardiology. Currently taking ASA 81mg and atorvastatin 80mg. Pt with HTN currently prescribed Losartan 100mg, amlodipine 10mg, carvedilol 25mg bid, spironolactone 25mg. Pt notes poor medication compliance. Denies home BP monitoring. Pt with concern of chronic bilateral LE Edema. Denies concern of CP, SOB, dizziness. Pt with DMII currently prescribed glipizide CR 5mg and metformin 1000mg bid. Pt with POC HbA1c 6.7 today. Prior POC HbA1c from 02/24/21 at 6.1. Denies home glucose monitoring. Pt with chronic bilateral plantar foot paresthesia burning sensation. Pt notes prior podiatry follow up for routine DM foot care. Denies prior medication tx of neuropathy. Pt with MONTY on CPAP. 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 Pt denies sleep medicine follow up. Pt with morbid obesity with BMI at 42.5. Pt recently seen at [facility] ER on 12/14/21 with near syncope. On review of labs pt with noted hyopkalemia with value at 2.9. Pt with K replacement in ER however denies current K supplement. Pt reports 4 prior COVID-19 vaccines. Pt with last colonoscopy from 11/12/20 normal with rec for 10 year f/u. Last PSA on chart from 09/2014 at 1.4. Tobacco use with rare cigars 1x/month. Current ETOH intake at 10 drinks/wk. I have reviewed the medications listed in the patient's chart. Review of Systems (2 - 9) Review of Systems Constitutional: Negative for chills, fever and malaise/fatigue. HENT: Negative for congestion, ear pain, hearing loss, sinus pain and sore throat. Eyes: Negative for blurred vision and photophobia. Respiratory: Negative for cough, sputum production, shortness of breath and wheezing. Cardiovascular: Negative for chest pain, palpitations and leg swelling. Gastrointestinal: Negative for abdominal pain, blood in stool, constipation, diarrhea, nausea and vomiting. Genitourinary: Negative for dysuria and flank pain. Musculoskeletal: Negative for joint pain and myalgias. Skin: Negative for itching and rash. Neurological: Positive for sensory change (bilateral foot burning ). Negative for dizziness, weakness and headaches. Psychiatric/Behavioral: Negative for depression. The patient is not nervous/anxious. PFSH, other pertinent history: (1 required) Past Medical History: Diagnosis Date ??? Anemia 01/2018 ??? Asthma ??? Chest congestion 08/05/2020 ??? Confusional arousals 08/05/2020 ??? Controlled type 2 diabetes mellitus without complication, without long-term current use of insulin 09/28/2011 ??? Coronary artery disease involving [place] heart with angina pectoris 09/04/2018 ??? Cough [...] each of 6 organ systems) BP (!) 178/144 Pulse 68 Temp 99.5 ??F (37.5 ??C) Resp 24 Ht 1.88 m (6' 2 ) Wt (!) 150.2 kg (331 lb 3.2 oz) SpO2 98% BMI 42.52 kg/m?? Physical Exam Vitals and nursing note reviewed. Constitutional: General: He is not in acute distress. Appearance: Normal appearance. He is obese. He is not ill-appearing, toxic- appearing or diaphoretic. HENT: Head: Normocephalic and atraumatic. Right Ear: Tympanic membrane, ear canal and external ear normal. There is no impacted cerumen. Left Ear: Tympanic membrane, ear canal and external ear normal. There is no impacted cerumen. Nose: Nose normal. No congestion or rhinorrhea. Mouth/Throat: Mouth: Mucous membranes are moist. Pharynx: Oropharynx is clear. No oropharyngeal exudate or posterior oropharyngeal erythema. Eyes: General: No scleral icterus. Right eye: No discharge. Left eye: No discharge. Conjunctiva/sclera: Conjunctivae normal. Neck: Thyroid: No thyromegaly. Trachea: No tracheal deviation. Cardiovascular: Rate and Rhythm: Normal rate and regular rhythm. Heart sounds: Normal heart sounds. No murmur heard. No friction rub. No gallop. Pulmonary: Effort: Pulmonary effort is normal. No respiratory distress. Breath sounds: Normal breath sounds. No stridor. No wheezing, rhonchi or rales. Abdominal: General: There is no distension. Palpations: Abdomen is soft. There is no mass. Tenderness: There is no abdominal tenderness. There is no guarding or rebound. Musculoskeletal: General: No tenderness or deformity. Normal range of motion. Cervical back: Normal range of motion and neck supple. Right lower leg: Edema present. Left lower leg: Edema present. Lymphadenopathy: Cervical: No cervical adenopathy. Skin: General: Skin is warm and dry. Coloration: Skin is not jaundiced. Findings: No bruising, erythema or rash. Comments: BILATERAL FOOT EXAM: Visual inspection: Toenail hypertrophy and yellow discoloration, mild foot skin scale Sensory exam with monofilament: abnormal - bilateral reduced sensation Pulse exam: 2+ Neurological: Mental Status: He is alert and oriented to person, place, and time. Motor: No weakness. Coordination: Coordination normal. Gait: Gait is intact. Gait normal. Psychiatric: Mood and Affect: Mood and affect normal. Behavior: Behavior normal. ECHOCARDIOGRAM 2D WITH DOPPLER Order: [id number] Status: Final result ?? Visible to patient: Yes (seen) ?? Next appt: None ?? Dx: Other chest pain ?? 0 Result Notes Narrative & Impression [address] [address] Transthoracic Echocardiogram 2D, M-mode, Doppler, and Color Doppler Patient: YAYA SOLORIO MR number: [id number] Height: 75 in Weight: 330 lb BSA: 2.72 m?? Study date: 06-Sep-2018 : 1960 Age: 57 years Gender: Male Race: Black Allergies: LISINOPRIL, PENICILLINS, PENICILLIN V Diagnoses: R07.89 - Other chest pain Reading Physician: Jose Jonas MD Referring Physician: Jose Jonas MD MORNING NEWS PRODUCER: Mirna Llanos RDCS Cardiology Group: [facility] Summary: - History: - CAD - Left ventricle: - Systolic function was at the lower limits of normal. Ejection fraction was estimated to be 50 %. - There were no regional wall motion abnormalities. - Wall thickness was normal. Indications: Evaluate chest pain. History: Prior history: CAD Risk factors: hypertension. Diabetes. Procedure: The study was performed in the [facility]. This was a routine study. The transthoracic [...] cm Lateral e': 0.1 m/s MV A Ramirez: 0.7 m/s MV Dec [place]: 4.6 m/s2 MV E Ramirez: 0.9 m/s MV E/A Ratio: 1.4 Septal e': 0 m/s Prepared and signed by Jose Jonas MD Signed 07-Sep-2018 09:12:59 Specimen Collected: 09/06/18 10:15 Last Resulted: 09/07/18 09:13 Comprehensive metabolic panel Order: [id number] Component Ref Range & Units 4 mo ago Sodium 135 - 145 mmol/L 139 Potassium, pl 3.3 - 4.9 mmol/L 2.9??Critical?? Comment: Critical Result called to and read back by alethea morrison (), DATE: 2021-12-14 18:55:30 BY: stephanie carolina Chloride 97 - 110 mmol/L 98 CO2 22 - 32 mmol/L 26 Anion gap 2 - 15 mmol/L 16??High?? BUN 8 - 25 mg/dL 11 Creatinine 0.80 - 1.30 mg/dL 0.96 Glucose 70 - 199 mg/dL 139 Comment: Interpretive Data Fasting glucose >/= 126 mg/dl is diagnostic for diabetes. ?? Fasting is defined as no caloric intake for at least 8 hours. Fasting glucose between 100 mg/dl to 125 mg/dl is diagnostic of prediabetes. In a patient with classic symptoms of hyperglycemia or hyperglycemic crisis, a random glucose >/= 200 mg/dl is diagnostic for diabetes. In the absence of unequivocal hyperglycemia, results should be confirmed by repeat testing. The classification and Diagnosis of Diabetes Diabetes Care 2017;40 (Suppl. 1):S11. Current interpretive data was last revised 2017. Calcium 8.5 - 10.3 mg/dL 8.4??Low?? Bilirubin, total 0.1 - 1.2 mg/dL 0.2 Protein, pl 6.5 - 8.5 g/dL 7.9 Albumin 3.5 - 5.0 g/dL 3.9 Alk phos 40 - 130 Units/L 63 ALT 7 - 55 Units/L 15 AST 10 - 50 Units/L 28 Resulting Agency [facility] Specimen Collected: 12/14/21 18:07 Last Resulted: 12/14/21 18:55 Received From: [facility] Result Received: 12/15/21 00:16 ??suggestion?? Information displayed in this report may not trend or trigger automated decision support. ??Contains abnormal data??CBC with auto differential Order: [id number] Component Ref Range & Units 4 mo ago WBC 3.8 - 9.9 K/cumm 7.5 Hgb 13.0 - 17.5 g/dL 12.6??Low?? Hct 38.9 - 50.3 % 38.2??Low?? Plt 150 - 400 K/cumm 206 MPV 9.1 - 12.3 fL 10.0 RBC 4.30 - 5.80 M/cumm 4.21??Low?? MCV 81.3 - 96.4 fL 90.7 MCH 27.1 - 33.3 pg 29.9 MCHC 32.3 - 35.7 g/dL 33.0 RDW CV 11.1 - 14.9 % 13.8 RDW SD 35.7 - 48.1 fL 45.8 NRBC abs 0.00 - 0.01 K/cumm 0.00 Resulting Agency [facility] Specimen Collected: 12/14/21 18:07 Last Resulted: 12/14/21 18:17 Received From: [facility] Result Received: 12/15/21 00:16 ENDOSCOPY, COLON, SCREENING Order: [id number] Status: Edited Result - FINAL ?? Visible to patient: Yes (seen) ?? Next appt: 07/14/2022 at 11:40 AM in Family Medicine (Sylvain Daniels MD) ?? 0 Result Notes ?? 1 Topic Component 1 yr ago Report Endoscopy POC Endoscopy Department Report _ Patient Name: Yaya Solorio ??Procedure Date: 11/12/2020 12:12 PM ? Date of : 1960 Classification: Outpatient ?Gender: Male Ethnicity: Not or ? Race: Black or _ ?? Providers: ?Jodi Vernon MD, Lukas Gagnon (Fellow) Referring MD: ? Lisy Olmedo MD (Referring MD) Procedure: ?Colonoscopy Indications: ?Screening for colorectal malignant neoplasm Medications: ?Monitored Anesthesia Care Description of Procedure: Pre-Anesthesia Assessment: ? - Prior to the procedure, a History and Physical ? was performed, and patient medications and ? allergies were reviewed. The patient's tolerance of ? previous anesthesia was also reviewed. The risks ? and benefits of the procedure and the sedation ? options and risks were discussed with the patient. ? All questions were answered, and informed consent ? was obtained. Prior Anticoagulants: The patient has ? taken no previous anticoagulant or antiplatelet ? agents. ASA Grade Assessment: III - A patient with ? severe systemic disease. After reviewing the risks ? and benefits, the patient was deemed in ? satisfactory condition to undergo the procedure. ? After I obtained informed consent, the scope was ? passed under direct vision. Throughout the ? procedure, the patient's blood pressure, pulse, and ? oxygen saturations were monitored continuously. The ? [id number]-[id number] was introduced through the anus and ? advanced to the terminal ileum. The colonoscopy was ? performed without difficulty. The patient tolerated ? the procedure well. The quality of the bowel ? preparation was good. The terminal ileum, ileocecal ? valve, appendiceal orifice, and rectum were ? photographed. ? Findings: ?The perianal and digital rectal examinations were normal. ?Internal hemorrhoids were found during retroflexion. The hemorrhoids ?were mild. ?The exam was otherwise without abnormality. ?The terminal ileum appeared normal. ? Estimated Blood Loss: ? Estimated blood loss: none. Complications: ?No immediate complications. Impression: ? - Internal hemorrhoids. ? - The examination was otherwise normal. ? - The examined portion of the ileum was normal. ? - No specimens collected. ? - High blood pressure noted before the procedure. Recommendation: ? - Patient has a contact number available for ? emergencies. The signs and symptoms of potential ? delayed complications were discussed with the ? patient. Return to normal activities tomorrow. ? Written discharge instructions were provided to the ? patient. ? - Resume previous diet. ? - Continue present medications. ? - Repeat colonoscopy in 10 years for screening ? purposes. ? - Return to primary care physician as previously ? scheduled. Please discuss blood pressure management ? with your PCP. ? Attending Participation: ??I was present and participated during the entire ? procedure, including non-paula portions. ? Procedure Code(s): ?--- Professional --- ?G0121, Colorectal cancer screening; colonoscopy on individual not ?meeting criteria for high risk Diagnosis Code(s): ?--- Professional --- ? Z12.11, Encounter for screening for malignant ? neoplasm of colon ? K64.8, Other hemorrhoids CPT copyright 2019 [employer]. All rights reserved. The codes documented in this report are preliminary and upon chaplain resident review may be revised to meet current compliance requirements. Jodi Vernon MD 11/12/2020 12:57:40 PM Note Initiated On: 11/12/2020 12:12 PM Number of Addenda: 0 ?[facility] ?[address] [place] [address] Resulting Agency [facility] Specimen Collected: 11/12/20 12:12 Last Resulted: 11/12/20 12:58 ASSESSMENT: 1. Physical exam, routine 2. Encounter to establish care with new doctor 3. Essential hypertension 4. S/P CABG x 3 5. Low serum potassium 6. Type 2 diabetes mellitus with other circulatory complication, without long- term current use of insulin 7. Hyperlipidemia, unspecified hyperlipidemia type 8. Morbid obesity with BMI of 40.0-44.9, adult 9. MONTY on CPAP 10. Tobacco use 11. Localized edema 12. Neuropathy 13. Tinea pedis of both feet 14. Onychomycosis 15. Prostate cancer screening 16. Need for kvxxwcjqrj-gqdemai-hnltyrrkm (Tdap) vaccine 17. Need for vaccination for Strep pneumoniae Hx reviewed, est PCP. Vaccinations reviewed with pt completing COVID-19 vaccine, including #4 booster. Attempt to obtain dates of COVID-19 vaccines. Last Td on chart from 2007, pt declines booster today. Pt has not obtained shingles vaccine and declines today. Fasting labs ordered- lipids, BMP, BNP, Urine microalbumin, PSA Colon CA screening up to date. The natural history of prostate cancer and ongoing controversy regarding screening and potential treatment outcomes of prostate cancer has been discussed with the patient. The meaning of a false positive PSA and a false negative PSA has been discussed. He indicates understanding of the limitations of this screening test and wishes to proceed with screening PSA testing. HTN: BP elevated today with reported poor medication compliance. Provided refill of current antihypertensives. Pt to start home BP monitoring and contact office in 1-2 weeks to review values. Goal BP< 130/80. CAD s/p CABG: pt to re est care with Cardiology, referral placed. Low K: f/u BMP DMII: HbA1c slightly increased from baseline. Pt to ensure medication compliance and encouraged lowglycemic diet, increased PE and weight loss. Pt to start home fasting glucose monitoring. HLD: cont statin tx. Morbid Obesity: BMI of 42.5. The patient is advised to begin progressive daily aerobic exercise program, follow a low fat, low cholesterol diet, attempt to lose weight, decrease or avoid alcohol intake, reduce salt in diet and cooking and reduce exposure to stress. MONTY on CPAP: cont PAP tx and referral placed to f/u with Sleep medicine. LE edema: chronic. Ordered BNP. Pt with normal ECHO from 2018. Pt desires to hold spironolactone due to poor effect for edema. Pt to restart BP tx and consider re starting spironolactone if BP valuesremain above goal. Neuropathy/ tinea pedis/onychomycosis: pt to re est care with Podiatry, referral placed. PLAN: Orders Placed This Encounter ??? BNP [B-TYPE NATRIURETIC PEPTIDE] Order Specific Question: Release to patient Answer: Immediate ??? BASIC METABOLIC PANEL (BMP) Order Specific Question: Release to patient Answer: Immediate ??? MICROALB/CREAT RATIO URINE RANDOM PANEL Order Specific Question: Release to patient Answer: Immediate ??? LIPID PROFILE (LIPID PANEL) Order Specific Question: Release to patient Answer: Immediate ??? PROSTATE SPECIFIC ANTIGEN SCREEN Order Specific Question: Release to patient Answer: Immediate ??? AMB REFERRAL TO SLEEP SPECIALIST Standing Status: Future Standing Expiration Date: 05/10/2023 Referral Type: Evaluate & Treat Referral Reason: Specialty Services Required Referred to Provider: Artie Durán MD Number of Visits Requested: 12 ??? AMB REFERRAL TO PODIATRY Standing Status: Future Standing Expiration Date: 05/10/2023 Referral Type: Evaluate & Treat Referral Reason: Specialty Services Required Referred to Provider: Rhea Thacker DPM Number of Visits Requested: 12 ??? AMB REFERRAL TO CARDIOLOGY Standing Status: Future Standing Expiration Date: 05/10/2023 Referral Type: Evaluate & Treat Referral Reason: Specialty Services Required Referred to Provider: Santiago Nicholson MD Number of Visits Requested: 12 ??? HEMOGLOBIN A1C - POINT OF CARE (AMB) Order Specific Question: Release to patient Answer: Immediate ??? amLODIPine (NORVASC) 10 MG tablet Sig: Take 1 (one) tablet by mouth at bedtime Dispense: 90 tablet Refill: 1 ??? atorvastatin (LIPITOR) 80 MG tablet Sig: Take 1 (one) tablet by mouth at bedtime Dispense: 90 tablet Refill: 1 ??? carvedilol (COREG) 25 MG tablet Sig: Take 1 (one) tablet by mouth 2 times daily with morning and evening meal Dispense: 90 tablet Refill: 1 ??? glipiZIDE CR 24hr (GLIPIZIDE XL) 5 MG tablet Sig: Take 1 (one) tablet by mouth once daily Dispense: 90 tablet Refill: 1 ??? losartan (COZAAR) 100 MG tablet Sig: Take 1 (one) tablet by mouth once daily Dispense: 90 tablet Refill: 1 ??? metFORMIN ER 24hr (GLUCOPHAGE XR) 500 MG tablet Sig: Take 2 (two) tablets by mouth 2 times daily Dispense: 180 tablet Refill: 1 Return to office in 1 month. Patient instructed to call with any concerns or problems. * Richa Quintanilla MA - 05/10/2022 10:22 AM CDT Reviewed overdue health maintenance topics with patient. Will provide covid vaccine dates documented in this encounter Plan of Treatment Upcoming Encounters Date Type Department Care Team (Late st Contact Info) Description 10/20/2024 8:00 AM CONTRACT PARALEGAL Office Visit [facility] - Family Medicine [address] [facility] [facility] [address] [place] [phone] Kiana Cole MD [address] [place] [address] 11/28/2024 9:00 AM CONTRACT PARALEGAL Office Visit [facility] - Neurology [address] [facility] [place] [address] Aline Finch MD [address] [facility] [place] [address] 02/10/2025 10:00 AM CDT Office Visit [facility] - Cardiology [address] [address] Curly Lay MD [address] [address] Scheduled Orders Name Type Priority Associated Diagnoses Orde r Schedule BNP [B-TYPE NATRIURETIC PEPTIDE] Lab Routine Localized edema Ordered: 05/10/2022 BASIC METABOLIC PANEL (BMP) Lab Routine Low serum potassium Essential hypertension Type 2 diabetes mellitus with other circulatory complication, without long-term current use of insulin (HCC) Ordered: 05/10/2022 MICROALB/CREAT RATIO URINE RANDOM PANEL Lab Routine Type 2 diabetes mellitus with other circulatory complication, without long-term current use of insulin (HCC) Ordered: 05/10/2022 LIPID PROFILE (LIPID PANEL) Lab Routine Hyperlipidemia, unspecified hyperlipidemia type Ordered: 05/10/2022 PROSTATE SPECIFIC ANTIGEN SCREEN Lab Routine Prostate cancer screening Ordered: 05/10/2022 documented as of this encounter Procedures Procedure Name Priority Date/Time Associated Diagnosis Comments HEMOGLOBIN A1C - POINT OF CARE (AMB) Routine 05/10/2022 11:23 AM CDT Type 2 diabetes mellitus with other circulatory complication, without long-term current use of insulin (HCC) documented in this encounter Results * HEMOGLOBIN A1C - POINT OF CARE (AMB) (05/10/2022 11:23 AM CDT) Hemoglobin A1c POCT 6.7 % [facility] Expiration Date 12/27/2022 [facility] Lot # [id number] [facility] QC Verified Yes Yes [facility] Blood BLOOD SPECIMEN / Unknown 05/10/2022 11:23 AM CDT Sylvain Daniels MD LAB - POINT OF CAR E ORDERABLES [facility] [address] [phone] documented in this encounter Visit Diagnoses Diagnosis Physical exam, routine- Primary Routine general medical examination at a health care facility Encounter to establish care with new doctor Essential hypertension S/P CABG x 3 Postsurgical aortocoronary bypass status Low serum potassium Type 2 diabetes mellitus with other circulatory complication, without long-term current use of insulin (HCC) Hyperlipidemia, unspecified hyperlipidemia type Morbid obesity with BMI of 40.0-44.9, adult (HCC) MONTY on CPAP Obstructive sleep apnea (adult) (pediatric) Tobacco use Tobacco use disorder Localized edema Edema Neuropathy Mononeuritis of unspecified site Tinea pedis of both feet Onychomycosis Dermatophytosis of nail Prostate cancer screening Special screening for malignant neoplasm of prostate Need for mvtyapfsdp-mixqnwd-qdiuaksvy (Tdap) vaccine Need for prophylactic vaccination with combined haextidrzn-msdxgvm-txijbxqef (DTP) vaccine Need for vaccination for Strep pneumoniae Need for prophylactic vaccination against streptococcus pneumoniae (pneumococcus) documented in this encounter Care Teams Bargain Table Clerk Relationship Specialty Start Date End Date Sylvain Daniels MD PCP - General Family Medicine 05/10/22 02/14/24 documented as of this encounter
--- OUTSIDE RECORDS SUMMARY | 2024-10-11 19:45 | XMS_ITS | Encounter Summary ---
Author Organization [facility] Address [address] [place] [address] Care Team Providers Care Veterinary Medicine Doctor Name Role Phone Sylvain Daniels MD Primary Care Provider [phone]- [phone] Sylvain Daniels MD Unavailable [phone] Reason for Visit * Reason Onset Date Comments Transitional Care 07/31/2022 Encounter Details Date Type Department Care Team (Late st Contact Info) Description 07/31/2022 Transitional Care [facility] Medical [facility] - Family Medicine [address] [place] [phone] Sylvain Daniels MD [address] [place] [address] Transitional Care Social History Tobacco Use Types Packs/Day [...] encounter Miscellaneous Notes * Telephone Encounter - Sylvain Daniels MD - 08/01/2022 1:04 PM CDT PROVIDER ASSESSMENT OF PATIENT CONTACT WITHIN 2 BUSINESS DAYS OF DISCHARGE Are the discharge records available and reviewed? Yes Are there pending tests that need reviewed? No Is there need to discuss patient with other health care providers? No Is there need for additional referrals, either for other providers or community resources? No * Telephone Encounter - Emelia Garcia RN - 08/01/2022 9:41 AM CDT Discharge Follow Up Phone Call Physician to enter dotphrase TCMPROVIDER Discharged from hospital for [facility] hospital?: [facility] Date of Discharge: 07.26.22-07.28.22 Diagnosis: COPD exacerbation and bronchitis Discharged to: Home Health Status Diagnosis 1 What did your medical team tell you when you were discharged from the hospital? Take all medications as prescribed. Follow up with primary provider within 7 days. Follow up with Joshua Spann MD (Pulmonary Disease); Call to make appointment with lung doctor to do spirometry. You may return to work 7 days from 07.28.22. Pt to go to ER for SOB, chest pain/pressure, temp greater than 103.0, confusion, lethargic, distress etc. Since you left the hospital, do you feel your main problem (diagnosis) has improved, gotten worse, or not changed? stable Since you left the hospital, have any new medical concerns come up? No Medication Reconciliation Have you been able to fill and pickle cutter all prescription medications since your discharge? Yes What medications are you taking now and how do you take them? (Perform Med Reconciliation in [facility]).medications reconciled and allergies reviewed with pt. pt stated is picking up the rest of medications from [facility] today. Do you have any questions about your medications? pt educated on medication regimen with voiced understanding. pt voiced no concerns at this time. Clarification of Physician Appointments and Lab Tests What testing or appointments were you told to complete when you were discharged from the hospital? PCP: Hazel MIXON/Dr Daniels - 08.03.22 Specialist: Joshua Spann MD (Pulmonary Disease) - TBA Ancillary: n/a Does the patient need help with transportation for follow up appointments? no Does the patient need assistance coordinating appointments? no Coordination of Home Services / Social History Was Home Health ordered? No If yes, When was your Home Health Care visit? n/a Do you have someone who assists you at home? no How often do they help? no Is there a need for any additional educational topics for the patient and/or caregivers concerning community resources, self-management of their medical condition, or activities of daily living? no What to do if a problem arises Tell me what symptoms would make you call your doctor? Med issues, falls, worsening SOB, questions or concerns. Pt to go to ER for SOB, chest pain/pressure, temp greater than 103.0, confusion, lethargic, distress etc. Pt symptom education required? Yes Do you have any questions for me? pt educated on symptom management and disease process along with SOB management with voiced understanding. Pt voiced no concerns at this time. * Telephone Encounter - Emelia Garcia RN - 07/31/2022 7:57 AM CDT left vm for pt to call office to schedule hosp f/u appt - if pt calls back - please transfer to RN - thank you! documented in this encounter Plan of Treatment Upcoming Encounters Date Type Department Care Team (Late st Contact Info) Description 10/20/2024 8:00 AM IN HOUSE COUNSEL Office Visit [facility] - Family Medicine [address] [phone] Kiana Cole MD [address] [place] [address] 11/28/2024 9:00 AM IN HOUSE COUNSEL Office Visit [facility] - Neurology [address] [facility] [place] [phone] Aline Finch MD [address] [facility] [place] [address] 02/10/2025 10:00 AM CDT Office Visit [facility] - Cardiology [address] [facility], [facility] [address] [place] [address] Curly Lay MD [address] [facility] [address] [place] [address] documented as of this encounter Visit Diagnoses Not on filedocumented in this encounter Care Teams Veterinary Medicine Doctor Relationship Specialty Start Date End Date Sylvain Daniels MD PCP - General Family Medicine 05/10/22 02/14/24 Sylvain Daniels MD [address] [place] [address] PCP - Attributed-[facility] Commercial 05/15/22 10/01/22 documented as of this encounter
--- OUTSIDE RECORDS SUMMARY | 2024-10-11 19:45 | XMS_ITS | Encounter Summary ---
Author Organization [facility] Address [address] [facility] [place] [address] Care Team Providers Care Object Oriented Programmer Name Role Phone Lisy Olmedo MD Primary Care Provide r Reason for Visit * Reason Onset Date Comments Results 12/26/2019 Encounter Details Date Type Department Care Team (Late st Contact Info) Description 12/26/2019 Telephone [facility] [address] [facility] [address] [place] [address] Nivia Peñaloza, TILE CONDUIT LAYER-CHEESE SUPERVISOR [address] [phone] Results Social History Tobacco Use Types Packs/Day Years [...] encounter Miscellaneous Notes * Telephone Encounter - Nivia Peñaloza APRN-CNP - 12/26/2019 8:05 PM CDT Called to notify of CXR results. No HIPPA compliant VM generic message left. documented in this encounter Plan of Treatment Upcoming Encounters Date Type Department Care Team (Late st Contact Info) Description 10/20/2024 8:00 AM MARINE DESIGN ENGINEER Office Visit [facility] - Family Medicine [address] [facility] [address] [place] [phone] Kiana Cole MD [address] [place] [address] 11/28/2024 9:00 AM MARINE DESIGN ENGINEER Office Visit [facility] - Neurology [address] [facility] [place] [place] [place] [address] Aline Finch MD [address] [facility] [place] [address] 02/10/2025 10:00 AM CDT Office Visit [facility] - Cardiology [address] [facility], [facility] [address] [place] [address] Curly Lay MD [address] [facility] [address] [place] [address] documented as of this encounter Visit Diagnoses Not on filedocumented in this encounter Care Teams Object Oriented Programmer Relationship Specialty Start Date End Date Lisy Olmedo MD PCP - General 04/20/09 05/09/22 documented as of this encounter
--- OUTSIDE RECORDS SUMMARY | 2024-10-11 19:45 | XMS_ITS | Encounter Summary ---
Author Organization [facility] Address [address] [facility] [address] [place] [address] Care Team Providers Care Legislative Director Name Role Phone Lisy Olmedo MD Primary Care Provide r Encounter Details Date Type Department Care Team (Latest Contact Info) Description 08/05/2020 Travel Social History Tobacco Use Types Packs/Day [...] have Coronavirus / COVID-19? Unable to assess 08/05/2020 11:57 AM CD T documented as of this encounter Functional [...] st Contact Info) Description 10/20/2024 8:00 AM HOSPITAL LIBRARIAN Office Visit [facility] - Family Medicine [address] [place] [address] Kiana Cole MD [address] [place] [address] 11/28/2024 9:00 AM HOSPITAL LIBRARIAN Office Visit [facility] - Neurology [address] [facility], [place] [address] Aline Finch MD [address] [facility] [place] [place] [place] [address] 02/10/2025 10:00 AM CDT Office Visit [facility] - Cardiology [address] [facility], [facility] [address] [place] [address] Curly Lay MD [address] [facility] [address] [place] [address] documented as of this encounter Visit Diagnoses Not on filedocumented in this encounter Care Teams Legislative Director Relationship Specialty Start Date End Date Lisy Olmedo MD PCP - General 04/20/09 05/09/22 documented as of this encounter
--- OUTSIDE RECORDS SUMMARY | 2024-10-11 19:45 | XMS_ITS | Encounter Summary ---
Author Organization [facility] [employer] Address [address] [facility] [place] [address] Care Team Providers Care Customer Relations Assistant Name Role Phone Lisy Olmedo MD Primary Care Provide r Reason for Visit * Auth/Cert Specialty Diagnoses / Procedures Referred By Contmegan t Referred To Contact Diagnoses Colon cancer screening Colon cancer screening [Z12.11] Procedures NM COLONOSCOPY,DIAGNOSTIC NM COLONOSCOPY,BIOPSY COLONOSCOPY SCREEN Referral ID Status Reason Start Date Expiration Date Visits Re quested Visits Authorized [id number] 1 1 Encounter Details Date Type Department Care Team (Late st Contact Info) Description 11/12/2020 10:30 AM HEALTH SERVICES MANAGER - 11/12/2020 11:00 AM [facility] Surgery [facility] ENDOSCOPY [address] [place] [phone] Jodi Vernon MD [address] [facility] 3L [place] [address] COLONOSCOPY SCREEN Surgery Details Date/Time Status Location OR Service Patient Class Case Class Case Type Trauma Case? 11/12/2020 10:30 AM Posted [facility] Endoscopy ENDO 2 Gastroenterology Surgery Day Care Panel 1 Procedure LRB Anes Op Region Wound Class Comments COLONOSCOPY SCREEN N/A MAC NA normal colon Surgeon Surgeon Role Service Panel Jodi Vernon MD Primary Gastroenterology 1 [facility] Lukas Cabrera MD Fellow Gastr oenterology 1 documented in this encounter Social History [...] CS T documented as of this encounter Last Filed Vital Signs Vital Sign Reading Time Taken Comments Blood Pressure 175/109 11/12/2020 10:45 AM HEALTH SERVICES MANAGER Pulse 69 11/12/2020 10:45 AM HEALTH SERVICES MANAGER Temperature 36.4 ??C (97.6 ??F) 11/12/2020 9:47 AM CS T Respiratory Rate 21 11/12/2020 10:4 5 AM HEALTH SERVICES MANAGER Oxygen Saturation 96% 11/12/2020 10: 45 AM HEALTH SERVICES MANAGER Inhaled Oxygen Concentration - - Weight 160.4 kg (353 lb 9.6 oz) 11/12/2020 9:47 AM HEALTH SERVICES MANAGER Height 193 cm (6' 4 ) 11/12/2020 9:47 AM HEALTH SERVICES MANAGER Body Mass Index 43.04 11/12/2020 9:47 AM HEALTH SERVICES MANAGER documented in this encounter Functional Status Functional [...] 01/30/2018 documented as of this encounter Discharge Instructions * Discharge Instructions* Keysha Cuenca, ZACHARY - 11/12/2020 12:57 PM HEALTH SERVICES MANAGER Images from the original note were not included. Patient Education Colonoscopy WHAT YOU NEED TO KNOW: A colonoscopy is a procedure to examine the inside of your colon (intestine) with a scope. Polyps or tissue growths may have been removed during your colonoscopy. It is normal to feel bloated and to have some abdominal discomfort. You should be passing gas. If you have hemorrhoids or you had polypsremoved, you may have a small amount of bleeding. DISCHARGE INSTRUCTIONS: Call your doctor if: ?? You have a large amount of bright red blood in your bowel movements. ?? Your abdomen is hard and firm and you have severe pain. ?? You have sudden trouble breathing. ?? You develop a rash or hives. ?? You have a fever within 24 hours of your procedure. ?? You have not had a bowel movement for 3 days after your procedure. ?? You have questions or concerns about your condition or care. After your colonoscopy: ?? Do not lift, strain, or run for 3 days. ?? Rest as much as possible. You have been given medicine to relax you. Do not drive or make important decisions for at least 24 hours. Return to your normal activity as directed. ?? Relieve gas and discomfort from bloating by lying on your left side with a heating pad on your abdomen. You may need to take short walks to help the gas move out. Eat small meals until bloating isrelieved. If you had polyps removed: For 7 days after your procedure: ?? Do not take aspirin. ?? Do not go on long car rides. Help prevent constipation: ?? Eat a variety of healthy foods. Healthy foods include fruit, vegetables, whole-grain breads, low-fat dairy products, beans, lean meat, and fish. Ask if you need to be on a special diet. Your healthcare provider may recommend that you eat high-fiber foods such as cooked beans. Fiber helps you have regular bowel movements. ?? Drink liquids as directed. Adults should drink between 9 and 13 eight-ounce cups of liquid everyday. Ask what amount is best for you. For most people, good liquids to drink are water, juice, and milk. ?? Exercise as directed. Talk to your healthcare provider about the best exercise plan for you. Exercise can help prevent constipation, decrease your blood pressure and improve your health. Follow up with your healthcare provider as directed: Write down your questions so you remember to ask them during your visits. ?? Copyright [employer] 2019 Information is for End User's use only and may not be sold, redistributed or otherwise used for commercial purposes. All illustrations and images included in CareNotes?? are the copyrighted property of [employer] or [employer] The above information is an hearing aid specialist only. It is not intended as medical advice for individual conditions or treatments. Talk to your doctor, nurse or pharmacist before following any medical regimen to see if it is safe and effective for you. TH SERVICES MANAGER documented in this encounter Medications at Time of Discharge Medication Sig Dispensed Refills Start Date End Date albuterol HFA (PROVENTIL;VENTOLIN;PRO AIR) 108 (90 Base) MCG/ACT inhalerIndications:Mild intermittent asthma with acute exacerbation (HCC) Inhale 2 puffs by mouth every 4 hours as needed for Wheezing 1 Inhaler 5 11/17/2019 12/27/2020 amLODIPine (NORVASC) 10 MG tabletIndications:Essen tial hypertension Take 1 tablet by mouth at bedtime 30 tablet 5 11/17/2019 12/27/2020 Aspirin 81 MG Take 1 (one) tablet by mouth once daily 01/23/2024 atorvastatin (LIPITOR) 80 MG tabletIndications:Essen tial hypertension,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 (HCC),Type 2 diabetes mellitus with other circulatory complication, without long-term current use of insulin ([facility]) Take 1 tablet by mouth at bedtime 30 tablet 5 11/17/2019 12/27/2020 Blood Glucose Monitoring Suppl (ONE TOUCH ULTRA MINI) W/DEVICE KIT Check blood sugars twice daily 1 kit 03/19/2018 02/15/2024 blood glucose test strip Use 1 strip 2 times daily 100 strip 11 03/19/2018 02/15/2024 carvedilol (COREG) 25 MG tabletIndications:Coron susan artery disease involving tonkawa coronary artery of tonkawa heart with angina pectoris (HCC) Take 1 tablet by mouth 2 times daily with morning and evening meal 60 tablet 5 09/21/2020 05/10/2022 furosemide (LASIX) 40 MG tabletIndications:Essen tial hypertension Take 1 tablet by mouth once daily 30 tablet 5 11/17/2019 12/27/2020 glipiZIDE CR 24hr (GLIPIZIDE XL) 5 MG tabletIndications:Contr olled type 2 diabetes mellitus without complication, without long-term current use of insulin (HCC),Type 2 diabetes mellitus with other circulatory complication, without long-term current use of insulin (HCC) Take 1 tablet by mouth once daily 30 tablet 5 09/21/2020 05/13/2021 losartan (COZAAR) 100 MG tabletIndications:Essen tial hypertension Take 1 tablet by mouth once daily 30 tablet 5 09/21/2020 05/13/2021 metFORMIN ER 24hr (GLUCOPHAGE XR) 500 MG tabletIndications:Type 2 diabetes mellitus with other circulatory complication, without long-term current use of insulin (HCC) Take 4 tablets by mouth daily with dinner 120 tablet 5 11/17/2019 12/27/2020 nitroGLYCERIN (NITROSTAT) 0.4 MG tablet Dissolve 1 tablet under the tongue every 5 minutes as needed for Angina 20 tablet 1 09/18/2018 01/23/2024 One Touch Delica Lancets Use 2 times daily Check blood sugars twice daily. 100 Each 11 03/19/2018 02/15/2024 polyethylene glycol (GOLYTELY) 236 g solution Drink 1/2 of prep at 6pm the night before test. Finish the prep 6 hours before test. 4000 mL 11/03/2020 07/27/2022 sildenafil (REVATIO) 20 MG tabletIndications:Erect ile dysfunction, unspecified erectile dysfunction type Take 2-5 tablets by mouth 5 times daily as needed 30 tablet 5 11/17/2019 02/24/2021 documented as of this encounter Progress Notes * Keysha Cuenca RN - 11/12/2020 2:23 PM CST DuoNeb complete, wheezing and shortness of breath resolved. Blood pressure elevated, but down from previous. Per Dr. Lawson, patient meets discharge criteria. Alert and oriented x4. Patient tolerated fluids well. Iv removed. Discharge instructions reviewed and patient verbalized understanding. Patient dischaged to home. TH SERVICES MANAGER * Keysha Cuenca RN - 11/12/2020 1:43 PM CST Patient complains of shortness of breath after endoscopy procedure. VS stable (blood pressure elevated but down from previous readings). Bilateral wheezes heard upon auscultation. Patient has historyof asthma. Dr. Lawson notified. Per verbal order from Dr. Lawson Duoneb administered. Will assessafter treatment. TH SERVICES MANAGER * Nathalie Rivas RN - 11/12/2020 12:15 PM CST Patients BP elevated. MD Lawson notified. Instructed patient to take his home dose of amlodipine. After 1 hour patients bp continues to be elevated 181/108. MD Lawson notified. Awaiting orders TH SERVICES MANAGER documented in this encounter H&P Notes * Jodi Vernon MD - 11/12/2020 10:10 AM CST ENDOSCOPY PRE-PROCEDURE MEDICAL HISTORY & PHYSICAL NOTE 11/12/2020 Yaya Vazquez 60 year old male Temp 97.6 ??F (36.4 ??C) (Oral) Ht 1.93 m (6' 4 ) Wt 160.4 kg (353 lb 9.6 oz) BMI 43.04 kg/m2 History: CRC screening, priorcolon 10 years ago normal No fam hx Asymptomatic Aspirin this morning Past Medical History: Diagnosis Date ??? Anemia 01/2018 ??? Asthma ??? Chest congestion 08/05/2020 ??? Confusional arousals 08/05/2020 ??? Controlled type 2 diabetes mellitus without complication, without long-term current use of insulin 09/28/2011 ??? 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 Cough [...] Past Surgical History: Procedure Laterality Date ??? Coronary Artery Bypass Graft N/A 01/24/2018 N/A; Coronary artery bypass graft x 3 ??? Tonsillectomy Allergies Allergen Reactions ??? Lisinopril Angioedema ??? Pcn [Penicillins] Swelling eyes swelled shut 50 years ago ??? Penicillin V Rash Medications Prior to Admission Medication Sig Dispense Refill ??? albuterol HFA [...] ??? Blood Glucose Monitoring Suppl (ONE TOUCH Adeptence MINI) W/DEVICE KIT Check blood sugars twice [...] by mouth 5 times daily as needed (Patient not taking: Reported on 11/12/2020) 30 tablet 5 No current facility-administered medications for this encounter. Physical Exam: General appearance: alert, cooperative, no distress Heart: regular rhythm, normal S1 and S2, without murmurs, rubs or gallops Lungs: breath sounds normal and symmetric; no rales or wheezes, distant lung sounds Abdomen: soft without mass, non-tender, with normal bowel sounds Extremities: mild edemalower extremitiies bilaterally Sedation Plan: Anesthesia administered per Anesthesia Department Indication(s) for Procedure: Colon Screen - average risk Procedure Planned: Colonoscopy Jodi Vernon MD TH SERVICES MANAGER documented in this encounter Plan of Treatment Upcoming Encounters Date Type Department Care Team (Late st Contact Info) Description 10/20/2024 8:00 AM HEALTH SERVICES MANAGER Office Visit [facility] Medical Group - Family Medicine [address] [facility], [address] [phone] Kiana Cole MD [address] [place], [place] [phone] 11/28/2024 9:00 AM HEALTH SERVICES MANAGER Office Visit [facility] - Neurology [address] [facility], [place] [address] Aline Finch MD [address] [facility] [place] [address] 02/10/2025 10:00 AM CDT Office Visit [facility] - Cardiology [address] [facility], [address] [address] Curly Lay MD [address] [address] documented as of this encounter Procedures Procedure Name Priority Date/Time Associated Diagnosis Comments COLONOSCOPY SCREEN 11/12/2020 12 :33 PM HEALTH SERVICES MANAGER Colon cancer screening ENDOSCOPY, COLON, SCREENING Routine 11/12/2020 12:12 PM HEALTH SERVICES MANAGER GLUCOSE - POINT OF CARE Routine 11/12/2020 10:17 AM HEALTH SERVICES MANAGER documented in this encounter Results * ENDOSCOPY, COLON, SCREENING (11/12/2020 12:12 PM HEALTH SERVICES MANAGER) Report Endoscopy POC Endoscopy Department Report _ Patient Name: Yaya Vazquez ??Procedure Date: 11/12/2020 12:12 PM ? [...] colon ?K64.8, Other hemorrhoids CPT copyright 2019 [employer]. All rights reserved. The codes documented in this report are preliminary and upon nylon operator review may be revised to meet current compliance requirements. Jodi Vernon MD 11/12/2020 12:57:40 PM Note Initiated On: 11/12/2020 12:12 PM Number of Addenda: 0 ? [facility] ? [address] [place] [address] [facility] 11/12/2020 12:1 2 PM HEALTH SERVICES MANAGER Jodi Vernon MD GI PROCEDURE ORDER GISSEL Performing Organization Address City/[facility]/ZIP Co de Phone Number [facility] * GLUCOSE - POINT OF CARE (11/12/2020 10:17 AM HEALTH SERVICES MANAGER) Glucose WB/POC 100 70 - 115 mg/dL 11/12/2020 10:44 AM HEALTH SERVICES MANAGER [facility] Specimen Type Venous 11/12/2020 10:44 AM HEALTH SERVICES MANAGER [facility] Blood BLOOD SPECIMEN / Unknown 11/12/2020 10:17 AM HEALTH SERVICES MANAGER 11/12/2020 10:44 AM HEALTH SERVICES MANAGER Jodi Vernon MD LAB - POINT OF CAR E ORDERABLES Performing Organization Address [facility] Co de Phone Number [facility] [address] [place] [address], [facility] [phone] documented in this encounter Visit Diagnoses Diagnosis Uncomplicated asthma, unspecified asthma severity, unspecified whether persistent (HCC)- Primary Colon cancer screening Special screening for malignant neoplasms, colon documented in this encounter Administered Medications Inactive Administered Medications - up to 3 most recent administrations Medication Order MAR Action Action Date Dose Rate Site 0.9% NaCl injection 3 mL 3 mL, Intracatheter, PRE-PROCEDURE MULTIPLE, Starting on Sun11/12/20 at 1013, Until Sun11/12/20 at 1523, For Saline Lock flushes if one is inserted for Bronchoscopy/Endoscopy procedure., Pre-procedure (GI) albuterol-ipratropium (DUO-NEB) nebulizer solution 3 mL 3 mL, Inhalation, ONCE, 1 dose, On Sun11/12/20 at 1400, Post-op $ Given 11/12/2020 1:39 PM HEALTH SERVICES MANAGER 3 mL documented in this encounter Active and Recently Administered Medications Times are shown in HEALTH SERVICES MANAGER. Scheduled Medication Order 11/10/2020 11/11/2020 11/12/2020 0.9% NaCl injection 3 mL 3 mL, Intracatheter, PRE-PROCEDURE MULTIPLE, Starting on Sun11/12/20 at 1013, Until Sun11/12/20 at 1523, For Saline Lock flushes if one is inserted for Bronchoscopy/Endoscopy procedure., Pre-procedure (GI) albuterol-ipratropium (DUO-NEB) nebulizer solution 3 mL (COMPLETED) 3 mL, Inhalation, ONCE, 1 dose, On Sun11/12/20 at 1400, Post-op 1339 ($ Given - Prov ider: Keysha Cuenca RN) documented in this encounter Care Teams Customer Relations Assistant Relationship Specialty Start Date End Date Lisy Olmedo MD PCP - General 04/20/09 05/09/22 documented as of this encounter
--- OUTSIDE RECORDS SUMMARY | 2024-10-11 19:45 | XMS_ITS | Encounter Summary ---
Author Organization [facility] Health Address [address] [facility] [address] Care Team Providers Care Toll Gate Keeper Name Role Phone Lisy Olmedo MD Primary Care Provide r Encounter Details Date Type Department Care Team (Late st Contact Info) Description 01/20/2019 Orders Only [facility] Family and Community Medicine [address] [address] Lisy Olmedo MD [facility] [place] [address] Social History Tobacco Use Types [...] st Contact Info) Description 10/20/2024 8:00 AM CARPET LAYER Office Visit [facility] - Family Medicine [address] [facility], [facility] [address] [place] [phone] Kiana Cole MD [address] [place], [place] [phone] 11/28/2024 9:00 AM CARPET LAYER Office Visit [facility] - Neurology [address] [facility], [place] [phone] Aline Finch MD [address] [facility] [place] [address] 02/10/2025 10:00 AM CDT Office Visit [facility] - Cardiology [address] [address] Curly Lay MD [address] [address] documented as of this encounter Procedures Procedure Name Priority Date/Time Associated Diagnosis Comments MICROALB/CREAT RATIO URINE RANDOM PANEL 01/20/2019 11:34 AM CDT LIPID PROFILE 01/20/2019 11:34 AM CDT documented in this encounter Results * (ABNORMAL) MICROALB/CREAT RATIO URINE RANDOM PANEL (01/20/2019 11:34 AM CDT) Creatinine Urine 172 20 - 320 mg/dL [facility] Microalbumin Urine 9.9 mg/dL [facility] Comment: Reference Range Not established Microalbumin/Creat inine Ratio 58(H) <30 mcg/mg creat [facility] Comment: The ADA defines abnormalities in albumin excretion as follows: Category ? Result (mcg/mg creatinine) Normal ?<30 Microalbuminuria ? 30-299 Clinical albuminuria ?? > OR = 300 The ADA recommends that at least two of three specimens collected within a 3-6 month period be abnormal before considering a patient to be within a diagnostic category. REPORT COMMENT: FASTING:YES Test Performed at: [facility] [address] [place], [place] ??[phone] EH PURVIS DO,MPH 01/20/2019 11:3 4 AM CDT 01/20/2019 11:34 AM CDT Lisy Olmedo MD LAB - URINE C HEMISTRY ORDERABLES Performing Organization Address City/State/[facility] Co de Phone Number [facility] [address] [place] [address] * (ABNORMAL) LIPID PROFILE (01/20/2019 11:34 AM CDT) Cholesterol 258(H) <200 mg/dL [facility] HDL Cholesterol 63 >40 mg/dL [facility] Triglycerides 63 <150 mg/dL [facility] LDL Calculated 179(H) mg/dL (calc) [facility] Comment: Reference range: <100 Desirable range <100 mg/dL for primary prevention; ?? <70 mg/dL for patients with CHD or diabetic patients with > or = 2 CHD risk factors. LDL-C is now calculated using the Mika-Dania calculation, which is a validated novel method providing better accuracy than the Friedewald equation in the estimation of LDL-C. Mika SS et al. RAFFI. 2013;310(19): 9336-0205 (http://education.Transporeon.Burbio.com/faq/RRH276) CHOL/HDLC RATIO 4.1 <5.0 (calc) [facility] Non HDL Cholesterol 195(H) <130 mg/dL (calc) [facility] Comment: For patients with diabetes plus 1 major ASCVD risk factor, treating to a non-HDL-C goal of <100 mg/dL (LDL-C of <70 mg/dL) is considered a therapeutic option. Test Performed at: [facility] [employer] [address] [place] ??[phone] EH PURVIS DO,MPH 01/20/2019 11:3 4 AM CDT 01/20/2019 11:34 AM CDT Lisy Olmedo MD LAB - THIRD OFFICER RY ORDERABLES [employer] [address] [place] [address] documented in this encounter Visit Diagnoses Not on filedocumented in this encounter Care Teams Toll Gate Keeper Relationship Specialty Start Date End Date Lisy Olmedo MD PCP - General 04/20/09 05/09/22 documented as of this encounter
--- OUTSIDE RECORDS SUMMARY | 2024-10-11 19:45 | XMS_ITS | Encounter Summary ---
Author Organization [facility] Address [address] [facility] [place] [address] Care Team Providers Care Wheel Adjuster Name Role Phone Lisy Olmedo MD Primary Care Provide r Sylvain Daniels MD Primary Care Provider + [phone] None, Physician Primary Care Provider Unavailabl e Sylvain Daniels MD Unavailable [phone] Sylvain Daniels MD Unavailable [phone] Sylvain Daniels MD Unavailable [phone] Sylvain Daniels MD Primary Care Provider + [phone] Kiana Cole MD Primary Care Provider Sean Kyle MD Primary Care Provider [phone] Kiana Cole MD Primary Care Provider Reason for Visit * Reason Onset Date Comments MEDICATION REFILL 11/19/2021 Encounter Details Date Type Department Care Team (Late st Contact Info) Description 11/19/2021 Refill [facility] Medicine [address] [facility] [address] [place] [address] Lisy Olmedo MD [address] [place] [address] MEDICATION REFILL Social History Tobacco Use Types [...] person have serious difficulty walking/climbing stairs? Yes-post [facility]; needs rehab to build activity level. 01/30/2018 Does person have difficulty dressing/bathing? Yes-post CABG; needs some assist 01/30/2018 Does person have difficulty doing errands alone? Yes 01/30/2018 Cognitive Status Response Date of Assessm ent Does person have difficulty concentrating/remembering/making decisions? No 01/30/2018 documented as of this encounter Miscellaneous Notes * Telephone Encounter - Rosalva Johnson - 11/21/2021 10:30 AM CST Requested Prescriptions Pending Prescriptions Disp Refills ??? sildenafil (REVATIO) 20 MG tablet 30 tablet Sig: Take 2 (two) tablets to 5 (five) tablets by mouth once daily as needed YULISSA: 02/24/21 NOV Due: 06/27/21 NOV Scheduled: not scheduled LFR: 02/24/21 Qty Disp: 30 # of Refills: 5 Allergies Allergen Reactions ??? Lisinopril Angioedema ??? Pcn [Penicillins] Swelling eyes swelled shut 50 years ago ??? Penicillin V Rash CTOR OF CORPORATE COMMUNICATIONS documented in this encounter Plan of Treatment Upcoming Encounters Date Type Department Care Team (Late st Contact Info) Description 10/20/2024 8:00 AM DIRECTOR OF CORPORATE COMMUNICATIONS Office Visit [facility] - Family Medicine [address] [facility], [facility] [address] [place] [phone] Kiana Cole MD [address] [place] [address] 11/28/2024 9:00 AM DIRECTOR OF CORPORATE COMMUNICATIONS Office Visit [facility] Physician Group - Neurology [address] [facility], [place] [phone] Aline Finch MD [address] [facility] [place] [address] 02/10/2025 10:00 AM CDT Office Visit [facility] Physician Group - Cardiology [address] [facility], [place] [phone] [place] [phone] Curly Lay MD [address] [address] documented as of this encounter Visit Diagnoses Diagnosis Erectile dysfunction, unspecified erectile dysfunction type documented in this encounter Additional Health Concerns Infection Onset Date Last Indicated Resolved Time COVID-19 Under Investigation 07/26/2022 07/26/2022 07/26/2022 5:54 PM CDT COVID-19 Under Investigation 04/10/2024 04/10/2024 04/10/2024 2:48 PM CDT documented as of this encounter Care Teams Wheel Adjuster Relationship Specialty Start Date End Date Lisy Olmedo MD PCP - General 04/20/09 05/09/22 Sylvain Daniels MD PCP - General Family Medicine 05/10/22 02/14/24 None, Physician [address] [place] [address] PCP - General 02/15/24 05/16/24 Sylvain Daniels MD [address] [place] [address] PCP - Attributed-[employer] 05/15/22 10/01/22 Sylvain Daniels MD [address] [place] [address] PCP - Attributed-[employer] ST 02/12/23 04/01/23 Sylvain Daniels MD [address] [place] [address] PCP - General Family Medicine 05/17/24 05/19/24 Kiana Cole MD [address] [place] [address] PCP - General Internal Medicine 05/22/24 08/04/24 Sean Kyle MD [address] [place] [phone] PCP - General Internal Medicine 08/05/24 09/15/24 Kiana Cole MD [address] [place] [address] PCP - General Internal Medicine 09/16/24 Sylvain Daniels MD Family Medicine 02/15/24 documented as of this encounter
--- OUTSIDE RECORDS SUMMARY | 2024-10-11 19:45 | XMS_ITS | Encounter Summary ---
Author Organization [facility] Health Address [address] [place] [address] Care Team Providers Care Merchandiser Seasonal Name Role Phone Lisy Olmedo MD Primary Care Provide r Reason for Visit * Reason Comments Hypertension Diabetes Mellitus Encounter Details Date Type Department Care Team (Late st Contact Info) Description 11/05/2018 10:50 AM HAND II CUTTER Office Visit [facility] Medicine [address] [address] Lisy Olmedo MD [address] [place] [address] Essential hypertension (Primary Dx); Controlled type 2 diabetes mellitus without complication, without long-term current use of insulin (HCC); S/P CABG x 3; Mild intermittent asthma with acute exacerbation (HCC) Social History Tobacco Use Types Packs/Day Years Used Date Smoking Tobacco: Some Days Cigars Smokeless Tobacco: Never Tobacco Cessation:Ready to Q uit: No Comments:3-4 times / month Alcohol Use Standard Drinks/Week Comments Yes 7 (1 standard drink = 0.6 oz pur e alcohol) Sex and Gender Information Value Date Recorded Sex Assigned at Not on file Gender Identity Not on file Sexual Orientation Not on file documented as of this encounter Last Filed Vital Signs Vital Sign Reading Time Taken Comments Blood Pressure 182/108 11/05/2018 11:06 AM HAND II CUTTER Pulse 84 11/05/2018 11:06 AM HAND II CUTTER Temperature 36.6 ??C (97.9 ??F) 11/05/2018 1 1:06 AM HAND II CUTTER Respiratory Rate - - Oxygen Saturation 98% 11/05/2018 11: 06 AM HAND II CUTTER Inhaled Oxygen Concentration - - Weight 142.7 kg (314 lb 9.6 oz) 019 11:06 AM HAND II CUTTER Height 193 cm (6' 4 ) 11/05/2018 11:06 AM HAND II CUTTER Body Mass Index 38.29 11/05/2018 11:06 AM HAND II CUTTER documented in this encounter Functional Status Functional [...] as of this encounter Progress Notes * Lisy Olmedo MD - 11/05/2018 11:42 AM CST Patient here today for f/u Records reviewed; see below He has not been seen since his CABG in January Was doing fine post-op until 09/01; had CP, went to hospital; stress was ok except for EF down to 50% A1c at that time 6.6 Has been smoking cigars occ Pt here today for HTN f/u Diet:poor; fair amt of processed foods Exercise:none Chest pain: last CP was in Nov; does report that when trying to stretch chest feels tight SOB:none Ext:no swelling BP readings: high for the past few months; has been out of amlodipine for 2 weeks; at last hospitalstay amlodipine was changed to 5 mg; previously had been on 10 mg Hx of DM Credit Relationship Manager:no recent visit BS readings: n/a Checks sugars: not checking regularly Shoes in home: yes Exercise:none Eye exam: recent Pt also reports that he has a remote hx of asthma Since surgery, he occ feels wheezy Denies sob Pt also reports that he has been under a lot of stress He and his are now ; apparently she was not there for him at all after his surgery Has been mildly depressed; seeing a therapist Outpatient Medications Prior to Visit Medication Sig Dispense Refill ??? amLODIPine (NORVASC) 5 MG tablet Take 1 tablet by mouth once daily 30 tablet 0 ??? Aspirin 81 MG Take 81 mg by mouth once daily ??? atorvastatin (LIPITOR) 80 MG tablet Take 1 tablet by mouth at bedtime 30 tablet 3 ??? Blood Glucose Monitoring Suppl (ONE TOUCH ULTRA MINI) W/DEVICE KIT Check blood sugars twice daily 1 kit 0 ??? blood glucose test strip Use 1 strip 2 times daily 100 strip 11 ??? furosemide (LASIX) 40 MG tablet Take 40 mg by mouth once daily ??? GLIPIZIDE XL 5 MG tablet TAKE 1 TABLET BY MOUTH ONCE DAILY 90 tablet 0 ??? losartan (COZAAR) 50 MG tablet Take 50 mg by mouth once daily ??? metFORMIN (GLUCOPHAGE) 1000 MG tablet Take 1 tablet by mouth 2 times daily with morning and evening meal 180 tablet 0 ??? metoprolol tartrate (LOPRESSOR) 50 MG tablet Take 1 tablet by mouth 2 times daily 60 tablet 6 ??? nitroGLYCERIN (NITROSTAT) 0.4 MG tablet Dissolve 1 tablet under the tongue every 5 minutes as needed for Angina 20 tablet 1 ??? One Touch Delica Lancets Use 2 times daily Check blood sugars twice daily. 100 Each 11 ??? sildenafil (REVATIO) 20 MG tablet Take 40-100 mg by mouth 5 times daily as needed No facility-administered medications prior to visit. Past medical history reviewed and updated. Review of Systems Constitutional: Negative for chills, fever and malaise/fatigue. Respiratory: Positive for wheezing. Negative for cough, sputum production and shortness of breath. Cardiovascular: Negative for chest pain, palpitations and leg swelling. Gastrointestinal: Negative for nausea and vomiting. Neurological: Negative for dizziness and headaches. Psychiatric/Behavioral: Positive for depression. Negative for suicidal ideas. Vitals: 11/05/18 1106 BP: (!) 182/108 Pulse: 84 Temp: 97.9 ??F (36.6 ??C) SpO2: 98% Weight: (!) 314 lb 9.6 oz (142.7 kg) Height: 6' 4 (1.93 m) General appearance: alert, cooperative, no distress Eyes: sclera and conjunctiva clear, EOMI and PERRLA, lids normal Neck: range of motion is intact, no masses, thyroid not enlarged, no adenopathy Nodes: no cervical, axillary or inguinal adenopathy Chest: no tenderness; keloid midline scar noted Lungs: breath sounds normal and symmetric; no rales or wheezes Heart: regular rhythm, normal S1 and S2, without murmurs, gallops or rubs Abdomen: soft without mass, non-tender, with normal bowel sounds MSK: no edema; non tender to palpation Diabetic Foot Exam left and right foot/feet examined with shoes and socks removed. Visual inspection was normal except for thickened toenails. Sensory exam with monofilament was within normal limits. Dorsal pedal and posterior tibial pulses were within normal limits. Yaya Cummins was seen today for hypertension and diabetes mellitus. Diagnoses and all orders for this visit: Essential hypertension - amLODIPine (NORVASC) 10 MG tablet; Take 1 tablet by mouth at bedtime - MICROALB/CREAT RATIO URINE RANDOM PANEL - LIPID PROFILE Controlled type 2 diabetes mellitus without complication, without long-term current use of insulin - PNEUMOCOCCAL PPSV23 VACCINE [address] IM S/P CABG x 3 Mild intermittent asthma with acute exacerbation - albuterol HFA (PROVENTIL;VENTOLIN;PROAIR) 108 (90 BASE) MCG/ACT inhaler; Inhale 2 puffs by mouth every 4 hours as needed for Wheezing Other orders - Cancel: amLODIPine (NORVASC) 5 MG tablet; Take 1 tablet by mouth once daily Pt to cont current meds except amlodipine increased to 10 mg PCV 23 #2 today Check BP twice per week Eat low salt diet Exercise for at least 150 minutes per week- gradually increase intensity Discussed compliance with meds, smoking cessation Cont therapy II CUTTER documented in this encounter Plan of Treatment Upcoming Encounters Date Type Department Care Team (Late st Contact Info) Description 10/20/2024 8:00 AM HAND II CUTTER Office Visit [facility] - Family Medicine [address] [facility], [address] [address] Kiana Cole MD [address] [place] [address] 11/28/2024 9:00 AM HAND II CUTTER Office Visit [facility] - Neurology [address] [facility], [place] [address] Aline Finch MD [address] [facility] [place] [address] 02/10/2025 10:00 AM CDT Office Visit [facility] - Cardiology [address] [id number] [place] [phone] Curly Lay MD [address] [place] [address] Scheduled Orders Name Type Priority Associated Diagnoses Orde r Schedule MICROALB/CREAT RATIO URINE RANDOM PANEL Lab Routine Essential hypertension Ordered: 11/05/2018 LIPID PROFILE Lab Routine Essential hypertension Ordered: 11/05/2018 documented as of this encounter Visit Diagnoses Diagnosis Essential hypertension- Primary Controlled type 2 diabetes mellitus without complication, without long-term current use of insulin (HCC) S/P CABG x 3 Postsurgical aortocoronary bypass status Mild intermittent asthma with acute exacerbation (HCC) Unspecified asthma, with exacerbation documented in this encounter Care Teams Merchandiser Seasonal Relationship Specialty Start Date End Date Lisy Olmedo MD PCP - General 04/20/09 05/09/22 documented as of this encounter
--- OUTSIDE RECORDS SUMMARY | 2024-10-11 19:45 | XMS_ITS | Encounter Summary ---
Author Organization [facility] Health Address [address] [facility] [place] [address] Care Team Providers Care Parachute Rigger Name Role Phone Lisy Olmedo MD Primary Care Provide r Reason for Visit * Reason Onset Date Comments Pre-op Instructions 11/05/2020 Encounter Details Date Type Department Care Team (Late st Contact Info) Description 11/05/2020 Patient Outreach [facility] [address] [place] [phone] Marlyn Monte, RN Pre-op Instructions Social History Tobacco Use Types Packs/Day Years [...] encounter Miscellaneous Notes * Telephone Encounter - Marlyn Monte RN - 11/05/2020 1:34 PM RN GERIATRIC Pt confirmed procedure and expressed understanding of all instructions. 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 Pt provided number to department for questions or concerns. GERIATRIC documented in this encounter Plan of Treatment Upcoming Encounters Date Type Department Care Team (Late st Contact Info) Description 10/20/2024 8:00 AM RN GERIATRIC Office Visit [facility] - Family Medicine [address] [facility], [facility] [address] [place] [phone] Kiana Cole MD [address] [place] [address] 11/28/2024 9:00 AM RN GERIATRIC Office Visit [facility] - Neurology [address] [facility], [place] [address] Aline Finch MD [address] [facility] [place] [address] 02/10/2025 10:00 AM CDT Office Visit [facility] - Cardiology [address] [facility] [place] [address] Curly Lay MD [address] [facility] [address] [place] [phone] documented as of this encounter Visit Diagnoses Not on filedocumented in this encounter Care Teams Parachute Rigger Relationship Specialty Start Date End Date Lisy Olmedo MD PCP - General 04/20/09 05/09/22 documented as of this encounter
--- OUTSIDE RECORDS SUMMARY | 2024-10-11 19:45 | XMS_ITS | Encounter Summary ---
Author Organization [facility] Health Address [address] [facility] [place] [address] Care Team Providers Care Associate Engineer Name Role Phone Lisy Olmedo MD Primary Care Provide r Reason for Visit * Auth/Cert Specialty Diagnoses / Procedures Referred By Contac t Referred To Contact Diagnoses Colon cancer screening Colon cancer screening [Z12.11] Procedures WI COLONOSCOPY,DIAGNOSTIC WI COLONOSCOPY,BIOPSY COLONOSCOPY SCREEN Referral ID Status Reason Start Date Expiration Date Visits Re quested Visits Authorized [id number] 1 1 Encounter Details Date Type Department Care Team (Latest Contact Info) Description 11/12/2020 9:34 AM FORESTRY EXTENSION SPECIALIST - 11/12/2020 2:23 PM [facility] Hospital Encounter [facility] [address] [place] [phone] Jodi Vernon MD [address] [facility] [address] DIV [place] [address] Gastroenterology Discharge Disposition: Home or Self Care Social [...] Sign Reading Time Taken Comments Blood Pressure 178/79 11/12/2020 1:58 PM FORESTRY EXTENSION SPECIALIST Pulse 72 11/12/2020 1:58 PM FORESTRY EXTENSION SPECIALIST Temperature 36.4 ??C (97.6 ??F) 11/12/2020 9:47 AM CS T Respiratory Rate 26 11/12/2020 1:58 PM FORESTRY EXTENSION SPECIALIST Oxygen Saturation 100% 11/12/2020 1:58 PM FORESTRY EXTENSION SPECIALIST Inhaled Oxygen Concentration - - Weight 160.4 kg (353 lb 9.6 oz) 11/12/2020 9:47 AM FORESTRY EXTENSION SPECIALIST Height 193 cm (6' 4 ) 11/12/2020 9:47 AM FORESTRY EXTENSION SPECIALIST Body Mass Index 43.04 11/12/2020 9:47 AM FORESTRY EXTENSION SPECIALIST documented in this encounter Functional Status Functional [...] encounter Discharge Instructions * Discharge Instructions* Keysha Cuenca RN - 11/12/2020 12:57 PM FORESTRY EXTENSION SPECIALIST Images from the original note were not [...] ask them during your visits. ?? Copyright [employer] 2019 Information is for End User's use only and may not be sold, redistributed or otherwise used for commercial purposes. All illustrations and images included in CareNotes?? are the copyrighted property of [employer]. or [employer] The above information is an educational administration teacher only. It is not intended as medical advice for individual conditions or treatments. Talk to your doctor, nurse or pharmacist before following any medical regimen to see if it is safe and effective for you. 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),Type 2 diabetes mellitus with other circulatory complication, without long-term current use of insulin (HCC) Take 1 tablet by mouth at bedtime 30 tablet 5 11/17/2019 12/27/2020 Blood Glucose Monitoring Suppl (ONE TOUCH ULTRA MINI) W/DEVICE KIT Check blood sugars twice daily 1 kit 03/19/2018 02/15/2024 blood glucose test strip Use 1 strip 2 times daily 100 strip 11 03/19/2018 02/15/2024 carvedilol (COREG) 25 MG tabletIndications:Coron susan artery disease involving tetlin coronary artery of tetlin heart with angina pectoris (HCC) Take 1 [...] complication, without long-term current use of insulin ([facility]) Take 1 tablet by mouth once daily 30 tablet 5 09/21/2020 05/13/2021 losartan (COZAAR) 100 MG tabletIndications:Essen tial hypertension Take 1 tablet by mouth once daily 30 tablet 5 09/21/2020 05/13/2021 metFORMIN ER 24hr (GLUCOPHAGE XR) 500 MG tabletIndications:Type 2 diabetes mellitus with other circulatory complication, without long-term current use of insulin ([facility]) Take 4 tablets by mouth daily with [...] patient verbalized understanding. Patient dischaged to home. STRY EXTENSION SPECIALIST * Keysha Cuenca RN - 11/12/2020 1:43 PM CST Patient complains of shortness of breath after endoscopy procedure. VS stable (blood pressure elevated but down from previous readings). Bilateral wheezes heard upon auscultation. Patient has historyof asthma. Dr. Lawson notified. Per verbal order from Dr. Lawson Duoneb administered. Will assessafter treatment. STRY EXTENSION SPECIALIST * Nathalie Rivas RN - 11/12/2020 12:15 PM CST Patients BP elevated. MD Lawson notified. Instructed patient to take his home dose of amlodipine. After 1 hour patients bp continues to be elevated 181/108. MD Lawson notified. Awaiting orders STRY EXTENSION SPECIALIST documented in this encounter H&P Notes * [...] insulin 09/28/2011 ??? Coronary artery disease involving tetlin heart with angina pectoris 09/04/2018 ??? Cough [...] risk Procedure Planned: Colonoscopy Jodi Vernon MD STRY EXTENSION SPECIALIST documented in this encounter Plan of Treatment Upcoming Encounters Date Type Department Care Team (Late st Contact Info) Description 10/20/2024 8:00 AM FORESTRY EXTENSION SPECIALIST Office Visit [facility] - Family Medicine [address] [facility], [facility] [address] [place] [phone] Kiana Cole MD [address] [place], [place] [phone] 11/28/2024 9:00 AM FORESTRY EXTENSION SPECIALIST Office Visit [facility] - Neurology [address] [facility], [place] [address] Aline Finch MD [address] [facility] [place] [address] 02/10/2025 10:00 AM CDT Office Visit [facility] - Cardiology [address] [facility], [facility] [address] [place] [address] Curly Lay MD [address] [facility] [address] [place] [address] documented as of this encounter Procedures Procedure Name Priority Date/Time Associated Diagnosis Comments COLONOSCOPY SCREEN 11/12/2020 12 :33 PM FORESTRY EXTENSION SPECIALIST Colon cancer screening ENDOSCOPY, COLON, SCREENING Routine 11/12/2020 12:12 PM FORESTRY EXTENSION SPECIALIST GLUCOSE - POINT OF CARE Routine 11/12/2020 10:17 AM FORESTRY EXTENSION SPECIALIST documented in this encounter Results * ENDOSCOPY, COLON, SCREENING (11/12/2020 12:12 PM FORESTRY EXTENSION SPECIALIST) Report Endoscopy POC Endoscopy Department Report _ [...] colon ?K64.8, Other hemorrhoids CPT copyright 2019 [employer]. All rights reserved. The codes documented in this report are preliminary and upon grading supervisor review may be revised to meet current compliance requirements. Jodi Vernon MD 11/12/2020 12:57:40 PM Note Initiated On: 11/12/2020 12:12 PM Number of Addenda: 0 ? [facility] ? [address] [place] [address] [facility] 11/12/2020 12:1 2 PM FORESTRY EXTENSION SPECIALIST Jodi Vernon MD GI PROCEDURE ORDER GISSEL [facility] * GLUCOSE - POINT OF CARE (11/12/2020 10:17 AM FORESTRY EXTENSION SPECIALIST) Glucose WB/POC 100 70 - 115 mg/dL 11/12/2020 10:44 AM FORESTRY EXTENSION SPECIALIST [facility] Specimen Type Venous 11/12/2020 10:44 AM FORESTRY EXTENSION SPECIALIST [facility] Blood BLOOD SPECIMEN / Unknown 11/12/2020 10:17 AM FORESTRY EXTENSION SPECIALIST 11/12/2020 10:44 AM FORESTRY EXTENSION SPECIALIST Jodi Vernon MD LAB - POINT OF CAR E ORDERABLES [facility] [address] [place] [phone], [facility] [phone] documented in this encounter Visit Diagnoses Diagnosis Uncomplicated asthma, unspecified asthma severity, unspecified whether persistent (HCC)- Primary documented in this encounter Administered Medications Inactive [...] 1400, Post-op $ Given 11/12/2020 1:39 PM FORESTRY EXTENSION SPECIALIST 3 mL documented in this encounter Active and Recently Administered Medications Times are shown in FORESTRY EXTENSION SPECIALIST. Scheduled Medication Order 11/10/2020 11/11/2020 11/12/2020 0.9% [...] RN) documented in this encounter Care Teams Associate Engineer Relationship Specialty Start Date End Date Lisy Olmedo MD PCP - General 04/20/09 05/09/22 documented as of this encounter
--- OUTSIDE RECORDS SUMMARY | 2024-10-11 19:45 | XMS_ITS | Encounter Summary ---
Author Organization [facility] Health Address [address] [facility] [place] [address] Care Team Providers Care Records Management Associate Name Role Phone Lisy Olmedo MD Primary Care Provide r Reason for Visit * Reason Comments Refill Request Encounter Details Date Type Department Care Team (Late st Contact Info) Description 04/12/2019 Refill [facility] Family and Community Medicine [phone] [place], [place] [phone] Mark Raya MD [address] [facility] [address] [place] [address] Refill Request Social History Tobacco Use Types Packs/Day Years [...] encounter Miscellaneous Notes * Telephone Encounter - Josefina Jeffries - 04/14/2019 3:03 PM CDT This patients pharmacy called/LVM/sent a fax requesting a refill on the medication(s) listed below: Requested Prescriptions Pending Prescriptions Disp Refills ??? metFORMIN (GLUCOPHAGE) 1000 MG tablet [Pharmacy Med Name: METFORMIN 1000MG TAB] 180 tablet 0 Sig: TAKE 1 TABLET BY MOUTH TWICE DAILY WITH MORNING MEAL AND WITH EVENING MEAL Last Office Visit: 01/23/19 Next Scheduled Office Visit: None Recommended F/U Date by provider: 07/25/19 Taken by JENNIFER Irby. documented in this encounter Plan of Treatment Upcoming Encounters Date Type Department Care Team (Late st Contact Info) Description 10/20/2024 8:00 AM BUFFING WHEEL FORMER MACHINE Office Visit [facility] - Family Medicine [address] [facility], [facility] [address] [place] [phone] Kiana Cole MD [address] [place] [address] 11/28/2024 9:00 AM BUFFING WHEEL FORMER MACHINE Office Visit [facility] - Neurology [address] [facility], [place] [phone] Aline Finch MD [address] [facility] [place] [address] 02/10/2025 10:00 AM CDT Office Visit [facility] - Cardiology [address] [facility], [facility] [address] [place] [address] Curly Lay MD [address] [facility] [address] [place] [address] documented as of this encounter Visit Diagnoses Not on filedocumented in this encounter Care Teams Records Management Associate Relationship Specialty Start Date End Date Lisy Olmedo MD PCP - General 04/20/09 05/09/22 documented as of this encounter
--- OUTSIDE RECORDS SUMMARY | 2024-10-11 19:45 | XMS_ITS | Encounter Summary ---
Author Organization [facility] Health Address [address] [place] [address] Care Team Providers Care Hourly Manager Name Role Phone Lisy Olmedo MD Primary Care Provide r Reason for Visit * Reason Onset Date Comments MEDICATION REFILL 03/03/2019 Encounter Details Date Type Department Care Team (Late st Contact Info) Description 03/03/2019 Refill [facility] [address] [address] Lisy Olmedo MD [address] [place] [address] MEDICATION REFILL Social History Tobacco Use Types [...] 10/20/2024 8:00 AM DUCO POLISHER Office Visit [facility] - Family Medicine [address] [facility], [facility] [address] [place] [phone] Kiana Cole MD [address] [place] [address] 11/28/2024 9:00 AM DUCO POLISHER Office Visit [facility] - Neurology [address] [facility], [place] [address] Aline Finch MD [address] [facility] [place] [address] 02/10/2025 10:00 AM CDT Office Visit [facility] - Cardiology [address] [facility] [place] [address] Curly Lay MD [address] [address] documented as of this encounter Visit Diagnoses Not on filedocumented in this encounter Care Teams Hourly Manager Relationship Specialty Start Date End Date Lisy Olmedo MD PCP - General 04/20/09 05/09/22 documented as of this encounter
--- OUTSIDE RECORDS SUMMARY | 2024-10-11 19:45 | XMS_ITS | Encounter Summary ---
Author Organization [facility] Address [address] [place] [address] Care Team Providers Care Slurry Tank Tender Name Role Phone Lisy Olmedo MD Primary Care Provide r Reason for Visit * Reason Onset Date Comments Post Op Call 11/15/2020 Encounter Details Date Type Department Care Team (Late st Contact Info) Description 11/15/2020 Telephone [facility] [address] [place] [address] Anjelica Richmond, ZACHARY Post Op Call Social History Tobacco Use Types Packs/Day [...] st Contact Info) Description 10/20/2024 8:00 AM HOME CARE AIDE Office Visit [facility] - Family Medicine [address] [place] [phone] Kiana Cole MD [address] [place] [address] 11/28/2024 9:00 AM HOME CARE AIDE Office Visit [facility] - Neurology [address] [facility] [place] [address] Aline Finch MD [address] [facility] [place] [address] 02/10/2025 10:00 AM CDT Office Visit [facility] - Cardiology [address] [facility], [facility] [address] [place] [address] Curly Lay MD [address] [facility] [address] [place] [address] documented as of this encounter Visit Diagnoses Not on filedocumented in this encounter Care Teams Slurry Tank Tender Relationship Specialty Start Date End Date Lisy Olmedo MD PCP - General 04/20/09 05/09/22 documented as of this encounter
--- OUTSIDE RECORDS SUMMARY | 2024-10-11 19:45 | XMS_ITS | Encounter Summary ---
Author Organization [facility] Address [address] [place] [address] Care Team Providers Care Microsoft Office Instructor Name Role Phone Lisy Olmedo MD Primary Care Provide r Reason for Visit * Reason Comments Diabetes Mellitus Hypertension Encounter Details Date Type Department Care Team (Late st Contact Info) Description 11/17/2019 3:40 PM ENERGY SCHEDULER Office Visit [facility] [address] [address] Lisy Olmedo MD [address] [place] [address] Essential hypertension (Primary Dx); Coronary artery disease involving coronary bypass graft of [place] heart with unstable angina pectoris (HCC); Coronary artery disease involving [place] coronary artery of [place] heart with angina pectoris (HCC); Type 2 diabetes mellitus with other circulatory complication, without long-term current use of insulin (HCC); S/P CABG x 3; Hypertension, unspecified type; Controlled type 2 diabetes mellitus without complication, without long-term current use of insulin (HCC); Mild intermittent asthma with acute exacerbation (HCC); [...] Sign Reading Time Taken Comments Blood Pressure 154/94 11/17/2019 4:18 PM ENERGY SCHEDULER Pulse 78 11/17/2019 4:18 PM ENERGY SCHEDULER Temperature 37 ??C (98.6 ??F) 11/17/2019 4:18 PM ENERGY SCHEDULER Respiratory Rate - - Oxygen Saturation 97% 11/17/2019 4:18 PM ENERGY SCHEDULER Inhaled Oxygen Concentration - - Weight 142.9 kg (315 lb) 11/17/2019 4:18 PM ENERGY SCHEDULER Height 193 cm (6' 4 ) 11/17/2019 4:18 PM ENERGY SCHEDULER Body Mass Index 38.34 11/17/2019 4:18 PM ENERGY SCHEDULER documented in this encounter Functional Status Functional [...] Progress Notes * Lisy Olmedo MD - 11/17/2019 4:24 PM CST Pt here today for HTN f/u Diet: eating out a lot Exercise: none Chest pain:none SOB:none Ext:no swelling BP readings:n/a Hx of DM Clinical Data Management Manager:none BS readings: n/a Checks sugars:n/a Shoes in home: yes Exercise:none Eye exam: 1 year ago Has gained 13# Hx of CAD Has not seen cardiology in several months Outpatient Medications Prior to Visit Medication Sig [...] 5 ??? metFORMIN (GLUCOPHAGE) 1000 MG tablet TAKE 1 TABLET BY MOUTH TWICE DAILY WITH MORNING MEAL AND WITH EVENING MEAL 180 tablet 1 ??? nitroGLYCERIN (NITROSTAT) 0.4 MG tablet Dissolve 1 tablet under the tongue every 5 minutes as needed for Angina 20 tablet 1 ??? One Touch Delica Lancets Use 2 times daily Check blood sugars twice daily. 100 Each 11 ??? sildenafil (REVATIO) 20 MG tablet Take 2-5 tablets by mouth 5 times daily as needed 30 tablet 2 No facility-administered medications prior to visit. Past medical history reviewed and updated. Review of Systems Pertinent items are noted in HPI. Review of Systems - History obtained from the patient Constitutional: Negative for fatigue, fevers, chills, sweats. Respiratory: Negative for shortness of breath, dyspnea on exertion, acute cough, wheezing Cardiovascular: Negative for palpitations, tachycardia, near-syncope, lower extremity edema, chest pain GI: Negative abd pain, nausea, vomiting, melena, hematemesis Neuro: Negative for headaches, tingling, dizziness Musculoskeletal: No edema; no pain to palpation Vitals: 11/17/19 1618 BP: 154/94 Pulse: 78 Temp: 98.6 ??F (37 ??C) SpO2: 97% Weight: (!) 315 lb (142.9 kg) Height: 6' 4 (1.93 m) General appearance: alert, cooperative, no distress Eyes: sclera and conjunctiva clear, EOMI and PERRLA, lids normal Neck: range of motion is intact, no masses, thyroid not enlarged, no adenopathy Nodes: no cervical, supraclavicular adenopathy Chest: no tenderness Lungs: breath sounds normal and symmetric; no rales or wheezes Heart: regular rhythm, normal S1 and S2, without murmurs, gallops or rubs Abdomen: soft without mass, non-tender, with normal bowel sounds MSK: no edema; non tender to palpation Diabetic Foot Exam Bilateral feet examined with shoe(s) and sock(s) removed. Visual inspection: thickened toenails; corn on left 2nd toel tender to palpation. Sensory exam with monofilament: Normal. Dorsal pedal and posterior tibial pulses: Normal. Yaya Cummins was seen today for diabetes mellitus and hypertension. Diagnoses and all orders for this visit: Essential hypertension - amLODIPine (NORVASC) 10 MG tablet; Take 1 tablet by mouth at bedtime - losartan (COZAAR) 100 MG tablet; Take 1 tablet by mouth once daily - furosemide (LASIX) 40 MG tablet; Take 1 tablet by mouth once daily - atorvastatin (LIPITOR) 80 MG tablet; Take 1 tablet by mouth at bedtime Coronary artery disease involving coronary bypass graft of [place] heart with unstable angina pectoris Coronary artery disease involving [place] coronary artery of [place] heart with angina pectoris - carvedilol (COREG) 25 MG tablet; Take 1 tablet by mouth 2 times daily with morning and evening meal - atorvastatin (LIPITOR) 80 MG tablet; Take 1 tablet by mouth at bedtime Type 2 diabetes mellitus with other circulatory complication, without long-term current use of insulin - glipiZIDE CR 24hr (GLIPIZIDE XL) 5 MG tablet; Take 1 tablet by mouth once daily - atorvastatin (LIPITOR) 80 MG tablet; Take 1 tablet by mouth at bedtime - metFORMIN ER 24hr (GLUCOPHAGE XR) 500 MG tablet; Take 4 tablets by mouth daily with dinner - HEMOGLOBIN A1C - POINT OF CARE (AMB) [facility] - Cancel: AMB REFERRAL TO PODIATRY; Future - AMB REFERRAL TO PODIATRY; Future S/P CABG x 3 Hypertension, unspecified type Controlled type 2 diabetes mellitus without complication, without long-term current use of insulin - glipiZIDE CR 24hr (GLIPIZIDE XL) 5 MG tablet; Take 1 tablet by mouth once daily Mild intermittent asthma with acute exacerbation - albuterol HFA (PROVENTIL;VENTOLIN;PROAIR) 108 (90 Base) MCG/ACT inhaler; Inhale 2 puffs by mouth every 4 hours as needed for Wheezing Erectile dysfunction, unspecified erectile dysfunction type - Discontinue: sildenafil (REVATIO) 20 MG tablet; Take 2-5 tablets by mouth 5 times daily as needed - sildenafil (REVATIO) 20 MG tablet; Take 2-5 tablets by mouth 5 times daily as needed Pt to cont current meds Check BP twice per week Eat low salt diet Exercise for at least 150 minutes per week Meds refilled GY SCHEDULER documented in this encounter Plan of Treatment Upcoming Encounters Date Type Department Care Team (Late st Contact Info) Description 10/20/2024 8:00 AM ENERGY SCHEDULER Office Visit [facility] - Family Medicine [address] [phone] Kiana Cole MD [address] [place] [phone] 11/28/2024 9:00 AM ENERGY SCHEDULER Office Visit [facility] - Neurology [address] [facility], [place] [phone] Aline Finch MD [address] [facility] [place] [address] 02/10/2025 10:00 AM CDT Office Visit [facility] - Cardiology [address] [facility] [place] [phone] [place] [address] Curly Lay MD [address] [address] documented as of this encounter Procedures Procedure Name Priority Date/Time Associated Diagnosis Comments HEMOGLOBIN A1C - POINT OF CARE (AMB) [facility] Routine 11/17/2019 Type 2 diabetes mellitus with other circulatory complication, without long-term current use of insulin (HCC) documented in this encounter Results * HEMOGLOBIN A1C - POINT OF CARE (AMB) [facility] (11/17/2019) Hemoglobin A1c POCT 6.4 BLOOD SPECIMEN / Unknown 11/17/2019 Lisy Olmedo MD LAB - POINT O F CARE ORDERABLES documented in this encounter Visit Diagnoses Diagnosis Essential hypertension- Primary Coronary artery disease involving coronary bypass graft of [place] heart with unstable angina pectoris (HCC) Coronary artery disease involving [place] coronary artery of [place] heart with angina pectoris (HCC) Type 2 diabetes mellitus with other circulatory complication, without long-term current use of insulin (HCC) S/P CABG x 3 Postsurgical aortocoronary bypass status Hypertension, unspecified type Controlled type 2 diabetes mellitus without complication, without long-term current use of insulin (HCC) Mild intermittent asthma with acute exacerbation (HCC) Unspecified asthma, with exacerbation Erectile dysfunction, unspecified erectile dysfunction type documented in this encounter Care Teams Microsoft Office Instructor Relationship Specialty Start Date End Date Lisy Olmedo MD PCP - General 04/20/09 05/09/22 documented as of this encounter
--- OUTSIDE RECORDS SUMMARY | 2024-10-11 19:45 | XMS_ITS | Encounter Summary ---
Author Organization [facility] Health Address [address] [place] [address] Care Team Providers Care Drafter Construction Name Role Phone Lisy Olmedo MD Primary Care Provide r Reason for Referral * Radiology Services (Routine) - Closed Specialty Diagnoses / Procedures Referred By Contac t Referred To Contact CT Scan Diagnoses Coronary artery disease involving coronary bypass graft of snoqualmie heart with unstable angina pectoris (HCC) Essential hypertension Coronary artery disease involving snoqualmie coronary artery of snoqualmie heart with angina pectoris (HCC) Type 2 diabetes mellitus with other circulatory complication, without long-term current use of insulin (HCC) S/P CABG x 3 Hypertension, unspecified type Aortic dilatation (HCC) Procedures CT ANGIO AORTIC ROOT CT ANGIO AORTA FOR DISSECTION Nehemias Dennis MD [address] [place] [address] [facility] [address] [place] [address] Referral ID Status Reason Start Date Expiration Date Visits Re quested Visits Authorized [id number] Closed 01/16/2019 07/15/2019 1 1 Reason for Visit * Reason Comments Coronary Artery Disease Encounter Details Date Type Department Care Team ([facility] st Contact Info) Description 01/16/2019 11:00 AM CDT Office Visit [facility] Cardiology [address] [facility] [address] [place] [address] Nehemias Dennis MD [address] [place] [address] Coronary artery disease involving coronary bypass graft of snoqualmie heart with unstable angina pectoris (HCC) (Primary Dx); Essential hypertension; Coronary artery disease involving snoqualmie coronary artery of snoqualmie heart with angina pectoris (HCC); Type 2 diabetes mellitus with other circulatory complication, without long-term current use of insulin (HCC); S/P CABG x 3; Hypertension, unspecified type; Aortic dilatation (HCC) Social History Tobacco Use Types Packs/Day [...] Sign Reading Time Taken Comments Blood Pressure 180/90 01/16/2019 11:18 AM CDT Pulse 60 01/16/2019 11:18 AM CDT Temperature - - Respiratory Rate - - Oxygen Saturation - - Inhaled Oxygen Concentration - - Weight 140.6 kg (310 lb) 01/16/2019 11:18 AM CDT Height 193 cm (6' 4 ) 01/16/2019 11:18 AM CDT Body Mass Index 37.73 01/16/2019 11:18 AM CDT documented in this encounter Functional [...] this encounter Patient Instructions * Patient Instructions* Ampadu, Nehemias Oware, MD - 01/16/2019 11:45 AM CDT Start taking carvedilol (coreg) 25 mg twice a day and stop taking metoprolol Start taking losartan 100 mg daily We will get CT scan to evaluate the size of your aorta (big blood vessel in the chest) documented in this encounter Progress Notes * Lulu Greenwood MD - 01/16/2019 11:40 AM CDT HPI: Mr. Vazquez presents to clinic for follow-up of CAD and CABG and HTN and DM. ADmitted with chest pain recently and stress and echo have been normal. Since his last visit, he states that he feels well. No Additional chest pain. Review of Systems: History obtained from the patient Negative after 10 pt. system review except for what is already noted in the HPI. Medications (reviewed with patient): Current Outpatient Prescriptions Medication Sig Dispense Refill ??? albuterol HFA [...] 30 tablet 2 No current facility-administered medications for this visit. Physical Examination: BP 180/90 (BP SITE: RIGHT ARM, BP POSITION: SITTING, BP CUFF SIZE: 12) Pulse 60 Ht 6' 4 (1.93 m) Wt 310 lb (140.6 kg) BMI 37.73 kg/m2 General: NAD HEENT: Mucous membranes are moist. NC/AT. CARDS: Regular rate and rhythm. Normal S1/S2. No gallops. No high-grade murmurs. Carotid upstrokes brisk bilaterally without bruits. No JVD. PULM: Clear to auscultation bilaterally Abdomen: Nontender Extremities: No edema. PT pulses normal bilaterally and equal Neuro: AAO x 3. Intact motor strength. Skin: no rashes identified. Data: CBC: Recent Labs Component Name 09/06/18 0318 09/04/18 0923 01/29/18 0620 11/09/17 1521 WBC 5.3 5.3 7.3 - 8.0 RBC 4.64 4.54 3.11* - 5.14 HGB 13.3 13.2 8.8* - 14.1 HCT 40.5 40.3 27.7* - 42.9 PLT - - - - 319 - = values in this interval not displayed. BMP: Recent Labs Component Name 09/06/18 0318 09/04/18 0956 03/22/18 1147 01/29/18 0620 01/28/18 0655 01/27/18 0654 01/24/18 1345 01/24/18 1247 01/24/18 0953 NA - - - 136 136 138 - - - - K - - - - - - - 5.2 6.1* 4.6 CL - - - 97* 97* 100 - - - - CO2 28 28 25 26 30* 26 - - - - BUN 14 9 16 12 9 8 - - - - CREATININE 0.97 0.88 0.90 1.0 0.9 0.9 - - - - GLU - - - 170* 144* 129* - - - - CALCIUM 8.5 8.4* 9.2 9.1 8.7 9.1 - - - - - = values in this interval not displayed. Magnesium: No results for input(s): MG in the last 20208 hours. Phosphorus: Recent Labs Component Name 01/29/18 0620 01/28/18 0655 01/27/18 0654 PHOS 3.0 3.6 3.7 Coagulation: Recent Labs Component Name 01/25/18 0026 01/24/18 1540 01/24/18 1345 PT 14.2 14.7 17.4* INR 1.1 1.2 1.4 Cardiac profile: Recent Labs Component Name 09/06/18 0318 09/04/18 1401 09/04/18 0956 09/04/18 0923 TROPONINI 0.050* 0.097* 0.049 0.039 Cholesterol: Recent Labs Component Name 03/13/18 1337 11/19/15 0923 CHOL 247* 194 Triglycerides: Recent Labs Component Name 03/13/18 1337 11/19/15 0923 TRIG 79 144 HDL: Recent Labs Component Name 03/13/18 1337 11/19/15 0923 HDL 80 41 LDL: Recent Labs Component Name 03/13/18 1337 11/19/15 0923 LDLCALC 149* 124 HgbA1c: Recent Labs Component Name 09/05/18 0342 01/11/18 1548 10/19/17 HGBA1C 6.6* 6.4* 5.8 Stress andrés 08/2018: CONCLUSION: ?? No focal fixed or reversible perfusion defect. ?? Left ventricular ejection fraction 49% with mild global hypokinesis. Most recent echo: 08/2018 Left ventricle: Size was normal. Systolic function was at the lower limits of normal. Ejection fraction was estimated to be 50 %. There were no regional wall motion abnormalities. Wall thickness was normal. ?? Aortic valve: The valve was trileaflet. Leaflets exhibited normal thickness and normal cuspal separation. Doppler: There was no stenosis. There was no regurgitation. ?? Aorta: The root exhibited normal size. ?? Mitral valve: Valve structure was normal. There was normal leaflet separation. Doppler: There was no evidence for stenosis. There was no regurgitation. ?? Left atrium: Size was normal. ?? Right ventricle: The size was normal. Systolic function was normal. Wall thickness was normal. ?? Pulmonic valve: Leaflets exhibited normal thickness, no calcification, and normal cuspal separation. Doppler: There was no regurgitation. ?? Pulmonary artery: The size was normal. Doppler: Systolic pressure was within the normal range. ?? Tricuspid valve: The valve structure was normal. There was normal leaflet separation. Doppler: There was no evidence for tricuspid stenosis. There was no regurgitation. ?? Right atrium: Size was normal. ?? Pericardium: The pericardium was normal in appearance. ?? Impression and Plan: 1. CAD, CABG 2. HTN 3. Question of dilated ascending aorta Change to coreg for better BP control Increase losartan Follow with [facility] for BP check Remote rehab CTA for aorta. Lulu Greenwood MD, MD [employer] Transactions Attorney [place] [facility] 01/16/2019 * Nehemias Dennis MD - 01/16/2019 11:05 AM CDT Apolinar is a 58 y.o. male with a history of CAD s/p CABG x3 (VALENZUELA to LAD, Radial to OM, SVG to PDA) on01/2018, hypertension, hyperlipidemia, and diabetes mellitus type II who [facility] Pt states doing well. Pt was hospitalized overnight for chest pain, had echo and stress test no inducible ischemia. Pt states has not had chest pain since Nov, denies palpitations, dyspnea on exertion, orthopnea-sleeps on 2 pillows, PND. Pt adds some leg swelling more in surgical leg. Pt adds pain in knee of graft site more in joint pain. Pt did do cardiac rehab but did not complete. Pt states not exercise regimen, can walk few blocks more due to knee discomfort. Review of Systems: A comprehensive 12 point review of systems was performed. All pertinent positives are per HPI; otherwise negative. Past Medical History: Diagnosis Date ??? Diabetes mellitus ??? 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 Quit prior to surgery. ETOH: occasional 5/week, heavy use in past Recreational Drugs: quit crack/cocaine, last use 08/2017, over 20 years. Marijuana use. Family Hx: Family History Family History Problem Relation Age of Onset ??? Cancer Mother ??? Diabetes Father ??? Hypertension Father Current Outpatient Prescriptions Medication Sig Dispense Refill ??? nitroglycerin (NITROSTAT) 0.4 MG SL tablet 1 tablet by Sublingual route Every 5 minutes as needed for Chest pain. 20 tablet 1 ??? sildenafil citrate (REVATIO) 20 MG Tab tablet Take 2-5 tablets by mouth Daily as needed (erectile dysfunction). 30 tablet 2 ??? atorvastatin (LIPITOR) 40 MG tablet Take 1 tablet by mouth Daily. 30 tablet 1 ??? amLODIPine (NORVASC) 10 MG tablet Take 1 tablet by mouth Daily. 30 tablet 2 ??? glipiZIDE XL (GLIPIZIDE XL) 5 MG CR tablet Take 1 tablet by mouth Daily. 30 tablet 2 ??? losartan-hydrochlorothiazide (HYZAAR) 100-25 MG tablet Take 1 tablet by mouth Daily. 30 tablet 2 ??? metFORMIN (GLUCOPHAGE) 1000 MG tablet TAKE ONE TABLET BY MOUTH TWICE DAILY WITH MEALS 60 tablet2 ??? Calcium Carb-Cholecalciferol (CALCIUM 600/VITAMIN D3) 600-800 MG-UNIT Tab Take 1 tablet by mouth Daily. ??? sitaGLIPtin (JANUVIA) 100 MG Tab Take 1 tablet by mouth Daily. 30 tablet 1 ??? Aspirin (ASPIR-LOW) 81 MG PO Tablet Delayed Response Take 81 mg by mouth Daily. No current facility-administered medications for this visit. Allergies Allergen Reactions ??? Pcn [Penicillin V] Rash ??? No Known Latex Allergy Current Outpatient Prescriptions Medication Sig Dispense Refill ??? nitroglycerin (NITROSTAT) 0.4 MG SL tablet 1 tablet by Sublingual route Every 5 minutes as needed for Chest pain. 20 tablet 1 ??? sildenafil citrate (REVATIO) 20 MG Tab tablet Take 2-5 tablets by mouth Daily as needed (erectile dysfunction). 30 tablet 2 ??? atorvastatin (LIPITOR) 40 MG tablet Take 1 tablet by mouth Daily. 30 tablet 1 ??? amLODIPine (NORVASC) 10 MG tablet Take 1 tablet by mouth Daily. 30 tablet 2 ??? glipiZIDE XL (GLIPIZIDE XL) 5 MG CR tablet Take 1 tablet by mouth Daily. 30 tablet 2 ??? losartan-hydrochlorothiazide (HYZAAR) 100-25 MG tablet Take 1 tablet by mouth Daily. 30 tablet 2 ??? metFORMIN (GLUCOPHAGE) 1000 MG tablet TAKE ONE TABLET BY MOUTH TWICE DAILY WITH MEALS 60 tablet2 ??? Calcium Carb-Cholecalciferol (CALCIUM 600/VITAMIN D3) 600-800 MG-UNIT Tab Take 1 tablet by mouth Daily. ??? sitaGLIPtin (JANUVIA) 100 MG Tab Take 1 tablet by mouth Daily. 30 tablet 1 ??? Aspirin (ASPIR-LOW) 81 MG PO Tablet Delayed Response Take 81 mg by mouth Daily. No current facility-administered medications for this visit. BP 180/90 BP Location: Left arm, Patient Position: Sitting) Pulse 60 Ht 6' 3 (1.905 m) Wt 288 lb (130.6 kg) SpO2 98% BMI 36 kg/m2 General: AOx3, NAD CV: RRR without murmurs/gallops. Normal S1S2. No JVD or carotid bruits. Chest: sternotomy present, Respiratory: CTA (B) Abdomen: Soft, Nontender, Nondistended, +BS Extremities: Warm, no edema, peripheral pulses +2 throughout Most Recent Labs/Data: Last EC10/2017 NSR with early repolarization Last Echo/Stress: 08/2018 ECHO OSH - ??Left ventricle: - ??Systolic function was at the lower limits of normal. Ejection ??fraction was estimated to be 50 %. - ??There were no regional wall motion abnormalities. - ??Wall thickness was normal. ?? 01/25/2018 ECHO There is mild concentric left ventricular hypertrophy. The LV cavity size is normal. Left ventricular systolic function is normal without wall motion abnormalities. Estimated LV EF is 55%. Dilated aortic root? 4.1 cm at the sinus of Valsalva. Proximal ascending aorta is 3.4cm 08/2018 OSH NM stress No focal fixed or reversible perfusion defect. Left ventricular ejection fraction 49% with mild global hypokinesis. 10/2017 NM stress 1. Abnormal exercise test because of ST segment depression 2. Blood pressure response was normal. Heart rate response was normal. Exercise tolerance was fair. 3. This is a high risk study:No Myocardial perfusion imaging is abnormal. Overall left ventricular systolic function was abnormal with regional wall motion abnormalities as described above. The type and distribution of the scintigraphic finding is consistent with moderately severe inferior and inferolateral ischemia. No previous study was available for comparison. Last Cath: 11/2017 Cath ??i.?Left main: large caliber vessel that is without angiographic evidence of atherosclerotic disease ii.? LAD: There is a severe 90% stenosis of the proximal segment.?D1 is without angiographic evidence of atherosclerotic disease.?The middle segment of the LAD has a mild 20% stenosis. The remainder of the LAD system is without angiographic evidence of atherosclerotic disease.? iii.? LCx: nondominant vessel that gives rise to a high OM1 branch.?The proximal LCx and OM1 are without angiographic evidence of atherosclerotic disease. The middle segment of the LCx has a moderate 50% stenosis, followed by a severe 80% stenosis, followed by a moderate 40% stenosis.?There are 3 other OM branches, and the system terminates with a PL branch.? iv.? RCA: dominant vessel.?The proximal and middle segments have serial mild and moderate stenoses around the first bend ranging in severity of 30-50%.?Just prior to the second bend, the middle segment has a severe 70% stenosis. The distal segment of the RCA has luminal irregularities of up to 10-20% prior to terminating as a PDA branch. The PDA branch is without angiographic evidence of atherosclerotic disease.? Last Lipids: Lab Results Component Value Date CHOL 194 11/19/2015 HDL 41 11/19/2015 LDLCALC 124 11/19/2015 TRIG 144 11/19/2015 CHOLHDL 4.7 11/19/2015 Assessment/Plan: Coronary artery disease- s/p CABG x3 (VALENZUELA to LAD, Radial to OM, SVG to PDA) on 01/2018 -switch metoprolol to coreg 25 mg BID -increase losartan 100 mg -F/U CASCADE OPERATOR in 1-2 weeks -lasix 40 mg daily -atorvastatin 80 mg -continue bASA daily -remote cardiac rehab? HTN -coreg 25 mg BID -amlodipine 10 mg -losartan 100 mg Aortic dilatation- on echo 4.1 cm at sinus of valsalva, last echo normal -CT angio to evaluate Yaya Vazquez left clinic with the following instructions: As above documented in this encounter Plan of Treatment Upcoming Encounters Date Type Department Care Team (Late st Contact Info) Description 10/20/2024 8:00 AM CONSUMER PRODUCT ADVISOR Office Visit [facility] - Family Medicine [address] [facility] [address] [place] [id number] Kiana Cole MD [address] [place] [address] 11/28/2024 9:00 AM CONSUMER PRODUCT ADVISOR Office Visit [facility] - Neurology [address] [facility] [place] [address] Aline Finch MD [address] [facility] [place] [address] 02/10/2025 10:00 AM CDT Office Visit [facility] - Cardiology [address] [facility], [address] [address] Curly Lay MD [id number] [place] [address] documented as of this encounter Results * CT ANGIO AORTIC ROOT (02/11/2019 5:56 PM CDT) Anatomical Region Laterality Modality Chest Computed Tomogra phy 02/11/2019 7:06 PM CDT Impressions 02/12/2019 4:18 PM CDT IMPRESSION: 1. Ectatic ascending aorta with vascular measurements as above. 2. Postoperative appearance from median sternotomy. Dictated by Yeyo Birmingham MD (residential appliance repair technician). I, Dr. Lobito URIAS M.D. have personally reviewed and interpreted this examination/study. This report was electronically signed by Lobito URIAS M.D. ??on 02/12/2019 4:18 PM . Narrative [...] well aligned and intact. Procedure Note Niyah Urias MD - 02/12/2019 EXAMINATION: Computed tomography (CT) [...] median sternotomy. Dictated by Yeyo Birmingham MD (residential appliance repair technician). I, Dr. Lobito URIAS M.D. have personally reviewed and interpretedthis examination/study. This report was electronically signed by Lobito URIAS M.D. on 02/12/2019 4:18 PM . Nehemias Dennis MD CT ORDERABLES documented in this encounter Visit Diagnoses Diagnosis Coronary artery disease involving coronary bypass graft of snoqualmie heart with unstable angina pectoris (HCC)- Primary Essential hypertension Coronary artery disease involving snoqualmie coronary artery of snoqualmie heart with angina pectoris (HCC) Type 2 diabetes mellitus with other circulatory complication, without long-term current use of insulin (HCC) S/P CABG x 3 Postsurgical aortocoronary bypass status Hypertension, unspecified type Aortic dilatation (HCC) Aortic ectasia, unspecified site Coronary artery disease involving coronary bypass graft of snoqualmie heart with unstable angina pectoris (HCC) Essential hypertension Coronary artery disease involving snoqualmie coronary artery of snoqualmie heart with angina pectoris (HCC) Type 2 diabetes mellitus with other circulatory complication, without long-term current use of insulin (HCC) S/P CABG x 3 Postsurgical aortocoronary bypass status Hypertension, unspecified type Aortic dilatation (HCC) Aortic ectasia, unspecified site documented in this encounter Care Teams Drafter Construction Relationship Specialty Start Date End Date Lisy Olmedo MD PCP - General 04/20/09 05/09/22 documented as of this encounter
--- OUTSIDE RECORDS SUMMARY | 2024-10-11 19:45 | XMS_ITS | Encounter Summary ---
Author Organization [facility] Address [address] [facility] [place] [address] Care Team Providers Care Health And Wellness Instructor Name Role Phone Sylvain Daniels MD Primary Care Provider [phone]- [phone] Sylvain Daniels MD Unavailable [phone] Reason for Visit * Reason Onset Date Comments Hospital Follow-up 08/03/2022 Encounter Details Date Type Department Care Team (Late st Contact Info) Description 08/03/2022 Telephone [facility] - Pulmonology [address] [facility] [address] [place] [id number] [place] [address] [facility] [address] [place] [address] Hospital Follow-up Social History Tobacco Use Types Packs/Day Years [...] encounter Miscellaneous Notes * Telephone Encounter - Elisabeth Hennessy RN - 08/07/2022 5:05 PM CDT Left second message providing call back # if patient wishes to schedule appointment. * Telephone Encounter - Elisabeth Hennessy RN - 08/04/2022 2:28 PM CDT Left detailed message providing Dr. Spann's response. Call back # provided. * Telephone Encounter - Joshua Spann MD - 08/04/2022 2:02 PM CDT Under ideal conditions, pt like this would be seen in 2-3 wks after DC. If pt is stable, could extend this out further, especially if pt financially unable to see us. Would encourage pt to f/u with PCP who can help decide and discuss with pt how soon he may need to see us in evaluation. * Telephone Encounter - Sharyn Hilario MA - 08/04/2022 8:21 AM CDT Images from the original note were not included. Per Debbi, case management is who placed the call to office and requested that we call the patient.This appears to be a new patient. I do not see that anyone followed in patient. Please advise. See note below from Jory Saul: * Telephone Encounter - Debbi Abraham - 08/03/2022 3:48 PM CDT Patient needs an hospital follow up documented in this encounter Plan of Treatment Upcoming Encounters Date Type Department Care Team (Late st Contact Info) Description 10/20/2024 8:00 AM RECONSTRUCTIVE DENTIST Office Visit [facility] - Family Medicine [address] [facility], [address] [address] Kiana Cole MD [address] [place] [address] 11/28/2024 9:00 AM RECONSTRUCTIVE DENTIST Office Visit [facility] - Neurology [address] [facility], [place] [address] Aline Finch MD [address] [facility] [place] [address] 02/10/2025 10:00 AM CDT Office Visit [facility] - Cardiology [address] [id number] [place] [address] Curly Lay MD [address] [place] [address] documented as of this encounter Visit Diagnoses Not on filedocumented in this encounter Care Teams Health And Wellness Instructor Relationship Specialty Start Date End Date Sylvain Daniels MD PCP - General Family Medicine 05/10/22 02/14/24 Sylvain Daniels MD [address] [facility] [place] [id number] PCP - Attributed-[facility] Commercial 05/15/22 10/01/22 documented as of this encounter
--- OUTSIDE RECORDS SUMMARY | 2024-10-11 19:45 | XMS_ITS | Encounter Summary ---
Author Organization [facility] Health Address [address] [facility] [place] [address] Care Team Providers Care Cement Finisher Apprentice Name Role Phone Lisy Olmedo MD Primary Care Provide r Reason for Visit * Auth/Cert Specialty Diagnoses / Procedures Referred By Jenna saleem Referred To Contact Diagnoses Colon cancer screening Colon cancer screening [Z12.11] Procedures WI COLONOSCOPY,DIAGNOSTIC WI COLONOSCOPY,BIOPSY COLONOSCOPY SCREEN Referral ID Status Reason Start Date Expiration Date Visits Re quested Visits Authorized [id number] 1 1 Encounter Details Date Type Department Care Team (Late st Contact Info) Description 11/12/2020 12:26 PM DRAW OPERATOR Anesthesia Event [facility] [address] [place] [phone] Kvng Lawson MD RETIRED Nehemias Anthony MD [address] [place] [address] Anesthesia Record Procedure Summary Procedure Name Responsible Anesthesiologist Anesthesia Start Time Anesthesia Stop Time COLONOSCOPY SCREEN Kvng Lawson MD 11/12/20 1226 11/12/20 1255 Events Date Time Event Comment 11/12/2020 1115 1226 An Start 1226 Pt In Room 1226 An Start Data 1227 Anes Timeout 1227 Timeout Anesthesia part icipated in timeout at the time documented in the record by nursing. 1228 PT Reassessment 1231 Induction 1232 Anes Ready 1233 Proc Start 1252 Proc Stop 1253 An Emergence 1255 an stop data 1255 Pt out of Room 1255 ANPTO2 1255 An Stop Meds Name Total lidocaine PF 2% 100 mg propofol 200mg/20mL injection 130 mg propofol 500 mg/50 mL injection 525.31 m g labetalol 5 mg/mL injection 10 mg hydrALAZINE 20 mg/mL injection 4 mg NS (0.9% NaCl) 0 mL * Agents Name Insp. N2O Exp. N2O O2 * Blood No blood administrations on file. Lines, Drains, and Airways Type Details Placement Removal Peripheral IV Date: 11/12/20; Time : 1017; Orientation: Right; Placed By: ZACHARY Anne ; Tolerance: Well 11/12/20 1017 by Nathalie Rivas RN 11/12/20 1407 by Keysha Cuenca RN documented in this encounter Social History [...] as of this encounter Progress Notes * Kvng Lawson MD - 11/17/2020 8:35 AM CST ANESTHESIA POSTOP EVALUATION NOTE Procedure: COLONOSCOPY SCREEN (N/A ) Yaya Vazquez is a 60 year old male No data found. Anesthesia Type: MAC Pre-op Diagnosis Codes: * Colon cancer screening [Z12.11] Mental Status: awake Neuro Status: No numbness, tingling or visual disturbances Respiratory Function: natural Cardiac Function: stable Postop Pain: adequate Postop Hydration: adequate Postop Nausea: none Assessment: no apparent anesthetic complications Patient Disposition: Release from Anesthesia Care COMPLICATIONS: No complications documented. OPERATOR * Kvng Lawson MD - 11/12/2020 7:35 AM CST ANESTHESIA PREOPERATIVE EVALUATION NOTE Procedure: COLONOSCOPY SCREEN (N/A ) Vitals: No data found. ANESTHESIA PRE-EVALUATION NOTE History of Present Illness: 60 y/o male screening colonoscopy H CAD S/P CABG 01/30 persistent angina, Htn, Morbid obesity, DM 2, Asthma, still smoking, Anemia Hbg 13.4 Physical Exam: Orientation X3 Airway/Mallampati Score: II Mouth Opening Distance: 3 fingerwidths Neck ROM: full TM Distance: > 3 FB Teeth: normal Heart: normal - S1 S2 Lungs: clear to ausculation bilaterally Abdomen Exam: obese Diagnostic Tests: ECG(s) reviewed: Yes Lab(s) reviewed: Yes. Other Findings: EKG old T inv inf leads, Q waves Old septal leads no change Echo Nl EF 50% ANESTHESIA PLAN ASA Score: 3 NPO Status: No liquids within 2 hours and No solids since midnight Anesthesia Plan: general Planned Induction: intravenous Planned Postop Destination: endo Anesthetic plan was discussed with: patient Anesthetic Plan discussion was: Consented The patient's procedural Anesthetic Plan was discussed with the FLAVOR MAKER. BMI, Height, Weight Tobacco History Estimated body mass index is 41.42 kg/m?? as calculated from the following: Height as of 08/05/20: 1.93 m (6' 4 ). Weight as of 08/05/20: 154.3 kg (340 lb 4 oz). Social History Tobacco Use Smoking Status Current Some Day Smoker ??? Types: Cigars ??? Start date: 1997 Smokeless Tobacco Never Used Tobacco Comment 3-4 times / month-2019 says 1x/month Alcohol History Drug History Social History Substance and Sexual Activity Alcohol Use Yes ??? Alcohol/week: 7.0 - 14.0 standard drinks ??? Types: 7 - 14 Standard drinks or equivalent per week ??? Frequency: 4 or more times a week ??? Drinks per session: 1 or 2 Comment: mainly shots Social History Substance and Sexual Activity Drug Use No Outpatient Medications: Inpatient Medications: No outpatient medications have been marked as taking for the 11/12/20 encounter (Hospital Encounter). No current facility-administered medications for this encounter. Allergies: Allergies Allergen Reactions ??? Lisinopril Angioedema ??? Pcn [Penicillins] Swelling eyes swelled shut 50 years ago ??? Penicillin V Rash Relevant Problems No relevant active problems Problem List: Patient Active Problem List Diagnosis Date Noted ??? Hyperlipidemia 08/05/2020 Priority: Not Prioritized ??? Morbid obesity with BMI of 40.0-44.9, adult 08/05/2020 Priority: Not Prioritized ??? Nocturia 08/05/2020 Priority: Not Prioritized ??? Weight gain 08/05/2020 Priority: Not Prioritized 40# past 6-8 months-covid ??? Asthma Priority: Not Prioritized ??? Other chest pain 09/04/2018 Priority: Not Prioritized ??? Coronary artery disease involving n[place] heart with angina pectoris 09/04/2018 Priority: Not Prioritized ??? S/P CABG x 3 01/24/2018 Priority: Not Prioritized ??? CAD (coronary artery disease) 01/23/2018 Priority: Not Prioritized ??? Essential hypertension 01/23/2018 Priority: Not Prioritized ??? Controlled type 2 diabetes mellitus without complication, without long-term current use of insulin 09/28/2011 Priority: Not Prioritized Medical History: Past Medical History: Diagnosis Date ??? Anemia 01/2018 ??? Asthma ??? Chest congestion 08/05/2020 ??? Confusional arousals 08/05/2020 ??? Controlled type 2 diabetes mellitus without complication, without long-term current use of insulin 09/28/2011 ??? Coronary artery disease involving n[place] heart with angina pectoris 09/04/2018 ??? Cough [...] artery bypass graft x 3 ??? Tonsillectomy Lab Results: Recent Labs Component Name 07/23/20 0649 CREATININEUR 270 Recent Labs Component Name 07/23/20 0649 TSH 2.62 No results found for requested labs within last 120 days. No results found for requested labs within last 120 days. OPERATOR documented in this encounter Miscellaneous Notes * Anesthesia Transfer of Care - Malvin Priya MalickReggie Asst - 11/12/2020 12:55 PM CST ANESTHESIA TRANSFER OF CARE NOTE Today's Date: 11/12/2020 Date of : 1960 Patient: Yaya Vazquez Procedure(s) with comments: COLONOSCOPY SCREEN - normal colon Surgeon(s): Primary: Jodi Vernon MD Fellow: Lisa Gagnon MD Preop Diagnosis: Pre-op Diagnois: * Colon cancer screening [Z12.11] Pre-op Meds (From admission, onward) Start Stop Status Route Frequency Ordered 11/12/20 1013 0.9% NaCl injection 3 mL -- Dispensed IK PRE-PROCEDURE MULTIPLE 11/12/20 1013 Post-op Diagnosis: * Colon cancer screening [Z12.11] . Allergies Allergen Reactions ??? Lisinopril Angioedema ??? Pcn [Penicillins] Swelling eyes swelled shut 50 years ago ??? Penicillin V Rash Vitals: Patient Vitals for the past 3 hrs: BP Pulse Resp SpO2 11/12/20 1209 (!) 181/108 77 20 97 % 11/12/20 1045 (!) 175/109 69 21 96 % 11/12/20 1024 (!) 185/111 74 24 95 % Lines, Drains, and Airways Type Details Placement Removal Peripheral IV Date: 11/12/20; Time: 101; Orientation: Right; Location: Hand; Placed By: ZACHARY Anne ; Gauge: 20 Gauge; Locals: None; Tolerance: Well 11/12/20 1017 by Nathalie Rivas RN Intraprocedure I/O Totals None Patient Transfer Location: PACU Transport Airway: supplemental O2 and spontaneous respirations Transport Monitoring: continuous pulse oximetry and heart rate Complications: None Handoff Given? Yes Checklist or [...] understanding of report from the receiving PACUteam. Reggie Cuevas OPERATOR documented in this encounter Plan of Treatment Upcoming Encounters Date Type Department Care Team (Late st Contact Info) Description 10/20/2024 8:00 AM DRAW OPERATOR Office Visit [facility] - Family Medicine [address] [facility] [address] [place] [phone] Kiana Cole MD [address] [place] [address] 11/28/2024 9:00 AM DRAW OPERATOR Office Visit [facility] - Neurology [address] [facility] [place] [phone] Aline Finch MD [address] [facility] [place] [place] [address] 02/10/2025 10:00 AM CDT Office Visit [facility] - Cardiology [address] [facility] [address] [place] [address] Curly Lay MD [address] [place] [address] documented as of this encounter Visit Diagnoses Not on filedocumented in this encounter Administered Medications Inactive Administered Medications - up to 3 most recent administrations Medication Order MAR Action Action Date Dose Rate Site 0.9% NaCl infusion Intravenous, CONTINUOUS PRN, Starting on Sun11/12/20 at 1226, Until Sun11/12/20 at 1255, Anesthesia Intra-op $ New Bag/Syringe 11/12/2020 12:26 PM DRAW OPERATOR hydrALAZINE (APRESOLINE) injection PRN, Starting on Sun11/12/20 at 1245, Until Sun11/12/20 at 1255, Anesthesia Intra-op $ Given 11/12/2020 12:45 PM DRAW OPERATOR 4 mg labetalol (NORMODYNE; TRANDATE) injection PRN, Starting on Sun11/12/20 at 1221, Until Sun11/12/20 at 1255, Anesthesia Intra-op $ Given 11/12/2020 12:31 PM DRAW OPERATOR 5 mg $ Given 11/12/2020 12:21 PM DRAW OPERATOR 5 mg lidocaine hcl (PF) (XYLOCAINE MPF) 2 % injection Infiltration, PRN, Starting on Sun11/12/20 at 1231, Until Sun11/12/20 at 1255, Anesthesia Intra-op $ Given 11/12/2020 12:31 PM DRAW OPERATOR 100 mg propofol (DIPRIVAN) infusion Intravenous, CONTINUOUS PRN, Starting on Sun11/12/20 at 1231, Until Sun11/12/20 at 1255, Anesthesia Intra-op Rate Change 11/12/2020 12:33 PM DRAW OPERATOR 175 mcg/kg/min 168.42 mL/hr $ New Bag/Syringe 11/12/2020 12:31 PM DRAW OPERATOR 150 mcg/kg/min 1 44.36 mL/hr propofol (DIPRIVAN) injection Intravenous, PRN, Starting on Sun11/12/20 at 1231, Until Sun11/12/20 at 1255, Anesthesia Intra-op $ Given 11/12/2020 12:33 PM DRAW OPERATOR 30 mg $ Given 11/12/2020 12:32 PM DRAW OPERATOR 50 mg $ Given 11/12/2020 12:31 PM DRAW OPERATOR 50 mg documented in this encounter Care Teams Cement Finisher Apprentice Relationship Specialty Start Date End Date Lisy Olmedo MD PCP - General 04/20/09 05/09/22 documented as of this encounter
--- OUTSIDE RECORDS SUMMARY | 2024-10-11 19:45 | XMS_ITS | Encounter Summary ---
Author Organization [facility] Health Address [address] [place] [address] Care Team Providers Care Machine Operator Farmworker Name Role Phone Lisy Olmedo MD Primary Care Provide r Encounter Details Date Type Department Care Team (Late st Contact Info) Description 07/23/2020 Orders Only [facility] Family and Community Medicine [address] [address] Lisy Olmedo MD [facility] [place] [address] Social History Tobacco Use Types [...] st Contact Info) Description 10/20/2024 8:00 AM ADJUNCT HISTORY INSTRUCTOR Office Visit [facility] - Family Medicine [address] [facility] [address] [place] [phone] Kiana Cole MD [address] [place], [place] [phone] 11/28/2024 9:00 AM ADJUNCT HISTORY INSTRUCTOR Office Visit [facility] - Neurology [address] [facility] [place] [address] Aline Fnich MD [address] [facility] [place] [address] 02/10/2025 10:00 AM CDT Office Visit [facility] - Cardiology [address] [address] Curly Lay MD [address] [address] documented as of this encounter Procedures Procedure Name Priority Date/Time Associated Diagnosis Comments HEPATITIS C AB W/RFLX TO HCV RNA QN PCR 07/23/2020 6:49 AM CDT RPR W REFLEX TO TITER+CONFIRM 07/23/2020 6:49 AM CDT HIV-1 HIV-2 ANTIBODY + HIV P24 AG PANEL 07/23/2020 6:49 AM CDT TSH REFLEX FREE T4 07/23/2020 6: 49 AM CDT MICROALB/CREAT RATIO URINE RANDOM PANEL 07/23/2020 6:49 AM CDT CHLAMYDIA + GC AMPLIFIED PROBE 07/23/2020 6:49 AM CDT LIPID PROFILE 07/23/2020 6:49 AM CDT documented in this encounter Results * RPR W REFLEX TO TITER+CONFIRM (07/23/2020 6:49 AM CDT) RPR NON-REACTI VE NON-REACT [facility] Comment: REPORT COMMENT: FASTING:YES Test Performed at: [employer] [facility] [place], [place] ??[phone] EH PURVIS DO,MPH 07/23/2020 6:49 AM CDT 07/23/2020 6:51 AM CDT Lisy Olmedo MD LAB - DIRECTOR OF MARKETING RY ORDERABLES [facility] [address] [place] [phone] * CHLAMYDIA + GC AMPLIFIED PROBE (07/23/2020 6:49 AM CDT) Pathologist [facility] Chlamydia trachomatis RNA NOT DETECTED NOT DETECTED [facility] GC RNA NOT DETECTED NOT DETECTED [facility] Please Note [facility] Comment: The analytical performance characteristics of this assay, when used to test SurePath(TM) specimens have been determined by [employer]. The modifications have not been cleared or approved by the FDA. This assay has been validated pursuant to the CLIA regulations and is used for clinical purposes. For additional information, please refer to https://education.H2i Technologies/faq/SZS760 (This link is being provided for information/ educational purposes only.) Test Performed at: [facility] [address] [place], [place] ??[phone] EH PURVIS DO,MPH 07/23/2020 6:49 AM CDT 07/23/2020 6:51 AM CDT Lisy Olmedo MD LAB - MICROBI OLOGY ORDERABLES Performing Organization Address [facility] Co de Phone Number [facility] [address] [place] [address] * TSH REFLEX FREE T4 (07/23/2020 6:49 AM CDT) TSH with Reflex FT4 2.62 0.40 - 4.50 mIU/L [facility] Comment: Test Performed at: [facility] [address] [place], [place] ??[phone] EH PURVIS DO,MPH 07/23/2020 6:49 AM CDT 07/23/2020 6:51 AM CDT Lisy Olmedo MD LAB - DIRECTOR OF MARKETING RY ORDERABLES Performing Organization Address [facility] de Phone Number [facility] [phone] [place] [address] * HEPATITIS C AB W/RFLX TO HCV RNA QN PCR (07/23/2020 6:49 AM CDT) Hepatitis C Antibody NON-REACTI VE NON-REACT [facility] Signal to Cut-Off 0.09 <1.00 [facility] Comment: HCV antibody was non-reactive. There is no laboratory evidence of HCV infection. In most cases, no further action is required. However, if recent HCV exposure is suspected, a test for HCV RNA (test code 75190) is suggested. For additional information please refer to http://education.[employer].Trendr/faq/HFK70v0 (This link is being provided for informational/ educational purposes only.) Test Performed at: [facility] [address] [place], [place] ??[phone] EH PURVIS DO,MPH 07/23/2020 6:49 AM CDT 07/23/2020 6:51 AM CDT Lisy Olmedo MD LAB - DIRECTOR OF MARKETING RY ORDERABLES Performing Organization Address [facility] Co de Phone Number [facility] [address] [place] [address] * HIV-1 HIV-2 ANTIBODY + HIV P24 AG PANEL (07/23/2020 6:49 AM CDT) Pathologist [facility] HIV Screen 4th Generation w Reflex NON-REACT [...] ?? For additional information please refer to http://education.[employer]/faq/YXU317 (This link is being provided for informational/ educational purposes only.) The performance of this assay has not been clinically validated in patients less than 2 years old. Test Performed at: [facility] [id number] [place] [address] ??[phone] EH PURVIS DO,MPH 07/23/2020 6:49 AM CDT 07/23/2020 6:51 AM CDT Lisy Olmedo MD LAB - DIRECTOR OF MARKETING RY ORDERABLES Performing Organization Address City/State/[facility] Co de Phone Number [facility] [address] [place] [address] * MICROALB/CREAT RATIO URINE RANDOM PANEL (07/23/2020 6:49 AM CDT) [facility] Creatinine Urine 270 20 - 320 mg/dL [...] within a diagnostic category. Test Performed at: [facility] [address] [place], [place] ??[phone] EH PURVIS DO,MPH 07/23/2020 6:49 AM CDT 07/23/2020 6:51 AM CDT Lisy Olmedo MD LAB - URINE C HEMISTRY ORDERABLES Performing Organization Address [facility] Phone Number [facility] [address] [place] [address] * (ABNORMAL) LIPID PROFILE (07/23/2020 6:49 AM CDT) Cholesterol 254(H) <200 mg/dL [facility] HDL Cholesterol 48 > OR = 40 mg/dL [facility] Triglycerides 179(H) <150 mg/dL [facility] LDL Calculated 173(H) mg/dL (calc) [facility] Comment: Reference range: <100 Desirable range <100 mg/dL for primary prevention; ?? <70 mg/dL for patients with CHD or diabetic patients with > or = 2 CHD risk factors. LDL-C is now calculated using the Mika-Najera calculation, which is a validated novel method providing better accuracy than the Friedewald equation in the estimation of LDL-C. Mika SS et al. RAFFI. 2013;310(19): 2174-8981 (http://education.myeasydocs.Trendr/faq/YUK874) CHOL/HDLC RATIO 5.3(H) <5.0 (calc) [facility] Non HDL Cholesterol 206(H) <130 mg/dL (calc) [facility] Comment: For patients with diabetes plus 1 major ASCVD risk factor, treating to a non-HDL-C goal of <100 mg/dL (LDL-C of <70 mg/dL) is considered a therapeutic option. Test Performed at: [facility] [address] [place], [place] ??[phone] EH PURVIS DO,MPH 07/23/2020 6:49 AM CDT 07/23/2020 6:51 AM CDT Lisy Olmedo MD LAB - DIRECTOR OF MARKETING RY ORDERABLES [facility] [address] [place] [address] documented in this encounter Visit Diagnoses Not on filedocumented in this encounter Care Teams Machine Operator Farmworker Relationship Specialty Start Date End Date Lisy Olmedo MD PCP - General 04/20/09 05/09/22 documented as of this encounter
--- OUTSIDE RECORDS SUMMARY | 2024-10-11 19:45 | XMS_ITS | Encounter Summary ---
Author Organization [facility] Health Address [address] [place] [address] Care Team Providers Care Front Edger Name Role Phone Lisy Olmedo MD Primary Care Provide r Reason for Visit * Reason Comments Sleep Problem not sure why he is h ere??? Neck Size 19 Encounter Details Date Type Department Care Team (Late st Contact Info) Description 08/05/2020 10:20 AM CDT Office Visit [facility] [address] [place] [address] Shameka Moreno, APNP-SENIOR PL SQL DEVELOPER [address] DIV OF PULMONARY/[place] [address] Snoring (Primary Dx); Essential hypertension; Coronary artery disease involving coronary bypass graft of [place] heart with unstable angina pectoris (HCC); Uncomplicated asthma, unspecified asthma severity, unspecified whether persistent (HCC); Inadequate sleep hygiene; Nocturia; Daytime sleepiness; Morbid obesity (HCC) Social History Tobacco Use Types Packs/Day [...] CD T documented as of this encounter Last Filed Vital Signs Vital Sign Reading Time Taken Comments Blood Pressure 173/99 08/05/2020 10:37 AM CDT Pulse 80 08/05/2020 10:37 AM CDT Temperature - - Respiratory Rate - - Oxygen Saturation - - Inhaled Oxygen Concentration - - Weight 154.3 kg (340 lb 4 oz) 08/05/2020 10:37 A M CDT Height 193 cm (6' 4 ) 08/05/2020 10:37 AM CDT Body Mass Index 41.42 08/05/2020 10:37 AM CDT documented in this encounter Functional [...] as of this encounter Progress Notes * Shameka Moreno APNP-CNP - 08/05/2020 11:08 AM CDT Images from the original note were not included. Yaya Vazquez 1960 08/05/2020 Patient location: in clinic [facility] [address] [place] [address] Chief Complaint Patient presents with ??? Sleep Problem not sure why he is here??? Neck Size 19 HPI: Patient has never had a previous sleep evaluation. Does not know why he is here. Nocturia every 2-3 hours, wakes snoring, having sleep choking episodes as reported by PCP. Notes he is from job next Sunday, losing insurance and not sure if he is entering insurance market. Has DOT card and told at that he needs sleep study-given 6 month card only. Symptoms have been going on for ??. Minimizing symptoms. 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 card-due for physical in 6 months-will be renewed 01/13/2021 pending sleep study Bedtime Pretty much in bed all the time-that is where tv is Workdays 9-10 PM Turns back on tv Weekends/Off days 9-10 PM Fall asleep minutes/hours 30 minutes Number Times Awake/ Reason Total 'couple', Bathroom 2x, Breathing problems 0x Back to Sleep Depends 5-30 minutes unless attention grabbed by tv Awake Time/Alarm 4 AM Alarm No Rise Time Workdays 830 AM Weekends/off days 830-9 AM Naps Yes couple times a week for couple hours SLEEP REVIEW OF SYSTEMS: Sleep hygiene: Pertinent positives: cool room, TV on all night, cell phone within 2 hours of bedtime, regular bed time within 1 hour, regular wake time within 1 hour, no exercise 3-4 hours before bedtime, no dinner3-4 hours before bedtime, no caffeine at least 3-4 hours before bed and no worrying in bed Pertinent negatives: dark room, quiet room, TV off, computer/laptop/tablet within 2 hours bedtime, use of bed only for sleep/sex, no reading or screens and no fluids 3-4 hours before bed Sleep position: Lateral, if supine cannot sleep-not comfortable Feeling upon awakening: not refreshed and sleepy/tired Time most tired: evening Snoring intensity: [place] when outside room, door open Witnessed apneas: No Snort arousals: Yes Mouth breather: Yes Nasal congestion: Yes sometimes Night sweats: No Use of fan at night: Yes Weight gain: Yes - 40lbs at least in the past 6-8 months Reported collar size: 18.5 in. Parasomnias: Pertinent positives: confusional arousals Systemic ROS: Elements of the following systems were reviewed: cardiac, pulmonary, gastrointestinal, genito-urinary, neurological, eye, ear, nose, throat, musculoskeletal and endocrine Pertinent positives: CABG triple vessel cough syncope 2018 nasal congestion nocturia: frequency 2x/night wears glasses/contacts chest congestion h/o asthma All other systems unremarkable. Restless legs/limbs: no Periodic limb movements: No Neuropathic pain: No PAST MEDICAL HISTORY: Past Medical History: Diagnosis Date ??? Anemia 01/2018 ??? Asthma ??? Chest congestion 08/05/2020 ??? Confusional arousals 08/05/2020 ??? Controlled type 2 diabetes mellitus without complication, without long-term current use of insulin 09/28/2011 ??? Coronary artery disease involving [place] heart with angina pectoris 09/04/2018 ??? Cough [...] months-covid ??? Wound of sternal region 02/23/2018 PSYCHIATRIC HISTORY: Patient reports: no psychiatric history Patient denies history of: anxiety, panic disorder, attention-deficit hyperactivity disorder (ADHD), bipolar disorder, dementia, depression, obsessive/compulsive disorder, schizophrenia and suicide attempt PAST SURGICAL HISTORY: Past Surgical History: Procedure Laterality Date ??? Coronary Artery Bypass Graft N/A 01/24/2018 N/A; Coronary artery bypass graft x 3 ??? Tonsillectomy Denies history of: bariatric (obesity) surgery, cleft palate repair, mouth or facial surgery, and nasal trauma or surgery ALLERGIES: Allergies Allergen Reactions ??? Lisinopril Angioedema ??? Pcn [Penicillins] Swelling eyes swelled shut 50 years ago ??? Penicillin V Rash MEDICATIONS: Current Outpatient Medications: ??? albuterol HFA (PROVENTIL;VENTOLIN;PROAIR) 108 (90 Base) MCG/ACT inhaler, Inhale 2 puffs by mouth every 4 hours as needed for Wheezing, Disp: 1 Inhaler, Rfl: 5 ??? amLODIPine (NORVASC) 10 MG tablet, Take 1 tablet by mouth at bedtime, Disp: 30 tablet, Rfl: 5 ??? Aspirin 81 MG, Take 81 mg by mouth once daily, Disp: , Rfl: ??? atorvastatin (LIPITOR) 80 MG tablet, Take 1 tablet by mouth at bedtime, Disp: 30 tablet, Rfl: 5 ??? Blood Glucose Monitoring Suppl (ONE TOUCH ULTRA MINI) W/DEVICE KIT, Check blood sugars twice daily, Disp: 1 kit, Rfl: 0 ??? blood glucose test strip, Use 1 strip 2 times daily, Disp: 100 strip, Rfl: 11 ??? carvedilol (COREG) 25 MG tablet, Take 1 tablet by mouth 2 times daily with morning and evening meal, Disp: 60 tablet, Rfl: 5 ??? furosemide (LASIX) 40 MG tablet, Take 1 tablet by mouth once daily, Disp: 30 tablet, Rfl: 5 ??? glipiZIDE CR 24hr (GLIPIZIDE XL) 5 MG tablet, Take 1 tablet by mouth once daily, Disp: 30 tablet, Rfl: 5 ??? losartan (COZAAR) 100 MG tablet, Take 1 tablet by mouth once daily, Disp: 30 tablet, Rfl: 5 ??? metFORMIN ER 24hr (GLUCOPHAGE XR) 500 MG tablet, Take 4 tablets by mouth daily with dinner, Disp: 120 tablet, Rfl: 5 ??? nitroGLYCERIN (NITROSTAT) 0.4 MG tablet, Dissolve 1 tablet under the tongue every 5 minutes as needed for Angina, Disp: 20 tablet, Rfl: 1 ??? One Touch Delica Lancets, Use 2 times daily Check blood sugars twice daily., Disp: 100 Each, Rfl: 11 ??? sildenafil (REVATIO) 20 MG tablet, Take 2-5 tablets by mouth 5 times daily as needed, Disp: 30 tablet, Rfl: 5 IMMUNIZATIONS: Immunization History Administered Date(s) Administered ??? FLU VACCINE QUAD IIV4 SPLIT PF IM 10/05/2017 ??? INFLUENZA 09/03/2018, 06/29/2019 ??? PNEUMOCOCCAL PPSV23 02/29/2012, 11/05/2018 ??? TD (ADULT), 5 LF TETANUS TOXOID, ADSORBED, PF 10/15/2007 FAMILY HISTORY: Family History Problem Relation Name Age of Onset ? ? Hypertension Father <65 ? ? CAD (Coronary Artery Disease) Father <65 ??? Cancer - Ovarian Mother 60s ??? None Known Sister ??? 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 Marital status: Legally Spouse name: Not on file ??? Number of children: 1 ??? Years of education: 16 ??? Highest education level: Bachelor's degree (e.g., BA, AB, BS) Occupational History ??? 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 Financial resource strain: Not hard at all ??? Food insecurity Worry: Never true Inability: Never true ??? Transportation needs Medical: No Non-medical: No Tobacco Use ??? Smoking status: Current Some Day Smoker Types: Cigars Start date: 1997 ??? Smokeless tobacco: Never Used ??? Tobacco comment: 3-4 times / month-2019 says 1x/month Substance and Sexual Activity ??? Alcohol use: Yes Alcohol/week: 7.0 - 14.0 standard drinks Types: 7 - 14 Standard drinks or equivalent per week Frequency: 4 or more times a week Drinks per session: 1 or 2 Comment: mainly shots ??? Drug use: No ??? Sexual activity: Not Currently Partners: Female Lifestyle ??? Physical activity Days per week: Not on file Minutes per session: Not on file ??? Stress: Not on file Relationships ??? Social connections Talks on phone: Not on file Gets together: Not on file Attends worship service: Not on file Active member of club or organization: Not on file Attends meetings of clubs or organizations: Not on file Relationship status: Not on file ??? Intimate partner violence Fear of current or ex partner: Not on file Emotionally abused: Not on file Physically abused: Not on file Forced sexual activity: Not on file Other Topics Concern ??? Not on file Social History Narrative Lives in apartment alone Pets none Hobby watch tv, golf Coffee: per Cola: per Tea: per Energy drinks: per Exercise Schedule: No exercise PHYSICAL EXAMINATION: Visit Vitals Vitals: 08/05/20 1037 BP: 173/99 Pulse: 80 Weight: (!) 340 lb 4 oz (154.3 kg) Height: 6' 4 (1.93 m) Body mass index is 41.42 kg/m??. General Appearance: alert, well appearing, and in no distress, oriented to person, place, and time and morbidly obese Face: no creases , no pressure sores and no redness Chin: orthognathia Neck: thick neck Eyes: normal Ear: normal external and irritated canal Nasal: nasal congestion and nasal drainage Oropharynx: Mallampati 4 Breath Sounds: Vesicular, no adventitious sounds, diminished r/t body habitus Respiratory: normal effort Cardiac: RRR Clubbing: No Cyanosis No Lower extremity edema: trace Screening neurologic exam: Cranial nerves intact Motor: strength 5/5 all extremities, normal bulk/tone and coordination and gait normal: Yes REVIEW OF DATA: Component Latest Ref Rng & Units 07/23/2020 05/17/2020 12/24/2019 WBC 3.8 - 10.8 Thousand/uL 5.6 RBC 4.20 - 5.80 Million/uL 4.56 Hemoglobin 13.2 - 17.1 g/dL 13.4 Hematocrit 38.5 - 50.0 % 40.1 MCV 80.0 - 100.0 fL 87.9 MCH 27.0 - 33.0 pg 29.4 MCHC 32.0 - 36.0 g/dL 33.4 RDW 11.0 - 15.0 % 13.6 Platelet Count 140 - 400 Thousand/uL 253 MPV 7.5 - 12.5 fL 10.4 Neutrophil Absolute 1500 - 7800 cells/uL 3366 Lymphocytes Absolute 850 - 3900 cells/uL 1506 Absolute Monocytes 200 - 950 cells/uL 594 Eosinophils Absolute 15 - 500 cells/uL 123 Basophils Absolute 0 - 200 cells/uL 11 Granulocytes % % 60.1 Lymphocytes % % 26.9 Monocytes % % 10.6 Eosinophils % % 2.2 Basophils % % 0.2 Glucose 65 - 99 mg/dL 187 (H) BUN 7 - 25 mg/dL 11 Creatinine 0.70 - 1.25 mg/dL 0.97 eGFR by MDRD > OR = 60 mL/min/1.73m2 84 eGFR by MDRD > OR = 60 mL/min/1.73m2 97 BUN/Creatinine Ratio 6 - 22 (calc) NOT APPLICABLE Sodium 135 - 146 mmol/L 136 Potassium 3.5 - 5.3 mmol/L 4.0 Chloride 98 - 110 mmol/L 101 CO2 20 - 32 mmol/L 29 Calcium 8.6 - 10.3 mg/dL 8.6 Protein Total 6.1 - 8.1 g/dL 7.3 Albumin 3.6 - 5.1 g/dL 3.9 Globulin Total 1.9 - 3.7 g/dL (calc) 3.4 Albumin/Globulin Ratio 1.0 - 2.5 (calc) 1.1 Bilirubin Total 0.2 - 1.2 mg/dL 0.5 Alkaline Phosphatase 35 - 144 U/L 71 AST 10 - 35 U/L 14 ALT 9 - 46 U/L 14 Cholesterol <200 mg/dL 254 (H) HDL > OR = 40 mg/dL 48 Triglycerides <150 mg/dL 179 (H) LDL Calculated mg/dL (calc) 173 (H) CHOL/HDLC RATIO <5.0 (calc) 5.3 (H) Non HDL Cholesterol <130 mg/dL (calc) 206 (H) Creatinine Urine 20 - 320 mg/dL 270 Microalbumin Urine mg/dL 6.0 Microalbumin/Creatinine Ratio <30 mcg/mg creat 22 Hepatitis C Antibody NON-REACTIVE NON-REACTIVE Signal to Cut-Off <1.00 0.09 Hemoglobin A1c POCT 5.2 HIV Screen 4th Generation w Reflex NON-REACTIVE NON-REACTIVE TSH with Reflex FT4 0.40 - 4.50 mIU/L 2.62 RPR NON-REACTIVE NON-REACTIVE Component Latest Ref Rng & Units 01/24/2018 7:17 PM pH Arterial 7.35 - 7.45 7.40 pCO2 Arterial 35 - 45 mmHg 40 pO2 Arterial 71 - 95 mmHg 102 (H) HCO3 Arterial 22.0 - 26.0 mmol/L 24.6 TCO2 Arterial 25.0 - 29.0 mmol/L 25.8 BE Arterial -2.0 - 2.0 mmol/L -0.1 Hemoglobin Arterial 13.5 - 17.5 g/dL 8.8 (L) Oxyhemoglobin Arterial 95.0 - 100.0 % 95.7 Carboxyhemoglobin 0.0 - 3.0 % 0.3 Methemoglobin 0.0 - 2.0 % 0.3 FI O2 Arterial % 40.0 CT ANGIO AORTIC ROOT 01/2019 FINDINGS: Vascular:?? The ascending aorta measures 30.2 cm at the annulus, 4.2 cm at the sinus of Valsalva, 3.7 cm at thesinotubular junction, and 4.1 cm TV x 4.3 cm AP at the level of the main pulmonary artery. The mainpulmonary artery measures 3.2 cm TV. These measurements [...] pericardial effusion is present. No mediastinal, hilar, oraxillary lymphadenopathy is seen. Few calcified subcarinal and [...] Ectatic ascending aorta with vascular measurements as above.?? 2. Postoperative appearance from median sternotomy. EKG 2018 Myocardial SPECT 08/2018 No fixed or reversible perfusion defects are demonstrated. Left ventricular ejection fraction is 49%. There is mild global hypokinesis. Left ventricular chamber is mildly dilated at stress and at rest. ECHO 08/2018 Left ventricle: Size was normal. Systolic [...] Pericardium: The pericardium was normal in appearance. ASSESSMENT: Snoring-probable MONTY Essential HTN CAD Asthma Inadequate sleep hygiene Morbid obesity BMI > 40 Nocturia Daytime sleepiness Confusional arousals PLAN: Full night polysomnograpy: Diagnostic HST Complete PFT with bronchodilator Discussed the patient's risk for MONTY based on history and physical findings as well as the complications of MONTY. Explained the procedure for the sleep study including the monitoring. Healthy diet and exercise Good sleep hygiene B complex vitamin b/o alcohol, metformin, obesity RTC: Post PSG Visit lasted for 50 minutes. More than 50% of visit was direct [id number], including counseling and coordination of care. Shameka Moreno, Ph.D.c, D.N.P, A.N.P.-B.C. Adult Nurse Practitioner malted milk masher Director, [facility] These notes have been electronically signed by Shameka Moreno APN as the Authorizing and/or the Encounter Provider in the [facility]. 08/05/2020 documented in this encounter Plan of Treatment Upcoming Encounters Date Type Department Care Team (Late st Contact Info) Description 10/20/2024 8:00 AM BROADCAST PRODUCER Office Visit [facility] - Family Medicine [address] [phone] Kiana Cole MD [address] [place] [address] 11/28/2024 9:00 AM BROADCAST PRODUCER Office Visit [facility] - Neurology [address] [facility] [place] [address] Aline Finch MD [address] [facility] [place] [address] 02/10/2025 10:00 AM CDT Office Visit [facility] - Cardiology [address] [facility] [address] [place] [phone] Curly Lay MD [id number] [place] [address] documented as of this encounter Visit Diagnoses Diagnosis Snoring- Primary Other dyspnea and respiratory abnormality Essential hypertension Coronary artery disease involving coronary bypass graft of [place] heart with unstable angina pectoris (HCC) Uncomplicated asthma, unspecified asthma severity, unspecified whether persistent (HCC) Inadequate sleep hygiene Other specific disorder of sleep of nonorganic origin Nocturia Daytime sleepiness Morbid obesity (HCC) Morbid obesity documented in this encounter Care Teams Front Edger Relationship Specialty Start Date End Date Lisy Olmedo MD PCP - General 04/20/09 05/09/22 documented as of this encounter
--- OUTSIDE RECORDS SUMMARY | 2024-10-11 19:45 | XMS_ITS | Encounter Summary ---
Author Organization [facility] Health Address [address] [place] [address] Care Team Providers Care Senior Foreman Name Role Phone Lisy Olmedo MD Primary Care Provide r Reason for Visit * Radiology Services (Routine) - Closed Specialty Diagnoses / Procedures Referred By Contac t Referred To Contact CT Scan Diagnoses Coronary artery disease involving coronary bypass graft of choctaw heart with unstable angina pectoris (HCC) Essential hypertension Coronary artery disease involving choctaw coronary artery of choctaw heart with angina pectoris (HCC) Type 2 diabetes mellitus with other circulatory complication, without long-term current use of insulin (HCC) S/P CABG x 3 Hypertension, unspecified type Aortic dilatation (HCC) Procedures CT ANGIO AORTIC ROOT CT ANGIO AORTA FOR DISSECTION Nehemias Dennis MD [address] [place] [address] [facility] [address] [place] [address] Referral ID Status Reason Start Date Expiration Date Visits Re quested Visits Authorized [id number] Closed 01/16/2019 07/15/2019 1 1 Encounter Details Date Type Department Care Team (Latest Contact Info) Description 02/11/2019 4:00 PM CDT - 02/11/2019 11:59 PM CDT Hospital Encounter [facility] CAT SCAN [address] [place] [address] Nehemias Dennis MD [address] [place] [address] Discharge Disposition: Home or Self Care Social [...] Date albuterol HFA (PROVENTIL;VENTOLIN;PRO AIR) 108 (90 BASE) MCG/ACT inhalerIndications:Mild intermittent asthma with acute exacerbation (HCC) Inhale 2 puffs by mouth every 4 hours as needed for Wheezing 1 Inhaler 1 11/05/2018 11/17/2019 amLODIPine (NORVASC) 10 MG tabletIndications:Essen tial hypertension Take 1 tablet by mouth at bedtime 90 tablet 3 11/05/2018 11/17/2019 Aspirin 81 MG Take 1 (one) tablet by mouth once daily 01/23/2024 atorvastatin (LIPITOR) 80 MG tabletIndications:Coron susan artery disease involving coronary bypass graft of choctaw heart with unstable angina pectoris (HCC),Hypertension, unspecified type,S/P CABG x 3,Essential hypertension,Coronary artery disease involving choctaw coronary artery of choctaw heart with angina pectoris ([facility]),Type 2 diabetes mellitus with other circulatory complication, without long-term current use of insulin ([facility]) Take 1 tablet by mouth at bedtime 30 tablet 5 01/16/2019 11/17/2019 Blood Glucose Monitoring Suppl (ONE TOUCH ULTRA MINI) W/DEVICE KIT Check blood sugars twice daily 1 kit 03/19/2018 02/15/2024 blood glucose test strip Use 1 strip 2 times daily 100 strip 11 03/19/2018 02/15/2024 carvedilol (COREG) 25 MG tabletIndications:Coron susan artery disease involving coronary bypass graft of choctaw heart with unstable angina pectoris (HCC),Essential hypertension,Coronary artery disease involving choctaw coronary artery of choctaw heart with angina pectoris (HCC),Type 2 diabetes mellitus with other circulatory complication, without long-term current use of insulin ([facility]),S/P CABG x 3,Hypertension, unspecified type Take 1 tablet by mouth 2 times daily with morning and evening meal 60 tablet 5 01/16/2019 11/17/2019 furosemide (LASIX) 40 MG tabletIndications:Coron susan artery disease involving coronary bypass graft of choctaw heart with unstable angina pectoris ([facility]),Essential hypertension,Coronary artery disease involving choctaw coronary artery of choctaw heart with angina pectoris (HCC),Type 2 diabetes mellitus with other circulatory complication, without long-term current use of insulin ([facility]),S/P CABG x 3,Hypertension, unspecified type Take 1 tablet by mouth once daily 30 tablet 5 01/16/2019 11/17/2019 glipiZIDE CR 24hr (GLIPIZIDE XL) 5 MG tabletIndications:Contr olled type 2 diabetes mellitus without complication, without long-term current use of insulin ([facility]) Take 1 tablet by mouth once daily 30 tablet 5 01/23/2019 11/17/2019 losartan (COZAAR) 100 MG tabletIndications:[place]on susan artery disease involving coronary bypass graft of choctaw heart with unstable angina pectoris ([facility]),Essential hypertension,Coronary artery disease involving choctaw coronary artery of choctaw heart with angina pectoris (HCC),Type 2 diabetes mellitus with other circulatory complication, without long-term current use of insulin ([facility]),S/P CABG x 3,Hypertension, unspecified type Take 1 tablet by mouth once daily 30 tablet 5 01/16/2019 11/17/2019 metFORMIN (GLUCOPHAGE) 1000 MG tablet Take 1 tablet by mouth 2 times daily with morning and evening meal 180 tablet 07/26/2018 04/12/2019 nitroGLYCERIN (NITROSTAT) 0.4 MG tablet Dissolve 1 tablet under the tongue every 5 minutes as needed for Angina 20 tablet 1 09/18/2018 01/23/2024 One Touch Delica Lancets Use 2 times daily Check blood sugars twice daily. 100 Each 11 03/19/2018 02/15/2024 sildenafil (REVATIO) 20 MG tablet Take 2-5 tablets by mouth 5 times daily as needed 30 tablet 2 12/09/2018 03/03/2019 documented as of this encounter Plan of Treatment Upcoming Encounters Date Type Department Care Team (Late st Contact Info) Description 10/20/2024 8:00 AM PATIENT FINANCIAL SERVICES COORDINATOR Office Visit [facility] - Family Medicine [address] [phone] Kiana Cole MD [address] [place], [place] [phone] 11/28/2024 9:00 AM PATIENT FINANCIAL SERVICES COORDINATOR Office Visit [facility] - Neurology [address] [facility], [place] [address] Aline Finch MD [address] [facility] [place] [address] 02/10/2025 10:00 AM CDT Office Visit [facility] - Cardiology [address] [address] Curly Lay MD [address] [phone] documented as of this encounter Procedures Procedure Name Priority Date/Time Associated Diagnosis Comments CARDIAC EKG ORDER 05/31/2020 9:[address] ANGIO AORTIC ROOT Routine 02/11/2019 5:56 PM CDT Coronary artery disease involving coronary bypass graft of choctaw heart with unstable angina pectoris (HCC) Essential hypertension Coronary artery disease involving choctaw coronary artery of choctaw heart with angina pectoris (HCC) Type 2 diabetes mellitus with other circulatory complication, without long-term current use of insulin (HCC) S/P CABG x 3 Hypertension, unspecified type Aortic dilatation (HCC) CREATININE BLOOD - POCT (IP) [facility] Routine 02/11/2019 4:58 PM CDT Coronary artery disease involving coronary bypass graft of choctaw heart with unstable angina pectoris (HCC) documented in this encounter Results * CARDIAC EKG ORDER (05/31/2020 9:27 PM CDT) Narrative 05/31/2020 9:27 PM CDT Ordered by an unspecified provider. Scanned Document CARDIAC SERVICES ORD ERABLES * CT ANGIO AORTIC ROOT (02/11/2019 5:56 PM CDT) Anatomical Region Laterality Modality Chest Computed Tomogra phy 02/11/2019 7:06 PM CDT Impressions 02/12/2019 4:18 PM CDT IMPRESSION: 1. Ectatic ascending aorta with vascular measurements as above. 2. Postoperative appearance from median sternotomy. Dictated by Yeyo Birmingham MD (consultant luxury and auto. vice president jaguar [employer] (ex )). I, Dr. Lobito URIAS M.D. have personally [...] median sternotomy. Dictated by Yeyo Birmingham MD (consultant luxury and auto. vice president jaguar brand (ex )). I, Dr. Lobito URIAS M.D. have personally reviewed and interpretedthis examination/study. This report was electronically signed by Lobito URIAS M.D. on 02/12/2019 4:18 PM . Nehemias Dennis MD CT ORDERABLES * CREATININE BLOOD - POCT (IP) [facility] (02/11/2019 4:58 PM CDT) Creatinine POCT 1.20 0.3 - 1.3 mg/dL [facility] eGFR POCT 60 60 ml/min [facility] Blood BLOOD SPECIMEN / Unknown 02/11/2019 4:58 PM CDT Nehemias Dennis MD LAB - POINT OF CAR E ORDERABLES [facility] [address] [phone] documented in this encounter Visit Diagnoses Diagnosis Coronary artery disease involving coronary bypass graft of choctaw heart with unstable angina pectoris (HCC) Essential hypertension Coronary artery disease involving choctaw coronary artery of choctaw heart with angina pectoris (HCC) Type 2 diabetes mellitus with other circulatory complication, without long-term current use of insulin (HCC) S/P CABG x 3 Postsurgical aortocoronary bypass status Hypertension, unspecified type Aortic dilatation (HCC) Aortic ectasia, unspecified site documented in this encounter Administered Medications Inactive Administered Medications - up to 3 most recent administrations Medication Order MAR Action Action Date Dose Rate Site iopamidol (ISOVUE 370) 76 % contrast Intravenous, CONTRAST ONCE, Starting on Sun02/11/19 at 1658, Until Sun02/12/19 at 0123 $ Given - Contrast 02/11/2019 5:38 PM CDT 75 mL documented in this encounter Care Teams Senior Foreman Relationship Specialty Start Date End Date Lisy Olmedo MD PCP - General 04/20/09 05/09/22 documented as of this encounter
--- OUTSIDE RECORDS SUMMARY | 2024-10-11 19:45 | XMS_ITS | Encounter Summary ---
Author Organization [facility] Health Address [address] [place] [address] Care Team Providers Care Telecommunications Manager Name Role Phone Lisy Olmedo MD Primary Care Provide r Encounter Details Date Type Department Care Team (Latest Contact Info) Description 10/05/2020 Travel Social History Tobacco Use Types Packs/Day [...] st Contact Info) Description 10/20/2024 8:00 AM CASING MIXER Office Visit [facility] Medical Group - Family Medicine [address] [place] [address] Kiana Cole MD [address] [place] [address] 11/28/2024 9:00 AM CASING MIXER Office Visit [facility] - Neurology [address] [facility], [place] [address] Aline Finch MD [address] [facility] [place] [address] 02/10/2025 10:00 AM CDT Office Visit [facility] - Cardiology [address] [facility] [address] [place] [address] Curly Lay MD [address] [facility] [address] [place] [address] documented as of this encounter Visit Diagnoses Not on filedocumented in this encounter Care Teams Telecommunications Manager Relationship Specialty Start Date End Date Lisy Olmedo MD PCP - General 04/20/09 05/09/22 documented as of this encounter
--- OUTSIDE RECORDS SUMMARY | 2024-10-11 19:45 | XMS_ITS | Encounter Summary ---
Author Organization [facility] Health Address [address] [place] [address] Care Team Providers Care Patient Insurance Clerk Name Role Phone Lisy Olmedo MD Primary Care Provide r Reason for Visit * Reason Comments Cough Congestion Encounter Details Date Type Department Care Team (Late st Contact Info) Description 12/23/2019 2:40 PM CDT Office Visit [facility] [address] [facility] [address] [place] [address] Nivia Peñaloza, CORPORATE PLANNING MANAGER-OLIVE GRADER [address] [facility] [address] [place] [phone] Essential hypertension (Primary Dx); Nocturia; Fatigue, unspecified type; SOB (shortness of breath) Social History Tobacco Use Types Packs/Day Years [...] Sign Reading Time Taken Comments Blood Pressure 164/100 12/23/2019 2:26 PM CDT Pulse 69 12/23/2019 2:26 PM CDT Temperature 37.2 ??C (98.9 ??F) 12/23/2019 2:26 PM CD T Respiratory Rate - - Oxygen Saturation 94% 12/23/2019 2:26 PM CDT Inhaled Oxygen Concentration - - Weight 144.1 kg (317 lb 9.6 oz) 12/23/2019 2:26 PM CDT Height - - Body Mass Index 38.66 11/17/2019 4:18 PM GROUND WORKER documented in this encounter Functional Status [...] as of this encounter Progress Notes * Nivia Peñaloza APRN-OLIVE GRADER - 12/23/2019 3:34 PM CDT Subjective: History was provided by the patient. Yaya Vazquez is a 59 year old male who presents for evaluation of symptoms of a URI. Symptoms include cough Wheezing and SOB Using albuterol more than usual Using few time per hour SOB with minimal exertion Thick yellow phlegm No tooth pain or facial Onset of symptoms was 2 weeks ago, gradually worsening since that time. c/o 2 weeks congestion, productive cough Color: moderate yellow. He is drinking plenty of fluids.. Evaluation to date: none. Treatment to date: Robitussin No recent travel No ill contacts Follows with cardiology apt 01/08/2020 No cp No palpitations No recent medication changes Hypertension - Taking medications as prescribed? Yes - On antiplatelet therapy? Yes - Medication side effects? no medication side effects noted - Home BPs: does not check blood pressure at home or other places - Diet: limits fats and cholestrol intake, limits salt intake trys to make good choices denies any new swelling - Exercise routine: minimal exercise - MONTY symptoms? Reports Nocturia every 2-3 hours Wakes self snoring and having sleep choking episodes Neck circumference is 19 STOP BANG 04/21 high risk for MONTY - Denies lightheadedness, dizziness, loss of consciousness, new lower extremity edema, palpitations, no chest pain. Did not take lasix today and states this is the reason for elevated numbers BP Readings from Last 3 Encounters: 12/23/19 (!) 164/100 11/17/19 154/94 01/23/19 120/70 Recent Labs Component Name 09/06/18 0318 09/04/18 0956 03/22/18 1147 01/29/18 0620 01/28/18 0655 01/27/18 0654 01/25/18 0026 01/24/18 1917 01/24/18 1706 11/09/17 1521 11/19/15 0923 NA - - - 136 136 138 - 137 - - - 138 140 POTASSIUM 3.5 4.1 4.2 3.9 3.3* 3.4* - 4.6* - - - - - CL - - - 97* 97* 100 - 104 - - - 100 106 HCO3 - - - - - - - 24.3 24.6 23.5 - - - CO2 28 28 25 26 30* 26 - 21* - - - 30 26 CREATININE 0.97 0.88 0.90 1.0 0.9 0.9 - 0.9 - - - 0.95 0.93 GLU - - - - - - - - - - - 86 105* MICROALB - - - - - - - - - - - - 25 - = values in this interval not displayed. Past Medical History: Diagnosis Date ??? Asthma ??? CAD (coronary artery disease) ??? DM (diabetes mellitus) ??? HTN (hypertension) ??? Superficial postoperative wound infection 02/23/2018 sternum ??? Wound of sternal region 02/23/2018 Current Outpatient Medications Medication Sig Dispense Refill [...] every 5 minutes as needed for Angina (Patient not taking: Reported on 12/23/2019) 20 tablet 1 ??? One Touch Delica Lancets Use 2 times daily Check blood sugars twice daily. 100 Each 11 ??? sildenafil (REVATIO) 20 MG tablet Take 2-5 tablets by mouth 5 times daily as needed 30 tablet 5 No current facility-administered medications for this visit. Allergies Allergen Reactions ??? Lisinopril Angioedema ??? Pcn [Penicillins] Swelling eyes swelled shut 50 years ago ??? Penicillin V Rash Social History Socioeconomic History ??? Marital status: Legally Spouse name: Not on file ??? Number of children: Not on file ??? Years of education: Not on file ??? Highest education level: Not on file Occupational History ??? Not on file Social Needs ??? Financial resource strain: Not on file ??? Food insecurity Worry: Not on file Inability: Not on file ??? Transportation needs Medical: Not on file Non-medical: Not on file Tobacco Use ??? Smoking status: Former Smoker Types: Cigars ??? Smokeless tobacco: Never Used ??? Tobacco comment: 3-4 times / month Substance and Sexual Activity ??? Alcohol use: Yes Alcohol/week: 7.0 - 14.0 standard drinks Types: 7 - 14 Standard drinks or equivalent per week ??? Drug use: No ??? Sexual activity: Yes Lifestyle ??? Physical activity Days per week: Not on file Minutes per session: Not on file ??? Stress: Not on file Relationships ??? Social connections Talks on phone: Not on file Gets together: Not on file Attends taoist service: Not on file Active member of [...] ??? Not on file Social History Narrative ??? Not on file Review of Systems Constitutional: Positive for malaise/fatigue. HENT: Positive for congestion and sore throat. Negative for ear discharge, ear pain and sinus pain. Eyes: Negative. Respiratory: Positive for cough, sputum production, shortness of breath and wheezing. Cardiovascular: Negative. Gastrointestinal: Negative. Genitourinary: Negative. Musculoskeletal: Negative. Skin: Negative. Neurological: Negative. Negative for headaches. Psychiatric/Behavioral: Negative. Objective: BP 164/100 (BP SITE: LEFT ARM, BP POSITION: SITTING, BP CUFF SIZE: 13) Pulse 69 Temp 98.9 ??F (37.2??C) (Tympanic) Wt 317 lb 9.6 oz (144.1 kg) SpO2 94% BMI 38.66 kg/m2 General: alert, cooperative, no distress Head: NCAT w/o lesions or tenderness Eyes: sclera and conjunctiva clear, EOMI and PERRLA, lids normal Ears: normal TM's and external ear canals AU Sinus tender: negative Mouth: no mucous membrane abnormalities Neck: supple, symmetrical, trachea midline, no adenopathy and no JVD. Lungs: wheezes diffusely throughout both lungs Abdomen: exam not performed Assessment: 1. Essential hypertension - COMPREHENSIVE METABOLIC PANEL BP goals discussed and advised on heart healthy DASH diet eating. Weight loss recommended. Advised to take medications as soon as he is able 2/2 to elevated readings ands missed dose today 2. Nocturia - AMB Ref Sleep Studies - SDC SALUS; Future Elevated risk factors in place STOP BANG 04/21 3. Fatigue, unspecified type - CBC WITH DIFFERENTIAL 4. SOB (shortness of breath) - XR CHEST 2VW; Future viral upper respiratory illness Conservative measures encourages with PRN use of albuterol Will await CXR and adjust plan as indicated Plan: Discussed dx and tx of URIs Discussed the importance of avoiding unnecessary abx therapy. Suggested symptomatic OTC remedies. RTC prn. documented in this encounter Plan of Treatment Upcoming Encounters Date Type Department Care Team (Late st Contact Info) Description 10/20/2024 8:00 AM GROUND WORKER Office Visit [facility] - Family Medicine 604 [facility], [address] [phone] Kiana Cole MD 604 [place], [place] [phone] 11/28/2024 9:00 AM GROUND WORKER Office Visit [facility] Physician Group - Neurology [address] [facility] [place] [address] Aline Finch MD [address] [facility] [place] [address] 02/10/2025 10:00 AM CDT Office Visit [facility]ician Group - Cardiology [address] [phone] Curly Lay MD [address] [address] documented as of this encounter Procedures Procedure Name Priority Date/Time Associated Diagnosis Comments CBC W AUTO DIFFERENTIAL Routine 12/24/2019 9:23 AM CDT Fatigue, unspecified type COMPREHENSIVE METABOLIC PANEL Routine 12/24/2019 9:23 AM CDT Essential hypertension documented in this encounter Results * CBC WITH DIFFERENTIAL (12/24/2019 9:23 AM CDT) White Blood Cell Count 5.6 3.8 - 10.8 Thousand/u L [facility] RBC 4.56 4.20 - 5.80 Million/uL [facility] Hemoglobin 13.4 13.2 - 17.1 g/dL [facility] Hematocrit 40.1 38.5 - 50.0 % [facility] MCV 87.9 80.0 - 100.0 fL [facility] MCH 29.4 27.0 - 33.0 pg [facility] MCHC 33.4 32.0 - 36.0 g/dL [facility] RDW 13.6 11.0 - 15.0 % [facility] Platelet Count 253 140 - 400 Thousand/u L [facility] MPV 10.4 7.5 - 12.5 fL [facility] Neutrophil Absolute 3366 1500 - 7800 cells/uL [facility] Lymphocytes Absolute 1506 850 - 3900 cells/uL [facility] Absolute Monocytes 594 200 - 950 cells/uL [facility] Eosinophils Absolute 123 15 - 500 cells/uL [facility] Basophils Absolute 11 0 - 200 cells/uL [facility] Granulocytes % 60.1 % [facility] Lymphocytes % 26.9 % [facility] Monocytes % 10.6 % [facility] Eosinophils % 2.2 % [facility] Basophils % 0.2 % [facility] Comment: REPORT COMMENT: FASTING:YES Test Performed at: [facility] [address] [place] [address] ??[phone] EH PURVIS DO,MPH Blood BLOOD SPECIMEN / Unknown 12/24/2019 9:23 AM CDT 12/24/2019 9:26 AM CDT Nivia Peñaloza APRN-OLIVE GRADER LAB - HEMATOLOGY ORDERABLES Performing Organization Address City/State/[facility] Co de Phone Number [facility] [address] [place] [address] * (ABNORMAL) COMPREHENSIVE METABOLIC PANEL (12/24/2019 9:23 AM CDT) Pathologist [facility] Glucose 187(H) 65 - 99 mg/dL [facility] Comment: ? Fasting reference interval For someone without known diabetes, a glucose value >125 mg/dL indicates that they may have diabetes and this should be confirmed with a follow-up test. BUN 11 7 - 25 mg/dL [facility] Creatinine 0.97 0.70 - 1.25 mg/dL [facility] Comment: For patients >49 years of age, the reference limit for Creatinine is approximately 13% higher for people identified as -Bolivian. eGFR by MDRD 84 > OR = 60 mL/min/1 .73m2 [facility] eGFR by MDRD 97 > OR = 60 mL/min/1 .73m2 [facility] BUN/Creatinine Ratio NOT APPLICABLE 6 - 22 (calc) [facility] Sodium 136 135 - 146 mmol/L [facility] Potassium 4.0 3.5 - 5.3 mmol/L [facility] Chloride 101 98 - 110 mmol/L [facility] CO2 29 20 - 32 mmol/L [facility] Calcium 8.6 8.6 - 10.3 mg/dL [facility] Protein Total 7.3 6.1 - 8.1 g/dL [facility] Albumin 3.9 3.6 - 5.1 g/dL [facility] Globulin Total 3.4 1.9 - 3.7 g/dL (calc) [facility] Albumin/Globulin Ratio 1.1 1.0 - 2.5 (calc) [facility] Bilirubin Total 0.5 0.2 - 1.2 mg/dL [facility] Alkaline Phosphatase 71 35 - 144 U/L [facility] AST 14 10 - 35 U/L [facility] ALT 14 9 - 46 U/L [facility] Comment: REPORT COMMENT: FASTING:YES Test Performed at: [facility] [address] [place], [place] ??[phone] EH PURVIS DO,MPH Blood BLOOD SPECIMEN / Unknown 12/24/2019 9:23 AM CDT 12/24/2019 9:26 AM CDT Nivia Peñaloza CORPORATE PLANNING MANAGER-OLIVE GRADER LAB - CHEMISTRY O RDERABLES Performing Organization Address City/State/[facility] Co de Phone Number [facility] [address] [place] [address] documented in this encounter Visit Diagnoses Diagnosis Essential hypertension- Primary Nocturia Fatigue, unspecified type SOB (shortness of breath) Shortness of breath documented in this encounter Care Teams Patient Insurance Clerk Relationship Specialty Start Date End Date Lisy Olmedo MD PCP - General 04/20/09 05/09/22 documented as of this encounter
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
--- OUTSIDE RECORDS SUMMARY | 2024-10-11 19:45 | XMS_ITS | Encounter Summary ---
Author Organization [facility] Address [address] [facility] [place] [address] Care Team Providers Care Shampoo Person Name Role Phone Lisy Olmedo MD Primary Care Provide r Sylvain Daniels MD Primary Care Provider + [phone] None, Physician Primary Care Provider Unavailabl e Sylvain Daniels MD Unavailable [phone] Sylvain Daniels MD Unavailable [phone] Sylvain Daniels MD Unavailable [phone] Sylvain Daniels MD Primary Care Provider + [phone] Kiana Cole MD Primary Care Provider Sean Kyle MD Primary Care Provider [phone] Kiana Cole MD Primary Care Provider Reason for Visit * Reason Onset Date Comments MEDICATION REFILL 05/13/2021 Encounter Details Date Type Department Care Team (Late st Contact Info) Description 05/13/2021 Refill [facility] Medicine [address] [facility] [address] [place] [address] Lisy Olmedo MD [address] [place] [address] MEDICATION REFILL Social History Tobacco Use Types [...] person have serious difficulty walking/climbing stairs? Yes-post [facility]; needs rehab to build activity level. 01/30/2018 Does person have difficulty dressing/bathing? Yes-post CABG; needs some assist 01/30/2018 Does person have difficulty doing errands alone? Yes 01/30/2018 Cognitive Status Response Date of Assessm ent Does person have difficulty concentrating/remembering/making decisions? No 01/30/2018 documented as of this encounter Miscellaneous Notes * Telephone Encounter - Carlyn Wilson - 05/13/2021 2:16 PM CDT Yaya Vazquez Requested Prescriptions Pending Prescriptions Disp Refills ??? glipiZIDE CR 24hr (GLIPIZIDE XL) 5 MG tablet 30 tablet 5 Sig: Take [...] st Contact Info) Description 10/20/2024 8:00 AM SUPERVISOR UNLOADING Office Visit [facility] - Family Medicine [address] [facility] [address] [place] [phone] Kiana Cole MD [address] [place] [address] 11/28/2024 9:00 AM SUPERVISOR UNLOADING Office Visit [facility] - Neurology [address] [facility] [place] [phone] Aline Finch MD [address] [facility] [place] [address] 02/10/2025 10:00 AM CDT Office Visit [facility] - Cardiology [address] [facility] [place] [address] [place] [address] Curly Lay MD [address] [address] documented as of this encounter Visit Diagnoses Diagnosis Controlled type 2 diabetes mellitus without complication, without long-term current use of insulin (HCC) Type 2 diabetes mellitus with other circulatory complication, without long-term current use of insulin (HCC) documented in this encounter Additional Health Concerns Infection Onset Date Last Indicated Resolved Time COVID-19 Under Investigation 07/26/2022 07/26/2022 07/26/2022 5:54 PM CDT COVID-19 Under Investigation 04/10/2024 04/10/2024 04/10/2024 2:48 PM CDT documented as of this encounter Care Teams Shampoo Person Relationship Specialty Start Date End Date Lisy Olmedo MD PCP - General 04/20/09 05/09/22 Sylvain Daniels MD PCP - General Family Medicine 05/10/22 02/14/24 None, Physician [facility] [place] [address] PCP - General 02/15/24 05/16/24 Sylvain Daniels MD [address] [place] [address] PCP - Attributed-[employer] 05/15/22 10/01/22 Sylvain Daniels MD [address] [place] [address] PCP - Attributed-[employer] [facility] 02/12/23 04/01/23 Sylvain Daniels MD [address] [place] [address] PCP - General Family Medicine 05/17/24 05/19/24 Kiana Cole MD [address] [place] [address] PCP - General Internal Medicine 05/22/24 08/04/24 Sean Kyle MD [address] [place] [address] PCP - General Internal Medicine 08/05/24 09/15/24 Kiana Cole MD [address] [place] [address] PCP - General Internal Medicine 09/16/24 Syvlain Daniels MD Family Medicine 02/15/24 documented as of this encounter
--- OUTSIDE RECORDS SUMMARY | 2024-10-11 19:45 | XMS_ITS | Encounter Summary ---
Author Organization [facility] Health Address [address] [place] [address] Care Team Providers Care Summer Analyst Name Role Phone Lsiy Olmedo MD Primary Care Provide r Reason for Visit * Reason Onset Date Comments Future Appointment 01/01/2020 Needs resched uled Encounter Details Date Type Department Care Team (Late st Contact Info) Description 01/01/2020 Telephone [facility] [address] [facility] [address] [place], [place] [phone] Valerie Reddy Future Appointment (Needs rescheduled ) Social History Tobacco Use Types Packs/Day Years [...] encounter Miscellaneous Notes * Telephone Encounter - Valerie Reddy - 01/01/2020 3:45 PM CDT X2 Also sent a mychart * Telephone Encounter - Valerie Reddy - 01/01/2020 10:44 AM CDT There was not an identifier on the patients voicemail so a detailed message was not left for the patient. A generic message was left on the patients voicemail recorder asking the patient to call the officeback at [phone] Option # 3 The reason for the call listed below: I called Yaya Vazquez's cell number to inform the patient that the up coming appointment scheduled with Dr Olmedo on 01/06/20 has to be rescheduled due to the provider not being in the office on that day. I LVM for Yaya Vazquez to please contact the office at [phone] to reschedule this appointment. documented in this encounter Plan of Treatment Upcoming Encounters Date Type Department Care Team (Late st Contact Info) Description 10/20/2024 8:00 AM SENIOR ANALYTICAL CHEMIST Office Visit [facility] - Family Medicine [address] [facility] [address] [place] [phone] Kiana Cole MD [address] [facility] [place] [phone] 11/28/2024 9:00 AM SENIOR ANALYTICAL CHEMIST Office Visit [facility] - Neurology [address] [facility] [place] [address] Aline Finch MD [address] [facility] [place] [address] 02/10/2025 10:00 AM CDT Office Visit [facility] - Cardiology [address] [facility] [address] [place] [phone] Curly Lay MD [address] [place] [address] documented as of this encounter Visit Diagnoses Not on filedocumented in this encounter Care Teams Summer Analyst Relationship Specialty Start Date End Date Lisy Olmedo MD PCP - General 04/20/09 05/09/22 documented as of this encounter
--- OUTSIDE RECORDS SUMMARY | 2024-10-11 19:45 | XMS_ITS | Encounter Summary ---
Author Organization [facility] Address [address] [facility] [place] [address] Care Team Providers Care Solid Waste Division Supervisor Name Role Phone Sylvain Daniels MD Primary Care Provider +- [phone] Sylvain Daniels MD Unavailable [phone] Encounter Details Date Type Department Care Team (Late st Contact Info) Description 09/04/2022 Patient Outreach [facility] Group - Care Coordination [address] [place] [phone] Tarah Hager Social History Tobacco Use Types [...] * Telephone Encounter - Tarah Hager - 09/04/2022 10:19 AM CST 2nd attempt, VM full RT DESK CLERK documented in this encounter Plan of Treatment Upcoming Encounters Date Type Department Care Team (Late st Contact Info) Description 10/20/2024 8:00 AM RESORT DESK CLERK Office Visit [facility] - Family Medicine [address] [facility] [place] [address] [place] [phone] Kiana Cole MD [address] [place] [address] 11/28/2024 9:00 AM RESORT DESK CLERK Office Visit [facility] - Neurology [address] [facility] [place] [phone] Aline Finch MD [address] [facility] [place] [address] 02/10/2025 10:00 AM CDT Office Visit [facility] - Cardiology [address] [facility] [address] [place] [phone] Curly Lay MD [address] [facility] [address] [place] [phone] documented as of this encounter Visit Diagnoses Not on filedocumented in this encounter Care Teams Solid Waste Division Supervisor Relationship Specialty Start Date End Date Sylvain Daniels MD PCP - General Family Medicine 05/10/22 02/14/24 Sylvain Daniels MD [address] [facility] [place] [phone] PCP - Attributed-[facility] Commercial 05/15/22 10/01/22 documented as of this encounter
--- OUTSIDE RECORDS SUMMARY | 2024-10-11 19:45 | XMS_ITS | Encounter Summary ---
Author Organization [facility] Address [address] [place] [address] Care Team Providers Care Nougat Cutter Machine Name Role Phone Sylvain Daniels MD Primary Care Provider [phone] Sylvain Daniels MD Unavailable [phone] Reason for Visit * Reason Comments Hospital Follow-up Encounter Details Date Type Department Care Team (Late st Contact Info) Description 08/03/2022 3:00 PM CDT Office Visit [facility] - Family Medicine [address] [place] [phone] Hazel Saul, PA-C [address] [place] [address] Hospital discharge follow-up (Primary Dx); Type 2 diabetes mellitus with other circulatory complication, without long-term current use of insulin (HCC); Obstructive airway disease (HCC) Social History Tobacco Use Types Packs/Day [...] Sign Reading Time Taken Comments Blood Pressure 123/65 08/03/2022 3:18 PM CDT Pulse 91 08/03/2022 3:18 PM CDT Temperature 36.5 ??C (97.7 ??F) 08/03/2022 3:18 PM CD T Respiratory Rate 20 08/03/2022 3:18 PM CDT Oxygen Saturation 95% 08/03/2022 3:18 PM CDT Inhaled Oxygen Concentration - - Weight 143.8 kg (317 lb) 08/03/2022 3:18 PM CDT Height 193 cm (6' 4 ) 08/03/2022 3:18 PM CDT Body Mass Index 38.59 08/03/2022 3:18 PM CDT documented in this encounter Functional [...] as of this encounter Progress Notes * Hazel Saul PA-C - 08/03/2022 3:25 PM CDT Office Visit HPI: Yaya Vazquez is a 61 year old male with history of CAD status post CABG , diabetes, hypertension who presents with Chief Complaint Patient presents with ??? Hospital Follow-up Patient presented to [facility] ED on 07/26/2022 for evaluation of hypoxia and SOB after 1 week of dry cough and itching sensation in his throat. Patient was then admitted for further workup of hypoxia. BNP and troponin within normal limits in the ED. Pt was treated for COPD with possible simple acute bronchitis. Patient was treated with IV steroids with improvement in symptoms. CXR unremarkable. Covid and flu negative. Patient was discharged on 07/28/22 with instructions to continue 2 L of oxygen,outpatient pulmonary follow-up for spirometry, ICS/LABA, albuterol p.r.n., and instructions to continue prednisone course. Patient was instructed to follow-up with Dr. Spann (pul); however patient states seeing a specialist is very costly for him as well as he is unable to take time off work. He is amenable to seeing a health information assistant in a couple months. Patient states he is doing well since his discharge. He did not get his prednisone 20 mg. He statesSymbicort was too costly for him. He is only using albuterol prn. Denies SOB or CP. Patient with history of diabetes, last hemoglobin A1c 6.7. Pt currently taking metofmrin 500 mg BIDand glipizide 5 mg. Patient states his blood glucose was about 300 yesterday but states he did not have in meal. He states his diet has been ???all over the place???. He states with his recent hospitalization, he is having trouble staying on track. He has the following history as recorded in [facility]: Current Outpatient Medications Medication Sig Dispense Refill ??? albuterol HFA (Proventil; Ventolin; Proair) 108 (90 Base) MCG/ACT inhaler Inhale 2 (two) puffs by mouth every 4 hours as needed for Wheezing 18 g 0 ??? amLODIPine (NORVASC) 10 [...] 1 ??? CPAP Use as directed ??? dextromethorphan-guaiFENesin (Robitussin DM) 10-100 MG/5ML syrup Take 5-10 mL by mouth every 4 hours as needed for Cough 354 mL 0 ??? Dxonxsuiivp-Jnedbawki-Dqqnnm (Trelegy Ellipta) 100-62.5-25 MCG/INH Inhale 1 (one) puff by mouthonce daily 1 Each 3 ??? glipiZIDE CR 24hr (GLIPIZIDE XL) 5 [...] (one) tablet by mouth 2 times daily (Patient not taking: Reported on 08/03/2022) 20 tablet 0 ??? nitroGLYCERIN (NITROSTAT) 0.4 [...] This medicine cannot be combined with nitroglycerin. (Patient not taking: Reported on 08/03/2022) 30 tablet 3 ??? spironolactone (ALDACTONE) 25 MG tablet Take 1 (one) tablet by mouth once daily 30 tablet 5 No current facility-administered medications for this visit. Allergies: Lisinopril, Pcn [penicillins], and Penicillin v Past Medical History: Diagnosis Date ??? Anemia 01/2018 ??? Asthma ??? Chest congestion 08/05/2020 ??? Confusional arousals 08/05/2020 ??? Controlled type 2 diabetes mellitus without complication, without long-term current use of insulin ([facility]) 09/28/2011 ??? Coronary artery disease involving sleetmute heart with angina pectoris ([facility]) 09/04/2018 ??? Cough syncope 2017 ??? Daytime sleepiness 08/05/2020 ??? Essential hypertension 01/23/2018 ??? Hyperlipidemia 08/05/2020 ??? Inadequate sleep hygiene 08/05/2020 ??? Morbid obesity with BMI of 40.0-44.9, adult ([facility]) 08/05/2020 ??? Nocturia 08/05/2020 ??? Obesity (BMI [...] Diabetes - Type 2 Sister Social History Tobacco Use ??? Smoking status: Never Smoker ??? Smokeless tobacco: Never Used ??? Tobacco comment: 3-4 times / month-2020 says 1x/month Substance Use Topics ??? Alcohol use: Yes Alcohol/week: 10.0 standard drinks Types: 10 Standard drinks or equivalent per week Review of Systems: Refer to [facility] Review of Systems Constitutional: Negative for chills, fever, malaise/fatigue and weight loss. HENT: Negative for ear discharge, ear pain, hearing loss, nosebleeds and sore throat. Eyes: Negative for blurred vision, double vision, photophobia, pain, discharge and redness. Respiratory: Negative for cough, sputum production, shortness of breath, wheezing and stridor. Cardiovascular: Negative for chest pain, palpitations and leg swelling. Gastrointestinal: Negative for abdominal pain, diarrhea, heartburn, nausea and vomiting. Genitourinary: Negative for frequency and urgency. Musculoskeletal: Negative for back pain, joint pain and myalgias. Skin: Negative for itching and rash. Neurological: Negative for dizziness, tingling, sensory change, speech change and headaches. Endo/Heme/Allergies: Does not bruise/bleed easily. Psychiatric/Behavioral: Negative for depression, substance abuse and suicidal ideas. The patient isnot nervous/anxious and does not have insomnia. Exam: BP 123/65 (BP SITE: LEFT ARM, BP POSITION: SITTING, BP CUFF SIZE: 12) Pulse 91 Temp 97.7 ??F (36.5 ??C) (Temporal) Resp 20 Ht 1.93 m (6' 4 ) Wt (!) 143.8 kg (317 lb) SpO2 95% BP Readings from Last 3 Encounters: 08/03/22 123/65 07/28/22 142/79 05/10/22 (!) 178/144 Physical Exam Constitutional: Appearance: Normal appearance. HENT: Head: Normocephalic and atraumatic. Right Ear: External ear normal. Left Ear: External ear normal. Nose: Nose normal. Mouth/Throat: Mouth: Mucous membranes are moist. Eyes: Pupils: Pupils are equal, round, and reactive to light. Cardiovascular: Rate and Rhythm: Normal rate and regular rhythm. Pulses: Normal pulses. Heart sounds: Normal heart sounds. Pulmonary: Effort: Pulmonary effort is normal. Breath sounds: Normal breath sounds. Musculoskeletal: General: Normal range of motion. Cervical back: Normal range of motion. Skin: General: Skin is warm. Capillary Refill: Capillary refill takes less than 2 seconds. Neurological: General: No focal deficit present. Mental Status: He is alert and oriented to person, place, and time. Mental status is at baseline. Psychiatric: Mood and Affect: Mood normal. Behavior: Behavior normal. Thought Content: Thought content normal. Judgment: Judgment normal. Data: Office Visit on 08/03/22 HEMOGLOBIN A1C - POINT OF CARE (AMB) Result Value Ref Range Hemoglobin A1c POCT 7.2 % Expiration Date 04/09/2024 Lot # [id number] QC Verified Yes Yes Imaging/Laboratory review: Recent Labs Component Name 07/27/22 0244 07/26/22165212/24/19 0923 SODIUM 134* 138 136 POTASSIUM 4.2 4.0 4.0 CHLORIDE 95* 96* 101 CO2 25 29 29 BUN 17 13 11 CREATININE 0.98 0.94 0.97 GLUCOSE 285* 151* 187* CALCIUM 8.9 9.2 8.6 Recent Labs Component Name 07/27/22 0244 07/26/22165212/24/19 0923 WBC 10.2 9.7 5.6 HGB 12.2 12.2 13.4 HCT 38.4 36.7 40.1 PLTCOUNT 254 254 253 XR CHEST 1VW PORTABLE Result Date: 07/26/2022 PROCEDURE: XR CHEST 1VW PORTABLE, DATE/TIME OF EXAM: 07/26/2022 4:00 PM, LOCATION [facility] INDICATION: Shortness of breath with weakness. COMPARISON: 09/04/2018. FINDINGS: Lungs are clear. Stable cardiomegaly. No vascular congestion. There is a midline sternotomy. Bony thorax is unremarkable. IMPRESSION: 1. Stable cardiomegaly. No acute cardiopulmonary process is identified. > Interpreting Provider: Alexei Cruz DO on 07/26/2022 4:09 PM Assessment & Plan: 1. Hospital discharge follow-up 2. Type 2 diabetes mellitus with other circulatory complication, without long- term current use of insulin ([facility]) - HEMOGLOBIN A1C - POINT OF CARE (AMB) 3. Obstructive airway disease (CMS/HCC) - Oxigfqgtjsi-Aeprzzogv-Spybyv (Trelegy Ellipta) 100-62.5-25 MCG/INH; Inhale 1 (one) puff by mouth once daily Dispense: 1 Each; Refill: 3 - Hgb A1c today 7.2 (from 6.7 in April 2022); pt reluctant to DM med changes; pt states he will follow a diabetic diet and increase PE; recheck Hgb A1c in 3 mos - pt unable to afford Symbicort; will try Trelegy, cont albuterol prn - strongly encourage f/u with Dr. Joshua Spann (pulm) as instructed by internal medicine during his hospital stay Return in about 3 months (around 11/03/2022) for DM2, sooner if needed. Hazel Saul PA-C 08/03/2022 4:14 PM Associated attestation - Sylvain Daniels MD - 08/04/2022 10:35 AM CDT Physician Attestation: For this patient encounter, I reviewed the PA's documentation and agree with history and physical and plan. documented in this encounter Plan of Treatment Upcoming Encounters Date Type Department Care Team (Late st Contact Info) Description 10/20/2024 8:00 AM TRAVELING REPRESENTATIVE Office Visit [facility] - Family Medicine [address] [phone] Kiana Cole MD [address] [place] [address] 11/28/2024 9:00 AM TRAVELING REPRESENTATIVE Office Visit [facility] - Neurology [address] [facility] [place] [address] Aline Finch MD [address] [facility] [place] [address] 02/10/2025 10:00 AM CDT Office Visit [facility] - Cardiology [address] [facility] [address] [place] [phone] Curly Lay MD [address] [facility] [address] [place] [address] documented as of this encounter Procedures Procedure Name Priority Date/Time Associated Diagnosis Comments HEMOGLOBIN A1C - POINT OF CARE (AMB) Routine 08/03/2022 3:45 PM CDT Type 2 diabetes mellitus with other circulatory complication, without long-term current use of insulin (HCC) documented in this encounter Results * HEMOGLOBIN A1C - POINT OF CARE (AMB) (08/03/2022 3:45 PM CDT) Hemoglobin A1c POCT 7.2 % [facility] Expiration Date 04/09/2024 [facility] Lot # [id number] [facility] [place] QC Verified Yes Yes [facility] Blood BLOOD SPECIMEN / Unknown 08/03/2022 3:45 PM CDT Hazel Saul PA-C LAB - POINT OF CARE ORDERABLES Performing Organization Address City/State/[facility] Co de Phone Number [facility] [phone] documented in this encounter Visit Diagnoses Diagnosis Hospital discharge follow-up- Primary Other follow-up examination Type 2 diabetes mellitus with other circulatory complication, without long-term current use of insulin (HCC) Obstructive airway disease (HCC) Chronic airway obstruction, not elsewhere classified documented in this encounter Care Teams Nougat Cutter Machine Relationship Specialty Start Date End Date Sylvain Daniels MD PCP - General Family Medicine 05/10/22 02/14/24 Sylvain Daniels MD [address] [place] [address] PCP - Attributed-[facility] Commercial 05/15/22 10/01/22 documented as of this encounter
--- OUTSIDE RECORDS SUMMARY | 2024-10-11 19:45 | XMS_ITS | Encounter Summary ---
Author Organization [facility] Address [address] [place] [address] Care Team Providers Care Customs Compliance Manager Name Role Phone Lisy Olmedo MD Primary Care Provide r Reason for Visit * Reason Onset Date Comments MEDICATION REFILL 09/22/2020 Encounter Details Date Type Department Care Team (Late st Contact Info) Description 09/22/2020 Refill [facility] Family and Community Medicine [address] [address] Lisy Olmedo MD [facility] [place] [address] MEDICATION REFILL Social History Tobacco Use Types [...] * Telephone Encounter - Josefina Jeffries - 09/22/2020 12:15 PM CST This patient is requesting a refill on medication Last office visit:05/17/20 Recommended next office visit:09/16/20 Next scheduled office visit:none @Medication requesting@ Taken by:Josefina RODRIGUEZ TARY ADMINISTRATIVE TECHNICIAN documented in this encounter Plan of Treatment Upcoming Encounters Date Type Department Care Team (Late st Contact Info) Description 10/20/2024 8:00 AM MILITARY ADMINISTRATIVE TECHNICIAN Office Visit [facility] - Family Medicine [address] [facility] [address] [place] [phone] Kiana Cole MD [address] [place] [address] 11/28/2024 9:00 AM MILITARY ADMINISTRATIVE TECHNICIAN Office Visit [facility] - Neurology [address] [facility] [place] [phone] Aline Finch MD [address] [facility] [place] [address] 02/10/2025 10:00 AM CDT Office Visit [facility] - Cardiology [address] [facility], [facility] [address] [place] [phone] Curly Lay MD [address] [place] [address] documented as of this encounter Visit Diagnoses Diagnosis Essential hypertension Controlled type 2 diabetes mellitus without complication, without long-term current use of insulin (HCC) Type 2 diabetes mellitus with other circulatory complication, without long-term current use of insulin (HCC) documented in this encounter Care Teams Customs Compliance Manager Relationship Specialty Start Date End Date Lisy Olmedo MD PCP - General 04/20/09 05/09/22 documented as of this encounter
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
--- OUTSIDE RECORDS SUMMARY | 2024-10-11 19:45 | XMS_ITS | Encounter Summary ---
Author Organization [facility] Health Address [address] [place] [address] Care Team Providers Care Farm Rancher Name Role Phone Lisy Olmedo MD Primary Care Provide r Reason for Visit * Reason Onset Date Comments MEDICATION REFILL 09/19/2020 Encounter Details Date Type Department Care Team (Late st Contact Info) Description 09/19/2020 Refill [facility] Family and Community Medicine [address] [address] Lisy Olmedo MD [facility] [place] [address] MEDICATION REFILL Social History Tobacco Use Types [...] * Telephone Encounter - Josefina Jeffries - 09/21/2020 3:02 PM CST This patient is requesting a refill on medication Last office visit:08/08/20 Recommended next office visit:---- Next scheduled office visit:none @Medication requesting@ Taken by:Josefina R. RMA ECT MANAGER/TEAM COACH documented in this encounter Plan of Treatment Upcoming Encounters Date Type Department Care Team (Late st Contact Info) Description 10/20/2024 8:00 AM PROJECT MANAGER/TEAM COACH Office Visit [facility] Medical Group - Family Medicine [address] [facility] [facility] [address] [place] [phone] Kiana Cole MD [address] [place] [address] 11/28/2024 9:00 AM PROJECT MANAGER/TEAM COACH Office Visit [facility] Physician Group - Neurology [address] [facility] [place] [phone] Aline Finch MD [address] [facility] [place] [address] 02/10/2025 10:00 AM CDT Office Visit [facility]ician Group - Cardiology [address] [id number] [place] [phone] Curly Lay MD [address] [place] [address] documented as of this encounter Visit Diagnoses Diagnosis Essential hypertension Coronary artery disease involving [place] coronary artery of [place] heart with angina pectoris (HCC) Controlled type 2 diabetes mellitus without complication, without long-term current use of insulin (HCC) Type 2 diabetes mellitus with other circulatory complication, without long-term current use of insulin (HCC) documented in this encounter Care Teams Farm Rancher Relationship Specialty Start Date End Date Lisy Olmedo MD PCP - General 04/20/09 05/09/22 documented as of this encounter
--- OUTSIDE RECORDS SUMMARY | 2024-10-11 19:45 | XMS_ITS | Encounter Summary ---
Author Organization [facility] Health Address [address] [place] [address] Care Team Providers Care Animal Nutrition Teacher Name Role Phone Lisy Olmedo MD Primary Care Provide r Reason for Visit * Reason Onset Date Comments MEDICATION REFILL 02/24/2021 Encounter Details Date Type Department Care Team (Late st Contact Info) Description 02/24/2021 Refill [facility] Family and Community Medicine [address] [facility] [address] [place] [address] Josefina Jeffries MEDICATION REFILL Social History Tobacco Use Types [...] * Telephone Encounter - Josefina Jeffries - 02/24/2021 4:23 PM CDT Sent to [facility] documented in this encounter Plan of Treatment Upcoming Encounters Date Type Department Care Team (Late st Contact Info) Description 10/20/2024 8:00 AM FURNACE ROASTER Office Visit [facility] Medical Group - Family Medicine [address] [facility] [place] [place] [phone] Kiana Cole MD [address] [place] [address] 11/28/2024 9:00 AM FURNACE ROASTER Office Visit [facility] Physician Group - Neurology [address] [facility] [place] [address] Aline Finch MD [address] [facility] [place] [address] 02/10/2025 10:00 AM CDT Office Visit [facility] Physician Group - Cardiology [address] [facility] [facility] [address] [place] [phone] Curly Lay MD [address] [place] [address] documented as of this encounter Visit Diagnoses Diagnosis Essential hypertension documented in this encounter Care Teams Animal Nutrition Teacher Relationship Specialty Start Date End Date Lisy Olmedo MD PCP - General 04/20/09 05/09/22 documented as of this encounter
--- OUTSIDE RECORDS SUMMARY | 2024-10-11 19:46 | XMS_ITS | Encounter Summary ---
Author Organization [facility] Health Address [address] [place] [address] Care Team Providers Care Recreational Programs Director Name Role Phone Lisy Olmedo MD Primary Care Provide r Reason for Visit * Reason Comments Results Encounter Details Date Type Department Care Team (Late st Contact Info) Description 02/22/2018 3:15 PM CDT Office Visit [facility] Cardiology [address] [facility] [address] [place] [address] Nehemias Dennis MD [address] [place], [place] [phone] Coronary artery disease involving coronary bypass graft of seneca heart with unstable angina pectoris (HCC) (Primary Dx); Hypertension, unspecified type; S/P CABG x 3; Wound of sternal region; Type 2 diabetes mellitus with other circulatory complication, without long-term current use of insulin (HCC) Social History Tobacco Use Types Packs/Day Years Used Date Smoking Tobacco: Former Cigars Smokeless Tobacco: Never Comments:3-4 times / month Sex and Gender Information Value Date Recorded Sex Assigned at Not on file Gender Identity Not on file Sexual Orientation Not on file documented as of this encounter Last Filed Vital Signs Vital Sign Reading Time Taken Comments Blood Pressure 144/82 02/22/2018 3:21 PM CDT Pulse 77 02/22/2018 3:21 PM CDT Temperature - - Respiratory Rate - - Oxygen Saturation 97% 02/22/2018 3:21 PM CDT Inhaled Oxygen Concentration - - Weight 131.5 kg (290 lb) 02/22/2018 3:21 PM CDT Height 193 cm (6' 4 ) 02/22/2018 3:21 PM CDT Body Mass Index 35.3 02/22/2018 3:21 PM CDT documented in this encounter Functional [...] this encounter Patient Instructions * Patient Instructions* Nehemias Dennis MD - 02/22/2018 3:54 PM CDT Start losartan 25 mg daily Obtain bloodwork in 5 days at [facility]. Stop metoprolol and start coreg 12.5 mg twice a day Start atorvastatin 80 mg nightly. Apply neosporin three times a day. documented in this encounter Progress Notes * Jeffrey Jo MD - 02/22/2018 4:01 PM CDT ATTENDING PHYSICIAN NOTE Patient seen and examined with the fellow. I confirm the history, exam, assessment and plan. In addition I note: Chief complaint: Abnormal stress test. Prior History: Multiple risk factors. Classic angina relieved by rest. Nuc stress test with EF 47%, severe inferior and inferolateral ischemia. Mets 6-7. Still having angina. BP high and Coreg to be added. Moderate to high risk test. Angiography with 3 vessel CAD. CABG x 3. Interval history: Popped open. Upper incision. Serous drainage. Waiting on rehab. Exam OK except sternotomy. 01/24/2018 [address] vehicle. Legs OK. Right leg OK. No edema. Med titration and HTN. High dose statin. Switch to losartan and push metoprolol. Social History Social History ??? Marital status: Spouse name: N/A ??? Number of children: N/A ??? Years of education: N/A Social History Main Topics ??? Smoking status: Never Smoker ??? Smokeless tobacco: Never Used ??? Alcohol use 1.0 oz/week 2 drink(s) per week ??? Drug use: No ??? Sexual activity: Yes Partners: Female Other Topics Concern ??? None Social History Narrative Jenn Farias- sister family history includes Cancer in his mother; Diabetes in his father; Hypertension in his father. Allergies Allergen Reactions ??? Pcn [Penicillin V] Rash ??? No Known Latex Allergy has a past medical history of Coronary artery disease; Diabetes mellitus; and Hypertension. A full 12 point review of systems was performed and was otherwise negative besides what was mentioned in the HPI. Exam: BP 144/82 (BP Location: Left arm, Patient Position: Sitting) Pulse 72 Ht 6' 3 (1.905 m) Wt 288 lb (130.6 kg) SpO2 98% BMI 36 kg/m2 NAD. HEENT: neck supple. Atraumatic. Cor: RRR. No JVD. No S3 Resp: clear bilaterally. GI: soft. NT. Ext: no edema Medications were reviewed; please see the fellow's note for complete list. Data Review: pertinent lab and cardiac data reviewed ECG: Normal sinus rhythm. Inferior T wave inversion. LVH and anterolateral ST elevation, Assessment/Plan: Ongoing classic angina with reduced capacity and moderate to high risk nuc stress.> 25% at risk myocardium, low ischemic threshold. Angiography with 3V CAD. ECHO - screen valves. [place] CABG. Topical scab off but wound solid. Superficial infection. Topical Rx. Triple Abx. No pools or bath. No hot tub. Change dressing bid. Avoid heat. Stay in AC. No pools til completely healed and sealed. Follow status, weight, vitals and edema, Titrate meds prn. Keep K > 4, Mg > 2, SaO2 > 92% and Hgb > 9. Add Coreg and follow Sx. Agree with losartan. Agree with high dose atorvastatin. Coreg better for DM. Follow control. Cardiac rehab and follow wound. Final plans to follow. Follow up to be determined. Please see the fellow's note for further details. Jeffrey Jo MD, F.A.C.C. burn out scarfing operator 02/22/2018 2:40 PM * Nehemias Dennis MD - 02/22/2018 3:28 PM CDT Apolinar is a 57 y.o. male with a history of CAD s/p CABG x3 (VALENZUELA to LAD, Radial to OM, SVG to PDA) on01/24, hypertension, hyperlipidemia, and diabetes mellitus type II who presents for [facility] up appt.Pt states doing well since surgery, stamina continues to improve. Pt states has not started cardiacrehab as of yet. Pt quit cigars. Pt denies any chest discomfort, states sternotomy site has opened but no pain, minimal drainage. Pt states can walk few blocks and did ok. Pt denies any orthopnea, PND, palpitations, or leg swelling. Pt states with sleeping some difficulty worrying about sternotomy site. Review of Systems: A comprehensive 12 point [...] current facility-administered medications for this visit. BP 144/82 (BP Location: Left arm, Patient Position: Sitting) Pulse 77 Ht 6' 3 (1.905 m) Wt 288 lb (130.6 kg) SpO2 98% BMI 36 kg/m2 General: AOx3, NAD CV: RRR without murmurs/gallops. Normal S1S2. No JVD or carotid bruits. Chest: sternotomy drainage serosanguinous minimal purulence no erythema, Respiratory: CTA (B) Abdomen: Soft, Nontender, Nondistended, +BS Extremities: Warm, no edema, peripheral pulses +2 throughout Most Recent Labs/Data: Last EC10/2017 NSR with early repolarization Last Echo/Stress: 01/25/2018 ECHO There is mild concentric left ventricular hypertrophy. The LV cavity size is normal. Left ventricular systolic function is normal without wall motion abnormalities. Estimated LV EF is 55%. Dilated aortic root? 4.1 cm at the sinus of Valsalva. Proximal ascending aorta is 3.4cm 10/2017 NM nuclear stress Impression: 1. Abnormal exercise test because of [...] available for comparison. Last Cath: 11/2017 Cath ?i.?Left main: large caliber vessel that is without angiographic evidence of atherosclerotic disease ?ii.? LAD: There is a severe 90% stenosis of the proximal segment.?D1 is without angiographic evidence of atherosclerotic disease.?The middle segment of the LAD has a mild 20% stenosis. The remainder of the LAD system is without angiographic evidence of atherosclerotic disease.?iii.? LCx: nondominant vessel that gives rise to a high OM1 branch.?The proximal LCx and OM1 are without angiographic evidence of atherosclerotic disease. The middle segment of the LCx has a moderate 50% stenosis, followed by a severe 80% stenosis, followed by a moderate 40% stenosis.?There are 3 other OM branches, and the system terminates with a PL branch.?iv.? RCA: dominant vessel.?The proximal and middle segments [...] Radial to OM, SVG to PDA) on 01/24 -switch to coreg 12.5 mg BID -start losartan 25 mg -BMP 1 week -lasix 40 mg daily -atorvastatin 80 mg -continue bASA daily -cardiac rehab Sternotomy site- incision site some serosanguinous drainage no erythema -neosporin TID -dressing change Aortic dilatation- on echo 4.1 cm at sinus of valsalva -will reassess aortic root at later date Yaya Vazquez left clinic with the following instructions: As above documented in this encounter Plan of Treatment Upcoming Encounters Date Type Department Care Team (Late st Contact Info) Description 10/20/2024 8:00 AM BURLAP ROLL COVERER Office Visit [facility] - Family Medicine [address] [place] [address] Kiana Cole MD [address] [place] [address] 11/28/2024 9:00 AM BURLAP ROLL COVERER Office Visit [facility] - Neurology [address] [facility], [place] [address] Aline Finch MD [address] [facility] [place] [address] 02/10/2025 10:00 AM CDT Office Visit [facility] - Cardiology [address] [facility] [address] [place] [address] Curly Lay MD [address] [place] [phone] documented as of this encounter Visit Diagnoses Diagnosis Coronary artery disease involving coronary bypass graft of seneca heart with unstable angina pectoris (HCC)- Primary Hypertension, unspecified type S/P CABG x 3 Postsurgical aortocoronary bypass status Wound of sternal region Type 2 diabetes mellitus with other circulatory complication, without long-term current use of insulin (HCC) documented in this encounter Care Teams Recreational Programs Director Relationship Specialty Start Date End Date Lisy Olmedo MD PCP - General 04/20/09 05/09/22 documented as of this encounter
--- OUTSIDE RECORDS SUMMARY | 2024-10-11 19:46 | XMS_ITS | Encounter Summary ---
Author Organization [facility] Health Address [address] [place] [address] Care Team Providers Care Agriculture Intern Name Role Phone Lisy Olmedo MD Primary Care Provide r Encounter Details Date Type Department Care Team (Late st Contact Info) Description 03/13/2018 Orders Only [facility] [address] [place] [address] Kecia Wang, ZACHARY Coronary artery disease involving coronary bypass graft of lime heart with unstable angina pectoris (HCC) ; S/P CABG x 3 Social History Tobacco [...] as of this encounter Progress Notes * Kecia Wang, ZACHARY - 03/18/2018 3:42 PM CDT See daily exercise activity log in media. documented in this encounter Plan of Treatment Upcoming Encounters Date Type Department Care Team (Late st Contact Info) Description 10/20/2024 8:00 AM FINANCIAL REPORTING MANAGER Office Visit [facility] - Family Medicine [address] [phone] Kiana Cole MD [address] [place], [place] [phone] 11/28/2024 9:00 AM FINANCIAL REPORTING MANAGER Office Visit [facility] - Neurology [address] [facility], [place] [address] Aline Finch MD [address] [facility] [place] [address] 02/10/2025 10:00 AM CDT Office Visit [facility] - Cardiology [address] [facility], [address] [address] Curly Lay MD [address] [phone] documented as of this encounter Visit Diagnoses Diagnosis Coronary artery disease involving coronary bypass graft of lime heart with unstable angina pectoris (HCC)- Primary S/P CABG x 3 Postsurgical aortocoronary bypass status documented in this encounter Care Teams Agriculture Intern Relationship Specialty Start Date End Date Lisy Olmedo MD PCP - General 7/7/09 7/26/22 documented as of this encounter
--- OUTSIDE RECORDS SUMMARY | 2024-10-11 19:46 | XMS_ITS | Encounter Summary ---
Author Organization [facility] Health Address [address] [place] [address] Care Team Providers Care Community Resource Officer Name Role Phone Lisy Olmedo MD Primary Care Provide r Encounter Details Date Type Department Care Team (Latest Contact Info) Description 01/29/2018 2:26 PM CDT Hospital Encounter [facility] [address] [place] [id number] Ruby Valdez MD [facility] [address] [place] [phone] [facility] Social History Tobacco Use [...] Recorded Patient Health Questionnaire-2 Score 0 09/17/2024 [facility] - Occupational [...] Coronavirus/COVID-19? No / Unsure 10/18/2022 9:47 AM CANVAS GOODS MAKER documented as of this encounter Plan of Treatment Upcoming Encounters Date Type Department Care Team (Late st Contact Info) Description 10/20/2024 8:00 AM CANVAS GOODS MAKER Office Visit [facility] - Family Medicine [address] [facility] [address] [place] [phone] Kiana Cole MD [address] [place], [place] [phone] 11/28/2024 9:00 AM CANVAS GOODS MAKER Office Visit [facility] - Neurology [address] [facility], [place] [address] Aline Finch MD [address] [facility] [place] [address] 02/10/2025 10:00 AM CDT Office Visit [facility] - Cardiology [address] [place] [phone] Curly Lay MD [address] [place] [address] documented as of this encounter Visit Diagnoses Not on filedocumented in this encounter Additional Health Concerns Infection Onset Date Last Indicated Resolved Time COVID-19 Under Investigation 07/26/2022 07/26/2022 07/26/2022 5:54 PM CDT COVID-19 Under Investigation 04/10/2024 04/10/2024 04/10/2024 2:48 PM CDT documented as of this encounter Care Teams Community Resource Officer Relationship Specialty Start Date End Date Lisy Olmedo MD PCP - General 04/20/09 05/09/22 documented as of this encounter
--- OUTSIDE RECORDS SUMMARY | 2024-10-11 19:46 | XMS_ITS | Encounter Summary ---
Author Organization [facility] Health Address [address] [place] [address] Care Team Providers Care Emergency Management Director Name Role Phone Lisy Olmedo MD Primary Care Provide r Reason for Visit * Reason Comments Refill Request Encounter Details Date Type Department Care Team (Late st Contact Info) Description 09/03/2018 Refill [facility] Family and Community Medicine [address] [address] Lisy Olmedo MD [facility] [place] [address] Refill Request Social History Tobacco Use Types [...] * Telephone Encounter - Josefina Jeffries - 09/04/2018 9:29 AM CST Last Office Visit:11/07/17 Next Office Visit: none Recommended Office Visit: ----- Patient is requesting: Glipizide XL 5 mg [employer] documented in this encounter Plan of Treatment Upcoming Encounters Date Type Department Care Team (Late st Contact Info) Description 10/20/2024 8:00 AM DIRECTOR [employer] SALES Office Visit [facility] - Family Medicine [address] [facility] 150 [place] [phone] Kiana Cole MD [address] [place] [address] 11/28/2024 9:00 AM DIRECTOR [employer] SALES Office Visit [facility] - Neurology [address] [facility], [place] [phone] Aline Finch MD [address] [facility] [place] [address] 02/10/2025 10:00 AM CDT Office Visit [facility] - Cardiology [address] [facility], [facility] [address] [place] [address] Curly Lay MD [address] [facility] [address] [place] [address] documented as of this encounter Visit Diagnoses Not on filedocumented in this encounter Care Teams Emergency Management Director Relationship Specialty Start Date End Date Lisy Olmedo MD PCP - General 04/20/09 05/09/22 documented as of this encounter
--- OUTSIDE RECORDS SUMMARY | 2024-10-11 19:46 | XMS_ITS | Encounter Summary ---
Author Organization [facility] Health Address [address] [facility] [facility] [place] [address] Care Team Providers Care Clay Miller Name Role Phone Lisy Olmedo MD Primary Care Provide r Reason for Visit * Reason Onset Date Comments Cardiac Rehab 03/22/2018 Encounter Details Date Type Department Care Team (Late st Contact Info) Description 03/22/2018 Telephone [facility] [address] [place] [address] Sharyn Chamorro RN Cardiac Rehab Social History Tobacco Use Types Packs/Day Years [...] encounter Miscellaneous Notes * Telephone Encounter - Sharyn Chamorro RN - 03/22/2018 12:38 PM CDT Patient called to cancel Cardiac Rehab due to personal reasons. Patient stated that he would returnto Cardiac Rehab on 03/25/18. documented in this encounter Plan of Treatment Upcoming Encounters Date Type Department Care Team (Late st Contact Info) Description 10/20/2024 8:00 AM AUDIO/VIDEO ENGINEER Office Visit [facility] - Family Medicine [address] [facility] [address] [place] [phone] Kiana Cole MD 604 [place] [address] 11/28/2024 9:00 AM AUDIO/VIDEO ENGINEER Office Visit [facility] - Neurology [address] [facility], [place] [phone] Aline Finch MD [address] [facility] [place] [address] 02/10/2025 10:00 AM CDT Office Visit [facility] - Cardiology [address] [facility], [facility] [address] [place] [address] Curly Lay MD [address] [facility] [address] [place] [address] documented as of this encounter Visit Diagnoses Not on filedocumented in this encounter Care Teams Clay Miller Relationship Specialty Start Date End Date Lisy Olmedo MD PCP - General 04/20/09 05/09/22 documented as of this encounter
--- OUTSIDE RECORDS SUMMARY | 2024-10-11 19:46 | XMS_ITS | Encounter Summary ---
Author Organization [facility] Health Address [address] [facility] [place] [address] Care Team Providers Care Legal Support Specialist Name Role Phone Lisy Olmedo MD Primary Care Provide r Encounter Details Date Type Department Care Team (Late st Contact Info) Description 03/13/2018 Orders Only [facility] Family and Community Medicine [address] [place] [address] Nivia Peñaloza, ROSE-BURSAR [address] [place] [phone] Lipid screening Social History Tobacco Use Types Packs/Day Years [...] st Contact Info) Description 10/20/2024 8:00 AM ASSOCIATE PROFESSOR OF GEOGRAPHY Office Visit [facility] - Family Medicine [address] [facility], [facility] [address] [place] [phone] Kiana Cole MD [address] [place], [place] [phone] 11/28/2024 9:00 AM ASSOCIATE PROFESSOR OF GEOGRAPHY Office Visit [facility] - Neurology [address] [facility], [place] [address] Aline Finch MD [address] [facility] [place] [address] 02/10/2025 10:00 AM CDT Office Visit [facility] - Cardiology [address] [facility], [address] [place] [address] Curly Lay MD [address] [place] [address] documented as of this encounter Procedures Procedure Name Priority Date/Time Associated Diagnosis Comments LIPID PROFILE Routine 03/13/2018 1:37 PM CDT Lipid screening documented in this encounter Results * (ABNORMAL) LIPID PROFILE (03/13/2018 1:37 PM CDT) Cholesterol 247(H) <200 mg/dL [facility] HDL Cholesterol 80 >40 mg/dL [facility] Triglycerides 79 <150 mg/dL [facility] LDL Calculated 149(H) mg/dL (calc) [facility] Comment: Reference range: <100 Desirable range <100 mg/dL for primary prevention; ?? <70 mg/dL for patients with CHD or diabetic patients with > or = 2 CHD risk factors. LDL-C is now calculated using the Odell calculation, which is a validated novel method providing better accuracy than the Friedewald equation in the estimation of LDL-C. Mika EATON et al. RAFFI. 2013;310(19): 8601-9602 (http://education.Kamida.[employer]/faq/MZL137) CHOL/HDLC RATIO 3.1 <5.0 (calc) [facility] Non HDL Cholesterol 167(H) <130 mg/dL (calc) [facility] Comment: For patients with diabetes plus 1 major ASCVD risk factor, treating to a non-HDL-C goal of <100 mg/dL (LDL-C of <70 mg/dL) is considered a therapeutic option. REPORT COMMENT: FASTING:YES Test Performed at: [facility] [address] [place], [place] ??[address] EH PURVIS DO,MPH Blood BLOOD SPECIMEN / Unknown 03/13/2018 1:37 PM CDT 03/13/2018 1:38 PM CDT Lisy Olmedo MD LAB - SENIOR FIELD ENGINEER RY ORDERABLES [facility] [address] [place] [address] documented in this encounter Visit Diagnoses Diagnosis Lipid screening- Primary Screening for lipoid disorders documented in this encounter Care Teams Legal Support Specialist Relationship Specialty Start Date End Date Lisy Olmedo MD PCP - General 04/20/09 05/09/22 documented as of this encounter
--- OUTSIDE RECORDS SUMMARY | 2024-10-11 19:46 | XMS_ITS | Encounter Summary ---
Author Organization [facility] Health Address [address] [facility] [place] [address] Care Team Providers Care Association Executive Name Role Phone Lisy Olmedo MD Primary Care Provide r Reason for Visit * Reason Onset Date Comments Return To Work 02/25/2018 ? Middle of March Encounter Details Date Type Department Care Team (Late st Contact Info) Description 02/25/2018 Telephone [facility] [address] [facility] [address] [place], [place] [phone] Rachell Reed RN Return To Work (? Middle of March) Social History Tobacco Use Types Packs/Day Years [...] encounter Miscellaneous Notes * Telephone Encounter - Rachell Reed RN - 02/28/2018 3:[address] Dennis: I think end of March should be fine, usually driving after 6 weeks is ok but in him I am worried about the size of the vehicle that he will be driving. If he doesn't have any discomfort with driving at six weeks in his regular vehicle then 1-2 weeks after that he can drive the rehab vehicle. - Patient notified of recommendation, he plans to start Cardiac Rehab in our clinic soon and will keep us posted on his status as this timeline is closer. * Telephone Encounter - Rachell Reed RN - 02/25/2018 3:03 PM CDT Received call from patient requesting confirmation from Dr. Dennis when he could return to work. Hehad been planning for middle of March, but patient is not scheduled to return to clinic until May. 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 Patient aware that message sent to Dr. Dennis for review. documented in this encounter Plan of Treatment Upcoming Encounters Date Type Department Care Team (Late st Contact Info) Description 10/20/2024 8:00 AM SOUND EDITOR Office Visit [facility] - Family Medicine [address] [facility] 150 [place] [phone] Kiana Cole MD 604 [place] [address] 11/28/2024 9:00 AM SOUND EDITOR Office Visit [facility] - Neurology [facility] [facility], [facility] [place] [phone] Aline Finch MD [address] [facility] [place] [address] 02/10/2025 10:00 AM CDT Office Visit [facility] - Cardiology [address] [facility], [address] [place] [phone] Curly Lay MD [address] [facility] [address] [place] [address] documented as of this encounter Visit Diagnoses Not on filedocumented in this encounter Care Teams Association Executive Relationship Specialty Start Date End Date Lisy Olmedo MD PCP - General 04/20/09 05/09/22 documented as of this encounter
--- OUTSIDE RECORDS SUMMARY | 2024-10-11 19:46 | XMS_ITS | Encounter Summary ---
Author Organization [facility] Health Address [address] [place] [address] Care Team Providers Care Biometry Teacher Name Role Phone Lisy Olmedo MD Primary Care Provide r Reason for Referral * Home Health Care (Routine) - Closed Specialty Diagnoses / Procedures Referred By Jenna saleem Referred To Contact Diagnoses Status post cardiac surgery Rosendo Fernandez APRN-CNP [address] [place] [id number] Referral ID Status Reason Start Date Expiration Date V isits Requested Visits Authorized [id number] Closed Specialty Services Required 01/25/2018 07/24/2018 1 1 Reason for Visit * Auth/Cert Specialty Diagnoses / Procedures Referred By Jenna saleem Referred To Contact Diagnoses Diagnosis unknown coronary artery disease hypertension Procedures BYPASS GRAFT CORONARY ARTERY (CABG) Referral ID Status Reason Start Date Expiration Date Visits Re quested Visits Authorized [id number] 1 1 Encounter Details Date Type Department Care Team (Latest Contact Info) Description 01/24/2018 6:44 AM CDT - 01/30/2018 6:30 PM CDT Hospital Encounter [address] [address] Fabienne Cardona MD [address] [place] [address] [phone] Conner Blancas MD [address] [place] [address] Cardiothoracic Surgery Discharge Disposition: Home Health Care Svc Social History Tobacco Use Types Packs/Day Years Used Date Smoking Tobacco: Light Smoker Cigars Smokeless Tobacco: Current Comments:3-4 times / month Sex and Gender Information Value Date Recorded Sex Assigned at Not on file Gender Identity Not on file Sexual Orientation Not on file documented as of this encounter Last Filed Vital Signs Vital Sign Reading Time Taken Comments Blood Pressure 119/79 01/30/2018 4:26 PM CDT Pulse 75 01/30/2018 4:26 PM CDT Temperature 36.8 ??C (98.3 ??F) 01/30/2018 4:26 PM CD T Respiratory Rate 18 01/30/2018 4:26 PM CDT Oxygen Saturation 100% 01/30/2018 4:26 PM CDT Inhaled Oxygen Concentration 60% 01/24/2018 4 :18 PM CDT Weight 133.6 kg (294 lb 8 oz) 01/28/2018 7:05 AM CDT Height 193 cm (6' 4 ) 01/24/2018 7:25 AM CDT Body Mass Index 35.85 01/24/2018 7:25 AM CDT documented in this encounter Functional [...] as of this encounter Discharge Summaries * Caryn Zhao PA-C - 01/30/2018 11:18 AM CDT Images from the original note were not included. Physician Discharge Summary Patient ID: Yaya Vazquez [id number] y.o. 1960 Admit date: 01/24/2018 Discharge date and time: 01/30/18, 1400 Admitting Physician: Fabienne Cardona MD Discharge Physician: Fabienne Cardona MD Present on Admission: None Discharge Diagnoses: s/p CABG x3 (MUNIZ to LAD, Radial to OM, SVG to PDA) on 01/24 Admission Condition: fair Discharged Condition: good Indication for Admission: coronary artery disease Hospital Course: Yaya Vazquez is a 57 y.o. male with a PMHx significant for DM who underwent work up for angina was found to have multivessel coronary artery disease who presents this AM for CABG. Today he mentions he feels well, no interval changes since last vist. ?? 01/24/18: The patient underwent a CABG x 3 (MUNIZ to LAD, Radial to OM, SVG to PDA) 01/25/18 POD 1: The pt was extubated yesterday. No acute events over night, did not require any pressors over night. This morning, prior to rounds, the patient was sat up out of bed to the chair. He became hypotensive, with a drop in CI, CVP, and PAPs, with assiciated dizziness. Vaso and Levo were restarted immediately, and a 500 NS bolus was given. The patient was brought back to bed and another 1 L of NS was given. Vaso and Levo were eventually weaned off. The patient was seen again after rounds states he feels much better then this morning. No SOB, pain controlled with pain meds. 01/26/18 POD 2: No acute events overnight. Yesterday, EKG was noted to have some ST changes, cardiology was consulted and they recommended an ECHO. ECHO was done with no wall motion abnormalities. Thepatient hemodynamic status improved s/p 2 L of NS. [place], cordis, A-line, Wires, meds, beltran, were d/c. Transferred to the floor.Started on ASA and Lipitor. 01/27/18 POD 3: No acute events overnight. Right wrist dressing now open to air, areas of surgical glue removed with dressing and steri strips placed in those areas. Heparin was Stopped yesterday due to concern for HIT, HIT negative - Heparin restarted. Pleural Chest tube remains in due to High output. On 2 L nasal cannula. Metoprolol 12.5 mg BID started as well as Lasix 20 mg IV BID. 01/28/18 POD 4: No acute overnight events reported. This morning reports feeling great and very appreciative of all care given. Reports pain is well controlled, no CP or dyspnea, currently on 2 L saturations 99-100. Eager to be discharged but understanding of plan of care as well. L PL CT remains with serosanguinous output, 160 output over last 24 hrs. 01/29/18 POD 5: Yesterday because of elevation in WBC, urine and blood cultures were drawn. UA was clean and CX still set up and blood CX pending. No acute events overnight. Pt in good spirits this morning. Still no substantial BM since POD 1 when had minimal. Denies CP or SOB, now on RA in no distress. Awaiting morning lab work and acceptance/insurance authorization to [facility]. 01/30/18 POD 6: Pt with BM yesterday. WBC 7.3 from 17.4. Blood cx and urine cx all done and negative. PT/OT continue to work with pt and now rec home with home health. Pt is agreeable to this plan. Ptwith no complaints this AM. Reports ambulating with no difficulty. Denies chest pain, dyspnea. Pt is medically stable for discharge. It was explained that follow-up apts have been scheduled with cardiology Dr. Dennis and cardiac surgery, Dr. Cardona. Pt was educated on the physical restrictions and wound care following cardiac surgery. Pt expressed understanding and is eager for discharge home today. Consults: None Significant Diagnostic Studies: Recent Labs Component Name 01/29/18 0620 01/28/18 0917 01/27/18 0654 WBC 7.3 17.4* 9.4 HGB 8.8* 8.7* 8.5* HCT 27.7* 28.5* 27.2* PLT 168 239 143* Recent Labs Component Name 01/30/18 1122 01/30/18 0638 01/29/18 2053 01/29/18 0620 01/28/18 0655 01/27/18 0654 01/24/18 1345 01/24/18 1247 01/24/18 0953 NA - - - - 136 - 136 - 138 - - - - K - - - - - - - - - - 5.2 6.1* 4.6 CL - - - - 97* - 97* - 100 - - - - CO2 - - - - 26 - 30* - 26 - - - - BUN - - - - 12 - 9 - 8 - - - - CREATININE - - - - 1.0 - 0.9 - 0.9 - - - - GLU 138* 148* 194* - 170* - 144* - 129* - - - - CALCIUM - - - - 9.1 - 8.7 - 9.1 - - - - MAGNESIUM - - - - 1.8 - 1.6 - 1.2* - - - - - = values in this interval not displayed. Recent Labs Component Name 01/11/18 1548 PROT 8.2 ALB 3.8 TBILI 0.7 AST 14 ALT 13 ALKPHOS 56 Recent Labs Component Name 01/25/18 0026 01/24/18 1540 01/24/18 1345 01/11/18 1548 INR 1.1 1.2 1.4 0.9 PTT - 35.7 >212.0* 28.6 CXR 01/29: Median sternotomy wires and mediastinal surgical clips are unchanged. ? Mild bibasilar opacities representing airspace disease and/or atelectasis have mildly increased, left greater than right. No pleural effusion or pneumothorax is identified. The cardiomediastinal silhouette is borderline large for this AP view. The visible bony thorax is intact. ?? ECHO 01/25: Limited study for LV function. There is mild concentric left ventricular hypertrophy. The LV cavity size is normal. Left ventricular systolic function is normal without wall motion abnormalities. Estimated LV EF is 55%. Dilated aortic root? 4.1 cm at the sinus of Valsalva. Proximal ascending aorta is 3.4cm. ?? Preop Imaging AMANDO Intra-op 01/24/18: Conclusion: 1. Normal biventricular systolic function 2. LVH 3. No significant valvular heart disease (trivial MR, trivial AI) 4. Normal JING structure and velocities Discharge Exam: Patient Vitals for the past 6 hrs: Temp Pulse Resp BP BP Method 01/30/18 1626 98.3 ??F (36.8 ??C) 75 18 119/79 Automatic 01/30/18 1623 - 89 18 - - 01/30/18 1325 - 82 18 - - 01/30/18 1217 98.7 ??F (37.1 ??C) 81 18 130/72 Automatic General appearance: Awake, alert. Resting in bed. No acute distress. Lungs: clear to auscultation bilaterally. Respirations unlabored. On room air. Chest wall: sternal incision well approximated, no erythema, or drainage. Previous CT sites with noerythema or draiange and healing appropriately. Heart: RRR, normal S1 and S2, no murmur, SR per tele. Abdomen: soft, non-tender, non-distended. Extremities: Warm, well perfused 1 + edema to LE noted. Vein harvest sight to RLE well approximated, no drainage or erythema, with healing ecchymosis along vein harvest tract. R radial artery harvestsite open to air with no erythema or drainage, steri- strips in place. Pulses: DP 2+ symmetric bilaterally Skin: No obvious rashes or lesions. Neurologic: Grossly normal Disposition: Home with Home health Patient Instructions: Medication List START taking these medications furosemide 40 MG tablet Commonly known as: LASIX Take 1 tablet by mouth once daily for 30 days metoprolol tartrate 25 MG tablet Commonly known as: LOPRESSOR Take 1 tablet by mouth 2 times daily for 30 days oxyCODONE-acetaminophen 5-325 MG tablet Commonly known as: PERCOCET Take 1 tablet by mouth every 4 hours as needed for Pain polyethylene glycol 3350 packet Commonly known as: MIRALAX Take 17 g by mouth once daily as needed for Constipation potassium chloride 20 MEQ tablet Commonly known as: KLOR-CON M Take 1 tablet by mouth once daily for 30 days senna-docusate 8.6-50 MG tablet Commonly known as: SENOKOT-S Take 1 tablet by mouth once daily as needed for Constipation CONTINUE taking these medications Aspirin 81 MG atorvastatin 40 MG tablet Commonly known as: LIPITOR blood glucose test strip glipiZIDE CR 24hr 5 MG tablet Commonly known as: GLUCOTROL XL metFORMIN 1000 MG tablet Commonly known as: GLUCOPHAGE One Touch Delica Lancets ONE TOUCH ULTRA MINI W/DEVICE Kit sildenafil 20 MG tablet Commonly known as: REVATIO SITagliptin 100 MG tablet Commonly known as: JANUVIA STOP taking these medications amLODIPine 10 MG tablet Commonly known as: NORVASC carvedilol 6.25 MG tablet Commonly known as: COREG losartan-hydroCHLOROthiazide 100-25 MG tablet Commonly known as: HYZAAR Where to Get Your Medications These medications were sent to [facility] [id number] [facility] [id number] [facility] [id number] ??? furosemide 40 MG tablet ??? metoprolol tartrate 25 MG tablet ??? potassium chloride 20 MEQ tablet You can get these medications from any pharmacy Bring a paper prescription for each of these medications ??? oxyCODONE-acetaminophen 5-325 MG tablet You don't need a prescription for these medications ??? polyethylene glycol 3350 packet ??? senna-docusate 8.6-50 MG tablet Follow-up Information Follow up with Lisy Olmedo MD . Specialty: Family Medicine Why: f/u as needed Contact information: [address] [facility] [phone] Follow up with Follow up with provider . Follow up with Fabienne Cardona MD . Specialty: Cardiothoracic Vascular Surgery Why: February 13 at 09:45 Contact information: [id number] [facility] [address] Follow up with Nehemias Dennis MD . Why: February 22 at 03:15 pm at [address] [facility] [address], [place] [address] Contact information: [address] [facility] [address] Discharge Instructions ?? No lifting over 10 pounds, no pushing or pulling with arms for 2 months after your surgery ?? No driving until cleared by Physician or while taking narcotics ?? Shower daily, no tub baths until cleared by physician ?? Clean wounds daily with soap and water and pat dry, leave wounds open to air ?? If wounds are draining may cover with dry gauze ?? Call [phone] and ask for the Cardiac Surgery Resident community nutrition educator for shortness of breath or signs of infection (fever, chills, and wound redness, warmth, or purulent drainage) Coronary Artery Bypass Graft WHAT YOU SHOULD KNOW: A coronary artery bypass graft (CABG) is open heart surgery to clear blocked arteries in your heart. CABG surgery improves blood flow to your heart by bypassing (sending blood around) the blocked part of an artery. This restores blood flow to your heart and helps prevent a heart attack. AFTER YOU LEAVE: Call 911 for any of the following: You feel lightheaded, short of breath, and have chest pain. You cough up blood. You have a fast heartbeat that flutters. You feel like you are going to faint. Seek care immediately if: Your arm or leg feels warm, tender, and painful. It may look swollen and red. You have numbness or tingling in your arms or legs. You have a severe headache. Contact your healthcare provider if: You have a fever higher than 101??F (38.4??C). You have gained 2 pounds in 24 hours. Your wound is red, swollen, or draining pus. Your signs and symptoms return. You feel depressed. You have questions or concerns about your condition or care. Medicines: You may need any of the following: Prescription pain medicine may be given. Ask how to take this medicine safely. Antiplatelets , such as aspirin, help prevent blood clots. Take your antiplatelet medicine exactly as directed. These medicines make it more likely for you to bleed or bruise. If you are told to takeaspirin, do not take acetaminophen or ibuprofen instead. Cholesterol medicine helps lower cholesterol and lipid levels in your blood. Antibiotics help prevent a bacterial infection. Heart medicine helps strengthen and regulate your heartbeat. Blood pressure medicine helps lower or control your blood pressure. Stool softeners make it easier for you to have a bowel movement and help prevent constipation. Take your medicine as directed. Call your healthcare provider if you think your medicine is not helping or if you have side effects. Tell him if you are allergic to any medicine. Keep a list of the medicines, vitamins, and herbs you take. Include the amounts, and when and why you take them. Bring the list or the pill bottles to follow-up visits. Carry your medicine list with you in case of an emergency. Go to cardiac rehabilitation: Cardiac rehabilitation (rehab) is a program run by specialists who will help you safely strengthen your heart and prevent more heart disease. This plan includes exercise, relaxation, stress management, and heart-healthy nutrition. Healthcare providers will also check to make sure any medicines you take are working. The plan may also include instructions for when you can drive, return to work, and do other normal daily activities. Care for your wound as directed: Carefully wash the wound with soap and water. If you do not have abandage, gently pat the incision dry with a clean towel. If you have a bandage, dry the area and put on a new, clean bandage. Change your bandage if it gets wet or dirty. Prevent another blocked artery: Eat heart healthy foods. You may need to eat foods that are low in salt, fat, or cholesterol. Healthy foods include fruits, vegetables, whole-grain breads, low- fat dairy products, beans, lean meats, and fish. Ask your healthcare provider for more information about a heart healthy diet. Drink liquids as directed. Ask how much liquid to drink each day and which liquids are best for you. Pain medicine can cause hard bowel movements and constipation. Liquids will help soften your bowelmovements and prevent constipation. Do not smoke. Nicotine can damage your heart. Do not use e-cigarettes or smokeless tobacco in placeof cigarettes or to help you quit. They still contain nicotine. Ask your healthcare provider for information if you currently smoke and need help to quit. Maintain a healthy weight. Ask your healthcare provider how much you should weigh. Extra weight canincrease the stress on your heart. Ask him to help you create a weight loss plan if you are overweight. Get a flu shot: To prevent influenza (flu), all adults should get the influenza vaccine every year as soon as it becomes available. Follow up with your healthcare provider as directed: Write down your questions so you remember to ask them during your visits. ?? 2015 [employer] Information is for End User's use only and may not be sold, redistributed or otherwise used for commercial purposes. All illustrations and images included in CareNotes?? are the copyrighted property of [employer] or [employer]. The above information is an school bus aide only. It is not intended as medical advice for individual conditions or treatments. Talk to your doctor, nurse or pharmacist before following any medical regimen to see if it is safe and effective for you. Sternal Precautions WHAT YOU NEED TO KNOW: What are sternal precautions? Sternal precautions are used to help protect your sternum (breastbone) after open chest surgery. Wires are placed during surgery to hold the sternum together as it heals. Sternal precautions help prevent the wires from cutting through the sternum. The precautions also help prevent the sternum from coming apart from an injury, and prevent pain and bleeding. You may need to use the precautions for up to 12 weeks after surgery. Your surgeon will give you specific instructions based on the type of surgery you had. It is important to follow the instructions carefully.An injury to the healing sternum can be life-threatening. What are some general sternal precautions? Start slowly and do more as you get stronger. Pain medicine might make it harder for you to know when to slow down or be careful. Stop immediately if you hear a crunch or pop in your sternum. ?? Protect your sternum. Hug a pillow to your chest or cross your arms over your chest when you laugh, sneeze, or cough. ?? Be careful when you get into or out of a chair or bed. Hug a pillow or cross your arms when you stand or sit. Do not twist as you move. Use only your legs to sit and stand. You may need to use a raised toilet seat if you have trouble standing up without using your arms. Your healthcare provider may teach you to use your elbow for support as you move from lying to sitting. ?? Ask when you may take a bath or shower. You may need to use a bath chair if you have trouble getting into or out of the tub. Do not use a grab bar. ?? Do not lift or carry anything heavier than 5 pounds. For example, a gallon of milk weighs 8 pounds. ?? Keep your arms down as much as possible. Do not put your arms out to the side, behind you, or over your head. Do not let anyone pull your arms to help you move or dress. Do not reach for items. ?? Do not push or pull anything. Examples include a car door or a vacuum cleaners. ?? Do not drive while you are healing. Your surgeon will tell you when it is safe for you to start driving again. How do I care for my surgery wound? Always wash your hands before you care for your wound. Wash your wound as directed. Do not rub the wound as you wash or dry the area. Pat the area dry with a cleantowel. Change the bandages as directed and when they get wet or dirty. Do not smoke: Nicotine can damage blood vessels and make it more difficult to heal. Do not use e-cigarettes or smokeless tobacco in place of cigarettes or to help you quit. They still contain nicotine. Ask your healthcare provider for information if you currently smoke and need help quitting. Call 911 for any of the following: ?? You have sudden pain in your sternum and hear a crunch or pop. ?? You have bleeding that does not stop even after you apply pressure for 5 minutes. When should I seek immediate care? ?? You hear crunching or grinding in your sternum. ?? You have signs of an infection, such as a fever, red or warm skin, or pus in the surgery wound. When should I contact my healthcare provider? ?? You continue to feel pain, even after you take your pain medicine. ?? You have new or worsening pain, or any pain with movement. ?? You have questions or concerns about your condition or care. CARE AGREEMENT: You have the right to help plan your care. Learn about your health condition and how it may be treated. Discuss treatment options with your caregivers to decide what care you want to receive. You always have the right to refuse treatment. The above information is an school bus aide only. It is not intended as medical advice for individual conditions or treatments. Talk to your doctor, nurse or pharmacist before following any medical regimen to see if it is safe and effective for you. ?? 2017 [employer] Information is for End User's use only and may not be sold, redistributed or otherwise used for commercial purposes. All illustrations and images included in CareNotes?? are the copyrighted property of [employer] or [employer]. Heart Healthy Diet LARRIMAN HELPER: A heart healthy diet is an eating plan low in total fat, unhealthy fats, and sodium (salt). A hearthealthy diet helps decrease your risk for heart disease and stroke. Limit the amount of fat you eatto 25% to 35% of your total daily calories. Limit sodium to less than 2,300 mg each day. Healthy fats: Healthy fats can help improve cholesterol levels. The risk for heart disease is decreased when cholesterol levels are normal. Choose healthy fats, such as the following: ?? Unsaturated fat is found in foods such as soybean, canola, olive, corn, and safflower oils. It is also found in soft tub margarine that is made with liquid vegetable oil. ?? [place]-3 fat is found in certain fish, such as salmon, tuna, and trout, and in walnuts and flaxseed. Unhealthy fats: Unhealthy fats can cause unhealthy cholesterol levels in your blood and increase your risk of heart disease. Limit unhealthy fats, such as the following: ?? Cholesterol is found in animal foods, such as eggs and lobster, and in dairy products made from whole milk. Limit cholesterol to less than 300 milligrams (mg) each day. You may need to limit cholesterol to 200 mg each day if you have heart disease. ?? Saturated fat is found in meats, such as prabhakar and hamburger. It is also found in chicken or turkey skin, whole milk, and butter. Limit saturated fat to less than 7% of your total daily calories. Limit saturated fat to less than 6% if you have heart disease or are at increased risk for it. ?? Trans fat is found in packaged foods, such as potato chips and cookies. It is also in hard margarine, some fried foods, and shortening. Avoid trans fats as much as possible. Heart healthy foods and drinks to include: Ask your dietitian or healthcare provider how many servings to have from each of the following food groups: ?? Grains: ?? Whole-wheat breads, cereals, and pastas, and brown rice ?? Low-fat, low-sodium crackers and chips ?? Vegetables: ?? Broccoli, green beans, green peas, and spinach ?? Collards, kale, and muniz beans ?? Carrots, sweet potatoes, tomatoes, and peppers ?? Canned vegetables with no salt added ?? Fruits: ?? Bananas, peaches, pears, and pineapple ?? Grapes, raisins, and dates ?? Oranges, tangerines, grapefruit, orange juice, and grapefruit juice ?? Apricots, mangoes, melons, and papaya ?? Raspberries and strawberries ?? Canned fruit with no added sugar ?? Low-fat dairy products: ?? Nonfat (skim) milk, 1% milk, and low-fat almond, cashew, or soy milks fortified with calcium ?? Low-fat cheese, regular or frozen yogurt, and cottage cheese ?? Meats and proteins , such as lean cuts of beef and pork (loin, leg, round), skinless chicken andturkey, legumes, soy products, egg whites, and nuts Foods and drinks to limit or avoid: Ask your dietitian or healthcare provider about these and otherfoods that are high in unhealthy fat, sodium, and sugar: ?? Snack or packaged foods , such as frozen dinners, cookies, macaroni and cheese, and cereals withmore than 300 mg of sodium per serving ?? Canned or dry mixes for cakes, soups, sauces, or gravies ?? Vegetables with added sodium , such as instant potatoes, vegetables with added sauces, or regular canned vegetables ?? Other foods high in sodium , such as ketchup, barbecue sauce, salad dressing, pickles, olives, soy sauce, and miso ?? High-fat dairy foods such as whole or 2% milk, cream cheese, or sour cream, and cheeses ?? High-fat protein foods such as high-fat cuts of beef (T-bone steaks, ribs), chicken or turkey with skin, and organ meats, such as liver ?? Cured or smoked meats , such as hot dogs, prabhakar, and sausage ?? Unhealthy fats and oils , such as butter, stick margarine, shortening, and cooking oils such as coconut or palm oil ?? Food and drinks high in sugar , such as soft drinks (soda), sports drinks, sweetened tea, candy,cake, cookies, pies, and doughnuts Other diet guidelines to follow: ?? Eat more foods containing omega-3 fats. Eat fish high in omega-3 fats at least 2 times a week. ?? Limit alcohol. Too much alcohol can damage your heart and raise your blood pressure. Women should limit alcohol to 1 drink a day. Men should limit alcohol to 2 drinks a day. A drink of alcohol is 12 ounces of beer, 5 ounces of wine, or 1?? ounces of liquor. ?? Choose low-sodium foods. High-sodium foods can lead to high blood pressure. Add little or no salt to food you prepare. Use herbs and spices in place of salt. ?? Eat more fiber to help lower cholesterol levels. Eat at least 5 servings of fruits and vegetables each day. Eat 3 ounces of whole-grain foods each day. Legumes (beans) are also a good source of fiber. ?? Eat regular meals. Do not skip meals. Skipping meals can lead to overeating later in the day. This can make it harder for you to lose weight. Eat a healthy snack in place of a meal if you do not have time to eat a regular meal. Talk with a dietitian to help you create a meal plan and schedule that is right for you. Lifestyle guidelines: ?? Do not smoke. Nicotine and other chemicals in cigarettes and cigars can cause lung and heart damage. Ask your healthcare provider for information if you currently smoke and need help to quit. E-cigarettes or smokeless tobacco still contain nicotine. Talk to your healthcare provider before you use these products. ?? Exercise regularly to help you maintain a healthy weight and improve your blood pressure and cholesterol levels. Regular exercise can also decrease your risk for heart problems. Ask your healthcare provider about the best exercise plan for you. Do not start an exercise program without asking your healthcare provider. Follow up with your healthcare provider as directed: Write down your questions so you remember to ask them during your visits. ?? 2017 [employer] Information is for End User's use only and may not be sold, redistributed or otherwise used for commercial purposes. All illustrations and images included in CareNotes?? are the copyrighted property of [employer] or [employer]. The above information is an school bus aide only. It is not intended as medical advice for individual conditions or treatments. Talk to your doctor, nurse or pharmacist before following any medical regimen to see if it is safe and effective for you. Signed: Caryn Zhao PA-C 01/30/2018 Associated attestation - Fabienne Cardona MD - 01/30/2018 10:17 PM CDT As above. Did well s/p CABG. Follow up in clinic in 2 weeks. Fabienne Cardona MD 01/30/2018 10:17 PM documented in this encounter Discharge Instructions * Discharge Instructions* Ruthann Becker RN - 01/30/2018 3:03 PM CDT Images from the original note were not included. ?? No lifting over 10 pounds, no pushing or pulling with arms for 2 months after your surgery ?? No driving until cleared by Physician or while taking narcotics ?? Shower daily, no tub baths until cleared by physician ?? Clean wounds daily with soap and water and pat dry, leave wounds open to air ?? If wounds are draining may cover with dry gauze ?? Call [phone] and ask for the Cardiac Surgery Resident community nutrition educator for shortness of breath or signs of infection (fever, chills, and wound redness, warmth, or purulent drainage) Coronary Artery Bypass Graft WHAT YOU SHOULD KNOW: A coronary artery bypass graft (CABG) is open heart surgery to clear blocked arteries in your heart. CABG surgery improves blood flow to your heart by bypassing (sending blood around) the blocked part of an artery. This restores blood flow to your heart and helps prevent a heart attack. AFTER YOU LEAVE: Call 911 for any of the following: You feel lightheaded, short of breath, and have chest pain. You cough up blood. You have a fast heartbeat that flutters. You feel like you are going to faint. Seek care immediately if: Your arm or leg feels warm, tender, and painful. It may look swollen and red. You have numbness or tingling in your arms or legs. You have a severe headache. Contact your healthcare provider if: You have a fever higher than 101??F (38.4??C). You have gained 2 pounds in 24 hours. Your wound is red, swollen, or draining pus. Your signs and symptoms return. You feel depressed. You have questions or concerns about your condition or care. Medicines: You may need any of the following: Prescription pain medicine may be given. Ask how to take this medicine safely. Antiplatelets , such as aspirin, help prevent blood clots. Take your antiplatelet medicine exactly as directed. These medicines make it more likely for you to bleed or bruise. If you are told to takeaspirin, do not take acetaminophen or ibuprofen instead. Cholesterol medicine helps lower cholesterol and lipid levels in your blood. Antibiotics help prevent a bacterial infection. Heart medicine helps strengthen and regulate your heartbeat. Blood pressure medicine helps lower or control your blood pressure. Stool softeners make it easier for you to have a bowel movement and help prevent constipation. Take your medicine as directed. Call your healthcare provider if you think your medicine is not helping or if you have side effects. Tell him if you are allergic to any medicine. Keep a list of the medicines, vitamins, and herbs you take. Include the amounts, and when and why you take them. Bring the list or the pill bottles to follow-up visits. Carry your medicine list with you in case of an emergency. Go to cardiac rehabilitation: Cardiac rehabilitation (rehab) is a program run by specialists who will help you safely strengthen your heart and prevent more heart disease. This plan includes exercise, relaxation, stress management, and heart-healthy nutrition. Healthcare providers will also check to make sure any medicines you take are working. The plan may also include instructions for when you can drive, return to work, and do other normal daily activities. Care for your wound as directed: Carefully wash the wound with soap and water. If you do not have abandage, gently pat the incision dry with a clean towel. If you have a bandage, dry the area and put on a new, clean bandage. Change your bandage if it gets wet or dirty. Prevent another blocked artery: Eat heart healthy foods. You may need to eat foods that are low in salt, fat, or cholesterol. Healthy foods include fruits, vegetables, whole-grain breads, low- fat dairy products, beans, lean meats, and fish. Ask your healthcare provider for more information about a heart healthy diet. Drink liquids as directed. Ask how much liquid to drink each day and which liquids are best for you. Pain medicine can cause hard bowel movements and constipation. Liquids will help soften your bowelmovements and prevent constipation. Do not smoke. Nicotine can damage your heart. Do not use e-cigarettes or smokeless tobacco in placeof cigarettes or to help you quit. They still contain nicotine. Ask your healthcare provider for information if you currently smoke and need help to quit. Maintain a healthy weight. Ask your healthcare provider how much you should weigh. Extra weight canincrease the stress on your heart. Ask him to help you create a weight loss plan if you are overweight. Get a flu shot: To prevent influenza (flu), all adults should get the influenza vaccine every year as soon as it becomes available. Follow up with your healthcare provider as directed: Write down your questions so you remember to ask them during your visits. ?? 2014 [employer]. Information is for End User's use only and may not be sold, redistributed or otherwise used for commercial purposes. All illustrations and images included in CareNotes?? are the copyrighted property of [employer]. or [employer]. The above information is an school bus aide only. It is not intended as medical advice for individual conditions or treatments. Talk to your doctor, nurse or pharmacist before following any medical regimen to see if it is safe and effective for you. Sternal Precautions WHAT YOU NEED TO KNOW: What are sternal precautions? Sternal precautions are used to help protect your sternum (breastbone) after open chest surgery. Wires are placed during surgery to hold the sternum together as it heals. Sternal precautions help prevent the wires from cutting through the sternum. The precautions also help prevent the sternum from coming apart from an injury, and prevent pain and bleeding. You may need to use the precautions for up to 12 weeks after surgery. Your surgeon will give you specific instructions based on the type of surgery you had. It is important to follow the instructions carefully.An injury to the healing sternum can be life-threatening. What are some general sternal precautions? Start slowly and do more as you get stronger. Pain medicine might make it harder for you to know when to slow down or be careful. Stop immediately if you hear a crunch or pop in your sternum. ?? Protect your sternum. Hug a pillow to your chest or cross your arms over your chest when you laugh, sneeze, or cough. ?? Be careful when you get into or out of a chair or bed. Hug a pillow or cross your arms when you stand or sit. Do not twist as you move. Use only your legs to sit and stand. You may need to use a raised toilet seat if you have trouble standing up without using your arms. Your healthcare provider may teach you to use your elbow for support as you move from lying to sitting. ?? Ask when you may take a bath or shower. You may need to use a bath chair if you have trouble getting into or out of the tub. Do not use a grab bar. ?? Do not lift or carry anything heavier than 5 pounds. For example, a gallon of milk weighs 8 pounds. ?? Keep your arms down as much as possible. Do not put your arms out to the side, behind you, or over your head. Do not let anyone pull your arms to help you move or dress. Do not reach for items. ?? Do not push or pull anything. Examples include a car door or a vacuum cleaners. ?? Do not drive while you are healing. Your surgeon will tell you when it is safe for you to start driving again. How do I care for my surgery wound? Always wash your hands before you care for your wound. Wash your wound as directed. Do not rub the wound as you wash or dry the area. Pat the area dry with a cleantowel. Change the bandages as directed and when they get wet or dirty. Do not smoke: Nicotine can damage blood vessels and make it more difficult to heal. Do not use e-cigarettes or smokeless tobacco in place of cigarettes or to help you quit. They still contain nicotine. Ask your healthcare provider for information if you currently smoke and need help quitting. Call 911 for any of the following: ?? You have sudden pain in your sternum and hear a crunch or pop. ?? You have bleeding that does not stop even after you apply pressure for 5 minutes. When should I seek immediate care? ?? You hear crunching or grinding in your sternum. ?? You have signs of an infection, such as a fever, red or warm skin, or pus in the surgery wound. When should I contact my healthcare provider? ?? You continue to feel pain, even after you take your pain medicine. ?? You have new or worsening pain, or any pain with movement. ?? You have questions or concerns about your condition or care. CARE AGREEMENT: You have the right to help plan your care. Learn about your health condition and how it may be treated. Discuss treatment options with your caregivers to decide what care you want to receive. You always have the right to refuse treatment. The above information is an school bus aide only. It is not intended as medical advice for individual conditions or treatments. Talk to your doctor, nurse or pharmacist before following any medical regimen to see if it is safe and effective for you. ?? 2017 [employer] Information is for End User's use only and may not be sold, redistributed or otherwise used for commercial purposes. All illustrations and images included in CareNotes?? are the copyrighted property of [employer] or [employer]. Heart Healthy Diet LARRIMAN HELPER: A heart healthy diet is an eating plan low in total fat, unhealthy fats, and sodium (salt). A hearthealthy diet helps decrease your risk for heart disease and stroke. Limit the amount of fat you eatto 25% to 35% of your total daily calories. Limit sodium to less than 2,300 mg each day. Healthy fats: Healthy fats can help improve cholesterol levels. The risk for heart disease is decreased when cholesterol levels are normal. Choose healthy fats, such as the following: ?? Unsaturated fat is found in foods such as soybean, canola, olive, corn, and safflower oils. It is also found in soft tub margarine that is made with liquid vegetable oil. ?? [place]-3 fat is found in certain fish, such as salmon, tuna, and trout, and in walnuts and flaxseed. Unhealthy fats: Unhealthy fats can cause unhealthy cholesterol levels in your blood and increase your risk of heart disease. Limit unhealthy fats, such as the following: ?? Cholesterol is found in animal foods, such as eggs and lobster, and in dairy products made from whole milk. Limit cholesterol to less than 300 milligrams (mg) each day. You may need to limit cholesterol to 200 mg each day if you have heart disease. ?? Saturated fat is found in meats, such as prabhakar and hamburger. It is also found in chicken or turkey skin, whole milk, and butter. Limit saturated fat to less than 7% of your total daily calories. Limit saturated fat to less than 6% if you have heart disease or are at increased risk for it. ?? Trans fat is found in packaged foods, such as potato chips and cookies. It is also in hard margarine, some fried foods, and shortening. Avoid trans fats as much as possible. Heart healthy foods and drinks to include: Ask your dietitian or healthcare provider how many servings to have from each of the following food groups: ?? Grains: ?? Whole-wheat breads, cereals, and pastas, and brown rice ?? Low-fat, low-sodium crackers and chips ?? Vegetables: ?? Broccoli, green beans, green peas, and spinach ?? Collards, kale, and muniz beans ?? Carrots, sweet potatoes, tomatoes, and peppers ?? Canned vegetables with no salt added ?? Fruits: ?? Bananas, peaches, pears, and pineapple ?? Grapes, raisins, and dates ?? Oranges, tangerines, grapefruit, orange juice, and grapefruit juice ?? Apricots, mangoes, melons, and papaya ?? Raspberries and strawberries ?? Canned fruit with no added sugar ?? Low-fat dairy products: ?? Nonfat (skim) milk, 1% milk, and low-fat almond, cashew, or soy milks fortified with calcium ?? Low-fat cheese, regular or frozen yogurt, and cottage cheese ?? Meats and proteins , such as lean cuts of beef and pork (loin, leg, round), skinless chicken andturkey, legumes, soy products, egg whites, and nuts Foods and drinks to limit or avoid: Ask your dietitian or healthcare provider about these and otherfoods that are high in unhealthy fat, sodium, and sugar: ?? Snack or packaged foods , such as frozen dinners, cookies, macaroni and cheese, and cereals withmore than 300 mg of sodium per serving ?? Canned or dry mixes for cakes, soups, sauces, or gravies ?? Vegetables with added sodium , such as instant potatoes, vegetables with added sauces, or regular canned vegetables ?? Other foods high in sodium , such as ketchup, barbecue sauce, salad dressing, pickles, olives, soy sauce, and miso ?? High-fat dairy foods such as whole or 2% milk, cream cheese, or sour cream, and cheeses ?? High-fat protein foods such as high-fat cuts of beef (T-bone steaks, ribs), chicken or turkey with skin, and organ meats, such as liver ?? Cured or smoked meats , such as hot dogs, prabhakar, and sausage ?? Unhealthy fats and oils , such as butter, stick margarine, shortening, and cooking oils such as coconut or palm oil ?? Food and drinks high in sugar , such as soft drinks (soda), sports drinks, sweetened tea, candy,cake, cookies, pies, and doughnuts Other diet guidelines to follow: ?? Eat more foods containing omega-3 fats. Eat fish high in omega-3 fats at least 2 times a week. ?? Limit alcohol. Too much alcohol can damage your heart and raise your blood pressure. Women should limit alcohol to 1 drink a day. Men should limit alcohol to 2 drinks a day. A drink of alcohol is 12 ounces of beer, 5 ounces of wine, or 1?? ounces of liquor. ?? Choose low-sodium foods. High-sodium foods can lead to high blood pressure. Add little or no salt to food you prepare. Use herbs and spices in place of salt. ?? Eat more fiber to help lower cholesterol levels. Eat at least 5 servings of fruits and vegetables each day. Eat 3 ounces of whole-grain foods each day. Legumes (beans) are also a good source of fiber. ?? Eat regular meals. Do not skip meals. Skipping meals can lead to overeating later in the day. This can make it harder for you to lose weight. Eat a healthy snack in place of a meal if you do not have time to eat a regular meal. Talk with a dietitian to help you create a meal plan and schedule that is right for you. Lifestyle guidelines: ?? Do not smoke. Nicotine and other chemicals in cigarettes and cigars can cause lung and heart damage. Ask your healthcare provider for information if you currently smoke and need help to quit. E-cigarettes or smokeless tobacco still contain nicotine. Talk to your healthcare provider before you use these products. ?? Exercise regularly to help you maintain a healthy weight and improve your blood pressure and cholesterol levels. Regular exercise can also decrease your risk for heart problems. Ask your healthcare provider about the best exercise plan for you. Do not start an exercise program without asking your healthcare provider. Follow up with your healthcare provider as directed: Write down your questions so you remember to ask them during your visits. ?? 2017 [employer] Information is for End User's use only and may not be sold, redistributed or otherwise used for commercial purposes. All illustrations and images included in CareNotes?? are the copyrighted property of [employer]. or [employer]. The above information is an school bus aide only. It is not intended as medical advice for individual conditions or treatments. Talk to your doctor, nurse or pharmacist before following any medical regimen to see if it is safe and effective for you. Furosemide (By mouth) Furosemide (oloz-LU-zt-mide) Treats fluid retention (edema) and high blood pressure. This medicine is a diuretic (water pill). Brand Name(s): Active-Medicated Specimen Collection Kit, Diuscreen Multi-Drug Medicated Test Kit, Lasix, RX-Specimen Collection Kit, Specimen Collection Kit There may be other brand names for this medicine. When This Medicine Should Not Be Used: This medicine is not right for everyone. Do not use it if you had an allergic reaction to furosemide. How to Use This Medicine: Liquid, Tablet ?? Take your medicine as directed. Your dose may need to be changed several times to find what works best for you. ?? You may take this medicine with food if it upsets your stomach. ?? Oral liquid: Measure the oral liquid medicine with a marked measuring spoon, oral syringe, or medicine cup. ?? Tablet: Swallow the tablet whole. Do not crush, break, or chew it. ?? Missed dose: Take a dose as soon as you remember. If it is almost time for your next dose, wait until then and take a regular dose. Do not take extra medicine to make up for a missed dose. ?? Store the medicine in a closed container at room temperature, away from heat, moisture, and direct light. Drugs and Foods to Avoid: Ask your doctor or pharmacist before using any other medicine, including qatd-iow-nyaljpl medicines, vitamins, and herbal products. ?? Some medicines can affect how furosemide works. Tell your doctor if you are also using any of the following: ?? Cisplatin, cyclosporine, digoxin, ethacrynic acid, licorice, lithium, methotrexate, or phenytoin ?? Adrenocorticotropic hormone (ACTH) ?? Laxative ?? Medicine to treat an infection ?? NSAID pain or arthritis medicine (including aspirin, diclofenac, ibuprofen, indomethacin, naproxen) ?? Other blood pressure medicines ?? Steroid medicine (including dexamethasone, hydrocortisone, methylprednisolone, prednisolone, prednisone) ?? Thyroid medicine ?? If you also take sucralfate, allow at least 2 hours between the time you take furosemide and thetime you take sucralfate. ?? Alcohol, narcotic pain medicine, or sleeping pills may cause you to feel more lightheaded, dizzy, or faint when used with this medicine. Warnings While Using This Medicine: ?? Tell your doctor if you are or , or if you have kidney disease, liver disease (including cirrhosis), diabetes, gout, low blood pressure, lupus, an enlarged prostate, trouble urinating, or an allergy to sulfa drugs. Tell your doctor if you are on a low-salt diet. ?? This medicine may cause the following problems: ?? Low levels of minerals in your blood, such as potassium and sodium ?? Blood sugar level changes ?? Hearing problems ?? Make sure any doctor or dentist who treats you knows that you are using this medicine. ?? This medicine could lower your blood pressure too much, especially when you first use it or if you are dehydrated. Stand or sit up slowly if you feel lightheaded or dizzy. ?? This medicine may make your skin more sensitive to sunlight. Wear sunscreen. Do not use sunlampsor tanning beds. ?? Your doctor will do lab tests at regular visits to check on the effects of this medicine. Keep all appointments. ?? Keep all medicine out of the reach of children. Never share your medicine with anyone. Possible Side Effects While Using This Medicine: Call your doctor right away if you notice any of these side effects: ?? Allergic reaction: Itching or hives, swelling in your face or hands, swelling or tingling in your mouth or throat, chest tightness, trouble breathing ?? Blistering, peeling, red skin rash ?? Confusion, weakness, muscle twitching ?? Dry mouth, increased thirst, muscle cramps, uneven heartbeat ?? Sudden and severe stomach pain, nausea, vomiting, fever, lightheadedness ?? Hearing loss, ringing in the ears ?? Lightheadedness, dizziness, fainting ?? Severe diarrhea ?? Unusual bleeding or bruising ?? Yellow skin or eyes If you notice these less serious side effects, talk with your doctor: ?? Loss of appetite, stomach cramps If you notice other side effects that you think are caused by this medicine, tell your doctor. Call your doctor for medical advice about side effects. You may report side effects to FDA at 4-854-KPL-8046 ?? 2017 [employer] Information is for End User's use only and may not be sold, redistributed or otherwise used for commercial purposes. The above information is an school bus aide only. It is not intended as medical advice for individual conditions or treatments. Talk to your doctor, nurse or pharmacist before following any medical regimen to see if it is safe and effective for you. Potassium Supplement (By mouth) Treats potassium loss from the body. Brand Name(s): Effer-K, K-99, K-Bicarb, K-Effervescent, K-Glucon, K-Tab, K- Vescent, Klor-Con, Klor-Con 10, Klor-Con 8, Klor-Con M10, Klor-Con M15, Klor-Con M20, Klor-Con Sprinkle, Klor-Con/EF There may be other brand names for this medicine. When This Medicine Should Not Be Used: This medicine is not right for everyone. Do not use it if you had an allergic reaction to potassiumor if you have severe kidney disease. How to Use This Medicine: Granule, Kit, Tablet, Powder, Fizzy Tablet, Long Acting Tablet, Long Acting Capsule, Liquid, Capsule ?? Your doctor will tell you how much medicine to use. Do not use more than directed. ?? Follow the instructions on the medicine label if you are using this medicine without a prescription. ?? Take with food or right after eating. ?? Powder or effervescent tablet: Mix with water before using. Most powders and tablets must be mixed with at least 4 ounces (1/2 cup) of water or juice, but your specific medicine might have different directions. Drink the mixture right after you mix it. ?? Extended-release tablet or capsule: Swallow with a full glass of water. Do not chew or crush. ?? Measure the oral liquid medicine with a marked measuring spoon, oral syringe, or medicine cup. ?? Carefully follow your doctor's instructions about any special diet. ?? Missed dose: Take a dose as soon as you remember. If it is almost time for your next dose, wait until then and take a regular dose. Do not take extra medicine to make up for a missed dose. ?? Store the medicine in a closed container at room temperature, away from heat, moisture, and direct light. Drugs and Foods to Avoid: Ask your doctor or pharmacist before using any other medicine, including osmd-zem-ngqqfpg medicines, vitamins, and herbal products. ?? Some foods and medicines can affect how potassium supplements work. Tell your doctor if you are using any of the following: ?? Diuretic (water pill) ?? SHON inhibitor blood pressure medicine ?? Other medicine that contains potassium ?? Salt substitute that contains potassium Warnings While Using This Medicine: ?? Tell your doctor if you are or , or if you have kidney disease, diabetes, heart disease, or digestion problems or trouble swallowing. ?? Your doctor will do lab tests at regular visits to check on the effects of this medicine. Keep all appointments. ?? Keep all medicine out of the reach of children. Never share your medicine with anyone. Possible Side Effects While Using This Medicine: Call your doctor right away if you notice any of these side effects: ?? Allergic reaction: Itching or hives, swelling in your face or hands, swelling or tingling in your mouth or throat, chest tightness, trouble breathing ?? Bloody or black, tarry stools ?? Confusion, weakness, uneven heartbeat, trouble breathing, numbness in your hands, feet, or lips ?? Severe stomach pain or vomiting If you notice these less serious side effects, talk with your doctor: ?? Mild nausea, diarrhea, vomiting, gas If you notice other side effects that you think are caused by this medicine, tell your doctor. Call your doctor for medical advice about side effects. You may report side effects to FDA at 8-930-RIR-2670 ?? 2017 [employer] Information is for End User's use only and may not be sold, redistributed or otherwise used for commercial purposes. The above information is an school bus aide only. It is not intended as medical advice for individual conditions or treatments. Talk to your doctor, nurse or pharmacist before following any medical regimen to see if it is safe and effective for you. Oxycodone/Acetaminophen (By mouth) Acetaminophen (s-safo-q-MIN-oh-fen), Oxycodone Hydrochloride (mz-m-NZA-done twi-xxgj-GPHJ-ben) Treats moderate to moderately severe pain. This medicine is a narcotic pain reliever. Brand Name(s): Endocet, Percocet, Primlev, Xartemis XR There may be other brand names for this medicine. When This Medicine Should Not Be Used: This medicine is not right for everyone. Do not use it if you had an allergic reaction to acetaminophen or oxycodone, or if you have serious breathing problems or paralytic ileus. How to Use This Medicine: Capsule, Liquid, Tablet, Long Acting Tablet ?? Your doctor will tell you how much medicine to use. Do not use more than directed. ?? An overdose can be dangerous. Follow directions carefully so you do not get too much medicine atone time. ?? Oral liquid: Measure the oral liquid medicine with a marked measuring spoon, oral syringe, or medicine cup. ?? Swallow the extended-release tablet whole. Do not crush, break, or chew it. Do not lick or wet the tablet before placing it in your mouth. Do not give this medicine through a feeding tube. ?? This medicine should come with a Medication Guide. Ask your pharmacist for a copy if you do not have one. ?? Missed dose: If you miss a dose of this medicine, skip the missed dose and go back to your regular dosing schedule. Do not double doses. ?? Store the medicine in a closed container at room temperature, away from heat, moisture, and direct light. Ask your pharmacist about the best way to dispose of medicine you do not use. Drugs and Foods to Avoid: Ask your doctor or pharmacist before using any other medicine, including ikdk-djd-bpoxwws medicines, vitamins, and herbal products. ?? Do not use Xartemis??? XR if you are using or have used an MAO inhibitor in the past 14 days. ?? Some medicines can affect how this medicine works. Tell your doctor if you are using any of the following: ?? Carbamazepine, erythromycin, ketoconazole, lamotrigine, mirtazapine, naltrexone, phenytoin, propranolol, rifampin, ritonavir, tramadol, trazodone, or zidovudine ?? control pills ?? Diuretic (water pill) ?? Medicine to treat depression ?? Phenothiazine medicine ?? Triptan medicine to treat migraine headaches ?? Do not drink alcohol while you are using this medicine. Acetaminophen can damage your liver, andalcohol can increase this risk. Do not take acetaminophen without asking your doctor if you have 3 or more drinks of alcohol every day. ?? Tell your doctor if you use anything else that makes you sleepy. Some examples are allergy medicine, narcotic pain medicine, and alcohol. Tell your doctor if you are using buprenorphine, butorphanol, nalbuphine, pentazocine, a benzodiazepine, or a muscle relaxer. Warnings While Using This Medicine: ?? Tell your doctor if you are or , or if you have kidney disease, liver disease, heart disease, low blood pressure, breathing problems or lung disease (such as asthma, COPD), thyroid problems, [place] disease, pancreas or gallbladder problems, prostate problems, trouble urinating, or a stomach problems, or a history of head injury or brain damage, seizures, or alcohol or drug abuse. Tell your doctor if you are allergic to codeine. ?? This medicine may cause the following problems: ?? High risk of overdose, which can lead to ?? Respiratory depression (serious breathing problem that can be life-threatening) ?? Liver problems ?? Serious skin reactions ?? Serotonin syndrome (when used with certain medicines) ?? This medicine may make you dizzy or drowsy. Do not drive or do anything that could be dangerous until you know how this medicine affects you. Sit or lie down if you feel dizzy. Stand up carefully. ?? This medicine contains acetaminophen. Read the labels of all other medicines you are using to see if they also contain acetaminophen, or ask your doctor or pharmacist. Do not use more than 4 grams(4,000 milligrams) total of acetaminophen in one day. ?? This medicine can be habit-forming. Do not use more than your prescribed dose. Call your doctor if you think your medicine is not working. ?? Do not stop using this medicine suddenly. Your doctor will need to slowly decrease your dose before you stop it completely. ?? This medicine could cause infertility. Talk with your doctor before using this medicine if you plan to have children. ?? This medicine may cause constipation, especially with long-term use. Ask your doctor if you should use a laxative to prevent and treat constipation. ?? Keep all medicine out of the reach of children. Never share your medicine with anyone. Possible Side Effects While Using This Medicine: Call your doctor right away if you notice any of these side effects: ?? Allergic reaction: Itching or hives, swelling in your face or hands, swelling or tingling in your mouth or throat, chest tightness, trouble breathing ?? Anxiety, restlessness, fast heartbeat, fever, muscle spasms, twitching, diarrhea, seeing or hearing things that are not there ?? Blistering, peeling, red skin rash ?? Blue lips, fingernails, or skin ?? Dark urine or pale stools, loss of appetite, stomach pain, yellow skin or eyes ?? Extreme weakness, shallow breathing, uneven heartbeat, seizures, sweating, or cold or clammy skin ?? Severe confusion, lightheadedness, dizziness, or fainting ?? Severe constipation, nausea, or vomiting ?? Trouble breathing or slow breathing If you notice these less serious side effects, talk with your doctor: ?? Headache ?? Mild constipation, nausea, or vomiting ?? Mild sleepiness or drowsiness If you notice other side effects that you think are caused by this medicine, tell your doctor. Call your doctor for medical advice about side effects. You may report side effects to FDA at 2-763-JIQ-9347 ?? 2017 [employer] Information is for End User's use only and may not be sold, redistributed or otherwise used for commercial purposes. The above information is an school bus aide only. It is not intended as medical advice for individual conditions or treatments. Talk to your doctor, nurse or pharmacist before following any medical regimen to see if it is safe and effective for you. Polyethylene Glycol 3350 (By mouth) Polyethylene Glycol (vzj-wq-IXY-i-delia GLYE-kol) Treats occasional constipation. Brand Name(s): Equate ClearLax, GaviLAX, Gialax, [facility] Clear Lax, [facility] Clearlax, Health[facility] Polyethylene Glycol 3350, Laxative, [employer] ClearLax, MiraLAX, PCP 100, Poly-Prep, Purelax, [employer] Clearmax, [facility] ClearLax, [facility] Polyethylene Glycol 3350 There may be other brand names for this medicine. When This Medicine Should Not Be Used: You should not use this medicine if you have had an allergic reaction to polyethylene glycol, or ifyou have signs of a bowel obstruction (nausea, vomiting, stomach pain or bloating). How to Use This Medicine: Powder, Liquid, Packet ?? Your doctor will tell you how much of this medicine to take and how often. Do not take more medicine or take it more often than your doctor tells you to. This medicine is not for long-term use. ?? Always dissolve the powder in a full glass (8 ounces) of water, juice, soda, coffee, or tea before swallowing it. If you need to measure your medicine, use a marked measuring cup or spoon. ?? Measure the oral liquid medicine with a marked measuring spoon, oral syringe, or medicine cup. ?? It may take 2 days or longer for this medicine to help you have a bowel movement. If a dose is missed: ?? If you miss a dose or forget to take your medicine, take it as soon as you can. If it is almost time for your next dose, wait until then to take the medicine and skip the missed dose. ?? Do not use extra medicine to make up for a missed dose. How to Store and Dispose of This Medicine: ?? Store the medicine at room temperature in a closed container, away from heat, moisture, and direct light. ?? Keep all medicine out of the reach of children and never share your medicine with anyone. Drugs and Foods to Avoid: Ask your doctor or pharmacist before using any other medicine, including gnqi-wiy-czawgti medicines, vitamins, and herbal products. Warnings While Using This Medicine: ?? Make sure your doctor knows if you are or . ?? Do not use this medicine longer than 2 weeks unless your doctor has told you to. Possible Side Effects While Using This Medicine: Call your doctor right away if you notice any of these side effects: ?? Allergic reaction: Itching or hives, swelling in face or hands, swelling or tingling in the mouth or throat, tightness in chest, trouble breathing. ?? Severe stomach pain, bloating, vomiting, or diarrhea. If you notice these less serious side effects, talk with your doctor: ?? Mild cramps, bloating, diarrhea, or gas. If you notice other side effects that you think are caused by this medicine, tell your doctor. Call your doctor for medical advice about side effects. You may report side effects to FDA at 1-407-HZE-8693 ?? 2017 [employer] Information is for End User's use only and may not be sold, redistributed or otherwise used for commercial purposes. The above information is an school bus aide only. It is not intended as medical advice for individual conditions or treatments. Talk to your doctor, nurse or pharmacist before following any medical regimen to see if it is safe and effective for you. Metoprolol (By mouth) Metoprolol (vdz-ud-RYER-lol) Treats high blood pressure, angina (chest pain), and heart failure. May lower the risk of after a heart attack. This medicine is a beta-nini. Brand Name(s): Lopressor, Toprol XL There may be other brand names for this medicine. When This Medicine Should Not Be Used: This medicine is not right for everyone. Do not use if you had an allergic reaction to metoprolol or similar medicines. Do not use this medicine if you have certain blood circulation or heart problems. Ask your doctor about these problems. How to Use This Medicine: Tablet, Long Acting Tablet ?? Take your medicine as directed. Your dose may need to be changed several times to find what works best for you. ?? Take this medicine with a meal or right after a meal. Take this medicine the same way every day,at the same time. ?? Swallow the tablet whole with a glass of water. You may break the extended- release tablet in half, but do not chew or crush it. ?? Missed dose: Take a dose as soon as you remember. If it is almost time for your next dose, wait until then and take a regular dose. Do not take extra medicine to make up for a missed dose. ?? Store the medicine in a closed container at room temperature, away from heat, moisture, and direct light. Drugs and Foods to Avoid: Ask your doctor or pharmacist before using any other medicine, including zzet-hyj-mebdzwj medicines, vitamins, and herbal products. ?? Some medicines can affect how metoprolol works. Tell your doctor if you are taking any of the following: ?? Digoxin, dipyridamole, hydralazine, hydroxychloroquine, methyldopa, quinidine ?? Medicine to treat depression (such as bupropion, clomipramine, desipramine, fluoxetine, fluvoxamine, paroxetine, sertraline), medicine to treat mental illness (such as chlorpromazine, fluphenazine, haloperidol, thioridazine), medicine for heart rhythm problems (such as propafenone), HIV/AIDS medicine (such as ritonavir), medicine to treat a fungus infection (such as terbinafine), a monoamine oxidase inhibitor (MAOI), an ergot medicine for headaches, a calcium channel nini (such as amlodipine, diltiazem, verapamil), or an alpha nini (such as clonidine, prazosin, reserpine, guanethidine) Warnings While Using This Medicine: ?? Tell your doctor if you are or , or if you have blood vessel, heart, or circulation problems (such as heart failure, rhythm problems, or slow heartbeat). Tell your doctor if you have kidney disease, liver disease, diabetes, lung disease (such as asthma), an overactive thyroid, or a history of allergies. ?? This medicine may cause worse symptoms of heart failure while the dose is being adjusted. ?? Do not stop using this medicine suddenly. Your doctor will need to slowly decrease your dose before you stop it completely. ?? Tell any doctor or dentist who treats you that you are using this medicine. You may need to stopusing this medicine several days before you have surgery or medical tests. ?? This medicine could lower your blood pressure too much, especially when you first use it or if you are dehydrated. Stand or sit up slowly if you feel lightheaded or dizzy. ?? This medicine may make you dizzy or drowsy. Do not drive or do anything else that could be dangerous until you know how this medicine affects you. ?? Your doctor will check your progress and the effects of this medicine at regular visits. Keep all appointments. ?? Keep all medicine out of the reach of children. Never share your medicine with anyone. Possible Side Effects While Using This Medicine: Call your doctor right away if you notice any of these side effects: ?? Allergic reaction: Itching or hives, swelling in your face or hands, swelling or tingling in your mouth or throat, chest tightness, trouble breathing ?? Lightheadedness, dizziness, or fainting ?? Slow heartbeat ?? Swelling in your hands, ankles, or feet, trouble breathing, tiredness ?? Worsening chest pain If you notice these less serious side effects, talk with your doctor: ?? Diarrhea ?? Mild dizziness or tiredness If you notice other side effects that you think are caused by this medicine, tell your doctor. Call your doctor for medical advice about side effects. You may report side effects to FDA at 3-232-FRY-4352 ?? 2017 [employer] Information is for End User's use only and may not be sold, redistributed or otherwise used for commercial purposes. The above information is an school bus aide only. It is not intended as medical advice for individual conditions or treatments. Talk to your doctor, nurse or pharmacist before following any medical regimen to see if it is safe and effective for you. documented in this encounter Medications at Time of Discharge Medication Sig Dispensed Refills Start Date End Date amLODIPine (NORVASC) 10 MG tablet Take 10 mg by mouth 10/25/2017 02/23/20 Aspirin 81 MG Take 1 (one) tablet by mouth once daily 01/23/2024 atorvastatin (LIPITOR) 40 MG tablet Take 40 mg by mouth once daily 05/31/2017 01/31/2018 Blood Glucose Monitoring Suppl (ONE TOUCH ULTRA MINI) W/DEVICE KIT Check blood sugars twice daily 09/21/2016 03/19/2018 blood glucose test strip Use 1 strip 09/21/2016 03/19/2018 carvedilol (COREG) 6.25 MG tablet Take 6.25 mg by mouth 11/09/201702/12 furosemide (LASIX) 40 MG tablet Take 1 tablet by mouth once daily for 30 days 60 tablet 3 01/30/2018 03/01/2018 glipiZIDE CR 24hr (GLUCOTROL XL) 5 MG tablet Take 5 mg by mouth once daily 09/20/2017 03/01/2018 losartan-hydroCHLOROt hiazide (HYZAAR) 100-25 MG tablet Take 1 tablet by mouth 10/25/2017 0 02/22/2018 metFORMIN (GLUCOPHAGE) 1000 MG tablet Take 1,000 mg by mouth 2 times daily with morning and evening meal 09/20/2017 03/01/2018 metoprolol tartrate (LOPRESSOR) 25 MG tablet Take 1 tablet by mouth 2 times daily for 30 days 60 tablet 3 01/30/2018 02/22/2018 nitroGLYCERIN (NITROSTAT) 0.4 MG tablet Dissolve 0.4 mg under the tongue 11/07/2017 09/18/2018 One Touch Delica Lancets 09/21/2016 03/19/2018 oxyCODONE-acetaminoph en (PERCOCET) 5-325 MG tablet Take 1 tablet by mouth every 4 hours as needed for Pain 60 tablet 01/28/2018 03/13/2018 polyethylene glycol 3350 (MIRALAX) packet Take 17 g by mouth once daily as needed for Constipation 01/30/2018 03/13/2018 potassium chloride (KLOR-CON M) 20 MEQ tablet Take 1 tablet by mouth once daily for 30 days 30 tablet 3 01/30/2018 03/01/2018 senna-docusate (SENOKOT-S) 8.6-50 MG tablet Take 1 tablet by mouth once daily as needed for Constipation 01/30/2018 02/13/2018 sildenafil (REVATIO) 20 MG tablet Take 40-100 mg by mouth 5 times daily as needed 03/09/2017 12/09/2018 SITagliptin (JANUVIA) 100 MG tablet Take 100 mg by mouth once daily 03/05/2017 03/13/2018 documented as of this encounter Progress Notes * María Chacon MSW - 01/30/2018 2:20 PM CDT Discharge Date: 01/30/18 Transportation at time of Discharge: Family Medicaid Transport Arranged: N/A Ambulance Arranged: N/A Accepting DME Provider: N/A Phone Number for DME Provider: N/A Date/Location Equipment will be delivered: N/A Comments: Pt discharged with C PT/OT/Nursing through [facility]. No further SW needs identified. NOAH Breaux 01/30/2018 2:21 PM [phone] * Renay Christiansen OT - 01/30/2018 2:20 PM CDT [facility] Occupational Therapy Progress Note Patient: Yaya Vazquez Med Record Number: [id number] Date of : 1960 Age: 57 y.o. Recommendation: Recommendation: No skilled OT intervention needed post hospitalization at this time (Patient will benefit from outpatient cardiac rehab) Treatment Interventions: ADL retraining;Functional transfer training;UE strengthening/ROM;Endurancetraining;Equipment eval/education;Compensatory technique education;Continued evaluation OT Weekend Patient: Yes Plan: OT Frequency: Other (see comment) (all goals met; D/C OT) Precautions: Weight Bearing Status: (WBAT) Medical/Surgical Precaution: Yes Medical/Surgical Precautions: Sternal Subjective: Patient reports he feels confident in his ability to complete ADL and IADL independently at home at d/c. Agrees to d/c of skilled OT services at this time. At start of therapy session, patient found in bed. Pain: Patient has 0 out of 10 pain. Nurse notified. Activities of Daily Living Feeding: Patient reported independent Grooming/Bathing: Independent to complete hand hygiene standing at sink Upper Extremity Dressing: Independent to don/doff t-shirt, with good compliance with sternal precautions Lower Extremity Dressing: Independent to don/doff pants and socks Toileting/Transfers: Independent to complete toilet transfer; patient reported independence with toileting tasks Mobility: Assist device: none Supine to/from Sit:Independent Sit to/from Stand: Independent Bed to/from Chair: Independent Functional Mobility: From bed to bathroom with Independent Splint Issued/Checked: none Splint Check Completed: N/A Balance: Static Sitting: good Dynamic Sitting: good Static Standing: good Dynamic Standing: good Activity Tolerance: Patient's activity tolerance: good Cognitive/Perceptual: Alert and oriented x4. Followed commands 100%. Patient able to recall sternalprecautions with no verbal cues. Good problem solving. Treatment/Therapeutic Exercise: Treatment session this date focused on ADL training Functional transfer training Endurance training Safety awareness. Patient demonstratedgood functional balance while ambulating to/from closet to obtain clothing. Patient/Family Teaching: Mobility and Self care Equipment Issued: none Update Treatment Plan/Goals : All short term goals met. D/C OT. Short Term Goals: Patient will perform grooming with independence standing at the sink; met Patient will perform lower extremity dressing ??with standby assistance; met Patient will transfer to toilet with independence; met Patient will perform supine to sit with independence; met Patient will perform sit to stand ??With mod assist and X 1; met Patient will tolerate treatment ??25 minutes and with good endurance; met Education: ??good, safety education and cardiac education; met Investigative Research Specialist Goal:Patient to be independent/baseline with functional mobility and self care and be able to safely discharge to prior level of care If patient is discharged from the facility, this note serves as a discharge note if further occupational therapy visits did not occur. Following therapy session, patient left in patient bedside chair and with call light within reach. Renay Christiansen, JOSE ER/L * Evelyn Owens, PT - 01/30/2018 2:10 PM CDT [facility] PhysicalTherapy Progress Note Patient: Yaya Vazquez Med Record Number: [id number] Date of : 1960 Age: 57 y.o. Discharge Recommendation: Recommendation: Patient will benefit from outpatient PT (outpatient cardiac rehab) Plan: Treatment/Interventions: Functional transfer training;Gait training;Endurance training;Patient/family training;Equipment eval/education;Bed mobility PT Frequency: 5 Times/Week Subjective: Pt agreeable for therapy Patient currently using no assistive device. Mental Status: A&O via conversation At start of therapy session, patient found in patient bedside chair. Pain:0/10 Weight Bearing Status: WBAT Reviewed sternal precautions Mobility: Rolling: not tested Supine to Sit:not tested Sit to Supine: not tested Sit to Stand:Independent Bed to Chair: not tested Gait: Device:none Assistance: Independent Distance: 900 ft Deviations: decreased speed/ RPE rating 11 Oxygen Used: no Balance: Static Sitting: good Dynamic sitting: good Static Standing: good Dynamic Standing: good Stairs: 1 flight with bilateral railings indep /RPE 8 Vitals: no SOB or dizziness BP 119/75 HR 86 SaO2 96% on RA Post warm up/gait and cool down ex BP 147/64 HR 95 SaO2 99% on RA Activity Tolerance: Patient's activity tolerance: good Treatment/therapeutic Exercise: transfers, gait, PLB/declined getting back into bed Pt demonstrated/practiced and given handout for cardiac Phase l, post-op SX with sternal precautions Patient/Family Teaching: Gait, Mobility and Patient voiced understanding of instructions given Patient demonstrated Good understanding of instructions given. Short Term Goals: Goal Formation ??With patient, Patient will transfer supine to/from sit,??With stand by assist, Sitto stand goal: ??Independent-MET, Patient will ambulate ?151-200 feet Ind-MET??and Patient will go up/down stairs ??3-5 stairs, With stand by assist and With rail indep/ MET ? Investigative Research Specialist Goal(s): Patient to discharge to appropriate next level of inpatient care Update Treatment Plan: cont per POC,OP cardiac services for endurance If patient is discharged from the facility, this note serves as a discharge note if further physical therapy visits did not occur. Following therapy session, patient left in patient bedside chair and with call light within reach. Evelyn Owens, PT 01/30/2018 * María Chacon MSW - 01/30/2018 10:03 AM CDT SW following pt for discharge planning. Pt is no longer agreeable to ARU placement as PT has changed their recommendations to outpatient PT upon hospital discharge. Pt would like to go home with [facility] once medically cleared. SW submitted a [facility] referral to [facility]. SW to continue following. NOAH Breaux 01/30/2018 10:04 AM [phone] * Christi Wolff, OT - 01/29/2018 3:35 PM CDT [facility] Physical Medicine and Rehabilitation Occupational Therapy Progress Note Patient: Yaya Vazquez Med Record Number: [id number] Date of : 1960 Age: 57 y.o. Recommendation: Recommendation: Patient will benefit from intense 3 hour per day multidisciplinary inpatient therapies Treatment Interventions: ADL retraining;Functional transfer training;UE strengthening/ROM;Endurancetraining;Equipment eval/education;Compensatory technique education;Continued evaluation OT Weekend Patient: Yes Plan: OT Frequency: Other (see comment) (6-7 Times/Week) Precautions: Weight Bearing Status: (WBAT) Medical/Surgical Precaution: Yes Medical/Surgical Precautions: Sternal Subjective: Patient agreeable to therapy At start of therapy session, patient found in bed and with no alarm. Pain: Patient has 0 out of 10 pain. Activities of Daily Living Feeding: independent cup to mouth Grooming/Bathing: Stand By Assist to complete grooming tasks standing at the sink; patient tolerates ~12 minutes of dynamic standing with good overall activity tolerance. Upper Extremity Dressing: Independent to don/doff pullover shirt Lower Extremity Dressing: Minimal assist to don socks and pants Toileting/Transfers: Standby assistance for toilet transfer, clothing management, and hygiene Mobility: Assist device: none Supine to/from Sit:Independent Sit to/from Stand: Stand By Assist Bed to/from Chair: Stand By Assist Functional Mobility: From bed to bathroom to chair with Stand By Assist Splint Issued/Checked: none Splint Check Completed: N/A Balance: Static Sitting: good Dynamic Sitting: good Static Standing: good minus Dynamic Standing: good minus Activity Tolerance: Patient's activity tolerance: good Cognitive/Perceptual: Alert and oriented x4, follows 1- and 2-step commands 100%, good overall insight and safety awareness. Treatment/Therapeutic Exercise: Treatment session this date focused on ADL training Functional transfer training Endurance training Energy conservation HEP training Patient/Family Teaching: Exercise, Mobility and Self care Patient completed the following BUE exercises to in standing increase balance, strength, and endurance needed for self-care and functional mobility: rowing forward, rowing backward, horizontal abduction/adduction, shoulder flexion/extension, and chest press 20 reps each x2 sets with min cues for form and SBA for balance Equipment Issued: none Update Treatment Plan/Goals : Pt continues to benefit from skilled OT to improve independence with activities of daily living, increase strength, endurance, range of motion and decrease pain. Short Term Goals: Patient will perform grooming with independence standing at the sink; updated Patient will perform lower extremity dressing with standby assistance; updated Patient will transfer to toilet with independence; updated Patient will perform supine to sit with independence; met Patient will perform sit to stand With mod assist and X 1 Patient will tolerate treatment 25 minutes and with good endurance; met Education: good, safety education and cardiac education; ongoing Investigative Research Specialist Goal:Patient to discharge to appropriate next level of inpatient care If patient is discharged from the facility, this note serves as a discharge note if further occupational therapy visits did not occur. Following therapy session, patient left in patient bedside chair, with call light within reach, with RNSage aware and with RN/CP rehab cues written on white board. Christi Wolff OT * Geraldine Reed, PT - 01/29/2018 3:34 PM CDT [facility] Physical Medicine and Rehabilitation PhysicalTherapy Progress Note Patient: Yaya Vazquez Med Record Number: [id number] Date of : 1960 Age: 57 y.o. Discharge Recommendation: Recommendation: Patient will benefit from outpatient PT (outpatient cardiac rehab) Plan: Treatment/Interventions: Functional transfer training;Gait training;Endurance training;Patient/family training;Equipment eval/education;Bed mobility PT Frequency: 5 Times/Week Subjective: I feel comfortable going home Patient currently using no assistive device. Mental Status: A&O via conversation At start of therapy session, patient found in patient bedside chair. Pain: Patient does not report pain Weight Bearing Status: WBAT Mobility: Rolling: not tested Supine to Sit:not tested Sit to Supine: not tested Sit to Stand:Independent Bed to Chair: not tested Gait: Device:none Assistance: Independent Distance: over 500' Deviations: decreased speed Oxygen Used: no Balance: Static Sitting: good Dynamic sitting: good Static Standing: good Dynamic Standing: good Stairs: nt Vitals: no SOB or dizziness Activity Tolerance: Patient's activity tolerance: good Treatment/therapeutic Exercise: transfers, gait, declined getting back into bed Patient/Family Teaching: Gait, Mobility and Patient voiced understanding of instructions given Patient demonstrated Good understanding of instructions given. Short Term Goals: Goal Formation ??With patient, Patient will transfer supine to/from sit ?With stand by assist, Sit to stand goal: ??Independent-MET, Patient will ambulate ?151-200 feet Ind-MET??and Patient will go up/down stairs ??3-5 stairs, With stand by assist and With rail ? Mcc Goal(s): Patient to discharge to appropriate next level of inpatient care Update Treatment Plan: continue per POC, continue for endurance and stair training If patient is discharged from the facility, this note serves as a discharge note if further physical therapy visits did not occur. Following therapy session, patient left in patient bedside chair and with call light within reach. Geraldine Reed PT 01/29/2018 * Fabienne Cardona MD - 01/29/2018 2:14 PM CDT [facility] Cardiac Surgery Progress Note Admit: 01/24/2018 6:44 AM Date: January 29, 2018 Length of Stay: 5 Attending: Conner Blancas MD POD:5 Days Post-Op S/P: CABG x 3 (MUNIZ to LAD, Radial to OM, SVG to PDA) Private Circus Hand: Nehemias Dennis PCP: Lisy Olmedo MD Referring Facility: [facility] SUBJECTIVE: Recent Events: 01/29/18 POD 5: Yesterday because of elevation in WBC, urine and blood cultures were drawn. UA was clean and CX still set up and blood CX pending. No acute events overnight. Pt in good spirits this morning. Still no substantial BM since POD 1 when had minimal. Denies CP or SOB, now on RA in no distress. Awaiting morning lab work and acceptance/insurance authorization to [facility]. History and Hospital Course: Yaya Vazquez is a 57 y.o. male with a PMHx significant for DM who underwent work up for angina was found to have multivessel coronary artery disease presents this AM for CABG. Today he mentions he feels well, no interval changes since last vist. 01/24/18: The patient underwent a CABG x 3 (MUNIZ to LAD, Radial to OM, SVG to PDA) 01/25/18 POD 1: The pt was extubated yesterday. No acute events over night, did not require any pressors over night. This morning, prior to rounds, the patient was sat up out of bed to the chair. He became hypotensive, with a drop in CI, CVP, and PAPs, with assiciated dizziness. Vaso and Levo were restarted immediately, and a 500 NS bolus was given. The patient was brought back to bed and another 1 L of NS was given. Vaso and Levo were eventually weaned off. The patient was seen again after rounds states he feels much better then this morning. No SOB, pain controlled with pain meds. 01/26/18 POD 2: No acute events overnight. Yesterday, EKG was noted to have some ST changes, cardiology was consulted and they recommended an ECHO. ECHO was done with no wall motion abnormalities. Thepatient hemodynamic status improved s/p 2 L of NS. [place], cordis, A-line, Wires, meds, beltran, were d/c. Transferred to the floor.Started on ASA and Lipitor. 01/27/18 POD 3: No acute events overnight. Right wrist dressing now open to air, areas of surgical glue removed with dressing and steri strips placed in those areas. Heparin was Stopped yesterday due to concern for HIT, HIT negative - Heparin restarted. Pleural Chest tube remains in due to High output. On 2 L nasal cannula. Metoprolol 12.5 mg BID started as well as Lasix 20 mg IV BID. 01/28/18 POD 4: No acute overnight events reported. This morning reports feeling great and very appreciative of all care given. Reports pain is well controlled, no CP or dyspnea, currently on 2 L saturations 99-100. Eager to be discharged but understanding of plan of care as well. L PL CT remains with serosanguinous output, 160 output over last 24 hrs. OBJECTIVE: Scheduled Medications: magnesium oxide 800 mg Oral BID metoprolol tartrate 25 mg Oral BID furosemide 40 mg Intravenous BID And potassium chloride 20 mEq Oral BID heparin 5,000 Units Subcutaneous q8h aspirin 81 mg Oral QDAY atorvastatin 20 mg Oral AT BEDTIME polyethylene glycol 3350 17 g Oral QDAY senna-docusate 1 tablet Oral AT BEDTIME pantoprazole EC 40 mg Oral QDAY insulin aspart 0-12 Units Subcutaneous TID WC 0.9% NaCl 10 mL Intracatheter q8h albuterol-ipratropium 3 mL Inhalation q4h mupirocin calcium Topical BID Continuous Medications: PRN Medications: bisacodyl 10 mg QDAY PRN magnesium hydroxide 30 mL QDAY PRN 0.9% NaCl 10 mL PRN ondansetron 4 mg q6h PRN glucose (Diabetic Use) PRN dextrose 25-50 mL PRN glucagon 1 mg PRN oxyCODONE-acetaminophen 1 tablet q4h PRN Or oxyCODONE-acetaminophen 2 tablet q4h PRN calcium gluconate 2 g PRN Vital Signs: BP 118/73 Pulse 77 Temp 98.4 ??F (36.9 ??C) Resp 20 Ht 6' 4 (1.93 m) Wt 294 lb 8 oz (133.6 kg) SpO2 98% BMI 35.85 kg/m2 Temp: [97.7 ??F (36.5 ??C)-99.4 ??F (37.4 ??C)] 98.4 ??F (36.9 ??C) Pulse: [75-96] 77 Resp: [16-20] 20 BP: (113-123)/(70-76) 118/73 Diet: DIET CARDIAC Is&Os: 01/28 0701 - 01/29 0700 In: 600 [P.O.:600] Out: 2360 [Urine:2250; Drains:110] Date 01/28/18 07 - 01/29/18 0659 01/29/18 07 - 01/30/18 0659 Shift 7741-8794 9943-2193 24 Hour Total 9839-5961 0266-5711 24 Hour Total I N T A K E P.O. 600 600 720 720 Shift Total (mL/kg) 600 (4.5) 600 (4.5) 720 (5.4) 720 (5.4) O U T P U T Urine (mL/kg/hr) 450 (0.3) 1800 (1.1) 2250 (0.7) Drains 110 110 Shift Total (mL/kg) 560 (4.2) 1800 (13.5) 2360 (17.7) NET -560 -1200 -1760 720 720 Weight (kg) 133.6 133.6 133.6 133.6 133.6 133.6 Physical Exam: General appearance: normal, alert,cooperative, no distress, appears stated age. Lungs: clear to auscultation bilaterally, no crackles, no wheezes, chest expansion normal. On RA. Chest wall: sternal incision well approximated, no erythema, or drainage. L PL CT with serosanguinous drainage . Heart: RRR, normal S1 and S2, no murmur, SR per tele. Abdomen: soft, non-tender, non-distended. Hypoactive BS. Extremities: extremities normal, atraumatic, no cyanosis. 1 + edema to LE noted. Vein harvest sightto RLE well approximated, no drainage or erythema, with healing ecchymosis along vein harvest tract. R wrist now open to air, incisions c/d/i with dermabond on top, steri- strips on open areas. Pulses: 2+ and symmetric bilateral ulnar and DP pulses. Skin: Skin color, texture, turgor normal. No rashes or lesions. Neurologic: Grossly normal, no focal neuro deficits, A/O x 4. Arterial Blood Gas result: Recent Labs Component Name 01/25/18 0026 01/24/18 1917 01/24/18 1706 01/24/18 1540 01/24/18 1429 PHART 7.42 7.40 7.35 7.26* 7.27* PAK1VGI 38 40 44 56* 50* PO2ART 82 102* 91 120* 122* [id number] 24.3 24.6 23.5 24.5 22.7 BEART -0.1 -0.1 -2.1* -2.8* -4.1* Recent Labs Component Name 01/29/18 0620 01/28/18 0917 01/27/18 0654 WBC 7.3 17.4* 9.4 HGB 8.8* 8.7* 8.5* HCT 27.7* 28.5* 27.2* PLT 168 239 143* Recent Labs Component Name 01/29/18 1111 01/29/18 0642 01/29/18 0620 01/28/18 0655 01/27/18 0654 01/24/18 1345 01/24/18 1247 01/24/18 0953 NA - - 136 - 136 - 138 - - - - K - - - - - - - - 5.2 6.1* 4.6 CL - - 97* - 97* - 100 - - - - CO2 - - 26 - 30* - 26 - - - - BUN - - 12 - 9 - 8 - - - - CREATININE - - 1.0 - 0.9 - 0.9 - - - - GLU 186* 193* 170* - 144* - 129* - - - - CALCIUM - - 9.1 - 8.7 - 9.1 - - - - MAGNESIUM - - 1.8 - 1.6 - 1.2* - - - - - = values in this interval not displayed. Recent Labs Component Name 01/11/18 1548 PROT 8.2 ALB 3.8 TBILI 0.7 AST 14 ALT 13 ALKPHOS 56 Recent Labs Component Name 01/25/18 0026 01/24/18 1540 01/24/18 1345 01/11/18 1548 INR 1.1 1.2 1.4 0.9 PTT - 35.7 >212.0* 28.6 Recent Imaging: CXR 01/29: FINDINGS/IMPRESSION: ?? Median sternotomy wires and mediastinal surgical clips are unchanged. ?? Mild bibasilar opacities representing airspace disease and/or atelectasis have mildly increased, left greater than right. No pleural effusion or pneumothorax is identified. The cardiomediastinal silhouette is borderline large for this AP view. The visible bony thorax is intact. ECHO 01/25: Limited study for LV function. There is mild concentric left ventricular hypertrophy. The LV cavity size is normal. Left ventricular systolic function is normal without wall motion abnormalities. Estimated LV EF is 55%. Dilated aortic root? 4.1 cm at the sinus of Valsalva. Proximal ascending aorta is 3.4cm. Preop Imaging AMANDO Intra-op 01/24/18: Conclusion: 1. Normal biventricular systolic function 2. LVH 3. No significant valvular heart disease (trivial MR, trivial AI) 4. Normal JING structure and velocities ?? CXR: - The lungs are clear. There is no focal consolidation, pleural effusion, or pneumothorax. -The cardiomediastinal silhouette is normal. No acute osseous injury is identified. CT SCAN 12/21/17: - Mildly dilated/ectatic aortic root measuring 4.1 cm in diameter. No significant atherosclerotic calcifications at the aortic root. - Multiple right upper lobe subpleural nodules measuring up to 3 mm. If the patient is high risk, follow-up CT is optional at 12 months. If the patient is low risk, no follow-up is required. ?? Carotid duplex 12/21/17 : - No hemodynamically significant stenosis of the carotid arteries bilaterally. - Antegrade flow in the vertebral arteries bilaterally ASSESSMENT: Patient Active Problem List Diagnosis ??? CAD (coronary artery disease) ??? HTN (hypertension) ??? DM (diabetes mellitus) ??? S/P CABG x 3 Yaya Vazquez is a 57 y.o. male with a PMHx significant for DM, and CAD. S/P CABG x 3 on 01/24/18. PLAN: Neuro: - Post op pain: Percocet, pain well controlled. CV: S/P CABG x 3 MUNIZ to LAD, Radial to OM, SVG to PDA. Most recent Echo: normal EF. - BB: Metoprolol 25 mg PO BID. - ASA: 81 mg daily. - Statin: Lipitor 20 mg. - Lasix 40 mg IV BID . Resp: - Wean oxygen for SpO2 greater than 90%, now on RA. - CXR daily. - IS, nebs, OOB to chair. FEN/GI: - BMP and electrolytes every other day and treat as indicated. - Cardiac diet. - Protonix PO daily . - Bowel regimen . Small BM immediate post-op, nothing since. - Enema today. Nephro/: - Pre-Op Cr 0.9, today 1. - Adequate UO. Heme: - Acute blood loss anemia. - CBC every other day. Hgb stable. ID/Microbiology: - A-febrile, no S/S of infection however WBC now 7.3, elevated yesterday 17.4? UA clean/Cx Pending and Blood CXs pending. Endo: SSI, glucose well controlled. Wounds: Continue CHG and betadine daily and PRN. Lines: - Continue: PIV. - D/C: none Prophy: - VTE: SCD's and SQ Heparin. - GI: Protonix . - SCIP: completed. - PNA: IS, nebs, OOB. PT/OT: ordered and recommending Rehab, pt agreeable. Dispo: continue floor care, SW consulted for D/C needs. Awaiting insurance auth via [employer] for [facility]. Per SW likely to be authorized tomorrow. Rosendo Fernandez, PACK PRESS OPERATOR-STREET SUPERINTENDENT 01/29/2018 2:15 PM As above. WBC 7.3 - yesterday's was 17.4 - likely spurious CBC sample as platelet count was also inconsistent with prior draws. Afebrile, denies diarrhea, abd pain; cultures NGTD, and incision without erythema. Plan DC once rehab authorized. Fabienne Cardona MD 01/29/2018 8:00 PM * Ny Reid COTA - 01/28/2018 3:28 PM CDT [facility] Department of Physical Medicine & Rehabilitation Progress Note Patient: Yaya Vazquez [facility] Record Number: [id number] Date of : 1960 Age: 57 y.o. 01/28/18 1500 Missed Visit Missed Visit Procedure in the room. Will continue to follow. Name of RN Mustapha Pt is currently having chest tubes removed in room. Will continue to follow. RICHARD Soto 01/28/2018 3:29 PM * Penny Gordon PT - 01/28/2018 2:46 PM CDT [facility] Physical Medicine and Rehabilitation PhysicalTherapy Progress Note Patient: Yaya Vazquez [facility] Record Number: [id number] Date of : 1960 Age: 57 y.o. Discharge Recommendation: Recommendation: Patient will benefit from intense 3 hour per day multidisciplinary inpatient therapies Plan: Treatment/Interventions: Functional transfer training;Gait training;Endurance training;Patient/family training;Equipment eval/education;Bed mobility PT Frequency: 6-7 Times/Week Equipment Recommended: (will continue to assess) PT Weekend Patient: Yes Subjective: Sure, I can do that Patient currently using no assistive device. Mental Status: A&O x3 At start of therapy session, patient found in bed and with no alarm. Pain: Patient has 7 out of 10 pain at chest incision. Nurse notified. Weight Bearing Status: WBAT with sternal precautions Mobility: Rolling: not tested Supine to Sit:Minimal assist Sit to Supine: Minimal assist Sit to Stand:Minimal assist Bed to Chair: not tested Gait: Device:none Assistance: Minimal assist Distance: 270' Deviations: decreased jose, decreased foot clearance ADAM Oxygen Used: no Balance: Static Sitting: good Dynamic sitting: good Static Standing: fair plus Dynamic Standing: fair plus Stairs: not assessed this date Vitals: prior to activity: BP 112/62, O2 saturation 95% on RA, HR 82bpm Following activity: O2 saturation 90% on RA (increased to >90% within 20 seconds of returning toroom), HR 102bpm Activity Tolerance: Patient's activity tolerance: fair plus Treatment/therapeutic Exercise: t/f training, gait training, seated ADAM LEs AROM x10 - knee extension/flexion, alternating hip flexion, ankle pumps Patient/Family Teaching: Exercise, Gait, Mobility, Home Safety and Patient voiced understanding of instructions given Patient demonstrated Good understanding of instructions given. Short Term Goals: Goal Formation ??With patient, Patient will transfer supine to/from sit ?With stand by assist, Sit to stand goal: ??With stand by assist, Patient will ambulate ?151-200 feet and With stand by assist??and Patient will go up/down stairs ??3-5 stairs, With stand by assist and With rail ? Investigative Research Specialist Goal(s): Patient to discharge to appropriate next level of inpatient care Update Treatment Plan: Continue PT per POC If patient is discharged from the facility, this note serves as a discharge note if further physical therapy visits did not occur. Following therapy session, patient left in bed, with call light within reach and with RN/CP rehab cues written on white board. Penny Gordon PT 01/28/2018 * María Chacon MSW - 01/28/2018 10:47 AM CDT Pt is agreeable to ARU placement and would prefer placement at [facility]. submitted an ARU referral and [facility] is able to accept pt pending insurance authorization. [facility] submitting for authorization through pt's insurance, [employer] DENISE, today. SW to continue following. NOAH Breaux 01/28/2018 10:48 AM [phone] * María Chacon MSW - 01/28/2018 9:34 AM CDT Care Coordination Initial Assessment Case Management screen completed, welcome letter given. Met with pt at bedside to complete an assessment an discuss discharge planning. Lives with Lives with:: Sister (Carol Vazquez (sister) [phone]) Pt's other sister, Jenn Mckee [phone], is another emergency contact for pt if needed. Prior Level of Functioning: Independent, no DME Discharge Plan: ARU vs [facility] vs HHC through [facility] Comments: PT/OT recommending ARU placement at this time. Pt is agreeable to recommendations, but isalso interested in [facility] or HHC through [facility] should PT/OT change their recommendations. SW to reevaluate after pt meets with therapy today. SW submitted referrals to all levels of care mentioned above. Anticipated Discharge Date: 01/28/18 per CTS. Transportation at discharge: Transportation at discharge: Family Transportation to MD appointments: Transportation to Appointments: Drives self Equipment at Home: Equipment At Home: None PCP: Lisy Olmedo MD If no PCP, action taken: Pharmacy benefit: Yes, has [place] BCBS. If no, action taken: If patient requires HHC at discharge, he/she requests: [facility]. Will continue to follow. For any questions or needs please contact: Support Specialist Name/Phone number: NOAH Breaux, * Rosendo Fernandez, PACK PRESS OPERATOR-STREET SUPERINTENDENT - 01/28/2018 9:04 AM CDT [facility] Cardiac Surgery Progress Note Admit: 01/24/2018 6:44 AM Date: January 28, 2018 Length of Stay: 4 Attending: Conner Blancas MD POD:4 Days Post-Op S/P: CABG x 3 (MUNIZ to LAD, Radial to OM, SVG to PDA) Private Circus Hand: Nehemias Dennis PCP: Lisy Olmedo MD Referring Facility: [facility] SUBJECTIVE: Recent Events: 01/28/18 POD 4: No acute overnight events reported. This morning reports feeling great and very appreciative of all care given. Reports pain is well controlled, no CP or dyspnea, currently on 2 L saturations 99-100. Eager to be discharged but understanding of plan of care as well. L PL CT remains with serosanguinous output, 160 output over last 24 hrs. History and Hospital Course: Yaya Vazquez is a 57 y.o. male with a PMHx significant for DM who underwent work up for angina was found to have multivessel coronary artery disease presents this AM for CABG. Today he mentions he feels well, no interval changes since last vist. 01/24/18: The patient underwent a CABG x 3 (MUNIZ to LAD, Radial to OM, SVG to PDA) 01/25/18 POD 1: The pt was extubated yesterday. No acute events over night, did not require any pressors over night. This morning, prior to rounds, the patient was sat up out of bed to the chair. He became hypotensive, with a drop in CI, CVP, and PAPs, with assiciated dizziness. Vaso and Levo were restarted immediately, and a 500 NS bolus was given. The patient was brought back to bed and another 1 L of NS was given. Vaso and Levo were eventually weaned off. The patient was seen again after rounds states he feels much better then this morning. No SOB, pain controlled with pain meds. 01/26/18 POD 2: No acute events overnight. Yesterday, EKG was noted to have some ST changes, cardiology was consulted and they recommended an ECHO. ECHO was done with no wall motion abnormalities. Thepatient hemodynamic status improved s/p 2 L of NS. [place], cordis, A-line, Wires, meds, beltran, were d/c. Transferred to the floor.Started on ASA and Lipitor. 01/27/18 POD 3: No acute events overnight. Right wrist dressing now open to air, areas of surgical glue removed with dressing and steri strips placed in those areas. Heparin was Stopped yesterday due to concern for HIT, HIT negative - Heparin restarted. Pleural Chest tube remains in due to High output. On 2 L nasal cannula. Metoprolol 12.5 mg BID started as well as Lasix 20 mg IV BID. OBJECTIVE: Scheduled Medications: magnesium oxide 800 mg Oral BID potassium chloride 60 mEq Oral Once magnesium sulfate 2 g Intravenous Once ezguz-puw-[id number] 360 mL Rectal Once metoprolol tartrate 25 mg Oral BID furosemide 40 mg Intravenous BID And potassium chloride 20 mEq Oral BID heparin 5,000 Units Subcutaneous q8h aspirin 81 mg Oral QDAY atorvastatin 20 mg Oral AT BEDTIME polyethylene glycol 3350 17 g Oral QDAY senna-docusate 1 tablet Oral AT BEDTIME pantoprazole EC 40 mg Oral QDAY insulin aspart 0-12 Units Subcutaneous TID WC 0.9% NaCl 10 mL Intracatheter q8h albuterol-ipratropium 3 mL Inhalation q4h mupirocin calcium Topical BID Continuous Medications: PRN Medications: bisacodyl 10 mg QDAY PRN magnesium hydroxide 30 mL QDAY PRN 0.9% NaCl 10 mL PRN ondansetron 4 mg q6h PRN glucose (Diabetic Use) PRN dextrose 25-50 mL PRN glucagon 1 mg PRN oxyCODONE-acetaminophen 1 tablet q4h PRN Or oxyCODONE-acetaminophen 2 tablet q4h PRN calcium gluconate 2 g PRN Vital Signs: BP 124/70 Pulse 76 Temp 97.9 ??F (36.6 ??C) Resp 18 Ht 6' 4 (1.93 m) Wt 294 lb 8 oz (133.6 kg) SpO2 88% BMI 35.85 kg/m2 Temp: [97.9 ??F (36.6 ??C)-98.9 ??F (37.2 ??C)] 97.9 ??F (36.6 ??C) Pulse: [72-85] 76 Resp: [16-20] 18 BP: (98-126)/(63-83) 124/70 Diet: DIET CARDIAC Is&Os: 01/27 0701 - 01/28 0700 In: - Out: 2985 [Urine:2825; Drains:160] Date 01/27/18 07 - 01/28/18 0659 01/28/18 07 - 01/29/18 0659 Shift 6555-5968 4977-0747 24 Hour Total 1867-0903 2443-2599 24 Hour Total I N T A K E Shift Total (mL/kg) O U T P U T Urine (mL/kg/hr) 1500 (0.9) 1325 (0.8) 2825 (0.9) 100 100 Drains 100 60 160 Shift Total (mL/kg) 1600 (11.9) 1385 (10.3) 2985 (22.2) 100 (0.7) 100 (0.7) NET -1600 -1385 -2985 -100 -100 Weight (kg) 134.5 134.5 134.5 133.6 133.6 133.6 Physical Exam: General appearance: normal, alert,cooperative, no distress, appears stated age. Lungs: clear to auscultation bilaterally, no crackles, no wheezes, chest expansion normal. Chest wall: sternal incision well approximated, no erythema, or drainage. L PL CT with serosanguinous drainage . Heart: RRR, normal S1 and S2, no murmur, SR per tele. Abdomen: soft, non-tender, non-distended. Extremities: extremities normal, atraumatic, no cyanosis. 1 + edema to LE noted. Vein harvest sightto RLE well approximated, no drainage or erythema, with healing ecchymosis along vein harvest tract. R wrist now open to air, incisions c/d/i with dermabond on top, steri- strips on open areas. Pulses: 2+ and symmetric bilateral ulnar and DP pulses, Skin: Skin color, texture, turgor normal. No rashes or lesions. Neurologic: Grossly normal, no focal neuro deficits, A/O x 4. Arterial Blood Gas result: Recent Labs Component Name 01/25/18 0026 01/24/18 1917 01/24/18 1706 01/24/18 1540 01/24/18 1429 PHART 7.42 7.40 7.35 7.26* 7.27* [id number] 38 40 44 56* 50* PO2ART 82 102* 91 120* 122* [id number] 24.3 24.6 23.5 24.5 22.7 BEART -0.1 -0.1 -2.1* -2.8* -4.1* Recent Labs Component Name 01/28/18 0917 01/27/18 0654 01/26/18 0652 WBC 17.4* 9.4 9.2 HGB 8.7* 8.5* 8.9* HCT 28.5* 27.2* 28.3* PLT 239 143* 133* Recent Labs Component Name 01/28/18 0735 01/28/18 0655 01/27/18 2138 01/27/18 0654 01/26/18 0652 01/24/18 1345 01/24/18 1247 01/24/18 0953 NA - 136 - - 138 - 138 - - - - K - - - - - - - - 5.2 6.1* 4.6 CL - 97* - - 100 - 105 - - - - CO2 - 30* - - 26 - 24 - - - - BUN - 9 - - 8 - 9 - - - - CREATININE - 0.9 - - 0.9 - 1.0 - - - - GLU 157* 144* 184* - 129* - 158* - - - - CALCIUM - 8.7 - - 9.1 - 8.9 - - - - MAGNESIUM - 1.6 - - 1.2* - 1.4* - - - - - = values in this interval not displayed. Recent Labs Component Name 01/11/18 1548 PROT 8.2 ALB 3.8 TBILI 0.7 AST 14 ALT 13 ALKPHOS 56 Recent Labs Component Name 01/25/18 0026 01/24/18 1540 01/24/18 1345 01/11/18 1548 INR 1.1 1.2 1.4 0.9 PTT - 35.7 >212.0* 28.6 Recent Imaging: CXR 01/28: awaiting imaging. CXR 01/27: Findings/ Impression: Intact and well aligned median sternotomy wires and mediastinal clips are redemonstrated. A left thoracostomy tube is present. ?? There is mild opacity in the mid to lower lungs which may represent a combination of atelectasis and/or airspace disease and small layering pleural effusions, unchanged on left and slightly increased on the right. The interstitial markings are at the upper limits of normal. There is no pneumothorax. The cardiac silhouette remains enlarged. ECHO 01/25: Limited study for LV function. There is mild concentric left ventricular hypertrophy. The LV cavity size is normal. Left ventricular systolic function is normal without wall motion abnormalities. Estimated LV EF is 55%. Dilated aortic root? 4.1 cm at the sinus of Valsalva. Proximal ascending aorta is 3.4cm. Preop Imaging [facility] Intra-op 01/24/18: Conclusion: 1. Normal biventricular systolic function 2. LVH 3. No significant valvular heart disease (trivial MR, trivial AI) 4. Normal JING structure and velocities ?? CXR: - The lungs are clear. There is no focal consolidation, pleural effusion, or pneumothorax. -The cardiomediastinal silhouette is normal. No acute osseous injury is identified. CT SCAN 12/21/17: - Mildly dilated/ectatic aortic root measuring 4.1 cm in diameter. No significant atherosclerotic calcifications at the aortic root. - Multiple right upper lobe subpleural nodules measuring up to 3 mm. If the patient is high risk, follow-up CT is optional at 12 months. If the patient is low risk, no follow-up is required. ?? Carotid duplex 12/21/17 : - No hemodynamically significant stenosis of the carotid arteries bilaterally. - Antegrade flow in the vertebral arteries bilaterally ASSESSMENT: Patient Active Problem List Diagnosis ??? CAD (coronary artery disease) ??? HTN (hypertension) ??? DM (diabetes mellitus) ??? S/P CABG x 3 Yaya Vazquez is a 57 y.o. male with a PMHx significant for DM, and CAD. S/P CABG x 3 on 01/24/18. PLAN: Neuro: - Post op pain: Percocet, pain well controlled. CV: S/P CABG x 3 MUNIZ to LAD, Radial to OM, SVG to PDA. Most recent Echo: normal EF. - BB: Metoprolol 25 mg PO BID. - ASA: 81 mg daily. - Statin: Lipitor 40 mg. - Lasix 40 mg IV BID . Resp: - Wean oxygen for SpO2 greater than 90%. - CXR daily. - IS, nebs, OOB to chair. FEN/GI: - BMP and electrolytes daily and treat as indicated. - Cardiac diet. - Protonix PO daily . - Bowel regimen . Small BM immediate post-op, nothing since. - Suppository today and enema if no response. Nephro/: - Pre-Op Cr 0.9, today 0.9. Heme: - Acute blood loss anemia. - CBC daily. Hgb stable. ID/Microbiology: - A-febrile, no S/S of infection however WBC elevated today 17.4 from 9.4, check UA/Cx and Blood CXs. Endo: SSI, glucose well controlled. Wounds: Continue CHG and betadine daily and PRN. Lines: - Continue: PIV's. - D/C: L PCT. Prophy: - VTE: SCD's and SQ Heparin. - GI: Protonix . - SCIP: completed. - PNA: IS, nebs, OOB. PT/OT: ordered and recommending Rehab currently, asked to re-eval today. Dispo: continue floor care, SW consulted for D/C needs. Patient appears strong enough to potentially go home but seems to be leaning towards Rehab. Per SW likely able to accept tomorrow given CT being removed today. Rosendo Fernandez, P[employer] OPERATOR[employer] SUPERINTENDENT 01/28/2018 10:39 AM * Fabienne Cardona MD - 01/27/2018 2:20 PM CDT [facility] Cardiac Surgery Progress Note Admit: 01/24/2018 6:44 AM Date: January 27, 2018 Length of Stay: 3 Attending: Conner Blancas MD POD:3 Days Post-Op S/P: CABG x 3 (MUNIZ to LAD, Radial to OM, SVG to PDA) Private Circ[employer] Hand: Nehemias Dennis PCP: Lisy Olmedo MD Referring Facility: [facility] SUBJECTIVE: Recent Events: 01/27/18 POD 3: No acute events overnight. Right wrist dressing now open to air, areas of surgical glue removed with dressing and steri strips placed in those areas. Heparin was Stopped yesterday due to concern for HIT, HIT negative - Heparin restarted. Pleural Chest tube remains in due to High output. On 2 L nasal cannula. Metoprolol 12.5 mg BID started as well as Lasix 20 mg IV BID. History and Hospital Course: Yaya Vazquez is a 57 y.o. male with a PMHx significant for DM who underwent work up for angina was found to have multivessel coronary artery disease presents this AM for CABG. Today he mentions he feels well, no interval changes since last vist. 01/24/18: The patient underwent a CABG x 3 (MUNIZ to LAD, Radial to OM, SVG to PDA) 01/25/18 POD 1: The pt was extubated yesterday. No acute events over night, did not require any pressors over night. This morning, prior to rounds, the patient was sat up out of bed to the chair. He became hypotensive, with a drop in CI, CVP, and PAPs, with assiciated dizziness. Vaso and Levo were restarted immediately, and a 500 NS bolus was given. The patient was brought back to bed and another 1 L of NS was given. Vaso and Levo were eventually weaned off. The patient was seen again after rounds states he feels much better then this morning. No SOB, pain controlled with pain meds. 01/26/18 POD 2: No acute events overnight. Yesterday, EKG was noted to have some ST changes, cardiology was consulted and they recommended an ECHO. ECHO was done with no wall motion abnormalities. Thepatient hemodynamic status improved s/p 2 L of NS. [place], cordis, A-line, Wires, meds, beltran, were d/c. Transferred to the floor.Started on ASA and Lipitor. OBJECTIVE: Scheduled Medications: metoprolol tartrate 25 mg Oral BID furosemide 40 mg Intravenous BID And potassium chloride 20 mEq Oral BID heparin 5,000 Units Subcutaneous q8h aspirin 81 mg Oral QDAY atorvastatin 20 mg Oral AT BEDTIME polyethylene glycol 3350 17 g Oral QDAY senna-docusate 1 tablet Oral AT BEDTIME pantoprazole EC 40 mg Oral QDAY insulin aspart 0-12 Units Subcutaneous TID WC 0.9% NaCl 10 mL Intracatheter q8h albuterol-ipratropium 3 mL Inhalation q4h mupirocin calcium Topical BID Continuous Medications: PRN Medications: bisacodyl 10 mg QDAY PRN magnesium hydroxide 30 mL QDAY PRN 0.9% NaCl 10 mL PRN potassium chloride 20 mEq PRN magnesium sulfate 2 g PRN ondansetron 4 mg q6h PRN glucose (Diabetic Use) PRN dextrose 25-50 mL PRN glucagon 1 mg PRN oxyCODONE-acetaminophen 1 tablet q4h PRN Or oxyCODONE-acetaminophen 2 tablet q4h PRN fentaNYL (PF) 25 mcg q1h PRN Or fentaNYL (PF) 50 mcg q1h PRN calcium gluconate 2 g PRN Vital Signs: BP 125/77 Pulse 81 Temp 98.9 ??F (37.2 ??C) Resp 16 Ht 6' 4 (1.93 m) Wt 296 lb 8 oz (134.5 kg) SpO2 99% BMI 36.09 kg/m2 Temp: [98.2 ??F (36.8 ??C)-98.9 ??F (37.2 ??C)] 98.9 ??F (37.2 ??C) Pulse: [72-95] 81 Resp: [16-24] 16 BP: (125-128)/(70-83) 125/77 CI: 2.1-3.3 SvO2: 60-75% PAS/PAD: 27-37/12- RA/CVP: 7-18 Diet: DIET CARDIAC Is&Os: 01/26 0701 - 01/27 0700 In: 520 [P.O.:520] Out: 4450 [Urine:4175; Drains:275] Date 01/26/18 07 - 01/27/18 0601/27/18 07 - 01/28/18 0659 Shift 4654-7034 2686-6206 24 Hour Total 0563-9734 5214-8409 24 Hour Total I N T A K E P.O. 520 520 Shift Total (mL/kg) 520 (3.8) 520 (3.9) O U T P U T Urine (mL/kg/hr) 1925 (1.2) 2250 (1.4) 4175 (1.3) 500 500 Drains 200 75 275 100 100 Shift Total (mL/kg) 2125 (15.7) 2325 (17.3) 4450 (33.1) 600 (4.5) 600 (4.5) NET -160 -8525 -3930 -600 -600 Weight (kg) 135.4 134.5 134.5 134.5 134.5 134.5 Physical Exam: General appearance: normal, alert,cooperative, no distress, appears stated age Lungs: clear to auscultation bilaterally, no crackles, no wheezes, chest expansion normal Chest wall: sternal incision well approximated, no erythema, or drainage. CTwith serosanguinous drainage Heart: RRR, normal S1 and S2, no murmur, SR per tele. Abdomen: soft, non-tender, non-distended Extremities: extremities normal, atraumatic, no cyanosis.1 + edema. Vein harvest sight to RLE well approximated, no drainage or erythema, with healing ecchymosis along vein harvest tract. R wrist nowopen to air Incisions c/d/i with surgical glue on top, steri- strips on open areas Pulses: 2+ and symmetric bilateral radial and DP pulses Skin: Skin color, texture, turgor normal. No rashes or lesions Neurologic: Grossly normal, no focal neuro deficits, A/O x 3 Arterial Blood Gas result: Recent Labs Component Name 01/25/18 0026 01/24/18 1917 01/24/18 1706 01/24/18 1540 01/24/18 1429 PHART 7.42 7.40 7.35 7.26* 7.27* [id number] 38 40 44 56* 50* PO2ART 82 102* 91 120* 122* [id number] 24.3 24.6 23.5 24.5 22.7 BEART -0.1 -0.1 -2.1* -2.8* -4.1* Recent Labs Component Name 01/27/18 0654 01/26/18 0652 01/25/18 0026 WBC 9.4 9.2 8.4 HGB 8.5* 8.9* 8.7* HCT 27.2* 28.3* 27.1* PLT 143* 133* 155 Recent Labs Component Name 01/27/18 1722 01/27/18 1138 01/27/18 0737 01/27/18 0654 01/26/18 0652 01/25/18 0026 01/24/18 1345 01/24/18 1247 01/24/18 0953 NA - - - 138 - 138 - 137 - - - - K - - - - - - - - - 5.2 6.1* 4.6 CL - - - 100 - 105 - 104 - - - - CO2 - - - 26 - 24 - 21* - - - - BUN - - - 8 - 9 - 15 - - - - CREATININE - - - 0.9 - 1.0 - 0.9 - - - - GLU 123* 146* 212* 129* - 158* - 131* - - - - CALCIUM - - - 9.1 - 8.9 - 9.3 - - - - MAGNESIUM - - - 1.2* - 1.4* - 2.0 - - - - - = values in this interval not displayed. Recent Labs Component Name 01/11/18 1548 PROT 8.2 ALB 3.8 TBILI 0.7 AST 14 ALT 13 ALKPHOS 56 Recent Labs Component Name 01/25/18 0026 01/24/18 1540 01/24/18 1345 01/11/18 1548 INR 1.1 1.2 1.4 0.9 PTT - 35.7 >212.0* 28.6 Recent Imaging: CXR 01/25: Official read pending Preop Imaging [facility] Intra-op 01/24/18: Conclusion: 1. Normal biventricular systolic function 2. LVH 3. No significant valvular heart disease (trivial MR, trivial AI) 4. Normal JING structure and velocities ?? CXR: - The lungs are clear. There is no focal consolidation, pleural effusion, or pneumothorax. -The cardiomediastinal silhouette is normal. No acute osseous injury is identified. CT SCAN 12/21/17: - Mildly dilated/ectatic aortic root measuring 4.1 cm in diameter. No significant atherosclerotic calcifications at the aortic root. - Multiple right upper lobe subpleural nodules measuring up to 3 mm. If the patient is high risk, follow-up CT is optional at 12 months. If the patient is low risk, no follow-up is required. ?? Carotid duplex 12/21/17 : - No hemodynamically significant stenosis of the carotid arteries bilaterally. - Antegrade flow in the vertebral arteries bilaterally ASSESSMENT: Patient Active Problem List Diagnosis ??? CAD (coronary artery disease) ??? HTN (hypertension) ??? DM (diabetes mellitus) ??? Status post cardiac surgery Yaya Vazquez is a 57 y.o. male with a PMHx significant for DM, and CAD. S/P CABG x 3 on 01/24/18. PLAN: Neuro: - Post op pain: prn Fentanyl and Percocet CV: S/P CABG x 3 MUNIZ to LAD, Radial to OM, SVG to PDA Most recent Echo: normal EF - BB: metoprolol increased to 25 mg PO BID - ASA: 81 mg - Statin: Lipitor 40 mg - Lasix increased to 40 mg IV BID Resp: - Wean oxygen for SpO2 greater than 90% - CXR daily - IS, nebs, OOB to chair FEN/GI: - BMP and electrolytes daily and treat as indicated - Cardiac diet - Protonix PO daily - Bowel regimen Nephro/: - Pre-Op Cr 0.9, today 0.9 Heme: - Acute blood loss anemia - CBC daily ID/Microbiology: - A-febrile, WBC wnl Endo: Lantus and SSI Wounds: Continue CHG and betadine daily and PRN Lines: - Continue: PIV's, pleural CT Prophy: - VTE: SCD's and sq heparin - GI: Protonix - SCIP: completed - PNA: IS, nebs, OOB PT/OT: ordered Dispo: continue floor care, SW consulted for D/C needs Ethan Hancock MD 01/27/2018 6:20 PM As above. Doing well, has no complaints. Increase lasix, wean O2, continue chest tube. On ASA, statin, metoprolol. Likely home in 1-2 days depending on chest tube. Fabienne Cardona MD 01/28/2018 2:30 AM * Jodi Hernandez, PT - 01/26/2018 3:30 PM CDT [facility] Physical Medicine and Rehabilitation PhysicalTherapy Progress Note Patient: Yaya Vazquez Med Record Number: [id number] Date of : 1960 Age: 57 y.o. Discharge Recommendation: Recommendation: Patient will benefit from intense 3 hour per day multidisciplinary inpatient therapies Plan: Treatment/Interventions: Functional transfer training;Gait training;Endurance training;Patient/family training;Equipment eval/education;Bed mobility PT Frequency: 6-7 Times/Week Equipment Recommended: (will continue to assess) PT Weekend Patient: Yes Subjective: Agrees to therapy. Patient currently using no assistive device. Mental Status: alert and oriented x 4 At start of therapy session, patient found in bed and with no alarm. Pain: Patient has 5 out of 10 pain in chest region/incision with mobility. Nurse notified. Weight Bearing Status: WBAT Mobility: Rolling: Moderate assist Supine to Sit:Moderate assist Sit to Supine: Moderate assist Sit to Stand:Moderate assist Bed to Chair: not tested Gait: Device:none Assistance: Minimal assist Distance: 210 ft Deviations: wide base of support, absent heel strike intermittently, decreased step length bilaterally Oxygen Used: yes Pre-Activity: HR - 74bpm, SpO2 - 96% on RA During Activity: HR - 98bpm, SpO2 - 86% on RA -- maintains 94% on 2L Post-Activity: HR - 89bpm, SpO2 - 95% on 2 L Balance: Static Sitting: good Dynamic sitting: not tested Static Standing: fair Dynamic Standing: not tested Stairs: not tested Activity Tolerance: Patient's activity tolerance: fair Treatment/therapeutic Exercise: bed mobility, sitting balance, standing balance, gait training without device, PLB, IS Patient/Family Teaching: Gait, Mobility and Home Safety Patient demonstrated Good understanding of instructions given. Short Term Goals: Goal Formation With patient, Patient will transfer supine to/from sit With stand by assist, Sit to stand goal: With stand by assist, Patient will ambulate 151- 200 feet and With stand by assist and Patient will go up/down stairs 3-5 stairs, With stand by assist and With rail ? Investigative Research Specialist Goal(s): Patient to discharge to appropriate next level of inpatient care Update Treatment Plan: continue current plan If patient is discharged from the facility, this note serves as a discharge note if further physical therapy visits did not occur. Following therapy session, patient left in bed, with bed alarm on, with call light within reach andwith Sage SHARMA aware. Jodi Hernandez, ANDREY 01/26/2018 * Fabienne Cardona MD - 01/26/2018 12:38 PM CDT [facility] Cardiac Surgery Progress Note Admit: 01/24/2018 6:44 AM Date: January 26, 2018 Length of Stay: 2 Attending: Conner Blancas MD POD:2 Days Post-Op S/P: CABG x 3 (MUNIZ to LAD, Radial to OM, SVG to PDA) Private Circus Hand: Nehemias Dennis PCP: Lisy Olmedo MD Referring Facility: [facility] SUBJECTIVE: Recent Events: 01/26/18 POD 2: No acute events overnight. Yesterday, EKG was noted to have some ST changes, cardiology was consulted and they recommended an ECHO. ECHO was done with no wall motion abnormalities. Thepatient hemodynamic status improved s/p 2 L of NS. [place], cordis, A-line, Wires, meds, beltran, were d/c. Transferred to the floor.Started on ASA and Lipitor. History and Hospital Course: Yaya Vazquez is a 57 y.o. male with a PMHx significant for DM who underwent work up for angina was found to have multivessel coronary artery disease presents this AM for CABG. Today he mentions he feels well, no interval changes since last vist. 01/24/18: The patient underwent a CABG x 3 (MUNIZ to LAD, Radial to OM, SVG to PDA) 01/25/18 POD 1: The pt was extubated yesterday. No acute events over night, did not require any pressors over night. This morning, prior to rounds, the patient was sat up out of bed to the chair. He became hypotensive, with a drop in CI, CVP, and PAPs, with assiciated dizziness. Vaso and Levo were restarted immediately, and a 500 NS bolus was given. The patient was brought back to bed and another 1 L of NS was given. Vaso and Levo were eventually weaned off. The patient was seen again after rounds states he feels much better then this morning. No SOB, pain controlled with pain meds. OBJECTIVE: Scheduled Medications: metoprolol tartrate 12.5 mg Oral BID furosemide 20 mg Intravenous BID aspirin 81 mg Oral QDAY atorvastatin 20 mg Oral AT BEDTIME polyethylene glycol 3350 17 g Oral QDAY senna-docusate 1 tablet Oral AT BEDTIME pantoprazole EC 40 mg Oral QDAY insulin aspart 0-12 Units Subcutaneous TID WC [START ON 01/27/2018] insulin glargine 5 Units Subcutaneous QDAY 0.9% NaCl 10 mL Intracatheter q8h albuterol-ipratropium 3 mL Inhalation q4h mupirocin calcium Topical BID Continuous Medications: PRN Medications: bisacodyl 10 mg QDAY PRN magnesium hydroxide 30 mL QDAY PRN 0.9% NaCl 10 mL PRN potassium chloride 20 mEq PRN magnesium sulfate 2 g PRN ondansetron 4 mg q6h PRN glucose (Diabetic Use) PRN dextrose 25-50 mL PRN glucagon 1 mg PRN oxyCODONE-acetaminophen 1 tablet q4h PRN Or oxyCODONE-acetaminophen 2 tablet q4h PRN fentaNYL (PF) 25 mcg q1h PRN Or fentaNYL (PF) 50 mcg q1h PRN calcium gluconate 2 g PRN Vital Signs: BP 112/73 Pulse 84 Temp 98.1 ??F (36.7 ??C) Resp 18 Ht 6' 4 (1.93 m) Wt 298 lb 9.6 oz (135.4 kg) SpO2 99% BMI 36.35 kg/m2 Temp: [98.1 ??F (36.7 ??C)-98.9 ??F (37.2 ??C)] 98.1 ??F (36.7 ??C) Pulse: [73-87] 84 Resp: [17-31] 18 BP: (112-138)/(57-84) 112/73 Arterial Line BP #2: (112-134)/(53-64) 112/53 CI: 2.1-3.3 SvO2: 60-75% PAS/PAD: 27-37/12-26 RA/CVP: 7-18 Diet: DIET CARDIAC Is&Os: 01/25 0701 - 01/26 0700 In: 661 [P.O.:600; I.V.:61] Out: 3075 [Urine:2600; Drains:475] Date 01/25/18699 - 01/26/1865801/26/18699 - 01/27/18 0659 Shift 1479-4770 9153-3013 24 Hour Total 9150-4058 4873-2010 24 Hour Total I N T A K E P.O. 600 600 I.V. (mL/kg/hr) 61 (0) 61 (0) Shift Total (mL/kg) 661 (4.9) 661 (4.9) O U T P U T Urine (mL/kg/hr) 1475 (0.9) 1200 (0.7) 2675 (0.8) 1725 1725 Drains 280 195 475 50 50 Shift Total (mL/kg) 1755 (13) 1395 (10.3) 3150 (23.3) 1775 (13.1) 1775 (13.1) [facility] -1094 -1395 -2489 -1775 -1775 Weight (kg) 135.4 135.4 135.4 135.4 135.4 135.4 Physical Exam: General appearance: normal, alert,cooperative, no distress, appears stated age Lungs: clear to auscultation bilaterally, no crackles, no wheezes, chest expansion normal Chest wall: sternal incision well approximated, no erythema, or drainage. CTwith serosanguinous drainage Heart: RRR, normal S1 and S2, no murmur, SR per tele. Abdomen: soft, non-tender, non-distended Extremities: extremities normal, atraumatic, no cyanosis.1 + edema. Vein harvest sight to RLE well approximated, no drainage or erythema, with healing ecchymosis along vein harvest tract. Pulses: 2+ and symmetric bilateral radial and DP pulses Skin: Skin color, texture, turgor normal. No rashes or lesions Neurologic: Grossly normal, no focal neuro deficits, A/O x 3 Arterial Blood Gas result: Recent Labs Component Name 01/25/18 0026 01/24/18 1917 01/24/18 1706 01/24/18 1540 01/24/18 1429 PHART 7.42 7.40 7.35 7.26* 7.27* [id number] 38 40 44 56* 50* PO2ART 82 102* 91 120* 122* [id number] 24.3 24.6 23.5 24.5 22.7 BEART -0.1 -0.1 -2.1* -2.8* -4.1* Recent Labs Component Name 01/26/18 0652 01/25/18 0026 01/24/18 1540 WBC 9.2 8.4 9.5 HGB 8.9* 8.7* 8.9* HCT 28.3* 27.1* 27.9* PLT 133* 155 156 Recent Labs Component Name 01/26/18 1136 01/26/18 0652 01/26/18 0620 01/25/18 0026 01/24/18 1542 01/24/18 1345 01/24/18 1247 01/24/18 0953 NA - 138 - - 137 - 139 - - - K - - - - - - - 5.2 6.1* 4.6 CL - 105 - - 104 - 104 - - - CO2 - 24 - - 21* - 23 - - - BUN - 9 - - 15 - 15 - - - CREATININE - 1.0 - - 0.9 - 0.8 - - - GLU 170* 158* 170* - 131* - 120* - - - CALCIUM - 8.9 - - 9.3 - 9.2 - - - MAGNESIUM - 1.4* - - 2.0 - 2.2 - - - - = values in this interval not displayed. Recent Labs Component Name 01/11/18 1548 PROT 8.2 ALB 3.8 TBILI 0.7 AST 14 ALT 13 ALKPHOS 56 Recent Labs Component Name 01/25/18 0026 01/24/18 1540 01/24/18 1345 01/11/18 1548 INR 1.1 1.2 1.4 0.9 PTT - 35.7 >212.0* 28.6 Recent Imaging: CXR 01/25: Official read pending Preop Imaging [facility] Intra-op 01/24/18: Conclusion: 1. Normal biventricular systolic function 2. LVH 3. No significant valvular heart disease (trivial MR, trivial AI) 4. Normal JING structure and velocities ?? CXR: - The lungs are clear. There is no focal consolidation, pleural effusion, or pneumothorax. -The cardiomediastinal silhouette is normal. No acute osseous injury is identified. CT SCAN 12/21/17: - Mildly dilated/ectatic aortic root measuring 4.1 cm in diameter. No significant atherosclerotic calcifications at the aortic root. - Multiple right upper lobe subpleural nodules measuring up to 3 mm. If the patient is high risk, follow-up CT is optional at 12 months. If the patient is low risk, no follow-up is required. ?? Carotid duplex 12/21/17 : - No hemodynamically significant stenosis of the carotid arteries bilaterally. - Antegrade flow in the vertebral arteries bilaterally ASSESSMENT: Patient Active Problem List Diagnosis ??? CAD (coronary artery disease) ??? HTN (hypertension) ??? DM (diabetes mellitus) ??? Status post cardiac surgery Yaya Vazquez is a 57 y.o. male with a PMHx significant for DM, and CAD. S/P CABG x 3 on 01/24/18. PLAN: Neuro: - Post op pain: prn Fentanyl and Percocet CV: S/P CABG x 3 MUNIZ to LAD, Radial to OM, SVG to PDA Most recent Echo: normal EF (awaiting official read for exact EF percentage) - BB: metoprolol 12.5 mg PO BID started - ASA: 81 mg - Statin: Lipitor 40 mg - Lasix 20 mg IV BID started Resp: - Wean oxygen for SpO2 greater than 90% - CXR daily - IS, nebs, OOB to chair FEN/GI: - BMP and electrolytes daily and treat as indicated - Cardiac diet - Protonix PO daily - Bowel regimen started Nephro/: - Pre-Op Cr 0.9, today 0.9 - Will d/c beltran later today Heme: - Acute blood loss anemia - CBC daily ID/Microbiology: - A-febrile, WBC wnl Endo: convert Insulin gtt to Lantus and SSI Wounds: Continue CHG and betadine daily and PRN Lines: - Continue: PIV's, pleural CT Prophy: - VTE: SCD's and sq heparin - GI: Protonix - SCIP: completed - PNA: IS, nebs, OOB PT/OT: ordered Dispo: continue floor care, SW consulted for D/C needs Ethan Hancock MD 01/26/2018 12:38 PM As above. Patient without complaints. Start Lasix, wean O2. Plt slightly down - stop heparin, checkHITT. Continue left pleural tube. On ASA, statin. Start metoprolol. Fabienne Cardona MD 01/26/2018 11:04 PM * Sage Pena RN - 01/25/2018 6:14 PM CDT Pt received from 9 ICU via bed, vss at 37.1,80,138/72, O2 sats 94% RA, Dr Elieser Gustafson notified of pt arrival. * Adriana Santana RN - 01/25/2018 5:10 PM CDT Cordis to RIJ dc'd, mediastinal CT dc'd and Beltran out. Urinal given for patient to use. Pt to go toroom 911. Attempting to call report. * Christi Wolff, OT - 01/25/2018 3:16 PM CDT [facility] Physical Medicine and Rehabilitation Occupational Therapy Initial Evaluation Note Patient: Yaya Vazquez [facility] Record Number: [id number] Date of : 1960 Age: 57 y.o. Recommendation: Patient will benefit from intense 3 hour per day multidisciplinary inpatient therapies Treatment Interventions: ADL retraining;Functional transfer training;UE strengthening/ROM;Endurancetraining;Equipment eval/education;Compensatory technique education;Continued evaluation OT Weekend Patient: Yes Plan: OT Frequency: Other (see comment) (6-7 Times/Week) Physician Orders: Evaluation and Treat Precautions: Weight Bearing Status: (WBAT) Medical/Surgical Precaution: Yes Medical/Surgical Precautions: Sternal DIAGNOSIS: Patient Active Problem List Diagnosis ??? CAD (coronary artery disease) ??? HTN (hypertension) ??? DM (diabetes mellitus) ??? Status post cardiac surgery Past Medical History: Diagnosis Date ??? CAD (coronary artery disease) ??? DM (diabetes mellitus) ??? HTN (hypertension) SUBJECTIVE / PATIENT GOALS: I feel pretty good. Home living: Type of Residence: Private Residence Lives with:: Sister (pt recently from spouse) Steps to Enter: 3 Handrails: Outdoor Home Structure: One Story Bathroom : Tub/Shower Combo Equipment At Home: None Prior Function: Mobility: Ambulate-In Community;Independent Fallen Within 6 Mos: No Have Help at Home?: Yes, there is help at home now How often is assistance provided?: part-time Level of Help Sufficient?: No Oxygen at Home: No Activity at Home: Active Vision: No impairment Hearing Exceptions: No impairment Who manages medications?: self At start of therapy session, patient found in patient bedside chair and with no alarm. Pain: Patient denies pain Follow-up for pain: No follow-up for pain indicated and patient agreed to proceed with treatment OBJECTIVE: General Appearance: 57-year-old male sitting up with multiple lines in NAD Precautions: IV's: Peripheral line, Arterial line and [place] Quyen, Catheter, Chest tube (2) and Oxygen (2L via nasal cannula) Edema: None noted in BUE Vital Signs:(*Assess the 3 levels of oxygen saturations both for room air and 02 unless rest on room air is 88% or less). Pre-activity BP: HR: O2 SAT: L 02 Room air Peak activity BP: HR: O2 SAT: L 02 Room air Post cool down BP: HR: O2 SAT: L 02 Room air Cognitive: Alert and oriented x4, follows 1- and 2-step commands 100%, good overall insight and safety awareness. Perceptual: WFL Upper extremity range of motion: WFL Upper extremity strength: WFL Tone: Not tested Coordination: WFL Sensation: Intact Patient's activity tolerance: good FUNCTIONAL MOBILITY Not tested Independent Stand by Assist Minimal Moderate Maximum Dependent Rolling x Supine to/from sit x2 Sit to/from Standing x2 Bed to/from chair x2 Functional mobility of ambulation to sink/bathroom with: Minimal assist of 2 without assistive device Balance: Static Sitting: good Dynamic Sitting: good Static Standing: fair plus Dynamic Standing: fair Feeding: Independent Self-Care: Maximal assistance to don socks; minimal assistance for steadying to complete grooming tasks standing at the sink General Observation: Patient demonstrates good overall rehab potential Splint Issued/Checked: none TREATMENT / EDUCATION / EVALUATION: Purpose of Occupational Therapy evaluation explained. While performing mobility and self care, Patient was instructed in: Functional mobility training/weight bearing status, Safety awareness/fall precaution, Pursed lip breathing, Self care training and sternal precautions Presented to patient who demonstrates Good understanding of instructions given. INFORMED CONSENT TO TREATMENT: Plan of care including recommended therapy, goals and frequency, as well as potential risks and benefits of treatment/assessment explained to patient. Patient understands and agrees to proceed. ASSESSMENT: Functional performance limited due to: limited activities of daily living, pain, decreased mobilityand endurance, Patient continues to benefit from skilled Occupational Therapy to achieve the following functional goals. and Equipment Issued: gait belt Nurse and PT contacted regarding patient status and/or discharge plan. Short Term Goals: Patient will perform grooming Standing at sink and With stand by assist Patient will perform lower extremity dressing With mod assist Patient will transfer to toilet With mod assist and X 1 Patient will perform supine to sit With mod assist and X 1 Patient will perform sit to stand With mod assist and X 1 Patient will tolerate treatment 20 minutes and with good endurance Education: good, safety education and cardiac educatiojn Investigative Research Specialist Goal: Patient to discharge to appropriate next level of inpatient care Plan: OT Frequency: Other (see comment) (6-7 Times/Week) If patient is discharged from the facility, this note serves as a discharge summary if further occupational therapy visits did not occur. Following therapy session, patient left in bed, with call light within reach, with RNAdriana aware and with RN/CP rehab cues written on white board. Christi Wolff OT 01/25/2018 * Penny Gordon, PT - 01/25/2018 2:12 PM CDT [facility] Physical Medicine and Rehabilitation PhysicalTherapy Initial Evaluation Note Patient: Yaya Vazquez [facility] Record Number: [id number] Date of : 1960 Age: 57 y.o. Recommendation: PT Frequency: 6-7 Times/Week Treatment/Interventions: Functional transfer training;Gait training;Endurance training;Patient/family training;Equipment eval/education;Bed mobility Recommendation: Patient will benefit from intense 3 hour per day multidisciplinary inpatient therapies Equipment Recommended: (will continue to assess) PT Weekend Patient: Yes Patient currently using no assistive device. Nurse and Occupational Therapy contacted regarding patient status and/or discharge plan. Physician Orders: Evaluation and Treat PRECAUTIONS: Fall Activity Level as tolerated DIAGNOSIS: Patient Active Problem List Diagnosis ??? CAD (coronary artery disease) ??? HTN (hypertension) ??? DM (diabetes mellitus) ??? Status post cardiac surgery Past Medical History: Diagnosis Date ??? CAD (coronary artery disease) ??? DM (diabetes mellitus) ??? HTN (hypertension) SUBJECTIVE: I'm feeling pretty good PATIENT GOALS: To feel better and go home Home living: Type of Residence: Private Residence Lives with:: Sister (pt recently from spouse) Steps to Enter: 3 Handrails: Outdoor Home Structure: One Story Bathroom : Tub/Shower Combo Prior Function: Mobility: Ambulate-In Community;Independent Fallen Within 6 Mos: No Have Help at Home?: Yes, there is help at home now How often is assistance provided?: part-time Level of Help Sufficient?: No Oxygen at Home: No Activity at Home: Active Vision: No impairment Hearing Exceptions: No impairment Who manages medications?: self At start of therapy session, patient found in patient bedside chair and with no alarm Pain: Patient has no c/o pain at this time Follow-up for pain: No follow-up for pain indicated and patient agreed to proceed with treatment OBJECTIVE: General Appearance: Adult male, up in chair, NAD Precautions: IV's: Arterial line and [place] Quyen, Catheter, Chest tube and Oxygen Skin, Incisions, Edema: Sternal incision open to air; chest tube insertions covered by bandage Other: Vital Signs:(*Assess the 3 levels of oxygen saturations both for room air and 02 unless rest on room air is 88% or less). Rest: BP: HR: O2 SAT: L 02 Room air Post Ex/gait: BP: HR: O2 SAT: L 02 Room air Post cool down BP: HR: O2 SAT: L 02 Room air Observations: vital signs stable throughout therapy session per ICU monitor MENTAL STATUS: Alert and oriented times x3 DIRECTION FOLLOWING: Able to follow multi-step commands 100% ROM: ADAM LEs WFL; slightly decreased knee extension/flexion on R due to incisions STRENGTH: ADAM LEs WFL SENSATION: grossly intact light touch sensation ADAM LEs FUNCTIONAL MOBILITY Not Tested Not Applicable Independent Stand by Assist Minimal Moderate Maximum Dependent Rolling x Scooting x Supine to/from sit x2 (sit to supine) Sit to/from Stand x2 (from chair) Bed to/ chair x Observation: BALANCE: Sitting Static: good minus Dynamic: good minus Standing Static: fair Dynamic: fair Observation: GAIT: Weight Bearing: WBT Distance: pt ambulated 5' x2 to/from sink Device: none Assistance: Minimal assist of 2 Balance: fair Steps: not assessed fair endurance Observation: decreased jose, decreased foot clearance, decreased step length ACTIVITY TOLERANCE: Patient's activity tolerance: fair TREATMENT : evaluation, bed mobility training, transfer training, gait training, balance activitiesand monitoring of vitals EDUCATION: While performing PT, Patient was instructed in:Functional mobility training/weight bearing status, Energy conservation, Pulmonary education, Safety awareness/fall precaution, Home exerciseprogram, Discharge plan and Self care training Patient demonstrated Good understanding of instructions given. INFORMED CONSENT TO TREATMENT: Plan of care including recommended therapy, goals and frequency, discussed with patient who understands and agrees to proceed. ASSESSMENT: Patient's functional performance presently limited due to: medical condition, precautions, endurance, bed mobility, transfers, gait, safety awareness and balance and Patient would benefit from additional Physical Therapy to achieve the following functional goals to enhance independence. Short Term Goals: Goal Formation With patient, Patient will transfer supine to/from sit With stand by assist, Sit to stand goal: With stand by assist, Patient will ambulate 151- 200 feet and With stand by assist and Patient will go up/down stairs 3-5 stairs, With stand by assist and With rail Investigative Research Specialist Goal(s): Patient to discharge to appropriate next level of inpatient care Equipment Issued: gait belt Plan: If patient is discharged from the facility, this note serves as a discharge summary if further physical therapy visits did not occur. Following therapy session, patient left in bed, with bed alarm on, with call light within reach, with Adriana SHARMA aware and with RN/CP rehab cues written on white board Penny Gordon PT 01/25/2018 * Adriana Santana RN - 01/25/2018 1:07 PM CDT No change. Advance diet as tolerated. Improved BP. * Adriana Santana RN - 01/25/2018 10:35 AM CDT Slowly weaning pressors. Vs improving. * María Chacon MSW - 01/25/2018 10:30 AM CDT SW attempted to complete an assessment with pt. Pt having a test/procedure at this time. SW will attempt to meet with pt at a later time. NOAH Breaux 01/25/2018 11:10 AM [phone] * Penny Gordon, PT - 01/25/2018 10:09 AM CDT [facility] Department of Physical Medicine & Rehabilitation Progress Note Patient: Yaya Vazquez [facility] Record Number: [id number] Date of : 1960 Age: 57 y.o. 01/25/18 1009 Missed Visit Missed Visit RN Cancel Name of RN Adriana Will check back in PM. Penny Gordon, PT 01/25/2018 10:09 AM * Christi Wolff, OT - 01/25/2018 10:03 AM CDT [facility] Department of Physical Medicine & Rehabilitation Progress Note Patient: Yaya Vazquez [facility] Record Number: [id number] Date of : 1960 Age: 57 y.o. 01/25/18 1000 Missed Visit Missed Visit RN Cancel Name of RN Adriana Per RN, hold therapy this AM, but okay to check back in PM. OT will continue to follow. * Mary Colindres PA-C - 01/25/2018 10:02 AM CDT [facility] Cardiac Surgery Progress Note Admit: 01/24/2018 6:44 AM Date: January 25, 2018 Length of Stay: 1 Attending: Fabienne Cardona MD POD:1 Day Post-Op S/P: CABG x 3 (MUNIZ to LAD, Radial to OM, SVG to PDA) Private Circus Hand: Nehemias Dennis PCP: Lisy Olmedo MD Referring Facility: [facility] SUBJECTIVE: Recent Events: 01/25/17 POD 1: The pt was extubated yesterday. No acute events over night, did not require any pressors over night. This morning, prior to rounds, the patient was sat up out of bed to the chair. He became hypotensive, with a drop in CI, CVP, and PAPs, with assiciated dizziness. Vaso and Levo were restarted immediately, and a 500 NS bolus was given. The patient was brought back to bed and another 1 L of NS was given. Vaso and Levo were eventually weaned off. The patient was seen again after rounds states he feels much better then this morning. No SOB, pain controlled with pain meds. History and Hospital Course: Yaya Vazquez is a 57 y.o. male with a PMHx significant for DM who underwent work up for angina was found to have multivessel coronary artery disease presents this AM for CABG. Today he mentions he feels well, no interval changes since last vist. 01/24/17: The patient underwent a CABG x 3 (MUNIZ to LAD, Radial to OM, SVG to PDA) OBJECTIVE: Scheduled Medications: aspirin 81 mg Oral QDAY atorvastatin 20 mg Oral AT BEDTIME polyethylene glycol 3350 17 g Oral QDAY senna-docusate 1 tablet Oral AT BEDTIME pantoprazole EC 40 mg Oral QDAY insulin aspart 0-12 Units Subcutaneous TID WC insulin glargine 15 Units Subcutaneous QDAY Followed by [START ON 01/26/2018] insulin glargine 10 Units Subcutaneous QDAY Followed by [START ON 01/27/2018] insulin glargine 5 Units Subcutaneous QDAY 0.9% NaCl 10 mL Intracatheter q8h albuterol-ipratropium 3 mL Inhalation q4h mupirocin calcium Topical BID heparin 5,000 Units Subcutaneous q8h Continuous Medications: vasopressin 0-0.04 Units/min Last Rate: 0.02 Units/min (01/25/18 0711) norepinephrine 0-0.4 mcg/kg/min Last Rate: 0.015 mcg/kg/min (01/25/18 0754) insulin regular human (humuLIN R; novoLIN R) 100 units in 100 mL infusion 0-26.5 Units/hr Last Rate: 1.6 Units/hr (01/25/18 0036) PRN Medications: bisacodyl 10 mg QDAY PRN magnesium hydroxide 30 mL QDAY PRN 0.9% NaCl 10 mL PRN potassium chloride 20 mEq PRN magnesium sulfate 2 g PRN ondansetron 4 mg q6h PRN insulin regular human 0-27 Units BOLUS FROM BAG PRN glucose (Diabetic Use) PRN dextrose 25-50 mL PRN glucagon 1 mg PRN oxyCODONE-acetaminophen 1 tablet q4h PRN Or oxyCODONE-acetaminophen 2 tablet q4h PRN fentaNYL (PF) 25 mcg q1h PRN Or fentaNYL (PF) 50 mcg q1h PRN calcium gluconate 2 g PRN Vital Signs: BP 100/65 Pulse 60 Temp 98 ??F (36.7 ??C) Resp 21 Ht 6' 4 (1.93 m) Wt 298 lb 9.6 oz (135.4 kg) SpO2 96% BMI 36.35 kg/m2 Temp: [97.9 ??F (36.6 ??C)-99.4 ??F (37.4 ??C)] 98 ??F (36.7 ??C) Pulse: [0-90] 60 Resp: [16-32] 21 BP: (100-127)/(65-80) 100/65 Arterial Line BP #2: (90-143)/(48-75) 114/53 O2 %: [60 %] 60 % O2 %: [60 %] 60 % CI: 2.1-3.3 SvO2: 60-75% PAS/PAD: 27-37/12- RA/CVP: 7-18 Diet: DIET DIABETIC CONSIST CARB Is&Os: 01/24 701 - 01/25 700 In: 3089.6 [I.V.:3089.6] Out: 3135 [Urine:2475; Drains:660] Date 01/24/18699 - 01/25/1865801/25/18699 - 01/26/18 0659 Shift 5852-6223 7430-8366 24 Hour Total 8966-9696 9948-9127 24 Hour Total I N T A K E I.V. (mL/kg/hr) 3000 (1.8) 89.6 (0.1) 3089.6 (1) Shift Total (mL/kg) 3000 (22.1) 89.6 (0.7) 3089.6 (22.8) O U T P U T Urine (mL/kg/hr) 1005 (0.6) 1395 (0.9) 2400 (0.7) 250 250 Drains 180 480 660 60 60 Shift Total (mL/kg) 1185 (8.7) 1875 (13.8) 3060 (22.6) 310 (2.3) 310 (2.3) NET 1815 -1785.4 29.6 -310 -310 Weight (kg) 135.4 135.4 135.4 135.4 135.4 135.4 Physical Exam: General appearance: normal, alert, fatigued, cooperative, no distress, appears stated age Lungs: clear to auscultation bilaterally, no crackles, no wheezes, chest expansion normal Chest wall: sternal incision well approximated, no erythema, or drainage. Pacing wires present CT x3 with serosanguinous drainage, no air leak. Heart: RRR, normal S1 and S2, no murmur, SR in the 80's per tele. Abdomen: soft, non-tender, non-distended Extremities: extremities normal, atraumatic, no cyanosis.1 + edema. Vein harvest sight to RLE well approximated, no drainage or erythema, with healing ecchymosis along vein harvest tract. Pulses: 2+ and symmetric bilateral radial and DP pulses Skin: Skin color, texture, turgor normal. No rashes or lesions Neurologic: Grossly normal, no focal neuro deficits, A/O x 3 Arterial Blood Gas result: Recent Labs Component Name 01/25/18 0026 01/24/18 1917 01/24/18 1706 01/24/18 1540 01/24/18 1429 PHART 7.42 7.40 7.35 7.26* 7.27* [id number] 38 40 44 56* 50* PO2ART 82 102* 91 120* 122* MRR2HWC 24.3 24.6 23.5 24.5 22.7 BEART -0.1 -0.1 -2.1* -2.8* -4.1* Recent Labs Component Name 01/25/18 0026 01/24/18 1540 01/24/18 1345 WBC 8.4 9.5 11.4* HGB 8.7* 8.9* 9.5* HCT 27.1* 27.9* 29.6* PLT 155 156 170 Recent Labs Component Name 01/25/18 0854 01/25/18 0751 01/25/18 0629 01/25/18 0026 01/24/18 1542 01/24/18 1345 01/24/18 1247 01/24/18 0953 01/11/18 1548 NA - - - - 137 - 139 - - - - 140 K - - - - - - - 5.2 6.1* 4.6 - - CL - - - - 104 - 104 - - - - 102 CO2 - - - - 21* - 23 - - - - 27 BUN - - - - 15 - 15 - - - - 15 CREATININE - - - - 0.9 - 0.8 - - - - 0.9 GLU 135* 134* 128* - 131* - 120* - - - - 81 CALCIUM - - - - 9.3 - 9.2 - - - - 9.6 MAGNESIUM - - - - 2.0 - 2.2 - - - - 1.3* - = values in this interval not displayed. Recent Labs Component Name 01/11/18 1548 PROT 8.2 ALB 3.8 TBILI 0.7 AST 14 ALT 13 ALKPHOS 56 Recent Labs Component Name 01/25/18 0026 01/24/18 1540 01/24/18 1345 01/11/18 1548 INR 1.1 1.2 1.4 0.9 PTT - 35.7 >212.0* 28.6 Recent Imaging: CXR 01/25: Official read pending Preop Imaging [facility] Intra-op 01/24/18: Conclusion: 1. Normal biventricular systolic function 2. LVH 3. No significant valvular heart disease (trivial MR, trivial AI) 4. Normal JING structure and velocities ?? CXR: - The lungs are clear. There is no focal consolidation, pleural effusion, or pneumothorax. -The cardiomediastinal silhouette is normal. No acute osseous injury is identified. CT SCAN 12/21/17: - Mildly dilated/ectatic aortic root measuring 4.1 cm in diameter. No significant atherosclerotic calcifications at the aortic root. - Multiple right upper lobe subpleural nodules measuring up to 3 mm. If the patient is high risk, follow-up CT is optional at 12 months. If the patient is low risk, no follow-up is required. ?? Carotid duplex 12/21/17 : - No hemodynamically significant stenosis of the carotid arteries bilaterally. - Antegrade flow in the vertebral arteries bilaterally ASSESSMENT: Patient Active Problem List Diagnosis ??? CAD (coronary artery disease) ??? HTN (hypertension) ??? DM (diabetes mellitus) ??? Status post cardiac surgery Yaya Vazquez is a 57 y.o. male with a PMHx significant for DM, and CAD. S/P CABG x 3 on 01/24/18. PLAN: Neuro: - Post op pain: prn Fentanyl and Percocet CV: S/P CABG x 3 MUNIZ to LAD, Radial to OM, SVG to PDA Most recent Echo: normal EF (awaiting official read for exact EF percentage) - 500 NS bolus followed by 1L NS Bolus, followed by 500 NS bolus for hypotension. - Wean vaso and levo off - BB: Hold due to hypotension and need for V-pacing over night - ASA: start 81 mg - Statin: start Lipitor 40 mg - SHON/ARB: hold due to hypotension this morning. - EKG to assess for ST changes noted on monitor Resp: - Wean oxygen for SpO2 greater than 90% - CXR daily - IS, nebs, OOB to chair FEN/GI: - BMP and electrolytes daily and treat as indicated - CLD then advance to Cardiac diet - Protonix PO daily - Bowel regimen started Nephro/: - Pre-Op Cr 0.9, today 0.9 - Will d/c beltran later today Heme: - Acute blood loss anemia (if 2g drop in Hgb from pre-op to post-op use this dx. Do not need to specify why) - CBC daily ID/Microbiology: - A-febrile, WBC wnl Endo: convert Insulin gtt to Lantus and SSI Wounds: Continue CHG and betadine daily and PRN Lines: - D/C: Loco, kayleigh, A-line, beltran, pacing wires, and Mediastinal CT's. - Continue: PIV's, pleural CT Prophy: - VTE: SCD's and sq heparin - GI: Protonix - SCIP: will complete today - PNA: IS, nebs, OOB PT/OT: ordered Dispo: Possible transfer to floor later today if able to wean off pressors and remains hemodynamically stable, GRABIEL consulted for D/C needs Mary Colindres PA-C 01/25/2018 10:02 AM EKG was noted to have thiago ST changes, cardiology was consulted they recommended an ECHO. ECHO was done with no wall motion abnormalities. The patient hemodynamic status improved s/p 1.5 L of NS. Loco, kayleigh, A-line were d/c. Transfer to the floor. Mary Colindres PA-C 01/25/2018 3:55 PM * Adriana Santana, RN - 01/25/2018 9:52 AM CDT Problem: Low Fall Risk (Score 7-10) Goal: Patient will remain as independent as possible. Outcome: Ongoing Continue to maintain fall precautions per HD scale * Niru Vásquez RN - 01/25/2018 6:30 AM CDT Pt up in chair. Blood pressure decreased to maps in 40s. Aimee at bedside. 500cc ns bolus given. Levo and vaso restarted. Pt returned to bed. * Emmy Mckeon - 01/24/2018 8:26 AM CDT Hot Frame Tender responded to referral from ACU to complete Durable Power of Band Saw Operator for patient. Chaplainvisited with patient and two sisters Carol & Jenn at bedside. Hot Frame Tender completed DPOA for patient, notarized by Niru SPAIN in ED, made copies for all parties, and placed original in patient's chart. Hot Frame Tender made patient and family aware of availability of pastoral care as needed. OR/OR 01/24/18 0730 01/24/18 0745 01/24/18 0800 Visit Type Assessment Date 01/24/18 -- -- Hot Frame [facility] Patient Leah -- -- Pastoral Care Visit Type Advanced Directive Consult Initial Visit Order Response Encounter Type Patient and Family;Consult with Staff -- -- documented in this encounter H&P Notes * Kavon Daley MD - 01/24/2018 9:44 AM CDT [facility] Short Pre-Procedure History and Physical Patient: Yaya Vazquez Age: 57 y.o. Date of : 1960 Date of Admission: (Not on file) Date: 01/24/2018 Location: OR 10 Procedure: Intraoperative transesophageal echocardiogram Pre-Procedure Assessment/Data Subjective: Patient is a 57 y.o. male presenting with the chief complaint of chest pain Brief Description: 57 year-old male with relevant PMHx severe multivessel CAD. Initially underwent stress test for angina, prompting cardiac catheterization which revealed proximal LAD, distal RCA, and serial lesions of the LCx arteries Patient also with mild LV systolic dysfunction 47% per nuclearstudy prior to cardiac catheterization. Thus, the patient is to undergo CABG with intraoperative AMANDO to evaluate for concomitant valvular heart disease. Patient Active Problem List Diagnosis Date Noted ??? CAD (coronary artery disease) 01/23/2018 Priority: Not Prioritized ??? HTN (hypertension) 01/23/2018 Priority: Not Prioritized ??? DM (diabetes mellitus) 01/23/2018 Priority: Not Prioritized Problem List as of 01/24/2018 Reviewed: 01/23/2018 1:24 PM by Kel Granger MD CAD (coronary artery disease) HTN (hypertension) DM (diabetes mellitus) Past Medical History: Diagnosis Date ??? CAD (coronary artery disease) ??? DM (diabetes mellitus) ??? HTN (hypertension) Past Surgical History: Procedure Laterality Date ??? Tonsillectomy No prescriptions prior to admission. No Known Allergies Social History Substance Use Topics ??? Smoking status: Not on file ??? Smokeless tobacco: Not on file ??? Alcohol use Not on file No family history on file. - unable to obtain to given patient is intuabted and sedated Review of Systems A comprehensive review of systems was negative except for: unable to obtain as patient is intubatedand sedated Objective: No data found. No intake or output data in the 24 hours ending 01/24/18 0638 General: The patient is intubated, sedated, and prepped on OR table. Data Review: CBC: Recent Labs Component Name 01/11/18 1548 11/09/17 1521 WBC 7.0 8.0 RBC 4.60 5.14 HGB 13.0* 14.1 HCT 38.8* 42.9 PLT 254 319 BMP: Recent Labs Component Name 01/24/18 0728 01/11/18 1548 11/09/17 1521 NA - 140 138 K - - 4.0 CL - 102 100 CO2 - 27 30 BUN - 15 18 CREATININE - 0.9 0.95 GLU 78 81 86 CALCIUM - 9.6 9.7 Phosphorus: Recent Labs Component Name 01/11/18 1548 PHOS 3.4 Coagulation: Recent Labs Component Name 01/11/18 1548 11/09/17 1521 PT 12.5 10.6 INR 0.9 1.0 Assessment: 1. Severe multivessel CAD Plan: Proceed with intraoperative AMANDO Blood pressure 172/92, pulse 82, temperature 98.4 ??F (36.9 ??C), resp. rate 16, height 6' 4 , weight 298 lb 9.6 oz, SpO2 96 %. Kavon Daley MD, MD * Fabienne Cardona MD - 01/23/2018 9:07 AM CDT CARDIOTHORACIC SURGERY HISTORY & PHYSICAL Patient Name: Yaya Vazquez : 1960 01/23/2018 10:18 AM HISTORY OF PRESENT ILLNESS (HPI): Yaya Vazquez is a 57 y.o. male with past medical history significant for DM who underwent work up for angina was found to have multivessel coronary artery disease presents this AM for CABG. Today he mentions he feels well, no interval changes since last vist. PAST MEDICAL HISTORY (PMH): Past Medical History: Diagnosis Date ??? CAD (coronary artery disease) ??? DM (diabetes mellitus) ??? HTN (hypertension) Past Surgical History: Past Surgical History: Procedure Laterality Date ??? Tonsillectomy Previous PCI/ PTCA: No Previous Cardiac Surgery: No Previous Vascular Surgery: No Previous Peripheral Stents: No No family history on file. Social History Social History ??? Marital status: Unknown Spouse name: N/A ??? Number of children: N/A ??? Years of education: N/A Social History Main Topics ??? Smoking status: Not on file ??? Smokeless tobacco: Not on file ??? Alcohol use Not on file ??? Drug use: Not on file ??? Sexual activity: Not on file Other Topics Concern ??? Not on file Social History Narrative ??? No narrative on file Current Smoker w/in 1 year: No ETOH>2 drinks/day w/in 2 weeks: No - Smokes cigars occasionally; rare alcohol; denies drug use No Known Allergies No current facility-administered medications for this encounter. No current outpatient prescriptions on file. MEDICATIONS: No current facility-administered medications for this encounter. No current outpatient prescriptions on file. REVIEW OF SYSTEMS Constitutional: Denies: fever, chills ENT/Mouth: Denies hearing loss, hearing aid, nose bleeds, tinnitus, or vertigo Cardiovascular: Denies chest pain/tightness, angina, palpitations, orthopnea, or syncope Resp: Denies wheezing, chronic cough, hemoptysis, dyspnea on exertion or dyspnea at rest GI: Denies hematemesis, constipation, diarrhea, melena, hematochezia, jaundice, fecal incontinence,reflux, or nausea/voming Ascites w/in 30 days: No : Denies dysuria, hematuria, nocturia, urinary incontinence, or impotence Musculoskeletal: Patient denies arthritis, back pain, or difficulty walking. Skin: Patient denies rashes or skin lesions/cancer Neurological: Patient denies fainting/blackout, seizures, hemiplegia, hemiparesis, impaired sensorium, or headaches. Psychiatric: Patient denies memory loss, anxiety or depression. Endocrine: Patient denies heat intolerance, cold intolerance or weight gain. Hem/Lymph: Patient denies anemia, easy bruising, previous transfusion, or history of bleeding too much after surgery or dental procedures. Vascular: Patient denies claudication, rest pain, amaurosis fugax, history of aneurysm, DVT or PE. PHYSICAL EXAM Constitutional: Appears well, no distress There were no vitals taken for this visit. Eyes: Conjunctiva and lids normal ENT/Mouth: Lips, theeth and gums normal without lesion Respiratory: Normal repiratory effort without retractions, CTAB Cardiovascular: Regular rate and rhythm without murmur Pulses (Required on Vascular and Cardiovascular Patients): Normal radial pulses bilaterally, Normaldorsalis pedis pulses bilaterally and Normal posterior tibial pulses bilaterally GI: Abdomen soft, non-distended without mass or tenderness Hem/Lymph: No cervical lymphadenopathy Musculoskeletal: 1+ edema in BL lower extremites Skin: No skin lesions Neurological: Oriented to person, place and time, No impairment in memory and No impairment in speech Psychiatric: Normal judgement/speech/memory and insight into condition and Normal mood Laboratory Review: Recent Labs Component Name 01/11/18 1548 11/09/17 1521 WBC 7.0 8.0 HGB 13.0* 14.1 HCT 38.8* 42.9 PLT 254 319 Recent Labs Component Name 01/11/18 1548 11/09/17 1521 NA 140 138 K - 4.0 CL 102 100 CO2 27 30 BUN 15 18 CREATININE 0.9 0.95 GLU 81 86 CALCIUM 9.6 9.7 MAGNESIUM 1.3* - Recent Labs Component Name 01/11/18 1548 PROT 8.2 ALB 3.8 TBILI 0.7 AST 14 ALT 13 ALKPHOS 56 Recent Labs Component Name 01/11/18 1548 11/09/17 1521 INR 0.9 1.0 PTT 28.6 - Review of Imaging Reports CXR: - The lungs are clear. There is no focal consolidation, pleural effusion, or pneumothorax. -The cardiomediastinal silhouette is normal. No acute osseous injury is identified. CT SCAN: - Mildly dilated/ectatic aortic root measuring 4.1 cm in diameter. No significant atherosclerotic calcifications at the aortic root. - Multiple right upper lobe subpleural nodules measuring up to 3 mm. If the patient is high risk, follow-up CT is optional at 12 months. If the patient is low risk, no follow-up is required. ?? Carotid duplex: - No hemodynamically significant stenosis of the carotid arteries bilaterally. - Antegrade flow in the vertebral arteries bilaterally PREOPERATIVE RISK ASSESSMENT: Functional Health Status prior to surgery: ECOG Performance Status: Grade 1 = Restricted in physically strenuous activity but ambulatory and able to carry out work of a light or sedentary nature Procedure: CAB Only Risk of Mortality: 0.44% Morbidity or Mortality: 7.612% Long Length of Stay: 2.309% Short Length of Stay: 63.066% Permanent Stroke: 0.443% Prolonged Ventilation: 4.668% DSW Infection: 0.387% Renal Failure: 1.795% Reoperation: 2.662% DIAGNOSIS: Coronary Artery disease PLAN OF CARE: Plan to proceed to the OR for CABG x 3 Ethan Hancock MD 01/23/2018 10:18 AM As above. Patient seen in preop holding. Operative plan reviewed. Consent on chart. To OR for CABG x 3. Fabienne Cardona MD 01/24/2018 7:50 AM documented in this encounter Procedure Notes * Renay Downey MD - 01/24/2018 8:07 PM CDTProcedure(s): EXTUBATION Extubation Procedure Note: Indication: Improved respiratory status as evidenced by: ?? Successful SBT for 60+ minutes ?? Pt with RSBI ~40s, SaO2 99%, most recent ABG with PaCO2 40 and PaO2 102. ?? +cuff leak Procedure: ?? Ventimask at bedside ?? Pt underwent deep and oral suctioning ?? Respiratory Care at bedside ?? Pt with HOB > 45 degrees ?? Cuff deflated ?? ETT removed and pt orally suctioned ?? Supplemental O2 placed ?? Pt with unlabored breathing and SaO2 > 95% Complications: none Dr. Cardona of Cardiac Surgery service notified. Renay Downey MD 01/24/2018 8:08 PM documented in this encounter Consult Notes * Sergey Archer RN - 01/30/2018 3:12 PM CDT Home care orders received. Spoke with patient to verify information and patient agrees to allow [facility] to follow upon discharge. Thank you for this referral. Sergey Archer, RN, MSN Hospital Pantograph Setter [facility] [phone] documented in this encounter Nursing Notes * Home William RN - 01/24/2018 3:01 PM CDT No needle seen on xray image per Dr. Pedroza, radiology attending documented in this encounter OR Notes * Operative - Fabienne Cardona MD - 01/24/2018 3:47 PM CDT DATE OF SURGERY: 01/24/2018 PREOPERATIVE DIAGNOSES: 1. Coronary artery disease with severe stenoses of the proximal LAD, proximal circumflex, proximal and distal RCA 2. Unstable angina 3. Type II diabetes POSTOPERATIVE DIAGNOSES: 1. Coronary artery disease with severe stenoses of the proximal LAD, proximal circumflex, proximal and distal RCA 2. Unstable angina 3. Type II diabetes PROCEDURE PERFORMED: 1. Coronary artery bypass grafting x 3 with MUNIZ-LAD, radial artery graft to the OM, reversed saphenous vein from aorta to PDA 2. Endoscopic harvest of the greater saphenous vein from the right leg 3. Open harvest of the radial artery from the right arm SURGEON: Fabienne Cardona MD EMBROIDERY SPECIALIST: CHERIE Johnson SECOND ASSISTANCE SPECIALIST: Caryn Willard PA-C ANESTHESIA: General. ANESTHESIOLOGIST: Kel Granger M.D. OPERATIVE FINDINGS: 1. The left internal mammary artery had adequate flow. The radial artery and saphenous vein were ofgood quality and caliber for use as bypass conduits 2. Quantitative flows at the end of the case were LAD 47 ml/min, RCA 70 ml/min, OM 41 ml/min SPECIMENS:None DRAINS: 36-Bahraini mediastinal chest tubes x2, 28-Bahraini left pleural tube. CONDITION AT CONCLUSION OF CASE: Critical. COUNTS: Sponge, and instrument counts were correct x 2 at the end of the case; the needle count wasincorrect at the end of the case. A postoperative CXR was obtained in the operating room and cleared by radiology with no needles identified. DISPOSITION: To ICU. COMPLICATIONS: None apparent. STATEMENT OF MEDICAL NECESSITY: The patient is a 57 year-old man with a history of diabetes who presented with chest pain. Cardiac cath via left radial artery demonstrated severe stenoses of the proximal LAD, circumflex, and RCA and distal RCA. The risks, benefits, and alternatives of urgent coronary artery bypass grafting were discussed with the patient and informed consent obtained. DESCRIPTION OF PROCEDURE: The patient was brought to the operating room and placed in supine position on the table. All appropriate pressure points were padded. After induction of general anesthesia and endotracheal intubation, hemodynamic monitoring lines and a AMANDO probe were placed. AMANDO showed normal EF and no significant valvular dysfunction. Preoperative antibiotics were given and the chest, abdomen, groins, legs, and right arm were prepped and draped sterilely with the right arm abducted onto an arm board. A surgical pause was performed. The greater saphenous vein was harvested from the right thigh using endoscopic technique. The right radial artery was harvested in an open fashion. Concomitantly, a median sternotomy was performed. The left internal mammary artery was harvested from the chest wall in a skeletonized fashion. The pericardium was divided and a well created. The ascending aorta was palpated. This was soft and free of plaque. Systemic heparin was given and readministered throughout the case according to ACT levels. The ascending aorta and right atrial appendage werecannulated for bypass. A coronary sinus catheter was inserted through the right atrium. The left internal mammary artery was clamped at the distal bifurcation, transected, and found to have adequate flow. Cardiopulmonary bypass was instituted and the distal coronary targets were marked. A needle was inserted into the ascending aorta for cardioplegia and venting purposes. The aorta was crossclamped during a temporary reduction in flows and cardioplegia given antegrade and retrograde. The heart arrested adequately.. Throughout the case cardioplegia was readminstered at15 minute maximal intervals via the retrograde and the vein and radial grafts after completion of their distal anastomoses. The inferior wall of the heart was exposed. The PDA was opened. Reversed saphenous vein was anastomose with a running 7-0 Prolene end-to-side. The anastomosis was tested with cardioplegia and flowed well without a leak. The lateral wall of the heart was exposed. The OM branch was opened. The radial artery was anastomosed in an end-to-side fashion with a running 7-0 Prolene. The anastomosis was tested with cardioplegia and flowed well without a leak Then the left anteriordescending artery was opened in the mid-portion. The left internal mammary artery was trimmed for length and anastomosed with a running 7-0 Prolene end to side. An aortotomy was made on the ascending aorta and augmented with a punch. The vein graft was trimmedfor length and the proximal anastomosis completed with a running 6-0 Prolene. A venotomy was made on the vein akbar, the radial artery trimmed for length and skeletonized proximally and anastomosed tothe vein akbar with a running 7-0 Prolene. A supervisor type photography was given and the aortic cross-clamp released.Temporary ventricular pacing wires were placed. The patient was weaned from cardiopulmonary withoutdifficulty. The left lung was noted to be completely deflated. Then approximately 40 minutes was spent by anesthesia to troubleshoot this problem. A mucus plug was found in the left mainstem on bronchoscopy and required multiple suction attempts to remove. During this time the venous cannula was left in place in case of need for extracorporeal oxygenation, but O2 saturations were no lower than 86% briefly during suctioning attempts and primarily in the 90s. Once the left lung was finally reinflated, we decannulated and oversewed all cannulation sites with Prolene. Systemic protamine was given. Mediastinal drains were placed. The sternum was closed with stainless steel wires. The fascia and periosteum were closed with running 0 Vicryl, the subcutaneous tissues and skin were closed in layers and sterile dressings applied. The patient was transferred to the ICU in critical condition. Fabienne Cardona MD 01/24/2018 3:50 PM * Brief Op Note - Adeola Traore APRN-STREET SUPERINTENDENT - 01/24/2018 1:35 PM CDT Brief Operative Note CORONARY ARTERY BYPASS GRAFTING X 3, RIGHT ENDOSCOPIC VEIN HARVEST, RIGHT RADIAL HARVEST Patient Name: Yaya Vazquez Date of Service: 01/24/2018 Pre-Op Diagnosis: Coronary Artery Disease, HTN Post-Op Diagnosis: Same Surgeon(s) and Role: * Fabienne Cardona MD - Primary Heel Wheeler(s): CLARIBEL Johnson, Caryn Zhao PA-C Anesthesia Type: General Complications: None Findings: Intraoperative AMANDO showed no valvular disease and a normal EF. Post operative flows: LAD 47 ml/min, RCA 70 ml/min, OM 41 ml/min. EBL: N/A, Cardiopulmonary Bypass Machine and Cell Saver Utilized Drains: Chest Tube #1 Straight 28 FR Anterior;Left Pleural (Active) Chest Tube #2 Straight 36 FR Anterior Mediastinal (Active) Chest Tube #3 Angeled 36 FR Anterior Mediastinal (Active) Specimen(s): None Adeola M. Hasser, ANP-BC, SENIOR ECOLOGIST * Brief Op Note - Kavon Daley MD - 01/24/2018 10:10 AM CDT Brief AMANDO Note Procedure: coronary artery bypass graft x 3 Patient Name: Yaya Vazquez Date of Service: 01/24/2018 Pre-Op Diagnosis: coronary artery disease hypertension Post-Op Diagnosis: coronary artery disease Attending: Rosalee Ivory MD Fellow: Kavon Daley MD Anesthesia Type: general Complications: none Findings: 1. Normal biventricular systolic function 2. LVH 3. No significant valvular heart disease (trivial MR, trivial AI) 4. Normal JING structure and velocities Kavon Daley MD, MD documented in this encounter Plan of Treatment Upcoming Encounters Date Type Department Care Team (Late st Contact Info) Description 10/20/2024 8:00 AM TRAFFIC RATE CLERK Office Visit [facility] - Family Medicine [address] [place] [id number] Kiana Cole MD [address] [place] [address] 11/28/2024 9:00 AM TRAFFIC RATE CLERK Office Visit [facility] - Neurology [address] [place] [id number] Aline Finch MD [address] [facility] [place] [address] 02/10/2025 10:00 AM CDT Office Visit [facility] - Cardiology [address] [facility] [facility] [address] [place] [address] Curly Lay MD [id number] [place] [address] Pending Results Name Type Priority Associated Diagnoses Date /Time ECHO COLOR FLOW ONLY Echocardiography Radiant Routine Encounter for transesophageal echocardiogram performed as part of open chest procedure 01/24/2018 4:49 PM CDT ECHO DOPPLER ONLY Echocardiography Radiant Routine Encounter for transesophageal echocardiogram performed as part of open chest procedure 01/24/2018 4:49 PM CDT Scheduled Orders Name Type Priority Associated Diagnoses Orde r Schedule ECHO COLOR FLOW ONLY Echocardiography Radiant Routine Encounter for transesophageal echocardiogram performed as part of open chest procedure For radiant use only for 1 Occurrences starting 01/24/2018 until 01/24/2018 ECHO DOPPLER ONLY Echocardiography Radiant Routine Encounter for transesophageal echocardiogram performed as part of open chest procedure For radiant use only for 1 Occurrences starting 01/24/2018 until 01/24/2018 Scheduled Referrals Name Type Priority Associated Diagnoses Order Schedule Ambulatory referral to Home Health Outpatient Referral Routine Status post cardiac surgery Ordered: 01/28/2018 documented as of this encounter Procedures Procedure Name Priority Date/Time Associated Diagnosis Comments CARDIAC EKG ORDER 08/01/2018 2:5 4 PM CDT CARDIAC EKG ORDER 08/01/2018 2: 53 PM CDT CARDIAC PROCEDURE ORDER 02/07/2018 9:35 AM CDT CARDIAC EKG ORDER 02/07/2018 9:3 5 AM CDT GLUCOSE - POINT OF CARE Routine 01/30/2018 5:50 PM CDT GLUCOSE - POINT OF CARE Routine 01/30/2018 11:22 AM CDT GLUCOSE - POINT OF CARE Routine 01/30/2018 6:38 AM CDT GLUCOSE - POINT OF CARE Routine 01/29/2018 8:53 PM CDT GLUCOSE - POINT OF CARE Routine 01/29/2018 4:12 PM CDT GLUCOSE - POINT OF CARE Routine 01/29/2018 11:11 AM CDT GLUCOSE - POINT OF CARE Routine 01/29/2018 6:42 AM CDT CBC W/O DIFFERENTIAL AM Draw 01/29/2018 6:20 AM CDT BASIC METABOLIC PANEL (CALCIUM TOTAL) Routine 01/29/2018 6:20 AM CDT PHOSPHORUS BLOOD Routine 01/29/2018 6:20 AM CDT MAGNESIUM BLOOD Routine 01/29/2018 6:20 AM CDT XR CHEST 1VW Routine 01/29/2018 6:04 AM CDT S/P CABG x 3 GLUCOSE - POINT OF CARE Routine 01/28/2018 9:38 PM CDT URINALYSIS NO MICROSCOPIC NO CULTURE HIMANSHU 01/28/2018 9:35 PM CDT CULTURE URINE HIMANSHU 01/28/2018 9:35 PM CDT GLUCOSE - POINT OF CARE Routine 01/28/2018 5:24 PM CDT GLUCOSE - POINT OF CARE Routine 01/28/2018 4:48 PM CDT CULTURE BLOOD STAT 01/28/2018 2:27 PM CDT CULTURE BLOOD STAT 01/28/2018 2:15 PM CDT GLUCOSE - POINT OF CARE Routine 01/28/2018 12:13 PM CDT XR CHEST 1VW STAT 01/28/2018 10:37 AM CDT Status post cardiac surgery S/P CABG x 3 CBC W/O DIFFERENTIAL AM Draw 01/28/2018 9:17 AM CDT GLUCOSE - POINT OF CARE Routine 01/28/2018 7:35 AM CDT BASIC METABOLIC PANEL (CALCIUM TOTAL) Routine 01/28/2018 6:55 AM CDT PHOSPHORUS BLOOD Routine 01/28/2018 6:55 AM CDT MAGNESIUM BLOOD Routine 01/28/2018 6:55 AM CDT GLUCOSE - POINT OF CARE Routine 01/27/2018 9:38 PM CDT GLUCOSE - POINT OF CARE Routine 01/27/2018 5:22 PM CDT GLUCOSE - POINT OF CARE Routine 01/27/2018 11:38 AM CDT GLUCOSE - POINT OF CARE Routine 01/27/2018 7:37 AM CDT CBC W/O DIFFERENTIAL STAT 01/27/2018 6:54 AM CDT BASIC METABOLIC PANEL (CALCIUM TOTAL) Routine 01/27/2018 6:54 AM CDT PHOSPHORUS BLOOD Routine 01/27/2018 6:54 AM CDT MAGNESIUM BLOOD Routine 01/27/2018 6:54 AM CDT XR CHEST 1VW STAT 01/27/2018 6:22 AM CDT Status post cardiac surgery GLUCOSE - POINT OF CARE Routine 01/26/2018 8:04 PM CDT GLUCOSE - POINT OF CARE Routine 01/26/2018 5:08 PM CDT GLUCOSE - POINT OF CARE Routine 01/26/2018 11:36 AM CDT HEPARIN PLATELET INDUCED ANTIBODY STAT 01/26/2018 9:18 AM CDT XR CHEST 1VW Routine 01/26/2018 8:33 AM CDT Status post cardiac surgery CBC W/O DIFFERENTIAL AM Draw 01/26/2018 6:52 AM CDT BASIC METABOLIC PANEL (CALCIUM TOTAL) Routine 01/26/2018 6:52 AM CDT PHOSPHORUS BLOOD Routine 01/26/2018 6:52 AM CDT MAGNESIUM BLOOD Routine 01/26/2018 6:52 AM CDT GLUCOSE - POINT OF CARE Routine 01/26/2018 6:20 AM CDT GLUCOSE - POINT OF CARE Routine 01/25/2018 9:27 PM CDT GLUCOSE - POINT OF CARE Routine 01/25/2018 6:27 PM CDT GLUCOSE - POINT OF CARE Routine 01/25/2018 5:35 PM CDT ECHO LIMITED OR FOLLOWUP Routine 01/25/2018 12:19 PM CDT GLUCOSE - POINT OF CARE Routine 01/25/2018 10:43 AM CDT CALCIUM IONIZED WHOLE BLOOD STAT 01/25/2018 9:05 AM CDT GLUCOSE - POINT OF CARE Routine 01/25/2018 8:54 AM CDT GLUCOSE - POINT OF CARE Routine 01/25/2018 7:51 AM CDT EKG 12-LEAD STAT 01/25/2018 7:35 AM CDT Coronary artery disease involving coronary bypass graft of [place] heart with unstable angina pectoris (HCC) GLUCOSE - POINT OF CARE Routine 01/25/2018 6:29 AM CDT XR CHEST 1VW PORTABLE Routine 01/25/2018 5:28 AM CDT Status post cardiac surgery GLUCOSE - POINT OF CARE Routine 01/25/2018 4:10 AM CDT GLUCOSE - POINT OF CARE Routine 01/25/2018 2:33 AM CDT GLUCOSE - POINT OF CARE Routine 01/25/2018 1:25 AM CDT GLUCOSE - POINT OF CARE Routine 01/25/2018 12:34 AM CDT PT-INR SLH STAT 01/25/2018 12:26 AM CDT SVO2 FOR RECALIBRATION STAT 8 12:26 AM CDT CALCIUM IONIZED WHOLE BLOOD Routine 01/25/2018 12:26 AM CDT CBC W/O DIFFERENTIAL Timed 01/25/2018 12:26 AM CDT BASIC METABOLIC PANEL (CALCIUM TOTAL) Routine 01/25/2018 12:26 AM CDT PHOSPHORUS BLOOD Routine 01/25/2018 12:2 6 AM CDT MAGNESIUM BLOOD Routine 01/25/2018 12:26 AM CDT BLOOD GASES ARTERIAL Routine 01/25/2018 12:26 AM CDT GLUCOSE - POINT OF CARE Routine 01/24/2018 10:08 PM CDT GLUCOSE - POINT OF CARE Routine 01/24/2018 9:21 PM CDT GLUCOSE - POINT OF CARE Routine 01/24/2018 8:01 PM CDT BLOOD GASES ARTERIAL Routine 01/24/2018 7:17 PM CDT CALCIUM IONIZED WHOLE BLOOD STAT 01/24/2018 6:36 PM CDT GLUCOSE - POINT OF CARE Routine 01/24/2018 6:20 PM CDT BLOOD GASES ARTERIAL STAT 01/24/2018 5:06 PM CDT GLUCOSE - POINT OF CARE Routine 01/24/2018 5:01 PM CDT ECHO AMANDO TRANSESOPHAGEAL Routine 01/24/2018 4:49 PM CDT CALCIUM IONIZED WHOLE BLOOD AM Draw 01/24/2018 3:59 PM CDT XR CHEST 1VW PORTABLE STAT 01/24/2018 3:51 PM CDT Status post cardiac surgery GLUCOSE - POINT OF CARE Routine 01/24/2018 3:44 PM CDT EKG 12-LEAD STAT 01/24/2018 3:42 PM CDT Status post cardiac surgery BASIC METABOLIC PANEL (CALCIUM TOTAL) STAT 01/24/2018 3:42 PM CDT PHOSPHORUS BLOOD STAT 01/24/2018 3:42 PM CDT MAGNESIUM BLOOD STAT 01/24/2018 3:42 PM CDT SVO2 FOR RECALIBRATION Routine 8 3:41 PM CDT PTT [facility] STAT 01/24/2018 3:40 PM CDT PT-INR [facility] STAT 01/24/2018 3:40 PM CDT FIBRINOGEN ACTIVITY STAT 01/24/2018 3 :40 PM CDT CBC W AUTO DIFFERENTIAL STAT 01/24/2018 3:40 PM CDT BLOOD GASES ARTERIAL STAT 01/24/2018 3:40 PM CDT OT EVAL AND TREAT Routine 01/24/2018 3:2 7 PM CDT XR CHEST 1VW Routine 01/24/2018 3:00 PM CDT Status post cardiac surgery BLOOD GASES ARTERIAL STAT 01/24/2018 2:29 PM CDT PTT SLH STAT 01/24/2018 1:45 PM CDT PT-INR [facility] STAT 01/24/2018 1:45 PM CDT BLOOD GASES ART COMPLETE [facility] OR STAT 01/24/2018 1:45 PM CDT FIBRINOGEN ACTIVITY STAT 01/24/2018 1 :45 PM CDT CBC W/O DIFFERENTIAL STAT 01/24/2018 1:45 PM CDT BLOOD GASES ART COMPLETE [facility] OR STAT 01/24/2018 12:47 PM CDT BLOOD GASES JOSEPH STAT 01/24/2018 11:50 AM CDT BLOOD GASES ARTERIAL STAT 01/24/2018 11:50 AM CDT BLOOD GASES ART COMPLETE [facility] OR STAT 01/24/2018 9:53 AM CDT BYPASS GRAFT CORONARY ARTERY (CABG) 01/24/2018 9:50 AM CDT Diagnosis unknown Case Notes BCBS I25.10, I10 Special Needs ICU Supine PAT 12/21 12:00 PREPARE RBC LEUKOREDUCED UNIT STAT 01/24/2018 7:31 AM CDT PREPARE RBC LEUKOREDUCED UNIT STAT 01/24/2018 7:31 AM CDT GLUCOSE - POINT OF CARE Routine 01/24/2018 7:28 AM CDT TYPE + SCREEN PANEL HIMANSHU 01/24/2018 7 :21 AM CDT documented in this encounter Results * CARDIAC EKG ORDER (08/01/2018 2:54 PM CDT) Narrative 08/01/2018 2:54 PM CDT Ordered by an unspecified provider. Scanned Document CARDIAC SERVICES ORD ERABLES * CARDIAC EKG ORDER (08/01/2018 2:53 PM CDT) Narrative 08/01/2018 2:53 PM CDT Ordered by an unspecified provider. Scanned Document CARDIAC SERVICES ORD ERABLES * CARDIAC EKG ORDER (02/07/2018 9:35 AM CDT) Narrative 02/07/2018 9:35 AM CDT Ordered by an unspecified provider. Scanned Document CARDIAC SERVICES ORD ERABLES * CARDIAC PROCEDURE ORDER (02/07/2018 9:35 AM CDT) Narrative 02/07/2018 9:35 AM CDT Ordered by an unspecified provider. Scanned Document CARDIAC SERVICES ORD ERABLES * (ABNORMAL) GLUCOSE - POINT OF CARE (01/30/2018 5:50 PM CDT) Glucose WB/POC 139(H) 70 - 115 mg/dL 01/30/2018 6:05 PM CDT [facility] Blood BLOOD SPECIMEN / Unknown 01/30/2018 5:50 PM CDT 01/30/2018 6:05 PM CDT [facility] - 01/30/2018 6:05 PM CDT Dry Kiln Burner: TEODORA ??RILEY Conner Blancas MD LAB - POINT OF CARE ORDERABLES Performing Organization Address [facility] Co de Phone Number [address] [phone] * (ABNORMAL) GLUCOSE - POINT OF CARE (01/30/2018 11:22 AM CDT) Glucose WB/POC 138(H) 70 - 115 mg/dL 01/30/2018 11:42 AM CDT [facility] Blood BLOOD SPECIMEN / Unknown 01/30/2018 11:22 AM CDT 01/30/2018 11:42 AM CDT [facility] - 01/30/2018 11:42 AM CDT Dry Kiln Burner: ADRIANA ??RIVKA Conner Blancas MD LAB - POINT OF CARE ORDERABLES [address] [phone] * (ABNORMAL) GLUCOSE - POINT OF CARE (01/30/2018 6:38 AM CDT) Glucose WB/POC 148(H) 70 - 115 mg/dL 01/30/2018 6:51 AM CDT [facility] Blood BLOOD SPECIMEN / Unknown 01/30/2018 6:38 AM CDT 01/30/2018 6:51 AM CDT [facility] - 01/30/2018 6:51 AM CDT Dry Kiln Burner: LEGGINS ??LENAY Conner Blancas MD LAB - POINT OF CARE ORDERABLES [address] [phone] * (ABNORMAL) GLUCOSE - POINT OF CARE (01/29/2018 8:53 PM CDT) Glucose WB/POC 194(H) 70 - 115 mg/dL 01/29/2018 9:06 PM CDT [facility] Blood BLOOD SPECIMEN / Unknown 01/29/2018 8:53 PM CDT 01/29/2018 9:06 PM CDT [facility] - 01/29/2018 9:06 PM CDT Dry Kiln Burner: LEGGINS ??LENAY Conner Blancas MD LAB - POINT OF CARE ORDERABLES [address] [phone] * (ABNORMAL) GLUCOSE - POINT OF CARE (01/29/2018 4:12 PM CDT) Glucose WB/POC 121(H) 70 - 115 mg/dL 01/29/2018 4:38 PM CDT [facility] Blood BLOOD SPECIMEN / Unknown 01/29/2018 4:12 PM CDT 01/29/2018 4:38 PM CDT [facility] - 01/29/2018 4:38 PM CDT Dry Kiln Burner: MARU ?DEON Conner Blancas MD LAB - POINT OF CARE ORDERABLES Performing Organization Address [facility]/ZIP Co de Phone Number [address] [phone] * (ABNORMAL) GLUCOSE - POINT OF CARE (01/29/2018 11:11 AM CDT) Glucose WB/POC 186(H) 70 - 115 mg/dL 01/29/2018 11:48 AM CDT [facility] Blood BLOOD SPECIMEN / Unknown 01/29/2018 11:11 AM CDT 01/29/2018 11:48 AM CDT [facility] - 01/29/2018 11:48 AM CDT Dry Kiln Burner: MARU ALMONTE Conner Blancas MD LAB - POINT OF CARE ORDERABLES Performing Organization Address [facility]/ZIP Co de Phone Number [address] [phone] * (ABNORMAL) GLUCOSE - POINT OF CARE (01/29/2018 6:42 AM CDT) Glucose WB/POC 193(H) 70 - 115 mg/dL 01/29/2018 6:55 AM CDT [facility] Blood BLOOD SPECIMEN / Unknown 01/29/2018 6:42 AM CDT 01/29/2018 6:55 AM CDT Narrative [facility] - 01/29/2018 6:55 AM CDT Dry Kiln Burner: TRAY ELMORE Conner Blancas MD LAB - POINT OF CARE ORDERABLES Performing Organization Address City/[facility]/ZIP Co de Phone Number [address] [phone] * (ABNORMAL) CBC W/O DIFFERENTIAL (01/29/2018 6:20 AM CDT) WBC 7.3 3.5 - 10.5 10? 3 /uL 01/29/2018 7:28 AM CDT [facility] Comment:Confirmed by repeat analysis. RBC 3.11(L) 4.30 - 5.70 10? 6 /uL 01/29/2018 7:28 AM [facility] Hemoglobin 8.8(L) 13.5 - 17.5 g/dL 01/29/2018 7:28 AM [facility] Hematocrit 27.7(L) 39.0 - 50.0 % 01/29/2018 7:28 AM [facility] MCV 89.1 81.0 - 97.0 fL 01/29/2018 7:28 AM [facility] MCH 28.3 28.0 - 34.0 pg 01/29/2018 7:28 AM [facility] MCHC 31.8(L) 32.0 - 36.0 g/dL 01/29/2018 7:28 AM [facility] Platelet Count 168 150 - 400 10? 3 /uL 01/29/2018 7:28 AM [facility] RDW-SD 51.6(H) 36.0 - 50.0 fL 01/29/2018 7:28 AM [facility] RDW-CV 16.1(H) 11.2 - 14.8 % 01/29/2018 7:28 AM [facility] MPV 9.2(L) 9.3 - 12.8 fL 01/29/2018 7:28 AM [facility] nRBC Absolute 0.00 0 10? 3 /uL 01/29/2018 7:28 AM [facility] nRBC Auto 0.0 0 /100 WBC 01/29/2018 7:28 AM [facility] Blood BLOOD SPECIMEN / Unknown Venipuncture / Unknown 01/29/2018 6:20 AM CDT 01/29/2018 6:42 AM CDT Rosendo Fernandez PACK PRESS OPERATOR-STREET SUPERINTENDENT LAB - HEMATO LOGY ORDERABLES [address] [phone] * (ABNORMAL) BASIC METABOLIC PANEL (CALCIUM TOTAL) (01/29/2018 6:20 AM CDT) BUN 12 7 - 26 mg/dL 01/29/2018 7:03 AM [facility] Creatinine 1.0 0.6 - 1.2 mg/dL 01/29/2018 7:03 AM [facility] Sodium 136 136 - 145 mmol/L 01/29/2018 7:03 AM [facility] Potassium 3.9 3.5 - 4.5 mmol/L 01/29/2018 7:03 AM [facility] Chloride 97(L) 98 - 107 mmol/L 01/29/2018 7:03 AM [facility] CO2 26 22 - 29 mmol/L 01/29/2018 7:03 AM [facility] Glucose 170(H) 70 - 115 mg/dL 01/29/2018 7:03 AM [facility] Calcium 9.1 8.4 - 10.2 mg/dL 01/29/2018 7:03 AM [facility] Anion Gap 17 8 - 18 01/29/2018 7:03 AM [facility] BUN/Creatinine Ratio 12 7 - 23 01/29/2018 7:03 AM [facility] Osmolality Calculated 286 270 - 300 mOsm/kg 01/29/2018 7:03 AM [facility] eGFR >60 >60 mL/min/1.7 3 m2 01/29/2018 7:03 AM [facility] Blood BLOOD SPECIMEN / Unknown Venipuncture / Unknown 01/29/2018 6:20 AM CDT 01/29/2018 6:42 AM T Mary Colindres PA-C LAB - CHEMISTRY ORDERABLES [address] [phone] * MAGNESIUM BLOOD (01/29/2018 6:20 AM CDT) Magnesium 1.8 1.6 - 2.6 mg/dL 01/29/2018 7:03 AM [facility] Blood BLOOD SPECIMEN / Unknown Venipuncture / Unknown 01/29/2018 6:20 AM CDT 01/29/2018 6:42 AM CDT Mary I Jens PA-C LAB - [place] [address], [facility] [phone] * PHOSPHORUS BLOOD (01/29/2018 6:20 AM CDT) Phosphorus 3.0 2.3 - 4.7 mg/dL 01/29/2018 7:03 AM CDT [facility] Blood BLOOD SPECIMEN / Unknown Venipuncture / Unknown 01/29/2018 6:20 AM CDT 01/29/2018 6:42 AM CDT Mary Jules Jens PA-C LAB - CHEMISTRY ORDERABLES Performing Organization Address [facility] [place] [address], [facility] [phone] * XR CHEST 1VW (01/29/2018 6:04 AM CDT) Anatomical Region Laterality Modality Chest [...] is intact. Dictated by Yeyo Birmingham MD (vice president talent management). I, Dr. SAL DOHERTY have personally reviewed and interpreted this examination/study. This report was electronically signed by SAL DOHERTY ??on 01/29/2018 1:35 PM . 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 Dictated by Yeyo Birmingham MD (vice president talent management). I, Dr. SAL DOHERTY have personally reviewed and interpreted this examination/study. This report was electronically signed by SAL DOHERTY on 01/29/2018 1:35 PM . [facility] I MAGING ORDERABLES * (ABNORMAL) GLUCOSE - POINT OF CARE (01/28/2018 9:38 PM CDT) Glucose WB/POC 155(H) 70 - 115 mg/dL 01/28/2018 9:51 PM CDT [facility] Blood BLOOD SPECIMEN / Unknown 01/28/2018 9:38 PM CDT 01/28/2018 9:51 PM CDT Narrative [facility] - 01/28/2018 9:51 PM CDT Dry Kiln Burner: LEGSAMS ??FELIPE Conner Blancas MD LAB - POINT OF CARE ORDERABLES Performing Organization Address City/State/[facility] Co de Phone Number [facility] [address] [place] [address] * CULTURE URINE (01/28/2018 9:35 PM CDT) Culture Urine No growth (<1,000 CFU/mL) VALERIA 01/30/2018 2:06 PM CDT [facility] Urine URINE SPECIMEN OBTAINED BY CLEAN CATCH PROCEDURE / Unknown Collection / Unknown 01/28/2018 9:35 PM CDT 01/28/2018 9:35 PM CDT Rosendo Fernandez APRN-STREET SUPERINTENDENT LAB - MICROB IOLOGY ORDERABLES [facility] [address] [place] [address], [facility] [phone] * URINALYSIS DIPSTICK AUTO (01/28/2018 9:35 PM CDT) Color UA Yellow Straw, Yellow, Colorless, Light Yellow 01/28/2018 9:[address] [facility] Clarity UA Clear Clear 01/28/2018 9:[address] [facility] Specific [place] UA 1.015 1.001 - 1.030 01/28/2018 9:[address] [facility] pH UA 5.0 5.0 - 8.0 01/28/2018 9:[address] [facility] Protein UA Negative <=20 mg/dL 01/28/2018 9:[address] [facility] Glucose UA Negative Negative mg/dL 01/28/2018 9:[address] [facility] Ketone UA Negative Negative mg/dL 01/28/2018 9:[address] [facility] Bilirubin UA Negative Negative mg/dL 01/28/2018 9:[address] [facility] Blood UA Negative Negative 01/28/2018 9:[address] [facility] Nitrite UA Negative Negative 01/28/2018 9:[address] [facility] Leukocyte Esterase Negative Negative 01/28/2018 9:[address] [facility] Urobilinogen UA <2.0 <2.0 mg/dL 8 9:[address] [facility] Urine URINE SPECIMEN OBTAINED BY CLEAN CATCH PROCEDURE / Unknown Collection / Unknown 01/28/2018 9:35 PM CDT 01/28/2018 9:35 PM CDT Rosendo Fernandez PACK PRESS OPERATOR-STREET SUPERINTENDENT LAB - URINAL YSIS ORDERABLES [facility] [address] [place] [address], [facility] [phone] * (ABNORMAL) GLUCOSE - POINT OF CARE (01/28/2018 5:24 PM CDT) Glucose WB/POC 124(H) 70 - 115 mg/dL 01/28/2018 5:55 PM CDT [facility] Blood BLOOD SPECIMEN / Unknown 01/28/2018 5:24 PM CDT 01/28/2018 5:55 PM CDT Narrative [facility] - 01/28/2018 5:55 PM CDT Dry Kiln Burner: JACOBS ??E'ROSALEE Conner Blancas MD LAB - POINT OF CARE ORDERABLES Performing Organization Address [facility]/[place] [address], [facility] [phone] * (ABNORMAL) GLUCOSE - POINT OF CARE (01/28/2018 4:48 PM CDT) Glucose WB/POC 140(H) 70 - 115 mg/dL 01/28/2018 5:16 PM CDT [facility] Blood BLOOD SPECIMEN / Unknown 01/28/2018 4:48 PM CDT 01/28/2018 5:16 PM CDT Narrative [facility] - 01/28/2018 5:16 PM CDT Dry Kiln Burner: MAURA ??ENRRIQUE Conner Blancas MD LAB - POINT OF CARE ORDERABLES Performing Organization Address [facility]/[place] [address], [facility] [phone] * CULTURE BLOOD (01/28/2018 2:27 PM CDT) Culture No growth day 5 VALERIA 02/02/2018 8:00 PM CDT [facility] Blood PERIPHERAL BLOOD / Unknown 01/28/2018 2:27 PM CDT 01/28/2018 3:04 PM CDT Rosendo Fernandez APRN-STREET SUPERINTENDENT LAB - MICROB IOLOGY ORDERABLES Performing Organization Address City/[facility]/ZIP Co de Phone Number [facility] [address] [place] [address], [facility] [phone] * CULTURE BLOOD (01/28/2018 2:15 PM CDT) Culture No growth day 5 VALERIA 02/02/2018 8:00 PM CDT [facility] Blood PERIPHERAL BLOOD / Unknown 01/28/2018 2:15 PM CDT 01/28/2018 3:04 PM CDT Rosendo Fernandez PACK PRESS OPERATOR-STREET SUPERINTENDENT LAB - MICROB IOLOGY ORDERABLES [facility] [address] [phone] * (ABNORMAL) GLUCOSE - POINT OF CARE (01/28/2018 12:13 PM CDT) Pathologist [facility] Glucose WB/POC 129(H) 70 - 115 mg/dL 01/28/2018 12:36 PM CDT [facility] Blood BLOOD SPECIMEN / Unknown 01/28/2018 12:13 PM CDT 01/28/2018 12:36 PM CDT Narrative [facility] - 01/28/2018 12:36 PM CDT Dry Kiln Burner: MAURA ??ENRRIQUE Conner Blancas MD LAB - POINT OF CARE ORDERABLES Performing Organization Address City/[facility]/ZIP Co de Phone Number [facility] [address] [place] [address] * XR CHEST 1VW (01/28/2018 10:37 AM CDT) Anatomical Region Laterality Modality Chest Radiographic Love ging 01/28/2018 10:4 2 AM CDT Impressions 01/29/2018 1:48 PM CDT FINDINGS/IMPRESSION: Comparison is made with a study from 01/27/2018. Median sternotomy wires and mediastinal clips are are demonstrated. An apically oriented left thoracostomy tube is unchanged. Opacities in both lung bases consistent with atelectasis/airspace disease and small layering pleural effusions are unchanged. No pneumothorax is seen. The cardiomediastinal silhouette is stable. This report was dictated by Seamus Farias M.D. (resident). IDr. Lobito M.D. have personally reviewed and interpreted this examination/study. This report was electronically signed by Lobito VAZQUEZ M.D. ??on 01/29/2018 1:48 PM . 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 Median sternotomy wires and mediastinal clips are are demonstrated. An apically oriented left thoracostomy tube is unchanged. Opacities in both lung bases consistent with atelectasis/airspacedisease and small layering pleural effusions are unchanged. No pneumothorax is seen. The cardiomediastinal silhouette is stable. This report was dictated by Seamus Farias M.D. (resident). IDr. Lobito M.D. have personally reviewed and interpretedthis examination/study. This report was electronically signed by Lobito VAZQUEZ M.D. on 01/29/2018 1:48 PM . Rosendo Fernandez PACK PRESS OPERATOR-STREET SUPERINTENDENT DIAGNOSTIC I MAGING ORDERABLES * (ABNORMAL) CBC W/O DIFFERENTIAL (01/28/2018 9:17 AM CDT) WBC 17.4(H) 3.5 - 10.5 10? 3 /uL 01/28/2018 10:03 AM [facility] Comment:All CBC parameters h ave been checked. RBC 3.05(L) 4.30 - 5.70 10? 6 /uL 01/28/2018 10:03 AM [facility] Hemoglobin 8.7(L) 13.5 - 17.5 g/dL 01/28/2018 10:03 AM [facility] Hematocrit 28.5(L) 39.0 - 50.0 % 01/28/2018 10:03 AM [facility] MCV 93.4 81.0 - 97.0 fL 01/28/2018 10:03 AM [facility] MCH 28.5 28.0 - 34.0 pg 01/28/2018 10:03 AM [facility] MCHC 30.5(L) 32.0 - 36.0 g/dL 01/28/2018 10:03 AM [facility] Platelet Count 239 150 - 400 10? 3 /uL 01/28/2018 10:03 AM [facility] RDW-SD 60.4(H) 36.0 - 50.0 fL 01/28/2018 10:03 AM [facility] RDW-CV 18.7(H) 11.2 - 14.8 % 01/28/2018 10:03 AM [facility] MPV 12.4 9.3 - 12.8 fL 01/28/2018 10:03 AM [facility] Blood BLOOD SPECIMEN / Unknown Lab Venipuncture / Unknown 01/28/2018 9:17 AM CDT 01/28/2018 9:36 AM CDT Rosendo Fernandez PACK PRESS OPERATOR-STREET SUPERINTENDENT LAB - HEMATO LOGY ORDERABLES [address] [phone] * (ABNORMAL) GLUCOSE - POINT OF CARE (01/28/2018 7:35 AM CDT) [facility] Glucose WB/POC 157(H) 70 - 115 mg/dL 01/28/2018 7:53 AM CDT [facility] Blood BLOOD SPECIMEN / Unknown 01/28/2018 7:35 AM CDT 01/28/2018 7:53 AM CDT Narrative [facility] - 01/28/2018 7:53 AM CDT Dry Kiln Burner: FRANCIS ??SAGE Conner Blancas MD LAB - POINT OF CARE ORDERABLES [address] [phone] * (ABNORMAL) BASIC METABOLIC PANEL (CALCIUM TOTAL) (01/28/2018 6:55 AM CDT) BUN 9 7 - 26 mg/dL 01/28/2018 7:50 AM [facility] Creatinine 0.9 0.6 - 1.2 mg/dL 01/28/2018 7:50 AM [facility] Sodium 136 136 - 145 mmol/L 01/28/2018 7:50 AM [facility] Potassium 3.3(L) 3.5 - 4.5 mmol/L 01/28/2018 7:50 AM [facility] Chloride 97(L) 98 - 107 mmol/L 01/28/2018 7:50 AM [facility] CO2 30(H) 22 - 29 mmol/L 01/28/2018 7:50 AM [facility] Glucose 144(H) 70 - 115 mg/dL 01/28/2018 7:50 AM [facility] Calcium 8.7 8.4 - 10.2 mg/dL 01/28/2018 7:50 AM [facility] Anion Gap 12 8 - 18 01/28/2018 7:50 AM [facility] BUN/Creatinine Ratio 10 7 - 23 01/28/2018 7:50 AM [facility] Osmolality Calculated 283 270 - 300 mOsm/kg 01/28/2018 7:50 AM [facility] eGFR >60 >60 mL/min/1.7 3 m2 01/28/2018 7:50 AM [facility] Blood BLOOD SPECIMEN / Unknown Venipuncture / Unknown 01/28/2018 6:55 AM CDT 01/28/2018 7:07 AM T Mary Colindres PA-C LAB - CHEMISTRY ORDERABLES [address] [phone] * MAGNESIUM BLOOD (01/28/2018 6:55 AM CDT) Magnesium 1.6 1.6 - 2.6 mg/dL 01/28/2018 7:50 AM [facility] Blood BLOOD SPECIMEN / Unknown Venipuncture / Unknown 01/28/2018 6:55 AM CDT 01/28/2018 7:07 AM CDT Mary Colindres PA-C LAB - CHEMISTRY ORDERABLES [address] [phone] * PHOSPHORUS BLOOD (01/28/2018 6:55 AM CDT) Phosphorus 3.6 2.3 - 4.7 mg/dL 01/28/2018 7:50 AM CDT [facility] Blood BLOOD SPECIMEN / Unknown Venipuncture / Unknown 01/28/2018 6:55 AM CDT 01/28/2018 7:07 AM CDT Mary Colindres PA-C LAB - CHEMISTRY ORDERABLES Performing Organization Address [facility]/ZIP Co de Phone Number [address] [phone] * (ABNORMAL) GLUCOSE - POINT OF CARE (01/27/2018 9:38 PM CDT) Glucose WB/POC 184(H) 70 - 115 mg/dL 01/27/2018 10:02 PM CDT [facility] Blood BLOOD SPECIMEN / Unknown 01/27/2018 9:38 PM CDT 01/27/2018 10:01 PM CDT Narrative [facility] - 01/27/2018 10:02 PM CDT Dry Kiln Burner: WALTER ??LENA Conner Blancas MD LAB - POINT OF CARE ORDERABLES Performing Organization Address [facility]/ZIP Co de Phone Number [address] [phone] * (ABNORMAL) GLUCOSE - POINT OF CARE (01/27/2018 5:22 PM CDT) Glucose WB/POC 123(H) 70 - 115 mg/dL 01/27/2018 5:38 PM CDT [facility] Blood BLOOD SPECIMEN / Unknown 01/27/2018 5:22 PM CDT 01/27/2018 5:38 PM CDT [facility] - 01/27/2018 5:38 PM CDT Dry Kiln Burner: DEREJE FITZPATRICK Conner Blancas MD LAB - POINT OF CARE ORDERABLES [address] [phone] * (ABNORMAL) GLUCOSE - POINT OF CARE (01/27/2018 11:38 AM CDT) Glucose WB/POC 146(H) 70 - 115 mg/dL 01/27/2018 12:20 PM CDT [facility] Blood BLOOD SPECIMEN / Unknown 01/27/2018 11:38 AM CDT 01/27/2018 12:20 PM CDT [facility] - 01/27/2018 12:20 PM CDT Dry Kiln Burner: DEREJE ??ROBERTO Conner Blancas MD LAB - POINT OF CARE ORDERABLES Performing Organization Address City/[facility]/[place] [address], [facility] [phone] * (ABNORMAL) GLUCOSE - POINT OF CARE (01/27/2018 7:37 AM CDT) Glucose WB/POC 212(H) 70 - 115 mg/dL 01/27/2018 8:51 AM CDT [facility] Blood BLOOD SPECIMEN / Unknown 01/27/2018 7:37 AM CDT 01/27/2018 8:51 AM CDT [facility] - 01/27/2018 8:51 AM CDT Dry Kiln Burner: DEREJE ??ROBERTO Conner Blancas MD LAB - POINT [place] [address], [facility] [phone] * (ABNORMAL) CBC W/O DIFFERENTIAL (01/27/2018 6:54 AM CDT) WBC 9.4 3.5 - 10.5 10? 3 /uL 01/27/2018 8:34 AM [facility] RBC 3.02(L) 4.30 - 5.70 10? 6 /uL 01/27/2018 8:34 AM [facility] Hemoglobin 8.5(L) 13.5 - 17.5 g/dL 01/27/2018 8:34 AM [facility] Hematocrit 27.2(L) 39.0 - 50.0 % 01/27/2018 8:34 AM [facility] MCV 90.1 81.0 - 97.0 fL 01/27/2018 8:34 AM [facility] MCH 28.1 28.0 - 34.0 pg 01/27/2018 8:34 AM [facility] MCHC 31.3(L) 32.0 - 36.0 g/dL 01/27/2018 8:34 AM [facility] Platelet Count 143(L) 150 - 400 10? 3 /uL 01/27/2018 8:34 AM [facility] RDW-SD 54.2(H) 36.0 - 50.0 fL 01/27/2018 8:34 AM [facility] RDW-CV 16.6(H) 11.2 - 14.8 % 01/27/2018 8:34 AM [facility] MPV 9.5 9.3 - 12.8 fL 01/27/2018 8:34 AM [facility] Blood BLOOD SPECIMEN / Unknown Lab Venipuncture / Unknown 01/27/2018 6:54 AM CDT 01/27/2018 8:31 AM CDT Ethan Hancock MD LAB - HEMATOLOGY ORD ERABLES [facility] [address] [phone] * (ABNORMAL) BASIC METABOLIC PANEL (CALCIUM TOTAL) (01/27/2018 6:54 AM CDT) Pathologist [facility] BUN 8 7 - 26 mg/dL 01/27/2018 8:53 AM [facility] Creatinine 0.9 0.6 - 1.2 mg/dL 01/27/2018 8:53 AM [facility] Sodium 138 136 - 145 mmol/L 01/27/2018 8:53 AM [facility] Potassium 3.4(L) 3.5 - 4.5 mmol/L 01/27/2018 8:53 AM [facility] Chloride 100 98 - 107 mmol/L 01/27/2018 8:53 AM [facility] CO2 26 22 - 29 mmol/L 01/27/2018 8:53 AM [facility] Glucose 129(H) 70 - 115 mg/dL 01/27/2018 8:53 AM [facility] Calcium 9.1 8.4 - 10.2 mg/dL 01/27/2018 8:53 AM [facility] Anion Gap 15 8 - 18 01/27/2018 8:53 AM [facility] BUN/Creatinine Ratio 9 7 - 23 01/27/2018 8:53 AM [facility] Osmolality Calculated 286 270 - 300 mOsm/kg 01/27/2018 8:53 AM [facility] eGFR >60 >60 mL/min/1.7 3 m2 01/27/2018 8:53 AM [facility] Blood BLOOD SPECIMEN / Unknown Lab Venipuncture / Unknown 01/27/2018 6:54 AM CDT 01/27/2018 8:31 AM T Mary Colindres PA-C LAB - CHEMISTRY ORDERABLES Performing Organization Address City/State/[facility] Co de Phone Number [address] [phone] * (ABNORMAL) MAGNESIUM BLOOD (01/27/2018 6:54 AM CDT) Magnesium 1.2(L) 1.6 - 2.6 mg/dL 01/27/2018 9:14 AM [facility] Blood BLOOD SPECIMEN / Unknown Lab Venipuncture / Unknown 01/27/2018 6:54 AM CDT 01/27/2018 8:31 AM CDT Mary Dhara Jens PA-C LAB - CHEMISTRY ORDERABLES [address] [phone] * PHOSPHORUS BLOOD (01/27/2018 6:54 AM CDT) Phosphorus 3.7 2.3 - 4.7 mg/dL 01/27/2018 8:53 AM CDT [facility] Blood BLOOD SPECIMEN / Unknown Lab Venipuncture / Unknown 01/27/2018 6:54 AM CDT 01/27/2018 8:31 AM CDT Mary I Jens PA-C LAB - CHEMISTRY ORDERABLES Performing Organization Address [facility] Co de Phone Number [address] [phone] * XR CHEST 1VW (01/27/2018 6:22 AM CDT) Anatomical Region Laterality Modality Chest Radiographic Love ging 01/27/2018 11:2 9 AM CDT Impressions 01/27/2018 1:32 PM CDT Findings/ Impression: Intact and well aligned median sternotomy wires and mediastinal clips are redemonstrated. A left thoracostomy tube is present. There is mild opacity in the mid to lower lungs which may represent a combination of atelectasis and/or airspace disease and small layering pleural effusions, unchanged on left and slightly increased on the right. The interstitial markings are at the upper limits of normal. There is no pneumothorax. The cardiac silhouette remains enlarged. Dictated by Oracio Martinez M.D. (Customer Pricing Manager) I, Dr. RAFY VINSON MD have personally reviewed and interpreted this examination/study. This report was electronically signed by RAFY VINSON MD ??on 01/27/2018 1:32 PM . Narrative 01/27/2018 1:32 PM CDT EXAMINATION: XR CHEST 1VW DATE: 01/27/2018 6:22 AM HISTORY: Z98.890: Status post cardiac surgery COMPARISON: Comparison is made with a study from 01/26/2018. Procedure Note Rafy Vinson MD - 01/27/2018 EXAMINATION: XR CHEST 1VW DATE: 01/27/2018 6:22 AM HISTORY: Z98.890: Status post cardiac surgery COMPARISON: Comparison is made with a study from 01/26/2018. Findings/ Impression: Intact and well aligned median sternotomy wires and mediastinal clipsare redemonstrated. A left thoracostomy tube is present. There is mild opacity in the mid to lower lungs which may represent a combination of atelectasis and/or airspace disease and small layering pleural effusions, unchanged on left and slightly increased on theright. The interstitial markings are at the upper limits of normal. There is no pneumothorax. The cardiac silhouette remains enlarged. Dictated by Oracio Martinez M.D. (Customer Pricing Manager) I, Dr. RAFY VINSON MD have personally reviewed and interpreted this examination/study. This report was electronically signed by RAFY VINSON MD on01/27/2018 1:32 PM . Ethan Hancock MD DIAGNOSTIC IMAGING O RDERABLES * (ABNORMAL) GLUCOSE - POINT OF CARE (01/26/2018 8:04 PM CDT) Glucose WB/POC 202(H) 70 - 115 mg/dL 01/26/2018 8:30 PM CDT [facility] Blood BLOOD SPECIMEN / Unknown 01/26/2018 8:04 PM CDT 01/26/2018 8:30 PM CDT Narrative [facility] - 01/26/2018 8:30 PM CDT Dry Kiln Burner: JUAN ??AMBER Conner Blancas MD LAB - POINT OF CARE ORDERABLES [address] [phone] * (ABNORMAL) GLUCOSE - POINT OF CARE (01/26/2018 5:08 PM CDT) Glucose WB/POC 150(H) 70 - 115 mg/dL 01/26/2018 5:52 PM CDT [facility] Blood BLOOD SPECIMEN / Unknown 01/26/2018 5:08 PM CDT 01/26/2018 5:52 PM CDT Narrative [facility] - 01/26/2018 5:52 PM CDT Dry Kiln Burner: JUAN ?GUY Conner Blancas MD LAB - POINT OF CARE ORDERABLES Performing Organization Address City/[facility]/ZIP Co de Phone Number [address] [phone] * (ABNORMAL) GLUCOSE - POINT OF CARE (01/26/2018 11:36 AM CDT) Glucose WB/POC 170(H) 70 - 115 mg/dL 01/26/2018 12:08 PM CDT [facility] Blood BLOOD SPECIMEN / Unknown 01/26/2018 11:36 AM CDT 01/26/2018 12:07 PM CDT Narrative [facility] - 01/26/2018 12:08 PM CDT Dry Kiln Burner: DEREJE ??ROBERTO Conner Blancas MD LAB - POINT OF CARE ORDERABLES Performing Organization Address [facility] Co de Phone Number [address] [phone] * HEPARIN PLATELET INDUCED ANTIBODY (01/26/2018 9:18 AM CDT) Interpretation Heparin Platelet Antibody Negative Negative 01/26/2018 2:49 PM CDT [facility] Comment: Heparin induced thrombocytopenia (HIT) is unlikely in the presence of a negative HIT antibody test result by CAROLE and low pretest probability for type II HIT (scoring system of [employer]). It is suggested to verify positive HIT CAROLE antibody test results by HIT Antibody Serotonin Release Assay. HIT CAROLE Patient OD 0.132 <0.400 OD 01/26/2018 2:49 PM CDT [facility] Blood BLOOD SPECIMEN / Unknown 01/26/2018 9:18 AM CDT 01/26/2018 9:47 AM CDT Ethan Hancock MD LAB - CHEMISTRY CHRISTIAN RAZO [address] [phone] * XR CHEST 1VW (01/26/2018 8:33 AM CDT) Anatomical Region Laterality Modality Chest Radiographic Love ging 01/26/2018 10:5 1 AM CDT Impressions 01/26/2018 2:13 PM CDT Findings/ Impression: Intact and well aligned median sternotomy wires and mediastinal clips are redemonstrated. A left thoracostomy tube is present. The previously seen mediastinal drains as well as the Lynnfield-Quyen catheter have been removed. Opacities in the left lower hemithorax likely representing a combination of pleural effusion, atelectasis, and/or airspace disease are unchanged. There is mild subsegmental atelectasis in the right mid and lower lung. No pneumothorax is identified. The cardiomediastinal silhouette is unchanged. Dictated by Oracio Martinez M.D. (Customer Pricing Manager) I, Dr. RAFY VINSON MD have personally reviewed and interpreted this examination/study. This report was electronically signed by RAFY VINSON MD ??on 01/26/2018 2:13 PM . Narrative 01/26/2018 2:13 PM CDT EXAMINATION: XR CHEST 1VW DATE: 01/26/2018 8:33 AM HISTORY: Z98.890: Status post cardiac surgery COMPARISON: Comparison is made with a study from 01/25/2018. Procedure Note Rafy Vinson MD - 01/26/2018 EXAMINATION: XR CHEST 1VW DATE: 01/26/2018 8:33 AM HISTORY: Z98.890: Status post cardiac surgery COMPARISON: Comparison is made with a study from 01/25/2018. Findings/ Impression: Intact and well aligned median sternotomy wires and mediastinal clipsare redemonstrated. A left thoracostomy tube is present. The previously seen mediastinal drains as well as the Lynnfield-Quyen catheter have been removed. Opacities in the left lower hemithorax likely representing a combination of pleural effusion, atelectasis, and/or airspace disease are unchanged. There is mild subsegmental atelectasis in the right mid and lower lung. No pneumothorax is identified. The cardiomediastinal silhouette is unchanged. Dictated by Oracio Martinez M.D. (Customer Pricing Manager) I, Dr. RAFY VINSON MD have personally reviewed and interpreted this examination/study. This report was electronically signed by RAFY VINSON MD on01/26/2018 2:13 PM . Ethan Hancock MD DIAGNOSTIC IMAGING O RDERABLES * (ABNORMAL) BASIC METABOLIC PANEL (CALCIUM TOTAL) (01/26/2018 6:52 AM CDT) BUN 9 7 - 26 mg/dL 01/26/2018 7:35 AM [facility] Creatinine 1.0 0.6 - 1.2 mg/dL 01/26/2018 7:35 AM [facility] Sodium 138 136 - 145 mmol/L 01/26/2018 7:35 AM [facility] Potassium 4.1 3.5 - 4.5 mmol/L 01/26/2018 7:35 AM [facility] Chloride 105 98 - 107 mmol/L 01/26/2018 7:35 AM [facility] CO2 24 22 - 29 mmol/L 01/26/2018 7:35 AM [facility] Glucose 158(H) 70 - 115 mg/dL 01/26/2018 7:35 AM [facility] Calcium 8.9 8.4 - 10.2 mg/dL 01/26/2018 7:35 AM [facility] Anion Gap 13 8 - 18 01/26/2018 7:35 AM [facility] BUN/Creatinine Ratio 9 7 - 23 01/26/2018 7:35 AM [facility] Osmolality Calculated 288 270 - 300 mOsm/kg 01/26/2018 7:35 AM [facility] eGFR >60 >60 mL/min/1.7 3 m2 01/26/2018 7:35 AM [facility] Blood BLOOD SPECIMEN / Unknown Venipuncture / Unknown 01/26/2018 6:52 AM CDT 01/26/2018 7:02 AM CDT Mary Colindres PA-C LAB - CHEMISTRY ORDERABLES Performing Organization Address [facility]/State/ZIP Co de Phone Number [address] [phone] * (ABNORMAL) MAGNESIUM BLOOD (01/26/2018 6:52 AM CDT) Magnesium 1.4(L) 1.6 - 2.6 mg/dL 01/26/2018 7:35 AM CDT [facility] Blood BLOOD SPECIMEN / Unknown Venipuncture / Unknown 01/26/2018 6:52 AM CDT 01/26/2018 7:02 AM CDT Mary Colindres PA-C LAB - CHEMISTRY ORDERABLES Performing Organization Address [facility]/ZIP Co de Phone Number [address] [phone] * PHOSPHORUS BLOOD (01/26/2018 6:52 AM CDT) Phosphorus 3.2 2.3 - 4.7 mg/dL 01/26/2018 7:35 AM CDT [facility] Blood BLOOD SPECIMEN / Unknown Venipuncture / Unknown 01/26/2018 6:52 AM CDT 01/26/2018 7:02 AM CDT Mary Colindres PA-C LAB - CHEMISTRY ORDERABLES Performing Organization Address [facility]/ZIP Co de Phone Number [address] [phone] * (ABNORMAL) CBC W/O DIFFERENTIAL (01/26/2018 6:52 AM CDT) WBC 9.2 3.5 - 10.5 10? 3 /uL 01/26/2018 7:19 AM CDT [facility] RBC 3.18(L) 4.30 - 5.70 10? 6 /uL 01/26/2018 7:19 AM CDT [facility] Hemoglobin 8.9(L) 13.5 - 17.5 g/dL 01/26/2018 7:19 AM CDT [facility] Hematocrit 28.3(L) 39.0 - 50.0 % 01/26/2018 7:19 AM [facility] MCV 89.0 81.0 - 97.0 fL 01/26/2018 7:19 AM [facility] MCH 28.0 28.0 - 34.0 pg 01/26/2018 7:19 AM [facility] MCHC 31.4(L) 32.0 - 36.0 g/dL 01/26/2018 7:19 AM [facility] Platelet Count 133(L) 150 - 400 10? 3 /uL 01/26/2018 7:19 AM [facility] RDW-SD 55.2(H) 36.0 - 50.0 fL 01/26/2018 7:19 AM [facility] RDW-CV 17.0(H) 11.2 - 14.8 % 01/26/2018 7:19 AM [facility] MPV 9.2(L) 9.3 - 12.8 fL 01/26/2018 7:19 AM [facility] Blood BLOOD SPECIMEN / Unknown Venipuncture / Unknown 01/26/2018 6:52 AM CDT 01/26/2018 7:02 AM CDT Mary Colindres PA-C LAB - HEMATOLOG Y ORDERABLES [address] [phone] * (ABNORMAL) GLUCOSE - POINT OF CARE (01/26/2018 6:20 AM CDT) Glucose WB/POC 170(H) 70 - 115 mg/dL 01/26/2018 6:35 AM CDT [facility] Blood BLOOD SPECIMEN / Unknown 01/26/2018 6:20 AM CDT 01/26/2018 6:35 AM CDT Narrative [facility] - 01/26/2018 6:35 AM CDT Dry Kiln Burner: Aracelibeck ??Ayaka Conner Blancas MD LAB - POINT OF CARE ORDERABLES [address] [phone] * (ABNORMAL) GLUCOSE - POINT OF CARE (01/25/2018 9:27 PM CDT) Glucose WB/POC 182(H) 70 - 115 mg/dL 01/25/2018 9:56 PM CDT [facility] Blood BLOOD SPECIMEN / Unknown 01/25/2018 9:27 PM CDT 01/25/2018 9:56 PM CDT [facility] - 01/25/2018 9:56 PM CDT Dry Kiln Burner: DEREJE ??CAREN Conner Blancas MD LAB - POINT OF CARE ORDERABLES [address] [phone] * (ABNORMAL) GLUCOSE - POINT OF CARE (01/25/2018 6:27 PM CDT) Glucose WB/POC 139(H) 70 - 115 mg/dL 01/25/2018 6:45 PM CDT [facility] Blood BLOOD SPECIMEN / Unknown 01/25/2018 6:27 PM CDT 01/25/2018 6:45 PM CDT [facility] - 01/25/2018 6:45 PM CDT Dry Kiln Burner: MAURA ??ENRRIQUE Conner Blancas MD LAB - POINT OF CARE ORDERABLES [address] [phone] * (ABNORMAL) GLUCOSE - POINT OF CARE (01/25/2018 5:35 PM CDT) Glucose WB/POC 137(H) 70 - 115 mg/dL 01/25/2018 5:56 PM CDT [facility] Blood BLOOD SPECIMEN / Unknown 01/25/2018 5:35 PM CDT 01/25/2018 5:56 PM CDT [facility] - 01/25/2018 5:56 PM CDT Dry Kiln Burner: CHARLES ??ADRIANA Conner Blancas MD LAB - POINT OF CARE ORDERABLES Performing Organization Address [facility]/ZIP Co de Phone Number [address] [phone] * ECHO FU OR LIMITED (01/25/2018 12:19 PM CDT) Anatomical Region Laterality Modality Color Flow Doppl er 01/25/2018 10:1 9 AM CDT Narrative Procedure Note Lulu Gerenwood MD - 01/31/2018 Ethan Hancock MD ECHOCARDIOGRAPHY RAD IANT * (ABNORMAL) GLUCOSE - POINT OF CARE (01/25/2018 10:43 AM CDT) Glucose WB/POC 116(H) 70 - 115 mg/dL 01/25/2018 11:04 AM CDT [facility] Blood BLOOD SPECIMEN / Unknown 01/25/2018 10:43 AM CDT 01/25/2018 11:04 AM CDT Narrative [facility] - 01/25/2018 11:04 AM CDT Dry Kiln Burner: CHARLES ??ADRIANA Fabienne Cardona MD LAB - POINT OF CARE ORDERABLES Performing Organization Address [facility]/State/ZIP Co de Phone Number [address] [phone] * (ABNORMAL) CALCIUM IONIZED WHOLE BLOOD (01/25/2018 9:05 AM CDT) Ionized Calcium Whole Blood 1.02 mmol/L 01/25/2018 9:09 AM CDT [facility] Adjusted Ionized Calcium 1.03(L) 1.19 - 1.34 mmol/L 01/25/2018 9:09 AM CDT [facility] pH Whole Blood 7.42 7.35 - 7.45 01/25/2018 9:09 AM CDT [facility] Blood BLOOD SPECIMEN / Unknown Venipuncture / Unknown 01/25/2018 9:05 AM CDT 01/25/2018 9:07 AM CDT Fabienne Cardona MD LAB - CHEMISTRY CHRISTIAN RAZO Performing Organization Address [facility]/ZIP Co de Phone Number [address] [phone] * (ABNORMAL) GLUCOSE - POINT OF CARE (01/25/2018 8:54 AM CDT) Glucose WB/POC 135(H) 70 - 115 mg/dL 01/25/2018 9:17 AM CDT [facility] Blood BLOOD SPECIMEN / Unknown 01/25/2018 8:54 AM CDT 01/25/2018 9:17 AM CDT Narrative [facility] - 01/25/2018 9:17 AM CDT Dry Kiln Burner: SANTANA ??ADRIANA Fabienne Cardona MD LAB - POINT OF CARE ORDERABLES Performing Organization Address [facility] Co de Phone Number [address] [phone] * (ABNORMAL) GLUCOSE - POINT OF CARE (01/25/2018 7:51 AM CDT) Glucose WB/POC 134(H) 70 - 115 mg/dL 01/25/2018 8:13 AM CDT [facility] Blood BLOOD SPECIMEN / Unknown 01/25/2018 7:51 AM CDT 01/25/2018 8:13 AM CDT Narrative [facility] - 01/25/2018 8:13 AM CDT Dry Kiln Burner: SANTANA ??ADRIANA Fabienne Cardona MD LAB - POINT OF CARE ORDERABLES Performing Organization Address [facility] Co de Phone Number [address] [phone] * EKG 12-LEAD (01/25/2018 7:35 AM CDT) Ventricular Rate [address] [facility] MUSE Atrial Rate [address] [facility] MUSE P-R Interval 136 ms [facility] MUSE QRS Duration ms 90 ms H MUSE Q-T Interval ms [address] [facility] MUSE QTC Calculation (Bezet) 419 ms [facility] MUSE Calculated P [place] 54 degrees [facility] MUSE Calculated R [place] 16 degrees [facility] MUSE Calculated T [place] -12 degrees [facility] MUSE Interpretation EKG Sinus bradycardia~ST elevation consider inferolateral injury or acute infarct~ ACUTE PA / STEMI ~Abnormal ECG~When compared with ECG of 24-JAN-2018 15:42,~St now abnormal in lateral leads~Confirmed by MAURILIO DAVIS, P ([id number]), food editor Tee Downey ([id number]) on 01/31/2018 9:26:[address] [facility] MUSE 01/25/2018 7:35 AM CDT 01/31/2018 9:26 PM CDT Conner Blancas MD ECG ORDERABLES Performing Organization Address City/[facility]/ZIP Co de Phone Number [facility] MUSE * (ABNORMAL) GLUCOSE - POINT OF CARE (01/25/2018 6:29 AM CDT) [facility] Glucose WB/POC 128(H) 70 - 115 mg/dL 01/25/2018 7:16 AM CDT [facility] Blood BLOOD SPECIMEN / Unknown 01/25/2018 6:29 AM CDT 01/25/2018 7:16 AM CDT Narrative [facility] - 01/25/2018 7:16 AM CDT Dry Kiln Burner: BLAS ??NIRU LUIS Fabienen Cardona MD LAB - POINT OF CARE ORDERABLES [facility] [address] [place] [address] * XR CHEST 1VW PORTABLE (01/25/2018 5:28 AM CDT) Anatomical Region Laterality Modality Chest Radiographic Love ging 01/25/2018 11:3 1 AM CDT Impressions 01/30/2018 12:27 PM CDT FINDINGS/IMPRESSION: Median sternotomy wires and mediastinal surgical clips are unchanged. A right internal jugular approach Lynnfield-Quyen catheter terminates near the main pulmonary artery, unchanged from prior examination. A left thoracostomy tube and mediastinal drains are unchanged in position. The bilateral interstitial and airspace opacities representing pulmonary edema and/or multifocal pneumonia have not grossly changed since the prior examination. No pleural effusion or pneumothorax is identified. The cardiomediastinal silhouette is unchanged. Dictated by Yeyo Birmingham MD (vice president talent management). This report was approved ??by Yeyo Birmingham Dr ?? on 01/25/2018 5:06 PM . I, Dr. DOLORES CARO M.D. have personally reviewed and interpreted this examination/study. This report was electronically signed by DOLORES CARO M.D. ??on 01/30/2018 12:27 PM . Narrative 01/30/2018 12:27 PM CDT EXAMINATION: XR CHEST 1VW PORTABLE HISTORY: Z98.890: Status post cardiac surgery COMPARISON: AP portable chest dated 01/24/2018 Procedure Note Dolores Caro MD - 01/30/2018 EXAMINATION: XR CHEST 1VW PORTABLE HISTORY: Z98.890: Status post cardiac surgery COMPARISON: AP portable chest dated 01/24/2018 FINDINGS/IMPRESSION: Median sternotomy wires and mediastinal surgical clips are unchanged. A right internal jugular approach Lynnfield-Quyen catheter terminates near the main pulmonary artery, unchanged from prior examination. A left thoracostomy tube and mediastinal drains are unchanged in position. The bilateral interstitial and airspace opacities representing pulmonary edema and/or multifocal pneumonia have not grossly changed since theprior examination. No pleural effusion or pneumothorax is identified. The cardiomediastinal silhouette is unchanged. Dictated by Yeyo Birmingham MD (vice president talent management). This report was approved by Yeyo Birmingham Dr on 01/25/2018 5:06 PM . I, Dr. DOLORES CARO M.D. have personally reviewed and interpreted this examination/study. This report was electronically signed by DOLORES CARO M.D. on01/30/2018 12:27 PM . Caryn Zhao PA-C DIAGNOSTIC IMAGING ORDERABLES * (ABNORMAL) GLUCOSE - POINT OF CARE (01/25/2018 4:10 AM CDT) Glucose WB/POC 126(H) 70 - 115 mg/dL 01/25/2018 4:24 AM CDT [facility] Blood BLOOD SPECIMEN / Unknown 01/25/2018 4:10 AM CDT 01/25/2018 4:24 AM CDT Narrative [facility] - 01/25/2018 4:24 AM CDT Dry Kiln Burner: BLAS LUIS Fabienne Cardona MD LAB - POINT OF CARE ORDERABLES [address] [phone] * (ABNORMAL) GLUCOSE - POINT OF CARE (01/25/2018 2:33 AM CDT) Glucose WB/POC 121(H) 70 - 115 mg/dL 01/25/2018 2:47 AM CDT [facility] Blood BLOOD SPECIMEN / Unknown 01/25/2018 2:33 AM CDT 01/25/2018 2:47 AM CDT Narrative [facility] - 01/25/2018 2:47 AM CDT Dry Kiln Burner: BLAS LUIS Fabienne Cardona MD LAB - POINT OF CARE ORDERABLES Performing Organization Address [facility]/ZIP Co de Phone Number [address] [phone] * GLUCOSE - POINT OF CARE (01/25/2018 1:25 AM CDT) Glucose WB/POC 110 70 - 115 mg/dL 01/25/2018 1:38 AM CDT [facility] Blood BLOOD SPECIMEN / Unknown 01/25/2018 1:25 AM CDT 01/25/2018 1:38 AM CDT Narrative [facility] - 01/25/2018 1:38 AM CDT Dry Kiln Burner: BLAS LUIS Fabienne Cardona MD LAB - POINT OF CARE ORDERABLES Performing Organization Address City/[facility]/ZIP Co de Phone Number [address] [place] [phone] * (ABNORMAL) GLUCOSE - POINT OF CARE (01/25/2018 12:34 AM CDT) Glucose WB/POC 126(H) 70 - 115 mg/dL 01/25/2018 12:49 AM CDT [facility] Blood BLOOD SPECIMEN / Unknown 01/25/2018 12:34 AM CDT 01/25/2018 12:49 AM CDT Narrative [facility] - 01/25/2018 12:49 AM CDT Dry Kiln Burner: BLAS ??NIRU LUIS Fabienne Cardona MD LAB - POINT OF CARE ORDERABLES Performing Organization Address City/[facility]/ZIP Co de Phone Number [address] [phone] * (ABNORMAL) CALCIUM IONIZED WHOLE BLOOD (01/25/2018 12:26 AM CDT) Pathologist [facility] Ionized Calcium Whole Blood 1.11 mmol/L 01/25/2018 1:40 AM [facility] Adjusted Ionized Calcium 1.12(L) 1.19 - 1.34 mmol/L 01/25/2018 1:40 AM [facility] pH Whole Blood 7.42 7.35 - 7.45 01/25/2018 1:40 AM T [facility] Blood BLOOD SPECIMEN / Unknown Lab Venipuncture / Unknown 01/25/2018 12:26 AM CDT 01/25/2018 1:23 AM CDT Caryn Zhao PA-C LAB - CHEMISTRY ORD ERABLES [address] [phone] * PT-INR [facility] (01/25/2018 12:26 AM CDT) PT 14.2 12.1 - 14.8 Seconds 01/25/2018 12:56 AM [facility] INR 1.1 See Comment 01/25/2018 12:56 AM T [facility] Comment: Suggested therapeutic range for low-intensity coumadin therapy for venous thromboembolism prophylaxis is an INR of 2.0-3.0. ??For high risk patients (Mitral Valve Prosthesis, Atrial Fibrillation, history of TIA/stroke), suggested prophylactic therapeutic range is an INR of 2.5-3.5. Blood BLOOD SPECIMEN / Unknown Venipuncture / Unknown 01/25/2018 12:26 AM CDT 01/25/2018 12:39 AM CDT Fabienne Cardona MD LAB - COAGULATION OR DERABLES Performing Organization Address [facility]/ZIP Co de Phone Number [address] [phone] * (ABNORMAL) SVO2 FOR RECALIBRATION (01/25/2018 12:26 AM CDT) SVO2 for Recalibration 80.6(H) 66.0 - 77.0 % 01/25/2018 12:46 AM CDT [facility] Blood BLOOD SPECIMEN / Unknown Venipuncture / Unknown 01/25/2018 12:26 AM CDT 01/25/2018 12:39 AM CDT Fabienne Cardona MD LAB - CHEMISTRY ORDE RABLES Performing Organization Address [facility] Co de Phone Number [address] [phone] * (ABNORMAL) PHOSPHORUS BLOOD (01/25/2018 12:26 AM CDT) Phosphorus 4.8(H) 2.3 - 4.7 mg/dL 01/25/2018 1:33 AM CDT [facility] Blood BLOOD SPECIMEN / Unknown Venipuncture / Unknown 01/25/2018 12:26 AM CDT 01/25/2018 12:40 AM CDT Caryn Zhao PA-C LAB - CHEMISTRY ORD ERABLES Performing Organization Address [facility] Co de Phone Number [address] [phone] * MAGNESIUM BLOOD (01/25/2018 12:26 AM CDT) Pathologist [facility] Magnesium 2.0 1.6 - 2.6 mg/dL 01/25/2018 1:33 AM [facility] Blood BLOOD SPECIMEN / Unknown Venipuncture / Unknown 01/25/2018 12:26 AM CDT 01/25/2018 12:40 AM CDT Caryn Zhao PA-C LAB - CHEMISTRY ORD ERABLES [facility] [address] [phone] * (ABNORMAL) CBC W/O DIFFERENTIAL (01/25/2018 12:26 AM CDT) WBC 8.4 3.5 - 10.5 10? 3 /uL 01/25/2018 12:48 AM [facility] RBC 3.13(L) 4.30 - 5.70 10? 6 /uL 01/25/2018 12:48 AM [facility] Hemoglobin 8.7(L) 13.5 - 17.5 g/dL 01/25/2018 12:48 AM [facility] Hematocrit 27.1(L) 39.0 - 50.0 % 01/25/2018 12:48 AM [facility] MCV 86.6 81.0 - 97.0 fL 01/25/2018 12:48 AM [facility] MCH 27.8(L) 28.0 - 34.0 pg 01/25/2018 12:48 AM [facility] MCHC 32.1 32.0 - 36.0 g/dL 01/25/2018 12:48 AM [facility] Platelet Count 155 150 - 400 10? 3 /uL 01/25/2018 12:48 AM [facility] RDW-SD 52.8(H) 36.0 - 50.0 fL 01/25/2018 12:48 AM [facility] RDW-CV 16.7(H) 11.2 - 14.8 % 01/25/2018 12:48 AM [facility] MPV 9.1(L) 9.3 - 12.8 fL 01/25/2018 12:48 AM [facility] Blood BLOOD SPECIMEN / Unknown Venipuncture / Unknown 01/25/2018 12:26 AM CDT 01/25/2018 12:39 AM CDT Caryn Zhao PA-C LAB - HEMATOLOGY OR DERABLES Performing Organization Address City/State/[facility] Co de Phone Number [facility] [address] [place] [address] * (ABNORMAL) BASIC METABOLIC PANEL (CALCIUM TOTAL) (01/25/2018 12:26 AM CDT) BUN 15 7 - 26 mg/dL 01/25/2018 1:33 AM [facility] Creatinine 0.9 0.6 - 1.2 mg/dL 01/25/2018 1:33 AM [facility] Sodium 137 136 - 145 mmol/L 01/25/2018 1:33 AM [facility] Potassium 4.6(H) 3.5 - 4.5 mmol/L 01/25/2018 1:33 AM [facility] Chloride 104 98 - 107 mmol/L 01/25/2018 1:33 AM [facility] CO2 21(L) 22 - 29 mmol/L 01/25/2018 1:33 AM [facility] Glucose 131(H) 70 - 115 mg/dL 01/25/2018 1:33 AM [facility] Calcium 9.3 8.4 - 10.2 mg/dL 01/25/2018 1:33 AM [facility] Anion Gap 17 8 - 18 01/25/2018 1:33 AM [facility] BUN/Creatinine Ratio 17 7 - 23 01/25/2018 1:33 AM [facility] Osmolality Calculated 287 270 - 300 mOsm/kg 01/25/2018 1:33 AM [facility] eGFR >60 >60 mL/min/1.7 3 m2 01/25/2018 1:33 AM [facility] Blood BLOOD SPECIMEN / Unknown Venipuncture / Unknown 01/25/2018 12:26 AM CDT 01/25/2018 12:40 AM CDT Caryn Zhao PA-C LAB - CHEMISTRY ORD ERABLES [facility] [address] [phone] * (ABNORMAL) BLOOD GASES ART (01/25/2018 12:26 AM CDT) pH Arterial 7.42 7.35 - 7.45 01/25/2018 12:44 AM [facility] pCO2 Arterial 38 35 - 45 mmHg 01/25/2018 12:44 AM [facility] pO2 Arterial 82 71 - 95 mmHg 01/25/2018 12:44 AM [facility] HCO3 Arterial 24.3 22.0 - 26.0 mmol/L 01/25/2018 12:44 AM [facility] TCO2 Arterial 25.5 25.0 - 29.0 mmol/L 01/25/2018 12:44 AM [facility] Base Excess Arterial -0.1 -2.0 - 2.0 mmol/L 01/25/2018 12:44 AM [facility] Hemoglobin Arterial 8.4(L) 13.5 - 17.5 g/dL 01/25/2018 12:44 AM [facility] Oxyhemoglobin Arterial 94.3(L) 95.0 - 100.0 % 01/25/2018 12:44 AM [facility] Carboxyhemoglobin 0.5 0.0 - 3.0 % 01/25/2018 12:44 AM [facility] Methemoglobin 0.5 0.0 - 2.0 % 01/25/2018 12:44 AM [facility] FI O2 Arterial 36.0 % 01/25/2018 12:44 AM [facility] Blood, arterial ARTERIAL BLOOD SPECIMEN / Unknown Arterial Puncture / Unknown 01/25/2018 12:26 AM CDT 01/25/2018 12:39 AM CDT Caryn Zhao PA-C LAB - BLOOD GASES O RDERABLES Performing Organization Address [facility]/ZIP Co de Phone Number [address] [phone] * (ABNORMAL) GLUCOSE - POINT OF CARE (01/24/2018 10:08 PM CDT) Glucose WB/POC 144(H) 70 - 115 mg/dL 01/24/2018 10:21 PM CDT [facility] Blood BLOOD SPECIMEN / Unknown 01/24/2018 10:08 PM CDT 01/24/2018 10:21 PM CDT Narrative [facility] - 01/24/2018 10:21 PM CDT Dry Kiln Burner: BLAS LUIS Fabienne Cardona MD LAB - POINT OF CARE ORDERABLES Performing Organization Address [facility] Co de Phone Number [address] [phone] * (ABNORMAL) GLUCOSE - POINT OF CARE (01/24/2018 9:21 PM CDT) Glucose WB/POC 144(H) 70 - 115 mg/dL 01/24/2018 10:02 PM CDT [facility] Blood BLOOD SPECIMEN / Unknown 01/24/2018 9:21 PM CDT 01/24/2018 10:02 PM CDT Narrative [facility] - 01/24/2018 10:02 PM CDT Dry Kiln Burner: BLAS LUIS Fabienne Cardona MD LAB - POINT OF CARE ORDERABLES Performing Organization Address [facility]/ZIP Co de Phone Number [address] [phone] * (ABNORMAL) GLUCOSE - POINT OF CARE (01/24/2018 8:01 PM CDT) Glucose WB/POC 156(H) 70 - 115 mg/dL 01/24/2018 8:33 PM CDT [facility] Blood BLOOD SPECIMEN / Unknown 01/24/2018 8:01 PM CDT 01/24/2018 8:33 PM CDT Narrative [facility] - 01/24/2018 8:33 PM CDT Dry Kiln Burner: BLAS ??NIRU LUIS Fabienne Cardona MD LAB - POINT OF CARE ORDERABLES Performing Organization Address [facility]/State/[facility] Co de Phone Number [facility] [address] [phone] * (ABNORMAL) BLOOD GASES ART (01/24/2018 7:17 PM CDT) pH Arterial 7.40 7.35 - 7.45 01/24/2018 7:33 PM [facility] pCO2 Arterial 40 35 - 45 mmHg 01/24/2018 7:33 PM [facility] pO2 Arterial 102(H) 71 - 95 mmHg 01/24/2018 7:33 PM [facility] HCO3 Arterial 24.6 22.0 - 26.0 mmol/L 01/24/2018 7:33 PM [facility] TCO2 Arterial 25.8 25.0 - 29.0 mmol/L 01/24/2018 7:33 PM [facility] Base Excess Arterial -0.1 -2.0 - 2.0 mmol/L 01/24/2018 7:33 PM [facility] Hemoglobin Arterial 8.8(L) 13.5 - 17.5 g/dL 01/24/2018 7:33 PM [facility] Oxyhemoglobin Arterial 95.7 95.0 - 100.0 % 01/24/2018 7:33 PM [facility] Carboxyhemoglobin 0.3 0.0 - 3.0 % 01/24/2018 7:33 PM [facility] Methemoglobin 0.3 0.0 - 2.0 % 01/24/2018 7:33 PM [facility] FI O2 Arterial 40.0 % 01/24/2018 7:33 PM [facility] Blood, arterial ARTERIAL BLOOD SPECIMEN / Unknown Arterial Puncture / Unknown 01/24/2018 7:17 PM CDT 01/24/2018 7:28 PM CDT Caryn Zhao PA-C LAB - BLOOD GASES O RDERABLES [address] [phone] * (ABNORMAL) CALCIUM IONIZED WHOLE BLOOD (01/24/2018 6:36 PM CDT) Ionized Calcium Whole Blood 1.05 mmol/L 01/24/2018 6:49 PM CDT [facility] Adjusted Ionized Calcium 1.04(L) 1.19 - 1.34 mmol/L 01/24/2018 6:49 PM CDT [facility] pH Whole Blood 7.39 7.35 - 7.45 01/24/2018 6:49 PM CDT [facility] Blood BLOOD SPECIMEN / Unknown Venipuncture / Unknown 01/24/2018 6:36 PM CDT 01/24/2018 6:45 PM CDT Fabienne Cardona MD LAB - CHEMISTRY ORDE RABLES Performing Organization Address [facility]/ZIP Co de Phone Number [address] [phone] * (ABNORMAL) GLUCOSE - POINT OF CARE (01/24/2018 6:20 PM CDT) Glucose WB/POC 139(H) 70 - 115 mg/dL 01/24/2018 6:51 PM CDT [facility] Blood BLOOD SPECIMEN / Unknown 01/24/2018 6:20 PM CDT 01/24/2018 6:51 PM CDT Narrative [facility] - 01/24/2018 6:51 PM CDT Dry Kiln Burner: BRAKE ??EDWARD Fabienne Cardona MD LAB - POINT [place] [address], [facility] [phone] * (ABNORMAL) BLOOD GASES ART (01/24/2018 5:06 PM CDT) pH Arterial 7.35 7.35 - 7.45 01/24/2018 5:58 PM CDT [facility] pCO2 Arterial 44 35 - 45 mmHg 01/24/2018 5:58 PM [facility] pO2 Arterial 91 71 - 95 mmHg 01/24/2018 5:58 PM [facility] HCO3 Arterial 23.5 22.0 - 26.0 mmol/L 01/24/2018 5:58 PM [facility] TCO2 Arterial 24.9(L) 25.0 - 29.0 mmol/L 01/24/2018 5:58 PM [facility] Base Excess Arterial -2.1(L) -2.0 - 2.0 mmol/L 01/24/2018 5:58 PM [facility] Hemoglobin Arterial 8.6(L) 13.5 - 17.5 g/dL 01/24/2018 5:58 PM [facility] Oxyhemoglobin Arterial 94.2(L) 95.0 - 100.0 % 01/24/2018 5:58 PM [facility] Carboxyhemoglobin 0.6 0.0 - 3.0 % 01/24/2018 5:58 PM [facility] Methemoglobin 0.6 0.0 - 2.0 % 01/24/2018 5:58 PM [facility] FI O2 Arterial 40.0 % 01/24/2018 5:58 PM [facility] Blood, arterial ARTERIAL BLOOD SPECIMEN / Unknown Arterial Puncture / Unknown 01/24/2018 5:06 PM CDT 01/24/2018 5:55 PM CDT Fabienne Cardona MD LAB - BLOOD GASES OR DERABLES Performing Organization Address City/State/[facility] Co de Phone Number [facility] [address] [place] [address] * (ABNORMAL) GLUCOSE - POINT OF CARE (01/24/2018 5:01 PM CDT) Glucose WB/POC 117(H) 70 - 115 mg/dL 01/24/2018 5:23 PM [facility] Blood BLOOD SPECIMEN / Unknown 01/24/2018 5:01 PM CDT 01/24/2018 5:23 PM CDT Narrative [facility] - 01/24/2018 5:23 PM CDT Dry Kiln Burner: BRAKE ??EDWARD Fabienne Cardona MD LAB - POINT OF CARE ORDERABLES Performing Organization Address [facility]/ZIP Co de Phone Number [address] [phone] * ECHO AMANDO TRANSESOPHAGEAL (01/24/2018 4:49 PM CDT) Anatomical Region Laterality Modality Color Flow Doppl er 01/24/2018 6:25 AM CDT Narrative Procedure Note Rosalee Ivory MD - 04/24/2018 Ethan Hancock MD ECHOCARDIOGRAPHY RAD IANT * (ABNORMAL) CALCIUM IONIZED WHOLE BLOOD (01/24/2018 3:59 PM CDT) Ionized Calcium Whole Blood 1.11 mmol/L 01/24/2018 4:06 PM CDT [facility] Adjusted Ionized Calcium 1.04(L) 1.19 - 1.34 mmol/L 01/24/2018 4:06 PM CDT [facility] pH Whole Blood 7.27(L) 7.35 - 7.45 01/24/2018 4:06 PM CDT [facility] Blood BLOOD SPECIMEN / Unknown Lab Venipuncture / Unknown 01/24/2018 3:59 PM CDT 01/24/2018 4:00 PM CDT Fabienne Cardona MD LAB - CHEMISTRY ORDE RABLES [address] [phone] * XR CHEST 1VW PORTABLE (01/24/2018 3:51 PM CDT) Anatomical Region Laterality Modality Chest Radiographic Love ging 01/24/2018 3:51 PM CDT Impressions 01/25/2018 5:31 PM CDT FINDINGS/IMPRESSION: The endotracheal tube terminates in the midthoracic trachea. A right internal jugular approach Lynnfield-Quyen catheter is unchanged and terminates in the main pulmonary artery. Median sternotomy wires and mediastinal surgical clips are unchanged. A left thoracostomy tube and 2 mediastinal tubes are unchanged in position. Disease bilateral interstitial opacities likely represent pulmonary edema in the acute postoperative setting. No pleural effusion or pneumothorax is identified. The cardiomediastinal silhouette is normal. The visible bony thorax is intact. Dictated by Yeyo Birmingham MD (vice president talent management). This report was approved ??by Yeyo Birmingham Dr ?? on 01/25/2018 4:48 PM . Dhara, Dr. KATERIN ALVA M.D. have personally reviewed and interpreted this examination/study. This report was electronically signed by KATERIN ALVA M.D. ??on 01/25/2018 5:31 PM . Narrative 01/25/2018 5:31 PM CDT EXAMINATION: XR CHEST 1VW PORTABLE HISTORY: Z98.890: Status post cardiac surgery COMPARISON: AP portable chest dated 01/24/2018 at 1440 Procedure Note Katerin Alva MD - 01/25/2018 EXAMINATION: XR CHEST 1VW PORTABLE HISTORY: Z98.890: Status post cardiac surgery COMPARISON: AP portable chest dated 01/24/2018 at 1440 FINDINGS/IMPRESSION: The endotracheal tube terminates in the midthoracic trachea. A right internal jugular approach Lynnfield-Quyen catheter is unchanged and terminates in the main pulmonary artery. Median sternotomy wires and mediastinal surgical clips are unchanged. A left thoracostomy tube and 2 mediastinal tubes are unchanged in position. Disease bilateral interstitial opacities likely represent pulmonaryedema in the acute postoperative setting. No pleural effusion or pneumothoraxis identified. The cardiomediastinal silhouette is normal. The visible bony thorax is intact. Dictated by Yeyo Birmingham MD (vice president talent management). This report was approved by Yeyo Birmingham Dr on 01/25/2018 4:48 PM . I, Dr. KATERIN ALVA M.D. have personally reviewed and interpreted this examination/study. This report was electronically signed by KATERIN ALVA M.D. on 01/25/2018 5:31 PM . Caryn Zhao PA-C DIAGNOSTIC IMAGING ORDERABLES * (ABNORMAL) GLUCOSE - POINT OF CARE (01/24/2018 3:44 PM CDT) [facility] Glucose WB/POC 126(H) 70 - 115 mg/dL 01/24/2018 4:04 PM CDT [facility] Blood BLOOD SPECIMEN / Unknown 01/24/2018 3:44 PM CDT 01/24/2018 4:04 PM CDT Narrative [facility] - 01/24/2018 4:04 PM CDT Dry Kiln Burner: RICHARD ??ANISA Fabienne Cardona MD LAB - POINT OF CARE ORDERABLES Performing Organization Address City/[facility]/ZIP Co de Phone Number [address] [phone] * EKG 12-LEAD (01/24/2018 3:42 PM CDT) [facility] Ventricular Rate [address] [facility] MUSE Atrial Rate [address] [facility] MUSE P-R Interval [address] [facility] MUSE QRS Duration ms [address] [facility] MUSE Q-T Interval ms [address] [facility] MUSE QTC Calculation (Bezet) [address] [facility] MUSE Calculated P [place] 7 degrees H MUSE Calculated R [place] [address] [facility] MUSE Calculated T [place] -[address] [facility] MUSE Interpretation EKG Normal sinus rhythm~ST elevation, consider early repolarization , pericarditis, or injury~T wave abnormality, consider inferior ischemia~Abnor mal ECG~When compared with ECG of 21-DEC-2017 12:33,~Lateral T wave abnormality no longer present~Confir med by Neena BRANHAM, RAYMUNDO ([id number]), food editor Tee Downey ([id number]) on 01/31/2018 8:15:[address] [facility] MUSE 01/24/2018 3:42 PM CDT 01/31/2018 8:15 PM CDT Caryn Zhao PA-C ECG ORDERABLES Performing Organization Address [facility]/ZIP Co de Phone Number [facility] MUSE * (ABNORMAL) PHOSPHORUS BLOOD (01/24/2018 3:42 PM CDT) [facility] Phosphorus 6.0(H) 2.3 - 4.7 mg/dL 01/24/2018 6:44 PM CDT [facility] Blood BLOOD SPECIMEN / Unknown Venipuncture / Unknown 01/24/2018 3:42 PM CDT 01/24/2018 6:21 PM CDT Caryn Zhao PA-C LAB - CHEMISTRY ORD ERABLES Performing Organization Address City/[facility]/ZIP Co de Phone Number [address] [phone] * MAGNESIUM BLOOD (01/24/2018 3:42 PM CDT) Magnesium 2.2 1.6 - 2.6 mg/dL 01/24/2018 6:44 PM T [facility] Blood BLOOD SPECIMEN / Unknown Venipuncture / Unknown 01/24/2018 3:42 PM CDT 01/24/2018 6:21 PM CDT Caryn Zhao PA-C LAB - CHEMISTRY ORD ERABLES Performing Organization Address City/[facility]/ZIP Co de Phone Number [address] [phone] * (ABNORMAL) BASIC METABOLIC PANEL (CALCIUM TOTAL) (01/24/2018 3:42 PM CDT) BUN 15 7 - 26 mg/dL 01/24/2018 6:44 PM T [facility] Creatinine 0.8 0.6 - 1.2 mg/dL 01/24/2018 6:44 PM T [facility] Sodium 139 136 - 145 mmol/L 01/24/2018 6:44 PM T [facility] Potassium 4.7(H) 3.5 - 4.5 mmol/L 01/24/2018 6:44 PM [facility] Chloride 104 98 - 107 mmol/L 01/24/2018 6:44 PM T [facility] CO2 23 22 - 29 mmol/L 01/24/2018 6:44 PM T [facility] Glucose 120(H) 70 - 115 mg/dL 01/24/2018 6:44 PM CDT [facility] Calcium 9.2 8.4 - 10.2 mg/dL 01/24/2018 6:44 PM [facility] Anion Gap 17 8 - 18 01/24/2018 6:44 PM T [facility] BUN/Creatinine Ratio 19 7 - 23 01/24/2018 6:44 PM T [facility] Osmolality Calculated 290 270 - 300 mOsm/kg 01/24/2018 6:44 PM T [facility] eGFR >60 >60 mL/min/1.7 3 m2 01/24/2018 6:44 PM T [facility] Blood BLOOD SPECIMEN / Unknown Venipuncture / Unknown 01/24/2018 3:42 PM CDT 01/24/2018 6:21 PM CDT Caryn Zhao PA-C LAB - CHEMISTRY ORD ERABLES Performing Organization Address [facility]/ZIP Co de Phone Number [address] [phone] * (ABNORMAL) SVO2 FOR RECALIBRATION (01/24/2018 3:41 PM CDT) SVO2 for Recalibration 78.4(H) 66.0 - 77.0 % 01/24/2018 4:13 PM CDT [facility] Blood BLOOD SPECIMEN / Unknown Venipuncture / Unknown 01/24/2018 3:41 PM CDT 01/24/2018 4:11 PM CDT Caryn Zhao PA-C LAB - CHEMISTRY ORD ERABLES [address] [phone] * PTT [facility] (01/24/2018 3:40 PM CDT) APTT 35.7 23.0 - 38.4 Seconds 01/24/2018 4:17 PM CDT [facility] Comment: Suggested therapeutic range for full dose I.V. heparin therapy for venous thromboembolism is 66.0-91.0 seconds. Blood BLOOD SPECIMEN / Unknown Venipuncture / Unknown 01/24/2018 3:40 PM CDT 01/24/2018 3:53 PM CDT Caryn Zhao PA-C LAB - [place] [address], [facility] [phone] * PT-INR [facility] (01/24/2018 3:40 PM CDT) PT 14.7 12.1 - 14.8 Seconds 01/24/2018 4:[address] [facility] INR 1.2 See Comment 01/24/2018 4:16 PM CDT [facility] Comment: Suggested therapeutic range for low-intensity coumadin therapy for venous thromboembolism prophylaxis is an INR of 2.0-3.0. ??For high risk patients (Mitral Valve Prosthesis, Atrial Fibrillation, history of TIA/stroke), suggested prophylactic therapeutic range is an INR of 2.5-3.5. Blood BLOOD SPECIMEN / Unknown Venipuncture / Unknown 01/24/2018 3:40 PM CDT 01/24/2018 3:53 PM CDT Caryn Zhao PA-C LAB - COAGULATION O GEORGESERAHATTIE Performing Organization Address [facility]/ZIP Co de Phone Number [address] [phone] * FIBRINOGEN ACTIVITY (01/24/2018 3:40 PM CDT) Fibrinogen [place]auss 302 200 - 400 mg/dL 01/24/2018 4:16 PM CDT [facility] Blood BLOOD SPECIMEN / Unknown Venipuncture / Unknown 01/24/2018 3:40 PM CDT 01/24/2018 3:53 PM CDT Caryn Zhao PA-C LAB - [place] [address], [facility] [phone] * (ABNORMAL) CBC W AUTO DIFFERENTIAL (01/24/2018 3:[address] [facility]) [facility] Signature WBC 9.5 3.5 - 10.5 10? 3 /uL 01/24/2018 4:13 PM [facility] RBC 3.19(L) 4.30 - 5.70 10? 6 /uL 01/24/2018 4:13 PM [facility] Hemoglobin 8.9(L) 13.5 - 17.5 g/dL 01/24/2018 4:13 PM [facility] Hematocrit 27.9(L) 39.0 - 50.0 % 01/24/2018 4:13 PM [facility] MCV 87.5 81.0 - 97.0 fL 01/24/2018 4:13 PM [facility] MCH 27.9(L) 28.0 - 34.0 pg 01/24/2018 4:13 PM [facility] MCHC 31.9(L) 32.0 - 36.0 g/dL 01/24/2018 4:13 PM [facility] Platelet Count 156 150 - 400 10? 3 /uL 01/24/2018 4:13 PM [facility] RDW-SD 52.7(H) 36.0 - 50.0 fL 01/24/2018 4:13 PM [facility] RDW-CV 16.4(H) 11.2 - 14.8 % 01/24/2018 4:13 PM [facility] MPV 9.1(L) 9.3 - 12.8 fL 01/24/2018 4:13 PM [facility] Neutrophils % 78.4(H) 35.0 - 70.0 % 01/24/2018 4:13 PM [facility] Lymphocytes % 13.8(L) 19.7 - 55.1 % 01/24/2018 4:13 PM [facility] Monocytes % 7.4 3.0 - 15.0 % 01/24/2018 4:13 PM [facility] Eosinophils % 0.3 0.0 - 6.0 % 01/24/2018 4:13 PM [facility] Basophil % 0.1 0.0 - 1.5 % 01/24/2018 4:13 PM CDT [facility] Neutrophils Absolute 7.4(H) 1.6 - 7.0 10? 3 /uL 01/24/2018 4:13 PM T [facility] Lymphocyte Absolute 1.3 0.8 - 2.9 10? 3 /uL 01/24/2018 4:13 PM T [facility] Monocytes Absolute 0.70(H) 0.14 - 0.66 10? 3 /uL 01/24/2018 4:13 PM T [facility] Eosinophils Absolute 0.03 0.00 - 0.22 10? 3 /uL 01/24/2018 4:13 PM T [facility] Basophils Absolute 0.01 0.00 - 0.06 10? 3 /uL 01/24/2018 4:13 PM [facility] Immature Granulocytes % 0.4 0.0 - 1.0 % 01/24/2018 4:13 PM [facility] Blood BLOOD SPECIMEN / Unknown Venipuncture / Unknown 01/24/2018 3:40 PM CDT 01/24/2018 3:53 PM CDT Caryn Zhao PA-C LAB - HEMATOLOGY OR DERABLES Performing Organization Address City/State/[facility] Co de Phone Number [address] [phone] * (ABNORMAL) BLOOD GASES ART (01/24/2018 3:40 PM CDT) pH Arterial 7.26(L) 7.35 - 7.45 01/24/2018 4:14 PM [facility] pCO2 Arterial 56(H) 35 - 45 mmHg 01/24/2018 4:14 PM [facility] pO2 Arterial 120(H) 71 - 95 mmHg 01/24/2018 4:14 PM [facility] HCO3 Arterial 24.5 22.0 - 26.0 mmol/L 01/24/2018 4:14 PM [facility] TCO2 Arterial 26.3 25.0 - 29.0 mmol/L 01/24/2018 4:14 PM CDT [facility] Base Excess Arterial -2.8(L) -2.0 - 2.0 mmol/L 01/24/2018 4:14 PM CDT [facility] Hemoglobin Arterial 9.1(L) 13.5 - 17.5 g/dL 01/24/2018 4:14 PM CDT [facility] Oxyhemoglobin Arterial 95.8 95.0 - 100.0 % 01/24/2018 4:14 PM CDT [facility] Carboxyhemoglobin 0.3 0.0 - 3.0 % 01/24/2018 4:14 PM CDT [facility] Methemoglobin 0.3 0.0 - 2.0 % 01/24/2018 4:14 PM CDT [facility] FI O2 Arterial 60.0 % 01/24/2018 4:[address] [facility] Blood, arterial ARTERIAL BLOOD SPECIMEN / Unknown Arterial Puncture / Unknown 01/24/2018 3:40 PM CDT 01/24/2018 4:12 PM CDT Caryn Zhao PA-C LAB - BLOOD GASES O RDERABLES [address] [phone] * XR CHEST 1VW (01/24/2018 3:00 PM CDT) Anatomical Region Laterality Modality Chest Radiographic Love ging 01/24/2018 2:58 PM CDT Impressions 01/25/2018 5:31 PM CDT IMPRESSION: There is no evidence of a retained curvilinear needle in the visible portions of the chest. Dictated by Yeyo Birmingham MD (vice president talent management). This report was approved ??by Yeyo Birmingham Dr ?? on 01/25/2018 4:42 PM . I, Dr. KATERIN ALVA M.D. have personally reviewed and interpreted this examination/study. This report was electronically signed by KATERIN ALVA M.D. ??on 01/25/2018 5:31 PM . Narrative 01/25/2018 5:31 PM CDT EXAMINATION: XR CHEST 1VW HISTORY: Z98.890: Status post cardiac surgery COMPARISON: AP portable chest dated 12/21/2017 FINDINGS/: Median sternotomy wires have been intervally placed. An endoscope is seen coursing expected esophageal path and terminating at the stomach. A right internal jugular approach Lynnfield-Quyen catheter terminates in the main pulmonary artery. A left thoracostomy tube and 2 mediastinal tubes have been placed. Multiple surgical clips are seen throughout the mediastinum. Procedure Note Katerin Alva MD - 01/25/2018 EXAMINATION: XR CHEST 1VW HISTORY: Z98.890: Status post cardiac surgery COMPARISON: AP portable chest dated 12/21/2017 FINDINGS/: Median sternotomy wires have been intervally placed. An endoscope isseen coursing expected esophageal path and terminating at the stomach. Aright internal jugular approach Lynnfield-Quyen catheter terminates in the main pulmonary artery. A left thoracostomy tube and 2 mediastinal tubes have been placed. Multiple surgical clips are seen throughout themediastinum. IMPRESSION: There is no evidence of a retained curvilinear needle in the visible portions of the chest. Dictated by Yeyo Birmingham MD (vice president talent management). This report was approved by Yeyo Birmingham Dr on 01/25/2018 4:42 PM . I, . KATERIN ALVA M.D. have personally reviewed and interpreted this examination/study. This report was electronically signed by KATERIN ALVA M.D. on 01/25/2018 5:31 PM . Fabienne Cardona MD DIAGNOSTIC IMAGING O RDERABLES * (ABNORMAL) BLOOD GASES ART (01/24/2018 2:29 PM CDT) pH Arterial 7.27(L) 7.35 - 7.45 01/24/2018 2:[address] [facility] pCO2 Arterial 50(H) 35 - 45 mmHg 01/24/2018 2:[address] [facility] pO2 Arterial 122(H) 71 - 95 mmHg 01/24/2018 2:[address] [facility] HCO3 Arterial 22.7 22.0 - 26.0 mmol/L 01/24/2018 2:[address] [facility] TCO2 Arterial 24.3(L) 25.0 - 29.0 mmol/L 01/24/2018 2:41 PM [facility] Base Excess Arterial -4.1(L) -2.0 - 2.0 mmol/L 01/24/2018 2:41 PM [facility] Hemoglobin Arterial 8.9(L) 13.5 - 17.5 g/dL 01/24/2018 2:41 PM [facility] Oxyhemoglobin Arterial 95.8 95.0 - 100.0 % 01/24/2018 2:41 PM [facility] Carboxyhemoglobin 0.6 0.0 - 3.0 % 01/24/2018 2:41 PM [facility] Methemoglobin 0.4 0.0 - 2.0 % 01/24/2018 2:41 PM [facility] FI O2 Arterial 60.0 % 01/24/2018 2:41 PM [facility] Blood, arterial ARTERIAL BLOOD SPECIMEN / Unknown Arterial Puncture / Unknown 01/24/2018 2:29 PM CDT 01/24/2018 2:38 PM CDT Fabienne Cardona MD LAB - BLOOD GASES OR DERABLES [address] [phone] * (ABNORMAL) BLOOD GASES ART COMPLETE [facility] OR (01/24/2018 1:45 PM CDT) pH Arterial 7.26(L) 7.35 - 7.45 01/24/2018 1:55 PM [facility] pCO2 Arterial 55(H) 35 - 45 mmHg 01/24/2018 1:55 PM [facility] pO2 Arterial 315(H) 71 - 95 mmHg 01/24/2018 1:55 PM [facility] HCO3 Arterial 24.2 22.0 - 26.0 mmol/L 01/24/2018 1:55 PM [facility] TCO2 Arterial 25.9 25.0 - 29.0 mmol/L 01/24/2018 1:55 PM [facility] Base Excess Arterial -3.1(L) -2.0 - 2.0 mmol/L 01/24/2018 1:55 PM [facility] Hemoglobin Arterial 9.5(L) 13.5 - 17.5 g/dL 01/24/2018 1:55 PM [facility] Oxyhemoglobin Arterial 98.1 95.0 - 100.0 % 01/24/2018 1:55 PM [facility] Carboxyhemoglobin 0.3 0.0 - 3.0 % 01/24/2018 1:55 PM [facility] Methemoglobin 0.2 0.0 - 2.0 % 01/24/2018 1:55 PM [facility] FI O2 Arterial 100.0 % 01/24/2018 1:55 PM [facility] Ionized Calcium Whole Blood 1.06 mmol/L 01/24/2018 1:55 PM [facility] Adjusted Ionized Calcium 0.99(L) 1.19 - 1.34 mmol/L 01/24/2018 1:55 PM [facility] Sodium Whole Blood 135 135 - 145 mmol/L 01/24/2018 1:55 PM [facility] Potassium Whole Blood 5.2 3.5 - 5.5 mmol/L 01/24/2018 1:55 PM [facility] Chloride Whole Blood 102 101 - 111 mmol/L 01/24/2018 1:55 PM [facility] Glucose Whole Blood 138(H) 70 - 110 mg/dL 01/24/2018 1:55 PM [facility] Lactic Acid Whole Blood 1.1 0.5 - 3.4 mmol/L 01/24/2018 1:55 PM [facility] Blood ARTERIAL BLOOD SPECIMEN / Unknown Venipuncture / Unknown 01/24/2018 1:45 PM CDT 01/24/2018 1:53 PM CDT Fabienne Cardona MD LAB - BLOOD GASES OR DERABLES [facility] [address] [phone] * (ABNORMAL) CBC W/O DIFFERENTIAL (01/24/2018 1:45 PM CDT) WBC 11.4(H) 3.5 - 10.5 10? 3 /uL 01/24/2018 2:00 PM [facility] RBC 3.39(L) 4.30 - 5.70 10? 6 /uL 01/24/2018 2:00 PM [facility] Hemoglobin 9.5(L) 13.5 - 17.5 g/dL 01/24/2018 2:00 PM [facility] Hematocrit 29.6(L) 39.0 - 50.0 % 01/24/2018 2:00 PM [facility] MCV 87.3 81.0 - 97.0 fL 01/24/2018 2:00 PM [facility] MCH 28.0 28.0 - 34.0 pg 01/24/2018 2:00 PM [facility] MCHC 32.1 32.0 - 36.0 g/dL 01/24/2018 2:00 PM [facility] Platelet Count 170 150 - 400 10? 3 /uL 01/24/2018 2:00 PM [facility] RDW-SD 52.7(H) 36.0 - 50.0 fL 01/24/2018 2:00 PM [facility] RDW-CV 16.5(H) 11.2 - 14.8 % 01/24/2018 2:00 PM [facility] MPV 8.8(L) 9.3 - 12.8 fL 01/24/2018 2:00 PM [facility] Blood BLOOD SPECIMEN / Unknown Venipuncture / Unknown 01/24/2018 1:45 PM CDT 01/24/2018 1:53 PM CDT Fabienne Cardona MD LAB - HEMATOLOGY ORD ERABLES [facility] [address] [place] [address] * (ABNORMAL) PTT [facility] (01/24/2018 1:45 PM CDT) APTT >212.0(H) 23.0 - 38.4 Seconds 01/24/2018 2:47 PM [facility] Comment: Results called to and read back by Shira AT 2:46 PM, 01/24/2018. . Blood BLOOD SPECIMEN / Unknown Venipuncture / Unknown 01/24/2018 1:45 PM CDT 01/24/2018 1:53 PM CDT Fabienne Cardona MD LAB - COAGULATION OR DERABLES Performing Organization Address City/[facility]/ZIP Co de Phone Number [address] [phone] * (ABNORMAL) PT-INR [facility] (01/24/2018 1:45 PM CDT) PT 17.4(H) 12.1 - 14.8 Seconds 01/24/2018 2:[address] [facility] INR 1.4 See Comment 01/24/2018 2:[address] [facility] Comment: Suggested therapeutic range for low-intensity coumadin therapy for venous thromboembolism prophylaxis is an INR of 2.0-3.0. ??For high risk patients (Mitral Valve Prosthesis, Atrial Fibrillation, history of TIA/stroke), suggested prophylactic therapeutic range is an INR of 2.5-3.5. Blood BLOOD SPECIMEN / Unknown Venipuncture / Unknown 01/24/2018 1:45 PM CDT 01/24/2018 1:53 PM CDT Fabienne Cardona MD LAB - COAGULATION OR DERABLES Performing Organization Address [facility] Co de Phone Number [address] [phone] * FIBRINOGEN ACTIVITY (01/24/2018 1:45 PM CDT) Fibrinogen Clauss 296 200 - 400 mg/dL 01/24/2018 2:09 PM CDT [facility] Blood BLOOD SPECIMEN / Unknown Venipuncture / Unknown 01/24/2018 1:45 PM CDT 01/24/2018 1:53 PM CDT Fabienne Cardona MD LAB - COAGULATION OR DERABLES [address] [address], [place] [phone] * (ABNORMAL) BLOOD GASES ART COMPLETE [facility] OR (01/24/2018 12:[address] [facility]) pH Arterial 7.40 7.35 - 7.45 01/24/2018 1:00 PM [facility] pCO2 Arterial 38 35 - 45 mmHg 01/24/2018 1:00 PM [facility] pO2 Arterial 249(H) 71 - 95 mmHg 01/24/2018 1:00 PM [facility] HCO3 Arterial 22.9 22.0 - 26.0 mmol/L 01/24/2018 1:00 PM [facility] TCO2 Arterial 24.0(L) 25.0 - 29.0 mmol/L 01/24/2018 1:00 PM [facility] Base Excess Arterial -1.7 -2.0 - 2.0 mmol/L 01/24/2018 1:00 PM [facility] Hemoglobin Arterial 8.9(L) 13.5 - 17.5 g/dL 01/24/2018 1:00 PM [facility] Oxyhemoglobin Arterial 97.8 95.0 - 100.0 % 01/24/2018 1:00 PM [facility] Carboxyhemoglobin 0.3 0.0 - 3.0 % 01/24/2018 1:00 PM [facility] Methemoglobin 0.5 0.0 - 2.0 % 01/24/2018 1:00 PM [facility] FI O2 Arterial 85.0 % 01/24/2018 1:00 PM [facility] Ionized Calcium Whole Blood 1.00 mmol/L 01/24/2018 1:00 PM [facility] Adjusted Ionized Calcium 1.00(L) 1.19 - 1.34 mmol/L 01/24/2018 1:00 PM [facility] Sodium Whole Blood 125(L) 135 - 145 mmol/L 01/24/2018 1:00 PM [facility] Potassium Whole Blood 6.1(HH) 3.5 - 5.5 mmol/L 01/24/2018 1:00 PM [facility] Comment: Results called to and read back by Shira AT 12:59 PM, 01/24/2018. . Chloride Whole Blood 101 101 - 111 mmol/L 01/24/2018 1:00 PM [facility] Glucose Whole Blood 158(H) 70 - 110 mg/dL 01/24/2018 1:00 PM [facility] Lactic Acid Whole Blood 1.3 0.5 - 3.4 mmol/L 01/24/2018 1:00 PM [facility] Blood ARTERIAL BLOOD SPECIMEN / Unknown Venipuncture / Unknown 01/24/2018 12:47 PM CDT 01/24/2018 12:51 PM CDT Fabienne Cardona MD LAB - BLOOD GASES OR DERABLES [address] [phone] * (ABNORMAL) BLOOD GASES JOSEPH (01/24/2018 11:50 AM CDT) pH Mixed Venous 7.31 7.30 - 7.40 01/24/2018 11:58 AM [facility] pCO2 Mixed Venous 50(H) 40 - 46 mmHg 01/24/2018 11:58 AM [facility] pO2 Mixed Venous 45(H) 35 - 42 mmHg 01/24/2018 11:58 AM [facility] HCO3 Mixed Venous 24.7 22.0 - 26.0 mmol/L 01/24/2018 11:58 AM [facility] TCO2 Mixed Venous 26.3 25.0 - 29.0 mmol/L 01/24/2018 11:58 AM [facility] Base Excess Venous -1.7 -2.0 - 2.0 mmol/L 01/24/2018 11:58 AM [facility] Hemoglobin Mixed Venous 9.3(L) 13.5 - 17.5 g/dL 01/24/2018 11:58 AM [facility] Oxyhemoglobin Mixed Venous 75.1 66.0 - 77.0 % 01/24/2018 11:58 AM [facility] Carboxyhemoglobin Venous 0.6 0.0 - 3.0 % 01/24/2018 11:58 AM [facility] Methemoglobin 0.5 0.0 - 2.0 % 01/24/2018 11:58 AM [facility] FI O2 Mixed Venous 75.0 % 2017 11:58 AM [facility] Blood BLOOD SPECIMEN / Unknown Venipuncture / Unknown 01/24/2018 11:50 AM CDT 01/24/2018 11:55 AM T Fabienne Cardona MD LAB - BLOOD GASES OR DERABLES [facility] [address] [place] [address] * (ABNORMAL) BLOOD GASES ART (01/24/2018 11:[address] [facility]) pH Arterial 7.35 7.35 - 7.45 01/24/2018 11:57 AM [facility] pCO2 Arterial 45 35 - 45 mmHg 01/24/2018 11:57 AM [facility] pO2 Arterial 218(H) 71 - 95 mmHg 01/24/2018 11:57 AM [facility] HCO3 Arterial 24.3 22.0 - 26.0 mmol/L 01/24/2018 11:57 AM [facility] TCO2 Arterial 25.7 25.0 - 29.0 mmol/L 01/24/2018 11:57 AM [facility] Base Excess Arterial -1.3 -2.0 - 2.0 mmol/L 01/24/2018 11:57 AM [facility] Hemoglobin Arterial 9.4(L) 13.5 - 17.5 g/dL 01/24/2018 11:57 AM [facility] Oxyhemoglobin Arterial 98.0 95.0 - 100.0 % 01/24/2018 11:57 AM [facility] Carboxyhemoglobin 0.2 0.0 - 3.0 % 01/24/2018 11:57 AM [facility] Methemoglobin 0.4 0.0 - 2.0 % 01/24/2018 11:57 AM [facility] FI O2 Arterial 75.0 % 01/24/2018 11:57 AM CDT [facility] Blood, arterial ARTERIAL BLOOD SPECIMEN / Unknown Arterial Puncture / Unknown 01/24/2018 11:50 AM CDT 01/24/2018 11:55 AM T Fabienne Cardona MD LAB - BLOOD GASES OR DERABLES [facility] [address] [phone] * (ABNORMAL) BLOOD GASES ART COMPLETE [facility] OR (01/24/2018 9:[address] [facility]) pH Arterial 7.36 7.35 - 7.45 01/24/2018 10:04 AM [facility] pCO2 Arterial 47(H) 35 - 45 mmHg 01/24/2018 10:04 AM [facility] pO2 Arterial 196(H) 71 - 95 mmHg 01/24/2018 10:04 AM [facility] HCO3 Arterial 26.1(H) 22.0 - 26.0 mmol/L 01/24/2018 10:04 AM [facility] TCO2 Arterial 27.6 25.0 - 29.0 mmol/L 01/24/2018 10:04 AM [facility] Base Excess Arterial 0.3 -2.0 - 2.0 mmol/L 01/24/2018 10:04 AM [facility] Hemoglobin Arterial 11.2(L) 13.5 - 17.5 g/dL 01/24/2018 10:04 AM [facility] Oxyhemoglobin Arterial 97.6 95.0 - 100.0 % 01/24/2018 10:04 AM [facility] Carboxyhemoglobin 0.3 0.0 - 3.0 % 01/24/2018 10:04 AM [facility] Methemoglobin 0.5 0.0 - 2.0 % 01/24/2018 10:04 AM [facility] FI O2 Arterial 85.0 % 01/24/2018 10:04 AM [facility] Ionized Calcium Whole Blood 1.01 mmol/L 01/24/2018 10:04 AM [facility] Adjusted Ionized Calcium 0.99(L) 1.19 - 1.34 mmol/L 01/24/2018 10:04 AM CDT [facility] Sodium Whole Blood 131(L) 135 - 145 mmol/L 01/24/2018 10:04 AM CDT [facility] Potassium Whole Blood 4.6 3.5 - 5.5 mmol/L 01/24/2018 10:04 AM CDT [facility] Chloride Whole Blood 102 101 - 111 mmol/L 01/24/2018 10:04 AM CDT [facility] Glucose Whole Blood 82 70 - 110 mg/dL 01/24/2018 10:04 AM CDT [facility] Lactic Acid Whole Blood 1.1 0.5 - 3.4 mmol/L 01/24/2018 10:04 AM CDT [facility] Blood ARTERIAL BLOOD SPECIMEN / Unknown Venipuncture / Unknown 01/24/2018 9:53 AM CDT 01/24/2018 9:56 AM CDT Fabienne Cardona MD LAB - BLOOD GASES OR DERABLES Performing Organization Address City/State/[facility] Co de Phone Number [address] [phone] * PREPARE (CROSSMATCH) RBC UNIT(S), 4 Units (01/24/2018 7:31 AM CDT) Unit Description LR Red Cells [facility] BLOOD BANK LAB Unit ABO O [facility] Unit Rh NEG [facility] Product Code RL1 [facility] BLO OD BANK LAB Unit Number [id number] 4 [facility] B[facility]OD [facility] LAB Unit Status Selected [facility] BLOO D BANK LAB Product Number [id number] [facility] B LOOD BANK LAB Blood Type Barcode 9500 [facility] BLO[facility] Unit Description LR Red Cells [facility] Unit ABO [facility] B[facility]OD [facility] Unit Rh NEG [facility] BLOOD [facility] LAB Product Code RL1 [facility] BLO OD BANK LAB Unit Number [id number] [facility] BLOOD [facility] LAB Unit Status Selected [facility] BLOO D BANK LAB Product Number [id number] [facility] B LOOD BANK LAB Blood Type Barcode 9500 [facility] BLOOD [facility] LAB Product Code RL1 [facility] LAB Unit Donor # [id number] [facility] BLOOD [facility] LAB Unit Status released [facility] BLOO D BANK LAB Product Code RL1 [facility] BLO OD BANK LAB Unit Donor # [id number] 5 [facility] BLOOD BANK LAB Unit Status released [facility] BLOO D BANK LAB Blood Bank BLOOD SPECIMEN / Unknown 01/24/2018 7:31 AM CDT 01/24/2018 7:31 AM CDT Fabienne Cardona MD LAB - BLOOD BANK ORD ERABLES [facility] BLOOD BANK LAB [address] * PREPARE (CROSSMATCH) RBC UNIT(S), 6 Units (01/24/2018 7:31 AM CDT) Unit Description LR Red Cells [facility] BLOOD [facility]ANK LAB Unit ABO O [facility] BLOOD [facility] LAB Unit NEG [facility] BLOOD [facility] LAB Product Code RL1 [facility] BLO OD BANK LAB Unit Number [id number] [facility] BLOOD [facility] LAB Unit Status Selected [facility] BLOO D BANK LAB Product [facility] [id number] [facility] B LOOD BANK LAB Blood Type Barcode 9500 [facility] BLOOD [facility] LAB Unit Description LR Red Cells [facility] BLOOD [facility] LAB Unit ABO O [facility] BLOOD [facility] LAB Unit Rh NEG [facility] BLOOD [facility] LAB Product Code RL1 [facility] BLO OD BANK LAB Unit Number [id number] [facility] BLOOD [facility] LAB Unit Status Selected [facility] BLOO D BANK LAB Product Number [id number] [facility] B LOOD B[facility] LAB Blood Type Barcode 9500 [facility] BLOOD [facility] LAB Unit Description LR Red Cells [facility] BLOOD [facility] LAB Unit ABO O [facility] BLOOD [facility] LAB Unit Rh NEG [facility] BLOOD [facility] LAB Product Code RL1 [facility] BLO OD BANK LAB Unit Number [id number] [facility] BLOOD [facility] LAB Unit Status Selected [facility] BLOO D B[facility] LAB Product Number [id number] [facility] B LOOD B[facility] LAB Blood Type Barcode 9500 [facility] BLOOD [facility] LAB Unit Description LR Red Cells [facility] BLOOD [facility] LAB Unit ABO O [facility] BLOOD [facility] LAB Unit Rh NEG [facility] BLOOD BANK LAB Product Code RL1 [facility] BLO OD BANK LAB Unit Number [id number] [facility] BLOOD [facility] LAB Unit Status Selected [facility] BLOO D B[facility] LAB Product Number [id number] [facility] B LOOD B[facility] LAB Blood Type Barcode 9500 [facility] BLOOD [facility] LAB Unit Description LR Red Cells [facility] BLOOD [facility]ANK LAB Unit ABO O [facility] BLOOD [facility] LAB Unit Rh NEG [facility] BLOOD [facility] LAB Product Code RL1 [facility] BLO OD BANK LAB Unit Number [id number] [facility] BLOOD [facility] LAB Unit Status Selected [facility] BLOO D BANK LAB Product Number [id number] [facility] B LOOD BANK LAB Blood Type Barcode 9500 [facility] BLOOD [facility] LAB Unit Description LR Red Cells [facility] BLOOD [facility]ANK LAB Unit ABO O [facility] BLOOD [facility]ANK LAB Unit Rh NEG [facility] BLOOD [facility] LAB Product Code RL1 [facility] BLO OD BANK LAB Unit Number [id number] [facility] BLOOD [facility]ANK LAB Unit Status Selected [facility] BLOO D BANK LAB Product Number [id number] [facility] B LOOD BANK LAB Blood Type Barcode 9500 [facility] BLOOD BANK LAB Product [facility] RL1 [facility] BLO OD BANK LAB Unit Donor # [id number] [facility] BLOOD BANK LAB Unit Status released [facility] BLOO D BANK LAB Product Code RL1 [facility] BLO OD BANK LAB Unit Donor # [id number] [facility] BLOOD BANK LAB Unit Status released [facility] BLOO D BANK LAB Product Code RL1 [facility] BLO OD BANK LAB Unit Donor # [id number] [facility] BLOOD BANK LAB Unit Status released [facility] BLOO D BANK LAB Product Code RL1 [facility] BLO OD BANK LAB Unit Donor # [id number] [facility] BLOOD BANK LAB Unit Status released [facility] BLOO D BANK LAB Product Code RL1 [facility] BLO OD BANK LAB Unit Donor # [id number] [facility] BLOOD BANK LAB Unit Status released [facility] BLOO D BANK LAB Product Code RL1 [facility] BLO OD BANK LAB Unit Donor # [id number] [facility] BLOOD BANK LAB Unit Status released [facility] BLOO D BANK LAB Blood Bank BLOOD SPECIMEN / Unknown 01/24/2018 7:31 AM CDT 01/24/2018 7:31 AM CDT Ethan Hancock MD LAB - BLOOD BANK ORD ERABLES [facility] BLOOD BANK LAB [address] * GLUCOSE - POINT OF CARE (01/24/2018 7:28 AM CDT) [facility] Signature Glucose WB/POC 78 70 - 115 mg/dL 01/24/2018 7:41 AM CDT [facility] Blood BLOOD SPECIMEN / Unknown 01/24/2018 7:28 AM CDT 01/24/2018 7:41 AM CDT Narrative [facility] - 01/24/2018 7:41 AM CDT [employer]: WILFRID ??NIRU LUIS Fabienne Cardona MD LAB - POINT OF CARE ORDERABLES Performing Organization Address City/[facility]/ZIP Co de Phone Number [facility] [address] [place] [address] * TYPE + SCREEN PANEL (01/24/2018 7:21 AM CDT) Antibody Screen NEG 8 8:[address] [facility] BLOOD BANK LAB ABO Rh O NEG 01/24/2018 8:[address] [facility] BLOOD BANK LAB Blood Bank BLOOD SPECIMEN / Unknown Venipuncture / Unknown 01/24/2018 7:21 AM CDT 01/24/2018 7:30 AM CDT Ethan Hancock MD LAB - BLOOD BANK ORD ERABLES Performing Organization Address [facility] Co de Phone Number [facility] BLOOD BANK LAB [address] [place] [address] documented in this encounter Visit Diagnoses Diagnosis S/P CABG x 3- Primary Postsurgical aortocoronary bypass status Status post cardiac surgery Encounter for transesophageal echocardiogram performed as part of open chest procedure Coronary artery disease involving coronary bypass graft of [place] heart with unstable angina pectoris (HCC) S/P CABG x 3 Postsurgical aortocoronary bypass status CAD (coronary artery disease) Coronary atherosclerosis of unspecified type of vessel, [place] or graft HTN (hypertension) Unspecified essential hypertension DM (diabetes mellitus) (HCC) Type II or unspecified type diabetes mellitus without mention of complication, not stated as uncontrolled documented in this encounter Administered Medications Inactive Administered Medications - up to 3 most recent administrations Medication Order MAR Action Action Date Dose Rate Site 0.9% NaCl infusion ADS Med 1 dose, Starting on Sun01/25/18 at 1012, Until Sun01/25/18 at 1055, Adriana Santana: cabinet override 0.9% NaCl infusion for blood at 20 mL/hr, 250 mL, ONCE PRN, 1 dose, Starting on Sun01/24/18 at 0734, Until Sun01/24/18 at 0754, Normal Saline flush bag for blood and blood product administration $ Given 01/24/2018 7:54 AM CDT 1,000 mL 20 mL/hr 0.9% NaCl injection 10 mL 10 mL, Intracatheter, EVERY 8 HOURS, 1095 doses, First dose on Sun01/24/18 at 1600, Last dose on Sun01/24/19 at 0600, FLUSH $ Given 01/30/2018 1:58 PM CDT 10 mL $ Given 01/30/2018 6:07 AM CDT 10 mL $ Given 01/29/2018 9:14 PM CDT 10 mL 0.9% NaCl injection 10 mL 10 mL, Intracatheter, PRN, Other, Starting on Sun01/24/18 at 1526, Until Sun01/30/18 at 2000, FLUSH PRN Until Discontinued $ Given 01/30/2018 1:58 PM CDT 10 mL 0.9% NaCl IV Bolus 500 mL, at 1,875 mL/hr, Administer over 16 Minutes, ONCE, 1 dose, On Sun01/25/18 at 0715 $ New Bag/Syringe 01/25/2018 10:31 AM CDT 500 mL 1875 mL/hr $ New Bag/Syringe 01/25/2018 7:44 AM CDT 500 mL 1875 m L/hr 0.9% NaCl IV Bolus 1,000 mL, at 983.61 mL/hr, Administer over 61 Minutes, ONCE, 1 dose, On Sun01/25/18 at 0815 $ New Bag/Syringe 01/25/2018 8:08 AM CDT 1,000 mL 983.61 mL/hr albuterol-ipratropium (DUO-NEB) nebulizer solution 3 mL 3 mL, Inhalation, EVERY 4 HOURS, 52 doses, First dose on Sun01/24/18 at 1600, Last dose on Sun02/02/18 at 0500 $ Given 01/30/2018 4:22 PM CDT 3 mL $ Given 01/30/2018 1:24 PM CDT 3 mL $ Given 01/30/2018 10:52 AM CDT 3 mL aspirin (ASPIRIN) chew tablet 81 mg 81 mg, Oral, DAILY, 365 doses, First dose on Sun01/25/18 at 0900, Last dose on Sun01/24/19 at 0900 $ Given 01/30/2018 8:25 AM CDT 81 mg $ Given 01/29/2018 8:30 AM CDT 81 mg $ Given 01/28/2018 8:35 AM CDT 81 mg atorvastatin (LIPITOR) tablet 20 mg 20 mg, Oral, AT BEDTIME, 365 doses, First dose on Sun01/25/18 at 2100, Last dose on Sun01/24/19 at 2100 $ Given 01/29/2018 8:33 PM CDT 20 mg $ Given 01/28/2018 9:28 PM CDT 20 mg $ Given 01/27/2018 8:01 PM CDT 20 mg bisacodyl (DULCOLAX) suppository 10 mg 10 mg, Rectal, DAILY PRN, Constipation, Starting on Sun01/25/18 at 0630, Until Sun01/30/18 at 2000 $ Given 01/28/2018 10:52 AM CDT 10 mg calcium gluconate 2 g in 0.9% NaCl 120 mL IVPB Bolus 2 g, at 120 mL/hr, Intravenous, PRN, iCa less than 1.2, Starting on Loreta 01/24/18 at 2221, Until Sun01/30/18 at 2000, As needed for iCa less than 1.2, recheck iCa in 30 minutes and repeat to maintain iCa greater than 1.2 $ New Bag/Syringe 01/25/2018 4:27 PM CDT 4 g 120 mL/hr $ New Bag/Syringe 01/24/2018 10:55 PM CDT 2 g 120 m L/hr calcium gluconate 2 g in dextrose 5 % 70 mL IVPB Bolus 2 g, at 70 mL/hr, Intravenous, PRN, iCa less than 1.2, Starting on [place] 01/24/18 at 1526, Until Sun01/24/18 at 2221, As needed for iCa less than 1.2, recheck iCa in 30 minutes and repeat to maintain iCa greater than 1.2, Post-op $ New Bag/Syringe 01/24/2018 5:21 PM CDT 2 g 70 mL/hr chlorhexidine (PERIDEX) 0.12 % oral solution 15 mL 15 mL, Swish and Spit, 2 TIMES DAILY, 730 doses, First dose on Sun01/24/18 at 0900, Last dose on Sun01/23/19 at 2100, 15 mL oral rinse. Swish for 30 seconds and spit. Do not rinse, brush, or eat immediately after use. . WASTE DISPOSAL INSTRUCTIONS: Black Bin Disposal required., Pre-op $ Given 01/24/2018 7:54 AM CDT 15 mL chlorhexidine (PERIDEX) 0.12 % oral solution 15 mL 15 mL, Swish and Spit, 2 TIMES DAILY, 730 doses, First dose on Sun01/24/18 at 2100, Last dose on Sun01/24/19 at 0900, 15 mL oral rinse. Swish for 30 seconds and spit. Do not rinse, brush, or eat immediately after use. . WASTE DISPOSAL INSTRUCTIONS: Black Bin Disposal required., Post-op $ Given 01/24/2018 10:39 PM CDT 15 mL dextrose IV 12.5-25 g 12.5-25 g (25-50 mL), Intravenous, PRN, Bedside Glucose less than 70 mg/dL -If NOT able to eat and/or NPO and with IV Access, Starting on Sun01/24/18 at 1639, Until Sun01/30/18 at 2000, If NOT able to eat and/or NPO and with IV Access: For Bedside Glucose 50-69 mg/dL give 25 mls D50W IVP STAT For Bedside glucose 50 mg/dL or LESS verify with a second Bedside Glucose (from a different site) and give 50 mls D50W IVP STAT Re-check and Re-treat blood glucose EVERY 10-25 minutes until blood glucose GREATER than or equal to 80 mg/dl. NOTIFY PROVIDER OF HYPOGLYCEMIC EVENT. fentaNYL (PF) (SUBLIMAZE) injection 50 mcg 50 mcg, Intravenous, EVERY 1 HOUR PRN, Severe Pain, Starting on Sun01/24/18 at 1644, Until Sun01/24/18 at 1943 $ Given 01/24/2018 8:15 PM CDT 50 mcg $ Given 01/24/2018 6:43 PM CDT 50 mcg $ Given 01/24/2018 5:00 PM CDT 50 mcg fentaNYL (PF) (SUBLIMAZE) injection 50 mcg 50 mcg, Intravenous, EVERY 1 HOUR PRN, breakthru, Starting on Sun01/24/18 at 1943, Until 01/28/18 at 0749 $ Given 01/27/2018 8:01 PM CDT 50 mcg $ Given 01/27/2018 3:13 PM CDT 50 mcg $ Given 01/27/2018 9:16 AM CDT 50 mcg fentaNYL (SUBLIMAZE) injection 0.05 mg/mL ADS Med 1 dose, Starting on Sun01/24/18 at 1658, Until Sun01/24/18 at 1700, Toy Dugan: cabinet override furosemide (LASIX) injection 20 mg 20 mg, Intravenous, 2 TIMES DAILY, 730 doses, First dose on Sun01/26/18 at 0900, Last dose on Sun01/25/19 at 2100 $ Given 01/27/2018 9:07 AM CDT 20 mg $ Given 01/26/2018 9:53 PM CDT 20 mg $ Given 01/26/2018 9:09 AM CDT 20 mg furosemide (LASIX) injection 40 mg 40 mg, Intravenous, 2 TIMES DAILY, 730 doses, First dose on Sun01/27/18 at 1700, Last dose on Sun01/27/19 at 0900 $ Given 01/30/2018 8:25 AM CDT 40 mg $ Given 01/29/2018 5:33 PM CDT 40 mg $ Given 01/29/2018 8:31 AM CDT 40 mg glucagon (GLUCAGEN) injection 1 mg 1 mg, Intramuscular, PRN, Bedside Glucose less than 70 mg/dL - If NOT able to eat and/or NPO and withOUT IV Access, Starting on Sun01/24/18 at 1639, Until Sun01/30/18 at 2000, If NOT able to eat and/or NPO and NO IV Access: For Bedside glucose 50-69 mg/dL Give 1 mg IM or SQ For Bedside Glucose LESS than 50 mg/dl verify with a second bedside glucose (from a different site) and Give 1 mg IM or SQ Re-check and Re-treat blood glucose EVERY 10-25 minutes until blood glucose GREATER than or equal to 80 mg/dl. NOTIFY PROVIDER OF HYPOGLYCEMIC EVENT. Reconstitute vial with 1 mL of sterile water for injection for a final concentration of 1 mg/mL; shake vial gently; use immediately and discard unused portion glucose (Diabetic Use) oral gel Oral, PRN, Other, Bedside Glucose less than 70 mg/dL -If able to eat and does not have swallowing difficulties, Starting on [place] 01/24/18 at 1639, Until 01/30/18 at 2000, If able to eat and does not have swallowing difficulties: For Bedside Glucose 50 - 69 mg/dL Give 15 grams of oral carbohydrates - 1 glucose gel (see MAR) If patient refuses glucose gel, then offer: - 4 ounces of fruit juice OR - 4 ounces non-diet soda OR - 8 ounces of fat-free milk For Bedside Glucose LESS than 50 mg/dL verify with a second Bedside Glucose (from a different site) - If pt is symptomatic, do not delay treatment If the patient is exhibiting symptoms which are not consistent with the results obtained, confirm the glucose with a STAT laboratory test. Give [...] 80 mg/dl. NOTIFY PROVIDER OF HYPOGLYCEMIC EVENT. heparin injection 5,000 Units 5,000 Units, Subcutaneous, EVERY 8 HOURS, 90 doses, First dose on Sun01/25/18 at 1300, Last dose on Sun02/24/18 at 0600 $ Given 01/26/2018 7:00 AM CDT 5,000 Units Right Arm $ Given 01/25/2018 9:45 PM CDT 5,000 Units L eft Arm $ Given 01/25/2018 12:37 PM CDT 5,000 Units Abdominal Tissue heparin injection 5,000 Units 5,000 Units, Subcutaneous, EVERY 8 HOURS, 1095 doses, First dose on Sun01/26/18 at 2200, Last dose on 01/26/19 at 1400 $ Given 01/30/2018 1:58 PM CDT 5,000 Units Abdominal Tissue $ Given 01/30/2018 6:07 AM CDT 5,000 Units R ight Arm $ Given 01/29/2018 9:13 PM CDT 5,000 Units A bdominal Tissue insulin aspart (NovoLOG) pen 0-12 Units 0-12 Units, Subcutaneous, 3 TIMES DAILY WITH MEALS, 1095 doses, First dose on Sun01/25/18 at 1200, Last dose on Sun01/25/19 at 0800, Obtain current Blood Glucose if necessary. May be given immediately before meal, during meal, or immediately after meal is eaten. Meal must be present before administration. Fingerstick glucose less than 50 or with symptomatic hypoglycemia; Repeat STAT fingerstick glucose, obtain STAT blood glucose, immediately start the hypoglycemia protocol, and notify physician. ?? Fingerstick glucose 50-79; Repeat STAT fingerstick glucose, if able to take PO then give (4 oz. of fruit juice, 4 oz. regular soda, or 8 oz. low-fat milk), and if unable to take PO then notify physician for instructions. ?? Fingerstick glucose 80-120; Do nothing. ?? Fingerstick glucose 121-150; Give 2 units subcutaneously. ?? Fingerstick glucose 151-199; Give 4 units subcutaneously. ?? Fingerstick glucose 200-250; Give 6 units subcutaneously. ?? Fingerstick glucose 251-300; Give 8 units subcutaneously. ?? Fingerstick glucose 301-350; Give 10 units subcutaneously. ?? Fingerstick glucose greater than 350; Repeat STAT fingerstick glucose, 12 units subcutaneously $ Given 01/30/2018 6:06 PM CDT 2 Units Rig ht Arm $ Given 01/30/2018 12:22 PM CDT 2 Units L eft Arm $ Given 01/30/2018 8:36 AM CDT 2 Units Le ft Arm insulin glargine (LANTUS) pen 10 Units 10 Units, Subcutaneous, DAILY, 1 dose, First dose on Sun01/26/18 at 0900, Obtain current Blood Glucose if necessary . WASTE DISPOSAL INSTRUCTIONS: Black Bin Disposal required. $ Given 01/26/2018 9:13 AM CDT 10 Units Right Arm insulin glargine (LANTUS) pen 15 Units 15 Units, Subcutaneous, DAILY, 1 dose, First dose on Sun01/25/18 at 1015, Obtain current Blood Glucose if necessary . WASTE DISPOSAL INSTRUCTIONS: Black Bin Disposal required. $ Given 01/25/2018 3:19 PM CDT 15 Units Right Arm insulin glargine (LANTUS) pen 5 Units 5 Units, Subcutaneous, DAILY, 1 dose, First dose on Sun01/27/18 at 0900, Obtain current Blood Glucose if necessary . WASTE DISPOSAL INSTRUCTIONS: Black Bin Disposal required. $ Given 01/27/2018 9:08 AM CDT 5 Units Right Arm insulin regular human (humuLIN R; novoLIN R) 100 Units in 0.9% NaCl 100 mL infusion 0.5-30 Units/hr (0.5-30 mL/hr), Intravenous, INTRA-OP CONTINUOUS, Starting on Sun01/24/18 at 0915, Until Sun01/24/18 at 1526, OR cardiac bundle . WASTE DISPOSAL INSTRUCTIONS: Black Bin Disposal required., Intra-op Current Rate 01/24/2018 4:00 PM CDT 1 Units/hr 1 mL/hr insulin regular human (humuLIN R; novoLIN R) 100 Units in 0.9% NaCl 100 mL infusion 0-26.5 Units/hr (0-26.5 mL/hr), Intravenous, CONTINUOUS, Starting on Sun01/24/18 at 1715, Until Sun01/25/18 at 1256, Titrate Insulin Infusion per protocol based on the following weight range: 125.5-135.4 kg POC Glucose (mg/dL) POC glucose = 70-89 0 units/hr POC glucose = 90-99 0.3 units/hr POC glucose = 100-119 0.8 units/hr POC glucose = 120-139 1.6 units/hr POC glucose = 140-159 2.5 units/hr POC glucose = 160-179 5.6 units/hr POC glucose = 180-199 7 units/hr POC glucose = 200-219 8.5 units/hr POC glucose = 220-239 9.9 units/hr POC glucose = 240-259 11.4 units/hr POC glucose = 260-279 12.8 units/hr POC glucose = 280-299 14.3 units/hr POC glucose = 300-319 15.7 units/hr POC glucose = 320-339 17.2 units/hr POC glucose = 340-349 18.6 units/hr POC glucose = 350-379 20 units/hr POC glucose = 380-399 21.5 units/hr POC glucose greater than 400 22.9 units/hr Titrate as follows to achieve the target goal range (See order question) Bolus from the bag as directed in the bolus order . WASTE DISPOSAL INSTRUCTIONS: Black Bin Disposal required., Target POC glucose range: 120-16 mg/dL $ New Bag/Syringe 01/25/2018 10:52 AM CDT 0.8 Units/hr 0.8 mL/hr Rate Change 01/25/2018 12:36 AM CDT 1.6 Units/hr 1.6 mL/hr Rate Change 01/24/2018 8:02 PM CDT 2.5 Units/hr 2.5 mL/hr magnesium hydroxide (MILK OF MAGNESIA) suspension 30 mL 30 mL, Oral, DAILY PRN, Constipation, Starting on Sun01/25/18 at 0630, Until Sun01/30/18 at 2000, Shake well before using. magnesium oxide (MAG-OX) tablet 800 mg 800 mg, Oral, 2 TIMES DAILY, 730 doses, First dose on Sun01/28/18 at 0945, Last dose on Sun01/27/19 at 2100 $ Given 01/30/2018 8:25 AM CDT 800 mg $ Given 01/29/2018 8:33 PM CDT 800 mg $ Given 01/29/2018 8:29 AM CDT 800 mg magnesium sulfate 2 g in 50 mL bolus 2 g, at 25 mL/hr, Administer over 120 Minutes, Intravenous, PRN, magnesium level less than 2, Starting on Sun01/24/18 at 1526, Until Sun01/28/18 at 0749, As needed for magnesium level less than 2, recheck magnesium in 30 minutes and repeat to maintain magnesium greater than 2. $ New Bag/Syringe 01/24/2018 7:36 PM CDT 2 g 25 mL/hr magnesium sulfate 2 g in 50 mL bolus 2 g, at 25 mL/hr, Administer over 120 Minutes, Intravenous, ONCE, 1 dose, On Sun01/27/18 at 1030, Infuse at 1 gm/hr $ New Bag/Syringe 01/27/2018 1:15 PM CDT 2 g 25 mL/hr magnesium sulfate 2 g in 50 mL bolus 2 g, at 25 mL/hr, Administer over 120 Minutes, Intravenous, ONCE, 1 dose, On Sun01/27/18 at 1230, Infuse at 1 gm/hr $ New Bag/Syringe 01/27/2018 3:01 PM CDT 2 g 25 mL/hr magnesium sulfate 2 g in 50 mL bolus 2 g, at 25 mL/hr, Administer over 120 Minutes, Intravenous, ONCE, 1 dose, On Sun01/28/18 at 0930, Infuse at 1 gm/hr $ New Bag/Syringe 01/28/2018 10:42 AM CDT 2 g 25 mL/hr metoprolol tartrate (LOPRESSOR) tablet 25 mg 25 mg, Oral, 2 TIMES DAILY, 727 doses, First dose (after last modification) on Sun01/27/18 at 2100, Last dose on Sun01/25/19 at 2100 $ Given 01/30/2018 8:25 AM CDT 25 mg $ Given 01/29/2018 8:33 PM CDT 25 mg $ Given 01/29/2018 8:30 AM CDT 25 mg metoprolol tartrate IR (LOPRESSOR) tablet 12.5 mg 12.5 mg, Oral, 2 TIMES DAILY, 730 doses, First dose on Sun01/26/18 at 0900, Last dose on Sun01/25/19 at 2100 $ Given 01/27/2018 9:06 AM CDT 12.5 mg $ Given 01/26/2018 9:52 PM CDT 12.5 mg $ Given 01/26/2018 9:09 AM CDT 12.5 mg mupirocin (BACTROBAN) 2 % ointment Each Nostril, 2 TIMES DAILY, 12 doses, First dose on Sun01/24/18 at 0900, Last dose on Sun01/29/18 at 2100, Apply to both nares. Once pre-op if indicated, Pre-op $ Given 01/24/2018 7:54 AM CDT mupirocin calcium (BACTROBAN) 2 % cream Topical, 2 TIMES DAILY, 730 doses, First dose on Sun01/24/18 at 2100, Last dose on Sun01/24/19 at 0900, Apply to both nares $ Given 01/30/2018 8:36 AM CDT $ Given 01/29/2018 9:14 PM CDT $ Given 01/29/2018 8:31 AM CDT Na res-Bilateral norepinephrine (LEVOPHED) 8 mg/250 ml infusion premix ADS Med 1 dose, Starting on Sun01/25/18 at 0640, Until Sun01/25/18 at 0645, Niru Vásquez: abel override norepinephrine (LEVOPHED) 8 mg/250 ml infusion premix 0-0.4 mcg/kg/min ? 135.4 kg (0-101.55 mL/hr), Intravenous, CONTINUOUS, Starting on [place] 01/24/18 at 1600, Until Sun01/25/18 at 1537, Titration Parameters: Custom Parameters, Indication: Hypotension, Initiate infusion at: Custom rate in mcg/kg/min - see comments, Titrate infusion by: If current rate 0.01 to 0.1 mcg/kg/min, titrate by 0.01 mcg/kg/min. If current rate 0.11 to 0.3 mcg/kg/min, titrate by 0.02 mcg/kg/min. If current rate 0.31 mcg/kg/min to the max ordered dose, titrate by 0.05 mcg/kg/min., Titrate every: 1 minute, To maintain a: SBP greater than 90 mmHg, MAP greater than or equal to 65 mmHg, Notify physician if: SBP less than 90 mmHg despite max dose, MAP less than 65 mmHg despite max dose, Post-op Titration/Asses sment 01/25/2018 7:54 AM CDT 0.015 mcg/kg/min 3.81 mL/hr $ New Bag/Syringe 01/25/2018 6:45 AM CDT 0.1 mcg/kg/min 25 .39 mL/hr oxyCODONE-acetaminophen (PERCOCET) 5-325 MG tablet 1 tablet 1 tablet, Oral, EVERY 4 HOURS PRN, Moderate Pain, Starting on [place] 01/24/18 at 1813, Until Sun01/30/18 at 2000 oxyCODONE-acetaminophen (PERCOCET) 5-325 MG tablet 2 tablet 2 tablet, Oral, EVERY 4 HOURS PRN, Severe Pain, Starting on [place] 01/24/18 at 1813, Until Sun01/30/18 at 2000 $ Given 01/30/2018 1:57 PM CDT 2 tablets $ Given 01/30/2018 9:40 AM CDT 2 tablets $ Given 01/30/2018 4:07 AM CDT 2 tablets pantoprazole EC (PROTONIX) tablet 40 mg 40 mg, Oral, DAILY, 365 doses, First dose on Sun01/25/18 at 0900, Last dose on Sun01/24/19 at 0900, Do not crush, chew, or cut in half. $ Given 01/30/2018 8:25 AM CDT 40 mg $ Given 01/29/2018 8:29 AM CDT 40 mg $ Given 01/28/2018 8:35 AM CDT 40 mg perflutren Lipid Microsphere (DEFINITY) injection SUSP 1.5 mL 1.5 mL, Intravenous, INTRA-PROCEDURE ONCE, 1 dose, On Sun01/25/18 at 1019, Shake well before using. $ Given 01/25/2018 10:29 AM CDT 1.5 mL polyethylene glycol 3350 (MIRALAX) packet 17 g 17 g, Oral, DAILY, 30 doses, First dose on Sun01/25/18 at 0900, Last dose on Sun02/23/18 at 0900, Mix in 8 ounces of water, juice, soda, coffee or tea prior to administration $ Given 01/30/2018 8:25 AM CDT 17 g $ Given 01/29/2018 8:31 AM CDT 17 g $ Given 01/28/2018 8:34 AM CDT 17 g potassium chloride (KLOR-CON) packet 20 mEq 20 mEq, Oral, 2 TIMES DAILY, 730 doses, First dose on Sun01/27/18 at 1100, Last dose on Sun01/26/19 at 2100, DISSOLVE IN 120 ML OF COLD WATER OR JUICE AND DRINK SLOWLY $ Given 01/30/2018 8:26 AM CDT 20 mEq $ Given 01/29/2018 8:33 PM CDT 20 mEq $ Given 01/29/2018 8:30 AM CDT 20 mEq potassium chloride (KLOR-CON) packet 20 mEq 20 mEq, Oral, ONCE, 1 dose, On Sun01/29/18 at 0915, DISSOLVE IN 120 ML OF COLD WATER OR JUICE AND DRINK SLOWLY $ Given 01/29/2018 11:30 AM CDT 20 mEq potassium chloride (KLOR-CON) packet 60 mEq 60 mEq, Oral, ONCE, 1 dose, On Sun01/28/18 at 0930, DISSOLVE IN 120 ML OF COLD WATER OR JUICE AND DRINK SLOWLY $ Given 01/28/2018 10:42 AM CDT 60 mEq potassium chloride 20 mEq in 100 mL bolus 20 mEq, at 50 mL/hr, Administer over 2 Hours, Intravenous, ONCE, 1 dose, On Sun01/26/18 at 0830 $ New Bag/Syringe 01/26/2018 9:26 AM CDT 20 mEq 50 mL/hr senna-docusate (SENOKOT-S) tablet 1 tablet 1 tablet, Oral, AT BEDTIME, 30 doses, First dose on Sun01/25/18 at 2100, Last dose on Sun02/23/18 at 2100 $ Given 01/29/2018 8:33 PM CDT 1 tablet $ Given 01/28/2018 9:27 PM CDT 1 tablet $ Given 01/27/2018 8:00 PM CDT 1 tablet vasopressin (VASOSTRICT) 40 Units in dextrose 5 % 40 mL infusion 0-0.04 Units/min (0-2.4 mL/hr), Intravenous, CONTINUOUS, Starting on Sun01/24/18 at 1600, Until Sun01/25/18 at 1537, Start at 0.04 units/min . Titrate for MAP > 60. SBP > 90, Titration Parameters: Custom Parameters, Indication: Hypotension, Initiate infusion at: 0.04 units/min, Titrate infusion by: 0.01 units/min, Titrate every: 15 minutes, To maintain a: MAP greater than or equal to 65 mmHg, Notify physician if: MAP less than 65 mmHg despite max dose, Post-op Current Rate 01/25/2018 7:11 AM CDT 0.02 Units/min 1.2 mL/hr $ New Bag/Syringe 01/25/2018 6:45 AM CDT 0.04 Units/min 2. 4 mL/hr Current Rate 01/24/2018 4:00 PM CDT 0.04 Units/min 2.4 mL/ hr muojn-bsn-wetrawcy (HOG) enema 360 mL 360 mL, Rectal, ONCE, 1 dose, On Sun01/29/18 at 0915, Please give if patient unable to have BM independently by mid-morning. $ Given 01/29/2018 11:34 AM CDT 360 mL documented in this encounter Active and Recently Administered Medications Times are shown in CDT. Scheduled Medication Order 01/28/2018 01/29/2018 01/30/2018 0.9% NaCl injection 10 mL 10 mL, Intracatheter, EVERY 8 HOURS, 1095 doses, First dose on Sun01/24/18 at 1600, Last dose on Sun01/24/19 at 0600, FLUSH 0645 ($ Given - Provider: Richa Ramirez RN)1531 ($ Given - Provider: Sage Pena RN)2127 ($ Given - Provider: Pilar Narvaez RN) 0548 ($ Given - Provider: Pilar Narvaez RN)1324 ($ Given - Provider: Sage Pena, ZACHARY)2114 ($ Given - Provider: Sloane Andrade, RN) 0607 ($ Given - Provider: Sloane Andrade, RN)1358 ($ Given - Provider: Ruthann Becker, RN) albuterol-ipratropium (DUO-NEB) nebulizer solution 3 mL 3 mL, Inhalation, EVERY 4 HOURS, 52 doses, First dose on [place] 01/24/18 at 1600, Last dose on 02/02/18 at 0500 0133 ($ Given - Provider: Benton Villaseñor [facility])0508 ($ Given - Provider: Benton Villaseñor [employer])0954 ($ Given - Provider: Martinez Liriano [facility])1353 ($ Given - Provider: Martinez Liriano [facility])1654 ($ Given - Provider: Martinez Liriano [facility])2109 ($ Given - Provider: Nehemias Bruno [facility]) 0114 ($ Given - Provider: Nehemias Bruno [employer])0518 ($ Given - Provider: Nehemias Bruno [facility])0840 ($ Given - Provider: Abdon Vazquez [facility])1331 ($ Given - Provider: Abdon Vazquez [facility])1602 ($ Given - Provider: Av Avery [facility])2103 ($ Given - Provider: Nehemias Bruno [facility]) 0054 ($ Given - Provider: Nehemias Bruno [employer]ST[employer] HEL[employer])0505 ($ Given - Provider: Nehemias Bruno [employer] INSTALLER HELPER)1052 ($ Given - Provider: Martinez Liriano [facility])1324 ($ Given - Provider: Martinez Liriano [facility])1622 ($ Given - Provider: Martinez Liriano [employer]) aspirin (ASPIRIN) chew tablet 81 mg 81 mg, Oral, DAILY, 365 doses, First dose on Sun01/25/18 at 0900, Last dose on Sun01/24/19 at 0900 0835 ($ Given - Provider: Sage Pena RN) 0830 ($ Given - Provider: Sage Pena RN) 0825 ($ Given - Provider: Ruthann Becker, ZACHARY) atorvastatin (LIPITOR) tablet 20 mg 20 mg, Oral, AT BEDTIME, 365 doses, First dose on Sun01/25/18 at 2100, Last dose on Sun01/24/19 at 2100 2128 ($ Given - Provider: Pilar Narvaez RN) 2033 ($ Given - Provider: Sloane Andrade, ZACHARY) furosemide (LASIX) injection 40 mg(Linked Group 1) 40 mg, Intravenous, 2 TIMES DAILY, 730 doses, First dose on Sun01/27/18 at 1700, Last dose on Sun01/27/19 at 0900 0835 ($ Given - Provider: Sage Pena, ZACHARY)1829 ($ Given - Provider: Pilar Narvaez RN) 0831 ($ Given - Provider: Sage Pena RN)1733 ($ Given - Provider: Sage Pena RN) 0825 ($ Given - Provider: Ruthann Becker, ZACHARY)1736 (Not Administered - Provider: Ruthann Becker RN - Reason: See Comments - Comment: Patient to be discharged in 30 minutes. Not wanting in light of drive home.) heparin injection 5,000 Units 5,000 Units, Subcutaneous, EVERY 8 HOURS, 1095 doses, First dose on Sun01/26/18 at 2200, Last dose on Sun01/26/19 at 1400 0645 ($ Given - Provider: Richa Ramirez RN)1531 ($ Given - Provider: Sage Pena RN)2127 ($ Given - Provider: Pilar Narvaez RN) 0547 ($ Given - Provider: Pilar Narvaez RN)1323 ($ Given - Provider: Sage Pena RN)2113 ($ Given - Provider: Sloane Andrade, ZACHARY) 0607 ($ Given - Provider: Sloane Andrade, ZACHARY)1358 ($ Given - Provider: Ruthann Becker, ZACHARY) insulin aspart (NovoLOG) pen 0-12 Units 0-12 Units, Subcutaneous, 3 TIMES DAILY WITH MEALS, 1095 doses, First dose on Sun01/25/18 at 1200, Last dose on Sun01/25/19 at 0800, Obtain current Blood Glucose if necessary. May be given immediately before meal, during meal, or immediately after meal is eaten. Meal must be present before administration. Fingerstick glucose less than 50 or with symptomatic hypoglycemia; Repeat STAT fingerstick glucose, obtain STAT blood glucose, immediately start the hypoglycemia protocol, and notify physician. ?? Fingerstick glucose 50-79; Repeat STAT fingerstick glucose, if able to take PO then give (4 oz. of fruit juice, 4 oz. regular soda, or 8 oz. low-fat milk), and if unable to take PO then notify physician for instructions. ?? Fingerstick glucose 80-120; Do nothing. ?? Fingerstick glucose 121-150; Give 2 units subcutaneously. ?? Fingerstick glucose 151-199; Give 4 units subcutaneously. ?? Fingerstick glucose 200-250; Give 6 units subcutaneously. ?? Fingerstick glucose 251-300; Give 8 units subcutaneously. ?? Fingerstick glucose 301-350; Give 10 units subcutaneously. ?? Fingerstick glucose greater than 350; Repeat STAT fingerstick glucose, 12 units subcutaneously 0836 ($ Given - Provider: Sage Pena RN)1245 ($ Given - Provider: Sage Pena RN)1829 ($ Given - Provider: Pilar Narvaez RN) 0741 ($ Given - Provider: Sage Pena RN)1324 ($ Given - Provider: Sage Pena RN)1733 ($ Given - Provider: Sage Pena RN) 0836 ($ Given - Provider: Ruthann Becker, ZACHARY)1222 ($ Given - Provider: Ruthann Becker, ZACHARY)1806 ($ Given - Provider: Ruthann Becker, ZCAHARY) magnesium oxide (MAG-OX) tablet 800 mg 800 mg, Oral, 2 TIMES DAILY, 730 doses, First dose on Sun01/28/18 at 0945, Last dose on Sun01/27/19 at 2100 1042 ($ Given - Provider: Sage Pena RN)2127 ($ Given - Provider: Pilar Narvaez RN) 0829 ($ Given - Provider: Sage Pena RN)2033 ($ Given - Provider: Sloane Andrade RN) 0825 ($ Given - Provider: Ruthann Becker, ZACHARY) magnesium sulfate 2 g in 50 mL bolus (COMPLETED) 2 g, at 25 mL/hr, Administer over 120 Minutes, Intravenous, ONCE, 1 dose, On 01/28/18 at 0930, Infuse at 1 gm/hr 1042 ($ New Bag/Syringe - Provider: Sage Pena RN)1245 (Stopped - Provider: Sage Pena RN) metoprolol tartrate (LOPRESSOR) tablet 25 mg 25 mg, Oral, 2 TIMES DAILY, 727 doses, First dose (after last modification) on 01/27/18 at 2100, Last dose on Sun01/25/19 at 2100 0835 ($ Given - Provider: Sage Pena RN)2127 ($ Given - Provider: Pilar Narvaez RN) 0830 ($ Given - Provider: Sage Pena, ZACHARY)203 ($ Given - Provider: Sloane Andrade RN) 0825 ($ Given - Provider: Ruthann Becker, ZACHARY) mupirocin calcium (BACTROBAN) 2 % cream Topical, 2 TIMES DAILY, 730 doses, First dose on Sun01/24/18 at 2100, Last dose on Sun01/24/19 at 0900, Apply to both nares 0835 ($ Given - Provider: Sage Pena RN)2134 ($ Given - Provider: Pilar Narvaez, ZACHARY) 0831 ($ Given - Provider: Sage Pena RN)2114 ($ Given - Provider: Sloane Andrade RN) 0836 ($ Given - Provider: Ruthann Becker, ZACHARY) pantoprazole EC (PROTONIX) tablet 40 mg 40 mg, Oral, DAILY, 365 doses, First dose on Sun01/25/18 at 0900, Last dose on Sun01/24/19 at 0900, Do not crush, chew, or cut in half. 0835 ($ Given - Provider: Sage Pena RN) 0829 ($ Given - Provider: Sage Pena RN) 0825 ($ Given - Provider: Ruthann Becker RN) polyethylene glycol 3350 (MIRALAX) packet 17 g 17 g, Oral, DAILY, 30 doses, First dose on Sun01/25/18 at 0900, Last dose on Sun02/23/18 at 0900, Mix in 8 ounces of water, juice, soda, coffee or tea prior to administration 0834 ($ Given - Provider: Sage Pena RN) 0831 ($ Given - Provider: Sage Pena RN) 0825 ($ Given - Provider: Ruthann Becker RN) potassium chloride (KLOR-CON) packet 20 mEq(Linked Group 1) 20 mEq, Oral, 2 TIMES DAILY, 730 doses, First dose on 01/27/18 at 1100, Last dose on 01/26/19 at 2100, DISSOLVE IN 120 ML OF COLD WATER OR JUICE AND DRINK SLOWLY 0834 ($ Given - Provider: Sage Pena RN)212 ($ Given - Provider: Pilar Narvaez RN) 0830 ($ Given - Provider: Sage Pena RN)2032 ($ Given - Provider: Sloane Andrade, ZACHARY) 0826 ($ Given - Provider: Ruthann Becker, ZACHARY) potassium chloride (KLOR-CON) packet 20 mEq (COMPLETED) 20 mEq, Oral, ONCE, 1 dose, On Sun01/29/18 at 0915, DISSOLVE IN 120 ML OF COLD WATER OR JUICE AND DRINK SLOWLY 1130 ($ Given - Provider: Sage Pena RN) potassium chloride (KLOR-CON) packet 60 mEq (COMPLETED) 60 mEq, Oral, ONCE, 1 dose, On Sun01/28/18 at 0930, DISSOLVE IN 120 ML OF COLD WATER OR JUICE AND DRINK SLOWLY 1042 ($ Given - Provider: Sage Pena RN) senna-docusate (SENOKOT-S) tablet 1 tablet 1 tablet, Oral, AT BEDTIME, 30 doses, First dose on Sun01/25/18 at 2100, Last dose on Sun02/23/18 at 2100 2126 ($ Given - Provider: Pilar Narvaez RN) 2032 ($ Given - Provider: Sloane Andrade, ZACHARY) vbupj-jpa-vblzngpc (HOG) enema 360 mL (COMPLETED) 360 mL, Rectal, ONCE, 1 dose, On Sun01/29/18 at 0915, Please give if patient unable to have BM independently by mid-morning. 1134 ($ Given - Provider: Sage Pena, RN) PRN Medication Order 01/28/2018 01/29/2018 01/30/2018 0.9% NaCl injection 10 mL 10 mL, Intracatheter, PRN, Other, Starting on Sun01/24/18 at 1526, Until Sun01/30/18 at 2000, FLUSH PRN Until Discontinued 1358 ($ Given - Provider: Ruthann Becker, ZACHARY) bisacodyl (DULCOLAX) suppository 10 mg 10 mg, Rectal, DAILY PRN, Constipation, Starting on Sun01/25/18 at 0630, Until Sun01/30/18 at 1999 1052 ($ Given - Provider: Sage Pena, ZACHARY) calcium gluconate 2 g in 0.9% NaCl 120 mL IVPB Bolus 2 g, at 120 mL/hr, Intravenous, PRN, iCa less than 1.2, Starting on Sun01/24/18 at 2221, Until Sun01/30/18 at 1999, As needed for iCa less than 1.2, recheck iCa in 30 minutes and repeat to maintain iCa greater than 1.2 dextrose IV 12.5-25 g 12.5-25 g (25-50 mL), Intravenous, PRN, Bedside Glucose less than 70 mg/dL -If NOT able to eat and/or NPO and with IV Access, Starting on Sun01/24/18 at 1639, Until Sun01/30/18 at 1999, If NOT able to eat and/or NPO and with IV Access: For Bedside Glucose 50-69 mg/dL give 25 mls D50W IVP STAT For Bedside glucose 50 mg/dL or LESS verify with a second Bedside Glucose (from a different site) and give 50 mls D50W IVP STAT Re-check and Re-treat blood glucose EVERY 10-25 minutes until blood glucose GREATER than or equal to 80 mg/dl. NOTIFY PROVIDER OF HYPOGLYCEMIC EVENT. glucagon (GLUCAGEN) injection 1 mg 1 mg, Intramuscular, PRN, Bedside Glucose less than 70 mg/dL - If NOT able to eat and/or NPO and withOUT IV Access, Starting on [place] 01/24/18 at 1639, Until Sun01/30/18 at 1999, If NOT able to eat and/or NPO and NO IV Access: For Bedside glucose 50-69 mg/dL Give 1 mg IM or SQ For Bedside Glucose LESS than 50 mg/dl verify with a second bedside glucose (from a different site) and Give 1 mg IM or SQ Re-check and Re-treat blood glucose EVERY 10-25 minutes until blood glucose GREATER than or equal to 80 mg/dl. NOTIFY PROVIDER OF HYPOGLYCEMIC EVENT. Reconstitute vial with 1 mL of sterile water for injection for a final concentration of 1 mg/mL; shake vial gently; use immediately and discard unused portion glucose (Diabetic Use) oral gel Oral, PRN, Other, Bedside Glucose less than 70 mg/dL -If able to eat and does not have swallowing difficulties, Starting on [place] 01/24/18 at 1639, Until Sun01/30/18 at 1999, If able to eat and does not have swallowing difficulties: For Bedside Glucose 50 - 69 mg/dL Give 15 grams of oral carbohydrates - 1 glucose gel (see MAR) If patient refuses glucose gel, then offer: - 4 ounces of fruit juice OR - 4 ounces non-diet soda OR - 8 ounces of fat-free milk For Bedside Glucose LESS than 50 mg/dL verify with a second Bedside Glucose (from a different site) - If pt is symptomatic, do not delay treatment If the patient is exhibiting symptoms which are not consistent with the results obtained, confirm the glucose with a STAT laboratory test. Give [...] 80 mg/dl. NOTIFY PROVIDER OF HYPOGLYCEMIC EVENT. magnesium hydroxide (MILK OF MAGNESIA) suspension 30 mL 30 mL, Oral, DAILY PRN, Constipation, Starting on Sun01/25/18 at 0630, Until Sun01/30/18 at 1999, Shake well before using. ondansetron (ZOFRAN) injection 4 mg 4 mg, Intravenous, EVERY 6 HOURS PRN, Nausea/Vomiting, Starting on [place] 01/24/18 at 1526, Until 01/30/18 at 1999 oxyCODONE-acetaminophen (PERCOCET) 5-325 MG tablet 1 tablet(Linked Group 2) 1 tablet, Oral, EVERY 4 HOURS PRN, Moderate Pain, Starting on [place] 01/24/18 at 1813, Until 01/30/18 at 1999 0645 (See Alternative - Provider: Richa Ramirez RN)1828 (See Alternative - Provider: Pilar Narvaez RN)2314 (See Alternative - Provider: Pilar Narvaez RN) 0547 (See Alternative - Provider: Pilar Narvaez RN)1132 (See Alternative - Provider: Sage Pena RN)1823 (See Alternative - Provider: Sage Pena RN)2225 (See Alternative - Provider: Sloane Andrade RN) 0407 (See Alternative - Provider: Sloane Andrade RN)0940 (See Alternative - Provider: Ruthann Becker RN)1357 (See Alternative - Provider: Ruthann Becker, ZACHARY) oxyCODONE-acetaminophen (PERCOCET) 5-325 MG tablet 2 tablet(Linked Group 2) 2 tablet, Oral, EVERY 4 HOURS PRN, Severe Pain, Starting on [place] 01/24/18 at 1813, Until 01/30/18 at 1999 0645 ($ Given - Provider: Richa Ramirez RN)1828 ($ Given - Provider: Pilar Narvaez RN)2314 ($ Given - Provider: Pilar Narvaez RN) 0547 ($ Given - Provider: Pilar Narvaez RN)1132 ($ Given - Provider: Sage Pena RN)1823 ($ Given - Provider: Sage Pena RN)2225 ($ Given - Provider: Sloane Andrade RN) 0407 ($ Given - Provider: Sloane Andrade RN)0940 ($ Given - Provider: Ruthann Becker, ZACHARY)1357 ($ Given - Provider: Ruthann Becker RN - Comment: sternotomy) Linked Groups Order Group 1: furosemide (LASIX) injection 40 mgJump to med 40 mg, Intravenous, 2 TIMES DAILY, 730 doses, First dose on 01/27/18 at 1700, Last dose on 01/27/19 at 0900 And potassium chloride (KLOR-CON) packet 20 mEqJump to med 20 mEq, Oral, 2 TIMES DAILY, 730 doses, First dose on 01/27/18 at 1100, Last dose on 01/26/19 at 2100, DISSOLVE IN 120 ML OF COLD WATER OR JUICE AND DRINK SLOWLY Group 2: oxyCODONE-acetaminophen (PERCOCET) 5-325 MG tablet 1 tabletJump to med 1 tablet, Oral, EVERY 4 HOURS PRN, Moderate Pain, Starting on Loreta 01/24/18 at 1813, Until 01/30/18 at 2000 Or oxyCODONE-acetaminophen (PERCOCET) 5-325 MG tablet 2 tabletJump to med 2 tablet, Oral, EVERY 4 HOURS PRN, Severe Pain, Starting on Loreta 01/24/18 at 1813, Until Sun01/30/18 at 1999 documented in this encounter Care Teams Biometry Teacher Relationship Specialty Start Date End Date Lisy Olmedo MD PCP - General 04/20/09 05/09/22 documented as of this encounter
--- OUTSIDE RECORDS SUMMARY | 2024-10-11 19:46 | XMS_ITS | Encounter Summary ---
Author Organization [facility] Health Address [address] [place] [address] Care Team Providers Care Helicopter Technician Name Role Phone Lisy Olmedo MD Primary Care Provide r Encounter Details Date Type Department Care Team (Late st Contact Info) Description 03/20/2018 11:00 AM CDT Cardiac Rehab [facility] [address] [place] [address] S/P CABG x 3 Social History Tobacco [...] as of this encounter Progress Notes * Rosalee Mejia RN - 03/20/2018 1:24 PM CDT See Daily Activity Sheet in Media. documented in this encounter Plan of Treatment Upcoming Encounters Date Type Department Care Team (Late st Contact Info) Description 10/20/2024 8:00 AM STAFF OCCUPATIONAL THERAPIST Office Visit [facility] - Family Medicine 604 [facility], [facility] 150 [place] [phone] Kiana Cole MD 604 [place] [address] 11/28/2024 9:00 AM STAFF OCCUPATIONAL THERAPIST Office Visit [facility] - Neurology 1225 [facility], [place] [address] Aline Finch MD 1201 [facility] [place] [address] 02/10/2025 10:00 AM CDT Office Visit [facility] - Cardiology 1034 [address] [facility], [address] [address] Curly Lay MD [address] [address] documented as of this encounter Visit Diagnoses Diagnosis S/P CABG x 3- Primary Postsurgical aortocoronary bypass status documented in this encounter Care Teams Helicopter Technician Relationship Specialty Start Date End Date Lisy Olmedo MD PCP - General 04/20/09 05/09/22 documented as of this encounter
--- OUTSIDE RECORDS SUMMARY | 2024-10-11 19:46 | XMS_ITS | Encounter Summary ---
Author Organization [facility] Address [address] [place] [address] Care Team Providers Care Mine Wirer Name Role Phone Lisy Olmedo MD Primary Care Provide r Reason for Visit * Reason Onset Date Comments Encounter Opened In Error 01/28/2018 Encounter Details Date Type Department Care Team (Late st Contact Info) Description 01/28/2018 Telephone [facility] [address] [place] [phone] Rosendo Fernandez, MARKETING PRODUCER-SCHOOL TEACHER Encounter Opened In Error Social History Tobacco Use Types Packs/Day Years Used Date Smoking Tobacco: Light Smoker Cigars Smokeless Tobacco: Current Comments:3-4 times / month Sex and Gender Information Value Date Recorded Sex Assigned at Not on file Gender Identity Not on file Sexual Orientation Not on file documented as of this encounter Plan of Treatment Upcoming Encounters Date Type Department Care Team (Late st Contact Info) Description 10/20/2024 8:00 AM CUSTOMER ACCOUNT REPRESENTATIVE Office Visit [facility] - Family Medicine [address] [facility] 150 [place] [phone] Kiana Cole MD [address] [place] [address] 11/28/2024 9:00 AM CUSTOMER ACCOUNT REPRESENTATIVE Office Visit [facility] - Neurology 12[address] [facility], [place] [address] Aline Finch MD [address] [facility] [place] [address] 02/10/2025 10:00 AM CDT Office Visit [facility] - Cardiology [address] [facility], [facility] 1120 [place] [address] Curly Lay MD [address] [place] [address] documented as of this encounter Visit Diagnoses Not on filedocumented in this encounter Care Teams Mine Wirer Relationship Specialty Start Date End Date Lisy Olmedo MD PCP - General 04/20/09 05/09/22 documented as of this encounter
--- OUTSIDE RECORDS SUMMARY | 2024-10-11 19:46 | XMS_ITS | Encounter Summary ---
Author Organization [facility] Address [address] [place] [address] Care Team Providers Care Gis Analyst Name Role Phone Lisy Olmedo MD Primary Care Provide r Reason for Visit * Reason Onset Date Comments MEDICATION REFILL 07/25/2018 Encounter Details Date Type Department Care Team (Late st Contact Info) Description 07/25/2018 Refill [facility] [address] [address] Lisy Olmedo MD [address] [place] [address] MEDICATION REFILL Social History Tobacco Use Types [...] Contact Info) Description 10/20/2024 8:00 AM TEST RACK OPERATOR Office Visit [facility] - Family Medicine 604 [facility] 150 [place] [phone] Kiana Cole MD 604 [place], [place] [phone] 11/28/2024 9:00 AM TEST RACK OPERATOR Office Visit [facility] - Neurology 12[address] [facility], [place] [address] Aline Finch MD [address]01 [facility] [place] [address] 02/10/2025 10:00 AM CDT Office Visit [facility] - Cardiology [address] [place] [address] Curly Lay MD [address] [place] [address] documented as of this encounter Visit Diagnoses Not on filedocumented in this encounter Care Teams Gis Analyst Relationship Specialty Start Date End Date Lisy Olmedo MD PCP - General 04/20/09 05/09/22 documented as of this encounter
--- OUTSIDE RECORDS SUMMARY | 2024-10-11 19:46 | XMS_ITS | Encounter Summary ---
Author Organization [facility] Health Address [address] [place] [address] Care Team Providers Care Freight Sales Broker Name Role Phone Lisy Olmedo MD Primary Care Provide r Reason for Visit * Reason Onset Date Comments MEDICATION REFILL 08/03/2018 Encounter Details Date Type Department Care Team (Late st Contact Info) Description 08/03/2018 Refill [facility] [address] [address] Lisy Olmedo MD [address] [place] [address] MEDICATION REFILL Social History Tobacco Use Types [...] encounter Miscellaneous Notes * Telephone Encounter - Winter Miriam - 08/06/2018 9:59 AM CDTFrom: Yaya Vazquez To: Lisy Olmedo MD Sent: 08/03/2018 11:35 AM CDT Subject: Medication Renewal Request Original authorizing provider: MD Yaya Ojeda Jr would like a refill of the following medications: glipiZIDE CR 24hr (GLUCOTROL XL) 5 MG tablet [Lisy Olmedo MD] Preferred pharmacy: [facility] [address] [id number] [facility] [address] [phone] Comment: documented in this encounter Plan of Treatment Upcoming Encounters Date Type Department Care Team (Late st Contact Info) Description 10/20/2024 8:00 AM ZINC ETCHER Office Visit [facility] - Family Medicine 604 [facility] 150 [place] [phone] Kiana Cole MD 604 [place] [address] 11/28/2024 9:00 AM ZINC ETCHER Office Visit [facility] - Neurology 1225 [facility], [place] [phone] Aline Finch MD 1201 [facility] [place] [address] 02/10/2025 10:00 AM CDT Office Visit [facility] - Cardiology [address] [facility], [facility] 1120 [place] [address] Curly Lay MD [address] [facility] 1120 [place] [address] documented as of this encounter Visit Diagnoses Not on filedocumented in this encounter Care Teams Freight Sales Broker Relationship Specialty Start Date End Date Lisy Olmedo MD PCP - General 04/20/09 05/09/22 documented as of this encounter
--- OUTSIDE RECORDS SUMMARY | 2024-10-11 19:46 | XMS_ITS | Encounter Summary ---
Author Organization [facility] Health Address [address] [facility] [place] [address] Care Team Providers Care Dry Room Attendant Name Role Phone Lisy Olmedo MD Primary Care Provide r Encounter Details Date Type Department Care Team (Late st Contact Info) Description 03/01/2018 Orders Only [facility] [address] [address] Lisy Olmedo MD [facility] [place] [address] Social History Tobacco Use Types [...] st Contact Info) Description 10/20/2024 8:00 AM COMMUNITY AFFAIRS DIRECTOR Office Visit [facility] - Family Medicine 604 [facility], [facility] 150 [place] [phone] Kiana Cole MD 604 [place] [address] 11/28/2024 9:00 AM COMMUNITY AFFAIRS DIRECTOR Office [facility] - Neurology 1225 [facility], [place] [address] Aline Finch MD 1201 [facility] [place] [place] [address] 02/10/2025 10:00 AM CDT Office [facility] - Cardiology [address] [facility] [address] [place] [address] Curly Lay MD [address] [place] [address] documented as of this encounter Visit Diagnoses Not on filedocumented in this encounter Care Teams Dry Room Attendant Relationship Specialty Start Date End Date Lisy Olmedo MD PCP - General 04/20/09 05/09/22 documented as of this encounter
--- OUTSIDE RECORDS SUMMARY | 2024-10-11 19:46 | XMS_ITS | Encounter Summary ---
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) ; Hypertension, unspecified type; Type 2 diabetes mellitus with other circulatory complication, without long-term current use of insulin (HCC); S/P CABG x 3 Social History [...] st Contact Info) Description 10/20/2024 8:00 AM COSMETIC CHEMIST Office Visit [facility] - Family Medicine 604 [facility] 150 [place] [address] Kiana Cole MD 604 [place], [place] [phone] 11/28/2024 9:00 AM COSMETIC CHEMIST Office Visit [facility] - Neurology 1225 [facility], [place] [address] Aline Finch MD 1201 [facility] 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
--- OUTSIDE RECORDS SUMMARY | 2024-10-11 19:46 | XMS_ITS | Encounter Summary ---
Author Organization [facility] Health Address [address] [facility] [place] [address] Care Team Providers Care Doughnut Batter Mixer Name Role Phone Lisy Olmedo MD Primary Care Provide r Reason for Visit * Reason Onset Date Comments Cardiac Rehab 02/13/2018 Encounter Details Date Type Department Care Team (Late st Contact Info) Description 02/13/2018 Telephone [facility] [address] [place] [address] Kecia Wang, health and human performance professor Social History Tobacco Use Types Packs/Day Years [...] encounter Miscellaneous Notes * Telephone Encounter - Kecia Wang, ZACHARY - 02/13/2018 1:11 PM CDT Spoke with patient today and set up for cardiac rehab orientation on February 22 at 1 pm. Let patient know insurance coverage information. documented in this encounter Plan of Treatment Upcoming Encounters Date Type Department Care Team (Late st Contact Info) Description 10/20/2024 8:00 AM TUBE BUILDER AIRPLANE Office Visit [facility] - Family Medicine 604 [facility] 150 [place] [address] Kiana Cole MD 604 [place], [place] [phone] 11/28/2024 9:00 AM TUBE BUILDER AIRPLANE Office Visit [facility] - Neurology 1225 [facility], [place] [address] Aline Finch MD [address] [facility] [place] [address] 02/10/2025 10:00 AM CDT Office Visit [facility] - Cardiology 10[address] [facility], [facility] 1120 [place] [address] Curly Lay MD [address] [facility] 1120 [place] [address] documented as of this encounter Visit Diagnoses Not on filedocumented in this encounter Care Teams Doughnut Batter Mixer Relationship Specialty Start Date End Date Lisy Olmedo MD PCP - General 04/20/09 05/09/22 documented as of this encounter
--- OUTSIDE RECORDS SUMMARY | 2024-10-11 19:46 | XMS_ITS | Encounter Summary ---
Author Organization [facility] Health Address [address] [place] [address] Care Team Providers Care American Board Certified Orthotist Name Role Phone Lisy Olmedo MD Primary Care Provide r Reason for Visit * Reason Onset Date Comments Follow-up 03/05/2018 Encounter Details Date Type Department Care Team (Late st Contact Info) Description 03/05/2018 Telephone [facility] [address] [facility] 1120 [place] [address] Rachell Reed, RN Follow-up Social History Tobacco Use Types Packs/Day [...] Yes 01/30/2018 Cognitive Status Response Date of Assess ent Does person have difficulty concentrating/remembering/making decisions? No 01/30/2018 documented as of this encounter Miscellaneous Notes * Telephone Encounter - Rachell Reed RN - 03/05/2018 4:34 PM CDT Re[facility] - requesting call back to discuss plans for return to work for this patient. Returned call, left message at [phone] ext [phone] - stating that as of previous discussion with patient and Dr. Dennis the goal is to return to work the end of March depending on continued recovery. documented in this encounter Plan of Treatment Upcoming Encounters Date Type Department Care Team (Late st Contact Info) Description 10/20/2024 8:00 AM LEATHER COVERER Office Visit [facility] - Family Medicine [address] [phone] Kiana Cole MD 604 [place], [place] [phone] 11/28/2024 9:00 AM LEATHER COVERER Office Visit [facility] - Neurology 1225 [facility], [place] [address] Aline Finch MD 1201 [facility] [place] [place] [address] 02/10/2025 10:00 AM CDT Office Visit [facility] - Cardiology [address] [facility], [facility] 1120 [place] [address] Curly Lay MD [address] [place] [address] documented as of this encounter Visit Diagnoses Not on filedocumented in this encounter Care Teams American Board Certified Orthotist Relationship Specialty Start Date End Date Lisy Olmedo MD PCP - General 04/20/09 05/09/22 documented as of this encounter
--- OUTSIDE RECORDS SUMMARY | 2024-10-11 19:46 | XMS_ITS | Encounter Summary ---
Author Organization [facility] Health Address [address] [facility] [place] [address] Care Team Providers Care Camera Engineer Name Role Phone Lisy Olmedo MD Primary Care Provide r Reason for Visit * Reason Onset Date Comments Follow-up 02/22/2018 Encounter Details Date Type Department Care Team (Late st Contact Info) Description 02/22/2018 Telephone [facility] [address] [place] [address] Rosalee Ivory MD [address] [facility] 1120 [place] [address] Follow-up Social History Tobacco Use Types Packs/Day [...] encounter Miscellaneous Notes * Telephone Encounter - Rosalee Mejia RN - 02/22/2018 1:35 PM CDT Cardiopulmonary Rehab: Pt left message stating need to cancel orientation visit to Cardiac Rehab. To call in a couple of weeks to reschedule. documented in this encounter Plan of Treatment Upcoming Encounters Date Type Department Care Team (Late st Contact Info) Description 10/20/2024 8:00 AM WELL DRILL OPERATOR Office Visit [facility] - Family Medicine 604 [facility] 150 [place] [phone] Kiana Cole MD 604 [place], [place] [phone] 11/28/2024 9:00 AM WELL DRILL OPERATOR Office Visit [facility] - Neurology 1225 [facility], [place] [address] Aline Finch MD 1201 [facility] [place] [address] 02/10/2025 10:00 AM CDT Office Visit [facility] - Cardiology [address] [facility], [facility] 1120 [place] [address] Curly Lay MD [address] [facility] 1120 [place] [address] documented as of this encounter Visit Diagnoses Not on filedocumented in this encounter Care Teams Camera Engineer Relationship Specialty Start Date End Date Lisy Olmedo MD PCP - General 04/20/09 05/09/22 documented as of this encounter
--- OUTSIDE RECORDS SUMMARY | 2024-10-11 19:46 | XMS_ITS | Encounter Summary ---
Author Organization [facility] Health Address [address] [place] [address] Care Team Providers Care Money Order Clerk Name Role Phone Lisy Olmedo MD Primary Care Provide r Reason for Visit * Reason Onset Date Comments Referral 02/28/2018 Encounter Details Date Type Department Care Team (Late st Contact Info) Description 02/28/2018 Telephone [facility] [address] [phone] Kel Smith MD [address] [place] [address] Referral Social History Tobacco Use Types Packs/Day Years [...] encounter Miscellaneous Notes * Telephone Encounter - Maurice, Yareli - 02/28/2018 9:45 AM CDT Pt was contacted in regards to the Cardiac Rehab referral received. Pt is still very interested andwas informed about class times and transportation assistance. Cardiac air analyst's to verify insurance and follow-up with pt. Yareli Richards documented in this encounter Plan of Treatment Upcoming Encounters Date Type Department Care Team (Late st Contact Info) Description 10/20/2024 8:00 AM SUPERVISOR WEAVING Office Visit [facility] - Family Medicine 604 [facility] 150 [place] [phone] Kiana Cole MD 604 [place] [address] 11/28/2024 9:00 AM SUPERVISOR WEAVING Office Visit [facility] - Neurology 1225 [facility], [place] [address] Aline Finch MD 1201 [facility] [place] [place] [address] 02/10/2025 10:00 AM CDT Office Visit [facility] - Cardiology [address] [facility], [facility] 1120 [place] [address] Curly Lay MD [address] [place] [address] documented as of this encounter Visit Diagnoses Not on filedocumented in this encounter Care Teams Money Order Clerk Relationship Specialty Start Date End Date Lisy Olmedo MD PCP - General 04/20/09 05/09/22 documented as of this encounter
--- OUTSIDE RECORDS SUMMARY | 2024-10-11 19:46 | XMS_ITS | Encounter Summary ---
Author Organization [facility] Health Address [address] [place] [address] Care Team Providers Care Health Promotion Manager Name Role Phone Lisy Olmedo MD Primary Care Provide r Encounter Details Date Type Department Care Team (Late st Contact Info) Description 02/12/2018 Orders Only [facility] [address] [place] [address] Suyapa Meredith Social History Tobacco Use Types Packs/Day Years [...] st Contact Info) Description 10/20/2024 8:00 AM LIFE SCIENCES MANAGER Office Visit [facility] - Family Medicine 604 [facility] 150 [place] [phone] Kiana Cole MD 604 [place] [address] 11/28/2024 9:00 AM LIFE SCIENCES MANAGER Office Visit [facility] - Neurology 1225 [facility], [place] [address] Aline Finch MD 1201 [facility] [place] [address] 02/10/2025 10:00 AM CDT Office Visit [facility] - Cardiology [address] [facility] 1120 [place] [address] Curly Lay MD [address] [place] [address] documented as of this encounter Visit Diagnoses Not on filedocumented in this encounter Care Teams Health Promotion Manager Relationship Specialty Start Date End Date Lisy Olmedo MD PCP - General 04/20/09 05/09/22 documented as of this encounter
--- OUTSIDE RECORDS SUMMARY | 2024-10-11 19:46 | XMS_ITS | Encounter Summary ---
Author Organization [facility] Address [address] [place] [address] Care Team Providers Care Soil Science Professor Name Role Phone Lisy Olmedo MD Primary Care Provide r Reason for Visit * Reason Comments Post-Op Encounter Details Date Type Department Care Team (Late st Contact Info) Description 02/13/2018 9:45 AM CDT Office Visit [facility] [address] [address] [address] [place] [address] Fabienne Cardona MD [address] [place] [phone] S/P CABG x 3 (Primary Dx) Social History Tobacco Use Types Packs/Day Years Used Date Smoking Tobacco: Former Cigars Smokeless Tobacco: Never Comments:3-4 times / month Sex and Gender Information Value Date Recorded Sex Assigned at Not on file Gender Identity Not on file Sexual Orientation Not on file documented as of this encounter Last Filed Vital Signs Vital Sign Reading Time Taken Comments Blood Pressure 130/86 02/13/2018 9:58 AM CDT Pulse 68 02/13/2018 9:58 AM CDT Temperature - - Respiratory Rate - - Oxygen Saturation 97% 02/13/2018 9:58 AM CDT Inhaled Oxygen Concentration - - Weight - - Height 193 cm (6' 4 ) 02/13/2018 9:58 AM CDT Body Mass Index - - documented in [...] as of this encounter Progress Notes * Fabienne Cardona MD - 02/13/2018 11:56 AM CDT Here for follow up after CABG. Reports doing well, ambulating without chest pain or dyspnea. Askingabout working out. BP 130/86 (BP SITE: LEFT ARM, BP POSITION: SITTING) Pulse 68 Ht 6' 4 (1.93 m) SpO2 97% Heart RRR Lungs CTAB Sternal and right arm incisions clean, dry, intact No extremity edema Impression: s/p CABG Refer to cardiac rehab Has followup with Dr. Dennis RTC PRMak Cardona MD 02/13/2018 11:57 AM documented in this encounter Plan of Treatment Upcoming Encounters Date Type Department Care Team (Late st Contact Info) Description 10/20/2024 8:00 AM COMPUTER APPLICATIONS INSTRUCTOR Office Visit [facility] - Family Medicine [address], [facility] [address] [place] [phone] Kiana Cole MD [address] [place] [address] 11/28/2024 9:00 AM COMPUTER APPLICATIONS INSTRUCTOR Office Visit [facility] - Neurology [facility] [facility], [facility] [place] [address] Aline Finch MD [address] [place] [address] 02/10/2025 10:00 AM CDT Office Visit [facility] - Cardiology [address] [facility] [place] [address] [place] [address] Curly Lay MD [address] [facility] [address] [place] [address] documented as of this encounter Visit Diagnoses Diagnosis S/P CABG x 3- Primary Postsurgical aortocoronary bypass status documented in this encounter Care Teams Soil Science Professor Relationship Specialty Start Date End Date Lisy Olmedo MD PCP - General 04/20/09 05/09/22 documented as of this encounter
--- OUTSIDE RECORDS SUMMARY | 2024-10-11 19:46 | XMS_ITS | Encounter Summary ---
Author Organization [facility] Address [address] [place] [address] Care Team Providers Care Icing Maker Name Role Phone Lisy Olmedo MD Primary Care Provide r Encounter Details Date Type Department Care Team (Late st Contact Info) Description 03/13/2018 11:00 AM CDT Cardiac Rehab [facility] [address] [place] [address] Coronary artery disease due to lipid rich plaque ; S/P CABG x 3 Social History [...] as of this encounter Progress Notes * Maria Del Rosario Soriano RN - 03/13/2018 2:08 PM CDT See daily exercise log dated 03/13/18 in media, pt stated he plans to get a glucose monitor soon. Bld sugars and exercise handout given and discussed. Deferred entry 6 walk today due to patient getting bld work done at [facility] after orientation to [facility] cardiac rehab program. Plan to do entry 6 walk on Sunday03/18/18. documented in this encounter Plan of Treatment Upcoming Encounters Date Type Department Care Team (Late st Contact Info) Description 10/20/2024 8:00 AM CARDIOTHORACIC ICU RN Office Visit [facility] - Family Medicine [address] [facility] [address] [place] [phone] Kiana Cole MD [address] [place] [address] 11/28/2024 9:00 AM CARDIOTHORACIC ICU RN Office Visit [facility] - Neurology [address] [facility] [place] [address] Aline Finch MD [address] [facility] [place] [place] [address] 02/10/2025 10:00 AM CDT Office Visit [facility] - Cardiology [address] [facility], [facility] [place] [address] [place] [address] Curly Lay MD [address] [facility] [address] [place] [address] documented as of this encounter Visit Diagnoses Diagnosis Coronary artery disease due to lipid rich plaque- Primary S/P CABG x 3 Postsurgical aortocoronary bypass status documented in this encounter Care Teams Icing Maker Relationship Specialty Start Date End Date Lisy Olmedo MD PCP - General 04/20/09 05/09/22 documented as of this encounter
--- OUTSIDE RECORDS SUMMARY | 2024-10-11 19:46 | XMS_ITS | Encounter Summary ---
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 (HCC) ; [...] Sign Reading Time Taken Comments Blood Pressure 144/100 03/18/2018 11:00 AM CDT Pulse 65 03/18/2018 11:00 AM CDT Temperature - - Respiratory Rate - - Oxygen Saturation 96% 03/18/2018 11:00 AM CDT Inhaled Oxygen Concentration - - Weight 136.5 kg (301 lb) 03/18/2018 11:00 AM CDT Height - - Body Mass Index 36.64 02/22/2018 3:21 PM CDT documented in this [...] Notes * Kecia Wang, ZACHARY - 03/18/2018 3:12 PM CDT 03/18/18 1508 6 Min Walk Vitals Pre-Walk Heart Rate 75 (entry to cardiac rehab) Pre-Walk SaO2 96 % Pre O2 Device Room Air - None Ambulation Heart Rate 95 Ambulation SaO2 99 Ambulation O2 Device Room Air - None Post-Walk Heart Rate 61 Post-Walk Blood Pressure 120/80 Post-Walk SaO2 100 % Post O2 Device Room Air - None Totals Ambulation: Total Distance feet 1020 Total Time 6 min Additional Information MPH 1.93 RPE 13 Assistive Devices None Number of Rest Periods 0 * Kecia Wang, ZACHARY - 03/18/2018 2:59 PM CDT See daily exercise activity log in media. Did entry 6 minute walk today. documented in this encounter Plan of Treatment Upcoming Encounters Date Type Department Care Team (Late st Contact Info) Description 10/20/2024 8:00 AM MANUFACTURING CHIEF ENGINEER Office Visit [facility] - Family Medicine [address] [place] [address] [place] [phone] Kiana Cole MD [address] [place] [address] 11/28/2024 9:00 AM MANUFACTURING CHIEF ENGINEER Office Visit [facility] - Neurology [address] [facility] [place] [address] Aline Finch MD [address] [facility] 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
--- OUTSIDE RECORDS SUMMARY | 2024-10-11 19:46 | XMS_ITS | Encounter Summary ---
Author Organization [facility] Address [address] [facility] [place] [address] Care Team Providers Care Wrapping Checker Name Role Phone Lisy Olmedo MD Primary Care Provide r Reason for Visit * Reason Onset Date Comments MEDICATION REFILL 08/02/2018 Encounter Details Date Type Department Care Team (Late st Contact Info) Description 08/02/2018 Refill [facility] [address] [facility] [place] [address] [place] [address] Nehemias Dennis MD [address] [place], [place] [id number] MEDICATION REFILL Social History Tobacco Use Types [...] st Contact Info) Description 10/20/2024 8:00 AM CITY TREASURER Office Visit [facility] - Family Medicine [address] [facility], [facility] [address] [place] [phone] Kiana Cole MD [address] [place] [address] 11/28/2024 9:00 AM CITY TREASURER Office Visit [facility] Group - Neurology [address] [facility] [place] [address] Aline Finch MD [address] [facility] [place] [address] 02/10/2025 10:00 AM CDT Office Visit [facility] - Cardiology [address] [facility] [place] [phone] [place] [address] Curly Lay MD [phone] [place] [address] documented as of this encounter Visit Diagnoses Diagnosis Coronary artery disease involving coronary bypass graft of [place] heart with unstable angina pectoris (HCC) Hypertension, unspecified type S/P CABG x 3 Postsurgical aortocoronary bypass status documented in this encounter Care Teams Wrapping Checker Relationship Specialty Start Date End Date Lisy Olmedo MD PCP - General 04/20/09 05/09/22 documented as of this encounter
--- OUTSIDE RECORDS SUMMARY | 2024-10-11 19:46 | XMS_ITS | Encounter Summary ---
Author Organization [facility] Health Address [address] [place] [address] Care Team Providers Care Technical Photographer Name Role Phone Lisy Olmedo MD Primary Care Provide r Reason for Visit * Reason Comments Chest Pain pt states chest pain last night relieved by nitro then again this am chest pain relieved by nitro. * Auth/Cert Specialty Diagnoses / Procedures Referred By Jenna saleem Referred To Contact Inpatient Care [address] [address] Referral ID Status Reason Start Date Expiration Date Visits Re quested Visits Authorized [id number] 09/06/2018 03/05/2019 1 Encounter Details Date Type Department Care Team (Late st Contact Info) Description 09/04/2018 9:04 AM CIGARETTE PACKER - 09/06/2018 6:04 PM CIGARETTE PACKER Emergency [address] [address] [place] [id number] [address] [place] [address] [place] [id number] [facility] [place] [address] [place] [id number] [facility] [address] Emergency Medicine Discharge Disposition: Home or Self [...] Sign Reading Time Taken Comments Blood Pressure 159/114 09/06/2018 3:56 PM CIGARETTE PACKER Pulse 65 09/06/2018 3:56 PM CIGARETTE PACKER Temperature 37 ??C (98.6 ??F) 09/06/2018 3:56 PM CIGARETTE PACKER Respiratory Rate 18 09/06/2018 3:56 PM CIGARETTE PACKER Oxygen Saturation 97% 09/06/2018 3:56 PM CIGARETTE PACKER Inhaled Oxygen Concentration - - Weight 149.7 kg (330 lb) 09/04/2018 4:03 PM CIGARETTE PACKER Height 193 cm (6' 3.98 ) 09/04/2018 4:03 PM CIGARETTE PACKER Body Mass Index 40.19 09/04/2018 4:03 PM CIGARETTE PACKER documented in this encounter Functional Status Functional [...] as of this encounter Discharge Summaries * Evans Almeida MD - 09/06/2018 6:04 PM CST Physician Discharge Summary Patient Name: Yaya Solorio Date of : 1960 Admit date: 09/04/2018 Discharge date: 09/06/2018 Admitting Physician: Evans Almeida MD Attending Physician: Evans Almeida MD Discharge Physician: Evans Almeida MD Discharge Diagnoses: Chest pain Diagnostic Studies: See hospital course Procedures Please refer to hospital course for specifics Consults Cardiology Reason for Admission (per admission H&P) Patient is a 57 y.o. male with the past medical history of CAD s/p CABG, HTN, HLD, obesity and type 2 Dm admitted with the complaints of mid sternal chest pressure pain which radiated to the left arm. Pt says that he was making some ice cream at that time when he felt the pain at around 8:30 am. He had associated symptom of diaphoresis. Pt says that he had the surgery in January and neverhad any problems since then. Pt's sisters at the bedside says that pt never follow his diet or do exercise. He agrees with that. The patient has taken the nitroglycerine and the pain got resolved. Hedenies any fever,chills, headache, abdominal pain nausea and vomiting. No alleviating or aggravating factors noticed. Hospital Course Chest pain, history of CABG, ruled out ACS. Trop peak at 0.097. ECG Rhythm: normal sinus bradycardia, normal ST. CXR negative. Stress:negative for acute ischemia. Echo:EF 50%, otherwise unremarkable. Cardiology on case. ?? HTN Home meds lasartan, BB, lasix. ?? Others: ?? DM:ISS and accucheck. ?? HLD:home med. ?? DVT PPx:heparin Suq. Upon discharge, stable, symptoms improve. He/She will be discharged to home, follow up with PCP in 1 wk, and the above specialists as scheduled. Final Physical Exam: Please refer to final progress note on day of discharge Vitals at discharge Vitals: 09/05/18 2318 09/06/18 0340 09/06/18 0808 09/06/18 1556 BP: 161/96 158/90 (!) 145/106 (!) 159/114 Pulse: 71 70 65 65 Resp: Temp: 98.7 ??F (37.1 ??C) 98.4 ??F (36.9 ??C) 98.5 ??F (36.9 ??C) 98.6 ??F (37 ??C) SpO2: 94% 95% 95% 97% Weight: Height: Lab Data at discharge Recent Labs Component Name 09/06/18 0318 09/04/18 0923 01/29/18 0620 WBC 5.3 5.3 7.3 HGB 13.3 13.2 8.8* HCT 40.5 40.3 27.7* PLTCOUNT 250 224 - Recent Labs Component Name 09/06/18 0318 09/04/18 0956 SODIUM 135* 135* POTASSIUM 3.5 4.1 CHLORIDE 100 102 CO2 28 28 BUN 14 9 CREATININE 0.97 0.88 GLUCOSE 141* 126* CALCIUM 8.5 8.4* ALBUMIN - 3.3* ALKPHOS - 76 ALT - 18 AST - 17 TBIL - 0.4 TPROT - 8.1 EGFR >60 >60 Recent Labs Component Name 01/25/18 0026 01/24/18 1540 01/24/18 1345 01/11/18 1548 PTT - 35.7 >212.0* 28.6 PT 14.2 14.7 17.4* 12.5 INR 1.1 1.2 1.4 0.9 Condition at discharge: improving Disposition: Home Patient Instructions Current Discharge Medication List START taking these medications Instructions Authorizing Provider amLODIPine 5 MG tablet Commonly known as: NORVASC Quantity Dispensed: 30 tablet Take 1 tablet by mouth once daily Evans Almeida CONTINUE taking these medications which have NOT CHANGED Instructions Authorizing Provider Aspirin 81 MG Take 81 mg by mouth once daily atorvastatin 80 MG tablet Commonly known as: LIPITOR Quantity Dispensed: 30 tablet Take 1 tablet by mouth at bedtime Nehemias Dennis blood glucose test strip Quantity Dispensed: 100 strip Use 1 strip 2 times daily Lisy Olmedo furosemide 40 MG tablet Commonly known as: LASIX Take 40 mg by mouth once daily glipiZIDE XL 5 MG tablet Generic drug: glipiZIDE CR 24hr Quantity Dispensed: 90 tablet TAKE 1 TABLET BY MOUTH ONCE DAILY Lisy Olmedo losartan 50 MG tablet Commonly known as: COZAAR Take 50 mg by mouth once daily metFORMIN 1000 MG tablet Commonly known as: GLUCOPHAGE Quantity Dispensed: 180 tablet Take 1 tablet by mouth 2 times daily with morning and evening meal Mark Raya metoprolol tartrate 50 MG tablet Commonly known as: LOPRESSOR Quantity Dispensed: 60 tablet Take 1 tablet by mouth 2 times daily Nehemias Dennis nitroGLYCERIN 0.4 MG tablet Commonly known as: NITROSTAT Dissolve 0.4 mg under the tongue One Touch Delica Lancets Quantity Dispensed: 100 Each Use 2 times daily Check blood sugars twice daily. Lisy Olmedo ONE TOUCH ULTRA MINI W/DEVICE Kit Quantity Dispensed: 1 kit Check blood sugars twice daily Lisy Olmedo sildenafil 20 MG tablet Commonly known as: REVATIO Take 40-100 mg by mouth 5 times daily as needed Discharge Procedure Orders Follow up instructions The next time you are scheduled to see your doctor, please discuss that you might be having difficulty with breathing while you sleep. Your doctor can then advise if more evaluation is needed. Why you were hospitalized Order Specific Question Answer Comments Your discharge diagnosis is: Chest pain [[id number]] Follow up with Primary Care Provider (PCP) Our records show your Primary Care Provider (PCP) is Lisy Olmedo MD. Order Specific Question Answer Comments Follow Up Instructions: follow up with PCP in 1 wk. And cardiology as scheduled. Activity instructions May return to work on Sunday09/10/18 Evans Almeida MD Total discharge more than 30 min including exam patient, review documentation, discussion with consultants, pt/family CC: Lisy Olmedo MD RETTE PACKER documented in this encounter Medications at Time of Discharge Medication Sig Dispensed Refills Start Date End Date amLODIPine (NORVASC) 5 MG tablet Take 1 tablet by mouth once daily 30 tablet 09/06/2018 11/05/2018 Aspirin 81 MG Take 1 (one) tablet by mouth once daily 01/23/2024 atorvastatin (LIPITOR) 80 MG tabletIndications:Coron susan artery disease involving coronary bypass graft of mi'kmaq heart with unstable angina pectoris (HCC),Hypertension, unspecified type,S/P CABG x 3 Take 1 tablet by mouth at bedtime 30 tablet 3 08/02/2018 01/16/2019 Blood Glucose Monitoring Suppl (ONE TOUCH ULTRA MINI) W/DEVICE KIT Check blood sugars twice daily 1 kit 03/19/2018 02/15/2024 blood glucose test strip Use 1 strip 2 times daily 100 strip 11 03/19/2018 02/15/2024 furosemide (LASIX) 40 MG tablet Take 40 mg by mouth once daily 01/16/2019 GLIPIZIDE XL 5 MG tablet TAKE 1 TABLET BY MOUTH ONCE DAILY 90 tablet 09/04/2018 01/23/2019 losartan (COZAAR) 50 MG tablet Take 50 mg by mouth once daily 01/16/2019 metFORMIN (GLUCOPHAGE) 1000 MG tablet Take 1 tablet by mouth 2 times daily with morning and evening meal 180 tablet 07/26/2018 04/12/2019 metoprolol tartrate (LOPRESSOR) 50 MG tablet Take 1 tablet by mouth 2 times daily 60 tablet 6 08/02/2018 01/16/2019 nitroGLYCERIN (NITROSTAT) 0.4 MG tablet Dissolve 0.4 mg under the tongue 11/07/2017 09/18/2018 One Touch Delica Lancets Use 2 times daily Check blood sugars twice daily. 100 Each 11 03/19/2018 02/15/2024 sildenafil (REVATIO) 20 MG tablet Take 40-100 mg by mouth 5 times daily as needed 03/09/2017 12/09/2018 documented as of this encounter Progress Notes * Rosalee Pope RN - 09/06/2018 6:03 PM CST Discharge Summary: Pt A & O x4. SR on the monitor. VSS. Pt had Echo and Stress test today. Troponin drawn. Discharge pending results of echo and stress. Pt OK to discharge per MDs. Paperwork discussed with pt and family, all questions answered. IV and Tele d/c, hub notified. Pt to be discharged to home with family as transportation. Rosalee Pope RN 09/06/2018 6:03 PM RETTE PACKER * Bre Sandhu RN - 09/06/2018 1:49 PM CST A Chart Review has been conducted by Case Management. Based on current condition, will patient be able to return to prior living situation? yes Anticipated Discharge Date: 09/06/18 Anticipated discharge needs: none Barriers to discharge / additional discharge needs: none Additional comments: Pt admitted with chest pain/. Home at discharge. Transportation (who): Transplant Worker/Support: Transplant Worker person: Home/Functional Status: Assistive Devices: None ?. Will continue to follow. For any questions or needs please contact: Medical Housekeeper Name/Phone number: )Bre Sandhu RN RETTE PACKER * Evans Almeida MD - 09/06/2018 10:00 AM CST Hospitalist Progress Note Admit Date: 09/04/2018 9:04 AM Hospital Day: 2 Clinical Course CC: chest pain Pt states the chest pain getting better. No other complains. Data Vitals: 09/05/18 1922 09/05/18 2318 09/06/18 0340 09/06/18 0808 BP: 156/68 161/96 158/90 (!) 145/106 Pulse: 74 71 70 65 Resp: 20 18 Temp: 98.4 ??F (36.9 ??C) 98.7 ??F (37.1 ??C) 98.4 ??F (36.9 ??C) 98.5 ??F (36.9 ??C) SpO2: 96% 94% 95% 95% Weight: Height: Temp (30hrs) Max:98.7 ??F (37.1 ??C) My review of labs, imaging, notes and other tests is significant for Recent Labs Component Name 09/06/1831709/04/18 0923 01/29/18 0620 WBC 5.3 5.3 7.3 HGB 13.3 13.2 8.8* HCT 40.5 40.3 27.7* PLTCOUNT 250 224 - Recent Labs Component Name 09/06/1831709/04/18 0956 03/22/18 1147 SODIUM 135* 135* 141 POTASSIUM 3.5 4.1 4.2 CHLORIDE 100 102 102 CO2 28 28 25 BUN 14 9 16 CREATININE 0.97 0.88 0.90 GLUCOSE 141* 126* 52* CALCIUM 8.5 8.4* 9.2 Current mediation: SCHEDULED MEDICATIONS: 0.9% NaCl injection 1-10 mL, Intracatheter, intra-Procedure once 0.9% NaCl injection 3 mL, Intracatheter, q8h amLODIPine (NORVASC) tablet 5 mg, Oral, QDAY aspirin (ASPIRIN) chew tablet 81 mg, Oral, QDAY atorvastatin (LIPITOR) tablet 80 mg, Oral, AT BEDTIME furosemide (LASIX) tablet 40 mg, Oral, QDAY heparin injection 5,000 Units, Subcutaneous, BID insulin aspart (NovoLOG) pen 0-6 Units, Subcutaneous, TID WC losartan (COZAAR) tablet 100 mg, Oral, QDAY metoprolol tartrate (LOPRESSOR) tablet 100 mg, Oral, BID 0900 and 1500 regadenoson (LEXISCAN) injection 0.4 mg, Intravenous, intra-Procedure once [] 0.9% NaCl injection 1-10 mL, Intracatheter, intra-Procedure multiple ?? [] regadenoson (LEXISCAN) injection 0.4 mg, Intravenous, Cardiology Once ?? CONTINUOUS MEDICATIONS: PRN MEDICATIONS: 0.9% NaCl injection 1-10 mL, Intracatheter, PRN dextrose IV 12.5-25 g, Intravenous, PRN glucagon (GLUCAGEN) injection 1 mg, Intramuscular, PRN glucose (Diabetic Use) oral gel, Oral, PRN hydrALAZINE (APRESOLINE) injection 10 mg, Intravenous, q4h PRN ?? nitroGLYCERIN (NITROSTAT) tablet 0.4 mg, Sublingual, q5 min PRN Exam General appearance: alert, cooperative, no distress Heart: regular rhythm, normal S1 and S2, without murmurs, rubs or gallops Lungs: breath sounds normal and symmetric; no rales or wheezes Abdomen: soft without mass, non-tender, with normal bowel sounds Extremities: no clubbing, cyanosis or edema CHILDREN'S PROGRAM COORDINATOR: Alert and oriented x 3. Cranial nerves 2-12 grossly normal. Power tone all 4 extremeties normal Assessment and Plan Chest pain, ?NSTEMI, history of CABG Trop peak at 0.097. ECG Rhythm: normal sinus bradycardia, normal ST. CXR negative. Stress and echo result pending. Cardiology on case. HTN Home meds lasartan, BB, lasix. Others: DM:ISS and accucheck. HLD:home med. DVT PPx:heparin Suq. D/c plan:today if echo and stress negative. Care coordination I talked with pt about the findings and plans. RETTE PACKER * Mirna Llanos RDCS - 09/06/2018 9:54 AM CST Echocardiogram completed today. RETTE PACKER * Rosalee Pope RN - 09/06/2018 9:45 AM CST Problem: Hemodynamic Status/Cardiac Output Goal: Patient has stable vital signs and fluid balance Outcome: Ongoing Pt will maintain stable vitals from now through discharge. Problem: Pain/Discomfort Goal: Patient exhibits reduced pain/discomfort as evidenced by pain scores Outcome: Ongoing Pt will report reduced or controlled levels of pain from now through discharge. RETTE PACKER * Sumi Garcia MD - 09/06/2018 8:33 AM CST Cardiology Progress Note Admit Date: 09/04/2018 Hospital Day: Hospital Day: 2 Symptoms Patient denies chest pain or shortness of breath. Tele: Vital signs Vitals: 09/05/18 1922 09/05/18 2318 09/06/18 0340 09/06/18 0808 BP: 156/68 161/96 158/90 (!) 145/106 Pulse: 74 71 70 65 Resp: Temp: 98.4 ??F (36.9 ??C) 98.7 ??F (37.1 ??C) 98.4 ??F (36.9 ??C) 98.5 ??F (36.9 ??C) SpO2: 96% 94% 95% 95% Weight: Height: Intake/Output Summary (Last 24 hours) at 09/06/18 0833 Last data filed at 09/05/18 1656 Gross per 24 hour Intake: 840 ml Output: 0 ml Net : 840 ml Exam Lungs: Clear to auscultation and percussion Heart: S1 and S2 normal. No murmur. No gallop or rub Abdomen: Soft, nontender, bowel sounds active. Extremities: No edema SCHEDULED MEDICATIONS: 0.9% NaCl injection 1-10 mL, Intracatheter, intra-Procedure once 0.9% NaCl injection 3 mL, Intracatheter, q8h aspirin (ASPIRIN) chew tablet 81 mg, Oral, QDAY atorvastatin (LIPITOR) tablet 80 mg, Oral, AT BEDTIME furosemide (LASIX) tablet 40 mg, Oral, QDAY heparin injection 5,000 Units, Subcutaneous, BID insulin aspart (NovoLOG) pen 0-6 Units, Subcutaneous, TID WC losartan (COZAAR) tablet 100 mg, Oral, QDAY metoprolol tartrate (LOPRESSOR) tablet 50 mg, Oral, BID 0900 and 1500 regadenoson (LEXISCAN) injection 0.4 mg, Intravenous, intra-Procedure once [] 0.9% NaCl injection 1-10 mL, Intracatheter, intra-Procedure multiple ?? [] regadenoson (LEXISCAN) injection 0.4 mg, Intravenous, Cardiology Once ?? CONTINUOUS MEDICATIONS: PRN MEDICATIONS: 0.9% NaCl injection 1-10 mL, Intracatheter, PRN dextrose IV 12.5-25 g, Intravenous, PRN glucagon (GLUCAGEN) injection 1 mg, Intramuscular, PRN glucose (Diabetic Use) oral gel, Oral, PRN hydrALAZINE (APRESOLINE) injection 10 mg, Intravenous, q4h PRN ?? nitroGLYCERIN (NITROSTAT) tablet 0.4 mg, Sublingual, q5 min PRN Labs Recent Labs Component Name 09/06/1831709/04/18 0956 03/22/18 1147 SODIUM 135* 135* 141 POTASSIUM 3.5 4.1 4.2 CHLORIDE 100 102 102 CO2 28 28 25 BUN 14 9 16 CREATININE 0.97 0.88 0.90 GLUCOSE 141* 126* 52* Recent Labs Component Name 01/25/18 0026 01/24/18 1540 01/24/18 1345 PT 14.2 14.7 17.4* INR 1.1 1.2 1.4 Recent Labs Component Name 09/06/188 09/04/18 0923 01/29/18 0620 WBC 5.3 5.3 7.3 HGB 13.3 13.2 8.8* HCT 40.5 40.3 27.7* PLTCOUNT 250 224 - Cardiographics ECG: Sinus rhythm with T wave inversions along the inferior / inferolateral leads. ? Echocardiogram 01/25/18: There is mild concentric left ventricular hypertrophy. The LV cavity size is normal. Left ventricular systolic function is normal without wall motion abnormalities. EF is 55%. Dilated aortic root? 4.1 cm at the sinus of Valsalva. Proximal ascending aorta is 3.4 cm. ?? Cardiac Cath 11/16/17: Severe multivessel coronary artery disease ?-- proximal segment LAD ?-- middle segment LCx ?-- middle segment RCA ?? Assessment: ?? Chest pain, atypical. EKG and troponin unremarkable. ?? CAD s/p CABG x3 (VALENZUELA to LAD, Radial to OM, SVG to PDA) on 01/24 ?? Hypertension ?? Hyperlipidemia ?? Diabetes mellitus type II ?? Plan: ?? Continue to trend troponin until first declining result. ?? Increased metoprolol to 100 mg po BID. ?? Echocardiogram pending. ?? Nuclear stress pending. ?? I appreciate the opportunity to participate in the care of this very pleasant patient. We will continue to follow with you. Sumi Garcia MD, [facility] 09/06/2018 RETTE PACKER * Rosalie Olson RN - 09/06/2018 6:37 AM CST Shift Summary: Pt A/Ox4 SR on tele NPO since 0000 No complaint of sob or pain Pt aware of plan for tomorrow Call light in reach, bed in lowest position Will continue to monitor RETTE PACKER * Rosalee Pope RN - 09/05/2018 6:15 PM CST Assumed care of pt from ZACHARY Valverde @ 1700. Pt A & O x4. SR on the monitor. VSS. Pt given PRN hydralazine x1 for elevated BP. Pt to be NPO after midnight for stress test in AM. Pt resting comfortably with call light in reach. Rosalee Pope RN 09/05/2018 6:15 PM RETTE PACKER * Nicolle Brunson RN - 09/05/2018 4:58 PM CST Shift Summary: A&O x 4, SR per telemetry. Denies CP or shortness of breath. Instructed to be NPO after MN for Stress test in AM. Report to be transferred to on coming shift for continuation of care. Nicolle Brunson RN 09/05/2018 5:02 PM RETTE PACKER * Nicolle Brunson RN - 09/05/2018 10:00 AM CST Problem: Hemodynamic Status/Cardiac Output Goal: Patient has stable vital signs and fluid balance Outcome: Variance - See Flowsheet Documentation Problem: Pain/Discomfort Goal: Patient uses pharmacological and non-pharmacological pain management strategies. Outcome: Ongoing Mr. Solorio was encouraged to use non pharmacological pain intervention prior using pain meds. RETTE PACKER * Evans Almeida MD - 09/05/2018 10:00 AM CST Hospitalist Progress Note Admit Date: 09/04/2018 9:04 AM Hospital Day: 1 Clinical Course CC: chest pain Pt states the chest pain getting better. No other complains. Data Vitals: 09/05/18 0333 09/05/18 0345 09/05/18 0740 09/05/18 1154 BP: (!) 175/115 146/93 158/93 (!) 160/108 Pulse: 67 64 61 Resp: 18 18 20 Temp: 98.3 ??F (36.8 ??C) 98.1 ??F (36.7 ??C) 98.3 ??F (36.8 ??C) SpO2: 97% 96% 97% Weight: Height: Temp (30hrs) Max:98.4 ??F (36.9 ??C) My review of labs, imaging, notes and other tests is significant for Recent Labs Component Name 09/04/18 0923 01/29/18 0620 01/28/18 0917 WBC 5.3 7.3 17.4* HGB 13.2 8.8* 8.7* HCT 40.3 27.7* 28.5* PLTCOUNT 224 - - Recent Labs Component Name 09/04/18 0956 03/22/18 1147 01/29/18 0620 SODIUM 135* 141 - POTASSIUM 4.1 4.2 3.9 CHLORIDE 102 102 - CO2 28 25 26 BUN 9 16 12 CREATININE 0.88 0.90 1.0 GLUCOSE 126* 52* - CALCIUM 8.4* 9.2 9.1 Current mediation: ?? SCHEDULED MEDICATIONS: ?? 0.9% NaCl injection 1-10 mL, Intracatheter, intra-Procedure multiple ?? 0.9% NaCl injection 3 mL, Intracatheter, q8h ?? aspirin (ASPIRIN) chew tablet 81 mg, Oral, QDAY ?? atorvastatin (LIPITOR) tablet 80 mg, Oral, AT BEDTIME ?? furosemide (LASIX) tablet 40 mg, Oral, QDAY ?? heparin injection 5,000 Units, Subcutaneous, BID ?? insulin aspart (NovoLOG) pen 0-6 Units, Subcutaneous, TID WC ?? losartan (COZAAR) tablet 100 mg, Oral, QDAY ?? metoprolol tartrate (LOPRESSOR) tablet 50 mg, Oral, BID 0900 and 1500 ?? regadenoson (LEXISCAN) injection 0.4 mg, Intravenous, Cardiology Once ?? [COMPLETED] aspirin (ASPIRIN) chew tablet 324 mg, Oral, Now ?? [COMPLETED] metoprolol tartrate (LOPRESSOR) tablet 50 mg, Oral, Now ?? CONTINUOUS MEDICATIONS: ?? PRN MEDICATIONS: ?? 0.9% NaCl injection 1-10 mL, Intracatheter, PRN ?? dextrose IV 12.5-25 g, Intravenous, PRN ?? glucagon (GLUCAGEN) injection 1 mg, Intramuscular, PRN ?? glucose (Diabetic Use) oral gel, Oral, PRN ?? hydrALAZINE (APRESOLINE) injection 10 mg, Intravenous, q4h PRN ?? nitroGLYCERIN (NITROSTAT) tablet 0.4 mg, Sublingual, q5 min PRN Exam General appearance: alert, cooperative, no distress Heart: regular rhythm, normal S1 and S2, without murmurs, rubs or gallops Lungs: breath sounds normal and symmetric; no rales or wheezes Abdomen: soft without mass, non-tender, with normal bowel sounds Extremities: no clubbing, cyanosis or edema CHILDREN'S PROGRAM COORDINATOR: Alert and oriented x 3. Cranial nerves 2-12 grossly normal. Power tone all 4 extremeties normal Assessment and Plan Chest pain, ?NSTEMI, history of CABG Trop peak at 0.097. ECG Rhythm: normal sinus bradycardia, normal ST. CXR negative. Stress and echo pending. Cardiology on case. HTN Home meds lasartan, BB, lasix. Others: DM:ISS and accucheck. HLD:home med. DVT PPx:heparin Suq. D/c plan:pending. Care coordination I talked with pt about the findings and plans. RETTE PACKER * Sumi Garcia MD - 09/05/2018 8:18 AM CST Cardiology Progress Note Admit Date: 09/04/2018 Hospital Day: Hospital Day: 1 Symptoms Patient denies chest pain or shortness of breath. Tele: SR Vital signs Vitals: 09/04/18 2348 09/05/18 0333 09/05/18 0345 09/05/18 0740 BP: 158/99 (!) 175/115 146/93 158/93 Pulse: 66 67 64 Resp: Temp: 98.4 ??F (36.9 ??C) 98.3 ??F (36.8 ??C) 98.1 ??F (36.7 ??C) SpO2: 98% 97% 96% Weight: Height: Intake/Output Summary (Last 24 hours) at 09/05/18 0818 Last data filed at 09/04/18 1834 Gross per 24 hour Intake 360 ml Output 0 ml Net 360 ml Exam Lungs: Clear to auscultation and percussion Heart: S1 and S2 normal. No murmur. No gallop or rub Abdomen: Soft, nontender, bowel sounds active. Extremities: No edema ?? SCHEDULED MEDICATIONS: ?? 0.9% NaCl injection 1-10 mL, Intracatheter, intra-Procedure multiple ?? 0.9% NaCl injection 3 mL, Intracatheter, q8h ?? aspirin (ASPIRIN) chew tablet 81 mg, Oral, QDAY ?? atorvastatin (LIPITOR) tablet 80 mg, Oral, AT BEDTIME ?? furosemide (LASIX) tablet 40 mg, Oral, QDAY ?? heparin injection 5,000 Units, Subcutaneous, BID ?? insulin aspart (NovoLOG) pen 0-6 Units, Subcutaneous, TID WC ?? losartan (COZAAR) tablet 50 mg, Oral, QDAY ?? metoprolol tartrate (LOPRESSOR) tablet 50 mg, Oral, BID 0900 and 1500 ?? regadenoson (LEXISCAN) injection 0.4 mg, Intravenous, Cardiology Once ?? [COMPLETED] aspirin (ASPIRIN) chew tablet 324 mg, Oral, Now ?? [COMPLETED] metoprolol tartrate (LOPRESSOR) tablet 50 mg, Oral, Now ?? CONTINUOUS MEDICATIONS: ?? PRN MEDICATIONS: ?? 0.9% NaCl injection 1-10 mL, Intracatheter, PRN ?? dextrose IV 12.5-25 g, Intravenous, PRN ?? glucagon (GLUCAGEN) injection 1 mg, Intramuscular, PRN ?? glucose (Diabetic Use) oral gel, Oral, PRN ?? hydrALAZINE (APRESOLINE) injection 10 mg, Intravenous, q4h PRN ?? nitroGLYCERIN (NITROSTAT) tablet 0.4 mg, Sublingual, q5 min PRN Labs Recent Labs Component Name 09/04/18 0956 03/22/18 1147 01/29/18 0620 SODIUM 135* 141 - POTASSIUM 4.1 4.2 3.9 CHLORIDE 102 102 - CO2 28 25 26 BUN 9 16 12 CREATININE 0.88 0.90 1.0 GLUCOSE 126* 52* - Recent Labs Component Name 01/25/18 0026 01/24/18 1540 01/24/18 1345 PT 14.2 14.7 17.4* INR 1.1 1.2 1.4 Recent Labs Component Name 09/04/18 0923 01/29/18 0620 01/28/18 0917 WBC 5.3 7.3 17.4* HGB 13.2 8.8* 8.7* HCT 40.3 27.7* 28.5* PLTCOUNT 224 - - Cardiographics ECG: Sinus rhythm with T wave inversions along the inferior / inferolateral leads. ? Echocardiogram 01/25/18: There is mild concentric left ventricular hypertrophy. The LV cavity size is normal. Left ventricular systolic function is normal without wall motion abnormalities. EF is 55%. Dilated aortic root? 4.1 cm at the sinus of Valsalva. Proximal ascending aorta is 3.4 cm. ?? Cardiac Cath 11/16/17: Severe multivessel coronary artery disease ?-- proximal segment LAD ?-- middle segment LCx ?-- middle segment RCA ?? Assessment: ?? Chest pain, atypical. EKG and troponin unremarkable. ?? CAD s/p CABG x3 (VALENZUELA to LAD, Radial to OM, SVG to PDA) on 01/24 ?? Hypertension ?? Hyperlipidemia ?? Diabetes mellitus type II ?? Plan: ?? Continue to trend troponin until first declining result. ?? Increased losartan to 100 mg po qdaily. ?? Echocardiogram pending. ?? Nuclear stress pending. ?? I appreciate the opportunity to participate in the care of this very pleasant patient. We will continue to follow with you. Sumi Garcia MD, [facility] [facility] 09/05/2018 RETTE PACKER * Carmella Recinos RN - 09/05/2018 7:10 AM CST Shift Summary: Patient A&Ox4, no complaints, no signs of acute distress noted, resting in bed, call light within reach. RETTE PACKER * Andreia Mccarty RN - 09/04/2018 6:41 PM CST Shift summary: Patient is AOx4, on room air. Vitals as charted. Up ad angelica. SR on the tele monitor with occasional PVCs. Reported intermittent, mild chest discomfort; meds given (See MAR) and physicians notified. Fall, Sternal, and MONTY precautions initiated. NO acute distress noted at this time. Patient is resting quietly with call light, personal belongings in reach. It was a pleasure caring for this patient today. Andreia Mccarty RN 09/04/2018 6:42 PM RETTE PACKER * Andreia Mccarty RN - 09/04/2018 1:32 PM CST Transport requested. RETTE PACKER * Andreia Mccarty RN - 09/04/2018 1:21 PM CST Called for report. Requesting troponin to be drawn in ED RETTE PACKER documented in this encounter H&P Notes * Silvia Kidd APRN-CNP - 09/04/2018 3:08 PM CST [facility] Hospitalist H and P Patient Yaya Solorio Date of admit 09/04/2018 Date 09/04/2018 Lisy Olmedo MD Chief Complaint Patient presents with ??? Chest Pain pt states chest pain last night relieved by nitro then again this am chest pain relieved by nitro. .HPI: Patient is a 57 y.o. male with the past medical history of CAD s/p CABG, HTN, HLD, obesity and type 2 Dm admitted with the complaints of mid sternal chest pressure pain which radiated to the left arm. Pt says that he was making some ice cream at that time when he felt the pain at around 8:30 am. He had associated symptom of diaphoresis. Pt says that he had the surgery in January and neverhad any problems since then. Pt's sisters at the bedside says that pt never follow his diet or do exercise. He agrees with that. The patient has taken the nitroglycerine and the pain got resolved. Hedenies any fever,chills, headache, abdominal pain nausea and vomiting. No alleviating or aggravating factors noticed. ECG Interpretation Date/Time: 09/04/2018 9:01 AM Interpreted by ED provider Rhythm: sinus rhythm Rate: bradycardic BPM: 69 ST Segments: ST segments normal T inversion: II, III, aVF and V6 ? ECG Rhythm Interpretation Past Medical History: Diagnosis Date ??? CAD (coronary artery disease) ??? DM (diabetes mellitus) ??? HTN (hypertension) ??? Superficial postoperative wound infection 02/23/2018 sternum ??? Wound of sternal region 02/23/2018 Past Surgical History: Procedure Laterality Date ??? Coronary Artery Bypass Graft N/A 01/24/2018 N/A; Coronary artery bypass graft x 3 ??? Tonsillectomy Prescriptions Prior to Admission Medication Sig Dispense Refill ??? GLIPIZIDE XL 5 MG tablet TAKE 1 TABLET BY MOUTH ONCE DAILY 90 tablet 0 ??? metoprolol tartrate (LOPRESSOR) 50 MG tablet Take 1 tablet by mouth 2 times daily 60 tablet 6 ??? atorvastatin (LIPITOR) 80 MG tablet Take 1 tablet by mouth at bedtime 30 tablet 3 ??? metFORMIN (GLUCOPHAGE) 1000 MG tablet Take 1 tablet by mouth 2 times daily with morning and evening meal 180 tablet 0 ??? Blood Glucose Monitoring Suppl (ONE TOUCH ULTRA MINI) W/DEVICE KIT Check blood sugars twice daily 1 kit 0 ??? blood glucose test strip Use 1 strip 2 times daily 100 strip 11 ??? One Touch Delica Lancets Use 2 times daily Check blood sugars twice daily. 100 Each 11 ??? losartan (COZAAR) 50 MG tablet Take 50 mg by mouth once daily ??? furosemide (LASIX) 40 MG tablet Take 40 mg by mouth once daily ??? Potassium Chloride (KLOR-CON PO) Take 20 mEq by mouth once daily ??? NEOSPORIN ORIGINAL ( NEOSPORIN) 3.5-400-5000 topical onitment Apply to affected area 3 times daily 14.2 g 1 ??? calcium carbonate - vitamin D (CALTRATE + D) 600-800 MG-UNIT tablet Take 1 tablet by mouth ??? nitroGLYCERIN (NITROSTAT) 0.4 MG tablet Dissolve 0.4 mg under the tongue ??? Aspirin 81 MG Take 81 mg by mouth once daily ??? sildenafil (REVATIO) 20 MG tablet Take 40-100 mg by mouth 5 times daily as needed Allergies Allergen Reactions ??? Lisinopril Angioedema ??? Pcn [Penicillins] Swelling eyes swelled shut 50 years ago ??? Penicillin V Rash Social History Substance Use Topics ??? Smoking status: Former Smoker Types: Cigars ??? Smokeless tobacco: Never Used Comment: 3-4 times / month ??? Alcohol use 4.2 - 8.4 oz/week 7 - 14 Standard drinks or equivalent per week Family History Problem Relation Age of Onset ??? Hypertension Father Reviewed, findings are not pertinent to current admission Review of Systems 14 point review of system negative except mentioned in HPI Objective: Patient Vitals for the past 8 hrs: BP Temp Pulse Resp SpO2 Height Weight 09/04/18 1640 (!) 172/110 98.3 ??F (36.8 ??C) 64 18 98 % - - 09/04/18 1603 - - - - - 1.93 m (6' 3.98 ) (!) 149.7 kg (330 lb) 09/04/18 1216 160/95 - 78 16 95 % - - 09/04/18 1200 (!) 172/118 - 66 20 97 % - - 09/04/18 1130 (!) 176/151 - 72 21 96 % - - 09/04/18 1100 (!) 176/111 - 67 21 97 % - - 09/04/18 1030 (!) 187/114 - 71 27 98 % - - 09/04/18 1000 (!) 175/116 - 69 21 96 % - - Exam General: alert, in no distress, cooperative Heent: Lovely, neck supple, nasa/oral mucosa intact, no nodule/lymph node felt Cardiovascular: bradycardic , regular rhythm, no murmurs detected, regular rate and rhythm without murmurs and normal S1 and S2 Pulmonary/chest: clear to auscultation, no wheezes or rales, normal breathing effort Abdomen: Soft, Non-Tender, Not distended, Normal BS and No Pulsatile Masses Skin: No acute rash, edema, no open wound Muscle skeletal: grossly normal, MAEW Neurologic: neither normal motor function nor cranial nerves II-XII are grossly intact.oriented x 4 Data Review Recent Labs Component Name 09/04/18 0956 SODIUM 135* POTASSIUM 4.1 CHLORIDE 102 CO2 28 BUN 9 CREATININE 0.88 GLUCOSE 126* CALCIUM 8.4* ALBUMIN 3.3* ALKPHOS 76 ALT 18 AST 17 TBIL 0.4 TPROT 8.1 EGFR >60 Recent Labs Component Name 09/04/18 0923 01/29/18 0620 01/28/18 0917 WBC 5.3 7.3 17.4* HGB 13.2 8.8* 8.7* HCT 40.3 27.7* 28.5* PLTCOUNT 224 - - No results for input(s): BNP in the last 01621 hours. No results for input(s): TROPONIN in the last 83591 hours. No results for input(s): TSH in the last 45862 hours. Recent Labs Component Name 01/28/18 2135 01/11/18 1548 UROBILINUA <2.0 <2.0 RBCUA - 2 Imaging: Old records were reviewed CXR Findings: A single portable view of the chest shows the lungs are clear. There is cardiomegaly. Pulmonary vascularity is unremarkable. ?? IMPRESSION No acute disease. Assessment and Plan: NSTEMI R/o unstable angina -Troponin (x2) <0.049, 0.097, pending the 3rd trop -ECG Rhythm: normal sinus bradycardia -CXR shows no acute disease -Continue telemetry monitoring. -continue home ASA -pending cardiology consult -Continue aspirin, ARB, BB, and statin -Hold BB if HR below 60 -Pending stress test in am -Elevated trop:pending serial trop HTN: -uncontrolled, continue home dose losartan,and Metoprolol -Started on Iv hydralazine as needed for BP above 170/110 Diabetes mellitus - POA -Controlled/uncontrolled with oral agents/insulin. -Hold oral agents for now. -Sliding scale insulin. -Check hemoglobin A1c. Recent Labs Component Name 01/11/18 1548 10/19/17 HGBA1C 6.4* 5.8 -Hyperlipidemia: continue home dose statin -Morbid obesity: BMI 40.19 Advised diet and life style modification DVT Prophylaxis: SCD and heparin SQ Code Status and Advanced Directives: Full has an advanced directive - a copy HAS NOT been provided. Code status discussed The patient is admitted with a diagnosis or diagnoses of NSTEMI and current medical needs include Tele monitoring and serial trops . The patient has the following complex medical factors: HTN,HLD Silvia Kidd APRN-AZEB Cc Lisy Olmedo MD RETTE PACKER documented in this encounter Consult Notes * Sumi Garcia MD - 09/04/2018 2:38 PM CSTAssociated Order(s): IP CONSULT TO CARDIOLOGY Cardiology Consultation Note Reason for Consultation: Chest pain. History of Present Illness: The patient is a very pleasant 57 y.o. male with a history of CAD s/p CABG x3 (VALENZUELA to LAD, Radial to OM, SVG to PDA) on 01/24, hypertension, hyperlipidemia, and diabetes mellitus type II who [facility] with complaints of chest pain. Chest discomfort started yesterday evening after eating a cup of ice cream. It was followed by some nausea and vomiting and persisted throughout the night. It subsided when he woke up this morning but re-occurred again at work prompting him to come to the ER. In the ER, he had an EKG that did not show ST elevations. Chest x-ray was remarkable. Troponin was negative. Given history and chest discomfort, cardiology was consulted for further evaluation. Old records reviewed. Readmission Risk Score: If there is no COFFEE URN ATTENDANT Total Score indicated, this patient has yet to be assessed for Readmission Risk or the BNA Score was < 10. If the patient has been assessed, the score is: Past Medical History: Diagnosis Date ??? CAD (coronary artery disease) ??? DM (diabetes mellitus) ??? HTN (hypertension) ??? Superficial postoperative wound infection 02/23/2018 sternum ??? Wound of sternal region 02/23/2018 Past Surgical History: Procedure Laterality Date ??? Coronary Artery Bypass Graft N/A 01/24/2018 N/A; Coronary artery bypass graft x 3 ??? Tonsillectomy (Not in a hospital admission) Allergies Allergen Reactions ??? Lisinopril Angioedema ??? Pcn [Penicillins] Swelling eyes swelled shut 50 years ago ??? Penicillin V Rash Social History: Social History Substance Use Topics ??? Smoking status: Former Smoker Types: Cigars ??? Smokeless tobacco: Never Used Comment: 3-4 times / month ??? Alcohol use 4.2 - 8.4 oz/week 7 - 14 Standard drinks or equivalent per week Family History: No family history on file. Review of Symptoms: Constitutional: Negative for fever, chills, malaise/fatigue and diaphoresis. Psychiatric: Negative for depression and anxiety. Skin: Negative for rash and itching. HENT: Negative for headaches, lightheadedness, and congestion. Negative for vertigo. Eyes: Negative for blurred vision and itching. Cardiovascular: As above. Respiratory: Negative for cough and sputum production. Positive for shortness of breath. Gastrointestinal: Positive for nausea and vomiting. Negative for abdominal pain and diarrhea. Musculoskeletal: Negative for muscle weakness, extremity redness or swelling. Neurological: Negative for dizziness, focal weakness, tremors and loss of consciousness. Physical Exam: BP 160/95 Pulse 78 Temp 98.2 ??F (36.8 ??C) Resp 16 Ht 1.93 m (6' 4 ) Wt 149.7 kg (330 lb) SpO2 95%BMI 40.17 kg/m2 General: Well developed, well nourished, in no acute distress, oriented to person, place, and time Skin: Warm and dry, no jaundice Head: Normocephalic, oral mucosa and conjunctivae normal Eyes: Pupils equal, no xanthelasma Neck: No thyromegaly or bruits. Carotid pulses 2+ Lungs: Clear to auscultation and percussion. Respirations unlabored Cardiac: Mid sternotomy scar well healed. PMI normal. JVP normal. S1 normal, S2 normal, no murmur, no gallop or rub Abd: Soft, nontender, BS active Extremities: No clubbing, cyanosis. Trace bilateral edema. Left radial pulse 2+ Musculoskeletal: Deferred. Neurologic: Moves extremities equally. Extraocular muscles intact. Mood not depressed Cardiographics: ECG: Sinus rhythm with T wave inversions along the inferior / inferolateral leads. Echocardiogram 01/25/18: There is mild concentric left ventricular hypertrophy. The LV cavity size is normal. Left ventricular systolic function is normal without wall motion abnormalities. EF is 55%. Dilated aortic root? 4.1 cm at the sinus of Valsalva. Proximal ascending aorta is 3.4 cm. Cardiac Cath 11/16/17: Severe multivessel coronary artery disease -- proximal segment LAD -- middle segment LCx -- middle segment RCA My review of labs, imaging, notes and other tests is significant for Recent Labs Component Name 09/04/18 0923 01/29/18 0620 01/28/18 0917 WBC 5.3 7.3 17.4* HGB 13.2 8.8* 8.7* HCT 40.3 27.7* 28.5* PLTCOUNT 224 - - Recent Labs Component Name 09/04/18 0956 03/22/18 1147 01/29/18 0620 SODIUM 135* 141 - POTASSIUM 4.1 4.2 3.9 CHLORIDE 102 102 - CO2 28 25 26 BUN 9 16 12 CREATININE 0.88 0.90 1.0 GLUCOSE 126* 52* - CALCIUM 8.4* 9.2 9.1 Recent Labs Component Name 01/25/18 0026 01/24/18 1540 01/24/18 1345 INR 1.1 1.2 1.4 Recent Labs Component Name 03/13/18 1337 CHOL 247* TRIG 79 HDL 80 LDLCALC 149* Recent Labs Component Name 09/04/18 0956 01/11/18 1548 ALBUMIN 3.3* - ALKPHOS 76 56 ALT 18 13 AST 17 14 TBIL 0.4 - TPROT 8.1 - CXR (reviewed by me): - Unremarkable. Assessment: ?? Chest pain, atypical. EKG and troponin unremarkable. ?? CAD s/p CABG x3 (VALENZUELA to LAD, Radial to OM, SVG to PDA) on 01/24 ?? Hypertension ?? Hyperlipidemia ?? Diabetes mellitus type II Plan: ?? Admit and trend troponin. ?? Echocardiogram. ?? Nuclear stress. I appreciate the opportunity to participate in the care of this very pleasant patient. We will continue to follow with you. Sumi Garcia MD, [facility], 09/04/2018 2:38 PM RETTE PACKER documented in this encounter ED Notes * Laure Celeste, ZACHARY - 09/04/2018 11:11 AM CST Pt resting comfortably call light within reach family at bedside. RETTE PACKER * Edita Pinto MD - 09/04/2018 9:35 AM CST Provider contact with the patient: 09/04/2018 09:35 Yaya Solorio [id number] [facility] EMERGENCY DEPART[facility] History Chief Complaint Patient presents with ??? Chest Pain pt states chest pain last night relieved by nitro then again this am chest pain relieved by nitro. Chief complaint narrative was entered by triage nurse, not by physician. HPI Comments: 9:35 AM Yaya Solorio, a 57 y.o. male presents to the ER c/o chest pain. Pt reports it began around 8:30 am and felt a chest pressure that woke him up. The pt states this pressure lasted several minutes but was resolved when he took 2 NTG. The pt had SOB as well. He states he had triple bypass surgery in January [address] Dennis at [facility]. He last saw him right after surgery because he has had insurance issues. No other complaints or modifying factors at this time. PMH - DM, HTN, CAD PSH - CABG X3, Tonsillectomy Meds - Lopressor, Lipitor, Glucophage, Cozaar, Lasix, Klor-Con, NTG, Revatio, Baby Aspirin All - Lisinopril, PCN social hx tobacco - former smoker alcohol - yes drugs - no PCP - Lisy Olmedo MD Specialists - (Cardiology) Past Medical History: Diagnosis Date ??? CAD (coronary artery disease) ??? DM (diabetes mellitus) ??? HTN (hypertension) ??? Superficial postoperative wound infection 02/23/2018 sternum ??? Wound of sternal region 02/23/2018 Past Surgical History: Procedure Laterality Date ??? Coronary Artery Bypass Graft N/A 01/24/2018 N/A; Coronary artery bypass graft x 3 ??? Tonsillectomy No family history on file. Social History Social History ??? Marital status: Legally Spouse name: N/A ??? Number of children: N/A ??? Years of education: N/A Occupational History ??? Not on file. Social History Main Topics ??? Smoking status: Former Smoker Types: Cigars ??? Smokeless tobacco: Never Used Comment: 3-4 times / month ??? Alcohol use 4.2 - 8.4 oz/week 7 - 14 Standard drinks or equivalent per week ??? Drug use: No ??? Sexual activity: Not on file Other Topics Concern ??? Not on file Social History Narrative Allergies Allergen Reactions ??? Lisinopril Angioedema ??? Pcn [Penicillins] Swelling eyes swelled shut 50 years ago ??? Penicillin V Rash Review of Systems Review of Systems Constitutional: Negative for chills, fever and malaise/fatigue. HENT: Negative for sore throat. Eyes: Negative for blurred vision. Respiratory: Positive for shortness of breath. Negative for cough. Cardiovascular: Positive for chest pain. Negative for palpitations and leg swelling. Gastrointestinal: Negative for abdominal pain, constipation, diarrhea, nausea and vomiting. Genitourinary: Negative for dysuria. Musculoskeletal: Negative for myalgias. Skin: Negative for rash. Neurological: Negative for dizziness, weakness and headaches. Psychiatric/Behavioral: Negative for depression and suicidal ideas. All other systems reviewed and are negative. Physical Exam Temp 98.2 ??F (36.8 ??C) Ht 1.93 m (6' 4 ) Wt (!) 149.7 kg (330 lb) BMI 40.17 kg/m2 Physical Exam Constitutional: He is oriented to person, place, and time. He appears well- developed and well-nourished. Non-toxic appearance. No distress. HENT: Head: Normocephalic and atraumatic. Right Ear: External ear normal. Left Ear: External ear normal. Nose: Nose normal. Mouth/Throat: Oropharynx is clear and moist. No oropharyngeal exudate. Eyes: Pupils are equal, round, and reactive to light. Conjunctivae, EOM and lids are normal. Neck: Trachea normal. Neck supple. No JVD present. Cardiovascular: Normal rate, regular rhythm, normal heart sounds, intact distal pulses and normal pulses. No murmur heard. Pulmonary/Chest: Effort normal and breath sounds normal. No stridor. No respiratory distress. Chest pain not reproducible to palpation Abdominal: Soft. Normal appearance and bowel sounds are normal. There is no hepatosplenomegaly. There is no tenderness. Musculoskeletal: Normal range of motion. Neurological: He is alert and oriented to person, place, and time. He has normal strength. No cranial nerve deficit or sensory deficit. GCS15 Skin: Skin is warm, dry and intact. He is not diaphoretic. No cyanosis. Nails show no clubbing. Psychiatric: He has a normal mood and affect. His behavior is normal. Nursing note and vitals reviewed. Medications No current outpatient prescriptions on file. Procedures Procedures ECG Interpretation Date/Time: 09/04/2018 9:01 AM Interpreted by ED provider Rhythm: sinus rhythm Rate: bradycardic BPM: 69 ST Segments: ST segments normal T inversion: II, III, aVF and V6 ECG Rhythm Interpretation Lab Interpretation Oxygen Saturation Interpretation The oxygen saturation level is: 98%. The patient was on Room Air for the saturation measurement. Measurement frequency: Continuous. Oxygen saturation interpretation is Normal. Intervention(s) used: None. Hospital Encounter on 09/04/18 TROPONIN I Result Value Ref Range Troponin I 0.039 0.000 - 0.049 ng/mL TROPONIN I Result Value Ref Range Troponin I 0.049 0.000 - 0.049 ng/mL CBC W AUTO DIFFERENTIAL Result Value Ref Range WBC 5.3 4.4 - 10.7 x10E9/L WBC Corrected x10E9/L RBC 4.54 3.80 - 5.40 x10E12/L Hemoglobin 13.2 12.0 - 17.6 gm/dL Hematocrit 40.3 35.2 - 51.7 % MCV 88.8 80.7 - 98.3 fl MCH 29.1 26.7 - 34.0 pg MCHC 32.8 30.8 - 35.9 gm/dL Platelet Count 224 153 - 416 x10E9/L RDW-CV 13.4 12.1 - 14.9 % MPV 10.5 9.4 - 12.9 fl Neutrophils % 61.6 44.0 - 73.0 % Lymphocytes % 30.0 20.0 - 43.0 % Monocytes % 6.9 5.0 - 13.0 % Eosinophils % 0.9 0.0 - 6.0 % Basophils % 0.2 0.0 - 2.0 % Immature Granulocytes 0.4 0 - 1 % Neutrophil Absolute 3.29 2.01 - 7.14 x10E9/L Lymphocytes Absolute 1.60 1.07 - 3.94 x10E9/L Monocytes Absolute 0.37 0.26 - 1.07 x10E9/L Eosinophils Absolute 0.05 0 - 0.47 x10E9/L Basophils Absolute 0.01 0 - 0.08 x10E9/L Immature Granulocytes Absolute 0.02 0.00 - 0.06 x10E9/L nRBC Auto 0 /100 WBC COMPREHENSIVE METABOLIC PANEL Result Value Ref Range Glucose 126 (H) 74 - 106 mg/dL Sodium 135 (L) 136 - 145 mmol/L Potassium 4.1 3.5 - 5.1 mmol/L Chloride 102 98 - 107 mmol/L CO2 28 22 - 31 mmol/L Calcium 8.4 (L) 8.5 - 10.1 mg/dL Anion Gap 5 (L) 8 - 16 mmol/L BUN 9 7 - 21 mg/dL Creatinine 0.88 0.50 - 1.30 mg/dL Alkaline Phosphatase 76 38 - 126 U/L ALT 18 13 - 61 U/L AST 17 5 - 40 U/L Protein Total 8.1 6.4 - 8.2 gm/dL Albumin 3.3 (L) 3.4 - 5.0 gm/dL Bilirubin Total 0.4 0.2 - 1.0 mg/dL eGFR by MDRD >60 >60 mL/min/1.73m2 eGFR by MDRD >60 >60 mL/min/1.73m2 TROPONIN I Result Value Ref Range Troponin I 0.097 (HH) 0.000 - 0.049 ng/mL XR CHEST 1VW PORTABLE Final Result AP Portable Chest Indication: Chest pain Findings: A single portable view of the chest shows the lungs are clear. There is cardiomegaly. Pulmonary vascularity is unremarkable. IMPRESSION No acute disease. Reading Radiologist: Renay Ware MD on 09/04/2018 at 9:42 AM Progress Notes ED Course 11:57 AM The patient reports he is still having some slight chest pain and has not taken any blood pressure medication. I informed pt of plan for admission he is agreeable. 12:07 PM Alvaro Bruce. 12:09 PM I discussed with Radha (NORMA), for Dr. Frederick (Teo), all pertinent aspects of the case including HPI details, physical exam findings, testing completed, medications given, the pt's current condition, my clinical impression, and the need for admission for further evaluation and treatment. They agree to accept the patient at this time. We have agreed on an initial plan. A formal disposition interview was done with the patient/family to discuss the ED visit and disposition plan. The patient/family understand and agree with the plan. Interim orders written by undersigned. ED Course Medical Decision Making I have reviewed the: Previous Chart, Nursing Notes, Vitals. I have interpreted the following results: Labs, 12 Lead EKG, X-Ray, Oxygen Saturation. I have discussed the case with Admitting Physician (Rain), Cardiology (Perez), Hospitalist(Radha/Otoniel). Orders Placed This Encounter ??? XR CHEST 1VW PORTABLE ??? TROPONIN I ??? TROPONIN I ??? CBC W AUTO DIFFERENTIAL ??? COMPREHENSIVE METABOLIC PANEL ??? HEMOGLOBIN A1C ??? CARDIOLOGY CONSULT ??? IP CONSULT TO CARDIOLOGY ??? OXYGEN ??? EKG 12-LEAD ??? AND Linked Order Group ??? 0.9% NaCl injection 3 mL ??? 0.9% NaCl injection 1-10 mL ??? aspirin (ASPIRIN) chew tablet 324 mg ??? nitroGLYCERIN (NITROSTAT) tablet 0.4 mg ??? metoprolol tartrate (LOPRESSOR) tablet 50 mg ??? losartan (COZAAR) tablet 50 mg ??? glucose (Diabetic Use) oral gel ??? dextrose IV 12.5-25 g ??? glucagon (GLUCAGEN) injection 1 mg ??? insulin aspart (NovoLOG) pen 0-6 Units Clinical Impression Final diagnoses: Other chest pain Coronary artery disease involving mi'kmaq heart with angina pectoris, unspecified vessel or lesion type Disposition: Admit to Cardiac Tele Scribe Signature and Attestation By signing my name below, I, Lucita Lu, attest that this documentation has been prepared under the direction and in the presence of Dr. Edita Pinto. Electronically Signed: Sunny Mcgowan. 09/04/2018 3:14 PM Provider Signature and Attestation I, Dr.Alicia Pinto, personally performed the services described in this documentation. All medical record entries made by the scribe were at my direction and in my presence. I have reviewed the chartand agree that the record reflects my personal performance and is accurate and complete. Electronically signed: Dr. Edita Pinto. 09/04/2018 3:14 PM RETTE PACKER * Laure Celeste RN - 09/04/2018 9:28 AM CST Pt arrived to er with complaints of chest pain that started last night. Pt states pain is relieved by nitro. Denies sob however states pain is like a pressure and radiates down his left arm plan of care explained vital signs stable call light within reach will continue to monitor RETTE PACKER * Marisela Hyman RN - 09/04/2018 9:05 AM CST Bed: 4 Expected date: Expected time: Means of arrival: Comments: 4027 57M CP RETTE PACKER documented in this encounter Plan of Treatment Upcoming Encounters Date Type Department Care Team (Late st Contact Info) Description 10/20/2024 8:00 AM CIGARETTE PACKER Office Visit [facility] - Family Medicine [address] [phone] Kiana Cole MD [address] [place] [address] 11/28/2024 9:00 AM CIGARETTE PACKER Office Visit [facility] - Neurology [address] [facility] [place] [phone] Aline Finch MD [address] [facility] [place] [address] 02/10/2025 10:00 AM CDT Office Visit [facility] - Cardiology [id number] [place] [address] Curly Lay MD [id number] [place] [address] documented as of this encounter Procedures Procedure Name Priority Date/Time Associated Diagnosis Comments CARDIAC RHYTHM STRIP ORDER 09/12/2018 2:52 PM CIGARETTE PACKER CARDIAC EKG ORDER 09/11/2018 4:1 8 AM CIGARETTE PACKER GLUCOSE - POINT OF CARE Routine 09/06/20 18 2:26 PM CIGARETTE PACKER NM MYOCARD PERF REST STRESS STAT 09/06/2018 12:52 PM CIGARETTE PACKER Other chest pain STRESS TEST LEXISCAN (NUCLEAR) Routine 09/06/2018 11:47 AM CIGARETTE PACKER Other chest pain ECHOCARDIOGRAM 2D WITH DOPPLER Routine 09/06/2018 10:15 AM CIGARETTE PACKER Other chest pain GLUCOSE - POINT OF CARE Routine 09/06/20 7:55 AM CIGARETTE PACKER TROPONIN I STAT 09/06/2018 3:18 AM CIGARETTE PACKER Coronary artery disease involving coronary bypass graft of mi'kmaq heart with unstable angina pectoris (HCC) S/P CABG x 3 CBC W/O DIFFERENTIAL AM Draw 09/06/2018 3:18 AM CIGARETTE PACKER Other chest pain BASIC METABOLIC PANEL (CALCIUM TOTAL) AM Draw 09/06/2018 3:18 AM CIGARETTE PACKER Other chest pain GLUCOSE - POINT OF CARE Routine 09/05/20 18 9:41 PM CIGARETTE PACKER GLUCOSE - POINT OF CARE Routine 09/05/20 18 4:56 PM CIGARETTE PACKER GLUCOSE - POINT OF CARE Routine 09/05/20 18 11:30 AM CIGARETTE PACKER GLUCOSE - POINT OF CARE Routine 09/05/20 18 7:08 AM CIGARETTE PACKER HEMOGLOBIN A1C Routine 09/05/2018 3:42 AM CIGARETTE PACKER GLUCOSE - POINT OF CARE Routine 09/04/20 18 4:38 PM CIGARETTE PACKER TROPONIN I Timed 09/04/2018 2:01 PM CIGARETTE PACKER TROPONIN I Timed 09/04/2018 9:56 AM CIGARETTE PACKER COMPREHENSIVE METABOLIC PANEL STAT 09/04/2018 9:56 AM CIGARETTE PACKER XR CHEST 1VW PORTABLE STAT 09/04/2018 9:38 AM CIGARETTE PACKER Other chest pain TROPONIN I STAT 09/04/2018 9:23 AM CIGARETTE PACKER CBC W AUTO DIFFERENTIAL STAT 09/04/20 18 9:23 AM CIGARETTE PACKER EKG 12-LEAD STAT 09/04/2018 9:01 AM CIGARETTE PACKER Other chest pain documented in this encounter Results * CARDIAC RHYTHM STRIP ORDER (09/12/2018 2:52 PM CIGARETTE PACKER) Narrative 09/12/2018 2:52 PM CIGARETTE PACKER Ordered by an unspecified provider. Scanned Document CARDIAC SERVICES ORD ERABLES * CARDIAC EKG ORDER (09/11/2018 4:18 AM CIGARETTE PACKER) Narrative 09/11/2018 4:18 AM CIGARETTE PACKER Ordered by an unspecified provider. Scanned Document CARDIAC SERVICES ORD ERABLES * (ABNORMAL) GLUCOSE - POINT OF CARE (09/06/2018 2:26 PM CIGARETTE PACKER) [facility] Glucose WB/POC 139(H) 70 - 106 mg/dL 09/06/2018 2:30 PM CIGARETTE PACKER [facility] Blood BLOOD SPECIMEN / Unknown 09/06/2018 2:26 PM CIGARETTE PACKER 09/06/2018 2:30 PM CIGARETTE PACKER Evans Almeida MD LAB - POINT OF CARE ORDERABLES [facility] [address] [place] [address] * NM MYOCARD PERFUSION SPECT STRESS AND REST (09/06/2018 12:52 PM CIGARETTE PACKER) Anatomical Region Laterality Modality Chest Nuclear Medicine 09/06/2018 1:20 PM CIGARETTE PACKER Narrative 09/06/2018 1:22 PM CIGARETTE PACKER NM MYOCARDIAL SPECT SCAN Indications for examination: [...] on 09/06/2018 at 1:22 PM Silvia Kidd DATA SUPPORT ANALYST-PARLOR [facility] ORDERABLES * STRESS TEST LEXISCAN (NUCLEAR) (09/06/2018 11:47 AM [facility] [[email or web address]]) [facility] Stress Test Summary For full formatted report, [...] be correlated w/imaging report Diagnosis: Confirmed by PRETSON HEBERT MD ([id number]) on 09/06/2018 12:02:51 PM Attending Physician: Referred By: ? Overread By: PRESTON HEBERT MD [facility] 09/06/2018 11:4 7 AM CIGARETTE PACKER 09/06/2018 12:02 PM CIGARETTE PACKER Silvia Bernabe [facility] CARDIAC SERVICES O RDERABLES [facility] STRESS * ECHOCARDIOGRAM 2D WITH DOPPLER (09/06/2018 10:15 AM CIGARETTE PACKER) 09/06/2018 10:1 5 AM CIGARETTE PACKER Narrative [facility] CARDIAC SERVICES - 09/07/2018 9:13 AM CIGARETTE PACKER [address] [address] Transthoracic Echocardiogram 2D, M-mode, Doppler, and Color Doppler Patient: YAYA SOLORIO MR number: [id number] Height: 75 in Weight: 330 lb BSA: 2.72 m?? Study date: 06-Sep-2018 : 1960 Age: 57 years Gender: Male Race: Black Allergies: LISINOPRIL, PENICILLINS, PENICILLIN V Diagnoses: R07.89 - Other chest pain Reading Physician: ??Jose Jonas MD Referring Physician: ??Jose Jonas MD [place] PACKER: ??Mirna Llanos [facility] Cardiology Group: ??[facility] Summary: - ??History: - ??CAD - ??Left ventricle: - ??Systolic function was at the lower limits of normal. Ejection fraction was estimated to be 50 %. - ??There were no regional wall motion abnormalities. - ??Wall thickness was normal. Indications: Evaluate chest pain. History: Prior history: CAD Risk factors: hypertension. Diabetes. Procedure: The study was performed in the [facility]. This was a routine study. The [...] MV A Ramirez: 0.7 m/s MV Dec [place]: 4.6 m/s2 MV E Ramirez: 0.9 m/s MV E/A Ratio: 1.4 Septal e': 0 m/s Prepared and signed by Jose Jonas MD Signed 07-Sep-2018 09:12:59 Procedure Note Unknown, Provider, - 09/07/[address] [address] Transthoracic Echocardiogram 2D, M-mode, Doppler, and Color Doppler Patient: YAYA SOLORIO MR number: [id number] Height: 75 in Weight: 330 lb BSA: 2.72 m?? Study date: 06-Sep-2018 : 1960 Age: 57 years Gender: Male Race: Black Allergies: LISINOPRIL, PENICILLINS, PENICILLIN V Diagnoses: R07.89 - Other chest pain Reading Physician: Jose Jonas MD Referring Physician: Jose Jonas MD G[place]OTTON PACKER: Mirna Llanos [facility] Cardiology Group: [facility] Summary: - History: - CAD - Left ventricle: - Systolic function was at the lower limits of normal. Ejection fraction was estimated to be 50 %. - There were no regional wall motion abnormalities. - Wall thickness was normal. Indications: Evaluate chest pain. History: Prior history: CAD Risk factors: hypertension. Diabetes. Procedure: The study was performed in the [facility]. This was a routine study. The [...] MV A Ramirez: 0.7 m/s MV Dec [place]: 4.6 m/s2 MV E Ramirez: 0.9 m/s MV E/A Ratio: 1.4 Septal e': 0 m/s Prepared and signed by Jose Jonas MD Signed 07-Sep-2018 09:12:59 Sumi Garcia MD ECHO ORDERABLES [facility] * (ABNORMAL) GLUCOSE - POINT OF CARE (09/06/2018 7:55 AM CIGARETTE PACKER) Pathologist [facility] Glucose WB/POC 129(H) 70 - 106 mg/dL 09/06/2018 11:04 AM CIGARETTE PACKER [facility] Blood BLOOD SPECIMEN / Unknown 09/06/2018 7:55 AM CIGARETTE PACKER 09/06/2018 11:04 AM CIGARETTE PACKER Provider Unknown LAB - POINT OF CARE ORDERABLES [facility] [address] [place], [place] [id number] * (ABNORMAL) TROPONIN I (09/06/2018 3:18 AM [facility] [[email or web address]]) [facility] Troponin I 0.050(HH) 0.000 - 0.049 ng/mL 09/06/2018 2:26 PM [facility] Blood BLOOD SPECIMEN / Unknown Venipuncture / Unknown 09/06/2018 3:18 AM CIGARETTE PACKER 09/06/2018 2:08 PM [facility] - 09/06/2018 2:26 PM [facility] [[email or web address]] Note: Diagnosis of myocardial infarction requires symptoms of ischemia or EKG changes of ischemia and Troponin I >99th of normal (0.05 ng/mL). Troponin should be drawn on initial assessment and 3-6 hours later as clinically indicated. Any condition resulting in myocardial cell damage can increase cardiac troponin levels. In addition to myocardial infarction, these include but are not limited to congestive heart failure (CHF), arrhythmia, myocarditis, and non-cardiac related causes such as pulmonary embolism, renal failure and sepsis. Sumi Garcia MD LAB - CHEMISTRY CHRISTIAN RAZO [facility] Organization Address City/State/ZIP Co de Phone Number [facility] [address] [place] [address] * (ABNORMAL) BASIC METABOLIC PANEL (CALCIUM TOTAL) (09/06/2018 3:18 AM [facility] [[email or web address] Glucose 141(H) 74 - 106 mg/dL 09/06/2018 3:55 AM [facility] Sodium 135(L) 136 - 145 mmol/L 09/06/2018 3:55 AM [facility] Potassium 3.5 3.5 - 5.1 mmol/L 09/06/2018 3:55 AM [facility] Chloride 100 98 - 107 mmol/L 09/06/2018 3:55 AM [facility] CO2 28 22 - 31 mmol/L 09/06/2018 3:55 AM [facility] Calcium 8.5 8.5 - 10.1 mg/dL 09/06/2018 3:55 AM [facility] Anion Gap 7(L) 8 - 16 mmol/L 09/06/2018 3:55 AM [facility] BUN 14 7 - 21 mg/dL 09/06/2018 3:55 AM [facility] Creatinine 0.97 0.50 - 1.30 mg/dL 09/06/2018 3:55 AM [facility] eGFR by MDRD >60 >60 mL/min/1.7 3m2 09/06/2018 3:55 AM [facility] eGFR by MDRD >60 >60 mL/min/1.7 3m2 09/06/2018 3:55 AM [facility] Blood BLOOD SPECIMEN / Unknown Venipuncture / Unknown 09/06/2018 3:18 AM CIGARETTE PACKER 09/06/2018 3:26 AM CIGARETTE PACKER Evans Almeida MD LAB - CHEMISTRY CHRISTIAN RAZO [facility] Organization Address City/State/ZIP Co de Phone Number [facility] [address] [place] [address] * CBC W/O DIFFERENTIAL (09/06/2018 3:18 AM CIGARETTE PACKER) WBC 5.3 4.4 - 10.7 x10E9/L 09/06/2018 3:41 AM [facility] RBC 4.64 3.80 - 5.40 x10E12/L 09/06/2018 3:41 AM [facility] Hemoglobin 13.3 12.0 - 17.6 gm/dL 09/06/2018 3:41 AM [facility] Hematocrit 40.5 35.2 - 51.7 % 09/06/2018 3:41 AM [facility] MCV 87.3 80.7 - 98.3 fl 09/06/2018 3:41 AM [facility] MCH 28.7 26.7 - 34.0 pg 09/06/2018 3:41 AM [facility] MCHC 32.8 30.8 - 35.9 gm/dL 09/06/2018 3:41 AM [facility] Platelet Count 250 153 - 416 x10E9/L 09/06/2018 3:41 AM [facility] RDW-CV 13.7 12.1 - 14.9 % 09/06/2018 3:41 AM [facility] MPV 9.6 9.4 - 12.9 fl 09/06/2018 3:41 AM [facility] Blood BLOOD SPECIMEN / Unknown Venipuncture / Unknown 09/06/2018 3:18 AM CIGARETTE PACKER 09/06/2018 3:26 AM CIGARETTE PACKER Evans Almeida MD LAB - HEMATOLOGY ORD ERABLES Performing Organization Address [facility] Co de Phone Number [facility] [id number] [place] [phone] * (ABNORMAL) GLUCOSE - POINT OF CARE (09/05/2018 9:41 PM CIGARETTE PACKER) Glucose WB/POC 163(H) 70 - 106 mg/dL 09/05/2018 9:46 PM CIGARETTE PACKER [facility] Blood BLOOD SPECIMEN / Unknown 09/05/2018 9:41 PM CIGARETTE PACKER 09/05/2018 9:46 PM CIGARETTE PACKER Provider Unknown LAB - POINT OF CARE ORDERABLES Performing Organization Address [facility] Co de Phone Number [facility] [address] [place] [phone] * GLUCOSE - POINT OF CARE (09/05/2018 4:56 PM CIGARETTE PACKER) Glucose WB/POC 90 70 - 106 mg/dL 09/06/2018 6:57 AM CIGARETTE PACKER [facility] Blood BLOOD SPECIMEN / Unknown 09/05/2018 4:56 PM CIGARETTE PACKER 09/06/2018 6:57 AM CIGARETTE PACKER Provider Unknown LAB - POINT OF CARE ORDERABLES Performing Organization Address [facility] Co de Phone Number [facility] [address] [place] [phone] * GLUCOSE - POINT OF CARE (09/05/2018 11:30 AM CIGARETTE PACKER) Glucose WB/POC 94 70 - 106 mg/dL 09/05/2018 5:01 PM CIGARETTE PACKER [facility] Specimen Type CAPILLARY BLOOD 09/05/2018 5:01 PM CIGARETTE PACKER [facility] Blood BLOOD SPECIMEN / Unknown 09/05/2018 11:30 AM CIGARETTE PACKER 09/05/2018 5:01 PM CIGARETTE PACKER Narrative [facility] - 09/05/2018 5:01 PM CIGARETTE PACKER REPEAT TEST Provider Unknown LAB - POINT OF CARE ORDERABLES Performing Organization Address [facility] Co de Phone Number [facility] [address] [place] [phone] * GLUCOSE - POINT OF CARE (09/05/2018 7:08 AM CIGARETTE PACKER) Glucose WB/POC 88 70 - 106 mg/dL 09/05/2018 5:01 PM CIGARETTE PACKER [facility] Specimen Type CAPILLARY BLOOD 09/05/2018 5:01 PM CIGARETTE PACKER [facility] Blood BLOOD SPECIMEN / Unknown 09/05/2018 7:08 AM CIGARETTE PACKER 09/05/2018 5:01 PM CIGARETTE PACKER Narrative [facility] - 09/05/2018 5:01 PM CIGARETTE PACKER REPEAT TEST Hollie Frederick MD LAB - POINT OF CARE ORDERABLES Performing Organization Address [facility] de Phone Number [facility] [address] [place] [phone] * (ABNORMAL) HEMOGLOBIN A1C (09/05/2018 3:42 AM CIGARETTE PACKER) Hemoglobin A1c 6.6(H) 4.2 - 6.3 % 09/05/2018 4:16 AM CIGARETTE PACKER [facility] Estimated Average Glucose 143 mg/dL 09/05/2018 4:16 AM [facility] Blood BLOOD SPECIMEN / Unknown Venipuncture / Unknown 09/05/2018 3:42 AM CIGARETTE PACKER 09/05/2018 3:51 AM CIGARETTE PACKER Silvia TAPIA LAB - CHEMISTRY OR DERABLES Performing Organization Address [facility] Co de Phone Number [facility] [phone] [place] [phone] * GLUCOSE - POINT OF CARE (09/04/2018 4:38 PM CIGARETTE PACKER) Glucose WB/POC 98 70 - 106 mg/dL 09/04/2018 9:49 PM CIGARETTE PACKER [facility] Specimen Type CAPILLARY BLOOD 09/04/2018 9:49 PM CIGARETTE PACKER [facility] Blood BLOOD SPECIMEN / Unknown 09/04/2018 4:38 PM CIGARETTE PACKER 09/04/2018 9:49 PM CIGARETTE PACKER Narrative [facility] - 09/04/2018 9:49 PM CIGARETTE PACKER REPEAT TEST Hollie Frederick MD LAB - POINT OF CARE ORDERABLES Performing Organization Address [facility] Co de Phone Number [facility] [address] [place] [address] * (ABNORMAL) TROPONIN I (09/04/2018 2:01 PM CIGARETTE PACKER) Pathologist [facility] Troponin I 0.097(HH) 0.000 - 0.049 ng/mL 09/04/2018 3:00 PM CIGARETTE PACKER [facility] Blood BLOOD SPECIMEN / Unknown Venipuncture / Unknown 09/04/2018 2:01 PM CIGARETTE PACKER 09/04/2018 2:12 PM CIGARETTE PACKER Narrative [facility] - 09/04/2018 3:00 PM CIGARETTE PACKER Note: Diagnosis of myocardial infarction requires symptoms of ischemia or EKG changes of ischemia and Troponin I >99th of normal (0.05 ng/mL). Troponin should be drawn on initial assessment and 3-6 hours later as clinically indicated. Any condition resulting in myocardial cell damage can increase cardiac troponin levels. In addition to myocardial infarction, these include but are not limited to congestive heart failure (CHF), arrhythmia, myocarditis, and non-cardiac related causes such as pulmonary embolism, renal failure and sepsis. Edita Pinto MD LAB - CHEMISTRY ORDERABLES Performing Organization Address [facility] de Phone Number [facility] [address] [place] [address] * (ABNORMAL) COMPREHENSIVE METABOLIC PANEL (09/04/2018 9:56 AM CIGARETTE PACKER) Glucose 126(H) 74 - 106 mg/dL 09/04/2018 10:28 AM [facility] Sodium 135(L) 136 - 145 mmol/L 09/04/2018 10:28 AM [facility] Potassium 4.1 3.5 - 5.1 mmol/L 09/04/2018 10:28 AM [facility] Chloride 102 98 - 107 mmol/L 09/04/2018 10:28 AM [facility] CO2 28 22 - 31 mmol/L 09/04/2018 10:28 AM [facility] Calcium 8.4(L) 8.5 - 10.1 mg/dL 09/04/2018 10:28 AM [facility] Anion Gap 5(L) 8 - 16 mmol/L 09/04/2018 10:28 AM [facility] BUN 9 7 - 21 mg/dL 09/04/2018 10:28 AM [facility] Creatinine 0.88 0.50 - 1.30 mg/dL 09/04/2018 10:28 AM [facility] Alkaline Phosphatase 76 38 - 126 U/L 09/04/2018 10:28 AM [facility] ALT 18 13 - 61 U/L 09/04/2018 10:28 AM [facility] AST 17 5 - 40 U/L 09/04/2018 10:28 AM [facility] Protein Total 8.1 6.4 - 8.2 gm/dL 09/04/2018 10:28 AM [facility] Albumin 3.3(L) 3.4 - 5.0 gm/dL 09/04/2018 10:28 AM [facility] Bilirubin Total 0.4 0.2 - 1.0 mg/dL 09/04/2018 10:28 AM [facility] eGFR by MDRD >60 >60 mL/min/1.7 3m2 09/04/2018 10:28 AM [facility] eGFR by MDRD >60 >60 mL/min/1.7 3m2 09/04/2018 10:28 AM [facility] Blood BLOOD SPECIMEN / Unknown Venipuncture / Unknown 09/04/2018 9:56 AM [facility] [[email or web address]] 09/04/2018 10:03 AM [facility] [[email or web address]] Edita Pinto MD LAB - CHEMISTRY ORDERABLES [facility] [address] [place] [address] * TROPONIN I (09/04/2018 9:56 AM [facility] [[email or web address] Troponin I 0.049 0.000 - 0.049 ng/mL 09/04/2018 10:28 AM [facility] Blood BLOOD SPECIMEN / Unknown Venipuncture / Unknown 09/04/2018 9:56 AM CIGARETTE PACKER 09/04/2018 10:03 AM CIGARETTE PACKER Narrative [facility] - 09/04/2018 10:28 AM CIGARETTE PACKER Note: Diagnosis of myocardial infarction requires symptoms of ischemia or EKG changes of ischemia and Troponin I >99th of normal (0.05 ng/mL). Troponin should be drawn on initial assessment and 3-6 hours later as clinically indicated. Any condition resulting in myocardial cell damage can increase cardiac troponin levels. In addition to myocardial infarction, these include but are not limited to congestive heart failure (CHF), arrhythmia, myocarditis, and non-cardiac related causes such as pulmonary embolism, renal failure and sepsis. Edita Pinto MD LAB - CHEMISTRY ORDERABLES [facility] [address] [place] [address] * XR CHEST 1VW PORTABLE (09/04/2018 9:38 AM CIGARETTE PACKER) Anatomical Region Laterality Modality Chest Radiographic Love ging 09/04/2018 9:42 AM CIGARETTE PACKER Impressions 09/04/2018 9:42 AM CIGARETTE PACKER No acute disease. Reading Radiologist: Renay Ware MD on 09/04/2018 at 9:42 AM Narrative 09/04/2018 9:42 AM CIGARETTE PACKER AP Portable Chest Indication: Chest pain Findings: A single portable view of the chest shows the lungs are clear. There is cardiomegaly. Pulmonary vascularity is unremarkable. Procedure Note Renay Ware MD - 09/04/2018 AP Portable Chest Indication: Chest pain Findings: A single portable view of the chest shows the lungs are clear. There is cardiomegaly. Pulmonary vascularity is unremarkable. IMPRESSION No acute disease. Reading Radiologist: Renay Ware MD on 09/04/2018 at 9:42 AM Edita Pinto MD DIAGNOSTIC IMAGI NG ORDERABLES * CBC W AUTO DIFFERENTIAL (09/04/2018 9:23 AM CIGARETTE PACKER) WBC 5.3 4.4 - 10.7 x10E9/L 09/04/2018 9:46 AM CIGARETTE PACKER [facility] WBC Corrected x10E9/L 09/04/2018 9:46 AM [facility] RBC 4.54 3.80 - 5.40 x10E12/L 09/04/2018 9:46 AM [facility] Hemoglobin 13.2 12.0 - 17.6 gm/dL 09/04/2018 9:46 AM [facility] Hematocrit 40.3 35.2 - 51.7 % 09/04/2018 9:46 AM [facility] MCV 88.8 80.7 - 98.3 fl 09/04/2018 9:46 AM [facility] MCH 29.1 26.7 - 34.0 pg 09/04/2018 9:46 AM [facility] MCHC 32.8 30.8 - 35.9 gm/dL 09/04/2018 9:46 AM [facility] Platelet Count 224 153 - 416 x10E9/L 09/04/2018 9:46 AM [facility] RDW-CV 13.4 12.1 - 14.9 % 09/04/2018 9:46 AM [facility] MPV 10.5 9.4 - 12.9 fl 09/04/2018 9:46 AM [facility] Neutrophils % 61.6 44.0 - 73.0 % 09/04/2018 9:46 AM [facility] Lymphocytes % 30.0 20.0 - 43.0 % 09/04/2018 9:46 AM [facility] Monocytes % 6.9 5.0 - 13.0 % 09/04/2018 9:46 AM [facility] Eosinophils % 0.9 0.0 - 6.0 % 09/04/2018 9:46 AM [facility] Basophils % 0.2 0.0 - 2.0 % 09/04/2018 9:46 AM [facility] Immature Granulocytes 0.4 0 - 1 % 09/04/2018 9:46 AM [facility] Neutrophil Absolute 3.29 2.01 - 7.14 x10E9/L 09/04/2018 9:46 AM [facility] Lymphocytes Absolute 1.60 1.07 - 3.94 x10E9/L 09/04/2018 9:46 AM [facility] Monocytes Absolute 0.37 0.26 - 1.07 x10E9/L 09/04/2018 9:46 AM [employer] [facility] Eosinophils Absolute 0.05 0 - 0.47 x10E9/L 09/04/2018 9:46 AM [facility] Basophils Absolute 0.01 0 - 0.08 x10E9/L 09/04/2018 9:46 AM [facility] Immature Granulocytes Absolute 0.02 0.00 - 0.06 x10E9/L 09/04/2018 9:46 AM [facility] nRBC Auto 0 /100 WBC 09/04/2018 9:46 AM [facility] Blood BLOOD SPECIMEN / Unknown Venipuncture / Unknown 09/04/2018 9:23 AM [employer] 09/04/2018 9:38 AM [employer] Edita Pinto MD LAB - HEMATOLOGY ORDERABLES Performing Organization Address [facility] de Phone Number [facility] [address] [place] [id number] * TROPONIN I (09/04/2018 9:23 AM [employer]) [facility] Troponin I 0.039 0.000 - 0.049 ng/mL 09/04/2018 10:03 AM [facility] Blood BLOOD SPECIMEN / Unknown Venipuncture / Unknown 09/04/2018 9:23 AM [employer] 09/04/2018 9:38 AM [employer] Narrative [facility] - 09/04/2018 10:03 AM [employer] Note: Diagnosis of myocardial infarction requires symptoms of ischemia or EKG changes of ischemia and Troponin I >99th of normal (0.05 ng/mL). Troponin should be drawn on initial assessment and 3-6 hours later as clinically indicated. Any condition resulting in myocardial cell damage can increase cardiac troponin levels. In addition to myocardial infarction, these include but are not limited to congestive heart failure (CHF), arrhythmia, myocarditis, and non-cardiac related causes such as pulmonary embolism, renal failure and sepsis. Edita Pinto MD LAB - CHEMISTRY ORDERABLES Performing Organization Address [facility] de Phone Number [facility] [address] [place] [address] * EKG 12-LEAD (09/04/2018 9:01 AM [employer]) Ventricular Rate 69 BPM [facility] Atrial Rate 69 BPM [facility] P-R Interval 152 ms [facility] QRS Duration ms 74 ms [facility] Q-T Interval ms 408 ms [facility] QTC Calculation (Bezet) 437 ms [facility] Calculated P Hector 32 degrees [facility] Calculated R Hector 20 degrees [facility] Calculated T Hector -49 degrees [facility] Interpretation EKG Normal sinus rhythm T wave abnormality, consider inferior ischemia Abnormal ECG No previous ECGs available Confirmed by JUSTICE PURVIS MD ([id number]) on 09/04/2018 1:34:06 PM [facility] 09/04/2018 9:01 AM CIGARETTE PACKER 09/04/2018 1:34 PM CIGARETTE PACKER Edita Pinto MD ECG ORDERABLES [facility] documented in this encounter Visit Diagnoses Diagnosis Coronary artery disease involving coronary bypass graft of mi'kmaq heart with unstable angina pectoris (HCC)- Primary Other chest pain Coronary artery disease involving mi'kmaq heart with angina pectoris, unspecified vessel or lesion type ([facility]) S/P CABG x 3 Postsurgical aortocoronary bypass status Other chest pain Coronary artery disease involving mi'kmaq heart with angina pectoris ([facility]) documented in this encounter Administered Medications Inactive Administered Medications - up to 3 most recent administrations Medication Order MAR Action Action Date Dose Rate Site 0.9% NaCl injection 1-10 mL 1-10 mL, Intracatheter, PRN, Other, peripheral line flush, Starting on Sun09/04/18 at 0921, Until Sun09/06/18 at 1904, Flush peripheral IV catheter with 1-10 mL of normal saline before and after medications and prn to clear blood from the line or to verify patency. 0.9% NaCl injection 1-10 mL 1-10 mL, Intracatheter, INTRA-PROCEDURE ONCE, On Sun09/06/18 at 0639 $ Given 09/06/2018 11:50 AM CIGARETTE PACKER 10 mL 0.9% NaCl injection 3 mL 3 mL, Intracatheter, EVERY 8 HOURS, 1095 doses, First dose on Sun09/04/18 at 1000, Last dose on Sun09/03/19 at 2200, Flush peripheral IV catheter with 3 mL of normal saline every 8 hours. $ Given 09/06/2018 2:29 PM CIGARETTE PACKER 3 mL $ Given 09/05/2018 9:40 PM CIGARETTE PACKER 3 mL $ Given 09/05/2018 2:30 PM CIGARETTE PACKER 3 mL amLODIPine (NORVASC) tablet 5 mg 5 mg, Oral, DAILY, 365 doses, First dose on Sun09/06/18 at 1015, Last dose on Sun09/05/19 at 0900 $ Given 09/06/2018 2:27 PM CIGARETTE PACKER 5 mg aspirin (ASPIRIN) chew tablet 324 mg 324 mg, Oral, NOW, 1 dose, On Sun09/04/18 at 0930, Administer if not previously done by patient or EMS or medication is not contraindicated. $ Given 09/04/2018 6:25 PM CIGARETTE PACKER 324 mg aspirin (ASPIRIN) chew tablet 81 mg 81 mg, Oral, DAILY, 365 doses, First dose on [place]ore[place] 09/05/18 at 0900, Last dose on Sun09/04/19 at 0900 $ Given 09/06/2018 8:21 AM CIGARETTE PACKER 81 mg $ Given 09/05/2018 9:04 AM CIGARETTE PACKER 81 mg atorvastatin (LIPITOR) tablet 80 mg 80 mg, Oral, AT BEDTIME, 365 doses, First dose on Sun09/04/18 at 2100, Last dose on Sun09/03/19 at 2100 $ Given 09/05/2018 9:39 PM CIGARETTE PACKER 80 mg $ Given 09/04/2018 8:05 PM CIGARETTE PACKER 80 mg dextrose IV 12.5-25 g 12.5-25 g (25-50 mL), Intravenous, PRN, Bedside Glucose less than 70 mg/dL -If NOT able to eat and/or NPO and with IV Access, Starting on Sun09/04/18 at 1455, Until Sun09/06/18 at 1904, If NOT able to eat and/or NPO [...] 80 mg/dl. NOTIFY PROVIDER OF HYPOGLYCEMIC EVENT. furosemide (LASIX) tablet 40 mg 40 mg, Oral, DAILY, 365 doses, First dose on Sun09/04/18 at 1800, Last dose on Sun09/03/19 at 0900 $ Given 09/06/2018 8:21 AM CIGARETTE PACKER 40 mg $ Given 09/05/2018 9:04 AM CIGARETTE PACKER 40 mg $ Given 09/04/2018 6:26 PM CIGARETTE PACKER 40 mg glucagon (GLUCAGEN) injection 1 mg 1 mg, Intramuscular, PRN, Bedside Glucose less than 70 mg/dL - If NOT able to eat and/or NPO and withOUT IV Access, Starting on Sun09/04/18 at 1455, Until Sun09/06/18 at 1904, If NOT able to eat and/or NPO [...] does not have swallowing difficulties, Starting on Sun09/04/18 at 1455, Until Sun09/06/18 at 1904, If able to eat and does not [...] Units 5,000 Units, Subcutaneous, 2 TIMES DAILY, 730 doses, First dose on Sun09/04/18 at 2100, Last dose on Sun09/04/19 at 0900 $ Given 09/06/2018 8:23 AM CIGARETTE PACKER 5,000 Units Abdominal Tissue $ Given 09/05/2018 9:39 PM CIGARETTE PACKER 5,000 Units A bd Left Lower Quadrant $ Given 09/05/2018 9:04 AM CIGARETTE PACKER 5,000 Units A bdominal Tissue hydrALAZINE (APRESOLINE) injection 10 mg 10 mg, Intravenous, EVERY 4 HOURS PRN, Hypertension, Bp above 170/110, Starting on Sun09/04/18 at 1712, Until Sun09/06/18 at 1904 $ Given 09/05/2018 5:27 PM CIGARETTE PACKER 10 mg $ Given 09/04/2018 9:00 PM CIGARETTE PACKER 10 mg insulin aspart (NovoLOG) pen 0-6 Units 0-6 Units, Subcutaneous, 3 TIMES DAILY WITH MEALS, 1095 doses, First dose on Sun09/04/18 at 1800, Last dose on Sun09/04/19 at 1200, Low Dose: Correction Insulin BG (mg/dL) Corrective Action LESS than 70: follow Hypoglycemic guidelines, 70-180: NO Correction insulin, 181-220: GIVE 2 units of insulin, 221-260: GIVE 3 units of insulin, 261-300: GIVE 4 units of insulin, 301-350: GIVE 5 units of insulin and notify physician, Greater than 350: GIVE 6 units of insulin and notify physician. If the patient is NPO: DO NOT HOLD correction insulin If patient is eating meals and has orders for Mealtime insulin, combine and give at the same time. losartan (COZAAR) tablet 100 mg 100 mg, Oral, DAILY, 364 doses, First dose (after last modification) on Sun09/05/18 at 0900, Last dose on Sun09/03/19 at 0900 $ Given 09/06/2018 8:21 A M CIGARETTE PACKER 100 mg $ Given 09/05/2018 9:05 AM CIGARETTE PACKER 100 mg losartan (COZAAR) tablet 50 mg 50 mg, Oral, DAILY, 365 doses, First dose on Sun09/04/18 at 1230, Last dose on Sun09/03/19 at 0900 $ Given 09/04/2018 12:15 PM CIGARETTE PACKER 50 mg metoprolol tartrate (LOPRESSOR) tablet 100 mg 100 mg, Oral, 2 times daily (0900 and 1500), 726 doses, First dose (after last modification) on Sun09/06/18 at 1500, Last dose on Sun09/04/19 at 0900, Hold if HR below or equal to 60 or BP below 110/70 $ Given 09/06/2018 2:27 P M CIGARETTE PACKER 100 mg metoprolol tartrate (LOPRESSOR) tablet 50 mg 50 mg, Oral, NOW, 1 dose, On Sun09/04/18 at 1200 $ Given 09/04/2018 12:15 PM CIGARETTE PACKER 50 mg metoprolol tartrate (LOPRESSOR) tablet 50 mg 50 mg, Oral, 2 times daily (0900 and 1500), 730 doses, First dose on Sun09/04/18 at 1800, Last dose on Sun09/04/19 at 0900, Hold if HR below or equal to 60 or BP below 110/70 $ Given 09/06/2018 8:21 AM CIGARETTE PACKER 50 mg $ Given 09/05/2018 2:29 PM CIGARETTE PACKER 50 mg $ Given 09/05/2018 9:06 AM CIGARETTE PACKER 50 mg nitroGLYCERIN (NITROSTAT) tablet 0.4 mg 0.4 mg, Sublingual, EVERY 5 MIN PRN, Angina, Chest pain, 3 doses, Starting on Sun09/04/18 at 0921, Until Sun09/06/18 at 1904, Notify physician after 3 doses if chest pain not relieved. $ Given 09/04/2018 11:59 AM CIGARETTE PACKER 0.4 mg perflutren (DEFINITY) injection ADS Med 1 dose, Starting on Sun09/06/18 at 0824, Until Sun09/06/18 at 0953, Mirna Llanos : cabinet override Shake well before using. $ Given 09/06/2018 9:53 AM CIGARETTE PACKER 0.39 mL regadenoson (LEXISCAN) injection 0.4 mg 0.4 mg, Intravenous, INTRA-PROCEDURE ONCE, On Sun09/06/18 at 0639, Administer as a rapid injection over 10 seconds. Follow with 5ml saline flush. $ Given 09/06/2018 11:50 AM CIGARETTE PACKER 0.4 mg regadenoson (LEXISCAN) injection ADS Med 1 dose, Starting on Sun09/06/18 at 1055, Until Sun09/06/18 at 1150, Antonella Uribe : cabinet override documented in this encounter Active and Recently Administered Medications Times are shown in CIGARETTE PACKER. Scheduled Medication Order 09/04/2018 09/05/2018 09/06/2018 0.9% NaCl injection 1-10 mL 1-10 mL, Intracatheter, INTRA-PROCEDURE ONCE, On Sun09/06/18 at 0639 1150 ($ Given - Provider: Antonella Uribe, RN) 0.9% NaCl injection 3 mL(Linked Group 1) 3 mL, Intracatheter, EVERY 8 HOURS, 1095 doses, First dose on Sun09/04/18 at 1000, Last dose on Sun09/03/19 at 2200, Flush peripheral IV catheter with 3 mL of normal saline every 8 hours. 1000 (Due)1400 (Due)2005 ($ Given - Provider: Carmella Recinos RN) 0524 (Not Administered - Provider: Carmella Recinos RN - Reason: Patient sleeping)1430 ($ Given - Provider: Nicolle Brunson, ZACHARY)2140 ($ Given - Provider: Rosalie Olson, ZACHARY) 0534 (Not Administered - Provider: Rosalie Olson RN - Reason: Patient sleeping)1429 ($ Given - Provider: Rosalee Pope, ZACHARY) amLODIPine (NORVASC) tablet 5 mg 5 mg, Oral, DAILY, 365 doses, First dose on Sun09/06/18 at 1015, Last dose on Sun09/05/19 at 0900 1427 ($ Given - Provider: Rosalee Pope, ZACHARY) aspirin (ASPIRIN) chew tablet 324 mg (COMPLETED) 324 mg, Oral, NOW, 1 dose, On Sun09/04/18 at 0930, Administer if not previously done by patient or EMS or medication is not contraindicated. 1825 ($ Given - Provider: Andreia Mccarty, ZACHARY) aspirin (ASPIRIN) chew tablet 81 mg 81 mg, Oral, DAILY, 365 doses, First dose on Sun09/05/18 at 0900, Last dose on Sun09/04/19 at 0900 0904 ($ Given - Provider: Nicolle Brunson RN) 0821 ($ Given - Provider: Rosalee Pope, ZACHARY) atorvastatin (LIPITOR) tablet 80 mg 80 mg, Oral, AT BEDTIME, 365 doses, First dose on Sun09/04/18 at 2100, Last dose on Sun09/03/19 at 2100 2004 ($ Given - Provider: Carmella Recinos RN) 2138 ($ Given - Provider: Rosalie Olson, ZACHARY) furosemide (LASIX) tablet 40 mg 40 mg, Oral, DAILY, 365 doses, First dose on Sun09/04/18 at 1800, Last dose on Sun09/03/19 at 0900 1826 ($ Given - Provider: Andreia Mccarty RN) 0904 ($ Given - Provider: Nicolle Brunson RN) 0821 ($ Given - Provider: Rosalee Pope RN) heparin injection 5,000 Units 5,000 Units, Subcutaneous, 2 TIMES DAILY, 730 doses, First dose on Sun09/04/18 at 2100, Last dose on Sun09/04/19 at 0900 2004 ($ Given - Provider: Carmella Recinos RN) 09 ($ Given - Provider: Nicolle Brunson RN)2138 ($ Given - Provider: Rosalie Olson, ZACHARY) 0823 ($ Given - Provider: Rosalee Pope RN) insulin aspart (NovoLOG) pen 0-6 Units 0-6 Units, Subcutaneous, 3 TIMES DAILY WITH MEALS, 1095 doses, First dose on Sun09/04/18 at 1800, Last dose on Sun09/04/19 at 1200, Low Dose: Correction Insulin BG (mg/dL) Corrective Action LESS than 70: follow Hypoglycemic guidelines, 70-180: NO Correction insulin, 181-220: GIVE 2 units of insulin, 221-260: GIVE 3 units of insulin, 261-300: GIVE 4 units of insulin, 301-350: GIVE 5 units of insulin and notify physician, Greater than 350: GIVE 6 units of insulin and notify physician. If the patient is NPO: DO NOT HOLD correction insulin If patient is eating meals and has orders for Mealtime insulin, combine and give at the same time. 1700 (Not Administered - Provider: Andreia Mccarty RN - Reason: Per Administration Instructions) 0805 (Not Administered - Provider: Nicolle Brunson RN - Reason: Per Administration Instructions)1200 (Not Administered - Provider: Nicolle Brunson RN - Reason: Per Administration Instructions)1729 (Not Administered - Provider: Rosalee Pope RN - Reason: Per Administration Instructions) 0810 (Not Administered - Provider: Rosalee Pope RN - Reason: Per Administration Instructions)1358 (Not Administered - Provider: Rosalee Pope RN - Reason: Per Administration Instructions)1800 (Due) losartan (COZAAR) tablet 100 mg 100 mg, Oral, DAILY, 364 doses, First dose (after last modification) on Sun09/05/18 at 0900, Last dose on Sun09/03/19 at 0900 0905 ($ Given - Provider: Nicolle Brunson RN) 0821 ($ Given - Provider: Rosalee Pope RN) losartan (COZAAR) tablet 50 mg (CANCELED) 50 mg, Oral, DAILY, 365 doses, First dose on Sun09/04/18 at 1230, Last dose on Sun09/03/19 at 0900 1215 ($ Given - Provider: Zaynab Mcgarry, EMT-P) metoprolol tartrate (LOPRESSOR) tablet 100 mg 100 mg, Oral, 2 times daily (0900 and 1500), 726 doses, First dose (after last modification) on Sun09/06/18 at 1500, Last dose on Sun09/04/19 at 0900, Hold if HR below or equal to 60 or BP below 110/70 1427 ($ Given - Provider: Rosalee Pope RN) metoprolol tartrate (LOPRESSOR) tablet 50 mg (COMPLETED) 50 mg, Oral, NOW, 1 dose, On Sun09/04/18 at 1200 1215 ($ Given - Provider: Zaynab Mcgarry EMT-P) metoprolol tartrate (LOPRESSOR) tablet 50 mg (CANCELED) 50 mg, Oral, 2 times daily (0900 and 1500), 730 doses, First dose on Sun09/04/18 at 1800, Last dose on Sun09/04/19 at 0900, Hold if HR below or equal to 60 or BP below 110/70 1825 ($ Given - Provider: Andreia Mccarty RN) 0906 ($ Given - Provider: Nicolle Brunson, RN)1429 ($ Given - Provider: Nicolle Brunson, RN) 0821 ($ Given - Provider: Rosalee Pope RN) regadenoson (LEXISCAN) injection 0.4 mg 0.4 mg, Intravenous, INTRA-PROCEDURE ONCE, On Sun09/06/18 at 0639, Administer as a rapid injection over 10 seconds. Follow with 5ml saline flush. 1150 ($ Given - Provider: Antonella Uribe RN) PRN Medication Order 09/04/2018 09/05/2018 09/06/2018 0.9% NaCl injection 1-10 mL(Linked Group 1) 1-10 mL, Intracatheter, PRN, Other, peripheral line flush, Starting on Sun09/04/18 at 0921, Until Sun09/06/18 at 1904, Flush peripheral IV catheter with 1-10 mL of normal saline before and after medications and prn to clear blood from the line or to verify patency. dextrose IV 12.5-25 g 12.5-25 g (25-50 mL), Intravenous, PRN, Bedside Glucose less than 70 mg/dL -If NOT able to eat and/or NPO and with IV Access, Starting on Sun09/04/18 at 1455, Until Sun09/06/18 at 1904, If NOT able to eat and/or NPO [...] NPO and withOUT IV Access, Starting on Sun09/04/18 at 1455, Until Sun09/06/18 at 1904, If NOT able to eat and/or NPO [...] does not have swallowing difficulties, Starting on Sun09/04/18 at 1455, Until Sun09/06/18 at 1904, If able to eat and does not [...] 80 mg/dl. NOTIFY PROVIDER OF HYPOGLYCEMIC EVENT. hydrALAZINE (APRESOLINE) injection 10 mg 10 mg, Intravenous, EVERY 4 HOURS PRN, Hypertension, Bp above 170/110, Starting on Sun09/04/18 at 1712, Until Sun09/06/18 at 1904 2100 ($ Given - Provider: Carmella Recinos RN) 1727 ($ Given - Provider: Rosalee Pope RN) nitroGLYCERIN (NITROSTAT) tablet 0.4 mg 0.4 mg, Sublingual, EVERY 5 MIN PRN, Angina, Chest pain, 3 doses, Starting on Sun09/04/18 at 0921, Until Sun09/06/18 at 1904, Notify physician after 3 doses if chest pain not relieved. 1159 ($ Given - Provider: Laure Celeste RN) No Frequency Medication Order 09/04/2018 09/05/2018 09/06/2018 perflutren (DEFINITY) injection ADS Med (COMPLETED) 1 dose, Starting on Sun09/06/18 at 0824, Until Sun09/06/18 at 0953, Mirna Llanos : cabinet override Shake well before using. 0953 ($ Given - Prov ider: Mirna Llanos STEFANIE - Comment: for adequate imaging on Echo) Linked Groups Order Group 1: SALINE LOCK, INSERT AND MAINTAIN (CANCELED) Routine, CONTINUOUS, Starting on Sun09/04/18 at 0930, Until Specified, New collection And 0.9% NaCl injection 3 mLJump to med 3 mL, Intracatheter, EVERY 8 HOURS, 1095 doses, First dose on Sun09/04/18 at 1000, Last dose on Sun09/03/19 at 2200, Flush peripheral IV catheter with 3 mL of normal saline every 8 hours. And 0.9% NaCl injection 1-10 mLJump to med 1-10 mL, Intracatheter, PRN, Other, peripheral line flush, Starting on Sun09/04/18 at 0921, Until Sun09/06/18 at 1904, Flush peripheral IV catheter with 1-10 mL of normal saline before and after medications and prn to clear blood from the line or to verify patency. documented in this encounter Care Teams Technical Photographer Relationship Specialty Start Date End Date Lisy Olmedo MD PCP - General 04/20/09 05/09/22 documented as of this encounter
--- OUTSIDE RECORDS SUMMARY | 2024-10-11 19:47 | XMS_ITS | Encounter Summary ---
Author Organization [facility] Address [address] [facility] [place] [address] Care Team Providers Care Telesales Professional Name Role Phone Lsiy Olmedo MD Primary Care Provide r Encounter Details Date Type Department Care Team (Latest Contact Info) Description 11/16/2017 Hospital Outpatient Visit [facility]CHO [address] [place] [phone] Discharge Disposition: Home or Self Care Social History Tobacco Use Types Packs/Day Years Used Date Smoking Tobacco: Never Assessed Sex and Gender Information Value Date Recorded Sex Assigned at Not on file Gender Identity Not on file Sexual Orientation Not on file documented as of this encounter Plan of Treatment Upcoming Encounters Date Type Department Care Team (Late st Contact Info) Description 10/20/2024 8:00 AM MIXER OPERATOR Office Visit [facility] - Family Medicine [address] [facility], [address] [phone] Kiana Cole MD [address] [place] [address] 11/28/2024 9:00 AM MIXER OPERATOR Office Visit [facility] - Neurology [address] [facility], [place] [phone] Aline Finch MD [address] [place] [address] 02/10/2025 10:00 AM CDT Office Visit [facility] - Cardiology [address] [facility], [place] [address] [place] [phone] Curly Lay MD [address] [facility] [place] [address] [place] [phone] documented as of this encounter Procedures Procedure Name Priority Date/Time Associated Diagnosis Comments ECHO COMPLETE Routine 11/16/2017 12:00 AM MIXER OPERATOR documented in this encounter Results * ECHO W DOPPLER AND COLOR FLOW (11/16/2017 12:00 AM MIXER OPERATOR) Anatomical Region Laterality Modality Other 11/16/2017 Jeffrey Jo MD ECHOCARDIOGRAPHY RAD IANT documented in this encounter Visit Diagnoses Diagnosis Essential (primary) hypertension Unspecified essential hypertension Type 2 diabetes mellitus without complications (HCC) Type II or unspecified type diabetes mellitus without mention of complication, not stated as uncontrolled Abnormal result of other cardiovascular function study documented in this encounter Care Teams Telesales Professional Relationship Specialty Start Date End Date Lisy Olmedo MD PCP - General 04/20/09 05/09/22 documented as of this encounter
--- OUTSIDE RECORDS SUMMARY | 2024-10-11 19:47 | XMS_ITS | Encounter Summary ---
Author Organization [facility] Health Address [address] [place] [address] Care Team Providers Care Laborer Powerhouse Name Role Phone Lisy Olmedo MD Primary Care Provide r Encounter Details Date Type Department Care Team (Latest Contact Info) Description 11/16/2017 Hospital Outpatient Visit [facility] Cardiac Jet Worker/EPS [address] [place] [address] Discharge Disposition: Home or Self Care Social History Tobacco Use Types Packs/Day Years Used Date Smoking Tobacco: Never Assessed Sex and Gender Information Value Date Recorded Sex Assigned at Not on file Gender Identity Not on file Sexual Orientation Not on file documented as of this encounter Last Filed Vital Signs Vital Sign Reading Time Taken Comments Blood Pressure 138/76 11/16/2017 2:35 PM NREMT Pulse 66 11/16/2017 2:35 PM NREMT Temperature - - Respiratory Rate 15 11/16/2017 2:35 PM NREMT Oxygen Saturation 96% 11/16/2017 2:35 PM NREMT Inhaled Oxygen Concentration - - Weight - - Height - - Body Mass Index - - documented in this encounter H&P Notes * Dinesh Daley MD - 11/15/2017 8:53 PM CST H&P Signed by Dinesh Daley MD on 11/16/2017 9:59 AM Author: Dinesh Daley MD Service: Cardiology Author Type: Resident Date of Service: 11/15/2017 8:53 PM Filed: 11/16/2017 9:59 AM Note Type: H&P Status: Signed Shellfish Grower: Dinesh Daley MD (Resident) Cosigner: Ofelia Branham MD at 11/16/2017 10:09 AM [facility] Cardiac Catheterization H&P Patient: Yaya Vazquez Jr. Age: 57 y.o. Date of : 1960 Date of Admission: 11/16/2017 Date: 11/16/2017 Procedure: LHC+/- PCI and/or RHC Pre-catheterization diagnosis: abnormal stress test Pre-Procedure Assessment/Data Stress Test or Coronary Imaging within Past 6 Months: I. Type:exercise nuclear II. Findings: 1. Abnormal exercise test because of ST segment depression 2. Blood pressure response was normal. Heart rate response was normal. Exercise tolerance was fair. Myocardial perfusion imaging is abnormal. Overall left ventricular systolic function was abnormal with regional wall motion abnormalities as described above. The type and distribution of the scintigraphic finding is consistent with moderately severe inferior and inferolateral ischemia. No previous study was available for comparison. Subjective: Patient is a 57 y.o. male presents with 1. CAD presentation (description of symptoms leading to catheterization): Unstable angina (60 days) 2. Thrombolytics given prior to catheterization? NO 3. Anginal classification for past 2 weeks: CCS II 4. Anti-anginal medications within the past 2 weeks? Yes beta blockers and calcium channel blockers 5. Heart failure within the past 2 weeks: NYHA II 6. Known Cardiomyopathy or LV systolic dysfunction: Yes, mild 7. Most recent LVEF within past 6 months: 46-55% 8. Cardiogenic shock within past 24 hours: No 9. Cardiac Arrest within past 24 hours: No 10. Patient reports pain. The pain is located substernal. Patient describes the pain as sharp, continuous lasting up to 10 minutes, radiating to left shoulder and associated with nausea. Exacerbated by stress, alleviating with rest. Patient Active Problem List Diagnosis Date Noted ??? CAD (coronary artery disease) 11/16/2017 Priority: Low ??? Abnormal stress test 11/12/2017 Priority: Low ??? Obesity (BMI 30-39.9) 04/24/2012 Priority: Low ??? Essential hypertension 09/28/2011 Priority: Low ??? Controlled type 2 diabetes mellitus without complication, without long-term current use of insulin 09/28/2011 Priority: Low Problem List as of 11/16/2017 Reviewed: 11/12/2017 5:06 AM by Jeffrey Jo MD Obesity (BMI 30-39.9) Essential hypertension Controlled type 2 diabetes mellitus without complication, without long-term current use of insulin Abnormal stress test Past Medical History: Diagnosis Date ??? Asthma ??? Coronary artery disease father RI at 62 ??? Diabetes mellitus ??? Hypertension Past Surgical History: Procedure Laterality Date ??? HX COLONOSCOPY 2012 ??? HX TONSILLECTOMY Allergies Allergen Reactions ??? Pcn [Penicillin V] Rash ??? No Known Latex Allergy Critical Recent Medications: Warfarin,dabigatran, rivaroxaban, apixaban - No Pre-procedural aspirin - Yes Pre-procedural Clopidogrel, ticagrelor, or prasugrel - No Chronic Insulin - No Other Meds - Lipitor, amlodipine, carvedilol, glipizide, losartan, HCTZ, metformin, januvia, Review of Systems: A comprehensive review of systems was negative except for: per HPI Medical/Social/Family History Relevant to Cardiac Catheterization 1. Current/Recent smoker within the past year:Yes 2. Hypertension, either by history or taking anti-HTN therapy:Yes 3. Dyslipidemia, either by history or taking lipid-lowering therapy: Yes 4. Family history of premature CAD (men<45, women<55): No 5. Prior RI: No 6. Prior heart failure: No 7. Prior valve surgery or intervention(if yes, give date): No 8. Prior cardiac cath (if yes, give date): No 9. Prior PCI (if yes, give date of most recent PCI): No 10. Prior CABG (if yes, give date) No 11. Currently on dialysis: No 12. History of kidney disease or renal failure (include details for yes): No 13. Cerebrovascular disease( include details for yes): No 14. History of central nervous system disease (include details for yes): No 15. Known peripheral arterial disease (aortic, renal, iliofemoral,include details for yes ):No 16. Chronic lung disease: No 17. Diabetes Mellitus: Yes Therapy: Oral 18. Any significant liver disease(include details on yes): No 19. Other: Objective: Wt Readings from Last 1 Encounters: 11/09/17 288 lb (130.6 kg) , Ht Readings from Last 1 Encounters: 11/09/17 6' 3 (1.905 m) There is no height or weight on file to calculate BMI. Estimated body surface area is 2.56 meters squared as calculated from the following: Height as of 11/09/17: 6' 3 (1.905 m). Weight as of 11/09/17: 288 lb (130.6 kg). Patient Vitals for the past 8 hrs (Last 1 readings): BP Pulse Resp SpO2 11/16/17 0916 137/78 66 15 98 % EXAM: General: The patient is alert, oriented and in no apparent distress. HEENT: Neck Supple, posterior pharynx is clear. LUNGS: Lungs are clear to auscultation. CVS: Heart sounds are normal, no murmurs. PULSES: Femoral: Right: +2 Left: +2 Dorsalis Pedis: Right: +2 Left: +2 Posterior Tibial: Right: +2 Left: +2 Radial: Right: +2 Left: +2 Barbo: Right: Sufficient Left: Sufficient ABDOMEN: Soft, no tenderness, masses or organomegaly. NEURO: Non-focal. Labs: Most recent: CBC, CMP, PT, PTT, INR Lab Results Component Value Date WBC 8.0 11/09/2017 HGB 14.1 11/09/2017 HCT 42.9 11/09/2017 MCV 83.5 11/09/2017 PLT 319 11/09/2017 Lab Results Component Value Date BUN 18 11/09/2017 CREATININE 0.95 11/09/2017 NA 138 11/09/2017 K 4.0 11/09/2017 CL 100 11/09/2017 CO2 30 11/09/2017 GLU 86 11/09/2017 CALCIUM 9.7 11/09/2017 PROT 7.4 11/19/2015 ALB 4.1 11/19/2015 TBILI 0.3 11/19/2015 ALKPHOS 49 11/19/2015 ALT 14 11/19/2015 AST 14 11/19/2015 PT Date Value Ref Range Status 11/09/2017 10.6 9.0 - 11.5 sec Final Comment: For more information on this test, go to: http://education.[employer] ([employer])/faq/SBN130 REPORT COMMENT: IS PATIENT ON HEPARIN, ARGATROBAN OR DABIGATRAN?->N Test Performed at: [facility] [address] [id number] EH PURVIS DO,MPH INR Date Value Ref Range Status 11/09/2017 1.0 Final Comment: Reference Range 0.9-1.1 Moderate-intensity Warfarin Therapy 2.0-3.0 Higher-intensity Warfarin Therapy 3.0-4.0 Three most recent: CK, CK-MB, Troponin I No results found for: CKTOTAL, CKMB, TROPONINI Assessment: Indications for Diagnostic Catheterization: I. Clinical summary for cardiac catheterization: recurrent chest discomfort in setting of high-riskexercise MPI stress test results. Chest pain persists despite 2 antianginal drugs. II. Indications/Appropriateness Criteria for left heart cath: 17 Dinesh Daley MD 11/15/2017 T documented in this encounter Procedure Notes * Navarro Cleary MD - 11/16/2017 3:21 PM CST Procedures Signed by Fatmata Aguilera RN on 11/16/2017 3:25 PM Author: Fatmata Aguilera RN Service: Cardiac Cath Author Type: Registered Nurse Date of Service: 11/16/2017 3:21 PM Filed: 11/16/2017 3:25 PM Note Type: Procedures Status: Addendum Shellfish Grower: Fatmata Aguilera RN (Registered Nurse) Related Notes: Original Note by Fatmata Aguilera RN (Registered Nurse) filed at 11/16/2017 3:22 PM Patient given discharge instructions no questions or concerns voiced, patient signed and copy of the instructions given. Patient accompanied to door by staff member * Navarro Cleary MD - 11/16/2017 12:00 PM CST Procedures Signed by Fatmata Aguilera RN on 11/16/2017 12:09 PM Author: Fatmata Aguilera RN Service: Cardiac Cath Author Type: Registered Nurse Date of Service: 11/16/2017 12:00 PM Filed: 11/16/2017 12:09 PM Note Type: Procedures Status: Signed Shellfish Grower: Fatmata Aguilera RN (Registered Nurse) Patient to Echo * Dinesh Daley MD - 11/16/2017 11:09 AM CST Procedures Signed by Dinesh Daley MD on 11/16/2017 11:10 AM Author: Dinesh Daley MD Service: Cardiology Author Type: Resident Date of Service: 11/16/2017 11:09 AM Filed: 11/16/2017 11:10 AM Note Type: Procedures Status: Signed Shellfish Grower: Dinesh Daley MD (Resident) Cosigner: Ofelia Branham MD at 11/20/2017 10:32 AM Procedure Orders: 1. IP SEDATION POST [[id number]] ordered by Dinesh Daley MD at 11/16/17 1109 Post-procedure Diagnoses: 1. Coronary artery disease of chinik artery of chinik heart with stable angina pectoris [I25.118] Yaya Vazquez is a 57 y.o. male patient. Patient Active Problem List Diagnosis ??? Essential hypertension ??? Controlled type 2 diabetes mellitus without complication, without long-term current use of insulin ??? Obesity (BMI 30-39.9) ??? Abnormal stress test ??? CAD (coronary artery disease) Past Medical History: Diagnosis Date ??? Asthma ??? Coronary artery disease father RI at 62 ??? Diabetes mellitus ??? Hypertension Blood pressure 137/78, pulse 66, resp. rate 15, SpO2 98 %. .Sedation Post Date/Time: 11/16/2017 11:09 AM Performed by: DINESH DALEY Authorized by: OFELIA BRANHAM Unit: Jet Worker Post-Procedure Attestation: I have reviewed the post-procedure vital signs: Patient is 2 - able to move four extremities voluntarily on command. Patient 2 - is able to breathe and cough freely. Patient's 2 - Blood pressure within 20% of pre-anesthesia level Patient is 1 - Arousable on calling Patient's 2 - color is WNL. Mendoza score is 9 Patient's temperature is Normalthermic Patient's pain level is: None Post-sedation nausea and vomiting present: No Post-sedation hydration status is adequate: Yes Dinesh Daley MD 11/16/2017 T * Dinesh Daley MD - 11/16/2017 9:59 AM CST Procedures Signed by Dinesh Daley MD on 11/16/2017 10:00 AM Author: Dinesh Daley MD Service: Cardiology Author Type: Resident Date of Service: 11/16/2017 9:59 AM Filed: 11/16/2017 10:00 AM Note Type: Procedures Status: Signed Shellfish Grower: Dinesh Daley MD (Resident) Cosigner: Ofelia Branham MD at 11/16/2017 10:09 AM Procedure Orders: 1. IP SEDATION PRE [[id number]] ordered by Dinesh Daley MD at 11/16/17 0959 Post-procedure Diagnoses: 1. Abnormal stress test [R94.39] Yaya Vazquez is a 57 y.o. male patient. Patient Active Problem List Diagnosis ??? Essential hypertension ??? Controlled type 2 diabetes mellitus without complication, without long-term current use of insulin ??? Obesity (BMI 30-39.9) ??? Abnormal stress test ??? CAD (coronary artery disease) Past Medical History: Diagnosis Date ??? Asthma ??? Coronary artery disease father RI at 62 ??? Diabetes mellitus ??? Hypertension Blood pressure 137/78, pulse 66, resp. rate 15, SpO2 98 %. 'Sedation Pre Date/Time: 11/16/2017 9:59 AM Performed by: DINESH DALEY Authorized by: OFELIA BRANHAM Unit: Jet Worker Consent: Verbal consent obtained. Written consent obtained. History & Exam Attestation: I have reviewed the pre-procedure nursing assessment: Yes Brief history and exam related to procedure complete: Yes H&P was reviewed, the patient was examined, and that ? no changes? have occurred in the patient? s condition since the H&P was complete: Yes History of previous anesthetic problems/complications including family history: No History of airway problems: No Tracheal deviation: No Short thick neck/non-visible neck: NoNeck with limited range of motion: No Visible anterior neck mass: No Small mouth opening/ and/or sub/mental space (less than 3 finger breadths): No Protruding upper teeth: No Oxygen saturation less than 91% on room air: No Pre-Procedure ASA Classification: ASA 2 Mallampati Classification: Class II Procedure Plan: Moderate Sedation Based on the pre-procedure assessment, History and Physical, and allergy history, this patient is asuitable candidate for sedation during the planned procedure. I have discussed the plan, risk, benefits and alternatives with patient, family members or patient retail representative: Yes Attestation: I have reviewed the immediate pre-procedure vital signs: Yes Patient reports or my clinical evaluation indicates there have been no changes in the patient's condition prior to the start of the procedure: Yes Intra-Procedure Dinesh Daley MD 11/16/2017 T documented in this encounter OR Notes * Brief Op Note - Dinesh Daley MD - 11/16/2017 11:10 AM CST Brief Op Note Signed by Dinesh Daley MD on 11/16/2017 11:15 AM Author: Dinesh Daley MD Service: Cardiology Author Type: Resident Date of Service: 11/16/2017 11:10 AM Filed: 11/16/2017 11:15 AM Note Type: Brief Op Note Status: Signed Shellfish Grower: Dinesh Daley MD (Resident) Cosigner: Ofelia Branham MD at 11/20/2017 10:32 AM [facility] Brief Diagnostic Note Yaya Vazquez Anesthesia: moderate sedation Moderate sedation on this adult patient was ordered by me, administered intravenously in my presence, and monitored by the procedure nurse as an independent trained observer who was present throughout the procedure. The following parameters were monitored: oxygen saturation, heart rate, blood pressu re, and response to care. Intra-service sedation start time was 1027 and end time was 1057 during which I was present. Total physician intra-service sedation time was 30 minutes. For details on pre-moderate sedation and post-moderate sedation patient evaluation, please review the evaluation forms in [facility]. For details on monitored clinical parameters during the intra-service sedation time, please review the procedure nurse documentation in [facility]. Pre-op Diagnosis: abnormal stress test Post-op Diagnosis: multivessel coronary artery disease Has the Pre-op Diagnosis changed? Yes Staff: Ofelia Branham MD Findings: Severe multivessel CAD involving LAD, LCx and dominant RCA Description of Procedure: - left radial access - LVEDP 5 - Severe multivessel CAD involving LAD, LCx and dominant RCA Complications: none Estimated Blood Loss: 10 mL Specimens None Dinesh Daley MD Date: 11/16/2017 Time: 11:10 AM T documented in this encounter Miscellaneous Notes * Addendum Note - Ofelia Branham MD - 11/16/2017 12:43 PM CST Addendum Note Signed by Ofelia Branham MD on 12/19/2017 4:09 PM Author: Ofelia Branham MD Service: Cardiology Author Type: Physician Date of Service: 11/16/2017 12:43 PM Filed: 12/19/2017 4:09 PM Note Type: Addendum Note Status: Signed Shellfish Grower: Ofelia Branham MD (Physician) Encounter addended by: Ofelia Branham MD on: 12/19/2017 4:09 PM Actions taken: Charge Capture section accepted T documented in this encounter Plan of Treatment Upcoming Encounters Date Type Department Care Team (Late st Contact Info) Description 10/20/2024 8:00 AM NREMT Office Visit [facility] Medical Group - Family Medicine [address] [phone] Kiana Cole MD [address] [place] [address] 11/28/2024 9:00 AM NREMT Office Visit [facility]ician Group - Neurology [address] [facility] [place] [phone] Aline Finch MD [address] [facility] [place] [address] 02/10/2025 10:00 AM CDT Office Visit [facility]ician Group - Cardiology [address] [facility] [place] [phone] Curly Lay MD [address] [facility] [address] [place] [phone] documented as of this encounter Procedures Procedure Name Priority Date/Time Associated Diagnosis Comments CCL CARDIAC CATH LEFT HEART ONLY Routine 11/16/2017 11:23 AM NREMT documented in this encounter Results * CCL CATH LEFT HEART ARTERY VENTRICLE (11/16/2017 11:23 AM NREMT) Anatomical Region Laterality Modality X-Ray Angiograph y Narrative 12/06/2017 9:57 AM NREMT [facility] Cardiac Catheterization Procedure Note Patient: Yaya Vazquez Age: 57 y.o. Date of : 1960 Date of Admission: 11/16/17 Procedure Date: 11/16/17 FELLOW / ROLL TRUCKER: Dinesh Daley MD ATTENDING PHYSICIAN: Ofelia Branham MD PREVIOUS STRESS STUDIES WITHIN 6 MONTHS: [...] comparison. DIAGNOSTIC APPROPRIATENESS CRITERIA: 17 HISTORY: Mr. Yaya Vazquez is a 57 year old male [...] evaluation, please review the evaluation forms in [facility]. For details on monitored clinical parameters during the intra-service sedation time, please review the procedure nurse documentation in [facility]. COMPLICATIONS: none HEMODYNAMIC FINDINGS: ?? AO: [...] risk factors. Cardiac surgery evaluation for CABG. Dinesh Daley MD 11/16/2017 I was present for the critical portion of the procedure, and either performed or directly supervised all critical parts of the procedure. Ofelia Branham MD Procedure Note Ofelia Branham MD - 03/22/2018 [facility] Cardiac Catheterization Procedure Note Patient: Yaya Vazquez Age: 57 y.o. Date of : 1960 Date of Admission: 11/16/17 Procedure Date: 11/16/17 FELLOW / ROLL TRUCKER: Dinesh Daley MD ATTENDING PHYSICIAN: Ofelia Branham MD PREVIOUS STRESS STUDIES WITHIN 6 MONTHS: [...] comparison. DIAGNOSTIC APPROPRIATENESS CRITERIA: 17 HISTORY: Mr. Yaya Vazquez is a 57 year old male [...] patient evaluation,please review the evaluation forms in [facility]. For details on monitoredclinical parameters during the intra-service sedation time, please reviewthe procedure nurse documentation in [facility]. COMPLICATIONS: none HEMODYNAMIC FINDINGS: AO: 117/70 [...] risk factors. Cardiac surgery evaluation for CABG. Dinesh Daley MD 11/16/2017 I was present for the critical portion of the procedure, and eitherperformed or directly supervised all critical parts of the procedure. Ofelia Branham MD Jeffrey Jo MD CARDIAC SINGLE WIRE SAW OPERATOR RAD IANT documented in this encounter Visit Diagnoses Diagnosis Atherosclerotic heart disease of chinik coronary artery with other forms of angina pectoris (HCC) Essential (primary) hypertension Unspecified essential hypertension Type 2 diabetes mellitus without complications (HCC) Type II or unspecified type diabetes mellitus without mention of complication, not stated as uncontrolled Abnormal result of other cardiovascular function study documented in this encounter Care Teams Laborer Powerhouse Relationship Specialty Start Date End Date Lisy Olmedo MD PCP - General 04/20/09 05/09/22 documented as of this encounter
--- OUTSIDE RECORDS SUMMARY | 2024-10-11 19:47 | XMS_ITS | Encounter Summary ---
Author Organization [facility] Health Address [address] [address] Care Team Providers Care Prepress Proofer Name Role Phone Lisy Olmedo MD Primary Care Provide r Reason for Visit * Reason Onset Date Comments Follow-up 01/23/2018 Encounter Details Date Type Department Care Team (Late st Contact Info) Description 01/23/2018 Telephone [facility] Cardiology [address] [facility] [address] [place], [place] [phone] Daria Adame RN Follow-up Social History Tobacco Use Types Packs/Day Years Used Date Smoking Tobacco: Never Assessed Sex and Gender Information Value Date Recorded Sex Assigned at Not on file Gender Identity Not on file Sexual Orientation Not on file documented as of this encounter Miscellaneous Notes * Telephone Encounter - Daria Adame RN - 01/23/2018 3:06 PM CDT Received call from Shani Picolight confirming that Mr. Vazquez is to undergo cardiac surgery tomorrow 01/24 Left my number if any other information is needed. documented in this encounter Plan of Treatment Upcoming Encounters Date Type Department Care Team (Late st Contact Info) Description 10/20/2024 8:00 AM PAEDIATRIC THORACIC PHYSICIAN Office Visit [facility] Medical Group - Family Medicine [address] [facility] [facility] [address] [place] [phone] Kiana Cole MD [address] [place] [address] 11/28/2024 9:00 AM PAEDIATRIC THORACIC PHYSICIAN Office Visit [facility] Physician Group - Neurology [address] [facility] [place] [address] Aline Finch MD [address] [facility] [place] [address] 02/10/2025 10:00 AM CDT Office Visit [facility] Physician Group - Cardiology [address] [facility] [phone] [place] [phone] Curly Lay MD [address] [place] [phone] documented as of this encounter Visit Diagnoses Not on filedocumented in this encounter Care Teams Prepress Proofer Relationship Specialty Start Date End Date Lisy Olmedo MD PCP - General 04/20/09 05/09/22 documented as of this encounter
--- OUTSIDE RECORDS SUMMARY | 2024-10-11 19:47 | XMS_ITS | CCD ---
Author Name Saroj DAVIS, Dr Amanda escalona Address [address] [place] [address] Phone Organization [facility] Phone Care Team Providers Care Manager Sap Name Role Phone Unavailable Primary Care Provider Unavailabl e Unavailable Chronic Care Management Unavaila ble Summary Purpose DataExchange Insurance Providers Payer name Policy type / Coverage type Covered democrat ID Effective Begin Date Effective End Date [place] [id number] Unknown Family history Sister Diagnosis Age At [...] No Inactive Date Active LISINOPRIL angioedema RxNorm: 24505 05/21/2024 No Inactive D ate Active Penicillin [...] disease ICD-10: I11.9 ICD-9: 402.90 07/24/2024 Active detention (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 ICD-1 0: Z79.4 [...] Syncope ICD-10: R55 ICD-9: 780.2 06/24/2024 Active detention (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 ICD-10: Z79.4 05/21 Active Urinary incontinence ICD-10: R32 ICD-9: 788.30 05/21/2024 Active Medications Medication Codes Instructions Start Date Stop Date Status Fill Instructions ipratropium 0.5 mg-albuterol 3 mg (2.5 mg base)/3 mL nebulization soln RxNorm: 2612513 Inhale 3 Milliliter(s) Inhalation every 6 hours as needed for shortness of breath 4 11/19/19 25 Active albuterol sulfate HFA 90 mcg/actuation aerosol inhaler RxNorm: 1842916 Administer 2 Puff(s) Inhalation every 4 to 6 hours 4 12/20/19 25 Active buspirone 5 mg tablet RxNorm: 473471 Take 1 Tablet(s) Oral three times a day 4 10/26/19 25 Active Senna Plus 8.6 mg-50 mg tablet RxNorm: 110944 Take 2 Tablet(s) Oral two times a day as needed for constipation 4 07/28/20 24 Inactive multivitamin tablet RxNorm: Take 1 Tablet(s) Oral every day 4 10/20/19 26 Active buspirone 5 mg tablet RxNorm: 463774 Take 1 Tablet(s) Oral two times a day 4 10/16/19 26 Active polyethylene glycol 3350 17 gram/dose oral powder RxNorm: 348519 Use 1 Unit Dose Oral every day Mix 17g (one capful) with 8oz liquid. Hold for loose stools. 4 08/17/20 25 Active ipratropium 0.5 mg-albuterol 3 mg (2.5 mg base)/3 mL nebulization soln RxNorm: 6473630 Administer 3 Milliliter(s) Inhalation every 6 hours as needed for shortness of breath 4 08/22/20 24 Inactive buspirone 5 mg tablet RxNorm: 133705 Take 1 Tablet(s) Oral three times a day 07/23/20 24 Inactive aspirin 81 mg chewable tablet RxNorm: 146780 Take 1 Tablet(s) Feeding Tube / PEG every day 08/13/20 Active atorvastatin 40 mg tablet RxNorm: 967629 Take 1 Tablet(s) Feeding Tube / PEG every night at bedtime 08/13/20 25 Active amlodipine 10 mg tablet RxNorm: 950661 Take 1 Tablet(s) Feeding Tube / PEG once daily 08/13/20 25 Active clopidogrel 75 mg tablet RxNorm: 774554 Take 1 Tablet(s) Feeding Tube / PEG once daily 08/13/20 25 Active Pen Needle 31 gauge x 5/16 RxNorm: Take 1 Pen Needle Subcutaneous three times a day 08/13/20 25 Active famotidine 20 mg tablet RxNorm: 856936 Take 1 Tablet(s) Feeding Tube / PEG two times a day 08/13/20 25 Active thiamine HCl (vitamin B1) 100 mg tablet RxNorm: 732304 Take 1 Tablet(s) Feeding Tube / PEG every day 08/13/20 25 Active folic acid 1 mg tablet RxNorm: 571855 Take 1 Tablet(s) Feeding Tube / PEG every day 08/13/20 25 Active multivit-mineral -folic acid 333 mcg-lutein 3 mg-zeaxant 0.67 mg tablet RxNorm: Take 1 Tablet(s) Oral every day 4 No Stop Date Active Lantus Solostar U-100 Insulin 100 unit/mL (3 mL) subcutaneous pen RxNorm: 348432 Administer 15 Unit(s) Subcutaneous every night at bedtime 08/13/20 25 Active loratadine 10 mg tablet RxNorm: 623274 Take 1 Tablet(s) Feeding Tube / PEG every day 08/13/20 25 Active Senna Plus 8.6 mg-50 mg tablet RxNorm: 929233 Take 2 Tablet(s) Feeding Tube / PEG two times a day as needed for constipation 07/29/20 24 Inactive albuterol sulfate HFA 90 mcg/actuation aerosol inhaler RxNorm: 2724641 Administer 2 Puff(s) Inhalation every 4 to 6 hours 4 05/21/20 24 Inactive Medication Administered No Medication Administered data Results Observation Observation Code Item Item Code Result Date Service Location Direct LDL 82716 LDL-Direct 96626-7 117 mg/dL 024 [facility] [address] [place] [address] [id number] IN [facility] Glyco HGB A1C 49681-5 7.0 % 024 [facility] [address] [place] [address] [id number] IN [facility] eAG 25854-1 154 mg/dL 024 [facility] [address] [place] [address] TSH 39252 TSH 75872-6 2.540 uIU/mL 024 [facility] [address] [place] [address] HDL - CHOL 16851 HDL 2085-9 30 mg/dL 024 [facility] [address] [place] [address] HDL - CHOL 14280 CHD 32739-8 17 % 024 [facility] [address] [place] [address] VITAMIN B-12 57770 Vitamin B12 2132-9 609 pg/mL 05/22 024 [facility] [address] [place] [address] 16005 PTH 18510 PTH 2731-8 21.7 pg/mL 024 [facility] [address] [place] [address] 53058 CHOLESTEROL 33162 Cholesterol 2093-3 177 mg/dL 024 [facility] [address] [place] [address] 95317 TRIGLYCERIDES 81510 Triglycerides 2571-8 173 mg/dL 024 [facility] [address] [place] [address] 72837 TRIGLYCERIDES 37942 VLDL 66413-2 35 mg/dL 024 [facility] [address] [place] [address] COMPLETE CBC W/ DIFF WBC 43172 WBC 6690-2 6.8 K/ul 024 [facility] [address] [place] [address] COMPLETE CBC W/ DIFF WBC 57343 RBC 789-8 3.89 M/uL 024 [facility] [address] [place] [address] 84426 COMPLETE CBC W/ DIFF WBC 28355 Hemoglobin 718-7 10.6 g/dL 024 [facility] [address] [place] [address] 37869 COMPLETE CBC W/ DIFF WBC 14003 Hematocrit 4544-3 32.2 % 024 [facility] [address] [place] [address] COMPLETE CBC W/ DIFF WBC 23682 MCV 787-2 82.9 fL 024 [facility] [address] [place] [address] 87805 COMPLETE CBC W/ DIFF WBC 80052 MCH 785-6 27.3 pg 024 [facility] [address] [place] [address] 75463 COMPLETE CBC W/ DIFF WBC 11943 MCHC 786-4 32.9 g/dL 024 [facility] [address] [place] [address] 78316 COMPLETE CBC W/ DIFF WBC 87454 RDW 788-0 15.5 % 024 [facility] [address] [place] [address] 61946 COMPLETE CBC W/ DIFF WBC 94003 Platelet Count 777-3 303 K/uL 024 [facility] [address] [place] [address] 08103 COMPLETE CBC W/ DIFF WBC 43329 MPV 28385-9 8.0 fL 024 [facility] [address] [place] [address] 21990 COMPLETE CBC W/ DIFF WBC 59636 Neutrophils % 770-8 51.2 % 024 [facility] [address] [place] [address] 72789 COMPLETE CBC W/ DIFF WBC 31958 Lymphocytes % 736-9 39.8 % 024 [facility] [address] [place] [address] 87381 COMPLETE CBC W/ DIFF WBC 98873 Monocytes % 5905-5 6.7 % 024 [facility] [address] [place] [address] 76269 COMPLETE CBC W/ DIFF WBC 20659 Eosinophils % 713-8 2.1 % 024 [facility] [address] [place] [address] 34921 COMPLETE CBC W/ DIFF WBC 75335 Basophils% 706-2 0.2 % 024 [facility] [address] [place] [address] 62002 COMPLETE CBC W/ DIFF WBC 87892 Absolute Neutrophil 751-8 3482 /ul 024 [facility] [address] [place] [address] 05626 COMPLETE CBC W/ DIFF WBC 33496 Absolute Lymphocyte 82685-2 2706 /ul 024 [facility] [address] [place] [address] 42635 COMPLETE CBC W/ DIFF WBC 16583 Absolute Monocyte 742-7 456 /ul 024 [facility] [address] [place] [address] 19540 COMPLETE CBC W/ DIFF WBC 38591 Absolute Eosinophil 711-2 143 /ul 024 [facility] [address] [place] [address] 17161 COMPLETE CBC W/ DIFF WBC 91155 Absolute Basophil 704-7 14 /ul 024 [facility] [address] [place] [address] 02669 CHEM 14 (METABOLIC PANEL) 93930 Glucose 2345-7 138 mg/dL 024 [facility] [address] [place] [address] 66287 CHEM 14 (METABOLIC PANEL) 07796 BUN 3094-0 21 mg/dL 024 [facility] [address] [place] [address] 35840 CHEM 14 (METABOLIC PANEL) 41971 Creatinine 2160-0 0.8 mg/dL 024 [facility] [address] [place] [address] 41213 CHEM 14 (METABOLIC PANEL) 00750 BUN/Creat Ratio 3097-3 25.7 024 [facility] [address] [place] [address] 10186 CHEM 14 (METABOLIC PANEL) 17818 GFR Estimated 52502-2 97 mL/min/1. 73m2 024 [facility] [address] [place] [address] 70357 CHEM 14 (METABOLIC PANEL) 43780 Sodium 2951-2 139 mmol/L 024 [facility] [address] [place] [address] 07611 CHEM 14 (METABOLIC PANEL) 26141 Potassium 2823-3 4.0 mmol/L 024 [facility] [address] [place] [address] 00882 CHEM 14 (METABOLIC PANEL) 81462 Chloride 2075-0 98 mmol/L 024 [facility] [address] [place] [address] 75633 CHEM 14 (METABOLIC PANEL) 73442 Total CO2 2028-9 30 mmol/L 024 [facility] [address] [place] [address] 40729 CHEM 14 (METABOLIC PANEL) 02011 Calculated Serum Osmolality 96733-8 293 mOsm/kg 024 [facility] [address] [place] [address] 02370 CHEM 14 (METABOLIC PANEL) 37220 Anion Gap 1863-0 15.0 mEq/L 024 [facility] [address] [place] [address] CHEM 14 (METABOLIC PANEL) 75870 Albumin 85770-7 3.1 g/dL 024 [facility] [address] [place] [address] CHEM 14 (METABOLIC PANEL) 98148 Total Protein 2885-2 7.5 g/dL 024 [facility] [address] [place] [address] 36559 CHEM 14 (METABOLIC PANEL) 20508 Globulin 2336-6 4.4 g/dL 024 [facility] [address] [place] [address] 17395 CHEM 14 (METABOLIC PANEL) 93238 Albumin/Globulin Ratio 1759-0 0.7 024 [facility] [address] [place] [address] 15440 CHEM 14 (METABOLIC PANEL) 79749 ALK PHOS 6768-6 66.00 U/L 024 [facility] [address] [place] [address] 51610 CHEM 14 (METABOLIC PANEL) 21699 SGOT/AST 1920-8 13 U/L 024 [facility] [address] [place] [address] 85355 CHEM 14 (METABOLIC PANEL) 42643 SGPT/ALT 1743-4 19 U/L 024 [facility] [address] [place] [address] 94810 CHEM 14 (METABOLIC PANEL) 56462 Total Bilirubin 1975-2 0.3 mg/dL 024 [facility] [address] [place] [address] 01484 CHEM 14 (METABOLIC PANEL) 32008 Calcium 70672-9 9.4 mg/dL 024 [facility] [address] [place] [address] 58974 CHEM 14 (METABOLIC PANEL) 60959 Corrected Calcium 28478-5 10.3 mg/dL 024 [facility] [address] [place] [address] 96772 Procedures Procedure Codes Date Annual Wellness Visit (Initial Visit) CPT-4: G04 38 07/24/2024 FLU VACC CELL CULT PRSV FREE CPT-4: 52250 07/2024 Most recent A1c = 7.0% and < 8.0% CPT-4: 3051F 07/24/2024 FLUCEL VAX PFS VAC NO PRSV 0.5ML IM CPT-4: 06338 07/24/2024 Admin flu virus vaccine CPT-4: G0008 07/24/20 24 LEVEL OF ACTIVITY ASSESS CPT-4: 1003F 024 PT SCRN TBCO ID NON USER CPT-4: G9903 07/15 Current tobacco non-user CPT-4: 1036F 024 Amnt pain noted; none prsnt CPT-4: 1126F 07/15 MED LIST DOCD IN [facility] CPT-4: 1159F 07/24/2024 RVW MEDS BY RX/DR IN [facility] CPT-4: 116F 2023 Patient Screened for Future Fall Risk CPT-4: 110 0F 07/24/2024 Fall plan of care doc'd CPT-4: 0518F 07/24/20 24 Most recent A1c = 7.0% and < 8.0% CPT-4: 305F 06/24/2024 MED LIST DOCD IN [facility] CPT-4: 1159F 06/24/2024 RVW MEDS BY RX/DR IN [facility] CPT-4: 1160F 2023 Discharge Meds Reconciled w/ Current Med list CP T-4: 1111F 06/24/2024 Amnt pain noted; none prsnt CPT-4: 1126F 06/[address] CPT-4: 1159F 05/21/2024 RVW MEDS BY RX/DR IN [facility] CPT-4: 1160F 2023 Discharge Meds Reconciled w/ Current Med list CP T-4: 1111F 05/21/2024 Amnt pain noted; none prsnt CPT-4: 1126F 04/2024 Screening for clinical depre ssion is negative, follow-up plan not required CPT-4: G8510 05/21/2024 Patient Screened for Future Fall Risk CPT-4: 110 0F 05/21/2024 Fall plan of care doc'd CPT-4: 0518F 05/21/20 24 Cologuard CPT-4: 96565 Unknown [id number] CPT-4: 34167 Unknown Gastroenterology Referral SNOMED CT: 306 [id number] CPT-4: R12 Unknown Vital Signs Date Vital 07/24/2024 Blood Pressure 1: 120/82 Code: 8480-6 BMI: 32.3 Code: 67806-8 Heart Rate 1: 81 bpm Height: 6'4 Code: 8302-2 Respiratory Rate: 16 bpm SpO2: 97% Temperature: 36.1 (C) / 97.0 (F) Weight: 265 lbs Code: 28662-1 06/24/2024 Blood Pressure 1: 134/76 Code: 8480-6 BMI: 34.6 Code: 82274-9 Heart Rate 1: 86 bpm Height: 6'4 Code: 8302-2 Respiratory Rate: 17 bpm SpO2: 94% Temperature: 36.4 (C) / 97.6 (F) Weight: 284 lbs Code: 63510-4 05/21/2024 Blood Pressure 1: 135/82 Code: 8480-6 BMI: 32.3 Code: 75276-7 Heart Rate 1: 84 bpm Height: 6'4 Code: 8302-2 Respiratory Rate: 17 bpm SpO2: 93% Temperature: 35.6 (C) / 96.0 (F) Weight: 265 lbs Code: 73060-3 Reason For Visit Reason For Visit Effective Dates Notes annual wellness visit 07/24/2024 post ED/hospital visit 06/24/2024 new patient visit 05/21/2024 Encounters Encounter Performer [...] disease)[ICD10: K21.9] Diagnosis: Gastrostomy present[ICD10: Z93.1] Diagnosis: detention (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[ICD10: Z79.4] Diagnosis: At high risk for falls[ICD10: Z91.81] [facility] [address] [place] [address] CPT-4: G0438 4 (38181) Home or Residence Visit Est Pt - [...] ] Diagnosis: [ICD9: ] Diagnosis: [ICD9: ] [facility] [address] [place] [address] CPT-4: 91498 4 (31290) Home or Residence Visit Est Pt - Moderate Level, 40 mins Diagnosis: Syncope[ICD10: R55] Diagnosis: Hemiparesis due to recent cerebrovascular accident (CVA)[ICD10: I69.359] Diagnosis: Diabetes mellitus due to underlying condition with diabetic neuropathy, with long-term current use of insulin[ICD10: E08.40] 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[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: Z79.4] Diagnosis: Hypertension [...] cancer screening[ICD10: Z12.11] Diagnosis: Paroxysmal cough[ICD10: R05.8] [facility] [address] [place] [address] CPT-4: 55987 4 (55512) Home or Residence Visit INTEGRATION ARCHITECT - Moderate Level, 60 mins Diagnosis: Hemiparesis due to recent cerebrovascular accident (CVA)[ICD10: I69.359] Diagnosis: Gastrostomy present[ICD10: Z93.1] Diagnosis: Diabetes mellitus due to underlying condition with diabetic neuropathy, with long-term current use of insulin[ICD10: E08.40] Diagnosis: Hypertension with heart disease[ICD10: I11.9] Diagnosis: Dysphagia as late effect of cerebrovascular accident (CVA)[ICD10: I69.391] Diagnosis: detention (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[ICD10: Z79.4] Diagnosis: Dysarthria [...] adult medical examination with abnormal findings[ICD10: Z00.01] [facility] [address] [place] [address] CPT-4: 82295 4 Plan of Care Planned Activity Notes [...] insulin: Stable Hba1c 7.0. On Lantus Z79.4-V58.67 detention (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: On Lantus 15 [...] placed R05.8-786.2 Paroxysmal cough R26.9-781.2 Gait abnormality: [facility] . On PT progressing J45.909-493.90 Asthma K21.9-530.81 GERD (gastroesophageal reflux disease): On Pepcid 07/24/2024 [facility] 07/[facility]24 Patient Education: Obesity Completed 07/24/2024 Patient Education: AWV Preventative Screening Schedule 2020 Completed 07/24/2024 Patient Education: Patient Medication Summary Completed 07/24/2024 Patient Education: Patient Medication Summary Completed 07/07/2024 Visit Plan: R55-780.2 Syncope: m ost likely due to Autonomic dysfunc. R/o Cardiac Arrhythmia. though unlikely. Doing Event monitor. May need Midodrine. I69.359-438.20 Hemiparesis due to recent cerebrovascular accident (CVA): On ASA. Lipitor. On PT/OT. E08.40-249.60 Diabetes mellitus due to underlying condition with diabetic neuropathy, with long-term current use of insulin: Stable. Hba1c 7.0. 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 On PT/OT for strengthening, balance, coordination Z12.11-V76.51 Colon cancer screening: oguanolberto R05.8-786.2 Paroxysmal cough: poss due to poor pharyngeal reflex, GERD . Try Protonix. Oropharyngeal suctioning. Order Suction Aspirator 06/24/2024 Appointment: Sean Kyle WPtel: [address] [place] [address] E034 06/24/2024 Patient Education: Obesity Completed 06/24/2024 Patient Education: Patient Medication Summary Completed 06/24/2024 Care Plan: Cologuanolberto Ordered 06/15 Appointment: Oscar Hoyt WPtel: [address] [facility] [address] [id number] [place] Phone Call 06/20/2024 Appointment: Mony Moseley WPtel: [address] [place], [place] [id number] Phone Call 06/06/2024 Appointment: Mony Moseley WPtel: [address] [place], [place] [id number] Phone Call 05/26/2024 Visit Plan: I69.359-438.20 Hemiparesis due to recent cerebrovascular accident (CVA): Weak Rt side. Refer PT/OT Z93.1-V44.1 Gastrostomy present Due to Dysphagia. On Ensure. Change rate 70 ml from 6 am tp=o 11 pm E08.40-249.60 Diabetes mellitus due to underlying condition with diabetic neuropathy, with long-term current use of insulin D/C NPH Insulin. Start Lantus 15 U qhs I11.9-402.90 Hypertension with heart disease Controlled. 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) J45.909-493.90 Asthma I25.10-414.00 Coronary artery disease F10.11-305.03 H/O alcohol abuse Z91.81-V15.88 At high risk for falls: Fall precaution E78.5-272.4 Dyslipidemia: On Lipitor K21.9-530.81 GERD (gastroesophageal reflux disease) G47.33-327.23 MONTY (obstructive sleep apnea) E66.9-278.00 Obesity (BMI 30.0-34.9) R32-788.30 Urinary incontinence R26.9-781.2 Gait abnormality Z00.01-V70.0 Encounter for general adult medical examination with abnormal findings 05/21/2024 Appointment: Sean Kyle WPtel: [address] [facility] N034 05/21/2024 Patient Education: Patient Medication Summary Completed 05/21/2024 Patient Education: Obesity Completed 05/21/2024 Referral: [employer] WPtel: [address] [place] [address] Referral faxed to: Agency Name: [employer] Agency Address: [address] [place] [address] Agency Phone #: [phone] Agency Agency will contact the patient to schedule Order Faxed Referral: Pending Medical Records Information [facility] requires Consent when requesting records, there i currently no consent on file for the patient can we get consent uploaded to our [facility] so we can finish the request. thank you On Hold ? Awaiting Documentation Referral: [facility] WPtel: [address] [place], [place] [phone] [facility]- [facility] Ruiz [address] [facility], [facility] [address] [address] Reprocess Referral: [facility] WPtel: [address] 05/22/2024 order faxed to agency. Not Taken Up Referral: [facility] WPtel: [address] [facility] [address] [place] [address] Referral ACT - Recert Referral: Pending [employer] Referral Information lvm , provided the above agency information. Instructed to call O&R department if they do not hear back from agency withing 7-10 days.05/22/24 no answer, lvm to cb Spoke with office HVS Referral faxed to:[facility] Agency Name: _[facility] Agency Address:_ [address], [place] [address] Agency Phone #:_ Agency _ Agency will contact the patient to schedule appointment. Order Faxed Referral: Sean Kyle WPtel: [address] Agency contacted, confirmed they're accepting new patients. They will run insurance once order is received Referral faxed to: Agency Name: [employer] Agency Address: [address] [facility], [place] [address] Agency Phone #:[phone] Agency Agency will ship to patient. pt has referral info Order Faxed Referral: [facility] WPtel: [address] [facility] [address] [place], [place] [id number] Referral ACT - Cert Referral: [facility] WPtel: [address] Notes & referral faxed to [facility] [phone] Order Faxed Referral: Pending Incontinence Supplies Order Information called and spoke to Nanette patient ANAYELIA an advised contact number given Order Faxed Referral: Sean Kyle WPtel: [address] [place] [phone] 06-24-2024. Called pt. spoke with Jenn Do [...] Information called and spoke to patient JUDY Kay peggy advised Not Taken Up - Patient Insurance [...] insulin: Stable Hba1c 7.0. 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 On PT progressing J45.909-493.90 Asthma K21.9-530.81 GERD (gastroesophageal reflux disease): On Pepcid 07/24/2024 Fall precaution Aspiration precaution Postural change. R55-780.2 Syncope: most likely due to Autonomic dysfunc. R/o Cardiac Arrhythmia. though unlikely. Doing Event monitor. May need Midodrine. I69.359-438.20 Hemiparesis due to recent cerebrovascular accident (CVA): On ASA. Lipitor. On PT/OT. E08.40-249.60 Diabetes mellitus due to underlying condition with diabetic neuropathy, with long-term current use of insulin: Stable. Hba1c 7.0. On Lantus Z79.4-V58.67 detention (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; On Lantus 15 [...] At high risk for falls: at present [facility] bound. On PT/OT for strengthening, balance, coordination Z12.11-V76.51 Colon cancer screening: [place] R05.8-786.2 Paroxysmal cough: poss due to poor pharyngeal reflex, GERD . Try Protonix. Oropharyngeal suctioning. Order Suction Aspirator 06/24/2024 Apiration Precaution Postural change frequently. I69.359-438.20 Hemiparesis due to recent cerebrovascular accident (CVA): Weak Rt side. Refer PT/OT Z93.1-V44.1 Gastrostomy present; Due to Dysphagia. On Ensure. Change rate 70 ml from 6 am tp=o 11 pm E08.40-249.60 Diabetes mellitus due to underlying condition with diabetic neuropathy, with long-term current use of insulin D/C NPH Insulin. Start Lantus 15 U qhs I11.9-402.90 Hypertension with heart disease ;Controlled. 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
--- OUTSIDE RECORDS SUMMARY | 2024-10-11 19:47 | XMS_ITS ---
Author Organization [facility] Address [address] [facility] [place] [address] Care Team Providers Care Hoop Maker Name Role Phone Sylvain Daniels MD Unavailable [phone] Kiana Cole MD Primary Care Provider QMM & AWV - [facility] Status:Closed (Closed) Start date:10/06/2022 Enrollment date:10/06/2022 Enrollment reason:Identified using claims or encounter data End date:10/06/2022 Close reason:Does not meet the criteria Overview Patient was already contact 09/05/2022 Continued Care and Services Coordination
--- OUTSIDE RECORDS SUMMARY | 2024-10-11 19:47 | XMS_ITS | Encounter Summary ---
Author Organization [facility] Address [address] [place] [address] Care Team Providers Care Adobe Maker Name Role Phone Lisy Olmedo MD Primary Care Provide r Reason for Visit * Reason Comments Imm Inj flu shot Encounter Details Date Type Department Care Team (Late st Contact Info) Description 10/05/2017 11:40 AM SENIOR TECHNICAL SUPPORT ANALYST Office Visit [facility] AT [address] [phone] Provider, Carli Exp [facility] Influenza vaccine needed (Primary Dx) Social History Tobacco Use Types Packs/Day Years Used Date Smoking Tobacco: Never Assessed Sex and Gender Information Value Date Recorded Sex Assigned at Not on file Gender Identity Not on file Sexual Orientation Not on file documented as of this encounter Patient Instructions * Patient Instructions* Skye Blackburn, FOUNTAIN OPERATOR-HOTEL REGISTRATION CLERK - 10/05/2017 12:06 PM SENIOR TECHNICAL SUPPORT ANALYST Images from the original note were not included. Influenza Vaccine WHAT YOU NEED TO KNOW: What is the influenza vaccine? The influenza vaccine is an injection given to help prevent influenza (flu). The flu is caused by a virus. The virus spreads from person to person through coughing and sneezing. Several types of viruses cause the flu. The viruses exchange specialist time, so new vaccines are made each year. The vaccine begins to protect you about 2 weeks after you get it. The flu shot usually injected into your upper arm. It may be given in your thigh. What are the types of influenza vaccines? You may get a vaccine with a weak, live, or virus. The vaccine with a live virus can cause mild illness, but it does not cause the flu. When should I get the influenza vaccine? The influenza vaccine is offered every year starting in June or July. Get the influenza vaccine as soon as it is available. Children between 6 months and 8 years old need 2 vaccines during the first year they get the vaccine. The 2 vaccines should begiven 4 or more weeks apart. It is best if the same type of vaccine is given both times. Who should get the flu shot? ?? Infants 6 months or older ?? Any healthy adult who would like to decrease the risk for the flu ?? Anyone living with or caring for children younger than 5 years ?? Healthcare workers ?? Anyone who lives in a long-term care facility ?? Anyone who has chronic health problems, such as asthma, diabetes, or blood disorders ?? Anyone who has a weak immune system ?? Women who are or will be during the flu season Who should not get the flu shot? ?? Anyone who has an egg allergy should ask the healthcare provider if it is safe to get the flu shot ?? Infants younger than 6 months ?? Anyone who has had an allergic reaction to the flu shot ?? Anyone who is sick or has a fever ?? Anyone who received a diagnosis of Guillain-Ramirez?? syndrome within 6 weeks of getting a flu vaccine ?? Anyone who is allergic to thimerosal (mercury) What are the risks of the influenza vaccine? The flu shot may cause mild symptoms, such as a fever,headache, and muscle aches. It may also cause mild to moderate soreness or redness at the area where you were given the shot. You may still get the flu after you receive the influenza vaccine. If youare allergic to eggs, ask about an egg-free vaccine. You may have an allergic reaction to the vaccine. This can be life-threatening. Call 911 for any of the following: ?? Your mouth and throat are swollen. ?? You are wheezing or have trouble breathing. ?? You have chest pain or your heart is beating faster than normal for you. ?? You feel like you are going to faint. When should I seek immediate care? ?? Your face is red or swollen. ?? You have hives that spread over your body. ?? You feel weak or dizzy. When should I contact my healthcare provider? ?? You have increased pain, redness, or swelling around the area where the shot was given. ?? You have questions or concerns about the influenza vaccine. CARE AGREEMENT: You have the right to help plan your care. Learn about your health condition and how it may be treated. Discuss treatment options with your caregivers to decide what care you want to receive. You always have the right to refuse treatment. The above information is an oxygen equipment aide only. It is not intended as medical advice for individual conditions or treatments. Talk to your doctor, nurse or pharmacist before following any medical regimen to see if it is safe and effective for you. ?? 2016 [employer]. Information is for End User's use only and may not be sold, redistributed or otherwise used for commercial purposes. All illustrations and images included in CareNotes?? are the copyrighted property of [employer]. or [employer]. OR TECHNICAL SUPPORT ANALYST documented in this encounter Progress Notes * Skye Blackburn APRN-CNP - 10/05/2017 12:03 PM CST Patient is here for flu vaccine. Vaccine screening checklist reviewed OR TECHNICAL SUPPORT ANALYST documented in this encounter Plan of Treatment Upcoming Encounters Date Type Department Care Team (Late st Contact Info) Description 10/20/2024 8:00 AM SENIOR TECHNICAL SUPPORT ANALYST Office Visit [facility] Medical [facility] - Family Medicine [address] [address] [place] [phone] Kiana Cole MD [address] [place], [place] [id number] 11/28/2024 9:00 AM SENIOR TECHNICAL SUPPORT ANALYST Office Visit [facility] - Neurology [address] [facility] [place] [id number] Aline Finch MD [address] [facility] [place] [address] 02/10/2025 10:00 AM CDT Office Visit [facility] - Cardiology [address] [facility] [address] [place] [address] Curly Lay MD [address] [facility] [address] [place] [address] documented as of this encounter Visit Diagnoses Diagnosis Influenza vaccine needed- Primary Need for prophylactic vaccination and inoculation against influenza documented in this encounter Care Teams Adobe Maker Relationship Specialty Start Date End Date Lisy Olmedo MD PCP - General 04/20/09 05/09/22 documented as of this encounter
--- OUTSIDE RECORDS SUMMARY | 2024-10-11 19:47 | XMS_ITS | Encounter Summary ---
Author Organization [facility] Address [address] [place] [address] Care Team Providers Care Medical Authorization Specialist Name Role Phone Lisy Olmedo MD Primary Care Provide r Encounter Details Date Type Department Care Team (Latest Contact Info) Description 01/11/2018 Hospital Outpatient Visit Historic [facility] [address] [place] [phone] Fabienne Cardona MD [address] [place] [phone] Discharge Disposition: Home or Self Care Social [...] st Contact Info) Description 10/20/2024 8:00 AM COMMUTER PILOT Office Visit [facility] - Family Medicine [address] [facility] [address] [place] [phone] Kiana Cole MD [address] [place] [address] 11/28/2024 9:00 AM COMMUTER PILOT Office Visit [facility] - Neurology [address] [facility] [place] [phone] Aline Finch MD [address] [facility] [place] [place] [address] 02/10/2025 10:00 AM CDT Office Visit [facility] - Cardiology [address] [facility] [place] [address] [place] [phone] Curly Lay MD [address] [facility] [address] [place] [address] documented as of this encounter Procedures Procedure Name Priority Date/Time Associated Diagnosis Comments PTT [facility] Routine 01/11/2018 3:48 PM CDT PT-INR [facility] Routine 01/11/2018 3:48 PM CDT URINALYSIS W/MICROSCOPIC NO CULTURE Routine 01/11/2018 3:48 PM CDT HEMOGLOBIN A1C Routine 01/11/2018 3:48 PM CDT CULTURE URINE Routine 01/11/2018 3:48 PM CDT TYPE + SCREEN PANEL Routine 01/11/2018 3 :48 PM CDT CBC W AUTO DIFFERENTIAL Routine 01/11/2018 3:48 PM CDT COMPREHENSIVE METABOLIC PANEL Routine 01/11/2018 3:48 PM CDT PHOSPHORUS BLOOD Routine 01/11/2018 3:48 PM CDT MAGNESIUM BLOOD Routine 01/11/2018 3:48 PM CDT CBC W AUTO DIFFERENTIAL Routine 01/11/2018 3:48 PM CDT documented in this encounter Results * (ABNORMAL) CBC W AUTO DIFFERENTIAL (01/11/2018 3:48 PM CDT) WBC 7.0 3.5 - 10.5 10? 3 /uL [facility] RBC 4.60 4.30 - 5.70 10? 6 /uL [facility] Hemoglobin 13.0(L) 13.5 - 17.5 g/dL [facility] Hematocrit 38.8(L) 39.0 - 50.0 % [facility] MCV 84.3 81.0 - 97.0 fL [facility] MCH 28.3 28.0 - 34.0 pg [facility] MCHC 33.5 32.0 - 36.0 g/dL [facility] Platelet Count 254 150 - 400 10? 3 /uL [facility] RDW-SD 47.3 36.0 - 50.0 fL [facility] RDW-CV 15.7(H) 11.2 - 14.8 % [facility] MPV 9.3 9.3 - 12.8 fL [facility] nRBC Absolute 0.00 0 10? 3 /uL [facility] nRBC Auto 0.0 0 /100 WBC [facility] Neutrophils % 44.8 35.0 - 70.0 % [facility] Lymphocytes % 42.9 19.7 - 55.1 % [facility] Monocytes % 9.1 3.0 - 15.0 % [facility] Eosinophils % 2.9 0.0 - 6.0 % [facility] Basophil % 0.3 0.0 - 1.5 % [facility] Neutrophils Absolute 3.1 1.6 - 7.0 10? 3 /uL [facility] Lymphocyte Absolute 3.0(H) 0.8 - 2.9 10? 3 /uL [facility] Monocytes Absolute 0.63 0.14 - 0.66 10? 3 /uL [facility] Eosinophils Absolute 0.20 0.00 - 0.22 10? 3 /uL [facility] Basophils Absolute 0.02 0.00 - 0.06 10? 3 /uL [facility] Immature Granulocytes % 0.3 0.0 - 1.0 % [facility] Blood specimen (specimen) BLOOD SPECIMEN / Unknown 01/11/2018 3:48 PM CDT 01/11/2018 4:12 PM CDT Fabienne Cardona MD LAB - HEMATOLOGY ORD ERABLES Performing Organization Address [facility]/ZIP Co de Phone Number [address] [phone] * TYPE + SCREEN PANEL (01/11/2018 3:48 PM CDT) Pathologist [facility] Typem O NEG [facility] BLO[facility] LAB Antibody Screen NEG [facility] B[facility] Blood specimen (specimen) 01/11/2018 3:48 PM CDT 01/11/2018 4:03 PM CDT Fabienne Cardona MD LAB - BLOOD BANK ORD ERABLES Performing Organization Address [facility] Co de Phone Number [facility] B[facility]OD [facility] LAB [address] [place] [address] * (ABNORMAL) MAGNESIUM BLOOD (01/11/2018 3:48 PM CDT) [facility] Magnesium 1.3(L) 1.6 - 2.6 mg/dL [facility] Blood specimen (specimen) BLOOD SPECIMEN / Unknown 01/11/2018 3:48 PM CDT 01/11/2018 4:12 PM CDT Narrative Authorizing Provider Result Ignacia Cardona MD LAB - CHEMISTRY CHRISTIAN RAZO Performing Organization Address [facility]/ZIP Co de Phone Number [address] [phone] * (ABNORMAL) COMPREHENSIVE METABOLIC PANEL (01/11/2018 3:48 PM CDT) [facility] BUN 15 7 - 26 mg/dL [facility] Creatinine 0.9 0.6 - 1.2 mg/dL [facility] Sodium 140 136 - 145 mmol/L [facility] Potassium 4.1 3.5 - 4.5 mmol/L [facility] Chloride 102 98 - 107 mmol/L [facility] CO2 27 22 - 29 mmol/L [facility] Glucose 81 70 - 115 mg/dL [facility] Calcium 9.6 8.4 - 10.2 mg/dL [facility] Protein Total 8.2 6.0 - 8.3 g/dL [facility] Albumin 3.8 3.4 - 5.0 g/dL [facility] Bilirubin Total 0.7 0.2 - 1.2 mg/dL [facility] Alkaline Phosphatase 56 40 - 150 Units/L [facility] ALT 13 0 - 55 Units/L [facility] AST 14 5 - 34 Units/L [facility] Anion Gap 15 8 - 18 [facility] BUN/Creatinine Ratio 17 7 - 23 [facility] Osmolality Calculated 290 270 - 300 mOsm/kg [facility] Albumin/Globulin Ratio 0.9(L) 1.1 - 2.3 [facility] eGFR >60 >60 mL/min/1.7 3 m2 [facility] Blood specimen (specimen) BLOOD SPECIMEN / Unknown 01/11/2018 3:48 PM CDT 01/11/2018 4:12 PM CDT Fabienne Cardona MD LAB - CHEMISTRY ORDAnirudh RAZO [address] [phone] * PHOSPHORUS BLOOD (01/11/2018 3:48 PM CDT) Phosphorus 3.4 2.3 - 4.7 mg/dL [facility] Blood specimen (specimen) BLOOD SPECIMEN / Unknown 01/11/2018 3:48 PM CDT 01/11/2018 4:12 PM CDT Fabienne Cardona MD LAB - CHEMISTRY ORDAnirudh RAZO [address] [phone] * PTT [facility] (01/11/2018 3:48 PM CDT) APTT 28.6 23.0 - 38.4 Seconds [facility] Comment:Suggested therapeuti c range for full dose I.V. heparin therapy for venous thromboembolism is 66.0-91.0 seconds. Blood specimen (specimen) BLOOD SPECIMEN / Unknown 01/11/2018 3:48 PM CDT 01/11/2018 4:12 PM CDT Narrative [facility] - 01/11/2018 4:45 PM CDT Is patient on Heparin, Argatroban or Dabigatran?->N Fabienne Cardona MD LAB - COAGULATION OR DERABLES Performing Organization Address [facility]/ZIP Co de Phone Number [address] [phone] * (ABNORMAL) URINALYSIS W/MICROSCOPIC NO CULTURE (01/11/2018 3:48 PM CDT) Color UA Yellow Straw, Yellow, Colorless, Light Yellow [facility] Clarity UA Clear Clear [facility] Specific [place] UA 1.019 1.001 - 1.030 [facility] pH UA 5.5 5.0 - 8.0 [facility] Protein UA Negative <=20 mg/dL [facility] Glucose UA Negative Negative mg/dL [facility] Ketone UA Negative Negative mg/dL [facility] Bilirubin UA Negative Negative mg/dL [facility] Blood UA Trace(A) Negative [facility] Nitrite UA Negative Negative [facility] Leukocyte Esterase Negative Negative [facility] Urobilinogen UA <2.0 <2.0 mg/dL [facility] RBC UA 2 0 - 8 /HPF [facility] WBC UA <1 0 - 2 /HPF [facility] Bacteria UA Rare Rare, Occasional, None /HPF [facility] Squamous Epithelial Cells UA <1 0 - 1 /HPF [facility] Mucus UA Rare(A) None /LPF [facility] Urine specimen (specimen) URINE SPECIMEN OBTAINED BY CLEAN CATCH PROCEDURE / Unknown 01/11/2018 3:48 PM CDT 01/11/2018 4:12 PM CDT Fabienne Cardona MD LAB - URINALYSIS ORD ERABLES Performing Organization Address [facility]/ZIP Co de Phone Number [address] [phone] * PT-INR [facility] (01/11/2018 3:48 PM CDT) PT 12.5 12.1 - 14.8 Seconds [facility] INR 0.9 See Comment [facility] Comment: Suggested therapeutic range for low-intensity coumadin therapy for venous thromboembolism prophylaxis is an INR of 2.0-3.0. ??For high risk patients (Mitral Valve Prosthesis, Atrial Fibrillation, history of TIA/stroke), suggested prophylactic therapeutic range is an INR of 2.5-3.5. Blood specimen (specimen) BLOOD SPECIMEN / Unknown 01/11/2018 3:48 PM CDT 01/11/2018 4:12 PM CDT Narrative [facility] - 01/11/2018 4:43 PM CDT Is patient on Heparin, Argatroban or Dabigatran?->N Fabienne Cardona MD LAB - COAGULATION OR DERABLES [facility] [address] [place] [address] * (ABNORMAL) HEMOGLOBIN A1C (01/11/2018 3:48 PM CDT) Hemoglobin A1c 6.4(H) 4.4 - 6.3 % [facility] Estimated Average Glucose 137 mg/dL [facility] Comment: HbA1c Interpretation: Treatment target values recommended by ADA and other clinical organizations should be used to evaluate metabolic control in patients. Treatment Target Values: Normal : < 5.7% Pre-diabetes: 5.7-6.4% Diabetes: Equal to or greater than 6.5% Reference: [place] [employer] Standards of Care in Diabetes -2014 In patients 70 years and older consider HbA1c target range of 7.0-7.5% Reference: ??Diabetes Mellitus in Older People: Position Statement on behalf of the International Association of Gerontology and Geriatrics (IAGG), the Diabetes Working Constitution Party for Older People (EDWPOP), and the International Task Force of Experts in Diabetes. ??Reinaldo Roy, et al. J [place] [employer]. 2012 Test results diagnostic of diabetes should be repeated for confirmation. The Tosoh G8 assay for the measurement of HbA1c is a National Glycohemoglobin Standardization Program (NGSP)certified method. Results for patients with HbE disease should be interpreted with caution as this hemoglobinopathy has been shown to interfere with the Tosoh G8 assay. Blood specimen (specimen) BLOOD SPECIMEN / Unknown 01/11/2018 3:48 PM CDT 01/11/2018 4:12 PM CDT Fabienne Cardona MD LAB - CHEMISTRY CHRISTIAN RAZO Performing Organization Address [facility] de Phone Number [address] [phone] * CULTURE URINE (01/11/2018 3:48 PM CDT) Pathologist [facility] Culture Urine No growth (<1,000 CFU/mL) [facility] Urine specimen (specimen) URINE SPECIMEN OBTAINED BY CLEAN CATCH PROCEDURE / Unknown 01/11/2018 3:48 PM CDT 01/11/2018 4:12 PM CDT Narrative [facility] - 01/12/2018 11:38 AM CDT Specimen Type->Urine Resulting Lab: ?? [facility] MICROBIOLOGY [address] [place] [id number] PH: [phone] Resulting Lab: ?? [facility] MICROBIOLOGY [address] [place] [id number] PH: [phone] Fabienne Cardona MD LAB - MICROBIOLOGY O RDCELIA Performing Organization Address [facility] de Phone Number [address] [phone] * CBC W AUTO DIFFERENTIAL (01/11/2018 3:48 PM CDT) Blood specimen (specimen) BLOOD SPECIMEN / Unknown 01/11/2018 3:48 PM CDT Narrative [facility] - 01/11/2018 4:35 PM CDT The following orders were created for panel order CBC w/Differential. Procedure ? Abnormality ? Status ? --------- ? ------ ? CBC WITH DIFFERENTIAL[[id number]] ? Abnormal ?Final result ? Please view results for these tests on the individual orders. Fabienne Cardona MD LAB - HEMATOLOGY ORD ERABLES Performing Organization Address City/State/[facility] Co de Phone Number [facility] [address] documented in this encounter Visit Diagnoses Diagnosis Atherosclerotic heart disease of [place] coronary artery without angina pectoris Coronary atherosclerosis of [place] coronary artery Essential (primary) hypertension Unspecified essential hypertension Encounter for other preprocedural examination documented in this encounter Care Teams Medical Authorization Specialist Relationship Specialty Start Date End Date Lisy Olmedo MD PCP - General 04/20/09 05/09/22 documented as of this encounter
--- OUTSIDE RECORDS SUMMARY | 2024-10-11 19:47 | XMS_ITS | Encounter Summary ---
Author Organization [facility] Address [address] [place] [place] [address] Care Team Providers Care Bed Manager Name Role Phone Lisy Olmedo MD Primary Care Provide r Encounter Details Date Type Department Care Team (Latest Contact Info) Description 12/21/2017 Hospital Out[facility] [address] [place] [phone] Fabienne Cardona MD [address] [place] [phone] Discharge Disposition: Home or Self Care [...] st Contact Info) Description 10/20/2024 8:00 AM CAMP[facility] HAND Office Visit [facility] - Family Medicine [address] [facility] [address] [phone] Kiana Cole MD [address] [place] [address] 11/28/2024 9:00 AM CAMP[facility] HAND Office Visit [facility] - Neurology [address] [place] [address] Aline Finch MD [address] [place] [address] 02/10/2025 10:00 AM CDT Office Visit [facility] - Cardiology [address], [place] [address] [place] [phone] Curly Lay MD [address] [place] [address] [place] [address] documented as of this encounter Procedures Procedure Name Priority Date/Time Associated Diagnosis Comments VAS CAROTID DUPLEX BILATERAL Routine 12/21/2017 2:[address] CHEST WO CONTRAST Routine 12/21/2017 1:46 PM CAMP[facility] HAND XR CHEST 2VW Routine 12/21/2017 1:33 PM [facility] HAND documented in this encounter Results * VAS CAROTID DUPLEX BILATERAL (12/21/2017 2:23 PM CAMP[facility] HAND) Anatomical Region Laterality Modality Other Fabienne Cardona MD VASCULAR LAB ORDERAB LES * CT CHEST WO CONTRAST (12/21/2017 1:46 PM CAMP[facility] HAND) Anatomical Region Laterality Modality Chest Other Impressions 12/21/2017 5:14 PM CAMP[facility] HAND IMPRESSION: 1. Mildly dilated/ectatic aortic root measuring 4.1 cm in diameter. No significant atherosclerotic calcifications at the aortic root. 2. Multiple right upper lobe subpleural nodules measuring up to 3 mm. If the patient is high risk, follow-up CT is optional at 12 months. If the patient is low risk, no follow-up is required. Dictated by Yeyo Birmingham M.D. (assistant to the vice president) bradley IDr. Lobito M.D. have personally reviewed and interpreted this examination/study. This report was electronically signed by Lobito URIAS M.D. ??on 12/21/2017 5:14 PM . Narrative 12/21/2017 5:14 PM CAMP[facility] HAND EXAMINATION: Computed tomography (CT) of the chest [...] noted in the spine. Procedure Note Niyah Urias MD - 01/16/2018 EXAMINATION: Computed tomography (CT) [...] is required. Dictated by Yeyo Birmingham M.D. (assistant to the vice president) without Dr. Lobito Jules M.D. have personally reviewed and interpreted thisexamination/study. This report was electronically signed by Lobito URIAS M.D. on12/21/2017 5:14 PM . Fabienne Cardona MD CT ORDERABLES * XR CHEST 2VW (12/21/2017 1:33 PM CAMP[facility] HAND) Anatomical Region Laterality Modality Chest Other Impressions 12/21/2017 3:42 PM CAMPGROUND HAND IMPRESSION: No acute pulmonary process. Dictated by Airam Gibson MD (assistant to the vice president). This report was approved ??by Airam Gibson ?? on 12/21/2017 2:46 PM . I, Dr. ARGENTINA MARTIN M.D. have personally reviewed and interpreted this examination/study. This report was electronically signed by ARGENTINA MARTIN M.D. ??on 12/21/2017 3:42 PM . Narrative 12/21/2017 3:42 PM CAMPGROUND HAND EXAMINATION: XR CHEST PA AND LATERAL HISTORY: [...] pulmonary process. Dictated by Airam Gibson MD (assistant to the vice president). This report was approved by Airam Gibson on 12/21/2017 2:46 PM . I, Dr. ARGENTINA MARTIN M.D. have personally reviewed and interpreted thisexamination/study. This report was electronically signed by ARGENTINA MARTIN M.D. on 12/21/20173:42 PM . Fabienne Cardona MD DIAGNOSTIC IMAGING O RDERABLES documented in this encounter Visit Diagnoses Diagnosis Atherosclerotic heart disease of tribe coronary artery without angina pectoris Coronary atherosclerosis of tribe coronary artery Essential (primary) hypertension Unspecified essential hypertension Encounter for other preprocedural examination documented in this encounter Care Teams Bed Manager Relationship Specialty Start Date End Date Lisy Olmedo MD PCP - General 04/20/09 05/09/22 documented as of this encounter
--- OUTSIDE RECORDS SUMMARY | 2024-10-11 19:47 | XMS_ITS | Encounter Summary ---
Author Organization [facility] [employer] Address [address] [place] [address] Care Team Providers Care Interior Decorator Paperhanging Name Role Phone Lisy Olmedo MD Primary Care Provide r Reason for Visit * Auth/Cert Specialty Diagnoses / Procedures Referred By Contac t Referred To Contact Diagnoses Diagnosis unknown coronary artery disease hypertension Procedures BYPASS GRAFT CORONARY ARTERY (CABG) Referral ID Status Reason Start Date Expiration Date Visits Re quested Visits Authorized [id number] 1 1 Encounter Details Date Type Department Care Team (Late st Contact Info) Description 01/24/2018 7:20 AM CDT - 01/24/2018 3:00 PM CDT Surgery [facility] [address] [place] [address] Fabienne Cardona MD [facility] [place] [address] Coronary artery bypass graft x 3 Surgery Details Date/Time Status Location OR Service Patient Class Case Class Case Type Trauma Case? 01/24/2018 7:20 AM Posted [facility] OR OR 10 Cardiac Surgery Reading Aide Admit Surgical Panel 1 Procedure LRB Anes Op Region Wound Class Comments Coronary artery bypass graft x 3 N/A General Chest Clean 76616, [id number] Surgeon Surgeon Role Service Panel Fabienne Cardona MD Primary Cardiac Surgery 1 Case Notes BCBS I25.10, I10 Special Needs ICU Supine PAT 12/21 12:00 documented in this encounter Social History Tobacco [...] Physician Discharge Summary Patient ID: Yaya Vazquez [id number] 57 y.o. 1960 Admit date: 01/24/2018 Discharge [...] status improved s/p 2 L of NS. [facility], cordis, A-line, Wires, meds, beltran, were d/c. [...] morning lab work and acceptance/insurance authorization to [facility]. 01/30/18 POD 6: Pt with BM yesterday. [...] losartan-hydroCHLOROthiazide 100-25 MG tablet Commonly known as: HYJAQUELIN Where to Get Your Medications These medications were sent to [facility] [id number] [id number] [phone] [id number] [facility] [address] ??? furosemide 40 MG tablet ??? metoprolol [...] Medicine Why: f/u as needed Contact information: [address] [facility] [address] Follow up with Follow up with provider . Follow up with Fabienne Cardona MD . Specialty: Cardiothoracic Vascular Surgery Why: February 13 at 09:45 Contact information: [address] [address] [facility] [address] Follow up with Nehemias Dennis MD . Why: February 22 at 03:15 pm at [address] [address], [place] [address] Contact information: [address] [facility] [address] Discharge Instructions ?? No lifting over 10 [...] may cover with dry gauze ?? Call [phone] and ask for the Cardiac Surgery Resident emergency services professional for shortness of breath or signs of [...] ask them during your visits. ?? 2015 Heroic. Information is for End User's use only and may not be sold, redistributed or otherwise used for commercial purposes. All illustrations and images included in CareNotes?? are the copyrighted property of [employer] or [employer]. The above information is an hearing aid repairer only. It is not intended as medical [...] include a car door or a vacuum school cleaner. ?? Do not drive while you are [...] refuse treatment. The above information is an hearing aid repairer only. It is not intended as medical advice for individual conditions or treatments. Talk to your doctor, nurse or pharmacist before following any medical regimen to see if it is safe and effective for you. ?? 2017 [employer] [place] Information is for End User's use only and may not be sold, redistributed or otherwise used for commercial purposes. All illustrations and images included in CareNotes?? are the copyrighted property of Intr[employer]Ever[employer] Inc. or [employer]. Heart Healthy Diet IMMIGRATION CASE WORKER: A heart healthy diet is an eating [...] is made with liquid vegetable oil. ?? Kirby-3 fat is found in certain fish, such [...] ask them during your visits. ?? 2017 [employer] [place] Information is for End User's use only and may not be sold, redistributed or otherwise used for commercial purposes. All illustrations and images included in CareNotes?? are the copyrighted property of [employer]. or [employer]. The above information is an hearing aid repairer only. It is not intended as medical [...] may cover with dry gauze ?? Call [phone] and ask for the Cardiac Surgery Resident emergency services professional for shortness of breath or signs of [...] ask them during your visits. ?? 2015 Heroic. Information is for End User's use only and may not be sold, redistributed or otherwise used for commercial purposes. All illustrations and images included in CareNotes?? are the copyrighted property of The [employer]. or [employer]. The above information is an hearing aid repairer only. It is not intended as medical [...] include a car door or a vacuum school cleaner. ?? Do not drive while you are [...] refuse treatment. The above information is an hearing aid repairer only. It is not intended as medical advice for individual conditions or treatments. Talk to your doctor, nurse or pharmacist before following any medical regimen to see if it is safe and effective for you. ?? 2017 [employer] [place] Information is for End User's use only and may not be sold, redistributed or otherwise used for commercial purposes. All illustrations and images included in CareNotes?? are the copyrighted property of A.D.A.M., Inc. or [employer]. Heart Healthy Diet IMMIGRATION CASE WORKER: A heart healthy diet is an eating [...] is made with liquid vegetable oil. ?? Kirby-3 fat is found in certain fish, such [...] ask them during your visits. ?? 2017 [employer] [place] Information is for End User's use only and may not be sold, redistributed or otherwise used for commercial purposes. All illustrations and images included in CareNotes?? are the copyrighted property of [employer]. or [employer]. The above information is an hearing aid repairer only. It is not intended as medical advice for individual conditions or treatments. Talk to your doctor, nurse or pharmacist before following any medical regimen to see if it is safe and effective for you. Furosemide (By mouth) Furosemide (dolj-YA-qd-mide) Treats fluid retention (edema) and high blood [...] pharmacist before using any other medicine, including zkwj-jku-hsidubx medicines, vitamins, and herbal products. ?? Some [...] may report side effects to FDA at 6-713-NBI-0555 ?? 2017 [employer] [place] Information is for End User's use only and may not be sold, redistributed or otherwise used for commercial purposes. The above information is an hearing aid repairer only. It is not intended as medical [...] pharmacist before using any other medicine, including rtsf-tvk-qjpzphb medicines, vitamins, and herbal products. ?? Some [...] may report side effects to FDA at 2-594-CEM-2164 ?? 2017 [employer] [place] Information is for End User's use only and may not be sold, redistributed or otherwise used for commercial purposes. The above information is an hearing aid repairer only. It is not intended as medical advice for individual conditions or treatments. Talk to your doctor, nurse or pharmacist before following any medical regimen to see if it is safe and effective for you. Oxycodone/Acetaminophen (By mouth) Acetaminophen (p-nxyc-c-MIN-oh-fen), Oxycodone Hydrochloride (au-b-QCM-done voo-ouez-PUNC-ben) Treats moderate to moderately severe pain. This [...] pharmacist before using any other medicine, including fwhs-khw-mosqjpz medicines, vitamins, and herbal products. ?? Do [...] disease (such as asthma, COPD), thyroid problems, Mario disease, pancreas or gallbladder problems, prostate problems, [...] may report side effects to FDA at 5-260-GNK-0556 ?? 2017 [employer] [place] Information is for End User's use only and may not be sold, redistributed or otherwise used for commercial purposes. The above information is an hearing aid repairer only. It is not intended as medical advice for individual conditions or treatments. Talk to your doctor, nurse or pharmacist before following any medical regimen to see if it is safe and effective for you. Polyethylene Glycol 3350 (By mouth) Polyethylene Glycol (unh-ao-YNU-i-delia GLYE-kol) Treats occasional constipation. Brand Name(s): Equate ClearLax, GaviLAX, Gialax, [facility] Clear Lax, [facility] Clearlax, Healthylax Polyethylene Glycol 3350, Laxative, Leader [...] pharmacist before using any other medicine, including qqjy-uud-sbvgrcx medicines, vitamins, and herbal products. Warnings While [...] may report side effects to FDA at 6-198-PXI-4670 ?? 2017 [employer] [place] Information is for End User's use only and may not be sold, redistributed or otherwise used for commercial purposes. The above information is an hearing aid repairer only. It is not intended as medical advice for individual conditions or treatments. Talk to your doctor, nurse or pharmacist before following any medical regimen to see if it is safe and effective for you. Metoprolol (By mouth) Metoprolol (cyp-dw-RHEL-lol) Treats high blood pressure, angina (chest pain), [...] pharmacist before using any other medicine, including mxcb-dkz-zhqtjfb medicines, vitamins, and herbal products. ?? Some [...] may report side effects to FDA at 3-291-XKK-4395 ?? 2016 [employer] [place] Information is for End User's use only and may not be sold, redistributed or otherwise used for commercial purposes. The above information is an hearing aid repairer only. It is not intended as medical [...] Comments: Pt discharged with C PT/OT/Nursing through [facility]. No further SW needs identified. NOAH Breaux 01/30/2018 2:21 PM [phone] * Renay Crhistiansen OT - 01/30/2018 2:20 PM CDT [facility] Physical Medicine and Rehabilitation Occupational Therapy Progress Note Patient: Yaya Vazquez Med Record Number: [id number] Date of : 1960 Age: 57 y.o. [...] ??good, safety education and cardiac education; met Speech Pathologist Goal:Patient to be independent/baseline with functional mobility and self care and be able to safely discharge to prior level of care If patient is discharged from the facility, this note serves as a discharge note if further occupational therapy visits did not occur. Following therapy session, patient left in patient bedside chair and with call light within reach. Renay Christiansen OTR/L * Evelyn Owens, PT - 01/30/2018 2:10 PM CDT [facility] Physical Medicine and Rehabilitation PhysicalTherapy Progress Note Patient: Yaya Vazquez Med Record Number: [id number] Date of : 1960 Age: 57 y.o. [...] assist and With rail indep/ MET ? Speech Pathologist Goal(s): Patient to discharge to appropriate next [...] Pt would like to go home with [facility] once medically cleared. SW submitted a [facility] referral to [facility]. SW to continue following. NOAH Breaux 01/30/2018 10:04 AM [phone] * Christi Wolff, OT - 01/29/2018 3:35 PM CDT [facility] Physical Medicine and Rehabilitation Occupational Therapy Progress Note Patient: Yaya Vazquez Med Record Number: [id number] Date of : 1960 Age: 57 y.o. [...] good, safety education and cardiac education; ongoing Speech Pathologist Goal:Patient to discharge to appropriate next level [...] Reed, PT - 01/29/2018 3:34 PM CDT [facility] Physical Medicine and Rehabilitation PhysicalTherapy Progress Note Patient: Yaya Vazquez [facility] Record Number: [id number] Date of : 1960 Age: 57 y.o. [...] stand by assist and With rail ? Assisted Goal(s): Patient to discharge to appropriate next [...] Cardona MD - 01/29/2018 2:14 PM CDT [facility] Cardiac Surgery Progress Note Admit: 01/24/2018 6:44 AM Date: January 29, 2018 Length of Stay: 5 Attending: Conner Blancas MD POD:5 Days Post-Op S/P: CABG x 3 (MUNIZ to LAD, Radial to OM, SVG to PDA) Private Solvent Process Extractor Operator: Nehemias Dennis PCP: Lisy Olmedo MD Referring Facility: [facility] SUBJECTIVE: Recent Events: 01/29/18 POD 5: Yesterday [...] morning lab work and acceptance/insurance authorization to [facility]. History and Hospital Course: Yaya Vazquez [...] status improved s/p 2 L of NS. [facility], cordis, A-line, Wires, meds, beltran, were d/c. [...] Drains:110] Date 01/28/18 07 - 01/29/18 0659 01/29/18699 - 01/30/18 0659 Shift 5641-0978 3424-1784 24 Hour Total 3264-7696 5393-1194 24 Hour Total I N T A [...] 1429 PHART 7.42 7.40 7.35 7.26* 7.27* [id number] 38 40 44 56* 50* PO2ART 82 102* 91 120* 122* ULK5HCC 24.3 24.6 23.5 24.5 22.7 BEART -0.1 [...] for D/C needs. Awaiting insurance auth via [employer] for [facility]. Per GRABIEL likely to be authorized tomorrow. Rosendo Fernandez, DIRECTOR OF CODING-RUSSIAN TEACHER 01/29/2018 2:15 PM As above. WBC 7.3 - yesterday's was 17.4 - likely spurious CBC sample as platelet count was also inconsistent with prior draws. Afebrile, denies diarrhea, abd pain; cultures NGTD, and incision without erythema. Plan DC once rehab authorized. Fabienne Cardona MD 01/29/2018 8:00 PM * Ny Reid COTA - 01/28/2018 3:28 PM CDT [facility] Department of Physical Medicine & Rehabilitation Progress Note Patient: Yaya Vazquez [facility] Record Number: [id number] Date of : 1960 Age: 57 y.o. 01/28/18 1500 Missed Visit Missed Visit Procedure in the room. Will continue to follow. Name of RN Mustapha Pt is currently having chest tubes removed in room. Will continue to follow. RICHARD Soto 01/28/2018 3:29 PM * Penny Gordon PT - 01/28/2018 2:46 PM CDT [facility] Physical Medicine and Rehabilitation PhysicalTherapy Progress Note Patient: Yaya Vazquez Med Record Number: [id number] Date of : 1960 Age: 57 y.o. [...] stand by assist and With rail ? Speech Pathologist Goal(s): Patient to discharge to appropriate next [...] placement and would prefer placement at [facility]. submitted an ARU referral and [facility] is able to accept pt pending insurance authorization. [facility] submitting for authorization through pt's insurance, [employer] DENISE, today. SW to continue following. NOAH Breaux 01/28/2018 10:48 AM [phone] * María Chacon MSW - 01/28/2018 9:34 AM CDT Care Coordination Initial Assessment Case Management screen completed, welcome letter given. Met with pt at bedside to complete an assessment an discuss discharge planning. Lives with Lives with:: Sister (Carol Vazquez (sister) [phone]) Pt's other sister, Jenn Mckee [phone], is another emergency contact for pt if needed. Prior Level of Functioning: Independent, no DME Discharge Plan: ARU vs [facility] vs HHC through [facility] Comments: PT/OT recommending ARU placement at this time. Pt is agreeable to recommendations, but isalso interested in [facility] or HHC through [facility] should PT/OT change their [...] PCP, action taken: Pharmacy benefit: Yes, has [place] BCBS. If no, action taken: If patient requires HHC at discharge, he/she requests: [facility]. Will continue to follow. For any questions or needs please contact: Furnace Setter Name/Phone number: NOAH Breaux, * Rosendo Fernandez, ROSE-RUSSIAN TEACHER - 01/28/2018 9:04 AM CDT [facility] Cardiac Surgery Progress Note Admit: 01/24/2018 6:44 AM Date: January 28, 2018 Length of Stay: 4 Attending: Conner Blancas MD POD:4 Days Post-Op S/P: CABG x 3 (MUNIZ to LAD, Radial to OM, SVG to PDA) Private Solvent Process Extractor Operator: Nehemias Dennis PCP: Lisy Olmedo MD Referring Facility: [facility] SUBJECTIVE: Recent Events: 01/28/18 POD 4: No [...] status improved s/p 2 L of NS. [facility], cordis, A-line, Wires, meds, beltran, were d/c. [...] Once magnesium sulfate 2 g Intravenous Once snvio-blc-lxdwqjyh 360 mL Rectal Once metoprolol tartrate 25 [...] (98-126)/(63-83) 124/70 Diet: DIET CARDIAC Is&Os: 01/27 07 - 01/28 0700 In: - Out: 2985 [Urine:2825; Drains:160] Date 01/27/18699 - 01/28/1865801/28/18699 - 01/29/18658 Shift 6048-6777 7080-0741 24 Hour Total 7175-2141 1581-8352 24 Hour Total I N T A [...] 1429 PHART 7.42 7.40 7.35 7.26* 7.27* [id number] 38 40 44 56* 50* PO2ART 82 102* 91 120* 122* [id number] 24.3 24.6 23.5 24.5 22.7 BEART -0.1 [...] given CT being removed today. Rosendo Fernandez, DIRECTOR OF CODING-RUSSIAN TEACHER 01/28/2018 10:39 AM * Fabienne Cardona MD - 01/27/2018 2:20 PM CDT [facility] Cardiac Surgery Progress Note Admit: 01/24/2018 6:44 AM Date: January 27, 2018 Length of Stay: 3 Attending: Conner Blancas MD POD:3 Days Post-Op S/P: CABG x 3 (MUNIZ to LAD, Radial to OM, SVG to PDA) Private Solvent Process Extractor Operator: Nehemias Dennis PCP: Lisy Olmedo MD Referring Facility: [facility] SUBJECTIVE: Recent Events: 01/27/18 POD 3: No [...] status improved s/p 2 L of NS. [facility], cordis, A-line, Wires, meds, beltran, were d/c. [...] (125-128)/(70-83) 125/77 CI: 2.1-3.3 SvO2: 60-75% PAS/PAD: 27-37/12-26 RA/CVP: 7-18 Diet: DIET CARDIAC Is&Os: 01/26 0701 - 01/27 0700 In: 520 [P.O.:520] Out: 4450 [Urine:4175; Drains:275] Date 01/26/18 07 - 01/27/18 0659 01/27/18 07 - 01/28/18 0659 Shift 0508-3561 9941-8612 24 Hour Total 6533-5761 0072-5721 24 Hour Total I N T A K E P.O. 520 520 Shift Total (mL/kg) 520 (3.8) 520 (3.9) O U T P U T Urine (mL/kg/hr) 1925 (1.2) 2250 (1.4) 4175 (1.3) 500 500 Drains 200 75 275 100 100 Shift Total (mL/kg) 2125 (15.7) 2325 (17.3) 4450 (33.1) 600 (4.5) 600 (4.5) NET -1605 -2325 -3930 -600 -600 Weight (kg) 135.4 134.5 [...] 1429 PHART 7.42 7.40 7.35 7.26* 7.27* [id number] 38 40 44 56* 50* PO2ART 82 102* 91 120* 122* [id number] 24.3 24.6 23.5 24.5 22.7 BEART -0.1 [...] Hernandez, PT - 01/26/2018 3:30 PM CDT [facility] Physical Medicine and Rehabilitation PhysicalTherapy Progress Note Patient: Yaya Vazquez Med Record Number: [id number] Date of : 1960 Age: 57 y.o. [...] stand by assist and With rail ? Speech Pathologist Goal(s): Patient to discharge to appropriate next level of inpatient care Update Treatment Plan: continue current plan If patient is discharged from the facility, this note serves as a discharge note if further physical therapy visits did not occur. Following therapy session, patient left in bed, with bed alarm on, with call light within reach andwith RNSage aware. Jodi Hernandez, PT 01/26/2018 * Fabienne Cardona MD - 01/26/2018 12:38 PM CDT [facility] Cardiac Surgery Progress Note Admit: 01/24/2018 6:44 AM Date: January 26, 2018 Length of Stay: 2 Attending: Conner Blancas MD POD:2 Days Post-Op S/P: CABG x 3 (MUNIZ to LAD, Radial to OM, SVG to PDA) Private Solvent Process Extractor Operator: Nehemias Dennis PCP: Lisy Olmedo MD Referring Facility: [facility] SUBJECTIVE: Recent Events: 01/26/18 POD 2: No acute events overnight. Yesterday, EKG was noted to have some ST changes, cardiology was consulted and they recommended an ECHO. ECHO was done with no wall motion abnormalities. Thepatient hemodynamic status improved s/p 2 L of NS. [facility], cordis, A-line, Wires, meds, beltran, were d/c. [...] [P.O.:600; I.V.:61] Out: 3075 [Urine:2600; Drains:475] Date 01/25/18 07 - 01/26/18 0659 01/26/18 0700 - 01/27/18 0659 Shift 3453-0843 5527-2342 24 Hour Total 1884-4689 3586-9796 24 Hour Total I N T A K E P.O. 600 600 I.V. (mL/kg/hr) 61 (0) 61 (0) Shift Total (mL/kg) 661 (4.9) 661 (4.9) O U T P U T Urine (mL/kg/hr) 1475 (0.9) 1200 (0.7) 2675 (0.8) 1725 1725 Drains 280 195 475 50 50 Shift Total (mL/kg) 1755 (13) 1395 (10.3) 3150 (23.3) 1775 (13.1) 1775 (13.1) NET -109 -1391 -7467 -1775 -1775 Weight (kg) 135.4 135.4 135.4 [...] 1429 PHART 7.42 7.40 7.35 7.26* 7.27* [id number] 38 40 44 56* 50* PO2ART 82 102* 91 120* 122* [id number] 24.3 24.6 23.5 24.5 22.7 BEART -0.1 [...] Wolff, OT - 01/25/2018 3:16 PM CDT [facility] Physical Medicine and Rehabilitation Occupational Therapy Initial Evaluation Note Patient: Yaya Vazquez Med Record Number: [id number] Date of : 1960 Age: 57 y.o. [...] Precautions: IV's: Peripheral line, Arterial line and [facility] [place] Quyen, Catheter, Chest tube (2) and Oxygen [...] Education: good, safety education and cardiac educatiojn Speech Pathologist Goal: Patient to discharge to appropriate next [...] rehab cues written on white board. Christi Wolff, OT 01/25/2018 * Penny Gordon, PT - 01/25/2018 2:12 PM CDT [facility] Physical Medicine and Rehabilitation PhysicalTherapy Initial Evaluation Note Patient: Yaya Vazquez Med Record Number: [id number] Date of : 1960 Age: 57 y.o. [...] chair, NAD Precautions: IV's: Arterial line and [facility] [place] Quyen, Catheter, Chest tube and Oxygen Skin, [...] With stand by assist and With rail Assisted Goal(s): Patient to discharge to appropriate next [...] later time. NOAH Breaux 01/25/2018 11:10 AM [phone] * Penny Gordon PT - 01/25/2018 10:09 AM CDT [facility] Department of Physical Medicine & Rehabilitation Progress Note Patient: Yaya Vazquez [facility] Record Number: [id number] Date of : 1960 Age: 57 y.o. 01/25/18 1009 Missed Visit Missed Visit RN Cancel Name of RN Adriana Will check back in PM. Penny Gordon, PT 01/25/2018 10:09 AM * Christi Wolff, OT - 01/25/2018 10:03 AM CDT [facility] Department of Physical Medicine & Rehabilitation Progress Note Patient: Yaya Vazquez [facility] Record Number: [id number] Date of : 1960 Age: 57 y.o. 01/25/18 1000 Missed Visit Missed Visit RN Cancel Name of RN Adriana Per RN, hold therapy this AM, but okay to check back in PM. OT will continue to follow. * Mary Colindres PA-C - 01/25/2018 10:02 AM CDT [facility] Cardiac Surgery Progress Note Admit: 01/24/2018 6:44 AM Date: January 25, 2018 Length of Stay: 1 Attending: Fabienne Cardona MD POD:1 Day Post-Op S/P: CABG x 3 (MUNIZ to LAD, Radial to OM, SVG to PDA) Private Solvent Process Extractor Operator: Nehemias Dennis PCP: Lisy Olmedo MD Referring Facility: [facility] SUBJECTIVE: Recent Events: 01/25/17 POD 1: The [...] 60 % CI: 2.1-3.3 SvO2: 60-75% PAS/PAD: /10-09 RA/CVP: 05-01 Diet: DIET DIABETIC CONSIST CARB Is&Os: 01/24 0701 - 01/25 0700 In: 3089.6 [I.V.:3089.6] Out: 3135 [Urine:2475; Drains:660] Date 01/24/18699 - 01/25/1865801/25/18699 - 01/26/18 0659 Shift 8203-0023 8333-8950 24 Hour Total 4513-2377 1993-8395 24 Hour Total I N T A [...] 1429 PHART 7.42 7.40 7.35 7.26* 7.27* [id number] 38 40 44 56* 50* PO2ART 82 102* 91 120* 122* [id number] 24.3 24.6 23.5 24.5 22.7 BEART -0.1 [...] betadine daily and PRN Lines: - D/C: [facility] [place], cordis, A-line, beltran, pacing wires, and Mediastinal CT's. - Continue: PIV's, pleural CT Prophy: - VTE: SCD's and sq heparin - GI: Protonix - SCIP: will complete today - PNA: IS, nebs, OOB PT/OT: ordered Dispo: Possible transfer to floor later today if able to wean off pressors and remains hemodynamically stable, SW consulted for D/C needs Mary Colindres PA-C 01/25/2018 10:02 AM EKG was noted to have thiago ST changes, cardiology was consulted they recommended an ECHO. ECHO was done with no wall motion abnormalities. The patient hemodynamic status improved s/p 1.5 L of NS. [facility], cordis, A-line were d/c. Transfer to the floor. Mary Colindres PA-C 01/25/2018 3:55 PM * Adriana Santana, ZACHARY - 01/25/2018 9:52 AM CDT Problem: Low [...] Emmy Mckeon - 01/24/2018 8:26 AM CDT Utilities And Maintenance Supervisor responded to referral from [facility] to complete Durable Power of Electronic Coils Supervisor for patient. Chaplainvisited with patient and two sisters Carol & Jenn at bedside. Utilities And Maintenance Supervisor completed DPOA for patient, notarized by Niru SPAIN in ED, made copies for all parties, and placed original in patient's chart. Utilities And Maintenance Supervisor made patient and family aware of availability of pastoral care as needed. OR/OR 01/24/18 0730 01/24/18 0745 01/24/18 0800 Visit Type Assessment Date 01/24/18 -- -- Utilities And Maintenance Supervisor Visiting Patient [place]o -- -- Pastoral Care Visit Type Advanced Directive Consult Initial Visit Order Response Encounter Type Patient and Family;Consult with Staff -- -- documented in this encounter H&P Notes * Kavon Daley MD - 01/24/2018 9:44 AM CDT [facility] Short Pre-Procedure History and Physical Patient: Yaya [...] oz, SpO2 96 %. Kavon Daley MD, * Fabienne Cardona MD - 01/23/2018 9:07 [...] verify information and patient agrees to allow [facility] to follow upon discharge. Thank you for this referral. Sergey Archer, RN, MSN Hospital Train Braker [facility] [phone] documented in this encounter Nursing Notes * [...] the right arm SURGEON: Fabienne Cardona MD NIGHT WAREHOUSE SELECTOR: CHERIE Johnson SECOND RAIL TRANSPORTATION OPERATOR: Caryn Willard PA-C ANESTHESIA: General. ANESTHESIOLOGIST: Kel Granger M.D. OPERATIVE FINDINGS: 1. The left internal mammary artery had adequate flow. The radial artery and saphenous vein were ofgood quality and caliber for use as bypass conduits 2. Quantitative flows at the end of the case were LAD 47 ml/min, RCA 70 ml/min, OM 41 ml/min SPECIMENS:None DRAINS: 36-Chadian mediastinal chest tubes x2, 28-Chadian left pleural tube. CONDITION AT CONCLUSION OF [...] akbar with a running 7-0 Prolene. A hotel director was given and the aortic cross-clamp released.Temporary [...] * Brief Op Note - Adeola Traore APRN-AZEB - 01/24/2018 1:35 PM CDT Brief Operative Note CORONARY ARTERY BYPASS GRAFTING X 3, RIGHT ENDOSCOPIC VEIN HARVEST, RIGHT RADIAL HARVEST Patient Name: Yaya Vazquez Date of Service: 01/24/2018 Pre-Op Diagnosis: Coronary Artery Disease, HTN Post-Op Diagnosis: Same Surgeon(s) and Role: * Fabienne Cardona MD - Primary Announcer(s): CLARIBEL Johnson, Caryn Zhao PA-C Anesthesia Type: [...] 36 FR Anterior Mediastinal (Active) Specimen(s): None CLARIBEL Grande, TANK STORAGE SUPERVISOR * Brief Op Note - Kavon Daley [...] st Contact Info) Description 10/20/2024 8:00 AM PARTITION SETTER Office Visit [facility] - Family Medicine [address] [phone] Kiana Cole MD 604 [place] [address] 11/28/2024 9:00 AM PARTITION SETTER Office Visit [facility] - Neurology [address] [facility] [place] [id number] Aline Finch MD [address] [facility] [place] [address] 02/10/2025 10:00 AM CDT Office Visit [facility] - Cardiology [address] 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) GLUCOSE [...] - 115 mg/dL 01/30/2018 6:05 PM CDT [facility] Blood BLOOD SPECIMEN / Unknown 01/30/2018 5:50 PM CDT 01/30/2018 6:05 PM CDT [facility] - 01/30/2018 6:05 PM CDT Buck Presser: TEODORA ??RILEY Conner Blancas MD LAB - POINT OF CARE ORDERABLES Performing Organization Address City/[facility]/ZIP Co de Phone Number [address] [phone] * (ABNORMAL) GLUCOSE - POINT OF CARE (01/30/2018 11:22 AM CDT) Glucose WB/POC 138(H) 70 - 115 mg/dL 01/30/2018 11:42 AM CDT [facility] Blood BLOOD SPECIMEN / Unknown 01/30/2018 11:22 AM CDT 01/30/2018 11:42 AM CDT [facility] - 01/30/2018 11:42 AM CDT Buck Presser: ADRIANA ??RIVKA Conner Blancas MD LAB - POINT OF CARE ORDERABLES [address] [phone] * (ABNORMAL) GLUCOSE - POINT OF CARE (01/30/2018 6:38 AM CDT) Glucose WB/POC 148(H) 70 - 115 mg/dL 01/30/2018 6:51 AM CDT [facility] Blood BLOOD SPECIMEN / Unknown 01/30/2018 6:38 AM CDT 01/30/2018 6:51 AM CDT [facility] - 01/30/2018 6:51 AM CDT Buck Presser: TRAY ??FELIPE Conner Blancas MD LAB - POINT OF CARE ORDERABLES Performing Organization Address [facility]/ZIP Co de Phone Number [address] [phone] * (ABNORMAL) GLUCOSE - POINT OF CARE (01/29/2018 8:53 PM CDT) Glucose WB/POC 194(H) 70 - 115 mg/dL 01/29/2018 9:06 PM CDT [facility] Blood BLOOD SPECIMEN / Unknown 01/29/2018 8:53 PM CDT 01/29/2018 9:06 PM CDT [facility] - 01/29/2018 9:06 PM CDT Buck Presser: TRAY ??FELIPE Conner Blancas MD LAB - POINT OF CARE ORDERABLES Performing Organization Address [facility]/ZIP Co de Phone Number [address] [phone] * (ABNORMAL) GLUCOSE - POINT OF CARE (01/29/2018 4:12 PM CDT) Glucose WB/POC 121(H) 70 - 115 mg/dL 01/29/2018 4:38 PM CDT [facility] Blood BLOOD SPECIMEN / Unknown 01/29/2018 4:12 PM CDT 01/29/2018 4:38 PM CDT [facility] - 01/29/2018 4:38 PM CDT Buck Presser: MARU ??SALINAS Conner Blancas MD LAB - POINT OF CARE ORDERABLES [address] [phone] * (ABNORMAL) GLUCOSE - POINT OF CARE (01/29/2018 11:11 AM CDT) Glucose WB/POC 186(H) 70 - 115 mg/dL 01/29/2018 11:48 AM CDT [facility] Blood BLOOD SPECIMEN / Unknown 01/29/2018 11:11 AM CDT 01/29/2018 11:48 AM CDT Narrative [facility] - 01/29/2018 11:48 AM CDT Buck Presser: MARU ??SALINAS Conner Blancas MD LAB - POINT OF CARE ORDERABLES Performing Organization Address [facility]/ZIP Co de Phone Number [address] [phone] * (ABNORMAL) GLUCOSE - POINT OF CARE (01/29/2018 6:42 AM CDT) Pathologist [facility] Glucose WB/POC 193(H) 70 - 115 mg/dL 01/29/2018 6:55 AM CDT [facility] Blood BLOOD SPECIMEN / Unknown 01/29/2018 6:42 AM CDT 01/29/2018 6:55 AM CDT Narrative [facility] - 01/29/2018 6:55 AM CDT Buck Presser: TRAY ??FELIPE Conner Blancas MD LAB - POINT OF CARE ORDERABLES Performing Organization Address [facility]/ZIP Co de Phone Number [address] [phone] * (ABNORMAL) CBC W/O DIFFERENTIAL (01/29/2018 6:20 AM CDT) WBC 7.3 3.5 - 10.5 10? 3 /uL 01/29/2018 7:28 AM T [facility] Comment:Confirmed by repeat analysis. RBC 3.11(L) 4.30 - 5.70 10? 6 /uL 01/29/2018 7:28 AM T [facility] Hemoglobin 8.8(L) 13.5 - 17.5 g/dL 01/29/2018 7:28 AM [facility] Hematocrit 27.7(L) 39.0 - 50.0 % 01/29/2018 7:28 AM [facility] MCV 89.1 81.0 - 97.0 fL 01/29/2018 7:28 AM [facility] MCH 28.3 28.0 - 34.0 pg 01/29/2018 7:28 AM [facility] MCHC 31.8(L) 32.0 - 36.0 g/dL 01/29/2018 7:28 AM [facility] Platelet Count 168 150 - 400 10? 3 /uL 01/29/2018 7:28 AM [facility] RDW-SD 51.6(H) 36.0 - 50.0 fL 01/29/2018 7:28 AM [facility] RDW-CV 16.1(H) 11.2 - 14.8 % 01/29/2018 7:28 AM [facility] MPV 9.2(L) 9.3 - 12.8 fL 01/29/2018 7:28 AM [facility] nRBC Absolute 0.00 0 10? 3 /uL 01/29/2018 7:28 AM [facility] nRBC Auto 0.0 0 /100 WBC 01/29/2018 7:28 AM [facility] Blood BLOOD SPECIMEN / Unknown Venipuncture / Unknown 01/29/2018 6:20 AM CDT 01/29/2018 6:42 AM CDT Rosendo Fernandez DIRECTOR OF CODING-RUSSIAN TEACHER LAB - HEMATO LOGY ORDERABLES [address] [phone] * (ABNORMAL) BASIC METABOLIC PANEL (CALCIUM TOTAL) (01/29/2018 6:20 AM CDT) BUN 12 7 - 26 mg/dL 01/29/2018 7:03 AM [facility] Creatinine 1.0 0.6 - 1.2 mg/dL 01/29/2018 7:03 AM [facility] Sodium 136 136 - 145 mmol/L 01/29/2018 7:03 AM [facility] Potassium 3.9 3.5 - 4.5 mmol/L 01/29/2018 7:03 AM [facility] Chloride 97(L) 98 - 107 mmol/L 01/29/2018 7:03 AM [facility] CO2 26 22 - 29 mmol/L 01/29/2018 7:03 AM [facility] Glucose 170(H) 70 - 115 mg/dL 01/29/2018 7:03 AM [facility] Calcium 9.1 8.4 - 10.2 mg/dL 01/29/2018 7:03 AM [facility] Anion Gap 17 8 - 18 01/29/2018 7:03 AM [facility] BUN/Creatinine Ratio 12 7 - 23 01/29/2018 7:03 AM [facility] Osmolality Calculated 286 270 - 300 mOsm/kg 01/29/2018 7:03 AM [facility] eGFR >60 >60 mL/min/1.7 3 m2 01/29/2018 7:03 AM [facility] Blood BLOOD SPECIMEN / Unknown Venipuncture / Unknown 01/29/2018 6:20 AM CDT 01/29/2018 6:42 AM CDT Mary Colindres PA-C LAB - CHEMISTRY ORDERABLES Performing Organization Address City/[facility]/ZIP Co de Phone Number [address] [phone] * MAGNESIUM BLOOD (01/29/2018 6:20 AM CDT) Magnesium 1.8 1.6 - 2.6 mg/dL 01/29/2018 7:03 AM [facility] Blood BLOOD SPECIMEN / Unknown Venipuncture / Unknown 01/29/2018 6:20 AM CDT 01/29/2018 6:42 AM CDT Mary Colindres PA-C LAB - CHEMISTRY ORDERABLES [facility] [address] [phone] * PHOSPHORUS BLOOD (01/29/2018 6:20 AM CDT) Phosphorus 3.0 2.3 - 4.7 mg/dL 01/29/2018 7:03 AM CDT [facility] Blood BLOOD SPECIMEN / Unknown Venipuncture / Unknown 01/29/2018 6:20 AM CDT 01/29/2018 6:42 AM CDT Mary Colindres PA-C LAB - CHEMISTRY ORDERABLES [address] [phone] * XR CHEST 1VW (01/29/2018 6:04 AM [...] is intact. Dictated by Yeyo Birmingham MD (residential support worker). I, Dr. SAL DOHERTY have personally reviewed [...] is intact. Dictated by Yeyo Birmingham MD (residential support worker). I, Dr. SAL DOHERTY have personally reviewed and interpreted this examination/study. This report was electronically signed by SAL DOHERTY on 01/29/2018 1:35 PM . Rosendo Fernandez DIRECTOR OF CODING-RUSSIAN TEACHER DIAGNOSTIC I MAGING ORDERABLES * (ABNORMAL) GLUCOSE - POINT OF CARE (01/28/2018 9:38 PM CDT) [facility] Glucose WB/POC 155(H) 70 - 115 mg/dL 01/28/2018 9:51 PM CDT [facility] Blood BLOOD SPECIMEN / Unknown 01/28/2018 9:38 PM CDT 01/28/2018 9:51 PM CDT Narrative [facility] - 01/28/2018 9:51 PM CDT Buck Presser: LEGGINS ??LENAY Conner Blancas MD LAB - POINT OF CARE ORDERABLES Performing Organization Address City/[facility]/ZIP Co de Phone Number [facility] [address] [place] [address], [facility] [phone] * CULTURE URINE (01/28/2018 9:35 PM CDT) [facility] Culture Urine No growth (<1,000 CFU/mL) VALERIA 01/30/2018 2:06 PM CDT [facility] Urine URINE SPECIMEN OBTAINED BY CLEAN CATCH PROCEDURE / Unknown Collection / Unknown 01/28/2018 9:35 PM CDT 01/28/2018 9:35 PM CDT Rosendo Fernandez DIRECTOR OF CODING-RUSSIAN TEACHER LAB - MICROB IOLOGY ORDERABLES [facility] [address] [place] [address], [facility] [phone] * URINALYSIS DIPSTICK AUTO (01/28/2018 9:35 PM CDT) Color UA Yellow Straw, Yellow, Colorless, Light Yellow 01/28/2018 9:50 PM CDT [facility] Clarity UA Clear Clear 01/28/2018 9:50 PM CDT [facility] Specific Henning UA 1.015 1.001 - 1.030 01/28/2018 9:50 PM CDT [facility] pH UA 5.0 5.0 - 8.0 01/28/2018 9:50 PM T [facility] Protein UA Negative <=20 mg/dL 01/28/2018 9:50 PM CDT [facility] Glucose UA Negative Negative mg/dL 01/28/2018 9:50 PM CDT [facility] Ketone UA Negative Negative mg/dL 01/28/2018 9:50 PM CDT [facility] Bilirubin UA Negative Negative mg/dL 01/28/2018 9:50 PM CDT [facility] Blood UA Negative Negative 01/28/2018 9:50 PM T [facility] Nitrite UA Negative Negative 01/28/2018 9:50 PM T [facility] Leukocyte Esterase Negative Negative 01/28/2018 9:50 PM T [facility] Urobilinogen UA <2.0 <2.0 mg/dL 8 9:50 PM T [facility] Urine URINE SPECIMEN OBTAINED BY CLEAN CATCH PROCEDURE / Unknown Collection / Unknown 01/28/2018 9:35 PM CDT 01/28/2018 9:35 PM CDT Rosendo Fernandez DIRECTOR OF CODING-RUSSIAN TEACHER LAB - URINAL YSIS ORDERABLES [address] [phone] * (ABNORMAL) GLUCOSE - POINT OF CARE (01/28/2018 5:24 PM CDT) Glucose WB/POC 124(H) 70 - 115 mg/dL 01/28/2018 5:55 PM CDT [facility] Blood BLOOD SPECIMEN / Unknown 01/28/2018 5:24 PM CDT 01/28/2018 5:55 PM CDT Narrative [facility] - 01/28/2018 5:55 PM CDT Buck Presser: REYNALDO ??HELEN Conner Blancas MD LAB - POINT OF CARE ORDERABLES [facility] [address] [place] [address], [facility] [phone] * (ABNORMAL) GLUCOSE - POINT OF CARE (01/28/2018 4:48 PM CDT) Glucose WB/POC 140(H) 70 - 115 mg/dL 01/28/2018 5:16 PM CDT [facility] Blood BLOOD SPECIMEN / Unknown 01/28/2018 4:48 PM CDT 01/28/2018 5:16 PM CDT Narrative [facility] - 01/28/2018 5:16 PM CDT Buck Presser: MAURA ??ENRRIQUE Conner Blancas MD LAB - POINT OF CARE ORDERABLES [facility] [address] [place] [address], [facility] [phone] * CULTURE BLOOD (01/28/2018 2:27 PM CDT) Culture No growth day 5 VALERIA 02/02/2018 8:00 PM CDT [facility] Blood PERIPHERAL BLOOD / Unknown 01/28/2018 2:27 PM CDT 01/28/2018 3:04 PM CDT Rosendo Fernandez DIRECTOR OF CODING-RUSSIAN TEACHER LAB - MICROB IOLOGY ORDERABLES [facility] [address] [place] [address], [facility] [phone] * CULTURE BLOOD (01/28/2018 2:15 PM CDT) Culture No growth day 5 VALERIA 02/02/2018 8:00 PM CDT [facility] Blood PERIPHERAL BLOOD / Unknown 01/28/2018 2:15 PM CDT 01/28/2018 3:04 PM CDT Rosendo Fernandez DIRECTOR OF CODING-RUSSIAN TEACHER LAB - MICROB IOLOGY ORDERABLES [facility] MICRO[facility] [address] [place] [address], [facility] [phone] * (ABNORMAL) GLUCOSE - POINT OF CARE (01/28/2018 12:13 PM CDT) Glucose WB/POC 129(H) 70 - 115 mg/dL 01/28/2018 12:36 PM CDT [facility] Blood BLOOD SPECIMEN / Unknown 01/28/2018 12:13 PM CDT 01/28/2018 12:36 PM CDT Narrative [facility] - 01/28/2018 12:36 PM CDT Buck Presser: MAURA ??ENRRIQUE Conner Blancas MD LAB - POINT OF CARE ORDERABLES [facility] [address] [place] [address], [facility] [phone] * XR CHEST 1VW (01/28/2018 10:37 AM [...] was dictated by Seamus Farias M.D. (resident). I, Dr. Lobito VAZQUEZ M.D. have personally [...] on 01/29/2018 1:48 PM . Rosendo Fernandez DIRECTOR OF CODING-RUSSIAN TEACHER DIAGNOSTIC I MAGING ORDERABLES * (ABNORMAL) CBC W/O DIFFERENTIAL (01/28/2018 9:17 AM CDT) WBC 17.4(H) 3.5 - 10.5 10? 3 /uL 01/28/2018 10:03 AM [facility] Comment:All CBC parameters h ave been checked. RBC 3.05(L) 4.30 - 5.70 10? 6 /uL 01/28/2018 10:03 AM [facility] Hemoglobin 8.7(L) 13.5 - 17.5 g/dL 01/28/2018 10:03 AM [facility] Hematocrit 28.5(L) 39.0 - 50.0 % 01/28/2018 10:03 AM [facility] MCV 93.4 81.0 - 97.0 fL 01/28/2018 10:03 AM [facility] MCH 28.5 28.0 - 34.0 pg 01/28/2018 10:03 AM [facility] MCHC 30.5(L) 32.0 - 36.0 g/dL 01/28/2018 10:03 AM [facility] Platelet Count 239 150 - 400 10? 3 /uL 01/28/2018 10:03 AM [facility] RDW-SD 60.4(H) 36.0 - 50.0 fL 01/28/2018 10:03 AM [facility] RDW-CV 18.7(H) 11.2 - 14.8 % 01/28/2018 10:03 AM [facility] MPV 12.4 9.3 - 12.8 fL 01/28/2018 10:03 AM [facility] Blood BLOOD SPECIMEN / Unknown Lab Venipuncture / Unknown 01/28/2018 9:17 AM CDT 01/28/2018 9:36 AM CDT Rosendo Fernandez APRN-RUSSIAN TEACHER LAB - HEMATO LOGY ORDERABLES [address] [phone] * (ABNORMAL) GLUCOSE - POINT OF CARE (01/28/2018 7:35 AM CDT) Pathologist [facility] Glucose WB/POC 157(H) 70 - 115 mg/dL 01/28/2018 7:53 AM T [facility] Blood BLOOD SPECIMEN / Unknown 01/28/2018 7:35 AM CDT 01/28/2018 7:53 AM CDT Narrative [facility] - 01/28/2018 7:53 AM CDT Buck Presser: RFANCIS ??SAGE Conner Blancas MD LAB - POINT OF CARE ORDERABLES Performing Organization Address City/[facility]/ZIP Co de Phone Number [address] [phone] * (ABNORMAL) BASIC METABOLIC PANEL (CALCIUM TOTAL) (01/28/2018 6:55 AM CDT) BUN 9 7 - 26 mg/dL 01/28/2018 7:50 AM [facility] Creatinine 0.9 0.6 - 1.2 mg/dL 01/28/2018 7:50 AM [facility] Sodium 136 136 - 145 mmol/L 01/28/2018 7:50 AM [facility] Potassium 3.3(L) 3.5 - 4.5 mmol/L 01/28/2018 7:50 AM [facility] Chloride 97(L) 98 - 107 mmol/L 01/28/2018 7:50 AM [facility] CO2 30(H) 22 - 29 mmol/L 01/28/2018 7:50 AM [facility] Glucose 144(H) 70 - 115 mg/dL 01/28/2018 7:50 AM [facility] Calcium 8.7 8.4 - 10.2 mg/dL 01/28/2018 7:50 AM [facility] Anion Gap 12 8 - 18 01/28/2018 7:50 AM [facility] BUN/Creatinine Ratio 10 7 - 23 01/28/2018 7:50 AM [facility] Osmolality Calculated 283 270 - 300 mOsm/kg 01/28/2018 7:50 AM [facility] eGFR >60 >60 mL/min/1.7 3 m2 01/28/2018 7:50 AM [facility] Blood BLOOD SPECIMEN / Unknown Venipuncture / Unknown 01/28/2018 6:55 AM CDT 01/28/2018 7:07 AM CDT Mary Colindres PA-C LAB - CHEMISTRY ORDERABLES Performing Organization Address City/State/[facility] Co de Phone Number [address] [phone] * MAGNESIUM BLOOD (01/28/2018 6:55 AM CDT) Magnesium 1.6 1.6 - 2.6 mg/dL 01/28/2018 7:50 AM [facility] Blood BLOOD SPECIMEN / Unknown Venipuncture / Unknown 01/28/2018 6:55 AM CDT 01/28/2018 7:07 AM CDT Mary Colindres PA-C LAB - CHEMISTRY ORDERABLES Performing Organization Address City/[facility]/ZIP Co de Phone Number [address] [phone] * PHOSPHORUS BLOOD (01/28/2018 6:55 AM CDT) Phosphorus 3.6 2.3 - 4.7 mg/dL 01/28/2018 7:50 AM CDT [facility] Blood BLOOD SPECIMEN / Unknown Venipuncture / Unknown 01/28/2018 6:55 AM CDT 01/28/2018 7:07 AM CDT Mary Colindres PA-C LAB - CHEMISTRY ORDERABLES Performing Organization Address [facility]/ZIP Co de Phone Number [address] [phone] * (ABNORMAL) GLUCOSE - POINT OF CARE (01/27/2018 9:38 PM CDT) Glucose WB/POC 184(H) 70 - 115 mg/dL 01/27/2018 10:02 PM CDT [facility] Blood BLOOD SPECIMEN / Unknown 01/27/2018 9:38 PM CDT 01/27/2018 10:01 PM CDT [facility] - 01/27/2018 10:02 PM CDT Buck Presser: WALTER ??LENA Conner Blancas MD LAB - POINT OF CARE ORDERABLES [address] [phone] * (ABNORMAL) GLUCOSE - POINT OF CARE (01/27/2018 5:22 PM CDT) Glucose WB/POC 123(H) 70 - 115 mg/dL 01/27/2018 5:38 PM CDT [facility] Blood BLOOD SPECIMEN / Unknown 01/27/2018 5:22 PM CDT 01/27/2018 5:38 PM CDT [facility] - 01/27/2018 5:38 PM CDT Buck Presser: DEREJE ?BENJAMIN Conner Blancas MD LAB - POINT OF CARE ORDERABLES Performing Organization Address [facility] Co de Phone Number [address] [phone] * (ABNORMAL) GLUCOSE - POINT OF CARE (01/27/2018 11:38 AM CDT) Glucose WB/POC 146(H) 70 - 115 mg/dL 01/27/2018 12:20 PM CDT [facility] Blood BLOOD SPECIMEN / Unknown 01/27/2018 11:38 AM CDT 01/27/2018 12:20 PM CDT [facility] - 01/27/2018 12:20 PM CDT Buck Presser: DEREJE ??ROBERTO Conner Blancas MD LAB - POINT OF CARE ORDERABLES Performing Organization Address [facility] Co de Phone Number [address] [phone] * (ABNORMAL) GLUCOSE - POINT OF CARE (01/27/2018 7:37 AM CDT) Glucose WB/POC 212(H) 70 - 115 mg/dL 01/27/2018 8:51 AM CDT [facility] Blood BLOOD SPECIMEN / Unknown 01/27/2018 7:37 AM CDT 01/27/2018 8:51 AM CDT [facility] - 01/27/2018 8:51 AM CDT Buck Presser: DEREJE ??ROBERTO Conner Blancas MD LAB - POINT OF CARE ORDERABLES Performing Organization Address [facility]/ZIP Co de Phone Number [address] [phone] * (ABNORMAL) CBC W/O DIFFERENTIAL (01/27/2018 6:54 AM CDT) WBC 9.4 3.5 - 10.5 10? 3 /uL 01/27/2018 8:34 AM [facility] RBC 3.02(L) 4.30 - 5.70 10? 6 /uL 01/27/2018 8:34 AM [facility] Hemoglobin 8.5(L) 13.5 - 17.5 g/dL 01/27/2018 8:34 AM [facility] Hematocrit 27.2(L) 39.0 - 50.0 % 01/27/2018 8:34 AM [facility] MCV 90.1 81.0 - 97.0 fL 01/27/2018 8:34 AM [facility] MCH 28.1 28.0 - 34.0 pg 01/27/2018 8:34 AM [facility] MCHC 31.3(L) 32.0 - 36.0 g/dL 01/27/2018 8:34 AM [facility] Platelet Count 143(L) 150 - 400 10? 3 /uL 01/27/2018 8:34 AM [facility] RDW-SD 54.2(H) 36.0 - 50.0 fL 01/27/2018 8:34 AM [facility] RDW-CV 16.6(H) 11.2 - 14.8 % 01/27/2018 8:34 AM [facility] MPV 9.5 9.3 - 12.8 fL 01/27/2018 8:34 AM [facility] Blood BLOOD SPECIMEN / Unknown Lab Venipuncture / Unknown 01/27/2018 6:54 AM CDT 01/27/2018 8:31 AM T Ethan Hancock MD LAB - HEMATOLOGY ORD ERABLES [address] [phone] * (ABNORMAL) BASIC METABOLIC PANEL (CALCIUM TOTAL) (01/27/2018 6:54 AM CDT) BUN 8 7 - 26 mg/dL 01/27/2018 8:53 AM [facility] Creatinine 0.9 0.6 - 1.2 mg/dL 01/27/2018 8:53 AM [facility] Sodium 138 136 - 145 mmol/L 01/27/2018 8:53 AM [facility] Potassium 3.4(L) 3.5 - 4.5 mmol/L 01/27/2018 8:53 AM [facility] Chloride 100 98 - 107 mmol/L 01/27/2018 8:53 AM [facility] CO2 26 22 - 29 mmol/L 01/27/2018 8:53 AM [facility] Glucose 129(H) 70 - 115 mg/dL 01/27/2018 8:53 AM [facility] Calcium 9.1 8.4 - 10.2 mg/dL 01/27/2018 8:53 AM [facility] Anion Gap 15 8 - 18 01/27/2018 8:53 AM [facility] BUN/Creatinine Ratio 9 7 - 23 01/27/2018 8:53 AM [facility] Osmolality Calculated 286 270 - 300 mOsm/kg 01/27/2018 8:53 AM [facility] eGFR >60 >60 mL/min/1.7 3 m2 01/27/2018 8:53 AM [facility] Blood BLOOD SPECIMEN / Unknown Lab Venipuncture / Unknown 01/27/2018 6:54 AM CDT 01/27/2018 8:31 AM CDT Mary Colindres PA-C LAB - CHEMISTRY ORDERABLES [address] [phone] * (ABNORMAL) MAGNESIUM BLOOD (01/27/2018 6:54 AM CDT) Magnesium 1.2(L) 1.6 - 2.6 mg/dL 01/27/2018 9:14 AM [facility] Blood BLOOD SPECIMEN / Unknown Lab Venipuncture / Unknown 01/27/2018 6:54 AM CDT 01/27/2018 8:31 AM CDT Mary Colindres PA-C LAB - CHEMISTRY ORDERABLES [place] [address] [place] [address], [facility] [phone] * PHOSPHORUS BLOOD (01/27/2018 6:54 AM CDT) Phosphorus 3.7 2.3 - 4.7 mg/dL 01/27/2018 8:53 AM CDT [facility] Blood BLOOD SPECIMEN / Unknown Lab Venipuncture / Unknown 01/27/2018 6:54 AM CDT 01/27/2018 8:31 AM CDT Mary Colindres PA-C LAB - CHEMISTRY ORDERABLES [facility] [address] [place] [address], [facility] [phone] * XR CHEST 1VW (01/27/2018 6:22 AM [...] remains enlarged. Dictated by Oracio Martinez M.D. ([employer]) I, Dr. RAFY VINSON MD have personally [...] remains enlarged. Dictated by Oracio Martinez M.D. ([employer]) I, Dr. RAFY VINSON MD have personally reviewed and interpreted this examination/study. This report was electronically signed by RAFY VINSON MD on01/27/2018 1:32 PM . Ethan Hancock MD DIAGNOSTIC IMAGING O RDERABLES * (ABNORMAL) GLUCOSE - POINT OF CARE (01/26/2018 8:04 PM CDT) Glucose WB/POC 202(H) 70 - 115 mg/dL 01/26/2018 8:30 PM CDT [facility] Blood BLOOD SPECIMEN / Unknown 01/26/2018 8:04 PM CDT 01/26/2018 8:30 PM CDT Narrative [facility] - 01/26/2018 8:30 PM CDT Buck Presser: JUAN ?GUY Conner Blancas MD LAB - POINT OF CARE ORDERABLES [address] [phone] * (ABNORMAL) GLUCOSE - POINT OF CARE (01/26/2018 5:08 PM CDT) Glucose WB/POC 150(H) 70 - 115 mg/dL 01/26/2018 5:52 PM CDT [facility] Blood BLOOD SPECIMEN / Unknown 01/26/2018 5:08 PM CDT 01/26/2018 5:52 PM CDT Narrative [facility] - 01/26/2018 5:52 PM CDT Buck Presser: JUAN ??AMBER Conner Blancas MD LAB - POINT OF CARE ORDERABLES [address] [phone] * (ABNORMAL) GLUCOSE - POINT OF CARE (01/26/2018 11:36 AM CDT) Glucose WB/POC 170(H) 70 - 115 mg/dL 01/26/2018 12:08 PM CDT [facility] Blood BLOOD SPECIMEN / Unknown 01/26/2018 11:36 AM CDT 01/26/2018 12:07 PM CDT Narrative [facility] - 01/26/2018 12:08 PM CDT Buck Presser: DEREJE ??ROBERTO Conner Blancas MD LAB - POINT OF CARE ORDERABLES Performing Organization Address [facility]/ZIP Co de Phone Number [address] [phone] * HEPARIN PLATELET INDUCED ANTIBODY (01/26/2018 9:18 AM CDT) Pathologist [facility] Interpretation Heparin Platelet Antibody Negative Negative 01/26/2018 2:49 PM CDT [facility] Comment: Heparin induced thrombocytopenia (HIT) is unlikely in the presence of a negative HIT antibody test result by CAROLE and low pretest probability for type II HIT (scoring system of [place]). It is suggested to verify positive HIT CAROLE antibody test results by HIT Antibody Serotonin Release Assay. HIT CAROLE Patient OD 0.132 <0.400 OD 01/26/2018 2:49 PM CDT [facility] Blood BLOOD SPECIMEN / Unknown 01/26/2018 9:18 AM CDT 01/26/2018 9:47 AM CDT Ethan Hancock MD LAB - CHEMISTRY CHRISTIAN RAZO Performing Organization Address City/[facility]/[place] [address], [facility] [phone] * XR CHEST 1VW (01/26/2018 8:33 AM CDT) Anatomical Region Laterality Modality Chest Radiographic Love ging 01/26/2018 10:5 1 AM CDT Impressions 01/26/2018 2:13 PM CDT Findings/ Impression: Intact and well aligned median sternotomy wires and mediastinal clips are redemonstrated. A left thoracostomy tube is present. The previously seen mediastinal drains as well as the [facility] catheter have been removed. Opacities in the left lower hemithorax likely representing a combination of pleural effusion, atelectasis, and/or airspace disease are unchanged. There is mild subsegmental atelectasis in the right mid and lower lung. No pneumothorax is identified. The cardiomediastinal silhouette is unchanged. Dictated by Oracio Martinez M.D. ([employer]otive Parts Interpreter) Dr. RAFY Jules MD have personally reviewed and interpreted [...] seen mediastinal drains as well as the [facility] catheter have been removed. Opacities in the left lower hemithorax likely representing a combination of pleural effusion, atelectasis, and/or airspace disease are unchanged. There is mild subsegmental atelectasis in the right mid and lower lung. No pneumothorax is identified. The cardiomediastinal silhouette is unchanged. Dictated by Oracio Martinez M.D. ([employer] Interpreter) Dr. RAFY Jules MD have personally reviewed and interpreted this examination/study. This report was electronically signed by RAFY VINSON MD on01/26/2018 2:13 PM . Ethan Hancock MD DIAGNOSTIC IMAGING O RDERABLES * (ABNORMAL) BASIC METABOLIC PANEL (CALCIUM TOTAL) (01/26/2018 6:52 AM CDT) BUN 9 7 - 26 mg/dL 01/26/2018 7:35 AM [facility] Creatinine 1.0 0.6 - 1.2 mg/dL 01/26/2018 7:35 AM [facility] Sodium 138 136 - 145 mmol/L 01/26/2018 7:35 AM [facility] Potassium 4.1 3.5 - 4.5 mmol/L 01/26/2018 7:35 AM [facility] Chloride 105 98 - 107 mmol/L 01/26/2018 7:35 AM [facility] CO2 24 22 - 29 mmol/L 01/26/2018 7:35 AM [facility] Glucose 158(H) 70 - 115 mg/dL 01/26/2018 7:35 AM [facility] Calcium 8.9 8.4 - 10.2 mg/dL 01/26/2018 7:35 AM [facility] Anion Gap 13 8 - 18 01/26/2018 7:35 AM [facility] BUN/Creatinine Ratio 9 7 - 23 01/26/2018 7:35 AM [facility] Osmolality Calculated 288 270 - 300 mOsm/kg 01/26/2018 7:35 AM [facility] eGFR >60 >60 mL/min/1.7 3 m2 01/26/2018 7:35 AM [facility] Blood BLOOD SPECIMEN / Unknown Venipuncture / Unknown 01/26/2018 6:52 AM CDT 01/26/2018 7:02 AM CDT Mary Colindres PA-C LAB - CHEMISTRY ORDERABLES [address] [phone] * (ABNORMAL) MAGNESIUM BLOOD (01/26/2018 6:52 AM CDT) Magnesium 1.4(L) 1.6 - 2.6 mg/dL 01/26/2018 7:35 AM CDT [facility] Blood BLOOD SPECIMEN / Unknown Venipuncture / Unknown 01/26/2018 6:52 AM CDT 01/26/2018 7:02 AM CDT Mary Colindres PA-C LAB - CHEMISTRY ORDERABLES [address] [phone] * PHOSPHORUS BLOOD (01/26/2018 6:52 AM CDT) Pathologist [facility] Phosphorus 3.2 2.3 - 4.7 mg/dL 01/26/2018 7:35 AM CDT [facility] Blood BLOOD SPECIMEN / Unknown Venipuncture / Unknown 01/26/2018 6:52 AM CDT 01/26/2018 7:02 AM CDT Mary Colindres PA-C LAB - CHEMISTRY ORDERABLES Performing Organization Address [facility]/State/ZIP Co de Phone Number [address] [phone] * (ABNORMAL) CBC W/O DIFFERENTIAL (01/26/2018 6:52 AM CDT) Pathologist [facility] WBC 9.2 3.5 - 10.5 10? 3 /uL 01/26/2018 7:19 AM CDT [facility] RBC 3.18(L) 4.30 - 5.70 10? 6 /uL 01/26/2018 7:19 AM T [facility] Hemoglobin 8.9(L) 13.5 - 17.5 g/dL 01/26/2018 7:19 AM T [facility] Hematocrit 28.3(L) 39.0 - 50.0 % 01/26/2018 7:19 AM T [facility] MCV 89.0 81.0 - 97.0 fL 01/26/2018 7:19 AM CDT [facility] MCH 28.0 28.0 - 34.0 pg 01/26/2018 7:19 AM [facility] MCHC 31.4(L) 32.0 - 36.0 g/dL 01/26/2018 7:19 AM [facility] Platelet Count 133(L) 150 - 400 10? 3 /uL 01/26/2018 7:19 AM [facility] RDW-SD 55.2(H) 36.0 - 50.0 fL 01/26/2018 7:19 AM [facility] RDW-CV 17.0(H) 11.2 - 14.8 % 01/26/2018 7:19 AM [facility] MPV 9.2(L) 9.3 - 12.8 fL 01/26/2018 7:19 AM [facility] Blood BLOOD SPECIMEN / Unknown Venipuncture / Unknown 01/26/2018 6:52 AM CDT 01/26/2018 7:02 AM CDT Mary Colindres PA-C LAB - HEMATOLOG Y ORDERABLES [address] [phone] * (ABNORMAL) GLUCOSE - POINT OF CARE (01/26/2018 6:20 AM CDT) Pathologist [facility] Glucose WB/POC 170(H) 70 - 115 mg/dL 01/26/2018 6:35 AM T [facility] Blood BLOOD SPECIMEN / Unknown 01/26/2018 6:20 AM CDT 01/26/2018 6:35 AM CDT Narrative [facility] - 01/26/2018 6:35 AM CDT Buck Presser: Clarissa ??Ayaka Conner Blancas MD LAB - POINT OF CARE ORDERABLES [address] [phone] * (ABNORMAL) GLUCOSE - POINT OF CARE (01/25/2018 9:27 PM CDT) Glucose WB/POC 182(H) 70 - 115 mg/dL 01/25/2018 9:56 PM CDT [facility] Blood BLOOD SPECIMEN / Unknown 01/25/2018 9:27 PM CDT 01/25/2018 9:56 PM CDT [facility] - 01/25/2018 9:56 PM CDT Buck Presser: DEREJE ??CAREN Conner Blancas MD LAB - POINT OF CARE ORDERABLES Performing Organization Address [facility]/ZIP Co de Phone Number [address] [phone] * (ABNORMAL) GLUCOSE - POINT OF CARE (01/25/2018 6:27 PM CDT) Glucose WB/POC 139(H) 70 - 115 mg/dL 01/25/2018 6:45 PM CDT [facility] Blood BLOOD SPECIMEN / Unknown 01/25/2018 6:27 PM CDT 01/25/2018 6:45 PM CDT [facility] - 01/25/2018 6:45 PM CDT Buck Presser: MAURA ??ENRRIQUE Conner Blancas MD LAB - POINT OF CARE ORDERABLES Performing Organization Address [facility]/ZIP Co de Phone Number [address] [phone] * (ABNORMAL) GLUCOSE - POINT OF CARE (01/25/2018 5:35 PM CDT) Glucose WB/POC 137(H) 70 - 115 mg/dL 01/25/2018 5:56 PM CDT [facility] Blood BLOOD SPECIMEN / Unknown 01/25/2018 5:35 PM CDT 01/25/2018 5:56 PM CDT [facility] - 01/25/2018 5:56 PM CDT Buck Presser: CHARLES ??ADRIANA Conner Blancas MD LAB - POINT OF CARE ORDERABLES [address] [phone] * ECHO FU OR LIMITED (01/25/2018 12:19 PM CDT) Anatomical Region Laterality Modality Color Flow Doppl er 01/25/2018 10:1 9 AM CDT Narrative Procedure Note Lulu Greenwood MD - 01/31/2018 Ethan Hancock MD ECHOCARDIOGRAPHY RAD IANT * (ABNORMAL) GLUCOSE - POINT OF CARE (01/25/2018 10:43 AM CDT) Glucose WB/POC 116(H) 70 - 115 mg/dL 01/25/2018 11:04 AM CDT [facility] Blood BLOOD SPECIMEN / Unknown 01/25/2018 10:43 AM CDT 01/25/2018 11:04 AM CDT Narrative [facility] - 01/25/2018 11:04 AM CDT Buck Presser: SANTANA ??ADRIANA Fabienne Cardona MD LAB - POINT OF CARE ORDERABLES [address] [phone] * (ABNORMAL) CALCIUM IONIZED WHOLE BLOOD (01/25/2018 9:05 AM CDT) Ionized Calcium Whole Blood 1.02 mmol/L 01/25/2018 9:09 AM CDT [facility] Adjusted Ionized Calcium 1.03(L) 1.19 - 1.34 mmol/L 01/25/2018 9:09 AM CDT [facility] pH Whole Blood 7.42 7.35 - 7.45 01/25/2018 9:09 AM CDT [facility] Blood BLOOD SPECIMEN / Unknown Venipuncture / Unknown 01/25/2018 9:05 AM CDT 01/25/2018 9:07 AM CDT Fabienne Cardona MD LAB - CHEMISTRY CHRISTIAN RAZO Performing Organization Address [facility] Co de Phone Number [address] [phone] * (ABNORMAL) GLUCOSE - POINT OF CARE (01/25/2018 8:54 AM CDT) Glucose WB/POC 135(H) 70 - 115 mg/dL 01/25/2018 9:17 AM CDT [facility] Blood BLOOD SPECIMEN / Unknown 01/25/2018 8:54 AM CDT 01/25/2018 9:17 AM CDT Narrative [facility] - 01/25/2018 9:17 AM CDT Buck Presser: CHARLES ?DELMA Fabienne Cardona MD LAB - POINT OF CARE ORDERABLES Performing Organization Address [facility] Co de Phone Number [address] [phone] * (ABNORMAL) GLUCOSE - POINT OF CARE (01/25/2018 7:51 AM CDT) Pathologist [facility] Glucose WB/POC 134(H) 70 - 115 mg/dL 01/25/2018 8:13 AM CDT [facility] Blood BLOOD SPECIMEN / Unknown 01/25/2018 7:51 AM CDT 01/25/2018 8:13 AM CDT Narrative [facility] - 01/25/2018 8:13 AM CDT Buck Presser: CHARLES ?DELMA Fabienne Cardona MD LAB - POINT OF CARE ORDERABLES Performing Organization Address [facility] Co de Phone Number [address] [phone] * EKG 12-LEAD (01/25/2018 7:35 AM CDT) Ventricular Rate 59 BPM [facility] M[facility] Atrial Rate 59 BPM [facility] P-R Interval 136 ms [facility] QRS Duration ms 90 ms [facility] Q-T Interval ms 424 ms [facility] QTC Calculation (Bezet) 419 ms [facility] Calculated P [place] 54 degrees [facility] M[facility] Calculated R [place] 16 degrees [facility] M[facility] Calculated T [place] -12 degrees [facility] Interpretation EKG Sinus bradycardia~ST elevation consider inferolateral injury or acute infarct~ ACUTE NM / STEMI ~Abnormal ECG~When compared with ECG of 24-JAN-2018 15:42,~St now abnormal in lateral leads~Confirmed by MAURILIO DAVIS, P ([id number]), staff editor Tee Downey ([id number]) on 01/31/2018 9:26:47 PM [facility] MUSE 01/25/2018 7:35 AM CDT 01/31/2018 9:26 PM CDT Conner Blancas MD ECG ORDERABLES [facility] * (ABNORMAL) GLUCOSE - POINT OF CARE (01/25/2018 6:29 AM CDT) Glucose WB/POC 128(H) 70 - 115 mg/dL 01/25/2018 7:16 AM CDT [facility] Blood BLOOD SPECIMEN / Unknown 01/25/2018 6:29 AM CDT 01/25/2018 7:16 AM CDT Narrative [facility] - 01/25/2018 7:16 AM CDT Buck Presser: BLAS ??NIRU LUIS Fabienne Cardona MD LAB - POINT OF CARE ORDERABLES [address] [phone] * XR CHEST 1VW PORTABLE (01/25/2018 5:28 AM CDT) Anatomical Region Laterality Modality Chest Radiographic Love ging 01/25/2018 11:3 1 AM CDT Impressions 01/30/2018 12:27 PM CDT FINDINGS/IMPRESSION: Median sternotomy wires and mediastinal surgical clips are unchanged. A right internal jugular approach [facility] catheter terminates near the main pulmonary artery, unchanged from prior examination. A left thoracostomy tube and mediastinal drains are unchanged in position. The bilateral interstitial and airspace opacities representing pulmonary edema and/or multifocal pneumonia have not grossly changed since the prior examination. No pleural effusion or pneumothorax is identified. The cardiomediastinal silhouette is unchanged. Dictated by Yeyo Birmingham MD (residential support worker). This report was approved ??by Yeyo Birmingham Dr ?? on 01/25/2018 5:06 PM . Dhara, Dr. DOLORES CARO M.D. have personally reviewed [...] are unchanged. A right internal jugular approach [facility] catheter terminates near the main pulmonary artery, unchanged from prior examination. A left thoracostomy tube and mediastinal drains are unchanged in position. The bilateral interstitial and airspace opacities representing pulmonary edema and/or multifocal pneumonia have not grossly changed since theprior examination. No pleural effusion or pneumothorax is identified. The cardiomediastinal silhouette is unchanged. Dictated by Yeyo Birmingham MD (residential support worker). This report was approved by Yeyo Birmingham [...] - 115 mg/dL 01/25/2018 4:24 AM CDT [facility] Blood BLOOD SPECIMEN / Unknown 01/25/2018 4:10 AM CDT 01/25/2018 4:24 AM CDT Narrative [facility] - 01/25/2018 4:24 AM CDT Buck Presser: BLAS LUIS Fabienne Cardona MD LAB - POINT OF CARE ORDERABLES [address] [phone] * (ABNORMAL) GLUCOSE - POINT OF CARE (01/25/2018 2:33 AM CDT) Glucose WB/POC 121(H) 70 - 115 mg/dL 01/25/2018 2:47 AM CDT [facility] Blood BLOOD SPECIMEN / Unknown 01/25/2018 2:33 AM CDT 01/25/2018 2:47 AM CDT Narrative [facility] - 01/25/2018 2:47 AM CDT Buck Presser: BLAS LUIS Fabienne Cardona MD LAB - POINT OF CARE ORDERABLES Performing Organization Address City/[facility]/ZIP Co de Phone Number [address] [phone] * GLUCOSE - POINT OF CARE (01/25/2018 1:25 AM CDT) Glucose WB/POC 110 70 - 115 mg/dL 01/25/2018 1:38 AM CDT [facility] Blood BLOOD SPECIMEN / Unknown 01/25/2018 1:25 AM CDT 01/25/2018 1:38 AM CDT Narrative [facility] - 01/25/2018 1:38 AM CDT Buck Presser: BLAS LUIS Fabienne Cardona MD LAB - [place] [address], [facility] [phone] * (ABNORMAL) GLUCOSE - POINT OF CARE (01/25/2018 12:34 AM CDT) Glucose WB/POC 126(H) 70 - 115 mg/dL 01/25/2018 12:49 AM CDT [facility] Blood BLOOD SPECIMEN / Unknown 01/25/2018 12:34 AM CDT 01/25/2018 12:49 AM CDT Narrative [facility] - 01/25/2018 12:49 AM CDT Buck Presser: BLAS ?LIAM LUIS Fabienne Cardona MD LAB - POINT OF CARE ORDERABLES Performing Organization Address City/[facility]/ZIP Co de Phone Number [address] [phone] * (ABNORMAL) CALCIUM IONIZED WHOLE BLOOD (01/25/2018 12:26 AM CDT) Pathologist [facility] Ionized Calcium Whole Blood 1.11 mmol/L 01/25/2018 1:40 AM T [facility] Adjusted Ionized Calcium 1.12(L) 1.19 - 1.34 mmol/L 01/25/2018 1:40 AM T [facility] pH Whole Blood 7.42 7.35 - 7.45 01/25/2018 1:40 AM T [facility] Blood BLOOD SPECIMEN / Unknown Lab Venipuncture / Unknown 01/25/2018 12:26 AM CDT 01/25/2018 1:23 AM CDT Caryn Zhao PA-C LAB - CHEMISTRY ORD ERABLES Performing Organization Address City/[facility]/ZIP Co de Phone Number [address] [phone] * PT-INR [facility] (01/25/2018 12:26 AM CDT) Pathologist [facility] PT 14.2 12.1 - 14.8 Seconds 01/25/2018 12:56 AM T [facility] INR 1.1 See Comment 01/25/2018 12:56 AM T [facility] Comment: Suggested therapeutic range for low-intensity [...] - COAGULATION OR DERABLES Performing Organization Address [facility]/ZIP Co de Phone Number [address] [phone] * (ABNORMAL) SVO2 FOR RECALIBRATION (01/25/2018 12:26 AM CDT) SVO2 for Recalibration 80.6(H) 66.0 - 77.0 % 01/25/2018 12:46 AM CDT [facility] Blood BLOOD SPECIMEN / Unknown Venipuncture / Unknown 01/25/2018 12:26 AM CDT 01/25/2018 12:39 AM CDT Fabienne Cardona MD LAB - CHEMISTRY ORDE RABLES Performing Organization Address [facility] Co de Phone Number [address] [phone] * (ABNORMAL) PHOSPHORUS BLOOD (01/25/2018 12:26 AM CDT) Phosphorus 4.8(H) 2.3 - 4.7 mg/dL 01/25/2018 1:33 AM CDT [facility] Blood BLOOD SPECIMEN / Unknown Venipuncture / Unknown 01/25/2018 12:26 AM CDT 01/25/2018 12:40 AM CDT Caryn Zhao PA-C LAB - CHEMISTRY ORD ERABLES Performing Organization Address [facility]/ZIP Co de Phone Number [address] [phone] * MAGNESIUM BLOOD (01/25/2018 12:26 AM CDT) Magnesium 2.0 1.6 - 2.6 mg/dL 01/25/2018 1:33 AM [facility] Blood BLOOD SPECIMEN / Unknown Venipuncture / Unknown 01/25/2018 12:26 AM CDT 01/25/2018 12:40 AM CDT Carny Zhao PA-C LAB - CHEMISTRY ORD ERABLES [facility] [address] [phone] * (ABNORMAL) CBC W/O DIFFERENTIAL (01/25/2018 12:26 AM CDT) WBC 8.4 3.5 - 10.5 10? 3 /uL 01/25/2018 12:48 AM [facility] RBC 3.13(L) 4.30 - 5.70 10? 6 /uL 01/25/2018 12:48 AM [facility] Hemoglobin 8.7(L) 13.5 - 17.5 g/dL 01/25/2018 12:48 AM [facility] Hematocrit 27.1(L) 39.0 - 50.0 % 01/25/2018 12:48 AM [facility] MCV 86.6 81.0 - 97.0 fL 01/25/2018 12:48 AM [facility] MCH 27.8(L) 28.0 - 34.0 pg 01/25/2018 12:48 AM [facility] MCHC 32.1 32.0 - 36.0 g/dL 01/25/2018 12:48 AM [facility] Platelet Count 155 150 - 400 10? 3 /uL 01/25/2018 12:48 AM [facility] RDW-SD 52.8(H) 36.0 - 50.0 fL 01/25/2018 12:48 AM [facility] RDW-CV 16.7(H) 11.2 - 14.8 % 01/25/2018 12:48 AM [facility] MPV 9.1(L) 9.3 - 12.8 fL 01/25/2018 12:48 AM [facility] Blood BLOOD SPECIMEN / Unknown Venipuncture / Unknown 01/25/2018 12:26 AM CDT 01/25/2018 12:39 AM CDT Caryn Zhao PA-C LAB - HEMATOLOGY OR DERABLES [facility] [address] [place] [address] * (ABNORMAL) BASIC METABOLIC PANEL (CALCIUM TOTAL) (01/25/2018 12:26 AM CDT) BUN 15 7 - 26 mg/dL 01/25/2018 1:33 AM [facility] Creatinine 0.9 0.6 - 1.2 mg/dL 01/25/2018 1:33 AM [facility] Sodium 137 136 - 145 mmol/L 01/25/2018 1:33 AM [facility] Potassium 4.6(H) 3.5 - 4.5 mmol/L 01/25/2018 1:33 AM [facility] Chloride 104 98 - 107 mmol/L 01/25/2018 1:33 AM [facility] CO2 21(L) 22 - 29 mmol/L 01/25/2018 1:33 AM [facility] Glucose 131(H) 70 - 115 mg/dL 01/25/2018 1:33 AM [facility] Calcium 9.3 8.4 - 10.2 mg/dL 01/25/2018 1:33 AM [facility] Anion Gap 17 8 - 18 01/25/2018 1:33 AM [facility] BUN/Creatinine Ratio 17 7 - 23 01/25/2018 1:33 AM [facility] Osmolality Calculated 287 270 - 300 mOsm/kg 01/25/2018 1:33 AM [facility] eGFR >60 >60 mL/min/1.7 3 m2 01/25/2018 1:33 AM [facility] Blood BLOOD SPECIMEN / Unknown Venipuncture / Unknown 01/25/2018 12:26 AM CDT 01/25/2018 12:40 AM CDT Caryn Zhao PA-C LAB - CHEMISTRY ORD ERABLES Performing Organization Address City/[facility]/ZIP Co de Phone Number [facility] [address] [phone] * (ABNORMAL) BLOOD GASES ART (01/25/2018 12:26 AM CDT) pH Arterial 7.42 7.35 - 7.45 01/25/2018 12:44 AM [facility] pCO2 Arterial 38 35 - 45 mmHg 01/25/2018 12:44 AM [facility] pO2 Arterial 82 71 - 95 mmHg 01/25/2018 12:44 AM [facility] HCO3 Arterial 24.3 22.0 - 26.0 mmol/L 01/25/2018 12:44 AM [facility] TCO2 Arterial 25.5 25.0 - 29.0 mmol/L 01/25/2018 12:44 AM [facility] Base Excess Arterial -0.1 -2.0 - 2.0 mmol/L 01/25/2018 12:44 AM [facility] Hemoglobin Arterial 8.4(L) 13.5 - 17.5 g/dL 01/25/2018 12:44 AM [facility] Oxyhemoglobin Arterial 94.3(L) 95.0 - 100.0 % 01/25/2018 12:44 AM [facility] Carboxyhemoglobin 0.5 0.0 - 3.0 % 01/25/2018 12:44 AM [facility] Methemoglobin 0.5 0.0 - 2.0 % 01/25/2018 12:44 AM [facility] FI O2 Arterial 36.0 % 01/25/2018 12:44 AM [facility] Blood, arterial ARTERIAL BLOOD SPECIMEN / Unknown Arterial Puncture / Unknown 01/25/2018 12:26 AM CDT 01/25/2018 12:39 AM [facility] Caryn Zhao PA-C LAB - BLOOD GASES O RDERABLES [facility] [address] [place] [address], [facility] [phone] * (ABNORMAL) GLUCOSE - POINT OF CARE (01/24/2018 10:08 PM CDT) Glucose WB/POC 144(H) 70 - 115 mg/dL 01/24/2018 10:21 PM CDT [facility] Blood BLOOD SPECIMEN / Unknown 01/24/2018 10:08 PM CDT 01/24/2018 10:21 PM CDT [facility] - 01/24/2018 10:21 PM CDT Buck Presser: BLAS LUIS Fabienne Cardona MD LAB - POINT OF CARE ORDERABLES [address] [phone] * (ABNORMAL) GLUCOSE - POINT OF CARE (01/24/2018 9:21 PM CDT) Glucose WB/POC 144(H) 70 - 115 mg/dL 01/24/2018 10:02 PM CDT [facility] Blood BLOOD SPECIMEN / Unknown 01/24/2018 9:21 PM CDT 01/24/2018 10:02 PM CDT [facility] - 01/24/2018 10:02 PM CDT Buck Presser: BLAS LUIS Fabienne Cardona MD LAB - POINT OF CARE ORDERABLES [address] [phone] * (ABNORMAL) GLUCOSE - POINT OF CARE (01/24/2018 8:01 PM CDT) Glucose WB/POC 156(H) 70 - 115 mg/dL 01/24/2018 8:33 PM CDT [facility] Blood BLOOD SPECIMEN / Unknown 01/24/2018 8:01 PM CDT 01/24/2018 8:33 PM CDT [facility] - 01/24/2018 8:33 PM CDT Buck Presser: BLAS LUIS Fabienne Cardona MD LAB - POINT OF CARE ORDERABLES Performing Organization Address City/[facility]/ZIP Co de Phone Number [facility] [address] [phone] * (ABNORMAL) BLOOD GASES ART (01/24/2018 7:17 PM CDT) pH Arterial 7.40 7.35 - 7.45 01/24/2018 7:33 PM T [facility] pCO2 Arterial 40 35 - 45 mmHg 01/24/2018 7:33 PM T [facility] pO2 Arterial 102(H) 71 - 95 mmHg 01/24/2018 7:33 PM [facility] HCO3 Arterial 24.6 22.0 - 26.0 mmol/L 01/24/2018 7:33 PM [facility] TCO2 Arterial 25.8 25.0 - 29.0 mmol/L 01/24/2018 7:33 PM [facility] Base Excess Arterial -0.1 -2.0 - 2.0 mmol/L 01/24/2018 7:33 PM [facility] Hemoglobin Arterial 8.8(L) 13.5 - 17.5 g/dL 01/24/2018 7:33 PM [facility] Oxyhemoglobin Arterial 95.7 95.0 - 100.0 % 01/24/2018 7:33 PM [facility] Carboxyhemoglobin 0.3 0.0 - 3.0 % 01/24/2018 7:33 PM [facility] Methemoglobin 0.3 0.0 - 2.0 % 01/24/2018 7:33 PM [facility] FI O2 Arterial 40.0 % 01/24/2018 7:33 PM [facility] Blood, arterial ARTERIAL BLOOD SPECIMEN / Unknown Arterial Puncture / Unknown 01/24/2018 7:17 PM CDT 01/24/2018 7:28 PM T Caryn Zhao PA-C LAB - BLOOD GASES O RDERABLES [facility] [address] [phone] * (ABNORMAL) CALCIUM IONIZED WHOLE BLOOD (01/24/2018 6:36 PM CDT) Ionized Calcium Whole Blood 1.05 mmol/L 01/24/2018 6:49 PM CDT [facility] Adjusted Ionized Calcium 1.04(L) 1.19 - 1.34 mmol/L 01/24/2018 6:49 PM CDT [facility] pH Whole Blood 7.39 7.35 - 7.45 01/24/2018 6:49 PM CDT [facility] Blood BLOOD SPECIMEN / Unknown Venipuncture / Unknown 01/24/2018 6:36 PM CDT 01/24/2018 6:45 PM CDT Fabienne Cardona MD LAB - CHEMISTRY [facility] [address] [phone] * (ABNORMAL) GLUCOSE - POINT OF CARE (01/24/2018 6:20 PM CDT) Pathologist [facility] Glucose WB/POC 139(H) 70 - 115 mg/dL 01/24/2018 6:51 PM CDT [facility] Blood BLOOD SPECIMEN / Unknown 01/24/2018 6:20 PM CDT 01/24/2018 6:51 PM CDT Narrative [facility] - 01/24/2018 6:51 PM CDT Buck Presser: BRAKE ??EDWARD Fabienne Cardona MD LAB - POINT OF CARE ORDERABLES [address] [phone] * (ABNORMAL) BLOOD GASES ART (01/24/2018 5:06 PM CDT) pH Arterial 7.35 7.35 - 7.45 01/24/2018 5:58 PM CDT [facility] pCO2 Arterial 44 35 - 45 mmHg 01/24/2018 5:58 PM CDT [facility] pO2 Arterial 91 71 - 95 mmHg 01/24/2018 5:58 PM CDT [facility] HCO3 Arterial 23.5 22.0 - 26.0 mmol/L 01/24/2018 5:58 PM [facility] TCO2 Arterial 24.9(L) 25.0 - 29.0 mmol/L 01/24/2018 5:58 PM [facility] Base Excess Arterial -2.1(L) -2.0 - 2.0 mmol/L 01/24/2018 5:58 PM [facility] Hemoglobin Arterial 8.6(L) 13.5 - 17.5 g/dL 01/24/2018 5:58 PM [facility] Oxyhemoglobin Arterial 94.2(L) 95.0 - 100.0 % 01/24/2018 5:58 PM [facility] Carboxyhemoglobin 0.6 0.0 - 3.0 % 01/24/2018 5:58 PM [facility] Methemoglobin 0.6 0.0 - 2.0 % 01/24/2018 5:58 PM [facility] FI O2 Arterial 40.0 % 01/24/2018 5:58 PM [facility] Blood, arterial ARTERIAL BLOOD SPECIMEN / Unknown Arterial Puncture / Unknown 01/24/2018 5:06 PM CDT 01/24/2018 5:55 PM CDT Fabienne Cardona MD LAB - BLOOD GASES OR DERABLES Performing Organization Address City/State/[facility] de Phone Number [facility] [address] [phone] * (ABNORMAL) GLUCOSE - POINT OF CARE (01/24/2018 5:01 PM CDT) [facility] Glucose WB/POC 117(H) 70 - 115 mg/dL 01/24/2018 5:23 PM CDT [facility] Blood BLOOD SPECIMEN / Unknown 01/24/2018 5:01 PM CDT 01/24/2018 5:23 PM CDT Narrative [facility] - 01/24/2018 5:23 PM CDT Buck Presser: BRAKE ??EDWARD Fabienne Cardona MD LAB - POINT OF CARE ORDERABLES [facility] [address] [place] [address] * ECHO AMANDO TRANSESOPHAGEAL (01/24/2018 4:49 PM CDT) Anatomical Region Laterality Modality Color Flow Doppl er 01/24/2018 6:25 AM CDT Narrative Procedure Note Rosalee Ivory MD - 04/24/2018 Ethan Hancock MD ECHOCARDIOGRAPHY RAD IANT * (ABNORMAL) CALCIUM IONIZED WHOLE BLOOD (01/24/2018 3:59 PM CDT) Ionized Calcium Whole Blood 1.11 mmol/L 01/24/2018 4:06 PM CDT [facility] Adjusted Ionized Calcium 1.04(L) 1.19 - 1.34 mmol/L 01/24/2018 4:06 PM CDT [facility] pH Whole Blood 7.27(L) 7.35 - 7.45 01/24/2018 4:06 PM CDT [facility] Blood BLOOD SPECIMEN / Unknown Lab Venipuncture / Unknown 01/24/2018 3:59 PM CDT 01/24/2018 4:00 PM CDT Fabienne Cardona MD LAB - CHEMISTRY CHRISTIAN RAZO Performing Organization Address [facility]/ZIP Co de Phone Number [address] [phone] * XR CHEST 1VW PORTABLE (01/24/2018 3:51 PM CDT) Anatomical Region Laterality Modality Chest Radiographic Love ging 01/24/2018 3:51 PM CDT Impressions 01/25/2018 5:31 PM CDT FINDINGS/IMPRESSION: The endotracheal tube terminates in the midthoracic trachea. A right internal jugular approach [facility] catheter is unchanged and terminates in the [...] is intact. Dictated by Yeyo Birmingham MD (residential support worker). This report was approved ??by Yeyo Birmingham [...] midthoracic trachea. A right internal jugular approach [facility] catheter is unchanged and terminates in the [...] is intact. Dictated by Yeyo Birmingham MD (residential support worker). This report was approved by Yeyo Birmingham Dr on 01/25/2018 4:48 PM . I, Dr. KATERIN ALVA M.D. have personally reviewed and interpreted this examination/study. This report was electronically signed by KATERIN ALVA M.D. on 01/25/2018 5:31 PM . Caryn Zhao PA-C DIAGNOSTIC IMAGING ORDERABLES * (ABNORMAL) GLUCOSE - POINT OF CARE (01/24/2018 3:44 PM CDT) Glucose WB/POC 126(H) 70 - 115 mg/dL 01/24/2018 4:04 PM CDT [facility] Blood BLOOD SPECIMEN / Unknown 01/24/2018 3:44 PM CDT 01/24/2018 4:04 PM CDT Narrative [facility] - 01/24/2018 4:04 PM CDT Buck Presser: RICHARD ?LENORA Fabienne Cardona MD LAB - POINT OF CARE ORDERABLES Performing Organization Address City/[facility]/ZIP Co de Phone Number [address] [phone] * EKG 12-LEAD (01/24/2018 3:42 PM CDT) Ventricular Rate 77 BPM [facility] Atrial Rate 77 BPM [facility] P-R Interval 138 ms [facility] QRS Duration ms 86 ms [facility] Q-T Interval ms 390 ms [facility] MUSE QTC Calculation (Bezet) 441 ms [facility] Calculated P [place] 7 degrees [facility] MUSE Calculated R [place] 22 degrees [facility] Calculated T [place] -34 degrees [facility] Interpretation EKG Normal sinus rhythm~ST elevation, consider early repolarization , pericarditis, or injury~T wave abnormality, consider inferior ischemia~Abnor mal ECG~When compared with ECG of 21-DEC-2017 12:33,~Lateral T wave abnormality no longer present~Confir med by Neena BRANHAM TAREK ([id number]), staff editor Tee Downey ([id number]) on 01/31/2018 8:15:46 PM [facility] MUSE 01/24/2018 3:42 PM CDT 01/31/2018 8:15 PM CDT Caryn Zhao PA-C ECG ORDERABLES Performing Organization Address City/[facility]/ZIP Co de Phone Number [facility] MUSE * (ABNORMAL) PHOSPHORUS BLOOD (01/24/2018 3:42 PM CDT) Phosphorus 6.0(H) 2.3 - 4.7 mg/dL 01/24/2018 6:44 PM CDT [facility] Blood BLOOD SPECIMEN / Unknown Venipuncture / Unknown 01/24/2018 3:42 PM CDT 01/24/2018 6:21 PM CDT Caryn Zhao PA-C LAB - CHEMISTRY ORD ERABLES [address] [phone] * MAGNESIUM BLOOD (01/24/2018 3:42 PM CDT) Magnesium 2.2 1.6 - 2.6 mg/dL 01/24/2018 6:44 PM CDT [facility] Blood BLOOD SPECIMEN / Unknown Venipuncture / Unknown 01/24/2018 3:42 PM CDT 01/24/2018 6:21 PM CDT Caryn Zhao PA-C LAB - CHEMISTRY ORD ERABLES Performing Organization Address [facility]/ZIP Co de Phone Number [address] [phone] * (ABNORMAL) BASIC METABOLIC PANEL (CALCIUM TOTAL) (01/24/2018 3:42 PM CDT) BUN 15 7 - 26 mg/dL 01/24/2018 6:44 PM [facility] Creatinine 0.8 0.6 - 1.2 mg/dL 01/24/2018 6:44 PM [facility] Sodium 139 136 - 145 mmol/L 01/24/2018 6:44 PM [facility] Potassium 4.7(H) 3.5 - 4.5 mmol/L 01/24/2018 6:44 PM [facility] Chloride 104 98 - 107 mmol/L 01/24/2018 6:44 PM [facility] CO2 23 22 - 29 mmol/L 01/24/2018 6:44 PM [facility] Glucose 120(H) 70 - 115 mg/dL 01/24/2018 6:44 PM T [facility] Calcium 9.2 8.4 - 10.2 mg/dL 01/24/2018 6:44 PM [facility] Anion Gap 17 8 - 18 01/24/2018 6:44 PM CDT [facility] BUN/Creatinine Ratio 19 7 - 23 01/24/2018 6:44 PM CDT [facility] Osmolality Calculated 290 270 - 300 mOsm/kg 01/24/2018 6:44 PM CDT [facility] eGFR >60 >60 mL/min/1.7 3 m2 01/24/2018 6:44 PM CDT [facility] Blood BLOOD SPECIMEN / Unknown Venipuncture / Unknown 01/24/2018 3:42 PM CDT 01/24/2018 6:21 PM CDT Caryn Zhao PA-C LAB - CHEMISTRY ORD ERABLES [address] [phone] * (ABNORMAL) SVO2 FOR RECALIBRATION (01/24/2018 3:41 PM CDT) SVO2 for Recalibration 78.4(H) 66.0 - 77.0 % 01/24/2018 4:13 PM CDT [facility] Blood BLOOD SPECIMEN / Unknown Venipuncture / Unknown 01/24/2018 3:41 PM CDT 01/24/2018 4:11 PM CDT Caryn Zhao PA-C LAB - CHEMISTRY ORD ERABLES Performing Organization Address City/[facility]/ZIP Co de Phone Number [address] [phone] * PTT [facility] (01/24/2018 3:40 PM CDT) APTT 35.7 23.0 - 38.4 Seconds 01/24/2018 4:17 PM CDT [facility] Comment: Suggested therapeutic range for full dose I.V. heparin therapy for venous thromboembolism is 66.0-91.0 seconds. Blood BLOOD SPECIMEN / Unknown Venipuncture / Unknown 01/24/2018 3:40 PM CDT 01/24/2018 3:53 PM CDT Caryn Zhao PA-C LAB - COAGULATION O RDERABLES [address] [phone] * PT-INR [facility] (01/24/2018 3:40 PM CDT) Pathologist [facility] PT 14.7 12.1 - 14.8 Seconds 01/24/2018 4:16 PM CDT [facility] INR 1.2 See Comment 01/24/2018 4:16 PM CDT [facility] Comment: Suggested therapeutic range for low-intensity coumadin therapy for venous thromboembolism prophylaxis is an INR of 2.0-3.0. ??For high risk patients (Mitral Valve Prosthesis, Atrial Fibrillation, history of TIA/stroke), suggested prophylactic therapeutic range is an INR of 2.5-3.5. Blood BLOOD SPECIMEN / Unknown Venipuncture / Unknown 01/24/2018 3:40 PM CDT 01/24/2018 3:53 PM CDT Caryn Zhao PA-C LAB - COAGULATION O RDERAHATTIE Performing Organization Address [facility]/ZIP Co de Phone Number [address] [phone] * FIBRINOGEN ACTIVITY (01/24/2018 3:40 PM CDT) Pathologist [facility] Fibrinogen Clauss 302 200 - 400 mg/dL 01/24/2018 4:16 PM CDT [facility] Blood BLOOD SPECIMEN / Unknown Venipuncture / Unknown 01/24/2018 3:40 PM CDT 01/24/2018 3:53 PM CDT Caryn Zhao PA-C LAB [place] [id number], [facility] [phone] * (ABNORMAL) CBC W AUTO DIFFERENTIAL (01/24/2018 3:40 PM CDT) Pathologist [facility] WBC 9.5 3.5 - 10.5 10? 3 /uL 01/24/2018 4:13 PM [facility] RBC 3.19(L) 4.30 - 5.70 10? 6 /uL 01/24/2018 4:13 PM [facility] Hemoglobin 8.9(L) 13.5 - 17.5 g/dL 01/24/2018 4:13 PM [facility] Hematocrit 27.9(L) 39.0 - 50.0 % 01/24/2018 4:13 PM [facility] MCV 87.5 81.0 - 97.0 fL 01/24/2018 4:13 PM [facility] MCH 27.9(L) 28.0 - 34.0 pg 01/24/2018 4:13 PM [facility] MCHC 31.9(L) 32.0 - 36.0 g/dL 01/24/2018 4:13 PM [facility] Platelet Count 156 150 - 400 10? 3 /uL 01/24/2018 4:13 PM [facility] RDW-SD 52.7(H) 36.0 - 50.0 fL 01/24/2018 4:13 PM [facility] RDW-CV 16.4(H) 11.2 - 14.8 % 01/24/2018 4:13 PM [facility] MPV 9.1(L) 9.3 - 12.8 fL 01/24/2018 4:13 PM [facility] Neutrophils % 78.4(H) 35.0 - 70.0 % 01/24/2018 4:13 PM [facility] Lymphocytes % 13.8(L) 19.7 - 55.1 % 01/24/2018 4:13 PM [facility] Monocytes % 7.4 3.0 - 15.0 % 01/24/2018 4:13 PM [facility] Eosinophils % 0.3 0.0 - 6.0 % 01/24/2018 4:13 PM [facility] Basophil % 0.1 0.0 - 1.5 % 01/24/2018 4:13 PM [facility] Neutrophils Absolute 7.4(H) 1.6 - 7.0 10? 3 /uL 01/24/2018 4:13 PM T [facility] Lymphocyte Absolute 1.3 0.8 - 2.9 10? 3 /uL 01/24/2018 4:13 PM T [facility] Monocytes Absolute 0.70(H) 0.14 - 0.66 10? 3 /uL 01/24/2018 4:13 PM T [facility] Eosinophils Absolute 0.03 0.00 - 0.22 10? 3 /uL 01/24/2018 4:13 PM T [facility] Basophils Absolute 0.01 0.00 - 0.06 10? 3 /uL 01/24/2018 4:13 PM [facility] Immature Granulocytes % 0.4 0.0 - 1.0 % 01/24/2018 4:13 PM [facility] Blood BLOOD SPECIMEN / Unknown Venipuncture / Unknown 01/24/2018 3:40 PM CDT 01/24/2018 3:53 PM CDT Caryn Zhao PA-C LAB - HEMATOLOGY OR DERABLES [facility] [address] [phone] * (ABNORMAL) BLOOD GASES ART (01/24/2018 3:40 PM CDT) pH Arterial 7.26(L) 7.35 - 7.45 01/24/2018 4:14 PM [facility] pCO2 Arterial 56(H) 35 - 45 mmHg 01/24/2018 4:14 PM [facility] pO2 Arterial 120(H) 71 - 95 mmHg 01/24/2018 4:14 PM [facility] HCO3 Arterial 24.5 22.0 - 26.0 mmol/L 01/24/2018 4:14 PM [facility] TCO2 Arterial 26.3 25.0 - 29.0 mmol/L 01/24/2018 4:14 PM [facility] Base Excess Arterial -2.8(L) -2.0 - 2.0 mmol/L 01/24/2018 4:14 PM [facility] Hemoglobin Arterial 9.1(L) 13.5 - 17.5 g/dL 01/24/2018 4:14 PM CDT [facility] Oxyhemoglobin Arterial 95.8 95.0 - 100.0 % 01/24/2018 4:14 PM CDT [facility] Carboxyhemoglobin 0.3 0.0 - 3.0 % 01/24/2018 4:14 PM CDT [facility] Methemoglobin 0.3 0.0 - 2.0 % 01/24/2018 4:14 PM CDT [facility] FI O2 Arterial 60.0 % 01/24/2018 4:14 PM CDT [facility] Blood, arterial ARTERIAL BLOOD SPECIMEN / Unknown Arterial Puncture / Unknown 01/24/2018 3:40 PM CDT 01/24/2018 4:12 PM CDT Caryn Zhao PA-C LAB - BLOOD GASES O RDERABLES Performing Organization Address City/State/[facility] Co de Phone Number [address] [phone] * XR CHEST 1VW (01/24/2018 3:00 PM CDT) Anatomical Region Laterality Modality Chest Radiographic Love ging 01/24/2018 2:58 PM CDT Impressions 01/25/2018 5:31 PM CDT IMPRESSION: There is no evidence of a retained curvilinear needle in the visible portions of the chest. Dictated by Yeyo Birmingham MD (residential support worker). This report was approved ??by Yeyo Birmingham [...] the stomach. A right internal jugular approach [facility] catheter terminates in the main pulmonary artery. A left thoracostomy tube and 2 mediastinal tubes have been placed. Multiple surgical clips are seen throughout the mediastinum. Procedure Note Katerin Avla MD - 01/25/2018 EXAMINATION: XR CHEST 1VW HISTORY: [id number]: Status post cardiac surgery COMPARISON: AP portable chest dated 12/21/2017 FINDINGS/: Median sternotomy wires have been intervally placed. An endoscope isseen coursing expected esophageal path and terminating at the stomach. Aright internal jugular approach [facility] catheter terminates in the main pulmonary artery. A left thoracostomy tube and 2 mediastinal tubes have been placed. Multiple surgical clips are seen throughout themediastinum. IMPRESSION: There is no evidence of a retained curvilinear needle in the visible portions of the chest. Dictated by Yeyo Birmingham MD (residential support worker). This report was approved by Yeyo Birmingham Dr on 01/25/2018 4:42 PM . IDr. KATERIN M.D. have personally reviewed and interpreted this examination/study. This report was electronically signed by KATERIN ALVA M.D. on 01/25/2018 5:31 PM . Fabienne Cardona MD DIAGNOSTIC IMAGING O RDERABLES * (ABNORMAL) BLOOD GASES ART (01/24/2018 2:29 PM CDT) pH Arterial 7.27(L) 7.35 - 7.45 01/24/2018 2:41 PM [facility] pCO2 Arterial 50(H) 35 - 45 mmHg 01/24/2018 2:41 PM [facility] pO2 Arterial 122(H) 71 - 95 mmHg 01/24/2018 2:41 PM [facility] HCO3 Arterial 22.7 22.0 - 26.0 mmol/L 01/24/2018 2:41 PM [facility] TCO2 Arterial 24.3(L) 25.0 - 29.0 mmol/L 01/24/2018 2:41 PM [facility] Base Excess Arterial -4.1(L) -2.0 - 2.0 mmol/L 01/24/2018 2:41 PM [facility] Hemoglobin Arterial 8.9(L) 13.5 - 17.5 g/dL 01/24/2018 2:41 PM [facility] Oxyhemoglobin Arterial 95.8 95.0 - 100.0 % 01/24/2018 2:41 PM [facility] Carboxyhemoglobin 0.6 0.0 - 3.0 % 01/24/2018 2:41 PM [facility] Methemoglobin 0.4 0.0 - 2.0 % 01/24/2018 2:41 PM [facility] FI O2 Arterial 60.0 % 01/24/2018 2:41 PM [facility] Blood, arterial ARTERIAL BLOOD SPECIMEN / Unknown Arterial Puncture / Unknown 01/24/2018 2:29 PM CDT 01/24/2018 2:38 PM CDT Fabienne Cardona MD LAB - BLOOD GASES OR DERABLES Performing Organization Address [facility]/State/[facility] Co de Phone Number [address] [phone] * (ABNORMAL) BLOOD GASES ART [facility]PLETE [facility] OR (01/24/2018 1:45 PM CDT) pH Arterial 7.26(L) 7.35 - 7.45 01/24/2018 1:55 PM [facility] pCO2 Arterial 55(H) 35 - 45 mmHg 01/24/2018 1:55 PM [facility] pO2 Arterial 315(H) 71 - 95 mmHg 01/24/2018 1:55 PM [facility] HCO3 Arterial 24.2 22.0 - 26.0 mmol/L 01/24/2018 1:55 PM [facility] TCO2 Arterial 25.9 25.0 - 29.0 mmol/L 01/24/2018 1:55 PM [facility] Base Excess Arterial -3.1(L) -2.0 - 2.0 mmol/L 01/24/2018 1:55 PM [facility] Hemoglobin Arterial 9.5(L) 13.5 - 17.5 g/dL 01/24/2018 1:55 PM [facility] Oxyhemoglobin Arterial 98.1 95.0 - 100.0 [...] MD LAB - BLOOD GASES OR DERABLES [address] [phone] * (ABNORMAL) CBC W/O DIFFERENTIAL (01/24/2018 1:45 PM CDT) WBC 11.4(H) 3.5 - 10.5 10? 3 /uL 01/24/2018 2:00 PM T [facility] RBC 3.39(L) 4.30 - 5.70 10? 6 /uL 01/24/2018 2:00 PM [facility] Hemoglobin 9.5(L) 13.5 - 17.5 g/dL 01/24/2018 2:00 PM [facility] Hematocrit 29.6(L) 39.0 - 50.0 % 01/24/2018 2:00 PM [facility] MCV 87.3 81.0 - 97.0 fL 01/24/2018 2:00 PM [facility] MCH 28.0 28.0 - 34.0 pg 01/24/2018 2:00 PM [facility] MCHC 32.1 32.0 - 36.0 g/dL 01/24/2018 2:00 PM [facility] Platelet Count 170 150 - 400 10? 3 /uL 01/24/2018 2:00 PM [facility] RDW-SD 52.7(H) 36.0 - 50.0 fL 01/24/2018 2:00 PM [facility] RDW-CV 16.5(H) 11.2 - 14.8 % 01/24/2018 2:00 PM [facility] MPV 8.8(L) 9.3 - 12.8 fL 01/24/2018 2:00 PM [facility] Blood BLOOD SPECIMEN / Unknown Venipuncture / Unknown 01/24/2018 1:45 PM CDT 01/24/2018 1:53 PM CDT Fabienne Cardona MD LAB - HEMATOLOGY ORD ERABLES [facility] [address] [place] [address] * (ABNORMAL) PTT [facility] (01/24/2018 1:45 PM CDT) APTT >212.0(H) 23.0 - 38.4 Seconds 01/24/2018 2:47 PM [facility] Comment: Results called to and read back by Shira AT 2:46 PM, 01/24/2018. . Blood BLOOD SPECIMEN / Unknown Venipuncture / Unknown 01/24/2018 1:45 PM CDT 01/24/2018 1:53 PM CDT Fabienne Cardona MD LAB - COAGULATION OR DERABLES [address] [phone] * (ABNORMAL) PT-INR [facility] (01/24/2018 1:45 PM CDT) PT 17.4(H) 12.1 - 14.8 Seconds 01/24/2018 2:09 PM CDT [facility] INR 1.4 See Comment 01/24/2018 2:09 PM CDT [facility] Comment: Suggested therapeutic range for low-intensity [...] - COAGULATION OR DERABLES Performing Organization Address [facility]/ZIP Co de Phone Number [address] [phone] * FIBRINOGEN ACTIVITY (01/24/2018 1:45 PM CDT) Fibrinogen Clauss 296 200 - 400 mg/dL 01/24/2018 2:09 PM CDT [facility] Blood BLOOD SPECIMEN / Unknown Venipuncture / Unknown 01/24/2018 1:45 PM CDT 01/24/2018 1:53 PM CDT Fabienne Cardona MD LAB - COAGULATION OR DERABLES [address] [phone] * (ABNORMAL) BLOOD GASES ART [facility] OR (01/24/2018 12:47 PM CDT) pH Arterial 7.40 7.35 - 7.45 01/24/2018 1:00 PM [facility] pCO2 Arterial 38 35 - 45 mmHg 01/24/2018 1:00 PM [facility] pO2 Arterial 249(H) 71 - 95 mmHg 01/24/2018 1:00 PM [facility] HCO3 Arterial 22.9 22.0 - 26.0 mmol/L 01/24/2018 1:00 PM [facility] TCO2 Arterial 24.0(L) 25.0 - 29.0 mmol/L 01/24/2018 1:00 PM [facility] Base Excess Arterial -1.7 -2.0 - 2.0 mmol/L 01/24/2018 1:00 PM [facility] Hemoglobin Arterial 8.9(L) 13.5 - 17.5 g/dL 01/24/2018 1:00 PM [facility] Oxyhemoglobin Arterial 97.8 95.0 - 100.0 % 01/24/2018 1:00 PM [facility] Carboxyhemoglobin 0.3 0.0 - 3.0 % 01/24/2018 1:00 PM [facility] Methemoglobin 0.5 0.0 - 2.0 % 01/24/2018 1:00 PM [facility] FI O2 Arterial 85.0 % 01/24/2018 1:00 PM [facility] Ionized Calcium Whole Blood 1.00 mmol/L 01/24/2018 1:00 PM [facility] Adjusted Ionized Calcium 1.00(L) 1.19 - 1.34 mmol/L 01/24/2018 1:00 PM [facility] Sodium Whole Blood 125(L) 135 - 145 mmol/L 01/24/2018 1:00 PM [facility] Potassium Whole Blood 6.1(HH) 3.5 - 5.5 mmol/L 01/24/2018 1:00 PM [facility] Comment: Results called to and read back by Shira AT 12:59 PM, 01/24/2018. . Chloride Whole Blood 101 101 - 111 mmol/L 01/24/2018 1:00 PM [facility] Glucose Whole Blood 158(H) 70 - 110 mg/dL 01/24/2018 1:00 PM [facility] Lactic Acid Whole Blood 1.3 0.5 - 3.4 mmol/L 01/24/2018 1:00 PM [facility] Blood ARTERIAL BLOOD SPECIMEN / Unknown Venipuncture / Unknown 01/24/2018 12:47 PM CDT 01/24/2018 12:51 PM T Fabienne Cardona MD LAB - BLOOD GASES OR DERABLES [facility] [address] [phone] * (ABNORMAL) BLOOD GASES JOSEPH (01/24/2018 11:50 AM [facility]) pH Mixed Venous 7.31 7.30 - 7.40 [...] MD LAB - BLOOD GASES OR DERABLES [facility] [address] [phone] * (ABNORMAL) BLOOD GASES ART (01/24/2018 11:50 AM T) pH Arterial 7.35 7.35 - 7.45 01/24/2018 11:57 AM [facility] pCO2 Arterial 45 35 - 45 mmHg 01/24/2018 11:57 AM [facility] pO2 Arterial 218(H) 71 - 95 mmHg 01/24/2018 11:57 AM [facility] HCO3 Arterial 24.3 22.0 - 26.0 mmol/L 01/24/2018 11:57 AM [facility] TCO2 Arterial 25.7 25.0 - 29.0 mmol/L 01/24/2018 11:57 AM [facility] Base Excess Arterial -1.3 -2.0 - 2.0 mmol/L 01/24/2018 11:57 AM [facility] Hemoglobin Arterial 9.4(L) 13.5 - 17.5 g/dL 01/24/2018 11:57 AM [facility] Oxyhemoglobin Arterial 98.0 95.0 - 100.0 % 01/24/2018 11:57 AM [facility] Carboxyhemoglobin 0.2 0.0 - 3.0 % 01/24/2018 11:57 AM [facility] Methemoglobin 0.4 0.0 - 2.0 % 01/24/2018 11:57 AM [facility] FI O2 Arterial 75.0 % 01/24/2018 11:57 AM [facility] Blood, arterial ARTERIAL BLOOD SPECIMEN / Unknown Arterial Puncture / Unknown 01/24/2018 11:50 AM CDT 01/24/2018 11:55 AM CDT Fabienne Cardona MD LAB - BLOOD GASES OR DERABLES [facility] [address] [phone] * (ABNORMAL) BLOOD GASES ART [facility] OR (01/24/2018 9:53 AM T) pH Arterial 7.36 7.35 - 7.45 01/24/2018 10:04 AM [facility] pCO2 Arterial 47(H) 35 - 45 mmHg 01/24/2018 10:04 AM [facility] pO2 Arterial 196(H) 71 - 95 mmHg 01/24/2018 10:04 AM [facility] HCO3 Arterial 26.1(H) 22.0 - 26.0 mmol/L 01/24/2018 10:04 AM [facility] TCO2 Arterial 27.6 25.0 - 29.0 mmol/L 01/24/2018 10:04 AM [facility] Base Excess Arterial 0.3 -2.0 - 2.0 mmol/L 01/24/2018 10:04 AM [facility] Hemoglobin Arterial 11.2(L) 13.5 - 17.5 g/dL 01/24/2018 10:04 AM [facility] Oxyhemoglobin Arterial 97.6 95.0 - 100.0 % 01/24/2018 10:04 AM [facility] Carboxyhemoglobin 0.3 0.0 - 3.0 % 01/24/2018 10:04 AM [facility] Methemoglobin 0.5 0.0 - 2.0 % 01/24/2018 10:04 AM [facility] FI O2 Arterial 85.0 % 01/24/2018 10:04 AM [facility] Ionized Calcium Whole Blood 1.01 mmol/L 01/24/2018 10:04 AM [facility] Adjusted Ionized Calcium 0.99(L) 1.19 - 1.34 mmol/L 01/24/2018 10:04 AM [facility] Sodium Whole Blood 131(L) 135 - 145 mmol/L 01/24/2018 10:04 AM [facility] Potassium Whole Blood 4.6 3.5 - 5.5 mmol/L 01/24/2018 10:04 AM CDT [facility] Chloride Whole Blood 102 101 - 111 mmol/L 01/24/2018 10:04 AM CDT [facility] Glucose Whole Blood 82 70 - 110 mg/dL 01/24/2018 10:04 AM CDT [facility] Lactic Acid Whole Blood 1.1 0.5 - 3.4 mmol/L 01/24/2018 10:04 AM CDT [facility] Blood ARTERIAL BLOOD SPECIMEN / Unknown Venipuncture / Unknown 01/24/2018 9:53 AM CDT 01/24/2018 9:56 AM CDT Fabienne Cardona MD LAB - BLOOD GASES OR DERABLES [facility] [address] [place] [address] * PREPARE (CROSSMATCH) RBC UNIT(S), 4 Units (01/24/2018 7:31 AM CDT) Unit Description LR Red Cells [facility] BLOOD [facility] LAB Unit ABO O [facility] LAB Unit Rh NEG [facility] LAB Product Code RL1 [facility] BLO OD BANK LAB Unit Number [id number] [facility] Unit Status Selected [facility] BLOO D BANK LAB Product Number [id number] [facility] B LOOD [facility] LAB Blood Type Barcode 9500 [facility] LAB Unit Description LR Red Cells [facility] LAB Unit ABO O [facility] BLOOD [facility] LAB Unit Rh NEG [facility] BLOOD [facility] LAB Product Code RL1 [facility] BLO OD BANK LAB Unit Number [id number] [facility] BLO[facility] LAB Unit Status Selected [facility] BLOO D BANK [facility] Product Number [id number] [facility] B LOOD [facility] Blood Type Barcode 9500 [facility]OD [facility] Product Code RL1 [facility] BLO OD BANK LAB Unit Donor # [id number] [facility] B[facility] Unit Status released [facility] BLOO D BANK LAB Product Code RL1 [facility] BLO OD BANK LAB Unit Donor # [id number] [facility] BLOOD [facility] Unit Status released [facility] BLOO D BANK LAB Blood Bank BLOOD SPECIMEN / Unknown 01/24/2018 7:31 AM CDT 01/24/2018 7:31 AM CDT Fabienne Cardona MD LAB - BLOOD BANK ORD ERABLES [facility] BLOOD [facility] LAB [address] * PREPARE (CROSSMATCH) RBC UNIT(S), 6 Units (01/24/2018 7:31 AM CDT) Unit Description LR Red Cells [facility] BLOOD [facility] Unit ABO O [facility] Unit Rh NEG [facility] BLOOD [facility] Product Code RL1 [facility] BLO OD BANK LAB Unit Number [id number] [facility] BLOOD [facility] Unit Status Selected [facility] BLOO D BANK LAB Product Number [id number] [facility] B LOOD [facility] LAB Blood Type Barcode 9500 [facility] B[facility]OD [facility] Unit Description LR Red Cells [facility] BLOOD [facility] Unit ABO O [facility] BLO[facility] Unit Rh NEG [facility] BLOOD [facility] Product Code RL1 [facility] BLO OD [facility]ANK LAB Unit Number [id number] [facility] BLOOD [facility] Unit Status Selected [facility] BL[facility] D [facility]ANK LAB Product Number [id number] [facility] B LOOD [facility] LAB Blood Type Barcode 9500 [facility] B[facility]OD [facility] Unit Description LR Red Cells [facility] BLOOD [facility] Unit ABO O [facility] B[facility] Unit Rh NEG [facility] BLOOD [facility] Product Code RL1 [facility] BLO OD [facility]ANK LAB Unit Number [id number] [facility] BLOOD [facility] Unit Status Selected [facility] BL[facility] D [facility]ANK LAB Product Number [id number] [facility] B LOOD [facility] LAB Blood Type Barcode 9500 [facility] B[facility]OD [facility] Unit Description LR Red Cells [facility] BLOOD [facility] Unit ABO O [facility] B[facility] Unit Rh NEG [facility] BLOOD [facility] Product Code RL1 [facility] BLO OD [facility] Unit Number [id number] [facility] B[facility] Unit Status Selected [facility] BL[facility] D [facility]ANK LAB Product Number [id number] [facility] B LOOD [facility]ANK LAB Blood Type Barcode 9500 [facility] B[facility]OD [facility] Unit Description LR Red Cells [facility] BLOOD [facility] Unit ABO O [facility] B[facility] Unit Rh NEG [facility] BLOOD [facility] Product Code RL1 [facility] BLO OD [facility] Unit Number [id number] [facility] BLOOD [facility] Unit Status Selected [facility] BL[facility] D [facility] Product Number [id number] [facility] B LOOD [facility] LAB Blood Type Barcode 9500 [facility] BLO[facility] Unit Description LR Red Cells [facility] BLOOD [facility] Unit ABO O [facility] B[facility] Unit Rh NEG [facility] BLOOD [facility] Product Code RL1 [facility] BLO OD [facility]ANK LAB Unit Number [id number] [facility] BLOOD [facility] Unit Status Selected [facility] BL[facility] D [facility]ANK LAB Product Number [id number] [facility] B LOOD [facility]ANK LAB Blood Type Barcode 9500 [facility] BLOOD [facility] Product Code RL1 [facility] BLO OD [facility]ANK LAB Unit Donor # [id number] [facility] BLOOD [facility] Unit Status released [facility] BLOO D BANK LAB Product Code RL1 [facility] BLO OD [facility]ANK LAB Unit Donor # [id number] [facility] BLOOD [facility] Unit Status released [facility] BL[facility] D [facility]ANK LAB Product Code RL1 [facility] BLO OD [facility]ANK LAB Unit Donor # [id number] [facility] BLOOD [facility] Unit Status released [facility] BL[facility] D [facility]ANK LAB Product Code RL1 [facility] BLO OD BANK LAB Unit Donor # [id number] [facility] BLOOD [facility] Unit Status released [facility] BLOO D BANK LAB Product Code RL1 [facility] BLO OD BANK LAB Unit Donor # [id number] [facility] BLOOD [facility] Unit Status released [facility] BL[facility] D [facility]ANK LAB Product Code RL1 [facility] BLO OD BANK LAB Unit Donor # [id number] [facility] BLOOD [facility]ANK LAB Unit Status released [facility] BLOO D BANK LAB Blood Bank BLOOD SPECIMEN / Unknown 01/24/2018 7:31 AM CDT 01/24/2018 7:31 AM CDT Ethan Hancock MD LAB - BLOOD BANK ORD ERABLES [facility] BLOOD BANK LAB [address] * GLUCOSE - POINT OF CARE (01/24/2018 7:28 AM CDT) [facility] Glucose WB/POC 78 70 - 115 mg/dL 01/24/2018 7:41 AM CDT [facility] Blood BLOOD SPECIMEN / Unknown 01/24/2018 7:28 AM CDT 01/24/2018 7:41 AM CDT Narrative [facility] - 01/24/2018 7:41 AM CDT Buck Presser: [email or web address] ??NIRU LUIS Fabienne Cardona MD LAB - POINT OF CARE ORDERABLES Performing Organization Address [facility] Co de Phone Number [facility] [address] [place] [address] * TYPE + SCREEN PANEL (01/24/2018 7:21 AM CDT) Antibody Screen NEG 8 8:28 AM CDT [facility] BLOOD BANK LAB ABO Rh O NEG 01/24/2018 8:28 AM CDT [facility] BLOOD BANK LAB Blood Bank BLOOD SPECIMEN / Unknown Venipuncture / Unknown 01/24/2018 7:21 AM CDT 01/24/2018 7:30 AM CDT Ethan Hancock MD LAB - BLOOD BANK ORD ERABLES Performing Organization Address [facility] Co de Phone Number [facility] BLOOD BANK LAB [address] documented in this encounter Visit Diagnoses Diagnosis S/P CABG x 3- Primary Postsurgical aortocoronary bypass status Status post cardiac surgery Encounter for transesophageal echocardiogram performed as part of open chest procedure Coronary artery disease involving coronary bypass graft of robinson heart with unstable angina pectoris (HCC) S/P CABG x 3 Postsurgical aortocoronary bypass status CAD (coronary artery disease) Coronary atherosclerosis of unspecified type of vessel, robinson or graft HTN (hypertension) Unspecified essential hypertension DM (diabetes mellitus) (HCC) Type II or unspecified type diabetes mellitus without mention of complication, not stated as uncontrolled Diagnosis unknown Other unknown and unspecified cause of morbidity or mortality documented in this encounter Administered Medications Inactive Administered Medications - up to 3 most recent administrations Medication Order MAR Action Action Date Dose Rate Site 0.9% NaCl injection 10 mL 10 mL, Intracatheter, EVERY 8 HOURS, 1095 doses, First dose on Loreta 01/24/18 at 1600, Last dose on Sun01/24/19 at [...] Given 01/30/2018 1:58 PM CDT 10 mL albuterol-ipratropium (DUO-NEB) nebulizer solution 3 mL 3 [...] on Sun01/24/18 at 2221, Until Sun01/30/18 at 2000, As needed for iCa less than 1.2, recheck iCa in 30 minutes and repeat to maintain iCa greater than 1.2 $ New Bag/Syringe 01/25/2018 4:27 PM CDT 4 g 120 mL/hr $ New Bag/Syringe 01/24/2018 10:55 PM CDT 2 g 120 m L/hr dextrose IV 12.5-25 g 12.5-25 g (25-50 mL), Intravenous, PRN, Bedside Glucose less than 70 mg/dL -If NOT able to eat and/or NPO and with IV Access, Starting on Loreta 01/24/18 at [...] NOTIFY PROVIDER OF HYPOGLYCEMIC EVENT. furosemide (LASIX) injection 40 mg 40 mg, [...] 2200, Last dose on Sun01/26/19 at 1400 $ Given 01/30/2018 1:58 PM CDT 5,000 Units Abdominal Tissue $ Given 01/30/2018 6:07 AM CDT 5,000 Units R ight Arm $ Given 01/29/2018 9:13 PM CDT 5,000 Units A bdominal Tissue heparin injection PRN, Starting on Loreta 01/24/18 at 0715, Until Loreta 01/24/18 at 1526, Intra-op $ Given 01/24/2018 7:15 AM CDT 10,000 Units insulin aspart (NovoLOG) pen 0-12 Units 0-12 [...] Given 01/30/2018 6:06 PM CDT 2 Units Right Arm $ Given 01/30/2018 12:22 PM CDT 2 Units L eft Arm $ Given 01/30/2018 8:36 AM CDT 2 Units Le ft Arm magnesium hydroxide (MILK OF MAGNESIA) suspension 30 [...] Given 01/29/2018 8:29 AM CDT 800 mg metoprolol tartrate (LOPRESSOR) tablet 25 mg 25 mg, Oral, 2 TIMES DAILY, 727 doses, First dose (after last modification) on 01/27/18 at 2100, Last dose on 01/25/19 at 2100 $ Given 01/30/2018 8:25 AM CDT 25 mg $ Given 01/29/2018 8:33 PM CDT 25 mg $ Given 01/29/2018 8:30 AM CDT 25 mg mupirocin calcium (BACTROBAN) 2 % cream Topical, 2 TIMES DAILY, 730 doses, First dose on Sun01/24/18 at 2100, Last dose on Sun01/24/19 at 0900, Apply to both nares $ Given 01/30/2018 8:36 AM CDT $ Given 01/29/2018 9:14 PM CDT $ Given 01/29/2018 8:31 AM CDT Na res-Bilateral NaCl 0.9 % 2,000 mL with vancomycin (VANCOCIN) 2 g irrigation PRN, Starting on Sun01/24/18 at 0715, Until Loreta 01/24/18 at 1526, Intra-op $ Given 01/24/2018 7:15 AM CDT oxyCODONE-acetaminophen (PERCOCET) 5-325 MG tablet 1 tablet 1 tablet, Oral, EVERY 4 HOURS PRN, Moderate Pain, Starting on Sun01/24/18 at 1813, Until Sun01/30/18 at 2000 oxyCODONE-acetaminophen (PERCOCET) 5-325 MG tablet 2 tablet 2 tablet, Oral, EVERY 4 HOURS PRN, Severe Pain, Starting on Sun01/24/18 at 1813, Until Sun01/30/18 at 2000 $ [...] Given 01/28/2018 8:35 AM CDT 40 mg papaverine injection PRN, Starting on Loreta 01/24/18 at 0715, Until Loreta 01/24/18 at 1526, Intra-op $ Given 01/24/2018 7:20 AM CDT 60 mg $ Given 01/24/2018 7:15 AM CDT 60 mg polyethylene glycol 3350 (MIRALAX) packet 17 g 17 g, Oral, DAILY, 30 doses, First dose on Sun01/25/18 at 0900, Last dose on Sun02/23/18 at 0900, Mix in 8 ounces of water, juice, soda, coffee or tea prior to administration $ Given 01/30/2018 8:25 AM C DT 17 g $ Given 01/29/2018 8:31 AM CDT 17 g $ Given 01/28/2018 8:34 AM CDT 17 g potassium chloride (KLOR-CON) packet 20 mEq 20 mEq, Oral, 2 TIMES DAILY, 730 doses, First dose on 01/27/18 at 1100, Last dose on Sun01/26/19 at 2100, DISSOLVE IN 120 ML OF COLD WATER OR JUICE AND DRINK SLOWLY $ Given 01/30/2018 8:26 AM CDT 20 mEq $ Given 01/29/2018 8:33 PM CDT 20 mEq $ Given 01/29/2018 8:30 AM CDT 20 mEq senna-docusate (SENOKOT-S) tablet 1 tablet 1 tablet, Oral, AT BEDTIME, 30 doses, First dose on Sun01/25/18 at 2100, Last dose on Sun02/23/18 at 2100 $ Given 01/29/2018 8:33 PM CDT 1 tablet $ Given 01/28/2018 9:27 PM CDT 1 tablet $ Given 01/27/2018 8:00 PM CDT 1 tablet vancomycin (VANCOCIN) injection PRN, Starting on Sun01/24/18 at 0715, Until Sun01/24/18 at 1526, Intra-op $ Given 01/24/2018 7:15 AM CDT 8 g documented in this encounter Active and Recently [...] ZACHARY)2114 ($ Given - Provider: Sloane Andrade, ZACHARY) 0607 ($ Given - Provider: Sloane Andrade, RN)1358 ($ Given - Provider: Ruthann Becker RN) albuterol-ipratropium (DUO-NEB) nebulizer solution 3 mL 3 mL, Inhalation, EVERY 4 HOURS, 52 doses, First dose on Loreta 01/24/18 at 1600, Last dose on 02/02/18 at 0500 0133 ($ Given - Provider: Benton Villaseñor WINDOW REPAIRER)0508 ($ Given - Provider: Benton Villaseñor WINDOW REPAIRER)0954 ($ Given - Provider: Martinez Liriano [facility])1353 ($ Given - Provider: Martinez Liriano [facility])1654 ($ Given - Provider: Martinez Liriano [facility])2109 ($ Given - Provider: Nehemias Bruno WINDOW REPAIRER) 0114 ($ Given - Provider: Nehemias Bruno WINDOW REPAIRER)0518 ($ Given - Provider: Nehemias Bruno WINDOW REPAIRER)0840 ($ Given - Provider: Abdon Vazquez [facility])1331 ($ Given - Provider: Abdon Vazquez WINDOW REPAIRER)1602 ($ Given - Provider: Av Avery [facility])2103 ($ Given - Provider: Nehemias Bruno [facility]) 0054 ($ Given - Provider: Nehemias Bruno WINDOW REPAIRER)0505 ($ Given - Provider: Nehemias Bruno WINDOW REPAIRER)1052 ($ Given - Provider: Martinez Liriano [facility])1324 ($ Given - Provider: Martinez Liriano WINDOW REPAIRER)1622 ($ Given - Provider: Martinez Liriano WINDOW REPAIRER) aspirin (ASPIRIN) chew tablet 81 mg 81 [...] 0835 ($ Given - Provider: Sage Pena RN)1829 ($ Given - Provider: Pilar Narvaez RN) 0831 ($ Given - Provider: Sage Pena RN)1733 ($ Given - Provider: Sage Pena RN) 0825 ($ Given - Provider: Ruthann Becker RN)1736 (Not Administered - Provider: Ruthann Becker RN [...] ZACHARY)1806 ($ Given - Provider: Ruthann Becker, ZACHARY) magnesium oxide (MAG-OX) tablet 800 mg 800 [...] Pena RN)2032 ($ Given - Provider: Sloane Andrade RN) 0825 ($ Given - Provider: Ruthann Becker, ZACHARY) mupirocin calcium (BACTROBAN) 2 % cream Topical, 2 TIMES DAILY, 730 doses, First dose on Sun01/24/18 at 2100, Last dose on Sun01/24/19 at 0900, Apply to both nares 0835 ($ Given - Provider: Sage Pena RN)2134 ($ Given - Provider: Pilar Narvaez RN) 0831 ($ Given - Provider: Sage Pena RN)211 ($ Given - Provider: Sloane Andrade, ZACHARY) 0836 ($ Given - Provider: Ruthann Becker, [...] ($ Given - Provider: Ruthann Becker, ZACHARY) polyethylene glycol 3350 (MIRALAX) packet 17 g [...] Becker, ZACHARY) potassium chloride (KLOR-CON) packet 20 mEq(Linked Group 1) 20 mEq, Oral, 2 TIMES DAILY, 730 doses, First dose on 01/27/18 at 1100, Last dose on 01/26/19 at 2100, DISSOLVE IN 120 ML OF COLD WATER OR JUICE AND DRINK SLOWLY 0834 ($ Given - Provider: Sage Pena RN)2127 [...] ($ Given - Provider: Sloane Andrade, ZACHARY) ievny-fbk-kyhnjlqd (HOG) enema 360 mL (COMPLETED) 360 mL, Rectal, ONCE, 1 dose, On Sun01/29/18 at 0915, Please give if patient unable to have BM independently by mid-morning. 1134 ($ Given - Provider: Sage Pena, RN) PRN Medication Order 01/28/2018 01/29/2018 01/30/2018 0.9% NaCl injection 10 mL 10 mL, Intracatheter, PRN, Other, Starting on Sun01/24/18 at 1526, Until Sun01/30/18 at 1999, FLUSH PRN Until Discontinued 1358 ($ Given [...] Becker RN)1357 (See Alternative - Provider: Ruthann Becker RN) oxyCODONE-acetaminophen (PERCOCET) 5-325 MG tablet 2 tablet(Linked [...] Andrade RN)0940 ($ Given - Provider: Ruthann Becker RN)1357 ($ Given - Provider: Ruthann Becker RN - Comment: sternotomy) Linked Groups Order Group 1: furosemide (LASIX) injection 40 mgJump to med 40 mg, Intravenous, 2 TIMES DAILY, 730 doses, First dose on 01/27/18 at 1700, Last dose on Sun01/27/19 at 0900 And potassium chloride (KLOR-CON) packet [...] 01/24/18 at 1813, Until Sun01/30/18 at 1999 Or oxyCODONE-acetaminophen (PERCOCET) 5-325 MG tablet 2 tabletJump to med 2 tablet, Oral, EVERY 4 HOURS PRN, Severe Pain, Starting on Loreta 01/24/18 at 1813, Until Sun01/30/18 at 1999 documented in this encounter Care Teams Interior Decorator Paperhanging Relationship Specialty Start Date End Date Lisy Olmedo MD PCP - General 04/20/09 05/09/22 documented as of this encounter
--- OUTSIDE RECORDS SUMMARY | 2024-10-11 19:47 | XMS_ITS | Encounter Summary ---
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 [place] [address] 02/10/2025 10:00 AM CDT Office Visit [facility] - Cardiology [address] [facility] [address] [place] [address] Curly Lay MD [id number] [place] [address] documented as of this encounter Visit Diagnoses Not on filedocumented in this encounter Care Teams Bulb Grader Relationship Specialty Start Date End Date Lisy Olmedo MD PCP - General 04/20/09 05/09/22 documented as of this encounter
--- OUTSIDE RECORDS SUMMARY | 2024-10-11 19:47 | XMS_ITS ---
Author Organization [facility] Health Address [address] [place] [address] Care Team Providers Care Service Coordinator Elderly Facility Name Role Phone Sylvain Daniels MD Unavailable [phone] Kiana Cole MD Primary Care Provider QMM & AWV - [facility] Status:Closed (Closed) Start date:08/30/2022 Enrollment date:09/05/2022 Enrollment reason:Identified using claims or encounter data End date:09/05/2022 Close reason:Unable to reach patient Continued Care and Services Coordination
--- OUTSIDE RECORDS SUMMARY | 2024-10-11 19:47 | XMS_ITS | Encounter Summary ---
Author Organization [facility] Health Address [address] [facility] [place] [address] Care Team Providers Care Food Production Worker Name Role Phone Lisy Olmedo MD Primary Care Provide r Reason for Visit * Auth/Cert Specialty Diagnoses / Procedures Referred By Contac t Referred To Contact Diagnoses Diagnosis unknown coronary artery disease hypertension Procedures BYPASS GRAFT CORONARY ARTERY (CABG) Referral ID Status Reason Start Date Expiration Date Visits Re quested Visits Authorized [id number] 1 1 Encounter Details Date Type Department Care Team (Late st Contact Info) Description 01/24/2018 8:01 AM CDT Anesthesia Event [facility] OP [address] [place] [phone] Kel Granger MD [address] [place] [address] Hi Calix MD [address] [place] [address] Anesthesia Record Procedure Summary Procedure Name Responsible Anesthesiologist Anesthesia Start Time Anesthesia Stop Time Coronary artery bypass graft x 3 (Chest) Kel Granger MD 01/24/18 0801 01/24/18 1542 Events Date Time Event Comment 01/24/2018 0738 0801 An Start 0801 Pt In Room 0804 An Start Data 0814 Anes Timeout 0818 Insert Art Line 0821 Induction 0840 An Intubation 0905 an AMANDO Insert 0920 Central Line Insert 0925 Anes Ready 0949 Time Out Anesthesia part icipated in timeout at the time documented in the record by nursing 0950 Quick Note ACT 134 0956 sternotomy 1110 Quick Note 1111 Heparin Administration 1112 An Aortic Cannula 1127 An CV Bypass init 1129 An Clamp On 1253 An Clamp Off 1306 An CV Bypass Ended 1331 Quick Note Unable to re-in flate L lung, mucus plug visible with FOB; ultimately able to clear mucous plug and reinflate L lung 1343 Protamine Admin 1348 Quick Note ACT 133 1410 Quick Note Sternotomy clos ure ACT 133 1523 an stop data 1523 Electnc Sig 1523 ANPTO2 1525 Pt out of Room 1542 An Stop Meds Name Total fentaNYL 250 mcg/5mL injection 750 mcg midazolam 2 mg/2mL injection 10 mg propofol 200mg/20mL injection 300 mg lidocaine (XYLOCAINE MPF) 2% injection 1 00 mg succinylcholine 20 mg/mL injection 300 m g rocuronium 10 mg/mL injection 260 mg EPINEPHrine 10 mcg/mL syringe 20 mcg protamine 10 mg/mL injection 460 mg vancomycin 1,000 mg IVPB 1,000 mg calcium chloride 10% injection 2 g heparin 1000 units/ml injection 46,000 U nits phenylephrine (PF) 100 mcg/mL prefilled syringe 700 mcg vasopressin (VASOSTRICT) 40 Units in dex trose 5 % 40 mL infusion 3.1 Units propofol 500 mg/50 mL 135.4 mg NS (0.9% NaCl) 1,000 mL albumin 5% 1,000 mL albumin 5% 0 mL norepinephrine 8 mg/250mL infusion 0 mL Isolyte-S infusion 1,000 mL * Agents Name Insp. N2O Exp. Sevoflurane Exp. N2O Insp. Sevoflurane * Blood No blood administrations on file. Lines, Drains, and Airways Type Details Placement Removal Peripheral IV Date: 01/24/18; Time : 07; Orientation: Left; Placed By: Lisa Corado Rn; Tolerance: Well 01/24/18 0730 by Lorna Edmonds RN 01/24/18 1500 by Toy Dugan RN Arterial Line Date: 01/24/18; Time : 0818; Placed By: PM; Location: radial; Orientation: Left; Gauge: 20; Prep: Chlorhexidine ; Anesthetic Used: Yes; Line Secured: Securement device; Tolerance: Well 01/24/18 0818 by Hi Calix MD 01/25/18 1600 by Adriana Santana RN Urethral Catheter 01/24/18; 0820; Ty bowles RN (without difficulty; yellow/clear urine return); Straight-tip, Latex, Temperature probe; No; 16; 10 mL; General Anesthesia; 01/25/18; 1700; Per order 01/24/18 0820 by Ruthann Hooks RN 01/25/18 1700 by Adriana Santana RN ETT Date: 01/24/18; Time : 0840; Placed By: MB; Vent: difficult mask; Induction: Standard IV; Blade Type: Jie; Blade Size: 4; Laryngoscopy View: Grade 2 (partial cords); Intubation Adjuncts: Stylet, Bougie; Tube: Endotracheal Tube; Placement: Oral; Tube Type: Cuffed-inflated; Tube Size(mm): 8 MM; Depth of Insertion: 23 CM; Measured From: teeth; Attempts: 2; Cuff Infated: Air; Cuff Pressure(cm H2O): 20 cm H2O; Verified By: Direct visualization, CO2 Monitor, Chest Auscultation, Bilateral breath sounds 01/24/18 0840 by Hi Calix MD 01/24/18 1522 by Hi Calix MD Central Line Date: 01/24/18; Time : 0920; Placed By: PM; Orientation: Left; Lumens: Double 01/24/18 0920 by Hi Calix MD 01/25/18 1600 by Adriana Santana RN Chest Tube 01/24/18; 1008; #1; Straight; 28 FR; Anterior, Left; Pleural; Suction; General Anesthesia; 01/28/18 01/24/18 1008 by Ruthann Hooks RN 01/28/18 0000 by Pilar Narvaez RN Procedural Site (Incision) 01/24/18; 1021; Chest; Optifoam to midline chest [id number] gauze, medipore tape to chest tube insertion sites ; 01/31/18; 0100 01/24/18 1021 by Ruthann Hooks RN 01/31/18 0100 by Generic, Auto Release Procedural Site (Incision) 01/24/18; 1021; Right; Leg; Exofin, 4x4 gauze, blue towel, cleve wrap; 01/31/18; 0100 01/24/18 1021 by Ruthann Hooks RN 01/31/18 0100 by Generic, Auto Release Chest Tube 01/24/18; 1230; #2; Straight; 36 FR; Anterior; Mediastinal; Suction; General Anesthesia; 01/25/18; 1700 01/24/18 1230 by Ruthann Hooks RN 01/25/18 1700 by Adriana Santana RN Chest Tube 01/24/18; 1231; #3; Angeled ; 36 FR; Anterior; Mediastinal; Suction; General Anesthesia; 01/25/18; 1700 01/24/18 1231 by Ruthann Hooks RN 01/25/18 1700 by Adriana Santana RN Procedural Site (Incision) 01/24/18; 1500; Right; Arm; Artery graft site; 01/31/18; 0100 01/24/18 1500 by Toy Dugan RN 01/31/18 0100 by Generic, Auto Release documented in this encounter Social History Tobacco Use Types Packs/Day Years Used Date Smoking Tobacco: Light Smoker Cigars Smokeless Tobacco: Current Comments:3-4 times / month Sex and Gender Information Value Date Recorded Sex Assigned at Not on file Gender Identity Not on file Sexual Orientation Not on file documented as of this encounter Progress Notes * Danny Gorman, - 01/25/2018 7:50 AM CDT ANESTHESIA POSTOP EVALUATION NOTE Procedure: Coronary artery bypass graft x 3 (N/A Chest) Yaya Vazquez is a 57 y.o. male Patient Vitals for the past 6 hrs: Temp Pulse Resp SpO2 O2 L/M O2 DEVICE Activity Pain Scale/Observation Pain Rating Score #1 Pain Location Pain Orientation Pain Quality Aggravating Factors Functional Goal # Pain Intervention(s) Sedation Level 01/25/18 0745 - - - - - - - N 9 Chest Mid Constant Activity 3 Medication (see MAR) 1-Awake and alert 01/25/18 0700 - 90 30 94 % - - - - - - - - - - - - 01/25/18 0630 - - - - - - - N 3 - - - - - Non-pharmacological - 01/25/18 0600 - 80 27 96 % - - In Bed - - - - - - - - - 01/25/18 0531 - - - - - - - - 6 - - - - - - - 01/25/18 0500 - 81 25 98 % - - - - - - - - - - - - 01/25/18 0451 - - - - - - - N 3 - - - - - Non-pharmacological - 01/25/18 0438 - - - - 2 Nasal Cannula - - - - - - - - - - 01/25/18 0407 - - - - - - - N 8 Incisional Mid Aching - - Medication (see MAR) - 01/25/18 0400 98.9 ??F (37.2 ??C) 80 24 99 % - - In Bed No/denies pain - - - - - - - - 01/25/18 0300 - 80 18 99 % - - - - - - - - - - - - 01/25/18 0200 - 80 16 99 % - - In Bed N 3 - - - - - Non-pharmacological - Anesthesia Type: general Pre-op Diagnosis Codes: CAD Postop Diagnosis: See Surgeon Note Mental Status: awake, alert, sufficiently recovered from acute administration of anesthesia to participate in the evaluation and neurologic status has returend to expected level of consciousness Neuro Status: No numbess, tingling or visual disturbances Respiratory Function: requires O2 Cardiac Function: unstable/require support Postop Pain: acceptable to the patient Postop Hydration: requires support Postop Nausea: treated/stable Assessment: patient tolerated procedure well and no evidence of recall Patient Disposition: Release from Anesthesia Care * Kel Granger MD - 01/24/2018 3:55 PM CDT ANESTHESIA POSTOP EVALUATION NOTE Procedure: Coronary artery bypass graft x 3 (N/A Chest) Yaya Vazquez is a 57 y.o. male No data found. Anesthesia Type: general Pre-op Diagnosis Codes: * Diagnosis unknown [R69] Postop Diagnosis: See Surgeon Note Mental Status: sedated and neurologic status has returend to expected level of consciousness Respiratory Function: mechanical ventilation and requires O2 Cardiac Function: unstable/require support (Vaso 0.04 units/min; Norepi 0.02mcg/kg/min) Postop Pain: acceptable to the patient Postop Hydration: adequate Postop Nausea: none Assessment: no apparent anesthetic complications, patient tolerated procedure well and no evidence of recall Patient Disposition: Follow Up Needed Additional Comments: Post-CABG pt; transported with full monitoring and O2; report given to ICU team Non Reportable Improvement Section: Pulmonary: Bronchospasm (during induction) documented in this encounter Consult Notes * Kel Granger MD - 01/23/2018 1:33 PM CDT ANESTHESIA PREOPERATIVE EVALUATION NOTE Procedure: coronary artery bypass graft x 3 (N/A ) Vitals: No data found. ANESTHESIA PRE-EVALUATION NOTE History of Present Illness: 57y M with h/o CAD, HTN, NIDDM2, who presents for CABG after LHC demonstrated multivessel disease. He has had L chest pain c/b n/v occurring about weekly with variable durations. Positive nuclear stress prompted LHC. Currently treated with SL NTG, ASA, statin, BB. Of note, pt also prescribed Sildenafil. EF 47% on Nuc Stress (METS 6-7) LHC - Focal stenoses of proximal and mid circumflex; proximal LAD, and distal RCA. CXR - unremarkable CT Scan - possible dilated aortic root Carotid Duplex - unremarkable Physical Exam: Orientation: Orientation X3 Airway/Mallampati Score: II Mouth Opening Distance: 3 fingerwidths Neck ROM: full TM Distance: > 3 FB Teeth: normal Heart: regular rate rhythm Lungs: normal Abdomen Exam: obese Review of Systems: History of anesthetic complications: No GERD: GERD: No Poor Exercise Tolerance: Yes Recent Chest Pain: Yes Shortness of Breath: Yes AICD/Pacemaker: No Renal Disease: No ANESTHESIA PLAN ASA Score: 4 NPO Status: No solids since midnight Anesthesia Plan: general ETT Planned Induction: intravenous Planned Adjuncts: art line, CVP, AMANDO and Roark Planned Postop Destination: ICU ICU Plans: ventilation and hemodynamic monitoring Anesthetic plan was discussed with: patient, family, sibling(s) Anesthetic Plan discussion was: Consented Use of blood products were discussed with: patient, family, sibling(s) Use of blood product discussion was: Consented The patient's procedural Anesthetic Plan with discussed with the anesthesiologist and resident. Attending Provider: I have reviewed the chart, I have interviewed and examined the patient, I agree with the documentation and have dicussed the anesthesia plan w/ the Resident, TREE DEADENER or AA and The pateint agrees with the plan and accpets the risks and benefits I attest to documenting, updating or reviewing a patient's current medications using all immediate resources available on the date of the encounter. This list must include ALL known prescriptions, [id number], herbals, and vitamin/mineral/dietary (nutritional) supplements AND must contain the medications' name, dosages, frequency and route of administration. BMI, Height, Weight Tobacco History Estimated body mass index is 35.91 kg/(m^2) as calculated from the following: Height as of 12/21/17: 1.93 m (6' 4 ). Weight as of 12/21/17: 133.8 kg (295 lb). History Smoking Status ??? Not on file Smokeless Tobacco ??? Not on file Alcohol History Drug History History Alcohol use Not on file History Drug Use Not on file Outpatient Medications: Inpatient Medications: No current outpatient prescriptions on file. No current facility-administered medications for this encounter. Allergies: No Known Allergies Problem List: Patient Active Problem List Diagnosis Date Noted ??? CAD (coronary artery disease) 01/23/2018 Priority: Not Prioritized ??? HTN (hypertension) 01/23/2018 Priority: Not Prioritized ??? DM (diabetes mellitus) 01/23/2018 Priority: Not Prioritized Medical History: Past Medical History: Diagnosis Date ??? CAD (coronary artery disease) ??? DM (diabetes mellitus) ??? HTN (hypertension) Surgical History: Past Surgical History: Procedure Laterality Date ??? Tonsillectomy Lab Tests: Recent Labs Component Name 01/11/18 1548 WBC 7.0 HGB 13.0* HCT 38.8* INR 0.9 PTT 28.6 Recent Labs Component Name 01/11/18 1548 NA 140 POTASSIUM 4.1 CO2 27 BUN 15 CREATININE 0.9 Recent Labs Component Name 01/11/18 1548 CALCIUM 9.6 MAGNESIUM 1.3* ALT 13 AST 14 No results for input(s): HCG in the last 04198 hours. documented in this encounter Miscellaneous Notes * Anesthesia Transfer of Care - Hi Calix MD - 01/24/2018 3:42 PM CDT ANESTHESIA TRANSFER OF CARE NOTE Today's Date: 01/24/2018 Date of : 1960 Patient: Yaya Vazqeuz Procedure(s) with comments: Coronary artery bypass graft x 3 - [address]38, [id number] Surgeon(s): Primary: Fabienne Cardona MD Preop Diagnosis: Pre-op Diagnois: * Diagnosis unknown [R69] Post-op Diagnosis: * Diagnosis unknown [R69] . Allergies Allergen Reactions ??? Pcn [Penicillins] Swelling eyes swelled shut 50 years ago Vitals: No data found. Lines, Drains, and Airways Type Details Placement Removal Peripheral IV 01/24/18; 0730; Left; Hand; Lisa Corado Rn; 18 Gauge; Anatomical Landmarks; 1; None; Well; Yes 01/24/18 0730 by Lorna Edmonds RN Arterial Line 01/24/18; 0818; PM; Left; radial; 20; Chlorhexidine ; Yes; Securement device; Well 01/24/18 0818 by Hi Calix MD ETT 01/24/18; 0840; MB; difficult mask; Standard IV; Jie; 4; Grade 2 (partial cords); Stylet,Bougie; Endotracheal Tube; Oral; Cuffed-inflated; 8 MM; 23 CM; teeth; 2; Air; 20 cm H2O; Direct visualization, CO2 Monitor, Chest Auscultation, Bilateral breath sounds; 01/24/18; 1522 01/24/18 0840 by Hi Calix MD 01/24/18 1522 by Hi Calix MD Central Line 01/24/18; 0920; PM; Yes; None; Left; Internal Jugular; Double; 11.5; 9 Guage 01/24/18 0920 by Hi Calix MD Chest Tube 01/24/18; 1008; #1; Straight; 28 FR; Anterior, Left; Pleural; Suction; General Anesthesia 01/24/18 1008 by Ruthann Hooks RN Chest Tube 01/24/18; 1230; #2; Straight; 36 FR; Anterior; Mediastinal; Suction; General Anesthesia 01/24/18 1230 by Ruthann Hooks RN Chest Tube 01/24/18; 1231; #3; Angeled ; 36 FR; Anterior; Mediastinal; Suction; General Anesthesia 01/24/18 1231 by Ruthann Hooks RN Intraprocedure I/O Totals Isolyte-S infusion Volume infused 1000 ml NS (0.9% NaCl) Volume infused 1000 ml albumin 5% Volume infused 1000 ml Patient Transfer Location: ICU Transport Airway: intubation, supplemental O2 and ventilatory assistance with bag valve mask Transport Monitoring: arterial line, heart rate, continuous pulse oximetry and youth nutritional monitor Complications: None Handoff Given? Yes Hi Calix MD documented in this encounter Plan of Treatment Upcoming Encounters Date Type Department Care Team (Late st Contact Info) Description 10/20/2024 8:00 AM WIND TURBINE MACHINIST Office Visit [facility] - Family Medicine [address] [facility] [address] [place] [phone] Kiana Cole MD [address] [place] [address] 11/28/2024 9:00 AM WIND TURBINE MACHINIST Office Visit [facility] - Neurology [address] [facility] [place] [address] Aline Finch MD [address] [facility] [place] [address] 02/10/2025 10:00 AM CDT Office Visit [facility] - Cardiology [address] [facility], [facility] [address] [place] [phone] Curly Lay MD [address] [facility] [address] [place] [phone] documented as of this encounter Visit Diagnoses Not on filedocumented in this encounter Administered Medications Inactive Administered Medications - up to 3 most recent administrations Medication Order MAR Action Action Date Dose Rate Site 0.9% NaCl infusion Intravenous, CONTINUOUS PRN, Starting on Loreta 01/24/18 at 0744, Until Loreta 01/24/18 at 1542, Anesthesia Intra-op $ New Bag/Syringe 01/24/2018 7:44 AM CDT albumin human 5 % infusion CONTINUOUS PRN, Starting on Loreta 01/24/18 at 1402, Until Loreta 01/24/18 at 1542, Anesthesia Intra-op $ New Bag/Syringe 01/24/2018 2:02 PM CDT albumin human 5 % infusion Intravenous, CONTINUOUS PRN, Starting on Loreta 01/24/18 at 1406, Until Loreta 01/24/18 at 1542, Anesthesia Intra-op $ New Bag/Syringe 01/24/2018 2:50 PM CDT $ New Bag/Syringe 01/24/2018 2:06 PM CDT calcium chloride 10 % injection PRN, Other, Starting on Loreta 01/24/18 at 1015, Until Loreta 01/24/18 at 1542, Anesthesia Intra-op $ Given 01/24/2018 1: 07 PM CDT 1 g $ Given 01/24/2018 10:30 AM CDT 0.2 g $ Given 01/24/2018 10:28 AM CDT 0.2 g EPINEPHrine-NaCl 0.9% syringe Intravenous, PRN, Starting on Loreta 01/24/18 at 1313, Until Loreta 01/24/18 at 1542, Anesthesia Intra-op $ Given 01/24/2018 1:13 PM CDT 20 mcg fentaNYL (PF) (SUBLIMAZE) injection Intravenous, PRN, Starting on Loreta 01/24/18 at 0816, Until Loreta 01/24/18 at 1542, Anesthesia Intra-op $ Given 01/24/2018 10:44 AM CDT 150 mcg $ Given 01/24/2018 10:26 AM CDT 100 mcg $ Given 01/24/2018 8:58 AM CDT 100 mcg heparin injection PRN, Starting on Loreta 01/24/18 at 1016, Until Loreta 01/24/18 at 1542, Anesthesia Intra-op $ Given 01/24/2018 11:14 AM CDT 41,000 Units $ Given 01/24/2018 10:16 AM CDT 5,000 Units isolyte-S pH 7.4 infusion CONTINUOUS PRN, Starting on Loreta 01/24/18 at 0921, Until Loreta 01/24/18 at 1542, Anesthesia Intra-op $ New Bag/Syringe 01/24/2018 9:21 AM CDT lidocaine hcl (PF) (XYLOCAINE MPF) 2 % injection Infiltration, PRN, Starting on Loreta 01/24/18 at 0821, Until Loreta 01/24/18 at 1542, Anesthesia Intra-op $ Given 01/24/2018 8:21 AM CDT 100 mg midazolam (VERSED) injection Intravenous, PRN, Starting on Loreta 01/24/18 at 0817, Until Loreta 01/24/18 at 1542, Anesthesia Intra-op $ Given 01/24/2018 12:54 PM CDT 2 mg $ Given 01/24/2018 11:29 AM CDT 4 mg $ Given 01/24/2018 8:17 AM CDT 2 mg norepinephrine (LEVOPHED) 8 mg/250 ml infusion premix Intravenous, CONTINUOUS PRN, Starting on Loreta 01/24/18 at 0958, Until Loreta 01/24/18 at 1542, Anesthesia Intra-op Rate Change 01/24/2018 2:23 PM CDT 0.03 mL/hr Rate Change 01/24/2018 2:00 PM CDT 0.04 mL/hr Rate Change 01/24/2018 1:44 PM CDT 0.05 mL/hr phenylephrine (PF) prefilled syringe PRN, Starting on Loreta 01/24/18 at 1118, Until Loreta 01/24/18 at 1542, Anesthesia Intra-op $ Given 01/24/2018 2:56 PM CDT 100 mcg $ Given 01/24/2018 2:49 PM CDT 100 mcg $ Given 01/24/2018 2:35 PM CDT 100 mcg propofol (DIPRIVAN) infusion CONTINUOUS PRN, Starting on Loreta 01/24/18 at 1502, Until Loreta 01/24/18 at 1542, Anesthesia Intra-op $ New Bag/Syringe 01/24/2018 3:02 PM CDT 25 mcg/kg/min 20.31 mL/hr propofol (DIPRIVAN) injection Intravenous, PRN, Starting on Loreta 01/24/18 at 0821, Until Loreta 01/24/18 at 1542, Anesthesia Intra-op $ Given 01/24/2018 8:37 AM CDT 50 mg $ Given 01/24/2018 8:32 AM CDT 50 mg $ Given 01/24/2018 8:21 AM CDT 200 mg protamine injection Intravenous, PRN, Starting on Loreta 01/24/18 at 1343, Until Loreta 01/24/18 at 1542, Anesthesia Intra-op $ Given 01/24/2018 1:43 PM CDT 460 mg rocuronium (ZEMURON) injection Intravenous, PRN, Starting on Loreta 01/24/18 at 0828, Until Loreta 01/24/18 at 1542, Anesthesia Intra-op $ Given 01/24/2018 2:42 PM CDT 30 mg $ Given 01/24/2018 1:14 PM CDT 50 mg $ Given 01/24/2018 12:50 PM CDT 50 mg succinylcholine (ANECTINE) injection Intravenous, PRN, Starting on Loreta 01/24/18 at 0821, Until Loreta 01/24/18 at 1542, Anesthesia Intra-op $ Given 01/24/2018 8:39 AM CDT 200 mg $ Given 01/24/2018 8:21 AM CDT 100 mg vancomycin (VANCOCIN) 1,000 mg in 250 mL IVPB PRN, Starting on Loreta 01/24/18 at 0945, Until Loreta 01/24/18 at 1542, Anesthesia Intra-op $ Given 01/24/2018 9:45 AM CDT 1,000 mg vasopressin (VASOSTRICT) 40 Units in dextrose 5 % 40 mL infusion 0-0.04 Units/min (0-2.4 mL/hr), Intravenous, INTRA-OP ONCE, On Loreta 01/24/18 at 0909, OR cardiac bundle Start infusion at : 0.04 units/min Anesthesia to dose. For use during procedure., Intra-op $ New Bag/Syringe 01/24/2018 1:07 PM CDT 0.02 Units/min 1.2 mL/hr documented in this encounter Care Teams Food Production Worker Relationship Specialty Start Date End Date Lisy Olmedo MD PCP - General 04/20/09 05/09/22 documented as of this encounter
--- OUTSIDE RECORDS SUMMARY | 2024-10-11 19:47 | XMS_ITS | Encounter Summary ---
Author Organization [facility] Health Address [address] [place] [address] Care Team Providers Care Infection Control Practitioner Name Role Phone Lisy Olmedo MD Primary Care Provide r Encounter Details Date Type Department Care Team (Latest Contact Info) Description 11/16/2017 [facility] Cardiac Fruit Thinner/EPS [address] [place] [phone] ProviderNavarro MD Discharge Disposition: Home or Self Care Social [...] st Contact Info) Description 10/20/2024 8:00 AM VICE PRINCIPAL Office Visit [facility] Medical Group - Family Medicine [address] [facility] [address] [place] [phone] Kiana Cole MD [address] [place] [address] 11/28/2024 9:00 AM VICE PRINCIPAL Office Visit [facility] - Neurology [address] [facility] [place] [address] Aline Finch MD [address] [facility] [place] [address] 02/10/2025 10:00 AM CDT Office Visit [facility] - Cardiology [address] [facility], [facility] [address] [place] [address] Curly Lay MD [address] [facility] [address] [place] [address] documented as of this encounter Visit Diagnoses Not on filedocumented in this encounter Care Teams Infection Control Practitioner Relationship Specialty Start Date End Date Lisy Olmedo MD PCP - General 04/20/09 05/09/22 documented as of this encounter
--- OUTSIDE RECORDS SUMMARY | 2024-10-11 19:48 | XMS_ITS | CCD ---
Author Organization Unknown Care Team Providers Care Sales Engineering Manager Name Role Phone Saroj DAVIS, Dr Estrada Primary Care Provider Unav ailable Unavailable Chronic Care Management Unavaila ble Summary Purpose DataExchange Insurance Providers Payer name Policy type / Coverage type Covered green party ID Effective Begin Date Effective End Date [place] [id number] Unknown Family history Sister Diagnosis Age At [...] No Inactive Date Active LISINOPRIL angioedema RxNorm: 73215 05/21/2024 No Inactive D ate Active Penicillin [...] (2.5 mg base)/3 mL nebulization soln RxNorm: 9684685 Inhale 3 Milliliter(s) Inhalation every 6 hours as needed for shortness of breath 4 11/19/19 25 Active albuterol sulfate HFA 90 mcg/actuation aerosol inhaler RxNorm: 3423823 Administer 2 Puff(s) Inhalation every 4 to 6 hours 4 12/20/19 25 Active buspirone 5 mg tablet RxNorm: 508003 Take 1 Tablet(s) Oral three times a day 4 10/26/19 25 Active Senna Plus 8.6 mg-50 mg tablet RxNorm: 801055 Take 2 Tablet(s) Oral two times a day as needed for constipation 4 07/28/20 24 Inactive multivitamin tablet RxNorm: Take 1 Tablet(s) Oral every day 4 10/20/19 26 Active buspirone 5 mg tablet RxNorm: 320382 Take 1 Tablet(s) Oral two times a day 4 10/16/19 26 Active polyethylene glycol 3350 17 gram/dose oral powder RxNorm: 751308 Use 1 Unit Dose Oral every day Mix 17g (one capful) with 8oz liquid. Hold for loose stools. 4 08/17/20 25 Active ipratropium 0.5 mg-albuterol 3 mg (2.5 mg base)/3 mL nebulization soln RxNorm: 5693736 Administer 3 Milliliter(s) Inhalation every 6 hours as needed for shortness of breath 4 08/22/20 24 Inactive buspirone 5 mg tablet RxNorm: 785897 Take 1 Tablet(s) Oral three times a day 4 07/23/20 24 Inactive aspirin 81 mg chewable tablet RxNorm: 161919 Take 1 Tablet(s) Feeding Tube / PEG every day 08/13/20 25 Active atorvastatin 40 mg tablet RxNorm: 718393 Take 1 Tablet(s) Feeding Tube / PEG every night at bedtime 08/13/20 25 Active amlodipine 10 mg tablet RxNorm: 101861 Take 1 Tablet(s) Feeding Tube / PEG once daily 08/13/20 25 Active clopidogrel 75 mg tablet RxNorm: 749115 Take 1 Tablet(s) Feeding Tube / PEG once daily 08/13/20 25 Active Pen Needle 31 gauge x 02/27 RxNorm: Take 1 Pen Needle Subcutaneous three times a day 08/13/20 25 Active famotidine 20 mg tablet RxNorm: 301648 Take 1 Tablet(s) Feeding Tube / PEG two times a day 08/13/20 25 Active thiamine HCl (vitamin B1) 100 mg tablet RxNorm: 627326 Take 1 Tablet(s) Feeding Tube / PEG every day 08/13/20 25 Active folic acid 1 mg tablet RxNorm: 310803 Take 1 Tablet(s) Feeding Tube / PEG every day 08/13/20 25 Active multivit-mineral -folic acid 333 mcg-lutein 3 mg-zeaxant 0.67 mg tablet RxNorm: Take 1 Tablet(s) Oral every day 4 No Stop Date Active Lantus Solostar U-100 Insulin 100 unit/mL (3 mL) subcutaneous pen RxNorm: 651538 Administer 15 Unit(s) Subcutaneous every night at bedtime 08/13/20 25 Active loratadine 10 mg tablet RxNorm: 074961 Take 1 Tablet(s) Feeding Tube / PEG every day 08/13/20 25 Active Senna Plus 8.6 mg-50 mg tablet RxNorm: 744467 Take 2 Tablet(s) Feeding Tube / PEG two times a day as needed for constipation 07/29/20 24 Inactive albuterol sulfate HFA 90 mcg/actuation aerosol inhaler RxNorm: 7057651 Administer 2 Puff(s) Inhalation every 4 to 6 hours 07/20 24 Inactive Medication Administered No Medication Administered data Procedures Procedure Codes Date Annual Wellness Visit (Initial Visit) CPT-4: G04 38 07/24/2024 FLU VACC CELL CULT PRSV FREE CPT-4: 19380 07/2024 Cologuard CPT-4: 78277 Unknown [id number] CPT-4: 10753 Unknown Gastroenterology Referral SNOMED CT: 306 318237 CPT-4: R12 Unknown Reason For Visit No Reason For Visit data Plan of Care Planned Activity Notes Codes Status Date Referral: Rad WPtel: [address] [address] [place] Referral faxed to: Agency Name: [facility] Agency Address: [address] [place] [address] Agency Phone #: [phone] Agency Agency will contact the patient to schedule Order Faxed Referral: Pending Medical Records Information [facility] requires Consent when requesting records, there i currently no consent on file for the patient can we get [facility] so we can finish the request. thank you On Hold ? Awaiting Documentation Referral: [facility] WPtel: [address] [place], [place] [id number] [facility]- [address] [place] [address] Reprocess Referral: [facility] WPtel: [address] [place], [place] [id number] 05/22/2024 order faxed to agency. Not Taken Up Referral: Residential home health WPtel: [facility] [address] [place] [id number] Referral ACT - Recert Referral: Pending Manager Of Case Management Referral Information lvm , provided the above agency information. Instructed to call O&R department if they do not hear back from agency withing 7-10 days.05/22/24 no answer, lvm to Spoke with office HVS Referral faxed to:[employer] Agency Name: _[facility] Agency Address:_ [address], [place] [address] Agency Phone #:_ Agency _ Agency will contact the patient to schedule appointment. Order Faxed Referral: Sean Kyle WPtel: [address] [address] [place] Agency contacted, confirmed they're accepting new patients. They will run insurance once order is received Referral faxed to: Agency Name: [facility] Agency Address: [address] , [facility] [[email or web address] [address] [id number] Agency Phone #:[phone] Agency Agency will ship to patient. pt has referral info Order Faxed Referral: Residential home health WPtel: [facility] [address] [id number] [place] Referral ACT - HH Cert Referral: [facility] WPtel: [address] [place] [address] Notes & referral faxed to [facility] [phone] Order Faxed Referral: Pending Incontinence Supplies Order Information called and spoke to Nanette KIM an advised contact number given Order Faxed Referral: Sean Kyle WPtel: [address] 06-24-2024. Called pt. spoke with Jenn [...]
--- OUTSIDE RECORDS SUMMARY | 2024-10-11 19:48 | XMS_ITS | Continuity of Care Document ---
Author Organization [employer] [facility] Address [address] [place] [address] Phone Care Team Providers Care Manager Mental Health Name Role Phone Unavailable Unavailable Unavailable Allergies, Adverse Reactions, Alerts Substance Reaction Status Criticality peanut lip swelling Active No Information Penicillins Swelling of eyes Active No Informat ion Medications Medication Instructions Dosage Effective Dates (start - stop) Status Comments glipizide 5 mg tablet take 1 tablet by oral route every day before a meal - Active metformin 1,000 mg tablet take 1 tablet by oral route 2 times every day with morning and evening meals 1000 MG - Active losartan 50 mg tablet take 1 tablet by oral route every day 50 MG - Active Lipitor 40 mg tablet take 1 tablet by oral route every day 40 MG - Active Januvia 100 mg tablet take 1 tablet by oral route every day 100 MG - Active chlorthalidone 25 mg tablet take 1 tablet by oral route every day 25 MG - Active amlodipine 10 mg tablet take 1 tablet by oral route every day 10 MG - Active ReliOn Prime Use daily to check blood glucose level, transcutaneous route - Active ReliOn Prime strips take 1 Application by Percutaneous route every day 1 Application - Active Levitra 10 mg tablet take 1 tablet by oral route every day as needed approximately 1 hour before sexual activity - Active pt requests 10, not 5, thanks. triamcinolone acetonide 0.1 % topical cream apply by topical route 2 times every day a thin layer to the affected area(s) 0.00 - Active aspirin 81 mg tablet,delayed release take 1 tablet by oral route every day 81 MG - Active Procedures Procedure Date OFFICE/OUTPATIENT VISIT, EST COLLECTION OF VENOUS BLOOD BY VENIPUNCTU RE OFFICE OUTPT EST 25 MIN COLLECTION OF VENOUS BLOOD BY VENIPUNCTU RE OFFICE OUTPT EST 25 MIN COLLECTION OF VENOUS BLOOD BY VENIPUNCTU RE OFFICE/OUTPATIENT VISIT, EST COLLECTION OF VENOUS BLOOD BY VENIPUNCTU RE OFFICE/OUTPATIENT VISIT, NEW Advance Directives Directive Yes / No Effective Date File Name No Information Encounters Encounter Description Practice Location Reason(s) For Visit Diagnoses Date Provider Providers Copied on Encounter [facility], [address], [place], [place], [id number] , [place] tel: [phone] [facility] No Information No Information [facility], [address], [place], [place], [address] , [place] tel: [phone] [facility] No Information No Information OFFICE/OUTPA TIENT VISIT, EST [facility], [address], [place], [place], [address] , [place] tel: [phone] [facility] Follow Up of DM/HTN (chief complaint) Diabetes mellitus without mention of complication, type II or unspecified type, uncontrolledU nspecified essential hypertensionP ure hyperglycerid emiaDermatiti s No Information OFFICE OUTPT EST 25 MIN [facility], [address], [place], [place], [address] , [place] tel: [phone] [facility] diabetes (chief complaint)pea nut allergy? (chief complaint) AnemiaDiabete s Mellitus Type 2, Uncomplicated Hypertension, UnspecifiedAn gioedemaOther and unspecified hyperlipidemi a No Information OFFICE OUTPT EST 25 MIN [facility], [address], [place], [place], [address] , [place] tel: [phone] [facility] hypertension (chief complaint) Hypertriglyce ridemiaAnemia Diabetes Mellitus Type 2, Uncomplicated Other and unspecified hyperlipidemi aHypertension , Unspecified 3 No Information OFFICE/OUTPA TIENT VISIT, EST [facility], [address], [place], [place], [address] , [place] tel: [phone] [facility] hypertension (chief complaint) Unspecified essential hypertension 3 No Information [facility], [address], [place], [place], [address] , [place] tel: [phone] [facility] Blood in stool 3 No Information OFFICE/OUTPA TIENT VISIT, NEW [facility], [address], [place], [place], [address] , [place] tel: [phone] [facility] DM/HTN (chief complaint) Diabetes mellitus without mention of complication, type II or unspecified type, uncontrolledU nspecified essential hypertension 3 No Information [facility], [address], [place], [place], [address] , [place] tel: [phone] Historic Immunization Location No Information 9 No Information Family History Family Member Type Diagnosis Age At Onset Problem (finding) Family history of Diabe mariana mellitus Problem (finding) Family history of hyper tension Immunizations Vaccine Date Status Comments PNEUMOCOCCAL VACCINE administered Source: New Immunization Record Payers Payer name Insurance type Covered republican ID Authoriza tion(s) No Information Social History Type Description Quantity Date Captured Comments Alcohol Use Details Unknown Caffeine Use Details Unknown Tobacco Use Status No Information Smoking Status No Information Sex Male Chief Complaint And Reason For Visit No Information Reason For Referral Reason For Referral No Information Plan Of Treatment Date Type Action Status Goal Urinalysis. Due on 13 due Goal BMP fasting. Due on 013 due Goal AST. Due on due Goal TSH. Due on due Goal ALT. Due on due Goal AST. Due on due Goal BMP fasting. Due on due Goal TSH. Due on due Goal ALT. Due on due Goal Urinalysis. Due on due Goal BMP fasting. Due on due Goal ALT. Due on due Goal AST. Due on due Goal TSH. Due on due Goal Urinalysis. Due on due Referral Referred To: [address], [id number] Ordered: Referral: [facility]. Colonoscopy. Diagnostic testing. ordered Future Order: Lab Order CBC (H/H , RBC, INDICES, WBC, PLT) (1209), Appointment on: , Sent on: Sent Future Order: Lab Order RETICULO CYTE COUNT (343), Appointment on: , Sent on: Sent Future Order: Lab Order BASIC ME TABOLIC PANEL W/EGFR ([id number]), Appointment on: , Sent on: Sent Future Order: Lab Order LIPID PA JD ([id number]), Appointment on: , Sent on: Sent History Of Present Illness Encounter Date Complaint History Of Prese nt Illness Follow Up of DM/HTN Follow Up of DM/HTN (comments) - Dm ii- last visit nov 2013, does not check bg levels, is supposed to be on 3 oral pills, metformin and januvia maxed. He states had been taking glipizide but thinks hasn't had the last month. -HTN- is slightly high today, we had switched to losartan from lisinopril due to angioedema. Functional Status Date Functional Assessmen t No Information Instructions Date Instruction Additional Infor chely -triamcinolone 0.1% Related to D ermatitis -lipid panel today Related to Pu re hyperglyceridemia -a1c today-will adju st glipizide as necessary-pt states at more physical job, is more active now-advised f/u ophtho exam Related to Diabetes mellitus without mention of complication, type II or unspecified type, uncontrolled -refills given on lo sartan, norvasc, chlorthalidone-low sodium diet-bmp today Related to Unspecified essential hypertension Increase physical activity. Rela eduardo to Diabetes mellitus without mention of complication, type II or unspecified type, uncontrolled Take medications as prescribed Home blood pressure check Increase activity level Take medications as prescribed Home blood pressure check Increase activity level Assessments Type Assessment Date No Information Patient Care Teams Name Effective Dates (start - stop) Status Members No Information
--- OUTSIDE RECORDS SUMMARY | 2024-10-11 19:48 | XMS_ITS | CCD ---
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 ICD-1 0: Z79.4 [...] Syncope ICD-10: R55 ICD-9: 780.2 06/24/2024 Active senior living (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 ICD-10: Z79.4 05/21 Active Urinary incontinence ICD-10: R32 ICD-9: 788.30 05/21/2024 Active Medications Medication Codes Instructions Start Date Stop Date Status Fill Instructions Senna Plus 8.6 mg-50 mg tablet RxNorm: 148308 Take 2 Tablet(s) Oral two times a day as needed for constipation 4 07/28/20 24 Inactive multivitamin tablet RxNorm: Take 1 Tablet(s) Oral every day 4 10/20/19 26 Active buspirone 5 mg tablet RxNorm: 166753 Take 1 Tablet(s) Oral two times a day 4 10/16/19 26 Active polyethylene glycol 3350 17 gram/dose oral powder RxNorm: 581946 Use 1 Unit Dose Oral every day Mix 17g (one capful) with 8oz liquid. Hold for loose stools. 08/17/20 25 Active ipratropium 0.5 mg-albuterol 3 mg (2.5 mg base)/3 mL nebulization soln RxNorm: 9525401 Administer 3 Milliliter(s) Inhalation every 6 hours as needed for shortness of breath 4 06/24/20 24 Inactive buspirone 5 mg tablet RxNorm: 271633 Take 1 Tablet(s) Oral three times a day 4 07/23/20 24 Inactive aspirin 81 mg chewable tablet RxNorm: 254817 Take 1 Tablet(s) Feeding Tube / PEG every day 08/13/20 25 Active atorvastatin 40 mg tablet RxNorm: 592475 Take 1 Tablet(s) Feeding Tube / PEG every night at bedtime 08/13/20 25 Active Senna Plus 8.6 mg-50 mg tablet RxNorm: 674686 Take 2 Tablet(s) Feeding Tube / PEG two times a day as needed for constipation 4 07/29/20 24 Inactive amlodipine 10 mg tablet RxNorm: 746776 Take 1 Tablet(s) Feeding Tube / PEG once daily 4 08/13/20 25 Active clopidogrel 75 mg tablet RxNorm: 536259 Take 1 Tablet(s) Feeding Tube / PEG once daily 08/13/20 25 Active Pen Needle 31 gauge x 5/16 RxNorm: Take 1 Pen Needle Subcutaneous three times a day 08/13/20 25 Active famotidine 20 mg tablet RxNorm: 907666 Take 1 Tablet(s) Feeding Tube / PEG two times a day 08/13/20 25 Active thiamine HCl (vitamin B1) 100 mg tablet RxNorm: 297937 Take 1 Tablet(s) Feeding Tube / PEG every day 08/13/20 25 Active folic acid 1 mg tablet RxNorm: 668857 Take 1 Tablet(s) Feeding Tube / PEG every day 08/13/20 25 Active multivit-mineral -folic acid 333 mcg-lutein 3 mg-zeaxant 0.67 mg tablet RxNorm: Take 1 Tablet(s) Oral every day 4 No Stop Date Active Lantus Solostar U-100 Insulin 100 unit/mL (3 mL) subcutaneous pen RxNorm: 100267 Administer 15 Unit(s) Subcutaneous every night at bedtime 08/13/20 25 Active loratadine 10 mg tablet RxNorm: 630935 Take 1 Tablet(s) Feeding Tube / PEG every day 08/13/20 25 Active albuterol sulfate HFA 90 mcg/actuation aerosol inhaler RxNorm: 6530474 Administer 2 Puff(s) Inhalation every 4 to 6 hours 01/16/20 25 Active Medication Administered No Medication Administered data Procedures Procedure Codes Date Annual Wellness Visit (Initial Visit) CPT-4: G04 38 07/24/2024 FLU VACC CELL CULT PRSV FREE CPT-4: 29111 07/2024 Cologuard CPT-4: 14910 Unknown [id number] CPT-4: 33577 Unknown Gastroenterology Referral SNOMED CT: 306 042842 CPT-4: R12 Unknown Reason For Visit No Reason For Visit data Plan of Care Planned Activity Notes Codes Status Date Referral: [facility] WPtel: [address] Referral faxed to: Agency Name: [facility] Agency Address: [address] [facility] [address], [place] [address] Agency Phone #: [phone] Agency Agency will contact the patient to schedule Order Faxed Referral: Pending Medical Records Information M requires Consent when requesting records, there i currently no consent on file for the patient can we get consent uploaded to [facility] so we can finish the request. thank you On Hold ? Awaiting Documentation Referral: [facility] WPtel: [address] [phone] [facility], [facility]- [address] [facility], [facility] [address] [address] Reprocess Referral: [facility] WPtel: [address] [place] [address] 05/22/2024 order faxed to agency. Not Taken Up Referral: Pending Maintenance And Engineering Manager Referral Information lvm , provided the above agency information. Instructed to call O&R department if they do not hear back from agency withing 7-10 days.05/22/24 no answer, lvm to cb Spoke with office HVS Referral faxed to:[facility] Agency Name: _[facility] Agency Address:_ [address], [place] [address] Agency Phone #:_ Agency _ Agency will contact the patient to schedule appointment. Order Faxed Referral: Sean Kyle WPtel: [address] [facility] Agency contacted, confirmed they're accepting new patients. They will run insurance once order is received Referral faxed to: Agency Name: [facility] Agency Address: [address], [place] [address] Agency Phone #:[phone] Agency Agency will ship to patient. pt has referral info Order Faxed Referral: [facility] WPtel: [address] [facility] Notes & referral faxed to [facility] [phone] Order Faxed Referral: Pending Incontinence Supplies Order Information called and spoke to Nanette patient JUDY peggy advised contact number given Order Faxed Referral: Sean Kyle WPtel: [address] [place], [place] [id number] 06-24-2024. Called pt. spoke with Jenn Do [...]
--- OUTSIDE RECORDS SUMMARY | 2024-10-11 19:48 | XMS_ITS | Continuity of Care Document ---
Author Organization [facility] Address [address] [place] [address] Phone Care Team Providers Care Content Developer Name Role Phone Alex Lopez MD Unavailable Unavailable Procedures Procedure Date PLACE GASTROSTOMY TUBE Advance Directives Directive Yes / No Effective Date File Name No Information Encounters Encounter Description Practice Location Reason(s) For Visit Diagnoses Date Provider Providers Copied on Encounter [facility], [address], [place], [place], [address], [place] tel:[phone] [facility] No Information John Johnson. [address] [place] [address], [id number], [place]. tel:[phone] Referring Provider: Alex Lopez, [address] [place] [address], [place], [address]. tel:[phone] Family History Family Member Type Diagnosis Age At Onset No Information Payers Payer name Insurance type Covered alliance party ID Authoriza brynn(s) [facility] [id number] Social History Type Description Quantity Date Captured Comments Sex Male Smoking Status No Information Chief Complaint And Reason For Visit No Information Reason For Referral Reason For Referral No Information History Of Present Illness Encounter Date Complaint History Of Prese nt Illness No Information Functional Status Date Functional Assessmen t No Information Instructions Date Instruction Additional Infor mation No Information Assessments Type Assessment Date No Information Patient Care Teams Name Effective Dates (start - stop) Status Members No Information
--- OUTSIDE RECORDS SUMMARY | 2024-10-11 19:48 | XMS_ITS | CCD ---
Author Name Saroj DAVIS, Dr Amanda escalona Address [address] [place] [address] Phone Organization [facility] Phone Care Team Providers Care Blind Installer Name Role Phone Saroj DAVIS, Dr Estrada Primary Care Provider Unav ailable Unavailable Chronic Care Management Unavaila ble Summary Purpose DataExchange Insurance Providers Payer name Policy type / Coverage type Covered green party ID Effective Begin Date Effective End Date [place] [id number] Unknown Family history Sister Diagnosis Age At [...] No Inactive Date Active LISINOPRIL angioedema RxNorm: 16280 05/21/2024 No Inactive D ate Active Penicillin [...] disease ICD-10: I11.9 ICD-9: 402.90 06/24/2024 Active detention (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 ICD-1 0: Z79.4 ICD-9: V58.67 06/24/2024 Active Obesity (BMI 30.0-34.9) ICD-10: E66.9 ICD-9: 278.00 05/21/2024 Active MONTY (obstructive sleep apnea) ICD-10: G4 7.33 ICD-9: 327.23 05/21/2024 Active Paroxysmal cough ICD-10: R05.8 ICD-9: 786.2 06/24/2024 Active Syncope ICD-10: R55 ICD-9: 780.2 06/24/2024 Active Encounter for general adult medical examination with abnormal findings ICD-10: Z00.01 ICD-9: V70.0 05/21/2024 Active detention (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 ICD-10: Z79.4 05/21 Active Urinary incontinence ICD-10: R32 ICD-9: 788.30 05/21/2024 Active Medications Medication Codes Instructions Start Date Stop Date Status Fill Instructions ipratropium 0.5 mg-albuterol 3 mg (2.5 mg base)/3 mL nebulization soln RxNorm: 7473394 Administer 3 Milliliter(s) Inhalation every 6 hours as needed for shortness of breath 4 06/24/20 24 Inactive buspirone 5 mg tablet RxNorm: 513417 Take 1 Tablet(s) Oral three times a day 4 07/23/20 24 Inactive aspirin 81 mg chewable tablet RxNorm: 519367 Take 1 Tablet(s) Feeding Tube / PEG every day 08/13/20 25 Active atorvastatin 40 mg tablet RxNorm: 892544 Take 1 Tablet(s) Feeding Tube / PEG every night at bedtime 08/13/20 25 Active Senna Plus 8.6 mg-50 mg tablet RxNorm: 889581 Take 2 Tablet(s) Feeding Tube / PEG two times a day as needed for constipation 07/29/20 24 Inactive amlodipine 10 mg tablet RxNorm: 529335 Take 1 Tablet(s) Feeding Tube / PEG once daily 08/13/20 25 Active clopidogrel 75 mg tablet RxNorm: 280030 Take 1 Tablet(s) Feeding Tube / PEG once daily 08/13/20 25 Active Pen Needle 31 gauge x 5/16 RxNorm: Take 1 Pen Needle Subcutaneous three times a day 08/13/20 25 Active famotidine 20 mg tablet RxNorm: 714380 Take 1 Tablet(s) Feeding Tube / PEG two times a day 08/13/20 25 Active thiamine HCl (vitamin B1) 100 mg tablet RxNorm: 585743 Take 1 Tablet(s) Feeding Tube / PEG every day 08/13/20 25 Active folic acid 1 mg tablet RxNorm: 224386 Take 1 Tablet(s) Feeding Tube / PEG every day 08/13/20 25 Active multivit-mineral -folic acid 333 mcg-lutein 3 mg-zeaxant 0.67 mg tablet RxNorm: Take 1 Tablet(s) Oral every day 4 No Stop Date Active Lantus Solostar U-100 Insulin 100 unit/mL (3 mL) subcutaneous pen RxNorm: 591617 Administer 15 Unit(s) Subcutaneous every night at bedtime 4 08/13/20 25 Active loratadine 10 mg tablet RxNorm: 858478 Take 1 Tablet(s) Feeding Tube / PEG every day 4 08/13/20 25 Active albuterol sulfate HFA 90 mcg/actuation aerosol inhaler RxNorm: 5899136 Administer 2 Puff(s) Inhalation every 4 to 6 hours 01/16/20 25 Active Medication Administered No Medication Administered data Procedures Procedure Codes Date Cologuard CPT-4: 35867 Unknown [id number]-Kjvaeraqdsyrtkw CPT-4: 61924 Unknown Gastroenterology Referral SNOMED CT: [id number] CPT-4: R12 Unknown Reason For Visit No Reason For Visit data Plan of Care Planned Activity Notes Codes Status Date Patient Education: Patient Medication Summary Completed 07/07/2024 Appointment: Sean Kyle WPtel: [address] [place], [place] [phone] [id number] 06/24/2024 Appointment: Oscar Hoyt WPtel: [address] [facility] [address]B [id number] [place] Phone Call 06/20/2024 Appointment: Mony Moseley WPtel: [address] [place], [place] [phone] [place] Phone Call 06/06/2024 Appointment: Mony Moseley WPtel: [address] [place], [place] [phone] [place] Phone Call 05/26/2024 Appointment: Sean Kyle WPtel: [address] [place], [place] [phone] [id number] 05/21/2024 Referral: [facility] WPtel: [address] [id number] Referral faxed to: Agency Name: [facility] [facility] Agency Address: [address] [facility] [address], [place] [address] Agency Phone #: [phone] Agency Agency will contact the patient to schedule Order Faxed Referral: Pending Medical Records Information [facility] requires Consent when requesting records, there i currently no consent on file for the patient can we get consent [facility] so we can finish the request. thank you On Hold ? Awaiting Documentation Referral: [facility] WPtel: [address] [phone] [facility]- Dr Ruiz [address] [facility], [facility] [address] [address] Rep[employer]cess Referral: [facility] WPtel: [address] [place] [address] 05/22/2024 order faxed to agency. Not Taken Up Referral: Pending [employer] Referral Information lvm , provided the above agency information. Instructed to call O&R department if they do not hear back from agency withing 7-10 days.05/22/24 no answer, lvm to Spoke with office HVS Referral faxed to:[employer] Agency Name: _[employer] Agency Address:_ [address], [place] [address] Agency Phone #:_ Agency _ Agency will contact the patient to schedule appointment. Order Faxed Referral: Sean Kyle WPtel: [address] [facility] Agency contacted, confirmed they're accepting new patients. They will run insurance once order is received Referral faxed to: Agency Name: [employer] Agency Address: [address] , [place] [address], [place] [address] Agency Phone #:[phone] Agency Agency will ship to patient. pt has referral info Order Faxed Referral: [facility] WPtel: [address] Notes & referral faxed to [facility] [phone] Order Faxed Referral: [employer]ending [employer] Order Information called and spoke to Nanette patient ANAYELIA an advised contact number given Order Faxed Referral: Amanda Kyleiqra WPtel: [address] [place], [place] [phone] 06-24-2024. Called pt. spoke with Jenn Do [...]
--- OUTSIDE RECORDS SUMMARY | 2024-10-11 19:48 | XMS_ITS | CCD ---
Author Name Saroj DAVIS, Dr Amanda escalona Address [address] [place] [address] Phone Organization [facility] Phone Care Team Providers Care Network Associate Name Role Phone Saroj DAVIS, Dr Estrada Primary Care Provider Unav ailable Unavailable Chronic Care Management Unavaila ble Summary Purpose DataExchange Insurance Providers Payer name Policy type / Coverage type Covered green party ID Effective Begin Date Effective End Date [place] [id number] Unknown Family history Sister Diagnosis Age At [...] No Inactive Date Active LISINOPRIL angioedema RxNorm: 28504 05/21/2024 No Inactive D ate Active Penicillin [...] disease ICD-10: I11.9 ICD-9: 402.90 06/24/2024 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 ICD-1 0: Z79.4 [...] present ICD-10: Z93.1 ICD-9: V44.1 05/21/2024 Active [facility] (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 ICD-10: Z79.4 05/21 Active Urinary incontinence ICD-10: R32 ICD-9: 788.30 05/21/2024 Active Medications Medication Codes Instructions Start Date Stop Date Status Fill Instructions ipratropium 0.5 mg-albuterol 3 mg (2.5 mg base)/3 mL nebulization soln RxNorm: 7984012 Administer 3 Milliliter(s) Inhalation every 6 hours as needed for shortness of breath 4 06/24/20 24 Inactive buspirone 5 mg tablet RxNorm: 957465 Take 1 Tablet(s) Oral three times a day 4 07/23/20 24 Inactive aspirin 81 mg chewable tablet RxNorm: 093031 Take 1 Tablet(s) Feeding Tube / PEG every day 08/13/20 25 Active atorvastatin 40 mg tablet RxNorm: 712473 Take 1 Tablet(s) Feeding Tube / PEG every night at bedtime 08/13/20 25 Active Senna Plus 8.6 mg-50 mg tablet RxNorm: 997976 Take 2 Tablet(s) Feeding Tube / PEG two times a day as needed for constipation 07/29/20 24 Inactive amlodipine 10 mg tablet RxNorm: 654964 Take 1 Tablet(s) Feeding Tube / PEG once daily 08/13/20 25 Active clopidogrel 75 mg tablet RxNorm: 764958 Take 1 Tablet(s) Feeding Tube / PEG once daily 08/13/20 25 Active Pen Needle 31 gauge x 5/16 RxNorm: Take 1 Pen Needle Subcutaneous three times a day 08/13/20 25 Active famotidine 20 mg tablet RxNorm: 700652 Take 1 Tablet(s) Feeding Tube / PEG two times a day 08/13/20 25 Active thiamine HCl (vitamin B1) 100 mg tablet RxNorm: 821798 Take 1 Tablet(s) Feeding Tube / PEG every day 08/13/20 25 Active folic acid 1 mg tablet RxNorm: 298926 Take 1 Tablet(s) Feeding Tube / PEG every day 08/13/20 25 Active multivit-mineral -folic acid 333 mcg-lutein 3 mg-zeaxant 0.67 mg tablet RxNorm: Take 1 Tablet(s) Oral every day 4 No Stop Date Active Lantus Solostar U-100 Insulin 100 unit/mL (3 mL) subcutaneous pen RxNorm: 980921 Administer 15 Unit(s) Subcutaneous every night at bedtime 08/13/20 25 Active loratadine 10 mg tablet RxNorm: 664397 Take 1 Tablet(s) Feeding Tube / PEG every day 08/13/20 25 Active albuterol sulfate HFA 90 mcg/actuation aerosol inhaler RxNorm: 1780909 Administer 2 Puff(s) Inhalation every 4 to 6 hours 01/16/20 Active Medication Administered No Medication Administered data Procedures Procedure Codes Date Most recent A1c = 7.0% and < 8.0% CPT-4: 3051F 06/24/2024 MED LIST DOCD IN [facility] CPT-4: 1159F 06/24/2024 RVW MEDS BY RX/DR IN [facility] CPT-4: 1160F 2023 Discharge Meds Reconciled w/ Current Med list CP T-4: 1111F 06/24/2024 Amnt pain noted; none prsnt CPT-4: 1126F 06/15 [facility] CPT-4: 29383 Unknown [id number]-Fmopjjvrnynnwpg CPT-4: 27093 Unknown Vital Signs Date Vital 06/24/2024 Blood Pressure 1: 134/76 Code: 8480-6 BMI: 34.6 Code: 17026-1 Heart Rate 1: 86 bpm Height: 6'4 Code: 8302-2 Respiratory Rate: 17 bpm SpO2: 94% Temperature: 36.4 (C) / 97.6 (F) Weight: 284 lbs Code: 63101-5 Reason For Visit Reason For Visit Effective Dates Notes post ED/hospital visit 06/24/2024 Encounters Encounter Performer Location Location Address Codes Eric e ([id number]) Home or Residence Visit Est Pt - Moderate Level, 40 mins Diagnosis: Syncope[ICD10: R55] Diagnosis: Hemiparesis due to recent cerebrovascular accident (CVA)[ICD10: I69.359] Diagnosis: Diabetes mellitus due to underlying condition with diabetic neuropathy, with long-term current use of insulin[ICD10: E08.40] Diagnosis: [facility] (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[ICD10: Z79.4] Diagnosis: Hypertension [...] Z12.11] Diagnosis: Paroxysmal cough[ICD10: R05.8] Sean Kyle [place] [facility] [address] [place] [address] CPT-4: 08413 4 Plan of Care Planned Activity Notes [...] insulin: Stable. Hba1c 7.0. 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 On PT/OT for strengthening, balance, coordination Z12.11-V76.51 Colon cancer screening: Cologuageorges R05.8-786.2 Paroxysmal cough: poss due to poor pharyngeal reflex, GERD . Try Protonix. Oropharyngeal suctioning. Order Suction Aspirator 06/24/2024 Patient Education: Obesity Completed 06/24/2024 Patient Education: Patient Medication Summary Completed 06/24/2024 Care Plan: Cologuard Ordered 06/15 Appointment: Oscar Hoyt WPtel: [address] [facility] [address] [id number] [place] Phone Call 06/20/2024 Appointment: Mony Moseley WPtel: [address] [place], [place] [phone] [place] Phone Call 06/06/2024 Appointment: Mony Moseley WPtel: [address] [place], [place] [phone] [place] Phone Call 05/26/2024 Appointment: Sean Kyle WPtel: [address] [place], [place] [phone] [id number] 05/21/2024 Referral: [employer] [facility] WPtel: [address] [facility] [address] [id number] Referral faxed to: Agency Name: [facility] Agency Address: [address] [facility] [address], [place] [address] Agency Phone #: [phone] Agency Agency will contact the patient to schedule Order Faxed Referral: Pending Medical Records Information [facility] requires Consent when requesting records, there i currently no consent on file for the patient can we get consent [facility] to [facility] so we can finish the request. thank you On Hold ? Awaiting Documentation Referral: [facility] WPtel: [phone] [phone] [facility] Medical [facility]- Dr Ruiz [address] [facility] [address] [address] [employer] Referral: [facility] WPtel: [address] [place] [address] 05/22/2024 order faxed to agency. Not Taken Up Referral: [employer]ending [employer] Referral Information lvm , provided the above agency information. Instructed to call O&R department if they do not hear back from agency withing 7-10 days.05/22/24 no answer, lvm to Spoke with office HVS Referral faxed to:[employer] Agency Name: _[employer] [facility] [employer] Agency Address:_ [address], [place] [address] Agency Phone #:_ Agency _ Agency will contact the patient to schedule appointment. Order Faxed Referral: Sean Kyle WPtel: [address] [phone] Agency contacted, confirmed they're accepting new patients. They will run insurance once order is received Referral faxed to: Agency Name: [employer] [facility] Agency Address: [address], [address], [place] [address] Agency Phone #:[phone] Agency Agency will ship to patient. pt has referral info Order Faxed Referral: [facility] WPtel: [address] Notes & referral faxed to [facility] [phone] Order Faxed Referral: Pending Incontinence Supplies Order Information called and spoke to Nanette patient POA an advised contact number given Order Faxed Referral: Sean Kyle WPtel: [address] [place] [address] 06-24-2024. Called pt. spoke with Jenn Do [...] insulin: Stable. Hba1c 7.0. On Lantus Z79.4-V58.67 [facility] (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; On Lantus 15 [...] At high risk for falls: at present [facility] bound. On PT/OT for strengthening, balance, coordination Z12.11-V76.51 Colon cancer screening: jim R05.8-786.2 Paroxysmal cough: poss due to poor pharyngeal reflex, GERD . Try Protonix. Oropharyngeal suctioning. Order Suction Aspirator 06/24/2024 Medical Equipment No Medical Equipment data Advance Directives No Advance Directive data
--- OUTSIDE RECORDS SUMMARY | 2024-10-11 19:48 | XMS_ITS | Clinical Summary ---
Author Organization Unknown Care Team Providers Care Adjunct Business Instructor Name Role Phone DONNA DAVIS, SHEREE Unavailable Lan BRANNON HUMAN SERVICE SPECIALIST, IRASEMA Un available Unavailable FELIX PHYSICAL THERAPIST, ELHAM Unavailable Unavailable SAMPSON SPEECH THERAPIST, MS, CCC/DISPERSION MIXER, DEBORA Un available Unavailable KATIANA VICE PRESIDENT MEDIA RELATIONS, ALCON Unavail able Unavailable BRITNI SANTAMARIA COUNSELOR, DM Unavailable Unavailable MIMI OCCUPATIONAL THERAPIST, SANDI Unavailable Unavailable Payers Payer Name Policy Type Policy Number Effective Date Expira tion Date MEDICARE [place] - EPISODIC [id number] Problems Condition Name Condition Details Condition Category Status Onset Date Resolution Date Last Treatment Date Treating Clinician Comments 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 2023-10 00:00: 00 DYSARTHRIA FOLLOWING CEREBRAL INFARCTION Active 10-15 00:00: 00 DYSPHAGIA FOLLOWING CEREBRAL INFARCTION Active 10-15 00:00: 00 FACIAL WEAKNESS FOLLOWING CEREBRAL INFARCTION Active 10-15 00:00: 00 ESSENTIAL (PRIMARY) HYPERTENSION Active 10-15 00:00: 00 ATHSCL HEART DISEASE OF [place] CORONARY ARTERY W/O ANG PCTRS Active 10-15 00:00: 00 TYPE 2 DIABETES MELLITUS WITH HYPERGLYCEMI A Active 10-15 00:00: 00 GASTRO-ESOPH AGEAL REFLUX DISEASE WITHOUT ESOPHAGITIS Active 10-15 00:00: 00 PERSONAL HISTORY OF NICOTINE DEPENDENCE Active 10-15 00:00: 00 PRESENCE OF OTHER VASCULAR IMPLANTS AND GRAFTS Active 10-15 00:00: 00 PRESENCE OF AORTOCORONAR Y BYPASS GRAFT Active 10-15 00:00: 00 ASSISTED (CURRENT) USE OF ANTITHROMBOT ICS/ANTIPLAT ELETS Active 10-15 00:00: 00 ASSISTED (CURRENT) USE OF INSULIN Active 10-15 00:00: 00 GUEST SPECIALIST (CURRENT) USE OF ASPIRIN Active 10-15 00:00: 00 HISTORY OF FALLING Active 10-15 00:00: 00 APHASIA FOLLOWING CEREBRAL INFARCTION Active 2023-10 00:00: 00 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 Ordering Clinician Indication Dosage Frequency Signature (SIG) Comments Components albuterol sulfate HFA 90 mcg/actuati on aerosol inhaler 06-18 00:00: 00 Yes [id number] WHEEZING/SH ORTNESS OF BREATH 2 puff EVERY 4 HOURS 2 puff EVERY 4 HOURS (route: inhalation ) Med Classific ation: Respirato ry Therapy Agents amlodipine 10 mg tablet 06-18 00:00: 00 Yes [id number] BLOOD PRESSURE 1 tablet ONCE DAILY 1 tablet ONCE DAILY (route: oral) Med Classific ation: Cardiovas cular Therapy Agents Aspirin Childrens 81 mg chewable tablet 06-18 00:00: 00 Yes [id number] CIRCULATION 1 tablet ONCE DAILY 1 tablet ONCE DAILY (route: oral) Med Classific ation: Hematolog ical Agents atorvastati n 40 mg tablet 06-18 00:00: 00 Yes [id number] CHOLESTEROL 1 tablet AT BEDTIME 1 tablet AT BEDTIME (route: oral) Med Classific ation: Cardiovas cular Therapy Agents buspirone 5 mg tablet 06-18 00:00: 00 Yes [id number] MOOD 1 tablet 3 TIMES DAILY 1 tablet 3 TIMES DAILY (route: oral) Med Classific ation: Central Nervous System Agents clopidogrel 75 mg tablet 06-18 00:00: 00 Yes [id number] PREVENT BLOOD CLOTS 1 tablet ONCE DAILY 1 tablet ONCE DAILY (route: oral) Med Classific ation: Hematolog ical Agents famotidine 20 mg tablet 06-18 00:00: 00 Yes [id number] PREVENT ULCERS 1 tablet TWICE DAILY 1 tablet TWICE DAILY (route: oral) Med Classific ation: Gastroint estinal Therapy Agents folic acid 1 mg tablet 06-18 00:00: 00 Yes [id number] LOW VIT B 1 tablet ONCE DAILY 1 tablet ONCE DAILY (route: oral) Med Classific ation: Electroly te Balance-N utritiona l Products guaifenesin ER 600 mg tablet, extended release 12 hr 06-18 00:00: 00 Yes [id number] COUGH 1 tablet TWICE DAILY 1 tablet TWICE DAILY (route: oral) Med Classific ation: Respirato ry Therapy Agents Humulin R Regular U-100 Insulin 100 unit/mL injection solution 06-18 00:00: 00 Yes [id number] DIABETES 15 unit AT BEDTIME 15 unit AT BEDTIME (route: injection) Med Classific ation: Endocrine hydralazine 10 mg tablet 06-18 00:00: 00 Yes [id number] BLOOD PRESSURE 1 tablet 3 TIMES DAILY 1 tablet 3 TIMES DAILY (route: oral) Med Classific ation: Cardiovas cular Therapy Agents ipratropium 0.5 mg-albutero l 3 mg (2.5 mg base)/3 mL nebulizatio n soln 06-18 00:00: 00 Yes [id number] WHEEZING/SH ORTNESS OF BREATH 3 mL EVERY 6 HOURS 3 mL EVERY 6 HOURS (route: inhalation ) Med Classific ation: Respirato ry Therapy Agents loratadine 10 mg tablet 06-18 00:00: 00 Yes [id number] ALLERGIES 1 tablet ONCE DAILY 1 tablet ONCE DAILY (route: oral) Med Classific ation: Respirato ry Therapy Agents Multivitami n 50 Plus tablet 06-18 00:00: 00 Yes [id number] HEALTH SUPPLEMENT 1 tablet ONCE DAILY 1 tablet ONCE DAILY (route: oral) Med Classific ation: Electroly te Balance-N utritiona l Products quetiapine 25 mg tablet 06-18 00:00: 00 Yes [id number] MOOD 1 tablet TWICE DAILY 1 tablet TWICE DAILY (route: oral) Med Classific ation: Central Nervous System Agents Senna Plus 8.6 mg-50 mg capsule 06-18 00:00: 00 Yes [id number] CONSTIPATIO N 2 capsule 2 TIMES DAILY 2 capsule 2 TIMES DAILY (route: oral) Med Classific ation: Gastroint estinal Therapy Agents thiamine HCl (vitamin B1) 100 mg tablet 06-18 00:00: 00 Yes [id number] LOW B VITAMIN 1 tablet ONCE DAILY 1 tablet ONCE DAILY (route: oral) Med Classific ation: Electroly te Balance-N utritiona l Products Tylenol 325 mg tablet 06-18 00:00: 00 Yes [id number] PAIN/FEVER 2 tablet EVERY 6 HOURS 2 tablet EVERY 6 HOURS (route: oral) Med Classific ation: Analgesic , Anti-infl ammatory or Antipyret ic Immunizations Ordered Immunization Name Filled Immunization Name Date Status Comments Refusal Reason INFLUENZA NOT GIVEN - NOT FLU SEASON, TIV (INACTIVATED) 2024-06-19 00:00:00 PNEUMOCOCCAL - DISCUSSED AND DECLINED, PPV 2024-06-19 00:00:00 Vital Signs Vital Name Observation Time Observation Value Commen ts Temperature 2024-10-06 11:26:00.000 98 [degF] Temperature 2024-10-03 10:46:00.000 98.6 [degF] Temperature 2024-10-02 11:54:00.000 97.9 [degF] Temperature 2024-10-02 11:00:00.000 97.9 [degF] Temperature 2024-09-26 10:48:00.000 97.8 [degF] Temperature 2024-09-25 11:33:00.000 97.8 [degF] Temperature 2024-09-25 10:44:00.000 97.8 [degF] Temperature 2024-09-19 10:52:00.000 97.8 [degF] Temperature 2024-09-18 11:56:00.000 97.7 [degF] Temperature 2024-09-18 10:46:00.000 97.7 [degF] Temperature 2024-09-12 10:48:00.000 97.7 [degF] Temperature 2024-09-10 12:19:00.000 98.5 [degF] Temperature 2024-09-05 10:53:00.000 98.6 [degF] Temperature 2024-09-04 11:58:00.000 97.1 [degF] Temperature 2024-09-04 10:53:00.000 97.1 [degF] Temperature 2024-08-28 12:50:00.000 97.9 [degF] Temperature 2024-08-28 11:29:00.000 97.3 [degF] Temperature 2024-08-28 10:43:00.000 97.3 [degF] Temperature 2024-08-22 11:01:00.000 98.6 [degF] Temperature 2024-08-21 12:24:00.000 97.5 [degF] Temperature 2024-08-21 10:40:00.000 97.5 [degF] Temperature 2024-08-18 13:32:00.000 97.9 [degF] Pulse 2024-10-06 11:26:00.000 78 /min Pulse 2024-10-03 10:46:00.000 71 /min Pulse 2024-10-02 11:54:00.000 84 /min Pulse 2024-10-02 11:00:00.000 84 /min Pulse 2024-09-26 10:48:00.000 72 /min Pulse 2024-09-25 11:33:00.000 80 /min Pulse 2024-09-25 10:44:00.000 78 /min Pulse 2024-09-19 10:52:00.000 72 /min Pulse 2024-09-18 11:56:00.000 72 /min Pulse 2024-09-18 10:46:00.000 72 /min Pulse 2024-09-12 10:48:00.000 75 /min Pulse 2024-09-10 12:19:00.000 72 /min Pulse 2024-09-05 10:53:00.000 70 /min Pulse 2024-09-04 11:58:00.000 72 /min Pulse 2024-09-04 10:53:00.000 72 /min Pulse 2024-08-28 12:50:00.000 76 /min Pulse 2024-08-28 11:29:00.000 76 /min Pulse 2024-08-28 10:43:00.000 76 /min Pulse 2024-08-22 11:01:00.000 71 /min Pulse 2024-08-21 12:24:00.000 80 /min Pulse 2024-08-21 10:40:00.000 76 /min Pulse 2024-08-18 13:32:00.000 74 /min O2 Saturation (%) 2024-10-06 11:26:00.000 98 % O2 Saturation (%) 2024-10-03 10:46:00.000 95 % O2 Saturation (%) 2024-10-02 11:54:00.000 94 % O2 Saturation (%) 2024-10-02 11:00:00.000 94 % O2 Saturation (%) 2024-09-26 10:48:00.000 95 % O2 Saturation (%) 2024-09-25 11:33:00.000 97 % O2 Saturation (%) 2024-09-25 10:44:00.000 97 % O2 Saturation (%) 2024-09-19 10:52:00.000 96 % O2 Saturation (%) 2024-09-18 11:56:00.000 95 % O2 Saturation (%) 2024-09-18 10:46:00.000 93 % O2 Saturation (%) 2024-09-12 10:48:00.000 99 % O2 Saturation (%) 2024-09-10 12:19:00.000 98 % O2 Saturation (%) 2024-09-05 10:53:00.000 96 % O2 Saturation (%) 2024-09-04 11:58:00.000 99 % O2 Saturation (%) 2024-09-04 10:53:00.000 99 % O2 Saturation (%) 2024-08-28 12:50:00.000 97 % O2 Saturation (%) 2024-08-28 11:29:00.000 96 % O2 Saturation (%) 2024-08-28 10:43:00.000 96 % O2 Saturation (%) 2024-08-22 11:01:00.000 95 % O2 Saturation (%) 2024-08-21 12:24:00.000 98 % O2 Saturation (%) 2024-08-21 10:40:00.000 93 % O2 Saturation (%) 2024-08-18 13:32:00.000 96 % Respirations 2024-10-06 11:26:00.000 18 /min Respirations 2024-10-03 10:46:00.000 18 /min Respirations 2024-10-02 11:54:00.000 18 /min Respirations 2024-10-02 11:00:00.000 18 /min Respirations 2024-09-26 10:48:00.000 16 /min Respirations 2024-09-25 11:33:00.000 18 /min Respirations 2024-09-25 10:44:00.000 18 /min Respirations 2024-09-19 10:52:00.000 18 /min Respirations 2024-09-18 11:56:00.000 16 /min Respirations 2024-09-18 10:46:00.000 18 /min Respirations 2024-09-12 10:48:00.000 18 /min Respirations 2024-09-10 12:19:00.000 18 /min Respirations 2024-09-05 10:53:00.000 18 /min Respirations 2024-09-04 11:58:00.000 18 /min Respirations 2024-09-04 10:53:00.000 18 /min Respirations 2024-08-28 12:50:00.000 16 /min Respirations 2024-08-28 11:29:00.000 18 /min Respirations 2024-08-28 10:43:00.000 18 /min Respirations 2024-08-22 11:01:00.000 16 /min Respirations 2024-08-21 12:24:00.000 16 /min Respirations 2024-08-21 10:40:00.000 18 /min Respirations 2024-08-18 13:32:00.000 16 /min Systolic Blood Pressure 2024-10-06 11:26:00.000 124 mm [Hg] Systolic Blood Pressure 2024-10-03 10:46:00.000 130 mm [Hg] Systolic Blood Pressure 2024-10-02 11:54:00.000 112 mm [Hg] Systolic Blood Pressure 2024-10-02 11:00:00.000 112 mm [Hg] Systolic Blood Pressure 2024-09-26 10:48:00.000 140 mm [Hg] Systolic Blood Pressure 2024-09-25 11:33:00.000 122 mm [Hg] Systolic Blood Pressure 2024-09-25 10:44:00.000 116 mm [Hg] Systolic Blood Pressure 2024-09-19 10:52:00.000 130 mm [Hg] Systolic Blood Pressure 2024-09-18 11:56:00.000 112 mm [Hg] Systolic Blood Pressure 2024-09-18 10:46:00.000 112 mm [Hg] Systolic Blood Pressure 2024-09-12 10:48:00.000 144 mm [Hg] Systolic Blood Pressure 2024-09-10 12:19:00.000 120 mm [Hg] Systolic Blood Pressure 2024-09-05 10:53:00.000 136 mm [Hg] Systolic Blood Pressure 2024-09-04 11:58:00.000 116 mm [Hg] Systolic Blood Pressure 2024-09-04 10:53:00.000 116 mm [Hg] Systolic Blood Pressure 2024-08-28 12:50:00.000 126 mm [Hg] Systolic Blood Pressure 2024-08-28 11:29:00.000 126 mm [Hg] Systolic Blood Pressure 2024-08-28 10:43:00.000 126 mm [Hg] Systolic Blood Pressure 2024-08-22 11:01:00.000 120 mm [Hg] Systolic Blood Pressure 2024-08-21 12:24:00.000 124 mm [Hg] Systolic Blood Pressure 2024-08-21 10:40:00.000 124 mm [Hg] Systolic Blood Pressure 2024-08-18 13:32:00.000 140 mm [Hg] Diastolic Blood Pressure 2024-10-06 11:26:00.000 72 mm [Hg] Diastolic Blood Pressure 2024-10-03 10:46:00.000 82 mm [Hg] Diastolic Blood Pressure 2024-10-02 11:54:00.000 66 mm [Hg] Diastolic Blood Pressure 2024-10-02 11:00:00.000 66 mm [Hg] Diastolic Blood Pressure 2024-09-26 10:48:00.000 82 mm [Hg] Diastolic Blood Pressure 2024-09-25 11:33:00.000 70 mm [Hg] Diastolic Blood Pressure 2024-09-25 10:44:00.000 72 mm [Hg] Diastolic Blood Pressure 2024-09-19 10:52:00.000 88 mm [Hg] Diastolic Blood Pressure 2024-09-18 11:56:00.000 68 mm [Hg] Diastolic Blood Pressure 2024-09-18 10:46:00.000 68 mm [Hg] Diastolic Blood Pressure 2024-09-12 10:48:00.000 88 mm [Hg] Diastolic Blood Pressure 2024-09-10 12:19:00.000 66 mm [Hg] Diastolic Blood Pressure 2024-09-05 10:53:00.000 74 mm [Hg] Diastolic Blood Pressure 2024-09-04 11:58:00.000 78 mm [Hg] Diastolic Blood Pressure 2024-09-04 10:53:00.000 78 mm [Hg] Diastolic Blood Pressure 2024-08-28 12:50:00.000 76 mm [Hg] Diastolic Blood Pressure 2024-08-28 11:29:00.000 76 mm [Hg] Diastolic Blood Pressure 2024-08-28 10:43:00.000 76 mm [Hg] Diastolic Blood Pressure 2024-08-22 11:01:00.000 82 mm [Hg] Diastolic Blood Pressure 2024-08-21 12:24:00.000 70 mm [Hg] Diastolic Blood Pressure 2024-08-21 10:40:00.000 70 mm [Hg] Diastolic Blood Pressure 2024-08-18 13:32:00.000 86 mm [Hg] Plan of Treatment Planned Activity Planned Date Details Comments Future Scheduled Test FOR EACH O RDERED, IN-HOME OR TELEHEALTH VISIT, THE PHYSICAL THERAPIST WILL EVALUATE AND TREAT PATIENTS FUNCTIONAL DEFICITS. PHYSICAL THERAPIST WILL ASSESS AND INSTRUCT ON PAIN, FALL PREVENTION AND SAFETY, MENTAL/COGNITIVE/PSYCHOSOCIAL STATUS, MED MANAGEMENT, SKIN INTEGRITY, PRESSURE ULCER PREVENTION, AND INFECTION CONTROL/PREVENTION RELATED TO THE PRIMARY MEDICAL DIAGNOSIS AND ACTIVE CO-MORBIDITIES THAT MAY IMPACT THE PATIENTS OUTCOME. [code = FOR EACH ORDERED, IN-HOME OR TELEHEALTH VISIT, THE PHYSICAL THERAPIST WILL EVALUATE AND TREAT PATIENTS FUNCTIONAL DEFICITS. PHYSICAL THERAPIST WILL ASSESS AND INSTRUCT ON PAIN, FALL PREVENTION AND SAFETY, MENTAL/COGNITIVE/PSYCHOSOCIAL STATUS, MED MANAGEMENT, SKIN INTEGRITY, PRESSURE ULCER PREVENTION, AND INFECTION CONTROL/PREVENTION RELATED TO THE PRIMARY MEDICAL DIAGNOSIS AND ACTIVE CO-MORBIDITIES THAT MAY IMPACT THE PATIENTS OUTCOME.] Future Scheduled Test PHYSICAL T HERAPIST TO DEVELOP AND INSTRUCT ON HOME EXERCISE PROGRAM TO INCLUDE THERAPEUTIC EXERCISES DESIGNED TO RESTORE FUNCTIONAL RANGE OF MOTION, STRENGTH, BALANCE, NEUROMUSCULAR AND SENSORIMOTOR FUNCTION. [code = PHYSICAL THERAPIST TO DEVELOP AND INSTRUCT ON HOME EXERCISE PROGRAM TO INCLUDE THERAPEUTIC EXERCISES DESIGNED TO RESTORE FUNCTIONAL RANGE OF MOTION, STRENGTH, BALANCE, NEUROMUSCULAR AND SENSORIMOTOR FUNCTION.] Future Scheduled Test PHYSICAL T HERAPIST WILL INSTRUCT ON FUNCTIONAL TRANSFERS, BED MOBILITY AND FALL RISK REDUCTION STRATEGIES INCLUDING USE OF ADAPTIVE EQUIPMENT AND EDUCATION FOR HOME MODIFICATIONS TO MAXIMIZE SAFETY, IMPROVE FUNCTION AND DECREASE FALL RISK. [code = PHYSICAL THERAPIST WILL INSTRUCT ON FUNCTIONAL TRANSFERS, BED MOBILITY AND FALL RISK REDUCTION STRATEGIES INCLUDING USE OF ADAPTIVE EQUIPMENT AND EDUCATION FOR HOME MODIFICATIONS TO MAXIMIZE SAFETY, IMPROVE FUNCTION AND DECREASE FALL RISK.] Future Scheduled Test PHYSICAL T HERAPIST TO INSTRUCT ON GAIT TRAINING, BALANCE TRAINING, AND FALL RISK REDUCTION STRATEGIES INCLUDING USE OF ADAPTIVE EQUIPMENT AND EDUCATION FOR HOME MODIFICATIONS TO MAXIMIZE SAFETY, IMPROVE FUNCTION, AND DECREASED FALL RISK. [code = PHYSICAL THERAPIST TO INSTRUCT ON GAIT TRAINING, BALANCE TRAINING, AND FALL RISK REDUCTION STRATEGIES INCLUDING USE OF ADAPTIVE EQUIPMENT AND EDUCATION FOR HOME MODIFICATIONS TO MAXIMIZE SAFETY, IMPROVE FUNCTION, AND DECREASED FALL RISK.] Goal 2024-08-13 Patient Goal - S OC 06/19/24: TO REMAIN FREE FROM SKIN BREAKDOWN AND HOSPITALIZATIONS. TO STRENGTHEN UPPER BODY/CORE TO PULL UP. TO INCREASE PARTICIPATION IN CARE. Goal Patient Goal - S OC 06/19/24: TO REMAIN FREE FROM SKIN BREAKDOWN AND HOSPITALIZATIONS. TO STRENGTHEN UPPER BODY/CORE TO PULL UP. TO INCREASE PARTICIPATION IN CARE. Goal Provider Goal - PHYSICAL THERAPY EVALUATION WILL BE COMPLETED, AND A PLAN OF CARE WILL BE DEVELOPED FOR THE TREATMENT OF PATIENT DEFICITS RELATED TO PRIMARY DIAGNOSIS FOR HOME CARE EPISODE. PATIENT/CAREGIVER TO VERBALIZE AND DEMONSTRATE UNDERSTANDING OF ASSOCIATED DISEASE PROCESSES AND THEIR INFLUENCE ON FUNCTION IN THE HOME ENVIRONMENT AND MINIMIZE RISK OF HOSPITALIZATION. Goal Provider Goal - PATIENT/CAREGIVER WILL RETURN DEMONSTRATE ACCURATE AND SAFE EXECUTION OF ESTABLISHED HOME EXERCISE PROGRAM TO IMPROVE ABILITY TO AMBULATE. Goal Provider Goal - PATIENT WILL DEMONSTRATE IMPROVED SAFETY AND ABILITY WITH TRANSFERS AND BED MOBILITY. Goal Provider Goal - PATIENT WILL DEMONSTRATE IMPROVED SAFETY AND ABILITY WITH GAIT, BALANCE, AND REDUCED FALL RISK. Encounters Start Date/Time End Date/Time Encounter Type Admission Type Attending [facility] Care Department Encounter ID Discharge Date Discharge Status Discharge Condition Discharge Reason Percent Goals Met 2024-06-19 00:00:00 2024-10-16 00:00:00 Outpatient RECERTIFIC ELHAM EDMOND [facility] [id number]
--- OUTSIDE RECORDS SUMMARY | 2024-10-11 19:48 | XMS_ITS | CCD ---
Author Name Saroj DAVIS, Dr Amanda escalona Address [address] [place] [address] Phone Organization [employer] [facility] Phone Care Team Providers Care Cutter Operator Name Role Phone Saroj DAVIS, Dr Estrada Primary Care Provider Unav ailable Unavailable Chronic Care Management Unavaila ble Summary Purpose DataExchange Insurance Providers Payer name Policy type / Coverage type Covered green party ID Effective Begin Date Effective End Date [place] [id number] Unknown Family history Sister Diagnosis Age At [...] No Inactive Date Active LISINOPRIL angioedema RxNorm: 90470 05/21/2024 No Inactive D ate Active Penicillin [...] disease ICD-10: I11.9 ICD-9: 402.90 05/21/2024 Active jail (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 ICD-10: Z79.4 05/21 Active Obesity (BMI 30.0-34.9) ICD-10: E66.9 ICD-9: 278.00 05/21/2024 Active MONTY (obstructive sleep apnea) ICD-10: G4 7.33 ICD-9: 327.23 05/21/2024 Active Urinary incontinence ICD-10: R32 ICD-9: 788.30 05/21/2024 Active Medications Medication Codes Instructions Start Date Stop Date Status Fill Instructions aspirin 81 mg chewable tablet RxNorm: 382169 Take 1 Tablet(s) Feeding Tube / PEG every day 08/13/20 25 Active atorvastatin 40 mg tablet RxNorm: 484234 Take 1 Tablet(s) Feeding Tube / PEG every night at bedtime 08/13/20 25 Active Senna Plus 8.6 mg-50 mg tablet RxNorm: 675657 Take 2 Tablet(s) Feeding Tube / PEG two times a day as needed for constipation 4 No Stop Date Active amlodipine 10 mg tablet RxNorm: 533508 Take 1 Tablet(s) Feeding Tube / PEG once daily 08/13/20 25 Active clopidogrel 75 mg tablet RxNorm: 219483 Take 1 Tablet(s) Feeding Tube / PEG once daily 08/13/20 25 Active Pen Needle 31 gauge x 5/16 RxNorm: Take 1 Pen Needle Subcutaneous three times a day 08/13/20 25 Active famotidine 20 mg tablet RxNorm: 561514 Take 1 Tablet(s) Feeding Tube / PEG two times a day 08/13/20 25 Active thiamine HCl (vitamin B1) 100 mg tablet RxNorm: 236482 Take 1 Tablet(s) Feeding Tube / PEG every day 08/13/20 25 Active folic acid 1 mg tablet RxNorm: 134057 Take 1 Tablet(s) Feeding Tube / PEG every day 08/13/20 25 Active multivit-mineral- folic acid 333 mcg-lutein 3 mg-zeaxant 0.67 mg tablet RxNorm: Take 1 Tablet(s) Oral every day 4 No Stop Date Active Lantus Solostar U-100 Insulin 100 unit/mL (3 mL) subcutaneous pen RxNorm: 397477 Administer 15 Unit(s) Subcutaneous every night at bedtime 08/13/20 25 Active loratadine 10 mg tablet RxNorm: 971868 Take 1 Tablet(s) Feeding Tube / PEG every day 08/13/20 25 Active albuterol sulfate HFA 90 mcg/actuation aerosol inhaler RxNorm: 1686057 Administer 2 Puff(s) Inhalation every 4 to 6 hours 4 01/16/20 25 Active Medication Administered No Medication Administered data Results Observation Observation Code Item Item Code Result Date Service Location COMPLETE CBC W/ DIFF WBC 01336 WBC 6690-2 6.8 K/ul 024 [facility] [address] [place] [address] COMPLETE CBC W/ DIFF WBC 58864 RBC 789-8 3.89 M/uL 024 [facility] [address] [place] [address] COMPLETE CBC W/ DIFF WBC 40898 Hemoglobin 718-7 10.6 g/dL 024 [facility] [address] [place] [address] COMPLETE CBC W/ DIFF WBC 14786 Hematocrit 4544-3 32.2 % 024 [facility] [address] [place] [address] COMPLETE CBC W/ DIFF WBC 91012 MCV 787-2 82.9 fL 024 [facility] [address] [place] [address]40[address] COMPLETE CBC W/ DIFF WBC 34512 MCH 785-6 27.3 pg 024 [facility] [address] [place] [address] 756[address] COMPLETE CBC W/ DIFF WBC 44907 MCHC 786-4 32.9 g/dL 024 [facility] [address] [place] [address] 26829 COMPLETE CBC W/ DIFF WBC 78495 RDW 788-0 15.5 % 024 [facility] [address] [place] [address] 67457 COMPLETE CBC W/ DIFF WBC 60987 Platelet Count 777-3 303 K/uL 024 [facility] [address] [place] [address] 48184 COMPLETE CBC W/ DIFF WBC 68975 MPV 33283-5 8.0 fL 024 [facility] [address] [place] [address] 31823 COMPLETE CBC W/ DIFF WBC 74645 Neutrophils % 770-8 51.2 % 024 [facility] [address] [place] [address] 33370 COMPLETE CBC W/ DIFF WBC 09272 Lymphocytes % 736-9 39.8 % 024 [facility] [address] [place] [address] 45684 COMPLETE CBC W/ DIFF WBC 16865 Monocytes % 5905-5 6.7 % 024 [facility] [address] [place] [address] 889[address] COMPLETE CBC W/ DIFF WBC 62169 Eosinophils % 713-8 2.1 % 024 [facility] [address] [place] [address] COMPLETE CBC W/ DIFF WBC 15679 Basophils% 706-2 0.2 % 024 [facility] [address] [place] [address] 216[address] COMPLETE CBC W/ DIFF WBC 81531 Absolute Neutrophil 751-8 3482 /ul 024 [facility] [address] [place] [address] 43604 COMPLETE CBC W/ DIFF WBC 01792 Absolute Lymphocyte 63764-9 2706 /ul 024 [facility] [address] [place] [address] 59340 COMPLETE CBC W/ DIFF WBC 35895 Absolute Monocyte 742-7 456 /ul 024 [facility] [address] [place] [address] 20707 COMPLETE CBC W/ DIFF WBC 47914 Absolute Eosinophil 711-2 143 /ul 024 [facility] [address] [place] [address] 39698 COMPLETE CBC W/ DIFF WBC 92737 Absolute Basophil 704-7 14 /ul 024 [facility] [address] [place] [address] 30543 Direct LDL 99837 LDL-Direct 78252-8 117 mg/dL 024 [facility] [address] [place] [address] 57448 TRIGLYCERIDES 72509 Triglycerides 2571-8 173 mg/dL 024 [facility] [address] [place] [address] 19740 TRIGLYCERIDES 82257 VLDL 62749-1 35 mg/dL 0[address] [facility] [address] [place] [address] 88370 CHOLESTEROL 39714 Cholesterol 2093-3 177 mg/dL 0[address] [facility] [address] [place] [address] 49534 CHEM 14 (METABOLIC PANEL) 34054 Glucose 2345-7 138 mg/dL 0[address] [facility] [address] [place] [address] 82390 CHEM 14 (METABOLIC PANEL) 38645 BUN 3094-0 21 mg/dL 0[address] [facility] [address] [place] [address] 99976 CHEM 14 (METABOLIC PANEL) 84990 Creatinine 2160-0 0.8 mg/dL 0[address] [facility] [address] [place] [address] 78003 CHEM 14 (METABOLIC PANEL) 82532 BUN/Creat Ratio 3097-3 25.7 024 [facility] [address] [place] [address] CHEM 14 (METABOLIC PANEL) 46076 GFR Estimated 57603-9 97 mL/min/1. 73m2 024 [facility] [address] [place] [address] CHEM 14 (METABOLIC PANEL) 09589 Sodium 2951-2 139 mmol/L 024 [facility] [address] [place] [address] 44679 CHEM 14 (METABOLIC PANEL) 19539 Potassium 2823-3 4.0 mmol/L 0[address] [facility] [address] [place] [address] 44282 CHEM 14 (METABOLIC PANEL) 44819 Chloride 2075-0 98 mmol/L 0[address] [facility] [address] [place] [address] 09022 CHEM 14 (METABOLIC PANEL) 33291 Total CO2 2028-9 30 mmol/L 0[address] [facility] [address] [place] [address] 46381 CHEM 14 (METABOLIC PANEL) 63710 Anion Gap 1863-0 15.0 mEq/L 024 [facility] [address] [place] [address] 60040 CHEM 14 (METABOLIC PANEL) 31457 Calculated Serum Osmolality 08143-6 293 mOsm/kg 024 [facility] [address] [place] [address] 17070 CHEM 14 (METABOLIC PANEL) 04487 Albumin 72867-3 3.1 g/dL 0[address] [facility] [address] [place] [address] 12591 CHEM 14 (METABOLIC PANEL) 29195 Total Protein 2885-2 7.5 g/dL 0[address] [facility] [address] [place] [address] 79400 CHEM 14 (METABOLIC PANEL) 48189 Globulin 2336-6 4.4 g/dL 0[address] [facility] [address] [place] [address] 33680 CHEM 14 (METABOLIC PANEL) 01261 Albumin/Globulin Ratio 1759-0 0.7 0[address] [facility] [address] [place] [address] 73520 CHEM 14 (METABOLIC PANEL) 46854 ALK PHOS 6768-6 66.00 U/L 024 [facility] [address] [place] [address] 78583 CHEM 14 (METABOLIC PANEL) 93085 SGOT/AST 1920-8 13 U/L 024 [facility] [address] [place] [address] 91584 CHEM 14 (METABOLIC PANEL) 63391 SGPT/ALT 1743-4 19 U/L 024 [facility] [address] [place] [address] CHEM 14 (METABOLIC PANEL) 56484 Total Bilirubin 1975-2 0.3 mg/dL 024 [facility] [address] [place] [address] CHEM 14 (METABOLIC PANEL) 30030 Calcium 94832-9 9.4 mg/dL 024 [facility] [address] [place] [address] CHEM 14 (METABOLIC PANEL) 23510 Corrected Calcium 31672-0 10.3 mg/dL 024 [facility] [address] [place] [address] PTH 75624 PTH 2731-8 21.7 pg/mL 024 [facility] [address] [place] [address] VITAMIN B-12 42852 Vitamin B12 2132-9 609 pg/mL 05/22 024 [facility] [address] [place] [address] [id number] IN [facility]8 Glyco HGB A1C 64221-6 7.0 % 024 [facility] [address] [place] [address] [id number] IN [facility]84 eAG 58229-0 154 mg/dL 024 [facility] [address] [place] [address] HDL - CHOL 57834 HDL 2085-9 30 mg/dL 024 [facility] [address] [place] [address] HDL - CHOL 75457 CHD 12899-7 17 % 024 [facility] [address] [place] [address] TSH 21473 TSH 78984-1 2.540 uIU/mL 024 [facility] [address] [place] [address] Procedures Procedure Codes Date MED LIST DOCD IN [facility] CPT-4: 1159F 05/21/2024 RVW MEDS BY RX/DR IN [facility] CPT-4: 1160F 2023 Discharge Meds Reconciled w/ Current Med list CP T-4: 1111F 05/21/2024 Amnt pain noted; none prsnt CPT-4: 1126F 04/2024 Screening for clinical depre ssion is negative, follow-up plan not required CPT-4: G8510 05/21/2024 Patient Screened for Future Fall Risk CPT-4: 110 0F 05/21/2024 Fall plan of care doc'd CPT-4: 0518F 05/21/20 24 [id number] CPT-4: 11809 Unknown Vital Signs Date Vital 05/21/2024 Blood Pressure 1: 135/82 Code: 8480-6 BMI: 32.3 Code: 12793-0 Heart Rate 1: 84 bpm Height: 6'4 Code: 8302-2 Respiratory Rate: 17 bpm SpO2: 93% Temperature: 35.6 (C) / 96.0 (F) Weight: 265 lbs Code: 08802-0 Reason For Visit Reason For Visit Effective Dates Notes new patient visit 05/21/2024 Encounters Encounter Performer Location Location Address Codes Eric e ([id number]) Home or Residence Visit NUCLEAR PHARMACIST - Moderate Level, 60 mins Diagnosis: Hemiparesis due to recent cerebrovascular accident (CVA)[ICD10: I69.359] Diagnosis: Gastrostomy present[ICD10: Z93.1] Diagnosis: Diabetes mellitus due to underlying condition with diabetic neuropathy, with long-term current use of insulin[ICD10: E08.40] Diagnosis: Hypertension with heart disease[ICD10: I11.9] Diagnosis: Dysphagia as late effect of cerebrovascular accident (CVA)[ICD10: I69.391] Diagnosis: jail (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[ICD10: Z79.4] Diagnosis: Dysarthria [...] examination with abnormal findings[ICD10: Z00.01] Sean Kyle [place] [facility] [address] [place] [address] CPT-4: 44615 Plan of Care Planned Activity Notes Codes Status Date Patient Education: Patient Medication Summary Completed 05/21/2024 Patient Education: Obesity Completed 05/21/2024 Referral: Pending Medical Records Information M requires Consent when requesting records, there i currently no consent on file for the patient can we get consent uploaded to [facility] so we can finish the request. thank you On Hold ? Awaiting Documentation Referral: [facility] WPtel: [address] [place] [address] [address] [id number] 05/22/2024 order faxed to agency. Order Faxed Referral: Pending Shuttle Driver Referral Information lv , provided the above agency information. Instructed to call O&R department if they do not hear back from agency withing 7-10 days.05/22/24 no answer, lvm to cb Spoke with office HVS Referral faxed to:[employer] Agency Name: _[employer] Agency Address:_ [address], [place] [address] Agency Phone #:_ Agency _ Agency will contact the patient to schedule appointment. Order Faxed Referral: Pending Incontinence Supplies Order Information called and spoke to Nanette woods advised contact number given Order Faxed Referral: Sean Kyle WPtel: [address] [place], [place] [id number] Referral Order Faxed Referral: Pending DME Order Information called and spoke to mercde woods advised Not Taken Up - Patient Insurance Medical Equipment No Medical Equipment data Advance Directives No Advance Directive data
--- OUTSIDE RECORDS SUMMARY | 2024-10-11 19:48 | XMS_ITS | CCD ---
Author Name Saroj DAVIS, Dr Amanda escalona Address [address] [place] [address] Phone Organization [facility] Phone Care Team Providers Care Emergency Response Technician Name Role Phone Saroj DAVIS, Dr Estrada Primary Care Provider Unav ailable Unavailable Chronic Care Management Unavaila ble Summary Purpose DataExchange Insurance Providers Payer name Policy type / Coverage type Covered constitution party ID Effective Begin Date Effective End Date [place] [id number] Unknown Family history Sister Diagnosis Age At [...] No Inactive Date Active LISINOPRIL angioedema RxNorm: 67307 05/21/2024 No Inactive D ate Active Penicillin [...] disease ICD-10: I11.9 ICD-9: 402.90 07/24/2024 Active 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 Hold for loose stools. 4 08/17/20 25 Active ipratropium 0.5 mg-albuterol 3 mg (2.5 mg base)/3 mL nebulization soln RxNorm: 4579161 Administer 3 Milliliter(s) Inhalation every 6 hours as needed for shortness of breath 4 06/24/20 24 Inactive buspirone 5 mg tablet RxNorm: 674966 Take 1 Tablet(s) Oral three times a day 4 07/23/20 24 Inactive aspirin 81 mg chewable tablet RxNorm: 757570 Take 1 Tablet(s) Feeding Tube / PEG every day 4 08/13/20 25 Active atorvastatin 40 mg tablet RxNorm: 697473 Take 1 Tablet(s) Feeding Tube / PEG every night at bedtime 08/13/20 25 Active Senna Plus 8.6 mg-50 mg tablet RxNorm: 304832 Take 2 Tablet(s) Feeding Tube / PEG two times a day as needed for constipation 4 07/29/20 24 Inactive amlodipine 10 mg tablet RxNorm: 546113 Take 1 Tablet(s) Feeding Tube / PEG once daily 4 08/13/20 25 Active clopidogrel 75 mg tablet RxNorm: 045002 Take 1 Tablet(s) Feeding Tube / PEG once daily 4 08/13/20 25 Active Pen Needle 31 gauge x 5/16 RxNorm: Take 1 Pen Needle Subcutaneous three times a day 4 08/13/20 25 Active famotidine 20 mg tablet RxNorm: 927419 Take 1 Tablet(s) Feeding Tube / PEG two times a day 08/13/20 25 Active thiamine HCl (vitamin B1) 100 mg tablet RxNorm: 893424 Take 1 Tablet(s) Feeding Tube / PEG every day 08/13/20 25 Active folic acid 1 mg tablet RxNorm: 858905 Take 1 Tablet(s) Feeding Tube / PEG every day 08/13/20 25 Active multivit-mineral -folic acid 333 mcg-lutein 3 mg-zeaxant 0.67 mg tablet RxNorm: Take 1 Tablet(s) Oral every day 4 No Stop Date Active Lantus Solostar U-100 Insulin 100 unit/mL (3 mL) subcutaneous pen RxNorm: 975306 Administer 15 Unit(s) Subcutaneous every night at bedtime 08/13/20 25 Active loratadine 10 mg tablet RxNorm: 274177 Take 1 Tablet(s) Feeding Tube / PEG every day 08/13/20 25 Active albuterol sulfate HFA 90 mcg/actuation aerosol inhaler RxNorm: 1429249 Administer 2 Puff(s) Inhalation every 4 to 6 hours 01/16/20 25 Active Medication Administered No Medication Administered data Procedures Procedure Codes Date Annual Wellness Visit (Initial Visit) CPT-4: G04 38 07/24/2024 FLU VACC CELL CULT PRSV FREE CPT-4: 32235 07/2024 Most recent A1c = 7.0% and < 8.0% CPT-4: 3051F 07/24/2024 FLU VACC CELL CULT PRSV FREE CPT-4: 27053 07/2024 Admin flu virus vaccine CPT-4: G0008 07/24/20 24 LEVEL OF ACTIVITY ASSESS CPT-4: 1003F 024 PT SCRN TBCO ID NON USER CPT-4: G9903 07/15 Current tobacco non-user CPT-4: 1036F 024 Amnt pain noted; none prsnt CPT-4: 1126F 07/15 MED LIST DOCD IN [facility] CPT-4: 1159F 07/24/2024 RVW MEDS BY RX/DR IN [facility] CPT-4: 1160F 2023 Patient Screened for Future Fall Risk CPT-4: 110 0F 07/24/2024 Fall plan of care doc'd CPT-4: 0518F 07/24/20 24 Cologuard CPT-4: 51273 Unknown [id number] CPT-4: 71709 Unknown Gastroenterology Referral SNOMED CT: [id number] CPT-4: R12 Unknown Vital Signs Date Vital 07/24/2024 Blood Pressure 1: 120/82 Code: 8480-6 BMI: 32.3 Code: 73391-1 Heart Rate 1: 81 bpm Height: 6'4 Code: 8302-2 Respiratory Rate: 16 bpm SpO2: 97% Temperature: 36.1 (C) / 97.0 (F) Weight: 265 lbs Code: 32647-4 Reason For Visit Reason For Visit Effective [...] disease)[ICD10: K21.9] Diagnosis: Gastrostomy present[ICD10: Z93.1] 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 On PT progressing J45.909-493.90 Asthma K21.9-530.81 GERD (gastroesophageal reflux disease): On Pepcid 07/24/2024 Patient Education: Obesity Completed 07/24/2024 Patient Education: AWV Preventative Screening Schedule 2020 Completed 07/24/2024 Patient Education: Patient Medication Summary Completed 07/24/2024 Appointment: Sean Kyle WPtel: [address] [place], [place] [phone] [id number] 06/24/2024 Appointment: Oscar Hoyt WPtel: [address] [facility] [address] [id number] [place] Phone Call 06/20/2024 Appointment: Mony Moseley WPtel: [address] [place], [place] [phone] [place] Phone Call 06/06/2024 Appointment: Mony Moseley WPtel: [address] [place], [place] [phone] [place] Phone Call 05/26/2024 Appointment: Sean Kyle WPtel: [address] [place], [place] [phone] [id number] 05/21/2024 Referral: [facility] WPtel: [address] [place] [address] 157 [id number] [place] Referral faxed to: Agency Name: [facility] [facility] Agency Address: [address] [facility] [address], [place] [address] Agency Phone #: [phone] Agency Agency will contact the patient to schedule Order Faxed Referral: Pending Medical Records Information M requires Consent when requesting records, there i currently no consent on file for the patient can we get consent uploaded to [facility] so we can finish the request. thank you On Hold ? Awaiting Documentation Referral: [facility] WPtel: [address] [place] [phone] [facility]- Dr Ruiz [address] [facility] [address], [place] [address] Reprocess Referral: [facility] WPtel: [address] [place] [address] 05/22/2024 order faxed to agency. Not Taken Up Referral: Pending Plant Guide Referral Information lvm , provided the above agency information. Instructed to call O&R department if they do not hear back from agency withing 7-10 days.05/22/24 no answer, lvm to cb Spoke with office HVS Referral faxed to:[employer] Agency Name: _[employer] Agency Address:_ [address], [place] [address] Agency Phone #:_ Agency _ Agency will contact the patient to schedule appointment. Order Faxed Referral: Sean Kyle WPtel: [address] [facility] Agency contacted, confirmed they're accepting new patients. They will run insurance once order is received Referral faxed to: Agency Name: [employer] Agency Address: [address] , [address], [place] [address] Agency Phone #:[phone] Agency Agency will ship to patient. pt has referral info Order Faxed Referral: [facility] WPtel: [address] [facility] Notes & referral faxed to [facility] [phone] Order Faxed Referral: Pending Incontinence Supplies Order Information called and spoke to Nanette patient JUDY peggy advised contact number given Order Faxed Referral: Sean Kyle WPtel: [address] [facility] 06-24-2024. Called pt. spoke with Jenn Do [...] insulin: Stable Hba1c 7.0. 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 On PT progressing J45.909-493.90 Asthma K21.9-530.81 GERD (gastroesophageal reflux disease): On Pepcid 07/24/2024 Medical Equipment No Medical Equipment data Advance Directives No Advance Directive data
--- OUTSIDE RECORDS SUMMARY | 2024-10-11 19:48 | XMS_ITS | CCD ---
Author Name Saroj DAVIS, Dr Amanda escalona Address [address] [place] [address] Phone Organization [facility] Phone Care Team Providers Care Shingler Name Role Phone Unavailable Primary Care Provider Unavailabl e Unavailable Chronic Care Management Unavaila ble Summary Purpose DataExchange Insurance Providers Payer name Policy type / Coverage type Covered alliance party ID Effective Begin Date Effective End Date [place] [id number] Unknown Family history Sister Diagnosis Age At [...] No Inactive Date Active LISINOPRIL angioedema RxNorm: 63836 05/21/2024 No Inactive D ate Active Penicillin [...] disease ICD-10: I11.9 ICD-9: 402.90 07/24/2024 Active USP (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 ICD-1 0: Z79.4 [...] Syncope ICD-10: R55 ICD-9: 780.2 06/24/2024 Active USP (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 ICD-10: Z79.4 05/21 Active Urinary incontinence ICD-10: R32 ICD-9: 788.30 05/21/2024 Active Medications Medication Codes Instructions Start Date Stop Date Status Fill Instructions ipratropium 0.5 mg-albuterol 3 mg (2.5 mg base)/3 mL nebulization soln RxNorm: 1746664 Inhale 3 Milliliter(s) Inhalation every 6 hours as needed for shortness of breath 4 11/19/19 25 Active albuterol sulfate HFA 90 mcg/actuation aerosol inhaler RxNorm: 6621220 Administer 2 Puff(s) Inhalation every 4 to 6 hours 4 12/20/19 25 Active buspirone 5 mg tablet RxNorm: 443891 Take 1 Tablet(s) Oral three times a day 4 10/26/19 25 Active Senna Plus 8.6 mg-50 mg tablet RxNorm: 188297 Take 2 Tablet(s) Oral two times a day as needed for constipation 4 07/28/20 24 Inactive multivitamin tablet RxNorm: Take 1 Tablet(s) Oral every day 4 10/20/19 26 Active buspirone 5 mg tablet RxNorm: 155275 Take 1 Tablet(s) Oral two times a day 4 10/16/19 26 Active polyethylene glycol 3350 17 gram/dose oral powder RxNorm: 981778 Use 1 Unit Dose Oral every day Mix 17g (one capful) with 8oz liquid. Hold for loose stools. 4 08/17/20 25 Active ipratropium 0.5 mg-albuterol 3 mg (2.5 mg base)/3 mL nebulization soln RxNorm: 4019936 Administer 3 Milliliter(s) Inhalation every 6 hours as needed for shortness of breath 4 08/22/20 24 Inactive buspirone 5 mg tablet RxNorm: 595024 Take 1 Tablet(s) Oral three times a day 07/23/20 24 Inactive aspirin 81 mg chewable tablet RxNorm: 696110 Take 1 Tablet(s) Feeding Tube / PEG every day 08/13/20 Active atorvastatin 40 mg tablet RxNorm: 701094 Take 1 Tablet(s) Feeding Tube / PEG every night at bedtime 08/13/20 25 Active amlodipine 10 mg tablet RxNorm: 242423 Take 1 Tablet(s) Feeding Tube / PEG once daily 08/13/20 25 Active clopidogrel 75 mg tablet RxNorm: 451728 Take 1 Tablet(s) Feeding Tube / PEG once daily 08/13/20 25 Active Pen Needle 31 gauge x 5/16 RxNorm: Take 1 Pen Needle Subcutaneous three times a day 08/13/20 25 Active famotidine 20 mg tablet RxNorm: 648072 Take 1 Tablet(s) Feeding Tube / PEG two times a day 08/13/20 25 Active thiamine HCl (vitamin B1) 100 mg tablet RxNorm: 197983 Take 1 Tablet(s) Feeding Tube / PEG every day 08/13/20 25 Active folic acid 1 mg tablet RxNorm: 022778 Take 1 Tablet(s) Feeding Tube / PEG every day 08/13/20 25 Active multivit-mineral -folic acid 333 mcg-lutein 3 mg-zeaxant 0.67 mg tablet RxNorm: Take 1 Tablet(s) Oral every day 4 No Stop Date Active Lantus Solostar U-100 Insulin 100 unit/mL (3 mL) subcutaneous pen RxNorm: 388988 Administer 15 Unit(s) Subcutaneous every night at bedtime 08/13/20 25 Active loratadine 10 mg tablet RxNorm: 611033 Take 1 Tablet(s) Feeding Tube / PEG every day 08/13/20 25 Active Senna Plus 8.6 mg-50 mg tablet RxNorm: 580481 Take 2 Tablet(s) Feeding Tube / PEG two times a day as needed for constipation 07/29/20 24 Inactive albuterol sulfate HFA 90 mcg/actuation aerosol inhaler RxNorm: 0658399 Administer 2 Puff(s) Inhalation every 4 to 6 hours 4 05/21/20 24 Inactive Medication Administered No Medication Administered data Results Observation Observation Code Item Item Code Result Date Service Location COMPLETE CBC W/ DIFF WBC 51566 WBC 6690-2 6.8 K/ul [facility] [address] [place] [address] 52068 COMPLETE CBC W/ DIFF WBC 15375 RBC 789-8 3.89 M/uL [facility] [address] [place] [address] 35696 COMPLETE CBC W/ DIFF WBC 90679 Hemoglobin 718-7 10.6 g/dL [facility] [address] [place] [address] 64281 COMPLETE CBC W/ DIFF WBC 05435 Hematocrit 4544-3 32.2 % [facility] [address] [place] [address] 06175 COMPLETE CBC W/ DIFF WBC 86922 MCV 787-2 82.9 fL [facility] [address] [place] [address] 11980 COMPLETE CBC W/ DIFF WBC 71556 MCH 785-6 27.3 pg [facility] [address] [place] [address] 72948 COMPLETE CBC W/ DIFF WBC 75165 MCHC 786-4 32.9 g/dL 024 [facility] [address] [place] [address] 51662 COMPLETE CBC W/ DIFF WBC 81760 RDW 788-0 15.5 % [facility] [address] [place] [address] 91614 COMPLETE CBC W/ DIFF WBC 03394 Platelet Count 777-3 303 K/uL [facility] [address] [place] [address] 87550 COMPLETE CBC W/ DIFF WBC 52805 MPV 05306-8 8.0 fL [facility] [address] [place] [address] 07223 COMPLETE CBC W/ DIFF WBC 45477 Neutrophils % 770-8 51.2 % [facility] [address] [place] [address] 11603 COMPLETE CBC W/ DIFF WBC 50849 Lymphocytes % 736-9 39.8 % [facility] [address] [place], [place] [address] COMPLETE CBC W/ DIFF WBC 33693 Monocytes % 5905-5 6.7 % 024 [facility] [address] [place] [address] COMPLETE CBC W/ DIFF WBC 16036 Eosinophils % 713-8 2.1 % 024 [facility] [address] [place] [address] COMPLETE CBC W/ DIFF WBC 85480 Basophils% 706-2 0.2 % 024 [facility] [address] [place] [address] COMPLETE CBC W/ DIFF WBC 79557 Absolute Neutrophil 751-8 3482 /ul 024 [facility] [address] [place] [address] COMPLETE CBC W/ DIFF WBC 51477 Absolute Lymphocyte 19177-4 2706 /ul 024 [facility] [address] [place] [address] 40775 COMPLETE CBC W/ DIFF WBC 98036 Absolute Monocyte 742-7 456 /ul 024 [facility] [address] [place] [address] 00236 COMPLETE CBC W/ DIFF WBC 99261 Absolute Eosinophil 711-2 143 /ul 024 [facility] [address] [place] [address] 98219 COMPLETE CBC W/ DIFF WBC 47415 Absolute Basophil 704-7 14 /ul 024 [facility] [address] [place] [address] 11660 Direct LDL 94015 LDL-Direct 58782-1 117 mg/dL 024 [facility] [address] [place] [address] 08703 TRIGLYCERIDES 26339 Triglycerides 2571-8 173 mg/dL 024 [facility] [address] [place] [address] 21131 TRIGLYCERIDES 93023 VLDL 59370-2 35 mg/dL 024 [facility] [address] [place] [address] 97772 CHOLESTEROL 43078 Cholesterol 2093-3 177 mg/dL 024 [facility] [address] [place] [address] 33612 CHEM 14 (METABOLIC PANEL) 32366 Glucose 2345-7 138 mg/dL 024 [facility] [address] [place] [address] 57711 CHEM 14 (METABOLIC PANEL) 25627 BUN 3094-0 21 mg/dL 024 [facility] [address] [place] [address] 76939 CHEM 14 (METABOLIC PANEL) 77533 Creatinine 2160-0 0.8 mg/dL 024 [facility] [address] [place] [address] 87004 CHEM 14 (METABOLIC PANEL) 57050 BUN/Creat Ratio 3097-3 25.7 024 [facility] [address] [place] [address] 93316 CHEM 14 (METABOLIC PANEL) 62700 GFR Estimated 67477-4 97 mL/min/1. 73m2 024 [facility] [address] [place] [address] CHEM 14 (METABOLIC PANEL) 07126 Sodium 2951-2 139 mmol/L 024 [facility] [address] [place] [address] 73589 CHEM 14 (METABOLIC PANEL) 06309 Potassium 2823-3 4.0 mmol/L 024 [facility] [address] [place] [address] 89562 CHEM 14 (METABOLIC PANEL) 89420 Chloride 2075-0 98 mmol/L 024 [facility] [address] [place] [address] 10271 CHEM 14 (METABOLIC PANEL) 24984 Total CO2 2028-9 30 mmol/L 024 [facility] [address] [place] [address] 72973 CHEM 14 (METABOLIC PANEL) 48928 Calculated Serum Osmolality 36679-5 293 mOsm/kg 024 [facility] [address] [place] [address] 94132 CHEM 14 (METABOLIC PANEL) 97628 Anion Gap 1863-0 15.0 mEq/L 024 [facility] [address] [place] [address] 38619 CHEM 14 (METABOLIC PANEL) 25054 Albumin 05237-3 3.1 g/dL 024 [facility] [address] [place] [address] 45325 CHEM 14 (METABOLIC PANEL) 85207 Total Protein 2885-2 7.5 g/dL 024 [facility] [address] [place] [address] 58506 CHEM 14 (METABOLIC PANEL) 18578 Globulin 2336-6 4.4 g/dL 024 [facility] [address] [place] [address] 08075 CHEM 14 (METABOLIC PANEL) 53746 Albumin/Globulin Ratio 1759-0 0.7 024 [facility] [address] [place] [address] 51949 CHEM 14 (METABOLIC PANEL) 14469 ALK PHOS 6768-6 66.00 U/L 024 [facility] [address] [place] [address] CHEM 14 (METABOLIC PANEL) 21849 SGOT/AST 1920-8 13 U/L 024 [facility] [address] [place] [address] CHEM 14 (METABOLIC PANEL) 48172 SGPT/ALT 1743-4 19 U/L 024 [facility] [address] [place] [address] CHEM 14 (METABOLIC PANEL) 57788 Total Bilirubin 1975-2 0.3 mg/dL 024 [facility] [address] [place] [address] CHEM 14 (METABOLIC PANEL) 22856 Calcium 02565-2 9.4 mg/dL 024 [facility] [address] [place] [address] CHEM 14 (METABOLIC PANEL) 72232 Corrected Calcium 03316-6 10.3 mg/dL 024 [facility] [address] [place] [address] PTH 34473 PTH 2731-8 21.7 pg/mL 024 [facility] [address] [place] [address] VITAMIN B-12 48006 Vitamin B12 2132-9 609 pg/mL 05/22 024 [facility] [address] [place] [address] 86707 [id number] IN 4548-4 Glyco HGB A1C 28158-3 7.0 % 024 [facility] [address] [place] [address] 31988 [id number] IN [facility] eAG 43765-9 154 mg/dL 024 [facility] [address] [place] [address] HDL - CHOL 17626 HDL 2085-9 30 mg/dL 024 [facility] [address] [place] [address] HDL - CHOL 44914 CHD 28445-6 17 % 024 [facility] [address] [place] [address] TSH 93226 TSH 34372-1 2.540 uIU/mL 024 [facility] [address] [place] [address] Procedures Procedure Codes Date Annual Wellness Visit (Initial Visit) CPT-4: G04 38 07/24/2024 FLU VACC CELL CULT PRSV FREE CPT-4: 76987 07/2024 Most recent A1c = 7.0% and < 8.0% CPT-4: 3051F 07/24/2024 FLUCEL VAX PFS VAC NO PRSV 0.5ML IM CPT-4: 72450 07/24/2024 Admin flu virus vaccine CPT-4: G0008 07/24/20 24 LEVEL OF ACTIVITY ASSESS CPT-4: 1003F 024 PT SCRN TBCO ID NON USER CPT-4: G9903 07/15 Current tobacco non-user CPT-4: 1036F 024 Amnt pain noted; none prsnt CPT-4: 1126F 07/15 MED LIST DOCD IN [facility] CPT-4: 1159F 07/24/2024 RVW MEDS BY RX/DR IN [facility] CPT-4: 116F 2023 Patient Screened for Future Fall Risk CPT-4: 110 0F 07/24/2024 Fall plan of care doc'd CPT-4: 0518F 07/24/20 24 Most recent A1c = 7.0% and < 8.0% CPT-4: 305F 06/24/2024 MED LIST DOCD IN [facility] CPT-4: 1159F 06/24/2024 RVW MEDS BY RX/DR IN [facility] CPT-4: 1160F 2023 Discharge Meds Reconciled w/ Current Med list CP T-4: 1111F 06/24/2024 Amnt pain noted; none prsnt CPT-4: 1126F 06/[address] CPT-4: 1159F 05/21/2024 RVW MEDS BY RX/DR IN [facility] CPT-4: 1160F 2023 Discharge Meds Reconciled w/ Current Med list CP T-4: 1111F 05/21/2024 Amnt pain noted; none prsnt CPT-4: 1126F 04/2024 Screening for clinical depre ssion is negative, follow-up plan not required CPT-4: G8510 05/21/2024 Patient Screened for Future Fall Risk CPT-4: 110 0F 05/21/2024 Fall plan of care doc'd CPT-4: 0518F 05/21/20 24 Cologuard CPT-4: 47472 Unknown [id number] CPT-4: 44482 Unknown Gastroenterology Referral SNOMED CT: 306 647697 CPT-4: R12 Unknown Vital Signs Date Vital 07/24/2024 Blood Pressure 1: 120/82 Code: 8480-6 BMI: 32.3 Code: 92059-9 Heart Rate 1: 81 bpm Height: 6'4 Code: 8302-2 Respiratory Rate: 16 bpm SpO2: 97% Temperature: 36.1 (C) / 97.0 (F) Weight: 265 lbs Code: 17833-1 06/24/2024 Blood Pressure 1: 134/76 Code: 8480-6 BMI: 34.6 Code: 62978-2 Heart Rate 1: 86 bpm Height: 6'4 Code: 8302-2 Respiratory Rate: 17 bpm SpO2: 94% Temperature: 36.4 (C) / 97.6 (F) Weight: 284 lbs Code: 52931-6 05/21/2024 Blood Pressure 1: 135/82 Code: 8480-6 BMI: 32.3 Code: 73266-0 Heart Rate 1: 84 bpm Height: 6'4 Code: 8302-2 Respiratory Rate: 17 bpm SpO2: 93% Temperature: 35.6 (C) / 96.0 (F) Weight: 265 lbs Code: 85672-3 Reason For Visit Reason For Visit Effective [...] disease)[ICD10: K21.9] Diagnosis: Gastrostomy present[ICD10: Z93.1] Diagnosis: USP (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[ICD10: Z79.4] Diagnosis: At high risk for falls[ICD10: Z91.81] [facility] [address] [place] [address] CPT-4: G0438 4 (22722) Home or Residence Visit Est Pt - [...] ] Diagnosis: [ICD9: ] Diagnosis: [ICD9: ] [facility] [address] [place] [address] CPT-4: 61580 4 (80622) Home or Residence Visit Est Pt - Moderate Level, 40 mins Diagnosis: Syncope[ICD10: R55] Diagnosis: Hemiparesis due to recent cerebrovascular accident (CVA)[ICD10: I69.359] Diagnosis: Diabetes mellitus due to underlying condition with diabetic neuropathy, with long-term current use of insulin[ICD10: E08.40] 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[ICD10: Z79.4] Diagnosis: Hypertension [...] cancer screening[ICD10: Z12.11] Diagnosis: Paroxysmal cough[ICD10: R05.8] [facility] [address] [place] [address] CPT-4: 05564 4 (94444) Home or Residence 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 SURVEYOR 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 - Moderate Level, 60 mins Diagnosis: Hemiparesis due to recent cerebrovascular accident (CVA)[ICD10: I69.359] Diagnosis: Gastrostomy present[ICD10: Z93.1] Diagnosis: Diabetes mellitus due to underlying condition with diabetic neuropathy, with long-term current use of insulin[ICD10: E08.40] Diagnosis: Hypertension with heart disease[ICD10: I11.9] Diagnosis: Dysphagia as late effect of cerebrovascular accident (CVA)[ICD10: I69.391] Diagnosis: USP (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[ICD10: Z79.4] Diagnosis: Dysarthria [...] examination with abnormal findings[ICD10: Z00.01] [facility] [place] [facility] [address] [place] [address] CPT-4: 63067 4 Plan of Care Planned Activity Notes [...] insulin: Stable Hba1c 7.0. On Lantus Z79.4-V58.67 USP (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: On Lantus 15 [...] Pepcid 07/24/2024 Appointment: [facility] [facility] 07/24/2024 Patient Education: Obesity Completed 07/24/2024 [...] insulin: Stable. Hba1c 7.0. 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 bound. On PT/OT for strengthening, balance, coordination Z12.11-V76.51 Colon cancer screening: oguanolberto R05.8-786.2 Paroxysmal cough: poss due to poor pharyngeal reflex, GERD . Try Protonix. Oropharyngeal suctioning. Order Suction Aspirator 06/24/2024 Appointment: Sean Kyle WPtel: [address] [place] [address] E034 06/24/2024 Patient Education: Obesity Completed 06/24/2024 Patient Education: Patient Medication Summary Completed 06/24/2024 Care Plan: Cologuanolberto Ordered 06/15 Appointment: Oscar Hoyt WPtel: [address] [facility] [address] [id number] [place] Phone Call 06/20/2024 Appointment: Mony Moseley WPtel: [address] [place], [place] [id number] Phone Call 06/06/2024 Appointment: Mony Moseley WPtel: [address] [place], [place] [phone] Phone Call 05/26/2024 Visit Plan: I69.359-438.20 Hemiparesis [...] late effect of cerebrovascular accident (CVA) Z79.4- USP (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 I69.322-438.13 Dysarthria as [...] findings 05/21/2024 Appointment: Sean Kyle WPtel: [address] [facility] N034 05/21/2024 Patient Education: Patient Medication Summary Completed 05/21/2024 Patient Education: Obesity Completed 05/21/2024 Referral: [employer] WPtel: [address] [place] [address] Referral faxed to: Agency Name: [employer] Agency Address: [address] [place] [address] Agency Phone #: [phone] Agency Agency will contact the patient to schedule Order Faxed Referral: Pending Medical Records Information [facility] requires Consent when requesting records, there i currently no consent on file for the patient can we get consent uploaded to [facility] so we can finish the request. thank you On Hold ? Awaiting Documentation Referral: [facility] WPtel: [address] [place], [place] [phone] [facility]ly [facility]- Dr Ruiz [address] [facility], [facility] [address] [address] Reprocess Referral: [facility] WPtel: [address] 05/22/2024 order faxed to agency. Not Taken Up Referral: [facility] WPtel: [address] [facility] [address] [place] [address] Referral ACT - Recert Referral: Pending Commercial Loan Coordinator Referral Information lvm , provided the above agency information. Instructed to call O&R department if they do not hear back from agency withing 7-10 days.05/22/24 no answer, lvm to cb Spoke with office HVS Referral faxed to:[employer] Agency Name: _[employer] Agency Address:_ [address], [place] [address] Agency Phone #:_ Agency _ Agency will contact the patient to schedule appointment. Order Faxed Referral: Sean Kyle WPtel: [address] Agency contacted, confirmed they're accepting new patients. They will run insurance once order is received Referral faxed to: Agency Name: [employer] Agency Address: [address] [facility], [place] [address] Agency Phone #:[phone] Agency Agency will ship to patient. pt has referral info Order Faxed Referral: [facility] WPtel: [address] [facility] [address] [place], [place] [id number] Referral ACT - Cert Referral: [facility] WPtel: [address] Notes & referral faxed to [facility] [phone] Order Faxed Referral: Pending Incontinence Supplies Order Information called and spoke to Nanette patient ANAYELIA an advised contact number given Order Faxed Referral: Sean Kyle WPtel: [address] [place] [phone] 06-24-2024. Called pt. spoke with Jenn Do [...] insulin: Stable Hba1c 7.0. 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 . On PT progressing J45.909-493.90 Asthma [...] insulin: Stable. Hba1c 7.0. On Lantus Z79.4-V58.67 USP (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; On Lantus 15 [...] At high risk for falls: at present [facility] bound. On PT/OT for strengthening, balance, [...] late effect of cerebrovascular accident (CVA) Z79.4- predatory animal exterminator (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 I69.322-438.13 Dysarthria as [...]
--- OUTSIDE RECORDS SUMMARY | 2024-10-11 19:48 | XMS_ITS | CCD ---
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 ICD-1 0: Z79.4 [...] Syncope ICD-10: R55 ICD-9: 780.2 06/24/2024 Active [facility] (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 ICD-10: Z79.4 05/21 Active Urinary incontinence ICD-10: R32 ICD-9: 788.30 05/21/2024 Active Medications Medication Codes Instructions Start Date Stop Date Status Fill Instructions buspirone 5 mg tablet RxNorm: 919513 Take 1 Tablet(s) Oral three times a day 4 10/26/19 25 Active Senna Plus 8.6 mg-50 mg tablet RxNorm: 597211 Take 2 Tablet(s) Oral two times a day as needed for constipation 4 07/28/20 24 Inactive multivitamin tablet RxNorm: Take 1 Tablet(s) Oral every day 4 10/20/19 26 Active buspirone 5 mg tablet RxNorm: 163386 Take 1 Tablet(s) Oral two times a day 4 10/16/19 26 Active polyethylene glycol 3350 17 gram/dose oral powder RxNorm: 420358 Use 1 Unit Dose Oral every day Mix 17g (one capful) with 8oz liquid. Hold for loose stools. 4 08/17/20 25 Active ipratropium 0.5 mg-albuterol 3 mg (2.5 mg base)/3 mL nebulization soln RxNorm: 0816749 Administer 3 Milliliter(s) Inhalation every 6 hours as needed for shortness of breath 4 06/24/20 24 Inactive buspirone 5 mg tablet RxNorm: 357585 Take 1 Tablet(s) Oral three times a day 4 07/23/20 24 Inactive aspirin 81 mg chewable tablet RxNorm: 024876 Take 1 Tablet(s) Feeding Tube / PEG every day 4 08/13/20 25 Active atorvastatin 40 mg tablet RxNorm: 539283 Take 1 Tablet(s) Feeding Tube / PEG every night at bedtime 4 08/13/20 25 Active Senna Plus 8.6 mg-50 mg tablet RxNorm: 854612 Take 2 Tablet(s) Feeding Tube / PEG two times a day as needed for constipation 4 07/29/20 24 Inactive amlodipine 10 mg tablet RxNorm: 147801 Take 1 Tablet(s) Feeding Tube / PEG once daily 08/13/20 25 Active clopidogrel 75 mg tablet RxNorm: 531670 Take 1 Tablet(s) Feeding Tube / PEG once daily 08/13/20 25 Active Pen Needle 31 gauge x 5/16 RxNorm: Take 1 Pen Needle Subcutaneous three times a day 08/13/20 25 Active famotidine 20 mg tablet RxNorm: 885721 Take 1 Tablet(s) Feeding Tube / PEG two times a day 08/13/20 25 Active thiamine HCl (vitamin B1) 100 mg tablet RxNorm: 160381 Take 1 Tablet(s) Feeding Tube / PEG every day 08/13/20 25 Active folic acid 1 mg tablet RxNorm: 267168 Take 1 Tablet(s) Feeding Tube / PEG every day 08/13/20 25 Active multivit-mineral -folic acid 333 mcg-lutein 3 mg-zeaxant 0.67 mg tablet RxNorm: Take 1 Tablet(s) Oral every day 4 No Stop Date Active Lantus Solostar U-100 Insulin 100 unit/mL (3 mL) subcutaneous pen RxNorm: 514832 Administer 15 Unit(s) Subcutaneous every night at bedtime 08/13/20 25 Active loratadine 10 mg tablet RxNorm: 044365 Take 1 Tablet(s) Feeding Tube / PEG every day 08/13/20 25 Active albuterol sulfate HFA 90 mcg/actuation aerosol inhaler RxNorm: 3027601 Administer 2 Puff(s) Inhalation every 4 to 6 hours 01/16/20 25 Active Medication Administered No Medication Administered data Procedures Procedure Codes Date Annual Wellness Visit (Initial Visit) CPT-4: G04 38 07/24/2024 FLU VACC CELL CULT PRSV FREE CPT-4: 70852 07/2024 Cologuard CPT-4: 40276 Unknown [id number] CPT-4: 36225 Unknown Gastroenterology Referral SNOMED CT: 306 899905 CPT-4: R12 Unknown Reason For Visit No Reason For Visit data Plan of Care Planned Activity Notes Codes Status Date Referral: [employer] [facility] WPtel: [address] [id number] Referral faxed to: Agency Name: Rebecca [facility] Agency Address: [address], [place] [address] Agency Phone #: [phone] Agency Agency will contact the patient to schedule Order Faxed Referral: Pending Medical Records Information M requires Consent when requesting records, there i currently no consent on file for the patient can we get consent uploaded to [facility] so we can finish the request. thank you On Hold ? Awaiting Documentation Referral: [facility] WPtel: [address] [phone] [facility]- [address] [facility] [address], [place] [address] Reprocess Referral: [facility] WPtel: [address] [place] [address] 05/22/2024 order faxed to agency. Not Taken Up Referral: Pending [employer] Leader Referral Information lvm , provided the above agency information. Instructed to call O&R department if they do not hear back from agency withing 7-10 days.05/22/24 no answer, lvm to Spoke with office HVS Referral faxed to:[facility] Agency Name: _[facility] Agency Address:_ [address], [place] [address] Agency Phone #:_ Agency _ Agency will contact the patient to schedule appointment. Order Faxed Referral: Sean Kyle WPtel: [address] [phone] Agency contacted, confirmed they're accepting new patients. They will run insurance once order is received Referral faxed to: Agency Name: [employer] Agency Address: [address] , [place] [address], [place] [address] Agency Phone #:[phone] Agency Agency will ship to patient. pt has referral info Order Faxed Referral: [facility] WPtel: [address] Notes & referral faxed to [facility] [phone] Order Faxed Referral: Pending Incontinence Supplies Order Information called and spoke to Nanette patient POA an advised contact number given Order Faxed Referral: Sean Kyle WPtel: [address] [place], [place] [phone] 06-24-2024. Called pt. spoke with Jenn Do [...]
--- OUTSIDE RECORDS SUMMARY | 2024-10-11 19:48 | XMS_ITS | CCD ---
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 ICD-1 0: Z79.4 [...] (2.5 mg base)/3 mL nebulization soln RxNorm: 0777301 Inhale 3 Milliliter(s) Inhalation every 6 hours as needed for shortness of breath 4 11/19/19 25 Active albuterol sulfate HFA 90 mcg/actuation aerosol inhaler RxNorm: 5471722 Administer 2 Puff(s) Inhalation every 4 to 6 hours 4 12/20/19 25 Active buspirone 5 mg tablet RxNorm: 625323 Take 1 Tablet(s) Oral three times a day 4 10/26/19 25 Active Senna Plus 8.6 mg-50 mg tablet RxNorm: 310999 Take 2 Tablet(s) Oral two times a day as needed for constipation 4 07/28/20 24 Inactive multivitamin tablet RxNorm: Take 1 Tablet(s) Oral every day 4 10/20/19 26 Active buspirone 5 mg tablet RxNorm: 329233 Take 1 Tablet(s) Oral two times a day 4 10/16/19 26 Active polyethylene glycol 3350 17 gram/dose oral powder RxNorm: 624906 Use 1 Unit Dose Oral every day Mix 17g (one capful) with 8oz liquid. Hold for loose stools. 4 08/17/20 25 Active ipratropium 0.5 mg-albuterol 3 mg (2.5 mg base)/3 mL nebulization soln RxNorm: 4986223 Administer 3 Milliliter(s) Inhalation every 6 hours as needed for shortness of breath 4 08/22/20 24 Inactive buspirone 5 mg tablet RxNorm: 975430 Take 1 Tablet(s) Oral three times a day 4 07/23/20 24 Inactive aspirin 81 mg chewable tablet RxNorm: 511463 Take 1 Tablet(s) Feeding Tube / PEG every day 08/13/20 25 Active atorvastatin 40 mg tablet RxNorm: 532779 Take 1 Tablet(s) Feeding Tube / PEG every night at bedtime 08/13/20 25 Active amlodipine 10 mg tablet RxNorm: 495105 Take 1 Tablet(s) Feeding Tube / PEG once daily 08/13/20 25 Active clopidogrel 75 mg tablet RxNorm: 300839 Take 1 Tablet(s) Feeding Tube / PEG once daily 08/13/20 25 Active Pen Needle 31 gauge x 02/27 RxNorm: Take 1 Pen Needle Subcutaneous three times a day 08/13/20 25 Active famotidine 20 mg tablet RxNorm: 430334 Take 1 Tablet(s) Feeding Tube / PEG two times a day 08/13/20 25 Active thiamine HCl (vitamin B1) 100 mg tablet RxNorm: 954545 Take 1 Tablet(s) Feeding Tube / PEG every day 08/13/20 25 Active folic acid 1 mg tablet RxNorm: 518686 Take 1 Tablet(s) Feeding Tube / PEG every day 08/13/20 25 Active multivit-mineral -folic acid 333 mcg-lutein 3 mg-zeaxant 0.67 mg tablet RxNorm: Take 1 Tablet(s) Oral every day 4 No Stop Date Active Lantus Solostar U-100 Insulin 100 unit/mL (3 mL) subcutaneous pen RxNorm: 685100 Administer 15 Unit(s) Subcutaneous every night at bedtime 08/13/20 25 Active loratadine 10 mg tablet RxNorm: 602195 Take 1 Tablet(s) Feeding Tube / PEG every day 08/13/20 25 Active Senna Plus 8.6 mg-50 mg tablet RxNorm: 759292 Take 2 Tablet(s) Feeding Tube / PEG two times a day as needed for constipation 07/29/20 24 Inactive albuterol sulfate HFA 90 mcg/actuation aerosol inhaler RxNorm: 5796708 Administer 2 Puff(s) Inhalation every 4 to 6 hours 07/20 24 Inactive Medication Administered No Medication Administered data Procedures Procedure Codes Date Annual Wellness Visit (Initial Visit) CPT-4: G04 38 07/24/2024 FLU VACC CELL CULT PRSV FREE CPT-4: 42229 07/2024 Cologuard CPT-4: 59932 Unknown [id number] CPT-4: 72725 Unknown Gastroenterology Referral SNOMED CT: 306 147328 CPT-4: R12 Unknown Reason For Visit No Reason For Visit data Plan of Care Planned Activity Notes Codes Status Date Referral: [email or web address] WPtel: [address] [address] [place] Referral faxed to: Agency Name: [email or web address] Agency Address: [address] [place] [address] Agency Phone #: [phone] Agency Agency will contact the patient to schedule Order Faxed Referral: Pending Medical Records Information [facility] requires Consent when requesting records, there i currently no consent on file for the patient can we get consent uploaded to the [facility] so we can finish the request. thank you On Hold ? Awaiting Documentation Referral: [facility] WPtel: [address] [place], [place] [phone] [facility]- [address] [place] [address] Reprocess Referral: [facility] WPtel: [address] [place], [place] [id number] 05/22/2024 order faxed to agency. Not Taken Up Referral: [facility] WPtel: [facility] [facility] [address] [place] [id number] Referral ACT - Recert Referral: Pending Chief Yeoman Referral Information lvm , provided the above agency information. Instructed to call O&R department if they do not hear back from agency withing 7-10 days.05/22/24 no answer, lvm to Spoke with office HVS Referral faxed to:[employer] Agency Name: _[facility] Agency Address:_ [address], [place] [address] Agency Phone #:_ Agency _ Agency will contact the patient to schedule appointment. Order Faxed Referral: Sean Kyle WPtel: [address] [address] [place] Agency contacted, confirmed they're accepting new patients. They will run insurance once order is received Referral faxed to: Agency Name: [employer] Agency Address: [address] Le[address] , [facility] [address] [id number] Agency Phone #:[phone] Agency Agency will ship to patient. pt has referral info Order Faxed Referral: [facility] WPtel: [facility] [id number] [place] Referral ACT - HH Cert Referral: [facility] WPtel: [address] [place] [address] Notes & referral faxed to [facility] [phone] Order Faxed Referral: Pending Incontinence Supplies Order Information called and spoke to Nanette KIM an advised contact number given Order Faxed Referral: Sean Kyle WPtel: [address] 06-24-2024. Called pt. spoke with Jenn [...]
--- OUTSIDE RECORDS SUMMARY | 2024-10-11 19:49 | XMS_ITS | Encounter Summary ---
Author Organization [facility] Address [address] [place] [address]. 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 Kem Gómez DO 1 [place] [address] Phone: tel: fax: Referral ID Status Reason Start Date Expiration Date V isits Requested Visits Authorized [id number] Canceled 05/25/2024 05/25/2025 1 1 * Imaging (Emergency) - New Request Specialty Diagnoses / Procedures Referred By Contmegan t Referred To Contact RADIOLOGY Procedures CTA HEAD+NECK Brooke Mendoza DO 1 [place] [address] Phone: tel: fax: Referral ID Status Reason Start Date Expiration Date V isits Requested Visits Authorized [id number] New Request 05/25/2024 05/25/2025 1 1 * Imaging (Emergency) - New Request Specialty Diagnoses / Procedures Referred By Contac t Referred To Contact RADIOLOGY Procedures CT STROKE(HEAD WO) Brooke Mendoza DO 1 [place] [address] Phone: tel: fax: Referral ID Status Reason Start Date Expiration Date V isits Requested Visits Authorized [id number] New Request 05/25/2024 05/25/2025 1 1 * Procedure (Routine) - New Request Specialty Diagnoses / Procedures Referred By Contac t Referred To Contact Procedures EEG Brooke Mendoza DO 1 [place] [address] Phone: tel: fax: Referral ID Status Reason Start Date Expiration Date V isits Requested Visits Authorized [id number] New Request 05/24/2024 05/24/2025 1 1 * Imaging (Urgent) - New Request Specialty Diagnoses / Procedures Referred By Contac t Referred To Contact RADIOLOGY Procedures CT HEAD WO CON [place] [address] Phone: tel: [phone] fax: Referral ID Status Reason Start Date Expiration Date V isits Requested Visits Authorized [id number] New Request 05/23/2024 05/23/2025 1 1 * Imaging (Routine) - Pending Review Specialty Diagnoses / Procedures Referred By Contac t Referred To Contact RADIOLOGY Procedures USE ECHO 2D FU LTD W CON USE Al Treadwell, DEIDRE 1 [place] [address] Phone: tel: fax: Referral ID Status Reason Start Date Expiration Date V isits Requested Visits Authorized [id number] Pending Review 05/22/2024 05/22/2025 1 1 * (Routine) - Canceled Specialty Diagnoses / Procedures Referred By Contac t Referred To Contact Procedures OT eval and treat Al Cowart NP 1 [place] [address] Phone: tel: fax: Referral ID Status Reason Start Date Expiration Date V isits Requested Visits Authorized [id number] Canceled 05/22/2024 05/22/2025 1 1 * (Routine) - Canceled Specialty Diagnoses / Procedures Referred By Contac t Referred To Contact Procedures PT eval and treat Al Cowart NP 1 [place] [address] Phone: tel: fax: Referral ID Status Reason Start Date Expiration Date V isits Requested Visits Authorized [id number] Canceled 05/22/2024 05/22/2025 1 1 * Imaging (Emergency) - New Request Specialty Diagnoses / Procedures Referred By Contac t Referred To Contact RADIOLOGY Procedures CTA CHEST PE PROTOCOL Aquilino Melendez MD 1 [place] [address] Phone: tel: [phone] fax: Referral ID Status Reason Start Date Expiration Date V isits Requested Visits Authorized [id number] New Request 05/22/2024 05/22/2025 1 1 Reason for Visit * Reason Comments Altered Mental Status * Auth/Cert (Routine) Specialty Diagnoses / Procedures Referred By Contac t Referred To Contact Diagnoses Weakness Near syncope Need for case management follow-up Procedures NONE Aquilino Melendez MD 1 [place] [address] Phone: tel: [phone] fax: Referral ID Status Reason Start Date Expiration Date Visits Re quested Visits Authorized [id number] 1 1 Encounter Details Date Type Department Care Team (Late st Contact Info) Description 05/22/2024 3:52 PM CDT - 05/25/2024 6:54 PM CDT Hospital Encounter [facility] Intensive [facility] Unit [address] [place], [place] [id number] Mikel Simpson MD [address] [place] [id number] Aquilino Melendez MD 1 [place], [place] [id number] [phone] (Work) [place] [address] [phone] (Work) Brooke Mendoza DO 1 [place] [address] Altered Mental Status Discharge Disposition: Transfer to Acute Care Hospital Social History Tobacco Use Types Packs/Day Years Used Date Smoking Tobacco: Former Cigars Q uit: 01/23/2024 Passive Smoke Exposure: Past Smokeless Tobacco: Never Tobacco Cessation:Counseling Given: No Alcohol Use Standard Drinks/Week Comments Not Currently 0 (1 standard drink = 0.6 oz pure alcohol) History of ETOH use prior to stroke [facility] Utilities Answer Date Recorded In the past 12 months has [facility] electric, gas, oil, or water company threatened to shut off services in your home? Patient unable to answer 05/23/2024 Humiliation, Afraid, Rape, a nd Kick questionnaire Answer Date Recorded Within the last year, have y ou been afraid of your partner or ex-partner? Patient unable to answer 05/23/2024 Within the last year, have y ou been humiliated or emotionally abused in other ways by your partner or ex-partner? Patient unable to answer 05/23/2024 Within the last year, have y ou been kicked, hit, slapped, or otherwise physically hurt by your partner or ex-partner? Patient unable to answer 05/23/2024 Within the last year, have y ou been raped or forced to have any kind of sexual activity by your partner or ex-partner? Patient unable to answer 05/23/2024 Overall Financial Resource Strain (CARDIA) Answe r Date Recorded How hard is it for you to pa y for the very basics like food, housing, medical care, and heating? Patient unable to answer 05/23/2024 Hunger Vital Sign Answer Date Recorded Within the past 12 months, y ou worried that your food would run out before you got the money to buy more. Patient unable to answer 05/23/2024 Within the past 12 months, t he food you bought just didn't last and you didn't have money to get more. Patient unable to answer 05/23/2024 PRAPARE - Transportation Answer Date Re corded In the past 12 months, has l ack of transportation kept you from medical appointments or from getting medications? Patient unable to answer 05/23/2024 In the past 12 months, has l ack of transportation kept you from meetings, work, or from getting things needed for daily living? Patient unable to answer 05/23/2024 Housing Stability Vital Sign Answer Eric e Recorded In the last 12 months, was t here a time when you were not able to pay the mortgage or rent on time? Patient unable to answer 05/23/2024 In the past 12 months, how m any times have you moved where you were living? 0 05/23/2024 At any time in the past [address] [facility], were you homeless or living in a senior care (including now)? Patient unable to answer 05/23/2024 Sex and Gender Information Value Date Recorded Sex Assigned at Not on file Legal Sex Male 3:35 PM CDT Gender Identity Not on file Sexual Orientation Straight 05/22/2024 4: 24 PM CDT documented as of this encounter Last Filed Vital Signs Vital Sign Reading Time Taken Comments Blood Pressure 126/83 05/25/2024 6:00 PM CDT Pulse 73 05/25/2024 6:00 PM CDT Temperature 36.8 ??C (98.3 ??F) 05/25/2024 2:00 PM CD T Respiratory Rate 23 05/25/2024 6:00 PM CDT Oxygen Saturation 94% 05/25/2024 6:00 PM CDT Inhaled Oxygen Concentration - - Weight 120.2 kg (264 lb 15.9 oz) 05/25/2024 2:48 AM CDT Height 193 cm (6' 4 ) 05/22/2024 4:05 PM CDT Body Mass Index 32.26 05/22/2024 4:05 PM CDT documented in this encounter Functional Status * Question Answer Date of Assessment Author Status Do you have serious difficulty walking or climbing stairs? Yes 05/23/2024 12:00 AM CDT Beckie Hartman RN Activ e * Question Answer Date of Assessment Author Status Do you have difficulty dressing or bathing? Yes 05/23/2024 12:00 AM CDT Beckie Hartman RN A ctive Because of a physical, mental, or emotional condition, do you have difficulty doing errands alone such as visiting a doctor's office or shopping? Yes 05/23/2024 12:00 AM CDT Beckie Hartman RN Active * Are you deaf or do you have serious difficulty hearing Answer Date of Assessment Author Status No 05/23/2024 12:00 AM CDT Beckie Hartman RN Active * Are you blind or do you have serious difficulty seeing, even when wearing glasses? Answer Date of Assessment Author Status No 05/23/2024 12:00 AM CDT Beckie Hartman RN Active * Do you have serious difficulty walking or climbing stairs? Answer Date of Assessment Author Status Yes 05/23/2024 12:00 AM CDT Beckie Hartman RN Active * Do you have difficulty dressing or bathing? Answer Date of Assessment Author Status Yes 05/23/2024 12:00 AM CDT Beckie Hartman RN Active * Because of a physical, mental, or emotional condition, do you have difficulty doing errands alone such as visiting a doctor's office or shopping? Answer Date of Assessment Author Status Yes 05/23/2024 12:00 AM CDBeckie Barrera, ZACHARY Active documented as of this encounter Mental Status * Question Answer Entry Date Author Status Because of a physical, mental, or emotional condition, do you have serious difficulty concentrating, remembering, or making decisions? No 05/23/2024 12:00 AM Beckie Catherine RN A ctive * Because of a physical, mental, or emotional condition, do you have serious difficulty concentrating, remembering, or making decisions? Answer Entry Date Author Status No 05/23/2024 12:00 AM CDBeckie Barrera, ZACHARY Active documented in this encounter Discharge Summaries * Brooke Mendoza DO - 05/25/2024 7:01 PM CDT Images from the original note were not included. Hospitalist Discharge Summary Patient ID: Raza Solorio. male. 1960. Admit date: 05/22/2024 3:52 PM Discharge date and time: 05/25/24 Admitting Physician: Aquilino Melendez MD Attending Physician: Brooke Mendoza DO Primary Care Physician: Sean Kyle MD Discharge Physician: Brooke Mendoza DO Hospital Diagnosis: Near syncope Need for case management follow-up Confusion Admission Condition: critical Discharged Condition: Serious Code Status: Full Code Indication for Admission: Chief Complaint Patient presents with Altered Mental Status Readmission/Mortality Score at discharge: Low 0-28, Medium 29-58, High >59 LACE+ Score *This score is based on incomplete data Readmission Score: 72* Male Patient: 3 Urgent Admission: 15 Discharge Institution: - Length of Stay: 4 Alternative Level of Care Status: 0 ED Visits in Previous 6 Months: 0 Elective Admission in Previous Year: 0 Comorbidity Score (by age & number of urgent admissions): 50 - This score is not calculated because of inadequate data Hospital Course: 63 year old admitted for near syncope. Cardiology consulted, not cardiac related. Code stroke called on 05/25. Due to critical condition, patient was accepted to [facility] for further care Significant Diagnostic Studies: Recent Results (from the past 24 hour(s)) POCT glucose Collection Time: 05/24/24 9:10 PM Result Value Ref Range GLUCOSE POC 131 (H) 70 - 99 mg/dL POCT glucose Collection Time: 05/25/24 12:24 AM Result Value Ref Range GLUCOSE POC 138 (H) 70 - 99 mg/dL POCT glucose Collection Time: 05/25/24 5:48 AM Result Value Ref Range GLUCOSE POC 150 (H) 70 - 99 mg/dL MAGNESIUM Collection Time: 05/25/24 7:14 AM Result Value Ref Range MAGNESIUM 1.8 1.8 - 2.4 MG/DL COMPREHENSIVE METABOLIC PANEL Collection Time: 05/25/24 7:14 AM Result Value Ref Range GLUCOSE 143 (H) 70 - 99 MG/DL BUN 19 (H) 7 - 18 MG/DL CREATININE S/P/B 0.82 0.7 - 1.3 MG/DL SODIUM S/P/B 135 (L) 136 - 145 MMOL/L POTASSIUM S/P/B 3.6 3.5 - 5.1 MMOL/L CHLORIDE S/P/B 102 100 - 108 MMOL/L CO2 27.4 21 - 32 MMOL/L CALCIUM S/P/B 9.4 8.5 - 10.1 MG/DL BILIRUBIN TOTAL S/P/B 0.3 0.2 - 1.2 MG/DL TOTAL PROTEIN S/P/B 7.9 6.4 - 8.2 G/DL ALBUMIN S/P/B 2.8 (L) 3.4 - 5.0 G/DL AST 12 (L) 15 - 37 U/L ALT 22 16 - 60 U/L ALKALINE PHOSPHATASE S/P/B 68 50 - 136 U/L ANION GAP 5.6 5 - 15 MMOL/L BUN CREATININE RATIO 23.2 6 - 26 A/G RATIO 0.5 (L) 1.0 - 2.0 RATIO GFR ESTIMATE >90 >90 ML/MIN/1.73 M2 CBC W/DIFF AUTOMATED Collection Time: 05/25/24 7:14 AM Result Value Ref Range WBC 6.02 4.5 - 11.0 x10'3/uL RBC 3.96 (L) 4.70 - 6.10 x10'6/uL HGB 10.5 (L) 14.0 - 18.0 G/DL HCT 33.4 (L) 43.0 - 54.0 % MCV 84.3 80.0 - 94.0 FL MCH 26.5 (L) 27.0 - 31.0 PG MCHC 31.4 (L) 32.0 - 36.0 G/DL RDW 14.5 11.5 - 14.5 % PLT 270 130 - 400 x10'3/uL MPV 9.2 (L) 9.3 - 12.2 FL DIFFERENTIAL TYPE AUTOMATED DIFFERENTIAL NEUTROPHILS % 48.7 % LYMPHOCYTES % 40.4 % MONOCYTES % 8.1 % EOSINOPHILS 2.2 % BASOPHILS 0.3 % IMMATURE GRANS % 0.3 % ABS. NEUTROPHILS 2.93 1.80 - 7.70 x10'3/uL ABS. LYMPHOCYTES 2.43 1.00 - 4.80 x10'3/uL ABS. MONOCYTES 0.49 0.30 - 0.82 x10'3/uL ABS. EOSINOPHILS 0.13 0.04 - 0.54 x10'3/uL ABS. BASOPHILS 0.02 0.01 - 0.08 x10'3/uL ABS. IMMATURE GRANULOCYTES 0.02 0.00 - 0.49 x10'3/uL POCT glucose Collection Time: 05/25/24 10:17 AM Result Value Ref Range GLUCOSE POC 155 (H) 70 - 99 mg/dL TROPONIN, QUANT Collection Time: 05/25/24 10:28 AM Result Value Ref Range TROPONIN I HIGH SENSITIVITY 10 <79 ng/L CBC W/DIFF AUTOMATED Collection Time: 05/25/24 10:28 AM Result Value Ref Range WBC 6.45 4.5 - 11.0 x10'3/uL RBC 4.17 (L) 4.70 - 6.10 x10'6/uL HGB 11.0 (L) 14.0 - 18.0 G/DL HCT 35.2 (L) 43.0 - 54.0 % MCV 84.4 80.0 - 94.0 FL MCH 26.4 (L) 27.0 - 31.0 PG MCHC 31.3 (L) 32.0 - 36.0 G/DL RDW 14.6 (H) 11.5 - 14.5 % PLT 282 130 - 400 x10'3/uL MPV 9.7 9.3 - 12.2 FL DIFFERENTIAL TYPE AUTOMATED DIFFERENTIAL NEUTROPHILS % 47.6 % LYMPHOCYTES % 42.3 % MONOCYTES % 7.9 % EOSINOPHILS 1.7 % BASOPHILS 0.3 % IMMATURE GRANS % 0.2 % ABS. NEUTROPHILS 3.07 1.80 - 7.70 x10'3/uL ABS. LYMPHOCYTES 2.73 1.00 - 4.80 x10'3/uL ABS. MONOCYTES 0.51 0.30 - 0.82 x10'3/uL ABS. EOSINOPHILS 0.11 0.04 - 0.54 x10'3/uL ABS. BASOPHILS 0.02 0.01 - 0.08 x10'3/uL ABS. IMMATURE GRANULOCYTES 0.01 0.00 - 0.49 x10'3/uL COMPREHENSIVE METABOLIC PANEL Collection Time: 05/25/24 10:28 AM Result Value Ref Range GLUCOSE 144 (H) 70 - 99 MG/DL BUN 18 7 - 18 MG/DL CREATININE S/P/B 0.87 0.7 - 1.3 MG/DL SODIUM S/P/B 136 136 - 145 MMOL/L POTASSIUM S/P/B 4.2 3.5 - 5.1 MMOL/L CHLORIDE S/P/B 104 100 - 108 MMOL/L CO2 28.6 21 - 32 MMOL/L CALCIUM S/P/B 9.4 8.5 - 10.1 MG/DL BILIRUBIN TOTAL S/P/B 0.3 0.2 - 1.2 MG/DL TOTAL PROTEIN S/P/B 8.0 6.4 - 8.2 G/DL ALBUMIN S/P/B 2.8 (L) 3.4 - 5.0 G/DL AST 16 15 - 37 U/L ALT 23 16 - 60 U/L ALKALINE PHOSPHATASE S/P/B 69 50 - 136 U/L ANION GAP 3.4 (L) 5 - 15 MMOL/L BUN CREATININE RATIO 20.7 6 - 26 A/G RATIO 0.5 (L) 1.0 - 2.0 RATIO GFR ESTIMATE >90 >90 ML/MIN/1.73 M2 PROTIME/INR, VENOUS Collection Time: 05/25/24 11:14 AM Result Value Ref Range PROTIME 12.1 10.2 - 12.9 SEC INR 1.0 PARTIAL THROMBOPLASTIN TIME,PTT Collection Time: 05/25/24 11:14 AM Result Value Ref Range PTT 33.5 25.1 - 36.5 SEC AMMONIA Collection Time: 05/25/24 11:52 AM Result Value Ref Range AMMONIA 45 (H) 11 - 32 UMOL/L LACTIC ACID - SINGLE Collection Time: 05/25/24 11:52 AM Result Value Ref Range LACTIC ACID VENOUS 1.2 0.4 - 2.0 MMOL/L POCT glucose Collection Time: 05/25/24 1:30 PM Result Value Ref Range GLUCOSE POC 137 (H) 70 - 99 mg/dL POCT glucose Collection Time: 05/25/24 5:27 PM Result Value Ref Range GLUCOSE POC 105 (H) 70 - 99 mg/dL Discharge Exam: Filed Vitals: 05/25/24 1629 05/25/24 1630 05/25/24 1700 05/25/24 1800 BP: 123/78 123/78 129/82 126/83 Pulse: 72 73 74 73 Resp: 23 23 Temp: TempSrc: SpO2: 97% 97% 96% 94% Weight: Height: Discharge Medications: Medication List CONTINUE taking these medications Morning Afternoon Evening Bedtime As Needed acetaminophen 325 MG tablet Commonly known as: TYLENOL 2 tablets (650 mg total) by Gastrostomy Tube route every 6 (six) hours as needed. albuterol (2.5 MG/3ML) 0.083% nebulizer solution Commonly known as: PROVENTIL Inhale 3 mLs (2.5 mg total) into the lungs every 4 (four) hours as needed. amLODIPine 10 MG tablet Commonly known as: NORVASC 1 tablet (10 mg total) by Enteral route daily. aspirin 81 MG chewable tablet 1 tablet (81 mg total) by Enteral route daily. Last time this was given: 81 mg on May 25, 2024 1:21 PM Last time this was given: May 25, 2024 1:21 PM atorvastatin 40 MG tablet Commonly known as: LIPITOR 1 tablet (40 mg total) by Enteral route nightly at bedtime. Last time this was given: 80 mg on May 25, 2024 1:21 PM Last time this was given: May 25, 2024 1:21 PM busPIRone 5 MG tablet Commonly known as: BUSPAR 1 tablet (5 mg total) by Gastrostomy Tube route 3 (three) times daily. clopidogrel 75 MG tablet Commonly known as: PLAVIX 1 tablet (75 mg total) by Enteral route daily. Last time this was given: 75 mg on May 25, 2024 1:22 PM Last time this was given: May 25, 2024 1:22 PM famotidine 20 MG tablet Commonly known as: PEPCID 1 tablet (20 mg total) by Enteral route 2 (two) times daily. folic acid 1 MG tablet Commonly known as: FOLVITE 1 tablet (1 mg total) by Enteral route daily. heparin (porcine) 5000 UNIT/ML injection Inject 1 mL (5,000 Units total) into the skin 2 (two) times daily. Last time this was given: 5,000 Units on May 25, 2024 2:16 PM Last time this was given: May 25, 2024 2:16 PM hydrALAZINE 10 MG tablet Commonly known as: APRESOLINE 1 tablet (10 mg total) by Gastrostomy Tube route every 8 (eight) hours. loratadine 10 MG tablet Commonly known as: CLARITIN 1 tablet (10 mg total) by Gastrostomy Tube route daily. modafinil 200 MG tablet Commonly known as: PROVIGIL 1 tablet (200 mg total) by Enteral route daily. * Multiple Vitamin-Folic Acid Tabs 1 tablet by Enteral route daily. * multivitamin tablet 1 tablet by Gastrostomy Tube route daily. QUEtiapine 25 MG tablet Commonly known as: SEROquel 1 tablet (25 mg total) by Tube route 2 (two) times daily as needed. senna-docusate 8.6-50 MG tablet Commonly known as: SENOKOT-S 2 tablets by Enteral route 2 (two) times daily. thiamine 100 MG Tabs 1 tablet (100 mg total) by Enteral route daily. * This list has 2 medication(s) that are the same as other medications prescribed for you. Read thedirections carefully, and ask your doctor or other care provider to review them with you. Disposition: [facility] Time Spent on Dischargmore than 30 minutes Signed: Brooke Mendoza DO documented in this encounter Medications at Time of Discharge amLODIPine (NORVASC) 10 MG tablet 1 tablet (10 mg total) by Enteral route daily. 02/16/2024 aspirin 81 MG chewable tablet 1 tablet (81 mg total) by Enteral route daily. 02/16/2024 atorvastatin (LIPITOR) 40 MG tablet 1 tablet (40 mg total) by Enteral route nightly at bedtime. 02/15/2024 busPIRone (BUSPAR) 5 MG tablet 1 tablet (5 mg total) by Gastrostomy Tube route 3 (three) times daily. 03/12/2024 clopidogrel (PLAVIX) 75 MG tablet 1 tablet (75 mg total) by Enteral route daily. 02/16/2024 famotidine (PEPCID) 20 MG tablet 1 tablet (20 mg total) by Enteral route 2 (two) times daily. 02/15/2024 folic acid (FOLVITE) 1 MG tablet 1 tablet (1 mg total) by Enteral route daily. 02/16/2024 Heparin Sodium, Porcine, (HEPARIN, PORCINE,) 5000 UNIT/ML injection Inject 1 mL (5,000 Units total) into the skin 2 (two) times daily. 02/15/2024 hydrALAZINE (APRESOLINE) 10 MG tablet 1 tablet (10 mg total) by Gastrostomy Tube route every 8 (eight) hours. 03/12/2024 loratadine (CLARITIN) 10 MG tablet 1 tablet (10 mg total) by Gastrostomy Tube route daily. 04/11/2024 modafinil (PROVIGIL) 200 MG tablet 1 tablet (200 mg total) by Enteral route daily. 02/16/2024 Multiple Vitamin-Folic Acid Tab 1 tablet by Enteral route daily. 02/16/2024 multivitamin (THERA) tablet 1 tablet by Gastrostomy Tube route daily. 03/13/2024 QUEtiapine (SEROQUEL) 25 MG tablet 1 tablet (25 mg total) by Tube route 2 (two) times daily as needed. 04/11/2024 senna-docusate (SENOKOT-S) 8.6-50 MG tablet 2 tablets by Enteral route 2 (two) times daily. 02/15/2024 thiamine 100 MG Tab 1 tablet (100 mg total) by Enteral route daily. 02/16/2024 acetaminophen (TYLENOL) 325 MG tablet 2 tablets (650 mg total) by Gastrostomy Tube route every 6 (six) hours as needed. 03/12/2024 albuterol (PROVENTIL) (2.5 MG/3ML) 0.083% nebulizer solution Inhale 3 mLs (2.5 mg total) into the lungs every 4 (four) hours as needed. 02/15/2024 documented as of this encounter Progress Notes * Saige Reyes MD - 05/25/2024 6:54 PM CDT Request for Documentation Clarification Raza Thomas ; VISIT [id number] Query Response Sent: 06/05/24 07:33 CDT From: Saige Reyes MD Query question: Based on medical judgment and consideration of these clinical indicators, the following condition was evaluated, monitored and/or treated during this episode of care Provider response: Hypomagnesemia, which required evaluation, monitoring, or treatment Original Query Sent: 06/02/24 10:42 CDT From: Dorothea Allison To: Saige Reyes MD By submitting this query, we are seeking further clarification of documentation to accurately reflect all conditions that you monitored, evaluated, treated, or that may have extended the hospitalization or utilization of additional resources for care. Chart review has indicated your clinical opinion is needed regarding the following diagnosis. Your response serves as your authenticated entry to the Legal Medical Record. The fact that a question isasked does not imply that any particular diagnosis is desired or expected. Based on medical judgment and consideration of these clinical indicators, the following condition was evaluated, monitored and/or treated during this episode of care * Hypomagnesemia, which required evaluation, monitoring, or treatment * Hypomagnesemia, without clinical significance * Other Clinical Information 63yr old admitted after episode at PCP with altered mental status, diaphoresis, and lethargy.. PMH:DM. (per H&P). - H&P: Assessment/Plan: Near syncope, s/p stroke January 2024, Aspiration precaution -Peg tube -Tube feeds. - (8-9) Hospitalist progress note: Subjective: No more lightheadedness or dizziness. - (8-9) Magnesium 1.6. - (8-10) Magnesium 1.9. - (8-11) Magnesium 1.8. - Received: IV Magnesium sulfate (05/23), continued daily lag monitoring. * Viky Motley, SURVEILLANCE SENSOR OPERATOR - 05/25/2024 6:52 PM CDTSummary: [facility] 05/25/241851 Forms First Important Message from Medicare ([facility]) Signed Copy delivered * Brooke Mendoza DO - 05/25/2024 12:07 PM CDTSummary: plan of care This morning, I saw the patient experiencing AMS. The patient was laying in the bed, eyes open, wasnot responding to questions or stimulus. Sluggish pupil response. Was not moving his Left hand. I spoke with the sister and she said that at baseline, the patient is able to move his hand and communicates. The patient has weakness on his right side since his stroke in January. Tele neurologist saw the patient and recommended TNK and discussed the risks/benefits of the medications. I had an extensive conversation with ICU doctor and Pharmacy about the medication and felt that therisk for hemorrhagic brain bleed is higher with minimal recovery. Critical Care team did not recommend this treatment option as it was a high risk. I spoke with Jenn about this and discussed the risk of TNK. Discussed that if we give it, he is marlene risk for brain bleed. The other option would be to send him to [facility] for [facility]. I relayed all of our concerns but also neurology recommendations. Jenn understood the risk and understood both options. She was able to repeat both options prior tomaking the decision. She wanted the safest option for mr. Solorio. She understood that we still needed to get slu acceptance and wait for a bed and transport to slu. She agreed with not doing the TNK because of the risk of bleeding. I called Dr. Coppola from [facility], and discussed the case. He agrees the patient needs higher level of care and accepted the transfer. Dr. Coppola also mentioned that seizures could be in the differential. Patient was transferred to the ICU * Brooke Mendoza DO - 05/25/2024 10:49 AM CDT Hospitalist Daily Progress Note Subjective Code stroke activated During my rounds, nursing at beside was not able to get a meaningful response form patient. He was laying on his bed, eyes open but not responding to sternal rub, pain. Neuro exam very limited. Sluggish eye response. Objective Filed Vitals: 05/25/24 0020 05/25/24 0248 05/25/24 0741 05/25/24 1019 BP: 125/81 120/74 128/73 119/87 Pulse: 77 80 72 78 Resp: Temp: 98.4 ??F (36.9 ??C) 97.3 ??F (36.3 ??C) 98.2 ??F (36.8 ??C) TempSrc: Oral Oral Oral SpO2: 97% 96% 98% 99% Weight: 120.2 kg (264 lb 15.9 oz) Height: Physical Exam: -GENERAL: Aox0 -HEAD: Normocephalic, Atraumatic -EYES: Extraocular movements intact -LUNGS: Effort normal, Clear to auscultation bilaterally -CVS: Regular rate and rhythm, S1 and S2 normal -ABDOMEN: Soft, Non tender, Non distended -EXT: No edema -NEURO: not responsive, right sided hand tremor. Unable to move left hand. Does answering questions -SKIN: No significant rashes Intake/Output 24H Total: Intake/Output Summary (Last 24 hours) at 05/25/2024 1049 Last data filed at 05/25/2024 0400 Gross per 24 hour Intake 3084 ml Output -- Net 3084 ml Medication aspirin 81 mg Per G Tube Daily clopidogrel 75 mg Per G Tube Daily heparin (porcine) 5,000 Units Subcutaneous 2 times per day insulin lispro 0-16 Units Subcutaneous TID AC And insulin lispro 0-8 Units Subcutaneous Nightly at bedtime sodium chloride 0.9% 500 mL Intravenous Once TF diabetic w/Fiber 75 mL/hr (05/25/24 0400) PRN Meds: acetaminophen, HYDROcodone-acetaminophen, naLOXone, ondansetron, polyethylene glycol, QUEtiapine Labs: Recent Labs Lab 05/22/24 1825 05/23/24 0632 05/24/24 0816 05/25/24 0714 05/25/24 1028 WBC 10.48 7.42 6.54 6.02 6.45 RBC 4.10* 4.00* 3.92* 3.96* 4.17* HGB 11.1* 10.4* 10.3* 10.5* 11.0* HCT 35.6* 34.4* 33.4* 33.4* 35.2* MCV 86.8 86.0 85.2 84.3 84.4 MCH 27.1 26.0* 26.3* 26.5* 26.4* MCHC 31.2* 30.2* 30.8* 31.4* 31.3* PLT 288 268 268 270 282 RDW 14.6* 14.6* 14.6* 14.5 14.6* MPV 9.6 9.4 9.2* 9.2* 9.7 PERNEU 62.5 58.0 47.2 48.7 47.6 PERLYM 28.7 32.6 42.7 40.4 42.3 PERMON 7.2 7.5 7.8 8.1 7.9 NEUC 6.56 4.30 3.09 2.93 3.07 LYMC 3.01 2.42 2.79 2.43 2.73 MONOC 0.75 0.56 0.51 0.49 0.51 EOSC 0.10 0.10 0.11 0.13 0.11 BASOC 0.03 0.02 0.02 0.02 0.02 DTYPE AUTOMATED DIFFERENTIAL AUTOMATED DIFFERENTIAL AUTOMATED DIFFERENTIAL AUTOMATED DIFFERENTIAL AUTOMATED DIFFERENTIAL Recent Labs Lab 05/22/24 1825 05/23/24 0632 05/24/24 0816 05/25/24 0714 NA 136 136 135* 135* K 4.1 3.7 3.6 3.6 CL 102 105 103 102 CO2 26.9 26.4 29.5 27.4 AGAP 7.1 4.6* 2.5* 5.6 BUN 21* 22* 23* 19* CR 0.94 0.83 0.88 0.82 BUNCREATININ 22.4 26.4* 26.1* 23.2 GLU 115* 97 118* 143* CA 9.8 9.2 9.7 9.4 TP 8.6* 7.6 8.1 7.9 ALB 3.0* 2.8* 3.0* 2.8* TBIL 0.3 0.4 0.3 0.3 ALKP 65 62 64 68 AST 11* 10* 10* 12* ALT 25 22 21 22 Recent Labs Lab 05/22/24 182 HGBA1C 7.4* Recent Labs Lab 05/22/241824 INR 1.1 PTT 34.4 Recent Labs Lab 05/22/24 1825 05/22/24 2020 TROP 10 10 Recent Labs Lab 05/22/241824 LACTICACID 1.3 No results for input(s): PH , PCO2 , PO2 , [id number] , BICARBWB , BASEDEFICIT , BASEEXCESS in the last 168 hours. No results found for this or any previous visit. X-Ray No results found. Assessment/Plan: AMS -code stroke activated on 05/25 - tele neurology consulted - Stroke work up in process - infectious work up pending - UA and CXR ordered - blood glucose normal - Electrolytes WNL Near Syncope ECHO reviewed CT head reviewed MRI pending Cardio consult, appreciate recs Spot eeg ordered Elevated Ddimer CTA neg for PE No SOB complaints, did have hypoxia noted earlier in admission Non ambulatory Chronic since stroke in January 2024 Will need a hospital bed set up at home likely Will need home therapy set up as well CM consulted for resources at home Aspiration precaution Peg tube Tube feeds Consult dietary in am for feedings Fall on 05[place]17 [place], [place] family to stay with sister who is POA PT/OT consulted CAD S/p CABG x3 CVA January 2024 T2DM ACHS SSI A1c 7.4 HTN Brooke Mendoza DO 05/25/2024 10:49 AM * Sandra Lee RN - 05/25/2024 2:46 AM CDT Problem: Pain Goal: Patient's pain/discomfort is manageable Description: Assess and monitor patient's pain using appropriate pain scale. Collaborate with interdisciplinary team and initiate plan and interventions as ordered. Re-assess patient's pain level 30 - 60 minutes after pain management intervention. Outcome: Met This Shift Problem: Safety Goal: Patient will be injury free during hospitalization Description: Assess and monitor vitals signs, neurological status including level of consciousness and orientation. Assess patient's risk for falls and implement fall prevention plan of care and interventions per hospital policy. Ensure arm band on, uncluttered walking paths in room, adequate room lighting, call light and overbed table within reach, bed in low position, wheels locked, side rails up per policy, and non-skid footwear provided. Outcome: Met This Shift Problem: Daily Care Goal: Daily care needs are met Description: Assess and monitor ability to perform self care and identify potential discharge needs. Outcome: Met This Shift Problem: Psychosocial Needs Goal: Demonstrates ability to cope with hospitalization/illness Description: Assess and monitor patients ability to cope with his/her illness. Outcome: Met This Shift Goal: Collaborate with patient/family/caregiver to identify patient specific goals for this hospitalization Outcome: Met This Shift Problem: Discharge Barriers Goal: Patient's discharge needs are met Description: Collaborate with interdisciplinary team and initiate plans and interventions as needed. Outcome: Met This Shift Problem: Pain - Acute Goal: Achieve acceptable pain level Outcome: Met This Shift * Brooke Mendoza DO - 05/24/2024 7:25 PM CDT Hospitalist Daily Progress Note Subjective No complaints. Objective Filed Vitals: 05/24/24 0752 05/24/24 1106 05/24/24 1454 05/24/24 1547 BP: 126/83 104/76 114/76 115/69 Pulse: 77 73 73 72 Resp: 22 22 21 Temp: 98.1 ??F (36.7 ??C) 97.7 ??F (36.5 ??C) 98.2 ??F (36.8 ??C) 97.3 ??F (36.3 ??C) TempSrc: Oral Oral Axillary SpO2: 96% 97% 96% 97% Weight: Height: Physical Exam: -GENERAL: No acute distress, Well nourished -HEAD: Normocephalic, Atraumatic -EYES: Extraocular movements intact -LUNGS: Effort normal, Clear to auscultation bilaterally, No wheezes, No crackles, No ronchi -CVS: Regular rate and rhythm, S1 and S2 normal -ABDOMEN: Soft, Non tender, Non distended -EXT: No edema -NEURO: Awake, alert, oriented, No gross neuro deficits -SKIN: No significant rashes Intake/Output 24H Total: Intake/Output Summary (Last 24 hours) at 05/24/20241924 Last data filed at 05/23/2024 2229 Gross per 24 hour Intake -- Output 450 ml Net -450 ml Medication aspirin 81 mg Oral Daily clopidogrel 75 mg Oral Daily heparin (porcine) 5,000 Units Subcutaneous 2 times per day insulin lispro 0-16 Units Subcutaneous TID AC And insulin lispro 0-8 Units Subcutaneous Nightly at bedtime sodium chloride 0.9% 500 mL Intravenous Once TF diabetic w/Fiber 75 mL/hr (05/24/24 1355) PRN Meds: acetaminophen, HYDROcodone-acetaminophen, naLOXone, ondansetron, polyethylene glycol, QUEtiapine Labs: Recent Labs Lab 05/22/24182405/23/24 0632 05/24/24 0816 WBC 10.48 7.42 6.54 RBC 4.10* 4.00* 3.92* HGB 11.1* 10.4* 10.3* HCT 35.6* 34.4* 33.4* MCV 86.8 86.0 85.2 MCH 27.1 26.0* 26.3* MCHC 31.2* 30.2* 30.8* PLT 288 268 268 RDW 14.6* 14.6* 14.6* MPV 9.6 9.4 9.2* PERNEU 62.5 58.0 47.2 PERLYM 28.7 32.6 42.7 PERMON 7.2 7.5 7.8 NEUC 6.56 4.30 3.09 LYMC 3.01 2.42 2.79 MONOC 0.75 0.56 0.51 EOSC 0.10 0.10 0.11 BASOC 0.03 0.02 0.02 DTYPE AUTOMATED DIFFERENTIAL AUTOMATED DIFFERENTIAL AUTOMATED DIFFERENTIAL Recent Labs Lab 05/22/24182405/23/24 0632 05/24/24 0816 NA 136 136 135* K 4.1 3.7 3.6 CL 102 105 103 CO2 26.9 26.4 29.5 AGAP 7.1 4.6* 2.5* BUN 21* 22* 23* CR 0.94 0.83 0.88 BUNCREATININ 22.4 26.4* 26.1* GLU 115* 97 118* CA 9.8 9.2 9.7 TP 8.6* 7.6 8.1 ALB 3.0* 2.8* 3.0* TBIL 0.3 0.4 0.3 ALKP 65 62 64 AST 11* 10* 10* ALT 25 22 21 Recent Labs Lab 05/22/24 182 HGBA1C 7.4* Recent Labs Lab 05/22/24 182 INR 1.1 PTT 34.4 Recent Labs Lab 05/22/24 1825 05/22/24 2020 TROP 10 10 Recent Labs Lab 05/22/24 182 LACTICACID 1.3 No results for input(s): PH , PCO2 , PO2 , [id number] , BICARBWB , BASEDEFICIT , BASEEXCESS in the last 168 hours. No results found for this or any previous visit. X-Ray No results found. Assessment/Plan: Near Syncope ECHO CT MRI Cardio consult Spot eeg Elevated Ddimer CTA neg for PE No SOB complaints, did have hypoxia noted earlier in admission Non ambulatory Chronic since stroke in January 2024 Will need a hospital bed set up at home likely Will need home therapy set up as well CM consulted for resources at home Aspiration precaution Peg tube Tube feeds Consult dietary in am for feedings Fall on 05[place]17 [place], [place] home [place] family to stay with sister who is POA PT/OT consulted CAD S/p CABG x3 CVA January 2024 T2DM ACHS SSI A1c 7.4 HTN Brooke Mendoza DO 05/24/2024 7:25 PM * Magali Hand RN - 05/24/2024 6:15 PM CDT Problem: Pain Goal: Patient's pain/discomfort is manageable Description: Assess and monitor patient's pain using appropriate pain scale. Collaborate with interdisciplinary team and initiate plan and interventions as ordered. Re-assess patient's pain level 30 - 60 minutes after pain management intervention. 05/24/20241814 by Magali Hand RN Outcome: Progressing 05/24/20241814 by Magali Hand RN Outcome: Progressing Problem: Safety Goal: Patient will be injury free during hospitalization Description: Assess and monitor vitals signs, neurological status including level of consciousness and orientation. Assess patient's risk for falls and implement fall prevention plan of care and interventions per hospital policy. Ensure arm band on, uncluttered walking paths in room, adequate room lighting, call light and overbed table within reach, bed in low position, wheels locked, side rails up per policy, and non-skid footwear provided. 05/24/20241814 by Magali Hand RN Outcome: Progressing 05/24/20241814 by Magali Hand RN Outcome: Progressing Problem: Daily Care Goal: Daily care needs are met Description: Assess and monitor ability to perform self care and identify potential discharge needs. 05/24/20241814 by Magali Hand RN Outcome: Progressing 05/24/20241814 by Magali Hand RN Outcome: Progressing Problem: Psychosocial Needs Goal: Demonstrates ability to cope with hospitalization/illness Description: Assess and monitor patients ability to cope with his/her illness. 05/24/20241814 by Magali Hand RN Outcome: Progressing 05/24/20241814 by Magali Hand RN Outcome: Progressing Goal: Collaborate with patient/family/caregiver to identify patient specific goals for this hospitalization 05/24/20241814 by Magali Hand RN Outcome: Progressing 05/24/20241814 by Magali Hand RN Outcome: Progressing Problem: Discharge Barriers Goal: Patient's discharge needs are met Description: Collaborate with interdisciplinary team and initiate plans and interventions as needed. 05/24/20241814 by Magali Hand RN Outcome: Progressing 05/24/20241814 by Magali Hand RN Outcome: Progressing Problem: Pain - Acute Goal: Achieve acceptable pain level 05/24/20241814 by Magali Hand RN Outcome: Progressing 05/24/20241814 by Magali Hand RN Outcome: Progressing * Saige Reyes MD - 05/23/2024 7:29 PM CDT Hospitalist Daily Progress Note Subjective Pt seen and examined, resting in bed. No new c/o, no more lightheadedness or dizziness. Tolerating diet. Objective Filed Vitals: 05/23/24 0310 05/23/24 0722 05/23/24 1157 05/23/24 1551 BP: (!) 134/94 131/83 136/86 135/83 Pulse: 92 83 81 71 Resp: 18 Temp: 97.7 ??F (36.5 ??C) 97.9 ??F (36.6 ??C) 97.7 ??F (36.5 ??C) TempSrc: Oral Oral Oral SpO2: 100% 94% 95% 99% Weight: 117.9 kg (259 lb 14.8 oz) Height: Physical Exam: Physical Exam GEN: In no acute distress. Breathing comfortably on room air. HEENT: Clear conjunctiva. Mucous membranes moist. RESPIRATORY: Effort normal. CTA, no wheezes or crackles. CVS: RRR, no MRG. ABD: Soft, Nontender. Peg tube EXT: No edema. MUSCULOSKELETAL: Limited ROM SKIN: Warm, dry. No rashes or ulcers. PSYCH: Appropriate affect NEURO: Alert and oriented Intake/Output 24H Total: Intake/Output Summary (Last 24 hours) at 05/23/20241928 Last data filed at 05/23/2024 1300 Gross per 24 hour Intake -- Output 400 ml Net -400 ml Medication heparin (porcine) 5,000 Units Subcutaneous 2 times per day insulin lispro 0-16 Units Subcutaneous TID AC And insulin lispro 0-8 Units Subcutaneous Nightly at bedtime sodium chloride 0.9% 500 mL Intravenous Once TF diabetic w/Fiber 50 mL/hr (05/23/24 1459) PRN Meds: acetaminophen, HYDROcodone-acetaminophen, naLOXone, ondansetron, polyethylene glycol Labs: noted X-Ray XR CHEST PORTABLE Result Date: 05/22/2024 Examination: Chest x-ray 1 view Exam date/time: 05/22/2024 5:10 PM Reason For Exam: Near syncope Comparison: No previous. Technique: Upright AP view of the chest demonstrated. Findings: Heart size is prominent. Postoperative changes with wires along the sternum. Postsurgical clips are seen superimposed to the upper chest centrally along the superior margin of the aortic arch. In the lung parenchyma no focal or acute infiltrates. No pneumothorax or effusion. No acute bony abnormalities. Monitoring devices. =====IMPRESSION:===== No acute or focal infiltrates. Prominent heart size. Postoperative findings. Ordered By: MIKEL SIMPSON Electronically Signed By: Kodak Govea MD on 45:42 PM Interpreted By: Kodak Govea MD, 05/22/2024 5:[address] THORACIC SPINE WO CONTRAST Result Date: 05/17/2024 EXAM: CT THORACIC SPINE WO CONTRAST INDICATION: W19.XXXA: Unspecified fall, initial encounter, backpain TECHNIQUE: Helically acquired contiguous axial sections through [...] JR, MD on 05/17/2024 1:[address] LUMBAR SPINE NON CONTRAST Result Date: 05/17/2024 PROCEDURE: CT LUMBAR SPINE WO CONTRAST [...] JR, MD on 05/17/2024 1:[address] CERVICAL SPINE WO CONTRAST Result Date: 05/17/2024 EXAM: CT Cervical Spine Without Contrast INDICATION: W19.XXXA: Unspecified fall, initial encounter,neck injury/neck pain COMPARISON: none available TECHNIQUE: Helically [...] osseous destruction in the cervical spine > InterpretingProvider: Rony Soliman JR, MD on 05/17/2024 1:[address] HEAD WO CONTRAST Result Date: 05/17/2024 EXAM: CT scan of the brain without contrast TECHNIQUE: Axial images through the brain without contrast. [employer] software was utilized to analyze for intracranial hemorrhage. One or more of the following CT dose reduction techniques were utilized: - Automated exposure control (AEC) - Adjustment of mAand/or kV according to patient size - Use [...] PM XR Shoulder Right 2Vw or More Result Date: 05/17/2024 PROCEDURE: XR SHOULDER RIGHT 2VW OR MORE DATE/TIME OF EXAM: 05/17/2024 10:48 AM CLINICAL INFORMATION:None relevant/not provided if blank. Indication: W19.XXXA: Unspecified fall, initial encounter Additional History: COMPARISON: None. FINDINGS: 3 views of the right shoulder are submitted. No fractureor dislocation is seen. There is no radiopaque foreign body within the soft tissues. Mild arthropathy is present at the acromioclavicular joint. IMPRESSION: No acute bony abnormality seen involving the right shoulder > Interpreting Provider:Antonella Avila MD on 05/17/2024 10:51 AM XR Pelvis 1 or 2Vw Result Date: 05/17/2024 AP pelvis Indication: Pelvic pain Findings: There is no displaced fracture or dislocation. There isno osseous destruction. There is joint space narrowing and acetabular subchondral sclerosis at bilateral hips. > Interpreting Provider: Rony Soliman JR, MD on 05/17/2024 10:51 AM XR CHEST 1VW PORTABLE Result Date: 05/17/2024 PROCEDURE: XR CHEST 1VW PORTABLE, DATE/TIME OF EXAM: 05/17/2024 10:47 AM, LOCATION [facility] INDICATION: W19.XXXA: Unspecified fall, initial encounter ADDITIONAL CLINICAL INFORMATION:Ordering Provider Reason For Exam: Technologist Note: Additional: COMPARISON: April 08, 2024 FINDINGS: Single AP view of the chest shows the lungs to be expanded and clear. Cardiac size is stable. Sternotomy wires are present. No pneumothorax is seen. Pulmonary vasculature does not appear congested. IMPRESSION: There is no acute-appearing cardiac or pulmonary abnormality > Interpreting Provider: Antonella Avila MD on 05/17/2024 10:50 AM Assessment/Plan: Near syncope Need for case management follow-up Near Syncope Echo ordered May need cardiology consulted Orthostatic VS not possible due to physical condition Neuro checks EKG NSR PT/OT evaluation Fall precautions Troponin 10>[address] head before they will take him home - pending Elevated Ddimer CTA neg for PE No SOB complaints, did have hypoxia noted earlier in admission Non ambulatory Chronic since stroke in January 2024 Will need a hospital bed set up at home likely Will need home therapy set up as well CM consulted for resources at home Aspiration precaution Peg tube Tube feeds Consult dietary in am for feedings Fall on 05/17 [place], taken home by family to stay with sister who is POA PT/OT consulted CAD S/p CABG x3 CVA January 2024 T2DM ACHS SSI A1c 7.4 HTN Home medication needs verified -DVT prophylaxis: heparin -IVF: SL -Diet: cardiac, carb -Level of care: med surg -Anticipated disposition at discharge: home -PCP: Sean Kyle MD Dispo: DC home w home health pending CT head SAIGE REYES MD 05/23/2024 7:29 PM * Richa Mendoza RN - 05/23/2024 3:28 PM CDT 05/23/24 1527 Discharge Planning Living Arrangements Family members Support Systems Family members;Home Health Care Type of Residence Private residence Assistance Needed Yes Discharge assistance Home Health Patient expects to be discharged to: Home with home health care Insurance Authorization needed No Does the patient need discharge transport arranged? Yes Type of transportation needed? Ambulance Has discharge transport been arranged? Yes What day is the transport expected? 05/23/24 What time is the transport expected? 1700 IV Infusion at discharge No DME Needed at Discharge No Discharge Planning Who is requesting discharge planning? Provider * Richa Mendoza RN - 05/23/2024 1:53 PM CDT 05/23/24 1352 Interdisciplinary Group Conference Team Members Present Physician;Case/Care management;Nursing;Pharmacy;Community Worker Physician present for group conference DR REYES Barriers to Discharge Barriers Mobility Progression Needs;Test Pending Test Pending follow up ECHO PENDING Mobility Progression Needs follow up PT/OT TO EVAL Patient expects to be discharged to: Home with home health care * Bianca Hsu RD - 05/23/2024 1:21 PM CDT CLINICAL DIETITIAN ASSESSMENT NUTRITION ASSESSMENT Past Medical History: Diagnosis Date Coronary artery disease Diabetes mellitus ([facility]/HCC HHS/HCC) Hypertension Stroke (CMS/HCC HHS/HCC) Initial History (05/23/2024): Registered Dietitian (RD) completing an initial assessment secondary to pt with NPO status and PEG tube. Patient is a 63-year-old male admitted secondary to Weakness [R53.1] Near syncope [R55] Need for case management follow-up [Z09]. Pt presented with weakness, near syncopal episode at home. Hx of stroke in January 2024 and receives PEG feedings at home. Weight history (05/23/2024): Jenn (sister) reports a usual body weight between 265-285 lbs. Current weight 259 lbs. Possible 26 lb weight loss, states he may have weighed that much prior to rehab in March. Possible significant weight loss for time frame (9.1%). No weight hx in EHR to compare to. Diet history (05/23/2024): Pt was able to consume a pureed diet until most recent [employer] eval where he was deemed unsafe. Receives continuous home tube feeding of Glucerna 1.2 at 75 mL/hr with 150 mL every 4 hour free water flushes. Home Tube feeding regimen to provide 2160 calories, 108 grams protein, 206 grams CHO, and 2358 mL total fluid (x 24 hours). Food allergies/intolerances: NKFA per EHR Cultural/Anglican food preferences: None reported in EHR Food Insecurity: Patient Unable To Answer (05/23/2024) Hunger Vital Sign Worried About Running Out of Food in the Last Year: Patient unable to answer Ran Out of Food in the Last Year: Patient unable to answer Cardiorespiratory: in room air; MAP > 65 mmHg over the past 24 hours Neuro: Alert/oriented per EHR Edema: no edema noted per EHR GI: abdomen WDL with positive bowel sounds per administrative director; last BM documented on 05/22/24 Chewing/swallowing problems: Yes; NPO with TF Skin: no nutrition-related concerns noted at this time Nutrition-focused physical findings: Patient appears well-nourished with no signs of muscle or fat wasting. Labs: Reviewed with the following abnormalities identified: Mg depleted, suggest to replete prior to beginning tube feedings- ordered per DEC. Recent Labs Lab 05/22/24 2334 05/23/24 0538 05/23/24 1031 GLUCOSEPOC 85 102* 99 Recent Labs Lab 05/22/24 1825 05/23/24 0632 NA 136 136 K 4.1 3.7 MAGNESIUM -- 1.6* BUN 21* 22* CR 0.94 0.83 GFREST 90* >90 GLU 115* 97 HGB A1C Date Value Ref Range Status 05/22/2024 7.4 (H) <5.7 % Final Comment: ADA GUIDELINES 2010 5.7 TO 6.4% INCREASED RISK OF DIABETES > OR = 6.5% CONSISTENT WITH DIABETES Hemoglobin A1c Date Value Ref Range Status 01/23/2024 6.1 (H) <5.7 % Final Meds: Reviewed. No adjustments to TF indicated at this time. heparin (porcine) 5,000 Units Subcutaneous 2 times per day insulin lispro 0-16 Units Subcutaneous TID AC And insulin lispro 0-8 Units Subcutaneous Nightly at bedtime magnesium sulfate 2 g Intravenous Once sodium chloride 0.9% 500 mL Intravenous Once Anthropometrics: Admission weight: 120.2 kg (Date: 05/22/24; Method: Stated) Last 5 Recorded Weights 05/22/24 1605 05/23/24 0310 Weight: 120.2 kg (265 lb) 117.9 kg (259 lb 14.8 oz) Weight status: Weight slightly down, however admission weight stated. Height: 193 cm Actual Body Weight (ABW): 117.9 kg [place] Body Weight (IBW): 91.6 kg (ABW is 129% of IBW) Body Mass Index (BMI): 31.64 kg/m?? (Obesity Class I) Estimated Nutrient Needs: Calories: 2065 kcal/day based on Menard-St Jeor Protein: 137-183 gm/day based on 1.5-2 gm/kg, using IBW Carbohydrate: 232 gm/day based on 45% of total kcal from carbohydrate Fluid: 1500 mL/day based on minimum intake recommendation for older adults Current diet order: No diet orders on file Current diet appropriate? Yes; NPO with PEG feedings at home Current intake sufficient to meet nutritional needs? No. Fluid intake appears adequate for hydration. Pain affecting PO intake? N/A Nutrition Education: unable to assess education needs at this time NUTRITION DIAGNOSIS Inadequate EN infusion related to scheduled infusion stopped as evidenced by patient's home tube feeding stopped on admission, remains NPO. Nutrition risk: high NUTRITION INTERVENTION Nutrition prescription: Tube Feeding: Glucerna 1.2 KESHA via G-tube. Continuous infusion at 75 mL/hr. Protein Modular: Administer 1 packet(s) Prosource BID to assist with meeting estimated protein requirement. Free Water Flushes: 150 mL every 4 hours Nutrient provision from recommended TF (based on 22 hour infusion and dosing weight of 117.9 kg): KESHA: 2100 kcal/day (18 kcal/kg/day) PRO: 129 gm/day (1 gm/kg/day) CHO: 189 gm/day (36% of kcal provided) FLUID: 2237 mL/day free water from TF and free water flushes Recommended TF meets 101% estimated kcal needs and 94% estimated protein needs with free water adequate for hydration. Plan: 1. Initiate continuous TF with Glucerna 1.2 KESHA via G-tube at 50 mL/hr and advance by 10 mL/hr every 4 hours to goal rate of 75 mL/hr. 2. Free water flush: 150 mL every 4 hours. 3. Provide 1 packet of Prosource BID via G-tube with free water flush. 4. Labs: BMP, Mg and Phos at least three times weekly. Replete electrolytes as indicated. 5. Weigh patient at least twice weekly. Discharge nutrition plan: Discharge needs assessed. Will provide/update discharge instructions as needed. MONITORING/EVALUATION 05/23/2024 Goals: 1. TF will be infusing per RD recommendation at follow up. 2. Weight stable within 2% of current weight (117.9 kg) at follow up. BIANCA HSU RD, LDN * Bianca Gomez, OTR - 05/23/2024 11:45 AM CDT 05/23/24 1111 Therapy Visit OT Evaluation Completed on 05/23/24 Reason for admission near syncope Comorbidities Relevant to OT CVA/residual deficits, CAD, DM, HTN, asthma, HLD, CABG Ordering Provider Supa Verified Two Patient Identifiers Yes Patient consents to therapy Yes Acute Inpatient OT Time Calculation OT Start Time 1038 OT Stop Time 1110 OT Time Calculation (min) 32 min Precautions Weight Bearing Status Full weight bearing General Precautions Bed Alarm;Chair Alarm;Fall Risk;Monitor Vitals (Beltran) PPE Used Gloves Instructed on Precautions Yes;Needs reinforcement and education Skin Integrity no issues noted Subjective Subjective RM 411 OT orders received. EMR reviewed. Rn aware. Pt agreeable Home Living Type of Home House Home Layout Able to live on main level with bedroom/bathroom Home Equipment Wheelchair-manual;Hospital bed Home Living Comments questionable historian, so full home living was unable to be obtained Prior Function Level of [place] Needs assistance with ADLs;Needs assistance with homemaking;Needs assistance with functional transfers;Needs assistance with ambulation Device used at baseline Wheelchair-manual Baseline Ambulation Distance/Assistance non-ambulatory Fall History Yes Reason for fall unclear Most recent fall about a week ago, 05/17/24 Lives With Family Receives Help From Family ADL Assistance Needs assistance Homemaking Assistance Needs assistance PLOF Comments sister and brother inlaw assist/unclear Pain Pain No Activity Tolerance Endurance Tolerates 10 - 20 min activity with rests Endurance Quality Poor Limiting Factors to Endurance Acute deconditioning;Weakness;Fatigue Vision - Complex Assessment Head Position Head tilt Tracking (limited tracking twd L, but able to track with cues) Inattention/Neglect Cues to attend to left side of body;Cues to attend left visual field Scanning Pattern Disorganized Additional Comments able to bring head to midline with VCs Cognition Overall Cognitive Status Impaired Arousal/Alertness Delayed responses to stimuli Attention Span Difficulty attending to directions Memory Decreased short term memory;Decreased recall of recent events;Decreased recall of biographical information Orientation Level Oriented to person Following Commands Follows one step commands with repetition Safety Judgment Decreased awareness of need for assistance Deficits Decreased awareness of deficits Problem Solving Assistance required to generate solutions Motor Planning Cues to use objects appropriately Initiation Cues to initiate tasks Cognition Complex Affect Flat Overall Extremity Assessment Upper Extremity A/AROM UE'S WFLS, noted active movements with strength 3-/5 Hand Function Gross Grasp Right;Left;Functional (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 assurance advisor strength is strong jimbo hands) Coordination Impaired Hand Comment not utilizing Ue s to assist with ADLS ADL Additional Comments Pt is max to total assistance with all ADLS Bed Mobility Supine to Sit Max assist to right;Assist of 2 Functional Transfers Bed to Chair Assist of 2;Total assist Other (Comment) Squat pivot, with michelle pad in the recliner Balance Sitting - Static Max Assist;Support of both upper extremities Sitting - Dynamic Max Assist;Assist of 2 Persons;Support of both upper extremities Standing - Static Assist of 2 Persons Proprioception Proprioception Partial deficits in the LUE Assessment Occupational Profile and History Complexity High (Extensive) Performance Skills Deficits Bathing/showering;Dressing;Functional mobility;Feeding;Personal hygieneand grooming;Safety and emergency maintenance;Social participation;Toileting Performance Deficit Level High (5 or more deficits) Clinical Decision Making High (max modifications) Complexity Level of Evaluation High Prognosis Fair;Guarded OT Assess/Eval Other (Comment) Pt is a 63 y/o male admitted with syncope, recent CVA. Noted cog deficits, delayed processing, Noted active movements in jimbo Ues, R is stronger than L, Noted premorbid visual spatial deficits with heavy leaning twds the R/head tilt. Pt is max to total assistance with all ADLS. Pt is not safe to return home upon DC. Pt would benefit from continue skilled OT services to increase indep with ADLS. Patient/Family Training Other (Comment) questionable insight, but receptive Discharge Recommendation OT Recommendation OT at detention facility;24 hour supervision/assist OT Equipment Recommended To Be Determined Plan OT Treatment/Intervention Self-care training;Therapeutic exercises;Therapeutic activities;Cognitiveskills development;Patient/family training;Functional activity;Safety OT Frequency 3 times/week OT plan for next session ADLS If this is the last treatment note, it will serve as the discharge summary Yes End of Session End of Session Safety Chair alarm set/activated;Call light within reach;Nursing aware of session Interdisciplinary Collaboration RN, PT [facility] AM-PAC Daily Activity Please check the box that reflects your (the patient???s) best answer to each question Unable (1) ALot (2) A Little (3) None (4) 1. Putting on and taking off regular lower body clothing? 2 2. Bathing (including washing, rinsing, drying)? 2 3. Toileting, which includes toilet, bedpan, or urinal? 2 4. Putting on and taking off regular upper body clothing? 2 5. Taking care of personal grooming such as brushing teeth? 2 6. Eating meals? 2 Clinicians may find the following helpful in selecting responses: 1. Unable = Total/Dependent Assist 2. A Lot = Maximum/Moderate Assist 3. A Little = Minimum/Contact Guard Assist/Supervision 4. None = Modified [place]/Independent Raw score=12 Functional impairments=67% * Ginette Caldwell, PT - 05/23/2024 11:15 AM CDT 05/23/24 0700 How much difficulty does the patient currently have... Turning over in bed (including adjusting bedclothes, sheets, and blankets)? 2 (A Lot) Sitting down and standing up from a chair with arms (e.g., wheelchair, bedside commode, etc.) 1 (Unable) Moving from lying on back to sitting on the side of the bed? 2 (A Lot) How much help from another person does the patient currently need... Moving to and from a bed to a chair (including a wheelchair)? 1 (Total) Walking in a hospital room? 1 (Total) Climbing 3-5 steps with a railing? 1 (Total) Basic Mobility Score Score out 8 06/07 = 86% impairment of basic mobility * Ginette Caldwell PT - 05/23/2024 11:15 AM CDT 05/23/24 1000 Therapy Visit Ordering Provider Supa PT Evaluation Completed on 05/23/24 Subjective Room 411: RN cleared pt for PT eval. Pt is in bed, agreeable. Reason for admission near syncope Relevant Comorbidities/ Personal Factors to PT HTN, DM, CVA, CAD Verified Two Patient Identifiers Yes Patient consents to therapy Yes Acute Inpatient PT Time Calculation PT Start Time 1038 PT Stop Time 1110 PT Time Calculation (min) 32 min Precautions Weight Bearing Status Full weight bearing General Precautions Bed Alarm;Chair Alarm;Fall Risk (hemiplegia) PPE Used Gloves;Face mask Instructed on Precautions Yes;Verbalizes understanding Home Living Type of Home House Home Layout Able to live on main level with bedroom/bathroom Home Equipment Wheelchair-manual Home Living Comments questionable historian, so full home living was unable to be obtained Prior Function Level of [place] Needs assistance with ADLs;Needs assistance with homemaking;Needs assistance with functional transfers;Needs assistance with ambulation Device used at baseline Wheelchair-manual Fall History Yes Reason for fall unclear Most recent fall about a week ago How many falls in the past year? unclear Lives With Family (sister) Receives Help From Family PLOF Comments questionable historian, so full PLOF unable to be obtained Pain Pain Patient does not demonstrate pain behaviors Activity Tolerance Endurance Tolerates < 10 min activity, no significant change in vital signs Endurance Quality Poor Limiting Factors to Endurance Acute deconditioning;Fatigue;Weakness Cognition Overall Cognitive Status Impaired Orientation Level Oriented to person;Disoriented to place;Disoriented to time;Disoriented to situation (knew he was in a hospital) Overall Extremity Assessment Lower Extremity fair to poor strength bilateral LEs Bed Mobility Supine to Sit Max assist to right;Assist of 2 TRANSFERS Squat Pivot Transfers Total assist;Assist of 2 Balance Sitting - Static Max Assist;Support of both upper extremities Sitting - Dynamic Max Assist;Assist of 2 Persons;Support of both upper extremities Other (Comment) heavy R lateral lean in sitting Assessment Personal Factors/Comorbidities Impacting Care 3-4 personal factors/comorbidities Examination of Body Systems High (at least 4 Elements) Objectives of Body Systems Impaired bed mobility;Impaired transfers;Impaired ambulation;Impaired balance;Decreased ADL status;Decreased LE strength;Decreased safe judgement;Decreased cognition;Decreased endurance;Decreased fine motor coordination;Pain with mobility Patient/Family Training Bed Mobility x Transfer Training x Precautions x Other (Comment) fair to poor insight d/t cognition Discharge Recommendation PT Recommendation PT at detention Facility PT Equipment Recommended To Be Determined Plan PT Treatments/Interventions Gait Training;Therapeutic Exercises;Therapeutic Activities;Neuromuscular re-education;Patient/family training PT Frequency Daily;5 times/week PT plan for next session progress as tolerated If this is the last treatment note,it will serve as the discharge summary Yes End of Session End of Session Safety Call light within reach;Chair alarm set/activated;Nursing aware of session Interdisciplinary Collaboration RN, OT * Richa Mendoza RN - 05/23/2024 10:30 AM CDT INITIAL DISCHARGE PLAN: Reviewed chart-and notes Called to Dr. Kyle's (PCP) office spoke with coordinator in office, states that they have order diabetic testing, shower chair and incontinent supplies for patient (did not say where they ordered thru). Also stated that [facility] has been ordered. Called and spoke with Jenn, She tells me that she had Hospital Bed, Michelle Lift, Wheelchair all thetube feeding supplies and pump. They had a stair lift installed. [facility] was to come out buthe needed the PCP to see him first which he has done. She is needing the diabetic supplies, shower chir and the incontinent supplies, which I explained to her that the Doctors office has ordered for her. I do not know who or how they are coming but theystated that they are ordered. She is also needing Medicaid started- sent information to Jomar Colon and also a Referral to Christi Love at [facility] to see if patient will qualify for deck officer to help bathe. She has everything else that she needs at this time. Patient will need ambulance transportation home. 05/23/24 1026 Referral Data Source of Information DPOA/Legal guardian (Jenn Porter [phone]) Patient Information Primary Caregiver Family Current living Situation Family members Type of Residence Private residence Support System Immediate family;Outside agency ([facility]) Are you employed? Disabled Recent Hospitalization Recent Hospitalization within 30 days Yes Legal Information Legal forms Power of Labeling Associate for health care Power of Labeling Associate Healthcare Status Activated Baseline ADL's Functional Status Totally dependent Active DME Hospital bed;Wheelchair (MICHELLE LIFT /SHOWER CHAIR ON ORDER TUBE FEEDING SUPPLIES) Behavior Other (Comment) (SPEAKS SLOWLY DUE TO CVA PER SISTER) Communication Talks;Understands Cypriot;Understands speaking Current Services Being Provided Home Health Physical therapy;Occupational therapy;Speech [facility] ([facility]) Psychosocial Need Indicator Mental health concerns No Diagnosis/prognosis resulting in poor adjustment or coping with illness No Diagnosis/prognosis with anticipated outcome of major lifestyle changes, including change in [facility]p living environment No Complex Family concerns No Abuse and/or neglect of elder, adult or child No Psychiatric and/or substance abuse issues affecting current hospitalization No Homelessness with lack of safe discharge environment No Need for guardianship petition No Involuntary patient No DC screening tool This is a screening tool it does not take the place of a physical or occupational therapy evaluation. The screening is to screen the patient for what services and destination would be beneficial for patient for next level of care Conversation with the patient/family Will the patient be returning to prior living situation with no new identified needs? Yes Based on the screening the DC plan for consideration is: Patient expects to be discharged to: Home with home health care Adequate Resources Available Adequate Resources Yes [place] Only - Criminal Background check [place] only - Is patient going to [facility]? No NCM performed bedside interview, patient's name and verified: Hx:CAD CVA DM HTN PEG TUBE Support: LIVES WITH SISTER JENN PORTER Home: SINGLE FAMILY HOME Ambulation:NON AMBULATORY DME products:HOSPITAL BED, TUBE FEEDING, WC MICHELLE LIFT Medical Devices: DIABETIC SUPPLIES ON ORDER FROM PCP ADLs: DEPENDENT Drives:NONE Transport Home:AMBULANCE Skin/Bladder/Bowel: PEG TUBE A/O:X1 Communication: LIMITED SPEECH AT THIS TIME Home Health:[facility] Occupation:DISABLED Pharmacy: Financial Concerns:NEEDS MEDICAID [place]EL[place]- REFERRAL SENT PCP:NICK Insurance Plan:MEDICARE Discharge needs: AMBULANCE Care Coordination Team will provide discharge planning as needed, and will re- evaluate based on recommendations, treatment course, and the patient's expressed preferences. * Beckie Hartman RN - 05/23/2024 1:02 AM CDT Problem: Discharge Planning Goal: Knowledge of discharge instructions Outcome: Progressing Problem: Pain control/comfort Goal: Promote pain control/comfort Outcome: Progressing Problem: Skin integrity, Impaired-pressure injury/ulcer Goal: Absence of new skin breakdown Outcome: Progressing Goal: Evidence of pressure injury/ulcer healing Outcome: Progressing Problem: Moisture associated skin impairment Goal: Reduce moisture exposure Outcome: Progressing documented in this encounter H&P Notes * Al Cowart NP - 05/22/2024 11:16 PM CDT Hospitalist History and Physical Patient: Raza Solorio Date: 05/22/2024 male, 63-year-old Admit Date: 05/22/2024 Attending: Aquilino Melendez MD REASON FOR ADMISSION: Near syncope HISTORY OF PRESENT ILLNESS: Raza Solorio is a 63-year-old male has a past medical history of Coronary artery disease, Diabetes mellitus ([facility]CC), Hypertension, and Stroke ([facility]). Patient was brought to the emergency room by family after they had difficulty getting a house set up for him at home. Patient also had a near syncopal episode which scared the sister. He was at his PCP office when he became altered with diaphoresis and lethargic. Patient then had EMS called for himto be picked up to take in ED. Once he arrived to ED he was alert and oriented at baseline. He had a stroke in January which turned into a nonambulatory type patient. He was taken to rehab facility where he has had struggles and fell on Sunday. Sister who is ANAYELIA decided to take the patient home andkeep him at home. She is currently not prepared equipment [place] for him at home. Because of the nearsyncopal episode and lack of resources at home he was brought in for admission. Case management to [facility] consulted to help set up equipment for home. Patient to be admitted for near syncopal episode and case management consult. Allergy Allergies Allergen Reactions Lisinopril Angioedema Penicillins Swelling Medication list (Not in a hospital admission) No current facility-administered medications on file prior to encounter. No current outpatient medications on file prior to encounter. Medications were reconciled past lability given fall available resources at the time of admission. Route is p.o. if not otherwise noted. Past Medical History Past Medical History: Diagnosis Date Coronary artery disease Diabetes mellitus ([facility]) Hypertension Stroke ([facility]) Past Surgical History: Procedure Laterality Date CABG, VEIN, THREE PEG Social History Social History Socioeconomic History Marital status: Legally Tobacco Use Smoking status: Former Types: Cigars Quit date: 01/23/2024 Years since quittin.3 Passive exposure: Past Smokeless tobacco: Never Vaping Use Vaping status: Never Used Substance and Sexual Activity Alcohol use: Not Currently Comment: History of ETOH use prior to stroke Drug use: Never Social Determinants of Health Financial Resource Strain: Low Risk (01/24/2024) Received from [facility] Overall Financial Resource Strain (CARDIA) Difficulty of Paying Living Expenses: Not hard at all Food Insecurity: No Food Insecurity (01/24/2024) Received from [facility] Hunger Vital Sign Worried About Running Out of Food in the Last Year: Never true Ran Out of Food in the Last Year: Never true Transportation Needs: No Transportation Needs (01/24/2024) Received from [facility] PRAPARE - Transportation Lack of Transportation (Medical): No Lack of Transportation (Non-Medical): No Family History No family history on file. REVIEW OF SYSTEMS: A 14 point review of systems was taken and pertinent positive as per HPI PHYSICAL EXAMINATION: Vital 24 Hour Range Most Recent Value Temperature Temp Min: 98 ??F (36.7 ??C) Max: 98 ??F (36.7 ??C) 98 ??F (36.7 ??C) Pulse Pulse Min: 72 Max: 84 77 Respiratory Resp Min: 17 Max: 27 25 Blood Pressure BP Min: 117/84 Max: 139/89 (!) 132/90 Pulse Oximetry SpO2 Min: 94 % Max: 98 % 97 % O2 No data recorded Vital Most Recent Value First Value Weight 120.2 kg (265 lb) Weight: 120.2 kg (265 lb) Height 193 cm (6' 4 ) Height: 193 cm (6' 4 ) BMI (!) 32.27 N/A Physical Exam: GEN: In no acute distress. Breathing comfortably on room air. HEENT: Clear conjunctiva. Mucous membranes moist. RESPIRATORY: Effort normal. CTA, no wheezes or crackles. CVS: RRR, no MRG. ABD: Soft, Nontender. Peg tube EXT: No edema. MUSCULOSKELETAL: Limited ROM SKIN: Warm, dry. No rashes or ulcers. PSYCH: Appropriate affect NEURO: Alert and oriented Intake/Output last 3 shifts: No intake/output data recorded. Labs: Recent Labs Lab 05/22/24 182 NA 136 K 4.1 CL 102 CO2 26.9 AGAP 7.1 BUN 21* CR 0.94 BUNCREATININ 22.4 GLU 115* CA 9.8 Recent Labs Lab 05/22/241824 WBC 10.48 RBC 4.10* HGB 11.1* HCT 35.6* MCV 86.8 MCH 27.1 MCHC 31.2* PLT 288 RDW 14.6* MPV 9.6 Recent Labs Lab 05/22/241824 AST 11* ALT 25 Recent Labs Lab 05/22/241824 INR 1.1 PTT 34.4 Invalid input(s): ABG arterial blood gases Recent Labs Lab 05/22/24182405/22/24 2020 TROP 10 10 No results for input(s): PH , PCO2 , PO2 , [id number] , BICARBWB , BASEDEFICIT , BASEEXCESS in the last 168 hours. Laboratory results above were independently viewed and interpreted by me. Imaging & Other Studies See official reports for full details XR CHEST PORTABLE Result Date: 05/22/2024 Examination: Chest x-ray 1 view Exam date/time: 05/22/2024 5:10 PM Reason For Exam: Near syncope Comparison: No previous. Technique: Upright AP view of the chest demonstrated. Findings: Heart size is prominent. Postoperative changes with wires along the sternum. Postsurgical clips are seen superimposed to the upper chest centrally along the superior margin of the aortic arch. In the lung parenchyma no focal or acute infiltrates. No pneumothorax or effusion. No acute bony abnormalities. Monitoring devices. =====IMPRESSION:===== No acute or focal infiltrates. Prominent heart size. Postoperative findings. 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1960 Requested By: MIKEL SIMPSON Order Number: [id number] Reading MD: Measurements Intervals [place] Rate: 73 P: 81 TX: 169 QRS: 31 QRSD: 90 T: -54 QT: 384 QTc: 425 Interpretive Statements SINUS RHYTHMLOW QRS VOLTAGE IN PRECORDIAL LEADS [QRS DEFLECTION < 1.0 mV IN CHEST LEADS] SEPTAL MYOCARDIAL INFARCTION , PROBABLY OLD [40+ ms Q WAVE IN V1/V2] MODERATE T-WAVE ABNORMALITY, CONSIDER INFERIOR ISCHEMIA [-0.1+ mV T-WAVE IN II/aVF] No previous ECG available for comparison CT THORACIC SPINE WO CONTRAST Result Date: 05/17/2024 EXAM: CT THORACIC SPINE WO CONTRAST INDICATION: W19.XXXA: Unspecified fall, initial encounter, backpain TECHNIQUE: Helically acquired contiguous axial sections through [...] JR, MD on 05/17/2024 1:[address] LUMBAR SPINE NON CONTRAST Result Date: 05/17/2024 PROCEDURE: CT LUMBAR SPINE WO CONTRAST [...] subluxation. There is no osseous destruction. There isdegenerative endplate change, mild hypertrophic spurring and mild [...] JR, MD on 05/17/2024 1:[address] CERVICAL SPINE WO CONTRAST Result Date: 05/17/2024 EXAM: CT Cervical Spine Without Contrast INDICATION: W19.XXXA: Unspecified fall, initial encounter,neck injury/neck pain COMPARISON: none available TECHNIQUE: Helically [...] osseous destruction in the cervical spine > InterpretingProvider: Rony Soliman JR, MD on 05/17/2024 1:[address] HEAD WO CONTRAST Result Date: 05/17/2024 EXAM: CT scan of the brain without contrast TECHNIQUE: Axial images through the brain without contrast. [employer] software was utilized to analyze for intracranial hemorrhage. One or more of the following CT dose reduction techniques were utilized: - Automated exposure control (AEC) - Adjustment of mAand/or kV according to patient size - Use [...] PM XR Shoulder Right 2Vw or More Result Date: 05/17/2024 PROCEDURE: XR SHOULDER RIGHT 2VW OR MORE DATE/TIME OF EXAM: 05/17/2024 10:48 AM CLINICAL INFORMATION:None relevant/not provided if blank. Indication: W19.XXXA: Unspecified fall, initial encounter Additional History: COMPARISON: None. FINDINGS: 3 views of the right shoulder are submitted. No fractureor dislocation is seen. There is no radiopaque foreign body within the soft tissues. Mild arthropathy is present at the acromioclavicular joint. IMPRESSION: No acute bony abnormality seen involving the right shoulder > Interpreting Provider:Antonella Avila MD on 05/17/2024 10:51 AM XR Pelvis 1 or 2Vw Result Date: 05/17/2024 AP pelvis Indication: Pelvic pain Findings: There is no displaced fracture or dislocation. There isno osseous destruction. There is joint space narrowing and acetabular subchondral sclerosis at bilateral hips. > Interpreting Provider: Rony Soliman JR, MD on 05/17/2024 10:51 AM XR CHEST 1VW PORTABLE Result Date: 05/17/2024 PROCEDURE: XR CHEST 1VW PORTABLE, DATE/TIME OF EXAM: 05/17/2024 10:47 AM, LOCATION [facility] INDICATION: W19.XXXA: Unspecified fall, initial encounter ADDITIONAL CLINICAL INFORMATION:Ordering Provider Reason For Exam: Technologist Note: Additional: COMPARISON: April 08, 2024 FINDINGS: Single AP view of the chest shows the lungs to be expanded and clear. Cardiac size is stable. Sternotomy wires are present. No pneumothorax is seen. Pulmonary vasculature does not appear congested. IMPRESSION: There is no acute-appearing cardiac or pulmonary abnormality > Interpreting Provider: Antonella Avila MD on 05/17/2024 10:50 AM XR ABDOMEN KUB PORTABLE Result Date: 04/28/2024 PROCEDURE: XR ABDOMEN KUB PORTABLE, DATE/TIME OF EXAM: 04/28/2024 10:56 AM, LOCATION [facility] INDICATION: R68.89: Complaint associated with gastric tube (HCC) Z93.1: Complaint associated with gastric tube (HCC) ADDITIONAL CLINICAL INFORMATION: Ordering Provider Reason For Exam: G-tube placement COMPARISON: Abdominal radiograph 04/21/2024 TECHNIQUE: Supine portable frontal radiograph of the abdomen with partial visualization of the pelvis. FINDINGS: Gastrostomy tube overlies theleft upper quadrant with tip superimposes the level of the body the stomach. Contrast opacificationnoted within the gastric lumen. No evidence of definite extraluminal contrast. There are no findings to suggest bowel obstruction or definite pneumatosis on this supine study. Scattered nondistended multiple gas-filled small bowel loops noted in association with gas and fecal debris scattered within the visualized colon. No abnormal calcifications are seen. No bone abnormality is seen. Partially v isualized median sternotomy wires. IMPRESSION: Left upper quadrant gastrostomy tube with contrast opacification of the gastric lumen. No evidence of extraluminal contrast. Report dictated by Ted Weber M.D. (resident athletic trainer) 04/28/2024 10:57 AM IAv MD have personally reviewed and interpreted this examination/study. 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 Assessment & Plan Near Syncope Echo ordered May need cardiology consulted Orthostatic VS not possible due to physical condition Neuro checks EKG NSR PT/OT evaluation Fall precautions Troponin 10>10 Elevated Ddimer CTA pending No SOB complaints, did have hypoxia noted earlier in admission Non ambulatory Chronic since stroke in January 2024 Will need a hospital bed set up at home likely Will need home therapy set up as well CM consulted for resources at home Aspiration precaution Peg tube Tube feeds Consult dietary in am for feedings Fall on 05/17 Fell at NH, taken home by family to stay with sister who is POA PT/OT consulted CAD S/p CABG x3 CVA January 2024 T2DM ACHS SSI A1c HTN Home medication needs verified -DVT prophylaxis: heparin -IVF: SL -Diet: cardiac, carb -Level of care: med surg -Anticipated disposition at discharge: home -PCP: Sean Kyle MD . This note was dictated with [email or web address] medical dictation software; misspellings, punctuation errors, omitted words or dictation variances may occur. AL COWART NP 05/22/2024 Cosigned by Aquilino Melendez MD at 05/23/2024 3:04 AM CDT Associated attestation - Aquilino Melendez MD - 05/23/2024 3:04 AM CDT I, Aquilino Melendez MD, participated in the care of this patient today and discussed the plan of care with ARIELA Tan, who shared in this visit. I have reviewed the ARIELA's documentation andagree with the findings except as I have documented. I personally spent 15 minutes, caring for thispatient. 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 Patient reportedly was at PCP office and became diaphoretic and lethargic. He was brought to the ED where he had recovered from these symptoms. Patient admitted as he was being cared for by his sister but she did not have her home setup correctly nor the proper equipment to take care of him. Today, patient was lethargic during AM rounds per hospitalist. Symptoms worsened and patient becameless responsive. STAT stroke called. CT head negative for acute process. CTA head/neck showed no large vessel occlusion but did show multiple areas of atherosclerosis. Patient taken to ICU for further care. Past Medical History: Diagnosis Date Coronary artery disease Diabetes mellitus ([facility]/HCC) Hypertension Stroke ([facility]) Past Surgical History: Procedure Laterality Date CABG, VEIN, THREE PEG Social History Tobacco Use Smoking status: Former Types: Cigars Quit date: 01/23/2024 Years since quittin.3 Passive exposure: Past Smokeless tobacco: Never Vaping Use Vaping status: Never Used Substance Use Topics Alcohol use: Not Currently Comment: History of ETOH use prior to stroke Drug use: Never No family history on file. Prior to Admission medications Medication Sig Start Date End Date Taking? Authorizing Provider amLODIPine (NORVASC) 10 MG tablet 1 tablet (10 mg total) by Enteral route daily. 02/16/24 Yes DefaultHistory Genericprovider aspirin 81 MG chewable tablet 1 tablet (81 mg total) by Enteral route daily. 02/16/24 Yes Default History Genericprovider atorvastatin (LIPITOR) 40 MG tablet 1 tablet (40 mg total) by Enteral route nightly at bedtime. 02/15/24 Yes Default History Genericprovider busPIRone (BUSPAR) 5 MG tablet 1 tablet (5 mg total) by Gastrostomy Tube route 3 (three) times daily. 03/12/24 Yes Default History Genericprovider clopidogrel (PLAVIX) 75 MG tablet 1 tablet (75 mg total) by Enteral route daily. 02/16/24 Yes DefaultHistory Genericprovider famotidine (PEPCID) 20 MG tablet 1 tablet (20 mg total) by Enteral route 2 (two) times daily. 02/15/24 Yes Default History Genericprovider folic acid (FOLVITE) 1 MG tablet 1 tablet (1 mg total) by Enteral route daily. 02/16/24 Yes Default History Genericprovider Heparin Sodium, Porcine, (HEPARIN, PORCINE,) 5000 UNIT/ML injection Inject 1 mL (5,000 Units total)into the skin 2 (two) times daily. 02/15/24 Yes Default History Genericprovider hydrALAZINE (APRESOLINE) 10 MG tablet 1 tablet (10 mg total) by Gastrostomy Tube route every 8 (eight) hours. 03/12/24 Yes Default History Genericprovider loratadine (CLARITIN) 10 MG tablet 1 tablet (10 mg total) by Gastrostomy Tube route daily. 04/11/24 Yes Default History Genericprovider modafinil (PROVIGIL) 200 MG tablet 1 tablet (200 mg total) by Enteral route daily. 02/16/24 Yes Default History Genericprovider Multiple Vitamin-Folic Acid Tab 1 tablet by Enteral route daily. 02/16/24 Yes Default History Genericprovider multivitamin (THERA) tablet 1 tablet by Gastrostomy Tube route daily. 03/13/24 Yes Default History Genericprovider QUEtiapine (SEROQUEL) 25 MG tablet 1 tablet (25 mg total) by Tube route 2 (two) times daily as needed. 04/11/24 Yes Default History Genericprovider senna-docusate (SENOKOT-S) 8.6-50 MG tablet 2 tablets by Enteral route 2 (two) times daily. 02/15/24 Yes Default History Genericprovider thiamine 100 MG Tab 1 tablet (100 mg total) by Enteral route daily. 02/16/24 Yes Default History Genericprovider acetaminophen (TYLENOL) 325 MG tablet 2 tablets (650 mg total) by Gastrostomy Tube route every 6 (six) hours as needed. 03/12/24 Default History Genericprovider albuterol (PROVENTIL) (2.5 MG/3ML) 0.083% nebulizer solution Inhale 3 mLs (2.5 mg total) into the lungs every 4 (four) hours as needed. 02/15/24 Default History Genericprovider Allergies Allergen Reactions Lisinopril Angioedema Penicillins Swelling ROS: Review of Systems Unable to perform ROS: Mental status change Physical Exam Filed Vitals: 05/25/24 0020 05/25/24 0248 05/25/24 0741 05/25/24 1019 BP: 125/81 120/74 128/73 119/87 Pulse: 77 80 72 78 Resp: 22 20 Temp: 98.4 ??F (36.9 ??C) 97.3 ??F (36.3 ??C) 98.2 ??F (36.8 ??C) 97.7 ??F (36.5 ??C) TempSrc: Oral Oral Oral Oral SpO2: 97% 96% 98% 99% Weight: 120.2 kg (264 lb 15.9 oz) Height: I/O last 3 completed shifts: In: 3084 [NG/GT:3084] Out: - Physical Exam: Physical Exam Constitutional: General: He is not in acute distress. HENT: Head: Normocephalic and atraumatic. Eyes: Pupils: Pupils are equal, round, and reactive to light. Cardiovascular: Rate and Rhythm: Normal rate and regular rhythm. Pulses: Normal pulses. Heart sounds: Normal heart sounds. Pulmonary: Effort: Pulmonary effort is normal. Breath sounds: Normal breath sounds. Abdominal: General: There is no distension. Palpations: Abdomen is soft. Musculoskeletal: Right lower leg: No edema. Left lower leg: No edema. Skin: General: Skin is warm and dry. Neurological: Mental Status: He is alert. Comments: Right arm tremors, follows commands, able to speak, can move all four extremities, able to give nurse and myself two middle fingers Data: Recent Labs Lab 05/24/24 0816 05/25/24 0714 05/25/24 1028 WBC 6.54 6.02 6.45 RBC 3.92* 3.96* 4.17* HGB 10.3* 10.5* 11.0* HCT 33.4* 33.4* 35.2* MCV 85.2 84.3 84.4 MCH 26.3* 26.5* 26.4* MCHC 30.8* 31.4* 31.3* PLT 268 270 282 RDW 14.6* 14.5 14.6* MPV 9.2* 9.2* 9.7 Recent Labs Lab 05/24/24 0816 05/25/24 0714 05/25/24 1028 NA 135* 135* 136 K 3.6 3.6 4.2 CL 103 102 104 CO2 29.5 27.4 28.6 AGAP 2.5* 5.6 3.4* BUN 23* 19* 18 CR 0.88 0.82 0.87 BUNCREATININ 26.1* 23.2 20.7 GLU 118* 143* 144* CA 9.7 9.4 9.4 Recent Labs Lab 05/24/24 0816 05/25/24 0714 05/25/24 1028 TP 8.1 7.9 8.0 ALB 3.0* 2.8* 2.8* TBIL 0.3 0.3 0.3 ALKP 64 68 69 AST 10* 12* 16 ALT 21 22 23 Recent Labs Lab 05/22/24 1825 INR 1.1 Recent Labs Lab 05/22/24 1825 05/22/24201905/25/24 1028 TROP 10 10 10 Recent Labs Lab 05/22/24 1825 LACTICACID 1.3 No results for input(s): PH , PCO2 , PO2 , N8ETPQBAEENC , BICARBWB , BASEDEFICIT , BASEEXCESS in the last 168 hours. Physician/SENIOR DATA MINING ANALYST/PA can use ideal body weight (IBW) to determine the target ordered volume for Crystalloid Fluid Administration if all of the following conditions are met. [place] body weight (IBW) was used to determine target ordered volume for Crystalloid Fluid Administration. Last Recorded Weight 05/25/24 0248 Weight: 120.2 kg (264 lb 15.9 oz) [place] body weight: 86.8 kg (191 lb 5.7 oz) Adjusted ideal body weight: 100.2 kg (220 lb 13 oz) Patient is obese (defined as BMI >30). Body mass index is 32.26 kg/m??. Imaging: CT Head IMPRESSION: No acute findings CTA head/neck IMPRESSION: 1. No central large vessel arterial [...] severe stenosis of the right vertebralartery origin. EKG/tele: Measurements Intervals [place] Rate: 75 P: 58 TX: 149 QRS: 19 QRSD: 81 T: 267 QT: 371 QTc: 416 Interpretive Statements SINUS RHYTHM MODERATE T-WAVE ABNORMALITY, CONSIDER INFERIOR ISCHEMIA [-0.1+ mV T WAVE IN II/aVF] Compared to ECG 05/24/2024 12:13:55 No significant changes Microbiology: MRSA pending Blood culture pending Glucose (over past 24h): 140s Net I/O (this admission): --- Assessment/Plan: Assessment: Concern for acute CVA Encephalopathy Near syncope Elevated D-Dimer Fall CAD s/p CABGx3 CVA 01/2024 HTN DM2 Obesity Plan: -Patient with chronic neurologic deficits after CVA in January. He was found down, MRI showed brainstem infarcts. 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 Re- intubated for worsening mental status --> trached. Now decannulated. -Previous CVA appears to have cause more right sided weakness than left -Worsening mental status today, last know well time 0730 on 05/25. -Tele neuro consulted, recommended TNK -Spoke with hospitalist and pharmacist, given patient's high NIHSS of 35 (NIHSS of 8 at baseline) and recent stroke (~4 months ago), we felt that the risk of catastrophic intracranial hemorrhage was high in this patient (had previous brainstem stroke, thus bleeding from this area would almost certainly prove fatal). After speaking to patient's sister/POA, Jenn, regarding the risks of TNK along with what we believe to be minimal benefit, Jenn decided against TNK administration. We [facility]transfer [facility] to [facility] for possible [facility] intervention if indicated. -Patient is now awake, able to speak, following commands, moving extremities, and making jokes. This improvement adds to the reasoning as to not give TNK. -Repeat NIHSS 16 (at 12:51) -Adding Keppra for seizure ppx per [facility] recs -Continuing statin, ASA, Plavix -Allowing for permissive hypertension, hold all HTN meds -Able to cough, protect airway, on room air -NPO -Follow UOP -SSI -Supportive Care INFECTIOUS DISEASES: -Risk Stratification for CDI: _ (7) History of CDI _ (3) Tube Feeding _ (2) Renal Failure requiring HD or transplant _ (2) Use of Immunosuppressants (past 90 days) _ (2) Antibiotics w/in past 14 days _ (2) Receipt of cephalosporins _ (2) Underlying infection (treatment with Abx) X (2) Non-surgical admission X (2) ICU admission _ (1) Malignancy (chemo or radiation past 5 years) X (1) Age > 65 _ (1) Previous Hospitalization w/in 30 days Total Score= + 5 (Score greater than 7 = increased risk for CDI) -Plan: 1. Will utilize H2RA???s over PPI???s except when specifically contraindicated. 2. Will de-escalate all antibiotics as quickly as possible. Nutrition: NPO, TF's vis G tube DVT prophylaxis: heparin GI prophylaxis: pepcid IV access: PIV Tubes: G-tube Family discussion: Sister (JUDY) updated over phone by hospitalist Activity: bed rest Code status: Full Code I spent 110 minutes of critical care time providing direct care to this critically ill patient excluding teaching and procedures. Kem Gómez DO 05/25/24 11:50 AM * Abdon Reyes MD - 05/24/2024 10:22 AM CDTAssociated Order(s): IP CONSULT TO CARDIOLOGY Images from the original note were not included. [place], [place] [address] Cardiology Consult Note CC: syncope Consult requested by: hospitalist Primary physician intensivist: at [facility] HPI Raza Solorio is a 63-year-old M admitted 05/22/24 for near syncope, recovered by arrival in ED. Non ambulatory since CVA 01/2024, family currently attempting to coordinate resources to keep him at home. Cardiology consulted for abnormal echo. Patient speech largely limited to yes/no answers. Per notes, he presented after an episode of AMS, diaphoresis, weakness - resolved by arrival in ER. Currently denies CP, SOB, LH. Problem list: CVA 11/2023 - multiple brainstem infarcts Basilar artery stenosis s/p angioplasty, failed stenting, c/b R distal vertebral dissection Trach, PEG placed Non ambulatory CAD S/p CABG HTN Dyslipidemia DM Assessment and Plan: ?presyncope: -echo with normal EF -consider outpatient MCOT CVA: -echo with neg bubble study -etiology seems likely related to basilar artery stenosis but consider outpatient [facility]OT to screen for AF - can defer to primary neuro and cardiology CAD s/p CABG: -trop neg -on ASA and plavix -recommend HI statin for both CAD and CVA No active cardiac issues at this time - call with further questions. Thank you for allowing me to participate in the care of your patient. Please feel free to contact me with any further questions or concerns. Diagnostic studies 05/22/24 EKG: NSR, inf-lat TWI 05/23/24 TTE The left ventricular size is normal. Estimated left ventricular ejection fraction is 70%. Mild concentric left ventricular hypertrophy. There is mild hypokinesis of the mid to basal inferolateral wall and the basal inferior wall.. The agitated saline injection showed no clear evidence of shunting into the left atrium, consistent with no patent foramen ovale. Aortic root is moderately dilated, 4.4cm. Ascending aorta is moderately dilated, 4.4cm. Mild aortic regurgitation. PE: I/O last 3 completed shifts: In: - Out: 850 [Urine:850] Temp: [97.7 ??F (36.5 ??C)-98.4 ??F (36.9 ??C)] 98.1 ??F (36.7 ??C) Pulse: [62-81] 77 Resp: [16-24] 22 BP: (121-145)/(78-87) 126/83 Gen: NAD, awake and alert HEENT: atraumatic, normocephalic, PERRL, sclera anicteria, OP clear without exudate JVD: unable to assess Lungs: normal effort, CTAB Cor: RRR, no m/r/g Abd: soft, nontender, nondistended, normal BS Ext: warm and dry, no c/c/e Neuro: grossly intact Psych: normal affect Labs: Recent Labs Lab 05/22/24182405/23/2463105/24/24 0816 NA 136 136 135* K 4.1 3.7 3.6 CL 102 105 103 CO2 26.9 26.4 29.5 AGAP 7.1 4.6* 2.5* BUN 21* 22* 23* CR 0.94 0.83 0.88 BUNCREATININ 22.4 26.4* 26.1* GLU 115* 97 118* CA 9.8 9.2 9.7 MAGNESIUM -- 1.6* 1.9 Recent Labs Lab 05/22/24182405/23/2463105/24/24 0816 TP 8.6* 7.6 8.1 ALB 3.0* 2.8* 3.0* TBIL 0.3 0.4 0.3 ALKP 65 62 64 AST 11* 10* 10* ALT 25 22 21 Recent Labs Lab 05/22/24182405/23/2432 05/24/24 0816 WBC 10.48 7.42 6.54 HGB 11.1* 10.4* 10.3* PLT 288 268 268 No results found for: CHOL , TRI , HDL , LDL Lab Results Component Value Date HGBA1C 7.4 (H) 05/22/2024 Recent Labs Lab 08/08/24 1825 08/08/24 2020 TROP 10 10 Past Medical History: Diagnosis Date Coronary artery disease Diabetes mellitus ([facility]) Hypertension Stroke ([facility]) Past Surgical History: Procedure Laterality Date CABG, VEIN, THREE PEG Social History Tobacco Use Smoking status: Former Types: Cigars Quit date: 01/23/2024 Years since quittin.3 Passive exposure: Past Smokeless tobacco: Never Vaping Use Vaping status: Never Used Substance Use Topics Alcohol use: Not Currently Comment: History of ETOH use prior to stroke Drug use: Never No family history on file. aspirin 81 mg Oral Daily clopidogrel 75 mg Oral Daily heparin (porcine) 5,000 Units Subcutaneous 2 times per day insulin lispro 0-16 Units Subcutaneous TID AC And insulin lispro 0-8 Units Subcutaneous Nightly at bedtime sodium chloride 0.9% 500 mL Intravenous Once TF diabetic w/Fiber 70 mL/hr (05/24/24 0136) acetaminophen, HYDROcodone-acetaminophen, naLOXone, ondansetron, polyethylene glycol, QUEtiapine Prior to Admission medications Medication Sig Start Date End Date Taking? Authorizing Provider amLODIPine (NORVASC) 10 MG tablet 1 tablet (10 mg total) by Enteral route daily. 02/16/24 Yes DefaultHistory Genericprovider aspirin 81 MG chewable tablet 1 tablet (81 mg total) by Enteral route daily. 02/16/24 Yes Default History Genericprovider atorvastatin (LIPITOR) 40 MG tablet 1 tablet (40 mg total) by Enteral route nightly at bedtime. 02/15/24 Yes Default History Genericprovider busPIRone (BUSPAR) 5 MG tablet 1 tablet (5 mg total) by Gastrostomy Tube route 3 (three) times daily. 03/12/24 Yes Default History Genericprovider clopidogrel (PLAVIX) 75 MG tablet 1 tablet (75 mg total) by Enteral route daily. 02/16/24 Yes DefaultHistory Genericprovider famotidine (PEPCID) 20 MG tablet 1 tablet (20 mg total) by Enteral route 2 (two) times daily. 02/15/24 Yes Default History Genericprovider folic acid (FOLVITE) 1 MG tablet 1 tablet (1 mg total) by Enteral route daily. 02/16/24 Yes Default History Genericprovider Heparin Sodium, Porcine, (HEPARIN, PORCINE,) 5000 UNIT/ML injection Inject 1 mL (5,000 Units total)into the skin 2 (two) times daily. 02/15/24 Yes Default History Genericprovider hydrALAZINE (APRESOLINE) 10 MG tablet 1 tablet (10 mg total) by Gastrostomy Tube route every 8 (eight) hours. 03/12/24 Yes Default History Genericprovider loratadine (CLARITIN) 10 MG tablet 1 tablet (10 mg total) by Gastrostomy Tube route daily. 04/11/24 Yes Default History Genericprovider modafinil (PROVIGIL) 200 MG tablet 1 tablet (200 mg total) by Enteral route daily. 02/16/24 Yes Default History Genericprovider Multiple Vitamin-Folic Acid Tab 1 tablet by Enteral route daily. 02/16/24 Yes Default History Genericprovider multivitamin (THERA) tablet 1 tablet by Gastrostomy Tube route daily. 03/13/24 Yes Default History Genericprovider QUEtiapine (SEROQUEL) 25 MG tablet 1 tablet (25 mg total) by Tube route 2 (two) times daily as needed. 04/11/24 Yes Default History Genericprovider senna-docusate (SENOKOT-S) 8.6-50 MG tablet 2 tablets by Enteral route 2 (two) times daily. 02/15/24 Yes Default History Genericprovider thiamine 100 MG Tab 1 tablet (100 mg total) by Enteral route daily. 02/16/24 Yes Default History Genericprovider acetaminophen (TYLENOL) 325 MG tablet 2 tablets (650 mg total) by Gastrostomy Tube route every 6 (six) hours as needed. 03/12/24 Default History Genericprovider albuterol (PROVENTIL) (2.5 MG/3ML) 0.083% nebulizer solution Inhale 3 mLs (2.5 mg total) into the lungs every 4 (four) hours as needed. 02/15/24 Default History Genericprovider Allergies Allergen Reactions Lisinopril Angioedema Penicillins Swelling Review of Systems Unable to perform ROS: Medical condition documented in this encounter Nursing Notes * Dorothea Miranda RN - 05/25/2024 10:36 AM CDT 1019: On arrival to room, this RN noted Dr. Mendoza at bedside placing orders. Magali RN caring for ptstated she took care of this pt yesterday and he was interactive, conversational, but now is nonverbal and not tracking with his eyes. 119/87 HR 78 99% on room air BS 155 Responds to pain for IV sticks. EKG shows NSR. #20 IV placed in left hand. Labs drawn Transported to CT per bed for stat non contrast head CT and CTA head and neck. Notified teleneuro. 1100 NIH done by this RN = [address] Perez Quinonez logged in 1130: Repeat NIH 35 Dr. Quinonez recommended TNK. Dr. Gómze notified and Dolores, ZainD at bedside. Dr. Mendoza speaking with pt's sister re: risks and benefits of TNK. Noted pt had a brain stem stroke in January [address]24. Per Dr. Quinonez, LKW time was 0730 1140: Dr. Mendoza speaking with pt's sister again in light of brain stem stroke and possibility of catastrophic brain bleed. 1149: Pt is not to receive TNK per family. Will trf to ICU 216 * Sandra Lee RN - 05/25/2024 4:03 AM CDT This RN talked to patient about getting an IV placed since he didn't have one and has some new testordered. Patient refusing any IV and stating he wants to go home. This RN spoke with sales ambassador Catrachita who also went into patients room to speak with him about needing an IV access, patient seemed moreconfused and thought he was at his sisters house. Patient also refused any IV with charge nurse, and said he wants to go home. * Aiyana Hebert RN - 05/24/2024 7:48 AM CDT notified that this RN got in report that patient was supposed to discharge this morning but no discharge orders are placed at this time. RN asked MD if that is still the plan. RN also contacted case management to verify that home health is set up. Case management confirmed that it is set up. MD Brooke Mendoza said that patient would not discharge until closer to noon today. RN notified [facility] and changed trip time to noon. 0950-per Brooke Mendoza, DO patient will not be discharging today, EMS cancelled. * Catrachita Mendez RN - 05/23/2024 10:[address] head resulted and ok for discharge from . Called [facility] for transport, and current ETA is 0315. Per family's request, transport scheduled for 05/24 at 0700. Trip #[id number]. * Catrachita Mendez RN - 05/23/2024 7:20 PM CDT Radiologist was called to check on status of CT report. states that currently stat and trauma cases are being read first but that patient is on the list to be read after those. documented in this encounter ED Notes * Mikel Simpson MD - 05/22/2024 4:48 PM CDTAssociated Order(s): EKG Reading Chief Complaint Chief Complaint Patient presents with Altered Mental Status History of Present Illness Raza Solorio is a 63-year-old male with a PMH of CAD, DM, HTN and stroke presents to the ED by EMS for evaluation of near syncope. Per sister (POA) at bedside, patient was at his PCP's office when he suddenly became diaphoretic, lethargic and mentally altered. Since arrival to this ED, patient has returned to baseline. He currently has no physical complaints. Sister states he had a stroke in January 2024 and has since been nonambulatory. She reports he's been staying in rehab facilities since the stroke until he had a fall last Thursday 05/17 provoking her to keep him at her home. She additionally states patient has had foul smelling urine recently. No abdominal pain, nausea/vomiting or f ever/chills. Patient currently has a feeding tube. Patient lives at home with sister JUDY. Patient is not anticoagulated. Allergies include lisinopril and penicillins. Surgical history includes CABG. No tobacco, alcohol, or illicit drug use. Patient is COVID immunized. PCP is Dr. Nicole. Laundry Assistant is at [facility] Medical History ALLERGIES: Review of patient's allergies indicates: Allergen Reactions Lisinopril Angioedema Penicillins Swelling MEDICATIONS: Prior to Admission medications Not on File PAST MEDICAL HISTORY: Past Medical History: Diagnosis Date Coronary artery disease Diabetes mellitus ([facility]) Hypertension Stroke ([facility]) PAST SURGICAL HISTORY: Past Surgical History: Procedure Laterality Date CABG, VEIN, THREE PEG FAMILY HISTORY: No family history on file. SOCIAL HISTORY: Social History Tobacco Use Smoking status: Former Types: Cigars Quit date: 01/23/2024 Years since quittin.3 Passive exposure: Past Smokeless tobacco: Never Vaping Use Vaping status: Never Used Substance Use Topics Alcohol use: Not Currently Comment: History of ETOH use prior to stroke Drug use: Never Review of Systems Review of Systems Unable to perform ROS: Other Physical Exam Filed Vitals: 05/22/24 1730 05/22/24 1900 05/22/24 2000 05/22/24 2100 BP: 117/84 130/81 127/75 (!) 132/90 Pulse: 73 77 75 77 Resp: 24 25 Temp: TempSrc: SpO2: 98% 97% 97% Weight: Height: Physical Exam Vitals and nursing note reviewed. Constitutional: General: He is not in acute distress. Appearance: He is well-developed. HENT: Head: Normocephalic and atraumatic. Right Ear: External ear normal. Left Ear: External ear normal. Eyes: General: No scleral icterus. Conjunctiva/sclera: Conjunctivae normal. Pupils: Pupils are equal, round, and reactive to light. Neck: Vascular: No JVD. Cardiovascular: Rate and Rhythm: Normal rate and regular rhythm. Heart sounds: Normal heart sounds. No murmur heard. No friction rub. No gallop. Pulmonary: Effort: Pulmonary effort is normal. No respiratory distress. Breath sounds: Normal breath sounds. No stridor. No wheezing or rales. Chest: Chest wall: No tenderness. Abdominal: General: Bowel sounds are normal. There is no distension. Palpations: Abdomen is soft. There is no mass. Tenderness: There is no abdominal tenderness. There is no guarding or rebound. Musculoskeletal: General: No deformity. Normal range of motion. Cervical back: Normal range of motion and neck supple. Skin: General: Skin is warm and dry. Findings: No rash. Neurological: Mental Status: He is alert and oriented to person, place, and time. Psychiatric: Behavior: Behavior normal. Thought Content: Thought content normal. Judgment: Judgment normal. Diagnostic Studies / Procedures ELECTROCARDIOGRAMS: Results for orders placed or performed during the hospital encounter of 05/22/24 ECG 12 lead Narrative [address] Test Date: 2024-05-22 Pat Name: RAZA SOLORIO Department: Room: [place] [address] Gender: M [employer]: : 1960 Requested By: MIKEL SIMPSON Order Number: [id number] Reading MD: Measurements Intervals [place] Rate: 73 P: 81 TX: 169 QRS: 31 QRSD: 90 T: -54 QT: 384 QTc: 425 Interpretive Statements SINUS RHYTHM LOW QRS VOLTAGE IN PRECORDIAL LEADS [QRS DEFLECTION < 1.0 mV IN CHEST LEADS] SEPTAL MYOCARDIAL INFARCTION , PROBABLY OLD [40+ ms Q WAVE IN V1/V2] MODERATE T-WAVE ABNORMALITY, CONSIDER INFERIOR ISCHEMIA [-0.1+ mV T-WAVE IN II/aVF] No previous ECG available for comparison LABORATORY STUDIES: Results for orders placed or performed during the hospital encounter of 05/22/24 CBC W/DIFF AUTOMATED Result Value Ref Range WBC 10.48 4.5 - 11.0 x10'3/uL RBC 4.10 (L) 4.70 - 6.10 x10'6/uL HGB 11.1 (L) 14.0 - 18.0 G/DL HCT 35.6 (L) 43.0 - 54.0 % MCV 86.8 80.0 - 94.0 FL MCH 27.1 27.0 - 31.0 PG MCHC 31.2 (L) 32.0 - 36.0 G/DL RDW 14.6 (H) 11.5 - 14.5 % PLT 288 130 - 400 x10'3/uL MPV 9.6 9.3 - 12.2 FL DIFFERENTIAL TYPE AUTOMATED DIFFERENTIAL NEUTROPHILS % 62.5 % LYMPHOCYTES % 28.7 % MONOCYTES % 7.2 % EOSINOPHILS 1.0 % BASOPHILS 0.3 % IMMATURE GRANS % 0.3 % ABS. NEUTROPHILS 6.56 1.80 - 7.70 x10'3/uL ABS. LYMPHOCYTES 3.01 1.00 - 4.80 x10'3/uL ABS. MONOCYTES 0.75 0.30 - 0.82 x10'3/uL ABS. EOSINOPHILS 0.10 0.04 - 0.54 x10'3/uL ABS. BASOPHILS 0.03 0.01 - 0.08 x10'3/uL ABS. IMMATURE GRANULOCYTES 0.03 0.00 - 0.49 x10'3/uL PROTIME/INR, VENOUS Result Value Ref Range PROTIME 12.7 10.2 - 12.9 SEC INR 1.1 PARTIAL THROMBOPLASTIN TIME,PTT Result Value Ref Range PTT 34.4 25.1 - 36.5 SEC COMPREHENSIVE METABOLIC PANEL Result Value Ref Range GLUCOSE 115 (H) 70 - 99 MG/DL BUN 21 (H) 7 - 18 MG/DL CREATININE S/P/B 0.94 0.7 - 1.3 MG/DL SODIUM S/P/B 136 136 - 145 MMOL/L POTASSIUM S/P/B 4.1 3.5 - 5.1 MMOL/L CHLORIDE S/P/B 102 100 - 108 MMOL/L CO2 26.9 21 - 32 MMOL/L CALCIUM S/P/B 9.8 8.5 - 10.1 MG/DL BILIRUBIN TOTAL S/P/B 0.3 0.2 - 1.2 MG/DL TOTAL PROTEIN S/P/B 8.6 (H) 6.4 - 8.2 G/DL ALBUMIN S/P/B 3.0 (L) 3.4 - 5.0 G/DL AST 11 (L) 15 - 37 U/L ALT 25 16 - 60 U/L ALKALINE PHOSPHATASE S/P/B 65 50 - 136 U/L ANION GAP 7.1 5 - 15 MMOL/L BUN CREATININE RATIO 22.4 6 - 26 A/G RATIO 0.5 (L) 1.0 - 2.0 RATIO GFR ESTIMATE 90 (L) >90 ML/MIN/1.73 M2 TROPONIN, QUANT Result Value Ref Range TROPONIN I HIGH SENSITIVITY 10 <79 ng/L URINALYSIS Result Value Ref Range Specimen Type URINE STRAIGHT CATH COLOR (U) YELLOW TRANSPARENCY CLEAR SPECIFIC GRAVITY (U) 1.026 1.001 - 1.030 U PH 6.5 5.0 - 9.0 LEUKOCYTES (U) NEGATIVE NEGATIVE NITRITES NEGATIVE NEGATIVE PROTEIN RANDOM (U) 10 <30 MG/DL GLUCOSE (U) NORMAL NORMAL MG/DL KETONES MG/DL (U) NEGATIVE NEGATIVE MG/DL UROBILINOGEN 2.0 (A) NORMAL MG/DL BILIRUBIN (U) NEGATIVE NEGATIVE MG/DL BLOOD (U) NEGATIVE NEGATIVE LACTIC ACID W REFLEX (SEPSIS) Result Value Ref Range LACTIC ACID VENOUS 1.3 0.4 - 2.0 MMOL/L TROPONIN, QUANT Result Value Ref Range TROPONIN I HIGH SENSITIVITY 10 <79 ng/L D-DIMER, QUANTITATIVE Result Value Ref Range D-DIMER 1,229 (HH) 0 - 500 ng[FEU]/mL IMAGING STUDIES XR CHEST PORTABLE Final Result by User, [id number] (05/22 1743) Examination: Chest x-ray 1 view Exam date/time: 05/22/2024 5:10 PM Reason For Exam: Near syncope Comparison: No previous. Technique: Upright AP view of the chest demonstrated. Findings: Heart size is prominent. Postoperative changes with wires along the sternum. Postsurgical clips are seen superimposed to the upper chest centrally along the superior margin of the aortic arch. In the lung parenchyma no focal or acute infiltrates. No pneumothorax or effusion. No acute bony abnormalities. Monitoring devices. =====IMPRESSION:===== No acute or focal infiltrates. Prominent heart size. Postoperative findings. Ordered By: MIKEL SIMPSON Interpreted By: Kodak Govea MD, 05/22/2024 5:41 PM EKG Reading Date/Time: 05/22/2024 5:42 PM Performed by: Mikel Simpson MD Authorized by: Mikel Simpson MD Interpreted by ED physician Comparison: not compared with previous ECG Rhythm: sinus rhythm Rate: normal BPM: 73 Comments: Normal sinus rhythm. Heart rate 73. Normal axis normal interval normal QRS nonspecific ST-T wave change. No old EKG to compare. Rhythm strip are interpreted 1734 Normal sinus rhythm. Heart rate 73. No ectopy ED Course / Medical Decision Making Medical Decision Making Patient is a 63-year-old male with a PMH of CAD, DM, HTN and stroke presents to the ED by EMS for evaluation of near syncope. Per sister (JUDY) at bedside, patient was at his PCP's office when he suddenly became diaphoretic, lethargic and mentally altered. Since arrival to this ED, patient has returned to baseline. He currently has no physical complaints. Sister states he had a stroke in January 2024 and has since been nonambulatory. She reports he's been staying in rehab facilities since the stroke until he had a fall last Thursday 05/17 provoking her to keep him at her home. She additionally states patient has had foul smelling urine recently. No abdominal pain, nausea/vomiting or fever/chills. Patient currently has a feeding tube. Patient lives at home with sister JUDY. Patient is not anticoagulated. Allergies include lisinopril and penicillins. Surgical history includes CABG. No tobacco, alcohol, or illicit drug use. Patient is COVID immunized. PCP is Dr. Nicole. 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 Details: Reviewed office note from Dr. Nicole from today Labs: ordered. Decision-making details documented in ED Course. Radiology: ordered. Decision-making details documented in ED Course. ECG/medicine tests: ordered and independent interpretation performed. Decision- making details documented in ED Course. Discussion of management or test interpretation with external provider(s): Communicated with hospitalist Risk Decision regarding hospitalization. Pulse Ox ordered and interpreted: Saturation: 94 (%) Oxygen Delivery: room air Interpretation: No acute hypoxia at this time. ED Course as of 05/22/242212 [facility] May 22, [id number] [facility] hospitalist pertinent information [CA] ED Course User Index [CA] Mikel Simpson MD Clinical Impression Weakness (Primary) Near syncope Disposition: Admit Voice-recognition software used. I, Leena Brown, acting as a scribe, am personally taking down the notes in the presence of Dr. Mikel Simpson MD. Take no action on this note until reviewed and authenticated by the physician. Mikel Simpson MD 05/22/242212 * Judy Caban RN - 05/22/2024 3:59 PM CDT Patient tyrone per EMS to the ED for a near syncope apisode while at a providers office. He was reported as diaphoretic and altered mental status. EMS reports this was resolved upon their arrival. * Kem Mar RN - 05/22/2024 3:52 PM CDT Bed: 14 Expected date: Expected time: Means of arrival: Comments: MEDIC 5 documented in this encounter Plan of Treatment Not on file documented as of this encounter Procedures Procedure Name Priority Date/Time Associated Diagnosis Comments POCT GLUCOSE - RAMSEY DOCKED DEVICE Routine 05/25/2024 5:27 PM CDT POCT GLUCOSE - RAMSEY DOCKED DEVICE Routine 05/25/2024 1:30 PM CDT XR CHEST PORTABLE STAT 05/25/2024 12: 03 PM CDT LACTIC ACID Routine 05/25/2024 11:52 AM CDT AMMONIA Routine 05/25/2024 11:52 AM CDT CULTURE, BACTERIA, BLOOD Routine 024 11:51 AM CDT PARTIAL THROMBOPLASTIN TIME,PTT Routine 05/25/2024 11:14 AM CDT PROTHROMBIN TIME, VENOUS Routine 024 11:[address] STROKE(HEAD WO) STAT 05/25/2024 11 :04 AM CDT CTA HEAD+NECK STAT 05/25/2024 11:04 AM CDT COMPREHENSIVE METABOLIC PANEL STAT 05/25/2024 10:28 AM CDT CBC W/DIFF AUTOMATED Routine 05/25/2024 10:28 AM CDT TROPONIN, QUANT STAT 05/25/2024 10:28 AM CDT ECG 12-LEAD Routine 05/25/2024 10:21 AM CDT POCT GLUCOSE - RAMSEY DOCKED DEVICE Routine 05/25/2024 10:17 AM CDT COMPREHENSIVE METABOLIC PANEL Routine 05/25/2024 7:14 AM CDT CBC W/DIFF AUTOMATED Routine 05/25/2024 7:14 AM CDT MAGNESIUM Routine 05/25/2024 7:14 AM CDT POCT GLUCOSE - RAMSEY DOCKED DEVICE Routine 05/25/2024 5:48 AM CDT POCT GLUCOSE - RAMSEY DOCKED DEVICE Routine 05/25/2024 12:24 AM CDT POCT GLUCOSE - RAMSEY DOCKED DEVICE Routine 05/24/2024 9:10 PM CDT EEG Routine 05/24/2024 7:26 PM CDT POCT GLUCOSE - RAMSEY DOCKED DEVICE Routine 05/24/2024 5:57 PM CDT POCT GLUCOSE - RAMSEY DOCKED DEVICE Routine 05/24/2024 2:55 PM CDT POCT GLUCOSE - RAMSEY DOCKED DEVICE Routine 05/24/2024 12:45 PM CDT ECG 12-LEAD Routine 05/24/2024 12:13 PM CDT COMPREHENSIVE METABOLIC PANEL Routine 05/24/2024 8:16 AM CDT CBC W/DIFF AUTOMATED Routine 05/24/2024 8:16 AM CDT MAGNESIUM Routine 05/24/2024 8:16 AM CDT POCT GLUCOSE - RAMSEY DOCKED DEVICE Routine 05/24/2024 6:31 AM CDT POCT GLUCOSE - RAMSEY DOCKED DEVICE Routine 05/23/2024 8:[address] HEAD WO CON HIMANSHU 05/23/2024 5:42 PM CDT POCT GLUCOSE - RAMSEY DOCKED DEVICE Routine 05/23/2024 3:37 PM CDT USE ECHO 2D FU LTD W CON Routine 024 12:33 PM CDT POCT GLUCOSE - RAMSEY DOCKED DEVICE Routine 05/23/2024 10:31 AM CDT COMPREHENSIVE METABOLIC PANEL Routine 05/23/2024 6:32 AM CDT CBC W/DIFF AUTOMATED Routine 05/23/2024 6:32 AM CDT MAGNESIUM Routine 05/23/2024 6:32 AM CDT POCT GLUCOSE - RAMSEY DOCKED DEVICE Routine 05/23/2024 5:38 AM CDT POCT GLUCOSE - RAMSEY DOCKED DEVICE Routine 05/22/2024 11:34 PM CDT CTA CHEST PE PROTOCOL STAT 05/22/2024 11:13 PM CDT TROPONIN, QUANT STAT 05/22/2024 8:20 PM CDT HC URINALYSIS AUTO W/O MICRO STAT 05/22/2024 6:32 PM CDT LACTIC ACID W REFLEX (SEPSIS) STAT 05/22/2024 6:25 PM CDT HEMOGLOBIN, GLYCOSYLATED STAT 024 6:25 PM CDT PARTIAL THROMBOPLASTIN TIME,PTT STAT 05/22/2024 6:25 PM CDT PROTHROMBIN TIME, VENOUS STAT 024 6:25 PM CDT COMPREHENSIVE METABOLIC PANEL STAT 05/22/2024 6:25 PM CDT D-DIMER, QUANTITATIVE STAT 05/22/2024 6:25 PM CDT CBC W/DIFF AUTOMATED STAT 05/22/2024 6:25 PM CDT TROPONIN, QUANT STAT 05/22/2024 6:25 PM CDT ELECTROCARDIOGRAM REPORT Routine 5:42 PM CDT ECG 12-LEAD Routine 05/22/2024 5:34 PM CDT XR CHEST PORTABLE STAT 05/22/2024 5:2 9 PM CDT documented in this encounter Results * (ABNORMAL) POCT glucose (05/25/2024 5:27 PM CDT) [facility] Signature GLUCOSE POC 105(H) 70 - 99 mg/dL 05/25/2024 5:37 PM CDT [facility] 05/25/2024 5:27 PM CDT Adcleo Mendoza DO POCT ORDERABLES - DEVICE Final R esult Performing Organization Address City/[facility]/ZIP Co de Phone Number [facility] [address] [place] [address], [place] [phone] * (ABNORMAL) POCT glucose (05/25/2024 1:30 PM CDT) GLUCOSE POC 137(H) 70 - 99 mg/dL 05/25/2024 1:31 PM CDT [facility] 05/25/2024 1:30 PM CDT Brooke Mendoza POCT ORDERABLES - DEVICE Final R esult Performing Organization Address City/[facility] Co de Phone Number [facility] [address] [place] [address], [place] [phone] * XR CHEST PORTABLE (05/25/2024 12:03 PM CDT) Anatomical Region Laterality Modality Chest Radiographic Love ging 05/25/2024 12:0 4 PM CDT Impressions 05/25/2024 12:06 PM CDT IMPRESSION: Rotated patient = summation artifact in right apical chest from overlapping structures. No acute cardiopulmonary process. Referred By: ?? Interpreted By: Bon Quinonez MD, 05/25/2024 12:04 PM Narrative 05/25/2024 12:06 PM CDT EXAM: AP CHEST CLINICAL STATEMENT: Confusion COMPARISON: 05/22/2024. TIME:05/25/2024 10:37 AM FINDINGS: One upright portable AP view of the chest. Rotated patient = summation artifact in right apical chest from overlapping structures. There are no focal pulmonary opacities, pneumothoraces or pleural effusions. ??Old granulomata. Stable heart and vascular contours. Stable osseous structures and sternal wires. Procedure Note Bon Quinonez MD - 05/25/2024 EXAM: AP CHEST CLINICAL STATEMENT: Confusion COMPARISON: 05/22/2024. TIME:05/25/2024 10:37 AM FINDINGS: One upright portable AP view of the chest. Rotated patient = summation artifact in right apical chest fromoverlapping structures. There are no focal pulmonary opacities, pneumothoraces or pleuraleffusions. Old granulomata. Stable heart and vascular contours. Stable osseous structures and sternal wires. IMPRESSION: Rotated patient = summation artifact in right apical chest fromoverlapping structures. No acute cardiopulmonary process. Referred By: Interpreted By: Bon Quinonez MD, 05/25/2024 12:04 PM Brooke Mendoza DO GENERAL IMAGING Final Result * LACTIC ACID - SINGLE (05/25/2024 11:52 AM CDT) LACTIC ACID VENOUS 1.2 0.4 - 2.0 MMOL/L 05/25/2024 12:29 PM CDT [facility] 05/25/2024 11:5 2 AM CDT Brooke Mendoza DO LABORATORY Final Result [facility] [address] [place] [address], [place] [phone] * (ABNORMAL) AMMONIA (05/25/2024 11:52 AM CDT) AMMONIA 45(H) 11 - 32 UMOL/L 05/25/2024 12:26 PM CDT [facility] 05/25/2024 11:5 2 AM CDT Brooke Mendoza DO LABORATORY Final Result [facility] [address] [place] [address], [place] [phone] * CULTURE, BACTERIA, BLOOD (05/25/2024 11:51 AM CDT) SPEC DESCRIPTION BLOOD 05/25/2024 10:18 AM CDT [facility] SPECIAL REQUESTS NO SPECIAL REQUEST 05/25/2024 10:18 AM CDT [facility] CULTURE RESULT NO GROWTH 5 DAYS 05/30/2024 9:45 AM CDT [facility] BLOOD SPECIMEN OBTAINED FOR BLOOD CULTURE / Unknown 05/25/2024 11:51 AM CDT 05/25/2024 11:52 AM CDT Brooke Mendoza DO MICROBIOLOGY - GENERAL ORDERABLE S Final Result Performing Organization Address City/[facility]/ZIP Co de Phone Number [facility] [address] [place] [address], [place] [phone] * PARTIAL THROMBOPLASTIN TIME,PTT (05/25/2024 11:14 AM CDT) PTT 33.5 25.1 - 36.5 SEC 05/25/2024 12:11 PM CDT [facility] 05/25/2024 11:1 4 AM CDT Brooke Mendoza DO LABORATORY Final Result [facility] [address] [place] [address], * PROTIME/INR, VENOUS (05/25/2024 11:14 AM CDT) PROTIME 12.1 10.2 - 12.9 SEC 05/25/2024 12:11 PM CDT [facility] INR 1.0 05/25/2024 12:11 PM CDT [facility] Comment: Recommended INR Therapeutic Goals: ??2.0-3.0 Routine Therapy ??2.5-3.5 Mechanical Prosthetic Valves (High Risk) 05/25/2024 11:1 4 AM CDT Josecleo Mendoza LABORATORY Final Result Performing Organization Address City/State/[facility] Co de Phone Number [facility] [address] [place] [address], * CTA HEAD+NECK (05/25/2024 11:04 AM CDT) Anatomical Region Laterality Modality Head, Neck Computed Tomogra phy 05/25/2024 11:0 2 AM CDT Impressions 05/25/2024 11:22 AM CDT IMPRESSION: 1. ?? No central large vessel arterial occlusion in the brain. ??Multifocal arterial stenosis as described below, consider MRI follow-up if clinically indicated. 2. ??No hemodynamically significant carotid stenosis. ??Nascet criteria utilized for interpretation. ??There is evidence of bilateral common and internal carotid atherosclerosis, but no significant stenosis. 3. ??Atherosclerosis of the internal carotid arteries bilaterally with severe stenosis of the right intracranial internal carotid and moderate stenosis of the left. ??Supraclinoid portion of the left internal carotid artery demonstrates fusiform dilatation measuring up to 5.2 mm. 4. ??Moderate stenosis of the inferior aspect of the basilar artery, without evidence of occlusion. 5. ??A1 segment of the right anterior cerebral artery is absent, the A2 segment is fed through a widely patent anterior communicating artery. 6. ??Moderate stenosis of the left vertebral artery origin and severe stenosis of the right vertebral artery origin. Referred By: ?? Interpreted By: Aaron Edwards MD, 05/25/2024 11:02 AM Narrative 05/25/2024 11:22 AM CDT EXAMINATION: CT ANGIOGRAM BRAIN AND NECK WITH CONTRAST EXAM DATE: 05/25/2024 10:47 AM REASON FOR EXAM: ??stroke ?? COMPARISON: None TECHNIQUE: Axial images of the head and neck after injection of 100 mL Isovue- 370. 3-D post processed images were reconstructed on an independent workstation with concurrent physician supervision. Dose lowering technique was used for this study which may include, but is not limited to, dose reduction techniques, automated exposure control, use of iterative ??reconstruction and ALARA (As low As Reasonably Achievable)/Image Gently techniques. ?? FINDINGS: BRAIN: Right internal carotid artery: Wall calcifications indicate atherosclerosis. ??Severe stenosis of the intracranial internal carotid artery on the right. ??No evidence of occlusion. Left internal carotid artery:Wall calcifications indicate atherosclerosis. ??Moderate stenosis. ??The supraclinoid portion demonstrates fusiform dilatation measuring up to 5.2 mm. Right vertebral artery:Within normal limits. Left vertebral artery: ??Within normal limits. Basilar artery: ??Moderate stenosis of the inferior aspect of the basilar artery, no occlusion or aneurysm. Right anterior cerebral artery: ??A 1 segment of the right anterior cerebral artery is absent and may be occluded or aplastic. ??The A2 segment is fed through a widely patent anterior communicating artery. Left anterior cerebral artery: ??Within normal limits. Anterior communicating artery: ??Within normal limits. Right middle cerebral artery: ??Within normal limits. Left middle cerebral artery: ??Within normal limits. Right posterior cerebral artery: ??Within normal limits. Left posterior cerebral artery: ??Within normal limits. Right posterior communicating artery: ??Hypoplastic P1 segment, a normal variant. Left posterior communicating artery: ??Within normal limits. NECK: Right common carotid artery: ??Within normal limits. Left common carotid artery: ??Wall calcifications of the distal left common carotid artery, indicating atherosclerosis. ??No evidence of significant stenosis. Right internal carotid artery: ??Wall calcifications at the origin, no significant stenosis. Left internal carotid artery: ??Wall calcifications at the origin, no significant stenosis. External carotid arteries: ??Within normal limits. Right vertebral artery: ??Moderate to severe stenosis at the origin. ??Otherwise within normal limits. Left vertebral artery: ??Moderate stenosis of the proximal left vertebral artery origin. ??Otherwise within normal limits. SOFT TISSUES: Lung apices demonstrate emphysema. ??Partially imaged CABG. ??No evidence of soft tissue mass in the neck or mucosal tissues. No evidence of fracture. ??Extensive degenerative changes of the cervical spine with multilevel foraminal stenosis. Procedure Note Aaron Edwards MD - 05/25/2024 EXAMINATION: CT ANGIOGRAM BRAIN AND NECK WITH CONTRAST EXAM DATE: 05/25/2024 10:47 AM REASON FOR EXAM: stroke COMPARISON: None TECHNIQUE: Axial images of the head and neck after injection of 100 mLIsovue- 370. 3-D post processed images were reconstructed on an independent workstationwith concurrent physician supervision. Dose lowering technique was used for this study which may include, but isnot limited to, dose reduction techniques, automated exposure control, use of iterativereconstruction and ALARA (As low As Reasonably Achievable)/Image Gently techniques. FINDINGS: BRAIN: Right internal carotid artery: Wall calcifications indicateatherosclerosis. Severe stenosis of the intracranial internal carotidartery on the right. No evidence of occlusion. Left internal carotid artery:Wall calcifications indicate atherosclerosis.Moderate stenosis. The supraclinoid portion demonstrates fusiformdilatation measuring up to 5.2 mm. Right vertebral artery:Within normal limits. Left vertebral artery: Within normal limits. Basilar artery: Moderate stenosis of the inferior aspect of the basilarartery, no occlusion or aneurysm. Right anterior cerebral artery: A 1 segment of the right anteriorcerebral artery is absent and may be occluded or aplastic. The A2 segmentis fed through a widely patent anterior communicating artery. Left anterior cerebral artery: Within normal limits. Anterior communicating artery: Within normal limits. Right middle cerebral artery: Within normal limits. Left middle cerebral artery: Within normal limits. Right posterior cerebral artery: Within normal limits. Left posterior cerebral artery: Within normal limits. Right posterior communicating artery: Hypoplastic P1 segment, a normalvariant. Left posterior communicating artery: Within normal limits. NECK: Right common carotid artery: Within normal limits. Left common carotid artery: Wall calcifications of the distal left commoncarotid artery, indicating atherosclerosis. No evidence of significantstenosis. Right internal carotid artery: Wall calcifications at the origin, nosignificant stenosis. Left internal carotid artery: Wall calcifications at the origin, nosignificant stenosis. External carotid arteries: Within normal limits. Right vertebral artery: Moderate to severe stenosis at the origin.Otherwise within normal limits. Left vertebral artery: Moderate stenosis of the proximal left vertebralartery origin. Otherwise within normal limits. SOFT TISSUES: Lung apices demonstrate emphysema. Partially imaged CABG. No evidence ofsoft tissue mass in the neck or mucosal tissues. No evidence of fracture. Extensive degenerative changes of the cervicalspine with multilevel foraminal stenosis. IMPRESSION: 1. No central large vessel arterial occlusion in the brain. Multifocalarterial stenosis as described below, consider MRI follow-up if clinicallyindicated. 2. No hemodynamically significant carotid stenosis. Nascet criteriautilized for interpretation. There is evidence of bilateral common andinternal carotid atherosclerosis, but no significant stenosis. 3. Atherosclerosis of the internal carotid arteries bilaterally withsevere stenosis of the right intracranial internal carotid and moderatestenosis of the left. Supraclinoid portion of the left internal carotidartery demonstrates fusiform dilatation measuring up to 5.2 mm. 4. Moderate stenosis of the inferior aspect of the basilar artery,without evidence of occlusion. 5. A1 segment of the right anterior cerebral artery is absent, the P6beehiln is fed through a widely patent anterior communicating artery. 6. Moderate stenosis of the left vertebral artery origin and severestenosis of the right vertebral artery origin. Referred By: Interpreted By: Aaron Edwards MD, 05/25/2024 11:02 AM Brooke Mendoza DO CT Final Result * CT STROKE(HEAD WO) (05/25/2024 11:04 AM CDT) Anatomical Region Laterality Modality Head Computed Tomogra phy 05/25/2024 10:5 0 AM CDT Impressions 05/25/2024 10:51 AM CDT IMPRESSION: No acute findings Ordered By: BROOKE MENDOZA Interpreted By: Jayden Addison MD, 05/25/2024 10:50 AM Narrative 05/25/2024 10:[address] HEAD WITHOUT CONTRAST Exam date: 05/25/2024 10:51 AM Clinical history: Nonresponsive Technique: 3 mm collimated axial images of the head were obtained without contrast. A dose lowering technique was used for this procedure, which may include, but is not limited to, dose reduction technique, automated exposure control, the use of iterative reconstruction, and ALARA (As Low As Reasonably Achievable) / Image Gently techniques. Comparison: reviewed without prior studies available for comparison. FINDINGS: Images of the head demonstrate no evidence of acute or chronic intracranial hemorrhage. No masses or mass effects are seen. The ventricles and sulci are symmetric and appear normal. There is normal mcgraw-white differentiation throughout. There is no evidence of midline shift. Bone windows reveal the paranasal sinuses and mastoid air cells to appear clear. There is no evidence of fracture. Procedure Note Jayden Addison MD - 05/25/2024 CT HEAD WITHOUT CONTRAST Exam date: 05/25/2024 10:51 AM Clinical history: Nonresponsive Technique: 3 mm collimated axial images of the head were obtained withoutcontrast. A dose lowering technique was used for this procedure, which mayinclude, but is not limited to, dose reduction technique, automatedexposure control, the use of iterative reconstruction, and ALARA (As LowAs Reasonably Achievable) / Image Gently techniques. Comparison: reviewed without prior studies available for comparison. FINDINGS: Images of the head demonstrate no evidence of acute or chronicintracranial hemorrhage. No masses or mass effects are seen. Theventricles and sulci are symmetric and appear normal. There is normalgray-white differentiation throughout. There is no evidence of midlineshift. Bone windows reveal the paranasal sinuses and mastoid air cells to appearclear. There is no evidence of fracture. IMPRESSION: No acute findings Ordered By: BROOKE MENDOZA Interpreted By: Jayden Addison MD, 05/25/2024 10:50 AM us Brooke Mendoza DO CT Final Result * (ABNORMAL) COMPREHENSIVE METABOLIC PANEL (05/25/2024 10:28 AM CDT) [facility] Signature GLUCOSE 144(H) 70 - 99 MG/DL 05/25/2024 11:17 AM CDT [facility] BUN 18 7 - 18 MG/DL 05/25/2024 11:17 AM CDT [facility] CREATININE S/P/B 0.87 0.7 - 1.3 MG/DL 05/25/2024 11:17 AM CDT [facility] SODIUM S/P/B 136 136 - 145 MMOL/L 05/25/2024 11:17 AM CDT [facility] POTASSIUM S/P/B 4.2 3.5 - 5.1 MMOL/L 05/25/2024 11:17 AM CDT [facility] CHLORIDE S/P/B 104 100 - 108 MMOL/L 05/25/2024 11:17 AM CDT [facility] CO2 28.6 21 - 32 MMOL/L 05/25/2024 11:17 AM CDT [facility] CALCIUM S/P/B 9.4 8.5 - 10.1 MG/DL 05/25/2024 11:17 AM CDT [facility] BILIRUBIN TOTAL S/P/B 0.3 0.2 - 1.2 MG/DL 05/25/2024 11:17 AM CDT [facility] Comment: THIS ASSAY IS NOT RECOMMENDED FOR PATIENTS UNDERGOING TREATMENT WITH ELTROMBOPAG DUE TO THE POTENTIAL FOR FALSELY ELEVATED RESULTS. TOTAL PROTEIN S/P/B 8.0 6.4 - 8.2 G/DL 05/25/2024 11:17 AM CDT [facility] ALBUMIN S/P/B 2.8(L) 3.4 - 5.0 G/DL 05/25/2024 11:17 AM CDT [facility] AST 16 15 - 37 U/L 05/25/2024 11:17 AM T [facility] ALT 23 16 - 60 U/L 05/25/2024 11:17 AM T [facility] ALKALINE PHOSPHATASE S/P/B 69 50 - 136 U/L 05/25/2024 11:17 AM T [facility] ANION GAP 3.4(L) 5 - 15 MMOL/L 05/25/2024 11:17 AM T [facility] BUN CREATININE RATIO 20.7 6 - 26 05/25/2024 11:17 AM [facility] A/G RATIO 0.5(L) 1.0 - 2.0 RATIO 05/25/2024 11:17 AM [facility] GFR ESTIMATE >90 >90 ML/MIN/1.7 3 M2 05/25/2024 11:17 AM T [facility] Comment: NOTE: eGFR is not calculated for patients <18 years of age. This is an estimated GFR calculation using the new CKD EPI creatinine equation without race and so does not require a correction factor for race. This estimated GFR should not be used for calculating drug doses. 05/25/2024 10:2 8 AM CDT Brooke Mendoza DO LABORATORY Final Result [facility] [address] [place] [address], [place] [phone] * (ABNORMAL) CBC W/DIFF AUTOMATED (05/25/2024 10:28 AM CDT) WBC 6.45 4.5 - 11.0 x10'3/uL 05/25/2024 10:44 AM CDT [facility] RBC 4.17(L) 4.70 - 6.10 x10'6/uL 05/25/2024 10:44 AM CDT [facility] HGB 11.0(L) 14.0 - 18.0 G/DL 05/25/2024 10:44 AM CDT [facility] HCT 35.2(L) 43.0 - 54.0 % 05/25/2024 10:44 AM CDT [facility] MCV 84.4 80.0 - 94.0 FL 05/25/2024 10:44 AM CDT [facility] MCH 26.4(L) 27.0 - 31.0 PG 05/25/2024 10:44 AM CDT [facility] MCHC 31.3(L) 32.0 - 36.0 G/DL 05/25/2024 10:44 AM CDT [facility] RDW 14.6(H) 11.5 - 14.5 % 05/25/2024 10:44 AM CDT [facility] PLT 282 130 - 400 x10'3/uL 05/25/2024 10:44 AM T [facility] MPV 9.7 9.3 - 12.2 FL 05/25/2024 10:44 AM CDT [facility] DIFFERENTIAL TYPE AUTOMATED DIFFERENTIAL 05/25/2024 10:44 AM CDT [facility] NEUTROPHILS % 47.6 % 05/25/2024 10:44 AM CDT [facility] LYMPHOCYTES % 42.3 % 05/25/2024 10:44 AM CDT [facility] MONOCYTES % 7.9 % 05/25/2024 10:44 AM CDT [facility] EOSINOPHILS 1.7 % 05/25/2024 10:44 AM CDT [facility] BASOPHILS 0.3 % 05/25/2024 10:44 AM CDT [facility] IMMATURE GRANS % 0.2 % 05/25/20 10:44 AM CDT [facility] ABS. NEUTROPHILS 3.07 1.80 - 7.70 x10'3/uL 05/25/2024 10:44 AM CDT [facility] ABS. LYMPHOCYTES 2.73 1.00 - 4.80 x10'3/uL 05/25/2024 10:44 AM CDT [facility] ABS. MONOCYTES 0.51 0.30 - 0.82 x10'3/uL 05/25/2024 10:44 AM CDT [facility] ABS. EOSINOPHILS 0.11 0.04 - 0.54 x10'3/uL 05/25/2024 10:44 AM CDT [facility] ABS. BASOPHILS 0.02 0.01 - 0.08 x10'3/uL 05/25/2024 10:44 AM CDT [facility] ABS. IMMATURE GRANULOCYTES 0.01 0.00 - 0.49 x10'3/uL 05/25/2024 10:44 AM CDT [facility] 05/25/2024 10:2 8 AM CDT Brooke Mendoza DO LABORATORY Final Result [facility] [address] [place] [address], [place] [phone] * TROPONIN, QUANT (05/25/2024 10:28 AM CDT) TROPONIN I HIGH SENSITIVITY 10 <79 ng/L 05/25/2024 11:17 AM CDT [facility] Comment: HIGH DOSES OF BIOTIN, TROPONIN-SPECIFIC AUTOANTIBODIES, AND ANTIBODY THERAPY CONTAINING HAMA MAY INTERFERE WITH THIS TEST RESULT. CORRELATION TO CLINICAL HISTORY AND PRESENTATION RECOMMENDED. 05/25/2024 10:2 8 AM CDT us Brooke Mendoza DO LABORATORY Final Result [facility] [address] [place] [address], * ECG 12 lead (05/25/2024 10:21 AM CDT) 05/25/2024 10:2 1 AM CDT Narrative [facility] - 05/25/2024 1:34 PM CDT ?[facility] ? [address] [facility] ? Test Date: ?2024-05-25 Pat Name: ? RAZA SOLORIO ?Department: ?? 40 ? Room: ? A216 Gender: ? Male ? Karate Black Belt: ?? AB : ?1960 ? Requested By: BROOKE MENDOZA Order Number: [id number] ? Reading MD: ?? Hamlet Leonardo ? Measurements Intervals ?[place] ? Rate: ? 75 ? P: ?58 TX: ? 149 ?QRS: ?19 QRSD: ? 81 ? T: ?267 QT: ? 371 ? QTc: ?416 ? Interpretive Statements SINUS RHYTHM MODERATE T-WAVE ABNORMALITY, CONSIDER INFERIOR ISCHEMIA [-0.1+ mV T WAVE IN II/aVF] Compared to ECG 05/24/2024 12:13:55 No significant changes Procedure Note Hamlet Leonardo MD - 05/25/2024 [facility] [address] [facility] Test Date: 2024-05-25 Pat Name: RAZA SOLORIO Department: 40 Room: A216 Gender: Male Karate Black Belt: AB : 1960 Requested By: BROOKE MENDOZA Order Number: [id number] Cynthia MD: Hamlet Leonardo Measurements Intervals [place] Rate: 75 P: 58 TX: 149 QRS: 19 QRSD: 81 T: 267 QT: 371 QTc: 416 Interpretive Statements SINUS RHYTHM MODERATE T-WAVE ABNORMALITY, CONSIDER INFERIOR ISCHEMIA [-0.1+ mV T WAVEIN II/aVF] Compared to ECG 05/24/2024 12:13:55 No significant changes Brooke Mendoza DO ECG ORDERABLES Final Result Performing Organization Address City/[facility]/ZIP Co de Phone Number [facility] * (ABNORMAL) POCT glucose (05/25/2024 10:17 AM CDT) [facility] GLUCOSE POC 155(H) 70 - 99 mg/dL 05/25/2024 10:30 AM CDT [facility] 05/25/2024 10:1 7 AM CDT Brooke Mendoza DO POCT ORDERABLES - DEVICE Final R esult Performing Organization Address City/[facility] Co de Phone Number [facility] [address] [place] [address], [place] [phone] * (ABNORMAL) CBC W/DIFF AUTOMATED (05/25/2024 7:14 AM CDT) [facility] WBC 6.02 4.5 - 11.0 x10'3/uL 05/25/2024 7:28 AM CDT [facility] RBC 3.96(L) 4.70 - 6.10 x10'6/uL 05/25/2024 7:28 AM CDT [facility] HGB 10.5(L) 14.0 - 18.0 G/DL 05/25/2024 7:28 AM CDT [facility] HCT 33.4(L) 43.0 - 54.0 % 05/25/2024 7:28 AM CDT [facility] MCV 84.3 80.0 - 94.0 FL 05/25/2024 7:28 AM CDT [facility] MCH 26.5(L) 27.0 - 31.0 PG 05/25/2024 7:28 AM CDT [facility] MCHC 31.4(L) 32.0 - 36.0 G/DL 05/25/2024 7:28 AM CDT [facility] RDW 14.5 11.5 - 14.5 % 05/25/2024 7:28 AM CDT [facility] PLT 270 130 - 400 x10'3/uL 05/25/2024 7:28 AM CDT [facility] MPV 9.2(L) 9.3 - 12.2 FL 05/25/2024 7:28 AM CDT [facility] DIFFERENTIAL TYPE AUTOMATED DIFFERENTIAL 05/25/2024 7:28 AM CDT [facility] NEUTROPHILS % 48.7 % 05/25/2024 7:28 AM CDT [facility] LYMPHOCYTES % 40.4 % 05/25/2024 7:28 AM CDT [facility] MONOCYTES % 8.1 % 05/25/2024 7:28 AM CDT [facility] EOSINOPHILS 2.2 % 05/25/2024 7:28 AM CDT [facility] BASOPHILS 0.3 % 05/25/2024 7:28 AM CDT [facility] IMMATURE GRANS % 0.3 % 05/25/20 7:28 AM CDT [facility] ABS. NEUTROPHILS 2.93 1.80 - 7.70 x10'3/uL 05/25/2024 7:28 AM CDT [facility] ABS. LYMPHOCYTES 2.43 1.00 - 4.80 x10'3/uL 05/25/2024 7:28 AM CDT [facility] ABS. MONOCYTES 0.49 0.30 - 0.82 x10'3/uL 05/25/2024 7:28 AM CDT [facility] ABS. EOSINOPHILS 0.13 0.04 - 0.54 x10'3/uL 05/25/2024 7:28 AM CDT [facility] ABS. BASOPHILS 0.02 0.01 - 0.08 x10'3/uL 05/25/2024 7:28 AM CDT [facility] ABS. IMMATURE GRANULOCYTES 0.02 0.00 - 0.49 x10'3/uL 05/25/2024 7:28 AM CDT [facility] 05/25/2024 7:14 AM CDT Al Cowart NP LABORATORY Final Result [facility] [address] [place] [address], * (ABNORMAL) COMPREHENSIVE METABOLIC PANEL (05/25/2024 7:14 AM CDT) GLUCOSE 143(H) 70 - 99 MG/DL 05/25/2024 7:57 AM CDT [facility] BUN 19(H) 7 - 18 MG/DL 05/25/2024 7:57 AM CDT [facility] CREATININE S/P/B 0.82 0.7 - 1.3 MG/DL 05/25/2024 7:57 AM CDT [facility] SODIUM S/P/B 135(L) 136 - 145 MMOL/L 05/25/2024 7:57 AM CDT [facility] POTASSIUM S/P/B 3.6 3.5 - 5.1 MMOL/L 05/25/2024 7:57 AM CDT [facility] CHLORIDE S/P/B 102 100 - 108 MMOL/L 05/25/2024 7:57 AM CDT [facility] CO2 27.4 21 - 32 MMOL/L 05/25/2024 7:57 AM CDT [facility] CALCIUM S/P/B 9.4 8.5 - 10.1 MG/DL 05/25/2024 7:57 AM CDT [facility] BILIRUBIN TOTAL S/P/B 0.3 0.2 - 1.2 MG/DL 05/25/2024 7:57 AM CDT [facility] Comment: THIS ASSAY IS NOT RECOMMENDED FOR PATIENTS UNDERGOING TREATMENT WITH ELTROMBOPAG DUE TO THE POTENTIAL FOR FALSELY ELEVATED RESULTS. TOTAL PROTEIN S/P/B 7.9 6.4 - 8.2 G/DL 05/25/2024 7:57 AM CDT [facility] ALBUMIN S/P/B 2.8(L) 3.4 - 5.0 G/DL 05/25/2024 7:57 AM CDT [facility] AST 12(L) 15 - 37 U/L 05/25/2024 7:57 AM T [facility] ALT 22 16 - 60 U/L 05/25/2024 7:57 AM CDT [facility] ALKALINE PHOSPHATASE S/P/B 68 50 - 136 U/L 05/25/2024 7:57 AM T [facility] ANION GAP 5.6 5 - 15 MMOL/L 05/25/2024 7:57 AM CDT [facility] BUN CREATININE RATIO 23.2 6 - 26 05/25/2024 7:57 AM CDT [facility] A/G RATIO 0.5(L) 1.0 - 2.0 RATIO 05/25/2024 7:57 AM CDT [facility] GFR ESTIMATE >90 >90 ML/MIN/1.7 3 M2 05/25/2024 7:57 AM CDT [facility] Comment: NOTE: eGFR is not calculated for patients <18 years of age. This is an estimated GFR calculation using the new CKD EPI creatinine equation without race and so does not require a correction factor for race. This estimated GFR should not be used for calculating drug doses. 05/25/2024 7:14 AM CDT us Al Cowart NP LABORATORY Final Result [facility] [address] [place] [address], * MAGNESIUM (05/25/2024 7:14 AM CDT) MAGNESIUM 1.8 1.8 - 2.4 MG/DL 05/25/2024 7:57 AM CDT [facility] 05/25/2024 7:14 AM CDT us Al Cowart NP LABORATORY Final Result [facility] [address] [place] [address], [place] [phone] * (ABNORMAL) POCT glucose (05/25/2024 5:48 AM CDT) GLUCOSE POC 150(H) 70 - 99 mg/dL 05/25/2024 6:02 AM CDT [facility] 05/25/2024 5:48 AM CDT us Brooke Mendoza DO POCT ORDERABLES - DEVICE Final R esult Performing Organization Address City/[facility]/ZIP Co de Phone Number [facility] [address] [place] [address], [place] [phone] * (ABNORMAL) POCT glucose (05/25/2024 12:24 AM CDT) GLUCOSE POC 138(H) 70 - 99 mg/dL 05/25/2024 12:57 AM CDT [facility] 05/25/2024 12:2 4 AM CDT Brooke Mendoza DO POCT ORDERABLES - DEVICE Final R esult Performing Organization Address City/[facility] Co de Phone Number [facility] [address] [place] [address], [place] [phone] * (ABNORMAL) POCT glucose (05/24/2024 9:10 PM CDT) GLUCOSE POC 131(H) 70 - 99 mg/dL 05/24/2024 9:23 PM CDT [facility] 05/24/2024 9:10 PM CDT Brooke Mendoza DO POCT ORDERABLES - DEVICE Final R esult Performing Organization Address City/[facility]/ZIP Co de Phone Number [facility] [address] [place] [address], [place] [phone] * (ABNORMAL) POCT glucose (05/24/2024 5:57 PM CDT) GLUCOSE POC 121(H) 70 - 99 mg/dL 05/24/2024 6:13 PM CDT [facility] 05/24/2024 5:57 PM CDT Brooke Mendoza DO POCT ORDERABLES - DEVICE Final R esult [facility] [address] [place] [address], [place] [phone] * (ABNORMAL) POCT glucose (05/24/2024 2:55 PM CDT) GLUCOSE POC 140(H) 70 - 99 mg/dL 05/24/2024 3:34 PM CDT [facility] 05/24/2024 2:5 5 PM CDT Brooke Mendoza DO POCT ORDERABLES - DEVICE Final R esult Performing Organization Address City/[facility] Co de Phone Number [facility] [address] [place] [address], [place] [phone] * (ABNORMAL) POCT glucose (05/24/2024 12:45 PM CDT) GLUCOSE POC 132(H) 70 - 99 mg/dL 05/24/2024 12:46 PM CDT [facility] 05/24/2024 12:4 5 PM CDT Brooke Mendoza DO POCT ORDERABLES - DEVICE Final R esult Performing Organization Address City/[facility]/ZIP Co de Phone Number [facility] [address] [place] [address], [place] [phone] * ECG 12 lead (05/24/2024 12:13 PM CDT) 05/24/2024 12:[address] [facility] - 05/24/2024 2:42 PM CDT ?[facility] ? [address] [facility] [address], [place] ? Test Date: ?2024-05-24 Pat Name: ? RAZA SOLORIO ?Department: ?? 40 ? Room: ? [id number] Gender: ? Male ? Karate Black Belt: ?? CDNG : ?1960 ? Requested By: BROOKE MENDOZA Order Number: [id number] ? Reading MD: ?? Hamlet Irizarryly ? Measurements Intervals ?[place] ? Rate: ? 75 ? P: ?35 TX: ? 145 ?QRS: ?19 QRSD: ? 81 ? T: ?-49 QT: ? 372 ? QTc: ?418 ? Interpretive Statements SINUS RHYTHM MODERATE T-WAVE ABNORMALITY, CONSIDER LATERAL ISCHEMIA [-0.1+ mV T WAVE IN I/aVL/V5/V6] MODERATE T-WAVE ABNORMALITY, CONSIDER INFERIOR ISCHEMIA [-0.1+ mV T WAVE IN II/aVF] Compared to ECG 05/22/2024 17:34:25 No significant changes Procedure Note Hamlet Leonardo MD - 05/24/[address] Test Date: 2024-05-24 Pat Name: RAZA SOLORIO Department: 40 Room: [facility] [place] Gender: Male Karate Black Belt: LAURA : 1960 Requested By: BROOKE MENDOZA Order Number: [id number] Cynthia MD: Hamlet Leonardo Measurements Intervals [place] Rate: 75 P: 35 TX: 145 QRS: 19 QRSD: 81 T: -49 QT: 372 QTc: 418 Interpretive Statements SINUS RHYTHM MODERATE T-WAVE ABNORMALITY, CONSIDER LATERAL ISCHEMIA [-0.1+ mV T WAVEIN I/aVL/V5/V6] MODERATE T-WAVE ABNORMALITY, CONSIDER INFERIOR ISCHEMIA [-0.1+ mV T WAVEIN II/aVF] Compared to ECG 05/22/2024 17:34:25 No significant changes us Brooke Mendoza DO ECG ORDERABLES Final Result [facility] * (ABNORMAL) CBC W/DIFF AUTOMATED (05/24/2024 8:16 AM CDT) [facility] WBC 6.54 4.5 - 11.0 x10'3/uL 05/24/2024 8:34 AM CDT [facility] RBC 3.92(L) 4.70 - 6.10 x10'6/uL 05/24/2024 8:34 AM CDT [facility] HGB 10.3(L) 14.0 - 18.0 G/DL 05/24/2024 8:34 AM CDT [facility] HCT 33.4(L) 43.0 - 54.0 % 05/24/2024 8:34 AM CDT [facility] MCV 85.2 80.0 - 94.0 FL 05/24/2024 8:34 AM CDT [facility] MCH 26.3(L) 27.0 - 31.0 PG 05/24/2024 8:34 AM CDT [facility] MCHC 30.8(L) 32.0 - 36.0 G/DL 05/24/2024 8:34 AM CDT [facility] RDW 14.6(H) 11.5 - 14.5 % 05/24/2024 8:34 AM CDT [facility] PLT 268 130 - 400 x10'3/uL 05/24/2024 8:34 AM CDT [facility] MPV 9.2(L) 9.3 - 12.2 FL 05/24/2024 8:34 AM CDT [facility] DIFFERENTIAL TYPE AUTOMATED DIFFERENTIAL 05/24/2024 8:34 AM CDT [facility] NEUTROPHILS % 47.2 % 05/24/2024 8:34 AM CDT [facility] LYMPHOCYTES % 42.7 % 05/24/2024 8:34 AM CDT [facility] MONOCYTES % 7.8 % 05/24/2024 8:34 AM CDT [facility] EOSINOPHILS 1.7 % 05/24/2024 8:34 AM CDT [facility] BASOPHILS 0.3 % 05/24/2024 8:34 AM CDT [facility] IMMATURE GRANS % 0.3 % 05/24/20 8:34 AM CDT [facility] ABS. NEUTROPHILS 3.09 1.80 - 7.70 x10'3/uL 05/24/2024 8:34 AM CDT [facility] ABS. LYMPHOCYTES 2.79 1.00 - 4.80 x10'3/uL 05/24/2024 8:34 AM CDT [facility] ABS. MONOCYTES 0.51 0.30 - 0.82 x10'3/uL 05/24/2024 8:34 AM CDT [facility] ABS. EOSINOPHILS 0.11 0.04 - 0.54 x10'3/uL 05/24/2024 8:34 AM CDT [facility] ABS. BASOPHILS 0.02 0.01 - 0.08 x10'3/uL 05/24/2024 8:34 AM CDT [facility] ABS. IMMATURE GRANULOCYTES 0.02 0.00 - 0.49 x10'3/uL 05/24/2024 8:34 AM T [facility] 05/24/2024 8:16 AM CDT us Al Cowart NP LABORATORY Final Result [facility] [address] [place] [address], [place] [phone] * (ABNORMAL) COMPREHENSIVE METABOLIC PANEL (05/24/2024 8:16 AM CDT) [facility] GLUCOSE 118(H) 70 - 99 MG/DL 05/24/2024 8:59 AM CDT [facility] BUN 23(H) 7 - 18 MG/DL 05/24/2024 8:59 AM CDT [facility] CREATININE S/P/B 0.88 0.7 - 1.3 MG/DL 05/24/2024 8:59 AM CDT [facility] SODIUM S/P/B 135(L) 136 - 145 MMOL/L 05/24/2024 8:59 AM CDT [facility] POTASSIUM S/P/B 3.6 3.5 - 5.1 MMOL/L 05/24/2024 8:59 AM CDT [facility] CHLORIDE S/P/B 103 100 - 108 MMOL/L 05/24/2024 8:59 AM CDT [facility] CO2 29.5 21 - 32 MMOL/L 05/24/2024 8:59 AM CDT [facility] CALCIUM S/P/B 9.7 8.5 - 10.1 MG/DL 05/24/2024 8:59 AM CDT [facility] BILIRUBIN TOTAL S/P/B 0.3 0.2 - 1.2 MG/DL 05/24/2024 8:59 AM CDT [facility] Comment: THIS ASSAY IS NOT RECOMMENDED FOR PATIENTS UNDERGOING TREATMENT WITH ELTROMBOPAG DUE TO THE POTENTIAL FOR FALSELY ELEVATED RESULTS. TOTAL PROTEIN S/P/B 8.1 6.4 - 8.2 G/DL 05/24/2024 8:59 AM CDT [facility] ALBUMIN S/P/B 3.0(L) 3.4 - 5.0 G/DL 05/24/2024 8:59 AM CDT [facility] AST 10(L) 15 - 37 U/L 05/24/2024 8:59 AM CDT [facility] ALT 21 16 - 60 U/L 05/24/2024 8:59 AM CDT [facility] ALKALINE PHOSPHATASE S/P/B 64 50 - 136 U/L 05/24/2024 8:59 AM CDT [facility] ANION GAP 2.5(L) 5 - 15 MMOL/L 05/24/2024 8:59 AM CDT [facility] BUN CREATININE RATIO 26.1(H) 6 - 26 05/24/2024 8:59 AM CDT [facility] A/G RATIO 0.6(L) 1.0 - 2.0 RATIO 05/24/2024 8:59 AM CDT [facility] GFR ESTIMATE >90 >90 ML/MIN/1.7 3 M2 05/24/2024 8:59 AM CDT [facility] Comment: NOTE: eGFR is not calculated for patients <18 years of age. This is an estimated GFR calculation using the new CKD EPI creatinine equation without race and so does not require a correction factor for race. This estimated GFR should not be used for calculating drug doses. 05/24/2024 8:16 AM CDT Al Cowart NP LABORATORY Final Result [facility] [address] [place] [address], * MAGNESIUM (05/24/2024 8:16 AM CDT) MAGNESIUM 1.9 1.8 - 2.4 MG/DL 05/24/2024 8:59 AM CDT [facility] 05/24/2024 8:16 AM CDT Al Cowart NP LABORATORY Final Result Performing Organization Address [facility] Co de Phone Number [facility] [address] [place] [phone], * (ABNORMAL) POCT glucose (05/24/2024 6:31 AM CDT) GLUCOSE POC 134(H) 70 - 99 mg/dL 05/24/2024 6:34 AM CDT [facility] 05/24/2024 6:31 AM CDT Brokoe Mendoza DO POCT ORDERABLES - DEVICE Final R esult Performing Organization Address [facility] Co de Phone Number [facility] [address] [place] [phone], * POCT glucose (05/23/2024 8:17 PM CDT) GLUCOSE POC 97 70 - 99 mg/dL 05/23/2024 9:05 PM CDT [facility] 05/23/2024 8:17 PM CDT Saige Reyes MD POCT ORDERABLES - DEVICE Fin al Result Performing Organization Address City/[facility]/ZIP Co de Phone Number [facility] [address] [place] [phone], [place] [phone] * CT HEAD WO CON (05/23/2024 5:42 PM CDT) Anatomical Region Laterality Modality Head Computed Tomogra phy 05/23/2024 7:35 PM CDT Impressions 05/23/2024 7:39 PM CDT IMPRESSION: Image quality is degraded by motion artifact, limiting the sensitivity of this exam. Within this limitation, no definite acute intracranial abnormalities identified. Senescent changes of global volume loss noted. Ordered By: SAIGE REYES Interpreted By: Mark Combs MD, 05/23/2024 7:35 PM Narrative 05/23/2024 7:39 PM CDT EXAM: ??CT HEAD WO CON DATE: 05/23/2024 5:33 PM INDICATION: Confusion. TECHNIQUE: Transverse images through the head were obtained without intravenous contrast. A radiation dose lowering technique was used for this procedure, which may include, but is not limited to, dose reduction technique, automated exposure control, the use of iterative reconstruction, ALARA (As Low As Reasonably Achievable) techniques, and Image Gently techniques. COMPARISON: No comparison. FINDINGS: Image quality is degraded by motion artifact. There is no evidence of acute intracranial hemorrhage. No evidence of abnormal intra or extra axial fluid collections. The ventricles are mildly prominent in size compatible with global volume loss. No evidence of mass, mass effect, or midline shift. No definite CT evidence of acute territorial infarction within limitations of motion. The bony calvarium is unremarkable. Included paranasal sinuses appear clear. Mastoid air cells appear clear. The globes and orbits are symmetric and grossly unremarkable. Procedure Note Mark Combs MD - 05/23/2024 EXAM: CT HEAD WO CON DATE: 05/23/2024 5:33 PM INDICATION: Confusion. TECHNIQUE: Transverse images through the head were obtained without intravenouscontrast. A radiation dose lowering technique was used for this procedure,which may include, but is not limited to, dose reduction technique,automated exposure control, the use of iterative reconstruction, ALARA (AsLow As Reasonably Achievable) techniques, and Image Gently techniques. COMPARISON: No comparison. FINDINGS: Image quality is degraded by motion artifact. There is no evidence ofacute intracranial hemorrhage. No evidence of abnormal intra or extraaxial fluid collections. The ventricles are mildly prominent in sizecompatible with global volume loss. No evidence of mass, mass effect, ormidline shift. No definite CT evidence of acute territorial infarctionwithin limitations of motion. The bony calvarium is unremarkable. Includedparanasal sinuses appear clear. Mastoid air cells appear clear. The globesand orbits are symmetric and grossly unremarkable. IMPRESSION: Image quality is degraded by motion artifact, limiting the sensitivity ofthis exam. Within this limitation, no definite acute intracranialabnormalities identified. Senescent changes of global volume loss noted. Ordered By: SAIGE REYES Interpreted By: Mark Combs MD, 05/23/2024 7:35 PM Saige Reyes MD CT Final Result * POCT glucose (05/23/2024 3:37 PM CDT) GLUCOSE POC 93 70 - 99 mg/dL 05/23/2024 3:52 PM CDT [facility] 05/23/2024 3:37 PM CDT Saige Reyes MD POCT ORDERABLES - DEVICE Fin al Result [facility] [address] [place] [address], * USE ECHO 2D FU LTD W CON (05/23/2024 12:33 PM CDT) Anatomical Region Laterality Modality NA Echocardiogram 05/23/2024 12:1 1 PM CDT Narrative 05/23/2024 2:21 PM CDT ?Echocardiography Report Pat.Name: ??RAZA SOLORIO ?Pat.ID: ?[id number] ? St.Date: ?? 05/23/2024 ?Exam Time: 12:11:00 PM ? Study Type:ECHO WITH DOPPLER LIMITED Height: ?76 in ? Weight: ?259 lb ?BSA: ? 2.47 m2 ?Age: ??1960,63Y ?Sex: ? M ? BP: ?134/94 ?HR: ?77 bpm ? Sonogrphr: Ruthann Bryant [facility] Pat. Stat.:Inpatient ? Room: ?411 ? Reason for Study:Near syncope ? History / Clinical:Previous Echo 01/24/2024. Procedures: 2D, Doppler, Color Flow, Definity was used to enhance endocardial definition. Intraveneous saline contrast was used to help determine presence of intracardiac shunting. Limited Exam. Race: ?B ? ++++++++++++++++++++++++++++++++++++ SUMMARY: ++++++++++++++++++++++++++++++++++++ The left ventricular size is normal. Estimated left ventricular ejection fraction is 70%. Mild concentric left ventricular hypertrophy. There is mild hypokinesis of the mid to basal inferolateral wall and the basal inferior wall.. The agitated saline injection showed no clear evidence of shunting into the left atrium, consistent with no patent foramen ovale. Aortic root is moderately dilated, 4.4cm. Ascending aorta is moderately dilated, 4.4cm. Mild aortic regurgitation. ++++++++++++++++++++++++++++++++++++ FINDINGS: ++++++++++++++++++++++++++++++++++++ LV: ? The left ventricular size is normal. Estimated left ?ventricular ejection fraction is 70%. Mild concentric left ?ventricular hypertrophy. WM: ? There is mild hypokinesis of the mid to basal inferolateral ?wall and the basal inferior wall.. IAS: ?The agitated saline injection showed no clear evidence of ?shunting into the left atrium, consistent with no patent ?foramen ovale. MAXIME: ? No evidence of pericardial effusion. AO: ? Aortic root is moderately dilated, 4.4cm. Ascending aorta is ?moderately dilated, 4.4cm. AV: ? The aortic valve is trileaflet. No evidence of aortic valve ?stenosis. Mild aortic regurgitation. MV: ? No evidence of significant mitral regurgitation. No evidence ?of mitral stenosis. TV: ? No evidence of tricuspid regurgitation. No evidence of ?tricuspid valve stenosis. ++++++++++++++++++++++++++++++++++++ MEASUREMENTS: ++++++++++++++++++++++++++++++++++++ ?2D Left Ventricle ?? LVIDd ? 4.64 cm ?? (3.6-5.2) LngAxs ? 7.7 cm ?? LVIDs ? 3.13 cm ?? (2.3-3.9) LV ESV ?31.7 ml ?? LngAxd ?9.18 cm ?LV EF ? 71.4 % ?? LV EDV ? 111 ml ?LV SV ? 79.3 ml ?? LVPW ?? LVPWd ? 1.11 cm ? Ventricular Septum ?? IVSd ? 1.3 cm ? Aorta ?? Ao Rtd ? 4.4 cm ? Ao Asc ? 4.4 cm ?? (2.1-3.4)+* Ratios ?? IVS <Electronic Signature> 05/23/2024 02:21 PM Jayjay Diaz M.D. Procedure Note Jayjay Diaz MD - 05/23/2024 Echocardiography Report Pat.Name: RAZA SOLORIO Pat.ID: [id number] .Date: 05/23/2024 Exam Time: 12:11:00 PM Study Type:ECHO WITH DOPPLER LIMITED Height: 76 in Weight: 259 lb BSA: 2.47 m2 Age: 12 1960,63Y Sex: M BP: 134/94 HR: 77 bpm Sonogrphr: Ruthann Bryant [facility] Pat. Stat.:Inpatient Room: [facility] Reason for Study:Near syncope History / Clinical:Previous Echo 01/24/2024. Procedures: 2D, Doppler, Color Flow, Definity was used to enhance endocardial definition. Intraveneous saline contrast was used to help determine presence of intracardiac shunting. Limited Exam. Race: B ++++++++++++++++++++++++++++++++++++ SUMMARY: ++++++++++++++++++++++++++++++++++++ The left ventricular size is normal. Estimated left ventricular ejection fraction is 70%. Mild concentric left ventricular hypertrophy. There is mild hypokinesis of the mid to basal inferolateral wall and the basal inferior wall.. The agitated saline injection showed no clear evidence of shunting into the left atrium, consistent with no patent foramen ovale. Aortic root is moderately dilated, 4.4cm. Ascending aorta is moderately dilated, 4.4cm. Mild aortic regurgitation. ++++++++++++++++++++++++++++++++++++ FINDINGS: ++++++++++++++++++++++++++++++++++++ LV: The left ventricular size is normal. Estimated left ventricular ejection fraction is 70%. Mild concentric left ventricular hypertrophy. WM: There is mild hypokinesis of the mid to basal inferolateral wall and the basal inferior wall.. IAS: The agitated saline injection showed no clear evidence of shunting into the left atrium, consistent with no patent foramen ovale. MAXIME: No evidence of pericardial effusion. AO: Aortic root is moderately dilated, 4.4cm. Ascending aorta is moderately dilated, 4.4cm. AV: The aortic valve is trileaflet. No evidence of aortic valve stenosis. Mild aortic regurgitation. MV: No evidence of significant mitral regurgitation. No evidence of mitral stenosis. TV: No evidence of tricuspid regurgitation. No evidence of tricuspid valve stenosis. ++++++++++++++++++++++++++++++++++++ MEASUREMENTS: ++++++++++++++++++++++++++++++++++++ 2D Left Ventricle LVIDd 4.64 cm (3.6-5.2) LngAxs 7.7 cm LVIDs 3.13 cm (2.3-3.9) LV ESV 31.7 ml LngAxd 9.18 cm LV EF 71.4 % LV EDV 111 ml LV SV 79.3 ml LVPW LVPWd 1.11 cm Ventricular Septum IVSd 1.3 cm Aorta Ao Rtd 4.4 cm Ao Asc 4.4 cm (2.1-3.4)+* Ratios IVS <Electronic Signature> 05/23/2024 02:21 PM Jayjay Diaz M.D. Al Cowart NP ECHO Final Result * POCT glucose (05/23/2024 10:31 AM CDT) GLUCOSE POC 99 70 - 99 mg/dL 05/23/2024 10:36 AM CDT [facility] 05/23/2024 10:3 1 AM CDT Saige Reyes MD POCT ORDERABLES - DEVICE Fin al Result [facility] [address] [place] [address], [place] [phone] * (ABNORMAL) CBC W/DIFF AUTOMATED (05/23/2024 6:32 AM CDT) [facility] WBC 7.42 4.5 - 11.0 x10'3/uL 05/23/2024 6:51 AM CDT [facility] RBC 4.00(L) 4.70 - 6.10 x10'6/uL 05/23/2024 6:51 AM CDT [facility] HGB 10.4(L) 14.0 - 18.0 G/DL 05/23/2024 6:51 AM CDT [facility] HCT 34.4(L) 43.0 - 54.0 % 05/23/2024 6:51 AM CDT [facility] MCV 86.0 80.0 - 94.0 FL 05/23/2024 6:51 AM CDT [facility] MCH 26.0(L) 27.0 - 31.0 PG 05/23/2024 6:51 AM CDT [facility] MCHC 30.2(L) 32.0 - 36.0 G/DL 05/23/2024 6:51 AM CDT [facility] RDW 14.6(H) 11.5 - 14.5 % 05/23/2024 6:51 AM CDT [facility] PLT 268 130 - 400 x10'3/uL 05/23/2024 6:51 AM CDT [facility] MPV 9.4 9.3 - 12.2 FL 05/23/2024 6:51 AM CDT [facility] DIFFERENTIAL TYPE AUTOMATED DIFFERENTIAL 05/23/2024 6:51 AM CDT [facility] NEUTROPHILS % 58.0 % 05/23/2024 6:51 AM CDT [facility] LYMPHOCYTES % 32.6 % 05/23/2024 6:51 AM CDT [facility] MONOCYTES % 7.5 % 05/23/2024 6:51 AM CDT [facility] EOSINOPHILS 1.3 % 05/23/2024 6:51 AM CDT [facility] BASOPHILS 0.3 % 05/23/2024 6:51 AM CDT [facility] IMMATURE GRANS % 0.3 % 05/23/20 6:51 AM CDT [facility] ABS. NEUTROPHILS 4.30 1.80 - 7.70 x10'3/uL 05/23/2024 6:51 AM CDT [facility] ABS. LYMPHOCYTES 2.42 1.00 - 4.80 x10'3/uL 05/23/2024 6:51 AM CDT [facility] ABS. MONOCYTES 0.56 0.30 - 0.82 x10'3/uL 05/23/2024 6:51 AM CDT [facility] ABS. EOSINOPHILS 0.10 0.04 - 0.54 x10'3/uL 05/23/2024 6:51 AM CDT [facility] ABS. BASOPHILS 0.02 0.01 - 0.08 x10'3/uL 05/23/2024 6:51 AM CDT [facility] ABS. IMMATURE GRANULOCYTES 0.02 0.00 - 0.49 x10'3/uL 05/23/2024 6:51 AM CDT [facility] 05/23/2024 6:32 AM CDT Al Cowart NP LABORATORY Final Result [facility] [address] [place] [address], [place] [phone] * (ABNORMAL) COMPREHENSIVE METABOLIC PANEL (05/23/2024 6:32 AM CDT) [facility] GLUCOSE 97 70 - 99 MG/DL 05/23/2024 7:43 AM CDT [facility] BUN 22(H) 7 - 18 MG/DL 05/23/2024 7:43 AM CDT [facility] CREATININE S/P/B 0.83 0.7 - 1.3 MG/DL 05/23/2024 7:43 AM CDT [facility] SODIUM S/P/B 136 136 - 145 MMOL/L 05/23/2024 7:43 AM CDT [facility] POTASSIUM S/P/B 3.7 3.5 - 5.1 MMOL/L 05/23/2024 7:43 AM CDT [facility] CHLORIDE S/P/B 105 100 - 108 MMOL/L 05/23/2024 7:43 AM CDT [facility] CO2 26.4 21 - 32 MMOL/L 05/23/2024 7:43 AM CDT [facility] CALCIUM S/P/B 9.2 8.5 - 10.1 MG/DL 05/23/2024 7:43 AM CDT [facility] BILIRUBIN TOTAL S/P/B 0.4 0.2 - 1.2 MG/DL 05/23/2024 7:43 AM CDT [facility] Comment: THIS ASSAY IS NOT RECOMMENDED FOR PATIENTS UNDERGOING TREATMENT WITH ELTROMBOPAG DUE TO THE POTENTIAL FOR FALSELY ELEVATED RESULTS. TOTAL PROTEIN S/P/B 7.6 6.4 - 8.2 G/DL 05/23/2024 7:43 AM CDT [facility] ALBUMIN S/P/B 2.8(L) 3.4 - 5.0 G/DL 05/23/2024 7:43 AM CDT [facility] AST 10(L) 15 - 37 U/L 05/23/2024 7:43 AM CDT [facility] ALT 22 16 - 60 U/L 05/23/2024 7:43 AM CDT [facility] ALKALINE PHOSPHATASE S/P/B 62 50 - 136 U/L 05/23/2024 7:43 AM CDT [facility] ANION GAP 4.6(L) 5 - 15 MMOL/L 05/23/2024 7:43 AM CDT [facility] BUN CREATININE RATIO 26.4(H) 6 - 26 05/23/2024 7:43 AM T [facility] A/G RATIO 0.6(L) 1.0 - 2.0 RATIO 05/23/2024 7:43 AM CDT [facility] GFR ESTIMATE >90 >90 ML/MIN/1.7 3 M2 05/23/2024 7:43 AM CDT [facility] Comment: NOTE: eGFR is not calculated for patients <18 years of age. This is an estimated GFR calculation using the new CKD EPI creatinine equation without race and so does not require a correction factor for race. This estimated GFR should not be used for calculating drug doses. 05/23/2024 6:32 AM CDT us Al Cowart NP LABORATORY Final Result [facility] [address] [place] [address], [place] [phone] * (ABNORMAL) MAGNESIUM (05/23/2024 6:32 AM CDT) MAGNESIUM 1.6(L) 1.8 - 2.4 MG/DL 05/23/2024 7:43 AM CDT [facility] 05/23/2024 6:32 AM CDT us Al Cowart NP LABORATORY Final Result Performing Organization Address [facility] Co de Phone Number [facility] [address] [place] [address], [place] [phone] * (ABNORMAL) POCT glucose (05/23/2024 5:38 AM CDT) GLUCOSE POC 102(H) 70 - 99 mg/dL 05/23/2024 6:04 AM CDT [facility] 05/23/2024 5:38 AM CDT Aquilino Melendez MD POCT ORDERABLES - DEVICE Fi nal Result Performing Organization Address [facility] Co de Phone Number [facility] [address] [place] [address], [place] [phone] * POCT glucose (05/22/2024 11:34 PM CDT) GLUCOSE POC 85 70 - 99 mg/dL 05/22/2024 11:49 PM CDT [facility] 05/22/2024 11:3 4 PM CDT Aqiulino Melendez MD POCT ORDERABLES - DEVICE Fi nal Result Performing Organization Address City/[facility] Co de Phone Number [facility] [address] [place] [address], [place] [phone] * CTA CHEST PE PROTOCOL (05/22/2024 11:13 PM CDT) Anatomical Region Laterality Modality Chest Computed Tomogra phy 05/22/2024 11:1 4 PM CDT Impressions 05/22/2024 11:17 PM CDT IMPRESSION: 1. ??Slightly limited evaluation for pulmonary embolism, but no pulmonary embolism is identified. 2. ??No acute process. 2. ??Prominent coronary arterial calcification. Referred By: ?? Interpreted By: Zay Tompkins MD, 05/22/2024 11:14 PM Narrative 05/22/2024 11:17 PM CDT INDICATION: Elevated d-dimer. ??Near syncope. COMPARISON: None. TECHNIQUE: Axial images were obtained through the thorax following intravenous contrast administration. ??Additional images were reconstructed in the coronal plane. 3D slab maximum intensity projection (MIP) reformats were obtained and reviewed. DOSE OPTIMIZATION: This facility uses dose optimization techniques as appropriate to perform exams, including at least one of the following techniques: 1. Automated exposure control. 2. Adjustment of the mA and/or kV according to patient size (this includes techniques or standardized protocols for targeted exams where dose is matched to the indication/reason for exam, i.e. extremities or head). 3. Use of iterative reconstructive technique. FINDINGS: Pulmonary artery and thoracic aorta: Evaluation for pulmonary embolism in the smaller, more peripheral pulmonary arteries is slightly limited due to a suboptimal contrast bolus. ??Otherwise, no pulmonary embolism is seen. There is no thoracic aortic dissection or aneurysm. ??There are mild atherosclerotic calcifications of the thoracic aorta. Heart: Normal in size and no pericardial effusion. ??There are prominent coronary arterial calcifications. Mediastinum: There are calcified mediastinal lymph nodes, consistent with prior granulomatous disease. ??No enlarged lymph nodes are identified. There are no masses. Lungs: No pulmonary nodules or masses. No airspace disease. No pleural effusion. No pneumothorax. Chest wall: Unremarkable. Osseous Structures: There is no bony destructive process. Upper Abdomen: A percutaneous gastrostomy tube is visualized extending into the gastric lumen. Procedure Note Zay Tompkins MD - 05/22/2024 INDICATION: Elevated d-dimer. Near syncope. COMPARISON: None. TECHNIQUE: Axial images were obtained through the thorax followingintravenous contrast administration. Additional images were reconstructedin the coronal plane. 3D slab maximum intensity projection (MIP) reformatswere obtained and reviewed. DOSE OPTIMIZATION: This facility uses dose optimization techniques asappropriate to perform exams, including at least one of the followingtechniques: 1. Automated exposure control. 2. Adjustment of the mA and/or kV according to patient size (this includestechniques or standardized protocols for targeted exams where dose ismatched to the indication/reason for exam, i.e. extremities or head). 3. Use of iterative reconstructive technique. FINDINGS: Pulmonary artery and thoracic aorta: Evaluation for pulmonary embolism inthe smaller, more peripheral pulmonary arteries is slightly limited due toa suboptimal contrast bolus. Otherwise, no pulmonary embolism is seen.There is no thoracic aortic dissection or aneurysm. There are mildatherosclerotic calcifications of the thoracic aorta. Heart: Normal in size and no pericardial effusion. There are prominentcoronary arterial calcifications. Mediastinum: There are calcified mediastinal lymph nodes, consistent withprior granulomatous disease. No enlarged lymph nodes are identified.There are no masses. Lungs: No pulmonary nodules or masses. No airspace disease. No pleuraleffusion. No pneumothorax. Chest wall: Unremarkable. Osseous Structures: There is no bony destructive process. Upper Abdomen: A percutaneous gastrostomy tube is visualized extendinginto the gastric lumen. IMPRESSION: 1. Slightly limited evaluation for pulmonary embolism, but no pulmonaryembolism is identified. 2. No acute process. 2. Prominent coronary arterial calcification. Referred By: Interpreted By: Zay Tompkins MD, 05/22/2024 11:14 PM us Aquilino Melendez MD CT Final Resul t * TROPONIN, QUANT (05/22/2024 8:20 PM CDT) TROPONIN I HIGH SENSITIVITY 10 <79 ng/L 05/22/2024 8:52 PM CDT [facility] Comment: HIGH DOSES OF BIOTIN, TROPONIN-SPECIFIC AUTOANTIBODIES, AND ANTIBODY THERAPY CONTAINING HAMA MAY INTERFERE WITH THIS TEST RESULT. CORRELATION TO CLINICAL HISTORY AND PRESENTATION RECOMMENDED. 05/22/2024 8:20 PM CDT us Mikel Simpson MD LABORATORY Final Result [facility] [address] [place] [address], [place] [phone] * (ABNORMAL) URINALYSIS (05/22/2024 6:32 PM CDT) SPECIMEN TYPE URINE STRAIGHT CATH 05/22/2024 6:32 PM CDT [facility] COLOR (U) YELLOW 05/22/2024 7:19 PM CDT [facility] TRANSPARENCY CLEAR 05/22/2024 7:19 PM CDT [facility] SPECIFIC GRAVITY (U) 1.026 1.001 - 1.030 05/22/2024 7:19 PM CDT [facility] U PH 6.5 5.0 - 9.0 05/22/2024 7:19 PM CDT [facility] LEUKOCYTES (U) NEGATIVE NEGATIVE 05/22/2024 7:19 PM CDT [facility] NITRITES NEGATIVE NEGATIVE 05/22/2024 7:19 PM CDT [facility] PROTEIN RANDOM (U) 10 <30 MG/DL 05/22/2024 7:19 PM CDT [facility] GLUCOSE (U) NORMAL NORMAL MG/DL 05/22/2024 7:19 PM CDT [facility] KETONES MG/DL (U) NEGATIVE NEGATIVE MG/DL 05/22/2024 7:19 PM CDT [facility] UROBILINOGEN 2.0(A) NORMAL MG/DL 05/22/2024 7:19 PM CDT [facility] BILIRUBIN (U) NEGATIVE NEGATIVE MG/DL 05/22/2024 7:19 PM CDT [facility] BLOOD (U) NEGATIVE NEGATIVE 05/22/2024 7:19 PM CDT [facility] URINE, STRAIGHT CATH 05/22/2024 6:32 PM CDT Mikel Simpson MD URINE ORDERABLES Final Result Performing Organization Address City/[facility]/ZIP Co de Phone Number [facility] [address] [place] [address], * (ABNORMAL) HEMOGLOBIN, GLYCOSYLATED (05/22/2024 6:25 PM CDT) HGB A1C 7.4(H) <5.7 % 05/23/2024 1:29 AM CDT [facility] Comment: ADA GUIDELINES 2010 5.7 TO 6.4% INCREASED RISK OF DIABETES > OR = 6.5% CONSISTENT WITH DIABETES ESTIMATED AVG GLUCOSE 166 mg/dL 05/23/2024 1:29 AM CDT [facility] 05/22/2024 6:25 PM CDT Al Cowart NP LABORATORY Final Result Performing Organization Address [facility] Co de Phone Number [facility] [address] [place] [address], * (ABNORMAL) D-DIMER, QUANTITATIVE (05/22/2024 6:25 PM CDT) D-DIMER 1,229(HH) 0 - 500 ng{FEU}/mL 05/22/2024 10:11 PM CDT [facility] Comment: D-Dimer values less than or equal to 500 ng/mL FEU have a negative predictive value of >95% for exclusion of deep vein thrombosis and pulmonary embolism. In patients over 50 (who tend to have higher normal baseline D-Dimer values), recent studies suggest age-adjusted D-Dimer cutoff values (calculated as: age [years] x 10 ng/mL) result in equivalent outcomes and no additional false negative findings. Successful Call: DDIMR called 05/22/2024 10:12 PM to EMERGENCY ROOM ([id number]/CHAITANYA DAVID) by [id number]. 05/22/2024 6:25 PM CDT Aquilino Melendez MD LABORATORY Final Resul t Performing Organization Address City/[facility] Co de Phone Number [facility] [address] [place] [address], * TROPONIN, QUANT (05/22/2024 6:25 PM CDT) TROPONIN I HIGH SENSITIVITY 10 <79 ng/L 05/22/2024 6:59 PM CDT [facility] Comment: HIGH DOSES OF BIOTIN, TROPONIN-SPECIFIC AUTOANTIBODIES, AND ANTIBODY THERAPY CONTAINING HAMA MAY INTERFERE WITH THIS TEST RESULT. CORRELATION TO CLINICAL HISTORY AND PRESENTATION RECOMMENDED. 05/22/2024 6:25 PM CDT Mikel Simpson MD LABORATORY Final Result Performing Organization Address [facility] Co de Phone Number [facility] [address] [place] [address], [place] [phone] * LACTIC ACID W REFLEX (SEPSIS) (05/22/2024 6:25 PM CDT) LACTIC ACID VENOUS 1.3 0.4 - 2.0 MMOL/L 05/22/2024 6:59 PM CDT [facility] 05/22/2024 6:25 PM CDT Mikel Simpson MD LABORATORY Final Result Performing Organization Address City/[facility]/ZIP Co de Phone Number [facility] [address] [place] [address], [place] [phone] * (ABNORMAL) COMPREHENSIVE METABOLIC PANEL (05/22/2024 6:25 PM CDT) [facility] GLUCOSE 115(H) 70 - 99 MG/DL 05/22/2024 6:59 PM CDT [facility] BUN 21(H) 7 - 18 MG/DL 05/22/2024 6:59 PM CDT [facility] CREATININE S/P/B 0.94 0.7 - 1.3 MG/DL 05/22/2024 6:59 PM CDT [facility] SODIUM S/P/B 136 136 - 145 MMOL/L 05/22/2024 6:59 PM CDT [facility] POTASSIUM S/P/B 4.1 3.5 - 5.1 MMOL/L 05/22/2024 6:59 PM CDT [facility] CHLORIDE S/P/B 102 100 - 108 MMOL/L 05/22/2024 6:59 PM CDT [facility] CO2 26.9 21 - 32 MMOL/L 05/22/2024 6:59 PM CDT [facility] CALCIUM S/P/B 9.8 8.5 - 10.1 MG/DL 05/22/2024 6:59 PM CDT [facility] BILIRUBIN TOTAL S/P/B 0.3 0.2 - 1.2 MG/DL 05/22/2024 6:59 PM CDT [facility] Comment: THIS ASSAY IS NOT RECOMMENDED FOR PATIENTS UNDERGOING TREATMENT WITH ELTROMBOPAG DUE TO THE POTENTIAL FOR FALSELY ELEVATED RESULTS. TOTAL PROTEIN S/P/B 8.6(H) 6.4 - 8.2 G/DL 05/22/2024 6:59 PM CDT [facility] ALBUMIN S/P/B 3.0(L) 3.4 - 5.0 G/DL 05/22/2024 6:59 PM CDT [facility] AST 11(L) 15 - 37 U/L 05/22/2024 6:59 PM CDT [facility] ALT 25 16 - 60 U/L 05/22/2024 6:59 PM CDT [facility] ALKALINE PHOSPHATASE S/P/B 65 50 - 136 U/L 05/22/2024 6:59 PM CDT [facility] ANION GAP 7.1 5 - 15 MMOL/L 05/22/2024 6:59 PM CDT [facility] BUN CREATININE RATIO 22.4 6 - 26 05/22/2024 6:59 PM CDT [facility] A/G RATIO 0.5(L) 1.0 - 2.0 RATIO 05/22/2024 6:59 PM CDT [facility] GFR ESTIMATE 90(L) >90 ML/MIN/1.7 3 M2 05/22/2024 6:59 PM CDT [facility] Comment: NOTE: eGFR is not calculated for patients <18 years of age. This is an estimated GFR calculation using the new CKD EPI creatinine equation without race and so does not require a correction factor for race. This estimated GFR should not be used for calculating drug doses. 05/22/2024 6:25 PM CDT us Mikel Simpson MD LABORATORY Final Result [facility] [address] [place] [address], [place] [phone] * PARTIAL THROMBOPLASTIN TIME,PTT (05/22/2024 6:25 PM CDT) PTT 34.4 25.1 - 36.5 SEC 05/22/2024 6:59 PM CDT [facility] 05/22/2024 6:25 PM CDT us Mikel Simpson MD LABORATORY Final Result Performing Organization Address [facility] Co de Phone Number [facility] [address] [place] [address], * PROTIME/INR, VENOUS (05/22/2024 6:25 PM CDT) PROTIME 12.7 10.2 - 12.9 SEC 05/22/2024 6:59 PM CDT [facility] INR 1.1 05/22/2024 6:59 PM CDT [facility] Comment: Recommended INR Therapeutic Goals: ??2.0-3.0 Routine Therapy ??2.5-3.5 Mechanical Prosthetic Valves (High Risk) 05/22/2024 6:25 PM CDT Mikel Simpson MD LABORATORY Final Result Performing Organization Address [facility] de Phone Number [facility] [address] [place] [address], * (ABNORMAL) CBC W/DIFF AUTOMATED (05/22/2024 6:25 PM CDT) WBC 10.48 4.5 - 11.0 x10'3/uL 05/22/2024 6:41 PM CDT [facility] RBC 4.10(L) 4.70 - 6.10 x10'6/uL 05/22/2024 6:41 PM CDT [facility] HGB 11.1(L) 14.0 - 18.0 G/DL 05/22/2024 6:41 PM CDT [facility] HCT 35.6(L) 43.0 - 54.0 % 05/22/2024 6:41 PM CDT [facility] MCV 86.8 80.0 - 94.0 FL 05/22/2024 6:41 PM CDT [facility] MCH 27.1 27.0 - 31.0 PG 05/22/2024 6:41 PM CDT [facility] MCHC 31.2(L) 32.0 - 36.0 G/DL 05/22/2024 6:41 PM CDT [facility] RDW 14.6(H) 11.5 - 14.5 % 05/22/2024 6:41 PM CDT [facility] PLT 288 130 - 400 x10'3/uL 05/22/2024 6:41 PM CDT [facility] MPV 9.6 9.3 - 12.2 FL 05/22/2024 6:41 PM CDT [facility] DIFFERENTIAL TYPE AUTOMATED DIFFERENTIAL 05/22/2024 6:41 PM CDT [facility] NEUTROPHILS % 62.5 % 05/22/2024 6:41 PM CDT [facility] LYMPHOCYTES % 28.7 % 05/22/2024 6:41 PM CDT [facility] MONOCYTES % 7.2 % 05/22/2024 6:41 PM CDT [facility] EOSINOPHILS 1.0 % 05/22/2024 6:41 PM CDT [facility] BASOPHILS 0.3 % 05/22/2024 6:41 PM CDT [facility] IMMATURE GRANS % 0.3 % 05/22/20 6:41 PM CDT [facility] ABS. NEUTROPHILS 6.56 1.80 - 7.70 x10'3/uL 05/22/2024 6:41 PM CDT [facility] ABS. LYMPHOCYTES 3.01 1.00 - 4.80 x10'3/uL 05/22/2024 6:41 PM CDT [facility] ABS. MONOCYTES 0.75 0.30 - 0.82 x10'3/uL 05/22/2024 6:41 PM CDT [facility] ABS. EOSINOPHILS 0.10 0.04 - 0.54 x10'3/uL 05/22/2024 6:41 PM CDT [facility] ABS. BASOPHILS 0.03 0.01 - 0.08 x10'3/uL 05/22/2024 6:41 PM CDT [facility] ABS. IMMATURE GRANULOCYTES 0.03 0.00 - 0.49 x10'3/uL 05/22/2024 6:41 PM CDT [facility] 05/22/2024 6:25 PM CDT Mikel Simpson MD LABORATORY Final Result Performing Organization Address City/State/[facility] Co de Phone Number [facility] [address] [address], [place] [phone] * EKG Reading (05/22/2024 5:42 PM CDT) Narrative Mikel Simpson MD - 05/22/2024 5:42 PM CDT Mikel Simpson MD ? 05/22/2024 10:13 PM EKG Reading Date/Time: 05/22/2024 5:42 PM Performed by: Mikel Simpson MD Authorized by: Mikel Simpson MD ??Interpreted by ED physician Comparison: not compared with previous ECG Rhythm: sinus rhythm Rate: normal BPM: 73 Comments: Normal sinus rhythm. ??Heart rate 73. ??Normal axis normal interval normal QRS nonspecific ST-T wave change. ??No old EKG to compare. Rhythm strip are interpreted 1734 Normal sinus rhythm. ??Heart rate 73. ??No ectopy us Mikel Simpson MD [place] [facility] Final Result * ECG 12 lead (05/22/2024 5:34 PM CDT) 05/22/2024 5:34 PM CDT Narrative [facility] - 05/23/2024 11:14 AM CDT ?[facility] ? [address] [place] ? Test Date: ?2024-05-22 Pat Name: ? RAZA SOLORIO ?Department: ?? 41 ? Room: ? A411 Gender: ? M ?Karate Black Belt: ?? AH : ?1960 ? Requested By: MIKEL SIMPSON Order Number: [id number] ? Reading MD: ?? Jayjay Diaz ? Measurements Intervals ?[place] ? Rate: ? 73 ? P: ?81 TX: ? 169 ?QRS: ?31 QRSD: ? 90 ? T: ?-54 QT: ? 384 ? QTc: ?425 ? Interpretive Statements SINUS RHYTHM LOW QRS VOLTAGE IN PRECORDIAL LEADS ??[QRS DEFLECTION < 1.0 mV IN CHEST LEADS] MODERATE T-WAVE ABNORMALITY, CONSIDER INFERIOR ISCHEMIA ??[-0.1+ mV T-WAVE IN II/aVF] No previous ECG available for comparison Procedure Note Jayjay Diaz MD - 05/23/[address] [facility] Test Date: 2024-05-22 Pat Name: RAZA SOLORIO Department: 41 Room: A411 Gender: M Karate Black Belt: JESUS : 1960 Requested By: MIKEL SIMPSON Order Number: [id number] Reading MD: Jayjay Diaz Measurements Intervals [place] Rate: 73 P: 81 TX: 169 QRS: 31 QRSD: 90 T: -54 QT: 384 QTc: 425 Interpretive Statements SINUS RHYTHM LOW QRS VOLTAGE IN PRECORDIAL LEADS [QRS DEFLECTION < 1.0 mV IN CHESTLEADS] MODERATE T-WAVE ABNORMALITY, CONSIDER INFERIOR ISCHEMIA [-0.1+ mV T-WAVEIN II/aVF] No previous ECG available for comparison us Mikel Simpson MD ECG ORDERABLES Final Result [facility] * XR CHEST PORTABLE (05/22/2024 5:29 PM CDT) Anatomical Region Laterality Modality Chest Radiographic Love ging 05/22/2024 5:41 PM CDT Impressions 05/22/2024 5:42 PM CDT =====IMPRESSION:===== No acute or focal infiltrates. Prominent heart size. Postoperative findings. Ordered By: MIKEL SIMPSON Interpreted By: Kodak Govea MD, 05/22/2024 5:41 PM Narrative 05/22/2024 5:42 PM CDT Examination: Chest x-ray 1 view Exam date/time: 05/22/2024 5:10 PM Reason For Exam: ??Near syncope ? Comparison: No previous. Technique: Upright AP view of the chest demonstrated. Findings: ??Heart size is prominent. Postoperative changes with wires along the sternum. Postsurgical clips are seen superimposed to the upper chest centrally along the superior margin of the aortic arch. In the lung parenchyma no focal or acute infiltrates. No pneumothorax or effusion. No acute bony abnormalities. Monitoring devices. Procedure Note Kodak Govea MD - 05/22/2024 Examination: Chest x-ray 1 view Exam date/time: 05/22/2024 5:10 PM Reason For Exam: Near syncope Comparison: No previous. Technique: Upright AP view of the chest demonstrated. Findings: Heart size is prominent. Postoperative changes with wires alongthe sternum. Postsurgical clips are seen superimposed to the upper chestcentrally along the superior margin of the aortic arch. In the lungparenchyma no focal or acute infiltrates. No pneumothorax or effusion. Noacute bony abnormalities. Monitoring devices. =====IMPRESSION:===== No acute or focal infiltrates. Prominent heart size. Postoperative findings. Ordered By: MIKEL SIMPSON Interpreted By: Kodak Govea MD, 05/22/2024 5:41 PM Mikel Simpson MD GENERAL IMAGING Final Result documented in this encounter Visit Diagnoses Diagnosis Near syncope- Primary Syncope and collapse Weakness Other malaise and fatigue Near syncope Syncope and collapse Cerebrovascular accident (CVA), unspecified mechanism ([facility]) Need for case management follow-up Confusion Unspecified psychosis documented in this encounter Admitting Diagnoses Diagnosis Near syncope Syncope and collapse Need for case management follow-up Confusion Unspecified psychosis documented in this encounter Administered Medications Inactive Administered Medications - up to 3 most recent administrations Medication Order MAR Action Action Date Dose Rate Site acetaminophen (TYLENOL) tablet 650 mg 650 mg, Tube, Every 4 hours PRN, Mild pain (Scale 1 - 3), Starting on Sun05/23/24 at 1413, Until 05/25/24 at 2110, Maximum dose of acetaminophen is 4000 mg from all sources in 24 hours. aspirin chewable tablet 81 mg 81 mg, Oral, Daily, First dose on 05/24/24 at 1015, Until Discontinued Given 05/24/2024 10:57 AM CDT 81 mg aspirin chewable tablet 81 mg 81 mg, Per G Tube, Daily, First dose (after last modification) on 05/25/24 at 0900, Until Discontinued Given 05/25/2024 1:21 PM CDT 81 mg atorvastatin (LIPITOR) tablet 80 mg 80 mg, Tube, Daily, First dose on 05/25/24 at 1115, Until Discontinued Given 05/25/2024 1:21 PM CDT 80 mg clopidogrel (PLAVIX) tablet 75 mg 75 mg, Oral, Daily, First dose on 05/24/24 at 1015, Until Discontinued Given 05/24/2024 10:57 AM CDT 75 mg clopidogrel (PLAVIX) tablet 75 mg 75 mg, Per G Tube, Daily, First dose (after last modification) on 05/25/24 at 0900, Until Discontinued Given 05/25/2024 1:22 PM CDT 75 mg famotidine (PEPCID) tablet 20 mg 20 mg, Per G Tube, Every 12 hours scheduled (2 times per day), First dose on Sun05/25/24 at 2100, Until Discontinued heparin (porcine) injection 5,000 Units 5,000 Units, Subcutaneous, Every 12 hours scheduled (2 times per day), First dose on Sun05/22/24 at 2330, Until Discontinued Given 05/24/2024 9:19 PM CDT 5,000 Units Left Lower Abdomen Given 05/24/2024 10:57 AM CDT 5,000 Units Right Lower Abdomen Given 05/23/2024 10:24 PM CDT 5,000 Units Left Lower Abdomen heparin (porcine) injection 5,000 Units 5,000 Units, Subcutaneous, Every 8 hours scheduled (3 times per day), First dose on Sun05/25/24 at 1400, Until Discontinued Given 05/25/2024 2:16 PM CDT 5,000 Units Left Lower Abdomen HYDROcodone-acetaminop hen (NORCO) 5-325 MG tablet 1 tablet 1 tablet, Tube, Every 4 hours PRN, Moderate pain (Scale 4 - 7), Starting on Sun05/23/24 at 1413, Until Sun05/25/24 at 2110, Maximum dose of acetaminophen is 4000 mg from all sources in 24 hours. insulin lispro (HUMALOG/ADMELOG) injection 0-16 Units 0-16 Units, Subcutaneous, 3 times daily before meals, First dose on Sun05/23/24 at 0700, Until Discontinued, Blood Glucose (USUAL Dosing): [Less than 70:? Initiate Hypoglycemia Standing Orders] [71-140: ? 0 units] [141-180:? 4 units] [181-220:? 6 units] [221-260:? 8 units] [261-300:? 10 units] [301-350:? 12 units] [351-400:? 14 units] [Greater than 400:? 16 units and Call Physician] insulin lispro (HUMALOG/ADMELOG) injection 0-8 Units 0-8 Units, Subcutaneous, Nightly at bedtime, First dose on Sun05/22/24 at 2330, Until Discontinued, Blood Glucose (USUAL Dosing): [Less than 70:? Initiate Hypoglycemia Standing Orders] [71-180:? 0 units] [181-220:? 3 units] [221-260:? 4 units] [261-300:? 5 units] [301-350:? 6 units] [351-400:? 7 units] [Greater than 400:? 8 units and Call Physician] iopamidol (ISOVUE-370) 76 % injection 100 mL 100 mL, Intravenous, IMG once as needed, Contrast, 1 dose, Starting on Sun05/25/24 at 1104, Until Sun05/25/24 at 1104 Given 05/25/2024 11:04 AM CDT 100 mLs iopamidol (ISOVUE-370) 76 % injection 80 mL 80 mL, Intravenous, IMG once as needed, Contrast, 1 dose, Starting on Loreta 05/22/24 at 2310, Until Sun05/22/24 at 2310 Given 05/22/2024 11:10 PM CDT 80 mLs Left Arm levETIRAcetam (KEPPRA) injection 500 mg 500 mg, Intravenous, Every 12 hours scheduled (2 times per day), First dose on Sun05/25/24 at 2100, Until Discontinued, For doses that require more than 2 vials to draw up, two or more syringes are required. Do NOT draw up more than 2 vials into a single syringe to acquire the dose. Administer over 5 minutes via slow IV push. magnesium sulfate IVPB 2 g 2 g, Intravenous, at 25 mL/hr, Once, 1 dose, On Sun05/23/24 at 1200 New Bag 05/23/2024 2:59 PM CDT 2 g 25 mL/hr naLOXone (NARCAN) injection 0.4 mg 0.4 mg, Intravenous, As needed, Opioid reversal, Starting on Sun05/22/24 at 2314, Until Sun05/25/24 at 211 ondansetron (ZOFRAN) injection 4 mg 4 mg, Intravenous, Every 8 hours PRN, Nausea, Vomiting, Starting on Sun05/22/24 at 2314, Until Sun05/25/24 at 211, IV push over 2-5 minutes. perflutren lipid microsphere (DEFINITY) injection 2 mL 2 mL, Intravenous, IMG once as needed, Contrast, 1 dose, Starting on Sun05/23/24 at 1233, Until Sun05/23/24 at 1223, Administer over 30-60 seconds. Follow with 10 mL saline flush. Given 05/23/2024 12:23 PM CDT 2 mLs polyethylene glycol (GLYCOLAX) packet 17 g 17 g, Per G Tube, Daily as needed, Constipation, Starting on Sun05/25/24 at 0618, Until Sun05/25/24 at 2110, If both senna and polyethylene glycol are ordered, use 1st; if no response by next dosing interval, go to next option. TF diabetic w/Fiber (GLUCERNA 1.2) liquid 0-100 mL/hr, Feeding Tube, Continuous, Starting on Sun05/23/24 at 1415, Until Sun05/25/24 at 2110, 1. Initiate continuous TF with Glucerna 1.2 KESHA via G-tube at 50 mL/hr and advance by 10 mL/hr every 4 hours to goal rate of 75 mL/hr. 2. Free water flush: 150 mL every 4 hours. 3. Provide 1 packet of Prosource BID via G-tube with free water flush. *CHECK product MANUALLY- barcode scanning not required* Rate/Dose Verify 05/25/2024 4:00 AM CDT 75 mL/hr 75 mL/hr Rate/Dose Verify 05/25/2024 1:00 AM CDT 75 mL/hr 75 mL/h r New Bag 05/24/2024 1:55 PM CDT 75 mL/hr 75 mL/hr documented in this encounter Active and Recently Administered Medications Times are shown in CDT. Scheduled Medication Order 05/23/2024 05/24/2024 05/25/2024 aspirin chewable tablet 81 mg (CANCELED) 81 mg, Oral, Daily, First dose on 05/24/24 at 1015, Until Discontinued 1057 (Given - Provider: Magali London V RN) aspirin chewable tablet 81 mg 81 mg, Per G Tube, Daily, First dose (after last modification) on 05/25/24 at 0900, Until Discontinued 1321 (Given - Provid er: Jia Castellanos RN) atorvastatin (LIPITOR) tablet 80 mg 80 mg, Tube, Daily, First dose on 05/25/24 at 1115, Until Discontinued 1321 (Given - Provid er: Jia Castellanos RN) clopidogrel (PLAVIX) tablet 75 mg (CANCELED) 75 mg, Oral, Daily, First dose on 05/24/24 at 1015, Until Discontinued 1057 (Given - Provider: Magali Hand RN) clopidogrel (PLAVIX) tablet 75 mg 75 mg, Per G Tube, Daily, First dose (after last modification) on 05/25/24 at 0900, Until Discontinued 1322 (Given - Provid er: Jia Castellanos RN) famotidine (PEPCID) tablet 20 mg 20 mg, Per G Tube, Every 12 hours scheduled (2 times per day), First dose on 05/25/24 at 2100, Until Discontinued 2100 (Canceled Entry - Provider: Automatic Discharge Provider - Comment: Automatically canceled at discontinue of medication order) heparin (porcine) injection 5,000 Units (CANCELED)(Linked Group 1) 5,000 Units, Subcutaneous, Every 12 hours scheduled (2 times per day), First dose on Loreta 05/22/24 at 2330, Until Discontinued 0015 (Given - Provider: Beckie Hartman RN)0856 (Given - Provider: Shabana Lynch RN)2224 (Given - Provider: Jn Parra RN) 1057 (Given - Provider: Magali Hand RN)2119 (Given - Provider: Sandra Lee RN) 1347 (Not Given - Provider: Jia Castellanos RN - Reason: Schedule Changed) heparin (porcine) injection 5,000 Units 5,000 Units, Subcutaneous, Every 8 hours scheduled (3 times per day), First dose on 05/25/24 at 1400, Until Discontinued 1416 (Given - Provid er: Jia Castellanos RN) insulin lispro (HUMALOG/ADMELOG) injection 0-16 Units(Linked Group 2) 0-16 Units, Subcutaneous, 3 times daily before meals, First dose on Sun05/23/24 at 0700, Until Discontinued, Blood Glucose (USUAL Dosing): [Less than 70:? Initiate Hypoglycemia Standing Orders] [71-140: ? 0 units] [141-180:? 4 units] [181-220:? 6 units] [221-260:? 8 units] [261-300:? 10 units] [301-350:? 12 units] [351-400:? 14 units] [Greater than 400:? 16 units and Call Physician] 0630 (Not Given - Provider: Beckie Hartman RN - Reason: Order parameters not met)1132 (Not Given - Provider: Shabana Lynch RN - Reason: NPO)1600 (Not Given - Provider: Shabana Lynch RN - Reason: Order parameters not met) 0655 (Not Given - Provider: Jn Parra RN - Reason: Order parameters not met)1357 (Not Given - Provider: Magali Hand RN - Reason: Order parameters not met)1603 (Not Given - Provider: Magali Hand RN - Reason: Order parameters not met) 0716 (Not Given - Provider: Sandra Lee RN - Reason: Patient/family declined)1330 (Not Given - Provider: Jia Castellanos RN - Reason: Order parameters not met - Comment: blood [id number])1745 (Not Given - Provider: Jia Castellanos RN - Reason: NPO) insulin lispro (HUMALOG/ADMELOG) injection 0-8 Units(Linked Group 2) 0-8 Units, Subcutaneous, Nightly at bedtime, First dose on Sun05/22/24 at 2330, Until Discontinued, Blood Glucose (USUAL Dosing): [Less than 70:? Initiate Hypoglycemia Standing Orders] [71-180:? 0 units] [181-220:? 3 units] [221-260:? 4 units] [261-300:? 5 units] [301-350:? 6 units] [351-400:? 7 units] [Greater than 400:? 8 units and Call Physician] 0017 (Not Given - Provider: Beckie Hartman RN - Reason: Order parameters not met)2116 (Not Given - Provider: Jn Parra RN - Reason: Order parameters not met) 2118 (Not Given - Provider: Sandra Lee RN - Reason: Order parameters not met - Comment: bs 131) 2099 (Canceled Entry - Provider: Automatic Discharge Provider - Comment: Automatically canceled at discontinue of medication order) levETIRAcetam (KEPPRA) injection 500 mg 500 mg, Intravenous, Every 12 hours scheduled (2 times per day), First dose on Sun05/25/24 at 2100, Until Discontinued, For doses that require more than 2 vials to draw up, two or more syringes are required. Do NOT draw up more than 2 vials into a single syringe to acquire the dose. Administer over 5 minutes via slow IV push. 2099 (Canceled Entry - Provider: Automatic Discharge Provider - Comment: Automatically canceled at discontinue of medication order) magnesium sulfate IVPB 2 g (COMPLETED) 2 g, Intravenous, at 25 mL/hr, Once, 1 dose, On Sun05/23/24 at 1200 1459 (New Bag - Provider: Shabana Lynch RN)1700 (Infusion Stop Time - Provider: Shabana Lynch RN) sodium chloride 0.9% bolus infusion 500 mL 500 mL, Intravenous, Administer over 30 Minutes, Once, 1 dose, On Sun05/22/24 at 1715 Continuous Medication Order 05/23/2024 05/24/2024 05/25/2024 TF diabetic w/Fiber (GLUCERNA 1.2) liquid 0-100 mL/hr, Feeding Tube, Continuous, Starting on Sun05/23/24 at 1415, Until Sun05/25/24 at 2110, 1. Initiate continuous TF with Glucerna 1.2 KESHA via G-tube at 50 mL/hr and advance by 10 mL/hr every 4 hours to goal rate of 75 mL/hr. 2. Free water flush: 150 mL every 4 hours. 3. Provide 1 packet of Prosource BID via G-tube with free water flush. *CHECK product MANUALLY- barcode scanning not required* 1459 (New Bag - Provider: Shabana Lynch RN)211 (Rate/Dose Change - Provider: Jn Parra RN) 0136 (Rate/Dose Change - Provider: Jn Parra RN)1355 (New Bag - Provider: Pricila Valle RN) 0100 (Rate/Dose Verify - Provider: Sandra Lee, ZACHARY)0400 (Rate/Dose Verify - Provider: Sandra Lee RN)1353 (Hold - Provider: Jia Castellanos RN - Reason: NPO) PRN Medication Order 05/23/2024 05/24/2024 05/25/2024 acetaminophen (TYLENOL) tablet 650 mg 650 mg, Tube, Every 4 hours PRN, Mild pain (Scale 1 - 3), Starting on 05/23/24 at 1413, Until 05/25/24 at 2110, Maximum dose of acetaminophen is 4000 mg from all sources in 24 hours. HYDROcodone-acetaminophen (NORCO) 5-325 MG tablet 1 tablet 1 tablet, Tube, Every 4 hours PRN, Moderate pain (Scale 4 - 7), Starting on Sun05/23/24 at 1413, Until 05/25/24 at 2110, Maximum dose of acetaminophen is 4000 mg from all sources in 24 hours. iopamidol (ISOVUE-370) 76 % injection 100 mL (COMPLETED) 100 mL, Intravenous, IMG once as needed, Contrast, 1 dose, Starting on 05/25/24 at 1104, Until 05/25/24 at 1104 1104 (Given - Provid er: Shahram Boothe, RTR) naLOXone (NARCAN) injection 0.4 mg 0.4 mg, Intravenous, As needed, Opioid reversal, Starting on Loreta 05/22/24 at 2314, Until 05/25/24 at 2110 ondansetron (ZOFRAN) injection 4 mg 4 mg, Intravenous, Every 8 hours PRN, Nausea, Vomiting, Starting on Loreta 05/22/24 at 2314, Until 05/25/24 at 2110, IV push over 2-5 minutes. perflutren lipid microsphere (DEFINITY) injection 2 mL (COMPLETED) 2 mL, Intravenous, IMG once as needed, Contrast, 1 dose, Starting on Sun05/23/24 at 1233, Until 05/23/24 at 1223, Administer over 30-60 seconds. Follow with 10 mL saline flush. 1223 (Given - Provider: Ruthann Bryant, CHRISTIAN) polyethylene glycol (GLYCOLAX) packet 17 g 17 g, Per G Tube, Daily as needed, Constipation, Starting on Sun05/25/24 at 0618, Until Sun05/25/24 at 2109, If both senna and polyethylene glycol are ordered, use 1st; if no response by next dosing interval, go to next option. QUEtiapine (SEROquel) tablet 25 mg 25 mg, Tube, 2 times daily PRN, Other, Starting on Sun05/24/24 at 0947, Until Sun05/25/24 at 2109 Linked Groups Order Group 1: heparin (porcine) injection 5,000 Units (CANCELED)Jump to med 5,000 Units, Subcutaneous, Every 12 hours scheduled (2 times per day), First dose on Sun05/22/24 at 2330, Until Discontinued And Moderate Risk for VTE (CANCELED) Group 2: insulin lispro (HUMALOG/ADMELOG) injection 0-16 UnitsJump to med 0-16 Units, Subcutaneous, 3 times daily before meals, First dose on Sun05/23/24 at 0700, Until Discontinued, Blood Glucose (USUAL Dosing): [Less than 70:? Initiate Hypoglycemia Standing Orders] [71-140: ? 0 units] [141-180:? 4 units] [181-220:? 6 units] [221-260:? 8 units] [261-300:? 10 units] [301- 350:? 12 units] [351-400:? 14 units] [Greater than 400:? 16 units and Call Physician] And insulin lispro (HUMALOG/ADMELOG) injection 0-8 UnitsJump to med 0-8 Units, Subcutaneous, Nightly at bedtime, First dose on Sun05/22/24 at 2330, Until Discontinued, Blood Glucose (USUAL Dosing): [Less than 70:? Initiate Hypoglycemia Standing Orders] [71-180:? 0 units] [181-220:? 3 units] [221-260:? 4 units] [261-300:? 5 units] [301-350:? 6 units] [351-400:? 7 units] [Greater than 400:? 8 units and Call Physician] documented in this encounter Care Teams Senior [employer] Developer Relationship Specialty Start Date End Date Sean Kyle MD [address] [phone] PCP - General INTERNAL MEDICINE 05/22/24 documented as of this encounter
--- OUTSIDE RECORDS SUMMARY | 2024-10-11 19:49 | XMS_ITS | Clinical Summary ---
Author Organization [facility] Address [address] [place] [address]. [place] [address] [place] [address] Care Team Providers Care Health Safety Coordinator Name Role Phone Sean Kyle MD Primary Care Provider [phone] Allergies Active Allergy Reactions Criticality Noted Date Comments Lisinopril Angioedema 05/22/2024 Penicillins Swelling 05/22/2024 Medications acetaminophen (TYLENOL) 325 MG tablet 2 tablets (650 mg total) by Gastrostomy Tube route every 6 (six) hours as needed. 4 Active amLODIPine (NORVASC) 10 MG tablet 1 tablet (10 mg total) by Enteral route daily. 4 Active aspirin 81 MG chewable tablet 1 tablet (81 mg total) by Enteral route daily. 4 Active atorvastatin (LIPITOR) 40 MG tablet 1 tablet (40 mg total) by Enteral route nightly at bedtime. 4 Active busPIRone (BUSPAR) 5 MG tablet 1 tablet (5 mg total) by Gastrostomy Tube route 3 (three) times daily. 4 Active clopidogrel (PLAVIX) 75 MG tablet 1 tablet (75 mg total) by Enteral route daily. 4 Active famotidine (PEPCID) 20 MG tablet 1 tablet (20 mg total) by Enteral route 2 (two) times daily. 4 Active Heparin Sodium, Porcine, (HEPARIN, PORCINE,) 5000 UNIT/ML injection Inject 1 mL (5,000 Units total) into the skin 2 (two) times daily. 4 Active folic acid (FOLVITE) 1 MG tablet 1 tablet (1 mg total) by Enteral route daily. 4 Active hydrALAZINE (APRESOLINE) 10 MG tablet 1 tablet (10 mg total) by Gastrostomy Tube route every 8 (eight) hours. 4 Active modafinil (PROVIGIL) 200 MG tablet 1 tablet (200 mg total) by Enteral route daily. 4 Active multivitamin (THERA) tablet 1 tablet by Gastrostomy Tube route daily. 4 Active Multiple Vitamin-Folic Acid Tab 1 tablet by Enteral route daily. 4 Active QUEtiapine (SEROQUEL) 25 MG tablet 1 tablet (25 mg total) by Tube route 2 (two) times daily as needed. 4 Active senna-docusate (SENOKOT-S) 8.6-50 MG tablet 2 tablets by Enteral route 2 (two) times daily. 4 Active thiamine 100 MG Tab 1 tablet (100 mg total) by Enteral route daily. 4 Active albuterol (PROVENTIL) (2.5 MG/3ML) 0.083% nebulizer solution Inhale 3 mLs (2.5 mg total) into the lungs every 4 (four) hours as needed. 4 Active loratadine (CLARITIN) 10 MG tablet 1 tablet (10 mg total) by Gastrostomy Tube route daily. 4 Active Active Problems Problem Noted Date Diagnosed Date Confusion 05/25/2024 Near syncope 05/22/2024 Asthma ([facility]) 05/22/2024 Dysphagia following cerebral infarction 03/19/20 24 Cerebrovascular accident ([facility]) 03/12 Staphylococcus aureus infection 02/08/2024 Hyperlipidemia 08/05/2020 Overview (05/22/2024): Last Assessment & Plan: Component Ref Range & Units 7 mo ago Cholesterol <200 mg/dL 254High HDL Cholesterol > OR = 40 mg/dL 48 Triglycerides <150 mg/dL 179High LDL Calculated mg/dL (calc) 173High Comment: Reference range: <100 Desirable range <100 mg/dL for primary prevention; <70 mg/dL for patients with CHD or diabetic patients with > or = 2 CHD risk factors. LDL-C is now calculated using the Odell calculation, which is a validated novel method providing better accuracy than the Friedewald equation in the estimation of LDL-C. Mika EATON et al. RAFFI. 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 He is also likely to need additional BP med adjustment with addition of HCTZ encouraged malu bp monitoring as recommended by PCP needs weight loss desperately and referred to sign carpenter asked him to stop naproxen Atherosclerosis of coronary artery 01/23/2018 Overview (05/22/2024): Last Assessment & Plan: without angina needs more aggressive RFM continue aspirin Controlled type 2 diabetes francisco carney without complication, without long-term current use of insulin ([facility]) 09/28/2011 Resolved Problems Problem Noted Date Diagnosed Date Resolved Date Need for case management follow-up 05/22/2024 05/26/2024 Social History Tobacco Use Types Packs/Day Years Used Date Smoking Tobacco: Former Cigars Q uit: 01/23/2024 Passive Smoke Exposure: Past Smokeless Tobacco: Never Tobacco Cessation:Counseling Given: No Alcohol Use Standard Drinks/Week Comments Not Currently 0 (1 standard drink = 0.6 oz pure alcohol) History of ETOH use prior to stroke [facility] Utilities Answer Date Recorded In the past 12 months has [employer], [employer], or [employer] threatened to shut off services in your [...] any time in the past 12 m [facility], were you homeless or living in a residential (including now)? Patient unable to answer 05/23/2024 Sex and Gender Information Value Date Recorded Sex Assigned at Not on file Legal Sex Male 3:35 PM CDT Gender Identity Not on file Sexual Orientation Straight 05/22/2024 4: 24 PM CDT Last Filed Vital Signs Vital Sign Reading [...] Mass Index 32.26 05/22/2024 4:05 PM CDT Plan of Treatment Health Maintenance Due Date Last Done Comments ASCVD LDL 1958 Colorectal Cancer Screening Colonoscopy (10 Years) 1958 Kidney Health Evaluation 1958 Lipid Panel 1958 Diabetes: Retinopathy Eye Exam 1976 Hepatitis C 1976 DTaP, Tdap and Td Vaccines (1 - Tdap) 10/16/2007 10/15/2007 Zoster Vaccines (1 of 2) 2008 RSV Immunization or 60+ Years (1 - Risk 60-74 years 1-dose series) 2018 Pneumococcal Vaccine: 65+ Years (2 of 2 - PCV) 11/05/2019 11/05/2018, 02/29/2012 Pneumococcal Vaccine: Pediatrics (0 to 5 Years) and At-Risk Patients (6 to 64 Years) (2 of 2 - PCV) 11/05/2019 11/05/2018, 02/29/2012 COVID-19 Vaccine (2 - season) 2024 09/17/2023 Influenza Adult (#1) 2024 09/17/2023, 06/29/2019, 09/03/2018, Additional history exists Hemoglobin A1C 11/22/2024 05/22/2024, 04, 09/17/2023, Additional history exists AAA SCREENING Completed 02/11/2019, 12/21/2017 Meningococcal Vaccine Aged Out No omar lloyd eligible based on patient's age to complete this topic RSV Immunizations Under 20 Months Aged Out No longer eligible based on patient's age to complete this topic Procedures Procedure Name Priority Date/Time Associated Diagnosis Comments HEMOGLOBIN, GLYCOSYLATED STAT 05/22/2024 6:25 PM CDT from Last 3 Months or Most Recently Relevant to Health Maintenance Results * (ABNORMAL) HEMOGLOBIN, GLYCOSYLATED (05/22/2024 6:25 PM CDT) HGB A1C 7.4(H) <5.7 % 05/23/2024 1:29 AM CDT [facility] Comment: ADA GUIDELINES 2010 5.7 TO 6.4% INCREASED RISK OF DIABETES > OR = 6.5% CONSISTENT WITH DIABETES ESTIMATED AVG GLUCOSE 166 mg/dL 05/23/2024 1:29 AM CDT [facility] 05/22/2024 6:25 PM CDT Yaritza Cowart NP LABORATORY Final Result [facility] [address] [place] [address], from Last 3 Months or Most Recently Relevant to Health Maintenance Insurance MEDICARE Advance Directives * Full Code (Latest Code Status on File) Date Activated Date Inactivated Comments 05/22/2024 11:15 PM 05/25/2024 9:20 PM Care Teams Health Safety Coordinator Relationship Specialty Start Date End Date Sean Kyle MD [address] [address] PCP - General INTERNAL MEDICINE 05/22/24
--- OUTSIDE RECORDS SUMMARY | 2024-10-11 19:49 | XMS_ITS | Encounter Summary ---
Author Organization [facility] Address [address]. [place], [place] [address] [place] [address] Care Team Providers Care Steeping Press Tender Name Role Phone Sean Kyle MD Primary Care Provider [phone] Encounter Details Date Type Department Care Team (Latest Contact Info) Description 05/22/2024 Travel Social History Tobacco Use Types Packs/Day Years Used Date Smoking Tobacco: Former Cigars Q uit: 01/23/2024 Passive Smoke Exposure: Past Smokeless Tobacco: Never Alcohol Use Standard Drinks/Week Comments Not Currently 0 (1 standard drink = 0.6 oz pure alcohol) History of ETOH use prior to stroke [facility] Utilities Answer Date Recorded In the past 12 months has e [employer], gas, oil, or water [employer] threatened to shut off services in your [...] any time in the past 12 m [facility], were you homeless or living in a longterm (including now)? Patient unable to answer 05/23/2024 Sex and Gender Information Value Date Recorded Sex Assigned at Not on file Legal Sex Male 3:35 PM CDT Gender Identity Not on file Sexual Orientation Straight 05/22/2024 4: 24 PM CDT documented as of this encounter Plan of Treatment Not on file documented as of this encounter Visit Diagnoses Not on filedocumented in this encounter Care Teams Steeping Press Tender Relationship Specialty Start Date End Date Sean Kyle MD [address] [address] PCP - General INTERNAL MEDICINE 05/22/24 documented as of this encounter
--- OUTSIDE RECORDS SUMMARY | 2024-10-11 19:49 | XMS_ITS | Clinical Summary ---
Author Organization Unknown Care Team Providers Care Pulp Beater Name Role Phone DONNA DAVIS, SHEREE Unavailable Lan BRANNON TIRE SPOTTER, IRASEMA Un available Unavailable FELIX PHYSICAL THERAPIST, ELHAM Unavailable Unavailable SAMPSON SPEECH THERAPIST, MS, CCC/TAMPER OPERATOR, DEBORA Un available Unavailable KATIANA CONTACT CENTER ANALYST, ALCON Unavail able Unavailable BRITNI SANTAMARIA COUNSELOR, DM Unavailable Unavailable MIMI OCCUPATIONAL THERAPIST, SANDI Unavailable Unavailable Payers Payer Name Policy Type Policy Number Effective Date Expira tion Date MEDICARE [place] - EPISODIC [id number] Problems Condition Name Condition Details Condition Category [...] 10-15 00:00: 00 ATHSCL HEART DISEASE OF [place] CORONARY ARTERY W/O ANG PCTRS Active 10-15 00:00: 00 TYPE 2 DIABETES MELLITUS WITH HYPERGLYCEMI A Active 10-15 00:00: 00 GASTRO-ESOPH AGEAL REFLUX DISEASE WITHOUT ESOPHAGITIS Active 10-15 00:00: 00 PERSONAL HISTORY OF NICOTINE DEPENDENCE Active 10-15 00:00: 00 PRESENCE OF OTHER VASCULAR IMPLANTS AND GRAFTS Active 10-15 00:00: 00 PRESENCE OF AORTOCORONAR Y BYPASS GRAFT Active 10-15 00:00: 00 JAIL (CURRENT) USE OF ANTITHROMBOT ICS/ANTIPLAT ELETS Active 10-15 00:00: 00 JAIL (CURRENT) USE OF INSULIN Active 10-15 00:00: 00 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 Active 10-15 00:00: [...] on aerosol inhaler 06-18 00:00: 00 Yes [id number] WHEEZING/SH ORTNESS OF BREATH 2 puff EVERY 4 HOURS 2 puff EVERY 4 HOURS (route: inhalation ) Med Classific ation: Respirato ry Therapy Agents amlodipine 10 mg tablet 06-18 00:00: 00 Yes [id number] BLOOD PRESSURE 1 tablet ONCE DAILY 1 tablet ONCE DAILY (route: oral) Med Classific ation: Cardiovas cular Therapy Agents Aspirin Childrens 81 mg chewable tablet 06-18 00:00: 00 Yes [id number] CIRCULATION 1 tablet ONCE DAILY 1 tablet ONCE DAILY (route: oral) Med Classific ation: Hematolog ical Agents atorvastati n 40 mg tablet 06-18 00:00: 00 Yes [id number] CHOLESTEROL 1 tablet AT BEDTIME 1 tablet AT BEDTIME (route: oral) Med Classific ation: Cardiovas cular Therapy Agents buspirone 5 mg tablet 06-18 00:00: 00 Yes [id number] MOOD 1 tablet 3 TIMES DAILY 1 tablet 3 TIMES DAILY (route: oral) Med Classific ation: Central Nervous System Agents clopidogrel 75 mg tablet 06-18 00:00: 00 Yes [id number] PREVENT BLOOD CLOTS 1 tablet ONCE DAILY 1 tablet ONCE DAILY (route: oral) Med Classific ation: Hematolog ical Agents famotidine 20 mg tablet 06-18 00:00: 00 Yes [id number] PREVENT ULCERS 1 tablet TWICE DAILY 1 tablet TWICE DAILY (route: oral) Med Classific ation: Gastroint estinal Therapy Agents folic acid 1 mg tablet 06-18 00:00: 00 Yes [id number] LOW VIT B 1 tablet ONCE DAILY 1 tablet ONCE DAILY (route: oral) Med Classific ation: Electroly te Balance-N utritiona l Products guaifenesin ER 600 mg tablet, extended release 12 hr 06-18 00:00: 00 Yes [id number] COUGH 1 tablet TWICE DAILY 1 tablet TWICE DAILY (route: oral) Med Classific ation: Respirato ry Therapy Agents Humulin R Regular U-100 Insulin 100 unit/mL injection solution 06-18 00:00: 00 Yes [id number] DIABETES 15 unit AT BEDTIME 15 unit AT BEDTIME (route: injection) Med Classific ation: Endocrine hydralazine 10 mg tablet 06-18 00:00: 00 Yes [id number] BLOOD PRESSURE 1 tablet 3 TIMES DAILY 1 tablet 3 TIMES DAILY (route: oral) Med Classific ation: Cardiovas cular Therapy Agents ipratropium 0.5 mg-albutero l 3 mg (2.5 mg base)/3 mL nebulizatio n soln 06-18 00:00: 00 Yes [id number] WHEEZING/SH ORTNESS OF BREATH 3 mL EVERY 6 HOURS 3 mL EVERY 6 HOURS (route: inhalation ) Med Classific ation: Respirato ry Therapy Agents loratadine 10 mg tablet 06-18 00:00: 00 Yes [id number] ALLERGIES 1 tablet ONCE DAILY 1 tablet ONCE DAILY (route: oral) Med Classific ation: Respirato ry Therapy Agents Multivitami n 50 Plus tablet 06-18 00:00: 00 Yes [id number] HEALTH SUPPLEMENT 1 tablet ONCE DAILY 1 tablet ONCE DAILY (route: oral) Med Classific ation: Electroly te Balance-N utritiona l Products quetiapine 25 mg tablet 06-18 00:00: 00 Yes [id number] MOOD 1 tablet TWICE DAILY 1 tablet TWICE DAILY (route: oral) Med Classific ation: Central Nervous System Agents Senna Plus 8.6 mg-50 mg capsule 06-18 00:00: 00 Yes [id number] CONSTIPATIO N 2 capsule 2 TIMES DAILY 2 capsule 2 TIMES DAILY (route: oral) Med Classific ation: Gastroint estinal Therapy Agents thiamine HCl (vitamin B1) 100 mg tablet 06-18 00:00: 00 Yes [id number] LOW B VITAMIN 1 tablet ONCE DAILY 1 tablet ONCE DAILY (route: oral) Med Classific ation: Electroly te Balance-N utritiona l Products Tylenol 325 mg tablet 06-18 00:00: 00 Yes [id number] PAIN/FEVER 2 tablet EVERY 6 HOURS 2 [...] End Date/Time Encounter Type Admission Type Attending [facility] Care Department Encounter ID Discharge Date Discharge Status Discharge Condition Discharge Reason Percent Goals Met 2024-06-19 00:00:00 2024-10-16 00:00:00 Outpatient RECERTIFIC [place] [id number] 57.14
== END 2024-10-04 14:55 | disposition home or self-care (01) ==
PROVIDERS: Emergency Provider Student in an Organized Health Care Education/Training Program
DX: K59.00 Constipation, unspecified (principal); I69.391 Dysphagia following cerebral infarction; R13.10 Dysphagia, unspecified; I25.10 Atherosclerotic heart disease of native coronary artery without angina pectoris; I10 Essential (primary) hypertension; I65.1 Occlusion and stenosis of basilar artery; E11.9 Type 2 diabetes mellitus without complications; Z87.891 Personal history of nicotine dependence; Z79.899 Other long term (current) drug therapy; Z79.82 Long term (current) use of aspirin; Z79.4 Long term (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
CPT/HCPCS: 99283; A9270

== ENCOUNTER 2024-11-25 20:44 | Observation (INO) | payer MEDICARE, SELFPAY ==
--- NOTE | ~2024-11-25 | XR_ITS ---
Portable chest x-ray Comparison: 09/22/2024 Clinical History: Cough, fever Findings: Possible minimal central congestive change. No other consolidation or pleural effusion. C ardiomediastinal silhouette is stable. Bones and soft tissues are unremarkable. Impression: Possible minimal central congestive change. Stable cardiomegaly, status post CABG. Reviewed, dictated and finalized at location . OR TECHNICAL RECRUITER Impression: Possible minimal central congestive change. Stable cardiomegaly, status post CABG.
[2024-11-25 20:46] VITALS: BP 133/74; PULSE 93; RESP 15; TEMP 39.2; O2SAT 97
--- OUTSIDE RECORDS SUMMARY | 2024-11-25 20:46 | XMS_ITS | Encounter Summary ---
Author Organization [facility] Address [address] [place] [address] Care Team Providers Care Carpet Installation Specialist Name Role Phone Lisy Olmedo MD Primary Care Provide r Sylvain Daniels MD Primary Care Provider + [phone] None, Physician Primary Care Provider Unavailabl e Sylvain Daniels MD Unavailable [phone] Sylvain Daniels MD Unavailable [phone] Sylvain Daniels MD Unavailable [phone] Sylvain Daniels MD Primary Care Provider + [phone] Kiana Cole MD Primary Care Provider Sean Kyle MD Primary Care Provider [phone] Kaina Cole MD Primary Care Provider Reason for Visit * Reason Onset Date Comments MEDICATION REFILL 12/27/2020 Encounter Details Date Type Department Care Team (Late st Contact Info) Description 12/27/2020 Refill [facility] [address] [facility] [address] [place] [address] Lisy Olmedo MD [address] [place] [id number] MEDICATION REFILL Social History Tobacco Use Types [...] Care Team (Late st Contact Info) Description 11/28/2024 9:00 AM 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 [address] [place] [address] Curly Lay MD [address] [place] [phone] documented as of this encounter Visit Diagnoses Diagnosis Essential hypertension Coronary artery disease involving [place] coronary artery of [place] heart with angina pectoris (HCC) Type 2 [...] documented as of this encounter Care Teams Carpet Installation Specialist Relationship Specialty Start Date End Date Lisy Olmedo MD PCP - General 04/20/09 05/09/22 Sylvain Daniels MD PCP - General Family Medicine 05/10/22 02/14/24 None, Physician [address] [place] [address] PCP - General 02/15/24 05/16/24 Sylvain Daniels MD [address] [place] [phone] PCP - Attributed-[employer] Commercial 05/15/22 10/01/22 Sylvain Daniels MD [address] [place] [phone] PCP - Attributed-[employer] Commercial [facility] 02/12/23 04/01/23 Sylvain Daniels MD [address] [place] [address] PCP - General Family Medicine 05/17/24 05/19/24 Kiana Cole MD [address] [place] [address] PCP - General Internal Medicine 05/22/24 08/04/24 Sean Kyle MD [address] [place] [id number] PCP - General Internal Medicine 08/05/24 09/15/24 Kiana Cole MD [address] [place] [address] PCP - General Internal Medicine 09/16/24 Sylvain Daniels MD Family Medicine 02/15/24 documented as of this encounter
--- OUTSIDE RECORDS SUMMARY | 2024-11-25 20:47 | XMS_ITS | CCD ---
Author Name Saroj DAVIS, Dr Amanda escalona Address [address] [facility] [place] [address] Phone Organization [facility] Phone Care Team Providers Care Dicer Operator Name Role Phone Unavailable Primary Care Provider Unavailabl e Unavailable Chronic Care Management Unavaila ble Summary Purpose DataExchange Insurance Providers Payer name Policy type / Coverage type Covered republican ID Effective Begin Date Effective End Date [place] [id number] Unknown Family history Sister Diagnosis Age At [...] No Inactive Date Active LISINOPRIL angioedema RxNorm: 27391 05/21/2024 No Inactive D ate Active Penicillin [...] ICD-9: 402.90 07/24/2024 Active long term care administrator (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 ICD-1 0: Z79.4 [...] Syncope ICD-10: R55 ICD-9: 780.2 06/24/2024 Active shelter (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 ICD-10: Z79.4 05/21 Active Urinary incontinence ICD-10: R32 ICD-9: 788.30 05/21/2024 Active Medications Medication Codes Instructions Start Date Stop Date Status Fill Instructions ipratropium 0.5 mg-albuterol 3 mg (2.5 mg base)/3 mL nebulization soln RxNorm: 3410737 Inhale 3 Milliliter(s) Inhalation every 6 hours as needed for shortness of breath 4 11/19/19 25 Inactive albuterol sulfate HFA 90 mcg/actuation aerosol inhaler RxNorm: 1578843 Administer 2 Puff(s) Inhalation every 4 to 6 hours 4 12/20/19 25 Active buspirone 5 mg tablet RxNorm: 835135 Take 1 Tablet(s) Oral three times a day 4 10/26/19 25 Inactive Senna Plus 8.6 mg-50 mg tablet RxNorm: 790249 Take 2 Tablet(s) Oral two times a day as needed for constipation 4 07/28/20 24 Inactive multivitamin tablet RxNorm: Take 1 Tablet(s) Oral every day 4 10/20/19 26 Active buspirone 5 mg tablet RxNorm: 216520 Take 1 Tablet(s) Oral two times a day 4 10/16/19 26 Active polyethylene glycol 3350 17 gram/dose oral powder RxNorm: 960218 Use 1 Unit Dose Oral every day Mix 17g (one capful) with 8oz liquid. Hold for loose stools. 4 08/17/20 25 Active ipratropium 0.5 mg-albuterol 3 mg (2.5 mg base)/3 mL nebulization soln RxNorm: 8304444 Administer 3 Milliliter(s) Inhalation every 6 hours as needed for shortness of breath 4 08/22/20 24 Inactive buspirone 5 mg tablet RxNorm: 664387 Take 1 Tablet(s) Oral three times a day 07/23/20 24 Inactive aspirin 81 mg chewable tablet RxNorm: 835852 Take 1 Tablet(s) Feeding Tube / PEG every day 08/13/20 25 Active atorvastatin 40 mg tablet RxNorm: 710453 Take 1 Tablet(s) Feeding Tube / PEG every night at bedtime 08/13/20 25 Active amlodipine 10 mg tablet RxNorm: 297498 Take 1 Tablet(s) Feeding Tube / PEG once daily 08/13/20 25 Active clopidogrel 75 mg tablet RxNorm: 003459 Take 1 Tablet(s) Feeding Tube / PEG once daily 08/13/20 25 Active Pen Needle 31 gauge x 5/16 RxNorm: Take 1 Pen Needle Subcutaneous three times a day 08/13/20 25 Active famotidine 20 mg tablet RxNorm: 996837 Take 1 Tablet(s) Feeding Tube / PEG two times a day 08/13/20 25 Active thiamine HCl (vitamin B1) 100 mg tablet RxNorm: 036571 Take 1 Tablet(s) Feeding Tube / PEG every day 08/13/20 25 Active folic acid 1 mg tablet RxNorm: 345653 Take 1 Tablet(s) Feeding Tube / PEG every day 08/13/20 25 Active multivit-mineral -folic acid 333 mcg-lutein 3 mg-zeaxant 0.67 mg tablet RxNorm: Take 1 Tablet(s) Oral every day 4 No Stop Date Active Lantus Solostar U-100 Insulin 100 unit/mL (3 mL) subcutaneous pen RxNorm: 605116 Administer 15 Unit(s) Subcutaneous every night at bedtime 08/13/20 25 Active loratadine 10 mg tablet RxNorm: 583004 Take 1 Tablet(s) Feeding Tube / PEG every day 08/13/20 25 Active Senna Plus 8.6 mg-50 mg tablet RxNorm: 992511 Take 2 Tablet(s) Feeding Tube / PEG two times a day as needed for constipation 07/29/20 24 Inactive albuterol sulfate HFA 90 mcg/actuation aerosol inhaler RxNorm: 9730020 Administer 2 Puff(s) Inhalation every 4 to 6 hours 4 05/21/20 24 Inactive Medication Administered No Medication Administered data Results Observation Observation Code Item Item Code Result Date Service Location COMPLETE CBC W/ DIFF WBC 37781 WBC 6690-2 6.8 K/ul [facility] [address] [place] [address] 01309 COMPLETE CBC W/ DIFF WBC 96348 RBC 789-8 3.89 M/uL [facility] [address] [place] [address] 44426 COMPLETE CBC W/ DIFF WBC 72101 Hemoglobin 718-7 10.6 g/dL [facility] [address] [place] [address] 06376 COMPLETE CBC W/ DIFF WBC 15537 Hematocrit 4544-3 32.2 % [facility] [address] [place] [address] 51295 COMPLETE CBC W/ DIFF WBC 19599 MCV 787-2 82.9 fL [facility] [address] [place] [address] 44225 COMPLETE CBC W/ DIFF WBC 54099 MCH 785-6 27.3 pg 024 [facility] [address] [place] [address] 48178 COMPLETE CBC W/ DIFF WBC 63325 MCHC 786-4 32.9 g/dL 024 [facility] [address] [place] [address] 81479 COMPLETE CBC W/ DIFF WBC 53205 RDW 788-0 15.5 % 024 [facility] [address] [place] [address] 42287 COMPLETE CBC W/ DIFF WBC 31028 Platelet Count 777-3 303 K/uL 024 [facility] [address] [place] [address] 24246 COMPLETE CBC W/ DIFF WBC 96614 MPV 05053-7 8.0 fL [facility] [address] [place] [address] 10376 COMPLETE CBC W/ DIFF WBC 25930 Neutrophils % 770-8 51.2 % [facility] [address] [place] [address] 56545 COMPLETE CBC W/ DIFF WBC 92856 Lymphocytes % 736-9 39.8 % 08/08/2 024 [facility] [address] [place] [address] COMPLETE CBC W/ DIFF WBC 50409 Monocytes % 5905-5 6.7 % 024 [facility] [address] [place] [address] COMPLETE CBC W/ DIFF WBC 15011 Eosinophils % 713-8 2.1 % 024 [facility] [address] [place] [address] COMPLETE CBC W/ DIFF WBC 27757 Basophils% 706-2 0.2 % 024 [facility] [address] [place] [address] COMPLETE CBC W/ DIFF WBC 21477 Absolute Neutrophil 751-8 3482 /ul 024 [facility] [address] [place] [address] 54636 COMPLETE CBC W/ DIFF WBC 75268 Absolute Lymphocyte 71095-6 2706 /ul 024 [facility] [address] [place] [address] 16439 COMPLETE CBC W/ DIFF WBC 29870 Absolute Monocyte 742-7 456 /ul 024 [facility] [address] [place] [address] 00425 COMPLETE CBC W/ DIFF WBC 09243 Absolute Eosinophil 711-2 143 /ul 024 [facility] [address] [place] [address] 76122 COMPLETE CBC W/ DIFF WBC 40711 Absolute Basophil 704-7 14 /ul 024 [facility] [address] [place] [address] 95751 Direct LDL 78097 LDL-Direct 12957-2 117 mg/dL 024 [facility] [address] [place] [address] 19517 TRIGLYCERIDES 80590 Triglycerides 2571-8 173 mg/dL 024 [facility] [address] [place] [address] 15892 TRIGLYCERIDES 80655 VLDL 66245-4 35 mg/dL 024 [facility] [address] [place] [address] 00314 CHOLESTEROL 13752 Cholesterol 2093-3 177 mg/dL 024 [facility] [address] [place] [address] 27784 CHEM 14 (METABOLIC PANEL) 62698 Glucose 2345-7 138 mg/dL 024 [facility] [address] [place] [address] 42587 CHEM 14 (METABOLIC PANEL) 76771 BUN 3094-0 21 mg/dL 024 [facility] [address] [place] [address] 24745 CHEM 14 (METABOLIC PANEL) 01920 Creatinine 2160-0 0.8 mg/dL 024 [facility] [address] [place] [address] 45015 CHEM 14 (METABOLIC PANEL) 57668 BUN/Creat Ratio 3097-3 25.7 024 [facility] [address] [place] [address] 07048 CHEM 14 (METABOLIC PANEL) 06384 GFR Estimated 58594-0 97 mL/min/1. 73m2 024 [facility] [address] [place] [address] CHEM 14 (METABOLIC PANEL) 92306 Sodium 2951-2 139 mmol/L 024 [facility] [address] [place] [address] 88634 CHEM 14 (METABOLIC PANEL) 46194 Potassium 2823-3 4.0 mmol/L 024 [facility] [address] [place] [address] 79838 CHEM 14 (METABOLIC PANEL) 87220 Chloride 2075-0 98 mmol/L 024 [facility] [address] [place] [address] 53986 CHEM 14 (METABOLIC PANEL) 55396 Total CO2 2028-9 30 mmol/L 024 [facility] [address] [place] [address] 89510 CHEM 14 (METABOLIC PANEL) 77321 Anion Gap 1863-0 15.0 mEq/L 024 [facility] [address] [place] [address] 44709 CHEM 14 (METABOLIC PANEL) 45087 Calculated Serum Osmolality 03750-0 293 mOsm/kg 024 [facility] [address] [place] [address] 36910 CHEM 14 (METABOLIC PANEL) 18691 Albumin 40903-1 3.1 g/dL 024 [facility] [address] [place] [address] 81435 CHEM 14 (METABOLIC PANEL) 69389 Total Protein 2885-2 7.5 g/dL 024 [facility] [address] [place] [address] 18549 CHEM 14 (METABOLIC PANEL) 03729 Globulin 2336-6 4.4 g/dL 024 [facility] [address] [place] [address] 06552 CHEM 14 (METABOLIC PANEL) 21956 Albumin/Globulin Ratio 1759-0 0.7 024 [facility] [address] [place] [address] 95758 CHEM 14 (METABOLIC PANEL) 61333 ALK PHOS 6768-6 66.00 U/L 024 [facility] [address] [place] [address] CHEM 14 (METABOLIC PANEL) 53793 SGOT/AST 1920-8 13 U/L 024 [facility] [address] [place] [address] CHEM 14 (METABOLIC PANEL) 72175 SGPT/ALT 1743-4 19 U/L 024 [facility] [address] [place] [address] CHEM 14 (METABOLIC PANEL) 47041 Total Bilirubin 1975-2 0.3 mg/dL 024 [facility] [address] [place] [address] CHEM 14 (METABOLIC PANEL) 44736 Calcium 96168-6 9.4 mg/dL 024 [facility] [address] [place] [address] CHEM 14 (METABOLIC PANEL) 97869 Corrected Calcium 77602-7 10.3 mg/dL 024 [facility] [address] [place] [address] PTH 09615 PTH 2731-8 21.7 pg/mL 024 [facility] [address] [place] [address] VITAMIN B-12 91011 Vitamin B12 2132-9 609 pg/mL 05/22 024 [facility] [address] [place] [address] 94377 [id number] IN 4548-4 Glyco HGB A1C 65638-3 7.0 % 024 [facility] [address] [place] [address] 72660 [id number] IN [facility]8-4 eAG 63516-9 154 mg/dL 024 [facility] [address] [place] [address] HDL - CHOL 58727 HDL 2085-9 30 mg/dL 024 [facility] [address] [place] [address] HDL - CHOL 67896 CHD 19210-2 17 % 024 [facility] [address] [place] [address] TSH 38839 TSH 29578-3 2.540 uIU/mL 024 [facility] [address] [place] [address] Procedures Procedure Codes Date Annual Wellness Visit (Initial Visit) CPT-4: G04 38 07/24/2024 FLU VACC CELL CULT PRSV FREE CPT-4: 24879 07/2024 Most recent A1c = 7.0% and < 8.0% CPT-4: 3051F 07/24/2024 FLUCEL VAX PFS VAC NO PRSV 0.5ML IM CPT-4: 83649 07/24/2024 Admin flu virus vaccine CPT-4: G0008 07/24/20 24 LEVEL OF ACTIVITY ASSESS CPT-4: 1003F 024 PT SCRN TBCO ID NON USER CPT-4: G9903 07/15 Current tobacco non-user CPT-4: 1036F 024 Amnt pain noted; none prsnt CPT-4: 1126F 07/15 MED LIST DOCD IN [facility] CPT-4: 1159F 07/24/2024 RVW MEDS BY RX/DR IN [facility] CPT-4: 116F 2023 Patient Screened for Future Fall Risk CPT-4: 110 0F 07/24/2024 Fall plan of care doc'd CPT-4: 0518F 07/24/20 24 Most recent A1c = 7.0% and < 8.0% CPT-4: 305F 06/24/2024 MED LIST DOCD IN [facility] CPT-4: 1159F 06/24/2024 RVW MEDS BY RX/DR IN [facility] CPT-4: 1160F 2023 Discharge Meds Reconciled w/ Current Med list CP T-4: 1111F 06/24/2024 Amnt pain noted; none prsnt CPT-4: 1126F 06/[address] CPT-4: 1159F 05/21/2024 RVW MEDS BY RX/DR IN [facility] CPT-4: 1160F 2023 Discharge Meds Reconciled w/ Current Med list CP T-4: 1111F 05/21/2024 Amnt pain noted; none prsnt CPT-4: 1126F 04/2024 Screening for clinical depre ssion is negative, follow-up plan not required CPT-4: G8510 05/21/2024 Patient Screened for Future Fall Risk CPT-4: 110 0F 05/21/2024 Fall plan of care doc'd CPT-4: 0518F 05/21/20 24 Cologuard CPT-4: 80610 Unknown [id number]-Vtararhzhwtroos CPT-4: 25801 Unknown Gastroenterology Referral SNOMED CT: 306 472803 CPT-4: R12 Unknown Vital Signs Date Vital 07/24/2024 Blood Pressure 1: 120/82 Code: 8480-6 BMI: 32.3 Code: 47205-3 Heart Rate 1: 81 bpm Height: 6'4 Code: 8302-2 Respiratory Rate: 16 bpm SpO2: 97% Temperature: 36.1 (C) / 97.0 (F) Weight: 265 lbs Code: 53898-5 06/24/2024 Blood Pressure 1: 134/76 Code: 8480-6 BMI: 34.6 Code: 95915-1 Heart Rate 1: 86 bpm Height: 6'4 Code: 8302-2 Respiratory Rate: 17 bpm SpO2: 94% Temperature: 36.4 (C) / 97.6 (F) Weight: 284 lbs Code: 98353-7 05/21/2024 Blood Pressure 1: 135/82 Code: 8480-6 BMI: 32.3 Code: 12652-1 Heart Rate 1: 84 bpm Height: 6'4 Code: 8302-2 Respiratory Rate: 17 bpm SpO2: 93% Temperature: 35.6 (C) / 96.0 (F) Weight: 265 lbs Code: 73196-0 Reason For Visit Reason For Visit Effective [...] disease)[ICD10: K21.9] Diagnosis: Gastrostomy present[ICD10: Z93.1] Diagnosis: long term care administrator (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[ICD10: Z79.4] Diagnosis: At high risk for falls[ICD10: Z91.81] [facility] [address] [place] [address] CPT-4: G0438 4 (28972) Home or Residence Visit Est Pt - [...] ] Diagnosis: [ICD9: ] Diagnosis: [ICD9: ] [facility] [address] [place] [address] CPT-4: 33781 4 (93607) Home or Residence Visit Est Pt - [...] cancer screening[ICD10: Z12.11] Diagnosis: Paroxysmal cough[ICD10: R05.8] [facility] [address] [place] [address] CPT-4: 25779 4 (52085) 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 or 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, 60 mins Diagnosis: Hemiparesis due to recent cerebrovascular accident (CVA)[ICD10: I69.359] Diagnosis: Gastrostomy present[ICD10: Z93.1] Diagnosis: Diabetes mellitus due to underlying condition with diabetic neuropathy, with long-term current use of insulin[ICD10: E08.40] Diagnosis: Hypertension with heart disease[ICD10: I11.9] Diagnosis: Dysphagia as late effect of cerebrovascular accident (CVA)[ICD10: I69.391] Diagnosis: shelter (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[ICD10: Z79.4] Diagnosis: Dysarthria [...] adult medical examination with abnormal findings[ICD10: Z00.01] [facility] [address] [place] [address] CPT-4: 59238 4 Plan of Care Planned Activity Notes [...] insulin: Stable Hba1c 7.0. On Lantus Z79.4-V58.67 shelter (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: On Lantus 15 [...] Pepcid 07/24/2024 Appointment: Sean Kyle WPtel: [address] [facility] E034 07/24/2024 Patient Education: Obesity Completed 07/24/2024 [...] On Lantus Z79.4-V58.67 shelter (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 On Lantus 15 [...] At high risk for falls: at present [facility] bound. On PT/OT for strengthening, balance, coordination Z12.11-V76.51 Colon cancer screening: [place] R05.8-786.2 Paroxysmal cough: poss due to poor pharyngeal reflex, GERD . Try Protonix. Oropharyngeal suctioning. Order Suction Aspirator 06/24/2024 Appointment: Sean Kyle WPtel: [address] [place] [address] E034 06/24/2024 Patient Education: Obesity Completed 06/24/2024 Patient Education: Patient Medication Summary Completed 06/24/2024 Care Plan: [place] Ordered 06/15 Appointment: Oscar Hoyt WPtel: [address] [facility] [address] [id number] [place] Phone Call 06/20/2024 Appointment: Mony Moseley WPtel: [address] [place], [place] [phone] Phone Call 06/06/2024 Appointment: Mony Moseley WPtel: [address] [place], [place] [phone] Phone Call 05/26/2024 Visit Plan: I69.359-438.20 Hemiparesis [...] late effect of cerebrovascular accident (CVA) Z79.4- shelter (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 I69.322-438.13 Dysarthria as [...] findings 05/21/2024 Appointment: Sean Kyle WPtel: [address] [facility] N034 05/21/2024 Patient Education: Patient Medication Summary Completed 05/21/2024 Patient Education: Obesity Completed 05/21/2024 Referral: [employer] WPtel: [address] [place] [address] [place] Referral faxed to: Agency Name: [employer] Agency Address: [address] [place] [address] Agency Phone #: [phone] Agency Agency will contact the patient to schedule Order Faxed Referral: Pending Medical Records Information [facility] requires Consent when requesting records, there i currently no consent on file for the patient can we get consent uploaded to [facility] so we can finish the request. thank you On Hold Awaiting Documentation Referral: [facility] WPtel: [address] [place], [place] [phone] [facility]- [facility] Ruiz [address] [facility], [facility] [address], [place] [address] Reprocess Referral: [facility] WPtel: [address] 05/22/2024 order faxed to agency. Not Taken Up Referral: Residential home health WPtel: [address] [facility] [address] [place], [place] [id number] Referral ACT - Recert Referral: Pending Area Mechanic Referral Information lvm , provided the above agency information. Instructed to call O&R department if they do not hear back from agency withing 7-10 days.05/22/24 no answer, lvm to cb Spoke with office HVS Referral faxed to:[employer] Agency Name: _[facility] Agency Address:_ [address], [place] [address] Agency Phone #:_ Agency _ Agency will contact the patient to schedule appointment. Order Faxed Referral: Sean Kyle WPtel: [address] [place] [address] [address] [id number] [place] Agency contacted, confirmed they're accepting new patients. They will run insurance once order is received Referral faxed to: Agency Name: [employer] [facility] Agency Address: [address] [facility], [facility] [address], [place] [address] Agency Phone #:[phone] Agency Agency will ship to patient. pt has referral info Order Faxed Referral: Residential home health WPtel: [address] [facility] [address] [place], [place] [phone] Referral ACT - Cert Referral: [facility] WPtel: [address] Notes & referral faxed to [facility] [phone] Order Faxed Referral: Pending Incontinence Supplies Order Information called and spoke to Nanette GUADALUPEA an advised contact number given Order Faxed Referral: Sean Kyle WPtel: [address] [facility] 06-24-2024. Called pt. spoke with Jenn Do [...] Jenn agree and never return a call. [facility] Confirmed Referral: Pending DME Order Information [...] insulin: Stable Hba1c 7.0. On Lantus Z79.4-V58.67 shelter (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: On Lantus 15 [...] placed R05.8-786.2 Paroxysmal cough R26.9-781.2 Gait abnormality: [facility] . On PT progressing J45.909-493.90 Asthma [...] At high risk for falls: at present [facility] bound. On PT/OT for strengthening, balance, [...] late effect of cerebrovascular accident (CVA) Z79.4- long term care administrator (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 I69.322-438.13 Dysarthria as [...]
--- OUTSIDE RECORDS SUMMARY | 2024-11-25 20:47 | XMS_ITS | Encounter Summary ---
Author Organization [facility] Address [address] [facility] [place] [address] Care Team Providers Care Sticker On Name Role Phone Lisy Olmedo MD Primary Care Provide r Sylvain Daniels MD Primary Care Provider + [phone] None, Physician Primary Care Provider Unavailabl e Sylvain Daniels MD Unavailable [phone] Sylvain Daniels MD Unavailable [phone] Sylvain Daniels MD Unavailable [phone] Sylvain Daniels MD Primary Care Provider + [phone] Kiana Cole MD Primary Care Provider Sean Kyle MD Primary Care Provider [phone] Kiana Cole MD Primary Care Provider Reason for Visit * Reason Onset Date Comments MEDICATION REFILL 11/19/2021 Encounter Details Date Type Department Care Team (Late st Contact Info) Description 11/19/2021 Refill [facility] Medicine [address] [facility] [address] [place] [address] Lisy Olmedo MD [address] [place] [address] MEDICATION REFILL Social History Tobacco Use Types [...] person have serious difficulty walking/climbing stairs? Yes-post [facility]; needs rehab to build activity level. 01/30/2018 [...] 50 years ago ??? Penicillin V Rash IFICATION PRINTER documented in this encounter Plan of Treatment Upcoming Encounters Date Type Department Care Team (Late st Contact Info) Description 11/28/2024 9:00 AM RECTIFICATION PRINTER Office Visit [facility] - Neurology [address] [facility], [facility] [place] [phone] Aline Finch MD [address] [place] [address] 02/10/2025 10:00 AM CDT Office Visit [facility] - Cardiology [address] [place] [address] Curly Lay MD [address] [place] [address] documented as of this encounter Visit Diagnoses Diagnosis Erectile dysfunction, unspecified erectile dysfunction type documented in this encounter Additional Health Concerns Infection Onset Date Last Indicated Resolved Time COVID-19 Under Investigation 07/26/2022 07/26/2022 07/26/2022 5:54 PM CDT COVID-19 Under Investigation 04/10/2024 04/10/2024 04/10/2024 2:48 PM CDT documented as of this encounter Care Teams Sticker On Relationship Specialty Start Date End Date Lisy Olmedo MD PCP - General 04/20/09 05/09/22 Sylvain Daniles MD PCP - General Family Medicine 05/10/22 02/14/24 None, Physician [address] [place] [address] PCP - General 02/15/24 05/16/24 Sylvain Daniels MD [address] [place] [address] PCP - Attributed-[employer] 05/15/22 10/01/22 Sylvain Daniels MD [address] [place] [address] PCP - Attributed-[employer] ST 02/12/23 04/01/23 Sylvain Daniels MD [address] [place] [address] PCP - General Family Medicine 05/17/24 05/19/24 Kiana Cole MD [address] [place] [address] PCP - General Internal Medicine 05/22/24 08/04/24 Sean Kyle MD [address] [place] [address] PCP - General Internal Medicine 08/05/24 09/15/24 Kiana Cole MD [address] [place] [address] PCP - General Internal Medicine 09/16/24 Sylvain Daniels MD Family Medicine 02/15/24 documented as of this encounter
--- OUTSIDE RECORDS SUMMARY | 2024-11-25 20:47 | XMS_ITS | CCD ---
Author Name Saroj DAVIS, Dr Amanda escalona Address [address] [facility] [address] [place] [address] Phone Organization [email or web address] Phone Care Team Providers Care Life Skills Instructor Name Role Phone Unavailable Primary Care Provider Unavailabl e Unavailable Chronic Care Management Unavaila ble Summary Purpose DataExchange Insurance Providers Payer name Policy type / Coverage type Covered democrat ID Effective Begin Date Effective End Date [place] [id number] Unknown Family history Sister Diagnosis Age At [...] No Inactive Date Active LISINOPRIL angioedema RxNorm: 50561 05/21/2024 No Inactive D ate Active Penicillin [...] disease ICD-10: I11.9 ICD-9: 402.90 07/24/2024 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 ICD-1 0: [...] Syncope ICD-10: R55 ICD-9: 780.2 06/24/2024 Active [facility] (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 ICD-10: Z79.4 05/21 Active Urinary incontinence ICD-10: R32 ICD-9: 788.30 05/21/2024 Active Medications Medication Codes Instructions Start Date Stop Date Status Fill Instructions ipratropium 0.5 mg-albuterol 3 mg (2.5 mg base)/3 mL nebulization soln RxNorm: 7132580 Inhale 3 Milliliter(s) Inhalation every 6 hours as needed for shortness of breath 4 11/19/19 25 Inactive albuterol sulfate HFA 90 mcg/actuation aerosol inhaler RxNorm: 6518591 Administer 2 Puff(s) Inhalation every 4 to 6 hours 4 12/20/19 25 Active buspirone 5 mg tablet RxNorm: 295878 Take 1 Tablet(s) Oral three times a day 4 10/26/19 25 Inactive Senna Plus 8.6 mg-50 mg tablet RxNorm: 363029 Take 2 Tablet(s) Oral two times a day as needed for constipation 4 07/28/20 24 Inactive multivitamin tablet RxNorm: Take 1 Tablet(s) Oral every day 4 10/20/19 26 Active buspirone 5 mg tablet RxNorm: 606306 Take 1 Tablet(s) Oral two times a day 4 10/16/19 26 Active polyethylene glycol 3350 17 gram/dose oral powder RxNorm: 342926 Use 1 Unit Dose Oral every day Mix 17g (one capful) with 8oz liquid. Hold for loose stools. 4 08/17/20 25 Active ipratropium 0.5 mg-albuterol 3 mg (2.5 mg base)/3 mL nebulization soln RxNorm: 6088817 Administer 3 Milliliter(s) Inhalation every 6 hours as needed for shortness of breath 4 08/22/20 24 Inactive buspirone 5 mg tablet RxNorm: 949535 Take 1 Tablet(s) Oral three times a day 07/23/20 24 Inactive aspirin 81 mg chewable tablet RxNorm: 074898 Take 1 Tablet(s) Feeding Tube / PEG every day 08/13/20 25 Active atorvastatin 40 mg tablet RxNorm: 686437 Take 1 Tablet(s) Feeding Tube / PEG every night at bedtime 08/13/20 25 Active amlodipine 10 mg tablet RxNorm: 708119 Take 1 Tablet(s) Feeding Tube / PEG once daily 08/13/20 25 Active clopidogrel 75 mg tablet RxNorm: 082829 Take 1 Tablet(s) Feeding Tube / PEG once daily 08/13/20 25 Active Pen Needle 31 gauge x 5/16 RxNorm: Take 1 Pen Needle Subcutaneous three times a day 08/13/20 25 Active famotidine 20 mg tablet RxNorm: 255027 Take 1 Tablet(s) Feeding Tube / PEG two times a day 08/13/20 25 Active thiamine HCl (vitamin B1) 100 mg tablet RxNorm: 791811 Take 1 Tablet(s) Feeding Tube / PEG every day 08/13/20 25 Active folic acid 1 mg tablet RxNorm: 516942 Take 1 Tablet(s) Feeding Tube / PEG every day 08/13/20 25 Active multivit-mineral -folic acid 333 mcg-lutein 3 mg-zeaxant 0.67 mg tablet RxNorm: Take 1 Tablet(s) Oral every day 4 No Stop Date Active Lantus Solostar U-100 Insulin 100 unit/mL (3 mL) subcutaneous pen RxNorm: 358373 Administer 15 Unit(s) Subcutaneous every night at bedtime 08/13/20 25 Active loratadine 10 mg tablet RxNorm: 567518 Take 1 Tablet(s) Feeding Tube / PEG every day 08/13/20 25 Active Senna Plus 8.6 mg-50 mg tablet RxNorm: 822691 Take 2 Tablet(s) Feeding Tube / PEG two times a day as needed for constipation 07/29/20 24 Inactive albuterol sulfate HFA 90 mcg/actuation aerosol inhaler RxNorm: 5592959 Administer 2 Puff(s) Inhalation every 4 to 6 hours 4 05/21/20 24 Inactive Medication Administered No Medication Administered data Results Observation Observation Code Item Item Code Result Date Service Location COMPLETE CBC W/ DIFF WBC 69982 WBC 6690-2 6.8 K/ul [facility] [address] [place] [address] 46914 COMPLETE CBC W/ DIFF WBC 12162 RBC 789-8 3.89 M/uL [facility] [address] [place] [address] 94809 COMPLETE CBC W/ DIFF WBC 87490 Hemoglobin 718-7 10.6 g/dL [facility] [address] [place] [address] 95020 COMPLETE CBC W/ DIFF WBC 02847 Hematocrit 4544-3 32.2 % [facility] [address] [place] [address] 92496 COMPLETE CBC W/ DIFF WBC 81942 MCV 787-2 82.9 fL [facility] [address] [place] [address] 13457 COMPLETE CBC W/ DIFF WBC 65822 MCH 785-6 27.3 pg 024 [facility] [address] [place] [address] 80705 COMPLETE CBC W/ DIFF WBC 40106 MCHC 786-4 32.9 g/dL 024 [facility] [address] [place] [address] 67127 COMPLETE CBC W/ DIFF WBC 85328 RDW 788-0 15.5 % 024 [facility] [address] [place] [address] 80334 COMPLETE CBC W/ DIFF WBC 29459 Platelet Count 777-3 303 K/uL 024 [facility] [address] [place] [address] 16661 COMPLETE CBC W/ DIFF WBC 02511 MPV 37017-7 8.0 fL [facility] [address] [place] [address] 38043 COMPLETE CBC W/ DIFF WBC 31516 Neutrophils % 770-8 51.2 % [facility] [address] [place] [address] 14443 COMPLETE CBC W/ DIFF WBC 62813 Lymphocytes % 736-9 39.8 % 08/08/2 024 [facility] [address] [place] [address] COMPLETE CBC W/ DIFF WBC 31769 Monocytes % 5905-5 6.7 % 024 [facility] [address] [place] [address] 62558 COMPLETE CBC W/ DIFF WBC 72057 Eosinophils % 713-8 2.1 % 024 [facility] [address] [place] [address] COMPLETE CBC W/ DIFF WBC 67232 Basophils% 706-2 0.2 % 024 [facility] [address] [place] [address] COMPLETE CBC W/ DIFF WBC 89622 Absolute Neutrophil 751-8 3482 /ul 024 [facility] [address] [place] [address] 32215 COMPLETE CBC W/ DIFF WBC 77699 Absolute Lymphocyte 14798-0 2706 /ul 024 [facility] [address] [place] [address] 14471 COMPLETE CBC W/ DIFF WBC 32461 Absolute Monocyte 742-7 456 /ul 024 [facility] [address] [place] [address] 57642 COMPLETE CBC W/ DIFF WBC 04380 Absolute Eosinophil 711-2 143 /ul 024 [facility] [address] [place] [address] 72974 COMPLETE CBC W/ DIFF WBC 20188 Absolute Basophil 704-7 14 /ul 024 [facility] [address] [place] [address] 31976 TRIGLYCERIDES 20924 Triglycerides 2571-8 173 mg/dL 024 [facility] [address] [place] [address] 86472 TRIGLYCERIDES 34801 VLDL 39626-2 35 mg/dL 024 [facility] [address] [place] [address] 33744 CHOLESTEROL 24218 Cholesterol 2093-3 177 mg/dL 024 [facility] [address] [place] [address] 57635 CHEM 14 (METABOLIC PANEL) 87672 Glucose 2345-7 138 mg/dL 024 [facility] [address] [place] [address] 57099 CHEM 14 (METABOLIC PANEL) 25614 BUN 3094-0 21 mg/dL 024 [facility] [address] [place] [address] 81139 CHEM 14 (METABOLIC PANEL) 24463 Creatinine 2160-0 0.8 mg/dL 024 [facility] [address] [place], [place] [address] CHEM 14 (METABOLIC PANEL) 24704 BUN/Creat Ratio 3097-3 25.7 024 [facility] [address] [place] [address] 13383 CHEM 14 (METABOLIC PANEL) 52277 GFR Estimated 17857-7 97 mL/min/1. 73m2 024 [facility] [address] [place] [address] 74168 CHEM 14 (METABOLIC PANEL) 52030 Sodium 2951-2 139 mmol/L 024 [facility] [address] [place] [address] 66571 CHEM 14 (METABOLIC PANEL) 05330 Potassium 2823-3 4.0 mmol/L 024 [facility] [address] [place] [address] 25407 CHEM 14 (METABOLIC PANEL) 73682 Chloride 2075-0 98 mmol/L 024 [facility] [address] [place] [address] 16757 CHEM 14 (METABOLIC PANEL) 63807 Total CO2 2028-9 30 mmol/L 024 [facility] [address] [place] [address] 66989 CHEM 14 (METABOLIC PANEL) 51426 Calculated Serum Osmolality 43387-3 293 mOsm/kg 024 [facility] [address] [place] [address] 31660 CHEM 14 (METABOLIC PANEL) 22575 Anion Gap 1863-0 15.0 mEq/L 024 [facility] [address] [place] [address] 10542 CHEM 14 (METABOLIC PANEL) 66004 Albumin 27266-7 3.1 g/dL 024 [facility] [address] [place] [address] 26784 CHEM 14 (METABOLIC PANEL) 60276 Total Protein 2885-2 7.5 g/dL 024 [facility] [address] [place] [address] 24949 CHEM 14 (METABOLIC PANEL) 27793 Globulin 2336-6 4.4 g/dL 024 [facility] [address] [place] [address] 99540 CHEM 14 (METABOLIC PANEL) 87165 Albumin/Globulin Ratio 1759-0 0.7 024 [facility] [address] [place] [address] 53302 CHEM 14 (METABOLIC PANEL) 11608 ALK PHOS 6768-6 66.00 U/L 024 [facility] [address] [place] [address] 64342 CHEM 14 (METABOLIC PANEL) 90388 SGOT/AST 1920-8 13 U/L 024 [facility] [address] [place] [address] CHEM 14 (METABOLIC PANEL) 49333 SGPT/ALT 1743-4 19 U/L 024 [facility] [address] [place] [address] CHEM 14 (METABOLIC PANEL) 99118 Total Bilirubin 1975-2 0.3 mg/dL 024 [facility] [address] [place] [address] CHEM 14 (METABOLIC PANEL) 30480 Calcium 84877-0 9.4 mg/dL 024 [facility] [address] [place] [address] CHEM 14 (METABOLIC PANEL) 46264 Corrected Calcium 05293-6 10.3 mg/dL 024 [facility] [address] [place] [address] PTH 20055 PTH 2731-8 21.7 pg/mL 024 [facility] [address] [place] [address] VITAMIN B-12 48487 Vitamin B12 2132-9 609 pg/mL 05/22 024 [facility] [address] [place] [address] [id number]-EASSEAUVTIAHL IN 4548-4 Glyco HGB A1C 17690-9 7.0 % 024 [facility] [address] [place] [address] 32803 [id number]-MPQJSEBJLSULR IN 4548-4 eAG 31644-2 154 mg/dL 024 [facility] [address] [place] [address] HDL - CHOL 02904 HDL 2085-9 30 mg/dL 024 [facility] [address] [place] [address] HDL - CHOL 75815 CHD 88236-6 17 % 024 [facility] [address] [place] [address] TSH 20654 TSH 22945-6 2.540 uIU/mL 024 [facility] [address] [place] [address] Direct LDL 13024 LDL-Direct 45971-4 117 mg/dL 024 [facility] [address] [place] [address] Procedures Procedure Codes Date Annual Wellness Visit (Initial Visit) CPT-4: G04 38 07/24/2024 FLU VACC CELL CULT PRSV FREE CPT-4: 83851 07/2024 Most recent A1c = 7.0% and < 8.0% CPT-4: 3051F 07/24/2024 FLUCEL VAX PFS VAC NO PRSV 0.5ML IM CPT-4: 98764 07/24/2024 Admin flu virus vaccine CPT-4: G0008 07/24/20 24 LEVEL OF ACTIVITY ASSESS CPT-4: 1003F 024 PT SCRN TBCO ID NON USER CPT-4: G9903 07/15 Current tobacco non-user CPT-4: 1036F 024 Amnt pain noted; none prsnt CPT-4: 1126F 07/15 MED LIST DOCD IN [facility] CPT-4: 1159F 07/24/2024 RVW MEDS BY RX/DR IN [facility] CPT-4: 116F 2023 Patient Screened for Future Fall Risk CPT-4: 110 0F 07/24/2024 Fall plan of care doc'd CPT-4: 0518F 07/24/20 24 Most recent A1c = 7.0% and < 8.0% CPT-4: 305F 06/24/2024 MED LIST DOCD IN [facility] CPT-4: 1159F 06/24/2024 RVW MEDS BY RX/DR IN [facility] CPT-4: 1160F 2023 Discharge Meds Reconciled w/ Current Med list CP T-4: 1111F 06/24/2024 Amnt pain noted; none prsnt CPT-4: 1126F 06/[address] CPT-4: 1159F 05/21/2024 RVW MEDS BY RX/DR IN [facility] CPT-4: 1160F 2023 Discharge Meds Reconciled w/ Current Med list CP T-4: 1111F 05/21/2024 Amnt pain noted; none prsnt CPT-4: 1126F 04/2024 Screening for clinical depre ssion is negative, follow-up plan not required CPT-4: G8510 05/21/2024 Patient Screened for Future Fall Risk CPT-4: 110 0F 05/21/2024 Fall plan of care doc'd CPT-4: 0518F 05/21/20 24 Cologuard CPT-4: 08568 Unknown E4S-Norflvjukbtvvpz CPT-4: 98719 Unknown Gastroenterology Referral SNOMED CT: 306 [id number] CPT-4: R12 Unknown Vital Signs Date Vital 07/24/2024 Blood Pressure 1: 120/82 Code: 8480-6 BMI: 32.3 Code: 56020-8 Heart Rate 1: 81 bpm Height: 6'4 Code: 8302-2 Respiratory Rate: 16 bpm SpO2: 97% Temperature: 36.1 (C) / 97.0 (F) Weight: 265 lbs Code: 99166-4 06/24/2024 Blood Pressure 1: 134/76 Code: 8480-6 BMI: 34.6 Code: 03727-3 Heart Rate 1: 86 bpm Height: 6'4 Code: 8302-2 Respiratory Rate: 17 bpm SpO2: 94% Temperature: 36.4 (C) / 97.6 (F) Weight: 284 lbs Code: 31982-6 05/21/2024 Blood Pressure 1: 135/82 Code: 8480-6 BMI: 32.3 Code: 15134-4 Heart Rate 1: 84 bpm Height: 6'4 Code: 8302-2 Respiratory Rate: 17 bpm SpO2: 93% Temperature: 35.6 (C) / 96.0 (F) Weight: 265 lbs Code: 66346-0 Reason For Visit Reason For Visit Effective [...] disease)[ICD10: K21.9] Diagnosis: Gastrostomy present[ICD10: Z93.1] 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] Diagnosis: At high risk for falls[ICD10: Z91.81] [facility] [address] [place] [address] CPT-4: G0438 4 (80180) Home or Residence Visit Est Pt - [...] ] Diagnosis: [ICD9: ] [facility] [address] [place] [address] CPT-4: 62336 4 (44578) Home or Residence Visit Est Pt - [...] Paroxysmal cough[ICD10: R05.8] [facility] [address] [place] [address] CPT-4: 32896 4 (06837) 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, 60 mins Diagnosis: Hemiparesis due to recent cerebrovascular accident (CVA)[ICD10: I69.359] Diagnosis: Gastrostomy present[ICD10: Z93.1] Diagnosis: Diabetes mellitus due to underlying condition with diabetic neuropathy, with long-term current use of insulin[ICD10: E08.40] Diagnosis: Hypertension with heart disease[ICD10: I11.9] Diagnosis: Dysphagia as late effect of cerebrovascular accident (CVA)[ICD10: I69.391] Diagnosis: [facility] (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[ICD10: Z79.4] Diagnosis: Dysarthria [...] examination with abnormal findings[ICD10: Z00.01] [facility] [address] [place] [address] CPT-4: 31193 4 Plan of Care Planned Activity Notes [...] insulin: Stable Hba1c 7.0. On Lantus Z79.4-V58.67 [facility] (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: On Lantus 15 [...] Pepcid 07/24/2024 Appointment: Sean Kyle WPtel: [address] [facility] E034 07/24/2024 Patient Education: Obesity Completed [...] On Lantus Z79.4-V58.67 [facility] (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 On Lantus 15 [...] At high risk for falls: at present [facility] bound. On PT/OT for strengthening, balance, coordination Z12.11-V76.51 Colon cancer screening: Orville R05.8-786.2 Paroxysmal cough: poss due to poor pharyngeal reflex, GERD . Try Protonix. Oropharyngeal suctioning. Order Suction Aspirator 06/24/2024 Appointment: Sean Kyle WPtel: [address] [place] [address] E034 06/24/2024 Patient Education: Obesity Completed 06/24/2024 Patient Education: Patient Medication Summary Completed 06/24/2024 Care Plan: [place]ville Ordered 06/15 Appointment: Oscar Hoyt WPtel: [address] [facility] [address] [id number] [place] Phone Call 06/20/2024 Appointment: Mony Moseley WPtel: [address] [place], [place] [phone] Phone Call 06/06/2024 Appointment: Mony Moseley WPtel: [address] [place], [place] [phone] Phone Call 05/26/2024 Visit Plan: I69.359-438.20 Hemiparesis [...] late effect of cerebrovascular accident (CVA) Z79.4- [facility] (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 I69.322-438.13 Dysarthria as [...] findings 05/21/2024 Appointment: Sean Kyle WPtel: [address] [facility] N034 05/21/2024 Patient Education: Patient Medication Summary Completed 05/21/2024 Patient Education: Obesity Completed 05/21/2024 Referral: [employer] WPtel: [address] [place] [address] [place] Referral faxed to: Agency Name: [employer] Agency Address: [address] [place] [address] Agency Phone #: [phone] Agency Agency will contact the patient to schedule Order Faxed Referral: Pending Medical Records Information [facility] requires Consent when requesting records, there i currently no consent on file for the patient can we get consent uploaded to [facility] so we can finish the request. thank you On Hold Awaiting Documentation Referral: [facility] WPtel: [address] [place], [place] [id number] [facility]- Dr Ruiz [address] [facility], [facility] [address] [address] Reprocess Referral: [facility] WPtel: [address] 05/22/2024 order faxed to agency. Not Taken Up Referral: [facility] WPtel: [address] [facility] [address] [place], [place] [id number] Referral ACT - Recert Referral: Pending Court Assistant Referral Information lvm , provided the above agency information. Instructed to call O&R department if they do not hear back from agency withing 7-10 days.05/22/24 no answer, lvm to cb Spoke with office HVS Referral faxed to:[employer] Agency Name: _[facility] [employer] [facility] Agency Address:_ [address], [place] [address] Agency Phone #:_ Agency _ Agency will contact the patient to schedule appointment. Order Faxed Referral: Sean Kyle WPtel: [address] [place] [address] [address] [facility] [place] Agency contacted, confirmed they're accepting new patients. They will run insurance once order is received Referral faxed to: Agency Name: [employer] Agency Address: [address] [facility], [facility] [address] [address] Agency Phone #:[phone] Agency Agency will ship to patient. pt has referral info Order Faxed Referral: [facility] WPtel: [address] [facility] [address] [place], [place] [id number] Referral ACT - Cert Referral: [facility] WPtel: [address] Notes & referral faxed to [facility] [phone] Order Faxed Referral: [employer]ending [employer] Order Information called and spoke to Nanette GUADALUPEA an advised contact number given Order Faxed Referral: Sean Kyle WPtel: [address] [facility] 06-24-2024. Called pt. spoke with Jenn [...] Jenn agree and never return a call. [employer] Confirmed Referral: Pending DME Order Information [...] insulin: Stable Hba1c 7.0. On Lantus Z79.4-V58.67 [facility] (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: On Lantus 15 [...] placed R05.8-786.2 Paroxysmal cough R26.9-781.2 Gait abnormality: [facility] . On PT progressing J45.909-493.90 Asthma [...] At high risk for falls: at present [facility] bound. 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
--- OUTSIDE RECORDS SUMMARY | 2024-11-25 20:47 | XMS_ITS | Clinical Summary ---
Author Organization [facility] Address [address] [place] [address] Care Team Providers Care Manager Personal Name Role Phone Sean Kyle MD Primary Care Provider [phone] Allergies Active Allergy Reactions Criticality Noted Date [...] Date Confusion 05/25/2024 Near syncope 05/22/2024 Asthma ([facility]) 05/22/2024 Dysphagia following cerebral infarction 03/19/20 24 Cerebrovascular accident ([facility]) 03/12 Staphylococcus aureus infection 02/08/2024 Hyperlipidemia 08/05/2020 [...] LDL-C. Mika EATON et al. RAFFI. 2013;310(19): 2972-4755 (http://education.[employer]/faq/USW519) CHOL/HDLC RATIO <5.0 (calc) 5.3High Non HDL [...] needs weight loss desperately and referred to manufacturing planner asked him to stop naproxen Atherosclerosis of coronary artery 01/23/2018 Overview (05/22/2024): Last Assessment & Plan: without angina needs more aggressive RFM continue aspirin Controlled type 2 diabetes francisco carney without complication, without long-term current use of insulin ([facility]) 09/28/2011 Resolved Problems Problem Noted Date Diagnosed [...] History of ETOH use prior to stroke [facility] Utilities Answer Date Recorded In the past 12 months has [employer], [employer], oil, or water [employer] threatened to shut off services in your [...] time in the past [address] [facility], were you homeless or living in a prison (including now)? Patient unable to answer 05/23/2024 [...] 73 05/25/2024 6:00 PM CDT Temperature 36.8 C (98.3 F) 05/25/2024 2:00 PM CDT Respiratory Rate 23 05/25/2024 6:00 PM CDT [...] (10 Years) 1960 Kidney Health Evaluation 1960 Diabetes: Retinopathy Eye Exam 1976 Hepatitis C 1976 DTaP, Tdap and Td Vaccines (1 - Tdap) 10/16/2007 10/15/2007 Zoster Vaccines (1 of 2) 2008 RSV Immunization or 60+ Years (1 - Risk 60-74 years 1-dose series) 2018 Pneumococcal Vaccine: 65+ Years (2 of 2 - PCV) 11/05/2019 11/05/2018, 02/29/2012 Annual Medicare Wellness Visit 2023 COVID-19 Vaccine (2 - season) 2024 09/17/2023 Influenza Adult (#1) 2024 09/17/2023, 06/29/2019, 09/03/2018, Additional history exists Hemoglobin A1C 11/22/2024 05/22/2024, 01/13, 09/17/2023, Additional history exists Lipid Panel 01/23/2025 01/24/2024 AAA SCREENING Completed 02/11/2019, 12/21/2017 Meningococcal B Vaccine Aged Out No l onger eligible based on patient's age to complete this topic Meningococcal Vaccine Aged Out No omar lloyd [...] 7.4(H) <5.7 % 05/23/2024 1:[address] [facility] Comment: ADA GUIDELINES 2010 5.7 TO 6.4% INCREASED RISK OF DIABETES > OR = 6.5% CONSISTENT WITH DIABETES ESTIMATED AVG GLUCOSE 166 mg/dL 05/23/2024 1:[address] [facility] 05/22/2024 6:25 PM CDT Yaritza Cowart NP LABORATORY Final Result [facility] [address] [place] [address], from Last 3 Months or Most Recently Relevant to Health Maintenance Insurance MEDICARE Advance Directives * Full Code (Latest Code Status on File) Date Activated Date Inactivated Comments 05/22/2024 11:15 PM 05/25/2024 9:20 PM Care Teams Manager Personal Relationship Specialty Start Date End Date Sean Kyle MD [address] [place] [id number] PCP - General INTERNAL MEDICINE 05/22/24
--- OUTSIDE RECORDS SUMMARY | 2024-11-25 20:47 | XMS_ITS | Encounter Summary ---
Author Organization [facility] Address [address] [place] [place] [address] Care Team Providers Care Craft Worker Name Role Phone Lisy Olmedo MD Primary Care Provide r Sylvain Daniels MD Primary Care Provider + [phone] None, Physician Primary Care Provider Unavailabl e Sylvain Daniels MD Unavailable [phone] Sylvain Daniels MD Unavailable [phone] Sylvain Daniels MD Unavailable [phone] Slyvain Daniels MD Primary Care Provider + [phone] Kiana Cole MD Primary Care Provider Sean Kyle MD Primary Care Provider [phone] Kiana Cole MD Primary Care Provider Reason for Visit * Reason Onset Date Comments MEDICATION REFILL 05/13/2021 Encounter Details Date Type Department Care Team (Late st Contact Info) Description 05/13/2021 Refill [facility] [address] [facility] [address] [place] [address] Lisy Olmedo MD [address] [place] [id number] MEDICATION REFILL Social History Tobacco Use Types [...] person have serious difficulty walking/climbing stairs? Yes-post [facility]; needs rehab to build activity level. 01/30/2018 [...] st Contact Info) Description 11/28/2024 9:00 AM SUPERVISOR RECORD PRESS Office Visit [facility] - Neurology [address] [place] [address] Aline Finch MD [address] [place] [address] 02/10/2025 10:00 AM CDT Office Visit [facility] - Cardiology [address] [address] Curly Lay MD [address] [address] documented as of this encounter Visit Diagnoses [...] documented as of this encounter Care Teams Craft Worker Relationship Specialty Start Date End Date Lisy Olmedo MD PCP - General 04/20/09 05/09/22 Sylvain Daniels MD PCP - General Family Medicine 05/10/22 02/14/24 [facility], Physician [address] [place] [address] PCP - General 02/15/24 05/16/24 Sylvain Daniels MD [address] [place] [address] PCP - Attributed-[employer] 05/15/22 10/01/22 Sylvain Daniels MD [address] [place] [address] PCP - Attributed-[employer] [address] 02/12/23 04/01/23 Sylvain Daniels MD [address] [place] [address] PCP - General Family Medicine 05/17/24 05/19/24 Kiana Cole MD [address] [place] [address] PCP - General Internal Medicine 05/22/24 08/04/24 Sean Kyle MD [address] [place] [address] PCP - General Internal Medicine 08/05/24 09/15/24 Kiana Cole MD [address] [place] [address] PCP - General Internal Medicine 09/16/24 Sylvain Daniels MD Family Medicine 02/15/24 documented as of this encounter
--- OUTSIDE RECORDS SUMMARY | 2024-11-25 20:47 | XMS_ITS | Data Portability ---
Author Organization [place] [facility] [employer], Main Office Address [address] [place] [address] Assessment Encounter Date Assessment Date Assessment LastModified by Organization Details LastModified Time 08/26/2024 08/26/2024 Removal of PEG tube today in the office. Instructed to remove occlusive dressing in 72 hours, f/u PRN. [email or web address] Not available 08/27/2024 12:12:08 11/06/2024 11/06/2024 This note is dictated and transcribed by [employer]. Oscillograph Technician variances may occur. Despite proofreading, typographical errors may occur. Occasional wrong-word or 'voong-u-wroa' substitutions may have occurred due to the inherent limitations of voice recording. Read the chart carefully and recognize, using context, where substitutions have occurred. [email or web address] Not available 11/06/2024 12:07:29 Plan of Treatment Reminders Order Date Submit Date Provider Last Modified By Organization Details Last Modified Time Details Appointments Establish ed Patient 15 2024 10:30A M Bernabe Rodriguez DPM Not available Not available Not available Lab None recorded. Referral None recorded. Procedures None recorded. Surgeries None recorded. Imaging None recorded. Medication Orders ketoconaz ole 2 % topical cream 2024 025 [id number], [address] [facility], [place], [place], [id number], 11/06/2024 12:09:37 Patient TargetsNo targets recorded. Patient Instructions Encounter Date Encounter Id Patient Instructions Last Modified By Organization Details Last Modified Time 11/06/2024 [id number] diabetic neuropathy education mayela Not available 11/06/2024 12:09:29 diabetes foot health: care instructions Not available 11/06/2024 12:09:29 Reason for Referral None Reported. Problems Name Problem SNOMED Code Status Onset Date Resolution Date Notes Provider Name and Address Organization Details Recorded Time Difficulty eating 278740825 Active 2023 Isaac varghese MD [address], [address], [place], [address], [employer] 4 12:12:51 Diabetic peripheral neuropathy 376077652 Active 2024 Bernabe Rodriguez DPM [address], [place], [address], [employer] 5 12:07:37 Onychomycosis of toenails 732968208 Active 2024 Bernabe Rodriguez DPM [address], [place], [address], [employer] 5 12:07:41 Diabetes mellitus 33607300 Active 2024 Bernabe Rodriguez DPM [address], [place], [address], [employer] 5 12:09:09 Hypertensive disorder 69814299 Active 2024 Bernabe Rodriguez DPM [address], [place], [address], [employer] 5 12:39:43 Asthma 736157291 Active 2024 Bernabe Rodriguez DPM [address], [place], [address], [employer] 5 12:39:52 Heart disease 43601414 Active 2024 Bernabe Rodriguez DPM [address], [place], [address], [employer] 5 12:40:04 Eczema 84992285 Active 2024 Bernabe Rodriguez DPM [address], [place], [address], [employer] 5 12:40:13 Cerebrovascula r accident 805669235 Active 2024 Bernabe Rodriguez DPM [address], [place], [address], [employer] 12:40:25 Disorder of eye 806950368 Active 2024 Bernabe Rodriguez DPM [address], [place], [address], [employer] 12:40:39 Problem Notes None recorded. Procedures Surgical History Date Name Laterality Status Provider Name and Address Organization Details Recorded Time Nail Debridement completed Bernabe Rodriguez DPM [address], [place], [address], [employer] 11/06/2024 12:07:26 4 Blank Procedure Note completed Isaac jama MD [address], [place], [address], [employer] 08/26/2024 17:27:52 4 other completed Andreia Dobson MA [place] [employer] [facility] [employer] 08/26/2024 11:53:51 other completed Andreia Dobson [place] [employer] [facility] [employer] 08/25/2024 10:57:07 Imaging Results None recorded. Procedure Notes None recorded. Medical Equipment None Reported. Allergies Allergen ID Allergen Name Allergen Category Reaction Reaction Severity Criticality Documentation Date Start Date Code Code System Note Provider Name and Address Organization Details Recorded Time 02031 lisinopri l medicatio n Not available Not available Not available 08/25/2024 65824 RxNorm DEYVI Proctor, [place] [employer] [facility] [employer] 4 10:57:24 17964 Product containin g penicilli n and antibioti c (product) medicatio n Not available Not available Not available 08/25/2024 99428 05 SNOMED DEYVI [place], [place] [facility] 4 10:57:59 Medications Name Sig Start Date Stop Date Status Note LastModified by Organization Details LastModified Time senharmeet s 8.6-50mg tablets TAKE 2 TABLETS BY [...] buspirone 5 mg tablet TAKE 1 TABLET TWICE DAILY VIA GIVE-TUBE active Not Available Not Available No t Available hydralazine 10 mg tablet TAKE 1 TABLET BY MOUTH THREE TIMES DAILY active Not Available Not Available Not Available ipratropium 0.5 mg-albuterol 3 mg (2.5 mg base)/3 mL nebulization soln INHALE 1 VIAL VIA NEBULIZER EVERY 6 HOURS active Not [...] Not Available Not Available N ot Available aspirin 81 mg chewable tablet GIVE 1 TABLET VIA ENTERAL TUBE EVERY DAY active Not Available Not Available No t Available folic acid 1 mg tablet TAKE 1 TABLET VIA ENTERAL TUBE EVERY DAY active Not Available Not Available No t Available polyethylene glycol 3350 17 gram/dose oral powder MIX 17 GRAMS WITH 8 OUNCES OF LIQUID AND DRINK ONCE EVERY DAY. HOLD FOR LOOSE STOOLS. active Not Available Not Available No t Available albuterol sulfate HFA 90 mcg/actuatio n aerosol inhaler INHALE 2 PUFFS EVERY 4 TO 6 HOURS active Not Available Not Available No t Available ketoconazole 2 % topical cream APPLY TOPICALLY TO THE AFFECTED AREAS ON THE TOENAILS ONCE DAILY. active Not Available Not Available Not Available loratadine 10 mg tablet TAKE 1 TABLET VIA GTUBE DAILY active Not Available Not Available Not Available guaifenesin active Not Available Not A vailable Not Available Tylenol active Not Available Not Avail able Not Available thiamine HCl (bulk) active Not Available Not Available Not Available BD Ultra-Fine Short Pen Needle 31 gauge x 5/16 USE FOR INJECTIONS THREE TIMES DAILY active Not Available Not Available No t Available Lantus Solostar U-100 Insulin 100 unit/mL (3 mL) subcutaneous pen ADMINISTER 15 UNITS UNDER THE SKIN EVERY NIGHT AT BEDTIME active Not Available Not Available No t Available Vitals Date Recorded Body height Body mass index (BMI) Body weight Provider Name and Address Organization Details Last Updated DateTime 08/26/2024 193.04 cm 32.3 kg/m2 039725.98 g Andreia Dobson MA [facility] [employer] 08/26/2024 11:52:41 Date Recorded Body height Body mass index (BMI) Body weight Provider Name and Address Organization Details Last Updated DateTime 11/06/2024 193.04 cm 32.3 kg/m2 306434.98 g Lucita Gotti [facility] [employer] 11/06/2024 11:25:08 Social History Question Answer Notes LastModified by Organizat ion Details LastModified Time Tobacco Smoking Status Former Smoker Andreia Dobson MA [facility], [facility] [employer] 08/25/2024 10:55:58 What Is Your Level Of Alcohol Consumption? None Information not available 08/25/2024 What Is Your Level Of Caffeine Consumption? None Information not available 08/26/2024 Are You Currently Employed? No Information not available 08/26/2024 What Was The Date Of Your Most Recent Tobacco Screening? 11/06/2024 Information not available 11/06/2024 Do You Use Any Illicit Or Recreational Drugs? No Information not available 08/26/2024 Has Tobacco Cessation Counseling Been Provided? No Information not available 11/06/2024 Do You Or Have You Ever Used Any Other Forms Of Tobacco Or Nicotine? No Information not available 11/06/2024 Sex: Unknown Functional Status None recorded. Mental Status None recorded. Family History Relationship Description Onset Age of this Age Resolved Age Notes LastModified by Organization Details LastModified Time Father Diabetes mellitus Not available 2023 10:51:31 Father Myocardial infarction Not available 08/25 10:52:10 Father Family history of stroke Not available 2024 12:11:56 Father Arthritis Not available 11/06/2024 12:12:18 Father Heart disease Not available 2024 12:12:36 Mother Hypertensive disorder [email or web address] Not available 2023 10:52:28 Mother Family history of malignant neoplasm of ovary [email or web address] Not available 2023 10:53:11 Mother Arthritis Not available 11/06/2024 12:12:18 Sister Diabetes mellitus victor [email or web address] Not available 2023 10:53:27 Sister Hypertensive disorder [email or web address] Not available 2023 10:53:48 Sister Arthritis Not available 11/06/2024 12:12:18 Medical History Condition Response GERD/NAUSEA Y SLEEP APNEA Y HEART DISEASE/HEART PROBLEMS Y DIABETES, TYPE Y CORONARY ARTERY DISEASE (CAD) Y HYPERTENSION Y STROKE/TIA Y Past Encounters Encounter ID Performer Location Encounter Start Date Encounter Closed Date Diagnosis/Indication Diagnosis SNOMED-CT Code Diagnosis ICD10 Code Diagnosis Note [id number] Isaac cordova MD [facility] General Surgery [address] [facility], [facility] [address] [place] [address] 08/26/2024 11:10:15 09/10/2024 11:42:25 Difficulty eating 632180103 R63.30 [id number] Bernabe Rodriguez DPM [facility] Podiatry [place] [address] [facility] [address] [place] [address] 11/06/2024 11:17:27 11/07/2024 13:46:01 Diabetes mellitus 46834186 E11.40 continue diabetic control per PCP recommenda tions Diabetic p eripheral neuropathy 848532421 E11.40 check feet daily for wounds infection present seek medical attention immediatel yFollow-up 3 months for diabetic foot care recommend supportive shoe gear daily Onychomyco sis of toenails 556776611 B35.1 Nails 1 through 10 were debrided with sharp mechanical debridemen t without incident. Nails were debrided and greater than 50% length and thickness where needed. Health Concerns Section Related Observation LastModified by Organization Detai ls LastModified Time None Recorded Concern Status LastModified by Organization Details LastModified Time None Recorded Advance Directives Directive None Recorded Payers Encounter Date Sequence Insurance Name Policy Number Policy Joe Covered Member ID Joe Member ID Guarantor Name 08/26/2024 1 [place] Yaya Vazquez Jr [id number] Yaya Vazquez 11/06/2024 1 [place] Yaya Vazquez Jr [id number] Yaya Vazquez Notes Date Note Type [...] flush twice daily. Isaac Ruiz MD [address] [facility], [address], [place], [address], [employer] 08/27/2024 12:13:21 11/06/2024 text/html . Patient is a 64-year-old male he presents to the office with his next of kin. Patient presents in a wheelchair. Patient recently had a stroke in January to which he is recovering. Patient is currently in physical therapy. Patient states he has muscle weakness and difficulty walking. Patient has numbness tingling and burning of the lower extremity. Patient denies any open wounds or infection. Patient states that he has toe contractures that he has had for several years he denies any pain to these toes. Patient states he has elongated thickened toenails which he is unable to cut. Patient denies any other complaints. Bernabe Rodriguez DPM [address] [facility], [address], [place], [address], [employer] 11/06/2024 12:41:11
--- OUTSIDE RECORDS SUMMARY | 2024-11-25 20:48 | XMS_ITS | Clinical Summary ---
Author Organization [facility] Address [address] [place] [address] Care Team Providers Care Meal Cooker Name Role Phone Sylvain Daniels MD Unavailable [phone] Kiana Cole MD Primary Care Provider Source Comments [facility],non-owned Affiliates and Associated Physician Practices is amultiple site organization consisting of ambulatory clinics and hospital sitesin [place], [place], [place] and [place]. This disclosure is being madepursuant to the Care Everywhere program and may not contain all information available regarding this patient. Last updated 18.[facility] Allergies Active Allergy Reactions Criticality [...] Refills Start Date End Date Status albuterol (Proventil;Ventol in) (2.5 MG/3ML) 0.083% nebulizer solution Inhale 2.5 [...] 2 times daily as needed 04/11/2024 Active albuterol-ipratro pium (Duo-Neb) 0.5-2.5 (3) MG/3ML nebulizer solutionIndicatio ns:Asthma Inhale 3 mL by mouth every 6 [...] 180 tablet 3 09/17/2024 Active insulin glargine (Lantus/Semglee) 100 units/mL pen Inject 11 (eleven) Units subcutaneously at bedtime 15 mL 3 09/17/2024 Active loratadine (Claritin) 10 MG tablet 1 (one) tablet by Per G Tube route once daily 90 tablet 3 09/17/2024 Active Active Problems Problem Noted Date Diagnosed Date Difficulty eating 08/26/2024 PVC (premature ventricular contraction) 08/12/20 Assessment & Plan (08/12/2024 11:02 AM CDT): Nonsustained VT, asx. I offered bB for suppression. Sister concerned about polypharmacy which I echo. Observe. 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 Seizure-like activity 05/26/2024 Basilar artery stenosis 05/26/2024 Cerebrovascular accident (CVA), unspecified mech anism 05/25/2024 Confusion 05/25/2024 Near syncope 05/22/2024 At high risk for falls 05/21/2024 Encounter for general adult medical examination with abnormal findings 05/21/2024 Diabetes mellitus due to und erlying condition with diabetic neuropathy, with long-term current use of insulin 05/21/2024 nursing home (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 05/21/2024 GERD (gastroesophageal reflux disease) Gait abnormality 05/21/2024 MONTY (obstructive sleep apnea) 05/21/2024 Urinary incontinence 05/21/2024 Obesity, unspecified 05/21/2024 Dysphagia following cerebral infarction 03/19/20 24 Impaired [...] of LDL-C. Mika SS et al. RAFFI. 2013;310(33): 2711-8685 (http://education.MyGoodPoints.4INFO/faq/OYQ876) CHOL/HDLC RATIO <5.0 (calc) 5.3High Non HDL [...] needs weight loss desperately and referred to fishing tool technician oil well asked him to stop naproxen Atherosclerosis of coronary artery 01/23/2018 Overview (10/28/2024): Last Assessment & Plan: without angina needs more aggressive RFM continue aspirin Controlled type 2 diabetes m ellitus without [...] Encounters Date Type Department Care Team Description 11/14/2024 Nurse Triage [facility] [address], [address] [place] [address] Kiana Cole MD Update 11/11/2024 Telephone [facility] [address] [facility] [address] [place] [address] Kiana Cole MD Opened In Error 11/07/2024 Nurse Triage [facility] [address], [address] [place] [address] Kiana Cole MD Order 10/28/2024 Travel 10/14/2024 Nurse Triage [facility] [address], [address] [place] [address] Kiana Cole MD Order 10/02/2024 Nurse Triage [facility] [address], [facility] [address] [place] [address] Kiana Cole MD Forms 10/02/2024 Nurse Triage [facility] [address], [facility] [address] [place] [address] Kiana Cole MD Constipation (/) 09/25/2024 Nurse Triage [facility] [address], [address] [address] Kiana Cole MD Update; Home Health 09/17/2024 8:00 AM FRUIT BAR MAKER Office Visit [facility] [address] [place] [address], [address] [phone] Kiana Cole MD Cerebrovascular accident (CVA), unspecified mechanism (HCC) (Primary Dx); Coronary artery disease involving yurok heart without angina pectoris, unspecified vessel or lesion type; S/P CABG x 3; Essential hypertension; Type 2 diabetes mellitus without complication, with long-term current use of insulin (HCC); Mild persistent asthma without complication (HCC) 09/17/2024 Travel 08/29/2024 9:00 AM FRUIT BAR MAKER Office Visit [facility] - Neurology [address] [facility], [facility] [place] [phone] Farhat Enamorado MD Cerebrovascular accident (CVA), unspecified mechanism (HCC) (Primary Dx) 08/29/2024 Travel from Last 3 Months Immunizations Name Administration Dates Next Due COVID PFIZER 12+YR 30MCG/0.3mL 09/17/2023 Covid Pfizer primary monoval ent 12+ yr 0.3mL Purple cap 09/17/2023 FLU VACCINE TRI IIV3 SPLIT IM (FLUVIRIN) 017 INFLUENZA VACCINE 06/29/2019,09/03/2018 INFLUENZA VACCINE, QUADR. (F LUZONE; FLULAVAL; [...] Recorded Patient Health Questionnaire-2 Score 0 09/17/2024 [facility] of Occupat ional Health - Occupational Stress [...] place to sleep or slept in a correction (including now)? No 05/26/2024 Education Answer Date [...] Comments Blood Pressure 124/83 09/17/2024 8:17 AM FRUIT BAR MAKER Pulse 101 09/17/2024 8:17 AM FRUIT BAR MAKER Temperature 35.8 C (96.5 F) 09/17/2024 8:17 AM FRUIT BAR MAKER Respiratory Rate 10 08/29/2024 8:44 AM FRUIT BAR MAKER Oxygen Saturation 96% 09/17/2024 8:17 AM FRUIT BAR MAKER Inhaled Oxygen Concentration 21% 02/15/2024 3 :17 PM CDT Weight 120.2 kg (265 lb) 09/17/2024 8:17 AM FRUIT BAR MAKER Height 193 cm (6' 4 ) 09/17/2024 8:17 AM FRUIT BAR MAKER Body Mass Index 32.26 09/17/2024 8:17 AM FRUIT BAR MAKER Plan of Treatment Upcoming Encounters Date Type Department Care Team (Late st Contact Info) Description 11/28/2024 9:00 AM FRUIT BAR MAKER Office Visit [facility] [facility] [place] [phone] Aline Finch MD [address] [place] [address] 02/10/2025 10:00 AM CDT Office Visit [facility] - Cardiology [address] [facility], [facility] [address] [place] [address] Curly Lay MD [address] [facility] [address] [place] [address] Health Maintenance Due Date Last Done Comments COLOGUARD (AGES 45-75) - COLON CA SCREENING 1960 CT COLONOGRAPHY - COLON CA SCREENING 1960 FIT - COLON CA SCREENING 1960 FLEX SIG - COLON CA SCREENING 1960 MEDICARE AWV 12 MONTHS 1960 ZOSTER VACCINE (1 of 2) 2008 DTAP/TDAP/TD VACCINES (2 - Td or Tdap) 10/15/2017 10/15/2007 Respiratory Syncytial Virus (RSV) Vaccine Pt: or over 60 yrs (1 - Risk 60-74 years 1-dose series) 2018 PNEUMOCOCCAL VACCINE 50+ (2 of 2 - PCV) 11/05/2019 11/05/2018, 02/29/2012 AAA SCREENING 2023 COVID-19 VACCINE ( season) 2024 09/17/2023, 09/17/2023, 03/31/2022, Additional history exists INFLUENZA VACCINE (#1) 2024 , 06/29/2019, 09/03/2018, Additional history exists DEPRESSION SCREENING 10/15/2024 05/22/2024, 10/18/2022, 05/10/2022 DIABETES - URINE PROTEIN SCREENING 10/15/2024 07/23/2020, 01/20/2019, 11/19/2015 DIABETES-HGB A1C 03/18/2025 09/17/2024, 05/2024, 05/22/2024, Additional history exists DIABETES-SERUM CREATININE 06/04/20252023, 06/03/2024, 06/02/2024, Additional history exists DIABETES-FOOT EXAM WITH MONOFILAMENT 09/17/2025 09/17/2024, 09/17/2023, 05/10/2022, Additional history exists DIABETES RETINOPATHY SCREENING 08/11/2026 08/11/2024 COLON MONITORING 11/12/2030 11/12/2020, 11/12/2020 COLONOSCOPY - COLON CA SCREENING 11/12/2030 11/12/2020, 11/12/2020 Colorectal Cancer Screening 11/12/2030 HEPATITIS C SCREENING Completed 07/23/2020 HEPATITIS B VACCINE Aged Out No longe r eligible based on patient's age to complete this topic HIB VACCINE Aged Out No longer eligi ble based on patient's age to complete this topic HPV VACCINE Aged Out No longer eligi ble based on patient's age to complete this topic MENINGOCOCCAL (Group B) VACCINE Aged Out No longer eligible based on patient's age to complete this topic MENINGOCOCCAL VACCINE Aged Out No omar lloyd eligible based on patient's age to complete this topic Procedures Procedure Name Priority Date/Time Associated Diagnosis Comments HEMOGLOBIN A1C - POINT OF CARE (AMB) [facility] Routine 09/17/2024 9:38 AM FRUIT BAR MAKER Type 2 diabetes mellitus without complication, with long-term current use of insulin (HCC) EYE EXAM 08/11/2024 BASIC METABOLIC PANEL (CALCIUM TOTAL) Routine 06/04/2024 11:30 AM CDT ENDOSCOPY, COLON, SCREENING Routine 11/12/2020 12:12 PM FRUIT BAR MAKER MICROALB/CREAT RATIO URINE RANDOM PANEL 07/23/2020 6:49 AM CDT HEPATITIS C AB W/RFLX TO HCV RNA QN PCR 07/23/2020 6:49 AM CDT from Last 3 Months or Most Recently Relevant to Health Maintenance Results * (ABNORMAL) HEMOGLOBIN A1C - POINT OF CARE (AMB) [facility] (09/17/2024 9:38 AM FRUIT BAR MAKER) Hemoglobin A1c POCT 6.2(A) 4.2 - 5.8 % QC Verified Yes Yes Blood BLOOD SPECIMEN / Unknown 09/17/2024 9:38 AM FRUIT BAR MAKER Kiana Cole MD LAB - POINT OF CARE ORDERABLES * EYE EXAM (08/11/2024) Anatomical Region Laterality Modality Other Narrative 08/11/2024 Ordered by an unspecified provider. Scanned Document SCANNING ONLY * (ABNORMAL) BASIC METABOLIC PANEL (CALCIUM TOTAL) (06/04/2024 11:30 AM CDT) [facility] BUN 18 7 - 26 mg/dL 06/04/2024 12:27 PM [facility] Creatinine 0.78 0.71 - 1.16 mg/dL 06/04/2024 12:27 PM [facility] Sodium 135(L) 136 - 145 mmol/L 06/04/2024 12:27 PM [facility] Potassium 4.1 3.5 - 4.5 mmol/L 06/04/2024 12:27 PM [facility] Chloride 102 98 - 107 mmol/L 06/04/2024 12:27 PM [facility] CO2 25 22 - 29 mmol/L 06/04/2024 12:27 PM [facility] Glucose 138(H) 70 - 115 mg/dL 06/04/2024 12:27 PM [facility] Calcium 9.6 8.4 - 10.2 mg/dL 06/04/2024 12:27 PM [facility] Anion Gap 8 6 - 16 06/04/2024 12:27 PM [facility] BUN/Creatinine Ratio 23 7 - 23 06/04/2024 12:27 PM [facility] Osmolality Calculated 284 275 - 295 mOsm/kg 06/04/2024 12:27 PM [facility] eGFR by CKD-EPI >90 >=90 mL/min/1.7 3 m2 06/04/2024 12:27 PM [facility] Blood BLOOD SPECIMEN / Unknown Lab Venipuncture / Unknown 06/04/2024 11:30 AM CDT 06/04/2024 11:51 AM CDT Jason Coppola MD LAB - CHEMISTRY [facility]RI[facility] Organization Address City/State/ZIP Co de Phone Number [facility] [address] [place] [address], [facility] [phone] * ENDOSCOPY, COLON, SCREENING (11/12/2020 12:12 PM FRUIT BAR MAKER) Report Endoscopy POC Endoscopy Department Report _ Patient Name: Yaya Vazquez Procedure Date: 11/12/2020 12:12 PM Date of : 1960 Classification: Outpatient Gender: Male Ethnicity: Not or Race: Black or _ Providers: Jodi Vernon MD, Lukas Gagnon (Fellow) Referring MD: Lisy Olmedo MD (Referring MD) Procedure: Colonoscopy Indications: Screening for colorectal malignant neoplasm Medications: Monitored Anesthesia Care Description of Procedure: Pre-Anesthesia Assessment: - Prior to the procedure, a History and Physical was performed, and patient medications and allergies were reviewed. The patient's tolerance of previous anesthesia was also reviewed. The risks and benefits of the procedure and the sedation options and risks were discussed with the patient. All questions were answered, and informed consent was obtained. Prior Anticoagulants: The patient has taken no previous anticoagulant or antiplatelet agents. ASA Grade Assessment: III - A patient with severe systemic disease. After reviewing the risks and benefits, the patient was deemed in satisfactory condition to undergo the procedure. After I obtained informed consent, the scope was passed under direct vision. Throughout the procedure, the patient's blood pressure, pulse, and oxygen saturations were monitored continuously. The [id number]-[id number] was introduced through the anus and advanced to the terminal ileum. The colonoscopy was performed without difficulty. The patient tolerated the procedure well. The quality of the bowel preparation was good. The terminal ileum, ileocecal valve, appendiceal orifice, and rectum were photographed. Findings: The perianal and digital rectal examinations were normal. Internal hemorrhoids were found during retroflexion. The hemorrhoids were mild. The exam was otherwise without abnormality. The terminal ileum appeared normal. Estimated Blood Loss: Estimated blood loss: none. Complications: No immediate complications. Impression: - Internal hemorrhoids. - The examination was otherwise normal. - The examined portion of the ileum was normal. - No specimens collected. - High blood pressure noted before the procedure. Recommendation: - Patient has a contact number available for emergencies. The signs and symptoms of potential delayed complications were discussed with the patient. Return to normal activities tomorrow. Written discharge instructions were provided to the patient. - Resume previous diet. - Continue present medications. - Repeat colonoscopy in 10 years for screening purposes. - Return to primary care physician as previously scheduled. Please discuss blood pressure management with your PCP. Attending Participation: I was present and participated during the entire procedure, including non-paula portions. Procedure Code(s): --- Professional --- G0121, Colorectal cancer screening; colonoscopy on individual not meeting criteria for high risk Diagnosis Code(s): --- Professional --- Z12.11, Encounter for screening for malignant neoplasm of colon K64.8, Other hemorrhoids CPT copyright 2019 [employer]. All rights reserved. The codes documented in this report are preliminary and upon primer inserting machine operator review may be revised to meet current compliance requirements. Jodi Vernon MD 11/12/2020 12:57:40 PM Note Initiated On: 11/12/2020 12:12 PM Number of Addenda: [address] PROVATION 11/12/2020 12:1 2 PM FRUIT BAR MAKER Jodi Vernon MD GI PROCEDURE ORDER GISSEL Performing Organization Address City/State/[facility] Co de Phone Number [facility] * HEPATITIS C AB W/RFLX TO HCV RNA QN PCR (07/23/2020 6:49 AM CDT) Hepatitis C Antibody NON-REACTI VE NON-REACT ELIDA [facility] Signal to Cut-Off 0.09 <1.00 [facility] Comment: HCV antibody was non-reactive. There is no laboratory evidence of HCV infection. In most cases, no further action is required. However, if recent HCV exposure is suspected, a test for HCV RNA (test code 89042) is suggested. For additional information please refer to http://education.eCozy/faq/EQO97j3 (This link is being provided for informational/ educational purposes only.) Test Performed at: [employer] [id number] EH PURVIS DO,MPH 07/23/2020 6:49 AM CDT 07/23/2020 6:51 AM CDT Lisy Olmedo MD LAB - FIELD MARKETING LEAD RY ORDERABLES Performing Organization Address [facility] Co de Phone Number [facility] [address] [place] [address] * MICROALB/CREAT RATIO URINE RANDOM PANEL (07/23/2020 6:49 AM CDT) Creatinine Urine 270 20 - 320 mg/dL [facility] Microalbumin Urine 6.0 mg/dL [facility] Comment: Reference Range Not established Microalbumin/Creat inine Ratio 22 <30 mcg/mg creat [facility] Comment: The ADA defines abnormalities in albumin excretion as follows: Category Result (mcg/mg creatinine) Normal <30 Microalbuminuria 30-299 Clinical albuminuria > OR = 300 The ADA recommends that at least two of three specimens collected within a 3-6 month period be abnormal before considering a patient to be within a diagnostic category. 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
--- OUTSIDE RECORDS SUMMARY | 2024-11-25 20:48 | XMS_ITS | Encounter Summary ---
Author Organization [facility] Health Address [address] [place] [address] Care Team Providers Care Scale Assembly Set Up Worker Name Role Phone Lisy Olmedo MD Primary Care Provide r Encounter Details Date Type Department Care Team (Latest Contact Info) Description 01/29/2018 2:26 PM CDT Hospital Encounter [facility] [address] [place] [id number] Ruby Valdez MD [facility] [address] [place] [phone] [employer] Social History Tobacco Use [...] Recorded Patient Health Questionnaire-2 Score 0 09/17/2024 [facility] of Occupat ional Health - Occupational [...] place to sleep or slept in a intermediate (including now)? No 05/26/2024 Education Answer Date [...] Coronavirus/COVID-19? No / Unsure 10/18/2022 9:47 AM COMMERCIAL CREDIT PORTFOLIO MANAGER documented as of this encounter Plan of Treatment Upcoming Encounters Date Type Department Care Team (Late st Contact Info) Description 11/28/2024 9:00 AM COMMERCIAL CREDIT PORTFOLIO MANAGER Office Visit [facility] - Neurology [address] [facility] [place] [address] Aline Finch MD [address] [place] [address] 02/10/2025 10:00 AM CDT Office Visit [facility] - Cardiology [address] [facility], [address] [address] Curly Lay MD [address] [place] [address] documented as of this encounter Visit Diagnoses Not on filedocumented in this encounter Additional Health Concerns Infection Onset Date Last Indicated Resolved Time COVID-19 Under Investigation 07/26/2022 07/26/2022 07/26/2022 5:54 PM CDT COVID-19 Under Investigation 04/10/2024 04/10/2024 04/10/2024 2:48 PM CDT documented as of this encounter Care Teams Scale Assembly Set Up Worker Relationship Specialty Start Date End Date Lisy Olmedo MD PCP - General 04/20/09 05/09/22 documented as of this encounter
--- OUTSIDE RECORDS SUMMARY | 2024-11-25 20:48 | XMS_ITS | Referral Summary ---
Author Organization [facility] Address [address] [facility] [place] [address] Care Team Prov[address] Care Court Registry Officer Name Role Phone Sylvain Daniels MD Unavailable [phone] Kiana Cole MD Primary Care Provider Source Comments [facility],non-owned Affiliates and Associated Physician Practices is amultiple site organization consisting of ambulatory clinics and hospital sitesin [place], [place], [place] and [place]. This disclosure is being madepursuant to the Care Everywhere program and may not contain all information available regarding this patient. Last updated 18.[facility] Encounters Date Type Department Care Team Description 11/14/2024 Nurse Triage [facility] [address] [facility] [address], [facility] [address] [place] [address] Kiana Cole MD Update 11/11/2024 Telephone [facility] [address] [facility], [address] [address] Kiana Cole MD Opened In Error 11/07/2024 Nurse Triage [facility] [address], [address] [place] [address] Kiana Cole MD Order 10/28/2024 Travel 10/14/2024 Nurse Triage [facility] [address], [facility] [address] [place] [address] Kiana Cole MD Order 10/02/2024 Nurse Triage [facility] [address], [address] [place] [address] Kiana Cole MD Forms 10/02/2024 Nurse Triage [facility] [address], [address] [place] [address] Kiana Coel MD Constipation (/) 09/25/2024 Nurse Triage [facility] [address], [facility] [address] [place] [address] Kiana Cole MD Update; Home Health 09/17/2024 Travel 09/17/2024 8:00 AM CONDUCTOR/ENGINEER Office Visit [facility] [address] [place] [address], [address] [phone] Kiana Cole MD Cerebrovascular accident (CVA), unspecified mechanism (HCC) (Primary Dx); Coronary artery disease involving cahuilla heart without angina pectoris, unspecified vessel or lesion type; S/P CABG x 3; Essential hypertension; Type 2 diabetes mellitus without complication, with long-term current use of insulin (HCC); Mild persistent asthma without complication (HCC) 08/29/2024 Travel 08/29/2024 9:00 AM CONDUCTOR/ENGINEER Office Visit [facility] - Neurology [address] [facility], [facility] [place] [phone] Farhat Enamorado MD Cerebrovascular accident (CVA), unspecified mechanism (HCC) (Primary Dx) from Last 3 Months Allergies Active Allergy [...] with long-term current use of insulin 05/21/2024 senior living (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 Mika EATON et al. RAFFI. 2013;310(19): 5717-4260 (http://education.This Week In.EZ-Apps/faq/CVQ216) CHOL/HDLC RATIO <5.0 (calc) 5.3High Non HDL [...] needs weight loss desperately and referred to pneumatic jacketer asked him to stop naproxen Atherosclerosis of [...] Recorded Patient Health Questionnaire-2 Score 0 09/17/2024 [facility] - Occupational [...] place to sleep or slept in a halfway (including now)? No 05/26/2024 Education Answer Date [...] Comments Blood Pressure 124/83 09/17/2024 8:17 AM CONDUCTOR/ENGINEER Pulse 101 09/17/2024 8:17 AM CONDUCTOR/ENGINEER Temperature 35.8 C (96.5 F) 09/17/2024 8:17 AM CONDUCTOR/ENGINEER Respiratory Rate 10 08/29/2024 8:44 AM CONDUCTOR/ENGINEER Oxygen Saturation 96% 09/17/2024 8:17 AM CONDUCTOR/ENGINEER Inhaled Oxygen Concentration 21% 02/15/2024 3 :17 PM CDT Weight 120.2 kg (265 lb) 09/17/2024 8:17 AM CONDUCTOR/ENGINEER Height 193 cm (6' 4 ) 09/17/2024 8:17 AM CONDUCTOR/ENGINEER Body Mass Index 32.26 09/17/2024 8:17 AM CONDUCTOR/ENGINEER Functional Status Functional Status Response Date of [...] st Contact Info) Description 11/28/2024 9:00 AM CONDUCTOR/ENGINEER Office Visit [facility] - Neurology [address] [facility] [place] [address] Aline Finch MD [address] [place] [address] 02/10/2025 10:00 AM CDT Office Visit [facility] - Cardiology [address] [facility], [facility] [address] [place] [address] Curly Lay MD [address] [facility] [address] [place] [address] Procedures Procedure Name Priority Date/Time Associated Diagnosis Comments HEMOGLOBIN A1C - POINT OF CARE (AMB) [facility] Routine 09/17/2024 9:38 AM CONDUCTOR/ENGINEER Type 2 diabetes mellitus without complication, with long-term current use of insulin (HCC) EYE EXAM 08/11/2024 BASIC METABOLIC PANEL (CALCIUM TOTAL) Routine 06/04/2024 11:30 AM CDT ENDOSCOPY, COLON, SCREENING Routine 11/12/2020 12:12 PM CONDUCTOR/ENGINEER MICROALB/CREAT RATIO URINE RANDOM PANEL 07/23/2020 6:49 AM CDT HEPATITIS C AB W/RFLX TO HCV RNA QN PCR 07/23/2020 6:49 AM CDT from Last 3 Months or Most Recently Relevant to Health Maintenance Results * (ABNORMAL) HEMOGLOBIN A1C - POINT OF CARE (AMB) [facility] (09/17/2024 9:38 AM CONDUCTOR/ENGINEER) Hemoglobin A1c POCT 6.2(A) 4.2 - 5.8 % QC Verified Yes Yes Blood BLOOD SPECIMEN / Unknown 09/17/2024 9:38 AM CONDUCTOR/ENGINEER Kiana Cole MD LAB - POINT OF CARE ORDERABLES * EYE EXAM (08/11/2024) Anatomical Region Laterality Modality Other Narrative 08/11/2024 Ordered by an unspecified provider. Scanned Document SCANNING ONLY * (ABNORMAL) BASIC METABOLIC PANEL (CALCIUM TOTAL) (06/04/2024 11:30 AM CDT) BUN 18 7 - 26 mg/dL 06/04/2024 12:27 PM [facility] Creatinine 0.78 0.71 - 1.16 mg/dL 06/04/2024 12:27 PM [facility] Sodium 135(L) 136 - 145 mmol/L 06/04/2024 12:27 PM [facility] Potassium 4.1 3.5 - 4.5 mmol/L 06/04/2024 12:27 PM [facility] Chloride 102 98 - 107 mmol/L 06/04/2024 12:27 PM [facility] CO2 25 22 - 29 mmol/L 06/04/2024 12:27 PM [facility] Glucose 138(H) 70 - 115 mg/dL 06/04/2024 12:27 PM [facility] Calcium 9.6 8.4 - 10.2 mg/dL 06/04/2024 12:27 PM [facility] Anion Gap 8 6 - 16 06/04/2024 12:27 PM [facility] BUN/Creatinine Ratio 23 7 - 23 06/04/2024 12:27 PM [facility] Osmolality Calculated 284 275 - 295 mOsm/kg 06/04/2024 12:27 PM [facility] eGFR by CKD-EPI >90 >=90 mL/min/1.7 3 m2 06/04/2024 12:27 PM [facility] Blood BLOOD SPECIMEN / Unknown Lab Venipuncture / Unknown 06/04/2024 11:30 AM CDT 06/04/2024 11:51 AM CDT Jason Coppola MD LAB - CHEMISTRY [facility] Organization Address City/State/ZIP Co de Phone Number [address] [address], [facility] [phone] * ENDOSCOPY, COLON, SCREENING (11/12/2020 12:12 PM CONDUCTOR/ENGINEER) Report Endoscopy POC Endoscopy Department Report _ [...] colon K64.8, Other hemorrhoids CPT copyright 2019 [employer]. All rights reserved. The codes documented in this report are preliminary and upon bench patternmaker metal review may be revised to meet current compliance requirements. Jodi Vernon MD 11/12/2020 12:57:40 PM Note Initiated On: 11/12/2020 12:12 PM Number of Addenda: [address] [address] [facility] 11/12/2020 12:1 2 PM CONDUCTOR/ENGINEER Jodi Vernon MD GI PROCEDURE ORDER GIS[facility] * HEPATITIS C AB W/RFLX TO [...] a test for HCV RNA (test code 16966) is suggested. For additional information please refer to http://education.TroopSwap/faq/QCY49m7 (This link is being provided for informational/ educational purposes only.) Test Performed at: [facility] [id number] [address] [employer] [facility] [id number] EH PURVIS DO,MPH 07/23/2020 6:49 AM CDT 07/23/2020 6:51 AM CDT Lisy Olmedo MD LAB - BENZENE WASHER OPERATOR RY ORDERABLES Performing Organization Address [facility] Co de Phone Number [facility] [address] [place] [address] * MICROALB/CREAT RATIO URINE RANDOM PANEL (07/23/2020 [...] within a diagnostic category. Test Performed at: [facility] [id number] [facility] [address] EH PURVIS DO,MPH 07/23/2020 6:49 AM CDT 07/23/2020 6:51 AM CDT Lisy Olmedo MD LAB - URINE C HEMISTRY ORDERABLES [facility] [id number] [place] [address] from Last 3 Months or Most Recently Relevant to Health Maintenance Advance Directives Documents on File Type Date Recorded Patient Dredge Captain Expl anation Durable HCPOA 09/17/2024 4:08 PM [...] Communication Jenn (POA) Rafi Sister Power of Bicycle Designer (P OA) Care Teams Court Registry Officer Relationship Specialty Start Date End Date Kiana Cole MD [address] [place] [address] PCP - General Internal Medicine 09/16/24 Sylvain Daniels MD Family Medicine 02/15/24
--- OUTSIDE RECORDS SUMMARY | 2024-11-25 20:48 | XMS_ITS | Patient Health Summary ---
Author Organization [facility] Address [address] [place] [address] Care Team Providers Care Corporate Administrator Name Role Phone Sylvain Daniels MD Unavailable [phone] Kiana Cole MD Primary Care Provider Note from [facility],non-owned Affiliates and Associated Physician Practices is amultiple site organization consisting of ambulatory clinics and hospital sitesin [place], [place], [place] and [place]. This disclosure is being madepursuant to the Care Everywhere program and may not contain all information available regarding this patient. Last updated 18.[facility] Allergies * Lisinopril(Angioedema) -High Criticality * Lisinopril(Other,Urticaria) [...] route once daily 3 refills by 09/17/2025 Active Problems Problem Noted Date Diagnosed Date Difficulty eating 08/26/2024 PVC (premature ventricular contraction) 08/12/20 24 Diplopia 07/24/2024 Hypertension with heart disease 07/24/2024 [...] (CVA) 06/24/2024 H/O: CVA (cerebrovascular accident) 05/26/2024 Seizure-like activity 05/26/2024 Basilar artery stenosis 05/26/2024 Cerebrovascular accident (CVA), unspecified mech anism 05/25/2024 Confusion 05/25/2024 Near syncope 05/22/2024 At high risk for falls 05/21/2024 Encounter for general adult medical examination with abnormal findings 05/21/2024 Diabetes mellitus due to und erlying condition with diabetic neuropathy, with long-term current use of insulin 05/21/2024 MCC (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 05/21/2024 GERD (gastroesophageal [...] (coronary artery disease) 01/23/2018 Essential hypertension 01/23/2018 Atherosclerosis of coronary artery 01/23/2018 Controlled type 2 diabetes m ellitus [...] TRI IIV3 SPLIT IM (FLUVIRIN)(Given 10/11/2017) * INFLUENZA VACCINE(Given 06/29/2019, 09/03/2018) * INFLUENZA VACCINE, QUADR. (FLUZONE; [...] Recorded Patient Health Questionnaire-2 Score 0 09/17/2024 [facility] - [...] place to sleep or slept in a penitentiary (including now)? No 05/26/2024 Education Answer Date [...] Comments Blood Pressure 124/83 09/17/2024 8:17 AM BILLING MANAGER Pulse 101 09/17/2024 8:17 AM BILLING MANAGER Temperature 35.8 C (96.5 F) 09/17/2024 8:17 AM BILLING MANAGER Respiratory Rate 10 08/29/2024 8:44 AM BILLING MANAGER Oxygen Saturation 96% 09/17/2024 8:17 AM BILLING MANAGER Inhaled Oxygen Concentration 21% 02/15/2024 3 :17 PM CDT Weight 120.2 kg (265 lb) 09/17/2024 8:17 AM BILLING MANAGER Height 193 cm (6' 4 ) 09/17/2024 8:17 AM BILLING MANAGER Body Mass Index 32.26 09/17/2024 8:17 AM BILLING MANAGER Procedures * HEMOGLOBIN A1C - POINT OF [...] * CT HEAD WO CONTRAST(Performed 03/19/2024) * ME EGD FLEX TRANSORAL W PLCMT GTUBE PERC(Performed [...] GLUCOSE - POINT OF CARE(Performed 01/30/2024) * ME EGD FLEX TRANSORAL W PLCMT GTUBE PERC(Performed [...] complication, without long-term current use of insulin ([facility]) * HEMOGLOBIN A1C - POINT OF CARE (AMB)(Performed 10/18/2022) Performed for Controlled type 2 diabetes mellitus without complication, without long-term current use of insulin ([facility]) * EKG 12-LEAD(Performed 10/18/2022) Performed for Coronary artery disease involving coronary bypass graft of [place] heart with unstableangina pectoris ([facility]), S/P CABG x 3 * HEMOGLOBIN A1C - POINT OF CARE (AMB)(Performed 08/03/2022) Performed for Type 2 diabetes mellitus with other circulatory complication, without long-term current use of insulin ([facility]) * GLUCOSE - POINT OF CARE(Performed 07/28/2022) [...] artery disease involving coronary bypass graft of [place] heart with unstableangina pectoris (HCC), Essential hypertension, [...] complication, without long-term current use of insulin ([facility]) * CBC W AUTO DIFFERENTIAL(Performed 12/24/2019) Performed for Fatigue, unspecified type * COMPREHENSIVE METABOLIC PANEL(Performed 12/24/2019) Performed for Essential hypertension * IMAGING/RADIOLOGY/XRAY RESULTS ORDER(Performed 12/24/2019) * HEMOGLOBIN A1C - POINT OF CARE (AMB) [facility](Performed 11/17/2019) Performed for Type 2 diabetes mellitus with other circulatory complication, without long-term current use of insulin ([facility]) * CT ANGIO AORTIC ROOT(Performed 02/11/2019) Performed for Coronary artery disease involving coronary bypass graft of [place] heart with unstableangina pectoris ([facility]), Essential hypertension, Coronary artery disease involving [place] coronary artery of [place] heart with angina pectoris ([facility]), Type 2 diabetes mellitus with other circulatory complication, without long-term current use of insulin ([facility]), S/P CABG x 3, Hypertension, unspecified type, Aortic dilatation ([facility]) * CREATININE BLOOD - POCT (IP) [facility](Performed 02/11/2019) Performed for Coronary artery disease involving coronary bypass graft of [place] heart with unstableangina pectoris ([facility]) * HEMOGLOBIN A1C - POINT OF CARE (AMB) [facility](Performed 01/23/2019) Performed for Controlled type 2 diabetes mellitus without complication, without long-term current use of insulin ([facility]) * MICROALB/CREAT RATIO URINE RANDOM PANEL(Performed 01/20/2019) [...] artery disease involving coronary bypass graft of [place] heart with unstableangina pectoris (HCC), S/P CABG [...] artery disease involving coronary bypass graft of [place] heart with unstableangina pectoris (HCC), Hypertension, unspecified [...] artery disease involving coronary bypass graft of [place] heart with unstableangina pectoris (HCC) * GLUCOSE [...] POINT OF CARE (AMB) [facility](Performed 02/29/2012) * ME EGD FLEX TRANSORAL W PLCMT GTUBE PERC Results * (ABNORMAL) HEMOGLOBIN A1C - POINT OF CARE (AMB) [facility] (09/17/2024 9:38 AM BILLING MANAGER) Hemoglobin A1c POCT 6.2(A) 4.2 - 5.8 % QC Verified Yes Yes Blood BLOOD SPECIMEN / Unknown 09/17/2024 9:38 AM BILLING MANAGER Kiana Cole MD LAB - POINT OF [...] of198 resultswithin the time period is included. Pathologist [facility] Glucose WB/POC 120(H) 70 - 115 mg/dL 06/04/2024 7:23 PM CDT [facility] Specimen Type Cap Fingerstick 2023 7:23 PM CDT [facility] Blood BLOOD SPECIMEN / Unknown 06/04/2024 4:42 PM CDT 06/04/2024 7:23 PM CDT Farhat Enamorado MD LAB - POINT OF CARE ORDERABLES Performing Organization Address City/State/[facility] Co de Phone Number [facility] [address] [place] [phone], [facility] [phone] * (ABNORMAL) CBC W/O DIFFERENTIAL (06/04/2024 11:30 AM CDT) Only the most recent of27 resultswithin the time period is included. Pathologist [facility] WBC 7.7 4.0 - 10.7 x10E9/L 06/04/2024 11:57 AM CDT [facility] RBC Count 4.14(L) 4.30 - 5.80 x10E12/L 06/04/2024 11:57 AM [facility] Hemoglobin 10.9(L) 13.3 - 17.5 g/dL 06/04/2024 11:57 AM [facility] Hematocrit 34.3(L) 38.7 - 51.1 % 06/04/2024 11:57 AM [facility] MCV 82.9 80.0 - 98.0 fL 06/04/2024 11:57 AM [facility] MCH 26.3(L) 26.7 - 33.6 pg 06/04/2024 11:57 AM [facility] MCHC 31.8 31.7 - 36.3 g/dL 06/04/2024 11:57 AM [facility] RDW-CV 14.8 11.3 - 14.8 % 06/04/2024 11:57 AM [facility] Platelet Count 292 150 - 420 x10E9/L 06/04/2024 11:57 AM [facility] MPV 9.4 7.8 - 11.4 fL 06/04/2024 11:57 AM [facility] Blood BLOOD SPECIMEN / Unknown Lab Venipuncture / Unknown 06/04/2024 11:30 AM CDT 06/04/2024 11:51 AM CDT Jason Coppola MD LAB - HEMATOLOGY ORD ERABLES [facility] [address] [place] [phone], [facility] [phone] * (ABNORMAL) BASIC METABOLIC PANEL (CALCIUM TOTAL) (06/04/2024 11:30 AM CDT) Only the most recent of54 resultswithin the time period is included. BUN 18 7 - 26 mg/dL 06/04/2024 12:27 PM [facility] Creatinine 0.78 0.71 - 1.16 mg/dL 06/04/2024 12:27 PM [facility] Sodium 135(L) 136 - 145 mmol/L 06/04/2024 12:27 PM [facility] Potassium 4.1 3.5 - 4.5 mmol/L 06/04/2024 12:27 PM [facility] Chloride 102 98 - 107 mmol/L 06/04/2024 12:27 PM [facility] CO2 25 22 - 29 mmol/L 06/04/2024 12:27 PM [facility] Glucose 138(H) 70 - 115 mg/dL 06/04/2024 12:27 PM [facility] Calcium 9.6 8.4 - 10.2 mg/dL 06/04/2024 12:27 PM [facility] Anion Gap 8 6 - 16 06/04/2024 12:27 PM [facility] BUN/Creatinine Ratio 23 7 - 23 06/04/2024 12:27 PM [facility] Osmolality Calculated 284 275 - 295 mOsm/kg 06/04/2024 12:27 PM [facility] eGFR by CKD-EPI >90 >=90 mL/min/1.7 3 m2 06/04/2024 12:27 PM [facility] Blood BLOOD SPECIMEN / Unknown Lab Venipuncture / Unknown 06/04/2024 11:30 AM CDT 06/04/2024 11:51 AM CDT Jason Coppola MD LAB - CHEMISTRY ORDAnirudh RAZO [address] [address], [facility] [phone] * PHOSPHORUS BLOOD (06/04/2024 11:30 AM CDT) Only the most recent of48 resultswithin the time period is included. Phosphorus 4.3 2.8 - 5.1 mg/dL 06/04/2024 12:27 PM T [facility] Blood BLOOD SPECIMEN / Unknown Lab Venipuncture / Unknown 06/04/2024 11:30 AM CDT 06/04/2024 11:51 AM CDT Jason Coppola MD LAB - CHEMISTRY CHRISTIAN RAZO [address] [address], [facility] [phone] * MAGNESIUM BLOOD (06/04/2024 11:30 AM CDT) Only the most recent of54 resultswithin the time period is included. Pathologist [facility] Magnesium 1.6 1.6 - 2.6 mg/dL 06/04/2024 12:27 PM CDT [facility] Blood BLOOD SPECIMEN / Unknown Lab Venipuncture / Unknown 06/04/2024 11:30 AM CDT 06/04/2024 11:51 AM CDT Jason Coppola MD LAB - CHEMISTRY SARAHE DUNG [facility] [address] [place] [address], [facility] [phone] * ECHO COMPLETE W CONTRAST W BUBBLE STUDY (06/03/2024 3:15 PM CDT) Only the most recent of2 resultswithin the time period is included. Pathologist [facility] LA vol index 0.013 l/m [facility] CV FUJI PACS LA vol BP [...] PACS LVOT VTI 12.263 cm [facility] CV FUJ I PACS RVIDd 3.519 cm [facility] CV FUJ I PACS RVOT diam Doppler 1.833 cm [facility] CV FUJI PACS RVOT pk richard 84.812 cm/s [facility] CV F UJI PACS RVOT VTI 12.156 cm [facility] CV FUJ I PACS LA size 3.649 cm [facility] CV FUJ I PACS AV mn grad 4.064 mmHg [facility] CV FU JI PACS AV pk richard 148.818 cm/s [facility] CV FUJ I PACS AV VTI 19.035 cm [facility] CV FUJ I PACS MV A pk richard 68.508 cm/s [facility] CV F UJI PACS MV E pk richard 44.33 cm/s [facility] CV F UJI PACS MV E' lateral richard 9.638 cm/s [facility] CV FUJI PACS MV mn grad 1.466 mmHg [facility] CV FU JI PACS MV VTI 21.081 cm [facility] CV FUJ I PACS PV pk richard 96.329 cm/s [facility] CV FUJ I PACS PV VTI 12.497 cm [facility] CV FUJ I PACS TAPSE 1.413 cm [facility] CV FUJ I PACS Ascending aorta 3.385 cm [facility] CV FUJI PACS IVC Diam Expiration 0.57 cm [facility] CV FUJI PACS Anatomical Region Laterality Modality Ultrasound 06/03/2024 1:14 PM CDT Narrative 06/03/2024 4:03 PM CDT Summary * Left ventricle is normal in [...] 1:14 PM Patient Status: I/P Study Site: [facility] Primary Location: [facility] Technical Quality: Adequate Exam Type: ECHO COMPLETE W CONTRAST W BUBBLE STUDY Indications R55 - Syncope, unspecified syncope type Procedure(s) * A complete 2D, color Doppler, spectral Doppler and M-Mode transthoracic echocardiogram was performed. Contrast/Agitated Saline Contrast / Saline: Definity Amount: 0.50 ml Administered By: Isabella Cisneros Reaction to Contrast: no Contrast / Saline: Agitated Saline Amount: 20.00 ml Administered By: Isabella Burril Reaction to Contrast: no Staff Referring Physician: Perfecto Hatch Ordering Provider: Perfecto Hatch Attending Physician: Perfecto Hatch Vacuum Plastic Forming Machine Operator: Isabella Cisneros Left Ventricle Left ventricular systolic [...] dysfunction and normal left atrial filling pressure. Right Ventricle The right ventricle is normal in size. Right ventricular systolic function is reduced. Left Atrium The left atrium is normal in size with a left atrial volume index of 13 ml/m2 by BP MOD. Right Atrium The right atrium is normal in size. Atrial Septum Intact interatrial septum visualized by 2D and color Doppler imaging. Agitated saline contrast study at rest and with Valsalva is negative for a shunt. Aortic Valve The aortic valve is [...] no significant mitral valve regurgitation. Tricuspid Valve The [...] right atrial pressure of 3 mmHg. Pericardium/Pleural There is no pericardial effusion. Aorta [...] by Lulu Greenwood on 06/03/2024 04:03 PM Procedure Note Lulu [...] 1:14 PM Patient Status: I/P Study Site: [facility] Primary Location: [facility] EStud Info Technical Quality: Adequate Exam Type: ECHO COMPLETE W CONTRAST W BUBBLE STUDY Indications R55 - Syncope, unspecified syncope type Procedure(s) * A complete 2D, color Doppler, spectral Doppler and M-Modetransthoracic echocardiogram was performed. Contrast/Agitated Saline Contrast / Saline: Definity Amount: 0.50 ml Administered By: Isabella Pouncil Reaction to Contrast: no Contrast / Saline: Agitated Saline Amount: 20.00 ml Administered By: Isabella Pouncil Reaction to Contrast: no Staff Referring Physician: Perfecto Hatch Ordering Provider: Perfecto Hatch Attending Physician: Perfecto Hatch Vacuum Plastic Forming Machine Operator: Isabella Cisneros Left Ventricle Left ventricular systolic [...] LA Volume Index (BP MOD) 13 ml/m2 1634 Report Signatures Finalized by Lulu Greenwood on 06/03/2024 04:03 PM Perfecto Hatch STRATEGIC PARTNER DEVELOPMENT MANAGER-MILITARY PILOT ECHO CUPID * FL SWALLOWING FUNCTION STUDY [...] PM Narrative 06/03/2024 4:35 PM CDT PROCEDURE: FL SWALLOWING FUNCTION STUDY DATE/TIME OF [...] DOSE: 3.09 mGy Reference air kerma (ka,r). Procedure Note [...] of3 resultswithin the time period is included. [facility] TSH 2.381 0.350 - 4.940 uIU/mL 05/30/2024 11:01 AM CDT [facility] Blood BLOOD SPECIMEN / Unknown Lab Venipuncture / Unknown 05/30/2024 4:32 AM CDT 05/30/2024 5:01 AM CDT Jason Coppola MD LAB - CHEMISTRY CHRISTIAN RAZO [address] [address], [facility] [phone] * EKG 12-LEAD (05/29/2024 8:41 AM CDT) Only the most recent of8 resultswithin the time period is included. [facility] Ventricular Rate 75 BPM [facility] MUSE Atrial Rate 75 BPM [facility] MUSE P-R Interval 132 ms SL MUSE QRS Duration ms 92 ms [facility] MUSE Q-T Interval ms 416 ms [facility] MUSE QTC Calculation (Bezet) 464 ms [facility] MUSE Calculated P [place] 45 degrees [facility] MUSE Calculated R [place] 37 degrees [facility] MUSE Calculated T [place] -90 degrees SL MUSE Interpretation EKG SINUS RHYTHM WITH PREMATURE VENTRICULAR COMPLEXES ST & T WAVE ABNORMALITY, CONSIDER INFERIOR ISCHEMIA ABNORMAL ECG NO PREVIOUS ECGS AVAILABLE Confirmed by PATI DAVIS, ORALIAMAILE ([id number]) on 06/18/2024 10:09:45 PM [facility] MUSE 05/29/2024 8:41 AM CDT 06/18/2024 10:09 PM CDT Ruslan Garza MD ECG ORDERABLES [facility] MUSE * CT Angio Brain Neck Stroke [...] report is dictated by Nasreen Gomez MD (residential support worker) I, Christy Iverson MD have personally reviewed and interpreted this examination/study. > Interpreting Provider: Christy Iverson MD on 05/29/2024 10:01 AM Narrative 05/29/2024 10:01 AM CDT PROCEDURE: CT ANGIO BRAIN NECK STROKE, DATE/TIME OF EXAM: 05/29/2024 1:30 AM, LOCATION [facility] INDICATION: I63.9: Cerebrovascular accident (CVA), unspecified [...] ANGIO BRAIN NECK STROKE, DATE/TIME OF EXAM: 41:30 AM, LOCATION [facility] INDICATION: I63.9: Cerebrovascular accident (CVA), unspecified [...] report is dictated by Nasreen Gomez MD (residential support worker) I, Christy Iverson MD have personally reviewed and interpreted this examination/study. > Interpreting Provider: Christy Iverson MD on 05/29/2024 10:01 AM Madhu Rose MD CT ORDERABLES * CREATININE - POCT INTERFACED (05/29/2024 12:42 AM CDT) Only the most recent of2 resultswithin the time period is included. Creatinine POCT 0.76 0.30 - 1.30 mg/dL 05/29/2024 12:43 AM CDT [facility] Comment:CT range acceptable eGFR >90 >=90 mL/min/1.7 3 m2 05/29/2024 12:43 AM CDT [facility] Blood BLOOD SPECIMEN / Unknown 05/29/2024 12:42 AM CDT 05/29/2024 12:43 AM CDT Jason Coppola MD LAB - POINT OF CARE ORDERABLES [address] [address], [facility] [phone] * INR WHOLE BLOOD - POINT OF CARE (IP) STROKE (05/29/2024 12:41 AM CDT) INR 1.1 0.9 - 1.2 05/29/2024 12:43 AM CDT [facility] Device [id number] 05/29/2024 12:43 AM CDT [facility] Kennel Keeper ID [id number] 05/29/2024 12:43 AM CDT [facility] Blood BLOOD SPECIMEN / Unknown 05/29/2024 12:41 AM CDT 05/29/2024 12:43 AM CDT Jason Coppola MD LAB - POINT OF CARE ORDERABLES [facility] [place] [address], [facility] [phone] * CT Brain Stroke (05/29/2024 12:34 AM CDT) Only the most recent of2 resultswithin the time period is included. Anatomical Region Laterality Modality Head Computed Tomogra phy 05/29/2024 9:39 AM CDT Impressions 05/29/2024 9:43 AM CDT IMPRESSION: 1. No acute intracranial process. A preliminary report was provided to the clinical team by Nehemias Lino M.D of [facility] at 12:36 AM on 05/29/2024. > Interpreting Provider: Christy Iverson MD on 05/29/2024 9:43 AM Narrative 05/29/2024 9:43 AM CDT PROCEDURE: CT BRAIN STROKE, DATE/TIME OF EXAM: 05/29/2024 12:40 AM, LOCATION [facility] INDICATION: I63.9: Cerebrovascular accident (CVA), unspecified [...] OF EXAM: 05/29/2024 12:40 AM, LOCATION [facility] INDICATION: I63.9: Cerebrovascular accident (CVA), unspecified [...] the clinical team by Nehemias Doll of [facility] at 12:36 AM on 05/29/2024. > [...] AM Narrative 05/27/2024 11:16 AM CDT PROCEDURE: CT ANGIO BRAIN AND NECK, DATE/TIME OF EXAM: 05/26/2024 5:27 PM, LOCATION [facility] INDICATION: I63.9: Cerebrovascular accident (CVA), unspecified [...] DATE/TIME OF EXAM: 05/26/2024 5:27PM, LOCATION [facility] INDICATION: I63.9: Cerebrovascular accident (CVA), unspecified [...] Shanell Morales MD have personally reviewed and interpretedthis examination/study. [...] Report dictated by Kem Diaz MD, PhD (residential support worker). I, Monika Her MD have personally reviewed and interpreted this examination/study. > Interpreting Provider: Monika Her MD on 05/27/2024 9:20 AM Narrative 05/27/2024 9:20 AM CDT PROCEDURE: MRI BRAIN WO CONTRAST, DATE/TIME OF EXAM: 05/26/2024 4:41 PM, LOCATION [facility] INDICATION: I63.9: Cerebrovascular accident (CVA), unspecified [...] DATE/TIME OF EXAM: 05/26/2024 4:41PM, LOCATION [facility] INDICATION: I63.9: Cerebrovascular accident (CVA), unspecified [...] Report dictated by Kem Diaz MD, PhD (residential support worker). I, Monika Her MD have personally reviewed and interpreted this examination/study. > Interpreting Provider: Monika Her MD on 05/27/2024 9:20 AM Jason Coppola MD MR ORDERABLES * (ABNORMAL) CBC W AUTO DIFFERENTIAL (05/26/2024 8:27 AM CDT) Only the most recent of36 resultswithin the time period is included. WBC 7.7 4.0 - 10.7 x10E9/L 05/26/2024 8:39 AM [facility] RBC Count 3.94(L) 4.30 - 5.80 x10E12/L 05/26/2024 8:39 AM [facility] Hemoglobin 10.6(L) 13.3 - 17.5 g/dL 05/26/2024 8:39 AM [facility] Hematocrit 33.0(L) 38.7 - 51.1 % 05/26/2024 8:39 AM [facility] MCV 83.8 80.0 - 98.0 fL 05/26/2024 8:39 AM [facility] MCH 26.9 26.7 - 33.6 pg 05/26/2024 8:39 AM [facility] MCHC 32.1 31.7 - 36.3 g/dL 05/26/2024 8:39 AM [facility] RDW-CV 14.6 11.3 - 14.8 % 05/26/2024 8:39 AM [facility] Platelet Count 220 150 - 420 x10E9/L 05/26/2024 8:39 AM [facility] MPV 9.8 7.8 - 11.4 fL 05/26/2024 8:39 AM [facility] Neutrophil % 60.9 41.0 - 74.0 % 05/26/2024 8:39 AM [facility] Lymphocyte % 29.5 17.0 - 47.0 % 05/26/2024 8:39 AM [facility] Monocyte % 8.0 3.0 - 11.0 % 05/26/2024 8:39 AM [facility] Eosinophil % 1.2 0.0 - 7.0 % 05/26/2024 8:39 AM [facility] Basophil % 0.3 0.0 - 1.6 % 05/26/2024 8:39 AM [facility] Immature Granulocytes % 0.1 0.0 - 1.0 % 05/26/2024 8:39 AM [facility] Neutrophil Absolute 4.68 1.60 - 7.50 x10E9/L 05/26/2024 8:39 AM [facility] Lymphocyte Absolute 2.26 1.00 - 4.40 x10E9/L 05/26/2024 8:39 AM CDT [facility] Monocyte Absolute 0.61 0.15 - 1.00 x10E9/L 05/26/2024 8:39 AM CDT [facility] Eosinophil Absolute 0.09 0.00 - 0.60 x10E9/L 05/26/2024 8:39 AM CDT [facility] Basophil Absolute 0.02 0.00 - 0.13 x10E9/L 05/26/2024 8:39 AM CDT [facility] Blood BLOOD SPECIMEN / Unknown Venipuncture / Unknown 05/26/2024 8:27 AM CDT 05/26/2024 8:32 AM CDT Jason Coppola MD LAB - HEMATOLOGY ORD ERABLES [facility] [address] [place] [address], [facility] [phone] * HEMOGLOBIN A1C - POINT OF CARE (AMB) (05/22/2024 2:19 PM CDT) Only the most recent of5 resultswithin the time period is included. Hemoglobin A1c POCT 7.1 % Expiration Date 01/23/2026 Lot # [id number] QC Verified Yes Yes Blood BLOOD SPECIMEN [...] PM Narrative 05/17/2024 1:23 PM CDT PROCEDURE: CT LUMBAR SPINE WO CONTRAST DATE/TIME [...] Narrative 05/17/2024 1:14 PM CDT EXAM: CT scan of the brain without contrast TECHNIQUE: Axial images through the brain without contrast. [employer] software was utilized to analyze for intracranial [...] AM Narrative 05/17/2024 10:51 AM CDT PROCEDURE: XR SHOULDER RIGHT 2VW OR MORE [...] AM Narrative 05/17/2024 10:50 AM CDT PROCEDURE: XR CHEST 1VW PORTABLE, DATE/TIME OF EXAM: 05/17/2024 10:47 AM, LOCATION [facility] INDICATION: W19.XXXA: Unspecified fall, initial [...] PORTABLE, DATE/TIME OF EXAM: 05/17/2024 10:47AM, LOCATION [facility] INDICATION: W19.XXXA: Unspecified fall, initial [...] - 105 mg/dL 05/17/2024 10:53 AM CDT [facility] Sodium 141 136 - 145 mmol/L 05/17/2024 10:53 AM CDT [facility] Potassium 4.8 3.5 - 5.1 mmol/L 05/17/2024 10:53 AM T [facility] Chloride 106 98 - 107 mmol/L 05/17/2024 10:53 AM CDT [facility] CO2 26 22 - 29 mmol/L 05/17/2024 10:53 AM T [facility] Calcium 9.7 8.4 - 10.4 mg/dL 05/17/2024 10:53 AM [facility] Anion Gap 9 6 - 16 mmol/L 05/17/2024 10:53 AM T [facility] BUN 18 7 - 26 mg/dL 05/17/2024 10:53 AM [facility] Creatinine 0.88 0.72 - 1.25 mg/dL 05/17/2024 10:53 AM [facility] Alkaline Phosphatase 59 40 - 150 U/L 05/17/2024 10:53 AM CDT [facility] ALT 22 0 - 55 U/L 05/17/2024 10:53 AM T [facility] AST 15 5 - 34 U/L 05/17/2024 10:53 AM [facility] Protein Total 8.0 6.4 - 8.3 gm/dL 05/17/2024 10:53 AM [facility] Albumin 3.1(L) 3.4 - 5.0 gm/dL 05/17/2024 10:53 AM [facility] Bilirubin Total 0.3 0.2 - 1.2 mg/dL 05/17/2024 10:53 AM [facility] eGFR by CKD-EPI >90 >=90 mL/min/1.7 3 m2 05/17/2024 10:53 AM [facility] Blood BLOOD SPECIMEN / Unknown Venipuncture / Unknown 05/17/2024 10:24 AM CDT 05/17/2024 10:28 AM CDT Sarah Betancur MD LAB - CHEMISTRY ORDE DUNG [facility] Organization Address City/State/ZIP Co de Phone Number [facility] [address] [place] [address] * CK BLOOD (05/17/2024 10:24 AM CDT) Only the most recent of3 resultswithin the time period is included. CK 125 30 - 200 U/L 05/17/2024 10:53 AM CDT [facility] Blood BLOOD SPECIMEN / Unknown Venipuncture / Unknown 05/17/2024 10:24 AM CDT 05/17/2024 10:28 AM CDT Sarah Betancur MD LAB - CHEMISTRY ORDE DUNG [facility] [address] [place] [address] * XR ABDOMEN KUB PORTABLE (04/28/2024 10:56 AM CDT) Anatomical Region Laterality Modality Abdomen Radiographic Love ging 04/28/2024 10:5 2 AM CDT Impressions 04/28/2024 11:10 AM CDT IMPRESSION: Left upper quadrant gastrostomy tube with contrast opacification of the gastric lumen. No evidence of extraluminal contrast. Report dictated by Ted Weber M.D. (residential support worker) 04/28/2024 10:57 AM IAv MD have personally reviewed and interpreted this examination/study. > Interpreting Provider: Av Ariza MD on 04/28/2024 11:10 AM Narrative 04/28/2024 11:10 AM CDT PROCEDURE: XR ABDOMEN KUB PORTABLE, DATE/TIME OF EXAM: 04/28/2024 10:56 AM, LOCATION [facility] INDICATION: R68.89: Complaint associated with [...] OF EXAM: 04/28/2024 10:56 AM, LOCATION [facility] INDICATION: R68.89: Complaint associated with [...] contrast. Report dictated by Ted Weber M.D. (residential support worker) 04/28/2024 10:57 AM IAv MD have personally [...] CDT Narrative 04/22/2024 8:33 AM CDT PROCEDURE: XR ABDOMEN KUB DATE/TIME OF EXAM: 04/21/2024 9:23 PM Indication: K94.23: Gastrostomy tube dysfunction (HCC) Additional History: COMPARISON: None. FINDINGS/IMPRESSION: The images demonstrate a gastrostomy tube projecting over the left side of the abdomen. Contrast injected through the gastrostomy tube enters the gastric fundus. No extraluminal contrast extravasation is observed. Report dictated by Marc Mei MD (residential support worker). Rafy Jules MD have personally reviewed and [...] observed. Report dictated by Marc Mei MD (residential support worker). Rafy Jules MD have personally reviewed and interpreted this examination/study. > Interpreting Provider: Rafy Arciniega MD on 04/22/2024 8:33 AM Frederic Palmer MD DIAGNOSTIC IMAGING O RDERABLES * SARS-COV-2 (COVID-19) RAPID (04/10/2024 1:24 PM CDT) COVID-19 PCR Not detected Not detected 04/10/20 2:48 PM CDT [facility] Other ENTIRE NASOPHARYNX / Unknown Collection / Unknown 04/10/2024 1:24 PM CDT 04/10/2024 2:16 PM CDT Narrative [facility] - 04/10/2024 2:48 PM CDT [...] Aishwarya Barrera MD LAB - [facility] [id number] [place] [id number] * EGD WITH PEG PLACEMENT (03/17/2024 1:08 PM CDT) Report Endoscopy POC _ Patient Name: Raza Vazquez Procedure Date: 03/17/2024 1:08 PM Date of : 1960 Admit Type: Inpatient Age: 63 Gender: Male Ethnicity: Not or Race: Black or Attending MD: Alex Lopez MD, [id number] _ Procedure: Upper GI endoscopy Indications: Place PEG because patient is unable to eat, Place PEG due to dysphagia, Place PEG because patient is unable to eat due to stroke (CVA) Providers: Alex Lopez MD (Doctor), Leilani Zhao, RN, Beckie Angel, RN Medicines: Monitored Anesthesia Care Complications: No immediate complications. Estimated blood loss: Minimal. _ Estimated Blood Loss: Estimated blood loss was minimal. Procedure: Pre-Anesthesia Assessment: - Prior to the [...] Prior Anticoagulants: The patient has taken no anticoagulant or antiplatelet agents. ASA Grade Assessment: III - A patient with severe systemic disease. After reviewing the risks and benefits, the patient was deemed in satisfactory condition to undergo the procedure. After obtaining informed consent, the endoscope was passed under direct vision. Throughout the procedure, the patient's blood pressure, pulse, and oxygen saturations were monitored continuously. The Endoscope was introduced through the mouth, and advanced to the second part of duodenum. Moderate sedation was administered for 15 minutes The upper GI endoscopy was accomplished without difficulty. The patient tolerated the procedure well. Impression: - Normal esophagus. - Normal stomach. - Normal examined duodenum. - An externally removable PEG placement was successfully completed. - No specimens collected. Moderate Sedation: Moderate (conscious) sedation was administered by the nurse and supervised by the endoscopist. The patient's oxygen saturation, heart rate, blood pressure and response to care were monitored. Findings: The esophagus was normal. The entire examined stomach was normal. The patient was placed in the supine position for PEG placement. The stomach was insufflated to appose gastric and abdominal tracy. A site was located in the body of the stomach with good transillumination and manual external pressure for placement. The abdominal wall was marked and prepped in a sterile manner. The area was anesthetized with 2 mL of 1% lidocaine. The trocar needle was introduced through the abdominal wall and into the stomach under direct endoscopic view. A snare was introduced through the endoscope and opened in the gastric lumen. The guide wire was passed through the trocar and into the open snare. The snare was closed around the guide wire. The endoscope and snare were removed, pulling the wire out through the mouth. A skin incision was made at the site of needle insertion. The externally removable 20 Fr EndoVive Safety gastrostomy tube was lubricated. The G-tube was tied to the guide wire and pulled through the mouth and into the stomach. The trocar needle was removed, and the gastrostomy tube was pulled out from the stomach through the skin. The external bumper was attached to the gastrostomy tube, and the tube was cut to remove the guide wire. The final position of the gastrostomy tube was confirmed by relook endoscopy, and skin marking noted to be 4.5 cm at the external bumper. The final tension and compression of the abdominal wall by the PEG tube and external bumper were checked and revealed that the bumper was moderately tight and mildly deforming the skin. The feeding tube was capped, and the tube site cleaned and dressed. The examined duodenum was normal. _ Recommendation: - Patient has a contact number available for emergencies. The signs and symptoms of potential delayed complications were discussed with the patient. Return to normal activities tomorrow. Written discharge instructions were provided to the patient. - Continue present medications. Can use for meds immedieatly - NPO. - Please follow the post-PEG recommendations including: Nutrition consult for formula and volume. Procedure Code(s): --- Professional --- 68153, Esophagogastroduoden oscopy, flexible, transoral; with directed placement of percutaneous gastrostomy tube --- Technical --- 31519, Esophagogastroduoden oscopy, flexible, transoral; with directed placement of percutaneous gastrostomy tube Diagnosis Code(s): --- Professional --- R63.39, Other feeding difficulties R13.10, Dysphagia, unspecified Z43.1, Encounter for attention to gastrostomy --- Technical --- R63.39, Other feeding difficulties R13.10, Dysphagia, unspecified Z43.1, Encounter for attention to gastrostomy CPT copyright 2020 [employer]. All rights reserved. The codes documented in this report are preliminary and upon dough mixing machine operator review may be revised to meet current compliance requirements. Alex Lopez MD 03/17/2024 1:41:29 PM This report has been signed electronically. Number of Addenda: 0 Note Initiated On: 03/17/2024 1:08 PM [facility] 03/17/2024 1:08 PM CDT Alex Lopez MD GI PROCEDURE ORDERAB LES [facility] * (ABNORMAL) BLOOD GASES ART + [...] % 4.9 % 03/11/2024 4:57 PM CDT [facility] O2 Content Arterial 14.1 Interpret within clinical context ml/dL 03/11/2024 4:57 PM CDT [facility] O2 Saturation Arterial 95 90 - 100 % 03/11/2024 4:57 PM CDT [facility] Methemoglobin <0.8 0.0 - 2.0 % 03/11/2024 4:57 PM CDT [facility] Carboxyhemoglobin 2.3(H) 0.0 - 2.0 % 2023 4:57 PM CDT [facility] Hemoglobin by COOX 10.8(L) 12.0 - 17.6 g/dL 03/11/2024 4:57 PM CDT [facility] Kevin's Test Positive 03/11/2024 4:57 PM CDT [facility] Sample Site Left RA 03/11/2024 4:57 PM CDT [facility] O2 Device Room Air 03/11/2024 4:57 PM CDT [facility] FI O2 21.0 % 03/11/2024 4:57 PM CDT [facility] P/F Ratio 329 03/11/2024 4:57 PM CDT [facility] Blood, arterial ARTERIAL BLOOD SPECIMEN / Unknown 03/11/2024 4:54 PM CDT 03/11/2024 4:54 PM CDT Thea Castaneda MD LAB - BLOOD GASES OR DERABLES [facility] [address] [facility] [address] [phone] * B-TYPE NATRIURETIC PEPTIDE (03/08/2024 1:01 PM CDT) Only the most recent of2 resultswithin the time period is included. BNP 18 <=100 pg/mL 03/08/2024 1:40 PM CDT [facility] Blood BLOOD SPECIMEN / Unknown Venipuncture / Unknown 03/08/2024 1:01 PM CDT 03/08/2024 1:17 PM CDT Thea Castaneda MD LAB - CHEMISTRY ORDAnirudh RAZO Performing Organization Address [facility]/ZIP Co de Phone Number [facility] [address] [place] [address] * (ABNORMAL) URINE MICROSCOPIC ONLY REFLEX TO CULTURE (02/26/2024 10:10 PM CDT) Reflex Status Culture to follow 02/26/2024 10:29 PM CDT [facility] RBC UA 51-100(A) 0 - 5 # /hpf 02/26/2024 10:29 PM CDT [facility] WBC UA >100(A) 0 - 5 # /hpf 02/26/2024 10:29 PM CDT [facility] Bacteria UA 3+(A) None Seen 02/26/2024 10:29 PM CDT [facility] Squamous Epithelial Cells 3-5 0 - 5 /hpf 02/26/2024 10:29 PM CDT [facility] Mucus UA 3+ /LPF 02/26/2024 10:29 PM CDT [facility] Urine URINE SPECIMEN OBTAINED BY CLEAN CATCH PROCEDURE / Unknown 02/26/2024 10:10 PM CDT 02/26/2024 10:18 PM CDT Narrative [facility] - 02/26/2024 10:29 PM CDT Provider Unknown LAB - URINALYSIS ORD ERAHATTIE Performing Organization Address [facility]/ZIP Co de Phone Number [facility] [address] [place] [address] * (ABNORMAL) URINALYSIS REFLEX MICROSCOPIC REFLEX CULTURE (02/26/2024 10:10 PM CDT) Color UA Beckie(A) Straw, Yellow 02/26/2024 10:23 PM CDT [facility] Clarity UA Cloudy(A) Clear 02/26/2024 10:23 PM CDT [facility] Glucose UA Negative Negative 02/26/2024 10:23 PM CDT [facility] Bilirubin UA Negative Negative 02/26/2024 10:23 PM CDT [facility] Ketone UA Negative Negative 02/26/2024 10:23 PM CDT [facility] Specific [place] UA 1.019 1.005 - 1.030 02/26/2024 10:23 PM CDT [facility] Blood UA 1+(A) Negative 02/26/2024 10:23 PM CDT [facility] pH UA 6.0 5.0 - 8.0 pH 02/26/2024 10:23 PM CDT [facility] Protein UA 1+(A) Negative 02/26/2024 10:23 PM CDT [facility] Urobilinogen UA 2.0(A) Negative mg/dL 02/26/2024 10:23 PM CDT [facility] Nitrite UA Positive(A) Negative 02/26/2024 10:23 PM CDT [facility] Leukocyte UA 3+(A) Negative 02/26/2024 10:23 PM CDT [facility] Urine Microscopy Urine microscopy to follow 02/26/2024 10:23 PM CDT [facility] Reflex Status Culture to follow 02/26/2024 10:23 PM CDT [facility] Urine URINE SPECIMEN OBTAINED BY CLEAN CATCH PROCEDURE / Unknown 02/26/2024 10:10 PM CDT 02/26/2024 10:18 PM CDT Narrative [facility] - 02/26/2024 10:23 PM CDT Ascorbic Acid can cause false negative urine strip tests for blood, glucose, nitrite, and bilirubin. Provider Unknown LAB - URINALYSIS ORD ERABLES [facility] [address] [place] [address] * (ABNORMAL) CULTURE URINE (02/26/2024 10:10 PM CDT) Only the most recent of3 resultswithin the time period is included. Culture Urine >100,000 CFU/mL Escherichia coli(A) VALERIA 02/28/2024 11:34 AM [facility] Urine URINE SPECIMEN OBTAINED BY CLEAN CATCH PROCEDURE / Unknown 02/26/2024 10:10 PM CDT 02/26/2024 10:18 PM CDT Narrative [facility] - 02/28/2024 11:34 AM CDT Organism [...] Provider Unknown LAB - MICROBIOLOGY O RDERABLES [facility] [address] [place], [place] [address], [facility] [phone] * CARDIAC RHYTHM STRIP ORDER (02/18/2024 7:29 PM CDT) Only the most recent of2 resultswithin the time period is included. Narrative 02/18/2024 7:29 PM CDT Ordered by an unspecified provider. Scanned Document CARDIAC SERVICES ORD ERABLES * PREALBUMIN (02/16/2024 4:50 AM CDT) [facility] Prealbumin 21.0 16.0 - 42.0 mg/dL 02/16/2024 5:46 AM CDT [facility] Blood BLOOD SPECIMEN / Unknown 02/16/2024 4:50 AM CDT 02/16/2024 5:21 AM CDT Thea Castaneda MD LAB - CHEMISTRY CHRISTIAN RAZO Performing Organization Address City/[facility]/ZIP Co de Phone Number [facility] [address] [place] [address] * TSH (02/16/2024 4:50 AM CDT) [facility] TSH 1.6844 0.35 - 4.94 uIU/mL 02/16/2024 6:09 AM CDT [facility] Blood BLOOD SPECIMEN / Unknown Venipuncture / Unknown 02/16/2024 4:50 AM CDT 02/16/2024 5:21 AM CDT Thea Castaneda MD LAB - CHEMISTRY CHRISTIAN RAZO Performing Organization Address [facility] Co de Phone Number [facility] [address] [place] [address] * (ABNORMAL) RENAL FUNCTION PANEL (02/14/2024 4:10 PM CDT) Only the most recent of4 resultswithin the time period is included. [facility] Glucose 253(H) 70 - 105 mg/dL 02/14/2024 4:32 PM CDT [facility] Sodium 135(L) 136 - 145 mmol/L 02/14/2024 4:32 PM CDT [facility] Potassium 4.2 3.5 - 5.1 mmol/L 02/14/2024 4:32 PM CDT [facility] Chloride 104 98 - 107 mmol/L 02/14/2024 4:32 PM CDT [facility] CO2 22 22 - 29 mmol/L 02/14/2024 4:32 PM CDT [facility] Calcium 10.0 8.4 - 10.4 mg/dL 02/14/2024 4:32 PM CDT [facility] Anion Gap 9 6 - 16 mmol/L 02/14/2024 4:32 PM CDT [facility] BUN 38(H) 7 - 26 mg/dL 02/14/2024 4:32 PM CDT [facility] Creatinine 0.95 0.72 - 1.25 mg/dL 02/14/2024 4:32 PM CDT [facility] Albumin 2.6(L) 3.4 - 5.0 gm/dL 02/14/2024 4:32 PM CDT [facility] Phosphorus 5.2(H) 2.3 - 4.7 mg/dL 02/14/2024 4:32 PM CDT [facility] eGFR by CKD-EPI 89(L) >=90 mL/min/1.7 3 m2 02/14/2024 4:32 PM CDT [facility] Blood BLOOD SPECIMEN / Unknown Venipuncture / Unknown 02/14/2024 4:10 PM CDT 02/14/2024 4:15 PM CDT Andrea Zamorano MD LAB - CHEMISTRY ORDE DUNG Performing Organization Address City/[facility] Co de Phone Number [facility] [address] [place] [address] * SLIDE SCAN HEMATOLOGY (02/13/2024 4:29 AM CDT) Only the most recent of5 resultswithin the time period is included. RBC Morphology NORMAL 02/13/2024 5:32 AM CDT [facility] Platelet Morphology NORMAL 02/13/2024 5:32 AM CDT [facility] Blood BLOOD SPECIMEN / Unknown Venipuncture / Unknown 02/13/2024 4:29 AM CDT 02/13/2024 4:44 AM CDT Chuy Siegel DO LAB - HEMATOLOGY ORD ERABLES Performing Organization Address City/[facility]/ZIP Co de Phone Number [facility] [address] [place] [address] * AMMONIA (02/08/2024 11:53 AM CDT) Pathologist [facility] Ammonia 33 18 - 72 umol/L 02/08/2024 12:16 PM CDT [facility] Blood BLOOD SPECIMEN / Unknown Venipuncture / Unknown 02/08/2024 11:53 AM CDT 02/08/2024 12:02 PM CDT Chuy Salma Robbin LAB - CHEMISTRY FORDLANDAnirudh RAZO Performing Organization Address [facility] Co de Phone Number [facility] [id number] [place] [address] * (ABNORMAL) HEPATIC FUNCTION PANEL (02/08/2024 5:26 AM CDT) [facility] Alkaline Phosphatase 193(H) 40 - 150 U/L 02/08/2024 9:54 AM CDT [facility] ALT 73(H) 0 - 55 U/L 02/08/2024 9:54 AM CDT [facility] AST 62(H) 5 - 34 U/L 02/08/2024 9:54 AM CDT [facility] Protein Total 8.0 6.4 - 8.3 gm/dL 02/08/2024 9:54 AM CDT [facility] Albumin 2.1(L) 3.4 - 5.0 gm/dL 02/08/2024 9:54 AM CDT [facility] Bilirubin Total 0.3 0.2 - 1.2 mg/dL 02/08/2024 9:54 AM CDT [facility] Bilirubin Direct 0.163 0.10 - 0.50 mg/dL 02/08/2024 9:54 AM CDT [facility] Blood BLOOD SPECIMEN / Unknown Line Draw / Unknown 02/08/2024 5:26 AM CDT 02/08/2024 5:37 AM CDT Chuy Salma Robbin [facility]QU[facility] LAB - CHEMISTRY CHRISTIAN RAZO Performing Organization Address [facility] Co de Phone Number [facility] [address] [place] [address] * (ABNORMAL) URINALYSIS REFLEX TO MICROSCOPIC NO CULTURE (02/06/2024 11:40 AM CDT) Color UA Beckie(A) Straw, Yellow 02/06/2024 1:03 PM CDT [facility] Clarity UA Cloudy(A) Clear 02/06/2024 1:03 PM CDT [facility] Glucose UA Negative Negative 02/06/2024 1:03 PM CDT [facility] Bilirubin UA Negative Negative 02/06/2024 1:03 PM CDT [facility] Ketone UA Negative Negative 02/06/2024 1:03 PM CDT [facility] Specific [place] UA 1.025 1.005 - 1.030 02/06/2024 1:03 PM CDT [facility] Blood UA 3+(A) Negative 02/06/2024 1:03 PM CDT [facility] pH UA 5.0 5.0 - 8.0 pH 02/06/2024 1:03 PM CDT [facility] Protein UA 2+(A) Negative 02/06/2024 1:03 PM CDT [facility] Urobilinogen UA 2.0(A) Negative mg/dL 02/06/2024 1:03 PM CDT [facility] Nitrite UA Negative Negative 02/06/2024 1:03 PM CDT [facility] Leukocyte UA Trace(A) Negative 02/06/2024 1:03 PM CDT [facility] Urine Microscopy Urine microscopy to follow 02/06/2024 1:03 PM CDT [facility] Urine URINE SPECIMEN OBTAINED VIA INDWELLING URINARY CATHETER / Unknown Collection / Unknown 02/06/2024 11:40 AM CDT 02/06/2024 12:56 PM CDT Narrative [facility] - 02/06/2024 1:03 PM CDT Kel Jacome MD LAB - URINALYSIS ORD ERABLES [facility] [address] [place] [address] * (ABNORMAL) URINE MICROSCOPIC ONLY (02/06/2024 11:40 AM CDT) RBC UA >100(A) 0 - 5 # /hpf 02/06/2024 1:30 PM CDT [facility] WBC UA 11-20(A) 0 - 5 # /hpf 02/06/2024 1:30 PM CDT [facility] Hyaline Casts None Seen 0 - 2 /LPF 02/06/2024 1:30 PM CDT [facility] Bacteria UA 2+(A) None Seen 02/06/2024 1:30 PM CDT [facility] Squamous Epithelial Cells 6-10(A) 0 - 5 /hpf 02/06/2024 1:30 PM CDT [facility] Urine URINE SPECIMEN OBTAINED VIA INDWELLING URINARY CATHETER / Unknown Collection / Unknown 02/06/2024 11:40 AM CDT 02/06/2024 12:56 PM CDT Kel Jacome MD LAB - URINALYSIS ORD ERABLES Performing Organization Address City/[facility]/ZIP Co de Phone Number [facility] [address] [place] [address] * MRSA DNA PCR (02/06/2024 11:33 AM CDT) Only the most recent of2 resultswithin the time period is included. MRSA DNA by PCR Not detected Not detected 02/07/2024 12:39 AM CDT [facility] MICROBIOLOGY Microbiology SPECIMEN FROM NASAL FOSSAE / Unknown Collection / Unknown 02/06/2024 11:33 AM CDT 02/06/2024 12:56 PM CDT Narrative [facility]CRO[facility] - 02/07/2024 12:39 AM CDT Methicillin-resistant Staphylococcus aureus (MRSA) DNA is not detected (presumed not colonized with MRSA). Kel Jacome MD LAB - MICROBIOLOGY O RDERABLES Performing Organization Address City/[facility]/ZIP Co de Phone Number [facility]CROBIOLOGY [address] [place] [address], [facility] [phone] * (ABNORMAL) CULTURE SPUTUM+GRAM STAIN (02/06/2024 11:33 AM CDT) Only the most recent of2 resultswithin the time period is included. Culture Moderate Staphylococcus aureus(A) VALERIA 02/08/2024 10:43 PM CDT [facility]CRO[facility] Comment:Staphylococcus aureu s methicillin-susceptible (MSSA) detected by penicillin binding protein immunoassay. Culture Rare normal oropharyngeal tae VALERIA 02/08/2024 10:43 PM CDT [facility]CROBIOLOG[facility] Gram Stain <10 per low power field Squamous epithelial cells 02/08/2024 10:43 PM CDT [facility]CRO[facility] Gram Stain >= 25 per low power field Polymorphonuclear cells 02/08/2024 10:43 PM CDT [facility]CROBI[facility] Gram Stain Moderate Gram-positive cocci 02/08/2024 10:43 PM CDT [facility] MICROBIOLOGY Microbiology LOWER RESPIRATORY FLUID SPECIMEN / [...] Jacome MD LAB - MICROBIOLOGY O RDERABLES [facility] MICROBIOLOGY [address] [facility] [place] [address], [facility] [phone] * CULTURE BLOOD (02/06/2024 11:31 AM CDT) Only the most recent of6 resultswithin the time period is included. Culture No growth day 5 VALERIA 02/11/2024 1:01 PM CDT [facility]CROBIOLOG[facility] Blood PERIPHERAL BLOOD / Unknown Venipuncture / Unknown 02/06/2024 11:31 AM CDT 02/06/2024 11:39 AM CDT Kel Jacome MD LAB - MICROBIOLOGY O RDERABLES [facility]CRO[facility] [address] [place], [place] [address] [phone] * (ABNORMAL) TRIGLYCERIDES BLOOD (02/04/2024 3:28 AM CDT) Triglycerides 190(H) <150 mg/dL 02/04/2024 4:07 AM CDT [facility] Blood BLOOD SPECIMEN / Unknown Line Draw / Unknown 02/04/2024 3:28 AM CDT 02/04/2024 3:48 AM CDT Kel Jacome MD LAB - CHEMISTRY ORDAnirudh RAZO Performing Organization Address City/[facility]/ZIP Co de Phone Number [facility] [address] [place] [address] * (ABNORMAL) DIFFERENTIAL MANUAL (02/03/2024 10:01 AM CDT) Only the most recent of2 resultswithin the time period is included. Neutrophil % 56 41 - 74 % 02/03/2024 10:56 AM CDT [facility] Lymphocyte % 28 17 - 47 % 02/03/2024 10:56 AM CDT [facility] Monocyte % 13(H) 3 - 11 % 02/03/2024 10:56 AM CDT [facility] Eosinophil % 3 0 - 7 % 02/03/2024 10:56 AM CDT [facility] Neutrophil Absolute 8.51(H) 1.60 - 7.50 x10E9/L 02/03/2024 10:56 AM CDT [facility] Lymphocyte Absolute 4.26 1.00 - 4.40 x10E9/L 02/03/2024 10:56 AM CDT [facility] Monocyte Absolute 1.98(H) 0.15 - 1.00 x10E9/L 02/03/2024 10:56 AM CDT [facility] Eosinophil Absolute 0.46 0.00 - 0.60 x10E9/L 02/03/2024 10:56 AM CDT [facility] RBC Morphology RED CELL INDICIES CONFIRMED 02/03/2024 10:56 AM CDT [facility] Blood BLOOD SPECIMEN / Unknown Venipuncture / Unknown 02/03/2024 10:01 AM CDT 02/03/2024 10:19 AM CDT Chuy Siegel DO LAB - HEMATOLOGY ORD ERABLES [facility] [address] [place] [address] * XR CHEST POST ETT [...] BLOOD GASES OR DERABLES [facility] RESP THERAPY [address] [phone] * EGD WITH PEG PLACEMENT (01/30/2024 6:35 AM CDT) Report Endoscopy POC _ Patient Name: Raza Vazquez Procedure Date: 01/30/2024 6:35 AM Date of : 1960 Admit Type: Inpatient Age: 63 Gender: Male Attending MD: Jeff Ruffin MD, _ Procedure: Upper GI endoscopy Indications: Place PEG because patient is unable to eat Providers: Jeff Ruffin MD (Doctor) Referring MD: Sylvain Daniels MD (Referring MD) Medicines: Monitored Anesthesia Care Complications: No immediate complications. _ Estimated Blood Loss: Estimated blood loss: none. Procedure: After obtaining informed consent, the endoscope was passed under direct vision. Throughout the procedure, the patient's blood pressure, pulse, and oxygen saturations were monitored continuously. The Endoscope was introduced through the mouth, and advanced to the second part of duodenum. The upper GI endoscopy was accomplished without difficulty. The patient tolerated the procedure well. Findings: The esophagus was normal. The entire examined stomach was normal. Placement of an externally removable PEG with no T-fasteners was successfully completed. The external bumper was at the 4.0 cm marking on the tube. Estimated blood loss was minimal. The examined duodenum was normal. _ Impression: - Normal esophagus. - Normal stomach. - Normal examined duodenum. - An externally removable PEG placement was successfully completed. - No specimens collected. Recommendation: - Can use PEG for medication right away. Can start tube feeds in 2 hours. Aspiration precautions. Keep head of bed elevated 30 degrees. Check residuals every 6-8 hours and hold tube feed if residuals more then 100 ml. Watch G tube site for bleeding of drainage. Binder over PEG if patient is likely to pull at the g tube Procedure Code(s): --- Professional --- 87930, Esophagogastrodu odenoscopy, flexible, transoral; with directed placement of percutaneous gastrostomy tube --- Technical --- 72966, Esophagogastrodu odenoscopy, flexible, transoral; with directed placement of percutaneous gastrostomy tube Diagnosis Code(s): --- Professional --- Z43.1, Encounter for attention to gastrostomy R63.39, Other feeding difficulties --- Technical --- Z43.1, Encounter for attention to gastrostomy R63.39, Other feeding difficulties CPT copyright 2020 [employer]. All rights reserved. The codes documented in this report are preliminary and upon dough mixing machine operator review may be revised to meet current compliance requirements. Dr. Jeff Ruffin MD Jeff Ruffin MD 01/30/2024 3:19:32 PM This report has been signed electronically. Number of Addenda: 0 Note Initiated On: 01/30/2024 6:35 AM [facility] 01/30/2024 6:35 AM CDT Jeff Ruffin MD GI PROCEDURE ORDERAB LES [facility] [place] [address] * (ABNORMAL) BLOOD GASES+LYTES ARTERIAL (01/27/2024 12:33 PM CDT) pH Arterial 7.42 7.35 - 7.45 pH 01/27/2024 12:36 PM CDT [facility] RESP THERAPY pO2 Arterial 64(L) 80 - [...] BLOOD GASES OR DERABLES [facility] [address] [phone] * (ABNORMAL) LIPID PROFILE (01/24/2024 4:43 AM CDT) Only the most recent of5 resultswithin the time period is included. Cholesterol 229(H) <200 mg/dL 01/24/2024 5:21 AM CDT [facility] Triglycerides 179(H) <150 mg/dL 01/24/2024 5:21 AM CDT [facility] HDL Cholesterol 32(L) >40 mg/dL 5:21 AM CDT [facility] LDL Calculated 161(H) <130 mg/dL 01/24/2024 5:21 AM CDT [facility] VLDL Calculated 36(H) <=30 mg/dL 5:21 AM CDT [facility] Chol HDL Ratio 7.2(H) <4.5 01/24/2024 5:21 AM CDT [facility] LDL/HDL Ratio 5.0(H) <5.0 01/24/2024 5:21 AM CDT [facility] Blood BLOOD SPECIMEN / Unknown Venipuncture / Unknown 01/24/2024 4:43 AM CDT 01/24/2024 4:54 AM CDT Gladys Mcgee MD LAB - CHEMISTRY CHRISTIAN RAZO Performing Organization Address City/[facility] Co de Phone Number [facility] [id number] [place] [address] * TROPONIN-I HIGH SENSITIVE BASELINE + 1HR (01/23/2024 8:04 PM CDT) Only the most recent of2 resultswithin the time period is included. Troponin I High Sensitive 19 <=35 ng/L 01/23/2024 8:48 PM CDT [facility] Blood BLOOD SPECIMEN / Unknown Venipuncture / Unknown 01/23/2024 8:04 PM CDT 01/23/2024 8:23 PM CDT Gladys Mcgee MD LAB - CHEMISTRY CHRISTIAN RAZO Performing Organization Address City/[facility]/ZIP Co de Phone Number [facility] [address] [place] [address] * IR CAROTID CEREBRAL ANGIOGRAM (01/23/2024 4:55 PM CDT) Anatomical Region Laterality Modality Head Other Narrative 01/23/2024 4:37 PM CDT Sherie Beltre MD 01/23/2024 6:44 PM NEUROINTERVENTIONAL [...] cerebral right vertebral artery 2. Angioplasty with [place] 2.5 mm X 15 mm balloon 4. [...] cross the lesion. A 2.5 x15 mm [place] angioplasty balloon was advanced over the exchange [...] was removed. A run performed from the 3RD MATE demostrated a normal femoral artery bifurcation. The [...] and VAISHNAVI with large PCOM filling the STRAP CUTTER. The left vertebral artery angiogram shows a [...] SENSITIVE REFLEX 1HOUR (01/23/2024 11:52 AM CDT) Troponin I High Sensitive 26 <=35 ng/L 01/23/2024 12:26 PM CDT [facility] Delta Troponin I HS 2 <6 ng/L 01/23/2024 12:26 PM CDT [facility] Blood BLOOD SPECIMEN / Unknown Venipuncture / Unknown 01/23/2024 11:52 AM CDT 01/23/2024 11:59 AM CDT Gladys Mcgee MD LAB - CHEMISTRY CHRISTIAN RAZO [facility] Organization Address City/State/ZIP Co de Phone Number [facility] [address] [place] [address] * URINE DRUG SCREEN IMMUNOASSAY (01/23/2024 11:46 AM CDT) [facility] Amphetamines Screen Urine Not detected Not detected 01/23/2024 12:12 PM CDT [facility] Barbiturates Screen Urine Not detected Not detected 01/23/2024 12:12 PM CDT [facility] Benzodiazepines Screen Urine Not detected Not detected 01/23/2024 12:12 PM CDT [facility] Cannabinoids Screen Urine Not detected Not detected 01/23/2024 12:12 PM CDT [facility] Cocaine Screen Urine Not detected Not detected 01/23/2024 12:12 PM CDT [facility] Fentanyl Urine Not detected Not detected 01/23/2024 12:12 PM CDT [facility] Methadone Screen Urine Not detected Not detected 01/23/2024 12:12 PM CDT [facility] Opiate Screen Urine Not detected Not detected 01/23/2024 12:12 PM CDT [facility] Phencyclidine Screen Urine Not detected Not detected 01/23/2024 12:12 PM CDT [facility] Urine URINE / Unknown Collection / Unknown 01/23/2024 11:46 AM CDT 01/23/2024 11:48 AM CDT Narrative [facility] - 01/23/2024 12:12 PM CDT This drug screen is designed for MEDICAL purposes only. It is not to be used for legal purposes, including but not limited to worker's comp, police investigations, occupational issues, child custody, etc. Any positive result is only presumptive and must be confirmed with a separate confirmatory test ordered by the physician. Drug Screening Test Cutoff Values: AMPHETAMINES 1000 ng/mL BARBITURATES 200 ng/mL BENZODIAZEPINES 200 ng/mL CANNABINOIDS(THC) 50 ng/mL COCAINE 300 ng/mL FENTANYL 1 ng/mL METHADONE 300 ng/mL OPIATES 300 ng/mL PHENCYCLIDINE(PCP) 25 ng/mL Gladys Mcgee MD LAB - URINE CHEMISTR Y ORDERABLES [facility] [address] [place] [address] * Intubation (01/23/2024 11:39 AM CDT) Narrative Gladys Mcgee MD - 01/23/2024 11:39 AM CDT Gladys Mcgee MD 01/24/2024 8:45 PM Intubation Date/Time: 01/23/2024 11:39 AM Performed by: Gladys Mcgee MD Authorized by: Gladys Mcgee MD Consent: Consent obtained: Emergent situation [place] protocol: Relevant documents present and verified: yes [...] Procedure completion: Tolerated well, no immediate complications Gladys Mcgee MD PROCEDURE/MINOR SURG ICAL ORDERABLES * INR - POCT (01/23/2024 10:45 AM CDT) INR 1.1 0.9 - 1.2 01/23/2024 10:56 AM CDT [facility] Blood BLOOD SPECIMEN / Unknown 01/23/2024 10:45 AM CDT 01/23/2024 10:56 AM CDT Gladys Mcgee MD LAB - POINT OF CARE ORDERABLES [facility] [address] [place] [address] * (ABNORMAL) HEMOGLOBIN A1C (01/23/2024 10:39 AM CDT) Only the most recent of4 resultswithin the time period is included. Hemoglobin A1c 6.1(H) <5.7 % 01/23/2024 7:28 PM CDT [facility] Estimated Average Glucose 128 mg/dL 01/23/2024 7:28 PM CDT [facility] Blood BLOOD SPECIMEN / Unknown Venipuncture / Unknown 01/23/2024 10:39 AM CDT 01/23/2024 10:42 AM CDT Narrative [facility] - 01/23/2024 7:28 PM CDT HbA1c [...] Type 1 diabetes, pediatric patients, or women. Falsely low HbA1c results may be [...] falsely high results. Hemoglobin A1c assay should not be used to diagnose or monitor diabetes in patients with malignancy, recent blood transfusion, chronic kidney or liver disease. This method may yield falsely low results when hemoglobin (HbF) exceeds 5% in the specimen. The Walker Alinity assay for the measurement of HbA1c is a National Glycohemoglobin Standardization Program (NGSP) certified method. Gladys Mcgee MD LAB - CHEMISTRY ORDE [facility] [address] [place] [address] * TYPE + SCREEN PANEL (01/23/2024 10:39 AM CDT) Only the most recent of3 resultswithin the time period is included. ABO Rh O NEG 01/23/2024 11:33 AM CDT [facility] Comment:History checked. Antibody Screen NEG 11:33 AM CDT [facility] Blood Bank BLOOD SPECIMEN / Unknown Venipuncture / Unknown 01/23/2024 10:39 AM CDT 01/23/2024 10:42 AM CDT Gladys Mcgee MD LAB - BLOOD BANK ORD ERABLES Performing Organization Address [facility] Co de Phone Number [facility] [address] [place] [address] [phone] * PTT (01/23/2024 10:39 AM CDT) PTT 28.3 23.0 - 38.4 sec 01/23/2024 10:55 AM CDT [facility] Blood BLOOD SPECIMEN / Unknown Venipuncture / Unknown 01/23/2024 10:39 AM CDT 01/23/2024 10:42 AM CDT Narrative [facility] - 01/23/2024 10:55 AM CDT Heparin Therapeutic Range for PTT: 69.0 - 110.0 seconds. Gladys Mcgee MD LAB - COAGULATION OR DERABLES Performing Organization Address City/[facility]/ZIP Co de Phone Number [facility] [address] [place] [address] * PT-INR (01/23/2024 10:39 AM CDT) Only the most recent of2 resultswithin the time period is included. PT 13.3 12.1 - 14.8 sec 01/23/2024 10:55 AM CDT [facility] INR 1.0 0.9 - 1.1 01/23/2024 10:55 AM CDT [facility] Blood BLOOD SPECIMEN / Unknown Venipuncture / Unknown 01/23/2024 10:39 AM CDT 01/23/2024 10:42 AM CDT Narrative [facility] - 01/23/2024 10:55 AM CDT Conventional Warfarin Anticoagulant Therapy: INR Reference Range: 2.0-3.0 Intensive Warfarin Anticoagulant Therapy: INR Reference Range: 2.5-3.5 Gladys Mcgee MD LAB - COAGULATION OR DERABLES Performing Organization Address [facility] de Phone Number [facility] [address] [place] [address] * ALCOHOL ETHYL BLOOD (01/23/2024 10:39 AM CDT) Ethanol <10.0 <10 mg/dL 01/23/2024 11:09 AM CDT [facility] Ethanol Calculated <0.010 <=0.100 gm/dL 01/23/2024 11:09 AM CDT [facility] Blood BLOOD SPECIMEN / Unknown Venipuncture / Unknown 01/23/2024 10:39 AM CDT 01/23/2024 10:42 AM CDT Narrative [facility] - 01/23/2024 11:09 AM CDT Ethanol [...] purposes. Gladys Mcgee MD LAB - CHEMISTRY ORDE RABLES Performing Organization Address [facility] de Phone Number [facility] [address] [place], [place] [id number] * TROPONIN I (07/27/2022 2:44 AM CDT) Only the most recent of7 resultswithin the time period is included. Troponin I <0.010 <0.038 ng/mL 07/27/2022 3:16 AM CDT [facility] Blood BLOOD SPECIMEN / Unknown Venipuncture / Unknown 07/27/2022 2:44 AM CDT 07/27/2022 2:51 AM CDT Chandler Houston LAB - CHEMISTRY ORDE DUNG Performing Organization Address [facility] Co de Phone Number [facility] [address] [place] [address] * SARS-COV-2 (COVID-19)+INFLU A+B PCR RAPID (07/26/2022 5:12 PM CDT) Pathologist [facility] COVID-19 PCR Not detected Not detected 07/26/20 5:54 PM CDT [facility] Influenza A PCR Not detected Not detected 07/26/2022 5:54 PM CDT [facility] Influenza B PCR Not detected Not detected 07/26/2022 5:54 PM CDT [facility] Microbiology SPECIMEN FROM NASOPHARYNGEAL STRUCTURE / Unknown Collection / Unknown 07/26/2022 5:12 PM CDT 07/26/2022 5:14 PM CDT Narrative [facility] - 07/26/2022 5:54 PM CDT This nucleic acid amplification assay has been authorized by the Food and Drug administration (FDA) under an Emergency Use Authorization (EUA). This test is only authorized for the [...] - MICROBIOLOGY O RDERABLES Performing Organization Address [facility]/ZIP Co de Phone Number [facility] [address] [place], [place] [id number] * LACTIC ACID BLOOD REFLEX TO REPEAT (07/26/2022 4:53 PM CDT) Pathologist [facility] Lactic Acid 0.77 <=2 mmol/L 07/26/2022 5:21 PM CDT [facility] Blood BLOOD SPECIMEN / Unknown Venipuncture / Unknown 07/26/2022 4:53 PM CDT 07/26/2022 5:06 PM CDT Chandler Houston DO LAB - CHEMISTRY ORDE RABLES Performing Organization Address [facility] de Phone Number [facility] [id number] [place] [address] * D-DIMER (07/26/2022 4:53 PM CDT) [facility] D-Dimer 0.30 0.27 - 0.50 ug/mL FEU 07/26/2022 5:21 PM CDT [facility] Blood BLOOD SPECIMEN / Unknown Venipuncture / Unknown 07/26/2022 4:53 PM CDT 07/26/2022 5:07 PM CDT Narrative [facility] - 07/26/2022 5:21 PM CDT In the absence of clinical symptoms, a value less than or equal to 0.5 mcg/mL FEU significantly decreases the probability of PE/DVT (negative predictive value >95%). 1 mcg/ml FEU = 1 Fibrinogen Equivalent Unit (approximates 0.5 mcg/mL of D- dimer). Chandler Houston DO LAB - COAGULATION OR DERABLES Performing Organization Address [facility] de Phone Number [facility] [address] [place] [address] * CARDIAC EKG ORDER (03/28/2021) Only the [...] of7 resultswithin the time period is included. Hemoglobin A1c POCT 6.1 % BLOOD SPECIMEN [...] * ENDOSCOPY, COLON, SCREENING (11/12/2020 12:12 PM BILLING MANAGER) Report Endoscopy POC Endoscopy Department Report _ Patient Name: Raza Vazquez Procedure Date: 11/12/2020 12:12 PM Date [...] colon K64.8, Other hemorrhoids CPT copyright 2019 [employer]. All rights reserved. The codes documented in this report are preliminary and upon dough mixing machine operator review may be revised to meet current compliance requirements. Jodi Vernon MD 11/12/2020 12:57:40 PM Note Initiated On: 11/12/2020 12:12 PM Number of Addenda: 0 [facility] [address] [place] [address] [facility] 11/12/2020 12:1 2 PM BILLING MANAGER Jodi Vernon MD GI PROCEDURE ORDER [facility] * HEPATITIS C AB W/RFLX TO HCV RNA QN PCR (07/23/2020 6:49 AM CDT) Hepatitis C Antibody NON-REACTI VE NON-REACT [facility] Signal to Cut-Off 0.09 <1.00 [facility] Comment: HCV antibody was non-reactive. There is no laboratory evidence of HCV infection. In most cases, no further action is required. However, if recent HCV exposure is suspected, a test for HCV RNA (test code 94456) is suggested. For additional information please refer to http://education.[employer]/faq/UUC90b0 (This link is being provided for informational/ educational purposes only.) Test Performed at: [employer] [place] [address] EH PURVIS DO,MPH 07/23/2020 6:49 AM CDT 07/23/2020 6:51 AM CDT Lisy Olmedo MD LAB - FREIGHT ELEVATOR ERECTOR RY ORDERABLES Performing Organization Address [facility] de Phone Number [employer] [address] [place] [address] * RPR W REFLEX TO TITER+CONFIRM (07/23/2020 6:49 AM CDT) [facility] RPR NON-REACTI VE NON-REACT ELIDA [facility] Comment: REPORT COMMENT: FASTING:YES Test Performed at: [employer] [place] [address] EH PURVIS DO,MPH 07/23/2020 6:49 AM CDT 07/23/2020 6:51 AM CDT Lisy Olmedo MD LAB - FREIGHT ELEVATOR ERECTOR RY ORDERABLES Performing Organization Address [facility] de Phone Number [employer] [address] [place] [address] * HIV-1 HIV-2 ANTIBODY + HIV P24 AG PANEL (07/23/2020 6:49 AM CDT) [facility] HIV Screen 4th Generation w Reflex NON-REACT ELIDA NON-REACT ELIDA [facility] Comment: HIV-1 antigen and HIV-1/HIV-2 antibodies were not detected. There is no laboratory evidence of HIV infection. PLEASE NOTE: This information has been disclosed to you from records whose confidentiality may be protected by state law. If your state requires such protection, then the state law prohibits you from making any further disclosure of the information without the specific written consent of the person to whom it pertains, or as otherwise permitted by law. A general authorization for the release of medical or other information is NOT sufficient for this purpose. For additional information please refer to http://education.[employer]/faq/JOS505 (This link is being provided for informational/ educational purposes only.) The performance of this assay has not been clinically validated in patients less than 2 years old. Test Performed at: [employer] [facility] [address] EH PURVIS DO,MPH 07/23/2020 6:49 AM CDT 07/23/2020 6:51 AM CDT Lisy Olmedo MD LAB - FREIGHT ELEVATOR ERECTOR RY ORDERABLES Performing Organization Address City/[facility] Phone Number [facility] [address] [place] [address] * MICROALB/CREAT RATIO URINE RANDOM PANEL (07/23/2020 6:49 AM CDT) Only the most recent of3 resultswithin the time period is included. Creatinine Urine 270 20 - 320 mg/dL [...] within a diagnostic category. Test Performed at: [employer] [address] EH PURVIS DO,MPH 07/23/2020 6:49 AM CDT 07/23/2020 6:51 AM CDT Lisy Olmedo MD LAB - URINE C HEMISTRY ORDERABLES Performing Organization Address City/State/[facility] Co de Phone Number [facility] [address] [place] [address] * CHLAMYDIA + GC AMPLIFIED PROBE (07/23/2020 6:49 AM CDT) Chlamydia trachomatis RNA NOT DETECTED NOT DETECTED [facility] GC RNA NOT DETECTED NOT DETECTED [facility] Please Note [facility] Comment: The analytical performance characteristics of this assay, when used to test SurePath(TM) specimens have been determined by [email or web address]. The modifications have not been cleared or approved by the FDA. This assay has been validated pursuant to the CLIA regulations and is used for clinical purposes. For additional information, please refer to https://education.[employer]/faq/EOB544 (This link is being provided for information/ educational purposes only.) Test Performed at: [email or web address] [facility] [address] [place] [address] EH PURVIS DO,MPH 07/23/2020 6:49 AM CDT 07/23/2020 6:51 AM CDT Lisy Olmedo MD LAB - MICROBI OLOGY ORDERABLES Performing Organization Address [facility] Co de Phone Number [facility] [address] [place] [phone] * CARDIAC REHAB (06/14/2020 11:50 AM CDT) [...] sternotomy. Dictated by Yeyo Birmingham MD (residential support worker). Dr. Lobito Jules M.D. have personally reviewed and interpreted this examination/study. This report was electronically signed by Lobito VAZQUEZ M.D. on 02/12/2019 4:18 PM . Narrative 02/12/2019 4:18 [...] sternotomy. Dictated by Yeyo Birmingham MD (residential support worker). Dr. Lobito Jules M.D. have personally reviewed and interpretedthis examination/study. This report was electronically signed by Lobito VAZQUEZ M.D. on 02/12/2019 4:18 PM . Nehemias Dennis MD CT ORDERABLES * CREATININE BLOOD - POCT (IP) [facility] (02/11/2019 4:58 PM CDT) Creatinine POCT 1.20 0.3 - 1.3 mg/dL [facility] POCT TESTING eGFR POCT 60 60 ml/min [facility] TEST[facility] Blood BLOOD SPECIMEN / Unknown 02/11/2019 4:58 PM CDT Nehemias Dennis MD LAB - POINT OF CAR E ORDERABLES [facility] POCT TESTING [address] [phone] * NM [facility] PERFUSION SPECT STRESS AND REST (09/06/2018 12:52 PM BILLING MANAGER) Anatomical Region Laterality Modality Chest Nuclear Medicine 09/06/2018 1:20 PM BILLING MANAGER Narrative 09/06/2018 1:22 PM BILLING MANAGER NM MYOCARDIAL SPECT SCAN Indications for examination: [...] MD on 09/06/2018 at 1:22 PM Silvia TAPIA [place] ORDERABLES * STRESS TEST LEXISCAN (NUCLEAR) (09/06/2018 11:47 AM BILLING MANAGER) Stress Test Summary For full formatted report, please see the report link in the order. Acquisition Time: 2018-09-06 11:47:08 Total Exercise Time: 00:01:09 Test Indications: CHEST PAIN Medications: Protocol: LEXISCAN Max HR: 091 BPM 56% of Pred: 161 BPM Max BP: 175/109 mmHG Max Work Load: 1.0 METS Reason for Termination: Resting ECG: Sinus Rhythm T wave inversion Functional Capacity: HR Response to Exercise: BP Resoonse to Exercise: Chest Pain: No Chest Pain Arrhythmias: No Arrhythmias ST Changes: No Changes From Baseline Overall Impression: Findings to be correlated w/imaging report Diagnosis: Confirmed by PRESTON HEBERT MD ([id number]) on 09/06/2018 12:02:51 PM Attending Physician: Referred By: Overread By: PRESTON HEBERT MD [facility] STRESS 09/06/2018 11:4 7 AM BILLING MANAGER 09/06/2018 12:02 PM BILLING MANAGER Silvia TAPIA CARDIAC SERVICES O RDERABLES [facility] STRESS * ECHOCARDIOGRAM 2D WITH DOPPLER (09/06/2018 10:15 AM BILLING MANAGER) 09/06/2018 10:1 5 AM BILLING MANAGER Narrative [facility] CARDIAC SERVICES - 09/07/2018 9:13 AM BILLING MANAGER [address] [address] Transthoracic Echocardiogram 2D, M-mode, Doppler, and Color Doppler Patient: RAZA VAZQUEZ MR number: [id number] Height: 75 in Weight: 330 lb BSA: 2.72 m Study date: 06-Sep-2018 : 1960 Age: 57 years Gender: Male Race: Black Allergies: LISINOPRIL, PENICILLINS, PENICILLIN V Diagnoses: R07.89 - Other chest pain Reading Physician: Jose Jonas MD Referring Physician: Jose Jonas MD ACCOUNTS RECEIVABLE ASSOCIATE: Mirna Llanos STEFANIE Cardiology Group: [facility] Summary: - History: - CAD - Left ventricle: - Systolic function was at the lower limits of normal. Ejection fraction was estimated to be 50 %. - There were no regional wall motion abnormalities. - Wall thickness was normal. Indications: Evaluate chest pain. History: Prior history: CAD Risk factors: hypertension. Diabetes. Procedure: The study was performed in the [facility]. This was a routine study. The transthoracic [...] MV A Richard: 0.7 m/s MV Dec [place]: 4.6 m/s2 MV E Richard: 0.9 m/s MV E/A Ratio: 1.4 Septal e': 0 m/s Prepared and signed by Jose Jonas MD Signed 07-Sep-2018 09:12:59 Procedure Note Unknown, Provider, - 09/07/[address] [address] Transthoracic Echocardiogram 2D, M-mode, Doppler, and Color Doppler Patient: RAZA VAZQUEZ MR number: [id number] Height: 75 in Weight: 330 lb BSA: 2.72 m Study date: 06-Sep-2018 : 1960 Age: 57 years Gender: Male Race: Black Allergies: LISINOPRIL, PENICILLINS, PENICILLIN V Diagnoses: R07.89 - Other chest pain Reading Physician: Jose Jonas MD Referring Physician: Jose Jonas MD ACCOUNTS RECEIVABLE ASSOCIATE: Mirna Llanos RDCS Cardiology Group: [facility] Summary: - History: - CAD - Left ventricle: - Systolic function was at the lower limits of normal. Ejection fraction was estimated to be 50 %. - There were no regional wall motion abnormalities. - Wall thickness was normal. Indications: Evaluate chest pain. History: Prior history: CAD Risk factors: hypertension. Diabetes. Procedure: The study was performed in the [facility]. This was a routine study. The transthoracic [...] MV A Richard: 0.7 m/s MV Dec [place]: 4.6 m/s2 MV E Richard: 0.9 m/s MV E/A Ratio: 1.4 Septal e': 0 m/s Prepared and signed by Jose Jonas MD Signed 07-Sep-2018 09:12:59 Sumi Garcia MD ECHO ORDERABLES DP CARDIAC SERVICES * CARDIAC STRESS TEST ORDER [...] SAL DOHERTY on 01/29/2018 1:35 PM . Narrative 01/29/2018 1:35 [...] on 01/29/2018 1:35 PM . Rosendo Fernandez STRATEGIC PARTNER DEVELOPMENT MANAGER-MILITARY PILOT DIAGNOSTIC I MAGING ORDERABLES * URINALYSIS DIPSTICK AUTO (01/28/2018 9:35 PM CDT) Color UA Yellow Straw, Yellow, Colorless, Light Yellow 01/28/2018 9:50 PM [facility] Clarity UA Clear Clear 01/28/2018 9:50 PM [facility] Specific [place] UA 1.015 1.001 - 1.030 01/28/2018 9:50 PM [facility] pH UA 5.0 5.0 - 8.0 01/28/2018 9:50 PM [facility] Protein UA Negative <=20 mg/dL 01/28/2018 9:50 PM [facility] Glucose UA Negative Negative mg/dL 01/28/2018 9:50 PM [facility] Ketone UA Negative Negative mg/dL 01/28/2018 9:50 PM [facility] Bilirubin UA Negative Negative mg/dL 01/28/2018 9:50 PM [facility] Blood UA Negative Negative 01/28/2018 9:50 PM [facility] Nitrite UA Negative Negative 01/28/2018 9:50 PM [facility] Leukocyte Esterase Negative Negative 01/28/2018 9:50 PM [facility] Urobilinogen UA <2.0 <2.0 mg/dL 8 9:50 PM [facility] Urine URINE SPECIMEN OBTAINED BY CLEAN CATCH PROCEDURE / Unknown Collection / Unknown 01/28/2018 9:35 PM CDT 01/28/2018 9:35 PM CDT Rosendo Fernandez STRATEGIC PARTNER DEVELOPMENT MANAGER-MILITARY PILOT LAB - URINAL YSIS ORDERABLES Performing Organization Address [facility]/ZIP Co de Phone Number [address] [phone] * HEPARIN PLATELET INDUCED ANTIBODY (01/26/2018 9:18 AM CDT) Interpretation Heparin Platelet Antibody Negative Negative 01/26/2018 2:49 PM CDT [facility] Comment: Heparin induced thrombocytopenia (HIT) is unlikely in the presence of a negative HIT antibody test result by CAROLE and low pretest probability for type II HIT (scoring system of [place]). It is suggested to verify positive HIT CAROLE antibody test results by HIT Antibody Serotonin Release Assay. HIT CAROLE Patient OD 0.132 <0.400 OD 01/26/2018 2:49 PM CDT [facility] Blood BLOOD SPECIMEN / Unknown 01/26/2018 9:18 AM CDT 01/26/2018 9:47 AM CDT Ethan Hancock MD LAB - CHEMISTRY ORDE RABLES Performing Organization Address [facility] Co de Phone Number [address] [phone] * ECHO FU OR LIMITED (01/25/2018 12:19 PM CDT) Anatomical Region Laterality Modality Color Flow Doppl er 01/25/2018 10:1 9 AM CDT Narrative Procedure Note Lulu rGeenwood MD - 01/31/2018 Ethan Hancock MD ECHOCARDIOGRAPHY RAD IANT * (ABNORMAL) CALCIUM IONIZED WHOLE BLOOD (01/25/2018 9:05 AM CDT) Only the most recent of4 resultswithin the time period is included. Ionized Calcium Whole Blood 1.02 mmol/L 01/25/2018 9:09 AM CDT [facility] Adjusted Ionized Calcium 1.03(L) 1.19 - 1.34 mmol/L 01/25/2018 9:09 AM T [facility] pH Whole Blood 7.42 7.35 - 7.45 01/25/2018 9:09 AM [facility] Blood BLOOD SPECIMEN / Unknown Venipuncture / Unknown 01/25/2018 9:05 AM CDT 01/25/2018 9:07 AM CDT Fabienne Cardona MD LAB - CHEMISTRY ORDE RABLES Performing Organization Address [facility] Co de Phone Number [address] [phone] * PT-INR [facility] (01/25/2018 12:26 AM CDT) Only the most recent of5 resultswithin the time period is included. PT 14.2 12.1 - 14.8 Seconds 01/25/2018 12:56 AM [facility] INR 1.1 See Comment 01/25/2018 12:56 AM [facility] Comment: Suggested therapeutic range for low-intensity coumadin therapy for venous thromboembolism prophylaxis is an INR of 2.0-3.0. For high risk patients (Mitral Valve Prosthesis, Atrial Fibrillation, history of TIA/stroke), suggested prophylactic therapeutic range is an INR of 2.5-3.5. Blood BLOOD SPECIMEN / Unknown Venipuncture / Unknown 01/25/2018 12:26 AM CDT 01/25/2018 12:39 AM CDT Fabienne Cardona MD LAB - COAGULATION OR DERABLES Performing Organization Address [facility] Co de Phone Number [address] [phone] * (ABNORMAL) SVO2 FOR RECALIBRATION (01/25/2018 12:26 AM CDT) Only the most recent of2 resultswithin the time period is included. SVO2 for Recalibration 80.6(H) 66.0 - 77.0 % 01/25/2018 12:46 AM T [facility] Blood BLOOD SPECIMEN / Unknown Venipuncture / Unknown 01/25/2018 12:26 AM CDT 01/25/2018 12:39 AM CDT Fabienne Cardona MD LAB - CHEMISTRY CHRISTIAN RAZO Performing Organization Address [facility]/ZIP Co de Phone Number [address] [phone] * ECHO AMANDO TRANSESOPHAGEAL (01/24/2018 4:49 PM CDT) Anatomical Region Laterality Modality Color Flow Doppl er 01/24/2018 6:25 AM CDT Narrative Procedure Note Rosalee Ivory MD - 04/24/2018 Ethan Hancock MD ECHOCARDIOGRAPHY RAD IANT * PTT [facility] (01/24/2018 3:40 PM CDT) Only the most recent of3 resultswithin the time period is included. APTT 35.7 23.0 - 38.4 Seconds 01/24/2018 4:17 PM CDT [facility] Comment: Suggested therapeutic range for full dose I.V. heparin therapy for venous thromboembolism is 66.0-91.0 seconds. Blood BLOOD SPECIMEN / Unknown Venipuncture / Unknown 01/24/2018 3:40 PM CDT 01/24/2018 3:53 PM CDT Caryn Zhao PA-C LAB - COAGULATION O RDERABLES Performing Organization Address City/[facility]/[place] [address], [facility] [phone] * FIBRINOGEN ACTIVITY (01/24/2018 3:40 PM CDT) Only the most recent of2 resultswithin the time period is included. Fibrinogen [place] 302 200 - 400 mg/dL 01/24/2018 4:16 PM CDT [facility] Blood BLOOD SPECIMEN / Unknown Venipuncture / Unknown 01/24/2018 3:40 PM CDT 01/24/2018 3:53 PM CDT Caryn Zhao PA-C LAB - COAGULATION O RDERABLES [facility] [address] [place] [address], [facility] [phone] * (ABNORMAL) BLOOD GASES ART COMPLETE [facility] OR (01/24/2018 1:45 PM CDT) Only the most recent of3 resultswithin the time period is included. pH Arterial 7.26(L) 7.35 - 7.45 01/24/2018 1:55 PM [facility] pCO2 Arterial 55(H) 35 - 45 mmHg 01/24/2018 1:55 PM [facility] pO2 Arterial 315(H) 71 - 95 mmHg 01/24/2018 1:55 PM [facility] HCO3 Arterial 24.2 22.0 - 26.0 mmol/L 01/24/2018 1:55 PM [facility] TCO2 Arterial 25.9 25.0 - 29.0 mmol/L 01/24/2018 1:55 PM [facility] Base Excess Arterial -3.1(L) -2.0 - 2.0 mmol/L 01/24/2018 1:55 PM [facility] Hemoglobin Arterial 9.5(L) 13.5 - 17.5 g/dL 01/24/2018 1:55 PM [facility] Oxyhemoglobin Arterial 98.1 95.0 - 100.0 % 01/24/2018 1:55 PM [facility] Carboxyhemoglobin 0.3 0.0 - 3.0 % 01/24/2018 1:55 PM [facility] Methemoglobin 0.2 0.0 - 2.0 % 01/24/2018 1:55 PM [facility] FI O2 Arterial 100.0 % 01/24/2018 1:55 PM [facility] Ionized Calcium Whole Blood 1.06 mmol/L 01/24/2018 1:55 PM [facility] Adjusted Ionized Calcium 0.99(L) 1.19 - 1.34 mmol/L 01/24/2018 1:55 PM [facility] Sodium Whole Blood 135 135 - 145 mmol/L 01/24/2018 1:55 PM [facility] Potassium Whole Blood 5.2 3.5 - 5.5 mmol/L 01/24/2018 1:55 PM [facility] Chloride Whole Blood 102 101 - 111 mmol/L 01/24/2018 1:55 PM [facility] Glucose Whole Blood 138(H) 70 - 110 mg/dL 01/24/2018 1:55 PM [facility] Lactic Acid Whole Blood 1.1 0.5 - 3.4 mmol/L 01/24/2018 1:55 PM [facility] Blood ARTERIAL BLOOD SPECIMEN / Unknown Venipuncture / Unknown 01/24/2018 1:45 PM CDT 01/24/2018 1:53 PM T Fabienne Cardona MD LAB - BLOOD GASES OR DERABLES Performing Organization Address City/State/[facility] Co de Phone Number [address] [phone] * (ABNORMAL) BLOOD GASES JOSEPH (01/24/2018 11:50 AM [facility]) pH Mixed Venous 7.31 7.30 - 7.40 01/24/2018 11:58 AM [facility] pCO2 Mixed Venous 50(H) 40 - 46 mmHg 01/24/2018 11:58 AM [facility] pO2 Mixed Venous 45(H) 35 - 42 mmHg 01/24/2018 11:58 AM [facility] HCO3 Mixed Venous 24.7 22.0 - 26.0 mmol/L 01/24/2018 11:58 AM [facility] TCO2 Mixed Venous 26.3 25.0 - 29.0 mmol/L 01/24/2018 11:58 AM [facility] Base Excess Venous -1.7 -2.0 - 2.0 mmol/L 01/24/2018 11:58 AM [facility] Hemoglobin Mixed Venous 9.3(L) 13.5 - 17.5 g/dL 01/24/2018 11:58 AM [facility] Oxyhemoglobin Mixed Venous 75.1 66.0 - 77.0 % 01/24/2018 11:58 AM CDT [facility] Carboxyhemoglobin Venous 0.6 0.0 - 3.0 % 01/24/2018 11:58 AM CDT [facility] Methemoglobin 0.5 0.0 - 2.0 % 01/24/2018 11:58 AM CDT [facility] FI O2 Mixed Venous 75.0 % 2017 11:58 AM CDT [facility] Blood BLOOD SPECIMEN / Unknown Venipuncture / Unknown 01/24/2018 11:50 AM CDT 01/24/2018 11:55 AM CDT Fabienne Cardona MD LAB - BLOOD GASES OR DERABLES [address] [phone] * PREPARE (CROSSMATCH) RBC UNIT(S), 4 Units (01/24/2018 7:31 AM CDT) Only the most recent of2 resultswithin the time period is included. Unit Description LR Red Cells [facility] B[facility]OD [facility] LAB Unit ABO O [facility] Unit Rh NEG [facility] Product Code RL1 [facility] Unit Number [id number] [facility] Unit Status Selected [facility] Product Number [id number] [facility] Blood Type Barcode 9500 [facility] Unit Description LR Red Cells [facility] Unit ABO O [facility] Unit Rh NEG [facility] Product Code RL1 [facility] BLO OD [facility] LAB Unit Number [id number] 5 [facility] Unit Status Selected [facility] D [facility] Product Number [id number] [facility] B LOOD [facility] Blood Type Barcode 9500 [facility] Product Code RL1 [facility] Unit Donor # [id number] 4 [facility] Unit Status released [facility] Product Code RL1 [facility] Unit Donor # [id number] 5 [facility] B[facility] Unit Status released [facility] D [facility] LAB Blood Bank BLOOD SPECIMEN / Unknown 01/24/2018 7:31 AM CDT 01/24/2018 7:31 AM CDT Fabienne Cardona MD LAB - BLOOD BANK ORD ERABLES [facility] [address] * (ABNORMAL) URINALYSIS W/MICROSCOPIC NO CULTURE (01/11/2018 3:48 PM CDT) Color UA Yellow Straw, Yellow, Colorless, Light Yellow [facility] Clarity UA Clear Clear [facility] Specific [place] UA 1.019 1.001 - 1.030 [facility] [...] Cardona MD LAB - URINALYSIS ORD ERABLES [address] [phone] * VAS CAROTID DUPLEX BILATERAL (12/21/2017 2:23 PM BILLING MANAGER) Anatomical Region Laterality Modality Other Fabienne Cardona MD VASCULAR LAB ORDERAB LES * CT CHEST WO CONTRAST (12/21/2017 1:46 PM BILLING MANAGER) Anatomical Region Laterality Modality Chest Other Impressions 12/21/2017 5:14 PM BILLING MANAGER IMPRESSION: 1. Mildly dilated/ectatic aortic root measuring 4.1 cm in diameter. No significant atherosclerotic calcifications at the aortic root. 2. Multiple right upper lobe subpleural nodules measuring up to 3 mm. If the patient is high risk, follow-up CT is optional at 12 months. If the patient is low risk, no follow-up is required. Dictated by Yeyo Birmingham M.D. (residential support worker) without I, Dr. Lobito VAZQUEZ M.D. have personally reviewed and interpreted this examination/study. This report was electronically signed by Lobito VAZQUEZ M.D. on 12/21/2017 5:14 PM . Narrative 12/21/2017 5:14 PM BILLING MANAGER EXAMINATION: Computed tomography (CT) of the chest [...] is required. Dictated by Yeyo Birmingham M.D. (residential support worker) bradley Jules, Dr. Lobito VAZQUEZ M.D. have personally reviewed and interpreted thisexamination/study. This report was electronically signed by Lobito VAZQUEZ M.D. on12/21/2017 5:14 PM . Fabienne Cardona MD CT ORDERABLES * XR CHEST 2VW (12/21/2017 1:33 PM BILLING MANAGER) Anatomical Region Laterality Modality Chest Other Impressions 12/21/2017 3:42 PM BILLING MANAGER IMPRESSION: No acute pulmonary process. Dictated by Airam Gibson MD (residential support worker). This report was approved by Airam Gibson on 12/21/2017 2:[address] ARGENTINA Jules M.D. have personally reviewed and interpreted this examination/study. This report was electronically signed by ARGENTINA MARTIN M.D. on 12/21/2017 3:42 PM . Narrative 12/21/2017 3:42 PM BILLING MANAGER EXAMINATION: XR CHEST PA AND LATERAL HISTORY: [...] pulmonary process. Dictated by Airam Gibson MD (residential support worker). This report was approved by Airam Gibson on 12/21/2017 2:[address] ARGENTINA Jules M.D. have personally reviewed and interpreted thisexamination/study. This report was electronically signed by ARGENTINA MARTIN M.D. on 12/21/20173:42 PM . Fabienne Cardona MD DIAGNOSTIC IMAGING O RDERABLES * CCL CATH LEFT HEART ARTERY VENTRICLE (11/16/2017 11:23 AM BILLING MANAGER) Anatomical Region Laterality Modality X-Ray Angiograph y Narrative 12/06/2017 9:57 AM [facility] Cardiac Catheterization Procedure Note Patient: Raza Vazquez Age: 57 y.o. Date of : 1960 Date of Admission: 11/16/17 Procedure Date: 11/16/17 FELLOW / CRYOGENICS ENGINEER: Kavon Daley MD ATTENDING PHYSICIAN: Ofelia Johnson MD PREVIOUS STRESS STUDIES WITHIN 6 MONTHS: 11/02/2017 I. Type:exercise nuclear II. Findings: 1. Abnormal [...] cardiology clinic for new-onset of chest discomfort. The patient underwent exercise nuclear stress test summary above), which was abnormal. Pain persisted (although somewhat improved) on 2 antianginal medications. Thus, the patient was referred for diagnostic cardiac catheterization and coronary angiography. ACCESS SITE(S): left radial artery PROCEDURAL OVERVIEW: After obtaining informed consent and positioning the patient on the catheterization table, a timeout was performed to confirm the patient s name, date of , and procedure. Sedation was initiated and the patient was prepped and draped using standard sterile technique. Lidocaine was used for local anesthesia over the access site, after which the vessel was accessed and a sheath was placed using the modified Seldinger technique. Access was uncomplicated. Intra-arterial verapamil and intravenous heparin were administered to minimize risk of radial artery spasm or occlusion. Coronary angiography was performed using FL4 6F and FR4 6F catheters. Left heart catheterization was performed using a FR4 6F catheter. At the conclusion of the procedure, hemostasis was achieved using a radial compression device after removal of all catheters, wires, and sheaths. SEDATION: moderate sedation [...] evaluation, please review the evaluation forms in [facility]. For details on monitored clinical parameters during the intra-service sedation time, please review the procedure nurse documentation in [facility]. COMPLICATIONS: none HEMODYNAMIC FINDINGS: AO: 117/70 [...] is without angiographic evidence of atherosclerotic disease. DOMINANCE: Right DIAGNOSTIC [...] Procedure Note Ofelia Johnson MD - 03/22/2018 [facility] Cardiac Catheterization Procedure Note Patient: Raza Vazquez Age: 57 y.o. Date of : 1960 Date of Admission: 11/16/17 Procedure Date: 11/16/17 FELLOW / CRYOGENICS ENGINEER: Kavon Daley MD ATTENDING PHYSICIAN: Ofelia Johnson MD PREVIOUS STRESS STUDIES WITHIN 6 MONTHS: 11/02/2017 I. Type:exercise nuclear II. Findings: 1. Abnormal [...] a timeout was performed to confirm the patient s name, date of , and procedure. Sedation was [...] patient evaluation,please review the evaluation forms in [facility]. For details on monitoredclinical parameters during the intra-service sedation time, please reviewthe procedure nurse documentation in [facility]. COMPLICATIONS: none HEMODYNAMIC FINDINGS: AO: 117/70 [...] Ofelia Johnson MD Jeffrey Jo MD CARDIAC ELECTRONICS DETAIL DRAFTSPERSON RAD IANT * ECHO W DOPPLER AND COLOR FLOW (11/16/2017 12:00 AM BILLING MANAGER) Anatomical Region Laterality Modality Other 11/16/2017 Jeffrey Jo MD ECHOCARDIOGRAPHY RAD IANT * PROC CARDIOLYTE STRESS TEST (11/06/2017 12:51 PM BILLING MANAGER) Narrative [facility] - 11/06/2017 12:51 PM BILLING MANAGER Patient Name: Raza Vazquez : 1960 CPT Codes: 37018 Study: Exercise Myocardial Perfusion - One Day [...] BPM or 93% age-predicted maximum heart rate. Exercise was terminated due to dyspnea. The resting blood pressure was 138/88 and was 162/92 at peak exercise. The blood pressure response to exercise was hypertensive. The resting ECG revealed normal sinus rhythm. The stress ECG revealed [address] depression in leads II,III,AVF and V6 consistent with ischemia. There were no significant arrhythmias. The patient experienced dyspnea symptoms during the procedure. Myocardial Perfusion Imaging: SPECT myocardial perfusion imaging was performed at rest 35 minutes following the I.V. injection of 16.1 mCi of Tc99m sestamibi. At peak exercise, the patient was injected with 42.4 mCi Tc99m Sestamibi. Gated SPECT imaging was performed 30 minutes after stress. The overall quality of the study is good . There was no significant signs of attenuation. TID was 1.02 and the lung-heart ratio was 0.30 which is normal. SPECT imaging revealed a moderate sized reversible perfusion defect in the inferior and inferolateral segments consistent with ischemia. The global ejection fraction was 47%. Regional wall motion analysis showed inferior wall hypokinesis. Conclusion: Myocardial perfusion imaging is abnormal. Overall left ventricular systolic function was abnormal with regional wall motion abnormalities as described above. The type and distribution of the scintigraphic finding is consistent with moderately severe inferior and inferolateral ischemia. No previous study was available for comparison. Electronically signed by: Rosalee Ivory MD Date of Interpretation: 11/06/17 Date of Final Report: 11/06/17 Procedure Note Provider, MD Navarro - 03/22/2018 Patient Name: Raza Vazquez : 1960 CPT Codes: 89743 Study: Exercise Myocardial Perfusion - One Day [...] 11/06/17 Date of Final Report: 11/06/17 Lisy R Shara DAVIS ECG ORDERABLE S [facility] * PROC STRESS TEST EXERCISE (11/02/2017 5:23 PM BILLING MANAGER) Narrative [facility] - 11/02/2017 5:23 PM BILLING MANAGER Patient Name: Raza Vazquez Patient : 1960 CPT Codes: 82026 Study: Exercise Treadmill Electrocardiogram Date of Procedure: [...] reaching stage 3 of the Domenic protocol. Peak Heart rate was 151 bpm or 93% of age predicted maximum and peak blood pressure was 162/92 mmHg. The estimated workload was 8.2 METs. 2. The test was stopped because of dyspnea. Standing rest heart rate was 78bpm and rest blood pressure was 138/88mmHg. 3. Chest pain: none Interpretation: 1. Rest ECG: Sinus with inferior T wave abnormality. 2. Exercise ST segment depression: Abnormal. Exercised induced a maximum of [address] depression in leads 2,3,avF,V6 which started 5 minutes into exercise and resolved 2 minutes into recovery.} 3. Exercise ST segment elevation: [...] Name: Raza Vazquez Patient :1960 CPT Codes: 99439 Study: Exercise Treadmill Electrocardiogram Date of Procedure: [...] because of dyspnea. Standing rest heart rate [id number] and rest blood pressure was 138/88mmHg. 3. [...] 11/02/2017 Lisy Olmedo MD ECG ORDERABLE S [facility] RADIOLOGY * PROSTATE SPECIFIC ANTIGEN SCREEN (09/18/2014 9:18 AM BILLING MANAGER) PSA Total 1.4 < OR = 4.0 ng/mL [facility] ([facility]) Comment: This test was performed using the Siemens chemiluminescent method. Values obtained from different assay methods cannot be used interchangeably. PSA levels, regardless of value, should not be interpreted as absolute evidence of the presence or absence of disease. Test Performed at: [facility] [place] [address] [facility] [place] [address] EH PURVIS DO,MPH Venous blood specimen (specimen) 09/18/2014 9:18 AM BILLING MANAGER 09/18/2014 9:19 AM BILLING MANAGER Lisy Olmedo MD LAB - FREIGHT ELEVATOR ERECTOR RY ORDERABLES [facility]) Care Teams Corporate Administrator Relationship Specialty Start Date End Date Kiana Cole MD [address] [place] [address] PCP - General Internal Medicine 09/16/24 Sylvain Daniels MD Family Medicine 02/15/24
--- OUTSIDE RECORDS SUMMARY | 2024-11-25 20:49 | XMS_ITS | Encounter Summary ---
Author Organization [facility] Health Address [address] [facility] [place] [address] Care Team Providers Care Advanced Practice Psychiatric Nurse Name Role Phone Sylvain Daniels MD Unavailable [phone] Kiana Cole MD Primary Care Provider Sean Kyle MD Primary Care Provider [phone] Kiana Cole MD Primary Care Provider Reason for Visit * Reason Onset Date Comments Future Appointment 06/10/2024 Encounter Details Date Type Department Care Team (Late st Contact Info) Description 06/10/2024 Telephone [facility] - Cardiology [address] [facility] [place] [place] [address] Andrae Norton MD [address] [facility] [place] [address] Future Appointment Social History Tobacco [...] Recorded Patient Health Questionnaire-2 Score 0 06/04/2024 [facility] - Occupational [...] slept in a [facility] (including now)? No 05/26/2024 Education Answer Date [...] st Contact Info) Description 11/28/2024 9:00 AM PHYSICIAN GYNECOLOGIST [facility] [address] [facility] [place] [address] Aline Finch MD [address] [place] [address] 02/10/2025 10:00 AM CDT Office Visit [facility] - Cardiology [address] [facility], [facility] [address] [place] [address] Curly Lay MD [address] [facility] [address] [place] [address] documented as of this encounter Visit Diagnoses Not on filedocumented in this encounter Care Teams Advanced Practice Psychiatric Nurse Relationship Specialty Start Date End Date Kiana Cole MD [address] [place] [address] PCP - General Internal Medicine 05/22/24 08/04/24 Sean Kyle MD [address] [place] [address] PCP - General Internal Medicine 08/05/24 09/15/24 Kiana Cole MD [address] [place] [address] PCP - General Internal Medicine 09/16/24 Sylvain Daniels MD Family Medicine 02/15/24 documented as of this encounter
[2024-11-25 21:35] LABS: Influenza A QL RT-PCR Negative (Negative); Influenza B QL RT-PCR Negative (Negative); RSV RNA, RT-PCR Negative (Negative); SARS-CoV-2 RNA PCR Positive (Negative)
--- OUTSIDE RECORDS SUMMARY | 2024-11-25 23:42 | XMS_ITS | CCD ---
Author Name Saroj DAVIS, Dr Amanda escalona Address [address] [facility] [address] [place] [address] Phone Organization [facility] Phone Care Team Providers Care Computer Help Desk Representative Name Role Phone Unavailable Primary Care Provider Unavailabl e Unavailable Chronic Care Management Unavaila ble Summary Purpose DataExchange Insurance Providers Payer name Policy type / Coverage type Covered constitution party ID Effective Begin Date Effective End Date [place] [id number] Unknown Family history Sister Diagnosis Age At [...] No Inactive Date Active LISINOPRIL angioedema RxNorm: 96260 05/21/2024 No Inactive D ate Active Penicillin [...] Syncope ICD-10: R55 ICD-9: 780.2 06/24/2024 Active nursing home (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 ICD-10: Z79.4 05/21 Active Urinary incontinence ICD-10: R32 ICD-9: 788.30 05/21/2024 Active Medications Medication Codes Instructions Start Date Stop Date Status Fill Instructions ipratropium 0.5 mg-albuterol 3 mg (2.5 mg base)/3 mL nebulization soln RxNorm: 6515562 Inhale 3 Milliliter(s) Inhalation every 6 hours as needed for shortness of breath 4 11/19/19 25 Inactive albuterol sulfate HFA 90 mcg/actuation aerosol inhaler RxNorm: 4911704 Administer 2 Puff(s) Inhalation every 4 to 6 hours 4 12/20/19 25 Active buspirone 5 mg tablet RxNorm: 466096 Take 1 Tablet(s) Oral three times a day 4 10/26/19 25 Inactive Senna Plus 8.6 mg-50 mg tablet RxNorm: 220544 Take 2 Tablet(s) Oral two times a day as needed for constipation 4 07/28/20 24 Inactive multivitamin tablet RxNorm: Take 1 Tablet(s) Oral every day 4 10/20/19 26 Active buspirone 5 mg tablet RxNorm: 754369 Take 1 Tablet(s) Oral two times a day 4 10/16/19 26 Active polyethylene glycol 3350 17 gram/dose oral powder RxNorm: 028859 Use 1 Unit Dose Oral every day Mix 17g (one capful) with 8oz liquid. Hold for loose stools. 4 08/17/20 25 Active ipratropium 0.5 mg-albuterol 3 mg (2.5 mg base)/3 mL nebulization soln RxNorm: 3779870 Administer 3 Milliliter(s) Inhalation every 6 hours as needed for shortness of breath 4 08/22/20 24 Inactive buspirone 5 mg tablet RxNorm: 243811 Take 1 Tablet(s) Oral three times a day 07/23/20 24 Inactive aspirin 81 mg chewable tablet RxNorm: 520537 Take 1 Tablet(s) Feeding Tube / PEG every day 08/13/20 25 Active atorvastatin 40 mg tablet RxNorm: 335765 Take 1 Tablet(s) Feeding Tube / PEG every night at bedtime 08/13/20 25 Active amlodipine 10 mg tablet RxNorm: 335875 Take 1 Tablet(s) Feeding Tube / PEG once daily 08/13/20 25 Active clopidogrel 75 mg tablet RxNorm: 877756 Take 1 Tablet(s) Feeding Tube / PEG once daily 08/13/20 25 Active Pen Needle 31 gauge x 5/16 RxNorm: Take 1 Pen Needle Subcutaneous three times a day 08/13/20 25 Active famotidine 20 mg tablet RxNorm: 167131 Take 1 Tablet(s) Feeding Tube / PEG two times a day 08/13/20 25 Active thiamine HCl (vitamin B1) 100 mg tablet RxNorm: 425924 Take 1 Tablet(s) Feeding Tube / PEG every day 08/13/20 25 Active folic acid 1 mg tablet RxNorm: 882719 Take 1 Tablet(s) Feeding Tube / PEG every day 08/13/20 25 Active multivit-mineral -folic acid 333 mcg-lutein 3 mg-zeaxant 0.67 mg tablet RxNorm: Take 1 Tablet(s) Oral every day 4 No Stop Date Active Lantus Solostar U-100 Insulin 100 unit/mL (3 mL) subcutaneous pen RxNorm: 756453 Administer 15 Unit(s) Subcutaneous every night at bedtime 08/13/20 25 Active loratadine 10 mg tablet RxNorm: 436416 Take 1 Tablet(s) Feeding Tube / PEG every day 08/13/20 25 Active Senna Plus 8.6 mg-50 mg tablet RxNorm: 818957 Take 2 Tablet(s) Feeding Tube / PEG two times a day as needed for constipation 07/29/20 24 Inactive albuterol sulfate HFA 90 mcg/actuation aerosol inhaler RxNorm: 2410978 Administer 2 Puff(s) Inhalation every 4 to 6 hours 4 05/21/20 24 Inactive Medication Administered No Medication Administered data Results Observation Observation Code Item Item Code Result Date Service Location COMPLETE CBC W/ DIFF WBC 78479 WBC 6690-2 6.8 K/ul [facility] [address] [place] [address] 23281 COMPLETE CBC W/ DIFF WBC 18795 RBC 789-8 3.89 M/uL [facility] [address] [place] [address] 61819 COMPLETE CBC W/ DIFF WBC 31805 Hemoglobin 718-7 10.6 g/dL [facility] [address] [place] [address] 58454 COMPLETE CBC W/ DIFF WBC 02267 Hematocrit 4544-3 32.2 % [facility] [address] [place] [address] 05648 COMPLETE CBC W/ DIFF WBC 86104 MCV 787-2 82.9 fL [facility] [address] [place] [address] 45026 COMPLETE CBC W/ DIFF WBC 29735 MCH 785-6 27.3 pg 024 [facility] [address] [place] [address] 73182 COMPLETE CBC W/ DIFF WBC 36290 MCHC 786-4 32.9 g/dL 024 [facility] [address] [place] [address] 81917 COMPLETE CBC W/ DIFF WBC 95268 RDW 788-0 15.5 % 024 [facility] [address] [place] [address] 84046 COMPLETE CBC W/ DIFF WBC 13870 Platelet Count 777-3 303 K/uL 024 [facility] [address] [place] [address] 16854 COMPLETE CBC W/ DIFF WBC 25730 MPV 58749-9 8.0 fL [facility] [address] [place] [address] 83871 COMPLETE CBC W/ DIFF WBC 97195 Neutrophils % 770-8 51.2 % [facility] [address] [place] [address] 19627 COMPLETE CBC W/ DIFF WBC 20668 Lymphocytes % 736-9 39.8 % 08/08/2 024 [facility] [address] [place] [address] COMPLETE CBC W/ DIFF WBC 18895 Monocytes % 5905-5 6.7 % 024 [facility] [address] [place] [address] COMPLETE CBC W/ DIFF WBC 63371 Eosinophils % 713-8 2.1 % 024 [facility] [address] [place] [address] COMPLETE CBC W/ DIFF WBC 35725 Basophils% 706-2 0.2 % 024 [facility] [address] [place] [address] COMPLETE CBC W/ DIFF WBC 30765 Absolute Neutrophil 751-8 3482 /ul 024 [facility] [address] [place] [address] 44097 COMPLETE CBC W/ DIFF WBC 45096 Absolute Lymphocyte 50639-8 2706 /ul 024 [facility] [address] [place] [address] 61978 COMPLETE CBC W/ DIFF WBC 74339 Absolute Monocyte 742-7 456 /ul 024 [facility] [address] [place] [address] 76482 COMPLETE CBC W/ DIFF WBC 65468 Absolute Eosinophil 711-2 143 /ul 024 [facility] [address] [place] [address] 00886 COMPLETE CBC W/ DIFF WBC 52960 Absolute Basophil 704-7 14 /ul 024 [facility] [address] [place] [address] 10626 Direct LDL 24217 LDL-Direct 41891-7 117 mg/dL 024 [facility] [address] [place] [address] 20218 TRIGLYCERIDES 64850 Triglycerides 2571-8 173 mg/dL 024 [facility] [address] [place] [address] 54233 TRIGLYCERIDES 30504 VLDL 69358-3 35 mg/dL 024 [facility] [address] [place] [address] 73790 CHOLESTEROL 09102 Cholesterol 2093-3 177 mg/dL 024 [facility] [address] [place] [address] 02916 CHEM 14 (METABOLIC PANEL) 82761 Glucose 2345-7 138 mg/dL 024 [facility] [address] [place] [address] 80552 CHEM 14 (METABOLIC PANEL) 97927 BUN 3094-0 21 mg/dL 024 [facility] [address] [place] [address] 03381 CHEM 14 (METABOLIC PANEL) 19425 Creatinine 2160-0 0.8 mg/dL 024 [facility] [address] [place] [address] 89211 CHEM 14 (METABOLIC PANEL) 85918 BUN/Creat Ratio 3097-3 25.7 024 [facility] [address] [place] [address] 45031 CHEM 14 (METABOLIC PANEL) 37099 GFR Estimated 18800-2 97 mL/min/1. 73m2 024 [facility] [address] [place] [address] CHEM 14 (METABOLIC PANEL) 13191 Sodium 2951-2 139 mmol/L 024 [facility] [address] [place] [address] 68605 CHEM 14 (METABOLIC PANEL) 36897 Potassium 2823-3 4.0 mmol/L 024 [facility] [address] [place] [address] 96360 CHEM 14 (METABOLIC PANEL) 01648 Chloride 2075-0 98 mmol/L 024 [facility] [address] [place] [address] 13671 CHEM 14 (METABOLIC PANEL) 45639 Total CO2 2028-9 30 mmol/L 024 [facility] [address] [place] [address] 08986 CHEM 14 (METABOLIC PANEL) 84851 Anion Gap 1863-0 15.0 mEq/L 024 [facility] [address] [place] [address] 98309 CHEM 14 (METABOLIC PANEL) 79435 Calculated Serum Osmolality 64174-1 293 mOsm/kg 024 [facility] [address] [place] [address] 89729 CHEM 14 (METABOLIC PANEL) 07516 Albumin 32542-4 3.1 g/dL 024 [facility] [address] [place] [address] 18979 CHEM 14 (METABOLIC PANEL) 88966 Total Protein 2885-2 7.5 g/dL 024 [facility] [address] [place] [address] 71607 CHEM 14 (METABOLIC PANEL) 23242 Globulin 2336-6 4.4 g/dL 024 [facility] [address] [place] [address] 90006 CHEM 14 (METABOLIC PANEL) 93411 Albumin/Globulin Ratio 1759-0 0.7 024 [facility] [address] [place] [address] 05808 CHEM 14 (METABOLIC PANEL) 71220 ALK PHOS 6768-6 66.00 U/L 024 [facility] [address] [place] [address] CHEM 14 (METABOLIC PANEL) 58685 SGOT/AST 1920-8 13 U/L 024 [facility] [address] [place] [address] CHEM 14 (METABOLIC PANEL) 61876 SGPT/ALT 1743-4 19 U/L 024 [facility] [address] [place] [address] CHEM 14 (METABOLIC PANEL) 65000 Total Bilirubin 1975-2 0.3 mg/dL 024 [facility] [address] [place] [address] CHEM 14 (METABOLIC PANEL) 74605 Calcium 24951-0 9.4 mg/dL 024 [facility] [address] [place] [address] CHEM 14 (METABOLIC PANEL) 91253 Corrected Calcium 15181-2 10.3 mg/dL 024 [facility] [address] [place] [address] PTH 45728 PTH 2731-8 21.7 pg/mL 024 [facility] [address] [place] [address] VITAMIN B-12 84391 Vitamin B12 2132-9 609 pg/mL 05/22 024 [facility] [address] [place] [address] 71520 L2P-WGCOFBCHRCUQE IN 4548-4 Glyco HGB A1C 82680-2 7.0 % 024 [facility] [address] [place] [address] 54644 A5R-QAEYRRINJWKCI IN [facility]8-4 eAG 14118-6 154 mg/dL 024 [facility] [address] [place] [address] HDL - CHOL 08580 HDL 2085-9 30 mg/dL 024 [facility] [address] [place] [address] HDL - CHOL 75107 CHD 89609-1 17 % 024 [facility] [address] [place] [address] TSH 03707 TSH 05959-9 2.540 uIU/mL 024 [facility] [address] [place] [address] Procedures Procedure Codes Date Annual Wellness Visit (Initial Visit) CPT-4: G04 38 07/24/2024 FLU VACC CELL CULT PRSV FREE CPT-4: 07823 07/2024 Most recent A1c = 7.0% and < 8.0% CPT-4: 3051F 07/24/2024 FLUCEL VAX PFS VAC NO PRSV 0.5ML IM CPT-4: 08333 07/24/2024 Admin flu virus vaccine CPT-4: G0008 07/24/20 24 LEVEL OF ACTIVITY ASSESS CPT-4: 1003F 024 PT SCRN TBCO ID NON USER CPT-4: G9903 07/15 Current tobacco non-user CPT-4: 1036F 024 Amnt pain noted; none prsnt CPT-4: 1126F 07/15 MED LIST DOCD IN [facility] CPT-4: 1159F 07/24/2024 RVW MEDS BY RX/DR IN [facility] CPT-4: 116F 2023 Patient Screened for Future Fall Risk CPT-4: 110 0F 07/24/2024 Fall plan of care doc'd CPT-4: 0518F 07/24/20 24 Most recent A1c = 7.0% and < 8.0% CPT-4: 305F 06/24/2024 MED LIST DOCD IN [facility] CPT-4: 1159F 06/24/2024 RVW MEDS BY RX/DR IN [facility] CPT-4: 1160F 2023 Discharge Meds Reconciled w/ Current Med list CP T-4: 1111F 06/24/2024 Amnt pain noted; none prsnt CPT-4: 1126F 06/[address] CPT-4: 1159F 05/21/2024 RVW MEDS BY RX/DR IN [facility] CPT-4: 1160F 2023 Discharge Meds Reconciled w/ Current Med list CP T-4: 1111F 05/21/2024 Amnt pain noted; none prsnt CPT-4: 1126F 04/2024 Screening for clinical depre ssion is negative, follow-up plan not required CPT-4: G8510 05/21/2024 Patient Screened for Future Fall Risk CPT-4: 110 0F 05/21/2024 Fall plan of care doc'd CPT-4: 0518F 05/21/20 24 Cologuard CPT-4: 65094 Unknown D1I-Jngoxibqeexzhcs CPT-4: 33304 Unknown Gastroenterology Referral SNOMED CT: 306 200938 CPT-4: R12 Unknown Vital Signs Date Vital 07/24/2024 Blood Pressure 1: 120/82 Code: 8480-6 BMI: 32.3 Code: 22137-5 Heart Rate 1: 81 bpm Height: 6'4 Code: 8302-2 Respiratory Rate: 16 bpm SpO2: 97% Temperature: 36.1 (C) / 97.0 (F) Weight: 265 lbs Code: 76943-2 06/24/2024 Blood Pressure 1: 134/76 Code: 8480-6 BMI: 34.6 Code: 31491-6 Heart Rate 1: 86 bpm Height: 6'4 Code: 8302-2 Respiratory Rate: 17 bpm SpO2: 94% Temperature: 36.4 (C) / 97.6 (F) Weight: 284 lbs Code: 02030-6 05/21/2024 Blood Pressure 1: 135/82 Code: 8480-6 BMI: 32.3 Code: 71639-2 Heart Rate 1: 84 bpm Height: 6'4 Code: 8302-2 Respiratory Rate: 17 bpm SpO2: 93% Temperature: 35.6 (C) / 96.0 (F) Weight: 265 lbs Code: 74332-9 Reason For Visit Reason For Visit Effective [...] Diagnosis: At high risk for falls[ICD10: Z91.81] [facility] Office [address] [place] [address] CPT-4: G0438 4 (11154) Home or Residence Visit Est Pt - [...] ] Diagnosis: [ICD9: ] Diagnosis: [ICD9: ] [facility] Office [address] [place] [address] CPT-4: 00708 4 (12950) Home or Residence Visit Est Pt - Moderate Level, 40 mins Diagnosis: Syncope[ICD10: R55] Diagnosis: Hemiparesis due to recent cerebrovascular accident (CVA)[ICD10: I69.359] Diagnosis: Diabetes mellitus due to underlying condition with diabetic neuropathy, with long-term current use of insulin[ICD10: E08.40] Diagnosis: nursing home (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[ICD10: Z79.4] Diagnosis: Hypertension [...] cancer screening[ICD10: Z12.11] Diagnosis: Paroxysmal cough[ICD10: R05.8] [facility] Office [address] [place] [address] CPT-4: 05484 4 (08476) Home or Residence Visit [place] - Moderate Level, 60 mins Diagnosis: Hemiparesis due to recent cerebrovascular accident (CVA)[ICD10: I69.359] Diagnosis: Gastrostomy present[ICD10: Z93.1] Diagnosis: Diabetes mellitus due to underlying condition with diabetic neuropathy, with long-term current use of insulin[ICD10: E08.40] Diagnosis: 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 On Lantus Z79.4-V58.67 nursing home (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: On Lantus 15 [...] Pepcid 07/24/2024 Appointment: Sean Kyle WPtel: [address] [facility] E034 07/24/2024 Patient Education: Obesity Completed 07/24/2024 [...] insulin: Stable. Hba1c 7.0. On Lantus Z79.4-V58.67 nursing home (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 On Lantus 15 [...] At high risk for falls: at present [facility] bound. On PT/OT for strengthening, balance, coordination Z12.11-V76.51 Colon cancer screening: [place] R05.8-786.2 Paroxysmal cough: poss due to poor pharyngeal reflex, GERD . Try Protonix. Oropharyngeal suctioning. Order Suction Aspirator 06/24/2024 Appointment: Sean Kyle WPtel: [address] [place] [address] E034 06/24/2024 Patient Education: Obesity Completed 06/24/2024 Patient Education: Patient Medication Summary Completed 06/24/2024 Care Plan: [place] Ordered 06/15 Appointment: Oscar Hoyt WPtel: [address] [facility] [address] [id number] [place] Phone Call 06/20/2024 Appointment: Mony Moseley WPtel: [address] [place], [place] [phone] Phone Call 06/06/2024 Appointment: Mony Moseley WPtel: [address] [place], [place] [phone] Phone Call 05/26/2024 Visit Plan: I69.359-438.20 Hemiparesis [...] late effect of cerebrovascular accident (CVA) Z79.4- nursing home (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 I69.322-438.13 Dysarthria as [...] findings 05/21/2024 Appointment: Sean Kyle WPtel: [address] [facility] N034 05/21/2024 Patient Education: Patient Medication Summary Completed 05/21/2024 Patient Education: Obesity Completed 05/21/2024 Referral: [employer] WPtel: [address] [place] [address] [place] Referral faxed to: Agency Name: [employer] Agency Address: [address] [place] [address] Agency Phone #: [phone] Agency Agency will contact the patient to schedule Order Faxed Referral: Pending Medical Records Information [facility] requires Consent when requesting records, there i currently no consent on file for the patient can we get consent uploaded to [facility] so we can finish the request. thank you On Hold Awaiting Documentation Referral: [facility] WPtel: [address] [place], [place] [id number] [facility]- Dr Ruiz [address] [facility], [facility] [address], [place] [address] Reprocess Referral: [facility] WPtel: [address] 05/22/2024 order faxed to agency. Not Taken Up Referral: Residential home health WPtel: [address] [facility] [address] [place], [place] [id number] Referral ACT - Recert Referral: Pending [employer] Referral Information lvm , provided the above agency information. Instructed to call O&R department if they do not hear back from agency withing 7-10 days.05/22/24 no answer, lvm to cb Spoke with office HVS Referral faxed to:[facility] Agency Name: _[facility] [employer] [facility] Address:_ [address], [place] [address] Agency Phone #:_ Agency _ Agency will contact the patient to schedule appointment. Order Faxed Referral: Sean Kyle WPtel: [address] [place] [address] [address] [facility] [place] Agency contacted, confirmed they're accepting new patients. They will run insurance once order is received Referral faxed to: Agency Name: [facility] Agency Address: [address] [facility], [facility] [address], [place] [address] Agency Phone #:[phone] Agency Agency will ship to patient. pt has referral info Order Faxed Referral: Residential home health WPtel: [address] [facility] [address] [place], [place] [address] Referral ACT - Cert Referral: [facility] WPtel: [address] Notes & referral faxed to [facility] [phone] Order Faxed Referral: Pending Incontinence Supplies Order Information called and spoke to Nanette GUADALUPEA an advised contact number given Order Faxed Referral: Sean Kyle WPtel: [address] [facility] 06-24-2024. Called pt. spoke with Jenn Do [...] Jenn agree and never return a call. [employer] Confirmed Referral: Pending DME Order Information [...] insulin: Stable Hba1c 7.0. On Lantus Z79.4-V58.67 nursing home (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: On Lantus 15 [...] placed R05.8-786.2 Paroxysmal cough R26.9-781.2 Gait abnormality: [facility] . On PT progressing J45.909-493.90 [...] insulin: Stable. Hba1c 7.0. On Lantus Z79.4-V58.67 nursing home (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; On Lantus 15 [...] At high risk for falls: at present [facility] bound. On PT/OT for strengthening, [...]
--- OUTSIDE RECORDS SUMMARY | 2024-11-25 23:42 | XMS_ITS | CCD ---
Author Name Saroj DAVIS, Dr Amanda escalona Address [address] [facility] [address] [place] [address] Phone Organization [facility] Phone Care Team Providers Care Arc Welder Apprentice Name Role Phone Unavailable Primary Care Provider Unavailabl e Unavailable Chronic Care Management Unavaila ble Summary Purpose DataExchange Insurance Providers Payer name Policy type / Coverage type Covered constitution party ID Effective Begin Date Effective End Date [place] [id number] Unknown Family history Sister Diagnosis Age At [...] No Inactive Date Active LISINOPRIL angioedema RxNorm: 29485 05/21/2024 No Inactive D ate Active Penicillin [...] disease ICD-10: I11.9 ICD-9: 402.90 07/24/2024 Active 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 (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 ICD-1 0: Z79.4 [...] Syncope ICD-10: R55 ICD-9: 780.2 06/24/2024 Active jail (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 ICD-10: Z79.4 05/21 Active Urinary incontinence ICD-10: R32 ICD-9: 788.30 05/21/2024 Active Medications Medication Codes Instructions Start Date Stop Date Status Fill Instructions ipratropium 0.5 mg-albuterol 3 mg (2.5 mg base)/3 mL nebulization soln RxNorm: 0332463 Inhale 3 Milliliter(s) Inhalation every 6 hours as needed for shortness of breath 4 11/19/19 25 Inactive albuterol sulfate HFA 90 mcg/actuation aerosol inhaler RxNorm: 6488361 Administer 2 Puff(s) Inhalation every 4 to 6 hours 4 12/20/19 25 Active buspirone 5 mg tablet RxNorm: 459351 Take 1 Tablet(s) Oral three times a day 4 10/26/19 25 Inactive Senna Plus 8.6 mg-50 mg tablet RxNorm: 625802 Take 2 Tablet(s) Oral two times a day as needed for constipation 4 07/28/20 24 Inactive multivitamin tablet RxNorm: Take 1 Tablet(s) Oral every day 4 10/20/19 26 Active buspirone 5 mg tablet RxNorm: 741517 Take 1 Tablet(s) Oral two times a day 4 10/16/19 26 Active polyethylene glycol 3350 17 gram/dose oral powder RxNorm: 220763 Use 1 Unit Dose Oral every day Mix 17g (one capful) with 8oz liquid. Hold for loose stools. 4 08/17/20 25 Active ipratropium 0.5 mg-albuterol 3 mg (2.5 mg base)/3 mL nebulization soln RxNorm: 2049710 Administer 3 Milliliter(s) Inhalation every 6 hours as needed for shortness of breath 4 08/22/20 24 Inactive buspirone 5 mg tablet RxNorm: 986184 Take 1 Tablet(s) Oral three times a day 07/23/20 24 Inactive aspirin 81 mg chewable tablet RxNorm: 660825 Take 1 Tablet(s) Feeding Tube / PEG every day 08/13/20 25 Active atorvastatin 40 mg tablet RxNorm: 202378 Take 1 Tablet(s) Feeding Tube / PEG every night at bedtime 08/13/20 25 Active amlodipine 10 mg tablet RxNorm: 350811 Take 1 Tablet(s) Feeding Tube / PEG once daily 08/13/20 25 Active clopidogrel 75 mg tablet RxNorm: 068163 Take 1 Tablet(s) Feeding Tube / PEG once daily 08/13/20 25 Active Pen Needle 31 gauge x 5/16 RxNorm: Take 1 Pen Needle Subcutaneous three times a day 08/13/20 25 Active famotidine 20 mg tablet RxNorm: 800175 Take 1 Tablet(s) Feeding Tube / PEG two times a day 08/13/20 25 Active thiamine HCl (vitamin B1) 100 mg tablet RxNorm: 443545 Take 1 Tablet(s) Feeding Tube / PEG every day 08/13/20 25 Active folic acid 1 mg tablet RxNorm: 876994 Take 1 Tablet(s) Feeding Tube / PEG every day 08/13/20 25 Active multivit-mineral -folic acid 333 mcg-lutein 3 mg-zeaxant 0.67 mg tablet RxNorm: Take 1 Tablet(s) Oral every day 4 No Stop Date Active Lantus Solostar U-100 Insulin 100 unit/mL (3 mL) subcutaneous pen RxNorm: 496726 Administer 15 Unit(s) Subcutaneous every night at bedtime 08/13/20 25 Active loratadine 10 mg tablet RxNorm: 500484 Take 1 Tablet(s) Feeding Tube / PEG every day 08/13/20 25 Active Senna Plus 8.6 mg-50 mg tablet RxNorm: 339422 Take 2 Tablet(s) Feeding Tube / PEG two times a day as needed for constipation 07/29/20 24 Inactive albuterol sulfate HFA 90 mcg/actuation aerosol inhaler RxNorm: 2039565 Administer 2 Puff(s) Inhalation every 4 to 6 hours 4 05/21/20 24 Inactive Medication Administered No Medication Administered data Results Observation Observation Code Item Item Code Result Date Service Location Direct LDL 20905 LDL-Direct 44803-0 117 mg/dL 024 [facility] [address] [place] [address] TRIGLYCERIDES 42351 Triglycerides 2571-8 173 mg/dL 024 [facility] [address] [place] [address] TRIGLYCERIDES 07892 VLDL 63897-4 35 mg/dL 024 [facility] [address] [place] [address] 17937 CHOLESTEROL 52814 Cholesterol 2093-3 177 mg/dL 024 [facility] [address] [place] [address] 29608 VITAMIN B-12 47031 Vitamin B12 2132-9 609 pg/mL 05/22 024 [facility] [address] [place] [address] 40627 [id number] IN [facility]84 Glyco HGB A1C 00735-6 7.0 % 024 [facility] [address] [place] [address] 14561 [id number] IN [facility] eAG 08045-5 154 mg/dL 024 [facility] [address] [place] [address] 42491 TSH 10894 TSH 95993-9 2.540 uIU/mL 024 [facility] [address] [place] [address] 79446 CHEM 14 (METABOLIC PANEL) 21426 Glucose 2345-7 138 mg/dL 024 [facility] [address] [place] [address] 75400 CHEM 14 (METABOLIC PANEL) 20545 BUN 3094-0 21 mg/dL 024 [facility] [address] [place] [address] 13572 CHEM 14 (METABOLIC PANEL) 68079 Creatinine 2160-0 0.8 mg/dL 024 [facility] [address] [place] [address] 25163 CHEM 14 (METABOLIC PANEL) 18806 BUN/Creat Ratio 3097-3 25.7 024 [facility] [address] [place] [address] 64915 CHEM 14 (METABOLIC PANEL) 86110 GFR Estimated 14040-7 97 mL/min/1. 73m2 024 [facility] [address] [place] [address] 10279 CHEM 14 (METABOLIC PANEL) 99345 Sodium 2951-2 139 mmol/L 024 [facility] [address] [place] [address] CHEM 14 (METABOLIC PANEL) 01881 Potassium 2823-3 4.0 mmol/L 024 [facility] [address] [place] [address] 45713 CHEM 14 (METABOLIC PANEL) 48028 Chloride 2075-0 98 mmol/L 024 [facility] [address] [place] [address] 70624 CHEM 14 (METABOLIC PANEL) 69434 Total CO2 2028-9 30 mmol/L 024 [facility] [address] [place] [address] 91345 CHEM 14 (METABOLIC PANEL) 41914 Anion Gap 1863-0 15.0 mEq/L 024 [facility] [address] [place] [address] 57819 CHEM 14 (METABOLIC PANEL) 93996 Calculated Serum Osmolality 83379-9 293 mOsm/kg 024 [facility] [address] [place] [address] 64812 CHEM 14 (METABOLIC PANEL) 31057 Albumin 62087-0 3.1 g/dL 024 [facility] [address] [place] [address] 23099 CHEM 14 (METABOLIC PANEL) 54375 Total Protein 2885-2 7.5 g/dL 024 [facility] [address] [place] [address] 61250 CHEM 14 (METABOLIC PANEL) 88263 Globulin 2336-6 4.4 g/dL 024 [facility] [address] [place] [address] 42973 CHEM 14 (METABOLIC PANEL) 64100 Albumin/Globulin Ratio 1759-0 0.7 024 [facility] [address] [place] [address] 08879 CHEM 14 (METABOLIC PANEL) 37210 ALK PHOS 6768-6 66.00 U/L 024 [facility] [address] [place] [address] 95053 CHEM 14 (METABOLIC PANEL) 66519 SGOT/AST 1920-8 13 U/L 024 [facility] [address] [place] [address] 15022 CHEM 14 (METABOLIC PANEL) 09123 SGPT/ALT 1743-4 19 U/L 024 [facility] [address] [place] [address] CHEM 14 (METABOLIC PANEL) 77726 Total Bilirubin 1975-2 0.3 mg/dL 024 [facility] [address] [place] [address] CHEM 14 (METABOLIC PANEL) 45469 Calcium 78223-7 9.4 mg/dL 024 [facility] [address] [place] [address] CHEM 14 (METABOLIC PANEL) 70372 Corrected Calcium 79286-0 10.3 mg/dL 024 [facility] [address] [place] [address] COMPLETE CBC W/ DIFF WBC 72994 WBC 6690-2 6.8 K/ul 024 [facility] [address] [place] [address] 13717 COMPLETE CBC W/ DIFF WBC 49706 RBC 789-8 3.89 M/uL 024 [facility] [address] [place] [address] 98558 COMPLETE CBC W/ DIFF WBC 32570 Hemoglobin 718-7 10.6 g/dL 024 [facility] [address] [place] [address] 49970 COMPLETE CBC W/ DIFF WBC 66413 Hematocrit 4544-3 32.2 % 024 [facility] [address] [place] [address] 06959 COMPLETE CBC W/ DIFF WBC 90823 MCV 787-2 82.9 fL 024 [facility] [address] [place] [address] 02533 COMPLETE CBC W/ DIFF WBC 81684 MCH 785-6 27.3 pg 024 [facility] [address] [place] [address] 35603 COMPLETE CBC W/ DIFF WBC 71917 MCHC 786-4 32.9 g/dL 024 [facility] [address] [place] [address] 52557 COMPLETE CBC W/ DIFF WBC 15812 RDW 788-0 15.5 % 024 [facility] [address] [place] [address] 34947 COMPLETE CBC W/ DIFF WBC 20406 Platelet Count 777-3 303 K/uL 024 [facility] [address] [place] [address] 53690 COMPLETE CBC W/ DIFF WBC 74466 MPV 72658-7 8.0 fL 024 [facility] [address] [place] [address] 89811 COMPLETE CBC W/ DIFF WBC 01259 Neutrophils % 770-8 51.2 % 024 [facility] [address] [place] [address] 91133 COMPLETE CBC W/ DIFF WBC 14853 Lymphocytes % 736-9 39.8 % 024 [facility] [address] [place] [address] 08181 COMPLETE CBC W/ DIFF WBC 33336 Monocytes % 5905-5 6.7 % 024 [facility] [address] [place] [address] 93040 COMPLETE CBC W/ DIFF WBC 22391 Eosinophils % 713-8 2.1 % 024 [facility] [address] [place] [address] 02836 COMPLETE CBC W/ DIFF WBC 89480 Basophils% 706-2 0.2 % 024 [facility] [address] [place] [address] 82028 COMPLETE CBC W/ DIFF WBC 93172 Absolute Neutrophil 751-8 3482 /ul 024 [facility] [address] [place] [address] 08388 COMPLETE CBC W/ DIFF WBC 93627 Absolute Lymphocyte 90296-6 2706 /ul 024 [facility] [address] [place] [address] 05481 COMPLETE CBC W/ DIFF WBC 20989 Absolute Monocyte 742-7 456 /ul 024 [facility] [address] [place] [address] 65889 COMPLETE CBC W/ DIFF WBC 48595 Absolute Eosinophil 711-2 143 /ul 024 [facility] [address] [place] [address] 38170 COMPLETE CBC W/ DIFF WBC 25336 Absolute Basophil 704-7 14 /ul 024 [facility] [address] [place] [address] 00065 HDL - CHOL 63071 HDL 2085-9 30 mg/dL 024 [facility] [address] [place] [address] 51905 HDL - CHOL 88867 CHD 11211-4 17 % 0[address] [facility] [address] [place] [address] 13825 PTH 64003 PTH 2731-8 21.7 pg/mL 024 [facility] [address] [place] [address] 98280 Procedures Procedure Codes Date Annual Wellness Visit (Initial Visit) CPT-4: G04 38 07/24/2024 FLU VACC CELL CULT PRSV FREE CPT-4: 36570 07/2024 Most recent A1c = 7.0% and < 8.0% CPT-4: 3051F 07/24/2024 FLUCEL VAX PFS VAC NO PRSV 0.5ML IM CPT-4: 40978 07/24/2024 Admin flu virus vaccine CPT-4: G0008 07/24/20 24 LEVEL OF ACTIVITY ASSESS CPT-4: 1003F 024 PT SCRN TBCO ID NON USER CPT-4: G9903 07/15 Current tobacco non-user CPT-4: 1036F 024 Amnt pain noted; none prsnt CPT-4: 1126F 07/15 MED LIST DOCD IN [facility] CPT-4: 1159F 07/24/2024 RVW MEDS BY RX/DR IN [facility] CPT-4: 116F 2023 Patient Screened for Future Fall Risk CPT-4: 110 0F 07/24/2024 Fall plan of care doc'd CPT-4: 0518F 07/24/20 24 Most recent A1c = 7.0% and < 8.0% CPT-4: 305F 06/24/2024 MED LIST DOCD IN [facility] CPT-4: 1159F 06/24/2024 RVW MEDS BY RX/DR IN [facility] CPT-4: 1160F 2023 Discharge Meds Reconciled w/ Current Med list CP T-4: 1111F 06/24/2024 Amnt pain noted; none prsnt CPT-4: 1126F 06/[address] CPT-4: 1159F 05/21/2024 RVW MEDS BY RX/DR IN [facility] CPT-4: 1160F 2023 Discharge Meds Reconciled w/ Current Med list CP T-4: 1111F 05/21/2024 Amnt pain noted; none prsnt CPT-4: 1126F 04/2024 Screening for clinical depre ssion is negative, follow-up plan not required CPT-4: G8510 05/21/2024 Patient Screened for Future Fall Risk CPT-4: 110 0F 05/21/2024 Fall plan of care doc'd CPT-4: 0518F 05/21/20 24 Cologuard CPT-4: 48590 Unknown [id number] CPT-4: 14122 Unknown Gastroenterology Referral SNOMED CT: 306 [id number] CPT-4: R12 Unknown Vital Signs Date Vital 07/24/2024 Blood Pressure 1: 120/82 Code: 8480-6 BMI: 32.3 Code: 81688-7 Heart Rate 1: 81 bpm Height: 6'4 Code: 8302-2 Respiratory Rate: 16 bpm SpO2: 97% Temperature: 36.1 (C) / 97.0 (F) Weight: 265 lbs Code: 89900-8 06/24/2024 Blood Pressure 1: 134/76 Code: 8480-6 BMI: 34.6 Code: 58312-1 Heart Rate 1: 86 bpm Height: 6'4 Code: 8302-2 Respiratory Rate: 17 bpm SpO2: 94% Temperature: 36.4 (C) / 97.6 (F) Weight: 284 lbs Code: 31921-2 05/21/2024 Blood Pressure 1: 135/82 Code: 8480-6 BMI: 32.3 Code: 09620-0 Heart Rate 1: 84 bpm Height: 6'4 Code: 8302-2 Respiratory Rate: 17 bpm SpO2: 93% Temperature: 35.6 (C) / 96.0 (F) Weight: 265 lbs Code: 65215-5 Reason For Visit Reason For Visit Effective [...] disease)[ICD10: K21.9] Diagnosis: Gastrostomy present[ICD10: Z93.1] 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: 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 (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[ICD10: Z79.4] Diagnosis: At high risk for falls[ICD10: Z91.81] [facility] [address] [place] [address] CPT-4: G0438 4 (94964) Home or Residence Visit Est Pt - [...] Diagnosis: [ICD9: ] Diagnosis: [ICD9: ] [facility] [address] [place] [address] CPT-4: 53571 4 (05598) Home or Residence Visit Est Pt - Moderate Level, 40 mins Diagnosis: Syncope[ICD10: R55] Diagnosis: Hemiparesis due to recent cerebrovascular accident (CVA)[ICD10: I69.359] Diagnosis: Diabetes mellitus due to underlying condition with diabetic neuropathy, with long-term current use of insulin[ICD10: E08.40] Diagnosis: jail (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[ICD10: Z79.4] Diagnosis: Hypertension [...] cancer screening[ICD10: Z12.11] Diagnosis: Paroxysmal cough[ICD10: R05.8] [facility] [address] [place] [address] CPT-4: 75070 4 (94689) 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 On Lantus Z79.4-V58.67 jail (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: On Lantus 15 [...] Pepcid 07/24/2024 Appointment: Sean Kyle WPtel: [address] [facility] E034 07/24/2024 Patient Education: Obesity Completed [...] insulin: Stable. Hba1c 7.0. On Lantus Z79.4-V58.67 jail (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 On Lantus 15 [...] At high risk for falls: at present [facility] bound. On PT/OT for strengthening, balance, coordination Z12.11-V76.51 Colon cancer screening: [place] R05.8-786.2 Paroxysmal cough: poss due to poor pharyngeal reflex, GERD . Try Protonix. Oropharyngeal suctioning. Order Suction Aspirator 06/24/2024 Appointment: Sean Kyle WPtel: [address] [place] [address] E034 06/24/2024 Patient Education: Obesity Completed 06/24/2024 Patient Education: Patient Medication Summary Completed 06/24/2024 Care Plan: [place] Ordered 06/15 Appointment: Oscar Hoyt WPtel: [address] [facility] [address] [id number] [place] Phone Call 06/20/2024 Appointment: Mony Moseley WPtel: [address] [place], [place] [phone] Phone Call 06/06/2024 Appointment: Mony Moseley WPtel: [address] [place], [place] [phone] Phone Call 05/26/2024 Visit Plan: I69.359-438.20 Hemiparesis [...] late effect of cerebrovascular accident (CVA) Z79.4- jail (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 I69.322-438.13 Dysarthria as [...] findings 05/21/2024 Appointment: Sean Kyle WPtel: [address] [facility] N034 05/21/2024 Patient Education: Patient Medication Summary Completed 05/21/2024 Patient Education: Obesity Completed 05/21/2024 Referral: [facility] WPtel: [address] [place] [address] [place] Referral faxed to: Agency Name: [facility] Agency Address: [address] [place] [address] Agency Phone #: [phone] Agency Agency will contact the patient to schedule Order Faxed Referral: Pending Medical Records Information [facility] requires Consent when requesting records, there i currently no consent on file for the patient can we get consent uploaded to [facility] so we can finish the request. thank you On Hold Awaiting Documentation Referral: [facility] WPtel: [address] [place], [place] [id number] Formerly [facility]- Dr Ruiz [address] [facility], [facility] [address], [place] [address] Reprocess Referral: [facility] WPtel: [address] 05/22/2024 order faxed to agency. Not Taken Up Referral: [facility] WPtel: [address] [facility] [address] [place], [place] [id number] Referral ACT - Recert Referral: Pending Solids Control Technician Referral Information lvm , provided the above agency information. Instructed to call O&R department if they do not hear back from agency withing 7-10 days.05/22/24 no answer, lvm to cb Spoke with office HVS Referral faxed to:[employer] Agency Name: _[facility] Address:_ [address], [place] [address] Agency Phone #:_ Agency _ Agency will contact the patient to schedule appointment. Order Faxed Referral: Sean Kyle WPtel: [address] [place] [address] [address] [facility] [place] Agency contacted, confirmed they're accepting new patients. They will run insurance once order is received Referral faxed to: Agency Name: [facility] Agency Address: [address] [facility], [facility] [address] [address] Agency Phone #:[phone] Agency Agency will ship to patient. pt has referral info Order Faxed Referral: [facility] home [facility] WPtel: [address] [facility] [address] [place], [place] [phone] Referral ACT - Cert Referral: [facility] WPtel: [address] Notes & referral faxed to [facility] [phone] Order Faxed Referral: Pending Incontinence Supplies Order Information called and spoke to Nanette GUADALUPEA an advised contact number given Order Faxed Referral: Sean Kyle WPtel: [address] [facility] 06-24-2024. Called pt. spoke with Jenn [...] Jenn agree and never return a call. [facility] Confirmed Referral: Pending DME Order Information [...] insulin: Stable Hba1c 7.0. On Lantus Z79.4-V58.67 jail (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: On Lantus 15 [...] placed R05.8-786.2 Paroxysmal cough R26.9-781.2 Gait abnormality: [facility] . On PT progressing J45.909-493.90 [...] insulin: Stable. Hba1c 7.0. On Lantus Z79.4-V58.67 jail (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; On Lantus 15 [...] At high risk for falls: at present [facility] bound. On PT/OT for strengthening, balance, [...] late effect of cerebrovascular accident (CVA) Z79.4- 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 (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 I69.322-438.13 Dysarthria as [...]
--- OUTSIDE RECORDS SUMMARY | 2024-11-25 23:42 | XMS_ITS | Encounter Summary ---
Author Organization [facility] Address [address] [facility] [place] [address] Care Team Providers Care King Maker Name Role Phone Lisy Olmedo MD Primary Care Provide r Sylvain Daniels MD Primary Care Provider + [phone] None, Physician Primary Care Provider Unavailabl e Sylvain Daniels MD Unavailable [phone] Sylvain Daniels MD Unavailable [phone] Sylvain Daniels MD Unavailable [phone] Sylvain Daniels MD Primary Care Provider + [phone] Kiana Cole MD Primary Care Provider Sean Kyle MD Primary Care Provider [phone] Kiana Cole MD Primary Care Provider Reason for Visit * Reason Onset Date Comments MEDICATION REFILL 11/19/2021 Encounter Details Date Type Department Care Team (Late st Contact Info) Description 11/19/2021 Refill [facility] [address] [facility] [address] [place] [address] Lisy Olmedo MD [address] [place] [address] MEDICATION REFILL Social History Tobacco Use Types [...] serious difficulty walking/climbing stairs? Yes-post [facility]; needs rehab to build activity level. 01/30/2018 [...] 50 years ago ??? Penicillin V Rash NURSE documented in this encounter Plan of Treatment Upcoming Encounters Date Type Department Care Team (Late st Contact Info) Description 11/28/2024 9:00 AM BURN NURSE Office Visit [facility] - Neurology [address] [facility], [facility] [place] [address] Aline Finch MD [address] [place] [address] 02/10/2025 10:00 AM CDT Office Visit [facility] - Cardiology [address] [place] [address] Curly Lay MD [address] [place] [address] documented as of this encounter Visit Diagnoses Diagnosis Erectile dysfunction, unspecified erectile dysfunction type documented in this encounter Additional Health Concerns Infection Onset Date Last Indicated Resolved Time COVID-19 Under Investigation 07/26/2022 07/26/2022 07/26/2022 5:54 PM CDT COVID-19 Under Investigation 04/10/2024 04/10/2024 04/10/2024 2:48 PM CDT documented as of this encounter Care Teams King Maker Relationship Specialty Start Date End Date Lisy Olmedo MD PCP - General 04/20/09 05/09/22 Sylvain Daniels MD PCP - General Family Medicine 05/10/22 02/14/24 None, Physician [address] [place] [address] PCP - General 02/15/24 05/16/24 Sylvain Daniels MD [address] [place] [address] PCP - Attributed-[employer] 05/15/22 10/01/22 Sylvain Daniels MD [address] [place] [address] PCP - Attributed-[employer] ST 02/12/23 04/01/23 Sylvain Daniels MD [address] [place] [address] PCP - General Family Medicine 05/17/24 05/19/24 Kiana Cole MD [address] [place] [address] PCP - General Internal Medicine 05/22/24 08/04/24 Sean Kyle MD [address] [place] [address] PCP - General Internal Medicine 08/05/24 09/15/24 Kiana Cole MD [address] [place] [address] PCP - General Internal Medicine 09/16/24 Sylvain Daniels MD Family Medicine 02/15/24 documented as of this encounter
--- OUTSIDE RECORDS SUMMARY | 2024-11-25 23:42 | XMS_ITS | Encounter Summary ---
Author Organization [facility] Address [address] [place] [address] Care Team Providers Care Piano Case Maker Name Role Phone Lisy Olmedo MD Primary Care Provide r Sylvain Daniels MD Primary Care Provider + [phone] None, Physician Primary Care Provider Unavailabl e Sylvain Daniels MD Unavailable [phone] Sylvain Daniels MD Unavailable [phone] Sylvain Daniels MD Unavailable [phone] Sylvain Daniels MD Primary Care Provider + [phone] Kiana Cole MD Primary Care Provider Sean Kyle MD Primary Care Provider [phone] Kiana Cole MD Primary Care Provider Reason for Visit * Reason Onset Date Comments MEDICATION REFILL 05/13/2021 Encounter Details Date Type Department Care Team (Late st Contact Info) Description 05/13/2021 Refill [facility] Medicine [address] [facility] [address] [place] [address] Lisy Olmedo MD [address] [place] [phone] MEDICATION REFILL Social History Tobacco Use Types [...] st Contact Info) Description 11/28/2024 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 Office Visit [facility] - Neurology [address] [place] [address] Aline Finch MD [address] [place] [address] 02/10/2025 10:00 AM CDT Office Visit [facility] - Cardiology [address] [address] Curly Lay MD [address] [address] documented as of this encounter Visit Diagnoses [...] documented as of this encounter Care Teams Piano Case Maker Relationship Specialty Start Date End Date Lisy Olmedo MD PCP - General 04/20/09 05/09/22 Sylvain Daniels MD PCP - General Family Medicine 05/10/22 02/14/24 [facility], Physician [address] [place] [id number] PCP - General 02/15/24 05/16/24 Sylvain Daniels MD [address] [place] [address] PCP - Attributed-[employer] Commercial 05/15/22 10/01/22 Sylvain Daniels MD [address] [place] [address] PCP - Attributed-[employer] ST 02/12/23 04/01/23 Sylvain Daniels MD [address] [place] [address] PCP - General Family Medicine 05/17/24 05/19/24 Kiana Cole MD [address] [place] [address] PCP - General Internal Medicine 05/22/24 08/04/24 Sean Kyle MD [address] [place] [address] PCP - General Internal Medicine 08/05/24 09/15/24 Kiana Cole MD [address] [place] [address] PCP - General Internal Medicine 09/16/24 Sylvain Daniels MD Family Medicine 02/15/24 documented as of this encounter
--- OUTSIDE RECORDS SUMMARY | 2024-11-25 23:42 | XMS_ITS | Clinical Summary ---
Author Organization [facility] Address [address] [place] [address] Care Team Providers Care Tow Feeder Name Role Phone Sean Kyle MD Primary Care Provider [phone] Allergies Active Allergy Reactions Criticality Noted Date [...] Date Confusion 05/25/2024 Near syncope 05/22/2024 Asthma ([facility] 05/22/2024 Dysphagia following cerebral infarction 03/19/20 24 Cerebrovascular accident ([facility] 03/12 Staphylococcus aureus infection 02/08/2024 Hyperlipidemia 08/05/2020 [...] LDL-C. Mika EATON et al. RAFFI. 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 copper asked him to stop naproxen Atherosclerosis of coronary artery 01/23/2018 Overview (05/22/2024): Last Assessment & Plan: without angina needs more aggressive RFM continue aspirin Controlled type 2 diabetes francisco carney without complication, without long-term current use of insulin ([facility]) 09/28/2011 Resolved Problems Problem Noted Date Diagnosed [...] History of ETOH use prior to stroke [facility] Utilities Answer Date Recorded In the past 12 months has [employer], [employer], oil, or water [employer] threatened to shut off services in your [...] any time in the past 12 m [facility], were you homeless or living in a correction (including now)? Patient unable to answer 05/23/2024 [...] 7.4(H) <5.7 % 05/23/2024 1:29 AM CDT [facility] Comment: ADA GUIDELINES 2010 5.7 TO 6.4% INCREASED RISK OF DIABETES > OR = 6.5% CONSISTENT WITH DIABETES ESTIMATED AVG GLUCOSE 166 mg/dL 05/23/2024 1:29 AM CDT [facility] 05/22/2024 6:25 PM CDT Yaritza Cowart NP LABORATORY Final Result [facility] [address] [place] [address], from Last 3 Months or Most Recently Relevant to Health Maintenance Insurance MEDICARE Advance Directives * Full Code (Latest Code Status on File) Date Activated Date Inactivated Comments 05/22/2024 11:15 PM 05/25/2024 9:20 PM Care Teams Tow Feeder Relationship Specialty Start Date End Date Sean Kyle MD [address] [place] [id number] PCP - General INTERNAL MEDICINE 05/22/24
--- OUTSIDE RECORDS SUMMARY | 2024-11-25 23:42 | XMS_ITS | Encounter Summary ---
Author Organization [facility] Address [address] [facility] [place] [address] Care Team Providers Care Superintendent Of Schools Name Role Phone Lisy Olmedo MD Primary Care Provide r Sylvain Daniels MD Primary Care Provider + [phone] None, Physician Primary Care Provider Unavailabl e Sylvain Daniels MD Unavailable [phone] Sylvain Daniels MD Unavailable [phone] Sylvain Daniels MD Unavailable [phone] Sylvain Daniels MD Primary Care Provider + [phone] Kiana Cole MD Primary Care Provider Sean Kyle MD Primary Care Provider [phone] Kiana Cole MD Primary Care Provider Reason for Visit * Reason Onset Date Comments MEDICATION REFILL 12/27/2020 Encounter Details Date Type Department Care Team (Late st Contact Info) Description 12/27/2020 Refill [facility] Medicine [address] 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 Office Visit [facility] - Neurology [address] [facility] [place] [address] Aline Ficnh MD [address] [place] [address] 02/10/2025 10:00 AM CDT Office Visit [facility] - Cardiology [address] [facility] [address] [place] [address] Curly Lay MD [address] [place] [phone] documented as of this encounter Visit Diagnoses Diagnosis Essential hypertension 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 (HCC) Type 2 [...] documented as of this encounter Care Teams Superintendent Of Schools Relationship Specialty Start Date End Date Lisy Olmedo MD PCP - General 04/20/09 05/09/22 Sylvain Daniels MD PCP - General Family Medicine 05/10/22 02/14/24 None, Physician [address] [place] [address] PCP - General 02/15/24 05/16/24 Sylvain Daniels MD [address] [place] [address] PCP - Attributed-[employer] Commercial 05/15/22 10/01/22 Sylvain Daniels MD [address] [place] [address] PCP - Attributed-[employer] Commercial ST[facility] 02/12/23 04/01/23 Sylvain Daniels MD [address] [place] [address] PCP - General Family Medicine 05/17/24 05/19/24 Kiana Cole MD [address] [place] [address] PCP - General Internal Medicine 05/22/24 08/04/24 Sean Kyle MD [address] [place] [phone] PCP - General Internal Medicine 08/05/24 09/15/24 Kiana Cole MD [address] [place] [address] PCP - General Internal Medicine 09/16/24 Sylvain Daniels MD Family Medicine 02/15/24 documented as of this encounter
--- OUTSIDE RECORDS SUMMARY | 2024-11-25 23:43 | XMS_ITS | Patient Health Summary ---
Author Organization [facility] Address [address] [place] [address] Care Team Providers Care Sound Controller Name Role Phone Sylvain Daniels MD Unavailable [phone] Kiana Cole MD Primary Care Provider Note from [facility],non-owned Affiliates and Associated Physician Practices is amultiple site organization consisting of ambulatory clinics and hospital sitesin [place], [place]. This disclosure is being madepursuant to the Care Everywhere program and may not contain all information available regarding this patient. Last updated 18.[facility] Allergies * Lisinopril(Angioedema) -High Criticality * Lisinopril(Other,Urticaria) [...] with long-term current use of insulin 05/21/2024 group home (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 05/21/2024 GERD [...] slept in a alf (including now)? No 05/26/2024 Education Answer Date [...] Comments Blood Pressure 124/83 09/17/2024 8:17 AM STREETCAR OPERATOR Pulse 101 09/17/2024 8:17 AM STREETCAR OPERATOR Temperature 35.8 C (96.5 F) 09/17/2024 8:17 AM STREETCAR OPERATOR Respiratory Rate 10 08/29/2024 8:44 AM STREETCAR OPERATOR Oxygen Saturation 96% 09/17/2024 8:17 AM STREETCAR OPERATOR Inhaled Oxygen Concentration 21% 02/15/2024 3 :17 PM CDT Weight 120.2 kg (265 lb) 09/17/2024 8:17 AM STREETCAR OPERATOR Height 193 cm (6' 4 ) 09/17/2024 8:17 AM STREETCAR OPERATOR Body Mass Index 32.26 09/17/2024 8:17 AM STREETCAR OPERATOR Procedures * HEMOGLOBIN A1C - POINT OF [...] * CT HEAD WO CONTRAST(Performed 03/19/2024) * AL EGD FLEX TRANSORAL W PLCMT GTUBE PERC(Performed [...] GLUCOSE - POINT OF CARE(Performed 01/30/2024) * AL EGD FLEX TRANSORAL W PLCMT GTUBE PERC(Performed [...] long-term current use of insulin ([facility]) * HEMOGLOBIN A1C - POINT OF CARE (AMB)(Performed 10/18/2022) Performed for Controlled type 2 diabetes mellitus without complication, without long-term current use of insulin ([facility]) * EKG 12-LEAD(Performed 10/18/2022) Performed for 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 ([facility]), S/P CABG x 3 * HEMOGLOBIN A1C - POINT OF CARE (AMB)(Performed 08/03/2022) Performed for Type 2 diabetes mellitus with other circulatory complication, without long-term current use of insulin ([facility]) * GLUCOSE - POINT OF CARE(Performed [...] artery disease 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 (HCC), Essential hypertension, [...] long-term current use of insulin ([facility]) * CBC W AUTO DIFFERENTIAL(Performed 12/24/2019) Performed for Fatigue, unspecified type * COMPREHENSIVE METABOLIC PANEL(Performed 12/24/2019) Performed for Essential hypertension * IMAGING/RADIOLOGY/XRAY RESULTS ORDER(Performed 12/24/2019) * HEMOGLOBIN A1C - POINT OF CARE (AMB) [facility](Performed 11/17/2019) Performed for Type 2 diabetes mellitus with other circulatory complication, without long-term current use of insulin ([facility]) * CT ANGIO AORTIC ROOT(Performed 02/11/2019) Performed for 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 ([facility]), Essential hypertension, Coronary artery disease involving [place] coronary artery of [place] heart with angina pectoris ([facility]), Type 2 diabetes mellitus with other circulatory complication, without long-term current use of insulin ([facility]), S/P CABG x 3, Hypertension, unspecified type, Aortic dilatation ([facility]) * CREATININE BLOOD - POCT (IP) [facility](Performed 02/11/2019) Performed for 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 ([facility]) * HEMOGLOBIN A1C - POINT OF CARE (AMB) [facility](Performed 01/23/2019) Performed for Controlled type 2 diabetes mellitus without complication, without long-term current use of insulin ([facility]) * MICROALB/CREAT RATIO URINE RANDOM PANEL(Performed [...] artery disease 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 (HCC), S/P CABG [...] artery disease 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 (HCC), Hypertension, unspecified [...] artery disease 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 (HCC) * GLUCOSE [...] POINT OF CARE (AMB) [facility](Performed 02/29/2012) * AL EGD FLEX TRANSORAL W PLCMT GTUBE PERC Results * (ABNORMAL) HEMOGLOBIN A1C - POINT OF CARE (AMB) [facility] (09/17/2024 9:38 AM STREETCAR OPERATOR) Hemoglobin A1c POCT 6.2(A) 4.2 - 5.8 % QC Verified Yes Yes Blood BLOOD SPECIMEN / Unknown 09/17/2024 9:38 AM STREETCAR OPERATOR Kiana Cole MD LAB - POINT OF [...] resultswithin the time period is included. Pathologist [facility] Glucose WB/POC 120(H) 70 - 115 mg/dL 06/04/2024 7:23 PM CDT [facility] Specimen Type Cap Fingerstick 2023 7:23 PM CDT [facility] Blood BLOOD SPECIMEN / Unknown 06/04/2024 4:42 PM CDT 06/04/2024 7:23 PM CDT Farhat Enamorado MD LAB - POINT OF CARE ORDERABLES Performing Organization Address City/State/[facility] Co de Phone Number [facility] [address] [place] [phone], [facility] [phone] * (ABNORMAL) CBC W/O DIFFERENTIAL (06/04/2024 11:30 AM CDT) Only the most recent of27 resultswithin the time period is included. Pathologist [facility] WBC 7.7 4.0 - 10.7 x10E9/L 06/04/2024 11:57 AM CDT [facility] RBC Count 4.14(L) 4.30 - 5.80 x10E12/L 06/04/2024 11:57 AM [facility] Hemoglobin 10.9(L) 13.3 - 17.5 g/dL 06/04/2024 11:57 AM [facility] Hematocrit 34.3(L) 38.7 - 51.1 % 06/04/2024 11:57 AM [facility] MCV 82.9 80.0 - 98.0 fL 06/04/2024 11:57 AM [facility] MCH 26.3(L) 26.7 - 33.6 pg 06/04/2024 11:57 AM [facility] MCHC 31.8 31.7 - 36.3 g/dL 06/04/2024 11:57 AM [facility] RDW-CV 14.8 11.3 - 14.8 % 06/04/2024 11:57 AM [facility] Platelet Count 292 150 - 420 x10E9/L 06/04/2024 11:57 AM [facility] MPV 9.4 7.8 - 11.4 fL 06/04/2024 11:57 AM [facility] Blood BLOOD SPECIMEN / Unknown Lab Venipuncture / Unknown 06/04/2024 11:30 AM CDT 06/04/2024 11:51 AM CDT Jason Coppola MD LAB - HEMATOLOGY ORD ERABLES [facility] [address] [place] [phone], [facility] [phone] * (ABNORMAL) BASIC METABOLIC PANEL (CALCIUM TOTAL) (06/04/2024 11:30 AM CDT) Only the most recent of54 resultswithin the time period is included. BUN 18 7 - 26 mg/dL 06/04/2024 12:27 PM [facility] Creatinine 0.78 0.71 - 1.16 mg/dL 06/04/2024 12:27 PM [facility] Sodium 135(L) 136 - 145 mmol/L 06/04/2024 12:27 PM [facility] Potassium 4.1 3.5 - 4.5 mmol/L 06/04/2024 12:27 PM [facility] Chloride 102 98 - 107 mmol/L 06/04/2024 12:27 PM [facility] CO2 25 22 - 29 mmol/L 06/04/2024 12:27 PM [facility] Glucose 138(H) 70 - 115 mg/dL 06/04/2024 12:27 PM [facility] Calcium 9.6 8.4 - 10.2 mg/dL 06/04/2024 12:27 PM [facility] Anion Gap 8 6 - 16 06/04/2024 12:27 PM [facility] BUN/Creatinine Ratio 23 7 - 23 06/04/2024 12:27 PM [facility] Osmolality Calculated 284 275 - 295 mOsm/kg 06/04/2024 12:27 PM [facility] eGFR by CKD-EPI >90 >=90 mL/min/1.7 3 m2 06/04/2024 12:27 PM [facility] Blood BLOOD SPECIMEN / Unknown Lab Venipuncture / Unknown 06/04/2024 11:30 AM CDT 06/04/2024 11:51 AM CDT Jason Coppola MD LAB - CHEMISTRY ORDAnirudh RAZO [address] [address], [facility] [phone] * PHOSPHORUS BLOOD (06/04/2024 11:30 AM CDT) Only the most recent of48 resultswithin the time period is included. Phosphorus 4.3 2.8 - 5.1 mg/dL 06/04/2024 12:27 PM T [facility] Blood BLOOD SPECIMEN / Unknown Lab Venipuncture / Unknown 06/04/2024 11:30 AM CDT 06/04/2024 11:51 AM CDT Jason Coppola MD LAB - CHEMISTRY CHRISTIAN RAZO [address] [address], [facility] [phone] * MAGNESIUM BLOOD (06/04/2024 11:30 AM CDT) Only the most recent of54 resultswithin the time period is included. Pathologist [facility] Magnesium 1.6 1.6 - 2.6 mg/dL 06/04/2024 12:27 PM CDT [facility] Blood BLOOD SPECIMEN / Unknown Lab Venipuncture / Unknown 06/04/2024 11:30 AM CDT 06/04/2024 11:51 AM CDT Jason Coppola MD LAB - CHEMISTRY SARAHE DUNG [facility] [address] [place] [address], [facility] [phone] * ECHO COMPLETE W CONTRAST W BUBBLE STUDY (06/03/2024 3:15 PM CDT) Only the most recent of2 resultswithin the time period is included. Pathologist [facility] [place] vol index 0.013 l/m [facility] CV [...] 1:14 PM Patient Status: I/P Study Site: [facility] Primary Location: [facility] Technical Quality: Adequate Exam Type: ECHO [...] Provider: Perfecto Hatch Attending Physician: Perfecto Hatch [employer] Agent: Isabella Cisneros Left Ventricle Left ventricular systolic [...] 1:14 PM Patient Status: I/P Study Site: [facility] Primary Location: [facility] EStud Info Technical Quality: Adequate Exam Type: [...] Provider: Perfecto Hatch Attending Physician: Perfecto Hatch [employer] Agent: Isabella Cisneros Left Ventricle Left ventricular systolic [...] [place] on 06/03/2024 04:03 PM Perfecto Hatch INFORMATION RESOURCES MANAGER[employer] ECHO C[employer]ID * [place] SWALLOWING FUNCTION STUDY [...] of3 resultswithin the time period is included. [facility] TSH 2.381 0.350 - 4.940 uIU/mL 05/30/2024 11:01 AM CDT [facility] Blood BLOOD SPECIMEN / Unknown Lab Venipuncture / Unknown 05/30/2024 4:32 AM CDT 05/30/2024 5:01 AM CDT Jason Coppola MD LAB - CHEMISTRY CHRISTIAN RAZO [address] [address], [facility] [phone] * EKG 12-LEAD (05/29/2024 8:41 AM CDT) Only the most recent of8 resultswithin the time period is included. [facility] Ventricular Rate 75 BPM [facility] MUSE Atrial Rate 75 BPM [facility] MUSE P-R Interval 132 ms [facility] QRS Duration ms 92 ms [facility] MUSE Q-T Interval ms 416 ms [facility] MUSE QTC Calculation (Bezet) 464 ms [facility] MUSE Calculated P [place] 45 degrees [facility] MUSE Calculated R [place] 37 degrees [facility] MUSE Calculated T [place] -90 degrees [facility] MUSE Interpretation EKG SINUS RHYTHM WITH PREMATURE VENTRICULAR COMPLEXES ST & T WAVE ABNORMALITY, CONSIDER INFERIOR ISCHEMIA ABNORMAL ECG NO PREVIOUS ECGS AVAILABLE Confirmed by PATI DAVIS, ORALIAMAILE ([id number]) on 06/18/2024 10:09:45 PM [facility] MUSE 05/29/2024 8:41 AM CDT 06/18/2024 10:09 PM CDT Ruslan Garza MD ECG ORDERABLES [facility] MUSE * CT Angio Brain Neck Stroke [...] is dictated by Nasreen Gomez MD (radiology orderly) I, Christy Iverson MD have personally reviewed and interpreted this examination/study. > Interpreting Provider: Christy Iverson MD on 05/29/2024 10:01 AM Narrative 05/29/2024 10:01 AM CDT PROCEDURE: CT ANGIO BRAIN NECK STROKE, DATE/TIME OF EXAM: 05/29/2024 1:30 AM, LOCATION [facility] INDICATION: I63.9: Cerebrovascular accident (CVA), unspecified [...] DATE/TIME OF EXAM: 41:30 AM, LOCATION [facility] INDICATION: I63.9: Cerebrovascular accident (CVA), unspecified [...] is dictated by Nasreen Gomez MD (radiology orderly) I, Christy Iverson MD have personally reviewed and interpreted this examination/study. > Interpreting Provider: Christy Iverson MD on 05/29/2024 10:01 AM Madhu Rose MD CT ORDERABLES * CREATININE - POCT INTERFACED (05/29/2024 12:42 AM CDT) Only the most recent of2 resultswithin the time period is included. Creatinine POCT 0.76 0.30 - 1.30 mg/dL 05/29/2024 12:43 AM CDT [facility] Comment:CT range acceptable eGFR >90 >=90 mL/min/1.7 3 m2 05/29/2024 12:43 AM CDT [facility] Blood BLOOD SPECIMEN / Unknown 05/29/2024 12:42 AM CDT 05/29/2024 12:43 AM CDT Jason Coppola MD LAB - POINT OF CARE ORDERABLES [address] [address], [facility] [phone] * INR WHOLE BLOOD - POINT OF CARE (IP) STROKE (05/29/2024 12:41 AM CDT) INR 1.1 0.9 - 1.2 05/29/2024 12:43 AM CDT [facility] Device [id number] 05/29/2024 12:43 AM CDT [facility] [employer] [place] [id number] 05/29/2024 12:43 AM CDT [facility] Blood BLOOD SPECIMEN / Unknown 05/29/2024 12:41 AM CDT 05/29/2024 12:43 AM CDT Jason Coppola MD LAB - POINT OF CARE ORDERABLES [facility] [place] [address], [facility] [phone] * CT Brain Stroke (05/29/2024 12:34 AM CDT) Only the most recent of2 resultswithin the time period is included. Anatomical Region Laterality Modality Head Computed Tomogra phy 05/29/2024 9:39 AM CDT Impressions 05/29/2024 9:43 AM CDT IMPRESSION: 1. No acute intracranial process. A preliminary report was provided to the clinical team by Nehemias Lino M.D of [facility] at 12:36 AM on 05/29/2024. > Interpreting Provider: Christy Iverson MD on 05/29/2024 9:43 AM Narrative 05/29/2024 9:43 AM CDT PROCEDURE: CT BRAIN STROKE, DATE/TIME OF EXAM: 05/29/2024 12:40 AM, LOCATION [facility] INDICATION: I63.9: Cerebrovascular accident (CVA), unspecified [...] OF EXAM: 05/29/2024 12:40 AM, LOCATION [facility] INDICATION: I63.9: Cerebrovascular accident (CVA), unspecified [...] the clinical team by Nehemias Doll of [facility] at 12:36 AM on 05/29/2024. > [...] OF EXAM: 05/26/2024 5:27 PM, LOCATION [facility] INDICATION: I63.9: Cerebrovascular accident (CVA), unspecified [...] DATE/TIME OF EXAM: 05/26/2024 5:27PM, LOCATION [facility] INDICATION: I63.9: Cerebrovascular accident (CVA), unspecified [...] dictated by Kem Diaz MD, PhD (radiology orderly). I, Monika Her MD have personally reviewed and interpreted this examination/study. > Interpreting Provider: Monika Her MD on 05/27/2024 9:20 AM Narrative 05/27/2024 9:20 AM CDT PROCEDURE: MRI BRAIN WO CONTRAST, DATE/TIME OF EXAM: 05/26/2024 4:41 PM, LOCATION [facility] INDICATION: I63.9: Cerebrovascular accident (CVA), unspecified [...] DATE/TIME OF EXAM: 05/26/2024 4:41PM, LOCATION [facility] INDICATION: I63.9: Cerebrovascular accident (CVA), unspecified [...] dictated by Kem Diaz MD, PhD (radiology orderly). I, Monika Her MD have personally reviewed and interpreted this examination/study. > Interpreting Provider: Monika Her MD on 05/27/2024 9:20 AM Jason Coppola MD MR ORDERABLES * (ABNORMAL) CBC W AUTO DIFFERENTIAL (05/26/2024 8:27 AM CDT) Only the most recent of36 resultswithin the time period is included. WBC 7.7 4.0 - 10.7 x10E9/L 05/26/2024 8:39 AM [facility] RBC Count 3.94(L) 4.30 - 5.80 x10E12/L 05/26/2024 8:39 AM [facility] Hemoglobin 10.6(L) 13.3 - 17.5 g/dL 05/26/2024 8:39 AM [facility] Hematocrit 33.0(L) 38.7 - 51.1 % 05/26/2024 8:39 AM [facility] MCV 83.8 80.0 - 98.0 fL 05/26/2024 8:39 AM [facility] MCH 26.9 26.7 - 33.6 pg 05/26/2024 8:39 AM [facility] MCHC 32.1 31.7 - 36.3 g/dL 05/26/2024 8:39 AM [facility] RDW-CV 14.6 11.3 - 14.8 % 05/26/2024 8:39 AM [facility] Platelet Count 220 150 - 420 x10E9/L 05/26/2024 8:39 AM [facility] MPV 9.8 7.8 - 11.4 fL 05/26/2024 8:39 AM [facility] Neutrophil % 60.9 41.0 - 74.0 % 05/26/2024 8:39 AM [facility] Lymphocyte % 29.5 17.0 - 47.0 % 05/26/2024 8:39 AM [facility] Monocyte % 8.0 3.0 - 11.0 % 05/26/2024 8:39 AM [facility] Eosinophil % 1.2 0.0 - 7.0 % 05/26/2024 8:39 AM [facility] Basophil % 0.3 0.0 - 1.6 % 05/26/2024 8:39 AM [facility] Immature Granulocytes % 0.1 0.0 - 1.0 % 05/26/2024 8:39 AM [facility] Neutrophil Absolute 4.68 1.60 - 7.50 x10E9/L 05/26/2024 8:39 AM [facility] Lymphocyte Absolute 2.26 1.00 - 4.40 x10E9/L 05/26/2024 8:39 AM CDT [facility] Monocyte Absolute 0.61 0.15 - 1.00 x10E9/L 05/26/2024 8:39 AM CDT [facility] Eosinophil Absolute 0.09 0.00 - 0.60 x10E9/L 05/26/2024 8:39 AM CDT [facility] Basophil Absolute 0.02 0.00 - 0.13 x10E9/L 05/26/2024 8:39 AM CDT [facility] Blood BLOOD SPECIMEN / Unknown Venipuncture / Unknown 05/26/2024 8:27 AM CDT 05/26/2024 8:32 AM CDT Jason Coppola MD LAB - HEMATOLOGY ORD ERABLES [facility] [address] [place] [address], [facility] [phone] * HEMOGLOBIN A1C - POINT OF CARE (AMB) (05/22/2024 2:19 PM CDT) Only the most recent of5 resultswithin the time period is included. Hemoglobin A1c POCT 7.1 % Expiration Date 01/23/2026 Lot # [id number] QC Verified Yes Yes Blood BLOOD SPECIMEN [...] Axial images through the brain without contrast. Qiwi Post software was utilized to analyze for intracranial [...] DATE/TIME OF EXAM: 05/17/2024 10:47 AM, LOCATION [facility] INDICATION: W19.XXXA: Unspecified fall, initial encounter ADDITIONAL [...] PORTABLE, DATE/TIME OF EXAM: 05/17/2024 10:47AM, LOCATION [facility] INDICATION: W19.XXXA: Unspecified fall, initial encounter ADDITIONAL [...] - 105 mg/dL 05/17/2024 10:53 AM CDT [facility] Sodium 141 136 - 145 mmol/L 05/17/2024 10:53 AM CDT [facility] Potassium 4.8 3.5 - 5.1 mmol/L 05/17/2024 10:53 AM T [facility] Chloride 106 98 - 107 mmol/L 05/17/2024 10:53 AM CDT [facility] CO2 26 22 - 29 mmol/L 05/17/2024 10:53 AM T [facility] Calcium 9.7 8.4 - 10.4 mg/dL 05/17/2024 10:53 AM [facility] Anion Gap 9 6 - 16 mmol/L 05/17/2024 10:53 AM T [facility] BUN 18 7 - 26 mg/dL 05/17/2024 10:53 AM [facility] Creatinine 0.88 0.72 - 1.25 mg/dL 05/17/2024 10:53 AM [facility] Alkaline Phosphatase 59 40 - 150 U/L 05/17/2024 10:53 AM CDT [facility] ALT 22 0 - 55 U/L 05/17/2024 10:53 AM T [facility] AST 15 5 - 34 U/L 05/17/2024 10:53 AM [facility] Protein Total 8.0 6.4 - 8.3 gm/dL 05/17/2024 10:53 AM [facility] Albumin 3.1(L) 3.4 - 5.0 gm/dL 05/17/2024 10:53 AM [facility] Bilirubin Total 0.3 0.2 - 1.2 mg/dL 05/17/2024 10:53 AM [facility] eGFR by CKD-EPI >90 >=90 mL/min/1.7 3 m2 05/17/2024 10:53 AM [facility] Blood BLOOD SPECIMEN / Unknown Venipuncture / Unknown 05/17/2024 10:24 AM CDT 05/17/2024 10:28 AM CDT Sarah Betancur MD LAB - CHEMISTRY ORDE DUNG [facility] Organization Address City/State/ZIP Co de Phone Number [facility] [address] [place] [address] * CK BLOOD (05/17/2024 10:24 AM CDT) Only the most recent of3 resultswithin the time period is included. CK 125 30 - 200 U/L 05/17/2024 10:53 AM CDT [facility] Blood BLOOD SPECIMEN / Unknown Venipuncture / Unknown 05/17/2024 10:24 AM CDT 05/17/2024 10:28 AM CDT Sarah Betancur MD LAB - CHEMISTRY ORDE DUNG [facility] [address] [place] [address] * XR ABDOMEN KUB PORTABLE (04/28/2024 10:56 AM CDT) Anatomical Region Laterality Modality Abdomen Radiographic Love ging 04/28/2024 10:5 2 AM CDT Impressions 04/28/2024 11:10 AM CDT IMPRESSION: Left upper quadrant gastrostomy tube with contrast opacification of the gastric lumen. No evidence of extraluminal contrast. Report dictated by Ted Weber M.D. (radiology orderly) 04/28/2024 10:57 AM IAv MD have personally reviewed and interpreted this examination/study. > Interpreting Provider: Av Ariza MD on 04/28/2024 11:10 AM Narrative 04/28/2024 11:10 AM CDT PROCEDURE: XR ABDOMEN KUB PORTABLE, DATE/TIME OF EXAM: 04/28/2024 10:56 AM, LOCATION [facility] INDICATION: R68.89: Complaint associated with gastric [...] OF EXAM: 04/28/2024 10:56 AM, LOCATION [facility] INDICATION: R68.89: Complaint associated with gastric [...] Report dictated by Ted Weber M.D. (radiology orderly) 04/28/2024 10:57 AM IAv MD have personally [...] Report dictated by Marc Mei MD (radiology orderly). Rafy Jules MD have personally reviewed and [...] Report dictated by Marc Mei MD (radiology orderly). Rafy Jules MD have personally reviewed and interpreted this examination/study. > Interpreting Provider: Rafy Arciniega MD on 04/22/2024 8:33 AM Frederic Palmer MD DIAGNOSTIC IMAGING O RDERABLES * SARS-COV-2 (COVID-19) RAPID (04/10/2024 1:24 PM CDT) COVID-19 PCR Not detected Not detected 04/10/20 2:48 PM CDT [facility] Other ENTIRE NASOPHARYNX / Unknown Collection / Unknown 04/10/2024 1:24 PM CDT 04/10/2024 2:16 PM CDT Narrative [facility] - 04/10/2024 2:48 PM [...] Aishwarya Barrera MD LAB - [facility] [place] [id number] [place] [id number] * EGD WITH PEG PLACEMENT (03/17/2024 1:08 PM CDT) Report Endoscopy POC _ Patient Name: Raza Vazquez Procedure Date: 03/17/2024 1:08 PM Date of : 1960 Admit Type: Inpatient Age: 63 Gender: Male Ethnicity: Not or Race: Black or Attending MD: Alex Lopez MD, [id number] _ Procedure: Upper GI endoscopy Indications: Place [...] and volume. Procedure Code(s): --- Professional --- 51060, Esophagogastroduoden oscopy, flexible, transoral; with directed placement of percutaneous gastrostomy tube --- Technical --- 62137, Esophagogastroduoden oscopy, flexible, transoral; with directed placement of percutaneous gastrostomy tube Diagnosis Code(s): --- Professional --- R63.39, Other feeding difficulties R13.10, Dysphagia, unspecified Z43.1, Encounter for attention to gastrostomy --- Technical --- R63.39, Other feeding difficulties R13.10, Dysphagia, unspecified Z43.1, Encounter for attention to gastrostomy CPT copyright 2020 [employer]. All rights reserved. The codes documented in this report are preliminary and upon family day care worker review may be revised to meet current compliance requirements. Alex Lopez MD 03/17/2024 1:41:29 PM This report has been signed electronically. Number of Addenda: 0 Note Initiated On: 03/17/2024 1:08 PM [facility] 03/17/2024 1:08 PM CDT Alex Lopez MD GI PROCEDURE ORDERAB LES [facility] * (ABNORMAL) BLOOD GASES [...] % 4.9 % 03/11/2024 4:57 PM CDT [facility] O2 Content Arterial 14.1 Interpret within clinical context ml/dL 03/11/2024 4:57 PM CDT [facility] O2 Saturation Arterial 95 90 - 100 % 03/11/2024 4:57 PM CDT [facility] Methemoglobin <0.8 0.0 - 2.0 % 03/11/2024 4:57 PM CDT [facility] Carboxyhemoglobin 2.3(H) 0.0 - 2.0 % 2023 4:57 PM CDT [facility] Hemoglobin by COOX 10.8(L) 12.0 - 17.6 g/dL 03/11/2024 4:57 PM CDT [facility] Kevin's Test Positive 03/11/2024 4:57 PM CDT [facility] Sample Site Left RA 03/11/2024 4:57 PM CDT [facility] O2 Device Room Air 03/11/2024 4:57 PM CDT [facility] FI O2 21.0 % 03/11/2024 4:57 PM CDT [facility] P/F Ratio 329 03/11/2024 4:57 PM CDT [facility] Blood, arterial ARTERIAL BLOOD SPECIMEN / Unknown 03/11/2024 4:54 PM CDT 03/11/2024 4:54 PM CDT Thea Castaneda MD LAB - BLOOD GASES OR DERABLES [facility] [address] [facility] [employer] [address] [phone] * B-TYPE NATRIURETIC PEPTIDE (03/08/2024 1:01 PM CDT) Only the most recent of2 resultswithin the time period is included. BNP 18 <=100 pg/mL 03/08/2024 1:40 PM CDT [facility] Blood BLOOD SPECIMEN / Unknown Venipuncture / Unknown 03/08/2024 1:01 PM CDT 03/08/2024 1:17 PM CDT Thea Castaneda MD LAB - CHEMISTRY ORDAnirudh RAZO Performing Organization Address [facility]/ZIP Co de Phone Number [facility] [address] [place] [address] * (ABNORMAL) URINE MICROSCOPIC ONLY REFLEX TO CULTURE (02/26/2024 10:10 PM CDT) Reflex Status Culture to follow 02/26/2024 10:29 PM CDT [facility] RBC UA 51-100(A) 0 - 5 # /hpf 02/26/2024 10:29 PM CDT [facility] WBC UA >100(A) 0 - 5 # /hpf 02/26/2024 10:29 PM CDT [facility] Bacteria UA 3+(A) None Seen 02/26/2024 10:29 PM CDT [facility] Squamous Epithelial Cells 3-5 0 - 5 /hpf 02/26/2024 10:29 PM CDT [facility] Mucus UA 3+ /LPF 02/26/2024 10:29 PM CDT [facility] Urine URINE SPECIMEN OBTAINED BY CLEAN CATCH PROCEDURE / Unknown 02/26/2024 10:10 PM CDT 02/26/2024 10:18 PM CDT Narrative [facility] - 02/26/2024 10:29 PM CDT Provider Unknown LAB - URINALYSIS ORD ERAHATTIE Performing Organization Address [facility]/ZIP Co de Phone Number [facility] [address] [place] [address] * (ABNORMAL) URINALYSIS REFLEX MICROSCOPIC REFLEX CULTURE (02/26/2024 10:10 PM CDT) Color UA Beckie(A) Straw, Yellow 02/26/2024 10:23 PM CDT [facility] Clarity UA Cloudy(A) Clear 02/26/2024 10:23 PM CDT [facility] Glucose UA Negative Negative 02/26/2024 10:23 PM CDT [facility] Bilirubin UA Negative Negative 02/26/2024 10:23 PM CDT [facility] Ketone UA Negative Negative 02/26/2024 10:23 PM CDT [facility] Specific [place] UA 1.019 1.005 - 1.030 02/26/2024 10:23 PM CDT [facility] Blood UA 1+(A) Negative 02/26/2024 10:23 PM CDT [facility] pH UA 6.0 5.0 - 8.0 pH 02/26/2024 10:23 PM CDT [facility] Protein UA 1+(A) Negative 02/26/2024 10:23 PM CDT [facility] Urobilinogen UA 2.0(A) Negative mg/dL 02/26/2024 10:23 PM CDT [facility] Nitrite UA Positive(A) Negative 02/26/2024 10:23 PM CDT [facility] Leukocyte UA 3+(A) Negative 02/26/2024 10:23 PM CDT [facility] Urine Microscopy Urine microscopy to follow 02/26/2024 10:23 PM CDT [facility] Reflex Status Culture to follow 02/26/2024 10:23 PM CDT [facility] Urine URINE SPECIMEN OBTAINED BY CLEAN CATCH PROCEDURE / Unknown 02/26/2024 10:10 PM CDT 02/26/2024 10:18 PM CDT Narrative [facility] - 02/26/2024 10:23 PM CDT Ascorbic Acid can cause false negative urine strip tests for blood, glucose, nitrite, and bilirubin. Provider Unknown LAB - URINALYSIS ORD ERABLES [facility] [address] [place] [address] * (ABNORMAL) CULTURE URINE (02/26/2024 10:10 PM CDT) Only the most recent of3 resultswithin the time period is included. Culture Urine >100,000 CFU/mL Escherichia coli(A) VALERIA 02/28/2024 11:34 AM [facility] Urine URINE SPECIMEN OBTAINED BY CLEAN CATCH PROCEDURE / Unknown 02/26/2024 10:10 PM CDT 02/26/2024 10:[address] [facility] - 02/28/2024 11:34 AM CDT Organism [...] Provider Unknown LAB - MICROBIOLOGY O RDERABLES [facility] [address] [facility] [address] [place], [place] [address], [facility] [phone] * CARDIAC RHYTHM STRIP ORDER (02/18/2024 7:29 PM CDT) Only the most recent of2 resultswithin the time period is included. Narrative 02/18/2024 7:29 PM CDT Ordered by an unspecified provider. Scanned Document CARDIAC SERVICES ORD ERABLES * PREALBUMIN (02/16/2024 4:50 AM CDT) [facility] Prealbumin 21.0 16.0 - 42.0 mg/dL 02/16/2024 5:46 AM CDT [facility] Blood BLOOD SPECIMEN / Unknown 02/16/2024 4:50 AM CDT 02/16/2024 5:21 AM CDT Thea Castaneda MD LAB - CHEMISTRY CHRISTIAN RAZO Performing Organization Address City/[facility]/ZIP Co de Phone Number [facility] [address] [place] [address] * TSH (02/16/2024 4:50 AM CDT) [facility] TSH 1.6844 0.35 - 4.94 uIU/mL 02/16/2024 6:09 AM CDT [facility] Blood BLOOD SPECIMEN / Unknown Venipuncture / Unknown 02/16/2024 4:50 AM CDT 02/16/2024 5:21 AM CDT Thea Castaneda MD LAB - CHEMISTRY CHRISTIAN RAZO Performing Organization Address [facility] Co de Phone Number [facility] [address] [place] [address] * (ABNORMAL) RENAL FUNCTION PANEL (02/14/2024 4:10 PM CDT) Only the most recent of4 resultswithin the time period is included. [facility] Glucose 253(H) 70 - 105 mg/dL 02/14/2024 4:32 PM CDT [facility] Sodium 135(L) 136 - 145 mmol/L 02/14/2024 4:32 PM CDT [facility] Potassium 4.2 3.5 - 5.1 mmol/L 02/14/2024 4:32 PM CDT [facility] Chloride 104 98 - 107 mmol/L 02/14/2024 4:32 PM CDT [facility] CO2 22 22 - 29 mmol/L 02/14/2024 4:32 PM CDT [facility] Calcium 10.0 8.4 - 10.4 mg/dL 02/14/2024 4:32 PM CDT [facility] Anion Gap 9 6 - 16 mmol/L 02/14/2024 4:32 PM CDT [facility] BUN 38(H) 7 - 26 mg/dL 02/14/2024 4:32 PM CDT [facility] Creatinine 0.95 0.72 - 1.25 mg/dL 02/14/2024 4:32 PM CDT [facility] Albumin 2.6(L) 3.4 - 5.0 gm/dL 02/14/2024 4:32 PM CDT [facility] Phosphorus 5.2(H) 2.3 - 4.7 mg/dL 02/14/2024 4:32 PM CDT [facility] eGFR by CKD-EPI 89(L) >=90 mL/min/1.7 3 m2 02/14/2024 4:32 PM CDT [facility] Blood BLOOD SPECIMEN / Unknown Venipuncture / Unknown 02/14/2024 4:10 PM CDT 02/14/2024 4:15 PM CDT Andrea Zamorano MD LAB - CHEMISTRY ORDE DUNG Performing Organization Address City/[facility] Co de Phone Number [facility] [address] [place] [address] * SLIDE SCAN HEMATOLOGY (02/13/2024 4:29 AM CDT) Only the most recent of5 resultswithin the time period is included. RBC Morphology NORMAL 02/13/2024 5:32 AM CDT [facility] Platelet Morphology NORMAL 02/13/2024 5:32 AM CDT [facility] Blood BLOOD SPECIMEN / Unknown Venipuncture / Unknown 02/13/2024 4:29 AM CDT 02/13/2024 4:44 AM CDT Chuy Siegel DO LAB - HEMATOLOGY ORD ERABLES Performing Organization Address City/[facility]/ZIP Co de Phone Number [facility] [address] [place] [address] * AMMONIA (02/08/2024 11:53 AM CDT) Pathologist [facility] Ammonia 33 18 - 72 umol/L 02/08/2024 12:16 PM CDT [facility] Blood BLOOD SPECIMEN / Unknown Venipuncture / Unknown 02/08/2024 11:53 AM CDT 02/08/2024 12:02 PM CDT Chuy Salma Robbin LAB - CHEMISTRY MONTROSEAnirudh RAZO Performing Organization Address [facility] Co de Phone Number [facility] [id number] [place] [address] * (ABNORMAL) HEPATIC FUNCTION PANEL (02/08/2024 5:26 AM CDT) [facility] Alkaline Phosphatase 193(H) 40 - 150 U/L 02/08/2024 9:54 AM CDT [facility] ALT 73(H) 0 - 55 U/L 02/08/2024 9:54 AM CDT [facility] AST 62(H) 5 - 34 U/L 02/08/2024 9:54 AM CDT [facility] Protein Total 8.0 6.4 - 8.3 gm/dL 02/08/2024 9:54 AM CDT [facility] Albumin 2.1(L) 3.4 - 5.0 gm/dL 02/08/2024 9:54 AM CDT [facility] Bilirubin Total 0.3 0.2 - 1.2 mg/dL 02/08/2024 9:54 AM CDT [facility] Bilirubin Direct 0.163 0.10 - 0.50 mg/dL 02/08/2024 9:54 AM CDT [facility] Blood BLOOD SPECIMEN / Unknown Line Draw / Unknown 02/08/2024 5:26 AM CDT 02/08/2024 5:37 AM CDT Chuy Salma Robbin MOSQUEDA LAB - CHEMISTRY CHRISTIAN RAZO Performing Organization Address [facility] Co de Phone Number [facility] [address] [place] [address] * (ABNORMAL) URINALYSIS REFLEX TO MICROSCOPIC NO CULTURE (02/06/2024 11:40 AM CDT) Color UA Beckie(A) Straw, Yellow 02/06/2024 1:03 PM CDT [facility] Clarity UA Cloudy(A) Clear 02/06/2024 1:03 PM CDT [facility] Glucose UA Negative Negative 02/06/2024 1:03 PM CDT [facility] Bilirubin UA Negative Negative 02/06/2024 1:03 PM CDT [facility] Ketone UA Negative Negative 02/06/2024 1:03 PM CDT [facility] Specific [place] UA 1.025 1.005 - 1.030 02/06/2024 1:03 PM CDT [facility] Blood UA 3+(A) Negative 02/06/2024 1:03 PM CDT [facility] pH UA 5.0 5.0 - 8.0 pH 02/06/2024 1:03 PM CDT [facility] Protein UA 2+(A) Negative 02/06/2024 1:03 PM CDT [facility] Urobilinogen UA 2.0(A) Negative mg/dL 02/06/2024 1:03 PM CDT [facility] Nitrite UA Negative Negative 02/06/2024 1:03 PM CDT [facility] Leukocyte UA Trace(A) Negative 02/06/2024 1:03 PM CDT [facility] Urine Microscopy Urine microscopy to follow 02/06/2024 1:03 PM CDT [facility] Urine URINE SPECIMEN OBTAINED VIA INDWELLING URINARY CATHETER / Unknown Collection / Unknown 02/06/2024 11:40 AM CDT 02/06/2024 12:56 PM CDT Narrative [facility] - 02/06/2024 1:03 PM CDT Kel Jacome MD LAB - URINALYSIS ORD ERABLES [facility] [address] [place] [address] * (ABNORMAL) URINE MICROSCOPIC ONLY (02/06/2024 11:40 AM CDT) RBC UA >100(A) 0 - 5 # /hpf 02/06/2024 1:30 PM CDT [facility] WBC UA 11-20(A) 0 - 5 # /hpf 02/06/2024 1:30 PM CDT [facility] Hyaline Casts None Seen 0 - 2 /LPF 02/06/2024 1:30 PM CDT [facility] Bacteria UA 2+(A) None Seen 02/06/2024 1:30 PM CDT [facility] Squamous Epithelial Cells 6-10(A) 0 - 5 /hpf 02/06/2024 1:30 PM CDT [facility] Urine URINE SPECIMEN OBTAINED VIA [employer]WELL[employer] URINARY CATHETER / Unknown Collection / Unknown 02/06/2024 11:40 AM CDT 02/06/2024 12:56 PM CDT Kel Jacome MD LAB - URINALYSIS ORD ERABLES Performing Organization Address City/[facility]/ZIP Co de Phone Number [facility] [address] [place] [address] * MRSA DNA PCR (02/06/2024 11:33 AM CDT) Only the most recent of2 resultswithin the time period is included. MRSA DNA by PCR Not detected Not detected 02/07/2024 12:[address] [facility] Microbiology SPECIMEN FROM NASAL FOSSAE / Unknown Collection / Unknown 02/06/2024 11:33 AM CDT 02/06/2024 12:[address] [facility] - 02/07/2024 12:39 AM CDT Methicillin-resistant Staphylococcus aureus (MRSA) DNA is not detected (presumed not colonized with MRSA). Kel Jacome MD LAB - MICROBIOLOGY O RDERABLES Performing Organization Address City/[facility]/ZIP Co de Phone Number [facility] [address] [place] [address], [facility] [phone] * (ABNORMAL) CULTURE SPUTUM+GRAM STAIN (02/06/2024 11:33 AM CDT) Only the most recent of2 resultswithin the time period is included. Culture Moderate Staphylococcus aureus(A) VALERIA 02/08/2024 10:[address] [facility] Comment:Staphylococcus aureu s methicillin-susceptible (MSSA) detected by penicillin binding protein immunoassay. Culture Rare normal oropharyngeal tae VALERIA 02/08/2024 10:[address] [facility] Gram Stain <10 per low power field Squamous epithelial cells 02/08/2024 10:[address] [facility] Gram Stain >= 25 per low power field Polymorphonuclear cells 02/08/2024 10:[address] [facility] Gram Stain Moderate Gram-positive cocci 02/08/2024 10:[address] [facility] Microbiology LOWER RESPIRATORY FLUID SPECIMEN / [...] Jacome MD LAB - MICROBIOLOGY O RDERABLES [facility] [address] [facility] [place] [address], [facility] [phone] * CULTURE BLOOD (02/06/2024 11:31 AM CDT) Only the most recent of6 resultswithin the time period is included. Culture No growth day 5 VALERIA 02/11/2024 1:[address] [facility] Blood PERIPHERAL BLOOD / Unknown Venipuncture / Unknown 02/06/2024 11:31 AM CDT 02/06/2024 11:39 AM CDT Kel Jacome MD LAB - MICROBIOLOGY O RDERABLES [facility] [address] [place], [place] [address] [phone] * (ABNORMAL) TRIGLYCERIDES BLOOD (02/04/2024 3:28 AM CDT) Triglycerides 190(H) <150 mg/dL 02/04/2024 4:07 AM CDT [facility] Blood BLOOD SPECIMEN / Unknown Line Draw / Unknown 02/04/2024 3:28 AM CDT 02/04/2024 3:48 AM CDT Kel Jacome MD LAB - CHEMISTRY ORDAnirudh RAZO Performing Organization Address City/[facility]/ZIP Co de Phone Number [facility] [address] [place] [address] * (ABNORMAL) DIFFERENTIAL MANUAL (02/03/2024 10:01 AM CDT) Only the most recent of2 resultswithin the time period is included. Neutrophil % 56 41 - 74 % 02/03/2024 10:56 AM CDT [facility] Lymphocyte % 28 17 - 47 % 02/03/2024 10:56 AM CDT [facility] Monocyte % 13(H) 3 - 11 % 02/03/2024 10:56 AM CDT [facility] Eosinophil % 3 0 - 7 % 02/03/2024 10:56 AM CDT [facility] Neutrophil Absolute 8.51(H) 1.60 - 7.50 x10E9/L 02/03/2024 10:56 AM CDT [facility] Lymphocyte Absolute 4.26 1.00 - 4.40 x10E9/L 02/03/2024 10:56 AM CDT [facility] Monocyte Absolute 1.98(H) 0.15 - 1.00 x10E9/L 02/03/2024 10:56 AM CDT [facility] Eosinophil Absolute 0.46 0.00 - 0.60 x10E9/L 02/03/2024 10:56 AM CDT [facility] RBC Morphology RED CELL INDICIES CONFIRMED 02/03/2024 10:56 AM CDT [facility] Blood BLOOD SPECIMEN / Unknown Venipuncture / Unknown 02/03/2024 10:01 AM CDT 02/03/2024 10:19 AM CDT Chuy Siegel DO LAB - HEMATOLOGY ORD ERABLES [facility] [address] [place] [address] * XR CHEST POST ETT [...] BLOOD GASES OR DERABLES [facility] [address] [employer] [address] [phone] * EGD WITH PEG PLACEMENT (01/30/2024 6:35 [...] g tube Procedure Code(s): --- Professional --- 88545, Esophagogastrodu odenoscopy, flexible, transoral; with directed placement of percutaneous gastrostomy tube --- Technical --- 99160, Esophagogastrodu odenoscopy, flexible, transoral; with directed placement of percutaneous gastrostomy tube Diagnosis Code(s): --- Professional --- Z43.1, Encounter for attention to gastrostomy R63.39, Other feeding difficulties --- Technical --- Z43.1, Encounter for attention to gastrostomy R63.39, Other feeding difficulties CPT copyright 2020 [employer]. All rights reserved. The codes documented in this report are preliminary and upon family day care worker review may be revised to meet current compliance requirements. Dr. Jeff Ruffin MD Jeff Ruffin MD 01/30/2024 3:19:32 PM This report has been signed electronically. Number of Addenda: 0 Note Initiated On: 01/30/2024 6:35 AM [facility] 01/30/2024 6:35 AM CDT Jeff Ruffin MD GI PROCEDURE ORDERAB LES [facility] [place] [address] * (ABNORMAL) BLOOD GASES+LYTES ARTERIAL (01/27/2024 12:33 PM CDT) pH Arterial 7.42 7.35 - 7.45 pH 01/27/2024 12:36 PM CDT [facility] pO2 Arterial 64(L) 80 - [...] BLOOD GASES OR DERABLES [facility] [address] [phone] * (ABNORMAL) LIPID PROFILE (01/24/2024 4:43 AM CDT) Only the most recent of5 resultswithin the time period is included. Cholesterol 229(H) <200 mg/dL 01/24/2024 5:21 AM CDT [facility] Triglycerides 179(H) <150 mg/dL 01/24/2024 5:21 AM CDT [facility] HDL Cholesterol 32(L) >40 mg/dL 5:21 AM CDT [facility] LDL Calculated 161(H) <130 mg/dL 01/24/2024 5:21 AM CDT [facility] VLDL Calculated 36(H) <=30 mg/dL 5:21 AM CDT [facility] Chol HDL Ratio 7.2(H) <4.5 01/24/2024 5:21 AM CDT [facility] LDL/HDL Ratio 5.0(H) <5.0 01/24/2024 5:21 AM CDT [facility] Blood BLOOD SPECIMEN / Unknown Venipuncture / Unknown 01/24/2024 4:43 AM CDT 01/24/2024 4:54 AM CDT Gladys Mcgee MD LAB - CHEMISTRY CHRISTIAN RAZO Performing Organization Address City/[facility] Co de Phone Number [facility] [id number] [place] [address] * TROPONIN-I HIGH SENSITIVE BASELINE + 1HR (01/23/2024 8:04 PM CDT) Only the most recent of2 resultswithin the time period is included. Troponin I High Sensitive 19 <=35 ng/L 01/23/2024 8:48 PM CDT [facility] Blood BLOOD SPECIMEN / Unknown Venipuncture / Unknown 01/23/2024 8:04 PM CDT 01/23/2024 8:23 PM CDT Gladys Mcgee MD LAB - CHEMISTRY CHRISTIAN RAZO Performing Organization Address City/[facility]/ZIP Co de Phone Number [facility] [address] [place] [address] * IR CAROTID CEREBRAL ANGIOGRAM [...] cerebral right vertebral artery 2. Angioplasty with Haywood 2.5 mm X 15 mm balloon 4. [...] cross the lesion. A 2.5 x15 mm Haywood angioplasty balloon was advanced over the exchange [...] was removed. A run performed from the SUPERVISOR DUMPING demostrated a normal femoral artery bifurcation. The [...] and VAISHNAVI with large PCOM filling the PIVOT END POLISHER. The left vertebral artery angiogram shows a [...] to starting DAPT - Keep SBP 160-200. Shreie Beltre MD Interventional Vascular Neurology 01/23/2024 Sherie Beltre MD IR ORDERABLES * TROPONIN-I HIGH SENSITIVE REFLEX 1HOUR (01/23/2024 11:52 AM CDT) Troponin I High Sensitive 26 <=35 ng/L 01/23/2024 12:26 PM CDT [facility] Delta Troponin I HS 2 <6 ng/L 01/23/2024 12:26 PM CDT [facility] Blood BLOOD SPECIMEN / Unknown Venipuncture / Unknown 01/23/2024 11:52 AM CDT 01/23/2024 11:59 AM CDT Gladys Mcgee MD LAB - CHEMISTRY CHRISTIAN RAZO [facility] Organization Address City/State/ZIP Co de Phone Number [facility] [address] [place] [address] * URINE DRUG SCREEN IMMUNOASSAY (01/23/2024 11:46 AM CDT) [facility] Amphetamines Screen Urine Not detected Not detected 01/23/2024 12:12 PM CDT [facility] Barbiturates Screen Urine Not detected Not detected 01/23/2024 12:12 PM CDT [facility] Benzodiazepines Screen Urine Not detected Not detected 01/23/2024 12:12 PM CDT [facility] Cannabinoids Screen Urine Not detected Not detected 01/23/2024 12:12 PM CDT [facility] Cocaine Screen Urine Not detected Not detected 01/23/2024 12:12 PM CDT [facility] Fentanyl Urine Not detected Not detected 01/23/2024 12:12 PM CDT [facility] Methadone Screen Urine Not detected Not detected 01/23/2024 12:12 PM CDT [facility] Opiate Screen Urine Not detected Not detected 01/23/2024 12:12 PM CDT [facility] Phencyclidine Screen Urine Not detected Not detected 01/23/2024 12:12 PM CDT [facility] Urine URINE / Unknown Collection / Unknown 01/23/2024 11:46 AM CDT 01/23/2024 11:48 AM CDT Narrative [facility] - 01/23/2024 12:12 PM CDT [...] MD LAB - URINE CHEMISTR Y ORDERABLES [facility] [address] [place] [address] * Intubation (01/23/2024 11:39 AM CDT) Narrative Gladys Mcgee MD - 01/23/2024 11:39 AM CDT Gladys Mcgee MD 01/24/2024 8:45 PM Intubation Date/Time: 01/23/2024 11:39 AM Performed by: Gladys Mcgee MD Authorized by: Gladys Mcgee MD Consent: Consent obtained: Emergent situation [place] protocol: Relevant documents present and verified: yes [...] 0.9 - 1.2 01/23/2024 10:56 AM CDT [facility] Blood BLOOD SPECIMEN / Unknown 01/23/2024 10:45 AM CDT 01/23/2024 10:56 AM CDT Gladys Mcgee MD LAB - POINT OF CARE ORDERABLES [facility] [address] [place] [address] * (ABNORMAL) HEMOGLOBIN A1C (01/23/2024 10:39 AM CDT) Only the most recent of4 resultswithin the time period is included. Hemoglobin A1c 6.1(H) <5.7 % 01/23/2024 7:28 PM CDT [facility] Estimated Average Glucose 128 mg/dL 01/23/2024 7:28 PM CDT [facility] Blood BLOOD SPECIMEN / Unknown Venipuncture / Unknown 01/23/2024 10:39 AM CDT 01/23/2024 10:42 AM CDT Narrative [facility] - 01/23/2024 7:28 PM CDT [...] Gladys Mcgee MD LAB - CHEMISTRY ORDE [facility] [address] [place] [address] * TYPE + SCREEN PANEL (01/23/2024 10:39 AM CDT) Only the most recent of3 resultswithin the time period is included. ABO Rh O NEG 01/23/2024 11:33 AM CDT [facility] Comment:History checked. Antibody Screen NEG 11:33 AM CDT [facility] Blood Bank BLOOD SPECIMEN / Unknown Venipuncture / Unknown 01/23/2024 10:39 AM CDT 01/23/2024 10:42 AM CDT Gladys Mcgee MD LAB - BLOOD BANK ORD ERABLES Performing Organization Address [facility] Co de Phone Number [facility] [address] [place] [address] [phone] * PTT (01/23/2024 10:39 AM CDT) PTT 28.3 23.0 - 38.4 sec 01/23/2024 10:55 AM CDT [facility] Blood BLOOD SPECIMEN / Unknown Venipuncture / Unknown 01/23/2024 10:39 AM CDT 01/23/2024 10:42 AM CDT Narrative [facility] - 01/23/2024 10:55 AM CDT Heparin Therapeutic Range for PTT: 69.0 - 110.0 seconds. Gladys Mcgee MD LAB - COAGULATION OR DERABLES Performing Organization Address City/[facility]/ZIP Co de Phone Number [facility] [id number] [place] [address] * PT-INR (01/23/2024 10:39 AM CDT) Only the most recent of2 resultswithin the time period is included. PT 13.3 12.1 - 14.8 sec 01/23/2024 10:55 AM CDT [facility] INR 1.0 0.9 - 1.1 01/23/2024 10:55 AM CDT [facility] Blood BLOOD SPECIMEN / Unknown Venipuncture / Unknown 01/23/2024 10:39 AM CDT 01/23/2024 10:42 AM CDT Narrative [facility] - 01/23/2024 10:55 AM CDT Conventional Warfarin Anticoagulant Therapy: INR Reference Range: 2.0-3.0 Intensive Warfarin Anticoagulant Therapy: INR Reference Range: 2.5-3.5 Gladys Mcgee MD LAB - COAGULATION OR DERABLES Performing Organization Address [facility] de Phone Number [facility] [id number] [place] [address] * ALCOHOL ETHYL BLOOD (01/23/2024 10:39 AM CDT) Ethanol <10.0 <10 mg/dL 01/23/2024 11:09 AM CDT [facility] LABORATORY Ethanol Calculated <0.010 <=0.100 gm/dL 01/23/2024 11:09 AM CDT [facility] Blood BLOOD SPECIMEN / Unknown Venipuncture / Unknown 01/23/2024 10:39 AM CDT 01/23/2024 10:42 AM CDT Narrative [facility] - 01/23/2024 11:09 AM CDT [...] equal a CIRILO for legal purposes. Gladys cMgee MD LAB - CHEMISTRY ORDE RABLES Performing Organization Address [facility] de Phone Number [facility] [address] [place], [place] [phone] * TROPONIN I (07/27/2022 2:44 AM CDT) Only the most recent of7 resultswithin the time period is included. Troponin I <0.010 <0.038 ng/mL 07/27/2022 3:16 AM CDT [facility] Blood BLOOD SPECIMEN / Unknown Venipuncture / Unknown 07/27/2022 2:44 AM CDT 07/27/2022 2:51 AM CDT Chandler Houston LAB - CHEMISTRY ORDE DUNG Performing Organization Address [facility] Co de Phone Number [facility] [address] [place] [address] * SARS-COV-2 (COVID-19)+INFLU A+B PCR RAPID (07/26/2022 5:12 PM CDT) Pathologist [facility] COVID-19 PCR Not detected Not detected 07/26/20 5:54 PM CDT [facility] Influenza A PCR Not detected Not detected 07/26/2022 5:54 PM CDT [facility] Influenza B PCR Not detected Not detected 07/26/2022 5:54 PM CDT [facility] Microbiology SPECIMEN FROM NASOPHARYNGEAL STRUCTURE / Unknown Collection / Unknown 07/26/2022 5:12 PM CDT 07/26/2022 5:14 PM CDT Narrative [facility] - 07/26/2022 5:54 PM CDT This [...] - MICROBIOLOGY O RDERABLES Performing Organization Address [facility]/ZIP Co de Phone Number [facility] [address] [place], [place] [phone] * LACTIC ACID BLOOD REFLEX TO REPEAT (07/26/2022 4:53 PM CDT) Pathologist [facility] Lactic Acid 0.77 <=2 mmol/L 07/26/2022 5:21 PM CDT [facility] Blood BLOOD SPECIMEN / Unknown Venipuncture / Unknown 07/26/2022 4:53 PM CDT 07/26/2022 5:06 PM CDT Chandler Houston DO LAB - CHEMISTRY ORDE RABLES Performing Organization Address [facility] de Phone Number [facility] [id number] [place] [phone] * D-DIMER (07/26/2022 4:53 PM CDT) [facility] D-Dimer 0.30 0.27 - 0.50 ug/mL FEU 07/26/2022 5:21 PM CDT [facility] Blood BLOOD SPECIMEN / Unknown Venipuncture / Unknown 07/26/2022 4:53 PM CDT 07/26/2022 5:07 PM CDT Narrative [facility] - 07/26/2022 5:21 PM CDT In the absence of clinical symptoms, a value less than or equal to 0.5 mcg/mL FEU significantly decreases the probability of PE/DVT (negative predictive value >95%). 1 mcg/ml FEU = 1 Fibrinogen Equivalent Unit (approximates 0.5 mcg/mL of D- dimer). Chandler Houston DO LAB - COAGULATION OR DERABLES Performing Organization Address [facility] de Phone Number [facility] [address] [place] [address] * CARDIAC EKG ORDER (03/28/2021) Only the [...] * ENDOSCOPY, COLON, SCREENING (11/12/2020 12:12 [address]CAR OPERATOR) Report Endoscopy POC Endoscopy Department Report _ [...] colon K64.8, Other hemorrhoids CPT copyright 2019 [employer]. All rights reserved. The codes documented in this report are preliminary and upon family day care worker review may be revised to meet current compliance requirements. Jodi Vernon MD 11/12/2020 12:57:40 PM Note Initiated On: 11/12/2020 12:12 PM Number of Addenda: 0 [facility] [address] [place] [address] [facility] 11/12/2020 12:1 [address] OPERATOR Jodi Vernon MD GI PROCEDURE ORDER GISSEL [facility] [place] * HEPATITIS C AB W/RFLX TO HCV RNA QN PCR (07/23/2020 6:49 AM CDT) Hepatitis C Antibody NON-REACTI VE NON-REACT [facility] Signal to Cut-Off 0.09 <1.00 [facility] Comment: HCV antibody was non-reactive. There is no laboratory evidence of HCV infection. In most cases, no further action is required. However, if recent HCV exposure is suspected, a test for HCV RNA (test code 49119) is suggested. For additional information please refer to http://education.[employer]/faq/BEA68t4 (This link is being provided for informational/ educational purposes only.) Test Performed at: [address] [place] [address] EH PURVIS DO,MPH 07/23/2020 6:49 AM CDT 07/23/2020 6:51 AM CDT Lisy Olmedo MD LAB - SALAD BAR CLERK RY ORDERABLES Performing Organization Address [facility] de Phone Number [employer] [address] [place] [address] * RPR W REFLEX TO TITER+CONFIRM (07/23/2020 6:49 AM CDT) [facility] RPR NON-REACTI VE NON-REACT ELIDA [facility] Comment: REPORT COMMENT: FASTING:YES Test Performed at: [address] [place] [address] EH PURVIS DO,MPH 07/23/2020 6:49 AM CDT 07/23/2020 6:51 AM CDT Lisy Olmedo MD LAB - SALAD BAR CLERK RY ORDERABLES Performing Organization Address [facility] de Phone Number [employer] [address] [place] [address] * HIV-1 HIV-2 ANTIBODY + HIV P24 AG PANEL (07/23/2020 6:49 AM CDT) [facility] HIV Screen 4th Generation w Reflex NON-REACT [...] purpose. For additional information please refer to http://education.[employer]/faq/ZHV015 (This link is being provided for informational/ educational purposes only.) The performance of this assay has not been clinically validated in patients less than 2 years old. Test Performed at: [employer] [facility] [employer] [address] EH PURVIS DO,MPH 07/23/2020 6:49 AM CDT 07/23/2020 6:51 AM CDT Lisy Olmedo MD LAB - SALAD BAR CLERK RY ORDERABLES Performing Organization Address City/[facility] Phone Number [facility] [address] [place] [address] * MICROALB/CREAT RATIO URINE RANDOM PANEL (07/23/2020 [...] within a diagnostic category. Test Performed at: [facility] [id number] EH PURVIS DO,MPH 07/23/2020 6:49 AM CDT 07/23/2020 6:51 AM CDT Lisy Olmedo MD LAB - URINE C HEMISTRY ORDERABLES Performing Organization Address City/State/[facility] Co de Phone Number [facility] [address] [place] [address] * CHLAMYDIA + GC AMPLIFIED PROBE (07/23/2020 6:49 AM CDT) Chlamydia trachomatis RNA NOT DETECTED NOT DETECTED [facility] GC RNA NOT DETECTED NOT DETECTED [facility] Please Note [facility] Comment: The analytical performance characteristics of this assay, when used to test SurePath(TM) specimens have been determined by [email or web address]. The modifications have not been cleared or approved by the FDA. This assay has been validated pursuant to the CLIA regulations and is used for clinical purposes. For additional information, please refer to https://education.[employer]/faq/MHJ358 (This link is being provided for information/ educational purposes only.) Test Performed at: [employer] [facility] [address] [place] [address] EH PURVIS DO,MPH 07/23/2020 6:49 AM CDT 07/23/2020 6:51 AM CDT Lisy Olmedo MD LAB - MICROBI OLOGY ORDERABLES Performing Organization Address [facility] Co de Phone Number [facility] [address] [place] [phone] * CARDIAC REHAB (06/14/2020 11:50 AM CDT) [...] sternotomy. Dictated by Yeyo Birmingham MD (radiology orderly). Dr. Lobito Jules M.D. have personally reviewed [...] sternotomy. Dictated by Yeyo Birmingham MD (radiology orderly). Dr. Lobito Jules M.D. have personally reviewed and interpretedthis examination/study. This report was electronically signed by Lobito VAZQUEZ M.D. on 02/12/2019 4:18 PM . Nehemias Dennis MD CT ORDERABLES * CREATININE BLOOD - POCT (IP) [facility] (02/11/2019 4:58 PM CDT) Creatinine POCT 1.20 0.3 - 1.3 mg/dL [facility] POCT TESTING eGFR POCT 60 60 ml/min [facility] Blood BLOOD SPECIMEN / Unknown 02/11/2019 4:58 PM CDT Nehemias Dennis MD LAB - POINT OF CAR E ORDERABLES [facility] POCT TESTING [address] [phone] * NM MYOCARD PERFUSION SPECT STRESS AND REST (09/06/2018 12:[address] OPERATOR) Anatomical Region Laterality Modality Chest Nuclear Medicine 09/06/2018 1:[address] OPERATOR Narrative 09/06/2018 1:[address] OPERATOR NM MYOCARDIAL SPECT SCAN Indications for examination: [...] on 09/06/2018 at 1:22 PM Silvia TAPIA IN ORDERABLES * STRESS TEST LEXISCAN (NUCLEAR) (09/06/2018 11:47 [address]CAR OPERATOR) Stress Test Summary For full formatted report, [...] report Diagnosis: Confirmed by PRESTON HEBERT MD ([id number]) on 09/06/2018 12:02:51 PM Attending Physician: Referred By: Overread By: PRESTON HEBERT MD [facility] STRESS 09/06/2018 11:4 [address]CAR OPERATOR 09/06/2018 12:02 [address]CAR OPERATOR Silvia TAPIA CARDIAC SERVICES O RDERABLES [facility] * ECHOCARDIOGRAM 2D WITH DOPPLER (09/06/2018 10:15 [address] STRE[address]CAR OPERATOR) 09/06/2018 10:1 5 [address]CAR OPERATOR Narrative [facility] CARDIAC SERVICES - 09/07/2018 9:[address] O[address] [address] Transthoracic Echocardiogram 2D, M-mode, Doppler, and Color Doppler Patient: RAZA VAZQUEZ MR number: [id number] Height: 75 in Weight: 330 lb BSA: 2.72 m Study date: 06-Sep-2018 : 1960 Age: 57 years Gender: Male Race: Black Allergies: LISINOPRIL, PENICILLINS, PENICILLIN V Diagnoses: R07.89 - Other chest pain Reading Physician: Jose Jonas MD Referring Physician: Jose Jonas MD FISHER SEAL: Mirna Llanos STEFANIE Cardiology Group: [facility] Summary: - History: - CAD - Left ventricle: - Systolic function was at the lower limits of normal. Ejection fraction was estimated to be 50 %. - There were no regional wall motion abnormalities. - Wall thickness was normal. Indications: Evaluate chest pain. History: Prior history: CAD Risk factors: hypertension. Diabetes. Procedure: The study was performed in the [facility]. This was a routine study. [...] MV A Richard: 0.7 m/s MV Dec [place]: 4.6 m/s2 MV E Richard: 0.9 m/s MV E/A Ratio: 1.4 Septal e': 0 m/s Prepared and signed by Jose Jonas MD Signed 07-Sep-2018 09:12:59 Procedure Note Unknown, Provider, - 09/07/[address] [address] Transthoracic Echocardiogram 2D, M-mode, Doppler, and Color Doppler Patient: RAZA VAZQUEZ MR number: [id number] Height: 75 in Weight: 330 lb BSA: 2.72 m Study date: 06-Sep-2018 : 1960 Age: 57 years Gender: Male Race: Black Allergies: LISINOPRIL, PENICILLINS, PENICILLIN V Diagnoses: R07.89 - Other chest pain Reading Physician: Jose Jonas MD Referring Physician: Jose Jonas MD FISHER SEAL: Mirna Llanos RDCS Cardiology Group: [facility] Summary: - History: - CAD - Left ventricle: - Systolic function was at the lower limits of normal. Ejection fraction was estimated to be 50 %. - There were no regional wall motion abnormalities. - Wall thickness was normal. Indications: Evaluate chest pain. History: Prior history: CAD Risk factors: hypertension. Diabetes. Procedure: The study was performed in the [facility]. This was a routine study. [...] MV A Richard: 0.7 m/s MV Dec [place]: 4.6 m/s2 MV E Richard: 0.9 m/s [...] intact. Dictated by Yeyo Birmingham MD (radiology orderly). I, Dr. SAL DOHERTY have personally reviewed [...] intact. Dictated by Yeyo Birmingham MD (radiology orderly). I, Dr. SAL DOHERTY have personally reviewed and interpreted this examination/study. This report was electronically signed by SAL DOHERTY on 01/29/2018 1:35 PM . Rosendo Fernandez INFORMATION RESOURCES MANAGER-WOODWINDS TEACHER DIAGNOSTIC I MAGING ORDERABLES * URINALYSIS DIPSTICK AUTO (01/28/2018 9:35 PM CDT) Color UA Yellow Straw, Yellow, Colorless, Light Yellow 01/28/2018 9:50 PM [facility] Clarity UA Clear Clear 01/28/2018 9:50 PM [facility] Specific [place] UA 1.015 1.001 - 1.030 01/28/2018 9:50 PM [facility] pH UA 5.0 5.0 - 8.0 01/28/2018 9:50 PM [facility] Protein UA Negative <=20 mg/dL 01/28/2018 9:50 PM [facility] Glucose UA Negative Negative mg/dL 01/28/2018 9:50 PM [facility] Ketone UA Negative Negative mg/dL 01/28/2018 9:50 PM [facility] Bilirubin UA Negative Negative mg/dL 01/28/2018 9:50 PM [facility] Blood UA Negative Negative 01/28/2018 9:50 PM [facility] Nitrite UA Negative Negative 01/28/2018 9:50 PM [facility] Leukocyte Esterase Negative Negative 01/28/2018 9:50 PM [facility] Urobilinogen UA <2.0 <2.0 mg/dL 8 9:50 PM [facility] Urine URINE SPECIMEN OBTAINED BY CLEAN CATCH PROCEDURE / Unknown Collection / Unknown 01/28/2018 9:35 PM CDT 01/28/2018 9:35 PM CDT Rosendo Fernandez INFORMATION RESOURCES MANAGER-WOODWINDS TEACHER LAB - URINAL YSIS ORDERABLES Performing Organization Address [facility]/ZIP Co de Phone Number [address] [phone] * HEPARIN PLATELET INDUCED ANTIBODY (01/26/2018 9:18 [...] - CHEMISTRY ORDE RABLES Performing Organization Address [facility] Co de Phone Number [address] [phone] * ECHO FU OR LIMITED (01/25/2018 12:19 [...] - 1.34 mmol/L 01/25/2018 9:09 AM T [facility] pH Whole Blood 7.42 7.35 - 7.45 01/25/2018 9:09 AM [facility] Blood BLOOD SPECIMEN / Unknown Venipuncture / Unknown 01/25/2018 9:05 AM CDT 01/25/2018 9:07 AM CDT Fabienne Cardona MD LAB - CHEMISTRY ORDE RABLES Performing Organization Address [facility] Co de Phone Number [address] [phone] * PT-INR [facility] (01/25/2018 12:26 AM CDT) Only the most recent of5 resultswithin the time period is included. PT 14.2 12.1 - 14.8 Seconds 01/25/2018 12:56 AM [facility] INR 1.1 See Comment 01/25/2018 12:56 AM [facility] Comment: Suggested therapeutic range for low-intensity [...] - COAGULATION OR DERABLES Performing Organization Address [facility] Co de Phone Number [address] [phone] * (ABNORMAL) SVO2 FOR RECALIBRATION (01/25/2018 12:26 AM CDT) Only the most recent of2 resultswithin the time period is included. SVO2 for Recalibration 80.6(H) 66.0 - 77.0 % 01/25/2018 12:46 AM T [facility] Blood BLOOD SPECIMEN / Unknown Venipuncture / Unknown 01/25/2018 12:26 AM CDT 01/25/2018 12:39 AM CDT Fabienne Cardona MD LAB - CHEMISTRY CHRISTIAN RAZO Performing Organization Address [facility]/ZIP Co de Phone Number [address] [phone] * ECHO AMANDO TRANSESOPHAGEAL (01/24/2018 4:49 PM CDT) Anatomical Region Laterality Modality Color Flow Doppl er 01/24/2018 6:25 AM CDT Narrative Procedure Note Rosalee Ivory MD - 04/24/2018 Ethan Hancock MD ECHOCARDIOGRAPHY RAD IANT * PTT [facility] (01/24/2018 3:40 PM CDT) Only the most [...] - COAGULATION O RDERABLES Performing Organization Address City/[facility]/[place] [address], [facility] [phone] * FIBRINOGEN ACTIVITY (01/24/2018 3:40 PM CDT) Only the most recent of2 resultswithin the time period is included. Fibrinogen Clauss 302 200 - 400 mg/dL 01/24/2018 4:16 PM CDT [facility] Blood BLOOD SPECIMEN / Unknown Venipuncture / Unknown 01/24/2018 3:40 PM CDT 01/24/2018 3:53 PM CDT Caryn Zhao PA-C LAB - COAGULATION O RDERABLES [facility] [address] [place] [address], [facility] [phone] * (ABNORMAL) BLOOD GASES ART COMPLETE [facility] OR (01/24/2018 1:45 PM CDT) Only the most recent of3 resultswithin the time period is included. pH Arterial 7.26(L) 7.35 - 7.45 01/24/2018 1:55 PM [facility] pCO2 Arterial 55(H) 35 - 45 mmHg 01/24/2018 1:55 PM [facility] pO2 Arterial 315(H) 71 - 95 mmHg 01/24/2018 1:55 PM [facility] HCO3 Arterial 24.2 22.0 - 26.0 mmol/L 01/24/2018 1:55 PM [facility] TCO2 Arterial 25.9 25.0 - 29.0 mmol/L 01/24/2018 1:55 PM [facility] Base Excess Arterial -3.1(L) -2.0 - 2.0 mmol/L 01/24/2018 1:55 PM [facility] Hemoglobin Arterial 9.5(L) 13.5 - 17.5 g/dL 01/24/2018 1:55 PM [facility] Oxyhemoglobin Arterial 98.1 95.0 - 100.0 % 01/24/2018 1:55 PM [facility] Carboxyhemoglobin 0.3 0.0 - 3.0 % 01/24/2018 1:55 PM [facility] Methemoglobin 0.2 0.0 - 2.0 % 01/24/2018 1:55 PM [facility] FI O2 Arterial 100.0 % 01/24/2018 1:55 PM [facility] Ionized Calcium Whole Blood 1.06 mmol/L 01/24/2018 1:55 PM [facility] Adjusted Ionized Calcium 0.99(L) 1.19 - 1.34 mmol/L 01/24/2018 1:55 PM [facility] Sodium Whole Blood 135 135 - 145 mmol/L 01/24/2018 1:55 PM [facility] Potassium Whole Blood 5.2 3.5 - 5.5 mmol/L 01/24/2018 1:55 PM [facility] Chloride Whole Blood 102 101 - 111 mmol/L 01/24/2018 1:55 PM [facility] Glucose Whole Blood 138(H) 70 - 110 mg/dL 01/24/2018 1:55 PM [facility] Lactic Acid Whole Blood 1.1 0.5 - 3.4 mmol/L 01/24/2018 1:55 PM [facility] Blood ARTERIAL BLOOD SPECIMEN / Unknown Venipuncture / Unknown 01/24/2018 1:45 PM CDT 01/24/2018 1:53 PM T Fabienne Cardona MD LAB - BLOOD GASES OR DERABLES Performing Organization Address City/State/[facility] Co de Phone Number [address] [phone] * (ABNORMAL) BLOOD GASES JOSEPH (01/24/2018 11:50 AM [facility]) pH Mixed Venous 7.31 7.30 - 7.40 01/24/2018 11:58 AM [facility] pCO2 Mixed Venous 50(H) 40 - 46 mmHg 01/24/2018 11:58 AM [facility] pO2 Mixed Venous 45(H) 35 - 42 mmHg 01/24/2018 11:58 AM [facility] HCO3 Mixed Venous 24.7 22.0 - 26.0 mmol/L 01/24/2018 11:58 AM [facility] TCO2 Mixed Venous 26.3 25.0 - 29.0 mmol/L 01/24/2018 11:58 AM [facility] Base Excess Venous -1.7 -2.0 - 2.0 mmol/L 01/24/2018 11:58 AM [facility] Hemoglobin Mixed Venous 9.3(L) 13.5 - 17.5 g/dL 01/24/2018 11:58 AM [facility] Oxyhemoglobin Mixed Venous 75.1 66.0 - 77.0 % 01/24/2018 11:58 AM CDT [facility] Carboxyhemoglobin Venous 0.6 0.0 - 3.0 % 01/24/2018 11:58 AM CDT [facility] Methemoglobin 0.5 0.0 - 2.0 % 01/24/2018 11:58 AM CDT [facility] FI O2 Mixed Venous 75.0 % 2017 11:58 AM CDT [facility] Blood BLOOD SPECIMEN / Unknown Venipuncture / Unknown 01/24/2018 11:50 AM CDT 01/24/2018 11:55 AM CDT Fabienne Cardona MD LAB - BLOOD GASES OR DERABLES [address] [phone] * PREPARE (CROSSMATCH) RBC UNIT(S), 4 Units (01/24/2018 7:31 AM CDT) Only the most recent of2 resultswithin the time period is included. Unit Description LR Red Cells [facility] B[facility]OD [facility] LAB Unit ABO O [facility] Unit Rh NEG [facility] Product Code RL1 [facility] Unit Number [id number] [facility] Unit Status Selected [facility] Product Number [id number] [facility] B LOOD [facility] Blood Type Barcode 9500 [facility] Unit Description LR Red Cells [facility] Unit ABO O [facility] Unit Rh NEG [facility] Product Code RL1 [facility] BLO OD BANK LAB Unit Number [id number] [facility] Unit Status Selected [facility] BLOO D BANK LAB Product Number [id number] [facility] B LOOD [facility] LAB Blood Type Barcode 9500 [facility] Product Code RL1 [facility] Unit Donor # [id number] 4 [facility] Unit Status released [facility] D [facility] Product Code RL1 [facility] OD [facility] LAB Unit Donor # [id number] [facility] B[facility]OD [facility] LAB Unit Status released [facility] BLOO D BANK LAB Blood Bank BLOOD SPECIMEN / Unknown 01/24/2018 7:31 AM CDT 01/24/2018 7:31 AM CDT Fabienne Cardona MD LAB - BLOOD BANK ORD ERABLES [facility] [address] * (ABNORMAL) URINALYSIS W/MICROSCOPIC NO CULTURE (01/11/2018 3:48 PM CDT) Color UA Yellow Straw, Yellow, Colorless, Light Yellow [facility] Clarity UA Clear Clear [facility] Specific [place] UA 1.019 1.001 - 1.030 [facility] pH UA 5.5 5.0 - 8.0 [facility] Protein UA Negative <=20 mg/dL [facility] Glucose UA Negative Negative mg/dL [facility] Ketone UA Negative Negative mg/dL [facility] Bilirubin UA Negative Negative mg/dL [facility] Blood UA Trace(A) Negative [facility] Nitrite UA Negative Negative [facility] Leukocyte Esterase Negative Negative [facility] Urobilinogen UA <2.0 <2.0 mg/dL [facility] RBC UA 2 0 - 8 /HPF [facility] WBC UA <1 0 - 2 /HPF [facility] Bacteria UA Rare Rare, Occasional, None /HPF [facility] Squamous Epithelial Cells UA <1 0 - 1 /HPF [facility] Mucus UA Rare(A) None /LPF [facility] Urine specimen (specimen) URINE SPECIMEN OBTAINED BY CLEAN CATCH PROCEDURE / Unknown 01/11/2018 3:48 PM CDT 01/11/2018 4:12 PM CDT Fabienne Cardona MD LAB - URINALYSIS ORD ERABLES [address] [phone] * VAS CAROTID DUPLEX BILATERAL (12/21/2017 2:[address] OPER[address]) Anatomical Region Laterality Modality Other Fabienne Cardona MD VASCULAR LAB ORDERAB LES * CT CHEST WO CONTRAST (12/21/2017 1:[address] OPERATOR) Anatomical Region Laterality Modality Chest Other Impressions 12/21/2017 5:[address] OPER[address] IMPRESSION: 1. Mildly dilated/ectatic aortic root measuring 4.1 cm in diameter. No significant atherosclerotic calcifications at the aortic root. 2. Multiple right upper lobe subpleural nodules measuring up to 3 mm. If the patient is high risk, follow-up CT is optional at 12 months. If the patient is low risk, no follow-up is required. Dictated by Yeyo Birmingham M.D. (radiology orderly) without I, Dr. Lobito VAZQUEZ M.D. have personally reviewed and interpreted this examination/study. This report was electronically signed by Lobito VAZQUEZ M.D. on 12/21/2017 5:14 PM . Narrative 12/21/2017 5:[address] OPERATOR EXAMINATION: Computed tomography (CT) of the chest [...] required. Dictated by Yeyo Birmingham M.D. (radiology orderly) bradley Jules, Dr. Lobito VAZQUEZ M.D. have personally reviewed and interpreted thisexamination/study. This report was electronically signed by Lobito VAZQUEZ M.D. on12/21/2017 5:14 PM . Fabienne Cardona MD CT ORDERABLES * XR CHEST 2VW (12/21/2017 1:33 PM [address]CAR OPERATOR) Anatomical Region Laterality Modality Chest Other Impressions 12/21/2017 3:[address] OPERATOR IMPRESSION: No acute pulmonary process. Dictated by Airam Gibson MD (radiology orderly). This report was approved by Airam Gibson on 12/21/2017 2:[address] ARGENTINA Jules M.D. have personally reviewed and interpreted this examination/study. This report was electronically signed by ARGENTINA MARTIN M.D. on 12/21/2017 3:42 PM . Narrative 12/21/2017 3:[address] OPERATOR EXAMINATION: XR CHEST PA AND LATERAL HISTORY: [...] process. Dictated by Airam Gibson MD (radiology orderly). This report was approved by Airam Gibson on 12/21/2017 2:[address] ARGENTINA Jules M.D. have personally reviewed and interpreted thisexamination/study. This report was electronically signed by ARGENTINA MARTIN M.D. on 12/21/20173:42 PM . Fabienne Cardona MD DIAGNOSTIC IMAGING O RDERABLES * CCL CATH LEFT HEART ARTERY VENTRICLE (11/16/2017 11:[address]CAR OPERATOR) Anatomical Region Laterality Modality X-Ray Angiograph y Narrative 12/06/2017 9:57 AM [facility] Cardiac Catheterization Procedure Note Patient: Raza Vazquez Age: 57 y.o. Date of : 1960 Date of Admission: 11/16/17 Procedure Date: 11/16/17 FELLOW / HARDWARE ENGINEER: Kavon Daley MD ATTENDING PHYSICIAN: Ofelia [...] evaluation, please review the evaluation forms in [facility]. For details on monitored clinical parameters during the intra-service sedation time, please review the procedure nurse documentation in [facility]. COMPLICATIONS: none HEMODYNAMIC FINDINGS: AO: 117/70 mmHg [...] Procedure Note Ofelia Johnson MD - 03/22/2018 [facility] Cardiac Catheterization Procedure Note Patient: Raza Vazquez Age: 57 y.o. Date of : 1960 Date of Admission: 11/16/17 Procedure Date: 11/16/17 FELLOW / HARDWARE ENGINEER: Kavon Daley MD ATTENDING PHYSICIAN: Ofelia [...] patient evaluation,please review the evaluation forms in [facility]. For details on monitoredclinical parameters during the intra-service sedation time, please reviewthe procedure nurse documentation in [facility]. COMPLICATIONS: none HEMODYNAMIC FINDINGS: AO: 117/70 mmHg [...] Ofelia Johnson MD Jeffrey Jo MD CARDIAC HARD CANDY BATCH MIXER RAD IANT * ECHO W DOPPLER AND COLOR FLOW (11/16/2017 12:00 [address]CAR OPERATOR) Anatomical Region Laterality Modality Other 11/16/2017 Jeffrey Jo MD ECHOCARDIOGRAPHY RAD IANT * PROC CARDIOLYTE STRESS TEST (11/06/2017 12:[address] OPERATOR) Narrative [facility] - 11/06/2017 12:51 [address] OPERATOR Patient Name: Raza Vazquez : 1960 CPT Codes: 60909 Study: Exercise Myocardial Perfusion - One Day [...] Name: Raza Vazquez : 1960 CPT Codes: 11475 Study: Exercise Myocardial Perfusion - One Day [...] Lisy R Shara DAVIS ECG ORDERABLE S [facility] * PROC STRESS TEST EXERCISE (11/02/2017 5:[address] OPERATOR) Narrative [facility] - 11/02/2017 5:23 [address] OPERATOR Patient Name: Raza Vazquez Patient : 1960 CPT Codes: 90293 Study: Exercise Treadmill Electrocardiogram Date of Procedure: [...] Name: Raza Vazquez Patient :1960 CPT Codes: 90726 Study: Exercise Treadmill Electrocardiogram Date of Procedure: [...] because of dyspnea. Standing rest heart rate [id number] and rest blood pressure was 138/88mmHg. 3. [...] 11/02/2017 Lisy Olmedo MD ECG ORDERABLE S [facility] * PROSTATE SPECIFIC ANTIGEN SCREEN (09/18/2014 9:18 [address]CAR OPERATOR) PSA Total 1.4 < OR = 4.0 ng/mL [facility] ([facility]) Comment: This test was performed using the Siemens chemiluminescent method. Values obtained from different assay methods cannot be used interchangeably. PSA levels, regardless of value, should not be interpreted as absolute evidence of the presence or absence of disease. Test Performed at: [facility] [address] [place] [address] EH PURVIS DO,MPH Venous blood specimen (specimen) 09/18/2014 9:[address]CAR OPERATOR 09/18/2014 9:19 [address]CAR OPERATOR Lisy Olmedo MD LAB - SALAD BAR CLERK RY ORDERABLES [facility]) Care Teams Sound Controller Relationship Specialty Start Date End Date Kiana Cole MD [address] [place] [address] PCP - General Internal Medicine 09/16/24 Sylvain Daniels MD Family Medicine 02/15/24
--- OUTSIDE RECORDS SUMMARY | 2024-11-25 23:43 | XMS_ITS | Encounter Summary ---
Author Organization [facility] Health Address [address] [place] [address] Care Team Providers Care Supervisor Gas Meter Repair Name Role Phone Lisy Olmedo MD Primary Care Provide r Encounter Details Date Type Department Care Team (Latest Contact Info) Description 01/29/2018 2:26 PM CDT Hospital Encounter [facility] [address] [place] [id number] Ruby Valdez MD [facility] [address] [place] [phone] [facility] Social History Tobacco Use [...] Recorded Patient Health Questionnaire-2 Score 0 09/17/2024 [facility] of Occupat ional Health - Occupational Stress [...] Coronavirus/COVID-19? No / Unsure 10/18/2022 9:47 AM DIRECTOR OF FINANCIAL PLANNING documented as of this encounter Plan of Treatment Upcoming Encounters Date Type Department Care Team (Late st Contact Info) Description 11/28/2024 9:00 AM DIRECTOR OF FINANCIAL PLANNING Office Visit [facility] - Neurology [address] [facility], [place] [address] Aline Finch MD [address] [place] [address] 02/10/2025 10:00 AM CDT Office Visit [facility] - Cardiology [address] [facility], [address] [address] Curly Lay MD [address] [place] [address] documented as of this encounter Visit Diagnoses Not on filedocumented in this encounter Additional Health Concerns Infection Onset Date Last Indicated Resolved Time COVID-19 Under Investigation 07/26/2022 07/26/2022 07/26/2022 5:54 PM CDT COVID-19 Under Investigation 04/10/2024 04/10/2024 04/10/2024 2:48 PM CDT documented as of this encounter Care Teams Supervisor Gas Meter Repair Relationship Specialty Start Date End Date Lisy Olmedo MD PCP - General 04/20/09 05/09/22 documented as of this encounter
--- OUTSIDE RECORDS SUMMARY | 2024-11-25 23:43 | XMS_ITS | Referral Summary ---
Author Organization [facility] Address [address] [place] [address] Care Team Providers Care Corporate Sales Manager Name Role Phone Sylvain Daniels MD Unavailable [phone] Kiana Cole MD Primary Care Provider Source Comments [facility],non-owned Affiliates and Associated Physician Practices is amultiple site organization consisting of ambulatory clinics and hospital sitesin [place], [place], [place] and [place]. This disclosure is being madepursuant to the Care Everywhere program and may not contain all information available regarding this patient. Last updated 18.[facility] Encounters Date Type Department Care Team Description 11/14/2024 Nurse Triage [facility] [address] [facility], [facility] [address] [place] [address] Kiana Cole MD Update 11/11/2024 Telephone [facility] [address] [facility], [address] [address] Kiana Cole MD Opened In Error 11/07/2024 Nurse Triage [facility] [address] [facility], [address] [place] [address] Kiana Cole MD Order 10/28/2024 Travel 10/14/2024 Nurse Triage [facility] [address] [facility], [facility] [address] [place] [address] Kiana Cole MD Order 10/02/2024 Nurse Triage [facility] [address] [facility], [address] [place] [address] Kiana Cole MD Forms 10/02/2024 Nurse Triage [facility] [address] [facility], [address] [place] [address] Kiana Cole MD Constipation (/) 09/25/2024 Nurse Triage [facility] [address] [facility], [facility] [address] [place] [address] Kiana Cole MD Update; Home Health 09/17/2024 Travel 09/17/2024 8:00 AM GLASS LINED TANK REPAIRER Office Visit [facility] [address] [place] [address], [address] [phone] Kiana Cole MD Cerebrovascular accident (CVA), unspecified mechanism (HCC) (Primary Dx); Coronary artery disease involving [place] heart without angina pectoris, unspecified vessel or lesion type; S/P CABG x 3; Essential hypertension; Type 2 diabetes mellitus without complication, with long-term current use of insulin (HCC); Mild persistent asthma without complication (HCC) 08/29/2024 Travel 08/29/2024 9:00 AM GLASS LINED TANK REPAIRER Office Visit [facility] - Neurology [address] [facility], [facility] [place] [address] Farhat Enamorado MD Cerebrovascular accident (CVA), unspecified [...] with long-term current use of insulin 05/21/2024 penitentiary (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 Mika EATON et al. RAFFI. 2013;310(19): 0465-7365 (http://education.Fonemesh.Active Circle/faq/HSF256) CHOL/HDLC RATIO <5.0 (calc) 5.3High Non HDL [...] needs weight loss desperately and referred to telesales manager asked him to stop naproxen Atherosclerosis of [...] Recorded Patient Health Questionnaire-2 Score 0 09/17/2024 [facility] of Occupat ional Health - Occupational Stress [...] in a senior care (including now)? No 05/26/2024 Education Answer Date [...] Comments Blood Pressure 124/83 09/17/2024 8:17 AM GLASS LINED TANK REPAIRER Pulse 101 09/17/2024 8:17 AM GLASS LINED TANK REPAIRER Temperature 35.8 C (96.5 F) 09/17/2024 8:17 AM GLASS LINED TANK REPAIRER Respiratory Rate 10 08/29/2024 8:44 AM GLASS LINED TANK REPAIRER Oxygen Saturation 96% 09/17/2024 8:17 AM GLASS LINED TANK REPAIRER Inhaled Oxygen Concentration 21% 02/15/2024 3 :17 PM CDT Weight 120.2 kg (265 lb) 09/17/2024 8:17 AM GLASS LINED TANK REPAIRER Height 193 cm (6' 4 ) 09/17/2024 8:17 AM GLASS LINED TANK REPAIRER Body Mass Index 32.26 09/17/2024 8:17 AM GLASS LINED TANK REPAIRER Functional Status Functional Status Response Date of [...] st Contact Info) Description 11/28/2024 9:00 AM GLASS LINED TANK REPAIRER Office Visit [facility] - Neurology [address] [facility] [place] [address] Aline Finch MD [address] [place] [address] 02/10/2025 10:00 AM CDT Office Visit [facility] - Cardiology [address] [facility], [facility] [address] [place] [address] Curly Lay MD [address] [facility] [address] [place] [address] Procedures Procedure Name Priority Date/Time Associated Diagnosis Comments HEMOGLOBIN A1C - POINT OF CARE (AMB) [facility] Routine 09/17/2024 9:38 AM GLASS LINED TANK REPAIRER Type 2 diabetes mellitus without complication, with long-term current use of insulin (HCC) EYE EXAM 08/11/2024 BASIC METABOLIC PANEL (CALCIUM TOTAL) Routine 06/04/2024 11:30 AM CDT ENDOSCOPY, COLON, SCREENING Routine 11/12/2020 12:12 PM GLASS LINED TANK REPAIRER MICROALB/CREAT RATIO URINE RANDOM PANEL 07/23/2020 6:49 AM CDT HEPATITIS C AB W/RFLX TO HCV RNA QN PCR 07/23/2020 6:49 AM CDT from Last 3 Months or Most Recently Relevant to Health Maintenance Results * (ABNORMAL) HEMOGLOBIN A1C - POINT OF CARE (AMB) [facility] (09/17/2024 9:38 AM GLASS LINED TANK REPAIRER) Hemoglobin A1c POCT 6.2(A) 4.2 - 5.8 % QC Verified Yes Yes Blood BLOOD SPECIMEN / Unknown 09/17/2024 9:38 AM GLASS LINED TANK REPAIRER Kiana Cole MD LAB - POINT OF CARE ORDERABLES * EYE EXAM (08/11/2024) Anatomical Region Laterality Modality Other Narrative 08/11/2024 Ordered by an unspecified provider. Scanned Document SCANNING ONLY * (ABNORMAL) BASIC METABOLIC PANEL (CALCIUM TOTAL) (06/04/2024 11:30 AM CDT) BUN 18 7 - 26 mg/dL 06/04/2024 12:27 PM [facility] Creatinine 0.78 0.71 - 1.16 mg/dL 06/04/2024 12:27 PM [facility] Sodium 135(L) 136 - 145 mmol/L 06/04/2024 12:27 PM [facility] Potassium 4.1 3.5 - 4.5 mmol/L 06/04/2024 12:27 PM [facility] Chloride 102 98 - 107 mmol/L 06/04/2024 12:27 PM [facility] CO2 25 22 - 29 mmol/L 06/04/2024 12:27 PM [facility] Glucose 138(H) 70 - 115 mg/dL 06/04/2024 12:27 PM [facility] Calcium 9.6 8.4 - 10.2 mg/dL 06/04/2024 12:27 PM [facility] Anion Gap 8 6 - 16 06/04/2024 12:27 PM [facility] BUN/Creatinine Ratio 23 7 - 23 06/04/2024 12:27 PM [facility] Osmolality Calculated 284 275 - 295 mOsm/kg 06/04/2024 12:27 PM [facility] eGFR by CKD-EPI >90 >=90 mL/min/1.7 3 m2 06/04/2024 12:27 PM [facility] Blood BLOOD SPECIMEN / Unknown Lab Venipuncture / Unknown 06/04/2024 11:30 AM CDT 06/04/2024 11:51 AM CDT Jason Coppola MD LAB - CHEMISTRY [facility] Organization Address City/State/ZIP Co de Phone Number [address] [address], [facility] [phone] * ENDOSCOPY, COLON, SCREENING (11/12/2020 12:12 PM GLASS LINED TANK REPAIRER) Report Endoscopy POC Endoscopy Department Report _ [...] colon K64.8, Other hemorrhoids CPT copyright 2019 [employer]. All rights reserved. The codes documented in this report are preliminary and upon naval special warfare medic review may be revised to meet current compliance requirements. Jodi Vernon MD 11/12/2020 12:57:40 PM Note Initiated On: 11/12/2020 12:12 PM Number of Addenda: [address] [address] [facility] 11/12/2020 12:1 2 PM GLASS LINED TANK REPAIRER Jodi Vernon MD GI PROCEDURE ORDER GISSEL [facility] MATTHEW * HEPATITIS C AB W/RFLX TO [...] a test for HCV RNA (test code 92780) is suggested. For additional information please refer to http://education.Táximo/faq/LPT59o2 (This link is being provided for informational/ educational purposes only.) Test Performed at: [facility] [id number] [facility] [employer] [facility] [id number] EH PURVIS DO,MPH 07/23/2020 6:49 AM CDT 07/23/2020 6:51 AM CDT Lisy Olmedo MD LAB - WHEEL POLISHER RY ORDERABLES Performing Organization Address [facility] Co de Phone Number [facility] [address] [place] [address] * MICROALB/CREAT RATIO URINE RANDOM PANEL (07/23/2020 [...] within a diagnostic category. Test Performed at: [facility] [id number] [facility] [id number] EH PURVIS DO,MPH 07/23/2020 6:49 AM CDT 07/23/2020 6:51 AM CDT Lisy Olmedo MD LAB - URINE C HEMISTRY ORDERABLES [facility] [address] [place] [address] from Last 3 Months or Most Recently Relevant to Health Maintenance Advance Directives Documents on File Type Date Recorded Patient Television Engineer Expl anation Durable HCPOA 09/17/2024 4:08 [...] Communication Jenn (POA) Rafi Sister Power of Coal Chemist (P OA) Care Teams Corporate Sales Manager Relationship Specialty Start Date End Date Kiana Cole MD [address] [place] [address] PCP - General Internal Medicine 09/16/24 Sylvain Daniels MD Family Medicine 02/15/24
--- OUTSIDE RECORDS SUMMARY | 2024-11-25 23:44 | XMS_ITS | Encounter Summary ---
Author Organization [facility] Health Address [address] [facility] [place] [address] Care Team Providers Care Clinical Data Assistant Name Role Phone Sylvain Daniels MD Unavailable [phone] Kiana Cole MD Primary Care Provider Sean Kyle MD Primary Care Provider [phone] Kiana Cole MD Primary Care Provider Reason for Visit * Reason Onset Date Comments Future Appointment 06/10/2024 Encounter Details Date Type Department Care Team (Late st Contact Info) Description 06/10/2024 Telephone [facility] - Cardiology [address] [facility], [place] [address] [place] [address] Andrae Norton MD [address] [facility] [place] [address] Future Appointment Social History Tobacco [...] Recorded Patient Health Questionnaire-2 Score 0 06/04/2024 [facility] of Occupat ional Health - Occupational [...] st Contact Info) Description 11/28/2024 9:00 AM FRETTED INSTRUMENTS INSPECTOR [facility] [address] [facility] [place] [address] Aline Finch MD [address] [place] [address] 02/10/2025 10:00 AM CDT Office Visit [facility] - Cardiology [address] [facility], [facility] [address] [place] [address] Curly Lay MD [address] [facility] [address] [place] [address] documented as of this encounter Visit Diagnoses Not on filedocumented in this encounter Care Teams Clinical Data Assistant Relationship Specialty Start Date End Date Kiana Cole MD [address] [place] [address] PCP - General Internal Medicine 05/22/24 08/04/24 Sean Kyle MD [address] [place] [address] PCP - General Internal Medicine 08/05/24 09/15/24 Kiana Cole MD [address] [place] [address] PCP - General Internal Medicine 09/16/24 Sylvain Daniels MD Family Medicine 02/15/24 documented as of this encounter
--- OUTSIDE RECORDS SUMMARY | 2024-11-25 23:44 | XMS_ITS | Clinical Summary ---
Author Organization [facility] Address [address] [address] Care Team Providers Care Climatology Teacher Name Role Phone Sylvain Daniels MD Unavailable [phone] Kiana Cole MD Primary Care Provider Source Comments [facility],non-owned Affiliates and Associated Physician Practices is amultiple site organization consisting of ambulatory clinics and hospital sitesin [place], [place], [place] and [place]. This disclosure is being madepursuant to the Care Everywhere program and may not contain all information available regarding this patient. Last updated 18.[facility] Allergies Active Allergy Reactions Criticality [...] with long-term current use of insulin 05/21/2024 long-term (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 05/21/2024 GERD (gastroesophageal [...] of LDL-C. Mika SS et al. RAFFI. 2013;310(96): 6187-7193 (http://education.[employer].[facility]/faq/EBW027) CHOL/HDLC RATIO <5.0 (calc) 5.3High Non HDL [...] needs weight loss desperately and referred to power barker operator asked him to stop naproxen Atherosclerosis of [...] Department Care Team Description 11/14/2024 Nurse Triage [facility] Family [facility] [address], [address] [place] [address] Kiana Cole MD Update 11/11/2024 Telephone [facility] Family Medicine [address] [facility], [facility] [address] [place] [address] Kiana Cole MD Opened In Error 11/07/2024 Nurse Triage [facility] Family Medicine [address], [address] [place] [address] Kiana Cole MD Order 10/28/2024 Travel 10/14/2024 Nurse Triage [facility] [address], [address] [place] [address] Kiana Cole MD Order 10/02/2024 Nurse Triage [facility] [address], [facility] [address] [place] [address] Kiana Cole MD Forms 10/02/2024 Nurse Triage [facility] [address], [facility] [address] [place] [address] Kiana Cole MD Constipation (/) 09/25/2024 Nurse Triage [facility] [address], [address] [address] Kiana Cole MD Update; Home Health 09/17/2024 8:00 AM SCHOOL OFFICE MANAGER Office Visit [facility] [address] [place] [address], [address] [phone] Kiana Cole MD Cerebrovascular accident (CVA), unspecified mechanism (HCC) (Primary Dx); Coronary artery disease involving ambler heart without angina pectoris, unspecified vessel or lesion type; S/P CABG x 3; Essential hypertension; Type 2 diabetes mellitus without complication, with long-term current use of insulin (HCC); Mild persistent asthma without complication (HCC) 09/17/2024 Travel 08/29/2024 9:00 AM SCHOOL OFFICE MANAGER Office Visit [facility] - Neurology [address] [facility] [place] [phone] Farhat Enamorado MD Cerebrovascular accident (CVA), unspecified [...] Recorded Patient Health Questionnaire-2 Score 0 09/17/2024 [facility] of Occupat ional Health - Occupational Stress [...] Comments Blood Pressure 124/83 09/17/2024 8:17 AM SCHOOL OFFICE MANAGER Pulse 101 09/17/2024 8:17 AM SCHOOL OFFICE MANAGER Temperature 35.8 C (96.5 F) 09/17/2024 8:17 AM SCHOOL OFFICE MANAGER Respiratory Rate 10 08/29/2024 8:44 AM SCHOOL OFFICE MANAGER Oxygen Saturation 96% 09/17/2024 8:17 AM SCHOOL OFFICE MANAGER Inhaled Oxygen Concentration 21% 02/15/2024 3 :17 PM CDT Weight 120.2 kg (265 lb) 09/17/2024 8:17 AM SCHOOL OFFICE MANAGER Height 193 cm (6' 4 ) 09/17/2024 8:17 AM SCHOOL OFFICE MANAGER Body Mass Index 32.26 09/17/2024 8:17 AM SCHOOL OFFICE MANAGER Plan of Treatment Upcoming Encounters Date Type Department Care Team (Late st Contact Info) Description 11/28/2024 9:00 AM SCHOOL OFFICE MANAGER Office Visit [facility] - Neurology [facility] [facility] [place] [phone] Aline Finch MD [address] [place] [address] 02/10/2025 10:00 AM CDT Office Visit [facility] - Cardiology [address], [facility] [address] [place] [address] Curly Lay MD [address] [facility] [address] [place] [address] Health Maintenance Due Date Last Done Comments [...] CARE (AMB) [facility] Routine 09/17/2024 9:38 AM SCHOOL OFFICE MANAGER Type 2 diabetes mellitus without complication, with long-term current use of insulin (HCC) EYE EXAM 08/11/2024 BASIC METABOLIC PANEL (CALCIUM TOTAL) Routine 06/04/2024 11:30 AM CDT ENDOSCOPY, COLON, SCREENING Routine 11/12/2020 12:12 PM SCHOOL OFFICE MANAGER MICROALB/CREAT RATIO URINE RANDOM PANEL 07/23/2020 6:49 AM CDT HEPATITIS C AB W/RFLX TO HCV RNA QN PCR 07/23/2020 6:49 AM CDT from Last 3 Months or Most Recently Relevant to Health Maintenance Results * (ABNORMAL) HEMOGLOBIN A1C - POINT OF CARE (AMB) [facility] (09/17/2024 9:38 AM SCHOOL OFFICE MANAGER) Hemoglobin A1c POCT 6.2(A) 4.2 - 5.8 % QC Verified Yes Yes Blood BLOOD SPECIMEN / Unknown 09/17/2024 9:38 AM SCHOOL OFFICE MANAGER Kiana Cole MD LAB - POINT OF CARE ORDERABLES * EYE EXAM (08/11/2024) Anatomical Region Laterality Modality Other Narrative 08/11/2024 Ordered by an unspecified provider. Scanned Document SCANNING ONLY * (ABNORMAL) BASIC METABOLIC PANEL (CALCIUM TOTAL) (06/04/2024 11:30 AM CDT) [facility] BUN 18 7 - 26 mg/dL 06/04/2024 [...] Organization Address City/State/ZIP Co de Phone Number [facility] [address] [place] [address], [facility] [phone] * ENDOSCOPY, COLON, SCREENING (11/12/2020 12:12 PM SCHOOL OFFICE MANAGER) Report Endoscopy POC Endoscopy Department Report [...] colon K64.8, Other hemorrhoids CPT copyright 2019 [employer]. All rights reserved. The codes documented in this report are preliminary and upon drop forge operator review may be revised to meet current compliance requirements. Jodi Vernon MD 11/12/2020 12:57:40 PM Note Initiated On: 11/12/2020 12:12 PM Number of Addenda: [address] [employer]ATION 11/12/2020 12:1 2 PM SCHOOL OFFICE MANAGER Jodi Vernon MD GI PROCEDURE ORDER GISSEL Performing Organization Address City/State/[facility] Co de Phone Number [facility] * HEPATITIS C AB W/RFLX TO HCV RNA QN PCR (07/23/2020 6:49 AM CDT) Hepatitis C Antibody NON-REACTI VE NON-REACT ELIDA [employer] Signal to Cut-Off 0.09 <1.00 [employer] Comment: HCV antibody was non-reactive. There is no laboratory evidence of HCV infection. In most cases, no further action is required. However, if recent HCV exposure is suspected, a test for HCV RNA (test code 74783) is suggested. For additional information please refer to http://education.Delivered/faq/QPS06z8 (This link is being provided for informational/ educational purposes only.) Test Performed at: [facility] [id number] EH PURVIS DO,MPH 07/23/2020 6:49 AM CDT 07/23/2020 6:51 AM CDT Lisy Olmedo MD LAB - PAINTER AND GRADER CORK RY ORDERABLES Performing Organization Address [facility] Co de Phone Number [facility] [address] [place] [address] * MICROALB/CREAT RATIO URINE RANDOM PANEL (07/23/2020 6:49 AM CDT) Creatinine Urine 270 20 - 320 mg/dL [employer] Microalbumin Urine 6.0 mg/dL [facility] Comment: Reference [...] within a diagnostic category. Test Performed at: [facility] [id number] EH PURVIS DO,MPH 07/23/2020 6:49 AM CDT 07/23/2020 6:51 AM CDT Lisy Olmedo MD LAB - URINE C HEMISTRY ORDERABLES [facility] [address] [place] [address] from Last 3 Months or Most Recently Relevant to Health Maintenance Advance Directives Documents on File Type Date Recorded Patient Scrap Preparation Supervisor Expl anation Durable HCPOA 09/17/2024 4:08 PM [...] Communication Jenn (POA) Mckee Sister Power of Repair Mechanic (P OA) Care Teams Climatology Teacher Relationship Specialty Start Date End Date Kiana Cole MD [address] [place] [address] PCP - General Internal Medicine 09/16/24 Sylvain Daniels MD Family Medicine 02/15/24
[2024-11-26] VITALS (33 sets, daily range): BP systolic 100–142; BP diastolic 68–85; PULSE 60–97; RESP 14–34; TEMP 36.4–37.7; O2SAT 94–100; BMI 32.2
--- NOTE | 2024-11-26 00:29 | ED_ITS ---
HPI - URI/Sore Throat General Chief Complaint: Upper Respiratory Infection Stated Complaint: lethargy, cough, stroke in january Time Seen by Provider: 11/25/24 23:35 Source: patient and family (Sister's) Mode of arrival: EMS History of Present Illness HPI Narrative: Patient presents with report of lethargy and a cough that is a little productive. His symptoms started last night. He has a history of a stroke occurring in January of last year that has left him weak on the right side and with some speech deficits. No chest pain or shortness of breath. History of open heart surgery. He has felt chilled. No nausea or vomiting. He did have a large diarrheal stool as EMS had arrived and presents to the emergency department sold. Was reportedly diaphoretic per EMS. He has been trialing [id number] cough and decongestant medication his last dose at 1:30 a.m.. He denies any abdominal pain. Has not recently been on antibiotics. Related Data Home Medications ?Medication ?Instructions ?Recorded ?Confirmed ?Last Taken ?Type albuterol sulfate 2.5 mg/3 mL 2.5 mg inhalation Q4H PRN 06/04/24 06/04/24 Unknown History (0.083 %) solution for nebulization Shortness Of Breath Or Wheezing Allergies Allergy/AdvReac Type Severity Reaction Status Date / Time lisinopril Allergy Unknown Verified 11/25/24 20:53 penicillin G Allergy Swelling Verified 11/25/24 20:53 [facility] Past Medical History Medical History CVA (cerebral vascular accident) January 2024 History of coronary artery disease Diabetes mellitus Hypertension Basilar artery stenosis Balance disorder 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 HEAD: Normocephalic, atraumatic. EYES: Non injected, non icteric. Left eye covered with patch is a live stroke. ENT: Nares clear, no rhinorrhea or epistaxis. NECK: Supple. CHEST: Speaking in full sentences. No respiratory distress. Lungs clear to auscultation. HEART: Regular rate and rhythm. . ABDOMEN: Soft, nondistended. Nontender to palpation. No rigidity or guarding SKIN: Warm, dry, no rash. NEURO: Left sided weakness. Alert and oriented x3. Dysarthric, chronic per family. PSYCH: Normal mood and affect. Course Vital Signs Vital signs: Vital Signs Temperature 102.5 F H 11/25/24 20:46 Pulse Rate 93 11/25/24 20:46 Respiratory Rate 15 11/25/24 20:46 Blood Pressure 133/74 11/25/24 20:46 Pulse Oximetry 97 11/25/24 20:46 Oxygen Delivery Room Air 11/25/24 20:46 Temperature 99.1 F 11/26/24 02:14 Pulse Rate 64 11/26/24 05:16 Respiratory Rate 23 H 11/26/24 05:16 Blood Pressure 117/70 11/26/24 05:16 Pulse Oximetry 96 11/26/24 05:16 Oxygen Delivery Room Air 11/26/24 01:34 MDM - URI/Sore Throat MDM Narrative Medical decision making narrative: Patient presents with report of lethargy and cough that started last night. He has been chilled and had a large diarrheal stool. In the emergency department he is afebrile with a temperature of a 102.5? F but all other vital signs are within normal limits. Leukocytosis. He has a normocytic anemia which is stable from previous. Baseline kidney function essentially unchanged from previous. Fever has defervesced. He he is mildly hypomagnesemic. Initial plan/option was discussed patient to return to his house. His sister with whom he lives expresses concern for how weak he has been. They brought the quit and he uses to ambulate at home, i.e. his walker and other assist devices to perform an ambulation/gait assessment. Is reported by techs the patient does poorly and is very weak. Given patient's high risk of falls, patient will be admitted as an observation admission. Is in agreement and verifies understanding. Family confirms that his code status is full code. Discussed with hospitalist on-call. Stable for [facility] bed. Differential Diagnosis Differential diagnosis: Likely upper respiratory infection, viral infection, bronchitis, influenza, pharyngitis and other (Pneumonia) Lab Data Attestation: I reviewed the patient's lab results. 11/26/24 01:32 11/26/24 01:32 Labs: Lab Results 11/25/24 11/26/24 11/26/24 Range/Units 20:53 01:31 01:32 WBC 11.5 H (4.5-10.0) K/mm3 RBC 4.10 L (4.6-6.20) M/mm3 Hgb 10.7 L (14.0-18.0) g/dL Hct 34.7 L (42.0-52.0) % MCV 84.6 (80-100) fl MCH 26.1 (26-34) pg MCHC 30.8 L (32-36) g/dl RDW 15.9 H (11.5-14.5) % Plt Count 214 (150-375) k/mm3 MPV 9.9 (7.4-10.4) fl Immature Gran % (Auto) 0.4 (0-0.5) % Neut % (Auto) 85.0 H (45.5-73.1) % Lymph % (Auto) 6.6 L (18.3-44.2) % Summers % (Auto) 7.7 (2.6-8.5) % Eos % (Auto) 0.1 (0-4.4) % Baso % (Auto) 0.2 (0.2-1.2) % Lymph # (Auto) 0.75 L (0.9-3.2) K/mm3 Summers # (Auto) 0.9 H (0.1-0.6) K/mm3 Eos # (Auto) 0.0 (0-0.3) K/mm3 Baso # (Auto) 0.0 (0.0-0.1) K/mm3 Abs Immat Gran (auto) 0.05 H (0.00-0.031) K/mm3 Absolute Neuts (auto) 9.7 H (1.3-6.7) K/mm3 Absolute Nucleated RBC 0.000 (0.0-0.012) K/mm3 Nucleated RBC % 0.0 (0.0-0.2) % Sodium 139 (137-145) mmol/L Potassium 4.1 (3.4-5.0) mmol/L Chloride 102 (98-107) mmol/L Carbon Dioxide 24 (22-30) mmol/L Anion Gap 13 H (4-12) mmol/L BUN 25 H (9-20) mg/dL Creatinine 1.34 H (0.7-1.3) mg/dL Estim Creat Clear Calc 69 ml/min Estimated GFR > 60 (59 - ) Glucose 127 H (65-110) mg/dL Calcium 8.8 (8.4-10.2) mg/dL Magnesium 1.4 L (1.6-2.3) mg/dL Total Bilirubin 0.4 (0.2-1.3) mg/dL AST 25 (17-59) U/L ALT 23 (6-50) U/L Alkaline Phosphatase 62 (38-126) U/L Total Protein 8.0 (6.3-8.2) g/dL Albumin 3.9 (3.5-5.1) g/dL Urine Color Dark yellow (Yellow) Urine Appearance Cloudy H (Clear) Urine pH 5.0 (5.0-9.0) Ur Specific Gray 1.025 (1.001-1.035) Urine Protein 2+ H (Negative) mg/dL Urine Glucose (UA) Negative (Negative) mg/dL Urine Ketones Trace H (Negative) mg/dL Ur Blood (Man) Negative (Negative) Urine Nitrate Negative (Negative) Urine Bilirubin Negative (Negative) Urine Urobilinogen 1.0 (<2.0) mg/dL Leukocyte Esterase Rfl Negative (Negative) PRIMITIVO/UL Urine RBC 3-5 H (0-2) /hpf Urine WBC 0-5 (0-3) /hpf Ur Squamous Epith Cells None seen (Few) /hpf Urine Bacteria None seen /hpf Urine Casts 11-20 Influenza A (RT-PCR) Negative (Negative) Influenza B (RT-PCR) Negative (Negative) RSV (RT-PCR) Negative (Negative) SARS-CoV-2 RNA (RT-PCR) Positive A (Negative) Imaging Data Attestation: I personally reviewed and interpreted this imaging study as follows: My impression: Sternotomy wires in cardiomegaly on my independent interpretation of chest x- ray. Discharge Plan Discharge Clinical Impression: Leukocytosis, Normocytic anemia, COVID-19, Hypomagnesemia, Generalized weakness Patient Disposition: Still a Patient Condition: Stable
[2024-11-26] MEDS: ACETAMINOPHEN 500 MG TABLET 1000 MG PO (01:24)
[2024-11-26 01:51] LABS: Basophils Percent Auto 0.2 % (0.2-1.2); Eosinophils Percent Auto 0.1 % (0-4.4); Hematocrit 34.7 % (42.0-52.0); Hemoglobin 10.7 g/dL (14.0-18.0); Immature Granulocyte Absolute 0.05 K/mm3 (0.00-0.031); Immature Granulocyte Percent A 0.4 % (0-0.5); Lymphocytes Absolute Auto 0.75 K/mm3 (0.9-3.2); Lymphocytes Percent Auto 6.6 % (18.3-44.2); Mean Corpuscular HGB Conc 30.8 g/dl (32-36); Mean Corpuscular Hemoglobin 26.1 pg (26-34); Mean Corpuscular Volume 84.6 fl (80-100); Mean Platelet Volume 9.9 fl (7.4-10.4); Monocytes Absolute Auto 0.9 K/mm3 (0.1-0.6); Monocytes Percent Auto 7.7 % (2.6-8.5); Neutrophils Absolute Auto 9.7 K/mm3 (1.3-6.7); Platelet Count Result 214 k/mm3 (150-375); Red Cell Distribution Width 15.9 % (11.5-14.5); White Blood Count 11.5 K/mm3 (4.5-10.0)
[2024-11-26 02:05] LABS: Alanine Aminotransferase 23 U/L (6-50); Albumin Level 3.9 g/dL (3.5-5.1); Alkaline Phosphatase 62 U/L (38-126); Anion Gap 13 mmol/L (4-12); Aspartate Amino Transferase 25 U/L (17-59); Bilirubin,Total 0.4 mg/dL (0.2-1.3); Blood Urea Nitrogen 25 mg/dL (9-20); Calcium 8.8 mg/dL (8.4-10.2); Carbon Dioxide 24 mmol/L (22-30); Chloride 102 mmol/L (98-107); Estimated CRCL calculation 69 ml/min; Estimated Glomerular Filt Rate > 60; Glucose 127 mg/dL (65-110); Magnesium 1.4 mg/dL (1.6-2.3); Potassium 4.1 mmol/L (3.4-5.0); Sodium 139 mmol/L (137-145)
[2024-11-26 02:17] LABS: Add Urine Microscopic? YES; Appearance Urine Cloudy (Clear); Bacteria Urine None Seen /hpf; Bilirubin Urine Negative (Negative); Blood Urine Negative (Negative); Color Urine Dark Yellow (Yellow); Glucose Urine UA Negative (Negative); Ketones Urine Trace mg/dL (Negative); Leukocyte Esterase Ur Negative LEU/UL (Negative); Nitrate Urine Negative (Negative); Protein Urine 2+ mg/dL (Negative); Specific Grav Ur 1.025 (1.001-1.035); Squamous Epithelial Cell Urine None Seen /hpf (Few); WBC Urine 0-5 /hpf (0-3)
[2024-11-26] MEDS: MAGNESIUM SULFATE 3GM/D5W100ML 3 GM/100 ML BAG IVPB (05:12)
[2024-11-26] MEDS: LACTATED RINGERS 1,000 ML 100 ML IV CONT ×2 (05:40→22:08)
--- OUTSIDE RECORDS SUMMARY | 2024-11-26 06:14 | XMS_ITS | Encounter Summary ---
Author Organization [facility] Address [address] [facility] [place] [address] Care Team Providers Care Muck Operator Name Role Phone Lisy Olmedo MD Primary Care Provide r Sylvain Daniels MD Primary Care Provider + [phone] None, Physician Primary Care Provider Unavailabl e Sylvain Daniels MD Unavailable [phone] Sylvain Daniels MD Unavailable [phone] Sylvain Daniels MD Unavailable [phone] Sylvain Daniels MD Primary Care Provider + [phone] Kiana Cole MD Primary Care Provider Sean Kyle MD Primary Care Provider [phone] Kiana Cole MD Primary Care Provider Reason for Visit * Reason Onset Date Comments MEDICATION REFILL 12/27/2020 Encounter Details Date Type Department Care Team (Late st Contact Info) Description 12/27/[address] 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 Office Visit [facility] - Neurology [address] [facility] [place] [address] Aline Finch MD [address] [place] [address] 02/10/2025 10:00 AM CDT Office Visit [facility] - Cardiology [address] [facility], [facility] [address] [place] [address] Curly Lay MD [id number] [place] [phone] documented as of this encounter Visit Diagnoses Diagnosis Essential hypertension Coronary artery disease involving [place] coronary artery of [place] heart with angina pectoris (HCC) Type 2 [...] documented as of this encounter Care Teams Muck Operator Relationship Specialty Start Date End Date Lisy Olmedo MD PCP - General 04/20/09 05/09/22 Sylvain Daniels MD PCP - General Family Medicine 05/10/22 02/14/24 None, Physician [address] [place] [address] PCP - General 02/15/24 05/16/24 Sylvain Daniels MD [address] [place] [phone] PCP - Attributed-[employer] 05/15/22 10/01/22 Sylvain Daniels MD [address] [place] [phone] PCP - Attributed-[employer] 02/12/23 04/01/23 Sylvain Daniels MD [address] [place] [address] PCP - General Family Medicine 05/17/24 05/19/24 Kiana Cole MD [address] [place] [address] PCP - General Internal Medicine 05/22/24 08/04/24 Sean Kyle MD [address] [place] [phone] PCP - General Internal Medicine 08/05/24 09/15/24 Kiana Cole MD [address] [place] [address] PCP - General Internal Medicine 09/16/24 Sylvain Daniels MD Family Medicine 02/15/24 documented as of this encounter
--- OUTSIDE RECORDS SUMMARY | 2024-11-26 06:14 | XMS_ITS | CCD ---
Author Name Saroj DAVIS, Dr Amanda escalona Address [address] [place] [address] Phone Organization [facility] Phone Care Team Providers Care Hand Blocker Name Role Phone Unavailable Primary Care Provider Unavailabl e Unavailable Chronic Care Management Unavaila ble Summary Purpose DataExchange Insurance Providers Payer name Policy type / Coverage type Covered alliance party ID Effective Begin Date Effective End Date [place] [id number] Unknown Family history Sister Diagnosis Age At [...] No Inactive Date Active LISINOPRIL angioedema RxNorm: 51217 05/21/2024 No Inactive D ate Active Penicillin [...] (2.5 mg base)/3 mL nebulization soln RxNorm: 3109821 Inhale 3 Milliliter(s) Inhalation every 6 hours as needed for shortness of breath 4 11/19/19 25 Inactive albuterol sulfate HFA 90 mcg/actuation aerosol inhaler RxNorm: 1455227 Administer 2 Puff(s) Inhalation every 4 to 6 hours 4 12/20/19 25 Active buspirone 5 mg tablet RxNorm: 096332 Take 1 Tablet(s) Oral three times a day 4 10/26/19 25 Inactive Senna Plus 8.6 mg-50 mg tablet RxNorm: 244479 Take 2 Tablet(s) Oral two times a day as needed for constipation 4 07/28/20 24 Inactive multivitamin tablet RxNorm: Take 1 Tablet(s) Oral every day 4 10/20/19 26 Active buspirone 5 mg tablet RxNorm: 072244 Take 1 Tablet(s) Oral two times a day 4 10/16/19 26 Active polyethylene glycol 3350 17 gram/dose oral powder RxNorm: 086202 Use 1 Unit Dose Oral every day Mix 17g (one capful) with 8oz liquid. Hold for loose stools. 4 08/17/20 25 Active ipratropium 0.5 mg-albuterol 3 mg (2.5 mg base)/3 mL nebulization soln RxNorm: 9923816 Administer 3 Milliliter(s) Inhalation every 6 hours as needed for shortness of breath 4 08/22/20 24 Inactive buspirone 5 mg tablet RxNorm: 222305 Take 1 Tablet(s) Oral three times a day 07/23/20 24 Inactive aspirin 81 mg chewable tablet RxNorm: 681490 Take 1 Tablet(s) Feeding Tube / PEG every day 08/13/20 25 Active atorvastatin 40 mg tablet RxNorm: 306580 Take 1 Tablet(s) Feeding Tube / PEG every night at bedtime 08/13/20 25 Active amlodipine 10 mg tablet RxNorm: 703697 Take 1 Tablet(s) Feeding Tube / PEG once daily 08/13/20 25 Active clopidogrel 75 mg tablet RxNorm: 379105 Take 1 Tablet(s) Feeding Tube / PEG once daily 08/13/20 25 Active Pen Needle 31 gauge x 5/16 RxNorm: Take 1 Pen Needle Subcutaneous three times a day 08/13/20 25 Active famotidine 20 mg tablet RxNorm: 582516 Take 1 Tablet(s) Feeding Tube / PEG two times a day 08/13/20 25 Active thiamine HCl (vitamin B1) 100 mg tablet RxNorm: 477977 Take 1 Tablet(s) Feeding Tube / PEG every day 08/13/20 25 Active folic acid 1 mg tablet RxNorm: 497597 Take 1 Tablet(s) Feeding Tube / PEG every day 08/13/20 25 Active multivit-mineral -folic acid 333 mcg-lutein 3 mg-zeaxant 0.67 mg tablet RxNorm: Take 1 Tablet(s) Oral every day 4 No Stop Date Active Lantus Solostar U-100 Insulin 100 unit/mL (3 mL) subcutaneous pen RxNorm: 376112 Administer 15 Unit(s) Subcutaneous every night at bedtime 08/13/20 25 Active loratadine 10 mg tablet RxNorm: 810976 Take 1 Tablet(s) Feeding Tube / PEG every day 08/13/20 25 Active Senna Plus 8.6 mg-50 mg tablet RxNorm: 285389 Take 2 Tablet(s) Feeding Tube / PEG two times a day as needed for constipation 07/29/20 24 Inactive albuterol sulfate HFA 90 mcg/actuation aerosol inhaler RxNorm: 1985691 Administer 2 Puff(s) Inhalation every 4 to 6 hours 4 05/21/20 24 Inactive Medication Administered No Medication Administered data Results Observation Observation Code Item Item Code Result Date Service Location COMPLETE CBC W/ DIFF WBC 79798 WBC 6690-2 6.8 K/ul [facility] [address] [place] [address] 88181 COMPLETE CBC W/ DIFF WBC 70823 RBC 789-8 3.89 M/uL [facility] [address] [place] [address] 69126 COMPLETE CBC W/ DIFF WBC 41411 Hemoglobin 718-7 10.6 g/dL [facility] [address] [place] [address] 73598 COMPLETE CBC W/ DIFF WBC 18358 Hematocrit 4544-3 32.2 % [facility] [address] [place] [address] 76228 COMPLETE CBC W/ DIFF WBC 24194 MCV 787-2 82.9 fL [facility] [address] [place] [address] 40342 COMPLETE CBC W/ DIFF WBC 62102 MCH 785-6 27.3 pg 024 [facility] [address] [place] [address] 88415 COMPLETE CBC W/ DIFF WBC 54735 MCHC 786-4 32.9 g/dL 024 [facility] [address] [place] [address] 64104 COMPLETE CBC W/ DIFF WBC 11756 RDW 788-0 15.5 % 024 [facility] [address] [place] [address] 55332 COMPLETE CBC W/ DIFF WBC 23025 Platelet Count 777-3 303 K/uL 024 [facility] [address] [place] [address] 65326 COMPLETE CBC W/ DIFF WBC 30338 MPV 27793-2 8.0 fL [facility] [address] [place] [address] 07023 COMPLETE CBC W/ DIFF WBC 97348 Neutrophils % 770-8 51.2 % [facility] [address] [place] [address] 81058 COMPLETE CBC W/ DIFF WBC 83048 Lymphocytes % 736-9 39.8 % 08/08/2 024 [facility] [address] [place] [address] COMPLETE CBC W/ DIFF WBC 52281 Monocytes % 5905-5 6.7 % 024 [facility] [address] [place] [address] COMPLETE CBC W/ DIFF WBC 72912 Eosinophils % 713-8 2.1 % 024 [facility] [address] [place] [address] COMPLETE CBC W/ DIFF WBC 18306 Basophils% 706-2 0.2 % 024 [facility] [address] [place] [address] COMPLETE CBC W/ DIFF WBC 66572 Absolute Neutrophil 751-8 3482 /ul 024 [facility] [address] [place] [address] 95694 COMPLETE CBC W/ DIFF WBC 67907 Absolute Lymphocyte 55423-1 2706 /ul 024 [facility] [address] [place] [address] 27628 COMPLETE CBC W/ DIFF WBC 89530 Absolute Monocyte 742-7 456 /ul 024 [facility] [address] [place] [address] 69451 COMPLETE CBC W/ DIFF WBC 21252 Absolute Eosinophil 711-2 143 /ul 024 [facility] [address] [place] [address] 09773 COMPLETE CBC W/ DIFF WBC 19076 Absolute Basophil 704-7 14 /ul 024 [facility] [address] [place] [address] 80679 Direct LDL 36789 LDL-Direct 36390-3 117 mg/dL 024 [facility] [address] [place] [address] 54454 TRIGLYCERIDES 97568 Triglycerides 2571-8 173 mg/dL 024 [facility] [address] [place] [address] 60699 TRIGLYCERIDES 92994 VLDL 96767-6 35 mg/dL 024 [facility] [address] [place] [address] 14678 CHOLESTEROL 06597 Cholesterol 2093-3 177 mg/dL 024 [facility] [address] [place] [address] 61115 CHEM 14 (METABOLIC PANEL) 31830 Glucose 2345-7 138 mg/dL 024 [facility] [address] [place] [address] 03707 CHEM 14 (METABOLIC PANEL) 96861 BUN 3094-0 21 mg/dL 024 [facility] [address] [place] [address] 69277 CHEM 14 (METABOLIC PANEL) 47940 Creatinine 2160-0 0.8 mg/dL 024 [facility] [address] [place] [address] 45491 CHEM 14 (METABOLIC PANEL) 24247 BUN/Creat Ratio 3097-3 25.7 024 [facility] [address] [place] [address] 38985 CHEM 14 (METABOLIC PANEL) 36060 GFR Estimated 68591-2 97 mL/min/1. 73m2 024 [facility] [address] [place] [address] CHEM 14 (METABOLIC PANEL) 73079 Sodium 2951-2 139 mmol/L 024 [facility] [address] [place] [address] 18530 CHEM 14 (METABOLIC PANEL) 49559 Potassium 2823-3 4.0 mmol/L 024 [facility] [address] [place] [address] 22006 CHEM 14 (METABOLIC PANEL) 69413 Chloride 2075-0 98 mmol/L 024 [facility] [address] [place] [address] 23014 CHEM 14 (METABOLIC PANEL) 19823 Total CO2 2028-9 30 mmol/L 024 [facility] [address] [place] [address] 89458 CHEM 14 (METABOLIC PANEL) 64675 Anion Gap 1863-0 15.0 mEq/L 024 [facility] [address] [place] [address] 10634 CHEM 14 (METABOLIC PANEL) 59570 Calculated Serum Osmolality 12743-4 293 mOsm/kg 024 [facility] [address] [place] [address] 11497 CHEM 14 (METABOLIC PANEL) 96878 Albumin 35344-2 3.1 g/dL 024 [facility] [address] [place] [address] 03955 CHEM 14 (METABOLIC PANEL) 56426 Total Protein 2885-2 7.5 g/dL 024 [facility] [address] [place] [address] 28342 CHEM 14 (METABOLIC PANEL) 43573 Globulin 2336-6 4.4 g/dL 024 [facility] [address] [place] [address] 14971 CHEM 14 (METABOLIC PANEL) 86815 Albumin/Globulin Ratio 1759-0 0.7 024 [facility] [address] [place] [address] 51164 CHEM 14 (METABOLIC PANEL) 55906 ALK PHOS 6768-6 66.00 U/L 024 [facility] [address] [place] [address] CHEM 14 (METABOLIC PANEL) 99431 SGOT/AST 1920-8 13 U/L 024 [facility] [address] [place] [address] CHEM 14 (METABOLIC PANEL) 53968 SGPT/ALT 1743-4 19 U/L 024 [facility] [address] [place] [address] CHEM 14 (METABOLIC PANEL) 31257 Total Bilirubin 1975-2 0.3 mg/dL 024 [facility] [address] [place] [address] CHEM 14 (METABOLIC PANEL) 10580 Calcium 25046-9 9.4 mg/dL 024 [facility] [address] [place] [address] CHEM 14 (METABOLIC PANEL) 83220 Corrected Calcium 53532-3 10.3 mg/dL 024 [facility] [address] [place] [address] PTH 74479 PTH 2731-8 21.7 pg/mL 024 [facility] [address] [place] [address] VITAMIN B-12 34055 Vitamin B12 2132-9 609 pg/mL 05/22 024 [facility] [address] [place] [address] 51228 [id number]-[id number] IN 4548-4 Glyco HGB A1C 85340-2 7.0 % 024 [facility] [address] [place] [address] 10928 L4Z-[id number] IN [facility]8-4 eAG 51927-4 154 mg/dL 024 [facility] [address] [place] [address] HDL - CHOL 13369 HDL 2085-9 30 mg/dL 024 [facility] [address] [place] [address] HDL - CHOL 88876 CHD 96875-4 17 % 024 [facility] [address] [place] [address] TSH 28557 TSH 63773-7 2.540 uIU/mL 024 [facility] [address] [place] [address] Procedures Procedure Codes Date Annual Wellness Visit (Initial Visit) CPT-4: G04 38 07/24/2024 FLU VACC CELL CULT PRSV FREE CPT-4: 15742 07/2024 Most recent A1c = 7.0% and < 8.0% CPT-4: 3051F 07/24/2024 FLUCEL VAX PFS VAC NO PRSV 0.5ML IM CPT-4: 75206 07/24/2024 Admin flu virus vaccine CPT-4: G0008 07/24/20 24 LEVEL OF ACTIVITY ASSESS CPT-4: 1003F 024 PT SCRN TBCO ID NON USER CPT-4: G9903 07/15 Current tobacco non-user CPT-4: 1036F 024 Amnt pain noted; none prsnt CPT-4: 1126F 07/[address] [facility] CPT-4: 1159F 07/24/2024 RVW MEDS BY RX/DR IN [facility] CPT-4: 116F 2023 Patient Screened for Future Fall Risk CPT-4: 110 0F 07/24/2024 Fall plan of care doc'd CPT-4: 0518F 07/24/20 24 Most recent A1c = 7.0% and < 8.0% CPT-4: 305F 06/24/[address] [facility] CPT-4: 1159F 06/24/2024 RVW MEDS BY RX/DR IN [facility] CPT-4: 1160F 2023 Discharge Meds Reconciled w/ Current Med list CP T-4: 1111F 06/24/2024 Amnt pain noted; none prsnt CPT-4: 1126F 06/[address] CPT-4: 1159F 05/21/2024 RVW MEDS BY RX/DR IN [facility] CPT-4: 1160F 2023 Discharge Meds Reconciled w/ Current Med list CP T-4: 1111F 05/21/2024 Amnt pain noted; none prsnt CPT-4: 1126F 04/2024 Screening for clinical depre ssion is negative, follow-up plan not required CPT-4: G8510 05/21/2024 Patient Screened for Future Fall Risk CPT-4: 110 0F 05/21/2024 Fall plan of care doc'd CPT-4: 0518F 05/21/20 24 Cologuard CPT-4: 99047 Unknown [id number]-Dyzowgykpvsdaer CPT-4: 31852 Unknown Gastroenterology Referral SNOMED CT: 306 680661 CPT-4: R12 Unknown Vital Signs Date Vital 07/24/2024 Blood Pressure 1: 120/82 Code: 8480-6 BMI: 32.3 Code: 61682-6 Heart Rate 1: 81 bpm Height: 6'4 Code: 8302-2 Respiratory Rate: 16 bpm SpO2: 97% Temperature: 36.1 (C) / 97.0 (F) Weight: 265 lbs Code: 35729-1 06/24/2024 Blood Pressure 1: 134/76 Code: 8480-6 BMI: 34.6 Code: 00086-5 Heart Rate 1: 86 bpm Height: 6'4 Code: 8302-2 Respiratory Rate: 17 bpm SpO2: 94% Temperature: 36.4 (C) / 97.6 (F) Weight: 284 lbs Code: 18110-7 05/21/2024 Blood Pressure 1: 135/82 Code: 8480-6 BMI: 32.3 Code: 63829-1 Heart Rate 1: 84 bpm Height: 6'4 Code: 8302-2 Respiratory Rate: 17 bpm SpO2: 93% Temperature: 35.6 (C) / 96.0 (F) Weight: 265 lbs Code: 67566-4 Reason For Visit Reason For Visit Effective [...] disease)[ICD10: K21.9] Diagnosis: Gastrostomy present[ICD10: Z93.1] Diagnosis: rn long term care (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[ICD10: Z79.4] Diagnosis: At high risk for falls[ICD10: Z91.81] [facility] [address] [place] [address] CPT-4: G0438 4 (87932) Home or Residence Visit Est Pt - [...] ] Diagnosis: [ICD9: ] Diagnosis: [ICD9: ] [facility] [address] [place] [address] CPT-4: 60737 4 (00972) Home or Residence Visit Est Pt - Moderate Level, 40 mins Diagnosis: Syncope[ICD10: R55] Diagnosis: Hemiparesis due to recent cerebrovascular accident (CVA)[ICD10: I69.359] Diagnosis: Diabetes mellitus due to underlying condition with diabetic neuropathy, with long-term current use of insulin[ICD10: E08.40] Diagnosis: detention (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[ICD10: Z79.4] Diagnosis: Hypertension [...] cancer screening[ICD10: Z12.11] Diagnosis: Paroxysmal cough[ICD10: R05.8] [facility] [address] [place] [address] CPT-4: 38862 4 (45429) 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 On PT/OT for strengthening, balance, coordination Z12.11-V76.51 Colon cancer screening: [place] R05.8-786.2 Paroxysmal cough: poss due to poor pharyngeal reflex, GERD . Try Protonix. Oropharyngeal suctioning. Order Suction Aspirator 06/24/2024 Appointment: Sean Kyle WPtel: [address] [place] [address] E034 06/24/2024 Patient Education: Obesity Completed 06/24/2024 Patient Education: Patient Medication Summary Completed 06/24/2024 Care Plan: [place] Ordered 06/15 Appointment: Oscar Hoyt WPtel: [address] [facility] [address] [id number] [place] Phone Call 06/20/2024 Appointment: Mony Moseley WPtel: [address] [place], [place] [phone] Phone Call 06/06/2024 Appointment: Mony Moseley WPtel: [address] [place], [place] [phone] Phone Call 05/26/2024 Visit Plan: I69.359-438.20 Hemiparesis [...] findings 05/21/2024 Appointment: Sean Kyle WPtel: [address] [facility] N034 05/21/2024 Patient Education: Patient Medication Summary Completed 05/21/2024 Patient Education: Obesity Completed 05/21/2024 Referral: [facility] WPtel: [address] [place] [address] [place] Referral faxed to: Agency Name: [facility] Agency Address: [address] [place] [address] Agency Phone #: [phone] Agency Agency will contact the patient to schedule Order Faxed Referral: Pending Medical Records Information [facility] requires Consent when requesting records, there i currently no consent on file for the patient can we get consent uploaded to [facility] so we can finish the request. thank you On Hold Awaiting Documentation Referral: [facility] WPtel: [address] [place], [place] [id number] [facility] hospital Medical Group- Dr Ruiz [address] [facility], [facility] [address], [place] [address] Reprocess Referral: [facility] WPtel: [address] 05/22/2024 order faxed to agency. Not Taken Up Referral: [facility] home [facility] WPtel: [address] [facility] [address] [place], [place] [id number] Referral ACT - Recert Referral: Pending [employer] Referral Information lvm , provided the above agency information. Instructed to call O&R department if they do not hear back from agency withing 7-10 days.05/22/24 no answer, lvm to cb Spoke with office HVS Referral faxed to:[facility] Agency Name: _[facility] Agency Address:_ [address], [place] [address] Agency Phone #:_ Agency _ Agency will contact the patient to schedule appointment. Order Faxed Referral: Sean Kyle WPtel: [address] [place] [address] [address] [facility] [place] Agency contacted, confirmed they're accepting new patients. They will run insurance once order is received Referral faxed to: Agency Name: [facility] Agency Address: [address] [facility], [facility] [address], [place] [address] Agency Phone #:[phone] Agency Agency will ship to patient. pt has referral info Order Faxed Referral: [facility] home [facility] WPtel: [address] [facility] [address] [place], [place] [id number] Referral ACT - Cert Referral: [facility] WPtel: [address] Notes & referral faxed to [facility] [phone] Order Faxed Referral: Pending [employer] Order Information called and spoke to Nanette GUADALUPEA an advised contact number given Order Faxed Referral: Sean Kyle WPtel: [address] [facility] 06-24-2024. Called pt. spoke with Jenn [...] Jenn agree and never return a call. [employer] Confirmed Referral: Pending DME Order Information [...] placed R05.8-786.2 Paroxysmal cough R26.9-781.2 Gait abnormality: [facility] . On PT progressing J45.909-493.90 Asthma K21.9-530.81 [...] At high risk for falls: at present [facility] bound. On PT/OT for strengthening, balance, coordination [...] late effect of cerebrovascular accident (CVA) Z79.4- rn long term care (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 I69.322-438.13 Dysarthria as [...]
--- OUTSIDE RECORDS SUMMARY | 2024-11-26 06:15 | XMS_ITS | CCD ---
Author Name Saroj DAVIS, Dr Amanda escalona Address [address] [facility] [address] [place] [address] Phone [facility] Phone Care Team Providers Care All Source Analyst Name Role Phone Unavailable Primary Care Provider Unavailabl e Unavailable Chronic Care Management Unavaila ble Summary Purpose DataExchange Insurance Providers Payer name Policy type / Coverage type Covered libertarian ID Effective Begin Date Effective End Date [place] [id number] Unknown Family history Sister Diagnosis Age At [...] No Inactive Date Active LISINOPRIL angioedema RxNorm: 85785 05/21/2024 No Inactive D ate Active Penicillin [...] disease ICD-10: I11.9 ICD-9: 402.90 07/24/2024 Active 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 ICD-1 0: [...] Syncope ICD-10: R55 ICD-9: 780.2 06/24/2024 Active penitentiary (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 ICD-10: Z79.4 05/21 Active Urinary incontinence ICD-10: R32 ICD-9: 788.30 05/21/2024 Active Medications Medication Codes Instructions Start Date Stop Date Status Fill Instructions ipratropium 0.5 mg-albuterol 3 mg (2.5 mg base)/3 mL nebulization soln RxNorm: 2040613 Inhale 3 Milliliter(s) Inhalation every 6 hours as needed for shortness of breath 4 11/19/19 25 Inactive albuterol sulfate HFA 90 mcg/actuation aerosol inhaler RxNorm: 1956664 Administer 2 Puff(s) Inhalation every 4 to 6 hours 4 12/20/19 25 Active buspirone 5 mg tablet RxNorm: 278362 Take 1 Tablet(s) Oral three times a day 4 10/26/19 25 Inactive Senna Plus 8.6 mg-50 mg tablet RxNorm: 685212 Take 2 Tablet(s) Oral two times a day as needed for constipation 4 07/28/20 24 Inactive multivitamin tablet RxNorm: Take 1 Tablet(s) Oral every day 4 10/20/19 26 Active buspirone 5 mg tablet RxNorm: 941545 Take 1 Tablet(s) Oral two times a day 4 10/16/19 26 Active polyethylene glycol 3350 17 gram/dose oral powder RxNorm: 450454 Use 1 Unit Dose Oral every day Mix 17g (one capful) with 8oz liquid. Hold for loose stools. 4 08/17/20 25 Active ipratropium 0.5 mg-albuterol 3 mg (2.5 mg base)/3 mL nebulization soln RxNorm: 2472236 Administer 3 Milliliter(s) Inhalation every 6 hours as needed for shortness of breath 4 08/22/20 24 Inactive buspirone 5 mg tablet RxNorm: 262824 Take 1 Tablet(s) Oral three times a day 07/23/20 24 Inactive aspirin 81 mg chewable tablet RxNorm: 246040 Take 1 Tablet(s) Feeding Tube / PEG every day 08/13/20 25 Active atorvastatin 40 mg tablet RxNorm: 248133 Take 1 Tablet(s) Feeding Tube / PEG every night at bedtime 08/13/20 25 Active amlodipine 10 mg tablet RxNorm: 077061 Take 1 Tablet(s) Feeding Tube / PEG once daily 08/13/20 25 Active clopidogrel 75 mg tablet RxNorm: 930838 Take 1 Tablet(s) Feeding Tube / PEG once daily 08/13/20 25 Active Pen Needle 31 gauge x 5/16 RxNorm: Take 1 Pen Needle Subcutaneous three times a day 08/13/20 25 Active famotidine 20 mg tablet RxNorm: 368243 Take 1 Tablet(s) Feeding Tube / PEG two times a day 08/13/20 25 Active thiamine HCl (vitamin B1) 100 mg tablet RxNorm: 617553 Take 1 Tablet(s) Feeding Tube / PEG every day 08/13/20 25 Active folic acid 1 mg tablet RxNorm: 842167 Take 1 Tablet(s) Feeding Tube / PEG every day 08/13/20 25 Active multivit-mineral -folic acid 333 mcg-lutein 3 mg-zeaxant 0.67 mg tablet RxNorm: Take 1 Tablet(s) Oral every day 4 No Stop Date Active Lantus Solostar U-100 Insulin 100 unit/mL (3 mL) subcutaneous pen RxNorm: 677784 Administer 15 Unit(s) Subcutaneous every night at bedtime 08/13/20 25 Active loratadine 10 mg tablet RxNorm: 850014 Take 1 Tablet(s) Feeding Tube / PEG every day 08/13/20 25 Active Senna Plus 8.6 mg-50 mg tablet RxNorm: 883995 Take 2 Tablet(s) Feeding Tube / PEG two times a day as needed for constipation 07/29/20 24 Inactive albuterol sulfate HFA 90 mcg/actuation aerosol inhaler RxNorm: 7975839 Administer 2 Puff(s) Inhalation every 4 to 6 hours 4 05/21/20 24 Inactive Medication Administered No Medication Administered data Results Observation Observation Code Item Item Code Result Date Service Location COMPLETE CBC W/ DIFF WBC 19230 WBC 6690-2 6.8 K/ul [facility] [address] [place] [address] 89779 COMPLETE CBC W/ DIFF WBC 61389 RBC 789-8 3.89 M/uL [facility] [address] [place] [address] 52825 COMPLETE CBC W/ DIFF WBC 88594 Hemoglobin 718-7 10.6 g/dL [facility] [address] [place] [address] 23256 COMPLETE CBC W/ DIFF WBC 26254 Hematocrit 4544-3 32.2 % [facility] [address] [place] [address] 77825 COMPLETE CBC W/ DIFF WBC 32375 MCV 787-2 82.9 fL [facility] [address] [place] [address] 99304 COMPLETE CBC W/ DIFF WBC 72032 MCH 785-6 27.3 pg 024 [facility] [address] [place] [address] 12959 COMPLETE CBC W/ DIFF WBC 12096 MCHC 786-4 32.9 g/dL 024 [facility] [address] [place] [address] 61907 COMPLETE CBC W/ DIFF WBC 98932 RDW 788-0 15.5 % 024 [facility] [address] [place] [address] 70178 COMPLETE CBC W/ DIFF WBC 54577 Platelet Count 777-3 303 K/uL 024 [facility] [address] [place] [address] 91148 COMPLETE CBC W/ DIFF WBC 83030 MPV 75104-3 8.0 fL [facility] [address] [place] [address] 02884 COMPLETE CBC W/ DIFF WBC 06705 Neutrophils % 770-8 51.2 % [facility] [address] [place] [address] 97867 COMPLETE CBC W/ DIFF WBC 19143 Lymphocytes % 736-9 39.8 % 08/08/2 024 [facility] [address] [place] [address] COMPLETE CBC W/ DIFF WBC 05454 Monocytes % 5905-5 6.7 % 024 [facility] [address] [place] [address] COMPLETE CBC W/ DIFF WBC 28680 Eosinophils % 713-8 2.1 % 024 [facility] [address] [place] [address] COMPLETE CBC W/ DIFF WBC 81977 Basophils% 706-2 0.2 % 024 [facility] [address] [place] [address] COMPLETE CBC W/ DIFF WBC 67235 Absolute Neutrophil 751-8 3482 /ul 024 [facility] [address] [place] [address] 51940 COMPLETE CBC W/ DIFF WBC 73540 Absolute Lymphocyte 83442-8 2706 /ul 024 [facility] [address] [place] [address] 07419 COMPLETE CBC W/ DIFF WBC 87681 Absolute Monocyte 742-7 456 /ul 024 [facility] [address] [place] [address] 72219 COMPLETE CBC W/ DIFF WBC 21458 Absolute Eosinophil 711-2 143 /ul 024 [facility] [address] [place] [address] 35446 COMPLETE CBC W/ DIFF WBC 32221 Absolute Basophil 704-7 14 /ul 024 [facility] [address] [place] [address] 65435 Direct LDL 78291 LDL-Direct 10570-3 117 mg/dL 024 [facility] [address] [place] [address] 73605 TRIGLYCERIDES 33790 Triglycerides 2571-8 173 mg/dL 024 [facility] [address] [place] [address] 89658 TRIGLYCERIDES 66743 VLDL 77635-6 35 mg/dL 024 [facility] [address] [place] [address] 44677 CHOLESTEROL 41693 Cholesterol 2093-3 177 mg/dL 024 [facility] [address] [place] [address] 96095 CHEM 14 (METABOLIC PANEL) 79392 Glucose 2345-7 138 mg/dL 024 [facility] [address] [place] [address] 56823 CHEM 14 (METABOLIC PANEL) 42123 BUN 3094-0 21 mg/dL 024 [facility] [address] [place] [address] 12544 CHEM 14 (METABOLIC PANEL) 06454 Creatinine 2160-0 0.8 mg/dL 024 [facility] [address] [place] [address] 27568 CHEM 14 (METABOLIC PANEL) 37127 BUN/Creat Ratio 3097-3 25.7 024 [facility] [address] [place] [address] 64063 CHEM 14 (METABOLIC PANEL) 93197 GFR Estimated 62866-7 97 mL/min/1. 73m2 024 [facility] [address] [place] [address] CHEM 14 (METABOLIC PANEL) 11217 Sodium 2951-2 139 mmol/L 024 [facility] [address] [place] [address] 66823 CHEM 14 (METABOLIC PANEL) 63179 Potassium 2823-3 4.0 mmol/L 024 [facility] [address] [place] [address] 52033 CHEM 14 (METABOLIC PANEL) 76716 Chloride 2075-0 98 mmol/L 024 [facility] [address] [place] [address] 73294 CHEM 14 (METABOLIC PANEL) 81657 Total CO2 2028-9 30 mmol/L 024 [facility] [address] [place] [address] 83814 CHEM 14 (METABOLIC PANEL) 28231 Anion Gap 1863-0 15.0 mEq/L 024 [facility] [address] [place] [address] 97799 CHEM 14 (METABOLIC PANEL) 58227 Calculated Serum Osmolality 11343-9 293 mOsm/kg 024 [facility] [address] [place] [address] 42363 CHEM 14 (METABOLIC PANEL) 79148 Albumin 43257-9 3.1 g/dL 024 [facility] [address] [place] [address] 95817 CHEM 14 (METABOLIC PANEL) 72846 Total Protein 2885-2 7.5 g/dL 024 [facility] [address] [place] [address] 79569 CHEM 14 (METABOLIC PANEL) 23235 Globulin 2336-6 4.4 g/dL 024 [facility] [address] [place] [address] 73365 CHEM 14 (METABOLIC PANEL) 22407 Albumin/Globulin Ratio 1759-0 0.7 024 [facility] [address] [place] [address] 66967 CHEM 14 (METABOLIC PANEL) 97102 ALK PHOS 6768-6 66.00 U/L 024 [facility] [address] [place] [address] CHEM 14 (METABOLIC PANEL) 35843 SGOT/AST 1920-8 13 U/L 024 [facility] [address] [place] [address] CHEM 14 (METABOLIC PANEL) 45972 SGPT/ALT 1743-4 19 U/L 024 [facility] [address] [place] [address] CHEM 14 (METABOLIC PANEL) 56015 Total Bilirubin 1975-2 0.3 mg/dL 024 [facility] [address] [place] [address] CHEM 14 (METABOLIC PANEL) 77964 Calcium 87120-7 9.4 mg/dL 024 [facility] [address] [place] [address] CHEM 14 (METABOLIC PANEL) 64444 Corrected Calcium 25933-1 10.3 mg/dL 024 [facility] [address] [place] [address] PTH 63153 PTH 2731-8 21.7 pg/mL 024 [facility] [address] [place] [address] VITAMIN B-12 85338 Vitamin B12 2132-9 609 pg/mL 05/22 024 [facility] [address] [place] [address] 40749 [id number]-[id number] IN 4548-4 Glyco HGB A1C 34216-3 7.0 % 024 [facility] [address] [place] [address] 02099 [id number] IN [facility]8-4 eAG 86281-9 154 mg/dL 024 [facility] [address] [place] [address] HDL - CHOL 81831 HDL 2085-9 30 mg/dL 024 [facility] [address] [place] [address] HDL - CHOL 92743 CHD 76160-9 17 % 024 [facility] [address] [place] [address] TSH 50926 TSH 37242-5 2.540 uIU/mL 024 [facility] [address] [place] [address] Procedures Procedure Codes Date Annual Wellness Visit (Initial Visit) CPT-4: G04 38 07/24/2024 FLU VACC CELL CULT PRSV FREE CPT-4: 19272 07/2024 Most recent A1c = 7.0% and < 8.0% CPT-4: 3051F 07/24/2024 FLUCEL VAX PFS VAC NO PRSV 0.5ML IM CPT-4: 37617 07/24/2024 Admin flu virus vaccine CPT-4: G0008 07/24/20 24 LEVEL OF ACTIVITY ASSESS CPT-4: 1003F 024 PT SCRN TBCO ID NON USER CPT-4: G9903 07/15 Current tobacco non-user CPT-4: 1036F 024 Amnt pain noted; none prsnt CPT-4: 1126F 07/15 MED LIST DOCD IN [facility] CPT-4: 1159F 07/24/2024 RVW MEDS BY RX/DR IN [facility] CPT-4: 116F 2023 Patient Screened for Future Fall Risk CPT-4: 110 0F 07/24/2024 Fall plan of care doc'd CPT-4: 0518F 07/24/20 24 Most recent A1c = 7.0% and < 8.0% CPT-4: 305F 06/24/2024 MED LIST DOCD IN [facility] CPT-4: 1159F 06/24/2024 RVW MEDS BY RX/DR IN [facility] CPT-4: 1160F 2023 Discharge Meds Reconciled w/ Current Med list CP T-4: 1111F 06/24/2024 Amnt pain noted; none prsnt CPT-4: 1126F 06/[address] CPT-4: 1159F 05/21/2024 RVW MEDS BY RX/DR IN [facility] CPT-4: 1160F 2023 Discharge Meds Reconciled w/ Current Med list CP T-4: 1111F 05/21/2024 Amnt pain noted; none prsnt CPT-4: 1126F 04/2024 Screening for clinical depre ssion is negative, follow-up plan not required CPT-4: G8510 05/21/2024 Patient Screened for Future Fall Risk CPT-4: 110 0F 05/21/2024 Fall plan of care doc'd CPT-4: 0518F 05/21/20 24 Cologuard CPT-4: 81358 Unknown T0E-Raxhzsjfxshaags CPT-4: 78405 Unknown Gastroenterology Referral SNOMED CT: 306 [id number] CPT-4: R12 Unknown Vital Signs Date Vital 07/24/2024 Blood Pressure 1: 120/82 Code: 8480-6 BMI: 32.3 Code: 50863-3 Heart Rate 1: 81 bpm Height: 6'4 Code: 8302-2 Respiratory Rate: 16 bpm SpO2: 97% Temperature: 36.1 (C) / 97.0 (F) Weight: 265 lbs Code: 94147-6 06/24/2024 Blood Pressure 1: 134/76 Code: 8480-6 BMI: 34.6 Code: 88888-9 Heart Rate 1: 86 bpm Height: 6'4 Code: 8302-2 Respiratory Rate: 17 bpm SpO2: 94% Temperature: 36.4 (C) / 97.6 (F) Weight: 284 lbs Code: 19161-0 05/21/2024 Blood Pressure 1: 135/82 Code: 8480-6 BMI: 32.3 Code: 18784-8 Heart Rate 1: 84 bpm Height: 6'4 Code: 8302-2 Respiratory Rate: 17 bpm SpO2: 93% Temperature: 35.6 (C) / 96.0 (F) Weight: 265 lbs Code: 53620-5 Reason For Visit Reason For Visit Effective [...] disease)[ICD10: K21.9] Diagnosis: Gastrostomy present[ICD10: Z93.1] 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: Z79.4] Diagnosis: At high risk for falls[ICD10: Z91.81] [facility] Office [address] [place] [address] CPT-4: G0438 4 (55823) Home or Residence Visit Est Pt - [...] ] Diagnosis: [ICD9: ] Diagnosis: [ICD9: ] [facility] [address] [place] [address] CPT-4: 85995 4 (70304) Home or Residence Visit Est Pt - Moderate Level, 40 mins Diagnosis: Syncope[ICD10: R55] Diagnosis: Hemiparesis due to recent cerebrovascular accident (CVA)[ICD10: I69.359] Diagnosis: Diabetes mellitus due to underlying condition with diabetic neuropathy, with long-term current use of insulin[ICD10: E08.40] Diagnosis: penitentiary (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[ICD10: Z79.4] Diagnosis: Hypertension [...] cancer screening[ICD10: Z12.11] Diagnosis: Paroxysmal cough[ICD10: R05.8] [facility] [address] [place] [address] CPT-4: 75877 4 (72036) Home or Residence Visit [facility]ER - Moderate Level, 60 mins Diagnosis: Hemiparesis due to recent cerebrovascular accident (CVA)[ICD10: I69.359] Diagnosis: Gastrostomy present[ICD10: Z93.1] Diagnosis: Diabetes mellitus due to underlying condition with diabetic neuropathy, with long-term current use of insulin[ICD10: E08.40] Diagnosis: Hypertension with heart disease[ICD10: I11.9] Diagnosis: Dysphagia as late effect of cerebrovascular accident (CVA)[ICD10: I69.391] Diagnosis: penitentiary (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[ICD10: Z79.4] Diagnosis: Dysarthria [...] examination with abnormal findings[ICD10: Z00.01] [facility] [address] [place] [address] CPT-4: 06946 4 Plan of Care Planned Activity Notes [...] insulin: Stable Hba1c 7.0. On Lantus Z79.4-V58.67 penitentiary (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: On Lantus 15 [...] Pepcid 07/24/2024 Appointment: Sean Kyle WPtel: [address] [facility] E034 07/24/2024 Patient Education: Obesity Completed 07/24/2024 [...] insulin: Stable. Hba1c 7.0. On Lantus Z79.4-V58.67 penitentiary (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 On Lantus 15 [...] At high risk for falls: at present [facility] bound. On PT/OT for strengthening, balance, coordination Z12.11-V76.51 Colon cancer screening: [place] R05.8-786.2 Paroxysmal cough: poss due to poor pharyngeal reflex, GERD . Try Protonix. Oropharyngeal suctioning. Order Suction Aspirator 06/24/2024 Appointment: Sean Kyle WPtel: [address] [place] [address] E034 06/24/2024 Patient Education: Obesity Completed 06/24/2024 Patient Education: Patient Medication Summary Completed 06/24/2024 Care Plan: [place] Ordered 06/15 Appointment: Oscar Hoyt WPtel: [address] [facility] [address] [id number] [place] Phone Call 06/20/2024 Appointment: Mony Moseley WPtel: [address] [place], [place] [id number] Phone Call 06/06/2024 Appointment: Mony Moseley WPtel: [address] [place], [place] [phone] Phone Call 05/26/2024 Visit Plan: I69.359-438.20 Hemiparesis [...] late effect of cerebrovascular accident (CVA) Z79.4- penitentiary (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 I69.322-438.13 Dysarthria as [...] findings 05/21/2024 Appointment: Sean Kyle WPtel: [address] [facility] N034 05/21/2024 Patient Education: Patient Medication Summary Completed 05/21/2024 Patient Education: Obesity Completed 05/21/2024 Referral: [employer] WPtel: [address] [place] [address] [place] Referral faxed to: Agency Name: [employer] Agency Address: [address] [place] [address] Agency Phone #: [phone] Agency Agency will contact the patient to schedule Order Faxed Referral: Pending Medical Records Information [facility] requires Consent when requesting records, there i currently no consent on file for the patient can we get consent uploaded to [facility] so we can finish the request. thank you On Hold Awaiting Documentation Referral: [facility] WPtel: [address] [place], [place] [id number] [facility]- Dr Ruiz [address] [facility], [facility] [address], [place] [address] Reprocess Referral: [facility] WPtel: [address] 05/22/2024 order faxed to agency. Not Taken Up Referral: [facility] WPtel: [address] [facility] [address] [place], [place] [id number] Referral ACT - Recert Referral: Pending Vocational Director Referral Information lvm , provided the above agency information. Instructed to call O&R department if they do not hear back from agency withing 7-10 days.05/22/24 no answer, lvm to cb Spoke with office HVS Referral faxed to:[employer] [facility] Agency Name: _[facility] Agency Address:_ [address], [place] [address] Agency Phone #:_ Agency _ Agency will contact the patient to schedule appointment. Order Faxed Referral: Sean Kyle WPtel: [address] [place] [address] [facility] [place] Agency contacted, confirmed they're accepting new patients. They will run insurance once order is received Referral faxed to: Agency Name: [employer] Agency Address: [address] [facility], [facility] [address], [place] [address] Agency Phone #:[phone] Agency Agency will ship to patient. pt has referral info Order Faxed Referral: [facility] WPtel: [address] [facility] [address] [place], [place] [id number] Referral ACT - Cert Referral: [facility] WPtel: [address] Notes & referral faxed to [facility] [phone] Order Faxed Referral: Pending Incontinence Supplies Order Information called and spoke to Nanette GUADALUPEA an advised contact number given Order Faxed Referral: Sean Kyle WPtel: [address] [facility] 06-24-2024. Called pt. spoke with [...] Jenn agree and never return a call. [employer] Confirmed Referral: Pending DME Order Information [...] insulin: Stable Hba1c 7.0. On Lantus Z79.4-V58.67 penitentiary (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: On Lantus 15 [...] placed R05.8-786.2 Paroxysmal cough R26.9-781.2 Gait abnormality: [facility] . On PT progressing J45.909-493.90 Asthma [...] insulin: Stable. Hba1c 7.0. On Lantus Z79.4-V58.67 penitentiary (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; On Lantus 15 [...] At high risk for falls: at present [facility] bound. 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
--- OUTSIDE RECORDS SUMMARY | 2024-11-26 06:15 | XMS_ITS | Clinical Summary ---
Author Organization [facility] Address [address] [place] [address] Care Team Providers Care Public Relations Representative Name Role Phone Sean Kyle MD Primary Care Provider [phone] Allergies Active Allergy Reactions Criticality Noted Date [...] Date Confusion 05/25/2024 Near syncope 05/22/2024 Asthma ([facility]) 05/22/2024 Dysphagia following cerebral infarction 03/19/20 24 Cerebrovascular accident ([facility]) 03/12 Staphylococcus aureus infection 02/08/2024 Hyperlipidemia [...] LDL-C. Mika EATON et al. RAFFI. 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 Atherosclerosis of coronary artery 01/23/2018 Overview (05/22/2024): Last Assessment & Plan: without angina needs more aggressive RFM continue aspirin Controlled type 2 diabetes francisco carney without complication, without long-term current use of insulin ([facility]) 09/28/2011 Resolved Problems Problem Noted Date [...] History of ETOH use prior to stroke [facility] Utilities Answer Date Recorded In the past 12 months has [employer], [employer], oil, or water [employer] threatened to shut off services in your [...] any time in the past 12 m [facility], were you homeless or living in a usp (including now)? Patient unable to answer 05/23/2024 [...] 7.4(H) <5.7 % 05/23/2024 1:29 AM CDT [facility] Comment: ADA GUIDELINES 2010 5.7 TO 6.4% INCREASED RISK OF DIABETES > OR = 6.5% CONSISTENT WITH DIABETES ESTIMATED AVG GLUCOSE 166 mg/dL 05/23/2024 1:29 AM CDT [facility] 05/22/2024 6:25 PM CDT Yaritza Cowart NP LABORATORY Final Result [facility] [address] [place] [address], from Last 3 Months or Most Recently Relevant to Health Maintenance Insurance MEDICARE Advance Directives * Full Code (Latest Code Status on File) Date Activated Date Inactivated Comments 05/22/2024 11:15 PM 05/25/2024 9:20 PM Care Teams Public Relations Representative Relationship Specialty Start Date End Date Sean Kyle MD [address] [place] [address] PCP - General INTERNAL MEDICINE 05/22/24
--- OUTSIDE RECORDS SUMMARY | 2024-11-26 06:15 | XMS_ITS | Encounter Summary ---
Author Organization [facility] Address [address] [place] [address] Care Team Providers Care Supply Chain Specialist Name Role Phone Lisy Olmedo MD Primary Care Provide r Sylvain Daniels MD Primary Care Provider + [phone] None, Physician Primary Care Provider Unavailabl e Sylvain Daniels MD Unavailable +[phone] Sylvain Daniels MD Unavailable [phone] Sylvain Daniels MD Unavailable [phone] Sylvain Daniels MD Primary Care Provider + [phone] Kiana Cole MD Primary Care Provider Sean Kyle MD Primary Care Provider [phone] Kiana Cole MD Primary Care Provider Reason for Visit * Reason Onset Date Comments MEDICATION REFILL 05/13/2021 Encounter Details Date Type Department Care Team (Late st Contact Info) Description 05/13/2021 Refill [facility] [address] [facility] [address] [place] [address] Lisy Olmedo MD [address] [place] [address] MEDICATION REFILL Social History Tobacco Use Types [...] person have serious difficulty walking/climbing stairs? Yes-post [facility]; needs rehab to build activity level. 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 [facility] - Neurology [address] [place] [address] Aline Finch MD [address] [place] [address] 02/10/2025 10:00 AM CDT Office Visit [facility] - Cardiology [address] [address] Curly Lay MD [address] [address] documented as of this encounter Visit Diagnoses [...] documented as of this encounter Care Teams Supply Chain Specialist Relationship Specialty Start Date End Date Lisy Olmedo MD PCP - General 04/20/09 05/09/22 Sylvain Daniels MD PCP - General Family Medicine 05/10/22 02/14/24 [facility], Physician [address] [place] [address] PCP - General 02/15/24 05/16/24 Sylvain Daniels MD [address] [place] [address] PCP - Attributed-[employer] 05/15/22 10/01/22 Sylvain Daniels MD [address] [place] [address] PCP - Attributed-[employer] 02/12/23 04/01/23 Sylvain Daniels MD [address] [place] [address] PCP - General Family Medicine 05/17/24 05/19/24 Kiana Cole MD [address] [place] [address] PCP - General Internal Medicine 05/22/24 08/04/24 Sean Kyle MD [address] [place] [address] PCP - General Internal Medicine 08/05/24 09/15/24 Kiana Cole MD [address] [place] [address] PCP - General Internal Medicine 09/16/24 Sylvain Daniels MD Family Medicine 02/15/24 documented as of this encounter
--- OUTSIDE RECORDS SUMMARY | 2024-11-26 06:15 | XMS_ITS | Encounter Summary ---
Author Organization [facility] Address [address] [facility] [place] [address] Care Team Providers Care Instrument Technician Apprentice Name Role Phone Lisy Olmedo MD Primary Care Provide r Sylvain Daniels MD Primary Care Provider + [phone] None, Physician Primary Care Provider Unavailabl e Sylvain Daniels MD Unavailable +[phone] Sylvain Daniels MD Unavailable +[phone] Sylvain Daniels MD Unavailable +[phone] Sylvain Daniels MD Primary Care Provider + [phone] Kiana Cole MD Primary Care Provider Sean Kyle MD Primary Care Provider [phone] Kiana Cole MD Primary Care Provider Reason for Visit * Reason Onset Date Comments MEDICATION REFILL 11/19/2021 Encounter Details Date Type Department Care Team (Late st Contact Info) Description 11/19/2021 Refill [facility] [address] [facility] [address] [place] [address] Lisy Olmedo MD [address] [place] [address] MEDICATION REFILL Social History Tobacco Use Types [...] person have serious difficulty walking/climbing stairs? Yes-post [facility]; needs rehab to build activity level. [...] 50 years ago ??? Penicillin V Rash QUALITY CONSULTANT documented in this encounter Plan of Treatment Upcoming Encounters Date Type Department Care Team (Late st Contact Info) Description 11/28/2024 9:00 AM DATA QUALITY CONSULTANT Office Visit [facility] - Neurology [address] [facility] [place] [phone] Aline Finch MD [address] [place] [address] 02/10/2025 10:00 AM CDT Office Visit [facility] - Cardiology [id number] [place] [address] Curly Lay MD [address] [place] [address] documented as of this encounter Visit Diagnoses Diagnosis Erectile dysfunction, unspecified erectile dysfunction type documented in this encounter Additional Health Concerns Infection Onset Date Last Indicated Resolved Time COVID-19 Under Investigation 07/26/2022 07/26/2022 07/26/2022 5:54 PM CDT COVID-19 Under Investigation 04/10/2024 04/10/2024 04/10/2024 2:48 PM CDT documented as of this encounter Care Teams Instrument Technician Apprentice Relationship Specialty Start Date End Date Lisy Olmedo MD PCP - General 04/20/09 05/09/22 Sylvain Daniels MD PCP - General Family Medicine 05/10/22 02/14/24 None, Physician [address] [place] [address] PCP - General 02/15/24 05/16/24 Sylvain Daniels MD [address] [place] [address] PCP - Attributed-[employer] 05/15/22 10/01/22 Sylvain Daniels MD [address] [place] [address] PCP - Attributed-[employer] 02/12/23 04/01/23 Sylvain Daniels MD [address] [place] [address] PCP - General Family Medicine 05/17/24 05/19/24 Kiana Cole MD [address] [place] [address] PCP - General Internal Medicine 05/22/24 08/04/24 [place] [address] PCP - General Internal Medicine 08/05/24 09/15/24 Kiana Cole MD [address] [place] [address] PCP - General Internal Medicine 09/16/24 Sylvain Daniels MD Family Medicine 02/15/24 documented as of this encounter
--- OUTSIDE RECORDS SUMMARY | 2024-11-26 06:16 | XMS_ITS | Patient Health Summary ---
Author Organization [facility] Address [address] [place] [address] Care Team Providers Care Proration Clerk Name Role Phone Sylvain Daniels MD Unavailable [phone] Kiana Cole MD Primary Care Provider Note from [facility],non-owned Affiliates and Associated Physician Practices is amultiple site organization consisting of ambulatory clinics and hospital sitesin [place], [place], [place] and [place]. This disclosure is being madepursuant to the Care Everywhere program and may not contain all information available regarding this patient. Last updated 18.[facility] Allergies * Lisinopril(Angioedema) -High Criticality * [...] Recorded Patient Health Questionnaire-2 Score 0 09/17/2024 [facility] of Occupat ional Health - Occupational Stress [...] Comments Blood Pressure 124/83 09/17/2024 8:17 AM [facility] Pulse 101 09/17/2024 8:17 AM [facility] Temperature 35.8 C (96.5 F) 09/17/2024 8:17 AM [facility] Respiratory Rate 10 08/29/2024 8:44 AM [facility] Oxygen Saturation 96% 09/17/2024 8:17 AM [facility] Inhaled Oxygen Concentration 21% 02/15/2024 3 :17 PM CDT Weight 120.2 kg (265 lb) 09/17/2024 8:17 AM [facility] Height 193 cm (6' 4 ) 09/17/2024 8:17 AM [facility] Body Mass Index 32.26 09/17/2024 8:17 AM [facility] Procedures * HEMOGLOBIN A1C - POINT OF [...] * CT HEAD WO CONTRAST(Performed 03/19/2024) * NE EGD FLEX TRANSORAL W PLCMT GTUBE PERC(Performed [...] GLUCOSE - POINT OF CARE(Performed 01/30/2024) * NE EGD FLEX TRANSORAL W PLCMT GTUBE PERC(Performed [...] use of insulin ([facility]) * HEMOGLOBIN A1C - POINT OF CARE (AMB)(Performed 10/18/2022) Performed for Controlled type 2 diabetes mellitus without complication, without long-term current use of insulin ([facility]) * EKG 12-LEAD(Performed 10/18/2022) Performed for 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 ([facility]), S/P CABG x 3 * HEMOGLOBIN A1C - POINT OF CARE (AMB)(Performed 08/03/2022) Performed for Type 2 diabetes mellitus with other circulatory complication, without long-term current use of insulin ([facility]) * GLUCOSE - POINT OF CARE(Performed 07/28/2022) [...] artery disease involving 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 (HCC), Essential hypertension, [...] use of insulin ([facility]) * CBC W AUTO DIFFERENTIAL(Performed 12/24/2019) Performed for Fatigue, unspecified type * COMPREHENSIVE METABOLIC PANEL(Performed 12/24/2019) Performed for Essential hypertension * IMAGING/RADIOLOGY/XRAY RESULTS ORDER(Performed 12/24/2019) * HEMOGLOBIN A1C - POINT OF CARE (AMB) [facility](Performed 11/17/2019) Performed for Type 2 diabetes mellitus with other circulatory complication, without long-term current use of insulin ([facility]) * CT ANGIO AORTIC ROOT(Performed 02/11/2019) Performed for 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 ([facility]), Essential hypertension, Coronary artery disease involving assiniboine and sioux coronary artery of assiniboine and sioux heart with angina pectoris ([facility]), Type 2 diabetes mellitus with other circulatory complication, without long-term current use of insulin ([facility]), S/P CABG x 3, Hypertension, unspecified type, Aortic dilatation ([facility]) * CREATININE BLOOD - POCT (IP) [facility](Performed 02/11/2019) Performed for 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 ([facility]) * HEMOGLOBIN A1C - POINT OF CARE (AMB) [facility](Performed 01/23/2019) Performed for Controlled type 2 diabetes mellitus without complication, without long-term current use of insulin ([facility]) * MICROALB/CREAT RATIO URINE RANDOM PANEL(Performed 01/20/2019) [...] artery disease involving 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 (HCC), S/P CABG [...] artery disease involving 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 (HCC), Hypertension, unspecified [...] artery disease involving 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 (HCC) * GLUCOSE [...] POINT OF CARE (AMB) [facility](Performed 02/29/2012) * NE EGD FLEX TRANSORAL W PLCMT GTUBE PERC Results * (ABNORMAL) HEMOGLOBIN A1C - POINT OF CARE (AMB) [facility] (09/17/2024 9:38 AM [facility]) Hemoglobin A1c POCT 6.2(A) 4.2 - 5.8 % QC Verified Yes Yes Blood BLOOD SPECIMEN / Unknown 09/17/2024 9:38 AM [facility] Kiana Cole MD LAB - POINT OF [...] time period is included. Pathologist [facility] Glucose WB/POC 120(H) 70 - 115 mg/dL 06/04/2024 7:23 PM CDT [facility] Specimen Type Cap Fingerstick 2023 7:23 PM CDT [facility] Blood BLOOD SPECIMEN / Unknown 06/04/2024 4:42 PM CDT 06/04/2024 7:23 PM CDT Farhat Enamorado MD LAB - POINT OF CARE ORDERABLES Performing Organization Address City/State/[facility] Co de Phone Number [facility] [address] [place] [phone], [facility] [phone] * (ABNORMAL) CBC W/O DIFFERENTIAL (06/04/2024 11:30 AM CDT) Only the most recent of27 resultswithin the time period is included. Pathologist [facility] WBC 7.7 4.0 - 10.7 x10E9/L 06/04/2024 11:57 AM CDT [facility] RBC Count 4.14(L) 4.30 - 5.80 x10E12/L 06/04/2024 11:57 AM [facility] Hemoglobin 10.9(L) 13.3 - 17.5 g/dL 06/04/2024 11:57 AM [facility] Hematocrit 34.3(L) 38.7 - 51.1 % 06/04/2024 11:57 AM [facility] MCV 82.9 80.0 - 98.0 fL 06/04/2024 11:57 AM [facility] MCH 26.3(L) 26.7 - 33.6 pg 06/04/2024 11:57 AM [facility] MCHC 31.8 31.7 - 36.3 g/dL 06/04/2024 11:57 AM [facility] RDW-CV 14.8 11.3 - 14.8 % 06/04/2024 11:57 AM [facility] Platelet Count 292 150 - 420 x10E9/L 06/04/2024 11:57 AM [facility] MPV 9.4 7.8 - 11.4 fL 06/04/2024 11:57 AM [facility] Blood BLOOD SPECIMEN / Unknown Lab Venipuncture / Unknown 06/04/2024 11:30 AM CDT 06/04/2024 11:51 AM CDT Jason Coppola MD LAB - HEMATOLOGY ORD ERABLES [facility] [address] [place] [phone], [facility] [phone] * (ABNORMAL) BASIC METABOLIC PANEL (CALCIUM TOTAL) [...] Coppola MD LAB - CHEMISTRY ORDAnirudh RAZO [address] [address], [facility] [phone] * PHOSPHORUS BLOOD (06/04/2024 11:30 AM CDT) Only the most recent of48 resultswithin the time period is included. Phosphorus 4.3 2.8 - 5.1 mg/dL 06/04/2024 12:27 PM T [facility] Blood BLOOD SPECIMEN / Unknown Lab Venipuncture / Unknown 06/04/2024 11:30 AM CDT 06/04/2024 11:51 AM CDT Jason Coppola MD LAB - CHEMISTRY CHRISTIAN RAZO [address] [phone], [facility] [phone] * MAGNESIUM BLOOD (06/04/2024 11:30 AM CDT) Only the most recent of54 resultswithin the time period is included. Pathologist [facility] Magnesium 1.6 1.6 - 2.6 mg/dL 06/04/2024 12:27 PM CDT [facility] Blood BLOOD SPECIMEN / Unknown Lab Venipuncture / Unknown 06/04/2024 11:30 AM CDT 06/04/2024 11:51 AM CDT Jason Coppola MD LAB - CHEMISTRY SARAHE DUNG [facility] [address] [place] [address], [facility] [phone] * ECHO COMPLETE W CONTRAST W BUBBLE STUDY (06/03/2024 3:15 PM CDT) Only the most recent of2 resultswithin the time period is included. Pathologist [facility] [place] vol index 0.013 l/m [facility] CV [...] 1:14 PM Patient Status: I/P Study Site: [facility] Primary Location: [facility] Technical Quality: Adequate Exam Type: ECHO COMPLETE [...] Provider: Perfecto Hatch Attending Physician: Perfecto Hatch Automated Process Operator: Isabella Cisneros Left Ventricle Left ventricular [...] 1:14 PM Patient Status: I/P Study Site: [facility] Primary Location: [facility] EStud Info Technical Quality: Adequate Exam Type: [...] Reaction to Contrast: no Staff Referring Physician: Perefcto Hatch Ordering Provider: Perfecto Hatch Attending Physician: Perfecto Hatch Automated Process Operator: Isabella Cisneros Left Ventricle Left ventricular [...] on 06/03/2024 04:03 PM Perfecto Hatch INFORMATION ASSISTANT-PILOT BOAT CAPTAIN ECHO CUPID * [place] SWALLOWING FUNCTION STUDY [...] of3 resultswithin the time period is included. [facility] TSH 2.381 0.350 - 4.940 uIU/mL 05/30/2024 11:01 AM CDT [facility] Blood BLOOD SPECIMEN / Unknown Lab Venipuncture / Unknown 05/30/2024 4:32 AM CDT 05/30/2024 5:01 AM CDT Jason Coppola MD LAB - CHEMISTRY CHRISTIAN RAZO [address] [address], [facility] [phone] * EKG 12-LEAD (05/29/2024 8:41 AM CDT) Only the most recent of8 resultswithin the time period is included. [facility] Ventricular Rate 75 BPM [facility] MUSE Atrial Rate 75 BPM [facility] MUSE P-R Interval 132 ms [facility] QRS Duration ms 92 ms [facility] MUSE Q-T Interval ms 416 ms [facility] MUSE QTC Calculation (Bezet) 464 ms [facility]USE Calculated P [place] 45 degrees [facility] MUSE Calculated R [place] 37 degrees [facility]USE Calculated T [place] -90 degrees [facility]USE Interpretation EKG SINUS RHYTHM WITH PREMATURE VENTRICULAR COMPLEXES ST & T WAVE ABNORMALITY, CONSIDER INFERIOR ISCHEMIA ABNORMAL ECG NO PREVIOUS ECGS AVAILABLE Confirmed by PATI DAVIS, ORALIAMAILE ([id number]) on 06/18/2024 10:09:45 PM [facility] MUSE 05/29/2024 8:41 AM CDT 06/18/2024 10:09 PM CDT Ruslan Garza MD ECG ORDERABLES [facility] MUSE * CT Angio Brain [...] is dictated by Nasreen Gomez MD (resident caregiver) I, Christy Iverson MD have personally reviewed and interpreted this examination/study. > Interpreting Provider: Christy Iverson MD on 05/29/2024 10:01 AM Narrative 05/29/2024 10:01 AM CDT PROCEDURE: CT ANGIO BRAIN NECK STROKE, DATE/TIME OF EXAM: 05/29/2024 1:30 AM, LOCATION [facility] INDICATION: I63.9: Cerebrovascular accident (CVA), unspecified mechanism [...] STROKE, DATE/TIME OF EXAM: 41:30 AM, LOCATION [facility] INDICATION: I63.9: Cerebrovascular accident (CVA), unspecified mechanism [...] is dictated by Nasreen Gomez MD (resident caregiver) I, Christy Iverson MD have personally reviewed [...] MD LAB - POINT OF CARE ORDERABLES [address] [address], [facility] [phone] * INR WHOLE BLOOD - POINT OF CARE (IP) STROKE (05/29/2024 12:41 AM CDT) INR 1.1 0.9 - 1.2 05/29/2024 12:43 AM CDT [facility] Device [id number] 05/29/2024 12:43 AM CDT [facility] [employer] Operator ID [id number] 05/29/2024 12:43 AM CDT [facility] Blood BLOOD SPECIMEN / Unknown 05/29/2024 12:41 AM CDT 05/29/2024 12:43 AM CDT Jason Coppola MD LAB - POINT OF CARE ORDERABLES [facility] [place] [address], [facility] [phone] * CT Brain Stroke (05/29/2024 12:34 AM CDT) Only the most recent of2 resultswithin the time period is included. Anatomical Region Laterality Modality Head Computed Tomogra phy 05/29/2024 9:39 AM CDT Impressions 05/29/2024 9:43 AM CDT IMPRESSION: 1. No acute intracranial process. A preliminary report was provided to the clinical team by Nehemias Lino M.D of [facility] at 12:36 AM on 05/29/2024. > Interpreting Provider: Christy Iverson MD on 05/29/2024 9:43 AM Narrative 05/29/2024 9:43 AM CDT PROCEDURE: CT BRAIN STROKE, DATE/TIME OF EXAM: 05/29/2024 12:40 AM, LOCATION [facility] INDICATION: I63.9: Cerebrovascular accident (CVA), unspecified mechanism [...] DATE/TIME OF EXAM: 05/29/2024 12:40 AM, LOCATION [facility] INDICATION: I63.9: Cerebrovascular accident (CVA), unspecified mechanism [...] the clinical team by Nehemias Doll of [facility] at 12:36 AM on 05/29/2024. > [...] DATE/TIME OF EXAM: 05/26/2024 5:27 PM, LOCATION [facility] INDICATION: I63.9: Cerebrovascular accident (CVA), unspecified mechanism [...] NECK, DATE/TIME OF EXAM: 05/26/2024 5:27PM, LOCATION [facility] INDICATION: I63.9: Cerebrovascular accident (CVA), unspecified mechanism [...] dictated by Kem Diaz MD, PhD (resident caregiver). I, Monika Her MD have personally reviewed and interpreted this examination/study. > Interpreting Provider: Monika Her MD on 05/27/2024 9:20 AM Narrative 05/27/2024 9:20 AM CDT PROCEDURE: MRI BRAIN WO CONTRAST, DATE/TIME OF EXAM: 05/26/2024 4:41 PM, LOCATION [facility] INDICATION: I63.9: Cerebrovascular accident (CVA), unspecified mechanism [...] CONTRAST, DATE/TIME OF EXAM: 05/26/2024 4:41PM, LOCATION [facility] INDICATION: I63.9: Cerebrovascular accident (CVA), unspecified mechanism [...] dictated by Kem Diaz MD, PhD (resident caregiver). I, Monika Her MD have personally reviewed and interpreted this examination/study. > Interpreting Provider: Monika Her MD on 05/27/2024 9:20 AM Jason Coppola MD MR ORDERABLES * (ABNORMAL) CBC W AUTO DIFFERENTIAL (05/26/2024 8:27 AM CDT) Only the most recent of36 resultswithin the time period is included. WBC 7.7 4.0 - 10.7 x10E9/L 05/26/2024 8:39 AM [facility] RBC Count 3.94(L) 4.30 - 5.80 x10E12/L 05/26/2024 8:39 AM [facility] Hemoglobin 10.6(L) 13.3 - 17.5 g/dL 05/26/2024 8:39 AM [facility] Hematocrit 33.0(L) 38.7 - 51.1 % 05/26/2024 8:39 AM [facility] MCV 83.8 80.0 - 98.0 fL 05/26/2024 8:39 AM [facility] MCH 26.9 26.7 - 33.6 pg 05/26/2024 8:39 AM [facility] MCHC 32.1 31.7 - 36.3 g/dL 05/26/2024 8:39 AM [facility] RDW-CV 14.6 11.3 - 14.8 % 05/26/2024 8:39 AM [facility] Platelet Count 220 150 - 420 x10E9/L 05/26/2024 8:39 AM [facility] MPV 9.8 7.8 - 11.4 fL 05/26/2024 8:39 AM [facility] Neutrophil % 60.9 41.0 - 74.0 % 05/26/2024 8:39 AM [facility] Lymphocyte % 29.5 17.0 - 47.0 % 05/26/2024 8:39 AM [facility] Monocyte % 8.0 3.0 - 11.0 % 05/26/2024 8:39 AM [facility] Eosinophil % 1.2 0.0 - 7.0 % 05/26/2024 8:39 AM [facility] Basophil % 0.3 0.0 - 1.6 % 05/26/2024 8:39 AM [facility] Immature Granulocytes % 0.1 0.0 - 1.0 % 05/26/2024 8:39 AM [facility] Neutrophil Absolute 4.68 1.60 - 7.50 x10E9/L 05/26/2024 8:39 AM [facility] Lymphocyte Absolute 2.26 1.00 - 4.40 x10E9/L 05/26/2024 8:39 AM CDT [facility] Monocyte Absolute 0.61 0.15 - 1.00 x10E9/L 05/26/2024 8:39 AM CDT [facility] Eosinophil Absolute 0.09 0.00 - 0.60 x10E9/L 05/26/2024 8:39 AM CDT [facility] Basophil Absolute 0.02 0.00 - 0.13 x10E9/L 05/26/2024 8:39 AM CDT [facility] Blood BLOOD SPECIMEN / Unknown Venipuncture / Unknown 05/26/2024 8:27 AM CDT 05/26/2024 8:32 AM CDT Jason Coppola MD LAB - HEMATOLOGY ORD ERABLES [facility] [address] [place] [address], [facility] [phone] * HEMOGLOBIN A1C - POINT OF CARE (AMB) (05/22/2024 2:19 PM CDT) Only the most recent of5 resultswithin the time period is included. Hemoglobin A1c POCT 7.1 % Expiration Date 01/23/2026 Lot # [id number] QC Verified Yes Yes Blood BLOOD SPECIMEN [...] Axial images through the brain without contrast. [employer] software was utilized to analyze for intracranial [...] DATE/TIME OF EXAM: 05/17/2024 10:47 AM, LOCATION [facility] INDICATION: W19.XXXA: Unspecified fall, initial encounter [...] PORTABLE, DATE/TIME OF EXAM: 05/17/2024 10:47AM, LOCATION [facility] INDICATION: W19.XXXA: Unspecified fall, initial encounter [...] - 105 mg/dL 05/17/2024 10:53 AM CDT [facility] Sodium 141 136 - 145 mmol/L 05/17/2024 10:53 AM CDT [facility] Potassium 4.8 3.5 - 5.1 mmol/L 05/17/2024 10:53 AM T [facility] Chloride 106 98 - 107 mmol/L 05/17/2024 10:53 AM CDT [facility] CO2 26 22 - 29 mmol/L 05/17/2024 10:53 AM T [facility] Calcium 9.7 8.4 - 10.4 mg/dL 05/17/2024 10:53 AM [facility] Anion Gap 9 6 - 16 mmol/L 05/17/2024 10:53 AM T [facility] BUN 18 7 - 26 mg/dL 05/17/2024 10:53 AM [facility] Creatinine 0.88 0.72 - 1.25 mg/dL 05/17/2024 10:53 AM [facility] Alkaline Phosphatase 59 40 - 150 U/L 05/17/2024 10:53 AM CDT [facility] ALT 22 0 - 55 U/L 05/17/2024 10:53 AM T [facility] AST 15 5 - 34 U/L 05/17/2024 10:53 AM [facility] Protein Total 8.0 6.4 - 8.3 gm/dL 05/17/2024 10:53 AM [facility] Albumin 3.1(L) 3.4 - 5.0 gm/dL 05/17/2024 10:53 AM [facility] Bilirubin Total 0.3 0.2 - 1.2 mg/dL 05/17/2024 10:53 AM [facility] eGFR by CKD-EPI >90 >=90 mL/min/1.7 3 m2 05/17/2024 10:53 AM [facility] Blood BLOOD SPECIMEN / Unknown Venipuncture / Unknown 05/17/2024 10:24 AM CDT 05/17/2024 10:28 AM CDT Sarah Betancur MD LAB - CHEMISTRY ORDE DUNG [facility] Organization Address City/State/ZIP Co de Phone Number [facility] [address] [place] [address] * CK BLOOD (05/17/2024 10:24 AM CDT) Only the most recent of3 resultswithin the time period is included. CK 125 30 - 200 U/L 05/17/2024 10:53 AM CDT [facility] Blood BLOOD SPECIMEN / Unknown Venipuncture / Unknown 05/17/2024 10:24 AM CDT 05/17/2024 10:28 AM CDT Sarah Betancur MD LAB - CHEMISTRY ORDE DUNG [facility] [address] [place] [address] * XR ABDOMEN KUB PORTABLE (04/28/2024 10:56 AM CDT) Anatomical Region Laterality Modality Abdomen Radiographic Love ging 04/28/2024 10:5 2 AM CDT Impressions 04/28/2024 11:10 AM CDT IMPRESSION: Left upper quadrant gastrostomy tube with contrast opacification of the gastric lumen. No evidence of extraluminal contrast. Report dictated by Ted Weber M.D. (resident caregiver) 04/28/2024 10:57 AM IAv MD have personally reviewed and interpreted this examination/study. > Interpreting Provider: Av Ariza MD on 04/28/2024 11:10 AM Narrative 04/28/2024 11:10 AM CDT PROCEDURE: XR ABDOMEN KUB PORTABLE, DATE/TIME OF EXAM: 04/28/2024 10:56 AM, LOCATION [facility] INDICATION: R68.89: Complaint associated with gastric tube [...] DATE/TIME OF EXAM: 04/28/2024 10:56 AM, LOCATION [facility] INDICATION: R68.89: Complaint associated with gastric tube [...] Report dictated by Ted Weber M.D. (resident caregiver) 04/28/2024 10:57 AM IAv MD have personally [...] observed. Report dictated by Marc Mei MD (resident caregiver). Rafy Jules MD have personally reviewed and [...] observed. Report dictated by Marc Mei MD (resident caregiver). Rafy Jules MD have personally reviewed and interpreted this examination/study. > Interpreting Provider: Rafy Arciniega MD on 04/22/2024 8:33 AM Frederic Palmer MD DIAGNOSTIC IMAGING O RDERABLES * SARS-COV-2 (COVID-19) RAPID (04/10/2024 1:24 PM CDT) COVID-19 PCR Not detected Not detected 04/10/20 2:48 PM CDT [facility] Other ENTIRE NASOPHARYNX / Unknown Collection / Unknown 04/10/2024 1:24 PM CDT 04/10/2024 2:16 PM CDT Narrative [facility] - 04/10/2024 2:48 PM CDT [...] Aishwarya Barrera MD LAB - [facility] [place] [phone] [place] [phone] * EGD WITH PEG PLACEMENT (03/17/2024 1:08 PM CDT) Report Endoscopy POC _ Patient Name: Raza Vazquez Procedure Date: 03/17/2024 1:08 PM Date of : 1960 Admit Type: Inpatient Age: 63 Gender: Male Ethnicity: Not or Race: Black or Attending MD: Alex Lopez MD, [id number] _ Procedure: Upper GI endoscopy Indications: Place [...] and volume. Procedure Code(s): --- Professional --- 02363, Esophagogastroduoden oscopy, flexible, transoral; with directed placement of percutaneous gastrostomy tube --- Technical --- 08111, Esophagogastroduoden oscopy, flexible, transoral; with directed placement of percutaneous gastrostomy tube Diagnosis Code(s): --- Professional --- R63.39, Other feeding difficulties R13.10, Dysphagia, unspecified Z43.1, Encounter for attention to gastrostomy --- Technical --- R63.39, Other feeding difficulties R13.10, Dysphagia, unspecified Z43.1, Encounter for attention to gastrostomy CPT copyright 2020 [employer]. All rights reserved. The codes documented in this report are preliminary and upon porcelain finisher review may be revised to meet current compliance requirements. Alex Lopez MD 03/17/2024 1:41:29 PM This report has been signed electronically. Number of Addenda: 0 Note Initiated On: 03/17/2024 1:08 PM [facility] ENDOSCOPY 03/17/2024 1:08 PM CDT Alex Lopez MD GI PROCEDURE ORDERAB LES [facility] ENDOSCOPY * (ABNORMAL) BLOOD GASES ART [...] % 4.9 % 03/11/2024 4:57 PM CDT [facility] RESP THERAPY O2 Content Arterial 14.1 Interpret within clinical context ml/dL 03/11/2024 4:57 PM CDT [facility] RESP THERAPY O2 Saturation Arterial 95 90 - 100 % 03/11/2024 4:57 PM CDT [facility] RESP THERAPY Methemoglobin <0.8 0.0 - 2.0 % 03/11/2024 4:57 PM CDT [facility] RESP THERAPY Carboxyhemoglobin 2.3(H) 0.0 - 2.0 % 2023 4:57 PM CDT [facility] RESP THERAPY Hemoglobin by COOX 10.8(L) 12.0 - 17.6 g/dL 03/11/2024 4:57 PM CDT [facility] RESP THERAPY Kevin's Test Positive 03/11/2024 4:57 PM CDT [facility] RESP THERAPY Sample Site Left RA 03/11/2024 4:57 PM CDT [facility] RESP THERAPY O2 Device Room Air 03/11/2024 4:57 PM CDT [facility] RESP THERAPY FI O2 21.0 % 03/11/2024 4:57 PM CDT [facility] RESP THERAPY P/F Ratio 329 03/11/2024 4:57 PM CDT [facility] RESP THERAPY Blood, arterial ARTERIAL BLOOD SPECIMEN / Unknown 03/11/2024 4:54 PM CDT 03/11/2024 4:54 PM CDT Thea Castaneda MD LAB - BLOOD GASES OR DERABLES [facility] RESP THERAPY [address] [facility] [employer] [address] [phone] * B-TYPE NATRIURETIC PEPTIDE (03/08/2024 1:01 PM CDT) Only the most recent of2 resultswithin the time period is included. BNP 18 <=100 pg/mL 03/08/2024 1:40 PM CDT [facility] Blood BLOOD SPECIMEN / Unknown Venipuncture / Unknown 03/08/2024 1:01 PM CDT 03/08/2024 1:17 PM CDT Thea Castaneda MD LAB - CHEMISTRY ORDAnirudh RAZO Performing Organization Address [facility]/ZIP Co de Phone Number [facility] [address] [place] [address] * (ABNORMAL) URINE MICROSCOPIC ONLY REFLEX TO CULTURE (02/26/2024 10:10 PM CDT) Reflex Status Culture to follow 02/26/2024 10:29 PM CDT [facility] RBC UA 51-100(A) 0 - 5 # /hpf 02/26/2024 10:29 PM CDT [facility] WBC UA >100(A) 0 - 5 # /hpf 02/26/2024 10:29 PM CDT [facility] Bacteria UA 3+(A) None Seen 02/26/2024 10:29 PM CDT [facility] Squamous Epithelial Cells 3-5 0 - 5 /hpf 02/26/2024 10:29 PM CDT [facility] Mucus UA 3+ /LPF 02/26/2024 10:29 PM CDT [facility] Urine URINE SPECIMEN OBTAINED BY CLEAN CATCH PROCEDURE / Unknown 02/26/2024 10:10 PM CDT 02/26/2024 10:18 PM CDT Narrative [facility] - 02/26/2024 10:29 PM CDT Provider Unknown LAB - URINALYSIS ORD ERAHATTIE Performing Organization Address [facility]/ZIP Co de Phone Number [facility] [address] [place] [address] * (ABNORMAL) URINALYSIS REFLEX MICROSCOPIC REFLEX CULTURE (02/26/2024 10:10 PM CDT) Color UA Beckie(A) Straw, Yellow 02/26/2024 10:23 PM CDT [facility] Clarity UA Cloudy(A) Clear 02/26/2024 10:23 PM CDT [facility] Glucose UA Negative Negative 02/26/2024 10:23 PM CDT [facility] Bilirubin UA Negative Negative 02/26/2024 10:23 PM CDT [facility] Ketone UA Negative Negative 02/26/2024 10:23 PM CDT [facility] Specific [place] UA 1.019 1.005 - 1.030 02/26/2024 10:23 PM CDT [facility] Blood UA 1+(A) Negative 02/26/2024 10:23 PM CDT [facility] pH UA 6.0 5.0 - 8.0 pH 02/26/2024 10:23 PM CDT [facility] Protein UA 1+(A) Negative 02/26/2024 10:23 PM CDT [facility] Urobilinogen UA 2.0(A) Negative mg/dL 02/26/2024 10:23 PM CDT [facility] Nitrite UA Positive(A) Negative 02/26/2024 10:23 PM CDT [facility] Leukocyte UA 3+(A) Negative 02/26/2024 10:23 PM CDT [facility] Urine Microscopy Urine microscopy to follow 02/26/2024 10:23 PM CDT [facility] Reflex Status Culture to follow 02/26/2024 10:23 PM CDT [facility] Urine URINE SPECIMEN OBTAINED BY CLEAN CATCH PROCEDURE / Unknown 02/26/2024 10:10 PM CDT 02/26/2024 10:18 PM CDT Narrative [facility] - 02/26/2024 10:23 PM CDT Ascorbic Acid can cause false negative urine strip tests for blood, glucose, nitrite, and bilirubin. Provider Unknown LAB - URINALYSIS ORD ERABLES [facility] [address] [place] [address] * (ABNORMAL) CULTURE URINE (02/26/2024 10:10 PM CDT) Only the most recent of3 resultswithin the time period is included. Culture Urine >100,000 CFU/mL Escherichia coli(A) VALERIA 02/28/2024 11:34 AM [facility]CRO[facility] Urine URINE SPECIMEN OBTAINED BY CLEAN CATCH PROCEDURE / Unknown 02/26/2024 10:10 PM CDT 02/26/2024 10:18 PM CDT Narrative [facility] - 02/28/2024 11:34 AM CDT [...] Provider Unknown LAB - MICROBIOLOGY O RDERABLES [facility]CRO[facility] [address] [place], [place] [address], [facility] [phone] * CARDIAC RHYTHM STRIP ORDER (02/18/2024 7:29 PM CDT) Only the most recent of2 resultswithin the time period is included. Narrative 02/18/2024 7:29 PM CDT Ordered by an unspecified provider. Scanned Document CARDIAC SERVICES ORD ERABLES * PREALBUMIN (02/16/2024 4:50 AM CDT) [facility] Prealbumin 21.0 16.0 - 42.0 mg/dL 02/16/2024 5:46 AM CDT [facility] Blood BLOOD SPECIMEN / Unknown 02/16/2024 4:50 AM CDT 02/16/2024 5:21 AM CDT Thea Castaneda MD LAB - CHEMISTRY CHRISTIAN RAZO Performing Organization Address City/[facility]/ZIP Co de Phone Number [facility] [address] [place] [address] * TSH (02/16/2024 4:50 AM CDT) [facility] TSH 1.6844 0.35 - 4.94 uIU/mL 02/16/2024 6:09 AM CDT [facility] Blood BLOOD SPECIMEN / Unknown Venipuncture / Unknown 02/16/2024 4:50 AM CDT 02/16/2024 5:21 AM CDT Thea Castaneda MD LAB - CHEMISTRY CHRISTIAN RAZO Performing Organization Address [facility] Co de Phone Number [facility] [address] [place] [address] * (ABNORMAL) RENAL FUNCTION PANEL (02/14/2024 4:10 PM CDT) Only the most recent of4 resultswithin the time period is included. [facility] Glucose 253(H) 70 - 105 mg/dL 02/14/2024 4:32 PM CDT [facility] Sodium 135(L) 136 - 145 mmol/L 02/14/2024 4:32 PM CDT [facility] Potassium 4.2 3.5 - 5.1 mmol/L 02/14/2024 4:32 PM CDT [facility] Chloride 104 98 - 107 mmol/L 02/14/2024 4:32 PM CDT [facility] CO2 22 22 - 29 mmol/L 02/14/2024 4:32 PM CDT [facility] Calcium 10.0 8.4 - 10.4 mg/dL 02/14/2024 4:32 PM CDT [facility] Anion Gap 9 6 - 16 mmol/L 02/14/2024 4:32 PM CDT [facility] BUN 38(H) 7 - 26 mg/dL 02/14/2024 4:32 PM CDT [facility] Creatinine 0.95 0.72 - 1.25 mg/dL 02/14/2024 4:32 PM CDT [facility] Albumin 2.6(L) 3.4 - 5.0 gm/dL 02/14/2024 4:32 PM CDT [facility] Phosphorus 5.2(H) 2.3 - 4.7 mg/dL 02/14/2024 4:32 PM CDT [facility] eGFR by CKD-EPI 89(L) >=90 mL/min/1.7 3 m2 02/14/2024 4:32 PM CDT [facility] Blood BLOOD SPECIMEN / Unknown Venipuncture / Unknown 02/14/2024 4:10 PM CDT 02/14/2024 4:15 PM CDT Andrea Zamorano MD LAB - CHEMISTRY ORDE DUNG Performing Organization Address City/[facility] Co de Phone Number [facility] [address] [place] [address] * SLIDE SCAN HEMATOLOGY (02/13/2024 4:29 AM CDT) Only the most recent of5 resultswithin the time period is included. RBC Morphology NORMAL 02/13/2024 5:32 AM CDT [facility] Platelet Morphology NORMAL 02/13/2024 5:32 AM CDT [facility] Blood BLOOD SPECIMEN / Unknown Venipuncture / Unknown 02/13/2024 4:29 AM CDT 02/13/2024 4:44 AM CDT Chuy Siegel DO LAB - HEMATOLOGY ORD ERABLES Performing Organization Address City/[facility]/ZIP Co de Phone Number [facility] [address] [place] [address] * AMMONIA (02/08/2024 11:53 AM CDT) Pathologist [facility] Ammonia 33 18 - 72 umol/L 02/08/2024 12:16 PM CDT [facility] Blood BLOOD SPECIMEN / Unknown Venipuncture / Unknown 02/08/2024 11:53 AM CDT 02/08/2024 12:02 PM CDT Chuy Salma Robbin LAB - CHEMISTRY SHOALSAnirudh RAZO Performing Organization Address [facility] Co de Phone Number [facility] [id number] [place] [address] * (ABNORMAL) HEPATIC FUNCTION PANEL (02/08/2024 5:26 AM CDT) [facility] Alkaline Phosphatase 193(H) 40 - 150 U/L 02/08/2024 9:54 AM CDT [facility] ALT 73(H) 0 - 55 U/L 02/08/2024 9:54 AM CDT [facility] AST 62(H) 5 - 34 U/L 02/08/2024 9:54 AM CDT [facility] Protein Total 8.0 6.4 - 8.3 gm/dL 02/08/2024 9:54 AM CDT [facility] Albumin 2.1(L) 3.4 - 5.0 gm/dL 02/08/2024 9:54 AM CDT [facility] Bilirubin Total 0.3 0.2 - 1.2 mg/dL 02/08/2024 9:54 AM CDT [facility] Bilirubin Direct 0.163 0.10 - 0.50 mg/dL 02/08/2024 9:54 AM CDT [facility] Blood BLOOD SPECIMEN / Unknown Line Draw / Unknown 02/08/2024 5:26 AM CDT 02/08/2024 5:37 AM CDT Chuy Salma Robbin MOSQUEDA LAB - CHEMISTRY CHRISTIAN RAZO Performing Organization Address [facility] Co de Phone Number [facility] [address] [place] [address] * (ABNORMAL) URINALYSIS REFLEX TO MICROSCOPIC NO CULTURE (02/06/2024 11:40 AM CDT) Color UA Beckie(A) Straw, Yellow 02/06/2024 1:03 PM CDT [facility] Clarity UA Cloudy(A) Clear 02/06/2024 1:03 PM CDT [facility] Glucose UA Negative Negative 02/06/2024 1:03 PM CDT [facility] Bilirubin UA Negative Negative 02/06/2024 1:03 PM CDT [facility] Ketone UA Negative Negative 02/06/2024 1:03 PM CDT [facility] Specific [place] UA 1.025 1.005 - 1.030 02/06/2024 1:03 PM CDT [facility] Blood UA 3+(A) Negative 02/06/2024 1:03 PM CDT [facility] pH UA 5.0 5.0 - 8.0 pH 02/06/2024 1:03 PM CDT [facility] Protein UA 2+(A) Negative 02/06/2024 1:03 PM CDT [facility] Urobilinogen UA 2.0(A) Negative mg/dL 02/06/2024 1:03 PM CDT [facility] Nitrite UA Negative Negative 02/06/2024 1:03 PM CDT [facility] Leukocyte UA Trace(A) Negative 02/06/2024 1:03 PM CDT [facility] Urine Microscopy Urine microscopy to follow 02/06/2024 1:03 PM CDT [facility] Urine URINE SPECIMEN OBTAINED VIA [employer]WELLING URINARY CATHETER / Unknown Collection / Unknown 02/06/2024 11:40 AM CDT 02/06/2024 12:56 PM CDT Narrative [facility] - 02/06/2024 1:03 PM CDT Kel Jacome MD LAB - URINALYSIS ORD ERABLES [facility] [address] [place] [address] * (ABNORMAL) URINE MICROSCOPIC ONLY (02/06/2024 11:40 AM CDT) RBC UA >100(A) 0 - 5 # /hpf 02/06/2024 1:30 PM CDT [facility] WBC UA 11-20(A) 0 - 5 # /hpf 02/06/2024 1:30 PM CDT [facility] Hyaline Casts None Seen 0 - 2 /LPF 02/06/2024 1:30 PM CDT [facility] Bacteria UA 2+(A) None Seen 02/06/2024 1:30 PM CDT [facility] Squamous Epithelial Cells 6-10(A) 0 - 5 /hpf 02/06/2024 1:30 PM CDT [facility] Urine URINE SPECIMEN OBTAINED VIA [employer]WELL[employer] URINARY CATHETER / Unknown Collection / Unknown 02/06/2024 11:40 AM CDT 02/06/2024 12:56 PM CDT Kel Jacome MD LAB - URINALYSIS ORD ERABLES Performing Organization Address City/[facility]/ZIP Co de Phone Number [facility] [address] [place] [address] * MRSA DNA PCR (02/06/2024 11:33 AM CDT) Only the most recent of2 resultswithin the time period is included. MRSA DNA by PCR Not detected Not detected 02/07/2024 12:39 AM CDT [facility] Microbiology SPECIMEN FROM NASAL FOSSAE / Unknown Collection / Unknown 02/06/2024 11:33 AM CDT 02/06/2024 12:56 PM CDT Narrative [facility] - 02/07/2024 12:39 AM CDT Methicillin-resistant Staphylococcus aureus (MRSA) DNA is not detected (presumed not colonized with MRSA). Kel Jacome MD LAB - MICROBIOLOGY O RDERABLES Performing Organization Address City/[facility]/ZIP Co de Phone Number [facility] [address] [place] [address], [facility] [phone] * (ABNORMAL) CULTURE SPUTUM+GRAM STAIN (02/06/2024 11:33 AM CDT) Only the most recent of2 resultswithin the time period is included. Culture Moderate Staphylococcus aureus(A) VALERIA 02/08/2024 10:43 PM CDT [facility] Comment:Staphylococcus aureu s methicillin-susceptible (MSSA) detected by penicillin binding protein immunoassay. Culture Rare normal oropharyngeal tae VALERIA 02/08/2024 10:43 PM CDT [facility] Gram Stain <10 per low power field Squamous epithelial cells 02/08/2024 10:43 PM CDT [facility] Gram Stain >= 25 per low power field Polymorphonuclear cells 02/08/2024 10:43 PM CDT [facility] Gram Stain Moderate Gram-positive cocci 02/08/2024 10:43 PM CDT [facility] Microbiology LOWER RESPIRATORY FLUID SPECIMEN [...] Jacome MD LAB - MICROBIOLOGY O RDERABLES [facility] [address] [facility] [place] [address], [facility] [phone] * CULTURE BLOOD (02/06/2024 11:31 AM CDT) Only the most recent of6 resultswithin the time period is included. Culture No growth day 5 VALERIA 02/11/2024 1:01 PM CDT [facility] Blood PERIPHERAL BLOOD / Unknown Venipuncture / Unknown 02/06/2024 11:31 AM CDT 02/06/2024 11:39 AM CDT Kel Jacome MD LAB - MICROBIOLOGY O RDERABLES [facility] [address] [place] [address] [phone] * (ABNORMAL) TRIGLYCERIDES BLOOD (02/04/2024 3:28 AM CDT) Triglycerides 190(H) <150 mg/dL 02/04/2024 4:07 AM CDT [facility] Blood BLOOD SPECIMEN / Unknown Line Draw / Unknown 02/04/2024 3:28 AM CDT 02/04/2024 3:48 AM CDT Kel Jacome MD LAB - CHEMISTRY ORDAnirudh RAZO Performing Organization Address City/[facility]/ZIP Co de Phone Number [facility] [address] [place] [address] * (ABNORMAL) DIFFERENTIAL MANUAL (02/03/2024 10:01 AM CDT) Only the most recent of2 resultswithin the time period is included. Neutrophil % 56 41 - 74 % 02/03/2024 10:56 AM CDT [facility] Lymphocyte % 28 17 - 47 % 02/03/2024 10:56 AM CDT [facility] Monocyte % 13(H) 3 - 11 % 02/03/2024 10:56 AM CDT [facility] Eosinophil % 3 0 - 7 % 02/03/2024 10:56 AM CDT [facility] Neutrophil Absolute 8.51(H) 1.60 - 7.50 x10E9/L 02/03/2024 10:56 AM CDT [facility] Lymphocyte Absolute 4.26 1.00 - 4.40 x10E9/L 02/03/2024 10:56 AM CDT [facility] Monocyte Absolute 1.98(H) 0.15 - 1.00 x10E9/L 02/03/2024 10:56 AM CDT [facility] Eosinophil Absolute 0.46 0.00 - 0.60 x10E9/L 02/03/2024 10:56 AM CDT [facility] RBC Morphology RED CELL INDICIES CONFIRMED 02/03/2024 10:56 AM CDT [facility] Blood BLOOD SPECIMEN / Unknown Venipuncture / Unknown 02/03/2024 10:01 AM CDT 02/03/2024 10:19 AM CDT Chuy Siegel DO LAB - HEMATOLOGY ORD ERABLES [facility] [address] [place] [address] * XR CHEST POST ETT [...] BLOOD GASES OR DERABLES [facility] [address] [email or web address] [address] [phone] * EGD WITH PEG PLACEMENT (01/30/2024 6:35 [...] g tube Procedure Code(s): --- Professional --- 14105, Esophagogastrodu odenoscopy, flexible, transoral; with directed placement of percutaneous gastrostomy tube --- Technical --- 50162, Esophagogastrodu odenoscopy, flexible, transoral; with directed placement of percutaneous gastrostomy tube Diagnosis Code(s): --- Professional --- Z43.1, Encounter for attention to gastrostomy R63.39, Other feeding difficulties --- Technical --- Z43.1, Encounter for attention to gastrostomy R63.39, Other feeding difficulties CPT copyright 2020 [employer]. All rights reserved. The codes documented in this report are preliminary and upon porcelain finisher review may be revised to meet current compliance requirements. Dr. Jeff Ruffin MD Jeff Ruffin MD 01/30/2024 3:19:32 PM This report has been signed electronically. Number of Addenda: 0 Note Initiated On: 01/30/2024 6:35 AM [facility] 01/30/2024 6:35 AM CDT Jeff Ruffin MD GI PROCEDURE ORDERAB LES [facility] [place] [address] * (ABNORMAL) BLOOD GASES+LYTES ARTERIAL (01/27/2024 12:33 PM CDT) pH Arterial 7.42 7.35 - 7.45 pH 01/27/2024 12:36 PM CDT [facility] RESP THERAPY pO2 Arterial 64(L) 80 - [...] BLOOD GASES OR DERABLES [facility] [address] [phone] * (ABNORMAL) LIPID PROFILE (01/24/2024 4:43 AM CDT) Only the most recent of5 resultswithin the time period is included. Cholesterol 229(H) <200 mg/dL 01/24/2024 5:21 AM CDT [facility] Triglycerides 179(H) <150 mg/dL 01/24/2024 5:21 AM CDT [facility] HDL Cholesterol 32(L) >40 mg/dL 5:21 AM CDT [facility] LDL Calculated 161(H) <130 mg/dL 01/24/2024 5:21 AM CDT [facility] VLDL Calculated 36(H) <=30 mg/dL 5:21 AM CDT [facility] Chol HDL Ratio 7.2(H) <4.5 01/24/2024 5:21 AM CDT [facility] LDL/HDL Ratio 5.0(H) <5.0 01/24/2024 5:21 AM CDT [facility] Blood BLOOD SPECIMEN / Unknown Venipuncture / Unknown 01/24/2024 4:43 AM CDT 01/24/2024 4:54 AM CDT Gladys Mcgee MD LAB - CHEMISTRY CHRISTIAN RAZO Performing Organization Address City/[facility] Co de Phone Number [facility] [id number] [place] [address] * TROPONIN-I HIGH SENSITIVE BASELINE + 1HR (01/23/2024 8:04 PM CDT) Only the most recent of2 resultswithin the time period is included. Troponin I High Sensitive 19 <=35 ng/L 01/23/2024 8:48 PM CDT [facility] Blood BLOOD SPECIMEN / Unknown Venipuncture / Unknown 01/23/2024 8:04 PM CDT 01/23/2024 8:23 PM CDT Gladys Mcgee MD LAB - CHEMISTRY CHRISTIAN RAZO Performing Organization Address City/[facility]/ZIP Co de Phone Number [facility] [address] [place] [address] * IR CAROTID CEREBRAL ANGIOGRAM [...] cerebral right vertebral artery 2. Angioplasty with [place] 2.5 mm X 15 mm balloon 4. [...] cross the lesion. A 2.5 x15 mm [place] angioplasty balloon was advanced over the exchange [...] was removed. A run performed from the GLASS BENDER demostrated a normal femoral artery bifurcation. The [...] and VAISHNAVI with large PCOM filling the FILM OR TAPE LIBRARIAN. The left vertebral artery angiogram shows a [...] 2 <6 ng/L 01/23/2024 12:26 PM CDT [facility] Blood BLOOD SPECIMEN / Unknown Venipuncture / Unknown 01/23/2024 11:52 AM CDT 01/23/2024 11:59 AM CDT Gladys Mcgee MD LAB - CHEMISTRY CHRISTIAN RAZO [facility] Organization Address City/State/ZIP Co de Phone Number [facility] [address] [place] [address] * URINE DRUG SCREEN IMMUNOASSAY (01/23/2024 11:46 AM CDT) [facility] Amphetamines Screen Urine Not detected Not detected 01/23/2024 12:12 PM CDT [facility] Barbiturates Screen Urine Not detected Not detected 01/23/2024 12:12 PM CDT [facility] Benzodiazepines Screen Urine Not detected Not detected 01/23/2024 12:12 PM CDT [facility] Cannabinoids Screen Urine Not detected Not detected 01/23/2024 12:12 PM CDT [facility] Cocaine Screen Urine Not detected Not detected 01/23/2024 12:12 PM CDT [facility] Fentanyl Urine Not detected Not detected 01/23/2024 12:12 PM CDT [facility] Methadone Screen Urine Not detected Not detected 01/23/2024 12:12 PM CDT [facility] Opiate Screen Urine Not detected Not detected 01/23/2024 12:12 PM CDT [facility] Phencyclidine Screen Urine Not detected Not detected 01/23/2024 12:12 PM CDT [facility] Urine URINE / Unknown Collection / Unknown 01/23/2024 11:46 AM CDT 01/23/2024 11:48 AM CDT Narrative [facility] - 01/23/2024 12:12 PM CDT This [...] MD LAB - URINE CHEMISTR Y ORDERABLES [facility] [address] [place] [address] * Intubation (01/23/2024 11:39 AM CDT) Narrative Gladys Mcgee MD - 01/23/2024 11:39 AM CDT Gladys Mcgee MD 01/24/2024 8:45 PM Intubation Date/Time: 01/23/2024 11:39 AM Performed by: Gladys Mcgee MD Authorized by: Gladys Mcgee MD Consent: Consent obtained: Emergent situation [place] protocol: Relevant documents present and verified: yes [...] 0.9 - 1.2 01/23/2024 10:56 AM CDT [facility] Blood BLOOD SPECIMEN / Unknown 01/23/2024 10:45 AM CDT 01/23/2024 10:56 AM CDT Gladys Mcgee MD LAB - POINT OF CARE ORDERABLES [facility] [address] [place] [address] * (ABNORMAL) HEMOGLOBIN A1C (01/23/2024 10:39 AM CDT) Only the most recent of4 resultswithin the time period is included. Hemoglobin A1c 6.1(H) <5.7 % 01/23/2024 7:28 PM CDT [facility] Estimated Average Glucose 128 mg/dL 01/23/2024 7:28 PM CDT [facility] Blood BLOOD SPECIMEN / Unknown Venipuncture / Unknown 01/23/2024 10:39 AM CDT 01/23/2024 10:42 AM CDT Narrative [facility] - 01/23/2024 7:28 PM CDT HbA1c [...] Gladys Mcgee MD LAB - CHEMISTRY ORDE [facility] [address] [place] [address] * TYPE + SCREEN PANEL (01/23/2024 10:39 AM CDT) Only the most recent of3 resultswithin the time period is included. ABO Rh O NEG 01/23/2024 11:33 AM CDT [facility] Comment:History checked. Antibody Screen NEG 11:33 AM CDT [facility] Blood Bank BLOOD SPECIMEN / Unknown Venipuncture / Unknown 01/23/2024 10:39 AM CDT 01/23/2024 10:42 AM CDT Gladys Mcgee MD LAB - BLOOD BANK ORD ERABLES Performing Organization Address [facility] Co de Phone Number [facility] [address] [place] [address] [phone] * PTT (01/23/2024 10:39 AM CDT) PTT 28.3 23.0 - 38.4 sec 01/23/2024 10:55 AM CDT [facility] Blood BLOOD SPECIMEN / Unknown Venipuncture / Unknown 01/23/2024 10:39 AM CDT 01/23/2024 10:42 AM CDT Narrative [facility] - 01/23/2024 10:55 AM CDT Heparin Therapeutic Range for PTT: 69.0 - 110.0 seconds. Gladys Mcgee MD LAB - COAGULATION OR DERABLES Performing Organization Address City/[facility]/ZIP Co de Phone Number [facility] [address] [place] [address] * PT-INR (01/23/2024 10:39 AM CDT) Only the most recent of2 resultswithin the time period is included. PT 13.3 12.1 - 14.8 sec 01/23/2024 10:55 AM CDT [facility] INR 1.0 0.9 - 1.1 01/23/2024 10:55 AM CDT [facility] Blood BLOOD SPECIMEN / Unknown Venipuncture / Unknown 01/23/2024 10:39 AM CDT 01/23/2024 10:42 AM CDT Narrative [facility] - 01/23/2024 10:55 AM CDT Conventional Warfarin Anticoagulant Therapy: INR Reference Range: 2.0-3.0 Intensive Warfarin Anticoagulant Therapy: INR Reference Range: 2.5-3.5 Gladys Mcgee MD LAB - COAGULATION OR DERABLES Performing Organization Address [facility] [[email or web address]] de Phone Number [facility] [address] [place] [address] * ALCOHOL ETHYL BLOOD (01/23/2024 10:39 AM CDT) Ethanol <10.0 <10 mg/dL 01/23/2024 11:09 AM CDT [facility] Ethanol Calculated <0.010 <=0.100 gm/dL 01/23/2024 11:09 AM CDT [facility] Blood BLOOD SPECIMEN / Unknown Venipuncture / Unknown 01/23/2024 10:39 AM CDT 01/23/2024 10:42 AM CDT Narrative [facility] - 01/23/2024 11:09 AM CDT Ethanol [...] - CHEMISTRY ORDE RABLES Performing Organization Address [facility] [place]/[facility] [[email or web address]] de Phone Number [facility] [address] [place], [place] [phone] * TROPONIN I (07/27/2022 2:44 AM CDT) Only the most recent of7 resultswithin the time period is included. Troponin I <0.010 <0.038 ng/mL 07/27/2022 3:16 AM CDT [facility] Blood BLOOD SPECIMEN / Unknown Venipuncture / Unknown 07/27/2022 2:44 AM CDT 07/27/2022 2:51 AM CDT Chandler Houston LAB - CHEMISTRY ORDE DUNG Performing Organization Address [facility] [place]/[facility] Co de Phone Number [facility] [address] [place] [address] * SARS-COV-2 (COVID-19)+INFLU A+B PCR RAPID (07/26/2022 5:12 PM CDT) Pathologist [facility] COVID-19 PCR Not detected Not detected 07/26/20 5:54 PM CDT [facility] Influenza A PCR Not detected Not detected 07/26/2022 5:54 PM CDT [facility] Influenza B PCR Not detected Not detected 07/26/2022 5:54 PM CDT [facility] Microbiology SPECIMEN FROM NASOPHARYNGEAL STRUCTURE / Unknown Collection / Unknown 07/26/2022 5:12 PM CDT 07/26/2022 5:14 PM CDT Narrative [facility] - 07/26/2022 5:54 PM CDT This [...] - MICROBIOLOGY O RDERABLES Performing Organization Address [facility]/ZIP Co de Phone Number [facility] [address] [place], [place] [phone] * LACTIC ACID BLOOD REFLEX TO REPEAT (07/26/2022 4:53 PM CDT) Pathologist [facility] Lactic Acid 0.77 <=2 mmol/L 07/26/2022 5:21 PM CDT [facility] Blood BLOOD SPECIMEN / Unknown Venipuncture / Unknown 07/26/2022 4:53 PM CDT 07/26/2022 5:06 PM CDT Chandler Houston DO LAB - CHEMISTRY ORDE RABLES Performing Organization Address [facility] [place]/[facility] [[email or web address]] de Phone Number [facility] [phone] [place] [address] * D-DIMER (07/26/2022 4:53 PM CDT) [facility] D-Dimer 0.30 0.27 - 0.50 ug/mL FEU 07/26/2022 5:21 PM CDT [facility] Blood BLOOD SPECIMEN / Unknown Venipuncture / Unknown 07/26/2022 4:53 PM CDT 07/26/2022 5:07 PM CDT Narrative [facility] - 07/26/2022 5:21 PM CDT In the absence of clinical symptoms, a value less than or equal to 0.5 mcg/mL FEU significantly decreases the probability of PE/DVT (negative predictive value >95%). 1 mcg/ml FEU = 1 Fibrinogen Equivalent Unit (approximates 0.5 mcg/mL of D- dimer). Chandler Houston DO LAB - COAGULATION OR DERABLES Performing Organization Address [facility] [[email or web address]] de Phone Number [facility] [address] [place] [address] * CARDIAC EKG ORDER (03/28/2021) Only the [...] * ENDOSCOPY, COLON, SCREENING (11/12/2020 12:12 PM [facility]) Report Endoscopy POC Endoscopy Department Report _ [...] colon K64.8, Other hemorrhoids CPT copyright 2019 [employer]. All rights reserved. The codes documented in this report are preliminary and upon porcelain finisher review may be revised to meet current compliance requirements. Jodi Vernon MD 11/12/2020 12:57:40 PM Note Initiated On: 11/12/2020 12:12 PM Number of Addenda: 0 [facility] [address] [place] [address] [facility] 11/12/2020 12:1 2 PM [facility] Jodi Vernon MD GI PROCEDURE ORDER [facility] * HEPATITIS C AB W/RFLX TO HCV RNA QN PCR (07/23/2020 6:49 AM CDT) Hepatitis C Antibody NON-REACTI VE NON-REACT [facility] Signal to Cut-Off 0.09 <1.00 [facility] Comment: HCV antibody was non-reactive. There is no laboratory evidence of HCV infection. In most cases, no further action is required. However, if recent HCV exposure is suspected, a test for HCV RNA (test code 48453) is suggested. For additional information please refer to http://education.Retevo/faq/DNU87j0 (This link is being provided for informational/ educational purposes only.) Test Performed at: [employer] [facility] [place] [address] EH PURVIS DO,MPH 07/23/2020 6:49 AM CDT 07/23/2020 6:51 AM CDT Lisy Olmedo MD LAB - ELECTRICAL SUBCONTRACTOR RY ORDERABLES Performing Organization Address [facility] [[email or web address]] de Phone Number [facility] [address] [place] [address] * RPR W REFLEX TO TITER+CONFIRM (07/23/2020 6:49 AM CDT) [facility] RPR NON-REACTI VE NON-REACT ELIDA [facility] Comment: REPORT COMMENT: FASTING:YES Test Performed at: [employer] [facility] [address] EH PURVIS DO,MPH 07/23/2020 6:49 AM CDT 07/23/2020 6:51 AM CDT Lisy Olmedo MD LAB - ELECTRICAL SUBCONTRACTOR RY ORDERABLES Performing Organization Address [facility] [[email or web address]] de Phone Number [employer] [address] [place] [address] * HIV-1 HIV-2 ANTIBODY + HIV P24 AG PANEL (07/23/2020 6:49 AM CDT) [facility] HIV Screen 4th Generation w Reflex [...] purpose. For additional information please refer to http://education.Retevo/faq/RFB129 (This link is being provided for informational/ educational purposes only.) The performance of this assay has not been clinically validated in patients less than 2 years old. Test Performed at: [employer] [facility] [employer] [address] EH PURVIS DO,MPH 07/23/2020 6:49 AM CDT 07/23/2020 6:51 AM CDT Lisy Olmedo MD LAB - ELECTRICAL SUBCONTRACTOR RY ORDERABLES Performing Organization Address [place]/[facility] Phone Number [facility] [address] [place] [address] * MICROALB/CREAT RATIO URINE RANDOM PANEL (07/23/2020 [...] within a diagnostic category. Test Performed at: [employer] [address] EH PURVIS DO,MPH 07/23/2020 6:49 AM CDT 07/23/2020 6:51 AM CDT Lisy Olmedo MD LAB - URINE C HEMISTRY ORDERABLES Performing Organization Address City/State/[facility] Co de Phone Number [facility] [address] [place] [address] * CHLAMYDIA + GC AMPLIFIED PROBE (07/23/2020 6:49 AM CDT) Chlamydia trachomatis RNA NOT DETECTED NOT DETECTED [facility] GC RNA NOT DETECTED NOT DETECTED [facility] Please Note [facility] Comment: The analytical performance characteristics of this assay, when used to test SurePath(TM) specimens have been determined by [employer]. The modifications have not been cleared or approved by the FDA. This assay has been validated pursuant to the CLIA regulations and is used for clinical purposes. For additional information, please refer to https://education.Retevo/faq/SPM192 (This link is being provided for information/ educational purposes only.) Test Performed at: [employer] [facility] [address] [place] [address] EH PURVIS DO,MPH 07/23/2020 6:49 AM CDT 07/23/2020 6:51 AM CDT Lisy Olmedo MD LAB - MICROBI OLOGY ORDERABLES Performing Organization Address [facility] Co de Phone Number [facility] [address] [place] [phone] * CARDIAC REHAB (06/14/2020 11:50 AM CDT) [...] median sternotomy. Dictated by Yeyo Birmingham MD (resident caregiver). Dr. Lobito Jules M.D. have personally reviewed [...] median sternotomy. Dictated by Yeyo Birmingham MD (resident caregiver). Dr. Lobito Jules M.D. have personally reviewed and interpretedthis examination/study. This report was electronically signed by Lobito VAZQUEZ M.D. on 02/12/2019 4:18 PM . Nehemias Dennis MD CT ORDERABLES * CREATININE BLOOD - POCT (IP) [facility] (02/11/2019 4:58 PM CDT) Creatinine POCT 1.20 0.3 - 1.3 mg/dL [facility] TEST[facility] eGFR POCT 60 60 ml/min [facility] Blood BLOOD SPECIMEN / Unknown 02/11/2019 4:58 PM CDT Nehemias Dennis MD LAB - POINT OF CAR E ORDERABLES [facility] [address] [phone] * NM MYOCARD PERFUSION SPECT STRESS AND REST (09/06/2018 12:52 PM [facility]) Anatomical Region Laterality Modality Chest Nuclear Medicine 09/06/2018 1:20 PM [facility] Narrative 09/06/2018 1:22 PM [facility] NM MYOCARDIAL SPECT SCAN Indications for examination: [...] on 09/06/2018 at 1:22 PM Silvia TAPIA ME ORDERABLES * STRESS TEST LEXISCAN (NUCLEAR) (09/06/2018 11:47 AM [facility]) Stress Test Summary For full formatted report, [...] report Diagnosis: Confirmed by PRESTON HEBERT MD ([id number]) on 09/06/2018 12:02:51 PM Attending Physician: Referred By: Overread By: PRESTON HEBERT MD [facility] 09/06/2018 11:4 7 AM [facility] 09/06/2018 12:02 PM [facility]via [facility] C[facility] O RDERABLES [facility] * ECHOCARDIOGRAM 2D WITH DOPPLER (09/06/2018 10:15 AM [facility]) 09/06/2018 10:1 5 AM [facility] Narrative [facility] - 09/07/2018 9:13 AM [facility] [address] [address] Transthoracic Echocardiogram 2D, M-mode, Doppler, and Color Doppler Patient: RAZA VAZQUEZ MR number: [id number] Height: 75 in Weight: 330 lb BSA: 2.72 m Study date: 06-Sep-2018 : 1960 Age: 57 years Gender: Male Race: Black Allergies: LISINOPRIL, PENICILLINS, PENICILLIN V Diagnoses: R07.89 - Other chest pain Reading Physician: Jose Jonas MD Referring Physician: Jose Jonas MD EXPERIMENTAL FLIGHT TEST MECHANIC: Mirna Llanos STEFANIE Cardiology Group: [facility] Summary: - History: - CAD - Left ventricle: - Systolic function was at the lower limits of normal. Ejection fraction was estimated to be 50 %. - There were no regional wall motion abnormalities. - Wall thickness was normal. Indications: Evaluate chest pain. History: Prior history: CAD Risk factors: hypertension. Diabetes. Procedure: The study was performed in the [facility]. This was a routine study. The [...] MV A Richard: 0.7 m/s MV Dec Hart: 4.6 m/s2 MV E Richard: 0.9 m/s MV E/A Ratio: 1.4 Septal e': 0 m/s Prepared and signed by Jose Jonas MD Signed 07-Sep-2018 09:12:59 Procedure Note Unknown, Provider, - 09/07/[address] [address] Transthoracic Echocardiogram 2D, M-mode, Doppler, and Color Doppler Patient: RAZA VAZQUEZ MR number: [id number] Height: 75 in Weight: 330 lb BSA: 2.72 m Study date: 06-Sep-2018 : 1960 Age: 57 years Gender: Male Race: Black Allergies: LISINOPRIL, PENICILLINS, PENICILLIN V Diagnoses: R07.89 - Other chest pain Reading Physician: Jose Jonas MD Referring Physician: Jose Jonas MD EXPERIMENTAL FLIGHT TEST MECHANIC: Mirna Llanos RDCS Cardiology Group: [facility] Summary: - History: - CAD - Left ventricle: - Systolic function was at the lower limits of normal. Ejection fraction was estimated to be 50 %. - There were no regional wall motion abnormalities. - Wall thickness was normal. Indications: Evaluate chest pain. History: Prior history: CAD Risk factors: hypertension. Diabetes. Procedure: The study was performed in the [facility]. This was a routine study. The [...] MV A Richard: 0.7 m/s MV Dec Hart: 4.6 m/s2 MV E Richard: 0.9 m/s [...] is intact. Dictated by Yeyo Birmingham MD (resident caregiver). I, Dr. SAL DOHERTY have personally reviewed [...] is intact. Dictated by Yeyo Birmingham MD (resident caregiver). I, Dr. SAL DOHERTY have personally reviewed and interpreted this examination/study. This report was electronically signed by SAL DOHERTY on 01/29/2018 1:35 PM . Rosendo Fernandez INFORMATION ASSISTANT-PILOT BOAT CAPTAIN DIAGNOSTIC I MAGING ORDERABLES * URINALYSIS DIPSTICK AUTO (01/28/2018 9:35 PM CDT) Color UA Yellow Straw, Yellow, Colorless, Light Yellow 01/28/2018 9:50 PM [facility] Clarity UA Clear Clear 01/28/2018 9:50 PM [facility] Specific [place] UA 1.015 1.001 - 1.030 01/28/2018 9:50 PM [facility] pH UA 5.0 5.0 - 8.0 01/28/2018 9:50 PM [facility] Protein UA Negative <=20 mg/dL 01/28/2018 9:50 PM [facility] Glucose UA Negative Negative mg/dL 01/28/2018 9:50 PM [facility] Ketone UA Negative Negative mg/dL 01/28/2018 9:50 PM [facility] Bilirubin UA Negative Negative mg/dL 01/28/2018 9:50 PM [facility] Blood UA Negative Negative 01/28/2018 9:50 PM [facility] Nitrite UA Negative Negative 01/28/2018 9:50 PM [facility] Leukocyte Esterase Negative Negative 01/28/2018 9:50 PM [facility] Urobilinogen UA <2.0 <2.0 mg/dL 8 9:50 PM [facility] Urine URINE SPECIMEN OBTAINED BY CLEAN CATCH PROCEDURE / Unknown Collection / Unknown 01/28/2018 9:35 PM CDT 01/28/2018 9:35 PM CDT Rosendo Fernandez INFORMATION ASSISTANT-PILOT BOAT CAPTAIN LAB - URINAL YSIS ORDERABLES Performing Organization Address [facility]/ZIP Co de Phone Number [address] [phone] * HEPARIN PLATELET INDUCED ANTIBODY (01/26/2018 9:18 [...] - CHEMISTRY ORDE RABLES Performing Organization Address [facility] Co de Phone Number [address] [phone] * ECHO FU OR LIMITED (01/25/2018 12:19 [...] Blood 1.02 mmol/L 01/25/2018 9:09 AM CDT [facility] Adjusted Ionized Calcium 1.03(L) 1.19 - 1.34 mmol/L 01/25/2018 9:09 AM T [facility] pH Whole Blood 7.42 7.35 - 7.45 01/25/2018 9:09 AM [facility] Blood BLOOD SPECIMEN / Unknown Venipuncture / Unknown 01/25/2018 9:05 AM CDT 01/25/2018 9:07 AM CDT Fabienne Cardona MD LAB - CHEMISTRY ORDE RABLES Performing Organization Address [facility] Co de Phone Number [address] [phone] * PT-INR [facility] (01/25/2018 12:26 AM CDT) Only the most recent of5 resultswithin the time period is included. PT 14.2 12.1 - 14.8 Seconds 01/25/2018 12:56 AM [facility] INR 1.1 See Comment 01/25/2018 12:56 AM [facility] Comment: Suggested therapeutic range for low-intensity [...] - COAGULATION OR DERABLES Performing Organization Address [facility] Co de Phone Number [address] [phone] * (ABNORMAL) SVO2 FOR RECALIBRATION (01/25/2018 12:26 AM CDT) Only the most recent of2 resultswithin the time period is included. SVO2 for Recalibration 80.6(H) 66.0 - 77.0 % 01/25/2018 12:46 AM T [facility] Blood BLOOD SPECIMEN / Unknown Venipuncture / Unknown 01/25/2018 12:26 AM CDT 01/25/2018 12:39 AM CDT Fabienne Cardona MD LAB - CHEMISTRY CHRISTIAN RAZO Performing Organization Address [facility]/ZIP Co de Phone Number [address] [phone] * ECHO AMANDO TRANSESOPHAGEAL (01/24/2018 4:49 PM CDT) Anatomical Region Laterality Modality Color Flow Doppl er 01/24/2018 6:25 AM CDT Narrative Procedure Note Rosalee Ivory MD - 04/24/2018 Ethan Hancock MD ECHOCARDIOGRAPHY RAD IANT * PTT [facility] (01/24/2018 3:40 PM CDT) Only [...] - COAGULATION O RDERABLES Performing Organization Address City/[facility]/[place] [address], [facility] [phone] * FIBRINOGEN ACTIVITY (01/24/2018 3:40 PM CDT) Only the most recent of2 resultswithin the time period is included. Fibrinogen Clauss 302 200 - 400 mg/dL 01/24/2018 4:16 PM CDT [facility] Blood BLOOD SPECIMEN / Unknown Venipuncture / Unknown 01/24/2018 3:40 PM CDT 01/24/2018 3:53 PM CDT Caryn Zhao PA-C LAB - COAGULATION O RDERABLES [facility] [address] [place] [address], [facility] [phone] * (ABNORMAL) BLOOD GASES ART COMPLETE [facility] OR (01/24/2018 1:45 PM CDT) Only the most recent of3 resultswithin the time period is included. pH Arterial 7.26(L) 7.35 - 7.45 01/24/2018 1:55 PM [facility] pCO2 Arterial 55(H) 35 - 45 mmHg 01/24/2018 1:55 PM [facility] pO2 Arterial 315(H) 71 - 95 mmHg 01/24/2018 1:55 PM [facility] HCO3 Arterial 24.2 22.0 - 26.0 mmol/L 01/24/2018 1:55 PM [facility] TCO2 Arterial 25.9 25.0 - 29.0 mmol/L 01/24/2018 1:55 PM [facility] Base Excess Arterial -3.1(L) -2.0 - 2.0 mmol/L 01/24/2018 1:55 PM [facility] Hemoglobin Arterial 9.5(L) 13.5 - 17.5 g/dL 01/24/2018 1:55 PM [facility] Oxyhemoglobin Arterial 98.1 95.0 - 100.0 % 01/24/2018 1:55 PM [facility] Carboxyhemoglobin 0.3 0.0 - 3.0 % 01/24/2018 1:55 PM [facility] Methemoglobin 0.2 0.0 - 2.0 % 01/24/2018 1:55 PM [facility] FI O2 Arterial 100.0 % 01/24/2018 1:55 PM [facility] Ionized Calcium Whole Blood 1.06 mmol/L 01/24/2018 1:55 PM [facility] Adjusted Ionized Calcium 0.99(L) 1.19 - 1.34 mmol/L 01/24/2018 1:55 PM [facility] Sodium Whole Blood 135 135 - 145 mmol/L 01/24/2018 1:55 PM [facility] Potassium Whole Blood 5.2 3.5 - 5.5 mmol/L 01/24/2018 1:55 PM [facility] Chloride Whole Blood 102 101 - 111 mmol/L 01/24/2018 1:55 PM [facility] Glucose Whole Blood 138(H) 70 - 110 mg/dL 01/24/2018 1:55 PM [facility] Lactic Acid Whole Blood 1.1 0.5 - 3.4 mmol/L 01/24/2018 1:55 PM [facility] Blood ARTERIAL BLOOD SPECIMEN / Unknown Venipuncture / Unknown 01/24/2018 1:45 PM CDT 01/24/2018 1:53 PM T Fabienne Cardona MD LAB - BLOOD GASES OR DERABLES Performing Organization Address City/State/[facility] Co de Phone Number [address] [phone] * (ABNORMAL) BLOOD GASES JOSEPH (01/24/2018 11:50 AM [facility] pH Mixed Venous 7.31 7.30 - 7.40 01/24/2018 11:58 AM [facility] pCO2 Mixed Venous 50(H) 40 - 46 mmHg 01/24/2018 11:58 AM [facility] pO2 Mixed Venous 45(H) 35 - 42 mmHg 01/24/2018 11:58 AM [facility] HCO3 Mixed Venous 24.7 22.0 - 26.0 mmol/L 01/24/2018 11:58 AM [facility] TCO2 Mixed Venous 26.3 25.0 - 29.0 mmol/L 01/24/2018 11:58 AM [facility] Base Excess Venous -1.7 -2.0 - 2.0 mmol/L 01/24/2018 11:58 AM [facility] Hemoglobin Mixed Venous 9.3(L) 13.5 - 17.5 g/dL 01/24/2018 11:58 AM [facility] Oxyhemoglobin Mixed Venous 75.1 66.0 - 77.0 % 01/24/2018 11:58 AM CDT [facility] Carboxyhemoglobin Venous 0.6 0.0 - 3.0 % 01/24/2018 11:58 AM CDT [facility] Methemoglobin 0.5 0.0 - 2.0 % 01/24/2018 11:58 AM CDT [facility] FI O2 Mixed Venous 75.0 % 2017 11:58 AM CDT [facility] Blood BLOOD SPECIMEN / Unknown Venipuncture / Unknown 01/24/2018 11:50 AM CDT 01/24/2018 11:55 AM CDT Fabienne Cardona MD LAB - BLOOD GASES OR DERABLES [address] [phone] * PREPARE (CROSSMATCH) RBC UNIT(S), 4 Units (01/24/2018 7:31 AM CDT) Only the most recent of2 resultswithin the time period is included. Unit Description LR Red Cells [facility] Unit ABO O [facility] Unit Rh NEG [facility] Product Code RL1 [facility] OD BANK LAB Unit Number [id number] 4 [facility] Unit Status [facility] Product Number [id number] [facility] B LOOD [facility] Blood Type Barcode 9500 [facility] Unit Description LR Red Cells [facility] Unit ABO O [facility] Unit Rh NEG [facility] Product Code RL1 [facility] BLO OD BANK LAB Unit Number [id number] 5 [facility] Unit Status Selected [facility] BLOO D BANK LAB Product Number [id number] [facility] B LOOD [facility] LAB Blood Type Barcode 9500 [facility] Product Code RL1 [facility] OD BANK LAB Unit Donor # [id number] 4 [facility] BLO[facility] Unit Status released [facility] BLOO D BANK [facility] Product Code RL1 [facility] OD BANK LAB Unit Donor # [id number] 5 [facility] BLOOD [facility] Unit Status released [facility] BLOO D [facility] LAB Blood Bank BLOOD SPECIMEN / Unknown 01/24/2018 7:31 AM CDT 01/24/2018 7:31 AM CDT Fabienne Cardona MD LAB - BLOOD BANK ORD ERABLES [facility] [address] * (ABNORMAL) URINALYSIS W/MICROSCOPIC NO CULTURE (01/11/2018 3:48 PM CDT) Color UA Yellow Straw, Yellow, Colorless, Light Yellow [facility] Clarity UA Clear Clear [facility] Specific [place] UA 1.019 1.001 - 1.030 [facility] [...] Cardona MD LAB - URINALYSIS ORD ERABLES [address] [phone] * VAS CAROTID DUPLEX BILATERAL (12/21/2017 2:23 PM [facility]) Anatomical Region Laterality Modality Other Fabienne Cardona MD VASCULAR LAB ORDERAB LES * CT CHEST WO CONTRAST (12/21/2017 1:46 PM [facility]) Anatomical Region Laterality Modality Chest Other Impressions 12/21/2017 5:14 PM [facility] IMPRESSION: 1. Mildly dilated/ectatic aortic root measuring 4.1 cm in diameter. No significant atherosclerotic calcifications at the aortic root. 2. Multiple right upper lobe subpleural nodules measuring up to 3 mm. If the patient is high risk, follow-up CT is optional at 12 months. If the patient is low risk, no follow-up is required. Dictated by Yeyo Birmingham M.D. (resident caregiver) without I, Dr. Lobito VAZQUEZ M.D. have personally reviewed and interpreted this examination/study. This report was electronically signed by Lobito VAZQUEZ M.D. on 12/21/2017 5:14 PM . Narrative 12/21/2017 5:14 PM [facility] EXAMINATION: Computed tomography (CT) of the chest [...] is required. Dictated by Yeyo Birmingham M.D. (resident caregiver) bradley Jules, Dr. Lobito VAZQUEZ M.D. have personally reviewed and interpreted thisexamination/study. This report was electronically signed by Lobito VAZQUEZ M.D. on12/21/2017 5:14 PM . Fabienne Cardona MD CT ORDERABLES * XR CHEST 2VW (12/21/2017 1:33 PM [facility]) Anatomical Region Laterality Modality Chest Other Impressions 12/21/2017 3:42 PM [facility] IMPRESSION: No acute pulmonary process. Dictated by Airam Gibson MD (resident caregiver). This report was approved by Airam Gibson on 12/21/2017 2:[address] ARGENTINA Jules M.D. have personally reviewed and interpreted this examination/study. This report was electronically signed by ARGENTINA MARTIN M.D. on 12/21/2017 3:42 PM . Narrative 12/21/2017 3:42 PM [facility] EXAMINATION: XR CHEST PA AND LATERAL HISTORY: [...] pulmonary process. Dictated by Airam Gibson MD (resident caregiver). This report was approved by Airam Gibson on 12/21/2017 2:[address] ARGENTINA Jules M.D. have personally reviewed and interpreted thisexamination/study. This report was electronically signed by ARGENTINA MARTIN M.D. on 12/21/20173:42 PM . Fabienne Cardona MD DIAGNOSTIC IMAGING O RDERABLES * CCL CATH LEFT HEART ARTERY VENTRICLE (11/16/2017 11:23 AM [facility]) Anatomical Region Laterality Modality X-Ray Angiograph y Narrative 12/06/2017 9:57 AM [facility] Cardiac Catheterization Procedure Note Patient: Raza Vazquez Age: 57 y.o. Date of : 1960 Date of Admission: 11/16/17 Procedure Date: 11/16/17 FELLOW / GLUING MACHINE OPERATOR AUTOMATIC: Kavon Daley MD ATTENDING PHYSICIAN: Ofelia Johnson [...] evaluation, please review the evaluation forms in [facility]. For details on monitored clinical parameters during the intra-service sedation time, please review the procedure nurse documentation in [facility]. COMPLICATIONS: none HEMODYNAMIC FINDINGS: AO: 117/70 mmHg [...] Procedure Note Ofelia Johnson MD - 03/22/2018 [facility] Cardiac Catheterization Procedure Note Patient: Raza Vazquez Age: 57 y.o. Date of : 1960 Date of Admission: 11/16/17 Procedure Date: 11/16/17 FELLOW / GLUING MACHINE OPERATOR AUTOMATIC: Kavon Daley MD ATTENDING PHYSICIAN: Ofelia Johnson [...] patient evaluation,please review the evaluation forms in [facility]. For details on monitoredclinical parameters during the intra-service sedation time, please reviewthe procedure nurse documentation in [facility]. COMPLICATIONS: none HEMODYNAMIC FINDINGS: AO: 117/70 mmHg [...] Ofelia Johnson MD Jeffrey Jo MD CARDIAC CALIBRATION TECHNICIAN [facility] * ECHO W DOPPLER AND COLOR FLOW (11/16/2017 12:00 AM WHARF TENDER HEAD) Anatomical Region Laterality Modality Other 11/16/2017 Jeffrey Jo MD ECHOCARDIOGRAPHY RAD I[facility] * PROC CARDIOLYTE STRESS TEST (11/06/2017 12:51 PM WHARF TENDER HEAD) Narrative [facility] - 11/06/2017 12:51 PM WHARF TENDER HEAD Patient Name: Raza Vazquez : 1960 CPT Codes: 61798 Study: Exercise Myocardial Perfusion - One Day [...] Name: Raza Vazquez : 1960 CPT Codes: 60426 Study: Exercise Myocardial Perfusion - One Day [...] Lisy R Shara DAVIS ECG ORDERABLE S [facility] * PROC STRESS TEST EXERCISE (11/02/2017 5:23 PM WHARF TENDER HEAD) Narrative [facility] - 11/02/2017 5:23 PM WHARF TENDER HEAD Patient Name: Raza Vazquez Patient : 1960 CPT Codes: 32858 Study: Exercise Treadmill Electrocardiogram Date of Procedure: [...] Name: Raza Vazquez Patient :1960 CPT Codes: 10200 Study: Exercise Treadmill Electrocardiogram Date of Procedure: [...] because of dyspnea. Standing rest heart rate [id number] and rest blood pressure was 138/88mmHg. 3. [...] 11/02/2017 Lisy Olmedo MD ECG ORDERABLE S [facility] * PROSTATE SPECIFIC ANTIGEN SCREEN (09/18/2014 9:18 AM WHARF TENDER HEAD) PSA Total 1.4 < OR = 4.0 ng/mL [facility] ([facility]) Comment: This test was performed using the Siemens chemiluminescent method. Values obtained from different assay methods cannot be used interchangeably. PSA levels, regardless of value, should not be interpreted as absolute evidence of the presence or absence of disease. Test Performed at: [facility] [place] [id number] [facility] [place] [place] [address] EH PURVIS DO,MPH Venous blood specimen (specimen) 09/18/2014 9:18 AM WHARF TENDER HEAD 09/18/2014 9:19 AM WHARF TENDER HEAD Lisy Olmedo MD LAB - ELECTRICAL SUBCONTRACTOR RY ORDERABLES [facility]) Care Teams Proration Clerk Relationship Specialty Start Date End Date Kiana Cole MD [address] [place] [address] PCP - General Internal Medicine 09/16/24 Sylvain Daniels MD Family Medicine 02/15/24
--- OUTSIDE RECORDS SUMMARY | 2024-11-26 06:16 | XMS_ITS | Encounter Summary ---
Author Organization [facility] Health Address [address] [facility] [place] [address] Care Team Providers Care Break Up Worker Name Role Phone Sylvain Daniels MD Unavailable [phone] Kiana Cole MD Primary Care Provider Sean Kyle MD Primary Care Provider [phone] Kiana Cloe MD Primary Care Provider Reason for Visit * Reason Onset Date Comments Future Appointment 06/10/2024 Encounter Details Date Type Department Care Team (Late st Contact Info) Description 06/10/2024 Telephone [facility] - Cardiology [address] [facility] [place] [address] [place] [address] Andrae Norton MD [address] [facility] [place] [address] Future Appointment Social History Tobacco [...] Patient Health Questionnaire-2 Score 0 06/04/2024 [facility] - Occupational [...] place to sleep or slept in a jail (including now)? No 05/26/2024 Education Answer Date [...] st Contact Info) Description 11/28/2024 9:00 AM COLLECTOR OF PORT [facility] [address] [facility] [place] [address] Aline Finch MD [address] [place] [address] 02/10/2025 10:00 AM CDT Office Visit [facility] - Cardiology [address] [facility] [address] [place] [address] Curly Lay MD [address] [facility] [address] [place] [address] documented as of this encounter Visit Diagnoses Not on filedocumented in this encounter Care Teams Break Up Worker Relationship Specialty Start Date End Date Kiana Cole MD [address] [place] [address] PCP - General Internal Medicine 05/22/24 08/04/24 Sean Kyle MD [address] [place] [address] PCP - General Internal Medicine 08/05/24 09/15/24 Kiana Cole MD [address] [place] [address] PCP - General Internal Medicine 09/16/24 Sylvain Daniels MD Family Medicine 02/15/24 documented as of this encounter
--- OUTSIDE RECORDS SUMMARY | 2024-11-26 06:16 | XMS_ITS | Encounter Summary ---
Author Organization [facility] Health Address [address] [place] [address] Care Team Providers Care Making Machine Catcher Name Role Phone Lisy Olmedo MD Primary Care Provide r Encounter Details Date Type Department Care Team (Latest Contact Info) Description 01/29/2018 2:26 PM CDT Hospital Encounter [facility] [address] [place] [id number] Ruby Valdez MD [facility] [address] [place] [phone] [facility] Social History Tobacco Use [...] Recorded Patient Health Questionnaire-2 Score 0 09/17/2024 [facility] - [...] Coronavirus/COVID-19? No / Unsure 10/18/2022 9:47 AM CAMERA TECHNICIAN documented as of this encounter Plan of Treatment Upcoming Encounters Date Type Department Care Team (Late st Contact Info) Description 11/28/2024 9:00 AM CAMERA TECHNICIAN Office Visit [facility] - Neurology [address] [facility] [place] [address] Aline Finch MD [address] [place] [address] 02/10/2025 10:00 AM CDT Office Visit [facility] - Cardiology [address] [facility], [address] [address] Curly Lay MD [address] [place] [address] documented as of this encounter Visit Diagnoses Not on filedocumented in this encounter Additional Health Concerns Infection Onset Date Last Indicated Resolved Time COVID-19 Under Investigation 07/26/2022 07/26/2022 07/26/2022 5:54 PM CDT COVID-19 Under Investigation 04/10/2024 04/10/2024 04/10/2024 2:48 PM CDT documented as of this encounter Care Teams Making Machine Catcher Relationship Specialty Start Date End Date Lisy Olmedo MD PCP - General 04/20/09 05/09/22 documented as of this encounter
--- OUTSIDE RECORDS SUMMARY | 2024-11-26 06:16 | XMS_ITS | Referral Summary ---
Author Organization [facility] Address [address] [facility] [place] [address] Care Team Providers Care Customer Marketing Assistant Name Role Phone Sylvain Daniels MD Unavailable [phone] Kiana Cole MD Primary Care Provider Source Comments [facility],non-owned Affiliates and Associated Physician Practices is amultiple site organization consisting of ambulatory clinics and hospital sitesin [place], [place], [place] and [place]. This disclosure is being madepursuant to the Care Everywhere program and may not contain all information available regarding this patient. Last updated 18.[facility] Encounters Date Type Department Care Team Description 11/14/[address] [facility] [address] [facility] [facility] [address] [place] [address] Kiana Cole MD Update 11/11/[address] [facility] [address] [facility], [address] [address] Kiana Cole MD Opened In Error 11/07/[address] [facility] [address] [facility] [place] [address] Kiana Cole MD Order 10/28/2024 Travel 10/14/[address] [facility] [address] [facility] [facility] [address] [place] [address] Kiana Cole MD Order 10/02/[address] [facility] [address] [facility] [place] [address] Kiana Cole MD Forms 10/02/[address] [facility] [address] [facility] [place] [address] Kiana Cole MD Constipation (/) 09/25/[address] [facility] [address] [facility], [facility] [address] [place] [address] Kiana Cole MD Update; Home Health 09/17/2024 Travel 09/17/2024 8:00 AM EMISSIONS TESTING TECHNICIAN Office Visit [facility] Medicine [address] [place] [address], [address] [address] Kiana Cole MD Cerebrovascular accident (CVA), unspecified mechanism (HCC) (Primary Dx); Coronary artery disease involving [employer] heart without angina pectoris, unspecified vessel or lesion type; S/P CABG x 3; Essential hypertension; Type 2 diabetes mellitus without complication, with long-term current use of insulin (HCC); Mild persistent asthma without complication (HCC) 08/29/2024 Travel 08/29/2024 9:00 AM EMISSIONS TESTING TECHNICIAN Office Visit [facility] - Neurology [address] [facility], [facility] [place] [address] Farhat Enamorado MD Cerebrovascular accident (CVA), unspecified [...] LDL-C. Mika EATON et al. RAFFI. 2013;310(19): 0746-0900 (http://education.[employer]/faq/BOL833) CHOL/HDLC RATIO <5.0 (calc) 5.3High Non HDL [...] needs weight loss desperately and referred to psychiatric np asked him to stop naproxen Atherosclerosis of [...] Patient Health Questionnaire-2 Score 0 09/17/2024 [facility] [...] Comments Blood Pressure 124/83 09/17/2024 8:17 AM EMISSIONS TESTING TECHNICIAN Pulse 101 09/17/2024 8:17 AM EMISSIONS TESTING TECHNICIAN Temperature 35.8 C (96.5 F) 09/17/2024 8:17 AM EMISSIONS TESTING TECHNICIAN Respiratory Rate 10 08/29/2024 8:44 AM EMISSIONS TESTING TECHNICIAN Oxygen Saturation 96% 09/17/2024 8:17 AM EMISSIONS TESTING TECHNICIAN Inhaled Oxygen Concentration 21% 02/15/2024 3 :17 PM CDT Weight 120.2 kg (265 lb) 09/17/2024 8:17 AM EMISSIONS TESTING TECHNICIAN Height 193 cm (6' 4 ) 09/17/2024 8:17 AM EMISSIONS TESTING TECHNICIAN Body Mass Index 32.26 09/17/2024 8:17 AM EMISSIONS TESTING TECHNICIAN Functional Status Functional Status Response Date of [...] st Contact Info) Description 11/28/2024 9:00 AM EMISSIONS TESTING TECHNICIAN Office Visit [facility] - Neurology [address] [facility], [place] [address] Aline Finch MD [address] [place] [address] 02/10/2025 10:00 AM CDT Office Visit [facility] - Cardiology [address] [facility] [address] [place] [address] Curly Lay MD [address] [facility] [address] [place] [address] Procedures Procedure Name Priority Date/Time Associated Diagnosis Comments HEMOGLOBIN A1C - POINT OF CARE (AMB) [facility] Routine 09/17/2024 9:38 AM EMISSIONS TESTING TECHNICIAN Type 2 diabetes mellitus without complication, with long-term current use of insulin (HCC) EYE EXAM 08/11/2024 BASIC METABOLIC PANEL (CALCIUM TOTAL) Routine 06/04/2024 11:30 AM CDT ENDOSCOPY, COLON, SCREENING Routine 11/12/2020 12:12 PM EMISSIONS TESTING TECHNICIAN MICROALB/CREAT RATIO URINE RANDOM PANEL 07/23/2020 6:49 AM CDT HEPATITIS C AB W/RFLX TO HCV RNA QN PCR 07/23/2020 6:49 AM CDT from Last 3 Months or Most Recently Relevant to Health Maintenance Results * (ABNORMAL) HEMOGLOBIN A1C - POINT OF CARE (AMB) [facility] (09/17/2024 9:38 AM EMISSIONS TESTING TECHNICIAN) Hemoglobin A1c POCT 6.2(A) 4.2 - 5.8 % QC Verified Yes Yes Blood BLOOD SPECIMEN / Unknown 09/17/2024 9:38 AM EMISSIONS TESTING TECHNICIAN Kiana Cole MD LAB - POINT OF CARE ORDERABLES * EYE EXAM (08/11/2024) Anatomical Region Laterality Modality Other Narrative 08/11/2024 Ordered by an unspecified provider. Scanned Document SCANNING ONLY * (ABNORMAL) BASIC METABOLIC PANEL (CALCIUM TOTAL) (06/04/2024 11:30 AM CDT) BUN 18 7 - 26 mg/dL 06/04/2024 12:27 PM [facility] Creatinine 0.78 0.71 - 1.16 mg/dL 06/04/2024 12:27 PM [facility] Sodium 135(L) 136 - 145 mmol/L 06/04/2024 12:27 PM [facility] Potassium 4.1 3.5 - 4.5 mmol/L 06/04/2024 12:27 PM [facility] Chloride 102 98 - 107 mmol/L 06/04/2024 12:27 PM [facility] CO2 25 22 - 29 mmol/L 06/04/2024 12:27 PM [facility] Glucose 138(H) 70 - 115 mg/dL 06/04/2024 12:27 PM [facility] Calcium 9.6 8.4 - 10.2 mg/dL 06/04/2024 12:27 PM [facility] Anion Gap 8 6 - 16 06/04/2024 12:27 PM [facility] BUN/Creatinine Ratio 23 7 - 23 06/04/2024 12:27 PM [facility] Osmolality Calculated 284 275 - 295 mOsm/kg 06/04/2024 12:27 PM [facility] eGFR by CKD-EPI >90 >=90 mL/min/1.7 3 m2 06/04/2024 12:27 PM [facility] Blood BLOOD SPECIMEN / Unknown Lab Venipuncture / Unknown 06/04/2024 11:30 AM CDT 06/04/2024 11:51 AM CDT Jason Coppola MD LAB - CHEMISTRY [facility] Organization Address City/State/ZIP Co de Phone Number [address] [address], [facility] [phone] * ENDOSCOPY, COLON, SCREENING (11/12/2020 12:12 PM EMISSIONS TESTING TECHNICIAN) Report Endoscopy POC Endoscopy Department Report _ [...] colon K64.8, Other hemorrhoids CPT copyright 2019 [employer]. All rights reserved. The codes documented in this report are preliminary and upon medical billing coder review may be revised to meet current compliance requirements. Jodi Vernon MD 11/12/2020 12:57:40 PM Note Initiated On: 11/12/2020 12:12 PM Number of Addenda: [address] [address] [facility]ATION 11/12/2020 12:1 2 PM EMISSIONS TESTING TECHNICIAN Jodi Vernon MD GI PROCEDURE ORDER GISSEL [facility] MATTHEW * HEPATITIS C AB W/RFLX [...] a test for HCV RNA (test code 25498) is suggested. For additional information please refer to http://education.[employer]faq/CHT18y8 (This link is being provided for informational/ educational purposes only.) Test Performed at: [email or web address] [id number] [facility] [employer] [facility] [address] EH PURVIS DO,MPH 07/23/2020 6:49 AM CDT 07/23/2020 6:51 AM CDT Lisy Olmedo MD LAB - ELECTION WATCHER RY ORDERABLES Performing Organization Address [facility] Co de Phone Number [facility] [address] [place] [address] * MICROALB/CREAT RATIO URINE RANDOM PANEL (07/23/2020 [...] within a diagnostic category. 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
--- OUTSIDE RECORDS SUMMARY | 2024-11-26 06:16 | XMS_ITS | Clinical Summary ---
Author Organization [facility] Address [address] [place] [address] Care Team Providers Care Disability Advocate Name Role Phone Sylvain Daniels MD Unavailable [phone] Kiana Cole MD Primary Care Provider Source Comments [facility],non-owned Affiliates and Associated Physician Practices is amultiple site organization consisting of ambulatory clinics and hospital sitesin [place], [place], [place] and [place]. This disclosure is being madepursuant to the Care Everywhere program and may not contain all information available regarding this patient. Last updated 18.[facility] Allergies Active Allergy Reactions Criticality Noted Date [...] with long-term current use of insulin 05/21/2024 alf (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 05/21/2024 GERD (gastroesophageal [...] of LDL-C. Mika SS et al. RAFFI. 2013;310(79): 7295-3109 (http://education.ProteoSense.Optifreeze/faq/NCC028) CHOL/HDLC RATIO <5.0 (calc) 5.3High Non HDL [...] needs weight loss desperately and referred to microphone boom operator asked him to stop naproxen Atherosclerosis [...] Department Care Team Description 11/14/2024 Nurse Triage [facility] [address], [address] [place] [address] Kiana Cole MD Update 11/11/2024 Telephone [facility] [address] [facility], [facility] [address] [place] [address] Kiana Cole MD Opened In Error 11/07/2024 Nurse Triage [facility] [address], [address] [place] [address] Kiana Cole MD Order 10/28/2024 Travel 10/14/2024 Nurse Triage [facility] [address], [address] [place] [address] Kiana Cole MD Order 10/02/2024 Nurse Triage [facility] [address], [facility] [address] [place] [address] Kiana Cole MD Forms 10/02/2024 Nurse Triage [facility] [address], [facility] [address] [place] [address] Kiana Cole MD Constipation (/) 09/25/2024 Nurse Triage [facility] [address], [address] [address] Kiana Cole MD Update; Home Health 09/17/2024 8:00 AM CV TECH Office Visit [facility] [address] [place] [address], [address] [phone] Kiana Cole MD Cerebrovascular accident (CVA), unspecified mechanism (HCC) (Primary Dx); Coronary artery disease involving [place] heart without angina pectoris, unspecified vessel or lesion type; S/P CABG x 3; Essential hypertension; Type 2 diabetes mellitus without complication, with long-term current use of insulin (HCC); Mild persistent asthma without complication (HCC) 09/17/2024 Travel 08/29/2024 9:00 AM CV TECH Office Visit [facility]rology [address] [facility], [facility] [place] [phone] Farhat Enamorado MD Cerebrovascular accident (CVA), unspecified [...] Recorded Patient Health Questionnaire-2 Score 0 09/17/2024 [facility] [place] of Occupat ional Health - Occupational Stress [...] place to sleep or slept in a half-way (including now)? No 05/26/2024 Education Answer Date [...] Comments Blood Pressure 124/83 09/17/2024 8:17 AM CV TECH Pulse 101 09/17/2024 8:17 AM CV TECH Temperature 35.8 C (96.5 F) 09/17/2024 8:17 AM CV TECH Respiratory Rate 10 08/29/2024 8:44 AM CV TECH Oxygen Saturation 96% 09/17/2024 8:17 AM CV TECH Inhaled Oxygen Concentration 21% 02/15/2024 3 :17 PM CDT Weight 120.2 kg (265 lb) 09/17/2024 8:17 AM CV TECH Height 193 cm (6' 4 ) 09/17/2024 8:17 AM CV TECH Body Mass Index 32.26 09/17/2024 8:17 AM CV TECH Plan of Treatment Upcoming Encounters Date Type Department Care Team (Late st Contact Info) Description 11/28/2024 9:00 AM CV TECH Office Visit [facility] [facility] [place] [phone] Aline Finch MD [address] [place] [address] 02/10/2025 10:00 AM CDT Office Visit [facility] - Cardiology [address] [facility], [facility] [address] [place] [address] Curly Lay MD [address] [facility] [address] [place] [address] Health Maintenance Due Date Last Done Comments [...] CARE (AMB) [facility] Routine 09/17/2024 9:38 AM CV TECH Type 2 diabetes mellitus without complication, with long-term current use of insulin (HCC) EYE EXAM 08/11/2024 BASIC METABOLIC PANEL (CALCIUM TOTAL) Routine 06/04/2024 11:30 AM CDT ENDOSCOPY, COLON, SCREENING Routine 11/12/2020 12:12 PM CV TECH MICROALB/CREAT RATIO URINE RANDOM PANEL 07/23/2020 6:49 AM CDT HEPATITIS C AB W/RFLX TO HCV RNA QN PCR 07/23/2020 6:49 AM CDT from Last 3 Months or Most Recently Relevant to Health Maintenance Results * (ABNORMAL) HEMOGLOBIN A1C - POINT OF CARE (AMB) [facility] (09/17/2024 9:38 AM CV TECH) Hemoglobin A1c POCT 6.2(A) 4.2 - 5.8 % QC Verified Yes Yes Blood BLOOD SPECIMEN / Unknown 09/17/2024 9:38 AM CV TECH Kiana Cole MD LAB - POINT OF CARE ORDERABLES * EYE EXAM (08/11/2024) Anatomical Region Laterality Modality Other Narrative 08/11/2024 Ordered by an unspecified provider. Scanned Document SCANNING ONLY * (ABNORMAL) BASIC METABOLIC PANEL (CALCIUM TOTAL) (06/04/2024 11:30 AM CDT) [facility] BUN 18 7 - 26 mg/dL 06/04/2024 12:27 PM [facility] Creatinine 0.78 0.71 - 1.16 mg/dL 06/04/2024 12:27 PM [facility] Sodium 135(L) 136 - 145 mmol/L 06/04/2024 12:27 PM [facility] Potassium 4.1 3.5 - 4.5 mmol/L 06/04/2024 12:27 PM [facility] Chloride 102 98 - 107 mmol/L 06/04/2024 12:27 PM [facility] CO2 25 22 - 29 mmol/L 06/04/2024 12:27 PM [facility] Glucose 138(H) 70 - 115 mg/dL 06/04/2024 12:27 PM [facility] Calcium 9.6 8.4 - 10.2 mg/dL 06/04/2024 12:27 PM [facility] Anion Gap 8 6 - 16 06/04/2024 12:27 PM [facility] BUN/Creatinine Ratio 23 7 - 23 06/04/2024 12:27 PM [facility] Osmolality Calculated 284 275 - 295 mOsm/kg 06/04/2024 12:27 PM [facility] eGFR by CKD-EPI >90 >=90 mL/min/1.7 3 m2 06/04/2024 12:27 PM [facility] Blood BLOOD SPECIMEN / Unknown Lab Venipuncture / Unknown 06/04/2024 11:30 AM CDT 06/04/2024 11:51 AM CDT Jason Coppola MD LAB - CHEMISTRY [facility] Organization Address City/State/ZIP Co de Phone Number [facility] [address] [place] [address], [facility] [phone] * ENDOSCOPY, COLON, SCREENING (11/12/2020 12:12 PM CV TECH) Report Endoscopy POC Endoscopy Department Report _ [...] colon K64.8, Other hemorrhoids CPT copyright 2019 [employer]. All rights reserved. The codes documented in this report are preliminary and upon certified medical coder review may be revised to meet current compliance requirements. Jodi Vernon MD 11/12/2020 12:57:40 PM Note Initiated On: 11/12/2020 12:12 PM Number of Addenda: [address] [employer] 11/12/2020 12:1 2 PM CV TECH Jodi Vernon MD GI PROCEDURE ORDER GISSEL Performing Organization Address City/State/[facility] Co de Phone Number [facility] * HEPATITIS C AB W/RFLX TO HCV RNA QN PCR (07/23/2020 6:49 AM CDT) Hepatitis C Antibody NON-REACTI VE NON-REACT [facility] Signal to Cut-Off 0.09 <1.00 [facility] Comment: HCV antibody was non-reactive. There is no laboratory evidence of HCV infection. In most cases, no further action is required. However, if recent HCV exposure is suspected, a test for HCV RNA (test code 26351) is suggested. For additional information please refer to http://education.Miappi/faq/MGS28p7 (This link is being provided for informational/ educational purposes only.) Test Performed at: [email or web address] [id number] EH PURVIS DO,MPH 07/23/2020 6:49 AM CDT 07/23/2020 6:51 AM CDT Lisy Olmedo MD LAB - CORPORATE SALES MANAGER RY ORDERABLES Performing Organization Address [facility] Co de Phone Number [facility] [address] [place] [address] * MICROALB/CREAT RATIO URINE RANDOM PANEL (07/23/2020 6:49 AM CDT) Creatinine Urine 270 20 - 320 mg/dL [facility] Microalbumin Urine 6.0 mg/dL [facility] Comment: Reference [...] within a diagnostic category. Test Performed at: [facility] [id number] EH PURVIS DO,MPH 07/23/2020 6:49 AM CDT 07/23/2020 6:51 AM CDT Lisy Olmedo MD LAB - URINE C HEMISTRY ORDERABLES [facility] [id number] [place] [address] from Last 3 Months or Most Recently Relevant to Health Maintenance Advance Directives Documents on File Type Date Recorded Patient Campus Administrative Assistant Expl anation Durable HCPOA 09/17/2024 4:08 [...] Communication Jenn (POA) Mckee Sister Power of Switch Tender (P OA) Care Teams Disability Advocate Relationship Specialty Start Date End Date Kiana Cole MD [address] [place] [address] PCP - General Internal Medicine 09/16/24 Sylvain Daniels MD Family Medicine 02/15/24
--- NOTE | 2024-11-26 07:39 | PM.IMHP ---
H&P: HPI History of Present Illness Date/Time: 11/26/24 07:39 Chief Complaint: Weakness Narrative: 59-year-old with a history of hypertension, open heart surgery ,diabetes,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 Patient reported of having chills diarrheal stool and diaphoretic. Patient recently not on any antibiotics and also denies any abdominal pain. Patient was taking [id number] decongestion medication. Pertinent ED labs: WBC 11.5, hemoglobin 10.7, hematocrit 34.7, platelet 214, sodium 139, potassium 4.1, anion gap 13, BUN 25, creatinine 1.34, GFR greater than 60, glucose 127 UA: Nitrites and leukocyte esterase negative Positive for COVID. Negative for influenza and RSV Chest x-ray shows possible minimal central congestive changes, stable cardiomegaly, status post CABG Due to the concern from his sister since the patient lives with her and being weak with high risk of falls,she doesnt want patient to take home. Patient will be admitted under observation. Care coordination will be consulted for further plan. His creatinine has been increased from 0.3-1.34 possibly due to dehydration. Will do gentle fluid resuscitation. [facility] Past Medical History Medical History CVA (cerebral vascular accident) January 2024 History of coronary artery disease Diabetes mellitus Hypertension Basilar artery stenosis Balance disorder 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 Impaired communication with impaired cognition Vision disturbance Brainstem stroke Surgical History Surgical History History of open heart surgery Family History Family History Other Controlled diabetes mellitus with hyperglycemia Social History Social History Smoking status: Former smoker Additional smoking assessment comments: 2 cigars a month Alcohol intake: former Substance use: unknown Living arrangements: with family Additional living arrangements comments: With sister Spiritual care concerns: No Meds Home Medications and Allergies Home Medications ?Medication ?Instructions ?Recorded ?Confirmed ?Type albuterol sulfate 2.5 mg/3 mL 2.5 mg inhalation Q4H PRN 06/04/24 06/04/24 History (0.083 %) solution for nebulization Shortness Of Breath Or Wheezing acetaminophen 325 mg tablet 650 mg (2 x 325 mg) PO Q6H PRN 06/18/24 06/04/24 Rx unknown #90 tabs amlodipine 10 mg tablet 10 mg PO DAILY #30 tabs 06/18/24 Rx aspirin 81 mg chewable tablet 81 mg PO DAILY #30 tabs 06/18/24 Rx atorvastatin 40 mg tablet 40 mg PO HS #30 tabs 06/18/24 Rx buspirone 5 mg tablet 5 mg PO TID #30 tabs 06/18/24 Rx clopidogrel 75 mg tablet 75 mg PO DAILY #30 tabs 06/18/24 Rx famotidine 20 mg tablet 20 mg PO BID #60 tabs 06/18/24 Rx folic acid 1 mg tablet 1 mg PO DAILY #30 tabs 06/18/24 Rx guaifenesin 600 mg tablet, 600 mg PO BID #60 tabs 06/18/24 Rx extended release 12 hr (Mucus Relief ER) hydralazine 10 mg tablet 10 mg PO TID #90 tabs 06/18/24 Rx insulin regular human 100 unit/mL 15 unit (0.15 mL) subcut DAILY 06/18/24 Rx injection solution #100 mL ipratropium 0.5 mg-albuterol 3 mg 3 ml inhalation Q6H #100 mL 06/18/24 Rx (2.5 mg base)/3 mL nebulization soln loratadine 10 mg tablet 10 mg PO DAILY #30 tabs 06/18/24 Rx multivitamin with minerals 1 tablet PO DAILY #30 tabs 06/18/24 Rx (Multiple Vitamin-Minerals tablet) quetiapine 25 mg tablet 25 mg PO BID PRN unknown #30 tabs 06/18/24 Rx sennosides 8.6 mg-docusate sodium 2 tablet PO BID #60 caps 06/18/24 Rx 50 mg capsule thiamine HCl (vitamin B1) 100 mg 100 mg feeding tube DAILY #30 tabs 06/18/24 Rx tablet magnesium citrate 150 ml PO BID PRN constipation 10/04/24 Rx #296 mL Allergies Allergy/AdvReac Type Severity Reaction Status Date / Time lisinopril Allergy Unknown Verified 02/11/25 20:53 penicillin G Allergy Swelling Verified 11/25/24 20:53 Vital Signs Vital Signs - 24 hr 11/25/24 20:46 11/26/24 00:01 11/26/24 00:02 Temperature 102.5 F H Pulse Rate 93 86 87 Respiratory Rate 15 22 H 25 H Blood Pressure 133/74 124/77 Pulse Oximetry 97 98 98 Oxygen Delivery Room Air 11/26/24 00:15 11/26/24 00:16 11/26/24 01:13 Temperature Pulse Rate 84 84 85 Respiratory Rate 34 H 28 H 34 H Blood Pressure 115/72 Pulse Oximetry 97 97 97 Oxygen Delivery 11/26/24 01:15 11/26/24 01:34 11/26/24 02:14 Temperature 99.1 F Pulse Rate 97 Respiratory Rate 30 H Blood Pressure Pulse Oximetry 95 Oxygen Delivery Room Air 11/26/24 02:21 11/26/24 02:37 11/26/24 02:45 Temperature Pulse Rate 80 77 75 Respiratory Rate 28 H 24 H 26 H Blood Pressure Pulse Oximetry 96 97 96 Oxygen Delivery 11/26/24 02:46 11/26/24 02:47 11/26/24 03:00 Temperature Pulse Rate 77 78 73 Respiratory Rate 26 H 20 25 H Blood Pressure 104/69 Pulse Oximetry 96 96 94 Oxygen Delivery 11/26/24 03:01 11/26/24 03:25 11/26/24 03:26 Temperature Pulse Rate 73 75 73 Respiratory Rate 27 H 26 H 26 H Blood Pressure 116/72 114/70 Pulse Oximetry 95 97 97 Oxygen Delivery 11/26/24 03:30 11/26/24 03:31 11/26/24 03:32 Temperature Pulse Rate 73 71 72 Respiratory Rate 27 H 23 H 22 H Blood Pressure 100/68 Pulse Oximetry 95 96 95 Oxygen Delivery 11/26/24 04:29 11/26/24 04:30 11/26/24 04:31 Temperature Pulse Rate 67 62 65 Respiratory Rate 25 H 27 H 27 H Blood Pressure 113/74 Pulse Oximetry 97 97 97 Oxygen Delivery 11/26/24 04:57 11/26/24 05:00 11/26/24 05:01 Temperature Pulse Rate 63 64 64 Respiratory Rate 28 H 25 H 22 H Blood Pressure 118/79 Pulse Oximetry 99 100 100 Oxygen Delivery 11/26/24 05:15 11/26/24 05:16 11/26/24 07:34 Temperature 97.6 F Pulse Rate 64 64 Respiratory Rate 24 H 23 H Blood Pressure 117/70 Pulse Oximetry 95 96 Oxygen Delivery 11/26/24 07:35 Temperature 97.6 F Pulse Rate 60 Respiratory Rate 20 Blood Pressure 114/80 Pulse Oximetry 97 Oxygen Delivery Exam Narrative: GENERAL: Well-appearing, well-nourished, and in no acute distress. HEAD: Normocephalic, atraumatic. EYES: Non injected, non icteric. Left eye covered with patch is a live stroke. ENT: Nares clear, no rhinorrhea or epistaxis. NECK: Supple. CHEST: Speaking in full sentences. No respiratory distress. Lungs clear to auscultation. HEART: Regular rate and rhythm. . ABDOMEN: Soft, nondistended. Nontender to palpation. No rigidity or guarding SKIN: Warm, dry, no rash. NEURO: Left sided weakness. Alert and oriented x3. Dysarthric, chronic per family. PSYCH: Normal mood and affect. H&P: Results Labs Labs: Short CBC 11/26/24 Range/Units 01:32 WBC 11.5 H (4.5-10.0) K/mm3 Hgb 10.7 L (14.0-18.0) g/dL Hct 34.7 L (42.0-52.0) % Plt Count 214 (150-375) k/mm3 BMP 11/26/24 01:32 Sodium 139 Potassium 4.1 Chloride 102 Carbon Dioxide 24 BUN 25 H Creatinine 1.34 H Glucose 127 H Calcium 8.8 Liver Function 11/26/24 Range/Units 01:32 Total Bilirubin 0.4 (0.2-1.3) mg/dL AST 25 (17-59) U/L ALT 23 (6-50) U/L Alkaline Phosphatase 62 (38-126) U/L Albumin 3.9 (3.5-5.1) g/dL Urine 11/26/24 Range/Units 01:31 Urine Color Dark yellow (Yellow) Urine Appearance Cloudy H (Clear) Urine pH 5.0 (5.0-9.0) Ur Specific [place] 1.025 (1.001-1.035) Urine Protein 2+ H (Negative) mg/dL Urine Glucose (UA) Negative (Negative) mg/dL Assessment and Plan Assessment and plan (1) CAD (coronary artery disease): Code(s): I25.10 - Atherosclerotic heart disease of [place] coronary artery without angina pectoris Status: Acute Assessment and Plan: Status post CABG (2) Controlled diabetes mellitus with hyperglycemia: Code(s): E11.65 - Type 2 diabetes mellitus with hyperglycemia Status: Acute Assessment and Plan: Will initiate sliding scale Hypoglycemic protocol (3) Dysphagia as late effect of stroke: Code(s): I69.391 - Dysphagia following cerebral infarction Status: Acute Assessment and Plan: Consult speech therapy (4) Hypomagnesemia: Code(s): E83.42 - Hypomagnesemia Status: Acute Assessment and Plan: Magnesium 1.4 (5) COVID-19: Code(s): U07.1 - COVID-19 Status: Acute Assessment and Plan: Room air, saturating 97% Does not qualify for any Immunomodulatory Monitor vitals Plan Pending Medication reconciliation Hospitalist MIPS Advance Care Plan I have confirmed that the patient's Advanced Care Plan is present, code status is documented, or surrogate decision maker is listed in patient medical record.: Yes Medication Reconciliation I have utilized all available resources to obtain, update and review the patients current medications (includes all prescriptions, OTC, herbals, cannabis, and nutritional supplements).: Yes
[2024-11-26 10:51] LABS: Glucose Point of Care 125 mg/dl (65-105)
--- NOTE | 2024-11-26 14:16 | PCOTNOTE ---
Pt. just arrived on floor from ED, not yet had full work up or been admitted by nursing.
--- NOTE | 2024-11-26 14:23 | ADMGEN ---
This patient, Yaya Vazquez Jr., was admitted to Medical Room 255-. Patient/family oriented to hospital policies and general routines including ID bracelet, bed and alarms, visiting hours, pain management, procedures, bathroom and other care routines, personal items, smoking policy, room service/diet, and visiting hours. Information on how to activate the Rapid Response Team has been discussed. Patient/Family are encouraged to report perceived risks to care and to ask questions if they do not understand what they are told or what they should do.
--- NOTE | 2024-11-26 15:46 | PCPTNOTE ---
attempted PT eval at 1400, pt just getting to room and has not been evaluated by nursing staff yet, will follow
[2024-11-26 17:14] LABS: Glucose Point of Care 143 mg/dl (65-105)
[2024-11-26 21:55] LABS: Glucose Point of Care 110 mg/dl (65-105)
[2024-11-27 04:39] VITALS: BP 132/78; PULSE 79; RESP 16; TEMP 36.9; O2SAT 95
[2024-11-27 05:03] LABS: Hematocrit 34.9 % (42.0-52.0); Hemoglobin 10.6 g/dL (14.0-18.0); Mean Corpuscular HGB Conc 30.4 g/dl (32-36); Mean Corpuscular Hemoglobin 25.6 pg (26-34); Mean Corpuscular Volume 84.3 fl (80-100); Mean Platelet Volume 9.2 fl (7.4-10.4); Platelet Count Result 189 k/mm3 (150-375); Red Blood Count 4.14 M/mm3 (4.6-6.20); Red Cell Distribution Width 15.8 % (11.5-14.5); White Blood Count 5.7 K/mm3 (4.5-10.0)
[2024-11-27 05:29] LABS: Alanine Aminotransferase 23 U/L (6-50); Albumin Level 3.6 g/dL (3.5-5.1); Alkaline Phosphatase 57 U/L (38-126); Anion Gap 10 mmol/L (4-12); Aspartate Amino Transferase 29 U/L (17-59); Bilirubin,Total 0.4 mg/dL (0.2-1.3); Blood Urea Nitrogen 18 mg/dL (9-20); Calcium 8.5 mg/dL (8.4-10.2); Carbon Dioxide 26 mmol/L (22-30); Chloride 102 mmol/L (98-107); Estimated CRCL calculation 100 ml/min; Estimated Glomerular Filt Rate > 60; Glucose 83 mg/dL (65-110); Sodium 138 mmol/L (137-145)
[2024-11-27 08:08] LABS: Glucose Point of Care 95 mg/dl (65-105)
--- NOTE | 2024-11-27 08:34 | PM.IMPN ---
Progress Note: A&P Assessment and Plan (1) CAD (coronary artery disease): Code(s): I25.10 - Atherosclerotic heart disease of [place] coronary artery without angina pectoris Status: Acute Assessment and Plan: Status post CABG Continue aspirin and Plavix (2) Controlled diabetes mellitus with hyperglycemia: Code(s): E11.65 - Type 2 diabetes mellitus with hyperglycemia Status: Acute Assessment and Plan: Will initiate sliding scale Insulin glargine 11 units q.h.s. Hypoglycemic protocol Continue atorvastatin (3) Dysphagia as late effect of stroke: Code(s): I69.391 - Dysphagia following cerebral infarction Status: Acute Assessment and Plan: Consult speech therapy (4) Hypomagnesemia: Code(s): E83.42 - Hypomagnesemia Status: Acute Assessment and Plan: Magnesium 1.4 (5) COVID-19: Code(s): U07.1 - COVID-19 Status: Acute Assessment and Plan: Room air, saturating 97% Does not qualify for any Immunomodulatory Monitor vitals (6) BOLA (acute kidney injury): Code(s): N17.9 - Acute kidney failure, unspecified Status: Acute Assessment and Plan: Resolved Will discontinue fluid Will encourage oral intake Plan Pending Medication reconciliation Subjective Date/time seen: 11/27/24 08:34 Interval history: No acute events reported. Will discuss with care coordination and physical therapy for discharge plan Review of Systems Review of Systems: All systems reviewed & are unremarkable except as noted in HPI and below Exam Narrative: GENERAL: Well-appearing, well-nourished, and in no acute distress. HEAD: Normocephalic, atraumatic. EYES: Non injected, non icteric. Left eye covered with patch is a live stroke. ENT: Nares clear, no rhinorrhea or epistaxis. NECK: Supple. CHEST: Speaking in full sentences. No respiratory distress. Lungs clear to auscultation. HEART: Regular rate and rhythm. . ABDOMEN: Soft, nondistended. Nontender to palpation. No rigidity or guarding SKIN: Warm, dry, no rash. NEURO: Left sided weakness. Alert and oriented x3. Dysarthric, chronic per family. PSYCH: Normal mood and affect. Objective Data Vital Signs Vital Signs: Vital Signs - 24 hr 11/26/24 09:35 11/26/24 10:51 11/26/24 14:00 Temperature 97.7 F Pulse Rate 78 68 80 Respiratory Rate 20 25 H 14 Blood Pressure 116/78 123/81 132/78 Pulse Oximetry 97 98 96 11/26/24 20:52 11/27/24 04:39 Temperature 100 F H 98.4 F Pulse Rate 80 79 Respiratory Rate 20 16 Blood Pressure 142/85 H 132/78 Pulse Oximetry 94 95 Intake/Output Intake/Output: Intake & Output 11/24/24 11/25/24 11/26/24 11/27/24 23:59 23:59 23:59 23:59 Intake Total 2180 110 Output Total 400 700 Balance 1780 -590 Meds/Results Medications: Active Medications Generic Name Dose Route Start Last Admin Trade Name Freq PRN Reason Stop Dose Admin Acetaminophen 650 mg 11/26/24 04:51 Acetaminophen 325 Mg Tablet PO Q4H PRN Mild Pain (1-3) or Fever Dextrose 12.5 gm 11/26/24 04:45 Dextrose 50% 25 Gm/50 Ml Syringe IV PUSH PRN PRN Hypoglycemia Protocol Dextrose 12.5 gm 11/26/24 17:44 Dextrose 50% 25 Gm/50 Ml Syringe IV PUSH PRN PRN Hypoglycemia Protocol Glucagon 1 mg 11/26/24 04:45 Glucagon For Inj 1 Mg Vial IM PRN PRN Hypoglycemia Protocol Glucagon 1 mg 11/26/24 17:44 Glucagon For Inj 1 Mg Vial IM PRN PRN Hypoglycemia Protocol Glucose 15 gm 11/26/24 04:45 Glucose Oral Gel 15 Gm Of Glucse In 37.5 Gm Tube PO PRN PRN Hypoglycemia Protocol Glucose 15 gm 11/26/24 17:44 Glucose Oral Gel 15 Gm Of Glucse In 37.5 Gm Tube PO PRN PRN Hypoglycemia Protocol Lactated Ringer's 1,000 mls @ 100 mls/hr 11/26/24 04:45 11/26/24 22:08 Lr - Lactated Ringers Iv IV CONT 100 mls/hr .Q10H PAULO Administration Dextrose 1,000 mls @ 100 mls/hr 11/26/24 04:45 Dextrose 5% 1,000 Ml IVPB PRN PRN Hypoglycemia Protocol Dextrose 1,000 mls @ 100 mls/hr 11/26/24 17:44 Dextrose 5% 1,000 Ml IVPB PRN PRN Hypoglycemia Protocol Insulin Aspart 2 - 5 units 11/26/24 08:00 11/26/24 17:40 Insulin Aspart (*Bkc) 100 Units/Ml SUB-Q Not Given TIDWM ON LICENSE OF [facility] Protocol Insulin Aspart 1 - 2 units 11/26/24 21:00 11/26/24 22:09 Insulin Aspart (*Bkc) 100 Units/Ml SUB-Q Not Given HS PAULO Protocol Insulin Aspart 2 - 5 units 11/27/24 08:00 Insulin Aspart (*Bkc) 100 Units/Ml SUB-Q TIDWM PAULO Protocol Ondansetron HCl 4 mg 11/26/24 04:51 Ondansetron Inj 4 Mg/2 Ml Vial IV PUSH Q4H PRN Nausea Radiology Results: ITS Impressions Chest X-Ray 11/26/24 05:45 Impression: Possible minimal central congestive change. Stable cardiomegaly, status post CABG. Labs Labs: Laboratory Results - last 24 hr 11/26/24 11/26/24 11/26/24 10:43 14:48 16:51 WBC RBC Hgb Hct MCV MCH MCHC RDW Plt Count MPV Sodium Potassium Chloride Carbon Dioxide Anion Gap BUN Creatinine Estim Creat Clear Calc Estimated GFR Glucose POC Capillary Glucose 125 H 143 H Calcium Magnesium 2.0 Total Bilirubin AST ALT Alkaline Phosphatase Total Protein Albumin 11/26/24 11/27/24 11/27/24 20:56 04:49 07:52 WBC 5.7 RBC 4.14 L Hgb 10.6 L Hct 34.9 L MCV 84.3 MCH 25.6 L MCHC 30.4 L RDW 15.8 H Plt Count 189 MPV 9.2 Sodium 138 Potassium 4.0 Chloride 102 Carbon Dioxide 26 Anion Gap 10 BUN 18 Creatinine 0.90 Estim Creat Clear Calc 100 Estimated GFR > 60 Glucose 83 POC Capillary Glucose 110 H 95 Calcium 8.5 Magnesium Total Bilirubin 0.4 AST 29 ALT 23 Alkaline Phosphatase 57 Total Protein 7.0 Albumin 3.6 Hospitalist MIPS Advance Care Plan I have confirmed that the patient's Advanced Care Plan is present, code status is documented, or surrogate decision maker is listed in patient medical record.: Yes Medication Reconciliation I have utilized all available resources to obtain, update and review the patients current medications (includes all prescriptions, OTC, herbals, cannabis, and nutritional supplements).: Yes
[2024-11-27] MEDS: busPIRone HCL 5 MG TABLET PO ×2 (09:29→16:50)
[2024-11-27] MEDS: guaiFENesin 12 HR 600 MG TABCR PO ×2 (09:29→20:36)
[2024-11-27] MEDS: ASPIRIN 81 MG CHEWABLE TABLET PO (09:29)
[2024-11-27] MEDS: amLODIPine BESYLATE 10 MG TABLET PO (09:29)
[2024-11-27] MEDS: CLOPIDOGREL BISULFATE 75 MG TABLET PO (09:29)
[2024-11-27] MEDS: FAMOTIDINE 20 MG TABLET PO ×2 (09:29→20:36)
[2024-11-27] MEDS: FOLIC ACID 1 MG TABLET PO (09:29)
[2024-11-27 12:15] LABS: Glucose Point of Care 114 mg/dl (65-105)
[2024-11-27 14:00] VITALS: BP 124/75; PULSE 64; RESP 15; TEMP 36.1; O2SAT 99
--- NOTE | 2024-11-27 14:40 | P.DS_ITS ---
DS: Admitting Diagnosis Discharge Date 11/27/2024 Admitting Diagnosis COVID DS: Discharge Diagnosis Discharge Diagnosis (1) CAD (coronary artery disease): Code(s): I25.10 - Atherosclerotic heart disease of [place] coronary artery without angina pectoris Status: Acute Assessment and Plan: Status post CABG Continue aspirin and Plavix (2) Controlled diabetes mellitus with hyperglycemia: Code(s): E11.65 - Type 2 diabetes mellitus with hyperglycemia Status: Acute (3) Dysphagia as late effect of stroke: Code(s): I69.391 - Dysphagia following cerebral infarction Status: Acute (4) Hypomagnesemia: Code(s): E83.42 - Hypomagnesemia Status: Acute Assessment and Plan: Magnesium 1.4 (5) COVID-19: Code(s): U07.1 - COVID-19 Status: Acute Assessment and Plan: Room air, saturating 97% Does not qualify for any Immunomodulatory Monitor vitals (6) BOLA (acute kidney injury): Code(s): N17.9 - Acute kidney failure, unspecified Status: Acute Assessment and Plan: Resolved Will discontinue fluid Will encourage oral intake Plan Pending Medication reconciliation DS: Summary Hospital Course Hospital Course: 59-year-old with a history of hypertension, open heart surgery ,diabetes,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 Patient reported of having chills diarrheal stool and diaphoretic. Patient recently not on any antibiotics and also denies any abdominal pain. Patient was taking [id number] decongestion medication. Pertinent ED labs: WBC 11.5, hemoglobin 10.7, hematocrit 34.7, platelet 214, sodium 139, potassium 4.1, anion gap 13, BUN 25, creatinine 1.34, GFR greater than 60, glucose 127 UA: Nitrites and leukocyte esterase negative Positive for COVID. Negative for influenza and RSV Chest x-ray shows possible minimal central congestive changes, stable cardiomegaly, status post CABG Due to the concern from his sister since the patient lives with her and being weak with high risk of falls,she doesnt want patient to take home. Patient will be admitted under observation. Care coordination will be consulted for further plan. His creatinine has been increased from 0.3-1.34 possibly due to dehydration. Will do gentle fluid resuscitation. 11/27: His Cr is improved. Advise oral hydration. Discharged to [place]. Status at Discharge Cognitive/behavioral status at discharge: Stable Time Spent with Patient Time attestation: Total time spent providing and/or coordinating discharge services: 45 minute Exam Narrative: GENERAL: Well-appearing, well-nourished, and in no acute distress. HEAD: Normocephalic, atraumatic. EYES: Non injected, non icteric. Left eye covered with patch is a live stroke. ENT: Nares clear, no rhinorrhea or epistaxis. NECK: Supple. CHEST: Speaking in full sentences. No respiratory distress. Lungs clear to auscultation. HEART: Regular rate and rhythm. . ABDOMEN: Soft, nondistended. Nontender to palpation. No rigidity or guarding SKIN: Warm, dry, no rash. NEURO: Left sided weakness. Alert and oriented x3. Dysarthric, chronic per family. PSYCH: Normal mood and affect. DS: Data Data Completed and Pending Labs on day of discharge: Labs from last 24 hours 11/27/24 11/27/24 11/27/24 11:37 07:52 04:49 WBC 5.7 RBC 4.14 L Hgb 10.6 L Hct 34.9 L MCV 84.3 MCH 25.6 L MCHC 30.4 L RDW 15.8 H Plt Count 189 MPV 9.2 Sodium 138 Potassium 4.0 Chloride 102 Carbon Dioxide 26 Anion Gap 10 BUN 18 Creatinine 0.90 Estim Creat Clear Calc 100 Estimated GFR > 60 Glucose 83 POC Capillary Glucose 114 H 95 Calcium 8.5 Magnesium Total Bilirubin 0.4 AST 29 ALT 23 Alkaline Phosphatase 57 Total Protein 7.0 Albumin 3.6 11/26/24 11/26/24 11/26/24 20:56 16:51 14:48 WBC RBC Hgb Hct MCV MCH MCHC RDW Plt Count MPV Sodium Potassium Chloride Carbon Dioxide Anion Gap BUN Creatinine Estim Creat Clear Calc Estimated GFR Glucose POC Capillary Glucose 110 H 143 H Calcium Magnesium 2.0 Total Bilirubin AST ALT Alkaline Phosphatase Total Protein Albumin Discharge Plan Discharge Attending physician on discharge: Edu Polanco Discharging Clinician: Edu Polanco Patient Disposition: [place] Correction/Asst Living Activity: as tolerated Diet: diabetic Discharge Instructions: Check blood pressure 1 to 2 times a day. Record and bring into your doctor for review. Call your doctor if your blood pressure is greater than 180/110 or less than 90/45. Walk with cane or other assist device. Take precautions to avoid falls. Rise slowly from a lying or sitting position. Pause before standing or walking. Contact your doctor or call 911 and come to the Emergency Room if you have any type of trauma, lightheadedness with standing or other worrisome symptoms. Avoid NSAIDs (ibuprofen, naproxen, Aleve). Tylenol is safe to take. Follow-up with your primary care provider in 1-2 weeks. Please call for appointment. Thank you for using [facility] for your health care needs. Patient Instructions: Antibiotic Form Patient Language: Bulgarian Stand Alone Forms: General Discharge Information Discharge Medications: Continued insulin glargine [Lantus U-100 Insulin] 100 unit/mL solution 11 unit subcut QPM buspirone 5 mg Tablet 5 mg PO BID ipratropium-albuterol 0.5 mg-3 mg(2.5 mg base)/3 mL Solution For Nebulization 3 ml INHALATION Q12H guaifenesin [Mucus Relief ER] 600 mg Tablet Extended Release 12hr 600 mg PO BID Qty: 60 0RF atorvastatin 40 mg Tablet 40 mg PO HS Qty: 30 0RF acetaminophen 325 mg Tablet 650 mg PO Q6H PRN (Reason: unknown) Qty: 90 0RF clopidogrel 75 mg Tablet 75 mg PO DAILY Qty: 30 0RF famotidine 20 mg Tablet 20 mg PO BID Qty: 60 0RF amlodipine 10 mg Tablet 10 mg PO DAILY Qty: 30 0RF aspirin 81 mg Tablet,Chewable 81 mg PO DAILY Qty: 30 0RF folic acid 1 mg Tablet 1 mg PO DAILY Qty: 30 0RF Multiple Vitamin-Minerals Tablet 1 tablet PO DAILY Qty: 30 0RF loratadine 10 mg Tablet 10 mg PO DAILY Qty: 30 0RF Date of admission: 11/26/24 04:51 Primary Care Provider: PHYSICIAN NOT ON STAFF,NONSTAFF Admitting Provider: Adele Humphreys Attending physician on admission: Adele Humphreys Condition: Stable
--- NOTE | 2024-11-27 15:37 | PCRCNOTE ---
Window of time for administration has passed. See next scheduled administration.
[2024-11-27 16:32] LABS: Glucose Point of Care 128 mg/dl (65-105)
[2024-11-27] MEDS: INSULIN GLARGINE (*BKC) 100 UNITS/ML 11 UNITS SUB-Q (16:50)
[2024-11-27 20:09] VITALS: BP 146/83; PULSE 73; RESP 18; TEMP 37.1; O2SAT 94
[2024-11-27] MEDS: ATORVASTATIN 40 MG TABLET PO (20:36)
[2024-11-27 22:17] LABS: Glucose Point of Care 163 mg/dl (65-105)
== END 2024-11-27 21:18 ==
LOC: ANHED 11-26 05:33 → ANH2MED 11-26 14:29 → ANH3MEDSUR 11-28 07:16
PROVIDERS: Admitting Provider General Practice; Emergency Provider Student in an Organized Health Care Education/Training Program; Visit Provider General Practice
DX: U07.1 COVID-19 (principal); I25.10 Atherosclerotic heart disease of native coronary artery without angina pectoris; I10 Essential (primary) hypertension; E11.65 Type 2 diabetes mellitus with hyperglycemia; E83.42 Hypomagnesemia; N17.9 Acute kidney failure, unspecified; I69.351 Hemiplegia and hemiparesis following cerebral infarction affecting right dominant side; I69.391 Dysphagia following cerebral infarction; R13.10 Dysphagia, unspecified; D64.9 Anemia, unspecified; Z91.81 History of falling; Z87.891 Personal history of nicotine dependence; Z95.1 Presence of aortocoronary bypass graft; Z79.82 Long term (current) use of aspirin; Z79.4 Long term (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; Z79.51 Long term (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 of inhaled steroids; Z79.899 Other long term (current) drug therapy
CPT/HCPCS: 36415; 71045; 80053; 81001; 82948; 83735; 85025; 85027; 87637; 97161; 97166; 99285; A9270; G0378; J1815; J3475; J7120

== ENCOUNTER 2025-03-01 19:19 | Emergency (ER) | payer MEDICARE, SELFPAY ==
[2025-03-01] VITALS (10 sets, daily range): BP systolic 115–137; BP diastolic 73–87; PULSE 58–82; RESP 16–25; TEMP 36.3; O2SAT 97–100
--- OUTSIDE RECORDS SUMMARY | 2025-03-01 19:21 | XMS_ITS ---
Author Organization Unknown Patient Care team information Name Category Status Period Participants - - Proposed period not known - - - Proposed period not known -
--- OUTSIDE RECORDS SUMMARY | 2025-03-01 19:21 | XMS_ITS | Encounter Summary ---
Author Organization [facility] Health Address [address] [place] [address] Care Team Providers Care Live In Housekeeper Name Role Phone Lisy Olmedo MD Primary Care Provide r Encounter Details Date Type Department Care Team (Latest Contact Info) Description 01/29/2018 2:26 PM CDT Hospital Encounter [facility] [address] [place] [id number] Ruby Valdez MD [facility] [address] [place] [phone] [facility] Social History Tobacco Use [...] Recorded Patient Health Questionnaire-2 Score 0 09/17/2024 [facility] - Occupational Stress [...] Industry Job Start Date Job End Date [employer] Not on file Not on file Not on file [employer] Not on file Not on file Not on file COVID-19 Exposure Response Date Recorded In the last 10 days, have andrey lynn been in contact with someone who was confirmed or suspected to have Coronavirus/COVID-19? No / Unsure 10/18/2022 9:47 AM APPLICATIONS ENGINEER documented as of this encounter Functional Status * Question Answer Date of Assessment Author Q1: How often do you have a drink containing alcohol? Never 05/25/2024 9:43 PM Yonatan yWlie RN Q2: How many drinks containing alcohol do you have on a typical day when you are drinking? Patient does not drink 05/25/2024 9:43 PM SHIKHAT Triny Fernández RN Q3: How often do you have six or more drinks on one occasion? Never 05/25/2024 9:43 PM Yonatan Wylie RN * Audit-C Score Answer Date of Assessment Author 0 05/25/2024 9:43 PM SHIKHAT Triny Irizarry RN * Over the past 2 weeks, how often have you been bothered by any of the following problems? Question Answer Date of Assessment Author Little interest or pleasure in doing things Not at all 09/17/2024 8:20 AM APPLICATIONS ENGINEER Bienvenido Brooks MA Feeling down, depressed, or hopeless Not at all 09/17/2024 8:20 AM APPLICATIONS ENGINEER Bienvenido Brooks MA Patient Health Questionnaire-2 Score 0 09/17/2024 8:20 AM APPLICATIONS ENGINEER Kirt Brooks MA * Question Answer Date of Assessment Author Trouble falling or staying asleep, or sleeping too much Not at all 09/17/2023 1:24 PM APPLICATIONS ENGINEER Alice Balbuena SN Feeling tired or having derek le energy Not at all 09/17/2023 1:24 PM APPLICATIONS ENGINEER Alice Balbuena SN Poor appetite or overeating Not at all 09/17/2023 1: 24 PM APPLICATIONS ENGINEER Alice Balbuena SN Feeling bad about yourself - or that you are a failure or have let yourself or your family down Not at all 09/17/2023 1:24 PM APPLICATIONS ENGINEER Alice Moran SN Trouble concentrating on thi ngs, such as reading the newspaper or watching television Not at all 09/17/2023 1:24 PM APPLICATIONS ENGINEER Alice Balbuena SN Moving or speaking so slowly that other people could have noticed? Or the opposite - being so fidgety or restless that you have been moving around a lot more than usual. Not at all 09/17/2023 1:24 PM Alice Dos Santos SN Thoughts that you would be b jones off or hurting yourself in some way Not at all 09/17/2023 1:24 PM Alice Dos Santos SN Patient Health Questionnaire -9 Score 0 09/17/2023 1:24 PM Alice Dos Santos SN * Over the last 2 weeks, how often have you been bothered by any of the following problems? Question Answer Date of Assessment Author Feeling nervous, anxious, or on edge 0 09/17/2024 8:20 AM Bienvenido Carver MA Not being able to stop or co ntrol worrying 0 09/17/2024 8:20 AM Bienvenido Carver MA Worrying too much about diff erent things 0 09/17/2024 8:20 AM Bienvenido Carver MA Trouble relaxing 0 09/17/2024 8:20 AM Bienvenido Nicolas MA Being so restless that it is hard to sit still 0 09/17/2024 8:20 AM Bienvenido Carver MA Becoming easily annoyed or irritable 0 09/17/2024 8:20 AM Bienvenido Carver MA Feeling afraid as if somethi ng awful might happen 0 09/17/2024 8:20 AM Bienvenido Carver MA BENJI-7 Total Score 0 09/17/2024 8:20 AM Bienvenido Carver MA documented as of this encounter Plan of Treatment Upcoming Encounters Date Type Department Care Team (Late st Contact Info) Description 03/11/2025 8:40 AM CDT Office Visit [facility] - [facility] Medicine [address] [place] [phone] Kiana Cole MD [address] [place] [address] documented as of this encounter Visit Diagnoses Not on filedocumented in this encounter Additional Health Concerns Infection Onset Date Last Indicated Resolved Time COVID-19 Under Investigation 07/26/2022 07/26/2022 07/26/2022 5:54 PM CDT COVID-19 Under Investigation 04/10/2024 04/10/2024 04/10/2024 2:48 PM CDT documented as of this encounter Care Teams Live In Housekeeper Relationship Specialty Start Date End Date Lisy Olmedo MD PCP - General 04/20/09 05/09/22 documented as of this encounter
--- OUTSIDE RECORDS SUMMARY | 2025-03-01 19:21 | XMS_ITS | Clinical Summary ---
Author Organization [facility] Address [address] [facility] [facility] [place] [address] Care Team Providers Care Technology Adoption Manager Name Role Phone Sylvain Daniels MD Unavailable [phone] Kiana Cole MD Primary Care Provider Source Comments [facility],non-owned Affiliates and Associated Physician Practices is amultiple site organization consisting of ambulatory clinics and hospital sitesin [place], [place], [place] and [place]. This disclosure is being madepursuant to the Care Everywhere program and may not contain all information available regarding this patient. Last updated 18.[facility] Allergies Active Allergy Reactions Criticality Noted Date Comments Lisinopril Angioedema High 02/22/2018 Lisinopril Other,Urticaria Medium 02/15/2024 Hives Penicillins Swelling 01/24/2018 eyes swelled shut 50 years ago Penicillin V Rash Medium 09/28/2011 Penicillins Other,Urticaria Medium 02/15/2024 Hives Medications * Be aware that medications may not be up to date on this document. Alwaysverify current medications with the patient. albuterol (Proventil;Catracho tolin) (2.5 MG/3ML) 0.083% nebulizer solution Inhale 2.5 (two and one-half) mg by mouth every 4 hours as needed for Shortness of Breath or Wheezing 4 Active senna-docusate (Senokot-S) 8.6-50 MG tablet 2 (two) tablets by Enteral Tube route 2 times daily 4 Active Additional Information Patient taking differently:2 tablet Enteral Tube 2 TIMES DAILY,Using PRN, Reported on 08/29/2024 multiple vitamins with minerals tablet 1 (one) tablet by Enteral Tube route once daily 4 Active acetaminophen (Tylenol) 325 MG tablet 2 (two) tablets by Per G Tube route every 6 hours as needed 4 Active QUEtiapine (SEROquel) 25 MG tablet Insert 1 (one) tablet into appropriate tube 2 times daily as needed 4 Active albuterol-ipra tropium (Duo-Neb) 0.5-2.5 (3) MG/3ML nebulizer solutionIndica tions:Asthma Inhale 3 mL by mouth every 6 hours Reasons: Asthma 200 mL 5 4 Active amLODIPine (Norvasc) 10 MG tablet 1 (one) tablet by Enteral Tube route once daily 90 tablet 3 4 Active aspirin (Aspirin) 81 MG chew tablet 1 (one) tablet by Enteral Tube route once daily 90 tablet 3 4 Active atorvastatin (Lipitor) 40 MG tablet 1 (one) tablet by Enteral Tube route at bedtime 90 tablet 3 4 Active clopidogrel (plaVIX) 75 MG tablet 1 (one) tablet by Enteral Tube route once daily 90 tablet 3 4 Active famotidine (Pepcid) 20 MG tablet 1 (one) tablet by Enteral Tube route 2 times daily 180 tablet 3 4 Active folic acid (Folvite) 1 MG tablet 1 (one) tablet by Enteral Tube route once daily 90 tablet 3 4 Active busPIRone (Buspar) 5 MG tablet 1 (one) tablet by Per G Tube route 3 times daily Taking bid 180 tablet 3 4 Active insulin glargine (Lantus/Semgle e) 100 units/mL pen Inject 11 (eleven) Units subcutaneously at bedtime 15 mL 3 4 Active loratadine (Claritin) 10 MG tablet 1 (one) tablet by Per G Tube route once daily 90 tablet 3 4 Active Active Problems Problem Noted Date Diagnosed Date Difficulty eating 08/26/2024 PVC (premature ventricular contraction) 08/12/20 24 Assessment & Plan (08/12/2024 11:02 AM CDT): [...] with long-term current use of insulin 05/21/2024 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 Mika SS et al. RAFFI. 2013;310(19): 1410-2903 (http://education.[employer]/faq/PEY113) CHOL/HDLC RATIO <5.0 (calc) 5.3High Non HDL [...] needs weight loss desperately and referred to outside dealer sales representative asked him to stop naproxen Atherosclerosis of [...] Encounters Date Type Department Care Team Description 01/26/2025 Travel 01/21/2025 Nurse Triage 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 [employer] Not on file Not on file Not on file Last Filed Vital Signs Vital Sign Reading Time Taken Comments Blood Pressure 124/83 09/17/2024 8:17 AM PRINTING GRAY CLOTH TENDER Pulse 101 09/17/2024 8:17 AM PRINTING GRAY CLOTH TENDER Temperature 35.8 C (96.5 F) 09/17/2024 8:17 AM PRINTING GRAY CLOTH TENDER Respiratory Rate 10 08/29/2024 8:44 AM PRINTING GRAY CLOTH TENDER Oxygen Saturation 96% 09/17/2024 8:17 AM PRINTING GRAY CLOTH TENDER Inhaled Oxygen Concentration 21% 02/15/2024 3 :17 PM CDT Weight 120.2 kg (265 lb) 09/17/2024 8:17 AM PRINTING GRAY CLOTH TENDER Height 193 cm (6' 4 ) 09/17/2024 8:17 AM PRINTING GRAY CLOTH TENDER Body Mass Index 32.26 09/17/2024 8:17 AM PRINTING GRAY CLOTH TENDER Plan of Treatment Upcoming Encounters Date Type Department Care Team (Late st Contact Info) Description 03/11/2025 8:40 AM CDT Office Visit [facility] - Family Medicine [address], [facility] [address] [place] [address] Kinaa Cole MD [address] [place] [address] Health Maintenance Due Date Last Done Comments [...] 2024 09/17/2023, 09/17/2023, 03/31/2022, Additional history exists DEPRESSION SCREENING 10/15/2024 05/22/2024, 10/18/2022, 05/10/2022 DIABETES - URINE PROTEIN SCREENING 10/15/2024 07/23/2020, 01/20/2019, 11/19/2015 DIABETES-HGB A1C 03/18/2025 09/17/2024, 05/2024, 05/22/2024, Additional history exists DIABETES-SERUM CREATININE 06/04/20252023, 06/03/2024, 06/02/2024, Additional history exists INFLUENZA VACCINE (Season Ended) 2025 09/17/2023, 06/29/2019, 09/03/2018, Additional history exists DIABETES-FOOT EXAM WITH MONOFILAMENT [...] complete this topic MENINGOCOCCAL (Group B) VACCINE SHARED DECISION-MAKING Aged Out No longer eligible based on patient's age to complete this topic MENINGOCOCCAL GROUPS A/C/Y/W VACCINE Aged Out No longer eligible based on patient's age to complete this topic Procedures Procedure Name Priority Date/Time Associated Diagnosis Comments HEMOGLOBIN A1C - POINT OF CARE (AMB) SMGS Routine 09/17/2024 9:38 AM PRINTING GRAY CLOTH TENDER Type 2 diabetes mellitus without complication, with long-term current use of insulin EYE EXAM 08/11/2024 BASIC METABOLIC PANEL (CALCIUM TOTAL) Routine 06/04/2024 11:30 AM CDT ENDOSCOPY, COLON, SCREENING Routine 11/12/2020 12:12 PM PRINTING GRAY CLOTH TENDER MICROALB/CREAT RATIO URINE RANDOM PANEL 07/23/2020 6:49 AM CDT HEPATITIS C AB W/RFLX TO HCV RNA QN PCR 07/23/2020 6:49 AM CDT from Last 3 Months or Most Recently Relevant to Health Maintenance Results * (ABNORMAL) HEMOGLOBIN A1C - POINT OF CARE (AMB) SMGS (09/17/2024 9:38 AM PRINTING GRAY CLOTH TENDER) Hemoglobin A1c POCT 6.2(A) 4.2 - 5.8 % QC Verified Yes Yes Blood BLOOD SPECIMEN / Unknown 09/17/2024 9:38 AM PRINTING GRAY CLOTH TENDER us Kiana Cole MD LAB - POINT OF CARE ORD ERABLES Final Result * EYE EXAM (08/11/2024) Anatomical Region Laterality Modality Other Narrative 08/11/2024 Ordered by an unspecified provider. us Scanned Document SCANNING ONLY Final Result * (ABNORMAL) BASIC METABOLIC PANEL (CALCIUM TOTAL) [...] 11:30 AM CDT 06/04/2024 11:51 AM CDT us Jason Coppola MD LAB - CHEMISTRY ORDERABLES Fin al Result [id number] [place] [address], [facility] [phone] * ENDOSCOPY, COLON, SCREENING (11/12/2020 12:12 PM PRINTING GRAY CLOTH TENDER) Report Endoscopy POC Endoscopy Department Report _ Patient Name: Yaya Solorio Procedure Date: 11/12/2020 12:12 PM Date of [...] colon K64.8, Other hemorrhoids CPT copyright 2019 [employer]. All rights reserved. The codes documented in this report are preliminary and upon studio associate review may be revised to meet current compliance requirements. Jodi Vernon MD 11/12/2020 12:57:40 PM Note Initiated On: 11/12/2020 12:12 PM Number of Addenda: [address] [address] [facility] PROVATION 11/12/2020 12:1 2 PM PRINTING GRAY CLOTH TENDER us Jodi Vernon MD GI PROCEDURE ORDERABLES Ed ited Result - Final [facility] SUDEEPATION * HEPATITIS C AB W/RFLX TO HCV RNA QN PCR (07/23/2020 6:49 AM CDT) Pathologist [facility] Hepatitis C Antibody NON-REACTI VE NON-REACT [facility]IDA [facility] Signal to Cut-Off 0.09 <1.00 [facility] Comment: HCV antibody was non-reactive. There is no laboratory evidence of HCV infection. In most cases, no further action is required. However, if recent HCV exposure is suspected, a test for HCV RNA (test code 63406) is suggested. For additional information please refer to http://education.[employer]ik[employer]/faq/WDA18a0 (This link is being provided for informational/ educational purposes only.) Test Performed at: [facility] [id number] E[facility] PURVIS DO,MPH 07/23/2020 6:49 AM CDT 07/23/2020 6:51 AM CDT Lisy Olmedo MD LAB - CHEMISTRY ORDER GISSEL Final Result Performing Organization Address City/[facility]/ZIP Co de Phone Number [facility] [address] [place] [phone] * MICROALB/CREAT RATIO URINE RANDOM PANEL (07/23/2020 6:49 AM CDT) Pathologist [facility] Creatinine Urine 270 20 - 320 mg/dL [...] within a diagnostic category. Test Performed at: [facility] [id number] E[facility] PURVIS DO,MPH 07/23/2020 6:49 AM CDT 07/23/2020 6:51 AM CDT us Lisy Olmedo MD LAB - URINE CHEMISTRY ORDERABLES Final Result [facility] [address] [place] [address] from Last 3 Months or Most Recently Relevant to Health Maintenance Insurance MEDICARE [address] [place] [id number] [facility] MEDICARE [id number]|2025-03-01 19:21:00|2025-03-01 19:21:00|XMS_ITS|RONALD HARRELL|External Medical Summaries|[id number]|" Encounter Summary Created on: March 01, 2025 Yaya Solorio Jr. : 1960 Sex: Male Author Organization [facility] Address [address] [place] [address] Care Team Providers Care Technology Adoption Manager Name Role Phone Sylvain Daniels MD Unavailable [phone] Kiana Cole MD Primary Care Provider Sean Kyle MD Primary Care Provider [phone] Kiana Cole MD Primary Care Provider Reason for Visit * Reason Onset Date Comments Future Appointment 06/10/2024 Encounter Details Date Type Department Care Team (Late st Contact Info) Description 06/10/2024 Telephone [facility] - Cardiology [address], [address] [place] [address] Andrae Norton MD [address] [facility] [place] [address] Future Appointment Social History Tobacco Use Types Packs/Day Years Used Date Smoking Tobacco: Former Cigars S tarted: 1998 Smokeless Tobacco: Never Comments:3-4 times / month-2 [...] Recorded Patient Health Questionnaire-2 Score 0 06/04/2024 [facility] of Occupat ional [facility] - Occupational Stress Questionnaire Answer Date [...] 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 Answer Date of Assessment Author No 05/26/2024 6:37 AM Triny Mcarthur RN * Is person blind or have serious difficulty seeing? Answer Date of Assessment Author No 05/26/2024 6:37 AM Triny Mcarthur RN * Does person have serious difficulty walking/climbing stairs? Answer Date of Assessment Author Yes 05/26/2024 6:37 AM Triny Mcarthur RN * Does person have difficulty dressing/bathing? Answer Date of Assessment Author Yes 05/26/2024 6:37 AM Triny Mcarthur RN * Does person have difficulty doing errands alone? Answer Date of Assessment Author Yes 05/26/2024 6:37 AM Triny Mcarthur RN documented as of this encounter Mental Status * Does person have difficulty concentrating/remembering/making decisions? Answer Entry Date Author No 05/26/2024 6:37 AM Triny Mcarthur RN documented in this encounter Miscellaneous Notes * Telephone Encounter - Christi Betancur - 06/10/2024 3:10 PM CDT Call out to patient to have him scheduled to come into clinic as a hospital f/u There was no answer at his home phone and a vcmail left I then called his mobile number and spoke with Jenn (JUDY) She stated pt is in a facility [...] arrange for outpatient follow up for Mr. Solorio in 2-3 weeks He will also need an event monitor sent with him. Can someone order the event monitor under my nameand I can sign the cosigned order. Thanks, JM documented in this encounter Plan of Treatment Upcoming Encounters Date Type Department Care Team (Late st Contact Info) Description 03/11/2025 8:40 AM CDT Office Visit [facility] - Family Medicine [address] [address] Kiana Cole MD [address] [place], [place] [id number] documented as of this encounter Visit Diagnoses Not on filedocumented in this encounter Care Teams Technology Adoption Manager Relationship Specialty Start Date End Date Kiana Cole MD [address] [place], [place] [id number] PCP - General Internal Medicine 05/22/24 08/04/24 Sean Kyle MD [address] [place] [address] PCP - General Internal Medicine 08/05/24 09/15/24 Kiana Cole MD [address] [place] [address] PCP - General Internal Medicine 09/16/24 Sylvain Daniels MD Family Medicine 02/15/24 documented as of this encounter "
--- OUTSIDE RECORDS SUMMARY | 2025-03-01 19:21 | XMS_ITS | Encounter Summary ---
Author Organization [facility] Address [address] [facility] [place] [address] Care Team Providers Care Pulp Screen Operator Name Role Phone Lisy Olmedo MD Primary Care Provide r Sylvain Daniels MD Primary Care Provider + [phone] None, Physician Primary Care Provider Unavailabl e Sylvain Daniels MD Unavailable [phone] Sylvain Daniels MD Unavailable [phone] Sylvain Daniels MD Unavailable [phone] Sylvain Daniels MD Primary Care Provider + [phone] Kiana Cole MD Primary Care Provider Sean Kyle MD Primary Care Provider [phone] Kiana Cole MD Primary Care Provider Reason for Visit * Reason Onset Date Comments MEDICATION REFILL 11/19/2021 Encounter Details Date Type Department Care Team (Late st Contact Info) Description 11/19/2021 Refill [facility] Medicine [address] [facility] [address] [place] [address] Lisy Olmedo MD [address] [place] [id number] MEDICATION REFILL Social History Tobacco Use Types [...] 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 Answer Date of Assessment Author No 01/30/2018 2:54 PM CDT Ruthann Sorto RN * Is person blind or have serious difficulty seeing? Answer Date of Assessment Author No 01/30/2018 2:54 PM CDT Ruthann Sorto RN * Does person have serious difficulty walking/climbing stairs? Answer Date of Assessment Author Yes 01/30/2018 2:54 PM CDT Ruthann Sorto RN * Does person have difficulty dressing/bathing? Answer Date of Assessment Author Yes 01/30/2018 2:54 PM CDT Ruthann Sorto RN * Does person have difficulty doing errands alone? Answer Date of Assessment Author Yes 01/30/2018 2:54 PM CDT Ruthann Sorto RN documented as of this encounter Mental Status * Does person have difficulty concentrating/remembering/making decisions? Answer Entry Date Author No 01/30/2018 2:54 PM CDT Ruthann Sorto RN documented in this encounter Miscellaneous Notes * Telephone Encounter - Rosalva Johnson - 11/21/2021 10:30 AM CST Requested Prescriptions Pending Prescriptions Disp Refills â€¢ sildenafil (REVATIO) 20 MG tablet 30 tablet Sig: Take 2 (two) tablets to 5 (five) tablets by mouth once daily as needed YULISSA: 02/24/21 NOV Due: 06/27/21 NOV Scheduled: not scheduled LFR: 02/24/21 Qty Disp: 30 # of Refills: 5 Allergies Allergen Reactions â€¢ Lisinopril Angioedema â€¢ Pcn [Penicillins] Swelling eyes swelled shut 50 years ago â€¢ Penicillin V Rash UDING PRESS OPERATOR documented in this encounter Plan of Treatment Upcoming Encounters Date Type Department Care Team (Late st Contact Info) Description 03/11/2025 8:40 AM CDT Office Visit [facility] - Family Medicine [address], [facility] [address] [place] [address] Kiana Cole MD [address] [place] [address] documented as of this encounter Visit Diagnoses Diagnosis Erectile dysfunction, unspecified erectile dysfunction type documented in this encounter Additional Health Concerns Infection Onset Date Last Indicated Resolved Time COVID-19 Under Investigation 07/26/2022 07/26/2022 07/26/2022 5:54 PM CDT COVID-19 Under Investigation 04/10/2024 04/10/2024 04/10/2024 2:48 PM CDT documented as of this encounter Care Teams Pulp Screen Operator Relationship Specialty Start Date End Date Lisy Olmedo MD PCP - General 04/20/09 05/09/22 Sylvain Daniels MD PCP - General Family Medicine 05/10/22 02/14/24 None, Physician [address] [place] [address] PCP - General 02/15/24 05/16/24 Sylvain Daniels MD [address] [place] [address] PCP - Attributed-[employer] Commercial 05/15/22 10/01/22 Sylvain Daniels MD [address] [place] [phone] PCP - Attributed-[employer] Commercial STL 02/12/23 04/01/23 Sylvain Daniels MD [address] [place] [phone] PCP - General Family Medicine 05/17/24 05/19/24 Kiana Cole MD [address] [place] [address] PCP - General Internal Medicine 05/22/24 08/04/24 Sean Kyle MD [address] [place] [address] PCP - General Internal Medicine 08/05/24 09/15/24 Kiana Cole MD [address] [place] [address] PCP - General Internal Medicine 09/16/24 Sylvain Daniels MD Family Medicine 02/15/24 documented as of this encounter
--- OUTSIDE RECORDS SUMMARY | 2025-03-01 19:21 | XMS_ITS | Clinical Summary ---
Author Organization [facility] Address [address] [place] [address] Care Team Providers Care Mechanical Research Engineer Name Role Phone Sean Kyle MD Primary Care Provider [phone] Allergies Active Allergy Reactions Criticality Noted Date [...] Date Confusion 05/25/2024 Near syncope 05/22/2024 Asthma ([facility]) 05/22/2024 Dysphagia following cerebral infarction 03/19/20 24 Cerebrovascular accident ([facility]) 03/12 Staphylococcus aureus infection 02/08/2024 Hyperlipidemia 08/05/2020 [...] LDL-C. Mika EATON et al. RAFFI. 2013;310(19): 1630-1717 (http://education.[employer]faq/BYS681) CHOL/HDLC RATIO <5.0 (calc) 5.3High Non HDL [...] needs weight loss desperately and referred to darkroom technician asked him to stop naproxen Atherosclerosis of coronary artery 01/23/2018 Overview (05/22/2024): Last Assessment & Plan: without angina needs more aggressive RFM continue aspirin Controlled type 2 diabetes francisco carney without complication, without long-term current use of insulin ([facility]) 09/28/2011 Resolved Problems Problem Noted Date Diagnosed [...] History of ETOH use prior to stroke [facility] Utilities Answer Date Recorded In the past 12 months has Why Not Give Back, Guan[employer], oil, or water [employer] threatened to shut off services in your [...] any time in the past 12 m [facility], were you homeless or living in a detention (including now)? Patient unable to answer 05/23/2024 [...] 60-74 years 1-dose series) 2018 Pneumococcal Vaccine: 50+ Years (2 of 2 - PCV) 11/05/2019 11/05/2018, 02/29/2012 Annual Medicare Wellness Visit 2023 COVID-19 Vaccine (2 - season) 2024 09/17/2023 Hemoglobin A1C 11/22/2024 05/22/2024, 04, 09/17/2023, Additional history exists Lipid Panel 01/23/2025 [...] 7.4(H) <5.7 % 05/23/2024 1:29 AM CDT [facility] Comment: ADA GUIDELINES 2010 5.7 TO 6.4% INCREASED RISK OF DIABETES > OR = 6.5% CONSISTENT WITH DIABETES ESTIMATED AVG GLUCOSE 166 mg/dL 05/23/2024 1:29 AM CDT [facility] 05/22/2024 6:25 PM CDT Yaritza Cowart NP LABORATORY Final Result [facility] [address] [place] [address], from Last 3 Months or Most Recently Relevant to Health Maintenance Insurance MEDICARE Advance Directives * Full Code (Latest Code Status on File) Date Activated Date Inactivated Comments 05/22/2024 11:15 PM 05/25/2024 9:20 PM Care Teams Mechanical Research Engineer Relationship Specialty Start Date End Date Sean Kyle MD [address] [address] PCP - General INTERNAL MEDICINE 05/22/24
--- OUTSIDE RECORDS SUMMARY | 2025-03-01 19:21 | XMS_ITS | Data Portability ---
Author Organization [place] [facility] [employer], Main Office Address [address] [place] [address] Assessment Encounter Date Assessment Date Assessment LastModified by Organization Details LastModified Time 08/26/2024 08/26/2024 Removal of PEG tube today in the office. Instructed to remove occlusive dressing in 72 hours, f/u PRN. [email or web address] Not available 08/27/2024 12:12:08 11/06/2024 11/06/2024 This note is dictated and transcribed by [employer]. Chairman And Ceo variances may occur. Despite proofreading, typographical errors may occur. Occasional wrong-word or 'shumz-l-dprc' substitutions may have occurred due to the [...] ole 2 % topical cream 2024 025 [id number], [address] [facility], [place], [place], [id number], 11/06/2024 12:09:37 Patient TargetsNo targets recorded. Patient Instructions Encounter Date Encounter Id Patient Instructions Last Modified By Organization Details Last Modified Time 11/06/2024 [id number] diabetic neuropathy education mayela Not available 11/06/2024 12:09:29 diabetes foot health: care instructions Not available 11/06/2024 12:09:29 Reason for Referral None Reported. Problems Name Problem SNOMED Code Status Onset Date Resolution Date Notes Provider Name and Address Organization Details Recorded Time Difficulty eating 310690472 Active 2023 Isaac varghese MD [address], [address], [place], [address], [email or web address] 4 12:12:51 Diabetic peripheral neuropathy 752348666 Active 2024 Bernabe Rodriguez DPM [address], [address], [place], [address], [email or web address] 5 12:07:37 Onychomycosis of toenails 958627837 Active 2024 Bernabe Rodriguez DPM [address], [address], [place], [address], [email or web address] 5 12:07:41 Diabetes mellitus 05723724 Active 2024 Bernabe Rodriguez DPM [address], [address], [place], [address], [email or web address] 5 12:09:09 Hypertensive disorder 15678058 Active 2024 Bernabe Rodriguez DPM [address], [address], [place], [address], [email or web address] 5 12:39:43 Asthma 384199912 Active 2024 Bernabe Rodriguez DPM [address], [address], [place], [address], [email or web address] 5 12:39:52 Heart disease 72109208 Active 2024 Bernabe Rodriguez DPM [address], [address], [place], [address], [email or web address] 5 12:40:04 Eczema 38744290 Active 2024 Bernabe Rodriguez DPM [address], [address], [place], [address], [email or web address] 5 12:40:13 Cerebrovascula r accident 245699318 Active 2024 Bernabe Rodriguez DPM [address], [place], [address], [email or web address] 12:40:25 Disorder of eye 570619188 Active 2024 Bernabe Rodriguez DPM [address], [place], [address], [email or web address] 12:40:39 Problem Notes None recorded. Procedures Surgical History Date Name Laterality Status Provider Name and Address Organization Details Recorded Time Nail Debridement completed Bernabe Rodriguez DPM [address], [address], [place], [address], [email or web address] 11/06/2024 12:07:26 4 Blank Procedure Note completed Isaac jama MD [address], [address], [place], [address], [employer] 08/26/2024 17:27:52 4 other completed Andreia Dobson MA [place] [facility] 08/26/2024 11:53:51 other completed Andreia Dobson MA [place] [employer] [facility] 08/25/2024 10:57:07 Imaging Results None recorded. Procedure Notes None recorded. Medical Equipment None Reported. Allergies Allergen ID Allergen Name Allergen Category Reaction Reaction Severity Criticality Documentation Date Start Date Code Code System Note Provider Name and Address Organization Details Recorded Time 44397 lisinopri l medicatio n Not available Not available Not available 08/25/2024 55010 RxNorm DEYVI Proctor, [facility] 4 10:57:24 06150 Product containin g penicilli n (product) medicatio n Not available Not available Not available 08/25/2024 09650 8001 SNOMED DEYVI Proctor, [facility] 4 10:57:59 Medications Name Sig Start Date Stop Date Status Note LastModified by Organization Details LastModified Time ollie dotson 8.6-50mg tablets TAKE 2 TABLETS BY MOUTH [...] Updated DateTime 08/26/2024 193.04 cm 32.3 kg/m2 288312.98 g Andreia Dobson MA [employer] 08/26/2024 11:52:41 Date Recorded Body height Body mass index (BMI) Body weight Provider Name and Address Organization Details Last Updated DateTime 11/06/2024 193.04 cm 32.3 kg/m2 430059.98 g Lucita Gotti [employer] [facility] 11/06/2024 11:25:08 Social History Question Answer Notes LastModified by [employer] Details LastModified Time Tobacco Smoking Status Former Smoker Andreia Dobson MA [facility] 08/25/2024 10:55:58 What Is Your Level Of Caffeine Consumption? None Information not available 08/26/2024 What Was The Date Of Your Most Recent Tobacco Screening? 11/06/2024 Information not available 11/06/2024 Has Tobacco Cessation Counseling Been Provided? No Information not available 11/06/2024 Sex: Unknown Functional Status Question Answer Note LastModified by [employer] Details LastModified Time Do you use any illicit or recreational drugs? No Information not available 08/26/2024 Do you or have you ever used any other forms of tobacco or nicotine? No Information not available 11/06/2024 What is your level of alcohol consumption? None Information not available 08/25/2024 Are you currently employed? No Information not available 08/26/2024 Mental Status None recorded. Family History Relationship Description Onset Age of this Age Resolved Age Notes LastModified by Organization Details LastModified Time Father Diabetes mellitus Not available 2023 10:51:31 Father Myocardial infarction Not available 08/25 10:52:10 Father Family history of stroke Not available 2024 12:11:56 Father Arthritis Not available 11/06/2024 12:12:18 Father Heart disease Not available 2024 12:12:36 Mother Hypertensive disorder [email or web address] Not available 2023 10:52:28 Mother Family history of malignant neoplasm of ovary Not available 2023 10:53:11 Mother Arthritis Not available 11/06/2024 12:12:18 Sister Diabetes mellitus victor [email or web address] Not available 2023 10:53:27 Sister Hypertensive disorder Not available 2023 10:53:48 Sister Arthritis Not available 11/06/2024 12:12:18 Medical History Condition Response GERD/NAUSEA Y SLEEP APNEA Y DIABETES, TYPE Y HEART DISEASE/HEART PROBLEMS Y CORONARY ARTERY DISEASE (CAD) Y HYPERTENSION Y STROKE/TIA Y Past Encounters Encounter ID Performer Location Encounter Start Date Encounter Closed Date Diagnosis/Indication Diagnosis SNOMED-CT Code Diagnosis ICD10 Code Diagnosis Note [id number] Isaac cordova MD [facility] General Surgery [address] [facility] [address] [place] [address] 08/26/2024 11:10:15 09/10/2024 11:42:25 Difficulty eating 660225468 R63.30 [id number] Bernabe Rodriguez DPM [facility] Podiatry [place] [address] [facility] [address] [place] [address] 11/06/2024 11:17:27 11/07/2024 13:46:01 Diabetes mellitus 00391495 E11.40 continue diabetic control per PCP recommenda tions Diabetic p eripheral neuropathy 658504657 E11.40 check feet daily for wounds infection present seek medical attention immediatel yFollow-up 3 months for diabetic foot care recommend supportive shoe gear daily Onychomyco sis of toenails 833908501 B35.1 Nails 1 through 10 were debrided [...] Joe Member ID Guarantor Name 08/26/2024 1 [place] Yaya Vazquez Jr [id number] 5 Yaya Vazquez 11/06/2024 1 [place] Yaya Vazquez Jr [id number] 5 Yaya Vazquez Notes Date Note Type [...] flush twice daily. Isaac Ruiz MD [address], [place], [address], [email or web address] 08/27/2024 12:13:21 11/06/2024 text/html . Patient is [...] any other complaints. Bernabe Rodriguez DPM [address], [address], [place], [address], [email or web address] 11/06/2024 12:41:11
--- OUTSIDE RECORDS SUMMARY | 2025-03-01 19:21 | XMS_ITS | Encounter Summary ---
Author Organization [facility] Address [address] [facility] [place] [address] Care Team Providers Care Head Of Sales Name Role Phone Lisy Olmedo MD Primary Care Provide r Sylvain Daniels MD Primary Care Provider + [phone] None, Physician Primary Care Provider Unavailabl e Sylvain Daniels MD Unavailable [phone] Sylvain Daniels MD Unavailable [phone] Sylvain Daniels MD Unavailable [phone] Sylvain Daniels MD Primary Care Provider + [phone] Kiana Cole MD Primary Care Provider Sean Kyle MD Primary Care Provider [phone] Kiana Cole MD Primary Care Provider Reason for Visit * Reason Onset Date Comments MEDICATION REFILL 12/27/2020 Encounter Details Date Type Department Care Team (Late st Contact Info) Description 12/27/2020 Refill [facility] Medicine [address] [facility] [address] [place] [address] Lisy Olmedo MD [address] [place] [address] MEDICATION REFILL Social History Tobacco Use Types [...] 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 Yaya Vazquez YULISSA: 05/17/2020 NOV due: 09/16/2020 NOV scheduled: LRF: 11/17/2019, 11/17/2019, 11/17/2019, 11/17/2019, 11/17/2019 Qty Disp: 30, 30, 30, 1 inhaler, 120 # of refills: 5, 5, 5, 5, 5 Allergies: Allergies Allergen Reactions â€¢ Lisinopril Angioedema â€¢ Pcn [Penicillins] Swelling eyes swelled shut 50 years ago â€¢ Penicillin V Rash Pended Medication Order: Requested Prescriptions Pending Prescriptions Disp Refills â€¢ amLODIPine (NORVASC) 10 MG tablet 30 tablet 5 Sig: Take 1 (one) tablet by mouth at bedtime â€¢ furosemide (LASIX) 40 MG tablet 30 tablet 5 Sig: Take 1 (one) tablet by mouth once daily â€¢ atorvastatin (LIPITOR) 80 MG tablet 30 tablet 5 Sig: Take 1 (one) tablet by mouth at bedtime â€¢ albuterol HFA (PROVENTIL;VENTOLIN;PROAIR) 108 (90 Base) MCG/ACT inhaler 1 Inhaler 5 Sig: Inhale 2 (two) puffs by mouth every 4 hours as needed for Wheezing â€¢ metFORMIN ER 24hr (GLUCOPHAGE XR) 500 MG tablet 120 tablet 5 Sig: Take 4 (four) tablets by mouth daily with dinner documented in this encounter Plan of Treatment Upcoming Encounters Date Type Department Care Team (Late st Contact Info) Description 03/11/2025 8:40 AM CDT Office Visit [facility] Family Medicine [address] [id number] Kiana Cole MD [address] [place] [address] documented as of this encounter Visit Diagnoses Diagnosis Essential hypertension Coronary artery disease involving [place] coronary artery of [place] heart with angina pectoris Type 2 diabetes mellitus with other circulatory [...] documented as of this encounter Care Teams Head Of Sales Relationship Specialty Start Date End Date Lisy Olmedo MD PCP - General 04/20/09 05/09/22 Sylvain Daniels MD PCP - General Family Medicine 05/10/22 02/14/24 None, Physician [address] [place] [address] PCP - General 02/15/24 05/16/24 Sylvain Daniels MD [address] [place] [address] PCP - Attributed-[employer] 05/15/22 10/01/22 Sylvain Daniels MD [address] [place] [address] PCP - Attributed-[employer] STL 02/12/23 04/01/23 Sylvain Daniels MD [address] [place] [address] PCP - General Family Medicine 05/17/24 05/19/24 Kiana Cole MD [address] [place] [address] PCP - General Internal Medicine 05/22/24 08/04/24 Sean Kyle MD [address] [place] [address] PCP - General Internal Medicine 08/05/24 09/15/24 Kiana Cole MD [address] [place] [address] PCP - General Internal Medicine 09/16/24 Sylvain Daniels MD Family Medicine 02/15/24 documented as of this encounter
--- OUTSIDE RECORDS SUMMARY | 2025-03-01 19:21 | XMS_ITS | Encounter Summary ---
Author Organization [facility] Address [address] [facility] [place] [address] Care Team Providers Care Marking Machine Tender Name Role Phone Lisy Olmedo MD Primary Care Provide r Sylvain Daniels MD Primary Care Provider + [phone] None, Physician Primary Care Provider Unavailabl e Sylvain Daniels MD Unavailable [phone] Sylvain Daniels MD Unavailable [phone] Sylvain Daniels MD Unavailable [phone] Sylvain Daniels MD Primary Care Provider + [phone] Kiana Cole MD Primary Care Provider Sean Kyle MD Primary Care Provider [phone] Kiana Cole MD Primary Care Provider Reason for Visit * Reason Onset Date Comments MEDICATION REFILL 05/13/2021 Encounter Details Date Type Department Care Team (Late st Contact Info) Description 05/13/2021 Refill [facility] Medicine [address] [facility] [address] [place] [address] Lisy Olmedo MD [address] [place] [address] MEDICATION REFILL Social History Tobacco Use Types [...] 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 [...] Vazquez Requested Prescriptions Pending Prescriptions Disp Refills â€¢ glipiZIDE CR 24hr (GLIPIZIDE XL) 5 MG tablet 30 tablet 5 Sig: Take 1 (one) tablet by mouth once daily Allergies Allergen Reactions â€¢ Lisinopril Angioedema â€¢ Pcn [Penicillins] Swelling eyes swelled shut 50 years ago â€¢ Penicillin V Rash Last Refill:09/21/2020 Qty Dispense:30 # of Refills:5 Last OV:02/24/2021 Next OV:none documented in this encounter Plan of Treatment Upcoming Encounters Date Type Department Care Team (Late st Contact Info) Description 03/11/2025 8:40 AM CDT Office Visit [facility] - Family Medicine [address], [place] [address] [place] [address] Kiana Cole MD [address] [place] [address] documented as of this encounter Visit Diagnoses Diagnosis Type 2 diabetes mellitus with other circulatory complication, without long-term current use of insulin (HCC) documented in this encounter Additional Health Concerns Infection Onset Date Last Indicated Resolved Time COVID-19 Under Investigation 07/26/2022 07/26/2022 07/26/2022 5:54 PM CDT COVID-19 Under Investigation 04/10/2024 04/10/2024 04/10/2024 2:48 PM CDT documented as of this encounter Care Teams Marking Machine Tender Relationship Specialty Start Date End Date Lisy Olmedo MD PCP - General 04/20/09 05/09/22 Sylvain Daniels MD PCP - General Family Medicine 05/10/22 02/14/24 None, Physician [facility] [place] [address] PCP - General 02/15/24 05/16/24 Sylvain Daniels MD [address] [place] [address] PCP - Attributed-[employer] 05/15/22 10/01/22 Sylvain Daniels MD [address] [place] [address] PCP - Attributed-[employer] STL 02/12/23 04/01/23 Sylvain Daniels MD [address] [place] [address] PCP - General Family Medicine 05/17/24 05/19/24 Kiana Cole MD [address] [place] [address] PCP - General Internal Medicine 05/22/24 08/04/24 Sean Kyle MD [address] [place] [address] PCP - General Internal Medicine 08/05/24 09/15/24 Kiana Cole MD [address] [place] [address] PCP - General Internal Medicine 09/16/24 Sylvain Daniels MD Family Medicine 02/15/24 documented as of this encounter
--- NOTE | 2025-03-01 19:29 | ECG_ITS ---
Test Date: 2025-03-01 22:41:59 Measurements Intervals [place] Rate: 59 P: 76 WI: 170 QRS: 40 QRSD: 86 T: -50 QT: 435 QTc: 434 Interpretive Statements SINUS BRADYCARDIA ST DEVIATION AND MODERATE T-WAVE ABNORMALITY, CONSIDER INFERIOR ISCHEMIA [-0.1+ mV T-WAVE IN II/aVF] Compared to ECG 09/22/2024 22:32:58 no significant changes Electronically Signed On 03-02-2025 10:46:24 CDT by Vernon Wilson M.D.
[2025-03-01 22:15] LABS: Basophils Percent Auto 0.3 % (0.2-1.2); Eosinophils Percent Auto 0.2 % (0-4.4); Hematocrit 41.6 % (42.0-52.0); Hemoglobin 12.9 g/dL (14.0-18.0); Immature Granulocyte Absolute 0.04 K/mm3 (0.00-0.031); Immature Granulocyte Percent A 0.4 % (0-0.5); Lymphocytes Absolute Auto 1.84 K/mm3 (0.9-3.2); Mean Corpuscular Hemoglobin 26.5 pg (26-34); Mean Corpuscular Volume 85.6 fl (80-100); Mean Platelet Volume 9.3 fl (7.4-10.4); Monocytes Absolute Auto 0.4 K/mm3 (0.1-0.6); Monocytes Percent Auto 3.6 % (2.6-8.5); Neutrophils Absolute Auto 7.9 K/mm3 (1.3-6.7); Neutrophils Percent Auto 77.5 % (45.5-73.1); Platelet Count Result 245 k/mm3 (150-375); Red Blood Count 4.86 M/mm3 (4.6-6.20); Red Cell Distribution Width 14.9 % (11.5-14.5); White Blood Count 10.2 K/mm3 (4.5-10.0)
--- OUTSIDE RECORDS SUMMARY | 2025-03-01 22:30 | XMS_ITS | CCD ---
Author Name Saroj DAVIS, Dr Amanda escalona Address [address] [place] [address] [facility] [place] Phone Care Team Providers Care Preschool Special Education Teacher Name Role Phone Unavailable Primary Care Provider Unavailabl e Unavailable Chronic Care Management Unavaila ble Summary Purpose DataExchange Insurance Providers Payer name Policy type / Coverage type Covered green party ID Effective Begin Date Effective End Date [place] [id number] Unknown Family history Sister Diagnosis Age At [...] No Inactive Date Active LISINOPRIL angioedema RxNorm: 37752 05/21/2024 No Inactive D ate Active Penicillin [...] disease ICD-10: I11.9 ICD-9: 402.90 07/24/2024 Active FDC (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 ICD-1 0: Z79.4 [...] (2.5 mg base)/3 mL nebulization soln RxNorm: 4619441 Inhale 3 Milliliter(s) Inhalation every 6 hours as needed for shortness of breath 4 11/19/19 25 Inactive albuterol sulfate HFA 90 mcg/actuation aerosol inhaler RxNorm: 6800442 Administer 2 Puff(s) Inhalation every 4 to 6 hours 4 12/20/19 25 Inactive buspirone 5 mg tablet RxNorm: 238804 Take 1 Tablet(s) Oral three times a day 4 10/26/19 25 Inactive Senna Plus 8.6 mg-50 mg tablet RxNorm: 420024 Take 2 Tablet(s) Oral two times a day as needed for constipation 4 07/28/20 24 Inactive multivitamin tablet RxNorm: Take 1 Tablet(s) Oral every day 4 10/20/19 26 Active buspirone 5 mg tablet RxNorm: 831726 Take 1 Tablet(s) Oral two times a day 4 10/16/19 26 Active polyethylene glycol 3350 17 gram/dose oral powder RxNorm: 931657 Use 1 Unit Dose Oral every day Mix 17g (one capful) with 8oz liquid. Hold for loose stools. 4 08/17/20 25 Active ipratropium 0.5 mg-albuterol 3 mg (2.5 mg base)/3 mL nebulization soln RxNorm: 1300913 Administer 3 Milliliter(s) Inhalation every 6 hours as needed for shortness of breath 4 08/22/20 24 Inactive buspirone 5 mg tablet RxNorm: 011805 Take 1 Tablet(s) Oral three times a day 07/23/20 24 Inactive aspirin 81 mg chewable tablet RxNorm: 105970 Take 1 Tablet(s) Feeding Tube / PEG every day 08/13/20 25 Active atorvastatin 40 mg tablet RxNorm: 989334 Take 1 Tablet(s) Feeding Tube / PEG every night at bedtime 08/13/20 25 Active amlodipine 10 mg tablet RxNorm: 378056 Take 1 Tablet(s) Feeding Tube / PEG once daily 08/13/20 25 Active clopidogrel 75 mg tablet RxNorm: 845291 Take 1 Tablet(s) Feeding Tube / PEG once daily 08/13/20 25 Active Pen Needle 31 gauge x 5/16 RxNorm: Take 1 Pen Needle Subcutaneous three times a day 08/13/20 25 Active famotidine 20 mg tablet RxNorm: 269500 Take 1 Tablet(s) Feeding Tube / PEG two times a day 08/13/20 25 Active thiamine HCl (vitamin B1) 100 mg tablet RxNorm: 447315 Take 1 Tablet(s) Feeding Tube / PEG every day 08/13/20 25 Active folic acid 1 mg tablet RxNorm: 382628 Take 1 Tablet(s) Feeding Tube / PEG every day 08/13/20 25 Active multivit-mineral -folic acid 333 mcg-lutein 3 mg-zeaxant 0.67 mg tablet RxNorm: Take 1 Tablet(s) Oral every day 4 No Stop Date Active Lantus Solostar U-100 Insulin 100 unit/mL (3 mL) subcutaneous pen RxNorm: 370217 Administer 15 Unit(s) Subcutaneous every night at bedtime 08/13/20 25 Active loratadine 10 mg tablet RxNorm: 363650 Take 1 Tablet(s) Feeding Tube / PEG every day 08/13/20 25 Active Senna Plus 8.6 mg-50 mg tablet RxNorm: 908649 Take 2 Tablet(s) Feeding Tube / PEG two times a day as needed for constipation 07/29/20 24 Inactive albuterol sulfate HFA 90 mcg/actuation aerosol inhaler RxNorm: 4007350 Administer 2 Puff(s) Inhalation every 4 to 6 hours 4 05/21/20 24 Inactive Medication Administered No Medication Administered data Results Observation Observation Code Item Item Code Result Date Service Location COMPLETE CBC W/ DIFF WBC 53091 WBC 6690-2 6.8 K/ul [facility] [address] [place] [address] 64707 COMPLETE CBC W/ DIFF WBC 33733 RBC 789-8 3.89 M/uL [facility] [address] [place] [address] 46458 COMPLETE CBC W/ DIFF WBC 03514 Hemoglobin 718-7 10.6 g/dL [facility] [address] [place] [address] 79941 COMPLETE CBC W/ DIFF WBC 92290 Hematocrit 4544-3 32.2 % [facility] [address] [place] [address] 45338 COMPLETE CBC W/ DIFF WBC 37698 MCV 787-2 82.9 fL [facility] [address] [place] [address] 05604 COMPLETE CBC W/ DIFF WBC 53101 MCH 785-6 27.3 pg 024 [facility] [address] [place] [address] 87275 COMPLETE CBC W/ DIFF WBC 23114 MCHC 786-4 32.9 g/dL 024 [facility] [address] [place] [address] 68207 COMPLETE CBC W/ DIFF WBC 63586 RDW 788-0 15.5 % 024 [facility] [address] [place] [address] 94748 COMPLETE CBC W/ DIFF WBC 89775 Platelet Count 777-3 303 K/uL 024 [facility] [address] [place] [address] 47793 COMPLETE CBC W/ DIFF WBC 65286 MPV 05939-5 8.0 fL [facility] [address] [place] [address] 57664 COMPLETE CBC W/ DIFF WBC 01600 Neutrophils % 770-8 51.2 % [facility] [address] [place] [address] 90469 COMPLETE CBC W/ DIFF WBC 02457 Lymphocytes % 736-9 39.8 % 08/08/2 024 [facility] [address] [place] [address] COMPLETE CBC W/ DIFF WBC 97218 Monocytes % 5905-5 6.7 % 024 [facility] [address] [place] [address] COMPLETE CBC W/ DIFF WBC 30691 Eosinophils % 713-8 2.1 % 024 [facility] [address] [place] [address] COMPLETE CBC W/ DIFF WBC 97558 Basophils% 706-2 0.2 % 024 [facility] [address] [place] [address] COMPLETE CBC W/ DIFF WBC 79050 Absolute Neutrophil 751-8 3482 /ul 024 [facility] [address] [place] [address] 06884 COMPLETE CBC W/ DIFF WBC 33417 Absolute Lymphocyte 23766-4 2706 /ul 024 [facility] [address] [place] [address] 60880 COMPLETE CBC W/ DIFF WBC 08721 Absolute Monocyte 742-7 456 /ul 024 [facility] [address] [place] [address] 37677 COMPLETE CBC W/ DIFF WBC 71524 Absolute Eosinophil 711-2 143 /ul 024 [facility] [address] [place] [address] 03541 COMPLETE CBC W/ DIFF WBC 07293 Absolute Basophil 704-7 14 /ul 024 [facility] [address] [place] [address] 92063 Direct LDL 88814 LDL-Direct 27038-0 117 mg/dL 024 [facility] [address] [place] [address] 92511 TRIGLYCERIDES 98780 Triglycerides 2571-8 173 mg/dL 024 [facility] [address] [place] [address] 05407 TRIGLYCERIDES 99407 VLDL 29586-3 35 mg/dL 024 [facility] [address] [place] [address] 59867 CHOLESTEROL 51935 Cholesterol 2093-3 177 mg/dL 024 [facility] [address] [place] [address] 53209 CHEM 14 (METABOLIC PANEL) 74594 Glucose 2345-7 138 mg/dL 024 [facility] [address] [place] [address] 56126 CHEM 14 (METABOLIC PANEL) 84721 BUN 3094-0 21 mg/dL 024 [facility] [address] [place] [address] 23963 CHEM 14 (METABOLIC PANEL) 28482 Creatinine 2160-0 0.8 mg/dL 024 [facility] [address] [place] [address] 42623 CHEM 14 (METABOLIC PANEL) 15446 BUN/Creat Ratio 3097-3 25.7 024 [facility] [address] [place] [address] 05418 CHEM 14 (METABOLIC PANEL) 66184 GFR Estimated 85261-2 97 mL/min/1. 73m2 024 [facility] [address] [place] [address] CHEM 14 (METABOLIC PANEL) 97582 Sodium 2951-2 139 mmol/L 024 [facility] [address] [place] [address] 78409 CHEM 14 (METABOLIC PANEL) 99409 Potassium 2823-3 4.0 mmol/L 024 [facility] [address] [place] [address] 59068 CHEM 14 (METABOLIC PANEL) 66684 Chloride 2075-0 98 mmol/L 024 [facility] [address] [place] [address] 02961 CHEM 14 (METABOLIC PANEL) 75300 Total CO2 2028-9 30 mmol/L 024 [facility] [address] [place] [address] 16145 CHEM 14 (METABOLIC PANEL) 41254 Calculated Serum Osmolality 87110-4 293 mOsm/kg 024 [facility] [address] [place] [address] 49392 CHEM 14 (METABOLIC PANEL) 48331 Anion Gap 1863-0 15.0 mEq/L 024 [facility] [address] [place] [address] 53111 CHEM 14 (METABOLIC PANEL) 03407 Albumin 25529-3 3.1 g/dL 024 [facility] [address] [place] [address] 06382 CHEM 14 (METABOLIC PANEL) 12847 Total Protein 2885-2 7.5 g/dL 024 [facility] [address] [place] [address] 36933 CHEM 14 (METABOLIC PANEL) 32323 Globulin 2336-6 4.4 g/dL 024 [facility] [address] [place] [address] 72273 CHEM 14 (METABOLIC PANEL) 53801 Albumin/Globulin Ratio 1759-0 0.7 024 [facility] [address] [place] [address] 78137 CHEM 14 (METABOLIC PANEL) 93235 ALK PHOS 6768-6 66.00 U/L 024 [facility] [address] [place] [address] CHEM 14 (METABOLIC PANEL) 79139 SGOT/AST 1920-8 13 U/L 024 [facility] [address] [place] [address] CHEM 14 (METABOLIC PANEL) 81963 SGPT/ALT 1743-4 19 U/L 024 [facility] [address] [place] [address] CHEM 14 (METABOLIC PANEL) 49474 Total Bilirubin 1975-2 0.3 mg/dL 024 [facility] [address] [place] [address] CHEM 14 (METABOLIC PANEL) 91279 Calcium 25523-1 9.4 mg/dL 024 [facility] [address] [place] [address] CHEM 14 (METABOLIC PANEL) 43072 Corrected Calcium 13857-7 10.3 mg/dL 024 [facility] [address] [place] [address] PTH 06168 PTH 2731-8 21.7 pg/mL 024 [facility] [address] [place] [address] VITAMIN B-12 57167 Vitamin B12 2132-9 609 pg/mL 05/22 024 [facility] [address] [place] [address] 54061 S6X-UFHGTPTYLOBGN IN 4548-4 Glyco HGB A1C 99381-7 7.0 % 024 [facility] [address] [place] [address] 25452 U5I-ISUDUAJJAEOQF IN [facility]8-4 eAG 36059-3 154 mg/dL 024 [facility] [address] [place] [address] HDL - CHOL 24959 HDL 2085-9 30 mg/dL 024 [facility] [address] [place] [address] HDL - CHOL 97828 CHD 39133-1 17 % 024 [facility] [address] [place] [address] TSH 05743 TSH 46460-9 2.540 uIU/mL 024 [facility] [address] [place] [address] Procedures Procedure Codes Date Annual Wellness Visit (Initial Visit) CPT-4: G04 38 07/24/2024 FLU VACC CELL CULT PRSV FREE CPT-4: 07745 07/2024 Most recent A1c = 7.0% and < 8.0% CPT-4: 3051F 07/24/2024 FLUCEL VAX PFS VAC NO PRSV 0.5ML IM CPT-4: 47567 07/24/2024 Admin flu virus vaccine CPT-4: G0008 07/24/20 24 LEVEL OF ACTIVITY ASSESS CPT-4: 1003F 024 PT SCRN TBCO ID NON USER CPT-4: G9903 07/15 Current tobacco non-user CPT-4: 1036F 024 Amnt pain noted; none prsnt CPT-4: 1126F 07/15 MED LIST DOCD IN [facility] CPT-4: 1159F 07/24/2024 RVW MEDS BY RX/DR IN [facility] CPT-4: 116F 2023 Patient Screened for Future Fall Risk CPT-4: 110 0F 07/24/2024 Fall plan of care doc'd CPT-4: 0518F 07/24/20 24 Most recent A1c = 7.0% and < 8.0% CPT-4: 305F 06/24/2024 MED LIST DOCD IN [facility] CPT-4: 1159F 06/24/2024 RVW MEDS BY RX/DR IN [facility] CPT-4: 1160F 2023 Discharge Meds Reconciled w/ Current Med list CP T-4: 1111F 06/24/2024 Amnt pain noted; none prsnt CPT-4: 1126F 06/[address] CPT-4: 1159F 05/21/2024 RVW MEDS BY RX/DR IN [facility] CPT-4: 1160F 2023 Discharge Meds Reconciled w/ Current Med list CP T-4: 1111F 05/21/2024 Amnt pain noted; none prsnt CPT-4: 1126F 04/2024 Screening for clinical depre ssion is negative, follow-up plan not required CPT-4: G8510 05/21/2024 Patient Screened for Future Fall Risk CPT-4: 110 0F 05/21/2024 Fall plan of care doc'd CPT-4: 0518F 05/21/20 24 Cologuard CPT-4: 03894 Unknown D5A-Oqhbugivuiowbkx CPT-4: 45293 Unknown Gastroenterology Referral SNOMED CT: 306 080584 CPT-4: R12 Unknown Vital Signs Date Vital 07/24/2024 Blood Pressure 1: 120/82 Code: 8480-6 BMI: 32.3 Code: 62431-2 Heart Rate 1: 81 bpm Height: 6'4 Code: 8302-2 Respiratory Rate: 16 bpm SpO2: 97% Temperature: 36.1 (C) / 97.0 (F) Weight: 265 lbs Code: 42412-4 06/24/2024 Blood Pressure 1: 134/76 Code: 8480-6 BMI: 34.6 Code: 65618-5 Heart Rate 1: 86 bpm Height: 6'4 Code: 8302-2 Respiratory Rate: 17 bpm SpO2: 94% Temperature: 36.4 (C) / 97.6 (F) Weight: 284 lbs Code: 12197-6 05/21/2024 Blood Pressure 1: 135/82 Code: 8480-6 BMI: 32.3 Code: 84072-8 Heart Rate 1: 84 bpm Height: 6'4 Code: 8302-2 Respiratory Rate: 17 bpm SpO2: 93% Temperature: 35.6 (C) / 96.0 (F) Weight: 265 lbs Code: 83414-3 Reason For Visit Reason For Visit Effective [...] disease)[ICD10: K21.9] Diagnosis: Gastrostomy present[ICD10: Z93.1] Diagnosis: FDC (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[ICD10: Z79.4] Diagnosis: At high risk for falls[ICD10: Z91.81] [facility] Office [address] [place] [address] CPT-4: G0438 4 (70896) Home or Residence Visit Est Pt - Low Level, 30 mins Diagnosis: Hemiparesis due to recent cerebrovascular accident (CVA)[ICD10: I69.359] Diagnosis: Diabetes mellitus due to underlying condition with diabetic neuropathy, with long-term current use of insulin[ICD10: E08.40] Diagnosis: salvage determiner (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[ICD10: Z79.4] Diagnosis: Diplopia[ICD10: H53.2] Diagnosis: Hypertension with heart disease[ICD10: I11.9] Diagnosis: 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] Diagnosis: Encounter for general adult medical examination with abnormal findings[ICD10: Z00.01] Diagnosis: Haemophilus influenza type B vaccination administered[ICD10: Z23] Diagnosis: Coronary artery disease[ICD10: I25.10] Diagnosis: Dyslipidemia[ICD10: E78.5] Diagnosis: Obesity (BMI 30.0-34.9)[ICD10: E66.9] Diagnosis: MONTY (obstructive sleep apnea)[ICD10: G47.33] Diagnosis: Gastrostomy present[ICD10: Z93.1] Diagnosis: Paroxysmal cough[ICD10: R05.8] Diagnosis: Gait abnormality[ICD10: R26.9] Diagnosis: Asthma[ICD10: J45.909] Diagnosis: GERD (gastroesophageal reflux disease)[ICD10: K21.9] Diagnosis: At high risk for falls[ICD10: Z91.81] [facility] [address] [place] [address] CPT-4: 18621 4 (99058) Home or Residence Visit Est Pt - Moderate Level, 40 mins Diagnosis: Syncope[ICD10: R55] Diagnosis: Hemiparesis due to recent cerebrovascular accident (CVA)[ICD10: I69.359] Diagnosis: Diabetes mellitus due to underlying condition with diabetic neuropathy, with long-term current use of insulin[ICD10: E08.40] Diagnosis: FDC (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[ICD10: Z79.4] Diagnosis: Hypertension [...] cancer screening[ICD10: Z12.11] Diagnosis: Paroxysmal cough[ICD10: R05.8] [facility] [address] [place] [address] CPT-4: 74050 4 (41191) Home or Residence Visit CCTV TECHNICIAN - Moderate Level, 60 mins Diagnosis: Hemiparesis due to recent cerebrovascular accident (CVA)[ICD10: I69.359] Diagnosis: Gastrostomy present[ICD10: Z93.1] Diagnosis: Diabetes mellitus due to underlying condition with diabetic neuropathy, with long-term current use of insulin[ICD10: E08.40] Diagnosis: Hypertension with heart disease[ICD10: I11.9] Diagnosis: Dysphagia as late effect of cerebrovascular accident (CVA)[ICD10: I69.391] Diagnosis: salvage determiner (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[ICD10: Z79.4] Diagnosis: Dysarthria [...] examination with abnormal findings[ICD10: Z00.01] Sean Kyle [place] [facility] [address] [place] [address] CPT-4: 85632 4 Plan of Care Planned Activity Notes [...] insulin: Stable Hba1c 7.0. On Lantus Z79.4-V58.67 FDC (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: On Lantus 15 [...] placed R05.8-786.2 Paroxysmal cough R26.9-781.2 Gait abnormality: [facility] . On PT progressing J45.909-493.90 Asthma [...] insulin: Stable. Hba1c 7.0. On Lantus Z79.4-V58.67 salvage determiner (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 On Lantus 15 [...] At high risk for falls: at present [facility] bound. On PT/OT for strengthening, balance, coordination Z12.11-V76.51 Colon cancer screening: Fuentes R05.8-786.2 Paroxysmal cough: poss due to poor pharyngeal reflex, GERD . Try Protonix. Oropharyngeal suctioning. Order Suction Aspirator 06/24/2024 Appointment: Sean Kyle WPtel: [address] [place], [place] [address] E034 06/24/2024 Patient Education: Obesity Completed 06/24/2024 Patient Education: Patient Medication Summary Completed 06/24/2024 Care Plan: Cologuard Ordered 06/15 Appointment: Oscar Hoyt WPtel: [address] [facility] [address] [id number] [place] Phone Call 06/20/2024 Appointment: Mony Moseley WPtel: [address] [id number] [place] Phone Call 06/06/2024 [facility]ment[facility] [address] [facility] [facility] 05/26/2024 Visit Plan: I69.359-438.20 Hemiparesis [...] late effect of cerebrovascular accident (CVA) Z79.4- salvage determiner (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 I69.322-438.13 Dysarthria as [...] findings 05/21/2024 Appointment: Sean [facility] [address] [facility] 05/21/2024 Patient Education: Patient Medication Summary Completed 05/21/2024 Patient Education: Obesity Completed 05/21/2024 Referral: [facility] WPtel: [address] [place], [place] [address] Referral faxed to: Agency Name: [facility] Agency Address: [address] [address] Agency Phone #: [phone] Agency Agency will contact the patient to schedule Order Faxed Referral: Pending Medical Records Information [facility] requires Consent when requesting records, there i currently no consent on file for the patient can we get consent uploaded to [facility] so we can finish the request. thank you On Hold Awaiting Documentation Referral: [facility] WPtel: [phone] [facility] [address] [facility], [place] [address] Reprocess Referral: Provider Gahda Hurtado WPtel: [address] [place] [address] 05/22/2024 order faxed to agency. Not Taken Up Referral: Residential home health WPtel: [facility] [facility] [place] Referral [facility] Referral: Pending Primary Special Educator Referral Information lvm , provided the above agency information. Instructed to call O&R department if they do not hear back from agency withing 7-10 days.05/22/24 no answer, lvm to cb Spoke with office HVS Referral faxed to:[facility] Agency Name: _[facility] Agency Address:_ [address], [place] [address] Agency Phone #:_ Agency _ Agency will contact the patient to schedule appointment. Order Faxed Referral: Sean Kyle WPtel: [address] [facility] [place] Agency contacted, confirmed they're accepting new patients. They will run insurance once order is received Referral faxed to: Agency Name: [facility] [employer] Agency Address: [address] , [address], [place] [address] Agency Phone #:[phone] Agency Agency will ship to patient. pt has referral info Order Faxed Referral: Residential home health WPtel: [address] [id number] [place] Referral ACT - HH Cert Referral: Madiha Hurtado WPtel: [address] [facility] Notes & referral faxed to [facility] [phone] Order Faxed Referral: Pending Incontinence Supplies Order [...] Information called and spoke to patient JUDY Narayananevita woods advised Not Taken Up - Patient Insurance Instructions Comment Date Fall precaution Postural change. I attest that I have made every attempt to complete all the required assessments including but not limited to interviewing additional independent historians, formal chart review of past notes and all available medical records at my disposal. I69.987-438.20 Hemiparesis due to recent cerebrovascular accident (CVA): Has Rt sided weakness. On PT E08.40-249.60 Diabetes mellitus due to underlying condition with diabetic neuropathy, with long-term current use of insulin: Stable Hba1c 7.0. On Lantus Z79.4-V58.67 salvage determiner (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: On Lantus 15 [...] placed R05.8-786.2 Paroxysmal cough R26.9-781.2 Gait abnormality: [facility] . On PT progressing J45.909-493.90 Asthma [...] insulin: Stable. Hba1c 7.0. On Lantus Z79.4-V58.67 salvage determiner (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; On Lantus 15 [...] At high risk for falls: at present [facility] bound. On PT/OT for strengthening, balance, coordination Z12.11-V76.51 Colon cancer screening: [facility] R05.8-786.2 Paroxysmal cough: poss due to poor [...] late effect of cerebrovascular accident (CVA) Z79.4- salvage determiner (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 I69.322-438.13 Dysarthria as [...]
--- OUTSIDE RECORDS SUMMARY | 2025-03-01 22:30 | XMS_ITS | Encounter Summary ---
Author Organization [facility] Address [address] [facility] [place] [address] Care Team Providers Care Actuarial Science Teacher Name Role Phone Lisy Olmedo MD Primary Care Provide r Sylvain Daniels MD Primary Care Provider + [phone] None, Physician Primary Care Provider Unavailabl e Sylvain Daniels MD Unavailable [phone] Sylvain Daniels MD Unavailable [phone] Sylvain Daniels MD Unavailable [phone] Sylvain Daniels MD Primary Care Provider + [phone] Kiana Cole MD Primary Care Provider Sean Kyle MD Primary Care Provider [phone] Kiana Cole MD Primary Care Provider Reason for Visit * Reason Onset Date Comments MEDICATION REFILL 05/13/2021 Encounter Details Date Type Department Care Team (Late st Contact Info) Description 05/13/2021 Refill [facility] Medicine [address] [facility] [address] [place] [address] Lisy Olmedo MD [address] [place] [address] MEDICATION REFILL Social History Tobacco Use Types [...] 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 [...] Description 03/11/2025 8:40 AM CDT Office Visit [facility] - Family Medicine [address], [place] [address] [place] [address] Kiana Cole MD [address] [place] [address] documented as of this encounter Visit Diagnoses Diagnosis Type 2 diabetes mellitus with other circulatory complication, without long-term current use of insulin (HCC) documented in this encounter Additional Health Concerns Infection Onset Date Last Indicated Resolved Time COVID-19 Under Investigation 07/26/2022 07/26/2022 07/26/2022 5:54 PM CDT COVID-19 Under Investigation 04/10/2024 04/10/2024 04/10/2024 2:48 PM CDT documented as of this encounter Care Teams Actuarial Science Teacher Relationship Specialty Start Date End Date Lisy Olmedo MD PCP - General 04/20/09 05/09/22 Sylvain Daniels MD PCP - General Family Medicine 05/10/22 02/14/24 None, Physician [facility] [place] [address] PCP - General 02/15/24 05/16/24 Sylvain Daniels MD [address] [place] [address] PCP - Attributed-[employer] 05/15/22 10/01/22 Sylvain Daniels MD [address] [place] [address] PCP - Attributed-[employer] 02/12/23 04/01/23 Sylvain Daniels MD [address] [place] [address] PCP - General Family Medicine 05/17/24 05/19/24 Kiana Cole MD [address] [place] [address] PCP - General Internal Medicine 05/22/24 08/04/24 Sean Kyle MD [address] [place] [address] PCP - General Internal Medicine 08/05/24 09/15/24 Kiana Cole MD [address] [place] [address] PCP - General Internal Medicine 09/16/24 Sylvain Daniels MD Family Medicine 02/15/24 documented as of this encounter
--- OUTSIDE RECORDS SUMMARY | 2025-03-01 22:30 | XMS_ITS | Encounter Summary ---
Author Organization [facility] Address [address] [facility] [place] [address] Care Team Providers Care Small Brake Form Operator Name Role Phone Lisy Olmedo MD Primary Care Provide r Sylvain Daniels MD Primary Care Provider + [phone] None, Physician Primary Care Provider Unavailabl e Sylvain Daniels MD Unavailable +[phone] Sylvain Daniels MD Unavailable [phone] Sylvain Daniels MD Unavailable [phone] Sylvain Daniels MD Primary Care Provider + [phone] Kiana Cole MD Primary Care Provider Sean Kyle MD Primary Care Provider [phone] Kiana Cole MD Primary Care Provider Reason for Visit * Reason Onset Date Comments MEDICATION REFILL 12/27/2020 Encounter Details Date Type Department Care Team (Late st Contact Info) Description 12/27/2020 Refill [facility] Medicine [address] [facility] [address] [place] [address] Lisy Olmedo MD [address] [place] [id number] MEDICATION REFILL Social History Tobacco Use Types [...] 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 [...] Description 03/11/2025 8:40 AM CDT Office Visit [facility] Family Medicine [address] [phone] Kiana Cole MD [address] [place] [address] documented as of this encounter Visit Diagnoses Diagnosis Essential hypertension Coronary artery disease involving [place] coronary artery of [place] heart with angina pectoris Type 2 diabetes [...] documented as of this encounter Care Teams Small Brake Form Operator Relationship Specialty Start Date End Date Lisy Olmedo MD PCP - General 04/20/09 05/09/22 Sylvain Daniels MD PCP - General Family Medicine 05/10/22 02/14/24 None, Physician [address] [place] [address] PCP - General 02/15/24 05/16/24 Sylvain Daniels MD [address] [place] [address] PCP - Attributed-[employer] 05/15/22 10/01/22 Sylvain Daniels MD [address] [place] [address] PCP - Attributed-[employer] STL 02/12/23 04/01/23 Sylvain Daniels MD [address] [place] [address] PCP - General Family Medicine 05/17/24 05/19/24 Kiana Cole MD [address] [place] [address] PCP - General Internal Medicine 05/22/24 08/04/24 Sean Kyel MD [address] [place] [phone] PCP - General Internal Medicine 08/05/24 09/15/24 Kiana Cole MD [address] [place] [address] PCP - General Internal Medicine 09/16/24 Sylvain Daniels MD Family Medicine 02/15/24 documented as of this encounter
--- OUTSIDE RECORDS SUMMARY | 2025-03-01 22:30 | XMS_ITS | Encounter Summary ---
Author Organization [facility] Address [address] [facility] [place] [address] Care Team Providers Care Document Control Manager Name Role Phone Lisy Olmedo MD Primary Care Provide r Sylvain Daniels MD Primary Care Provider + [phone] None, Physician Primary Care Provider Unavailabl e Sylvain Daniels MD Unavailable +[phone] Sylvain Daniels MD Unavailable [phone] Sylvain Daniels MD Unavailable [phone] Sylvain Daniels MD Primary Care Provider + [phone] Kiana Cole MD Primary Care Provider Sean Kyle MD Primary Care Provider [phone] Kiana Cole MD Primary Care Provider Reason for Visit * Reason Onset Date Comments MEDICATION REFILL 11/19/2021 Encounter Details Date Type Department Care Team (Late st Contact Info) Description 11/19/2021 Refill [facility] Medicine [address] [facility] [address] [place] [address] Lisy Olmedo MD [address] [place] [phone] MEDICATION REFILL Social History Tobacco Use Types [...] 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 Not on file Not on file 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 [employer] Not on [...] 50 years ago â€¢ 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 documented in this encounter Plan of Treatment Upcoming Encounters Date Type Department Care Team (Late st Contact Info) Description 03/11/2025 8:40 AM CDT Office Visit [facility] - Family Medicine [address], [facility] [address] [place] [address] Kiana Cole MD [address] [place] [address] documented as of this encounter Visit Diagnoses Diagnosis Erectile dysfunction, unspecified erectile dysfunction type documented in this encounter Additional Health Concerns Infection Onset Date Last Indicated Resolved Time COVID-19 Under Investigation 07/26/2022 07/26/2022 07/26/2022 5:54 PM CDT COVID-19 Under Investigation 04/10/2024 04/10/2024 04/10/2024 2:48 PM CDT documented as of this encounter Care Teams Document Control Manager Relationship Specialty Start Date End Date Lisy Olmedo MD PCP - General 04/20/09 05/09/22 Sylvain Daniels MD PCP - General Family Medicine 05/10/22 02/14/24 None, Physician [address] [place] [address] PCP - General 02/15/24 05/16/24 Sylvain Daniels MD [address] [place] [address] PCP - Attributed-[employer] 05/15/22 10/01/22 Sylvain Daniels MD [address] [place] [phone] PCP - Attributed-[employer] STL 02/12/23 04/01/23 Sylvain Daniels MD [address] [place] [phone] PCP - General Family Medicine 05/17/24 05/19/24 Kiana Cole MD [address] [place] [address] PCP - General Internal Medicine 05/22/24 08/04/24 Sean Kyle MD [address] [place] [address] PCP - General Internal Medicine 08/05/24 09/15/24 Kiana Cole MD [address] [place] [address] PCP - General Internal Medicine 09/16/24 Sylvain Daniels MD Family Medicine 02/15/24 documented as of this encounter
--- OUTSIDE RECORDS SUMMARY | 2025-03-01 22:30 | XMS_ITS | CCD ---
Author Name Saroj DAVIS, Dr Amanda escalona Address [address] [facility] [address] [place] [address] [facility] Phone Care Team Providers Care Timber Framer Helper Name Role Phone Unavailable Primary Care Provider Unavailabl e Unavailable Chronic Care Management Unavaila ble Summary Purpose DataExchange Insurance Providers Payer name Policy type / Coverage type Covered green party ID Effective Begin Date Effective End Date [place] [id number] Unknown Family history Sister Diagnosis Age At [...] No Inactive Date Active LISINOPRIL angioedema RxNorm: 89376 05/21/2024 No Inactive D ate Active Penicillin [...] disease ICD-10: I11.9 ICD-9: 402.90 07/24/2024 Active [facility] (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 ICD-1 0: Z79.4 [...] (2.5 mg base)/3 mL nebulization soln RxNorm: 8406723 Inhale 3 Milliliter(s) Inhalation every 6 hours as needed for shortness of breath 4 11/19/19 25 Inactive albuterol sulfate HFA 90 mcg/actuation aerosol inhaler RxNorm: 1471547 Administer 2 Puff(s) Inhalation every 4 to 6 hours 4 12/20/19 25 Inactive buspirone 5 mg tablet RxNorm: 206546 Take 1 Tablet(s) Oral three times a day 4 10/26/19 25 Inactive Senna Plus 8.6 mg-50 mg tablet RxNorm: 190409 Take 2 Tablet(s) Oral two times a day as needed for constipation 4 07/28/20 24 Inactive multivitamin tablet RxNorm: Take 1 Tablet(s) Oral every day 4 10/20/19 26 Active buspirone 5 mg tablet RxNorm: 336023 Take 1 Tablet(s) Oral two times a day 4 10/16/19 26 Active polyethylene glycol 3350 17 gram/dose oral powder RxNorm: 289211 Use 1 Unit Dose Oral every day Mix 17g (one capful) with 8oz liquid. Hold for loose stools. 4 08/17/20 25 Active ipratropium 0.5 mg-albuterol 3 mg (2.5 mg base)/3 mL nebulization soln RxNorm: 7127193 Administer 3 Milliliter(s) Inhalation every 6 hours as needed for shortness of breath 4 08/22/20 24 Inactive buspirone 5 mg tablet RxNorm: 753018 Take 1 Tablet(s) Oral three times a day 07/23/20 24 Inactive aspirin 81 mg chewable tablet RxNorm: 815633 Take 1 Tablet(s) Feeding Tube / PEG every day 08/13/20 25 Active atorvastatin 40 mg tablet RxNorm: 391951 Take 1 Tablet(s) Feeding Tube / PEG every night at bedtime 08/13/20 25 Active amlodipine 10 mg tablet RxNorm: 529567 Take 1 Tablet(s) Feeding Tube / PEG once daily 08/13/20 25 Active clopidogrel 75 mg tablet RxNorm: 443282 Take 1 Tablet(s) Feeding Tube / PEG once daily 08/13/20 25 Active Pen Needle 31 gauge x 5/16 RxNorm: Take 1 Pen Needle Subcutaneous three times a day 08/13/20 25 Active famotidine 20 mg tablet RxNorm: 098372 Take 1 Tablet(s) Feeding Tube / PEG two times a day 08/13/20 25 Active thiamine HCl (vitamin B1) 100 mg tablet RxNorm: 854467 Take 1 Tablet(s) Feeding Tube / PEG every day 08/13/20 25 Active folic acid 1 mg tablet RxNorm: 672670 Take 1 Tablet(s) Feeding Tube / PEG every day 08/13/20 25 Active multivit-mineral -folic acid 333 mcg-lutein 3 mg-zeaxant 0.67 mg tablet RxNorm: Take 1 Tablet(s) Oral every day 4 No Stop Date Active Lantus Solostar U-100 Insulin 100 unit/mL (3 mL) subcutaneous pen RxNorm: 329342 Administer 15 Unit(s) Subcutaneous every night at bedtime 08/13/20 25 Active loratadine 10 mg tablet RxNorm: 692249 Take 1 Tablet(s) Feeding Tube / PEG every day 08/13/20 25 Active Senna Plus 8.6 mg-50 mg tablet RxNorm: 026753 Take 2 Tablet(s) Feeding Tube / PEG two times a day as needed for constipation 07/29/20 24 Inactive albuterol sulfate HFA 90 mcg/actuation aerosol inhaler RxNorm: 8417304 Administer 2 Puff(s) Inhalation every 4 to 6 hours 4 05/21/20 24 Inactive Medication Administered No Medication Administered data Results Observation Observation Code Item Item Code Result Date Service Location Direct LDL 25635 LDL-Direct 77283-8 117 mg/dL 024 [facility] [address] [place] [address] TRIGLYCERIDES 64985 Triglycerides 2571-8 173 mg/dL 024 [facility] [address] [place] [address] TRIGLYCERIDES 93160 VLDL 49276-6 35 mg/dL [address] [facility] [address] [place] [address] 44726 PTH 06768 PTH 2731-8 21.7 pg/mL 0[address] [facility] [address] [place] [address] 78687 VITAMIN B-12 53720 Vitamin B12 2132-9 609 pg/mL 05/22 0[address] [facility] [address] [place] [address] 93007 TSH 62942 TSH 76400-6 2.540 uIU/mL 024 [facility] [address] [place] [address] HDL - CHOL 57160 HDL 2085-9 30 mg/dL 0[address] [facility] [address] [place] [address] 74647 HDL - CHOL 22248 CHD 78475-0 17 % [address] [facility] [address] [place] [address] 62702 CHEM 14 (METABOLIC PANEL) 22200 Glucose 2345-7 138 mg/dL 024 [facility] [address] [place] [address] 16589 CHEM 14 (METABOLIC PANEL) 87822 BUN 3094-0 21 mg/dL 0[address] [facility] [address] [place] [address] 38958 CHEM 14 (METABOLIC PANEL) 34949 Creatinine 2160-0 0.8 mg/dL 0[address] [facility] [address] [place] [address] 30481 CHEM 14 (METABOLIC PANEL) 80062 BUN/Creat Ratio 3097-3 25.7 024 [facility] [address] [place] [address] 61404 CHEM 14 (METABOLIC PANEL) 70146 GFR Estimated 50235-8 97 mL/min/1. 73m2 024 [facility] [address] [place] [address] 47049 CHEM 14 (METABOLIC PANEL) 06830 Sodium 2951-2 139 mmol/L 024 [facility] [address] [place] [address] 10993 CHEM 14 (METABOLIC PANEL) 10379 Potassium 2823-3 4.0 mmol/L 0[address] [facility] [address] [place] [address] 76249 CHEM 14 (METABOLIC PANEL) 50713 Chloride 2075-0 98 mmol/L 0[address] [facility] [address] [place] [address] 01413 CHEM 14 (METABOLIC PANEL) 99071 Total CO2 2028-9 30 mmol/L 0[address] [facility] [address] [place] [address] 97530 CHEM 14 (METABOLIC PANEL) 77625 Calculated Serum Osmolality 14863-8 293 mOsm/kg 024 [facility] [address] [place] [address] 45097 CHEM 14 (METABOLIC PANEL) 45693 Anion Gap 1863-0 15.0 mEq/L 024 [facility] [address] [place] [address] 80407 CHEM 14 (METABOLIC PANEL) 97717 Albumin 27876-0 3.1 g/dL 024 [facility] [address] [place] [address] 05364 CHEM 14 (METABOLIC PANEL) 90642 Total Protein 2885-2 7.5 g/dL 024 [facility] [address] [place] [address] 81300 CHEM 14 (METABOLIC PANEL) 96139 Globulin 2336-6 4.4 g/dL 024 [facility] [address] [place] [address] 10909 CHEM 14 (METABOLIC PANEL) 18317 Albumin/Globulin Ratio 1759-0 0.7 024 [facility] [address] [place] [address] 07408 CHEM 14 (METABOLIC PANEL) 39057 ALK PHOS 6768-6 66.00 U/L 024 [facility] [address] [place] [address] 52498 CHEM 14 (METABOLIC PANEL) 74914 SGOT/AST 1920-8 13 U/L 024 [facility] [address] [place] [address] 58821 CHEM 14 (METABOLIC PANEL) 75275 SGPT/ALT 1743-4 19 U/L 024 [facility] [address] [place] [address] CHEM 14 (METABOLIC PANEL) 69134 Total Bilirubin 1975-2 0.3 mg/dL 024 [facility] [address] [place] [address] CHEM 14 (METABOLIC PANEL) 86441 Calcium 45831-9 9.4 mg/dL 024 [facility] [address] [place] [address] CHEM 14 (METABOLIC PANEL) 59061 Corrected Calcium 54625-5 10.3 mg/dL 024 [facility] [address] [place] [address] CHOLESTEROL 50018 Cholesterol 2093-3 177 mg/dL 024 [facility] [address] [place] [address] COMPLETE CBC W/ DIFF WBC 80052 WBC 6690-2 6.8 K/ul 024 [facility] [address] [place] [address] 49616 COMPLETE CBC W/ DIFF WBC 16191 RBC 789-8 3.89 M/uL 024 [facility] [address] [place] [address] 99655 COMPLETE CBC W/ DIFF WBC 31435 Hemoglobin 718-7 10.6 g/dL 024 [facility] [address] [place] [address] 87945 COMPLETE CBC W/ DIFF WBC 07876 Hematocrit 4544-3 32.2 % 024 [facility] [address] [place] [address] 18255 COMPLETE CBC W/ DIFF WBC 40803 MCV 787-2 82.9 fL 024 [facility] [address] [place] [address] 84214 COMPLETE CBC W/ DIFF WBC 97282 MCH 785-6 27.3 pg 024 [facility] [address] [place] [address] 89275 COMPLETE CBC W/ DIFF WBC 50216 MCHC 786-4 32.9 g/dL 024 [facility] [address] [place] [address] 34693 COMPLETE CBC W/ DIFF WBC 24383 RDW 788-0 15.5 % 024 [facility] [address] [place] [address] 88688 COMPLETE CBC W/ DIFF WBC 14890 Platelet Count 777-3 303 K/uL 024 [facility] [address] [place] [address] 86596 COMPLETE CBC W/ DIFF WBC 34858 MPV 15162-4 8.0 fL 024 [facility] [address] [place] [address] 65594 COMPLETE CBC W/ DIFF WBC 60727 Neutrophils % 770-8 51.2 % 024 [facility] [address] [place] [address] COMPLETE CBC W/ DIFF WBC 05741 Lymphocytes % 736-9 39.8 % 024 [facility] [address] [place] [address] COMPLETE CBC W/ DIFF WBC 87309 Monocytes % 5905-5 6.7 % 024 [facility] [address] [place] [address] 52234 COMPLETE CBC W/ DIFF WBC 65883 Eosinophils % 713-8 2.1 % 024 [facility] [address] [place] [address] 93300 COMPLETE CBC W/ DIFF WBC 48544 Basophils% 706-2 0.2 % 024 [facility] [address] [place] [address] 21162 COMPLETE CBC W/ DIFF WBC 53050 Absolute Neutrophil 751-8 3482 /ul 024 [facility] [address] [place] [address] 35063 COMPLETE CBC W/ DIFF WBC 26754 Absolute Lymphocyte 19160-7 2706 /ul 024 [facility] [address] [place] [address] 96260 COMPLETE CBC W/ DIFF WBC 33736 Absolute Monocyte 742-7 456 /ul 024 [facility] [address] [place] [address] 60508 COMPLETE CBC W/ DIFF WBC 79425 Absolute Eosinophil 711-2 143 /ul 024 [facility] [address] [place] [address] 51852 COMPLETE CBC W/ DIFF WBC 12079 Absolute Basophil 704-7 14 /ul 0[address] [facility] [address] [place] [address] 20989 [id number] IN [facility] Glyco HGB A1C 69623-2 7.0 % 024 [facility] [address] [place] [address] 98943 [id number] IN [facility]8 eAG 08044-8 154 mg/dL 024 [facility] [address] [place] [address] 68207 Procedures Procedure Codes Date Annual Wellness Visit (Initial Visit) CPT-4: G04 38 07/24/2024 FLU VACC CELL CULT PRSV FREE CPT-4: 62208 07/2024 Most recent A1c = 7.0% and < 8.0% CPT-4: 3051F 07/24/2024 FLUCEL VAX PFS VAC NO PRSV 0.5ML IM CPT-4: 88451 07/24/2024 Admin flu virus vaccine CPT-4: G0008 07/24/20 24 LEVEL OF ACTIVITY ASSESS CPT-4: 1003F 024 PT SCRN TBCO ID NON USER CPT-4: G9903 07/15 Current tobacco non-user CPT-4: 1036F 024 Amnt pain noted; none prsnt CPT-4: 1126F 07/15 MED LIST DOCD IN [facility] CPT-4: 1159F 07/24/2024 RVW MEDS BY RX/DR IN [facility] CPT-4: 116F 2023 Patient Screened for Future Fall Risk CPT-4: 110 0F 07/24/2024 Fall plan of care doc'd CPT-4: 0518F 07/24/20 24 Most recent A1c = 7.0% and < 8.0% CPT-4: 305F 06/24/2024 MED LIST DOCD IN [facility] CPT-4: 1159F 06/24/2024 RVW MEDS BY RX/DR IN [facility] CPT-4: 1160F 2023 Discharge Meds Reconciled w/ Current Med list CP T-4: 1111F 06/24/2024 Amnt pain noted; none prsnt CPT-4: 1126F 06/[address] CPT-4: 1159F 05/21/2024 RVW MEDS BY RX/DR IN [facility] CPT-4: 1160F 2023 Discharge Meds Reconciled w/ Current Med list CP T-4: 1111F 05/21/2024 Amnt pain noted; none prsnt CPT-4: 1126F 04/2024 Screening for clinical depre ssion is negative, follow-up plan not required CPT-4: G8510 05/21/2024 Patient Screened for Future Fall Risk CPT-4: 110 0F 05/21/2024 Fall plan of care doc'd CPT-4: 0518F 05/21/20 24 Cologuard CPT-4: 66022 Unknown [id number] CPT-4: 62068 Unknown Gastroenterology Referral SNOMED CT: 306 057671 CPT-4: R12 Unknown Vital Signs Date Vital 07/24/2024 Blood Pressure 1: 120/82 Code: 8480-6 BMI: 32.3 Code: 21605-6 Heart Rate 1: 81 bpm Height: 6'4 Code: 8302-2 Respiratory Rate: 16 bpm SpO2: 97% Temperature: 36.1 (C) / 97.0 (F) Weight: 265 lbs Code: 14000-7 06/24/2024 Blood Pressure 1: 134/76 Code: 8480-6 BMI: 34.6 Code: 76993-7 Heart Rate 1: 86 bpm Height: 6'4 Code: 8302-2 Respiratory Rate: 17 bpm SpO2: 94% Temperature: 36.4 (C) / 97.6 (F) Weight: 284 lbs Code: 27014-8 05/21/2024 Blood Pressure 1: 135/82 Code: 8480-6 BMI: 32.3 Code: 18978-6 Heart Rate 1: 84 bpm Height: 6'4 Code: 8302-2 Respiratory Rate: 17 bpm SpO2: 93% Temperature: 35.6 (C) / 96.0 (F) Weight: 265 lbs Code: 76621-4 Reason For Visit Reason For Visit Effective [...] disease)[ICD10: K21.9] Diagnosis: Gastrostomy present[ICD10: Z93.1] Diagnosis: [facility] (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[ICD10: Z79.4] Diagnosis: At high risk for falls[ICD10: Z91.81] [facility] Office [address] [place] [address] CPT-4: G0438 4 (76024) Home or Residence Visit Est Pt - Low Level, 30 mins Diagnosis: Hemiparesis due to recent cerebrovascular accident (CVA)[ICD10: I69.359] Diagnosis: Diabetes mellitus due to underlying condition with diabetic neuropathy, with long-term current use of insulin[ICD10: E08.40] 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[ICD10: Z79.4] Diagnosis: Diplopia[ICD10: [...] Diagnosis: At high risk for falls[ICD10: Z91.81] [facility] Office [address] [place] [address] CPT-4: 68477 4 (10511) Home or Residence Visit Est Pt - [...] cancer screening[ICD10: Z12.11] Diagnosis: Paroxysmal cough[ICD10: R05.8] [facility] Office [address] [place] [address] CPT-4: 06987 4 (03498) Home or Residence Visit KNAPSACK SPRAYER - Moderate Level, 60 mins Diagnosis: Hemiparesis due to recent cerebrovascular accident (CVA)[ICD10: I69.359] Diagnosis: Gastrostomy present[ICD10: Z93.1] Diagnosis: Diabetes mellitus due to underlying condition with diabetic neuropathy, with long-term current use of insulin[ICD10: E08.40] Diagnosis: Hypertension with heart disease[ICD10: I11.9] Diagnosis: Dysphagia as late effect of cerebrovascular accident (CVA)[ICD10: I69.391] 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 . On PT progressing J45.909-493.90 Asthma K21.9-530.81 GERD (gastroesophageal reflux disease): On Pepcid 07/24/2024 Appointment: Sean Kyle WPtel: [address] [facility] E034 07/24/2024 Patient Education: Obesity Completed [...] insulin: Stable. Hba1c 7.0. 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 bound. On PT/OT for strengthening, balance, coordination Z12.11-V76.51 Colon cancer screening: Fuentes R05.8-786.2 Paroxysmal cough: poss due to poor pharyngeal reflex, GERD . Try Protonix. Oropharyngeal suctioning. Order Suction Aspirator 06/24/2024 Appointment: Sean Kyle WPtel: [address] [place], [place] [address] E034 06/24/2024 Patient Education: Obesity Completed 06/24/2024 Patient Education: Patient Medication Summary Completed 06/24/2024 Care Plan: Cologuard Ordered 06/15 Appointment: Oscar Hoyt WPtel: [address] [facility] [address] [id number] [place] Phone Call 06/20/2024 Appointment: Mony Moseley WPtel: [address] [id number] [place] Phone Call 06/06/2024 [facility]ointment[facility] [facility] [facility] 05/26/2024 Visit Plan: I69.359-438.20 [...] late effect of cerebrovascular accident (CVA) Z79.4- medical terminologist (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 I69.322-438.13 Dysarthria as [...] findings 05/21/2024 Appointment: Sean [facility] [address] [facility] [facility] 05/21/2024 Patient Education: Patient Medication Summary Completed 05/21/2024 Patient Education: Obesity Completed 05/21/2024 Referral: ADARTIS WPtel: [address] [place], [place] [address] Referral faxed to: Agency Name: [facility] Agency Address: [address] [address] Agency Phone #: [phone] Agency Agency will contact the patient to schedule Order Faxed Referral: Pending Medical Records Information [facility] requires Consent when requesting records, there i currently no consent on file for the patient can we get consent uploaded to [facility] so we can finish the request. thank you On Hold Awaiting Documentation Referral: [facility] Medical Group WPtel: [phone] [facility]- [address] Ruiz [address] [facility], [address], [place] [address] Reprocess Referral: Provider Ghada Hurtado WPtel: [address] [place] [address] 05/22/2024 order faxed to agency. Not Taken Up Referral: Residential home health WPtel: [facility] [facility] [place] Referral ACT - [facility] Referral: Pending Board Attendant Referral Information lvm , provided the above agency information. Instructed to call O&R department if they do not hear back from agency withing 7-10 days.05/22/24 no answer, lvm to cb Spoke with office HVS Referral faxed to:[facility] Agency Name: _[facility] Agency Address:_ [address], [place] [address] Agency Phone #:_ Agency _ Agency will contact the patient to schedule appointment. Order Faxed Referral: Sean Kyle WPtel: [address] [facility] [address] [facility] [place] Agency contacted, confirmed they're accepting new patients. They will run insurance once order is received Referral faxed to: Agency Name: [facility] Agency Address: [address] , [address], [place] [address] Agency Phone #:[phone] Agency Agency will ship to patient. pt has referral info Order Faxed Referral: Residential home health WPtel: [address] [place] [place] Referral ACT - HH Cert Referral: Madiha Hurtado WPtel: [address] [facility] Notes & referral faxed to [facility] [phone] Order Faxed Referral: Pending Incontinence Supplies Order Information called and spoke to Nanette patient ANAYELIA an advised contact number given Order Faxed Referral: Sean Kyle WPtel: [address] [facility] 06-24-2024. Called pt. spoke with Jenn [...] all available medical records at my disposal. [id number] Hemiparesis due to recent cerebrovascular accident (CVA): [...] placed R05.8-786.2 Paroxysmal cough R26.9-781.2 Gait abnormality: [facility] . On PT progressing J45.909-493.90 [...] insulin: Stable. Hba1c 7.0. 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 bound. On PT/OT for strengthening, balance, [...] late effect of cerebrovascular accident (CVA) Z79.4- medical terminologist (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 I69.322-438.13 Dysarthria as [...]
--- OUTSIDE RECORDS SUMMARY | 2025-03-01 22:30 | XMS_ITS | Clinical Summary ---
Author Organization [facility] Address [address] [place] [address] Care Team Providers Care Digital Associate Name Role Phone Sean Kyle MD Primary Care Provider [phone] Allergies Active Allergy Reactions Criticality Noted Date [...] Date Confusion 05/25/2024 Near syncope 05/22/2024 Asthma ([facility]) 05/22/2024 Dysphagia following cerebral infarction 03/19/20 24 Cerebrovascular accident ([facility]) 03/12 Staphylococcus aureus infection 02/08/2024 [...] LDL-C. Mika EATON et al. RAFFI. 2013;310(19): 3540-2247 ([email or web address]/faq/[email or web address]) CHOL/HDLC RATIO <5.0 (calc) 5.3High Non HDL [...] needs weight loss desperately and referred to bioinformatics analyst asked him to stop naproxen Atherosclerosis of coronary artery 01/23/2018 Overview (05/22/2024): Last Assessment & Plan: without angina needs more aggressive RFM continue aspirin Controlled type 2 diabetes francisco carney without complication, without long-term current use of insulin ([facility]) 09/28/2011 Resolved Problems Problem Noted [...] History of ETOH use prior to stroke [facility] Utilities Answer Date Recorded In the past 12 months has Moxie Jean, [facility], oil, or water [employer] threatened to shut off services in your [...] any time in the [facility], were you homeless or living in a alf (including now)? Patient unable to answer 05/23/2024 [...] 7.4(H) <5.7 % 05/23/2024 1:29 AM CDT [facility] Comment: ADA GUIDELINES 2010 5.7 TO 6.4% INCREASED RISK OF DIABETES > OR = 6.5% CONSISTENT WITH DIABETES ESTIMATED AVG GLUCOSE 166 mg/dL 05/23/2024 1:29 AM CDT [facility] 05/22/2024 6:25 PM CDT Yaritza Cowart NP LABORATORY Final Result [facility] [address] [place] [address], from Last 3 Months or Most Recently Relevant to Health Maintenance Insurance MEDICARE Advance Directives * Full Code (Latest Code Status on File) Date Activated Date Inactivated Comments 05/22/2024 11:15 PM 05/25/2024 9:20 PM Care Teams Digital Associate Relationship Specialty Start Date End Date Sean Kyle MD [address] [address] PCP - General INTERNAL MEDICINE 05/22/24
--- OUTSIDE RECORDS SUMMARY | 2025-03-01 22:31 | XMS_ITS | Encounter Summary ---
Author Organization [facility] Health Address [address] [place] [address] Care Team Providers Care Dental Assistant Name Role Phone Lisy Olmedo MD Primary Care Provide r Encounter Details Date Type Department Care Team (Latest Contact Info) Description 01/29/2018 2:26 PM CDT Hospital Encounter [facility] [address] [place] [id number] Ruby Valdez MD [facility] [address] [place] [phone] [facility] Social History Tobacco Use [...] Recorded Patient Health Questionnaire-2 Score 0 09/17/2024 [facility] of Occupat ional Health - Occupational Stress [...] No 05/26/2024 Housing Stability Vital Sign Answer Eirc e Recorded In the last 12 months, [...] 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 No / Unsure 10/18/2022 9:47 AM CLINIC SCHEDULER documented as of this encounter Functional Status [...] things Not at all 09/17/2024 8:20 AM CLINIC SCHEDULER Bienvenido Brooks MA Feeling down, depressed, or hopeless Not at all 09/17/2024 8:20 AM CLINIC SCHEDULER Bienvenido Brooks MA Patient Health Questionnaire-2 Score 0 09/17/2024 8:20 AM CLINIC SCHEDULER Kirt Brooks MA * Question Answer Date of Assessment Author Trouble falling or staying asleep, or sleeping too much Not at all 09/17/2023 1:24 PM CLINIC SCHEDULER Alice Balbuena SN Feeling tired or having derek le energy Not at all 09/17/2023 1:24 PM CLINIC SCHEDULER Alice Balbuena SN Poor appetite or overeating Not at all 09/17/2023 1: 24 PM CLINIC SCHEDULER Alice Balbuena SN Feeling bad about yourself - or that you are a failure or have let yourself or your family down Not at all 09/17/2023 1:24 PM CLINIC SCHEDULER Alice Moran SN Trouble concentrating on thi ngs, such as reading the newspaper or watching television Not at all 09/17/2023 1:24 PM CLINIC SCHEDULER Alice Balbuena SN Moving or speaking so [...] Description 03/11/2025 8:40 AM CDT Office Visit [facility] - Family Medicine [address] [place] [address] Kiana Cole MD [address] [place] [address] documented as of this encounter Visit Diagnoses Not on filedocumented in this encounter Additional Health Concerns Infection Onset Date Last Indicated Resolved Time COVID-19 Under Investigation 07/26/2022 07/26/2022 07/26/2022 5:54 PM CDT COVID-19 Under Investigation 04/10/2024 04/10/2024 04/10/2024 2:48 PM CDT documented as of this encounter Care Teams Dental Assistant Relationship Specialty Start Date End Date Lisy Olmedo MD PCP - General 04/20/09 05/09/22 documented as of this encounter
--- OUTSIDE RECORDS SUMMARY | 2025-03-01 22:31 | XMS_ITS | Clinical Summary ---
Author Organization [facility] Address [address] [facility] [place] [address] Care Team Providers Care Refractive Surgeon Name Role Phone Sylvain Daniels MD Unavailable [phone] Kiana Cole MD Primary Care Provider Source Comments [facility],non-owned Affiliates and Associated Physician Practices is amultiple site organization consisting of ambulatory clinics and hospital sitesin [place], [place], [place] and [place]. This disclosure is being madepursuant to the Care Everywhere program and may not contain all information available regarding this patient. 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 Mika SS et al. RAFFI. 2013;310(19): 4881-0688 (http://education.Playtika/faq/TOE528) CHOL/HDLC RATIO <5.0 (calc) 5.3High Non HDL [...] needs weight loss desperately and referred to cad administrator asked him to stop naproxen Atherosclerosis of [...] Team Description 01/26/2025 Travel 01/21/2025 Nurse Triage [facility] - Family Medicine [address] [place] [address], [address] [place] [address] Kiana Cole MD Order from [...] Recorded Patient Health Questionnaire-2 Score 0 09/17/2024 [facility] of Occupat ional Health - Occupational Stress [...] 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 Not on file Not on file Last Filed Vital Signs Vital Sign Reading Time Taken Comments Blood Pressure 124/83 09/17/2024 8:17 AM [facility] Pulse 101 09/17/2024 8:17 AM [employer] [facility] Temperature 35.8 C (96.5 F) 09/17/2024 8:17 AM [employer] [facility] Respiratory Rate 10 08/29/2024 8:44 AM [employer] [facility] Oxygen Saturation 96% 09/17/2024 8:17 AM [employer] [facility] Inhaled Oxygen Concentration 21% 02/15/2024 3 :17 PM CDT Weight 120.2 kg (265 lb) 09/17/2024 8:17 AM [employer] Height 193 cm (6' 4 ) 09/17/2024 8:17 AM [employer] [facility] Body Mass Index 32.26 09/17/2024 8:17 AM [employer] [facility] Plan of Treatment Upcoming Encounters Date Type Department Care Team (Late st Contact Info) Description 03/11/2025 8:40 AM CDT Office Visit [facility] - Family Medicine [address], [facility] [address] [place] [address] Kiana Cole MD [address] [place] [address] Health Maintenance Due Date Last Done Comments [...] CARE (AMB) [facility] Routine 09/17/2024 9:38 AM [employer] [facility] Type 2 diabetes mellitus without complication, with long-term current use of insulin EYE EXAM 08/11/2024 BASIC METABOLIC PANEL (CALCIUM TOTAL) Routine 06/04/2024 11:30 AM CDT ENDOSCOPY, COLON, SCREENING Routine 11/12/2020 12:12 PM [employer] [facility] MICROALB/CREAT RATIO URINE RANDOM PANEL 07/23/2020 6:49 AM CDT HEPATITIS C AB W/RFLX TO HCV RNA QN PCR 07/23/2020 6:49 AM CDT from Last 3 Months or Most Recently Relevant to Health Maintenance Results * (ABNORMAL) HEMOGLOBIN A1C - POINT OF CARE (AMB) [facility] (09/17/2024 9:38 AM [employer] [facility]) Hemoglobin A1c POCT 6.2(A) 4.2 - 5.8 % QC Verified Yes Yes Blood BLOOD SPECIMEN / Unknown 09/17/2024 9:38 AM [employer] [facility] us Kiana Cole MD LAB - POINT OF CARE ORD ERABLES Final Result * EYE EXAM (08/11/2024) Anatomical Region Laterality Modality Other Narrative 08/11/2024 Ordered by an unspecified provider. us Scanned Document SCANNING ONLY Final Result * (ABNORMAL) BASIC METABOLIC PANEL (CALCIUM TOTAL) (06/04/2024 11:30 AM CDT) BUN 18 7 - 26 mg/dL 06/04/2024 12:27 PM [facility] Creatinine 0.78 0.71 - 1.16 mg/dL 06/04/2024 12:27 PM [facility] Sodium 135(L) 136 - 145 mmol/L 06/04/2024 12:27 PM [facility] Potassium 4.1 3.5 - 4.5 mmol/L 06/04/2024 12:27 PM [facility] Chloride 102 98 - 107 mmol/L 06/04/2024 12:27 PM [facility] CO2 25 22 - 29 mmol/L 06/04/2024 12:27 PM [facility] Glucose 138(H) 70 - 115 mg/dL 06/04/2024 12:27 PM [facility] Calcium 9.6 8.4 - 10.2 mg/dL 06/04/2024 12:27 PM [facility] Anion Gap 8 6 - 16 06/04/2024 12:27 PM [facility] BUN/Creatinine Ratio 23 7 - 23 06/04/2024 12:27 PM [facility] Osmolality Calculated 284 275 - 295 mOsm/kg 06/04/2024 12:27 PM [facility] eGFR by CKD-EPI >90 >=90 mL/min/1.7 3 m2 06/04/2024 12:27 PM [facility] Blood BLOOD SPECIMEN / Unknown Lab Venipuncture / Unknown 06/04/2024 11:30 AM CDT 06/04/2024 11:51 AM CDT us Jason Coppola MD LAB - CHEMISTRY ORDERABLES Fin al Result [place] [id number] [place] [address], [facility] [phone] * ENDOSCOPY, COLON, SCREENING (11/12/2020 12:12 PM [employer] [facility]) Report Endoscopy POC Endoscopy Department Report _ [...] colon K64.8, Other hemorrhoids CPT copyright 2019 [employer]. All rights reserved. The codes documented in this report are preliminary and upon nylon hot wire cutter review may be revised to meet current compliance requirements. Jodi Vernon MD 11/12/2020 12:57:40 PM Note Initiated On: 11/12/2020 12:12 PM Number of Addenda: [address] [id number] [facility] 11/12/2020 12:1 2 PM [employer] [facility] us Jodi Vernon MD GI PROCEDURE ORDERABLES Ed ited Result - Final [facility] * HEPATITIS C AB W/RFLX TO HCV RNA QN PCR (07/23/2020 6:49 AM CDT) Pathologist [facility] Hepatitis C Antibody NON-REACTI VE NON-REACT [facility] Signal to Cut-Off 0.09 <1.00 [facility] Comment: HCV antibody was non-reactive. There is no laboratory evidence of HCV infection. In most cases, no further action is required. However, if recent HCV exposure is suspected, a test for HCV RNA (test code 94792) is suggested. For additional information please refer to http://education.Foldees/faq/FNN46i9 (This link is being provided for informational/ educational purposes only.) Test Performed at: [facility] [id number] EH PURVIS DO,MPH 07/23/2020 6:49 AM CDT 07/23/2020 6:51 AM CDT Lisy Olmedo MD LAB - CHEMISTRY ORDER GISSEL Final Result Performing Organization Address City/[facility] [address]/ZIP Co de Phone Number [facility] [address] [place] [phone] * MICROALB/CREAT RATIO URINE RANDOM PANEL (07/23/2020 6:49 AM CDT) Pathologist [facility] Creatinine Urine 270 20 - 320 mg/dL [...] within a diagnostic category. Test Performed at: [facility] [id number] EH PURVIS DO,MPH 07/23/2020 6:49 AM CDT 07/23/2020 6:51 AM CDT us Lisy Olmedo MD LAB - URINE CHEMISTRY ORDERABLES Final Result [facility] [id number] [place] [address] from Last 3 Months or Most Recently Relevant to Health Maintenance Insurance [place] [address] [id number] [facility] [id number]|2025-03-01 22:31:00|2025-03-01 22:30:00|XMS_ITS|RONALD HARRELL|External Medical Summaries|[id number]|" Encounter Summary Created on: March 01, 2025 Yaya Solorio Jr. : 1960 Sex: Male Author Organization [facility] Address [address] [facility] [place] [address] Care Team Providers Care Refractive Surgeon Name Role Phone Sylvain Daniels MD Unavailable [phone] Kiana Cole MD Primary Care Provider Sean Kyle MD Primary Care Provider [phone] Kiana Cole MD Primary Care Provider Reason for Visit * Reason Onset Date Comments Future Appointment 06/10/2024 Encounter Details Date Type Department Care Team (Late st Contact Info) Description 06/10/2024 Telephone [facility] - Cardiology [address] [place] [address] Andrae Norton MD [address] [facility] [place] [address] Future Appointment Social History Tobacco Use Types [...] Recorded Patient Health Questionnaire-2 Score 0 06/04/2024 [facility] Occupat ional [facility] - Occupational Stress Questionnaire Answer Date [...] 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 [...] 03/11/2025 8:40 AM CDT Office Visit [facility] [address] [address] Kiana Cole MD [address] [place], [place] [phone] documented as of this encounter Visit Diagnoses Not on filedocumented in this encounter Care Teams Refractive Surgeon Relationship Specialty Start Date End Date Kiana Cole MD [address] [place], [place] [phone] PCP - General Internal Medicine 05/22/24 08/04/24 Sean Kyle MD [address] [place] [phone] PCP - General Internal Medicine 08/05/24 09/15/24 Kiana Cole MD [address] [place] [address] PCP - General Internal Medicine 09/16/24 Sylvain Daniels MD Family Medicine 02/15/24 documented as of this encounter "
[2025-03-01 22:32] LABS: Alanine Aminotransferase 30 U/L (6-50); Albumin Level 4.6 g/dL (3.5-5.1); Alkaline Phosphatase 61 U/L (38-126); Anion Gap 10 mmol/L (4-12); Aspartate Amino Transferase 44 U/L (17-59); Bilirubin,Total 0.5 mg/dL (0.2-1.3); Blood Urea Nitrogen 22 mg/dL (9-20); Calcium 9.1 mg/dL (8.4-10.2); Carbon Dioxide 29 mmol/L (22-30); Chloride 103 mmol/L (98-107); Estimated CRCL calculation 99 ml/min; Estimated Glomerular Filt Rate > 60; Glucose 125 mg/dL (65-110); Lipase 66 U/L (23-300); Potassium 5.2 mmol/L (3.4-5.0); Sodium 142 mmol/L (137-145)
--- NOTE | 2025-03-01 23:01 | PC.NURSE ---
trop 1 added to labs already sent down - spoke with glenn in lab
[2025-03-01] MEDS: ONDANSETRON INJ 4 MG/2 ML VIAL IV PUSH (23:03)
[2025-03-01 23:26] LABS: Troponin I < 0.012 ng/mL (0.000-0.034)
[2025-03-01 23:49] LABS: Add Urine Microscopic? YES; Appearance Urine Clear (Clear); Bacteria Urine None Seen /hpf; Bilirubin Urine Negative (Negative); Blood Urine Negative (Negative); Color Urine Dark Yellow (Yellow); Glucose Urine UA Negative (Negative); Ketones Urine Trace mg/dL (Negative); Leukocyte Esterase Ur Negative LEU/UL (Negative); Mucus Urine Present /lpf; Need Manual Microscopic Reviewed; Nitrate Urine Negative (Negative); Protein Urine 1+ mg/dL (Negative); Specific Grav Ur 1.032 (1.001-1.035); Squamous Epithelial Cell Urine None Seen /hpf (Few); WBC Urine 0-5 /hpf (0-3); pH Urine 5.5 (5.0-9.0)
[2025-03-02] VITALS: PULSE 61; RESP 21; O2SAT 100
[2025-03-02 00:02] VITALS: BP 126/83; PULSE 60; RESP 21
[2025-03-02 00:15] VITALS: PULSE 62; RESP 22
[2025-03-02 00:16] VITALS: BP 126/82; PULSE 59; RESP 23; O2SAT 98
[2025-03-02 00:36] VITALS: BP 125/65; PULSE 58; RESP 16; TEMP 37.1; O2SAT 95
--- NOTE | 2025-03-02 03:13 | ED_ITS ---
HPI - Nausea/Vomiting/Diarrhea General Chief complaint: Nausea/Vomiting/Diarrhea Stated complaint: n/v, clammy Time Seen by Provider: 03/01/25 22:06 History of Present Illness HPI Narrative: Patient presenting with nausea vomiting that happened while he was watching tPA any got clammy, this has happened in the past. He does have a heart history. He is currently denying any complaints including any abdominal pain. Related Data Home Medications Medication Instructions Recorded Confirmed Last Taken Type ipratropium 0.5 mg-albuterol 3 mg 3 ml inhalation Q12H 11/27/24 11/28/24 Unknown History (2.5 mg base)/3 mL nebulization soln Allergies Allergy/AdvReac Type Severity Reaction Status Date / Time lisinopril Allergy Unknown Verified 03/01/25 19:30 penicillin G Allergy Swelling Verified 03/01/25 19:30 Review of Systems 2 Review of Systems: All systems reviewed & are unremarkable except as noted in HPI and below PMFSH Past Medical History Medical History CVA (cerebral vascular accident) January 2024 History of coronary artery disease Diabetes mellitus Hypertension Basilar artery stenosis Balance disorder 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 Impaired communication with impaired cognition Vision disturbance Brainstem stroke Surgical History Surgical History History of open heart surgery Family History Family History Other Controlled diabetes mellitus with hyperglycemia Social History Social History Smoking status: Current some day smoker Tobacco type: cigars Additional smoking assessment comments: 2 cigars a month Alcohol intake: former Substance use: never Substance use type: does not use Do You Feel Safe in your Home?: No Lack of Transportation: No Lack of Food: Never True Current Housing: I Have Housing Concerned About Future Housing: No Difficulty Paying Gas/Electric Bills: No Difficulty Paying for Meds: No Currently Unemployed: No Education: Bachelor's Degree Difficulty w/ Childcare or Family Care: No Living arrangements: with family Additional living arrangements comments: With sister Gender identity (if verbalized by the patient): Male Sexual Orientation (if Verbalized by the Patient): Straight or Heterosexual Spiritual care concerns: No Exam 2 Narrative: EXAMINATION OF ORGAN SYSTEMS/BODY AREAS: Constitutional: Vital signs per nursing GENERAL:[No acute distress, non-toxic appearing.] HEAD: Normal with no signs of head trauma. EYES: EOMI, conjunctiva normal ENT: Hearing grossly intact LUNGS: Nonlabored breathing. HEART: [Regular rate and rhythm] ABD: [Soft], [nontender to palpation] EXT: Normal range of motion SKIN: [No rashes or lesions.] NEURO: [Alert. ] PSYCH: Normal affect Course Vital Signs Vital signs: Vital Signs Temperature 97.4 F L 03/01/25 19:30 Pulse Rate 64 03/01/25 19:30 Respiratory Rate 16 03/01/25 19:30 Blood Pressure 124/73 03/01/25 19:30 Pulse Oximetry 99 03/01/25 19:30 Oxygen Delivery Room Air 03/01/25 19:30 Temperature 98.7 F 03/02/25 00:36 Pulse Rate 58 L 03/02/25 00:36 Respiratory Rate 16 03/02/25 00:36 Blood Pressure 125/65 03/02/25 00:36 Pulse Oximetry 95 03/02/25 00:36 Oxygen Delivery Room Air 03/01/25 19:30 MDM - Nausea/Vomiting/Diarrhea MDM Narrative Medical decision making narrative: 1) Differential diagnosis: Intra-abdominal infection, SBO, ACS 2) Comorbidities: CVA, COPD 3) External notes reviewed: Prior admission records 4) History sources independently obtained from: Family at bedside 5) Discussion of management with: [] 6) Independent interpretation of: EKG on my independent interpretation shows sinus bradycardia rate 59, AL 170, QRS 86, QTC 434, normal axis, inverted T-waves; compared to prior EKG, no significant change 7) Diagnostic tests or therapies considered but not ordered: 8) Social determinants of health: 9) Shared decision making: Patient presents with an episode of emesis, family concerned he may have a UTI, labs obtained here within acceptable limits, very minimally elevated white blood cell count however patient without any abdominal tenderness or pain, troponin negative, no ischemic changes on EKG, urinalysis without signs of UTI. Discussed with patient and family after patient got Zofran he feels much better and has no complaints and they are agreeable to outpatient management with return precautions Lab Data 03/01/25 22:10 03/01/25 22:10 Labs: Lab Results 03/01/25 03/01/25 Range/Units 22:10 23:12 WBC 10.2 H (4.5-10.0) K/mm3 RBC 4.86 (4.6-6.20) M/mm3 Hgb 12.9 L D (14.0-18.0) g/dL Hct 41.6 L (42.0-52.0) % MCV 85.6 (80-100) fl MCH 26.5 (26-34) pg MCHC 31.0 L (32-36) g/dl RDW 14.9 H (11.5-14.5) % Plt Count 245 (150-375) k/mm3 MPV 9.3 (7.4-10.4) fl Immature Gran % (Auto) 0.4 (0-0.5) % Neut % (Auto) 77.5 H (45.5-73.1) % Lymph % (Auto) 18.0 L (18.3-44.2) % [place] % (Auto) 3.6 (2.6-8.5) % Eos % (Auto) 0.2 (0-4.4) % Baso % (Auto) 0.3 (0.2-1.2) % Lymph # (Auto) 1.84 (0.9-3.2) K/mm3 [place] # (Auto) 0.4 (0.1-0.6) K/mm3 Eos # (Auto) 0.0 (0-0.3) K/mm3 Baso # (Auto) 0.0 (0.0-0.1) K/mm3 Abs Immat Gran (auto) 0.04 H (0.00-0.031) K/mm3 Absolute Neuts (auto) 7.9 H (1.3-6.7) K/mm3 Absolute Nucleated RBC 0.000 (0.0-0.012) K/mm3 Nucleated RBC % 0.0 (0.0-0.2) % Sodium 142 (137-145) mmol/L Potassium 5.2 H (3.4-5.0) mmol/L Chloride 103 (98-107) mmol/L Carbon Dioxide 29 (22-30) mmol/L Anion Gap 10 (4-12) mmol/L BUN 22 H (9-20) mg/dL Creatinine 0.89 (0.7-1.3) mg/dL Estim Creat Clear Calc 99 ml/min Estimated GFR > 60 (59 - ) Glucose 125 H (65-110) mg/dL Calcium 9.1 (8.4-10.2) mg/dL Total Bilirubin 0.5 (0.2-1.3) mg/dL AST 44 (17-59) U/L ALT 30 (6-50) U/L Alkaline Phosphatase 61 (38-126) U/L Troponin I < 0.012 (0.000-0.034) ng/mL Total Protein 9.0 H (6.3-8.2) g/dL Albumin 4.6 (3.5-5.1) g/dL Lipase 66 (23-300) U/L Urine Color Dark yellow (Yellow) Urine Appearance Clear (Clear) Urine pH 5.5 (5.0-9.0) Ur Specific [place] 1.032 (1.001-1.035) Urine Protein 1+ H (Negative) mg/dL Urine Glucose (UA) Negative (Negative) mg/dL Urine Ketones Trace H (Negative) mg/dL Ur Blood (Man) Negative (Negative) Urine Nitrate Negative (Negative) Urine Bilirubin Negative (Negative) Urine Urobilinogen 1.0 (<2.0) mg/dL Add Ur Microanalysis Reviewed Leukocyte Esterase Rfl Negative (Negative) PRIMITIVO/UL Urine RBC 3-5 H (0-2) /hpf Urine WBC 0-5 (0-3) /hpf Ur Squamous Epith Cells None seen (Few) /hpf Urine Bacteria None seen /hpf Urine Casts 3-5 Urine Mucus Present /lpf Discharge Plan Discharge Clinical Impression: Nausea & vomiting Patient Disposition: Home Condition: Stable Instructions: Acute Nausea and Vomiting (ED) Additional Instructions: Please follow up with your doctor; you can always return for any further issues. You can take the medication as prescribed for nausea. Patient Language: Singaporean Prescriptions: New ondansetron 4 mg tablet,disintegrating 4 mg PO Q8H PRN (Reason: nausea and vomiting) Qty: 10 0RF No Action ipratropium-albuterol 0.5 mg-3 mg(2.5 mg base)/3 mL Solution For Nebulization 3 ml INHALATION Q12H benzonatate 100 mg Capsule 100 mg PO TID PRN (Reason: cough) Qty: 30 0RF cetirizine 10 mg Tablet 10 mg PO DAILY Qty: 30 0RF polyethylene glycol 3350 [Miralax] 17 gram Powder In Packet 17 g PO QAM Qty: 30 0RF atorvastatin 40 mg Tablet 40 mg PO HS Qty: 30 0RF buspirone 5 mg Tablet 5 mg PO BID Qty: 60 0RF acetaminophen 325 mg Tablet 650 mg PO Q6H PRN (Reason: unknown) Qty: 90 0RF insulin glargine [Lantus U-100 Insulin] 100 unit/mL solution 5 unit subcut QPM Qty: 10 0RF clopidogrel 75 mg Tablet 75 mg PO DAILY Qty: 30 0RF famotidine 20 mg Tablet 20 mg PO BID Qty: 60 0RF amlodipine 10 mg Tablet 10 mg PO DAILY Qty: 30 0RF aspirin 81 mg Tablet,Chewable 81 mg PO DAILY Qty: 30 0RF folic acid 1 mg Tablet 1 mg PO DAILY Qty: 30 0RF Multiple Vitamin-Minerals Tablet 1 tablet PO DAILY Qty: 30 0RF guaifenesin [Mucus Relief ER] 600 mg Tablet Extended Release 12hr 600 mg PO BID Qty: 60 0RF Follow-up/Referrals: UNKNOWN,DOCTOR [Primary Care Provider] -
== END 2025-03-02 00:37 | disposition home or self-care (01) ==
PROVIDERS: Emergency Provider Emergency Medicine
DX: R11.2 Nausea with vomiting, unspecified (principal); I25.10 Atherosclerotic heart disease of native coronary artery without angina pectoris; I10 Essential (primary) hypertension; I69.391 Dysphagia following cerebral infarction; R13.10 Dysphagia, unspecified; E11.9 Type 2 diabetes mellitus without complications; J44.9 Chronic obstructive pulmonary disease, unspecified; F17.290 Nicotine dependence, other tobacco product, uncomplicated; Z79.4 Long term (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; Z79.899 Other long term (current) drug therapy; Z79.82 Long term (current) use of aspirin; R00.1 Bradycardia, unspecified; R94.31 Abnormal electrocardiogram [ECG] [EKG]
CPT/HCPCS: 36415; 80053; 81001; 83690; 84484; 85025; 93005; 96374; 99284; J2405

== ENCOUNTER 2025-04-18 14:57 | Emergency (ER) | payer MEDICARE, MEDICAID, SELFPAY ==
--- NOTE | ~2025-04-18 | CT_ITS ---
EXAMINATION: CT abdomen pelvis wo con DATE: 04/18/2025 17:22 INDICATION: Left flank pain/injury status post fall TECHNIQUE: Computed tomography (CT) of the abdomen and pelvis was performed without intravenous contr ast. Automated exposure control and iterative reconstruction technique were employed. The dose-length product was 1086.27 mGy-cm. COMPARISON: None. FINDINGS: Lower thorax: Bibasilar scarring. Left lower lobe granuloma. Coronary artery calcifications. Severe b ilateral symmetric gynecomastia. Liver: Normal. Biliary/Gallbladder: Gallbladder is normal. No bile duct dilation. Pancreas: No mass or duct dilation. Spleen: Normal. Adrenals:No mass. Kidneys: No suspicious mass, obstructing stone, or hydronephrosis. GI tract: The rectum is dilated to 8.5 cm by formed stool, with mild wall thickening and surrounding inflammatory change. No small bowel dilation. Normal appendix. Mesentery/Peritoneum: No ascites, mass, or free air. Retroperitoneum: No mass. Atherosclerotic calcifications of intra-abdominal arterial vessels. Pelvis: Persistent urinary bladder with wall thickening. Prostatomegaly.. Soft Tissues: Left testicle is high in position, and the distal end of the inguinal canal. Small fat- containing bilateral inguinal and umbilical hernias. Bones: No acute osseous finding. IMPRESSION: Likely fecal impaction, with mild inflammatory changes. Early stercoral colitis is not excluded. Bladder wall thickening may be secondary to underdistention, chronic outlet obstruction, or cystitis. Apparent high positioning of the left testicle, correlate for pain/tenderness, or injury in that loca tion. Reviewed, dictated and finalized at location K. IMPRESSION: Likely fecal impaction, with mild inflammatory changes. Early stercoral colitis is not excluded. Bladder wall thickening may be secondary to underdistention, chronic outlet obs truction, or cystitis. Apparent high positioning of the left testicle, correlate for pain/tenderness, or injury in that location.
[2025-04-18 14:58] VITALS: BP 145/120; PULSE 75; RESP 18; TEMP 36.6; O2SAT 96
--- OUTSIDE RECORDS SUMMARY | 2025-04-18 14:59 | XMS_ITS | Data Portability ---
Author Organization [place] - [facility] [employer], Main Office Address [address] [place] [address] Assessment Encounter Date Assessment Date Assessment LastModified by Organization Details LastModified Time 08/26/2024 08/26/2024 Removal of PEG tube today in the office. Instructed to remove occlusive dressing in 72 hours, f/u PRN. [email or web address] Not available 08/27/2024 12:12:08 11/06/2024 11/06/2024 This note is dictated and transcribed by [email or web address]. Director Of Student Services variances may occur. Despite proofreading, typographical errors may occur. Occasional wrong-word or 'tqgiu-o-qdzh' substitutions may have occurred due to the inherent limitations of voice recording. Read the chart carefully and recognize, using context, where substitutions have occurred. Not available 11/06/2024 12:07:29 03/05/2025 03/05/2025 This note is dictated and transcribed by [employer]. Director Of Student Services variances may occur. Despite proofreading, typographical errors may occur. Occasional wrong-word or 'yhyry-w-trjo' substitutions may have occurred due to the inherent limitations of voice recording. Read the chart carefully and recognize, using context, where substitutions have occurred. Not available 03/05/2025 12:42:01 Plan of Treatment Reminders Order Date Submit Date Provider Last Modified By Organization Details Last Modified Time Details Appointments Establish ed Patient 15 2024 01:30P M Bernabe Rodriguez DPM Not available Not available Not available Lab None recorded. Referral None recorded. Procedures None recorded. Surgeries None recorded. Imaging None recorded. Medication Orders ketoconaz ole 2 % topical cream 2024 025 [id number], [address] [facility], [place], [place], [id number], 11/06/2024 12:09:37 Patient TargetsNo targets recorded. Patient Instructions Encounter Date Encounter Id Patient Instructions Last Modified By Organization Details Last Modified Time 11/06/2024 [id number] diabetic neuropathy education Not available 11/06/2024 12:09:29 diabetes foot health: care instructions Not available 11/06/2024 12:09:29 03/05/2025 [id number] diabetic foot care education [email or web address] Not available 03/05/2025 12:42:30 Reason for Referral None Reported. Problems Name Problem SNOMED Code Status Onset Date Resolution Date Notes Provider Name and Address Organization Details Recorded Time Difficulty eating 321159733 Active 2023 Isaac varghese MD [address], [address], [place], [address], [place] 4 12:12:51 Diabetic peripheral neuropathy 335236264 Active 2024 Bernabe Rodriguez DPM [address], [place], [address], [place] 5 12:07:37 Onychomycosis of toenails 433730964 Active 2024 Bernabe Rodriguez DPM [address], [place], [address], [place] 5 12:07:41 Diabetes mellitus 87929372 Active 2024 Bernabe Rodriguez DPM [address], [address], [place], [address], [place] 5 12:09:09 Hypertensive disorder 40322776 Active 2024 Bernabe Rodriguez DPM [address], [place], [address], [place] 5 12:39:43 Asthma 529178025 Active 2024 Bernabe Rodriguez DPM [address], [place], [address], [place] 5 12:39:52 Heart disease 65223436 Active 2024 Bernabe Rodriguez DPM [address], [place], [address], [place] 5 12:40:04 Eczema 54366480 Active 2024 Bernabe Rodriguez DPM [address], [address], [place], [address], [place] 5 12:40:13 Cerebrovascula r accident 529837081 Active 2024 Bernabe Rodriguez DPM [address], [place], [address], [place] 5 12:40:25 Disorder of eye 630871009 Active 2024 Bernabe Rodriguez DPM [address], [place], [address], [place] 5 12:40:39 Dystrophia unguium 86751195 Active 2024 Bernabe Rodriguez DPM [address], [place], [address], [place] 12:41:57 Problem Notes None recorded. Procedures Surgical History Date Name Laterality Status Provider Name and Address Organization Details Recorded Time 5 Nail Debridement completed Bernabe Rodriguez DPM [address], [place], [address], [place] 03/05/2025 12:41:40 5 Nail Debridement completed Bernabe Rodriguez DPM [address], [place], [address], [place] 11/06/2024 12:07:26 4 Blank Procedure Note completed Isaac jama MD [address] [facility] [place] [address], [place], [address], [facility] 08/26/2024 17:27:52 4 other completed Andreia Dobson MA [facility] 08/26/2024 11:53:51 other completed Andreia Dobson MA [facility] 08/25/2024 10:57:07 Imaging Results None recorded. Procedure Notes None recorded. Medical Equipment None Reported. Allergies Allergen ID Allergen Name Allergen Category Reaction Reaction Severity Criticality Documentation Date Start Date Code Code System Note Provider Name and Address Organization Details Recorded Time 39553 lisinopri l medicatio n Not available Not available Not available 08/25/2024 16919 RxNorm DEYVI Proctor, [facility] 10:57:24 54145 Product containin g penicilli n (product) medicatio n Not available Not available Not available 08/25/2024 50254 8001 SNOMED DEYVI Proctor, [facility] 10:57:59 Medications Name Sig Start Date [...] active Not Available Not Available Not Available ondansetron 4 mg disintegrati ng tablet DISSOLVE 1 TABLET ON THE TONGUE EVERY 8 HOURS NEEDED FOR NAUSEA OR VOMITING active Not Available Not Available No t Available loratadine 10 mg tablet TAKE 1 [...] Updated DateTime 11/06/2024 193.04 cm 32.3 kg/m2 805833.98 g Lucita Gotti [facility] [employer] [facility] 11/06/2024 11:25:08 Date Recorded Body height Body mass index (BMI) Body weight Provider Name and Address Organization Details Last Updated DateTime 03/05/2025 193.04 cm 32.3 kg/m2 108236.98 g Lucita Gotti [facility] [employer] [facility] 03/05/2025 11:25:00 Date Recorded Body height Body mass index (BMI) Body weight Provider Name and Address Organization Details Last Updated DateTime 08/26/2024 193.04 cm 32.3 kg/m2 379256.98 g Andreia Dobson MA [facility] [employer] [facility] 08/26/2024 11:52:41 Social History Question Answer Notes LastModified by [employer] Details LastModified Time Tobacco Smoking Status Former Smoker Andreia Dobson MA null, [facility] [employer] [facility] 08/25/2024 10:55:58 What Is Your Level Of Caffeine Consumption? None ess37 Information not available 08/26/2024 What Was The Date Of Your Most Recent Tobacco Screening? 11/06/2024 Information not available 11/06/2024 Has Tobacco Cessation Counseling Been Provided? No Information not available 11/06/2024 Sex: Unknown Functional Status Question Answer Note LastModified by [employer] Details LastModified Time Do you use any [...] Organization Details LastModified Time Father Diabetes mellitus ess37 Not available 2023 10:51:31 Father Myocardial infarction Not available 08/25 10:52:10 Father Family history of stroke Not available 2024 12:11:56 Father Arthritis Not available 11/06/2024 12:12:18 Father Heart disease Not available 2024 12:12:36 Mother Hypertensive disorder Not available 2023 10:52:28 Mother Family history of malignant neoplasm of ovary Not available 2023 10:53:11 Mother Arthritis Not available 11/06/2024 12:12:18 Sister Diabetes mellitus Not available 2023 10:53:27 Sister Hypertensive disorder Not available 2023 10:53:48 Sister Arthritis Not available 11/06/2024 12:12:18 Medical History Condition Response STROKE/TIA Y GERD/NAUSEA Y CORONARY ARTERY DISEASE (CAD) Y HYPERTENSION Y SLEEP APNEA Y DIABETES, TYPE Y HEART DISEASE/HEART PROBLEMS Y Past Encounters Encounter ID Performer Location Encounter Start Date Encounter Closed Date Diagnosis/Indication Diagnosis SNOMED-CT Code Diagnosis ICD10 Code Diagnosis Note [id number] Isaac cordova MD [facility] General Surgery [address] [facility] [place] [address] 08/26/2024 11:10:15 09/10/2024 11:42:25 Difficulty eating 633003050 R63.30 [id number] Bernabe Rodriguez DPM [facility] [place] [address] [place] [address] 11/06/2024 11:17:27 11/07/2024 13:46:01 Diabetes mellitus 24676311 E11.40 continue diabetic control per PCP recommenda tions Diabetic p eripheral neuropathy 703453277 E11.40 check feet daily for wounds infection present seek medical attention immediatel yFollow-up 3 months for diabetic foot care recommend supportive shoe gear daily Onychomyco sis of toenails 145436819 B35.1 Nails 1 through 10 were debrided with sharp mechanical debridemen t without incident. Nails were debrided and greater than 50% length and thickness where needed. [id number] Bernabe Rodriguez DPM [facility] [place] [address] [place] [address] 03/05/2025 11:21:59 03/06/2025 11:39:28 Diabetes mellitus 79176856 E11.40 continue diabetic control per PCP recommenda tions Cerebrovas cular accident 710514421 I63.9 Dystrophia unguium 79478 009 L60.3 Nails 1 through 10 were debrided with sharp mechanical debridemen t without incident. Nails were debrided and greater than 50% length and thickness where needed. Health Concerns Section Related Observation LastModified by Organization Detai ls LastModified Time None Recorded Concern Status LastModified by Organization Details LastModified Time None Recorded Advance Directives Directive None Recorded Payers Insurance Date Sequence Insurance Name Policy Number Policy Joe Covered Member ID Joe Member ID Guarantor Name 03/02/2025 1 [place] Yaya Vazquez Jr [id number] Yaya Vazquez Notes Date Note Type [...] to flush twice daily. Isaac Ruiz MD [address], [place], [address], [place] 08/27/2024 12:13:21 11/06/2024 text/html . Patient is [...] denies any other complaints. Bernabe Rodriguez DPM [address], [place], [address], [place] 11/06/2024 12:41:11 03/05/2025 text/html . Patient is a 64-year-old male diabetic with neuropathy. Patient has a history of stroke. Patient has deformities of bilateral feet to his toes. Patient presents with his in wheelchair. Patient does not have any open wounds or complaints of pain to the feet. Patient and were educated about continuing the offloading the hi areas of pressure to the toe deformities. Patient states he would like his nails cut. Patient denies any other complaints. Bernabe Rodriguez DPM [address], [place], [address], [place] [facility] 03/05/2025 12:42:42
--- OUTSIDE RECORDS SUMMARY | 2025-04-18 14:59 | XMS_ITS | Encounter Summary ---
Author Organization [facility] Address [address] [place] [address] Care Team Providers Care Flower Cheniller Name Role Phone Lisy Olmedo MD Primary Care Provide r Sylvain Daniels MD Primary Care Provider + [phone] None, Physician Primary Care Provider Unavailabl e Sylvain Daniels MD Unavailable [phone] Sylvain Daniels MD Unavailable [phone] Sylvain Daniels MD Unavailable [phone] Sylvain Daniels MD Primary Care Provider + [phone] Kiana Cole MD Primary Care Provider Sean Kyle MD Primary Care Provider [phone] Kiana Cole MD Primary Care Provider Reason for Visit * Reason Onset Date Comments MEDICATION REFILL 12/27/2020 Encounter Details Date Type Department Care Team (Late st Contact Info) Description 12/27/2020 Refill [facility] Medicine [address] [facility] [address] [place] [address] Lisy Olmedo MD [address] [place] [address] MEDICATION REFILL Social History Tobacco Use Types [...] 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 Not [...] Diagnosis Essential hypertension Coronary artery disease involving [place] coronary artery of [place] heart with angina pectoris Type 2 diabetes [...] documented as of this encounter Care Teams Flower Cheniller Relationship Specialty Start Date End Date Lisy Olmedo MD PCP - General 04/20/09 05/09/22 Sylvain Daniels MD PCP - General Family Medicine 05/10/22 02/14/24 None, Physician [address] [place] [address] PCP - General 02/15/24 05/16/24 Sylvain Daniels MD [address] [place] [address] PCP - Attributed-[employer] 05/15/22 10/01/22 Sylvain Daniels MD [address] [place] [address] PCP - Attributed-[employer] [address] 02/12/23 04/01/23 Sylvain Daniels MD [address] [place] [address] PCP - General Family Medicine 05/17/24 05/19/24 Kiana Cole MD [address] [facility] [place] [address] PCP - General Internal Medicine 05/22/24 08/04/24 Sean Kyle MD [address] [place] [address] PCP - General Internal Medicine 08/05/24 09/15/24 Kiana Cole MD [address] [place] [place] [address] PCP - General Internal Medicine 09/16/24 Sylvain Daniels MD Family Medicine 02/15/24 documented as of this encounter
--- OUTSIDE RECORDS SUMMARY | 2025-04-18 15:00 | XMS_ITS | Encounter Summary ---
Author Organization [facility] Address [address] [facility] [place] [address] Care Team Providers Care Galvanizer Name Role Phone Lisy Olmedo MD Primary Care Provide r Sylvain Daniels MD Primary Care Provider + [phone] None, Physician Primary Care Provider Unavailabl e Sylvain Daniels MD Unavailable [phone] Sylvain Daniels MD Unavailable [phone] Sylvain Daniels MD Unavailable [phone] Sylvain Daniels MD Primary Care Provider + [phone] Kiana Cole MD Primary Care Provider Sean Kyle MD Primary Care Provider [phone] Kiana Cole MD Primary Care Provider Reason for Visit * Reason Onset Date Comments MEDICATION REFILL 05/13/2021 Encounter Details Date Type Department Care Team (Late st Contact Info) Description 05/13/2021 Refill [facility] Medicine [address] [facility] [address] [place] [address] Lisy Olmedo MD [address] [place] [address] MEDICATION REFILL Social History Tobacco Use Types [...] 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[employer] Not on [...] documented as of this encounter Care Teams Galvanizer Relationship Specialty Start Date End Date Lisy Olmedo MD PCP - General 04/20/09 05/09/22 Sylvain Daniels MD PCP - General Family Medicine 05/10/22 02/14/24 None, Physician [address] [place] [address] PCP - General 02/15/24 05/16/24 Sylvain Daniels MD [address] [place] [address] PCP - Attributed-[employer] 05/15/22 10/01/22 Sylvain Daniels MD [address] [place] [address] PCP - Attributed-[employer] ST 02/12/23 04/01/23 Sylvain Daniels MD [address] [place] [address] PCP - General Family Medicine 05/17/24 05/19/24 Kiana Cole MD [address] [place] [address] PCP - General Internal Medicine 05/22/24 08/04/24 Sean Kyle MD [address] [place] [address] PCP - General Internal Medicine 08/05/24 09/15/24 Kiana Cole MD [address] [place] [address] PCP - General Internal Medicine 09/16/24 Sylvain Daniels MD Family Medicine 02/15/24 documented as of this encounter
--- OUTSIDE RECORDS SUMMARY | 2025-04-18 15:00 | XMS_ITS | Encounter Summary ---
Author Organization [facility] Health Address [address] [place] [address] Care Team Providers Care Fur Repair Inspector Name Role Phone Lisy Olmedo MD Primary Care Provide r Encounter Details Date Type Department Care Team (Latest Contact Info) Description 01/29/2018 2:26 PM CDT Hospital Encounter [facility] [address] [place] [address] Ruby Valdez MD [facility] [address] [place] [phone] [employer] Social History Tobacco Use [...] Recorded Patient Health Questionnaire-2 Score 0 03/11/2025 [facility] [place] [facility] - Occupational Stress [...] 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 No / Unsure 10/18/2022 9:47 AM RING STAMPER documented as of this encounter Functional Status [...] much Not at all 09/17/2023 1:24 PM RING STAMPER Alice Balbuena SN Feeling tired or having derek le energy Not at all 09/17/2023 1:24 PM RING STAMPER Alice Balbuena SN Poor appetite or overeating Not at all 09/17/2023 1: 24 PM RING STAMPER Alice Balbuena SN Feeling bad about yourself - or that you are a failure or have let yourself or your family down Not at all 09/17/2023 1:24 PM RING STAMPER Alice Moran SN Trouble concentrating on thi ngs, such as reading the newspaper or watching television Not at all 09/17/2023 1:24 PM RING STAMPER Alice Balbuena SN Moving or speaking so slowly that other people could have noticed? Or the opposite - being so fidgety or restless that you have been moving around a lot more than usual. Not at all 09/17/2023 1:24 PM RING STAMPER Alice Balbuena SN Thoughts that you would be b jones off or hurting yourself in some way Not at all 09/17/2023 1:24 PM RING STAMPER Alice Balbuena SN Patient Health Questionnaire -9 Score 0 09/17/2023 1:24 PM RING STAMPER Alice Balbuena SN * Over the last 2 weeks, how often have you been bothered by any of the following problems? Question Answer Date of Assessment Author Feeling nervous, anxious, or on edge 0 02/13 9:12 AM CDT Jaci Buckner MA Not being able to stop or co ntrol worrying 0 03/11/2025 9:12 AM SHIKHAT Jaci Buckner M A Worrying too much about diff erent things 0 03/11/2025 9:12 AM CDT Jaci Buckner M A Trouble relaxing 0 03/11/2025 9:12 AM CDT Jaci Harrison MA Being so restless that it is hard to sit still 0 03/11/2025 9:12 AM SHIKHAT Jaci Buckner M A Becoming easily annoyed or irritable 0 02/13 9:12 AM CDT Jaci Buckner MA Feeling afraid as if somethi ng awful might happen 0 03/11/2025 9:12 AM SHIKHAT Jaci Buckner M A BENJI-7 Total Score 0 03/11/2025 9:12 AM SHIKHAT Jaci Buckner MA documented as of this encounter Plan of Treatment Not on file documented as of this encounter Visit Diagnoses Not on filedocumented in this encounter Additional Health Concerns Infection Onset Date Last Indicated Resolved Time COVID-19 Under Investigation 07/26/2022 07/26/2022 07/26/2022 5:54 PM CDT COVID-19 Under Investigation 04/10/2024 04/10/2024 04/10/2024 2:48 PM CDT documented as of this encounter Care Teams Fur Repair Inspector Relationship Specialty Start Date End Date Lisy Olmedo MD PCP - General 04/20/09 05/09/22 documented as of this encounter
--- OUTSIDE RECORDS SUMMARY | 2025-04-18 15:00 | XMS_ITS | Encounter Summary ---
Author Organization [facility] Address [address] [facility] [place] [address] Care Team Providers Care Stencil Inspector Name Role Phone Lisy Olmedo MD Primary Care Provide r Sylvain Daniels MD Primary Care Provider + [phone] None, Physician Primary Care Provider Unavailabl e Sylvain Daniels MD Unavailable [phone] Sylvain Daniels MD Unavailable [phone] Sylvain Daniels MD Unavailable [phone] Sylvain Daniels MD Primary Care Provider + [phone] Kiana Cole MD Primary Care Provider Sean Kyle MD Primary Care Provider [phone] Kiana Cole MD Primary Care Provider Reason for Visit * Reason Onset Date Comments MEDICATION REFILL 11/19/2021 Encounter Details Date Type Department Care Team (Late st Contact Info) Description 11/19/2021 Refill [facility] Medicine [address] [facility] [address] [place] [address] Lisy Olmedo MD [address] [place] [address] MEDICATION REFILL Social History Tobacco Use Types [...] 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 documented in this encounter Plan of Treatment Not on file documented as of this encounter Visit Diagnoses Diagnosis Erectile dysfunction, unspecified erectile dysfunction type documented in this encounter Additional Health Concerns Infection Onset Date Last Indicated Resolved Time COVID-19 Under Investigation 07/26/2022 07/26/2022 07/26/2022 5:54 PM CDT COVID-19 Under Investigation 04/10/2024 04/10/2024 04/10/2024 2:48 PM CDT documented as of this encounter Care Teams Stencil Inspector Relationship Specialty Start Date End Date Lisy Olmedo MD PCP - General 04/20/09 05/09/22 Sylvain Daniels MD PCP - General Family Medicine 05/10/22 02/14/24 None, Physician [address] [place] [address] PCP - General 02/15/24 05/16/24 Sylvain Daniels MD [address] [place] [address] PCP - Attributed-[employer] 05/15/22 10/01/22 Sylvain Daniels MD [address] [place] [address] PCP - Attributed-[employer] ST 02/12/23 04/01/23 Sylvain Daniels MD [address] [place] [address] PCP - General Family Medicine 05/17/24 05/19/24 Kiana Cole MD [address] [place] [address] PCP - General Internal Medicine 05/22/24 08/04/24 Sean Kyle MD [address] [place] [address] PCP - General Internal Medicine 08/05/24 09/15/24 Kiana Cole MD [address] [place] [address] PCP - General Internal Medicine 09/16/24 Sylvain Daniels MD Family Medicine 02/15/24 documented as of this encounter
--- OUTSIDE RECORDS SUMMARY | 2025-04-18 15:00 | XMS_ITS | Clinical Summary ---
Author Organization [facility] Address [address] [place] [address] Care Team Providers Care Crime Laboratory Analyst Name Role Phone Sean Kyle MD Primary Care Provider [phone] Allergies Active Allergy Reactions Criticality Noted Date [...] Date Confusion 05/25/2024 Near syncope 05/22/2024 Asthma ([facility]) 05/22/2024 Dysphagia following cerebral infarction 03/19/20 24 Cerebrovascular accident ([facility]) 03/12 Staphylococcus aureus infection 02/08/2024 Hyperlipidemia [...] LDL-C. Mika EATON et al. RAFFI. 2013;310(19): 0072-0249 (http://education.Operation Supply Drop.Canva/faq/CBS229) CHOL/HDLC RATIO <5.0 (calc) 5.3High Non HDL [...] needs weight loss desperately and referred to carboy filler asked him to stop naproxen Atherosclerosis of coronary artery 01/23/2018 Overview (05/22/2024): Last Assessment & Plan: without angina needs more aggressive RFM continue aspirin Controlled type 2 diabetes francisco carney without complication, without long-term current use of insulin ([facility]) 09/28/2011 Resolved Problems Problem Noted Date [...] ETOH use prior to stroke [facility] Utilities Answer Date Recorded In the past 12 months has [employer], oil, or water [employer] threatened to shut off services in your [...] any time in the past 12 m [facility], were you homeless or living in a intermediate (including now)? Patient unable to answer 05/23/2024 [...] 2:48 AM CDT Height 193 cm (6' 4) 05/22/2024 4:05 PM CDT Body Mass Index [...] 7.4(H) <5.7 % 05/23/2024 1:29 AM CDT [facility] Comment: ADA GUIDELINES 2010 5.7 TO 6.4% INCREASED RISK OF DIABETES > OR = 6.5% CONSISTENT WITH DIABETES ESTIMATED AVG GLUCOSE 166 mg/dL 05/23/2024 1:29 AM CDT [facility] 05/22/2024 6:25 PM CDT Yaritza Cowart NP LABORATORY Final Result [facility] [address] [place] [address], from Last 3 Months or Most Recently Relevant to Health Maintenance Insurance MEDICARE Advance Directives * Full Code (Latest Code Status on File) Date Activated Date Inactivated Comments 05/22/2024 11:15 PM 05/25/2024 9:20 PM Care Teams Crime Laboratory Analyst Relationship Specialty Start Date End Date Sean Kyle MD [address] [address] PCP - General INTERNAL MEDICINE 05/22/24
--- OUTSIDE RECORDS SUMMARY | 2025-04-18 15:01 | XMS_ITS | CCD ---
Author Name Saroj DAVIS, Dr Amanda escalona Address [address] [place] [address] Phone Organization [facility] Phone Care Team Providers Care Sem Manager Name Role Phone Unavailable Primary Care Provider Unavailabl e Unavailable Chronic Care Management Unavaila ble Summary Purpose DataExchange Insurance Providers Payer name Policy type / Coverage type Covered republican ID Effective Begin Date Effective End Date [place] [id number] Unknown Family history Sister Diagnosis Age At [...] No Inactive Date Active LISINOPRIL angioedema RxNorm: 95844 05/21/2024 No Inactive D ate Active Penicillin [...] disease ICD-10: I11.9 ICD-9: 402.90 07/24/2024 Active senior living (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 ICD-1 0: Z79.4 [...] (2.5 mg base)/3 mL nebulization soln RxNorm: 8924453 Inhale 3 Milliliter(s) Inhalation every 6 hours as needed for shortness of breath 4 11/19/19 25 Inactive albuterol sulfate HFA 90 mcg/actuation aerosol inhaler RxNorm: 7974815 Administer 2 Puff(s) Inhalation every 4 to 6 hours 4 12/20/19 25 Inactive buspirone 5 mg tablet RxNorm: 354139 Take 1 Tablet(s) Oral three times a day 4 10/26/19 25 Inactive Senna Plus 8.6 mg-50 mg tablet RxNorm: 918445 Take 2 Tablet(s) Oral two times a day as needed for constipation 4 07/28/20 24 Inactive multivitamin tablet RxNorm: Take 1 Tablet(s) Oral every day 4 10/20/19 26 Active buspirone 5 mg tablet RxNorm: 263568 Take 1 Tablet(s) Oral two times a day 4 10/16/19 26 Active polyethylene glycol 3350 17 gram/dose oral powder RxNorm: 703765 Use 1 Unit Dose Oral every day Mix 17g (one capful) with 8oz liquid. Hold for loose stools. 4 08/17/20 25 Active ipratropium 0.5 mg-albuterol 3 mg (2.5 mg base)/3 mL nebulization soln RxNorm: 6956559 Administer 3 Milliliter(s) Inhalation every 6 hours as needed for shortness of breath 4 08/22/20 24 Inactive buspirone 5 mg tablet RxNorm: 073468 Take 1 Tablet(s) Oral three times a day 07/23/20 24 Inactive aspirin 81 mg chewable tablet RxNorm: 229493 Take 1 Tablet(s) Feeding Tube / PEG every day 08/13/20 25 Active atorvastatin 40 mg tablet RxNorm: 465329 Take 1 Tablet(s) Feeding Tube / PEG every night at bedtime 08/13/20 25 Active amlodipine 10 mg tablet RxNorm: 195605 Take 1 Tablet(s) Feeding Tube / PEG once daily 08/13/20 25 Active clopidogrel 75 mg tablet RxNorm: 809116 Take 1 Tablet(s) Feeding Tube / PEG once daily 08/13/20 25 Active Pen Needle 31 gauge x 5/16 RxNorm: Take 1 Pen Needle Subcutaneous three times a day 08/13/20 25 Active famotidine 20 mg tablet RxNorm: 241931 Take 1 Tablet(s) Feeding Tube / PEG two times a day 08/13/20 25 Active thiamine HCl (vitamin B1) 100 mg tablet RxNorm: 085117 Take 1 Tablet(s) Feeding Tube / PEG every day 08/13/20 25 Active folic acid 1 mg tablet RxNorm: 021586 Take 1 Tablet(s) Feeding Tube / PEG every day 08/13/20 25 Active multivit-mineral -folic acid 333 mcg-lutein 3 mg-zeaxant 0.67 mg tablet RxNorm: Take 1 Tablet(s) Oral every day 4 No Stop Date Active Lantus Solostar U-100 Insulin 100 unit/mL (3 mL) subcutaneous pen RxNorm: 013394 Administer 15 Unit(s) Subcutaneous every night at bedtime 08/13/20 25 Active loratadine 10 mg tablet RxNorm: 164142 Take 1 Tablet(s) Feeding Tube / PEG every day 08/13/20 25 Active Senna Plus 8.6 mg-50 mg tablet RxNorm: 814861 Take 2 Tablet(s) Feeding Tube / PEG two times a day as needed for constipation 07/29/20 24 Inactive albuterol sulfate HFA 90 mcg/actuation aerosol inhaler RxNorm: 1523058 Administer 2 Puff(s) Inhalation every 4 to 6 hours 4 05/21/20 24 Inactive Medication Administered No Medication Administered data Results Observation Observation Code Item Item Code Result Date Service Location COMPLETE CBC W/ DIFF WBC 67726 WBC 6690-2 6.8 K/ul [facility] [address] [place] [address] 88124 COMPLETE CBC W/ DIFF WBC 55014 RBC 789-8 3.89 M/uL [facility] [address] [place] [address] 73266 COMPLETE CBC W/ DIFF WBC 58782 Hemoglobin 718-7 10.6 g/dL [facility] [address] [place] [address] 68997 COMPLETE CBC W/ DIFF WBC 07844 Hematocrit 4544-3 32.2 % [facility] [address] [place] [address] 18795 COMPLETE CBC W/ DIFF WBC 56267 MCV 787-2 82.9 fL [facility] [address] [place] [address] 39046 COMPLETE CBC W/ DIFF WBC 07098 MCH 785-6 27.3 pg 024 [facility] [address] [place] [address] 57589 COMPLETE CBC W/ DIFF WBC 08024 MCHC 786-4 32.9 g/dL 024 [facility] [address] [place] [address] 83345 COMPLETE CBC W/ DIFF WBC 16754 RDW 788-0 15.5 % 024 [facility] [address] [place] [address] 95005 COMPLETE CBC W/ DIFF WBC 83042 Platelet Count 777-3 303 K/uL 024 [facility] [address] [place] [address] 37212 COMPLETE CBC W/ DIFF WBC 85487 MPV 40212-7 8.0 fL [facility] [address] [place] [address] 19142 COMPLETE CBC W/ DIFF WBC 82793 Neutrophils % 770-8 51.2 % [facility] [address] [place] [address] 51386 COMPLETE CBC W/ DIFF WBC 12312 Lymphocytes % 736-9 39.8 % 08/08/2 024 [facility] [address] [place] [address] COMPLETE CBC W/ DIFF WBC 07119 Monocytes % 5905-5 6.7 % 024 [facility] [address] [place] [address] COMPLETE CBC W/ DIFF WBC 50745 Eosinophils % 713-8 2.1 % 024 [facility] [address] [place] [address] COMPLETE CBC W/ DIFF WBC 39138 Basophils% 706-2 0.2 % 024 [facility] [address] [place] [address] COMPLETE CBC W/ DIFF WBC 08105 Absolute Neutrophil 751-8 3482 /ul 024 [facility] [address] [place] [address] 40837 COMPLETE CBC W/ DIFF WBC 72473 Absolute Lymphocyte 67125-1 2706 /ul 024 [facility] [address] [place] [address] 84085 COMPLETE CBC W/ DIFF WBC 93933 Absolute Monocyte 742-7 456 /ul 024 [facility] [address] [place] [address] 70203 COMPLETE CBC W/ DIFF WBC 46362 Absolute Eosinophil 711-2 143 /ul 024 [facility] [address] [place] [address] 24825 COMPLETE CBC W/ DIFF WBC 83761 Absolute Basophil 704-7 14 /ul 024 [facility] [address] [place] [address] 85020 Direct LDL 25196 LDL-Direct 68114-3 117 mg/dL 024 [facility] [address] [place] [address] 27884 TRIGLYCERIDES 31000 Triglycerides 2571-8 173 mg/dL 024 [facility] [address] [place] [address] 50350 TRIGLYCERIDES 53621 VLDL 55224-8 35 mg/dL 024 [facility] [address] [place] [address] 85343 CHOLESTEROL 21470 Cholesterol 2093-3 177 mg/dL 024 [facility] [address] [place] [address] 30616 CHEM 14 (METABOLIC PANEL) 35851 Glucose 2345-7 138 mg/dL 024 [facility] [address] [place] [address] 47533 CHEM 14 (METABOLIC PANEL) 16056 BUN 3094-0 21 mg/dL 024 [facility] [address] [place] [address] 49302 CHEM 14 (METABOLIC PANEL) 75900 Creatinine 2160-0 0.8 mg/dL 024 [facility] [address] [place] [address] 46546 CHEM 14 (METABOLIC PANEL) 73318 BUN/Creat Ratio 3097-3 25.7 024 [facility] [address] [place] [address] 60260 CHEM 14 (METABOLIC PANEL) 19485 GFR Estimated 44305-2 97 mL/min/1. 73m2 024 [facility] [address] [place] [address] CHEM 14 (METABOLIC PANEL) 38059 Sodium 2951-2 139 mmol/L 024 [facility] [address] [place] [address] 84340 CHEM 14 (METABOLIC PANEL) 46033 Potassium 2823-3 4.0 mmol/L 024 [facility] [address] [place] [address] 87091 CHEM 14 (METABOLIC PANEL) 41595 Chloride 2075-0 98 mmol/L 024 [facility] [address] [place] [address] 23647 CHEM 14 (METABOLIC PANEL) 84817 Total CO2 2028-9 30 mmol/L 024 [facility] [address] [place] [address] 29236 CHEM 14 (METABOLIC PANEL) 65058 Anion Gap 1863-0 15.0 mEq/L 024 [facility] [address] [place] [address] 52163 CHEM 14 (METABOLIC PANEL) 39574 Calculated Serum Osmolality 93136-1 293 mOsm/kg 024 [facility] [address] [place] [address] 85498 CHEM 14 (METABOLIC PANEL) 49999 Albumin 07264-7 3.1 g/dL 024 [facility] [address] [place] [address] 77154 CHEM 14 (METABOLIC PANEL) 87962 Total Protein 2885-2 7.5 g/dL 024 [facility] [address] [place] [address] 25914 CHEM 14 (METABOLIC PANEL) 45958 Globulin 2336-6 4.4 g/dL 024 [facility] [address] [place] [address] 86405 CHEM 14 (METABOLIC PANEL) 71542 Albumin/Globulin Ratio 1759-0 0.7 024 [facility] [address] [place] [address] 91057 CHEM 14 (METABOLIC PANEL) 66027 ALK PHOS 6768-6 66.00 U/L 024 [facility] [address] [place] [address] CHEM 14 (METABOLIC PANEL) 49869 SGOT/AST 1920-8 13 U/L 024 [facility] [address] [place] [address] CHEM 14 (METABOLIC PANEL) 14777 SGPT/ALT 1743-4 19 U/L 024 [facility] [address] [place] [address] CHEM 14 (METABOLIC PANEL) 08707 Total Bilirubin 1975-2 0.3 mg/dL 024 [facility] [address] [place] [address] CHEM 14 (METABOLIC PANEL) 90662 Calcium 21035-3 9.4 mg/dL 024 [facility] [address] [place] [address] CHEM 14 (METABOLIC PANEL) 63960 Corrected Calcium 71490-7 10.3 mg/dL 024 [facility] [address] [place] [address] PTH 41201 PTH 2731-8 21.7 pg/mL 024 [facility] [address] [place] [address] VITAMIN B-12 40516 Vitamin B12 2132-9 609 pg/mL 05/22 024 [facility] [address] [place] [address] 03495 A4P-KCYTQJTGGIECX IN 4548-4 Glyco HGB A1C 05678-7 7.0 % 024 [facility] [address] [place] [address] 77448 Q9Y-OESBSHUVTRCEO IN [facility]8-4 eAG 50044-8 154 mg/dL 024 [facility] [address] [place] [address] HDL - CHOL 91484 HDL 2085-9 30 mg/dL 024 [facility] [address] [place] [address] HDL - CHOL 73250 CHD 25511-0 17 % 024 [facility] [address] [place] [address] TSH 79411 TSH 16487-7 2.540 uIU/mL 024 [facility] [address] [place] [address] Procedures Procedure Codes Date Annual Wellness Visit (Initial Visit) CPT-4: G04 38 07/24/2024 FLU VACC CELL CULT PRSV FREE CPT-4: 33225 07/2024 Most recent A1c = 7.0% and < 8.0% CPT-4: 3051F 07/24/2024 FLUCEL VAX PFS VAC NO PRSV 0.5ML IM CPT-4: 57687 07/24/2024 Admin flu virus vaccine CPT-4: G0008 07/24/20 24 LEVEL OF ACTIVITY ASSESS CPT-4: 1003F 024 PT SCRN TBCO ID NON USER CPT-4: G9903 07/15 Current tobacco non-user CPT-4: 1036F 024 Amnt pain noted; none prsnt CPT-4: 1126F 07/15 MED LIST DOCD IN [facility] CPT-4: 1159F 07/24/2024 RVW MEDS BY RX/DR IN [facility] CPT-4: 116F 2023 Patient Screened for Future Fall Risk CPT-4: 110 0F 07/24/2024 Fall plan of care doc'd CPT-4: 0518F 07/24/20 24 Most recent A1c = 7.0% and < 8.0% CPT-4: 305F 06/24/2024 MED LIST DOCD IN [facility] CPT-4: 1159F 06/24/2024 RVW MEDS BY RX/DR IN [facility] CPT-4: 1160F 2023 Discharge Meds Reconciled w/ Current Med list CP T-4: 1111F 06/24/2024 Amnt pain noted; none prsnt CPT-4: 1126F 06/[address] CPT-4: 1159F 05/21/2024 RVW MEDS BY RX/DR IN [facility] CPT-4: 1160F 2023 Discharge Meds Reconciled w/ Current Med list CP T-4: 1111F 05/21/2024 Amnt pain noted; none prsnt CPT-4: 1126F 04/2024 Screening for clinical depre ssion is negative, follow-up plan not required CPT-4: G8510 05/21/2024 Patient Screened for Future Fall Risk CPT-4: 110 0F 05/21/2024 Fall plan of care doc'd CPT-4: 0518F 05/21/20 24 Cologuard CPT-4: 71733 Unknown N2X-Wificpxgpxeryaq CPT-4: 50787 Unknown Gastroenterology Referral SNOMED CT: 306 [id number] CPT-4: R12 Unknown Vital Signs Date Vital 07/24/2024 Blood Pressure 1: 120/82 Code: 8480-6 BMI: 32.3 Code: 34411-5 Heart Rate 1: 81 bpm Height: 6'4 Code: 8302-2 Respiratory Rate: 16 bpm SpO2: 97% Temperature: 36.1 (C) / 97.0 (F) Weight: 265 lbs Code: 28469-5 06/24/2024 Blood Pressure 1: 134/76 Code: 8480-6 BMI: 34.6 Code: 17837-6 Heart Rate 1: 86 bpm Height: 6'4 Code: 8302-2 Respiratory Rate: 17 bpm SpO2: 94% Temperature: 36.4 (C) / 97.6 (F) Weight: 284 lbs Code: 42216-7 05/21/2024 Blood Pressure 1: 135/82 Code: 8480-6 BMI: 32.3 Code: 75835-7 Heart Rate 1: 84 bpm Height: 6'4 Code: 8302-2 Respiratory Rate: 17 bpm SpO2: 93% Temperature: 35.6 (C) / 96.0 (F) Weight: 265 lbs Code: 37983-8 Reason For Visit Reason For Visit Effective [...] disease)[ICD10: K21.9] Diagnosis: Gastrostomy present[ICD10: Z93.1] Diagnosis: senior living (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[ICD10: Z79.4] Diagnosis: At high risk for falls[ICD10: Z91.81] [facility] [address] [place] [address] CPT-4: G0438 4 (45202) Home or Residence Visit Est Pt - Low Level, 30 mins Diagnosis: Hemiparesis due to recent cerebrovascular accident (CVA)[ICD10: I69.359] Diagnosis: Diabetes mellitus due to underlying condition with diabetic neuropathy, with long-term current use of insulin[ICD10: E08.40] 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] Diagnosis: Diplopia[ICD10: [...] Diagnosis: At high risk for falls[ICD10: Z91.81] [facility] Office [address] [place] [address] CPT-4: 35467 4 (29432) Home or Residence Visit Est Pt - Moderate Level, 40 mins Diagnosis: Syncope[ICD10: R55] Diagnosis: Hemiparesis due to recent cerebrovascular accident (CVA)[ICD10: I69.359] Diagnosis: Diabetes mellitus due to underlying condition with diabetic neuropathy, with long-term current use of insulin[ICD10: E08.40] Diagnosis: senior living (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[ICD10: Z79.4] Diagnosis: Hypertension [...] cancer screening[ICD10: Z12.11] Diagnosis: Paroxysmal cough[ICD10: R05.8] [facility] [address] [place] [address] CPT-4: 14515 4 (21328) Home or Residence Visit 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 On Lantus Z79.4-V58.67 senior living (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: On Lantus 15 [...] placed R05.8-786.2 Paroxysmal cough R26.9-781.2 Gait abnormality: [facility] . On PT progressing J45.909-493.90 Asthma K21.9-530.81 GERD (gastroesophageal reflux disease): On Pepcid 07/24/2024 Appointment: eSan Kyle WPtel: [address] [facility] E034 07/24/2024 Patient Education: Obesity Completed [...] insulin: Stable. Hba1c 7.0. 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 On PT/OT for strengthening, balance, coordination Z12.11-V76.51 Colon cancer screening: Fuentes R05.8-786.2 Paroxysmal cough: poss due to poor pharyngeal reflex, GERD . Try Protonix. Oropharyngeal suctioning. Order Suction Aspirator 06/24/2024 Appointment: Sean Kyle WPtel: [address] [place], [place] [address] E034 06/24/2024 Patient Education: Obesity Completed 06/24/2024 Patient Education: Patient Medication Summary Completed 06/24/2024 Care Plan: Cologuard Ordered 06/15 Appointment: Oscar Hoyt WPtel: [address] [facility] [address] [id number] [place] Phone Call 06/20/2024 Appointment: Mony Moseley WPtel: [address] [id number] [place] Phone Call 06/06/2024 [facility]ment[facility] 05/26/2024 Visit Plan: I69.359-438.20 Hemiparesis [...] late effect of cerebrovascular accident (CVA) Z79.4- 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 I69.322-438.13 Dysarthria as [...] findings 05/21/2024 Appointment: [facility] 05/21/2024 Patient Education: Patient Medication Summary Completed 05/21/2024 Patient Education: Obesity Completed 05/21/2024 Referral: [employer] WPtel: [address] [place], [place] [address] Referral faxed to: Agency Name: [employer] Agency Address: [address] [address] Agency Phone #: [phone] Agency Agency will contact the patient to schedule Order Faxed Referral: Pending Medical Records Information [facility] requires Consent when requesting records, there i currently no consent on file for the patient can we get consent uploaded to [facility] so we can finish the request. thank you On Hold Awaiting Documentation Referral: [facility] WPtel: [phone] [facility] Ruiz [address] [facility], [address], [place] [address] Reprocess Referral: Provider Ghada Hurtado WPtel: [address] [place] [address] 05/22/2024 order faxed to agency. Not Taken Up Referral: Residential home health WPtel: [facility] [facility] [place] Referral ACT - [facility] Referral: Pending Hedis Manager Referral Information lvm , provided the above agency information. Instructed to call O&R department if they do not hear back from agency withing 7-10 days.05/22/24 no answer, lvm to cb Spoke with office HVS Referral faxed to:[facility] Agency Name: _[facility] Agency Address:_ [address], [place] [address] Agency Phone #:_ Agency _ Agency will contact the patient to schedule appointment. Order Faxed Referral: Sean Kyle WPtel: [address] [facility] [address] [facility] [place] Agency contacted, confirmed they're accepting new patients. They will run insurance once order is received Referral faxed to: Agency Name: [facility] Agency Address: [address] , [address], [place] [address] Agency Phone #:[phone] Agency Agency will ship to patient. pt has referral info Order Faxed Referral: Residential home health WPtel: [address] [id number] [place] Referral ACT - HH Cert Referral: Madiha Hurtado WPtel: [address] [facility] Notes & referral faxed to [facility] [phone] Order Faxed Referral: Pending Incontinence Supplies Order Information called and spoke to Nanette patient ANAYELIA an advised contact number given Order Faxed Referral: Sean Kyle WPtel: [address] [facility] 06-24-2024. Called pt. spoke with Jenn [...] all available medical records at my disposal. I69.670-438.20 Hemiparesis due to recent cerebrovascular accident (CVA): Has Rt sided weakness. On PT E08.40-249.60 Diabetes mellitus due to underlying condition with diabetic neuropathy, with long-term current use of insulin: Stable Hba1c 7.0. 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 On PT progressing J45.909-493.90 Asthma [...] insulin: Stable. Hba1c 7.0. 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
--- OUTSIDE RECORDS SUMMARY | 2025-04-18 15:01 | XMS_ITS | CCD ---
Author Name Saroj DAVIS, Dr Amanda escalona Address [address] [facility] [address] [place] [address] Phone [facility] Phone Care Team Providers Care Barrel Endshake Adjuster Name Role Phone Unavailable Primary Care Provider Unavailabl e Unavailable Chronic Care Management Unavaila ble Summary Purpose DataExchange Insurance Providers Payer name Policy type / Coverage type Covered democrat ID Effective Begin Date Effective End Date [place] [id number] Unknown Family history Sister Diagnosis Age At [...] No Inactive Date Active LISINOPRIL angioedema RxNorm: 33402 05/21/2024 No Inactive D ate Active Penicillin [...] disease ICD-10: I11.9 ICD-9: 402.90 07/24/2024 Active residential (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 ICD-1 0: Z79.4 [...] (2.5 mg base)/3 mL nebulization soln RxNorm: 9210388 Inhale 3 Milliliter(s) Inhalation every 6 hours as needed for shortness of breath 4 11/19/19 25 Inactive albuterol sulfate HFA 90 mcg/actuation aerosol inhaler RxNorm: 3336971 Administer 2 Puff(s) Inhalation every 4 to 6 hours 4 12/20/19 25 Inactive buspirone 5 mg tablet RxNorm: 451053 Take 1 Tablet(s) Oral three times a day 4 10/26/19 25 Inactive Senna Plus 8.6 mg-50 mg tablet RxNorm: 124696 Take 2 Tablet(s) Oral two times a day as needed for constipation 4 07/28/20 24 Inactive multivitamin tablet RxNorm: Take 1 Tablet(s) Oral every day 4 10/20/19 26 Active buspirone 5 mg tablet RxNorm: 512918 Take 1 Tablet(s) Oral two times a day 4 10/16/19 26 Active polyethylene glycol 3350 17 gram/dose oral powder RxNorm: 206204 Use 1 Unit Dose Oral every day Mix 17g (one capful) with 8oz liquid. Hold for loose stools. 4 08/17/20 25 Active ipratropium 0.5 mg-albuterol 3 mg (2.5 mg base)/3 mL nebulization soln RxNorm: 3869597 Administer 3 Milliliter(s) Inhalation every 6 hours as needed for shortness of breath 4 08/22/20 24 Inactive buspirone 5 mg tablet RxNorm: 504509 Take 1 Tablet(s) Oral three times a day 07/23/20 24 Inactive aspirin 81 mg chewable tablet RxNorm: 670627 Take 1 Tablet(s) Feeding Tube / PEG every day 08/13/20 25 Active atorvastatin 40 mg tablet RxNorm: 025439 Take 1 Tablet(s) Feeding Tube / PEG every night at bedtime 08/13/20 25 Active amlodipine 10 mg tablet RxNorm: 403208 Take 1 Tablet(s) Feeding Tube / PEG once daily 08/13/20 25 Active clopidogrel 75 mg tablet RxNorm: 687848 Take 1 Tablet(s) Feeding Tube / PEG once daily 08/13/20 25 Active Pen Needle 31 gauge x 5/16 RxNorm: Take 1 Pen Needle Subcutaneous three times a day 08/13/20 25 Active famotidine 20 mg tablet RxNorm: 533104 Take 1 Tablet(s) Feeding Tube / PEG two times a day 08/13/20 25 Active thiamine HCl (vitamin B1) 100 mg tablet RxNorm: 682728 Take 1 Tablet(s) Feeding Tube / PEG every day 08/13/20 25 Active folic acid 1 mg tablet RxNorm: 754151 Take 1 Tablet(s) Feeding Tube / PEG every day 08/13/20 25 Active multivit-mineral -folic acid 333 mcg-lutein 3 mg-zeaxant 0.67 mg tablet RxNorm: Take 1 Tablet(s) Oral every day 4 No Stop Date Active Lantus Solostar U-100 Insulin 100 unit/mL (3 mL) subcutaneous pen RxNorm: 564517 Administer 15 Unit(s) Subcutaneous every night at bedtime 08/13/20 25 Active loratadine 10 mg tablet RxNorm: 757567 Take 1 Tablet(s) Feeding Tube / PEG every day 08/13/20 25 Active Senna Plus 8.6 mg-50 mg tablet RxNorm: 214641 Take 2 Tablet(s) Feeding Tube / PEG two times a day as needed for constipation 07/29/20 24 Inactive albuterol sulfate HFA 90 mcg/actuation aerosol inhaler RxNorm: 0353524 Administer 2 Puff(s) Inhalation every 4 to 6 hours 4 05/21/20 24 Inactive Medication Administered No Medication Administered data Results Observation Observation Code Item Item Code Result Date Service Location [facility] 24106 TSH 29873-2 2.540 uIU/mL 024 [facility] [address] [place] [address] 25545 [id number] [place] 4548-4 Glyco HGB A1C 26443-7 7.0 % 024 [facility] [address] [place] [address] [id number] [place] 4548-4 eAG 37479-0 154 mg/dL 024 [facility] [address] [place] [address] 98805 VITAMIN B-12 24300 Vitamin B12 2132-9 609 pg/mL 05/22 024 [facility] [address] [place] [address] 12158 PTH 02981 PTH 2731-8 21.7 pg/mL 024 [facility] [address] [place] [address] CHEM 14 (METABOLIC PANEL) 48997 Glucose 2345-7 138 mg/dL 024 [facility] [address] [place] [address] 83034 CHEM 14 (METABOLIC PANEL) 52414 BUN 3094-0 21 mg/dL 024 [facility] [address] [place] [address] 68263 CHEM 14 (METABOLIC PANEL) 81710 Creatinine 2160-0 0.8 mg/dL 024 [facility] [address] [place] [address] 34746 CHEM 14 (METABOLIC PANEL) 00153 BUN/Creat Ratio 3097-3 25.7 024 [facility] [address] [place] [address] 26191 CHEM 14 (METABOLIC PANEL) 52389 GFR Estimated 13172-2 97 mL/min/1. 73m2 024 [facility] [address] [place] [address] 09412 CHEM 14 (METABOLIC PANEL) 50183 Sodium 2951-2 139 mmol/L 024 [facility] [address] [place] [address] 95190 CHEM 14 (METABOLIC PANEL) 24937 Potassium 2823-3 4.0 mmol/L 024 [facility] [address] [place] [address] 56553 CHEM 14 (METABOLIC PANEL) 24905 Chloride 2075-0 98 mmol/L 024 [facility] [address] [place] [address] 91640 CHEM 14 (METABOLIC PANEL) 40607 Total CO2 2028-9 30 mmol/L 024 [facility] [address] [place] [address] 53540 CHEM 14 (METABOLIC PANEL) 37658 Anion Gap 1863-0 15.0 mEq/L 024 [facility] [address] [place] [address] 97489 CHEM 14 (METABOLIC PANEL) 62050 Calculated Serum Osmolality 76001-3 293 mOsm/kg 024 [facility] [address] [place] [address] 71765 CHEM 14 (METABOLIC PANEL) 10908 Albumin 32743-4 3.1 g/dL 024 [facility] [address] [place] [address] 55927 CHEM 14 (METABOLIC PANEL) 00135 Total Protein 2885-2 7.5 g/dL 024 [facility] [address] [place] [address] 02312 CHEM 14 (METABOLIC PANEL) 76519 Globulin 2336-6 4.4 g/dL 024 [facility] [address] [place] [address] 43689 CHEM 14 (METABOLIC PANEL) 28573 Albumin/Globulin Ratio 1759-0 0.7 024 [facility] [address] [place] [address] 68028 CHEM 14 (METABOLIC PANEL) 68641 ALK PHOS 6768-6 66.00 U/L 024 [facility] [address] [place] [address] 36881 CHEM 14 (METABOLIC PANEL) 88085 SGOT/AST 1920-8 13 U/L 024 [facility] [address] [place] [address] 24173 CHEM 14 (METABOLIC PANEL) 75321 SGPT/ALT 1743-4 19 U/L 024 [facility] [address] [place] [address] 94005 CHEM 14 (METABOLIC PANEL) 92791 Total Bilirubin 1975-2 0.3 mg/dL 024 [facility] [address] [place] [address] 96139 CHEM 14 (METABOLIC PANEL) 93469 Calcium 06484-4 9.4 mg/dL 024 [facility] [address] [place] [address] CHEM 14 (METABOLIC PANEL) 56380 Corrected Calcium 68946-8 10.3 mg/dL 024 [facility] [address] [place] [address] CHOLESTEROL 25654 Cholesterol 2093-3 177 mg/dL 024 [facility] [address] [place] [address] TRIGLYCERIDES 83656 Triglycerides 2571-8 173 mg/dL 024 [facility] [address] [place] [address] TRIGLYCERIDES 91690 VLDL 26379-0 35 mg/dL 024 [facility] [address] [place] [address] Direct LDL 25034 LDL-Direct 62725-9 117 mg/dL 024 [facility] [address] [place] [address] 69370 COMPLETE CBC W/ DIFF WBC 45832 WBC 6690-2 6.8 K/ul 024 [facility] [address] [place] [address] 32618 COMPLETE CBC W/ DIFF WBC 01910 RBC 789-8 3.89 M/uL 024 [facility] [address] [place] [address] 43110 COMPLETE CBC W/ DIFF WBC 49422 Hemoglobin 718-7 10.6 g/dL 024 [facility] [address] [place] [address] 98135 COMPLETE CBC W/ DIFF WBC 78146 Hematocrit 4544-3 32.2 % 024 [facility] [address] [place] [address] 51933 COMPLETE CBC W/ DIFF WBC 85272 MCV 787-2 82.9 fL 024 [facility] [address] [place] [address] 77778 COMPLETE CBC W/ DIFF WBC 57747 MCH 785-6 27.3 pg 024 [facility] [address] [place] [address] 62151 COMPLETE CBC W/ DIFF WBC 13011 MCHC 786-4 32.9 g/dL 024 [facility] [address] [place] [address] 95520 COMPLETE CBC W/ DIFF WBC 89282 RDW 788-0 15.5 % 024 [facility] [address] [place] [address] COMPLETE CBC W/ DIFF WBC 23445 Platelet Count 777-3 303 K/uL 024 [facility] [address] [place] [address] COMPLETE CBC W/ DIFF WBC 42350 MPV 71403-5 8.0 fL 024 [facility] [address] [place] [address] COMPLETE CBC W/ DIFF WBC 59065 Neutrophils % 770-8 51.2 % 024 [facility] [address] [place] [address] COMPLETE CBC W/ DIFF WBC 80548 Lymphocytes % 736-9 39.8 % 024 [facility] [address] [place] [address] 67500 COMPLETE CBC W/ DIFF WBC 30955 Monocytes % 5905-5 6.7 % 024 [facility] [address] [place] [address] 72350 COMPLETE CBC W/ DIFF WBC 32947 Eosinophils % 713-8 2.1 % 024 [facility] [address] [place] [address] 12647 COMPLETE CBC W/ DIFF WBC 85204 Basophils% 706-2 0.2 % 024 [facility] [address] [place] [address] 85204 COMPLETE CBC W/ DIFF WBC 05458 Absolute Neutrophil 751-8 3482 /ul 024 [facility] [address] [place] [address] 79869 COMPLETE CBC W/ DIFF WBC 17236 Absolute Lymphocyte 23257-2 2706 /ul 024 [facility] [address] [place] [address] 50954 COMPLETE CBC W/ DIFF WBC 67243 Absolute Monocyte 742-7 456 /ul 024 [facility] [address] [place] [address] 92109 COMPLETE CBC W/ DIFF WBC 77543 Absolute Eosinophil 711-2 143 /ul 024 [facility] [address] [place] [address] 07803 COMPLETE CBC W/ DIFF WBC 17178 Absolute Basophil 704-7 14 /ul 024 [facility] [address] [place] [address] 76771 HDL - CHOL 92723 HDL 2085-9 30 mg/dL 024 [facility] [address] [place] [address] 06203 HDL - CHOL 37207 CHD 95595-9 17 % 024 [facility] [address] [place] [address] 19917 Procedures Procedure Codes Date Annual Wellness Visit (Initial Visit) CPT-4: G04 38 07/24/2024 FLU VACC CELL CULT PRSV FREE CPT-4: 21583 07/2024 Most recent A1c = 7.0% and < 8.0% CPT-4: 3051F 07/24/2024 FLUCEL VAX PFS VAC NO PRSV 0.5ML IM CPT-4: 21439 07/24/2024 Admin flu virus vaccine CPT-4: G0008 07/24/20 24 LEVEL OF ACTIVITY ASSESS CPT-4: 1003F 024 PT SCRN TBCO ID NON USER CPT-4: G9903 07/15 Current tobacco non-user CPT-4: 1036F 024 Amnt pain noted; none prsnt CPT-4: 1126F 07/15 MED LIST DOCD IN [facility] CPT-4: 1159F 07/24/2024 RVW MEDS BY RX/DR IN [facility] CPT-4: 116F 2023 Patient Screened for Future Fall Risk CPT-4: 110 0F 07/24/2024 Fall plan of care doc'd CPT-4: 0518F 07/24/20 24 Most recent A1c = 7.0% and < 8.0% CPT-4: 305F 06/24/2024 MED LIST DOCD IN [facility] CPT-4: 1159F 06/24/2024 RVW MEDS BY RX/DR IN [facility] CPT-4: 1160F 2023 Discharge Meds Reconciled w/ Current Med list CP T-4: 1111F 06/24/2024 Amnt pain noted; none prsnt CPT-4: 1126F 06/[address] CPT-4: 1159F 05/21/2024 RVW MEDS BY RX/DR IN [facility] CPT-4: 1160F 2023 Discharge Meds Reconciled w/ Current Med list CP T-4: 1111F 05/21/2024 Amnt pain noted; none prsnt CPT-4: 1126F 04/2024 Screening for clinical depre ssion is negative, follow-up plan not required CPT-4: G8510 05/21/2024 Patient Screened for Future Fall Risk CPT-4: 110 0F 05/21/2024 Fall plan of care doc'd CPT-4: 0518F 05/21/20 24 Cologuard CPT-4: 41655 Unknown [id number]-[id number] CPT-4: 56289 Unknown Gastroenterology Referral SNOMED CT: [id number] CPT-4: R12 Unknown Vital Signs Date Vital 07/24/2024 Blood Pressure 1: 120/82 Code: 8480-6 BMI: 32.3 Code: 23579-2 Heart Rate 1: 81 bpm Height: 6'4 Code: 8302-2 Respiratory Rate: 16 bpm SpO2: 97% Temperature: 36.1 (C) / 97.0 (F) Weight: 265 lbs Code: 16568-0 06/24/2024 Blood Pressure 1: 134/76 Code: 8480-6 BMI: 34.6 Code: 06751-6 Heart Rate 1: 86 bpm Height: 6'4 Code: 8302-2 Respiratory Rate: 17 bpm SpO2: 94% Temperature: 36.4 (C) / 97.6 (F) Weight: 284 lbs Code: 08903-0 05/21/2024 Blood Pressure 1: 135/82 Code: 8480-6 BMI: 32.3 Code: 74243-5 Heart Rate 1: 84 bpm Height: 6'4 Code: 8302-2 Respiratory Rate: 17 bpm SpO2: 93% Temperature: 35.6 (C) / 96.0 (F) Weight: 265 lbs Code: 25444-7 Reason For Visit Reason For Visit Effective [...] disease)[ICD10: K21.9] Diagnosis: Gastrostomy present[ICD10: Z93.1] Diagnosis: residential (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[ICD10: Z79.4] Diagnosis: At high risk for falls[ICD10: Z91.81] [facility] Office [address] [place] [address] CPT-4: G0438 4 (88395) Home or Residence Visit Est Pt - Low Level, 30 mins Diagnosis: Hemiparesis due to recent cerebrovascular accident (CVA)[ICD10: I69.359] Diagnosis: Diabetes mellitus due to underlying condition with diabetic neuropathy, with long-term current use of insulin[ICD10: E08.40] 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] Diagnosis: Diplopia[ICD10: [...] Diagnosis: At high risk for falls[ICD10: Z91.81] [facility] [address] [place] [address] CPT-4: 82195 4 (73447) Home or Residence Visit Est Pt - Moderate Level, 40 mins Diagnosis: Syncope[ICD10: R55] Diagnosis: Hemiparesis due to recent cerebrovascular accident (CVA)[ICD10: I69.359] Diagnosis: Diabetes mellitus due to underlying condition with diabetic neuropathy, with long-term current use of insulin[ICD10: E08.40] Diagnosis: residential (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[ICD10: Z79.4] Diagnosis: Hypertension [...] cancer screening[ICD10: Z12.11] Diagnosis: Paroxysmal cough[ICD10: R05.8] [facility] [address] [place] [address] CPT-4: 17607 4 (34963) Home or Residence Visit HORTICULTURAL AGENT - Moderate Level, 60 mins Diagnosis: Hemiparesis due to recent cerebrovascular accident (CVA)[ICD10: I69.359] Diagnosis: Gastrostomy present[ICD10: Z93.1] Diagnosis: Diabetes mellitus due to underlying condition with diabetic neuropathy, with long-term current use of insulin[ICD10: E08.40] Diagnosis: Hypertension with heart disease[ICD10: I11.9] Diagnosis: Dysphagia as late effect of cerebrovascular accident (CVA)[ICD10: I69.391] 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 On Lantus Z79.4-V58.67 residential (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: On Lantus 15 [...] placed R05.8-786.2 Paroxysmal cough R26.9-781.2 Gait abnormality: [facility] . On PT progressing J45.909-493.90 Asthma K21.9-530.81 [...] Stable. Hba1c 7.0. 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 On PT/OT for strengthening, balance, coordination Z12.11-V76.51 Colon cancer screening: Fuentes R05.8-786.2 Paroxysmal cough: poss due to poor pharyngeal reflex, GERD . Try Protonix. Oropharyngeal suctioning. Order Suction Aspirator 06/24/2024 Appointment: Sean Kyle WPtel: [address] [place], [place] [id number] E034 06/24/2024 Patient Education: Obesity Completed 06/24/2024 Patient Education: Patient Medication Summary Completed 06/24/2024 Care Plan: Cologuard Ordered 06/15 Appointment: Oscar Hoyt WPtel: [address] [facility] [id number] [place] Phone Call 06/20/2024 Appointment: Mony Moseley WPtel: [address] [id number] [place] Phone Call 06/06/2024 [facility] [facility] 05/26/2024 Visit Plan: I69.359-438.20 [...] effect of cerebrovascular accident (CVA) Z79.4- 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 I69.322-438.13 Dysarthria as [...] findings 05/21/2024 [facility]ment: [facility] [facility] 05/21/2024 Patient Education: Patient Medication Summary Completed 05/21/2024 Patient Education: Obesity Completed 05/21/2024 Referral: [facility] WPtel: [address] [place], [place] [id number] Referral faxed to: Agency Name: [facility] Agency Address: [address] [address] Agency Phone #: [phone] Agency Agency will contact the patient to schedule Order Faxed Referral: Pending Medical Records Information [facility] requires Consent when requesting records, there i currently no consent on file for the patient can we get consent uploaded to [facility] so we can finish the request. thank you On Hold Awaiting Documentation Referral: [facility] WPtel: [id number] [facility]- [address] Ruiz [address] [facility], [address], [place] [address] Reprocess Referral: Provider Ghada Hurtado WPtel: [address] [place] [address] 05/22/2024 order faxed to agency. Not Taken Up Referral: Residential home health WPtel: [facility] [id number] [place] Referral ACT - [facility] Referral: Pending Lead Man [employer] Referral Information lvm , provided the above agency information. Instructed to call O&R department if they do not hear back from agency withing 7-10 days.05/22/24 no answer, lvm to cb Spoke with office [facility]VS Referral faxed to:[facility] Agency Name: _[employer] [facility] Agency Address:_ [address], [place] [address] Agency Phone #:_ Agency _ Agency will contact the patient to schedule appointment. Order Faxed Referral: Sean Kyle WPtel: [address] [facility] [address] [facility] [place] Agency contacted, confirmed they're accepting new patients. They will run insurance once order is received Referral faxed to: Agency Name: [facility] Agency Address: [address] , [address], [place] [address] Agency Phone #:[phone] Agency Agency will ship to patient. pt has referral info Order Faxed Referral: Residential home health WPtel: [address] [id number] [place] Referral ACT - HH Cert Referral: Madiha Hurtado WPtel: [address] [facility] Notes & referral faxed to [facility] [phone] Order Faxed Referral: Pending Incontinence Supplies Order [...] all available medical records at my disposal. I69.069-438.20 Hemiparesis due to recent cerebrovascular accident (CVA): Has Rt sided weakness. On PT E08.40-249.60 Diabetes mellitus due to underlying condition with diabetic neuropathy, with long-term current use of insulin: Stable Hba1c 7.0. On Lantus Z79.4-V58.67 residential (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: On Lantus 15 [...] placed R05.8-786.2 Paroxysmal cough R26.9-781.2 Gait abnormality: [facility] . On PT progressing J45.909-493.90 Asthma K21.9-530.81 [...] Stable. Hba1c 7.0. 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
--- OUTSIDE RECORDS SUMMARY | 2025-04-18 15:01 | XMS_ITS | Clinical Summary ---
Author Organization [facility] Address [address] [address] Care Team Providers Care Windows Admin Name Role Phone Sylvain Daniels MD Unavailable [phone] Kiana Cole MD Primary Care Provider Source Comments [facility],non-owned Affiliates and Associated Physician Practices is amultiple site organization consisting of ambulatory clinics and hospital sitesin [place], [place], [place]. This disclosure is being madepursuant to the Care Everywhere program and may not contain all information available regarding this patient. Last updated 18.[facility] Allergies Active Allergy Reactions Criticality Noted Date Comments Lisinopril Angioedema High 02/22/2018 Lisinopril Other,Urticaria Medium 02/15/2024 Hives Penicillin V Rash Medium 09/28/2011 Penicillins Swelling,Unknown 01/24/2018 eyes swelled shut 50 years ago Penicillins Other,Urticaria Medium 02/15/2024 Hives Medications * Be aware that medications may not be up to date on this document. Alwaysverify current medications with the patient. albuterol (Proventil;Catracho tolin) (2.5 MG/3ML) 0.083% nebulizer solution Inhale 2.5 (two and one-half) mg by mouth every 4 hours as needed for Shortness of Breath or Wheezing 02/15/20 24 Active senna-docusate (Senokot-S) 8.6-50 MG tablet 2 (two) tablets by Enteral Tube route 2 times daily 02/15/20 24 Active multiple vitamins with minerals tablet 1 (one) tablet by Enteral Tube route once daily 02/16/20 24 Active acetaminophen (Tylenol) 325 MG tablet 2 (two) tablets by Per G Tube route every 6 hours as needed 03/12/20 24 Active albuterol-ipra tropium (Duo-Neb) 0.5-2.5 (3) MG/3ML nebulizer solutionIndica tions:Asthma Inhale 3 mL by mouth every 6 hours Reasons: Asthma 200 mL 5 09/17/20 24 Active amLODIPine (Norvasc) 10 MG tablet 1 (one) tablet by Enteral Tube route once daily 90 tablet 3 09/17/20 24 Active aspirin (Aspirin) 81 MG chew tablet 1 (one) tablet by Enteral Tube route once daily 90 tablet 3 09/17/20 24 Active atorvastatin (Lipitor) 40 MG tablet 1 (one) tablet by Enteral Tube route at bedtime 90 tablet 3 09/17/20 24 Active clopidogrel (plaVIX) 75 MG tablet 1 (one) tablet by Enteral Tube route once daily 90 tablet 3 09/17/20 24 Active famotidine (Pepcid) 20 MG tablet 1 (one) tablet by Enteral Tube route 2 times daily 180 tablet 3 09/17/20 24 Active folic acid (Folvite) 1 MG tablet 1 (one) tablet by Enteral Tube route once daily 90 tablet 3 09/17/20 24 Active busPIRone (Buspar) 5 MG tablet 1 (one) tablet by Per G Tube route 3 times daily Taking bid 180 tablet 3 09/17/20 24 Active Additional Information Patient taking differently:5 mg Per G Tube2 TIMES DAILY, Taking bid in Am and PM, Reported on 03/11/2025 insulin glargine (Lantus/Semgle e) 100 units/mL pen Inject 11 (eleven) Units subcutaneously at bedtime 15 mL 3 09/17/20 24 Active Additional Information Patient taking differently: 4 UnitsSubcutaneous AT BEDTIME, Reported on 03/11/2025 loratadine (Claritin) 10 MG tablet 1 (one) tablet by Per G Tube route once daily 90 tablet 3 09/17/20 Active ondansetron, disintegrating , (Zofran ODT) 4 MG tablet Take 1 (one) tablet by mouth as needed Active ketoconazole (Nizoral) 2 % cream Apply to affected area once daily Active guaiFENesin ER 12hr (Mucinex) 600 MG tablet Take 1 (one) tablet by mouth 2 times daily Active polyethylene glycol 3350 (Miralax) 17 g packet Take 17 (seventeen) g by mouth once daily Activ e Active Problems Problem Noted Date Diagnosed Date Type 2 diabetes mellitus wit h diabetic polyneuropathy, with long-term current use of insulin 03/11/2025 Disorder of globe 11/05/2024 Difficulty eating 08/26/2024 PVC (premature ventricular contraction) 08/12/20 24 Assessment & Plan (08/12/2024 11:02 AM CDT): Nonsustained VT, asx. I offered bB for suppression. Sister concerned about polypharmacy which I echo. Observe. Diplopia 07/24/2024 Hypertension with heart disease 07/24/2024 Hemiparesis due to recent cerebrovascular accide nt (CVA) 07/24/2024 Haemophilus influenza type B vaccination adminis tered 07/24/2024 Dyslipidemia 07/24/2024 Dysarthria as late effect [...] with long-term current use of insulin 05/21/2024 FCI (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 05/21/2024 GERD (gastroesophageal reflux disease) Gait abnormality 05/21/2024 MONTY (obstructive sleep apnea) 05/21/2024 Urinary incontinence 05/21/2024 Obesity, unspecified 05/21/2024 Dysphagia following cerebral infarction 03/19/20 24 Impaired cognition 03/19/2024 Cerebrovascular accident 03/12/2024 Problem with highly complex treatment regime 12/2023 Staphylococcus aureus infection 02/08/2024 Altered mental status, unspe cified altered mental status type 01/23/2024 Hypoxia 01/23/2024 Aphasia following cerebral infarction 10/15/2023 Acute hypoxemic respiratory failure 07/26/2022 Hyperlipidemia 08/05/2020 [...] LDL-C. Mika SS et al. RAFFI. 2013;310(19): 7818-2080 (http://education.[employer].Compute/faq/BEP327) CHOL/HDLC RATIO <5.0 (calc) 5.3High Non HDL [...] needs weight loss desperately and referred to coordinate measuring machine operator asked him to stop naproxen Atherosclerosis of coronary artery 01/23/2018 Overview (10/28/2024): Last Assessment & Plan: without angina needs more aggressive RFM continue aspirin Controlled type 2 diabetes m ellitus without complication, without long-term current use of insulin 09/28/2011 Asthma Resolved Problems Problem Noted Date Diagnosed Date Resolved Date Gastrostomy present 07/24/2024 03/11/20 25 Morbid obesity with BMI of 40.0-44.9, adult 08/05/2020 09/17/2024 Wound of sternal region 02/23/201807/16 Superficial postoperative wound infection 02/23/2018 08/05/2020 Overview (02/23/2018): sternum Abnormal stress test 11/12/2017 020 Obesity (BMI 30-39.9) 04/24/20122019 Encounters Date Type Department Care Team Description 04/07/2025 Nurse Triage [facility] [address] [place] [phone] Kiana Cole MD Question 03/11/2025 8:40 AM CDT Office Visit [facility] [address] [place] [phone] Kiana Cole MD Medicare annual wellness visit, subsequent (Primary Dx); Essential hypertension; Coronary artery disease involving [place] heart without angina pectoris, unspecified vessel or lesion type; S/P CABG x 3; Cerebrovascular accident (CVA), unspecified mechanism (HCC); Hemiparesis due to recent cerebrovascular accident (CVA) (HCC); Diplopia; Type 2 diabetes mellitus with diabetic polyneuropathy, with long-term current use of insulin (HCC) 03/11/2025 Travel 01/26/2025 Travel 01/21/2025 Nurse Triage [address], [address] [place] [address] Kiana Cole MD Order from [...] Recorded Patient Health Questionnaire-2 Score 0 03/11/2025 [facility] - [...] place to sleep or slept in a detention (including now)? 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 Not on file Not on file Last Filed Vital Signs Vital Sign Reading Time Taken Comments Blood Pressure 110/76 03/11/2025 9:11 AM CDT Pulse 77 03/11/2025 9:11 AM CDT Temperature 36.7 C (98 F) 03/11/2025 9:11 AM CDT Respiratory Rate 10 08/29/2024 8:44 AM VISUAL SUPERVISOR Oxygen Saturation 95% 03/11/2025 9:11 AM CDT Inhaled Oxygen Concentration 21% 02/15/2024 3 :17 PM CDT Weight 113.4 kg (250 lb) 03/11/2025 9:11 AM CDT Height 193 cm (6' 4) 03/11/2025 9:11 AM CDT Body Mass Index 30.43 03/11/2025 9:11 AM CDT Plan of Treatment Health Maintenance Due Date Last Done Comments COLOGUARD (AGES 45-75) - COLON CA SCREENING 1960 CT COLONOGRAPHY - COLON CA SCREENING 1960 FIT - COLON CA SCREENING 1960 FLEX SIG - COLON CA SCREENING 1960 ZOSTER VACCINE (1 of 2) 2008 DTAP/TDAP/TD VACCINES (2 - Td or Tdap) 10/15/2017 10/15/2007 Respiratory Syncytial Virus (RSV) Vaccine Pt: or over 60 yrs (1 - Risk 60-74 years 1-dose series) 2018 PNEUMOCOCCAL VACCINE 50+ (2 of 2 - PCV) 11/05/2019 11/05/2018, 02/29/2012 AAA SCREENING 2023 COVID-19 VACCINE ( season) 2024 09/17/2023, 09/17/2023, 03/31/2022, Additional history exists DIABETES - URINE PROTEIN SCREENING 10/15/2024 07/23/2020, 01/20/2019, 11/19/2015 DIABETES-SERUM CREATININE 06/04/20252023, 06/03/2024, 06/02/2024, Additional history exists INFLUENZA VACCINE (#1) 2025 , 06/29/2019, 09/03/2018, Additional history exists DIABETES-HGB A1C 09/11/2025 03/11/2025, 01/2024, 05/22/2024, Additional history exists DIABETES-FOOT EXAM WITH MONOFILAMENT 09/17/2025 09/17/2024, 09/17/2023, 05/10/2022, Additional history exists MEDICARE AWV 12 MONTHS 03/11/2026 03/11/2025 DIABETES RETINOPATHY SCREENING 08/11/2026 08/11/2024 COLON MONITORING 11/12/2030 11/12/2020, 11/12/2020 COLONOSCOPY - COLON CA SCREENING 11/12/2030 11/12/2020, 11/12/2020 Colorectal Cancer Screening 11/12/2030 HEPATITIS C SCREENING Completed 07/23/2020 DEPRESSION SCREENING Completed 03/11/2025, 05/22/2024, 10/18/2022, Additional history exists HEPATITIS B VACCINE Aged Out No longe [...] - POINT OF CARE (AMB) [facility] Routine 03/11/2025 Type 2 diabetes mellitus with diabetic polyneuropathy, with long-term current use of insulin (HCC) EYE EXAM 08/11/2024 BASIC METABOLIC PANEL (CALCIUM TOTAL) Routine 06/04/2024 11:30 AM CDT ENDOSCOPY, COLON, SCREENING Routine 11/12/2020 12:12 PM VISUAL SUPERVISOR MICROALB/CREAT RATIO URINE RANDOM PANEL 07/23/2020 6:49 AM CDT HEPATITIS C AB W/RFLX TO HCV RNA QN PCR 07/23/2020 6:49 AM CDT from Last 3 Months or Most Recently Relevant to Health Maintenance Results * (ABNORMAL) HEMOGLOBIN A1C - POINT OF CARE (AMB) [facility] (03/11/2025) Pathologist [facility] Hemoglobin A1c POCT 6.3(A) 4.2 - 5.8 % QC Verified Yes Yes Blood BLOOD SPECIMEN / Unknown 03/11/2025 us Kiana Cole MD LAB - POINT OF CARE ORD ERABLES Final Result * EYE EXAM (08/11/2024) Anatomical Region Laterality Modality Other Narrative 08/11/2024 Ordered by an unspecified provider. us Scanned Document SCANNING ONLY Final Result * (ABNORMAL) BASIC METABOLIC PANEL (CALCIUM TOTAL) (06/04/2024 11:30 AM CDT) BUN 18 7 - 26 mg/dL 06/04/2024 12:27 PM CDT [facility] Creatinine 0.78 0.71 - 1.16 mg/dL 06/04/2024 12:27 PM CDT [facility] Sodium 135(L) 136 - 145 mmol/L 06/04/2024 12:27 PM CDT [facility] Potassium 4.1 3.5 - 4.5 mmol/L 06/04/2024 12:27 PM CDT [facility] Chloride 102 98 - 107 mmol/L 06/04/2024 12:27 PM [facility] CO2 25 22 - 29 mmol/L 06/04/2024 12:27 PM [facility] Glucose 138(H) 70 - 115 mg/dL 06/04/2024 12:27 PM [facility] Calcium 9.6 8.4 - 10.2 mg/dL 06/04/2024 12:27 PM [facility] Anion Gap 8 6 - 16 06/04/2024 12:27 PM [facility] BUN/Creatinine Ratio 23 7 - 23 06/04/2024 12:27 PM [facility] Osmolality Calculated 284 275 - 295 mOsm/kg 06/04/2024 12:27 PM [facility] eGFR by CKD-EPI >90 >=90 mL/min/1.7 3 m2 06/04/2024 12:27 PM [facility] Blood BLOOD SPECIMEN / Unknown Lab Venipuncture / Unknown 06/04/2024 11:30 AM CDT 06/04/2024 11:51 AM [facility] Jason Coppola MD LAB - CHEMISTRY ORDERABLES Fin al Result [facility] [address] [place] [phone], [facility] [phone] * ENDOSCOPY, COLON, SCREENING (11/12/2020 12:12 PM VISUAL SUPERVISOR) Report Endoscopy POC Endoscopy Department Report _ [...] colon K64.8, Other hemorrhoids CPT copyright 2019 [employer]. All rights reserved. The codes documented in this report are preliminary and upon lumber trimmer review may be revised to meet current compliance requirements. Jodi Vernon MD 11/12/2020 12:57:40 PM Note Initiated On: 11/12/2020 12:12 PM Number of Addenda: [address] [address] [facility] 11/12/2020 12:1 2 PM VISUAL SUPERVISOR Jodi Vernon MD GI PROCEDURE ORDERABLES Ed ited Result - Final [facility] * HEPATITIS C AB W/RFLX TO [...] a test for HCV RNA (test code 25202) is suggested. For additional information please refer to http://education.OpDemand/faq/CSZ04t9 (This link is being provided for informational/ educational purposes only.) Test Performed at: [facility] [id number] [place] [address] EH PURVIS DO,MPH 07/23/2020 6:49 AM CDT 07/23/2020 6:51 AM CDT Lisy Olmedo MD LAB - CHEMISTRY ORDER GISSEL Final Result Performing Organization Address [facility] de Phone Number [facility] [address] [place] [address] * MICROALB/CREAT RATIO URINE RANDOM PANEL (07/23/2020 [...] within a diagnostic category. Test Performed at: [facility] [id number] [place] [address] EH PURVIS DO,MPH 07/23/2020 6:49 AM CDT 07/23/2020 6:51 AM CDT Lisy Olmedo MD LAB - URINE CHEMISTRY ORDERABLES Final Result Performing Organization Address [facility] Phone Number [facility] [address] [place] [address] from Last 3 Months or Most Recently Relevant to Health Maintenance Insurance MEDICARE [facility] MEDICARE Advance Directives Documents on File Type Date Recorded Patient Account Review Specialist Expl anation Durable HCPOA 09/17/2024 4:08 PM [...] Communication Jenn (POA) Mckee Sister Power of Senior Web Architect (P OA) Care Teams Windows Admin Relationship Specialty Start Date End Date Kiana Cole MD [address] [place] [address] PCP - General Internal Medicine 09/16/24 Sylvain Daniels MD Family Medicine 02/15/24
--- OUTSIDE RECORDS SUMMARY | 2025-04-18 15:01 | XMS_ITS | Encounter Summary ---
Author Organization [facility] Address [address] [place] [address] Care Team Providers Care Discharge Coordinator Name Role Phone Sylvain Daniels MD Unavailable [phone] Kiana Cole MD Primary Care Provider Sean Kyle MD Primary Care Provider [phone] Kiana Cole MD Primary Care Provider Reason for Visit * Reason Onset Date Comments Future Appointment 06/10/2024 Encounter Details Date Type Department Care Team (Late st Contact Info) Description 06/10/2024 Telephone [facility] - Cardiology [address] [place] [phone] Andrae Norton MD [address] [facility] [place] [address] Future Appointment Social History Tobacco [...] Recorded Patient Health Questionnaire-2 Score 0 06/04/2024 [facility] - [...] 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 Answer Date of Assessment Author No 05/26/2024 6:37 AM CDT Triny Irizarry RN * Is person blind or have [...] on filedocumented in this encounter Care Teams Discharge Coordinator Relationship Specialty Start Date End Date Kiana Cole MD [address] [place] [address] PCP - General Internal Medicine 05/22/24 08/04/24 Sean Kyle MD [address] [place] [phone] PCP - General Internal Medicine 08/05/24 09/15/24 Kiana Cole MD [address] [place] [address] PCP - General Internal Medicine 09/16/24 Sylvain Daniels MD Family Medicine 02/15/24 documented as of this encounter
[2025-04-18 15:08] VITALS: BP 122/79; PULSE 72; RESP 14; O2SAT 97
[2025-04-18 15:53] VITALS: BP 122/79; PULSE 69; RESP 18; TEMP 36.7; O2SAT 97
--- OUTSIDE RECORDS SUMMARY | 2025-04-18 16:19 | XMS_ITS | CCD ---
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 Name Role Phone Unavailable Primary Care Provider Unavailabl e Unavailable Chronic Care Management Unavaila ble Summary Purpose DataExchange Insurance Providers Payer name Policy type / Coverage type Covered democrat ID Effective Begin Date Effective End Date [place] [id number] Unknown Family history Sister Diagnosis Age At [...] No Inactive Date Active LISINOPRIL angioedema RxNorm: 83298 05/21/2024 No Inactive D ate Active Penicillin [...] disease ICD-10: I11.9 ICD-9: 402.90 07/24/2024 Active FCI (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 ICD-1 0: Z79.4 [...] (2.5 mg base)/3 mL nebulization soln RxNorm: 7064460 Inhale 3 Milliliter(s) Inhalation every 6 hours as needed for shortness of breath 4 11/19/19 25 Inactive albuterol sulfate HFA 90 mcg/actuation aerosol inhaler RxNorm: 1834402 Administer 2 Puff(s) Inhalation every 4 to 6 hours 4 12/20/19 25 Inactive buspirone 5 mg tablet RxNorm: 912890 Take 1 Tablet(s) Oral three times a day 4 10/26/19 25 Inactive Senna Plus 8.6 mg-50 mg tablet RxNorm: 062945 Take 2 Tablet(s) Oral two times a day as needed for constipation 4 07/28/20 24 Inactive multivitamin tablet RxNorm: Take 1 Tablet(s) Oral every day 4 10/20/19 26 Active buspirone 5 mg tablet RxNorm: 455197 Take 1 Tablet(s) Oral two times a day 4 10/16/19 26 Active polyethylene glycol 3350 17 gram/dose oral powder RxNorm: 052555 Use 1 Unit Dose Oral every day Mix 17g (one capful) with 8oz liquid. Hold for loose stools. 4 08/17/20 25 Active ipratropium 0.5 mg-albuterol 3 mg (2.5 mg base)/3 mL nebulization soln RxNorm: 4105031 Administer 3 Milliliter(s) Inhalation every 6 hours as needed for shortness of breath 4 08/22/20 24 Inactive buspirone 5 mg tablet RxNorm: 573492 Take 1 Tablet(s) Oral three times a day 07/23/20 24 Inactive aspirin 81 mg chewable tablet RxNorm: 264635 Take 1 Tablet(s) Feeding Tube / PEG every day 08/13/20 25 Active atorvastatin 40 mg tablet RxNorm: 987608 Take 1 Tablet(s) Feeding Tube / PEG every night at bedtime 08/13/20 25 Active amlodipine 10 mg tablet RxNorm: 559973 Take 1 Tablet(s) Feeding Tube / PEG once daily 08/13/20 25 Active clopidogrel 75 mg tablet RxNorm: 991042 Take 1 Tablet(s) Feeding Tube / PEG once daily 08/13/20 25 Active Pen Needle 31 gauge x 5/16 RxNorm: Take 1 Pen Needle Subcutaneous three times a day 08/13/20 25 Active famotidine 20 mg tablet RxNorm: 758671 Take 1 Tablet(s) Feeding Tube / PEG two times a day 08/13/20 25 Active thiamine HCl (vitamin B1) 100 mg tablet RxNorm: 784181 Take 1 Tablet(s) Feeding Tube / PEG every day 08/13/20 25 Active folic acid 1 mg tablet RxNorm: 494001 Take 1 Tablet(s) Feeding Tube / PEG every day 08/13/20 25 Active multivit-mineral -folic acid 333 mcg-lutein 3 mg-zeaxant 0.67 mg tablet RxNorm: Take 1 Tablet(s) Oral every day 4 No Stop Date Active Lantus Solostar U-100 Insulin 100 unit/mL (3 mL) subcutaneous pen RxNorm: 890182 Administer 15 Unit(s) Subcutaneous every night at bedtime 08/13/20 25 Active loratadine 10 mg tablet RxNorm: 034635 Take 1 Tablet(s) Feeding Tube / PEG every day 08/13/20 25 Active Senna Plus 8.6 mg-50 mg tablet RxNorm: 293966 Take 2 Tablet(s) Feeding Tube / PEG two times a day as needed for constipation 07/29/20 24 Inactive albuterol sulfate HFA 90 mcg/actuation aerosol inhaler RxNorm: 8814860 Administer 2 Puff(s) Inhalation every 4 to 6 hours 4 05/21/20 24 Inactive Medication Administered No Medication Administered data Results Observation Observation Code Item Item Code Result Date Service Location COMPLETE CBC W/ DIFF WBC 61924 WBC 6690-2 6.8 K/ul [facility] [address] [place] [address] 35458 COMPLETE CBC W/ DIFF WBC 59278 RBC 789-8 3.89 M/uL [facility] [address] [place] [address] 54389 COMPLETE CBC W/ DIFF WBC 37802 Hemoglobin 718-7 10.6 g/dL [facility] [address] [place] [address] 09394 COMPLETE CBC W/ DIFF WBC 64139 Hematocrit 4544-3 32.2 % [facility] [address] [place] [address] 70017 COMPLETE CBC W/ DIFF WBC 03844 MCV 787-2 82.9 fL [facility] [address] [place] [address] 59792 COMPLETE CBC W/ DIFF WBC 01579 MCH 785-6 27.3 pg 024 [facility] [address] [place] [address] 69648 COMPLETE CBC W/ DIFF WBC 80427 MCHC 786-4 32.9 g/dL 024 [facility] [address] [place] [address] 74394 COMPLETE CBC W/ DIFF WBC 57433 RDW 788-0 15.5 % 024 [facility] [address] [place] [address] 95731 COMPLETE CBC W/ DIFF WBC 63115 Platelet Count 777-3 303 K/uL 024 [facility] [address] [place] [address] 37349 COMPLETE CBC W/ DIFF WBC 23772 MPV 68655-1 8.0 fL [facility] [address] [place] [address] 76911 COMPLETE CBC W/ DIFF WBC 72512 Neutrophils % 770-8 51.2 % [facility] [address] [place] [address] 99697 COMPLETE CBC W/ DIFF WBC 30912 Lymphocytes % 736-9 39.8 % 08/08/2 024 [facility] [address] [place] [address] COMPLETE CBC W/ DIFF WBC 88419 Monocytes % 5905-5 6.7 % 024 [facility] [address] [place] [address] COMPLETE CBC W/ DIFF WBC 77697 Eosinophils % 713-8 2.1 % 024 [facility] [address] [place] [address] COMPLETE CBC W/ DIFF WBC 63352 Basophils% 706-2 0.2 % 024 [facility] [address] [place] [address] COMPLETE CBC W/ DIFF WBC 64252 Absolute Neutrophil 751-8 3482 /ul 024 [facility] [address] [place] [address] 55012 COMPLETE CBC W/ DIFF WBC 51676 Absolute Lymphocyte 23845-0 2706 /ul 024 [facility] [address] [place] [address] 21305 COMPLETE CBC W/ DIFF WBC 37757 Absolute Monocyte 742-7 456 /ul 024 [facility] [address] [place] [address] 35444 COMPLETE CBC W/ DIFF WBC 83161 Absolute Eosinophil 711-2 143 /ul 024 [facility] [address] [place] [address] 65669 COMPLETE CBC W/ DIFF WBC 26669 Absolute Basophil 704-7 14 /ul 024 [facility] [address] [place] [address] 81259 Direct LDL 25633 LDL-Direct 80384-3 117 mg/dL 024 [facility] [address] [place] [address] 53517 TRIGLYCERIDES 33283 Triglycerides 2571-8 173 mg/dL 024 [facility] [address] [place] [address] 64193 TRIGLYCERIDES 19762 VLDL 11464-5 35 mg/dL 024 [facility] [address] [place] [address] 25570 CHOLESTEROL 14582 Cholesterol 2093-3 177 mg/dL 024 [facility] [address] [place] [address] 65911 CHEM 14 (METABOLIC PANEL) 52073 Glucose 2345-7 138 mg/dL 024 [facility] [address] [place] [address] 14244 CHEM 14 (METABOLIC PANEL) 24108 BUN 3094-0 21 mg/dL 024 [facility] [address] [place] [address] 54687 CHEM 14 (METABOLIC PANEL) 41496 Creatinine 2160-0 0.8 mg/dL 024 [facility] [address] [place] [address] 52545 CHEM 14 (METABOLIC PANEL) 19856 BUN/Creat Ratio 3097-3 25.7 024 [facility] [address] [place] [address] 46227 CHEM 14 (METABOLIC PANEL) 62832 GFR Estimated 78799-1 97 mL/min/1. 73m2 024 [facility] [address] [place] [address] CHEM 14 (METABOLIC PANEL) 25396 Sodium 2951-2 139 mmol/L 024 [facility] [address] [place] [address] 65449 CHEM 14 (METABOLIC PANEL) 08276 Potassium 2823-3 4.0 mmol/L 024 [facility] [address] [place] [address] 92755 CHEM 14 (METABOLIC PANEL) 64558 Chloride 2075-0 98 mmol/L 024 [facility] [address] [place] [address] 12532 CHEM 14 (METABOLIC PANEL) 31940 Total CO2 2028-9 30 mmol/L 024 [facility] [address] [place] [address] 16057 CHEM 14 (METABOLIC PANEL) 35659 Anion Gap 1863-0 15.0 mEq/L 024 [facility] [address] [place] [address] 46188 CHEM 14 (METABOLIC PANEL) 32655 Calculated Serum Osmolality 16568-6 293 mOsm/kg 024 [facility] [address] [place] [address] 66037 CHEM 14 (METABOLIC PANEL) 91334 Albumin 08981-9 3.1 g/dL 024 [facility] [address] [place] [address] 53135 CHEM 14 (METABOLIC PANEL) 47975 Total Protein 2885-2 7.5 g/dL 024 [facility] [address] [place] [address] 02695 CHEM 14 (METABOLIC PANEL) 15595 Globulin 2336-6 4.4 g/dL 024 [facility] [address] [place] [address] 27529 CHEM 14 (METABOLIC PANEL) 58954 Albumin/Globulin Ratio 1759-0 0.7 024 [facility] [address] [place] [address] 42547 CHEM 14 (METABOLIC PANEL) 15288 ALK PHOS 6768-6 66.00 U/L 024 [facility] [address] [place] [address] CHEM 14 (METABOLIC PANEL) 87517 SGOT/AST 1920-8 13 U/L 024 [facility] [address] [place] [address] CHEM 14 (METABOLIC PANEL) 21249 SGPT/ALT 1743-4 19 U/L 024 [facility] [address] [place] [address] CHEM 14 (METABOLIC PANEL) 18685 Total Bilirubin 1975-2 0.3 mg/dL 024 [facility] [address] [place] [address] CHEM 14 (METABOLIC PANEL) 95996 Calcium 57588-6 9.4 mg/dL 024 [facility] [address] [place] [address] CHEM 14 (METABOLIC PANEL) 91605 Corrected Calcium 40796-3 10.3 mg/dL 024 [facility] [address] [place] [address] PTH 96891 PTH 2731-8 21.7 pg/mL 024 [facility] [address] [place] [address] VITAMIN B-12 80379 Vitamin B12 2132-9 609 pg/mL 05/22 024 [facility] [address] [place] [address] 00963 F3Y-KRTTNGDCTOEAV IN 4548-4 Glyco HGB A1C 13450-6 7.0 % 024 [facility] [address] [place] [address] 21109 U2D-KWOPSEFXGPKOK IN [facility]8-4 eAG 52579-5 154 mg/dL 024 [facility] [address] [place] [address] HDL - CHOL 57561 HDL 2085-9 30 mg/dL 024 [facility] [address] [place] [address] HDL - CHOL 28480 CHD 34918-2 17 % 024 [facility] [address] [place] [address] TSH 69810 TSH 88789-9 2.540 uIU/mL 024 [facility] [address] [place] [address] Procedures Procedure Codes Date Annual Wellness Visit (Initial Visit) CPT-4: G04 38 07/24/2024 FLU VACC CELL CULT PRSV FREE CPT-4: 00259 07/2024 Most recent A1c = 7.0% and < 8.0% CPT-4: 3051F 07/24/2024 FLUCEL VAX PFS VAC NO PRSV 0.5ML IM CPT-4: 27917 07/24/2024 Admin flu virus vaccine CPT-4: G0008 07/24/20 24 LEVEL OF ACTIVITY ASSESS CPT-4: 1003F 024 PT SCRN TBCO ID NON USER CPT-4: G9903 07/15 Current tobacco non-user CPT-4: 1036F 024 Amnt pain noted; none prsnt CPT-4: 1126F 07/15 MED LIST DOCD IN [facility] CPT-4: 1159F 07/24/2024 RVW MEDS BY RX/DR IN [facility] CPT-4: 116F 2023 Patient Screened for Future Fall Risk CPT-4: 110 0F 07/24/2024 Fall plan of care doc'd CPT-4: 0518F 07/24/20 24 Most recent A1c = 7.0% and < 8.0% CPT-4: 305F 06/24/2024 MED LIST DOCD IN [facility] CPT-4: 1159F 06/24/2024 RVW MEDS BY RX/DR IN [facility] CPT-4: 1160F 2023 Discharge Meds Reconciled w/ Current Med list CP T-4: 1111F 06/24/2024 Amnt pain noted; none prsnt CPT-4: 1126F 06/[address] CPT-4: 1159F 05/21/2024 RVW MEDS BY RX/DR IN [facility] CPT-4: 1160F 2023 Discharge Meds Reconciled w/ Current Med list CP T-4: 1111F 05/21/2024 Amnt pain noted; none prsnt CPT-4: 1126F 04/2024 Screening for clinical depre ssion is negative, follow-up plan not required CPT-4: G8510 05/21/2024 Patient Screened for Future Fall Risk CPT-4: 110 0F 05/21/2024 Fall plan of care doc'd CPT-4: 0518F 05/21/20 24 Cologuard CPT-4: 97249 Unknown U7K-Pmncwlqynpypzbo CPT-4: 58154 Unknown Gastroenterology Referral SNOMED CT: [phone] CPT-4: R12 Unknown Vital Signs Date Vital 07/24/2024 Blood Pressure 1: 120/82 Code: 8480-6 BMI: 32.3 Code: 23523-2 Heart Rate 1: 81 bpm Height: 6'4 Code: 8302-2 Respiratory Rate: 16 bpm SpO2: 97% Temperature: 36.1 (C) / 97.0 (F) Weight: 265 lbs Code: 21774-5 06/24/2024 Blood Pressure 1: 134/76 Code: 8480-6 BMI: 34.6 Code: 62157-4 Heart Rate 1: 86 bpm Height: 6'4 Code: 8302-2 Respiratory Rate: 17 bpm SpO2: 94% Temperature: 36.4 (C) / 97.6 (F) Weight: 284 lbs Code: 67798-4 05/21/2024 Blood Pressure 1: 135/82 Code: 8480-6 BMI: 32.3 Code: 00907-7 Heart Rate 1: 84 bpm Height: 6'4 Code: 8302-2 Respiratory Rate: 17 bpm SpO2: 93% Temperature: 35.6 (C) / 96.0 (F) Weight: 265 lbs Code: 84908-5 Reason For Visit Reason For Visit Effective [...] disease)[ICD10: K21.9] Diagnosis: Gastrostomy present[ICD10: Z93.1] Diagnosis: FCI (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[ICD10: Z79.4] Diagnosis: At high risk for falls[ICD10: Z91.81] [facility] Office [address] [place] [address] CPT-4: G0438 4 (50847) Home or Residence Visit Est Pt - Low Level, 30 mins Diagnosis: Hemiparesis due to recent cerebrovascular accident (CVA)[ICD10: I69.359] Diagnosis: Diabetes mellitus due to underlying condition with diabetic neuropathy, with long-term current use of insulin[ICD10: E08.40] 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[ICD10: Z79.4] Diagnosis: Diplopia[ICD10: [...] Diagnosis: At high risk for falls[ICD10: Z91.81] [facility] [address] [place] [address] CPT-4: 07348 4 (04973) Home or Residence Visit Est Pt - Moderate Level, 40 mins Diagnosis: Syncope[ICD10: R55] Diagnosis: Hemiparesis due to recent cerebrovascular accident (CVA)[ICD10: I69.359] Diagnosis: Diabetes mellitus due to underlying condition with diabetic neuropathy, with long-term current use of insulin[ICD10: E08.40] Diagnosis: FCI (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[ICD10: Z79.4] Diagnosis: Hypertension [...] cancer screening[ICD10: Z12.11] Diagnosis: Paroxysmal cough[ICD10: R05.8] [facility] [address] [place] [address] CPT-4: 49316 4 (12458) 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, 60 mins Diagnosis: Hemiparesis due to recent cerebrovascular accident (CVA)[ICD10: I69.359] Diagnosis: Gastrostomy present[ICD10: Z93.1] Diagnosis: Diabetes mellitus due to underlying condition with diabetic neuropathy, with long-term current use of insulin[ICD10: E08.40] Diagnosis: Hypertension with heart disease[ICD10: I11.9] Diagnosis: Dysphagia as late effect of cerebrovascular accident (CVA)[ICD10: I69.391] 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 On Lantus Z79.4-V58.67 FCI (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: On Lantus 15 [...] placed R05.8-786.2 Paroxysmal cough R26.9-781.2 Gait abnormality: [facility] . On PT progressing J45.909-493.90 Asthma K21.9-530.81 GERD (gastroesophageal reflux disease): On Pepcid 07/24/2024 Appointment: Sean Kyle WPtel: [address] [facility] E034 07/24/2024 Patient Education: Obesity Completed [...] insulin: Stable. Hba1c 7.0. 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 On PT/OT for strengthening, balance, coordination Z12.11-V76.51 Colon cancer screening: Fuentes R05.8-786.2 Paroxysmal cough: poss due to poor pharyngeal reflex, GERD . Try Protonix. Oropharyngeal suctioning. Order Suction Aspirator 06/24/2024 Appointment: Sean Kyle WPtel: [address] [place], [place] [address] E034 06/24/2024 Patient Education: Obesity Completed 06/24/2024 Patient Education: Patient Medication Summary Completed 06/24/2024 Care Plan: Cologuard Ordered 06/15 Appointment: Oscar Hyot WPtel: [address] [facility] [address] [id number] [place] Phone Call 06/20/2024 Appointment: Mony Moseley WPtel: [address] [id number] [place] Phone Call 06/06/2024 [facility] 05/26/2024 Visit Plan: I69.359-438.20 [...] effect of cerebrovascular accident (CVA) Z79.4- terminal makeup operator (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 I69.322-438.13 Dysarthria [...] findings 05/21/2024 [facility]ment: [facility] 05/21/2024 Patient Education: Patient Medication Summary Completed 05/21/2024 Patient Education: Obesity Completed 05/21/2024 Referral: [facility] WPtel: [address] [place], [place] [address] Referral faxed to: Agency Name: [facility] Agency Address: [address] [address] Agency Phone #: [phone] Agency Agency will contact the patient to schedule Order Faxed Referral: Pending Medical Records Information [facility] requires Consent when requesting records, there i currently no consent on file for the patient can we get consent [facility] so we can finish the request. thank you On Hold Awaiting Documentation Referral: [facility] WPtel: [phone] [facility]- [address] Ru[address] [facility], [address], [place] [address] Reprocess Referral: Provider Ghada Hurtado WPtel: [address] [place] [address] 05/22/2024 order faxed to agency. Not Taken Up Referral: Residential home health WPtel: [facility] [facility] [place] Referral ACT - [facility] Referral: Pending Video Editor Referral Information lvm , provided the above agency information. Instructed to call O&R department if they do not hear back from agency withing 7-10 days.05/22/24 no answer, lvm to cb Spoke with office HVS Referral faxed to:[facility] Agency Name: _[facility] Agency Address:_ [address], [place] [address] Agency Phone #:_ Agency _ Agency will contact the patient to schedule appointment. Order Faxed Referral: Sean Kyle WPtel: [address] [facility] [address] [facility] [place] Agency contacted, confirmed they're accepting new patients. They will run insurance once order is received Referral faxed to: Agency Name: [facility] [employer] Agency Address: [address] , [address], [place] [address] Agency Phone #:[phone] Agency Agency will ship to patient. pt has referral info Order Faxed Referral: Residential home health WPtel: [address] [id number] [place] Referral ACT - HH Cert Referral: Madiha Hurtado WPtel: [address] [facility] Notes & referral faxed to [facility] [phone] [phone] Order Faxed Referral: Pending [employer]lies Order Information called and spoke to Nanette patient ANAYELIA an advised contact number given Order Faxed Referral: Sean Kyle WPtel: [address] [facility] 06-24-2024. Called pt. spoke with Jenn [...] all available medical records at my disposal. I69.611-438.20 Hemiparesis due to recent cerebrovascular accident (CVA): Has Rt sided weakness. On PT E08.40-249.60 Diabetes mellitus due to underlying condition with diabetic neuropathy, with long-term current use of insulin: Stable Hba1c 7.0. 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 On PT progressing J45.909-493.90 Asthma [...] insulin: Stable. Hba1c 7.0. 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 On PT/OT for strengthening, balance, [...] effect of cerebrovascular accident (CVA) Z79.4- terminal makeup operator (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 I69.322-438.13 Dysarthria [...]
--- OUTSIDE RECORDS SUMMARY | 2025-04-18 16:19 | XMS_ITS | Clinical Summary ---
Author Organization [facility] Address [address] [place] [address] Care Team Providers Care Living Skills Advisor Name Role Phone Sean Kyle MD Primary Care Provider [phone] Allergies Active Allergy Reactions Criticality Noted Date [...] Date Confusion 05/25/2024 Near syncope 05/22/2024 Asthma ([facility]) 05/22/2024 Dysphagia following cerebral infarction 03/19/20 24 Cerebrovascular accident ([facility]) 03/12 Staphylococcus aureus infection 02/08/2024 [...] LDL-C. Mika EATON et al. RAFFI. 2013;310(19): 8932-7261 (http://education.[employer]/faq/ANN613) CHOL/HDLC RATIO <5.0 (calc) 5.3High Non HDL [...] needs weight loss desperately and referred to room service waiter/waitress asked him to stop naproxen Atherosclerosis of coronary artery 01/23/2018 Overview (05/22/2024): Last Assessment & Plan: without angina needs more aggressive RFM continue aspirin Controlled type 2 diabetes francisco carney without complication, without long-term current use of insulin ([facility]) 09/28/2011 Resolved Problems Problem Noted [...] History of ETOH use prior to stroke [facility] Utilities Answer Date Recorded In the past 12 months has [employer], [employer], oil, or water [employer] threatened to shut off services in your [...] any time in the past [address] [facility], were you homeless or living in a penitentiary (including now)? Patient unable to answer 05/23/2024 [...] 7.4(H) <5.7 % 05/23/2024 1:29 AM CDT [facility] Comment: ADA GUIDELINES 2010 5.7 TO 6.4% INCREASED RISK OF DIABETES > OR = 6.5% CONSISTENT WITH DIABETES ESTIMATED AVG GLUCOSE 166 mg/dL 05/23/2024 1:29 AM CDT [facility] 05/22/2024 6:25 PM CDT Yaritza Cowart NP LABORATORY Final Result [facility] [address] [place] [address], from Last 3 Months or Most Recently Relevant to Health Maintenance Insurance MEDICARE Advance Directives * Full Code (Latest Code Status on File) Date Activated Date Inactivated Comments 05/22/2024 11:15 PM 05/25/2024 9:20 PM Care Teams Living Skills Advisor Relationship Specialty Start Date End Date Sean Kyle MD [address] [address] PCP - General INTERNAL MEDICINE 05/22/24
--- OUTSIDE RECORDS SUMMARY | 2025-04-18 16:19 | XMS_ITS | CCD ---
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 Role Phone Unavailable Primary Care Provider Unavailabl e Unavailable Chronic Care Management Unavaila ble Summary Purpose DataExchange Insurance Providers Payer name Policy type / Coverage type Covered republican ID Effective Begin Date Effective End Date [place] [id number] Unknown Family history Sister Diagnosis Age At [...] No Inactive Date Active LISINOPRIL angioedema RxNorm: 90727 05/21/2024 No Inactive D ate Active Penicillin [...] disease ICD-10: I11.9 ICD-9: 402.90 07/24/2024 Active MCC (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 ICD-1 0: Z79.4 [...] Syncope ICD-10: R55 ICD-9: 780.2 06/24/2024 Active MCC (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 ICD-10: Z79.4 05/21 Active Urinary incontinence ICD-10: R32 ICD-9: 788.30 05/21/2024 Active Medications Medication Codes Instructions Start Date Stop Date Status Fill Instructions ipratropium 0.5 mg-albuterol 3 mg (2.5 mg base)/3 mL nebulization soln RxNorm: 6519213 Inhale 3 Milliliter(s) Inhalation every 6 hours as needed for shortness of breath 4 11/19/19 25 Inactive albuterol sulfate HFA 90 mcg/actuation aerosol inhaler RxNorm: 2307577 Administer 2 Puff(s) Inhalation every 4 to 6 hours 4 12/20/19 25 Inactive buspirone 5 mg tablet RxNorm: 068649 Take 1 Tablet(s) Oral three times a day 4 10/26/19 25 Inactive Senna Plus 8.6 mg-50 mg tablet RxNorm: 706904 Take 2 Tablet(s) Oral two times a day as needed for constipation 4 07/28/20 24 Inactive multivitamin tablet RxNorm: Take 1 Tablet(s) Oral every day 4 10/20/19 26 Active buspirone 5 mg tablet RxNorm: 355663 Take 1 Tablet(s) Oral two times a day 4 10/16/19 26 Active polyethylene glycol 3350 17 gram/dose oral powder RxNorm: 800902 Use 1 Unit Dose Oral every day Mix 17g (one capful) with 8oz liquid. Hold for loose stools. 4 08/17/20 25 Active ipratropium 0.5 mg-albuterol 3 mg (2.5 mg base)/3 mL nebulization soln RxNorm: 7874161 Administer 3 Milliliter(s) Inhalation every 6 hours as needed for shortness of breath 4 08/22/20 24 Inactive buspirone 5 mg tablet RxNorm: 571034 Take 1 Tablet(s) Oral three times a day 07/23/20 24 Inactive aspirin 81 mg chewable tablet RxNorm: 545597 Take 1 Tablet(s) Feeding Tube / PEG every day 08/13/20 25 Active atorvastatin 40 mg tablet RxNorm: 951513 Take 1 Tablet(s) Feeding Tube / PEG every night at bedtime 08/13/20 25 Active amlodipine 10 mg tablet RxNorm: 293793 Take 1 Tablet(s) Feeding Tube / PEG once daily 08/13/20 25 Active clopidogrel 75 mg tablet RxNorm: 391368 Take 1 Tablet(s) Feeding Tube / PEG once daily 08/13/20 25 Active Pen Needle 31 gauge x 5/16 RxNorm: Take 1 Pen Needle Subcutaneous three times a day 08/13/20 25 Active famotidine 20 mg tablet RxNorm: 853575 Take 1 Tablet(s) Feeding Tube / PEG two times a day 08/13/20 25 Active thiamine HCl (vitamin B1) 100 mg tablet RxNorm: 501492 Take 1 Tablet(s) Feeding Tube / PEG every day 08/13/20 25 Active folic acid 1 mg tablet RxNorm: 708563 Take 1 Tablet(s) Feeding Tube / PEG every day 08/13/20 25 Active multivit-mineral -folic acid 333 mcg-lutein 3 mg-zeaxant 0.67 mg tablet RxNorm: Take 1 Tablet(s) Oral every day 4 No Stop Date Active Lantus Solostar U-100 Insulin 100 unit/mL (3 mL) subcutaneous pen RxNorm: 006897 Administer 15 Unit(s) Subcutaneous every night at bedtime 08/13/20 25 Active loratadine 10 mg tablet RxNorm: 154676 Take 1 Tablet(s) Feeding Tube / PEG every day 08/13/20 25 Active Senna Plus 8.6 mg-50 mg tablet RxNorm: 283848 Take 2 Tablet(s) Feeding Tube / PEG two times a day as needed for constipation 07/29/20 24 Inactive albuterol sulfate HFA 90 mcg/actuation aerosol inhaler RxNorm: 8472133 Administer 2 Puff(s) Inhalation every 4 to 6 hours 4 05/21/20 24 Inactive Medication Administered No Medication Administered data Results Observation Observation Code Item Item Code Result Date Service Location COMPLETE CBC W/ DIFF WBC 77111 WBC 6690-2 6.8 K/ul [facility] [address] [place] [address] 37839 COMPLETE CBC W/ DIFF WBC 20809 RBC 789-8 3.89 M/uL [facility] [address] [place] [address] 39663 COMPLETE CBC W/ DIFF WBC 21519 Hemoglobin 718-7 10.6 g/dL [facility] [address] [place] [address] 48140 COMPLETE CBC W/ DIFF WBC 40910 Hematocrit 4544-3 32.2 % [facility] [address] [place] [address] 98761 COMPLETE CBC W/ DIFF WBC 36554 MCV 787-2 82.9 fL [facility] [address] [place] [address] 40308 COMPLETE CBC W/ DIFF WBC 97869 MCH 785-6 27.3 pg 024 [facility] [address] [place] [address] 72519 COMPLETE CBC W/ DIFF WBC 41580 MCHC 786-4 32.9 g/dL 024 [facility] [address] [place] [address] 40741 COMPLETE CBC W/ DIFF WBC 63081 RDW 788-0 15.5 % 024 [facility] [address] [place] [address] 16218 COMPLETE CBC W/ DIFF WBC 18103 Platelet Count 777-3 303 K/uL 024 [facility] [address] [place] [address] 39140 COMPLETE CBC W/ DIFF WBC 64971 MPV 09906-0 8.0 fL [facility] [address] [place] [address] 27529 COMPLETE CBC W/ DIFF WBC 06724 Neutrophils % 770-8 51.2 % [facility] [address] [place] [address] 08763 COMPLETE CBC W/ DIFF WBC 11635 Lymphocytes % 736-9 39.8 % 08/08/2 024 [facility] [address] [place] [address] COMPLETE CBC W/ DIFF WBC 91976 Monocytes % 5905-5 6.7 % 024 [facility] [address] [place] [address] COMPLETE CBC W/ DIFF WBC 91515 Eosinophils % 713-8 2.1 % 024 [facility] [address] [place] [address] COMPLETE CBC W/ DIFF WBC 84663 Basophils% 706-2 0.2 % 024 [facility] [address] [place] [address] COMPLETE CBC W/ DIFF WBC 08610 Absolute Neutrophil 751-8 3482 /ul 024 [facility] [address] [place] [address] 77409 COMPLETE CBC W/ DIFF WBC 59343 Absolute Lymphocyte 64320-6 2706 /ul 024 [facility] [address] [place] [address] 96277 COMPLETE CBC W/ DIFF WBC 04192 Absolute Monocyte 742-7 456 /ul 024 [facility] [address] [place] [address] 64109 COMPLETE CBC W/ DIFF WBC 13636 Absolute Eosinophil 711-2 143 /ul 024 [facility] [address] [place] [address] 12801 COMPLETE CBC W/ DIFF WBC 87583 Absolute Basophil 704-7 14 /ul 024 [facility] [address] [place] [address] 09183 Direct LDL 92989 LDL-Direct 53731-1 117 mg/dL 024 [facility] [address] [place] [address] 12844 TRIGLYCERIDES 66466 Triglycerides 2571-8 173 mg/dL 024 [facility] [address] [place] [address] 53823 TRIGLYCERIDES 09876 VLDL 14917-0 35 mg/dL 024 [facility] [address] [place] [address] 18243 CHOLESTEROL 33671 Cholesterol 2093-3 177 mg/dL 024 [facility] [address] [place] [address] 48800 CHEM 14 (METABOLIC PANEL) 83049 Glucose 2345-7 138 mg/dL 024 [facility] [address] [place] [address] 09063 CHEM 14 (METABOLIC PANEL) 26585 BUN 3094-0 21 mg/dL 024 [facility] [address] [place] [address] 62088 CHEM 14 (METABOLIC PANEL) 28993 Creatinine 2160-0 0.8 mg/dL 024 [facility] [address] [place] [address] 70715 CHEM 14 (METABOLIC PANEL) 32521 BUN/Creat Ratio 3097-3 25.7 024 [facility] [address] [place] [address] 55864 CHEM 14 (METABOLIC PANEL) 22109 GFR Estimated 91090-2 97 mL/min/1. 73m2 024 [facility] [address] [place] [address] CHEM 14 (METABOLIC PANEL) 02472 Sodium 2951-2 139 mmol/L 024 [facility] [address] [place] [address] 51450 CHEM 14 (METABOLIC PANEL) 92975 Potassium 2823-3 4.0 mmol/L 024 [facility] [address] [place] [address] 33195 CHEM 14 (METABOLIC PANEL) 40164 Chloride 2075-0 98 mmol/L 024 [facility] [address] [place] [address] 63914 CHEM 14 (METABOLIC PANEL) 48335 Total CO2 2028-9 30 mmol/L 024 [facility] [address] [place] [address] 82718 CHEM 14 (METABOLIC PANEL) 28945 Anion Gap 1863-0 15.0 mEq/L 024 [facility] [address] [place] [address] 21262 CHEM 14 (METABOLIC PANEL) 28527 Calculated Serum Osmolality 71066-2 293 mOsm/kg 024 [facility] [address] [place] [address] 68591 CHEM 14 (METABOLIC PANEL) 18911 Albumin 96003-3 3.1 g/dL 024 [facility] [address] [place] [address] 76260 CHEM 14 (METABOLIC PANEL) 63172 Total Protein 2885-2 7.5 g/dL 024 [facility] [address] [place] [address] 90808 CHEM 14 (METABOLIC PANEL) 50295 Globulin 2336-6 4.4 g/dL 024 [facility] [address] [place] [address] 98250 CHEM 14 (METABOLIC PANEL) 94704 Albumin/Globulin Ratio 1759-0 0.7 024 [facility] [address] [place] [address] 31129 CHEM 14 (METABOLIC PANEL) 30401 ALK PHOS 6768-6 66.00 U/L 024 [facility] [address] [place] [address] CHEM 14 (METABOLIC PANEL) 47933 SGOT/AST 1920-8 13 U/L 024 [facility] [address] [place] [address] CHEM 14 (METABOLIC PANEL) 90001 SGPT/ALT 1743-4 19 U/L 024 [facility] [address] [place] [address] CHEM 14 (METABOLIC PANEL) 44912 Total Bilirubin 1975-2 0.3 mg/dL 024 [facility] [address] [place] [address] CHEM 14 (METABOLIC PANEL) 91395 Calcium 95699-4 9.4 mg/dL 024 [facility] [address] [place] [address] CHEM 14 (METABOLIC PANEL) 89002 Corrected Calcium 57381-9 10.3 mg/dL 024 [facility] [address] [place] [address] PTH 67086 PTH 2731-8 21.7 pg/mL 024 [facility] [address] [place] [address] VITAMIN B-12 03311 Vitamin B12 2132-9 609 pg/mL 05/22 024 [facility] [address] [place] [address] 53212 [id number]-[id number] IN 4548-4 Glyco HGB A1C 45155-0 7.0 % 024 [facility] [address] [place] [address] 63470 [id number] IN [facility]-4 eAG 36709-0 154 mg/dL 024 [facility] [address] [place] [address] HDL - CHOL 27274 HDL 2085-9 30 mg/dL 024 [facility] [address] [place] [address] HDL - CHOL 88596 CHD 28164-2 17 % 024 [facility] [address] [place] [address] TSH 87360 TSH 22151-0 2.540 uIU/mL 024 [facility] [address] [place] [address] Procedures Procedure Codes Date Annual Wellness Visit (Initial Visit) CPT-4: G04 38 07/24/2024 FLU VACC CELL CULT PRSV FREE CPT-4: 91877 07/2024 Most recent A1c = 7.0% and < 8.0% CPT-4: 3051F 07/24/2024 FLUCEL VAX PFS VAC NO PRSV 0.5ML IM CPT-4: 11590 07/24/2024 Admin flu virus vaccine CPT-4: G0008 07/24/20 24 LEVEL OF ACTIVITY ASSESS CPT-4: 1003F 024 PT SCRN TBCO ID NON USER CPT-4: G9903 07/15 Current tobacco non-user CPT-4: 1036F 024 Amnt pain noted; none prsnt CPT-4: 1126F 07/15 MED LIST DOCD IN [facility] CPT-4: 1159F 07/24/2024 RVW MEDS BY RX/DR IN [facility] CPT-4: 116F 2023 Patient Screened for Future Fall Risk CPT-4: 110 0F 07/24/2024 Fall plan of care doc'd CPT-4: 0518F 07/24/20 24 Most recent A1c = 7.0% and < 8.0% CPT-4: 305F 06/24/2024 MED LIST DOCD IN [facility] CPT-4: 1159F 06/24/2024 RVW MEDS BY RX/DR IN [facility] CPT-4: 1160F 2023 Discharge Meds Reconciled w/ Current Med list CP T-4: 1111F 06/24/2024 Amnt pain noted; none prsnt CPT-4: 1126F 06/[address] CPT-4: 1159F 05/21/2024 RVW MEDS BY RX/DR IN [facility] CPT-4: 1160F 2023 Discharge Meds Reconciled w/ Current Med list CP T-4: 1111F 05/21/2024 Amnt pain noted; none prsnt CPT-4: 1126F 04/2024 Screening for clinical depre ssion is negative, follow-up plan not required CPT-4: G8510 05/21/2024 Patient Screened for Future Fall Risk CPT-4: 110 0F 05/21/2024 Fall plan of care doc'd CPT-4: 0518F 05/21/20 24 Cologuard CPT-4: 06921 Unknown [id number]-[id number] CPT-4: 47262 Unknown Gastroenterology Referral SNOMED CT: 306 350333 CPT-4: R12 Unknown Vital Signs Date Vital 07/24/2024 Blood Pressure 1: 120/82 Code: 8480-6 BMI: 32.3 Code: 22931-7 Heart Rate 1: 81 bpm Height: 6'4 Code: 8302-2 Respiratory Rate: 16 bpm SpO2: 97% Temperature: 36.1 (C) / 97.0 (F) Weight: 265 lbs Code: 85947-7 06/24/2024 Blood Pressure 1: 134/76 Code: 8480-6 BMI: 34.6 Code: 80638-5 Heart Rate 1: 86 bpm Height: 6'4 Code: 8302-2 Respiratory Rate: 17 bpm SpO2: 94% Temperature: 36.4 (C) / 97.6 (F) Weight: 284 lbs Code: 74991-7 05/21/2024 Blood Pressure 1: 135/82 Code: 8480-6 BMI: 32.3 Code: 67451-0 Heart Rate 1: 84 bpm Height: 6'4 Code: 8302-2 Respiratory Rate: 17 bpm SpO2: 93% Temperature: 35.6 (C) / 96.0 (F) Weight: 265 lbs Code: 39952-5 Reason For Visit Reason For Visit Effective [...] disease)[ICD10: K21.9] Diagnosis: Gastrostomy present[ICD10: Z93.1] Diagnosis: MCC (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[ICD10: Z79.4] Diagnosis: At high risk for falls[ICD10: Z91.81] [facility] Office [address] [place] [address] CPT-4: G0438 4 (43264) Home or Residence Visit Est Pt - Low Level, 30 mins Diagnosis: Hemiparesis due to recent cerebrovascular accident (CVA)[ICD10: I69.359] Diagnosis: Diabetes mellitus due to underlying condition with diabetic neuropathy, with long-term current use of insulin[ICD10: E08.40] 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[ICD10: Z79.4] Diagnosis: Diplopia[ICD10: [...] Diagnosis: At high risk for falls[ICD10: Z91.81] [facility] Office [address] [place] [address] CPT-4: 21884 4 (69582) Home or Residence Visit Est Pt - Moderate Level, 40 mins Diagnosis: Syncope[ICD10: R55] Diagnosis: Hemiparesis due to recent cerebrovascular accident (CVA)[ICD10: I69.359] Diagnosis: Diabetes mellitus due to underlying condition with diabetic neuropathy, with long-term current use of insulin[ICD10: E08.40] Diagnosis: MCC (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[ICD10: Z79.4] Diagnosis: Hypertension [...] cancer screening[ICD10: Z12.11] Diagnosis: Paroxysmal cough[ICD10: R05.8] [facility] Office [address] [place] [address] CPT-4: 09529 4 (55511) 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, 60 mins Diagnosis: Hemiparesis due to recent cerebrovascular accident (CVA)[ICD10: I69.359] Diagnosis: Gastrostomy present[ICD10: Z93.1] Diagnosis: Diabetes mellitus due to underlying condition with diabetic neuropathy, with long-term current use of insulin[ICD10: E08.40] Diagnosis: Hypertension with heart disease[ICD10: I11.9] Diagnosis: Dysphagia as late effect of cerebrovascular accident (CVA)[ICD10: I69.391] 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 On Lantus Z79.4-V58.67 MCC (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: On Lantus 15 [...] placed R05.8-786.2 Paroxysmal cough R26.9-781.2 Gait abnormality: [facility] . On PT progressing J45.909-493.90 Asthma K21.9-530.81 GERD (gastroesophageal reflux disease): On Pepcid 07/24/2024 Appointment: Sean Kyle WPtel: [address] [facility] E034 07/24/2024 Patient Education: Obesity Completed [...] Stable. Hba1c 7.0. 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 On PT/OT for strengthening, balance, coordination Z12.11-V76.51 Colon cancer screening: Fuentes R05.8-786.2 Paroxysmal cough: poss due to poor pharyngeal reflex, GERD . Try Protonix. Oropharyngeal suctioning. Order Suction Aspirator 06/24/2024 Appointment: Sean Kyle WPtel: [address] [place], [place] [address] E034 06/24/2024 Patient Education: Obesity Completed 06/24/2024 Patient Education: Patient Medication Summary Completed 06/24/2024 Care Plan: Cologuard Ordered 06/15 Appointment: Oscar Hoyt WPtel: [address] [facility] [address] [id number] [place] Phone Call 06/20/2024 Appointment: Mony Moseley WPtel: [address] [id number] [place] Phone Call 06/06/2024 Appointment: [facility]ose[facility] [address] [facility] [facility] 05/26/2024 Visit Plan: I69.359-438.20 [...] effect of cerebrovascular accident (CVA) Z79.4- 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 (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 I69.322-438.13 Dysarthria as [...] [facility] [address] [facility] [facility] 05/21/2024 Patient Education: Patient Medication Summary Completed 05/21/2024 Patient Education: Obesity Completed 05/21/2024 Referral: [facility] WPtel: [address] [place], [place] [address] Referral faxed to: Agency Name: [facility] Agency Address: [address] [address] Agency Phone #: [phone] Agency Agency will contact the patient to schedule Order Faxed Referral: Pending Medical Records Information [facility] requires Consent when requesting records, there i currently no consent on file for the patient can we get consent uploaded to [facility] so we can finish the request. thank you On Hold Awaiting Documentation Referral: [facility] WPtel: [id number] [facility]- [address] Ruiz [address] [facility], [address], [place] [address] Reprocess Referral: Provider Ghada Hurtado WPtel: [address] [place] [address] 05/22/2024 order faxed to agency. Not Taken Up Referral: Residential home health WPtel: [facility] [facility] [place] Referral ACT - 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 Instructed to call O&R department if they do not hear back from agency withing 7-10 days.05/22/24 no answer, lvm to cb Spoke with office HVS Referral faxed to:[facility] Agency Name: _[facility] [employer] [facility] Agency Address:_ [address], [place] [address] Agency Phone #:_ Agency _ Agency will contact the patient to schedule appointment. Order Faxed Referral: Sean Kyle WPtel: [address] [facility] [address] [facility] [place] Agency contacted, confirmed they're accepting new patients. They will run insurance once order is received Referral faxed to: Agency Name: [facility] Agency Address: [address] , [address], [place] [address] Agency Phone #:[phone] Agency Agency will ship to patient. pt has referral info Order Faxed Referral: Residential home health WPtel: [address] [id number] [place] Referral ACT - HH Cert Referral: Madiha Hurtado WPtel: [address] [facility] [id number] Notes & referral faxed to [facility] [phone] Order Faxed Referral: Pending Incontinence Supplies Order Information called and spoke to Nanette patient ANAYELIA an advised contact number given Order Faxed Referral: Sean Kyle WPtel: [address] [facility] 06-24-2024. Called pt. spoke with Jenn [...] all available medical records at my disposal. I69.143-438.20 Hemiparesis due to recent cerebrovascular accident (CVA): Has Rt sided weakness. On PT E08.40-249.60 Diabetes mellitus due to underlying condition with diabetic neuropathy, with long-term current use of insulin: Stable Hba1c 7.0. 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 On PT progressing J45.909-493.90 Asthma [...] Stable. Hba1c 7.0. 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 On PT/OT for strengthening, balance, [...] effect of cerebrovascular accident (CVA) Z79.4- 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 (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 I69.322-438.13 Dysarthria as [...]
--- OUTSIDE RECORDS SUMMARY | 2025-04-18 16:19 | XMS_ITS | Encounter Summary ---
Author Organization [facility] Address [address] [facility] [place] [address] Care Team Providers Care Equipment Technician Name Role Phone Lisy Olmedo MD Primary Care Provide r Sylvain Daniels MD Primary Care Provider + [phone] None, Physician Primary Care Provider Unavailabl e Sylvain Daniels MD Unavailable [phone] Sylvain Daniels MD Unavailable [phone] Sylvain Daniels MD Unavailable [phone] Sylvain Daniels MD Primary Care Provider + [phone] Kiana Cole MD Primary Care Provider Sean Kyle MD Primary Care Provider [phone] Kiana Cole MD Primary Care Provider Reason for Visit * Reason Onset Date Comments MEDICATION REFILL 12/27/2020 Encounter Details Date Type Department Care Team (Late st Contact Info) Description 12/27/2020 Refill [facility] Medicine [address] [facility] [address] [place] [address] Lisy Olmedo MD [address] [place] [address] MEDICATION REFILL Social History Tobacco Use Types [...] 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 Not [...] Diagnosis Essential hypertension Coronary artery disease involving [place] coronary artery of [place] heart with angina pectoris Type 2 diabetes [...] documented as of this encounter Care Teams Equipment Technician Relationship Specialty Start Date End Date Lisy Olmedo MD PCP - General 04/20/09 05/09/22 Sylvain Daniels MD PCP - General Family Medicine 05/10/22 02/14/24 None, Physician [address] [place] [address] PCP - General 02/15/24 05/16/24 Sylvain Daniels MD [address] [place] [address] PCP - Attributed-[employer] Commercial 05/15/22 10/01/22 Sylvain Dainels MD [address] [place] [address] PCP - Attributed-[employer] Commercial ST 02/12/23 04/01/23 Sylvain Daniels MD [address] [place] [address] PCP - General Family Medicine 05/17/24 05/19/24 Kiana Cole MD [address] [facility] [place] [address] PCP - General Internal Medicine 05/22/24 08/04/24 Sean Kyle MD [address] [place] [address] PCP - General Internal Medicine 08/05/24 09/15/24 Kiana Cole MD [address] [facility] [place] [address] PCP - General Internal Medicine 09/16/24 Sylvain Daniels MD Family Medicine 02/15/24 documented as of this encounter
--- OUTSIDE RECORDS SUMMARY | 2025-04-18 16:20 | XMS_ITS | Encounter Summary ---
Author Organization [facility] Address [address] [facility] [place] [address] Care Team Providers Care Product Coordinator Name Role Phone Lisy Olmedo MD Primary Care Provide r Sylvain Daniels MD Primary Care Provider + [phone] None, Physician Primary Care Provider Unavailabl e Sylvain Daniels MD Unavailable [phone] Sylvain Daniels MD Unavailable [phone] Sylvain Daniels MD Unavailable [phone] Sylvain Daniels MD Primary Care Provider + [phone] Kiana Cole MD Primary Care Provider Sean Kyle MD Primary Care Provider [phone] Kiana Cole MD Primary Care Provider Reason for Visit * Reason Onset Date Comments MEDICATION REFILL 11/19/2021 Encounter Details Date Type Department Care Team (Late st Contact Info) Description 11/19/2021 Refill formerly [facility] Medicine [address] [facility] [address] [place] [address] Lisy Olmedo MD [address] [place] [address] MEDICATION REFILL Social History Tobacco Use Types [...] 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 documented in this encounter Plan of [...] documented as of this encounter Care Teams Product Coordinator Relationship Specialty Start Date End Date Lisy Olmedo MD PCP - General 04/20/09 05/09/22 Sylvain Daniels MD PCP - General Family Medicine 05/10/22 02/14/24 None, Physician [address] [place] [address] PCP - General 02/15/24 05/16/24 Sylvain Daniels MD [address] [place] [address] PCP - Attributed-[employer] Commercial 05/15/22 10/01/22 Sylvain Daniels MD [address] [place] [address] PCP - Attributed-[employer] Commercial ST 02/12/23 04/01/23 Sylvain Daniels MD [address] [place] [address] PCP - General Family Medicine 05/17/24 05/19/24 Kiana Cole MD [address] [place] [address] PCP - General Internal Medicine 05/22/24 08/04/24 Sean Kyle MD [address] [place] [address] PCP - General Internal Medicine 08/05/24 09/15/24 Kiana Cole MD [address] [place] [address] PCP - General Internal Medicine 09/16/24 Sylvain Daniels MD Family Medicine 02/15/24 documented as of this encounter
--- OUTSIDE RECORDS SUMMARY | 2025-04-18 16:20 | XMS_ITS | Encounter Summary ---
Author Organization [facility] Health Address [address] [place] [address] Care Team Providers Care Afterschool Name Role Phone Lisy Olmedo MD Primary Care Provide r Encounter Details Date Type Department Care Team (Latest Contact Info) Description 01/29/2018 2:26 PM CDT Hospital Encounter [facility] [address] [place] [id number] Ruby Valdez MD [facility] [address] [place] [phone] [facility] Social History Tobacco Use [...] Recorded Patient Health Questionnaire-2 Score 0 03/11/2025 [facility] [place] [facility] Occupat ional Health - Occupational [...] 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 No / Unsure 10/18/2022 9:47 AM TAILING MACHINE OPERATOR documented as of this encounter [...] much Not at all 09/17/2023 1:24 PM TAILING MACHINE OPERATOR Alice Balbuena SN Feeling tired or having derek le energy Not at all 09/17/2023 1:24 PM TAILING MACHINE OPERATOR Alice Balbuena SN Poor appetite or overeating Not at all 09/17/2023 1: 24 PM TAILING MACHINE OPERATOR Alice Balbuena SN Feeling bad about yourself - or that you are a failure or have let yourself or your family down Not at all 09/17/2023 1:24 PM TAILING MACHINE OPERATOR Alice Moran SN Trouble concentrating on thi ngs, such as reading the newspaper or watching television Not at all 09/17/2023 1:24 PM TAILING MACHINE OPERATOR Alice Balbuena SN Moving or speaking so slowly that other people could have noticed? Or the opposite - being so fidgety or restless that you have been moving around a lot more than usual. Not at all 09/17/2023 1:24 PM TAILING MACHINE OPERATOR Alice Balbuena SN Thoughts that you would be b jones off or hurting yourself in some way Not at all 09/17/2023 1:24 PM TAILING MACHINE OPERATOR Alice Balbuena SN Patient Health Questionnaire -9 Score 0 09/17/2023 1:24 PM TAILING MACHINE OPERATOR Alice Balbuena SN * Over the last [...] documented as of this encounter Care Teams Afterschool Relationship Specialty Start Date End Date Lisy Olmedo MD PCP - General 04/20/09 05/09/22 documented as of this encounter
--- OUTSIDE RECORDS SUMMARY | 2025-04-18 16:20 | XMS_ITS | Encounter Summary ---
Author Organization [facility] Health Address [address] [facility] [place] [address] Care Team Providers Care Plant Guide Name Role Phone Sylvain Daniels MD Unavailable [phone] Kiana Cole MD Primary Care Provider Sean Kyle MD Primary Care Provider [phone] Kiana Cole MD Primary Care Provider Reason for Visit * Reason Onset Date Comments Future Appointment 06/10/2024 Encounter Details Date Type Department Care Team (Late st Contact Info) Description 06/10/2024 Telephone [facility] - Cardiology [address] [facility] [place] [address] Andrae Norton MD [address] [facility] [place]ARDIOVASC[place] [address] Future Appointment Social History Tobacco [...] Recorded Patient Health Questionnaire-2 Score 0 06/04/2024 [facility] - [...] place to sleep or slept in a snf (including now)? 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
--- OUTSIDE RECORDS SUMMARY | 2025-04-18 16:20 | XMS_ITS | Encounter Summary ---
Author Organization [facility] Address [address] [place] [address] Care Team Providers Care Electron Microprobe Operator Name Role Phone Lisy Olmedo MD Primary Care Provide r Sylvain Daniels MD Primary Care Provider + [phone] None, Physician Primary Care Provider Unavailabl e Sylvain Daniels MD Unavailable [phone] Sylvain Daniels MD Unavailable [phone] Sylvain Daniels MD Unavailable [phone] Sylvain Daniels MD Primary Care Provider + [phone] Kiana Cole MD Primary Care Provider Sean Kyle MD Primary Care Provider [phone] Kiana Cole MD Primary Care Provider Reason for Visit * Reason Onset Date Comments MEDICATION REFILL 05/13/2021 Encounter Details Date Type Department Care Team (Late st Contact Info) Description 05/13/2021 Refill [facility] Medicine [address] [facility] [address] [place] [address] Lisy Olmedo MD [address] [place] [id number] MEDICATION REFILL Social History Tobacco Use Types [...] 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 [...] documented as of this encounter Care Teams Electron Microprobe Operator Relationship Specialty Start Date End Date Lisy Olmedo MD PCP - General 04/20/09 05/09/22 Sylvain Daniels MD PCP - General Family Medicine 05/10/22 02/14/24 None, Physician [address] [place] [address] PCP - General 02/15/24 05/16/24 Sylvain Daniels MD [address] [place] [address] PCP - Attributed-[employer] 05/15/22 10/01/22 Sylvain Daniels MD [address] [place] [address] PCP - Attributed-[employer] ST 02/12/23 04/01/23 Sylvain Daniels MD [address] [place] [address] PCP - General Family Medicine 05/17/24 05/19/24 Kiana Cole MD [address] [place] [address] PCP - General Internal Medicine 05/22/24 08/04/24 Sean Kyle MD [address] [place] [phone] PCP - General Internal Medicine 08/05/24 09/15/24 Kiana Cole MD [address] [place] [address] PCP - General Internal Medicine 09/16/24 Sylvain Daniels MD Family Medicine 02/15/24 documented as of this encounter
--- OUTSIDE RECORDS SUMMARY | 2025-04-18 16:20 | XMS_ITS | Clinical Summary ---
Author Organization [facility] Address [address] [facility] [place] [address] Care Team Providers Care Deodorizer Operator Name Role Phone Sylvain Daniels MD Unavailable [phone] Kiana Cole MD Primary Care Provider Source Comments [facility],non-owned Affiliates and Associated Physician Practices is amultiple site organization consisting of ambulatory clinics and hospital sitesin [place], [place], [place] and [place]. This disclosure is being madepursuant to the Care Everywhere program and may not contain all information available regarding this patient. Last updated 18.[facility] Allergies Active Allergy Reactions Criticality Noted [...] with long-term current use of insulin 05/21/2024 residential (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 Mika SS et al. RAFFI. 2013;310(19): 3576-1865 (http://education.[employer]/faq/ITL001) CHOL/HDLC RATIO <5.0 (calc) 5.3High Non HDL [...] needs weight loss desperately and referred to ceramic sprayer asked him to stop naproxen Atherosclerosis of [...] Department Care Team Description 04/07/2025 Nurse Triage [facility] [address] [place] [phone] Kiana Cole MD Question 03/11/2025 8:40 AM CDT Office Visit [facility] [address] [place] [phone] Kiana Cole MD Medicare annual wellness visit, subsequent (Primary Dx); Essential hypertension; Coronary artery disease involving apache heart without angina pectoris, unspecified vessel or lesion type; S/P CABG x 3; Cerebrovascular accident (CVA), unspecified mechanism (HCC); Hemiparesis due to recent cerebrovascular accident (CVA) (HCC); Diplopia; Type 2 diabetes mellitus with diabetic polyneuropathy, with long-term current use of insulin (HCC) 03/11/2025 Travel 01/26/2025 Travel 01/21/2025 Nurse Triage [address], [address] [place] [address] Kiana Cole MD Order from [...] Recorded Patient Health Questionnaire-2 Score 0 03/11/2025 [facility] - Occupational [...] 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 Not on file Not on file Last Filed Vital Signs Vital Sign Reading Time Taken Comments Blood Pressure 110/76 03/11/2025 9:11 AM CDT Pulse 77 03/11/2025 9:11 AM CDT Temperature 36.7 C (98 F) 03/11/2025 9:11 AM CDT Respiratory Rate 10 08/29/2024 8:44 AM BRICK VENEER MAKER Oxygen Saturation 95% 03/11/2025 9:11 AM CDT [...] ENDOSCOPY, COLON, SCREENING Routine 11/12/2020 12:12 PM BRICK VENEER MAKER MICROALB/CREAT RATIO URINE RANDOM PANEL 07/23/2020 6:49 AM CDT HEPATITIS C AB W/RFLX TO HCV RNA QN PCR 07/23/2020 6:49 AM CDT from Last 3 Months or Most Recently Relevant to Health Maintenance Results * (ABNORMAL) HEMOGLOBIN A1C - POINT OF CARE (AMB) [facility] (03/11/2025) Pathologist [facility] Hemoglobin A1c POCT 6.3(A) 4.2 - 5.8 [...] - 26 mg/dL 06/04/2024 12:27 PM CDT [facility] Creatinine 0.78 0.71 - 1.16 mg/dL 06/04/2024 12:27 PM CDT [facility] Sodium 135(L) 136 - 145 mmol/L 06/04/2024 12:27 PM CDT [facility] Potassium 4.1 3.5 - 4.5 mmol/L 06/04/2024 12:27 PM CDT [facility] Chloride 102 98 - 107 mmol/L 06/04/2024 12:27 PM [facility] CO2 25 22 - 29 mmol/L 06/04/2024 12:27 PM [facility] Glucose 138(H) 70 - 115 mg/dL 06/04/2024 12:27 PM [facility] Calcium 9.6 8.4 - 10.2 mg/dL 06/04/2024 12:27 PM [facility] Anion Gap 8 6 - 16 06/04/2024 12:27 PM [facility] BUN/Creatinine Ratio 23 7 - 23 06/04/2024 12:27 PM [facility] Osmolality Calculated 284 275 - 295 mOsm/kg 06/04/2024 12:27 PM [facility] eGFR by CKD-EPI >90 >=90 mL/min/1.7 3 m2 06/04/2024 12:27 PM [facility] Blood BLOOD SPECIMEN / Unknown Lab Venipuncture / Unknown 06/04/2024 11:30 AM CDT 06/04/2024 11:51 AM [facility] Jason Coppola MD LAB - CHEMISTRY ORDERABLES Fin al Result [facility] [address] [place] [phone], [facility] [phone] * ENDOSCOPY, COLON, SCREENING (11/12/2020 12:12 PM BRICK VENEER MAKER) Report Endoscopy POC Endoscopy Department Report _ Patient Name: Yaya Vazquez Procedure Date: 11/12/2020 12:12 PM Date of : 1960 Classification: Outpatient Gender: Male Ethnicity: Not or Race: Black or _ Providers: Jodi Vernon MD, uLkas Gagnon (Fellow) Referring MD: Lisy Olmedo MD [...] colon K64.8, Other hemorrhoids CPT copyright 2019 [employer]. All rights reserved. The codes documented in this report are preliminary and upon crystal grinder review may be revised to meet current compliance requirements. Jodi Vernon MD 11/12/2020 12:57:40 PM Note Initiated On: 11/12/2020 12:12 PM Number of Addenda: [address] [address] [facility] 11/12/2020 12:1 2 PM BRICK VENEER MAKER Jodi Vernon MD GI PROCEDURE ORDERABLES Ed ited Result - Final [facility] * HEPATITIS C AB W/RFLX [...] a test for HCV RNA (test code 37903) is suggested. For additional information please refer to http://education.Atempo/faq/WPL01z6 (This link is being provided for informational/ educational purposes only.) Test Performed at: [facility] [id number] [place] [address] EH PURVIS DO,MPH 07/23/2020 6:49 AM CDT 07/23/2020 6:51 AM CDT Lisy Olmedo MD LAB - CHEMISTRY ORDER GISSEL Final Result Performing Organization Address [facility] de Phone Number [facility] [phone] [place] [address] * MICROALB/CREAT RATIO URINE RANDOM PANEL (07/23/2020 [...] within a diagnostic category. Test Performed at: [facility] [id number] [place] [address] EH PURVIS DO,MPH 07/23/2020 6:49 AM CDT 07/23/2020 6:51 AM CDT Lisy Olmedo MD LAB - URINE CHEMISTRY ORDERABLES Final Result Performing Organization Address [facility] Phone Number [facility] [address] [place] [address] from Last 3 Months or Most Recently Relevant to Health Maintenance Insurance MEDICARE [facility] MEDICARE Advance Directives Documents on File Type Date Recorded Patient Principal Data Architect Expl anation Durable HCPOA 09/17/2024 4:08 PM [...] Communication Jenn (POA) Mckee Sister Power of Splitter Operator (P OA) Care Teams Deodorizer Operator Relationship Specialty Start Date End Date Kiana Cole MD [address] [place] [address] PCP - General Internal Medicine 09/16/24 Sylvain Daniels MD Family Medicine 02/15/24
--- NOTE | 2025-04-18 17:16 | ED_ITS ---
HPI - General Adult General Chief complaint: Fall Stated complaint: back pain, fall earlier in week Time Seen by Provider: 04/18/25 15:47 History of Present Illness HPI narrative: Patient is a 64-year-old gentleman presents emergency department with chief complaint of fall. Patient reports that he has history of CVA and reports he walks with a walker the patient reports that he lost his footing fell and reports that he has pain in his left flank area the patient states that this hap pened several days ago reports that is not getting better it decided to come the emergency department for evaluation the patient denies head injury denies loss of consciousness Related Data Home Medications ?Medication ?Instructions ?Recorded ?Confirmed ?Last Taken ?Type ipratropium 0.5 mg-albuterol 3 mg 3 ml inhalation Q12H 11/27/24 11/28/24 Unknown History (2.5 mg base)/3 mL nebulization soln Allergies Allergy/AdvReac Type Severity Reaction Status Date / Time lisinopril Allergy Unknown Verified 03/01/25 19:30 penicillin G Allergy Swelling Verified 03/01/25 19:30 Review of Systems Review of Systems: A 10 system review of systems was completed on the patient and is negative except for what is stated in the HPI. Nursing and ancillary documentation was reviewed. [facility] Past Medical History Medical History CVA (cerebral vascular accident) January 2024 History of coronary artery disease Diabetes mellitus Hypertension Basilar artery stenosis Balance disorder 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 Impaired communication with impaired cognition Vision disturbance Brainstem stroke Surgical History Surgical History History of open heart surgery Family History Family History Other Controlled diabetes mellitus with hyperglycemia Social History Social History Smoking status: Current some day smoker Tobacco type: cigars Additional smoking assessment comments: 2 cigars a month Alcohol intake: former Substance use: never Substance use type: does not use Do You Feel Safe in your Home?: No Lack of Transportation: No Lack of Food: Never True Current Housing: I Have Housing Concerned About Future Housing: No Difficulty Paying Gas/Electric Bills: No Difficulty Paying for Meds: No Currently Unemployed: No Education: Bachelor's Degree Difficulty w/ Childcare or Family Care: No Living arrangements: with family Additional living arrangements comments: With sister Gender identity (if verbalized by the patient): Male Sexual Orientation (if Verbalized by the Patient): Straight or Heterosexual Spiritual care concerns: No Exam Narrative: GENERAL: Well-appearing, well-nourished, and in no acute distress. HEAD: Normocephalic, atraumatic. EYES: PERRLA and EOMI. ENT: Nares clear, no rhinorrhea or epistaxis. Mucous membranes moist. NECK: Supple. CHEST: Clear to auscultation. No respiratory distress. HEART: Regular rate and rhythm. No murmur heard. Normal peripheral pulses. ABDOMEN: Soft, nontender, nondistended, normal active bowel sounds. Back: There is tenderness to palpation in the left flank area EXTREMITIES: Normal range of motion. No edema. SKIN: Warm, dry, no rash. NEURO: No focal deficits. Alert and oriented x3. PSYCH: Normal mood and affect. Course Vital Signs Vital signs: Vital Signs Temperature 36.6 C 04/18/25 14:58 Pulse Rate 75 04/18/25 14:58 Respiratory Rate 18 04/18/25 14:58 Blood Pressure 145/120 H 04/18/25 14:58 Pulse Oximetry 96 04/18/25 14:58 Oxygen Delivery Room Air 04/18/25 14:58 Temperature 36.7 C 04/18/25 15:53 Pulse Rate 69 04/18/25 15:53 Respiratory Rate 18 04/18/25 15:53 Blood Pressure 122/79 04/18/25 15:53 Pulse Oximetry 97 04/18/25 15:53 Oxygen Delivery Room Air 04/18/25 14:58 Medical Decision Making MDM Narrative Medical decision making narrative: Differential diagnosis includes intra-abdominal infection, bruise, fracture CT scan showed evidence of a large amount of stool in the rectum the patient was offered rectal exam and enema to help evacuate the colon patient stated he did not want to have a rectal exam at this time and did not want to have a enema the patient was informed that this could get worse and the risk involving the stool not fully evacuating that could include perforation the patient expressed understanding this and stated that wanted to try to have a bowel movement at home patient was given a bottle of magnesium citrate was instructed to start a stool softener 3 times a day Vital Signs Vital Signs: Vital Signs Temperature 36.6 C 04/18/25 14:58 Pulse Rate 75 04/18/25 14:58 Respiratory Rate 18 04/18/25 14:58 Blood Pressure 145/120 H 04/18/25 14:58 Pulse Oximetry 96 04/18/25 14:58 Oxygen Delivery Room Air 04/18/25 14:58 Temperature 36.7 C 04/18/25 15:53 Pulse Rate 69 04/18/25 15:53 Respiratory Rate 18 04/18/25 15:53 Blood Pressure 122/79 04/18/25 15:53 Pulse Oximetry 97 04/18/25 15:53 Oxygen Delivery Room Air 04/18/25 14:58 Discharge Plan Discharge Clinical Impression: Acute flank pain, Fecal impaction Patient Disposition: Home Condition: Stable Instructions: Antibiotic Form, Flank Pain (ED), Fecal Impaction (ED) Patient Language: Turkmen Prescriptions: No Action ipratropium-albuterol 0.5 mg-3 mg(2.5 mg base)/3 mL Solution For Nebulization 3 ml INHALATION Q12H ondansetron 4 mg tablet,disintegrating 4 mg PO Q8H PRN (Reason: nausea and vomiting) Qty: 10 0RF benzonatate 100 mg Capsule 100 mg PO TID PRN (Reason: cough) Qty: 30 0RF cetirizine 10 mg Tablet 10 mg PO DAILY Qty: 30 0RF polyethylene glycol 3350 [Miralax] 17 gram Powder In Packet 17 g PO QAM Qty: 30 0RF atorvastatin 40 mg Tablet 40 mg PO HS Qty: 30 0RF buspirone 5 mg Tablet 5 mg PO BID Qty: 60 0RF acetaminophen 325 mg Tablet 650 mg PO Q6H PRN (Reason: unknown) Qty: 90 0RF insulin glargine [Lantus U-100 Insulin] 100 unit/mL solution 5 unit subcut QPM Qty: 10 0RF clopidogrel 75 mg Tablet 75 mg PO DAILY Qty: 30 0RF famotidine 20 mg Tablet 20 mg PO BID Qty: 60 0RF amlodipine 10 mg Tablet 10 mg PO DAILY Qty: 30 0RF aspirin 81 mg Tablet,Chewable 81 mg PO DAILY Qty: 30 0RF folic acid 1 mg Tablet 1 mg PO DAILY Qty: 30 0RF Multiple Vitamin-Minerals Tablet 1 tablet PO DAILY Qty: 30 0RF guaifenesin [Mucus Relief ER] 600 mg Tablet Extended Release 12hr 600 mg PO BID Qty: 60 0RF Follow-up/Referrals: UNKNOWN,DOCTOR [Primary Care Provider] - Time of Disposition: 17:59
--- NOTE | 2025-04-18 18:14 | PC.NURSE ---
Patient refusing enema at this time.
--- NOTE | 2025-04-18 18:38 | PC.NURSE ---
Family sttaes they want to take th emag citrate and the enema at home. Patient given mag citrate and enema and escorted to car via wheelchair. Patient helped into car by family.
== END 2025-04-18 18:41 | disposition home or self-care (01) ==
PROVIDERS: Emergency Provider Emergency Medicine
DX: R10.9 Unspecified abdominal pain (principal); K56.41 Fecal impaction; I69.991 Dysphagia following unspecified cerebrovascular disease; R13.10 Dysphagia, unspecified; I25.10 Atherosclerotic heart disease of native coronary artery without angina pectoris; I10 Essential (primary) hypertension; I65.1 Occlusion and stenosis of basilar artery; E11.9 Type 2 diabetes mellitus without complications; F17.290 Nicotine dependence, other tobacco product, uncomplicated; Z79.4 Long term (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; Z79.82 Long term (current) use of aspirin; Z79.899 Other long term (current) drug therapy; W18.39XA Other fall on same level, initial encounter
CPT/HCPCS: 74176; 99284

== ENCOUNTER 2025-08-14 16:43 | Emergency (ER) | payer MEDICARE, MEDICAID, SELFPAY ==
--- OUTSIDE RECORDS SUMMARY | 2018-01-29 14:26 | XMS_ITS | Encounter Summary ---
Author Organization [facility] Health Address [address] [place] [address] Care Team Providers Care Program Architect Name Role Phone Lisy Olmedo MD Primary Care Provide r Encounter Details Date Type Department Care Team (Latest Contact Info) Description 01/29/2018 2:26 PM CDT Hospital Encounter [facility] [address] [place] [id number] Ruby Valdez MD [facility] [address] [place] [phone] [facility] Social History Tobacco Use Types Packs/Day Years Used Date Smoking Tobacco: Some Days Cigars Started: 1997 Smokeless Tobacco: Never Comments:3-4 times / month-2 020 says 1x/month Alcohol Use Standard Drinks/Week Comments Yes 10 (1 standard drink = 0.6 oz pu re alcohol) 0-50+ a week AUDIT-C Answer Date Recorded Q1: How often do you have a drink containing alcohol? Never 05/25/2024 Q2: How many drinks containi ng alcohol do you have on a typical day when you are drinking? Patient does not drink Q3: How often do you have si x or more drinks on one occasion? Never 05/25/2024 Overall Financial Resource Strain (CARDIA) Answe r Date Recorded How hard is it for you to pa y for the very basics like food, housing, medical care, and heating? Not hard at all 05/26/2024 PHQ-2 Answer Date Recorded Patient Health Questionnaire-2 Score 0 03/11/2025 [facility] - Occupational Stress Questionnaire Answer Date Recorded Do you feel stress - tense, restless, nervous, or anxious, or unable to sleep at night because your mind is troubled all the time - these days? Not at all 05/26/2024 Hunger Vital Sign Answer Date Recorded Within the past 12 months, y ou worried that your food would run out before you got the money to buy more. Never true 05/26/20 24 Within the past 12 months, t he food you bought just didn't last and you didn't have money to get more. Never true 05/26/2024 PRAPARE - Transportation Answer Date Re corded In the past 12 months, has l ack of transportation kept you from medical appointments or from getting medications? No 05/15 In the past 12 months, has l ack of transportation kept you from meetings, work, or from getting things needed for daily living? No 05/26/2024 Housing Stability Vital Sign Answer Eric e Recorded In the last 12 months, was t here a time when you were not able to pay the mortgage or rent on time? No 05/26/2024 In the last 12 months, how many places have you lived? 2 05/26/2024 In the last 12 months, was t here a time when you did not have a steady place to sleep or slept in a fpc (including now)? No 05/26/2024 Education Answer Date Recorded What is the highest level of school you have completed or the highest degree you have received? 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 No / Unsure 10/18/2022 9:47 AM CASING IN LINE SETTER documented as of this encounter Functional Status * Functional and Cognitive Status Question Answer Date of Assessment Author Is person deaf or have serious hearing difficulty? No 05/26/2024 6:37 AM Triny Mcarthur RN Is person blind or have serious difficulty seeing? No 05/26/2024 6:37 AM Triny Wylie RN Does person have serious difficulty walking/climbing stairs? Yes 05/26/2024 6:37 AM Yonatan Wylie RN Does person have difficulty dressing/bathing? Yes 05/26/2024 6:37 AM Yonatan Wylie RN Does person have difficulty doing errands alone? Yes 05/26/2024 6:37 AM Artie Wylie RN Does person have difficulty concentrating/remembering/marlyn ing decisions? No 05/26/2024 6:37 AM Yonatan Wylie RN * Question Answer Date of Assessment Author Q1: How often do you have a drink containing alcohol? Never 05/25/2024 9:43 PM Yonatan Wylie RN Q2: How many drinks containing alcohol do you have on a typical day when you are drinking? Patient does not drink 05/25/2024 9:43 PM Triny Wylie RN Q3: How often do you have six or more drinks on one occasion? Never 05/25/2024 9:43 PM Yonatan Wylie RN * AUDIT-C Score Answer Date of Assessment Author 0 05/25/2024 9:43 PM Triny Mcarthur RN * Over the past 2 weeks, how often have you been bothered by any of the following problems? Question Answer Date of Assessment Author Little interest or pleasure in doing things Not at all 03/11/2025 9:12 AM Jaci Alba M A Feeling down, depressed, or hopeless Not at all 03/11/2025 9:12 AM Jaci Alba M A Patient Health Questionnaire -2 Score 0 03/11/2025 9:12 AM Jaci Alba M A * Question Answer Date of Assessment Author Trouble falling or staying asleep, or sleeping too much Not at all 09/17/2023 1:24 PM CASING IN LINE SETTER Alice Balbuena SN Feeling tired or having derek le energy Not at all 09/17/2023 1:24 PM CASING IN LINE SETTER Alice Balbuena SN Poor appetite or overeating Not at all 09/17/2023 1: 24 PM CASING IN LINE SETTER Alice Balbuena SN Feeling bad about yourself - or that you are a failure or have let yourself or your family down Not at all 09/17/2023 1:24 PM CASING IN LINE SETTER Alice Moran SN Trouble concentrating on thi ngs, such as reading the newspaper or watching television Not at all 09/17/2023 1:24 PM CASING IN LINE SETTER Alice Balbuena SN Moving or speaking so slowly that other people could have noticed? Or the opposite - being so fidgety or restless that you have been moving around a lot more than usual. Not at all 09/17/2023 1:24 PM CASING IN LINE SETTER Alice Balbuena SN Thoughts that you would be b jones off or hurting yourself in some way Not at all 09/17/2023 1:24 PM CASING IN LINE SETTER Alice Balbuena SN Patient Health Questionnaire -9 Score 0 09/17/2023 1:24 PM CASING IN LINE SETTER Alice Balbuena SN * Over the last 2 weeks, how often have you been bothered by any of the following problems? Question Answer Date of Assessment Author Feeling nervous, anxious, or on edge 0 02/13 9:12 AM Jaci Alba MA Not being able to stop or co ntrol worrying 0 03/11/2025 9:12 AM Jaci Alba M A Worrying too much about diff erent things 0 03/11/2025 9:12 AM Jaci Alba M A Trouble relaxing 0 03/11/2025 9:12 AM Jaci River MA Being so restless that it is hard to sit still 0 03/11/2025 9:12 AM CDT Jaci Buckner M A Becoming easily annoyed or irritable 0 02/13 9:12 AM CDT Jaci Buckner MA Feeling afraid as if somethi ng awful might happen 0 03/11/2025 9:12 AM CDT Jaci Buckner M A BENJI-7 Total Score 0 03/11/2025 9:12 AM CDT Jaci Buckner MA * Question Answer Date of Assessment Author In the past 30 days, have you wished you were or wished you could go to sleep and not wake up? No 05/25/2024 9:00 PM SHIKHAT Yonatan Fernández RN In the past 30 days, have you actually had any thoughts about killing yourself? No 05/25/2024 9:00 PM CDT Yonatan Fernández RN In the past 30 days, have you been thinking about how you might kill yourself? No 05/17/2024 11:12 AM CDT Ivonne Langley RN In the past 30 days, have you had these thoughts and had some intention of acting on them? No 05/17/2024 11:12 AM SHIKHAT Ashley Langley RN In the past 30 days, have you started to work out or worked out the details of how to kill yourself? Do you intend to carry out this plan? No 05/17/2024 11:12 AM SHIKHAT Ashley Langley RN documented as of this encounter Plan of Treatment Not on file documented as of this encounter Visit Diagnoses Not on filedocumented in this encounter Additional Health Concerns Infection Onset Date Last Indicated Resolved Time COVID-19 Under Investigation 07/26/2022 07/26/2022 07/26/2022 5:54 PM CDT COVID-19 Under Investigation 04/10/2024 04/10/2024 04/10/2024 2:48 PM CDT documented as of this encounter Care Teams Program Architect Relationship Specialty Start Date End Date Lisy Olmedo MD PCP - General 04/20/09 05/09/22 documented as of this encounter
--- OUTSIDE RECORDS SUMMARY | 2024-06-03 10:33 | XMS_ITS | CCD ---
Author Name Saroj DAVIS, Dr Amanda escalona Address [address] [place] [address] Phone Organization 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 Name Role Phone Saroj DAVIS, Dr Estrada Primary Care Provider Unav ailable Unavailable Chronic Care Management Unavaila ble Summary Purpose DataExchange Insurance Providers Payer name Policy type / Coverage type Covered libertarian ID Effective Begin Date Effective End Date [place] [id number] Unknown Family history Sister Diagnosis Age At Onset Hypertension Unknown Diabetes mellitus Type 2 Unknown Father Diagnosis Age At Onset Diabetes mellitus (disorder) Unknown Myocardial infarction Unknown CVA Unknown Mother Diagnosis Age At Onset Hypertension Unknown Ovarian cancer Unknown Social History Social History Element Codes Description Effec tive Dates Tobacco history Unknown Former User 05/21/2024 Alcohol history Unknown No longer drinks alcohol 05/21/2024 Illegal/Recreational drug history Unknown *Has never used illegal/recreational drugs 05/21/2024 DNR Order/ Advanced Directive Unknown Full Code 05/21/2024 Allergies, Adverse Reactions, Alerts Substance Reaction Codes Entered Date Inactivated Date Status *No known environmental allergies Unknown 05/21/2024 No Inactive Date Active LISINOPRIL angioedema RxNorm: 48907 05/21/2024 No Inactive D ate Active Penicillin *not specified Unknown 05/21/2024 No Inactive D ate Active *No known food allergies Unknown 05/21/2024 No Inactive Date Active Problems Condition Codes Effective Dates Condition St atus Asthma ICD-10: J45.909 ICD-9: 493.90 05/21/2024 Active At high risk for falls ICD-10: Z91.81 ICD-9: V15.88 05/21/2024 Active Coronary artery disease ICD-10: I25.10 ICD-9: 414.00 05/21/2024 Active Diabetes mellitus due to und erlying condition with diabetic neuropathy, with long-term current use of insulin ICD-10: E08.40 ICD-9: 249.60 05/21/2024 Active 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) ICD-10: I69.322 ICD-9: 438.13 05/21/2024 Active Dyslipidemia ICD-10: E78.5 ICD-9: 272.4 05/21/2024 Active Dysphagia as late effect of cerebrovascular accident (CVA) ICD-10: I69.391 ICD-9: 438.82 05/21/2024 Active Encounter for general adult medical examination with abnormal findings ICD-10: Z00.01 ICD-9: V70.0 05/21/2024 Active Gait abnormality ICD-10: R26.9 ICD-9: 781.2 05/21/2024 Active Gastrostomy present ICD-10: Z93.1 ICD-9: V44.1 05/21/2024 Active GERD (gastroesophageal reflu x disease) ICD-10: K21.9 ICD-9: 530.81 05/21/2024 Active H/O alcohol abuse ICD-10: F10.11 ICD-9: 305.03 05/21/2024 Active Hemiparesis due to recent cerebrovascular accident (CVA) ICD-10: I69.359 ICD-9: 438.20 05/21/2024 Active Hypertension with heart disease ICD-10: I11.9 ICD-9: 402.90 05/21/2024 Active assisted (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 ICD-10: Z79.4 05/21 Active Obesity (BMI 30.0-34.9) ICD-10: E66.9 ICD-9: 278.00 05/21/2024 Active MONTY (obstructive sleep apnea) ICD-10: G4 7.33 ICD-9: 327.23 05/21/2024 Active Urinary incontinence ICD-10: R32 ICD-9: 788.30 05/21/2024 Active Medications Medication Codes Instructions Start Date Stop Date Status Fill Instructions aspirin 81 mg chewable tablet RxNorm: 081228 Take 1 Tablet(s) Feeding Tube / PEG every day 08/13/20 25 Active atorvastatin 40 mg tablet RxNorm: 352075 Take 1 Tablet(s) Feeding Tube / PEG every night at bedtime 08/13/20 25 Active Senna Plus 8.6 mg-50 mg tablet RxNorm: 180143 Take 2 Tablet(s) Feeding Tube / PEG two times a day as needed for constipation 4 No Stop Date Active amlodipine 10 mg tablet RxNorm: 120898 Take 1 Tablet(s) Feeding Tube / PEG once daily 08/13/20 25 Active clopidogrel 75 mg tablet RxNorm: 775544 Take 1 Tablet(s) Feeding Tube / PEG once daily 08/13/20 25 Active Pen Needle 31 gauge x 5/16 RxNorm: Take 1 Pen Needle Subcutaneous three times a day 08/13/20 25 Active famotidine 20 mg tablet RxNorm: 815269 Take 1 Tablet(s) Feeding Tube / PEG two times a day 08/13/20 25 Active thiamine HCl (vitamin B1) 100 mg tablet RxNorm: 535984 Take 1 Tablet(s) Feeding Tube / PEG every day 08/13/20 25 Active folic acid 1 mg tablet RxNorm: 849462 Take 1 Tablet(s) Feeding Tube / PEG every day 08/13/20 25 Active multivit-mineral- folic acid 333 mcg-lutein 3 mg-zeaxant 0.67 mg tablet RxNorm: Take 1 Tablet(s) Oral every day 4 No Stop Date Active Lantus Solostar U-100 Insulin 100 unit/mL (3 mL) subcutaneous pen RxNorm: 494048 Administer 15 Unit(s) Subcutaneous every night at bedtime 08/13/20 25 Active loratadine 10 mg tablet RxNorm: 087875 Take 1 Tablet(s) Feeding Tube / PEG every day 08/13/20 25 Active albuterol sulfate HFA 90 mcg/actuation aerosol inhaler RxNorm: 5745395 Administer 2 Puff(s) Inhalation every 4 to 6 hours 4 01/16/20 25 Active Medication Administered No Medication Administered data Results Observation Observation Code Item Item Code Result Date Service Location COMPLETE CBC W/ DIFF WBC 04360 WBC 6690-2 6.8 K/ul 024 [facility] [address] [place] [address] COMPLETE CBC W/ DIFF WBC 45220 RBC 789-8 3.89 M/uL 024 [facility] [address] [place] [address] COMPLETE CBC W/ DIFF WBC 27823 Hemoglobin 718-7 10.6 g/dL 024 [facility] [address] [place] [address] COMPLETE CBC W/ DIFF WBC 80326 Hematocrit 4544-3 32.2 % 024 [facility] [address] [place] [address] COMPLETE CBC W/ DIFF WBC 27689 MCV 787-2 82.9 fL 024 [facility] [address] [place] [address] COMPLETE CBC W/ DIFF WBC 68248 MCH 785-6 27.3 pg 024 [facility] [address] [place] [address]48 COMPLETE CBC W/ DIFF WBC 24489 MCHC 786-4 32.9 g/dL 024 [facility] [address] [place] [address] 17082 COMPLETE CBC W/ DIFF WBC 42415 RDW 788-0 15.5 % 024 [facility] [address] [place] [address] 96178 COMPLETE CBC W/ DIFF WBC 13967 Platelet Count 777-3 303 K/uL 024 [facility] [address] [place] [address] COMPLETE CBC W/ DIFF WBC 34806 MPV 25939-3 8.0 fL 024 [facility] [address] [place] [address] 84323 COMPLETE CBC W/ DIFF WBC 28889 Neutrophils % 770-8 51.2 % 024 [facility] [address] [place] [address] 12735 COMPLETE CBC W/ DIFF WBC 82394 Lymphocytes % 736-9 39.8 % 024 [facility] [address] [place] [address] 21978 COMPLETE CBC W/ DIFF WBC 12937 Monocytes % 5905-5 6.7 % 024 [facility] [address] [place] [address] 80756 COMPLETE CBC W/ DIFF WBC 91324 Eosinophils % 713-8 2.1 % 024 [facility] [address] [place] [address] COMPLETE CBC W/ DIFF WBC 89722 Basophils% 706-2 0.2 % 024 [facility] [address] [place] [address] 959[address] COMPLETE CBC W/ DIFF WBC 69124 Absolute Neutrophil 751-8 3482 /ul 024 [facility] [address] [place] [address] 807[address] COMPLETE CBC W/ DIFF WBC 48480 Absolute Lymphocyte 44365-9 2706 /ul 024 [facility] [address] [place] [address] 88147 COMPLETE CBC W/ DIFF WBC 78951 Absolute Monocyte 742-7 456 /ul 024 [facility] [address] [place] [address] 58301 COMPLETE CBC W/ DIFF WBC 71815 Absolute Eosinophil 711-2 143 /ul 024 [facility] [address] [place] [address] 44094 COMPLETE CBC W/ DIFF WBC 95140 Absolute Basophil 704-7 14 /ul 024 [facility] [address] [place] [address] 67030 Direct LDL 06847 LDL-Direct 72177-0 117 mg/dL 024 [facility] [address] [place] [address] 51986 TRIGLYCERIDES 26110 Triglycerides 2571-8 173 mg/dL 024 [facility] [address] [place] [address] 17091 TRIGLYCERIDES 59628 VLDL 32008-9 35 mg/dL 024 [facility] [address] [place] [address] 09774 CHOLESTEROL 56318 Cholesterol 2093-3 177 mg/dL 024 [facility] [address] [place] [address] 10083 CHEM 14 (METABOLIC PANEL) 77478 Glucose 2345-7 138 mg/dL 024 [facility] [address] [place] [address] 19674 CHEM 14 (METABOLIC PANEL) 59047 BUN 3094-0 21 mg/dL 024 [facility] [address] [place] [address] 22399 CHEM 14 (METABOLIC PANEL) 02822 Creatinine 2160-0 0.8 mg/dL 024 [facility] [address] [place] [address] 31580 CHEM 14 (METABOLIC PANEL) 83722 BUN/Creat Ratio 3097-3 25.7 024 [facility] [address] [place] [address] CHEM 14 (METABOLIC PANEL) 32012 GFR Estimated 69153-9 97 mL/min/1. 73m2 024 [facility] [address] [place] [address] CHEM 14 (METABOLIC PANEL) 49950 Sodium 2951-2 139 mmol/L 024 [facility] [address] [place] [address] 29530 CHEM 14 (METABOLIC PANEL) 74543 Potassium 2823-3 4.0 mmol/L 024 [facility] [address] [place] [address] 99676 CHEM 14 (METABOLIC PANEL) 18413 Chloride 2075-0 98 mmol/L 024 [facility] [address] [place] [address] 10330 CHEM 14 (METABOLIC PANEL) 34153 Total CO2 2028-9 30 mmol/L 024 [facility] [address] [place] [address] 13847 CHEM 14 (METABOLIC PANEL) 10014 Anion Gap 1863-0 15.0 mEq/L 024 [facility] [address] [place] [address] 28065 CHEM 14 (METABOLIC PANEL) 18836 Calculated Serum Osmolality 82241-1 293 mOsm/kg 024 [facility] [address] [place] [address] 34030 CHEM 14 (METABOLIC PANEL) 51377 Albumin 23055-3 3.1 g/dL 024 [facility] [address] [place] [address] 14936 CHEM 14 (METABOLIC PANEL) 79176 Total Protein 2885-2 7.5 g/dL 024 [facility] [address] [place] [address] 03162 CHEM 14 (METABOLIC PANEL) 97671 Globulin 2336-6 4.4 g/dL 024 [facility] [address] [place] [address] 48343 CHEM 14 (METABOLIC PANEL) 80922 Albumin/Globulin Ratio 1759-0 0.7 024 [facility] [address] [place] [address] 62061 CHEM 14 (METABOLIC PANEL) 18624 ALK PHOS 6768-6 66.00 U/L 024 [facility] [address] [place] [address] 84559 CHEM 14 (METABOLIC PANEL) 12663 SGOT/AST 1920-8 13 U/L 024 [facility] [address] [place] [address] 37570 CHEM 14 (METABOLIC PANEL) 16086 SGPT/ALT 1743-4 19 U/L 024 [facility] [address] [place] [address] CHEM 14 (METABOLIC PANEL) 15368 Total Bilirubin 1975-2 0.3 mg/dL 024 [facility] [address] [place] [address] CHEM 14 (METABOLIC PANEL) 36602 Calcium 36540-2 9.4 mg/dL 024 [facility] [address] [place] [address] CHEM 14 (METABOLIC PANEL) 47225 Corrected Calcium 00271-4 10.3 mg/dL 024 [facility] [address] [place] [address] PTH 06247 PTH 2731-8 21.7 pg/mL 024 [facility] [address] [place] [address] VITAMIN B-12 60849 Vitamin B12 2132-9 609 pg/mL 05/22 024 [facility] [address] [place] [address] [id number] IN [facility]8 Glyco HGB A1C 31741-3 7.0 % 024 [facility] [address] [place] [address] [id number] IN [facility]84 eAG 88168-9 154 mg/dL 024 [facility] [address] [place] [address] HDL - CHOL 80735 HDL 2085-9 30 mg/dL 024 [facility] [address] [place] [address] HDL - CHOL 19443 CHD 07792-6 17 % 024 [facility] [address] [place] [address] TSH 63086 TSH 43815-2 2.540 uIU/mL 024 [facility] [address] [place] [address] Procedures Procedure Codes Date MED LIST DOCD IN [facility] CPT-4: 1159F 05/21/2024 RVW MEDS BY RX/DR IN [facility] CPT-4: 1160F 2023 Discharge Meds Reconciled w/ Current Med list CP T-4: 1111F 05/21/2024 Amnt pain noted; none prsnt CPT-4: 1126F 04/2024 Screening for clinical depre ssion is negative, follow-up plan not required CPT-4: G8510 05/21/2024 Patient Screened for Future Fall Risk CPT-4: 110 0F 05/21/2024 Fall plan of care doc'd CPT-4: 0518F 05/21/20 24 [id number] CPT-4: 91682 Unknown Vital Signs Date Vital 05/21/2024 Blood Pressure 1: 135/82 Code: 8480-6 BMI: 32.3 Code: 90399-8 Heart Rate 1: 84 bpm Height: 6'4 Code: 8302-2 Respiratory Rate: 17 bpm SpO2: 93% Temperature: 35.6 (C) / 96.0 (F) Weight: 265 lbs Code: 26536-1 Reason For Visit Reason For Visit Effective Dates Notes new patient visit 05/21/2024 Encounters Encounter Performer Location Location Address Codes Eric e ([id number]) Home or Residence 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 - Moderate Level, 60 mins Diagnosis: Hemiparesis due to recent cerebrovascular accident (CVA)[ICD10: I69.359] Diagnosis: Gastrostomy present[ICD10: Z93.1] Diagnosis: Diabetes mellitus due to underlying condition with diabetic neuropathy, with long-term current use of insulin[ICD10: E08.40] Diagnosis: Hypertension with heart disease[ICD10: I11.9] Diagnosis: Dysphagia as late effect of cerebrovascular accident (CVA)[ICD10: I69.391] Diagnosis: assisted (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[ICD10: Z79.4] Diagnosis: 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] Diagnosis: Asthma[ICD10: J45.909] Diagnosis: Coronary artery disease[ICD10: I25.10] Diagnosis: H/O alcohol abuse[ICD10: F10.11] Diagnosis: At high risk for falls[ICD10: Z91.81] Diagnosis: Dyslipidemia[ICD10: E78.5] Diagnosis: GERD (gastroesophageal reflux disease)[ICD10: K21.9] Diagnosis: MONTY (obstructive sleep apnea)[ICD10: G47.33] Diagnosis: Obesity (BMI 30.0-34.9)[ICD10: E66.9] Diagnosis: Urinary incontinence[ICD10: R32] Diagnosis: Gait abnormality[ICD10: R26.9] Diagnosis: Encounter for general adult medical examination with abnormal findings[ICD10: Z00.01] Sean Kyle [facility] [address] [place] [address] CPT-4: 78044 Plan of Care Planned Activity Notes Codes Status Date Patient Education: Patient Medication Summary Completed 05/21/2024 Patient Education: Obesity Completed 05/21/2024 Referral: Pending Medical Records Information M requires Consent when requesting records, there i currently no consent on file for the patient can we get consent uploaded to [facility] so we can finish the request. thank you On Hold Awaiting Documentation Referral: [facility] WPtel: [address] [place] [address] [address] [id number] 05/22/2024 order faxed to agency. Order Faxed Referral: Pending Membership Sales Advisor Referral Information lvm , provided the above agency information. Instructed to call O&R department if they do not hear back from agency withing 7-10 days.05/22/24 no answer, lvm to cb Spoke with office HVS Referral faxed to:[email or web address] Agency Name: _[email or web address] Agency Address:_ [address], [place] [address] Agency Phone #:_ Agency _ Agency will contact the patient to schedule appointment. Order Faxed Referral: Pending Incontinence Supplies Order Information called and spoke to Nanette woods advised contact number given Order Faxed Referral: Sean Kyle WPtel: [address] [place], [place] [id number] Referral Order Faxed Referral: Pending DME Order Information called and spoke to merced woods advised Not Taken Up - Patient Insurance Medical Equipment No Medical Equipment data Advance Directives No Advance Directive data
--- OUTSIDE RECORDS SUMMARY | 2024-07-27 19:00 | XMS_ITS | CCD ---
Author Organization Unknown Care Team Providers Care Watch Crystal Molder Name Role Phone Saroj DAVIS, Dr Estrada Primary Care Provider Unav ailable Unavailable Chronic Care Management Unavaila ble Summary Purpose DataExchange Insurance Providers Payer name Policy type / Coverage type Covered republican ID Effective Begin Date Effective End Date [place] [id number] Unknown Family history Sister Diagnosis Age At [...] No Inactive Date Active LISINOPRIL angioedema RxNorm: 57141 05/21/2024 No Inactive D ate Active Penicillin *not specified Unknown 05/21/2024 No Inactive D ate Active *No known food allergies Unknown 05/21/2024 No Inactive Date Active Problems Condition Codes Effective Dates Condition St atus Asthma ICD-10: J45.909 ICD-9: 493.90 07/24/2024 Active At high risk for falls ICD-10: Z91.81 ICD-9: V15.88 05/21/2024 Active Coronary artery disease ICD-10: I25.10 ICD-9: 414.00 07/24/2024 Active Diabetes mellitus due to und erlying condition with diabetic neuropathy, with long-term current use of insulin ICD-10: E08.40 ICD-9: 249.60 05/21/2024 Active Diplopia ICD-10: H53.2 ICD-9: 368.2 07/24/2024 Active 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) ICD-10: I69.322 ICD-9: 438.13 07/24/2024 Active Dyslipidemia ICD-10: E78.5 ICD-9: 272.4 07/24/2024 Active Encounter for general adult medical examination with abnormal findings ICD-10: Z00.01 ICD-9: V70.0 05/21/2024 Active Gait abnormality ICD-10: R26.9 ICD-9: 781.2 05/21/2024 Active Gastrostomy present ICD-10: Z93.1 ICD-9: V44.1 07/24/2024 Active GERD (gastroesophageal reflu x disease) ICD-10: K21.9 ICD-9: 530.81 05/21/2024 Active Haemophilus influenza type B vaccination administered ICD-10: Z23 ICD-9: V04.81 07/24/2024 Active Hemiparesis due to recent cerebrovascular accident (CVA) ICD-10: I69.359 ICD-9: 438.20 07/24/2024 Active Hypertension with heart disease ICD-10: I11.9 ICD-9: 402.90 07/24/2024 Active long term (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 ICD-1 0: Z79.4 ICD-9: V58.67 06/24/2024 Active Obesity (BMI 30.0-34.9) ICD-10: E66.9 ICD-9: 278.00 05/21/2024 Active MONTY (obstructive sleep apnea) ICD-10: G4 7.33 ICD-9: 327.23 05/21/2024 Active Paroxysmal cough ICD-10: R05.8 ICD-9: 786.2 06/24/2024 Active Colon cancer screening ICD-10: Z12.11 ICD-9: V76.51 06/24/2024 Active Dysphagia as late effect of cerebrovascular accident (CVA) ICD-10: I69.391 ICD-9: 438.82 06/24/2024 Active H/O alcohol abuse ICD-10: F10.11 ICD-9: 305.03 06/24/2024 Active Syncope ICD-10: R55 ICD-9: 780.2 06/24/2024 Active residential (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 ICD-10: Z79.4 05/21 Active Urinary incontinence ICD-10: R32 ICD-9: 788.30 05/21/2024 Active Medications Medication Codes Instructions Start Date Stop Date Status Fill Instructions Senna Plus 8.6 mg-50 mg tablet RxNorm: 921723 Take 2 Tablet(s) Oral two times a day as needed for constipation 4 07/28/20 24 Inactive multivitamin tablet RxNorm: Take 1 Tablet(s) Oral every day 4 10/20/19 26 Active buspirone 5 mg tablet RxNorm: 497979 Take 1 Tablet(s) Oral two times a day 4 10/16/19 26 Active polyethylene glycol 3350 17 gram/dose oral powder RxNorm: 489552 Use 1 Unit Dose Oral every day Mix 17g (one capful) with 8oz liquid. Hold for loose stools. 08/17/20 25 Active ipratropium 0.5 mg-albuterol 3 mg (2.5 mg base)/3 mL nebulization soln RxNorm: 4777965 Administer 3 Milliliter(s) Inhalation every 6 hours as needed for shortness of breath 4 06/24/20 24 Inactive buspirone 5 mg tablet RxNorm: 043284 Take 1 Tablet(s) Oral three times a day 4 07/23/20 24 Inactive aspirin 81 mg chewable tablet RxNorm: 586316 Take 1 Tablet(s) Feeding Tube / PEG every day 08/13/20 25 Active atorvastatin 40 mg tablet RxNorm: 374139 Take 1 Tablet(s) Feeding Tube / PEG every night at bedtime 08/13/20 25 Active Senna Plus 8.6 mg-50 mg tablet RxNorm: 414400 Take 2 Tablet(s) Feeding Tube / PEG two times a day as needed for constipation 4 07/29/20 24 Inactive amlodipine 10 mg tablet RxNorm: 318547 Take 1 Tablet(s) Feeding Tube / PEG once daily 4 08/13/20 25 Active clopidogrel 75 mg tablet RxNorm: 891260 Take 1 Tablet(s) Feeding Tube / PEG once daily 08/13/20 25 Active Pen Needle 31 gauge x 5/16 RxNorm: Take 1 Pen Needle Subcutaneous three times a day 08/13/20 25 Active famotidine 20 mg tablet RxNorm: 198435 Take 1 Tablet(s) Feeding Tube / PEG two times a day 08/13/20 25 Active thiamine HCl (vitamin B1) 100 mg tablet RxNorm: 830402 Take 1 Tablet(s) Feeding Tube / PEG every day 08/13/20 25 Active folic acid 1 mg tablet RxNorm: 568731 Take 1 Tablet(s) Feeding Tube / PEG every day 08/13/20 25 Active multivit-mineral -folic acid 333 mcg-lutein 3 mg-zeaxant 0.67 mg tablet RxNorm: Take 1 Tablet(s) Oral every day 4 No Stop Date Active Lantus Solostar U-100 Insulin 100 unit/mL (3 mL) subcutaneous pen RxNorm: 763217 Administer 15 Unit(s) Subcutaneous every night at bedtime 08/13/20 25 Active loratadine 10 mg tablet RxNorm: 828143 Take 1 Tablet(s) Feeding Tube / PEG every day 08/13/20 25 Active albuterol sulfate HFA 90 mcg/actuation aerosol inhaler RxNorm: 5139272 Administer 2 Puff(s) Inhalation every 4 to 6 hours 01/16/20 25 Active Medication Administered No Medication Administered data Procedures Procedure Codes Date Annual Wellness Visit (Initial Visit) CPT-4: G04 38 07/24/2024 FLU VACC CELL CULT PRSV FREE CPT-4: 53285 07/2024 Cologuard CPT-4: 56780 Unknown [id number] CPT-4: 96263 Unknown Gastroenterology Referral SNOMED CT: [id number] CPT-4: R12 Unknown Reason For Visit No Reason For Visit data Plan of Care Planned Activity Notes Codes Status Date Referral: [facility] WPtel: [address] Referral faxed to: Agency Name: [employer] Agency Address: [address], [place] [address] Agency Phone #: [phone] Agency Agency will contact the patient to schedule Order Faxed Referral: Pending Medical Records Information M requires Consent when requesting records, there i currently no consent on file for the patient can we get consent uploaded to [facility] so we can finish the request. thank you On Hold Awaiting Documentation Referral: [facility] WPtel: [address] [place] [phone] [facility]- [facility] Ruiz [address] [facility], [facility] [address], [place] [address] Reprocess Referral: [facility] WPtel: [address] [place] [address] 05/22/2024 order faxed to agency. Not Taken Up Referral: Pending Hand Quilter Referral Information lvm , provided the above agency information. Instructed to call O&R department if they do not hear back from agency withing 7-10 days.05/22/24 no answer, lvm to cb Spoke with office HVS Referral faxed to:[facility] Agency Name: _[facility] Agency Address:_ [address], [place] [address] Agency Phone #:_ Agency _ Agency will contact the patient to schedule appointment. Order Faxed Referral: Sean Kyle WPtel: [phone] [id number] Agency contacted, confirmed they're accepting new patients. They will run insurance once order is received Referral faxed to: Agency Name: [facility] Agency Address: [address] , [place] [address], [place] [address] Agency Phone #:[phone] Agency Agency will ship to patient. pt has referral info Order Faxed Referral: [facility] WPtel: [address] [facility] [place][note 2][id number] Notes & referral faxed to [facility] [phone] Order Faxed Referral: Pending Incontinence Supplies Order Information called and spoke to Nanette patient JUDY an advised contact number given Order Faxed Referral: Sean Kyle WPtel: [address] [place], [place] [phone] 06-24-2024. Called pt. spoke with Jenn Do the sister/POA which stated pt. only received the insulin not the supplies. Re-f/u with agency per POA request spoke with Princess the Rep. which stated pt. was notified back in May 29 2024. which they spoke with pt. sister/POA which stated pt. do not have an secondary insurance and is currently in the hospital. Per Rep. Sánchez pt. sister was told pt. would have an co-pay since no secondary insurance and for her to call them back soon as pt. is out of the hospital. Per Princess pt. sister/POA Jenn agree and never return a call. DME Company Confirmed Referral: Pending DME Order Information called and spoke to patient ANAYELIKirill Rahul woods advised Not Taken Up - Patient Insurance Medical Equipment No Medical Equipment data Advance Directives No Advance Directive data
--- OUTSIDE RECORDS SUMMARY | 2024-07-29 16:18 | XMS_ITS | CCD ---
Author Name Saroj DAVIS, Dr Amanda escalona Address [address] [place] [id number] Phone Organization [employer] [facility] Phone Care Team Providers Care Caul Fat Puller Name Role Phone Saroj DAVIS, Dr Estrada Primary Care Provider Unav ailable Unavailable Chronic Care Management Unavaila ble Summary Purpose DataExchange Insurance Providers Payer name Policy type / Coverage type Covered constitution party ID Effective Begin Date Effective End Date [place] [id number] Unknown Family history Sister Diagnosis Age At [...] No Inactive Date Active LISINOPRIL angioedema RxNorm: 69656 05/21/2024 No Inactive D ate Active Penicillin [...] disease ICD-10: I11.9 ICD-9: 402.90 07/24/2024 Active 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 Hold for loose stools. 4 08/17/20 25 Active ipratropium 0.5 mg-albuterol 3 mg (2.5 mg base)/3 mL nebulization soln RxNorm: 9163576 Administer 3 Milliliter(s) Inhalation every 6 hours as needed for shortness of breath 4 06/24/20 24 Inactive buspirone 5 mg tablet RxNorm: 397702 Take 1 Tablet(s) Oral three times a day 4 07/23/20 24 Inactive aspirin 81 mg chewable tablet RxNorm: 793159 Take 1 Tablet(s) Feeding Tube / PEG every day 4 08/13/20 25 Active atorvastatin 40 mg tablet RxNorm: 779892 Take 1 Tablet(s) Feeding Tube / PEG every night at bedtime 08/13/20 25 Active Senna Plus 8.6 mg-50 mg tablet RxNorm: 457201 Take 2 Tablet(s) Feeding Tube / PEG two times a day as needed for constipation 4 07/29/20 24 Inactive amlodipine 10 mg tablet RxNorm: 809896 Take 1 Tablet(s) Feeding Tube / PEG once daily 4 08/13/20 25 Active clopidogrel 75 mg tablet RxNorm: 521688 Take 1 Tablet(s) Feeding Tube / PEG once daily 4 08/13/20 25 Active Pen Needle 31 gauge x 5/16 RxNorm: Take 1 Pen Needle Subcutaneous three times a day 4 08/13/20 25 Active famotidine 20 mg tablet RxNorm: 201327 Take 1 Tablet(s) Feeding Tube / PEG two times a day 08/13/20 25 Active thiamine HCl (vitamin B1) 100 mg tablet RxNorm: 966617 Take 1 Tablet(s) Feeding Tube / PEG every day 08/13/20 25 Active folic acid 1 mg tablet RxNorm: 417515 Take 1 Tablet(s) Feeding Tube / PEG every day 08/13/20 25 Active multivit-mineral -folic acid 333 mcg-lutein 3 mg-zeaxant 0.67 mg tablet RxNorm: Take 1 Tablet(s) Oral every day 4 No Stop Date Active Lantus Solostar U-100 Insulin 100 unit/mL (3 mL) subcutaneous pen RxNorm: 263085 Administer 15 Unit(s) Subcutaneous every night at bedtime 08/13/20 25 Active loratadine 10 mg tablet RxNorm: 733590 Take 1 Tablet(s) Feeding Tube / PEG every day 08/13/20 25 Active albuterol sulfate HFA 90 mcg/actuation aerosol inhaler RxNorm: 0715165 Administer 2 Puff(s) Inhalation every 4 to 6 hours 01/16/20 25 Active Medication Administered No Medication Administered data Procedures Procedure Codes Date Annual Wellness Visit (Initial Visit) CPT-4: G04 38 07/24/2024 FLU VACC CELL CULT PRSV FREE CPT-4: 13021 07/2024 Most recent A1c = 7.0% and < 8.0% CPT-4: 3051F 07/24/2024 FLU VACC CELL CULT PRSV FREE CPT-4: 88443 07/2024 Admin flu virus vaccine CPT-4: G0008 07/24/20 24 LEVEL OF ACTIVITY ASSESS CPT-4: 1003F 024 PT SCRN TBCO ID NON USER CPT-4: G9903 07/15 Current tobacco non-user CPT-4: 1036F 024 Amnt pain noted; none prsnt CPT-4: 1126F 07/15 MED LIST DOCD IN [facility] CPT-4: 1159F 07/24/2024 RVW MEDS BY RX/DR IN [facility] CPT-4: 1160F 2023 Patient Screened for Future Fall Risk CPT-4: 110 0F 07/24/2024 Fall plan of care doc'd CPT-4: 0518F 07/24/20 24 Cologuard CPT-4: 01239 Unknown [id number]-Weoyrbvwkojcpsu CPT-4: 77292 Unknown Gastroenterology Referral SNOMED CT: [id number] CPT-4: R12 Unknown Vital Signs Date Vital 07/24/2024 Blood Pressure 1: 120/82 Code: 8480-6 BMI: 32.3 Code: 79226-5 Heart Rate 1: 81 bpm Height: 6'4 Code: 8302-2 Respiratory Rate: 16 bpm SpO2: 97% Temperature: 36.1 (C) / 97.0 (F) Weight: 265 lbs Code: 22135-2 Reason For Visit Reason For Visit Effective Dates Notes annual wellness visit 07/24/2024 Encounters Encounter Performer Location Location Address Codes Eric e ([id number]) Annual Wellness Visit (Initial Visit) Diagnosis: Encounter for general adult medical examination with abnormal findings[ICD10: Z00.01] Diagnosis: Haemophilus influenza type B vaccination administered[ICD10: Z23] Diagnosis: Diplopia[ICD10: H53.2] Diagnosis: Diabetes mellitus due to underlying condition with diabetic neuropathy, with long-term current use of insulin[ICD10: E08.40] Diagnosis: Coronary artery disease[ICD10: I25.10] Diagnosis: Hemiparesis due to recent cerebrovascular accident (CVA)[ICD10: I69.359] Diagnosis: Hypertension with heart disease[ICD10: I11.9] Diagnosis: Dyslipidemia[ICD10: E78.5] Diagnosis: 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] Diagnosis: Obesity (BMI 30.0-34.9)[ICD10: E66.9] Diagnosis: MONTY (obstructive sleep apnea)[ICD10: G47.33] Diagnosis: Paroxysmal cough[ICD10: R05.8] Diagnosis: Gait abnormality[ICD10: R26.9] Diagnosis: Asthma[ICD10: J45.909] Diagnosis: GERD (gastroesophageal reflux disease)[ICD10: K21.9] Diagnosis: Gastrostomy present[ICD10: Z93.1] 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: 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[ICD10: Z79.4] Diagnosis: At high risk for falls[ICD10: Z91.81] [facility] [address] [place] [address] CPT-4: G0438 4 (55808) Home or Residence Visit Est Pt - Low Level, 30 mins Diagnosis: [ICD9: ] Diagnosis: [ICD9: ] Diagnosis: [ICD9: ] Diagnosis: [ICD9: ] Diagnosis: [ICD9: ] Diagnosis: [ICD9: ] Diagnosis: [ICD9: ] Diagnosis: [ICD9: ] Diagnosis: [ICD9: ] Diagnosis: [ICD9: ] Diagnosis: [ICD9: ] Diagnosis: [ICD9: ] Diagnosis: [ICD9: ] Diagnosis: [ICD9: ] Diagnosis: [ICD9: ] Diagnosis: [ICD9: ] Diagnosis: [ICD9: ] Diagnosis: [ICD9: ] [facility] Office [address] [place] [phone] CPT-4: 86715 4 Plan of Care Planned Activity Notes Codes Status Date Visit Plan: I attest that I have made every attempt to complete all the required assessments including but not limited to interviewing additional independent historians, formal chart review of past notes and all available medical records at my disposal. I69.359-438.20 Hemiparesis due to recent cerebrovascular accident (CVA): Has Rt sided weakness. On PT E08.40-249.60 Diabetes mellitus due to underlying condition with diabetic neuropathy, with long-term current use of insulin: Stable Hba1c 7.0. 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 On ST Z00.01-V70.0 Encounter for general adult medical examination with abnormal findings Z23-V04.81 Haemophilus influenza type B vaccination administered I25.10-414.00 Coronary artery disease: stable. On ASA, Lipitor E78.5-272.4 Dyslipidemia: Stable. On Lipitor E66.9-278.00 Obesity (BMI 30.0-34.9) G47.33-327.23 MONTY (obstructive sleep apnea): non compliant to CPAP Z93.1-V44.1 Gastrostomy present: Awaiting removal. Consult to GI placed R05.8-786.2 Paroxysmal cough R26.9-781.2 Gait abnormality: [facility] . On PT progressing J45.909-493.90 Asthma K21.9-530.81 GERD (gastroesophageal reflux disease): On Pepcid 07/24/2024 Patient Education: Obesity Completed 07/24/2024 Patient Education: AWV Preventative Screening Schedule 2020 Completed 07/24/2024 Patient Education: Patient Medication Summary Completed 07/24/2024 Appointment: Sean Kyle WPtel: [address] [place], [place] [phone] [id number] 06/24/2024 Appointment: Oscar Hoyt WPtel: [address] [facility] [address] [id number] [place] Phone Call 06/20/2024 Appointment: Mony Moseley WPtel: [address] [place], [place] [phone] [place] Phone Call 06/06/2024 Appointment: Mony Moseley WPtel: [address] [place], [place] [phone] [place] Phone Call 05/26/2024 Appointment: Sean Kyle WPtel: [address] [place], [place] [phone] [id number] 05/21/2024 Referral: [facility] WPtel: [address] [place] [id number] [place] Referral faxed to: Agency Name: [facility] Agency Address: [address], [place] [address] Agency Phone #: [phone] Agency Agency will contact the patient to schedule Order Faxed Referral: Pending Medical Records Information M requires Consent when requesting records, there i currently no consent on file for the patient can we get [facility] so we can finish the request. thank you On Hold Awaiting Documentation Referral: [facility] WPtel: [phone] [place] [phone] [facility]- Dr Ruiz [address] [facility], [facility] [address], [place] [address] [employer]cess Referral: [facility] WPtel: [address] [place] [address] 05/22/2024 order faxed to agency. Not Taken Up Referral: Pending [employer] Referral Information lvm , provided the above agency information. Instructed to call O&R department if they do not hear back from agency withing 7-10 days.05/22/24 no answer, lvm to cb Spoke with office [facility]VS Referral faxed to:[facility] Agency Name: _[facility] Agency Address:_ [address], [place] [address] Agency Phone #:_ Agency _ Agency will contact the patient to schedule appointment. Order Faxed Referral: Sean Kyle WPtel: [address] [facility] Agency contacted, confirmed they're accepting new patients. They will run insurance once order is received Referral faxed to: Agency Name: [facility] Agency Address: [address], [place] [address] Agency Phone #:[phone] Agency Agency will ship to patient. pt has referral info Order Faxed Referral: [facility] WPtel: [address] [facility] Notes & referral faxed to [facility] [phone] Order Faxed Referral: Pending [employer] Supplies Order Information called and spoke to Nanette patient JUDY peggy advised contact number given Order Faxed Referral: Sean Kyle WPtel: [address] [place], [place] [phone] 06-24-2024. Called pt. spoke with Jenn Do [...] Order Information called and spoke to patient JUDY Rahul woods advised Not Taken Up - Patient Insurance Instructions Comment Date Fall precaution Postural change. I attest that I have made every attempt to complete all the required assessments including but not limited to interviewing additional independent historians, formal chart review of past notes and all available medical records at my disposal. I69.359-438.20 Hemiparesis due to recent cerebrovascular accident (CVA): Has Rt sided weakness. On PT E08.40-249.60 Diabetes mellitus due to underlying condition with diabetic neuropathy, with long-term current use of insulin: Stable Hba1c 7.0. 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 On ST Z00.01-V70.0 Encounter for general adult medical examination with abnormal findings Z23-V04.81 Haemophilus influenza type B vaccination administered I25.10-414.00 Coronary artery disease: stable. On ASA, Lipitor E78.5-272.4 Dyslipidemia: Stable. On Lipitor E66.9-278.00 Obesity (BMI 30.0-34.9) G47.33-327.23 MONTY (obstructive sleep apnea): non compliant to CPAP Z93.1-V44.1 Gastrostomy present: Awaiting removal. Consult to GI placed R05.8-786.2 Paroxysmal cough R26.9-781.2 Gait abnormality: [facility] . On PT progressing J45.909-493.90 Asthma K21.9-530.81 GERD (gastroesophageal reflux disease): On Pepcid 07/24/2024 Medical Equipment No Medical Equipment data Advance Directives No Advance Directive data
--- OUTSIDE RECORDS SUMMARY | 2024-07-29 16:18 | XMS_ITS | CCD ---
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 Role Phone Saroj DAVIS, Dr Estrada Primary Care Provider Unav ailable Unavailable Chronic Care Management Unavaila ble Summary Purpose DataExchange Insurance Providers Payer name Policy type / Coverage type Covered constitution party ID Effective Begin Date Effective End Date [place] [id number] Unknown Family history Sister Diagnosis Age At [...] No Inactive Date Active LISINOPRIL angioedema RxNorm: 24916 05/21/2024 No Inactive D ate Active Penicillin *not specified Unknown 05/21/2024 No Inactive D ate Active *No known food allergies Unknown 05/21/2024 No Inactive Date Active Problems Condition Codes Effective Dates Condition St atus Asthma ICD-10: J45.909 ICD-9: 493.90 06/24/2024 Active At high risk for falls ICD-10: Z91.81 ICD-9: V15.88 05/21/2024 Active Colon cancer screening ICD-10: Z12.11 ICD-9: V76.51 06/24/2024 Active Coronary artery disease ICD-10: I25.10 ICD-9: 414.00 06/24/2024 Active Diabetes mellitus due to und erlying condition with diabetic neuropathy, with long-term current use of insulin ICD-10: E08.40 ICD-9: 249.60 05/21/2024 Active 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) ICD-10: I69.322 ICD-9: 438.13 06/24/2024 Active Dyslipidemia ICD-10: E78.5 ICD-9: 272.4 06/24/2024 Active Dysphagia as late effect of cerebrovascular accident (CVA) ICD-10: I69.391 ICD-9: 438.82 06/24/2024 Active Gait abnormality ICD-10: R26.9 ICD-9: 781.2 05/21/2024 Active GERD (gastroesophageal reflu x disease) ICD-10: K21.9 ICD-9: 530.81 05/21/2024 Active H/O alcohol abuse ICD-10: F10.11 ICD-9: 305.03 06/24/2024 Active Hemiparesis due to recent cerebrovascular accident (CVA) ICD-10: I69.359 ICD-9: 438.20 06/24/2024 Active Hypertension with heart disease ICD-10: I11.9 ICD-9: 402.90 06/24/2024 Active 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 ICD-1 0: Z79.4 ICD-9: V58.67 06/24/2024 Active Obesity (BMI 30.0-34.9) ICD-10: E66.9 ICD-9: 278.00 05/21/2024 Active MONTY (obstructive sleep apnea) ICD-10: G4 7.33 ICD-9: 327.23 05/21/2024 Active Paroxysmal cough ICD-10: R05.8 ICD-9: 786.2 06/24/2024 Active Syncope ICD-10: R55 ICD-9: 780.2 06/24/2024 Active Encounter for general adult medical examination with abnormal findings ICD-10: Z00.01 ICD-9: V70.0 05/21/2024 Active Gastrostomy present ICD-10: Z93.1 ICD-9: V44.1 05/21/2024 Active shelter (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 ICD-10: Z79.4 05/21 Active Urinary incontinence ICD-10: R32 ICD-9: 788.30 05/21/2024 Active Medications Medication Codes Instructions Start Date Stop Date Status Fill Instructions ipratropium 0.5 mg-albuterol 3 mg (2.5 mg base)/3 mL nebulization soln RxNorm: 9335400 Administer 3 Milliliter(s) Inhalation every 6 hours as needed for shortness of breath 4 06/24/20 24 Inactive buspirone 5 mg tablet RxNorm: 038814 Take 1 Tablet(s) Oral three times a day 4 07/23/20 24 Inactive aspirin 81 mg chewable tablet RxNorm: 705077 Take 1 Tablet(s) Feeding Tube / PEG every day 08/13/20 25 Active atorvastatin 40 mg tablet RxNorm: 929265 Take 1 Tablet(s) Feeding Tube / PEG every night at bedtime 08/13/20 25 Active Senna Plus 8.6 mg-50 mg tablet RxNorm: 058156 Take 2 Tablet(s) Feeding Tube / PEG two times a day as needed for constipation 07/29/20 24 Inactive amlodipine 10 mg tablet RxNorm: 634427 Take 1 Tablet(s) Feeding Tube / PEG once daily 08/13/20 25 Active clopidogrel 75 mg tablet RxNorm: 868323 Take 1 Tablet(s) Feeding Tube / PEG once daily 08/13/20 25 Active Pen Needle 31 gauge x 5/16 RxNorm: Take 1 Pen Needle Subcutaneous three times a day 08/13/20 25 Active famotidine 20 mg tablet RxNorm: 105492 Take 1 Tablet(s) Feeding Tube / PEG two times a day 08/13/20 25 Active thiamine HCl (vitamin B1) 100 mg tablet RxNorm: 852380 Take 1 Tablet(s) Feeding Tube / PEG every day 08/13/20 25 Active folic acid 1 mg tablet RxNorm: 242425 Take 1 Tablet(s) Feeding Tube / PEG every day 08/13/20 25 Active multivit-mineral -folic acid 333 mcg-lutein 3 mg-zeaxant 0.67 mg tablet RxNorm: Take 1 Tablet(s) Oral every day 4 No Stop Date Active Lantus Solostar U-100 Insulin 100 unit/mL (3 mL) subcutaneous pen RxNorm: 226548 Administer 15 Unit(s) Subcutaneous every night at bedtime 08/13/20 25 Active loratadine 10 mg tablet RxNorm: 091195 Take 1 Tablet(s) Feeding Tube / PEG every day 08/13/20 25 Active albuterol sulfate HFA 90 mcg/actuation aerosol inhaler RxNorm: 5400094 Administer 2 Puff(s) Inhalation every 4 to 6 hours 01/16/20 Active Medication Administered No Medication Administered data Procedures Procedure Codes Date Most recent A1c = 7.0% and < 8.0% CPT-4: 3051F 06/24/2024 MED LIST DOCD IN [facility] CPT-4: 1159F 06/24/2024 RVW MEDS BY RX/DR IN [facility] CPT-4: 1160F 2023 Discharge Meds Reconciled w/ Current Med list CP T-4: 1111F 06/24/2024 Amnt pain noted; none prsnt CPT-4: 1126F 06/15 [facility] CPT-4: 01054 Unknown F1Q-Sjdjcyihznlzkdj CPT-4: 73016 Unknown Vital Signs Date Vital 06/24/2024 Blood Pressure 1: 134/76 Code: 8480-6 BMI: 34.6 Code: 63331-4 Heart Rate 1: 86 bpm Height: 6'4 Code: 8302-2 Respiratory Rate: 17 bpm SpO2: 94% Temperature: 36.4 (C) / 97.6 (F) Weight: 284 lbs Code: 54147-7 Reason For Visit Reason For Visit Effective Dates Notes post ED/hospital visit 06/24/2024 Encounters Encounter Performer Location Location Address Codes Eric e ([id number]) Home or Residence Visit Est Pt - Moderate Level, 40 mins Diagnosis: Syncope[ICD10: R55] Diagnosis: Hemiparesis due to recent cerebrovascular accident (CVA)[ICD10: I69.359] Diagnosis: Diabetes mellitus due to underlying condition with diabetic neuropathy, with long-term current use of insulin[ICD10: E08.40] Diagnosis: shelter (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[ICD10: Z79.4] Diagnosis: Hypertension with heart disease[ICD10: I11.9] Diagnosis: MONTY (obstructive sleep apnea)[ICD10: G47.33] Diagnosis: Gait abnormality[ICD10: R26.9] Diagnosis: Coronary artery disease[ICD10: I25.10] Diagnosis: Asthma[ICD10: J45.909] Diagnosis: 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] Diagnosis: Dyslipidemia[ICD10: E78.5] Diagnosis: GERD (gastroesophageal reflux disease)[ICD10: K21.9] Diagnosis: Dysphagia as late effect of cerebrovascular accident (CVA)[ICD10: I69.391] Diagnosis: H/O alcohol abuse[ICD10: F10.11] Diagnosis: Obesity (BMI 30.0-34.9)[ICD10: E66.9] Diagnosis: At high risk for falls[ICD10: Z91.81] Diagnosis: Colon cancer screening[ICD10: Z12.11] Diagnosis: Paroxysmal cough[ICD10: R05.8] Sean Kyle [place] [facility] [address] [place] [address] CPT-4: 53865 4 Plan of Care Planned Activity Notes Codes Status Date Visit Plan: R55-780.2 Syncope: m ost likely due to Autonomic dysfunc. R/o Cardiac Arrhythmia. though unlikely. Doing Event monitor. May need Midodrine. I69.359-438.20 Hemiparesis due to recent cerebrovascular accident (CVA): On ASA. Lipitor. On PT/OT. E08.40-249.60 Diabetes mellitus due to underlying condition with diabetic neuropathy, with long-term current use of insulin: Stable. Hba1c 7.0. 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 Hemiparesis. On PT/OT I25.10-414.00 Coronary artery disease: S/P CABG. Stable On ASA, Lipitor, Plavix J45.909-493.90 Asthma: Has cough. On DuoNeb, Ventolin HFA. 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 On ST E78.5-272.4 Dyslipidemia: stable On Lipitor K21.9-530.81 GERD (gastroesophageal reflux disease): On Famotidine I69.391-438.82 Dysphagia as late effect of cerebrovascular accident (CVA): improved w/ normal swallowing study.On regular diet now and tolerating diet. Will d/c Gastrostomy tubing F10.11-305.03 H/O alcohol abuse: Off Alcohol now. On Thiamine E66.9-278.00 Obesity (BMI 30.0-34.9) Z91.81-V15.88 At high risk for falls: at present [facility] bound. On PT/OT for strengthening, balance, coordination Z12.11-V76.51 Colon cancer screening: Cologuanolberto R05.8-786.2 Paroxysmal cough: poss due to poor pharyngeal reflex, GERD . Try Protonix. Oropharyngeal suctioning. Order Suction Aspirator 06/24/2024 Patient Education: Obesity Completed 06/24/2024 Patient Education: Patient Medication Summary Completed 06/24/2024 Care Plan: Cologuard Ordered 06/15 Appointment: Oscar Hoyt WPtel: [address] [facility] B [id number] [place] Phone Call 06/20/2024 Appointment: Mony Moseley WPtel: [address] [place], [place] [phone] [place] Phone Call 06/06/2024 Appointment: Mony Moseley WPtel: [address] [place], [place] [phone] [place] Phone Call 05/26/2024 Appointment: eSan Kyle WPtel: [address] [place], [place] [phone] [id number] 05/21/2024 Referral: [employer] [facility] WPtel: [address] [facility] 157 [id number] Referral faxed to: Agency Name: [employer] Agency Address: [address] [facility] [address], [place] [address] Agency Phone #: [phone] Agency Agency will contact the patient to schedule Order Faxed Referral: Pending Medical Records Information [facility] requires Consent when requesting records, there i currently no consent on file for the patient can we get consent uploaded to [facility] so we can finish the request. thank you On Hold Awaiting Documentation Referral: [facility] WPtel: [address] [place] [phone] [facility]- Dr Ruiz [address] [facility] [address], [place] [address] Reprocess Referral: [facility] WPtel: [address] [place] [address] 05/22/2024 order faxed to agency. Not Taken Up Referral: Pending Real Estate Listing Consultant Referral Information lvm , provided the above agency information. Instructed to call O&R department if they do not hear back from agency withing 7-10 days.05/22/24 no answer, lvm to Spoke with office HVS Referral faxed to:[employer] Agency Name: _[employer] Agency Address:_ [address], [place] [address] Agency Phone #:_ Agency _ Agency will contact the patient to schedule appointment. Order Faxed Referral: Sean Kyle WPtel: [place] [phone] Agency contacted, confirmed they're accepting new patients. They will run insurance once order is received Referral faxed to: Agency Name: [employer] Agency Address: [address] , [address], [place] [address] Agency Phone #:[phone] Agency Agency will ship to patient. pt has referral info Order Faxed Referral: Provider Ghada Hurtado WPtel: [address] Notes & referral faxed to [facility] [phone] Order Faxed Referral: Pending Incontinence Supplies Order Information called and spoke to Nanette patient POA an advised contact number given Order Faxed Referral: Sean Kyle WPtel: [address] 06-24-2024. Called pt. spoke with Jenn Do [...] Patient Insurance Instructions Comment Date Fall precaution Aspiration precaution Postural change. R55-780.2 Syncope: most likely due to Autonomic dysfunc. R/o Cardiac Arrhythmia. though unlikely. Doing Event monitor. May need Midodrine. I69.359-438.20 Hemiparesis due to recent cerebrovascular accident (CVA): On ASA. Lipitor. On PT/OT. E08.40-249.60 Diabetes mellitus due to underlying condition with diabetic neuropathy, with long-term current use of insulin: Stable. Hba1c 7.0. On Lantus Z79.4-V58.67 shelter (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; On Lantus 15 U I11.9-402.90 Hypertension with heart disease: Stable .On Norvasc G47.33-327.23 MONTY (obstructive sleep apnea) R26.9-781.2 Gait abnormality: due to CVA. Hemiparesis. On PT/OT I25.10-414.00 Coronary artery disease: S/P CABG. Stable On ASA, Lipitor, Plavix J45.909-493.90 Asthma: Has cough. On DuoNeb, Ventolin HFA. 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 On ST E78.5-272.4 Dyslipidemia: stable On Lipitor K21.9-530.81 GERD (gastroesophageal reflux disease): On Famotidine I69.391-438.82 Dysphagia as late effect of cerebrovascular accident (CVA): improved w/ normal swallowing study.On regular diet now and tolerating diet. Will d/c Gastrostomy tubing F10.11-305.03 H/O alcohol abuse: Off Alcohol now. On Thiamine E66.9-278.00 Obesity (BMI 30.0-34.9) Z91.81-V15.88 At high risk for falls: at present [facility] bound. On PT/OT for strengthening, balance, coordination Z12.11-V76.51 Colon cancer screening: jim R05.8-786.2 Paroxysmal cough: poss due to poor pharyngeal reflex, GERD . Try Protonix. Oropharyngeal suctioning. Order Suction Aspirator 06/24/2024 Medical Equipment No Medical Equipment data Advance Directives No Advance Directive data
--- OUTSIDE RECORDS SUMMARY | 2024-07-29 16:18 | XMS_ITS | CCD ---
Author Name Saroj DAVIS, Dr Amanda escalona Address [address] [place] [address] Phone [facility] Phone Care Team Providers Care Director Of Cardiology Name Role Phone Saroj DAVIS, Dr Estrada Primary Care Provider Unav ailable Unavailable Chronic Care Management Unavaila ble Summary Purpose DataExchange Insurance Providers Payer name Policy type / Coverage type Covered democrat ID Effective Begin Date Effective End Date [place] [id number] Unknown Family history Sister Diagnosis Age At [...] No Inactive Date Active LISINOPRIL angioedema RxNorm: 85037 05/21/2024 No Inactive D ate Active Penicillin *not specified Unknown 05/21/2024 No Inactive D ate Active *No known food allergies Unknown 05/21/2024 No Inactive Date Active Problems Condition Codes Effective Dates Condition St atus Gastrostomy present ICD-10: Z93.1 ICD-9: V44.1 07/07/2024 Active Asthma ICD-10: J45.909 ICD-9: 493.90 06/24/2024 Active [...] disease ICD-10: I11.9 ICD-9: 402.90 06/24/2024 Active 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 ICD-1 0: Z79.4 ICD-9: V58.67 06/24/2024 Active Obesity (BMI 30.0-34.9) ICD-10: E66.9 ICD-9: 278.00 05/21/2024 Active MONTY (obstructive sleep apnea) ICD-10: G4 7.33 ICD-9: 327.23 05/21/2024 Active Paroxysmal cough ICD-10: R05.8 ICD-9: 786.2 06/24/2024 Active Syncope ICD-10: R55 ICD-9: 780.2 06/24/2024 Active Encounter for general adult medical examination with abnormal findings ICD-10: Z00.01 ICD-9: V70.0 05/21/2024 Active 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 ICD-10: Z79.4 05/21 Active Urinary incontinence ICD-10: R32 ICD-9: 788.30 05/21/2024 Active Medications Medication Codes Instructions Start Date Stop Date Status Fill Instructions ipratropium 0.5 mg-albuterol 3 mg (2.5 mg base)/3 mL nebulization soln RxNorm: 7294881 Administer 3 Milliliter(s) Inhalation every 6 hours as needed for shortness of breath 4 06/24/20 24 Inactive buspirone 5 mg tablet RxNorm: 837487 Take 1 Tablet(s) Oral three times a day 4 07/23/20 24 Inactive aspirin 81 mg chewable tablet RxNorm: 182147 Take 1 Tablet(s) Feeding Tube / PEG every day 08/13/20 25 Active atorvastatin 40 mg tablet RxNorm: 394255 Take 1 Tablet(s) Feeding Tube / PEG every night at bedtime 08/13/20 25 Active Senna Plus 8.6 mg-50 mg tablet RxNorm: 623363 Take 2 Tablet(s) Feeding Tube / PEG two times a day as needed for constipation 07/29/20 24 Inactive amlodipine 10 mg tablet RxNorm: 943514 Take 1 Tablet(s) Feeding Tube / PEG once daily 08/13/20 25 Active clopidogrel 75 mg tablet RxNorm: 483061 Take 1 Tablet(s) Feeding Tube / PEG once daily 08/13/20 25 Active Pen Needle 31 gauge x 5/16 RxNorm: Take 1 Pen Needle Subcutaneous three times a day 08/13/20 25 Active famotidine 20 mg tablet RxNorm: 581324 Take 1 Tablet(s) Feeding Tube / PEG two times a day 08/13/20 25 Active thiamine HCl (vitamin B1) 100 mg tablet RxNorm: 104240 Take 1 Tablet(s) Feeding Tube / PEG every day 08/13/20 25 Active folic acid 1 mg tablet RxNorm: 051406 Take 1 Tablet(s) Feeding Tube / PEG every day 08/13/20 25 Active multivit-mineral -folic acid 333 mcg-lutein 3 mg-zeaxant 0.67 mg tablet RxNorm: Take 1 Tablet(s) Oral every day 4 No Stop Date Active Lantus Solostar U-100 Insulin 100 unit/mL (3 mL) subcutaneous pen RxNorm: 289672 Administer 15 Unit(s) Subcutaneous every night at bedtime 4 08/13/20 25 Active loratadine 10 mg tablet RxNorm: 135325 Take 1 Tablet(s) Feeding Tube / PEG every day 4 08/13/20 25 Active albuterol sulfate HFA 90 mcg/actuation aerosol inhaler RxNorm: 3716525 Administer 2 Puff(s) Inhalation every 4 to 6 hours 01/16/20 25 Active Medication Administered No Medication Administered data Procedures Procedure Codes Date Cologuard CPT-4: 59895 Unknown [id number]-Tigpsgtykdhbvhj CPT-4: 20744 Unknown Gastroenterology Referral SNOMED CT: 306 545589 CPT-4: R12 Unknown Reason For Visit No Reason For Visit data Plan of Care Planned Activity Notes Codes Status Date Patient Education: Patient Medication Summary Completed 07/07/2024 Appointment: Sean Kyle WPtel: [address] [place], [place] [phone] [id number] 06/24/2024 Appointment: Oscar Hoyt WPtel: [address] [facility] [address] [id number] [place] Phone Call 06/20/2024 Appointment: Mony Moseley WPtel: [address] [place], [place] [phone] [place] Phone Call 06/06/2024 Appointment: Mony Moseley WPtel: [address] [place], [place] [phone] [place] Phone Call 05/26/2024 Appointment: Sean Kyle WPtel: [address] [place], [place] [phone] [id number] 05/21/2024 Referral: [facility] WPtel: [address] [id number] Referral faxed to: Agency Name: [facility] [employer] [facility] Agency Address: [address] [facility] [address], [place] [address] Agency Phone #: [phone] Agency Agency will contact the patient to schedule Order Faxed Referral: Pending Medical Records Information [facility] requires Consent when requesting records, there i currently no consent on file for the patient can we get consent uploaded to [facility] so we can finish the request. thank you On Hold Awaiting Documentation Referral: [facility] WPtel: [address] [place] [phone] [facility]- Dr Ruiz [address] [facility] [address], [place] [address] Reprocess Referral: [facility] WPtel: [address] [place] [address] 05/22/2024 order faxed to agency. Not Taken Up Referral: Pending Taxation Consultant Referral Information lvm , provided the above agency information. Instructed to call O&R department if they do not hear back from agency withing 7-10 days.05/22/24 no answer, lvm to Spoke with office HVS Referral faxed to:[employer] Agency Name: _[employer] [facility] Agency Address:_ [address], [place] [address] Agency Phone #:_ Agency _ Agency will contact the patient to schedule appointment. Order Faxed Referral: Sean Kyle WPtel: [address] [place], [place] [phone] Agency contacted, confirmed they're accepting new patients. They will run insurance once order is received Referral faxed to: Agency Name: [employer] Agency Address: [address], [place] [address] Agency Phone #:[phone] Agency Agency will ship to patient. pt has referral info Order Faxed Referral: [facility] WPtel: [address] Notes & referral faxed to [facility] [phone] Order Faxed Referral: Pending Incontinence Supplies Order Information called and spoke to Nanette patient POA an advised contact number given Order Faxed Referral: Sean Kyle WPtel: [address] [place], [place] [phone] 06-24-2024. Called pt. spoke with Jenn Do the sister/POA which stated pt. only received the insulin not the supplies. Re-f/u with agency per POA request spoke with Princess the Rep. which stated pt. was notified back in May 29 2024. which they spoke with pt. sister/POA which stated pt. do not have an secondary insurance and is currently in the hospital. Per RepAriel Sánchez pt. sister was told pt. would have an co-pay since no secondary insurance and for her to call them back soon as pt. is out of the hospital. Per Princess pt. sister/POA Jenn agree and never return a call. DME Company Confirmed Referral: Pending DME Order Information called and spoke to patient JUDY woods advised Not Taken Up - Patient Insurance Medical Equipment No Medical Equipment data Advance Directives No Advance Directive data
--- OUTSIDE RECORDS SUMMARY | 2024-07-29 16:18 | XMS_ITS | CCD ---
Author Organization Unknown Care Team Providers Care Maid Housekeeper Name Role Phone Saroj DAVIS, Dr Estrada Primary Care Provider Unav ailable Unavailable Chronic Care Management Unavaila ble Summary Purpose DataExchange Insurance Providers Payer name Policy type / Coverage type Covered [place] party ID Effective Begin Date Effective End Date [place] [id number] Unknown Family history Sister Diagnosis Age At [...] No Inactive Date Active LISINOPRIL angioedema RxNorm: 16863 05/21/2024 No Inactive D ate Active Penicillin [...] disease ICD-10: I11.9 ICD-9: 402.90 07/24/2024 Active 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 ICD-1 0: Z79.4 [...] Syncope ICD-10: R55 ICD-9: 780.2 06/24/2024 Active snf (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 ICD-10: Z79.4 05/21 Active Urinary incontinence ICD-10: R32 ICD-9: 788.30 05/21/2024 Active Medications Medication Codes Instructions Start Date Stop Date Status Fill Instructions buspirone 5 mg tablet RxNorm: 543662 Take 1 Tablet(s) Oral three times a day 4 10/26/19 25 Active Senna Plus 8.6 mg-50 mg tablet RxNorm: 617211 Take 2 Tablet(s) Oral two times a day as needed for constipation 4 07/28/20 24 Inactive multivitamin tablet RxNorm: Take 1 Tablet(s) Oral every day 4 10/20/19 26 Active buspirone 5 mg tablet RxNorm: 046928 Take 1 Tablet(s) Oral two times a day 4 10/16/19 26 Active polyethylene glycol 3350 17 gram/dose oral powder RxNorm: 312563 Use 1 Unit Dose Oral every day Mix 17g (one capful) with 8oz liquid. Hold for loose stools. 4 08/17/20 25 Active ipratropium 0.5 mg-albuterol 3 mg (2.5 mg base)/3 mL nebulization soln RxNorm: 4704040 Administer 3 Milliliter(s) Inhalation every 6 hours as needed for shortness of breath 4 06/24/20 24 Inactive buspirone 5 mg tablet RxNorm: 975117 Take 1 Tablet(s) Oral three times a day 4 07/23/20 24 Inactive aspirin 81 mg chewable tablet RxNorm: 868285 Take 1 Tablet(s) Feeding Tube / PEG every day 4 08/13/20 25 Active atorvastatin 40 mg tablet RxNorm: 296926 Take 1 Tablet(s) Feeding Tube / PEG every night at bedtime 4 08/13/20 25 Active Senna Plus 8.6 mg-50 mg tablet RxNorm: 796309 Take 2 Tablet(s) Feeding Tube / PEG two times a day as needed for constipation 4 07/29/20 24 Inactive amlodipine 10 mg tablet RxNorm: 997717 Take 1 Tablet(s) Feeding Tube / PEG once daily 08/13/20 25 Active clopidogrel 75 mg tablet RxNorm: 967130 Take 1 Tablet(s) Feeding Tube / PEG once daily 08/13/20 25 Active Pen Needle 31 gauge x 5/16 RxNorm: Take 1 Pen Needle Subcutaneous three times a day 08/13/20 25 Active famotidine 20 mg tablet RxNorm: 438178 Take 1 Tablet(s) Feeding Tube / PEG two times a day 08/13/20 25 Active thiamine HCl (vitamin B1) 100 mg tablet RxNorm: 668766 Take 1 Tablet(s) Feeding Tube / PEG every day 08/13/20 25 Active folic acid 1 mg tablet RxNorm: 868277 Take 1 Tablet(s) Feeding Tube / PEG every day 08/13/20 25 Active multivit-mineral -folic acid 333 mcg-lutein 3 mg-zeaxant 0.67 mg tablet RxNorm: Take 1 Tablet(s) Oral every day 4 No Stop Date Active Lantus Solostar U-100 Insulin 100 unit/mL (3 mL) subcutaneous pen RxNorm: 644387 Administer 15 Unit(s) Subcutaneous every night at bedtime 08/13/20 25 Active loratadine 10 mg tablet RxNorm: 444414 Take 1 Tablet(s) Feeding Tube / PEG every day 08/13/20 25 Active albuterol sulfate HFA 90 mcg/actuation aerosol inhaler RxNorm: 9255219 Administer 2 Puff(s) Inhalation every 4 to 6 hours 01/16/20 25 Active Medication Administered No Medication Administered data Procedures Procedure Codes Date Annual Wellness Visit (Initial Visit) CPT-4: G04 38 07/24/2024 FLU VACC CELL CULT PRSV FREE CPT-4: 20411 07/2024 Cologuard CPT-4: 03192 Unknown [id number] CPT-4: 43186 Unknown Gastroenterology Referral SNOMED CT: 306 696287 CPT-4: R12 Unknown Reason For Visit No Reason For Visit data Plan of Care Planned Activity Notes Codes Status Date Referral: [facility] WPtel: [address] [id number] Referral faxed to: Agency Name: Rebecca Addashop Agency Address: [address], [place] [address] Agency Phone #: [phone] Agency Agency will contact the patient to schedule Order Faxed Referral: Pending Medical Records Information M requires Consent when requesting records, there i currently no consent on file for the patient can we get consent uploaded to [facility] so we can finish the request. thank you On Hold Awaiting Documentation Referral: [facility] WPtel: [address] [phone] [facility]- [facility] Ruiz [address] [facility] [address] [address] Reprocess Referral: [facility] WPtel: [address] [place] [address] 05/22/2024 order faxed to agency. Not Taken Up Referral: Pending Software Product Manager Referral Information lvm , provided the above agency information. Instructed to call O&R department if they do not hear back from agency withing 7-10 days.05/22/24 no answer, lvm to Spoke with office HVS Referral faxed to:[facility] Agency Name: _[facility] Agency Address:_ [address], [place] [address] Agency Phone #:_ Agency _ Agency will contact the patient to schedule appointment. Order Faxed Referral: Sean Kyle WPtel: [address] [place], [place] [id number] Agency contacted, confirmed they're accepting new patients. They will run insurance once order is received Referral faxed to: Agency Name: [facility] Agency Address: [address] , [place] [address], [place] [address] Agency Phone #:[phone] Agency Agency will ship to patient. pt has referral info Order Faxed Referral: [facility] WPtel: [address] Notes & referral faxed to [facility] [phone] Order Faxed Referral: Pending Incontinence Supplies Order Information called and spoke to Nanette patient ANAYELIA an advised contact number given Order Faxed Referral: Sean Kyle WPtel: [address] [place], [place] [phone] 06-24-2024. Called pt. spoke with Jenn Do [...]
--- OUTSIDE RECORDS SUMMARY | 2024-08-29 09:36 | XMS_ITS | CCD ---
Author Organization Unknown Care Team Providers Care Real Estate Marketing Coordinator Name Role Phone Saroj DAVIS, Dr Estrada Primary Care Provider Unav ailable Unavailable Chronic Care Management Unavaila ble Summary Purpose DataExchange Insurance Providers Payer name Policy type / Coverage type Covered green party ID Effective Begin Date Effective End Date [place] [id number] Unknown Family history Sister Diagnosis Age At [...] No Inactive Date Active LISINOPRIL angioedema RxNorm: 83345 05/21/2024 No Inactive D ate Active Penicillin [...] disease ICD-10: I11.9 ICD-9: 402.90 07/24/2024 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 ICD-1 0: Z79.4 [...] Syncope ICD-10: R55 ICD-9: 780.2 06/24/2024 Active FDC (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 ICD-10: Z79.4 05/21 Active Urinary incontinence ICD-10: R32 ICD-9: 788.30 05/21/2024 Active Medications Medication Codes Instructions Start Date Stop Date Status Fill Instructions ipratropium 0.5 mg-albuterol 3 mg (2.5 mg base)/3 mL nebulization soln RxNorm: 2917738 Inhale 3 Milliliter(s) Inhalation every 6 hours as needed for shortness of breath 4 11/19/19 25 Active albuterol sulfate HFA 90 mcg/actuation aerosol inhaler RxNorm: 2553361 Administer 2 Puff(s) Inhalation every 4 to 6 hours 4 12/20/19 25 Active buspirone 5 mg tablet RxNorm: 878813 Take 1 Tablet(s) Oral three times a day 4 10/26/19 25 Active Senna Plus 8.6 mg-50 mg tablet RxNorm: 297287 Take 2 Tablet(s) Oral two times a day as needed for constipation 4 07/28/20 24 Inactive multivitamin tablet RxNorm: Take 1 Tablet(s) Oral every day 4 10/20/19 26 Active buspirone 5 mg tablet RxNorm: 545309 Take 1 Tablet(s) Oral two times a day 4 10/16/19 26 Active polyethylene glycol 3350 17 gram/dose oral powder RxNorm: 308897 Use 1 Unit Dose Oral every day Mix 17g (one capful) with 8oz liquid. Hold for loose stools. 4 08/17/20 25 Active ipratropium 0.5 mg-albuterol 3 mg (2.5 mg base)/3 mL nebulization soln RxNorm: 6584002 Administer 3 Milliliter(s) Inhalation every 6 hours as needed for shortness of breath 4 08/22/20 24 Inactive buspirone 5 mg tablet RxNorm: 068967 Take 1 Tablet(s) Oral three times a day 4 07/23/20 24 Inactive aspirin 81 mg chewable tablet RxNorm: 485429 Take 1 Tablet(s) Feeding Tube / PEG every day 08/13/20 25 Active atorvastatin 40 mg tablet RxNorm: 045500 Take 1 Tablet(s) Feeding Tube / PEG every night at bedtime 08/13/20 25 Active amlodipine 10 mg tablet RxNorm: 168047 Take 1 Tablet(s) Feeding Tube / PEG once daily 08/13/20 25 Active clopidogrel 75 mg tablet RxNorm: 400293 Take 1 Tablet(s) Feeding Tube / PEG once daily 08/13/20 25 Active Pen Needle 31 gauge x 02/27 RxNorm: Take 1 Pen Needle Subcutaneous three times a day 08/13/20 25 Active famotidine 20 mg tablet RxNorm: 291696 Take 1 Tablet(s) Feeding Tube / PEG two times a day 08/13/20 25 Active thiamine HCl (vitamin B1) 100 mg tablet RxNorm: 843436 Take 1 Tablet(s) Feeding Tube / PEG every day 08/13/20 25 Active folic acid 1 mg tablet RxNorm: 818188 Take 1 Tablet(s) Feeding Tube / PEG every day 08/13/20 25 Active multivit-mineral -folic acid 333 mcg-lutein 3 mg-zeaxant 0.67 mg tablet RxNorm: Take 1 Tablet(s) Oral every day 4 No Stop Date Active Lantus Solostar U-100 Insulin 100 unit/mL (3 mL) subcutaneous pen RxNorm: 710473 Administer 15 Unit(s) Subcutaneous every night at bedtime 08/13/20 25 Active loratadine 10 mg tablet RxNorm: 595043 Take 1 Tablet(s) Feeding Tube / PEG every day 08/13/20 25 Active Senna Plus 8.6 mg-50 mg tablet RxNorm: 827075 Take 2 Tablet(s) Feeding Tube / PEG two times a day as needed for constipation 07/29/20 24 Inactive albuterol sulfate HFA 90 mcg/actuation aerosol inhaler RxNorm: 7684389 Administer 2 Puff(s) Inhalation every 4 to 6 hours 05/21/20 24 Inactive Medication Administered No Medication Administered data Procedures Procedure Codes Date Annual Wellness Visit (Initial Visit) CPT-4: G04 38 07/24/2024 FLU VACC CELL CULT PRSV FREE CPT-4: 69579 07/2024 Cologuard CPT-4: 90028 Unknown [id number] CPT-4: 47276 Unknown Gastroenterology Referral SNOMED CT: 306 739382 CPT-4: R12 Unknown Reason For Visit No Reason For Visit data Plan of Care Planned Activity Notes Codes Status Date Referral: [facility] WPtel: [address] [address] [place] Referral faxed to: Agency Name: [facility] Agency Address: [address] [place] [address] Agency Phone #: [phone] Agency Agency will contact the patient to schedule Order Faxed Referral: Pending Medical Records Information [facility] requires Consent when requesting records, there i currently no consent on file for the patient can we get consent uploaded to [facility] so we can finish the request. thank you On Hold Awaiting Documentation Referral: [facility] WPtel: [address] [place], [place] [phone] [facility]- Dr Ru[address] [place] [address] Reprocess Referral: [facility] WPtel: [address] [place], [place] [phone] 05/22/2024 order faxed to agency. Not Taken Up Referral: Residential home health WPtel: [facility] [address] [facility] [place] Referral ACT - Recert Referral: Pending Title Lawyer Referral Information lvm , provided the above agency information. Instructed to call O&R department if they do not hear back from agency withing 7-10 days.05/22/24 no answer, lvm to cb Spoke with office HVS Referral faxed to:[email or web address] Agency Name: _[facility] Agency Address:_ [address], [place] [address] Agency Phone #:_ Agency _ Agency will contact the patient to schedule appointment. Order Faxed Referral: Sean Kyle WPtel: [address] Agency contacted, confirmed they're accepting new patients. They will run insurance once order is received Referral faxed to: Agency Name: [facility] Agency Address: Ryan Lees , [facility] [address] [place] [id number] Agency Phone #:[phone] Agency Agency will ship to patient. pt has referral info Order Faxed Referral: Residential home health WPtel: [facility] [id number] Referral ACT - HH Cert Referral: [facility] WPtel: [address] [place] [address] Notes & referral faxed to [facility] [phone] Order Faxed Referral: Pending Incontinence Supplies Order Information called and spoke to Nanette patient POA an advised contact number given Order Faxed Referral: Sean Kyle WPtel: [address] 06-24-2024. Called pt. spoke with Jenn [...] Order Information called and spoke to patient POA Rahul an advised Not Taken Up - Patient Insurance Medical Equipment No Medical Equipment data Advance Directives No Advance Directive data
--- OUTSIDE RECORDS SUMMARY | 2024-08-29 09:36 | XMS_ITS | CCD ---
Author Organization Unknown Care Team Providers Care Parking Patroller Name Role Phone Saroj DAVIS, Dr Estrada Primary Care Provider Unav ailable Unavailable Chronic Care Management Unavaila ble Summary Purpose DataExchange Insurance Providers Payer name Policy type / Coverage type Covered green party ID Effective Begin Date Effective End Date [place] MED[place] [id number] Unknown Family history Sister Diagnosis Age At [...] No Inactive Date Active LISINOPRIL angioedema RxNorm: 52640 05/21/2024 No Inactive D ate Active Penicillin [...] disease ICD-10: I11.9 ICD-9: 402.90 07/24/2024 Active rn long term care (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 ICD-1 0: Z79.4 [...] Syncope ICD-10: R55 ICD-9: 780.2 06/24/2024 Active alf (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 ICD-10: Z79.4 05/21 Active Urinary incontinence ICD-10: R32 ICD-9: 788.30 05/21/2024 Active Medications Medication Codes Instructions Start Date Stop Date Status Fill Instructions ipratropium 0.5 mg-albuterol 3 mg (2.5 mg base)/3 mL nebulization soln RxNorm: 1175868 Inhale 3 Milliliter(s) Inhalation every 6 hours as needed for shortness of breath 4 11/19/19 25 Active albuterol sulfate HFA 90 mcg/actuation aerosol inhaler RxNorm: 1583591 Administer 2 Puff(s) Inhalation every 4 to 6 hours 4 12/20/19 25 Active buspirone 5 mg tablet RxNorm: 935501 Take 1 Tablet(s) Oral three times a day 4 10/26/19 25 Active Senna Plus 8.6 mg-50 mg tablet RxNorm: 972407 Take 2 Tablet(s) Oral two times a day as needed for constipation 4 07/28/20 24 Inactive multivitamin tablet RxNorm: Take 1 Tablet(s) Oral every day 4 10/20/19 26 Active buspirone 5 mg tablet RxNorm: 252009 Take 1 Tablet(s) Oral two times a day 4 10/16/19 26 Active polyethylene glycol 3350 17 gram/dose oral powder RxNorm: 922384 Use 1 Unit Dose Oral every day Mix 17g (one capful) with 8oz liquid. Hold for loose stools. 4 08/17/20 25 Active ipratropium 0.5 mg-albuterol 3 mg (2.5 mg base)/3 mL nebulization soln RxNorm: 3103981 Administer 3 Milliliter(s) Inhalation every 6 hours as needed for shortness of breath 4 08/22/20 24 Inactive buspirone 5 mg tablet RxNorm: 494711 Take 1 Tablet(s) Oral three times a day 4 07/23/20 24 Inactive aspirin 81 mg chewable tablet RxNorm: 965472 Take 1 Tablet(s) Feeding Tube / PEG every day 08/13/20 25 Active atorvastatin 40 mg tablet RxNorm: 948579 Take 1 Tablet(s) Feeding Tube / PEG every night at bedtime 08/13/20 25 Active amlodipine 10 mg tablet RxNorm: 790751 Take 1 Tablet(s) Feeding Tube / PEG once daily 08/13/20 25 Active clopidogrel 75 mg tablet RxNorm: 538311 Take 1 Tablet(s) Feeding Tube / PEG once daily 08/13/20 25 Active Pen Needle 31 gauge x 02/27 RxNorm: Take 1 Pen Needle Subcutaneous three times a day 08/13/20 25 Active famotidine 20 mg tablet RxNorm: 929835 Take 1 Tablet(s) Feeding Tube / PEG two times a day 08/13/20 25 Active thiamine HCl (vitamin B1) 100 mg tablet RxNorm: 066649 Take 1 Tablet(s) Feeding Tube / PEG every day 08/13/20 25 Active folic acid 1 mg tablet RxNorm: 257257 Take 1 Tablet(s) Feeding Tube / PEG every day 08/13/20 25 Active multivit-mineral -folic acid 333 mcg-lutein 3 mg-zeaxant 0.67 mg tablet RxNorm: Take 1 Tablet(s) Oral every day 4 No Stop Date Active Lantus Solostar U-100 Insulin 100 unit/mL (3 mL) subcutaneous pen RxNorm: 691107 Administer 15 Unit(s) Subcutaneous every night at bedtime 08/13/20 25 Active loratadine 10 mg tablet RxNorm: 387318 Take 1 Tablet(s) Feeding Tube / PEG every day 08/13/20 25 Active Senna Plus 8.6 mg-50 mg tablet RxNorm: 317966 Take 2 Tablet(s) Feeding Tube / PEG two times a day as needed for constipation 07/29/20 24 Inactive albuterol sulfate HFA 90 mcg/actuation aerosol inhaler RxNorm: 7754314 Administer 2 Puff(s) Inhalation every 4 to 6 hours 05/21/20 24 Inactive Medication Administered No Medication Administered data Procedures Procedure Codes Date Annual Wellness Visit (Initial Visit) CPT-4: G04 38 07/24/2024 FLU VACC CELL CULT PRSV FREE CPT-4: 21783 07/2024 Cologuard CPT-4: 55605 Unknown [id number] CPT-4: 10857 Unknown Gastroenterology Referral SNOMED CT: 306 876212 CPT-4: R12 Unknown Reason For Visit No Reason For Visit data Plan of Care Planned Activity Notes Codes Status Date Referral: [facility] WPtel: [address] [address] [place] Referral faxed to: Agency Name: [facility] Agency Address: [address] [place] [address] Agency Phone #: [phone] Agency Agency will contact the patient to schedule Order Faxed Referral: Pending Medical Records Information [facility] requires Consent when requesting records, there i currently no consent on file for the patient can we get consent uploaded to [facility] so we can finish the request. thank you On Hold Awaiting Documentation Referral: [facility] WPtel: [address] [place], [place] [phone] [facility]- [address] [place] [address] Reprocess Referral: [facility] WPtel: [address] [place], [place] [phone] 05/22/2024 order faxed to agency. Not Taken Up Referral: Residential home health WPtel: [facility] [address] [facility] [place] Referral ACT - Recert Referral: Pending Biometrics Analyst Referral Information lvm , provided the above agency information. Instructed to call O&R department if they do not hear back from agency withing 7-10 days.05/22/24 no answer, lvm to cb Spoke with office HVS Referral faxed to:[facility] Agency Name: _[facility] Agency Address:_ [address], [place] [address] Agency Phone #:_ Agency _ Agency will contact the patient to schedule appointment. Order Faxed Referral: Sean Kyle WPtel: [address] Agency contacted, confirmed they're accepting new patients. They will run insurance once order is received Referral faxed to: Agency Name: [facility] Agency Address: Ryan Lees , [facility] [address] [id number] Agency Phone #:[phone] Agency Agency will ship to patient. pt has referral info Order Faxed Referral: Residential home health WPtel: [facility] [id number] Referral ACT - HH Cert Referral: [facility] WPtel: [address] [place] [address] Notes & referral faxed to [facility] [phone] Order Faxed Referral: Pending Incontinence Supplies Order Information called and spoke to Nanette patient POA an advised contact number given Order Faxed Referral: Sean Kyle WPtel: [address] 06-24-2024. Called pt. spoke with Jenn [...]
[2025-08-14] VITALS (9 sets, daily range): BP systolic 121–147; BP diastolic 79–97; PULSE 68–77; RESP 16–25; O2SAT 94–100
--- NOTE | ~2025-08-14 | XR_ITS ---
XR chest 2V HOSTORY: weakness COMPARISON:[ None] FINDINGS: Frontal and lateral views of the chest were obtained. The lungs are clear. The heart size is normal in size. Pulmonary vasculature is unremarkable. Osseous structures are intact. IMPRESSION: No acute lung findings.] [ ] Reviewed, dictated and finalized at location S.
--- NOTE | ~2025-08-14 | CT_ITS ---
EXAMINATION: CT brain wo con DATE: 08/14/2025 18:39 INDICATION: Weakness TECHNIQUE: Computed tomography (CT) of the head was performed without intravenous contrast. Sagittal and coronal reconstructions were performed. The mA was adjusted according to patient size. Iterative reconstruction technique was employed. The dose-length product was 605.33 mGy-cm. COMPARISON: None FINDINGS: No acute intracranial hemorrhage, acute infarction or abnormal extra axial fluid collection. There are old lacunar infarcts right basal ganglia involving the abdomen from the previous, the genu of the internal capsule, portion of the body of the caudate nucleus and adjacent right frontal lobe merchant radiata. Additional small old lacunar infarct at the left thalamus. There is mild scattered white matter hypoattenuation consistent with chronic small vessel ischemic disease. Ventricles are normal and symmetric. No mass/mass effect. Small right and moderate sized left mastoid effusions. The orbitsand paranasal sinuses are normal. IMPRESSION: 1. Old lacunar infarcts at the left thalamus and more extensively in the right basal ganglia. No acute intracranial process. 2. Mild scattered white matter hypoattenuation consistent with chronic small vessel ischemic disease. 3. Small right and moderate sized left mastoid effusions. Reviewed, dictated and finalized at location A. IMPRESSION: 1. Old lacunar infarcts at the left thalamus and more extensively in the right basal ganglia. No acute intracranial process. 2. Mild scattered white matter hypoattenuation consistent with chronic small ve ssel ischemic disease. 3. Small right and moderate sized left mastoid effusions.
--- NOTE | 2025-08-14 17:00 | ECG_ITS ---
Test Date: 2025-08-14 20:25:19 Measurements Intervals [place] Rate: 68 P: 28 CT: 140 QRS: -1 QRSD: 94 T: 11 QT: 396 QTc: 422 Interpretive Statements SINUS RHYTHM POSSIBLE ANTERIOR MYOCARDIAL INFARCTION , OF INDETERMINATE AGE BORDERLINE ST-T WAVE ABNORMALITY- INF/HIGH LAT LEADS BASELINE ARTIFACT- I, II, AVR, AVL, AVF, V1-V6 ABNORMAL ECG Compared to ECG 03/01/2025 22:41:59 HEART RATE HAS INCREASED POSSIBLE ISCHEMIA NO LONGER PRESENT Electronically Signed On 08-14-2025 22:02:28 CDT by Alexis Joshi D.O.
[2025-08-14 18:09] LABS: Hematocrit 43.0 % (42.0-52.0); Hemoglobin 13.5 g/dL (14.0-18.0); Immature Granulocyte Percent A 0.0 % (0-0.5); Lymphocytes Absolute Auto 2.50 K/mm3 (0.9-3.2); Mean Corpuscular HGB Conc 31.4 g/dl (32-36); Mean Corpuscular Hemoglobin 26.8 pg (26-34); Mean Corpuscular Volume 85.3 fl (80-100); Nucleated Red Blood Cells Absolute Auto 0.000 K/mm3 (0.0-0.012); Nucleated Red Blood Cells Perc 0.0 % (0.0-0.2); Platelet Count Result 200 k/mm3 (150-375); Red Blood Count 5.04 M/mm3 (4.6-6.20); White Blood Count 7.0 K/mm3 (4.5-10.0)
[2025-08-14 18:22] LABS: Alanine Aminotransferase 23 U/L (6-50); Albumin Level 4.6 g/dL (3.5-5.1); Alkaline Phosphatase 71 U/L (38-126); Anion Gap 9 mmol/L (4-12); Aspartate Amino Transferase 30 U/L (17-59); Bilirubin,Total 0.6 mg/dL (0.2-1.3); Blood Urea Nitrogen 19 mg/dL (9-20); Calcium 9.3 mg/dL (8.4-10.2); Carbon Dioxide 28 mmol/L (22-30); Chloride 104 mmol/L (98-107); Estimated CRCL calculation 85 ml/min; Estimated Glomerular Filt Rate > 60; Glucose 101 mg/dL (65-110); Potassium 3.9 mmol/L (3.4-5.0); Sodium 141 mmol/L (137-145); Total Protein 9.3 g/dL (6.3-8.2)
--- NOTE | 2025-08-14 18:29 | ED.GENADULT ---
HPI - General Adult General Chief complaint: Weakness Stated complaint: lethargy Time Seen by Provider: 08/14/25 17:31 History of Present Illness HPI narrative: Patient is a 64-year-old male brought in by EMS from [facility] complaining of increased weakness. He is here with his 2 sisters. He has a history of a stroke in 2023 and open heart surgery back in 2014. The stroke impacted his right side and his speech. The weakness began this morning accompanied by slower speech compared to his baseline. Both sisters also endorse these changes. Patient demonstrates involuntary right-sided postural deviation corroborated by sisters as well as increased drooling compared to baseline according to family. Patient endorses no recent illness, medication changes, or surgeries. Denies fevers/chills, dysuria, hematuria, headache, vision changes, or dizziness. He endorses regular bowel movements and no changes in his appetite. Patient is A&O x4. He denies smoking, drinking or any other drug use. Related Data Home Medications ?Medication ?Instructions ?Recorded ?Confirmed ?Last Taken ?Type ipratropium 0.5 mg-albuterol 3 mg 3 ml inhalation Q12H 11/27/24 11/28/24 Unknown History (2.5 mg base)/3 mL nebulization soln Allergies Allergy/AdvReac Type Severity Reaction Status Date / Time lisinopril Allergy Unknown Verified 08/15/25 00:17 penicillin G Allergy Swelling Verified 08/15/25 00:17 Review of Systems Review of Systems: All systems reviewed & are unremarkable except as noted in HPI and below PMFSH Past Medical History Medical History CVA (cerebral vascular accident) January 2024 History of coronary artery disease Diabetes mellitus Hypertension Basilar artery stenosis Balance disorder 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 Impaired communication with impaired cognition Vision disturbance Brainstem stroke Surgical History Surgical History History of open heart surgery Family History Family History Other Controlled diabetes mellitus with hyperglycemia Social History Social History Smoking status: Current some day smoker Tobacco type: cigars Additional smoking assessment comments: 2 cigars a month Alcohol intake: former Substance use: never Substance use type: does not use Do You Feel Safe in your Home?: No Lack of Transportation: No Lack of Food: Never True Current Housing: I Have Housing Concerned About Future Housing: No Difficulty Paying Gas/Electric Bills: No Difficulty Paying for Meds: No Currently Unemployed: No Education: Bachelor's Degree Difficulty w/ Childcare or Family Care: No Living arrangements: with family Additional living arrangements comments: With sister Gender identity (if verbalized by the patient): Male Sexual Orientation (if Verbalized by the Patient): Straight or Heterosexual Spiritual care concerns: No Exam Narrative: GENERAL: Well appearing, well-nourished, non-toxic, in no acute distress. HEAD: Normocephalic, atraumatic. EYES: Eye patch over left eye due to stroke complications. PERRL/EOMI, horizontal nystagmus with both upwards and lateral eye movements. NOSE: Normal, no drainage EARS:TMS clear, with good light reflex. Mild bilateral erythema in external canals. No visible fluid or bulging TMs. THROAT: Pharynx clear, no exudate. MMs moist. NECK: Supple. No adenopathy, no masses. RESPIRATORY: Airway patent, respirations nonlabored. Clear to auscultation bilaterally, no rales, rhonchi, wheezing. CARDIOVASCULAR: Regular rate and rhythm without murmurs, rubs, or gallops. Peripheral pulses 2+ and equal bilaterally. ABDOMINAL: Soft, nontender, nondistended, no hepatosplenomegaly. Normoactive BS. MUSCULOSKELETAL: Moves all extremities. Right sided deficit at baseline although strength was equal bilaterally. Strength/ROM intact without gross deformities or TTP. No edema. No calf tenderness. SKIN: Warm, dry, normal color. No rashes. NEURO: A&O X3. Speech and articulation at baseline. Follows commands. CN II-XII intact. States decreased sensation to left jacobs compared to right. Wheelchair bound. Strength at baseline in upper and lower extremities bilaterally. Tqgofk-ju-ccsc testing left side intact, limit to other side due to baseline deficit. No pronator drift. Heel to jacobs limited by prior deficit. PSYCHIATRIC: Appropriate mood and affect. Normal interaction. Course Vital Signs Vital signs: Vital Signs Pulse Rate 76 08/14/25 16:46 Respiratory Rate 16 10/31/25 16:46 Blood Pressure 147/97 H 08/14/25 16:46 Pulse Oximetry 98 08/14/25 16:46 Pulse Rate 70 08/14/25 18:03 Respiratory Rate 16 08/14/25 16:46 Blood Pressure 147/97 H 08/14/25 16:46 Pulse Oximetry 98 08/14/25 16:46 Medical Decision Making MDM Narrative Medical decision making narrative: Patient is a 64-year-old male brought in by EMS from [facility] complaining of increased weakness. He is here with his 2 sisters. He has a history of a stroke in 2023 and open heart surgery back in 2014. The stroke impacted his right side and his speech. The weakness began this morning accompanied by slower speech compared to his baseline. Both sisters also endorse these changes. Patient demonstrates involuntary right-sided postural deviation corroborated by sisters as well as increased drooling compared to baseline. Patient endorses no recent illness, medication changes, or surgeries. Denies fevers/chills, dysuria, hematuria, headache, vision changes, or dizziness. He endorses regular bowel movements and no changes in his appetite. Patient is A&O x4. He denies smoking, drinking or any other drug use. CT non con demonstrated old lacunar infarcts at the left thalamus and more extensively in the right basal ganglia; no acute intracranial process; mild scattered white matter hypoattenuation consistent with chronic small vessel ischemic disease; and small right and moderate sized left mastoid effusions. Ear exam unremarkable. He is also maximized on stroke prevention therapy. Other source of weakness could be infection but there is no obvious source as labs are within normal limits, urinalysis indicated no UTI, COVID flu and RSV were negative, and chest x-ray showed no acute lung findings. EKG shows no acute ischemic changes. Patient's vital signs were monitored and remained stable during the encounter. Spoke extensively with patient's family and all questions were answered and utilized shared decision making. Family and patient are in agreement with discharge back to facility with close follow-up with PCP. Medical Records Medical records reviewed: Yes I reviewed the external patient's medical records. Vital Signs Vital Signs: Vital Signs Pulse Rate 76 08/14/25 16:46 Respiratory Rate 16 08/14/25 16:46 Blood Pressure 147/97 H 08/14/25 16:46 Pulse Oximetry 98 08/14/25 16:46 Pulse Rate 70 08/14/25 18:03 Respiratory Rate 16 08/14/25 16:46 Blood Pressure 147/97 H 08/14/25 16:46 Pulse Oximetry 98 08/14/25 16:46 Lab Data Lab results reviewed: Yes I reviewed the patient's lab results. 08/14/25 18:00 08/14/25 17:59 Labs: Lab Results 08/14/25 08/14/25 08/14/25 Range/Units 17:59 18:00 22:05 WBC 7.0 (4.5-10.0) K/mm3 RBC 5.04 (4.6-6.20) M/mm3 Hgb 13.5 L (14.0-18.0) g/dL Hct 43.0 (42.0-52.0) % MCV 85.3 (80-100) fl MCH 26.8 (26-34) pg MCHC 31.4 L (32-36) g/dl RDW 14.0 (11.5-14.5) % Plt Count 200 (150-375) k/mm3 MPV 8.6 (7.4-10.4) fl Immature Gran % (Auto) 0.0 (0-0.5) % Neut % (Auto) 56.4 (45.5-73.1) % Lymph % (Auto) 35.8 (18.3-44.2) % Madison % (Auto) 6.0 (2.6-8.5) % Eos % (Auto) 1.7 (0-4.4) % Baso % (Auto) 0.1 L (0.2-1.2) % Lymph # (Auto) 2.50 (0.9-3.2) K/mm3 Madison # (Auto) 0.4 (0.1-0.6) K/mm3 Eos # (Auto) 0.1 (0-0.3) K/mm3 Baso # (Auto) 0.0 (0.0-0.1) K/mm3 Abs Immat Gran (auto) 0.00 (0.00-0.031) K/mm3 Absolute Neuts (auto) 3.9 (1.3-6.7) K/mm3 Absolute Nucleated RBC 0.000 (0.0-0.012) K/mm3 Nucleated RBC % 0.0 (0.0-0.2) % Sodium 141 (137-145) mmol/L Potassium 3.9 (3.4-5.0) mmol/L Chloride 104 (98-107) mmol/L Carbon Dioxide 28 (22-30) mmol/L Anion Gap 9 (4-12) mmol/L BUN 19 (9-20) mg/dL Creatinine 1.04 (0.7-1.3) mg/dL Estim Creat Clear Calc 85 ml/min Estimated GFR > 60 (59 - ) Glucose 101 (65-110) mg/dL Calcium 9.3 (8.4-10.2) mg/dL Total Bilirubin 0.6 (0.2-1.3) mg/dL AST 30 (17-59) U/L ALT 23 (6-50) U/L Alkaline Phosphatase 71 (38-126) U/L Total Protein 9.3 H (6.3-8.2) g/dL Albumin 4.6 (3.5-5.1) g/dL Urine Color Yellow (Yellow) Urine Appearance Clear (Clear) Urine pH 6.5 (5.0-9.0) Ur Specific [place] 1.026 (1.001-1.035) Urine Protein Negative (Negative) mg/dL Urine Glucose (UA) Negative (Negative) mg/dL Urine Ketones Trace H (Negative) mg/dL Ur Blood (Man) Negative (Negative) Urine Nitrate Negative (Negative) Urine Bilirubin Negative (Negative) Urine Urobilinogen 1.0 (<2.0) mg/dL Leukocyte Esterase Rfl Trace H (Negative) PRIMITIVO/UL Urine RBC 0-2 (0-2) /hpf Urine WBC 0-5 (0-3) /hpf Ur Squamous Epith Cells None seen (Few) /hpf Urine Bacteria None seen /hpf Urine Casts 0-2 Influenza A (RT-PCR) Negative (Negative) Influenza B (RT-PCR) Negative (Negative) RSV (RT-PCR) Negative (Negative) SARS-CoV-2 RNA (RT-PCR) Negative (Negative) Imaging Data Attestation: I personally reviewed and interpreted this imaging study as follows: Radiologist's impression: ITS Impressions Head CT 08/14/25 18:48 IMPRESSION: 1. Old lacunar infarcts at the left thalamus and more extensively in the right basal ganglia. No acute intracranial process. 2. Mild scattered white matter hypoattenuation consistent with chronic small vessel ischemic disease. 3. Small right and moderate sized left mastoid effusions. Chest X-Ray 08/14/25 19:09 IMPRESSION: No acute lung findings.] [ ] ECG Data EKG #1: Attestation: I personally reviewed and interpreted this ECG as follows: ECG completion date: 08/14/25 ECG completion time: 20:25 EKG Interpretation: normal rate, sinus rhythm and no ST changes Discharge Plan Discharge Clinical Impression: Generalized weakness, Slow rate of speech Patient Disposition: NH Retirement/Asst Living Condition: Stable Additional Instructions: Return to the emergency department if you experience fever, chest pain, shortness of breath, abdominal pain with nausea and vomiting, weakness, numbness/tingling, or any other symptoms that are concerning to you. I recommend an increase in fluid intake, maintain a healthy diet, and wash hands and sanitize regularly to reduce infection risk. Follow up with primary care doctor Patient Language: Niuean Prescriptions: No Action ipratropium-albuterol 0.5 mg-3 mg(2.5 mg base)/3 mL Solution For Nebulization 3 ml INHALATION Q12H ondansetron 4 mg tablet,disintegrating 4 mg PO Q8H PRN (Reason: nausea and vomiting) Qty: 10 0RF benzonatate 100 mg Capsule 100 mg PO TID PRN (Reason: cough) Qty: 30 0RF cetirizine 10 mg Tablet 10 mg PO DAILY Qty: 30 0RF polyethylene glycol 3350 [Miralax] 17 gram Powder In Packet 17 g PO QAM Qty: 30 0RF atorvastatin 40 mg Tablet 40 mg PO HS Qty: 30 0RF buspirone 5 mg Tablet 5 mg PO BID Qty: 60 0RF acetaminophen 325 mg Tablet 650 mg PO Q6H PRN (Reason: unknown) Qty: 90 0RF insulin glargine [Lantus U-100 Insulin] 100 unit/mL solution 5 unit subcut QPM Qty: 10 0RF clopidogrel 75 mg Tablet 75 mg PO DAILY Qty: 30 0RF famotidine 20 mg Tablet 20 mg PO BID Qty: 60 0RF amlodipine 10 mg Tablet 10 mg PO DAILY Qty: 30 0RF aspirin 81 mg Tablet,Chewable 81 mg PO DAILY Qty: 30 0RF folic acid 1 mg Tablet 1 mg PO DAILY Qty: 30 0RF Multiple Vitamin-Minerals Tablet 1 tablet PO DAILY Qty: 30 0RF guaifenesin [Mucus Relief ER] 600 mg Tablet Extended Release 12hr 600 mg PO BID Qty: 60 0RF Follow-up/Referrals: UNKNOWN,DOCTOR [Non-Staff]
--- OUTSIDE RECORDS SUMMARY | 2025-08-14 18:33 | XMS_ITS | Encounter Summary ---
Author Organization [facility] Address [address] [facility] [place] [address] Care Team Providers Care Administration Professional Name Role Phone Lisy Olmedo MD Primary Care Provide r Sylvain Daniels MD Primary Care Provider + [phone] None, Physician Primary Care Provider Unavailabl e Sylvain Daniels MD Unavailable [phone] Sylvain Daniels MD Unavailable [phone] Sylvain Daniels MD Unavailable [phone] Sylvain Daniels MD Primary Care Provider + [phone] Kiana Cole MD Primary Care Provider Sean Kyel MD Primary Care Provider [phone] Kiana Cole MD Primary Care Provider Reason for Visit * Reason Onset Date Comments MEDICATION REFILL 11/19/2021 Encounter Details Date Type Department Care Team (Late st Contact Info) Description 11/19/2021 Refill [facility] [address] 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 documented in this encounter Plan of Treatment Not on file documented as of this encounter Visit Diagnoses Diagnosis Erectile dysfunction, unspecified erectile dysfunction type documented in this encounter Additional Health Concerns Infection Onset Date Last Indicated Resolved Time COVID-19 Under Investigation 07/26/2022 07/26/2022 07/26/2022 5:54 PM CDT COVID-19 Under Investigation 04/10/2024 04/10/2024 04/10/2024 2:48 PM CDT documented as of this encounter Care Teams Administration Professional Relationship Specialty Start Date End Date Lisy Olmedo MD PCP - General 04/20/09 05/09/22 Sylvain Daniels MD PCP - General Family Medicine 05/10/22 02/14/24 None, Physician [address] [place] [address] PCP - General 02/15/24 05/16/24 Sylvain Daniels MD [address] [place] [address] PCP - Attributed-[employer] 05/15/22 10/01/22 Sylvain Daniels MD [address] [place] [address] PCP - Attributed-[employer] 02/12/23 04/01/23 Sylvain Daniels MD [address] [place] [address] PCP - General Family Medicine 05/17/24 05/19/24 Kiana Cole MD [address] [place] [address] PCP - General Internal Medicine 05/22/24 08/04/24 Sean Kyle MD [address] [place] [address] PCP - General Internal Medicine 08/05/24 09/15/24 Kiana Cole MD [address] [place] [address] PCP - General Internal Medicine 09/16/24 Sylvain Daniels MD Family Medicine 02/15/24 documented as of this encounter
--- OUTSIDE RECORDS SUMMARY | 2025-08-14 18:33 | XMS_ITS | Clinical Summary ---
Author Organization [facility] Address [address] [place] [address] Care Team Providers Care Children'S Service Worker Name Role Phone Sean Kyle MD Primary Care Provider [phone] Allergies Active Allergy Reactions Criticality Noted Date [...] Date Confusion 05/25/2024 Near syncope 05/22/2024 Asthma 05/22/2024 Dysphagia following cerebral infarction 03/19/20 24 Cerebrovascular accident 03/12/2024 Staphylococcus aureus infection 02/08/2024 Hyperlipidemia 08/05/2020 Overview [...] LDL-C. Mika EATON et al. RAFFI. 2013;310(19): 9498-1433 (http://education.[employer]/faq/XOG824) CHOL/HDLC RATIO <5.0 (calc) 5.3High Non HDL [...] needs weight loss desperately and referred to hose coupling joiner asked him to stop naproxen Atherosclerosis of coronary artery 01/23/2018 Overview (05/22/2024): Last Assessment & Plan: without angina needs more aggressive RFM continue aspirin Controlled type 2 diabetes francisco carney without complication, without long-term current use of insulin 09/28/2011 Resolved Problems Problem Noted Date Diagnosed [...] History of ETOH use prior to stroke [facility] Utilities Answer Date Recorded In the past 12 months has e Attributor, gas, oil, or water [employer] threatened to shut off services in your [...] any time in the past 12 m [facility], were you homeless or living in a senior living (including now)? Patient unable to answer 05/23/2024 [...] 11/05/2018, 02/29/2012 Annual Medicare Wellness Visit 2023 Hemoglobin A1C 11/22/2024 05/22/2024, 01/13, 09/17/2023, Additional history exists Lipid Panel 01/23/2025 01/24/2024 COVID-19 Vaccine ( - season) 2025 09/17/2023 Influenza Adult (#1) 2025 09/17/2023, 06/29/2019, 09/03/2018, Additional history exists Hepatitis A Vaccines Aged Out No long er eligible based on patient's age to complete this topic Meningococcal B Vaccine Aged Out No l [...] 7.4(H) <5.7 % 05/23/2024 1:29 AM CDT [facility] Comment: ADA GUIDELINES 2010 5.7 TO 6.4% INCREASED RISK OF DIABETES > OR = 6.5% CONSISTENT WITH DIABETES ESTIMATED AVG GLUCOSE 166 mg/dL 05/23/2024 1:29 AM CDT [facility] 05/22/2024 6:25 PM CDT Yaritza Cowart NP LABORATORY Final Result [facility] [address] [place] [address], from Last 3 Months or Most Recently Relevant to Health Maintenance Insurance MEDICARE Advance Directives * Full Code (Latest Code Status on File) Date Activated Date Inactivated Comments 05/22/2024 11:15 PM 05/25/2024 9:20 PM Care Teams Children'S Service Worker Relationship Specialty Start Date End Date Sean Kyle MD [address] [address] PCP - General INTERNAL MEDICINE 05/22/24
--- OUTSIDE RECORDS SUMMARY | 2025-08-14 18:33 | XMS_ITS | Encounter Summary ---
Author Organization [facility] Address [address] [facility] [place] [address] Care Team Providers Care Packing Shed Supervisor Name Role Phone Lisy Olmedo MD Primary Care Provide r Sylvain Daniels MD Primary Care Provider + [phone] None, Physician Primary Care Provider Unavailabl e Sylvain Daniels MD Unavailable [phone] Sylvain Daniels MD Unavailable [phone] Sylvain Daniels MD Unavailable [phone] Sylvain Daniels MD Primary Care Provider + [phone] Kiana Cole MD Primary Care Provider Sean Kyle MD Primary Care Provider [phone] Kiana Cole MD Primary Care Provider Reason for Visit * Reason Onset Date Comments MEDICATION REFILL 05/13/2021 Encounter Details Date Type Department Care Team (Late st Contact Info) Description 05/13/2021 Refill [facility] [address] [facility] [address] [place] [address] Lisy Olmedo MD [address] [place] [phone] MEDICATION REFILL Social History Tobacco Use Types [...] 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 [...] documented as of this encounter Care Teams Packing Shed Supervisor Relationship Specialty Start Date End Date Lisy Olmedo MD PCP - General 04/20/09 05/09/22 Sylvain Daniels MD PCP - General Family Medicine 05/10/22 02/14/24 [facility], Physician [address] [place] [address] PCP - General 02/15/24 05/16/24 Sylvain Daniels MD [address] [place] [address] PCP - Attributed-[employer] Commercial 05/15/22 10/01/22 Sylvain Daniels MD [address] [place] [address] PCP - Attributed-[employer] [address] 02/12/23 04/01/23 Sylvain Daniels MD [address] [place] [address] PCP - General Family Medicine 05/17/24 05/19/24 Kiana Cole MD [address] [place] [address] PCP - General Internal Medicine 05/22/24 08/04/24 Sean Kyle MD [address] [place] [id number] PCP - General Internal Medicine 08/05/24 09/15/24 Kiana Cole MD [address] [place] [address] PCP - General Internal Medicine 09/16/24 Sylvain Daniels MD Family Medicine 02/15/24 documented as of this encounter
--- OUTSIDE RECORDS SUMMARY | 2025-08-14 18:33 | XMS_ITS | Data Portability ---
Author Organization [place] - [facility] [employer], Main Office Address [address] [place] [address] Assessment Encounter Date Assessment Date Assessment LastModified by Organization Details LastModified Time 08/26/2024 08/26/2024 Removal of PEG tube today in the office. Instructed to remove occlusive dressing in 72 hours, f/u PRN. [email or web address] Not available 08/27/2024 12:12:08 11/06/2024 11/06/2024 This note is dictated and transcribed by [employer]. Salvage Laborer variances may occur. Despite proofreading, typographical errors may occur. Occasional wrong-word or 'etauw-t-ibep' substitutions may have occurred due to the inherent limitations of voice recording. Read the chart carefully and recognize, using context, where substitutions have occurred. Not available 11/06/2024 12:07:29 03/05/2025 03/05/2025 This note is dictated and transcribed by [employer]. Salvage Laborer variances may occur. Despite proofreading, typographical errors may occur. Occasional wrong-word or 'nggpp-w-vpru' substitutions may have occurred due to the inherent limitations of voice recording. Read the chart carefully and recognize, using context, where substitutions have occurred. Not available 03/05/2025 12:42:01 Plan of Treatment Reminders Order Date Submit Date Provider Last Modified By Organization Details Last Modified Time Details Appointments None recorded. Lab None recorded. Referral None recorded. Procedures None recorded. Surgeries None recorded. Imaging None recorded. Medication Orders ketoconazol e 2 % topical cream 2024 025 [facility] #[id number], [address] [facility], [place], [place], [id number], 12:09:37 Patient TargetsNo targets recorded. Patient Instructions Encounter Date Encounter Id Patient Instructions Last Modified By Organization Details Last Modified Time 11/06/2024 [id number] diabetic neuropathy education Not available 11/06/2024 12:09:29 diabetes foot health: care instructions Not available 11/06/2024 12:09:29 03/05/2025 [id number] diabetic foot care education Not available 03/05/2025 12:42:30 Reason for Referral None Reported. Problems Name Problem SNOMED Code Status Onset Date Resolution Date Notes Provider Name and Address Organization Details Recorded Time Difficulty eating 054222638 Active 2023 Isaac varghese MD [address], [address], [place], [address], [employer] [facility] 12:12:51 Diabetic peripheral neuropathy 182580428 Active 2024 Bernabe Rodriguez DPM [address], [address], [place], [address], [employer] 12:07:37 Onychomycosis of toenails 214044757 Active 2024 Bernabe Rodriguez DPM [address], [address], [place], [address], [employer] 12:07:41 Diabetes mellitus 02972565 Active 2024 Bernabe Rodriguez DPM [address], [address], [place], [address], [employer] [facility] 12:09:09 Hypertensive disorder 70896303 Active 2024 Bernabe Rodriguez DPM [address], [address], [place], [address], [employer] [facility] 12:39:43 Asthma 404370140 Active 2024 Bernabe Rodriguez DPM [address], [address], [place], [address], [employer] 12:39:52 Heart disease 87073051 Active 2024 Bernabe Rodriguez DPM [address], [address], [place], [address], [employer] [facility] 12:40:04 Eczema 63593331 Active 2024 Bernabe Rodriguez DPM [address], [address], [place], [address], [employer] 12:40:13 Cerebrovascula r accident 722620967 Active 2024 Bernabe Rodriguez DPM [address], [place], [address], [employer] 12:40:25 Disorder of eye 384664615 Active 2024 Bernabe Rodriguez DPM [address], [place], [address], [employer] 12:40:39 Dystrophia unguium 24038637 Active 2024 Bernabe Rodriguez DPM [address], [place], [address], [employer] 12:41:57 Problem Notes None recorded. Procedures Surgical History Date Name Laterality Status Provider Name and Address Organization Details Recorded Time 5 Nail Debridement completed Bernabe Rodriguez DPM [address], [address], [place], [address], [employer] 03/05/2025 12:41:40 5 Nail Debridement completed Bernabe Rodriguez DPM [address], [place], [address], [employer] 11/06/2024 12:07:26 4 Blank Procedure Note completed Isaac jama MD [address], [place], [address], [facility] 08/26/2024 17:27:52 4 other completed Andreia Dobson MA [facility] 08/26/2024 11:53:51 other completed Andreia Dobson MA [facility] 08/25/2024 10:57:07 Imaging Results None recorded. Procedure Notes None recorded. Medical Equipment None Reported. Allergies Allergen ID Allergen Name Allergen Category Reaction Reaction Severity Criticality Documentation Date Start Date Code Code System Note Provider Name and Address Organization Details Recorded Time 37350 lisinopri l medicatio n Not available Not available Not available 08/25/2024 32554 RxNorm DEYVI Proctor [facility] 10:57:24 62620 Product containin g penicilli n (product) medicatio n Not available Not available Not available 08/25/2024 45472 8001 SNOMED DEYVI Proctor [facility] 10:57:59 Medications Name Sig Start [...] active Not Available Not Available Not Available Lantus Solostar U-100 Insulin 100 unit/mL (3 mL) subcutaneous pen ADMINISTER 15 UNITS UNDER THE SKIN EVERY NIGHT AT BEDTIME active Not Available Not Available No t Available Ultra-Fine Pen Needle 31 gauge x 5/16 USE FOR INJECTIONS THREE TIMES DAILY active Not Available Not Available No t Available Vitals Date Recorded Body height Body mass index (BMI) Body weight Provider Name and Address Organization Details Last Updated DateTime 11/06/2024 193.04 cm 32.3 kg/m2 279326.98 g Lucita Gotti [facility] [employer] 11/06/2024 11:25:08 Date Recorded Body height Body mass index (BMI) Body weight Provider Name and Address Organization Details Last Updated DateTime 03/05/2025 193.04 cm 32.3 kg/m2 540125.98 g Lucita Gotti [facility] [employer] 03/05/2025 11:25:00 Date Recorded Body height Body mass index (BMI) Body weight Provider Name and Address Organization Details Last Updated DateTime 08/26/2024 193.04 cm 32.3 kg/m2 938980.98 g Andreia Dobson [place] [facility] [employer] 08/26/2024 11:52:41 Social History Question Answer Notes LastModified by [employer]at [employer] ([employer]) Details LastModified Time Tobacco Smoking Status Former Smoker Andreia Dobson MA null, [facility] [employer] [facility] 08/25/2024 10:55:58 What Is Your Level Of Caffeine Consumption? None Information not available 08/26/2024 What Was The Date Of Your Most Recent Tobacco Screening? 11/06/2024 Information not available 11/06/2024 Has Tobacco Cessation Counseling Been Provided? No Information not available 11/06/2024 Sex: Unknown Functional Status Question Answer Note LastModified by Organizat ion Details LastModified Time Do you use any [...] Diagnosis SNOMED-CT Code Diagnosis ICD10 Code Diagnosis IMO Codes Diagnosis Note [id number] Isaac cordova MD [facility] General Surgery [address], [address] [place] [address] 08/26/2024 11:10:15 09/10/2024 11:42:25 Difficulty eating 713168488 R63.30 [id number] Bernabe Rodriguez DPM [facility] [place] [address] [place] [address] 11/06/2024 11:17:27 11/07/2024 13:46:01 Diabetes mellitus 24298752 E11.40 continue diabetic control per PCP recommenda tions Diabetic p eripheral neuropathy 874758542 E11.40 check feet daily for wounds infection present seek medical attention immediatel yFollow-up 3 months for diabetic foot care recommend supportive shoe gear daily Onychomyco sis of toenails 228470847 B35.1 Nails 1 through 10 were debrided with sharp mechanical debridemen t without incident. Nails were debrided and greater than 50% length and thickness where needed. [id number] Bernabe Rodriguez DPM [facility] [place] [address] [place] [address] 03/05/2025 11:21:59 03/06/2025 11:39:28 Diabetes mellitus 12695448 E11.40 continue diabetic control per PCP recommenda tions Cerebrovas cular accident 807975213 I63.9 Dystrophia unguium 00119 009 L60.3 1009 Nails 1 through 10 were debrided with [...] Member ID Joe Member ID Guarantor Name 06/08/2025 1 [place] Yaya Vazquez Jr [id number] Yaya Vazquez Notes Date Note Type [...] flush twice daily. Isaac Ruiz MD [address], [place], [address], [employer] 08/27/2024 12:13:21 11/06/2024 text/html . Patient is [...] any other complaints. Bernabe Rodriguez DPM [address], [place], [address], [facility] 11/06/2024 12:41:11 03/05/2025 text/html . Patient is [...] any other complaints. Bernabe Rodriguez DPM [address], [place], [address], [employer] [facility] 03/05/2025 12:42:42
--- OUTSIDE RECORDS SUMMARY | 2025-08-14 18:34 | XMS_ITS | Clinical Summary ---
Author Organization [facility] Address [address] [facility] [place] [address] Care Team Providers Care Bed Spring Maker Name Role Phone Sylvain Daniels MD Unavailable [phone] Kiana Cole MD Primary Care Provider Source Comments [facility],non-owned Affiliates and Associated Physician Practices is amultiple site organization consisting of ambulatory clinics and hospital sitesin [place], [place], [place] and [place]. This disclosure is being madepursuant to the Care Everywhere program and may not contain all information available regarding this patient. Last updated 18.[facility] Allergies Active Allergy Reactions Criticality Noted [...] with long-term current use of insulin 05/21/2024 carbonator (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 Mika SS et al. RAFFI. 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 Not on file Not on file 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 Not on file Not on file Last Filed Vital Signs Vital Sign Reading Time Taken Comments Blood Pressure 110/76 03/11/2025 9:11 AM CDT Pulse 77 03/11/2025 9:11 AM CDT Temperature 36.7 C (98 F) 03/11/2025 9:11 AM CDT Respiratory Rate 10 08/29/2024 8:44 AM MEDICAL BILLING REPRESENTATIVE Oxygen Saturation 95% 03/11/2025 9:11 AM CDT [...] PCV) 11/05/2019 11/05/2018, 02/29/2012 AAA SCREENING 2023 DIABETES - URINE PROTEIN SCREENING 10/15/2024 07/23/2020, 01/20/2019, 11/19/2015 DIABETES-SERUM CREATININE 06/04/20252023, 06/03/2024, 06/02/2024, Additional history exists COVID-19 VACCINE ( season) 2025 09/17/2023, 09/17/2023, 03/31/2022, Additional history exists INFLUENZA VACCINE (#1) 2025 [...] HEMOGLOBIN A1C - POINT OF CARE (AMB) [facility] Routine 03/11/2025 Type 2 diabetes mellitus with diabetic polyneuropathy, with long-term current use of insulin (HCC) EYE EXAM 08/11/2024 BASIC METABOLIC PANEL (CALCIUM TOTAL) Routine 06/04/2024 11:30 AM CDT ENDOSCOPY, COLON, SCREENING Routine 11/12/2020 12:12 PM MEDICAL BILLING REPRESENTATIVE MICROALB/CREAT RATIO URINE RANDOM PANEL 07/23/2020 6:49 AM CDT HEPATITIS C AB W/RFLX TO HCV RNA QN PCR 07/23/2020 6:49 AM CDT from Last 3 Months or Most Recently Relevant to Health Maintenance Results * (ABNORMAL) HEMOGLOBIN A1C - POINT OF CARE (AMB) [facility] (03/11/2025) Hemoglobin A1c POCT 6.3(A) 4.2 - 5.8 [...] al Result [facility] [address] [place] [address], [facility] [phone] * ENDOSCOPY, COLON, SCREENING (11/12/2020 12:12 PM MEDICAL BILLING REPRESENTATIVE) Report Endoscopy POC Endoscopy Department Report _ [...] colon K64.8, Other hemorrhoids CPT copyright 2019 [employer]. All rights reserved. The codes documented in this report are preliminary and upon balance wheel screw hole tapper review may be revised to meet current compliance requirements. Jodi Vernon MD 11/12/2020 12:57:40 PM Note Initiated On: 11/12/2020 12:12 PM Number of Addenda: [id number] [place] [address] MATTHEW 11/12/2020 12:1 2 PM MEDICAL BILLING REPRESENTATIVE Jodi Vernon MD GI PROCEDURE ORDERABLES Ed ited Result - Final [facility] * HEPATITIS C AB W/RFLX TO [...] a test for HCV RNA (test code 65777) is suggested. For additional information please refer to http://education.Dajiab[employer]/faq/OLR23r6 (This link is being provided for informational/ educational purposes only.) Test Performed at: [employer] [facility] [place] [address] EH PURVIS DO,MPH 07/23/2020 6:49 AM CDT 07/23/2020 6:51 AM CDT Lisy Olmedo MD LAB - CHEMISTRY ORDER GISSEL Final Result [facility] [id number] [place] [address] * MICROALB/CREAT RATIO URINE RANDOM PANEL (07/23/2020 6:49 AM CDT) Pathologist [facility] Creatinine Urine 270 20 - 320 mg/dL [...] within a diagnostic category. Test Performed at: [place] [address] EH PURVIS DO,MPH 07/23/2020 6:49 AM CDT 07/23/2020 6:51 AM CDT us Lisy Olmedo MD LAB - URINE CHEMISTRY ORDERABLES Final Result [facility] [id number] [place] [address] from Last 3 Months or Most Recently Relevant to Health Maintenance Insurance MEDICARE [facility] MEDICARE Advance Directives Documents on File Type Date Recorded Patient Study Manager Expl anation Durable HCPOA 09/17/2024 4:08 PM [...] on File Name Relationship Healthcare Agent Relationshi cedric Barajas (POA) Rafi Sister Power of Licensed Veterinary Technician (P OA) Care Teams Bed Spring Maker Relationship Specialty Start Date End Date Kiana Cole MD [address] [place] [address] PCP - General Internal Medicine 09/16/24 Sylvain Daniels MD Family Medicine 02/15/24
--- OUTSIDE RECORDS SUMMARY | 2025-08-14 18:34 | XMS_ITS | Encounter Summary ---
Author Organization [facility] Health Address [address] [facility] [place] [address] Care Team Providers Care Manual Winder Name Role Phone Sylvain Daniels MD Unavailable [phone] Kiana Cole MD Primary Care Provider Sean Kyle MD Primary Care Provider [phone] Kiana Cole MD Primary Care Provider Reason for Visit * Reason Onset Date Comments Future Appointment 06/10/2024 Encounter Details Date Type Department Care Team (Late st Contact Info) Description 06/10/2024 Telephone [facility] - Cardiology [address] [facility], [address] [place] [address] Andrae Norton MD [address] [facility] [place] [address] Future Appointment Social History Tobacco [...] Recorded Patient Health Questionnaire-2 Score 0 06/04/2024 [facility] of Occupat ional Health - [...] 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 Answer Date of Assessment Author No 05/26/2024 6:37 AM CDT Triny Irizarry RN * Is person blind or have serious difficulty seeing? Answer Date of Assessment Author No 05/26/2024 6:37 AM SHIKHAT Triny Irizarry RN * Does person have serious difficulty walking/climbing stairs? Answer Date of Assessment Author Yes 05/26/2024 6:37 AM SHIKHAT Triny Irizarry RN * Does person have difficulty dressing/bathing? Answer Date of Assessment Author Yes 05/26/2024 6:37 AM SHIKHAT Triny Irizarry RN * Does person have difficulty doing errands alone? Answer Date of Assessment Author Yes 05/26/2024 6:37 AM Triny Mcarthur RN documented as of this encounter Mental Status * Does person have difficulty concentrating/remembering/making decisions? Answer Entry Date Author No 05/26/2024 6:37 AM CDT Triny Medellin RN documented in this encounter Miscellaneous Notes [...] on filedocumented in this encounter Care Teams Manual Winder Relationship Specialty Start Date End Date Kiana Cole MD [address] [place] [address] PCP - General Internal Medicine 05/22/24 08/04/24 Sean Kyle MD [address] [place] [address] PCP - General Internal Medicine 08/05/24 09/15/24 Kiana Cole MD [address] [place] [address] PCP - General Internal Medicine 09/16/24 Sylvain Daniels MD Family Medicine 02/15/24 documented as of this encounter
--- OUTSIDE RECORDS SUMMARY | 2025-08-14 19:32 | XMS_ITS | CCD ---
Author Name Saroj DAVIS, Dr Amanda escalona Address [address] [place] [address] Phone Organization [facility] Phone Care Team Providers Care Fur Sorter Name Role Phone Unavailable Primary Care Provider Unavailabl e Unavailable Chronic Care Management Unavaila ble Summary Purpose DataExchange Insurance Providers Payer name Policy type / Coverage type Covered constitution party ID Effective Begin Date Effective End Date [place] [id number] Unknown Family history Sister Diagnosis Age At [...] No Inactive Date Active LISINOPRIL angioedema RxNorm: 52616 05/21/2024 No Inactive D ate Active Penicillin [...] Syncope ICD-10: R55 ICD-9: 780.2 06/24/2024 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 05/21 Active Urinary incontinence ICD-10: R32 ICD-9: 788.30 05/21/2024 Active Medications Medication Codes Instructions Start Date Stop Date Status Fill Instructions ipratropium 0.5 mg-albuterol 3 mg (2.5 mg base)/3 mL nebulization soln RxNorm: 1588676 Inhale 3 Milliliter(s) Inhalation every 6 hours as needed for shortness of breath 4 11/19/19 25 Inactive albuterol sulfate HFA 90 mcg/actuation aerosol inhaler RxNorm: 6424631 Administer 2 Puff(s) Inhalation every 4 to 6 hours 4 12/20/19 25 Inactive buspirone 5 mg tablet RxNorm: 849568 Take 1 Tablet(s) Oral three times a day 4 10/26/19 25 Inactive Senna Plus 8.6 mg-50 mg tablet RxNorm: 673053 Take 2 Tablet(s) Oral two times a day as needed for constipation 4 07/28/20 24 Inactive multivitamin tablet RxNorm: Take 1 Tablet(s) Oral every day 4 10/20/19 26 Active buspirone 5 mg tablet RxNorm: 643543 Take 1 Tablet(s) Oral two times a day 4 10/16/19 26 Active polyethylene glycol 3350 17 gram/dose oral powder RxNorm: 683969 Use 1 Unit Dose Oral every day Mix 17g (one capful) with 8oz liquid. Hold for loose stools. 4 08/17/20 25 Active ipratropium 0.5 mg-albuterol 3 mg (2.5 mg base)/3 mL nebulization soln RxNorm: 5195576 Administer 3 Milliliter(s) Inhalation every 6 hours as needed for shortness of breath 4 08/22/20 24 Inactive buspirone 5 mg tablet RxNorm: 025724 Take 1 Tablet(s) Oral three times a day 07/23/20 24 Inactive aspirin 81 mg chewable tablet RxNorm: 510286 Take 1 Tablet(s) Feeding Tube / PEG every day 08/13/20 25 Inactive atorvastatin 40 mg tablet RxNorm: 038337 Take 1 Tablet(s) Feeding Tube / PEG every night at bedtime 08/13/20 25 Inactive amlodipine 10 mg tablet RxNorm: 254466 Take 1 Tablet(s) Feeding Tube / PEG once daily 08/13/20 25 Inactive clopidogrel 75 mg tablet RxNorm: 893871 Take 1 Tablet(s) Feeding Tube / PEG once daily 08/13/20 25 Inactive famotidine 20 mg tablet RxNorm: 599578 Take 1 Tablet(s) Feeding Tube / PEG two times a day 08/13/20 25 Inactive thiamine HCl (vitamin B1) 100 mg tablet RxNorm: 721875 Take 1 Tablet(s) Feeding Tube / PEG every day 08/13/20 25 Inactive folic acid 1 mg tablet RxNorm: 410306 Take 1 Tablet(s) Feeding Tube / PEG every day 08/13/20 25 Inactive multivit-mineral -folic acid 333 mcg-lutein 3 mg-zeaxant 0.67 mg tablet RxNorm: Take 1 Tablet(s) Oral every day 4 No Stop Date Active Lantus Solostar U-100 Insulin 100 unit/mL (3 mL) subcutaneous pen RxNorm: 635631 Administer 15 Unit(s) Subcutaneous every night at bedtime 08/13/20 25 Inactive loratadine 10 mg tablet RxNorm: 274552 Take 1 Tablet(s) Feeding Tube / PEG every day 08/13/20 25 Inactive Senna Plus 8.6 mg-50 mg tablet RxNorm: 364556 Take 2 Tablet(s) Feeding Tube / PEG two times a day as needed for constipation 4 07/29/20 24 Inactive Pen Needle 31 gauge x 5/16 RxNorm: Take 1 Pen Needle Subcutaneous three times a day 08/13/20 25 Inactive albuterol sulfate HFA 90 mcg/actuation aerosol inhaler RxNorm: 4973402 Administer 2 Puff(s) Inhalation every 4 to 6 hours 4 05/21/20 24 Inactive Medication Administered No Medication Administered data Results Observation Observation Code Item Item Code Result Date Service Location PTH 49700 PTH 2731-8 21.7 pg/mL 024 [facility] [address] [place] [address] 46376 VITAMIN B-12 20796 Vitamin B12 2132-9 609 pg/mL 05/22 024 [facility] [address] [place] [address] 52202 [id number] IN [facility]8- Glyco HGB A1C 69556-1 7.0 % 024 [facility] [address] [place] [address] 85613 [id number] IN [facility] eAG 40357-1 154 mg/dL 024 [facility] [address] [place] [address] 79269 TSH 23229 TSH 05687-3 2.540 uIU/mL 024 [facility] [address] [place] [address] CHEM 14 (METABOLIC PANEL) 64242 Glucose 2345-7 138 mg/dL 024 [facility] [address] [place] [address] 77696 CHEM 14 (METABOLIC PANEL) 75440 BUN 3094-0 21 mg/dL 024 [facility] [address] [place] [address] 92862 CHEM 14 (METABOLIC PANEL) 86005 Creatinine 2160-0 0.8 mg/dL 024 [facility] [address] [place] [address] CHEM 14 (METABOLIC PANEL) 63546 BUN/Creat Ratio 3097-3 25.7 024 [facility] [address] [place] [address] 32202 CHEM 14 (METABOLIC PANEL) 35695 GFR Estimated 53812-6 97 mL/min/1. 73m2 024 [facility] [address] [place] [address] 39352 CHEM 14 (METABOLIC PANEL) 13361 Sodium 2951-2 139 mmol/L 024 [facility] [address] [place] [address] 58753 CHEM 14 (METABOLIC PANEL) 13809 Potassium 2823-3 4.0 mmol/L 08/08/2 024 [facility] [address] [place] [address] 50218 CHEM 14 (METABOLIC PANEL) 02867 Chloride 2075-0 98 mmol/L 024 [facility] [address] [place] [address] 90617 CHEM 14 (METABOLIC PANEL) 53468 Total CO2 2028-9 30 mmol/L 024 [facility] [address] [place] [address] 63597 CHEM 14 (METABOLIC PANEL) 41490 Anion Gap 1863-0 15.0 mEq/L 024 [facility] [address] [place] [address] 79204 CHEM 14 (METABOLIC PANEL) 57226 Calculated Serum Osmolality 49789-3 293 mOsm/kg 024 [facility] [address] [place] [address] 33361 CHEM 14 (METABOLIC PANEL) 86002 Albumin 19764-1 3.1 g/dL 024 [facility] [address] [place] [address] 84349 CHEM 14 (METABOLIC PANEL) 64907 Total Protein 2885-2 7.5 g/dL 024 [facility] [address] [place] [address] 91231 CHEM 14 (METABOLIC PANEL) 34702 Globulin 2336-6 4.4 g/dL 024 [facility] [address] [place] [address] 40930 CHEM 14 (METABOLIC PANEL) 31797 Albumin/Globulin Ratio 1759-0 0.7 024 [facility] [address] [place] [address] 76584 CHEM 14 (METABOLIC PANEL) 08705 ALK PHOS 6768-6 66.00 U/L 024 [facility] [address] [place] [address] 88032 CHEM 14 (METABOLIC PANEL) 61032 SGOT/AST 1920-8 13 U/L 024 [facility] [address] [place] [address] 34810 CHEM 14 (METABOLIC PANEL) 63764 SGPT/ALT 1743-4 19 U/L 024 [facility] [address] [place] [address] 41814 CHEM 14 (METABOLIC PANEL) 44303 Total Bilirubin 1975-2 0.3 mg/dL 024 [facility] [address] [place] [address] 29995 CHEM 14 (METABOLIC PANEL) 00170 Calcium 84599-4 9.4 mg/dL 024 [facility] [address] [place] [address] CHEM 14 (METABOLIC PANEL) 98565 Corrected Calcium 33719-9 10.3 mg/dL 024 [facility] [address] [place] [address] CHOLESTEROL 57862 Cholesterol 2093-3 177 mg/dL 024 [facility] [address] [place] [address] TRIGLYCERIDES 51853 Triglycerides 2571-8 173 mg/dL 024 [facility] [address] [place] [address] TRIGLYCERIDES 12823 VLDL 46152-9 35 mg/dL 024 [facility] [address] [place] [address] Direct LDL 63872 LDL-Direct 47448-9 117 mg/dL 024 [facility] [address] [place] [address] 20058 COMPLETE CBC W/ DIFF WBC 08659 WBC 6690-2 6.8 K/ul 024 [facility] [address] [place] [address] 58527 COMPLETE CBC W/ DIFF WBC 08077 RBC 789-8 3.89 M/uL 024 [facility] [address] [place] [address] 12176 COMPLETE CBC W/ DIFF WBC 85289 Hemoglobin 718-7 10.6 g/dL 024 [facility] [address] [place] [address] 13879 COMPLETE CBC W/ DIFF WBC 23321 Hematocrit 4544-3 32.2 % 024 [facility] [address] [place] [address] 90650 COMPLETE CBC W/ DIFF WBC 33564 MCV 787-2 82.9 fL 024 [facility] [address] [place] [address] 63438 COMPLETE CBC W/ DIFF WBC 68246 MCH 785-6 27.3 pg 024 [facility] [address] [place] [address] 13759 COMPLETE CBC W/ DIFF WBC 23263 MCHC 786-4 32.9 g/dL 024 [facility] [address] [place] [address] 90573 COMPLETE CBC W/ DIFF WBC 96029 RDW 788-0 15.5 % 024 [facility] [address] [place] [address] COMPLETE CBC W/ DIFF WBC 69250 Platelet Count 777-3 303 K/uL 024 [facility] [address] [place] [address] COMPLETE CBC W/ DIFF WBC 21571 MPV 84602-3 8.0 fL 024 [facility] [address] [place] [address] COMPLETE CBC W/ DIFF WBC 24729 Neutrophils % 770-8 51.2 % 024 [facility] [address] [place] [address] COMPLETE CBC W/ DIFF WBC 10968 Lymphocytes % 736-9 39.8 % 024 [facility] [address] [place] [address] 40036 COMPLETE CBC W/ DIFF WBC 29169 Monocytes % 5905-5 6.7 % 024 [facility] [address] [place] [address] 39175 COMPLETE CBC W/ DIFF WBC 61329 Eosinophils % 713-8 2.1 % 024 [facility] [address] [place] [address] 99064 COMPLETE CBC W/ DIFF WBC 32280 Basophils% 706-2 0.2 % 024 [facility] [address] [place] [address] 37062 COMPLETE CBC W/ DIFF WBC 55971 Absolute Neutrophil 751-8 3482 /ul 024 [facility] [address] [place] [address] 03433 COMPLETE CBC W/ DIFF WBC 21430 Absolute Lymphocyte 96855-9 2706 /ul 024 [facility] [address] [place] [address] 15320 COMPLETE CBC W/ DIFF WBC 90734 Absolute Monocyte 742-7 456 /ul 024 [facility] [address] [place] [address] 64137 COMPLETE CBC W/ DIFF WBC 62264 Absolute Eosinophil 711-2 143 /ul 024 [facility] [address] [place] [address] 91460 COMPLETE CBC W/ DIFF WBC 36284 Absolute Basophil 704-7 14 /ul 024 [facility] [address] [place] [address] 07352 HDL - CHOL 50376 HDL 2085-9 30 mg/dL 024 [facility] [address] [place] [address] 49507 HDL - CHOL 03047 CHD 56580-0 17 % 024 [facility] [address] [place] [address] 78728 Procedures Procedure Codes Date Annual Wellness Visit (Initial Visit) CPT-4: G04 38 07/24/2024 FLU VACC CELL CULT PRSV FREE CPT-4: 58091 07/2024 Most recent A1c = 7.0% and < 8.0% CPT-4: 3051F 07/24/2024 FLUCEL VAX PFS VAC NO PRSV 0.5ML IM CPT-4: 67226 07/24/2024 Admin flu virus vaccine CPT-4: G0008 07/24/20 24 LEVEL OF ACTIVITY ASSESS CPT-4: 1003F 024 PT SCRN TBCO ID NON USER CPT-4: G9903 07/15 Current tobacco non-user CPT-4: 1036F 024 Amnt pain noted; none prsnt CPT-4: 1126F 07/15 MED LIST DOCD IN [facility] CPT-4: 1159F 07/24/2024 RVW MEDS BY RX/DR IN [facility] CPT-4: 116F 2023 Patient Screened for Future Fall Risk CPT-4: 110 0F 07/24/2024 Fall plan of care doc'd CPT-4: 0518F 07/24/20 24 Most recent A1c = 7.0% and < 8.0% CPT-4: 305F 06/24/2024 MED LIST DOCD IN [facility] CPT-4: 1159F 06/24/2024 RVW MEDS BY RX/DR IN [facility] CPT-4: 1160F 2023 Discharge Meds Reconciled w/ Current Med list CP T-4: 1111F 06/24/2024 Amnt pain noted; none prsnt CPT-4: 1126F 06/[address] CPT-4: 1159F 05/21/2024 RVW MEDS BY RX/DR IN [facility] CPT-4: 1160F 2023 Discharge Meds Reconciled w/ Current Med list CP T-4: 1111F 05/21/2024 Amnt pain noted; none prsnt CPT-4: 1126F 04/2024 Screening for clinical depre ssion is negative, follow-up plan not required CPT-4: G8510 05/21/2024 Patient Screened for Future Fall Risk CPT-4: 110 0F 05/21/2024 Fall plan of care doc'd CPT-4: 0518F 05/21/20 24 Cologuard CPT-4: 70975 Unknown A3M-Bwnypwkrdbovhbz CPT-4: 18772 Unknown Gastroenterology Referral SNOMED CT: 306 [id number] CPT-4: R12 Unknown Vital Signs Date Vital 07/24/2024 Blood Pressure 1: 120/82 Code: 8480-6 BMI: 32.3 Code: 35107-4 Heart Rate 1: 81 bpm Height: 6'4 Code: 8302-2 Respiratory Rate: 16 bpm SpO2: 97% Temperature: 36.1 (C) / 97.0 (F) Weight: 265 lbs Code: 42068-1 06/24/2024 Blood Pressure 1: 134/76 Code: 8480-6 BMI: 34.6 Code: 13396-1 Heart Rate 1: 86 bpm Height: 6'4 Code: 8302-2 Respiratory Rate: 17 bpm SpO2: 94% Temperature: 36.4 (C) / 97.6 (F) Weight: 284 lbs Code: 26887-1 05/21/2024 Blood Pressure 1: 135/82 Code: 8480-6 BMI: 32.3 Code: 44038-9 Heart Rate 1: 84 bpm Height: 6'4 Code: 8302-2 Respiratory Rate: 17 bpm SpO2: 93% Temperature: 35.6 (C) / 96.0 (F) Weight: 265 lbs Code: 01722-6 Reason For Visit Reason For Visit Effective [...] Diagnosis: At high risk for falls[ICD10: Z91.81] [facility] Office [address] [place] [address] CPT-4: G0438 4 (23190) Home or Residence Visit Est Pt - Low Level, 30 mins Diagnosis: Hemiparesis due to recent cerebrovascular accident (CVA)[ICD10: I69.359] Diagnosis: Diabetes mellitus due to underlying condition with diabetic neuropathy, with long-term current use of insulin[ICD10: E08.40] Diagnosis: USP (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[ICD10: Z79.4] Diagnosis: Diplopia[ICD10: [...] Diagnosis: At high risk for falls[ICD10: Z91.81] [facility] [address] [place] [address] CPT-4: 15434 4 (78775) Home or Residence Visit Est Pt - Moderate Level, 40 mins Diagnosis: Syncope[ICD10: R55] Diagnosis: Hemiparesis due to recent cerebrovascular accident (CVA)[ICD10: I69.359] Diagnosis: Diabetes mellitus due to underlying condition with diabetic neuropathy, with long-term current use of insulin[ICD10: E08.40] 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 On PT progressing J45.909-493.90 Asthma K21.9-530.81 GERD (gastroesophageal reflux disease): On Pepcid 07/24/2024 Appointment: Sean Kyle WPtel: [address] [facility] E034 07/24/2024 Patient Education: Obesity Completed [...] On Lantus Z79.4-V58.67 USP (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 On Lantus 15 [...] At high risk for falls: at present [facility] bound. On PT/OT for strengthening, balance, coordination Z12.11-V76.51 Colon cancer screening: Fuentes R05.8-786.2 Paroxysmal cough: poss due to poor pharyngeal reflex, GERD . Try Protonix. Oropharyngeal suctioning. Order Suction Aspirator 06/24/2024 Appointment: Sean Kyle WPtel: [address] [place], [place] [address] E034 06/24/2024 Patient Education: Obesity Completed 06/24/2024 Patient Education: Patient Medication Summary Completed 06/24/2024 Care Plan: Cologuard Ordered 06/15 Appointment: Oscar Hoyt WPtel: [address] [facility] [address] [id number] [place] Phone Call 06/20/2024 Appointment: Mony Moseley WPtel: [address] [id number] [place] Phone Call 06/06/2024 [facility] [facility] 05/26/2024 Visit Plan: I69.359-438.20 [...] late effect of cerebrovascular accident (CVA) Z79.4- 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 I69.322-438.13 Dysarthria as [...] findings 05/21/2024 Appointment: [facility] [facility] [facility] 05/21/2024 Patient Education: Patient Medication Summary Completed 05/21/2024 Patient Education: Obesity Completed 05/21/2024 Referral: [facility] W[facility]el: [address] [place], [place] [address] Referral faxed to: Agency Name: [facility] Agency Address: [address] [address] Agency Phone #: [phone] Agency Agency will contact the patient to schedule Order Faxed Referral: Pending Medical Records Information [facility] requires Consent when requesting records, there i currently no consent on file for the patient can we get consent uploaded to [facility] so we can finish the request. thank you On Hold Awaiting Documentation Referral: [facility] WPtel: [phone] [facility]- [address] Ruiz [address] [facility], [address], [place] [address] Reprocess Referral: Provider Ghada Hurtado WPtel: [address] [place] [address] 05/22/2024 order faxed to agency. Not Taken Up Referral: Residential home health WPtel: [facility] [address] [facility] [place] Referral ACT - [facility] Referral: Pending [employer] Referral Information lvm , provided the above agency information. Instructed to call O&R department if they do not hear back from agency withing 7-10 days.05/22/24 no answer, lvm to cb Spoke with office HVS Referral faxed to:[employer] Agency Name: _[facility] [employer] Agency Address:_ [address], [place] [address] Agency Phone #:_ Agency _ Agency will contact the patient to schedule appointment. Order Faxed Referral: Sean Kyle WPtel: [address] [facility] [address] [facility] [place][note 2][address] [place] Agency contacted, confirmed they're accepting new patients. They will run insurance once order is received Referral faxed to: Agency Name: [employer] Agency Address: [address] , [address], [place] [address] Agency Phone #:[phone] Agency Agency will ship to patient. pt has referral info Order Faxed Referral: Residential home health WPtel: [address] [id number] [place] Referral ACT - HH Cert Referral: Madiha Hurtado WPtel: [address] [facility] Notes & referral faxed to [facility] [phone] Order Faxed Referral: Pending Incontinence Supplies Order Information called and spoke to Nanette patient ANAYELIA an advised contact number given Order Faxed Referral: Sean Kyle WPtel: [address] [facility] 06-24-2024. Called pt. spoke with Jenn [...] all available medical records at my disposal. I69.688-438.20 Hemiparesis due to recent cerebrovascular accident (CVA): [...] placed R05.8-786.2 Paroxysmal cough R26.9-781.2 Gait abnormality: [facility] . On PT progressing J45.909-493.90 [...] At high risk for falls: at present [facility] bound. On PT/OT for strengthening, [...]
--- NOTE | 2025-08-14 21:59 | PC.NURSE ---
pt refused straight cath stating he wants to go by himself.
[2025-08-14 22:17] LABS: Add Urine Microscopic? YES; Appearance Urine Clear (Clear); Glucose Urine UA Negative (Negative); Leukocyte Esterase Ur Trace LEU/UL (Negative); Nitrate Urine Negative (Negative); Non Pathogenic Casts 0-2; Specific Grav Ur 1.026 (1.001-1.035)
[2025-08-14 22:48] LABS: Influenza A QL RT-PCR Negative (Negative); Influenza B QL RT-PCR Negative (Negative); RSV RNA, RT-PCR Negative (Negative); SARS-CoV-2 RNA PCR Negative (Negative)
[2025-08-15 00:03] VITALS: BP 128/78; PULSE 67; RESP 18; O2SAT 99
[2025-08-15 01:06] VITALS: BP 128/78; PULSE 67; RESP 18; O2SAT 99
== END 2025-08-15 01:10 ==
PROVIDERS: Emergency Medicine
DX: R53.1 Weakness (principal); R47.1 Dysarthria and anarthria; Z20.822 Contact with and (suspected) exposure to COVID-19; I69.328 Other speech and language deficits following cerebral infarction; I69.391 Dysphagia following cerebral infarction; R13.10 Dysphagia, unspecified; I65.1 Occlusion and stenosis of basilar artery; F17.290 Nicotine dependence, other tobacco product, uncomplicated; R94.31 Abnormal electrocardiogram [ECG] [EKG]
CPT/HCPCS: 36415; 70450; 71046; 80053; 81001; 85025; 87637; 93005; 99284